=== PATIENT | male | born 1955 ===

== ENCOUNTER 2022-04-19 11:29 | Inpatient (IN) | payer MEDICARE, MEDICAID, SELFPAY ==
--- NOTE | ~2022-04-19 | XR_ITS ---
EXAMINATION: XR CHEST CLINICAL INFORMATION: Chest pain COMPARISON: None TECHNIQUE: 2 views of the chest were obtained. FINDINGS: Lungs are well expanded. No evidence of interstitial or airspace disease. Cardiac silhouette is moderately enlarged. Mild prominence of central pulmonary vessels but no overt edema. The right lateral costophrenic sulcus is slightly blunted. A vascular stent is seen in the region of the left axillary/subclavian vessels. XR/XR chest 2V IMPRESSION: * Cardiomegaly and mild pulmonary vascular congestion. * Trace right pleural effusion is noted.
--- NOTE | 2022-04-19 11:31 | ECG_ITS ---
Test Reason : chest pain Blood Pressure : / mmHG Vent. Rate : 075 BPM Atrial Rate : 075 BPM P-R Int : 162 ms QRS Dur : 092 ms QT Int : 416 ms P-R-T Axes : 050 011 068 degrees QTc Int : 464 ms Normal sinus rhythm Low voltage QRS Cannot rule out Anterior infarct , age undetermined Abnormal ECG When compared with ECG of 12-APR-2010 10:09, ST no longer elevated in Lateral leads T wave inversion no longer evident in Inferior leads QT has lengthened Referred By: Generic ED Physician Electronically Signed By:Tim Lan
[2022-04-19 11:50] VITALS: BP 184/85; PULSE 78; RESP 20; TEMP 36.1; O2SAT 95; BMI 33.5
[2022-04-19 11:50] LABS: MANUAL DIFF FLAG NO
--- NOTE | 2022-04-19 11:52 | ED.CHESTPAIN ---
HPI - Chest Pain General Chief Complaint: Chest Pain <Margoth Pineda CNP - Last Filed: 04/19/22 11:59> Stated Complaint: Chest pain/Leg pain/SOB <Margoth Pineda CNP - Last Filed: 04/19/22 11:59> Time Seen by Provider: 04/19/22 13:18 <Margoth Pineda CNP - Last Filed: 04/19/22 11:59> Source: patient and family <Richar Roldan DO - Last Filed: 04/19/22 14:56> Mode of arrival: ambulatory <Richar Roldan DO - Last Filed: 04/19/22 14:56> Limitations: language barrier <Richar Roldan DO - Last Filed: 04/19/22 14:56> History of Present Illness HPI narrative: 66-year-old male noncompliant with his dialysis. He can only tolerate about 2 hours worth of skin graft pain he has had to be admitted to the hospital to [facility] every day for weeks on end. He states that if he lays flat now he has fluid coming out of his eyes and he is feeling so short of breath that he has been falling. It is he has some pain to his right leg into his right arm and chest from fall yesterday. Patient was here for some time before being seen had x-ray and labs time patient had an EKG which is nonischemic appears to be fluid overloaded he is complaining of fluid leaking from his eyes when he lays flat and has had swelling. Concern the patient is noncompliant with his dialysis I tried explained to the patient that he does get thing that he can tolerate it. <Richar Roldan DO - Last Filed: 04/19/22 14:56> MD complaint: chest pain and other <Richar Roldan DO - Last Filed: 04/19/22 14:56> Related Data Allergies/Adverse Reactions: Allergies Allergy/AdvReac Type Severity Reaction Status Date / Time No Known Allergies Allergy Verified 04/19/22 11:55 <Margoth Pineda CNP - Last Filed: 04/19/22 11:59> Review of Systems Review of Systems: Review of systems: General: Patient denies any fever chills recent illness or falls Musculoskeletal: Denies back pain or body aches or other injuries HEENT: denies headache, runny nose, ear pain Respiratory: shortness of breath, cough Cardiovascular: no chest pain or palpitations : denies dysuria, frequency Abdomen: no nausea vomiting denies abdominal pain Extremities: swelling, no pain Skin: no diaphoresis <Richar Roldan DO - Last Filed: 04/19/22 14:56> Yes all other systems are reviewed and are negative <Richar Roldan DO - Last Filed: 04/19/22 14:56> [facility] Social History Social History: Social History Advance Directives: No Advance Directives Information Provided: Yes <Margothbladimir Pineda CNP - Last Filed: 04/19/22 11:59> Physical Exam Vital Signs: Vital Signs: Last Vital Signs Temp 97.8 F 04/19/22 13:12 Pulse 79 04/19/22 13:12 Resp 18 04/19/22 13:12 BP 174/89 H 04/19/22 13:12 Pulse Ox 93 04/19/22 13:12 O2 Del Method 04/19/22 13:12 BMI result Body Mass Index 33.5 <Margoth Donato RAAD Pineda - Last Filed: 04/19/22 11:59> Vital Signs: Last Vital Signs Temp 97.8 F 04/19/22 13:12 Pulse 79 04/19/22 13:12 Resp 18 04/19/22 13:12 BP 174/89 H 04/19/22 13:12 Pulse Ox 93 04/19/22 13:12 O2 Del Method 04/19/22 13:12 BMI result Body Mass Index 33.5 <Richar Roldan DO - Last Filed: 04/19/22 14:56> General: Well-appearing well-nourished in no signs of distress HEENT: Normocephalic atraumatic Neck: No signs of JVD, no masses no tenderness or lymphadenopathy Cardiovascular: Regular rate and rhythm Respiratory: Clear to auscultation bilaterally Abdomen: Soft nontender no masses Extremities: Normal pedal pulses 1 + edema up to knees in abdomen Skin: Dry warm no rashes Back: No tenderness full ROM <Richar Roldan DO - Last Filed: 04/19/22 14:56> Course Course Course Narrative: This is an RME: Additional HPI, ROS, PE not included below will be deferred to primary provider. Patient is a 66 year old male who presents to the ED for evaluation of R sided chest pain since yesterday that is constant, weakness, multiple falls, nasal congestion, shortness of breath. Fall x 2 yesterday, without headstrike or LOC. Swelling to the legs, and to the face if he is supine for prolonged time such as with sleep Dialysis Monday, yesterday he only received 2 hours of dialysis as opposed to 4 hours because of cramping . Plan: labs, EKG, CXR, viral testing. at this time placed back in waiting room pending bed availability <Margoth Pineda CNP - Last Filed: 04/19/22 11:59> Medical Decision Making Medical Decision Making [facility] Narrative: Patient has never been here before. I will call nephrology. Patient does not appear to understand this and has not spoken to his door closer mechanic as he has had the same problem over the last 6 months. He does not know the name of his door closer mechanic.I spoke with Dr. Escobedo from Nephrology who agreed the patient would benefit from admission <Richar Roldan DO - Last Filed: 04/19/22 14:56> Differential Diagnosis Differential Diagnoses: The differential diagnosis associated with the presentation includes <Richar Roldan DO - Last Filed: 04/19/22 14:56> Chest pain unlikely ACS as he fell and hit his chest. He having CHF and is fluid overloaded due to not being able to tolerate his dialysis. <Richar Roldan DO - Last Filed: 04/19/22 14:56> Admission/Observation Consideration of admission/observation: Escalation of care including admission/observation considered <Richar Roldan DO - Last Filed: 04/19/22 14:56> Consult Healthcare Provider Management of the patient was discussed with: Pouch Maker <Richar Roldan DO - Last Filed: 04/19/22 14:56> Dr. Escobedo <Richar Roldan DO - Last Filed: 04/19/22 14:56> Lab Data [facility] Lab Attestation statement: I reviewed the patient's lab results. <Richar Roldan DO - Last Filed: 04/19/22 14:56> Result Diagrams: 04/19/22 11:44 04/19/22 11:44 <Margoth Pineda CNP - Last Filed: 04/19/22 11:59> Labs: Lab Results 04/19/22 04/19/22 04/19/22 Range/Units 11:44 11:44 11:44 WBC 6.7 (4.8-10.8) X10*3/uL RBC 5.69 (4.60-5.80) X10*6/uL Hgb 12.8 L (14.0-18.0) g/dl Hct 41.2 L (42.0-52.0) % MCV 72.4 L (80.0-98.0) fL MCH 22.5 L (27.0-33.0) pg MCHC 31.1 (31.0-36.0) g/dl RDW 17.8 H (11.0-16.0) % Plt Count 106 L (160-400) X10*3/uL MPV Not Reportable Immature Gran % (Auto) 0.4 (0.0-0.4) % Neut % (Auto) 69.3 (45-73) % Lymph % (Auto) 17.9 L (20-40) % [place] % (Auto) 9.5 (2-11) % Eos % (Auto) 2.5 (0-4) % Baso % (Auto) 0.4 (0-2) % Lymph # (Auto) 1.2 (1.2-4.9) X10*3/uL [place] # (Auto) 0.6 (0.1-1.2) X10*3/uL Eos # (Auto) 0.2 (0.0-0.4) X10*3/uL Baso # (Auto) 0.0 (0.0-0.2) X10*3/uL Abs Immat Gran (auto) 0.03 (0.00-0.03) X10*3/uL Absolute Neuts (auto) 4.6 (2.0-8.3) x10*3/uL Absolute Nucleated RBC 0.000 (0.0-0.012) X10*3/uL Nucleated RBC % (auto) 0.0 (0.0-0.2) /100WBC PT 15.0 H (10.0-13.1) SEC INR 1.3 H (0.9-1.1) Sodium 146 H (135-145) mmol/L Potassium 5.9 H (3.3-5.1) mmol/L Chloride 108 (96-108) mmol/L Carbon Dioxide 21 L (22-29) mmol/L Anion Gap 23 H (12-20) BUN 67 H (9-16) mg/dL Creatinine 12.51 H* (0.5-1.4) mg/dL Estim Creat Clear Calc 5.9 Estimated GFR 4 Random Glucose 197 H (60-115) mg/dL Calcium 7.4 L (8.4-10.2) mg/dL Magnesium 1.9 (1.6-2.6) mg/dL Total Bilirubin 0.6 (0.0-1.0) mg/dL AST 24 (5-37) U/L ALT 69 H (0-40) U/L Alkaline Phosphatase 150 H (39-117) U/L Troponin I High Sens (<3.5-35.0) ng/L B-Natriuretic Peptide (<100) pg/mL Total Protein 6.0 L (6.5-8.0) g/dL Albumin 3.6 (3.5-5.0) g/dL Lipase 41 (8-78) U/L COVID-19 ([facility]) (Negative) COVID-19 Clin Com Influenza Type A ([facility]YLE) (Negative) Influenza Type B (GAYLE) (Negative) Influenza A & B Note 04/19/22 04/19/22 04/19/22 Range/Units 11:44 11:44 11:44 WBC (4.8-10.8) X10*3/uL RBC (4.60-5.80) X10*6/uL Hgb (14.0-18.0) g/dl Hct (42.0-52.0) % MCV (80.0-98.0) fL MCH (27.0-33.0) pg MCHC (31.0-36.0) g/dl RDW (11.0-16.0) % Plt Count (160-400) X10*3/uL MPV Immature Gran % (Auto) (0.0-0.4) % Neut % (Auto) (45-73) % Lymph % (Auto) (20-40) % [place] % (Auto) (2-11) % Eos % (Auto) (0-4) % Baso % (Auto) (0-2) % Lymph # (Auto) (1.2-4.9) X10*3/uL [place] # (Auto) (0.1-1.2) X10*3/uL Eos # (Auto) (0.0-0.4) X10*3/uL Baso # (Auto) (0.0-0.2) X10*3/uL Abs Immat Gran (auto) (0.00-0.03) X10*3/uL Absolute Neuts (auto) (2.0-8.3) x10*3/uL Absolute Nucleated RBC (0.0-0.012) X10*3/uL Nucleated RBC % (auto) (0.0-0.2) /100WBC PT (10.0-13.1) SEC INR (0.9-1.1) Sodium (135-145) mmol/L Potassium (3.3-5.1) mmol/L Chloride (96-108) mmol/L Carbon Dioxide (22-29) mmol/L Anion Gap (12-20) BUN (9-16) mg/dL Creatinine (0.5-1.4) mg/dL Estim Creat Clear Calc Estimated GFR Random Glucose (60-115) mg/dL Calcium (8.4-10.2) mg/dL Magnesium (1.6-2.6) mg/dL Total Bilirubin (0.0-1.0) mg/dL AST (5-37) U/L ALT (0-40) U/L Alkaline Phosphatase (39-117) U/L Troponin I High Sens 76.3 H (<3.5-35.0) ng/L B-Natriuretic Peptide 3238 H (<100) pg/mL Total Protein (6.5-8.0) g/dL Albumin (3.5-5.0) g/dL Lipase (8-78) U/L COVID-19 ([facility]) (Negative) COVID-19 Clin Com Influenza Type A ([facility]YLE) Negative (Negative) Influenza Type B (GAYLE) Negative (Negative) Influenza A & B Note See Note 04/19/22 Range/Units 11:44 WBC (4.8-10.8) X10*3/uL RBC (4.60-5.80) X10*6/uL Hgb (14.0-18.0) g/dl Hct (42.0-52.0) % MCV (80.0-98.0) fL MCH (27.0-33.0) pg MCHC (31.0-36.0) g/dl RDW (11.0-16.0) % Plt Count (160-400) X10*3/uL MPV Immature Gran % (Auto) (0.0-0.4) % Neut % (Auto) (45-73) % Lymph % (Auto) (20-40) % [place] % (Auto) (2-11) % Eos % (Auto) (0-4) % Baso % (Auto) (0-2) % Lymph # (Auto) (1.2-4.9) X10*3/uL [place] # (Auto) (0.1-1.2) X10*3/uL Eos # (Auto) (0.0-0.4) X10*3/uL Baso # (Auto) (0.0-0.2) X10*3/uL Abs Immat Gran (auto) (0.00-0.03) X10*3/uL Absolute Neuts (auto) (2.0-8.3) x10*3/uL Absolute Nucleated RBC (0.0-0.012) X10*3/uL Nucleated RBC % (auto) (0.0-0.2) /100WBC PT (10.0-13.1) SEC INR (0.9-1.1) Sodium (135-145) mmol/L Potassium (3.3-5.1) mmol/L Chloride (96-108) mmol/L Carbon Dioxide (22-29) mmol/L Anion Gap (12-20) BUN (9-16) mg/dL Creatinine (0.5-1.4) mg/dL Estim Creat Clear Calc Estimated GFR Random Glucose (60-115) mg/dL Calcium (8.4-10.2) mg/dL Magnesium (1.6-2.6) mg/dL Total Bilirubin (0.0-1.0) mg/dL AST (5-37) U/L ALT (0-40) U/L Alkaline Phosphatase (39-117) U/L Troponin I High Sens (<3.5-35.0) ng/L B-Natriuretic Peptide (<100) pg/mL Total Protein (6.5-8.0) g/dL Albumin (3.5-5.0) g/dL Lipase (8-78) U/L COVID-19 ([facility]) Negative (Negative) COVID-19 Clin Com See Note Influenza Type A ([facility]YLE) (Negative) Influenza Type B ([facility]YLE) (Negative) Influenza A & B Note <Margoth Pineda, MANAGEMENT RECRUITER - Last Filed: 04/19/22 11:59> Lab Results 04/19/22 04/19/22 04/19/22 Range/Units 11:44 11:44 11:44 WBC 6.7 (4.8-10.8) X10*3/uL RBC 5.69 (4.60-5.80) X10*6/uL Hgb 12.8 L (14.0-18.0) g/dl Hct 41.2 L (42.0-52.0) % MCV 72.4 L (80.0-98.0) fL MCH 22.5 L (27.0-33.0) pg MCHC 31.1 (31.0-36.0) g/dl RDW 17.8 H (11.0-16.0) % Plt Count 106 L (160-400) X10*3/uL MPV Not Reportable Immature Gran % (Auto) 0.4 (0.0-0.4) % Neut % (Auto) 69.3 (45-73) % Lymph % (Auto) 17.9 L (20-40) % [place] % (Auto) 9.5 (2-11) % Eos % (Auto) 2.5 (0-4) % Baso % (Auto) 0.4 (0-2) % Lymph # (Auto) 1.2 (1.2-4.9) X10*3/uL [place] # (Auto) 0.6 (0.1-1.2) X10*3/uL Eos # (Auto) 0.2 (0.0-0.4) X10*3/uL Baso # (Auto) 0.0 (0.0-0.2) X10*3/uL Abs Immat Gran (auto) 0.03 (0.00-0.03) X10*3/uL Absolute Neuts (auto) 4.6 (2.0-8.3) x10*3/uL Absolute Nucleated RBC 0.000 (0.0-0.012) X10*3/uL Nucleated RBC % (auto) 0.0 (0.0-0.2) /100WBC PT 15.0 H (10.0-13.1) SEC INR 1.3 H (0.9-1.1) Sodium 146 H (135-145) mmol/L Potassium 5.9 H (3.3-5.1) mmol/L Chloride 108 (96-108) mmol/L Carbon Dioxide 21 L (22-29) mmol/L Anion Gap 23 H (12-20) BUN 67 H (9-16) mg/dL Creatinine 12.51 H* (0.5-1.4) mg/dL Estim Creat Clear Calc 5.9 Estimated GFR 4 Random Glucose 197 H (60-115) mg/dL Calcium 7.4 L (8.4-10.2) mg/dL Magnesium 1.9 (1.6-2.6) mg/dL Total Bilirubin 0.6 (0.0-1.0) mg/dL AST 24 (5-37) U/L ALT 69 H (0-40) U/L Alkaline Phosphatase 150 H (39-117) U/L Troponin I High Sens (<3.5-35.0) ng/L B-Natriuretic Peptide (<100) pg/mL Total Protein 6.0 L (6.5-8.0) g/dL Albumin 3.6 (3.5-5.0) g/dL Lipase 41 (8-78) U/L COVID-19 ([facility]) (Negative) COVID-19 Clin Com Influenza Type A ([facility]) (Negative) Influenza Type B ([facility]YLE) (Negative) Influenza A & B Note 04/19/22 04/19/22 04/19/22 Range/Units 11:44 11:44 11:44 WBC (4.8-10.8) X10*3/uL RBC (4.60-5.80) X10*6/uL Hgb (14.0-18.0) g/dl Hct (42.0-52.0) % MCV (80.0-98.0) fL MCH (27.0-33.0) pg MCHC (31.0-36.0) g/dl RDW (11.0-16.0) % Plt Count (160-400) X10*3/uL MPV Immature Gran % (Auto) (0.0-0.4) % Neut % (Auto) (45-73) % Lymph % (Auto) (20-40) % [place] % (Auto) (2-11) % Eos % (Auto) (0-4) % Baso % (Auto) (0-2) % Lymph # (Auto) (1.2-4.9) X10*3/uL [place] # (Auto) (0.1-1.2) X10*3/uL Eos # (Auto) (0.0-0.4) X10*3/uL Baso # (Auto) (0.0-0.2) X10*3/uL Abs Immat Gran (auto) (0.00-0.03) X10*3/uL Absolute Neuts (auto) (2.0-8.3) x10*3/uL Absolute Nucleated RBC (0.0-0.012) X10*3/uL Nucleated RBC % (auto) (0.0-0.2) /100WBC PT (10.0-13.1) SEC INR (0.9-1.1) Sodium (135-145) mmol/L Potassium (3.3-5.1) mmol/L Chloride (96-108) mmol/L Carbon Dioxide (22-29) mmol/L Anion Gap (12-20) BUN (9-16) mg/dL Creatinine (0.5-1.4) mg/dL Estim Creat Clear Calc Estimated GFR Random Glucose (60-115) mg/dL Calcium (8.4-10.2) mg/dL Magnesium (1.6-2.6) mg/dL Total Bilirubin (0.0-1.0) mg/dL AST (5-37) U/L ALT (0-40) U/L Alkaline Phosphatase (39-117) U/L Troponin I High Sens 76.3 H (<3.5-35.0) ng/L B-Natriuretic Peptide 3238 H (<100) pg/mL Total Protein (6.5-8.0) g/dL Albumin (3.5-5.0) g/dL Lipase (8-78) U/L COVID-19 ([facility]) (Negative) COVID-19 Clin Com Influenza Type A ([facility]) Negative (Negative) Influenza Type B ([facility]YLE) Negative (Negative) Influenza A & B Note See Note 04/19/22 Range/Units 11:44 WBC (4.8-10.8) X10*3/uL RBC (4.60-5.80) X10*6/uL Hgb (14.0-18.0) g/dl Hct (42.0-52.0) % MCV (80.0-98.0) fL MCH (27.0-33.0) pg MCHC (31.0-36.0) g/dl RDW (11.0-16.0) % Plt Count (160-400) X10*3/uL MPV Immature Gran % (Auto) (0.0-0.4) % Neut % (Auto) (45-73) % Lymph % (Auto) (20-40) % [place] % (Auto) (2-11) % Eos % (Auto) (0-4) % Baso % (Auto) (0-2) % Lymph # (Auto) (1.2-4.9) X10*3/uL [place] # (Auto) (0.1-1.2) X10*3/uL Eos # (Auto) (0.0-0.4) X10*3/uL Baso # (Auto) (0.0-0.2) X10*3/uL Abs Immat Gran (auto) (0.00-0.03) X10*3/uL Absolute Neuts (auto) (2.0-8.3) x10*3/uL Absolute Nucleated RBC (0.0-0.012) X10*3/uL Nucleated RBC % (auto) (0.0-0.2) /100WBC PT (10.0-13.1) SEC INR (0.9-1.1) Sodium (135-145) mmol/L Potassium (3.3-5.1) mmol/L Chloride (96-108) mmol/L Carbon Dioxide (22-29) mmol/L Anion Gap (12-20) BUN (9-16) mg/dL Creatinine (0.5-1.4) mg/dL Estim Creat Clear Calc Estimated GFR Random Glucose (60-115) mg/dL Calcium (8.4-10.2) mg/dL Magnesium (1.6-2.6) mg/dL Total Bilirubin (0.0-1.0) mg/dL AST (5-37) U/L ALT (0-40) U/L Alkaline Phosphatase (39-117) U/L Troponin I High Sens (<3.5-35.0) ng/L B-Natriuretic Peptide (<100) pg/mL Total Protein (6.5-8.0) g/dL Albumin (3.5-5.0) g/dL Lipase (8-78) U/L COVID-19 ([facility]) Negative (Negative) COVID-19 Clin Com See Note Influenza Type A ([facility]) (Negative) Influenza Type B ([facility]YLE) (Negative) Influenza A & B Note <Richar Roldan DO - Last Filed: 04/19/22 14:56> Critical Care Time Critical Care Time Critical Care Time: Yes <DO Marilin Darnell Last Filed: 04/19/22 14:56> Total Critical Care Time: 32 <DO Marilin Darnell Last Filed: 04/19/22 14:56> Attestation: Fluid overload discussion with nephrology <DO Marilin Darnell Last Filed: 04/19/22 14:56> Discharge Plan Discharge Clinical Impression: Dialysis complication, Congestive heart disease, Falling <Margoth Pineda CNP - Last Filed: 04/19/22 11:59> Patient Disposition: Admitted As Inpatient <Margoth Pineda CNP - Last Filed: 04/19/22 11:59>
[2022-04-19 11:57] LABS: INTERNATIONAL NORM RATIO 1.3 (0.9-1.1)
[2022-04-19 12:07] LABS: COVID-19 Test Negative (Negative); IDNOW Serial# 16C4AD1C
[2022-04-19 12:08] LABS: IDNOW Serial# BCCEAD1C; Influenza A Negative (Negative); Influenza B2 Negative (Negative)
[2022-04-19 12:09] LABS: Basophils Percent Auto 0.4 % (0-2); Eosinophils Absolute Auto 0.2 X10*3/uL (0.0-0.4); Eosinophils Percent Auto 2.5 % (0-4); Hematocrit 41.2 % (42.0-52.0); Hemoglobin 12.8 g/dl (14.0-18.0); Imm Gran Abs Auto 0.03 X10*3/uL (0.00-0.03); Imm Gran Pct Auto 0.4 % (0.0-0.4); Lymphocytes Absolute Auto 1.2 X10*3/uL (1.2-4.9); Lymphocytes Percent Auto 17.9 % (20-40); Mean Corpuscular HGB Conc 31.1 g/dl (31.0-36.0); Mean Corpuscular Hemoglobin 22.5 pg (27.0-33.0); Mean Corpuscular Volume 72.4 fL (80.0-98.0); Monocytes Absolute Auto 0.6 X10*3/uL (0.1-1.2); Monocytes Percent Auto 9.5 % (2-11); Neutrophils Absolute Auto 4.6 x10*3/uL (2.0-8.3); Neutrophils Percent Auto 69.3 % (45-73); Red Blood Count 5.69 X10*6/uL (4.60-5.80); Red Cell Distribution Width 17.8 % (11.0-16.0); White Blood Count 6.7 X10*3/uL (4.8-10.8)
[2022-04-19 12:12] LABS: B Type Natriuretic Peptide 3238 pg/mL (<100); Troponin-I High Sensitivity 76.3 ng/L (<3.5-35.0)
[2022-04-19 12:15] LABS: Alanine Aminotransferase 69 U/L (0-40); Albumin Level 3.6 g/dL (3.5-5.0); Alkaline Phosphatase 150 U/L (39-117); Aspartate Amino Transferase 24 U/L (5-37); Bilirubin Total 0.6 mg/dL (0.0-1.0); Calcium 7.4 mg/dL (8.4-10.2); Glucose Random 197 mg/dL (60-115); Lipase 41 U/L (8-78); Magnesium 1.9 mg/dL (1.6-2.6)
[2022-04-19 12:24] LABS: Platelet Count 106 X10*3/uL (160-400)
[2022-04-19 12:27] LABS: Anion Gap 23 (12-20); Blood Urea Nitrogen 67 mg/dL (9-16); Carbon Dioxide 21 mmol/L (22-29); Chloride 108 mmol/L (96-108); Creatinine Clr Calc Pharmacy 5.9; Estimated Glomerular Filt Rate 4; Potassium 5.9 mmol/L (3.3-5.1); Sodium 146 mmol/L (135-145)
[2022-04-19 13:12] VITALS: BP 174/89; PULSE 79; RESP 18; TEMP 36.6; O2SAT 93
[2022-04-19 14:56] VITALS: BP 172/77; PULSE 75; RESP 15; TEMP 36.6; O2SAT 97
--- NOTE | 2022-04-19 16:20 | P.HPHOSP_ITS ---
History of Present Illness Date of Service: 04/19/22 Attending physician on admission: Lily Candelario Chief Complaint: anasarca 66 year old male with ROBERT noncompliant with CPAP, insulin dependent type 2 diabetes, dyslipidemia, ESRD on dialysis MWF with [facility] [place], htn, hx occlusive thrombus on eliquis presented to the ED earlier this morning for evaluation of anasarca, orthopnea, diffuse myalgias and weakness. The patient has an AV fistula in the left arm and has been unable to tolerate more than 1-2 hours of his dialysis due to diffuse cramping though is compliant with attending dialysis appointments with last visit yesterday. He states the symptoms have been going on for about 2 weeks. On arrival, patient hypertensive to 172/77, vitals otherwise stable. No leukocytosis. Microcytic anemia with H/H 12.8/41.2%, MCV 72.4. Platelets 106. Creatinine 12.51, BUN 67. Sodium 146, potassium 5.9, chloride 108, CO2 21, anion gap 23. AST 24, ALT 69, alkaline phosphatase 150, initial troponin 76.3, repeat pending. BNP 3238. Negative for COVID-19, influenza. CXR showing cardiomegaly and mild pulmonary vascular congestion with trace right pleural effusions. Patient states he only produces minimal urine. ED discussed case with Dr. Escobedo recommending admission for ESRD and anasarca. Review of Systems Review of Systems: General: No fevers, malaise, unintentional weight loss Cardiovascular: No chest pain, palpitations, or leg edema Respiratory: +ya, +orthopnea. No wheezing, cough GI: No abdominal pain, nausea, vomiting, diarrhea, constipation, melena, hematochezia : No dysuria, hematuria, increased urinary frequency, decreased urinary output MSK: +myalgia. No back pain Neuro: +generalized weakenss. No headaches, focal weakness, paresthesias Skin: No rashes or lesions [facility] Medical History (Updated 04/19/22 @ 16:51 by KYLAH Damon) A-V fistula ESRD on dialysis Hyperlipidemia Hypertension Noncompliance with CPAP treatment Occlusive thrombus ROBERT (obstructive sleep apnea) Pulmonary edema Type 2 diabetes mellitus Social History (Updated 04/19/22 @ 16:40 by KYLAH Damon) Alcohol intake: never Patient Tobacco Use Status: Former Tobacco user Use of substances other than those prescribed or required for medical reasons: No Advance Directives: No Advance Directives Information Provided: Yes Meds Allergies Allergy/AdvReac Type Severity Reaction Status Date / Time No Known Allergies Allergy Verified 04/19/22 11:55 Physical Exam Vital Signs and Narrative: Vital Signs: Last Vital Signs Temp 97.8 F 04/19/22 14:56 Pulse 75 04/19/22 14:56 Resp 15 04/19/22 14:56 BP 172/77 H 04/19/22 14:56 Pulse Ox 97 04/19/22 14:56 O2 Del Method 04/19/22 14:56 O2 Flow Rate 2 04/19/22 14:56 BMI result Body Mass Index 33.5 Constitutional - Awake and Alert, No apparent distress Eyes - PERRLA, EOMI Cardiovascular - S1S2, RRR, anasarca ble and bue, face, and abdomen Respiratory - Normal lung expansion, Normal respiratory effort, No respiratory distress, CTA bilaterally Gastrointestinal - NT / ND; +BS; No rebound or guarding Extremities - no calf tenderness bilaterally, no swelling Skin - Warm/Dry Neurological - Alert & oriented x3, CN II-XII in tact, 4/5 strength BUE and BLE Psychological - Appropriate affect Results Labs 04/19/22 11:44 04/19/22 11:44 Labs: Laboratory Results - last 24 hr 04/19/22 04/19/22 04/19/22 11:44 11:44 11:44 MCV 72.4 L MCH 22.5 L MCHC 31.1 RDW 17.8 H Plt Count 106 L MPV Not Reportable Immature Gran % (Auto) 0.4 Neut % (Auto) 69.3 Lymph % (Auto) 17.9 L [place] % (Auto) 9.5 Eos % (Auto) 2.5 Baso % (Auto) 0.4 Lymph # (Auto) 1.2 [place] # (Auto) 0.6 Eos # (Auto) 0.2 Baso # (Auto) 0.0 Abs Immat Gran (auto) 0.03 Absolute Neuts (auto) 4.6 Absolute Nucleated RBC 0.000 Nucleated RBC % (auto) 0.0 PT 15.0 H INR 1.3 H Anion Gap 23 H Estim Creat Clear Calc 5.9 Estimated GFR 4 Random Glucose 197 H Calcium 7.4 L Magnesium 1.9 Total Bilirubin 0.6 AST 24 ALT 69 H Alkaline Phosphatase 150 H Troponin I High Sens B-Natriuretic Peptide Total Protein 6.0 L Albumin 3.6 Lipase 41 COVID-19 ([facility]) COVID-19 Clin Com Influenza Type A ([facility]YLE) Influenza Type B ([facility]YLE) Influenza A & B Note 04/19/22 04/19/22 04/19/22 11:44 11:44 11:44 MCV MCH MCHC RDW Plt Count MPV Immature Gran % (Auto) Neut % (Auto) Lymph % (Auto) [place] % (Auto) Eos % (Auto) Baso % (Auto) Lymph # (Auto) [place] # (Auto) Eos # (Auto) Baso # (Auto) Abs Immat Gran (auto) Absolute Neuts (auto) Absolute Nucleated RBC Nucleated RBC % (auto) PT INR Anion Gap Estim Creat Clear Calc Estimated GFR Random Glucose Calcium Magnesium Total Bilirubin AST ALT Alkaline Phosphatase Troponin I High Sens 76.3 H B-Natriuretic Peptide 3238 H Total Protein Albumin Lipase COVID-19 ([facility]) COVID-19 [employer] Com Influenza Type A ([facility]YLE) Negative Influenza Type B ([facility]YLE) Negative Influenza A & B Note See Note 04/19/22 11:44 MCV MCH MCHC RDW Plt Count MPV Immature Gran % (Auto) Neut % (Auto) Lymph % (Auto) [place] % (Auto) Eos % (Auto) Baso % (Auto) Lymph # (Auto) [place] # (Auto) Eos # (Auto) Baso # (Auto) Abs Immat Gran (auto) Absolute Neuts (auto) Absolute Nucleated RBC Nucleated RBC % (auto) PT INR Anion Gap Estim Creat Clear Calc Estimated GFR Random Glucose Calcium Magnesium Total Bilirubin AST ALT Alkaline Phosphatase Troponin I High Sens B-Natriuretic Peptide Total Protein Albumin Lipase COVID-19 ([place]) Negative COVID-19 Clin Com See Note Influenza Type A (GAYLE) Influenza Type B (GAYLE) Influenza A & B Note Imaging Radiologist's Impressions: Impressions Chest X-Ray 04/19/22 12:13 IMPRESSION: * Cardiomegaly and mild pulmonary vascular congestion. * Trace right pleural effusion is noted. Assessment and Plan (1) ESRD on dialysis: Status: Acute Plan 66 year old male with ROBERT noncompliant with CPAP, insulin dependent type 2 diabetes, dyslipidemia, ESRD on dialysis MWF with [facility], htn, hx occlusive thrombus on eliquis admitted for ESRD with anasarca and pulmonary edema. #ESRD on dialysis -Creat 12.51, BUN 67 -AV fistula LUE. Compliant with dialysis appts but has only been able to tolerate 1-2 hours per sessions MWF -Discussed with Dr. escobedo, HD tomorrow -Appreciate nephrology input -Avoid nephrotoxins -Low sodium diet -Follow BMP -admit to telemetry #Anasarca and pulmonary edema- cardiorenal in etiology r/t ESRD -Only produces minimal urine, not likely to benefit from diuretics -HD tomorrow as above #Elevated trops- likely cardiorenal -initial troponin 76.3. Repeat pending -patient denies any chest pain. EKG nonischemic #Elevated BNP -Likely cardiorenal r/t ESRD -symptomatic with orthopnea, dyspnea on exertion -CXR with pulmonary edema. Pt does not produce much urine,not likely to benefit from diuretics -HD tomorrow as above -consider echo if no improvements #Hyperkalemia- r/t ESRD -K 5.9 -10mg lokelma once -HD tomorrow -No peaked t waves on ekg -follow bmp -Hx occlusive thombus right IJ -continue eliquis DVT prophylaxis-on Eliquis Full code Patient requires inpatient stay of at least 2 midnights for management ESRD with anasarca and pulmonary edema as well as electrolyte abnormalities requiring hemodialysis and very close monitoring of renal function electrolyte levels and expert consultation Time Spent With Patient Time: Total time managing care of this patient today ____ minutes. Quality Stroke Does the patient have a stroke diagnosis?: No VTE Prior VTE?: No VTE Risk Level:: Medical - moderate - high VTE Device Contraindication: Treatment Not Indicated VTE Drug Contraindication: N/A - Med Ordered
--- NOTE | 2022-04-19 16:53 | PHA.MEDREC ---
Pharmacy Consult ? Medication Reconciliation Pharmacy has completed the medication reconciliation.
[2022-04-19] MEDS: Sodium Zirconium Cyclosilicate 10 GM POWD.PACK PO (17:06)
[2022-04-19 17:12] LABS: Troponin-I High Sensitivity 69.3 ng/L (<3.5-35.0)
[2022-04-19] MEDS: Sevelamer Carbonate Tablet 800 MG TABLET 1600 MG PO (17:57)
--- NOTE | 2022-04-19 19:08 | PC.NURSE ---
Pt amublates to restroom however needs a stand by assist
[2022-04-19 19:47] VITALS: BP 157/71; PULSE 80; RESP 13; TEMP 36.7; O2SAT 95
[2022-04-19] MEDS: guaiFENesin 100 MG/5 ML LIQUID 15 ML PO (21:34)
[2022-04-19] MEDS: hydrALAZINE HCl 25 MG TABLET PO (21:35)
[2022-04-19] MEDS: carvediloL 3.125 MG TABLET PO (21:35)
[2022-04-19] MEDS: Doxazosin Mesylate 2 MG TABLET 4 MG PO (21:35)
[2022-04-19] MEDS: Sennosides/Docusate Sodium TABLET 1 TAB PO (21:35)
[2022-04-19] MEDS: Apixaban 5 MG TABLET PO (21:35)
[2022-04-19 22:33] LABS: Glucose, Whole Blood 209 mg/dL (60-115)
[2022-04-19] MEDS: Insulin Lispro 100 UNIT/ML 3 ML VIAL SUBCUT (22:45)
[2022-04-19] MEDS: Acetaminophen 325 MG TABLET 650 MG PO (23:22)
[2022-04-19] MEDS: Albuterol/Iprat 2.5/0.5MG 3 ML AMPUL.NEB INHALE (23:39)
[2022-04-19 23:42] VITALS: PULSE 75; RESP 18; O2SAT 95
[2022-04-20] VITALS (8 sets, daily range): BP systolic 134–188; BP diastolic 64–97; PULSE 68–94; RESP 16–20; TEMP 36.4–36.9; O2SAT 91–98; BMI 33.4
[2022-04-20] MEDS: Acetaminophen 325 MG TABLET 650 MG PO (05:29)
[2022-04-20] MEDS: Omeprazole 20 MG CAPSULE.DR PO (05:30)
[2022-04-20 06:36] LABS: MANUAL DIFF FLAG NO
[2022-04-20 06:48] LABS: Basophils Percent Auto 0.6 % (0-2); Eosinophils Absolute Auto 0.3 X10*3/uL (0.0-0.4); Eosinophils Percent Auto 4.3 % (0-4); Hematocrit 40.2 % (42.0-52.0); Hemoglobin 12.4 g/dl (14.0-18.0); Imm Gran Abs Auto 0.03 X10*3/uL (0.00-0.03); Imm Gran Pct Auto 0.4 % (0.0-0.4); Lymphocytes Absolute Auto 1.4 X10*3/uL (1.2-4.9); Lymphocytes Percent Auto 18.8 % (20-40); Mean Corpuscular HGB Conc 30.8 g/dl (31.0-36.0); Mean Corpuscular Hemoglobin 22.3 pg (27.0-33.0); Mean Corpuscular Volume 72.4 fL (80.0-98.0); Monocytes Absolute Auto 0.7 X10*3/uL (0.1-1.2); Monocytes Percent Auto 10.1 % (2-11); Neutrophils Absolute Auto 4.7 x10*3/uL (2.0-8.3); Neutrophils Percent Auto 65.8 % (45-73); Red Blood Count 5.55 X10*6/uL (4.60-5.80); Red Cell Distribution Width 17.2 % (11.0-16.0); White Blood Count 7.2 X10*3/uL (4.8-10.8)
[2022-04-20 06:51] LABS: Platelet Count 97 X10*3/uL (160-400)
[2022-04-20 07:04] LABS: Blood Urea Nitrogen 75 mg/dL (9-16); Calcium 7.4 mg/dL (8.4-10.2); Creatinine Clr Calc Pharmacy 5.4; Estimated Glomerular Filt Rate 4; Glucose Random 63 mg/dL (60-115)
[2022-04-20 07:09] LABS: Anion Gap 25 (12-20); Carbon Dioxide 18 mmol/L (22-29); Chloride 110 mmol/L (96-108); Potassium 5.9 mmol/L (3.3-5.1); Sodium 147 mmol/L (135-145)
[2022-04-20 07:25] LABS: Glucose, Whole Blood 67 mg/dL (60-115)
[2022-04-20] MEDS: Fluticasone/Vilanterol 100/25 BLST.W.DEV 1 PUFF INHALE (07:49)
[2022-04-20 08:22] LABS: Glucose, Whole Blood 84 mg/dL (60-115)
[2022-04-20 08:51] LABS: Glucose, Whole Blood 119 mg/dL (60-115)
--- NOTE | 2022-04-20 11:32 | P.CONNP_ITS ---
History of Present Illness Reason for Consult Consult date: 04/20/22 Chief Complaint Chief complaint: ESRD, anasarca History of Present Illness Narrative: 66-year-old gentleman with history of end-stage renal disease presented with generalized edema, orthopnea and myalga. He normally has hemodialysis Monday and produces minimal urine. Apparently the patient is unable to tolerate hemodialysis more than 1-2 hours due to diffuse cramping. At the time of the consultation he is having dialysis. Review of Systems Review of Systems 10 points ROS negative except for pertinent in HPI [facility] Past Medical History Medical History (Updated 04/20/22 @ 11:36 by Kole Escobedo MD) A-V fistula ESRD on dialysis Hyperlipidemia Hypertension Noncompliance with CPAP treatment Occlusive thrombus ROBERT (obstructive sleep apnea) Pulmonary edema Type 2 diabetes mellitus Social History Social History (Updated 04/19/22 @ 16:40 by KYLAH Damon) Household Members: Family Housing: House Alcohol intake: never Patient Tobacco Use Status: Former Tobacco user Use of substances other than those prescribed or required for medical reasons: No Currently Displaying Signs/Symptoms of Drug Intoxication Withdrawal: No Have you been hit, kicked, punched, or otherwise hurt by someone within the past year? If so, by whom?: No Do you feel safe in your current relationship?: Yes Is there a partner from a previous relationship who is making you feel unsafe now?: No Are you made to feel afraid or neglected: No Advance Directives: No Advance Directives Information Provided: Yes Do you have thoughts of harming others: None Do you have a plan to hurt others: No Plan Recently lost weight without trying: No Meds Allergies Allergy/AdvReac Type Severity Reaction Status Date / Time No Known Allergies Allergy Verified 04/19/22 11:55 Active Medications: Current Medications Acetaminophen (Acetaminophen 325 Mg Tablet) 650 mg PO Q6H PRN PRN Reason: Pain, Mild (Pain Scale 1-3) Last Admin: 04/20/22 05:29 Dose: 650 mg Albuterol Sulfate (Albuterol Sulfate 90 Mcg 8 Gm Inhaler) 2 puff INHALE Q4H PRN PRN Reason: Shortness Of Breath Albuterol/Ipratropium (Albuterol/Iprat 2.5/0.5mg 3 Ml Ampul.Neb) 3 ml INHALE Q4 H PRN PRN Reason: Wheezing Last Admin: 04/19/22 23:39 Dose: 3 ml Allopurinol (Allopurinol 100 Mg Tablet) 100 mg PO MOWEFR@1600 [facility] Apixaban (Apixaban 5 Mg Tablet) 5 mg PO BID [facility] Last Admin: 04/19/22 21:35 Dose: 5 mg Aspirin (Aspirin Enteric Coated 81 Mg Tablet.) 81 mg PO DAILY [facility] Atorvastatin Calcium (Atorvastatin Calcium 40 Mg Tablet) 40 mg PO DAILY [facility] Carvedilol (Carvedilol 3.125 Mg Tablet) 3.125 mg PO BID [facility]; Protocol Last Admin: 04/19/22 21:35 Dose: 3.125 mg Dextrose (Dextrose 50 % 25 Gm/50 Ml Syringe) 25 gm IVPUSH Q15M PRN; Protocol PRN Reason: per Hypoglycemia Standing Ord. Docusate Sodium (Docusate Sodium 100 Mg Capsule) 100 mg PO DAILY PRN PRN Reason: Constipation Doxazosin Mesylate (Doxazosin Mesylate 2 Mg Tablet) 4 mg PO BEDTIME [facility]; Protocol Last Admin: 04/19/22 21:35 Dose: 4 mg Fluticasone/Vilanterol (Fluticasone/Vilanterol 100/25 Blst.W.Dev) 1 puff INHALE RDAILY [facility] Last Admin: 04/20/22 07:49 Dose: 1 puff Furosemide (Furosemide 40 Mg Tablet) 80 mg PO DAILY [facility]; Protocol Glucose (Glucose Gel 15 Gm Gel..Gram.) 15 gm PO Q15M PRN; Protocol PRN Reason: per Hypoglycemia Standing Ord. Guaifenesin (Guaifenesin 100 Mg/5 Ml Liquid) 15 ml PO TID [facility] Last Admin: 04/19/22 21:34 Dose: 15 ml Hydralazine HCl (Hydralazine Hcl 25 Mg Tablet) 25 mg PO TID [facility]; Protocol Last Admin: 04/19/22 21:35 Dose: 25 mg Insulin Human Lispro (Insulin Lispro 100 Unit/Ml 3 Ml Vial) 0 unit SUBCUT QIDACHS [facility]; Protocol Last Admin: 04/20/22 07:57 Dose: Not Given Omeprazole (Omeprazole 20 Mg Capsule.) 20 mg PO DAILY@0630 [facility] Last Admin: 04/20/22 05:30 Dose: 20 mg Ondansetron HCl (Ondansetron Hcl 4 Mg/2 Ml Vial) 4 mg IVPUSH Q8H PRN PRN Reason: Nausea and Vomiting Pharmacy Consult (Consult Rx Perform Med Rec) 1 each MISCELLANE ONCE PRN PRN Reason: Consult order Polyethylene Glycol (Polyethylene Glycol 3350 17 Gm Powd.Pack) 17 gm PO DAILY PRN PRN Reason: Constipation Pregabalin (Pregabalin 75 Mg Capsule) 75 mg PO DAILY [facility] Senna/Docusate Sodium (Sennosides/Docusate Sodium Tablet) 1 tab PO BID [facility] Last Admin: 04/19/22 21:35 Dose: 1 tab Sevelamer Carbonate (Sevelamer Carbonate Tablet 800 Mg Tablet) 1,600 mg PO TIDWM [facility] Last Admin: 04/19/22 17:57 Dose: 1,600 mg Home Medications Medication Instructions Recorded Confirmed Last Taken Type albuterol sulfate 90 mcg/actuation 2 puff inhalation Q4H PRN 04/19/22 04/19/22 Unknown History aerosol inhaler Shortness Of Breath allopurinol 100 mg tablet 100 mg PO MOWEFR@1600 04/19/22 04/19/22 04/18/22 History apixaban 5 mg tablet (Eliquis) 5 mg PO BID 04/19/22 04/19/22 04/19/22 History aspirin 81 mg tablet,delayed 81 mg PO DAILY 04/19/22 04/19/22 04/19/22 History release atorvastatin 40 mg tablet 40 mg PO DAILY 04/19/22 04/19/22 04/19/22 History carvedilol 3.125 mg tablet 3.125 mg PO BID 04/19/22 04/19/22 04/19/22 History doxazosin 4 mg tablet 4 mg PO BEDTIME 04/19/22 04/19/22 04/18/22 History fluticasone 250 mcg-salmeterol 50 1 inh inhalation BID 04/19/22 04/19/22 04/19/22 History mcg/dose blistr powdr for inhalation furosemide 80 mg tablet 80 mg PO DAILY 04/19/22 04/19/22 04/19/22 History guaifenesin 100 mg/5 mL oral 300 mg PO TID COUGH 04/19/22 04/19/22 Unknown History liquid (Mel-Tussin) hydralazine 25 mg tablet 25 mg PO TID 04/19/22 04/19/22 04/19/22 History insulin lispro 100 unit/mL 4 unit subcut BIDAC 04/19/22 04/19/22 04/19/22 History subcutaneous pen (Humalog KwikPen (U-100) Insulin) ipratropium 0.5 mg-albuterol 3 mg 3 ml inhalation Q4H PRN Wheezing 04/19/22 04/19/22 Unknown History (2.5 mg base)/3 mL nebulization soln omeprazole 20 mg capsule,delayed 20 mg PO DAILY 04/19/22 04/19/22 04/19/22 History release polyethylene glycol 3350 17 17 g PO DAILY PRN Constipation 04/19/22 04/19/22 Unknown History gram/dose oral powder pregabalin 75 mg capsule 75 mg PO DAILY 04/19/22 04/19/22 04/19/22 History sennosides 8.6 mg-docusate sodium 1 tab PO BID 04/19/22 04/19/22 04/19/22 History 50 mg tablet (Senna-Time S) sevelamer carbonate 800 mg tablet 1,600 mg PO TIDWM 04/19/22 04/19/22 04/19/22 History Physical Exam Vital Signs: Last Vital Signs Temp 98.5 F 04/20/22 11:15 Pulse 73 04/20/22 11:15 Resp 20 04/20/22 11:15 BP 188/97 H 04/20/22 11:15 Pulse Ox 98 04/20/22 11:15 O2 Del Method 04/20/22 11:15 O2 Flow Rate 2 04/20/22 11:15 BMI result Body Mass Index 33.4 Const General: no acute distress, alert and awake HEENT Head: Yes normocephalic and Yes atraumatic Neck Neck: Yes supple Resp Auscultation: diminished lung sounds Cardio Heart sounds: S1 normal heart sound present and S2 normal heart sound present GI Palpation (GI): Soft to palpation and nontender Extrem General: Yes edema Results Lab Results 04/20/22 05:59 04/20/22 05:59 Lab results: Chemistry 04/19/22 04/20/22 11:44 05:59 Sodium 146 H 147 H Potassium 5.9 H 5.9 H Carbon Dioxide 21 L 18 L BUN 67 H 75 H Creatinine 12.51 H* 13.44 H* Calcium 7.4 L 7.4 L Hematology 04/19/22 04/20/22 11:44 05:59 WBC 6.7 7.2 Hgb 12.8 L 12.4 L Plt Count 106 L 97 L Assessment and Plan (1) ESRD (end stage renal disease): Status: Acute (2) Hyperkalemia: Status: Acute (3) Fluid overload: Status: Acute (4) Anemia: Status: Acute Plan usually has HD -- at [facility] dialysis non adherence volume status above dry weight REC HD today optimize volume status improve adherence no need for NAYE (Hb > 11) phosphate binders renal diet Time Spent With Patient Time: Total time managing care of this patient today ____ minutes. Procedures Date of Service Date of Service: 04/20/22
[2022-04-20 11:34] LABS: Glucose, Whole Blood 152 mg/dL (60-115)
--- NOTE | 2022-04-20 12:34 | MHC.CM.PN ---
with interpertator met with pt also spoke with son jovon arellano [phone] who confirms that pt has an rn latricia [phone] [facility] who manages his lock box he is covid x 5 pt [facility] [place] plan resume previous servceices
[2022-04-20] MEDS: Sennosides/Docusate Sodium TABLET 1 TAB PO ×2 (13:25→21:24)
[2022-04-20] MEDS: Atorvastatin Calcium 40 MG TABLET PO (13:27)
[2022-04-20] MEDS: Aspirin Enteric Coated 81 MG TABLET.DR PO (13:30)
[2022-04-20] MEDS: carvediloL 3.125 MG TABLET PO ×2 (13:31→21:23)
[2022-04-20] MEDS: Pregabalin 75 MG CAPSULE PO (13:32)
[2022-04-20] MEDS: hydrALAZINE HCl 25 MG TABLET PO ×2 (13:32→21:23)
[2022-04-20] MEDS: Sevelamer Carbonate Tablet 800 MG TABLET 1600 MG PO ×2 (13:33→17:55)
[2022-04-20] MEDS: Insulin Lispro 100 UNIT/ML 3 ML VIAL SUBCUT ×2 (13:34→21:27)
[2022-04-20] MEDS: traMADoL HCL 50 MG TABLET 25 MG PO (14:49)
--- NOTE | 2022-04-20 15:26 | P.PNIM_ITS ---
Subjective Subjective Date of Service: 04/20/22 Interval History: Returned from hemodialysis, post dialysis developed generalized discomfort, but feels better now, no nausea no vomiting, no headache no lightheadedness or dizziness tolerating diet, received only 2 hours of dialysis due to generalized discomfort. Review of Systems General no headache no dizziness no fever chills. CVS no chest pain, no palpitation. Respiratory no cough no sob Gastrointestinal no nausea, no vomiting, no abdominal pain Review of Systems: Yes all other systems are reviewed and are negative Physical Exam Vital Signs: Vital Signs: Last Vital Signs Temp 97.5 F 04/21/22 11:30 Pulse 75 04/21/22 11:30 Resp 14 04/21/22 11:30 BP 189/95 H 04/21/22 11:30 Pulse Ox 92 04/21/22 11:30 O2 Del Method 04/21/22 11:30 O2 Flow Rate 2 04/20/22 11:15 BMI result Body Mass Index 33.4 Const: Other: General resting comfortably in no acute distress. Periorbital edema improved Neck supple no JVD. CVS regular rate rhythm, Respiratory lungs clear to auscultation, no respiratory distress, no wheeze Gastrointestinal abdomen soft, nontender, bowel sounds audible, no guarding , no rigidity. Extremities no edema. Neuro nonfocal Skin no rash Psych appropriate affect Objective Data Active Medications Acetaminophen (Acetaminophen 325 Mg Tablet) 650 mg PO Q6H PRN PRN Reason: Pain, Mild (Pain Scale 1-3) Last Admin: 04/20/22 05:29 Dose: 650 mg Documented By: DAVINA Albuterol Sulfate (Albuterol Sulfate 90 Mcg 8 Gm Inhaler) 2 puff INHALE Q4H PRN PRN Reason: Shortness Of Breath Albuterol/Ipratropium (Albuterol/Iprat 2.5/0.5mg 3 Ml Ampul.Neb) 3 ml INHALE Q4H PRN PRN Reason: Wheezing Last Admin: 04/19/22 23:39 Dose: 3 ml Documented By: HEATHER Allopurinol (Allopurinol 100 Mg Tablet) 100 mg PO MOWEFR@1600 [facility] Last Admin: 04/20/22 17:56 Dose: 100 mg Documented By: LOBO Apixaban (Apixaban 5 Mg Tablet) 5 mg PO BID [facility] Last Admin: 04/21/22 07:56 Dose: 5 mg Documented By: JAYCEE Aspirin (Aspirin Enteric Coated 81 Mg Tablet.Dr) 81 mg PO DAILY [facility] Last Admin: 04/21/22 07:55 Dose: 81 mg Documented By: JAYCEE Atorvastatin Calcium (Atorvastatin Calcium 40 Mg Tablet) 40 mg PO DAILY [facility] Last Admin: 04/21/22 07:55 Dose: 40 mg Documented By: JAYCEE Benzocaine (Throat Lozenge, Medicated Lozenge) 1 lozenge MUCOUS MEM Q2H PRN PRN Reason: Sore Throat Last Admin: 04/20/22 21:26 Dose: 1 lozenge Documented By: LOBO Carvedilol (Carvedilol 3.125 Mg Tablet) 3.125 mg PO BID [facility]; Protocol Last Admin: 04/21/22 07:56 Dose: 3.125 mg Documented By: JAYCEE Dextrose (Dextrose 50 % 25 Gm/50 Ml Syringe) 25 gm IVPUSH Q15M PRN; Protocol PRN Reason: per Hypoglycemia Standing Ord. Docusate Sodium (Docusate Sodium 100 Mg Capsule) 100 mg PO DAILY PRN PRN Reason: Constipation Doxazosin Mesylate (Doxazosin Mesylate 2 Mg Tablet) 4 mg PO BEDTIME [facility]; Protocol Last Admin: 04/20/22 21:23 Dose: 4 mg Documented By: LOBO Fluticasone/Vilanterol (Fluticasone/Vilanterol 100/25 Blst.W.Dev) 1 puff INHALE RDAILY [facility] Last Admin: 04/21/22 08:10 Dose: 1 puff Documented By: DAVIN Furosemide (Furosemide 40 Mg Tablet) 80 mg PO DAILY [facility]; Protocol Last Admin: 04/21/22 07:55 Dose: 80 mg Documented By: JAYCEE Glucose (Glucose Gel 15 Gm Gel..Gram.) 15 gm PO Q15M PRN; Protocol PRN Reason: per Hypoglycemia Standing Ord. Guaifenesin (Guaifenesin 100 Mg/5 Ml Liquid) 15 ml PO TID [facility] Last Admin: 04/21/22 07:53 Dose: 15 ml Documented By: JAYCEE Hydralazine HCl (Hydralazine Hcl 25 Mg Tablet) 25 mg PO TID [facility]; Protocol Last Admin: 04/21/22 07:55 Dose: 25 mg Documented By: JAYCEE Insulin Human Lispro (Insulin Lispro 100 Unit/Ml 3 Ml Vial) 0 unit SUBCUT QIDACHS [facility]; Protocol Last Admin: 04/21/22 11:58 Dose: 2 unit Documented By: JAYCEE Omeprazole (Omeprazole 20 Mg Capsule.) 20 mg PO DAILY@0630 [facility] Last Admin: 04/21/22 06:09 Dose: 20 mg Documented By: DAVINA Ondansetron HCl (Ondansetron Hcl 4 Mg/2 Ml Vial) 4 mg IVPUSH Q8H PRN PRN Reason: Nausea and Vomiting Oxycodone HCl (Oxycodone Hcl Immed Release 5 Mg Tablet) 5 mg PO Q8H PRN PRN Reason: Pain, Moderate (Pain Scale 4-6 Last Admin: 04/21/22 07:54 Dose: 5 mg Documented By: JAYCEE Pharmacy Consult (Consult Rx Perform Med Rec) 1 each MISCELLANE ONCE PRN PRN Reason: Consult order Polyethylene Glycol (Polyethylene Glycol 3350 17 Gm Powd.Pack) 17 gm PO DAILY PRN PRN Reason: Constipation Pregabalin (Pregabalin 75 Mg Capsule) 75 mg PO DAILY [facility] Last Admin: 04/21/22 07:55 Dose: 75 mg Documented By: JAYCEE Senna/Docusate Sodium (Sennosides/Docusate Sodium Tablet) 1 tab PO BID [facility] Last Admin: 04/21/22 07:55 Dose: 1 tab Documented By: JAYCEE Sevelamer Carbonate (Sevelamer Carbonate Tablet 800 Mg Tablet) 1,600 mg PO TIDWM [facility] Last Admin: 04/21/22 11:59 Dose: 1,600 mg Documented By: JAYCEE Labs 04/20/22 05:59 04/21/22 08:22 Labs: Laboratory Results - last 24 hr 04/20/22 04/20/22 04/20/22 17:18 19:43 20:48 Anion Gap Estim Creat Clear Calc Estimated GFR POC Glucose 105 253 H Random Glucose Calcium Troponin I High Sens 58.5 H 04/21/22 04/21/22 04/21/22 07:07 08:22 11:28 Anion Gap 22 H Estim Creat Clear Calc 6.5 Estimated GFR 5 POC Glucose 179 H 185 H Random Glucose 159 H Calcium 7.9 L D Troponin I High Sens Assessment and Plan (1) Fluid overload: Status: Acute (2) Hyperkalemia: Status: Acute Plan 66 year old male with ROBERT noncompliant with CPAP, insulin dependent type 2 diabetes, dyslipidemia, ESRD on dialysis MWF with [facility], htn, hx occlusive thrombus on eliquis admitted for ESRD with anasarca and pulmonary edema. #ESRD on dialysis -patient presented with volume overload since receives only 2 hours of hemodialysis restricted due to generalize discomfort, Creat 12.51, BUN 67 -AV fistula LUE. Hemodialysis MWF -patient underwent 2 hours of hemodialysis today overall feeling better shortness of breath resolved significant improvement in periorbital edema -renal diet -Follow BMP, being followed by Nephrology -generalized body ache will give as needed oxycodone # fluid overload/ Anasarca and pulmonary edema- due to noncompliance with dialysis - continue Lasix makes urine - renal recommend 2 more hours of hemodialysis tomorrow # hypertension with elevated blood pressures continue all home medications and follow blood pressure. #Elevated trops- no chest pain troponin elevated but flat EKG nonischemic, no further workup #Elevated BNP likely due to poor renal function, chest x-ray with fluid overload , shortness of breath improved with hemodialysis #Hyperkalemia- r/t ESRD -K 5.9 treated with Brissa follow BMP, no acute EKG changes -Hx occlusive thombus right IJ -continue eliquis DVT prophylaxis-on Eliquis Full code Patient will require continued inpatient hospitalization for repeat hemodialysis due to generalized anasarca. Time Spent With Patient Time: Total time managing care of this patient today ____ minutes. Quality Stroke Does the patient have a stroke diagnosis?: No VTE Prior VTE?: No VTE Risk Level:: Medical - moderate - high VTE Device Contraindication: Treatment Not Indicated VTE Drug Contraindication: N/A - Med Ordered
[2022-04-20 17:22] LABS: Glucose, Whole Blood 105 mg/dL (60-115)
[2022-04-20] MEDS: allopurinoL 100 MG TABLET PO (17:56)
[2022-04-20] MEDS: oxyCODONE HCl Immed Release 5 MG TABLET PO (18:00)
[2022-04-20] MEDS: Throat Lozenge, Medicated LOZENGE 1 LOZENGE MUCOUS MEM ×2 (18:00→21:26)
--- NOTE | 2022-04-20 19:18 | ECG_ITS ---
Test Reason : chest pain Blood Pressure : / mmHG Vent. Rate : 070 BPM Atrial Rate : 070 BPM P-R Int : 164 ms QRS Dur : 098 ms QT Int : 446 ms P-R-T Axes : 060 095 074 degrees QTc Int : 481 ms Normal sinus rhythm Low voltage QRS Anterolateral infarct , age undetermined Abnormal ECG When compared to the previous EKG of No significant changes seen Referred By: Mesfin Junior Electronically Signed By:Tim Lan
[2022-04-20 20:20] LABS: Troponin-I High Sensitivity 58.5 ng/L (<3.5-35.0)
[2022-04-20 20:51] LABS: Glucose, Whole Blood 253 mg/dL (60-115)
[2022-04-20] MEDS: Doxazosin Mesylate 2 MG TABLET 4 MG PO (21:23)
[2022-04-20] MEDS: Apixaban 5 MG TABLET PO (21:23)
[2022-04-20] MEDS: guaiFENesin 100 MG/5 ML LIQUID 15 ML PO (21:26)
[2022-04-21 04:00] VITALS: BP 160/84; PULSE 70; RESP 18; TEMP 36.9; O2SAT 94
[2022-04-21] MEDS: Omeprazole 20 MG CAPSULE.DR PO (06:09)
[2022-04-21 07:11] LABS: Glucose, Whole Blood 179 mg/dL (60-115)
[2022-04-21 07:48] VITALS: BP 180/79; PULSE 77; RESP 16; TEMP 36.5; O2SAT 92
[2022-04-21] MEDS: guaiFENesin 100 MG/5 ML LIQUID 15 ML PO ×2 (07:53→16:53)
[2022-04-21] MEDS: oxyCODONE HCl Immed Release 5 MG TABLET PO (07:54)
[2022-04-21] MEDS: Insulin Lispro 100 UNIT/ML 3 ML VIAL SUBCUT ×3 (07:54→16:53)
[2022-04-21] MEDS: Furosemide 40 MG TABLET 80 MG PO (07:55)
[2022-04-21] MEDS: Atorvastatin Calcium 40 MG TABLET PO (07:55)
[2022-04-21] MEDS: Sevelamer Carbonate Tablet 800 MG TABLET 1600 MG PO ×3 (07:55→16:54)
[2022-04-21] MEDS: Pregabalin 75 MG CAPSULE PO (07:55)
[2022-04-21] MEDS: Sennosides/Docusate Sodium TABLET 1 TAB PO (07:55)
[2022-04-21] MEDS: Aspirin Enteric Coated 81 MG TABLET.DR PO (07:55)
[2022-04-21] MEDS: hydrALAZINE HCl 25 MG TABLET PO ×2 (07:55→16:54)
[2022-04-21] MEDS: carvediloL 3.125 MG TABLET PO (07:56)
[2022-04-21] MEDS: Apixaban 5 MG TABLET PO (07:56)
[2022-04-21] MEDS: Fluticasone/Vilanterol 100/25 BLST.W.DEV 1 PUFF INHALE ×2 (08:10→08:12)
[2022-04-21 08:12] VITALS: PULSE 75; RESP 18; O2SAT 94
[2022-04-21 09:15] LABS: Anion Gap 22 (12-20); Blood Urea Nitrogen 60 mg/dL (9-16); Calcium 7.9 mg/dL (8.4-10.2); Carbon Dioxide 20 mmol/L (22-29); Chloride 103 mmol/L (96-108); Creatinine Clr Calc Pharmacy 6.5; Estimated Glomerular Filt Rate 5; Glucose Random 159 mg/dL (60-115); Potassium 5.3 mmol/L (3.3-5.1); Sodium 140 mmol/L (135-145)
--- NOTE | 2022-04-21 11:08 | PM.PNNEP ---
Subjective Subjective Date of Service: 04/21/22 Interval history: seen and examined d/w medical attending had HD yesterday Physical Exam Vital Signs: Vital Signs: Last Vital Signs Temp 97.7 F 04/21/22 07:48 Pulse 75 04/21/22 08:12 Resp 18 04/21/22 08:12 BP 180/79 H 04/21/22 07:48 Pulse Ox 92 04/21/22 07:48 O2 Del Method 04/21/22 07:48 O2 Flow Rate 2 04/20/22 11:15 BMI result Body Mass Index 33.4 Const: General: no acute distress, alert and awake HEENT: Head: Yes normocephalic and Yes atraumatic Neck: Neck: Yes supple Resp: Auscultation: diminished lung sounds Cardio: Heart sounds: S1 normal heart sound present and S2 normal heart sound present GI: Palpation (GI): Soft to palpation and nontender Extrem: General: Yes edema Objective Data Labs 04/20/22 05:59 04/21/22 08:22 Labs: Laboratory Results - last 24 hr 04/20/22 04/20/22 04/20/22 11:20 17:18 19:43 Sodium Potassium Chloride Carbon Dioxide Anion Gap BUN Creatinine Estim Creat Clear Calc Estimated GFR POC Glucose 152 H 105 Random Glucose Calcium Troponin I High Sens 58.5 H 04/20/22 04/21/22 04/21/22 20:48 07:07 08:22 Sodium 140 Potassium 5.3 H Chloride 103 Carbon Dioxide 20 L Anion Gap 22 H BUN 60 H Creatinine 11.20 H* Estim Creat Clear Calc 6.5 Estimated GFR 5 POC Glucose 253 H 179 H Random Glucose 159 H Calcium 7.9 L D Troponin I High Sens Procedures Date of Service Date of Service: 04/21/22 Assessment & Plan Assessment and plan (1) ESRD (end stage renal disease): Status: Acute (2) Hyperkalemia: Status: Acute (3) Fluid overload: Status: Acute (4) Anemia: Status: Acute Plan s/p HD yesterday usually has HD -W- at [address] dialysis non adherence REC sodium zirconium 5 g HD today x 2 hours optimize volume status improve adherence no need for NAYE (Hb > 11) phosphate binders renal diet Time Spent With Patient Time: Total time managing care of this patient today ____ minutes. Progress Note: Quality Stroke Does the patient have a stroke diagnosis?: No
[2022-04-21] MEDS: Sodium Zirconium Cyclosilicate 5 GM POWD.PACK PO (11:27)
[2022-04-21 11:30] VITALS: BP 189/95; PULSE 75; RESP 14; TEMP 36.4; O2SAT 92
[2022-04-21 11:57] LABS: Glucose, Whole Blood 185 mg/dL (60-115)
--- NOTE | 2022-04-21 14:41 | MHC.CM.PN ---
Addendum entered by Elsy Jones 04/21/22 15:18: IMM DELIVERED. Original Note: PER MD ROUNDS, PT MAY DC TODAY AFTER HD. MESSAGE LEFT FOR SON TO UPDATE AND PER PT, SON WILL TRANSPORT HOME ON DC. CM CONFIRMED HC SERVICES BY DONTRELL DACOSTA ([facility]) AND UPDATED ON POSSIBLE DC. [facility]ODY CONFIRMS PT HAS 7 AM HD SERVICES -- AND WAS UPDATED THAT PT MAY DC TODAY. PER PT, SON BRINGS HIM TO HD. CM CONTINUES TO FOLLOW
--- NOTE | 2022-04-21 15:40 | P.PNIM_ITS ---
Subjective Subjective Date of Service: 04/21/22 Interval History: No acute complaints this morning, resting comfortably , noted to have elevated blood pressures, denies headache, dizziness no lightheadedness, no nausea no vomiting, no abdominal pain tolerating diet is scheduled for repeat hemodialysis this afternoon for 2 hours, events from last night noted patient complained of chest pain ,EKG showed no acute ischemia, repeat troponin elevated and flat. Review of Systems Review of Systems: Yes all other systems are reviewed and are negative Physical Exam Vital Signs: Vital Signs: Last Vital Signs Temp 97.5 F 04/21/22 11:30 Pulse 75 04/21/22 11:30 Resp 14 04/21/22 11:30 BP 189/95 H 04/21/22 11:30 Pulse Ox 92 04/21/22 11:30 O2 Del Method 04/21/22 11:30 O2 Flow Rate 2 04/20/22 11:15 BMI result Body Mass Index 33.4 Const: Other: General resting comfortably in no acute distress.? Periorbital edema improved Neck? supple no JVD. CVS? regular rate rhythm, Respiratory lungs clear to auscultation, no respiratory distress, no wheeze Gastrointestinal abdomen soft, nontender, bowel sounds audible, no guarding , no rigidity. Extremities no edema. Neuro nonfocal Skin no rash Psych appropriate affect Objective Data Active Medications Acetaminophen (Acetaminophen 325 Mg Tablet) 650 mg PO Q6H PRN PRN Reason: Pain, Mild (Pain Scale 1-3) Last Admin: 04/20/22 05:29 Dose: 650 mg Documented By: DAVINA Albuterol Sulfate (Albuterol Sulfate 90 Mcg 8 Gm Inhaler) 2 puff INHALE Q4H PRN PRN Reason: Shortness Of Breath Albuterol/Ipratropium (Albuterol/Iprat 2.5/0.5mg 3 Ml Ampul.Neb) 3 ml INHALE Q4H PRN PRN Reason: Wheezing Last Admin: 04/19/22 23:39 Dose: 3 ml Documented By: HEATHER Allopurinol (Allopurinol 100 Mg Tablet) 100 mg PO MOWEFR@1600 [facility] Last Admin: 04/20/22 17:56 Dose: 100 mg Documented By: LOBO Apixaban (Apixaban 5 Mg Tablet) 5 mg PO BID [facility] Last Admin: 04/21/22 07:56 Dose: 5 mg Documented By: JAYCEE Aspirin (Aspirin Enteric Coated 81 Mg Tablet.Dr) 81 mg PO DAILY [facility] Last Admin: 04/21/22 07:55 Dose: 81 mg Documented By: JAYCEE Atorvastatin Calcium (Atorvastatin Calcium 40 Mg Tablet) 40 mg PO DAILY [facility] Last Admin: 04/21/22 07:55 Dose: 40 mg Documented By: JAYCEE Benzocaine (Throat Lozenge, Medicated Lozenge) 1 lozenge MUCOUS MEM Q2H PRN PRN Reason: Sore Throat Last Admin: 04/20/22 21:26 Dose: 1 lozenge Documented By: LOBO Carvedilol (Carvedilol 3.125 Mg Tablet) 3.125 mg PO BID [facility]; Protocol Last Admin: 04/21/22 07:56 Dose: 3.125 mg Documented By: JAYCEE Dextrose (Dextrose 50 % 25 Gm/50 Ml Syringe) 25 gm IVPUSH Q15M PRN; Protocol PRN Reason: per Hypoglycemia Standing Ord. Docusate Sodium (Docusate Sodium 100 Mg Capsule) 100 mg PO DAILY PRN PRN Reason: Constipation Doxazosin Mesylate (Doxazosin Mesylate 2 Mg Tablet) 4 mg PO BEDTIME [facility]; Protocol Last Admin: 04/20/22 21:23 Dose: 4 mg Documented By: LOBO Fluticasone/Vilanterol (Fluticasone/Vilanterol 100/25 Blst.W.Dev) 1 puff INHALE RDAILY [facility] Last Admin: 04/21/22 08:10 Dose: 1 puff Documented By: DAVIN Furosemide (Furosemide 40 Mg Tablet) 80 mg PO DAILY [facility]; Protocol Last Admin: 04/21/22 07:55 Dose: 80 mg Documented By: JAYCEE Glucose (Glucose Gel 15 Gm Gel..Gram.) 15 gm PO Q15M PRN; Protocol PRN Reason: per Hypoglycemia Standing Ord. Guaifenesin (Guaifenesin 100 Mg/5 Ml Liquid) 15 ml PO TID [facility] Last Admin: 04/21/22 07:53 Dose: 15 ml Documented By: JAYCEE Hydralazine HCl (Hydralazine Hcl 25 Mg Tablet) 25 mg PO TID [facility]; Protocol Last Admin: 04/21/22 07:55 Dose: 25 mg Documented By: JAYCEE Insulin Human Lispro (Insulin Lispro 100 Unit/Ml 3 Ml Vial) 0 unit SUBCUT QIDAC [facility]; Protocol Last Admin: 04/21/22 11:58 Dose: 2 unit Documented By: JAYCEE Omeprazole (Omeprazole 20 Mg Capsule.) 20 mg PO DAILY@0630 [facility] Last Admin: 04/21/22 06:09 Dose: 20 mg Documented By: DAVINA Ondansetron HCl (Ondansetron Hcl 4 Mg/2 Ml Vial) 4 mg IVPUSH Q8H PRN PRN Reason: Nausea and Vomiting Oxycodone HCl (Oxycodone Hcl Immed Release 5 Mg Tablet) 5 mg PO Q8H PRN PRN Reason: Pain, Moderate (Pain Scale 4-6 Last Admin: 04/21/22 07:54 Dose: 5 mg Documented By: JAYCEE Pharmacy Consult (Consult Rx Perform Med Rec) 1 each MISCELLANE ONCE PRN PRN Reason: Consult order Polyethylene Glycol (Polyethylene Glycol 3350 17 Gm Powd.Pack) 17 gm PO DAILY PRN PRN Reason: Constipation Pregabalin (Pregabalin 75 Mg Capsule) 75 mg PO DAILY [facility] Last Admin: 04/21/22 07:55 Dose: 75 mg Documented By: JAYCEE Senna/Docusate Sodium (Sennosides/Docusate Sodium Tablet) 1 tab PO BID [facility] Last Admin: 04/21/22 07:55 Dose: 1 tab Documented By: JAYCEE Sevelamer Carbonate (Sevelamer Carbonate Tablet 800 Mg Tablet) 1,600 mg PO TIDWM [facility] Last Admin: 04/21/22 11:59 Dose: 1,600 mg Documented By: JAYCEE Labs 04/20/22 05:59 04/21/22 08:22 Labs: Laboratory Results - last 24 hr 04/20/22 04/20/22 04/20/22 17:18 19:43 20:48 Anion Gap Estim Creat Clear Calc Estimated GFR POC Glucose 105 253 H Random Glucose Calcium Troponin I High Sens 58.5 H 04/21/22 04/21/22 04/21/22 07:07 08:22 11:28 Anion Gap 22 H Estim Creat Clear Calc 6.5 Estimated GFR 5 POC Glucose 179 H 185 H Random Glucose 159 H Calcium 7.9 L D Troponin I High Sens Assessment and Plan (1) Fluid overload: Status: Acute (2) Hyperkalemia: Status: Acute Plan 66 year old male with ROBERT noncompliant with CPAP, insulin dependent type 2 diabetes, dyslipidemia, ESRD on dialysis MWF with [facility], htn, hx occlusive thrombus on eliquis admitted for ESRD with anasarca and pulmonary edema. #ESRD on dialysis -tolerated only 2 hours of hemodialysis yesterday due to generalized discomfort and cramping Will undergo repeat hemodialysis for 2 hours today -AV fistula LUE. Hemodialysis MWF -continue renal diet, seen by Nephrology # fluid overload/ Anasarca and pulmonary edema- due to noncompliance with dial ysis - continue Lasix, makes urine - renal recommend 2 more hours of hemodialysis today # hypertension with elevated blood pressures continue all home medications and if BP remains elevated post hemodialysis today will increase dose of hydralazine to 50 mg t.i.d. #Elevated trops- had chest discomfort last night EKG with no ischemia troponins trending down elevated tropes likely due to kidney disease #Elevated BNP likely due to poor renal function, chest x-ray with fluid overload , shortness of breath improved with hemodialysis #Hyperkalemia- r/t ESRD -K 5.3 treated with Lokelma will undergo repeat hemodialysis today, follow BMP, no acute EKG changes -Hx occlusive thombus right IJ -continue eliquis DVT prophylaxis-on Eliquis Full code Patient will require continued inpatient hospitalization for repeat hemodialysis due to generalized anasarca. Patient lives at home with son ambulates with no difficulty can be discharged home if remains stable in next 24 hours. Time Spent With Patient Time: Total time managing care of this patient today ____ minutes. Quality Stroke Does the patient have a stroke diagnosis?: No VTE Prior VTE?: No VTE Risk Level:: Medical - moderate - high VTE Device Contraindication: Treatment Not Indicated VTE Drug Contraindication: N/A - Med Ordered
[2022-04-21 16:00] VITALS: BP 161/75; PULSE 68; RESP 19; TEMP 37.1; O2SAT 95
--- NOTE | 2022-04-21 16:36 | PM.DS ---
DS: Providers Provider Date of Service: 04/21/22 Date of admission: 04/19/22 16:13 Primary care physician: Jade Lewis MD Consults: 04/19/22 16:40 Consult to Nephrology Routine Consulting Provider: Kole Escobedo Reason for consultation: ESRD on dialysis Has provider been notified: Yes DS: Diagnosis Discharge Diagnosis (1) Fluid overload: Status: Acute (2) Hyperkalemia: Status: Acute DS: Summary Hospital Course Hospital Course: Date of Service: 04/19/22 Attending physician on admission: Lily Candelario Chief Complaint: anasarca 66 year old male with ROBERT noncompliant with CPAP, insulin dependent type 2 diabetes, dyslipidemia, ESRD on dialysis MWF with [facility], htn, hx occlusive thrombus on eliquis presented to the ED earlier this morning for evaluation of anasarca, orthopnea, diffuse myalgias and weakness.? The patient has an AV fistula in the left arm and has been unable to tolerate more than 1-2 hours of his dialysis due to diffuse cramping though is compliant with attending dialysis appointments with last visit yesterday.? He states the symptoms have been going on for about 2 weeks.? On arrival, patient hypertensive to 172/77, vitals otherwise stable.? No leukocytosis.? Microcytic anemia with H/H 12.8/41.2%, MCV 72.4.? Platelets 106.? Creatinine 12.51, BUN 67.? Sodium 146, potassium 5.9, chloride 108, CO2 21, anion gap 23.? AST 24, ALT 69, alkaline phosphatase 150, initial troponin 76.3, repeat pending.? BNP 3238.? Negative for COVID-19, influenza.? CXR showing cardiomegaly and mild pulmonary vascular congestion with trace right pleural effusions.? Patient states he only produces minimal urine.? ED discussed case with Dr. Escobedo recommending admission for ESRD and anasarca. Hospital course 66 year old male with ROBERT noncompliant with CPAP, insulin dependent type 2 diabetes, dyslipidemia, ESRD on dialysis MWF with [facility], htn, hx occlusive thrombus on eliquis admitted for ESRD with anasarca and pulmonary edema. #ESRD on dialysis, patient received hemodialysis for 2 hours x2 days since unable to tolerate full hemodialysis, patient seen by Nephrology and was recommended full hemodialysis, recommend to follow renal and low-salt diet Recommend to continue hemodialysis Monday and Monday and to have close outpatient follow-up with Nephrology, fluid overload resolved, patient blood pressure is stable prior to discharge with no shortness of breath, in regard to hyperkalemia patient received Lokelma, EKG showed no acute changes, patient also noted to have elevated troponin that remains flat and were likely related to kidney disease # in regard to hypertension patient noted to have few elevated blood pressures and is on multiple blood pressure medications recommended compliance with blood pressure medication and close follow-up with primary care physician and Nephrology if noted to have persistent elevation in BP can increase dose of hydralazine to 50 t.i.d. -Hx occlusive thombus right IJ -continue eliquis Time Spent with Patient Time attestation: Total time managing care of this patient today ____ minutes. Discharge coordination time: Greater than 30 minutes Quality: Safe Use of Opioids Does Pt have an Active Cancer Diagnosis on the Problem List?: No Quality: Stroke Does the patient have a stroke diagnosis?: No Physical Exam Vital Signs: Vital Signs: Last Vital Signs Temp 97.5 F 04/21/22 11:30 Pulse 75 04/21/22 11:30 Resp 14 04/21/22 11:30 BP 189/95 H 04/21/22 11:30 Pulse Ox 92 04/21/22 11:30 O2 Del Method 04/21/22 11:30 O2 Flow Rate 2 04/20/22 11:15 BMI result Body Mass Index 33.4 Const: Other: General resting comfortably in no acute distress.? Periorbital edema improved Neck? supple no JVD. CVS? regular rate rhythm, Respiratory lungs clear to auscultation, no respiratory distress, no wheeze Gastrointestinal abdomen soft, nontender, bowel sounds audible, no guarding , no rigidity. Extremities no edema. Neuro nonfocal Skin no rash Psych appropriate affect DS: Data Data Completed and Pending Labs on day of discharge: Laboratory Results - last 24 hr 04/20/22 04/20/22 04/20/22 17:18 19:43 20:48 Sodium Potassium Chloride Carbon Dioxide Anion Gap BUN Creatinine Estim Creat Clear Calc Estimated GFR POC Glucose 105 253 H Random Glucose Calcium Troponin I High Sens 58.5 H 04/21/22 04/21/22 04/21/22 07:07 08:22 11:28 Sodium 140 Potassium 5.3 H Chloride 103 Carbon Dioxide 20 L Anion Gap 22 H BUN 60 H Creatinine 11.20 H* Estim Creat Clear Calc 6.5 Estimated GFR 5 POC Glucose 179 H 185 H Random Glucose 159 H Calcium 7.9 L D Troponin I High Sens Discharge Plan Discharge Anticipated Discharge Date/Time: 04/21/22 16:34 Patient Disposition: Home Health Service Discharge Diagnosis: Generalized anasarca Referrals: [facility] [Other] - 1 Week (HOME WITH [facility]) Jade Lewis MD [Primary Care Provider] - 1 Week Discharge Medications: Continued atorvastatin 40 mg tablet 40 mg PO DAILY fluticasone propion-salmeterol 250-50 mcg/dose blister with device 1 inh INHALATION BID ipratropium-albuterol 0.5 mg-3 mg(2.5 mg base)/3 mL solution for nebulization 3 ml INHALATION Q4H PRN (Reason: Wheezing) sennosides-docusate sodium [Senna-Time S] 8.6-50 mg tablet 1 tab PO BID allopurinol 100 mg tablet 100 mg PO MOWEFR@1600 Rx Instructions: GIVE AFTER DIALYSIS aspirin 81 mg tablet,delayed release (DR/EC) 81 mg PO DAILY guaifenesin [Mel-Tussin] 100 mg/5 mL liquid 300 mg PO TID carvedilol 3.125 mg tablet 3.125 mg PO BID furosemide 80 mg tablet 80 mg PO DAILY omeprazole 20 mg capsule,delayed release(DR/EC) 20 mg PO DAILY doxazosin 4 mg tablet 4 mg PO BEDTIME polyethylene glycol 3350 17 gram/dose powder 17 g PO DAILY PRN (Reason: Constipation) albuterol sulfate 90 mcg/actuation HFA aerosol inhaler 2 puff INHALATION Q4H PRN (Reason: Shortness Of Breath) insulin lispro [Humalog KwikPen Insulin] 100 unit/mL insulin pen 4 unit SUBCUT BIDAC pregabalin 75 mg capsule 75 mg PO DAILY sevelamer carbonate 800 mg tablet 1,600 mg PO TIDWM Eliquis 5 mg tablet 5 mg PO BID No Action hydralazine 25 mg tablet 25 mg PO TID Discharge Orders: Discharge Order (Routine); Ordered 04/21/22 Ordered By: Lily Candelario Diet: Advance to usual diet Activity on Discharge: As tolerated Stand Alone Forms: Patient Portal Discharge page Care Plan Goals: Continue outpatient hemodialysis Monday and Monday, follow low potassium, low salt diet Health Concerns: Continue all home medications as prescribed Plan of Treatment: Follow-up with Nephrology for continued hemodialysis Follow-up with primary care physician call for appointment. Assessment: As above
[2022-04-21 16:43] LABS: Glucose, Whole Blood 187 mg/dL (60-115)
== END 2022-04-21 18:25 | disposition home health service (06) | DRG 640 ==
LOC: HO.ED 14:52 → HO.EDOVER 16:30 → HO.IMC 04-20 01:36
PROVIDERS: Nurse Practitioner Family; Student in an Organized Health Care Education/Training Program; Admitting Provider Physician Assistant; Emergency Provider Student in an Organized Health Care Education/Training Program; PCP Internal Medicine; Visit Provider Hospitalist
DX: E87.70 Fluid overload, unspecified (principal); N18.6 End stage renal disease; I12.0 Hypertensive chronic kidney disease with stage 5 chronic kidney disease or end stage renal disease; E11.22 Type 2 diabetes mellitus with diabetic chronic kidney disease; E78.5 Hyperlipidemia, unspecified; G47.33 Obstructive sleep apnea (adult) (pediatric); Z20.822 Contact with and (suspected) exposure to COVID-19; E87.6 Hypokalemia; Z99.2 Dependence on renal dialysis; Z87.891 Personal history of nicotine dependence; Z86.718 Personal history of other venous thrombosis and embolism; Z91.15 Patient's noncompliance with renal dialysis; Z79.4 Long term (current) use of insulin; Z79.01 Long term (current) use of anticoagulants; Z79.82 Long term (current) use of aspirin; Z79.899 Other long term (current) drug therapy
CPT/HCPCS: 36415; 71046; 80048; 80053; 82947; 83690; 83735; 83880; 84484; 85025; 85610; 87502; 87635; 90935; 90999; 93005; 94640; 99222; 99285

== ENCOUNTER 2022-06-18 23:31 | Emergency (ER) | payer MEDICARE, MEDICAID, SELFPAY ==
--- NOTE | ~2022-06-18 | CT_ITS ---
EXAMINATION: CT ABDOMEN AND PELVIS WITHOUT CONTRAST CLINICAL INFORMATION: Hematuria. Pain. COMPARISON: No prior CT. Renal ultrasound 03/20/2014 TECHNIQUE: Multidetector volumetric imaging was performed from the superior aspect of the liver through the pubic symphysis. Sagittal and coronal reformatted images were obtained on the technologist's workstation. This CT examination was performed using dose optimization techniques as appropriate, variously including the following: *Automated exposure control *Adjustment of mA and/or kV according to patient size (this includes techniques or standardized protocols for targeted exams where dose is matched to indication/reason for exam; i.e. extremities or head) *Use of iterative reconstruction technique DLP: 571 mGy-cm FINDINGS: LUNG BASES: Small right pleural effusion. Enlarged heart. Small pericardial effusion. Coronary artery calcifications. LIVER, GALLBLADDER, AND BILIARY TREE: The liver is normal in size, shape, and attenuation. No focal hepatic lesion or biliary ductal dilatation is present. Contracted gallbladder with stone noted. Mild stranding in the fat along the gallbladder. PANCREAS: Unremarkable. SPLEEN: Unremarkable. ADRENAL GLANDS: Unremarkable. KIDNEYS AND URETERS: The kidneys are normal in size, shape, and attenuation. No hydronephrosis, hydroureter, or calculi seen. Symmetric bilateral perinephric stranding. Vascular calcifications throughout both kidneys. BLADDER: Partially distended with circumferential wall thickening. GASTROINTESTINAL TRACT: The stomach is unremarkable. Normal caliber small bowel. No obstruction. Normal appendix. Scattered colonic diverticulosis without diverticulitis. No free air or free fluid. ABDOMINAL WALL: No significant hernia is appreciated. LYMPH NODES: Normal. VASCULAR: Normal caliber aorta with mild atherosclerotic calcification. PELVIC VISCERA: The prostate and seminal vesicles are unremarkable. OSSEOUS STRUCTURES: No acute or suspicious osseous abnormality. Mild degenerative change throughout the spine and at both hips. CT/CT abdomen pelvis wo IV con IMPRESSION: 1. No hydronephrosis or nephrolithiasis. 2. Circumferential bladder wall thickening. Correlate for cystitis. 3. Contracted gallbladder with gallstones. Mild stranding in the fat along the gallbladder. If there is concern for cholecystitis, consider ultrasound evaluation. 4. Small right pleural effusion. Small pericardial effusion. Fleischner guidelines were followed.
[2022-06-19 00:07] VITALS: BP 178/71; PULSE 67; RESP 16; TEMP 36.7; O2SAT 98; BMI 31.7
[2022-06-19 00:50] LABS: PLT ABN DIST 1
[2022-06-19 00:52] LABS: Hematocrit 36.7 % (42.0-52.0); Hemoglobin 11.2 g/dl (14.0-18.0); Mean Corpuscular HGB Conc 30.5 g/dl (31.0-36.0); Mean Corpuscular Hemoglobin 22.6 pg (27.0-33.0); Platelet Count 122 X10*3/uL (160-400); Red Blood Count 4.96 X10*6/uL (4.60-5.80); Red Cell Distribution Width 19.5 % (11.0-16.0); White Blood Count 7.9 X10*3/uL (4.8-10.8)
[2022-06-19 01:03] LABS: Appearance Urine Turbid; Color Urine RED; Glucose Urine UA >=1000 mg/dL (Negative); Leukocyte Esterase Urine Negative (Negative); Nitrite Urine Positive (Negative); Specific Gravity - Urine 1.015 (1.005-1.025); UMIC TRIGGER UACC YES; Urine Blood Large (3+) (Negative); Urine Ketones Trace mg/dL (Negative); Urine Protein 300 (3+) mg/dL (Neg-Trace)
[2022-06-19 01:05] LABS: Bacteria Urine None Seen (None Seen); Hyaline Casts Urine 0-2 /LPF (0-2); RBC Urine >20 /HPF (0-2); Squamous Epithelial Cell Urine 0-2 /HPF (0-2); UACC Culture Trigger YES; WBC Urine 0-5 /HPF (0-5)
[2022-06-19 01:17] LABS: Alanine Aminotransferase 22 U/L (0-40); Albumin Level 3.7 g/dL (3.5-5.0); Alkaline Phosphatase 128 U/L (39-117); Anion Gap 13 (12-20); Aspartate Amino Transferase 15 U/L (5-37); Bilirubin Total 0.8 mg/dL (0.0-1.0); Blood Urea Nitrogen 49 mg/dL (9-16); Calcium 8.3 mg/dL (8.4-10.2); Carbon Dioxide 28 mmol/L (22-29); Chloride 106 mmol/L (96-108); Creatinine Clr Calc Pharmacy 7.6; Estimated Glomerular Filt Rate 6; Glucose Random 291 mg/dL (60-115); Potassium 5.3 mmol/L (3.3-5.1); Sodium 142 mmol/L (135-145)
--- NOTE | 2022-06-19 01:35 | ED_ITS ---
HPI - General Adult General Chief complaint: General Medical Stated complaint: Urine in blood, missed dialysis, high bp Time Seen by Provider: 06/19/22 01:17 Source: patient and family Mode of arrival: ambulatory Limitations: language barrier (Ghanaian speaking only, avionics manager used) History of Present Illness HPI narrative: 67-year-old male history of end-stage renal disease dialyzed on Monday, Monday and Monday who presents emergency department for evaluation of hematuria. The hematuria started last night. The patient states that he noticed blood in his urine with some small blood clots. He denied frequency, urgency or dysuria. The patient is on Eliquis for occlusive thrombus of the right IJ which the family states he was diagnosed approximately 6 months prior. He denied fever, chills, nausea, vomiting. He has not noticed any dark tarry stools or black stools. Related Data Home Medications Medication Instructions Recorded Confirmed albuterol sulfate 90 mcg/actuation 2 puff inhalation Q4H PRN 04/19/22 04/19/22 aerosol inhaler Shortness Of Breath allopurinol 100 mg tablet 100 mg PO MOWEFR@1600 04/19/22 04/19/22 apixaban 5 mg tablet (Eliquis) 5 mg PO BID 04/19/22 04/19/22 aspirin 81 mg tablet,delayed 81 mg PO DAILY 04/19/22 04/19/22 release atorvastatin 40 mg tablet 40 mg PO DAILY 04/19/22 04/19/22 carvedilol 3.125 mg tablet 3.125 mg PO BID 04/19/22 04/19/22 doxazosin 4 mg tablet 4 mg PO BEDTIME 04/19/22 04/19/22 fluticasone 250 mcg-salmeterol 50 1 inh inhalation BID 04/19/22 04/19/22 mcg/dose blistr powdr for inhalation furosemide 80 mg tablet 80 mg PO DAILY 04/19/22 04/19/22 guaifenesin 100 mg/5 mL oral 300 mg PO TID COUGH 04/19/22 04/19/22 liquid (Mel-Tussin) hydralazine 25 mg tablet 25 mg PO TID 04/19/22 04/19/22 insulin lispro 100 unit/mL 4 unit subcut BIDAC 04/19/22 04/19/22 subcutaneous pen (Humalog KwikPen (U-100) Insulin) ipratropium 0.5 mg-albuterol 3 mg 3 ml inhalation Q4H PRN Wheezing 04/19/22 04/19/22 (2.5 mg base)/3 mL nebulization soln omeprazole 20 mg capsule,delayed 20 mg PO DAILY 04/19/22 04/19/22 release polyethylene glycol 3350 17 17 g PO DAILY PRN Constipation 04/19/22 04/19/22 gram/dose oral powder pregabalin 75 mg capsule 75 mg PO DAILY 04/19/22 04/19/22 sennosides 8.6 mg-docusate sodium 1 tab PO BID 04/19/22 04/19/22 50 mg tablet (Senna-Time S) sevelamer carbonate 800 mg tablet 1,600 mg PO TIDWM 04/19/22 04/19/22 Allergies Allergy/AdvReac Type Severity Reaction Status Date / Time No Known Allergies Allergy Verified 04/19/22 11:55 Review of Systems Review of Systems: Yes all other systems are reviewed and are negative [facility] Past Medical History Medical History A-V fistula Anemia Congestive heart disease Dialysis complication ESRD (end stage renal disease) ESRD on dialysis Falling Hyperlipidemia Hypertension Noncompliance with CPAP treatment Occlusive thrombus ROBERT (obstructive sleep apnea) Pulmonary edema Type 2 diabetes mellitus Social History Social History Household Members: Family Housing: House Alcohol intake: never Patient Tobacco Use Status: Former Tobacco user Smoked in Last 30 Days: No Use of substances other than those prescribed or required for medical reasons: No Advance Directives: No Advance Directives Information Provided: Yes service: No Physical Exam ED Vital Signs: Vital Signs - 24 hr 06/19/22 00:07 Temperature 98.1 F Pulse Rate 67 Respiratory Rate 16 Blood Pressure 178/71 H Pulse Oximetry 98 Oxygen Delivery Method Room Air BMI result Body Mass Index 31.7 Const General: cooperative and no acute distress Orientation/consciousness: oriented to person and oriented to place Limitations: no limitations HENMT Head: Yes normal to inspection, Yes normocephalic and Yes atraumatic Ears: external ears normal General nose exam: Normal external nose present Face and sinus: Yes normal facial exam Mouth: Normal oral and palatal mucosa present Throat: Yes posterior oropharynx normal Eyes General: appearance normal, both eyes and all related structures Pupils: Equal, round and reactive pupils present Neck Neck: Yes normal visual inspection, Yes no lymphadenopathy, Yes trachea midline and Yes supple Chest Chest palpation & inspection: normal inspection of the chest and normal palpation of entire chest wall Resp Effort & Inspection: normal respiratory effort and able to speak in complete sen tences Auscultation: clear to auscultation bilaterally Cardio Rate: regular rate Rhythm: regular rhythm Heart sounds: S1 normal heart sound present, S2 normal heart sound present and no murmurs GI Inspection: Yes normal to inspection Palpation (GI): Soft to palpation, nontender and no guarding Auscultation: normal bowel sounds Other: The patient's prostate was smooth, nontender General: Yes no CVA tenderness Back/Spine/Pelvis Back: no CVA tenderness Skin General skin exam: no rashes or lesions noted Neuro General: oriented to person and oriented to place Cranial nerves: Yes CN's II-XII intact bilaterally and Yes Equal, round and reactive pupils present Cognition (Neuro): normal cognition Motor exam (neuro): 5/5 motor strength present throughout Extrem General: Yes normal to inspection Psych Appearance: grossly normal Speech and movement: Normal speech and movement present Affect: normal affect Attitude: cooperative Thought process: Normal thought process present Thought content: Normal thought content present Medical Decision Making Medical Decision Making MDM Narrative: 67-year-old male with history of end-stage renal disease dialyzed on Monday, right IJ occlusive thrombus on Eliquis who presents emergency department for evaluation of hematuria which started last night. Patient noted blood in his urine with small blood clots but had no difficulty urinating, dysuria urgency. Patient's physical examination was unremarkable, his prostate was nontender. Patient had a CBC, CMP, urinalysis. 0318: My interpretation of the labs are as follows: Anemia with an H&H of 11.2 and 36.7, low MCV of 74, patient's anemia is more prominent than previously (12.4 and 40.2 from 04/20/2022) however, I do not think this is secondary to his hematuria. Glucose elevated 291. CT scan of the abdomen pelvis did reveal symmetric thickening of the bladder which is nonspecific but no other significant causes for hematuria. I did discuss these findings with the patient the patient's family, at this time I do not think the patient needs to be hospitalized any can follow-up as an outpatient for further evaluation. He is on Eliquis for an occlusive thrombus of the right IJ therefore do not think that the Eliquis can be stopped at this time. The patient will be referred to our covering urologist, Dr. Diaz for further evaluation. Differential Diagnosis Differential Diagnoses: The differential diagnosis associated with the presentation includes Differential diagnosis includes was not limited to kidney stone, prostatitis, urinary tract infection, bladder cancer, bleeding secondary to chronic anticoagulation with Eliquis Lab Data MDM Lab Attestation statement: I reviewed the patient's lab results. 06/19/22 00:43 06/19/22 00:43 Labs: Lab Results 06/19/22 06/19/22 06/19/22 Range/Units 00:43 00:43 00:52 WBC 7.9 (4.8-10.8) X10*3/uL RBC 4.96 (4.60-5.80) X10*6/uL Hgb 11.2 L (14.0-18.0) g/dl Hct 36.7 L (42.0-52.0) % MCV 74.0 L (80.0-98.0) fL MCH 22.6 L (27.0-33.0) pg MCHC 30.5 L (31.0-36.0) g/dl RDW 19.5 H (11.0-16.0) % Plt Count 122 L D (160-400) X10*3/uL MPV Not Reportable Absolute Nucleated RBC 0.000 (0.0-0.012) X10*3/uL Nucleated RBC % (auto) 0.0 (0.0-0.2) /100WBC Sodium 142 (135-145) mmol/L Potassium 5.3 H (3.3-5.1) mmol/L Chloride 106 (96-108) mmol/L Carbon Dioxide 28 (22-29) mmol/L Anion Gap 13 (12-20) BUN 49 H (9-16) mg/dL Creatinine 9.33 H* (0.5-1.4) mg/dL Estim Creat Clear Calc 7.6 Estimated GFR 6 Random Glucose 291 H (60-115) mg/dL Calcium 8.3 L (8.4-10.2) mg/dL Total Bilirubin 0.8 (0.0-1.0) mg/dL AST 15 (5-37) U/L ALT 22 (0-40) U/L Alkaline Phosphatase 128 H (39-117) U/L Total Protein 6.0 L (6.5-8.0) g/dL Albumin 3.7 (3.5-5.0) g/dL Urine Color RED Urine Appearance Turbid Urine pH 8.0 (5.0-9.0) Ur Specific [place] 1.015 (1.005-1.025) Urine Protein 300 (3+) H (Neg-Trace) mg/dL Urine Glucose (UA) >=1000 H (Negative) mg/dL Urine Ketones Trace (Negative) mg/dL Urine Blood Large (3+) H (Negative) Urine Nitrite Positive H (Negative) Ur Leukocyte Esterase Negative (Negative) Urine RBC >20 H (0-2) /HPF Urine WBC 0-5 (0-5) /HPF Ur Squamous Epith Cells 0-2 (0-2) /HPF Urine Bacteria None Seen (None Seen) Hyaline Casts 0-2 (0-2) /LPF Radiology Impression Discussion of test interpretation with radiology: I have reviewed the radiologist's reading. Radiologist Impression: CT abdomen pelvis wo IV con IMPRESSION: 1. No hydronephrosis or nephrolithiasis. 2. Circumferential bladder wall thickening. Correlate for cystitis. 3. Contracted gallbladder with gallstones. Mild stranding in the fat along the gallbladder. If there is concern for cholecystitis, consider ultrasound evaluation. 4. Small right pleural effusion. Small pericardial effusion. Fleischner guidelines were followed. Dictated By:David Shepard MDSigned By:<Electronically signed by David Shepard MD in [place]>06/19/22 0155 Discharge Plan Discharge Clinical Impression: Hematuria Patient Disposition: Home, Self-Care Instructions: Hematuria (ED) Additional Instructions: Your blood work revealed mild anemia, but this is probably related to your kidney disease and not related to peeing blood. Your electrolytes or normal except for slight elevation in potassium of 5.3. Your urinalysis was consistent with red blood cells but did not have a significant amount of white blood cells in you had no bacteria. This suggests that you do not have a urine infection is the cause of your bleeding. Your rectal exam revealed a nontender prostate therefore I do not think you have inflammation of the prostate (prostatitis) as the cause of your pain It is possible that the bleeding could be related to Eliquis however since you were starting on this medication for blood clots you should not stop this medication at this time. You need to follow-up with our on-call urologist Dr. Diaz for re-evaluation to determine the cause of your bleeding. Please return to the emergency department if your symptoms get worse or if you develop any symptoms that are concerning to you. Prescriptions: No Action atorvastatin 40 mg tablet 40 mg PO DAILY fluticasone propion-salmeterol 250-50 mcg/dose blister with device 1 inh INHALATION BID ipratropium-albuterol 0.5 mg-3 mg(2.5 mg base)/3 mL solution for nebulization 3 ml INHALATION Q4H PRN (Reason: Wheezing) sennosides-docusate sodium [Senna-Time S] 8.6-50 mg tablet 1 tab PO BID hydralazine 25 mg tablet 25 mg PO TID allopurinol 100 mg tablet 100 mg PO MOWEFR@1600 Rx Instructions: GIVE AFTER DIALYSIS aspirin 81 mg tablet,delayed release (DR/EC) 81 mg PO DAILY guaifenesin [Mel-Tussin] 100 mg/5 mL liquid 300 mg PO TID carvedilol 3.125 mg tablet 3.125 mg PO BID furosemide 80 mg tablet 80 mg PO DAILY omeprazole 20 mg capsule,delayed release(DR/EC) 20 mg PO DAILY doxazosin 4 mg tablet 4 mg PO BEDTIME polyethylene glycol 3350 17 gram/dose powder 17 g PO DAILY PRN (Reason: Constipation) albuterol sulfate 90 mcg/actuation HFA aerosol inhaler 2 puff INHALATION Q4H PRN (Reason: Shortness Of Breath) insulin lispro [Humalog KwikPen Insulin] 100 unit/mL insulin pen 4 unit SUBCUT BIDAC pregabalin 75 mg capsule 75 mg PO DAILY sevelamer carbonate 800 mg tablet 1,600 mg PO TIDWM Eliquis 5 mg tablet 5 mg PO BID Referrals: Jesus Diaz MD [Physician] - 1 week (Hematuria, on Eliquis, CT scan abdomen pelvis without IV contrast unremarkable, urinalysis positive for blood only, nontender prostate.)
--- NOTE | 2022-06-19 02:52 | PC.NURSE ---
Pt asleep at this time. Family is at the bedside. No new orders at this time.
[2022-06-19 03:32] LABS: Glucose, Whole Blood 277 mg/dL (60-115)
== END 2022-06-19 03:28 | disposition home or self-care (01) ==
PROVIDERS: Emergency Provider Emergency Medicine Emergency Medical Services; PCP Internal Medicine
DX: R31.9 Hematuria, unspecified (principal); E11.22 Type 2 diabetes mellitus with diabetic chronic kidney disease; I13.2 Hypertensive heart and chronic kidney disease with heart failure and with stage 5 chronic kidney disease, or end stage renal disease; I50.9 Heart failure, unspecified; R10.13 Epigastric pain; N18.6 End stage renal disease; Z79.4 Long term (current) use of insulin; Z79.899 Other long term (current) drug therapy; Z79.01 Long term (current) use of anticoagulants
CPT/HCPCS: 36415; 74176; 80053; 81001; 82947; 85027; 99284

== ENCOUNTER 2022-09-28 11:35 | Emergency (ER) | payer MEDICARE, MEDICAID, SELFPAY ==
[2022-09-28 11:38] VITALS: BP 152/53; PULSE 55; RESP 19; TEMP 36.6; O2SAT 98; BMI 30.9
--- NOTE | 2022-09-28 11:38 | ED.GENADULT ---
HPI - General Adult General Chief complaint: General Medical Stated complaint: shingles?, pain in ear Time Seen by Provider: 09/28/22 13:14 Source: patient and family Mode of arrival: wheelchair Limitations: language barrier History of Present Illness HPI narrative: 67 yo male with history of ESRD on HD,?occlusive thombus right IJ no longer on Eliquis, presents to the ER for evaluation of 2 days of bilateral ear pain and dizziness along with a rash on the top of his head and his back for the last 1 month. Has been having routine labs at HD and were good per family. Family reports hx of ear infections in the past that have required further treatment at ENT offices. Pt reports itchy rash to his scalp as well as upper back. Denies any pain associated with the rash. Denies fevers, chills, nausea, vomiting, diarrhea, chest pain or shortness of breath. No other complaints or concerns at this time. MD complaint: Ear pain Pain Consistency: constant Relieving factors: none Exacerbating factors: none Associated symptoms: denies other symptoms Treatments prior to arrival: none Related Data Home Medications Medication Instructions Recorded Confirmed albuterol sulfate 90 mcg/actuation 2 puff inhalation Q4H PRN 04/19/22 04/19/22 aerosol inhaler Shortness Of Breath allopurinol 100 mg tablet 100 mg PO MOWEFR@1600 04/19/22 04/19/22 apixaban 5 mg tablet (Eliquis) 5 mg PO BID 04/19/22 04/19/22 aspirin 81 mg tablet,delayed 81 mg PO DAILY 04/19/22 04/19/22 release atorvastatin 40 mg tablet 40 mg PO DAILY 04/19/22 04/19/22 carvedilol 3.125 mg tablet 3.125 mg PO BID 04/19/22 04/19/22 doxazosin 4 mg tablet 4 mg PO BEDTIME 04/19/22 04/19/22 fluticasone 250 mcg-salmeterol 50 1 inh inhalation BID 04/19/22 04/19/22 mcg/dose blistr powdr for inhalation furosemide 80 mg tablet 80 mg PO DAILY 04/19/22 04/19/22 guaifenesin 100 mg/5 mL oral 300 mg PO TID COUGH 04/19/22 04/19/22 liquid (Mel-Tussin) hydralazine 25 mg tablet 25 mg PO TID 04/19/22 04/19/22 insulin lispro 100 unit/mL 4 unit subcut BIDAC 04/19/22 04/19/22 subcutaneous pen (Humalog KwikPen (U-100) Insulin) ipratropium 0.5 mg-albuterol 3 mg 3 ml inhalation Q4H PRN Wheezing 04/19/22 04/19/22 (2.5 mg base)/3 mL nebulization soln omeprazole 20 mg capsule,delayed 20 mg PO DAILY 04/19/22 04/19/22 release polyethylene glycol 3350 17 17 g PO DAILY PRN Constipation 04/19/22 04/19/22 gram/dose oral powder pregabalin 75 mg capsule 75 mg PO DAILY 04/19/22 04/19/22 sennosides 8.6 mg-docusate sodium 1 tab PO BID 04/19/22 04/19/22 50 mg tablet (Senna-Time S) sevelamer carbonate 800 mg tablet 1,600 mg PO TIDWM 04/19/22 04/19/22 Previous Rx's Medication Instructions Recorded ketoconazole 2 % shampoo 1 appl topical 3XW #120 mL 09/28/22 ofloxacin 0.3 % ear drops 10 drp otic (ears) DAILY 7 days 09/28/22 #10 mL prednisone 20 mg tablet 40 mg PO DAILY 5 days #10 tabs 09/28/22 Allergies Allergy/AdvReac Type Severity Reaction Status Date / Time No Known Allergies Allergy Verified 09/28/22 11:38 Review of Systems Review of Systems: Yes all other systems are reviewed and are negative Constitutional: Constitutional: Reports as per [facility] Past Medical History Medical History A-V fistula Anemia Congestive heart disease Dialysis complication ESRD (end stage renal disease) ESRD on dialysis Falling Hyperlipidemia Hypertension Noncompliance with CPAP treatment Occlusive thrombus ROBERT (obstructive sleep apnea) Pulmonary edema Type 2 diabetes mellitus Social History Social History Household Members: Family Housing: House Alcohol intake: never Patient Tobacco Use Status: Former Tobacco user Advance Directives: Yes Advance Directives Information Provided: No Advance Directives on File: No service: No Physical Exam ED Vital Signs: Vital Signs - 24 hr 09/28/22 11:38 Temperature 98 F Pulse Rate 55 Respiratory Rate 19 Blood Pressure 152/53 H Pulse Oximetry 98 Oxygen Delivery Method Room Air BMI result Body Mass Index 30.9 Const General: cooperative, comfortable and no acute distress Orientation/consciousness: patient oriented x3 Limitations: no limitations HENMT Other: Bilateral auditory canals are erythematous and edematous. Unable to fully visualize TMs due to edema. L auditory canal more edematous than right. TTP with ear examination. No mastoid tenderness to palpation. Head: Yes normal to inspection, Yes normocephalic and Yes atraumatic Ears: hearing grossly normal bilaterally General nose exam: Normal external nose present Face and sinus: Yes normal facial exam Mouth: Normal oral and palatal mucosa present, oropharynx normal and moist mucous membranes Throat: Yes posterior oropharynx normal Eyes General: appearance normal, both eyes and all related structures Eyelids: Yes eyelids normal Conjunctivae: conjunctivae normal Sclerae: sclerae normal Pupils: Equal, round and reactive pupils present EOM: EOMs intact bilaterally Neck Neck: Yes normal visual inspection, Yes full ROM and Yes no lymphadenopathy Lymphatic: no lymphadenopathy noted Chest Chest palpation & inspection: normal inspection of the chest Resp Effort & Inspection: normal respiratory effort and able to speak in complete sentences Auscultation: clear to auscultation bilaterally, no crackles, no rales, no rhonchi and no wheezes Cardio Rate: regular rate Rhythm: regular rhythm Heart sounds: S1 normal heart sound present and S2 normal heart sound present GI Inspection: Yes normal to inspection Skin Other: Posterior occiput with scaling, circular plaque with mild surrounding erythema noted. No rash noted to upper back. No vessicles noted. Neuro General: patient oriented x3 and moves all extremities Cranial nerves: Yes Equal, round and reactive pupils present Extrem General: Yes normal to inspection Right upper extremity: normal to inspection Left upper extremity: normal to inspection Right lower extremity: normal to inspection Left lower extremity: normal to inspection Course Course Course Narrative: RME - 67 yo male with history of ESRD on HD,?occlusive thombus right IJ no longer on Eliquis, presents to the ER for evaluation of 2 days of bilateral ear pain and dizziness along with a rash on the top of his head and his back for the last 1 month. Has been having routine labs at HD and were good per family. Exam in triage c/w bilateral otitis externa, needs wick placed in the left. Plan: skin evaluation in [facility], wick and tx otitis externa Medical Decision Making Medical Decision Making MDM Narrative: 67 y/o M presenting to the ER with complaints of itchy rash x 1 month and BL ear pain x 2 days. Pt is nontoxic appearing with normal vital signs. Auditory canals are erythematous and edematous, unable to visualize TMs bilaterally due to edema. No mastoid tenderness to suggest mastoiditis. Wick placed in left ear and sent for antibiotic ear drops. Posterior occiput rash appears to be tinea capitus - given chronic illnesses will treat with topical antifungal. Also given course of prednisone to help with rash and with OE. Discussed reeturn precautions. Advised to f/u with ENT. Pt and son agree with course of treatment. Stable for d/c. Differential Diagnosis Differential Diagnoses: The differential diagnosis associated with the presentation includes Shingles - unlikely given 1 month without vesicles or pain, contact dermatitis, tinea capitus, cellulitis, OE, OM, mastoiditis - unlikely Discharge Plan Discharge Clinical Impression: Tinea capitis, Contact dermatitis, Otitis externa Patient Disposition: Home, Self-Care Additional Instructions: You have an ear infection in both ears, use ear drops in both ears. Please use antifungal shampoo as directed. Take prednisone as directed. This will help with your ear infection and rash. If any new or worsening symptoms occur including but not limited to shortness chest fevers or chills. Please return for re-evaluation. Please follow-up with your corporate securities research analyst. Stop putting Q-tips in her ears as this can make your condition worse. Prescriptions: New ketoconazole 2 % shampoo 1 appl topical 3XW Qty: 120 0RF ofloxacin 0.3 % drops 10 drp otic (ears) DAILY 7 Days Qty: 10 0RF prednisone 20 mg tablet 40 mg PO DAILY 5 Days Qty: 10 0RF No Action atorvastatin 40 mg tablet 40 mg PO DAILY fluticasone propion-salmeterol 250-50 mcg/dose blister with device 1 inh INHALATION BID ipratropium-albuterol 0.5 mg-3 mg(2.5 mg base)/3 mL solution for nebulization 3 ml INHALATION Q4H PRN (Reason: Wheezing) sennosides-docusate sodium [Senna-Time S] 8.6-50 mg tablet 1 tab PO BID hydralazine 25 mg tablet 25 mg PO TID allopurinol 100 mg tablet 100 mg PO MOWEFR@1600 Rx Instructions: GIVE AFTER DIALYSIS aspirin 81 mg tablet,delayed release (DR/EC) 81 mg PO DAILY guaifenesin [Mel-Tussin] 100 mg/5 mL liquid 300 mg PO TID carvedilol 3.125 mg tablet 3.125 mg PO BID furosemide 80 mg tablet 80 mg PO DAILY omeprazole 20 mg capsule,delayed release(DR/EC) 20 mg PO DAILY doxazosin 4 mg tablet 4 mg PO BEDTIME polyethylene glycol 3350 17 gram/dose powder 17 g PO DAILY PRN (Reason: Constipation) albuterol sulfate 90 mcg/actuation HFA aerosol inhaler 2 puff INHALATION Q4H PRN (Reason: Shortness Of Breath) insulin lispro [Humalog KwikPen Insulin] 100 unit/mL insulin pen 4 unit SUBCUT BIDAC pregabalin 75 mg capsule 75 mg PO DAILY sevelamer carbonate 800 mg tablet 1,600 mg PO TIDWM Eliquis 5 mg tablet 5 mg PO BID Interventions: ED Discharge Assessment Last Done: 09/28/22 15:25 Discharge Date/Time: 09/28/22 15:26
== END 2022-09-28 15:26 | disposition home or self-care (01) ==
PROVIDERS: Emergency Provider Emergency Medicine; PCP Internal Medicine
DX: B35.0 Tinea barbae and tinea capitis (principal); H66.93 Otitis media, unspecified, bilateral; L25.9 Unspecified contact dermatitis, unspecified cause; E11.22 Type 2 diabetes mellitus with diabetic chronic kidney disease; I13.2 Hypertensive heart and chronic kidney disease with heart failure and with stage 5 chronic kidney disease, or end stage renal disease; I50.9 Heart failure, unspecified; N18.6 End stage renal disease; Z87.891 Personal history of nicotine dependence; Z79.01 Long term (current) use of anticoagulants; Z79.4 Long term (current) use of insulin; Z79.899 Other long term (current) drug therapy
CPT/HCPCS: 99282; 99283

== ENCOUNTER 2023-04-10 11:18 | Inpatient (IN) | payer MEDICARE, MEDICAID, SELFPAY ==
--- NOTE | ~2023-04-10 | CT_ITS ---
EXAMINATION: CT SOFT TISSUE NECK WITH CONTRAST CLINICAL INFORMATION: Right-sided neck mass. COMPARISON: None available. TECHNIQUE: Multidetector helical imaging was performed in the axial plane following the administration of 60 mL of Omnipaque 350 intravenous contrast. Multiple axial reformats and coronal/sagittal reconstructions were created the technologist workstation for review. This CT examination was performed using dose optimization techniques as appropriate, variously including the following: *Automated exposure control. *Adjustment of mA and/or kV according to patient size (this includes techniques or standardized protocols for targeted exams where dose is matched to indication/reason for exam; i.e. extremities or head). *Use of iterative reconstruction technique. DLP: 898 mGy-cm FINDINGS: No significant cutaneous thickening. Mild subcutaneous fat stranding throughout the posterior soft tissues of the neck. No discrete fluid collection within the deep tissues of the neck. The premaxillary, retromaxillary, pterygopalatine fossa, orbital apical, parapharyngeal, and prelaryngeal adipose tissue is maintained. Normal appearance of the parotid, submandibular, and thyroid glands. Bilateral cervical chain lymph nodes are mildly increased in number and size with maintained fatty lacie throughout, measuring up to 1.5 cm in bilateral levels V. No demonstrated focal lesion or abnormal enhancement within the intrinsic tissues of the tongue or floor of mouth. Normal mucosal contours of the pharynx and larynx without abnormal enhancement. Normal appearance of the hyoid bone, thyroid cartilage, or cartilaginous trachea. The airways remains widely patent. No radiopaque foreign bodies. Stent in place within the left subclavian/axillary vein. The atlantooccipital and atlantoaxial articulations remain well aligned. There straightening of the normal cervical lordosis. No evidence of acute fracture or subluxation of the cervical spine. The vertebral body heights are maintained. Moderate degenerative disc disease from C3-C6. Mild degenerative disc disease at all additional levels. Facet and uncovertebral joint arthropathy leads to osseous encroachment on the neural foramina from C3-C5. No evidence of epidural collection. There is no prevertebral soft tissue swelling. Normal opacification of the cervical arterial and venous structures. The visualized portion of the skull base is without significant abnormalities. Mild mucosal thickening of the paranasal sinuses. Small left-sided mastoid effusion. The right-sided mastoid air cells are clear. No demonstrated significant periapical odontogenic disease. Right-sided lens extraction. Limited evaluation of the intracranial structures without demonstrated abnormalities of the skull base. CT Upper Chest: Moderate right-sided pleural effusion. Associated compressive atelectasis of the dependent right lung. Global cardiac enlargement. Extensive coronary artery calcifications. CT/CT soft tissue neck w IV con IMPRESSION: 1. Bilateral cervical chain lymph nodes are mildly increased in number and size with maintained fatty lacie throughout, measuring up to 1.5 cm in bilateral levels V. 2. No additional focal lesion, collection, or abnormal enhancement within the soft tissues of the neck. 3. Moderate multilevel degenerative spondyloarthropathy of the cervical spine. 4. Moderate right-sided pleural effusion. Global cardiac enlargement.
--- NOTE | ~2023-04-10 | XR_ITS ---
EXAMINATION: XR CHEST CLINICAL INFORMATION: Post right thoracentesis COMPARISON: Previous chest x-ray from yesterday TECHNIQUE: Frontal view of the chest was obtained. FINDINGS: The cardiac silhouette is enlarged but stable. There may be pulmonary venous redistribution and increased attenuation suggestive of mild pulmonary edema. There is a small right pleural effusion decreased in size from yesterday's exam. No left pleural effusion. No pneumothorax. Left axillary and subclavian vascular stent. XR/XR chest 1V IMPRESSION: No pneumothorax post right thoracentesis. Small right pleural effusion decreased from yesterday's exam.
--- NOTE | ~2023-04-10 | CT_ITS ---
EXAMINATION: CT HEAD WITHOUT CONTRAST CLINICAL INFORMATION: Question of mild clonus versus seizure. COMPARISON: Report of brain MRI 04/13/2010. TECHNIQUE: Contiguous axial imaging was performed from the skull base to vertex without intravenous administration of contrast. This CT examination was performed using dose optimization techniques as appropriate, variously including the following: *Automated exposure control *Adjustment of mA and/or kV according to patient size (this includes techniques or standardized protocols for targeted exams where dose is matched to indication/reason for exam; i.e. extremities or head) *Use of iterative reconstruction technique DLP: 719 mGy-cm. FINDINGS: There is no intracranial hemorrhage, large infarction, or mass lesion. There is no extra-axial collection. The ventricles are normal in size and configuration without evidence of hydrocephalus. The visualized paranasal sinuses and mastoid air cells are clear. There is bilateral mastoid fluid. CT/CT head/brain wo IV con IMPRESSION: No acute intracranial abnormality.
--- NOTE | ~2023-04-10 | US_ITS ---
EXAMINATION: ULTRASOUND-GUIDED THORACENTESIS CLINICAL INFORMATION: Pleural effusion -right hemithorax COMPARISON: CT scan of the chest dated 04/10/2023. TECHNIQUE: The skin was prepped and draped in the usual fashion. 1% Xylocaine was used for local anesthetic. Under ultrasound guidance a 5 Sinhala Yueh catheter was placed in the right pleural space. 1600 mL of clear yellow fluid was drained and sent for analysis. FINDINGS: Large right pleural effusion. 1600 mL of fluid drained. US/US thoracentesis IMPRESSION: Thoracentesis with 1600 ML of fluid drained. The fluid was sent for analysis.
--- NOTE | ~2023-04-10 | CT_ITS ---
EXAMINATION: CT CHEST WITHOUT CONTRAST CLINICAL INFORMATION: Right pleural effusion. COMPARISON: None available. TECHNIQUE: Multidetector volumetric CT imaging of the chest was done. Axial MIP volume rendering provided. Sagittal and coronal reformatted images were obtained. This CT examination was performed using dose optimization techniques as appropriate, variously including the following: *Automated exposure control *Adjustment of mA and/or kV according to patient size (this includes techniques or standardized protocols for targeted exams where dose is matched to indication/reason for exam; i.e. extremities or head) *Use of iterative reconstruction technique DLP: 307 mGy-cm FINDINGS: NUCLEAR SPECTROSCOPIST: There is moderate right pleural effusion. LUNGS: The lungs are well-expanded with right lower lobe compressive atelectasis from underlying pleural effusion. MEDIASTINUM: Heart size is enlarged with no pericardial effusion seen. No abnormal size mediastinal or hilar lymph nodes seen. The central trachea and bronchi are widely patent. Thyroid lobes are symmetrical and normal. CORONARY ARTERY CALCIFICATION: There is moderate coronary artery calcifications present. PLEURA: There is moderate right pleural effusion without any pleural thickening or calcification. No left pleural effusion seen. AXILLA: No lymphadenopathy. UPPER ABDOMEN: Visualized liver, spleen, pancreas and bilateral adrenal glands are unremarkable. OSSEOUS STRUCTURES: There is mild ventral spondylosis CT/CT chest wo IV con IMPRESSION: 1. Moderate right pleural effusion with right lower lobe compressive atelectasis. 2. Mild cardiomegaly. Fleischner guidelines were followed.
--- NOTE | ~2023-04-10 | XR_ITS ---
EXAMINATION: XR CHEST CLINICAL INFORMATION: Question pneumonia COMPARISON: 04/16/2023 TECHNIQUE: Frontal view of the chest was obtained. FINDINGS: Lung volumes are symmetric. Small right pleural effusion is noted and may be slightly decreased from prior. Adjacent basilar parenchymal opacity is favored to reflect atelectasis though a component of consolidation would be difficult to exclude. Left lung appears well-expanded without focal consolidation. No evidence of pneumothorax. Central vasculature remains prominent, suspicious for congestion. Cardiac silhouette is enlarged. Calcification is present at the aortic arch. Left axillary/subclavian stents noted. No acute osseous findings are seen. XR/XR chest 1V IMPRESSION: Small right pleural effusion, possibly slightly decreased from prior. Adjacent basilar parenchymal opacity is favored to reflect atelectasis though component of consolidation would be difficult to exclude. Central vascular congestion.
--- NOTE | ~2023-04-10 | XR_ITS ---
EXAMINATION: XR CHEST CLINICAL INFORMATION: SOB and chest pain COMPARISON: Chest 04/19/2022. TECHNIQUE: 2 views of the chest were obtained. FINDINGS: There is moderate opacification right lung base from pleural effusion. The right upper lung and the left lung remains clear. Heart size and pulmonary vascularity is normal. No gross bony abnormality seen. XR/XR chest 2V IMPRESSION: Moderate right pleural effusion with underlying atelectasis.
--- NOTE | ~2023-04-10 | XR_ITS ---
EXAMINATION: XR CHEST CLINICAL INFORMATION: Follow-up for pleural effusion. COMPARISON: Chest 04/11/2023 TECHNIQUE: Frontal view of the chest was obtained. FINDINGS: There is small right pleural effusion with underlying atelectasis similar to previous study 04/11/2023. The right upper lung and left lung remains clear and expanded. There is mild cardiomegaly with increased pulmonary vascularity. There is moderate spondylosis dorsal spine. No aggressive lytic or sclerotic process seen. XR/XR chest 1V IMPRESSION: There is small right pleural effusion and underlying atelectasis similar to previous exam 04/11/2023. No pneumothorax seen. There is cardiomegaly with increased vascularity likely mild congestion.
[2023-04-10 12:34] VITALS: BP 158/137; PULSE 71; RESP 16; TEMP 36.7; O2SAT 86; BMI 32.4
--- NOTE | 2023-04-10 12:37 | ED.GENADULT ---
HPI - General Adult General Chief complaint: Dyspnea Stated complaint: Neck pain rad down R arm no inj Time Seen by Provider: 04/10/23 16:51 Source: patient, RN notes reviewed and old records reviewed Mode of arrival: ambulatory Limitations: language barrier History of Present Illness HPI narrative: 67-year-old primarily Nepali-speaking male presents for evaluation of shortness of breath and right-sided neck pain. Patient reports his symptoms worsened about 1 week ago He has a history of diabetes, COPD/asthma, dyslipidemia, end-stage renal disease on dialysis Monday, Monday, Monday, DVT on Eliquis He reports especially increasing shortness of breath with exertion and walking He also has neck pain on the right neck that goes down into his chest and back He was found to be hypoxic and was placed on nasal cannula 2 liters. The patient reports that he did go to dialysis this morning Related Data Home Medications Medication Instructions Recorded Confirmed albuterol sulfate 90 mcg/actuation 2 puff inhalation Q4H PRN 04/19/22 04/19/22 aerosol inhaler Shortness Of Breath allopurinol 100 mg tablet 100 mg PO MOWEFR@1600 04/19/22 04/19/22 apixaban 5 mg tablet (Eliquis) 5 mg PO BID 04/19/22 04/19/22 aspirin 81 mg tablet,delayed 81 mg PO DAILY 04/19/22 04/19/22 release atorvastatin 40 mg tablet 40 mg PO DAILY 04/19/22 04/19/22 carvedilol 3.125 mg tablet 3.125 mg PO BID 04/19/22 04/19/22 doxazosin 4 mg tablet 4 mg PO BEDTIME 04/19/22 04/19/22 furosemide 80 mg tablet 80 mg PO DAILY 04/19/22 04/19/22 guaifenesin 100 mg/5 mL oral 300 mg PO TID COUGH 04/19/22 04/19/22 liquid (Mel-Tussin) hydralazine 25 mg tablet 25 mg PO TID 04/19/22 04/19/22 ipratropium 0.5 mg-albuterol 3 mg 3 ml inhalation Q4H PRN Wheezing 04/19/22 04/19/22 (2.5 mg base)/3 mL nebulization soln omeprazole 20 mg capsule,delayed 20 mg PO DAILY 04/19/22 04/19/22 release polyethylene glycol 3350 17 17 g PO DAILY PRN Constipation 04/19/22 04/19/22 gram/dose oral powder pregabalin 75 mg capsule 75 mg PO DAILY 04/19/22 04/19/22 sennosides 8.6 mg-docusate sodium 1 tab PO DAILY PRN Constipation 04/19/22 04/19/22 50 mg tablet (Senna-Time S) sevelamer carbonate 800 mg tablet 1,600 mg PO TIDWM 04/19/22 04/19/22 fluticasone fur. 200 mcg-umeclid 1 ea inhalation DAILY 04/10/23 62.5 mcg-vilant 25 mcg inhalat.powder (Trelegy Ellipta) insulin glargine 100 unit/mL (3 34 unit subcut BEDTIME 04/10/23 mL) subcutaneous pen (Lantus Solostar U-100 Insulin) insulin lispro 100 unit/mL 6 unit subcut TID 04/10/23 subcutaneous pen labetalol 100 mg tablet 100 mg PO BID 04/10/23 lisinopril 10 mg tablet 10 mg PO DAILY 04/10/23 nifedipine 60 mg tablet,extended 60 mg PO BID 04/10/23 release 24 hr sucroferric oxyhydroxide 500 mg 500 mg PO TID 04/10/23 chewable tablet (Velphoro) Previous Rx's Medication Instructions Recorded ketoconazole 2 % shampoo 1 appl topical 3XW #120 mL 09/28/22 ofloxacin 0.3 % ear drops 10 drp otic (ears) DAILY 7 days 09/28/22 #10 mL Allergies Allergy/AdvReac Type Severity Reaction Status Date / Time No Known Allergies Allergy Verified 09/28/22 11:38 Review of Systems Constitutional: Constitutional: Denies body ache(s), Denies chills and Denies fever(s) Cardiovascular: Cardiovascular: Reports chest pain, Reports dyspnea and Reports dyspnea on exertion Respiratory: Respiratory: Denies cough, Reports dyspnea and Reports dyspnea on exertion Gastrointestinal: Gastrointestinal: Denies abdominal pain, Denies nausea and Denies vomiting Musculoskeletal: Musculoskeletal: Reports back pain Integumentary/Breasts: Skin/Breast: Denies rash PMFSH Past Medical History Medical History A-V fistula Anemia Congestive heart disease Dialysis complication ESRD (end stage renal disease) ESRD on dialysis Falling Hyperlipidemia Hypertension Noncompliance with CPAP treatment Occlusive thrombus ROBERT (obstructive sleep apnea) Pulmonary edema Type 2 diabetes mellitus Social History Social History Household Members: Family Housing: House Alcohol intake: never Comment: Patient is noncompliant with ringing for assistance Patient Tobacco Use Status: Former Tobacco user Smoked in Last 30 Days: No Use of substances other than those prescribed or required for medical reasons: No Advance Directives: No Advance Directives Information Provided: No service: No Physical Exam ED Vital Signs: Vital Signs - 24 hr 04/10/23 12:34 04/10/23 15:55 04/10/23 18:35 Temperature 98.1 F 97.7 F Pulse Rate 71 63 67 Respiratory Rate 16 20 15 Blood Pressure 158/137 H 175/66 H 187/78 H Pulse Oximetry 86 L 94 94 Oxygen Delivery Method Room Air Nasal Cannula Nasal Cannula Oxygen Flow Rate 2 2 04/10/23 20:29 04/10/23 20:33 Temperature 97.8 F Pulse Rate 67 Respiratory Rate 17 Blood Pressure 149/47 H Pulse Oximetry 95 Oxygen Delivery Method Nasal Cannula Oxygen Flow Rate 2 BMI result Body Mass Index 32.4 Const General: healthy appearing, comfortable, no acute distress, alert and awake Nutritional Appearance: well nourished Orientation/consciousness: patient oriented x3 HENMT Head: Yes normocephalic and Yes atraumatic Eyes Eyelids: Yes eyelids normal Conjunctivae: conjunctivae normal Sclerae: sclerae normal Corneas: corneas normal Pupils: Equal, round and reactive pupils present EOM: EOMs intact bilaterally Neck Neck: Yes full ROM Resp Other: Diminished breath sounds, but no wheezing. Crackles in the right lung base Effort & Inspection: normal respiratory effort, able to speak in complete sentences and not labored GI Inspection: No distended Palpation (GI): Soft to palpation, not firm, nontender, no guarding and not rigid Skin General skin exam: elasticity normal Neuro General: patient oriented x3 Cranial nerves: Yes Equal, round and reactive pupils present and Yes Bilaterally intact EOM present Cognition (Neuro): normal cognition Extrem Other: Moving all extremities well without any obvious deformities Course Course Course Narrative: This is an RME: Additional HPI, ROS, PE not included below will be deferred to primary provider. 66 year old male with ROBERT noncompliant with CPAP, insulin dependent type 2 diabetes, dyslipidemia, ESRD on dialysis MWF with [facility], htn, hx occlusive thrombus on eliquis presented to the ED with complaints of neck pain, recent injury. Upon further questioning, as patient oxygen saturation 86 % on RA. Placed on 2 L nasal cannula, he reports that he also has had chest pain and shortness breath. Plan: Labs, EKG, chest x-ray viral swabs Reevaluation(s) Reevaluation #1: Patient's x-ray showed a moderate effusion which was not present last year. A CT scan followed up with shows same with compressive atelectasis. I have no suspicion for pneumonia or reactive airway disease, so he was not given steroids or antibiotics. Discussed with the hospitalist for admission and likely IR in the morning. Time: 20:23 Reevaluation #2: Discussed with hospitalist team who were concerned the patient may have a right-sided neck mass and given the patient's pleural effusions right-sided recommends CT neck/soft tissue with IV contrast. I discussed with Nephrology, Dr. Lemus who gave the okay to inject IV contrast for this patient's CT scan. Time: 20:49 Medical Decision Making Medical Decision Making MDM Narrative: 67-year-old male presents for evaluation of neck pain radiating to his back and chest as well as shortness of breath and hypoxia. Use found to be 87 percent on room air and was placed on 2 liters via nasal cannula. Patient is a dialysis patient, he is noted to be somewhat hypertensive. Patient's EKG is normal sinus rhythm with a rate of 64 beats per minute. No significant change when compared to April of last year. No ST segment elevation OK. patient's potassium is 3.7, BUN and creatinine elevated which is consistent with his known history of renal disease. His troponin is elevated to 64 with a BNP of 2423. He has a history of chronically elevated troponin and BNP likely related to his renal disease. Plan for repeat troponin. Patient's chest x-ray shows a moderate right pleural effusion, unclear etiology as the patient did have dialysis this morning. Will follow up with a CT scan of the chest. Differential Diagnosis Differential Diagnoses: The differential diagnosis associated with the presentation includes CHF Volume overload Pneumonia Bronchitis Pleural effusion Hypoxia Admission/Observation Consideration of admission/observation: Escalation of care including admission/observation considered Lab Data MDM Lab Attestation statement: I reviewed the patient's lab results. See above 04/10/23 12:56 04/10/23 12:56 Labs: Lab Results 04/10/23 04/10/23 Range/Units 12:56 19:22 WBC 7.2 (4.8-10.8) X10*3/uL RBC 4.76 (4.60-5.80) X10*6/uL Hgb 11.1 L (14.0-18.0) g/dl Hct 35.8 L (42.0-52.0) % MCV 75.2 L (80.0-98.0) fL MCH 23.3 L (27.0-33.0) pg MCHC 31.0 (31.0-36.0) g/dl RDW 16.2 H (11.0-16.0) % Plt Count 116 L (160-400) X10*3/uL MPV Not Reportable Immature Gran % (Auto) 0.3 (0.0-0.4) % Neut % (Auto) 73.1 H (45-73) % Lymph % (Auto) 13.2 L (20-40) % [place] % (Auto) 9.0 (2-11) % Eos % (Auto) 4.0 (0-4) % Baso % (Auto) 0.4 (0-2) % Lymph # (Auto) 1.0 L (1.2-4.9) X10*3/uL [place] # (Auto) 0.7 (0.1-1.2) X10*3/uL Eos # (Auto) 0.3 (0.0-0.4) X10*3/uL Baso # (Auto) 0.0 (0.0-0.2) X10*3/uL Abs Immat Gran (auto) 0.02 (0.00-0.03) X10*3/uL Absolute Neuts (auto) 5.3 (2.0-8.3) x10*3/uL Absolute Nucleated RBC 0.000 (0.0-0.012) X10*3/uL Nucleated RBC % (auto) 0.0 (0.0-0.2) /100WBC Sodium 141 (135-145) mmol/L Potassium 3.7 (3.3-5.1) mmol/L Chloride 104 (96-108) mmol/L Carbon Dioxide 26 (22-29) mmol/L Anion Gap 15 (12-20) BUN 28 H (9-16) mg/dL Creatinine 6.67 H* (0.5-1.4) mg/dL Estim Creat Clear Calc 10.7 Estimated GFR 8 Random Glucose 270 H (60-115) mg/dL Calcium 8.5 (8.4-10.2) mg/dL Total Bilirubin 0.5 (0.0-1.0) mg/dL Direct Bilirubin 0.3 (0.0-0.5) mg/dL AST 19 (5-37) U/L ALT 39 (0-40) U/L Alkaline Phosphatase 200 H (39-117) U/L Troponin I High Sens 64.0 H 56.4 H (<3.5-35.0) ng/L B-Natriuretic Peptide 2423 H (<100) pg/mL Total Protein 7.3 (6.5-8.0) g/dL Albumin 4.0 (3.5-5.0) g/dL COVID-19 ([facility]) Negative (Negative) COVID-19 Clin Com See Note Influenza Type A ([facility]) Negative (Negative) Influenza Type B ([facility]) Negative (Negative) Influenza A & B Note See Note Independent Interpretation I performed an independent interpretation of an: EKG (See above) and Plain X-Ray (Right-sided pleural effusion) Discharge Plan Discharge Clinical Impression: Hypoxia, Pleural effusion Patient Disposition: Admitted As Inpatient
--- NOTE | 2023-04-10 12:42 | ECG_ITS ---
Test Reason : sob Blood Pressure : / mmHG Vent. Rate : 064 BPM Atrial Rate : 064 BPM P-R Int : 144 ms QRS Dur : 126 ms QT Int : 468 ms P-R-T Axes : 039 -03 079 degrees QTc Int : 482 ms Normal sinus rhythm Non-specific intra-ventricular conduction block Minimal voltage criteria for LVH, may be normal variant ( James product ) Abnormal ECG When compared with ECG of 20-APR-2022 19:27, Questionable change in QRS axis Referred By: Rahel Montes De Oca Electronically Signed By:SHEEBA GRIFFITHS
[2023-04-10 13:03] LABS: MANUAL DIFF FLAG NO
[2023-04-10 13:06] LABS: Basophils Percent Auto 0.4 % (0-2); Eosinophils Absolute Auto 0.3 X10*3/uL (0.0-0.4); Hematocrit 35.8 % (42.0-52.0); Hemoglobin 11.1 g/dl (14.0-18.0); Imm Gran Abs Auto 0.02 X10*3/uL (0.00-0.03); Imm Gran Pct Auto 0.3 % (0.0-0.4); Lymphocytes Percent Auto 13.2 % (20-40); Mean Corpuscular Hemoglobin 23.3 pg (27.0-33.0); Mean Corpuscular Volume 75.2 fL (80.0-98.0); Monocytes Absolute Auto 0.7 X10*3/uL (0.1-1.2); Neutrophils Absolute Auto 5.3 x10*3/uL (2.0-8.3); Neutrophils Percent Auto 73.1 % (45-73); Platelet Count 116 X10*3/uL (160-400); Red Blood Count 4.76 X10*6/uL (4.60-5.80); Red Cell Distribution Width 16.2 % (11.0-16.0); White Blood Count 7.2 X10*3/uL (4.8-10.8)
[2023-04-10 13:25] LABS: B Type Natriuretic Peptide 2423 pg/mL (<100); COVID-19 Test Negative (Negative); IDNOW Serial# 08D9AD1C
[2023-04-10 13:26] LABS: Alanine Aminotransferase 39 U/L (0-40); Alkaline Phosphatase 200 U/L (39-117); Anion Gap 15 (12-20); Aspartate Amino Transferase 19 U/L (5-37); Bilirubin Direct 0.3 mg/dL (0.0-0.5); Bilirubin Total 0.5 mg/dL (0.0-1.0); Blood Urea Nitrogen 28 mg/dL (9-16); Calcium 8.5 mg/dL (8.4-10.2); Carbon Dioxide 26 mmol/L (22-29); Chloride 104 mmol/L (96-108); Creatinine Clr Calc Pharmacy 10.7; Estimated Glomerular Filt Rate 8; Glucose Random 270 mg/dL (60-115); IDNOW Serial# 58CA691E; Influenza A Negative (Negative); Influenza B2 Negative (Negative); Potassium 3.7 mmol/L (3.3-5.1); Sodium 141 mmol/L (135-145); Total Protein 7.3 g/dL (6.5-8.0)
[2023-04-10 15:55] VITALS: BP 175/66; PULSE 63; RESP 20; O2SAT 94
[2023-04-10 18:35] VITALS: BP 187/78; PULSE 67; RESP 15; TEMP 36.5; O2SAT 94
[2023-04-10 19:53] LABS: Troponin-I High Sensitivity 56.4 ng/L (<3.5-35.0)
[2023-04-10 20:29] VITALS: PULSE 67; RESP 17; TEMP 36.6; O2SAT 95
[2023-04-10 20:33] VITALS: BP 149/47
[2023-04-10] MEDS: iohexoL 350 MG/ML 100 ML INFUS..BTL 85 ML IV (21:25)
--- NOTE | 2023-04-10 21:54 | PC.NURSE ---
assumed care of patient at 21:15. pt resting comfortably on stretcher in no apparent distress, family at bedside. CT done waiting for results. call montilla within reach plan of care ongoing
[2023-04-10 23:30] VITALS: BP 132/51; PULSE 66; RESP 18; TEMP 36.7; O2SAT 93
[2023-04-10] MEDS: Morphine Sulfate 4 MG/ML CARTRIDGE IVPUSH (23:38)
[2023-04-10] MEDS: Acetaminophen 325 MG TABLET 650 MG PO (23:38)
--- NOTE | 2023-04-11 01:04 | P.HPHOSP_ITS ---
History of Present Illness Date of Service: 04/10/23 Attending physician on admission: Conor Islas Chief Complaint: Shortness of breath Beau Marie is a 67 years old man with past medical history significant for end-stage renal disease on hemodialysis (MWF), type 2 diabetes on insulin, essential hypertension and hyperlipidemia presents to the emergency department complaining of worsening shortness on breath over the last couple of days status worse with minimal exertion. He also complained of a right-sided thoracic (w/ inspiration) and right-sided neck pain. He did not report any cough, fever or chills. He did not report any headache, dizziness or palpitations. He did not report any acute gastrointestinal genitourinary symptoms. There is no swelling to the lower extremities. His last hemodialysis session was completed and without complications. Patient did not recall the name of his home medications, however, was able to tell me that he has not on Eliquis anymore and the take only a baby aspirin. He might be taking furosemide (last time it was dispensed was March 27 of this year). He denied alcohol abuse, tobacco smoking or illicit drug use. Patient denies history of congestive heart failure. In the ED, he was found to have stable vital signs, however his oxygen saturation was 86% on room air and currently requiring 2 liters/minute supplemental oxygen via nasal cannula. His blood workup is remarkable for elevated BNP and troponin (which is trending down). There is no metabolic acidosis or hyperkalemia. There is hyperglycemia, 270. Viral testing for COVID-19 and influenza are negative. CXR showed moderate right pleural effusion with underlying atelectasis. Chest CT scan without contrast showed moderate right pleural effusion with right lower lobe compressive atelectasis and mild cardiomegaly. Neck CT scan soft tissue show bilateral cervical chain lymph node and no additional focal lesion within the soft tissue of the neck. ED tx: Acetaminophen 650 mg p.o., morphine 4 mg IV. Review of Systems 2 Review of Systems: All 12 systems were reviewed and normal except as noted in HPI. [facility] Medical History A-V fistula Anemia Congestive heart disease Dialysis complication ESRD (end stage renal disease) ESRD on dialysis Falling Hyperlipidemia Hypertension Noncompliance with CPAP treatment Occlusive thrombus ROBERT (obstructive sleep apnea) Pulmonary edema Type 2 diabetes mellitus Social History Household Members: Family Housing: House Alcohol intake: never Comment: Patient is noncompliant with ringing for assistance Patient Tobacco Use Status: Former Tobacco user Smoked in Last 30 Days: No Use of substances other than those prescribed or required for medical reasons: No Advance Directives: No Advance Directives Information Provided: No Nutrition Risks: No Nutritional Risk service: No Meds Allergies Allergy/AdvReac Type Severity Reaction Status Date / Time No Known Allergies Allergy Verified 09/28/22 11:38 Active Medications: Current Medications Acetaminophen (Acetaminophen 325 Mg Tablet) 650 mg PO Q6H PRN PRN Reason: Pain, Mild (Pain Scale 1-3) Albuterol Sulfate (Albuterol Sulfate 90 Mcg 8 Gm Inhaler) 2 puff INHALE Q4H PRN PRN Reason: Shortness Of Breath Allopurinol (Allopurinol 100 Mg Tablet) 100 mg PO MOWEFR@1600 [facility] Aspirin (Aspirin Enteric Coated 81 Mg Tablet.Dr) 81 mg PO DAILY [facility] Atorvastatin Calcium (Atorvastatin Calcium 40 Mg Tablet) 40 mg PO DAILY [facility] Dextrose (Dextrose 50 % 25 Gm/50 Ml Syringe) 25 gm IVPUSH Q15M PRN; Protocol PRN Reason: per Hypoglycemia Standing Ord. Doxazosin Mesylate (Doxazosin Mesylate 2 Mg Tablet) 4 mg PO BEDTIME [facility]; Protocol Fluticasone/Umeclidinium/Vilanterol (Fluticasone/Umeclidinium/Vilanterol 200/62.5/25 Blst.W.Dev) puff INHALE DAILY [facility] Furosemide (Furosemide 40 Mg Tablet) 80 mg PO DAILY [facility]; Protocol Glucose (Glucose Gel 15 Gm Gel..Gram.) 15 gm PO Q15M PRN; Protocol PRN Reason: per Hypoglycemia Standing Ord. Insulin Human Lispro (Insulin Lispro 100 Unit/Ml 3 Ml Vial) 0 unit SUBCUT QIDACHS [facility]; Protocol Labetalol HCl (Labetalol Hcl 100 Mg Tablet) 100 mg PO BID [facility]; Protocol Lisinopril (Lisinopril 10 Mg Tablet) 10 mg PO DAILY [facility]; Protocol Nifedipine (Nifedipine Er 60 Mg Tab.Er.24) 60 mg PO BID [facility]; Protocol Non-Formulary Medication (Sucroferric Oxyhydroxide [Velphoro]) 500 mg PO TID [facility] Oxycodone HCl (Oxycodone Hcl Immed Release 5 Mg Tablet) 5 mg PO Q6H PRN PRN Reason: Pain, Severe (Pain Scale 7-10) Pregabalin (Pregabalin 75 Mg Capsule) 75 mg PO DAILY [facility] Senna/Docusate Sodium (Sennosides/Docusate Sodium Tablet) 1 tab PO DAILY PRN PRN Reason: Constipation Sevelamer Carbonate (Sevelamer Carbonate Tablet 800 Mg Tablet) 800 mg PO TIDWM [facility] Sodium Chloride (0.9 % Sodium Chloride Flush 3 Ml Syringe) [facility] Last Admin: 04/11/23 00:36 Dose: Not Given Home Medications Medication Instructions Recorded Confirmed Last Taken Type albuterol sulfate 90 mcg/actuation 2 puff inhalation Q4H PRN 04/19/22 04/10/23 Unknown History aerosol inhaler Shortness Of Breath allopurinol 100 mg tablet 100 mg PO MOWEFR@1600 04/19/22 04/10/23 04/18/22 History apixaban 5 mg tablet (Eliquis) 5 mg PO BID 04/19/22 04/19/22 04/19/22 History aspirin 81 mg tablet,delayed 81 mg PO DAILY 04/19/22 04/10/23 04/19/22 History release atorvastatin 40 mg tablet 40 mg PO DAILY 04/19/22 04/10/23 04/19/22 History carvedilol 3.125 mg tablet 3.125 mg PO BID 04/19/22 04/19/22 04/19/22 History doxazosin 4 mg tablet 4 mg PO BEDTIME 04/19/22 04/10/23 04/18/22 History furosemide 80 mg tablet 80 mg PO DAILY 04/19/22 04/10/23 04/19/22 History guaifenesin 100 mg/5 mL oral 300 mg PO TID COUGH 04/19/22 04/19/22 Unknown History liquid (Mel-Tussin) hydralazine 25 mg tablet 25 mg PO TID 04/19/22 04/19/22 04/19/22 History ipratropium 0.5 mg-albuterol 3 mg 3 ml inhalation Q4H PRN Wheezing 04/19/22 04/10/23 Unknown History (2.5 mg base)/3 mL nebulization soln omeprazole 20 mg capsule,delayed 20 mg PO DAILY 04/19/22 04/10/23 04/19/22 History release polyethylene glycol 3350 17 17 g PO DAILY PRN Constipation 04/19/22 04/10/23 Unknown History gram/dose oral powder pregabalin 75 mg capsule 75 mg PO DAILY 04/19/22 04/10/23 04/19/22 History sennosides 8.6 mg-docusate sodium 1 tab PO DAILY PRN Constipation 04/19/22 04/10/23 04/19/22 History 50 mg tablet (Senna-Time S) sevelamer carbonate 800 mg tablet 1,600 mg PO TIDWM 04/19/22 04/19/22 04/19/22 History fluticasone fur. 200 mcg-umeclid 1 ea inhalation DAILY 04/10/23 04/10/23 Unknown History 62.5 mcg-vilant 25 mcg inhalat.powder (Trelegy Ellipta) insulin glargine 100 unit/mL (3 34 unit subcut BEDTIME 04/10/23 04/10/23 Unknown History mL) subcutaneous pen (Lantus Solostar U-100 Insulin) insulin lispro 100 unit/mL 6 unit subcut TID 04/10/23 04/10/23 Unknown History subcutaneous pen labetalol 100 mg tablet 100 mg PO BID 04/10/23 04/10/23 Unknown History lisinopril 10 mg tablet 10 mg PO DAILY 04/10/23 04/10/23 Unknown History nifedipine 60 mg tablet,extended 60 mg PO BID 04/10/23 04/10/23 Unknown History release 24 hr sucroferric oxyhydroxide 500 mg 500 mg PO TID 04/10/23 04/10/23 Unknown History chewable tablet (Velphoro) Physical Exam 2 Vital Signs and Narrative: Vital Signs: Last Vital Signs Temp 98.1 F 04/10/23 23:30 Pulse 66 04/10/23 23:30 Resp 18 04/10/23 23:30 BP 132/51 L 04/10/23 23:30 Pulse Ox 93 04/10/23 23:30 O2 Del Method Nasal Cannula 04/10/23 23:30 O2 Flow Rate 2 04/10/23 23:30 BMI result Body Mass Index 32.4 Constitutional - Awake and Alert, No apparent distress. HEENT - Normocephalic, atraumatic. Pupils equally round. No scleral icterus. Nasal cannula in place. Heart - S1S2, RRR, No edema Respiratory - Normal lung expansion, Normal respiratory effort, No respiratory distress, right lung: Decreased breath sound at base. Left lung: Clear. No tachypnea. No use of accessory muscles. Gastrointestinal - NT / ND; +BS; No rebound or guarding - No CVA tenderness Extremities - no calf tenderness bilaterally, no swelling Musculoskeletal - Normal inspection, normal ROM Skin - Warm/Dry Neurological - Alert & oriented x3. Normal speech. No focal weakness. Psychological - Appropriate affect Results Labs 04/10/23 12:56 04/10/23 12:56 Labs: Laboratory Results - last 24 hr 04/10/23 12:56 MCV 75.2 L MCH 23.3 L MCHC 31.0 RDW 16.2 H Plt Count 116 L MPV Not Reportable Immature Gran % (Auto) 0.3 Neut % (Auto) 73.1 H Lymph % (Auto) 13.2 L Keith % (Auto) 9.0 Eos % (Auto) 4.0 Baso % (Auto) 0.4 Lymph # (Auto) 1.0 L Keith # (Auto) 0.7 Eos # (Auto) 0.3 Baso # (Auto) 0.0 Abs Immat Gran (auto) 0.02 Absolute Neuts (auto) 5.3 Absolute Nucleated RBC 0.000 Nucleated RBC % (auto) 0.0 Anion Gap 15 Estim Creat Clear Calc 10.7 Estimated GFR 8 Random Glucose 270 H Calcium 8.5 Total Bilirubin 0.5 Direct Bilirubin 0.3 AST 19 ALT 39 Alkaline Phosphatase 200 H B-Natriuretic Peptide 2423 H Total Protein 7.3 Albumin 4.0 COVID-19 (BETNLEY) Negative COVID-19 Clin Com See Note Influenza Type A (GAYLE) Negative Influenza Type B (GAYLE) Negative Influenza A & B Note See Note Imaging Radiologist's Impressions: Impressions Chest X-Ray 04/10/23 15:59 IMPRESSION: Moderate right pleural effusion with underlying atelectasis. Chest CT 04/10/23 18:45 IMPRESSION: 1. Moderate right pleural effusion with right lower lobe compressive atelectasis. 2. Mild cardiomegaly. Fleischner guidelines were followed. Soft Tissue Neck CT 04/10/23 21:42 IMPRESSION: 1. Bilateral cervical chain lymph nodes are mildly increased in number and size with maintained fatty lacie throughout, measuring up to 1.5 cm in bilateral levels V. 2. No additional focal lesion, collection, or abnormal enhancement within the soft tissues of the neck. 3. Moderate multilevel degenerative spondyloarthropathy of the cervical spine. 4. Moderate right-sided pleural effusion. Global cardiac enlargement. Assessment and Plan (1) Pleural effusion: Status: Acute (2) Hypoxic respiratory failure: Qualifiers: Chronicity: acute Qualified Code(s): J96.01 - Acute respiratory failure with hypoxia Status: Acute Plan Beau Marie is a 67 years old man admitted with: * Hypoxic respiratory failure secondary to right-sided pleural effusion. Admit to hospitalist service. Continue supplemental oxygen to keep oxygen saturation above 90%. IR consult for thoracentesis. Aspirin on hold (not longer taking Eliquis). Check echocardiogram. Continue Lasix p.o. * End-stage renal disease on HD. No metabolic acidosis or hyperkalemia. Continue Velphoro. Renal diet. Nephrology consult for inpatient hemodialysis. * Elevated troponin. Likely secondary to end-stage renal disease. Doubt ACS. Recheck troponin in the morning. Check echocardiogram. * Essential hypertension. Continue lisinopril, nifedipine and labetalol. * Neuropathy. Continue pregabalin. * Gout. Continue allopurinol. * Type 2 diabetes mellitus. Patient stated that his BG has been very low lately. Will hold Lantus for now. Diabetic diet. Blood glucose monitoring before meals at bedtime. * Anemia. Chronic. Continue to monitor hemoglobin. * Hyperlipidemia. Continue statin. * Obstructive sleep apnea. Hx of noncompliance with CPAP treatment. DVT prophylaxis: SCDs only (possible procedure in am) Code status: Full Patient will need hospitalization for at least 2 midnight for hypoxic respiratory failure secondary to right pleural effusion treatment with supplemental oxygen and evaluation by IR for possible thoracentesis. Quality Stroke Does the patient have a stroke diagnosis?: No VTE Prior VTE?: No VTE Risk Level:: Medical - moderate - high VTE Device Contraindication: N/A - Device Ordered VTE Drug Contraindication: Treatment Not Indicated
[2023-04-11 05:23] LABS: Phosphorus 7.6 mg/dL (2.7-4.5)
[2023-04-11 05:24] LABS: Troponin-I High Sensitivity 57.2 ng/L (<3.5-35.0)
--- NOTE | 2023-04-11 07:00 | CA_ITS ---
Transthoracic Echocardiogram Patient (Last, First, Middle): Beau Marie A Gender: Male Date of : 1955 Age: 67 Procedure Date: 04/11/2023 Procedure Type: Transthoracic Echocardiogram Location: ER Height: 162.56 cm Weight: 85.28 kg BSA: 1.91 m2 Heart Rate: 66 bpm BP: 132 / 51 mmHg [employer]eneer [employer]r Machine: SB Referring MD: Conor Islas MD Symptoms: Right-sided pleural effusion, moderate Study Quality: Adequate ECG Rhythm: Sinus Conclusions: - The left ventricular systolic function is moderately decreased. The calculated ejection fraction is 35% by biplane method. - Evidence suggests grade II (moderate) diastolic dysfunction. - There is moderately decreased right ventricular systolic function. - No obvious valvular pathology seen on this study. - Mild pulmonary hypertension is present. Findings Left Ventricle Mildly increased left ventricular cavity size. There is mildly increased left ventricular wall thickness. The left ventricular systolic function is moderately decreased. The calculated ejection fraction is 35% by biplane method. There is moderate global hypokinesis. Evidence suggests grade II (moderate) diastolic dysfunction. LV peak GLS -9.6%. Right Ventricle Mildly increased right ventricular cavity size. There is moderately decreased right ventricular systolic function. Atria Both atria are normal in size. Aortic Valve There is a normal trileaflet aortic valve. There is no aortic valve stenosis. There is no aortic valve regurgitation. Mitral Valve The mitral valve appears normal. There is no mitral valve regurgitation. There is no mitral valve stenosis. Pulmonic Valve The pulmonic valve is likely normal. Tricuspid Valve Normal tricuspid valve structure. There is mild tricuspid valve regurgitation. Mild pulmonary hypertension is present. Great Vessels The asc aorta is normal in size. Pericardium/Pleural There is a small loculated pericardial effusion overlying the right atrium. Prior Study Comparison No prior study available for comparison. Recommendations, Care & Conclusions No obvious valvular pathology seen on this study. Measurements 2D Linear Measurements IVSd: 1.13 0.6-0.9/0.6-1.0 cm LVIDd: 5.94 3.9-5.3/4.2-5.9 cm LVIDd Index: 3.11 2.4-3.2/2.2-3.1 cm/m2 LVIDs: 4.58 2.0-3.6 cm LVPWd: 1.57 0.7-1.1 cm Ao Root: 3.00 2.1-3.5 cm LA Diam: 4.60 2.7-3.8/3.0-4.0 cm LAIDs Index: 2.41 1.5-2.3 cm/m2 LV Mass: 452.80 67-162/88-224 g LV Mass Index: 237.07 43-95/49-115 g/m2 LVOT Diam: 2.00 3.0+(-)1.3 cm 2D Systolic Function EF 4C: 34.50 >55% EF 2C: 35.50 >55% EF BiP: 35.40 >55% Mitral Valve MV Pk E: 1.15 MV PK A: 0.55 MV Decel Time: 192.00 E/A: 2.10 E'Lateral: 4.68 E'Medial: 3.81 E/E' Med: 30.20 E/E' Lat: 24.60 PHT: 56.00 MVA PHT: 3.93 Decel [place]: 5.99 Aortic Valve AoV Pk Shayan: 1.51 AoV Pk Grad: 9.00 MERI: 2.03 LVOT LVOT Pk Shayan: 0.99 LVOT Mn Shayan: 0.66 LVOT VTI: 0.22 LVOT Pk Grad: 4.00 LVOT Mn Grad: 2.00 LVOT Diam: 2.00 LVOT Area: 3.14 Diastolic Function MV Pk E: 1.15 MV Pk A: 0.55 E/A: 2.10 E'Medial: 3.81 E/E' Med: 30.20 E' Laterial: 4.68 E/E' Lat: 24.60 Right Ventricle TAPSE (mm): 11.30 TVS' Shayan: 5.55 Tricuspid Valve TR Pk Shayan: 2.94 TR Pk Grad: 35.00 RA Press: 15.00 RVSP: 50.00 Great Vessels Aorta Ao Root-2D: 3.00 2.0-3.7 cm Sinus of Valsalva: 3.00 2.0-3.5 cm Ao Asc: 3.30 2.1-3.4 cm Pulmonary Veins Pulm Vein S/D 0.80 Pulmonary Valve PV Pk Shayan: 0.80 Peak PV Grad: 3.00 Updated in Other Vendor System with Status of Final Jerad Severino MD electronically signed on 04/11/2023 1:07:44 PM with status of Final
[2023-04-11 07:27] LABS: Glucose, Whole Blood 128 mg/dL (60-115)
[2023-04-11] MEDS: Fluticasone/Umeclidinium/Vilanterol 200/62.5/25 BLST.W.DEV 1 PUFF INHALE (07:37)
[2023-04-11 07:38] VITALS: PULSE 60; RESP 14; O2SAT 97
--- NOTE | 2023-04-11 08:26 | PM.CNNEP ---
History of Present Illness Reason for Consult Consult date: 04/12/23 Chief Complaint Chief complaint: Hypoxic respiratory failure History of Present Illness Narrative: 67-year-old primarily Yi-speaking male presents for evaluation of shortness of breath He has a history of diabetes, COPD/asthma, dyslipidemia, end-stage renal disease on dialysis Monday, Monday, Monday, DVT on Eliquis He reports especially increasing shortness of breath with exertion and walking The patient reports that he did go to dialysis on monday In the ED, he was found to have stable vital signs, however his oxygen saturation was 86% on room air and requiring 2 liters/minute supplemental oxygen via nasal cannula.? CXR showed moderate right pleural effusion with underlying atelectasis.? Chest CT scan without contrast showed moderate right pleural effusion with right lower lobe compressive atelectasis and mild cardiomegaly per discussin with his dialysis unit, he has h/o cutting short treatments and wt ghain Review of Systems Review of Systems Yes all other systems are reviewed and are negative PMFSH Past Medical History Medical History Anemia ESRD (end stage renal disease) Occlusive thrombus Pulmonary edema Noncompliance with CPAP treatment ROBERT (obstructive sleep apnea) Type 2 diabetes mellitus Hyperlipidemia Hypertension A-V fistula ESRD on dialysis Falling Congestive heart disease Dialysis complication Family History Family History (Updated 04/12/23 @ 10:32 by Jerad Severino MD) Father No problems noted. Mother No problems noted. Social History Social History Household Members: Family Housing: House Do you presently have visiting nurse or other home services: No Alcohol intake: never Comment: Patient is noncompliant with ringing for assistance Patient Tobacco Use Status: Former Tobacco user service: No Meds Allergies Allergy/AdvReac Type Severity Reaction Status Date / Time No Known Allergies Allergy Verified 09/28/22 11:38 Active Medications: Current Medications Acetaminophen (Acetaminophen 325 Mg Tablet) 650 mg PO Q6H PRN PRN Reason: Pain, Mild (Pain Scale 1-3) Albuterol Sulfate (Albuterol Sulfate 90 Mcg 8 Gm Inhaler) 2 puff INHALE Q4H PRN PRN Reason: Shortness Of Breath Allopurinol (Allopurinol 100 Mg Tablet) 100 mg PO MOWEFR@1600 [facility] Aspirin (Aspirin Enteric Coated 81 Mg Tablet.) 81 mg PO DAILY [facility] Atorvastatin Calcium (Atorvastatin Calcium 40 Mg Tablet) 40 mg PO DAILY [facility] Dextrose (Dextrose 50 % 25 Gm/50 Ml Syringe) 25 gm IVPUSH Q15M PRN; Protocol PRN Reason: per Hypoglycemia Standing Ord. Doxazosin Mesylate (Doxazosin Mesylate 2 Mg Tablet) 4 mg PO BEDTIME [facility]; Protocol Fluticasone/Umeclidinium/Vilanterol (Fluticasone/Umeclidinium/Vilanterol 200/62.5/25 Blst.W.Dev) 1 puff INHALE RDAILY [facility] Last Admin: 04/11/23 07:37 Dose: 1 puff Furosemide (Furosemide 40 Mg Tablet) 80 mg PO DAILY [facility]; Protocol Glucose (Glucose Gel 15 Gm Gel..Gram.) 15 gm PO Q15M PRN; Protocol PRN Reason: per Hypoglycemia Standing Ord. Insulin Human Lispro (Insulin Lispro 100 Unit/Ml 3 Ml Vial) 0 unit SUBCUT QIDACHS [facility]; Protocol Last Admin: 04/11/23 08:15 Dose: Not Given Labetalol HCl (Labetalol Hcl 100 Mg Tablet) 100 mg PO BID [facility]; Protocol Lisinopril (Lisinopril 10 Mg Tablet) 10 mg PO DAILY [facility]; Protocol Nifedipine (Nifedipine Er 60 Mg Tab.Er.24) 60 mg PO BID [facility]; Protocol Non-Formulary Medication (Sucroferric Oxyhydroxide [Velphoro]) 500 mg PO TID [facility] Oxycodone HCl (Oxycodone Hcl Immed Release 5 Mg Tablet) 5 mg PO Q6H PRN PRN Reason: Pain, Severe (Pain Scale 7-10) Pregabalin (Pregabalin 75 Mg Capsule) 75 mg PO DAILY [facility] Senna/Docusate Sodium (Sennosides/Docusate Sodium Tablet) 1 tab PO DAILY PRN PRN Reason: Constipation Sodium Chloride (0.9 % Sodium Chloride Flush 3 Ml Syringe) 3 ml IVFLUSH QSHIFT [facility] Last Admin: 04/11/23 00:36 Dose: Not Given Home Medications Medication Instructions Recorded Confirmed Last Taken Type albuterol sulfate 90 mcg/actuation 2 puff inhalation Q4H PRN 04/19/22 04/10/23 Unknown History aerosol inhaler Shortness Of Breath allopurinol 100 mg tablet 100 mg PO MOWEFR@1600 04/19/22 04/10/23 04/18/22 History apixaban 5 mg tablet (Eliquis) 5 mg PO BID 04/19/22 04/19/22 04/19/22 History aspirin 81 mg tablet,delayed 81 mg PO DAILY 04/19/22 04/10/23 04/19/22 History release atorvastatin 40 mg tablet 40 mg PO DAILY 04/19/22 04/10/23 04/19/22 History carvedilol 3.125 mg tablet 3.125 mg PO BID 04/19/22 04/11/23 04/19/22 History doxazosin 4 mg tablet 4 mg PO BEDTIME 04/19/22 04/10/23 04/18/22 History furosemide 80 mg tablet 80 mg PO DAILY 04/19/22 04/10/23 04/19/22 History hydralazine 25 mg tablet 25 mg PO TID 04/19/22 04/19/22 04/19/22 History ipratropium 0.5 mg-albuterol 3 mg 3 ml inhalation Q4H PRN Wheezing 04/19/22 04/10/23 Unknown History (2.5 mg base)/3 mL nebulization soln omeprazole 20 mg capsule,delayed 20 mg PO DAILY 04/19/22 04/10/23 04/19/22 History release polyethylene glycol 3350 17 17 g PO DAILY PRN Constipation 04/19/22 04/10/23 Unknown History gram/dose oral powder pregabalin 75 mg capsule 75 mg PO DAILY 04/19/22 04/10/23 04/19/22 History sennosides 8.6 mg-docusate sodium 1 tab PO DAILY PRN Constipation 04/19/22 04/10/23 04/19/22 History 50 mg tablet (Senna-Time S) sevelamer carbonate 800 mg tablet 1,600 mg PO TIDWM 04/19/22 04/19/22 04/19/22 History fluticasone fur. 200 mcg-umeclid 1 ea inhalation DAILY 04/10/23 04/10/23 Unknown History 62.5 mcg-vilant 25 mcg inhalat.powder (Trelegy Ellipta) insulin glargine 100 unit/mL (3 34 unit subcut BEDTIME 04/10/23 04/10/23 Unknown History mL) subcutaneous pen (Lantus Solostar U-100 Insulin) insulin lispro 100 unit/mL 6 unit subcut TID 04/10/23 04/10/23 Unknown History subcutaneous pen labetalol 100 mg tablet 100 mg PO BID 04/10/23 04/10/23 Unknown History lisinopril 10 mg tablet 10 mg PO DAILY 04/10/23 04/10/23 Unknown History nifedipine 60 mg tablet,extended 60 mg PO BID 04/10/23 04/10/23 Unknown History release 24 hr sucroferric oxyhydroxide 500 mg 500 mg PO TID 04/10/23 04/10/23 Unknown History chewable tablet (Velphoro) acetaminophen 500 mg tablet (Pain 500 mg PO Q4H PRN Pain 04/11/23 04/11/23 Unknown History Relief Extra Strength (acetaminophen)) Physical Exam Vital Signs: Last Vital Signs Temp 98.1 F 04/10/23 23:30 Pulse 60 04/11/23 07:38 Resp 14 04/11/23 07:38 BP 132/51 L 04/10/23 23:30 Pulse Ox 93 04/10/23 23:30 O2 Del Method Nasal Cannula 04/10/23 23:30 O2 Flow Rate 2 04/10/23 23:30 BMI result Body Mass Index 32.4 cvs; s1s2 Rs; cta? ABd; soft? AVF Results Lab Results 04/10/23 12:56 04/12/23 08:39 Lab results: Chemistry 04/10/23 04/11/23 12:56 04:48 Sodium 141 Potassium 3.7 Carbon Dioxide 26 BUN 28 H Creatinine 6.67 H* Calcium 8.5 Phosphorus 7.6 H Hematology 04/10/23 12:56 WBC 7.2 Hgb 11.1 L Plt Count 116 L Assessment and Plan (1) Hypoxic respiratory failure: Qualifiers: Chronicity: acute Qualified Code(s): J96.01 - Acute respiratory failure with hypoxia Status: Acute (2) Pleural effusion: Status: Acute (3) ESRD (end stage renal disease): Status: Inactive Plan s/p HD usually has HD M-W- [facility] [address] dialysis- first shift non adherence with h/o terminating treatments early last dialysed at his unit on 04/10 REC HD MWF schedule optimize volume status improve adherence agree with IR thoracentesis cardiology eval for chf- agree with change of labetalol to coreg and lisinopril to entresto no need for NAYE (Hb > 11) phosphate binders renal diet Procedures Date of Service Date of Service: 04/12/23
--- NOTE | 2023-04-11 09:34 | MHC.CM.PN ---
Patient is unavailable; CM spoke with Son/HCP/Nestor @ [phone] and addressed IMM with him (original will be mailed certified letter to Nestor and a copy will be placed on the chart). Patient lives alone in an apartment and he uses both a cane and a walker to assist with mobility. Patient's Son/HCP/Nestor is Patient's [employer] (approved for 4 hours/day) but Son is with him most of the day. Patient goes to HD in [place] // and he has a RN daily to assist with meds (Nestor will get name of VNA & HD Clinic to CM) Home/resume said services is the goal and CM has initiated and will follow for dc planning. PCP is Dr. Jade Lewis.
[2023-04-11] MEDS: Aspirin Enteric Coated 81 MG TABLET.DR PO (09:37)
[2023-04-11] MEDS: lisinopriL 10 MG TABLET PO (09:37)
[2023-04-11] MEDS: Furosemide 40 MG TABLET 80 MG PO (09:37)
[2023-04-11] MEDS: Labetalol HCL 100 MG TABLET PO ×2 (09:37→21:28)
[2023-04-11] MEDS: Atorvastatin Calcium 40 MG TABLET PO (09:37)
[2023-04-11] MEDS: NIFEdipine ER 60 MG TAB.ER.24 PO ×2 (09:37→21:28)
[2023-04-11] MEDS: Pregabalin 75 MG CAPSULE PO (09:37)
[2023-04-11] MEDS: 0.9 % Sodium Chloride Flush 3 ML SYRINGE IVFLUSH ×3 (09:39→19:44)
[2023-04-11 10:35] VITALS: BP 113/61; PULSE 60; RESP 14; O2SAT 96
[2023-04-11 12:27] LABS: Glucose, Whole Blood 103 mg/dL (60-115)
[2023-04-11] MEDS: oxyCODONE HCl Immed Release 5 MG TABLET PO ×2 (12:29→21:33)
[2023-04-11] MEDS: Acetaminophen 325 MG TABLET 650 MG PO (12:29)
--- NOTE | 2023-04-11 13:50 | PHA.MEDREC ---
Pharmacy Consult ? Medication Reconciliation Pharmacy has completed the medication reconciliation with the pt, claims hx and doctors visit list. Patient was unable to name any medications and was not understanding questions. Called son to ask for a med list that he said he would fax over but never came. Called pharmacy and they sent over list of current meds. Called doctors office, the sent over medication list from last visit. Left meds unconfirmed that were filled over 5 and 6 months ago and only on the list from provider's office but unconfirmed from pharmacy and patient.
[2023-04-11] MEDS: Lidocaine HCl 1 % MPF 5 ML VIAL SUBCUT (14:19)
--- NOTE | 2023-04-11 14:25 | P.PNIM_ITS ---
Subjective Subjective Date of Service: 04/11/23 Interval History: Hypoxic respiratory failure secondary to right-sided pleural effusion Review of Systems hx taken with the help of tub chucker sob seems improving no chest pain or cough or fever Physical Exam 2 Vital Signs: Vital Signs: Last Vital Signs Temp 98.1 F 04/10/23 23:30 Pulse 60 04/11/23 10:35 Resp 14 04/11/23 10:35 BP 113/61 04/11/23 10:35 Pulse Ox 96 04/11/23 10:35 O2 Del Method Nasal Cannula 04/11/23 10:35 O2 Flow Rate 2 04/11/23 10:35 BMI result Body Mass Index 32.4 Appearance: Alert.? Oriented X3.?sob improving cvs: rrr, [id number]. res: air entry diminshed right>left. abd: no rebound or guarding ,nt, bs present. ext pulses present , no cyanosis. neuro: axo3 , nonfocal. Objective Data Active Medications Acetaminophen (Acetaminophen 325 Mg Tablet) 650 mg PO Q6H PRN PRN Reason: Pain, Mild (Pain Scale 1-3) Last Admin: 04/11/23 12:29 Dose: 650 mg Documented By: ALPHONSO Albuterol Sulfate (Albuterol Sulfate 90 Mcg 8 Gm Inhaler) 2 puff INHALE Q4H PRN PRN Reason: Shortness Of Breath Allopurinol (Allopurinol 100 Mg Tablet) 100 mg PO MOWEFR@1600 [facility] Aspirin (Aspirin Enteric Coated 81 Mg Tablet.) 81 mg PO DAILY [facility] Last Admin: 04/11/23 09:37 Dose: 81 mg Documented By: ALPHONSO Atorvastatin Calcium (Atorvastatin Calcium 40 Mg Tablet) 40 mg PO DAILY [facility] Last Admin: 04/11/23 09:37 Dose: 40 mg Documented By: ALPHONSO Dextrose (Dextrose 50 % 25 Gm/50 Ml Syringe) 25 gm IVPUSH Q15M PRN; Protocol PRN Reason: per Hypoglycemia Standing Ord. Doxazosin Mesylate (Doxazosin Mesylate 2 Mg Tablet) 4 mg PO BEDTIME [facility]; Protocol Fluticasone/Umeclidinium/Vilanterol (Fluticasone/Umeclidinium/Vilanterol 200/62.5/25 Blst.W.Dev) 1 puff INHALE RDAILY [facility] Last Admin: 04/11/23 07:37 Dose: 1 puff Documented By: SHRUTHI Furosemide (Furosemide 40 Mg Tablet) 80 mg PO DAILY [facility]; Protocol Last Admin: 04/11/23 09:37 Dose: 80 mg Documented By: ALPHONSO Glucose (Glucose Gel 15 Gm Gel..Gram.) 15 gm PO Q15M PRN; Protocol PRN Reason: per Hypoglycemia Standing Ord. Insulin Human Lispro (Insulin Lispro 100 Unit/Ml 3 Ml Vial) 0 unit SUBCUT QIDACHS [facility]; Protocol Last Admin: 04/11/23 12:30 Dose: Not Given Documented By: ALPHONSO Non-Admin Reason: No Insulin Coverage Labetalol HCl (Labetalol Hcl 100 Mg Tablet) 100 mg PO BID [facility]; Protocol Last Admin: 04/11/23 09:37 Dose: 100 mg Documented By: ALPHONSO Lidocaine HCl (Lidocaine Hcl 1 % Mpf 5 Ml Vial) 5 ml SUBCUT ONCE ONE Stop: 04/11/23 14:20 Last Admin: 04/11/23 14:19 Dose: 5 ml Documented By: LEON Lisinopril (Lisinopril 10 Mg Tablet) 10 mg PO DAILY [facility]; Protocol Last Admin: 04/11/23 09:37 Dose: 10 mg Documented By: ALPHONSO Nifedipine (Nifedipine Er 60 Mg Tab.Er.24) 60 mg PO BID [facility]; Protocol Last Admin: 04/11/23 09:37 Dose: 60 mg Documented By: ALPHONSO Non-Formulary Medication (Sucroferric Oxyhydroxide [Velphoro]) 500 mg PO TID [facility] Oxycodone HCl (Oxycodone Hcl Immed Release 5 Mg Tablet) 5 mg PO Q6H PRN PRN Reason: Pain, Severe (Pain Scale 7-10) Last Admin: 04/11/23 12:29 Dose: 5 mg Documented By: ALPHONSO Pregabalin (Pregabalin 75 Mg Capsule) 75 mg PO DAILY [facility] Last Admin: 04/11/23 09:37 Dose: 75 mg Documented By: ALPHONSO Senna/Docusate Sodium (Sennosides/Docusate Sodium Tablet) 1 tab PO DAILY PRN PRN Reason: Constipation Sodium Chloride (0.9 % Sodium Chloride Flush 3 Ml Syringe) 3 ml IVFLUSH QSHIFT [facility] Last Admin: 02/06/24 09:39 Dose: 3 ml Documented By: ALPHONSO Labs 04/10/23 12:56 04/10/23 12:56 Labs: Laboratory Results - last 24 hr 04/11/23 04/11/23 04/11/23 04:48 07:23 12:23 Hold Purple Top SEE NOTE POC Glucose 128 H 103 Phosphorus 7.6 H Assessment and Plan (1) Hypoxic respiratory failure: Status: Acute (2) Pleural effusion: Status: Acute Plan 67 years old man admitted with: Hypoxemic respiratory failure -etiology unclear-multifactorial( chf-etiology unclear ,esrd ) Continue supplemental oxygen to keep oxygen saturation above 90%. IR consult for thoracentesis-added pleural fluid labs. Aspirin on hold (not longer taking Eliquis). Check echocardiogram. Continue Lasix. Esrd on HD- Continue Velphoro. Renal diet. Nephrology consult for inpatient hemodialysis. Elevated troponin. Likely secondary to end-stage renal disease. Doubt ACS. Recheck troponin in the morning. Check echocardiogram. Essential hypertension. Continue lisinopril, nifedipine and labetalol. Neuropathy. Continue pregabalin. Gout. Continue allopurinol. Type 2 diabetes mellitus. Patient stated that his BG has been very low lately. Will hold Lantus for now. Diabetic diet. Blood glucose monitoring before meals at bedtime. Anemia. Chronic. Continue to monitor hemoglobin. Hyperlipidemia. Continue statin. Obstructive sleep apnea. Hx of noncompliance with CPAP treatment. DVT prophylaxis: SCDs only (possible thoracentesis) ongoing hospitalization need for hypoxic respiratory failure secondary to right pleural effusion treatment with supplemental oxygen and evaluation by IR for possible thoracentesis,pleural fluid workup. Quality Stroke Does the patient have a stroke diagnosis?: No VTE Prior VTE?: No VTE Risk Level:: Medical - moderate - high VTE Device Contraindication: N/A - Device Ordered VTE Drug Contraindication: Treatment Not Indicated
[2023-04-11 15:08] LABS: BF Shift QC OK YES; Man Diluent Bkgrd OK YES; RBC Pleural Fluid < 0.002 X10*6/uL; WBC Pleural Fluid 0.396 X10*3/uL
[2023-04-11 15:09] LABS: MN% 97.1 %; PMN% 2.9 %
[2023-04-11 15:36] LABS: Eosinophils Pleural Fluid 1 %; Lymphocytes Pleural Fluid 19 %; Monocytes Pleural Fluid 13 %; Neutrophils Pleural Fluid 1 %; Other Cells Plerual Fl 66 %
[2023-04-11 17:00] LABS: Glucose, Whole Blood 187 mg/dL (60-115)
--- NOTE | 2023-04-11 17:24 | PC.NURSE ---
declined insulin stating he does not need it if BS is less than 200
[2023-04-11 17:41] LABS: pH Pleural Fluid 7.35
[2023-04-11 18:45] LABS: Albumin Pleural Fluid 2.2 GM/DL; Glucose Pleural Fluid 156 MG/DL; Total Protein Pleural Fluid 2.9 GM/DL
--- NOTE | 2023-04-11 18:45 | PC.NURSE ---
Alert and oriented, ate well for dinner, vss, reports breathing better after fluid was removed from lungs earlier today
[2023-04-11 20:00] VITALS: BP 151/67; PULSE 73; RESP 20; TEMP 36.6; O2SAT 93
[2023-04-11 20:34] LABS: Glucose, Whole Blood 267 mg/dL (60-115)
[2023-04-11] MEDS: Doxazosin Mesylate 2 MG TABLET 4 MG PO (21:28)
[2023-04-11] MEDS: Insulin Lispro 100 UNIT/ML 3 ML VIAL SUBCUT (21:28)
[2023-04-11 23:12] VITALS: BMI 33.2
[2023-04-11 23:21] VITALS: BP 139/60; PULSE 65; RESP 18; TEMP 36.6; O2SAT 94
[2023-04-12] VITALS (8 sets, daily range): BP systolic 135–157; BP diastolic 58–70; PULSE 62–68; RESP 16–20; TEMP 36.2–36.8; O2SAT 85–98
[2023-04-12 07:00] LABS: Glucose, Whole Blood 134 mg/dL (60-115)
[2023-04-12] MEDS: Fluticasone/Umeclidinium/Vilanterol 200/62.5/25 BLST.W.DEV 1 PUFF INHALE (08:11)
[2023-04-12] MEDS: Pregabalin 75 MG CAPSULE PO (09:01)
[2023-04-12] MEDS: Omeprazole 20 MG CAPSULE.DR PO (09:01)
[2023-04-12] MEDS: Furosemide 40 MG TABLET 80 MG PO (09:02)
[2023-04-12] MEDS: NIFEdipine ER 60 MG TAB.ER.24 PO ×2 (09:02→20:21)
[2023-04-12] MEDS: Aspirin Enteric Coated 81 MG TABLET.DR PO (09:02)
[2023-04-12] MEDS: Labetalol HCL 100 MG TABLET PO (09:02)
[2023-04-12] MEDS: lisinopriL 10 MG TABLET PO (09:02)
[2023-04-12] MEDS: Atorvastatin Calcium 40 MG TABLET PO (09:02)
[2023-04-12] MEDS: 0.9 % Sodium Chloride Flush 3 ML SYRINGE IVFLUSH ×3 (09:02→20:21)
[2023-04-12] MEDS: Acetaminophen 325 MG TABLET 650 MG PO ×2 (09:03→16:15)
[2023-04-12] MEDS: oxyCODONE HCl Immed Release 5 MG TABLET PO ×2 (09:04→20:20)
[2023-04-12 10:26] LABS: Blood Urea Nitrogen 66 mg/dL (9-16); Calcium 8.4 mg/dL (8.4-10.2); Estimated Glomerular Filt Rate 5; Glucose Random 186 mg/dL (60-115)
--- NOTE | 2023-04-12 10:29 | PM.CNCAR ---
History of Present Illness History of Present Illness Date of Service: 04/12/23 Chief complaint: Hypoxic respiratory failure Narrative: This is a patient with ESRD on hemodialysis. Multiple medical comorbidities including diabetes, hypertension dyslipidemia. Is presenting complaint is mainly shortness of breath for the last few days. He states that generally okay but could not breathe recently and hence that led to the visit. He is also having some isolated chest pains. From the cardiac standpoint, he underwent an echocardiogram and that shows significant LV dysfunction and hence we are consulted. However, patient states that he never had cardiac issues before he denies specifically any chest pain of anginal types or myocardial infarction or cardiomyopathy or in fact anything cardiac sounding at all. He states he was actually doing okay till this admission. However, I am not entirely clear with this comorbidities if this was accurate or if he is missing some information. By his bed, there is a walker. When asked him feels that, he states not all the time. Review of Systems Review of Systems: Yes all other systems are reviewed and are negative Constitutional: Constitutional: Reports as per HPI and Reports no additional constitutional complaints Eyes: Eyes: Reports as per HPI and Denies no additional eye complaints ENT: Denies system reviewed and no additional complaints, except as documented and Reports as per HPI Cardiovascular: Cardiovascular: Reports as per HPI, Reports no additional cardiovascular complaints, Denies acrocyanosis, Denies cool extremities, Denies chest pain, Denies leg edema, Denies lightheadedness, Denies palpitations and Reports dyspnea Respiratory: Respiratory: Reports as per HPI, Denies no additional respiratory complaints and Reports dyspnea Gastrointestinal: Gastrointestinal: Reports as per HPI and Denies no additional gastrointestinal complaints Genitourinary: Genitourinary: Reports no additional male genitourinary complaints and Reports as per HPI Musculoskeletal: Musculoskeletal: Reports no additional musculoskeletal complaints and Reports as per HPI Integumentary/Breasts: Skin/Breast: Reports system reviewed and no additional complaints, except as docu Neurologic: Reports system reviewed and no additional complaints, except as documented and Reports as per HPI Psychiatric: Psychiatric: Reports no additional psychiatric complaints and Reports as per HPI Endocrine: Endocrine: Reports no additional endocrine complaints, Reports as per HPI and Denies palpitations Hematologic/Lymphatic: Hematologic/Lymphatic: Reports no additional hematologic/lymphatic complaints and Reports as per HPI Allergic/Immunologic: Allergic/Immunologic: Reports no additional allergic/immunologic complaints and Reports as per HPI PMFSH Past Medical History Medical History (Updated 04/12/23 @ 10:33 by Jerad Severino MD) Anemia ESRD (end stage renal disease) Occlusive thrombus Pulmonary edema Noncompliance with CPAP treatment ROBERT (obstructive sleep apnea) Type 2 diabetes mellitus Hyperlipidemia Hypertension 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 Mother No problems noted. Social History Social History Household Members: Family Housing: House Do you presently have visiting nurse or other home services: No Alcohol intake: never Comment: Patient is noncompliant with ringing for assistance Patient Tobacco Use Status: Former Tobacco user service: No Meds Allergies Allergy/AdvReac Type Severity Reaction Status Date / Time No Known Allergies Allergy Verified 09/28/22 11:38 Active Medications: Current Medications Acetaminophen (Acetaminophen 325 Mg Tablet) 650 mg PO Q6H PRN PRN Reason: Pain, Mild (Pain Scale 1-3) Last Admin: 04/12/23 09:03 Dose: 650 mg Albuterol Sulfate (Albuterol Sulfate 90 Mcg 8 Gm Inhaler) 2 puff INHALE Q4H PRN PRN Reason: Shortness Of Breath Allopurinol (Allopurinol 100 Mg Tablet) 100 mg PO MOWEFR@1600 [facility] Aspirin (Aspirin Enteric Coated 81 Mg Tablet.) 81 mg PO DAILY [facility] Last Admin: 04/12/23 09:02 Dose: 81 mg Atorvastatin Calcium (Atorvastatin Calcium 40 Mg Tablet) 40 mg PO DAILY [facility] Last Admin: 04/12/23 09:02 Dose: 40 mg Dextrose (Dextrose 50 % 25 Gm/50 Ml Syringe) 25 gm IVPUSH Q15M PRN; Protocol PRN Reason: per Hypoglycemia Standing Ord. Doxazosin Mesylate (Doxazosin Mesylate 2 Mg Tablet) 4 mg PO BEDTIME [facility]; Protocol Last Admin: 04/11/23 21:28 Dose: 4 mg Fluticasone/Umeclidinium/Vilanterol (Fluticasone/Umeclidinium/Vilanterol 200/62.5/25 Blst.W.Dev) 1 puff INHALE RDAILY [facility] Last Admin: 04/12/23 08:11 Dose: 1 puff Furosemide (Furosemide 40 Mg Tablet) 80 mg PO DAILY [facility]; Protocol Last Admin: 04/12/23 09:02 Dose: 80 mg Glucose (Glucose Gel 15 Gm Gel..Gram.) 15 gm PO Q15M PRN; Protocol PRN Reason: per Hypoglycemia Standing Ord. Insulin Human Lispro (Insulin Lispro 100 Unit/Ml 3 Ml Vial) 0 unit SUBCUT QIDACHS [facility]; Protocol Last Admin: 04/12/23 07:36 Dose: Not Given Labetalol HCl (Labetalol Hcl 100 Mg Tablet) 100 mg PO BID [facility]; Protocol Last Admin: 04/12/23 09:02 Dose: 100 mg Lisinopril (Lisinopril 10 Mg Tablet) 10 mg PO DAILY [facility]; Protocol Last Admin: 04/12/23 09:02 Dose: 10 mg Nifedipine (Nifedipine Er 60 Mg Tab.Er.24) 60 mg PO BID [facility]; Protocol Last Admin: 04/12/23 09:02 Dose: 60 mg Non-Formulary Medication (Sucroferric Oxyhydroxide [Velphoro]) 500 mg PO TID [facility] Omeprazole (Omeprazole 20 Mg Capsule.Dr) 20 mg PO DAILY@0630 [facility] Last Admin: 04/12/23 09:01 Dose: 20 mg Oxycodone HCl (Oxycodone Hcl Immed Release 5 Mg Tablet) 5 mg PO Q6H PRN PRN Reason: Pain, Severe (Pain Scale 7-10) Last Admin: 04/12/23 09:04 Dose: 5 mg Polyethylene Glycol (Polyethylene Glycol 3350 17 Gm Powd.Pack) 17 gm PO DAILY PRN PRN Reason: Constipation Pregabalin (Pregabalin 75 Mg Capsule) 75 mg PO DAILY [facility] Last Admin: 04/12/23 09:01 Dose: 75 mg Senna/Docusate Sodium (Sennosides/Docusate Sodium Tablet) 1 tab PO DAILY PRN PRN Reason: Constipation Sodium Chloride (0.9 % Sodium Chloride Flush 3 Ml Syringe) [facility] Last Admin: 04/12/23 09:02 Dose: 3 ml Home Medications Medication Instructions Recorded Confirmed Last Taken Type albuterol sulfate 90 mcg/actuation 2 puff inhalation Q4H PRN 04/19/22 04/10/23 Unknown History aerosol inhaler Shortness Of Breath allopurinol 100 mg tablet 100 mg PO MOWEFR@1600 04/19/22 04/10/23 04/18/22 History apixaban 5 mg tablet (Eliquis) 5 mg PO BID 04/19/22 04/19/22 04/19/22 History aspirin 81 mg tablet,delayed 81 mg PO DAILY 04/19/22 04/10/23 04/19/22 History release atorvastatin 40 mg tablet 40 mg PO DAILY 04/19/22 04/10/23 04/19/22 History carvedilol 3.125 mg tablet 3.125 mg PO BID 04/19/22 04/11/23 04/19/22 History doxazosin 4 mg tablet 4 mg PO BEDTIME 04/19/22 04/10/23 04/18/22 History furosemide 80 mg tablet 80 mg PO DAILY 04/19/22 04/10/23 04/19/22 History hydralazine 25 mg tablet 25 mg PO TID 04/19/22 04/19/22 04/19/22 History ipratropium 0.5 mg-albuterol 3 mg 3 ml inhalation Q4H PRN Wheezing 04/19/22 04/10/23 Unknown History (2.5 mg base)/3 mL nebulization soln omeprazole 20 mg capsule,delayed 20 mg PO DAILY 04/19/22 04/10/23 04/19/22 History release polyethylene glycol 3350 17 17 g PO DAILY PRN Constipation 04/19/22 04/10/23 Unknown History gram/dose oral powder pregabalin 75 mg capsule 75 mg PO DAILY 04/19/22 04/10/23 04/19/22 History sennosides 8.6 mg-docusate sodium 1 tab PO DAILY PRN Constipation 04/19/22 04/10/23 04/19/22 History 50 mg tablet (Senna-Time S) sevelamer carbonate 800 mg tablet 1,600 mg PO TIDWM 04/19/22 04/19/22 04/19/22 History fluticasone fur. 200 mcg-umeclid 1 ea inhalation DAILY 04/10/23 04/10/23 Unknown History 62.5 mcg-vilant 25 mcg inhalat.powder (Trelegy Ellipta) insulin glargine 100 unit/mL (3 34 unit subcut BEDTIME 04/10/23 04/10/23 Unknown History mL) subcutaneous pen (Lantus Solostar U-100 Insulin) insulin lispro 100 unit/mL 6 unit subcut TID 04/10/23 04/10/23 Unknown History subcutaneous pen labetalol 100 mg tablet 100 mg PO BID 04/10/23 04/10/23 Unknown History lisinopril 10 mg tablet 10 mg PO DAILY 04/10/23 04/10/23 Unknown History nifedipine 60 mg tablet,extended 60 mg PO BID 04/10/23 04/10/23 Unknown History release 24 hr sucroferric oxyhydroxide 500 mg 500 mg PO TID 04/10/23 04/10/23 Unknown History chewable tablet (Velphoro) acetaminophen 500 mg tablet (Pain 500 mg PO Q4H PRN Pain 04/11/23 04/11/23 Unknown History Relief Extra Strength (acetaminophen)) Physical Exam Vital Signs: Vital Signs: Last Vital Signs Temp 98.3 F 04/12/23 06:58 Pulse 65 04/12/23 08:12 Resp 18 04/12/23 08:12 BP 157/70 H 04/12/23 06:58 Pulse Ox 95 04/12/23 06:58 O2 Del Method Nasal Cannula 04/12/23 06:58 O2 Flow Rate 1 04/12/23 06:58 BMI result Body Mass Index 33.2 Const: General: comfortable and no acute distress Orientation/consciousness: patient oriented x3 HEENT: Other: Unremarkable Head: Yes normal to inspection Neck: Neck: Yes normal visual inspection Chest: Chest palpation & inspection: normal inspection of the chest Resp: Auscultation: crackles Cardio: Palpation: normal PMI Heart sounds: S1 normal heart sound present, S2 normal heart sound present, no gallops, Murmur heart sound present systolic II/ and no rubs GI: Palpation (GI): Soft to palpation Back/Spine/Pelvis: Other: unremarkable Skin: General skin exam: no rashes or lesions noted Neuro: General: patient oriented x3 Extrem: General: Yes normal to inspection Psych: Mental Status: mental status grossly normal Objective Labs and Meds 04/10/23 12:56 04/12/23 08:39 Lab results: Laboratory Results - last 24 hr 04/11/23 04/11/23 04/11/23 12:23 14:07 16:55 BUN Creatinine Estim Creat Clear Calc Estimated GFR POC Glucose 103 187 H Random Glucose Calcium Pleural pH 7.35 Pleural WBC 0.396 Pleural RBC < 0.002 Pleural Neutrophils 1 Pleural Lymphocytes 19 Pleural Monocytes 13 Pleural Eosinophils 1 Pleural Other Cells 66 Pleural Total Protein 2.9 Pleural Albumin 2.2 Pleural Glucose 156 04/11/23 04/12/23 04/12/23 20:20 06:54 08:39 BUN 66 H Creatinine 10.30 H* Estim Creat Clear Calc 7.0 Estimated GFR 5 POC Glucose 267 H 134 H Random Glucose 186 H Calcium 8.4 Pleural pH Pleural WBC Pleural RBC Pleural Neutrophils Pleural Lymphocytes Pleural Monocytes Pleural Eosinophils Pleural Other Cells Pleural Total Protein Pleural Albumin Pleural Glucose ECG Interpretation: EKG with sinus rhythm at 64/Min; voltage criteria for LVH;. Imaging Radiologist's impression: Impressions Thoracentesis Ultrasound 04/11/23 14:25 IMPRESSION: Thoracentesis with 1600 ML of fluid drained. The fluid was sent for analysis. Chest X-Ray 04/11/23 14:45 IMPRESSION: No pneumothorax post right thoracentesis. Small right pleural effusion decreased from yesterday's exam. Assessment and Plan (1) Acute on chronic systolic and diastolic heart failure, NYHA class 3: Status: Acute (2) ESRD on dialysis: Status: Acute Plan Echocardiogram with LVEF of 35%. Moderate diastolic dysfunction. Moderately depressed right ventricular systolic function. Mild pulmonary hypertension. Most recent creatinine is 10.3. High sensitive troponin levels are in the 50s. Cardiac BNP at around 3200 and 2400. Overall, significant cardiac dysfunction, both right ventricular and left ventricular and ESRD/dialysis; many comorbidities. We can optimize meds as much possible. We can use carvedilol instead of labetalol. Can check with Nephrology and if no concerns, then switch lisinopril to Entresto. They can also recommend if okay to start Jardiance. Discussed with Dr. Reid. Procedures Date of Service Date of Service: 04/12/23
[2023-04-12 10:48] LABS: Anion Gap 23 (12-20); Carbon Dioxide 22 mmol/L (22-29); Chloride 101 mmol/L (96-108); Potassium 5.6 mmol/L (3.3-5.1); Sodium 140 mmol/L (135-145)
[2023-04-12 11:13] LABS: Glucose, Whole Blood 219 mg/dL (60-115)
[2023-04-12 16:06] LABS: Glucose, Whole Blood 200 mg/dL (60-115)
[2023-04-12] MEDS: allopurinoL 100 MG TABLET PO (16:14)
[2023-04-12] MEDS: Insulin Lispro 100 UNIT/ML 3 ML VIAL SUBCUT ×2 (16:14→20:23)
--- NOTE | 2023-04-12 17:03 | P.PNIM_ITS ---
Subjective Subjective Date of Service: 04/12/23 Interval History: Acute hypoxemic respiratory failure Review of Systems Shortness of breaths is seems to be improving. No cough or fever or sputum Physical Exam 2 Vital Signs: Vital Signs: Last Vital Signs Temp 98.0 F 04/12/23 15:05 Pulse 62 04/12/23 15:05 Resp 20 04/12/23 15:05 BP 135/58 L 04/12/23 15:05 Pulse Ox 85 L 04/12/23 15:34 O2 Del Method Room Air 04/12/23 15:34 O2 Flow Rate 1 04/12/23 06:58 BMI result Body Mass Index 33.2 Appearance: Alert.? Oriented X3.? not in distress.? cvs: [id number], [id number] , no murmur res: air entry improving ,still somewhat diminshed t bases right>left. abd: no rebound or guarding ,nt, bs present. ext pulses present , no cyanosis . neuro: axo3 , nonfocal. Objective Data Active Medications Acetaminophen (Acetaminophen 325 Mg Tablet) 650 mg PO Q6H PRN PRN Reason: Pain, Mild (Pain Scale 1-3) Last Admin: 04/12/23 16:15 Dose: 650 mg Documented By: TRI Albuterol Sulfate (Albuterol Sulfate 90 Mcg 8 Gm Inhaler) 2 puff INHALE Q4H PRN PRN Reason: Shortness Of Breath Allopurinol (Allopurinol 100 Mg Tablet) 100 mg PO MOWEFR@1600 [facility] Last Admin: 04/12/23 16:14 Dose: 100 mg Documented By: TRI Aspirin (Aspirin Enteric Coated 81 Mg Tablet.) 81 mg PO DAILY [facility] Last Admin: 04/12/23 09:02 Dose: 81 mg Documented By: TRI Atorvastatin Calcium (Atorvastatin Calcium 40 Mg Tablet) 40 mg PO DAILY [facility] Last Admin: 04/12/23 09:02 Dose: 40 mg Documented By: TRI Dextrose (Dextrose 50 % 25 Gm/50 Ml Syringe) 25 gm IVPUSH Q15M PRN; Protocol PRN Reason: per Hypoglycemia Standing Ord. Doxazosin Mesylate (Doxazosin Mesylate 2 Mg Tablet) 4 mg PO BEDTIME [facility]; Protocol Last Admin: 04/11/23 21:28 Dose: 4 mg Documented By: ELISEO Fluticasone/Umeclidinium/Vilanterol (Fluticasone/Umeclidinium/Vilanterol 200/62.5/25 Blst.W.Dev) 1 puff INHALE RDAILY [facility] Last Admin: 04/12/23 08:11 Dose: 1 puff Documented By: SHRUTHI Furosemide (Furosemide 40 Mg Tablet) 80 mg PO DAILY [facility]; Protocol Last Admin: 04/12/23 09:02 Dose: 80 mg Documented By: TRI Glucose (Glucose Gel 15 Gm Gel..Gram.) 15 gm PO Q15M PRN; Protocol PRN Reason: per Hypoglycemia Standing Ord. Insulin Human Lispro (Insulin Lispro 100 Unit/Ml 3 Ml Vial) 0 unit SUBCUT QIDACHS [facility]; Protocol Last Admin: 04/12/23 16:14 Dose: 2 unit Documented By: TRI Labetalol HCl (Labetalol Hcl 100 Mg Tablet) 100 mg PO BID [facility]; Protocol Last Admin: 04/12/23 09:02 Dose: 100 mg Documented By: TRI Lisinopril (Lisinopril 10 Mg Tablet) 10 mg PO DAILY [facility]; Protocol Last Admin: 04/12/23 09:02 Dose: 10 mg Documented By: TRI Nifedipine (Nifedipine Er 60 Mg Tab.Er.24) 60 mg PO BID [facility]; Protocol Last Admin: 04/12/23 09:02 Dose: 60 mg Documented By: TRI Non-Formulary Medication (Sucroferric Oxyhydroxide [Velphoro]) 500 mg PO TID [facility] Omeprazole (Omeprazole 20 Mg Capsule.Dr) 20 mg PO DAILY@0630 [facility] Last Admin: 04/12/23 09:01 Dose: 20 mg Documented By: TRI Oxycodone HCl (Oxycodone Hcl Immed Release 5 Mg Tablet) 5 mg PO Q6H PRN PRN Reason: Pain, Severe (Pain Scale 7-10) Last Admin: 04/12/23 09:04 Dose: 5 mg Documented By: TRI Polyethylene Glycol (Polyethylene Glycol 3350 17 Gm Powd.Pack) 17 gm PO DAILY PRN PRN Reason: Constipation Pregabalin (Pregabalin 75 Mg Capsule) 75 mg PO DAILY [facility] Last Admin: 04/12/23 09:01 Dose: 75 mg Documented By: TRI Senna/Docusate Sodium (Sennosides/Docusate Sodium Tablet) 1 tab PO DAILY PRN PRN Reason: Constipation Sodium Chloride (0.9 % Sodium Chloride Flush 3 Ml Syringe) 3 ml IVFLUSH QSHIFT [facility] Last Admin: 04/12/23 16:14 Dose: 3 ml Documented By: TRI Labs 04/10/23 12:56 04/12/23 08:39 Labs: Laboratory Results - last 24 hr 04/11/23 04/11/23 04/12/23 14:07 20:20 06:54 Anion Gap Estim Creat Clear Calc Estimated GFR POC Glucose 267 H 134 H Random Glucose Calcium Fl Pathologist Review SEE NOTE Pleural pH 7.35 Pleural Total Protein 2.9 Pleural Albumin 2.2 Pleural Glucose 156 04/12/23 04/12/23 04/12/23 08:39 11:08 16:02 Anion Gap 23 H Estim Creat Clear Calc 7.0 Estimated GFR 5 POC Glucose 219 H 200 H Random Glucose 186 H Calcium 8.4 Fl Pathologist Review Pleural pH Pleural Total Protein Pleural Albumin Pleural Glucose Microbiology Microbiology Results: Microbiology 04/11/23 14:07 Gram Stain - Final Pleural Fluid Routine Culture - Preliminary No growth to date. Anaerobic Culture - Preliminary No growth to date. Assessment and Plan (1) ESRD on dialysis: Status: Acute (2) Acute on chronic systolic and diastolic heart failure, NYHA class 3: Status: Acute (3) Hypoxic respiratory failure: Status: Acute Plan 67 years old man admitted with: Hypoxemic respiratory failure -etiology unclear-multifactorial( chf-etiology unclear ,esrd ) Continue supplemental oxygen to keep oxygen saturation above 90%. IR consult for thoracentesis-added pleural fluid labs. Aspirin on hold (not longer taking Eliquis). Check echocardiogram: ef low in 30% Continue Lasix,Seen by Cardiology: Will switch labetalol to Coreg. May also need to consider switching lisinopril to Entresto if if okay with Nephrology,consider to start Jardiance. b/l lymph nodes on ct neck: Discussed with oncology and pulmonology recommended outpatient workup and management according Esrd on HD- Continue Velphoro. Renal diet. Nephrology consult for inpatient hemodialysis. Elevated troponin. Likely secondary to end-stage renal disease. Doubt ACS. Recheck troponin in the morning. Check echocardiogram. Essential hypertension. Continue lisinopril, nifedipine and labetalol. Neuropathy. Continue pregabalin. Gout. Continue allopurinol. Type 2 diabetes mellitus. Patient stated that his BG has been very low lately. Will hold Lantus for now. Diabetic diet. Blood glucose monitoring before meals at bedtime. Anemia. Chronic. Continue to monitor hemoglobin. Hyperlipidemia. Continue statin. Obstructive sleep apnea. Hx of noncompliance with CPAP treatment. DVT prophylaxis: SCDs only (possible thoracentesis) ongoing hospitalization need for hypoxic respiratory failure secondary to right pleural effusion treatment with supplemental oxygen and evaluation by IR for possible thoracentesis,pleural fluid workup. Quality Stroke Does the patient have a stroke diagnosis?: No VTE Prior VTE?: No VTE Risk Level:: Medical - moderate - high VTE Device Contraindication: N/A - Device Ordered VTE Drug Contraindication: Treatment Not Indicated
[2023-04-12 20:19] LABS: Glucose, Whole Blood 195 mg/dL (60-115)
[2023-04-12] MEDS: Doxazosin Mesylate 2 MG TABLET 4 MG PO (20:20)
[2023-04-12] MEDS: carvediloL 12.5 MG TABLET PO (20:21)
--- NOTE | 2023-04-12 21:47 | P.PNNP_ITS ---
Subjective Subjective Date of Service: 04/12/23 Interval history: Acute hypoxemic respiratory failure Physical Exam 2 Vital Signs: Vital Signs: Last Vital Signs Temp 97.2 F 04/12/23 19:24 Pulse 64 04/12/23 19:24 Resp 16 04/12/23 19:24 BP 135/60 04/12/23 19:24 Pulse Ox 93 04/12/23 19:24 O2 Del Method Nasal Cannula 04/12/23 19:24 O2 Flow Rate 1 04/12/23 19:24 BMI result Body Mass Index 33.2 cvs; s1s2 Rs; Rt side ae diminished? ABd; soft? Objective Data Labs 04/10/23 12:56 04/12/23 08:39 Labs: Laboratory Results - last 24 hr 04/11/23 04/12/23 04/12/23 14:07 06:54 08:39 Sodium 140 Potassium 5.6 H D Chloride 101 Carbon Dioxide 22 Anion Gap 23 H BUN 66 H Creatinine 10.30 H* Estim Creat Clear Calc 7.0 Estimated GFR 5 POC Glucose 134 H Random Glucose 186 H Calcium 8.4 Fl Pathologist Review SEE NOTE 04/12/23 04/12/23 04/12/23 11:08 16:02 20:16 Sodium Potassium Chloride Carbon Dioxide Anion Gap BUN Creatinine Estim Creat Clear Calc Estimated GFR POC Glucose 219 H 200 H 195 H Random Glucose Calcium Fl Pathologist Review Microbiology Microbiology Results: Microbiology 04/11/23 14:07 Pleural Fluid Gram Stain - Final 04/11/23 14:07 Pleural Fluid Routine Culture - Preliminary No growth to date. 04/11/23 14:07 Pleural Fluid Anaerobic Culture - Preliminary No growth to date. Procedures Date of Service Date of Service: 04/12/23 Assessment & Plan Assessment and plan (1) ESRD on dialysis: Status: Acute (2) Hypoxic respiratory failure: Status: Acute (3) Pleural effusion: Status: Acute Plan s/p HD usually has HD M-W- [address] dialysis- first shift non adherence with h/o terminating treatments early last dialysed at his unit on 04/10 REC HD MWF schedule optimize volume status improve adherence agree with IR thoracentesis cardiology eval for chf- agree with change of labetalol to coreg and lisinopril to entresto no need for NAYE (Hb > 11) phosphate binders renal diet Time Spent With Patient Time: Total time managing care of this patient today ____ minutes. Progress Note: Quality Stroke Does the patient have a stroke diagnosis?: No
[2023-04-13] VITALS (10 sets, daily range): BP systolic 129–177; BP diastolic 60–77; PULSE 66–71; RESP 18–20; TEMP 36.3–37.1; O2SAT 80–98; BMI 30.9
[2023-04-13] MEDS: oxyCODONE HCl Immed Release 5 MG TABLET 7.5 MG PO ×3 (01:57→17:54)
[2023-04-13] MEDS: Acetaminophen 325 MG TABLET 650 MG PO ×2 (04:26→21:43)
[2023-04-13] MEDS: Omeprazole 20 MG CAPSULE.DR PO (05:56)
[2023-04-13] MEDS: Fluticasone/Umeclidinium/Vilanterol 200/62.5/25 BLST.W.DEV 1 PUFF INHALE (07:40)
[2023-04-13 08:56] LABS: Glucose, Whole Blood 96 mg/dL (60-115)
[2023-04-13] MEDS: Atorvastatin Calcium 40 MG TABLET PO (08:58)
[2023-04-13] MEDS: Pregabalin 75 MG CAPSULE PO (08:58)
[2023-04-13] MEDS: carvediloL 12.5 MG TABLET PO ×2 (08:58→21:42)
[2023-04-13] MEDS: Aspirin Enteric Coated 81 MG TABLET.DR PO (08:58)
[2023-04-13] MEDS: NIFEdipine ER 60 MG TAB.ER.24 PO ×2 (08:58→21:41)
[2023-04-13] MEDS: 0.9 % Sodium Chloride Flush 3 ML SYRINGE IVFLUSH ×2 (08:59→16:54)
[2023-04-13] MEDS: Furosemide 40 MG TABLET 80 MG PO (08:59)
[2023-04-13 11:09] LABS: Glucose, Whole Blood 246 mg/dL (60-115)
[2023-04-13] MEDS: Insulin Lispro 100 UNIT/ML 3 ML VIAL SUBCUT ×2 (11:56→16:54)
--- NOTE | 2023-04-13 14:59 | HO.PM.IMPN ---
Subjective Subjective Date of Service: 04/13/23 Interval History: hypoxemic respiratory failure Review of Systems Shortness of breath and saturation somewhat improving No cough or phlegm Physical Exam Vital Signs: Vital Signs: Last Vital Signs Temp 98.1 F 04/13/23 11:03 Pulse 67 04/13/23 11:03 Resp 20 04/13/23 11:03 BP 161/71 H 04/13/23 11:03 Pulse Ox 90 L 04/13/23 12:03 O2 Del Method Nasal Cannula 04/13/23 12:03 O2 Flow Rate 2 04/13/23 11:03 Oxygen Flow Rate 1 04/13/23 12:03 BMI result Body Mass Index 30.9 Appearance: Alert.? Oriented X3.? not in distress.? cvs: [id number], [id number] , no murmur res: air entry improving ,still somewhat diminshed t bases right>left. abd: no rebound or guarding ,nt, bs present. ext pulses present , no cyanosis . neuro: axo3 , nonfocal. Objective Data Active Medications Acetaminophen (Acetaminophen 325 Mg Tablet) 650 mg PO Q6H PRN PRN Reason: Pain, Mild (Pain Scale 1-3) Last Admin: 04/13/23 04:26 Dose: 650 mg Documented By: JOSE JUAN Albuterol Sulfate (Albuterol Sulfate 90 Mcg 8 Gm Inhaler) 2 puff INHALE Q4H PRN PRN Reason: Shortness Of Breath Allopurinol (Allopurinol 100 Mg Tablet) 100 mg PO MOWEFR@1600 [facility] Last Admin: 04/12/23 16:14 Dose: 100 mg Documented By: TRI Aspirin (Aspirin Enteric Coated 81 Mg Tablet.) 81 mg PO DAILY [facility] Last Admin: 04/13/23 08:58 Dose: 81 mg Documented By: STEVEN Atorvastatin Calcium (Atorvastatin Calcium 40 Mg Tablet) 40 mg PO DAILY [facility] Last Admin: 04/13/23 08:58 Dose: 40 mg Documented By: STEVEN Carvedilol (Carvedilol 12.5 Mg Tablet) 12.5 mg PO BID [facility]; Protocol Last Admin: 04/13/23 08:58 Dose: 12.5 mg Documented By: STEVEN Dextrose (Dextrose 50 % 25 Gm/50 Ml Syringe) 25 gm IVPUSH Q15M PRN; Protocol PRN Reason: per Hypoglycemia Standing Ord. Doxazosin Mesylate (Doxazosin Mesylate 2 Mg Tablet) 4 mg PO BEDTIME [facility]; Protocol Last Admin: 04/12/23 20:20 Dose: 4 mg Documented By: JOSE JUAN Fluticasone/Umeclidinium/Vilanterol (Fluticasone/Umeclidinium/Vilanterol 200/62.5/25 Blst.W.Dev) 1 puff INHALE RDAILY [facility] Last Admin: 04/13/23 07:40 Dose: 1 puff Documented By: EVENS Furosemide (Furosemide 40 Mg Tablet) 80 mg PO DAILY [facility]; Protocol Last Admin: 04/13/23 08:59 Dose: 80 mg Documented By: STEVEN Glucose (Glucose Gel 15 Gm Gel..Gram.) 15 gm PO Q15M PRN; Protocol PRN Reason: per Hypoglycemia Standing Ord. Insulin Human Lispro (Insulin Lispro 100 Unit/Ml 3 Ml Vial) 0 unit SUBCUT QIDACHS [facility]; Protocol Last Admin: 04/13/23 11:56 Dose: 4 unit Documented By: KEITH Nifedipine (Nifedipine Er 60 Mg Tab.Er.24) 60 mg PO BID [facility]; Protocol Last Admin: 04/13/23 08:58 Dose: 60 mg Documented By: STEVEN Non-Formulary Medication (Sucroferric Oxyhydroxide [Velphoro]) 500 mg PO TID [facility] Omeprazole (Omeprazole 20 Mg Capsule.Dr) 20 mg PO DAILY@0630 [facility] Last Admin: 04/13/23 05:56 Dose: 20 mg Documented By: JOSE JUAN Oxycodone HCl (Oxycodone Hcl Immed Release 5 Mg Tablet) 7.5 mg PO Q6H PRN PRN Reason: Pain, Severe (Pain Scale 7-10) Last Admin: 04/13/23 08:59 Dose: 7.5 mg Documented By: STEVEN Polyethylene Glycol (Polyethylene Glycol 3350 17 Gm Powd.Pack) 17 gm PO DAILY PRN PRN Reason: Constipation Pregabalin (Pregabalin 75 Mg Capsule) 75 mg PO DAILY [facility] Last Admin: 04/13/23 08:58 Dose: 75 mg Documented By: STEVEN Senna/Docusate Sodium (Sennosides/Docusate Sodium Tablet) 1 tab PO DAILY PRN PRN Reason: Constipation Sodium Chloride (0.9 % Sodium Chloride Flush 3 Ml Syringe) 3 ml IVFLUSH QSHIFT [facility] Last Admin: 04/13/23 08:59 Dose: 3 ml Documented By: STEVEN Labs 04/10/23 12:56 04/12/23 08:39 Labs: Laboratory Results - last 24 hr 04/11/23 04/12/23 04/12/23 14:07 16:02 20:16 POC Glucose 200 H 195 H Fl Pathologist Review SEE NOTE 04/13/23 04/13/23 07:48 11:06 POC Glucose 96 246 H Fl Pathologist Review Microbiology Microbiology Results: Microbiology 04/11/23 14:07 Gram Stain - Final Pleural Fluid Routine Culture - Final No growth after 2 days Anaerobic Culture - Preliminary No growth to date. Assessment and Plan (1) ESRD on dialysis: Status: Acute (2) Acute on chronic systolic and diastolic heart failure, NYHA class 3: Status: Acute Plan 67 years old man admitted with: Hypoxemic respiratory failure -etiology unclear-multifactorial( chf-etiology unclear ,esrd ) Continue supplemental oxygen to keep oxygen saturation above 90%. IR consult for thoracentesis-added pleural fluid labs. Aspirin on hold (not longer taking Eliquis). Check echocardiogram: ef low in 30% Continue Lasix,Seen by Cardiology: Will switch labetalol to Coreg. May also need to consider switching lisinopril to Entresto if if okay with Nephrology,consider to start Jardiance. b/l lymph nodes on ct neck: Discussed with oncology and pulmonology recommended outpatient workup and management according Esrd on HD- Continue Velphoro. Renal diet. Nephrology consult for inpatient hemodialysis. Elevated troponin. Likely secondary to end-stage renal disease. Doubt ACS. Recheck troponin in the morning. Check echocardiogram. Essential hypertension. Continue lisinopril, nifedipine and labetalol. Neuropathy. Continue pregabalin. Gout. Continue allopurinol. Type 2 diabetes mellitus. Patient stated that his BG has been very low lately. Will hold Lantus for now. Diabetic diet. Blood glucose monitoring before meals at bedtime. Anemia. Chronic. Continue to monitor hemoglobin. Hyperlipidemia. Continue statin. Obstructive sleep apnea. Hx of noncompliance with CPAP treatment. DVT prophylaxis: SCDs only (possible thoracentesis) ongoing hospitalization need for hypoxic respiratory failure secondary to right pleural effusion treatment with supplemental oxygen ,Hd,also had cardic dysfunction low ef -need medication adjustment and exepert evaluation Quality Stroke Does the patient have a stroke diagnosis?: No VTE Prior VTE?: No VTE Risk Level:: Medical - moderate - high VTE Device Contraindication: N/A - Device Ordered VTE Drug Contraindication: Treatment Not Indicated
[2023-04-13 16:32] LABS: Glucose, Whole Blood 194 mg/dL (60-115)
[2023-04-13 20:43] LABS: Glucose, Whole Blood 138 mg/dL (60-115)
--- NOTE | 2023-04-13 21:12 | PM.PNNEP ---
Subjective Subjective Date of Service: 04/13/23 Interval history: hypoxemic respiratory failure Physical Exam Vital Signs: Vital Signs: Last Vital Signs Temp 98.6 F 04/13/23 19:31 Pulse 70 04/13/23 19:31 Resp 19 04/13/23 19:31 BP 135/60 04/13/23 19:31 Pulse Ox 93 04/13/23 19:31 O2 Del Method Nasal Cannula 04/13/23 19:31 O2 Flow Rate 1 04/13/23 19:31 Oxygen Flow Rate 1 04/13/23 12:03 BMI result Body Mass Index 30.9 cvs; s1s2 Rs; cta? ABd; soft? Objective Data Labs 04/10/23 12:56 04/12/23 08:39 Labs: Laboratory Results - last 24 hr 04/13/23 04/13/23 04/13/23 07:48 11:06 16:25 POC Glucose 96 246 H 194 H 04/13/23 20:38 POC Glucose 138 H Microbiology Microbiology Results: Microbiology 04/11/23 14:07 Pleural Fluid Gram Stain - Final 04/11/23 14:07 Pleural Fluid Routine Culture - Final No growth after 2 days 04/11/23 14:07 Pleural Fluid Anaerobic Culture - Preliminary No growth to date. Procedures Date of Service Date of Service: 04/13/23 Assessment & Plan Assessment and plan (1) ESRD on dialysis: Status: Acute (2) Hypoxic respiratory failure: Status: Acute (3) Pleural effusion: Status: Acute Plan usually has HD M-W-F at [facility] dialysis- first shift non adherence with h/o terminating treatments early last dialysed at his unit on 2/ REC HD MWF schedule optimize volume status improve adherence IR thoracentesis cardiology eval for chf- agree with change of labetalol to coreg and lisinopril to entresto as op no need for NAYE (Hb > 11) phosphate binders renal diet Time Spent With Patient Time: Total time managing care of this patient today ____ minutes. Progress Note: Quality Stroke Does the patient have a stroke diagnosis?: No
[2023-04-13] MEDS: Doxazosin Mesylate 2 MG TABLET 4 MG PO (21:42)
[2023-04-14] VITALS (8 sets, daily range): BP systolic 111–131; BP diastolic 53–68; PULSE 59–68; RESP 16–18; TEMP 36.4–37.1; O2SAT 94–96; BMI 30.9
[2023-04-14] MEDS: oxyCODONE HCl Immed Release 5 MG TABLET 7.5 MG PO ×3 (00:07→17:05)
[2023-04-14] MEDS: Omeprazole 20 MG CAPSULE.DR PO (06:03)
[2023-04-14] MEDS: Fluticasone/Umeclidinium/Vilanterol 200/62.5/25 BLST.W.DEV 1 PUFF INHALE (07:37)
[2023-04-14 07:39] LABS: Glucose, Whole Blood 105 mg/dL (60-115)
[2023-04-14] MEDS: 0.9 % Sodium Chloride Flush 3 ML SYRINGE IVFLUSH ×3 (08:15→21:19)
--- NOTE | 2023-04-14 08:48 | MHC.CM.PN ---
CM met with pt. with an interpreter translator to him if he agrees to go to [facility] upon DC, per PT rec. Pt does agree, CM also spoke with pt.'s son Chirag about this. Referral sent to [facility], as pt. is on HD. HCP completed and added to chart, naming son, Piedad.
[2023-04-14 09:23] LABS: Anion Gap 21 (12-20); Blood Urea Nitrogen 70 mg/dL (9-16); Calcium 8.9 mg/dL (8.4-10.2); Carbon Dioxide 22 mmol/L (22-29); Chloride 98 mmol/L (96-108); Estimated Glomerular Filt Rate 5; Glucose Random 153 mg/dL (60-115); Sodium 135 mmol/L (135-145)
[2023-04-14 13:46] LABS: Glucose, Whole Blood 127 mg/dL (60-115)
[2023-04-14] MEDS: NIFEdipine ER 60 MG TAB.ER.24 PO ×2 (13:49→21:19)
[2023-04-14] MEDS: Atorvastatin Calcium 40 MG TABLET PO (13:49)
[2023-04-14] MEDS: carvediloL 12.5 MG TABLET PO ×2 (13:49→21:19)
[2023-04-14] MEDS: Furosemide 40 MG TABLET 80 MG PO (13:49)
[2023-04-14] MEDS: Aspirin Enteric Coated 81 MG TABLET.DR PO (13:49)
[2023-04-14] MEDS: Pregabalin 75 MG CAPSULE PO (13:49)
--- NOTE | 2023-04-14 14:47 | HO.PM.IMPN ---
Subjective Subjective Date of Service: 04/14/23 Interval History: hypoxemic respiratory failure, hyperkalemia Review of Systems Sats are otherwise improved significantly, but patient desaturate when sleeping, has history of sleep apnea but noncompliant to CPAP No fever or chills. Physical Exam Vital Signs: Vital Signs: Last Vital Signs Temp 97.5 F 04/14/23 07:14 Pulse 59 04/14/23 07:38 Resp 18 04/14/23 07:38 BP 111/59 L 04/14/23 07:14 Pulse Ox 96 04/14/23 07:14 O2 Del Method Nasal Cannula 04/14/23 07:14 O2 Flow Rate 1 04/14/23 07:14 Oxygen Flow Rate 1 04/13/23 12:03 BMI result Body Mass Index 30.9 Appearance: Alert.? Oriented X3.? cvs: [id number], [id number]. res: clear to auscultation ,diminshed bases right>left abd: no rebound or guarding ,nt, bs present. ext pulses present , no cyanosis . neuro: axo3 , nonfocal. Objective Data Active Medications Acetaminophen (Acetaminophen 325 Mg Tablet) 650 mg PO Q6H PRN PRN Reason: Pain, Mild (Pain Scale 1-3) Last Admin: 04/13/23 21:43 Dose: 650 mg Documented By: JOSE JUAN Albuterol Sulfate (Albuterol Sulfate 90 Mcg 8 Gm Inhaler) 2 puff INHALE Q4H PRN PRN Reason: Shortness Of Breath Allopurinol (Allopurinol 100 Mg Tablet) 100 mg PO MOWEFR@1600 [facility] Last Admin: 04/12/23 16:14 Dose: 100 mg Documented By: TRI Aspirin (Aspirin Enteric Coated 81 Mg Tablet.) 81 mg PO DAILY [facility] Last Admin: 04/14/23 13:49 Dose: 81 mg Documented By: KEITH Atorvastatin Calcium (Atorvastatin Calcium 40 Mg Tablet) 40 mg PO DAILY [facility] Last Admin: 04/14/23 13:49 Dose: 40 mg Documented By: KEITH Carvedilol (Carvedilol 12.5 Mg Tablet) 12.5 mg PO BID [facility]; Protocol Last Admin: 04/14/23 13:49 Dose: 12.5 mg Documented By: KEITH Dextrose (Dextrose 50 % 25 Gm/50 Ml Syringe) 25 gm IVPUSH Q15M PRN; Protocol PRN Reason: per Hypoglycemia Standing Ord. Doxazosin Mesylate (Doxazosin Mesylate 2 Mg Tablet) 4 mg PO BEDTIME [facility]; Protocol Last Admin: 04/13/23 21:42 Dose: 4 mg Documented By: JOSE JUAN Fluticasone/Umeclidinium/Vilanterol (Fluticasone/Umeclidinium/Vilanterol 200/62.5/25 Blst.W.Dev) 1 puff INHALE RDAILY [facility] Last Admin: 04/14/23 07:37 Dose: 1 puff Documented By: SHRUTHI Furosemide (Furosemide 40 Mg Tablet) 80 mg PO DAILY [facility]; Protocol Last Admin: 04/14/23 13:49 Dose: 80 mg Documented By: KEITH Glucose (Glucose Gel 15 Gm Gel..Gram.) 15 gm PO Q15M PRN; Protocol PRN Reason: per Hypoglycemia Standing Ord. Insulin Human Lispro (Insulin Lispro 100 Unit/Ml 3 Ml Vial) 0 unit SUBCUT QIDACHS [facility]; Protocol Last Admin: 04/14/23 13:46 Dose: Not Given Documented By: KEITH Non-Admin Reason: poc= 127 Nifedipine (Nifedipine Er 60 Mg Tab.Er.24) 60 mg PO BID [facility]; Protocol Last Admin: 04/14/23 13:49 Dose: 60 mg Documented By: KEITH Non-Formulary Medication (Sucroferric Oxyhydroxide [Velphoro]) 500 mg PO TID [facility] Omeprazole (Omeprazole 20 Mg Capsule.Dr) 20 mg PO DAILY@0630 [facility] Last Admin: 04/14/23 06:03 Dose: 20 mg Documented By: JAYME Oxycodone HCl (Oxycodone Hcl Immed Release 5 Mg Tablet) 7.5 mg PO Q6H PRN PRN Reason: Pain, Severe (Pain Scale 7-10) Last Admin: 04/14/23 06:03 Dose: 7.5 mg Documented By: JAYME Polyethylene Glycol (Polyethylene Glycol 3350 17 Gm Powd.Pack) 17 gm PO DAILY PRN PRN Reason: Constipation Pregabalin (Pregabalin 75 Mg Capsule) 75 mg PO DAILY [facility] Last Admin: 04/14/23 13:49 Dose: 75 mg Documented By: HO.WILLIAK Senna/Docusate Sodium (Sennosides/Docusate Sodium Tablet) 1 tab PO DAILY PRN PRN Reason: Constipation Sodium Chloride (0.9 % Sodium Chloride Flush 3 Ml Syringe) 3 ml IVFLUSH QSHIFT [facility] Last Admin: 04/14/23 08:15 Dose: 3 ml Documented By: KEITH Labs 04/10/23 12:56 04/14/23 08:40 Labs: Laboratory Results - last 24 hr 04/13/23 04/13/23 04/14/23 16:25 20:38 07:13 Anion Gap Estim Creat Clear Calc Estimated GFR POC Glucose 194 H 138 H 105 Random Glucose Calcium 04/14/23 04/14/23 08:40 13:41 Anion Gap 21 H Estim Creat Clear Calc 7.0 Estimated GFR 5 POC Glucose 127 H Random Glucose 153 H Calcium 8.9 Microbiology Microbiology Results: Microbiology 04/11/23 14:07 Gram Stain - Final Pleural Fluid Routine Culture - Final No growth after 2 days Anaerobic Culture - Preliminary No growth to date. Assessment and Plan (1) ESRD on dialysis: Status: Acute (2) Acute on chronic systolic and diastolic heart failure, NYHA class 3: Status: Acute Plan 67 years old man admitted with: Hypoxemic respiratory failure -etiology unclear-multifactorial( chf-etiology unclear ,esrd ) Continue supplemental oxygen to keep oxygen saturation above 90%. IR consult for thoracentesis-added pleural fluid labs. Aspirin on hold (not longer taking Eliquis). Check echocardiogram: ef low in 30% Continue Lasix,Seen by Cardiology: Will switch labetalol to Coreg. May also need to consider switching lisinopril to Entresto if if okay with Nephrology,consider to start Jardiance. b/l lymph nodes on ct neck: Discussed with oncology and pulmonology recommended outpatient workup and management according Esrd on HD- Continue Velphoro. Renal diet. Nephrology consult for inpatient hemodialysis. Elevated troponin. Likely secondary to end-stage renal disease. Doubt ACS. Recheck troponin in the morning. Check echocardiogram. Essential hypertension. Continue lisinopril, nifedipine and labetalol. Neuropathy. Continue pregabalin. Gout. Continue allopurinol. Type 2 diabetes mellitus. Patient stated that his BG has been very low lately. Will hold Lantus for now. Diabetic diet. Blood glucose monitoring before meals at bedtime. Anemia. Chronic. Continue to monitor hemoglobin. Hyperlipidemia. Continue statin. Obstructive sleep apnea. Hx of noncompliance with CPAP treatment. d/w pulm:added noctural pulse oxymetry DVT prophylaxis: SCDs only (possible thoracentesis) ongoing hospitalization need for hypoxic respiratory failure secondary to right pleural effusion treatment with supplemental oxygen ,Hd,also had cardic dysfunction low ef -need medication adjustment and exepert evaluation Quality Stroke Does the patient have a stroke diagnosis?: No VTE Prior VTE?: No VTE Risk Level:: Medical - moderate - high VTE Device Contraindication: N/A - Device Ordered VTE Drug Contraindication: Treatment Not Indicated
[2023-04-14 16:06] LABS: Glucose, Whole Blood 119 mg/dL (60-115)
[2023-04-14] MEDS: allopurinoL 100 MG TABLET PO (16:58)
[2023-04-14 21:01] LABS: Glucose, Whole Blood 159 mg/dL (60-115)
[2023-04-14 21:10] LABS: Glucose, Whole Blood 160 mg/dL (60-115)
[2023-04-14] MEDS: Insulin Lispro 100 UNIT/ML 3 ML VIAL SUBCUT (21:18)
[2023-04-14] MEDS: Doxazosin Mesylate 2 MG TABLET 4 MG PO (21:19)
--- NOTE | 2023-04-14 23:23 | PC.RT ---
Pt placed on overnight pulse oximetry. Pt currently on room air 21% HR 67 O2 sat 95%. RN aware
[2023-04-15] VITALS (8 sets, daily range): BP systolic 108–145; BP diastolic 37–69; PULSE 57–65; RESP 16–20; TEMP 36.2–36.9; O2SAT 91–96; BMI 30.6
[2023-04-15] MEDS: Omeprazole 20 MG CAPSULE.DR PO (05:48)
[2023-04-15] MEDS: oxyCODONE HCl Immed Release 5 MG TABLET 7.5 MG PO (06:00)
[2023-04-15] MEDS: Sennosides/Docusate Sodium TABLET 1 TAB PO (06:20)
[2023-04-15] MEDS: Fluticasone/Umeclidinium/Vilanterol 200/62.5/25 BLST.W.DEV 1 PUFF INHALE (07:54)
[2023-04-15 08:50] LABS: Glucose, Whole Blood 172 mg/dL (60-115)
[2023-04-15 08:59] LABS: Anion Gap 20 (12-20); Blood Urea Nitrogen 54 mg/dL (9-16); Carbon Dioxide 22 mmol/L (22-29); Chloride 96 mmol/L (96-108); Creatinine Clr Calc Pharmacy 8.4; Estimated Glomerular Filt Rate 7; Glucose Random 173 mg/dL (60-115); Potassium 5.2 mmol/L (3.3-5.1); Sodium 133 mmol/L (135-145)
[2023-04-15] MEDS: Atorvastatin Calcium 40 MG TABLET PO (09:04)
[2023-04-15] MEDS: Aspirin Enteric Coated 81 MG TABLET.DR PO (09:04)
[2023-04-15] MEDS: NIFEdipine ER 60 MG TAB.ER.24 PO ×2 (09:04→22:56)
[2023-04-15] MEDS: polyethylene glycoL 3350 17 GM POWD.PACK PO (09:04)
[2023-04-15] MEDS: Insulin Lispro 100 UNIT/ML 3 ML VIAL SUBCUT ×3 (09:04→22:57)
[2023-04-15] MEDS: Furosemide 40 MG TABLET 80 MG PO (09:04)
[2023-04-15] MEDS: carvediloL 12.5 MG TABLET PO ×2 (09:04→22:59)
[2023-04-15] MEDS: 0.9 % Sodium Chloride Flush 3 ML SYRINGE IVFLUSH ×3 (09:04→23:03)
[2023-04-15] MEDS: Pregabalin 75 MG CAPSULE PO (09:04)
[2023-04-15] MEDS: Lidocaine 4 % Patch ADH..PATCH 1 PATCH TRANSDERMA (09:22)
[2023-04-15] MEDS: Acetaminophen 325 MG TABLET 650 MG PO (09:23)
[2023-04-15] MEDS: Cyclobenzaprine HCl 5 MG TABLET PO (09:30)
[2023-04-15 12:15] LABS: Glucose, Whole Blood 133 mg/dL (60-115)
--- NOTE | 2023-04-15 13:15 | P.PNNP_ITS ---
Subjective Subjective Date of Service: 04/14/23 Interval history: hypoxemic respiratory failure, hyperkalemia Physical Exam 2 Vital Signs: Vital Signs: Vital Signs Oxygen Flow Rate 1 04/14/23 07:00 BMI result Body Mass Index 30.6 cvs; s1s2 Rs; cta ABd; soft VSS Objective Data Labs 04/10/23 12:56 04/15/23 08:26 Labs: Laboratory Results - last 24 hr 04/14/23 04/14/23 04/14/23 13:41 15:53 19:48 Hold Purple Top Sodium Potassium Chloride Carbon Dioxide Anion Gap BUN Creatinine Estim Creat Clear Calc Estimated GFR POC Glucose 127 H 119 H 159 H Random Glucose Calcium 04/14/23 04/15/23 04/15/23 21:07 07:35 08:26 Hold Purple Top SEE NOTE Sodium 133 L Potassium 5.2 H Chloride 96 Carbon Dioxide 22 Anion Gap 20 BUN 54 H Creatinine 8.27 H* Estim Creat Clear Calc 8.4 Estimated GFR 7 POC Glucose 160 H 172 H Random Glucose 173 H Calcium 9.0 04/15/23 11:40 Hold Purple Top Sodium Potassium Chloride Carbon Dioxide Anion Gap BUN Creatinine Estim Creat Clear Calc Estimated GFR POC Glucose 133 H Random Glucose Calcium Microbiology Microbiology Results: Microbiology 04/11/23 14:07 Pleural Fluid Gram Stain - Final 04/11/23 14:07 Pleural Fluid Routine Culture - Final No growth after 2 days 04/11/23 14:07 Pleural Fluid Anaerobic Culture - Preliminary No growth to date. Procedures Date of Service Date of Service: 04/15/23 Assessment & Plan Assessment and plan (1) ESRD on dialysis: Status: Acute Plan usually has HD M-W- at [facility] dialysis- first shift non adherence with h/o terminating treatments early last dialysed at his unit on 04/10 REC HD MWF schedule optimize volume status improve adherence IR thoracentesis cardiology eval for chf- agree with change of labetalol to coreg and lisinopril to entresto as op no need for NAYE (Hb > 11) phosphate binders renal diet Time Spent With Patient Time: Total time managing care of this patient today ____ minutes. Progress Note: Quality Stroke Does the patient have a stroke diagnosis?: No
--- NOTE | 2023-04-15 13:22 | P.PNIM_ITS ---
Subjective Subjective Date of Service: 04/15/23 Interval History: hypoxemic respiratory failure, hyperkalemia Review of Systems has cramps sob improved some desats while sleeping Physical Exam 2 Vital Signs: Vital Signs: Last Vital Signs Temp 98.1 F 04/15/23 11:42 Pulse 62 04/15/23 11:42 Resp 20 04/15/23 11:42 BP 108/37 L 04/15/23 11:42 Pulse Ox 95 04/15/23 11:42 O2 Del Method Nasal Cannula 04/15/23 11:42 O2 Flow Rate 1 04/15/23 11:42 Oxygen Flow Rate 1 04/14/23 07:00 BMI result Body Mass Index 30.6 Appearance: Alert.? Oriented X3.? cvs: rrr, [id number]. res: clear to auscultation ,diminshed bases right>left abd: no rebound or guarding ,nt, bs present. ext pulses present , no cyanosis . neuro: axo3 , nonfocal. Objective Data Active Medications Acetaminophen (Acetaminophen 325 Mg Tablet) 650 mg PO Q6H PRN PRN Reason: Pain, Mild (Pain Scale 1-3) Last Admin: 04/15/23 09:23 Dose: 650 mg Documented By: KEITH Albuterol Sulfate (Albuterol Sulfate 90 Mcg 8 Gm Inhaler) 2 puff INHALE Q4H PRN PRN Reason: Shortness Of Breath Allopurinol (Allopurinol 100 Mg Tablet) 100 mg PO MOWEFR@1600 [facility] Last Admin: 04/14/23 16:58 Dose: 100 mg Documented By: KEITH Aspirin (Aspirin Enteric Coated 81 Mg Tablet.) 81 mg PO DAILY [facility] Last Admin: 04/15/23 09:04 Dose: 81 mg Documented By: KEITH Atorvastatin Calcium (Atorvastatin Calcium 40 Mg Tablet) 40 mg PO DAILY [facility] Last Admin: 04/15/23 09:04 Dose: 40 mg Documented By: KEITH Carvedilol (Carvedilol 12.5 Mg Tablet) 12.5 mg PO BID [facility]; Protocol Last Admin: 04/15/23 09:04 Dose: 12.5 mg Documented By: KEITH Dextrose (Dextrose 50 % 25 Gm/50 Ml Syringe) 25 gm IVPUSH Q15M PRN; Protocol PRN Reason: per Hypoglycemia Standing Ord. Doxazosin Mesylate (Doxazosin Mesylate 2 Mg Tablet) 4 mg PO BEDTIME [facility]; Protocol Last Admin: 04/14/23 21:19 Dose: 4 mg Documented By: DAVID Fluticasone/Umeclidinium/Vilanterol (Fluticasone/Umeclidinium/Vilanterol 200/62.5/25 Blst.W.Dev) 1 puff INHALE RDAILY [facility] Last Admin: 04/15/23 07:54 Dose: 1 puff Documented By: LAUREN Furosemide (Furosemide 40 Mg Tablet) 80 mg PO DAILY [facility]; Protocol Last Admin: 04/15/23 09:04 Dose: 80 mg Documented By: KEITH Glucose (Glucose Gel 15 Gm Gel..Gram.) 15 gm PO Q15M PRN; Protocol PRN Reason: per Hypoglycemia Standing Ord. Insulin Human Lispro (Insulin Lispro 100 Unit/Ml 3 Ml Vial) 0 unit SUBCUT QIDACHS [facility]; Protocol Last Admin: 04/15/23 12:27 Dose: Not Given Documented By: KEITH Non-Admin Reason: [id number] Lidocaine (Lidocaine 4 % Patch Adh..Patch) 1 patch TRANSDERMA DAILY [facility]; Protocol Last Admin: 04/15/23 09:22 Dose: 1 patch Documented By: KEITH Nifedipine (Nifedipine Er 60 Mg Tab.Er.24) 60 mg PO BID [facility]; Protocol Last Admin: 04/15/23 09:04 Dose: 60 mg Documented By: KEITH Non-Formulary Medication (Sucroferric Oxyhydroxide [Velphoro]) 500 mg PO TID [facility] Omeprazole (Omeprazole 20 Mg Capsule.Dr) 20 mg PO DAILY@0630 [facility] Last Admin: 04/15/23 05:48 Dose: 20 mg Documented By: DAVID Oxycodone HCl (Oxycodone Hcl Immed Release 5 Mg Tablet) 7.5 mg PO Q6H PRN PRN Reason: Pain, Severe (Pain Scale 7-10) Last Admin: 04/15/23 06:00 Dose: 7.5 mg Documented By: DAVID Polyethylene Glycol (Polyethylene Glycol 3350 17 Gm Powd.Pack) 17 gm PO DAILY PRN PRN Reason: Constipation Last Admin: 04/15/23 09:04 Dose: 17 gm Documented By: KEITH Pregabalin (Pregabalin 75 Mg Capsule) 75 mg PO DAILY [facility] Last Admin: 04/15/23 09:04 Dose: 75 mg Documented By: KEITH Senna/Docusate Sodium (Sennosides/Docusate Sodium Tablet) 1 tab PO DAILY PRN PRN Reason: Constipation Last Admin: 04/15/23 06:20 Dose: 1 tab Documented By: DAVID Sodium Chloride (0.9 % Sodium Chloride Flush 3 Ml Syringe) 3 ml IVFLUSH QSHIFT [facility] Last Admin: 04/15/23 09:04 Dose: 3 ml Documented By: KEITH Labs 04/10/23 12:56 04/15/23 08:26 Labs: Laboratory Results - last 24 hr 04/14/23 04/14/23 04/14/23 13:41 15:53 19:48 Hold Purple Top Anion Gap Estim Creat Clear Calc Estimated GFR POC Glucose 127 H 119 H 159 H Random Glucose Calcium 04/14/23 04/15/23 04/15/23 21:07 07:35 08:26 Hold Purple Top SEE NOTE Anion Gap 20 Estim Creat Clear Calc 8.4 Estimated GFR 7 POC Glucose 160 H 172 H Random Glucose 173 H Calcium 9.0 04/15/23 11:40 Hold Purple Top Anion Gap Estim Creat Clear Calc Estimated GFR POC Glucose 133 H Random Glucose Calcium Microbiology Microbiology Results: Microbiology 04/11/23 14:07 Gram Stain - Final Pleural Fluid Routine Culture - Final No growth after 2 days Anaerobic Culture - Preliminary No growth to date. Assessment and Plan (1) ESRD on dialysis: Status: Acute (2) Acute on chronic systolic and diastolic heart failure, NYHA class 3: Status: Acute Plan 67 years old man admitted with: Hypoxemic respiratory failure -etiology unclear-multifactorial( chf-etiology unclear ,esrd ) Continue supplemental oxygen to keep oxygen saturation above 90%. IR consult for thoracentesis-added pleural fluid labs. Aspirin on hold (not longer taking Eliquis). Check echocardiogram: ef low in 30% Continue Lasix,Seen by Cardiology: Will switch labetalol to Coreg. May also need to consider switching lisinopril to Entresto if if okay with Nephrology,consider to start Jardiance. b/l lymph nodes on ct neck: Discussed with oncology and pulmonology recommended outpatient workup and management according has neck pain ( ct scan shows DJd): continue tylenol,lidocaine patch,added flexril. Esrd on HD- Continue Velphoro. Renal diet. Nephrology consult for inpatient hemodialysis. Essential hypertension. Continue lisinopril, nifedipine and coreg. Neuropathy. Continue pregabalin. Gout. Continue allopurinol. Type 2 diabetes mellitus. Patient stated that his BG has been very low lately. Will hold Lantus for now. Diabetic diet. Blood glucose monitoring before meals at bedtime. Anemia. Chronic. Continue to monitor hemoglobin. Hyperlipidemia. Continue statin. Obstructive sleep apnea. Hx of noncompliance with CPAP treatment. d/w pulm:noctural pulse oxymetry pending DVT prophylaxis: SCDs only (possible thoracentesis) ongoing hospitalization need for possible rehab placement. Quality Stroke Does the patient have a stroke diagnosis?: No VTE Prior VTE?: No VTE Risk Level:: Medical - moderate - high VTE Device Contraindication: N/A - Device Ordered VTE Drug Contraindication: Treatment Not Indicated
[2023-04-15 16:25] LABS: Glucose, Whole Blood 179 mg/dL (60-115)
[2023-04-15 20:49] LABS: Glucose, Whole Blood 204 mg/dL (60-115)
[2023-04-15] MEDS: Doxazosin Mesylate 2 MG TABLET 4 MG PO (22:56)
[2023-04-16] VITALS (9 sets, daily range): BP systolic 112–166; BP diastolic 53–69; PULSE 61–73; RESP 14–20; TEMP 36.7–37.4; O2SAT 93–98; BMI 31.6
--- NOTE | 2023-04-16 | ECG_ITS ---
Test Reason : hyper kalemia Blood Pressure : / mmHG Vent. Rate : 065 BPM Atrial Rate : 065 BPM P-R Int : 202 ms QRS Dur : 118 ms QT Int : 392 ms P-R-T Axes : 043 047 035 degrees QTc Int : 407 ms Normal sinus rhythm Non-specific intra-ventricular conduction delay Minimal voltage criteria for LVH, may be normal variant ( James product ) Borderline ECG When compared with ECG of 10-APR-2023 12:50, Nonspecific T wave abnormality no longer evident in Lateral leads QT has shortened Referred By: Mya Reid Electronically Signed By:Tim Lan
[2023-04-16] MEDS: Omeprazole 20 MG CAPSULE.DR PO (06:22)
--- NOTE | 2023-04-16 07:38 | P.PNNP_ITS ---
Subjective Subjective Date of Service: 04/16/23 Interval history: Seen and examined, events noted Physical Exam 2 Vital Signs: Vital Signs: Last Vital Signs Temp 98.9 F 04/16/23 03:22 Pulse 67 04/16/23 03:22 Resp 20 04/15/23 23:36 BP 128/60 04/16/23 03:22 Pulse Ox 95 04/16/23 03:22 O2 Del Method Nasal Cannula 04/16/23 03:22 O2 Flow Rate 1 04/16/23 03:22 Oxygen Flow Rate 1 04/15/23 07:00 BMI result Body Mass Index 31.6 Const: General: healthy appearing, comfortable, no acute distress, alert and awake Nutritional Appearance: well nourished Orientation/consciousness: p atient oriented x3 HEENT: Other: Unremarkable Head: Yes normal to inspection, Yes normocephalic and Yes atraumatic Eyes: Eyelids: Yes eyelids normal Conjunctivae: conjunctivae normal S clerae: sclerae normal Corneas: corneas normal Pupils: Equal, round and reactive pupils present EOM: EOMs intact bilaterally Neck: Neck: Yes normal visual inspection and Yes full ROM Chest: Chest palpation & inspection: normal inspection of the chest Resp: Other: Diminished breath sounds, but no wheezing. Crackles in the right lung base Effort & Inspection: normal respiratory effort, able to speak in complete sentences and not labored Auscultation: crackles Cardio: Palpation: normal PMI Heart sounds: S1 normal heart sound present, S2 normal heart sound present, no gallops, Murmur heart sound present systolic II/ and no rubs GI: Inspection: No distended Palpation (GI): Soft to palpation, not firm, nontender, no guarding and not rigid Back/Spine/Pelvis: Other: unremarkable Skin: General skin exam: no rashes or lesions noted and elasticity normal Neuro: General: patient oriented x3 Cranial nerves: Yes Equal, round and reactive pupils present and Yes Bilaterally intact EOM present Cognition (Neuro): normal cognition Extrem: Other: Moving all extremities well without any obvious deformities General: Yes normal to inspection Psych: Mental Status: mental status grossly normal Objective Data Labs 04/10/23 12:56 04/15/23 08:26 Labs: Laboratory Results - last 24 hr 04/15/23 04/15/23 04/15/23 07:35 08:26 11:40 Hold Purple Top SEE NOTE Sodium 133 L Potassium 5.2 H Chloride 96 Carbon Dioxide 22 Anion Gap 20 BUN 54 H Creatinine 8.27 H* Estim Creat Clear Calc 8.4 Estimated GFR 7 POC Glucose 172 H 133 H Random Glucose 173 H Calcium 9.0 04/15/23 04/15/23 16:22 20:20 Hold Purple Top Sodium Potassium Chloride Carbon Dioxide Anion Gap BUN Creatinine Estim Creat Clear Calc Estimated GFR POC Glucose 179 H 204 H Random Glucose Calcium Microbiology Microbiology Results: Microbiology 04/11/23 14:07 Pleural Fluid Gram Stain - Final 04/11/23 14:07 Pleural Fluid Routine Culture - Final No growth after 2 days 04/11/23 14:07 Pleural Fluid Anaerobic Culture - Preliminary No growth to date. Procedures Date of Service Date of Service: 04/16/23 Assessment & Plan Assessment and plan (1) ESRD on dialysis: Status: Acute Plan ESRD [facility] st Non-adherence Pl effussion s/p tap CHF: card optimizing meds REC: cont HD mwf; extra UF as needed; meds as noted Time Spent With Patient Time: Total time managing care of this patient today ____ minutes. Progress Note: Quality Stroke Does the patient have a stroke diagnosis?: No
[2023-04-16] MEDS: Fluticasone/Umeclidinium/Vilanterol 200/62.5/25 BLST.W.DEV 1 PUFF INHALE (07:55)
[2023-04-16 08:06] LABS: Glucose, Whole Blood 139 mg/dL (60-115)
[2023-04-16] MEDS: Lidocaine 4 % Patch ADH..PATCH 1 PATCH TRANSDERMA (08:26)
[2023-04-16] MEDS: Aspirin Enteric Coated 81 MG TABLET.DR PO (08:26)
[2023-04-16] MEDS: polyethylene glycoL 3350 17 GM POWD.PACK PO (08:26)
[2023-04-16] MEDS: NIFEdipine ER 60 MG TAB.ER.24 PO ×2 (08:26→21:32)
[2023-04-16] MEDS: Furosemide 40 MG TABLET 80 MG PO (08:27)
[2023-04-16] MEDS: Pregabalin 75 MG CAPSULE PO (08:27)
[2023-04-16] MEDS: Atorvastatin Calcium 40 MG TABLET PO (08:27)
[2023-04-16] MEDS: carvediloL 12.5 MG TABLET PO ×2 (08:27→21:32)
[2023-04-16] MEDS: 0.9 % Sodium Chloride Flush 3 ML SYRINGE IVFLUSH ×3 (08:28→21:32)
[2023-04-16 09:47] LABS: Venous Blood Gas Refer to POC result
[2023-04-16 09:49] LABS: VBG Base Excess -3.8 mmol/L; VBG HCO3 22 mmol/L (22-26); VBG pCO2 46 mmHg; VBG pH 7.29 (7.32-7.43); VBG pO2 75 mmHg
[2023-04-16 10:02] LABS: Anion Gap 23 (12-20); Blood Urea Nitrogen 80 mg/dL (9-16); Carbon Dioxide 22 mmol/L (22-29); Chloride 99 mmol/L (96-108); Glucose Random 198 mg/dL (60-115); Phosphorus 10.3 mg/dL (2.7-4.5); Sodium 137 mmol/L (135-145)
--- NOTE | 2023-04-16 10:07 | P.PNCA_ITS ---
Subjective Subjective Date of Service: 04/16/23 Interval history: Somewhat sleepy. Even with medical interpreter, not able to answer questions. However, when I repeatedly asked, he states he has not having any chest pain or shortness of breath or other complaints. Review of Systems Review of Systems Yes all other systems are reviewed and are negative Constitutional: Reports as per HPI and Reports no additional constitutional complaints Eyes: Reports as per HPI and Denies no additional eye complaints Denies system reviewed and no additional complaints, except as documented and Reports as per HPI Cardiovascular: Reports as per HPI, Reports no additional cardiovascular complaints, Denies acrocyanosis, Denies cool extremities, Denies chest pain, Denies leg edema, Denies lightheadedness, Denies palpitations and Denies dyspnea Respiratory: Reports as per HPI, Denies no additional respiratory complaints and Denies dyspnea Gastrointestinal: Reports as per HPI and Denies no additional gastrointestinal complaints Genitourinary: Reports no additional male genitourinary complaints and Reports as per HPI Musculoskeletal: Reports no additional musculoskeletal complaints and Reports as per HPI Skin/Breast: Reports system reviewed and no additional complaints, except as docu Reports system reviewed and no additional complaints, except as documented and Reports as per HPI Psychiatric: Reports no additional psychiatric complaints and Reports as per HPI Endocrine: Reports no additional endocrine complaints, Reports as per HPI and Denies palpitations Hematologic/Lymphatic: Reports no additional hematologic/lymphatic complaints and Reports as per HPI Allergic/Immunologic: Reports no additional allergic/immunologic complaints and Reports as per HPI Physical Exam Vital Signs: Last Vital Signs Temp 99.2 F 04/16/23 08:00 Pulse 73 04/16/23 08:00 Resp 16 04/16/23 08:00 BP 156/69 H 04/16/23 08:00 Pulse Ox 93 04/16/23 08:00 O2 Del Method Nasal Cannula 04/16/23 08:00 O2 Flow Rate 1 04/16/23 08:00 Oxygen Flow Rate 1 04/15/23 07:00 BMI result Body Mass Index 31.6 Const General: comfortable and no acute distress Orientation/consciousness: patient oriented x3 HEENT Other: Unremarkable Head: Yes normal to inspection Neck Neck: Yes normal visual inspection Chest Chest palpation & inspection: normal inspection of the chest Resp Auscultation: clear to auscultation bilaterally Cardio Palpation: normal PMI Heart sounds: S1 normal heart sound present, S2 normal heart sound present, no gallops, no murmurs and no rubs GI Palpation (GI): Soft to palpation Back/Spine/Pelvis Other: unremarkable Skin General skin exam: no rashes or lesions noted Neuro General: patient oriented x3 Extrem General: Yes normal to inspection Psych Mental Status: mental status grossly normal Objective Labs and Meds 04/10/23 12:56 04/16/23 09:38 Lab results: Laboratory Results - last 24 hr 04/15/23 04/15/23 04/15/23 11:40 16:22 20:20 VBG pH VBG pCO2 VBG pO2 VBG HCO3 VBG O2 Saturation VBG Base Excess Sodium Chloride Carbon Dioxide Anion Gap BUN POC Glucose 133 H 179 H 204 H Random Glucose Calcium Phosphorus 04/16/23 04/16/23 04/16/23 08:01 09:38 09:42 VBG pH 7.29 L VBG pCO2 46 VBG pO2 75 VBG HCO3 22 VBG O2 Saturation 94.0 VBG Base Excess -3.8 Sodium 137 Chloride 99 Carbon Dioxide 22 Anion Gap 23 H BUN 80 H POC Glucose 139 H Random Glucose 198 H Calcium 9.0 Phosphorus 10.3 H Progress Note: A&P Assessment and plan (1) Acute on chronic systolic and diastolic heart failure, NYHA class 3: Status: Acute (2) ESRD on dialysis: Status: Acute Plan Echocardiogram with LVEF of 35%. Moderate diastolic dysfunction. Moderately depressed right ventricular systolic function. Mild pulmonary hypertension. Most recent creatinine is 8.2. High sensitive troponin levels are in the 50s. Cardiac BNP at around 3200 and 2400. Overall, significant cardiac dysfunction, both right ventricular and left ventricular and ESRD/dialysis; many comorbidities. With regard to meds, continue carvedilol instead of labetalol. Due to hyperkalemia will not be able tolerate Entresto. Also can not use spironolactone for the same reason. If approved by Nephrology, start Jardiance. Otherwise, can consider ischemia workup as outpatient but unlikely that he has a good candidate for the same. Overall prognosis guarded. Can call for an appointment. Discussed with Dr. Reid. Time Spent With Patient Time: Total time managing care of this patient today 42 minutes. This includes time spent in review of chart, laboratory data, imaging studies, review of telemetry, counseling patient, discussion with hospitalist, RN, documentation, coordination of care. Progress Note: Quality Stroke Does the patient have a stroke diagnosis?: No Procedures Date of Service Date of Service: 04/16/23
[2023-04-16 10:26] LABS: Creatinine Clr Calc Pharmacy 6.7; Estimated Glomerular Filt Rate 5; Potassium 7.1 mmol/L (3.3-5.1)
[2023-04-16 11:08] LABS: Glucose, Whole Blood 236 mg/dL (60-115)
--- NOTE | 2023-04-16 11:21 | W.PM.CCCN ---
History of Present Illness Data of Consult Service Date: 04/16/23 Primary Care Provider: Jade Lewis MD [facility] Reason for consult: Level of care 67-year-old gentleman with underlying ESRD on hemodialysis, diabetes mellitus, hypertension admitted on 04/11/2023 with dyspnea and hypoxia also noted to have large right-sided pleural effusion. Patient had thoracentesis with drainage of 1600 cc of clear transudative fluid. Today patient with worsening mentation, renal indices, metabolic acidosis, and respiratory compensation. Review of Systems Review of Systems: Yes Unobtainable due to mental status Neurologic: Reports confusion (Arousable) Psychiatric: Psychiatric: Reports confusion (Arousable) [facility] Past Medical History Medical History (Updated 04/16/23 @ 11:34 by Edward Jean MD) Anemia ESRD (end stage renal disease) Occlusive thrombus Pulmonary edema Noncompliance with CPAP treatment ROBERT (obstructive sleep apnea) Type 2 diabetes mellitus Hyperlipidemia Hypertension A-V fistula ESRD on dialysis Falling Congestive heart disease Dialysis complication Family History Family History (Updated 04/12/23 @ 10:32 by Jerad Severino MD) Father No problems noted. Mother No problems noted. Social History Social History Household Members: Family Housing: House Do you presently have visiting nurse or other home services: No Alcohol intake: never Comment: Pt refuses bed alarm Patient Tobacco Use Status: Former Tobacco user service: No Meds Allergies Allergy/AdvReac Type Severity Reaction Status Date / Time No Known Allergies Allergy Verified 09/28/22 11:38 Active Medications: Current Medications Acetaminophen (Acetaminophen 325 Mg Tablet) 650 mg PO Q6H PRN PRN Reason: Pain, Mild (Pain Scale 1-3) Last Admin: 04/15/23 09:23 Dose: 650 mg Albuterol Sulfate (Albuterol Sulfate 90 Mcg 8 Gm Inhaler) 2 puff INHALE Q4H PRN PRN Reason: Shortness Of Breath Allopurinol (Allopurinol 100 Mg Tablet) 100 mg PO MOWEFR@1600 [facility] Last Admin: 04/14/23 16:58 Dose: 100 mg Aspirin (Aspirin Enteric Coated 81 Mg Tablet.) 81 mg PO DAILY [facility] Last Admin: 04/16/23 08:26 Dose: 81 mg Atorvastatin Calcium (Atorvastatin Calcium 40 Mg Tablet) 40 mg PO DAILY [facility] Last Admin: 04/16/23 08:27 Dose: 40 mg Carvedilol (Carvedilol 12.5 Mg Tablet) 12.5 mg PO BID [facility]; Protocol Last Admin: 04/16/23 08:27 Dose: 12.5 mg Dextrose (Dextrose 50 % 25 Gm/50 Ml Syringe) 25 gm IVPUSH Q15M PRN; Protocol PRN Reason: per Hypoglycemia Standing Ord. Doxazosin Mesylate (Doxazosin Mesylate 2 Mg Tablet) 4 mg PO BEDTIME [facility]; Protocol Last Admin: 04/15/23 22:56 Dose: 4 mg Fluticasone/Umeclidinium/Vilanterol (Fluticasone/Umeclidinium/Vilanterol 200/62.5/25 Blst.W.Dev) 1 puff INHALE RDAILY [facility] Last Admin: 04/16/23 07:55 Dose: 1 puff Furosemide (Furosemide 40 Mg Tablet) 80 mg PO DAILY [facility]; Protocol Last Admin: 04/16/23 08:27 Dose: 80 mg Glucose (Glucose Gel 15 Gm Gel..Gram.) 15 gm PO Q15M PRN; Protocol PRN Reason: per Hypoglycemia Standing Ord. Calcium Gluconate (Calcium Gluconate) 2 gm in 100 mls @ 50 mls/hr IV ONCE ONE Stop: 04/16/23 12:33 Insulin Human Lispro (Insulin Lispro 100 Unit/Ml 3 Ml Vial) 0 unit SUBCUT QIDACHS [facility]; Protocol Last Admin: 04/16/23 08:09 Dose: Not Given Lidocaine (Lidocaine 4 % Patch Adh..Patch) 1 patch TRANSDERMA DAILY [facility]; Protocol Last Admin: 04/16/23 08:26 Dose: 1 patch Nifedipine (Nifedipine Er 60 Mg Tab.Er.24) 60 mg PO BID [facility]; Protocol Last Admin: 04/16/23 08:26 Dose: 60 mg Non-Formulary Medication (Sucroferric Oxyhydroxide [Velphoro]) 500 mg PO TID [facility] Omeprazole (Omeprazole 20 Mg Capsule.Dr) 20 mg PO DAILY@0630 [facility] Last Admin: 04/16/23 06:22 Dose: 20 mg Oxycodone HCl (Oxycodone Hcl Immed Release 5 Mg Tablet) 7.5 mg PO Q6H PRN PRN Reason: Pain, Severe (Pain Scale 7-10) Last Admin: 04/15/23 06:00 Dose: 7.5 mg Polyethylene Glycol (Polyethylene Glycol 3350 17 Gm Powd.Pack) 17 gm PO DAILY PRN PRN Reason: Constipation Last Admin: 04/16/23 08:26 Dose: 17 gm Pregabalin (Pregabalin 75 Mg Capsule) 75 mg PO DAILY [facility] Last Admin: 04/16/23 08:27 Dose: 75 mg Senna/Docusate Sodium (Sennosides/Docusate Sodium Tablet) 1 tab PO DAILY PRN PRN Reason: Constipation Last Admin: 04/15/23 06:20 Dose: 1 tab Sodium Chloride (0.9 % Sodium Chloride Flush 3 Ml Syringe) 3 ml IVFLUSH QSHIFT [facility] Last Admin: 04/16/23 08:28 Dose: 3 ml Home Medications Medication Instructions Recorded Confirmed Last Taken Type albuterol sulfate 90 mcg/actuation 2 puff inhalation Q4H PRN 04/19/22 04/10/23 Unknown History aerosol inhaler Shortness Of Breath allopurinol 100 mg tablet 100 mg PO MOWEFR@1600 04/19/22 04/10/23 04/18/22 History apixaban 5 mg tablet (Eliquis) 5 mg PO BID 04/19/22 04/19/22 04/19/22 History aspirin 81 mg tablet,delayed 81 mg PO DAILY 04/19/22 04/10/23 04/19/22 History release atorvastatin 40 mg tablet 40 mg PO DAILY 04/19/22 04/10/23 04/19/22 History carvedilol 3.125 mg tablet 3.125 mg PO BID 04/19/22 04/11/23 04/19/22 History doxazosin 4 mg tablet 4 mg PO BEDTIME 04/19/22 04/10/23 04/18/22 History furosemide 80 mg tablet 80 mg PO DAILY 04/19/22 04/10/23 04/19/22 History hydralazine 25 mg tablet 25 mg PO TID 04/19/22 04/19/22 04/19/22 History ipratropium 0.5 mg-albuterol 3 mg 3 ml inhalation Q4H PRN Wheezing 04/19/22 04/10/23 Unknown History (2.5 mg base)/3 mL nebulization soln omeprazole 20 mg capsule,delayed 20 mg PO DAILY 04/19/22 04/10/23 04/19/22 History release polyethylene glycol 3350 17 17 g PO DAILY PRN Constipation 04/19/22 04/10/23 Unknown History gram/dose oral powder pregabalin 75 mg capsule 75 mg PO DAILY 04/19/22 04/10/23 04/19/22 History sennosides 8.6 mg-docusate sodium 1 tab PO DAILY PRN Constipation 04/19/22 04/10/23 04/19/22 History 50 mg tablet (Senna-Time S) sevelamer carbonate 800 mg tablet 1,600 mg PO TIDWM 04/19/22 04/19/22 04/19/22 History fluticasone fur. 200 mcg-umeclid 1 ea inhalation DAILY 04/10/23 04/10/23 Unknown History 62.5 mcg-vilant 25 mcg inhalat.powder (Trelegy Ellipta) insulin glargine 100 unit/mL (3 34 unit subcut BEDTIME 04/10/23 04/10/23 Unknown History mL) subcutaneous pen (Lantus Solostar U-100 Insulin) insulin lispro 100 unit/mL 6 unit subcut TID 04/10/23 04/10/23 Unknown History subcutaneous pen labetalol 100 mg tablet 100 mg PO BID 04/10/23 04/10/23 Unknown History lisinopril 10 mg tablet 10 mg PO DAILY 04/10/23 04/10/23 Unknown History nifedipine 60 mg tablet,extended 60 mg PO BID 04/10/23 04/10/23 Unknown History release 24 hr sucroferric oxyhydroxide 500 mg 500 mg PO TID 04/10/23 04/10/23 Unknown History chewable tablet (Velphoro) acetaminophen 500 mg tablet (Pain 500 mg PO Q4H PRN Pain 04/11/23 04/11/23 Unknown History Relief Extra Strength (acetaminophen)) Physical Exam Vital Signs: Vital Signs: Last Vital Signs Temp 99.2 F 04/16/23 08:00 Pulse 73 04/16/23 08:00 Resp 16 04/16/23 08:00 BP 156/69 H 04/16/23 08:00 Pulse Ox 93 04/16/23 08:00 O2 Del Method Nasal Cannula 04/16/23 08:00 O2 Flow Rate 1 04/16/23 08:00 Oxygen Flow Rate 1 04/15/23 07:00 BMI result Body Mass Index 31.6 Const: General: no acute distress and confusion (Arousable) Orientation/consciousness: confusion (Arousable) Eyes: Sclerae: sclerae normal EOM: EOMs intact bilaterally Neck: Neck: Yes no lymphadenopathy, Yes trachea midline and Yes supple Resp: Effort & Inspection: normal respiratory effort and no respiratory distress Auscultation: other (Right-sided crackles) Cardio: Rate: regular rate Rhythm: regular rhythm Heart sounds: no gallops, no murmurs and no rubs GI: Palpation (GI): Soft to palpation and Other GI palpation findings present ( Nontender) Auscultation: normal bowel sounds Neuro: General: confusion (Arousable) Extrem: General: No clubbing, No cyanosis and Yes edema (Trace bilateral) Results Labs 04/10/23 12:56 04/16/23 09:38 Labs: BMP 04/16/23 09:38 Sodium 137 Potassium 7.1 H* D Chloride 99 Carbon Dioxide 22 BUN 80 H Creatinine 10.46 H* Calcium 9.0 Microbiology Microbiology Results: Microbiology 04/11/23 14:07 Pleural Fluid Gram Stain - Final 04/11/23 14:07 Pleural Fluid Routine Culture - Final No growth after 2 days 04/11/23 14:07 Pleural Fluid Anaerobic Culture - Final NO GROWTH AFTER 5 DAYS Assessment and Plan (1) Metabolic acidosis: Status: Acute (2) ESRD on dialysis: Status: Acute (3) Acute on chronic systolic and diastolic heart failure, NYHA class 3: Status: Acute (4) Pleural effusion: Status: Acute (5) ROBERT (obstructive sleep apnea): Status: Acute Plan Impression: 67-year-old gentleman with underlying ESRD on hemodialysis now with worsening renal function and resultant metabolic acidosis with respiratory compensation. Recommendations: Patient requires dialysis today. At this time he is hemodynamically and respiratory stable and does not require intensive care unit level of care. Please notify for re-evaluation, if patient's clinical status changes.
[2023-04-16] MEDS: Dextrose 50 % 25 GM/50 ML SYRINGE IVPUSH (11:25)
[2023-04-16] MEDS: Calcium Gluconate/NaCl,Iso-Osm 2 GM/100 ML PLAST..BAG IV (11:25)
[2023-04-16] MEDS: Sodium Zirconium Cyclosilicate 10 GM POWD.PACK PO (11:25)
[2023-04-16] MEDS: Insulin Regular, Human 100 UNIT/ML 3 ML VIAL 10 UNIT IVPUSH (11:25)
[2023-04-16] MEDS: Albuterol Sulfate 2.5 MG, Albuterol Sulfate (0.083%) 2.5 MG 5 MG INHALE (11:30)
[2023-04-16 13:05] LABS: Glucose, Whole Blood 167 mg/dL (60-115)
--- NOTE | 2023-04-16 13:17 | PM.NEUROCN ---
History of Present Illness Data of Consult Service Date: 04/16/23 Primary Care Provider: Jade Lewis MD [facility] Reason for consult: Myoclonus 67 years old man with end-stage renal disease on dialysis I was asked to see for myoclonus. When I saw him he was on dialysis machine. He was not in any distress and did not volunteer any symptoms. Myoclonic type of movements were noted by staff. Review of Systems Review of Systems: No recent cold or flu-like illness or complain of body pains PMFSH Past Medical History Medical History (Updated 04/16/23 @ 13:19 by Lavelle Mckeon MD) Anemia ESRD (end stage renal disease) Occlusive thrombus Pulmonary edema Noncompliance with CPAP treatment ROBERT (obstructive sleep apnea) Type 2 diabetes mellitus Hyperlipidemia Hypertension A-V fistula ESRD on dialysis Falling Congestive heart disease Dialysis complication Family History Family History (Updated 04/12/23 @ 10:32 by Jerad Severino MD) Father No problems noted. Mother No problems noted. Social History Social History Household Members: Family Housing: House Do you presently have visiting nurse or other home services: No Alcohol intake: never Comment: Pt refuses bed alarm Patient Tobacco Use Status: Former Tobacco user service: No Meds Allergies Allergy/AdvReac Type Severity Reaction Status Date / Time No Known Allergies Allergy Verified 09/28/22 11:38 Active Medications: Current Medications Acetaminophen (Acetaminophen 325 Mg Tablet) 650 mg PO Q6H PRN PRN Reason: Pain, Mild (Pain Scale 1-3) Last Admin: 04/15/23 09:23 Dose: 650 mg Albuterol Sulfate (Albuterol Sulfate 90 Mcg 8 Gm Inhaler) 2 puff INHALE Q4H PRN PRN Reason: Shortness Of Breath Allopurinol (Allopurinol 100 Mg Tablet) 100 mg PO MOWEFR@1600 [facility] Last Admin: 04/14/23 16:58 Dose: 100 mg Aspirin (Aspirin Enteric Coated 81 Mg Tablet.) 81 mg PO DAILY [facility] Last Admin: 04/16/23 08:26 Dose: 81 mg Atorvastatin Calcium (Atorvastatin Calcium 40 Mg Tablet) 40 mg PO DAILY [facility] Last Admin: 04/16/23 08:27 Dose: 40 mg Carvedilol (Carvedilol 12.5 Mg Tablet) 12.5 mg PO BID [facility]; Protocol Last Admin: 04/16/23 08:27 Dose: 12.5 mg Dextrose (Dextrose 50 % 25 Gm/50 Ml Syringe) 25 gm IVPUSH Q15M PRN; Protocol PRN Reason: per Hypoglycemia Standing Ord. Doxazosin Mesylate (Doxazosin Mesylate 2 Mg Tablet) 4 mg PO BEDTIME [facility]; Protocol Last Admin: 04/15/23 22:56 Dose: 4 mg Fluticasone/Umeclidinium/Vilanterol (Fluticasone/Umeclidinium/Vilanterol 200/62.5/25 Blst.W.Dev) 1 puff INHALE RDAILY [facility] Last Admin: 04/16/23 07:55 Dose: 1 puff Furosemide (Furosemide 40 Mg Tablet) 80 mg PO DAILY [facility]; Protocol Last Admin: 04/16/23 08:27 Dose: 80 mg Glucose (Glucose Gel 15 Gm Gel..Gram.) 15 gm PO Q15M PRN; Protocol PRN Reason: per Hypoglycemia Standing Ord. Insulin Human Lispro (Insulin Lispro 100 Unit/Ml 3 Ml Vial) 0 unit SUBCUT QIDACHS [facility]; Protocol Last Admin: 04/16/23 11:44 Dose: Not Given Lidocaine (Lidocaine 4 % Patch Adh..Patch) 1 patch TRANSDERMA DAILY [facility]; Protocol Last Admin: 04/16/23 08:26 Dose: 1 patch Nifedipine (Nifedipine Er 60 Mg Tab.Er.24) 60 mg PO BID [facility]; Protocol Last Admin: 04/16/23 08:26 Dose: 60 mg Non-Formulary Medication (Sucroferric Oxyhydroxide [Velphoro]) 500 mg PO TID [facility] Omeprazole (Omeprazole 20 Mg Capsule.Dr) 20 mg PO DAILY@0630 [facility] Last Admin: 04/16/23 06:22 Dose: 20 mg Oxycodone HCl (Oxycodone Hcl Immed Release 5 Mg Tablet) 7.5 mg PO Q6H PRN PRN Reason: Pain, Severe (Pain Scale 7-10) Last Admin: 04/15/23 06:00 Dose: 7.5 mg Polyethylene Glycol (Polyethylene Glycol 3350 17 Gm Powd.Pack) 17 gm PO DAILY PRN PRN Reason: Constipation Last Admin: 04/16/23 08:26 Dose: 17 gm Pregabalin (Pregabalin 75 Mg Capsule) 75 mg PO DAILY [facility] Last Admin: 04/16/23 08:27 Dose: 75 mg Senna/Docusate Sodium (Sennosides/Docusate Sodium Tablet) 1 tab PO DAILY PRN PRN Reason: Constipation Last Admin: 04/15/23 06:20 Dose: 1 tab Sodium Chloride (0.9 % Sodium Chloride Flush 3 Ml Syringe) 3 ml IVFLUSH QSHIFT [facility] Last Admin: 04/16/23 08:28 Dose: 3 ml Home Medications Medication Instructions Recorded Confirmed Last Taken Type albuterol sulfate 90 mcg/actuation 2 puff inhalation Q4H PRN 04/19/22 04/10/23 Unknown History aerosol inhaler Shortness Of Breath allopurinol 100 mg tablet 100 mg PO MOWEFR@1600 04/19/22 04/10/23 04/18/22 History apixaban 5 mg tablet (Eliquis) 5 mg PO BID 04/19/22 04/19/22 04/19/22 History aspirin 81 mg tablet,delayed 81 mg PO DAILY 04/19/22 04/10/23 04/19/22 History release atorvastatin 40 mg tablet 40 mg PO DAILY 04/19/22 04/10/23 04/19/22 History carvedilol 3.125 mg tablet 3.125 mg PO BID 04/19/22 04/11/23 04/19/22 History doxazosin 4 mg tablet 4 mg PO BEDTIME 04/19/22 04/10/23 04/18/22 History furosemide 80 mg tablet 80 mg PO DAILY 04/19/22 04/10/23 04/19/22 History hydralazine 25 mg tablet 25 mg PO TID 04/19/22 04/19/22 04/19/22 History ipratropium 0.5 mg-albuterol 3 mg 3 ml inhalation Q4H PRN Wheezing 04/19/22 04/10/23 Unknown History (2.5 mg base)/3 mL nebulization soln omeprazole 20 mg capsule,delayed 20 mg PO DAILY 04/19/22 04/10/23 04/19/22 History release polyethylene glycol 3350 17 17 g PO DAILY PRN Constipation 04/19/22 04/10/23 Unknown History gram/dose oral powder pregabalin 75 mg capsule 75 mg PO DAILY 04/19/22 04/10/23 04/19/22 History sennosides 8.6 mg-docusate sodium 1 tab PO DAILY PRN Constipation 04/19/22 04/10/23 04/19/22 History 50 mg tablet (Senna-Time S) sevelamer carbonate 800 mg tablet 1,600 mg PO TIDWM 04/19/22 04/19/22 04/19/22 History fluticasone fur. 200 mcg-umeclid 1 ea inhalation DAILY 04/10/23 04/10/23 Unknown History 62.5 mcg-vilant 25 mcg inhalat.powder (Trelegy Ellipta) insulin glargine 100 unit/mL (3 34 unit subcut BEDTIME 04/10/23 04/10/23 Unknown History mL) subcutaneous pen (Lantus Solostar U-100 Insulin) insulin lispro 100 unit/mL 6 unit subcut TID 04/10/23 04/10/23 Unknown History subcutaneous pen labetalol 100 mg tablet 100 mg PO BID 04/10/23 04/10/23 Unknown History lisinopril 10 mg tablet 10 mg PO DAILY 04/10/23 04/10/23 Unknown History nifedipine 60 mg tablet,extended 60 mg PO BID 04/10/23 04/10/23 Unknown History release 24 hr sucroferric oxyhydroxide 500 mg 500 mg PO TID 04/10/23 04/10/23 Unknown History chewable tablet (Velphoro) acetaminophen 500 mg tablet (Pain 500 mg PO Q4H PRN Pain 04/11/23 04/11/23 Unknown History Relief Extra Strength (acetaminophen)) Physical Exam Vital Signs: Vital Signs: Last Vital Signs Temp 99.2 F 04/16/23 08:00 Pulse 63 04/16/23 11:35 Resp 16 04/16/23 11:35 BP 156/69 H 04/16/23 08:00 Pulse Ox 93 04/16/23 08:00 O2 Del Method Nasal Cannula 04/16/23 08:00 O2 Flow Rate 1 04/16/23 08:00 Oxygen Flow Rate 1 04/15/23 07:00 BMI result Body Mass Index 31.6 Neuro: Other: He was sleeping when I arrived but I was able to wake him up. He answered questions appropriately. He was not in any distress. Speech or language were normal. Face was symmetrical. There was no abnormal eye movement. He was having restlessness of both legs. No definite fasciculations or myoclonus was noted. Deep tendon reflexes are absent with flexor plantars. Results Labs 04/10/23 12:56 04/16/23 09:38 Labs: BMP 04/16/23 09:38 Sodium 137 Potassium 7.1 H* D Chloride 99 Carbon Dioxide 22 BUN 80 H Creatinine 10.46 H* Calcium 9.[address] revealed mild diffuse cerebral atrophy and mild chronic microvascular ischemic changes. Microbiology Microbiology Results: Microbiology 04/11/23 14:07 Pleural Fluid Gram Stain - Final 04/11/23 14:07 Pleural Fluid Routine Culture - Final No growth after 2 days 04/11/23 14:07 Pleural Fluid Anaerobic Culture - Final NO GROWTH AFTER 5 DAYS Assessment and Plan (1) Restless leg syndrome: Status: Acute Restless leg syndrome, which is a common problem in renal patient especially when there was significant uremia. He would likely get better after dialysis as his numbers are quite off. If he continues to complain of restlessness afterwards, 100-300 mg of gabapentin at bedtime is recommended. I would avoid giving treatment for restless legs syndrome during daytime, which would make it worse. Purpose of treatment is better nighttime sleep. Procedures Date of Service Date of Service: 04/16/23
--- NOTE | 2023-04-16 13:41 | HO.PM.IMPN ---
Subjective Subjective Date of Service: 04/16/23 Interval History: hyper kalemia , drowiness,some twiching Review of Systems Easily arousable, denies any nausea vomiting or abdominal pain Feel drowsy Physical Exam Vital Signs: Vital Signs: Last Vital Signs Temp 99.2 F 04/16/23 08:00 Pulse 63 04/16/23 11:35 Resp 16 04/16/23 11:35 BP 156/69 H 04/16/23 08:00 Pulse Ox 93 04/16/23 08:00 O2 Del Method Nasal Cannula 04/16/23 08:00 O2 Flow Rate 1 04/16/23 08:00 Oxygen Flow Rate 1 04/15/23 07:00 BMI result Body Mass Index 31.6 Appearance: dwrosy but easily aurosable cvs: rrr, [id number]. res: clear to auscultation ,diminshed bases right>left abd: no rebound or guarding ,nt, bs present. ext pulses present , no cyanosis . neuro: moves allext Objective Data Active Medications Acetaminophen (Acetaminophen 325 Mg Tablet) 650 mg PO Q6H PRN PRN Reason: Pain, Mild (Pain Scale 1-3) Last Admin: 04/15/23 09:23 Dose: 650 mg Documented By: KEITH Albuterol Sulfate (Albuterol Sulfate 90 Mcg 8 Gm Inhaler) 2 puff INHALE Q4H PRN PRN Reason: Shortness Of Breath Allopurinol (Allopurinol 100 Mg Tablet) 100 mg PO MOWEFR@1600 [facility] Last Admin: 04/14/23 16:58 Dose: 100 mg Documented By: KEITH Aspirin (Aspirin Enteric Coated 81 Mg Tablet.) 81 mg PO DAILY [facility] Last Admin: 04/16/23 08:26 Dose: 81 mg Documented By: KEITH Atorvastatin Calcium (Atorvastatin Calcium 40 Mg Tablet) 40 mg PO DAILY [facility] Last Admin: 04/16/23 08:27 Dose: 40 mg Documented By: KEITH Carvedilol (Carvedilol 12.5 Mg Tablet) 12.5 mg PO BID [facility]; Protocol Last Admin: 04/16/23 08:27 Dose: 12.5 mg Documented By: KEITH Dextrose (Dextrose 50 % 25 Gm/50 Ml Syringe) 25 gm IVPUSH Q15M PRN; Protocol PRN Reason: per Hypoglycemia Standing Ord. Doxazosin Mesylate (Doxazosin Mesylate 2 Mg Tablet) 4 mg PO BEDTIME [facility]; Protocol Last Admin: 04/15/23 22:56 Dose: 4 mg Documented By: DAVID Fluticasone/Umeclidinium/Vilanterol (Fluticasone/Umeclidinium/Vilanterol 200/62.5/25 Blst.W.Dev) 1 puff INHALE RDAILY [facility] Last Admin: 04/16/23 07:55 Dose: 1 puff Documented By: EVENS Furosemide (Furosemide 40 Mg Tablet) 80 mg PO DAILY [facility]; Protocol Last Admin: 04/16/23 08:27 Dose: 80 mg Documented By: KEITH Glucose (Glucose Gel 15 Gm Gel..Gram.) 15 gm PO Q15M PRN; Protocol PRN Reason: per Hypoglycemia Standing Ord. Insulin Human Lispro (Insulin Lispro 100 Unit/Ml 3 Ml Vial) 0 unit SUBCUT QIDACHS [facility]; Protocol Last Admin: 04/16/23 11:44 Dose: Not Given Documented By: KEITH Non-Admin Reason: Physician Held Med Lidocaine (Lidocaine 4 % Patch Adh..Patch) 1 patch TRANSDERMA DAILY [facility]; Protocol Last Admin: 04/16/23 08:26 Dose: 1 patch Documented By: KEITH Nifedipine (Nifedipine Er 60 Mg Tab.Er.24) 60 mg PO BID [facility]; Protocol Last Admin: 04/16/23 08:26 Dose: 60 mg Documented By: KEITH Non-Formulary Medication (Sucroferric Oxyhydroxide [Velphoro]) 500 mg PO TID [facility] Omeprazole (Omeprazole 20 Mg Capsule.Dr) 20 mg PO DAILY@0630 [facility] Last Admin: 04/16/23 06:22 Dose: 20 mg Documented By: GILMAR Oxycodone HCl (Oxycodone Hcl Immed Release 5 Mg Tablet) 7.5 mg PO Q6H PRN PRN Reason: Pain, Severe (Pain Scale 7-10) Last Admin: 04/15/23 06:00 Dose: 7.5 mg Documented By: DAVID Polyethylene Glycol (Polyethylene Glycol 3350 17 Gm Powd.Pack) 17 gm PO DAILY PRN PRN Reason: Constipation Last Admin: 04/16/23 08:26 Dose: 17 gm Documented By: KEITH Pregabalin (Pregabalin 75 Mg Capsule) 75 mg PO DAILY [facility] Last Admin: 04/16/23 08:27 Dose: 75 mg Documented By: KEITH Senna/Docusate Sodium (Sennosides/Docusate Sodium Tablet) 1 tab PO DAILY PRN PRN Reason: Constipation Last Admin: 04/15/23 06:20 Dose: 1 tab Documented By: DAVID Sodium Chloride (0.9 % Sodium Chloride Flush 3 Ml Syringe) 3 ml IVFLUSH QSHIFT [facility] Last Admin: 04/16/23 08:28 Dose: 3 ml Documented By: KEITH Labs 04/10/23 12:56 04/16/23 09:38 Labs: Laboratory Results - last 24 hr 04/15/23 04/15/23 04/16/23 16:22 20:20 08:01 VBG pH VBG pCO2 VBG pO2 VBG HCO3 VBG O2 Saturation VBG Base Excess Anion Gap Estim Creat Clear Calc Estimated GFR POC Glucose 179 H 204 H 139 H Random Glucose Calcium Phosphorus 04/16/23 04/16/23 04/16/23 09:38 09:42 11:04 VBG pH 7.29 L VBG pCO2 46 VBG pO2 75 VBG HCO3 22 VBG O2 Saturation 94.0 VBG Base Excess -3.8 Anion Gap 23 H Estim Creat Clear Calc 6.7 Estimated GFR 5 POC Glucose 236 H Random Glucose 198 H Calcium 9.0 Phosphorus 10.3 H 04/16/23 13:01 VBG pH VBG pCO2 VBG pO2 VBG HCO3 VBG O2 Saturation VBG Base Excess Anion Gap Estim Creat Clear Calc Estimated GFR POC Glucose 167 H Random Glucose Calcium Phosphorus Microbiology Microbiology Results: Microbiology 04/11/23 14:07 Gram Stain - Final Pleural Fluid Routine Culture - Final No growth after 2 days Anaerobic Culture - Final NO GROWTH AFTER 5 DAYS Assessment and Plan (1) ESRD on dialysis: Status: Acute (2) Acute on chronic systolic and diastolic heart failure, NYHA class 3: Status: Acute Plan 67 years old man admitted with: Hypoxemic respiratory failure -etiology unclear-multifactorial( chf-etiology unclear ,esrd ) cxr seems similar to before . Continue supplemental oxygen to keep oxygen saturation above 90%. IR consult for thoracentesis-added pleural fluid labs. Aspirin on hold (not longer taking Eliquis). Check echocardiogram: ef low in 30% Continue Lasix,Seen by Cardiology: switched labetalol to Coreg. May also need to consider switching lisinopril to Entresto if if okay with Nephrology,consider to start Jardiance. incentive harpal,chest physio, head elevation b/l lymph nodes on ct neck: Discussed with oncology and pulmonology recommended outpatient workup and management according has neck pain ( ct scan shows DJd): continue tylenol,lidocaine patch,added flexril. Esrd on HD- has ph 7.29 ,hyperkalemia ,drowsy ,some twiching ct head neg ekg shows peak t waves Renal diet. d/w nephro : given insulin+destrose ,loklema,albuterol-patient will be going for HD.will need emergent HD. twiching gee -added neurochecks ,if does not improve -will consider neurology eval. also fs q1hr for next 6 hour -if stable then we can switch back to regular sliding scale . repeat bmp after hd. need to bring Velphoro from home . Essential hypertension. nifedipine and coreg.off lisnipril for 3 days due to hyperkalemia. Neuropathy. Continue pregabalin. Gout. Continue allopurinol. Type 2 diabetes mellitus. fs with coverage ,avoid coverage below 200 mg/dl. Anemia. Chronic. Continue to monitor hemoglobin. Hyperlipidemia. Continue statin. Obstructive sleep apnea. Hx of noncompliance with CPAP treatment. d/w pulm:noctural pulse oxymetry -patient qualify for oxygen according to nocturnal pulse oximetry . added cpap if patient allsows. DVT prophylaxis: SCDs only (possible thoracentesis) ongoing hospitalization need for possible rehab placement. Quality Stroke Does the patient have a stroke diagnosis?: No VTE Prior VTE?: No VTE Risk Level:: Medical - moderate - high VTE Device Contraindication: N/A - Device Ordered VTE Drug Contraindication: Treatment Not Indicated
[2023-04-16 14:26] LABS: Glucose, Whole Blood 164 mg/dL (60-115)
[2023-04-16 15:10] LABS: Glucose, Whole Blood 136 mg/dL (60-115)
[2023-04-16 15:45] LABS: Anion Gap 17 (12-20); Blood Urea Nitrogen 25 mg/dL (9-16); Calcium 9.2 mg/dL (8.4-10.2); Carbon Dioxide 21 mmol/L (22-29); Chloride 99 mmol/L (96-108); Creatinine Clr Calc Pharmacy 15.3; Estimated Glomerular Filt Rate 13; Glucose Random 135 mg/dL (60-115); Potassium 3.5 mmol/L (3.3-5.1); Sodium 133 mmol/L (135-145)
[2023-04-16 16:01] LABS: Glucose, Whole Blood 136 mg/dL (60-115)
[2023-04-16 18:46] LABS: Glucose, Whole Blood 150 mg/dL (60-115)
[2023-04-16] MEDS: Doxazosin Mesylate 2 MG TABLET 4 MG PO (21:32)
[2023-04-16 21:49] LABS: Glucose, Whole Blood 143 mg/dL (60-115)
--- NOTE | 2023-04-16 22:08 | PC.RT ---
Pt refusing NOC CPAP; states he does not use
[2023-04-17] VITALS (7 sets, daily range): BP systolic 126–170; BP diastolic 48–85; PULSE 57–76; RESP 14–18; TEMP 36.2–37.3; O2SAT 92–100
[2023-04-17] MEDS: Omeprazole 20 MG CAPSULE.DR PO (06:01)
[2023-04-17 07:17] LABS: Glucose, Whole Blood 116 mg/dL (60-115)
--- NOTE | 2023-04-17 08:27 | PC.NURSE ---
Patient to dialysis at this time
--- NOTE | 2023-04-17 10:53 | MHC.CM.PN ---
Expanded search for STR, received possible bed at [facility], awaiting ins. auth and DC. pt is now on O2, will need it set up at home if DC to home. CM to follow.
[2023-04-17 11:00] LABS: Glucose, Whole Blood 131 mg/dL (60-115)
[2023-04-17 12:33] LABS: VBG Base Excess -4.6 mmol/L; VBG HCO3 22 mmol/L (22-26); VBG pCO2 47 mmHg; VBG pH 7.27 (7.32-7.43); VBG pO2 160 mmHg
[2023-04-17 12:34] LABS: Venous Blood Gas Refer to POC result
[2023-04-17 12:37] LABS: Ammonia 28 umol/L (13-55)
[2023-04-17 13:05] LABS: Alanine Aminotransferase 44 U/L (0-40); Albumin Level 4.1 g/dL (3.5-5.0); Alkaline Phosphatase 280 U/L (39-117); Aspartate Amino Transferase 39 U/L (5-37); Bilirubin Direct 0.2 mg/dL (0.0-0.5); Bilirubin Total 0.4 mg/dL (0.0-1.0); Total Protein 8.1 g/dL (6.5-8.0)
[2023-04-17 13:11] LABS: Anion Gap 18 (12-20); Blood Urea Nitrogen 23 mg/dL (9-16); Calcium 9.1 mg/dL (8.4-10.2); Carbon Dioxide 21 mmol/L (22-29); Chloride 98 mmol/L (96-108); Creatinine Clr Calc Pharmacy 15.1; Estimated Glomerular Filt Rate 13; Glucose Random 129 mg/dL (60-115); Potassium 4.3 mmol/L (3.3-5.1); Sodium 133 mmol/L (135-145)
--- NOTE | 2023-04-17 13:40 | HO.PM.IMPN ---
Subjective Subjective Date of Service: 04/17/23 Interval History: uremia Review of Systems Patient is still somewhat drowsy this morning, but after late in the dialysis was little confused and subsequently re-evaluated seems more awake. Denies any cough or phlegm or chest pain, shortness for breath improving Physical Exam Vital Signs: Vital Signs: Last Vital Signs Temp 97.1 F 04/17/23 11:00 Pulse 71 04/17/23 11:00 Resp 16 04/17/23 11:00 BP 126/48 L 04/17/23 11:00 Pulse Ox 97 04/17/23 11:00 O2 Del Method Nasal Cannula 04/17/23 11:00 O2 Flow Rate 2 04/17/23 11:00 Oxygen Flow Rate 1 04/16/23 07:00 BMI result Body Mass Index 31.6 Appearance: dwrosy but easily aurosable cvs: rrr, [id number]. res: clear to auscultation ,diminshed bases right>left abd: no rebound or guarding ,nt, bs present. ext pulses present , no cyanosis . neuro: moves allext Objective Data Active Medications Acetaminophen (Acetaminophen 325 Mg Tablet) 650 mg PO Q6H PRN PRN Reason: Pain, Mild (Pain Scale 1-3) Last Admin: 04/15/23 09:23 Dose: 650 mg Documented By: KEITH Albuterol Sulfate (Albuterol Sulfate 90 Mcg 8 Gm Inhaler) 2 puff INHALE Q4H PRN PRN Reason: Shortness Of Breath Allopurinol (Allopurinol 100 Mg Tablet) 100 mg PO MOWEFR@1600 REPLACED BY [facility] Last Admin: 04/14/23 16:58 Dose: 100 mg Documented By: KEITH Aspirin (Aspirin Enteric Coated 81 Mg Tablet.) 81 mg PO DAILY [facility]PLACED BY [facility] Last Admin: 04/16/23 08:26 Dose: 81 mg Documented By: KEITH Atorvastatin Calcium (Atorvastatin Calcium 40 Mg Tablet) 40 mg PO DAILY [facility]PL[facility] BY [facility] Last Admin: 04/16/23 08:27 Dose: 40 mg Documented By: KEITH Carvedilol (Carvedilol 12.5 Mg Tablet) 12.5 mg PO BID [facility]PL[facility]ED BY [facility]; Protocol Last Admin: 04/17/23 12:11 Dose: Not Given Documented By: TRI Non-Admin Reason: Decreased Blood Pressure Dextrose (Dextrose 50 % 25 Gm/50 Ml Syringe) 25 gm IVPUSH Q15M PRN; Protocol PRN Reason: per Hypoglycemia Standing Ord. Doxazosin Mesylate (Doxazosin Mesylate 2 Mg Tablet) 4 mg PO BEDTIME [facility]PL[facility]ED BY [facility]; Protocol Last Admin: 04/16/23 21:32 Dose: 4 mg Documented By: ANAM Fluticasone/Umeclidinium/Vilanterol (Fluticasone/Umeclidinium/Vilanterol 200/62.5/25 Blst.W.Dev) 1 puff INHALE RDAILY [facility]PLACED BY [facility] Last Admin: 04/17/23 11:21 Dose: Not Given Documented By: EMELIA Non-Admin Reason: See Note Furosemide (Furosemide 40 Mg Tablet) 80 mg PO DAILY [facility]PL[facility] BY [facility]; Protocol Last Admin: 04/17/23 12:12 Dose: Not Given Documented By: TRI Non-Admin Reason: Decreased Blood Pressure Glucose (Glucose Gel 15 Gm Gel..Gram.) 15 gm PO Q15M PRN; Protocol PRN Reason: per Hypoglycemia Standing Ord. Insulin Human Lispro (Insulin Lispro 100 Unit/Ml 3 Ml Vial) 0 unit SUBCUT QIDACHS REPLACED BY [facility]; Protocol Last Admin: 04/17/23 11:04 Dose: Not Given Documented By: TRI Non-Admin Reason: No Insulin Coverage Lidocaine (Lidocaine 4 % Patch Adh..Patch) 1 patch TRANSDERMA DAILY [facility]PLACED BY [facility]; Protocol Last Admin: 04/16/23 08:26 Dose: 1 patch Documented By: KEITH Nifedipine (Nifedipine Er 60 Mg Tab.Er.24) 60 mg PO BID [facility]PLACED BY [facility]; Protocol Last Admin: 04/17/23 12:12 Dose: Not Given Documented By: TRI Non-Admin Reason: Decreased Blood Pressure Pt Own (Sucroferric Oxyhydroxide [ Velphoro] 500 Mg Tablet,Chewable) 500 mg PO TID REPLACED BY [facility] Last Admin: 04/16/23 21:34 Dose: 500 mg Documented By: ANAM Omeprazole (Omeprazole 20 Mg Capsule.) 20 mg PO DAILY@0630 REPLACED BY [facility] Last Admin: 04/17/23 06:01 Dose: 20 mg Documented By: SAMIRA Oxycodone HCl (Oxycodone Hcl Immed Release 5 Mg Tablet) 7.5 mg PO Q6H PRN PRN Reason: Pain, Severe (Pain Scale 7-10) Last Admin: 04/15/23 06:00 Dose: 7.5 mg Documented By: DAVID Polyethylene Glycol (Polyethylene Glycol 3350 17 Gm Powd.Pack) 17 gm PO DAILY PRN PRN Reason: Constipation Last Admin: 04/16/23 08:26 Dose: 17 gm Documented By: KEITH Pregabalin (Pregabalin 75 Mg Capsule) 75 mg PO DAILY [facility]PLACED BY [facility] Last Admin: 04/16/23 08:27 Dose: 75 mg Documented By: KEITH Senna/Docusate Sodium (Sennosides/Docusate Sodium Tablet) 1 tab PO DAILY PRN PRN Reason: Constipation Last Admin: 04/15/23 06:20 Dose: 1 tab Documented By: DAVID Sodium Chloride (0.9 % Sodium Chloride Flush 3 Ml Syringe) 3 ml IVFLUSH QSHIFT REPLACED BY [facility] Last Admin: 04/16/23 21:32 Dose: 3 ml Documented By: GIORGIORISM Labs 04/10/23 12:56 04/17/23 12:24 Labs: Laboratory Results - last 24 hr 04/16/23 04/16/23 04/16/23 14:14 15:06 15:24 VBG pH VBG pCO2 VBG pO2 VBG HCO3 VBG O2 Saturation VBG Base Excess Anion Gap 17 Estim Creat Clear Calc 15.3 Estimated GFR 13 POC Glucose 164 H 136 H Random Glucose 135 H Calcium 9.2 Total Bilirubin Direct Bilirubin AST ALT Alkaline Phosphatase Ammonia Total Protein Albumin 04/16/23 04/16/23 04/16/23 15:56 18:41 20:11 VBG pH VBG pCO2 VBG pO2 VBG HCO3 VBG O2 Saturation VBG Base Excess Anion Gap Estim Creat Clear Calc Estimated GFR POC Glucose 136 H 150 H 143 H Random Glucose Calcium Total Bilirubin Direct Bilirubin AST ALT Alkaline Phosphatase Ammonia Total Protein Albumin 04/17/23 04/17/23 04/17/23 07:13 10:55 12:24 VBG pH VBG pCO2 VBG pO2 VBG HCO3 VBG O2 Saturation VBG Base Excess Anion Gap 18 Estim Creat Clear Calc 15.1 Estimated GFR 13 POC Glucose 116 H 131 H Random Glucose 129 H Calcium 9.1 Total Bilirubin 0.4 Direct Bilirubin 0.2 AST 39 H ALT 44 H Alkaline Phosphatase 280 H Ammonia 28 Total Protein 8.1 H Albumin 4.1 04/17/23 12:28 VBG pH 7.27 L VBG pCO2 47 VBG pO2 160 VBG HCO3 22 VBG O2 Saturation 99.0 VBG Base Excess -4.6 Anion Gap Estim Creat Clear Calc Estimated GFR POC Glucose Random Glucose Calcium Total Bilirubin Direct Bilirubin AST ALT Alkaline Phosphatase Ammonia Total Protein Albumin Microbiology Microbiology Results: Microbiology 04/11/23 14:07 Gram Stain - Final Pleural Fluid Routine Culture - Final No growth after 2 days Anaerobic Culture - Final NO GROWTH AFTER 5 DAYS Assessment and Plan (1) ESRD on dialysis: Status: Acute (2) Acute on chronic systolic and diastolic heart failure, NYHA class 3: Status: Acute Plan 67 years old man admitted with: Hypoxemic respiratory failure -etiology unclear-multifactorial( chf-etiology unclear ,esrd ) cxr seems similar to before . Continue supplemental oxygen to keep oxygen saturation above 90%. IR consult for thoracentesis-added pleural fluid labs. pathology report- No malignancy identified Check echocardiogram: ef low in 30% Seen by Cardiology: switched labetalol to Coreg. May also need to consider switching lisinopril to Entresto if if okay with Nephrology,consider to start Jardiance. incentive harpal,chest physio, head elevation b/l lymph nodes on ct neck: Discussed with oncology and pulmonology recommended outpatient workup and management according has neck pain ( ct scan shows DJd): continue tylenol,lidocaine patch,added flexril. possible toxic metabolic encephalopathy: Esrd on HD-uremia on 04/16/23:has ph 7.29 ,hyperkalemia ,drowsy ,some twiching. ct head neg received insulin+destrose ,loklema,albuterol and got emergent HDon 04/16 seems somewhat improving but still drowsy,not much twiching noted today neurology on 04/16: thought might have restless leg synd , but patient still has flactuating drowsiness ,weak,intermittent confusion-these feels somewhat improving after hd. vbg: ph low 7.27 ,lft's- mild elevated ,ammonia normal. neurology is aware to follow up today . mild elevated lfts-? related to chf. will add abd lorenao moniter lfts ammonia normal Essential hypertension. hold nifedipine and coreg for today bp is boderline .off lisnipril due to hyperkalemia. Neuropathy. Continue pregabalin. Gout. Continue allopurinol. Type 2 diabetes mellitus. fs with coverage ,avoid coverage below 200 mg/dl. Anemia. Chronic. Continue to monitor hemoglobin. Hyperlipidemia. Continue statin. Obstructive sleep apnea. Hx of noncompliance with CPAP treatment. d/w pulm:noctural pulse oxymetry -patient qualify for oxygen according to nocturnal pulse oximetry . added cpap if patient allows. DVT prophylaxis: SCDs only (possible thoracentesis) ongoing hospitalization need for toxic metabolic encephalopathy-fluctuating, need dialysis, as well as neurology followup. Quality Stroke Does the patient have a stroke diagnosis?: No VTE Prior VTE?: No VTE Risk Level:: Medical - moderate - high VTE Device Contraindication: N/A - Device Ordered VTE Drug Contraindication: Treatment Not Indicated
[2023-04-17] MEDS: Acetaminophen 325 MG TABLET 650 MG PO (13:49)
[2023-04-17] MEDS: Aspirin Enteric Coated 81 MG TABLET.DR PO (13:49)
[2023-04-17] MEDS: 0.9 % Sodium Chloride Flush 3 ML SYRINGE IVFLUSH ×3 (13:51→20:14)
[2023-04-17] MEDS: ondansetron HCL 4 MG/2 ML VIAL IVPUSH (14:00)
[2023-04-17 16:33] LABS: Glucose, Whole Blood 208 mg/dL (60-115)
[2023-04-17] MEDS: Insulin Lispro 100 UNIT/ML 3 ML VIAL SUBCUT ×2 (16:59→21:42)
[2023-04-17] MEDS: allopurinoL 100 MG TABLET PO (17:00)
--- NOTE | 2023-04-17 17:54 | P.PNNP_ITS ---
Subjective Subjective Date of Service: 04/17/23 Interval history: Seen and examined,e vents noted RN notes occ jerky movements dinner has sweet potato--high in K Physical Exam 2 Vital Signs: Vital Signs: Last Vital Signs Temp 98.7 F 04/17/23 15:09 Pulse 57 04/17/23 15:09 Resp 16 04/17/23 15:09 BP 134/63 04/17/23 15:09 Pulse Ox 94 04/17/23 15:09 O2 Del Method Nasal Cannula 04/17/23 15:09 O2 Flow Rate 2 04/17/23 15:09 Oxygen Flow Rate 1 04/16/23 07:00 BMI result Body Mass Index 31.6 Const: General: healthy appearing, comfortable, no acute distress, alert and awake Nutritional Appearance: well nourished Orientation/consciousness: p atient oriented x3 HEENT: Other: Unremarkable Head: Yes normal to inspection, Yes normocephalic and Yes atraumatic Eyes: Eyelids: Yes eyelids normal Conjunctivae: conjunctivae normal S clerae: sclerae normal Corneas: corneas normal Pupils: Equal, round and reactive pupils present EOM: EOMs intact bilaterally Neck: Neck: Yes normal visual inspection and Yes full ROM Chest: Chest palpation & inspection: normal inspection of the chest Resp: Other: Diminished breath sounds, but no wheezing. Crackles in the right lung base Effort & Inspection: normal respiratory effort, able to speak in complete sentences and not labored Auscultation: crackles Cardio: Palpation: normal PMI Heart sounds: S1 normal heart sound present, S2 normal heart sound present, no gallops, Murmur heart sound present systolic II/ and no rubs GI: Inspection: No distended Palpation (GI): Soft to palpation, not firm, nontender, no guarding and not rigid Back/Spine/Pelvis: Other: unremarkable Skin: General skin exam: no rashes or lesions noted and elasticity normal Neuro: General: patient oriented x3 Cranial nerves: Yes Equal, round and reactive pupils present and Yes Bilaterally intact EOM present Cognition (Neuro): normal cognition Extrem: Other: Moving all extremities well without any obvious deformities General: Yes normal to inspection Psych: Mental Status: mental status grossly normal Objective Data Labs 04/10/23 12:56 04/17/23 12:24 Labs: Laboratory Results - last 24 hr 04/16/23 04/16/23 04/17/23 18:41 20:11 07:13 VBG pH VBG pCO2 VBG pO2 VBG HCO3 VBG O2 Saturation VBG Base Excess Sodium Potassium Chloride Carbon Dioxide Anion Gap BUN Creatinine Estim Creat Clear Calc Estimated GFR POC Glucose 150 H 143 H 116 H Random Glucose Calcium Total Bilirubin Direct Bilirubin AST ALT Alkaline Phosphatase Ammonia Total Protein Albumin 04/17/23 04/17/23 04/17/23 10:55 12:24 12:28 VBG pH 7.27 L VBG pCO2 47 VBG pO2 160 VBG HCO3 22 VBG O2 Saturation 99.0 VBG Base Excess -4.6 Sodium 133 L Potassium 4.3 D Chloride 98 Carbon Dioxide 21 L Anion Gap 18 BUN 23 H Creatinine 4.67 H* Estim Creat Clear Calc 15.1 Estimated GFR 13 POC Glucose 131 H Random Glucose 129 H Calcium 9.1 Total Bilirubin 0.4 Direct Bilirubin 0.2 AST 39 H ALT 44 H Alkaline Phosphatase 280 H Ammonia 28 Total Protein 8.1 H Albumin 4.1 04/17/23 16:26 VBG pH VBG pCO2 VBG pO2 VBG HCO3 VBG O2 Saturation VBG Base Excess Sodium Potassium Chloride Carbon Dioxide Anion Gap BUN Creatinine Estim Creat Clear Calc Estimated GFR POC Glucose 208 H Random Glucose Calcium Total Bilirubin Direct Bilirubin AST ALT Alkaline Phosphatase Ammonia Total Protein Albumin Microbiology Microbiology Results: Microbiology 04/11/23 14:07 Pleural Fluid Gram Stain - Final 04/11/23 14:07 Pleural Fluid Routine Culture - Final No growth after 2 days 04/11/23 14:07 Pleural Fluid Anaerobic Culture - Final NO GROWTH AFTER 5 DAYS Procedures Date of Service Date of Service: 04/17/23 Assessment & Plan Assessment and plan (1) ESRD on dialysis: Status: Acute Plan ESRD [facility] Non-adherence Pl effussion s/p tap CHF: card optimizing meds HyperK: dietary--sweet potato on dinner tray Jerky [employer]/asterixis: ques under dialyzed vs other REC: cont HD [facility]; check pre/post BUN at next HD; make sure diet is low K; may neuro eval for myolonic movement not related to uremia Time Spent With Patient Time: Total time managing care of this patient today ____ minutes. Progress Note: Quality Stroke Does the patient have a stroke diagnosis?: No
[2023-04-17] MEDS: Doxazosin Mesylate 2 MG TABLET 4 MG PO (20:14)
[2023-04-17 21:08] LABS: Glucose, Whole Blood 215 mg/dL (60-115)
[2023-04-18] VITALS (10 sets, daily range): BP systolic 110–169; BP diastolic 57–74; PULSE 59–70; RESP 18–20; TEMP 36.7–38.2; O2SAT 88–99; BMI 29.2
[2023-04-18] MEDS: Acetaminophen 325 MG TABLET 650 MG PO ×2 (00:01→19:52)
[2023-04-18] MEDS: Melatonin 3 MG TABLET 6 MG PO ×2 (02:10→19:53)
[2023-04-18 03:44] LABS: Glucose, Whole Blood 142 mg/dL (60-115)
[2023-04-18] MEDS: Omeprazole 20 MG CAPSULE.DR PO (06:13)
[2023-04-18 07:54] LABS: Glucose, Whole Blood 132 mg/dL (60-115)
[2023-04-18 09:16] LABS: Anion Gap 20 (12-20); Blood Urea Nitrogen 48 mg/dL (9-16); Calcium 8.6 mg/dL (8.4-10.2); Carbon Dioxide 19 mmol/L (22-29); Chloride 94 mmol/L (96-108); Creatinine Clr Calc Pharmacy 9.3; Estimated Glomerular Filt Rate 8; Glucose Random 106 mg/dL (60-115); Potassium 5.7 mmol/L (3.3-5.1); Sodium 127 mmol/L (135-145)
[2023-04-18] MEDS: Aspirin Enteric Coated 81 MG TABLET.DR PO (09:29)
[2023-04-18] MEDS: Pregabalin 75 MG CAPSULE PO (09:29)
[2023-04-18] MEDS: Atorvastatin Calcium 40 MG TABLET PO (09:30)
[2023-04-18] MEDS: 0.9 % Sodium Chloride Flush 3 ML SYRINGE IVFLUSH ×3 (09:31→19:55)
[2023-04-18] MEDS: Lidocaine 4 % Patch ADH..PATCH 1 PATCH TRANSDERMA (09:31)
[2023-04-18] MEDS: Furosemide 40 MG TABLET 80 MG PO (10:28)
[2023-04-18 11:17] LABS: Glucose, Whole Blood 203 mg/dL (60-115)
[2023-04-18] MEDS: Fluticasone/Umeclidinium/Vilanterol 200/62.5/25 BLST.W.DEV 1 PUFF INHALE (11:59)
[2023-04-18] MEDS: Insulin Lispro 100 UNIT/ML 3 ML VIAL SUBCUT (13:04)
--- NOTE | 2023-04-18 13:59 | HO.PM.IMPN ---
Subjective Subjective Date of Service: 04/19/23 Interval History: uremia, encephalopathy Patient was more alert this morning, compare to what was documented yesterday, however towards the afternoon become more somnolent but arousable with verbal command, no localized weakness Physical Exam Vital Signs: Vital Signs: Last Vital Signs Temp 98.8 F 04/18/23 11:37 Pulse 68 04/18/23 12:01 Resp 20 04/18/23 12:01 BP 156/70 H 04/18/23 11:37 Pulse Ox 88 L 04/18/23 13:37 O2 Del Method Nasal Cannula 04/18/23 11:37 O2 Flow Rate 2 04/18/23 11:37 Oxygen Flow Rate 1 04/16/23 07:00 BMI result Body Mass Index 29.2 Appearance: somonolent but easily aroused and was responding to verbal commands cvs: [id number], [id number]. res: clear to auscultation ,diminshed bases right>left abd: no rebound or guarding ,nt, bs present. ext pulses present , no cyanosis . neuro: moves allext Objective Data Active Medications Acetaminophen (Acetaminophen 325 Mg Tablet) 650 mg PO Q6H PRN PRN Reason: Pain, Mild (Pain Scale 1-3) Last Admin: 04/18/23 00:01 Dose: 650 mg Documented By: PATRICIA Albuterol Sulfate (Albuterol Sulfate 90 Mcg 8 Gm Inhaler) 2 puff INHALE Q4H PRN PRN Reason: Shortness Of Breath Allopurinol (Allopurinol 100 Mg Tablet) 100 mg PO MOWEFR@1600 [facility] Last Admin: 04/17/23 17:00 Dose: 100 mg Documented By: TRI Aspirin (Aspirin Enteric Coated 81 Mg Tablet.) 81 mg PO DAILY [facility] Last Admin: 04/18/23 09:29 Dose: 81 mg Documented By: RAMÓN Atorvastatin Calcium (Atorvastatin Calcium 40 Mg Tablet) 40 mg PO DAILY [facility] Last Admin: 04/18/23 09:30 Dose: 40 mg Documented By: RAMÓN Carvedilol (Carvedilol 12.5 Mg Tablet) 12.5 mg PO BID [facility]; Protocol Last Admin: 04/17/23 12:11 Dose: Not Given Documented By: TRI Non-Admin Reason: Decreased Blood Pressure Dextrose (Dextrose 50 % 25 Gm/50 Ml Syringe) 25 gm IVPUSH Q15M PRN; Protocol PRN Reason: per Hypoglycemia Standing Ord. Doxazosin Mesylate (Doxazosin Mesylate 2 Mg Tablet) 4 mg PO BEDTIME [facility]; Protocol Last Admin: 04/17/23 20:14 Dose: 4 mg Documented By: PATRICIA Fluticasone/Umeclidinium/Vilanterol (Fluticasone/Umeclidinium/Vilanterol 200/62.5/25 Blst.W.Dev) 1 puff INHALE RDAILY [facility] Last Admin: 04/18/23 11:59 Dose: 1 puff Documented By: BEAR Furosemide (Furosemide 40 Mg Tablet) 80 mg PO DAILY [facility]; Protocol Last Admin: 04/18/23 10:28 Dose: 80 mg Documented By: RAMÓN Glucose (Glucose Gel 15 Gm Gel..Gram.) 15 gm PO Q15M PRN; Protocol PRN Reason: per Hypoglycemia Standing Ord. Insulin Human Lispro (Insulin Lispro 100 Unit/Ml 3 Ml Vial) 0 unit SUBCUT QIDACHS [facility]; Protocol Last Admin: 04/18/23 13:04 Dose: 4 unit Documented By: RAMÓN Lidocaine (Lidocaine 4 % Patch Adh..Patch) 1 patch TRANSDERMA DAILY [facility]; Protocol Last Admin: 04/18/23 09:31 Dose: 1 patch Documented By: RAMÓN Melatonin (Melatonin 3 Mg Tablet) 6 mg PO BEDTIME PRN PRN Reason: Insomnia Last Admin: 04/18/23 02:10 Dose: 6 mg Documented By: PATRICIA Nifedipine (Nifedipine Er 60 Mg Tab.Er.24) 60 mg PO BID [facility]; Protocol Last Admin: 04/17/23 12:12 Dose: Not Given Documented By: YAKOV-WILEY Non-Admin Reason: Decreased Blood Pressure Pt Own (Sucroferric Oxyhydroxide [ Velphoro] 500 Mg Tablet,Chewable) 500 mg PO TID [facility] Last Admin: 04/18/23 09:29 Dose: 500 mg Documented By: RAMÓN Omeprazole (Omeprazole 20 Mg Capsule.) 20 mg PO DAILY@0630 [facility] Last Admin: 04/18/23 06:13 Dose: 20 mg Documented By: PATRICIA Polyethylene Glycol (Polyethylene Glycol 3350 17 Gm Powd.Pack) 17 gm PO DAILY PRN PRN Reason: Constipation Last Admin: 04/16/23 08:26 Dose: 17 gm Documented By: KEITH Pregabalin (Pregabalin 75 Mg Capsule) 75 mg PO DAILY [facility] Last Admin: 04/18/23 09:29 Dose: 75 mg Documented By: RAMÓN Senna/Docusate Sodium (Sennosides/Docusate Sodium Tablet) 1 tab PO DAILY PRN PRN Reason: Constipation Last Admin: 04/15/23 06:20 Dose: 1 tab Documented By: DAVID Sodium Chloride (0.9 % Sodium Chloride Flush 3 Ml Syringe) [facility] Admin: 04/18/23 09:31 Dose: 3 ml Documented By: RAMÓN Labs 04/19/23 07:14 04/19/23 07:14 Labs: Laboratory Results - last 24 hr 04/17/23 04/17/23 04/17/23 12:55 16:26 20:57 Hold Purple Top Anion Gap Estim Creat Clear Calc Estimated GFR POC Glucose 208 H 215 H Random Glucose Calcium Respiratory Panel Baumann Cancelled Adenovirus (Rapid PCR) Cancelled B.pert (TEM-PCR) Cancelled B.parapertussis DNA PCR Cancelled C. pneumoniae DNA (PCR) Cancelled Coronavirus OC43 (PCR) Cancelled Coronavirus HKU1 (PCR) Cancelled Coronavirus 229E (PCR) Cancelled Coronavirus NL63 (PCR) Cancelled Human Metapneumovir PCR Cancelled Influenza A (RT-PCR) Cancelled Influenza B (RT-PCR) Cancelled M. pneumoniae (PCR) Cancelled Parainfluenza 1 (PCR) Cancelled Parainfluenza 2 (PCR) Cancelled Parainfluenza 3 (PCR) Cancelled Parainfluenza 4 (PCR) Cancelled RSV (PCR) Cancelled Entero/Rhino (PCR) Cancelled SARS-CoV-2 RNA (RT-PCR) Cancelled 04/18/23 04/18/23 04/18/23 03:39 07:50 07:54 Hold Purple Top SEE NOTE Anion Gap 20 Estim Creat Clear Calc 9.3 Estimated GFR 8 POC Glucose 142 H 132 H Random Glucose 106 Calcium 8.6 Respiratory Panel Baumann Adenovirus (Rapid PCR) B.pert (TEM-PCR) B.parapertussis DNA PCR C. pneumoniae DNA (PCR) Coronavirus OC43 (PCR) Coronavirus HKU1 (PCR) Coronavirus 229E (PCR) Coronavirus NL63 (PCR) Human Metapneumovir PCR Influenza A (RT-PCR) Influenza B (RT-PCR) M. pneumoniae (PCR) Parainfluenza 1 (PCR) Parainfluenza 2 (PCR) Parainfluenza 3 (PCR) Parainfluenza 4 (PCR) RSV (PCR) Entero/Rhino (PCR) SARS-CoV-2 RNA (RT-PCR) 04/18/23 11:13 Hold Purple Top Anion Gap Estim Creat Clear Calc Estimated GFR POC Glucose 203 H Random Glucose Calcium Respiratory Panel Baumann Adenovirus (Rapid PCR) B.pert (TEM-PCR) B.parapertussis DNA PCR C. pneumoniae DNA (PCR) Coronavirus OC43 (PCR) Coronavirus HKU1 (PCR) Coronavirus 229E (PCR) Coronavirus NL63 (PCR) Human Metapneumovir PCR Influenza A (RT-PCR) Influenza B (RT-PCR) M. pneumoniae (PCR) Parainfluenza 1 (PCR) Parainfluenza 2 (PCR) Parainfluenza 3 (PCR) Parainfluenza 4 (PCR) RSV (PCR) Entero/Rhino (PCR) SARS-CoV-2 RNA (RT-PCR) Assessment and Plan (1) ESRD on dialysis: Status: Acute (2) Acute on chronic systolic and diastolic heart failure, NYHA class 3: Status: Acute Plan 67 years old man admitted with: Hypoxic respiratory failure secondary to right-sided pleural effusion vs fluid overload -had thoracentesis on 04/11, culture negative, negative maligancy, continues to need O 2 and will likely need it upon discharge End-stage renal disease on HD per nephro. Hyponatremia--d/t fluid overaload from ESRD, dialysis tomorrow Hyperkalemia--Lokelma and repeat tomorrow Elevated troponin, not d/t ACS, likely d/t ESRD Angel lymph nodes on CT--outpatient w/u Metabolic Encephalopathy, likely due to uremia, ammonia level was normal, hold pregabalin. ABG, prior ct no acute finding, patient reassessed with RN and was more awake andmore responsive, blood sugar was 138 HTN continue Nefedipine, Coreg DM2, coverage with sliding scale insulin Gout. Continue allopurinol. Anemia. Chronic. Continue to monitor hemoglobin. Hyperlipidemia. Continue statin. Obstructive sleep apnea. Hx of noncompliance with CPAP treatment. Neuropathy. Continue pregabalin. DVT prophylaxis: SCDs only (possible thoracentesis) ongoing hospitalization need for toxic metabolic encephalopathy-fluctuating mental status , Quality Stroke Does the patient have a stroke diagnosis?: No VTE Prior VTE?: No VTE Risk Level:: Medical - moderate - high VTE Device Contraindication: N/A - Device Ordered VTE Drug Contraindication: Treatment Not Indicated
[2023-04-18] MEDS: Sodium Zirconium Cyclosilicate 10 GM POWD.PACK PO (15:23)
[2023-04-18 15:47] LABS: Glucose, Whole Blood 138 mg/dL (60-115)
[2023-04-18 16:41] LABS: ABG HCO3 19 mmol/L (22-26); ABG pCO2 40 mmHg (32-45); ABG pH 7.27 (7.35-7.45); ABG pO2 110 mmHg (83-108)
[2023-04-18] MEDS: NIFEdipine ER 60 MG TAB.ER.24 PO (19:53)
[2023-04-18] MEDS: Doxazosin Mesylate 2 MG TABLET 4 MG PO (19:53)
[2023-04-18 20:07] LABS: Glucose, Whole Blood 127 mg/dL (60-115)
--- NOTE | 2023-04-18 20:08 | PM.EVENT ---
Event Note Date of Service: 04/18/23 Event Note: Nurse reported temp 100.8. Will obtain cxr, ua, blood cxr, cbc and lactic acid. Empiric abx Time Spent With Patient Time: Total time managing care of this patient today ____ minutes.
[2023-04-18 20:56] LABS: Lactic Acid 0.7 mmol/L (0.5-2.0)
[2023-04-18] MEDS: cefTRIAXone sodium 1 GM in 0.9 % Sodium Chloride 50 ML IV (21:31)
[2023-04-19] VITALS: BP 156/68; PULSE 66; RESP 20; TEMP 36.7; O2SAT 97
--- NOTE | 2023-04-19 00:01 | PC.RT ---
Does not want CPAP
[2023-04-19 03:27] VITALS: BP 143/68; PULSE 63; RESP 20; TEMP 36.4; O2SAT 91
--- NOTE | 2023-04-19 05:24 | PC.NURSE ---
At approx 1930 Tmax 100.8. MD Junior notified. Blood cultures, CXR, and labs ordered. 1x dose Ceftriaxone ordered and given. See MD note. See shift assessment for further details.
[2023-04-19 05:25] VITALS: BMI 30.4
[2023-04-19] MEDS: Omeprazole 20 MG CAPSULE.DR PO (05:46)
[2023-04-19 07:24] LABS: MANUAL DIFF FLAG NO
[2023-04-19 07:33] LABS: Basophils Percent Auto 0.4 % (0-2); Eosinophils Absolute Auto 0.1 X10*3/uL (0.0-0.4); Eosinophils Percent Auto 1.1 % (0-4); Hematocrit 38.5 % (42.0-52.0); Hemoglobin 12.2 g/dl (14.0-18.0); Imm Gran Abs Auto 0.03 X10*3/uL (0.00-0.03); Imm Gran Pct Auto 0.4 % (0.0-0.4); Lymphocytes Absolute Auto 0.9 X10*3/uL (1.2-4.9); Lymphocytes Percent Auto 11.5 % (20-40); Mean Corpuscular HGB Conc 31.7 g/dl (31.0-36.0); Mean Corpuscular Hemoglobin 23.4 pg (27.0-33.0); Mean Corpuscular Volume 73.9 fL (80.0-98.0); Monocytes Absolute Auto 0.9 X10*3/uL (0.1-1.2); Monocytes Percent Auto 12.1 % (2-11); Neutrophils Absolute Auto 5.6 x10*3/uL (2.0-8.3); Neutrophils Percent Auto 74.5 % (45-73); Platelet Count 158 X10*3/uL (160-400); Red Blood Count 5.21 X10*6/uL (4.60-5.80); Red Cell Distribution Width 14.8 % (11.0-16.0); White Blood Count 7.5 X10*3/uL (4.8-10.8)
[2023-04-19 07:46] LABS: Glucose, Whole Blood 104 mg/dL (60-115)
[2023-04-19 07:46] LABS: Anion Gap 17 (12-20); Blood Urea Nitrogen 43 mg/dL (9-16); Calcium 8.5 mg/dL (8.4-10.2); Carbon Dioxide 22 mmol/L (22-29); Chloride 95 mmol/L (96-108); Estimated Glomerular Filt Rate 9; Glucose Random 105 mg/dL (60-115); Potassium 3.9 mmol/L (3.3-5.1); Sodium 130 mmol/L (135-145)
[2023-04-19 11:03] VITALS: BP 116/64; PULSE 73; RESP 22; TEMP 36.4; O2SAT 94
[2023-04-19 11:17] LABS: Glucose, Whole Blood 97 mg/dL (60-115)
[2023-04-19] MEDS: Aspirin Enteric Coated 81 MG TABLET.DR PO (11:25)
[2023-04-19] MEDS: NIFEdipine ER 60 MG TAB.ER.24 PO ×2 (11:25→21:23)
[2023-04-19] MEDS: Furosemide 40 MG TABLET 80 MG PO (11:26)
[2023-04-19] MEDS: Atorvastatin Calcium 40 MG TABLET PO (11:26)
--- NOTE | 2023-04-19 11:35 | PM.PNNEP ---
Subjective Subjective Date of Service: 04/19/23 Interval history: seen and examined had HD earlier no complaints Physical Exam Vital Signs: Vital Signs: Last Vital Signs Temp 97.6 F 04/19/23 11:03 Pulse 73 04/19/23 11:03 Resp 22 H 04/19/23 11:03 BP 116/64 04/19/23 11:03 Pulse Ox 94 04/19/23 11:03 O2 Del Method Nasal Cannula 04/19/23 11:03 O2 Flow Rate 1 04/19/23 11:03 Oxygen Flow Rate 1 04/16/23 07:00 BMI result Body Mass Index 30.4 Const: General: alert and awake HEENT: Head: Yes normocephalic and Yes atraumatic Neck: Neck: Yes supple Resp: Auscultation: diminished lung sounds Cardio: Heart sounds: S1 normal heart sound present and S2 normal heart sound present GI: Palpation (GI): Soft to palpation and nontender Objective Data Labs 04/19/23 07:14 04/19/23 07:14 Labs: Laboratory Results - last 24 hr 04/18/23 04/18/23 04/18/23 15:43 16:34 19:57 WBC RBC Hgb Hct MCV MCH MCHC RDW Plt Count MPV Immature Gran % (Auto) Neut % (Auto) Lymph % (Auto) [place]cal[place] % (Auto) Eos % (Auto) Baso % (Auto) Lymph # (Auto) [place] # (Auto) Eos # (Auto) Baso # (Auto) Abs Immat Gran (auto) Absolute Neuts (auto) Absolute Nucleated RBC Nucleated RBC % (auto) O2 Saturation 99.0 ABG pH at Pt Temp 7.27 L ABG pCO2 at Pt Temp 40 ABG pO2 at Pt Temp 110 H ABG HCO3 19 L ABG Base Excess (Actual) -7.0 Sodium Potassium Chloride Carbon Dioxide Anion Gap BUN Creatinine Estim Creat Clear Calc Estimated GFR POC Glucose 138 H 127 H Random Glucose Lactic Acid Calcium 04/18/23 04/19/23 04/19/23 20:31 07:14 07:40 WBC 7.5 RBC 5.21 Hgb 12.2 L Hct 38.5 L MCV 73.9 L MCH 23.4 L MCHC 31.7 RDW 14.8 Plt Count 158 L D MPV Not Reportable Immature Gran % (Auto) 0.4 Neut % (Auto) 74.5 H Lymph % (Auto) 11.5 L [place] % (Auto) 12.1 H Eos % (Auto) 1.1 Baso % (Auto) 0.4 Lymph # (Auto) 0.9 L [place] # (Auto) 0.9 Eos # (Auto) 0.1 Baso # (Auto) 0.0 Abs Immat Gran (auto) 0.03 Absolute Neuts (auto) 5.6 Absolute Nucleated RBC 0.000 Nucleated RBC % (auto) 0.0 O2 Saturation ABG pH at Pt Temp ABG pCO2 at Pt Temp ABG pO2 at Pt Temp ABG HCO3 ABG Base Excess (Actual) Sodium 130 L Potassium 3.9 D Chloride 95 L Carbon Dioxide 22 Anion Gap 17 BUN 43 H Creatinine 6.28 H* Estim Creat Clear Calc 11.0 Estimated GFR 9 POC Glucose 104 Random Glucose 105 Lactic Acid 0.7 Calcium 8.5 04/19/23 11:02 WBC RBC Hgb Hct MCV MCH MCHC RDW Plt Count MPV Immature Gran % (Auto) Neut % (Auto) Lymph % (Auto) [place] % (Auto) Eos % (Auto) Baso % (Auto) Lymph # (Auto) [place] # (Auto) Eos # (Auto) Baso # (Auto) Abs Immat Gran (auto) Absolute Neuts (auto) Absolute Nucleated RBC Nucleated RBC % (auto) O2 Saturation ABG pH at Pt Temp ABG pCO2 at Pt Temp ABG pO2 at Pt Temp ABG HCO3 ABG Base Excess (Actual) Sodium Potassium Chloride Carbon Dioxide Anion Gap BUN Creatinine Estim Creat Clear Calc Estimated GFR POC Glucose 97 Random Glucose Lactic Acid Calcium Microbiology Microbiology Results: Microbiology 04/11/23 14:07 Pleural Fluid Gram Stain - Final 04/11/23 14:07 Pleural Fluid Routine Culture - Final No growth after 2 days 04/11/23 14:07 Pleural Fluid Anaerobic Culture - Final NO GROWTH AFTER 5 DAYS Procedures Date of Service Date of Service: 04/19/23 Assessment & Plan Assessment and plan (1) ESRD (end stage renal disease): Status: Acute (2) Anemia: Status: Acute Plan usually has HD -- at [facility] HDU via AVF nephrogenic anemia HFrEF LVEF 35% hypervolemic hyponatremia REC HD today volume optimization renal diet no need for NAYE phosphate binders Time Spent With Patient Time: Total time managing care of this patient today ____ minutes. Progress Note: Quality Stroke Does the patient have a stroke diagnosis?: No
--- NOTE | 2023-04-19 12:10 | MHC.CM.PN ---
Pt not yet ready for DC, STR following, CM to assist with DC plan.
[2023-04-19 15:35] VITALS: BP 122/58; PULSE 69; RESP 20; TEMP 36.7; O2SAT 98
[2023-04-19] MEDS: 0.9 % Sodium Chloride Flush 3 ML SYRINGE IVFLUSH (16:12)
[2023-04-19 16:22] LABS: Glucose, Whole Blood 319 mg/dL (60-115)
[2023-04-19] MEDS: allopurinoL 100 MG TABLET PO (17:10)
[2023-04-19] MEDS: Insulin Lispro 100 UNIT/ML 3 ML VIAL SUBCUT (17:10)
--- NOTE | 2023-04-19 18:01 | P.PNIM_ITS ---
Subjective Subjective Date of Service: 04/20/23 Interval History: f/u hypoxic resp failure, esrd Physical Exam 2 Vital Signs: Vital Signs: Last Vital Signs Temp 98.0 F 04/19/23 15:35 Pulse 69 04/19/23 15:35 Resp 20 04/19/23 15:35 BP 122/58 L 04/19/23 15:35 Pulse Ox 98 04/19/23 15:35 O2 Del Method Nasal Cannula 04/19/23 15:35 O2 Flow Rate 2 04/19/23 15:35 Oxygen Flow Rate 1 04/16/23 07:00 BMI result Body Mass Index 30.4 Objective Data Active Medications Acetaminophen (Acetaminophen 325 Mg Tablet) 650 mg PO Q6H PRN PRN Reason: Pain, Mild (Pain Scale 1-3) Last Admin: 04/18/23 19:52 Dose: 650 mg Documented By: BEATRICE Albuterol Sulfate (Albuterol Sulfate 90 Mcg 8 Gm Inhaler) 2 puff INHALE Q4H PRN PRN Reason: Shortness Of Breath Allopurinol (Allopurinol 100 Mg Tablet) 100 mg PO MOWEFR@1600 [facility] Last Admin: 04/19/23 17:10 Dose: 100 mg Documented By: JERALD Aspirin (Aspirin Enteric Coated 81 Mg Tablet.) 81 mg PO DAILY [facility] Last Admin: 04/19/23 11:25 Dose: 81 mg Documented By: FRANCISCO Atorvastatin Calcium (Atorvastatin Calcium 40 Mg Tablet) 40 mg PO DAILY [facility] Last Admin: 04/19/23 11:26 Dose: 40 mg Documented By: FRANCISCO Carvedilol (Carvedilol 12.5 Mg Tablet) 12.5 mg PO BID [facility]; Protocol Last Admin: 04/17/23 12:11 Dose: Not Given Documented By: TRI Non-Admin Reason: Decreased Blood Pressure Dextrose (Dextrose 50 % 25 Gm/50 Ml Syringe) 25 gm IVPUSH Q15M PRN; Protocol PRN Reason: per Hypoglycemia Standing Ord. Doxazosin Mesylate (Doxazosin Mesylate 2 Mg Tablet) 4 mg PO BEDTIME [facility]; Protocol Last Admin: 04/18/23 19:53 Dose: 4 mg Documented By: BEATRICE Fluticasone/Umeclidinium/Vilanterol (Fluticasone/Umeclidinium/Vilanterol 200/62.5/25 Blst.W.Dev) 1 puff INHALE RDAILY [facility] Last Admin: 04/19/23 08:04 Dose: Not Given Documented By: EVENS Non-Admin Reason: Patient Refused Furosemide (Furosemide 40 Mg Tablet) 80 mg PO DAILY [facility]; Protocol Last Admin: 04/19/23 11:26 Dose: 80 mg Documented By: FRANCISCO Glucose (Glucose Gel 15 Gm Gel..Gram.) 15 gm PO Q15M PRN; Protocol PRN Reason: per Hypoglycemia Standing Ord. Insulin Human Lispro (Insulin Lispro 100 Unit/Ml 3 Ml Vial) 0 unit SUBCUT QIDACHS [facility]; Protocol Last Admin: 04/19/23 17:10 Dose: 8 unit Documented By: JERALD Lidocaine (Lidocaine 4 % Patch Adh..Patch) 1 patch TRANSDERMA DAILY [facility]; Protocol Last Admin: 04/19/23 11:27 Dose: Not Given Documented By: FRANCISCO Non-Admin Reason: Patient Refused Melatonin (Melatonin 3 Mg Tablet) 6 mg PO BEDTIME PRN PRN Reason: Insomnia Last Admin: 04/18/23 19:53 Dose: 6 mg Documented By: BEATRICE Nifedipine (Nifedipine Er 60 Mg Tab.Er.24) 60 mg PO BID [facility]; Protocol Last Admin: 04/19/23 11:25 Dose: 60 mg Documented By: FRANCISCO Pt Own (Sucroferric Oxyhydroxide [ Velphoro] 500 Mg Tablet,Chewable) 500 mg PO TID [facility] Last Admin: 04/19/23 16:12 Dose: 500 mg Documented By: JERALD Omeprazole (Omeprazole 20 Mg Capsule.Dr) 20 mg PO DAILY@0630 [facility] Last Admin: 04/19/23 05:46 Dose: 20 mg Documented By: BEATRICE Polyethylene Glycol (Polyethylene Glycol 3350 17 Gm Powd.Pack) 17 gm PO DAILY PRN PRN Reason: Constipation Last Admin: 04/16/23 08:26 Dose: 17 gm Documented By: KEITH Senna/Docusate Sodium (Sennosides/Docusate Sodium Tablet) 1 tab PO DAILY PRN PRN Reason: Constipation Last Admin: 04/15/23 06:20 Dose: 1 tab Documented By: HO.KUDRYAD Sodium Chloride (0.9 % Sodium Chloride Flush 3 Ml Syringe) 3 ml IVFLUSH QSHIFT [facility] Last Admin: 04/19/23 16:12 Dose: 3 ml Documented By: JERALD Labs 04/19/23 07:14 04/19/23 07:14 Labs: Laboratory Results - last 24 hr 04/18/23 04/18/23 04/19/23 19:57 20:31 07:14 MCV 73.9 L MCH 23.4 L MCHC 31.7 RDW 14.8 Plt Count 158 L D MPV Not Reportable Immature Gran % (Auto) 0.4 Neut % (Auto) 74.5 H Lymph % (Auto) 11.5 L [place] % (Auto) 12.1 H Eos % (Auto) 1.1 Baso % (Auto) 0.4 Lymph # (Auto) 0.9 L [place] # (Auto) 0.9 Eos # (Auto) 0.1 Baso # (Auto) 0.0 Abs Immat Gran (auto) 0.03 Absolute Neuts (auto) 5.6 Absolute Nucleated RBC 0.000 Nucleated RBC % (auto) 0.0 Anion Gap 17 Estim Creat Clear Calc 11.0 Estimated GFR 9 POC Glucose 127 H Random Glucose 105 Lactic Acid 0.7 Calcium 8.5 04/19/23 04/19/23 04/19/23 07:40 11:02 16:12 MCV MCH MCHC RDW Plt Count MPV Immature Gran % (Auto) Neut % (Auto) Lymph % (Auto) [place] % (Auto) Eos % (Auto) Baso % (Auto) Lymph # (Auto) [place] # (Auto) Eos # (Auto) Baso # (Auto) Abs Immat Gran (auto) Absolute Neuts (auto) Absolute Nucleated RBC Nucleated RBC % (auto) Anion Gap Estim Creat Clear Calc Estimated GFR POC Glucose 104 97 319 H Random Glucose Lactic Acid Calcium Assessment and Plan (1) ESRD on dialysis: Status: Acute (2) Acute on chronic systolic and diastolic heart failure, NYHA class 3: Status: Acute Plan 67 years old man admitted with: Hypoxic respiratory failure secondary to right-sided pleural effusion vs fluid overload -had thoracentesis on 04/11, culture negative, negative maligancy, Overall O2 need going down, assess for home O2 if still on O2 End-stage renal disease on HD per nephro. Hyponatremia--d/t fluid overaload from ESRD, dialysis tomorrow Hyperkalemia--Lokelma and repeat tomorrow Elevated troponin, not d/t ACS, likely d/t ESRD Angel lymph nodes on CT--outpatient w/u Metabolic Encephalopathy, likely due to uremia, ammonia level was normal, hold pregabalin. ABG, prior ct no acute finding, patient reassessed with RN and was more awake andmore responsive, blood sugar was 138 HTN continue Nefedipine, Coreg DM2, coverage with sliding scale insulin Gout. Continue allopurinol. Anemia. Chronic. Continue to monitor hemoglobin. Hyperlipidemia. Continue statin. Obstructive sleep apnea. Hx of noncompliance with CPAP treatment. Neuropathy. Continue pregabalin. DVT prophylaxis: SCDs only (possible thoracentesis) ongoing hospitalization need for toxic metabolic encephalopathy-fluctuating mental status according to his son at bedside he's doing really good, back to baseline and looks forwared to taking him home , Quality Stroke Does the patient have a stroke diagnosis?: No VTE Prior VTE?: No VTE Risk Level:: Medical - moderate - high VTE Device Contraindication: N/A - Device Ordered VTE Drug Contraindication: Treatment Not Indicated
[2023-04-19 20:00] VITALS: BP 124/58; PULSE 68; RESP 18; TEMP 37; O2SAT 94
[2023-04-19] MEDS: Doxazosin Mesylate 2 MG TABLET 4 MG PO (21:22)
[2023-04-19 21:33] LABS: Glucose, Whole Blood 108 mg/dL (60-115)
[2023-04-19 22:43] LABS: Glucose, Whole Blood 109 mg/dL (60-115)
[2023-04-19 23:17] VITALS: BP 143/65; PULSE 62; RESP 18; TEMP 36.9; O2SAT 95
[2023-04-20] MEDS: 0.9 % Sodium Chloride Flush 3 ML SYRINGE IVFLUSH ×2 (02:35→08:07)
[2023-04-20 03:29] VITALS: BP 136/64; PULSE 69; RESP 18; TEMP 36.7; O2SAT 92
[2023-04-20] MEDS: Benzonatate 100 MG CAPSULE 200 MG PO (04:54)
[2023-04-20] MEDS: Omeprazole 20 MG CAPSULE.DR PO (05:50)
[2023-04-20 06:00] VITALS: BMI 28.4; BMI 28.7
[2023-04-20 07:07] VITALS: BP 135/61; PULSE 76; RESP 20; TEMP 37.2; O2SAT 95
[2023-04-20 07:22] LABS: Glucose, Whole Blood 163 mg/dL (60-115)
[2023-04-20] MEDS: Fluticasone/Umeclidinium/Vilanterol 200/62.5/25 BLST.W.DEV 1 PUFF INHALE (07:53)
[2023-04-20 07:57] VITALS: PULSE 70; RESP 16; O2SAT 96
[2023-04-20] MEDS: Aspirin Enteric Coated 81 MG TABLET.DR PO (08:07)
[2023-04-20] MEDS: Furosemide 40 MG TABLET 80 MG PO (08:07)
[2023-04-20] MEDS: Atorvastatin Calcium 40 MG TABLET PO (08:07)
[2023-04-20] MEDS: NIFEdipine ER 60 MG TAB.ER.24 PO (08:07)
[2023-04-20] MEDS: Insulin Lispro 100 UNIT/ML 3 ML VIAL SUBCUT ×2 (08:07→11:53)
[2023-04-20 10:57] VITALS: BP 139/64; PULSE 69; RESP 20; TEMP 37.2; O2SAT 95
[2023-04-20 11:10] LABS: Glucose, Whole Blood 190 mg/dL (60-115)
--- NOTE | 2023-04-20 11:14 | PM.PNNEP ---
Subjective Subjective Date of Service: 04/20/23 Interval history: seen and examined family at bedside updated no complaints Physical Exam Vital Signs: Vital Signs: Last Vital Signs Temp 98.9 F 04/20/23 10:57 Pulse 69 04/20/23 10:57 Resp 20 04/20/23 10:57 BP 139/64 04/20/23 10:57 Pulse Ox 95 04/20/23 10:57 O2 Del Method Nasal Cannula 04/20/23 10:57 O2 Flow Rate 2 04/20/23 10:57 Oxygen Flow Rate 1 04/16/23 07:00 BMI result Body Mass Index 28.4 Const: General: alert and awake HEENT: Head: Yes normocephalic and Yes atraumatic Neck: Neck: Yes supple Resp: Auscultation: diminished lung sounds Cardio: Heart sounds: S1 normal heart sound present and S2 normal heart sound present GI: Palpation (GI): Soft to palpation and nontender Objective Data Labs 04/19/23 07:14 04/19/23 07:14 Labs: Laboratory Results - last 24 hr 04/19/23 04/19/23 04/19/23 11:02 16:12 21:28 POC Glucose 97 319 H 108 04/19/23 04/20/23 04/20/23 22:37 07:08 10:59 POC Glucose 109 163 H 190 H Microbiology Microbiology Results: Microbiology 04/18/23 20:32 Blood - Venous Blood Culture - Preliminary No growth after 24 hours. 04/18/23 20:32 Blood - Venous Blood Culture - Preliminary No growth after 24 hours. 04/11/23 14:07 Pleural Fluid Gram Stain - Final 04/11/23 14:07 Pleural Fluid Routine Culture - Final No growth after 2 days 04/11/23 14:07 Pleural Fluid Anaerobic Culture - Final NO GROWTH AFTER 5 DAYS Procedures Date of Service Date of Service: 04/20/23 Assessment & Plan Assessment and plan (1) ESRD (end stage renal disease): Status: Acute (2) Anemia: Status: Acute Plan usually has HD -- at [facility] HDU via AVF nephrogenic anemia HFrEF LVEF 35% hypervolemic hyponatremia REC HD tomorrow renal diet no need for NAYE phosphate binders restrict free water intake Time Spent With Patient Time: Total time managing care of this patient today ____ minutes. Progress Note: Quality Stroke Does the patient have a stroke diagnosis?: No
--- NOTE | 2023-04-20 13:08 | PM.DS ---
DS: Providers Provider Date of Service: 04/20/23 Date of admission: 04/10/23 23:32 Primary care physician: Jade Lewis MD Consults: 04/11/23 06:53 Consult to Nephrology Routine Consulting Provider: Kole Escobedo Reason for consultation: Inpatient hemodialysis Has provider been notified: No 04/12/23 08:27 Consult to Cardiology Routine Consulting Provider: [facility] Reason for consultation: possible chf /pleural effusion Has provider been notified: No 04/16/23 09:09 Consult to Neurology Routine Consulting Provider: [facility] Reason for consultation: Myoclonus left sided Has provider been notified: No 04/16/23 11:01 Consult to Critical Care Routine Consulting Provider: Edward Jean Reason for consultation: goal of care Has provider been notified: Yes DS: Diagnosis Discharge Diagnosis (1) ESRD on dialysis: Status: Acute (2) Acute on chronic systolic and diastolic heart failure, NYHA class 3: Status: Acute DS: Summary Hospital Course Hospital Course: Chief Complaint: Shortness of breath Beau Marie is a 67 years old man with past medical history significant for end-stage renal disease on hemodialysis (MWF), type 2 diabetes on insulin, essential hypertension and hyperlipidemia presents to the emergency department complaining of worsening shortness on breath over the last couple of days status worse with minimal exertion. He also complained of a right-sided thoracic (w/ inspiration) and right-sided neck pain. He did not report any cough, fever or chills. He did not report any headache, dizziness or palpitations. He did not report any acute gastrointestinal genitourinary symptoms. There is no swelling to the lower extremities. His last hemodialysis session was completed and without complications. Patient did not recall the name of his home medications, however, was able to tell me that he has not on Eliquis anymore and the take only a baby aspirin. He might be taking furosemide (last time it was dispensed was March 27 of this year). He denied alcohol abuse, tobacco smoking or illicit drug use. Patient denies history of congestive heart failure. In the ED, he was found to have stable vital signs, however his oxygen saturation was 86% on room air and currently requiring 2 liters/minute supplemental oxygen via nasal cannula. His blood workup is remarkable for elevated BNP and troponin (which is trending down). There is no metabolic acidosis or hyperkalemia. There is hyperglycemia, 270. Viral testing for COVID-19 and influenza are negative. CXR showed moderate right pleural effusion with underlying atelectasis. Chest CT scan without contrast showed moderate right pleural effusion with right lower lobe compressive atelectasis and mild cardiomegaly. Neck CT scan soft tissue show bilateral cervical chain lymph node and no additional focal lesion within the soft tissue of the neck. ED tx: Acetaminophen 650 mg p.o., morphine 4 mg IV. Hospital course: The patient presented with shortness of breath, fluid overload and work uup revealed a right sided pleural effusion. He was also acidocic and confused likely from uremia. He required homodilayisos and ultimately had throacentesis on 04/11 with negative culture, negative malignancy, likely hydrothorax from fluid overload from ESRD. Overall oxygen requirement has gone down and is off O2, saturating 92% on room air End-stage renal disease on HD per nephro. Hyponatremia--chronic due to chronic fluid overload state from ESRD Hyperkalemia--resolved with dialysis, [facility] Elevated troponin, not d/t ACS, likely d/t ESRD Angel lymph nodes on CT--outpatient w/u Metabolic Encephalopathy, likely due to uremia, ammonia level was normal, stop pregabalin. HTN --His blood pressures have been good without lisinopril, nifedipine, or hydralazine. To continue Lasix and Coreg DM2, resume home meds Gout. Continue allopurinol. Anemia. Chronic. Continue to monitor hemoglobin. Hyperlipidemia. Continue statin. Obstructive sleep apnea. Hx of noncompliance with CPAP treatment. PT recommended short term rehab, he and son prefers going home with VNA Time Attestation Discharge coordination time: Greater than 30 minutes Quality: Safe Use of Opioids Does Pt have an Active Cancer Diagnosis on the Problem List?: No Quality: Stroke Does the patient have a stroke diagnosis?: No Physical Exam Vital Signs: Vital Signs: Last Vital Signs Temp 98.9 F 04/20/23 10:57 Pulse 69 04/20/23 10:57 Resp 20 04/20/23 10:57 BP 139/64 04/20/23 10:57 Pulse Ox 95 04/20/23 10:57 O2 Del Method Nasal Cannula 04/20/23 10:57 O2 Flow Rate 2 04/20/23 10:57 Oxygen Flow Rate 1 04/16/23 07:00 BMI result Body Mass Index 28.4 DS: Data Data Completed and Pending Completed studies during hospitalization [Text1]: Pending at discharge 04/11/23 14:07 Cytology [PTH] Routine Procedures Performance of Urinary Filtration, Intermittent, Less than 6 Hours Per Day (04/19/22) Labs on day of discharge: Laboratory Results - last 24 hr 04/19/23 04/19/23 04/19/23 16:12 21:28 22:37 POC Glucose 319 H 108 109 04/20/23 04/20/23 07:08 10:59 POC Glucose 163 H 190 H Preliminary micro results at discharge 04/18/23 20:32 Blood Culture - Preliminary Blood - Venous No growth after 24 hours. 04/18/23 20:32 Blood Culture - Preliminary Blood - Venous No growth after 24 hours. Discharge Plan Discharge Anticipated Discharge Date/Time: 04/20/23 12:58 Patient Disposition: Home Health Service Discharge Diagnosis: Acute hypoxic Referrals: Ed[facility] [Outside] - 1 Week Jade Lewis MD [Primary Care Provider] - 1 Week Discharge Medications: Continued atorvastatin 40 mg tablet 40 mg PO DAILY ipratropium-albuterol 0.5 mg-3 mg(2.5 mg base)/3 mL solution for nebulization 3 ml INHALATION Q4H PRN (Reason: Wheezing) sennosides-docusate sodium [Senna-Time S] 8.6-50 mg tablet 1 tab PO DAILY PRN (Reason: Constipation) allopurinol 100 mg tablet 100 mg PO MOWEFR@1600 Rx Instructions: GIVE AFTER DIALYSIS aspirin 81 mg tablet,delayed release (DR/EC) 81 mg PO DAILY carvedilol 3.125 mg tablet 3.125 mg PO BID Rx Instructions: administer with food furosemide 80 mg tablet 80 mg PO DAILY omeprazole 20 mg capsule,delayed release(DR/EC) 20 mg PO DAILY doxazosin 4 mg tablet 4 mg PO BEDTIME polyethylene glycol 3350 17 gram/dose powder 17 g PO DAILY PRN (Reason: Constipation) albuterol sulfate 90 mcg/actuation HFA aerosol inhaler 2 puff INHALATION Q4H PRN (Reason: Shortness Of Breath) sevelamer carbonate 800 mg tablet 1,600 mg PO TIDWM Eliquis 5 mg tablet 5 mg PO BID insulin lispro 100 unit/mL insulin pen 6 unit subcut TID insulin glargine [Lantus Solostar U-100 Insulin] 100 unit/mL (3 mL) insulin pen 34 unit subcut BEDTIME Velphoro 500 mg tablet,chewable 500 mg PO TID Trelegy Ellipta 200-62.5-25 mcg blister with device 1 ea INHALATION DAILY acetaminophen [Pain Relief ES (acetaminophen)] 500 mg tablet 500 mg PO Q4H PRN (Reason: Pain) Discontinued hydralazine 25 mg tablet 25 mg PO TID pregabalin 75 mg capsule 75 mg PO DAILY nifedipine 60 mg tablet extended release 24hr 60 mg PO BID lisinopril 10 mg tablet 10 mg PO DAILY labetalol 100 mg tablet 100 mg PO BID Discharge Orders: Discharge Order (Routine); Ordered 04/20/23 Ordered By: Hamlet Rai Diet: Diabetic diet Activity on Discharge: As tolerated Stand Alone Forms: Patient Portal Discharge page Care Plan Goals: recovery from acute hypoxic respiratory failure Health Concerns: respiratory failure pleural effusion hyponatremia encephalopathy that has resolved ESRD on dialysis Plan of Treatment: stop taking lisinopril, hydralazine, nifedipine, pregabalin follow up with dialysis as usual follow up with your Doctor in a week Assessment: see above
--- NOTE | 2023-04-20 13:28 | W.MHC.F2F ---
Service Date Service Date: 04/20/23 Encounter Date of encounter: 04/20/23 Reasons for Services Signs and symptoms assessed: shortness of breath, weakness, unsteady gait Reason for nursing home: medication management, medication treatment and teach disease management Reason for physical therapy: home safety and mobility, therapeutic exercises and energy conservation Homebound: Leaving the home is medically contraindicated at this time without the asist of a device and/or another person due th the listed conditions above and below. Reason homebound: unsteady gait / fall risk and fall risk related to blood pressure changes Homebound supporting statement: homebound due to weakness, unsteady gait, shortness of breath with minimal effort, unable to drive and therefore needs the assistance of another person Certification: Based on the above findings, I certify that this patient is confined to the home and needs intermittent nursing home care, physical therapy and/or speech therapy, or continues to need occupational therapy. The patient is under my care, and I have initiated the establishment of the plan of care. The patient will be followed by a physician who will periodically review the plan of care. Time Spent With Patient Time: Total time managing care of this patient today ____ minutes.
[2023-04-20 13:39] VITALS: O2SAT 92
--- NOTE | 2023-04-20 13:49 | MHC.CM.PN ---
Second IMM 04/20/23, Pt is going home via family transport today. He will have home care services from [facility].
== END 2023-04-20 14:33 | disposition home health service (06) | DRG 640 ==
LOC: HO.ED 20:25 → HO.EDOVER 23:38 → HO.IMC 04-11 17:55
PROVIDERS: Internal Medicine; Physician Assistant; Physician Assistant Medical; Student in an Organized Health Care Education/Training Program; Admitting Provider Internal Medicine; Emergency Provider Internal Medicine; PCP Internal Medicine; Visit Provider Internal Medicine
DX: E87.70 Fluid overload, unspecified (principal); G92.8 Other toxic encephalopathy; I50.43 Acute on chronic combined systolic (congestive) and diastolic (congestive) heart failure; N18.6 End stage renal disease; J96.01 Acute respiratory failure with hypoxia; I13.2 Hypertensive heart and chronic kidney disease with heart failure and with stage 5 chronic kidney disease, or end stage renal disease; J91.8 Pleural effusion in other conditions classified elsewhere; J98.11 Atelectasis; E87.20 Acidosis, unspecified; E87.0 Hyperosmolality and hypernatremia; E78.5 Hyperlipidemia, unspecified; G47.33 Obstructive sleep apnea (adult) (pediatric); D63.1 Anemia in chronic kidney disease; E11.40 Type 2 diabetes mellitus with diabetic neuropathy, unspecified; E87.5 Hyperkalemia; G25.81 Restless legs syndrome; M10.9 Gout, unspecified; I27.20 Pulmonary hypertension, unspecified; E11.22 Type 2 diabetes mellitus with diabetic chronic kidney disease; Z20.822 Contact with and (suspected) exposure to COVID-19; Z91.158 Patient's noncompliance with renal dialysis for other reason; Z91.199 Patient's noncompliance with other medical treatment and regimen due to unspecified reason; Z87.891 Personal history of nicotine dependence; Z86.718 Personal history of other venous thrombosis and embolism; Z79.4 Long term (current) use of insulin; Z79.82 Long term (current) use of aspirin; Z79.899 Other long term (current) drug therapy
CPT/HCPCS: 32555; 36415; 36600; 70450; 70491; 71045; 71046; 71250; 80048; 80076; 82042; 82140; 82803; 82945; 82947; 83605; 83880; 83986; 84100; 84157; 84484; 85025; 87040; 87070; 87073; 87205; 87502; 87635; 88112; 88305; 89051; 90999; 92950; 93005; 93306; 93356; 94640; 94664; 94762; 97112; 97162; 97530; 99285; J0613; J0696; J2270; J2405; Q9957; Q9967

== ENCOUNTER → 2023-04-10 12:42 | Outpatient (BNV) | payer MEDICARE, MEDICAID, SELFPAY | PROVIDERS: PCP Internal Medicine; Visit Provider Internal Medicine | DX: R94.31 Abnormal electrocardiogram [ECG] [EKG] (principal) | CPT/HCPCS: 93010 ==

== ENCOUNTER 2023-04-10 23:32 | Outpatient (BNV) | payer MEDICARE, MEDICAID, SELFPAY | END 2023-04-11 07:00 | PROVIDERS: Admitting Provider Internal Medicine; Emergency Provider Internal Medicine; PCP Internal Medicine; Visit Provider Internal Medicine | DX: I36.1 Nonrheumatic tricuspid (valve) insufficiency (principal); J90 Pleural effusion, not elsewhere classified | CPT/HCPCS: 93306 ==

== ENCOUNTER 2023-04-10 23:32 | Outpatient (BNV) | payer MEDICARE, MEDICAID, SELFPAY | END 2023-04-11 13:30 | PROVIDERS: Admitting Provider Internal Medicine; Emergency Provider Internal Medicine; PCP Internal Medicine; Visit Provider Radiology Vascular & Interventional Radiology | DX: J90 Pleural effusion, not elsewhere classified (principal) | CPT/HCPCS: 32555 ==

== ENCOUNTER 2023-04-10 23:32 | Outpatient (BNV) | payer MEDICARE, MEDICAID, SELFPAY | END 2023-04-16 10:52 | PROVIDERS: Admitting Provider Internal Medicine; Emergency Provider Internal Medicine; PCP Internal Medicine; Visit Provider Internal Medicine Cardiovascular Disease | DX: I50.43 Acute on chronic combined systolic (congestive) and diastolic (congestive) heart failure (principal) | CPT/HCPCS: 93010 ==

== ENCOUNTER → 2023-04-10 23:32 | Outpatient (BNV) | payer MEDICARE, MEDICAID, SELFPAY | PROVIDERS: Admitting Provider Internal Medicine; Emergency Provider Internal Medicine; PCP Internal Medicine; Visit Provider Internal Medicine Pulmonary Disease | DX: E87.20 Acidosis, unspecified (principal); N18.6 End stage renal disease; Z99.2 Dependence on renal dialysis; I50.43 Acute on chronic combined systolic (congestive) and diastolic (congestive) heart failure; J90 Pleural effusion, not elsewhere classified; G47.33 Obstructive sleep apnea (adult) (pediatric) | CPT/HCPCS: 99232 ==

== ENCOUNTER → 2023-04-10 23:32 | Outpatient (BNV) | payer MEDICARE, MEDICAID, SELFPAY | PROVIDERS: Admitting Provider Internal Medicine; Emergency Provider Internal Medicine; PCP Internal Medicine; Visit Provider Internal Medicine | DX: N18.6 End stage renal disease (principal); Z99.2 Dependence on renal dialysis; I50.43 Acute on chronic combined systolic (congestive) and diastolic (congestive) heart failure | CPT/HCPCS: 99223; 99231; 99232; 99233; 99238; 99499; G0180 ==

== ENCOUNTER → 2023-04-10 23:32 | Outpatient (BNV) | payer MEDICARE, MEDICAID, SELFPAY | PROVIDERS: Admitting Provider Internal Medicine; Emergency Provider Internal Medicine; PCP Internal Medicine; Visit Provider Internal Medicine | DX: I50.43 Acute on chronic combined systolic (congestive) and diastolic (congestive) heart failure (principal); N18.6 End stage renal disease; Z99.2 Dependence on renal dialysis | CPT/HCPCS: 99223; 99233 ==

== ENCOUNTER → 2023-04-10 23:32 | Outpatient (BNV) | payer MEDICARE, MEDICAID, SELFPAY | PROVIDERS: Admitting Provider Internal Medicine; Emergency Provider Internal Medicine; PCP Internal Medicine; Visit Provider Psychiatry & Neurology Neurology | DX: G25.81 Restless legs syndrome (principal); N18.6 End stage renal disease; Z99.2 Dependence on renal dialysis | CPT/HCPCS: 99222 ==

== ENCOUNTER 2023-04-27 14:17 | Emergency (ER) | payer MEDICARE, MEDICAID, SELFPAY ==
[2023-04-27 15:03] VITALS: BP 169/59; PULSE 70; RESP 16; TEMP 36.7; O2SAT 92; BMI 29.0
--- NOTE | 2023-04-27 15:13 | ED_ITS ---
HPI - General Adult General Chief complaint: General Medical Stated complaint: HBP Time Seen by Provider: 04/27/23 15:13 Source: patient Mode of arrival: ambulatory Limitations: no limitations History of Present Illness HPI narrative: 68 yo male with history of ESRD on HD,?chronic hypertension here with concern for elevated blood pressure at home the last few days. Patient has no complaints. No change in his medication recently. Related Data Home Medications Medication Instructions Recorded Confirmed albuterol sulfate 90 mcg/actuation 2 puff inhalation Q4H PRN 04/19/22 04/10/23 aerosol inhaler Shortness Of Breath allopurinol 100 mg tablet 100 mg PO MOWEFR@1600 04/19/22 04/10/23 apixaban 5 mg tablet (Eliquis) 5 mg PO BID 04/19/22 04/19/22 aspirin 81 mg tablet,delayed 81 mg PO DAILY 04/19/22 04/10/23 release atorvastatin 40 mg tablet 40 mg PO DAILY 04/19/22 04/10/23 carvedilol 3.125 mg tablet 3.125 mg PO BID 04/19/22 04/11/23 doxazosin 4 mg tablet 4 mg PO BEDTIME 04/19/22 04/10/23 furosemide 80 mg tablet 80 mg PO DAILY 04/19/22 04/10/23 ipratropium 0.5 mg-albuterol 3 mg 3 ml inhalation Q4H PRN Wheezing 04/19/22 04/10/23 (2.5 mg base)/3 mL nebulization soln omeprazole 20 mg capsule,delayed 20 mg PO DAILY 04/19/22 04/10/23 release polyethylene glycol 3350 17 17 g PO DAILY PRN Constipation 04/19/22 04/10/23 gram/dose oral powder sennosides 8.6 mg-docusate sodium 1 tab PO DAILY PRN Constipation 04/19/22 04/10/23 50 mg tablet (Senna-Time S) sevelamer carbonate 800 mg tablet 1,600 mg PO TIDWM 04/19/22 04/19/22 fluticasone fur. 200 mcg-umeclid 1 ea inhalation DAILY 04/10/23 04/10/23 62.5 mcg-vilant 25 mcg inhalat.powder (Trelegy Ellipta) insulin glargine 100 unit/mL (3 34 unit subcut BEDTIME 04/10/23 04/10/23 mL) subcutaneous pen (Lantus Solostar U-100 Insulin) insulin lispro 100 unit/mL 6 unit subcut TID 04/10/23 04/10/23 subcutaneous pen sucroferric oxyhydroxide 500 mg 500 mg PO TID 04/10/23 04/10/23 chewable tablet (Velphoro) acetaminophen 500 mg tablet (Pain 500 mg PO Q4H PRN Pain 04/11/23 04/11/23 Relief Extra Strength (acetaminophen)) Allergies Allergy/AdvReac Type Severity Reaction Status Date / Time No Known Allergies Allergy Verified 04/27/23 15:03 Review of Systems Review of Systems: Yes all other systems are reviewed and are negative Constitutional: Constitutional: Reports no additional constitutional complaints, Denies body ache(s), Denies chills, Denies fever(s), Denies headache(s) and Denies weakness Eyes: Eyes: Reports no additional eye complaints and Denies change in vision ENT: Reports system reviewed and no additional complaints, except as documented, Denies dizziness, Denies headache(s), Denies nasal congestion, Denies nasal discharge and Denies neck pain Cardiovascular: Cardiovascular: Reports no additional cardiovascular complaints, Denies chest pain, Denies leg edema and Denies dyspnea Respiratory: Respiratory: Reports no additional respiratory complaints, Denies cough and Denies dyspnea Gastrointestinal: Gastrointestinal: Reports no additional gastrointestinal complaints, Denies abdominal pain, Denies diarrhea, Denies nausea and Denies vomiting Genitourinary: Genitourinary: Denies urinary incontinence Musculoskeletal: Musculoskeletal: Reports no additional musculoskeletal complaints, Denies back pain, Denies arthralgias, Denies joint swelling, Denies neck pain, Denies numbness and Denies tingling Integumentary/Breasts: Skin/Breast: Reports system reviewed and no additional complaints, except as docu and Denies rash Neurologic: Reports system reviewed and no additional complaints, except as documented, Denies dizziness, Denies headache(s), Denies numbness, Denies tingling and Denies weakness PMFSH Past Medical History Attestation statement: The following information was validated with the patient. Source: old records reviewed Medical History Anemia ESRD (end stage renal disease) Occlusive thrombus Pulmonary edema Noncompliance with CPAP treatment ROBERT (obstructive sleep apnea) Type 2 diabetes mellitus Hyperlipidemia Hypertension 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 Mother No problems noted. Social History Social History Household Members: Family Housing: House Do you presently have visiting nurse or other home services: No Alcohol intake: never Comment: Pt refuses bed alarm Patient Tobacco Use Status: Former Tobacco user service: No Physical Exam ED Vital Signs: Vital Signs - 24 hr 04/27/23 15:03 Temperature 98.1 F Pulse Rate 70 Respiratory Rate 16 Blood Pressure 169/59 H Pulse Oximetry 92 Oxygen Delivery Method Room Air BMI result Body Mass Index 29.0 Const General: cooperative, healthy appearing, comfortable and no acute distress Orientation/consciousness: patient oriented x3 Limitations: no limitations HENMT Head: Yes normal to inspection Ears: hearing grossly normal bilaterally General nose exam: Normal external nose present Face and sinus: Yes normal facial exam Mouth: Normal oral and palatal mucosa present Throat: Yes posterior oropharynx normal Eyes General: appearance normal, both eyes and all related structures Neck Neck: Yes normal visual inspection Chest Chest palpation & inspection: normal inspection of the chest Resp Effort & Inspection: normal respiratory effort Cardio Rate: regular rate Rhythm: regular rhythm Peripheral pulses: Peripheral pulses 2+ throughout Back/Spine/Pelvis Thoracic/Lumbar Spine: thoracic and lumbar spine normal to inspection Skin General skin exam: no rashes or lesions noted Neuro General: patient oriented x3 and moves all extremities Cognition (Neuro): normal cognition Gait exam (Neuro): Normal gait present Extrem General: Yes normal to inspection Medical Decision Making Medical Decision Making MDM Narrative: 68 yo male with history of ESRD on HD,?chronic hypertension here with concern for elevated blood pressure at home the last few days. Patient has no complaints. No change in his medication recently. BP 160 systolic. Asymptomatic in the setting of chronic hypertension Recommend f/u with PCP outpatient. Family and patient agreable. Differential Diagnosis Differential Diagnoses: The differential diagnosis associated with the presentation includes HTN Admission/Observation Consideration of admission/observation: Escalation of care including admission/observation considered Independent Historian Clinical information obtained from an independent historian. History obtained from or confirmed by: Other (SON) Tests considered The following testing was considered but not selected: Asymptomatic htn with no need for labs, ekg or ct head Chronic Conditions Patient?s care impacted by: Hypertension Discharge Plan Discharge Clinical Impression: Hypertension Patient Disposition: Home, Self-Care Instructions: Chronic Hypertension (ED) Prescriptions: No Action atorvastatin 40 mg tablet 40 mg PO DAILY ipratropium-albuterol 0.5 mg-3 mg(2.5 mg base)/3 mL solution for nebulization 3 ml INHALATION Q4H PRN (Reason: Wheezing) sennosides-docusate sodium [Senna-Time S] 8.6-50 mg tablet 1 tab PO DAILY PRN (Reason: Constipation) allopurinol 100 mg tablet 100 mg PO MOWEFR@1600 Rx Instructions: GIVE AFTER DIALYSIS aspirin 81 mg tablet,delayed release (DR/EC) 81 mg PO DAILY carvedilol 3.125 mg tablet 3.125 mg PO BID Rx Instructions: administer with food furosemide 80 mg tablet 80 mg PO DAILY omeprazole 20 mg capsule,delayed release(DR/EC) 20 mg PO DAILY doxazosin 4 mg tablet 4 mg PO BEDTIME polyethylene glycol 3350 17 gram/dose powder 17 g PO DAILY PRN (Reason: Constipation) albuterol sulfate 90 mcg/actuation HFA aerosol inhaler 2 puff INHALATION Q4H PRN (Reason: Shortness Of Breath) sevelamer carbonate 800 mg tablet 1,600 mg PO TIDWM Eliquis 5 mg tablet 5 mg PO BID insulin lispro 100 unit/mL insulin pen 6 unit subcut TID insulin glargine [Lantus Solostar U-100 Insulin] 100 unit/mL (3 mL) insulin p en 34 unit subcut BEDTIME Velphoro 500 mg tablet,chewable 500 mg PO TID Trelegy Ellipta 200-62.5-25 mcg blister with device 1 ea INHALATION DAILY acetaminophen [Pain Relief ES (acetaminophen)] 500 mg tablet 500 mg PO Q4H PRN (Reason: Pain) Referrals: Jade Lewis MD [Primary Care Provider] - 1 week
== END 2023-04-27 16:03 | disposition home or self-care (01) ==
PROVIDERS: Emergency Provider Emergency Medicine
DX: I13.2 Hypertensive heart and chronic kidney disease with heart failure and with stage 5 chronic kidney disease, or end stage renal disease (principal); Z79.899 Other long term (current) drug therapy
CPT/HCPCS: 99282; 99283

== ENCOUNTER 2023-06-19 14:14 | Observation (INO) | payer MEDICARE, MEDICAID, SELFPAY ==
--- NOTE | ~2023-06-19 | XR_ITS ---
EXAMINATION: XR CHEST CLINICAL INFORMATION: Status post thoracentesis and pleural effusion drainage. COMPARISON: Chest radiograph dated 06/19/2023. TECHNIQUE: 2 views of the chest were obtained. FINDINGS: The trachea is in normal anatomic position. The cardiac silhouette remains stable in size. The right pleural effusion appears minimally smaller when compared with the prior chest radiograph. There is linear atelectasis at the left lung base, unchanged. No left-sided pleural effusion. No pneumothorax. There are left subclavian vascular stents. XR/XR chest 2V IMPRESSION: The right pleural effusion is minimally smaller when compared with the prior chest radiograph. No pneumothorax. The remainder of the examination is unchanged.
--- NOTE | ~2023-06-19 | XR_ITS ---
EXAMINATION: XR CHEST CLINICAL INFORMATION: Pain Patient states chest pain and trouble breathing COMPARISON: Chest 04/18/2023, 04/10/2023 TECHNIQUE: 2 views of the chest were obtained. FINDINGS: There is interval development of a large right pleural effusion with mild associated compression atelectasis. There is slight patchy opacity at the left lung base consistent with atelectasis and/or pneumonia. No left pleural effusion. No pneumothorax or interstitial pulmonary edema. The right-sided cardiac silhouette is obscured by overlying effusion. There is calcification of the thoracic aorta indicative of atherosclerotic disease. Left axillary/subclavian stents are noted. No acute osseous abnormality. XR/XR chest 2V IMPRESSION: 1. Interval development of large right pleural effusion with mild associated compression atelectasis since 04/18/2023. 2. Left lower lobe atelectasis and/or pneumonia.
--- NOTE | ~2023-06-19 | US_ITS ---
PROCEDURE: Ultrasound-guided right thoracentesis History: Right pleural effusion Specimen: None Access: 5 Sammarinese Yueh catheter Medications: 10 mL 1% lidocaine TECHNIQUE/FINDINGS Appropriate preprocedural clinical history and imaging studies were reviewed. The patient was brought to the department and placed in the seated position. Ultrasound images of the right thorax were obtained to localize a moderate pleural effusion. Permanent ultrasound images were saved. Risks and benefits and possible complications were discussed with the patient and consent form was signed. An area of the patient's right back was prepped and draped in usual sterile fashion. 10 mL of 1% lidocaine was used to obtain local anesthesia of the skin and deeper tissues. A standard small bore needle was introduced to sample pleural fluid and demonstrate a safe access route. A 5 Sammarinese Yueh catheter was then used to access the pleural cavity. 900 ml of non-clotting, blood tinged fluid was removed passively. The catheter was then removed. A dressing was applied. A postprocedure chest x-ray will be performed and will be dictated separately. There were no immediate complications. The procedure was performed by Jalen Becerra PA-C and supervised by Dr. Galindo US/US thoracentesis Impression: Ultrasound-guided right thoracentesis
--- NOTE | ~2023-06-19 | XR_ITS ---
EXAMINATION: XR CHEST CLINICAL INFORMATION: Status post right thoracentesis. COMPARISON: 06/19/2023 at 13:36p.m. TECHNIQUE: Frontal view of the chest was obtained. FINDINGS: There is no gross pneumothorax. Lung volumes are low. Stable cardiomediastinal silhouette. Right pleural effusion is slightly decreased in size with similar bibasilar opacities. No gross left-sided pleural effusion. Redemonstration of left-sided vascular stents. XR/XR chest 1V IMPRESSION: No gross pneumothorax. Right pleural effusion is slightly decreased.
--- NOTE | 2023-06-19 15:14 | ED_ITS ---
HPI - General Adult General Chief complaint: Dyspnea Stated complaint: Fluid in lungs-dialysis patient Time Seen by Provider: 06/19/23 15:52 Source: patient, family ( Son) and revenue field agent Mode of arrival: ambulatory Limitations: no limitations History of Present Illness HPI narrative: 68 year male with pertinent history of ESRD on dialysis MWF, dm 2 on insulin, HTN, HLD came in for evaluation of worsening of shortness of breath, with right- sided pleuritic chest pain mostly with inspiration, known to have right pleural effusion that is scheduled to be drained via thoracocentesis by his molded goods inspector trimmer at [facility]. Patient last dialysis was today as reported by son. Patient still makes some urine taking Lasix at home. Related Data Home Medications ?Medication ?Instructions ?Recorded ?Confirmed albuterol sulfate 90 mcg/actuation 2 puff inhalation Q4H PRN 04/19/22 04/10/23 aerosol inhaler Shortness Of Breath allopurinol 100 mg tablet 100 mg PO MOWEFR@1600 04/19/22 04/10/23 apixaban 5 mg tablet (Eliquis) 5 mg PO BID 04/19/22 04/19/22 aspirin 81 mg tablet,delayed 81 mg PO DAILY 04/19/22 04/10/23 release atorvastatin 40 mg tablet 40 mg PO DAILY 04/19/22 04/10/23 carvedilol 3.125 mg tablet 3.125 mg PO BID 04/19/22 04/11/23 doxazosin 4 mg tablet 4 mg PO BEDTIME 04/19/22 04/10/23 furosemide 80 mg tablet 80 mg PO DAILY 04/19/22 04/10/23 ipratropium 0.5 mg-albuterol 3 mg 3 ml inhalation Q4H PRN Wheezing 04/19/22 04/10/23 (2.5 mg base)/3 mL nebulization soln omeprazole 20 mg capsule,delayed 20 mg PO DAILY 04/19/22 04/10/23 release polyethylene glycol 3350 17 17 g PO DAILY PRN Constipation 04/19/22 04/10/23 gram/dose oral powder sennosides 8.6 mg-docusate sodium 1 tab PO DAILY PRN Constipation 04/19/22 04/10/23 50 mg tablet (Senna-Time S) sevelamer carbonate 800 mg tablet 1,600 mg PO TIDWM 04/19/22 04/19/22 fluticasone fur. 200 mcg-umeclid 1 ea inhalation DAILY 04/10/23 04/10/23 62.5 mcg-vilant 25 mcg inhalat.powder (Trelegy Ellipta) insulin glargine 100 unit/mL (3 34 unit subcut BEDTIME 04/10/23 04/10/23 mL) subcutaneous pen (Lantus Solostar U-100 Insulin) insulin lispro 100 unit/mL 6 unit subcut TID 04/10/23 04/10/23 subcutaneous pen sucroferric oxyhydroxide 500 mg 500 mg PO TID 04/10/23 04/10/23 chewable tablet (Velphoro) acetaminophen 500 mg tablet (Pain 500 mg PO Q4H PRN Pain 04/11/23 04/11/23 Relief Extra Strength (acetaminophen)) Allergies Allergy/AdvReac Type Severity Reaction Status Date / Time No Known Allergies Allergy Verified 06/19/23 15:18 Review of Systems 2 Review of Systems: All other systems are reviewed and are negative Constitutional: Reports as per HPI and Reports no additional constitutional complaints Eyes: Reports as per HPI and Reports no additional eye complaints Reports system reviewed and no additional complaints, except as documented Cardiovascular: Reports as per HPI and Reports no additional cardiovascular complaints Respiratory: Reports as per HPI and Reports no additional respiratory complaints Gastrointestinal: Reports as per HPI and Reports no additional gastrointestinal complaints Genitourinary: Reports no additional female genitourinary complaints Musculoskeletal: Reports no additional musculoskeletal complaints Skin/Breast: Reports system reviewed and no additional complaints, except as docu Psychiatric: Reports no additional psychiatric complaints Endocrine: Reports no additional endocrine complaints Hematologic/Lymphatic: Reports no additional hematologic/lymphatic complaints Allergic/Immunologic: Reports no additional allergic/immunologic complaints Reports system reviewed and no additional complaints, except as documented and Reports Abnormal speech present [facility] Past Medical History Medical History Restless leg syndrome Anemia ESRD (end stage renal disease) Occlusive thrombus Pulmonary edema Noncompliance with CPAP treatment ROBERT (obstructive sleep apnea) Type 2 diabetes mellitus Hyperlipidemia Hypertension 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 Mother No problems noted. Social History Social History Household Members: Family Housing: House Do you presently have visiting nurse or other home services: No Alcohol intake: never Comment: Pt refuses bed alarm Patient Tobacco Use Status: Former Tobacco user Smoked in Last 30 Days: No Use of substances other than those prescribed or required for medical reasons: No Advance Directives: No Advance Directives Information Provided: No service: No Physical Exam ED Vital Signs: Vital Signs - 24 hr 06/19/23 15:16 06/19/23 16:06 06/19/23 18:05 Temperature 98.3 F Pulse Rate 78 77 89 Respiratory Rate 18 21 H 20 Blood Pressure 230/99 H 219/96 H 231/104 H Pulse Oximetry 92 90 L 86 L Oxygen Delivery Method Room Air Room Air Room Air Oxygen Flow Rate 06/19/23 19:02 Temperature Pulse Rate 90 Respiratory Rate 26 H Blood Pressure 195/69 H Pulse Oximetry 96 Oxygen Delivery Method Nasal Cannula Oxygen Flow Rate 2 BMI result Body Mass Index 28.5 Vital signs have been reviewed and appear to be correct. Blood pressure elevated. Heart rate normal. Respiratory rate normal. Temperature normal. Oxygen saturation normal. Appearance: Alert. Oriented X3. mild respiratory acute distress. Head: Normal external exam. Normocephalic. Atraumatic. No Leonard signs noted. No raccoon eyes noted Eyes: PERRLA. EOMI. Conjunctiva and sclera normal. Eyelids normal. ENT: TM's Normal. Pharynx normal. Uvula midline. Moist mucous membranes. No trismus noted. No drooling noted. No muffled voice noted. Neck: Normal inspection. Neck supple. FROM. No adenopathy. Thyroid Normal. No meningeal signs. No neck mass noted. CVS: Normal heart rate and rhythm. Heart sound normal. No murmurs noted. Pulses normal throughout. Respiratory: mild respiratory distress. Painless inspiration. Breath sounds normal. No wheezes/rales/rhonchi noted. Chest nontender. No accessory muscle usage noted or decreased air movement noted, no JVD. Abdomen: Soft and nontender. Bowel sounds normal in all 4 quadrants. No distention noted. No organomegaly noted. No visible injury noted. Back: No CVA tenderness. Full range of motion noted. Skin: Skin warm and dry. Normal skin color. Normal skin turgor. No rashes/lesions/lacerations noted. Extremities: No lower extremity edema. Extremities exhibit normal range of motion. Extremities nontender. Neuro: Oriented X 3. Cranial nerve exam: II-XII are grossly intact No motor deficit. No sensory deficit. Reflexes normal. Course Course Course Narrative: RME- 68 year old male presents for evaluation of shortness of breath, dizziness. Patient is a dialysis patient, he is due to have a renal transplant. The patient has had increasing shortness of breath especially since yesterday. He was told that he has ?fluid in the lungs. ? The patient is due to have a procedure by pulmonology. The patient's son describes a chest tube that is being planned for continuous drainage of pleural effusions. The patient's dialysis is Monday, Monday, Monday and he did complete his dialysis treatment this morning. Plan for labs, EKG, chest x-ray Reevaluation(s) Reevaluation #1: Patient started to become hypoxic and more uncomfortable with breathing, O2 sat start to go down to 85% on room air. IR is not available in the hospital today I discussed risk and benefit of doing thoracocentesis please refer to my procedure note for thoracocentesis. Slight elevation of troponin likely due to CKD with no delta change. Great improvement in BP and O2 sat after thoracocentesis with minimal improvement on the chest x-ray. Time: 19:10 Medications Administered Discontinued Medications Generic Name Dose Route Start Last Admin Trade Name Freq PRN Reason Stop Dose Admin Furosemide 20 mg 06/19/23 16:21 06/19/23 16:32 Furosemide 20 Mg/2 Ml Vial IVPUSH 06/19/23 16:22 20 mg ONCE ONE Administration Protocol Hydralazine HCl 10 mg 06/19/23 18:06 06/19/23 18:17 Hydralazine Hcl 20 Mg/Ml Vial IVPUSH 06/19/23 18:07 10 mg ONCE ONE Administration Protocol Lidocaine HCl 5 ml 06/19/23 19:10 06/19/23 19:12 Lidocaine Hcl 2 % Mpf 5 Ml Vial INFILTRATI 06/19/23 19:11 5 ml ONCE ONE Administration Nitroglycerin 1 inch 06/19/23 16:21 06/19/23 16:32 Nitroglycerin 2 % Oint 1 Gm Packet TRANSDERMA 06/19/23 16:22 1 inch ONCE ONE Administration Procedures Procedure Narrative Procedure Narrative: Thoracocentesis. Large right pleural effusion in a symptomatic patient and hypoxic at 85% room air with mild respiratory distress and IR is not available in the hospital today, after checking patient labs no coagulopathy or thrombocytopenia was confirmed, skin over right side of the chest show no cellulitis, benefit and risk was described to the patient using the revenue field agent patient consented for the procedure. Time-out was performed, to identity of the patient was checked, patient was placed in sitting position leaning forward on the table, using ultrasound to appreciate the anatomy of the diaphrgm, liver, and lung. Sizable amount pleural effusion in right lung, local anesthesia 5 mL of 2% of lidocaine was infiltrated in intercostal space right under 7th right rib slightly medial to the mid scapular line, thoracentesis needle was introduced to the space, 1 L of serosanguineous fluid was drained and sent for further analysis, patient blood pressure has improved after the procedure, patient reported significant improvement of breathing, still requiring 2 L of nasal cannula to keep O2 sat above 90%. Repeat x-ray after procedure showed slight improvement in right lung expansion. Medical Decision Making Differential Diagnosis Differential Diagnoses: The differential diagnosis associated with the presentation includes ( Pneumonia, pneumothorax, CHF, ACS, pleural effusion, electrolyte derangement, severe anemia.) Admission/Observation Consideration of admission/observation: Escalation of care including admission/observation considered Consult Healthcare Provider Management of the patient was discussed with: Hospitalist ( Dr. Reddy) Lab Data MDM Lab Attestation statement: I reviewed the patient's lab results. 06/19/23 16:01 06/19/23 20:03 Labs: Lab Results 06/19/23 06/19/23 06/19/23 Range/Units 16:01 19:23 20:03 WBC 8.2 (4.8-10.8) X10*3/uL RBC 4.88 (4.60-5.80) X10*6/uL Hgb 11.1 L (14.0-18.0) g/dl Hct 36.1 L (42.0-52.0) % MCV 74.0 L (80.0-98.0) fL MCH 22.7 L (27.0-33.0) pg MCHC 30.7 L (31.0-36.0) g/dl RDW 15.9 (11.0-16.0) % Plt Count 234 D (160-400) X10*3/uL MPV 10.3 (9.4-12.4) fL Immature Gran % (Auto) 0.5 H (0.0-0.4) % Neut % (Auto) 71.8 (45-73) % Lymph % (Auto) 13.1 L (20-40) % [place] % (Auto) 10.0 (2-11) % Eos % (Auto) 4.2 H (0-4) % Baso % (Auto) 0.4 (0-2) % Lymph # (Auto) 1.1 L (1.2-4.9) X10*3/uL [place] # (Auto) 0.8 (0.1-1.2) X10*3/uL Eos # (Auto) 0.4 (0.0-0.4) X10*3/uL Baso # (Auto) 0.0 (0.0-0.2) X10*3/uL Abs Immat Gran (auto) 0.04 H (0.00-0.03) X10*3/uL Absolute Neuts (auto) 5.9 (2.0-8.3) x10*3/uL Absolute Nucleated RBC 0.030 H (0.0-0.012) X10*3/uL Nucleated RBC % (auto) 0.4 H (0.0-0.2) /100WBC PT 13.0 (11.1-13.3) SEC INR 1.1 (0.9-1.1) Sodium 144 (135-145) mmol/L Potassium 3.9 (3.3-5.1) mmol/L Chloride 103 (96-108) mmol/L Carbon Dioxide 29 (22-29) mmol/L Anion Gap 16 (12-20) BUN 29 H (9-16) mg/dL Creatinine 6.54 H* (0.5-1.4) mg/dL Estim Creat Clear Calc 10.1 Estimated GFR 9 Random Glucose 105 90 (60-115) mg/dL Calcium 9.6 D (8.4-10.2) mg/dL Total Bilirubin 0.5 (0.0-1.0) mg/dL AST 16 (5-37) U/L ALT 25 (0-40) U/L Alkaline Phosphatase 152 H (39-117) U/L Lactate Dehydrogenase 200 (118-273) U/L Troponin I High Sens 46.9 H 48.0 H (<3.5-35.0) ng/L B-Natriuretic Peptide 627 H (<100) pg/mL Total Protein 7.9 7.3 (6.5-8.0) g/dL Albumin 4.2 (3.5-5.0) g/dL Lipase 32 (8-78) U/L Peritoneal WBC 0.475 X10*3/uL Peritoneal RBC 0.069 X10*6/uL Periton Neutrophils 12 % Periton Lymphocytes 17 % Peritoneal Monocytes 36 % Peritoneal Eosinophils 4 % Peritoneal Other Cells 31 % Influenza Type A (PCR) NEGATIVE (Negative) Influenza Type B (PCR) NEGATIVE (Negative) RSV RNA Qual (PCR) NEGATIVE (Negative) SARS-CoV-2 RNA (RT-PCR) NEGATIVE (Negative) Independent Interpretation I performed an independent interpretation of an: Plain X-Ray ( chest: Large right pleural effusion) Radiology Impression Discussion of test interpretation with radiology: I have reviewed the radiologist's reading. (The right pleural effusion is minimally smaller when compared with the prior chest radiograph. No pneumothorax. The remainder of the examination is unchanged.) Critical Care Time Critical Care Time Critical Care Time: Yes Total Critical Care Time: 60 Attestation: The patient was critically ill with a high probability of imminent or life- threatening deterioration. I spent greater than 30 minutes of discontinuous time evaluating the patient, delivering critical care at the bedside, discussing evaluating data with consultants. Critical care time does not include time spent performing separately billable procedures or teaching. Time spent performing critical care was 60 minutes. Discharge Plan Discharge Clinical Impression: Pleural effusion on right, Hypoxia Patient Disposition: Admitted As Inpatient
[2023-06-19 15:16] VITALS: BP 230/99; PULSE 78; RESP 18; TEMP 36.8; O2SAT 92; BMI 28.5
--- NOTE | 2023-06-19 15:16 | ECG_ITS ---
Test Reason : CHEST PAIN/SOB Blood Pressure : / mmHG Vent. Rate : 075 BPM Atrial Rate : 075 BPM P-R Int : 164 ms QRS Dur : 108 ms QT Int : 406 ms P-R-T Axes : 036 -34 070 degrees QTc Int : 453 ms Normal sinus rhythm Left axis deviation Minimal voltage criteria for LVH, may be normal variant ( Oelrichs product ) Septal infarct , age undetermined Abnormal ECG When compared with ECG of 16-APR-2023 10:52, Nonspecific T wave abnormality now evident in Lateral leads Referred By: Jalen León Electronically Signed By:SHEEBA GRIFFITHS
[2023-06-19 16:06] VITALS: BP 219/96; PULSE 77; RESP 21; O2SAT 90
[2023-06-19 16:08] LABS: MANUAL DIFF FLAG NO
[2023-06-19 16:11] LABS: Basophils Percent Auto 0.4 % (0-2); Eosinophils Absolute Auto 0.4 X10*3/uL (0.0-0.4); Eosinophils Percent Auto 4.2 % (0-4); Hematocrit 36.1 % (42.0-52.0); Hemoglobin 11.1 g/dl (14.0-18.0); Imm Gran Abs Auto 0.04 X10*3/uL (0.00-0.03); Imm Gran Pct Auto 0.5 % (0.0-0.4); Lymphocytes Absolute Auto 1.1 X10*3/uL (1.2-4.9); Lymphocytes Percent Auto 13.1 % (20-40); Mean Corpuscular HGB Conc 30.7 g/dl (31.0-36.0); Mean Corpuscular Hemoglobin 22.7 pg (27.0-33.0); Mean Platelet Volume 10.3 fL (9.4-12.4); Monocytes Absolute Auto 0.8 X10*3/uL (0.1-1.2); NRBC Pct Auto 0.4 /100WBC (0.0-0.2); Neutrophils Absolute Auto 5.9 x10*3/uL (2.0-8.3); Neutrophils Percent Auto 71.8 % (45-73); Platelet Count 234 X10*3/uL (160-400); Red Blood Count 4.88 X10*6/uL (4.60-5.80); Red Cell Distribution Width 15.9 % (11.0-16.0); White Blood Count 8.2 X10*3/uL (4.8-10.8)
[2023-06-19 16:17] LABS: INTERNATIONAL NORM RATIO 1.1 (0.9-1.1)
[2023-06-19 16:29] LABS: B Type Natriuretic Peptide 627 pg/mL (<100)
[2023-06-19 16:31] LABS: Troponin-I High Sensitivity 46.9 ng/L (<3.5-35.0)
[2023-06-19] MEDS: Nitroglycerin 2 % Oint 1 GM Packet 1 INCH TRANSDERMA (16:32)
[2023-06-19] MEDS: Furosemide 20 MG/2 ML VIAL IVPUSH (16:32)
--- NOTE | 2023-06-19 16:38 | PC.NURSE ---
1inch nitro paste placed L upper chest per may.
[2023-06-19 16:46] LABS: Influenza A PCR NEGATIVE (Negative); Influenza B PCR NEGATIVE (Negative); Resp Syncy Virus RNA Qual PCR NEGATIVE (Negative); SARS COV2 PCR INHOUSE NEGATIVE (Negative)
[2023-06-19 16:47] LABS: Alanine Aminotransferase 25 U/L (0-40); Albumin Level 4.2 g/dL (3.5-5.0); Alkaline Phosphatase 152 U/L (39-117); Anion Gap 16 (12-20); Aspartate Amino Transferase 16 U/L (5-37); Bilirubin Total 0.5 mg/dL (0.0-1.0); Blood Urea Nitrogen 29 mg/dL (9-16); Calcium 9.6 mg/dL (8.4-10.2); Carbon Dioxide 29 mmol/L (22-29); Chloride 103 mmol/L (96-108); Creatinine Clr Calc Pharmacy 10.1; Estimated Glomerular Filt Rate 9; Glucose Random 105 mg/dL (60-115); Lipase 32 U/L (8-78); Potassium 3.9 mmol/L (3.3-5.1); Sodium 144 mmol/L (135-145); Total Protein 7.9 g/dL (6.5-8.0)
--- NOTE | 2023-06-19 18:02 | PC.NURSE ---
pt reassessed s/p lasix and nitro SPO2 found to be 85-86% on RA. pt also hypertensive 231/104 , this nurse repeated BP manually, 228/100- MD barron aware, pt placed on 2L via NC
[2023-06-19 18:05] VITALS: BP 231/104; PULSE 89; RESP 20; O2SAT 86
[2023-06-19] MEDS: hydrALAZINE HCl 20 MG/ML VIAL 10 MG IVPUSH (18:17)
--- NOTE | 2023-06-19 19:00 | PC.NURSE ---
this nurse observed MD Friend obtain consent from pt to perform paracentesis procedure on pt w/ air traffic control supervisor at bedside. The patient was then placed in a tripod position, with head resting on bedside table, with back exposed. MD friend prepped sterile field, and cleansed the site with CHG swabs. pt was draped and pt was anaesthetized with 6mls of lidocaine 2%. MD friend removed approx 1000ml of sanguineous pleural fluid. pt tolerated procedure well. samples to be sent to lab for analysis. pt verbalizes his pain is improving. call montilla within reach, pt to have f/u xr
[2023-06-19 19:02] VITALS: BP 195/69; PULSE 90; RESP 26; O2SAT 96
[2023-06-19] MEDS: Lidocaine HCl 2 % MPF 5 ML VIAL INFILTRATI (19:12)
[2023-06-19 19:52] LABS: MN% 79.8 %; PMN% 20.2 %; RBC Peritoneal Fluid 0.069 X10*6/uL; WBC Peritoneal Fluid 0.475 X10*3/uL
--- NOTE | 2023-06-19 20:13 | PM.IMHP ---
History of Present Illness Date of Service: 06/19/23 Attending physician on admission: Conor Islas Chief Complaint: sob 68-year-old male with history of ESRD on HD MWF on kidney transplant list (Dr. Shea), insulin-dependent type 2 diabetes, hypertension, hyperlipidemia, ROBERT on CPAP, heart failure with reduced ejection fraction EF 35% and grade 2 diastolic dysfunction presented to the ED earlier today for evaluation of dyspnea that has been ongoing for 1 month. He states that he was in line for renal transplant but was found to have fluid on his lungs. He underwent thoracentesis during admission on 04/12. Pleural fluid analysis at that time largely unremarkable. Negative cytology. However, at dialysis today he was advised that he likely again has fluid on his lungs with recurrent dyspnea and was advised to come to the ED for further evaluation. While in the ED, patient quite hypertensive to 230/99 186/85 on admission following 1 in nitropaste, 10 mg hydralazine, and 20 mg IV Lasix. He was also hypoxic to 86% on room air briefly placed on 2 L supplemental O2. Chest x-ray performed showed interval development large right pleural effusion with mild associated compression atelectasis as well as left lower lobe atelectasis and/or pneumonia. Thoracentesis was performed bedside with 1 L serosanguineous fluid collected. Patient reports he feels markedly improved following the thoracentesis and denies any ongoing dyspnea. He is also maintaining oximetry 95% on room air. He denies any fevers, chills, congestion, abdominal pain, nausea, vomiting, diarrhea, cough, persistent dyspnea, chest pain. Denies any known sick contacts. Hematology studies unremarkable. Creatinine 6.54, BUN 29, electrolyte levels normal. Initial troponin 46.9, repeat pending, BNP 627 (previously 2400). Repeat troponin, LDH, total protein pending. Last echo 04/11 showed moderately decreased LV systolic function with EF 35% and grade 2 diastolic dysfunction. There is moderately decreased right ventricular systolic function but no obvious valvular pathology. Mild pulmonary hypertension also present. Review of Systems Review of Systems: General: No fevers, malaise, unintentional weight loss HEENT: No blurred vision, diplopia. No sore throat, nasal congestion, rhinorrhea, sinus pain, ear pain Cardiovascular: No chest pain, palpitations, or leg edema Respiratory: +sob. No wheezing, cough GI: No abdominal pain, nausea, vomiting, diarrhea, constipation, melena, hematochezia : No dysuria, hematuria, increased urinary frequency, decreased urinary output MSK: No myalgia, back pain Neuro: No headaches, weakness, paresthesias Skin: No rashes or lesions [facility] Medical History Restless leg syndrome Anemia ESRD (end stage renal disease) Occlusive thrombus Pulmonary edema Noncompliance with CPAP treatment ROBERT (obstructive sleep apnea) Type 2 diabetes mellitus Hyperlipidemia Hypertension A-V fistula ESRD on dialysis Falling Congestive heart disease Dialysis complication Family History Father No problems noted. Mother No problems noted. Social History Household Members: Family Housing: House Do you presently have visiting nurse or other home services: No Alcohol intake: never Comment: Pt refuses bed alarm Patient Tobacco Use Status: Former Tobacco user Smoked in Last 30 Days: No Use of substances other than those prescribed or required for medical reasons: No Advance Directives: No Advance Directives Information Provided: No service: No Meds Allergies Allergy/AdvReac Type Severity Reaction Status Date / Time No Known Allergies Allergy Verified 06/19/23 15:18 Active Medications: Current Medications Acetaminophen (Acetaminophen 325 Mg Tablet) 650 mg PO Q6H PRN PRN Reason: Pain, Mild (Pain Scale 1-3) Ondansetron HCl (Ondansetron Hcl 4 Mg/2 Ml Vial) 4 mg IVPUSH Q8H PRN PRN Reason: Nausea and Vomiting Senna (Sennosides 8.6 Mg Tablet) 17.2 mg PO BEDTIME PRN PRN Reason: Constipation Sodium Chloride (0.9 % Sodium Chloride Flush 3 Ml Syringe) 3 ml IVFLUSH [facility] Home Medications ?Medication ?Instructions ?Recorded ?Confirmed ?Last Taken ?Type albuterol sulfate 90 mcg/actuation 2 puff inhalation Q4H PRN 04/19/22 04/10/23 Unknown History aerosol inhaler Shortness Of Breath allopurinol 100 mg tablet 100 mg PO MOWEFR@1600 04/19/22 04/10/23 04/18/22 History apixaban 5 mg tablet (Eliquis) 5 mg PO BID 04/19/22 04/19/22 04/19/22 History aspirin 81 mg tablet,delayed 81 mg PO DAILY 04/19/22 04/10/23 04/19/22 History release atorvastatin 40 mg tablet 40 mg PO DAILY 04/19/22 04/10/23 04/19/22 History carvedilol 3.125 mg tablet 3.125 mg PO BID 04/19/22 04/11/23 04/19/22 History doxazosin 4 mg tablet 4 mg PO BEDTIME 04/19/22 04/10/23 04/18/22 History furosemide 80 mg tablet 80 mg PO DAILY 04/19/22 04/10/23 04/19/22 History ipratropium 0.5 mg-albuterol 3 mg 3 ml inhalation Q4H PRN Wheezing 04/19/22 04/10/23 Unknown History (2.5 mg base)/3 mL nebulization soln omeprazole 20 mg capsule,delayed 20 mg PO DAILY 04/19/22 04/10/23 04/19/22 History release polyethylene glycol 3350 17 17 g PO DAILY PRN Constipation 04/19/22 04/10/23 Unknown History gram/dose oral powder sennosides 8.6 mg-docusate sodium 1 tab PO DAILY PRN Constipation 04/19/22 04/10/23 04/19/22 History 50 mg tablet (Senna-Time S) sevelamer carbonate 800 mg tablet 1,600 mg PO TIDWM 04/19/22 04/19/22 04/19/22 History fluticasone fur. 200 mcg-umeclid 1 ea inhalation DAILY 04/10/23 04/10/23 Unknown History 62.5 mcg-vilant 25 mcg inhalat.powder (Trelegy Ellipta) insulin glargine 100 unit/mL (3 34 unit subcut BEDTIME 04/10/23 04/10/23 Unknown History mL) subcutaneous pen (Lantus Solostar U-100 Insulin) insulin lispro 100 unit/mL 6 unit subcut TID 04/10/23 04/10/23 Unknown History subcutaneous pen sucroferric oxyhydroxide 500 mg 500 mg PO TID 04/10/23 04/10/23 Unknown History chewable tablet (Velphoro) acetaminophen 500 mg tablet (Pain 500 mg PO Q4H PRN Pain 04/11/23 04/11/23 Unknown History Relief Extra Strength (acetaminophen)) Physical Exam Vital Signs and Narrative: Vital Signs: Last Vital Signs Temp 98.3 F 06/19/23 15:16 Pulse 90 06/19/23 19:02 Resp 26 H 06/19/23 19:02 BP 195/69 H 06/19/23 19:02 Pulse Ox 96 06/19/23 19:02 O2 Del Method Nasal Cannula 06/19/23 19:02 O2 Flow Rate 2 06/19/23 19:02 BMI result Body Mass Index 28.5 Constitutional - Awake and Alert, No apparent distress Eyes - PERRLA, EOMI Cardiovascular - S1S2, RRR, No edema Respiratory - Normal lung expansion, Normal respiratory effort, No respiratory distress, diminished lung sounds RLL otherwise CTA Extremities - no calf tenderness bilaterally, no swelling Skin - Warm/Dry Neurological - Alert & oriented x3 Psychological - Appropriate affect Results Labs 06/19/23 16:01 06/19/23 16:01 Labs: Laboratory Results - last 24 hr 06/19/23 06/19/23 16:01 19:23 MCV 74.0 L MCH 22.7 L MCHC 30.7 L RDW 15.9 Plt Count 234 D MPV 10.3 Immature Gran % (Auto) 0.5 H Neut % (Auto) 71.8 Lymph % (Auto) 13.1 L [place] % (Auto) 10.0 Eos % (Auto) 4.2 H Baso % (Auto) 0.4 Lymph # (Auto) 1.1 L [place] # (Auto) 0.8 Eos # (Auto) 0.4 Baso # (Auto) 0.0 Abs Immat Gran (auto) 0.04 H Absolute Neuts (auto) 5.9 Absolute Nucleated RBC 0.030 H Nucleated RBC % (auto) 0.4 H PT 13.0 INR 1.1 Anion Gap 16 Estim Creat Clear Calc 10.1 Estimated GFR 9 Random Glucose 105 Calcium 9.6 D Total Bilirubin 0.5 AST 16 ALT 25 Alkaline Phosphatase 152 H Troponin I High Sens 46.9 H B-Natriuretic Peptide 627 H Total Protein 7.9 Albumin 4.2 Lipase 32 Peritoneal WBC 0.475 Peritoneal RBC 0.069 Influenza Type A (PCR) NEGATIVE Influenza Type B (PCR) NEGATIVE RSV RNA Qual (PCR) NEGATIVE SARS-CoV-2 RNA (RT-PCR) NEGATIVE Imaging Radiologist's Impressions: Impressions Chest X-Ray 06/19/23 15:46 IMPRESSION: 1. Interval development of large right pleural effusion with mild associated compression atelectasis since 04/18/2023. 2. Left lower lobe atelectasis and/or pneumonia. Assessment and Plan (1) Pleural effusion on right: Status: Acute Plan 68-year-old male with history of ESRD on HD MWF on kidney transplant list (Dr. Shea), insulin-dependent type 2 diabetes, hypertension, hyperlipidemia, ROBERT on CPAP, heart failure with reduced ejection fraction EF 35% and grade 2 diastolic dysfunction to be observed for recurrent pleural effusion. #Recurrent pleural effusion- etiology unclear -No acute CHF exacerbation, renal function appears baseline and patient compliant with dialysis and diuretics -Cyctology 04/12 thoracentesis negative for malignancy and overall unremarkable -bedside thoracentesis performed draining 1 L serosanguineous fluid. Pleural fluid analysis pending -repeat CXR with minimal improvement compared to CXR prior to thoracentesis -consult to IR for CT-guided thoracentesis. NPO after midnight -no persistent hypoxia -monitor vital signs # uncontrolled hypertension in setting of ESRD -186/85 on admission -received 10mg hydralazine, 1 in nitro paste, and 20 mg IV Lasix in the ED -resume carvedilol 3.125 b.i.d. Will likely need further adjustments -monitor blood pressure closely # elevated troponin -has chronically elevated troponin levels. Initial troponin this evening 46.9, repeat pending -no anginal chest pain -likely demand due to uncontrolled hypertension as well as end-stage renal disease # heart failure reduced ejection fraction -does not appear to be acutely exacerbated -continue po diuretics # insulin-dependent type 2 diabetes -dose adjusted basal insulin -Admelog on sliding scale -POC glucose, diabetic diet #ROBERT -cpap DVT prophylaxis-SCPs Full code Quality Stroke Does the patient have a stroke diagnosis?: No VTE Prior VTE?: Yes VTE Risk Level:: Medical - moderate - high VTE Device Contraindication: Treatment Not Indicated VTE Drug Contraindication: N/A - Med Ordered
[2023-06-19 20:26] LABS: Glucose Random 90 mg/dL (60-115); Lactate Dehydrogenase 200 U/L (118-273); Total Protein 7.3 g/dL (6.5-8.0)
[2023-06-19 20:28] LABS: BF Shift QC OK YES; Man Diluent Bkgrd OK YES
[2023-06-19 20:32] LABS: Eosinophils Peritoneal Fl 4 %; Lymphocyte Peritoneal Fl 17 %; Monocytes Peritoneal Fl 36 %; Neutrophils Peritoneal Fluid 12 %
[2023-06-19 20:33] LABS: Other Peritioneal Fl 31 %
[2023-06-19] MEDS: carvediloL 3.125 MG TABLET PO (21:37)
[2023-06-19] MEDS: Doxazosin Mesylate 2 MG TABLET 4 MG PO (21:37)
[2023-06-19 21:38] VITALS: BP 186/85; PULSE 96; RESP 20; O2SAT 95
[2023-06-19 21:47] LABS: Glucose, Whole Blood 80 mg/dL (60-115)
--- NOTE | 2023-06-19 21:47 | PC.NURSE ---
Evening POC 80, patient has not eaten today, to be NPO at midnight for IR in am, offered snack now, scheduled PM lantus held.
[2023-06-20] VITALS (7 sets, daily range): BP systolic 131–185; BP diastolic 64–86; PULSE 73–85; RESP 17–18; TEMP 36.6–36.9; O2SAT 93–100; BMI 29.6
[2023-06-20] MEDS: Omeprazole 20 MG CAPSULE.DR PO (05:40)
[2023-06-20 07:08] LABS: MANUAL DIFF FLAG NO
[2023-06-20 07:27] LABS: Glucose, Whole Blood 76 mg/dL (60-115)
[2023-06-20 08:08] LABS: Anion Gap 17 (12-20); Blood Urea Nitrogen 37 mg/dL (9-16); Calcium 8.9 mg/dL (8.4-10.2); Carbon Dioxide 26 mmol/L (22-29); Chloride 104 mmol/L (96-108); Glucose Random 80 mg/dL (60-115); Potassium 4.2 mmol/L (3.3-5.1); Sodium 143 mmol/L (135-145)
[2023-06-20 08:09] LABS: Creatinine Clr Calc Pharmacy 8.5; Estimated Glomerular Filt Rate 7
[2023-06-20] MEDS: Fluticasone/Umeclidinium/Vilanterol 200/62.5/25 BLST.W.DEV 1 PUFF INHALE (08:26)
[2023-06-20 08:36] LABS: Basophils Percent Auto 0.3 % (0-2); Eosinophils Absolute Auto 0.4 X10*3/uL (0.0-0.4); Eosinophils Percent Auto 4.4 % (0-4); Hematocrit 33.6 % (42.0-52.0); Hemoglobin 10.2 g/dl (14.0-18.0); Imm Gran Abs Auto 0.03 X10*3/uL (0.00-0.03); Imm Gran Pct Auto 0.4 % (0.0-0.4); Lymphocytes Absolute Auto 1.4 X10*3/uL (1.2-4.9); Lymphocytes Percent Auto 17.8 % (20-40); Mean Corpuscular HGB Conc 30.4 g/dl (31.0-36.0); Mean Corpuscular Hemoglobin 22.6 pg (27.0-33.0); Mean Corpuscular Volume 74.5 fL (80.0-98.0); Mean Platelet Volume 10.9 fL (9.4-12.4); Monocytes Absolute Auto 0.9 X10*3/uL (0.1-1.2); NRBC Pct Auto 0.3 /100WBC (0.0-0.2); Neutrophils Absolute Auto 5.3 x10*3/uL (2.0-8.3); Neutrophils Percent Auto 66.1 % (45-73); Platelet Count 208 X10*3/uL (160-400); Red Blood Count 4.51 X10*6/uL (4.60-5.80); Red Cell Distribution Width 15.7 % (11.0-16.0)
[2023-06-20] MEDS: Atorvastatin Calcium 40 MG TABLET PO (09:11)
[2023-06-20] MEDS: Furosemide 40 MG TABLET 80 MG PO (09:11)
[2023-06-20] MEDS: carvediloL 3.125 MG TABLET PO (09:11)
[2023-06-20] MEDS: 0.9 % Sodium Chloride Flush 3 ML SYRINGE IVFLUSH (09:12)
--- NOTE | 2023-06-20 11:43 | PM.EVENT ---
Event Note Date of Service: 06/20/23 Event Note: Procedure Note: US Right thoracentesis 1000 ml non clotting blood tinged fluid removed. No appreciable pneumothorax on post cxr Jalen MONTERO Interventional Radiology Time Spent With Patient Time: Total time managing care of this patient today ____ minutes.
[2023-06-20] MEDS: Lidocaine HCl 1 % MPF 5 ML VIAL SUBCUT (11:52)
[2023-06-20 12:05] LABS: Glucose, Whole Blood 75 mg/dL (60-115)
--- NOTE | 2023-06-20 13:18 | MHC.CM.PN ---
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
--- NOTE | 2023-06-20 13:39 | HO.THORCONS ---
Documented by User: Briana Valerio PA-C 06/20/23 14:57 History of Present Illness Consult details Consult date: 06/20/23 Narrative: 68-year-old male with history of ESRD on HD MWF on kidney transplant list, diabetes, hypertension, hyperlipidemia, ROBERT on CPAP, heart failure EF 35% who presented to the ED earlier today for evaluation of dyspnea that has been ongoing for 1 month. He was previously admitted in 04/29 for respiratory failure, right sided pleural effusion and underwent thoracentesis during the admission. Pleural fluid analysis at that time was largely unremarkable with negative cytology. At dialysis, he reported his dyspnea and was advised to come to the ED for further evaluation from dialysis. In the ED, he was hypoxic to 86% on room air and CXR performed showed interval development large right pleural effusion with mild associated compression atelectasis. Thoracentesis was performed at bedside with 1 L serosanguineous fluid collected without much improvement on f/u imaging. He then underwent thoracentesis earler today. He feels improved following and denies any ongoing dyspnea. He denies any fevers, chills, congestion, abdominal pain, nausea, vomiting, diarrhea, cough, persistent dyspnea, chest pain. Denies any known sick contacts. Review of Systems Constitutional: Constitutional: Denies chills and Denies fever(s) ENT: Denies dizziness Cardiovascular: Cardiovascular: Denies chest pain and Reports dyspnea Respiratory: Respiratory: Reports dyspnea Gastrointestinal: Gastrointestinal: Reports as per HPI Integumentary/Breasts: Skin/Breast: Denies rash Neurologic: Denies dizziness PMFSH Past Medical History Medical History Restless leg syndrome Anemia ESRD (end stage renal disease) Occlusive thrombus Pulmonary edema Noncompliance with CPAP treatment ROBERT (obstructive sleep apnea) Type 2 diabetes mellitus Hyperlipidemia Hypertension 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 Mother No problems noted. Social History Social History Household Members: Family Household Members Other:: son Housing: Apartment Do you presently have visiting nurse or other home services: Yes Alcohol intake: never Comment: Pt refuses bed alarm Patient Tobacco Use Status: Former Tobacco user service: No Meds Allergies Allergy/AdvReac Type Severity Reaction Status Date / Time No Known Allergies Allergy Verified 06/19/23 15:18 Active Medications: Current Medications Acetaminophen (Acetaminophen 325 Mg Tablet) 650 mg PO Q6H PRN PRN Reason: Pain, Mild (Pain Scale 1-3) Albuterol Sulfate (Albuterol Sulfate 90 Mcg 8 Gm Inhaler) 2 puff INHALE Q4H PRN PRN Reason: Shortness Of Breath Allopurinol (Allopurinol 100 Mg Tablet) 100 mg PO MOWEFR@1600 [place] Atorvastatin Calcium (Atorvastatin Calcium 40 Mg Tablet) 40 mg PO DAILY [facility] Last Admin: 06/20/23 09:11 Dose: 40 mg Carvedilol (Carvedilol 3.125 Mg Tablet) 3.125 mg PO BID [facility]; Protocol Last Admin: 06/20/23 09:11 Dose: 3.125 mg Doxazosin Mesylate (Doxazosin Mesylate 2 Mg Tablet) 4 mg PO BEDTIME [facility]; Protocol Last Admin: 06/19/23 21:37 Dose: 4 mg Fluticasone/Umeclidinium/Vilanterol (Fluticasone/Umeclidinium/Vilanterol 200/62.5/25 Blst.W.Dev) 1 puff INHALE RDAILY [facility] Last Admin: 06/20/23 08:26 Dose: 1 puff Furosemide (Furosemide 40 Mg Tablet) 80 mg PO DAILY [facility]; Protocol Last Admin: 06/20/23 09:11 Dose: 80 mg Glucose (Glucose Gel 15 Gm Gel..Gram.) 15 gm PO Q15M PRN; Protocol PRN Reason: per Hypoglycemia Standing Ord. Dextrose (D10) 250 mls @ 750 mls/hr IV Q15M PRN; Protocol PRN Reason: per Hypoglycemia Standing Ord. Insulin Glargine (Insulin Glargine,Hum.Rec.Anlog 100 Unit/Ml 10 Ml Vial) 24 unit SUBCUT BEDTIME [facility] Last Admin: 06/19/23 21:45 Dose: Not Given Insulin Human Lispro (Insulin Lispro 100 Unit/Ml 3 Ml Vial) 0 unit SUBCUT QIDACHS [facility]; Protocol Last Admin: 06/20/23 12:04 Dose: Not Given Non-Formulary Medication (Sucroferric Oxyhydroxide [Velphoro]) 500 mg PO TID [facility] Omeprazole (Omeprazole 20 Mg Capsule.Dr) 20 mg PO DAILY@0630 [facility] Last Admin: 06/20/23 05:40 Dose: 20 mg Ondansetron HCl (Ondansetron Hcl 4 Mg/2 Ml Vial) 4 mg IVPUSH Q8H PRN PRN Reason: Nausea and Vomiting Senna (Sennosides 8.6 Mg Tablet) 17.2 mg PO BEDTIME PRN PRN Reason: Constipation Sodium Chloride (0.9 % Sodium Chloride Flush 3 Ml Syringe) 3 ml IVFLUSH QSHIFT [facility] Last Admin: 06/20/23 09:12 Dose: 3 ml Home Medications ?Medication ?Instructions ?Recorded ?Confirmed ?Last Taken ?Type albuterol sulfate 90 mcg/actuation 2 puff inhalation Q4H PRN 04/19/22 06/19/23 Unknown History aerosol inhaler Shortness Of Breath allopurinol 100 mg tablet 100 mg PO MOWEFR@1600 04/19/22 06/19/23 04/18/22 History atorvastatin 40 mg tablet 40 mg PO DAILY 04/19/22 06/19/23 04/19/22 History carvedilol 3.125 mg tablet 3.125 mg PO BID 04/19/22 06/19/23 04/19/22 History doxazosin 4 mg tablet 4 mg PO BEDTIME 04/19/22 06/19/23 04/18/22 History furosemide 80 mg tablet 80 mg PO DAILY 04/19/22 06/19/23 04/19/22 History ipratropium 0.5 mg-albuterol 3 mg 3 ml inhalation Q4H PRN Wheezing 04/19/22 06/19/23 Unknown History (2.5 mg base)/3 mL nebulization soln omeprazole 20 mg capsule,delayed 20 mg PO DAILY 04/19/22 06/19/23 04/19/22 History release sennosides 8.6 mg-docusate sodium 1 tab PO DAILY PRN Constipation 04/19/22 06/19/23 04/19/22 History 50 mg tablet (Senna-Time S) fluticasone fur. 200 mcg-umeclid 1 ea inhalation DAILY 04/10/23 06/19/23 Unknown History 62.5 mcg-vilant 25 mcg inhalat.powder (Trelegy Ellipta) insulin glargine 100 unit/mL (3 34 unit subcut BEDTIME 04/10/23 06/19/23 Unknown History mL) subcutaneous pen (Lantus Solostar U-100 Insulin) insulin lispro 100 unit/mL 6 unit subcut TID 04/10/23 06/19/23 Unknown History subcutaneous pen sucroferric oxyhydroxide 500 mg 500 mg PO TID 04/10/23 06/19/23 Unknown History chewable tablet (Velphoro) aspirin 81 mg tablet,delayed 81 mg PO DAILY 06/20/23 06/20/23 Unknown History release lisinopril 10 mg tablet 10 mg PO DAILY 06/20/23 06/20/23 Unknown History nifedipine 90 mg tablet,extended 90 mg PO BID 06/20/23 06/20/23 Unknown History release polyethylene glycol 3350 17 17 g PO DAILY PRN constipation 06/20/23 06/20/23 Unknown History gram/dose oral powder pregabalin 75 mg capsule 75 mg PO DAILY 06/20/23 06/20/23 Unknown History Physical Exam Vital Signs: Vital Signs: Last Vital Signs Temp 98.4 F 06/20/23 07:17 Pulse 73 06/20/23 12:40 Resp 18 06/20/23 12:40 BP 150/86 H 06/20/23 12:40 Pulse Ox 96 06/20/23 12:40 O2 Del Method Room Air 06/20/23 12:40 O2 Flow Rate 2.0 06/20/23 07:17 BMI result Body Mass Index 29.6 Const: General: comfortable, no acute distress and alert Orientation/consciousness: patient oriented x3 Resp: Effort & Inspection: normal respiratory effort, able to speak in complete sentences and no respiratory distress Cardio: Rate: regular rate Skin: General skin exam: no rashes or lesions noted Neuro: General: patient oriented x3 Results Labs 06/20/23 05:31 06/20/23 05:31 Labs: Abnormal lab results 06/19/23 06/19/23 06/20/23 Range/Units 16:01 20:03 05:31 RBC 4.51 L (4.60-5.80) X10*6/uL Hgb 11.1 L 10.2 L (14.0-18.0) g/dl Hct 36.1 L 33.6 L (42.0-52.0) % MCV 74.0 L 74.5 L (80.0-98.0) fL MCH 22.7 L 22.6 L (27.0-33.0) pg MCHC 30.7 L 30.4 L (31.0-36.0) g/dl Immature Gran % (Auto) 0.5 H (0.0-0.4) % Lymph % (Auto) 13.1 L 17.8 L (20-40) % Eos % (Auto) 4.2 H 4.4 H (0-4) % Lymph # (Auto) 1.1 L (1.2-4.9) X10*3/uL Abs Immat Gran (auto) 0.04 H (0.00-0.03) X10*3/uL Absolute Nucleated RBC 0.030 H 0.020 H (0.0-0.012) X10*3/uL Nucleated RBC % (auto) 0.4 H 0.3 H (0.0-0.2) /100WBC BUN 29 H 37 H (9-16) mg/dL Creatinine 6.54 H* 7.89 H* (0.5-1.4) mg/dL Alkaline Phosphatase 152 H (39-117) U/L Troponin I High Sens 46.9 H 48.0 H (<3.5-35.0) ng/L B-Natriuretic Peptide 627 H (<100) pg/mL Short CBC 06/19/23 06/20/23 Range/Units 16:01 05:31 WBC 8.2 8.0 (4.8-10.8) X10*3/uL Hgb 11.1 L 10.2 L (14.0-18.0) g/dl Hct 36.1 L 33.6 L (42.0-52.0) % Plt Count 234 D 208 (160-400) X10*3/uL BMP 06/19/23 06/20/23 16:01 05:31 Sodium 144 143 Potassium 3.9 4.2 Chloride 103 104 Carbon Dioxide 29 26 BUN 29 H 37 H Creatinine 6.54 H* 7.89 H* Calcium 9.6 D 8.9 D Liver Function 06/19/23 Range/Units 16:01 Total Bilirubin 0.5 (0.0-1.0) mg/dL AST 16 (5-37) U/L ALT 25 (0-40) U/L Alkaline Phosphatase 152 H (39-117) U/L Albumin 4.2 (3.5-5.0) g/dL All other labs normal. Imaging Chest x-ray: report reviewed and image reviewed Assessment and Plan (1) ESRD on dialysis: Status: Acute (2) Acute on chronic systolic and diastolic heart failure, NYHA class 3: Status: Acute (3) Recurrent pleural effusion: Status: Acute Plan 68-year-old male with history of ESRD on HD MWF on kidney transplant list, diabetes, hypertension, hyperlipidemia, ROBERT on CPAP, heart failure EF 35% who presented to the ED earlier today for evaluation of dyspnea found to have recurrent pleural effusion. Cytology negative on previous studies. He is s/p thoracentesis and symptoms have resolved. If this recurs, would recommend chest tube placement to perform pleurodesis once effusion resolved. Procedures Date of Service Date of Service: 06/20/23 Documented by User: Rohith Valdes MD 06/20/23 17:41 PMFSH Past Medical History Medical History Restless leg syndrome Anemia ESRD (end stage renal disease) Occlusive thrombus Pulmonary edema Noncompliance with CPAP treatment ROBERT (obstructive sleep apnea) Type 2 diabetes mellitus Hyperlipidemia Hypertension 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 Mother No problems noted. Social History Social History Household Members: Family Household Members Other:: son Housing: Apartment Do you presently have visiting nurse or other home services: Yes Alcohol intake: never Comment: Pt refuses bed alarm Patient Tobacco Use Status: Former Tobacco user service: No Meds Allergies Allergy/AdvReac Type Severity Reaction Status Date / Time No Known Allergies Allergy Verified 06/19/23 15:18 Home Medications ?Medication ?Instructions ?Recorded ?Confirmed ?Last Taken ?Type albuterol sulfate 90 mcg/actuation 2 puff inhalation Q4H PRN 04/19/22 06/19/23 Unknown History aerosol inhaler Shortness Of Breath allopurinol 100 mg tablet 100 mg PO MOWEFR@1600 04/19/22 06/19/23 04/18/22 History atorvastatin 40 mg tablet 40 mg PO DAILY 04/19/22 06/19/23 04/19/22 History carvedilol 3.125 mg tablet 3.125 mg PO BID 04/19/22 06/19/23 04/19/22 History doxazosin 4 mg tablet 4 mg PO BEDTIME 04/19/22 06/19/23 04/18/22 History furosemide 80 mg tablet 80 mg PO DAILY 04/19/22 06/19/23 04/19/22 History ipratropium 0.5 mg-albuterol 3 mg 3 ml inhalation Q4H PRN Wheezing 04/19/22 06/19/23 Unknown History (2.5 mg base)/3 mL nebulization soln omeprazole 20 mg capsule,delayed 20 mg PO DAILY 04/19/22 06/19/23 04/19/22 History release sennosides 8.6 mg-docusate sodium 1 tab PO DAILY PRN Constipation 04/19/22 06/19/23 04/19/22 History 50 mg tablet (Senna-Time S) fluticasone fur. 200 mcg-umeclid 1 ea inhalation DAILY 04/10/23 06/19/23 Unknown History 62.5 mcg-vilant 25 mcg inhalat.powder (Trelegy Ellipta) insulin glargine 100 unit/mL (3 34 unit subcut BEDTIME 04/10/23 06/19/23 Unknown History mL) subcutaneous pen (Lantus Solostar U-100 Insulin) insulin lispro 100 unit/mL 6 unit subcut TID 04/10/23 06/19/23 Unknown History subcutaneous pen sucroferric oxyhydroxide 500 mg 500 mg PO TID 04/10/23 06/19/23 Unknown History chewable tablet (Velphoro) aspirin 81 mg tablet,delayed 81 mg PO DAILY 06/20/23 06/20/23 Unknown History release lisinopril 10 mg tablet 10 mg PO DAILY 06/20/23 06/20/23 Unknown History nifedipine 90 mg tablet,extended 90 mg PO BID 06/20/23 06/20/23 Unknown History release polyethylene glycol 3350 17 17 g PO DAILY PRN constipation 06/20/23 06/20/23 Unknown History gram/dose oral powder pregabalin 75 mg capsule 75 mg PO DAILY 06/20/23 06/20/23 Unknown History Results Labs 06/20/23 05:31 06/20/23 05:31 Assessment and Plan (1) ESRD on dialysis: Status: Acute (2) Acute on chronic systolic and diastolic heart failure, NYHA class 3: Status: Acute (3) Recurrent pleural effusion: Status: Acute Procedures Date of Service Date of Service: 06/20/23
--- NOTE | 2023-06-20 14:31 | PHA.MEDREC ---
Pharmacy Consult ? Medication Reconciliation Pharmacy has completed the medication reconciliation. I reviewed med rec done by nursing staff and went to talk to patient. Patient could only say that he takes whatever is filled at his pharmacy [facility]. I added meds that were missing and called pharmacy (talked to pharmacist Radha) to check. He is no longer taking carvedilol. Nurse called pharmacy to discontinue med per pharmacist. Pharmacist also confirmed that patient is taking nifedipine ER 90 mg, not 60 mg.
--- NOTE | 2023-06-20 14:41 | P.DS_ITS ---
DS: Providers Provider Date of Service: 06/20/23 Date of admission: 06/19/23 20:09 Primary care physician: Jade Lewis MD Consults: 06/20/23 12:32 Consult to Thoracic Surgery Stat Consulting Provider: Rohith Valdes Reason for consultation: Large pleural effusion Has provider been notified: Yes DS: Diagnosis Discharge Diagnosis (1) Recurrent pleural effusion: Status: Acute (2) ESRD on dialysis: Status: Acute (3) Acute on chronic systolic and diastolic heart failure, NYHA class 3: Status: Acute DS: Summary Hospital Course Hospital Course: HPI: 68-year-old male with history of ESRD on HD MWF on kidney transplant list (Dr. Shea), insulin-dependent type 2 diabetes, hypertension, hyperlipidemia, ROBERT on CPAP, heart failure with reduced ejection fraction EF 35% and grade 2 diastolic dysfunction presented to the ED earlier today for evaluation of dyspnea that has been ongoing for 1 month. He states that he was in line for renal transplant but was found to have fluid on his lungs. He underwent thoracentesis during admission on 04/12. Pleural fluid analysis at that time largely unremarkable. Negative cytology. However, at dialysis today he was advised that he likely again has fluid on his lungs with recurrent dyspnea and was advised to come to the ED for further evaluation. While in the ED, patient quite hypertensive to 230/99 186/85 on admission following 1 in nitropaste, 10 mg hydralazine, and 20 mg IV Lasix. He was also hypoxic to 86% on room air briefly placed on 2 L supplemental O2. Chest x-ray performed showed interval development large right pleural effusion with mild associated compression atelectasis as well as left lower lobe atelectasis and/or pneumonia. Thoracen tesis was performed bedside with 1 L serosanguineous fluid collected. Patient reports he feels markedly improved following the thoracentesis and denies any ongoing dyspnea. He is also maintaining oximetry 95% on room air. He denies any fevers, chills, congestion, abdominal pain, nausea, vomiting, diarrhea, cough, persistent dyspnea, chest pain. Denies any known sick contacts. Hematology studies unremarkable. Creatinine 6.54, BUN 29, electrolyte levels normal. Initial troponin 46.9, repeat pending, BNP 627 (previously 2400). Repeat troponin, LDH, total protein pending. Last echo 04/11 showed moderately decreased LV systolic function with EF 35% and grade 2 diastolic dysfunction. There is moderately decreased right ventricular systolic function but no obvious valvular pathology. Mild pulmonary hypertension also present. Hospital course: # recurrent pleural effusion, unclear etiology, ?likely in the setting of ESRD and CHF. About 1000cc drained in the ER and 1000 cc fluid removed by IR during hospitalization. Patient with markedly improved symptoms after thoracentesis. States he feels at baseline. No complications after thoracentesis. Pleural fluid studies pending at the time of discharge. Cytology 04/12 pleural fluid negative for malignancy. Thoracic surgery was consulted during hospital course. Chest tube and sclerose for pleurodesis if pleural effusion recurs as per thoracic surgery. Patient is hemodynamically stable to discharged and maintaining normal oxygen saturation on room air prior to discharge. Status at Discharge Functional status at discharge: independent ambulation Overall status at discharge: patient is back to baseline Time Attestation Discharge Coordination Time (in mins): 32 Quality: Safe Use of Opioids Does Pt have an Active Cancer Diagnosis on the Problem List?: No Quality: Stroke Does the patient have a stroke diagnosis?: No Physical Exam Vital Signs: Vital Signs: Last Vital Signs Temp 98.4 F 06/20/23 07:17 Pulse 73 06/20/23 12:40 Resp 18 06/20/23 12:40 BP 150/86 H 06/20/23 12:40 Pulse Ox 96 06/20/23 12:40 O2 Del Method Room Air 06/20/23 12:40 O2 Flow Rate 2.0 06/20/23 07:17 BMI result Body Mass Index 29.6 Middle-aged male lying in bed in no distress Neck supple, no JVD Regular rate and rhythm, S1-S2 heard Regular breath sounds bilaterally, no wheezing or crackles appreciated Abdomen soft nontender, no guarding, no rigidity Patient is awake, alert and oriented to self, place, time and person ; no focal motor deficit Psych: Normal mood No pedal edema DS: Data Data Completed and Pending Completed studies during hospitalization [Text1]: Procedures Drainage of Right Pleural Cavity, Percutaneous Approach (04/10/23) Performance of Urinary Filtration, Intermittent, Less than 6 Hours Per Day (04/10/23) Labs on day of discharge: Laboratory Results - last 24 hr 06/19/23 06/19/23 06/19/23 16:01 19:23 20:03 WBC 8.2 RBC 4.88 Hgb 11.1 L Hct 36.1 L MCV 74.0 L MCH 22.7 L MCHC 30.7 L RDW 15.9 Plt Count 234 D MPV 10.3 Immature Gran % (Auto) 0.5 H Neut % (Auto) 71.8 Lymph % (Auto) 13.1 L [place] % (Auto) 10.0 Eos % (Auto) 4.2 H Baso % (Auto) 0.4 Lymph # (Auto) 1.1 L [place] # (Auto) 0.8 Eos # (Auto) 0.4 Baso # (Auto) 0.0 Abs Immat Gran (auto) 0.04 H Absolute Neuts (auto) 5.9 Absolute Nucleated RBC 0.030 H Nucleated RBC % (auto) 0.4 H PT 13.0 INR 1.1 Sodium 144 Potassium 3.9 Chloride 103 Carbon Dioxide 29 Anion Gap 16 BUN 29 H Creatinine 6.54 H* Estim Creat Clear Calc 10.1 Estimated GFR 9 POC Glucose Random Glucose 105 90 Calcium 9.6 D Total Bilirubin 0.5 AST 16 ALT 25 Alkaline Phosphatase 152 H Lactate Dehydrogenase 200 Troponin I High Sens 46.9 H 48.0 H B-Natriuretic Peptide 627 H Total Protein 7.9 7.3 Albumin 4.2 Lipase 32 Peritoneal WBC 0.475 Peritoneal RBC 0.069 Periton Neutrophils 12 Periton Lymphocytes 17 Peritoneal Monocytes 36 Peritoneal Eosinophils 4 Peritoneal Other Cells 31 Influenza Type A (PCR) NEGATIVE Influenza Type B (PCR) NEGATIVE RSV RNA Qual (PCR) NEGATIVE SARS-CoV-2 RNA (RT-PCR) NEGATIVE 06/19/23 06/20/23 06/20/23 21:42 05:31 07:23 WBC 8.0 RBC 4.51 L Hgb 10.2 L Hct 33.6 L MCV 74.5 L MCH 22.6 L MCHC 30.4 L RDW 15.7 Plt Count 208 MPV 10.9 Immature Gran % (Auto) 0.4 Neut % (Auto) 66.1 Lymph % (Auto) 17.8 L [place] % (Auto) 11.0 Eos % (Auto) 4.4 H Baso % (Auto) 0.3 Lymph # (Auto) 1.4 [place] # (Auto) 0.9 Eos # (Auto) 0.4 Baso # (Auto) 0.0 Abs Immat Gran (auto) 0.03 Absolute Neuts (auto) 5.3 Absolute Nucleated RBC 0.020 H Nucleated RBC % (auto) 0.3 H PT INR Sodium 143 Potassium 4.2 Chloride 104 Carbon Dioxide 26 Anion Gap 17 BUN 37 H Creatinine 7.89 H* Estim Creat Clear Calc 8.5 Estimated GFR 7 POC Glucose 80 76 Random Glucose 80 Calcium 8.9 D Total Bilirubin AST ALT Alkaline Phosphatase Lactate Dehydrogenase Troponin I High Sens B-Natriuretic Peptide Total Protein Albumin Lipase Peritoneal WBC Peritoneal RBC Periton Neutrophils Periton Lymphocytes Peritoneal Monocytes Peritoneal Eosinophils Peritoneal Other Cells Influenza Type A (PCR) Influenza Type B (PCR) RSV RNA Qual (PCR) SARS-CoV-2 RNA (RT-PCR) 06/20/23 12:00 WBC RBC Hgb Hct MCV MCH MCHC RDW Plt Count MPV Immature Gran % (Auto) Neut % (Auto) Lymph % (Auto) [place] % (Auto) Eos % (Auto) Baso % (Auto) Lymph # (Auto) [place] # (Auto) Eos # (Auto) Baso # (Auto) Abs Immat Gran (auto) Absolute Neuts (auto) Absolute Nucleated RBC Nucleated RBC % (auto) PT INR Sodium Potassium Chloride Carbon Dioxide Anion Gap BUN Creatinine Estim Creat Clear Calc Estimated GFR POC Glucose 75 Random Glucose Calcium Total Bilirubin AST ALT Alkaline Phosphatase Lactate Dehydrogenase Troponin I High Sens B-Natriuretic Peptide Total Protein Albumin Lipase Peritoneal WBC Peritoneal RBC Periton Neutrophils Periton Lymphocytes Peritoneal Monocytes Peritoneal Eosinophils Peritoneal Other Cells Influenza Type A (PCR) Influenza Type B (PCR) RSV RNA Qual (PCR) SARS-CoV-2 RNA (RT-PCR) Preliminary micro results at discharge 06/19/23 19:23 Routine Culture - Preliminary Thoracentesis Fluid No growth to date. Anaerobic Culture - Preliminary No growth to date. Imaging Chest x-ray: Radiologist's impression: ITS Impressions Chest X-Ray 06/19/23 15:46 IMPRESSION: 1. Interval development of large right pleural effusion with mild associated compression atelectasis since 04/18/2023. 2. Left lower lobe atelectasis and/or pneumonia. Chest X-Ray 06/19/23 19:15 IMPRESSION: The right pleural effusion is minimally smaller when compared with the prior chest radiograph. No pneumothorax. The remainder of the examination is unchanged. Discharge Plan Discharge Anticipated Discharge Date/Time: 06/20/23 14:50 Patient Disposition: Home, Self-Care Discharge Diagnosis: Recurrent pleural effusion Referrals: Debbie,Fern, MD [Primary Care Provider] - 1 Week Discharge Medications: Continued atorvastatin 40 mg tablet 40 mg PO DAILY ipratropium-albuterol 0.5 mg-3 mg(2.5 mg base)/3 mL solution for nebulization 3 ml INHALATION Q4H PRN (Reason: Wheezing) sennosides-docusate sodium [Senna-Time S] 8.6-50 mg tablet 1 tab PO DAILY PRN (Reason: Constipation) allopurinol 100 mg tablet 100 mg PO MOWEFR@1600 Rx Instructions: GIVE AFTER DIALYSIS carvedilol 3.125 mg tablet 3.125 mg PO BID Rx Instructions: administer with food furosemide 80 mg tablet 80 mg PO DAILY omeprazole 20 mg capsule,delayed release(DR/EC) 20 mg PO DAILY doxazosin 4 mg tablet 4 mg PO BEDTIME albuterol sulfate 90 mcg/actuation HFA aerosol inhaler 2 puff INHALATION Q4H PRN (Reason: Shortness Of Breath) insulin lispro 100 unit/mL insulin pen 6 unit subcut TID insulin glargine [Lantus Solostar U-100 Insulin] 100 unit/mL (3 mL) insulin pen 34 unit subcut BEDTIME Velphoro 500 mg tablet,chewable 500 mg PO TID Trelegy Ellipta 200-62.5-25 mcg blister with device 1 ea INHALATION DAILY aspirin 81 mg tablet,delayed release (DR/EC) 81 mg PO DAILY lisinopril 10 mg tablet 10 mg PO DAILY polyethylene glycol 3350 17 gram/dose powder 17 g PO DAILY PRN (Reason: constipation) pregabalin 75 mg capsule 75 mg PO DAILY nifedipine 90 mg tablet extended release 90 mg PO BID Discharge Orders: Discharge Order (Routine); Ordered 06/20/23 Ordered By: Ashli Junior Diet: Low salt diet Activity on Discharge: As tolerated Stand Alone Forms: Patient Portal Discharge page Print Language: Comoran Care Plan Goals: Follow-up with PCP within 1 week. Follow-up on pleural fluid studies Health Concerns: Recurrent pleural effusion Systolic heart failure ESRD Plan of Treatment: Chest tube and pleurodesis if pleural effusion recurs Assessment: As above
--- NOTE | 2023-06-20 15:36 | MHC.CM.PN ---
pt dcd home with resumption of serviues
--- NOTE | 2023-06-20 16:20 | PC.NURSE ---
[employer] called this RN requesting MD Junior to Clarify lab ordered. Notified of call back number and lab reference number.
[2023-06-20 16:25] LABS: Glucose, Whole Blood 176 mg/dL (60-115)
[2023-06-26 08:41] LABS: pH Peritoneal Fluid 7.5
[2023-06-26 08:43] LABS: Albumin Peritoneal Fluid 2.8
[2023-06-26 08:44] LABS: Total Protein Peritoneal Fluid 4.2
[2023-06-26 08:45] LABS: Glucose Peritoneal Fluid 121
[2023-06-26 08:46] LABS: LDH Peritoneal Fluid 197
[2023-06-26 08:47] LABS: Amylase Peritoneal Fluid 58
== END 2023-06-20 16:54 | disposition home health service (06) ==
LOC: HO.ED 19:26 → HO.EDOVER 20:20 → HO.S3 06-20 01:04
PROVIDERS: Physician Assistant; Physician Assistant Surgical; Admitting Provider Physician Assistant; Emergency Provider Emergency Medicine; Visit Provider Student in an Organized Health Care Education/Training Program
DX: J90 Pleural effusion, not elsewhere classified (principal); R07.1 Chest pain on breathing; E11.22 Type 2 diabetes mellitus with diabetic chronic kidney disease; I13.2 Hypertensive heart and chronic kidney disease with heart failure and with stage 5 chronic kidney disease, or end stage renal disease; I50.40 Unspecified combined systolic (congestive) and diastolic (congestive) heart failure; N18.6 End stage renal disease; Z99.2 Dependence on renal dialysis; R79.89 Other specified abnormal findings of blood chemistry; G47.33 Obstructive sleep apnea (adult) (pediatric); R06.02 Shortness of breath; Z79.4 Long term (current) use of insulin; Z11.52 Encounter for screening for COVID-19; Z20.828 Contact with and (suspected) exposure to other viral communicable diseases
CPT/HCPCS: 0241U; 32555; 36415; 71045; 71046; 80048; 80053; 82042; 82150; 82945; 82947; 83615; 83690; 83880; 83986; 84155; 84157; 84484; 85025; 85610; 87070; 87073; 87205; 88112; 88305; 89051; 93005; 94640; 96374; 96375; 99221; 99285; J0360; J1940

== ENCOUNTER → 2023-06-19 15:16 | Outpatient (BNV) | payer MEDICARE, MEDICAID, SELFPAY | PROVIDERS: Admitting Provider Physician Assistant; Emergency Provider Emergency Medicine; PCP Internal Medicine; Visit Provider Internal Medicine | DX: R94.31 Abnormal electrocardiogram [ECG] [EKG] (principal) | CPT/HCPCS: 93010 ==

== ENCOUNTER 2023-06-19 20:09 | Outpatient (BNV) | payer MEDICARE, MEDICAID, SELFPAY | END 2023-06-20 11:17 | PROVIDERS: Admitting Provider Physician Assistant; Emergency Provider Emergency Medicine; Visit Provider Physician Assistant Surgical | DX: J90 Pleural effusion, not elsewhere classified (principal) | CPT/HCPCS: 32555 ==

== ENCOUNTER → 2023-06-19 20:09 | Outpatient (BNV) | payer MEDICARE, MEDICAID, SELFPAY | PROVIDERS: Admitting Provider Physician Assistant; Emergency Provider Emergency Medicine; PCP Internal Medicine; Visit Provider Physician Assistant Surgical | DX: N18.6 End stage renal disease (principal); Z99.2 Dependence on renal dialysis; I50.43 Acute on chronic combined systolic (congestive) and diastolic (congestive) heart failure; J90 Pleural effusion, not elsewhere classified | CPT/HCPCS: 99223 ==

== ENCOUNTER → 2023-06-19 20:09 | Outpatient (BNV) | payer MEDICARE, MEDICAID, SELFPAY | PROVIDERS: Admitting Provider Physician Assistant; Emergency Provider Emergency Medicine; PCP Internal Medicine; Visit Provider Student in an Organized Health Care Education/Training Program | DX: N18.6 End stage renal disease (principal); Z99.2 Dependence on renal dialysis; I50.43 Acute on chronic combined systolic (congestive) and diastolic (congestive) heart failure; J90 Pleural effusion, not elsewhere classified | CPT/HCPCS: 99223; 99239 ==

== ENCOUNTER 2023-06-27 09:13 | Outpatient (AMB) | payer MEDICARE, MEDICAID, SELFPAY ==
--- NOTE | 2023-06-27 09:24 | MHC.OFFVIS ---
Vital Signs 06/27/23 09:33 Weight 172 lb 13.478 oz BP 176/76 H Blood Pressure Location Rt brachial Position Sitting Pulse 75 Intake Visit Reasons: Pleurx catheter consult Intake Note: Patient referred after ER visit on 06-19-23. Here for pleurx catheter consultation. Patient c/o: lung fluid build up. Denies shortness of breath. Cnc Programmer Required: No Accompanied by: son Nestor Marie Allergies No Known Allergies Allergy (Verified 06/27/23 09:30) HPI Comments Details: Patient presents with his son. I am familiar with him from a recent hospitalization for a recurrent right pleural effusion. He has had multiple thoracentesis in the past. He presents here for a PleurX catheter placement. He is a candidate for kidney transplant but needs to have this catheter placed 1st according to his son. Chart was reviewed and patient evaluated. Extensive past medical history. [facility] Medical History Restless leg syndrome Anemia ESRD (end stage renal disease) Occlusive thrombus Pulmonary edema Noncompliance with CPAP treatment ROBERT (obstructive sleep apnea) Type 2 diabetes mellitus Hyperlipidemia Hypertension A-V fistula ESRD on dialysis Falling Congestive heart disease Dialysis complication Family History Father No problems noted. Mother No problems noted. Social History Household Members: Family Household Members Other:: son Housing: Apartment Do you presently have visiting nurse or other home services: Yes Alcohol intake: never Comment: Pt refuses bed alarm Patient Tobacco Use Status: Former Tobacco user service: No Physical Exam Vital Signs: Last Vital Signs Pulse 75 06/27/23 09:33 BP 176/76 H 06/27/23 09:33 Chest Other: Decreased breath sounds right. Clear left. HS 1 in 2 GI Other: Soft, corpulent, benign Extrem Other: Left upper arm AV fistula Assessment & Plan Assessment & Plan (1) Recurrent pleural effusion: Code(s): J90 - Pleural effusion, not elsewhere classified Category: Surgical (2) Pleural effusion on right: Code(s): J90 - Pleural effusion, not elsewhere classified Category: Surgical Plan Risks, benefits, and alternatives of PleurX catheter placement in the right chest reviewed the patient and his son and included but not limited to bleeding, infection, occlusion, catheter migration, numbness, pain, scarring and the patient wishes to proceed. All questions answered. Arrangements were made for this.
[2023-06-27 09:33] VITALS: BP 176/76; PULSE 75
== END 2023-06-27 09:52 | disposition home or self-care (01) ==
PROVIDERS: Visit Provider Surgery
DX: J90 Pleural effusion, not elsewhere classified (principal)
CPT/HCPCS: 99215

== ENCOUNTER → 2023-06-27 09:13 | Outpatient (BNVA) | payer MEDICARE, MEDICAID, SELFPAY | PROVIDERS: Visit Provider Surgery | DX: J90 Pleural effusion, not elsewhere classified (principal); Z76.82 Awaiting organ transplant status | CPT/HCPCS: 99212 ==

== ENCOUNTER 2023-07-13 05:59 | Day surgery (SDC) | payer MEDICARE, MEDICAID, SELFPAY ==
--- NOTE | 2023-07-12 15:15 | MHC.SHP ---
Pre-Procedural Eval Section A - 24 Hr Update-Section A only Date of Service: 07/12/23 The patient is an INPATIENT: No Changes since office visit: No Cold of Flu in the past 2 weeks, No New Medical Problems, No Changes in Medication and No Patient answered all questions Section B - Complete if H&P > 30 days Chief Complaint: Pleural effusion, not elsewhere classified Allergies: Allergies Allergy/AdvReac Type Severity Reaction Status Date / Time No Known Allergies Allergy Verified 06/27/23 09:30 Plan I have reviewed the history and physical and performed a pertinent physical examination on my patient. No changes have occurred unless specified. Time Spent With Patient Time: Total time managing care of this patient today ____ minutes.
--- NOTE | ~2023-07-13 | XR_ITS ---
EXAMINATION: XR CHEST CLINICAL INFORMATION: Status post right Pleurx catheter placement COMPARISON: Chest radiograph 06/20/2023, CT chest 04/10/2023 TECHNIQUE: Frontal view of the chest was obtained. FINDINGS: A Pleurx catheter is present curled at the right lung base. A pneumothorax, probably ex vacuo, is present at the right lung base. Heart size remains enlarged. Patchy densities are seen at both lung bases, right greater than left. XR/XR chest 1V IMPRESSION: Pleurx catheter placed with right-sided pneumothorax ex vacuo.
--- NOTE | ~2023-07-13 | FL_ITS ---
EXAMINATION: XR FLUOROSCOPY WITH IMAGES CLINICAL INFORMATION: Pleurx catheter placement. COMPARISON: None available. TECHNIQUE: Fluoroscopy Supervised By: Dr. Rohith Valdes. Fluoroscopy Time: 6.2 seconds. Cumulative Dose: 3.70 mGy. DAP: No DAP on this machine. Images: 3. FINDINGS: Intraoperative fluoroscopy and spot films were performed during a procedure in the OR. A Pleurx catheter is seen overlying the lower thorax. The side is not labeled. Please see Dr. Rohith Valdes's report for complete details. FL/FL guidance in OR IMPRESSION: Intraoperative fluoroscopy and spot films were obtained. Please see Dr. Rohith Valdes's report for complete details.
[2023-07-13 06:13] VITALS: BMI 29.3
[2023-07-13 06:18] VITALS: BP 156/68; PULSE 78; RESP 16; TEMP 36.6; O2SAT 89
[2023-07-13 06:35] LABS: Glucose, Whole Blood 138 mg/dL (60-115)
[2023-07-13] MEDS: 0.9 % Sodium Chloride 1,000 ML 50 ML IVCONT (06:39)
[2023-07-13 06:56] LABS: Anion Gap 22 (12-20); Carbon Dioxide 24 mmol/L (22-29); Chloride 103 mmol/L (96-108); Potassium 4.5 mmol/L (3.3-5.1); Sodium 144 mmol/L (135-145)
--- NOTE | 2023-07-13 07:30 | HO.ANESPROP2 ---
Documented by User: Karmen Hudson NP 07/12/23 09:24 HPI - Anesthesia Eval Consult details Narrative: 68yo M for Right Pleurex Cath Placement Recurrent pleural effusion. Thoracentesis 04/2023 and 2 x 06/2023 during admit. No malignancy seen in cytology ESRD with HD on MWF NO IV/BP ON LEFT D/T AV FISTULA. Candidate for [place] [facility] [place] [facility] [place] Hospital course: # recurrent pleural effusion, unclear etiology, ?likely in the setting of ESRD and CHF. About 1000cc drained in the ER and 1000 cc fluid removed by IR during hospitalization. Patient with markedly improved symptoms after thoracentesis. States he feels at baseline. No complications after thoracentesis. Pleural fluid studies pending at the time of discharge. Cytology 04/12 pleural fluid negative for malignancy. Thoracic surgery was consulted during hospital course. Chest tube and sclerose for pleurodesis if pleural effusion recurs as per thoracic surgery. Patient is hemodynamically stable to discharged and maintaining normal oxygen saturation on room air prior to discharge. [facility] Active Problems Active Problems: All Active Problems Recurrent pleural effusion (Acute) Pleural effusion on right (Acute) Hyponatremia (Acute) Hypoxic respiratory failure (Acute) Hyperkalemia (Acute) ESRD (end stage renal disease) (Acute) ESRD on dialysis (Acute) Past Medical History Medical History (Updated 07/13/23 @ 06:10 by Melody Bailey RN) Arthritis Asthma Restless leg syndrome Acute on chronic systolic and diastolic heart failure, NYHA class 3 Anemia Occlusive thrombus Pulmonary edema ROBERT (obstructive sleep apnea) Type 2 diabetes mellitus Hyperlipidemia Hypertension A-V fistula ESRD on dialysis Falling Family History Family History Father No problems noted. Mother No problems noted. Surgical History Surgical History History of surgery H/O colonoscopy Social History Social History (Updated 07/11/23 @ 10:46 by Rena Vasques RN) Household Members: Family Household Members Other:: son Housing: Apartment Do you presently have visiting nurse or other home services: Yes Alcohol intake: never Comment: Pt refuses bed alarm Patient Tobacco Use Status: Former Tobacco user Quit Date: 30 yrs ago Tobacco use type: Cigarette Use of substances other than those prescribed or required for medical reasons: No Are you DNR?: No Advance Directives: No Advance Directives Information Provided: Yes service: No Meds Allergies Allergy/AdvReac Type Severity Reaction Status Date / Time No Known Allergies Allergy Verified 07/13/23 06:13 Home Medications ?Medication ?Instructions ?Recorded ?Confirmed ?Last Taken ?Type albuterol sulfate 90 mcg/actuation 2 puff inhalation Q4H PRN 04/19/22 07/11/23 Unknown History aerosol inhaler Shortness Of Breath allopurinol 100 mg tablet 100 mg PO MOWEFR@1600 04/19/22 07/11/23 04/18/22 History atorvastatin 40 mg tablet 40 mg PO DAILY 04/19/22 06/19/23 04/19/22 History carvedilol 3.125 mg tablet 3.125 mg PO BID 04/19/22 07/11/23 07/13/23 04:00 History doxazosin 4 mg tablet 4 mg PO BEDTIME 04/19/22 07/11/23 04/18/22 History furosemide 80 mg tablet 80 mg PO DAILY 04/19/22 07/11/23 04/19/22 History ipratropium 0.5 mg-albuterol 3 mg 3 ml inhalation Q4H PRN Wheezing 04/19/22 07/11/23 Unknown History (2.5 mg base)/3 mL nebulization soln omeprazole 20 mg capsule,delayed 20 mg PO DAILY 04/19/22 07/11/23 07/13/23 04:00 History release sennosides 8.6 mg-docusate sodium 1 tab PO DAILY PRN Constipation 04/19/22 07/11/23 04/19/22 History 50 mg tablet (Senna-Time S) fluticasone fur. 200 mcg-umeclid 1 ea inhalation DAILY 04/10/23 07/11/23 07/13/23 04:00 History 62.5 mcg-vilant 25 mcg inhalat.powder (Trelegy Ellipta) insulin glargine 100 unit/mL (3 34 unit subcut BEDTIME 04/10/23 07/11/23 Unknown History mL) subcutaneous pen (Lantus Solostar U-100 Insulin) insulin lispro 100 unit/mL 6 unit subcut TID 04/10/23 07/11/23 Unknown History subcutaneous pen sucroferric oxyhydroxide 500 mg 500 mg PO TID 04/10/23 07/11/23 Unknown History chewable tablet (Velphoro) aspirin 81 mg tablet,delayed 81 mg PO DAILY 06/20/23 07/11/23 07/12/23 History release lisinopril 10 mg tablet 10 mg PO DAILY 06/20/23 07/11/23 Unknown History nifedipine 90 mg tablet,extended 90 mg PO BID 06/20/23 07/11/23 07/13/23 04:00 History release polyethylene glycol 3350 17 17 g PO DAILY PRN constipation 06/20/23 07/11/23 Unknown History gram/dose oral powder pregabalin 75 mg capsule 75 mg PO DAILY 06/20/23 07/11/23 Unknown History Exam Height,Weight and Vital Signs: Weight 78.471 kg Pertinent Lab Results Pertinent Lab Results: Laboratory Tests 06/20/23 05:31 WBC 8.0 Hgb 10.2 L Hct 33.6 L Plt Count 208 Narrative Narrative: EKG 06/2023 Vent. Rate : 075 BPM Atrial Rate : 075 BPM P-R Int : 164 ms QRS Dur : 108 ms QT Int : 406 ms P-R-T Axes : 036 -34 070 degrees QTc Int : 453 ms Normal sinus rhythm Left axis deviation Minimal voltage criteria for LVH, may be normal variant ( James product ) Septal infarct , age undetermined Abnormal ECG When compared with ECG of 16-APR-2023 10:52, Nonspecific T wave abnormality now evident in Lateral leads ECHO 04/2023 Conclusions: - The left ventricular systolic function is moderately decreased. The calculated ejection fraction is 35% by biplane method. - Evidence suggests grade II (moderate) diastolic dysfunction. - There is moderately decreased right ventricular systolic function. - No obvious valvular pathology seen on this study. - Mild pulmonary hypertension is present. Assessment and Plan Assessment Anesthesia Assessment: Chart Reviewed Documented by User: Melody Joshi DO 07/13/23 07:34 [facility] Past Medical History Medical History (Updated 07/13/23 @ 06:10 by Melody Bailey RN) Arthritis Asthma Restless leg syndrome Acute on chronic systolic and diastolic heart failure, NYHA class 3 Anemia Occlusive thrombus Pulmonary edema ROBERT (obstructive sleep apnea) Type 2 diabetes mellitus Hyperlipidemia Hypertension A-V fistula ESRD on dialysis Falling Family History Family History Father No problems noted. Mother No problems noted. Family history of problems with anesthesia: No Surgical History Surgical History History of surgery H/O colonoscopy History of Problems with Anesthesia: No Social History Social History (Updated 07/11/23 @ 10:46 by Rena Vasques RN) Household Members: Family Household Members Other:: son Housing: Apartment Do you presently have visiting nurse or other home services: Yes Alcohol intake: never Comment: Pt refuses bed alarm Patient Tobacco Use Status: Former Tobacco user Quit Date: 30 yrs ago Tobacco use type: Cigarette Use of substances other than those prescribed or required for medical reasons: No Are you DNR?: No Advance Directives: No Advance Directives Information Provided: Yes service: No Meds Allergies Allergy/AdvReac Type Severity Reaction Status Date / Time No Known Allergies Allergy Verified 07/13/23 06:13 Home Medications ?Medication ?Instructions ?Recorded ?Confirmed ?Last Taken ?Type albuterol sulfate 90 mcg/actuation 2 puff inhalation Q4H PRN 04/19/22 07/11/23 Unknown History aerosol inhaler Shortness Of Breath allopurinol 100 mg tablet 100 mg PO MOWEFR@1600 04/19/22 07/11/23 04/18/22 History atorvastatin 40 mg tablet 40 mg PO DAILY 04/19/22 06/19/23 04/19/22 History carvedilol 3.125 mg tablet 3.125 mg PO BID 04/19/22 07/11/23 07/13/23 04:00 History doxazosin 4 mg tablet 4 mg PO BEDTIME 04/19/22 07/11/23 04/18/22 History furosemide 80 mg tablet 80 mg PO DAILY 04/19/22 07/11/23 04/19/22 History ipratropium 0.5 mg-albuterol 3 mg 3 ml inhalation Q4H PRN Wheezing 04/19/22 07/11/23 Unknown History (2.5 mg base)/3 mL nebulization soln omeprazole 20 mg capsule,delayed 20 mg PO DAILY 04/19/22 07/11/23 07/13/23 04:00 History release sennosides 8.6 mg-docusate sodium 1 tab PO DAILY PRN Constipation 04/19/22 07/11/23 04/19/22 History 50 mg tablet (Senna-Time S) fluticasone fur. 200 mcg-umeclid 1 ea inhalation DAILY 04/10/23 07/11/23 07/13/23 04:00 History 62.5 mcg-vilant 25 mcg inhalat.powder (Trelegy Ellipta) insulin glargine 100 unit/mL (3 34 unit subcut BEDTIME 04/10/23 07/11/23 Unknown History mL) subcutaneous pen (Lantus Solostar U-100 Insulin) insulin lispro 100 unit/mL 6 unit subcut TID 04/10/23 07/11/23 Unknown History subcutaneous pen sucroferric oxyhydroxide 500 mg 500 mg PO TID 04/10/23 07/11/23 Unknown History chewable tablet (Velphoro) aspirin 81 mg tablet,delayed 81 mg PO DAILY 06/20/23 07/11/23 07/12/23 History release lisinopril 10 mg tablet 10 mg PO DAILY 06/20/23 07/11/23 Unknown History nifedipine 90 mg tablet,extended 90 mg PO BID 06/20/23 07/11/23 07/13/23 04:00 History release polyethylene glycol 3350 17 17 g PO DAILY PRN constipation 06/20/23 07/11/23 Unknown History gram/dose oral powder pregabalin 75 mg capsule 75 mg PO DAILY 06/20/23 07/11/23 Unknown History Exam Exam Date and Time: July 13, [id number] Height,Weight and Vital Signs: Weight 78.471 kg Height 5 ft 4 in Weight 77.564 kg Vital Signs Temperature 97.9 F 07/13/23 06:18 Pulse Rate 78 07/13/23 06:18 Respiratory Rate 16 07/13/23 06:18 Blood Pressure 156/68 H 07/13/23 06:18 Pulse Oximetry 89 L 07/13/23 06:18 Oxygen Delivery Method Room Air 07/13/23 06:18 Temperature 97.9 F 07/13/23 06:18 Pulse Rate 78 07/13/23 06:18 Respiratory Rate 16 07/13/23 06:18 Blood Pressure 156/68 H 07/13/23 06:18 Pulse Oximetry 89 L 07/13/23 06:18 Oxygen Delivery Method Room Air 07/13/23 06:18 Airway Mallampati Class: II TM Dist: >3cm Neck ROM: Full Loose/Missing/Broken Teeth: Yes (a few missing teeth) Heart: S1S2 Lungs: CTAB Assessment and Plan Assessment Anesthesia Assessment: Anesthesia Plan Discussed and Chart Reviewed Final Anesthetic Review Family History of Problems with Anesthesia: No History of Problems with Anesthesia: No NPO: Yes ASA Class: IV Final Preanesthetic Review: No Changes in Pt Med Stat, Meds/Allgs Chart Reviewed, Consent Obtained/Reviewed and Anes Risks/Benef Reviewed Patient Risk: High Procedure Risk: Intermediate Anesthetic Plan Anesthetic Plan: MAC: and Agree w/ Assess. and Plan Disposition: Standard PACU
[2023-07-13 08:15] VITALS: BP 130/47; PULSE 66; RESP 16; TEMP 36.6; O2SAT 95
--- NOTE | 2023-07-13 08:21 | P.OP_ITS ---
Operative Note Operative Note Date of Service: 07/13/23 Narrative: Preoperative diagnosis: [] Recurrent right pleural effusion Postop diagnosis: [] The same Procedure [] right PleurX catheter placement with fluoroscopy Surgeon: [] Lucio Bottom Turning Lathe Tender: [] Type of Anesthesia: [] MAC Indication for surgery: [] Recurrent right pleural effusion status post multiple thoracentesis Findings: [] Patient was brought to the operating room, placed on operative table supine position, after adequate level of MAC anesthesia was induced along with 0.5% Marcaine/1% lidocaine local infiltration, patient was placed in left lateral decubitus position with the Right chest having been prepped and draped in usual sterile fashion. Using Seldinger technique, and a proximally 6th intercostal space anterior axillary line the pleural cavity was accessed and a wire advanced into the hemithorax. Dilating sheath was then placed over the wire and the wire retrieved. Pre tunneled PleurX catheter was then advanced over the dilating sheath and then hemithorax and inferiorly. Peel-away sheath w as removed without incident. Cuff was just proximal to the exit site of the skin. Chest cavity was drained by connecting PleurX catheter to suction and approximate 1500 cc of serosanguineous fluid was retrieved. Catheter was secured to the skin at the skin exit site using 2-0 nylon suture. Skin wounds were closed using interrupted inverted dermal 3-0 Vicryl sutures. Cap was placed on the PleurX catheter and secured. Kit dressings were applied along with Tegaderm. Sponge, needle, and instrument counts reported correct. Patient tolerated procedure well and emerged from anesthesia stable condition. EBL minimal. Portable chest x-ray recovery is pending.
[2023-07-13 08:30] VITALS: BP 134/48; PULSE 67; RESP 14; O2SAT 98
[2023-07-13 08:45] VITALS: BP 135/54; PULSE 70; RESP 14; O2SAT 96
[2023-07-13 09:00] VITALS: BP 142/44; PULSE 68; RESP 16; TEMP 36.4; O2SAT 91
--- NOTE | 2023-07-13 09:58 | HO.INF ---
CORTEX TO DR. MAST, AND KALEE GASTELUM REGARDING HOME CARE OF PLEUREX CATH AND SUPPLIES. ALSO A CALL TO DR. MAST'S OFFICE. AWAITING SOME INFORMATION TO TELL PATIENT.
--- NOTE | 2023-07-13 10:24 | HO.INF ---
ALANNA FROM SURGICAL DISCHARGE IS TO CALL PATIENT'S SON WITH FURTHER INFORMATION REGARDING SETTING UP VNA AND SUPPLIES WELL TEACHING. PATIENT DISCHARGED HOME.
== END 2023-07-13 10:26 | disposition home or self-care (01) ==
PROVIDERS: Nurse Practitioner; Visit Provider Surgery
PROC: (CPT 32550; principal; 2023-07-13 07:30)
DX: J90 Pleural effusion, not elsewhere classified (principal); E11.22 Type 2 diabetes mellitus with diabetic chronic kidney disease; I12.0 Hypertensive chronic kidney disease with stage 5 chronic kidney disease or end stage renal disease; I13.2 Hypertensive heart and chronic kidney disease with heart failure and with stage 5 chronic kidney disease, or end stage renal disease; I50.9 Heart failure, unspecified; N18.6 End stage renal disease; J81.1 Chronic pulmonary edema; Z99.2 Dependence on renal dialysis; Z79.4 Long term (current) use of insulin; G47.33 Obstructive sleep apnea (adult) (pediatric); Z87.891 Personal history of nicotine dependence; Z98.890 Other specified postprocedural states
CPT/HCPCS: 32550; 36415; 71045; 80051; 82947; C1729; J0690; J2250; J2371; J2704; J2795; J3010

== ENCOUNTER → 2023-07-13 05:59 | Outpatient (BNV) | payer MEDICARE, MEDICAID, SELFPAY | PROVIDERS: Visit Provider Surgery | DX: J90 Pleural effusion, not elsewhere classified (principal) | CPT/HCPCS: 32550 ==

== ENCOUNTER 2023-07-24 11:28 | Outpatient (AMB) | payer MEDICARE, MEDICAID, SELFPAY ==
--- NOTE | 2023-07-24 11:47 | A.OFFVIS_ITS ---
Intake Visit Reasons: S/P Pleurx cath placement Intake Note: Patient here s/p pleurx catheter placement. Reports incision healing well. Draining correctly. VNA 4-5x wk. Patient c/o: irritation with adhesive. Still taking rx pain meds as needed. SX: 07-13-23. 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 He has no PleurX catheter issues or complaints. Is being used every other day with good retrieval of pleural effusion. [facility] Medical History (Updated 07/13/23 @ 06:10 by Melody Bailey RN) Arthritis Asthma Restless leg syndrome Acute on chronic systolic and diastolic heart failure, NYHA class 3 Anemia Occlusive thrombus Pulmonary edema ROBERT (obstructive sleep apnea) Type 2 diabetes mellitus Hyperlipidemia Hypertension A-V fistula ESRD on dialysis Falling Surgical History (Updated 07/24/23 @ 11:48 by Rohith Valdes MD) Pleural effusion on right (07/13/23) History of surgery H/O colonoscopy Family History Father No problems noted. Mother No problems noted. Social History (Updated 07/11/23 @ 10:46 by Rena Vasques RN) Household Members: Family Household Members Other:: son Housing: Apartment Do you presently have visiting nurse or other home services: Yes Alcohol intake: never Comment: counts correct Patient Tobacco Use Status: Former Tobacco user Quit Date: 30 yrs ago Tobacco use type: Cigarette service: No Physical Exam Chest Other: PleurX catheter site clean dry and intact well healed with no evidence of any infection or wound issues Assessment & Plan Assessment & Plan (1) Postop check: Code(s): Z09 - Encounter for follow-up examination after completed treatment for conditions other than malignant neoplasm Category: Surgical Plan Patient and son have been given local instructions, and will follow-up with me p.r.n.. All questions answered. Coding Level of Care Code Global (92921) Diagnoses Postop check Z09
== END 2023-07-24 11:44 | disposition home or self-care (01) ==
PROVIDERS: Visit Provider Surgery
DX: Z46.82 Encounter for fitting and adjustment of non-vascular catheter (principal)
CPT/HCPCS: 99212

== ENCOUNTER → 2023-07-24 11:28 | Outpatient (BNVA) | payer MEDICAID, SELFPAY | PROVIDERS: Visit Provider Surgery | DX: Z46.82 Encounter for fitting and adjustment of non-vascular catheter (principal) | CPT/HCPCS: 99212 ==

== ENCOUNTER 2023-08-03 10:57 | Emergency (ER) | payer MEDICARE, MEDICAID, SELFPAY ==
[2023-08-03 12:09] VITALS: BP 144/66; PULSE 75; RESP 18; TEMP 37.1; O2SAT 93; BMI 29.6
--- NOTE | 2023-08-03 12:18 | ED_ITS ---
HPI - Animal Bite General Chief Complaint: Animal Bite Stated Complaint: r hand inj Time Seen by Provider: 08/03/23 12:25 Source: patient Mode of arrival: ambulatory Limitations: no limitations History of Present Illness ED Provider: Allan BARRIOS HPI narrative: 68-year-old male hx obesity, esrd. pleural effusions, dm presents with dog bite to left ring finger, despite occurred 2 months ago, dog was not vaccinated however they have been watching the dog for the past 2 months in the dog is okay acting normal, no illnesses. Patient unclear of status of tetanus shot. Patient reports he decided to come in today because his finger is more red, swollen and painful. He is a diabetic and he is concerned it may be infected. Denies fevers, chills, numbness, tingling, chest pain, shortness of breath, nausa, vomiting Related Data Home Medications ?Medication ?Instructions ?Recorded ?Confirmed albuterol sulfate 90 mcg/actuation 2 puff inhalation Q4H PRN 04/19/22 07/11/23 aerosol inhaler Shortness Of Breath allopurinol 100 mg tablet 100 mg PO MOWEFR@1600 04/19/22 07/11/23 atorvastatin 40 mg tablet 40 mg PO DAILY 04/19/22 06/19/23 carvedilol 3.125 mg tablet 3.125 mg PO BID 04/19/22 07/11/23 doxazosin 4 mg tablet 4 mg PO BEDTIME 04/19/22 07/11/23 furosemide 80 mg tablet 80 mg PO DAILY 04/19/22 07/11/23 ipratropium 0.5 mg-albuterol 3 mg 3 ml inhalation Q4H PRN Wheezing 04/19/22 07/11/23 (2.5 mg base)/3 mL nebulization soln omeprazole 20 mg capsule,delayed 20 mg PO DAILY 04/19/22 07/11/23 release sennosides 8.6 mg-docusate sodium 1 tab PO DAILY PRN Constipation 04/19/22 07/11/23 50 mg tablet (Senna-Time S) fluticasone fur. 200 mcg-umeclid 1 ea inhalation DAILY 04/10/23 07/11/23 62.5 mcg-vilant 25 mcg inhalat.powder (Trelegy Ellipta) insulin glargine 100 unit/mL (3 34 unit subcut BEDTIME 04/10/23 07/11/23 mL) subcutaneous pen (Lantus Solostar U-100 Insulin) insulin lispro 100 unit/mL 6 unit subcut TID 04/10/23 07/11/23 subcutaneous pen sucroferric oxyhydroxide 500 mg 500 mg PO TID 04/10/23 07/11/23 chewable tablet (Velphoro) aspirin 81 mg tablet,delayed 81 mg PO DAILY 06/20/23 07/11/23 release lisinopril 10 mg tablet 10 mg PO DAILY 06/20/23 07/11/23 nifedipine 90 mg tablet,extended 90 mg PO BID 06/20/23 07/11/23 release polyethylene glycol 3350 17 17 g PO DAILY PRN constipation 06/20/23 07/11/23 gram/dose oral powder pregabalin 75 mg capsule 75 mg PO DAILY 06/20/23 07/11/23 Previous Rx's ?Medication ?Instructions ?Recorded hydrocodone 5 mg-acetaminophen 325 1 tab PO Q4-6H PRN pain #20 tabs 07/13/23 mg tablet amoxicillin 875 mg-potassium 1 tab PO BID 7 days #14 tabs 08/03/23 clavulanate 125 mg tablet Allergies Allergy/AdvReac Type Severity Reaction Status Date / Time No Known Allergies Allergy Verified 08/03/23 12:12 Review of Systems Review of Systems: Yes all other systems are reviewed and are negative [facility] Past Medical History Attestation statement: The following information was validated with the patient. Source: old records reviewed and nursing notes reviewed Medical History Arthritis Asthma Restless leg syndrome Acute on chronic systolic and diastolic heart failure, NYHA class 3 Anemia Occlusive thrombus Pulmonary edema ROBERT (obstructive sleep apnea) Type 2 diabetes mellitus Hyperlipidemia Hypertension A-V fistula ESRD on dialysis Falling Surgical History Pleural effusion on right (07/13/23) History of surgery H/O colonoscopy Family History Family History Father No problems noted. Mother No problems noted. Social History Social History Household Members: Family Household Members Other:: son Housing: Apartment Do you presently have visiting nurse or other home services: Yes Alcohol intake: never Comment: counts correct Patient Tobacco Use Status: Former Tobacco user Tobacco use type: Cigarette Advance Directives: No service: No Physical Exam ED Vital Signs: Vital Signs - 24 hr 08/03/23 12:09 Temperature 98.8 F Pulse Rate 75 Respiratory Rate 18 Blood Pressure 144/66 H Pulse Oximetry 93 Oxygen Delivery Method Room Air BMI result Body Mass Index 29.6 vss Appearance: Alert.? Oriented X3.? No acute distress.? Head: Normocephalic, atraumatic, no step-offs or deformities Eyes: Pupils equal, round and reactive to light.? Neck: Normal inspection.? Neck supple.? CVS: Normal heart rate and rhythm.? Pulses normal.? Respiratory: No respiratory distress.? Breath sounds normal.? Abdomen: Soft and nontender.? Skin: Skin warm and dry.? Normal skin color.? Normal skin turgor.? + l ring finger sital aspect w/ a wound that appears to be infected errythema, swollen, ttp, and some dark colored skin ( dark purple) cap refil to all fingers < 2 seconds b/l. Noraml sensation distally. Full painless rom b/l. Extremities: No lower extremity edema.? No calf ttp. 5/5 strength to bilateral upper and lower extremities Back: No midline tenderness, no C-spine tenderness, full range of motion, no CVA tenderness bilaterally Neuro: Oriented X 3.? No motor deficit.? No sensory deficit. CN 2-12 intact Medications Administered Discontinued Medications Generic Name Dose Route Start Last Admin Trade Name Freq PRN Reason Stop Dose Admin Diphtheria/Tetanus/Acell Pertussis 0.5 ml 08/03/23 12:19 08/03/23 12:25 Diphth,Pertus(Acell),Tet Adult 0.5 Ml Syringe IM 08/03/23 12:20 0.5 ml .ONCE ONE Administration Medical Decision Making Medical Decision Making [facility] Narrative: 1235 68 yo m prsent w/ dog bite to left hand two months ago PE- Skin warm and dry.? Normal skin color.? Normal skin turgor.? + l ring finger sital aspect w/ a wound that appears to be infected errythema, swollen, ttp, and some dark colored skin ( dark purple) cap refil to all fingers < 2 seconds b/l. Noraml sensation distally. Full painless rom b/l. History and physical exam concerning for dog bite with subsequent infection. No signs of abscess. No signs of septic joint, neurovascular compromise or threat to limb. No signs of tetanus or rabies. Patient encounter with dog was 2 months ago. No indication for immunoglobulin and rabies vaccine. Plan at this time will give Boostrix shot. And discharge patient on antibiotics. Differential Diagnosis Differential Diagnoses: The differential diagnosis associated with the presentation includes History and physical exam concerning for dog bite with subsequent infection. No signs of abscess. No signs of septic joint, neurovascular compromise or threat to limb. No signs of tetanus or rabies. Patient encounter with dog was 2 months ago. No indication for immunoglobulin and rabies vaccine. Admission/Observation Consideration of admission/observation: Escalation of care including admission/observation considered No indication Prescription Management I considered prescription management with: Antibiotic Chronic Conditions Patient?s care impacted by: Diabetes and Other (obesity, esrd ) Critical Care Time Critical Care Time Critical Care Time: Yes Total Critical Care Time: 35 Attestation: I attest to this time spent taking care of the patient, obtaining history, physical, reviewing labs, imaging, speaking to my attending, specialist or hospitalist. Discharge Plan Discharge Clinical Impression: Bite by animal, Dog bite Patient Disposition: Home, Self-Care Instructions: Animal Bite (ED), Bone Bruise (ED) Additional Instructions: Take your medications as prescribed. If you were prescribed antibiotics today, it is important that you take your medication to their entirety, do not skip any doses, do not finish them early. Follow-up with your primary care provider this week. Return to the emergency department with new or worsening symptoms. Such as fevers, chills, chest pain, shortness of breath, nausea, vomiting, dizziness, headache, vision changes, lethargy In case of emergency call 911 Prescriptions: New amoxicillin-pot clavulanate 875-125 mg tablet 1 tab PO BID 7 Days Qty: 14 0RF No Action atorvastatin 40 mg tablet 40 mg PO DAILY ipratropium-albuterol 0.5 mg-3 mg(2.5 mg base)/3 mL solution for nebulization 3 ml INHALATION Q4H PRN (Reason: Wheezing) sennosides-docusate sodium [Senna-Time S] 8.6-50 mg tablet 1 tab PO DAILY PRN (Reason: Constipation) allopurinol 100 mg tablet 100 mg PO MOWEFR@1600 Rx Instructions: GIVE AFTER DIALYSIS carvedilol 3.125 mg tablet 3.125 mg PO BID Rx Instructions: administer with food furosemide 80 mg tablet 80 mg PO DAILY omeprazole 20 mg capsule,delayed release(DR/EC) 20 mg PO DAILY doxazosin 4 mg tablet 4 mg PO BEDTIME albuterol sulfate 90 mcg/actuation HFA aerosol inhaler 2 puff INHALATION Q4H PRN (Reason: Shortness Of Breath) hydrocodone-acetaminophen 5-325 mg tablet 1 tab PO Q4-6H PRN (Reason: pain) Qty: 20 0RF Rx Instructions: Partial Fill upon patient request. insulin lispro 100 unit/mL insulin pen 6 unit subcut TID insulin glargine [Lantus Solostar U-100 Insulin] 100 unit/mL (3 mL) insulin pen 34 unit subcut BEDTIME Velphoro 500 mg tablet,chewable 500 mg PO TID Trelegy Ellipta 200-62.5-25 mcg blister with device 1 ea INHALATION DAILY aspirin 81 mg tablet,delayed release (DR/EC) 81 mg PO DAILY lisinopril 10 mg tablet 10 mg PO DAILY polyethylene glycol 3350 17 gram/dose powder 17 g PO DAILY PRN (Reason: constipation) pregabalin 75 mg capsule 75 mg PO DAILY nifedipine 90 mg tablet extended release 90 mg PO BID Referrals: Physician,None [Primary Care Provider] - 2 days Interventions: ED Discharge Assessment Last Done: 08/03/23 12:38 Print Language: Mosotho
[2023-08-03] MEDS: Diphth,Pertus(ACell),Tet Adult 0.5 ML SYRINGE IM (12:25)
[2023-08-03 12:38] VITALS: BP 144/66; PULSE 75; RESP 18; TEMP 37.1; O2SAT 93
== END 2023-08-03 12:38 | disposition home or self-care (01) ==
PROVIDERS: Emergency Provider Emergency Medicine
DX: S61.255A Open bite of left ring finger without damage to nail, initial encounter (principal); E11.22 Type 2 diabetes mellitus with diabetic chronic kidney disease; I13.2 Hypertensive heart and chronic kidney disease with heart failure and with stage 5 chronic kidney disease, or end stage renal disease; I50.40 Unspecified combined systolic (congestive) and diastolic (congestive) heart failure; N18.6 End stage renal disease; Z99.2 Dependence on renal dialysis; W54.0XXA Bitten by dog, initial encounter; Y93.9 Activity, unspecified; Y92.9 Unspecified place or not applicable; Y99.9 Unspecified external cause status
CPT/HCPCS: 90471; 90715; 99282; 99284

== ENCOUNTER 2023-09-30 10:51 | Inpatient (IN) | payer MEDICARE, SELFPAY ==
--- NOTE | ~2023-09-30 | XR_ITS ---
EXAMINATION: XR CHEST CLINICAL INFORMATION: Pleural effusion after TPA installation COMPARISON: 10/01/2023 TECHNIQUE: 2 views of the chest were obtained. FINDINGS: Moderate right pleural effusion stable. This obscures detail of the right base. Atelectasis left base noted. Upper lungs clear. Moderate enlargement of the cardiac silhouette with left ventricular prominence. Pulmonary vessels are not distended. The right-sided central line is in stable position with its tip in the SVC. Previously noted right-sided chest tube, at the right base is stable in appearance. A vascular stent overlies the left axilla. No change. XR/XR chest 2V IMPRESSION: Stable moderate right-sided pleural effusion.
--- NOTE | ~2023-09-30 | XR_ITS ---
EXAMINATION: XR CHEST CLINICAL INFORMATION: Pleural effusion follow-up COMPARISON: Chest x-ray September 30, 2023 TECHNIQUE: 2 views of the chest were obtained. FINDINGS: Cardiac silhouette is again noted to be enlarged. Tunneled right-sided dialysis catheter is stable with catheter tip terminating within the distal SVC. Moderate right-sided pleural effusion is stable to mildly increased in size. Suspected Pleurx catheter projects over the right lung base. No left-sided pleural effusion. Similar patchy opacity of the lateral left midlung suggesting atelectasis. Vascular stents project over the left axilla. Mild degenerative changes of the spine. XR/XR chest 2V IMPRESSION: Moderate right-sided pleural effusion is stable to mildly increased in size. Suspected Pleurx catheter projects over the right lung base.
--- NOTE | ~2023-09-30 | CT_ITS ---
EXAMINATION: CT ABDOMEN AND PELVIS WITHOUT CONTRAST CLINICAL INFORMATION: Right flank pain COMPARISON: CT abdomen and pelvis 06/19/2022, CT chest 04/10/2023 TECHNIQUE: Multidetector volumetric imaging was performed from the superior aspect of the liver through the pubic symphysis. Sagittal and coronal reformatted images were obtained on the technologist's workstation. This CT examination was performed using dose optimization techniques as appropriate, variously including the following: *Automated exposure control *Adjustment of mA and/or kV according to patient size (this includes techniques or standardized protocols for targeted exams where dose is matched to indication/reason for exam; i.e. extremities or head) *Use of iterative reconstruction technique DLP: 621 mGy-cm FINDINGS: LUNG BASES: Coronary artery calcification is present. Heart is mildly enlarged, unchanged. Moderate pericardial effusion increased from prior CT chest. Compared to prior CT chest there has been decreased size of a moderate right pleural fluid collection with chest tube in place however which demonstrates new pleural thickening and stippled foci of gas throughout the fluid collection, raising the concern for the possibility of empyema, though the gas could be related to the underlying line, recommend correlation with drain output. There is right lower and right middle lobe volume loss with rounded subpleural consolidation favoring rounded atelectasis however continued attention on follow-up imaging. Patchy lingular atelectasis. Partially imaged central venous catheter terminating at the cavoatrial junction. ABDOMINAL AND PELVIC WALL: Mild gynecomastia. Small fat-containing umbilical hernia. LIVER AND BILIARY TREE: Subtle nodularity of the hepatic contour, recommend correlation with risk factors for cirrhosis. Liver is enlarged measuring 19.7 cm in span, previously 19.4 cm. GALLBLADDER: Previously seen gallstones are not definitively discerned on today's exam. PANCREAS: Unremarkable. SPLEEN: Unremarkable. ADRENAL GLANDS: Unremarkable. KIDNEYS AND URETERS: The renal arteries demonstrate extensive atherosclerotic vascular calcification which somewhat limits assessment for stone however within limitations no definite nephrolithiasis is identified. There is mild asymmetric right lower pole perinephric fat stranding and periureteral fat stranding, which can be seen in the setting of recently passed stone, or ascending urinary tract infection/pyelonephritis, though pyelonephritis would be difficult to confirm given lack of intravenous contrast. GASTROINTESTINAL TRACT: Colonic diverticulosis without evidence of diverticulitis. Normal appendix. VASCULAR: Advanced atherosclerotic vascular calcification. LYMPH NODES/PERITONEUM: No lymphadenopathy. FREE FLUID: None. BLADDER: Urinary bladder is thick-walled, though underdistended with mild infiltration of the perivesicular fat, recommend correlation with urinalysis and symptoms of cystitis.. PELVIC VISCERA: Prostate is mildly enlarged measuring 5.2 cm in transverse diameter. OSSEOUS STRUCTURES: Unremarkable. CT/CT abdomen pelvis wo IV con IMPRESSION: 1. Compared to prior CT chest there has been decreased size of a moderate right pleural fluid collection with chest tube in place however which demonstrates new pleural thickening and stippled foci of gas throughout the fluid collection, raising the concern for the possibility of empyema, though the gas could be related to the underlying line, recommend correlation with drain output. There is right lower and right middle lobe volume loss with rounded subpleural consolidation favoring rounded atelectasis however continued attention on follow-up imaging. 2. There is mild asymmetric right lower pole perinephric fat stranding and periureteral fat stranding, which can be seen in the setting of recently passed stone, or ascending urinary tract infection/pyelonephritis, though pyelonephritis would be difficult to confirm given lack of intravenous contrast. No definite nephrolithiasis is identified though extensive atherosclerotic vascular calcification limits assessment. 3. Urinary bladder is thick-walled, though underdistended with mild infiltration of the perivesicular fat, recommend correlation with urinalysis and symptoms of cystitis. 4. Moderate pericardial effusion increased from prior CT chest. 5. Subtle nodularity of the hepatic contour, recommend correlation with risk factors for cirrhosis. Liver is enlarged measuring 19.7 cm in span, previously 19.4 cm.
--- NOTE | ~2023-09-30 | XR_ITS ---
EXAMINATION: XR CHEST CLINICAL INFORMATION: Reason for Exam R sided pain COMPARISON: Chest radiograph 07/23/2023 TECHNIQUE: One view of the chest FINDINGS: Lines and tubes: Right large or central venous catheter tip overlies the cavoatrial junction. EKG leads overlie the patient. Left axillary vascular stent. Moderate right pleural effusion increased from prior and with right basilar consolidation. Streaky left midlung opacities favoring atelectasis. No pneumothorax. Unchanged cardiomediastinal silhouette. XR/XR chest 1V IMPRESSION: 1. Moderate right pleural effusion increased from prior and with right basilar consolidation which may reflect atelectasis in the setting of effusion. 2. Streaky left midlung opacities favoring atelectasis.
[2023-09-30 10:56] VITALS: BP 157/59; PULSE 74; RESP 18; TEMP 36.8; O2SAT 94; BMI 28.7
--- NOTE | 2023-09-30 11:01 | ED.ABDPAIN ---
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 He is worried he has another effusion. He denies fevers has chronic white sputum. He states they took off usual amount at HD yesterday. Effusion last time was about 2L negative cytology. Per records it was noted if effusion recurred to consider pleurodesis. He has no other complaints pain does go to flank. Has PleurX catheter and VNA yesterday tried to get fluid out but he states just a little came out. MD elicited complaint: other (R sided lung pain) Pertinent past history: other (R sided pleural effusion) Onset (ago): day(s) (few) Pain Consistency: constant Location: chest Severity: moderate Quality: aching and fullness Radiation: none Migration to: no migration Exacerbating factors: other (breathing) Relieving factors: nothing Context: history of similar episodes Associated symptoms: other (shortness of breath) Related Data Home Medications ?Medication ?Instructions ?Recorded ?Confirmed albuterol sulfate 90 mcg/actuation 2 puff inhalation Q4H PRN 04/19/22 07/11/23 aerosol inhaler Shortness Of Breath allopurinol 100 mg tablet 100 mg PO MOWEFR@1600 04/19/22 07/11/23 atorvastatin 40 mg tablet 40 mg PO DAILY 04/19/22 06/19/23 carvedilol 3.125 mg tablet 3.125 mg PO BID 04/19/22 07/11/23 doxazosin 4 mg tablet 4 mg PO BEDTIME 04/19/22 07/11/23 furosemide 80 mg tablet 80 mg PO DAILY 04/19/22 07/11/23 ipratropium 0.5 mg-albuterol 3 mg 3 ml inhalation Q4H PRN Wheezing 04/19/22 07/11/23 (2.5 mg base)/3 mL nebulization soln omeprazole 20 mg capsule,delayed 20 mg PO DAILY 04/19/22 07/11/23 release sennosides 8.6 mg-docusate sodium 1 tab PO DAILY PRN Constipation 04/19/22 07/11/23 50 mg tablet (Senna-Time S) fluticasone fur. 200 mcg-umeclid 1 ea inhalation DAILY 04/10/23 07/11/23 62.5 mcg-vilant 25 mcg inhalat.powder (Trelegy Ellipta) insulin glargine 100 unit/mL (3 34 unit subcut BEDTIME 04/10/23 07/11/23 mL) subcutaneous pen (Lantus Solostar U-100 Insulin) insulin lispro 100 unit/mL 6 unit subcut TID 04/10/23 07/11/23 subcutaneous pen sucroferric oxyhydroxide 500 mg 500 mg PO TID 04/10/23 07/11/23 chewable tablet (Velphoro) aspirin 81 mg tablet,delayed 81 mg PO DAILY 06/20/23 07/11/23 release lisinopril 10 mg tablet 10 mg PO DAILY 06/20/23 07/11/23 nifedipine 90 mg tablet,extended 90 mg PO BID 06/20/23 07/11/23 release polyethylene glycol 3350 17 17 g PO DAILY PRN constipation 06/20/23 07/11/23 gram/dose oral powder pregabalin 75 mg capsule 75 mg PO DAILY 06/20/23 07/11/23 Previous Rx's ?Medication ?Instructions ?Recorded hydrocodone 5 mg-acetaminophen 325 1 tab PO Q4-6H PRN pain #20 tabs 07/13/23 mg tablet amoxicillin 875 mg-potassium 1 tab PO BID 7 days #14 tabs 08/03/23 clavulanate 125 mg tablet Allergies Allergy/AdvReac Type Severity Reaction Status Date / Time No Known Allergies Allergy Verified 09/30/23 11:01 Review of Systems Review of Systems Constitutional : No Fever, No Chills ENT/Mouth : No sore throat, No Rhinorrhea, No Swallowing Difficulty Eyes: No Eye Pain, No Swelling, No Redness Cardiovascular : pos Chest Pain, positive SOB, No Orthopnea, no Edema Respiratory : pos Cough, No Sputum, No Wheezing, positive dyspnea Gastrointestinal : No Nausea, No Vomiting, No Diarrhea, No abdominal Pain, No Hematochezia, No Melena Genitourinary : No Dysuria, No Urinary Frequency, No Hematuria Musculoskeletal : No joint pain, No Myalgias Skin : No Skin Lesions, No rash Neuro : No Weakness, No Numbness, No Dizziness, No Headache Psych : No Anxiety/Panic, No Depression All other systems reviewed and are negative PMFSH Past Medical History Attestation statement: The following information was validated with the patient. Source: old records reviewed Medical History Arthritis Asthma Restless leg syndrome Acute on chronic systolic and diastolic heart failure, NYHA class 3 Anemia Occlusive thrombus Pulmonary edema ROBERT (obstructive sleep apnea) Type 2 diabetes mellitus Hyperlipidemia Hypertension A-V fistula ESRD on dialysis Falling Surgical History Pleural effusion on right (07/13/23) History of surgery H/O colonoscopy Family History Family History Father No problems noted. Mother No problems noted. Social History Social History Household Members: Family Household Members Other:: son Housing: Apartment Do you presently have visiting nurse or other home services: Yes Alcohol intake: never Comment: counts correct Patient Tobacco Use Status: Former Tobacco user Tobacco use type: Cigarette Smoked in Last 30 Days: No Use of substances other than those prescribed or required for medical reasons: No Advance Directives: No Do you have a plan to hurt others: No Plan service: No Physical Exam ED Vital Signs: Vital Signs - 24 hr 09/30/23 10:56 09/30/23 12:31 Temperature 98.2 F 98 F Pulse Rate 74 69 Respiratory Rate 18 18 Blood Pressure 157/59 H 136/48 L Pulse Oximetry 94 93 Oxygen Delivery Method Room Air Room Air BMI result Body Mass Index 28.7 Appearance: Alert. Oriented X3. No acute distress. Eyes: Pupils equal, round and reactive to light. ENT: Pharynx normal. Neck: Normal inspection. Neck supple. CVS: Normal heart rate and rhythm. Pulses normal. Chest: R permacath site c/d/i, R permacath site c/d/i Respiratory: No respiratory distress. Breath sounds diminished R lower lung Abdomen: Soft and nontender. Skin: Skin warm and dry. Normal skin color. Normal skin turgor. Extremities: No lower extremity edema. Neuro: Oriented X 3. No motor deficit. No sensory deficit. Course Course Course Narrative: 100cc ss fluid removed Medical Decision Making Medical Decision Making [facility] Narrative: 68 yo male with PMH of ESRD on HD MWF on transplant list, DM2 on insulin, HTN, HLD, ROBERT on CPAP, CHF EF 35%, hx of R pleural effusion s/p thoracentesis in May not on blood thinners who presents with c/o dyspnea R sided lung pain and diminished lung sounds concerning for recurrent pleural effusion - will obtain labs, EKG, CT scan for flank pain, CXR for effusion concerns - seems more consistent with effusion with diminished lung sounds vs VTE. Denies infectious symptoms. He reports appropriate amount of volume taken off yesterday and has no leg edema. If effusion recurred given lack of respiratory distress will discuss with thoracics about plan given they mentioned pleurodesis. He has pleurX in place and reports RN could not get much fluid out yesterday. Differential Diagnosis Differential Diagnoses: The differential diagnosis associated with the presentation includes CHF, effusion, stone has diminished lung sounds seems more fluid vs VTE Admission/Observation Consideration of admission/observation: Escalation of care including admission/observation considered admit for ECHO, further thoracic input did not drain fully 100cc ss fluid Lucio aware and states it is still draining no further reccs no signs of clinical tamponade Consult Healthcare Provider Management of the patient was discussed with: Hospitalist (will admit) and Youth Manager Lucio 1227pm 10cc saline infusion into pleurx catheter - try to drain effusion can get ECHO given increase in size Lab Data [facility] Lab Attestation statement: I reviewed the patient's lab results. 09/30/23 11:29 09/30/23 11:29 Labs: Lab Results 09/30/23 09/30/23 Range/Units 11:29 13:22 WBC 9.7 (4.8-10.8) X10*3/uL RBC 4.08 L (4.60-5.80) X10*6/uL Hgb 9.6 L (14.0-18.0) g/dl Hct 31.1 L (42.0-52.0) % MCV 76.2 L (80.0-98.0) fL MCH 23.5 L (27.0-33.0) pg MCHC 30.9 L (31.0-36.0) g/dl RDW 15.3 (11.0-16.0) % Plt Count 283 D (160-400) X10*3/uL MPV 11.3 (9.4-12.4) fL Immature Gran % (Auto) 0.4 (0.0-0.4) % Neut % (Auto) 77.4 H (45-73) % Lymph % (Auto) 11.2 L (20-40) % [place] % (Auto) 10.1 (2-11) % Eos % (Auto) 0.6 (0-4) % Baso % (Auto) 0.3 (0-2) % Lymph # (Auto) 1.1 L (1.2-4.9) X10*3/uL [place] # (Auto) 1.0 (0.1-1.2) X10*3/uL Eos # (Auto) 0.1 (0.0-0.4) X10*3/uL Baso # (Auto) 0.0 (0.0-0.2) X10*3/uL Abs Immat Gran (auto) 0.04 H (0.00-0.03) X10*3/uL Absolute Neuts (auto) 7.5 (2.0-8.3) x10*3/uL Absolute Nucleated RBC 0.000 (0.0-0.012) X10*3/uL Nucleated RBC % (auto) 0.0 (0.0-0.2) /100WBC PT 14.4 H (11.1-13.3) SEC INR 1.2 H (0.9-1.1) Sodium 142 (135-145) mmol/L Potassium 3.5 D (3.3-5.1) mmol/L Chloride 102 (96-108) mmol/L Carbon Dioxide 26 (22-29) mmol/L Anion Gap 18 (12-20) BUN 36 H (9-16) mg/dL Creatinine 6.84 H* (0.5-1.4) mg/dL Estim Creat Clear Calc 9.7 Estimated GFR 8 Random Glucose 157 H (60-115) mg/dL Calcium 9.8 D (8.4-10.2) mg/dL Magnesium 1.9 (1.6-2.6) mg/dL Total Bilirubin 0.4 (0.0-1.0) mg/dL Direct Bilirubin 0.2 (0.0-0.5) mg/dL AST 19 (5-37) U/L ALT 27 (0-40) U/L Alkaline Phosphatase 205 H (39-117) U/L Troponin I High Sens 97.0 H D 108.1 H* (<3.5-35.0) ng/L B-Natriuretic Peptide 2013 H (<100) pg/mL Total Protein 7.5 (6.5-8.0) g/dL Albumin 3.7 (3.5-5.0) g/dL Lipase 19 (8-78) U/L Independent Interpretation I performed an independent interpretation of an: EKG, Plain X-Ray (recurrent R sided effusion) and CT Scan (effusions) Interpretation: Rate: 70 Rhythm: NSR [place]: left Normal P waves. Normal FRANCES. Normal QRS complex. ST T wave : inverted t waves aVL, no LISA qTC: 442 prior studies: no acute ischemia The study has been interpreted contemporaneously by me. . Radiology Impression Discussion of test interpretation with radiology: I have reviewed the radiologist's reading. External Record Review External record reviewed: Inpatient record Medications Administered Discontinued Medications Generic Name Dose Route Start Last Admin Trade Name Freq PRN Reason Stop Dose Admin Oxycodone HCl 10 mg 09/30/23 12:50 09/30/23 13:01 Oxycodone Hcl Immed Release 5 Mg Tablet PO 09/30/23 12:51 10 mg ONCE ONE Administration Discharge Plan Discharge Clinical Impression: Pleural effusion on right, Chronic pericardial effusion, Elevated troponin Patient Disposition: Admitted As Inpatient Prescriptions: No Action atorvastatin 40 mg tablet 40 mg PO DAILY ipratropium-albuterol 0.5 mg-3 mg(2.5 mg base)/3 mL solution for nebulization 3 ml INHALATION Q4H PRN (Reason: Wheezing) sennosides-docusate sodium [Senna-Time S] 8.6-50 mg tablet 1 tab PO DAILY PRN (Reason: Constipation) allopurinol 100 mg tablet 100 mg PO MOWEFR@1600 Rx Instructions: GIVE AFTER DIALYSIS carvedilol 3.125 mg tablet 3.125 mg PO BID Rx Instructions: administer with food furosemide 80 mg tablet 80 mg PO DAILY omeprazole 20 mg capsule,delayed release(DR/EC) 20 mg PO DAILY doxazosin 4 mg tablet 4 mg PO BEDTIME albuterol sulfate 90 mcg/actuation HFA aerosol inhaler 2 puff INHALATION Q4H PRN (Reason: Shortness Of Breath) hydrocodone-acetaminophen 5-325 mg tablet 1 tab PO Q4-6H PRN (Reason: pain) Qty: 20 0RF Rx Instructions: Partial Fill upon patient request. insulin lispro 100 unit/mL insulin pen 6 unit subcut TID insulin glargine [Lantus Solostar U-100 Insulin] 100 unit/mL (3 mL) insulin pen 34 unit subcut BEDTIME Velphoro 500 mg tablet,chewable 500 mg PO TID Trelegy Ellipta 200-62.5-25 mcg blister with device 1 ea INHALATION DAILY aspirin 81 mg tablet,delayed release (DR/EC) 81 mg PO DAILY lisinopril 10 mg tablet 10 mg PO DAILY polyethylene glycol 3350 17 gram/dose powder 17 g PO DAILY PRN (Reason: constipation) pregabalin 75 mg capsule 75 mg PO DAILY nifedipine 90 mg tablet extended release 90 mg PO BID amoxicillin-pot clavulanate 875-125 mg tablet 1 tab PO BID 7 Days Qty: 14 0RF Print Language: Hebrew
--- NOTE | 2023-09-30 11:03 | ECG_ITS ---
Test Reason : DYSPNEA Blood Pressure : / mmHG Vent. Rate : 070 BPM Atrial Rate : 070 BPM P-R Int : 164 ms QRS Dur : 098 ms QT Int : 408 ms P-R-T Axes : 148 182 097 degrees QTc Int : 440 ms Suspect limb lead reversal, interpretation assumes no reversal Normal sinus rhythm Minimal voltage criteria for LVH, may be normal variant ( [place] product ) Lateral infarct , age undetermined Abnormal ECG When compared with ECG of 19-JUN-2023 15:28, Lateral infarct is now Present Referred By: Olga Alvarez Electronically Signed By:SHEEBA GRIFFITHS
[2023-09-30 11:37] LABS: MANUAL DIFF FLAG NO
--- NOTE | 2023-09-30 11:42 | ECG_ITS ---
Test Reason : DYSPNEA Blood Pressure : / mmHG Vent. Rate : 070 BPM Atrial Rate : 070 BPM P-R Int : 162 ms QRS Dur : 102 ms QT Int : 410 ms P-R-T Axes : 027 -05 091 degrees QTc Int : 442 ms Normal sinus rhythm Minimal voltage criteria for LVH, may be normal variant ( [place] product ) Nonspecific ST and T wave abnormality Abnormal ECG When compared with ECG of 30-SEP-2023 11:22, QRS axis Shifted right Referred By: Olga Alvarez Electronically Signed By:SHEEBA GRIFFITHS
[2023-09-30 11:49] LABS: Basophils Percent Auto 0.3 % (0-2); Eosinophils Absolute Auto 0.1 X10*3/uL (0.0-0.4); Eosinophils Percent Auto 0.6 % (0-4); Hematocrit 31.1 % (42.0-52.0); Hemoglobin 9.6 g/dl (14.0-18.0); Imm Gran Abs Auto 0.04 X10*3/uL (0.00-0.03); Imm Gran Pct Auto 0.4 % (0.0-0.4); Lymphocytes Absolute Auto 1.1 X10*3/uL (1.2-4.9); Lymphocytes Percent Auto 11.2 % (20-40); Mean Corpuscular HGB Conc 30.9 g/dl (31.0-36.0); Mean Corpuscular Hemoglobin 23.5 pg (27.0-33.0); Mean Corpuscular Volume 76.2 fL (80.0-98.0); Mean Platelet Volume 11.3 fL (9.4-12.4); Monocytes Percent Auto 10.1 % (2-11); Neutrophils Absolute Auto 7.5 x10*3/uL (2.0-8.3); Neutrophils Percent Auto 77.4 % (45-73); Platelet Count 283 X10*3/uL (160-400); Red Blood Count 4.08 X10*6/uL (4.60-5.80); Red Cell Distribution Width 15.3 % (11.0-16.0); White Blood Count 9.7 X10*3/uL (4.8-10.8)
--- NOTE | 2023-09-30 11:59 | PC.NURSE ---
pt a&ox3, iv inserted/labs drawn, ekg performed, pt has a non functioning LT AV Fistula-no bruit/thrill heard, rt chest cath intact- pt states he has dialysis m/w/f and had 2.5 kilos taken off yesterday, rt upper lung diminished, RLL absent, KANNAN exp wheezing, LLL clear/diminished. pt c/o 12/13 rt flank/back pain for 3 days, RT flank dressing from prior procedure intact, pt awaiting results of CT scan, call montilla within reach, will continue to monitor
[2023-09-30 12:07] LABS: INTERNATIONAL NORM RATIO 1.2 (0.9-1.1); Prothrombin Time 14.4 SEC (11.1-13.3)
[2023-09-30 12:10] LABS: Anion Gap 18 (12-20); Blood Urea Nitrogen 36 mg/dL (9-16); Carbon Dioxide 26 mmol/L (22-29); Chloride 102 mmol/L (96-108); Magnesium 1.9 mg/dL (1.6-2.6); Potassium 3.5 mmol/L (3.3-5.1); Sodium 142 mmol/L (135-145)
[2023-09-30 12:11] LABS: Alanine Aminotransferase 27 U/L (0-40); Albumin Level 3.7 g/dL (3.5-5.0); Alkaline Phosphatase 205 U/L (39-117); Aspartate Amino Transferase 19 U/L (5-37); Bilirubin Direct 0.2 mg/dL (0.0-0.5); Bilirubin Total 0.4 mg/dL (0.0-1.0); Calcium 9.8 mg/dL (8.4-10.2); Glucose Random 157 mg/dL (60-115); Lipase 19 U/L (8-78); Total Protein 7.5 g/dL (6.5-8.0)
[2023-09-30 12:12] LABS: Creatinine Clr Calc Pharmacy 9.7; Estimated Glomerular Filt Rate 8
[2023-09-30 12:14] LABS: B Type Natriuretic Peptide 2013 pg/mL (<100)
[2023-09-30 12:31] VITALS: BP 136/48; PULSE 69; RESP 18; TEMP 36.6; O2SAT 93
--- NOTE | 2023-09-30 12:48 | PC.NURSE ---
pts rt plurex accessed, 100 ml fluid drained. pt currently c/o 12/13 rt flank pain
[2023-09-30] MEDS: oxyCODONE HCl Immed Release 5 MG TABLET 10 MG PO (13:01)
--- NOTE | 2023-09-30 13:03 | PC.NURSE ---
pt medicated for rt flank pain, rr 22, 96% on room air, upper lungs diminished, RLL absent.
[2023-09-30 14:10] LABS: Troponin-I High Sensitivity 108.1 ng/L (<3.5-35.0)
[2023-09-30 14:39] VITALS: BP 156/69; PULSE 72; RESP 16; TEMP 36.6; O2SAT 93
--- NOTE | 2023-09-30 15:08 | PM.IMHP ---
History of Present Illness Date of Service: 09/30/23 Chief Complaint: Dyspnea, SOB A 68 years old male with PMH of ESRD on HD,insulin-dependent type 2 diabetes, HTN, HLD, ROBERT on CPAP, dCHF w EF 35% presented to the ED for evaluation of dyspnea and SOB for the last 3-4 days. The patient denies palpitations, fever, chills, cough, nausea, vomiting, diarrhea or urinary symptoms but reports dyspnea and orthopnea with decreased exercise tolerance. CXR showing increased right sided effusion. Pleurix cath in place but was only able to draine 100 cc of clear fluids. noticed to drop his O2 level to 80s while talking. to do walking O2 check while in ED. He will be admitted for further work up and treatment. Review of Systems Review of Systems: No fever, chills or weakness right sided chest pain, no palpitation reporting shortness of breath but no coughing No abdominal pain, nausea or vomiting No urinary symptoms PMFSH Medical History Arthritis Asthma Restless leg syndrome Acute on chronic systolic and diastolic heart failure, NYHA class 3 Anemia Occlusive thrombus Pulmonary edema ROBERT (obstructive sleep apnea) Type 2 diabetes mellitus Hyperlipidemia Hypertension A-V fistula ESRD on dialysis Falling Family History Father No problems noted. Mother No problems noted. Surgical History Pleural effusion on right (07/13/23) History of surgery H/O colonoscopy Social History Household Members: Family Household Members Other:: son Housing: Apartment Do you presently have visiting nurse or other home services: Yes Alcohol intake: never Comment: counts correct Patient Tobacco Use Status: Former Tobacco user Tobacco use type: Cigarette Smoked in Last 30 Days: No Use of substances other than those prescribed or required for medical reasons: No Advance Directives: No Do you have a plan to hurt others: No Plan service: No Meds Allergies Allergy/AdvReac Type Severity Reaction Status Date / Time No Known Allergies Allergy Verified 09/30/23 11:01 Active Medications: Current Medications Acetaminophen (Acetaminophen 325 Mg Tablet) 650 mg PO Q6H PRN PRN Reason: Pain, Mild (Pain Scale 1-3), fever or headache Benzonatate (Benzonatate 100 Mg Capsule) 100 mg PO TID PRN PRN Reason: Cough Calcium Carbonate (Calcium Carbonate 750 Mg Tab.Chew) 750 mg PO Q4H PRN PRN Reason: Heartburn Carvedilol (Carvedilol 3.125 Mg Tablet) 3.125 mg PO BID [facility]; Protocol Furosemide (Furosemide 40 Mg/4 Ml Vial) 80 mg IVPUSH ONCE ONE; Protocol Stop: 09/30/23 14:59 Heparin Sodium (Porcine) (Heparin Sodium,Porcine 5,000 Unit/Ml Vial) 5,000 unit SUBCUT Q12H [facility] Insulin Glargine (Insulin Glargine,Hum.Rec.Anlog 100 Unit/Ml 10 Ml Vial) 20 unit SUBCUT BEDTIME [place] Insulin Human Lispro (Insulin Lispro 100 Unit/Ml 3 Ml Vial) 0 unit SUBCUT QIDACHS [facility]; Protocol Magnesium Hydroxide (Milk Of Magnesia 30 Ml Oral.Susp) 30 ml PO DAILY PRN PRN Reason: Constipation Melatonin (Melatonin 3 Mg Tablet) 6 mg PO BEDTIME PRN PRN Reason: Insomnia Nifedipine (Nifedipine Er 30 Mg Tab.Er.24) 90 mg PO BID [facility]; Protocol Ondansetron HCl (Ondansetron Hcl 4 Mg/2 Ml Vial) 4 mg IVPUSH Q8H PRN PRN Reason: Nausea and Vomiting Oxycodone HCl (Oxycodone Hcl Immed Release 5 Mg Tablet) 5 mg PO Q6H PRN PRN Reason: Pain, Severe (Pain Scale 7-10) Sodium Chloride (0.9 % Sodium Chloride Flush 3 Ml Syringe) 3 ml IVFLUSH QSHIFT [facility] Home Medications ?Medication ?Instructions ?Recorded ?Confirmed ?Last Taken ?Type albuterol sulfate 90 mcg/actuation 2 puff inhalation Q4H PRN 04/19/22 07/11/23 Unknown History aerosol inhaler Shortness Of Breath allopurinol 100 mg tablet 100 mg PO MOWEFR@1600 04/19/22 07/11/23 04/18/22 History atorvastatin 40 mg tablet 40 mg PO DAILY 04/19/22 06/19/23 04/19/22 History carvedilol 3.125 mg tablet 3.125 mg PO BID 04/19/22 07/11/23 07/13/23 04:00 History doxazosin 4 mg tablet 4 mg PO BEDTIME 04/19/22 07/11/23 04/18/22 History furosemide 80 mg tablet 80 mg PO DAILY 04/19/22 07/11/23 04/19/22 History ipratropium 0.5 mg-albuterol 3 mg 3 ml inhalation Q4H PRN Wheezing 04/19/22 07/11/23 Unknown History (2.5 mg base)/3 mL nebulization soln omeprazole 20 mg capsule,delayed 20 mg PO DAILY 04/19/22 07/11/23 07/13/23 04:00 History release sennosides 8.6 mg-docusate sodium 1 tab PO DAILY PRN Constipation 04/19/22 07/11/23 04/19/22 History 50 mg tablet (Senna-Time S) fluticasone fur. 200 mcg-umeclid 1 ea inhalation DAILY 04/10/23 07/11/23 07/13/23 04:00 History 62.5 mcg-vilant 25 mcg inhalat.powder (Trelegy Ellipta) insulin glargine 100 unit/mL (3 34 unit subcut BEDTIME 04/10/23 07/11/23 Unknown History mL) subcutaneous pen (Lantus Solostar U-100 Insulin) insulin lispro 100 unit/mL 6 unit subcut TID 04/10/23 07/11/23 Unknown History subcutaneous pen sucroferric oxyhydroxide 500 mg 500 mg PO TID 04/10/23 07/11/23 Unknown History chewable tablet (Velphoro) aspirin 81 mg tablet,delayed 81 mg PO DAILY 06/20/23 07/11/23 07/12/23 History release lisinopril 10 mg tablet 10 mg PO DAILY 06/20/23 07/11/23 Unknown History nifedipine 90 mg tablet,extended 90 mg PO BID 06/20/23 07/11/23 07/13/23 04:00 History release polyethylene glycol 3350 17 17 g PO DAILY PRN constipation 06/20/23 07/11/23 Unknown History gram/dose oral powder pregabalin 75 mg capsule 75 mg PO DAILY 06/20/23 07/11/23 Unknown History Physical Exam Vital Signs and Narrative: Vital Signs: Last Vital Signs Temp 97.8 F 09/30/23 14:39 Pulse 72 09/30/23 14:39 Resp 16 09/30/23 14:39 BP 156/69 H 09/30/23 14:39 Pulse Ox 93 09/30/23 14:39 O2 Del Method Room Air 09/30/23 14:39 BMI result Body Mass Index 28.7 Const: Other: Constitutional : Awake, interactive, not in distress Neck : Normal inspection, Supple Cardiovascular : RRR, no JVP, no lower extremity edema Respiratory : decrease RLL air movement with dullness on percussion, no wheezes , O2 sat 88-92% on RA , later right chest wall Pleurix cath covered with dressing Gastrointestinal: soft, lax, Normal bowel sounds, Non tender Skin : Warm, Dry, Permmacath in place Neurological : Alert & oriented x3, No focal deficit Results Labs 09/30/23 11:29 09/30/23 11:29 Labs: Laboratory Results - last 24 hr 09/30/23 09/30/23 11:29 13:22 MCV 76.2 L MCH 23.5 L MCHC 30.9 L RDW 15.3 Plt Count 283 D MPV 11.3 Immature Gran % (Auto) 0.4 Neut % (Auto) 77.4 H Lymph % (Auto) 11.2 L [place] % (Auto) 10.1 Eos % (Auto) 0.6 Baso % (Auto) 0.3 Lymph # (Auto) 1.1 L [place] # (Auto) 1.0 Eos # (Auto) 0.1 Baso # (Auto) 0.0 Abs Immat Gran (auto) 0.04 H Absolute Neuts (auto) 7.5 Absolute Nucleated RBC 0.000 Nucleated RBC % (auto) 0.0 PT 14.4 H INR 1.2 H Anion Gap 18 Estim Creat Clear Calc 9.7 Estimated GFR 8 Random Glucose 157 H Calcium 9.8 D Magnesium 1.9 Total Bilirubin 0.4 Direct Bilirubin 0.2 AST 19 ALT 27 Alkaline Phosphatase 205 H Troponin I High Sens 97.0 H D 108.1 H* B-Natriuretic Peptide 2013 H Total Protein 7.5 Albumin 3.7 Lipase 19 Imaging Radiologist's Impressions: Impressions Abdomen/Pelvis CT 09/30/23 11:28 IMPRESSION: 1. Compared to prior CT chest there has been decreased size of a moderate right pleural fluid collection with chest tube in place however which demonstrates new pleural thickening and stippled foci of gas throughout the fluid collection, raising the concern for the possibility of empyema, though the gas could be related to the underlying line, recommend correlation with drain output. There is right lower and right middle lobe volume loss with rounded subpleural consolidation favoring rounded atelectasis however continued attention on follow-up imaging. 2. There is mild asymmetric right lower pole perinephric fat stranding and periureteral fat stranding, which can be seen in the setting of recently passed stone, or ascending urinary tract infection/pyelonephritis, though pyelonephritis would be difficult to confirm given lack of intravenous contrast. No definite nephrolithiasis is identified though extensive atherosclerotic vascular calcification limits assessment. 3. Urinary bladder is thick-walled, though underdistended with mild infiltration of the perivesicular fat, recommend correlation with urinalysis and symptoms of cystitis. 4. Moderate pericardial effusion increased from prior CT chest. 5. Subtle nodularity of the hepatic contour, recommend correlation with risk factors for cirrhosis. Liver is enlarged measuring 19.7 cm in span, previously 19.4 cm. Chest X-Ray 09/30/23 11:38 IMPRESSION: 1. Moderate right pleural effusion increased from prior and with right basilar consolidation which may reflect atelectasis in the setting of effusion. 2. Streaky left midlung opacities favoring atelectasis. Assessment and Plan (1) Chronic pericardial effusion: Status: Acute (2) Recurrent pleural effusion: Status: Acute (3) Pleural effusion on right: Status: Acute (4) Elevated troponin: Status: Acute Plan A 68 years old male with PMH of ESRD on HD,insulin-dependent type 2 diabetes, HTN, HLD, ROBERT on CPAP, sCHF w EF 35% presented to the ED for evaluation of dyspnea and SOB for the last 3-4 days. Right sided pleural effusion w Hx systolic CHF complicated by hypoxia chronic, worse than last CXR with new pericardial effusion Pleurix only drained 100cc of clear liquid to give Lasix IV Cardiology consult repeat Echo Use O2 as needed w goal of 90-94% Consider Thoracentesis by IR Thoracic surgery has no plans for intervention during this hospitalization Elevated Trop and BNP related to ESRD not NSTEMI ESRD on HD Nephrology to follow for MWF sessions HTN Continue home meds Hx sCHF Not in exacerbation Continue Lasix and carvedilol with Lisinopril DMII SSI, Lantus and diabetic diet ROBERT CPAP DVT PPx Heparin The patient will need 2 overnight hospital stay for treatment of hypoxia from effusion pending Cardiology and nephrology evaluations Quality Stroke Does the patient have a stroke diagnosis?: No VTE Prior VTE?: No VTE Risk Level:: Medical - moderate - high VTE Device Contraindication: Treatment Not Indicated VTE Drug Contraindication: N/A - Med Ordered
[2023-09-30 15:37] VITALS: BP 152/62; PULSE 69; RESP 16; TEMP 36.5; O2SAT 92
--- NOTE | 2023-09-30 15:40 | MHC.EDTECH ---
This pct assumed care of Patient at 1500 ,vitals taken ,Patient son at bedside .
--- NOTE | 2023-09-30 15:41 | MHC.EDTECH ---
Per Provider request ,Patient went for a walk while checking pulse ox ,Patient 02 sat started at 92 % and remain between 91 and 92 % while walking on room air .
--- NOTE | 2023-09-30 16:40 | PHA.MEDREC ---
Pharmacy Consult ? Medication Reconciliation Pharmacy has completed the medication reconciliation. Utilized steel floor pan placing supervisor services.
[2023-09-30] MEDS: Furosemide 40 MG/4 ML VIAL 80 MG IVPUSH (16:52)
[2023-09-30] MEDS: 0.9 % Sodium Chloride Flush 3 ML SYRINGE IVFLUSH ×2 (16:53→20:51)
[2023-09-30 17:01] VITALS: BMI 28.7
[2023-09-30 17:18] LABS: Glucose, Whole Blood 159 mg/dL (60-115)
[2023-09-30] MEDS: Insulin Lispro 100 UNIT/ML 3 ML VIAL SUBCUT ×2 (17:22→20:51)
[2023-09-30 20:25] LABS: Glucose, Whole Blood 225 mg/dL (60-115)
[2023-09-30 20:48] VITALS: BP 195/86; PULSE 73
[2023-09-30] MEDS: NIFEdipine ER 90 MG TAB.ER.24 PO (20:50)
[2023-09-30] MEDS: carvediloL 3.125 MG TABLET PO (20:50)
[2023-09-30] MEDS: Heparin Sodium,Porcine 5,000 UNIT/ML VIAL 5000 UNIT SUBCUT (20:51)
[2023-09-30] MEDS: Insulin Glargine,Hum.rec.anlog 100 UNIT/ML 10 ML VIAL 20 UNIT SUBCUT (20:51)
[2023-09-30 20:58] VITALS: BP 192/83; PULSE 76; RESP 18; TEMP 36.3; O2SAT 92
[2023-10-01] VITALS (8 sets, daily range): BP systolic 140–172; BP diastolic 58–92; PULSE 76–95; RESP 16–20; TEMP 36.3–37.2; O2SAT 88–98
[2023-10-01 06:18] LABS: MANUAL DIFF FLAG NO
[2023-10-01 06:48] LABS: Basophils Percent Auto 0.2 % (0-2); Eosinophils Absolute Auto 0.2 X10*3/uL (0.0-0.4); Eosinophils Percent Auto 1.6 % (0-4); Hematocrit 31.2 % (42.0-52.0); Hemoglobin 9.4 g/dl (14.0-18.0); Imm Gran Abs Auto 0.06 X10*3/uL (0.00-0.03); Imm Gran Pct Auto 0.6 % (0.0-0.4); Lymphocytes Absolute Auto 0.9 X10*3/uL (1.2-4.9); Lymphocytes Percent Auto 9.3 % (20-40); Mean Corpuscular HGB Conc 30.1 g/dl (31.0-36.0); Mean Corpuscular Hemoglobin 22.9 pg (27.0-33.0); Mean Corpuscular Volume 76.1 fL (80.0-98.0); Mean Platelet Volume 11.3 fL (9.4-12.4); Monocytes Absolute Auto 0.9 X10*3/uL (0.1-1.2); Monocytes Percent Auto 8.9 % (2-11); NRBC Pct Auto 0.2 /100WBC (0.0-0.2); Neutrophils Absolute Auto 8.1 x10*3/uL (2.0-8.3); Neutrophils Percent Auto 79.4 % (45-73); Platelet Count 291 X10*3/uL (160-400); White Blood Count 10.1 X10*3/uL (4.8-10.8)
[2023-10-01 07:30] LABS: Glucose, Whole Blood 62 mg/dL (60-115)
[2023-10-01 07:31] LABS: Anion Gap 20 (12-20); Blood Urea Nitrogen 47 mg/dL (9-16); Calcium 9.6 mg/dL (8.4-10.2); Carbon Dioxide 23 mmol/L (22-29); Chloride 102 mmol/L (96-108); Creatinine Clr Calc Pharmacy 8.3; Estimated Glomerular Filt Rate 7; Glucose Random 67 mg/dL (60-115); Potassium 4.4 mmol/L (3.3-5.1); Sodium 141 mmol/L (135-145)
[2023-10-01] MEDS: Albuterol Sulfate 90 MCG 8 GM INHALER 2 PUFF INHALE (09:28)
[2023-10-01] MEDS: Furosemide 40 MG TABLET 80 MG PO (09:28)
[2023-10-01] MEDS: NIFEdipine ER 90 MG TAB.ER.24 PO ×2 (09:29→20:31)
[2023-10-01] MEDS: Aspirin Enteric Coated 81 MG TABLET.DR PO (09:29)
[2023-10-01] MEDS: Heparin Sodium,Porcine 5,000 UNIT/ML VIAL 5000 UNIT SUBCUT (09:29)
[2023-10-01] MEDS: Atorvastatin Calcium 40 MG TABLET PO (09:29)
[2023-10-01] MEDS: carvediloL 3.125 MG TABLET PO (09:29)
[2023-10-01] MEDS: hydrALAZINE HCl 50 MG TABLET PO ×3 (09:29→20:32)
[2023-10-01] MEDS: 0.9 % Sodium Chloride Flush 3 ML SYRINGE IVFLUSH ×2 (09:30→16:08)
[2023-10-01] MEDS: Fluticasone/Umeclidinium/Vilanterol 200/62.5/25 BLST.W.DEV 1 PUFF INHALE (09:47)
[2023-10-01] MEDS: cefTRIAXone sodium 1 GM in 0.9 % Sodium Chloride 50 ML IV (09:47)
--- NOTE | 2023-10-01 09:53 | P.CONCA_ITS ---
History of Present Illness History of Present Illness Date of Service: 10/01/23 Chief complaint: Hypoxia, chest pain Narrative: This is a cardiology consultation regarding shortness of breath and known history of cardiomyopathy. Patient has history of ESRD on hemodialysis. He also has cardiomyopathy with an ejection fraction in the 30s. It seems he has a history of right pleural effusion for which she has had thoracentesis and currently has a PleurX catheter. Current admissions because of chest pain on the site of PleurX catheter and additionally, shortness of breath. According to patient, he has had the shortness of breath off and on for a while. The chest pain is primarily around the site of the PleurX catheter. With regard to the dialysis, patient relates that they are not taking enough fluid out but not entirely clear about that part. Discussed with patient in detail using internet ecommerce specialist. Review of Systems 2 Review of Systems: Yes all other systems are reviewed and are negative Constitutional: Constitutional: Reports as per HPI and Reports no additional constitutional complaints Eyes: Eyes: Reports as per HPI and Denies no additional eye complaints ENT: Denies system reviewed and no additional complaints, except as documented and Reports as per HPI Cardiovascular: Cardiovascular: Reports as per HPI, Reports no additional cardiovascular complaints, Denies acrocyanosis, Denies cool extremities, Reports chest pain, Denies leg edema, Denies lightheadedness, Denies palpitations and Reports dyspnea Respiratory: Respiratory: Reports as per HPI, Denies no additional respiratory complaints and Reports dyspnea Gastrointestinal: Gastrointestinal: Reports as per HPI and Denies no additional gastrointestinal complaints Genitourinary: Genitourinary: Reports no additional male genitourinary complaints and Reports as per HPI Musculoskeletal: Musculoskeletal: Reports no additional musculoskeletal complaints and Reports as per HPI Integumentary/Breasts: Skin/Breast: Reports system reviewed and no additional complaints, except as docu Neurologic: Reports system reviewed and no additional complaints, except as documented and Reports as per HPI Psychiatric: Psychiatric: Reports no additional psychiatric complaints and Reports as per HPI Endocrine: Endocrine: Reports no additional endocrine complaints, Reports as per HPI and Denies palpitations Hematologic/Lymphatic: Hematologic/Lymphatic: Reports no additional hematologic/lymphatic complaints and Reports as per HPI Allergic/Immunologic: Allergic/Immunologic: Reports no additional allergic/immunologic complaints and Reports as per HPI [facility] Past Medical History Medical History Arthritis Asthma Restless leg syndrome Acute on chronic systolic and diastolic heart failure, NYHA class 3 Anemia Occlusive thrombus Pulmonary edema ROBERT (obstructive sleep apnea) Type 2 diabetes mellitus Hyperlipidemia Hypertension A-V fistula ESRD on dialysis Falling Family History Family History Father No problems noted. Mother No problems noted. Surgical History Surgical History Pleural effusion on right (07/13/23) History of surgery H/O colonoscopy Social History Social History Household Members: Children Household Members Other:: son Housing: Apartment Do you presently have visiting nurse or other home services: No Alcohol intake: never Comment: counts correct Patient Tobacco Use Status: Former Tobacco user Tobacco use type: Cigarette service: No Meds Allergies Allergy/AdvReac Type Severity Reaction Status Date / Time No Known Allergies Allergy Verified 09/30/23 11:01 Active Medications: Current Medications Acetaminophen (Acetaminophen 325 Mg Tablet) 650 mg PO Q6H PRN PRN Reason: Pain, Mild (Pain Scale 1-3), fever or headache Albuterol Sulfate (Albuterol Sulfate 90 Mcg 8 Gm Inhaler) 2 puff INHALE Q4H PRN PRN Reason: Shortness Of Breath Last Admin: 10/01/23 09:28 Dose: 2 puff Albuterol/Ipratropium (Albuterol/Iprat 2.5/0.5mg 3 Ml Ampul.Neb) 3 ml INHALE Q4H PRN PRN Reason: Wheezing Allopurinol (Allopurinol 100 Mg Tablet) 100 mg PO MOWEFR@1600 [facility] Aspirin (Aspirin Enteric Coated 81 Mg Tablet.) 81 mg PO DAILY [facility] Last Admin: 10/01/23 09:29 Dose: 81 mg Atorvastatin Calcium (Atorvastatin Calcium 40 Mg Tablet) 40 mg PO DAILY [facility] Last Admin: 10/01/23 09:29 Dose: 40 mg Benzonatate (Benzonatate 100 Mg Capsule) 100 mg PO TID PRN PRN Reason: Cough Calcium Carbonate (Calcium Carbonate 750 Mg Tab.Chew) 750 mg PO Q4H PRN PRN Reason: Heartburn Carvedilol (Carvedilol 3.125 Mg Tablet) 3.125 mg PO BID [facility]; Protocol Last Admin: 10/01/23 09:29 Dose: 3.125 mg Doxazosin Mesylate (Doxazosin Mesylate 2 Mg Tablet) 4 mg PO BEDTIME [facility]; Protocol Doxycycline Monohydrate (Doxycycline Monohydrate 100 Mg Capsule) 100 mg PO Q12H [facility] Fluticasone/Umeclidinium/Vilanterol (Fluticasone/Umeclidinium/Vilanterol 200/62.5/25 Blst.W.Dev) 1 puff INHALE RDAILY [facility] Last Admin: 10/01/23 09:47 Dose: 1 puff Furosemide (Furosemide 40 Mg Tablet) 80 mg PO DAILY [facility]; Protocol Last Admin: 10/01/23 09:28 Dose: 80 mg Heparin Sodium (Porcine) (Heparin Sodium,Porcine 5,000 Unit/Ml Vial) 5,000 unit SUBCUT Q12H [facility] Last Admin: 10/01/23 09:29 Dose: 5,000 unit Hydralazine HCl (Hydralazine Hcl 50 Mg Tablet) 50 mg PO TID [facility]; Protocol Last Admin: 10/01/23 09:29 Dose: 50 mg Ceftriaxone Sodium 1 gm/ (Sodium Chloride) 50 mls @ 100 mls/hr IV Q24H [facility] Last Admin: 10/01/23 09:47 Dose: 100 mls/hr Insulin Glargine (Insulin Glargine,Hum.Rec.Anlog 100 Unit/Ml 10 Ml Vial) 20 unit SUBCUT BEDTIME [facility] Last Admin: 09/30/23 20:51 Dose: 20 unit Insulin Human Lispro (Insulin Lispro 100 Unit/Ml 3 Ml Vial) 0 unit SUBCUT QIDACHS [facility]; Protocol Last Admin: 10/01/23 07:33 Dose: Not Given Magnesium Hydroxide (Milk Of Magnesia 30 Ml Oral.Susp) 30 ml PO DAILY PRN PRN Reason: Constipation Melatonin (Melatonin 3 Mg Tablet) 6 mg PO BEDTIME PRN PRN Reason: Insomnia Nifedipine (Nifedipine Er 90 Mg Tab.Er.24) 90 mg PO BID [facility]; Protocol Last Admin: 10/01/23 09:29 Dose: 90 mg Omeprazole (Omeprazole 20 Mg Capsule.Dr) 20 mg PO DAILY@0630 [facility] Ondansetron HCl (Ondansetron Hcl 4 Mg/2 Ml Vial) 4 mg IVPUSH Q8H PRN PRN Reason: Nausea and Vomiting Oxycodone HCl (Oxycodone Hcl Immed Release 5 Mg Tablet) 5 mg PO Q6H PRN PRN Reason: Pain, Severe (Pain Scale 7-10) Polyethylene Glycol (Polyethylene Glycol 3350 17 Gm Powd.Pack) 17 gm PO DAILY PRN PRN Reason: constipation Pregabalin (Pregabalin 75 Mg Capsule) 75 mg PO DAILY [facility] Senna/Docusate Sodium (Sennosides/Docusate Sodium Tablet) 1 tab PO DAILY PRN PRN Reason: Constipation Sodium Chloride (0.9 % Sodium Chloride Flush 3 Ml Syringe) 3 ml IVFLUSH QSHIFT [facility] Last Admin: 10/01/23 09:30 Dose: 3 ml Home Medications ?Medication ?Instructions ?Recorded ?Confirmed ?Last Taken ?Type albuterol sulfate 90 mcg/actuation 2 puff inhalation Q4H PRN 04/19/22 09/30/23 Unknown History aerosol inhaler Shortness Of Breath allopurinol 100 mg tablet 100 mg PO MOWEFR@1600 04/19/22 09/30/23 04/18/22 History atorvastatin 40 mg tablet 40 mg PO DAILY 04/19/22 09/30/23 09/30/23 09:00 History doxazosin 4 mg tablet 4 mg PO BEDTIME 04/19/22 09/30/23 04/18/22 History furosemide 80 mg tablet 80 mg PO DAILY 04/19/22 09/30/23 09/30/23 09:00 History ipratropium 0.5 mg-albuterol 3 mg 3 ml inhalation Q4H PRN Wheezing 04/19/22 09/30/23 Unknown History (2.5 mg base)/3 mL nebulization soln omeprazole 20 mg capsule,delayed 20 mg PO DAILY@0630 04/19/22 09/30/23 09/30/23 09:00 History release sennosides 8.6 mg-docusate sodium 1 tab PO DAILY PRN Constipation 04/19/22 09/30/23 04/19/22 History 50 mg tablet (Senna-Time S) insulin glargine 100 unit/mL (3 22 unit subcut BEDTIME 04/10/23 09/30/23 Unknown History mL) subcutaneous pen (Lantus Solostar U-100 Insulin) insulin lispro 100 unit/mL 1 sliding scale dose subcut TIDAC 04/10/23 09/30/23 09/30/23 09:00 History subcutaneous pen aspirin 81 mg tablet,delayed 81 mg PO DAILY 06/20/23 09/30/23 09/30/23 09:00 History release lisinopril 10 mg tablet 10 mg PO DAILY 06/20/23 09/30/23 09/30/23 09:00 History nifedipine 90 mg tablet,extended 90 mg PO BID 06/20/23 09/30/23 09/30/23 09:00 History release polyethylene glycol 3350 17 17 g PO DAILY PRN constipation 06/20/23 09/30/23 Unknown History gram/dose oral powder pregabalin 75 mg capsule 75 mg PO DAILY 06/20/23 09/30/23 09/30/23 09:00 History fluticasone fur. 200 mcg-umeclid 1 ea inhalation DAILY 09/30/23 09/30/23 09/30/23 09:00 History 62.5 mcg-vilant 25 mcg inhalat.powder (Trelegy Ellipta) hydralazine 50 mg tablet 50 mg PO TID 09/30/23 09/30/23 09/30/23 09:00 History Physical Exam 2 Vital Signs: Vital Signs: Last Vital Signs Temp 97.9 F 10/01/23 07:02 Pulse 80 10/01/23 07:02 Resp 18 10/01/23 07:02 BP 170/72 H 10/01/23 07:35 Pulse Ox 92 10/01/23 07:02 O2 Del Method Room Air 10/01/23 07:02 BMI result Body Mass Index 28.7 Const: General: comfortable and no acute distress O rientation/consciousness: patient oriented x3 HEENT: Other: Unremarkable Head: Yes normal to inspection Neck: Neck: Yes normal visual inspection Chest: Chest palpation & inspection: normal inspection of the chest Resp: Other: some rhonchi left side Cardio: Palpation: normal PMI Heart sounds: S1 normal heart sound present, S2 normal heart sound present, no gallops, no murmurs and no rubs GI: Palpation (GI): Soft to palpation Back/Spine/Pelvis: Other: unremarkable Skin: General skin exam: no rashes or lesions noted Neuro: General: patient oriented x3 Extrem: General: Yes normal to inspection Psych: Mental Status: mental status grossly normal Objective Labs and Meds 10/01/23 05:35 10/01/23 05:35 Lab results: Laboratory Results - last 24 hr 09/30/23 09/30/23 09/30/23 11:29 13:22 17:15 WBC 9.7 RBC 4.08 L Hgb 9.6 L Hct 31.1 L MCV 76.2 L MCH 23.5 L MCHC 30.9 L RDW 15.3 Plt Count 283 D MPV 11.3 Immature Gran % (Auto) 0.4 Neut % (Auto) 77.4 H Lymph % (Auto) 11.2 L [place] % (Auto) 10.1 Eos % (Auto) 0.6 Baso % (Auto) 0.3 Lymph # (Auto) 1.1 L [place] # (Auto) 1.0 Eos # (Auto) 0.1 Baso # (Auto) 0.0 Abs Immat Gran (auto) 0.04 H Absolute Neuts (auto) 7.5 Absolute Nucleated RBC 0.000 Nucleated RBC % (auto) 0.0 PT 14.4 H INR 1.2 H Sodium 142 Potassium 3.5 D Chloride 102 Carbon Dioxide 26 Anion Gap 18 BUN 36 H Creatinine 6.84 H* Estim Creat Clear Calc 9.7 Estimated GFR 8 POC Glucose 159 H Random Glucose 157 H Calcium 9.8 D Magnesium 1.9 Total Bilirubin 0.4 Direct Bilirubin 0.2 AST 19 ALT 27 Alkaline Phosphatase 205 H Troponin I High Sens 97.0 H D 108.1 H* B-Natriuretic Peptide 2013 H Total Protein 7.5 Albumin 3.7 Lipase 19 09/30/23 10/01/23 10/01/23 20:20 05:35 07:27 WBC 10.1 RBC 4.10 L Hgb 9.4 L Hct 31.2 L MCV 76.1 L MCH 22.9 L MCHC 30.1 L RDW 15.0 Plt Count 291 MPV 11.3 Immature Gran % (Auto) 0.6 H Neut % (Auto) 79.4 H Lymph % (Auto) 9.3 L [place] % (Auto) 8.9 Eos % (Auto) 1.6 Baso % (Auto) 0.2 Lymph # (Auto) 0.9 L [place] # (Auto) 0.9 Eos # (Auto) 0.2 Baso # (Auto) 0.0 Abs Immat Gran (auto) 0.06 H Absolute Neuts (auto) 8.1 Absolute Nucleated RBC 0.020 H Nucleated RBC % (auto) 0.2 PT INR Sodium 141 Potassium 4.4 D Chloride 102 Carbon Dioxide 23 Anion Gap 20 BUN 47 H Creatinine 8.02 H* Estim Creat Clear Calc 8.3 Estimated GFR 7 POC Glucose 225 H 62 Random Glucose 67 Calcium 9.6 Magnesium Total Bilirubin Direct Bilirubin AST ALT Alkaline Phosphatase Troponin I High Sens B-Natriuretic Peptide Total Protein Albumin Lipase ECG Interpretation: EKG with underlying sinus rhythm and possible lead reversal. Voltage criteria for LVH. In the other EKG, similar findings but the leads are normally placed. LVH. Imaging Radiologist's impression: Impressions Abdomen/Pelvis CT 09/30/23 11:28 IMPRESSION: 1. Compared to prior CT chest there has been decreased size of a moderate right pleural fluid collection with chest tube in place however which demonstrates new pleural thickening and stippled foci of gas throughout the fluid collection, raising the concern for the possibility of empyema, though the gas could be related to the underlying line, recommend correlation with drain output. There is right lower and right middle lobe volume loss with rounded subpleural consolidation favoring rounded atelectasis however continued attention on follow-up imaging. 2. There is mild asymmetric right lower pole perinephric fat stranding and periureteral fat stranding, which can be seen in the setting of recently passed stone, or ascending urinary tract infection/pyelonephritis, though pyelonephritis would be difficult to confirm given lack of intravenous contrast. No definite nephrolithiasis is identified though extensive atherosclerotic vascular calcification limits assessment. 3. Urinary bladder is thick-walled, though underdistended with mild infiltration of the perivesicular fat, recommend correlation with urinalysis and symptoms of cystitis. 4. Moderate pericardial effusion increased from prior CT chest. 5. Subtle nodularity of the hepatic contour, recommend correlation with risk factors for cirrhosis. Liver is enlarged measuring 19.7 cm in span, previously 19.4 cm. Chest X-Ray 09/30/23 11:38 IMPRESSION: 1. Moderate right pleural effusion increased from prior and with right basilar consolidation which may reflect atelectasis in the setting of effusion. 2. Streaky left midlung opacities favoring atelectasis. Chest X-Ray 10/01/23 08:30 IMPRESSION: Moderate right-sided pleural effusion is stable to mildly increased in size. Suspected Pleurx catheter projects over the right lung base. Assessment and Plan (1) Recurrent pleural effusion: Status: Acute (2) ESRD on dialysis: Status: Acute (3) Chronic pericardial effusion: Status: Acute (4) Chronic combined systolic and diastolic CHF (congestive heart failure): Status: Acute Plan Troponin levels are 97 and 108. Cardiac BNP level about 1999. In June, it was 627. Prior to that, as much as 3200. Hence has been up and down. Echocardiogram from April with LVEF of 35%. Moderate global hypokinesis. Moderate diastolic dysfunction. Depressed right ventricular function. Mild pulmonary hypertension. Small pericardial effusion. In the CT scan, there is concern for pericardial effusion as well as pleural effusion. Question of cirrhosis. From the heart failure standpoint, only thing that can be done is to optimize fluid removal during dialysis. For medications, he was on carvedilol last time but not clear why it was stopped. If able, resume. Otherwise, it seems he has hyperkalemia history and hence we did not put him on Entresto or spironolactone. If okay by Nephrology, consider Jardiance. As thoracic surgery to review the PleurX catheter. Nephrology to assess volume removal needs. Discussed with Dr. Winkler. Procedures Date of Service Date of Service: 10/01/23
[2023-10-01] MEDS: Pregabalin 75 MG CAPSULE PO (10:05)
[2023-10-01 10:15] LABS: Lactate Dehydrogenase 262 U/L (118-273)
--- NOTE | 2023-10-01 10:55 | P.PNIM_ITS ---
Subjective Subjective Date of Service: 10/01/23 Interval History: Seen and evaluated this morning Feels little better with less pain and dyspnea CXR showing increased effusion No other events Review of Systems Review of Systems: Yes all other systems are reviewed and are negative Physical Exam 2 Vital Signs: Vital Signs: Last Vital Signs Temp 97.9 F 10/01/23 07:02 Pulse 80 10/01/23 07:02 Resp 18 10/01/23 07:02 BP 170/72 H 10/01/23 07:35 Pulse Ox 92 10/01/23 07:02 O2 Del Method Room Air 10/01/23 07:02 BMI result Body Mass Index 28.7 Const: Other: Constitutional : Awake, interactive, not in distress Neck : Normal inspection, Supple Cardiovascular : RRR, no JVP, no lower extremity edema Respiratory : decrease RLL air movement with dullness on percussion, no wheezes , O2 sat 88-92% on RA , later right chest wall Pleurix cath covered with dressing Gastrointestinal: soft, lax, Normal bowel sounds, Non tender Skin : Warm, Dry, Permacath in place Neurological : Alert & oriented x3, No focal deficit Objective Data Active Medications Acetaminophen (Acetaminophen 325 Mg Tablet) 650 mg PO Q6H PRN PRN Reason: Pain, Mild (Pain Scale 1-3), fever or headache Albuterol Sulfate (Albuterol Sulfate 90 Mcg 8 Gm Inhaler) 2 puff INHALE Q4H PRN PRN Reason: Shortness Of Breath Last Admin: 10/01/23 09:28 Dose: 2 puff Documented By: VERÓNICA Albuterol/Ipratropium (Albuterol/Iprat 2.5/0.5mg 3 Ml Ampul.Neb) 3 ml INHALE Q4H PRN PRN Reason: Wheezing Allopurinol (Allopurinol 100 Mg Tablet) 100 mg PO MOWEFR@1600 [facility] Aspirin (Aspirin Enteric Coated 81 Mg Tablet.) 81 mg PO DAILY [facility] Last Admin: 10/01/23 09:29 Dose: 81 mg Documented By: VERÓNICA Atorvastatin Calcium (Atorvastatin Calcium 40 Mg Tablet) 40 mg PO DAILY [facility] Last Admin: 10/01/23 09:29 Dose: 40 mg Documented By: VERÓNICA Benzonatate (Benzonatate 100 Mg Capsule) 100 mg PO TID PRN PRN Reason: Cough Calcium Carbonate (Calcium Carbonate 750 Mg Tab.Chew) 750 mg PO Q4H PRN PRN Reason: Heartburn Carvedilol (Carvedilol 6.25 Mg Tablet) 6.25 mg PO BID [facility]; Protocol Doxazosin Mesylate (Doxazosin Mesylate 2 Mg Tablet) 4 mg PO BEDTIME [facility]; Protocol Doxycycline Monohydrate (Doxycycline Monohydrate 100 Mg Capsule) 100 mg PO Q12H [facility] Fluticasone/Umeclidinium/Vilanterol (Fluticasone/Umeclidinium/Vilanterol 200/62.5/25 Blst.W.Dev) 1 puff INHALE RDAILY [facility] Last Admin: 10/01/23 09:47 Dose: 1 puff Documented By: VERÓNICA Furosemide (Furosemide 40 Mg Tablet) 80 mg PO DAILY [facility]; Protocol Last Admin: 10/01/23 09:28 Dose: 80 mg Documented By: VERÓNICA Heparin Sodium (Porcine) (Heparin Sodium,Porcine 5,000 Unit/Ml Vial) 5,000 unit SUBCUT Q12H [facility] Last Admin: 10/01/23 09:29 Dose: 5,000 unit Documented By: VERÓNICA Hydralazine HCl (Hydralazine Hcl 50 Mg Tablet) 50 mg PO TID [facility]; Protocol Last Admin: 10/01/23 09:29 Dose: 50 mg Documented By: VERÓNICA Ceftriaxone Sodium 1 gm/ (Sodium Chloride) 50 mls @ 100 mls/hr IV Q24H [facility] Last Infusion: 10/01/23 10:38 Dose: Infused Documented By: VERÓNICA Insulin Glargine (Insulin Glargine,Hum.Rec.Anlog 100 Unit/Ml 10 Ml Vial) 20 unit SUBCUT BEDTIME [facility] Last Admin: 09/30/23 20:51 Dose: 20 unit Documented By: DAVID Insulin Human Lispro (Insulin Lispro 100 Unit/Ml 3 Ml Vial) 0 unit SUBCUT QIDACHS [facility]; Protocol Last Admin: 10/01/23 07:33 Dose: Not Given Documented By: VERÓNICA Non-Admin Reason: No Insulin Coverage Magnesium Hydroxide (Milk Of Magnesia 30 Ml Oral.Susp) 30 ml PO DAILY PRN PRN Reason: Constipation Melatonin (Melatonin 3 Mg Tablet) 6 mg PO BEDTIME PRN PRN Reason: Insomnia Nifedipine (Nifedipine Er 90 Mg Tab.Er.24) 90 mg PO BID [facility]; Protocol Last Admin: 10/01/23 09:29 Dose: 90 mg Documented By: VERÓNICA Omeprazole (Omeprazole 20 Mg Capsule.Dr) 20 mg PO DAILY@0630 [facility] Ondansetron HCl (Ondansetron Hcl 4 Mg/2 Ml Vial) 4 mg IVPUSH Q8H PRN PRN Reason: Nausea and Vomiting Oxycodone HCl (Oxycodone Hcl Immed Release 5 Mg Tablet) 5 mg PO Q6H PRN PRN Reason: Pain, Severe (Pain Scale 7-10) Polyethylene Glycol (Polyethylene Glycol 3350 17 Gm Powd.Pack) 17 gm PO DAILY PRN PRN Reason: constipation Pregabalin (Pregabalin 75 Mg Capsule) 75 mg PO DAILY [facility] Last Admin: 10/01/23 10:05 Dose: 75 mg Documented By: VERNÓICA Senna/Docusate Sodium (Sennosides/Docusate Sodium Tablet) 1 tab PO DAILY PRN PRN Reason: Constipation Sodium Chloride (0.9 % Sodium Chloride Flush 3 Ml Syringe) 3 ml IVFLUSH QSHIFT [facility] Last Admin: 10/01/23 09:30 Dose: 3 ml Documented By: VERÓNICA Labs 10/01/23 05:35 10/01/23 05:35 Labs: Laboratory Results - last 24 hr 09/30/23 09/30/23 09/30/23 11:29 13:22 17:15 MCV 76.2 L MCH 23.5 L MCHC 30.9 L RDW 15.3 Plt Count 283 D MPV 11.3 Immature Gran % (Auto) 0.4 Neut % (Auto) 77.4 H Lymph % (Auto) 11.2 L [place] % (Auto) 10.1 Eos % (Auto) 0.6 Baso % (Auto) 0.3 Lymph # (Auto) 1.1 L [place] # (Auto) 1.0 Eos # (Auto) 0.1 Baso # (Auto) 0.0 Abs Immat Gran (auto) 0.04 H Absolute Neuts (auto) 7.5 Absolute Nucleated RBC 0.000 Nucleated RBC % (auto) 0.0 PT 14.4 H INR 1.2 H Anion Gap 18 Estim Creat Clear Calc 9.7 Estimated GFR 8 POC Glucose 159 H Random Glucose 157 H Calcium 9.8 D Magnesium 1.9 Total Bilirubin 0.4 Direct Bilirubin 0.2 AST 19 ALT 27 Alkaline Phosphatase 205 H Lactate Dehydrogenase Troponin I High Sens 97.0 H D 108.1 H* B-Natriuretic Peptide 2013 H Total Protein 7.5 Albumin 3.7 Lipase 19 09/30/23 10/01/23 10/01/23 20:20 05:35 07:27 MCV 76.1 L MCH 22.9 L MCHC 30.1 L RDW 15.0 Plt Count 291 MPV 11.3 Immature Gran % (Auto) 0.6 H Neut % (Auto) 79.4 H Lymph % (Auto) 9.3 L [place] % (Auto) 8.9 Eos % (Auto) 1.6 Baso % (Auto) 0.2 Lymph # (Auto) 0.9 L [place] # (Auto) 0.9 Eos # (Auto) 0.2 Baso # (Auto) 0.0 Abs Immat Gran (auto) 0.06 H Absolute Neuts (auto) 8.1 Absolute Nucleated RBC 0.020 H Nucleated RBC % (auto) 0.2 PT INR Anion Gap 20 Estim Creat Clear Calc 8.3 Estimated GFR 7 POC Glucose 225 H 62 Random Glucose 67 Calcium 9.6 Magnesium Total Bilirubin Direct Bilirubin AST ALT Alkaline Phosphatase Lactate Dehydrogenase 262 Troponin I High Sens B-Natriuretic Peptide Total Protein Albumin Lipase Assessment and Plan (1) Chronic combined systolic and diastolic CHF (congestive heart failure): Status: Acute (2) Elevated troponin: Status: Acute (3) Chronic pericardial effusion: Status: Acute (4) Recurrent pleural effusion: Status: Acute (5) Pneumonia: Status: Acute (6) ESRD on dialysis: Status: Acute Plan A 68 years old male with PMH of ESRD on HD,insulin-dependent type 2 diabetes, HTN, HLD, ROBERT on CPAP, sCHF w EF 35% presented to the ED for evaluation of dyspnea and SOB for the last 3-4 days. Right sided pleural effusion w Hx systolic CHF complicated by hypoxia chronic, worse than last CXR with new moderate pericardial effusion Pleurix only drained 100cc of clear liquid, to collect and send for analysis No urine output after Lasix IV Cardiology consult, increase Carvedilol, consider Jardiance repeat Echo Use O2 as needed w goal of 90-94% Consider Thoracentesis by IR Thoracic surgery has no plans for intervention during this hospitalization Community aquired pneumonia Not septic CT showing RLL infiltrate\atelactasis Start Doxycycline and Ceftriaxone Mucinex Incentive spirometry Fat stranding Rt kidney and ureter could be 2/2 infection or passing stone (not visualised) seen on CT scan not making urine , consider UA covered with empirical Abx Hepatomegally with nodularity seen on CT scan , concerning for cirrhosis normal LFT, with mildly elevated INR 1.2 hepatitis profile Elevated Trop and BNP related to ESRD not NSTEMI ESRD on HD Nephrology to follow for MWF sessions HTN Continue home meds Hx sCHF Not in exacerbation Continue Lasix and carvedilol with Lisinopril DMII SSI, Lantus and diabetic diet ROBERT CPAP DVT PPx Heparin The patient will need overnight hospital stay for treatment of Pneumonia, Pleural effusion pending Cardiology and nephrology evaluations Quality Stroke Does the patient have a stroke diagnosis?: No VTE Prior VTE?: No VTE Risk Level:: Medical - moderate - high VTE Device Contraindication: Treatment Not Indicated VTE Drug Contraindication: N/A - Med Ordered
[2023-10-01] MEDS: Doxycycline Monohydrate 100 MG CAPSULE PO ×2 (11:18→21:59)
[2023-10-01 11:21] LABS: Glucose, Whole Blood 114 mg/dL (60-115)
[2023-10-01] MEDS: guaiFENesin LA 600 MG TAB.ER.12H PO ×2 (12:03→20:32)
--- NOTE | 2023-10-01 16:27 | MHC.CM.PN ---
CM ATTEMPTED TO MEET WITH PT WHO WAS SLEEPING AND DID NOT WAKE TO NAME CM ATTEMPTED TO CALL PTS SON/HCP, ALYSSA [phone], NO ANSWER AND NO VM PER EMR, PT LIVES WITH HIS SON AND IS ACTIVE WITH [facility] FOR DAILY MED ADMINISTRATION, AND HAS A LOCK BOX PT HAS A HCP ON FILE AND HIS PCP IS SAIDA JACOBS DCP: HOME, RESUME [facility] TRANSPORT UNKNOWN AT THIS TIME
[2023-10-01 16:34] LABS: Glucose, Whole Blood 114 mg/dL (60-115)
[2023-10-01 20:31] LABS: Glucose, Whole Blood 137 mg/dL (60-115)
[2023-10-01] MEDS: Doxazosin Mesylate 2 MG TABLET 4 MG PO (20:31)
[2023-10-01] MEDS: carvediloL 6.25 MG TABLET PO (20:32)
[2023-10-01] MEDS: oxyCODONE HCl Immed Release 5 MG TABLET PO (20:36)
[2023-10-01] MEDS: Albuterol/Iprat 2.5/0.5MG 3 ML AMPUL.NEB INHALE (21:08)
[2023-10-01] MEDS: Insulin Glargine,Hum.rec.anlog 100 UNIT/ML 10 ML VIAL 20 UNIT SUBCUT (21:58)
[2023-10-02] VITALS (7 sets, daily range): BP systolic 132–157; BP diastolic 66–76; PULSE 64–74; RESP 18–20; TEMP 36.8–37.6; O2SAT 91–96
[2023-10-02 04:01] LABS: Glucose, Whole Blood 47 mg/dL (60-115)
[2023-10-02] MEDS: Dextrose 10 % 250 ML 750 ML IV (04:21)
[2023-10-02] MEDS: Acetaminophen 325 MG TABLET 650 MG PO ×2 (04:27→14:44)
[2023-10-02 04:38] LABS: Glucose, Whole Blood 77 mg/dL (60-115)
[2023-10-02 05:14] LABS: Glucose, Whole Blood 156 mg/dL (60-115)
[2023-10-02 06:14] LABS: Hematocrit 30.5 % (42.0-52.0); Hemoglobin 9.4 g/dl (14.0-18.0); Mean Corpuscular HGB Conc 30.8 g/dl (31.0-36.0); Mean Corpuscular Hemoglobin 23.3 pg (27.0-33.0); Mean Corpuscular Volume 75.5 fL (80.0-98.0); Mean Platelet Volume 11.5 fL (9.4-12.4); NRBC Pct Auto 0.2 /100WBC (0.0-0.2); Platelet Count 299 X10*3/uL (160-400); Red Blood Count 4.04 X10*6/uL (4.60-5.80); Red Cell Distribution Width 14.8 % (11.0-16.0); White Blood Count 10.4 X10*3/uL (4.8-10.8)
[2023-10-02 06:42] LABS: Anion Gap 20 (12-20); Blood Urea Nitrogen 64 mg/dL (9-16); Calcium 9.4 mg/dL (8.4-10.2); Carbon Dioxide 25 mmol/L (22-29); Chloride 98 mmol/L (96-108); Creatinine Clr Calc Pharmacy 6.3; Estimated Glomerular Filt Rate 5; Glucose Random 141 mg/dL (60-115); Potassium 4.2 mmol/L (3.3-5.1); Sodium 139 mmol/L (135-145)
[2023-10-02] MEDS: Omeprazole 20 MG CAPSULE.DR PO (06:42)
[2023-10-02 06:48] LABS: HBc Num1 0.07 S/CO (0.00-0.79); HBsAGNum1 0.21 S/CO (0.00-0.99); Hepatitis A Antibody IgM 0.32 Index (0-0.79); Hepatitis B Core Antibody Nonreactive (Nonreactive); Hepatitis B Surface Antigen Negative (Negative); ~HepC Num1 0.12 S/CO (0.00-0.79); ~Hepatitis A Antibody IgM Nonreactive (Nonreactive); ~Hepatitis B Surface Antibody REACTIVE (Nonreactive); ~Hepatitis C Antibody Nonreactive (Nonreactive)
--- NOTE | 2023-10-02 07:00 | CA_ITS ---
Transthoracic Echocardiogram Patient (Last, First, Middle): Beau Marie A Gender: Male Date of : 1955 Age: 68 Procedure Date: 10/02/2023 Procedure Type: Transthoracic Echocardiogram Location: [facility] Height: 162.56 cm Weight: 75.75 kg BSA: 1.81 m2 Heart Rate: 66 bpm BP: 138 / 66 mmHg Meter Maker: SB Referring MD: Edgardo Winkler MD Symptoms: Evelyne-cardial effusion Study Quality: Adequate ECG Rhythm: Sinus Conclusions: - Normal left ventricular cavity size. There is mildly increased left ventricular wall thickness. The left ventricular systolic function is low normal. The visually estimated ejection fraction is between 50-55%. - Elevated filling pressures. - Mildly increased right ventricular cavity size. There is low normal right ventricular systolic function. - The left atrium is moderately dilated. The right atrium is moderately dilated. - Mildly elevated right atrial pressure. Severe pulmonary hypertension is present. - There are no definitive echocardiographic findings of tamponade physiology. Trace pericardial effusion around left ventricle. - Mild to moderate sized pericardial effusion around the right atrium. Findings Left Ventricle Normal left ventricular cavity size. There is mildly increased left ventricular wall thickness. The left ventricular systolic function is low normal. The visually estimated ejection fraction is between 50-55%. There is no evidence of regional wall motion abnormalities. Abnormal diastolic function is noted. Spectral Doppler is indicative of a pseudonormal filling pattern. Elevated filling pressures. Right Ventricle Mildly increased right ventricular cavity size. There is low normal right ventricular systolic function. Atria The left atrium is moderately dilated. The right atrium is moderately dilated. Aortic Valve There is a normal trileaflet aortic valve. There is no aortic valve stenosis. There is no aortic valve regurgitation. Mitral Valve The mitral valve appears normal. There is trace mitral valve regurgitation. There is no mitral valve stenosis. Pulmonic Valve The pulmonic valve is likely normal. Tricuspid Valve Normal tricuspid valve structure. There is mild tricuspid valve regurgitation. The right ventricular systolic pressure is 61 mmHg. Mildly elevated right atrial pressure. Severe pulmonary hypertension is present. Great Vessels There is mild dilatation of the ascending aorta measuring 3.50 cm. The visualized portions of the pulmonary artery and branches are normal. Venous The inferior vena cava is normal in size and collapses less than 50% with inspiration. Pericardium/Pleural There are no definitive echocardiographic findings of tamponade physiology. Trace pericardial effusion around left ventricle. Mild to moderate sized pericardial effusion around the right atrium. Prior Study Comparison Changes noted compared to prior study dated: 04/11/2023. EF 50-55%, Low normal RV function, severe pulm HTN, mild to moderate effusion along right atrium. Measurements 2D Linear Measurements IVSd: 1.25 0.6-0.9/0.6-1.0 cm LVIDd: 5.74 3.9-5.3/4.2-5.9 cm LVIDd Index: 3.17 2.4-3.2/2.2-3.1 cm/m2 LVIDs: 4.25 2.0-3.6 cm LVPWd: 1.30 0.7-1.1 cm LA Diam: 4.30 2.7-3.8/3.0-4.0 cm LAIDs Index: 2.38 1.5-2.3 cm/m2 LV Mass: 488.16 67-162/88-224 g LV Mass Index: 269.70 43-95/49-115 g/m2 LVOT Diam: 2.00 3.0+(-)1.3 cm 2D Systolic Function EF 4C: 52.10 >55% EF 2C: 53.60 >55% EF BiP: 54.30 >55% Mitral Valve MV Pk E: 1.25 MV PK A: 0.68 MV Decel Time: 184.00 E/A: 1.80 E'Lateral: 5.96 E'Medial: 4.39 E/E' Med: 28.50 E/E' Lat: 21.00 PHT: 54.00 MVA PHT: 4.07 Decel Alpine: 6.78 Aortic Valve AoV Pk Shayan: 1.70 AoV Pk Grad: 12.00 MERI: 1.99 LVOT LVOT Pk Shayan: 1.02 LVOT Mn Shayan: 0.71 LVOT VTI: 0.23 LVOT Pk Grad: 4.00 LVOT Mn Grad: 2.00 LVOT Diam: 2.00 LVOT Area: 3.14 Diastolic Function MV Pk E: 1.25 MV Pk A: 0.68 E/A: 1.80 E'Medial: 4.39 E/E' Med: 28.50 E' Laterial: 5.96 E/E' Lat: 21.00 Right Ventricle TAPSE (mm): 20.30 TVS' Shayan: 10.70 Tricuspid Valve TR Pk Shayan: 3.63 TR Pk Grad: 53.00 RA Press: 8.00 RVSP: 61.00 Great Vessels Aorta Sinus of Valsalva: 2.90 2.0-3.5 cm Ao Asc: 3.50 2.1-3.4 cm Pulmonary Valve PV Pk Shayan: 0.87 Peak PV Grad: 3.00 Updated in Other Vendor System with Status of Final Tim Lan MD electronically signed on 10/02/2023 10:53:49 AM with status of Final
[2023-10-02 07:38] LABS: Glucose, Whole Blood 112 mg/dL (60-115)
[2023-10-02] MEDS: Fluticasone/Umeclidinium/Vilanterol 200/62.5/25 BLST.W.DEV 1 PUFF INHALE (07:55)
--- NOTE | 2023-10-02 09:06 | HO.THORCONS ---
Documented by User: Briana Valerio PA-C 10/03/23 09:21 History of Present Illness Consult details Consult date: 10/02/23 Requesting physician: Edgardo Winkler Narrative: A 68 years old male with PMH of ESRD on HD,insulin-dependent type 2 diabetes, HTN, HLD, ROBERT on CPAP, dCHF w EF 35% presented to the ED for evaluation of dyspnea and SOB for the last 3-4 days. He had a right pleur-x catheter placed 07/12 uneventfully for recurrent right pleural effusions requiring frequent thoracentesis. He had been doing well and his pleur-x catheter was functioning well and close to a liter drained during his VNA visits. He presented to the ED with worsening shortness of breath with right sided effusion on CXR. Pleur-x drained only 100 cc of serous fluid. He had hypoxia and was admitted to the hospitalist service for further treatment. He is being treated for Community aquired pneumonia as CT showing RLL infiltrate\atelactasis. Review of Systems Constitutional: Constitutional: Denies chills and Denies fever(s) ENT: Denies dizziness Cardiovascular: Cardiovascular: Denies chest pain and Reports dyspnea Respiratory: Respiratory: Reports dyspnea Gastrointestinal: Gastrointestinal: Denies abdominal pain, Denies nausea and Denies vomiting Integumentary/Breasts: Skin/Breast: Denies rash Neurologic: Denies dizziness PMFSH Past Medical History Medical History Arthritis Asthma Restless leg syndrome Acute on chronic systolic and diastolic heart failure, NYHA class 3 Anemia Occlusive thrombus Pulmonary edema ROBERT (obstructive sleep apnea) Type 2 diabetes mellitus Hyperlipidemia Hypertension A-V fistula ESRD on dialysis Falling Family History Family History Father No problems noted. Mother No problems noted. Surgical History Surgical History Pleural effusion on right (07/13/23) History of surgery H/O colonoscopy Social History Social History Household Members: Children Household Members Other:: son Housing: Apartment Do you presently have visiting nurse or other home services: No Alcohol intake: never Comment: counts correct Patient Tobacco Use Status: Former Tobacco user Tobacco use type: Cigarette service: No Meds Allergies Allergy/AdvReac Type Severity Reaction Status Date / Time No Known Allergies Allergy Verified 09/30/23 11:01 Active Medications: Current Medications Acetaminophen (Acetaminophen 325 Mg Tablet) 650 mg PO Q6H PRN PRN Reason: Pain, Mild (Pain Scale 1-3), fever or headache Last Admin: 10/02/23 14:44 Dose: 650 mg Albuterol Sulfate (Albuterol Sulfate 90 Mcg 8 Gm Inhaler) 2 puff INHALE Q4H PRN PRN Reason: Shortness Of Breath Last Admin: 10/01/23 09:28 Dose: 2 puff Albuterol/Ipratropium (Albuterol/Iprat 2.5/0.5mg 3 Ml Ampul.Neb) 3 ml INHALE Q4H PRN PRN Reason: Wheezing Last Admin: 10/01/23 21:08 Dose: 3 ml Allopurinol (Allopurinol 100 Mg Tablet) 100 mg PO MOWEFR@1600 [facility] Last Admin: 10/02/23 15:32 Dose: 100 mg Aspirin (Aspirin Enteric Coated 81 Mg Tablet.Dr) 81 mg PO DAILY [facility] Last Admin: 10/01/23 09:29 Dose: 81 mg Atorvastatin Calcium (Atorvastatin Calcium 40 Mg Tablet) 40 mg PO DAILY [facility] Last Admin: 10/02/23 09:40 Dose: 40 mg Benzonatate (Benzonatate 100 Mg Capsule) 100 mg PO TID PRN PRN Reason: Cough Calcium Carbonate (Calcium Carbonate 750 Mg Tab.Chew) 750 mg PO Q4H PRN PRN Reason: Heartburn Carvedilol (Carvedilol 6.25 Mg Tablet) 6.25 mg PO BID [facility]; Protocol Last Admin: 10/02/23 20:40 Dose: 6.25 mg Doxazosin Mesylate (Doxazosin Mesylate 2 Mg Tablet) 4 mg PO BEDTIME [facility]; Protocol Last Admin: 10/02/23 20:39 Dose: 4 mg Doxycycline Monohydrate (Doxycycline Monohydrate 100 Mg Capsule) 100 mg PO Q12H [facility] Last Admin: 10/02/23 21:56 Dose: 100 mg Fluticasone/Umeclidinium/Vilanterol (Fluticasone/Umeclidinium/Vilanterol 200/62.5/25 Blst.W.Dev) 1 puff INHALE RDAILY [facility] Last Admin: 10/03/23 08:33 Dose: 1 puff Furosemide (Furosemide 40 Mg Tablet) 80 mg PO DAILY [facility]; Protocol Last Admin: 10/02/23 09:40 Dose: 80 mg Glucose (Glucose Gel 15 Gm Gel..Gram.) 15 gm PO Q15M PRN; Protocol PRN Reason: per Hypoglycemia Standing Ord. Guaifenesin (Guaifenesin La 600 Mg Tab.Er.12h) 600 mg PO BID [facility] Last Admin: 10/02/23 20:40 Dose: 600 mg Heparin Sodium (Porcine) (Heparin Sodium,Porcine 5,000 Unit/Ml Vial) 5,000 unit SUBCUT Q12H [facility] Last Admin: 10/01/23 09:29 Dose: 5,000 unit Hydralazine HCl (Hydralazine Hcl 50 Mg Tablet) 50 mg PO TID [facility]; Protocol Last Admin: 10/02/23 20:39 Dose: 50 mg Ceftriaxone Sodium 1 gm/ (Sodium Chloride) 50 mls @ 100 mls/hr IV Q24H [facility] Last Infusion: 10/02/23 10:15 Dose: Infused Dextrose (D10) 250 mls @ 750 mls/hr IV Q15M PRN; Protocol PRN Reason: per Hypoglycemia Standing Ord. Last Infusion: 10/02/23 04:45 Dose: Infused Insulin Glargine (Insulin Glargine,Hum.Rec.Anlog 100 Unit/Ml 10 Ml Vial) 15 unit SUBCUT BEDTIME [facility] Last Admin: 10/02/23 20:41 Dose: 15 unit Insulin Human Lispro (Insulin Lispro 100 Unit/Ml 3 Ml Vial) 0 unit SUBCUT QIDACHS [facility]; Protocol Last Admin: 10/03/23 07:56 Dose: Not Given Losartan Potassium (Losartan Potassium 25 Mg Tablet) 25 mg PO DAILY [facility]; Protocol Magnesium Hydroxide (Milk Of Magnesia 30 Ml Oral.Susp) 30 ml PO DAILY PRN PRN Reason: Constipation Melatonin (Melatonin 3 Mg Tablet) 6 mg PO BEDTIME PRN PRN Reason: Insomnia Morphine Sulfate (Morphine Sulfate 2 Mg/Ml Cartridge) 2 mg IVPUSH Q4H PRN; Protocol PRN Reason: Pain, Severe (Pain Scale 7-10) Last Admin: 10/02/23 21:56 Dose: 2 mg Nifedipine (Nifedipine Er 90 Mg Tab.Er.24) 90 mg PO BID [facility]; Protocol Last Admin: 10/02/23 20:40 Dose: 90 mg Omeprazole (Omeprazole 20 Mg Capsule.Dr) 20 mg PO DAILY@0630 [facility] Last Admin: 10/03/23 06:07 Dose: 20 mg Ondansetron HCl (Ondansetron Hcl 4 Mg/2 Ml Vial) 4 mg IVPUSH Q8H PRN PRN Reason: Nausea and Vomiting Oxycodone HCl (Oxycodone Hcl Immed Release 5 Mg Tablet) 5 mg PO Q6H PRN PRN Reason: Pain, Severe (Pain Scale 7-10) Last Admin: 10/01/23 20:36 Dose: 5 mg Polyethylene Glycol (Polyethylene Glycol 3350 17 Gm Powd.Pack) 17 gm PO DAILY PRN PRN Reason: constipation Pregabalin (Pregabalin 75 Mg Capsule) 75 mg PO DAILY [facility] Last Admin: 10/02/23 09:40 Dose: 75 mg Senna/Docusate Sodium (Sennosides/Docusate Sodium Tablet) 1 tab PO DAILY PRN PRN Reason: Constipation Sodium Chloride (0.9 % Sodium Chloride Flush 3 Ml Syringe) 3 ml IVFLUSH QSHIFT [facility] Last Admin: 10/03/23 00:00 Dose: 3 ml Home Medications ?Medication ?Instructions ?Recorded ?Confirmed ?Last Taken ?Type albuterol sulfate 90 mcg/actuation 2 puff inhalation Q4H PRN 04/19/22 09/30/23 Unknown History aerosol inhaler Shortness Of Breath allopurinol 100 mg tablet 100 mg PO MOWEFR@1600 04/19/22 09/30/23 04/18/22 History atorvastatin 40 mg tablet 40 mg PO DAILY 04/19/22 09/30/23 09/30/23 09:00 History doxazosin 4 mg tablet 4 mg PO BEDTIME 04/19/22 09/30/23 04/18/22 History furosemide 80 mg tablet 80 mg PO DAILY 04/19/22 09/30/23 09/30/23 09:00 History ipratropium 0.5 mg-albuterol 3 mg 3 ml inhalation Q4H PRN Wheezing 04/19/22 09/30/23 Unknown History (2.5 mg base)/3 mL nebulization soln omeprazole 20 mg capsule,delayed 20 mg PO DAILY@0630 04/19/22 09/30/23 09/30/23 09:00 History release sennosides 8.6 mg-docusate sodium 1 tab PO DAILY PRN Constipation 04/19/22 09/30/23 04/19/22 History 50 mg tablet (Senna-Time S) insulin glargine 100 unit/mL (3 22 unit subcut BEDTIME 04/10/23 09/30/23 Unknown History mL) subcutaneous pen (Lantus Solostar U-100 Insulin) insulin lispro 100 unit/mL 1 sliding scale dose subcut TIDAC 04/10/23 09/30/23 09/30/23 09:00 History subcutaneous pen aspirin 81 mg tablet,delayed 81 mg PO DAILY 06/20/23 09/30/23 09/30/23 09:00 History release lisinopril 10 mg tablet 10 mg PO DAILY 06/20/23 09/30/23 09/30/23 09:00 History nifedipine 90 mg tablet,extended 90 mg PO BID 06/20/23 09/30/23 09/30/23 09:00 History release polyethylene glycol 3350 17 17 g PO DAILY PRN constipation 06/20/23 09/30/23 Unknown History gram/dose oral powder pregabalin 75 mg capsule 75 mg PO DAILY 06/20/23 09/30/23 09/30/23 09:00 History fluticasone fur. 200 mcg-umeclid 1 ea inhalation DAILY 09/30/23 09/30/23 09/30/23 09:00 History 62.5 mcg-vilant 25 mcg inhalat.powder (Trelegy Ellipta) hydralazine 50 mg tablet 50 mg PO TID 09/30/23 09/30/23 09/30/23 09:00 History Physical Exam Vital Signs: Vital Signs: Last Vital Signs Temp 97.1 F 10/03/23 07:07 Pulse 84 10/03/23 08:34 Resp 20 10/03/23 08:34 BP 134/72 10/03/23 07:07 Pulse Ox 96 10/03/23 07:07 O2 Del Method Room Air 10/03/23 07:07 O2 Flow Rate 2 10/03/23 03:17 BMI result Body Mass Index 28.7 Const: General: comfortable, no acute distress and alert Orientation/consciousness: patient oriented x3 Chest: Other: right pleur-x catheter in place, surrounding site clean without erythema Resp: Effort & Inspection: normal respiratory effort, no cough and no respiratory distress Skin: General skin exam: no rashes or lesions noted Neuro: General: patient oriented x3 Results Labs 10/02/23 05:33 10/02/23 05:33 Labs: Abnormal lab results 10/02/23 10/03/23 Range/Units 20:29 06:51 POC Glucose 168 H 117 H (60-115) mg/dL All other labs normal. Imaging Chest x-ray: report reviewed and image reviewed Abdomen CT scan report/results: report reviewed Assessment and Plan (1) Recurrent pleural effusion: Status: Acute Plan A 68 years old male with PMH of ESRD on HD,insulin-dependent type 2 diabetes, HTN, HLD, ROBERT on CPAP, dCHF w EF 35% presenting with worsening shortness of breath found to have right pleural effusion with decreased pleurx catheter output. Concern was that the pleurx is blocked and nonfunctioning vs empyema/loculated effusion. His pleurx cath site was evaluated and is intact and flushes. 50cc of TPA was administered without difficulty. 400cc of output following. Repeat CXR shows persistent pleural effusion this morning. Will reassess pleur-x drainage this morning. He is clinically appearing well and stable from respiratory standpoint and off supplemental O2. Procedures Date of Service Date of Service: 10/03/23 Documented by User: Rohith Valdes MD 10/03/23 09:21 [facility] Past Medical History Medical History Arthritis Asthma Restless leg syndrome Acute on chronic systolic and diastolic heart failure, NYHA class 3 Anemia Occlusive thrombus Pulmonary edema ROBERT (obstructive sleep apnea) Type 2 diabetes mellitus Hyperlipidemia Hypertension A-V fistula ESRD on dialysis Falling Family History Family History Father No problems noted. Mother No problems noted. Surgical History Surgical History Pleural effusion on right (07/13/23) History of surgery H/O colonoscopy Social History Social History Household Members: Children Household Members Other:: son Housing: Apartment Do you presently have visiting nurse or other home services: No Alcohol intake: never Comment: counts correct Patient Tobacco Use Status: Former Tobacco user Tobacco use type: Cigarette service: No Meds Allergies Allergy/AdvReac Type Severity Reaction Status Date / Time No Known Allergies Allergy Verified 09/30/23 11:01 Home Medications ?Medication ?Instructions ?Recorded ?Confirmed ?Last Taken ?Type albuterol sulfate 90 mcg/actuation 2 puff inhalation Q4H PRN 04/19/22 09/30/23 Unknown History aerosol inhaler Shortness Of Breath allopurinol 100 mg tablet 100 mg PO MOWEFR@1600 04/19/22 09/30/23 04/18/22 History atorvastatin 40 mg tablet 40 mg PO DAILY 04/19/22 09/30/23 09/30/23 09:00 History doxazosin 4 mg tablet 4 mg PO BEDTIME 04/19/22 09/30/23 04/18/22 History furosemide 80 mg tablet 80 mg PO DAILY 04/19/22 09/30/23 09/30/23 09:00 History ipratropium 0.5 mg-albuterol 3 mg 3 ml inhalation Q4H PRN Wheezing 04/19/22 09/30/23 Unknown History (2.5 mg base)/3 mL nebulization soln omeprazole 20 mg capsule,delayed 20 mg PO DAILY@0630 04/19/22 09/30/23 09/30/23 09:00 History release sennosides 8.6 mg-docusate sodium 1 tab PO DAILY PRN Constipation 04/19/22 09/30/23 04/19/22 History 50 mg tablet (Senna-Time S) insulin glargine 100 unit/mL (3 22 unit subcut BEDTIME 04/10/23 09/30/23 Unknown History mL) subcutaneous pen (Lantus Solostar U-100 Insulin) insulin lispro 100 unit/mL 1 sliding scale dose subcut TIDAC 04/10/23 09/30/23 09/30/23 09:00 History subcutaneous pen aspirin 81 mg tablet,delayed 81 mg PO DAILY 06/20/23 09/30/23 09/30/23 09:00 History release lisinopril 10 mg tablet 10 mg PO DAILY 06/20/23 09/30/23 09/30/23 09:00 History nifedipine 90 mg tablet,extended 90 mg PO BID 06/20/23 09/30/23 09/30/23 09:00 History release polyethylene glycol 3350 17 17 g PO DAILY PRN constipation 06/20/23 09/30/23 Unknown History gram/dose oral powder pregabalin 75 mg capsule 75 mg PO DAILY 06/20/23 09/30/23 09/30/23 09:00 History fluticasone fur. 200 mcg-umeclid 1 ea inhalation DAILY 09/30/23 09/30/23 09/30/23 09:00 History 62.5 mcg-vilant 25 mcg inhalat.powder (Trelegy Ellipta) hydralazine 50 mg tablet 50 mg PO TID 09/30/23 09/30/23 09/30/23 09:00 History Results Labs 10/02/23 05:33 10/02/23 05:33 Assessment and Plan (1) Recurrent pleural effusion: Status: Acute Procedures Date of Service Date of Service: 10/03/23
[2023-10-02] MEDS: guaiFENesin LA 600 MG TAB.ER.12H PO ×2 (09:40→20:40)
[2023-10-02] MEDS: Pregabalin 75 MG CAPSULE PO (09:40)
[2023-10-02] MEDS: Atorvastatin Calcium 40 MG TABLET PO (09:40)
[2023-10-02] MEDS: hydrALAZINE HCl 50 MG TABLET PO ×3 (09:40→20:39)
[2023-10-02] MEDS: NIFEdipine ER 90 MG TAB.ER.24 PO ×2 (09:40→20:40)
[2023-10-02] MEDS: Furosemide 40 MG TABLET 80 MG PO (09:40)
[2023-10-02] MEDS: carvediloL 6.25 MG TABLET PO ×2 (09:40→20:40)
[2023-10-02] MEDS: 0.9 % Sodium Chloride Flush 3 ML SYRINGE IVFLUSH ×3 (09:41→15:32)
[2023-10-02] MEDS: cefTRIAXone sodium 1 GM in 0.9 % Sodium Chloride 50 ML IV (09:42)
--- NOTE | 2023-10-02 10:32 | PM.PNCARD ---
Subjective Subjective Date of Service: 10/02/23 Interval history: Seen and examined while on hemodialysis. Denying any active symptoms currently. Physical Exam Vital Signs: Last Vital Signs Temp 98.4 F 10/02/23 07:19 Pulse 74 10/02/23 08:48 Resp 18 10/02/23 07:56 BP 139/66 10/02/23 07:19 Pulse Ox 94 10/02/23 07:19 O2 Del Method Nasal Cannula 10/02/23 07:19 O2 Flow Rate 2 10/02/23 07:19 BMI result Body Mass Index 28.7 GENERAL APPEARANCE: in no acute distress, pleasant. SKIN: no suspicious lesions, warm and dry. Right chest wall PermCath. HEART: no murmurs, regular rate and rhythm. LUNGS: clear to auscultation anteriorly. ABDOMEN: soft, nontender. EXTREMITIES: no edema. PERIPHERAL PULSES: equal. NEUROLOGIC: No gross deficits, AAO X 3 Objective Labs and Meds 10/02/23 05:33 10/02/23 05:33 Lab results: Laboratory Results - last 24 hr 10/01/23 10/01/23 10/01/23 11:02 16:28 20:17 WBC RBC Hgb Hct MCV MCH MCHC RDW Plt Count MPV Absolute Nucleated RBC Nucleated RBC % (auto) Sodium Potassium Chloride Carbon Dioxide Anion Gap BUN Creatinine Estim Creat Clear Calc Estimated GFR POC Glucose 114 114 137 H Random Glucose Calcium Hepatitis A IgM Ab Hep Bs Antigen Hep Bs Antibody Hep B Core Total Ab Hepatitis C Ab (EIA) 10/02/23 10/02/23 10/02/23 03:57 04:18 05:03 WBC RBC Hgb Hct MCV MCH MCHC RDW Plt Count MPV Absolute Nucleated RBC Nucleated RBC % (auto) Sodium Potassium Chloride Carbon Dioxide Anion Gap BUN Creatinine Estim Creat Clear Calc Estimated GFR POC Glucose 47 L* 77 156 H Random Glucose Calcium Hepatitis A IgM Ab Hep Bs Antigen Hep Bs Antibody Hep B Core Total Ab Hepatitis C Ab (EIA) 10/02/23 10/02/23 05:33 07:20 WBC 10.4 RBC 4.04 L Hgb 9.4 L Hct 30.5 L MCV 75.5 L MCH 23.3 L MCHC 30.8 L RDW 14.8 Plt Count 299 MPV 11.5 Absolute Nucleated RBC 0.020 H Nucleated RBC % (auto) 0.2 Sodium 139 Potassium 4.2 Chloride 98 Carbon Dioxide 25 Anion Gap 20 BUN 64 H Creatinine 10.58 H* Estim Creat Clear Calc 6.3 Estimated GFR 5 POC Glucose 112 Random Glucose 141 H Calcium 9.4 Hepatitis A IgM Ab Nonreactive Hep Bs Antigen Negative Hep Bs Antibody REACTIVE Hep B Core Total Ab Nonreactive Hepatitis C Ab (EIA) Nonreactive Progress Note: A&P Assessment and plan (1) ESRD on dialysis: Status: Acute (2) Recurrent pleural effusion: Status: Acute (3) Chronic pericardial effusion: Status: Acute Plan 68-year-old gentleman with known moderate cardiomyopathy and end-stage renal disease on hemodialysis. He is presenting for recurrent right-sided pleural effusion. There is concern for loculation as he already has a drain in place but still developed worsening effusion. There is some atelectasis in the right lung on CT scan. He also had a moderate-sized pericardial effusion seen on CT scan. We will do echocardiogram to assess for any tamponade physiology although clinically he is not neck tamponade. Hemodialysis and management of fluid status. Blood pressure control improving although was quite hypertensive on admission. Reportedly had hyperkalemia with ARB spironolactone in the past. Discuss with Nephrology whether these can be started now as he is on hemodialysis. Thank you for allowing me to participate in the care of your patient. Please feel free to contact me if you have any questions. Time Spent With Patient Time: Total time managing care of this patient today ____ minutes. Progress Note: Quality Stroke Does the patient have a stroke diagnosis?: No Procedures Date of Service Date of Service: 10/02/23
--- NOTE | 2023-10-02 12:24 | P.PNIM_ITS ---
Subjective Subjective Date of Service: 10/02/23 Interval History: Seen and evaluated this morning Feels little better with less pain and dyspnea but wearing O2 supplement plan for HD and Echo No other events Review of Systems Review of Systems: Yes all other systems are reviewed and are negative Physical Exam 2 Vital Signs: Vital Signs: Last Vital Signs Temp 98.4 F 10/02/23 07:19 Pulse 74 10/02/23 08:48 Resp 18 10/02/23 07:56 BP 139/66 10/02/23 07:19 Pulse Ox 94 10/02/23 07:19 O2 Del Method Nasal Cannula 10/02/23 07:19 O2 Flow Rate 2 10/02/23 07:19 BMI result Body Mass Index 28.7 Const: Other: Constitutional : Awake, interactive, not in distress Neck : Normal inspection, Supple Cardiovascular : RRR, no JVP, no lower extremity edema Respiratory : decrease RLL air movement with dullness on percussion, no wheezes , O2 sat 88-94% on RA , later right chest wall Pleurix cath covered with dressing Gastrointestinal: soft, lax, Normal bowel sounds, Non tender Skin : Warm, Dry, Permacath in place Neurological : Alert & oriented x3, No focal deficit Objective Data Active Medications Acetaminophen (Acetaminophen 325 Mg Tablet) 650 mg PO Q6H PRN PRN Reason: Pain, Mild (Pain Scale 1-3), fever or headache Last Admin: 10/02/23 04:27 Dose: 650 mg Documented By: BONIFACIO Albuterol Sulfate (Albuterol Sulfate 90 Mcg 8 Gm Inhaler) 2 puff INHALE Q4H PRN PRN Reason: Shortness Of Breath Last Admin: 10/01/23 09:28 Dose: 2 puff Documented By: VERÓNICA Albuterol/Ipratropium (Albuterol/Iprat 2.5/0.5mg 3 Ml Ampul.Neb) 3 ml INHALE Q4H PRN PRN Reason: Wheezing Last Admin: 10/01/23 21:08 Dose: 3 ml Documented By: EVENS Allopurinol (Allopurinol 100 Mg Tablet) 100 mg PO MOWEFR@1600 [facility] Aspirin (Aspirin Enteric Coated 81 Mg Tablet.) 81 mg PO DAILY [facility] Last Admin: 10/01/23 09:29 Dose: 81 mg Documented By: VERÓNICA Atorvastatin Calcium (Atorvastatin Calcium 40 Mg Tablet) 40 mg PO DAILY [facility] Last Admin: 10/02/23 09:40 Dose: 40 mg Documented By: BONIFACIO Benzonatate (Benzonatate 100 Mg Capsule) 100 mg PO TID PRN PRN Reason: Cough Calcium Carbonate (Calcium Carbonate 750 Mg Tab.Chew) 750 mg PO Q4H PRN PRN Reason: Heartburn Carvedilol (Carvedilol 6.25 Mg Tablet) 6.25 mg PO BID [facility]; Protocol Last Admin: 10/02/23 09:40 Dose: 6.25 mg Documented By: BONIFACIO Doxazosin Mesylate (Doxazosin Mesylate 2 Mg Tablet) 4 mg PO BEDTIME [facility]; Protocol Last Admin: 10/01/23 20:31 Dose: 4 mg Documented By: DANE Doxycycline Monohydrate (Doxycycline Monohydrate 100 Mg Capsule) 100 mg PO Q12H [facility] Last Admin: 10/01/23 21:59 Dose: 100 mg Documented By: DANE Fluticasone/Umeclidinium/Vilanterol (Fluticasone/Umeclidinium/Vilanterol 200/62.5/25 Blst.W.Dev) 1 puff INHALE RDAILY [facility] Last Admin: 10/02/23 07:55 Dose: 1 puff Documented By: MINNA Furosemide (Furosemide 40 Mg Tablet) 80 mg PO DAILY [facility]; Protocol Last Admin: 10/02/23 09:40 Dose: 80 mg Documented By: BONIFACIO Glucose (Glucose Gel 15 Gm Gel..Gram.) 15 gm PO Q15M PRN; Protocol PRN Reason: per Hypoglycemia Standing Ord. Guaifenesin (Guaifenesin La 600 Mg Tab.Er.12h) 600 mg PO BID [facility] Last Admin: 10/02/23 09:40 Dose: 600 mg Documented By: BONIFACIO Heparin Sodium (Porcine) (Heparin Sodium,Porcine 5,000 Unit/Ml Vial) 5,000 unit SUBCUT Q12H [facility] Last Admin: 10/01/23 09:29 Dose: 5,000 unit Documented By: VERÓNICA Hydralazine HCl (Hydralazine Hcl 50 Mg Tablet) 50 mg PO TID [facility]; Protocol Last Admin: 10/02/23 09:40 Dose: 50 mg Documented By: BONIFACIO Ceftriaxone Sodium 1 gm/ (Sodium Chloride) 50 mls @ 100 mls/hr IV Q24H [facility] Last Infusion: 10/02/23 10:15 Dose: Infused Documented By: BONIFACIO Dextrose (D10) 250 mls @ 750 mls/hr IV Q15M PRN; Protocol PRN Reason: per Hypoglycemia Standing Ord. Last Infusion: 10/02/23 04:45 Dose: Infused Documented By: BONIFACIO Insulin Glargine (Insulin Glargine,Hum.Rec.Anlog 100 Unit/Ml 10 Ml Vial) 15 unit SUBCUT BEDTIME [facility] Insulin Human Lispro (Insulin Lispro 100 Unit/Ml 3 Ml Vial) 0 unit SUBCUT QIDACHS [facility]; Protocol Last Admin: 10/02/23 09:16 Dose: Not Given Documented By: BONIFACIO Non-Admin Reason: No Insulin Coverage Magnesium Hydroxide (Milk Of Magnesia 30 Ml Oral.Susp) 30 ml PO DAILY PRN PRN Reason: Constipation Melatonin (Melatonin 3 Mg Tablet) 6 mg PO BEDTIME PRN PRN Reason: Insomnia Nifedipine (Nifedipine Er 90 Mg Tab.Er.24) 90 mg PO BID [facility]; Protocol Last Admin: 10/02/23 09:40 Dose: 90 mg Documented By: BONIFACIO Omeprazole (Omeprazole 20 Mg Capsule.) 20 mg PO DAILY@0630 [facility] Last Admin: 10/02/23 06:42 Dose: 20 mg Documented By: BONIFACIO Ondansetron HCl (Ondansetron Hcl 4 Mg/2 Ml Vial) 4 mg IVPUSH Q8H PRN PRN Reason: Nausea and Vomiting Oxycodone HCl (Oxycodone Hcl Immed Release 5 Mg Tablet) 5 mg PO Q6H PRN PRN Reason: Pain, Severe (Pain Scale 7-10) Last Admin: 10/01/23 20:36 Dose: 5 mg Documented By: DANE Polyethylene Glycol (Polyethylene Glycol 3350 17 Gm Powd.Pack) 17 gm PO DAILY PRN PRN Reason: constipation Pregabalin (Pregabalin 75 Mg Capsule) 75 mg PO DAILY [facility] Last Admin: 10/02/23 09:40 Dose: 75 mg Documented By: BONIFACIO Senna/Docusate Sodium (Sennosides/Docusate Sodium Tablet) 1 tab PO DAILY PRN PRN Reason: Constipation Sodium Chloride (0.9 % Sodium Chloride Flush 3 Ml Syringe) 3 ml IVFLUSH QSHIFT [facility] Last Admin: 10/02/23 09:41 Dose: 3 ml Documented By: BONIFACIO Labs 10/02/23 05:33 10/02/23 05:33 Labs: Laboratory Results - last 24 hr 10/01/23 10/01/23 10/02/23 16:28 20:17 03:57 MCV MCH MCHC RDW Plt Count MPV Absolute Nucleated RBC Nucleated RBC % (auto) Anion Gap Estim Creat Clear Calc Estimated GFR POC Glucose 114 137 H 47 L* Random Glucose Calcium Hepatitis A IgM Ab Hep Bs Antigen Hep Bs Antibody Hep B Core Total Ab Hepatitis C Ab (EIA) 10/02/23 10/02/23 10/02/23 04:18 05:03 05:33 MCV 75.5 L MCH 23.3 L MCHC 30.8 L RDW 14.8 Plt Count 299 MPV 11.5 Absolute Nucleated RBC 0.020 H Nucleated RBC % (auto) 0.2 Anion Gap 20 Estim Creat Clear Calc 6.3 Estimated GFR 5 POC Glucose 77 156 H Random Glucose 141 H Calcium 9.4 Hepatitis A IgM Ab Nonreactive Hep Bs Antigen Negative Hep Bs Antibody REACTIVE Hep B Core Total Ab Nonreactive Hepatitis C Ab (EIA) Nonreactive 10/02/23 07:20 MCV MCH MCHC RDW Plt Count MPV Absolute Nucleated RBC Nucleated RBC % (auto) Anion Gap Estim Creat Clear Calc Estimated GFR POC Glucose 112 Random Glucose Calcium Hepatitis A IgM Ab Hep Bs Antigen Hep Bs Antibody Hep B Core Total Ab Hepatitis C Ab (EIA) Assessment and Plan (1) Pneumonia: Status: Acute (2) Chronic combined systolic and diastolic CHF (congestive heart failure): Status: Acute (3) Chronic pericardial effusion: Status: Acute (4) Recurrent pleural effusion: Status: Acute Plan A 68 years old male with PMH of ESRD on HD,insulin-dependent type 2 diabetes, HTN, HLD, ROBERT on CPAP, sCHF w EF 35% presented to the ED for evaluation of dyspnea and SOB for the last 3-4 days. Right sided pleural effusion w Hx systolic CHF chronic, worse than last CXR with new moderate pericardial effusion CT suggestive of loculated effusion Pleurix only drained 100cc of clear liquid, to collect and send for analysis Cardiology consult, increase Carvedilol, consider Jardiance , ARBs and Spironolactone repeat Echo pending Use O2 as needed w goal of 90-94% IR wont be able to adjust the Pleurix cath. Thoracic surgery to evaluate Community aquired pneumonia Not septic CT showing RLL infiltrate\atelactasis continue Doxycycline and Ceftriaxone Mucinex Incentive spirometry Fat stranding Rt kidney and ureter could be 2/2 infection or passing stone (not visualised) seen on CT scan not making urine , consider UA covered with empirical Abx Hepatomegally with nodularity seen on CT scan , concerning for cirrhosis normal LFT, with mildly elevated INR 1.2 hepatitis profile negative for infection Elevated Trop and BNP related to ESRD not NSTEMI ESRD on HD Nephrology to follow for MWF sessions HTN Continue home meds Hx sCHF Not in exacerbation Continue Lasix and carvedilol with Lisinopril DMII SSI, Lantus and diabetic diet ROBERT CPAP DVT PPx Heparin The patient will need overnight hospital stay for treatment of Pneumonia, Pleural effusion pending Echo and nephrology evaluations Quality Stroke Does the patient have a stroke diagnosis?: No VTE Prior VTE?: No VTE Risk Level:: Medical - moderate - high VTE Device Contraindication: Treatment Not Indicated VTE Drug Contraindication: N/A - Med Ordered
--- NOTE | 2023-10-02 12:55 | P.CONNP_ITS ---
History of Present Illness Reason for Consult Consult date: 10/02/23 Chief Complaint Chief complaint: Hypoxia, chest pain History of Present Illness Narrative: RTANE consulted for HD management in ESRD PT adm SOB severe HTN with dCHF, Pl effsussion H/O of ESRD on HD,insulin-dependent type 2 diabetes, HTN, HLD, ROBERT on CPAP, dCHF w EF 35% Hosp course included Chest tube but unable to drain much and CArd consultation Review of Systems Review of Systems: No fever, chills or weakness right sided chest pain, no palpitation reporting shortness of breath but no coughing No abdominal pain, nausea or vomiting No urinary symptoms PMFSH Medical History Arthritis Asthma Restless leg syndrome Acute on chronic systolic and diastolic heart failure, NYHA class 3 Anemia Occlusive thrombus Pulmonary edema ROBERT (obstructive sleep apnea) Type 2 diabetes mellitus Hyperlipidemia Hypertension A-V fistula ESRD on dialysis Falling Family History Father No problems noted. Mother No problems noted. Surgical History Pleural effusion on right (07/13/23) History of surgery H/O colonoscopy Social History Household Members: Family Household Members Other:: son Housing: Apartment Do you presently have visiting nurse or other home services: Yes Alcohol intake: never Comment: counts correct Patient Tobacco Use Status: Former Tobacco user Tobacco use type: Cigarette Smoked in Last 30 Days: No Use of substances other than those prescribed or required for medical reasons: No Advance Directives: No Do you have a plan to hurt others: No Plan service: No Review of Systems Review of Systems No fever, chills or weakness right sided chest pain, no palpitation reporting shortness of breath but no coughing No abdominal pain, nausea or vomiting No urinary symptoms Yes all other systems are reviewed and are negative Constitutional: Reports as per HPI and Reports no additional constitutional complaints Eyes: Reports as per HPI and Denies no additional eye complaints Denies system reviewed and no additional complaints, except as documented and Reports as per HPI Cardiovascular: Reports as per HPI, Reports no additional cardiovascular complaints, Denies acrocyanosis, Denies cool extremities, Reports chest pain, Denies leg edema, Denies lightheadedness, Denies palpitations and Reports dyspnea Respiratory: Reports as per HPI, Denies no additional respiratory complaints and Reports dyspnea Gastrointestinal: Reports as per HPI and Denies no additional gastrointestinal complaints Genitourinary: Reports no additional male genitourinary complaints and Reports as per HPI Musculoskeletal: Reports no additional musculoskeletal complaints and Reports as per HPI Skin/Breast: Reports system reviewed and no additional complaints, except as docu Reports system reviewed and no additional complaints, except as documented and Reports as per HPI Psychiatric: Reports no additional psychiatric complaints and Reports as per HPI Endocrine: Reports no additional endocrine complaints, Reports as per HPI and Denies palpitations Hematologic/Lymphatic: Reports no additional hematologic/lymphatic complaints and Reports as per HPI Allergic/Immunologic: Reports no additional allergic/immunologic complaints and Reports as per HPI ON LICENSE OF [facility] Past Medical History Medical History Arthritis Asthma Restless leg syndrome Acute on chronic systolic and diastolic heart failure, NYHA class 3 Anemia Occlusive thrombus Pulmonary edema ROBERT (obstructive sleep apnea) Type 2 diabetes mellitus Hyperlipidemia Hypertension A-V fistula ESRD on dialysis Falling Family History Family History Father No problems noted. Mother No problems noted. Surgical History Surgical History Pleural effusion on right (07/13/23) History of surgery H/O colonoscopy Social History Social History Household Members: Children Household Members Other:: son Housing: Apartment Do you presently have visiting nurse or other home services: No Alcohol intake: never Comment: counts correct Patient Tobacco Use Status: Former Tobacco user Tobacco use type: Cigarette service: No Meds Allergies Allergy/AdvReac Type Severity Reaction Status Date / Time No Known Allergies Allergy Verified 09/30/23 11:01 Active Medications: Current Medications Acetaminophen (Acetaminophen 325 Mg Tablet) 650 mg PO Q6H PRN PRN Reason: Pain, Mild (Pain Scale 1-3), fever or headache Last Admin: 10/02/23 04:27 Dose: 650 mg Albuterol Sulfate (Albuterol Sulfate 90 Mcg 8 Gm Inhaler) 2 puff INHALE Q4H PRN PRN Reason: Shortness Of Breath Last Admin: 10/01/23 09:28 Dose: 2 puff Albuterol/Ipratropium (Albuterol/Iprat 2.5/0.5mg 3 Ml Ampul.Neb) 3 ml INHALE Q4H PRN PRN Reason: Wheezing Last Admin: 10/01/23 21:08 Dose: 3 ml Allopurinol (Allopurinol 100 Mg Tablet) 100 mg PO MOWEFR@1600 [facility] Aspirin (Aspirin Enteric Coated 81 Mg Tablet.Dr) 81 mg PO DAILY [facility] Last Admin: 10/01/23 09:29 Dose: 81 mg Atorvastatin Calcium (Atorvastatin Calcium 40 Mg Tablet) 40 mg PO DAILY [facility] Last Admin: 10/02/23 09:40 Dose: 40 mg Benzonatate (Benzonatate 100 Mg Capsule) 100 mg PO TID PRN PRN Reason: Cough Calcium Carbonate (Calcium Carbonate 750 Mg Tab.Chew) 750 mg PO Q4H PRN PRN Reason: Heartburn Carvedilol (Carvedilol 6.25 Mg Tablet) 6.25 mg PO BID [facility]; Protocol Last Admin: 10/02/23 09:40 Dose: 6.25 mg Doxazosin Mesylate (Doxazosin Mesylate 2 Mg Tablet) 4 mg PO BEDTIME [facility]; Protocol Last Admin: 10/01/23 20:31 Dose: 4 mg Doxycycline Monohydrate (Doxycycline Monohydrate 100 Mg Capsule) 100 mg PO Q12H [facility] Last Admin: 10/01/23 21:59 Dose: 100 mg Fluticasone/Umeclidinium/Vilanterol (Fluticasone/Umeclidinium/Vilanterol 200/62.5/25 Blst.W.Dev) 1 puff INHALE RDAILY [facility] Last Admin: 10/02/23 07:55 Dose: 1 puff Furosemide (Furosemide 40 Mg Tablet) 80 mg PO DAILY [facility]; Protocol Last Admin: 10/02/23 09:40 Dose: 80 mg Glucose (Glucose Gel 15 Gm Gel..Gram.) 15 gm PO Q15M PRN; Protocol PRN Reason: per Hypoglycemia Standing Ord. Guaifenesin (Guaifenesin La 600 Mg Tab.Er.12h) 600 mg PO BID [facility] Last Admin: 10/02/23 09:40 Dose: 600 mg Heparin Sodium (Porcine) (Heparin Sodium,Porcine 5,000 Unit/Ml Vial) 5,000 unit SUBCUT Q12H [facility] Last Admin: 10/01/23 09:29 Dose: 5,000 unit Hydralazine HCl (Hydralazine Hcl 50 Mg Tablet) 50 mg PO TID [facility]; Protocol Last Admin: 10/02/23 09:40 Dose: 50 mg Ceftriaxone Sodium 1 gm/ (Sodium Chloride) 50 mls @ 100 mls/hr IV Q24H [facility] Last Infusion: 10/02/23 10:15 Dose: Infused Dextrose (D10) 250 mls @ 750 mls/hr IV Q15M PRN; Protocol PRN Reason: per Hypoglycemia Standing Ord. Last Infusion: 10/02/23 04:45 Dose: Infused Insulin Glargine (Insulin Glargine,Hum.Rec.Anlog 100 Unit/Ml 10 Ml Vial) 15 unit SUBCUT BEDTIME [facility] Insulin Human Lispro (Insulin Lispro 100 Unit/Ml 3 Ml Vial) 0 unit SUBCUT QIDACHS [facility]; Protocol Last Admin: 10/02/23 09:16 Dose: Not Given Magnesium Hydroxide (Milk Of Magnesia 30 Ml Oral.Susp) 30 ml PO DAILY PRN PRN Reason: Constipation Melatonin (Melatonin 3 Mg Tablet) 6 mg PO BEDTIME PRN PRN Reason: Insomnia Nifedipine (Nifedipine Er 90 Mg Tab.Er.24) 90 mg PO BID [facility]; Protocol Last Admin: 10/02/23 09:40 Dose: 90 mg Omeprazole (Omeprazole 20 Mg Capsule.) 20 mg PO DAILY@0630 [facility] Last Admin: 10/02/23 06:42 Dose: 20 mg Ondansetron HCl (Ondansetron Hcl 4 Mg/2 Ml Vial) 4 mg IVPUSH Q8H PRN PRN Reason: Nausea and Vomiting Oxycodone HCl (Oxycodone Hcl Immed Release 5 Mg Tablet) 5 mg PO Q6H PRN PRN Reason: Pain, Severe (Pain Scale 7-10) Last Admin: 10/01/23 20:36 Dose: 5 mg Polyethylene Glycol (Polyethylene Glycol 3350 17 Gm Powd.Pack) 17 gm PO DAILY PRN PRN Reason: constipation Pregabalin (Pregabalin 75 Mg Capsule) 75 mg PO DAILY [facility] Last Admin: 10/02/23 09:40 Dose: 75 mg Senna/Docusate Sodium (Sennosides/Docusate Sodium Tablet) 1 tab PO DAILY PRN PRN Reason: Constipation Sodium Chloride (0.9 % Sodium Chloride Flush 3 Ml Syringe) 3 ml IVFLUSH QSHIFT [facility] Last Admin: 10/02/23 09:41 Dose: 3 ml Home Medications ?Medication ?Instructions ?Recorded ?Confirmed ?Last Taken ?Type albuterol sulfate 90 mcg/actuation 2 puff inhalation Q4H PRN 04/19/22 09/30/23 Unknown History aerosol inhaler Shortness Of Breath allopurinol 100 mg tablet 100 mg PO MOWEFR@1600 04/19/22 09/30/23 04/18/22 History atorvastatin 40 mg tablet 40 mg PO DAILY 04/19/22 09/30/23 09/30/23 09:00 History doxazosin 4 mg tablet 4 mg PO BEDTIME 04/19/22 09/30/23 04/18/22 History furosemide 80 mg tablet 80 mg PO DAILY 04/19/22 09/30/23 09/30/23 09:00 History ipratropium 0.5 mg-albuterol 3 mg 3 ml inhalation Q4H PRN Wheezing 04/19/22 09/30/23 Unknown History (2.5 mg base)/3 mL nebulization soln omeprazole 20 mg capsule,delayed 20 mg PO DAILY@0630 04/19/22 09/30/23 09/30/23 09:00 History release sennosides 8.6 mg-docusate sodium 1 tab PO DAILY PRN Constipation 04/19/22 09/30/23 04/19/22 History 50 mg tablet (Senna-Time S) insulin glargine 100 unit/mL (3 22 unit subcut BEDTIME 04/10/23 09/30/23 Unknown History mL) subcutaneous pen (Lantus Solostar U-100 Insulin) insulin lispro 100 unit/mL 1 sliding scale dose subcut TIDAC 04/10/23 09/30/23 09/30/23 09:00 History subcutaneous pen aspirin 81 mg tablet,delayed 81 mg PO DAILY 06/20/23 09/30/23 09/30/23 09:00 History release lisinopril 10 mg tablet 10 mg PO DAILY 06/20/23 09/30/23 09/30/23 09:00 History nifedipine 90 mg tablet,extended 90 mg PO BID 06/20/23 09/30/23 09/30/23 09:00 History release polyethylene glycol 3350 17 17 g PO DAILY PRN constipation 06/20/23 09/30/23 Unknown History gram/dose oral powder pregabalin 75 mg capsule 75 mg PO DAILY 06/20/23 09/30/23 09/30/23 09:00 History fluticasone fur. 200 mcg-umeclid 1 ea inhalation DAILY 09/30/23 09/30/23 09/30/23 09:00 History 62.5 mcg-vilant 25 mcg inhalat.powder (Trelegy Ellipta) hydralazine 50 mg tablet 50 mg PO TID 09/30/23 09/30/23 09/30/23 09:00 History Physical Exam Vital Signs: Last Vital Signs Temp 98.4 F 10/02/23 07:19 Pulse 74 10/02/23 08:48 Resp 18 10/02/23 07:56 BP 139/66 10/02/23 07:19 Pulse Ox 94 10/02/23 07:19 O2 Del Method Nasal Cannula 10/02/23 07:19 O2 Flow Rate 2 10/02/23 07:19 BMI result Body Mass Index 28.7 Const Other: Constitutional : Awake, interactive, not in distress Neck : Normal inspection, Supple Cardiovascular : RRR, no JVP, no lower extremity edema Respiratory : decrease RLL air movement with dullness on percussion, no wheezes , O2 sat 88-94% on RA , later right chest wall Pleurix cath covered with dressing Gastrointestinal: soft, lax, Normal bowel sounds, Non tender Skin : Warm, Dry, Permacath in place Neurological : Alert & oriented x3, No focal deficit General: comfortable and no acute distress Orientation/consciousness: patient oriented x3 HEENT Other: Unremarkable Head: Yes normal to inspection Neck Neck: Yes normal visual inspection Chest Chest palpation & inspection: normal inspection of the chest Resp Other: some rhonchi left side Cardio Palpation: normal PMI Heart sounds: S1 normal heart sound present, S2 normal heart sound present, no gallops, no murmurs and no rubs GI Palpation (GI): Soft to palpation Back/Spine/Pelvis Other: unremarkable Skin General skin exam: no rashes or lesions noted Neuro General: patient oriented x3 Extrem General: Yes normal to inspection Psych Mental Status: mental status grossly normal Results Lab Results 10/02/23 05:33 10/02/23 05:33 Lab results: Chemistry 09/30/23 10/01/23 10/02/23 11:29 05:35 05:33 Sodium 142 141 139 Potassium 3.5 D 4.4 D 4.2 Carbon Dioxide 26 23 25 BUN 36 H 47 H 64 H Creatinine 6.84 H* 8.02 H* 10.58 H* Calcium 9.8 D 9.6 9.4 Hematology 09/30/23 10/01/23 10/02/23 11:29 05:35 05:33 WBC 9.7 10.1 10.4 Hgb 9.6 L 9.4 L 9.4 L Plt Count 283 D 291 299 Assessment and Plan (1) Pneumonia: Status: Acute (2) Chronic combined systolic and diastolic CHF (congestive heart failure): Status: Acute (3) Chronic pericardial effusion: Status: Acute (4) Recurrent pleural effusion: Status: Acute Plan ESRD mwf; HD today ( I saw him on HD today and he is feeling better) Pl effussion: being eval by IR and Thoracic Severe HTN: vol overloaded driven incr BP HFrEF: seen by cards REC: cont HD; start ARB; may need extra UF--will reassess daily; avoid aldactone at this time Will follow w team Procedures Date of Service Date of Service: 10/02/23
[2023-10-02 13:58] LABS: Glucose, Whole Blood 84 mg/dL (60-115)
[2023-10-02] MEDS: Doxycycline Monohydrate 100 MG CAPSULE PO ×2 (14:02→21:56)
--- NOTE | 2023-10-02 14:44 | MHC.CM.PN ---
IMM 10/01. Pt is Lao speaking only. Pt lives at home with his son/HCP Nestor, pt has VNA services with [facility], uses a cane, walker, and a shower chair. Pts son will transport her him home at discharge. PCP: Dr. Jade Lewis
[2023-10-02] MEDS: allopurinoL 100 MG TABLET PO (15:32)
[2023-10-02] MEDS: Alteplase Cath Clear 10 MG, Dornase Alfa 5 MG, Lidocaine HCl 2 % MPF 10 ML in 0.9 % Sod... 50 MG INTRAPLEUR (15:41)
[2023-10-02 15:50] LABS: Glucose, Whole Blood 106 mg/dL (60-115)
[2023-10-02] MEDS: Morphine Sulfate 2 MG/ML CARTRIDGE IVPUSH ×2 (17:26→21:56)
[2023-10-02 18:02] LABS: MN% 7.3 %; PMN% 92.7 %; RBC Pleural Fluid 0.168 X10*6/uL
--- NOTE | 2023-10-02 19:30 | PC.NURSE ---
Patient is alert and oriented X3. Patient remains on tele monitor resulting in SR. Patient remained on 2L oxygen via N/C. Patient is continent and last BM 10/02/23. Patient is stand by assist for transfers. Patient down to dialysis this afternoon. Thoracic team at bedside and administered alteplase into pleuravax. Pleuravax drainage used and 400cc of bloody drainage obtained and sent down to lab. Plan of care reviewed with patient and safety maintained.
[2023-10-02 19:50] LABS: BF Shift QC OK YES; Lymphocytes Pleural Fluid 4 %; Man Diluent Bkgrd OK YES; Neutrophils Pleural Fluid 96 %
[2023-10-02 20:33] LABS: Glucose, Whole Blood 168 mg/dL (60-115)
[2023-10-02] MEDS: Doxazosin Mesylate 2 MG TABLET 4 MG PO (20:39)
[2023-10-02] MEDS: Insulin Glargine,Hum.rec.anlog 100 UNIT/ML 10 ML VIAL 15 UNIT SUBCUT (20:41)
[2023-10-02] MEDS: Insulin Lispro 100 UNIT/ML 3 ML VIAL SUBCUT (20:42)
[2023-10-03] VITALS (9 sets, daily range): BP systolic 134–191; BP diastolic 72–88; PULSE 71–86; RESP 20; TEMP 36.2–37; O2SAT 90–96
[2023-10-03] MEDS: Omeprazole 20 MG CAPSULE.DR PO (06:07)
[2023-10-03 06:54] LABS: Glucose, Whole Blood 117 mg/dL (60-115)
--- NOTE | 2023-10-03 07:27 | P.CDIM_ITS ---
PROVIDER RESPONSE TEXT: To clarify, the appropriate diagnosis supported by the clinical indicators: Hypoglycemia QUERY TEXT: PHYSICIAN'S DOCUMENTATION REQUEST Date of Query: 10/02/2023 12:40 PM EDT Patient Name: Beau Marie Admit Date: 09/30/2023 Dear Edgardo Winkler MD, A review of the medical record indicates additional documentation may be needed. Please review below and update the documentation accordingly. Clinical Indicators: LAB FINDINGS: POC glucose 47 L DM Type 2 SSI, Lantus and Diabetic diet Based on the above, is there a diagnosis that correlates with these lab findings: Hypoglycemia Other (explain) Clinically unable to determine (explain) Thank you, Alberta Parikh, CCS, CDIS Use of terms such as suspected, likely, concern for, or probable (associated with a specific diagnosi s that is being evaluated, monitored, or treated as if it exists) are acceptable and can be coded in the inpatient se tting, when documented at the time of discharge. Please use your independent medical judgment in providing your response. THIS QUERY IS PART OF THE PERMANENT MEDICAL RECORD
[2023-10-03 07:46] LABS: LDH Pleural Fluid 1953
[2023-10-03 07:48] LABS: Total Protein Pleural Fluid 4.1
[2023-10-03] MEDS: Fluticasone/Umeclidinium/Vilanterol 200/62.5/25 BLST.W.DEV 1 PUFF INHALE (08:33)
--- NOTE | 2023-10-03 09:21 | PM.PNTS ---
Subjective Subjective Date of Service: 10/03/23 Interval history: Uneventful evening. Very good response from tPA yesterday. 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 If patient is stable and without symptoms, can DC home soon. Time Spent With Patient Time: Total time managing care of this patient today ____ minutes. Quality Stroke Does the patient have a stroke diagnosis?: No VTE Prior VTE?: No VTE Risk Level:: Medical - moderate - high VTE Device Contraindication: Treatment Not Indicated VTE Drug Contraindication: N/A - Med Ordered
--- NOTE | 2023-10-03 10:11 | PM.PNCARD ---
Subjective Subjective Date of Service: 10/03/23 Interval history: Seen examined at bedside. Echocardiography showed [id number] pericardial effusion along the right atrium. He previously had small effusion around the right atrium. No tamponade physiology. Physical Exam Vital Signs: Last Vital Signs Temp 97.1 F 10/03/23 07:07 Pulse 84 10/03/23 08:34 Resp 20 10/03/23 08:34 BP 134/72 10/03/23 07:07 Pulse Ox 96 10/03/23 07:07 O2 Del Method Room Air 10/03/23 07:07 O2 Flow Rate 2 10/03/23 03:17 BMI result Body Mass Index 28.7 GENERAL APPEARANCE: in no acute distress, pleasant. SKIN: no suspicious lesions, warm and dry. Right chest wall PermCath. HEART: no murmurs, regular rate and rhythm. LUNGS: clear to auscultation anteriorly. ABDOMEN: soft, nontender. EXTREMITIES: no edema. PERIPHERAL PULSES: equal. NEUROLOGIC: No gross deficits, AAO X 3 Objective Labs and Meds 10/02/23 05:33 10/02/23 05:33 Lab results: Laboratory Results - last 24 hr 10/02/23 10/02/23 10/02/23 13:49 15:40 17:14 POC Glucose 84 106 Pleural WBC 25.800 Pleural RBC 0.168 Pleural Neutrophils 96 Pleural Lymphocytes 4 Pleural Total Protein 4.1 Pleural LDH 195210/02/23 10/03/23 20:29 06:51 POC Glucose 168 H 117 H Pleural WBC Pleural RBC Pleural Neutrophils Pleural Lymphocytes Pleural Total Protein Pleural LDH Imaging Radiologist's impression: Impressions Chest X-Ray 10/03/23 08:25 IMPRESSION: Stable moderate right-sided pleural effusion. Progress Note: A&P Assessment and plan (1) ESRD on dialysis: Status: Acute (2) Recurrent pleural effusion: Status: Acute (3) Chronic pericardial effusion: Status: Acute Plan 68-year-old gentleman with known moderate cardiomyopathy and end-stage renal disease on hemodialysis. He is presenting for recurrent right-sided pleural effusion. There is concern for loculation as he already has a drain in place but still developed worsening effusion. There is some atelectasis in the right lung on CT scan. He also had a moderate-sized pericardial effusion seen on CT scan. Echocardiography has shown small pericardial effusion with txewa-gw-sasplyjo pocket around the right atrium. No tamponade physiology. He has pulmonary hypertension on the echocardiography too. His ejection fraction has improved on follow-up echocardiography. Optimize fluid level with hemodialysis. Thank you for allowing me to participate in the care of your patient. Please feel free to contact me if you have any questions. Time Spent With Patient Time: Total time managing care of this patient today ____ minutes. Progress Note: Quality Stroke Does the patient have a stroke diagnosis?: No Procedures Date of Service Date of Service: 10/03/23
[2023-10-03] MEDS: cefTRIAXone sodium 1 GM in 0.9 % Sodium Chloride 50 ML IV (10:51)
[2023-10-03] MEDS: 0.9 % Sodium Chloride Flush 3 ML SYRINGE IVFLUSH ×2 (10:51)
[2023-10-03] MEDS: Losartan Potassium 25 MG TABLET PO (10:52)
[2023-10-03] MEDS: NIFEdipine ER 90 MG TAB.ER.24 PO (10:52)
[2023-10-03] MEDS: guaiFENesin LA 600 MG TAB.ER.12H PO (10:53)
[2023-10-03] MEDS: Doxycycline Monohydrate 100 MG CAPSULE PO (10:54)
[2023-10-03] MEDS: Furosemide 40 MG TABLET 80 MG PO (10:54)
[2023-10-03] MEDS: Atorvastatin Calcium 40 MG TABLET PO (10:56)
[2023-10-03] MEDS: carvediloL 6.25 MG TABLET PO (10:56)
[2023-10-03] MEDS: hydrALAZINE HCl 50 MG TABLET PO ×2 (10:56→15:41)
[2023-10-03] MEDS: Pregabalin 75 MG CAPSULE PO (10:57)
[2023-10-03 11:05] LABS: Glucose, Whole Blood 137 mg/dL (60-115)
--- NOTE | 2023-10-03 11:10 | PM.DS ---
DS: Providers Provider Date of Service: 10/03/23 Date of admission: 09/30/23 14:59 Date of discharge: 10/03/23 Primary care physician: Unknown Physician Consults: 09/30/23 14:58 Consult to Cardiology Routine Consulting Provider: [facility] Reason for consultation: recurrent effusion, erin-cardial effusion Consult to Nephrology Routine Consulting Provider: [facility] Reason for consultation: ESRD on HD 10/02/23 08:01 Consult to Thoracic Surgery Routine Consulting Provider: Rohith Valdes Reason for consultation: loculated effusion for eval and rec. 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 The patient denies palpitations, fever, chills, cough, nausea, vomiting, diarrhea or urinary symptoms but reports dyspnea and orthopnea with decreased exercise tolerance. CXR showing increased right sided effusion. Pleurix cath in place but was only able to draine 100 cc of clear fluids. noticed to drop his O2 level to 80s while talking. to do walking O2 check while in ED. He will be admitted for further work up and treatment. Hospital course - Right sided pleural effusion w Hx systolic CHF, ESRD and chronic liver disease The problem is chronic, worse than last CXR with moderate pericardial effusion reported on CT scan. CT chest also suggestive of loculated effusion. Has Pleurix since July 2023 only drained 100cc of clear liquid in ED. evaluated by Cardiology who recommended to start Carvedilol, and ARBs . Echo showed improvement in EF to 50-55% with diastolic dysfunction. Evaluated by thoracic surgery who gave Alteplase\DNAse with fair response as >400 cc were drained. Fluid analysis showed exudative effusion likely as a result on pneumonia. Treated with IV antibiotics with a plan to follow as outpatient with PCP and Thoracic surgery. meanwhile will continue PO antibiotics to finish total of 10 days of antibiotics and continue VNA drainage of the Pleurix. - Community aquired pneumonia as reported by CT showing RLL infiltrate\atelactasis related to ongoing exudative effusion. Treated with Doxycycline and Ceftriaxone with fair response. fluid culture was sent. advised Incentive spirometry. - Fat stranding Rt kidney and ureter seen on CT scan could be 2/2 infection or passing stone which was not visualised. not making urine , covered with empirical Abx as no complaints of pain or burning urination. - Hepatomegally with nodularity seen on CT scan , concerning for chronic liver disease. normal LFT, with mildly elevated INR 1.2. hepatitis profile negative for infection. for further outpatient work up by PCP as needed. - Elevated Trop and BNP, related to ESRD not NSTEMI - ESRD on HD, Nephrology followed for MWF sessions Discharge plan Finish Doxycycline and Ceftin as prescribed Discontinue Lisinopril Start Losartan and Carvedilol for blood pressure control To follow with PCP and dr Valdes as outpatient for pleural effusion come back to the hospital for any worsening breathing or fever Time Attestation Discharge Coordination Time (in mins): 44 Quality: Safe Use of Opioids Does Pt have an Active Cancer Diagnosis on the Problem List?: No Quality: Stroke Does the patient have a stroke diagnosis?: No Physical Exam Vital Signs: Vital Signs: Last Vital Signs Temp 97.1 F 10/03/23 07:07 Pulse 84 10/03/23 08:34 Resp 20 10/03/23 08:34 BP 134/72 10/03/23 07:07 Pulse Ox 96 10/03/23 07:07 O2 Del Method Room Air 10/03/23 07:07 O2 Flow Rate 2 10/03/23 03:17 BMI result Body Mass Index 28.7 Const: Other: Constitutional : Awake, interactive, not in distress Neck : Normal inspection, Supple Cardiovascular : RRR, no JVP, no lower extremity edema Respiratory : improved RLL air movement with dullness on percussion, no wheezes , O2 sat 94% on RA , later right chest wall Pleurix cath covered with dressing Gastrointestinal: soft, lax, Normal bowel sounds, Non tender Skin : Warm, Dry, Permacath in place Neurological : Alert & oriented x3, No focal deficit DS: Data Data Completed and Pending Completed studies during hospitalization [Text1]: Procedures Drainage of Right Pleural Cavity, Percutaneous Approach (04/10/23) Performance of Urinary Filtration, Intermittent, Less than 6 Hours Per Day (04/10/23) Labs on day of discharge: Laboratory Results - last 24 hr 10/02/23 10/02/23 10/02/23 13:49 15:40 17:14 POC Glucose 84 106 Pleural WBC 25.800 Pleural RBC 0.168 Pleural Neutrophils 96 Pleural Lymphocytes 4 Pleural Total Protein 4.1 Pleural LDH 3 10/02/23 10/03/23 10/03/23 20:29 06:51 10:54 POC Glucose 168 H 117 H 137 H Pleural WBC Pleural RBC Pleural Neutrophils Pleural Lymphocytes Pleural Total Protein Pleural LDH Imaging Chest x-ray: Radiologist's impression: ITS Impressions Abdomen/Pelvis CT 09/30/23 11:28 IMPRESSION: 1. Compared to prior CT chest there has been decreased size of a moderate right pleural fluid collection with chest tube in place however which demonstrates new pleural thickening and stippled foci of gas throughout the fluid collection, raising the concern for the possibility of empyema, though the gas could be related to the underlying line, recommend correlation with drain output. There is right lower and right middle lobe volume loss with rounded subpleural consolidation favoring rounded atelectasis however continued attention on follow-up imaging. 2. There is mild asymmetric right lower pole perinephric fat stranding and periureteral fat stranding, which can be seen in the setting of recently passed stone, or ascending urinary tract infection/pyelonephritis, though pyelonephritis would be difficult to confirm given lack of intravenous contrast. No definite nephrolithiasis is identified though extensive atherosclerotic vascular calcification limits assessment. 3. Urinary bladder is thick-walled, though underdistended with mild infiltration of the perivesicular fat, recommend correlation with urinalysis and symptoms of cystitis. 4. Moderate pericardial effusion increased from prior CT chest. 5. Subtle nodularity of the hepatic contour, recommend correlation with risk factors for cirrhosis. Liver is enlarged measuring 19.7 cm in span, previously 19.4 cm. Chest X-Ray 09/30/23 11:38 IMPRESSION: 1. Moderate right pleural effusion increased from prior and with right basilar consolidation which may reflect atelectasis in the setting of effusion. 2. Streaky left midlung opacities favoring atelectasis. Chest X-Ray 10/01/23 08:30 IMPRESSION: Moderate right-sided pleural effusion is stable to mildly increased in size. Suspected Pleurx catheter projects over the right lung base. Chest X-Ray 10/03/23 08:25 IMPRESSION: Stable moderate right-sided pleural effusion. Discharge Plan Discharge Anticipated Discharge Date/Time: 10/03/23 10:55 Patient Disposition: Home Health Service Discharge Diagnosis: Pleural effusion Referrals: [facility] [Outside] - 1 Week Physician,Unknown J [Physician] - 1 Week Discharge Medications: New carvedilol 6.25 mg Tablet 6.25 mg PO BID Qty: 60 0RF Protocol: Hold for SBP/HR < HOLD for SBP < : 90 HOLD for HR < : 60 benzonatate 100 mg Capsule 100 mg PO TID PRN (Reason: Cough) Qty: 14 0RF doxycycline monohydrate 100 mg Capsule 100 mg PO Q12H Qty: 12 0RF losartan 25 mg Tablet 25 mg PO DAILY Qty: 90 0RF Protocol: Hold for SBP< HOLD for SBP < : 90 cefuroxime axetil 500 mg tablet 500 mg PO BID Qty: 12 0RF Continued atorvastatin 40 mg tablet 40 mg PO DAILY ipratropium-albuterol 0.5 mg-3 mg(2.5 mg base)/3 mL solution for nebulization 3 ml INHALATION Q4H PRN (Reason: Wheezing) sennosides-docusate sodium [Senna-Time S] 8.6-50 mg tablet 1 tab PO DAILY PRN (Reason: Constipation) allopurinol 100 mg tablet 100 mg PO MOWEFR@1600 Rx Instructions: GIVE AFTER DIALYSIS furosemide 80 mg tablet 80 mg PO DAILY omeprazole 20 mg capsule,delayed release(DR/EC) 20 mg PO DAILY@0630 doxazosin 4 mg tablet 4 mg PO BEDTIME albuterol sulfate 90 mcg/actuation HFA aerosol inhaler 2 puff INHALATION Q4H PRN (Reason: Shortness Of Breath) hydralazine 50 mg tablet 50 mg PO TID Trelegy Ellipta 200-62.5-25 mcg blister with device 1 ea INHALATION DAILY insulin lispro 100 unit/mL insulin pen 1 sliding scale dose subcut TIDAC insulin glargine [Lantus Solostar U-100 Insulin] 100 unit/mL (3 mL) insulin pen 22 unit subcut BEDTIME aspirin 81 mg tablet,delayed release (DR/EC) 81 mg PO DAILY polyethylene glycol 3350 17 gram/dose powder 17 g PO DAILY PRN (Reason: constipation) pregabalin 75 mg capsule 75 mg PO DAILY nifedipine 90 mg tablet extended release 90 mg PO BID Discontinued lisinopril 10 mg tablet 10 mg PO DAILY Discharge Orders: Discharge Order (Routine); Ordered 10/03/23 Ordered By: Edgardo Winkler Diet: Low salt diet Activity on Discharge: As tolerated Stand Alone Forms: Patient Portal Discharge page Print Language: [place] Care Plan Goals: Finish Doxycycline and Ceftin as prescribed Discontinue Lisinopril Start Losartan and Carvedilol for blood pressure control To follow with PCP and dr Valdes as outpatient for pleural effusion come back to the hospital for any worsening breathing or fever Health Concerns: Read below Plan of Treatment: Read below Assessment: Read below Discharge Date/Time: 10/03/23 18:10
--- NOTE | 2023-10-03 12:26 | P.PNNP_ITS ---
Subjective Subjective Date of Service: 10/03/23 Interval history: Seen and examined Physical Exam 2 Vital Signs: Vital Signs: Last Vital Signs Temp 97.1 F 10/03/23 07:07 Pulse 72 10/03/23 10:56 Resp 20 10/03/23 08:34 BP 156/76 H 10/03/23 10:56 Pulse Ox 96 10/03/23 07:07 O2 Del Method Room Air 10/03/23 07:07 O2 Flow Rate 2 10/03/23 03:17 BMI result Body Mass Index 28.7 Const: Other: Constitutional : Awake, interactive, not in distress Neck : Normal inspection, Supple Cardiovascular : RRR, no JVP, no lower extremity edema Respiratory : decrease RLL air movement with dullness on percussion, no wheezes , O2 sat 88-94% on RA , later right chest wall Pleurix cath covered with dressing Gastrointestinal: soft, lax, Normal bowel sounds, Non tender Skin : Warm, Dry, Permacath in place Neurological : Alert & oriented x3, No focal deficit General: comfortable and no acute distress Orientation/consciousness: p atient oriented x3 HEENT: Other: Unremarkable Head: Yes normal to inspection Neck: Neck: Yes normal visual inspection Chest: Chest palpation & inspection: normal inspection of the chest Resp: Other: some rhonchi left side Cardio: Palpation: normal PMI Heart sounds: S1 normal heart sound present, S2 normal heart sound present, no gallops, no murmurs and no rubs GI: Palpation (GI): Soft to palpation Back/Spine/Pelvis: Other: unremarkable Skin: General skin exam: no rashes or lesions noted Neuro: General: patient oriented x3 Extrem: General: Yes normal to inspection Psych: Mental Status: mental status grossly normal Objective Data Labs 10/02/23 05:33 10/02/23 05:33 Labs: Laboratory Results - last 24 hr 10/02/23 10/02/23 10/02/23 13:49 15:40 17:14 POC Glucose 84 106 Pleural WBC 25.800 Pleural RBC 0.168 Pleural Neutrophils 96 Pleural Lymphocytes 4 Pleural Total Protein 4.1 Pleural LDH 195210/02/23 10/03/23 10/03/23 20:29 06:51 10:54 POC Glucose 168 H 117 H 137 H Pleural WBC Pleural RBC Pleural Neutrophils Pleural Lymphocytes Pleural Total Protein Pleural LDH Procedures Date of Service Date of Service: 10/03/23 Assessment & Plan Assessment and plan (1) Pneumonia: Status: Acute (2) Chronic combined systolic and diastolic CHF (congestive heart failure): Status: Acute (3) Chronic pericardial effusion: Status: Acute (4) Recurrent pleural effusion: Status: Acute Plan ESRD mwf; HD today ( I saw him on HD today and he is feeling better) Pl effussion: being eval by IR and Thoracic Severe HTN: vol overloaded driven incr BP HFrEF: seen by cards REC: cont HD; start ARB; may need extra UF--will reassess daily; avoid aldactone at this time ok to d/c and I will arrange outpt HD Will follow w team Time Spent With Patient Time: Total time managing care of this patient today ____ minutes. Progress Note: Quality Stroke Does the patient have a stroke diagnosis?: No
--- NOTE | 2023-10-03 15:00 | MHC.CM.PN ---
Pt. has been medically cleared for DC, he will go home via family transport and resume services from [facility].
[2023-10-03 16:15] LABS: Glucose, Whole Blood 145 mg/dL (60-115)
== END 2023-10-03 18:10 | disposition home health service (06) | DRG 193 ==
LOC: HO.ED 14:18 → HO.EDOVER 15:18 → HO.IMC 15:25
PROVIDERS: Admitting Provider Student in an Organized Health Care Education/Training Program; Emergency Provider Emergency Medicine; PCP Internal Medicine; Visit Provider Student in an Organized Health Care Education/Training Program
DX: J18.9 Pneumonia, unspecified organism (principal); N18.6 End stage renal disease; I13.2 Hypertensive heart and chronic kidney disease with heart failure and with stage 5 chronic kidney disease, or end stage renal disease; J98.11 Atelectasis; I50.42 Chronic combined systolic (congestive) and diastolic (congestive) heart failure; I42.9 Cardiomyopathy, unspecified; J91.8 Pleural effusion in other conditions classified elsewhere; K74.60 Unspecified cirrhosis of liver; G47.33 Obstructive sleep apnea (adult) (pediatric); E11.22 Type 2 diabetes mellitus with diabetic chronic kidney disease; E11.649 Type 2 diabetes mellitus with hypoglycemia without coma; Z99.2 Dependence on renal dialysis; Z79.4 Long term (current) use of insulin; Z79.82 Long term (current) use of aspirin; Z79.899 Other long term (current) drug therapy
CPT/HCPCS: 36415; 71045; 71046; 74176; 80048; 80076; 82947; 83615; 83690; 83735; 83880; 84157; 84484; 85025; 85027; 85610; 86704; 86706; 86709; 86803; 87070; 87073; 87077; 87186; 87205; 87340; 89051; 90999; 93005; 93306; 97162; 97530; 99285; J0696; J1644; J1940; J2270; J2997

== ENCOUNTER 2023-09-30 14:59 | Outpatient (BNV) | payer MEDICARE, SELFPAY | END 2023-10-02 07:00 | PROVIDERS: Admitting Provider Student in an Organized Health Care Education/Training Program; Emergency Provider Emergency Medicine; Visit Provider Internal Medicine Cardiovascular Disease | DX: I36.1 Nonrheumatic tricuspid (valve) insufficiency (principal); I31.39 Other pericardial effusion (noninflammatory); R93.1 Abnormal findings on diagnostic imaging of heart and coronary circulation; I27.20 Pulmonary hypertension, unspecified | CPT/HCPCS: 93306 ==

== ENCOUNTER → 2023-09-30 14:59 | Outpatient (BNV) | payer MEDICARE, SELFPAY | PROVIDERS: Admitting Provider Student in an Organized Health Care Education/Training Program; Emergency Provider Emergency Medicine; Visit Provider Internal Medicine | DX: N18.6 End stage renal disease (principal); Z99.2 Dependence on renal dialysis; J90 Pleural effusion, not elsewhere classified; I31.39 Other pericardial effusion (noninflammatory) | CPT/HCPCS: 93010; 99223; 99232 ==

== ENCOUNTER → 2023-09-30 14:59 | Outpatient (BNV) | payer MEDICARE, SELFPAY | PROVIDERS: Admitting Provider Student in an Organized Health Care Education/Training Program; Emergency Provider Emergency Medicine; Visit Provider Student in an Organized Health Care Education/Training Program | DX: I31.39 Other pericardial effusion (noninflammatory) (principal); J90 Pleural effusion, not elsewhere classified; Z92.82 Status post administration of tPA (rtPA) in a different facility within the last 24 hours prior to admission to current facility; J18.9 Pneumonia, unspecified organism | CPT/HCPCS: 99222; 99232; 99239 ==

== ENCOUNTER → 2023-09-30 14:59 | Outpatient (BNV) | payer MEDICARE, SELFPAY | PROVIDERS: Admitting Provider Student in an Organized Health Care Education/Training Program; Emergency Provider Emergency Medicine; Visit Provider Physician Assistant Surgical | DX: J90 Pleural effusion, not elsewhere classified (principal); Z92.82 Status post administration of tPA (rtPA) in a different facility within the last 24 hours prior to admission to current facility | CPT/HCPCS: 99222; 99232 ==

== ENCOUNTER 2023-10-17 09:13 | Outpatient (REF) | payer MEDICARE, SELFPAY ==
--- NOTE | ~2023-10-17 | XR_ITS ---
EXAMINATION: XR chest 2V CLINICAL INFORMATION: J90 - Pleural effusion, not elsewhere classified COMPARISON: Chest radiograph 10/03/2023 TECHNIQUE: 2 views of the chest FINDINGS/ XR/XR chest 2V IMPRESSION: Right lung base consolidation, unchanged from prior study. No pneumothorax. Small to moderate right pleural effusion. Unchanged cardiomediastinal silhouette. Right CVC tip projects over the cavoatrial junction. Electronically signed by: Patsy Espinal MD 11/14/2023 06:18 PM EDT
== END 2023-10-17 09:14 | disposition home or self-care (01) ==
LOC: HO.XRAY 09:13
PROVIDERS: Visit Provider Surgery
DX: J90 Pleural effusion, not elsewhere classified (principal)
CPT/HCPCS: 71046; 99212

== ENCOUNTER 2023-10-17 09:13 | Outpatient (AMB) | payer MEDICARE, SELFPAY ==
[2023-10-17 09:36] VITALS: BP 194/90; PULSE 77
--- NOTE | 2023-10-17 09:36 | MHC.OFFVIS ---
Vital Signs 10/17/23 09:36 Weight 172 lb BP 194/90 H Blood Pressure Location Rt brachial Position Sitting Pulse 77 Intake Visit Reasons: Pleurx cath removal Intake Note: Patient here for pleurx cath removal. Patient c/o: will need to get supplies if catheter not remove today. 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 His visiting nurse the documents that he has minimal output after the last few visits. Patient had a recent hospitalization because of occlusion of the tube which was managed with tPA. Patient has no respiratory symptoms during the day but at night when he sleeps he is occasionally short of breath. [facility] Medical History Arthritis Asthma Restless leg syndrome Acute on chronic systolic and diastolic heart failure, NYHA class 3 Anemia Occlusive thrombus Pulmonary edema ROBERT (obstructive sleep apnea) Type 2 diabetes mellitus Hyperlipidemia Hypertension A-V fistula ESRD on dialysis Falling Surgical History Pleural effusion on right (07/13/23) History of surgery H/O colonoscopy Family History Father No problems noted. Mother No problems noted. Social History Household Members: Children Household Members Other:: son Housing: Apartment Do you presently have visiting nurse or other home services: No Alcohol intake: never Comment: counts correct Patient Tobacco Use Status: Former Tobacco user Tobacco use type: Cigarette service: No Physical Exam Vital Signs: Last Vital Signs Pulse 77 10/17/23 09:36 BP 194/90 H 10/17/23 09:36 Chest Other: External portion of the PleurX catheter was clean dry and intact. Breath sounds bilaterally diminished right base Assessment & Plan Assessment & Plan (1) Exudative pleural effusion: Code(s): J90 - Pleural effusion, not elsewhere classified Category: Surgical Plan: Were plans to obtain an x-ray which has not been done if in a few weeks time to assess whether there is any fluid that needs draining, is a loculated, is the tube occluded, or Can the PleurX tube actually be removed. X-ray will be done at present and patient was returned with his family member after and based on the chest x-ray results we will determine what the next course of action is. All questions answered.. I discussed with Dr. Vinod Mane The challenge that I am having regarding interventional radiology and tPA infusion for the patient for either PleurX catheter occlusion or loculated fluid collection. He is going to review this issue with and the see if he can facilitate outpatient management for this with Interventional Radiology. As things evolve, documentation and arrangements will be appropriately made. Orders: Orders XR chest 2V 10/17/23 J90 - Pleural effusion, not elsewhere classified Coding Level of Care Code Est Pt Level 4 (87876) Diagnoses Exudative pleural effusion J90
== END 2023-10-17 09:53 | disposition home or self-care (01) ==
PROVIDERS: Visit Provider Surgery
DX: J90 Pleural effusion, not elsewhere classified (principal)
CPT/HCPCS: 99213

== ENCOUNTER 2023-10-23 09:07 | Day surgery (SDC) | payer MEDICARE, SELFPAY ==
--- NOTE | ~2023-10-23 | XR_ITS ---
EXAMINATION: XR CHEST CLINICAL INFORMATION: s/p tpa of right Pleurx COMPARISON: Chest radiograph 10/17/2023 TECHNIQUE: One view of the chest FINDINGS: Lines and tubes: Right internal jugular central venous catheter tip terminates at the cavoatrial junction. Right basilar directed chest tube which appears slightly kinked approximately 3.5 cm medial to the chest wall. Left subclavian and axillary vascular stent. Similar moderate right pleural effusion with right basilar consolidation. Increasing streaky left basilar opacities which may reflect worsening atelectasis. No pneumothorax. Unchanged cardiomediastinal silhouette. XR/XR chest 1V IMPRESSION: 1. Similar moderate right pleural effusion with right basilar consolidation. Increasing streaky left basilar opacities which may reflect worsening atelectasis. 2. Right basilar directed chest tube tube which appears slightly kinked approximately 3.5 cm medial to the chest wall. Electronically signed by: Belkys Andrade MD 11/16/2023 04:35 PM EDT
--- NOTE | ~2023-10-23 | FL_ITS ---
FLUOROSCOPIC EVALUATION OF RIGHT PLEURX CATHETER. Indication: Poorly draining right Pleurx catheter. Moderate pleural effusion on chest x-ray. Risks and benefits and possible complications were discussed with the patient and the consent form was signed. Patient was placed supine on the fluoroscopy table. A fluoroscopic spot image of the chest demonstrated good position of the right Pleurx catheter. A total of 10 mg of alteplase was administered through the catheter. The patient was brought to the post anesthesia recovery area for observation. After 2 hours of the TPA instillation, the catheter was connected the drainage catheter system and a total of 300 mL of dark nonclotting blood tinge fluid was removed from the right chest. A subsequent chest x-ray demonstrated a small improvement in the right lung field opacity. The patient was then discharged home. These events were communicated to the patient's thoracic surgeon. Total fluoroscopy time: 0.1 min DAP: 139.1 uGy-m2 FL/FL fluoroscopy <1hr Impression: Fluoroscopic evaluation of right Pleurx catheter with instillation of TPA. A total of 300 mL of dark nonclotting blood tinged fluid was removed from the right chest cavity. These events were communicated to the thoracic surgeon. A follow-up CT scan of the chest is recommended to determine the stent of the remaining loculated pleural effusion. This procedure was performed by Jalen Becerra PA-C and supervised by Dr. Van. Electronically signed by: Morro Van MD 10/26/2023 01:25 PM EDT
[2023-10-23 09:57] VITALS: BMI 28.8
[2023-10-23 10:37] LABS: Glucose, Whole Blood 136 mg/dL (60-115)
[2023-10-23 13:00] VITALS: BP 142/63; PULSE 58; RESP 16; TEMP 36.4; O2SAT 95
[2023-10-23 13:15] VITALS: BP 147/59; PULSE 57; RESP 16; O2SAT 95
[2023-10-23 13:45] VITALS: BP 154/65; PULSE 58; RESP 16; O2SAT 95
[2023-10-23 14:15] VITALS: BP 158/71; PULSE 60; RESP 16; TEMP 36.2; O2SAT 95
== END 2023-10-23 14:20 | disposition home or self-care (01) ==
LOC: HO.SSS 09:08
PROVIDERS: Hospitalist; Visit Provider Surgery
DX: J90 Pleural effusion, not elsewhere classified (principal); I12.0 Hypertensive chronic kidney disease with stage 5 chronic kidney disease or end stage renal disease; E11.22 Type 2 diabetes mellitus with diabetic chronic kidney disease; N18.6 End stage renal disease; J45.909 Unspecified asthma, uncomplicated; Z99.2 Dependence on renal dialysis
CPT/HCPCS: 32561; 71045; 76000; 82947; J1642; J2997; Q9967

== ENCOUNTER → 2023-10-23 10:30 | Outpatient (BNV) | payer MEDICARE, SELFPAY | PROVIDERS: Visit Provider Radiology Diagnostic Radiology | DX: J90 Pleural effusion, not elsewhere classified (principal); Z97.8 Presence of other specified devices | CPT/HCPCS: 76000 ==

== ENCOUNTER 2023-10-29 10:23 | Emergency (ER) | payer MEDICARE, SELFPAY ==
--- NOTE | ~2023-10-29 | XR_ITS ---
EXAMINATION: XR CHEST CLINICAL INFORMATION: Dyspnea, suspect right-sided pleural effusion. COMPARISON: Chest radiograph 10/23/2023. TECHNIQUE: Frontal view of the chest was obtained. FINDINGS: Stable enlargement of the cardiomediastinal silhouette. Large bore dual-lumen right IJ CVC tip projects over the expected location of the superior cavoatrial junction. Slightly increased airspace opacities in the right mid to lower lung thomas with unchanged moderate sized right-sided pleural effusion. Unchanged positioning of a right-sided chest tube overlying the lower right lung. Stable streaky opacities in the left lower lung field, likely subsegmental atelectasis. No pneumothorax. Redemonstration of vascular stent overlying the left axillary/brachial region. No acute osseous findings. XR/XR chest 1V IMPRESSION: Slightly increased airspace opacities in the right mid to lower lung field with unchanged moderate sized right-sided pleural effusion. Electronically signed by: Codie Manley MD 10/29/2023 12:19 PM EDT
--- NOTE | ~2023-10-29 | CT_ITS ---
EXAMINATION: CT CHEST WITHOUT CONTRAST CLINICAL INFORMATION: Right catheter repeat Lana age failure. COMPARISON: April 10, 2023 TECHNIQUE: Multidetector volumetric CT imaging of the chest was done. Axial MIP volume rendering provided. Sagittal and coronal reformatted images were obtained. This CT examination was performed using dose optimization techniques as appropriate, variously including the following: *Automated exposure control *Adjustment of mA and/or kV according to patient size (this includes techniques or standardized protocols for targeted exams where dose is matched to indication/reason for exam; i.e. extremities or head) *Use of iterative reconstruction technique DLP: 354 mGy-cm FINDINGS: LUNGS/PLEURA: A presumed tunneled drainage catheter enters the pleural space between the lateral aspects of the right seventh and eighth ribs. The catheter appears to be kinked anteriorly in the pleural space (image 39, series 6). Small to moderate amount of right pleural fluid with diffuse pleural thickening. Associated air space disease involving much of the right lower and middle lobes. These findings appear similar compared with April 10, 2023. Mild left basilar dependent airspace disease, worse. Patent central bronchi. MEDIASTINUM: Mild cardiomegaly. Suspect decreased blood pool density, raising suspicion for anemia. Trace pericardial fluid. No evidence of adenopathy by size criteria. Tip of a right internal jugular tunneled dialysis catheter lies at the junction of the superior vena cava and right atrium. CORONARY ARTERY CALCIFICATION: Severe. AXILLA/CHEST WALL/LOWER NECK: No lymphadenopathy by size criteria. A metallic stent projecting over the left subclavian/lower neck region is partially imaged. Bilateral gynecomastia. UPPER ABDOMEN: Unremarkable. OSSEOUS STRUCTURES: Mild degenerative changes of the spine. Osteoarthritis of the glenohumeral joints. CT/CT chest wo IV con IMPRESSION: Presumed right tunneled drainage catheter appears to be kinked anteriorly in the pleural space. Small to moderate amount of right pleural fluid with diffuse pleural thickening. Associated air space disease involving much of the right lower and middle lobes. These findings appear similar compared with April 10, 2023. Mild left basilar dependent airspace disease, worse. Additional findings, as above. Electronically signed by: Richar Ponce MD 10/29/2023 02:47 PM EDT
[2023-10-29 10:29] VITALS: BP 149/72; PULSE 74; RESP 20; TEMP 36.8; O2SAT 92; BMI 28.9
[2023-10-29 10:52] VITALS: BP 149/72; PULSE 74; RESP 20; TEMP 36.8; O2SAT 92
[2023-10-29] MEDS: oxyCODONE HCl Immed Release 5 MG TABLET PO (11:04)
--- NOTE | 2023-10-29 11:11 | ED_ITS ---
HPI - SOB/Dyspnea General Chief Complaint: General Medical Stated Complaint: Water in lungs Time Seen by Provider: 10/29/23 10:40 Source: patient Mode of arrival: ambulatory Limitations: no limitations History of Present Illness ED Provider: SHAE HILL Narrative: 68 yo male with PMH of ESRD on HD MWF on transplant list, DM2 on insulin, HTN, HLD, ROBERT on CPAP, CHF EF 35%, hx of R pleural effusion s/p thoracentesis in May not on blood thinners dealing with recurrent issues of PleurX not draining - just seen 10/22 sp tPa with Anup Becerra PA IR for lack of drainage. Patient then had 300mL removed, at that time IR had recommended follow up CT scan to further assess catheter. He comes in today with c/o not having supplies at home so for 7 days VNA would not drain catheter has pain on that side and feels winded. He also is on home O2 and that ran out and family is not sure they think the new O2 is coming Monday elicited complaint: shortness of breath Pertinent past history: other (R pleural effusion) Onset (ago): day(s) (6) Context: other Timing: constant Severity: moderate Exacerbating factors: lying flat, exertion and movement Relieving factors: oxygen and upright position Known history of: other Associated symptoms: denies other symptoms Treatment prior to arrival: none Related Data Home Medications ?Medication ?Instructions ?Recorded ?Confirmed albuterol sulfate 90 mcg/actuation 2 puff inhalation Q4H PRN 04/19/22 10/18/23 aerosol inhaler Shortness Of Breath allopurinol 100 mg tablet 100 mg PO MOWEFR@1600 04/19/22 10/18/23 atorvastatin 40 mg tablet 40 mg PO DAILY 04/19/22 10/18/23 doxazosin 4 mg tablet 4 mg PO BEDTIME 04/19/22 10/18/23 furosemide 80 mg tablet 80 mg PO DAILY 04/19/22 10/18/23 ipratropium 0.5 mg-albuterol 3 mg 3 ml inhalation Q4H PRN Wheezing 04/19/22 10/18/23 (2.5 mg base)/3 mL nebulization soln omeprazole 20 mg capsule,delayed 20 mg PO DAILY@0630 04/19/22 10/18/23 release sennosides 8.6 mg-docusate sodium 1 tab PO DAILY PRN Constipation 04/19/22 10/18/23 50 mg tablet (Senna-Time S) insulin glargine 100 unit/mL (3 22 unit subcut BEDTIME 04/10/23 10/18/23 mL) subcutaneous pen (Lantus Solostar U-100 Insulin) insulin lispro 100 unit/mL 1 sliding scale dose subcut TIDAC 04/10/23 10/18/23 subcutaneous pen aspirin 81 mg tablet,delayed 81 mg PO DAILY 06/20/23 10/18/23 release nifedipine 90 mg tablet,extended 90 mg PO BID 06/20/23 10/18/23 release pregabalin 75 mg capsule 75 mg PO DAILY 06/20/23 10/18/23 fluticasone fur. 200 mcg-umeclid 1 ea inhalation DAILY 09/30/23 10/18/23 62.5 mcg-vilant 25 mcg inhalat.powder (Trelegy Ellipta) hydralazine 50 mg tablet 50 mg PO TID 09/30/23 10/18/23 Previous Rx's ?Medication ?Instructions ?Recorded carvedilol 6.25 mg tablet 6.25 mg PO BID #60 tabs 10/03/23 doxycycline monohydrate 100 mg 100 mg PO Q12H #12 caps 10/03/23 capsule losartan 25 mg tablet 25 mg PO DAILY #90 tabs 10/03/23 PleurX catheter drainage kits #10 ea 10/17/23 Allergies Allergy/AdvReac Type Severity Reaction Status Date / Time No Known Allergies Allergy Verified 10/29/23 10:34 Review of Systems 2 Review of Systems: Constitutional : No Fever, No Chills ENT/Mouth : No sore throat, No Rhinorrhea, No Swallowing Difficulty Eyes: No Eye Pain, No Swelling, No Redness Cardiovascular : No Chest Pain, positive SOB, No Orthopnea, no Edema Respiratory : No Cough, No Sputum, No Wheezing, positive dyspnea Gastrointestinal : No Nausea, No Vomiting, No Diarrhea, No abdominal Pain, No Hematochezia, No Melena Genitourinary : No Dysuria, No Urinary Frequency, No Hematuria Musculoskeletal : No joint pain, No Myalgias Skin : No Skin Lesions, No rash Neuro : No Weakness, No Numbness, No Dizziness, No Headache Psych : No Anxiety/Panic, No Depression All other systems reviewed and are negative PMFSH Past Medical History Attestation statement: The following information was validated with the patient. Source: old records reviewed Medical History Chronic combined systolic and diastolic CHF (congestive heart failure) Chronic pericardial effusion Arthritis Asthma Restless leg syndrome Acute on chronic systolic and diastolic heart failure, NYHA class 3 Anemia Occlusive thrombus Pulmonary edema ROBERT (obstructive sleep apnea) Type 2 diabetes mellitus Hyperlipidemia Hypertension A-V fistula ESRD on dialysis Falling Surgical History Recurrent pleural effusion Pleural effusion on right (07/13/23) History of surgery H/O colonoscopy Family History Family History Father No problems noted. Mother No problems noted. Social History Social History Household Members: Children Household Members Other:: son Housing: Apartment Do you presently have visiting nurse or other home services: No Alcohol intake: never Comment: counts correct Patient Tobacco Use Status: Former Tobacco user Tobacco use type: Cigarette Advance Directives: No Advance Directives Information Provided: No Do you have a plan to hurt others: No Plan service: No Physical Exam 2 Vital Signs: Vital Signs: Last Vital Signs Temp 97.5 F 10/29/23 14:00 Pulse 83 10/29/23 14:00 Resp 14 10/29/23 14:00 BP 126/63 10/29/23 14:00 Pulse Ox 93 10/29/23 14:00 O2 Del Method Nasal Cannula 10/29/23 14:00 O2 Flow Rate 2 10/29/23 14:00 BMI result Body Mass Index 28.9 Appearance: Alert. Oriented X3. No acute distress. Eyes: Pupils equal, round and reactive to light. ENT: Pharynx normal. Neck: Normal inspection. Neck supple. CVS: Normal heart rate and rhythm. Pulses normal. Respiratory: No respiratory distress. Breath sounds diminished R base Abdomen: Soft and nontender. Skin: Skin warm and dry. Normal skin color. Normal skin turgor. Extremities: No lower extremity edema. No calf ttp Neuro: Oriented X 3. No motor deficit. No sensory deficit. Course Course Course Narrative: 275mL blood from pleurx no pain talked to CM - [employer] drop off 10/29 Medications Administered Discontinued Medications Generic Name Dose Route Start Last Admin Trade Name Veena PRN Reason Stop Dose Admin Oxycodone HCl 5 mg 10/29/23 10:56 10/29/23 11:04 Oxycodone Hcl Immed Release 5 Mg Tablet PO 10/29/23 10:57 5 mg ONCE ONE Administration Medical Decision Making Medical Decision Making [facility] Narrative: 68 yo male with PMH of ESRD on HD MWF on transplant list, DM2 on insulin, HTN, HLD, ROBERT on CPAP, CHF EF 35%, hx of R pleural effusion s/p thoracentesis in May not on blood thinners here with recurrent R sided effusion and dyspnea in setting of lack of supplies for VNA so no drainage x 7 days. Just had issue and needed tPA on 10/[address] scan be done - I am ordering that now. He has no infectious symptoms. Will obtain CT scan, drain, and then discuss with RT and CM about O2 supplies at home. Differential Diagnosis Differential Diagnoses: The differential diagnosis associated with the presentation includes effusion, pleurX cath issue Admission/Observation Consideration of admission/observation: Escalation of care including admission/observation considered O2 stable, feels much better - given supplies x 1 for VNA [employer] tank to go home with [employer] to come 26th per [facility] Consult Healthcare Provider Management of the patient was discussed with: Taste Tester (Lucio aware follow up in clinic aware of all findings including 275 of blood in catheter after tPa hemoglobin stable has no complaints) Lab Data [facility] Lab Attestation statement: I reviewed the patient's lab results. 10/29/23 13:44 10/29/23 13:44 Labs: Lab Results 10/29/23 Range/Units 13:44 WBC 9.1 (4.8-10.8) X10*3/uL RBC 4.30 L (4.60-5.80) X10*6/uL Hgb 10.0 L (14.0-18.0) g/dl Hct 32.9 L (42.0-52.0) % MCV 76.5 L (80.0-98.0) fL MCH 23.3 L (27.0-33.0) pg MCHC 30.4 L (31.0-36.0) g/dl RDW 16.2 H (11.0-16.0) % Plt Count 230 (160-400) X10*3/uL MPV 10.6 (9.4-12.4) fL Immature Gran % (Auto) 0.5 H (0.0-0.4) % Neut % (Auto) 76.3 H (45-73) % Lymph % (Auto) 11.9 L (20-40) % Mower % (Auto) 9.6 (2-11) % Eos % (Auto) 1.3 (0-4) % Baso % (Auto) 0.4 (0-2) % Lymph # (Auto) 1.1 L (1.2-4.9) X10*3/uL Mower # (Auto) 0.9 (0.1-1.2) X10*3/uL Eos # (Auto) 0.1 (0.0-0.4) X10*3/uL Baso # (Auto) 0.0 (0.0-0.2) X10*3/uL Abs Immat Gran (auto) 0.05 H (0.00-0.03) X10*3/uL Absolute Neuts (auto) 7.0 (2.0-8.3) x10*3/uL Absolute Nucleated RBC 0.000 (0.0-0.012) X10*3/uL Nucleated RBC % (auto) 0.0 (0.0-0.2) /100WBC PT 13.5 H (11.1-13.3) SEC INR 1.1 (0.9-1.1) Sodium 143 (135-145) mmol/L Potassium 4.5 (3.3-5.1) mmol/L Chloride 104 (96-108) mmol/L Carbon Dioxide 23 (22-29) mmol/L Anion Gap 21 H (12-20) BUN 53 H (9-16) mg/dL Creatinine 9.46 H* (0.5-1.4) mg/dL Estim Creat Clear Calc 7.3 Estimated GFR 6 Random Glucose 285 H (60-115) mg/dL Calcium 9.2 (8.4-10.2) mg/dL Independent Interpretation I performed an independent interpretation of an: Plain X-Ray and CT Scan (stable, kinked line) Radiology Impression Discussion of test interpretation with radiology: I have reviewed the radiologist's reading. Independent Historian Clinical information obtained from an independent historian. History obtained from or confirmed by: Other (family) External Record Review External record reviewed: Inpatient record, Office record and Prior outpatient radiology Discharge Plan Discharge Clinical Impression: Recurrent pleural effusion on right Patient Disposition: Home, Self-Care Instructions: Pleural Effusion (ED) Additional Instructions: follow up with Dr. Valdes call office this week given supply to drain - 3 days from now drained 275mL on Monday to come on the given new tank today return for any worsening symptoms or concerns. Prescriptions: No Action (DME) PleurX catheter drainage kits 1000cc kits See Rx Instructions .Route .MEDSUPPLY Qty: 10 6RF Rx Instructions: As directed atorvastatin 40 mg tablet 40 mg PO DAILY ipratropium-albuterol 0.5 mg-3 mg(2.5 mg base)/3 mL solution for nebulization 3 ml INHALATION Q4H PRN (Reason: Wheezing) sennosides-docusate sodium [Senna-Time S] 8.6-50 mg tablet 1 tab PO DAILY PRN (Reason: Constipation) allopurinol 100 mg tablet 100 mg PO MOWEFR@1600 Rx Instructions: GIVE AFTER DIALYSIS furosemide 80 mg tablet 80 mg PO DAILY omeprazole 20 mg capsule,delayed release(DR/EC) 20 mg PO DAILY@0630 doxazosin 4 mg tablet 4 mg PO BEDTIME albuterol sulfate 90 mcg/actuation HFA aerosol inhaler 2 puff INHALATION Q4H PRN (Reason: Shortness Of Breath) hydralazine 50 mg tablet 50 mg PO TID Trelegy Ellipta 200-62.5-25 mcg blister with device 1 ea INHALATION DAILY carvedilol 6.25 mg Tablet 6.25 mg PO BID Qty: 60 0RF Protocol: Hold for SBP/HR < HOLD for SBP < : 90 HOLD for HR < : 60 doxycycline monohydrate 100 mg Capsule 100 mg PO Q12H Qty: 12 0RF losartan 25 mg Tablet 25 mg PO DAILY Qty: 90 0RF Protocol: Hold for SBP< HOLD for SBP < : 90 insulin lispro 100 unit/mL insulin pen 1 sliding scale dose subcut TIDAC insulin glargine [Lantus Solostar U-100 Insulin] 100 unit/mL (3 mL) insulin pen 22 unit subcut BEDTIME aspirin 81 mg tablet,delayed release (DR/EC) 81 mg PO DAILY pregabalin 75 mg capsule 75 mg PO DAILY nifedipine 90 mg tablet extended release 90 mg PO BID Referrals: Rohith Valdes MD [Physician] - Print Language: Hungarian
[2023-10-29 12:31] VITALS: BP 142/64; PULSE 84; RESP 20; TEMP 36.5; O2SAT 96
--- NOTE | 2023-10-29 12:53 | MHC.EDTECH ---
This tech checked pt vital signs, pt resting quietly, call montilla within reach.
--- NOTE | 2023-10-29 13:31 | PC.NURSE ---
This RN drained pleurx drain, 275cc of magalys red blood drained easily. Pt tolerated well. aware.
[2023-10-29 13:48] LABS: MANUAL DIFF FLAG NO
[2023-10-29 13:49] LABS: Basophils Percent Auto 0.4 % (0-2); Eosinophils Absolute Auto 0.1 X10*3/uL (0.0-0.4); Eosinophils Percent Auto 1.3 % (0-4); Hematocrit 32.9 % (42.0-52.0); Imm Gran Abs Auto 0.05 X10*3/uL (0.00-0.03); Imm Gran Pct Auto 0.5 % (0.0-0.4); Lymphocytes Absolute Auto 1.1 X10*3/uL (1.2-4.9); Lymphocytes Percent Auto 11.9 % (20-40); Mean Corpuscular HGB Conc 30.4 g/dl (31.0-36.0); Mean Corpuscular Hemoglobin 23.3 pg (27.0-33.0); Mean Corpuscular Volume 76.5 fL (80.0-98.0); Mean Platelet Volume 10.6 fL (9.4-12.4); Monocytes Absolute Auto 0.9 X10*3/uL (0.1-1.2); Monocytes Percent Auto 9.6 % (2-11); Neutrophils Percent Auto 76.3 % (45-73); Platelet Count 230 X10*3/uL (160-400); Red Cell Distribution Width 16.2 % (11.0-16.0); White Blood Count 9.1 X10*3/uL (4.8-10.8)
[2023-10-29 13:54] LABS: INTERNATIONAL NORM RATIO 1.1 (0.9-1.1); Prothrombin Time 13.5 SEC (11.1-13.3)
[2023-10-29 14:00] VITALS: BP 126/63; PULSE 83; RESP 14; TEMP 36.4; O2SAT 93
[2023-10-29 14:05] LABS: Anion Gap 21 (12-20); Blood Urea Nitrogen 53 mg/dL (9-16); Calcium 9.2 mg/dL (8.4-10.2); Carbon Dioxide 23 mmol/L (22-29); Chloride 104 mmol/L (96-108); Creatinine Clr Calc Pharmacy 7.3; Estimated Glomerular Filt Rate 6; Glucose Random 285 mg/dL (60-115); Potassium 4.5 mmol/L (3.3-5.1); Sodium 143 mmol/L (135-145)
[2023-10-29 15:24] VITALS: BP 126/63; PULSE 83; RESP 14; TEMP 36.4; O2SAT 93
== END 2023-10-29 16:22 | disposition home or self-care (01) ==
PROVIDERS: Emergency Provider Emergency Medicine
DX: J90 Pleural effusion, not elsewhere classified (principal); R06.02 Shortness of breath; E11.9 Type 2 diabetes mellitus without complications; I10 Essential (primary) hypertension; G47.33 Obstructive sleep apnea (adult) (pediatric); Z99.81 Dependence on supplemental oxygen; Z79.899 Other long term (current) drug therapy
CPT/HCPCS: 36415; 71045; 71250; 80048; 85025; 85610; 99284

== ENCOUNTER 2023-11-28 06:51 | Inpatient (IN) | payer MEDICARE, SELFPAY ==
[2023-11-28] VITALS (19 sets, daily range): BP systolic 168–253; BP diastolic 72–122; PULSE 58–89; RESP 12–20; TEMP 36.4–36.8; O2SAT 80–100; BMI 29.1
--- NOTE | 2023-11-28 | ECG_ITS ---
Test Reason : chest tightiness Blood Pressure : / mmHG Vent. Rate : 088 BPM Atrial Rate : 088 BPM P-R Int : 168 ms QRS Dur : 098 ms QT Int : 382 ms P-R-T Axes : 040 -08 068 degrees QTc Int : 462 ms Normal sinus rhythm Minimal voltage criteria for LVH, may be normal variant ( James product ) Anterior infarct , age undetermined Abnormal ECG When compared with ECG of 30-SEP-2023 11:39, No significant change was found Referred By: Generic ED Physician Electronically Signed By:NIESHA HEATH
--- NOTE | ~2023-11-28 | CT_ITS ---
EXAMINATION: CT HEAD WITHOUT CONTRAST CLINICAL INFORMATION: Difficulty speaking and with COMPARISON: MRI brain on 04/13/2010 TECHNIQUE: Contiguous axial imaging was performed from the skull base to vertex without intravenous administration of contrast. This CT examination was performed using dose optimization techniques as appropriate, variously including the following: *Automated exposure control *Adjustment of mA and/or kV according to patient size (this includes techniques or standardized protocols for targeted exams where dose is matched to indication/reason for exam; i.e. extremities or head) *Use of iterative reconstruction technique DLP: 709 mGy-cm FINDINGS: No acute intracranial hemorrhage or infarct. The ramirez-white matter differentiation is preserved. No midline shift or hydrocephalus. No acute extra-axial fluid collections. The osseous structures are unremarkable. No orbital pathology. The paranasal sinuses are clear. Trace left mastoid effusion. Atherosclerotic calcifications of the bilateral carotid siphons and visualized intracranial vertebral arteries. CT/CT head/brain wo IV con IMPRESSION: No acute intracranial pathology. Electronically signed by: Silvia Pérez MD 12/02/2023 12:00 PM EDT
--- NOTE | ~2023-11-28 | CT_ITS ---
CLINICAL HISTORY: Persistent right loculated pleural effusion status post Pleurx removal. PROCEDURES: 1. Limited preprocedure CT of the chest. Permanent images saved in PACS. 2. CT-guided right chest tube placement 3. Limited post procedure CT of the chest. Permanent images saved in PACS. CLINICIANS: Jalen Becerra PA-C MEDICATIONS: -Fentanyl 25 mcg, and lidocaine 1% 10 mL SQ -Antibiotics: None -For additional details, please see nursing flowsheet. COMPLICATIONS: None ESTIMATED BLOOD LOSS: < 5 ml CONTRAST: None SPECIMENS: A specimen was sent for culture. PROCEDURE NOTE: The procedure, risks, benefits, and alternatives were carefully explained to the patient and written informed consent was obtained. The patient was placed in the left lateral decubitus position on the CT table. A timeout was performed. A limited CT of the chest was performed to localize the loculated right pleural effusion and choose appropriate needle entry and trajectory. The patient was prepped and draped in usual sterile fashion. The skin and subcutaneous tissues were anesthetized with lidocaine. Under CT guidance, a 5 [employer] catheter was advanced to the fluid collection. Brown fluid was immediately aspirated. A 0.0035 J wire was inserted through the the catheter and coiled in the right pleural space. The catheter was then removed over the wire. The tract was then serially dilated. Over the wire, a 12 fr all-purpose drainage catheter was advanced and coiled into the fluid collection under CT guidance. The wire was then removed. A total of 10 ml of brown fluid was removed and sent for culture. The catheter was secured to the skin with a 2-0 nylon suture. The catheter was then connected to a closed drainage system. A limited postprocedure CT was then obtained. The patient was stable after the procedure and was transferred back to the patient's room. CT/CT chest tube placement Impression: CT guided drainage of right loculated pleural effusion. This procedure was performed by Jalen Becerra PA-C and supervised by Dr. De La Cruz. Electronically signed by: Jaime De La Cruz MD 11/30/2023 03:19 PM EDT
--- NOTE | ~2023-11-28 | XR_ITS ---
EXAMINATION: XR CHEST CLINICAL INFORMATION: Dyspnea COMPARISON: 10/29/2023 TECHNIQUE: Frontal view of the chest was obtained. FINDINGS: Right sided central venous catheter terminating at the cavoatrial junction stable. Moderate cardiomegaly with mild distention of the pulmonary vessels. Elevated right hemidiaphragm with right basilar infiltrate and effusion slightly worse. Minimal atelectasis at the left base stable. Redemonstrated is a vascular stent overlying the left axillary/brachial region. XR/XR chest 1V IMPRESSION: Increasing infiltrate/effusion right base. Congestive change noted. Electronically signed by: Yusuf Farooq MD 11/28/2023 10:14 AM EDT
--- NOTE | ~2023-11-28 | XR_ITS ---
EXAMINATION: XR CHEST CLINICAL INFORMATION: Status post right chest tube removal. COMPARISON: November 30, 2023. TECHNIQUE: Portable AP view of the chest was obtained. FINDINGS: The previously seen small bore right chest tube has been removed. Otherwise, there has been no significant radiographic change. No pneumothorax is identified. Moderate right basilar hazy and patchy density appears unchanged, suggesting pleural fluid, pleural thickening, atelectasis, infiltrate, and/or mass. A linear density projecting over the left midlung suggest atelectasis and/or fibrotic streak. No effusion is seen on the left. The cardiac silhouette appears enlarged. There is mildly atherosclerotic. Mild calcification of the carotid bulbs. Metallic vascular stents project over the left subclavian and left axillary region. The tip of a presumed right internal jugular tunneled dialysis catheter projects over the junction of superior vena cava and the right atrium. The bones appear unremarkable. XR/XR chest 1V IMPRESSION: Findings as above. Electronically signed by: Richar Ponce MD 12/04/2023 08:22 AM EDT RP
--- NOTE | ~2023-11-28 | MR_ITS ---
EXAMINATION: MR BRAIN WITHOUT CONTRAST CLINICAL INFORMATION: Weakness, slurred speech COMPARISON: CT head on 11/24/2023 TECHNIQUE: MRI of the brain was obtained using routine sequences without contrast. FINDINGS: Motion artifact is present. No acute intracranial hemorrhage or infarct. Scattered and confluent periventricular and deep white matter T2/FLAIR hyperintensities, nonspecific however commonly seen with small vessel ischemic disease. No midline shift or hydrocephalus. No acute extra-axial fluid collections. The osseous structures are unremarkable. The pituitary gland, pineal gland and remaining midline structures are unremarkable. Sequelae of right lens replacement. Otherwise, no acute orbital pathology. The paranasal sinuses are clear. Right greater than left mastoid effusions as well as left middle ear effusion. MR/MR head/brain wo con IMPRESSION: Within the limitations of the study, -No acute intracranial abnormalities. -Bilateral mastoid and left middle ear effusions. Electronically signed by: Silvia Pérez MD 12/05/2023 04:37 PM EDT
--- NOTE | ~2023-11-28 | XR_ITS ---
EXAMINATION: XR CHEST CLINICAL INFORMATION: Follow-up pleural effusion COMPARISON: Chest radiograph 11/28/2023 TECHNIQUE: Frontal view of the chest was obtained. FINDINGS: A pigtail catheter projects over the right lower hemithorax. Right-sided central venous catheter terminating at the cavoatrial junction, similar to prior exam. Similar small to moderate right pleural effusion with right basilar atelectasis/consolidation. Streaky atelectasis in the left midlung. No significant left-sided pleural effusion. No pneumothorax. Again noted cardiomegaly with mildly improved central vascular congestion. Vascular stent overlying the left axillary/subclavian region. XR/XR chest 1V IMPRESSION: Similar small to moderate right pleural effusion and right basilar atelectasis/consolidation. Streaky atelectasis in the left midlung. Moderate cardiomegaly with mildly improving central vascular congestion. Electronically signed by: Benny Heart MD 11/30/2023 08:18 AM EDT
--- NOTE | ~2023-11-28 | MR_ITS ---
EXAMINATION: MR LUMBAR SPINE WITHOUT CONTRAST CLINICAL INFORMATION: Lumbar radiculopathy, lower extremity weakness COMPARISON: None available. TECHNIQUE: MRI of the lumbar spine was obtained using routine sequences without contrast. FINDINGS: Evaluation is markedly limited by severe motion blurring. The visualized lumbar vertebrae are intact with normal alignment. Evaluation of the intervertebral discs show: T12/L1: Intervertebral disc height is normal, with normal T2 signal. No focal disc herniation is seen. Bilateral T12/L1 neuroforamina are patent. Bilateral apophyseal joints are intact with normal alignment. L-1/L-2: Intervertebral disc height is normal, with normal T2 signal. No focal disc herniation is seen. Bilateral L1-L2 neuroforamina are patent. Bilateral apophyseal joints are intact with normal alignment. Left L2 vertebral body T2 hyperintense lesion with punctate flow voids is seen, measuring 1.1 cm in AP diameter, 1.0 cm in width, 1.3 cm in vertical height. L2/L3: Intervertebral disc height is normal, with mild loss of T2 signal. No focal disc herniation is seen. Bilateral L2-L3 neuroforamina are patent. Bilateral apophyseal joints are intact with normal alignment. L3/L4: Intervertebral disc height is normal, with mild loss of T2 signal. No focal disc herniation is seen. Bilateral L3-L4 neuroforamina are patent. Bilateral apophyseal joints are intact with normal alignment. L4/L5: Intervertebral disc height is normal, with mild loss of T2 signal. Mild broad-based disc bulge is seen. Bilateral L4-L5 neuroforamina are patent. Bilateral apophyseal joints are intact with normal alignment. L5/S1: Intervertebral disc height is normal, with mild loss of T2 signal. Mild broad-based disc bulge is seen. Bilateral L5-S1 neuroforamina are patent. Bilateral apophyseal joints are intact with normal alignment. Conus medullaris is seen normally at L1 level. MR/MR lumbar spine wo con IMPRESSION: 1. Evaluation is markedly limited by severe motion blurring. 2. Mild broad-based disc bulges at L4-L5 and L5-S1. 3. No significant spinal canal or neural foraminal stenosis. 4. Left L2 vertebral body hemangioma is found. Electronically signed by: Bharath Georges MD 12/06/2023 04:26 PM EDT
--- NOTE | ~2023-11-28 | CT_ITS ---
EXAMINATION: CT CHEST WITHOUT CONTRAST CLINICAL INFORMATION: Pleural effusion follow-up. COMPARISON: Prior CT chest dated 10/29/2023. TECHNIQUE: Multidetector volumetric CT imaging of the chest was done. Axial MIP volume rendering provided. Sagittal and coronal reformatted images were obtained. This CT examination was performed using dose optimization techniques as appropriate, variously including the following: *Automated exposure control *Adjustment of mA and/or kV according to patient size (this includes techniques or standardized protocols for targeted exams where dose is matched to indication/reason for exam; i.e. extremities or head) *Use of iterative reconstruction technique DLP: 289 mGy-cm FINDINGS: MANAGED CARE SPECIALIST: Unremarkable LUNGS: The right-sided previously noted tunneled drainage catheter has been removed. There is consolidation and atelectasis at the right lung base compressive in nature unchanged. The amount of pleural fluid has decreased from the prior study. Air is now observed within the pleural space likely either iatrogenic or suggestive of an underlying infectious process. The left lung demonstrates vague areas of groundglass opacity and mosaic perfusion. Suspicious nodules or masses are not seen. MEDIASTINUM: Moderate cardiomegaly. Small pericardial effusion. Multiple confluent nodes in the mediastinum are seen particularly in the retrocaval and precarinal space, measuring up to 14 mm. CORONARY ARTERY CALCIFICATION: Advanced. PLEURA: Please see above discussion. The right pleural effusion now contains air possibly secondary to catheter manipulation. An empyema or infectious process could have a similar appearance. Overall, I believe the effusion is smaller today than on the prior 10/29/2023 study. AXILLA: No lymphadenopathy. UPPER ABDOMEN: Vascular calcifications present. OSSEOUS STRUCTURES: Spondylitic degenerative change observed within the spine. Sternum intact. CT/CT chest wo IV con IMPRESSION: Right-sided chest tube is been removed. The moderate right effusion persists but is slightly smaller, with air now observed within the pleural space. Fleischner guidelines were followed. Electronically signed by: Yusuf Farooq MD 11/28/2023 11:34 AM EDT
[2023-11-28 07:20] LABS: MANUAL DIFF FLAG NO
--- NOTE | 2023-11-28 07:23 | PC.NURSE ---
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 pt presents to the ED w/ increased sob x 1 week w/ associated nonradiating intermittent right sided chest tightness x 3 days. compliant dialysis pt - last dialyzed yesterday. pt also reports partial lung resection w/ right sided pleural effusions. pt uses 2L via NC PRN at home. hx asthma/copd. upon ED arrival - a&ox4. SPO2 80% on RA - pt placed on 3L via NC w/ good effect - resting @ 91%. 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 hypertensive - states he takes BP meds but unaware on which as he states that his brother knows all of this information. wob noted. pt positioned upright to promote patent airway. 18gIV placed in the right forearm - labs obtained/sent to lab. ekg performed by tech. chest xray ordered. plan of care ongoing. call montilla placed within reach.
[2023-11-28 07:25] LABS: Basophils Absolute Auto 0.1 X10*3/uL (0.0-0.2); Basophils Percent Auto 0.5 % (0-2); Eosinophils Absolute Auto 0.3 X10*3/uL (0.0-0.4); Eosinophils Percent Auto 2.7 % (0-4); Hematocrit 35.3 % (42.0-52.0); Hemoglobin 10.5 g/dl (14.0-18.0); Imm Gran Abs Auto 0.06 X10*3/uL (0.00-0.03); Imm Gran Pct Auto 0.5 % (0.0-0.4); Lymphocytes Absolute Auto 1.2 X10*3/uL (1.2-4.9); Lymphocytes Percent Auto 10.7 % (20-40); Mean Corpuscular HGB Conc 29.7 g/dl (31.0-36.0); Mean Corpuscular Hemoglobin 22.8 pg (27.0-33.0); Mean Corpuscular Volume 76.7 fL (80.0-98.0); Mean Platelet Volume 10.7 fL (9.4-12.4); Monocytes Absolute Auto 0.8 X10*3/uL (0.1-1.2); Monocytes Percent Auto 7.6 % (2-11); Neutrophils Absolute Auto 8.6 x10*3/uL (2.0-8.3); Platelet Count 248 X10*3/uL (160-400); White Blood Count 11.1 X10*3/uL (4.8-10.8)
--- NOTE | 2023-11-28 07:32 | ED.SOB ---
HPI - SOB/Dyspnea General Chief Complaint: Dyspnea Stated Complaint: SoB Time Seen by Provider: 11/28/23 07:32 Source: patient, family, RN notes reviewed and old records reviewed Mode of arrival: ambulatory Limitations: no limitations History of Present Illness ED Provider: Alhaji Christiansen PA-C HPI Narrative: 68 yo male with history of ESRD on HD M/W/F, DM2 on insulin, ROBERT on nocturnal O2, HFrEF (35%), history of exudative loculated pleural effusion s/p PleurEx catheter placement 07/13/23 and removal 2 weeks ago who presents to the ER for evaluation of worsening SOB for the last 3-4 days. States the shortness of breath is worse when he tries to sleep. He states he had his full dialysis session yesterday. He reports he was initially doing well at home without the catheter in place but his breathing started getting worse over the weekend. It is worse with exertion. Unsure if it is worse when he lays flat because he always sleeps sitting up. He reports a tight sensation in his right chest when he is short of breath. No shortness a breath or chest tightness at rest. He states he wears his 2 L of oxygen at night and p.r.n. during the day. He arrives to the ER without the oxygen in place and he was satting 80% on room air. MD elicited complaint: shortness of breath Pertinent past history: congestive heart failure and other (pleural effusion) Onset (ago): day(s) Context: other (Recent PleurX catheter removal) Timing: intermittent Exacerbating factors: exertion, movement and inspiration Relieving factors: bronchodilators and upright position Associated symptoms: denies other symptoms Treatment prior to arrival: bronchodilator Related Data Home oxygen amount: 2 liters Home Medications ?Medication ?Instructions ?Recorded ?Confirmed albuterol sulfate 90 mcg/actuation 2 puff inhalation Q4H PRN 04/19/22 11/28/23 aerosol inhaler Shortness Of Breath allopurinol 100 mg tablet 100 mg PO MOWEFR@1600 04/19/22 11/28/23 atorvastatin 40 mg tablet 40 mg PO DAILY 04/19/22 11/28/23 doxazosin 4 mg tablet 4 mg PO BEDTIME 04/19/22 11/28/23 furosemide 80 mg tablet 80 mg PO DAILY 04/19/22 11/28/23 ipratropium 0.5 mg-albuterol 3 mg 3 ml inhalation Q4H PRN Wheezing 04/19/22 11/28/23 (2.5 mg base)/3 mL nebulization soln omeprazole 20 mg capsule,delayed 20 mg PO DAILY@0630 04/19/22 11/28/23 release sennosides 8.6 mg-docusate sodium 1 tab PO DAILY PRN Constipation 04/19/22 11/28/23 50 mg tablet (Senna-Time S) insulin glargine 100 unit/mL (3 22 unit subcut BEDTIME 04/10/23 11/28/23 mL) subcutaneous pen (Lantus Solostar U-100 Insulin) insulin lispro 100 unit/mL 1 sliding scale dose subcut TIDAC 04/10/23 11/28/23 subcutaneous pen aspirin 81 mg tablet,delayed 81 mg PO DAILY 06/20/23 11/28/23 release pregabalin 75 mg capsule 75 mg PO DAILY 06/20/23 11/28/23 fluticasone fur. 200 mcg-umeclid 1 ea inhalation DAILY 09/30/23 11/28/23 62.5 mcg-vilant 25 mcg inhalat.powder (Trelegy Ellipta) hydralazine 50 mg tablet 50 mg PO TID 09/30/23 11/28/23 Previous Rx's ?Medication ?Instructions ?Recorded carvedilol 6.25 mg tablet 6.25 mg PO BID #60 tabs 10/03/23 losartan 25 mg tablet 25 mg PO DAILY #90 tabs 10/03/23 PleurX catheter drainage kits #10 ea 10/17/23 Allergies Allergy/AdvReac Type Severity Reaction Status Date / Time No Known Allergies Allergy Verified 11/28/23 07:13 Review of Systems Review of Systems: Yes all other systems are reviewed and are negative [facility] Past Medical History Medical History Chronic combined systolic and diastolic CHF (congestive heart failure) Chronic pericardial effusion Arthritis Asthma Restless leg syndrome Acute on chronic systolic and diastolic heart failure, NYHA class 3 Anemia Occlusive thrombus Pulmonary edema ROBERT (obstructive sleep apnea) Type 2 diabetes mellitus Hyperlipidemia Hypertension A-V fistula ESRD on dialysis Falling Surgical History Recurrent pleural effusion Pleural effusion on right (07/13/23) History of surgery H/O colonoscopy Family History Family History Father No problems noted. Mother No problems noted. Social History Social History Household Members: Children Household Members Other:: son Housing: Apartment Do you presently have visiting nurse or other home services: No Alcohol intake: never Comment: counts correct Patient Tobacco Use Status: Former Tobacco user Tobacco use type: Cigarette Smoked in Last 30 Days: No Use of substances other than those prescribed or required for medical reasons: No Advance Directives: Yes Advance Directives on File: Yes Advance Directives Date on File: 10/04/23 service: No Physical Exam Vital Signs: Vital Signs: Last Vital Signs Temp 97.6 F 11/28/23 14:20 Pulse 58 11/28/23 15:53 Resp 13 11/28/23 15:53 BP 172/72 H 11/28/23 15:53 Pulse Ox 95 11/28/23 15:53 O2 Del Method Nasal Cannula 11/28/23 15:53 O2 Flow Rate 2 11/28/23 15:53 BMI result Body Mass Index 29.1 Appearance: Alert. Oriented X3. Chronically ill-appearing, fatigued Head: normocephalic, atraumatic. Eyes: Pupils equal, round and reactive to light. ENT: Pharynx normal. No tonsillar swelling or exudate. Neck: Normal inspection. Neck supple. +JVD CVS: Normal heart rate and rhythm. Pulses normal. Respiratory: No respiratory distress. Breath sounds diminished in the right lower lobe and right middle lobe. Sutures in place from recent PleurX catheter removal on the right lateral chest wall, no surrounding erythema. Abdomen: Softly distended and nontender. +BS x4 Skin: Skin warm and dry. Normal skin color. Normal skin turgor. No rashes. Extremities: No lower extremity edema. No joint swelling. Neuro/psych: Oriented X 3. No motor deficit. No sensory deficit. CN II-XII intact. Normal speech and cognition. Course Reevaluation(s) Reevaluation #1: case d/w Dr. Valdes who is recommend IR consult for thoracentesis vs replacement of PleurEx Time: 08:04 Reevaluation #2: Patient continues to be significantly elevated. Multiple doses of IV and p.o. medications have been ordered. He remains asymptomatic, no headache, chest pain, mental status changes, vision changes. Family continues to report that this is his baseline blood pressure. Time: 15:34 Reevaluation #3: After multiple doses of IV and oral antihypertensive agents patient's blood pressure is improved 172/72. He is currently sleeping comfortably. Patient to be admitted to the medical floor Time: 16:04 Medications Administered Discontinued Medications Generic Name Dose Route Start Last Admin Trade Name Freq PRN Reason Stop Dose Admin Amlodipine Besylate 10 mg 11/28/23 12:01 11/28/23 12:20 Amlodipine Besylate 10 Mg Tablet PO 11/28/23 12:02 10 mg ONCE ONE Administration Protocol Carvedilol 6.25 mg 11/28/23 07:57 11/28/23 08:13 Carvedilol 6.25 Mg Tablet PO 11/28/23 07:58 6.25 mg ONCE ONE Administration Protocol Hydralazine HCl 10 mg 11/28/23 07:56 11/28/23 08:13 Hydralazine Hcl 20 Mg/Ml Vial IVPUSH 11/28/23 07:57 10 mg ONCE ONE Administration Protocol Hydralazine HCl 100 mg 11/28/23 14:59 11/28/23 15:06 Hydralazine Hcl 50 Mg Tablet PO 11/28/23 15:00 100 mg ONCE ONE Administration Protocol Hydromorphone HCl 0.5 mg 11/28/23 08:57 11/28/23 09:10 Hydromorphone Hcl 0.5 Mg/0.5 Ml Syringe IVPUSH 11/28/23 08:58 0.5 mg ONCE ONE Administration Protocol Vancomycin HCl 2,000 mg in 500 mls @ 250 mls/hr 11/28/23 10:16 11/28/23 11:09 Vancomycin/Ns IV 11/28/23 12:15 250 mls/hr ONCE ONE Administration Cefepime HCl 1 gm/ Sodium 50 mls @ 100 mls/hr 11/28/23 10:16 11/28/23 11:07 Chloride IV 11/28/23 10:45 Infused ONCE ONE Infusion Labetalol HCl 20 mg 11/28/23 10:23 11/28/23 10:38 Labetalol Hcl 100 Mg/20 Ml Vial IVPUSH 11/28/23 10:24 20 mg ONCE ONE Administration Labetalol HCl 20 mg 11/28/23 14:34 11/28/23 14:52 Labetalol Hcl 100 Mg/20 Ml Vial IVPUSH 11/28/23 14:35 20 mg ONCE ONE Administration Losartan Potassium 25 mg 11/28/23 07:57 11/28/23 08:13 Losartan Potassium 25 Mg Tablet PO 11/28/23 07:58 25 mg ONCE ONE Administration Protocol Nitroglycerin 0.5 inch 11/28/23 09:13 11/28/23 09:15 Nitroglycerin 2 % Oint 1 Gm Packet TRANSDERMA 11/28/23 09:14 0.5 inch ONCE ONE Administration Medical Decision Making Medical Decision Making MDM Narrative: 68 yo male with history of ESRD on HD M/W/F, DM2 on insulin, ROBERT on nocturnal O2, HFrEF (35%), history of exudative loculated pleural effusion s/p PleurEx catheter placement 07/13/23 and removal 2 weeks ago who presents to the ER for evaluation of worsening SOB for the last 3-4 days. Concern for reaccumulation of pleural effusion now that the PleurX catheter is out. Has diminished lung sounds on the right side. Was hypoxic to 80% on room air. Patient does not tolerate lying flat. He had full dialysis session yesterday, no peripheral edema. On arrival to the ER patient is hypertensive with blood pressure 226/122. He was reporting some right-sided chest tightness and shortness of breath. IV was established and he was given IV hydralazine as well as his oral antihypertensives. Repeat blood pressures remained elevated with systolic over 200, IV labetalol was then given which resulted improvement in blood pressure 160/93. Chest x-ray showing haziness in the right lower lobe concerning for worsening effusion so CT scan was done. CT scan is showing consolidation and atelectasis in the right lung base there is also air in the pleural space either iatrogenic or suggestive of underlying infectious process. There is also ground-glass opacities in the left lung. IV antibiotics, vancomycin and cefepime were ordered. Interventional Radiology was consulted per Dr. Valdes's recommendations. Will plan to admit the patient for further management. Differential Diagnosis Differential Diagnoses: The differential diagnosis associated with the presentation includes Transudative pleural effusion, exudative pleural effusion, pneumonia, parapneumonic effusion, hypertensive urgency, hypertensive emergency, malignant hypertension Admission/Observation Consideration of admission/observation: Escalation of care including admission/observation considered Consult Healthcare Provider Management of the patient was discussed with: Hospitalist and Clean Room Assembler Dr. Valdes - recommending IR evaluation for thora vs chest tube vs pleurex catheter Anup MONTERO from IR Lab Data MDM Lab Attestation statement: I reviewed the patient's lab results. Mild stable anemia of chronic disease, mild hypernatremia, chronically elevated BUN and creatinine, patient is on dialysis 11/28/23 07:10 11/28/23 07:10 Labs: Lab Results 11/28/23 11/28/23 Range/Units 07:10 10:34 WBC 11.1 H (4.8-10.8) X10*3/uL RBC 4.60 (4.60-5.80) X10*6/uL Hgb 10.5 L (14.0-18.0) g/dl Hct 35.3 L (42.0-52.0) % MCV 76.7 L (80.0-98.0) fL MCH 22.8 L (27.0-33.0) pg MCHC 29.7 L (31.0-36.0) g/dl RDW 17.0 H (11.0-16.0) % Plt Count 248 (160-400) X10*3/uL MPV 10.7 (9.4-12.4) fL Immature Gran % (Auto) 0.5 H (0.0-0.4) % Neut % (Auto) 78.0 H (45-73) % Lymph % (Auto) 10.7 L (20-40) % Alfalfa % (Auto) 7.6 (2-11) % Eos % (Auto) 2.7 (0-4) % Baso % (Auto) 0.5 (0-2) % Lymph # (Auto) 1.2 (1.2-4.9) X10*3/uL Alfalfa # (Auto) 0.8 (0.1-1.2) X10*3/uL Eos # (Auto) 0.3 (0.0-0.4) X10*3/uL Baso # (Auto) 0.1 (0.0-0.2) X10*3/uL Abs Immat Gran (auto) 0.06 H (0.00-0.03) X10*3/uL Absolute Neuts (auto) 8.6 H (2.0-8.3) x10*3/uL Absolute Nucleated RBC 0.000 (0.0-0.012) X10*3/uL Nucleated RBC % (auto) 0.0 (0.0-0.2) /100WBC Sodium 146 H (135-145) mmol/L Potassium 4.7 (3.3-5.1) mmol/L Chloride 106 (96-108) mmol/L Carbon Dioxide 23 (22-29) mmol/L Anion Gap 22 H (12-20) BUN 35 H (9-16) mg/dL Creatinine 7.35 H* (0.5-1.4) mg/dL Estim Creat Clear Calc 9.1 Estimated GFR 7 Random Glucose 127 H (60-115) mg/dL Lactic Acid 0.6 (0.5-2.0) mmol/L Calcium 9.7 (8.4-10.2) mg/dL Total Bilirubin 0.5 (0.0-1.0) mg/dL AST 26 (5-37) U/L ALT 31 (0-40) U/L Alkaline Phosphatase 188 H (39-117) U/L Lactate Dehydrogenase 416 H (118-273) U/L Troponin I High Sens 76.0 H (<3.5-35.0) ng/L B-Natriuretic Peptide 2704 H (<100) pg/mL Total Protein 8.3 H (6.5-8.0) g/dL Albumin 4.1 (3.5-5.0) g/dL Procalcitonin 0.55 ng/mL Influenza Type A (PCR) NEGATIVE (Negative) Influenza Type B (PCR) NEGATIVE (Negative) RSV RNA Qual (PCR) NEGATIVE (Negative) SARS-CoV-2 RNA (RT-PCR) NEGATIVE (Negative) Independent Interpretation I performed an independent interpretation of an: EKG, Plain X-Ray and CT Scan Radiology Impression Discussion of test interpretation with radiology: I have reviewed the radiologist's reading. Radiologist Impression: EXAMINATION: CT CHEST WITHOUT CONTRAST CLINICAL INFORMATION: Pleural effusion follow-up. COMPARISON: Prior CT chest dated 10/29/2023. TECHNIQUE: Multidetector volumetric CT imaging of the chest was done. Axial MIP volume rendering provided. Sagittal and coronal reformatted images were obtained. This CT examination was performed using dose optimization techniques as appropriate, variously including the following: *Automated exposure control *Adjustment of mA and/or kV according to patient size (this includes techniques or standardized protocols for targeted exams where dose is matched to indication/reason for exam; i.e. extremities or head) *Use of iterative reconstruction technique DLP: 289 mGy-cm FINDINGS: NAIL CUTTER: Unremarkable LUNGS: The right-sided previously noted tunneled drainage catheter has been removed. There is consolidation and atelectasis at the right lung base compressive in nature unchanged. The amount of pleural fluid has decreased from the prior study. Air is now observed within the pleural space likely either iatrogenic or suggestive of an underlying infectious process. The left lung demonstrates vague areas of groundglass opacity and mosaic perfusion. Suspicious nodules or masses are not seen. MEDIASTINUM: Moderate cardiomegaly. Small pericardial effusion. Multiple confluent nodes in the mediastinum are seen particularly in the retrocaval and precarinal space, measuring up to 14 mm. CORONARY ARTERY CALCIFICATION: Advanced. PLEURA: Please see above discussion. The right pleural effusion now contains air possibly secondary to catheter manipulation. An empyema or infectious process could have a similar appearance. Overall, I believe the effusion is smaller today than on the prior 10/29/2023 study. AXILLA: No lymphadenopathy. UPPER ABDOMEN: Vascular calcifications present. OSSEOUS STRUCTURES: Spondylitic degenerative change observed within the spine. Sternum intact. CT/CT chest wo IV con IMPRESSION: Right-sided chest tube is been removed. The moderate right effusion persists but is slightly smaller, with air now observed within the pleural space. Independent Historian Clinical information obtained from an independent historian. History obtained from or confirmed by: Other (Family at the bedside) External Record Review External record reviewed: Inpatient record, Office record, Outpatient record, Prior outpatient labs and Prior outpatient radiology Prescription Management I considered prescription management with: Pain Medication and Other (Antihypertensive) Chronic Conditions Patient?s care impacted by: Diabetes, Hypertension and Other (End-stage renal disease, recurrent pleural effusion) Critical Care Time Critical Care Time Critical Care Time: Yes Total Critical Care Time: 56 Attestation: I have personally provided critical care time exclusive of time spent on separately billable procedures. Time includes review of lab data, radiology results, discussion with consultants, and monitoring for potential decompensation. Intervention performed as documented. Discharge Plan Discharge Clinical Impression: Recurrent pleural effusion on right, Hypertensive urgency Hypoxic respiratory failure Qualifiers: Chronicity: acute Qualified Code(s): J96.01 - Acute respiratory failure with hypoxia Patient Disposition: Admitted As Inpatient Print Language: Sinhala
[2023-11-28 07:50] LABS: Alanine Aminotransferase 31 U/L (0-40); Albumin Level 4.1 g/dL (3.5-5.0); Alkaline Phosphatase 188 U/L (39-117); Anion Gap 22 (12-20); Aspartate Amino Transferase 26 U/L (5-37); Bilirubin Total 0.5 mg/dL (0.0-1.0); Blood Urea Nitrogen 35 mg/dL (9-16); Calcium 9.7 mg/dL (8.4-10.2); Carbon Dioxide 23 mmol/L (22-29); Chloride 106 mmol/L (96-108); Creatinine Clr Calc Pharmacy 9.1; Estimated Glomerular Filt Rate 7; Glucose Random 127 mg/dL (60-115); Potassium 4.7 mmol/L (3.3-5.1); Sodium 146 mmol/L (135-145); Total Protein 8.3 g/dL (6.5-8.0)
--- NOTE | 2023-11-28 07:50 | PC.NURSE ---
critical lab value received at this time - creatinine 7.35. provider notified/aware.
[2023-11-28 07:51] LABS: B Type Natriuretic Peptide 2704 pg/mL (<100)
--- NOTE | 2023-11-28 07:51 | PC.NURSE ---
dr. moreno bedside speaking w/ pt. plan of care ongoing.
[2023-11-28] MEDS: carvediloL 6.25 MG TABLET PO (08:13)
[2023-11-28] MEDS: Losartan Potassium 25 MG TABLET PO (08:13)
[2023-11-28] MEDS: hydrALAZINE HCl 20 MG/ML VIAL 10 MG IVPUSH (08:13)
--- NOTE | 2023-11-28 08:15 | PC.NURSE ---
medication administered per provider order for BP. effectiveness pending.
[2023-11-28 08:16] LABS: Influenza A PCR NEGATIVE (Negative); Influenza B PCR NEGATIVE (Negative); Resp Syncy Virus RNA Qual PCR NEGATIVE (Negative); SARS COV2 PCR INHOUSE NEGATIVE (Negative)
[2023-11-28] MEDS: HYDROmorphone HCl 0.5 MG/0.5 ML SYRINGE IVPUSH ×2 (09:10→22:16)
--- NOTE | 2023-11-28 09:12 | PC.NURSE ---
pt verbalizes increase in right sided chest pain/sob. pt positioned upright to promote patent airway. interventions unsuccessful. pt remaining 92% on 3L via NC but placed on 5L via nonrebreather by ED provider. medication administered per provider order. pt repositioned again. pt sitting upright. eyes closed. seemingly uncomfortable. respirations remain even/labored. plan of care ongoing.
[2023-11-28] MEDS: Nitroglycerin 2 % Oint 1 GM Packet 0.5 INCH TRANSDERMA (09:15)
[2023-11-28] MEDS: cefEPime HCl 1 GM in 0.9 % Sodium Chloride 50 ML IV ×2 (10:37→17:46)
[2023-11-28] MEDS: Labetalol HCL 100 MG/20 ML VIAL 20 MG IVPUSH ×2 (10:38→14:52)
[2023-11-28 10:54] LABS: Lactate Dehydrogenase 416 U/L (118-273)
[2023-11-28 11:02] LABS: Lactic Acid 0.6 mmol/L (0.5-2.0)
[2023-11-28 11:07] LABS: Procalcitonin 0.55 ng/mL
[2023-11-28] MEDS: vancomycin/NS 2,000 MG/500 ML PLAST..BAG 250 MG IV (11:09)
--- NOTE | 2023-11-28 11:17 | PC.NURSE ---
cultures/lactic obtained/sent to lab. abx administered per provider order. pt placed back on 3L via NC w/ good effect - resting at 94%. no sob/wob noted. respirations even/unlabored. pt verbalizes feeling much better. pt remains hypertensive despite previous interventions. otherwise vss and up to date. provider notified/aware.
[2023-11-28] MEDS: amLODIPine Besylate 10 MG TABLET PO (12:20)
--- NOTE | 2023-11-28 13:07 | PC.NURSE ---
report given to DONTRELL Leon at this time. pt being transported to main hospital CT. will resume care of pt when he returns.
--- NOTE | 2023-11-28 13:12 | P.HPHOSP_ITS ---
History of Present Illness Date of Service: 11/28/23 Attending physician on admission: [facility] Chief Complaint: sob 68-year-old male with history of ESRD on HD MWF on kidney transplant list (Dr. Shea), insulin-dependent type 2 diabetes, hypertension, hyperlipidemia, ROBERT on CPAP, heart failure with reduced ejection fraction EF 35% and grade 2 diastolic dysfunction presented to the ED earlier today for evaluation of dyspnea. patient has history of recurrent pleural effusion with pleur-x catheter placed 07/2023 and then removed about 2 weeks ago. Admitted again in August with fluid analysis showing probable exudative component with elevated WBCs and PMNs, treated with abx. However, effusion recurred. He has been following with thoracic surgery outpt and had pleur-x removed 2 weeks ago. had been doing well until about 3 days ago when he began developing ya and orthopnea. No weight gain or edema. He has ESRD and produces only scant urine, a few drops, last dialyzed yesterday. No fevers, chills, abd pain, n/v/d, lightheadedness, headaches, palpitations, or chest pain. Since arrival has been significantly hypertensive. Reports compliance with antihypertensive agents but still wtih BP up to 224/100 and was given 20 mg IV labetalol, 10 mg IV hydralazine, 10 mg amlodipine, 25 mg losartan, 6.125 mg Coreg, and 1/2 inch nitro paste. He was also hypoxic around 80 % on arrival, placed on 3 L supplemental O2 now maintaining oximetry 92%. He has a mild leukocytosis of 11.1. Has a stable microcytic anemia with H/H 10.5/35.3%. Renal function baseline, electrolyte levels normal except for sodium 146. Lactic acid 0.6. LDH 416. Troponin 76. BNP 2704. Procalcitonin 0.55. Negative for COVID, flu, RSV. Chest CT showed right-sided chest tube that has been removed with moderate right effusion persisting but slightly smaller with air no observed within the pleural space. In the ED received antihypertensives as above as well as IV cefepime and vancomycin as well hydromorphone for pain. Taken to IR for CT guided chest tube placement. Brown fluid drained. Cultures/fluid analysis sent. Seen with Alisson Luna PA-C, at bedside and welsh interpretor. Review of Systems 2 Review of Systems: Yes all other systems are reviewed and are negative [facility] Medical History Chronic combined systolic and diastolic CHF (congestive heart failure) Chronic pericardial effusion Arthritis Asthma Restless leg syndrome Acute on chronic systolic and diastolic heart failure, NYHA class 3 Anemia Occlusive thrombus Pulmonary edema ROBERT (obstructive sleep apnea) Type 2 diabetes mellitus Hyperlipidemia Hypertension A-V fistula ESRD on dialysis Falling Family History Father No problems noted. Mother No problems noted. Surgical History Recurrent pleural effusion Pleural effusion on right (07/13/23) History of surgery H/O colonoscopy Social History Household Members: Children Household Members Other:: son Housing: Apartment Do you presently have visiting nurse or other home services: No Alcohol intake: never Comment: counts correct Patient Tobacco Use Status: Former Tobacco user Tobacco use type: Cigarette Smoked in Last 30 Days: No Use of substances other than those prescribed or required for medical reasons: No Advance Directives: Yes Advance Directives on File: Yes Advance Directives Date on File: 10/04/23 service: No Meds Allergies Allergy/AdvReac Type Severity Reaction Status Date / Time No Known Allergies Allergy Verified 11/28/23 07:13 Home Medications ?Medication ?Instructions ?Recorded ?Confirmed ?Last Taken ?Type albuterol sulfate 90 mcg/actuation 2 puff inhalation Q4H PRN 04/19/22 11/28/23 Unknown History aerosol inhaler Shortness Of Breath allopurinol 100 mg tablet 100 mg PO MOWEFR@1600 04/19/22 11/28/23 11/27/23 History atorvastatin 40 mg tablet 40 mg PO DAILY 04/19/22 11/28/23 11/27/23 History doxazosin 4 mg tablet 4 mg PO BEDTIME 04/19/22 11/28/23 11/27/23 History furosemide 80 mg tablet 80 mg PO DAILY 04/19/22 11/28/23 11/27/23 History ipratropium 0.5 mg-albuterol 3 mg 3 ml inhalation Q4H PRN Wheezing 04/19/22 11/28/23 Unknown History (2.5 mg base)/3 mL nebulization soln omeprazole 20 mg capsule,delayed 20 mg PO DAILY@0630 04/19/22 11/28/23 11/27/23 History release sennosides 8.6 mg-docusate sodium 1 tab PO DAILY PRN Constipation 04/19/22 11/28/23 04/19/22 History 50 mg tablet (Senna-Time S) insulin glargine 100 unit/mL (3 22 unit subcut BEDTIME 04/10/23 11/28/23 11/27/23 History mL) subcutaneous pen (Lantus Solostar U-100 Insulin) insulin lispro 100 unit/mL 1 sliding scale dose subcut TIDAC 04/10/23 11/28/23 11/27/23 History subcutaneous pen aspirin 81 mg tablet,delayed 81 mg PO DAILY 06/20/23 11/28/23 11/27/23 History release pregabalin 75 mg capsule 75 mg PO DAILY 06/20/23 11/28/23 11/27/23 History fluticasone fur. 200 mcg-umeclid 1 ea inhalation DAILY 09/30/23 11/28/23 11/27/23 History 62.5 mcg-vilant 25 mcg inhalat.powder (Trelegy Ellipta) hydralazine 50 mg tablet 50 mg PO TID 09/30/23 11/28/23 11/27/23 History Physical Exam 2 Vital Signs and Narrative: Vital Signs: Last Vital Signs Temp 98.3 F 11/28/23 13:07 Pulse 66 11/28/23 13:07 Resp 16 11/28/23 13:07 BP 195/96 H 11/28/23 13:07 Pulse Ox 92 11/28/23 13:07 O2 Del Method Nasal Cannula 11/28/23 13:07 O2 Flow Rate 3 11/28/23 13:07 BMI result Body Mass Index 29.1 Constitutional - Awake and Alert, No apparent distress Eyes - PERRLA, EOMI Cardiovascular - S1S2, RRR, No edema Respiratory - Normal lung expansion, Normal respiratory effort, No respiratory distress, diminished RLL Chest- 2 healing incision right posterior/lateral chest with suture in place. No drainage, surrounding erythema or warmth Gastrointestinal - NT / ND; +BS; No rebound or guarding Extremities - no calf tenderness bilaterally, no swelling Skin - Warm/Dry Neurological - Alert & oriented x3 Psychological - Appropriate affect Results Labs 11/28/23 07:10 11/28/23 07:10 Labs: Laboratory Results - last 24 hr 11/28/23 11/28/23 07:10 10:34 MCV 76.7 L MCH 22.8 L MCHC 29.7 L RDW 17.0 H Plt Count 248 MPV 10.7 Immature Gran % (Auto) 0.5 H Neut % (Auto) 78.0 H Lymph % (Auto) 10.7 L [place] % (Auto) 7.6 Eos % (Auto) 2.7 Baso % (Auto) 0.5 Lymph # (Auto) 1.2 [place] # (Auto) 0.8 Eos # (Auto) 0.3 Baso # (Auto) 0.1 Abs Immat Gran (auto) 0.06 H Absolute Neuts (auto) 8.6 H Absolute Nucleated RBC 0.000 Nucleated RBC % (auto) 0.0 Anion Gap 22 H Estim Creat Clear Calc 9.1 Estimated GFR 7 Random Glucose 127 H Lactic Acid 0.6 Calcium 9.7 Total Bilirubin 0.5 AST 26 ALT 31 Alkaline Phosphatase 188 H Lactate Dehydrogenase 416 H Troponin I High Sens 76.0 H B-Natriuretic Peptide 2704 H Total Protein 8.3 H Albumin 4.1 Procalcitonin 0.55 Influenza Type A (PCR) NEGATIVE Influenza Type B (PCR) NEGATIVE RSV RNA Qual (PCR) NEGATIVE SARS-CoV-2 RNA (RT-PCR) NEGATIVE Imaging Radiologist's Impressions: Impressions Chest X-Ray 11/28/23 07:00 IMPRESSION: Increasing infiltrate/effusion right base. Congestive change noted. Electronically signed by: Yusuf Farooq MD 11/28/2023 10:14 AM EDT RP Chest CT 11/28/23 08:56 IMPRESSION: Right-sided chest tube is been removed. The moderate right effusion persists but is slightly smaller, with air now observed within the pleural space. Fleischner guidelines were followed. Electronically signed by: Yusuf Farooq MD 11/28/2023 11:34 AM EDT RP Assessment and Plan (1) Hypertensive urgency: Status: Acute (2) Recurrent pleural effusion on right: Status: Acute Plan 68-year-old male with history of ESRD on HD MWF on kidney transplant list (Dr. Shea), insulin-dependent type 2 diabetes, hypertension, hyperlipidemia, ROBERT on CPAP, heart failure with reduced ejection fraction EF 35% and grade 2 diastolic dysfunction to be observed for recurrent pleural effusion. #Recurrent pleural effusion due to decompensated HFrEF with acute hypoxemic respiratory failure, ?superimposed infectious etiology -had pleur-x catheter placed 07/12, removed [address] chest shows moderate R effusion that is slightly smaller, with air now observed in the pleural space, likely 2/2 tube removal -Pleural fluid analysis 09/2023 showed elevated WBC wtih 96% PMNs. treated with abx -Per thoracic surgery, chest tube placed by IR, fluid analysis pending -cover empirically with cefepime, vanco (initiated 11/27). Check MRSA nasal swab -continue supplemental O2 to maintain oximetry 90-92% -thoracic surgery consult # uncontrolled hypertension in setting of ESRD -received 20mg IV labetolol, 10mg IV hydralazine, 10mg amlodipine, 25mg losartan, 6.25mg coreg, and 0.5in nitropaste -continue coreg 6.125mg and losartan. Add hydralazine 50mg TID -nephrology consult -monitor blood pressure closely #ESRD on HD MWF -Follows with Dr. Shea, nephro consult # elevated troponin -has chronically elevated troponin levels. -no anginal chest pain -likely demand due to uncontrolled hypertension as well as end-stage renal disease # heart failure reduced ejection fraction -does not appear to be acutely exacerbated -continue po diuretics # insulin-dependent type 2 diabetes -dose adjusted basal insulin -Admelog on sliding scale -POC glucose, diabetic diet #ROBERT -cpap/nocturnal o2 #Moderate persistent asthma -no exacerbation, continue home inhalers, albuterol prn DVT prophylaxis-heparin Full code Pt requires inpt stay at least 2 midnigths for management of recurrent pleural effusion with acute hypoxemic respiratory failure requiring chest tube placement, expert consultation, and will need inpt HD on admission Quality Stroke Does the patient have a stroke diagnosis?: No VTE Prior VTE?: No VTE Risk Level:: Medical - moderate - high VTE Device Contraindication: Treatment Not Indicated VTE Drug Contraindication: N/A - Med Ordered
--- NOTE | 2023-11-28 13:44 | PHA.MEDREC ---
Addendum entered by Cele Atkinson [facility] 11/28/23 13:58: Reviewed by [facility] Original Note: Pharmacy Consult ? Medication Reconciliation Pharmacy has completed the medication reconciliation. Spoke to patients lorena Baez ([phone]) to confirm med list. Son states patient is no longer taking Nifedipine 90 mg , last filled 05/05/23 for 90 days. Son states patient in on both Lisinopril 10 mg and Losartan 25 mg, however per discharge packet from 10/03/23 Lisinopril was d/c. Son states Lantus is till 22 unita at bedtime and Insulin Lispro is per sliding scale , however he doesn't know min or max unit dosing.
--- NOTE | 2023-11-28 14:15 | PM.PROC ---
Brief Operative Note Date of procedure: 11/28/23 Pre-op diagnosis: Persistent loculated right pleural effusion s/p pleurx removal Post-op diagnosis: same Procedure: CT right chest tube 12 fr drain placed into loculated pleural effusion. Brown fluid aspirated and sent for culture. Jalen MONTERO Interventional Radiology
--- NOTE | 2023-11-28 14:21 | PC.NURSE ---
pt returned from procedure at this time. right sided chest tube place. sutures/dressing remain intact. no crepitus noted. connected to water seal. per receiving RN, pt tolerated procedure well. no complications noted. upon arriving back to ED, vss and up to date aside from remaining hypertensive. provider notified/aware. pt placed back on 3L via NC - resting comfortably in no apparent distress. no sob/wob noted. respirations even/unlabored. pt verbalizing that all pain has subsided post chest tube being placed. pt continues to pend admission at this time. plan of care ongoing. call montilla placed within reach.
[2023-11-28] MEDS: hydrALAZINE HCl 50 MG TABLET 100 MG PO (15:06)
[2023-11-28 17:20] LABS: MN% 5.9 %; PMN% 94.1 %; RBC Pleural Fluid 0.328 X10*6/uL
[2023-11-28] MEDS: Heparin Sodium,Porcine 5,000 UNIT/ML VIAL 5000 UNIT SUBCUT (17:46)
[2023-11-28 17:53] LABS: WBC Pleural Fluid 33.248 X10*3/uL
--- NOTE | 2023-11-28 19:03 | PC.NURSE ---
received report from Crista Sandy, assume care of pt at this time
--- NOTE | 2023-11-28 19:14 | PC.NURSE ---
pt continues to rest comfortably in no apparent distress at this time. has no complaints. denies pain. pt remains hypertensive but continues to trend downward at this time. remains on 3L via NC. no sob/wob noted. respirations remain even/unlabored. family bedside for support. plan of care ongoing. call montilla placed within reach.
[2023-11-28 20:03] LABS: BF Shift QC OK YES; Lymphocytes Pleural Fluid 2 %; Monocytes Pleural Fluid 8 %; Neutrophils Pleural Fluid 80 %; Other Cells Plerual Fl 10 %
[2023-11-28] MEDS: hydrALAZINE HCl 50 MG TABLET PO (21:34)
[2023-11-29] VITALS (9 sets, daily range): BP systolic 126–194; BP diastolic 56–89; PULSE 67–78; RESP 14–18; TEMP 36.4–36.9; O2SAT 92–97; BMI 28.6
[2023-11-29 05:18] LABS: MANUAL DIFF FLAG NO
[2023-11-29 05:30] LABS: Basophils Percent Auto 0.5 % (0-2); Eosinophils Absolute Auto 0.4 X10*3/uL (0.0-0.4); Eosinophils Percent Auto 4.6 % (0-4); Hematocrit 33.1 % (42.0-52.0); Hemoglobin 9.7 g/dl (14.0-18.0); Imm Gran Abs Auto 0.03 X10*3/uL (0.00-0.03); Imm Gran Pct Auto 0.4 % (0.0-0.4); Lymphocytes Absolute Auto 1.1 X10*3/uL (1.2-4.9); Lymphocytes Percent Auto 12.9 % (20-40); Mean Corpuscular HGB Conc 29.3 g/dl (31.0-36.0); Mean Corpuscular Hemoglobin 22.8 pg (27.0-33.0); Mean Corpuscular Volume 77.7 fL (80.0-98.0); Mean Platelet Volume 11.1 fL (9.4-12.4); Monocytes Absolute Auto 0.8 X10*3/uL (0.1-1.2); Monocytes Percent Auto 8.8 % (2-11); NRBC Pct Auto 0.4 /100WBC (0.0-0.2); Neutrophils Absolute Auto 6.2 x10*3/uL (2.0-8.3); Neutrophils Percent Auto 72.8 % (45-73); Platelet Count 226 X10*3/uL (160-400); Red Blood Count 4.26 X10*6/uL (4.60-5.80); Red Cell Distribution Width 16.9 % (11.0-16.0); White Blood Count 8.5 X10*3/uL (4.8-10.8)
[2023-11-29 05:41] LABS: Anion Gap 20 (12-20); Blood Urea Nitrogen 53 mg/dL (9-16); Calcium 9.1 mg/dL (8.4-10.2); Carbon Dioxide 23 mmol/L (22-29); Chloride 106 mmol/L (96-108); Creatinine Clr Calc Pharmacy 7.3; Estimated Glomerular Filt Rate 6; Glucose Random 101 mg/dL (60-115); Potassium 4.6 mmol/L (3.3-5.1); Sodium 144 mmol/L (135-145)
[2023-11-29] MEDS: Heparin Sodium,Porcine 5,000 UNIT/ML VIAL 5000 UNIT SUBCUT ×2 (06:10→17:18)
[2023-11-29] MEDS: HYDROmorphone HCl 0.5 MG/0.5 ML SYRINGE IVPUSH ×3 (06:17→19:58)
--- NOTE | 2023-11-29 07:15 | PC.NURSE ---
patient resting quietly in ED 4, patient has chest tube in place on right side, patient chest tube draining pinkish/red watery fluid, 70ml in chamber at this time and marked on chamber. Dressing for chest the chest tube is dry and intact. patient VSS, skin dry and intact. patient currently on 3lNC. patient sat up and ate breakfast, poc 83 no insulin needed at this time. patient scheduled for dialysis on days , patient set to go to dialysis today. patient plan of care on going
[2023-11-29 07:26] LABS: Glucose, Whole Blood 83 mg/dL (60-115)
--- NOTE | 2023-11-29 07:40 | HO.PM.IMPN ---
Subjective Subjective Date of Service: 11/29/23 Interval History: f/u on pleural effusion, acute hypoxic respiratory failure and accelerated HTN he's feeling better, no sob , chest tube in place and draining adequately Physical Exam Vital Signs: Vital Signs: Last Vital Signs Temp 98.5 F 11/29/23 07:20 Pulse 72 11/29/23 07:20 Resp 14 11/29/23 07:20 BP 191/77 H 11/29/23 07:20 Pulse Ox 94 11/29/23 07:20 O2 Del Method Nasal Cannula 11/29/23 07:20 O2 Flow Rate 3 11/29/23 07:20 BMI result Body Mass Index 29.1 Const: Other: General: AO X 3, no acute distress Resp: CTA bilateral, chest tube in place CVS: S1,S2,RRR GI: +BS, NT, no distention Skin: No rash Neuro: motor grossly intact Psych: appropriate affect Objective Data Active Medications Acetaminophen (Acetaminophen 325 Mg Tablet) 650 mg PO Q6H PRN PRN Reason: Pain, Mild (Pain Scale 1-3), fever or headache Albuterol Sulfate (Albuterol Sulfate 90 Mcg 8 Gm Inhaler) 2 puff INHALE Q4H PRN PRN Reason: Shortness Of Breath Albuterol/Ipratropium (Albuterol/Iprat 2.5/0.5mg 3 Ml Ampul.Neb) 3 ml INHALE Q4H PRN PRN Reason: Wheezing Allopurinol (Allopurinol 100 Mg Tablet) 100 mg PO MOWEFR@1600 [facility] Aspirin (Aspirin Enteric Coated 81 Mg Tablet.Dr) 81 mg PO DAILY [facility] Atorvastatin Calcium (Atorvastatin Calcium 40 Mg Tablet) 40 mg PO DAILY [facility] Calcium Carbonate (Calcium Carbonate 750 Mg Tab.Chew) 750 mg PO Q4H PRN PRN Reason: Heartburn Carvedilol (Carvedilol 6.25 Mg Tablet) 6.25 mg PO BID [facility]; Protocol Doxazosin Mesylate (Doxazosin Mesylate 2 Mg Tablet) 4 mg PO BEDTIME [facility]; Protocol Fluticasone/Umeclidinium/Vilanterol (Fluticasone/Umeclidinium/Vilanterol 200/62.5/25 Blst.W.Dev) 1 puff INHALE RDAILY [facility] Furosemide (Furosemide 40 Mg Tablet) 80 mg PO DAILY [facility]; Protocol Heparin Sodium (Porcine) (Heparin Sodium,Porcine 5,000 Unit/Ml Vial) 5,000 unit SUBCUT Q12H [facility] Last Admin: 11/29/23 06:10 Dose: 5,000 unit Documented By: YEFRI Hydralazine HCl (Hydralazine Hcl 50 Mg Tablet) 50 mg PO TID [facility]; Protocol Last Admin: 11/28/23 21:34 Dose: 50 mg Documented By: YEFRI Hydromorphone HCl (Hydromorphone Hcl 0.5 Mg/0.5 Ml Syringe) 0.5 mg IVPUSH Q4H PRN; Protocol PRN Reason: Pain, Severe (Pain Scale 7-10) Last Admin: 11/29/23 06:17 Dose: 0.5 mg Documented By: YEFRI Cefepime HCl 2 gm/ Sodium (Chloride) 50 mls @ 100 mls/hr IV Q48H [facility] Vancomycin HCl 500 mg/ Sodium (Chloride) 110 mls @ 110 mls/hr IV MoWeFr@1800 [facility] Insulin Glargine (Insulin Glargine,Hum.Rec.Anlog 100 Unit/Ml 10 Ml Vial) 22 unit SUBCUT BEDTIME [facility] Insulin Human Lispro (Insulin Lispro 100 Unit/Ml 3 Ml Vial) 1 unit SUBCUT TIDAC [facility] Losartan Potassium (Losartan Potassium 25 Mg Tablet) 25 mg PO DAILY [facility]; Protocol Magnesium Hydroxide (Milk Of Magnesia 30 Ml Oral.Susp) 30 ml PO DAILY PRN PRN Reason: Constipation Omeprazole (Omeprazole 20 Mg Capsule.Dr) 20 mg PO DAILY@0630 [facility] Pharmacy Consult (Consult Rx Vancomycin Dosing) 1 each MISCELLANE DAILY PRN PRN Reason: Consult order Pregabalin (Pregabalin 75 Mg Capsule) 75 mg PO DAILY [facility] Senna/Docusate Sodium (Sennosides/Docusate Sodium Tablet) 1 tab PO DAILY PRN PRN Reason: Constipation Labs 11/29/23 04:55 11/29/23 04:55 Labs: Laboratory Results - last 24 hr 11/28/23 11/28/23 11/28/23 07:10 10:34 14:00 MCV MCH MCHC RDW Plt Count MPV Immature Gran % (Auto) Neut % (Auto) Lymph % (Auto) Slope % (Auto) Eos % (Auto) Baso % (Auto) Lymph # (Auto) Slope # (Auto) Eos # (Auto) Baso # (Auto) Abs Immat Gran (auto) Absolute Neuts (auto) Absolute Nucleated RBC Nucleated RBC % (auto) Anion Gap 22 H Estim Creat Clear Calc 9.1 Estimated GFR 7 POC Glucose Random Glucose 127 H Lactic Acid 0.6 Calcium 9.7 Total Bilirubin 0.5 AST 26 ALT 31 Alkaline Phosphatase 188 H Lactate Dehydrogenase 416 H Troponin I High Sens 76.0 H B-Natriuretic Peptide 2704 H Total Protein 8.3 H Albumin 4.1 Procalcitonin 0.55 Pleural WBC 33.248 Pleural RBC 0.328 Pleural Neutrophils 80 Pleural Lymphocytes 2 Pleural Monocytes 8 Pleural Other Cells 10 Influenza Type A (PCR) NEGATIVE Influenza Type B (PCR) NEGATIVE RSV RNA Qual (PCR) NEGATIVE SARS-CoV-2 RNA (RT-PCR) NEGATIVE 11/29/23 11/29/23 04:55 07:22 MCV 77.7 L MCH 22.8 L MCHC 29.3 L RDW 16.9 H Plt Count 226 MPV 11.1 Immature Gran % (Auto) 0.4 Neut % (Auto) 72.8 Lymph % (Auto) 12.9 L Slope % (Auto) 8.8 Eos % (Auto) 4.6 H Baso % (Auto) 0.5 Lymph # (Auto) 1.1 L Slope # (Auto) 0.8 Eos # (Auto) 0.4 Baso # (Auto) 0.0 Abs Immat Gran (auto) 0.03 Absolute Neuts (auto) 6.2 Absolute Nucleated RBC 0.030 H Nucleated RBC % (auto) 0.4 H Anion Gap 20 Estim Creat Clear Calc 7.3 Estimated GFR 6 POC Glucose 83 Random Glucose 101 Lactic Acid Calcium 9.1 D Total Bilirubin AST ALT Alkaline Phosphatase Lactate Dehydrogenase Troponin I High Sens B-Natriuretic Peptide Total Protein Albumin Procalcitonin Pleural WBC Pleural RBC Pleural Neutrophils Pleural Lymphocytes Pleural Monocytes Pleural Other Cells Influenza Type A (PCR) Influenza Type B (PCR) RSV RNA Qual (PCR) SARS-CoV-2 RNA (RT-PCR) Microbiology Microbiology Results: Microbiology 11/28/23 14:00 Gram Stain - Final Pleural Fluid Assessment and Plan (1) Hypertensive urgency: Status: Acute (2) Recurrent pleural effusion on right: Status: Acute (3) Exudative pleural effusion: Status: Acute Plan 68-year-old male with history of ESRD on HD MWF on kidney transplant list (Dr. Shea), insulin-dependent type 2 diabetes, hypertension, hyperlipidemia, ROBERT on CPAP, heart failure with reduced ejection fraction EF 35% and grade 2 diastolic dysfunction to be observed for recurrent pleural effusion. #Recurrent pleural effusion due to decompensated HFrEF with acute hypoxemic respiratory failure, ?superimposed infectious etiology -had pleur-x catheter placed 07/12, removed [address] chest shows moderate R effusion that is slightly smaller, with air now observed in the pleural space, likely 2/2 tube removal -Pleural fluid analysis 09/2023 showed elevated WBC wtih 96% PMNs. treated with abx -Per thoracic surgery, chest tube placed by IR, fluid analysis pending -cover empirically with cefepime, vanco (initiated 11/27). Check MRSA nasal swab -continue supplemental O2 to maintain oximetry 90-92% -thoracic surgery following # uncontrolled hypertension in setting of ESRD -resume home meds, increase hydralazine to 75 tid -PRN hydralazine #ESRD on HD MWF -Follows with Dr. swanson, nephro consult # elevated troponin -has chronically elevated troponin levels. -no anginal chest pain -likely demand due to uncontrolled hypertension as well as end-stage renal disease # heart failure reduced ejection fraction -does not appear to be acutely exacerbated -continue po diuretics # insulin-dependent type 2 diabetes -dose adjusted basal insulin, lantus at bedtime -Admelog on sliding scale, -POC glucose, diabetic diet #ROBERT -cpap/nocturnal o2 #Moderate persistent asthma -no exacerbation, continue home inhalers, albuterol prn DVT prophylaxis-heparin Full code need for inpt: management of recurrent pleural effusion with acute hypoxemic respiratory failure requiring chest tube placement, expert consultation, and will need inpt HD on admission Quality Stroke Does the patient have a stroke diagnosis?: No VTE Prior VTE?: No VTE Risk Level:: Medical - moderate - high VTE Device Contraindication: Treatment Not Indicated VTE Drug Contraindication: N/A - Med Ordered
--- NOTE | 2023-11-29 07:52 | HO.THORCON_ITS ---
History of Present Illness Consult details Consult date: 11/28/23 Narrative: Patient is a 68-year-old male whom I know from the past who has a collection of comorbidities and intercurrent medical problems including a recurrent right pleural effusion. He had a PleurX catheter placed several months ago and had good function of this for his symptomatic right pleural effusion. There were some issues that developed including loculated fluid as well as kinking of the tube and a according to the patient this PleurX cath was removed at [facility] roughly 2 weeks ago. He presents here not unexpectedly with a recurrent symptomatic right pleural effusion. Chest x-ray followed by CT scan demonstrate the recurrent pleural effusion. Patient has moderate dyspnea related to a combination of this and his tenuous cardiac status. Chart was reviewed and patient evaluated PMFSH Past Medical History Medical History Chronic combined systolic and diastolic CHF (congestive heart failure) Chronic pericardial effusion Arthritis Asthma Restless leg syndrome Acute on chronic systolic and diastolic heart failure, NYHA class 3 Anemia Occlusive thrombus Pulmonary edema ROBERT (obstructive sleep apnea) Type 2 diabetes mellitus Hyperlipidemia Hypertension A-V fistula ESRD on dialysis Falling Family History Family History Father No problems noted. Mother No problems noted. Surgical History Surgical History Recurrent pleural effusion Pleural effusion on right (07/13/23) History of surgery H/O colonoscopy Social History Social History Household Members: Children Household Members Other:: son Housing: Apartment Do you presently have visiting nurse or other home services: No Alcohol intake: never Comment: counts correct Patient Tobacco Use Status: Former Tobacco user Tobacco use type: Cigarette Smoked in Last 30 Days: No Use of substances other than those prescribed or required for medical reasons: No Advance Directives: Yes Advance Directives on File: Yes Advance Directives Date on File: 10/04/23 Nutrition Risks: No Nutritional Risk service: No Meds Allergies Allergy/AdvReac Type Severity Reaction Status Date / Time No Known Allergies Allergy Verified 11/28/23 07:13 Active Medications: Current Medications Acetaminophen (Acetaminophen 325 Mg Tablet) 650 mg PO Q6H PRN PRN Reason: Pain, Mild (Pain Scale 1-3), fever or headache Albuterol Sulfate (Albuterol Sulfate 90 Mcg 8 Gm Inhaler) 2 puff INHALE Q4H PRN PRN Reason: Shortness Of Breath Albuterol/Ipratropium (Albuterol/Iprat 2.5/0.5mg 3 Ml Ampul.Neb) 3 ml INHALE Q4H PRN PRN Reason: Wheezing Allopurinol (Allopurinol 100 Mg Tablet) 100 mg PO MOWEFR@1600 [facility] Aspirin (Aspirin Enteric Coated 81 Mg Tablet.Dr) 81 mg PO DAILY [facility] Atorvastatin Calcium (Atorvastatin Calcium 40 Mg Tablet) 40 mg PO DAILY [facility] Calcium Carbonate (Calcium Carbonate 750 Mg Tab.Chew) 750 mg PO Q4H PRN PRN Reason: Heartburn Carvedilol (Carvedilol 6.25 Mg Tablet) 6.25 mg PO BID [facility]; Protocol Doxazosin Mesylate (Doxazosin Mesylate 2 Mg Tablet) 4 mg PO BEDTIME [facility]; Protocol Fluticasone/Umeclidinium/Vilanterol (Fluticasone/Umeclidinium/Vilanterol 200/62.5/25 Blst.W.Dev) 1 puff INHALE RDAILY [facility] Furosemide (Furosemide 40 Mg Tablet) 80 mg PO DAILY [facility]; Protocol Heparin Sodium (Porcine) (Heparin Sodium,Porcine 5,000 Unit/Ml Vial) 5,000 unit SUBCUT Q12H [facility] Last Admin: 11/29/23 06:10 Dose: 5,000 unit Hydralazine HCl (Hydralazine Hcl 50 Mg Tablet) 50 mg PO TID [facility]; Protocol Last Admin: 11/28/23 21:34 Dose: 50 mg Hydromorphone HCl (Hydromorphone Hcl 0.5 Mg/0.5 Ml Syringe) 0.5 mg IVPUSH Q4H PRN; Protocol PRN Reason: Pain, Severe (Pain Scale 7-10) Last Admin: 11/29/23 06:17 Dose: 0.5 mg Cefepime HCl 2 gm/ Sodium (Chloride) 50 mls @ 100 mls/hr IV Q48H [facility] Vancomycin HCl 500 mg/ Sodium (Chloride) 110 mls @ 110 mls/hr IV MoWeFr@1800 [facility] Insulin Glargine (Insulin Glargine,Hum.Rec.Anlog 100 Unit/Ml 10 Ml Vial) 22 unit SUBCUT BEDTIME [facility] Insulin Human Lispro (Insulin Lispro 100 Unit/Ml 3 Ml Vial) 1 unit SUBCUT TIDAC [facility] Losartan Potassium (Losartan Potassium 25 Mg Tablet) 25 mg PO DAILY [facility]; Protocol Magnesium Hydroxide (Milk Of Magnesia 30 Ml Oral.Susp) 30 ml PO DAILY PRN PRN Reason: Constipation Omeprazole (Omeprazole 20 Mg Capsule.Dr) 20 mg PO DAILY@06 [facility] Pharmacy Consult (Consult Rx Vancomycin Dosing) 1 each MISCELLANE DAILY PRN PRN Reason: Consult order Pregabalin (Pregabalin 75 Mg Capsule) 75 mg PO DAILY [facility] Senna/Docusate Sodium (Sennosides/Docusate Sodium Tablet) 1 tab PO DAILY PRN PRN Reason: Constipation Home Medications ?Medication ?Instructions ?Recorded ?Confirmed ?Last Taken ?Type albuterol sulfate 90 mcg/actuation 2 puff inhalation Q4H PRN 04/19/22 11/28/23 Unknown History aerosol inhaler Shortness Of Breath allopurinol 100 mg tablet 100 mg PO MOWEFR@1600 04/19/22 11/28/23 11/27/23 History atorvastatin 40 mg tablet 40 mg PO DAILY 04/19/22 11/28/23 11/27/23 History doxazosin 4 mg tablet 4 mg PO BEDTIME 04/19/22 11/28/23 11/27/23 History furosemide 80 mg tablet 80 mg PO DAILY 04/19/22 11/28/23 11/27/23 History ipratropium 0.5 mg-albuterol 3 mg 3 ml inhalation Q4H PRN Wheezing 04/19/22 11/28/23 Unknown History (2.5 mg base)/3 mL nebulization soln omeprazole 20 mg capsule,delayed 20 mg PO DAILY@0630 04/19/22 11/28/23 11/27/23 History release sennosides 8.6 mg-docusate sodium 1 tab PO DAILY PRN Constipation 04/19/22 11/28/23 04/19/22 History 50 mg tablet (Senna-Time S) insulin glargine 100 unit/mL (3 22 unit subcut BEDTIME 04/10/23 11/28/23 11/27/23 History mL) subcutaneous pen (Lantus Solostar U-100 Insulin) insulin lispro 100 unit/mL 1 sliding scale dose subcut TIDAC 04/10/23 11/28/23 11/27/23 History subcutaneous pen aspirin 81 mg tablet,delayed 81 mg PO DAILY 06/20/23 11/28/23 11/27/23 History release pregabalin 75 mg capsule 75 mg PO DAILY 06/20/23 11/28/23 11/27/23 History fluticasone fur. 200 mcg-umeclid 1 ea inhalation DAILY 09/30/23 11/28/23 11/27/23 History 62.5 mcg-vilant 25 mcg inhalat.powder (Trelegy Ellipta) hydralazine 50 mg tablet 50 mg PO TID 09/30/23 11/28/23 11/27/23 History Physical Exam 2 Vital Signs: Vital Signs: Last Vital Signs Temp 98.5 F 11/29/23 07:20 Pulse 72 11/29/23 07:20 Resp 14 11/29/23 07:20 BP 191/77 H 11/29/23 07:20 Pulse Ox 94 11/29/23 07:20 O2 Del Method Nasal Cannula 11/29/23 07:20 O2 Flow Rate 3 11/29/23 07:20 BMI result Body Mass Index 29.1 Chest: Other: Diminished breath sounds right most likely related to the patient's recurrent pleural effusion. PleurX catheter incision sites clean dry and intact Results Labs 11/29/23 04:55 11/29/23 04:55 Labs: Abnormal lab results 11/28/23 11/29/23 Range/Units 07:10 04:55 RBC 4.26 L (4.60-5.80) X10*6/uL Hgb 9.7 L (14.0-18.0) g/dl Hct 33.1 L (42.0-52.0) % MCV 77.7 L (80.0-98.0) fL MCH 22.8 L (27.0-33.0) pg MCHC 29.3 L (31.0-36.0) g/dl RDW 16.9 H (11.0-16.0) % Lymph % (Auto) 12.9 L (20-40) % Eos % (Auto) 4.6 H (0-4) % Lymph # (Auto) 1.1 L (1.2-4.9) X10*3/uL Absolute Nucleated RBC 0.030 H (0.0-0.012) X10*3/uL Nucleated RBC % (auto) 0.4 H (0.0-0.2) /100WBC BUN 53 H (9-16) mg/dL Creatinine 9.19 H* (0.5-1.4) mg/dL Lactate Dehydrogenase 416 H (118-273) U/L Troponin I High Sens 76.0 H (<3.5-35.0) ng/L B-Natriuretic Peptide 2704 H (<100) pg/mL Short CBC 11/29/23 Range/Units 04:55 WBC 8.5 (4.8-10.8) X10*3/uL Hgb 9.7 L (14.0-18.0) g/dl Hct 33.1 L (42.0-52.0) % Plt Count 226 (160-400) X10*3/uL BMP 11/29/23 04:55 Sodium 144 Potassium 4.6 Chloride 106 Carbon Dioxide 23 BUN 53 H Creatinine 9.19 H* Calcium 9.1 D All other labs normal. Assessment and Plan (1) Recurrent pleural effusion on right: Status: Acute Plan Current recommendation is for IR consultation for chest tube placement under CT guidance. Further interventions studies will be directed by the patient's clinical response and course following this. Procedures Date of Service Date of Service: 11/29/23
[2023-11-29] MEDS: Losartan Potassium 25 MG TABLET PO (07:55)
[2023-11-29] MEDS: carvediloL 6.25 MG TABLET PO ×2 (07:55→19:57)
[2023-11-29] MEDS: hydrALAZINE HCl 50 MG TABLET PO ×2 (07:55→15:15)
--- NOTE | 2023-11-29 07:55 | PM.PNTS ---
Subjective Subjective Date of Service: 11/29/23 Interval history: Patient is status post chest tube placement by IR. He states that his respiratory symptoms have markedly improved. Current Pleur-evac has several 100 cc of serosanguineous fluid. I am unable to find documentation regarding amount of pleural fluid retrieved from original chest tube placement. Physical Exam Vital Signs: Vital Signs: Last Vital Signs Temp 98.5 F 11/29/23 07:20 Pulse 72 11/29/23 07:20 Resp 14 11/29/23 07:20 BP 191/77 H 11/29/23 07:20 Pulse Ox 94 11/29/23 07:20 O2 Del Method Nasal Cannula 11/29/23 07:20 O2 Flow Rate 3 11/29/23 07:20 BMI result Body Mass Index 29.1 Chest: Other: Chest tube dressing clean dry and intact. Chest tube drainage /Pleur-evac as noted above. Procedures Date of Service Date of Service: 11/29/23 Progress Note: A&P Assessment and plan (1) Recurrent pleural effusion on right: Status: Acute Plan Continue current plan. Can consider pleurodesis/sclerosis if this has not been done in the past. Time Spent With Patient Time: Total time managing care of this patient today ____ minutes. Quality Stroke Does the patient have a stroke diagnosis?: No VTE Prior VTE?: No VTE Risk Level:: Medical - moderate - high VTE Device Contraindication: Treatment Not Indicated VTE Drug Contraindication: N/A - Med Ordered
--- NOTE | 2023-11-29 09:17 | PC.NURSE ---
patient to dialysis
[2023-11-29 11:02] LABS: MRSA Nasal PCR POSITIVE (Negative); SA Nasal PCR POSITIVE (Negative)
--- NOTE | 2023-11-29 12:17 | PC.NURSE ---
patient back from dialysis, patient is alert and oriented , states dialysis went well. VSS, respirations equal and unlabored, chest tube dressing dry and intact, chest tube draining pinkish/red drainage. patient dialysis port covered, dressing dry/intact and labeled.
--- NOTE | 2023-11-29 12:18 | P.CONNP_ITS ---
History of Present Illness Reason for Consult Consult date: 11/29/23 Chief Complaint Chief complaint: recurrent pleural effusion, hypoxia History of Present Illness Narrative: 68 year old patient with history of ESRD admitted with recurrent pleural effusion. At the time of the consultation he denies shortness of breath and just completed his dialysis treatment. Review of Systems Review of Systems 10 points ROS negative except for pertinent in HPI PMFSH Past Medical History Medical History (Updated 11/29/23 @ 12:21 by Kole Escobedo MD) Anemia ESRD (end stage renal disease) Chronic combined systolic and diastolic CHF (congestive heart failure) Chronic pericardial effusion Arthritis Asthma Restless leg syndrome Acute on chronic systolic and diastolic heart failure, NYHA class 3 Occlusive thrombus Pulmonary edema ROBERT (obstructive sleep apnea) Type 2 diabetes mellitus Hyperlipidemia Hypertension A-V fistula ESRD on dialysis Falling Family History Family History Father No problems noted. Mother No problems noted. Surgical History Surgical History Recurrent pleural effusion Pleural effusion on right (07/13/23) History of surgery H/O colonoscopy Social History Social History Household Members: Children Household Members Other:: son Housing: Apartment Do you presently have visiting nurse or other home services: No Alcohol intake: never Comment: counts correct Patient Tobacco Use Status: Former Tobacco user Tobacco use type: Cigarette Smoked in Last 30 Days: No Use of substances other than those prescribed or required for medical reasons: No Advance Directives: Yes Advance Directives on File: Yes Advance Directives Date on File: 10/04/23 Nutrition Risks: No Nutritional Risk service: No Meds Allergies Allergy/AdvReac Type Severity Reaction Status Date / Time No Known Allergies Allergy Verified 11/28/23 07:13 Active Medications: Current Medications Acetaminophen (Acetaminophen 325 Mg Tablet) 650 mg PO Q6H PRN PRN Reason: Pain, Mild (Pain Scale 1-3), fever or headache Albuterol Sulfate (Albuterol Sulfate 90 Mcg 8 Gm Inhaler) 2 puff INHALE Q4H PRN PRN Reason: Shortness Of Breath Albuterol/Ipratropium (Albuterol/Iprat 2.5/0.5mg 3 Ml Ampul.Neb) 3 ml INHALE Q4H PRN PRN Reason: Wheezing Allopurinol (Allopurinol 100 Mg Tablet) 100 mg PO MOWEFR@1600 [facility] Aspirin (Aspirin Enteric Coated 81 Mg Tablet.Dr) 81 mg PO DAILY [facility] Atorvastatin Calcium (Atorvastatin Calcium 40 Mg Tablet) 40 mg PO DAILY [facility] Calcium Carbonate (Calcium Carbonate 750 Mg Tab.Chew) 750 mg PO Q4H PRN PRN Reason: Heartburn Carvedilol (Carvedilol 6.25 Mg Tablet) 6.25 mg PO BID [facility]; Protocol Last Admin: 11/29/23 07:55 Dose: 6.25 mg Doxazosin Mesylate (Doxazosin Mesylate 2 Mg Tablet) 4 mg PO BEDTIME [facility]; Protocol Fluticasone/Umeclidinium/Vilanterol (Fluticasone/Umeclidinium/Vilanterol 200/62.5/25 Blst.W.Dev) 1 puff INHALE RDAILY [facility] Last Admin: 11/29/23 08:32 Dose: Not Given Furosemide (Furosemide 40 Mg Tablet) 80 mg PO DAILY [facility]; Protocol Heparin Sodium (Porcine) (Heparin Sodium,Porcine 5,000 Unit/Ml Vial) 5,000 unit SUBCUT Q12H [facility] Last Admin: 11/29/23 06:10 Dose: 5,000 unit Hydralazine HCl (Hydralazine Hcl 50 Mg Tablet) 50 mg PO TID [facility]; Protocol Last Admin: 11/29/23 07:55 Dose: 50 mg Hydromorphone HCl (Hydromorphone Hcl 0.5 Mg/0.5 Ml Syringe) 0.5 mg IVPUSH Q4H PRN; Protocol PRN Reason: Pain, Severe (Pain Scale 7-10) Last Admin: 11/29/23 06:17 Dose: 0.5 mg Cefepime HCl 2 gm/ Sodium (Chloride) 50 mls @ 100 mls/hr IV Q48H [facility] Vancomycin HCl 500 mg/ Sodium (Chloride) 110 mls @ 110 mls/hr IV MoWeFr@1800 [facility] Insulin Glargine (Insulin Glargine,Hum.Rec.Anlog 100 Unit/Ml 10 Ml Vial) 22 unit SUBCUT BEDTIME [facility] Insulin Human Lispro (Insulin Lispro 100 Unit/Ml 3 Ml Vial) 0 unit SUBCUT QIDACHS [facility]; Protocol Last Admin: 11/29/23 08:44 Dose: Not Given Losartan Potassium (Losartan Potassium 25 Mg Tablet) 25 mg PO DAILY [facility]; Protocol Last Admin: 11/29/23 07:55 Dose: 25 mg Magnesium Hydroxide (Milk Of Magnesia 30 Ml Oral.Susp) 30 ml PO DAILY PRN PRN Reason: Constipation Omeprazole (Omeprazole 20 Mg Capsule.Dr) 20 mg PO DAILY@0630 [facility] Pharmacy Consult (Consult Rx Vancomycin Dosing) 1 each MISCELLANE DAILY PRN PRN Reason: Consult order Pregabalin (Pregabalin 75 Mg Capsule) 75 mg PO DAILY [facility] Senna/Docusate Sodium (Sennosides/Docusate Sodium Tablet) 1 tab PO DAILY PRN PRN Reason: Constipation Home Medications ?Medication ?Instructions ?Recorded ?Confirmed ?Last Taken ?Type albuterol sulfate 90 mcg/actuation 2 puff inhalation Q4H PRN 04/19/22 11/28/23 Unknown History aerosol inhaler Shortness Of Breath allopurinol 100 mg tablet 100 mg PO MOWEFR@1600 04/19/22 11/28/23 11/27/23 History atorvastatin 40 mg tablet 40 mg PO DAILY 04/19/22 11/28/23 11/27/23 History doxazosin 4 mg tablet 4 mg PO BEDTIME 04/19/22 11/28/23 11/27/23 History furosemide 80 mg tablet 80 mg PO DAILY 04/19/22 11/28/23 11/27/23 History ipratropium 0.5 mg-albuterol 3 mg 3 ml inhalation Q4H PRN Wheezing 04/19/22 11/28/23 Unknown History (2.5 mg base)/3 mL nebulization soln omeprazole 20 mg capsule,delayed 20 mg PO DAILY@0630 04/19/22 11/28/23 11/27/23 History release sennosides 8.6 mg-docusate sodium 1 tab PO DAILY PRN Constipation 04/19/22 11/28/23 04/19/22 History 50 mg tablet (Senna-Time S) insulin glargine 100 unit/mL (3 22 unit subcut BEDTIME 04/10/23 11/28/23 11/27/23 History mL) subcutaneous pen (Lantus Solostar U-100 Insulin) insulin lispro 100 unit/mL 1 sliding scale dose subcut TIDAC 04/10/23 11/28/23 11/27/23 History subcutaneous pen aspirin 81 mg tablet,delayed 81 mg PO DAILY 06/20/23 11/28/23 11/27/23 History release pregabalin 75 mg capsule 75 mg PO DAILY 06/20/23 11/28/23 11/27/23 History fluticasone fur. 200 mcg-umeclid 1 ea inhalation DAILY 09/30/23 11/28/23 11/27/23 History 62.5 mcg-vilant 25 mcg inhalat.powder (Trelegy Ellipta) hydralazine 50 mg tablet 50 mg PO TID 09/30/23 11/28/23 11/27/23 History Physical Exam Vital Signs: Last Vital Signs Temp 97.5 F 11/29/23 12:15 Pulse 67 11/29/23 12:15 Resp 16 11/29/23 12:15 BP 189/75 H 11/29/23 12:15 Pulse Ox 93 11/29/23 12:15 O2 Del Method Nasal Cannula 11/29/23 12:15 O2 Flow Rate 3 11/29/23 12:15 BMI result Body Mass Index 29.1 Const General: alert and awake HEENT Head: Yes normocephalic and Yes atraumatic Neck Neck: Yes supple Resp Auscultation: diminished lung sounds Cardio Heart sounds: S1 normal heart sound present and S2 normal heart sound present GI Palpation (GI): Soft to palpation and nontender Extrem General: Yes no pedal edema Results Lab Results 11/29/23 04:55 11/29/23 04:55 Lab results: Chemistry 11/28/23 11/29/23 07:10 04:55 Sodium 146 H 144 Potassium 4.7 4.6 Carbon Dioxide 23 23 BUN 35 H 53 H Creatinine 7.35 H* 9.19 H* Calcium 9.7 9.1 D Hematology 11/28/23 11/29/23 07:10 04:55 WBC 11.1 H 8.5 Hgb 10.5 L 9.7 L Plt Count 248 226 Assessment and Plan (1) ESRD (end stage renal disease): Status: Acute (2) Recurrent pleural effusion on right: Status: Acute (3) HFrEF (heart failure with reduced ejection fraction): Status: Acute (4) Anemia: Status: Acute Plan known ESRD on HD -- on transplant list followed by kidney care admitted with recurrent pleural effusion LVEF 35% REC HD today optimize volume status renal diet P binders NAYE per protocol Procedures Date of Service Date of Service: 11/29/23
[2023-11-29] MEDS: Furosemide 40 MG TABLET 80 MG PO (12:51)
[2023-11-29] MEDS: Atorvastatin Calcium 40 MG TABLET PO (12:51)
[2023-11-29] MEDS: Aspirin Enteric Coated 81 MG TABLET.DR PO (12:51)
[2023-11-29] MEDS: Pregabalin 75 MG CAPSULE PO (12:52)
[2023-11-29 12:58] LABS: Glucose, Whole Blood 104 mg/dL (60-115)
--- NOTE | 2023-11-29 13:06 | MHC.CM.PN ---
PT LIVES WITH HIS SON WHO IS HIS COKEMAN AND HCP PT GOES TO DIALYSISIS IN [facility] Mon AND MON PT HAS A ;LOCK BOX MANAGED THRU [facility] SON TO TRANSPORT HOME
[2023-11-29] MEDS: allopurinoL 100 MG TABLET PO (15:15)
[2023-11-29] MEDS: cefEPime HCl 2 GM in 0.9 % Sodium Chloride 50 ML IV (15:15)
[2023-11-29 17:08] LABS: Glucose, Whole Blood 144 mg/dL (60-115)
[2023-11-29] MEDS: hydrALAZINE HCl 25 MG TABLET 75 MG PO (19:57)
[2023-11-29] MEDS: Doxazosin Mesylate 2 MG TABLET 4 MG PO (19:57)
[2023-11-29 20:19] LABS: Glucose, Whole Blood 161 mg/dL (60-115)
[2023-11-29] MEDS: Insulin Glargine,Hum.rec.anlog 100 UNIT/ML 10 ML VIAL 22 UNIT SUBCUT (20:56)
[2023-11-29] MEDS: Insulin Lispro 100 UNIT/ML 3 ML VIAL SUBCUT (20:57)
[2023-11-30] VITALS (8 sets, daily range): BP systolic 145–172; BP diastolic 58–85; PULSE 68–90; RESP 6–18; TEMP 36.5–36.9; O2SAT 93–97
[2023-11-30] MEDS: Heparin Sodium,Porcine 5,000 UNIT/ML VIAL 5000 UNIT SUBCUT ×2 (06:13→16:29)
[2023-11-30] MEDS: Omeprazole 20 MG CAPSULE.DR PO (06:14)
[2023-11-30 07:30] LABS: Glucose, Whole Blood 101 mg/dL (60-115)
[2023-11-30] MEDS: hydrALAZINE HCl 50 MG TABLET 100 MG PO ×3 (07:54→21:39)
[2023-11-30] MEDS: Pregabalin 75 MG CAPSULE PO (07:54)
[2023-11-30] MEDS: Aspirin Enteric Coated 81 MG TABLET.DR PO (07:54)
[2023-11-30] MEDS: carvediloL 6.25 MG TABLET PO ×2 (07:54→21:40)
[2023-11-30] MEDS: Atorvastatin Calcium 40 MG TABLET PO (07:54)
[2023-11-30] MEDS: Furosemide 40 MG TABLET 80 MG PO (07:54)
[2023-11-30] MEDS: Losartan Potassium 25 MG TABLET PO (07:54)
[2023-11-30] MEDS: HYDROmorphone HCl 0.5 MG/0.5 ML SYRINGE IVPUSH ×2 (07:55→21:51)
[2023-11-30] MEDS: Fluticasone/Umeclidinium/Vilanterol 200/62.5/25 BLST.W.DEV 1 PUFF INHALE (08:55)
--- NOTE | 2023-11-30 09:54 | P.PNIM_ITS ---
Subjective Subjective Date of Service: 11/30/23 Interval History: f/u on pleural effusion, acute hypoxic respiratory failure and accelerated HTN he's feeling better, no sob , chest tube in place and draining adequately. report mild blood from nose Physical Exam 2 Vital Signs: Vital Signs: Last Vital Signs Temp 98.4 F 11/30/23 07:29 Pulse 90 11/30/23 08:57 Resp 6 L 11/30/23 08:57 BP 147/60 H 11/30/23 07:29 Pulse Ox 96 11/30/23 07:29 O2 Del Method Nasal Cannula 11/30/23 07:29 O2 Flow Rate 2 11/30/23 07:29 BMI result Body Mass Index 28.6 Const: Other: General: AO X 3, no acute distress Resp: CTA bilateral, chest tube in place CVS: S1,S2,RRR GI: +BS, NT, no distention Skin: No rash Neuro: motor grossly intact Psych: appropriate affect Objective Data Active Medications Acetaminophen (Acetaminophen 325 Mg Tablet) 650 mg PO Q6H PRN PRN Reason: Pain, Mild (Pain Scale 1-3), fever or headache Albuterol Sulfate (Albuterol Sulfate 90 Mcg 8 Gm Inhaler) 2 puff INHALE Q4H PRN PRN Reason: Shortness Of Breath Albuterol/Ipratropium (Albuterol/Iprat 2.5/0.5mg 3 Ml Ampul.Neb) 3 ml INHALE Q4H PRN PRN Reason: Wheezing Allopurinol (Allopurinol 100 Mg Tablet) 100 mg PO MOWEFR@1600 [facility] Last Admin: 11/29/23 15:15 Dose: 100 mg Documented By: MARY Aspirin (Aspirin Enteric Coated 81 Mg Tablet.) 81 mg PO DAILY [facility] Last Admin: 11/30/23 07:54 Dose: 81 mg Documented By: DAINA Atorvastatin Calcium (Atorvastatin Calcium 40 Mg Tablet) 40 mg PO DAILY [facility] Last Admin: 11/30/23 07:54 Dose: 40 mg Documented By: DAINA Calcium Carbonate (Calcium Carbonate 750 Mg Tab.Chew) 750 mg PO Q4H PRN PRN Reason: Heartburn Carvedilol (Carvedilol 6.25 Mg Tablet) 6.25 mg PO BID [facility]; Protocol Last Admin: 11/30/23 07:54 Dose: 6.25 mg Documented By: DAINA Doxazosin Mesylate (Doxazosin Mesylate 2 Mg Tablet) 4 mg PO BEDTIME [facility]; Protocol Last Admin: 11/29/23 19:57 Dose: 4 mg Documented By: MYLENE Fluticasone/Umeclidinium/Vilanterol (Fluticasone/Umeclidinium/Vilanterol 200/62.5/25 Blst.W.Dev) 1 puff INHALE RDAILY [facility] Last Admin: 11/30/23 08:55 Dose: 1 puff Documented By: MINNA Furosemide (Furosemide 40 Mg Tablet) 80 mg PO DAILY [facility]; Protocol Last Admin: 11/30/23 07:54 Dose: 80 mg Documented By: DAINA Heparin Sodium (Porcine) (Heparin Sodium,Porcine 5,000 Unit/Ml Vial) 5,000 unit SUBCUT Q12H [facility] Last Admin: 11/30/23 06:13 Dose: 5,000 unit Documented By: MYLENE Hydralazine HCl (Hydralazine Hcl 50 Mg Tablet) 100 mg PO TID [facility]; Protocol Last Admin: 11/30/23 07:54 Dose: 100 mg Documented By: DAINA Hydromorphone HCl (Hydromorphone Hcl 0.5 Mg/0.5 Ml Syringe) 0.5 mg IVPUSH Q4H PRN; Protocol PRN Reason: Pain, Severe (Pain Scale 7-10) Last Admin: 11/30/23 07:55 Dose: 0.5 mg Documented By: DAINA Vancomycin HCl 500 mg/ Sodium (Chloride) 110 mls @ 110 mls/hr IV MoWeFr@1800 [facility] Cefepime HCl 1 gm/ Sodium (Chloride) 50 mls @ 100 mls/hr IV Q24H [facility] Insulin Glargine (Insulin Glargine,Hum.Rec.Anlog 100 Unit/Ml 10 Ml Vial) 22 unit SUBCUT BEDTIME [facility] Last Admin: 11/29/23 20:56 Dose: 22 unit Documented By: MYLENE Insulin Human Lispro (Insulin Lispro 100 Unit/Ml 3 Ml Vial) 0 unit SUBCUT QIDACHS [facility]; Protocol Last Admin: 11/30/23 07:31 Dose: Not Given Documented By: DAINA Non-Admin Reason: No Insulin Coverage Losartan Potassium (Losartan Potassium 25 Mg Tablet) 25 mg PO DAILY [facility]; Protocol Last Admin: 11/30/23 07:54 Dose: 25 mg Documented By: DAINA Magnesium Hydroxide (Milk Of Magnesia 30 Ml Oral.Susp) 30 ml PO DAILY PRN PRN Reason: Constipation Omeprazole (Omeprazole 20 Mg Capsule.) 20 mg PO DAILY@0630 [facility] Last Admin: 11/30/23 06:14 Dose: 20 mg Documented By: MYLENE Pharmacy Consult (Consult Rx Vancomycin Dosing) 1 each MISCELLANE DAILY PRN PRN Reason: Consult order Pregabalin (Pregabalin 75 Mg Capsule) 75 mg PO DAILY [facility] Last Admin: 11/30/23 07:54 Dose: 75 mg Documented By: DAINA Senna/Docusate Sodium (Sennosides/Docusate Sodium Tablet) 1 tab PO DAILY PRN PRN Reason: Constipation Labs 11/29/23 04:55 11/29/23 04:55 Labs: Laboratory Results - last 24 hr 11/29/23 11/29/23 11/29/23 00:07 12:55 16:22 POC Glucose 104 Nasal Screen MRSA (PCR) POSITIVE A Nasal S. aureus Screen POSITIVE A Nasal MRSA/S.aureus Interp SEE NOTE Random Vancomycin 18.0 11/29/23 11/29/23 11/30/23 16:54 20:15 07:27 POC Glucose 144 H 161 H 101 Nasal Screen MRSA (PCR) Nasal S. aureus Screen Nasal MRSA/S.aureus Interp Random Vancomycin Microbiology Microbiology Results: Microbiology 11/28/23 14:00 Gram Stain - Final Pleural Fluid Routine Culture - Final No growth after 2 days Anaerobic Culture - Preliminary No growth to date. 11/28/23 10:34 Blood Culture - Preliminary Blood - Venous No growth after 24 hours. 11/28/23 10:34 Blood Culture - Preliminary Blood - Venous No growth after 24 hours. Assessment and Plan (1) Hypertensive urgency: Status: Acute (2) Recurrent pleural effusion on right: Status: Acute (3) Exudative pleural effusion: Status: Acute Plan 68-year-old male with history of ESRD on HD MWF on kidney transplant list (Dr. Shea), insulin-dependent type 2 diabetes, hypertension, hyperlipidemia, ROBERT on CPAP, heart failure with reduced ejection fraction EF 35% and grade 2 diastolic dysfunction to be observed for recurrent pleural effusion. #Recurrent pleural effusion due to decompensated HFrEF with acute hypoxemic respiratory failure, ?superimposed infectious etiology -had pleur-x catheter placed 07/12, removed [address] chest shows moderate R effusion that is slightly smaller, with air now observed in the pleural space, likely 2/2 tube removal -Pleural fluid analysis 09/2023 showed elevated WBC wtih 96% PMNs. treated with abx -Per thoracic surgery, chest tube placed by IR, fluid analysis pending -cover empirically with cefepime, vanco (initiated 11/27). Check MRSA nasal swab -continue supplemental O2 to maintain oximetry 90-92% -thoracic surgery considering pleuredesis # uncontrolled hypertension in setting of ESRD -resume home meds, increase hydralazine to 100 tid -PRN hydralazine #ESRD on HD MWF -Follows with Dr. swanson, nephro consult # elevated troponin -has chronically elevated troponin levels. -no anginal chest pain -likely demand due to uncontrolled hypertension as well as end-stage renal disease # heart failure reduced ejection fraction -does not appear to be acutely exacerbated -continue po diuretics # insulin-dependent type 2 diabetes -dose adjusted basal insulin, lantus at bedtime -Admelog on sliding scale, -POC glucose, diabetic diet #ROBERT -cpap/nocturnal o2 #Moderate persistent asthma -no exacerbation, continue home inhalers, albuterol prn #espistaxis--mild probably from dry oxygen DVT prophylaxis-heparin Full code need for inpt: management of recurrent pleural effusion with acute hypoxemic respiratory failure requiring chest tube placement, expert consultation, and will need inpt HD on admission Quality Stroke Does the patient have a stroke diagnosis?: No VTE Prior VTE?: No VTE Risk Level:: Medical - moderate - high VTE Device Contraindication: Treatment Not Indicated VTE Drug Contraindication: N/A - Med Ordered
[2023-11-30 11:11] LABS: Glucose, Whole Blood 210 mg/dL (60-115)
[2023-11-30] MEDS: Insulin Lispro 100 UNIT/ML 3 ML VIAL SUBCUT ×2 (11:35→21:40)
--- NOTE | 2023-11-30 14:41 | PM.PNTS ---
Subjective Subjective Date of Service: 11/30/23 Interval history: Patient has no new respiratory symptoms. Pleur-evac a few 100 cc of serosanguineous fluid. No air leak. Physical Exam Vital Signs: Vital Signs: Last Vital Signs Temp 98.4 F 11/30/23 07:29 Pulse 90 11/30/23 08:57 Resp 16 11/30/23 10:21 BP 147/60 H 11/30/23 07:29 Pulse Ox 96 11/30/23 07:29 O2 Del Method Nasal Cannula 11/30/23 07:29 O2 Flow Rate 2 11/30/23 07:29 BMI result Body Mass Index 28.6 Chest: Other: Chest tube dressing clean dry and intact. 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 Unfortunately this was not amenable to tPA which has already been tried. Unfortunately, patient has also a prohibitive risk for a decortication because of his significant comorbidities including cardiac and renal issues. Pleurodesis would not be successful since the lung is trapped and can not fully expand. Patient was in a therapeutic conundrum because of his substantial intercurrent medical problems. At present continue current chest tube and wound drainage minimizes, we will remove the tube. All questions with the son and patient were answered. Plan as noted above. Time Spent With Patient Time: Total time managing care of this patient today ____ minutes. Quality Stroke Does the patient have a stroke diagnosis?: No VTE Prior VTE?: No VTE Risk Level:: Medical - moderate - high VTE Device Contraindication: Treatment Not Indicated VTE Drug Contraindication: N/A - Med Ordered
[2023-11-30 16:08] LABS: Glucose, Whole Blood 145 mg/dL (60-115)
[2023-11-30] MEDS: cefEPime HCl 1 GM in 0.9 % Sodium Chloride 50 ML IV (16:29)
[2023-11-30 20:16] LABS: Glucose, Whole Blood 210 mg/dL (60-115)
[2023-11-30] MEDS: Doxazosin Mesylate 2 MG TABLET 4 MG PO (21:39)
[2023-11-30] MEDS: Insulin Glargine,Hum.rec.anlog 100 UNIT/ML 10 ML VIAL 22 UNIT SUBCUT (21:40)
--- NOTE | 2023-12-01 01:27 | P.PNNP_ITS ---
Subjective Subjective Date of Service: 11/30/23 Interval history: Overall doing bwtter, CTube drainage decr Physical Exam 2 Vital Signs: Vital Signs: Last Vital Signs Temp 97.7 F 11/30/23 19:17 Pulse 71 11/30/23 19:17 Resp 18 11/30/23 19:17 BP 145/85 H 11/30/23 19:17 Pulse Ox 93 11/30/23 19:17 O2 Del Method Room Air 11/30/23 19:17 O2 Flow Rate 2 11/30/23 07:29 BMI result Body Mass Index 28.6 Const: General: alert and awake HEENT: Head: Yes normocephalic and Yes atraumatic Neck: Neck: Yes supple Resp: Auscultation: diminished lung sounds Cardio: Heart sounds: S1 normal heart sound present and S2 normal heart sound present GI: Palpation (GI): Soft to palpation and nontender Extrem: General: Yes no pedal edema Objective Data Labs 11/29/23 04:55 11/29/23 04:55 Labs: Laboratory Results - last 24 hr 11/30/23 11/30/23 11/30/23 07:27 11:02 16:03 POC Glucose 101 210 H 145 H 11/30/23 20:13 POC Glucose 210 H Microbiology Microbiology Results: Microbiology 11/28/23 14:00 Pleural Fluid Gram Stain - Final 11/28/23 14:00 Pleural Fluid Routine Culture - Final No growth after 2 days 11/28/23 14:00 Pleural Fluid Anaerobic Culture - Preliminary No growth to date. 11/28/23 10:34 Blood - Venous Blood Culture - Preliminary No growth after 48 hours. 11/28/23 10:34 Blood - Venous Blood Culture - Preliminary No growth after 48 hours. Procedures Date of Service Date of Service: 12/01/23 Assessment & Plan Assessment and plan (1) ESRD (end stage renal disease): Status: Acute (2) Recurrent pleural effusion on right: Status: Acute (3) HFrEF (heart failure with reduced ejection fraction): Status: Acute (4) Anemia: Status: Acute Plan 1, ESRD: on HD - on transplant list followed by kidney care 2. PL Effussion: s/p CTube; decr outptu and ques removal 3. HFrEFa LVEF 35% 4. Nephrogenic Anmeia: no need for EPO at this time RECL cont HD mwf, cont Phos bined and renal diet Will follow with team Time Spent With Patient Time: Total time managing care of this patient today ____ minutes. Progress Note: Quality Stroke Does the patient have a stroke diagnosis?: No
[2023-12-01] MEDS: HYDROmorphone HCl 0.5 MG/0.5 ML SYRINGE IVPUSH ×3 (03:42→17:05)
[2023-12-01 03:45] VITALS: BP 174/74; PULSE 68; RESP 18; TEMP 36.5; O2SAT 98
[2023-12-01 04:04] VITALS: BP 157/68
[2023-12-01] MEDS: Heparin Sodium,Porcine 5,000 UNIT/ML VIAL 5000 UNIT SUBCUT ×2 (05:58→17:04)
[2023-12-01] MEDS: Omeprazole 20 MG CAPSULE.DR PO (05:59)
[2023-12-01 07:42] LABS: Glucose, Whole Blood 146 mg/dL (60-115)
[2023-12-01] MEDS: Fluticasone/Umeclidinium/Vilanterol 200/62.5/25 BLST.W.DEV 1 PUFF INHALE ×2 (09:52→10:23)
--- NOTE | 2023-12-01 10:20 | MHC.CM.PN ---
Per MD rounds, patient not medically cleared for dc, likely tomorrow. [facility]. CM will continue to follow.
[2023-12-01] MEDS: Aspirin Enteric Coated 81 MG TABLET.DR PO (10:23)
[2023-12-01] MEDS: Atorvastatin Calcium 40 MG TABLET PO (10:23)
[2023-12-01] MEDS: Pregabalin 75 MG CAPSULE PO (10:23)
[2023-12-01] MEDS: hydrALAZINE HCl 50 MG TABLET 100 MG PO ×3 (10:23→21:19)
[2023-12-01] MEDS: carvediloL 6.25 MG TABLET PO ×2 (10:24→21:19)
[2023-12-01] MEDS: Furosemide 40 MG TABLET 80 MG PO (10:24)
[2023-12-01] MEDS: Losartan Potassium 25 MG TABLET PO (10:25)
--- NOTE | 2023-12-01 10:39 | P.PNIM_ITS ---
Subjective Subjective Date of Service: 12/01/23 Interval History: Overall doing bwtter, CTube drainage decr Physical Exam 2 Vital Signs: Vital Signs: Last Vital Signs Temp 97.7 F 12/01/23 03:45 Pulse 68 12/01/23 03:45 Resp 18 12/01/23 03:45 BP 157/68 H 12/01/23 04:04 Pulse Ox 98 12/01/23 03:45 O2 Del Method Nasal Cannula 12/01/23 03:45 O2 Flow Rate 2 12/01/23 03:45 BMI result Body Mass Index 28.6 Const: Other: General: AO X 3, no acute distress Resp: CTA bilateral, chest tube in place CVS: S1,S2,RRR GI: +BS, NT, no distention Skin: No rash Neuro: motor grossly intact Psych: appropriate affect Objective Data Active Medications Acetaminophen (Acetaminophen 325 Mg Tablet) 650 mg PO Q6H PRN PRN Reason: Pain, Mild (Pain Scale 1-3), fever or headache Albuterol Sulfate (Albuterol Sulfate 90 Mcg 8 Gm Inhaler) 2 puff INHALE Q4H PRN PRN Reason: Shortness Of Breath Albuterol/Ipratropium (Albuterol/Iprat 2.5/0.5mg 3 Ml Ampul.Neb) 3 ml INHALE Q4H PRN PRN Reason: Wheezing Allopurinol (Allopurinol 100 Mg Tablet) 100 mg PO MOWEFR@1600 COUNTS INCLUDE 234 BEDS AT THE [facility] Last Admin: 11/29/23 15:15 Dose: 100 mg Documented By: MARY Aspirin (Aspirin Enteric Coated 81 Mg Tablet.) 81 mg PO DAILY COUNTS INCLUDE 234 BEDS AT THE [facility] Last Admin: 12/01/23 10:23 Dose: 81 mg Documented By: MARY ANNE Atorvastatin Calcium (Atorvastatin Calcium 40 Mg Tablet) 40 mg PO DAILY COUNTS INCLUDE 234 BEDS AT THE [facility] Last Admin: 12/01/23 10:23 Dose: 40 mg Documented By: MARY ANNE Calcium Carbonate (Calcium Carbonate 750 Mg Tab.Chew) 750 mg PO Q4H PRN PRN Reason: Heartburn Carvedilol (Carvedilol 6.25 Mg Tablet) 6.25 mg PO BID COUNTS INCLUDE 234 BEDS AT THE [facility]; Protocol Last Admin: 12/01/23 10:24 Dose: 6.25 mg Documented By: MARY ANNE Doxazosin Mesylate (Doxazosin Mesylate 2 Mg Tablet) 4 mg PO BEDTIME [facility]; Protocol Last Admin: 11/30/23 21:39 Dose: 4 mg Documented By: MYLENE Fluticasone/Umeclidinium/Vilanterol (Fluticasone/Umeclidinium/Vilanterol 200/62.5/25 Blst.W.Dev) 1 puff INHALE RDAILY COUNTS INCLUDE 234 BEDS AT THE [facility] Last Admin: 12/01/23 10:23 Dose: 1 puff Documented By: MARY ANNE Furosemide (Furosemide 40 Mg Tablet) 80 mg PO DAILY COUNTS INCLUDE 234 BEDS AT THE [facility]; Protocol Last Admin: 12/01/23 10:24 Dose: 80 mg Documented By: MARY ANNE Heparin Sodium (Porcine) (Heparin Sodium,Porcine 5,000 Unit/Ml Vial) 5,000 unit SUBCUT Q12H COUNTS INCLUDE 234 BEDS AT THE [facility] Last Admin: 12/01/23 05:58 Dose: 5,000 unit Documented By: MYLENE Hydralazine HCl (Hydralazine Hcl 50 Mg Tablet) 100 mg PO TID [facility]; Protocol Last Admin: 12/01/23 10:23 Dose: 50 mg Documented By: MARY ANNE Hydromorphone HCl (Hydromorphone Hcl 0.5 Mg/0.5 Ml Syringe) 0.5 mg IVPUSH Q4H PRN; Protocol PRN Reason: Pain, Severe (Pain Scale 7-10) Last Admin: 12/01/23 03:42 Dose: 0.5 mg Documented By: MYLENE Vancomycin HCl 500 mg/ Sodium (Chloride) 110 mls @ 110 mls/hr IV MoWeFr@1800 [facility] Cefepime HCl 1 gm/ Sodium (Chloride) 50 mls @ 100 mls/hr IV Q24H COUNTS INCLUDE 234 BEDS AT THE [facility] Last Infusion: 11/30/23 17:03 Dose: Infused Documented By: DAINA Insulin Glargine (Insulin Glargine,Hum.Rec.Anlog 100 Unit/Ml 10 Ml Vial) 22 unit SUBCUT BEDTIME COUNTS INCLUDE 234 BEDS AT THE [facility] Last Admin: 11/30/23 21:40 Dose: 22 unit Documented By: MYLENE Insulin Human Lispro (Insulin Lispro 100 Unit/Ml 3 Ml Vial) 0 unit SUBCUT QIDACHS COUNTS INCLUDE 234 BEDS AT THE [facility]; Protocol Last Admin: 12/01/23 07:51 Dose: Not Given Documented By: MARY ANNE Non-Admin Reason: No Insulin Coverage Losartan Potassium (Losartan Potassium 25 Mg Tablet) 25 mg PO DAILY COUNTS INCLUDE 234 BEDS AT THE [facility]; Protocol Last Admin: 12/01/23 10:25 Dose: 25 mg Documented By: MARY ANNE Magnesium Hydroxide (Milk Of Magnesia 30 Ml Oral.Susp) 30 ml PO DAILY PRN PRN Reason: Constipation Omeprazole (Omeprazole 20 Mg Capsule.) 20 mg PO DAILY@0630 COUNTS INCLUDE 234 BEDS AT THE [facility] Last Admin: 12/01/23 05:59 Dose: 20 mg Documented By: MYLENE Pharmacy Consult (Consult Rx Vancomycin Dosing) 1 each MISCELLANE DAILY PRN PRN Reason: Consult order Pregabalin (Pregabalin 75 Mg Capsule) 75 mg PO DAILY COUNTS INCLUDE 234 BEDS AT THE [facility] Last Admin: 12/01/23 10:23 Dose: 75 mg Documented By: MARY ANNE Senna/Docusate Sodium (Sennosides/Docusate Sodium Tablet) 1 tab PO DAILY PRN PRN Reason: Constipation Labs 11/29/23 04:55 11/29/23 04:55 Labs: Laboratory Results - last 24 hr 11/30/23 11/30/23 11/30/23 11:02 16:03 20:13 POC Glucose 210 H 145 H 210 H 12/01/23 07:37 POC Glucose 146 H Microbiology Microbiology Results: Microbiology 11/28/23 14:00 Gram Stain - Final Pleural Fluid Routine Culture - Final No growth after 2 days Anaerobic Culture - Preliminary No growth to date. 11/28/23 10:34 Blood Culture - Preliminary Blood - Venous No growth after 48 hours. 11/28/23 10:34 Blood Culture - Preliminary Blood - Venous No growth after 48 hours. Assessment and Plan (1) Hypertensive urgency: Status: Acute (2) Recurrent pleural effusion on right: Status: Acute (3) Exudative pleural effusion: Status: Acute Plan 68-year-old male with history of ESRD on HD MWF on kidney transplant list (Dr. Shea), insulin-dependent type 2 diabetes, hypertension, hyperlipidemia, ROBERT on CPAP, heart failure with reduced ejection fraction EF 35% and grade 2 diastolic dysfunction to be observed for recurrent pleural effusion. #Recurrent pleural effusion due to decompensated HFrEF with acute hypoxemic respiratory failure, ?superimposed infectious etiology -had pleur-x catheter placed 07/12, removed [address] chest shows moderate R effusion that is slightly smaller, with air now observed in the pleural space, likely 2/2 tube removal -Pleural fluid analysis 09/2023 showed elevated WBC wtih 96% PMNs. treated with abx -Per thoracic surgery, chest tube placed by IR, fluid analysis pending -cover empirically with cefepime, vanco (initiated 11/27). Check MRSA nasal swab -continue supplemental O2 to maintain oximetry 90-92% -thoracic surgery doesn't think he's high risk for vats and pleurodesis won't work and will remove tube # uncontrolled hypertension in setting of ESRD -resume home meds, increase hydralazine to 100 tid -PRN hydralazine #ESRD on HD MWF -Follows with Dr. swanson, nephro consult # elevated troponin -has chronically elevated troponin levels. -no anginal chest pain -likely demand due to uncontrolled hypertension as well as end-stage renal disease # heart failure reduced ejection fraction -does not appear to be acutely exacerbated -continue po diuretics # insulin-dependent type 2 diabetes -dose adjusted basal insulin, lantus at bedtime -Admelog on sliding scale, -POC glucose, diabetic diet #ROBERT -cpap/nocturnal o2 #Moderate persistent asthma -no exacerbation, continue home inhalers, albuterol prn #espistaxis--mild probably from dry oxygen DVT prophylaxis-heparin Full code need for inpt: management of recurrent pleural effusion with acute hypoxemic respiratory failure requiring chest tube placement, expert consultation, and will need inpt HD on admission Quality Stroke Does the patient have a stroke diagnosis?: No VTE Prior VTE?: No VTE Risk Level:: Medical - moderate - high VTE Device Contraindication: Treatment Not Indicated VTE Drug Contraindication: N/A - Med Ordered
[2023-12-01 10:57] LABS: Total Protein Pleural Fluid 4.6
[2023-12-01 10:58] LABS: Glucose Pleural Fluid 59; LDH Pleural Fluid 4652
[2023-12-01 11:02] LABS: Glucose, Whole Blood 85 mg/dL (60-115)
[2023-12-01 15:19] VITALS: BP 154/76; PULSE 63; RESP 18; TEMP 36.4; O2SAT 97
[2023-12-01 16:13] LABS: Glucose, Whole Blood 185 mg/dL (60-115)
[2023-12-01] MEDS: allopurinoL 100 MG TABLET PO (16:20)
[2023-12-01] MEDS: cefEPime HCl 1 GM in 0.9 % Sodium Chloride 50 ML IV (16:21)
[2023-12-01 16:38] LABS: Vancomycin Random 13.4 mcg/mL (15-20)
[2023-12-01] MEDS: Insulin Lispro 100 UNIT/ML 3 ML VIAL SUBCUT (17:05)
[2023-12-01] MEDS: vancomycin HCL 500 MG in 0.9 % Sodium Chloride 100 ML 110 MG IV (17:40)
[2023-12-01 19:25] VITALS: BP 149/73; PULSE 64; RESP 20; TEMP 36.3; O2SAT 97
[2023-12-01 20:09] LABS: Glucose, Whole Blood 137 mg/dL (60-115)
[2023-12-01] MEDS: Doxazosin Mesylate 2 MG TABLET 4 MG PO (21:18)
[2023-12-01] MEDS: Insulin Glargine,Hum.rec.anlog 100 UNIT/ML 10 ML VIAL 22 UNIT SUBCUT (21:18)
[2023-12-02] VITALS (8 sets, daily range): BP systolic 122–147; BP diastolic 58–66; PULSE 65–74; RESP 17–18; TEMP 36.2–36.7; O2SAT 92–100
[2023-12-02] MEDS: HYDROmorphone HCl 0.5 MG/0.5 ML SYRINGE IVPUSH ×3 (02:09→22:29)
[2023-12-02] MEDS: Heparin Sodium,Porcine 5,000 UNIT/ML VIAL 5000 UNIT SUBCUT ×2 (05:34→17:15)
[2023-12-02] MEDS: Omeprazole 20 MG CAPSULE.DR PO (05:35)
[2023-12-02 07:46] LABS: Glucose, Whole Blood 143 mg/dL (60-115)
[2023-12-02] MEDS: Losartan Potassium 25 MG TABLET PO (08:50)
[2023-12-02] MEDS: Aspirin Enteric Coated 81 MG TABLET.DR PO (08:51)
[2023-12-02] MEDS: Pregabalin 75 MG CAPSULE PO (08:51)
[2023-12-02] MEDS: carvediloL 6.25 MG TABLET PO ×2 (08:51→21:10)
[2023-12-02] MEDS: Atorvastatin Calcium 40 MG TABLET PO (08:51)
[2023-12-02] MEDS: hydrALAZINE HCl 50 MG TABLET 100 MG PO (08:51)
[2023-12-02] MEDS: Furosemide 40 MG TABLET 80 MG PO (08:51)
--- NOTE | 2023-12-02 09:40 | PM.PNGS ---
Subjective Subjective Date of Service: 12/02/23 Interval history: Patient reports feeling weak with difficulty walking and talking. Was having chest pain from the chest tube but this is improved after receiving pain medication. Physical Exam Vital Signs: Vital Signs: Last Vital Signs Temp 97.8 F 12/02/23 07:56 Pulse 73 12/02/23 08:51 Resp 18 12/02/23 07:56 BP 147/66 H 12/02/23 08:51 Pulse Ox 100 12/02/23 07:56 O2 Del Method Nasal Cannula 12/02/23 07:56 O2 Flow Rate 2.0 12/02/23 07:56 BMI result Body Mass Index 28.6 Const: General: no acute distress Nutritional Appearance: well nourished Resp: Other: Chest tube in place, no air leak, serous fluid noted Effort & Inspection: no cough, decreased respiratory effort and uses accessory muscles Skin: Other: Warm and dry, Objective Data Active Medications Acetaminophen (Acetaminophen 325 Mg Tablet) 650 mg PO Q6H PRN PRN Reason: Pain, Mild (Pain Scale 1-3), fever or headache Albuterol Sulfate (Albuterol Sulfate 90 Mcg 8 Gm Inhaler) 2 puff INHALE Q4H PRN PRN Reason: Shortness Of Breath Albuterol/Ipratropium (Albuterol/Iprat 2.5/0.5mg 3 Ml Ampul.Neb) 3 ml INHALE Q4H PRN PRN Reason: Wheezing Allopurinol (Allopurinol 100 Mg Tablet) 100 mg PO MOWEFR@1600 [facility] Last Admin: 12/01/23 16:20 Dose: 100 mg Documented By: MARY ANNE Aspirin (Aspirin Enteric Coated 81 Mg Tablet.) 81 mg PO DAILY [facility] Last Admin: 12/02/23 08:51 Dose: 81 mg Documented By: MARIE Atorvastatin Calcium (Atorvastatin Calcium 40 Mg Tablet) 40 mg PO DAILY [facility] Last Admin: 12/02/23 08:51 Dose: 40 mg Documented By: MARIE Calcium Carbonate (Calcium Carbonate 750 Mg Tab.Chew) 750 mg PO Q4H PRN PRN Reason: Heartburn Carvedilol (Carvedilol 6.25 Mg Tablet) 6.25 mg PO BID [facility]; Protocol Last Admin: 12/02/23 08:51 Dose: 6.25 mg Documented By: MARIE Doxazosin Mesylate (Doxazosin Mesylate 2 Mg Tablet) 4 mg PO BEDTIME [facility]; Protocol Last Admin: 12/01/23 21:18 Dose: 4 mg Documented By: MYLENE Fluticasone/Umeclidinium/Vilanterol (Fluticasone/Umeclidinium/Vilanterol 200/62.5/25 Blst.W.Dev) 1 puff INHALE RDAILY [facility] Last Admin: 12/01/23 10:23 Dose: 1 puff Documented By: MARY ANNE Furosemide (Furosemide 40 Mg Tablet) 80 mg PO DAILY [facility]; Protocol Last Admin: 12/02/23 08:51 Dose: 80 mg Documented By: MARIE Heparin Sodium (Porcine) (Heparin Sodium,Porcine 5,000 Unit/Ml Vial) 5,000 unit SUBCUT Q12H [facility] Last Admin: 12/02/23 05:34 Dose: 5,000 unit Documented By: MYLENE Hydralazine HCl (Hydralazine Hcl 50 Mg Tablet) 100 mg PO TID [facility]; Protocol Last Admin: 12/02/23 08:51 Dose: 100 mg Documented By: MARIE Hydromorphone HCl (Hydromorphone Hcl 0.5 Mg/0.5 Ml Syringe) 0.5 mg IVPUSH Q4H PRN; Protocol PRN Reason: Pain, Severe (Pain Scale 7-10) Last Admin: 12/02/23 08:50 Dose: 0.5 mg Documented By: MARIE Vancomycin HCl 500 mg/ Sodium (Chloride) 110 mls @ 110 mls/hr IV MoWeFr@1800 [facility] Cefepime HCl 1 gm/ Sodium (Chloride) 50 mls @ 100 mls/hr IV Q24H [facility] Last Infusion: 12/01/23 16:52 Dose: Infused Documented By: MARY ANNE Insulin Glargine (Insulin Glargine,Hum.Rec.Anlog 100 Unit/Ml 10 Ml Vial) 22 unit SUBCUT BEDTIME [facility] Last Admin: 12/01/23 21:18 Dose: 22 unit Documented By: MYLENE Insulin Human Lispro (Insulin Lispro 100 Unit/Ml 3 Ml Vial) 0 unit SUBCUT QIDACHS [facility]; Protocol Last Admin: 12/02/23 07:46 Dose: Not Given Documented By: MARIE Non-Admin Reason: No Insulin Coverage Losartan Potassium (Losartan Potassium 25 Mg Tablet) 25 mg PO DAILY [facility]; Protocol Last Admin: 12/02/23 08:50 Dose: 25 mg Documented By: MARIE Magnesium Hydroxide (Milk Of Magnesia 30 Ml Oral.Susp) 30 ml PO DAILY PRN PRN Reason: Constipation Omeprazole (Omeprazole 20 Mg Capsule.) 20 mg PO DAILY@0630 [facility] Last Admin: 12/02/23 05:35 Dose: 20 mg Documented By: MYLENE Pharmacy Consult (Consult Rx Vancomycin Dosing) 1 each MISCELLANE DAILY PRN PRN Reason: Consult order Pregabalin (Pregabalin 75 Mg Capsule) 75 mg PO DAILY [facility] Last Admin: 12/02/23 08:51 Dose: 75 mg Documented By: MARIE Senna/Docusate Sodium (Sennosides/Docusate Sodium Tablet) 1 tab PO DAILY PRN PRN Reason: Constipation Labs 11/29/23 04:55 11/29/23 04:55 Labs: Laboratory Results - last 24 hr 11/28/23 12/01/23 12/01/23 14:00 10:55 16:10 POC Glucose 85 185 H Pleural Total Protein 4.6 Pleural LDH 4652 Pleural Glucose 59 Random Vancomycin 12/01/23 12/01/23 12/02/23 16:15 19:59 07:21 POC Glucose 137 H 143 H Pleural Total Protein Pleural LDH Pleural Glucose Random Vancomycin 13.4 L Microbiology Microbiology Results: Microbiology 11/28/23 14:00 Gram Stain - Final Pleural Fluid Routine Culture - Final No growth after 2 days Anaerobic Culture - Preliminary No growth to date. Procedures Date of Service Date of Service: 12/02/23 Progress Note: A&P Assessment and plan (1) Trapped lung: Status: Acute Plan 68-year-old male patient with trapped lung, status post chest tube placement. Patient reporting weakness with difficulty walking and talking. Chest tube site intact, draining serous fluid. Patient initially wanted a chest tube out however not sure this would improve his weakness. Discussed with Dr. Rai. We will hold off on chest tube removal. Time Spent With Patient Time: Total time managing care of this patient today ____ minutes. Quality Stroke Does the patient have a stroke diagnosis?: No VTE Prior VTE?: No VTE Risk Level:: Medical - moderate - high VTE Device Contraindication: Treatment Not Indicated VTE Drug Contraindication: N/A - Med Ordered
--- NOTE | 2023-12-02 10:47 | P.PNIM_ITS ---
Subjective Subjective Date of Service: 12/03/23 Interval History: Overall doing bwtter, CT drain mild, no sob. Patient says he's having difficult speaking and family says he's weaker than usual saw pt with translator/interpreter, and that they reporting that he's speech is nearly back, he has generalized weakness, Physical Exam 2 Vital Signs: Vital Signs: Last Vital Signs Temp 97.8 F 12/02/23 07:56 Pulse 73 12/02/23 08:51 Resp 18 12/02/23 07:56 BP 147/66 H 12/02/23 08:51 Pulse Ox 100 12/02/23 07:56 O2 Del Method Nasal Cannula 12/02/23 07:56 O2 Flow Rate 2.0 12/02/23 07:56 BMI result Body Mass Index 28.6 Const: Other: General: AO X 3, no acute distress Resp: CTA bilateral, chest tube in place CVS: S1,S2,RRR GI: +BS, NT, no distention Skin: No rash Neuro: motor grossly intact Psych: appropriate affect Objective Data Active Medications Acetaminophen (Acetaminophen 325 Mg Tablet) 650 mg PO Q6H PRN PRN Reason: Pain, Mild (Pain Scale 1-3), fever or headache Albuterol Sulfate (Albuterol Sulfate 90 Mcg 8 Gm Inhaler) 2 puff INHALE Q4H PRN PRN Reason: Shortness Of Breath Albuterol/Ipratropium (Albuterol/Iprat 2.5/0.5mg 3 Ml Ampul.Neb) 3 ml INHALE Q4H PRN PRN Reason: Wheezing Allopurinol (Allopurinol 100 Mg Tablet) 100 mg PO MOWEFR@1600 [facility] Last Admin: 12/01/23 16:20 Dose: 100 mg Documented By: MARY ANNE Aspirin (Aspirin Enteric Coated 81 Mg Tablet.) 81 mg PO DAILY [facility] Last Admin: 12/02/23 08:51 Dose: 81 mg Documented By: MARIE Atorvastatin Calcium (Atorvastatin Calcium 40 Mg Tablet) 40 mg PO DAILY [facility] Last Admin: 12/02/23 08:51 Dose: 40 mg Documented By: MARIE Calcium Carbonate (Calcium Carbonate 750 Mg Tab.Chew) 750 mg PO Q4H PRN PRN Reason: Heartburn Carvedilol (Carvedilol 6.25 Mg Tablet) 6.25 mg PO BID [facility]; Protocol Last Admin: 12/02/23 08:51 Dose: 6.25 mg Documented By: MARIE Doxazosin Mesylate (Doxazosin Mesylate 2 Mg Tablet) 4 mg PO BEDTIME [facility]; Protocol Last Admin: 12/01/23 21:18 Dose: 4 mg Documented By: MYLENE Fluticasone/Umeclidinium/Vilanterol (Fluticasone/Umeclidinium/Vilanterol 200/62.5/25 Blst.W.Dev) 1 puff INHALE RDAILY [facility] Last Admin: 12/01/23 10:23 Dose: 1 puff Documented By: MARY ANNE Furosemide (Furosemide 40 Mg Tablet) 80 mg PO DAILY [facility]; Protocol Last Admin: 12/02/23 08:51 Dose: 80 mg Documented By: MARIE Heparin Sodium (Porcine) (Heparin Sodium,Porcine 5,000 Unit/Ml Vial) 5,000 unit SUBCUT Q12H [facility] Last Admin: 12/02/23 05:34 Dose: 5,000 unit Documented By: MYLENE Hydralazine HCl (Hydralazine Hcl 50 Mg Tablet) 100 mg PO TID [facility]; Protocol Last Admin: 12/02/23 08:51 Dose: 100 mg Documented By: MARIE Hydromorphone HCl (Hydromorphone Hcl 0.5 Mg/0.5 Ml Syringe) 0.5 mg IVPUSH Q4H PRN; Protocol PRN Reason: Pain, Severe (Pain Scale 7-10) Last Admin: 12/02/23 08:50 Dose: 0.5 mg Documented By: MARIE Vancomycin HCl 500 mg/ Sodium (Chloride) 110 mls @ 110 mls/hr IV MoWeFr@1800 [facility] Cefepime HCl 1 gm/ Sodium (Chloride) 50 mls @ 100 mls/hr IV Q24H [facility] Last Infusion: 12/01/23 16:52 Dose: Infused Documented By: MARY ANNE Insulin Glargine (Insulin Glargine,Hum.Rec.Anlog 100 Unit/Ml 10 Ml Vial) 22 unit SUBCUT BEDTIME [facility] Last Admin: 12/01/23 21:18 Dose: 22 unit Documented By: MYLENE Insulin Human Lispro (Insulin Lispro 100 Unit/Ml 3 Ml Vial) 0 unit SUBCUT QIDACHS [facility]; Protocol Last Admin: 12/02/23 07:46 Dose: Not Given Documented By: MARIE Non-Admin Reason: No Insulin Coverage Losartan Potassium (Losartan Potassium 25 Mg Tablet) 25 mg PO DAILY [facility]; Protocol Last Admin: 12/02/23 08:50 Dose: 25 mg Documented By: MARIE Magnesium Hydroxide (Milk Of Magnesia 30 Ml Oral.Susp) 30 ml PO DAILY PRN PRN Reason: Constipation Omeprazole (Omeprazole 20 Mg Capsule.) 20 mg PO DAILY@0630 [facility] Last Admin: 12/02/23 05:35 Dose: 20 mg Documented By: MYLENE Pharmacy Consult (Consult Rx Vancomycin Dosing) 1 each MISCELLANE DAILY PRN PRN Reason: Consult order Pregabalin (Pregabalin 75 Mg Capsule) 75 mg PO DAILY [facility] Last Admin: 12/02/23 08:51 Dose: 75 mg Documented By: MARIE Senna/Docusate Sodium (Sennosides/Docusate Sodium Tablet) 1 tab PO DAILY PRN PRN Reason: Constipation Labs 12/02/23 13:13 12/02/23 13:13 Labs: Laboratory Results - last 24 hr 11/28/23 12/01/23 12/01/23 14:00 10:55 16:10 POC Glucose 85 185 H Pleural Total Protein 4.6 Pleural LDH 4652 Pleural Glucose 59 Random Vancomycin 12/01/23 12/01/23 12/02/23 16:15 19:59 07:21 POC Glucose 137 H 143 H Pleural Total Protein Pleural LDH Pleural Glucose Random Vancomycin 13.4 L Microbiology Microbiology Results: Microbiology 11/28/23 14:00 Gram Stain - Final Pleural Fluid Routine Culture - Final No growth after 2 days Anaerobic Culture - Preliminary No growth to date. Assessment and Plan (1) Hypertensive urgency: Status: Acute (2) Recurrent pleural effusion on right: Status: Acute (3) Exudative pleural effusion: Status: Acute Plan 68-year-old male with history of ESRD on HD MWF on kidney transplant list (Dr. Shea), insulin-dependent type 2 diabetes, hypertension, hyperlipidemia, ROBERT on CPAP, heart failure with reduced ejection fraction EF 35% and grade 2 diastolic dysfunction to be observed for recurrent pleural effusion. #Recurrent pleural effusion due to decompensated HFrEF with acute hypoxemic respiratory failure, ?superimposed infectious etiology -had pleur-x catheter placed 07/12, removed [address] chest shows moderate R effusion that is slightly smaller, with air now observed in the pleural space, likely 2/2 tube removal -Pleural fluid analysis 09/2023 showed elevated WBC wtih 96% PMNs. treated with abx -Per thoracic surgery, chest tube placed by IR, fluid analysis pending -cover empirically with cefepime, vanco (initiated 11/27). Check MRSA nasal swab -continue supplemental O2 to maintain oximetry 90-92% -thoracic surgery doesn't think he's high risk for vats and pleurodesis won't work and will remove tube Generalized weakness, doutb stroke.. his speech is back to his baseline, he is clumsy on his feet yet has no trouble raising both legs against gravity and strenght symetric -check routine labs, cbc, bmp, ammonia. -Pt eval and routine CT of head no acute finding, could also be related to BP which is lower than usual highs, reduce bp meds # uncontrolled hypertension in setting of ESRD -resume home meds, increase hydralazine to 100 tid -PRN hydralazine #ESRD on HD MWF -Follows with Dr. swanson, nephro consult # elevated troponin -has chronically elevated troponin levels. -no anginal chest pain -likely demand due to uncontrolled hypertension as well as end-stage renal disease # heart failure reduced ejection fraction -does not appear to be acutely exacerbated -continue po diuretics # insulin-dependent type 2 diabetes -dose adjusted basal insulin, lantus at bedtime -Admelog on sliding scale, -POC glucose, diabetic diet #ROBERT -cpap/nocturnal o2 #Moderate persistent asthma -no exacerbation, continue home inhalers, albuterol prn #espistaxis--mild probably from dry oxygen DVT prophylaxis-heparin Full code need for inpt: management of recurrent pleural effusion with acute hypoxemic respiratory failure requiring chest tube placement, expert consultation, and will need inpt HD on admission Quality Stroke Does the patient have a stroke diagnosis?: No VTE Prior VTE?: No VTE Risk Level:: Medical - moderate - high VTE Device Contraindication: Treatment Not Indicated VTE Drug Contraindication: N/A - Med Ordered
[2023-12-02 11:21] LABS: Glucose, Whole Blood 223 mg/dL (60-115)
[2023-12-02] MEDS: Insulin Lispro 100 UNIT/ML 3 ML VIAL SUBCUT ×2 (11:48→16:41)
[2023-12-02 13:27] LABS: Ammonia 32 umol/L (13-55)
[2023-12-02 13:30] LABS: Hematocrit 36.3 % (42.0-52.0); Hemoglobin 10.9 g/dl (14.0-18.0); Mean Corpuscular Hemoglobin 23.1 pg (27.0-33.0); Mean Corpuscular Volume 76.9 fL (80.0-98.0); NRBC Pct Auto 0.3 /100WBC (0.0-0.2); Platelet Count 182 X10*3/uL (160-400); Red Blood Count 4.72 X10*6/uL (4.60-5.80); Red Cell Distribution Width 17.8 % (11.0-16.0); White Blood Count 7.4 X10*3/uL (4.8-10.8)
[2023-12-02 13:35] LABS: Anion Gap 19 (12-20); Blood Urea Nitrogen 54 mg/dL (9-16); Calcium 9.2 mg/dL (8.4-10.2); Carbon Dioxide 21 mmol/L (22-29); Chloride 100 mmol/L (96-108); Glucose Random 236 mg/dL (60-115); Potassium 4.7 mmol/L (3.3-5.1); Sodium 135 mmol/L (135-145)
[2023-12-02 13:39] LABS: Creatinine Clr Calc Pharmacy 8.3; Estimated Glomerular Filt Rate 7
[2023-12-02] MEDS: hydrALAZINE HCl 50 MG TABLET PO ×2 (15:39→21:10)
[2023-12-02 16:07] LABS: Glucose, Whole Blood 204 mg/dL (60-115)
[2023-12-02] MEDS: cefEPime HCl 1 GM in 0.9 % Sodium Chloride 50 ML IV (16:44)
[2023-12-02 20:22] LABS: Glucose, Whole Blood 87 mg/dL (60-115)
[2023-12-02] MEDS: Doxazosin Mesylate 2 MG TABLET 4 MG PO (21:10)
[2023-12-03 03:53] VITALS: BP 145/54; PULSE 73; RESP 18; TEMP 36.4; O2SAT 96
[2023-12-03] MEDS: HYDROmorphone HCl 0.5 MG/0.5 ML SYRINGE IVPUSH (04:16)
[2023-12-03] MEDS: Omeprazole 20 MG CAPSULE.DR PO (05:55)
[2023-12-03] MEDS: Heparin Sodium,Porcine 5,000 UNIT/ML VIAL 5000 UNIT SUBCUT ×2 (05:59→18:01)
[2023-12-03 07:38] VITALS: BP 146/65; PULSE 77; RESP 18; TEMP 36.7; O2SAT 95
[2023-12-03 07:54] LABS: Glucose, Whole Blood 128 mg/dL (60-115)
[2023-12-03] MEDS: Fluticasone/Umeclidinium/Vilanterol 200/62.5/25 BLST.W.DEV 1 PUFF INHALE (08:19)
[2023-12-03 08:20] VITALS: PULSE 77; RESP 18; O2SAT 93
[2023-12-03] MEDS: hydrALAZINE HCl 50 MG TABLET PO ×2 (08:24→20:21)
[2023-12-03] MEDS: Furosemide 40 MG TABLET 80 MG PO (08:24)
[2023-12-03] MEDS: Atorvastatin Calcium 40 MG TABLET PO (08:24)
[2023-12-03] MEDS: Pregabalin 75 MG CAPSULE PO (08:24)
[2023-12-03] MEDS: carvediloL 6.25 MG TABLET PO ×2 (08:24→20:21)
[2023-12-03] MEDS: Losartan Potassium 25 MG TABLET PO (08:25)
[2023-12-03] MEDS: Aspirin Enteric Coated 81 MG TABLET.DR PO (08:25)
--- NOTE | 2023-12-03 09:25 | P.PNGS_ITS ---
Subjective Subjective Date of Service: 12/03/23 Interval history: Patient continues to report some difficulty talking and weakness. Chest discomfort is controlled with current pain medications. Physical Exam 2 Vital Signs: Vital Signs: Last Vital Signs Temp 98.0 F 12/03/23 07:38 Pulse 77 12/03/23 08:20 Resp 18 12/03/23 08:20 BP 146/65 H 12/03/23 07:38 Pulse Ox 95 12/03/23 07:38 O2 Del Method Nasal Cannula 12/03/23 07:38 O2 Flow Rate 2.0 12/03/23 07:38 BMI result Body Mass Index 28.6 Const: General: no acute distress Nutritional Appearance: well nourished Orientation/consciousness: patient oriented x3 Chest: Other: Chest tube intact, minimal serosanguineous output noted. No air leak appreciated. Skin: Other: Warm and dry. Neuro: General: patient oriented x3 Objective Data Active Medications Acetaminophen (Acetaminophen 325 Mg Tablet) 650 mg PO Q6H PRN PRN Reason: Pain, Mild (Pain Scale 1-3), fever or headache Albuterol Sulfate (Albuterol Sulfate 90 Mcg 8 Gm Inhaler) 2 puff INHALE Q4H PRN PRN Reason: Shortness Of Breath Albuterol/Ipratropium (Albuterol/Iprat 2.5/0.5mg 3 Ml Ampul.Neb) 3 ml INHALE Q4H PRN PRN Reason: Wheezing Allopurinol (Allopurinol 100 Mg Tablet) 100 mg PO MOWEFR@1600 [facility] Last Admin: 12/01/23 16:20 Dose: 100 mg Documented By: MARY ANNE Aspirin (Aspirin Enteric Coated 81 Mg Tablet.) 81 mg PO DAILY [facility] Last Admin: 12/03/23 08:25 Dose: 81 mg Documented By: HADLEY Atorvastatin Calcium (Atorvastatin Calcium 40 Mg Tablet) 40 mg PO DAILY [facility] Last Admin: 12/03/23 08:24 Dose: 40 mg Documented By: HADLEY Calcium Carbonate (Calcium Carbonate 750 Mg Tab.Chew) 750 mg PO Q4H PRN PRN Reason: Heartburn Carvedilol (Carvedilol 6.25 Mg Tablet) 6.25 mg PO BID [facility]; Protocol Last Admin: 12/03/23 08:24 Dose: 6.25 mg Documented By: HADLEY Doxazosin Mesylate (Doxazosin Mesylate 2 Mg Tablet) 4 mg PO BEDTIME [facility]; Protocol Last Admin: 12/02/23 21:10 Dose: 4 mg Documented By: JOSEFINA Fluticasone/Umeclidinium/Vilanterol (Fluticasone/Umeclidinium/Vilanterol 200/62.5/25 Blst.W.Dev) 1 puff INHALE RDAILY [facility] Last Admin: 12/03/23 08:19 Dose: 1 puff Documented By: BEAR Furosemide (Furosemide 40 Mg Tablet) 80 mg PO DAILY [facility]; Protocol Last Admin: 12/03/23 08:24 Dose: 80 mg Documented By: HADLEY Heparin Sodium (Porcine) (Heparin Sodium,Porcine 5,000 Unit/Ml Vial) 5,000 unit SUBCUT Q12H [facility] Last Admin: 12/03/23 05:59 Dose: 5,000 unit Documented By: JOSEFINA Hydralazine HCl (Hydralazine Hcl 50 Mg Tablet) 50 mg PO TID [facility]; Protocol Last Admin: 12/03/23 08:24 Dose: 50 mg Documented By: HADLEY Hydromorphone HCl (Hydromorphone Hcl 0.5 Mg/0.5 Ml Syringe) 0.5 mg IVPUSH Q4H PRN; Protocol PRN Reason: Pain, Severe (Pain Scale 7-10) Last Admin: 12/03/23 04:16 Dose: 0.5 mg Documented By: JOSEFINA Vancomycin HCl 500 mg/ Sodium (Chloride) 110 mls @ 110 mls/hr IV MoWeFr@1800 [facility] Cefepime HCl 1 gm/ Sodium (Chloride) 50 mls @ 100 mls/hr IV Q24H [facility] Last Infusion: 12/02/23 17:18 Dose: Infused Documented By: MARIE Insulin Glargine (Insulin Glargine,Hum.Rec.Anlog 100 Unit/Ml 10 Ml Vial) 25 unit SUBCUT BEDTIME [facility] Last Admin: 12/02/23 21:12 Dose: Not Given Documented By: JOSEFINA Non-Admin Reason: Physician Held Med Insulin Human Lispro (Insulin Lispro 100 Unit/Ml 3 Ml Vial) 0 unit SUBCUT QIDACHS [facility]; Protocol Last Admin: 12/03/23 08:20 Dose: Not Given Documented By: HADLEY Non-Admin Reason: No Insulin Coverage Losartan Potassium (Losartan Potassium 25 Mg Tablet) 25 mg PO DAILY [facility]; Protocol Last Admin: 12/03/23 08:25 Dose: 25 mg Documented By: HADLEY Magnesium Hydroxide (Milk Of Magnesia 30 Ml Oral.Susp) 30 ml PO DAILY PRN PRN Reason: Constipation Omeprazole (Omeprazole 20 Mg Capsule.) 20 mg PO DAILY@0630 [facility] Last Admin: 12/03/23 05:55 Dose: 20 mg Documented By: JOSEFINA Pharmacy Consult (Consult Rx Vancomycin Dosing) 1 each MISCELLANE DAILY PRN PRN Reason: Consult order Pregabalin (Pregabalin 75 Mg Capsule) 75 mg PO DAILY [facility] Last Admin: 12/03/23 08:24 Dose: 75 mg Documented By: HADLEY Senna/Docusate Sodium (Sennosides/Docusate Sodium Tablet) 1 tab PO DAILY PRN PRN Reason: Constipation Labs 12/02/23 13:13 12/02/23 13:13 Labs: Laboratory Results - last 24 hr 12/02/23 12/02/23 12/02/23 11:15 13:13 15:53 MCV 76.9 L MCH 23.1 L MCHC 30.0 L RDW 17.8 H Plt Count 182 MPV Not Reportable Absolute Nucleated RBC 0.020 H Nucleated RBC % (auto) 0.3 H Anion Gap 19 Estim Creat Clear Calc 8.3 Estimated GFR 7 POC Glucose 223 H 204 H Random Glucose 236 H Calcium 9.2 Ammonia 32 12/02/23 12/03/23 20:09 07:44 MCV MCH MCHC RDW Plt Count MPV Absolute Nucleated RBC Nucleated RBC % (auto) Anion Gap Estim Creat Clear Calc Estimated GFR POC Glucose 87 128 H Random Glucose Calcium Ammonia Microbiology Microbiology Results: Microbiology 11/28/23 14:00 Gram Stain - Final Pleural Fluid Routine Culture - Final No growth after 2 days Anaerobic Culture - Final NO GROWTH AFTER 5 DAYS Procedures Date of Service Date of Service: 12/03/23 Progress Note: A&P Assessment and plan (1) Trapped lung: Status: Acute Plan 68-year-old male patient with trapped lung, status post chest tube placement. Patient is status post chest tube placement by IR with minimal output at this time. Possible removal of chest tube tomorrow if continued low output. Time Spent With Patient Time: Total time managing care of this patient today ____ minutes. Quality Stroke Does the patient have a stroke diagnosis?: No VTE Prior VTE?: No VTE Risk Level:: Medical - moderate - high VTE Device Contraindication: Treatment Not Indicated VTE Drug Contraindication: N/A - Med Ordered
--- NOTE | 2023-12-03 10:46 | HO.PM.IMPN ---
Subjective Subjective Date of Service: 12/03/23 Interval History: No new new changes, no new changes in CT still c/o of feeling week, and that his speech is heavy but having normal converstion with family and conversation with me via deaf interpreter Physical Exam Vital Signs: Vital Signs: Last Vital Signs Temp 98.0 F 12/03/23 07:38 Pulse 77 12/03/23 08:20 Resp 18 12/03/23 08:20 BP 146/65 H 12/03/23 07:38 Pulse Ox 95 12/03/23 07:38 O2 Del Method Nasal Cannula 12/03/23 07:38 O2 Flow Rate 2.0 12/03/23 07:38 BMI result Body Mass Index 28.6 Const: Other: General: AO X 3, no acute distress Resp: CTA bilateral, chest tube in place CVS: S1,S2,RRR GI: +BS, NT, no distention Skin: No rash Neuro: motor grossly intact. strenght in legs 5/5, CN2 to 12 intact Psych: appropriate affect Objective Data Active Medications Acetaminophen (Acetaminophen 325 Mg Tablet) 650 mg PO Q6H PRN PRN Reason: Pain, Mild (Pain Scale 1-3), fever or headache Albuterol Sulfate (Albuterol Sulfate 90 Mcg 8 Gm Inhaler) 2 puff INHALE Q4H PRN PRN Reason: Shortness Of Breath Albuterol/Ipratropium (Albuterol/Iprat 2.5/0.5mg 3 Ml Ampul.Neb) 3 ml INHALE Q4H PRN PRN Reason: Wheezing Allopurinol (Allopurinol 100 Mg Tablet) 100 mg PO MOWEFR@1600 [facility] Last Admin: 12/01/23 16:20 Dose: 100 mg Documented By: MARY ANNE Aspirin (Aspirin Enteric Coated 81 Mg Tablet.) 81 mg PO DAILY [facility] Last Admin: 12/03/23 08:25 Dose: 81 mg Documented By: HADLEY Atorvastatin Calcium (Atorvastatin Calcium 40 Mg Tablet) 40 mg PO DAILY [facility] Last Admin: 12/03/23 08:24 Dose: 40 mg Documented By: HADLEY Calcium Carbonate (Calcium Carbonate 750 Mg Tab.Chew) 750 mg PO Q4H PRN PRN Reason: Heartburn Carvedilol (Carvedilol 6.25 Mg Tablet) 6.25 mg PO BID [facility]; Protocol Last Admin: 12/03/23 08:24 Dose: 6.25 mg Documented By: HADLEY Doxazosin Mesylate (Doxazosin Mesylate 2 Mg Tablet) 4 mg PO BEDTIME [facility]; Protocol Last Admin: 12/02/23 21:10 Dose: 4 mg Documented By: JOSEFINA Fluticasone/Umeclidinium/Vilanterol (Fluticasone/Umeclidinium/Vilanterol 200/62.5/25 Blst.W.Dev) 1 puff INHALE RDAILY [facility] Last Admin: 12/03/23 08:19 Dose: 1 puff Documented By: BEAR Furosemide (Furosemide 40 Mg Tablet) 80 mg PO DAILY [facility]; Protocol Last Admin: 12/03/23 08:24 Dose: 80 mg Documented By: HADLEY Heparin Sodium (Porcine) (Heparin Sodium,Porcine 5,000 Unit/Ml Vial) 5,000 unit SUBCUT Q12H [facility] Last Admin: 12/03/23 05:59 Dose: 5,000 unit Documented By: JOSEFINA Hydralazine HCl (Hydralazine Hcl 50 Mg Tablet) 50 mg PO TID [facility]; Protocol Last Admin: 12/03/23 08:24 Dose: 50 mg Documented By: HADLEY Hydromorphone HCl (Hydromorphone Hcl 0.5 Mg/0.5 Ml Syringe) 0.5 mg IVPUSH Q4H PRN; Protocol PRN Reason: Pain, Severe (Pain Scale 7-10) Last Admin: 12/03/23 04:16 Dose: 0.5 mg Documented By: JOSEFINA Vancomycin HCl 500 mg/ Sodium (Chloride) 110 mls @ 110 mls/hr IV MoWeFr@1800 [facility] Cefepime HCl 1 gm/ Sodium (Chloride) 50 mls @ 100 mls/hr IV Q24H [facility] Last Infusion: 12/02/23 17:18 Dose: Infused Documented By: MARIE Insulin Glargine (Insulin Glargine,Hum.Rec.Anlog 100 Unit/Ml 10 Ml Vial) 25 unit SUBCUT BEDTIME [facility] Last Admin: 12/02/23 21:12 Dose: Not Given Documented By: JOSEFINA Non-Admin Reason: Physician Held Med Insulin Human Lispro (Insulin Lispro 100 Unit/Ml 3 Ml Vial) 0 unit SUBCUT QIDACHS [facility]; Protocol Last Admin: 12/03/23 08:20 Dose: Not Given Documented By: HADLEY Non-Admin Reason: No Insulin Coverage Losartan Potassium (Losartan Potassium 25 Mg Tablet) 25 mg PO DAILY [facility]; Protocol Last Admin: 12/03/23 08:25 Dose: 25 mg Documented By: HADLEY Magnesium Hydroxide (Milk Of Magnesia 30 Ml Oral.Susp) 30 ml PO DAILY PRN PRN Reason: Constipation Omeprazole (Omeprazole 20 Mg Capsule.) 20 mg PO DAILY@0630 [facility] Last Admin: 12/03/23 05:55 Dose: 20 mg Documented By: JOSEFINA Pharmacy Consult (Consult Rx Vancomycin Dosing) 1 each MISCELLANE DAILY PRN PRN Reason: Consult order Pregabalin (Pregabalin 75 Mg Capsule) 75 mg PO DAILY [facility] Last Admin: 12/03/23 08:24 Dose: 75 mg Documented By: HADLEY Senna/Docusate Sodium (Sennosides/Docusate Sodium Tablet) 1 tab PO DAILY PRN PRN Reason: Constipation Labs 12/02/23 13:13 12/02/23 13:13 Labs: Laboratory Results - last 24 hr 12/02/23 12/02/23 12/02/23 11:15 13:13 15:53 MCV 76.9 L MCH 23.1 L MCHC 30.0 L RDW 17.8 H Plt Count 182 MPV Not Reportable Absolute Nucleated RBC 0.020 H Nucleated RBC % (auto) 0.3 H Anion Gap 19 Estim Creat Clear Calc 8.3 Estimated GFR 7 POC Glucose 223 H 204 H Random Glucose 236 H Calcium 9.2 Ammonia 32 12/02/23 12/03/23 20:09 07:44 MCV MCH MCHC RDW Plt Count MPV Absolute Nucleated RBC Nucleated RBC % (auto) Anion Gap Estim Creat Clear Calc Estimated GFR POC Glucose 87 128 H Random Glucose Calcium Ammonia Microbiology Microbiology Results: Microbiology 11/28/23 14:00 Gram Stain - Final Pleural Fluid Routine Culture - Final No growth after 2 days Anaerobic Culture - Final NO GROWTH AFTER 5 DAYS Assessment and Plan (1) Hypertensive urgency: Status: Acute (2) Recurrent pleural effusion on right: Status: Acute (3) Exudative pleural effusion: Status: Acute Plan 68-year-old male with history of ESRD on HD MWF on kidney transplant list (Dr. Shea), insulin-dependent type 2 diabetes, hypertension, hyperlipidemia, ROBERT on CPAP, heart failure with reduced ejection fraction EF 35% and grade 2 diastolic dysfunction to be observed for recurrent pleural effusion. #Recurrent pleural effusion due to decompensated HFrEF with acute hypoxemic respiratory failure, ?superimposed infectious etiology -had pleur-x catheter placed 07/12, removed [address] chest shows moderate R effusion that is slightly smaller, with air now observed in the pleural space, likely 2/2 tube removal -Pleural fluid analysis 09/2023 showed elevated WBC wtih 96% PMNs. treated with abx -Per thoracic surgery, chest tube placed by IR, fluid analysis pending -cover empirically with cefepime, vanco (initiated 11/27). M -continue supplemental O2 to maintain oximetry 90-92% -thoracic surgery doesn't think he's high risk for vats and pleurodesis won't work and will remove tube Generalized weakness, doutb stroke.. his speech is back to his baseline, he is clumsy on his feet yet has no trouble raising both legs against gravity and strenght symetric -check routine labs, cbc, bmp, ammonia. -Pt eval and routine CT of head no acute finding, could also be related to BP which is lower than before -Neuro consult, check mag, phos # uncontrolled hypertension in setting of ESRD -resume home meds, increase hydralazine to 100 tid -PRN hydralazine #ESRD on HD MWF -Follows with Dr. swanson, nephro consult # elevated troponin -has chronically elevated troponin levels. -no anginal chest pain -likely demand due to uncontrolled hypertension as well as end-stage renal disease # heart failure reduced ejection fraction -does not appear to be acutely exacerbated -continue po diuretics # insulin-dependent type 2 diabetes -dose adjusted basal insulin, lantus at bedtime -Admelog on sliding scale, -POC glucose, diabetic diet #ROBERT -cpap/nocturnal o2 #Moderate persistent asthma -no exacerbation, continue home inhalers, albuterol prn #espistaxis--mild probably from dry oxygen DVT prophylaxis-heparin Full code need for inpt: management of recurrent pleural effusion with acute hypoxemic respiratory failure requiring chest tube placement, expert consultation, and will need inpt HD on admission Quality Stroke Does the patient have a stroke diagnosis?: No VTE Prior VTE?: No VTE Risk Level:: Medical - moderate - high VTE Device Contraindication: Treatment Not Indicated VTE Drug Contraindication: N/A - Med Ordered
[2023-12-03 11:19] LABS: Glucose, Whole Blood 198 mg/dL (60-115)
[2023-12-03 11:19] LABS: Magnesium 1.8 mg/dL (1.6-2.6); Phosphorus 6.7 mg/dL (2.7-4.5)
[2023-12-03] MEDS: Insulin Lispro 100 UNIT/ML 3 ML VIAL SUBCUT ×2 (11:39→16:51)
--- NOTE | 2023-12-03 13:59 | PM.NEUROCN ---
History of Present Illness Data of Consult Service Date: 12/03/23 Primary Care Provider: Jade Lewis MD [facility] Reason for consult: Weakness 68 years old man with end-stage renal disease I was asked to see for weakness and difficulty speaking. He was noted to be sometime talking normally and sometime not. Review of Systems Review of Systems: No recent cold or flu-like illness PMFSH Past Medical History Medical History (Updated 12/03/23 @ 14:01 by Lavelle Mckeon MD) Anemia ESRD (end stage renal disease) Chronic combined systolic and diastolic CHF (congestive heart failure) Chronic pericardial effusion Arthritis Asthma Restless leg syndrome Acute on chronic systolic and diastolic heart failure, NYHA class 3 Occlusive thrombus Pulmonary edema ROBERT (obstructive sleep apnea) Type 2 diabetes mellitus Hyperlipidemia Hypertension A-V fistula ESRD on dialysis Falling Family History Family History Father No problems noted. Mother No problems noted. Surgical History Surgical History Recurrent pleural effusion Pleural effusion on right (07/13/23) History of surgery H/O colonoscopy Social History Social History Household Members: Family Household Members Other:: son Housing: Apartment Do you presently have visiting nurse or other home services: Yes Alcohol intake: never Comment: counts correct Patient Tobacco Use Status: Former Tobacco user Tobacco use type: Cigarette Second Hand Smoke Exposure: No Advance Directives Date on File: 10/04/23 service: No Meds Allergies Allergy/AdvReac Type Severity Reaction Status Date / Time No Known Allergies Allergy Verified 11/28/23 07:13 Active Medications: Current Medications Acetaminophen (Acetaminophen 325 Mg Tablet) 650 mg PO Q6H PRN PRN Reason: Pain, Mild (Pain Scale 1-3), fever or headache Albuterol Sulfate (Albuterol Sulfate 90 Mcg 8 Gm Inhaler) 2 puff INHALE Q4H PRN PRN Reason: Shortness Of Breath Albuterol/Ipratropium (Albuterol/Iprat 2.5/0.5mg 3 Ml Ampul.Neb) 3 ml INHALE Q4H PRN PRN Reason: Wheezing Allopurinol (Allopurinol 100 Mg Tablet) 100 mg PO MOWEFR@1600 [facility] Last Admin: 12/01/23 16:20 Dose: 100 mg Aspirin (Aspirin Enteric Coated 81 Mg Tablet.Dr) 81 mg PO DAILY [facility] Last Admin: 12/03/23 08:25 Dose: 81 mg Atorvastatin Calcium (Atorvastatin Calcium 40 Mg Tablet) 40 mg PO DAILY [facility] Last Admin: 12/03/23 08:24 Dose: 40 mg Calcium Carbonate (Calcium Carbonate 750 Mg Tab.Chew) 750 mg PO Q4H PRN PRN Reason: Heartburn Carvedilol (Carvedilol 6.25 Mg Tablet) 6.25 mg PO BID [facility]; Protocol Last Admin: 12/03/23 08:24 Dose: 6.25 mg Doxazosin Mesylate (Doxazosin Mesylate 2 Mg Tablet) 4 mg PO BEDTIME [facility]; Protocol Last Admin: 12/02/23 21:10 Dose: 4 mg Fluticasone/Umeclidinium/Vilanterol (Fluticasone/Umeclidinium/Vilanterol 200/62.5/25 Blst.W.Dev) 1 puff INHALE RDAILY [facility] Last Admin: 12/03/23 08:19 Dose: 1 puff Furosemide (Furosemide 40 Mg Tablet) 80 mg PO DAILY [facility]; Protocol Last Admin: 12/03/23 08:24 Dose: 80 mg Heparin Sodium (Porcine) (Heparin Sodium,Porcine 5,000 Unit/Ml Vial) 5,000 unit SUBCUT Q12H [facility] Last Admin: 12/03/23 05:59 Dose: 5,000 unit Hydralazine HCl (Hydralazine Hcl 50 Mg Tablet) 50 mg PO BID [facility]; Protocol Hydromorphone HCl (Hydromorphone Hcl 0.5 Mg/0.5 Ml Syringe) 0.5 mg IVPUSH Q4H PRN; Protocol PRN Reason: Pain, Severe (Pain Scale 7-10) Last Admin: 12/03/23 04:16 Dose: 0.5 mg Vancomycin HCl 500 mg/ Sodium (Chloride) 110 mls @ 110 mls/hr IV MoWeFr@1800 [facility] Cefepime HCl 1 gm/ Sodium (Chloride) 50 mls @ 100 mls/hr IV Q24H [facility] Last Infusion: 12/02/23 17:18 Dose: Infused Insulin Glargine (Insulin Glargine,Hum.Rec.Anlog 100 Unit/Ml 10 Ml Vial) 25 unit SUBCUT BEDTIME [facility] Last Admin: 12/02/23 21:12 Dose: Not Given Insulin Human Lispro (Insulin Lispro 100 Unit/Ml 3 Ml Vial) 0 unit SUBCUT QIDACHS [facility]; Protocol Last Admin: 12/03/23 11:39 Dose: 2 unit Losartan Potassium (Losartan Potassium 25 Mg Tablet) 25 mg PO DAILY [facility]; Protocol Last Admin: 12/03/23 08:25 Dose: 25 mg Magnesium Hydroxide (Milk Of Magnesia 30 Ml Oral.Susp) 30 ml PO DAILY PRN PRN Reason: Constipation Omeprazole (Omeprazole 20 Mg Capsule.Dr) 20 mg PO DAILY@06 [facility] Last Admin: 12/03/23 05:55 Dose: 20 mg Pharmacy Consult (Consult Rx Vancomycin Dosing) 1 each MISCELLANE DAILY PRN PRN Reason: Consult order Pregabalin (Pregabalin 75 Mg Capsule) 75 mg PO DAILY [facility] Last Admin: 12/03/23 08:24 Dose: 75 mg Senna/Docusate Sodium (Sennosides/Docusate Sodium Tablet) 1 tab PO DAILY PRN PRN Reason: Constipation Home Medications ?Medication ?Instructions ?Recorded ?Confirmed ?Last Taken ?Type albuterol sulfate 90 mcg/actuation 2 puff inhalation Q4H PRN 04/19/22 11/28/23 Unknown History aerosol inhaler Shortness Of Breath allopurinol 100 mg tablet 100 mg PO MOWEFR@1600 04/19/22 11/28/23 11/27/23 History atorvastatin 40 mg tablet 40 mg PO DAILY 04/19/22 11/28/23 11/27/23 History doxazosin 4 mg tablet 4 mg PO BEDTIME 04/19/22 11/28/23 11/27/23 History furosemide 80 mg tablet 80 mg PO DAILY 04/19/22 11/28/23 11/27/23 History ipratropium 0.5 mg-albuterol 3 mg 3 ml inhalation Q4H PRN Wheezing 04/19/22 11/28/23 Unknown History (2.5 mg base)/3 mL nebulization soln omeprazole 20 mg capsule,delayed 20 mg PO DAILY@0630 04/19/22 11/28/23 11/27/23 History release sennosides 8.6 mg-docusate sodium 1 tab PO DAILY PRN Constipation 04/19/22 11/28/23 04/19/22 History 50 mg tablet (Senna-Time S) insulin glargine 100 unit/mL (3 22 unit subcut BEDTIME 04/10/23 11/28/23 11/27/23 History mL) subcutaneous pen (Lantus Solostar U-100 Insulin) insulin lispro 100 unit/mL 1 sliding scale dose subcut TIDAC 04/10/23 11/28/23 11/27/23 History subcutaneous pen aspirin 81 mg tablet,delayed 81 mg PO DAILY 06/20/23 11/28/23 11/27/23 History release pregabalin 75 mg capsule 75 mg PO DAILY 06/20/23 11/28/23 11/27/23 History fluticasone fur. 200 mcg-umeclid 1 ea inhalation DAILY 09/30/23 11/28/23 11/27/23 History 62.5 mcg-vilant 25 mcg inhalat.powder (Trelegy Ellipta) hydralazine 50 mg tablet 50 mg PO TID 09/30/23 11/28/23 11/27/23 History Physical Exam Vital Signs: Vital Signs: Last Vital Signs Temp 98.0 F 12/03/23 07:38 Pulse 77 12/03/23 08:20 Resp 18 12/03/23 08:20 BP 146/65 H 12/03/23 07:38 Pulse Ox 95 12/03/23 07:38 O2 Del Method Nasal Cannula 12/03/23 07:38 O2 Flow Rate 2.0 12/03/23 07:38 BMI result Body Mass Index 28.6 Neuro: Other: Alert and awake with fluctuating speech pattern. Initially he was talking normally but when I asked him what was wrong with him, he started to slur his speech. He was able to lift each extremity up including legs without difficulty. There was no significant weakness of either extremity. Deep tendon reflexes are absent with flexor plantars. Face was symmetrical. Visual thomas are full. Extraocular muscles were intact. Results Labs 12/02/23 13:13 12/02/23 13:13 Labs: Head CT did not reveal any significant abnormality. Microbiology Microbiology Results: Microbiology 11/28/23 10:34 Blood - Venous Blood Culture - Final No growth after 5 days. 11/28/23 10:34 Blood - Venous Blood Culture - Final No growth after 5 days. 11/28/23 14:00 Pleural Fluid Gram Stain - Final 11/28/23 14:00 Pleural Fluid Routine Culture - Final No growth after 2 days 11/28/23 14:00 Pleural Fluid Anaerobic Culture - Final NO GROWTH AFTER 5 DAYS Assessment and Plan (1) Somatization disorder: Status: Acute The pattern of speech abnormality is difficult to explain other than psychological in origin or somatization disorder. He does have end-stage renal disease, which typically may cause peripheral or axonal neuropathy resulting in generalized weakness. It may also cause significant vascular disease but his head CT did not reveal any significant disease. Reassurance and education is recommended. Procedures Date of Service Date of Service: 12/03/23
[2023-12-03 15:11] VITALS: BP 152/69; PULSE 67; RESP 18; TEMP 36.4; O2SAT 96
[2023-12-03 16:32] LABS: Glucose, Whole Blood 234 mg/dL (60-115)
[2023-12-03] MEDS: cefEPime HCl 1 GM in 0.9 % Sodium Chloride 50 ML IV (17:07)
[2023-12-03 19:49] LABS: Glucose, Whole Blood 117 mg/dL (60-115)
[2023-12-03 20:00] VITALS: BP 151/65; PULSE 73; RESP 20; TEMP 36.7
[2023-12-03] MEDS: Doxazosin Mesylate 2 MG TABLET 4 MG PO (20:21)
[2023-12-03] MEDS: Insulin Glargine,Hum.rec.anlog 100 UNIT/ML 10 ML VIAL 25 UNIT SUBCUT (20:24)
[2023-12-04] VITALS (8 sets, daily range): BP systolic 104–154; BP diastolic 55–79; PULSE 55–71; RESP 16–20; TEMP 36.8–37.2; O2SAT 94–98
[2023-12-04] MEDS: Heparin Sodium,Porcine 5,000 UNIT/ML VIAL 5000 UNIT SUBCUT ×2 (05:24→17:57)
[2023-12-04] MEDS: Omeprazole 20 MG CAPSULE.DR PO (05:24)
[2023-12-04 06:20] LABS: Hemoglobin 9.8 g/dl (14.0-18.0); PLT ABN DIST 1; Red Blood Count 4.26 X10*6/uL (4.60-5.80)
[2023-12-04 06:22] LABS: Hematocrit 32.5 % (42.0-52.0); Mean Corpuscular HGB Conc 30.2 g/dl (31.0-36.0); Mean Corpuscular Volume 76.3 fL (80.0-98.0); NRBC Pct Auto 0.2 /100WBC (0.0-0.2); Platelet Count 173 X10*3/uL (160-400); Red Cell Distribution Width 17.3 % (11.0-16.0); White Blood Count 9.6 X10*3/uL (4.8-10.8)
[2023-12-04 07:15] LABS: Blood Urea Nitrogen 80 mg/dL (9-16); Creatinine Clr Calc Pharmacy 5.8; Estimated Glomerular Filt Rate 4; Glucose Random 81 mg/dL (60-115)
--- NOTE | 2023-12-04 07:24 | PM.PNTS ---
Subjective Subjective Date of Service: 12/04/23 Interval history: Patient would like to have chest tube removed. He had scant output over the last 2 days of chest tube of serosanguineous fluid. Physical Exam Vital Signs: Vital Signs: Last Vital Signs Temp 98.4 F 12/04/23 03:26 Pulse 71 12/04/23 03:26 Resp 20 12/04/23 03:26 BP 104/55 L 12/04/23 03:26 Pulse Ox 94 12/04/23 03:26 O2 Del Method Nasal Cannula 12/04/23 03:26 O2 Flow Rate 2 12/04/23 03:26 BMI result Body Mass Index 28.6 Chest: Other: Chest tube uneventfully removed with occlusive dressing placed. Well tolerated. Procedures Date of Service Date of Service: 12/04/23 Progress Note: A&P Assessment and plan (1) Recurrent pleural effusion on right: Status: Acute Plan Status post chest tube removal. Postprocedure x-ray pending. Time Spent With Patient Time: Total time managing care of this patient today ____ minutes. Quality Stroke Does the patient have a stroke diagnosis?: No VTE Prior VTE?: No VTE Risk Level:: Medical - moderate - high VTE Device Contraindication: Treatment Not Indicated VTE Drug Contraindication: N/A - Med Ordered
[2023-12-04 07:46] LABS: Glucose, Whole Blood 82 mg/dL (60-115)
[2023-12-04 08:03] LABS: Anion Gap 23 (12-20); Carbon Dioxide 16 mmol/L (22-29); Chloride 102 mmol/L (96-108); Potassium 5.7 mmol/L (3.3-5.1); Sodium 135 mmol/L (135-145)
[2023-12-04] MEDS: Furosemide 40 MG TABLET 80 MG PO (08:06)
[2023-12-04] MEDS: hydrALAZINE HCl 50 MG TABLET PO (08:07)
[2023-12-04] MEDS: Pregabalin 75 MG CAPSULE PO (08:08)
[2023-12-04] MEDS: Losartan Potassium 25 MG TABLET PO (08:08)
[2023-12-04] MEDS: carvediloL 6.25 MG TABLET PO ×2 (08:08→20:55)
[2023-12-04] MEDS: Atorvastatin Calcium 40 MG TABLET PO (08:08)
[2023-12-04] MEDS: Aspirin Enteric Coated 81 MG TABLET.DR PO (08:08)
[2023-12-04 08:35] LABS: Glucose, Whole Blood 120 mg/dL (60-115)
--- NOTE | 2023-12-04 10:23 | PC.NURSE ---
chest tube removed at bedside by Dr. Valdes @ ~0715. pt tolerated well, chest tube intact at time of removal, dsg to right posterior chest CD&I, lungs are diminished in bases bilat. Pt reports increasing difficultly with talking and walking, Dr. Rai made aware.
--- NOTE | 2023-12-04 11:33 | P.PNIM_ITS ---
Subjective Subjective Date of Service: 12/04/23 Interval History: No new new changes, no new changes in CT still c/o of feeling week, and difficulty with speech at time Physical Exam 2 Vital Signs: Vital Signs: Last Vital Signs Temp 99.0 F 12/04/23 07:32 Pulse 69 12/04/23 07:32 Resp 18 12/04/23 07:32 BP 141/62 H 12/04/23 08:07 Pulse Ox 94 12/04/23 07:32 O2 Del Method Nasal Cannula 12/04/23 07:32 O2 Flow Rate 2.0 12/04/23 07:32 BMI result Body Mass Index 28.6 Const: Other: General: AO X 3, no acute distress Resp: CTA bilateral, chest tube in place CVS: S1,S2,RRR GI: +BS, NT, no distention Skin: No rash Neuro: motor grossly intact. strenght in legs 5/5, CN2 to 12 intact Psych: appropriate affect Objective Data Active Medications Acetaminophen (Acetaminophen 325 Mg Tablet) 650 mg PO Q6H PRN PRN Reason: Pain, Mild (Pain Scale 1-3), fever or headache Albuterol Sulfate (Albuterol Sulfate 90 Mcg 8 Gm Inhaler) 2 puff INHALE Q4H PRN PRN Reason: Shortness Of Breath Albuterol/Ipratropium (Albuterol/Iprat 2.5/0.5mg 3 Ml Ampul.Neb) 3 ml INHALE Q4H PRN PRN Reason: Wheezing Allopurinol (Allopurinol 100 Mg Tablet) 100 mg PO MOWEFR@1600 [facility] Last Admin: 12/01/23 16:20 Dose: 100 mg Documented By: MARY ANNE Aspirin (Aspirin Enteric Coated 81 Mg Tablet.) 81 mg PO DAILY [facility] Last Admin: 12/04/23 08:08 Dose: 81 mg Documented By: MARIE Atorvastatin Calcium (Atorvastatin Calcium 40 Mg Tablet) 40 mg PO DAILY [facility] Last Admin: 12/04/23 08:08 Dose: 40 mg Documented By: MARIE Calcium Carbonate (Calcium Carbonate 750 Mg Tab.Chew) 750 mg PO Q4H PRN PRN Reason: Heartburn Carvedilol (Carvedilol 6.25 Mg Tablet) 6.25 mg PO BID [facility]; Protocol Last Admin: 12/04/23 08:08 Dose: 6.25 mg Documented By: MARIE Doxazosin Mesylate (Doxazosin Mesylate 2 Mg Tablet) 4 mg PO BEDTIME [facility]; Protocol Last Admin: 12/03/23 20:21 Dose: 4 mg Documented By: JOSEFINA Fluticasone/Umeclidinium/Vilanterol (Fluticasone/Umeclidinium/Vilanterol 200/62.5/25 Blst.W.Dev) 1 puff INHALE RDAILY [facility] Last Admin: 12/04/23 09:02 Dose: Not Given Documented By: JESSICA Non-Admin Reason: Not In Room Furosemide (Furosemide 40 Mg Tablet) 80 mg PO DAILY [facility]; Protocol Last Admin: 12/04/23 08:06 Dose: 80 mg Documented By: MARIE Heparin Sodium (Porcine) (Heparin Sodium,Porcine 5,000 Unit/Ml Vial) 5,000 unit SUBCUT Q12H [facility] Last Admin: 12/04/23 05:24 Dose: 5,000 unit Documented By: JOSEFINA Hydralazine HCl (Hydralazine Hcl 50 Mg Tablet) 50 mg PO BID [facility]; Protocol Last Admin: 12/04/23 08:07 Dose: 50 mg Documented By: MARIE Hydromorphone HCl (Hydromorphone Hcl 0.5 Mg/0.5 Ml Syringe) 0.5 mg IVPUSH Q4H PRN; Protocol PRN Reason: Pain, Severe (Pain Scale 7-10) Last Admin: 12/03/23 04:16 Dose: 0.5 mg Vancomycin HCl 500 mg/ Sodium (Chloride) 110 mls @ 110 mls/hr IV MoWeFr@1800 [facility] Cefepime HCl 1 gm/ Sodium (Chloride) 50 mls @ 100 mls/hr IV Q24H [facility] Last Infusion: 12/03/23 17:39 Dose: Infused Documented By: HADLEY Insulin Glargine (Insulin Glargine,Hum.Rec.Anlog 100 Unit/Ml 10 Ml Vial) 25 unit SUBCUT BEDTIME [facility] Last Admin: 12/03/23 20:24 Dose: 25 unit Documented By: JOSEFINA Insulin Human Lispro (Insulin Lispro 100 Unit/Ml 3 Ml Vial) 0 unit SUBCUT QIDACHS [facility]; Protocol Last Admin: 12/04/23 07:51 Dose: Not Given Documented By: MARIE Non-Admin Reason: No Insulin Coverage Losartan Potassium (Losartan Potassium 25 Mg Tablet) 25 mg PO DAILY [facility]; Protocol Last Admin: 12/04/23 08:08 Dose: 25 mg Documented By: MARIE Magnesium Hydroxide (Milk Of Magnesia 30 Ml Oral.Susp) 30 ml PO DAILY PRN PRN Reason: Constipation Omeprazole (Omeprazole 20 Mg Capsule.) 20 mg PO DAILY@0630 [facility] Last Admin: 12/04/23 05:24 Dose: 20 mg Documented By: JOSEFINA Pharmacy Consult (Consult Rx Vancomycin Dosing) 1 each MISCELLANE DAILY PRN PRN Reason: Consult order Pregabalin (Pregabalin 75 Mg Capsule) 75 mg PO DAILY [facility] Last Admin: 12/04/23 08:08 Dose: 75 mg Documented By: MARIE Senna/Docusate Sodium (Sennosides/Docusate Sodium Tablet) 1 tab PO DAILY PRN PRN Reason: Constipation Labs 12/04/23 05:56 12/04/23 05:56 Labs: Laboratory Results - last 24 hr 12/03/23 12/03/23 12/04/23 16:28 19:41 05:56 MCV 76.3 L MCH 23.0 L MCHC 30.2 L RDW 17.3 H Plt Count 173 MPV Not Reportable Absolute Nucleated RBC 0.020 H Nucleated RBC % (auto) 0.2 Anion Gap 23 H Estim Creat Clear Calc 5.8 Estimated GFR 4 POC Glucose 234 H 117 H Random Glucose 81 Calcium 9.0 12/04/23 12/04/23 07:39 08:32 MCV MCH MCHC RDW Plt Count MPV Absolute Nucleated RBC Nucleated RBC % (auto) Anion Gap Estim Creat Clear Calc Estimated GFR POC Glucose 82 120 H Random Glucose Calcium Microbiology Microbiology Results: Microbiology 11/28/23 10:34 Blood Culture - Final Blood - Venous No growth after 5 days. 11/28/23 10:34 Blood Culture - Final Blood - Venous No growth after 5 days. 11/28/23 14:00 Gram Stain - Final Pleural Fluid Routine Culture - Final No growth after 2 days Anaerobic Culture - Final NO GROWTH AFTER 5 DAYS Assessment and Plan (1) Hypertensive urgency: Status: Acute (2) Recurrent pleural effusion on right: Status: Acute (3) Exudative pleural effusion: Status: Acute Plan 68-year-old male with history of ESRD on HD MWF on kidney transplant list (Dr. Shea), insulin-dependent type 2 diabetes, hypertension, hyperlipidemia, ROBERT on CPAP, heart failure with reduced ejection fraction EF 35% and grade 2 diastolic dysfunction to be observed for recurrent pleural effusion. #Recurrent pleural effusion due to decompensated HFrEF with acute hypoxemic respiratory failure, ?superimposed infectious etiology -had pleur-x catheter placed 07/12, removed [address] chest shows moderate R effusion that is slightly smaller, with air now observed in the pleural space, likely 2/2 tube removal -Pleural fluid analysis 09/2023 showed elevated WBC wtih 96% PMNs. treated with abx -Per thoracic surgery, chest tube placed by IR, fluid analysis pending -cover empirically with cefepime, vanco (initiated 11/27). M -continue supplemental O2 to maintain oximetry 90-92% -thoracic surgery doesn't think he's high risk for vats and pleurodesis and has removed #Generalized weakness, doutb stroke.. his speech is variable, he is clumsy on his feet yet has no trouble raising both legs against gravity and strenght symetric. CT head is negative for stroke -routine labs, cbc, bmp, ammonia unremarkable -PT eval, Neurolog recommends conservative management # uncontrolled hypertension in setting of ESRD -BP has been trending on low side, hold hydralazine for now #ESRD on HD MWF -Follows with Dr. swanson, nephro consult # elevated troponin -has chronically elevated troponin levels. -no anginal chest pain -likely demand due to uncontrolled hypertension as well as end-stage renal disease # heart failure reduced ejection fraction -does not appear to be acutely exacerbated -continue po diuretics # insulin-dependent type 2 diabetes -dose adjusted basal insulin, lantus at bedtime -Admelog on sliding scale, -POC glucose, diabetic diet #ROBERT -cpap/nocturnal o2 #Moderate persistent asthma -no exacerbation, continue home inhalers, albuterol prn #espistaxis--mild probably from dry oxygen DVT prophylaxis-heparin Full code need for inpt: management of recurrent pleural effusion with acute hypoxemic respiratory failure requiring chest tube placement, expert consultation, and will need inpt HD on admission Quality Stroke Does the patient have a stroke diagnosis?: No VTE Prior VTE?: No VTE Risk Level:: Medical - moderate - high VTE Device Contraindication: Treatment Not Indicated VTE Drug Contraindication: N/A - Med Ordered
[2023-12-04 11:47] LABS: Glucose, Whole Blood 104 mg/dL (60-115)
--- NOTE | 2023-12-04 13:14 | MHC.CM.PN ---
PER MD ROUNDS NOT MEDICALLY CLEARED FOR DC. PT EVAL PENDING. CM WILL CONTINUE TO FOLLOW.
--- NOTE | 2023-12-04 15:44 | P.PNNP_ITS ---
Subjective Subjective Date of Service: 12/04/23 Interval history: Seen on HD and examied,e vents noted Sleepy s/p CTube removal today Physical Exam 2 Vital Signs: Vital Signs: Last Vital Signs Temp 98.3 F 12/04/23 15:18 Pulse 64 12/04/23 15:18 Resp 16 12/04/23 15:18 BP 150/67 H 12/04/23 15:18 Pulse Ox 95 12/04/23 15:18 O2 Del Method Nasal Cannula 12/04/23 15:18 O2 Flow Rate 2 12/04/23 15:18 BMI result Body Mass Index 28.6 Const: General: alert and awake HEENT: Head: Yes normocephalic and Yes atraumatic Neck: Neck: Yes supple Resp: Auscultation: diminished lung sounds Cardio: Heart sounds: S1 normal heart sound present and S2 normal heart sound present GI: Palpation (GI): Soft to palpation and nontender Extrem: General: Yes no pedal edema Objective Data Labs 12/04/23 05:56 12/04/23 05:56 Labs: Laboratory Results - last 24 hr 12/03/23 12/03/23 12/04/23 16:28 19:41 05:56 WBC 9.6 RBC 4.26 L Hgb 9.8 L Hct 32.5 L MCV 76.3 L MCH 23.0 L MCHC 30.2 L RDW 17.3 H Plt Count 173 MPV Not Reportable Absolute Nucleated RBC 0.020 H Nucleated RBC % (auto) 0.2 Sodium 135 Potassium 5.7 H D Chloride 102 Carbon Dioxide 16 L Anion Gap 23 H BUN 80 H Creatinine 11.40 H* Estim Creat Clear Calc 5.8 Estimated GFR 4 POC Glucose 234 H 117 H Random Glucose 81 Calcium 9.0 12/04/23 12/04/23 12/04/23 07:39 08:32 11:36 WBC RBC Hgb Hct MCV MCH MCHC RDW Plt Count MPV Absolute Nucleated RBC Nucleated RBC % (auto) Sodium Potassium Chloride Carbon Dioxide Anion Gap BUN Creatinine Estim Creat Clear Calc Estimated GFR POC Glucose 82 120 H 104 Random Glucose Calcium Microbiology Microbiology Results: Microbiology 11/28/23 10:34 Blood - Venous Blood Culture - Final No growth after 5 days. 11/28/23 10:34 Blood - Venous Blood Culture - Final No growth after 5 days. 11/28/23 14:00 Pleural Fluid Gram Stain - Final 11/28/23 14:00 Pleural Fluid Routine Culture - Final No growth after 2 days 11/28/23 14:00 Pleural Fluid Anaerobic Culture - Final NO GROWTH AFTER 5 DAYS Procedures Date of Service Date of Service: 12/04/23 Assessment & Plan Assessment and plan (1) ESRD (end stage renal disease): Status: Acute (2) Recurrent pleural effusion on right: Status: Acute (3) HFrEF (heart failure with reduced ejection fraction): Status: Acute (4) Anemia: Status: Acute Plan 1, ESRD: on HD 2. PL Effussion: s/p CTube; decr outptu and ques removal 3. HFrEFa LVEF 35% 4. Nephrogenic Anmeia: no need for EPO at this time REC: cont HD mwf, cont Phos binders, and renal diet Will follow with team Time Spent With Patient Time: Total time managing care of this patient today ____ minutes. Progress Note: Quality Stroke Does the patient have a stroke diagnosis?: No
[2023-12-04 16:10] LABS: Glucose, Whole Blood 102 mg/dL (60-115)
[2023-12-04] MEDS: allopurinoL 100 MG TABLET PO (16:23)
[2023-12-04] MEDS: cefEPime HCl 1 GM in 0.9 % Sodium Chloride 50 ML IV (16:23)
[2023-12-04] MEDS: vancomycin HCL 500 MG in 0.9 % Sodium Chloride 100 ML 110 MG IV (17:58)
[2023-12-04 19:46] LABS: Glucose, Whole Blood 196 mg/dL (60-115)
[2023-12-04] MEDS: Insulin Glargine,Hum.rec.anlog 100 UNIT/ML 10 ML VIAL 25 UNIT SUBCUT (20:47)
[2023-12-04] MEDS: Insulin Lispro 100 UNIT/ML 3 ML VIAL SUBCUT (20:47)
[2023-12-04] MEDS: Doxazosin Mesylate 2 MG TABLET 4 MG PO (20:55)
[2023-12-05] VITALS (7 sets, daily range): BP systolic 132–155; BP diastolic 57–78; PULSE 58–69; RESP 15–20; TEMP 36.1–36.7; O2SAT 95–99
[2023-12-05] MEDS: Omeprazole 20 MG CAPSULE.DR PO (05:29)
[2023-12-05] MEDS: Heparin Sodium,Porcine 5,000 UNIT/ML VIAL 5000 UNIT SUBCUT ×2 (05:32→17:08)
[2023-12-05 07:36] LABS: Glucose, Whole Blood 118 mg/dL (60-115)
[2023-12-05] MEDS: Aspirin Enteric Coated 81 MG TABLET.DR PO (08:14)
[2023-12-05] MEDS: Furosemide 40 MG TABLET 80 MG PO (08:14)
[2023-12-05] MEDS: Atorvastatin Calcium 40 MG TABLET PO (08:14)
[2023-12-05] MEDS: Losartan Potassium 25 MG TABLET PO (08:14)
[2023-12-05] MEDS: carvediloL 6.25 MG TABLET PO ×2 (08:14→20:21)
[2023-12-05] MEDS: Pregabalin 75 MG CAPSULE PO (08:15)
[2023-12-05] MEDS: Fluticasone/Umeclidinium/Vilanterol 200/62.5/25 BLST.W.DEV 1 PUFF INHALE (09:34)
--- NOTE | 2023-12-05 09:54 | HO.PM.IMPN ---
Subjective Subjective Date of Service: 12/05/23 Interval History: Chest tube out yeterday still feel generally weak and shakey on feet speech is better Physical Exam Vital Signs: Vital Signs: Last Vital Signs Temp 98.0 F 12/05/23 07:24 Pulse 67 12/05/23 09:34 Resp 15 12/05/23 09:34 BP 132/57 L 12/05/23 08:40 Pulse Ox 99 12/05/23 07:24 O2 Del Method Nasal Cannula 12/05/23 07:24 O2 Flow Rate 2.0 12/05/23 07:24 BMI result Body Mass Index 28.6 General: AO X 3, no acute distress Resp: CTA bilateral CVS: S1,S2,RRR GI: +BS, NT, no distention Skin: No rash Neuro: motor grossly intact Psych: appropriate affect Const: Other: General: AO X 3, no acute distress Resp: CTA bilateral, chest tube in place CVS: S1,S2,RRR GI: +BS, NT, no distention Skin: No rash Neuro: motor grossly intact. strenght in legs 5/5, CN2 to 12 intact Psych: appropriate affect Objective Data Active Medications Acetaminophen (Acetaminophen 325 Mg Tablet) 650 mg PO Q6H PRN PRN Reason: Pain, Mild (Pain Scale 1-3), fever or headache Albuterol Sulfate (Albuterol Sulfate 90 Mcg 8 Gm Inhaler) 2 puff INHALE Q4H PRN PRN Reason: Shortness Of Breath Albuterol/Ipratropium (Albuterol/Iprat 2.5/0.5mg 3 Ml Ampul.Neb) 3 ml INHALE Q4H PRN PRN Reason: Wheezing Allopurinol (Allopurinol 100 Mg Tablet) 100 mg PO MOWEFR@1600 [facility] Last Admin: 12/04/23 16:23 Dose: 100 mg Documented By: JAYME Aspirin (Aspirin Enteric Coated 81 Mg Tablet.) 81 mg PO DAILY [facility] Last Admin: 12/05/23 08:14 Dose: 81 mg Documented By: MARIE Atorvastatin Calcium (Atorvastatin Calcium 40 Mg Tablet) 40 mg PO DAILY [facility] Last Admin: 12/05/23 08:14 Dose: 40 mg Documented By: MARIE Calcium Carbonate (Calcium Carbonate 750 Mg Tab.Chew) 750 mg PO Q4H PRN PRN Reason: Heartburn Carvedilol (Carvedilol 6.25 Mg Tablet) 6.25 mg PO BID [facility]; Protocol Last Admin: 12/05/23 08:14 Dose: 6.25 mg Documented By: MARIE Doxazosin Mesylate (Doxazosin Mesylate 2 Mg Tablet) 4 mg PO BEDTIME [facility]; Protocol Last Admin: 12/04/23 20:55 Dose: 4 mg Documented By: SYED Fluticasone/Umeclidinium/Vilanterol (Fluticasone/Umeclidinium/Vilanterol 200/62.5/25 Blst.W.Dev) 1 puff INHALE RDAILY [facility] Last Admin: 12/05/23 09:34 Dose: 1 puff Documented By: JESSICA Furosemide (Furosemide 40 Mg Tablet) 80 mg PO DAILY [facility]; Protocol Last Admin: 12/05/23 08:14 Dose: 80 mg Documented By: MARIE Heparin Sodium (Porcine) (Heparin Sodium,Porcine 5,000 Unit/Ml Vial) 5,000 unit SUBCUT Q12H [facility] Last Admin: 12/05/23 05:32 Dose: 5,000 unit Documented By: SYED Hydromorphone HCl (Hydromorphone Hcl 0.5 Mg/0.5 Ml Syringe) 0.5 mg IVPUSH Q4H PRN; Protocol PRN Reason: Pain, Severe (Pain Scale 7-10) Last Admin: 12/03/23 04:16 Dose: 0.5 mg Vancomycin HCl 500 mg/ Sodium (Chloride) 110 mls @ 110 mls/hr IV MoWeFr@1800 [facility] Cefepime HCl 1 gm/ Sodium (Chloride) 50 mls @ 100 mls/hr IV Q24H [facility] Last Infusion: 12/04/23 17:53 Dose: Infused Documented By: MARIE Insulin Glargine (Insulin Glargine,Hum.Rec.Anlog 100 Unit/Ml 10 Ml Vial) 25 unit SUBCUT BEDTIME [facility] Last Admin: 12/04/23 20:47 Dose: 25 unit Documented By: SYED Insulin Human Lispro (Insulin Lispro 100 Unit/Ml 3 Ml Vial) 0 unit SUBCUT QIDACHS [facility]; Protocol Last Admin: 12/05/23 07:37 Dose: Not Given Documented By: MARIE Non-Admin Reason: No Insulin Coverage Losartan Potassium (Losartan Potassium 25 Mg Tablet) 25 mg PO DAILY [facility]; Protocol Last Admin: 12/05/23 08:14 Dose: 25 mg Documented By: MARIE Magnesium Hydroxide (Milk Of Magnesia 30 Ml Oral.Susp) 30 ml PO DAILY PRN PRN Reason: Constipation Omeprazole (Omeprazole 20 Mg Capsule.) 20 mg PO DAILY@0630 [facility] Last Admin: 12/05/23 05:29 Dose: 20 mg Documented By: SYED Pharmacy Consult (Consult Rx Vancomycin Dosing) 1 each MISCELLANE DAILY PRN PRN Reason: Consult order Pregabalin (Pregabalin 75 Mg Capsule) 75 mg PO DAILY [facility] Last Admin: 12/05/23 08:15 Dose: 75 mg Documented By: MARIE Senna/Docusate Sodium (Sennosides/Docusate Sodium Tablet) 1 tab PO DAILY PRN PRN Reason: Constipation Labs 12/04/23 05:56 12/04/23 05:56 Labs: Laboratory Results - last 24 hr 12/04/23 12/04/23 12/04/23 11:36 15:54 16:48 POC Glucose 104 102 Random Vancomycin 13.0 L 12/04/23 12/05/23 19:40 07:25 POC Glucose 196 H 118 H Random Vancomycin Assessment and Plan (1) Hypertensive urgency: Status: Acute (2) Recurrent pleural effusion on right: Status: Acute (3) Exudative pleural effusion: Status: Acute Plan 68-year-old male with history of ESRD on HD MWF on kidney transplant list (Dr. Shea), insulin-dependent type 2 diabetes, hypertension, hyperlipidemia, ROBERT on CPAP, heart failure with reduced ejection fraction EF 35% and grade 2 diastolic dysfunction to be observed for recurrent pleural effusion. #Recurrent pleural effusion due to decompensated HFrEF with acute hypoxemic respiratory failure, ?superimposed infectious etiology -had pleur-x catheter placed 07/12, removed [address] chest shows moderate R effusion that is slightly smaller, with air now observed in the pleural space, likely 2/2 tube removal -Pleural fluid analysis 09/2023 showed elevated WBC wtih 96% PMNs. treated with abx -Per thoracic surgery, chest tube placed by IR, fluid analysis pending -cover empirically with cefepime, vanco (initiated 11/27). M -continue supplemental O2 to maintain oximetry 90-92% -thoracic surgery doesn't think he's high risk for vats and pleurodesis and has removed #Generalized weakness, no stroke on CT.. his speech is better, he is clumsy on his feet yet has no trouble raising both legs against gravity and strenght symetric. CT head is negative for stroke -routine labs, cbc, bmp, ammonia unremarkable -PT eval recommending STR, Neurolog recommends conservative management # uncontrolled hypertension in setting of ESRD, probably not compliant at home. BP much lower now and Hydralazine stopped #ESRD on HD MWF -Follows with Dr. swanson, nephro consult # elevated troponin -has chronically elevated troponin levels. -no anginal chest pain -likely demand due to uncontrolled hypertension as well as end-stage renal disease # heart failure reduced ejection fraction -does not appear to be acutely exacerbated -continue po diuretics # insulin-dependent type 2 diabetes -dose adjusted basal insulin, lantus at bedtime -Admelog on sliding scale, -POC glucose, diabetic diet #ROBERT -cpap/nocturnal o2 #Moderate persistent asthma -no exacerbation, continue home inhalers, albuterol prn #espistaxis--mild probably from dry oxygen DVT prophylaxis-heparin Full code need for inpt: management of recurrent pleural effusion with acute hypoxemic respiratory failure requiring chest tube placement, expert consultation, and will need inpt HD on admission STR. when bed available Quality Stroke Does the patient have a stroke diagnosis?: No VTE Prior VTE?: No VTE Risk Level:: Medical - moderate - high VTE Device Contraindication: Treatment Not Indicated VTE Drug Contraindication: N/A - Med Ordered
[2023-12-05 11:25] LABS: Glucose, Whole Blood 180 mg/dL (60-115)
[2023-12-05] MEDS: Insulin Lispro 100 UNIT/ML 3 ML VIAL SUBCUT ×2 (11:41→20:21)
[2023-12-05 16:14] LABS: Glucose, Whole Blood 130 mg/dL (60-115)
[2023-12-05] MEDS: cefEPime HCl 1 GM in 0.9 % Sodium Chloride 50 ML IV (17:08)
[2023-12-05 20:10] LABS: Glucose, Whole Blood 169 mg/dL (60-115)
[2023-12-05] MEDS: Doxazosin Mesylate 2 MG TABLET 4 MG PO (20:19)
[2023-12-05] MEDS: Insulin Glargine,Hum.rec.anlog 100 UNIT/ML 10 ML VIAL 25 UNIT SUBCUT (20:20)
[2023-12-06 03:10] VITALS: BP 172/77; PULSE 61; RESP 18; TEMP 36.2; O2SAT 98
[2023-12-06 03:23] VITALS: BP 168/62
[2023-12-06 07:08] LABS: Glucose, Whole Blood 68 mg/dL (60-115)
[2023-12-06 10:04] VITALS: BP 170/84; PULSE 64; RESP 16; TEMP 36.6; O2SAT 98
[2023-12-06] MEDS: carvediloL 6.25 MG TABLET PO ×2 (10:32→20:50)
[2023-12-06] MEDS: Losartan Potassium 25 MG TABLET PO (10:32)
[2023-12-06] MEDS: Atorvastatin Calcium 40 MG TABLET PO (10:32)
[2023-12-06] MEDS: Pregabalin 75 MG CAPSULE PO (10:32)
[2023-12-06] MEDS: Aspirin Enteric Coated 81 MG TABLET.DR PO (10:32)
[2023-12-06] MEDS: Furosemide 40 MG TABLET 80 MG PO (10:32)
[2023-12-06 10:36] LABS: Glucose, Whole Blood 70 mg/dL (60-115)
--- NOTE | 2023-12-06 15:28 | MHC.CM.PN ---
Per not cleared for dc. Awaiting MRI report. Plan for dc to [facility] tomorrow. CM reviewed w/ patient via farm consultant. Second IMM delivered.
[2023-12-06 15:41] VITALS: BP 157/76; PULSE 62; RESP 20; TEMP 36.4; O2SAT 93
[2023-12-06 16:15] LABS: Glucose, Whole Blood 172 mg/dL (60-115)
[2023-12-06] MEDS: Amoxicillin/Potassium Clav 875 MG TABLET PO (16:22)
[2023-12-06] MEDS: allopurinoL 100 MG TABLET PO (16:22)
[2023-12-06] MEDS: Insulin Lispro 100 UNIT/ML 3 ML VIAL SUBCUT ×2 (16:22→20:51)
[2023-12-06] MEDS: Doxycycline Monohydrate 100 MG CAPSULE PO (16:22)
[2023-12-06 16:59] LABS: Vancomycin Random 14.1 mcg/mL (15-20)
[2023-12-06] MEDS: Heparin Sodium,Porcine 5,000 UNIT/ML VIAL 5000 UNIT SUBCUT (18:09)
[2023-12-06 19:24] VITALS: BP 142/72; PULSE 72; RESP 20; TEMP 37.1; O2SAT 93
[2023-12-06 20:09] LABS: Glucose, Whole Blood 163 mg/dL (60-115)
[2023-12-06] MEDS: Doxazosin Mesylate 2 MG TABLET 4 MG PO (20:50)
[2023-12-06] MEDS: Insulin Glargine,Hum.rec.anlog 100 UNIT/ML 10 ML VIAL 25 UNIT SUBCUT (20:50)
[2023-12-07] MEDS: Doxycycline Monohydrate 100 MG CAPSULE PO (03:39)
[2023-12-07 03:50] VITALS: BP 168/56; PULSE 61; RESP 18; TEMP 36.4; O2SAT 94
[2023-12-07] MEDS: Heparin Sodium,Porcine 5,000 UNIT/ML VIAL 5000 UNIT SUBCUT (05:49)
[2023-12-07] MEDS: Omeprazole 20 MG CAPSULE.DR PO (05:50)
[2023-12-07 07:41] LABS: Glucose, Whole Blood 172 mg/dL (60-115)
[2023-12-07 07:57] VITALS: PULSE 68; O2SAT 98
[2023-12-07] MEDS: Fluticasone/Umeclidinium/Vilanterol 200/62.5/25 BLST.W.DEV 1 PUFF INHALE (07:57)
--- NOTE | 2023-12-07 07:58 | P.DS_ITS ---
DS: Providers Provider Date of Service: 12/07/23 Date of admission: 11/28/23 16:11 Primary care physician: Jade Lewis MD Consults: 11/28/23 16:09 Consult to Nephrology Routine Consulting Provider: [facility] Reason for consultation: ESRD on HD MWF Consult to Thoracic Surgery Routine Consulting Provider: Rohith Valdes Reason for consultation: recurrent pleural effusion s/p chest tube 12/03/23 10:59 Consult to Neurology Routine Consulting Provider: [facility] Reason for consultation: c/o weakness, can't walk and says he can't talk DS: Diagnosis Discharge Diagnosis (1) Hypertensive urgency: Status: Acute (2) Recurrent pleural effusion on right: Status: Acute (3) Exudative pleural effusion: Status: Acute DS: Summary Hospital Course Hospital Course: admission hpi Chief Complaint: sob 68-year-old male with history of ESRD on HD MWF on kidney transplant list (Dr. Shea), insulin-dependent type 2 diabetes, hypertension, hyperlipidemia, ROBERT on CPAP, heart failure with reduced ejection fraction EF 35% and grade 2 diastolic dysfunction presented to the ED earlier today for evaluation of dyspnea. patient has history of recurrent pleural effusion with pleur-x catheter placed 07/2023 and then removed about 2 weeks ago. Admitted again in August with fluid analysis showing probable exudative component with elevated WBCs and PMNs, treated with abx. However, effusion recurred. He has been following with thoracic surgery outpt and had pleur-x removed 2 weeks ago. had been doing well until about 3 days ago when he began developing ya and orthopnea. No weight gain or edema. He has ESRD and produces only scant urine, a few drops, last dialyzed yesterday. No fevers, chills, abd pain, n/v/d, lightheadedness, headaches, palpitations, or chest pain. Since arrival has been significantly hypertensive. Reports compliance with antihypertensive agents but still wtih BP up to 224/100 and was given 20 mg IV labetalol, 10 mg IV hydralazine, 10 mg amlodipine, 25 mg losartan, 6.125 mg Coreg, and 1/2 inch nitro paste. He was also hypoxic around 80 % on arrival, placed on 3 L supplemental O2 now maintaining oximetry 92%. He has a mild leukocytosis of 11.1. Has a stable microcytic anemia with H/H 10.5/35.3%. Renal function baseline, electrolyte levels normal except for sodium 146. Lactic acid 0.6. LDH 416. Troponin 76. BNP 2704. Procalcitonin 0.55. Negative for COVID, flu, RSV. Chest CT showed right-sided chest tube that has been removed with moderate right effusion persisting but slightly smaller with air no observed within the pleural space. In the ED received antihypertensives as above as well as IV cefepime and vancomycin as well hyd romorphone for pain. Taken to IR for CT guided chest tube placement. Brown fluid drained. Cultures/fluid analysis sent. Seen with Alisson Luna PA-C, at bedside and trinidadian interpretor. Hospital course: A 68-year-old male with a history of end-stage renal disease (ESRD) on hemodialysis (MWF) and on the kidney transplant list (under Dr. Shea), insulin- dependent type 2 diabetes, hypertension, hyperlipidemia, obstructive sleep apnea (on CPAP), heart failure with reduced ejection fraction (EF 35%) and grade 2 diastolic dysfunction, was admitted for observation due to recurrent pleural effusion. He presented with shortness of breath, and workup revealed a moderate right-sided pleural effusion with possible underlying consolidation. Acute hypoxic respiratory failure. He previously had a PleurX catheter placed on July 12, which was removed two weeks prior to admission. On 11/27, he was started on Cefepime and Vancomycin. A new pleural catheter was inserted by interventional radiology and managed by thoracic surgery. Due to the recurrent nature of the effusion, thoracic surgery considered pleurodesis or decortication but deemed him a high-risk candidate. The recommendation was to manage with periodic thoracentesis. Pleural fluid cultures showed no growth, and Cefepime and Vancomycin were discontinued on 12/05. The patient was started on Augmentin and Doxycycline, with a plan to continue treatment for an additional 5 days. Generalized weakness:The patient has been experiencing generalized weakness and incoherent speech. Neurological exams have revealed no focal deficits. A head CT showed no acute findings, and an MRI ruled out stroke. Neurology evaluated the patient and suggested that the weakness may be related to neuropathy, recommending conservative management. Physical therapy has been working with the patient, and they have recommended short-term rehabilitation, which the patient has agreed to. A lumbar spine MRI was also performed due to leg weakness, revealing a disc bulge but no compression. The patient reports no back or leg pain, leg strength is normal, and there is no urinary or stool incontinence. Additionally, the patient's son mentioned that he has experienced similar symptoms in the past, which improved with rehabilitation. HTN--The patient also presented with accelerated hypertension, with systolic blood pressure ranging from 220 to 230 mmHg. He was initially treated with IV antihypertensives and restarted on his home medications. Hydralazine, starting at 50 mg three times daily, was titrated up to 75 mg and 100 mg three times daily, but resulted in lower blood pressure readings, leading to a reduction back to his home dose. Despite this, he continued to have blood pressure fluctuations, so Hydralazine was stopped and may be restarted at a lower dose. ESRD on HD MWF -Follows with Dr. swanson, nephro consult elevated troponin -has chronically elevated troponin levels. -no anginal chest pain -likely demand due to uncontrolled hypertension as well as end-stage renal disease heart failure reduced ejection fraction -does not appear to be acutely exacerbated -continue po diuretics Ear fullness--Bilateral mastoid and left middle ear effusions, should follow up with ENT on outpatient basis insulin-dependent type 2 diabetes -Continue Lantus and SSI ROBERT -cpap/nocturnal o2 Moderate persistent asthma -no exacerbation, continue home inhalers, albuterol prn espistaxis--mild probably from O2, was transient. To short term rehab Time Attestation Discharge Coordination Time (in mins): 45 Quality: Safe Use of Opioids Does Pt have an Active Cancer Diagnosis on the Problem List?: No Quality: Stroke Does the patient have a stroke diagnosis?: No Physical Exam Vital Signs: Vital Signs: Last Vital Signs Temp 97.6 F 12/07/23 03:50 Pulse 61 12/07/23 03:50 Resp 18 12/07/23 03:50 BP 168/56 H 12/07/23 03:50 Pulse Ox 94 12/07/23 03:50 O2 Del Method Nasal Cannula 12/07/23 03:50 O2 Flow Rate 2 12/07/23 03:50 BMI result Body Mass Index 28.6 DS: Data Data Completed and Pending Completed studies during hospitalization [Text1]: Procedures Drainage of Right Pleural Cavity, Percutaneous Approach (04/10/23) Introduction of Other Therapeutic Substance into Pleural Cavity, Percutaneous Approach (09/30/23) Introduction of Other Thrombolytic into Pleural Cavity, Percutaneous Approach (09/30/23) Performance of Urinary Filtration, Intermittent, Less than 6 Hours Per Day (09/30/23) Labs on day of discharge: Laboratory Results - last 24 hr 12/06/23 12/06/23 12/06/23 10:33 16:04 16:18 POC Glucose 70 172 H Random Vancomycin 14.1 L 12/06/23 12/07/23 19:55 07:33 POC Glucose 163 H 172 H Random Vancomycin Discharge Plan Discharge Anticipated Discharge Date/Time: 12/07/23 10:40 Patient Disposition: Home Health Service Discharge Diagnosis: Recurrent R pleural effusion, Pneumonia, accelerated HTN, leg weakness Referrals: [facility] [Outside] - 3-5 Days (resume services) Jade Lewis MD [Primary Care Provider] - 1 Week Boris Castellon [Physician] - 1 Week Discharge Medications: New doxycycline monohydrate 100 mg Capsule 100 mg PO Q12H Qty: 10 0RF fluticasone propionate 50 mcg/actuation [place],Suspension 1 spray intranasal BID Qty: 16 0RF amoxicillin-pot clavulanate 500-125 mg tablet 1 tab PO Q24H Qty: 5 0RF Continued (DME) PleurX catheter drainage kits 1000cc kits See Rx Instructions .Route .MEDSUPPLY Qty: 10 6RF Rx Instructions: As directed atorvastatin 40 mg tablet 40 mg PO DAILY ipratropium-albuterol 0.5 mg-3 mg(2.5 mg base)/3 mL solution for nebulization 3 ml INHALATION Q4H PRN (Reason: Wheezing) sennosides-docusate sodium [Senna-Time S] 8.6-50 mg tablet 1 tab PO DAILY PRN (Reason: Constipation) allopurinol 100 mg tablet 100 mg PO MOWEFR@1600 Rx Instructions: GIVE AFTER DIALYSIS furosemide 80 mg tablet 80 mg PO DAILY omeprazole 20 mg capsule,delayed release(DR/EC) 20 mg PO DAILY@0630 doxazosin 4 mg tablet 4 mg PO BEDTIME albuterol sulfate 90 mcg/actuation HFA aerosol inhaler 2 puff INHALATION Q4H PRN (Reason: Shortness Of Breath) Trelegy Ellipta 200-62.5-25 mcg blister with device 1 ea INHALATION DAILY carvedilol 6.25 mg Tablet 6.25 mg PO BID Qty: 60 0RF Protocol: Hold for SBP/HR < HOLD for SBP < : 90 HOLD for HR < : 60 losartan 25 mg Tablet 25 mg PO DAILY Qty: 90 0RF Protocol: Hold for SBP< HOLD for SBP < : 90 insulin lispro 100 unit/mL insulin pen 1 sliding scale dose subcut TIDAC insulin glargine [Lantus Solostar U-100 Insulin] 100 unit/mL (3 mL) insulin pen 22 unit subcut BEDTIME aspirin 81 mg tablet,delayed release (DR/EC) 81 mg PO DAILY pregabalin 75 mg capsule 75 mg PO DAILY Changed hydralazine 50 mg tablet 25 mg PO TID Qty: 90 0RF Discharge Orders: Discharge Order (Routine); Ordered 12/07/23 Ordered By: Edgardo Winkler Diet: Diabetic diet Activity on Discharge: As tolerated Stand Alone Forms: Patient Portal Discharge page Print Language: Somali Care Plan Goals: recovery from pneumonia, recurrent pleural effusion Health Concerns: recurrent pleural effusion pneumonia weakness acclerated HTN Plan of Treatment: take augmentin and Doxycycline as recommended Decrease Hydralazine to 25 mg three times a day follow up with your Doctor you will need periodid cxr to check for recurrent effusin and get fluid drain Assessment: see above Patient Instructions: Pleural Effusion (DC), Pneumonia (DC) Discharge Date/Time: 12/07/23 15:24
[2023-12-07] MEDS: Insulin Lispro 100 UNIT/ML 3 ML VIAL SUBCUT (08:10)
[2023-12-07 08:50] VITALS: BP 180/80; PULSE 68; RESP 14; TEMP 36.6; O2SAT 98
[2023-12-07] MEDS: carvediloL 6.25 MG TABLET PO (09:20)
[2023-12-07] MEDS: Atorvastatin Calcium 40 MG TABLET PO (09:20)
[2023-12-07] MEDS: Furosemide 40 MG TABLET 80 MG PO (09:20)
--- NOTE | 2023-12-07 09:20 | MHC.CM.PN ---
Addendum entered by Nette Gutierrez RN 12/07/23 11:37: LM for [facility] [place] to inform of dc. Addendum entered by Nette Gutierrez RN 12/07/23 11:11: Patient now declining STR. CM met with patient, son and MD at [facility]. fish net stringer assisting. Plan for patient to return home w/ son/HCP Nestor, with other son as PRODUCTION SUPV. [facility] will resume services. Son to transport at 3pm. RN aware. Original Note: Per MD patient medically cleared for dc to STR. BLS transport booked for 3pm to [facility]. Patient, MD, RN aware. Patient agreeable to plan. LM for son/HCP to update. Last IMM delivered 12/05.
[2023-12-07] MEDS: Losartan Potassium 50 MG TABLET PO (09:21)
[2023-12-07] MEDS: amLODIPine Besylate 5 MG TABLET PO (09:21)
[2023-12-07] MEDS: Pregabalin 75 MG CAPSULE PO (09:21)
[2023-12-07] MEDS: Aspirin Enteric Coated 81 MG TABLET.DR PO (09:21)
--- NOTE | 2023-12-07 11:08 | W.MHC.F2F ---
Service Date Service Date: 12/07/23 Encounter Date of encounter: 12/07/23 Reasons for Services Signs and symptoms assessed: physical deconditioning Reason for physical therapy: home safety and mobility and therapeutic exercises Homebound: Leaving the home is medically contraindicated at this time without the asist of a device and/or another person due th the listed conditions above and below. Reason homebound: unsteady gait / fall risk Certification: Based on the above findings, I certify that this patient is confined to the home and needs intermittent fpc care, physical therapy and/or speech therapy, or continues to need occupational therapy. The patient is under my care, and I have initiated the establishment of the plan of care. The patient will be followed by a physician who will periodically review the plan of care. Time Spent With Patient Time: Total time managing care of this patient today ____ minutes.
[2023-12-07 11:39] LABS: Glucose, Whole Blood 131 mg/dL (60-115)
[2023-12-07 15:17] VITALS: BP 180/80
[2023-12-07] MEDS: hydrALAZINE HCl 25 MG TABLET PO (15:17)
[2023-12-07 15:20] VITALS: BP 180/80; PULSE 62; RESP 16; TEMP 36.4; O2SAT 98
--- NOTE | 2023-12-07 15:21 | PC.NURSE ---
BP elevated prior to discharge. Patient asymptomatic. Dr. Winkler notified. One time dose of hydralazine administered. See MAR for details.
[2023-12-08 21:59] LABS: Hepatitis BE Antigen NON-REACTIVE (NON-REACTIVE)
--- NOTE | 2023-12-21 18:06 | P.CDIM_ITS ---
PROVIDER RESPONSE TEXT: To clarify, the appropriate diagnosis supported by the clinical indicators: Acute on chronic systolic Congestive heart failure with exacerbation QUERY TEXT: PHYSICIAN'S DOCUMENTATION REQUEST Date of Query: 12/21/2023 09:47 AM EDT Patient Name: Beau Marie Admit Date: 11/28/2023 Dear Hamlet Rai MD, RETROSPECTIVE QUERY A review of the medical record indicates additional documentation may be needed. Please review below and update the documentation accordingly. Clinical Indicators: Progress notes: Recurrent pleural effusion due to decompensated HFrEF with acute hypoxemic respirator y failure, ? superimposed infectious etiology Dx: Heart failure with reduced ejection fraction does not appear to be acutely exacerbated. continue po diuretics dyspnea, nocturnal O2, home medication Furosemide 80 mg PO daily BNP 2704 H Clarify which of the following accurately represents the acuity of the noted CHF within the medical r ecord for clarity of this diagnosis: Acute on chronic systolic Congestive heart failure with exacerbation Chronic systolic Congestive heart failure Other (explain) Clinically unable to determine (explain) Thank you, Alberta Parikh, CCS, CDIS Use of terms such as suspected, likely, concern for, or probable (associated with a specific diagnosi s that is being evaluated, monitored, or treated as if it exists) are acceptable and can be coded in the inpatient se tting, when documented at the time of discharge. Please use your independent medical judgment in providing your response. THIS QUERY IS PART OF THE PERMANENT MEDICAL RECORD
--- NOTE | 2023-12-21 18:08 | P.CDIM_ITS ---
PROVIDER RESPONSE TEXT: To clarify, the appropriate diagnosis supported by the clinical indicators: Pneumonia: and parapneumonic effusion QUERY TEXT: PHYSICIAN'S DOCUMENTATION REQUEST Date of Query: 12/21/2023 09:54 AM EDT Patient Name: Beau Marie Admit Date: 11/28/2023 Dear [place]let Rai MD, RETROSPECTIVE QUERY A review of the medical record indicates additional documentation may be needed. Please review below and update the documentation accordingly. Clinical Indicators: Progress notes: Recurrent pleural effusions on right. Management of recurrent pleural effusion with acute hypoxemic respiratory failure requiring chest tub e placement. Discharge summary - Care plan goals: Recovering from Pneumonia Health concern: Pneumonia/recurrent pleural effusion Based on the above, consistency of a diagnosis documented only within the Discharge Summary: Pneumonia Present on admission, resolved, possible, suspected etc. Recurrent pleural effusions Other (explain) Clinically unable to determine (explain) Thank you, Alberta Parikh, CCS, CDIS Use of terms such as suspected, likely, concern for, or probable (associated with a specific diagnosi s that is being evaluated, monitored, or treated as if it exists) are acceptable and can be coded in the inpatient se tting, when documented at the time of discharge. Please use your independent medical judgment in providing your response. THIS QUERY IS PART OF THE PERMANENT MEDICAL RECORD
== END 2023-12-07 15:24 | disposition home health service (06) | DRG 291 ==
LOC: HO.ED 13:07 → HO.EDOVER 19:14 → HO.S3 11-29 15:24
PROVIDERS: Internal Medicine; Physician Assistant; Physician Assistant Surgical; Admitting Provider Physician Assistant; Emergency Provider Emergency Medicine; PCP Internal Medicine; Visit Provider Student in an Organized Health Care Education/Training Program
PROC: (CPT 32551; principal; 2023-11-28 13:00)
DX: I13.2 Hypertensive heart and chronic kidney disease with heart failure and with stage 5 chronic kidney disease, or end stage renal disease (principal); I50.23 Acute on chronic systolic (congestive) heart failure; N18.6 End stage renal disease; J96.01 Acute respiratory failure with hypoxia; J18.9 Pneumonia, unspecified organism; J91.8 Pleural effusion in other conditions classified elsewhere; E11.22 Type 2 diabetes mellitus with diabetic chronic kidney disease; Z99.2 Dependence on renal dialysis; D63.1 Anemia in chronic kidney disease; E78.5 Hyperlipidemia, unspecified; G47.33 Obstructive sleep apnea (adult) (pediatric); R04.0 Epistaxis; I16.0 Hypertensive urgency; J45.20 Mild intermittent asthma, uncomplicated; Z20.822 Contact with and (suspected) exposure to COVID-19; Z87.891 Personal history of nicotine dependence; Z76.82 Awaiting organ transplant status; Z79.4 Long term (current) use of insulin; Z79.51 Long term (current) use of inhaled steroids; Z79.82 Long term (current) use of aspirin; Z79.899 Other long term (current) drug therapy
CPT/HCPCS: 0241U; 32551; 36415; 70450; 70551; 71045; 71250; 72148; 80048; 80053; 80202; 82140; 82945; 82947; 83605; 83615; 83735; 83880; 84100; 84145; 84157; 84484; 85025; 85027; 87040; 87070; 87073; 87205; 87350; 87640; 87641; 89051; 90999; 93005; 94640; 97163; 99285; A7041; C1729; C1769; J0360; J0692; J0885; J1170; J1644; J1920; J3370

== ENCOUNTER → 2023-11-28 07:34 | Outpatient (BNV) | payer MEDICARE, SELFPAY | PROVIDERS: Emergency Provider Emergency Medicine; Visit Provider Physician Assistant | DX: I16.0 Hypertensive urgency (principal); J90 Pleural effusion, not elsewhere classified; N18.6 End stage renal disease; Z99.2 Dependence on renal dialysis | CPT/HCPCS: 99223; 99232; 99233; 99239; G0180 ==

== ENCOUNTER → 2023-11-28 07:34 | Outpatient (BNV) | payer MEDICARE, SELFPAY | PROVIDERS: Emergency Provider Emergency Medicine; Visit Provider Physician Assistant Surgical | DX: J90 Pleural effusion, not elsewhere classified (principal) | CPT/HCPCS: 32557 ==

== ENCOUNTER → 2023-11-28 16:11 | Outpatient (BNV) | payer MEDICARE, SELFPAY | PROVIDERS: Admitting Provider Physician Assistant; Emergency Provider Emergency Medicine; Visit Provider Surgery | DX: J90 Pleural effusion, not elsewhere classified (principal) | CPT/HCPCS: 99223; 99232; 99233 ==

== ENCOUNTER → 2023-11-28 16:11 | Outpatient (BNV) | payer MEDICARE, SELFPAY | PROVIDERS: Admitting Provider Physician Assistant; Emergency Provider Emergency Medicine; PCP Internal Medicine; Visit Provider Psychiatry & Neurology Neurology | DX: F45.0 Somatization disorder (principal); N18.6 End stage renal disease | CPT/HCPCS: 99222 ==

== ENCOUNTER 2024-01-08 11:12 | Emergency (ER) | payer MEDICARE, SELFPAY ==
--- NOTE | ~2024-01-08 | XR_ITS ---
EXAMINATION: XR FOOT, RIGHT CLINICAL INFORMATION: First and third toe redness COMPARISON: None available. TECHNIQUE: AP, lateral, and oblique views of the right foot. FINDINGS: The bones and soft tissues are normal. No fracture. Alignment is anatomic. Joint spaces are maintained. Vascular calcifications seen in the soft tissues XR/XR foot RT 2V IMPRESSION: No acute abnormalities. Electronically signed by: Delvis Roldan MD 01/08/2024 02:24 PM IRINA
[2024-01-08 11:32] VITALS: BP 177/67; PULSE 67; RESP 16; TEMP 36.6; O2SAT 92; BMI 28.3
--- NOTE | 2024-01-08 11:34 | ED_ITS ---
HPI - General Adult General Chief complaint: General Medical Stated complaint: SUTURE REMOVAL Time Seen by Provider: 01/08/24 12:50 Source: RN notes reviewed and old records reviewed History of Present Illness ED Provider: Erika Whitaker PA-C HPI narrative: 68-year-old male with history of ESRD on HD MWF on kidney transplant list (Dr. Shea), insulin-dependent type 2 diabetes, hypertension, hyperlipidemia, ROBERT on CPAP, heart failure with reduced ejection fraction EF 35% and grade 2 diastolic dysfunction presenting to the ED today complaining of right foot pain, wound, swelling/ erythema s/p stubbing foot on sofa 5 days ago. Denies fever, chills, drainage from area. also requesting suture removal to right side of chest s/p tube placement. Patient had IR CT-guided chest tube placed during admission on 11/28/23. States was told sutures were supposed to dissolve on their own. Patient admits he had dialysis this morning at [facility] Related Data Home Medications ?Medication ?Instructions ?Recorded ?Confirmed albuterol sulfate 90 mcg/actuation 2 puff inhalation Q4H PRN 04/19/22 11/28/23 aerosol inhaler Shortness Of Breath allopurinol 100 mg tablet 100 mg PO MOWEFR@1600 04/19/22 11/28/23 atorvastatin 40 mg tablet 40 mg PO DAILY 04/19/22 11/28/23 doxazosin 4 mg tablet 4 mg PO BEDTIME 04/19/22 11/28/23 furosemide 80 mg tablet 80 mg PO DAILY 04/19/22 11/28/23 ipratropium 0.5 mg-albuterol 3 mg 3 ml inhalation Q4H PRN Wheezing 04/19/22 11/28/23 (2.5 mg base)/3 mL nebulization soln omeprazole 20 mg capsule,delayed 20 mg PO DAILY@0630 04/19/22 11/28/23 release sennosides 8.6 mg-docusate sodium 1 tab PO DAILY PRN Constipation 04/19/22 11/28/23 50 mg tablet (Senna-Time S) insulin glargine 100 unit/mL (3 22 unit subcut BEDTIME 04/10/23 11/28/23 mL) subcutaneous pen (Lantus Solostar U-100 Insulin) insulin lispro 100 unit/mL 1 sliding scale dose subcut TIDAC 04/10/23 11/28/23 subcutaneous pen aspirin 81 mg tablet,delayed 81 mg PO DAILY 06/20/23 11/28/23 release pregabalin 75 mg capsule 75 mg PO DAILY 06/20/23 11/28/23 fluticasone fur. 200 mcg-umeclid 1 ea inhalation DAILY 09/30/23 11/28/23 62.5 mcg-vilant 25 mcg inhalat.powder (Trelegy Ellipta) Previous Rx's ?Medication ?Instructions ?Recorded carvedilol 6.25 mg tablet 6.25 mg PO BID #60 tabs 10/03/23 losartan 25 mg tablet 25 mg PO DAILY #90 tabs 10/03/23 PleurX catheter drainage kits #10 ea 10/17/23 amoxicillin 500 mg-potassium 1 tab PO Q24H #5 tabs 12/07/23 clavulanate 125 mg tablet doxycycline monohydrate 100 mg 100 mg PO Q12H #10 caps 12/07/23 capsule fluticasone propionate 50 1 spray intranasal BID #16 grams 12/07/23 mcg/actuation nasal spray,suspension hydralazine 50 mg tablet 25 mg (1/2 x 50 mg) PO TID #90 tabs 12/07/23 cephalexin 500 mg capsule 500 mg PO Q12H 7 days #14 caps 01/08/24 doxycycline hyclate 100 mg tablet 100 mg PO BID 7 days #14 tabs 01/08/24 Allergies Allergy/AdvReac Type Severity Reaction Status Date / Time No Known Allergies Allergy Verified 01/08/24 11:33 Review of Systems 2 Review of Systems: Yes all other systems are reviewed and are negative Constitutional: Constitutional: Reports as per [facility] Past Medical History Attestation statement: The following information was validated with the patient. Source: old records reviewed Medical History HFrEF (heart failure with reduced ejection fraction) ESRD (end stage renal disease) Anemia ESRD (end stage renal disease) Chronic combined systolic and diastolic CHF (congestive heart failure) Chronic pericardial effusion Arthritis Asthma Restless leg syndrome Acute on chronic systolic and diastolic heart failure, NYHA class 3 Occlusive thrombus Pulmonary edema ROBERT (obstructive sleep apnea) Type 2 diabetes mellitus Hyperlipidemia Hypertension A-V fistula ESRD on dialysis Falling Surgical History Recurrent pleural effusion Pleural effusion on right (07/13/23) History of surgery H/O colonoscopy Family History Family History Father No problems noted. Mother No problems noted. Social History Social History Household Members: Family Household Members Other:: son Housing: Apartment Do you presently have visiting nurse or other home services: Yes Alcohol intake: never Comment: counts correct Patient Tobacco Use Status: Former Tobacco user Tobacco use type: Cigarette Second Hand Smoke Exposure: No Advance Directives: Yes Advance Directives on File: Yes Advance Directives Date on File: 10/04/23 service: No Physical Exam ED Vital Signs: Vital Signs - 24 hr 01/08/24 11:32 01/08/24 14:44 01/08/24 16:48 Temperature 97.9 F 97.7 F 97.7 F Pulse Rate 67 63 63 Respiratory Rate 16 16 16 Blood Pressure 177/67 H 172/61 H 172/61 H Pulse Oximetry 92 93 93 Oxygen Delivery Method Room Air Room Air Room Air BMI result Body Mass Index 28.3 Const General: cooperative, healthy appearing and no acute distress Orientation/consciousness: patient oriented x3 Limitations: no limitations HENMT Head: Yes normal to inspection and Yes atraumatic Ears: hearing grossly normal bilaterally General nose exam: Normal external nose present Face and sinus: Yes normal facial exam Eyes General: appearance normal, both eyes and all related structures EOM: EOMs intact bilaterally Neck Neck: Yes normal visual inspection and Yes no meningeal signs Chest Other: + 2 sutures noted to right chest wall at healing prior chest tube site/ keloids Resp Effort & Inspection: normal respiratory effort and no respiratory distress Cardio Rate: regular rate Neuro General: patient oriented x3, tone normal and no meningeal signs Cranial nerves: Yes CN's II-XII intact bilaterally Gait exam (Neuro): Normal gait present Extrem Other: Please refer to images above. Right 1st and 3rd toes with mild swelling, erythema/ ecchymosis. + small eschar/ blood blister noted to great toe. Mildly tender. No fluctuance / induration. + lymphangitis extending up proximal foot as depicted. Neurovascularly intact. Course Course Course Narrative: RME: 68 male history of diabetes presents to ED for right flank suture remove and also right 1st and 3rd toe redness and swelling mild black eschar for couple of days. Physical exam positive for right 3rd toe and frist toe redness and tendnress. X-ray labs ordered. -1357-- no leukocytosis. H/H around patient's baseline. ESR/ CRP mildly elevated. Potassium 3.2. - Chronic CKD, patient had dialysis this morning 1452--XR foot RT 2V IMPRESSION: No acute abnormalities. > Will discuss case with hospitalist for possible admission Patient will be admitted for further management. IV Rocephin/vancomycin ordered >>1606--hospitalist, ERIK Billingsley evaluated patient and do not feel he needs admission at this time. Will try outpatient p.o. antibiotics. This was discussed with patient with [place] Islander interpreting. Will discharge home with p.o. doxy/Keflex. Discussed at length needed follow-up in 2 days for re-evaluation whether here, PCP, or wound care. Patient verbalized understanding Results discussed with patient including worrisome signs and symptoms and strict return precautions, and when to return to the emergency department. They verbalized understanding and feel safe for discharge at this time. Procedures Procedure Narrative Procedure Narrative: Suture removal 2 sutures removed from right side/rib area No complication No dressing applied Medical Decision Making Medical Decision Making MDM Narrative: 68-year-old male with history of ESRD on HD MWF on kidney transplant list (Dr. Shea), insulin-dependent type 2 diabetes, hypertension, hyperlipidemia, ROBERT on CPAP, heart failure with reduced ejection fraction EF 35% and grade 2 diastolic dysfunction presenting to the ED today complaining of right foot pain, wound, swelling/ erythema s/p stubbing foot on sofa 5 days ago. Also requesting suture removal to right side of chest s/p tube placement. On exam vital signs stable, NAD, nontoxic appearing, physical exam as noted above. Sutures noted to right- sided chest from prior chest tube a few months ago. No appreciable surrounding cellulitis or abscess formation. Please refer to pictures of lower extremity, concern for fracture and cellulitis. Concern for early eschar vs blood blister. R/o osteomyelitis vs early necrosis Plan: Labs, x-ray, p.o. antibiotics, suture removal, wound care referral Please refer to course for remaining clinical decision making, interpretation of labs/imaging results, and discussions with consultants and/or family members. Differential Diagnosis Differential Diagnoses: The differential diagnosis associated with the presentation includes As above Admission/Observation Consideration of admission/observation: Escalation of care including admission/observation considered Lab Data MDM Lab Attestation statement: I reviewed the patient's lab results. 01/08/24 11:44 01/08/24 11:44 Labs: Lab Results 01/08/24 Range/Units 11:44 WBC 8.6 (4.8-10.8) X10*3/uL RBC 4.98 (4.60-5.80) X10*6/uL Hgb 11.4 L (14.0-18.0) g/dl Hct 37.2 L (42.0-52.0) % MCV 74.7 L (80.0-98.0) fL MCH 22.9 L (27.0-33.0) pg MCHC 30.6 L (31.0-36.0) g/dl RDW 15.8 (11.0-16.0) % Plt Count 167 (160-400) X10*3/uL MPV TNP Immature Gran % (Auto) 0.3 (0.0-0.4) % Neut % (Auto) 71.5 (45-73) % Lymph % (Auto) 13.1 L (20-40) % [place] % (Auto) 9.9 (2-11) % Eos % (Auto) 4.7 H (0-4) % Baso % (Auto) 0.5 (0-2) % Lymph # (Auto) 1.1 L (1.2-4.9) X10*3/uL [place] # (Auto) 0.9 (0.1-1.2) X10*3/uL Eos # (Auto) 0.4 (0.0-0.4) X10*3/uL Baso # (Auto) 0.0 (0.0-0.2) X10*3/uL Abs Immat Gran (auto) 0.03 (0.00-0.03) X10*3/uL Absolute Neuts (auto) 6.2 (2.0-8.3) x10*3/uL Absolute Nucleated RBC 0.020 H (0.0-0.012) X10*3/uL Nucleated RBC % (auto) 0.2 (0.0-0.2) /100WBC ESR 30 H (0-15) MM/HR Sodium 143 (135-145) mmol/L Potassium 3.2 L D (3.3-5.1) mmol/L Chloride 103 (96-108) mmol/L Carbon Dioxide 27 (22-29) mmol/L Anion Gap 16 (12-20) BUN 25 H (9-16) mg/dL Creatinine 6.65 H* (0.5-1.4) mg/dL Estim Creat Clear Calc 9.9 Estimated GFR 8 Random Glucose 254 H (60-115) mg/dL Calcium 8.7 (8.4-10.2) mg/dL Total Bilirubin 0.5 (0.0-1.0) mg/dL AST 19 (5-37) U/L ALT 18 (0-40) U/L Alkaline Phosphatase 146 H (39-117) U/L C-Reactive Protein 8.21 H (< or = 0.50) mg/dL Total Protein 7.4 (6.5-8.0) g/dL Albumin 3.9 (3.5-5.0) g/dL Independent Interpretation I performed an independent interpretation of an: Plain X-Ray Radiology Impression Discussion of test interpretation with radiology: I have reviewed the radiologist's reading. Independent Historian Clinical information obtained from an independent historian. History obtained from or confirmed by: Other External Record Review External record reviewed: Inpatient record, Office record, Outpatient record, Prior outpatient labs, Prior outpatient radiology, Primary care record and Outside ED record Tests considered The following testing was considered but not selected: As above Prescription Management I considered prescription management with: Pain Medication and Antibiotic Chronic Conditions Patient?s care impacted by: Other (ESRD on HD) Social Determinants Patient?s care significantly limited by Social Determinants of Health including: Other Social Determinant of Health Critical Care Time Critical Care Time Critical Care Time: Yes Total Critical Care Time: 40 Attestation: I have personally provided critical care time exclusive of time spent on separately billable procedures. Time includes review of lab data, radiology results, discussion with consultants, and monitoring for potential decompensation. Intervention performed as documented. Discharge Plan Discharge Clinical Impression: Diabetic foot infection, Eschar of foot Patient Disposition: Home, Self-Care Instructions: Acute Wounds (DC) Additional Instructions: Your blood work shows an elevation in inflammatory markers. You do not have a white blood cell count Your x-rays unremarkable Doxycycline and Keflex are antibiotics please take as prescribed until completion YOU NEED TO BE RE-EVALUATED IN 2 DAYS. WHETHER THAT IS BACK IN THE EMERGENCY DEPARTMENT, YOUR PRIMARY CARE DOCTOR, OR WOUND CARE If areas worsening, becomes increasingly red, increasingly black, has pus drainage or fever or malodor return to the ED immediately Prescriptions: New cephalexin 500 mg capsule 500 mg PO Q12H 7 Days Qty: 14 0RF doxycycline hyclate 100 mg tablet 100 mg PO BID 7 Days Qty: 14 0RF No Action (DME) PleurX catheter drainage kits 1000cc kits See Rx Instructions .Route .MEDSUPPLY Qty: 10 6RF Rx Instructions: As directed atorvastatin 40 mg tablet 40 mg PO DAILY ipratropium-albuterol 0.5 mg-3 mg(2.5 mg base)/3 mL solution for nebulization 3 ml INHALATION Q4H PRN (Reason: Wheezing) sennosides-docusate sodium [Senna-Time S] 8.6-50 mg tablet 1 tab PO DAILY PRN (Reason: Constipation) allopurinol 100 mg tablet 100 mg PO MOWEFR@1600 Rx Instructions: GIVE AFTER DIALYSIS furosemide 80 mg tablet 80 mg PO DAILY omeprazole 20 mg capsule,delayed release(DR/EC) 20 mg PO DAILY@0630 doxazosin 4 mg tablet 4 mg PO BEDTIME albuterol sulfate 90 mcg/actuation HFA aerosol inhaler 2 puff INHALATION Q4H PRN (Reason: Shortness Of Breath) Trelegy Ellipta 200-62.5-25 mcg blister with device 1 ea INHALATION DAILY carvedilol 6.25 mg Tablet 6.25 mg PO BID Qty: 60 0RF Protocol: Hold for SBP/HR < HOLD for SBP < : 90 HOLD for HR < : 60 losartan 25 mg Tablet 25 mg PO DAILY Qty: 90 0RF Protocol: Hold for SBP< HOLD for SBP < : 90 doxycycline monohydrate 100 mg Capsule 100 mg PO Q12H Qty: 10 0RF fluticasone propionate 50 mcg/actuation [place],Suspension 1 spray intranasal BID Qty: 16 0RF amoxicillin-pot clavulanate 500-125 mg tablet 1 tab PO Q24H Qty: 5 0RF hydralazine 50 mg tablet 25 mg PO TID Qty: 90 0RF insulin lispro 100 unit/mL insulin pen 1 sliding scale dose subcut TIDAC insulin glargine [Lantus Solostar U-100 Insulin] 100 unit/mL (3 mL) insulin pen 22 unit subcut BEDTIME aspirin 81 mg tablet,delayed release (DR/EC) 81 mg PO DAILY pregabalin 75 mg capsule 75 mg PO DAILY Referrals: [facility] [Outside] - 2 days Jade Lewis MD [Primary Care Provider] - 2 days Interventions: ED Discharge Assessment Last Done: 01/08/24 16:48 Discharge Date/Time: 01/08/24 16:48 Print Language: [place] Islander
[2024-01-08 11:49] LABS: MANUAL DIFF FLAG NO
[2024-01-08 11:53] LABS: Basophils Percent Auto 0.5 % (0-2); Eosinophils Absolute Auto 0.4 X10*3/uL (0.0-0.4); Eosinophils Percent Auto 4.7 % (0-4); Hematocrit 37.2 % (42.0-52.0); Hemoglobin 11.4 g/dl (14.0-18.0); Imm Gran Abs Auto 0.03 X10*3/uL (0.00-0.03); Imm Gran Pct Auto 0.3 % (0.0-0.4); Lymphocytes Absolute Auto 1.1 X10*3/uL (1.2-4.9); Lymphocytes Percent Auto 13.1 % (20-40); Mean Corpuscular HGB Conc 30.6 g/dl (31.0-36.0); Mean Corpuscular Hemoglobin 22.9 pg (27.0-33.0); Mean Corpuscular Volume 74.7 fL (80.0-98.0); Monocytes Absolute Auto 0.9 X10*3/uL (0.1-1.2); Monocytes Percent Auto 9.9 % (2-11); NRBC Pct Auto 0.2 /100WBC (0.0-0.2); Neutrophils Absolute Auto 6.2 x10*3/uL (2.0-8.3); Neutrophils Percent Auto 71.5 % (45-73); Platelet Count 167 X10*3/uL (160-400); Red Blood Count 4.98 X10*6/uL (4.60-5.80); Red Cell Distribution Width 15.8 % (11.0-16.0); White Blood Count 8.6 X10*3/uL (4.8-10.8)
[2024-01-08 12:25] LABS: Alanine Aminotransferase 18 U/L (0-40); Albumin Level 3.9 g/dL (3.5-5.0); Alkaline Phosphatase 146 U/L (39-117); Anion Gap 16 (12-20); Aspartate Amino Transferase 19 U/L (5-37); Bilirubin Total 0.5 mg/dL (0.0-1.0); Blood Urea Nitrogen 25 mg/dL (9-16); C Reactive Protein 8.21 mg/dL (< or = 0.50); Calcium 8.7 mg/dL (8.4-10.2); Carbon Dioxide 27 mmol/L (22-29); Chloride 103 mmol/L (96-108); Creatinine Clr Calc Pharmacy 9.9; Estimated Glomerular Filt Rate 8; Glucose Random 254 mg/dL (60-115); Potassium 3.2 mmol/L (3.3-5.1); Sodium 143 mmol/L (135-145); Total Protein 7.4 g/dL (6.5-8.0)
[2024-01-08 12:31] LABS: Erythrocyte Sedimentation Rate 30 MM/HR (0-15)
[2024-01-08 14:44] VITALS: BP 172/61; PULSE 63; RESP 16; TEMP 36.5; O2SAT 93
[2024-01-08 16:48] VITALS: BP 172/61; PULSE 63; RESP 16; TEMP 36.5; O2SAT 93
== END 2024-01-08 16:48 | disposition home or self-care (01) ==
PROVIDERS: Physician Assistant; Emergency Provider Student in an Organized Health Care Education/Training Program; PCP Internal Medicine
DX: E11.621 Type 2 diabetes mellitus with foot ulcer (principal); L08.9 Local infection of the skin and subcutaneous tissue, unspecified; M79.671 Pain in right foot; E11.22 Type 2 diabetes mellitus with diabetic chronic kidney disease; I13.2 Hypertensive heart and chronic kidney disease with heart failure and with stage 5 chronic kidney disease, or end stage renal disease; I50.20 Unspecified systolic (congestive) heart failure; N18.6 End stage renal disease; Z99.2 Dependence on renal dialysis; Z79.4 Long term (current) use of insulin; Z79.899 Other long term (current) drug therapy
CPT/HCPCS: 36415; 73620; 80053; 85025; 85652; 86140; 99283

== ENCOUNTER 2024-01-24 10:15 | Inpatient (IN) | payer MEDICARE, SELFPAY ==
[2024-01-24] VITALS (13 sets, daily range): BP systolic 122–217; BP diastolic 48–90; PULSE 65–86; RESP 14–20; TEMP 36.7–37.3; O2SAT 93–98; BMI 29.0; BMI 30.8
--- NOTE | ~2024-01-24 | CT_ITS ---
EXAMINATION: CT CHEST WITHOUT CONTRAST CLINICAL INFORMATION: Persistent loculated right-sided pleural effusion. COMPARISON: CT dated November 28, 2023 pre and post chest tube placement procedure. TECHNIQUE: Multidetector volumetric CT imaging of the chest was done. Axial MIP volume rendering provided. Sagittal and coronal reformatted images were obtained. This CT examination was performed using dose optimization techniques as appropriate, variously including the following: *Automated exposure control *Adjustment of mA and/or kV according to patient size (this includes techniques or standardized protocols for targeted exams where dose is matched to indication/reason for exam; i.e. extremities or head) *Use of iterative reconstruction technique DLP: 193 mGy-cm FINDINGS: PHOTOENGRAVING SKETCH MAKER: Multifocal patchy pulmonary groundglass, right upper lobe and to a lesser extent left upper lobe with a confluent attenuation abnormality and air bronchograms in the right lung base. A right-sided the mixed density abnormality in the pleura compartment measuring 6 1.8 cm in maximum thickness with heterogeneous likely isodensity. No pneumothorax. No bronchiectasis. No honeycombing. Lymphadenopathy, mediastinum. The heart is enlarged. Pericardial effusion, small volume. A central venous line catheter ends at the SVC/right atrium junction. Calcified plaques in the thoracic aorta wall its main branches and the coronary arteries. No aneurysm, thoracic aorta. Multilevel thoracic spondylosis. No acute fracture or listhesis. Focal blastic lesion in the inferior endplate of T11. Gynecomastia, bilaterally. CT/CT chest wo IV con IMPRESSION: Concerning multifocal pneumonia. Complex right-sided pleural effusion with the either blood products versus proteinaceous/purulent/empyema. Tumor infiltration cannot be excluded. Lymphadenopathy, mediastinum. Cardiomegaly. Coronary artery disease and atherosclerosis disease. Gynecomastia. Fleischner guidelines were followed. Electronically signed by: Douglas Lundberg MD 01/25/2024 09:36 AM EST
--- NOTE | ~2024-01-24 | US_ITS ---
EXAMINATION: US NONINVASIVE ASSESSMENT OF THE RIGHT LOWER EXTREMITY WITH ARTERIAL DUPLEX CLINICAL INFORMATION: Erythema and ecchymosis of right toes. COMPARISON: None available. TECHNIQUE: Duplex Doppler techniques with waveform analysis and measurement of velocities in the common femoral, profunda femoris, superficial femoral, popliteal and tibial arteries were performed. FINDINGS: NONINVASIVE ASSESSMENT OF THE ARTERIES OF BILATERAL LOWER EXTREMITIES: RIGHT LOWER EXTREMITY DUPLEX ULTRASOUND: Common femoral artery: 104.9 cm/s. Diastolic flow reversal: Yes Profunda femoris artery: 93.3 cm/s. Diastolic flow reversal: Yes Superficial femoral artery (proximal): 86.0 cm/s. Diastolic flow reversal: Yes Superficial femoral artery (mid): 92.7 cm/s. Diastolic flow reversal: Yes Superficial femoral artery (distal): 68.5 cm/s. Diastolic flow reversal: Minimal Popliteal artery: 82.4 cm/s Diastolic flow reversal: No Posterior tibial artery: 45.2 cm/s Diastolic flow reversal: No Posterior tibial artery: 45.2 cm/s Diastolic flow reversal: No Peroneal artery: 24.1 cm/s Diastolic flow reversal: No Anterior tibial artery: 30.0 cm/s Diastolic flow reversal: No Dorsalis pedis artery: 25.8 cm/s Diastolic flow reversal: No US/US arterial duplex LE RT IMPRESSION: There is hemodynamically significant right lower extremity infrapopliteal arterial disease. Electronically signed by: Héctor Zepeda MD 01/25/2024 12:23 AM [facility]
--- NOTE | ~2024-01-24 | XR_ITS ---
EXAMINATION: XR CHEST CLINICAL INFORMATION: sob COMPARISON: 12/04/2023 TECHNIQUE: 2 views of the chest were obtained. FINDINGS: Right internal jugular central line is unchanged in position, its tip at the cavoatrial junction. Stable moderate right pleural fluid or thickening and underlying volume loss with atelectasis in the right lower lung zone are stable. The left lung is clear. XR/XR chest 2V IMPRESSION: No significant change since 12/04/2023. Electronically signed by: Daren Palmer MD 01/24/2024 11:29 AM [facility]
--- NOTE | ~2024-01-24 | XR_ITS ---
EXAMINATION: XR FOOT, RIGHT CLINICAL INFORMATION: worsening pain, concern for osteo COMPARISON: January 08, 2024 TECHNIQUE: AP, lateral, and oblique views of the right foot. FINDINGS: No osteolysis. No acute cortical disruption or malalignment. Osteopenia versus osteoporosis. Vascular complications. No subcutaneous emphysema. XR/XR foot RT min 3V IMPRESSION: Atherosclerosis disease, peripheral. No acute fracture or dislocation or osteomyelitis based upon x-ray Electronically signed by: Douglas Lundberg MD 01/24/2024 12:24 PM [facility]
[2024-01-24 10:53] LABS: MANUAL DIFF FLAG NO
[2024-01-24 11:03] LABS: Basophils Percent Auto 0.3 % (0-2); Eosinophils Absolute Auto 0.2 X10*3/uL (0.0-0.4); Eosinophils Percent Auto 2.4 % (0-4); Hematocrit 33.2 % (42.0-52.0); Hemoglobin 10.4 g/dl (14.0-18.0); Imm Gran Abs Auto 0.03 X10*3/uL (0.00-0.03); Imm Gran Pct Auto 0.3 % (0.0-0.4); Lymphocytes Absolute Auto 0.8 X10*3/uL (1.2-4.9); Lymphocytes Percent Auto 8.4 % (20-40); Mean Corpuscular HGB Conc 31.3 g/dl (31.0-36.0); Mean Corpuscular Hemoglobin 23.2 pg (27.0-33.0); Mean Corpuscular Volume 74.1 fL (80.0-98.0); Monocytes Absolute Auto 0.8 X10*3/uL (0.1-1.2); Monocytes Percent Auto 8.2 % (2-11); Neutrophils Absolute Auto 7.4 x10*3/uL (2.0-8.3); Neutrophils Percent Auto 80.4 % (45-73); Platelet Count 145 X10*3/uL (160-400); Red Blood Count 4.48 X10*6/uL (4.60-5.80); Red Cell Distribution Width 15.4 % (11.0-16.0); White Blood Count 9.2 X10*3/uL (4.8-10.8)
--- NOTE | 2024-01-24 11:03 | PC.NURSE ---
Pt comes to ED today following dialysis appt (full treatment received.) Pt reports two complaints: 1. R foot pain. Dropped sofa on R foot 2 weeks ago. Seen here and abx prescribed. Reports pain is increasing worse today after is was starting to get better. R great and 3rd toe with ecchymosis and open wounds. Scant bleeding noted to sheet. 2. SOB Pt reports Hx of R pleural effusion w/ drainage. Pt reports increased feeling of SOB and is concerned for fluid accumulation. Pt reports using supplemental O2--Pt is not on O2 now with O2 Sat 93% RA
[2024-01-24 11:14] LABS: B Type Natriuretic Peptide 2685 pg/mL (<100)
[2024-01-24 11:19] LABS: Alanine Aminotransferase 23 U/L (0-40); Albumin Level 3.9 g/dL (3.5-5.0); Alkaline Phosphatase 139 U/L (39-117); Anion Gap 14 (12-20); Aspartate Amino Transferase 23 U/L (5-37); Bilirubin Total 0.8 mg/dL (0.0-1.0); Blood Urea Nitrogen 20 mg/dL (9-16); Calcium 7.9 mg/dL (8.4-10.2); Carbon Dioxide 29 mmol/L (22-29); Chloride 101 mmol/L (96-108); Creatinine Clr Calc Pharmacy 13.8; Estimated Glomerular Filt Rate 12; Glucose Random 153 mg/dL (60-115); Potassium 3.2 mmol/L (3.3-5.1); Sodium 141 mmol/L (135-145); Total Protein 7.2 g/dL (6.5-8.0)
--- NOTE | 2024-01-24 11:19 | ED_ITS ---
HPI - General Adult General Chief complaint: Dyspnea Stated complaint: cough-r foot pain Time Seen by Provider: 01/24/24 11:19 Source: patient, family (patient's son) and translator interpreter (all interactions with this patient were facilitated with an [facility] sign language interpreter) Mode of arrival: ambulatory Limitations: language barrier (all interactions with this patient were facilitated with an [facility] sign language interpreter) History of Present Illness ED Provider: Arleen Viera PA-C HPI narrative: Patient is a 68 year old assigned male at with a history of ESRD on HD MWF on kidney transplant list (Dr. Shea), insulin-dependent type 2 diabetes, hypertension, hyperlipidemia, ROBERT on CPAP, heart failure with reduced ejection fraction EF 35% on 2L NC at baseline, and grade 2 diastolic dysfunction, presenting to the emergency department today with increased SOB and worsening right foot pain. Patient states that he was seen a few months ago and had to have a chest tube placed to drain the fluid from around his right lung. Patient states that he has had that done a few times and it has helped but he hasn't had it done in a while. Patient states that he has been previously seen of his right foot pain and just finished antibiotics for it but the pain continues to get worse. Patient denies any dizziness, lightheadedness, abdominal pain, nausea, vomiting, fever, chills, blurry vision, double vision, loss of vision, chest pain, back pain, night sweats, pain with urination, increased urinary frequency, increased urinary urgency, blood in his urine or stool, syncope or a near syncopal episode, recent trauma or falls, bowel incontinence, bladder incontinence, or any other complaints at this time. Relieving factors: none Exacerbating factors: none Associated symptoms: shortness of breath Related Data Home Medications ?Medication ?Instructions ?Recorded ?Confirmed albuterol sulfate 90 mcg/actuation 2 puff inhalation Q4H PRN 04/19/22 01/24/24 aerosol inhaler Shortness Of Breath allopurinol 100 mg tablet 100 mg PO MOWEFR@1600 04/19/22 01/24/24 atorvastatin 40 mg tablet 40 mg PO DAILY 04/19/22 01/24/24 doxazosin 4 mg tablet 4 mg PO BEDTIME 04/19/22 01/24/24 furosemide 80 mg tablet 80 mg PO DAILY 04/19/22 01/24/24 ipratropium 0.5 mg-albuterol 3 mg 3 ml inhalation Q4H PRN Wheezing 04/19/22 11/28/23 (2.5 mg base)/3 mL nebulization soln omeprazole 20 mg capsule,delayed 20 mg PO DAILY@0630 04/19/22 01/24/24 release sennosides 8.6 mg-docusate sodium 1 tab PO DAILY PRN Constipation 04/19/22 11/28/23 50 mg tablet (Senna-Time S) insulin glargine 100 unit/mL (3 22 unit subcut BEDTIME 04/10/23 01/24/24 mL) subcutaneous pen (Lantus Solostar U-100 Insulin) insulin lispro 100 unit/mL 1 sliding scale dose subcut TIDAC 04/10/23 01/24/24 subcutaneous pen aspirin 81 mg tablet,delayed 81 mg PO DAILY 06/20/23 01/24/24 release pregabalin 75 mg capsule 75 mg PO DAILY 06/20/23 01/24/24 fluticasone fur. 200 mcg-umeclid 1 ea inhalation DAILY 01/24/24 01/24/24 62.5 mcg-vilant 25 mcg inhalat.powder (Trelegy Ellipta) sucroferric oxyhydroxide 500 mg 500 mg PO TID 01/24/24 01/24/24 chewable tablet (Velphoro) Previous Rx's ?Medication ?Instructions ?Recorded carvedilol 6.25 mg tablet 6.25 mg PO BID #60 tabs 10/03/23 losartan 25 mg tablet 25 mg PO DAILY #90 tabs 10/03/23 PleurX catheter drainage kits #10 ea 10/17/23 fluticasone propionate 50 1 spray intranasal BID #16 grams 12/07/23 mcg/actuation nasal spray,suspension hydralazine 50 mg tablet 25 mg (1/2 x 50 mg) PO TID #90 tabs 12/07/23 Allergies Allergy/AdvReac Type Severity Reaction Status Date / Time No Known Allergies Allergy Verified 01/24/24 10:34 Review of Systems 2 Constitutional: Constitutional: Reports no additional constitutional complaints, Denies chills, Denies fever(s) and Denies night sweats Eyes: Eyes: Reports no additional eye complaints, Denies blurry vision, Denies change in vision, Denies diplopia, Denies eye discharge, Denies loss of vision and Denies eye pain ENT: Denies dizziness Cardiovascular: Cardiovascular: Reports no additional cardiovascular complaints, Denies chest pain, Denies lightheadedness, Denies Loss of Consciousness, Reports dyspnea and Reports dyspnea on exertion Respiratory: Respiratory: Reports no additional respiratory complaints, Reports dyspnea and Reports dyspnea on exertion Gastrointestinal: Gastrointestinal: Reports no additional gastrointestinal complaints, Denies abdominal pain, Denies melena, Denies hematochezia, Denies change in bowel habits and Denies change in stool character Genitourinary: Genitourinary: Reports no additional male genitourinary complaints, Denies hematuria, Denies oliguria, Denies difficulty urinating, Denies dysuria, Denies urinary frequency, Denies urinary hesitancy, Denies urinary incontinence and Denies urinary urgency Musculoskeletal: Musculoskeletal: Reports no additional musculoskeletal complaints, Denies numbness and Denies tingling Comments: right foot pain Neurologic: Denies dizziness, Denies loss of vision, Denies numbness and Denies tingling Psychiatric: Psychiatric: Reports no additional psychiatric complaints Endocrine: Endocrine: Reports no additional endocrine complaints Hematologic/Lymphatic: Hematologic/Lymphatic: Reports no additional hematologic/lymphatic complaints Allergic/Immunologic: Allergic/Immunologic: Reports no additional allergic/immunologic complaints [facility] Past Medical History Attestation statement: The following information was validated with the patient. (all information validated with the patient's son) Source: old records reviewed, obtained from family (patient's son provided additional history and confirmed the history provided by the patient) and nursing notes reviewed Medical History HFrEF (heart failure with reduced ejection fraction) ESRD (end stage renal disease) Anemia ESRD (end stage renal disease) Chronic combined systolic and diastolic CHF (congestive heart failure) Chronic pericardial effusion Arthritis Asthma Restless leg syndrome Acute on chronic systolic and diastolic heart failure, NYHA class 3 Occlusive thrombus Pulmonary edema ROBERT (obstructive sleep apnea) Type 2 diabetes mellitus Hyperlipidemia Hypertension A-V fistula ESRD on dialysis Falling Surgical History Recurrent pleural effusion Pleural effusion on right (07/13/23) History of surgery H/O colonoscopy Family History Family History Father No problems noted. Mother No problems noted. Social History Social History Household Members: Family Household Members Other:: son Housing: Apartment Do you presently have visiting nurse or other home services: Yes Alcohol intake: never Comment: counts correct Patient Tobacco Use Status: Former Tobacco user Tobacco use type: Cigarette Smoked in Last 30 Days: No Second Hand Smoke Exposure: No Use of substances other than those prescribed or required for medical reasons: No Advance Directives: Yes Advance Directives on File: Yes Advance Directives Date on File: 10/04/23 service: No Physical Exam ED Vital Signs: Vital Signs - 24 hr 01/24/24 10:31 01/24/24 11:00 01/24/24 12:08 Temperature 98.1 F 98.2 F 98.1 F Pulse Rate 70 71 66 Respiratory Rate 18 16 17 Blood Pressure 122/48 L 150/56 H 206/72 H Pulse Oximetry 95 93 94 Oxygen Delivery Method Room Air Room Air Nasal Cannula Oxygen Flow Rate 2 01/24/24 12:30 01/24/24 12:53 Temperature Pulse Rate 65 Respiratory Rate 14 Blood Pressure 213/78 H 180/75 H Pulse Oximetry 97 Oxygen Delivery Method Nasal Cannula Oxygen Flow Rate 2 BMI result Body Mass Index 29.0 Const General: cooperative, no acute distress, alert and awake Nutritional Appearance: well nourished Orientation/consciousness: patient oriented x3 Limitations: no limitations HENMT Head: Yes normal to inspection and Yes atraumatic Ears: hearing grossly normal bilaterally and external ears normal General nose exam: Normal external nose present, no nasal discharge noted and no epistaxis Face and sinus: Yes normal facial exam, No abrasion and No laceration Mouth: Normal oral and palatal mucosa present, no drooling and no muffled voice Eyes General: appearance normal, both eyes and all related structures Periorbital: periorbital findings normal Eyelids: Yes eyelids normal Conjunctivae: conjunctivae normal Pupils: Equal, round and reactive pupils present EOM: EOMs intact bilaterally Neck Neck: Yes normal visual inspection, Yes full ROM and Yes no lymphadenopathy Chest Chest palpation & inspection: normal inspection of the chest Resp Effort & Inspection: normal respiratory effort and able to speak in complete sentences Auscultation: diminished lung sounds on the right in the lower lung thomas GI Inspection: Yes normal to inspection Neuro General: patient oriented x3 and moves all extremities Cranial nerves: Yes Equal, round and reactive pupils present Cognition (Neuro): normal cognition Extrem Other: General: Yes full ROM and Yes capillary refill normal Psych Appearance: grossly normal Mental Status: mental status grossly normal Affect: normal affect Attitude: cooperative Thought process: Normal thought process present Thought content: Normal thought content present Insight: Good insight present (Psych) Medications Administered Generic Name Dose Route Start Last Admin Trade Name Freq PRN Reason Stop Dose Admin Heparin Sodium (Porcine) 5,000 unit 01/24/24 14:00 01/24/24 14:31 Heparin Sodium,Porcine 5,000 Unit/Ml Vial SUBCUT 5,000 unit Q12H NASREEN Administration Vancomycin HCl 2,000 mg in 500 mls @ 250 mls/hr 01/24/24 13:00 01/24/24 14:33 Vancomycin/Ns IV 01/24/24 14:59 250 mls/hr ONCE ONE Administration Discontinued Medications Generic Name Dose Route Start Last Admin Trade Name Freq PRN Reason Stop Dose Admin Hydralazine HCl 10 mg 01/24/24 12:23 01/24/24 12:30 Hydralazine Hcl 20 Mg/Ml Vial IVPUSH 01/24/24 12:24 10 mg ONCE ONE Administration Protocol Piperacillin Sod/Tazobactam 50 mls @ 100 mls/hr 01/24/24 12:14 01/24/24 13:57 Sod 3.375 gm/ Sodium Chloride IV 01/24/24 12:43 100 mls/hr ONCE ONE Administration Oxycodone HCl 10 mg 01/24/24 11:42 01/24/24 11:48 Oxycodone Hcl Immed Release 5 Mg Tablet PO 01/24/24 11:43 10 mg ONCE ONE Administration Potassium Chloride 40 meq 01/24/24 13:48 01/24/24 14:33 Potassium Chloride Er 20 Meq Tab.Er.Prt PO 01/24/24 13:49 40 meq ONCE ONE Administration Medical Decision Making Medical Decision Making MDM Narrative: Patient is a 68 year old assigned male at with a history of ESRD on HD MWF on kidney transplant list (Dr. Shea), insulin-dependent type 2 diabetes, hypertension, hyperlipidemia, ROBERT on CPAP, heart failure with reduced ejection fraction EF 35% on 2L NC at baseline, and grade 2 diastolic dysfunction, presenting to the emergency department today with increased SOB and worsening right foot pain. Patient's physical exam was as noted in the physical exam portion of this note. Patient's blood work showed K+ 3.2, BUN 20, CR 4.84, BNP 2685, WNL WBC but does have left shift. Chest x-ray showed recurrence of right pleural effusion. Right foot x-ray got read as negative but when I compare them side by side - it looks like some blair erosion to the great and 3rd toes have started which is consistent with where his wounds are and concerning for osteomyelitis. Patient's clincal presentation is not consistent with sepsis (@1300). I spoke to the hospitalist team who agreed to admission. I explained my physical exam findings as well as all test results to the patient and the patient's son. I answered all questions asked by the patient and the patient's son. Patient received PO Oxycodone for his foot pain, IV vanc + zosyn for possible osteomyelitis, and hydralazine for brief hypertension which, upon re- evaluation, he stated it helped his symptoms some. Patient and the patient's son verbalized agreement and understanding with this treatment plan and admission. Differential Diagnosis Differential Diagnoses: The differential diagnosis associated with the presentation includes Right foot osteomyelitis Pleural effusion Shortness of breath CHF exacerbation Admission/Observation Consideration of admission/observation: Escalation of care including admission/observation considered Patient admitted. Consult Healthcare Provider Management of the patient was discussed with: Hospitalist (agreed to admission as noted in the MDM Rationale portion of this note.) Lab Data [facility] Lab Attestation statement: I reviewed the patient's lab results. My interpretation of these results are in the MDM Rationale portion of this note. 01/24/24 10:45 01/24/24 10:45 Labs: Lab Results 01/24/24 01/24/24 Range/Units 10:45 13:07 WBC 9.2 (4.8-10.8) X10*3/uL RBC 4.48 L (4.60-5.80) X10*6/uL Hgb 10.4 L (14.0-18.0) g/dl Hct 33.2 L (42.0-52.0) % MCV 74.1 L (80.0-98.0) fL MCH 23.2 L (27.0-33.0) pg MCHC 31.3 (31.0-36.0) g/dl RDW 15.4 (11.0-16.0) % Plt Count 145 L (160-400) X10*3/uL MPV Not Reportable Immature Gran % (Auto) 0.3 (0.0-0.4) % Neut % (Auto) 80.4 H (45-73) % Lymph % (Auto) 8.4 L (20-40) % Robertson % (Auto) 8.2 (2-11) % Eos % (Auto) 2.4 (0-4) % Baso % (Auto) 0.3 (0-2) % Lymph # (Auto) 0.8 L (1.2-4.9) X10*3/uL Robertson # (Auto) 0.8 (0.1-1.2) X10*3/uL Eos # (Auto) 0.2 (0.0-0.4) X10*3/uL Baso # (Auto) 0.0 (0.0-0.2) X10*3/uL Abs Immat Gran (auto) 0.03 (0.00-0.03) X10*3/uL Absolute Neuts (auto) 7.4 (2.0-8.3) x10*3/uL Absolute Nucleated RBC 0.000 (0.0-0.012) X10*3/uL Nucleated RBC % (auto) 0.0 (0.0-0.2) /100WBC Sodium 141 (135-145) mmol/L Potassium 3.2 L (3.3-5.1) mmol/L Chloride 101 (96-108) mmol/L Carbon Dioxide 29 (22-29) mmol/L Anion Gap 14 (12-20) BUN 20 H (9-16) mg/dL Creatinine 4.84 H* (0.5-1.4) mg/dL Estim Creat Clear Calc 13.8 Estimated GFR 12 Random Glucose 153 H (60-115) mg/dL Lactic Acid 1.2 (0.5-2.0) mmol/L Calcium 7.9 L D (8.4-10.2) mg/dL Total Bilirubin 0.8 (0.0-1.0) mg/dL AST 23 (5-37) U/L ALT 23 (0-40) U/L Alkaline Phosphatase 139 H (39-117) U/L B-Natriuretic Peptide 2685 H (<100) pg/mL Total Protein 7.2 (6.5-8.0) g/dL Albumin 3.9 (3.5-5.0) g/dL Influenza Type A (PCR) NEGATIVE (Negative) Influenza Type B (PCR) NEGATIVE (Negative) RSV RNA Qual (PCR) NEGATIVE (Negative) SARS-CoV-2 RNA (RT-PCR) NEGATIVE (Negative) Independent Interpretation I performed an independent interpretation of an: Plain X-Ray Interpretation: My interpretation is in agreement with the radiologist's impression of these imaging studies with the exception of the right foot x-ray which I further expanded on in the MDM Rationale portion of this note. L EXAMINATION: XR CHEST CLINICAL INFORMATION: sob COMPARISON: 12/04/2023 TECHNIQUE: 2 views of the chest were obtained. FINDINGS: Right internal jugular central line is unchanged in position, its tip at the cavoatrial junction. Stable moderate right pleural fluid or thickening and underlying volume loss with atelectasis in the right lower lung zone are stable. The left lung is clear. XR/XR chest 2V IMPRESSION: No significant change since 12/04/2023. Electronically signed by: Daren Palmer MD 01/24/2024 11:29 AM [facility] Dictated By: Daren Palmer MD Signed By: Electronically signed by Daren Palmer MD 01/24/24 1129 EXAMINATION: XR FOOT, RIGHT CLINICAL INFORMATION: worsening pain, concern for osteo COMPARISON: January 08, 2024 TECHNIQUE: AP, lateral, and oblique views of the right foot. FINDINGS: No osteolysis. No acute cortical disruption or malalignment. Osteopenia versus osteoporosis. Vascular complications. No subcutaneous emphysema. XR/XR foot RT min 3V IMPRESSION: Atherosclerosis disease, peripheral. No acute fracture or dislocation or osteomyelitis based upon x-ray Electronically signed by: Douglas Lundberg MD 01/24/2024 12:24 PM [facility] Dictated By: Douglas Mosley MD Signed By: Electronically signed by Douglas Bustos MD 01/24/24 1224 Radiology Impression Discussion of test interpretation with radiology: I have reviewed the radiologist's reading. Independent Historian Clinical information obtained from an independent historian. History obtained from or confirmed by: Other (patient's son provided additional history and confirmed the history provided by the patient.) Critical Care Time Critical Care Time Critical Care Time: Yes Total Critical Care Time: 54 Attestation: I spent 54 minutes of Critical Care Time with this patient. This does not include time spent on separately reported billable procedures. Discharge Plan Discharge Clinical Impression: Osteomyelitis, Acute hypokalemia, Pleural effusion Patient Disposition: Admitted As Inpatient
[2024-01-24 11:30] LABS: Influenza A PCR NEGATIVE (Negative); Influenza B PCR NEGATIVE (Negative); Resp Syncy Virus RNA Qual PCR NEGATIVE (Negative); SARS COV2 PCR INHOUSE NEGATIVE (Negative)
[2024-01-24] MEDS: oxyCODONE HCl Immed Release 5 MG TABLET 10 MG PO (11:48)
[2024-01-24] MEDS: hydrALAZINE HCl 20 MG/ML VIAL 10 MG IVPUSH (12:30)
[2024-01-24 13:28] LABS: Lactic Acid 1.2 mmol/L (0.5-2.0)
[2024-01-24] MEDS: Piperacillin Sodium/Tazobactam 3.375 GM in 0.9 % Sodium Chloride 50 ML IV (13:57)
--- NOTE | 2024-01-24 14:07 | PM.IMHP ---
History of Present Illness Date of Service: 01/24/24 Attending physician on admission: Jules Reddy Chief Complaint: SOB with exertion and right foot pain Patient is a 68-year-old [place]-speaking male with a past medical history significant for ESRD on HD MWF on transplant list (Dr. Shea) last went today, T2DM on insulin, HTN, HLD, ROBERT on CPAP, GERD, grade 3 diastolic heart failure (EF 35%), on O2 2 L via NC at home, who presented to the ED today with worsening shortness of breath with exertion and continued right foot pain, worsening. He was recently seen on 01/07 for right foot pain and possible cellulitis versus osteomyelitis, x-ray was negative and he was sent home with doxycycline and Keflex. He reports he completed the treatment however his pain has persisted and worsened. He now rates the pain a 10/10 constantly. His shortness of breath has been worsening over the past week. He denies any cough or production. He also denies lower extremity edema, abdominal pain or chest pain. No recent sick contacts. No fever, chills, nausea or vomiting. Has a history of chronic right lower lung pleural effusion for which she had a chest tube placed on 11/28/2023. Recently discharged from the hospital on 12/07/2023 for recurrent right pleural effusion, pneumonia, accelerated hypertension and leg weakness. Review of Systems Constitutional: Constitutional: Denies body ache(s), Denies chills, Denies fatigue, Denies fever(s) and Denies headache(s) Eyes: Eyes: Denies change in vision ENT: Denies headache(s), Denies nasal congestion, Denies nasal discharge, Denies nasal obstruction and Denies sore throat Cardiovascular: Cardiovascular: Denies chest pain, Denies syncope, Denies rapid heart rate, Denies leg edema and Reports dyspnea on exertion Respiratory: Respiratory: Denies chest congestion, Denies cough, Reports dyspnea on exertion and Denies wheezing Gastrointestinal: Gastrointestinal: Denies constipation, Denies diarrhea, Denies nausea and Denies vomiting Genitourinary: Genitourinary: Denies dysuria Musculoskeletal: Musculoskeletal: Reports as per HPI Integumentary/Breasts: Skin/Breast: Reports as per HPI Neurologic: Denies confusion, Denies syncope and Denies headache(s) Psychiatric: Psychiatric: Denies confusion Endocrine: Endocrine: Denies fatigue Allergic/Immunologic: Allergic/Immunologic: Denies wheezing [facility] Medical History (Updated 01/24/24 @ 15:52 by Alisson Luna PA-C) Chronic combined systolic and diastolic CHF (congestive heart failure) ESRD on dialysis Acute on chronic systolic and diastolic heart failure, NYHA class 3 HFrEF (heart failure with reduced ejection fraction) ESRD (end stage renal disease) Anemia ESRD (end stage renal disease) Chronic pericardial effusion Arthritis Asthma Restless leg syndrome Occlusive thrombus Pulmonary edema ROBERT (obstructive sleep apnea) Type 2 diabetes mellitus Hyperlipidemia Hypertension A-V fistula Falling Family History Father No problems noted. Mother No problems noted. Surgical History Recurrent pleural effusion Pleural effusion on right (07/13/23) History of surgery H/O colonoscopy Social History Household Members: Family Household Members Other:: son Housing: Apartment Do you presently have visiting nurse or other home services: Yes Alcohol intake: never Comment: counts correct Patient Tobacco Use Status: Former Tobacco user Tobacco use type: Cigarette Smoked in Last 30 Days: No Second Hand Smoke Exposure: No Use of substances other than those prescribed or required for medical reasons: No Advance Directives: Yes Advance Directives on File: Yes Advance Directives Date on File: 10/04/23 service: No Meds Allergies Allergy/AdvReac Type Severity Reaction Status Date / Time No Known Allergies Allergy Verified 01/24/24 10:34 Active Medications: Current Medications Acetaminophen (Acetaminophen 325 Mg Tablet) 650 mg PO Q6H PRN PRN Reason: Pain, Mild (Pain Scale 1-3), fever or headache Calcium Carbonate (Calcium Carbonate 750 Mg Tab.Chew) 750 mg PO Q4H PRN PRN Reason: Heartburn Glucose (Glucose Gel 15 Gm Gel..Gram.) 15 gm PO Q15M PRN; Protocol PRN Reason: per Hypoglycemia Standing Ord. Heparin Sodium (Porcine) (Heparin Sodium,Porcine 5,000 Unit/Ml Vial) 5,000 unit SUBCUT Q12H NASREEN Hydromorphone HCl (Hydromorphone Hcl 0.5 Mg/0.5 Ml Syringe) 0.5 mg IVPUSH Q4H PRN; Protocol PRN Reason: Pain, Severe (Pain Scale 7-10) Vancomycin HCl (Vancomycin/Ns) 2,000 mg in 500 mls @ 250 mls/hr IV ONCE ONE Stop: 01/24/24 14:59 Dextrose (D10) 250 mls @ 750 mls/hr IV Q15M PRN; Protocol PRN Reason: per Hypoglycemia Standing Ord. Insulin Glargine (Insulin Glargine,Hum.Rec.Anlog 100 Unit/Ml 10 Ml Vial) 22 unit SUBCUT BEDTIME NASREEN Insulin Human Lispro (Insulin Lispro 100 Unit/Ml 3 Ml Vial) 0 unit SUBCUT QIDACHS [facility]; Protocol Magnesium Hydroxide (Milk Of Magnesia 30 Ml Oral.Susp) 30 ml PO DAILY PRN PRN Reason: Constipation Melatonin (Melatonin 3 Mg Tablet) 6 mg PO BEDTIME PRN PRN Reason: Insomnia Ondansetron HCl (Ondansetron Hcl 4 Mg/2 Ml Vial) 4 mg IVPUSH Q8H PRN PRN Reason: Nausea and Vomiting Oxycodone HCl (Oxycodone Hcl Immed Release 5 Mg Tablet) 5 mg PO Q6H PRN PRN Reason: Pain, Moderate(Pain Scale 4-6) Sodium Chloride (0.9 % Sodium Chloride Flush 3 Ml Syringe) 3 ml IVFLUSH QSHIST. [facility] Home Medications ?Medication ?Instructions ?Recorded ?Confirmed ?Last Taken ?Type albuterol sulfate 90 mcg/actuation 2 puff inhalation Q4H PRN 04/19/22 01/24/24 Unknown History aerosol inhaler Shortness Of Breath allopurinol 100 mg tablet 100 mg PO MOWEFR@1600 04/19/22 01/24/24 11/27/23 History atorvastatin 40 mg tablet 40 mg PO DAILY 04/19/22 01/24/24 11/27/23 History doxazosin 4 mg tablet 4 mg PO BEDTIME 04/19/22 01/24/24 11/27/23 History furosemide 80 mg tablet 80 mg PO DAILY 04/19/22 01/24/24 11/27/23 History ipratropium 0.5 mg-albuterol 3 mg 3 ml inhalation QID PRN Wheezing 04/19/22 01/24/24 Unknown History (2.5 mg base)/3 mL nebulization soln omeprazole 20 mg capsule,delayed 20 mg PO DAILY@0630 04/19/22 01/24/24 11/27/23 History release sennosides 8.6 mg-docusate sodium 1 tab PO DAILY PRN Constipation 04/19/22 11/28/23 04/19/22 History 50 mg tablet (Senna-Time S) insulin glargine 100 unit/mL (3 22 unit subcut BEDTIME 04/10/23 01/24/24 11/27/23 History mL) subcutaneous pen (Lantus Solostar U-100 Insulin) insulin lispro 100 unit/mL 1 sliding scale dose subcut TIDAC 04/10/23 01/24/24 11/27/23 History subcutaneous pen aspirin 81 mg tablet,delayed 81 mg PO DAILY 06/20/23 11/28/23 11/27/23 History release pregabalin 75 mg capsule 75 mg PO DAILY 06/20/23 01/24/24 11/27/23 History fluticasone fur. 200 mcg-umeclid 1 ea inhalation DAILY 01/24/24 01/24/24 Unknown History 62.5 mcg-vilant 25 mcg inhalat.powder (Trelegy Ellipta) sucroferric oxyhydroxide 500 mg 500 mg PO TID 01/24/24 01/24/24 Unknown History chewable tablet (Velphoro) Physical Exam Vital Signs and Narrative: Vital Signs: Last Vital Signs Temp 98.1 F 01/24/24 12:08 Pulse 65 01/24/24 12:53 Resp 14 01/24/24 12:53 BP 180/75 H 01/24/24 12:53 Pulse Ox 97 01/24/24 12:53 O2 Del Method Nasal Cannula 01/24/24 12:53 O2 Flow Rate 2 01/24/24 12:53 BMI result Body Mass Index 29.0 General: AOx3, no acute distress Resp: diminshed RLL with fine crackles, no wheezing CVS: S1, S2, RRR GI: +BS, NT, no distention Skin: Warm, dry. mild erthema and ecchymosis on first 3 toes, pain with light touch. eschar on great toe and 3rd toe. sensation and motor intact. pedal pulses/ant tib pulses 1+ bilaterally. Extremities: No LE pitting edema. see skin exam. Psych: Appropriate affect Const: General: No confusion Orientation/consciousness: No confusion Neuro: General: No confusion Results Labs 01/24/24 10:45 01/24/24 10:45 Labs: Laboratory Results - last 24 hr 01/24/24 01/24/24 10:45 13:07 MCV 74.1 L MCH 23.2 L MCHC 31.3 RDW 15.4 Plt Count 145 L MPV Not Reportable Immature Gran % (Auto) 0.3 Neut % (Auto) 80.4 H Lymph % (Auto) 8.4 L [place] % (Auto) 8.2 Eos % (Auto) 2.4 Baso % (Auto) 0.3 Lymph # (Auto) 0.8 L [place] # (Auto) 0.8 Eos # (Auto) 0.2 Baso # (Auto) 0.0 Abs Immat Gran (auto) 0.03 Absolute Neuts (auto) 7.4 Absolute Nucleated RBC 0.000 Nucleated RBC % (auto) 0.0 Anion Gap 14 Estim Creat Clear Calc 13.8 Estimated GFR 12 Random Glucose 153 H Lactic Acid 1.2 Calcium 7.9 L D Total Bilirubin 0.8 AST 23 ALT 23 Alkaline Phosphatase 139 H B-Natriuretic Peptide 2685 H Total Protein 7.2 Albumin 3.9 Influenza Type A (PCR) NEGATIVE Influenza Type B (PCR) NEGATIVE RSV RNA Qual (PCR) NEGATIVE SARS-CoV-2 RNA (RT-PCR) NEGATIVE Imaging Radiologist's Impressions: Impressions Chest X-Ray 01/24/24 10:35 IMPRESSION: No significant change since 12/04/2023. Electronically signed by: Daren Palmer MD 01/24/2024 11:29 AM EST RP Foot X-Ray 01/24/24 12:00 IMPRESSION: Atherosclerosis disease, peripheral. No acute fracture or dislocation or osteomyelitis based upon x-ray Electronically signed by: Douglas Lundberg MD 01/24/2024 12:24 PM EST RP Assessment and Plan (1) Recurrent pleural effusion on right: Status: Chronic (2) Chronic combined systolic and diastolic CHF (congestive heart failure): Status: Chronic (3) ESRD on dialysis: Status: Chronic (4) Type 2 diabetes mellitus: Status: Chronic Plan Patient is a 68-year-old [place]-speaking male with a past medical history significant for ESRD on HD MWF on transplant list (Dr. Shea) last went today, T2DM on insulin, HTN, HLD, ROBERT on CPAP, GERD, grade 3 diastolic heart failure (EF 35%), on O2 2 L via NC at home, who presented to the ED today with worsening shortness of breath with exertion and continued right foot pain, worsening. He was recently seen on 01/07 for right foot pain and possible cellulitis versus osteomyelitis, x-ray was negative and he was sent home with doxycycline and Keflex. Also with chronic RLL pleural effusion s/p chest tube 11/28/23. CHF exacerbation vs chronic RLL pleural effusion - no LE edema - CXR with significant change since 12/04/2023, stable moderate right pleural fluid or thickening and underlying volume loss with atelectasis in the right lower lung - BNP elevated, however pt on HD, last went today - will hold off on diuretics at this time - monitor BMP vascular insufficiency vs cellulitis - no leukocytosis, fever or obvious infection in the foot - R foot xray negative for osteomyelitis - RLE arterial doppler ordered - given vanc and zosyn in ED, will hold off on further abx for now - tylenol, oxycodone and diludad PRN for pain - monitor CBC, ESR and CRP ESRD on HD - followed by Dr Friedman - nephro consult in for dialysis while here - K slightly low, given 40 meq PO - monitor BMP and mag insulin depended T2DM - SSI - diabetic diet - lantus 22U QHS HTN - BP elevated, continue to monitor, likely secondary to pain - continue home meds HLD - continue statin ROBERT on CPAP - CPAP at night full code VTE prohpy: heparin Pt with CHF exacerbation versus chronic right lower lobe pleural effusion with additional vascular insufficiency versus cellulitis with failed outpatient treatment, complicated by end-stage renal disease on hemodialysis requiring admission for possible repeat chest tube and monitoring for at least 2 midnights stay. Quality Stroke Does the patient have a stroke diagnosis?: No VTE Prior VTE?: No VTE Risk Level:: Medical - moderate - high VTE Device Contraindication: Treatment Not Indicated VTE Drug Contraindication: N/A - Med Ordered
--- NOTE | 2024-01-24 14:21 | PHA.MEDREC ---
Addendum entered by Virginia Dunne 01/24/24 20:43: Called patient lorena Baez at 2034 since he did not call us back and when I was asking about medications he was not aware of them all. I asked about the Atorvastatin 40mg tab which in claims was filled 10/23 for 90 days and the son stated he was unaware of that medication and stated about 6 months ago, medications were changed by his Dr and that could of been one of them and when I stated it was filled in October for 90 days he was not sure. I utilized a Discharge packet from 12/06 to confirm the rest of the med rec. Addendum entered by Nora Norman RPh 01/24/24 14:41: Med rec was reviewed by [facility]. Original Note: Pharmacy Consult ? Medication Reconciliation Pharmacy has completed the medication reconciliation. Spoke to patient thorough pickers material handlers service (Paul) to confirm med list. Patient state he doesn't know the names of his medications. Called and spoke to patients johanna Baez. Son states that he is an hour away from home and doesn't know everything by heart . Son states that patient fills is medication through [facility]. Son was able to confirm Lantus is 22 units at bedtime and Insulin Lispro is per sliding scale , however he doesn't know the min or max units. Son may call later to confirm med list. Utilized claims to confirm med list.
[2024-01-24] MEDS: Heparin Sodium,Porcine 5,000 UNIT/ML VIAL 5000 UNIT SUBCUT (14:31)
[2024-01-24] MEDS: vancomycin/NS 2,000 MG/500 ML PLAST..BAG 250 MG IV (14:33)
[2024-01-24] MEDS: Potassium Chloride ER 20 MEQ TAB.ER.PRT 40 MEQ PO (14:33)
[2024-01-24] MEDS: allopurinoL 100 MG TABLET PO (16:45)
[2024-01-24 17:04] LABS: Glucose, Whole Blood 139 mg/dL (60-115)
--- NOTE | 2024-01-24 18:21 | PC.NURSE ---
Pt has been resting quietly/sleeping on stretcher for most of the afternoon. BP noted to be elevated at 212/87. Pt is asymptomatic at this time and offers no complaints. Attending notified and awaiting orders.
[2024-01-24] MEDS: hydrALAZINE HCl 20 MG/ML VIAL 5 MG IVPUSH (18:32)
--- NOTE | 2024-01-24 18:54 | PC.NURSE ---
Pt assisted with getting situated for dinner. Pt c/o feeling SOB although o2 sat is 94-95%. BP has not decreased with IV hydralazine, will need re-check in 5 minutes.
--- NOTE | 2024-01-24 19:22 | MHC.EDTECH ---
This pct assumed care of Patient at 1900 ,vitals taken ,Patient resting quietly in bed .
--- NOTE | 2024-01-24 19:25 | PC.NURSE ---
notified hospitalist of pt HTN. Awaiting new orders
[2024-01-24] MEDS: Acetaminophen 325 MG TABLET 650 MG PO (19:41)
--- NOTE | 2024-01-24 20:10 | PC.NURSE ---
assumed care of pt at 1900. PT a/o, endorsing 3/10 WHITE. PT elevated initially, switched cuff to right arm and it reduced to 182/81. Notified provider of initial concerning bp and improved bp, provider still gave ok to administer prn labetolol. PT moved by transporter prior to t/w being able to administer
[2024-01-24] MEDS: Doxazosin Mesylate 2 MG TABLET 4 MG PO (20:41)
[2024-01-24] MEDS: hydrALAZINE HCl 25 MG TABLET PO (20:41)
[2024-01-24] MEDS: oxyCODONE HCl Immed Release 5 MG TABLET PO (20:41)
[2024-01-24 21:10] LABS: Glucose, Whole Blood 198 mg/dL (60-115)
[2024-01-24] MEDS: Insulin Glargine,Hum.rec.anlog 100 UNIT/ML 10 ML VIAL 22 UNIT SUBCUT (22:06)
[2024-01-24] MEDS: Insulin Lispro 100 UNIT/ML 3 ML VIAL SUBCUT (22:06)
[2024-01-24] MEDS: HYDROmorphone HCl 0.5 MG/0.5 ML SYRINGE IVPUSH (23:31)
[2024-01-24] MEDS: Melatonin 3 MG TABLET 6 MG PO (23:32)
[2024-01-24] MEDS: 0.9 % Sodium Chloride Flush 3 ML SYRINGE IVFLUSH (23:35)
[2024-01-25] VITALS (9 sets, daily range): BP systolic 140–196; BP diastolic 67–88; PULSE 85–99; RESP 16–24; TEMP 37.1–38.1; O2SAT 90–96
[2024-01-25] MEDS: oxyCODONE HCl Immed Release 5 MG TABLET PO ×4 (03:40→23:15)
[2024-01-25] MEDS: Heparin Sodium,Porcine 5,000 UNIT/ML VIAL 5000 UNIT SUBCUT ×2 (03:41→14:22)
[2024-01-25] MEDS: Omeprazole 20 MG CAPSULE.DR PO (05:44)
[2024-01-25 07:26] LABS: Glucose, Whole Blood 95 mg/dL (60-115)
[2024-01-25] MEDS: hydrALAZINE HCl 25 MG TABLET PO ×3 (08:01→20:36)
[2024-01-25] MEDS: Pregabalin 75 MG CAPSULE PO (08:01)
[2024-01-25] MEDS: Atorvastatin Calcium 40 MG TABLET PO (08:01)
[2024-01-25] MEDS: Losartan Potassium 25 MG TABLET PO (08:01)
[2024-01-25] MEDS: Aspirin Enteric Coated 81 MG TABLET.DR PO (08:04)
--- NOTE | 2024-01-25 09:51 | MHC.CM.PN ---
IMM 01/25/24, Pt lives with his son, who also provides [employer]NA[employer] services to him daily. HCP is on file and confirmed: his son Nestor. He has daily nurse visits from Renetta ZAFAR. PCP is confirmed: Shayla Augustine. For DME he has a w/c and a cane and home O2. Pt goes to dialysis MWF at [facility] in [place]. Transport home at DC is via son. DCP: home, resume services. CM to follow for DC needs.
--- NOTE | 2024-01-25 10:28 | HO.PM.IMPN ---
Subjective Subjective Date of Service: 01/25/24 Interval History: rle pain Physical Exam Vital Signs: Vital Signs: Last Vital Signs Temp 100.1 F 01/25/24 08:00 Pulse 85 01/25/24 08:00 Resp 20 01/25/24 08:00 BP 143/67 H 01/25/24 08:00 Pulse Ox 96 01/25/24 08:00 O2 Del Method Nasal Cannula 01/25/24 08:00 O2 Flow Rate 2 01/25/24 08:00 BMI result Body Mass Index 30.8 General: AO X 3, no acute distress Resp: diminished on right, no accessory muscles used CVS: S1,S2,RRR GI: soft, non tender, non distended Neuro: motor grossly intact, alert Psych: appropriate affect, appropriate insight rle 1st and 3rd toe dry gangrene Objective Data Active Medications Acetaminophen (Acetaminophen 325 Mg Tablet) 650 mg PO Q6H PRN PRN Reason: Pain, Mild (Pain Scale 1-3), fever or headache Last Admin: 01/24/24 19:41 Dose: 650 mg Documented By: AMERICA Albuterol Sulfate (Albuterol Sulfate 90 Mcg 8 Gm Inhaler) 2 puff INHALE Q4H PRN PRN Reason: Shortness Of Breath Allopurinol (Allopurinol 100 Mg Tablet) 100 mg PO MOWEFR@1600 [facility] Last Admin: 01/24/24 16:45 Dose: 100 mg Documented By: FRANK Aspirin (Aspirin Enteric Coated 81 Mg Tablet.Dr) 81 mg PO DAILY [facility] Last Admin: 01/25/24 08:04 Dose: 81 mg Documented By: MADI Atorvastatin Calcium (Atorvastatin Calcium 40 Mg Tablet) 40 mg PO DAILY [facility] Last Admin: 01/25/24 08:01 Dose: 40 mg Documented By: MADI Calcium Carbonate (Calcium Carbonate 750 Mg Tab.Chew) 750 mg PO Q4H PRN PRN Reason: Heartburn Doxazosin Mesylate (Doxazosin Mesylate 2 Mg Tablet) 4 mg PO BEDTIME [facility]; Protocol Last Admin: 01/24/24 20:41 Dose: 4 mg Documented By: SERA Fluticasone Propionate (Fluticasone Propionate Nasal 16 Gm [place]) 1 spray NOSTRIL-B BID [facility] Last Admin: 01/24/24 22:09 Dose: Not Given Documented By: SERA Non-Admin Reason: Med Not Available Fluticasone/Umeclidinium/Vilanterol (Fluticasone/Umeclidinium/Vilanterol 200/62.5/25 Blst.W.Dev) 1 puff INHALE RDAILY [facility] Glucose (Glucose Gel 15 Gm Gel..Gram.) 15 gm PO Q15M PRN; Protocol PRN Reason: per Hypoglycemia Standing Ord. Heparin Sodium (Porcine) (Heparin Sodium,Porcine 5,000 Unit/Ml Vial) 5,000 unit SUBCUT Q12H [facility] Last Admin: 01/25/24 03:41 Dose: 5,000 unit Documented By: SERA Hydralazine HCl (Hydralazine Hcl 25 Mg Tablet) 25 mg PO TID [facility]; Protocol Last Admin: 01/25/24 08:01 Dose: 25 mg Documented By: MADI Hydralazine HCl (Hydralazine Hcl 20 Mg/Ml Vial) 5 mg IVPUSH Q6H PRN; Protocol PRN Reason: sbp > 200 Last Admin: 01/24/24 18:32 Dose: 5 mg Documented By: FRANK Hydromorphone HCl (Hydromorphone Hcl 0.5 Mg/0.5 Ml Syringe) 0.5 mg IVPUSH Q4H PRN; Protocol PRN Reason: Pain, Severe (Pain Scale 7-10) Last Admin: 01/24/24 23:31 Dose: 0.5 mg Documented By: SERA Dextrose (D10) 250 mls @ 750 mls/hr IV Q15M PRN; Protocol PRN Reason: per Hypoglycemia Standing Ord. Insulin Glargine (Insulin Glargine,Hum.Rec.Anlog 100 Unit/Ml 10 Ml Vial) 22 unit SUBCUT BEDTIME [facility] Last Admin: 01/24/24 22:06 Dose: 22 unit Documented By: SERA Insulin Human Lispro (Insulin Lispro 100 Unit/Ml 3 Ml Vial) 0 unit SUBCUT QIDACHS [facility]; Protocol Last Admin: 01/25/24 07:57 Dose: Not Given Documented By: MADI Non-Admin Reason: No Insulin Coverage Losartan Potassium (Losartan Potassium 25 Mg Tablet) 25 mg PO DAILY [facility]; Protocol Last Admin: 01/25/24 08:01 Dose: 25 mg Documented By: MADI Magnesium Hydroxide (Milk Of Magnesia 30 Ml Oral.Susp) 30 ml PO DAILY PRN PRN Reason: Constipation Melatonin (Melatonin 3 Mg Tablet) 6 mg PO BEDTIME PRN PRN Reason: Insomnia Last Admin: 01/24/24 23:32 Dose: 6 mg Documented By: SERA Non-Formulary Medication (Sucroferric Oxyhydroxide [Velphoro]) 500 mg PO TID [facility] Omeprazole (Omeprazole 20 Mg Capsule.) 20 mg PO DAILY@0630 [facility] Last Admin: 01/25/24 05:44 Dose: 20 mg Documented By: SERA Ondansetron HCl (Ondansetron Hcl 4 Mg/2 Ml Vial) 4 mg IVPUSH Q8H PRN PRN Reason: Nausea and Vomiting Oxycodone HCl (Oxycodone Hcl Immed Release 5 Mg Tablet) 5 mg PO Q6H PRN PRN Reason: Pain, Moderate(Pain Scale 4-6) Last Admin: 01/25/24 08:10 Dose: 5 mg Documented By: MADI Pregabalin (Pregabalin 75 Mg Capsule) 75 mg PO DAILY [facility] Last Admin: 01/25/24 08:01 Dose: 75 mg Documented By: MADI Sodium Chloride (0.9 % Sodium Chloride Flush 3 Ml Syringe) 3 ml IVFLUSH QSHIFT [facility] Last Admin: 01/24/24 23:35 Dose: 3 ml Documented By: SERA Labs 01/24/24 10:45 01/24/24 10:45 Labs: Laboratory Results - last 24 hr 01/24/24 01/24/24 01/24/24 10:45 13:07 17:01 MCV 74.1 L MCH 23.2 L MCHC 31.3 RDW 15.4 Plt Count 145 L MPV Not Reportable Immature Gran % (Auto) 0.3 Neut % (Auto) 80.4 H Lymph % (Auto) 8.4 L [place] % (Auto) 8.2 Eos % (Auto) 2.4 Baso % (Auto) 0.3 Lymph # (Auto) 0.8 L [place] # (Auto) 0.8 Eos # (Auto) 0.2 Baso # (Auto) 0.0 Abs Immat Gran (auto) 0.03 Absolute Neuts (auto) 7.4 Absolute Nucleated RBC 0.000 Nucleated RBC % (auto) 0.0 Anion Gap 14 Estim Creat Clear Calc 13.8 Estimated GFR 12 POC Glucose 139 H Random Glucose 153 H Lactic Acid 1.2 Calcium 7.9 L D Total Bilirubin 0.8 AST 23 ALT 23 Alkaline Phosphatase 139 H B-Natriuretic Peptide 2685 H Total Protein 7.2 Albumin 3.9 Influenza Type A (PCR) NEGATIVE Influenza Type B (PCR) NEGATIVE RSV RNA Qual (PCR) NEGATIVE SARS-CoV-2 RNA (RT-PCR) NEGATIVE 01/24/24 01/25/24 20:58 07:15 MCV MCH MCHC RDW Plt Count MPV Immature Gran % (Auto) Neut % (Auto) Lymph % (Auto) [place] % (Auto) Eos % (Auto) Baso % (Auto) Lymph # (Auto) [place] # (Auto) Eos # (Auto) Baso # (Auto) Abs Immat Gran (auto) Absolute Neuts (auto) Absolute Nucleated RBC Nucleated RBC % (auto) Anion Gap Estim Creat Clear Calc Estimated GFR POC Glucose 198 H 95 Random Glucose Lactic Acid Calcium Total Bilirubin AST ALT Alkaline Phosphatase B-Natriuretic Peptide Total Protein Albumin Influenza Type A (PCR) Influenza Type B (PCR) RSV RNA Qual (PCR) SARS-CoV-2 RNA (RT-PCR) Assessment and Plan (1) Hypertension: Status: Chronic Plan 68M PMH end-stage renal disease on hemodialysis, diabetes, hypertension, hyperlipidemia, ROBERT on CPAP, GERD, chronic diastolic and systolic CHF, chronic hypoxic respiratory failure on 2 L home O2 presented with shortness of breath and right lower extremity pain Acute on chronic systolic and diastolic CHF Continue with hemodialysis Recurrent right moderate pleural effusion Thoracic following Right lower extremity dry gangrene with peripheral vascular disease Follow-up vascular ESRD HD, nephro dm basal bolus insulin htn uncontrolled Continue carvedilol, doxazosin, hydralazine, losartan ROBERT Continue CPAP at night DVT prophylaxis with heparin subQ Full code reason for continued hospitalization:working up effusion and pvd Quality Stroke Does the patient have a stroke diagnosis?: No VTE Prior VTE?: No VTE Risk Level:: Medical - moderate - high VTE Device Contraindication: Treatment Not Indicated VTE Drug Contraindication: N/A - Med Ordered
[2024-01-25] MEDS: HYDROmorphone HCl 0.5 MG/0.5 ML SYRINGE IVPUSH ×3 (10:56→20:38)
[2024-01-25] MEDS: 0.9 % Sodium Chloride Flush 3 ML SYRINGE IVFLUSH ×3 (10:58→20:39)
[2024-01-25 11:30] LABS: Glucose, Whole Blood 126 mg/dL (60-115)
[2024-01-25] MEDS: Fluticasone/Umeclidinium/Vilanterol 200/62.5/25 BLST.W.DEV 1 PUFF INHALE (11:47)
[2024-01-25] MEDS: amLODIPine Besylate 5 MG TABLET PO (12:42)
--- NOTE | 2024-01-25 13:19 | PM.CNNEP ---
History of Present Illness Reason for Consult Consult date: 01/28/24 Chief Complaint Chief complaint: CHF exacerbation History of Present Illness Narrative: 67-year-old primarily [place]an-speaking male presents for evaluation of shortness of breath He has a history of diabetes, HTN, HLD, ROBERT on CPAP, GERD, grade 3 diastolic heart failure, COPD/asthma, , end-stage renal disease on dialysis Monday, Monday, Monday, DVT on Eliquis, on O2 2 L via NC at home, who presented to the ED with worsening shortness of breath with exertion and continued right foot pain he has h/o cutting short treatments and wt gain [facility] Past Medical History Medical History (Updated 01/25/24 @ 14:21 by Amarilis Mcdaniels PA-C) Chronic combined systolic and diastolic CHF (congestive heart failure) ESRD on dialysis Acute on chronic systolic and diastolic heart failure, NYHA class 3 HFrEF (heart failure with reduced ejection fraction) ESRD (end stage renal disease) Anemia ESRD (end stage renal disease) Chronic pericardial effusion Arthritis Asthma Restless leg syndrome Occlusive thrombus Pulmonary edema ROBERT (obstructive sleep apnea) Type 2 diabetes mellitus Hyperlipidemia Hypertension A-V fistula Falling Family History Family History Father No problems noted. Mother No problems noted. Surgical History Surgical History Recurrent pleural effusion Pleural effusion on right (07/13/23) History of surgery H/O colonoscopy Social History Social History Household Members: Family Household Members Other:: son Housing: House Do you presently have visiting nurse or other home services: No Alcohol intake: never Comment: counts correct Patient Tobacco Use Status: Former Tobacco user Tobacco use type: Cigarette Second Hand Smoke Exposure: No Advance Directives Date on File: 10/04/23 service: No Meds Allergies Allergy/AdvReac Type Severity Reaction Status Date / Time No Known Allergies Allergy Verified 01/24/24 10:34 Active Medications: Current Medications Acetaminophen (Acetaminophen 325 Mg Tablet) 650 mg PO Q6H PRN PRN Reason: Pain, Mild (Pain Scale 1-3), fever or headache Last Admin: 01/24/24 19:41 Dose: 650 mg Albuterol Sulfate (Albuterol Sulfate 90 Mcg 8 Gm Inhaler) 2 puff INHALE Q4H PRN PRN Reason: Shortness Of Breath Allopurinol (Allopurinol 100 Mg Tablet) 100 mg PO MOWEFR@1600 [facility] Last Admin: 01/24/24 16:45 Dose: 100 mg Amlodipine Besylate (Amlodipine Besylate 5 Mg Tablet) 5 mg PO DAILY [facility]; Protocol Last Admin: 01/25/24 12:42 Dose: 5 mg Aspirin (Aspirin Enteric Coated 81 Mg Tablet.Dr) 81 mg PO DAILY [facility] Last Admin: 01/25/24 08:04 Dose: 81 mg Atorvastatin Calcium (Atorvastatin Calcium 40 Mg Tablet) 40 mg PO DAILY [facility] Last Admin: 01/25/24 08:01 Dose: 40 mg Calcium Carbonate (Calcium Carbonate 750 Mg Tab.Chew) 750 mg PO Q4H PRN PRN Reason: Heartburn Doxazosin Mesylate (Doxazosin Mesylate 2 Mg Tablet) 4 mg PO BEDTIME [facility]; Protocol Last Admin: 01/24/24 20:41 Dose: 4 mg Fluticasone Propionate (Fluticasone Propionate Nasal 16 Gm [place]) 1 spray NOSTRIL-B BID [facility] Last Admin: 01/24/24 22:09 Dose: Not Given Fluticasone/Umeclidinium/Vilanterol (Fluticasone/Umeclidinium/Vilanterol 200/62.5/25 Blst.W.Dev) 1 puff INHALE RDAILY [facility] Last Admin: 01/25/24 11:47 Dose: 1 puff Glucose (Glucose Gel 15 Gm Gel..Gram.) 15 gm PO Q15M PRN; Protocol PRN Reason: per Hypoglycemia Standing Ord. Heparin Sodium (Porcine) (Heparin Sodium,Porcine 5,000 Unit/Ml Vial) 5,000 unit SUBCUT Q12H [facility] Last Admin: 01/25/24 03:41 Dose: 5,000 unit Hydralazine HCl (Hydralazine Hcl 25 Mg Tablet) 25 mg PO TID [facility]; Protocol Last Admin: 01/25/24 08:01 Dose: 25 mg Hydralazine HCl (Hydralazine Hcl 20 Mg/Ml Vial) 5 mg IVPUSH Q6H PRN; Protocol PRN Reason: sbp > 200 Last Admin: 01/24/24 18:32 Dose: 5 mg Hydromorphone HCl (Hydromorphone Hcl 0.5 Mg/0.5 Ml Syringe) 0.5 mg IVPUSH Q4H PRN; Protocol PRN Reason: Pain, Severe (Pain Scale 7-10) Last Admin: 01/25/24 10:56 Dose: 0.5 mg Dextrose (D10) 250 mls @ 750 mls/hr IV Q15M PRN; Protocol PRN Reason: per Hypoglycemia Standing Ord. Insulin Glargine (Insulin Glargine,Hum.Rec.Anlog 100 Unit/Ml 10 Ml Vial) 22 unit SUBCUT BEDTIME [facility] Last Admin: 01/24/24 22:06 Dose: 22 unit Insulin Human Lispro (Insulin Lispro 100 Unit/Ml 3 Ml Vial) 0 unit SUBCUT QIDACHS [facility]; Protocol Last Admin: 01/25/24 12:44 Dose: Not Given Losartan Potassium (Losartan Potassium 25 Mg Tablet) 25 mg PO DAILY [facility]; Protocol Last Admin: 01/25/24 08:01 Dose: 25 mg Magnesium Hydroxide (Milk Of Magnesia 30 Ml Oral.Susp) 30 ml PO DAILY PRN PRN Reason: Constipation Melatonin (Melatonin 3 Mg Tablet) 6 mg PO BEDTIME PRN PRN Reason: Insomnia Last Admin: 01/24/24 23:32 Dose: 6 mg Non-Formulary Medication (Sucroferric Oxyhydroxide [Velphoro]) 500 mg PO TID [facility] Omeprazole (Omeprazole 20 Mg Capsule.Dr) 20 mg PO DAILY@0630 [facility] Last Admin: 01/25/24 05:44 Dose: 20 mg Ondansetron HCl (Ondansetron Hcl 4 Mg/2 Ml Vial) 4 mg IVPUSH Q8H PRN PRN Reason: Nausea and Vomiting Oxycodone HCl (Oxycodone Hcl Immed Release 5 Mg Tablet) 5 mg PO Q4H PRN PRN Reason: Pain, Moderate(Pain Scale 4-6) Last Admin: 01/25/24 12:43 Dose: 5 mg Pregabalin (Pregabalin 75 Mg Capsule) 75 mg PO DAILY [facility] Last Admin: 01/25/24 08:01 Dose: 75 mg Sodium Chloride (0.9 % Sodium Chloride Flush 3 Ml Syringe) [facility] Last Admin: 01/25/24 10:58 Dose: 3 ml Home Medications ?Medication ?Instructions ?Recorded ?Confirmed ?Last Taken ?Type albuterol sulfate 90 mcg/actuation 2 puff inhalation Q4H PRN 04/19/22 01/24/24 Unknown History aerosol inhaler Shortness Of Breath allopurinol 100 mg tablet 100 mg PO MOWEFR@1600 04/19/22 01/24/24 11/27/23 History atorvastatin 40 mg tablet 40 mg PO DAILY 04/19/22 01/24/24 11/27/23 History doxazosin 4 mg tablet 4 mg PO BEDTIME 04/19/22 01/24/24 11/27/23 History furosemide 80 mg tablet 80 mg PO DAILY 04/19/22 01/24/24 11/27/23 History ipratropium 0.5 mg-albuterol 3 mg 3 ml inhalation QID PRN Wheezing 04/19/22 01/24/24 Unknown History (2.5 mg base)/3 mL nebulization soln omeprazole 20 mg capsule,delayed 20 mg PO DAILY@0630 04/19/22 01/24/24 11/27/23 History release sennosides 8.6 mg-docusate sodium 1 tab PO DAILY PRN Constipation 04/19/22 01/24/24 04/19/22 History 50 mg tablet (Senna-Time S) insulin glargine 100 unit/mL (3 22 unit subcut BEDTIME 04/10/23 01/24/24 11/27/23 History mL) subcutaneous pen (Lantus Solostar U-100 Insulin) insulin lispro 100 unit/mL 1 sliding scale dose subcut TIDAC 04/10/23 01/24/24 11/27/23 History subcutaneous pen aspirin 81 mg tablet,delayed 81 mg PO DAILY 06/20/23 01/24/24 11/27/23 History release pregabalin 75 mg capsule 75 mg PO DAILY 06/20/23 01/24/24 11/27/23 History fluticasone fur. 200 mcg-umeclid 1 ea inhalation DAILY 01/24/24 01/24/24 Unknown History 62.5 mcg-vilant 25 mcg inhalat.powder (Trelegy Ellipta) hydralazine 25 mg tablet 25 mg PO TID 01/24/24 01/24/24 Unknown History sucroferric oxyhydroxide 500 mg 500 mg PO TID 01/24/24 01/24/24 Unknown History chewable tablet (Velphoro) Physical Exam Vital Signs: Last Vital Signs Temp 99.7 F 01/25/24 12:00 Pulse 90 01/25/24 12:00 Resp 20 01/25/24 12:00 BP 192/77 H 01/25/24 12:00 Pulse Ox 95 01/25/24 12:00 O2 Del Method Nasal Cannula 01/25/24 12:00 O2 Flow Rate 2 01/25/24 12:00 BMI result Body Mass Index 30.8 Results Lab Results 01/26/24 05:47 01/26/24 05:47 Lab results: Chemistry 01/24/24 10:45 Sodium 141 Potassium 3.2 L Carbon Dioxide 29 BUN 20 H Creatinine 4.84 H* Calcium 7.9 L D Hematology 01/24/24 10:45 WBC 9.2 Hgb 10.4 L Plt Count 145 L Assessment and Plan (1) ESRD on dialysis: Status: Chronic Plan usually has HD M-W- at [facility] dialysis- first shift non adherence with h/o terminating treatments early last dialysed at his unit on ongoing treatment for R le gangrene / pvd REC HD MWF schedule optimize volume status improve adherence IR/ thoracic fu for recurrent pleural effusion chf- coreg and entresto as op no need for NAYE (Hb > 11) phosphate binders renal diet Procedures Date of Service Date of Service: 01/28/24
--- NOTE | 2024-01-25 13:40 | HO.THORCON_ITS ---
History of Present Illness Consult details Consult date: 01/25/24 Narrative: Patient was a 68-year-old male with a plethora of comorbidities and intercurrent medical problems, very well known to the thoracic surgical service. He has had a chronic recurrent right pleural effusion which has been treated with serial thoracentesis as well as a PleurX catheter placement in the past. CT scan of chest on this admission demonstrates minimal pleural effusion and consolidated atelectatic lung. Consult with IR felt that there was minimal pleural fluid to be drained and the majority of findings are the lung. Patient has had history of among other issues dyspnea with exertion in the states this is unchanged. He does not have a productive cough, or any other new or acute respiratory issues. Chart was reviewed and patient evaluated PMFSH Past Medical History Medical History (Updated 01/24/24 @ 15:52 by Alisson Luna PA-C) Chronic combined systolic and diastolic CHF (congestive heart failure) ESRD on dialysis Acute on chronic systolic and diastolic heart failure, NYHA class 3 HFrEF (heart failure with reduced ejection fraction) ESRD (end stage renal disease) Anemia ESRD (end stage renal disease) Chronic pericardial effusion Arthritis Asthma Restless leg syndrome Occlusive thrombus Pulmonary edema ROBERT (obstructive sleep apnea) Type 2 diabetes mellitus Hyperlipidemia Hypertension A-V fistula Falling Family History Family History Father No problems noted. Mother No problems noted. Surgical History Surgical History Recurrent pleural effusion Pleural effusion on right (07/13/23) History of surgery H/O colonoscopy Social History Social History Household Members: Family Household Members Other:: son Housing: House Do you presently have visiting nurse or other home services: No Alcohol intake: never Comment: counts correct Patient Tobacco Use Status: Former Tobacco user Tobacco use type: Cigarette Second Hand Smoke Exposure: No Advance Directives Date on File: 10/04/23 service: No Meds Allergies Allergy/AdvReac Type Severity Reaction Status Date / Time No Known Allergies Allergy Verified 01/24/24 10:34 Active Medications: Current Medications Acetaminophen (Acetaminophen 325 Mg Tablet) 650 mg PO Q6H PRN PRN Reason: Pain, Mild (Pain Scale 1-3), fever or headache Last Admin: 01/24/24 19:41 Dose: 650 mg Albuterol Sulfate (Albuterol Sulfate 90 Mcg 8 Gm Inhaler) 2 puff INHALE Q4H PRN PRN Reason: Shortness Of Breath Allopurinol (Allopurinol 100 Mg Tablet) 100 mg PO MOWEFR@1600 [facility] Last Admin: 01/24/24 16:45 Dose: 100 mg Amlodipine Besylate (Amlodipine Besylate 5 Mg Tablet) 5 mg PO DAILY [facility]; Protocol Last Admin: 01/25/24 12:42 Dose: 5 mg Aspirin (Aspirin Enteric Coated 81 Mg Tablet.Dr) 81 mg PO DAILY [facility] Last Admin: 01/25/24 08:04 Dose: 81 mg Atorvastatin Calcium (Atorvastatin Calcium 40 Mg Tablet) 40 mg PO DAILY [facility] Last Admin: 01/25/24 08:01 Dose: 40 mg Calcium Carbonate (Calcium Carbonate 750 Mg Tab.Chew) 750 mg PO Q4H PRN PRN Reason: Heartburn Doxazosin Mesylate (Doxazosin Mesylate 2 Mg Tablet) 4 mg PO BEDTIME [facility]; Protocol Last Admin: 01/24/24 20:41 Dose: 4 mg Fluticasone Propionate (Fluticasone Propionate Nasal 16 Gm [place]) 1 spray NOSTRIL-B BID [facility] Last Admin: 01/24/24 22:09 Dose: Not Given Fluticasone/Umeclidinium/Vilanterol (Fluticasone/Umeclidinium/Vilanterol 200/62.5/25 Blst.W.Dev) 1 puff INHALE RDAILY [facility] Last Admin: 01/25/24 11:47 Dose: 1 puff Glucose (Glucose Gel 15 Gm Gel..Gram.) 15 gm PO Q15M PRN; Protocol PRN Reason: per Hypoglycemia Standing Ord. Heparin Sodium (Porcine) (Heparin Sodium,Porcine 5,000 Unit/Ml Vial) 5,000 unit SUBCUT Q12H [facility] Last Admin: 01/25/24 03:41 Dose: 5,000 unit Hydralazine HCl (Hydralazine Hcl 25 Mg Tablet) 25 mg PO TID [facility]; Protocol Last Admin: 01/25/24 08:01 Dose: 25 mg Hydralazine HCl (Hydralazine Hcl 20 Mg/Ml Vial) 5 mg IVPUSH Q6H PRN; Protocol PRN Reason: sbp > 200 Last Admin: 01/24/24 18:32 Dose: 5 mg Hydromorphone HCl (Hydromorphone Hcl 0.5 Mg/0.5 Ml Syringe) 0.5 mg IVPUSH Q4H PRN; Protocol PRN Reason: Pain, Severe (Pain Scale 7-10) Last Admin: 01/25/24 10:56 Dose: 0.5 mg Dextrose (D10) 250 mls @ 750 mls/hr IV Q15M PRN; Protocol PRN Reason: per Hypoglycemia Standing Ord. Vancomycin HCl 500 mg/ Sodium (Chloride) 110 mls @ 110 mls/hr IV Q48H [facility] Piperacillin Sod/Tazobactam (Sod 3.375 gm/ Sodium Chloride) 50 mls @ 100 mls/hr IV Q12H [facility] Insulin Glargine (Insulin Glargine,Hum.Rec.Anlog 100 Unit/Ml 10 Ml Vial) 22 unit SUBCUT BEDTIME [facility] Last Admin: 01/24/24 22:06 Dose: 22 unit Insulin Human Lispro (Insulin Lispro 100 Unit/Ml 3 Ml Vial) 0 unit SUBCUT QIDACHS [facility]; Protocol Last Admin: 01/25/24 12:44 Dose: Not Given Losartan Potassium (Losartan Potassium 25 Mg Tablet) 25 mg PO DAILY [facility]; Protocol Last Admin: 01/25/24 08:01 Dose: 25 mg Magnesium Hydroxide (Milk Of Magnesia 30 Ml Oral.Susp) 30 ml PO DAILY PRN PRN Reason: Constipation Melatonin (Melatonin 3 Mg Tablet) 6 mg PO BEDTIME PRN PRN Reason: Insomnia Last Admin: 01/24/24 23:32 Dose: 6 mg Non-Formulary Medication (Sucroferric Oxyhydroxide [Velphoro]) 500 mg PO TID [facility] Omeprazole (Omeprazole 20 Mg Capsule.Dr) 20 mg PO DAILY@0630 [facility] Last Admin: 01/25/24 05:44 Dose: 20 mg Ondansetron HCl (Ondansetron Hcl 4 Mg/2 Ml Vial) 4 mg IVPUSH Q8H PRN PRN Reason: Nausea and Vomiting Oxycodone HCl (Oxycodone Hcl Immed Release 5 Mg Tablet) 5 mg PO Q4H PRN PRN Reason: Pain, Moderate(Pain Scale 4-6) Last Admin: 01/25/24 12:43 Dose: 5 mg Pharmacy Consult (Consult Rx Vancomycin Dosing) 1 each MISCELLANE DAILY PRN PRN Reason: Consult order Pregabalin (Pregabalin 75 Mg Capsule) 75 mg PO DAILY [facility] Last Admin: 01/25/24 08:01 Dose: 75 mg Sodium Chloride (0.9 % Sodium Chloride Flush 3 Ml Syringe) 3 ml IVFLUSH QSHIFT [facility] Last Admin: 01/25/24 10:58 Dose: 3 ml Home Medications ?Medication ?Instructions ?Recorded ?Confirmed ?Last Taken ?Type albuterol sulfate 90 mcg/actuation 2 puff inhalation Q4H PRN 04/19/22 01/24/24 Unknown History aerosol inhaler Shortness Of Breath allopurinol 100 mg tablet 100 mg PO MOWEFR@1600 04/19/22 01/24/24 11/27/23 History atorvastatin 40 mg tablet 40 mg PO DAILY 04/19/22 01/24/24 11/27/23 History doxazosin 4 mg tablet 4 mg PO BEDTIME 04/19/22 01/24/24 11/27/23 History furosemide 80 mg tablet 80 mg PO DAILY 04/19/22 01/24/24 11/27/23 History ipratropium 0.5 mg-albuterol 3 mg 3 ml inhalation QID PRN Wheezing 04/19/22 01/24/24 Unknown History (2.5 mg base)/3 mL nebulization soln omeprazole 20 mg capsule,delayed 20 mg PO DAILY@0630 04/19/22 01/24/24 11/27/23 History release sennosides 8.6 mg-docusate sodium 1 tab PO DAILY PRN Constipation 04/19/22 01/24/24 04/19/22 History 50 mg tablet (Senna-Time S) insulin glargine 100 unit/mL (3 22 unit subcut BEDTIME 04/10/23 01/24/24 11/27/23 History mL) subcutaneous pen (Lantus Solostar U-100 Insulin) insulin lispro 100 unit/mL 1 sliding scale dose subcut TIDAC 04/10/23 01/24/24 11/27/23 History subcutaneous pen aspirin 81 mg tablet,delayed 81 mg PO DAILY 06/20/23 01/24/24 11/27/23 History release pregabalin 75 mg capsule 75 mg PO DAILY 06/20/23 01/24/2411/26/24 History fluticasone fur. 200 mcg-umeclid 1 ea inhalation DAILY 01/24/24 01/24/24 Unknown History 62.5 mcg-vilant 25 mcg inhalat.powder (Trelegy Ellipta) hydralazine 25 mg tablet 25 mg PO TID 01/24/24 01/24/24 Unknown History sucroferric oxyhydroxide 500 mg 500 mg PO TID 01/24/24 01/24/24 Unknown History chewable tablet (Velphoro) Physical Exam 2 Vital Signs: Vital Signs: Last Vital Signs Temp 99.7 F 01/25/24 12:00 Pulse 90 01/25/24 12:00 Resp 20 01/25/24 12:00 BP 192/77 H 01/25/24 12:00 Pulse Ox 95 01/25/24 12:00 O2 Del Method Nasal Cannula 01/25/24 12:00 O2 Flow Rate 2 01/25/24 12:00 BMI result Body Mass Index 30.8 Const: Other: Patient was resting comfortably in his bed. He is being treated among other things for left great toe and 3rd toe cellulitis. Chest: Other: Breath sounds bilaterally diminished right base GI: Other: Abdomen corpulent, benign Results Labs 01/24/24 10:45 01/24/24 10:45 Labs: Abnormal lab results 01/24/24 01/24/24 01/25/24 Range/Units 17:01 20:58 11:13 POC Glucose 139 H 198 H 126 H (60-115) mg/dL All other labs normal. Assessment and Plan (1) Trapped lung: Status: Acute Plan At present, no acute thoracic surgical intervention is required. The CT scan findings were consistent with chronic scarring and perhaps a trapped lung than an acute infectious process. Patient was also not clinically presenting as if this process were an empyema. Patient would be a very suboptimal candidate for decortication. Consider pulmonary consultation if patient's dyspnea progresses. Procedures Date of Service Date of Service: 01/25/24
--- NOTE | 2024-01-25 13:44 | PM.EVENT ---
Event Note Date of Service: 01/25/24 Event Note: Request for chest tube reviewed. CT performed today reviewed with Dr. Van. This demonstrates a very small loculated right effusion that is significantly smaller compared to CT performed 1 month ago. Right basilar consolidation also noted. This is not amenable to percutaneous drainage. Time Spent With Patient Time: Total time managing care of this patient today ____ minutes.
--- NOTE | 2024-01-25 14:14 | P.CONGS_ITS ---
<Statement entered by Baltazar Cannon MD - 01/25/24 16:41> I have seen and evaluated the patient and agree with history, findings, assessment and plan documented by Amarilis Mcdaniels PA-c. Briefly this is a 68-year-old Sami patient on end-stage renal disease who presented to the hospital with shortness of breath and nonhealing ulcers of the right 1st and 3rd toe. He has recurrent pleural effusions and is currently being evaluated by the thoracic team. He underwent noninvasive arterial testing yesterday. It does appear that he has tibial disease. At the current time the toe do not appear actively infected although they are quite discolored. Once he is stable from thoracic and medical standpoint he is stable for discharge. We can plan for intervention electively as an outpatient. Thank you for allowing us to assist in his care. If there are any questions or concerns please do not hesitate to contact us. Of note I will be away for the next few days and Dr. Valdes will be covering. History of Present Illness Consult details Consult date: 01/25/24 Narrative: We were consulted today for Beau, a pleasant 68 yo male patient, for osteo and R1&3 toes that are discolored. He presented to the ER yesterday for worsening right foot pain. He has a medical hx significant for ESRD on HD MWF on the transplant list, HF, HTN, DM, and pleural effusions. He was also found to have a recurent right pleural effusion. The pt continues to endorse right foot pain but is well controlled with pain medications. Review of Systems 2 Constitutional: Constitutional: Reports as per HPI and Denies weakness ENT: Reports Normal hearing present and Denies dizziness Cardiovascular: Cardiovascular: Reports as per HPI, Denies chest pain, Denies chest pain at rest, Denies chest pain with activity, Denies dyspnea and Denies dyspnea on exertion Respiratory: Respiratory: Reports as per HPI, Denies cough, Denies dyspnea and Denies dyspnea on exertion Gastrointestinal: Gastrointestinal: Reports as per HPI, Denies abdominal pain, Denies nausea and Denies vomiting Musculoskeletal: Musculoskeletal: Denies numbness Integumentary/Breasts: Skin/Breast: Reports as per HPI, Denies erythema and Denies wounds Neurologic: Reports Normal hearing present, Denies dizziness, Denies numbness, Denies Sensory deficit (Neuro) and Denies weakness Psychiatric: Psychiatric: Reports no additional psychiatric complaints Endocrine: Endocrine: Reports no additional endocrine complaints [facility] Past Medical History Medical History (Updated 01/25/24 @ 14:21 by Amarilis Mcdaniels PA-C) Chronic combined systolic and diastolic CHF (congestive heart failure) ESRD on dialysis Acute on chronic systolic and diastolic heart failure, NYHA class 3 HFrEF (heart failure with reduced ejection fraction) ESRD (end stage renal disease) Anemia ESRD (end stage renal disease) Chronic pericardial effusion Arthritis Asthma Restless leg syndrome Occlusive thrombus Pulmonary edema ROBERT (obstructive sleep apnea) Type 2 diabetes mellitus Hyperlipidemia Hypertension A-V fistula Falling Family History Family History Father No problems noted. Mother No problems noted. Surgical History Surgical History Recurrent pleural effusion Pleural effusion on right (07/13/23) History of surgery H/O colonoscopy Social History Social History Household Members: Family Household Members Other:: son Housing: House Do you presently have visiting nurse or other home services: No Alcohol intake: never Comment: counts correct Patient Tobacco Use Status: Former Tobacco user Tobacco use type: Cigarette Second Hand Smoke Exposure: No Advance Directives Date on File: 10/04/23 service: No Meds Allergies Allergy/AdvReac Type Severity Reaction Status Date / Time No Known Allergies Allergy Verified 01/24/24 10:34 Active Medications: Current Medications Acetaminophen (Acetaminophen 325 Mg Tablet) 650 mg PO Q6H PRN PRN Reason: Pain, Mild (Pain Scale 1-3), fever or headache Last Admin: 01/24/24 19:41 Dose: 650 mg Albuterol Sulfate (Albuterol Sulfate 90 Mcg 8 Gm Inhaler) 2 puff INHALE Q4H PRN PRN Reason: Shortness Of Breath Allopurinol (Allopurinol 100 Mg Tablet) 100 mg PO MOWEFR@1600 [facility] Last Admin: 01/24/24 16:45 Dose: 100 mg Amlodipine Besylate (Amlodipine Besylate 5 Mg Tablet) 5 mg PO DAILY [facility]; Protocol Last Admin: 01/25/24 12:42 Dose: 5 mg Aspirin (Aspirin Enteric Coated 81 Mg Tablet.) 81 mg PO DAILY [facility] Last Admin: 01/25/24 08:04 Dose: 81 mg Atorvastatin Calcium (Atorvastatin Calcium 40 Mg Tablet) 40 mg PO DAILY [facility] Last Admin: 01/25/24 08:01 Dose: 40 mg Calcium Carbonate (Calcium Carbonate 750 Mg Tab.Chew) 750 mg PO Q4H PRN PRN Reason: Heartburn Doxazosin Mesylate (Doxazosin Mesylate 2 Mg Tablet) 4 mg PO BEDTIME [facility]; Protocol Last Admin: 01/24/24 20:41 Dose: 4 mg Fluticasone Propionate (Fluticasone Propionate Nasal 16 Gm [place]) 1 spray NOSTRIL-B BID [facility] Last Admin: 01/24/24 22:09 Dose: Not Given Fluticasone/Umeclidinium/Vilanterol (Fluticasone/Umeclidinium/Vilanterol 200/62.5/25 Blst.W.Dev) 1 puff INHALE RDAILY [facility] Last Admin: 01/25/24 11:47 Dose: 1 puff Glucose (Glucose Gel 15 Gm Gel..Gram.) 15 gm PO Q15M PRN; Protocol PRN Reason: per Hypoglycemia Standing Ord. Heparin Sodium (Porcine) (Heparin Sodium,Porcine 5,000 Unit/Ml Vial) 5,000 unit SUBCUT Q12H [facility] Last Admin: 01/25/24 03:41 Dose: 5,000 unit Hydralazine HCl (Hydralazine Hcl 25 Mg Tablet) 25 mg PO TID [facility]; Protocol Last Admin: 01/25/24 08:01 Dose: 25 mg Hydralazine HCl (Hydralazine Hcl 20 Mg/Ml Vial) 5 mg IVPUSH Q6H PRN; Protocol PRN Reason: sbp > 200 Last Admin: 01/24/24 18:32 Dose: 5 mg Hydromorphone HCl (Hydromorphone Hcl 0.5 Mg/0.5 Ml Syringe) 0.5 mg IVPUSH Q4H PRN; Protocol PRN Reason: Pain, Severe (Pain Scale 7-10) Last Admin: 01/25/24 10:56 Dose: 0.5 mg Dextrose (D10) 250 mls @ 750 mls/hr IV Q15M PRN; Protocol PRN Reason: per Hypoglycemia Standing Ord. Vancomycin HCl 500 mg/ Sodium (Chloride) 110 mls @ 110 mls/hr IV Q48H [facility] Piperacillin Sod/Tazobactam (Sod 2.25 gm/ Sodium Chloride) 50 mls @ 100 mls/hr IV Q8H [facility] Insulin Glargine (Insulin Glargine,Hum.Rec.Anlog 100 Unit/Ml 10 Ml Vial) 22 unit SUBCUT BEDTIME [facility] Last Admin: 01/24/24 22:06 Dose: 22 unit Insulin Human Lispro (Insulin Lispro 100 Unit/Ml 3 Ml Vial) 0 unit SUBCUT QIDACHS [facility]; Protocol Last Admin: 01/25/24 12:44 Dose: Not Given Losartan Potassium (Losartan Potassium 25 Mg Tablet) 25 mg PO DAILY [facility]; Protocol Last Admin: 01/25/24 08:01 Dose: 25 mg Magnesium Hydroxide (Milk Of Magnesia 30 Ml Oral.Susp) 30 ml PO DAILY PRN PRN Reason: Constipation Melatonin (Melatonin 3 Mg Tablet) 6 mg PO BEDTIME PRN PRN Reason: Insomnia Last Admin: 01/24/24 23:32 Dose: 6 mg Non-Formulary Medication (Sucroferric Oxyhydroxide [Velphoro]) 500 mg PO TID [facility] Omeprazole (Omeprazole 20 Mg Capsule.Dr) 20 mg PO DAILY@0630 [facility] Last Admin: 01/25/24 05:44 Dose: 20 mg Ondansetron HCl (Ondansetron Hcl 4 Mg/2 Ml Vial) 4 mg IVPUSH Q8H PRN PRN Reason: Nausea and Vomiting Oxycodone HCl (Oxycodone Hcl Immed Release 5 Mg Tablet) 5 mg PO Q4H PRN PRN Reason: Pain, Moderate(Pain Scale 4-6) Last Admin: 01/25/24 12:43 Dose: 5 mg Pharmacy Consult (Consult Rx Vancomycin Dosing) 1 each MISCELLANE DAILY PRN PRN Reason: Consult order Pregabalin (Pregabalin 75 Mg Capsule) 75 mg PO DAILY [facility] Last Admin: 01/25/24 08:01 Dose: 75 mg Sodium Chloride (0.9 % Sodium Chloride Flush 3 Ml Syringe) 3 ml IVFLUSH QSHIFT [facility] Last Admin: 01/25/24 10:58 Dose: 3 ml Home Medications ?Medication ?Instructions ?Recorded ?Confirmed ?Last Taken ?Type albuterol sulfate 90 mcg/actuation 2 puff inhalation Q4H PRN 04/19/22 01/24/24 Unknown History aerosol inhaler Shortness Of Breath allopurinol 100 mg tablet 100 mg PO MOWEFR@1600 04/19/22 01/24/24 11/27/23 History atorvastatin 40 mg tablet 40 mg PO DAILY 04/19/22 01/24/24 11/27/23 History doxazosin 4 mg tablet 4 mg PO BEDTIME 04/19/22 01/24/24 11/27/23 History furosemide 80 mg tablet 80 mg PO DAILY 04/19/22 01/24/24 11/27/23 History ipratropium 0.5 mg-albuterol 3 mg 3 ml inhalation QID PRN Wheezing 04/19/22 01/24/24 Unknown History (2.5 mg base)/3 mL nebulization soln omeprazole 20 mg capsule,delayed 20 mg PO DAILY@0630 04/19/22 01/24/24 11/27/23 History release sennosides 8.6 mg-docusate sodium 1 tab PO DAILY PRN Constipation 04/19/22 01/24/24 04/19/22 History 50 mg tablet (Senna-Time S) insulin glargine 100 unit/mL (3 22 unit subcut BEDTIME 04/10/23 01/24/24 11/27/23 History mL) subcutaneous pen (Lantus Solostar U-100 Insulin) insulin lispro 100 unit/mL 1 sliding scale dose subcut TIDAC 04/10/23 01/24/24 11/27/23 History subcutaneous pen aspirin 81 mg tablet,delayed 81 mg PO DAILY 06/20/23 01/24/24 11/27/23 History release pregabalin 75 mg capsule 75 mg PO DAILY 06/20/23 01/24/24 11/27/23 History fluticasone fur. 200 mcg-umeclid 1 ea inhalation DAILY 01/24/24 01/24/24 Unknown History 62.5 mcg-vilant 25 mcg inhalat.powder (Trelegy Ellipta) hydralazine 25 mg tablet 25 mg PO TID 01/24/24 01/24/24 Unknown History sucroferric oxyhydroxide 500 mg 500 mg PO TID 01/24/24 01/24/24 Unknown History chewable tablet (Velphoro) Physical Exam 2 Vital Signs: Vital Signs: Last Vital Signs Temp 99.7 F 01/25/24 12:00 Pulse 90 11/21/24 12:00 Resp 20 01/25/24 12:00 BP 192/77 H 01/25/24 12:00 Pulse Ox 95 01/25/24 12:00 O2 Del Method Nasal Cannula 01/25/24 12:00 O2 Flow Rate 2 01/25/24 12:00 BMI result Body Mass Index 30.8 Const: General: comfortable and no acute distress O rientation/consciousness: patient oriented x3 HEENT: Ears: hearing grossly normal bilaterally Resp: Effort & Inspection: normal respiratory effort and able to speak in complete sentences Auscultation: clear to auscultation bilaterally Cardio: Rate: regular rate Rhythm: regular rhythm Heart sounds: S1 normal heart sound present and S2 normal heart sound present Bruits: no abdominal aortic bruits, no carotid bruits, no femoral bruits and no renal bruits GI: Palpation (GI): No Abdominal aortic bruit present Neuro: General: patient oriented x3 Cranial nerves: Yes Normal hearing present Sensory Exam: No Sensory deficit (Neuro) Extrem: Other: R1&3 toes: dry black eschar/dry gangrene noted on the tips of both toes and on the medial aspects of the toes. Results Labs 01/24/24 10:45 01/24/24 10:45 Labs: Abnormal lab results 01/24/24 01/24/24 01/25/24 Range/Units 17:01 20:58 11:13 POC Glucose 139 H 198 H 126 H (60-115) mg/dL All other labs normal. Assessment and Plan (1) Osteomyelitis: Qualifiers: Osteomyelitis type: other acute Osteomyelitis location: foot L aterality: right Qualified Code(s): M86.171 - Other acute osteomyelitis, right ankle and foot Status: Acute Plan We were consulted for Beau, for dry gangrene/eschar noted on R1&3. Arterial duplex notes hemodynamically significant right lower extremity infrapopliteal arterial dx. At this point, there is no acute surgical intervention. We will continue to follow. We recommend follow up outpatient, once the pt has stabilized. We suggest to keep the foot clean and dry, and there is no dressing that needs to be applied. Thank you for the consult. If there are any questions or concerns, please do not hesitate to reach out. Procedures Date of Service Date of Service: 01/25/24
[2024-01-25] MEDS: Piperacillin Sodium/Tazobactam 2.25 GM in 0.9 % Sodium Chloride 50 ML IV ×2 (14:23→23:22)
[2024-01-25 14:57] LABS: MANUAL DIFF FLAG NO
[2024-01-25 15:02] LABS: Basophils Absolute Auto 0.1 X10*3/uL (0.0-0.2); Basophils Percent Auto 0.8 % (0-2); Eosinophils Absolute Auto 0.2 X10*3/uL (0.0-0.4); Eosinophils Percent Auto 3.6 % (0-4); Hematocrit 33.4 % (42.0-52.0); Hemoglobin 10.3 g/dl (14.0-18.0); Imm Gran Abs Auto 0.02 X10*3/uL (0.00-0.03); Imm Gran Pct Auto 0.3 % (0.0-0.4); Lymphocytes Absolute Auto 0.5 X10*3/uL (1.2-4.9); Lymphocytes Percent Auto 7.9 % (20-40); Mean Corpuscular HGB Conc 30.8 g/dl (31.0-36.0); Mean Corpuscular Hemoglobin 23.2 pg (27.0-33.0); Mean Corpuscular Volume 75.2 fL (80.0-98.0); Monocytes Percent Auto 16.2 % (2-11); Neutrophils Absolute Auto 4.5 x10*3/uL (2.0-8.3); Neutrophils Percent Auto 71.2 % (45-73); Platelet Count 144 X10*3/uL (160-400); Red Blood Count 4.44 X10*6/uL (4.60-5.80); Red Cell Distribution Width 15.6 % (11.0-16.0); White Blood Count 6.3 X10*3/uL (4.8-10.8)
[2024-01-25 15:42] LABS: Anion Gap 21 (12-20); Blood Urea Nitrogen 48 mg/dL (9-16); Calcium 8.4 mg/dL (8.4-10.2); Carbon Dioxide 21 mmol/L (22-29); Chloride 103 mmol/L (96-108); Creatinine Clr Calc Pharmacy 8.2; Estimated Glomerular Filt Rate 6; Glucose Random 132 mg/dL (60-115); Magnesium 1.7 mg/dL (1.6-2.6); Potassium 4.9 mmol/L (3.3-5.1); Sodium 140 mmol/L (135-145)
[2024-01-25 15:51] LABS: Erythrocyte Sedimentation Rate 29 MM/HR (0-15)
[2024-01-25 16:29] LABS: Glucose, Whole Blood 111 mg/dL (60-115)
[2024-01-25] MEDS: Doxazosin Mesylate 2 MG TABLET 4 MG PO (20:35)
[2024-01-25] MEDS: Insulin Glargine,Hum.rec.anlog 100 UNIT/ML 10 ML VIAL 22 UNIT SUBCUT (20:37)
[2024-01-25] MEDS: Insulin Lispro 100 UNIT/ML 3 ML VIAL SUBCUT (20:44)
[2024-01-25] MEDS: Fluticasone Propionate Nasal 16 GM SPRAY 1 SPRAY NOSTRIL-B (20:45)
[2024-01-25 20:54] LABS: Glucose, Whole Blood 164 mg/dL (60-115)
[2024-01-25] MEDS: Albuterol/Iprat 2.5/0.5MG 3 ML AMPUL.NEB INHALE (23:24)
[2024-01-26 00:15] VITALS: BP 189/81; PULSE 92
[2024-01-26] MEDS: Labetalol HCL 100 MG/20 ML VIAL 10 MG IVPUSH (00:15)
[2024-01-26] MEDS: Heparin Sodium,Porcine 5,000 UNIT/ML VIAL 5000 UNIT SUBCUT (03:29)
[2024-01-26 03:50] VITALS: BP 175/80; RESP 20; TEMP 37.6; O2SAT 94
[2024-01-26] MEDS: Omeprazole 20 MG CAPSULE.DR PO (05:18)
[2024-01-26] MEDS: HYDROmorphone HCl 0.5 MG/0.5 ML SYRINGE IVPUSH ×2 (05:18→09:24)
[2024-01-26] MEDS: Piperacillin Sodium/Tazobactam 2.25 GM in 0.9 % Sodium Chloride 50 ML IV (05:49)
[2024-01-26 07:00] LABS: MANUAL DIFF FLAG NO
[2024-01-26 07:07] LABS: Anion Gap 21 (12-20); Blood Urea Nitrogen 62 mg/dL (9-16); C Reactive Protein 9.16 mg/dL (< or = 0.50); Calcium 8.2 mg/dL (8.4-10.2); Carbon Dioxide 22 mmol/L (22-29); Chloride 100 mmol/L (96-108); Creatinine Clr Calc Pharmacy 7.1; Estimated Glomerular Filt Rate 5; Glucose Fasting 70 mg/dL (60-99); Glucose Random 70 mg/dL (60-115); Magnesium 1.7 mg/dL (1.6-2.6); Potassium 5.2 mmol/L (3.3-5.1); Sodium 138 mmol/L (135-145)
[2024-01-26 07:13] LABS: Basophils Percent Auto 0.7 % (0-2); Eosinophils Absolute Auto 0.2 X10*3/uL (0.0-0.4); Eosinophils Percent Auto 2.8 % (0-4); Hemoglobin 9.9 g/dl (14.0-18.0); Imm Gran Abs Auto 0.03 X10*3/uL (0.00-0.03); Imm Gran Pct Auto 0.5 % (0.0-0.4); Lymphocytes Absolute Auto 0.9 X10*3/uL (1.2-4.9); Lymphocytes Percent Auto 15.2 % (20-40); Mean Corpuscular HGB Conc 30.9 g/dl (31.0-36.0); Mean Corpuscular Hemoglobin 23.4 pg (27.0-33.0); Mean Corpuscular Volume 75.7 fL (80.0-98.0); Monocytes Absolute Auto 1.1 X10*3/uL (0.1-1.2); Monocytes Percent Auto 18.6 % (2-11); Neutrophils Absolute Auto 3.5 x10*3/uL (2.0-8.3); Neutrophils Percent Auto 62.2 % (45-73); Platelet Count 135 X10*3/uL (160-400); Red Blood Count 4.23 X10*6/uL (4.60-5.80); Red Cell Distribution Width 15.5 % (11.0-16.0); White Blood Count 5.7 X10*3/uL (4.8-10.8)
[2024-01-26 07:31] LABS: Glucose, Whole Blood 76 mg/dL (60-115)
[2024-01-26 07:36] LABS: Glucose, Whole Blood 52 mg/dL (60-115)
[2024-01-26 07:44] VITALS: PULSE 84; RESP 20; TEMP 37.3; O2SAT 93
[2024-01-26] MEDS: Fluticasone/Umeclidinium/Vilanterol 200/62.5/25 BLST.W.DEV 1 PUFF INHALE (07:44)
[2024-01-26 07:46] VITALS: PULSE 84; RESP 18; O2SAT 93
[2024-01-26 07:46] LABS: Erythrocyte Sedimentation Rate 31 MM/HR (0-15)
[2024-01-26] MEDS: oxyCODONE HCl Immed Release 5 MG TABLET PO (07:50)
[2024-01-26] MEDS: Atorvastatin Calcium 40 MG TABLET PO (07:50)
[2024-01-26] MEDS: hydrALAZINE HCl 25 MG TABLET PO (07:50)
[2024-01-26] MEDS: Pregabalin 75 MG CAPSULE PO (07:50)
[2024-01-26] MEDS: Losartan Potassium 25 MG TABLET PO (07:50)
[2024-01-26] MEDS: amLODIPine Besylate 5 MG TABLET PO (07:51)
[2024-01-26] MEDS: Aspirin Enteric Coated 81 MG TABLET.DR PO (07:51)
[2024-01-26] MEDS: 0.9 % Sodium Chloride Flush 3 ML SYRINGE IVFLUSH (07:51)
--- NOTE | 2024-01-26 08:38 | P.PNVS_ITS ---
Subjective Subjective Date of Service: 01/26/24 Interval history: Beau is doing ok this morning. He is eating, drinking, and sleeping well. He denies any shortness of breath or diff breathing this morning. He continues to endorse pain in his foot and is rubbing the bottom of his foot this morning, he endorses that it is throbbing. Physical Exam Vital Signs: Vital Signs: Last Vital Signs Temp 99.2 F 01/26/24 07:44 Pulse 84 01/26/24 07:46 Resp 18 01/26/24 07:46 BP 175/80 H 01/26/24 03:50 Pulse Ox 93 01/26/24 07:44 O2 Del Method Nasal Cannula 01/26/24 07:44 O2 Flow Rate 2 01/26/24 07:44 BMI result Body Mass Index 30.8 Const: General: comfortable and no acute distress Orienta tion/consciousness: patient oriented x3 HEENT: Ears: hearing grossly normal bilaterally Resp: Effort & Inspection: normal respiratory effort and able to speak in complete sentences Auscultation: clear to auscultation bilaterally Cardio: Rate: regular rate Rhythm: regular rhythm Heart sounds: S1 normal heart sound present and S2 normal heart sound present Bruits: no abdominal aortic bruits, no carotid bruits, no femoral bruits and no renal bruits GI: Palpation (GI): No Abdominal aortic bruit present Neuro: General: patient oriented x3 Cranial nerves: Yes CN's II-XII intact bilaterally Extrem: Other: Foot wrapped this morning, did not take down. Progress Note: A&P Assessment and plan (1) Osteomyelitis: Status: Acute Assessment and Plan: Beau remains stable from a vascular standpoint. We will follow up with him outpatient for further evaluation and treatment. We will continue to monitor. If there are any questions or concerns, please do not hesitate to reach out to us. Time Spent With Patient Time: Total time managing care of this patient today __20__ minutes. Procedures Date of Service Date of Service: 01/26/24 Quality Stroke Does the patient have a stroke diagnosis?: No VTE Prior VTE?: No VTE Risk Level:: Medical - moderate - high VTE Device Contraindication: Treatment Not Indicated VTE Drug Contraindication: N/A - Med Ordered
[2024-01-26 08:54] VITALS: BP 182/78
[2024-01-26 09:26] VITALS: BP 154/68
--- NOTE | 2024-01-26 10:27 | P.DS_ITS ---
DS: Providers Provider Date of Service: 01/26/24 Date of admission: 01/24/24 13:49 Date of discharge: 01/26/24 Primary care physician: Shayla Augustine NP Consults: 01/24/24 13:10 Consult to Nephrology Routine Consulting Provider: [facility] Reason for consultation: pt on dialysis MWF Has provider been notified: No 01/24/24 13:46 Consult to Thoracic Surgery Routine Consulting Provider: Rohith Valdes Reason for consultation: recurrent vs chronic R pleural effusion Has provider been notified: No 01/25/24 07:46 Consult to Vascular Surgery Routine Consulting Provider: [facility] [place] [facility] Reason for consultation: pvd, rle DS: Diagnosis Discharge Diagnosis (1) Osteomyelitis: Status: Acute DS: Summary Hospital Course Hospital Course: from initial hpi: 68-year-old Divehi-speaking male with a past medical history significant for ESRD on HD MWF on transplant list (Dr. Shea) last went today, T2DM on insulin, HTN, HLD, ROBERT on CPAP, GERD, grade 3 diastolic heart failure (EF 35%), on O2 2 L via NC at home, who presented to the ED today with worsening shortness of breath with exertion and continued right foot pain, worsening. He was recently seen on 01/07 for right foot pain and possible cellulitis versus osteomyelitis, x-ray was negative and he was sent home with doxycycline and Keflex. He reports he completed the treatment however his pain has persisted and worsened. He now rates the pain a 10/10 constantly. His shortness of breath has been worsening over the past week. He denies any cough or production. He also denies lower extremity edema, abdominal pain or chest pain. No recent sick contacts. No fever, chills, nausea or vomiting. Has a history of chronic right lower lung pleural effusion for which she had a chest tube placed on 11/28/2023. Recently discharged from the hospital on 12/07/2023 for recurrent right pleural effusion, pneumonia, accelerated hypertension and leg weakness. hospital course: Patient was admitted for acute on chronic systolic and diastolic CHF which resolved with hemodialysis. He was also noted to have recurrent right moderate pleural effusion was seen by thoracic who recommended thoracentesis, on imaging prior to thoracentesis effusion appears much smaller and was therefore deferred at this time, patient should have repeat CT scan as outpatient to confirm resolution. Four right lower extremity dry gangrene with peripheral vascular disease was seen by vascular who recommended outpatient follow-up for vascular studies and continued aspirin statin, patient will also continue doxycycline for 1 week to treat associated cellulitis for end-stage renal disease was continued on hemodialysis. For diabetes was continued on basal bolus insulin. For uncontrolled hypertension was continued on carvedilol, doxazosin, hydralazine, losartan. For ROBERT was continued on CPAP at night. Patient is feeling better will be discharged home Time Attestation Discharge Coordination Time (in mins): 35 Quality: Safe Use of Opioids Does Pt have an Active Cancer Diagnosis on the Problem List?: No Quality: Stroke Does the patient have a stroke diagnosis?: No Physical Exam Vital Signs: Vital Signs: Last Vital Signs Temp 99.2 F 01/26/24 07:44 Pulse 84 01/26/24 07:46 Resp 18 01/26/24 07:46 BP 154/68 H 01/26/24 09:26 Pulse Ox 93 01/26/24 07:44 O2 Del Method Nasal Cannula 01/26/24 07:44 O2 Flow Rate 2 01/26/24 07:44 BMI result Body Mass Index 30.8 Const: General: comfortable and no acute distress Orientation/consciousness: patient oriented x3 HEENT: Ears: hearing grossly normal bilaterally Resp: Effort & Inspection: normal respiratory effort and able to speak in complete sentences Auscultation: clear to auscultation bilaterally Cardio: Rate: regular rate Rhythm: regular rhythm Heart sounds: S1 normal heart sound present and S2 normal heart sound present Bruits: no abdominal aortic bruits, no carotid bruits, no femoral bruits and no renal bruits GI: Palpation (GI): No Abdominal aortic bruit present Neuro: General: patient oriented x3 Cranial nerves: Yes CN's II-XII intact bilaterally Extrem: Other: Foot wrapped this morning, did not take down. DS: Data Data Completed and Pending Completed studies during hospitalization [Text1]: Procedures Drainage of Right Pleural Cavity with Drainage Device, Percutaneous Approach (11/28/23) Drainage of Right Pleural Cavity, Percutaneous Approach (04/10/23) Introduction of Other Therapeutic Substance into Pleural Cavity, Percutaneous Approach (09/30/23) Introduction of Other Thrombolytic into Pleural Cavity, Percutaneous Approach (09/30/23) Performance of Urinary Filtration, Intermittent, Less than 6 Hours Per Day (11/28/23) Labs on day of discharge: Laboratory Results - last 24 hr 01/25/24 01/25/24 01/25/24 11:13 14:52 16:26 WBC 6.3 RBC 4.44 L Hgb 10.3 L Hct 33.4 L MCV 75.2 L MCH 23.2 L MCHC 30.8 L RDW 15.6 Plt Count 144 L MPV Not Reportable Immature Gran % (Auto) 0.3 Neut % (Auto) 71.2 Lymph % (Auto) 7.9 L [place] % (Auto) 16.2 H Eos % (Auto) 3.6 Baso % (Auto) 0.8 Lymph # (Auto) 0.5 L [place] # (Auto) 1.0 Eos # (Auto) 0.2 Baso # (Auto) 0.1 Abs Immat Gran (auto) 0.02 Absolute Neuts (auto) 4.5 Absolute Nucleated RBC 0.000 Nucleated RBC % (auto) 0.0 ESR 29 H Sodium 140 Potassium 4.9 D Chloride 103 Carbon Dioxide 21 L Anion Gap 21 H BUN 48 H Creatinine 8.33 H* Estim Creat Clear Calc 8.2 Estimated GFR 6 POC Glucose 126 H 111 Random Glucose 132 H Fasting Glucose Calcium 8.4 D Magnesium 1.7 C-Reactive Protein 01/25/24 01/26/24 01/26/24 20:44 05:47 05:47 WBC 5.7 Cancelled RBC 4.23 L Hgb Hct MCV MCH MCHC RDW Plt Count MPV Immature Gran % (Auto) Neut % (Auto) Lymph % (Auto) [place] % (Auto) Eos % (Auto) Baso % (Auto) Lymph # (Auto) [place] # (Auto) Eos # (Auto) Baso # (Auto) Abs Immat Gran (auto) Absolute Neuts (auto) Absolute Nucleated RBC Nucleated RBC % (auto) ESR Sodium Potassium Chloride Carbon Dioxide Anion Gap BUN Creatinine Estim Creat Clear Calc Estimated GFR POC Glucose 164 H Random Glucose Fasting Glucose Calcium Magnesium C-Reactive Protein 01/26/24 01/26/24 01/26/24 05:47 05:47 05:47 WBC RBC Cancelled Hgb 9.9 L Cancelled Hct 32.0 L Cancelled MCV 75.7 L MCH MCHC RDW Plt Count MPV Immature Gran % (Auto) Neut % (Auto) Lymph % (Auto) [place] % (Auto) Eos % (Auto) Baso % (Auto) Lymph # (Auto) [place] # (Auto) Eos # (Auto) Baso # (Auto) Abs Immat Gran (auto) Absolute Neuts (auto) Absolute Nucleated RBC Nucleated RBC % (auto) ESR Sodium Potassium Chloride Carbon Dioxide Anion Gap BUN Creatinine Estim Creat Clear Calc Estimated GFR POC Glucose Random Glucose Fasting Glucose Calcium Magnesium C-Reactive Protein 01/26/24 01/26/24 01/26/24 05:47 05:47 05:47 WBC RBC Hgb Hct MCV Cancelled MCH 23.4 L Cancelled MCHC 30.9 L Cancelled RDW 15.5 Plt Count MPV Immature Gran % (Auto) Neut % (Auto) Lymph % (Auto) [place] % (Auto) Eos % (Auto) Baso % (Auto) Lymph # (Auto) [place] # (Auto) Eos # (Auto) Baso # (Auto) Abs Immat Gran (auto) Absolute Neuts (auto) Absolute Nucleated RBC Nucleated RBC % (auto) ESR Sodium Potassium Chloride Carbon Dioxide Anion Gap BUN Creatinine Estim Creat Clear Calc Estimated GFR POC Glucose Random Glucose Fasting Glucose Calcium Magnesium C-Reactive Protein 01/26/24 01/26/24 01/26/24 05:47 05:47 05:47 WBC RBC Hgb Hct MCV MCH MCHC RDW Cancelled Plt Count 135 L Cancelled MPV Not Reportable Cancelled Immature Gran % (Auto) 0.5 H Neut % (Auto) 62.2 Lymph % (Auto) 15.2 L [place] % (Auto) 18.6 H Eos % (Auto) 2.8 Baso % (Auto) 0.7 Lymph # (Auto) 0.9 L [place] # (Auto) 1.1 Eos # (Auto) 0.2 Baso # (Auto) 0.0 Abs Immat Gran (auto) 0.03 Absolute Neuts (auto) 3.5 Absolute Nucleated RBC 0.000 Nucleated RBC % (auto) ESR Sodium Potassium Chloride Carbon Dioxide Anion Gap BUN Creatinine Estim Creat Clear Calc Estimated GFR POC Glucose Random Glucose Fasting Glucose Calcium Magnesium C-Reactive Protein 01/26/24 01/26/24 01/26/24 05:47 05:47 07:11 WBC RBC Hgb Hct MCV MCH MCHC RDW Plt Count MPV Immature Gran % (Auto) Neut % (Auto) Lymph % (Auto) [place] % (Auto) Eos % (Auto) Baso % (Auto) Lymph # (Auto) [place] # (Auto) Eos # (Auto) Baso # (Auto) Abs Immat Gran (auto) Absolute Neuts (auto) Absolute Nucleated RBC Cancelled Nucleated RBC % (auto) 0.0 Cancelled ESR 31 H Sodium 138 Potassium 5.2 H Chloride 100 Carbon Dioxide 22 Anion Gap 21 H BUN 62 H Creatinine 9.70 H* Estim Creat Clear Calc 7.1 Estimated GFR 5 POC Glucose 52 L* Random Glucose 70 Fasting Glucose 70 Calcium 8.2 L Magnesium 1.7 C-Reactive Protein 9.16 H 01/26/24 07:27 WBC RBC Hgb Hct MCV MCH MCHC RDW Plt Count MPV Immature Gran % (Auto) Neut % (Auto) Lymph % (Auto) [place] % (Auto) Eos % (Auto) Baso % (Auto) Lymph # (Auto) [place] # (Auto) Eos # (Auto) Baso # (Auto) Abs Immat Gran (auto) Absolute Neuts (auto) Absolute Nucleated RBC Nucleated RBC % (auto) ESR Sodium Potassium Chloride Carbon Dioxide Anion Gap BUN Creatinine Estim Creat Clear Calc Estimated GFR POC Glucose 76 Random Glucose Fasting Glucose Calcium Magnesium C-Reactive Protein Preliminary micro results at discharge 01/24/24 13:13 Blood Culture - Preliminary Blood - Venous No growth after 24 hours. 01/24/24 13:08 Blood Culture - Preliminary Blood - Venous No growth after 24 hours. Discharge Plan Discharge Anticipated Discharge Date/Time: 01/26/24 10:21 Patient Disposition: Home, Self-Care Discharge Diagnosis: dry gangrene, effusion, chf Referrals: Shayla Augustine NP [Primary Care Provider] - 1 Week Baltazar Cannon MD [Physician] - 1 Week Discharge Medications: New doxycycline hyclate 100 mg tablet 100 mg PO BID Qty: 14 0RF Continued (DME) PleurX catheter drainage kits 1000cc kits See Rx Instructions .Route .MEDSUPPLY Qty: 10 6RF Rx Instructions: As directed atorvastatin 40 mg tablet 40 mg PO DAILY ipratropium-albuterol 0.5 mg-3 mg(2.5 mg base)/3 mL solution for nebulization 3 ml INHALATION QID PRN (Reason: Wheezing) sennosides-docusate sodium [Senna-Time S] 8.6-50 mg tablet 1 tab PO DAILY PRN (Reason: Constipation) allopurinol 100 mg tablet 100 mg PO MOWEFR@1600 Rx Instructions: GIVE AFTER DIALYSIS furosemide 80 mg tablet 80 mg PO DAILY omeprazole 20 mg capsule,delayed release(DR/EC) 20 mg PO DAILY@0630 doxazosin 4 mg tablet 4 mg PO BEDTIME albuterol sulfate 90 mcg/actuation HFA aerosol inhaler 2 puff INHALATION Q4H PRN (Reason: Shortness Of Breath) carvedilol 6.25 mg Tablet 6.25 mg PO BID Qty: 60 0RF Protocol: Hold for SBP/HR < HOLD for SBP < : 90 HOLD for HR < : 60 losartan 25 mg Tablet 25 mg PO DAILY Qty: 90 0RF Protocol: Hold for SBP< HOLD for SBP < : 90 fluticasone propionate 50 mcg/actuation [place],Suspension 1 spray intranasal BID Qty: 16 0RF Velphoro 500 mg tablet,chewable 500 mg PO TID Trelegy Ellipta 200-62.5-25 mcg blister with device 1 ea INHALATION DAILY hydralazine 25 mg tablet 25 mg PO TID insulin lispro 100 unit/mL insulin pen 1 sliding scale dose subcut TIDAC insulin glargine [Lantus Solostar U-100 Insulin] 100 unit/mL (3 mL) insulin pen 22 unit subcut BEDTIME aspirin 81 mg tablet,delayed release (DR/EC) 81 mg PO DAILY pregabalin 75 mg capsule 75 mg PO DAILY Discharge Orders: Discharge Order (Routine); Ordered 01/26/24 Ordered By: Jules Reddy Diet: Advance to usual diet Activity on Discharge: As tolerated Stand Alone Forms: Patient Portal Discharge page Print Language: Divehi Care Plan Goals: Recovery Health Concerns: Dry gangrene, peripheral vascular disease Plan of Treatment: Continue doxycycline, follow up with Dr. Cannon next week Assessment: See above
--- NOTE | 2024-01-26 10:28 | MHC.CM.PN ---
Per MD rounds patient is ready to discharge today. He will resume HD @ [facility] The facility has been notified that the patient will resume HD on Monday01/29/24. [facility] home care will resume services. They have been notified of the discharge today. Patient will discharge to home with his son providing transportation, after HD @ [facility] today.
--- NOTE | 2024-01-26 10:45 | MHC.CM.PN ---
Addendum entered by Xochitl Hoff 01/26/24 10:47: Patients sons have been notified that patient is discharged today. Sons will provide transportation home. They will pick the patient up after HD today, 2pm. Original Note: IMM 01/26/24 Male DX HF exacerbation Per MD rounds discharge today. Notified [facility] and [facility]
[2024-01-26 12:24] LABS: Glucose, Whole Blood 74 mg/dL (60-115)
[2024-01-29 08:23] LABS: CRP High Sensitivity >20.0 mg/L
[2024-01-29 08:29] LABS: CRP High Sensitivity >20.0 mg/L
== END 2024-01-26 14:30 | disposition home health service (06) | DRG 291 ==
LOC: HO.ED 11:19 → HO.EDOVER 14:07 → HO.IMC 19:11
PROVIDERS: Physician Assistant Medical; Admitting Provider Physician Assistant; Emergency Provider Emergency Medicine; PCP Nurse Practitioner; Visit Provider Internal Medicine
DX: I13.2 Hypertensive heart and chronic kidney disease with heart failure and with stage 5 chronic kidney disease, or end stage renal disease (principal); I50.43 Acute on chronic combined systolic (congestive) and diastolic (congestive) heart failure; N18.6 End stage renal disease; E11.52 Type 2 diabetes mellitus with diabetic peripheral angiopathy with gangrene; J98.11 Atelectasis; J90 Pleural effusion, not elsewhere classified; G47.33 Obstructive sleep apnea (adult) (pediatric); Z76.82 Awaiting organ transplant status; E11.22 Type 2 diabetes mellitus with diabetic chronic kidney disease; E78.5 Hyperlipidemia, unspecified; Z91.158 Patient's noncompliance with renal dialysis for other reason; Z20.822 Contact with and (suspected) exposure to COVID-19; Z99.81 Dependence on supplemental oxygen; Z99.2 Dependence on renal dialysis; Z79.4 Long term (current) use of insulin; Z79.82 Long term (current) use of aspirin; Z79.899 Other long term (current) drug therapy
CPT/HCPCS: 0241U; 36415; 71046; 71250; 73630; 80048; 80053; 82947; 83605; 83735; 83880; 85025; 85652; 86140; 86141; 87040; 90999; 93926; 94640; 99222; 99285; J0360; J1171; J1644; J1920; J2543; J3370

== ENCOUNTER → 2024-01-24 11:42 | Outpatient (BNV) | payer MEDICARE, SELFPAY | PROVIDERS: Emergency Provider Emergency Medicine; PCP Nurse Practitioner; Visit Provider Radiology Diagnostic Radiology | DX: I70.201 Unspecified atherosclerosis of native arteries of extremities, right leg (principal) | CPT/HCPCS: 73630 ==

== ENCOUNTER 2024-01-24 13:49 | Outpatient (BNV) | payer MEDICARE, SELFPAY | END 2024-01-25 08:39 | PROVIDERS: Admitting Provider Physician Assistant; Emergency Provider Emergency Medicine; PCP Nurse Practitioner; Visit Provider Radiology Diagnostic Radiology | DX: J90 Pleural effusion, not elsewhere classified (principal) | CPT/HCPCS: 71250 ==

== ENCOUNTER → 2024-01-24 13:49 | Outpatient (BNV) | payer MEDICARE, SELFPAY | PROVIDERS: Admitting Provider Physician Assistant; Emergency Provider Emergency Medicine; PCP Nurse Practitioner; Visit Provider Physician Assistant | DX: I50.42 Chronic combined systolic (congestive) and diastolic (congestive) heart failure (principal); E11.22 Type 2 diabetes mellitus with diabetic chronic kidney disease; N18.6 End stage renal disease; Z99.2 Dependence on renal dialysis; J90 Pleural effusion, not elsewhere classified | CPT/HCPCS: 99223; 99233; 99239 ==

== ENCOUNTER → 2024-01-24 13:49 | Outpatient (BNV) | payer MEDICARE, SELFPAY | PROVIDERS: Admitting Provider Physician Assistant; Emergency Provider Emergency Medicine; PCP Nurse Practitioner; Visit Provider Surgery | DX: J98.19 Other pulmonary collapse (principal) | CPT/HCPCS: 99222 ==

== ENCOUNTER → 2024-01-24 13:49 | Outpatient (BNV) | payer MEDICARE, SELFPAY | PROVIDERS: Admitting Provider Physician Assistant; Emergency Provider Emergency Medicine; PCP Nurse Practitioner; Visit Provider Physician Assistant Surgical | DX: M86.171 Other acute osteomyelitis, right ankle and foot (principal); I70.201 Unspecified atherosclerosis of native arteries of extremities, right leg | CPT/HCPCS: 99222; 99232 ==

== ENCOUNTER 2024-02-02 11:03 | Inpatient (IN) | payer MEDICARE, SELFPAY ==
[2024-02-02] VITALS (9 sets, daily range): BP systolic 176–216; BP diastolic 80–151; PULSE 65–85; RESP 18–20; TEMP 36.4; O2SAT 92–100; BMI 30.2
--- NOTE | ~2024-02-02 | XR_ITS ---
EXAMINATION: XR FOOT, RIGHT CLINICAL INFORMATION: dry gangrene, wound COMPARISON: 01/24/2024 TECHNIQUE: AP, lateral, and oblique views of the right foot. FINDINGS: Extensive vascular calcifications. No acute fracture or malalignment. Decreased mineralization a questionable erosion at the medial aspect of the tuft of the 3rd distal phalanx. Clinical correlate. No soft tissue gas. No fracture. XR/XR foot RT min 3V IMPRESSION: Questionable erosion at the medial aspect of the tuft of the 3rd distal phalanx. Correlate for evidence of osteomyelitis. No soft tissue gas. Extensive vascular calcifications. Electronically signed by: Richard Echevarria MD 02/02/2024 01:38 PM EST
--- NOTE | 2024-02-02 11:21 | ED.LOWEXIN ---
HPI - Extremity Injury (Lower) General Chief Complaint: Wound/Laceration Stated Complaint: r leg pain Time Seen by Provider: 02/02/24 16:02 History of Present Illness ED Provider: Evan HILL Narrative: The patient is a 68-year-old male who has been having problems with wounds on the toes of his right foot for a few weeks. Came to the emergency department earlier this month on January 07. He had signs of an infection at the tip of the right great toe and the tip of the right 3rd toe. He was prescribed cephalexin and doxycycline for 7 days. His foot worsened and he returned to the emergency room 9 days ago on January 23. At that visit he was hospitalized. He was seen by vascular surgery. He had a duplex scan of the lower extremity arteries. This showed hemodynamically significant right lower extremity infrapopliteal arterial disease. He was in the hospital for 2 days and ultimately discharged 1 week ago on January 25. He was discharged on another 7 days of doxycycline with a plan to follow up with Dr. Cannon as an outpatient. The patient returns today because he feels his toes are getting worse. He is having more pain at both toes. He feels that he has more drainage from the area of the distal right great toe. He has finished the doxycycline that was prescribed and feels he is getting worse. Related Data Home Medications ?Medication ?Instructions ?Recorded ?Confirmed albuterol sulfate 90 mcg/actuation 2 puff inhalation Q4H PRN 04/19/22 02/02/24 aerosol inhaler Shortness Of Breath allopurinol 100 mg tablet 100 mg PO MOWEFR@1600 04/19/22 02/02/24 atorvastatin 40 mg tablet 40 mg PO DAILY 04/19/22 02/02/24 doxazosin 4 mg tablet 4 mg PO BEDTIME 04/19/22 02/02/24 furosemide 80 mg tablet 80 mg PO DAILY 04/19/22 02/02/24 ipratropium 0.5 mg-albuterol 3 mg 3 ml inhalation QID PRN Wheezing 04/19/22 02/02/24 (2.5 mg base)/3 mL nebulization soln omeprazole 20 mg capsule,delayed 20 mg PO DAILY@0630 04/19/22 02/02/24 release sennosides 8.6 mg-docusate sodium 1 tab PO DAILY PRN Constipation 04/19/22 02/02/24 50 mg tablet (Senna-Time S) insulin glargine 100 unit/mL (3 22 unit subcut BEDTIME 04/10/23 02/02/24 mL) subcutaneous pen (Lantus Solostar U-100 Insulin) insulin lispro 100 unit/mL 1 sliding scale dose subcut TIDAC 04/10/23 02/02/24 subcutaneous pen aspirin 81 mg tablet,delayed 81 mg PO DAILY 06/20/23 02/02/24 release pregabalin 75 mg capsule 75 mg PO DAILY 06/20/23 02/02/24 fluticasone fur. 200 mcg-umeclid 1 ea inhalation DAILY 01/24/24 02/02/24 62.5 mcg-vilant 25 mcg inhalat.powder (Trelegy Ellipta) hydralazine 25 mg tablet 25 mg PO TID 01/24/24 02/02/24 sucroferric oxyhydroxide 500 mg 500 mg PO TID 01/24/24 02/02/24 chewable tablet (Velphoro) Previous Rx's ?Medication ?Instructions ?Recorded carvedilol 6.25 mg tablet 6.25 mg PO BID #60 tabs 10/03/23 losartan 25 mg tablet 25 mg PO DAILY #90 tabs 10/03/23 PleurX catheter drainage kits #10 ea 10/17/23 fluticasone propionate 50 1 spray intranasal BID #16 grams 12/07/23 mcg/actuation nasal spray,suspension doxycycline hyclate 100 mg tablet 100 mg PO BID #14 tabs 01/26/24 oxycodone 5 mg tablet 5 mg PO Q4H PRN Pain, 01/26/24 Moderate(Pain Scale 4-6) #20 tabs Allergies Allergy/AdvReac Type Severity Reaction Status Date / Time No Known Allergies Allergy Verified 02/02/24 11:29 [facility] Past Medical History Medical History Chronic combined systolic and diastolic CHF (congestive heart failure) ESRD on dialysis Acute on chronic systolic and diastolic heart failure, NYHA class 3 HFrEF (heart failure with reduced ejection fraction) ESRD (end stage renal disease) Anemia ESRD (end stage renal disease) Chronic pericardial effusion Arthritis Asthma Restless leg syndrome Occlusive thrombus Pulmonary edema ROBERT (obstructive sleep apnea) Type 2 diabetes mellitus Hyperlipidemia Hypertension A-V fistula Falling Surgical History Recurrent pleural effusion Pleural effusion on right (07/13/23) History of surgery H/O colonoscopy Family History Family History Father No problems noted. Mother No problems noted. Social History Social History Household Members: Family Household Members Other:: son Housing: House Do you presently have visiting nurse or other home services: No Alcohol intake: never Comment: counts correct Patient Tobacco Use Status: Former Tobacco user Tobacco use type: Cigarette Smoked in Last 30 Days: No Second Hand Smoke Exposure: No Use of substances other than those prescribed or required for medical reasons: No Advance Directives: Yes Advance Directives on File: Yes Advance Directives Date on File: 10/04/23 Do you have a plan to hurt others: No Plan service: No Physical Exam Vital Signs: Vital Signs: Last Vital Signs Temp 97.6 F 02/02/24 15:35 Pulse 69 02/02/24 20:00 Resp 18 02/02/24 20:00 BP 176/101 H 02/02/24 20:00 Pulse Ox 99 02/02/24 20:00 O2 Del Method Nasal Cannula 02/02/24 20:00 O2 Flow Rate 2 02/02/24 20:00 BMI result Body Mass Index 30.2 Const: Other: The patient is a somewhat chronically ill-appearing 68-year-old. He looks uncomfortable. HEENT: Other: Face is symmetrical. Mucous membranes moist. Eyes: Other: Pupils are round equal, conjunctivae clear Neck: Other: No definite JVD Resp: Effort & Inspection: normal respiratory effort Auscultation: clear to auscultation bilaterally Cardio: Rate: regular rate Rhythm: regular rhythm Heart sounds: S1 normal heart sound present and S2 normal heart sound present GI: Other: Abdomen is soft and nontender Skin: Other: The patient has blackening of the distal portions of the right great toe and middle toe. There is some skin breakdown near the distal toenail of the right great toe from which I can express some dark purulent material. Neuro: Other: The patient is awake and alert. Cranial nerves are grossly intact. He moves his extremities symmetrically. Extrem: Other: The patient has obvious illness at the tip of his right great toe and the right 3rd toe. There is blackening of the tissues distally. There is erythema of the proximal phalanges. At the distal portion of the right great toe there is tissue breakdown with some moist brown drainage. The patient is quite tender. Course Course Course Narrative: This is an RME: Additional HPI, ROS, PE not included below will be deferred to primary provider. RME assessment and note performed by: Rahel Montes De Oca PA-C This is a 89-wexp-lip-male, Guatemalan-speaking male with a past medical history significant for ESRD on HD MWF on transplant list (Dr. Shea) last went today, T2DM on insulin, HTN, HLD, ROBERT on CPAP, GERD, grade 3 diastolic heart failure (EF 35%), on O2 2 L via NC at home, who presented to the ED today with concerns for worsening right foot pain. Patient was recently admitted on 01/24/2024 for acute on chronic systolic and diastolic CHF which resolved with hemodialysis. He was also treated for dry gangrene with peripheral vascular disease, and was told to follow-up outpatient. He was taking prescribed doxycycline to treat associated cellulitis however states that he has been taking this and believes that the wounds and pain is only worsening. Right foot, with right great toe dry gangrene, with surrounding cellulitis, and 3rd toe with dry gangrene as well. Blood pressure 193/151 he has no chest pain or shortness of breath. Will tried to get patient in the main emergency department as soon as possible. Charge nurse notified. Plan: Labs, further ER eval needed Medications Administered Discontinued Medications Generic Name Dose Route Start Last Admin Trade Name Freq PRN Reason Stop Dose Admin Piperacillin Sod/Tazobactam 100 mls @ 200 mls/hr 02/02/24 17:44 02/02/24 18:18 Sod 4.5 gm/ Sodium Chloride IV 02/02/24 18:13 200 mls/hr ONCE ONE Administration Vancomycin HCl 1,500 mg/ 500 mls @ 333.333 mls/hr 02/02/24 18:00 02/02/24 19:48 Sodium Chloride IV 02/02/24 19:29 333.33 mls/hr ONCE ONE Administration Labetalol HCl 10 mg 02/02/24 19:07 02/02/24 19:25 Labetalol Hcl 100 Mg/20 Ml Vial IVPUSH 02/02/24 19:08 10 mg ONCE ONE Administration Oxycodone HCl 5 mg 02/02/24 16:22 02/02/24 16:38 Oxycodone Hcl Immed Release 5 Mg Tablet PO 02/02/24 16:23 5 mg ONCE ONE Administration Oxycodone HCl 5 mg 02/02/24 18:26 02/02/24 18:33 Oxycodone Hcl Immed Release 5 Mg Tablet PO 02/02/24 18:27 5 mg ONCE ONE Administration Medical Decision Making Medical Decision Making [facility] Narrative: The patient is a 68-year-old male who was a dialysis patient. He is also diabetic. He has been having problems with his right great toe and middle toe for about a month. He has been on 2 courses of antibiotics. I feel the toes are worsening. Additionally the patient is quite hypertensive. Had dialysis today. I was able to swab some drainage from the tip of the right great toe that seemed darkly purulent. This was sent for a culture. The patient was started on Zosyn and vancomycin. He was also quite hypertensive and was given IV labetalol. He will be admitted to the hospitalist service for further care. Lab Data 02/02/24 12:57 02/02/24 12:57 Labs: Lab Results 02/02/24 02/02/24 Range/Units 12:57 16:47 WBC 8.1 (4.8-10.8) X10*3/uL RBC 4.86 (4.60-5.80) X10*6/uL Hgb 11.2 L (14.0-18.0) g/dl Hct 36.1 L (42.0-52.0) % MCV 74.3 L (80.0-98.0) fL MCH 23.0 L (27.0-33.0) pg MCHC 31.0 (31.0-36.0) g/dl RDW 15.5 (11.0-16.0) % Plt Count 160 (160-400) X10*3/uL MPV Not Reportable Immature Gran % (Auto) 0.7 H (0.0-0.4) % Neut % (Auto) 77.6 H (45-73) % Lymph % (Auto) 10.5 L (20-40) % [place] % (Auto) 9.1 (2-11) % Eos % (Auto) 2.0 (0-4) % Baso % (Auto) 0.1 (0-2) % Lymph # (Auto) 0.9 L (1.2-4.9) X10*3/uL [place] # (Auto) 0.7 (0.1-1.2) X10*3/uL Eos # (Auto) 0.2 (0.0-0.4) X10*3/uL Baso # (Auto) 0.0 (0.0-0.2) X10*3/uL Abs Immat Gran (auto) 0.06 H (0.00-0.03) X10*3/uL Absolute Neuts (auto) 6.3 (2.0-8.3) x10*3/uL Absolute Nucleated RBC 0.000 (0.0-0.012) X10*3/uL Nucleated RBC % (auto) 0.0 (0.0-0.2) /100WBC ESR 34 H (0-15) MM/HR Sodium 139 (135-145) mmol/L Potassium 3.7 D (3.3-5.1) mmol/L Chloride 101 (96-108) mmol/L Carbon Dioxide 26 (22-29) mmol/L Anion Gap 16 (12-20) BUN 21 H (9-16) mg/dL Creatinine 5.36 H* (0.5-1.4) mg/dL Estim Creat Clear Calc 11.8 Estimated GFR 11 Random Glucose 161 H (60-115) mg/dL Lactic Acid 0.8 (0.5-2.0) mmol/L Calcium 8.1 L (8.4-10.2) mg/dL Magnesium 1.7 (1.6-2.6) mg/dL Total Bilirubin 0.5 (0.0-1.0) mg/dL AST 22 (5-37) U/L ALT 23 (0-40) U/L Alkaline Phosphatase 150 H (39-117) U/L C-Reactive Protein 7.61 H (< or = 0.50) mg/dL B-Natriuretic Peptide 2902 H (<100) pg/mL Total Protein 7.5 (6.5-8.0) g/dL Albumin 3.9 (3.5-5.0) g/dL Discharge Plan Discharge Clinical Impression: Hypertension, Infection of toe Patient Disposition: Admitted As Inpatient Interventions: Admission Worksheet (ED) Last Done: 02/02/24 20:30 Discharge Date/Time: 02/02/24 21:26
[2024-02-02 13:04] LABS: MANUAL DIFF FLAG NO
[2024-02-02 13:07] LABS: Basophils Percent Auto 0.1 % (0-2); Eosinophils Absolute Auto 0.2 X10*3/uL (0.0-0.4); Hematocrit 36.1 % (42.0-52.0); Hemoglobin 11.2 g/dl (14.0-18.0); Imm Gran Abs Auto 0.06 X10*3/uL (0.00-0.03); Imm Gran Pct Auto 0.7 % (0.0-0.4); Lymphocytes Absolute Auto 0.9 X10*3/uL (1.2-4.9); Lymphocytes Percent Auto 10.5 % (20-40); Mean Corpuscular Volume 74.3 fL (80.0-98.0); Monocytes Absolute Auto 0.7 X10*3/uL (0.1-1.2); Monocytes Percent Auto 9.1 % (2-11); Neutrophils Absolute Auto 6.3 x10*3/uL (2.0-8.3); Neutrophils Percent Auto 77.6 % (45-73); Platelet Count 160 X10*3/uL (160-400); Red Blood Count 4.86 X10*6/uL (4.60-5.80); Red Cell Distribution Width 15.5 % (11.0-16.0); White Blood Count 8.1 X10*3/uL (4.8-10.8)
[2024-02-02 13:22] LABS: Lactic Acid 0.8 mmol/L (0.5-2.0)
[2024-02-02 13:28] LABS: B Type Natriuretic Peptide 2902 pg/mL (<100)
[2024-02-02 13:41] LABS: Alanine Aminotransferase 23 U/L (0-40); Albumin Level 3.9 g/dL (3.5-5.0); Alkaline Phosphatase 150 U/L (39-117); Anion Gap 16 (12-20); Aspartate Amino Transferase 22 U/L (5-37); Bilirubin Total 0.5 mg/dL (0.0-1.0); Blood Urea Nitrogen 21 mg/dL (9-16); Calcium 8.1 mg/dL (8.4-10.2); Carbon Dioxide 26 mmol/L (22-29); Chloride 101 mmol/L (96-108); Creatinine Clr Calc Pharmacy 11.8; Estimated Glomerular Filt Rate 11; Glucose Random 161 mg/dL (60-115); Magnesium 1.7 mg/dL (1.6-2.6); Potassium 3.7 mmol/L (3.3-5.1); Sodium 139 mmol/L (135-145); Total Protein 7.5 g/dL (6.5-8.0)
[2024-02-02 16:34] LABS: C Reactive Protein 7.61 mg/dL (< or = 0.50)
[2024-02-02] MEDS: oxyCODONE HCl Immed Release 5 MG TABLET PO ×2 (16:38→18:33)
--- NOTE | 2024-02-02 16:49 | PC.NURSE ---
Addendum entered by Mya Bowles 02/02/24 18:20: the right arm fistula has actually been removed/ an old site for the fistula Original Note: pt is alert and oriented. skin appropriate for ethnicity, respirations even and unlabored, pt reports about a month ago fell and stubbed his right great toe and third toe, toe is necrotic in appearance, no foul order but pt reports that is has been draining fluids pt is a dialysis patient, port in the right chest and fistula on the right upper arm, pt reports hx of hypertension and taking his medications today but still having very high bp
[2024-02-02 17:29] LABS: Erythrocyte Sedimentation Rate 34 MM/HR (0-15)
[2024-02-02] MEDS: Piperacillin Sodium/Tazobactam 4.5 GM in 0.9 % Sodium Chloride 100 ML IV (18:18)
[2024-02-02] MEDS: Labetalol HCL 100 MG/20 ML VIAL 10 MG IVPUSH (19:25)
[2024-02-02] MEDS: vancomycin HCL 1,500 MG in 0.9 % Sodium Chloride 500 ML 333.33 MG IV (19:48)
--- NOTE | 2024-02-02 20:11 | PHA.MEDREC ---
Addendum entered by Nora Norman RPh 02/02/24 20:41: Med rec was reviewed by [facility]. Original Note: Pharmacy Consult ? Medication Reconciliation Pharmacy has completed the medication reconciliation. Patient and son are a poor historian. Patient was just discharged From [facility] 01/26/24. Utilized discharge packet and claims to confirm med list.
--- NOTE | 2024-02-02 21:05 | P.HPHOSP_ITS ---
History of Present Illness Date of Service: 02/02/24 Attending physician on admission: [facility] Chief Complaint: Worsening toe infection Pt is a 68-year-old Cook Islander-speaking male with a PMH significant for?ESRD on HD M/W/F last dialyzed earlier today, insulin-dependent type 2 diabetes, peripheral vascular disease, HFrEF (EF35%), HTN, HLD, chronically on 2L home O2, GERD, and ROBERT on CPAP who presents to the ED with?worsening right great and 3rd toe infection. Patient was recently discharged from the hospital 7 days prior on 01/25 after being admitted and treated for acute on chronic systolic and diastolic CHF which resolved with hemodialysis. Was also seen by vascular for dry gangrene secondary to peripheral vascular disease on right foot. Patient was discharged on doxycycline 1 week and recommended for outpatient follow-up for vascular studies. Patient reports that despite completing course of p.o. antibiotics earlier this morning the infection in his toe has gotten worse. Complains is foot is more painful, the redness has advanced, and he has had purulent discharge from great toe. Denies fever, chills, nausea, vomiting, abdominal pain. No difficulty breathing or shortness of breath. Denies chest pain/pressure, palpitations. No headache or acute vision changes. Patient reports he is compliant with all of his home medications. In the ED pt was persistently hypertensive as high as 216/99, vitals otherwise WNL. Labs were significant for elevated CRP of 7.61, ESR 34, and BNP 2902 (around baseline). No leukocytosis. Stable H&H. No significant electrolyte abnormalities. Creatinine 5.36, around baseline. Right foot x-ray found questionable erosion at the medial aspect of the 3rd distal phalanx, concerning for possible osteomyelitis. Pt was treated with oxycodone, labetalol 10 mg IV, Zosyn, and vancomycin. Pt will be admitted to the hospital for treatment and further evaluation of right foot cellulitis that failed outpatient therapy with question of osteomyelitis as well as hypotensive urgency. Review of Systems 2 Review of Systems: Negative except for that which is stated in the [facility] Medical History Chronic combined systolic and diastolic CHF (congestive heart failure) ESRD on dialysis Acute on chronic systolic and diastolic heart failure, NYHA class 3 HFrEF (heart failure with reduced ejection fraction) ESRD (end stage renal disease) Anemia ESRD (end stage renal disease) Chronic pericardial effusion Arthritis Asthma Restless leg syndrome Occlusive thrombus Pulmonary edema ROBERT (obstructive sleep apnea) Type 2 diabetes mellitus Hyperlipidemia Hypertension A-V fistula Falling Family History Father No problems noted. Mother No problems noted. Surgical History Recurrent pleural effusion Pleural effusion on right (07/13/23) History of surgery H/O colonoscopy Social History Household Members: Family Household Members Other:: son Housing: House Do you presently have visiting nurse or other home services: No Alcohol intake: never Comment: counts correct Patient Tobacco Use Status: Former Tobacco user Tobacco use type: Cigarette Smoked in Last 30 Days: No Second Hand Smoke Exposure: No Use of substances other than those prescribed or required for medical reasons: No Advance Directives: Yes Advance Directives on File: Yes Advance Directives Date on File: 10/04/23 Do you have a plan to hurt others: No Plan service: No Meds Allergies Allergy/AdvReac Type Severity Reaction Status Date / Time No Known Allergies Allergy Verified 02/02/24 11:29 Active Medications: Current Medications Acetaminophen (Acetaminophen 325 Mg Tablet) 650 mg PO Q6H PRN PRN Reason: Pain, Mild (Pain Scale 1-3), fever or headache Benzonatate (Benzonatate 100 Mg Capsule) 100 mg PO TID PRN PRN Reason: Cough Calcium Carbonate (Calcium Carbonate 750 Mg Tab.Chew) 750 mg PO Q4H PRN PRN Reason: Heartburn Heparin Sodium (Porcine) (Heparin Sodium,Porcine 5,000 Unit/Ml Vial) 5,000 unit SUBCUT Q8H NASREEN Cefepime HCl 0.5 gm/ Sodium (Chloride) 50 mls @ 100 mls/hr IV Q24H NASREEN Vancomycin HCl 500 mg/ Sodium (Chloride) 110 mls @ 110 mls/hr IV MoWeFr@1900 NASREEN Magnesium Hydroxide (Milk Of Magnesia 30 Ml Oral.Susp) 30 ml PO DAILY PRN PRN Reason: Constipation Melatonin (Melatonin 3 Mg Tablet) 6 mg PO BEDTIME PRN PRN Reason: Insomnia Ondansetron HCl (Ondansetron Hcl 4 Mg/2 Ml Vial) 4 mg IVPUSH Q8H PRN PRN Reason: Nausea and Vomiting Oxycodone HCl (Oxycodone Hcl Immed Release 5 Mg Tablet) 5 mg PO Q4H PRN PRN Reason: Pain, Severe (Pain Scale 7-10) Pharmacy Consult (Consult Rx Vancomycin Dosing) 1 each MISCELLANE DAILY PRN PRN Reason: Consult order Sodium Chloride (0.9 % Sodium Chloride Flush 3 Ml Syringe) 3 ml IVFLUSH [facility] Medications ?Medication ?Instructions ?Recorded ?Confirmed ?Last Taken ?Type albuterol sulfate 90 mcg/actuation 2 puff inhalation Q4H PRN 04/19/22 02/02/24 Unknown History aerosol inhaler Shortness Of Breath allopurinol 100 mg tablet 100 mg PO MOWEFR@1600 04/19/22 02/02/24 11/27/23 History atorvastatin 40 mg tablet 40 mg PO DAILY 04/19/22 02/02/24 11/27/23 History doxazosin 4 mg tablet 4 mg PO BEDTIME 04/19/22 02/02/24 11/27/23 History furosemide 80 mg tablet 80 mg PO DAILY 04/19/22 02/02/24 11/27/23 History ipratropium 0.5 mg-albuterol 3 mg 3 ml inhalation QID PRN Wheezing 04/19/22 02/02/24 Unknown History (2.5 mg base)/3 mL nebulization soln omeprazole 20 mg capsule,delayed 20 mg PO DAILY@0630 04/19/22 02/02/24 11/27/23 History release sennosides 8.6 mg-docusate sodium 1 tab PO DAILY PRN Constipation 04/19/22 02/02/24 04/19/22 History 50 mg tablet (Senna-Time S) insulin glargine 100 unit/mL (3 22 unit subcut BEDTIME 04/10/23 02/02/24 11/27/23 History mL) subcutaneous pen (Lantus Solostar U-100 Insulin) insulin lispro 100 unit/mL 1 sliding scale dose subcut TIDAC 04/10/23 02/02/24 11/27/23 History subcutaneous pen aspirin 81 mg tablet,delayed 81 mg PO DAILY 06/20/23 02/02/24 11/27/23 History release pregabalin 75 mg capsule 75 mg PO DAILY 06/20/23 02/02/24 11/27/23 History fluticasone fur. 200 mcg-umeclid 1 ea inhalation DAILY 01/24/24 02/02/24 Unknown History 62.5 mcg-vilant 25 mcg inhalat.powder (Trelegy Ellipta) hydralazine 25 mg tablet 25 mg PO TID 01/24/24 02/02/24 Unknown History sucroferric oxyhydroxide 500 mg 500 mg PO TID 01/24/24 02/02/24 Unknown History chewable tablet (Velphoro) Physical Exam 2 Vital Signs and Narrative: Vital Signs: Last Vital Signs Temp 97.6 F 02/02/24 15:35 Pulse 69 02/02/24 20:00 Resp 18 02/02/24 20:00 BP 176/101 H 02/02/24 20:00 Pulse Ox 99 02/02/24 20:00 O2 Del Method Nasal Cannula 02/02/24 20:00 O2 Flow Rate 2 02/02/24 20:00 BMI result Body Mass Index 30.2 General: AOx3, no acute distress Resp: CTA bilaterally CVS: S1, S2, RRR GI: +BS, NT, no distention Skin: Warm, dry Neuro: Cranial nerves II-XII grossly intact bilaterally. Motor grossly intact bilaterally Extremities: Right foot as pictured below: Psych: Appropriate affect Results Labs 02/02/24 12:57 02/02/24 12:57 Labs: Laboratory Results - last 24 hr 02/02/24 02/02/24 12:57 16:47 MCV 74.3 L MCH 23.0 L MCHC 31.0 RDW 15.5 Plt Count 160 MPV Not Reportable Immature Gran % (Auto) 0.7 H Neut % (Auto) 77.6 H Lymph % (Auto) 10.5 L [place] % (Auto) 9.1 Eos % (Auto) 2.0 Baso % (Auto) 0.1 Lymph # (Auto) 0.9 L [place] # (Auto) 0.7 Eos # (Auto) 0.2 Baso # (Auto) 0.0 Abs Immat Gran (auto) 0.06 H Absolute Neuts (auto) 6.3 Absolute Nucleated RBC 0.000 Nucleated RBC % (auto) 0.0 ESR 34 H Anion Gap 16 Estim Creat Clear Calc 11.8 Estimated GFR 11 Random Glucose 161 H Lactic Acid 0.8 Calcium 8.1 L Magnesium 1.7 Total Bilirubin 0.5 AST 22 ALT 23 Alkaline Phosphatase 150 H C-Reactive Protein 7.61 H B-Natriuretic Peptide 2902 H Total Protein 7.5 Albumin 3.9 Imaging Radiologist's Impressions: Impressions Foot X-Ray 02/02/24 11:28 IMPRESSION: Questionable erosion at the medial aspect of the tuft of the 3rd distal phalanx. Correlate for evidence of osteomyelitis. No soft tissue gas. Extensive vascular calcifications. Electronically signed by: Richard Echevarria MD 02/02/2024 01:38 PM EST RP Assessment and Plan (1) Cellulitis of right foot: Status: Acute (2) Hypertensive urgency: Status: Resolved Plan Pt is a 68-year-old [place] Islander-speaking male with a PMH significant for?ESRD on HD M/W/F last dialyzed earlier today, insulin-dependent type 2 diabetes, peripheral vascular disease, HFrEF (EF35%), HTN, HLD, chronically on 2L home O2, GERD, and ROBERT on CPAP who presents to the ED with?worsening right great and 3rd toe infection. Pt will be admitted to the hospital for treatment and further evaluation of right foot cellulitis that failed outpatient therapy with question of osteomyelitis as well as hypotensive urgency. Right foot cellulitis with ?osteomyelitis Secondary to great and 3rd toe dry gangrene in the setting of peripheral vascular disease Failed outpatient therapy on doxycycline x7 days Right foot x-ray showed questionable erosion at 3rd distal phalanx, CRP 7.61, ESR 34 No sepsis: No tachycardia, tachypnea, fever, or leukocytosis Will treat with vancomycin and cefepime, started 02/02/2024 Vascular surgery consult Hypertensive urgency BP has been as high as 216/99 Patient received labetalol 10 mg IV in the ED Will continue carvedilol, losartan, and doxazosin Labetalol 5 mg IV for SBP>180 Monitor BP ESRD on HD M/W/F Last dialyzed earlier today Follows with Dr. Friedman from [facility] Electrolytes WNL, creatinine at baseline Nephrology consult to establish HD while in the hospital Continue furosemide, doxazosin Follow BMP Insulin-dependent type 2 diabetes Sliding-scale insulin, Lantus Diabetic diet HLD/PAD Continue aspirin, statin Gout Continue allopurinol GERD PPI Full Code Attending:?Dr. Rai DVT Prophylaxis: Heparin Pt will require a hospitalization of at least two nights for treatment of?right foot cellulitis that failed outpatient therapy concerning for possible osteomyelitis as well as hypertensive urgency. Patient will require hospital level care for administration of IV antibiotics, close monitoring of BP, as well as specialist consultation with vascular surgery. Quality Stroke Does the patient have a stroke diagnosis?: No VTE Prior VTE?: No VTE Risk Level:: Medical - moderate - high VTE Device Contraindication: Treatment Not Indicated VTE Drug Contraindication: N/A - Med Ordered
[2024-02-02] MEDS: hydrALAZINE HCl 25 MG TABLET PO (22:18)
[2024-02-02] MEDS: carvediloL 6.25 MG TABLET PO (22:22)
[2024-02-02] MEDS: Doxazosin Mesylate 2 MG TABLET 4 MG PO (22:23)
[2024-02-02] MEDS: Heparin Sodium,Porcine 5,000 UNIT/ML VIAL 5000 UNIT SUBCUT (22:25)
[2024-02-02] MEDS: Insulin Glargine,Hum.rec.anlog 100 UNIT/ML 10 ML VIAL 16 UNIT SUBCUT (22:59)
[2024-02-02 23:42] LABS: Glucose, Whole Blood 171 mg/dL (60-115)
[2024-02-03] VITALS (7 sets, daily range): BP systolic 142–186; BP diastolic 74–86; PULSE 68–74; RESP 12–18; TEMP 36.4–37.1; O2SAT 92–97
[2024-02-03] MEDS: oxyCODONE HCl Immed Release 5 MG TABLET PO ×3 (01:17→20:48)
[2024-02-03] MEDS: Labetalol HCL 100 MG/20 ML VIAL IVPUSH (05:16)
[2024-02-03] MEDS: Heparin Sodium,Porcine 5,000 UNIT/ML VIAL 5000 UNIT SUBCUT ×3 (05:18→20:48)
[2024-02-03] MEDS: Omeprazole 20 MG CAPSULE.DR PO (05:19)
[2024-02-03 07:10] LABS: Glucose, Whole Blood 123 mg/dL (60-115)
--- NOTE | 2024-02-03 07:40 | P.CONNP_ITS ---
History of Present Illness Reason for Consult Consult date: 02/03/24 Chief Complaint Chief complaint: Right foot cellulitis, hypotensive urgency History of Present Illness Narrative: 67-year-old primarily Syriac-speaking male presents for evaluation of shortness of breath He has a history of diabetes, HTN, HLD, ROBERT on CPAP, GERD, grade 3 diastolic heart failure, COPD/asthma, , end-stage renal disease on dialysis Monday, Monday, Monday, DVT on Eliquis, on O2 2 L via NC at home, who presented to the ED with worsening shortness of breath with exertion and continued right foot pain he has h/o cutting short treatments and wt gain PMF Past Medical History Medical History Chronic combined systolic and diastolic CHF (congestive heart failure) ESRD on dialysis Acute on chronic systolic and diastolic heart failure, NYHA class 3 HFrEF (heart failure with reduced ejection fraction) ESRD (end stage renal disease) Anemia ESRD (end stage renal disease) Chronic pericardial effusion Arthritis Asthma Restless leg syndrome Occlusive thrombus Pulmonary edema ROBERT (obstructive sleep apnea) Type 2 diabetes mellitus Hyperlipidemia Hypertension A-V fistula Falling Family History Family History Father No problems noted. Mother No problems noted. Surgical History Surgical History Recurrent pleural effusion Pleural effusion on right (07/13/23) History of surgery H/O colonoscopy Social History Social History Household Members: Children Household Members Other:: son Housing: Apartment Do you presently have visiting nurse or other home services: Yes (daily for BP and POC check) Alcohol intake: never Comment: counts correct Patient Tobacco Use Status: Former Tobacco user Tobacco use type: Cigarette Smoked in Last 30 Days: No Second Hand Smoke Exposure: No Use of substances other than those prescribed or required for medical reasons: No Currently Displaying Signs/Symptoms of Drug Intoxication Withdrawal: No Have you been hit, kicked, punched, or otherwise hurt by someone within the past year? If so, by whom?: No Do you feel safe in your current relationship?: Yes Is there a partner from a previous relationship who is making you feel unsafe now?: No Are you made to feel afraid or neglected: No Advance Directives: Yes Advance Directives on File: Yes Advance Directives Date on File: 10/04/23 Do you have a plan to hurt others: No Plan Recently lost weight without trying: No Eating poorly because of decreased appetite: No Nutrition Risks: No Nutritional Risk Poor oral hygiene: No service: No Meds Allergies Allergy/AdvReac Type Severity Reaction Status Date / Time No Known Allergies Allergy Verified 02/02/24 11:29 Active Medications: Current Medications Acetaminophen (Acetaminophen 325 Mg Tablet) 650 mg PO Q6H PRN PRN Reason: Pain, Mild (Pain Scale 1-3), fever or headache Albuterol Sulfate (Albuterol Sulfate 90 Mcg 8 Gm Inhaler) 2 puff INHALE Q4H PRN PRN Reason: Shortness Of Breath Albuterol/Ipratropium (Albuterol/Iprat 2.5/0.5mg 3 Ml Ampul.Neb) 3 ml INHALE QID PRN PRN Reason: Wheezing Allopurinol (Allopurinol 100 Mg Tablet) 100 mg PO MOWEFR@1600 [facility] Aspirin (Aspirin Enteric Coated 81 Mg Tablet.Dr) 81 mg PO DAILY [facility] Atorvastatin Calcium (Atorvastatin Calcium 40 Mg Tablet) 40 mg PO DAILY [facility] Benzonatate (Benzonatate 100 Mg Capsule) 100 mg PO TID PRN PRN Reason: Cough Calcium Carbonate (Calcium Carbonate 750 Mg Tab.Chew) 750 mg PO Q4H PRN PRN Reason: Heartburn Carvedilol (Carvedilol 6.25 Mg Tablet) 6.25 mg PO BID [facility]; Protocol Last Admin: 02/02/24 22:22 Dose: 6.25 mg Doxazosin Mesylate (Doxazosin Mesylate 2 Mg Tablet) 4 mg PO BEDTIME [facility]; Protocol Last Admin: 02/02/24 22:23 Dose: 4 mg Fluticasone Propionate (Fluticasone Propionate Nasal 16 Gm [place]) 1 spray NOSTRIL-B BID [facility] Fluticasone/Umeclidinium/Vilanterol (Fluticasone/Umeclidinium/Vilanterol 200/62.5/25 Blst.W.Dev) 1 puff INHALE RDAILY [facility] Furosemide (Furosemide 40 Mg Tablet) 80 mg PO DAILY [facility]; Protocol Glucose (Glucose Gel 15 Gm Gel..Gram.) 15 gm PO Q15M PRN; Protocol PRN Reason: per Hypoglycemia Standing Ord. Heparin Sodium (Porcine) (Heparin Sodium,Porcine 5,000 Unit/Ml Vial) 5,000 unit SUBCUT Q8H [facility] Last Admin: 02/03/24 05:18 Dose: 5,000 unit Hydralazine HCl (Hydralazine Hcl 25 Mg Tablet) 25 mg PO TID [facility]; Protocol Last Admin: 02/02/24 22:18 Dose: 25 mg Cefepime HCl 0.5 gm/ Sodium (Chloride) 50 mls @ 100 mls/hr IV Q24H [facility] Vancomycin HCl 500 mg/ Sodium (Chloride) 110 mls @ 110 mls/hr IV MoWeFr@1900 [facility] Dextrose (D10) 250 mls @ 750 mls/hr IV Q15M PRN; Protocol PRN Reason: per Hypoglycemia Standing Ord. Insulin Glargine (Insulin Glargine,Hum.Rec.Anlog 100 Unit/Ml 10 Ml Vial) 16 unit SUBCUT BEDTIME [facility] Last Admin: 02/02/24 22:59 Dose: 16 unit Insulin Human Lispro (Insulin Lispro 100 Unit/Ml 3 Ml Vial) 0 unit SUBCUT QIDACHS [facility]; Protocol Last Admin: 02/03/24 07:33 Dose: Not Given Labetalol HCl (Labetalol Hcl 100 Mg/20 Ml Vial) 5 mg IVPUSH Q4H PRN PRN Reason: SBP >180 Last Admin: 02/03/24 05:16 Dose: 5 mg Losartan Potassium (Losartan Potassium 25 Mg Tablet) 25 mg PO DAILY [facility]; Protocol Magnesium Hydroxide (Milk Of Magnesia 30 Ml Oral.Susp) 30 ml PO DAILY PRN PRN Reason: Constipation Melatonin (Melatonin 3 Mg Tablet) 6 mg PO BEDTIME PRN PRN Reason: Insomnia Non-Formulary Medication (Sucroferric Oxyhydroxide [Velphoro]) 500 mg PO TID [facility] Omeprazole (Omeprazole 20 Mg Capsule.Dr) 20 mg PO DAILY@0630 [facility] Last Admin: 02/03/24 05:19 Dose: 20 mg Ondansetron HCl (Ondansetron Hcl 4 Mg/2 Ml Vial) 4 mg IVPUSH Q8H PRN PRN Reason: Nausea and Vomiting Oxycodone HCl (Oxycodone Hcl Immed Release 5 Mg Tablet) 5 mg PO Q4H PRN PRN Reason: Pain, Severe (Pain Scale 7-10) Last Admin: 02/03/24 01:17 Dose: 5 mg Pharmacy Consult (Consult Rx Vancomycin Dosing) 1 each MISCELLANE DAILY PRN PRN Reason: Consult order Pregabalin (Pregabalin 75 Mg Capsule) 75 mg PO DAILY [facility] Senna/Docusate Sodium (Sennosides/Docusate Sodium Tablet) 1 tab PO DAILY PRN PRN Reason: Constipation Sodium Chloride (0.9 % Sodium Chloride Flush 3 Ml Syringe) 3 ml IVFLUSH QSHIFT NASREEN Last Admin: 02/03/24 07:36 Dose: Not Given Home Medications ?Medication ?Instructions ?Recorded ?Confirmed ?Last Taken ?Type albuterol sulfate 90 mcg/actuation 2 puff inhalation Q4H PRN 04/19/22 02/02/24 Unknown History aerosol inhaler Shortness Of Breath allopurinol 100 mg tablet 100 mg PO MOWEFR@1600 04/19/22 02/02/24 11/27/23 History atorvastatin 40 mg tablet 40 mg PO DAILY 04/19/22 02/02/24 11/27/23 History doxazosin 4 mg tablet 4 mg PO BEDTIME 04/19/22 02/02/24 11/27/23 History furosemide 80 mg tablet 80 mg PO DAILY 04/19/22 02/02/24 11/27/23 History ipratropium 0.5 mg-albuterol 3 mg 3 ml inhalation QID PRN Wheezing 04/19/22 02/02/24 Unknown History (2.5 mg base)/3 mL nebulization soln omeprazole 20 mg capsule,delayed 20 mg PO DAILY@0630 04/19/22 02/02/24 11/27/23 History release sennosides 8.6 mg-docusate sodium 1 tab PO DAILY PRN Constipation 04/19/22 02/02/24 04/19/22 History 50 mg tablet (Senna-Time S) insulin glargine 100 unit/mL (3 22 unit subcut BEDTIME 04/10/23 02/02/24 11/27/23 History mL) subcutaneous pen (Lantus Solostar U-100 Insulin) insulin lispro 100 unit/mL 1 sliding scale dose subcut TIDAC 04/10/23 02/02/24 11/27/23 History subcutaneous pen aspirin 81 mg tablet,delayed 81 mg PO DAILY 06/20/23 02/02/24 11/27/23 History release pregabalin 75 mg capsule 75 mg PO DAILY 06/20/23 02/02/24 11/27/23 History fluticasone fur. 200 mcg-umeclid 1 ea inhalation DAILY 01/24/24 02/02/24 Unknown History 62.5 mcg-vilant 25 mcg inhalat.powder (Trelegy Ellipta) hydralazine 25 mg tablet 25 mg PO TID 01/24/24 02/02/24 Unknown History sucroferric oxyhydroxide 500 mg 500 mg PO TID 01/24/24 02/02/24 Unknown History chewable tablet (Velphoro) Physical Exam Vital Signs: Last Vital Signs Temp 97.6 F 02/03/24 04:00 Pulse 74 02/03/24 04:00 Resp 16 02/03/24 04:00 BP 186/77 H 02/03/24 04:00 Pulse Ox 97 02/03/24 04:00 O2 Del Method Nasal Cannula 02/03/24 04:00 O2 Flow Rate 2 02/03/24 04:00 BMI result Body Mass Index 30.2 cvs: s1s2 Rs; cta Abd; soft foot gangrene and ulcer Results Lab Results 02/02/24 12:57 02/03/24 06:59 Lab results: Chemistry 02/02/24 12:57 Sodium 139 Potassium 3.7 D Carbon Dioxide 26 BUN 21 H Creatinine 5.36 H* Calcium 8.1 L Hematology 02/02/24 12:57 WBC 8.1 Hgb 11.2 L Plt Count 160 Assessment and Plan (1) ESRD on dialysis: Status: Chronic Plan usually has HD -- at [facility]- first shift h/o IR/ thoracic fu for recurrent pleural effusion non adherence with h/o terminating treatments early last dialysed monday ongoing treatment for R le gangrene / pvd REC next dialysis is monday HD MWF schedule optimize volume status improve adherence vascular surgery eval for gangrene toe and abx for celluliis / osteo chf- coreg and entresto as op no need for NAYE (Hb > 11) phosphate binders renal diet Procedures Date of Service Date of Service: 02/03/24
[2024-02-03 07:42] LABS: Anion Gap 19 (12-20); Blood Urea Nitrogen 35 mg/dL (9-16); Calcium 8.5 mg/dL (8.4-10.2); Carbon Dioxide 25 mmol/L (22-29); Chloride 101 mmol/L (96-108); Creatinine Clr Calc Pharmacy 9.1; Estimated Glomerular Filt Rate 8; Glucose Random 107 mg/dL (60-115); Magnesium 1.8 mg/dL (1.6-2.6); Sodium 141 mmol/L (135-145)
[2024-02-03] MEDS: Fluticasone/Umeclidinium/Vilanterol 200/62.5/25 BLST.W.DEV 1 PUFF INHALE (08:08)
[2024-02-03] MEDS: Atorvastatin Calcium 40 MG TABLET PO (09:28)
[2024-02-03] MEDS: carvediloL 6.25 MG TABLET PO ×2 (09:28→20:50)
[2024-02-03] MEDS: Aspirin Enteric Coated 81 MG TABLET.DR PO (09:28)
[2024-02-03] MEDS: Sevelamer Carbonate Tablet 800 MG TABLET PO ×3 (09:28→16:18)
[2024-02-03] MEDS: Furosemide 40 MG TABLET 80 MG PO (09:29)
[2024-02-03] MEDS: cefEPime HCl 0.5 GM in 0.9 % Sodium Chloride 50 ML IV (09:29)
[2024-02-03] MEDS: hydrALAZINE HCl 25 MG TABLET PO ×3 (09:29→20:50)
[2024-02-03] MEDS: Losartan Potassium 25 MG TABLET PO (09:29)
[2024-02-03] MEDS: Fluticasone Propionate Nasal 16 GM SPRAY 1 SPRAY NOSTRIL-B ×2 (09:30→20:51)
[2024-02-03] MEDS: 0.9 % Sodium Chloride Flush 3 ML SYRINGE IVFLUSH ×3 (09:31→20:50)
[2024-02-03] MEDS: Pregabalin 75 MG CAPSULE PO (09:32)
[2024-02-03 11:11] LABS: Glucose, Whole Blood 175 mg/dL (60-115)
[2024-02-03] MEDS: Insulin Lispro 100 UNIT/ML 3 ML VIAL SUBCUT ×2 (11:40→20:49)
--- NOTE | 2024-02-03 13:52 | HO.PM.IMPN ---
Subjective Subjective Date of Service: 02/03/24 Interval History: Right foot cellulitis vs dry gangrene Review of Systems foot seems similar denies new c/o. Physical Exam Vital Signs: Vital Signs: Last Vital Signs Temp 98 F 02/03/24 11:55 Pulse 73 02/03/24 11:55 Resp 14 02/03/24 11:55 BP 152/74 H 02/03/24 11:55 Pulse Ox 97 02/03/24 11:55 O2 Del Method Nasal Cannula 02/03/24 11:55 O2 Flow Rate 2 02/03/24 11:55 BMI result Body Mass Index 30.2 General: AOx3. Resp: air entry fair , no rales or wheezing CVS: S1, S2, RRR GI: +BS, NT, no distention Skin: Warm, dry Neuro: Cranial nerves II-XII grossly intact bilaterally. Motor grossly intact bilaterally Extremities: Right foot as pictured below:see pic h&P note. Objective Data Active Medications Acetaminophen (Acetaminophen 325 Mg Tablet) 650 mg PO Q6H PRN PRN Reason: Pain, Mild (Pain Scale 1-3), fever or headache Albuterol Sulfate (Albuterol Sulfate 90 Mcg 8 Gm Inhaler) 2 puff INHALE Q4H PRN PRN Reason: Shortness Of Breath Albuterol/Ipratropium (Albuterol/Iprat 2.5/0.5mg 3 Ml Ampul.Neb) 3 ml INHALE QID PRN PRN Reason: Wheezing Allopurinol (Allopurinol 100 Mg Tablet) 100 mg PO MOWEFR@1600 [facility] Aspirin (Aspirin Enteric Coated 81 Mg Tablet.) 81 mg PO DAILY [facility] Last Admin: 02/03/24 09:28 Dose: 81 mg Documented By: TUCKER Atorvastatin Calcium (Atorvastatin Calcium 40 Mg Tablet) 40 mg PO DAILY [facility] Last Admin: 02/03/24 09:28 Dose: 40 mg Documented By: TUCKER Benzonatate (Benzonatate 100 Mg Capsule) 100 mg PO TID PRN PRN Reason: Cough Calcium Carbonate (Calcium Carbonate 750 Mg Tab.Chew) 750 mg PO Q4H PRN PRN Reason: Heartburn Carvedilol (Carvedilol 6.25 Mg Tablet) 6.25 mg PO BID [facility]; Protocol Last Admin: 02/03/24 09:28 Dose: 6.25 mg Documented By: TUCKER Doxazosin Mesylate (Doxazosin Mesylate 2 Mg Tablet) 4 mg PO BEDTIME [facility]; Protocol Last Admin: 02/02/24 22:23 Dose: 4 mg Documented By: HIRAL Fluticasone Propionate (Fluticasone Propionate Nasal 16 Gm [place]) 1 spray NOSTRIL-B BID [facility] Last Admin: 02/03/24 09:30 Dose: 1 spray Documented By: TUCKER Fluticasone/Umeclidinium/Vilanterol (Fluticasone/Umeclidinium/Vilanterol 200/62.5/25 Blst.W.Dev) 1 puff INHALE RDAILY [facility] Last Admin: 02/03/24 08:08 Dose: 1 puff Documented By: EVENS Furosemide (Furosemide 40 Mg Tablet) 80 mg PO DAILY [facility]; Protocol Last Admin: 02/03/24 09:29 Dose: 80 mg Documented By: TUCKER Glucose (Glucose Gel 15 Gm Gel..Gram.) 15 gm PO Q15M PRN; Protocol PRN Reason: per Hypoglycemia Standing Ord. Heparin Sodium (Porcine) (Heparin Sodium,Porcine 5,000 Unit/Ml Vial) 5,000 unit SUBCUT Q8H [facility] Last Admin: 02/03/24 11:41 Dose: 5,000 unit Documented By: TUCKER Hydralazine HCl (Hydralazine Hcl 25 Mg Tablet) 25 mg PO TID [facility]; Protocol Last Admin: 02/03/24 09:29 Dose: 25 mg Documented By: TUCKER Cefepime HCl 0.5 gm/ Sodium (Chloride) 50 mls @ 100 mls/hr IV Q24H [facility] Last Infusion: 02/03/24 10:39 Dose: Infused Documented By: TUCKER Vancomycin HCl 500 mg/ Sodium (Chloride) 110 mls @ 110 mls/hr IV MoWeFr@1900 [facility] Dextrose (D10) 250 mls @ 750 mls/hr IV Q15M PRN; Protocol PRN Reason: per Hypoglycemia Standing Ord. Insulin Glargine (Insulin Glargine,Hum.Rec.Anlog 100 Unit/Ml 10 Ml Vial) 16 unit SUBCUT BEDTIME [facility] Last Admin: 02/02/24 22:59 Dose: 16 unit Documented By: HIRAL Insulin Human Lispro (Insulin Lispro 100 Unit/Ml 3 Ml Vial) 0 unit SUBCUT QIDACHS [facility]; Protocol Last Admin: 02/03/24 11:40 Dose: 2 unit Documented By: TUCKER Labetalol HCl (Labetalol Hcl 100 Mg/20 Ml Vial) 5 mg IVPUSH Q4H PRN PRN Reason: SBP >180 Last Admin: 02/03/24 05:16 Dose: 5 mg Documented By: HIRAL Losartan Potassium (Losartan Potassium 25 Mg Tablet) 25 mg PO DAILY [facility]; Protocol Last Admin: 02/03/24 09:29 Dose: 25 mg Documented By: TUCKER Magnesium Hydroxide (Milk Of Magnesia 30 Ml Oral.Susp) 30 ml PO DAILY PRN PRN Reason: Constipation Melatonin (Melatonin 3 Mg Tablet) 6 mg PO BEDTIME PRN PRN Reason: Insomnia Omeprazole (Omeprazole 20 Mg Capsule.Dr) 20 mg PO DAILY@0630 [facility] Last Admin: 02/03/24 05:19 Dose: 20 mg Documented By: HIRAL Ondansetron HCl (Ondansetron Hcl 4 Mg/2 Ml Vial) 4 mg IVPUSH Q8H PRN PRN Reason: Nausea and Vomiting Oxycodone HCl (Oxycodone Hcl Immed Release 5 Mg Tablet) 5 mg PO Q4H PRN PRN Reason: Pain, Severe (Pain Scale 7-10) Last Admin: 02/03/24 11:46 Dose: 5 mg Documented By: TUCKER Pharmacy Consult (Consult Rx Vancomycin Dosing) 1 each MISCELLANE DAILY PRN PRN Reason: Consult order Pregabalin (Pregabalin 75 Mg Capsule) 75 mg PO DAILY [facility] Last Admin: 02/03/24 09:32 Dose: 75 mg Documented By: TUCKER Comments: verified with Gisela JON Senna/Docusate Sodium (Sennosides/Docusate Sodium Tablet) 1 tab PO DAILY PRN PRN Reason: Constipation Sevelamer Carbonate (Sevelamer Carbonate Tablet 800 Mg Tablet) 800 mg PO TIDWM [facility] Last Admin: 02/03/24 11:40 Dose: 800 mg Documented By: TUCKER Sodium Chloride (0.9 % Sodium Chloride Flush 3 Ml Syringe) 3 ml IVFLUSH QSHIFT [facility] Last Admin: 02/03/24 09:31 Dose: 3 ml Documented By: TUCKER Labs 02/02/24 12:57 02/03/24 06:59 Labs: Laboratory Results - last 24 hr 02/02/24 02/02/24 02/02/24 12:57 16:47 22:57 ESR 34 H Hold Purple Top Anion Gap Estim Creat Clear Calc Estimated GFR POC Glucose 171 H Random Glucose Calcium Magnesium C-Reactive Protein 7.61 H 02/03/24 02/03/24 02/03/24 06:59 07:03 11:08 ESR Hold Purple Top SEE NOTE Anion Gap 19 Estim Creat Clear Calc 9.1 Estimated GFR 8 POC Glucose 123 H 175 H Random Glucose 107 Calcium 8.5 Magnesium 1.8 C-Reactive Protein Microbiology Microbiology Results: Microbiology 02/02/24 16:45 Gram Stain - Final Toe Routine Culture - Preliminary Culture in progress. Assessment and Plan (1) Cellulitis of right foot: Status: Acute Assessment and Plan: 68-year-old Kazakh-speaking male with a PMH significant for?ESRD on HD M/W/F last dialyzed earlier today, insulin-dependent type 2 diabetes, peripheral vascular disease, HFrEF (EF35%), HTN, HLD, chronically on 2L home O2, GERD, and ROBERT on CPAP who presents to the ED with?worsening right great and 3rd toe infection. Pt will be admitted to the hospital for treatment and further evaluation of right foot cellulitis that failed outpatient therapy with question of osteomyelitis as well as hypotensive urgency. Right foot cellulitis vs dry gangrene vs ? oseto-Secondary to great and 3rd toe dry gangrene in the setting of peripheral vascular disease(01/26/24 went home outpatient therapy on doxycycline x7 days). Right foot x-ray showed questionable erosion at 3rd distal phalanx, CRP 7.61, ESR 34 No sepsis. continue vancomycin and cefepime, started 02/02/2024 Vascular surgery consult Htn uncontrolled moniter bp closely continue carvedilol, losartan, and doxazosin ESRD on HD M/W/F Continue furosemide, doxazosin Follow BMP Nephrology consult to establish HD while in the hospital Insulin-dependent type 2 diabetes: fs in 120-170's Sliding-scale insulin, Lantus Diabetic diet HLD/PAD Continue aspirin, statin Gout Continue allopurinol GERD PPI Full Code DVT Prophylaxis: Heparin ongoing hospitalization need for treatment of?right foot cellulitis that failed outpatient therapy concerning for possible clelulitis vs dry gangrene-on IV antibiotics, close monitoring of BP, as well as specialist consultation with vascular surgery. above management and medication as well hd complance d/w patient and his family with the help of automatic clipper and stripper. Quality Stroke Does the patient have a stroke diagnosis?: No VTE Prior VTE?: No VTE Risk Level:: Medical - moderate - high VTE Device Contraindication: Treatment Not Indicated VTE Drug Contraindication: N/A - Med Ordered
--- NOTE | 2024-02-03 16:02 | MHC.CM.PN ---
Addendum entered by Nette Gutierrez RN 02/04/24 15:27: Per Renetta patient is not active. Original Note: CM assessment completed w/ field representatives director assistance. IMM delivered. Patient lives in apartment w/ son/CONTROL AREA OPERATOR/HCP Nestor, who assists w/ all ADL's. Ambulates w/ cane. He has home O2, but is unsure of supplier. Reports he is active w/ [facility] for SN/PT. Return referral sent. PCP Shayla JEANO HCP on file and verified HD @ [facility] [address] in [place] M/W/F DP: Goal is home, resume services. STR was recommended during previous hospitalizations, but patient declined and would decline again if recommended. Son to transport. CM will continue to follow.
[2024-02-03 16:04] LABS: Glucose, Whole Blood 118 mg/dL (60-115)
[2024-02-03 18:43] LABS: Vancomycin Random 21.2 mcg/mL (15-20)
[2024-02-03 20:24] LABS: Glucose, Whole Blood 221 mg/dL (60-115)
[2024-02-03] MEDS: Insulin Glargine,Hum.rec.anlog 100 UNIT/ML 10 ML VIAL 16 UNIT SUBCUT (20:49)
[2024-02-03] MEDS: Melatonin 3 MG TABLET 6 MG PO (20:49)
[2024-02-03] MEDS: Doxazosin Mesylate 2 MG TABLET 4 MG PO (20:51)
[2024-02-04] VITALS (14 sets, daily range): BP systolic 146–192; BP diastolic 74–88; PULSE 61–71; RESP 16–20; TEMP 36.4–37; O2SAT 86–99
[2024-02-04] MEDS: HYDROmorphone HCl 0.5 MG/0.5 ML SYRINGE IVPUSH ×3 (00:18→19:49)
[2024-02-04] MEDS: Labetalol HCL 100 MG/20 ML VIAL IVPUSH ×3 (04:00→23:27)
[2024-02-04] MEDS: Heparin Sodium,Porcine 5,000 UNIT/ML VIAL 5000 UNIT SUBCUT ×3 (04:02→19:47)
[2024-02-04 04:15] LABS: Glucose, Whole Blood 50 mg/dL (60-115)
[2024-02-04 04:32] LABS: Glucose, Whole Blood 68 mg/dL (60-115)
[2024-02-04 04:56] LABS: Glucose, Whole Blood 93 mg/dL (60-115)
[2024-02-04] MEDS: Omeprazole 20 MG CAPSULE.DR PO (05:51)
--- NOTE | 2024-02-04 06:13 | PC.NURSE ---
Pt asking to have POC checked when this RN was in at 0400 to administer scheduled heparin because he felt his sugar was low. POC 50 - pt given OPierre and annie arevalo. Rechecked of POC 68. Pt asking for a sandwich. POC post sandwich 93. Dr Edmonds notified of low POC.
[2024-02-04 06:55] LABS: Anion Gap 19 (12-20); Blood Urea Nitrogen 51 mg/dL (9-16); Calcium 8.2 mg/dL (8.4-10.2); Carbon Dioxide 25 mmol/L (22-29); Chloride 102 mmol/L (96-108); Estimated Glomerular Filt Rate 6; Glucose Random 125 mg/dL (60-115); Potassium 4.7 mmol/L (3.3-5.1); Sodium 141 mmol/L (135-145)
[2024-02-04 06:59] LABS: Glucose, Whole Blood 151 mg/dL (60-115)
[2024-02-04] MEDS: Fluticasone/Umeclidinium/Vilanterol 200/62.5/25 BLST.W.DEV 1 PUFF INHALE (08:13)
[2024-02-04] MEDS: Atorvastatin Calcium 40 MG TABLET PO (08:31)
[2024-02-04] MEDS: Furosemide 40 MG TABLET 80 MG PO (08:31)
[2024-02-04] MEDS: Losartan Potassium 25 MG TABLET PO ×2 (08:31→17:31)
[2024-02-04] MEDS: Aspirin Enteric Coated 81 MG TABLET.DR PO (08:31)
[2024-02-04] MEDS: hydrALAZINE HCl 25 MG TABLET PO ×3 (08:32→19:48)
[2024-02-04] MEDS: carvediloL 6.25 MG TABLET PO ×2 (08:32→19:48)
[2024-02-04] MEDS: Sevelamer Carbonate Tablet 800 MG TABLET PO ×3 (08:32→17:31)
[2024-02-04] MEDS: Pregabalin 75 MG CAPSULE PO (08:32)
[2024-02-04] MEDS: cefEPime HCl 0.5 GM in 0.9 % Sodium Chloride 50 ML IV (08:33)
[2024-02-04] MEDS: 0.9 % Sodium Chloride Flush 3 ML SYRINGE IVFLUSH ×2 (09:19→17:31)
[2024-02-04 11:01] LABS: Glucose, Whole Blood 163 mg/dL (60-115)
[2024-02-04] MEDS: Fluticasone Propionate Nasal 16 GM SPRAY 1 SPRAY NOSTRIL-B (11:59)
[2024-02-04] MEDS: Insulin Lispro 100 UNIT/ML 3 ML VIAL SUBCUT (13:00)
[2024-02-04] MEDS: oxyCODONE HCl Immed Release 5 MG TABLET PO ×2 (13:04→23:44)
[2024-02-04] MEDS: Acetaminophen 325 MG TABLET 650 MG PO (13:05)
--- NOTE | 2024-02-04 13:33 | P.PNIM_ITS ---
Subjective Subjective Date of Service: 02/04/24 Interval History: Right foot cellulitis vs dry gangrene Review of Systems foot seems similar denies new c/o. Physical Exam 2 Vital Signs: Vital Signs: Last Vital Signs Temp 97.8 F 02/04/24 11:20 Pulse 61 02/04/24 11:20 Resp 20 02/04/24 11:20 BP 178/81 H 02/04/24 11:20 Pulse Ox 92 02/04/24 11:20 O2 Del Method Nasal Cannula 02/04/24 11:20 O2 Flow Rate 2 02/04/24 11:20 BMI result Body Mass Index 30.2 General: AOx3. Resp: air entry fair , no rales or wheezing CVS: S1, S2, RRR GI: +BS, NT, no distention Skin: Warm, dry Neuro: Cranial nerves II-XII grossly intact bilaterally. Motor grossly intact bilaterally Extremities: Right foot as pictured below:see pic h&P note. Objective Data Active Medications Acetaminophen (Acetaminophen 325 Mg Tablet) 650 mg PO Q6H PRN PRN Reason: Pain, Mild (Pain Scale 1-3), fever or headache Last Admin: 02/04/24 13:05 Dose: 650 mg Documented By: JOHN Albuterol Sulfate (Albuterol Sulfate 90 Mcg 8 Gm Inhaler) 2 puff INHALE Q4H PRN PRN Reason: Shortness Of Breath Albuterol/Ipratropium (Albuterol/Iprat 2.5/0.5mg 3 Ml Ampul.Neb) 3 ml INHALE QID PRN PRN Reason: Wheezing Allopurinol (Allopurinol 100 Mg Tablet) 100 mg PO MOWEFR@1600 [facility] Aspirin (Aspirin Enteric Coated 81 Mg Tablet.) 81 mg PO DAILY [facility] Last Admin: 02/04/24 08:31 Dose: 81 mg Documented By: JOHN Atorvastatin Calcium (Atorvastatin Calcium 40 Mg Tablet) 40 mg PO DAILY [facility] Last Admin: 02/04/24 08:31 Dose: 40 mg Documented By: JOHN Benzonatate (Benzonatate 100 Mg Capsule) 100 mg PO TID PRN PRN Reason: Cough Calcium Carbonate (Calcium Carbonate 750 Mg Tab.Chew) 750 mg PO Q4H PRN PRN Reason: Heartburn Carvedilol (Carvedilol 6.25 Mg Tablet) 6.25 mg PO BID [facility]; Protocol Last Admin: 02/04/24 08:32 Dose: 6.25 mg Documented By: JOHN Doxazosin Mesylate (Doxazosin Mesylate 2 Mg Tablet) 4 mg PO BEDTIME [facility]; Protocol Last Admin: 02/03/24 20:51 Dose: 4 mg Documented By: ACACIA Fluticasone Propionate (Fluticasone Propionate Nasal 16 Gm [place]) 1 spray NOSTRIL-B BID [facility] Last Admin: 02/04/24 11:59 Dose: 1 spray Documented By: JOHN Fluticasone/Umeclidinium/Vilanterol (Fluticasone/Umeclidinium/Vilanterol 200/62.5/25 Blst.W.Dev) 1 puff INHALE RDAILY [facility] Last Admin: 02/04/24 08:13 Dose: 1 puff Documented By: EVENS Furosemide (Furosemide 40 Mg Tablet) 80 mg PO DAILY [facility]; Protocol Last Admin: 02/04/24 08:31 Dose: 80 mg Documented By: JOHN Glucose (Glucose Gel 15 Gm Gel..Gram.) 15 gm PO Q15M PRN; Protocol PRN Reason: per Hypoglycemia Standing Ord. Heparin Sodium (Porcine) (Heparin Sodium,Porcine 5,000 Unit/Ml Vial) 5,000 unit SUBCUT Q8H [facility] Last Admin: 02/04/24 13:04 Dose: 5,000 unit Documented By: JOHN Hydralazine HCl (Hydralazine Hcl 25 Mg Tablet) 25 mg PO TID [facility]; Protocol Last Admin: 02/04/24 08:32 Dose: 25 mg Documented By: JOHN Hydromorphone HCl (Hydromorphone Hcl 0.5 Mg/0.5 Ml Syringe) 0.5 mg IVPUSH Q3H PRN; Protocol PRN Reason: Pain, Severe (Pain Scale 7-10) Last Admin: 02/04/24 08:46 Dose: 0.5 mg Documented By: JOHN Cefepime HCl 0.5 gm/ Sodium (Chloride) 50 mls @ 100 mls/hr IV Q24H [facility] Last Infusion: 02/04/24 12:02 Dose: Infused Documented By: JOHN Vancomycin HCl 500 mg/ Sodium (Chloride) 110 mls @ 110 mls/hr IV MoWeFr@1900 [facility] Dextrose (D10) 250 mls @ 750 mls/hr IV Q15M PRN; Protocol PRN Reason: per Hypoglycemia Standing Ord. Insulin Glargine (Insulin Glargine,Hum.Rec.Anlog 100 Unit/Ml 10 Ml Vial) 16 unit SUBCUT BEDTIME [facility] Last Admin: 02/03/24 20:49 Dose: 16 unit Documented By: ACACIA Insulin Human Lispro (Insulin Lispro 100 Unit/Ml 3 Ml Vial) 0 unit SUBCUT QIDACHS [facility]; Protocol Last Admin: 02/04/24 13:00 Dose: 2 unit Documented By: JOHN Labetalol HCl (Labetalol Hcl 100 Mg/20 Ml Vial) 5 mg IVPUSH Q4H PRN PRN Reason: SBP >180 Last Admin: 02/04/24 09:20 Dose: 5 mg Documented By: JOHN Losartan Potassium (Losartan Potassium 25 Mg Tablet) 25 mg PO DAILY [facility]; Protocol Last Admin: 02/04/24 08:31 Dose: 25 mg Documented By: JOHN Magnesium Hydroxide (Milk Of Magnesia 30 Ml Oral.Susp) 30 ml PO DAILY PRN PRN Reason: Constipation Melatonin (Melatonin 3 Mg Tablet) 6 mg PO BEDTIME PRN PRN Reason: Insomnia Last Admin: 02/03/24 20:49 Dose: 6 mg Documented By: ACACIA Omeprazole (Omeprazole 20 Mg Capsule.Dr) 20 mg PO DAILY@0630 [facility] Last Admin: 02/04/24 05:51 Dose: 20 mg Documented By: ACACIA Ondansetron HCl (Ondansetron Hcl 4 Mg/2 Ml Vial) 4 mg IVPUSH Q8H PRN PRN Reason: Nausea and Vomiting Oxycodone HCl (Oxycodone Hcl Immed Release 5 Mg Tablet) 5 mg PO Q4H PRN PRN Reason: Pain, Severe (Pain Scale 7-10) Last Admin: 02/04/24 13:04 Dose: 5 mg Documented By: JOHN Pharmacy Consult (Consult Rx Vancomycin Dosing) 1 each MISCELLANE DAILY PRN PRN Reason: Consult order Pregabalin (Pregabalin 75 Mg Capsule) 75 mg PO DAILY [facility] Last Admin: 02/04/24 08:32 Dose: 75 mg Documented By: JOHN Senna/Docusate Sodium (Sennosides/Docusate Sodium Tablet) 1 tab PO DAILY PRN PRN Reason: Constipation Sevelamer Carbonate (Sevelamer Carbonate Tablet 800 Mg Tablet) 800 mg PO TIDWM [facility] Last Admin: 02/04/24 13:05 Dose: 800 mg Documented By: JOHN Sodium Chloride (0.9 % Sodium Chloride Flush 3 Ml Syringe) 3 ml IVFLUSH QSHIFT [facility] Last Admin: 02/04/24 09:19 Dose: 3 ml Documented By: JOHN Labs 02/02/24 12:57 02/04/24 06:22 Labs: Laboratory Results - last 24 hr 02/03/24 02/03/24 02/03/24 15:58 17:59 20:21 Hold Purple Top Anion Gap Estim Creat Clear Calc Estimated GFR POC Glucose 118 H 221 H Random Glucose Calcium Random Vancomycin 21.2 H 02/04/24 02/04/24 02/04/24 04:11 04:27 04:51 Hold Purple Top Anion Gap Estim Creat Clear Calc Estimated GFR POC Glucose 50 L* 68 93 Random Glucose Calcium Random Vancomycin 02/04/24 02/04/24 02/04/24 06:22 06:52 10:54 Hold Purple Top SEE NOTE Anion Gap 19 Estim Creat Clear Calc 7.0 Estimated GFR 6 POC Glucose 151 H 163 H Random Glucose 125 H Calcium 8.2 L Random Vancomycin Microbiology Microbiology Results: Microbiology 02/02/24 16:45 Gram Stain - Final Toe Routine Culture - Preliminary Staphylococcus aureus Enterococcus/Streptococcus sp 02/02/24 16:33 Blood Culture - Preliminary Blood - Venous No growth after 24 hours. 02/02/24 12:57 Blood Culture - Preliminary Blood - Venous No growth after 24 hours. Assessment and Plan (1) Cellulitis of right foot: Status: Acute Assessment and Plan: 68-year-old Chinese-speaking male with a PMH significant for?ESRD on HD M/W/F last dialyzed earlier today, insulin-dependent type 2 diabetes, peripheral vascular disease, HFrEF (EF35%), HTN, HLD, chronically on 2L home O2, GERD, and ROBERT on CPAP who presents to the ED with?worsening right great and 3rd toe infection. Pt will be admitted to the hospital for treatment and further evaluation of right foot cellulitis that failed outpatient therapy with question of osteomyelitis as well as hypotensive urgency. Right foot cellulitis vs dry gangrene vs ? oseto-Secondary to great and 3rd toe dry gangrene in the setting of peripheral vascular disease(01/26/24 went home outpatient therapy on doxycycline x7 days). Right foot x-ray showed questionable erosion at 3rd distal phalanx, CRP 7.61, ESR 34 No sepsis. continue vancomycin and cefepime, started 02/02/2024 Vascular surgery consult Htn uncontrolled moniter bp closely continue carvedilol, losartan, and doxazosin ESRD on HD M/W/F Continue furosemide, doxazosin Follow BMP Nephrology consult to establish HD while in the hospital Insulin-dependent type 2 diabetes: fs in 120-170's Sliding-scale insulin, Lantus Diabetic diet HLD/PAD Continue aspirin, statin Gout Continue allopurinol GERD PPI Full Code DVT Prophylaxis: Heparin ongoing hospitalization need for treatment of?right foot cellulitis that failed outpatient therapy concerning for possible clelulitis vs dry gangrene-on IV antibiotics, close monitoring of BP, as well as specialist consultation with vascular surgery. d/w patient and his family at bedside. Quality Stroke Does the patient have a stroke diagnosis?: No VTE Prior VTE?: No VTE Risk Level:: Medical - moderate - high VTE Device Contraindication: Treatment Not Indicated VTE Drug Contraindication: N/A - Med Ordered
[2024-02-04 16:18] LABS: Glucose, Whole Blood 145 mg/dL (60-115)
--- NOTE | 2024-02-04 16:31 | P.PNNP_ITS ---
Subjective Subjective Date of Service: 02/05/24 Interval history: Right foot cellulitis vs dry gangrene Physical Exam 2 Vital Signs: Vital Signs: Last Vital Signs Temp 97.8 F 02/04/24 11:20 Pulse 61 02/04/24 11:20 Resp 20 02/04/24 11:20 BP 178/81 H 02/04/24 11:20 Pulse Ox 92 02/04/24 11:20 O2 Del Method Nasal Cannula 02/04/24 11:20 O2 Flow Rate 2 02/04/24 11:20 BMI result Body Mass Index 30.2 cvs: s1s2 Rs; cta Abd; soft foot gangrene and ulcer Objective Data Labs 02/02/24 12:57 02/04/24 06:22 Labs: Laboratory Results - last 24 hr 02/03/24 02/03/24 02/04/24 17:59 20:21 04:11 Hold Purple Top Sodium Potassium Chloride Carbon Dioxide Anion Gap BUN Creatinine Estim Creat Clear Calc Estimated GFR POC Glucose 221 H 50 L* Random Glucose Calcium Random Vancomycin 21.2 H 02/04/24 02/04/24 02/04/24 04:27 04:51 06:22 Hold Purple Top SEE NOTE Sodium 141 Potassium 4.7 Chloride 102 Carbon Dioxide 25 Anion Gap 19 BUN 51 H Creatinine 9.02 H* Estim Creat Clear Calc 7.0 Estimated GFR 6 POC Glucose 68 93 Random Glucose 125 H Calcium 8.2 L Random Vancomycin 02/04/24 02/04/24 02/04/24 06:52 10:54 16:15 Hold Purple Top Sodium Potassium Chloride Carbon Dioxide Anion Gap BUN Creatinine Estim Creat Clear Calc Estimated GFR POC Glucose 151 H 163 H 145 H Random Glucose Calcium Random Vancomycin Microbiology Microbiology Results: Microbiology 02/02/24 12:57 Blood - Venous Blood Culture - Preliminary No growth after 48 hours. 02/02/24 16:45 Toe Gram Stain - Final 02/02/24 16:45 Toe Routine Culture - Preliminary Staphylococcus aureus Enterococcus/Streptococcus sp 02/02/24 16:33 Blood - Venous Blood Culture - Preliminary No growth after 24 hours. Procedures Date of Service Date of Service: 02/05/24 Assessment & Plan Assessment and plan (1) ESRD on dialysis: Status: Chronic Plan usually has HD M-W-F [address] [facility]- first shift h/o IR/ thoracic fu for recurrent pleural effusion non adherence with h/o terminating treatments early last dialysed monday ongoing treatment for R le gangrene / pvd htn not controlled REC next dialysis is monday HD MWF schedule optimize volume status improve adherence vascular surgery eval for gangrene toe and abx for celluliis / osteo chf- coreg and entresto as op no need for NAYE (Hb > 11) phosphate binders will increase losartan to 50mg , next amlodipine if bp still not controlled renal diet Time Spent With Patient Time: Total time managing care of this patient today ____ minutes. Progress Note: Quality Stroke Does the patient have a stroke diagnosis?: No
[2024-02-04] MEDS: Melatonin 3 MG TABLET 6 MG PO (19:48)
[2024-02-04] MEDS: Doxazosin Mesylate 2 MG TABLET 4 MG PO (20:07)
[2024-02-04 20:33] LABS: Glucose, Whole Blood 120 mg/dL (60-115)
[2024-02-04] MEDS: Insulin Glargine,Hum.rec.anlog 100 UNIT/ML 10 ML VIAL 16 UNIT SUBCUT (21:15)
[2024-02-05] VITALS (13 sets, daily range): BP systolic 144–214; BP diastolic 63–95; PULSE 67–85; RESP 16–20; TEMP 36.3–36.6; O2SAT 92–99
[2024-02-05] MEDS: oxyCODONE HCl Immed Release 5 MG TABLET PO ×4 (04:56→22:26)
[2024-02-05] MEDS: Omeprazole 20 MG CAPSULE.DR PO (04:56)
[2024-02-05] MEDS: Heparin Sodium,Porcine 5,000 UNIT/ML VIAL 5000 UNIT SUBCUT ×3 (04:57→20:44)
[2024-02-05 06:38] LABS: Glucose, Whole Blood 61 mg/dL (60-115)
[2024-02-05 07:02] LABS: Glucose, Whole Blood 66 mg/dL (60-115)
[2024-02-05 07:19] LABS: Glucose, Whole Blood 70 mg/dL (60-115)
[2024-02-05 07:37] LABS: Anion Gap 25 (12-20); Blood Urea Nitrogen 73 mg/dL (9-16); Calcium 8.4 mg/dL (8.4-10.2); Carbon Dioxide 22 mmol/L (22-29); Chloride 100 mmol/L (96-108); Potassium 5.3 mmol/L (3.3-5.1); Sodium 142 mmol/L (135-145)
[2024-02-05 07:39] LABS: Creatinine Clr Calc Pharmacy 5.7; Estimated Glomerular Filt Rate 5; Glucose Random 51 mg/dL (60-115)
[2024-02-05] MEDS: Fluticasone/Umeclidinium/Vilanterol 200/62.5/25 BLST.W.DEV 1 PUFF INHALE (07:51)
[2024-02-05] MEDS: Labetalol HCL 100 MG/20 ML VIAL IVPUSH (07:51)
[2024-02-05] MEDS: 0.9 % Sodium Chloride Flush 3 ML SYRINGE IVFLUSH ×3 (07:58→20:45)
[2024-02-05] MEDS: cefEPime HCl 0.5 GM in 0.9 % Sodium Chloride 50 ML IV (09:46)
[2024-02-05] MEDS: Furosemide 40 MG TABLET 80 MG PO (09:47)
[2024-02-05] MEDS: Sevelamer Carbonate Tablet 800 MG TABLET PO ×2 (09:47→16:22)
[2024-02-05] MEDS: Pregabalin 75 MG CAPSULE PO (09:47)
[2024-02-05] MEDS: Losartan Potassium 50 MG TABLET PO (09:48)
[2024-02-05] MEDS: hydrALAZINE HCl 25 MG TABLET PO ×3 (09:48→20:44)
[2024-02-05] MEDS: Atorvastatin Calcium 40 MG TABLET PO (09:48)
[2024-02-05] MEDS: carvediloL 6.25 MG TABLET PO ×2 (09:48→20:44)
[2024-02-05] MEDS: Aspirin Enteric Coated 81 MG TABLET.DR PO (09:48)
--- NOTE | 2024-02-05 11:44 | MHC.CM.PN ---
Per rounds, pt is not ready for DC, he will be tested for osteomyelitis. CM to follow for DC needs.
[2024-02-05 11:54] LABS: Glucose, Whole Blood 108 mg/dL (60-115)
--- NOTE | 2024-02-05 12:22 | HO.PM.IMPN ---
Subjective Subjective Date of Service: 02/05/24 Interval History: Right foot cellulitis vs dry gangrene Review of Systems foot seems similar,denies new c/o. Physical Exam Vital Signs: Vital Signs: Last Vital Signs Temp 97.7 F 02/05/24 08:30 Pulse 67 02/05/24 08:03 Resp 18 02/05/24 08:30 BP 153/67 H 02/05/24 09:49 Pulse Ox 98 02/05/24 08:30 O2 Del Method Nasal Cannula 02/05/24 08:30 O2 Flow Rate 3 02/05/24 08:30 BMI result Body Mass Index 30.2 General: AOx3. Resp: air entry fair , no rales or wheezing CVS: S1, S2, RRR GI: +BS, NT, no distention Skin: Warm, dry Neuro: Cranial nerves II-XII grossly intact bilaterally. Motor grossly intact bilaterally Extremities: Right foot as pictured below:see pic h&P note. Objective Data Active Medications Acetaminophen (Acetaminophen 325 Mg Tablet) 650 mg PO Q6H PRN PRN Reason: Pain, Mild (Pain Scale 1-3), fever or headache Last Admin: 02/04/24 13:05 Dose: 650 mg Documented By: JOHN Albuterol Sulfate (Albuterol Sulfate 90 Mcg 8 Gm Inhaler) 2 puff INHALE Q4H PRN PRN Reason: Shortness Of Breath Albuterol/Ipratropium (Albuterol/Iprat 2.5/0.5mg 3 Ml Ampul.Neb) 3 ml INHALE QID PRN PRN Reason: Wheezing Allopurinol (Allopurinol 100 Mg Tablet) 100 mg PO MOWEFR@1600 [facility] Aspirin (Aspirin Enteric Coated 81 Mg Tablet.) 81 mg PO DAILY [facility] Last Admin: 02/05/24 09:48 Dose: 81 mg Documented By: GARCIA Atorvastatin Calcium (Atorvastatin Calcium 40 Mg Tablet) 40 mg PO DAILY [facility] Last Admin: 02/05/24 09:48 Dose: 40 mg Documented By: GARCIA Benzonatate (Benzonatate 100 Mg Capsule) 100 mg PO TID PRN PRN Reason: Cough Calcium Carbonate (Calcium Carbonate 750 Mg Tab.Chew) 750 mg PO Q4H PRN PRN Reason: Heartburn Carvedilol (Carvedilol 6.25 Mg Tablet) 6.25 mg PO BID [facility]; Protocol Last Admin: 02/05/24 09:48 Dose: 6.25 mg Documented By: GARCIA Doxazosin Mesylate (Doxazosin Mesylate 2 Mg Tablet) 4 mg PO BEDTIME [facility]; Protocol Last Admin: 02/04/24 20:07 Dose: 4 mg Documented By: HIRAL Fluticasone Propionate (Fluticasone Propionate Nasal 16 Gm [place]) 1 spray NOSTRIL-B BID [facility] Last Admin: 02/05/24 10:16 Dose: Not Given Documented By: GARCIA Non-Admin Reason: Patient Refused Fluticasone/Umeclidinium/Vilanterol (Fluticasone/Umeclidinium/Vilanterol 200/62.5/25 Blst.W.Dev) 1 puff INHALE RDAILY [facility] Last Admin: 02/05/24 07:51 Dose: 1 puff Documented By: EMELIA Furosemide (Furosemide 40 Mg Tablet) 80 mg PO DAILY [facility]; Protocol Last Admin: 02/05/24 09:47 Dose: 80 mg Documented By: GARCIA Glucose (Glucose Gel 15 Gm Gel..Gram.) 15 gm PO Q15M PRN; Protocol PRN Reason: per Hypoglycemia Standing Ord. Heparin Sodium (Porcine) (Heparin Sodium,Porcine 5,000 Unit/Ml Vial) 5,000 unit SUBCUT Q8H [facility] Last Admin: 02/05/24 04:57 Dose: 5,000 unit Documented By: HIRAL Hydralazine HCl (Hydralazine Hcl 25 Mg Tablet) 25 mg PO TID [facility]; Protocol Last Admin: 02/05/24 09:48 Dose: 25 mg Documented By: GARCIA Hydromorphone HCl (Hydromorphone Hcl 0.5 Mg/0.5 Ml Syringe) 0.5 mg IVPUSH Q3H PRN; Protocol PRN Reason: Pain, Severe (Pain Scale 7-10) Last Admin: 02/04/24 19:49 Dose: 0.5 mg Documented By: HIRAL Cefepime HCl 0.5 gm/ Sodium (Chloride) 50 mls @ 100 mls/hr IV Q24H [facility] Last Infusion: 02/05/24 10:45 Dose: Infused Documented By: GARCIA Vancomycin HCl 500 mg/ Sodium (Chloride) 110 mls @ 110 mls/hr IV MoWeFr@1900 [facility] Dextrose (D10) 250 mls @ 750 mls/hr IV Q15M PRN; Protocol PRN Reason: per Hypoglycemia Standing Ord. Insulin Glargine (Insulin Glargine,Hum.Rec.Anlog 100 Unit/Ml 10 Ml Vial) 16 unit SUBCUT BEDTIME [facility] Last Admin: 02/04/24 21:15 Dose: 16 unit Documented By: HIRAL Insulin Human Lispro (Insulin Lispro 100 Unit/Ml 3 Ml Vial) 0 unit SUBCUT QIDACHS [facility]; Protocol Last Admin: 02/05/24 07:30 Dose: Not Given Documented By: GARCIA Non-Admin Reason: No Insulin Coverage Labetalol HCl (Labetalol Hcl 100 Mg/20 Ml Vial) 5 mg IVPUSH Q4H PRN PRN Reason: SBP >180 Last Admin: 02/05/24 07:51 Dose: 5 mg Documented By: GARCIA Losartan Potassium (Losartan Potassium 50 Mg Tablet) 50 mg PO DAILY [facility]; Protocol Last Admin: 02/05/24 09:48 Dose: 50 mg Documented By: GARCIA Magnesium Hydroxide (Milk Of Magnesia 30 Ml Oral.Susp) 30 ml PO DAILY PRN PRN Reason: Constipation Melatonin (Melatonin 3 Mg Tablet) 6 mg PO BEDTIME PRN PRN Reason: Insomnia Last Admin: 02/04/24 19:48 Dose: 6 mg Documented By: HIRAL Omeprazole (Omeprazole 20 Mg Capsule.) 20 mg PO DAILY@0630 [facility] Last Admin: 02/05/24 04:56 Dose: 20 mg Documented By: HIRAL Ondansetron HCl (Ondansetron Hcl 4 Mg/2 Ml Vial) 4 mg IVPUSH Q8H PRN PRN Reason: Nausea and Vomiting Oxycodone HCl (Oxycodone Hcl Immed Release 5 Mg Tablet) 5 mg PO Q4H PRN PRN Reason: Pain, Severe (Pain Scale 7-10) Last Admin: 02/05/24 10:08 Dose: 5 mg Documented By: GARCIA Pharmacy Consult (Consult Rx Vancomycin Dosing) 1 each MISCELLANE DAILY PRN PRN Reason: Consult order Pregabalin (Pregabalin 75 Mg Capsule) 75 mg PO DAILY [facility] Last Admin: 02/05/24 09:47 Dose: 75 mg Documented By: GARCIA Senna/Docusate Sodium (Sennosides/Docusate Sodium Tablet) 1 tab PO DAILY PRN PRN Reason: Constipation Sevelamer Carbonate (Sevelamer Carbonate Tablet 800 Mg Tablet) 800 mg PO TIDWM [facility] Last Admin: 02/05/24 09:47 Dose: 800 mg Documented By: GARCIA Sodium Chloride (0.9 % Sodium Chloride Flush 3 Ml Syringe) 3 ml IVFLUSH QSHIFT [facility] Last Admin: 02/05/24 07:58 Dose: 3 ml Documented By: GARCIA Labs 02/02/24 12:57 02/05/24 06:38 Labs: Laboratory Results - last 24 hr 02/04/24 02/04/24 02/05/24 16:15 20:29 06:35 Anion Gap Estim Creat Clear Calc Estimated GFR POC Glucose 145 H 120 H 61 Random Glucose Calcium 02/05/24 02/05/24 02/05/24 06:38 06:57 07:14 Anion Gap 25 H Estim Creat Clear Calc 5.7 Estimated GFR 5 POC Glucose 66 70 Random Glucose 51 L* Calcium 8.4 02/05/24 11:43 Anion Gap Estim Creat Clear Calc Estimated GFR POC Glucose 108 Random Glucose Calcium Microbiology Microbiology Results: Microbiology 02/02/24 16:45 Gram Stain - Final Toe Routine Culture - Final Methicillin Res Staph Aureus Enterococcus faecalis 02/02/24 16:33 Blood Culture - Preliminary Blood - Venous No growth after 48 hours. 02/02/24 12:57 Blood Culture - Preliminary Blood - Venous No growth after 48 hours. Assessment and Plan (1) Cellulitis of right foot: Status: Acute Assessment and Plan: 68-year-old Swedish-speaking male with a PMH significant for?ESRD on HD M/W/F last dialyzed earlier today, insulin-dependent type 2 diabetes, peripheral vascular disease, HFrEF (EF35%), HTN, HLD, chronically on 2L home O2, GERD, and ROBETR on CPAP who presents to the ED with?worsening right great and 3rd toe infection. Pt will be admitted to the hospital for treatment and further evaluation of right foot cellulitis that failed outpatient therapy with question of osteomyelitis as well as hypotensive urgency. Right foot cellulitis vs dry gangrene vs ? oseto-Secondary to great and 3rd toe dry gangrene in the setting of peripheral vascular disease(01/26/24 went home outpatient therapy on doxycycline x7 days). Right foot x-ray showed questionable erosion at 3rd distal phalanx, CRP 7.61, ESR 34 No sepsis. continue vancomycin and cefepime, started 02/02/2024 Vascular surgery consult noted-no acute interevntion . Id eval added Htn uncontrolled moniter bp closely continue carvedilol, losartan, and doxazosin ESRD on HD M/W/F Continue furosemide, doxazosin Follow BMP Nephrology consult to establish HD while in the hospital Insulin-dependent type 2 diabetes: fs in 120-170's Sliding-scale insulin, Lantus Diabetic diet HLD/PAD Continue aspirin, statin Gout Continue allopurinol GERD PPI Full Code DVT Prophylaxis: Heparin ongoing hospitalization need for treatment of?right foot cellulitis that failed outpatient therapy concerning for possible clelulitis vs dry gangrene-on IV antibiotics, close monitoring of BP, as well as specialist consultation with vascular surgery. d/w patient and his family at bedside. Quality Stroke Does the patient have a stroke diagnosis?: No VTE Prior VTE?: No VTE Risk Level:: Medical - moderate - high VTE Device Contraindication: Treatment Not Indicated VTE Drug Contraindication: N/A - Med Ordered
--- NOTE | 2024-02-05 13:08 | HO.WOUND ---
Wound Consult: Initial 68yr old male? [place] [facility] [place] See progress notes and H&P for detailed history.? Wound consult placed for Right Great Toe and 3rd toe.? Patient agreeable to assessment and photo documentation.? Right Great Toe and 3rd Toe Etiology: ?Mixed Etiology - Arterial and venous Wound Bed: dry stable necrotic toe Drainage / Odor: None Edges: ? attached Mariela wound: ?mild erythema and great toe swelling Pain: mild tenderness reported to posterior area of great toe Goals of Treatment: ? Alta with Betadine to keep dry and stable and defer to Vascular surgery Recommendations: 1. When applicable maintain blood glucose levels per Providers order. 2. Right Great Toe and 3rd toe - Alta with betadine, allow to dry. Cover with dry gauze. Change Daily. Re-consult wound care Nurse for wound deterioration or wound changes.
[2024-02-05] MEDS: HYDROmorphone HCl 0.5 MG/0.5 ML SYRINGE IVPUSH ×3 (14:01→20:43)
--- NOTE | 2024-02-05 14:34 | PM.CNGS ---
History of Present Illness Consult details Consult date: 02/05/24 Narrative: Beau, a pleasant 68-year-old male patient, known to this office, is being seen today as a consult for ongoing right foot pain and cellulitis. He presented to the ER the other today for concerns of the pain and the dry gangrene noted on his right toes. Blood cultures have revealed MRSA in the toes. Review of Systems Constitutional: Constitutional: Reports as per HPI and Denies weakness ENT: Reports Normal hearing present and Denies dizziness Cardiovascular: Cardiovascular: Reports as per HPI, Denies chest pain, Denies chest pain at rest, Denies chest pain with activity, Denies dyspnea and Denies dyspnea on exertion Respiratory: Respiratory: Reports as per HPI, Denies cough, Denies dyspnea and Denies dyspnea on exertion Gastrointestinal: Gastrointestinal: Reports as per HPI, Denies abdominal pain, Denies nausea and Denies vomiting Musculoskeletal: Musculoskeletal: Denies numbness Integumentary/Breasts: Skin/Breast: Reports as per HPI, Denies erythema and Denies wounds Neurologic: Reports Normal hearing present, Denies dizziness, Denies numbness, Denies Sensory deficit (Neuro) and Denies weakness Psychiatric: Psychiatric: Reports no additional psychiatric complaints Endocrine: Endocrine: Reports no additional endocrine complaints [facility] Past Medical History Medical History Chronic combined systolic and diastolic CHF (congestive heart failure) ESRD on dialysis Acute on chronic systolic and diastolic heart failure, NYHA class 3 HFrEF (heart failure with reduced ejection fraction) ESRD (end stage renal disease) Anemia ESRD (end stage renal disease) Chronic pericardial effusion Arthritis Asthma Restless leg syndrome Occlusive thrombus Pulmonary edema ROBERT (obstructive sleep apnea) Type 2 diabetes mellitus Hyperlipidemia Hypertension A-V fistula Falling Family History Family History Father No problems noted. Mother No problems noted. Surgical History Surgical History Recurrent pleural effusion Pleural effusion on right (07/13/23) History of surgery H/O colonoscopy Social History Social History Household Members: Children Household Members Other:: son Housing: Apartment Do you presently have visiting nurse or other home services: Yes (daily for BP and POC check) Alcohol intake: never Comment: counts correct Patient Tobacco Use Status: Former Tobacco user Tobacco use type: Cigarette Smoked in Last 30 Days: No Second Hand Smoke Exposure: No Use of substances other than those prescribed or required for medical reasons: No Currently Displaying Signs/Symptoms of Drug Intoxication Withdrawal: No Have you been hit, kicked, punched, or otherwise hurt by someone within the past year? If so, by whom?: No Do you feel safe in your current relationship?: Yes Is there a partner from a previous relationship who is making you feel unsafe now?: No Are you made to feel afraid or neglected: No Advance Directives: Yes Advance Directives on File: Yes Advance Directives Date on File: 10/04/23 Do you have a plan to hurt others: No Plan Recently lost weight without trying: No Eating poorly because of decreased appetite: No Nutrition Risks: No Nutritional Risk Poor oral hygiene: No service: No Meds Allergies Allergy/AdvReac Type Severity Reaction Status Date / Time No Known Allergies Allergy Verified 02/02/24 11:29 Active Medications: Current Medications Acetaminophen (Acetaminophen 325 Mg Tablet) 650 mg PO Q6H PRN PRN Reason: Pain, Mild (Pain Scale 1-3), fever or headache Last Admin: 02/04/24 13:05 Dose: 650 mg Albuterol Sulfate (Albuterol Sulfate 90 Mcg 8 Gm Inhaler) 2 puff INHALE Q4H PRN PRN Reason: Shortness Of Breath Albuterol/Ipratropium (Albuterol/Iprat 2.5/0.5mg 3 Ml Ampul.Neb) 3 ml INHALE QID PRN PRN Reason: Wheezing Allopurinol (Allopurinol 100 Mg Tablet) 100 mg PO MOWEFR@1600 [facility] Aspirin (Aspirin Enteric Coated 81 Mg Tablet.) 81 mg PO DAILY [facility] Last Admin: 02/05/24 09:48 Dose: 81 mg Atorvastatin Calcium (Atorvastatin Calcium 40 Mg Tablet) 40 mg PO DAILY [facility] Last Admin: 02/05/24 09:48 Dose: 40 mg Benzonatate (Benzonatate 100 Mg Capsule) 100 mg PO TID PRN PRN Reason: Cough Calcium Carbonate (Calcium Carbonate 750 Mg Tab.Chew) 750 mg PO Q4H PRN PRN Reason: Heartburn Carvedilol (Carvedilol 6.25 Mg Tablet) 6.25 mg PO BID [facility]; Protocol Last Admin: 02/05/24 09:48 Dose: 6.25 mg Doxazosin Mesylate (Doxazosin Mesylate 2 Mg Tablet) 4 mg PO BEDTIME [facility]; Protocol Last Admin: 02/04/24 20:07 Dose: 4 mg Fluticasone Propionate (Fluticasone Propionate Nasal 16 Gm [place]) 1 spray NOSTRIL-B BID [facility] Last Admin: 02/05/24 10:16 Dose: Not Given Fluticasone/Umeclidinium/Vilanterol (Fluticasone/Umeclidinium/Vilanterol 200/62.5/25 Blst.W.Dev) 1 puff INHALE RDAILY [facility] Last Admin: 02/05/24 07:51 Dose: 1 puff Furosemide (Furosemide 40 Mg Tablet) 80 mg PO DAILY [facility]; Protocol Last Admin: 02/05/24 09:47 Dose: 80 mg Glucose (Glucose Gel 15 Gm Gel..Gram.) 15 gm PO Q15M PRN; Protocol PRN Reason: per Hypoglycemia Standing Ord. Heparin Sodium (Porcine) (Heparin Sodium,Porcine 5,000 Unit/Ml Vial) 5,000 unit SUBCUT Q8H [facility] Last Admin: 02/05/24 04:57 Dose: 5,000 unit Hydralazine HCl (Hydralazine Hcl 25 Mg Tablet) 25 mg PO TID [facility]; Protocol Last Admin: 02/05/24 09:48 Dose: 25 mg Hydromorphone HCl (Hydromorphone Hcl 0.5 Mg/0.5 Ml Syringe) 0.5 mg IVPUSH Q3H PRN; Protocol PRN Reason: Pain, Severe (Pain Scale 7-10) Last Admin: 02/05/24 14:01 Dose: 0.5 mg Cefepime HCl 0.5 gm/ Sodium (Chloride) 50 mls @ 100 mls/hr IV Q24H [facility] Last Infusion: 02/05/24 10:45 Dose: Infused Vancomycin HCl 500 mg/ Sodium (Chloride) 110 mls @ 110 mls/hr IV MoWeFr@1900 [facility] Dextrose (D10) 250 mls @ 750 mls/hr IV Q15M PRN; Protocol PRN Reason: per Hypoglycemia Standing Ord. Insulin Glargine (Insulin Glargine,Hum.Rec.Anlog 100 Unit/Ml 10 Ml Vial) 16 unit SUBCUT BEDTIME [facility] Last Admin: 02/04/24 21:15 Dose: 16 unit Insulin Human Lispro (Insulin Lispro 100 Unit/Ml 3 Ml Vial) 0 unit SUBCUT QIDACHS [facility]; Protocol Last Admin: 02/05/24 12:23 Dose: Not Given Labetalol HCl (Labetalol Hcl 100 Mg/20 Ml Vial) 5 mg IVPUSH Q4H PRN PRN Reason: SBP >180 Last Admin: 02/05/24 07:51 Dose: 5 mg Losartan Potassium (Losartan Potassium 50 Mg Tablet) 50 mg PO DAILY [facility]; Protocol Last Admin: 02/05/24 09:48 Dose: 50 mg Magnesium Hydroxide (Milk Of Magnesia 30 Ml Oral.Susp) 30 ml PO DAILY PRN PRN Reason: Constipation Melatonin (Melatonin 3 Mg Tablet) 6 mg PO BEDTIME PRN PRN Reason: Insomnia Last Admin: 02/04/24 19:48 Dose: 6 mg Omeprazole (Omeprazole 20 Mg Capsule.Dr) 20 mg PO DAILY@0630 [facility] Last Admin: 02/05/24 04:56 Dose: 20 mg Ondansetron HCl (Ondansetron Hcl 4 Mg/2 Ml Vial) 4 mg IVPUSH Q8H PRN PRN Reason: Nausea and Vomiting Oxycodone HCl (Oxycodone Hcl Immed Release 5 Mg Tablet) 5 mg PO Q4H PRN PRN Reason: Pain, Severe (Pain Scale 7-10) Last Admin: 02/05/24 10:08 Dose: 5 mg Pharmacy Consult (Consult Rx Vancomycin Dosing) 1 each MISCELLANE DAILY PRN PRN Reason: Consult order Pregabalin (Pregabalin 75 Mg Capsule) 75 mg PO DAILY [facility] Last Admin: 02/05/24 09:47 Dose: 75 mg Senna/Docusate Sodium (Sennosides/Docusate Sodium Tablet) 1 tab PO DAILY PRN PRN Reason: Constipation Sevelamer Carbonate (Sevelamer Carbonate Tablet 800 Mg Tablet) 800 mg PO TIDWM [facility] Last Admin: 02/05/24 09:47 Dose: 800 mg Sodium Chloride (0.9 % Sodium Chloride Flush 3 Ml Syringe) [facility] Last Admin: 02/05/24 07:58 Dose: 3 ml Home Medications ?Medication ?Instructions ?Recorded ?Confirmed ?Last Taken ?Type albuterol sulfate 90 mcg/actuation 2 puff inhalation Q4H PRN 04/19/22 02/02/24 Unknown History aerosol inhaler Shortness Of Breath allopurinol 100 mg tablet 100 mg PO MOWEFR@1600 04/19/22 02/02/24 11/27/23 History atorvastatin 40 mg tablet 40 mg PO DAILY 04/19/22 02/02/24 11/27/23 History doxazosin 4 mg tablet 4 mg PO BEDTIME 04/19/22 02/02/24 11/27/23 History furosemide 80 mg tablet 80 mg PO DAILY 04/19/22 02/02/24 11/27/23 History ipratropium 0.5 mg-albuterol 3 mg 3 ml inhalation QID PRN Wheezing 04/19/22 02/02/24 Unknown History (2.5 mg base)/3 mL nebulization soln omeprazole 20 mg capsule,delayed 20 mg PO DAILY@0630 04/19/22 02/02/24 11/27/23 History release sennosides 8.6 mg-docusate sodium 1 tab PO DAILY PRN Constipation 04/19/22 02/02/24 04/19/22 History 50 mg tablet (Senna-Time S) insulin glargine 100 unit/mL (3 22 unit subcut BEDTIME 04/10/23 02/02/24 11/27/23 History mL) subcutaneous pen (Lantus Solostar U-100 Insulin) insulin lispro 100 unit/mL 1 sliding scale dose subcut TIDAC 04/10/23 02/02/24 11/27/23 History subcutaneous pen aspirin 81 mg tablet,delayed 81 mg PO DAILY 06/20/23 02/02/24 11/27/23 History release pregabalin 75 mg capsule 75 mg PO DAILY 06/20/23 02/02/24 11/27/23 History fluticasone fur. 200 mcg-umeclid 1 ea inhalation DAILY 01/24/24 02/02/24 Unknown History 62.5 mcg-vilant 25 mcg inhalat.powder (Trelegy Ellipta) hydralazine 25 mg tablet 25 mg PO TID 01/24/24 02/02/24 Unknown History sucroferric oxyhydroxide 500 mg 500 mg PO TID 01/24/24 02/02/24 Unknown History chewable tablet (Velphoro) Physical Exam Vital Signs: Vital Signs: Last Vital Signs Temp 97.7 F 02/05/24 08:30 Pulse 67 02/05/24 08:03 Resp 18 02/05/24 14:01 BP 153/67 H 02/05/24 09:49 Pulse Ox 98 02/05/24 08:30 O2 Del Method Nasal Cannula 02/05/24 08:30 O2 Flow Rate 3 02/05/24 08:30 BMI result Body Mass Index 30.2 Const: General: comfortable and no acute distress Orientation/consciousness: patient oriented x3 HEENT: Ears: hearing grossly normal bilaterally Resp: Effort & Inspection: normal respiratory effort and able to speak in complete sentences Auscultation: clear to auscultation bilaterally Cardio: Rate: regular rate Rhythm: regular rhythm Heart sounds: S1 normal heart sound present and S2 normal heart sound present Bruits: no abdominal aortic bruits, no carotid bruits, no femoral bruits and no renal bruits GI: Palpation (GI): No Abdominal aortic bruit present Neuro: General: patient oriented x3 Cranial nerves: Yes Normal hearing present Sensory Exam: No Sensory deficit (Neuro) Extrem: Other: R1 and R3 toes: Dry gangrene noted throughout both toes. No drainage or bleeding noted. No new wounds noted. Palpable DP pulses. Results Labs 02/02/24 12:57 02/05/24 06:38 Labs: Abnormal lab results 02/04/24 02/04/24 02/05/24 Range/Units 16:15 20:29 06:38 Potassium 5.3 H (3.3-5.1) mmol/L Anion Gap 25 H (12-20) BUN 73 H (9-16) mg/dL Creatinine 11.07 H* (0.5-1.4) mg/dL POC Glucose 145 H 120 H (60-115) mg/dL Random Glucose 51 L* (60-115) mg/dL BMP 02/05/24 06:38 Sodium 142 Potassium 5.3 H Chloride 100 Carbon Dioxide 22 BUN 73 H Creatinine 11.07 H* Calcium 8.4 All other labs normal. Assessment and Plan (1) Infection of toe: Status: Acute Beau presented to the ER for concerns of ongoing pain to his right foot. He is supposed to see us outpatient for further evaluation and treatment for the toes. They are noted to have dry gangrene and there is no acute surgical intervention at this time. We will continue to monitor him. For wound care, we suggest just open to the air. Thank you for the consult. If there are any questions or concerns, please do not hesitate to reach out to us. Procedures Date of Service Date of Service: 02/05/24
[2024-02-05] MEDS: Acetaminophen 325 MG TABLET 650 MG PO (15:20)
[2024-02-05] MEDS: allopurinoL 100 MG TABLET PO (16:22)
--- NOTE | 2024-02-05 16:26 | P.CNID_ITS ---
History of Present Illness Data of Consult Service Date: 02/05/24 Requesting physician: Mya Reid Primary Care Provider: Shayla Augustine NP HPI Reason for consult: painful right foot He presents with painful right foot and has been in ER off and on since January 04. He was given po Doxycycline and then had not responded to cephalosporins earlier in month. He has dry gangrene and seen by Vascular. Review of Systems 2 Review of Systems: Yes all other systems are reviewed and are negative [facility] Past Medical History Medical History (Updated 02/05/24 @ 16:30 by Norma Beasley MD) Dry gangrene Chronic combined systolic and diastolic CHF (congestive heart failure) ESRD on dialysis Acute on chronic systolic and diastolic heart failure, NYHA class 3 HFrEF (heart failure with reduced ejection fraction) ESRD (end stage renal disease) Anemia ESRD (end stage renal disease) Chronic pericardial effusion Arthritis Asthma Restless leg syndrome Occlusive thrombus Pulmonary edema ROBERT (obstructive sleep apnea) Type 2 diabetes mellitus Hyperlipidemia Hypertension A-V fistula Falling Family History Family History Father No problems noted. Mother No problems noted. Family history: reviewed and not pertinent Surgical History Surgical History Recurrent pleural effusion Pleural effusion on right (07/13/23) History of surgery H/O colonoscopy Social History Social History Household Members: Children Household Members Other:: son Housing: Apartment Do you presently have visiting nurse or other home services: Yes (daily for BP and POC check) Alcohol intake: never Comment: counts correct Patient Tobacco Use Status: Former Tobacco user Tobacco use type: Cigarette Smoked in Last 30 Days: No Second Hand Smoke Exposure: No Use of substances other than those prescribed or required for medical reasons: No Currently Displaying Signs/Symptoms of Drug Intoxication Withdrawal: No Have you been hit, kicked, punched, or otherwise hurt by someone within the past year? If so, by whom?: No Do you feel safe in your current relationship?: Yes Is there a partner from a previous relationship who is making you feel unsafe now?: No Are you made to feel afraid or neglected: No Advance Directives: Yes Advance Directives on File: Yes Advance Directives Date on File: 10/04/23 Do you have a plan to hurt others: No Plan Recently lost weight without trying: No Eating poorly because of decreased appetite: No Nutrition Risks: No Nutritional Risk Poor oral hygiene: No service: No Meds Allergies Allergy/AdvReac Type Severity Reaction Status Date / Time No Known Allergies Allergy Verified 02/02/24 11:29 Active Medications: Current Medications Acetaminophen (Acetaminophen 325 Mg Tablet) 650 mg PO Q6H PRN PRN Reason: Pain, Mild (Pain Scale 1-3), fever or headache Last Admin: 02/05/24 15:20 Dose: 650 mg Albuterol Sulfate (Albuterol Sulfate 90 Mcg 8 Gm Inhaler) 2 puff INHALE Q4H PRN PRN Reason: Shortness Of Breath Albuterol/Ipratropium (Albuterol/Iprat 2.5/0.5mg 3 Ml Ampul.Neb) 3 ml INHALE QID PRN PRN Reason: Wheezing Allopurinol (Allopurinol 100 Mg Tablet) 100 mg PO MOWEFR@1600 [facility] Last Admin: 02/05/24 16:22 Dose: 100 mg Aspirin (Aspirin Enteric Coated 81 Mg Tablet.Dr) 81 mg PO DAILY [facility] Last Admin: 02/05/24 09:48 Dose: 81 mg Atorvastatin Calcium (Atorvastatin Calcium 40 Mg Tablet) 40 mg PO DAILY [facility] Last Admin: 02/05/24 09:48 Dose: 40 mg Benzonatate (Benzonatate 100 Mg Capsule) 100 mg PO TID PRN PRN Reason: Cough Calcium Carbonate (Calcium Carbonate 750 Mg Tab.Chew) 750 mg PO Q4H PRN PRN Reason: Heartburn Carvedilol (Carvedilol 6.25 Mg Tablet) 6.25 mg PO BID [facility]; Protocol Last Admin: 02/05/24 09:48 Dose: 6.25 mg Doxazosin Mesylate (Doxazosin Mesylate 2 Mg Tablet) 4 mg PO BEDTIME [facility]; Protocol Last Admin: 02/04/24 20:07 Dose: 4 mg Fluticasone Propionate (Fluticasone Propionate Nasal 16 Gm [place]) 1 spray NOSTRIL-B BID [facility] Last Admin: 02/05/24 10:16 Dose: Not Given Fluticasone/Umeclidinium/Vilanterol (Fluticasone/Umeclidinium/Vilanterol 200/62.5/25 Blst.W.Dev) 1 puff INHALE RDAILY [facility] Last Admin: 02/05/24 07:51 Dose: 1 puff Furosemide (Furosemide 40 Mg Tablet) 80 mg PO DAILY [facility]; Protocol Last Admin: 02/05/24 09:47 Dose: 80 mg Glucose (Glucose Gel 15 Gm Gel..Gram.) 15 gm PO Q15M PRN; Protocol PRN Reason: per Hypoglycemia Standing Ord. Heparin Sodium (Porcine) (Heparin Sodium,Porcine 5,000 Unit/Ml Vial) 5,000 unit SUBCUT Q8H [facility] Last Admin: 02/05/24 16:22 Dose: 5,000 unit Hydralazine HCl (Hydralazine Hcl 25 Mg Tablet) 25 mg PO TID [facility]; Protocol Last Admin: 02/05/24 16:22 Dose: 25 mg Hydromorphone HCl (Hydromorphone Hcl 0.5 Mg/0.5 Ml Syringe) 0.5 mg IVPUSH Q3H PRN; Protocol PRN Reason: Pain, Severe (Pain Scale 7-10) Last Admin: 02/05/24 14:01 Dose: 0.5 mg Cefepime HCl 0.5 gm/ Sodium (Chloride) 50 mls @ 100 mls/hr IV Q24H [facility] Last Infusion: 02/05/24 10:45 Dose: Infused Vancomycin HCl 500 mg/ Sodium (Chloride) 110 mls @ 110 mls/hr IV MoWeFr@1900 [place] Dextrose (D10) 250 mls @ 750 mls/hr IV Q15M PRN; Protocol PRN Reason: per Hypoglycemia Standing Ord. Insulin Glargine (Insulin Glargine,Hum.Rec.Anlog 100 Unit/Ml 10 Ml Vial) 16 unit SUBCUT BEDTIME [facility] Last Admin: 02/04/24 21:15 Dose: 16 unit Insulin Human Lispro (Insulin Lispro 100 Unit/Ml 3 Ml Vial) 0 unit SUBCUT QIDACHS [facility]; Protocol Last Admin: 02/05/24 12:23 Dose: Not Given Labetalol HCl (Labetalol Hcl 100 Mg/20 Ml Vial) 5 mg IVPUSH Q4H PRN PRN Reason: SBP >180 Last Admin: 02/05/24 07:51 Dose: 5 mg Losartan Potassium (Losartan Potassium 50 Mg Tablet) 50 mg PO DAILY [facility]; Protocol Last Admin: 02/05/24 09:48 Dose: 50 mg Magnesium Hydroxide (Milk Of Magnesia 30 Ml Oral.Susp) 30 ml PO DAILY PRN PRN Reason: Constipation Melatonin (Melatonin 3 Mg Tablet) 6 mg PO BEDTIME PRN PRN Reason: Insomnia Last Admin: 02/04/24 19:48 Dose: 6 mg Omeprazole (Omeprazole 20 Mg Capsule.Dr) 20 mg PO DAILY@0630 [facility] Last Admin: 02/05/24 04:56 Dose: 20 mg Ondansetron HCl (Ondansetron Hcl 4 Mg/2 Ml Vial) 4 mg IVPUSH Q8H PRN PRN Reason: Nausea and Vomiting Oxycodone HCl (Oxycodone Hcl Immed Release 5 Mg Tablet) 5 mg PO Q4H PRN PRN Reason: Pain, Severe (Pain Scale 7-10) Last Admin: 02/05/24 15:20 Dose: 5 mg Pharmacy Consult (Consult Rx Vancomycin Dosing) 1 each MISCELLANE DAILY PRN PRN Reason: Consult order Pregabalin (Pregabalin 75 Mg Capsule) 75 mg PO DAILY [facility] Last Admin: 02/05/24 09:47 Dose: 75 mg Senna/Docusate Sodium (Sennosides/Docusate Sodium Tablet) 1 tab PO DAILY PRN PRN Reason: Constipation Sevelamer Carbonate (Sevelamer Carbonate Tablet 800 Mg Tablet) 800 mg PO TIDWM [facility] Last Admin: 02/05/24 16:22 Dose: 800 mg Sodium Chloride (0.9 % Sodium Chloride Flush 3 Ml Syringe) 3 ml [facility] Last Admin: 02/05/24 16:22 Dose: 3 ml Home Medications ?Medication ?Instructions ?Recorded ?Confirmed ?Last Taken ?Type albuterol sulfate 90 mcg/actuation 2 puff inhalation Q4H PRN 04/19/22 02/02/24 Unknown History aerosol inhaler Shortness Of Breath allopurinol 100 mg tablet 100 mg PO MOWEFR@1600 04/19/22 02/02/24 11/27/23 History atorvastatin 40 mg tablet 40 mg PO DAILY 04/19/22 02/02/24 11/27/23 History doxazosin 4 mg tablet 4 mg PO BEDTIME 04/19/22 02/02/24 11/27/23 History furosemide 80 mg tablet 80 mg PO DAILY 04/19/22 02/02/24 11/27/23 History ipratropium 0.5 mg-albuterol 3 mg 3 ml inhalation QID PRN Wheezing 04/19/22 02/02/24 Unknown History (2.5 mg base)/3 mL nebulization soln omeprazole 20 mg capsule,delayed 20 mg PO DAILY@0630 04/19/22 02/02/24 11/27/23 History release sennosides 8.6 mg-docusate sodium 1 tab PO DAILY PRN Constipation 04/19/22 02/02/24 04/19/22 History 50 mg tablet (Senna-Time S) insulin glargine 100 unit/mL (3 22 unit subcut BEDTIME 04/10/23 02/02/24 11/27/23 History mL) subcutaneous pen (Lantus Solostar U-100 Insulin) insulin lispro 100 unit/mL 1 sliding scale dose subcut TIDAC 04/10/23 02/02/24 11/27/23 History subcutaneous pen aspirin 81 mg tablet,delayed 81 mg PO DAILY 06/20/23 02/02/24 11/27/23 History release pregabalin 75 mg capsule 75 mg PO DAILY 06/20/23 02/02/24 11/27/23 History fluticasone fur. 200 mcg-umeclid 1 ea inhalation DAILY 01/24/24 02/02/24 Unknown History 62.5 mcg-vilant 25 mcg inhalat.powder (Trelegy Ellipta) hydralazine 25 mg tablet 25 mg PO TID 01/24/24 02/02/24 Unknown History sucroferric oxyhydroxide 500 mg 500 mg PO TID 01/24/24 02/02/24 Unknown History chewable tablet (Velphoro) Physical Exam 2 Vital Signs: Vital Signs: Last Vital Signs Temp 97.5 F 02/05/24 16:00 Pulse 75 02/05/24 16:00 Resp 16 02/05/24 16:00 BP 146/63 H 02/05/24 16:00 Pulse Ox 95 02/05/24 16:00 O2 Del Method Nasal Cannula 02/05/24 16:00 O2 Flow Rate 4 02/05/24 16:00 BMI result Body Mass Index 30.2 Const: General: cooperative HEENT: Head: Yes normal to inspection Face and sinus: Yes normal facial exam Mouth: Normal oral and palatal mucosa present Teeth and gingiva: d entition normal Eyes: General: appearance normal, both eyes and all related structures P upils: Equal, round and reactive pupils present Resp: Effort & Inspection: normal respiratory effort Cardio: Rate: regular rate Rhythm: regular rhythm GI: Palpation (GI): Soft to palpation and nontender : General: Yes no CVA tenderness Back/Spine/Pelvis: Back: no CVA tenderness Skin: General skin exam: no rashes or lesions noted Neuro: General: moves all extremities Cranial nerves: Yes Equal, round and reactive pupils present Extrem: Other: dry gangrene right first and third toes Psych: Appearance: grossly normal Results Labs 02/02/24 12:57 02/05/24 06:38 Labs: BMP 02/05/24 06:38 Sodium 142 Potassium 5.3 H Chloride 100 Carbon Dioxide 22 BUN 73 H Creatinine 11.07 H* Calcium 8.4 Microbiology Microbiology Results: Microbiology 02/02/24 16:45 Toe Gram Stain - Final 02/02/24 16:45 Toe Routine Culture - Final Methicillin Res Staph Aureus Enterococcus faecalis 02/02/24 16:33 Blood - Venous Blood Culture - Preliminary No growth after 48 hours. 02/02/24 12:57 Blood - Venous Blood Culture - Preliminary No growth after 48 hours. Assessment and Plan (1) ESRD (end stage renal disease): Status: Acute (2) Dry gangrene: Status: Acute Plan He has DM and renal failure. The toes lesions will not likely respond to long term acute care registered nurse antibiotics Would stop antibiotics as not helping and follow Vascular outpatient if not candidate for amputation now.
[2024-02-05 16:47] LABS: Glucose, Whole Blood 141 mg/dL (60-115)
[2024-02-05 18:46] LABS: Vancomycin Random 15.4 mcg/mL (15-20)
[2024-02-05] MEDS: Doxazosin Mesylate 2 MG TABLET 4 MG PO (20:44)
--- NOTE | 2024-02-05 20:58 | P.PNNP_ITS ---
Subjective Subjective Date of Service: 02/05/24 Interval history: Seen and examined, events noted Physical Exam 2 Vital Signs: Vital Signs: Last Vital Signs Temp 98 F 02/05/24 19:57 Pulse 70 02/05/24 19:57 Resp 18 02/05/24 20:43 BP 153/75 H 02/05/24 19:57 Pulse Ox 96 02/05/24 19:57 O2 Del Method Nasal Cannula 02/05/24 19:57 O2 Flow Rate 3 02/05/24 19:57 BMI result Body Mass Index 30.2 Const: Other: The patient is a somewhat chronically ill-appearing 68-year-old. He looks uncomfortable. General: cooperative, comfortable and no acute distress O rientation/consciousness: patient oriented x3 HEENT: Other: Face is symmetrical. Mucous membranes moist. Head: Yes normal to inspection Ears: hearing grossly normal bilaterally Face and sinus: Yes normal facial exam Mouth: Normal oral and palatal mucosa present Teeth and gingiva: dentition normal Eyes: Other: Pupils are round equal, conjunctivae clear General: appearance normal, both eyes and all related structures Pupils: Equal, round and reactive pupils present Neck: Other: No definite JVD Resp: Effort & Inspection: normal respiratory effort and able to speak in complete sentences Auscultation: clear to auscultation bilaterally Cardio: Rate: regular rate Rhythm: regular rhythm Heart sounds: S1 normal heart sound present and S2 normal heart sound present Bruits: no abdominal aortic bruits, no carotid bruits, no femoral bruits and no renal bruits GI: Other: Abdomen is soft and nontender Palpation (GI): No Abdominal aortic bruit present, Soft to palpation and nontender : General: Yes no CVA tenderness Back/Spine/Pelvis: Back: no CVA tenderness Skin: Other: The patient has blackening of the distal portions of the right great toe and middle toe. There is some skin breakdown near the distal toenail of the right great toe from which I can express some dark purulent material. General skin exam: no rashes or lesions noted Neuro: Other: The patient is awake and alert. Cranial nerves are grossly intact. He moves his extremities symmetrically. General: patient oriented x3 and moves all extremities Cranial nerves: Y es Equal, round and reactive pupils present and Yes Normal hearing present S ensory Exam: No Sensory deficit (Neuro) Extrem: Other: dry gangrene right first and third toes Psych: Appearance: grossly normal Objective Data Labs 02/02/24 12:57 02/05/24 06:38 Labs: Laboratory Results - last 24 hr 02/05/24 02/05/24 02/05/24 06:35 06:38 06:57 Sodium 142 Potassium 5.3 H Chloride 100 Carbon Dioxide 22 Anion Gap 25 H BUN 73 H Creatinine 11.07 H* Estim Creat Clear Calc 5.7 Estimated GFR 5 POC Glucose 61 66 Random Glucose 51 L* Calcium 8.4 Random Vancomycin 02/05/24 02/05/24 02/05/24 07:14 11:43 16:39 Sodium Potassium Chloride Carbon Dioxide Anion Gap BUN Creatinine Estim Creat Clear Calc Estimated GFR POC Glucose 70 108 141 H Random Glucose Calcium Random Vancomycin 02/05/24 18:03 Sodium Potassium Chloride Carbon Dioxide Anion Gap BUN Creatinine Estim Creat Clear Calc Estimated GFR POC Glucose Random Glucose Calcium Random Vancomycin 15.4 Microbiology Microbiology Results: Microbiology 02/02/24 16:45 Toe Gram Stain - Final 02/02/24 16:45 Toe Routine Culture - Final Methicillin Res Staph Aureus Enterococcus faecalis 02/02/24 16:33 Blood - Venous Blood Culture - Preliminary No growth after 48 hours. 02/02/24 12:57 Blood - Venous Blood Culture - Preliminary No growth after 48 hours. Procedures Date of Service Date of Service: 02/05/24 Assessment & Plan Assessment and plan (1) ESRD on dialysis: Status: Chronic Plan usually has HD M-W- at [facility] dialysis- first shift h/o IR/ thoracic fu for recurrent pleural effusion non adherence with h/o terminating treatments early ongoing treatment for R le gangrene / pvd htn not controlled REC cont HD MWF schedule optimize volume status improve adherence vascular surgery eval for gangrene toe and abx for celluliis / osteo chf- coreg and entresto as op no need for NAYE (Hb > 11) phosphate binders will increase losartan to 50mg , next amlodipine if bp still not controlled renal diet Time Spent With Patient Time: Total time managing care of this patient today ____ minutes. Progress Note: Quality Stroke Does the patient have a stroke diagnosis?: No
[2024-02-05 21:02] LABS: Glucose, Whole Blood 175 mg/dL (60-115)
[2024-02-05] MEDS: Fluticasone Propionate Nasal 16 GM SPRAY 1 SPRAY NOSTRIL-B (22:24)
[2024-02-06] VITALS (11 sets, daily range): BP systolic 136–171; BP diastolic 63–87; PULSE 71–85; RESP 16–20; TEMP 36.4–37.1; O2SAT 90–98
[2024-02-06] MEDS: HYDROmorphone HCl 0.5 MG/0.5 ML SYRINGE IVPUSH ×2 (00:03→21:11)
[2024-02-06 03:30] LABS: Glucose, Whole Blood 63 mg/dL (60-115)
[2024-02-06] MEDS: Heparin Sodium,Porcine 5,000 UNIT/ML VIAL 5000 UNIT SUBCUT ×3 (03:39→21:12)
[2024-02-06 04:05] LABS: Glucose, Whole Blood 110 mg/dL (60-115)
[2024-02-06] MEDS: Albuterol Sulfate 90 MCG 8 GM INHALER 2 PUFF INHALE (06:36)
[2024-02-06] MEDS: Omeprazole 20 MG CAPSULE.DR PO (06:39)
[2024-02-06] MEDS: Fluticasone/Umeclidinium/Vilanterol 200/62.5/25 BLST.W.DEV 1 PUFF INHALE (07:58)
[2024-02-06 08:00] LABS: Glucose, Whole Blood 125 mg/dL (60-115)
[2024-02-06] MEDS: Furosemide 40 MG TABLET 80 MG PO (09:47)
[2024-02-06] MEDS: Losartan Potassium 50 MG TABLET PO (09:47)
[2024-02-06] MEDS: Atorvastatin Calcium 40 MG TABLET PO (09:47)
[2024-02-06] MEDS: carvediloL 6.25 MG TABLET PO ×2 (09:47→21:11)
[2024-02-06] MEDS: hydrALAZINE HCl 25 MG TABLET PO ×3 (09:47→21:11)
[2024-02-06] MEDS: Aspirin Enteric Coated 81 MG TABLET.DR PO (09:48)
[2024-02-06] MEDS: Pregabalin 75 MG CAPSULE PO (09:48)
[2024-02-06] MEDS: Sevelamer Carbonate Tablet 800 MG TABLET PO ×3 (09:48→16:38)
[2024-02-06] MEDS: 0.9 % Sodium Chloride Flush 3 ML SYRINGE IVFLUSH ×3 (09:49→21:11)
--- NOTE | 2024-02-06 10:21 | HO.VASCPN ---
Subjective Subjective Date of Service: 02/06/24 Interval history: Beau is doing well this morning. He is eating, sleeping, and drinking well. He states his foot does not hurt this morning. Physical Exam Vital Signs: Vital Signs: Last Vital Signs Temp 97.7 F 02/06/24 08:00 Pulse 76 02/06/24 08:02 Resp 18 02/06/24 08:02 BP 142/86 H 02/06/24 08:00 Pulse Ox 96 02/06/24 08:00 O2 Del Method Room Air 02/06/24 08:00 O2 Flow Rate 2 02/06/24 03:06 BMI result Body Mass Index 30.2 Const: General: comfortable and no acute distress Orientation/consciousness: patient oriented x3 HEENT: Ears: hearing grossly normal bilaterally Resp: Effort & Inspection: normal respiratory effort and able to speak in complete sentences Auscultation: clear to auscultation bilaterally Cardio: Rate: regular rate Rhythm: regular rhythm Heart sounds: S1 normal heart sound present and S2 normal heart sound present Bruits: no abdominal aortic bruits, no carotid bruits, no femoral bruits and no renal bruits GI: Palpation (GI): No Abdominal aortic bruit present Neuro: General: patient oriented x3 Cranial nerves: Yes CN's II-XII intact bilaterally Extrem: Other: R1 & 3 toes: dry gangrene noted. Progress Note: A&P Assessment and plan (1) Dry gangrene: Status: Acute Assessment and Plan: Beau remains stable. At this point, the dry gangrene is stable and there are no acute vascular surgery interventions. We will continue to monitor and have him follow up with us outpatient. If there are any questions or concerns, please do not hesitate to reach out to us. Time Spent With Patient Time: Total time managing care of this patient today __20__ minutes. Procedures Date of Service Date of Service: 02/06/24 Quality Stroke Does the patient have a stroke diagnosis?: No VTE Prior VTE?: No VTE Risk Level:: Medical - moderate - high VTE Device Contraindication: Treatment Not Indicated VTE Drug Contraindication: N/A - Med Ordered
[2024-02-06] MEDS: cefEPime HCl 0.5 GM in 0.9 % Sodium Chloride 50 ML IV (10:28)
[2024-02-06] MEDS: Fluticasone Propionate Nasal 16 GM SPRAY 1 SPRAY NOSTRIL-B ×2 (10:30→21:11)
[2024-02-06 11:22] LABS: Glucose, Whole Blood 126 mg/dL (60-115)
[2024-02-06] MEDS: ondansetron HCL 4 MG/2 ML VIAL IVPUSH (11:30)
--- NOTE | 2024-02-06 11:44 | PM.EVENT ---
Event Note Date of Service: 02/06/24 Event Note: I was called by Dr Reid about concerns from the patient and his nephew about his toes/infection. He has been yelling at the staff about why his toes are not being taken care of and why we can't do anything while he is in the hospital. The pt's nurse, Sonya, reached out to interpreting services. We utilized the pyrotechnic assembler. The pt states he does not understand why his black toes do not constitute an emergency and why we cannot do anything for him. We discussed with him that it is not an emergent case, he is stable with stable VS as well as no fever/chills/signs of infection. We discussed that the pt has an appt at our office on MondayFeb 12, at 0900 and we will then be able to discuss what further evaluation and treatment that he will require. We discussed that we understand he is frustrated about the situation but it does not require an emergent intervention. We encouraged him strongly to come on Monday so we can discuss options and the treatment plan. The pt and nephew are both very upset about this, despite discussion from the hospitalist, myself (in conjunction with Dr Cannon), and the nursing staff. We will follow up with him on Monday. Time Spent With Patient Time: Total time managing care of this patient today ___25_ minutes.
--- NOTE | 2024-02-06 14:36 | MHC.CM.PN ---
EMR reviewed and pt is being recommended to discharge home and follow up outpatient with vascular next week on February 12 at 9am, as emergent surgery is not advised at this time. This CM met with pt and his son/HCP Nestor present at bedside with the assistance of a foreign exchange dealer to discuss the discharge plan and give him his second IMM. Pt and his son do not agree with him being discharged and have decided to move forward with appealing his discharge. Hospitalist aware.
--- NOTE | 2024-02-06 15:02 | HO.PM.IMPN ---
Subjective Subjective Date of Service: 02/06/24 Interval History: Right foot cellulitis vs dry gangrene Review of Systems foot seems similar,denies new c/o. Physical Exam Vital Signs: Vital Signs: Last Vital Signs Temp 97.6 F 02/06/24 12:00 Pulse 79 02/06/24 12:00 Resp 20 02/06/24 12:00 BP 136/68 02/06/24 12:00 Pulse Ox 95 02/06/24 12:00 O2 Del Method Oxymask 02/06/24 12:00 O2 Flow Rate 2 02/06/24 03:06 BMI result Body Mass Index 30.2 General: AOx3. Resp: air entry fair , no rales or wheezing CVS: S1, S2, RRR GI: +BS, NT, no distention Skin: Warm, dry Neuro: Cranial nerves II-XII grossly intact bilaterally. Motor grossly intact bilaterally Extremities: Right foot as pictured below:see pic h&P note. Objective Data Active Medications Acetaminophen (Acetaminophen 325 Mg Tablet) 650 mg PO Q6H PRN PRN Reason: Pain, Mild (Pain Scale 1-3), fever or headache Last Admin: 02/05/24 15:20 Dose: 650 mg Documented By: GARCIA Albuterol Sulfate (Albuterol Sulfate 90 Mcg 8 Gm Inhaler) 2 puff INHALE Q4H PRN PRN Reason: Shortness Of Breath Last Admin: 02/06/24 06:36 Dose: 2 puff Documented By: JOSE JUAN Albuterol/Ipratropium (Albuterol/Iprat 2.5/0.5mg 3 Ml Ampul.Neb) 3 ml INHALE QID PRN PRN Reason: Wheezing Allopurinol (Allopurinol 100 Mg Tablet) 100 mg PO MOWEFR@1600 [facility] Last Admin: 02/05/24 16:22 Dose: 100 mg Documented By: GARCIA Aspirin (Aspirin Enteric Coated 81 Mg Tablet.) 81 mg PO DAILY [facility] Last Admin: 02/06/24 09:48 Dose: 81 mg Documented By: RODRI Atorvastatin Calcium (Atorvastatin Calcium 40 Mg Tablet) 40 mg PO DAILY [facility] Last Admin: 02/06/24 09:47 Dose: 40 mg Documented By: RODRI Benzonatate (Benzonatate 100 Mg Capsule) 100 mg PO TID PRN PRN Reason: Cough Calcium Carbonate (Calcium Carbonate 750 Mg Tab.Chew) 750 mg PO Q4H PRN PRN Reason: Heartburn Carvedilol (Carvedilol 6.25 Mg Tablet) 6.25 mg PO BID [facility]; Protocol Last Admin: 02/06/24 09:47 Dose: 6.25 mg Documented By: RODRI Doxazosin Mesylate (Doxazosin Mesylate 2 Mg Tablet) 4 mg PO BEDTIME [facility]; Protocol Last Admin: 02/05/24 20:44 Dose: 4 mg Documented By: JOSE JUAN Fluticasone Propionate (Fluticasone Propionate Nasal 16 Gm [place]) 1 spray NOSTRIL-B BID [facility] Last Admin: 02/06/24 10:30 Dose: 1 spray Documented By: RODRI Fluticasone/Umeclidinium/Vilanterol (Fluticasone/Umeclidinium/Vilanterol 200/62.5/25 Blst.W.Dev) 1 puff INHALE RDAILY [facility] Last Admin: 02/06/24 07:58 Dose: 1 puff Documented By: KARTIK Furosemide (Furosemide 40 Mg Tablet) 80 mg PO DAILY [facility]; Protocol Last Admin: 02/06/24 09:47 Dose: 80 mg Documented By: RODRI Glucose (Glucose Gel 15 Gm Gel..Gram.) 15 gm PO Q15M PRN; Protocol PRN Reason: per Hypoglycemia Standing Ord. Heparin Sodium (Porcine) (Heparin Sodium,Porcine 5,000 Unit/Ml Vial) 5,000 unit SUBCUT Q8H [facility] Last Admin: 02/06/24 11:37 Dose: 5,000 unit Documented By: RODRI Hydralazine HCl (Hydralazine Hcl 25 Mg Tablet) 25 mg PO TID [facility]; Protocol Last Admin: 02/06/24 09:47 Dose: 25 mg Documented By: RODRI Hydromorphone HCl (Hydromorphone Hcl 0.5 Mg/0.5 Ml Syringe) 0.5 mg IVPUSH Q3H PRN; Protocol PRN Reason: Pain, Severe (Pain Scale 7-10) Last Admin: 02/06/24 00:03 Dose: 0.5 mg Documented By: JOSE JUAN Cefepime HCl 0.5 gm/ Sodium (Chloride) 50 mls @ 100 mls/hr IV Q24H [facility] Last Infusion: 02/06/24 11:12 Dose: Infused Documented By: RODRI Vancomycin HCl 500 mg/ Sodium (Chloride) 110 mls @ 110 mls/hr IV MoWeFr@1900 [facility] Dextrose (D10) 250 mls @ 750 mls/hr IV Q15M PRN; Protocol PRN Reason: per Hypoglycemia Standing Ord. Insulin Glargine (Insulin Glargine,Hum.Rec.Anlog 100 Unit/Ml 10 Ml Vial) 16 unit SUBCUT BEDTIME [facility] Last Admin: 02/04/24 21:15 Dose: 16 unit Documented By: HIRAL Insulin Human Lispro (Insulin Lispro 100 Unit/Ml 3 Ml Vial) 0 unit SUBCUT QIDACHS [facility]; Protocol Last Admin: 02/06/24 11:23 Dose: Not Given Documented By: RODRI Non-Admin Reason: No Insulin Coverage Labetalol HCl (Labetalol Hcl 100 Mg/20 Ml Vial) 5 mg IVPUSH Q4H PRN PRN Reason: SBP >180 Last Admin: 02/05/24 07:51 Dose: 5 mg Documented By: GARCIA Losartan Potassium (Losartan Potassium 50 Mg Tablet) 50 mg PO DAILY [facility]; Protocol Last Admin: 02/06/24 09:47 Dose: 50 mg Documented By: RODRI Magnesium Hydroxide (Milk Of Magnesia 30 Ml Oral.Susp) 30 ml PO DAILY PRN PRN Reason: Constipation Melatonin (Melatonin 3 Mg Tablet) 6 mg PO BEDTIME PRN PRN Reason: Insomnia Last Admin: 02/04/24 19:48 Dose: 6 mg Documented By: HIRAL Omeprazole (Omeprazole 20 Mg Capsule.) 20 mg PO DAILY@0630 [facility] Last Admin: 02/06/24 06:39 Dose: 20 mg Documented By: JOSE JUAN Ondansetron HCl (Ondansetron Hcl 4 Mg/2 Ml Vial) 4 mg IVPUSH Q8H PRN PRN Reason: Nausea and Vomiting Last Admin: 02/06/24 11:30 Dose: 4 mg Documented By: RODRI Oxycodone HCl (Oxycodone Hcl Immed Release 5 Mg Tablet) 5 mg PO Q4H PRN PRN Reason: Pain, Severe (Pain Scale 7-10) Last Admin: 02/05/24 22:26 Dose: 5 mg Documented By: JOSE JUAN Pharmacy Consult (Consult Rx Vancomycin Dosing) 1 each MISCELLANE DAILY PRN PRN Reason: Consult order Pregabalin (Pregabalin 75 Mg Capsule) 75 mg PO DAILY [facility] Last Admin: 02/06/24 09:48 Dose: 75 mg Documented By: RODRI Senna/Docusate Sodium (Sennosides/Docusate Sodium Tablet) 1 tab PO DAILY PRN PRN Reason: Constipation Sevelamer Carbonate (Sevelamer Carbonate Tablet 800 Mg Tablet) 800 mg PO TIDWM [facility] Last Admin: 02/06/24 11:35 Dose: 800 mg Documented By: RODRI Sodium Chloride (0.9 % Sodium Chloride Flush 3 Ml Syringe) 3 ml IVFLUSH QSHIFT [facility] Last Admin: 02/06/24 09:49 Dose: 3 ml Documented By: RODRI Labs 02/02/24 12:57 02/05/24 06:38 Labs: Laboratory Results - last 24 hr 02/05/24 02/05/24 02/05/24 16:39 18:03 20:51 POC Glucose 141 H 175 H Random Vancomycin 15.4 02/06/24 02/06/24 02/06/24 03:21 03:59 07:34 POC Glucose 63 110 125 H Random Vancomycin 02/06/24 11:18 POC Glucose 126 H Random Vancomycin Assessment and Plan (1) Dry gangrene: Status: Acute Assessment and Plan: 68-year-old Armenian-speaking male with a PMH significant for?ESRD on HD M/W/F last dialyzed earlier today, insulin-dependent type 2 diabetes, peripheral vascular disease, HFrEF (EF35%), HTN, HLD, chronically on 2L home O2, GERD, and ROBERT on CPAP who presents to the ED with?worsening right great and 3rd toe infection. Pt will be admitted to the hospital for treatment and further evaluation of right foot cellulitis that failed outpatient therapy with question of osteomyelitis as well as hypotensive urgency. Right foot cellulitis vs dry gangrene -Secondary to great and 3rd toe dry gangrene in the setting of peripheral vascular disease(01/26/24 went home outpatient therapy on doxycycline x7 days). Right foot x-ray showed questionable erosion at 3rd distal phalanx, CRP 7.61, ESR 34 No sepsis. Discussed with ID and vascular-patient will need outpatient management for foot dry gangrene, defer antibiotics. Htn uncontrolled moniter bp closely continue carvedilol, losartan, and doxazosin ESRD on HD M/W/F Continue furosemide, doxazosin Follow BMP Nephrology consult to establish HD while in the hospital Insulin-dependent type 2 diabetes: fs in 120-170's Sliding-scale insulin, Lantus Diabetic diet HLD/PAD Continue aspirin, statin Gout Continue allopurinol GERD PPI Full Code DVT Prophylaxis: Heparin ongoing hospitalization need for treatment of?right foot cellulitis that failed outpatient therapy concerning for possible clelulitis vs dry gangrene-patient id outpatient management with vascular surgery for dry gangrene Patient was offered for discharge but patient declined and pill to discharge. Quality Stroke Does the patient have a stroke diagnosis?: No VTE Prior VTE?: No VTE Risk Level:: Medical - moderate - high VTE Device Contraindication: Treatment Not Indicated VTE Drug Contraindication: N/A - Med Ordered
[2024-02-06 15:51] LABS: Glucose, Whole Blood 154 mg/dL (60-115)
[2024-02-06] MEDS: oxyCODONE HCl Immed Release 5 MG TABLET PO (16:41)
[2024-02-06 20:42] LABS: Glucose, Whole Blood 100 mg/dL (60-115)
[2024-02-06] MEDS: Doxazosin Mesylate 2 MG TABLET 4 MG PO (21:10)
--- NOTE | 2024-02-06 21:56 | P.PNNP_ITS ---
Subjective Subjective Date of Service: 02/06/24 Interval history: Seen and examined, evnts noted Physical Exam 2 Vital Signs: Vital Signs: Last Vital Signs Temp 97.9 F 02/06/24 19:38 Pulse 85 02/06/24 19:38 Resp 18 02/06/24 21:11 BP 170/63 H 02/06/24 19:38 Pulse Ox 90 L 02/06/24 19:38 O2 Del Method Room Air 02/06/24 19:38 O2 Flow Rate 2 02/06/24 03:06 BMI result Body Mass Index 30.2 Const: Other: The patient is a somewhat chronically ill-appearing 68-year-old. He looks uncomfortable. General: cooperative, comfortable and no acute distress O rientation/consciousness: patient oriented x3 HEENT: Other: Face is symmetrical. Mucous membranes moist. Head: Yes normal to inspection Ears: hearing grossly normal bilaterally Face and sinus: Yes normal facial exam Mouth: Normal oral and palatal mucosa present Teeth and gingiva: dentition normal Eyes: Other: Pupils are round equal, conjunctivae clear General: appearance normal, both eyes and all related structures Pupils: Equal, round and reactive pupils present Neck: Other: No definite JVD Resp: Effort & Inspection: normal respiratory effort and able to speak in complete sentences Auscultation: clear to auscultation bilaterally Cardio: Rate: regular rate Rhythm: regular rhythm Heart sounds: S1 normal heart sound present and S2 normal heart sound present Bruits: no abdominal aortic bruits, no carotid bruits, no femoral bruits and no renal bruits GI: Other: Abdomen is soft and nontender Palpation (GI): No Abdominal aortic bruit present, Soft to palpation and nontender : General: Yes no CVA tenderness Back/Spine/Pelvis: Back: no CVA tenderness Skin: Other: The patient has blackening of the distal portions of the right great toe and middle toe. There is some skin breakdown near the distal toenail of the right great toe from which I can express some dark purulent material. General skin exam: no rashes or lesions noted Neuro: Other: The patient is awake and alert. Cranial nerves are grossly intact. He moves his extremities symmetrically. General: patient oriented x3 and moves all extremities Cranial nerves: Y es Equal, round and reactive pupils present and Yes Normal hearing present S ensory Exam: No Sensory deficit (Neuro) Extrem: Other: dry gangrene right first and third toes Psych: Appearance: grossly normal Objective Data Labs 02/02/24 12:57 02/05/24 06:38 Labs: Laboratory Results - last 24 hr 02/06/24 02/06/24 02/06/24 03:21 03:59 07:34 POC Glucose 63 110 125 H 02/06/24 02/06/24 02/06/24 11:18 15:32 20:35 POC Glucose 126 H 154 H 100 Microbiology Microbiology Results: Microbiology 02/02/24 16:45 Toe Gram Stain - Final 02/02/24 16:45 Toe Routine Culture - Final Methicillin Res Staph Aureus Enterococcus faecalis 02/02/24 16:33 Blood - Venous Blood Culture - Preliminary No growth after 48 hours. 02/02/24 12:57 Blood - Venous Blood Culture - Preliminary No growth after 48 hours. Procedures Date of Service Date of Service: 02/06/24 Assessment & Plan Assessment and plan (1) ESRD on dialysis: Status: Chronic Plan usually has HD M-W- at [facility] [place] dialysis- first shift h/o IR/ thoracic fu for recurrent pleural effusion non adherence with h/o terminating treatments early ongoing treatment for R le gangrene / pvd htn not controlled REC cont HD MWF schedule optimize volume status improve adherence vascular surgery eval for gangrene toe and abx for celluliis / osteo chf- coreg and entresto as op no need for NAYE at this time phosphate binders cont adj BP meds as needed renal diet D/C planning Time Spent With Patient Time: Total time managing care of this patient today ____ minutes. Progress Note: Quality Stroke Does the patient have a stroke diagnosis?: No
[2024-02-07] VITALS (9 sets, daily range): BP systolic 142–186; BP diastolic 68–82; PULSE 68–80; RESP 16–18; TEMP 36.6–37.1; O2SAT 92–98
[2024-02-07] MEDS: Heparin Sodium,Porcine 5,000 UNIT/ML VIAL 5000 UNIT SUBCUT ×2 (03:54→13:53)
[2024-02-07] MEDS: Omeprazole 20 MG CAPSULE.DR PO (06:15)
[2024-02-07] MEDS: Fluticasone/Umeclidinium/Vilanterol 200/62.5/25 BLST.W.DEV 1 PUFF INHALE (07:28)
[2024-02-07 08:09] LABS: Glucose, Whole Blood 120 mg/dL (60-115)
[2024-02-07] MEDS: Aspirin Enteric Coated 81 MG TABLET.DR PO (08:09)
[2024-02-07] MEDS: Furosemide 40 MG TABLET 80 MG PO (08:09)
[2024-02-07] MEDS: hydrALAZINE HCl 25 MG TABLET PO ×2 (08:09→13:53)
[2024-02-07] MEDS: Pregabalin 75 MG CAPSULE PO (08:09)
[2024-02-07] MEDS: carvediloL 6.25 MG TABLET PO (08:09)
[2024-02-07] MEDS: 0.9 % Sodium Chloride Flush 3 ML SYRINGE IVFLUSH (08:09)
[2024-02-07] MEDS: Sevelamer Carbonate Tablet 800 MG TABLET PO ×2 (08:10→13:53)
[2024-02-07] MEDS: Fluticasone Propionate Nasal 16 GM SPRAY 1 SPRAY NOSTRIL-B (08:10)
[2024-02-07] MEDS: Atorvastatin Calcium 40 MG TABLET PO (08:10)
[2024-02-07] MEDS: Losartan Potassium 50 MG TABLET PO (08:10)
[2024-02-07] MEDS: cefEPime HCl 0.5 GM in 0.9 % Sodium Chloride 50 ML IV (09:32)
[2024-02-07 11:42] LABS: Glucose, Whole Blood 129 mg/dL (60-115)
--- NOTE | 2024-02-07 12:46 | HO.PM.IMPN ---
Subjective Subjective Date of Service: 02/07/24 Interval History: foot gangrene Review of Systems seems similar has some pain Physical Exam Vital Signs: Vital Signs: Last Vital Signs Temp 98.1 F 02/07/24 07:42 Pulse 78 02/07/24 08:09 Resp 18 02/07/24 07:42 BP 148/78 H 02/07/24 08:10 Pulse Ox 98 02/07/24 07:42 O2 Del Method Oxymask 02/07/24 07:42 O2 Flow Rate 3 02/07/24 07:42 BMI result Body Mass Index 30.2 General: AOx3. Resp: air entry fair , no rales or wheezing CVS: S1, S2, RRR GI: +BS, NT, no distention Skin: Warm, dry Neuro: Cranial nerves II-XII grossly intact bilaterally. Motor grossly intact bilaterally Extremities: Right foot as pictured below:see pic h&P note. Objective Data Active Medications Acetaminophen (Acetaminophen 325 Mg Tablet) 650 mg PO Q6H PRN PRN Reason: Pain, Mild (Pain Scale 1-3), fever or headache Last Admin: 02/05/24 15:20 Dose: 650 mg Documented By: GARCIA Albuterol Sulfate (Albuterol Sulfate 90 Mcg 8 Gm Inhaler) 2 puff INHALE Q4H PRN PRN Reason: Shortness Of Breath Last Admin: 02/06/24 06:36 Dose: 2 puff Documented By: JOSE JUAN Albuterol/Ipratropium (Albuterol/Iprat 2.5/0.5mg 3 Ml Ampul.Neb) 3 ml INHALE QID PRN PRN Reason: Wheezing Allopurinol (Allopurinol 100 Mg Tablet) 100 mg PO MOWEFR@1600 [facility] Last Admin: 02/05/24 16:22 Dose: 100 mg Documented By: GARCIA Aspirin (Aspirin Enteric Coated 81 Mg Tablet.) 81 mg PO DAILY [facility] Last Admin: 02/07/24 08:09 Dose: 81 mg Documented By: NYLA Atorvastatin Calcium (Atorvastatin Calcium 40 Mg Tablet) 40 mg PO DAILY [facility] Last Admin: 02/07/24 08:10 Dose: 40 mg Documented By: NYLA Benzonatate (Benzonatate 100 Mg Capsule) 100 mg PO TID PRN PRN Reason: Cough Calcium Carbonate (Calcium Carbonate 750 Mg Tab.Chew) 750 mg PO Q4H PRN PRN Reason: Heartburn Carvedilol (Carvedilol 6.25 Mg Tablet) 6.25 mg PO BID [facility]; Protocol Last Admin: 02/07/24 08:09 Dose: 6.25 mg Documented By: NYLA Doxazosin Mesylate (Doxazosin Mesylate 2 Mg Tablet) 4 mg PO BEDTIME [facility]; Protocol Last Admin: 02/06/24 21:10 Dose: 4 mg Documented By: JOSE JUAN Fluticasone Propionate (Fluticasone Propionate Nasal 16 Gm [place]) 1 spray NOSTRIL-B BID [facility] Last Admin: 02/07/24 08:10 Dose: 1 spray Documented By: NYLA Fluticasone/Umeclidinium/Vilanterol (Fluticasone/Umeclidinium/Vilanterol 200/62.5/25 Blst.W.Dev) 1 puff INHALE RDAILY [facility] Last Admin: 02/07/24 07:28 Dose: 1 puff Documented By: SHRUTHI Furosemide (Furosemide 40 Mg Tablet) 80 mg PO DAILY [facility]; Protocol Last Admin: 02/07/24 08:09 Dose: 80 mg Documented By: NYLA Glucose (Glucose Gel 15 Gm Gel..Gram.) 15 gm PO Q15M PRN; Protocol PRN Reason: per Hypoglycemia Standing Ord. Heparin Sodium (Porcine) (Heparin Sodium,Porcine 5,000 Unit/Ml Vial) 5,000 unit SUBCUT Q8H [facility] Last Admin: 02/07/24 03:54 Dose: 5,000 unit Documented By: JOSE JUAN Hydralazine HCl (Hydralazine Hcl 25 Mg Tablet) 25 mg PO TID [facility]; Protocol Last Admin: 02/07/24 08:09 Dose: 25 mg Documented By: NYLA Hydromorphone HCl (Hydromorphone Hcl 0.5 Mg/0.5 Ml Syringe) 0.5 mg IVPUSH Q3H PRN; Protocol PRN Reason: Pain, Severe (Pain Scale 7-10) Last Admin: 02/06/24 21:11 Dose: 0.5 mg Documented By: JOSE JUAN Cefepime HCl 0.5 gm/ Sodium (Chloride) 50 mls @ 100 mls/hr IV Q24H [facility] Last Infusion: 02/07/24 10:25 Dose: Infused Documented By: NYLA Vancomycin HCl 500 mg/ Sodium (Chloride) 110 mls @ 110 mls/hr IV MoWeFr@1900 [facility] Dextrose (D10) 250 mls @ 750 mls/hr IV Q15M PRN; Protocol PRN Reason: per Hypoglycemia Standing Ord. Insulin Glargine (Insulin Glargine,Hum.Rec.Anlog 100 Unit/Ml 10 Ml Vial) 16 unit SUBCUT BEDTIME [facility] Last Admin: 02/04/24 21:15 Dose: 16 unit Documented By: HIRAL Insulin Human Lispro (Insulin Lispro 100 Unit/Ml 3 Ml Vial) 0 unit SUBCUT QIDACHS [facility]; Protocol Last Admin: 02/07/24 11:44 Dose: Not Given Documented By: NYLA Non-Admin Reason: No Insulin Coverage Labetalol HCl (Labetalol Hcl 100 Mg/20 Ml Vial) 5 mg IVPUSH Q4H PRN PRN Reason: SBP >180 Last Admin: 02/05/24 07:51 Dose: 5 mg Documented By: GARCIA Losartan Potassium (Losartan Potassium 50 Mg Tablet) 50 mg PO DAILY [facility]; Protocol Last Admin: 02/07/24 08:10 Dose: 50 mg Documented By: NYLA Magnesium Hydroxide (Milk Of Magnesia 30 Ml Oral.Susp) 30 ml PO DAILY PRN PRN Reason: Constipation Melatonin (Melatonin 3 Mg Tablet) 6 mg PO BEDTIME PRN PRN Reason: Insomnia Last Admin: 02/04/24 19:48 Dose: 6 mg Documented By: HIRAL Omeprazole (Omeprazole 20 Mg Capsule.Dr) 20 mg PO DAILY@0630 [facility] Last Admin: 02/07/24 06:15 Dose: 20 mg Documented By: LAFLAMRichie Ondansetron HCl (Ondansetron Hcl 4 Mg/2 Ml Vial) 4 mg IVPUSH Q8H PRN PRN Reason: Nausea and Vomiting Last Admin: 02/06/24 11:30 Dose: 4 mg Documented By: RIOSCEL Oxycodone HCl (Oxycodone Hcl Immed Release 5 Mg Tablet) 5 mg PO Q4H PRN PRN Reason: Pain, Severe (Pain Scale 7-10) Last Admin: 02/06/24 16:41 Dose: 5 mg Documented By: RODRI Pharmacy Consult (Consult Rx Vancomycin Dosing) 1 each MISCELLANE DAILY PRN PRN Reason: Consult order Pregabalin (Pregabalin 75 Mg Capsule) 75 mg PO DAILY [facility] Last Admin: 02/07/24 08:09 Dose: 75 mg Documented By: NYLA Senna/Docusate Sodium (Sennosides/Docusate Sodium Tablet) 1 tab PO DAILY PRN PRN Reason: Constipation Sevelamer Carbonate (Sevelamer Carbonate Tablet 800 Mg Tablet) 800 mg PO TIDWM [facility] Last Admin: 02/07/24 08:10 Dose: 800 mg Documented By: NYLA Sodium Chloride (0.9 % Sodium Chloride Flush 3 Ml Syringe) 3 ml IVFLUSH QSHIFT [facility] Last Admin: 02/07/24 08:09 Dose: 3 ml Documented By: NYLA Labs 02/02/24 12:57 02/05/24 06:38 Labs: Laboratory Results - last 24 hr 02/06/24 02/06/24 02/07/24 15:32 20:35 07:21 POC Glucose 154 H 100 120 H 02/07/24 10:51 POC Glucose 129 H Assessment and Plan (1) Dry gangrene: Status: Acute Assessment and Plan: 68-year-old Faroese-speaking male with a PMH significant for?ESRD on HD M/W/F last dialyzed earlier today, insulin-dependent type 2 diabetes, peripheral vascular disease, HFrEF (EF35%), HTN, HLD, chronically on 2L home O2, GERD, and ROBERT on CPAP who presents to the ED with?worsening right great and 3rd toe infection. Pt will be admitted to the hospital for treatment and further evaluation of right foot cellulitis that failed outpatient therapy with question of osteomyelitis as well as hypotensive urgency. Right foot cellulitis vs dry gangrene -Secondary to great and 3rd toe dry gangrene in the setting of peripheral vascular disease(01/26/24 went home outpatient therapy on doxycycline x7 days). Right foot x-ray showed questionable erosion at 3rd distal phalanx, CRP 7.61, ESR 34 No sepsis. Discussed with ID and vascular-patient will need outpatient management for foot dry gangrene, defer antibiotics. Htn uncontrolled moniter bp closely continue carvedilol, losartan adjusted to 50 mg, and doxazosin ESRD on HD M/W/ Continue furosemide, doxazosin Follow BMP Nephrology consult to establish HD while in the hospital Insulin-dependent type 2 diabetes: Sliding-scale insulin, Lantus Diabetic diet HLD/PAD Continue aspirin, statin Gout Continue allopurinol GERD PPI Full Code DVT Prophylaxis: Heparin ongoing hospitalization need for treatment of?right foot cellulitis that failed outpatient therapy concerning for possible clelulitis vs dry gangrene-patient id outpatient management with vascular surgery for dry gangrene. Patient was offered for discharge but patient declined and appeal to discharge. Quality Stroke Does the patient have a stroke diagnosis?: No VTE Prior VTE?: No VTE Risk Level:: Medical - moderate - high VTE Device Contraindication: Treatment Not Indicated VTE Drug Contraindication: N/A - Med Ordered
[2024-02-07] MEDS: oxyCODONE HCl Immed Release 5 MG TABLET PO (13:02)
[2024-02-07] MEDS: Albuterol/Iprat 2.5/0.5MG 3 ML AMPUL.NEB INHALE (15:08)
--- NOTE | 2024-02-07 16:27 | MHC.CM.PN ---
Pt has been medically cleared, appeal was denied, pt to go home with VNA, reaching out to [facility] to determine if they are previous provider
--- NOTE | 2024-02-07 16:39 | PC.NURSE ---
At 1630 pt walked out of room with family stating that he is going to go to [place]. He has refused to wait for the MD to give the AMA education. IV removed; MD notified; nurse beater room supervisor notified.
--- NOTE | 2024-02-07 16:41 | P.DS_ITS ---
DS: Providers Provider Date of Service: 02/07/24 Date of admission: 02/02/24 19:36 Date of discharge: 02/07/24 Primary care physician: Shayla Augustine NP Consults: 02/02/24 19:55 Consult to Nephrology Routine Consulting Provider: [facility] Reason for consultation: ESRD on HD M/W/F 02/02/24 21:44 Consult to Vascular Surgery Routine Consulting Provider: [facility] V[facility] Services Reason for consultation: Worsening dry gangrene w/cellulitis right 1st and 3rd toes 02/03/24 06:21 Consult to Wound Care Routine Reason for consultation: Cellulitis, wound x 1 month to right great toe and 3rd toe 02/05/24 12:24 Consult to Infectious Diseases Routine Consulting Provider: [facility] Infectious Disease [facility] Reason for consultation: osteo vs gangrene Has provider been notified: No Attending physician on discharge: Mya Reid Discharging clinician: yMa Reid DS: Diagnosis Discharge Diagnosis (1) Dry gangrene: Status: Acute DS: Summary Hospital Course Hospital Course: HPI; 68-year-old Citizen Of [place]-speaking male with a PMH significant for?ESRD on HD M/W/F last dialyzed earlier today, insulin-dependent type 2 diabetes, peripheral vascular disease, HFrEF (EF35%), HTN, HLD, chronically on 2L home O2, GERD, and ROBERT on CPAP who presents to the ED with?worsening right great and 3rd toe infection. Patient was recently discharged from the hospital 7 days prior on 01/25 after being admitted and treated for acute on chronic systolic and diastolic CHF which resolved with hemodialysis. Was also seen by vascular for dry gangrene secondary to peripheral vascular disease on right foot. Patient was discharged on doxycycline 1 week and recommended for outpatient follow-up for vascular studies. Patient reports that despite completing course of p.o. antibiotics earlier this morning the infection in his toe has gotten worse. Complains is foot is more painful, the redness has advanced, and he has had purulent discharge from great toe. Denies fever, chills, nausea, vomiting, abdominal pain. No difficulty breathing or shortness of breath. Denies chest pain/pressure, palpitations. No headache or acute vision changes. Patient reports he is compliant with all of his home medications. In the ED pt was persistently hypertensive as high as 216/99, vitals otherwise WNL. Labs were significant for elevated CRP of 7.61, ESR 34, and BNP 2902 (around baseline). No leukocytosis. Stable H&H. No significant electrolyte abnormalities. Creatinine 5.36, around baseline. Right foot x-ray found qu estionable erosion at the medial aspect of the 3rd distal phalanx, concerning for possible osteomyelitis. Pt was treated with oxycodone, labetalol 10 mg IV, Zosyn, and vancomycin. Pt will be admitted to the hospital for treatment and further evaluation of right foot cellulitis that failed outpatient therapy with question of osteomyelitis as well as hypotensive urgency. hospital course; 68-year-old Citizen Of [place]-speaking male with a PMH significant for?ESRD on HD M/W/F last dialyzed earlier today, insulin-dependent type 2 diabetes, peripheral vascular disease, HFrEF (EF35%), HTN, HLD, chronically on 2L home O2, GERD, and ROBERT on CPAP who presents to the ED with?worsening right great and 3rd toe infection. Pt will be admitted to the hospital for treatment and further evaluation of right foot cellulitis that failed outpatient therapy with question of osteomyelitis as well as hypertensive urgency. Right foot cellulitis vs dry gangrene -Secondary to great and 3rd toe dry gangrene in the setting of peripheral vascular disease(01/26/24 went home outpatient therapy on doxycycline x7 days). Right foot x-ray showed questionable erosion at 3rd distal phalanx, CRP 7.61, ESR 34 No sepsis.Discussed vascular-patient will need outpatient management for foot dry gangrene. also d/w iD-The toes lesions will not likely respond to intermediate antibioticsWould stop antibiotics as not helping and follow Vascular outpatient if not candidate for amputation now. vascular also d/w with patient multiple time and recomeded to follow up with them on 02/12 for further management and treatment options(please see event note from vascular 02/06/24) . Hospitalist service also talked to him multiple times about above. he appealed discharge yesterday and decided to leave with family today, did not wait for physician to talk to him. eloped with family. as per staff -his [place] might take [place] to [place]. Htn uncontrolled;continue carvedilol, losartan 50 mg, and doxazosin. assessment and plan coordiantion time spent 40 min. Time Attestation Discharge Coordination Time (in mins): 40 min Quality: Safe Use of Opioids Does Pt have an Active Cancer Diagnosis on the Problem List?: No Quality: Stroke Does the patient have a stroke diagnosis?: No Physical Exam Vital Signs: Vital Signs: Last Vital Signs Temp 98.2 F 02/07/24 16:00 Pulse 72 02/07/24 16:00 Resp 18 02/07/24 16:00 BP 186/82 H 02/07/24 16:00 Pulse Ox 95 02/07/24 16:00 O2 Del Method Oxymask 02/07/24 16:00 O2 Flow Rate 2 02/07/24 16:00 BMI result Body Mass Index 30.2 patient eloped. DS: Data Data Completed and Pending Completed studies during hospitalization [Text1]: Procedures Drainage of Right Pleural Cavity with Drainage Device, Percutaneous Approach (11/28/23) Drainage of Right Pleural Cavity, Percutaneous Approach (04/10/23) Introduction of Other Therapeutic Substance into Pleural Cavity, Percutaneous Approach (09/30/23) Introduction of Other Thrombolytic into Pleural Cavity, Percutaneous Approach (09/30/23) Performance of Urinary Filtration, Intermittent, Less than 6 Hours Per Day (11/28/23) Labs on day of discharge: Laboratory Results - last 24 hr 02/06/24 02/07/24 02/07/24 20:35 07:21 10:51 POC Glucose 100 120 H 129 H Preliminary micro results at discharge 02/02/24 16:33 Blood Culture - Preliminary Blood - Venous No growth after 48 hours. Discharge Plan Discharge Anticipated Discharge Date/Time: 02/06/24 12:51 Patient Disposition: Home, Self-Care Discharge Diagnosis: dry gangrene Referrals: Shayla Augustine NP [Primary Care Provider] - 1 Week Discharge Medications: Continued (DME) PleurX catheter drainage kits 1000cc kits See Rx Instructions .Route .MEDSUPPLY Qty: 10 6RF Rx Instructions: As directed atorvastatin 40 mg tablet 40 mg PO DAILY ipratropium-albuterol 0.5 mg-3 mg(2.5 mg base)/3 mL solution for nebulization 3 ml INHALATION QID PRN (Reason: Wheezing) sennosides-docusate sodium [Senna-Time S] 8.6-50 mg tablet 1 tab PO DAILY PRN (Reason: Constipation) allopurinol 100 mg tablet 100 mg PO MOWEFR@1600 Rx Instructions: GIVE AFTER DIALYSIS furosemide 80 mg tablet 80 mg PO DAILY omeprazole 20 mg capsule,delayed release(DR/EC) 20 mg PO DAILY@0630 doxazosin 4 mg tablet 4 mg PO BEDTIME albuterol sulfate 90 mcg/actuation HFA aerosol inhaler 2 puff INHALATION Q4H PRN (Reason: Shortness Of Breath) carvedilol 6.25 mg Tablet 6.25 mg PO BID Qty: 60 0RF Protocol: Hold for SBP/HR < HOLD for SBP < : 90 HOLD for HR < : 60 losartan 25 mg Tablet 25 mg PO DAILY Qty: 90 0RF Protocol: Hold for SBP< HOLD for SBP < : 90 fluticasone propionate 50 mcg/actuation [place],Suspension 1 spray intranasal BID Qty: 16 0RF Velphoro 500 mg tablet,chewable 500 mg PO TID Trelegy Ellipta 200-62.5-25 mcg blister with device 1 ea INHALATION DAILY hydralazine 25 mg tablet 25 mg PO TID doxycycline hyclate 100 mg tablet 100 mg PO BID Qty: 14 0RF Rx Instructions: End date 02/02/24 oxycodone 5 mg Tablet 5 mg PO Q4H PRN (Reason: Pain, Moderate(Pain Scale 4-6)) Qty: 20 0RF Rx Instructions: Partial Fill upon patient request. insulin lispro 100 unit/mL insulin pen 1 sliding scale dose subcut TIDAC insulin glargine [Lantus Solostar U-100 Insulin] 100 unit/mL (3 mL) insulin pen 22 unit subcut BEDTIME aspirin 81 mg tablet,delayed release (DR/EC) 81 mg PO DAILY pregabalin 75 mg capsule 75 mg PO DAILY Discharge Orders: Discharge Order (Routine); Ordered 02/06/24 Ordered By: Mya Reid Diet: Advance to usual diet Activity on Discharge: As tolerated Stand Alone Forms: Patient Portal Discharge page Print Language: Citizen Of [place] Care Plan Goals: patient eloped. Health Concerns: patient eloped. Plan of Treatment: patient eloped. Assessment: patient eloped. Discharge Date/Time: 02/07/24 16:30
== END 2024-02-07 16:30 | disposition home or self-care (01) | DRG 299 ==
LOC: HO.ED 19:33 → HO.EDOVER 19:57 → HO.IMC 20:03
PROVIDERS: Internal Medicine; Physician Assistant Medical; Admitting Provider Student in an Organized Health Care Education/Training Program; Emergency Provider Emergency Medicine; PCP Nurse Practitioner; Visit Provider Internal Medicine
DX: E11.52 Type 2 diabetes mellitus with diabetic peripheral angiopathy with gangrene (principal); N18.6 End stage renal disease; I13.2 Hypertensive heart and chronic kidney disease with heart failure and with stage 5 chronic kidney disease, or end stage renal disease; I70.261 Atherosclerosis of native arteries of extremities with gangrene, right leg; I50.42 Chronic combined systolic (congestive) and diastolic (congestive) heart failure; L03.115 Cellulitis of right lower limb; E11.22 Type 2 diabetes mellitus with diabetic chronic kidney disease; B95.62 Methicillin resistant Staphylococcus aureus infection as the cause of diseases classified elsewhere; G47.33 Obstructive sleep apnea (adult) (pediatric); I16.0 Hypertensive urgency; B95.2 Enterococcus as the cause of diseases classified elsewhere; E78.5 Hyperlipidemia, unspecified; L97.519 Non-pressure chronic ulcer of other part of right foot with unspecified severity; K21.9 Gastro-esophageal reflux disease without esophagitis; M10.9 Gout, unspecified; Z99.2 Dependence on renal dialysis; Z76.82 Awaiting organ transplant status; Z99.81 Dependence on supplemental oxygen; Z86.718 Personal history of other venous thrombosis and embolism; Z91.158 Patient's noncompliance with renal dialysis for other reason; Z87.891 Personal history of nicotine dependence; Z79.4 Long term (current) use of insulin; Z79.01 Long term (current) use of anticoagulants; Z79.82 Long term (current) use of aspirin; Z79.899 Other long term (current) drug therapy
CPT/HCPCS: 36415; 73630; 80048; 80053; 80202; 82947; 83605; 83735; 83880; 85025; 85652; 86140; 87040; 87070; 87077; 87186; 87205; 90999; 94640; 99285; J0692; J1171; J1644; J1920; J2405; J2543; J3371

== ENCOUNTER → 2024-02-02 19:36 | Outpatient (BNV) | payer MEDICARE, SELFPAY | PROVIDERS: Admitting Provider Student in an Organized Health Care Education/Training Program; Emergency Provider Emergency Medicine; PCP Nurse Practitioner; Visit Provider Internal Medicine | DX: N18.6 End stage renal disease (principal); I96 Gangrene, not elsewhere classified | CPT/HCPCS: 99222 ==

== ENCOUNTER → 2024-02-02 19:36 | Outpatient (BNV) | payer MEDICARE, SELFPAY | PROVIDERS: Admitting Provider Student in an Organized Health Care Education/Training Program; Emergency Provider Emergency Medicine; PCP Nurse Practitioner; Visit Provider Physician Assistant Surgical | DX: I96 Gangrene, not elsewhere classified (principal) | CPT/HCPCS: 99222; 99232; 99499 ==

== ENCOUNTER → 2024-02-02 19:36 | Outpatient (BNV) | payer MEDICARE, SELFPAY | PROVIDERS: Admitting Provider Student in an Organized Health Care Education/Training Program; Emergency Provider Emergency Medicine; PCP Nurse Practitioner; Visit Provider Internal Medicine | DX: I96 Gangrene, not elsewhere classified (principal) | CPT/HCPCS: 99231; 99232; 99239 ==

== ENCOUNTER 2024-02-13 08:40 | Outpatient (AMB) | payer MEDICARE, SELFPAY ==
--- NOTE | 2024-02-13 09:02 | A.OFFVIS_ITS ---
Intake Visit Reasons: Hospital f/u nonhealing ulcers-right 1st & 3rd toe Intake Note: Pt states that nurse come in am to clean toes. Pt cleans and dresses toes BID. Customer Care Team Coach Required: Yes Customer Care Team Coach Services: Customer Care Team Coach Present Customer Care Team Coach Name: [employer] Bradford [phone] Accompanied by: Son Allergies No Known Allergies Allergy (Verified 02/02/24 11:29) HPI HPI Hospital f/u nonhealing ulcers-right 1st & 3rd toe: Details: Beau, a pleasant 68 yo [place] speaking only male patient, is presenting today with his family member for a follow to most recent hospitalization for ? osteo/pain of right 1/3 toes. We utilized the plastics sheet finishing press operator service. He continues with pain in his toes, mostly on the bottom of the right 1 toe, on the plantar aspect. He is having nursing coming in and changing dressings daily, he is changing them as well. He is on HD on MWF. [facility] Medical History (Updated 02/13/24 @ 09:35 by Amarilis Mcdaniels PA-C) Dry gangrene Chronic combined systolic and diastolic CHF (congestive heart failure) ESRD on dialysis Acute on chronic systolic and diastolic heart failure, NYHA class 3 HFrEF (heart failure with reduced ejection fraction) ESRD (end stage renal disease) Anemia ESRD (end stage renal disease) Chronic pericardial effusion Arthritis Asthma Restless leg syndrome Occlusive thrombus Pulmonary edema ROBERT (obstructive sleep apnea) Type 2 diabetes mellitus Hyperlipidemia Hypertension A-V fistula Falling Surgical History Recurrent pleural effusion Pleural effusion on right (07/13/23) History of surgery H/O colonoscopy Family History Father No problems noted. Mother No problems noted. Social History Household Members: Children Household Members Other:: son Housing: Apartment Do you presently have visiting nurse or other home services: Yes (daily for BP and POC check) Alcohol intake: never Comment: counts correct Patient Tobacco Use Status: Former Tobacco user Tobacco use type: Cigarette Second Hand Smoke Exposure: No Advance Directives Date on File: 10/04/23 service: No Review of Systems Const Reports as per HPI and Denies weakness ENT Reports Normal hearing present and Denies dizziness Card Reports as per HPI, Denies chest pain, Denies chest pain at rest, Denies chest pain with activity, Denies dyspnea and Denies dyspnea on exertion Resp Reports as per HPI, Denies cough, Denies dyspnea and Denies dyspnea on exertion GI Reports as per HPI, Denies abdominal pain, Denies nausea and Denies vomiting Musc Denies numbness Skin/Breast Reports as per HPI, Denies erythema and Denies wounds Neuro Reports Normal hearing present, Denies dizziness, Denies numbness, Denies Sensory deficit (Neuro) and Denies weakness Psych Reports no additional complaints Endo Reports no additional complaints Physical Exam Const General: healthy appearing and no acute distress Orientation/consciousness: patient oriented x3 HEENT Head: Yes normal to inspection Ears: hearing grossly normal bilaterally Mouth: Normal oral and palatal mucosa present Resp Effort & Inspection: normal respiratory effort and able to speak in complete sentences Auscultation: clear to auscultation bilaterally Cardio Jugular venous distension: no JVD Rate: regular rate Rhythm: regular rhythm Heart sounds: S1 normal heart sound present and S2 normal heart sound present Bruits: no abdominal aortic bruits, no carotid bruits, no femoral bruits and no renal bruits Peripheral pulses: Peripheral pulses 2+ throughout GI Inspection: Yes normal to inspection Palpation (GI): No Abdominal aortic bruit present Skin General skin exam: no rashes or lesions noted Wounds: no wounds Hair: normal Neuro General: patient oriented x3 Cranial nerves: Yes Normal hearing present Cognition (Neuro): normal cognition Gait exam (Neuro): Normal gait present Motor exam (neuro): 5/5 motor strength present throughout Sensory Exam: No Sensory deficit (Neuro) Extrem Other: R1/3 toes: dry gangrene. Palpable DP pulse. General: Yes normal to inspection, Yes full ROM, Yes capillary refill normal and Yes normal gait Assessment & Plan Assessment & Plan (1) Peripheral arterial disease: Code(s): I73.9 - Peripheral vascular disease, unspecified Category: Medical Plan: Beau is presenting today due to dry gangrene of his R1/3 toes. This has been going on >1m now and has had several hospitalizations for IV abx and diagnoses of osteo. The pt will likely need a TMA; however, he will need an angio first. Due to his MWF HD schedule, we will need to reach out to him when we are available to schedule the angio. I discussed with him the angio procedure and the importance of why we need to perform that first, prior to an amputation. We discussed the possible complications from the angio and that there may be a stent or balloon placed, if needed, during the angio. The pt's family asked about pain medications; I discussed that we do not prescribe them but will refer him to pain mgte. The pt is in agreement to the angio and I discussed that we will reach out to him when we have a date that we can schedule it. I discussed they can reach out to our office at any time if there are any questions or concerns. Orders: Referrals Pain Management Referral I73.9 - Peripheral vascular disease, unspecified, I96 - Gangrene, not elsewhere classified Coding Level of Care Code Est Pt Level 4 (02891) Diagnoses Peripheral arterial disease I73.9
--- OUTSIDE RECORDS SUMMARY | 2024-02-14 19:01 | XMS_ITS | Encounter Summary ---
Author Organization [facility] Address [address] [place] [address] Encounter Details Date Type Department Care Team Description 2024-02-05 Telephone [facility] [address] [place] [address] Karmen Verdugo Medication Reconciliation was successfully completed by the [facility]. ASSESSMENT No Information TREATMENT PLAN No Information
== END 2024-02-13 09:31 | disposition home or self-care (01) ==
PROVIDERS: PCP Nurse Practitioner; Visit Provider Physician Assistant Surgical
DX: I73.9 Peripheral vascular disease, unspecified (principal)
CPT/HCPCS: 99214

== ENCOUNTER → 2024-02-13 08:40 | Outpatient (BNVA) | payer MEDICARE, SELFPAY | PROVIDERS: PCP Nurse Practitioner; Visit Provider Physician Assistant Surgical | DX: I73.9 Peripheral vascular disease, unspecified (principal) | CPT/HCPCS: 99212 ==

== ENCOUNTER 2024-03-05 05:49 | Day surgery (SDC) | payer MEDICARE, MEDICAID, SELFPAY ==
[2024-03-05] VITALS (16 sets, daily range): BP systolic 116–193; BP diastolic 58–88; PULSE 77–87; RESP 13–23; TEMP 36.4–36.9; O2SAT 92–98; BMI 28.6
--- OUTSIDE RECORDS SUMMARY | 2024-03-05 05:51 | XMS_ITS | Encounter Summary ---
Author Organization [facility] Address [facility] [place] [address] Encounter Details Date Type Department Care Team Description 2024-03-01 Telephone [facility] [place] [address] Rahel Verdugo Medication Reconciliation was successfully completed by the [facility]. ASSESSMENT No Information TREATMENT PLAN No Information
--- OUTSIDE RECORDS SUMMARY | 2024-03-05 05:51 | XMS_ITS | Encounter Summary ---
Author Organization [facility] Address [address] [place] [address] Encounter Details Date Type Department Care Team Description 2024-02-12 Telephone [facility] [address] [place] [address] Karmen Verdugo Medication Reconciliation was successfully completed by the [facility]. ASSESSMENT No Information TREATMENT PLAN No Information
[2024-03-05 06:23] LABS: Glucose, Whole Blood 166 mg/dL (60-115)
[2024-03-05 06:35] LABS: MANUAL DIFF FLAG NO
[2024-03-05 06:37] LABS: Basophils Percent Auto 0.3 % (0-2); Eosinophils Absolute Auto 0.2 X10*3/uL (0.0-0.4); Eosinophils Percent Auto 1.5 % (0-4); Hematocrit 31.8 % (42.0-52.0); Hemoglobin 9.9 g/dl (14.0-18.0); Imm Gran Abs Auto 0.07 X10*3/uL (0.00-0.03); Imm Gran Pct Auto 0.5 % (0.0-0.4); Lymphocytes Absolute Auto 0.9 X10*3/uL (1.2-4.9); Lymphocytes Percent Auto 6.6 % (20-40); Mean Corpuscular HGB Conc 31.1 g/dl (31.0-36.0); Mean Corpuscular Hemoglobin 23.4 pg (27.0-33.0); Mean Corpuscular Volume 75.2 fL (80.0-98.0); Mean Platelet Volume 10.3 fL (9.4-12.4); Monocytes Absolute Auto 1.2 X10*3/uL (0.1-1.2); Monocytes Percent Auto 9.1 % (2-11); Neutrophils Absolute Auto 10.9 x10*3/uL (2.0-8.3); Platelet Count 272 X10*3/uL (160-400); Red Blood Count 4.23 X10*6/uL (4.60-5.80); Red Cell Distribution Width 16.7 % (11.0-16.0); White Blood Count 13.3 X10*3/uL (4.8-10.8)
[2024-03-05 06:51] LABS: Blood Urea Nitrogen 51 mg/dL (9-16); Estimated Glomerular Filt Rate 7
[2024-03-05] MEDS: 0.9 % Sodium Chloride 1,000 ML 100 ML IVCONT (08:00)
--- NOTE | 2024-03-05 09:25 | PC.NURSE ---
Dr. Cannon aware of all preop lab results including critical creatinine of 7.79. No new orders at this time.
[2024-03-05] MEDS: Midazolam HCl/PF 2 MG/2 ML VIAL 0.5 MG IVPUSH (10:13)
[2024-03-05] MEDS: fentaNYL citrate/PF 100 MCG/2 ML VIAL 25 MCG IVPUSH (10:13)
[2024-03-05] MEDS: hydrALAZINE HCl 20 MG/ML VIAL 10 MG IVPUSH (10:26)
--- NOTE | 2024-03-05 10:40 | W.PM.OPN ---
Operative Note Operative Note Date of Service: 03/05/24 Narrative: Angiogram report from [facility] Preoperative diagnosis: Atherosclerosis of right lower extremity with nonhealing ulcer Postoperative diagnosis: Same Procedure: 1. Ultrasound-guided left common femoral access 2. Aortogram with right lower extremity runoff Surgeon:Baltazar Cannon M.D., FACS, RPVI Dsp Engineer:None Anesthesia: Local with moderate conscious sedation. Total intraservice moderate sedation time was 19 minutes. I monitored the patient's level of consciousness and physiologic status continuously throughout the procedure. Specimens:none Drains:none Estimated blood loss: Less than 10 ml Implant: None Indications: 68-year-old gentleman who is dialysis dependent has a nonhealing right lower extremity ulcer with infection. He upon noninvasive workup had concerns of tibial vessel disease. He now presents for endovascular intervention The patient has signed the informed consent after reviewing risks, complications, benefits, and alternatives previously discussed with the patient. The patient was given the opportunity to ask any additional questions or voice any concerns. All questions were answered to the patient's satisfaction. Procedure in detail: Patient was brought to the angiography suite prior to which a time-out was called for patient identification and site verification. Bilateral groins were prepped and draped in the standard surgical fashion. Under ultrasound guidance left common femoral was punctured with micro puncture needle and wire. Subsequently a precision 5 [place] sheath was then placed. Bentson wire was advanced to the level of the aorta. 5 [place] Flush catheter was brought up and parked at the level of the renal arteries. Aortogram was then undertaken. Catheter was brought down to the level of the iliac bifurcation. Iliacs were subsequently imaged. Catheter was then brought in up and over to the right side SFA. Runoff study was then undertaken. No intervention was indicated. At this time catheter and wire were removed. Through the sheath we instilled some contrast to assure appropriate puncture site. A CELT closure device was used. Patient tolerated the procedure well. Returned to recovery with stable vitals. Interpretation of films: 1. Ultrasound demonstrates appropriate femoral access site. Vessel was patent with minimal stenosis. Needle entry was visualized. Image of ultrasound was saved. 2. Aortogram demonstrates appropriate caliber aorta. Minimal disease. Appropriate take-off of the renals. 3. Iliac images demonstrate no significant disease acute angle with some tortuosity 4. Right Leg Common femoral artery: Profundus Femoris: No significant disease Superficial femoral artery: No significant disease Popliteal artery (p1,p2,p3): No significant disease Anterior tibial artery: No significant disease with runoff all the way to the foot Peroneal artery: Present but diminutive Posterior tibial artery: Mild disease at mid posterior tibial Dorsalis pedis/plantar arch: Present and nearly complete Conclusion: 1. Successful diagnostic angiogram. Enough runoff to supply foot and heel ulcer 2. Anticoagulation status: . No change This note is constructed using voice recognition software. While every effort has been made to ensure accuracy, residential mental health worker errors may have been included. Thank you for allowing me to participate in the care of your patient. Yours sincerely, Baltazar Cannon MD, FACS, R.P.V.I.
== END 2024-03-05 13:43 | disposition home or self-care (01) ==
LOC: HO.SSS 05:49
PROVIDERS: Physician Assistant Surgical; PCP Nurse Practitioner; Visit Provider Surgery Vascular Surgery
DX: E11.51 Type 2 diabetes mellitus with diabetic peripheral angiopathy without gangrene (principal); I70.248 Atherosclerosis of native arteries of left leg with ulceration of other part of lower leg; E11.22 Type 2 diabetes mellitus with diabetic chronic kidney disease; I13.2 Hypertensive heart and chronic kidney disease with heart failure and with stage 5 chronic kidney disease, or end stage renal disease; I50.42 Chronic combined systolic (congestive) and diastolic (congestive) heart failure; N18.6 End stage renal disease; Z87.891 Personal history of nicotine dependence; M79.674 Pain in right toe(s); Z99.2 Dependence on renal dialysis; Z79.4 Long term (current) use of insulin
CPT/HCPCS: 36247; 36415; 75630; 76937; 82565; 82947; 84520; 85025; 99152; C1769; C1887; C1894; J0360; J1644; J2250; J2310; J3010; Q9967

== ENCOUNTER → 2024-03-05 05:49 | Outpatient (BNV) | payer MEDICARE, MEDICAID, SELFPAY | PROVIDERS: PCP Nurse Practitioner; Visit Provider Surgery Vascular Surgery | DX: I70.239 Atherosclerosis of native arteries of right leg with ulceration of unspecified site (principal) | CPT/HCPCS: 36247; 75625; 75710; 76937; 99152 ==

== ENCOUNTER 2024-03-07 19:14 | Emergency (ER) | payer MEDICARE, MEDICAID, SELFPAY ==
--- NOTE | ~2024-03-07 | CT_ITS ---
CLINICAL HISTORY: AMS new seizure CT head without contrast Comparison: MR/SR - MR HEAD/BRAIN WO CON - 12/05/23 15:[address]/SR - CT HEAD/BRAIN WO IV CON - 12/02/23 11:24 EDT Findings: No intra-axial mass, midline shift, hydrocephalus, or acute hemorrhage. No significant atrophy-like change or white matter disease. Left mastoid effusion, new in comparison to prior. The orbits are within normal limits. There is no acute fracture. IMPRESSION: 1. No acute intracranial findings 2. New left mastoid effusion. This document has been electronically signed by: Chapincito Concepcion MD on 03/07/2024 22:50:13
[2024-03-07 19:23] VITALS: BP 163/88; PULSE 95; RESP 18; TEMP 37; O2SAT 98; BMI 26.6
--- NOTE | 2024-03-07 19:36 | ECG_ITS ---
Test Reason : ALTER MENTAL Blood Pressure : / mmHG Vent. Rate : 149 BPM Atrial Rate : 149 BPM P-R Int : 126 ms QRS Dur : 092 ms QT Int : 260 ms P-R-T Axes : 000 -05 121 degrees QTc Int : 409 ms Sinus tachycardia Left ventricular hypertrophy with repolarization abnormality ( [place] product , Romhilt-Chen ) Abnormal ECG When compared with ECG of 28-NOV-2023 07:05, Vent. rate has increased BY 61 BPM T wave inversion now evident in Lateral leads Referred By: Generic ED Physician Electronically Signed By:MARIE FRANCO MD
[2024-03-07 19:40] LABS: Glucose, Whole Blood 82 mg/dL (60-115)
[2024-03-07 20:32] LABS: Basophils Percent Auto 0.3 % (0-2); Hematocrit 32.7 % (42.0-52.0); Imm Gran Abs Auto 0.07 X10*3/uL (0.00-0.03); Imm Gran Pct Auto 0.6 % (0.0-0.4); MANUAL DIFF FLAG SCAN; SCAN SMEAR FLAG 1
[2024-03-07 20:34] LABS: Eosinophils Absolute Auto 0.4 X10*3/uL (0.0-0.4); Eosinophils Percent Auto 3.5 % (0-4); Hemoglobin 10.3 g/dl (14.0-18.0); Lymphocytes Absolute Auto 0.5 X10*3/uL (1.2-4.9); Lymphocytes Percent Auto 4.3 % (20-40); Mean Corpuscular HGB Conc 31.5 g/dl (31.0-36.0); Mean Corpuscular Hemoglobin 22.8 pg (27.0-33.0); Mean Corpuscular Volume 72.5 fL (80.0-98.0); Mean Platelet Volume 9.7 fL (9.4-12.4); Monocytes Percent Auto 8.2 % (2-11); Neutrophils Absolute Auto 9.7 x10*3/uL (2.0-8.3); Neutrophils Percent Auto 83.1 % (45-73); Platelet Count 227 X10*3/uL (160-400); Red Blood Count 4.51 X10*6/uL (4.60-5.80); Red Cell Distribution Width 16.9 % (11.0-16.0); White Blood Count 11.6 X10*3/uL (4.8-10.8)
[2024-03-07 20:35] LABS: PLT ABN DIST 1
[2024-03-07 20:37] LABS: INTERNATIONAL NORM RATIO 1.3 (0.9-1.1)
[2024-03-07 20:42] LABS: Ammonia 31 umol/L (13-55)
[2024-03-07 20:53] LABS: VBG Base Excess 3.9 mmol/L; VBG HCO3 28 mmol/L (22-26); VBG pCO2 44 mmHg; VBG pH 7.42 (7.32-7.43); VBG pO2 110 mmHg
[2024-03-07 20:54] LABS: Alanine Aminotransferase 21 U/L (0-40); Albumin Level 3.7 g/dL (3.5-5.0); Alkaline Phosphatase 145 U/L (39-117); Anion Gap 18 (12-20); Aspartate Amino Transferase 24 U/L (5-37); Bilirubin Total 0.5 mg/dL (0.0-1.0); Blood Urea Nitrogen 35 mg/dL (9-16); Calcium 9.2 mg/dL (8.4-10.2); Carbon Dioxide 25 mmol/L (22-29); Chloride 99 mmol/L (96-108); Creatinine Clr Calc Pharmacy 10.3; Estimated Glomerular Filt Rate 9; Glucose Random 122 mg/dL (60-115); Magnesium 1.7 mg/dL (1.6-2.6); Potassium 4.3 mmol/L (3.3-5.1); Sodium 138 mmol/L (135-145); Total Protein 8.1 g/dL (6.5-8.0)
[2024-03-07 20:55] LABS: B Type Natriuretic Peptide 2446 pg/mL (<100)
[2024-03-07 20:55] LABS: Venous Blood Gas Refer to POC result
[2024-03-07 20:56] LABS: SLIDE REVIEW VERIFIED
[2024-03-07 21:03] LABS: Troponin-I High Sensitivity 187.2 ng/L (<3.5-35.0)
--- NOTE | 2024-03-07 21:18 | ED.GENADULT ---
HPI - General Adult General Chief complaint: Altered Mental Status Stated complaint: missed dialysis , hypertension Time Seen by Provider: 03/07/24 21:15 Source: patient Mode of arrival: ambulatory Limitations: no limitations History of Present Illness ED Provider: HPI narrative: Patient's history of hypertension end-stage renal disease missed his dialysis 2 times and had full dialysis today brought by his son after dialysis as been hallucinating for last 2 days and even after dialysis he was hallucinating and staring, with jerking movement patient's blood pressure was elevated before dialysis 230/130 no focal deficits Related Data Home Medications ?Medication ?Instructions ?Recorded ?Confirmed albuterol sulfate 90 mcg/actuation 2 puff inhalation Q4H PRN 04/19/22 03/05/24 aerosol inhaler Shortness Of Breath allopurinol 100 mg tablet 100 mg PO MOWEFR@1600 04/19/22 02/02/24 atorvastatin 40 mg tablet 40 mg PO DAILY 04/19/22 02/02/24 doxazosin 4 mg tablet 4 mg PO BEDTIME 04/19/22 02/02/24 furosemide 80 mg tablet 80 mg PO DAILY 04/19/22 02/02/24 ipratropium 0.5 mg-albuterol 3 mg 3 ml inhalation QID PRN Wheezing 04/19/22 02/02/24 (2.5 mg base)/3 mL nebulization soln omeprazole 20 mg capsule,delayed 20 mg PO DAILY@0630 04/19/22 02/02/24 release sennosides 8.6 mg-docusate sodium 1 tab PO DAILY PRN Constipation 04/19/22 02/02/24 50 mg tablet (Senna-Time S) insulin glargine 100 unit/mL (3 22 unit subcut BEDTIME 04/10/23 03/05/24 mL) subcutaneous pen (Lantus Solostar U-100 Insulin) insulin lispro 100 unit/mL 1 sliding scale dose subcut TIDAC 04/10/23 03/05/24 subcutaneous pen aspirin 81 mg tablet,delayed 81 mg PO DAILY 06/20/23 02/02/24 release pregabalin 75 mg capsule 75 mg PO DAILY 06/20/23 02/02/24 fluticasone fur. 200 mcg-umeclid 1 ea inhalation DAILY 11/20/24 12/31/24 62.5 mcg-vilant 25 mcg inhalat.powder (Trelegy Ellipta) hydralazine 25 mg tablet 25 mg PO TID 01/24/24 02/02/24 sucroferric oxyhydroxide 500 mg 500 mg PO TID 01/24/24 02/02/24 chewable tablet (Velphoro) Previous Rx's ?Medication ?Instructions ?Recorded carvedilol 6.25 mg tablet 6.25 mg PO BID #60 tabs 10/03/23 losartan 25 mg tablet 25 mg PO DAILY #90 tabs 10/03/23 PleurX catheter drainage kits #10 ea 10/17/23 fluticasone propionate 50 1 spray intranasal BID #16 grams 12/07/23 mcg/actuation nasal spray,suspension doxycycline hyclate 100 mg tablet 100 mg PO BID #14 tabs 01/26/24 Allergies Allergy/AdvReac Type Severity Reaction Status Date / Time Iodinated Contrast Media Allergy Unknown Verified 03/07/24 19:30 [Contrast Dye] Review of Systems Review of Systems: Yes all other systems are reviewed and are negative [facility] Past Medical History Medical History Dry gangrene Chronic combined systolic and diastolic CHF (congestive heart failure) ESRD on dialysis Acute on chronic systolic and diastolic heart failure, NYHA class 3 HFrEF (heart failure with reduced ejection fraction) ESRD (end stage renal disease) Anemia ESRD (end stage renal disease) Chronic pericardial effusion Arthritis Asthma Restless leg syndrome Occlusive thrombus Pulmonary edema ROBERT (obstructive sleep apnea) Type 2 diabetes mellitus Hyperlipidemia Hypertension A-V fistula Falling Surgical History Recurrent pleural effusion Pleural effusion on right (07/13/23) History of surgery H/O colonoscopy Family History Family History Father No problems noted. Mother No problems noted. Social History Social History Household Members: Children Household Members Other:: son Housing: Apartment Do you presently have visiting nurse or other home services: Yes (daily for BP and POC check) Alcohol intake: never Comment: counts correct Patient Tobacco Use Status: Former Tobacco user Tobacco use type: Cigarette Second Hand Smoke Exposure: No Advance Directives Date on File: 10/04/23 service: No Physical Exam ED Vital Signs: Vital Signs - 24 hr 03/07/24 19:23 Temperature 98.6 F Pulse Rate 95 Respiratory Rate 18 Blood Pressure 163/88 H Pulse Oximetry 98 BMI result Body Mass Index 26.6 Appearance: Alert. Oriented X3. No acute distress. Eyes: PERRLA, No Nystagmus ENT: Pharynx normal. Oral Mucosa moist Neck: Normal inspection. Neck supple. CVS: Normal heart rate and rhythm. Pulses normal. Respiratory: No respiratory distress. Equal air entry bilateral, no wheezing/rales/rhonchi Abdomen: Soft and nontender. Bowel sounds are present, no mass palpable, no CVA tenderness Skin: Skin warm and dry. Normal skin color. Normal skin turgor. Extremities: No lower extremity edema. No calf tenderness Neuro: Oriented X 3. No motor deficit. No sensory deficit.No cerebellar signs , cranial nerves II-XII intact Medical Decision Making Medical Decision Making [facility] Narrative: Patient's history of end-stage renal disease missing his dialysis hallucinations likely the cause from metabolic encephalopathy patient received dialysis and will be seen on the dialysis tomorrow CT scan of the head negative for acute labs are stable at this time patient advised to follow with PCP/neurologist if symptoms continues patient's heart rate improved during stay in the ER to 90 beats per minute Differential Diagnosis Differential Diagnoses: The differential diagnosis associated with the presentation includes Lab Data [facility] Lab Attestation statement: I reviewed the patient's lab results. 03/07/24 20:24 03/07/24 20:24 Labs: Lab Results 03/07/24 03/07/24 03/07/24 Range/Units 19:32 20:24 20:30 WBC 11.6 H (4.8-10.8) X10*3/uL RBC 4.51 L (4.60-5.80) X10*6/uL Hgb 10.3 L (14.0-18.0) g/dl Hct 32.7 L (42.0-52.0) % MCV 72.5 L (80.0-98.0) fL MCH 22.8 L (27.0-33.0) pg MCHC 31.5 (31.0-36.0) g/dl RDW 16.9 H (11.0-16.0) % Plt Count 227 (160-400) X10*3/uL MPV 9.7 (9.4-12.4) fL Immature Gran % (Auto) 0.6 H (0.0-0.4) % Neut % (Auto) 83.1 H (45-73) % Lymph % (Auto) 4.3 L (20-40) % Sullivan % (Auto) 8.2 (2-11) % Eos % (Auto) 3.5 (0-4) % Baso % (Auto) 0.3 (0-2) % Lymph # (Auto) 0.5 L (1.2-4.9) X10*3/uL Sullivan # (Auto) 1.0 (0.1-1.2) X10*3/uL Eos # (Auto) 0.4 (0.0-0.4) X10*3/uL Baso # (Auto) 0.0 (0.0-0.2) X10*3/uL Abs Immat Gran (auto) 0.07 H (0.00-0.03) X10*3/uL Absolute Neuts (auto) 9.7 H (2.0-8.3) x10*3/uL Absolute Nucleated RBC 0.000 (0.0-0.012) X10*3/uL Nucleated RBC % (auto) 0.0 (0.0-0.2) /100WBC Smear Tech's Comments VERIFIED PT 15.0 H (10.9-12.4) SEC INR 1.3 H (0.9-1.1) VBG pH 7.42 (7.32-7.43) VBG pCO2 44 mmHg VBG pO2 110 mmHg VBG HCO3 28 H (22-26) mmol/L VBG O2 Saturation 99.0 % VBG Base Excess 3.9 mmol/L Sodium 138 (135-145) mmol/L Potassium 4.3 (3.3-5.1) mmol/L Chloride 99 (96-108) mmol/L Carbon Dioxide 25 (22-29) mmol/L Anion Gap 18 (12-20) BUN 35 H (9-16) mg/dL Creatinine 6.22 H* (0.5-1.4) mg/dL Estim Creat Clear Calc 10.3 Estimated GFR 9 POC Glucose 82 (60-115) mg/dL Random Glucose 122 H (60-115) mg/dL Calcium 9.2 D (8.4-10.2) mg/dL Magnesium 1.7 (1.6-2.6) mg/dL Total Bilirubin 0.5 (0.0-1.0) mg/dL AST 24 (5-37) U/L ALT 21 (0-40) U/L Alkaline Phosphatase 145 H (39-117) U/L Ammonia 31 (13-55) umol/L Troponin I High Sens 187.2 H* D (<3.5-35.0) ng/L B-Natriuretic Peptide 2446 H (<100) pg/mL Total Protein 8.1 H (6.5-8.0) g/dL Albumin 3.7 (3.5-5.0) g/dL Independent Interpretation I performed an independent interpretation of an: EKG and CT Scan Interpretation: NAD Sinus tachycardia 149 heartbeats per minute LVH no acute ST-T changes no acute ischemia Radiology Impression Discussion of test interpretation with radiology: I have reviewed the radiologist's reading. Discharge Plan Discharge Clinical Impression: Hallucinations Patient Disposition: Home, Self-Care Instructions: Nonpsychiatric Hallucinations (ED) Additional Instructions: Cause of your hallucinations not clear likely metabolic from renal failure and missing the dialysis However dialysis tomorrow as scheduled Follow up with PCP/neurologist if symptoms continues for further management CT scan of the head is negative for acute Prescriptions: No Action (DME) PleurX catheter drainage kits 1000cc kits See Rx Instructions .Route .MEDSUPPLY Qty: 10 6RF Rx Instructions: As directed atorvastatin 40 mg tablet 40 mg PO DAILY ipratropium-albuterol 0.5 mg-3 mg(2.5 mg base)/3 mL solution for nebulization 3 ml INHALATION QID PRN (Reason: Wheezing) sennosides-docusate sodium [Senna-Time S] 8.6-50 mg tablet 1 tab PO DAILY PRN (Reason: Constipation) allopurinol 100 mg tablet 100 mg PO MOWEFR@1600 Rx Instructions: GIVE AFTER DIALYSIS furosemide 80 mg tablet 80 mg PO DAILY omeprazole 20 mg capsule,delayed release(DR/EC) 20 mg PO DAILY@0630 doxazosin 4 mg tablet 4 mg PO BEDTIME albuterol sulfate 90 mcg/actuation HFA aerosol inhaler 2 puff INHALATION Q4H PRN (Reason: Shortness Of Breath) carvedilol 6.25 mg Tablet 6.25 mg PO BID Qty: 60 0RF Protocol: Hold for SBP/HR < HOLD for SBP < : 90 HOLD for HR < : 60 losartan 25 mg Tablet 25 mg PO DAILY Qty: 90 0RF Protocol: Hold for SBP< HOLD for SBP < : 90 fluticasone propionate 50 mcg/actuation [place],Suspension 1 spray intranasal BID Qty: 16 0RF Velphoro 500 mg tablet,chewable 500 mg PO TID Trelegy Ellipta 200-62.5-25 mcg blister with device 1 ea INHALATION DAILY hydralazine 25 mg tablet 25 mg PO TID doxycycline hyclate 100 mg tablet 100 mg PO BID Qty: 14 0RF Rx Instructions: End date 02/02/24 insulin lispro 100 unit/mL insulin pen 1 sliding scale dose subcut TIDAC insulin glargine [Lantus Solostar U-100 Insulin] 100 unit/mL (3 mL) insulin pen 22 unit subcut BEDTIME aspirin 81 mg tablet,delayed release (DR/EC) 81 mg PO DAILY pregabalin 75 mg capsule 75 mg PO DAILY Referrals: Lavelle Mckeon MD [Physician] - 1 week Interventions: ED Discharge Assessment Last Done: 03/08/24 00:04 Discharge Date/Time: 03/08/24 00:06 Print Language: Czech
[2024-03-07 22:33] VITALS: BP 169/77; PULSE 91; RESP 13; TEMP 36.6; O2SAT 96
[2024-03-08 00:04] VITALS: BP 169/77; PULSE 91; RESP 13; TEMP 36.6; O2SAT 96
== END 2024-03-08 00:06 | disposition home or self-care (01) ==
PROVIDERS: Emergency Provider Internal Medicine; PCP Nurse Practitioner
DX: R44.3 Hallucinations, unspecified (principal); R41.82 Altered mental status, unspecified; R00.0 Tachycardia, unspecified; I12.0 Hypertensive chronic kidney disease with stage 5 chronic kidney disease or end stage renal disease; E11.22 Type 2 diabetes mellitus with diabetic chronic kidney disease; R06.02 Shortness of breath; N18.6 End stage renal disease; Z79.4 Long term (current) use of insulin; Z79.899 Other long term (current) drug therapy; Z87.891 Personal history of nicotine dependence; Z91.158 Patient's noncompliance with renal dialysis for other reason
CPT/HCPCS: 36415; 70450; 80053; 82140; 82803; 82947; 83735; 83880; 84484; 85025; 85610; 93005; 99284

== ENCOUNTER → 2024-03-07 19:36 | Outpatient (BNV) | payer MEDICARE, MEDICAID, SELFPAY | PROVIDERS: Emergency Provider Internal Medicine; PCP Nurse Practitioner; Visit Provider Internal Medicine Cardiovascular Disease | DX: R94.31 Abnormal electrocardiogram [ECG] [EKG] (principal) | CPT/HCPCS: 93010 ==

== ENCOUNTER → 2024-03-07 21:32 | Outpatient (BNV) | payer MEDICARE, MEDICAID, SELFPAY | PROVIDERS: Emergency Provider Internal Medicine; PCP Nurse Practitioner; Visit Provider Radiology Diagnostic Radiology | DX: R41.82 Altered mental status, unspecified (principal) | CPT/HCPCS: 70450 ==

== ENCOUNTER 2024-03-14 12:41 | Outpatient (AMB) | payer MEDICARE, MEDICAID, SELFPAY ==
--- NOTE | 2024-03-14 12:50 | A.OFFVIS_ITS ---
Vital Signs 03/14/24 12:56 Height 5 ft 6 in Weight 165 lb BMI 26.6 Intake Visit Reasons: Angio follow up/ wounds worsening Intake Note: follow up Right LE Angio 03/05/24 and also pt was seen at [facility] 2 days ago and had Arterial US testing Accompanied by: Son Allergies Iodinated Contrast Media [Contrast Dye] Allergy (Verified 03/14/24 12:58) Unknown HPI HPI Angio follow up/ wounds worsening: Details: Beau, a pleasant Yoruba-speaking only 68-year-old male patient, presenting today with his son who is interpreting for concerns for worsening pain of his right foot. He does have dry gangrene on the 1st through 3rd toes. He did recently have an angio with Dr. Cannon on 03/05/2024, which revealed enough runoff to the foot and heel. The patient states over the last week or so the pain in his foot has gotten worse and now it is involving the 4th and 5th toes on the right foot. His son states that he has been to the ER at [facility] in [place] approximately 3 times over the last week due to the pain and question of infection in the foot. There was no infection or osteo found in the foot. The patient was also seen at [facility] wound care on 03/12/2024 for a follow up and a lower extremity PVR/ABIs was performed, which did reveals poor perfusion to the right digits. They have recommended a follow up vascular surgery within 1-2 weeks as well as Betadine paint daily and applying a dry dressing. The patient states he is having difficulty sleeping at night due to the pain. 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 CHF (congestive heart failure) ESRD on dialysis Acute on chronic systolic and diastolic heart failure, NYHA class 3 HFrEF (heart failure with reduced ejection fraction) ESRD (end stage renal disease) Anemia ESRD (end stage renal disease) Chronic pericardial effusion Arthritis Asthma Restless leg syndrome Occlusive thrombus Pulmonary edema ROBERT (obstructive sleep apnea) Type 2 diabetes mellitus Hyperlipidemia Hypertension A-V fistula Falling Surgical History Recurrent pleural effusion Pleural effusion on right (07/13/23) History of surgery H/O colonoscopy Family History Father No problems noted. Mother No problems noted. Social History Household Members: Children Household Members Other:: son Housing: Apartment Do you presently have visiting nurse or other home services: Yes (daily for BP and POC check) Alcohol intake: never Comment: counts correct Patient Tobacco Use Status: Former Tobacco user Tobacco use type: Cigarette Second Hand Smoke Exposure: No Advance Directives Date on File: 10/04/23 service: No Review of Systems ENT Reports Normal hearing present Neuro Reports Normal hearing present and Denies Sensory deficit (Neuro) Physical Exam Vital Signs: BMI result Body Mass Index 26.6 Const General: healthy appearing and no acute distress Orientation/consciousness: patient oriented x3 HEENT Head: Yes normal to inspection Ears: hearing grossly normal bilaterally Mouth: Normal oral and palatal mucosa present Resp Effort & Inspection: normal respiratory effort and able to speak in complete sentences Auscultation: clear to auscultation bilaterally Cardio Jugular venous distension: no JVD Rate: regular rate Rhythm: regular rhythm Heart sounds: S1 normal heart sound present and S2 normal heart sound present Bruits: no abdominal aortic bruits, no carotid bruits, no femoral bruits and no renal bruits Peripheral pulses: Peripheral pulses 2+ throughout GI Inspection: Yes normal to inspection Palpation (GI): No Abdominal aortic bruit present Skin General skin exam: no rashes or lesions noted Wounds: no wounds Hair: normal Neuro General: patient oriented x3 Cranial nerves: Yes CN's II-XII intact bilaterally and Yes Normal hearing present Cognition (Neuro): normal cognition Gait exam (Neuro): Normal gait present Motor exam (neuro): 5/5 motor strength present throughout Sensory Exam: No Sensory deficit (Neuro) Extrem Other: Right foot: Dry gangrene noted on 1st, 2nd, and 3rd toes. Fourth and 5th toes are edematous and very painful to palpation. Very strong and palpable DP and PT pulses. No ulcers or wounds noted throughout the foot. General: Yes normal to inspection, Yes full ROM, Yes capillary refill normal and Yes normal gait Assessment & Plan Assessment & Plan (1) Dry gangrene: Code(s): I96 - Gangrene, not elsewhere classified Category: Medical Plan: Beau is presenting today for concerns of worsening pain in his right foot, particularly at the 4th and 5th toes. He does have a known history of dry gangrene on the 1st, 2nd, and 3rd and recently had an angio with Dr. Cannon on 03/05/2024. Due to the the gangrene of the 3 1st toes as well as the increasing pain and edema of the 4th and 5th toes, after a lengthy discussion with Dr. Cannon we will be placing the patient on the schedule for next Monday for a right TMA. I did have a lengthy discussion with the patient and his son that if the pain becomes too much or he is unable to take it anymore, then he should present himself to the ER. We discussed the importance of him continuing on his dialysis treatments. He is currently already on a pain regimen of Oxycodone, we discussed continuing that. We will reach out to the son and in the patient once the surgery is scheduled, likely on Monday due to the patient's dialysis schedule of MWF. If there are any questions or concerns, please do not hesitate to reach out to us. Coding Level of Care Code Est Pt Level 4 (09258) Diagnoses Dry gangrene I96
[2024-03-14 12:56] VITALS: BMI 26.6
== END 2024-03-14 13:26 | disposition home or self-care (01) ==
PROVIDERS: PCP Nurse Practitioner; Visit Provider Physician Assistant Surgical
DX: I96 Gangrene, not elsewhere classified (principal)
CPT/HCPCS: 99214

== ENCOUNTER → 2024-03-14 12:41 | Outpatient (BNVA) | payer MEDICARE, MEDICAID, SELFPAY | PROVIDERS: PCP Nurse Practitioner; Visit Provider Physician Assistant Surgical | DX: I96 Gangrene, not elsewhere classified (principal) | CPT/HCPCS: 99212 ==

== ENCOUNTER 2024-03-19 11:53 | Inpatient (IN) | payer MEDICARE, MEDICAID, SELFPAY ==
--- OUTSIDE RECORDS SUMMARY | 2024-03-14 16:34 | XMS_ITS | Encounter Summary ---
Author Organization [facility] Address [address] [place] [address] Encounter Details Date Type Department Care Team Description 2024-02-12 Telephone [facility] [address] [place] [address] Karmen Verdugo Medication Reconciliation was successfully completed by the [facility]. ASSESSMENT No Information TREATMENT PLAN No Information
--- NOTE | 2024-03-18 12:58 | HO.ANESPROP2 ---
Documented by User: Karmen Hudson NP 03/18/24 13:04 HPI - Anesthesia Eval Consult details Narrative: 68yo M for Right?All Toes Amputation ESRD on HD - MWF [facility] [place] admit 01/2024 with pleural effusion requiring thoracentesis, pericardial effusion. Chest CT showing multifocal pna and complex right sided pleural effusion. Case reviewed with Dr Ronda PATEL Active Problems Active Problems: All Active Problems Peripheral arterial disease (Acute) Dry gangrene (Acute) Cellulitis of right foot (Acute) Infection of toe (Acute) Hypertension (Acute) Chronic combined systolic and diastolic CHF (congestive heart failure) (Chronic) ESRD on dialysis (Chronic) Acute on chronic systolic and diastolic heart failure, NYHA class 3 (Chronic) Hypertension (Chronic) Type 2 diabetes mellitus (Chronic) Pleural effusion (Acute) Acute hypokalemia (Acute) Osteomyelitis (Acute) Somatization disorder (Acute) Trapped lung (Acute) Recurrent pleural effusion on right (Chronic) Exudative pleural effusion (Acute) Postop check (Acute) Hyponatremia (Acute) Hyperkalemia (Acute) ESRD (end stage renal disease) (Acute) Past Medical History Medical History Dry gangrene Chronic combined systolic and diastolic CHF (congestive heart failure) ESRD on dialysis Acute on chronic systolic and diastolic heart failure, NYHA class 3 HFrEF (heart failure with reduced ejection fraction) ESRD (end stage renal disease) Anemia ESRD (end stage renal disease) Chronic pericardial effusion Arthritis Asthma Restless leg syndrome Occlusive thrombus Pulmonary edema ROBERT (obstructive sleep apnea) Type 2 diabetes mellitus Hyperlipidemia Hypertension A-V fistula Falling Family History Family History Father No problems noted. Mother No problems noted. Family history of problems with anesthesia: No Surgical History Surgical History Recurrent pleural effusion Pleural effusion on right (07/13/23) History of surgery H/O colonoscopy History of Problems with Anesthesia: No Social History Social History Household Members: Children Household Members Other:: son Housing: Apartment Do you presently have visiting nurse or other home services: Yes (daily for BP and POC check) Alcohol intake: never Comment: counts correct Patient Tobacco Use Status: Former Tobacco user Tobacco use type: Cigarette Second Hand Smoke Exposure: No Use of substances other than those prescribed or required for medical reasons: No Advance Directives: No Advance Directives Information Provided: Yes Advance Directives Date on File: 10/04/23 Nutrition Risks: No Nutritional Risk service: No Meds Allergies Allergy/AdvReac Type Severity Reaction Status Date / Time Iodinated Contrast Media Allergy Facial Verified 03/19/24 12:13 [Contrast Dye] Swelling Home Medications ?Medication ?Instructions ?Recorded ?Confirmed ?Last Taken ?Type albuterol sulfate 90 mcg/actuation 2 puff inhalation Q4H PRN 04/19/22 03/05/24 03/05/24 History aerosol inhaler Shortness Of Breath allopurinol 100 mg tablet 100 mg PO MOWEFR@1600 04/19/22 02/02/24 11/27/23 History atorvastatin 40 mg tablet 40 mg PO DAILY 04/19/22 02/02/24 11/27/23 History doxazosin 4 mg tablet 4 mg PO BEDTIME 04/19/22 02/02/24 11/27/23 History furosemide 80 mg tablet 80 mg PO DAILY 04/19/22 02/02/24 11/27/23 History ipratropium 0.5 mg-albuterol 3 mg 3 ml inhalation QID PRN Wheezing 04/19/22 02/02/24 Unknown History (2.5 mg base)/3 mL nebulization soln omeprazole 20 mg capsule,delayed 20 mg PO DAILY@0630 04/19/22 02/02/24 11/27/23 History release sennosides 8.6 mg-docusate sodium 1 tab PO DAILY PRN Constipation 04/19/22 02/02/24 04/19/22 History 50 mg tablet (Senna-Time S) insulin glargine 100 unit/mL (3 22 unit subcut BEDTIME 04/10/23 03/05/24 03/04/24 History mL) subcutaneous pen (Lantus 22 Solostar U-100 Insulin) insulin lispro 100 unit/mL 1 sliding scale dose subcut TIDAC 04/10/23 03/05/24 03/04/24 History subcutaneous pen 2 aspirin 81 mg tablet,delayed 81 mg PO DAILY 06/20/23 02/02/24 11/27/23 History release pregabalin 75 mg capsule 75 mg PO DAILY 06/20/23 02/02/24 11/27/23 History fluticasone fur. 200 mcg-umeclid 1 ea inhalation DAILY 01/24/24 03/05/24 03/05/24 History 62.5 mcg-vilant 25 mcg inhalat.powder (Trelegy Ellipta) hydralazine 25 mg tablet 25 mg PO TID 01/24/24 02/02/24 Unknown History sucroferric oxyhydroxide 500 mg 500 mg PO TID 01/24/24 02/02/24 Unknown History chewable tablet (Velphoro) Exam Pertinent Lab Results Pertinent Lab Results: Laboratory Tests 03/07/24 20:24 WBC 11.6 H Hgb 10.3 L Hct 32.7 L Plt Count 227 Sodium 138 Potassium 4.3 Chloride 99 Carbon Dioxide 25 Narrative Narrative: EKG 03/2024 Vent. Rate : 149 BPM Atrial Rate : 149 BPM P-R Int : 126 ms QRS Dur : 092 ms QT Int : 260 ms P-R-T Axes : 000 -05 121 degrees QTc Int : 409 ms Sinus tachycardia Left ventricular hypertrophy with repolarization abnormality ( James product , Romhilt-Chen ) Abnormal ECG When compared with ECG of 28-NOV-2023 07:05, Vent. rate has increased BY 61 BPM T wave inversion now evident in Lateral leads ECHO 2023 Conclusions: - Normal left ventricular cavity size. There is mildly increased left ventricular wall thickness. The left ventricular systolic function is low normal. The visually estimated ejection fraction is between 50-55%. - Elevated filling pressures. - Mildly increased right ventricular cavity size. There is low normal right ventricular systolic function. - The left atrium is moderately dilated. The right atrium is moderately dilated. - Mildly elevated right atrial pressure. Severe pulmonary hypertension is present. - There are no definitive echocardiographic findings of tamponade physiology. Trace pericardial effusion around left ventricle. - Mild to moderate sized pericardial effusion around the right atrium. Assessment and Plan Assessment Anesthesia Assessment: Chart Reviewed Final Anesthetic Review Family History of Problems with Anesthesia: No History of Problems with Anesthesia: No Documented by User: Marion Horner MD 03/19/24 15:13 HPI - Anesthesia Eval Consult details Narrative: 68yo M for Right?All Toes Amputation ESRD on HD - MWF [facility] [place] admit 01/2024 with pleural effusion requiring thoracentesis, pericardial effusion. Chest CT showing multifocal pna and complex right sided pleural effusion. Case reviewed with Dr Bond Addendum: For Right transmetatarsal amputation. Pleural effusion 07/2023. Thoracocentesis and pleurex catheter. [facility] Past Medical History Medical History Dry gangrene Chronic combined systolic and diastolic CHF (congestive heart failure) ESRD on dialysis Acute on chronic systolic and diastolic heart failure, NYHA class 3 HFrEF (heart failure with reduced ejection fraction) ESRD (end stage renal disease) Anemia ESRD (end stage renal disease) Chronic pericardial effusion Arthritis Asthma Restless leg syndrome Occlusive thrombus Pulmonary edema ROBERT (obstructive sleep apnea) Type 2 diabetes mellitus Hyperlipidemia Hypertension A-V fistula Falling Family History Family History Father No problems noted. Mother No problems noted. Family history of problems with anesthesia: No Surgical History Surgical History Recurrent pleural effusion Pleural effusion on right (07/13/23) History of surgery H/O colonoscopy History of Problems with Anesthesia: No Social History Social History Household Members: Children Household Members Other:: son Housing: Apartment Do you presently have visiting nurse or other home services: Yes (daily for BP and POC check) Alcohol intake: never Comment: counts correct Patient Tobacco Use Status: Former Tobacco user Tobacco use type: Cigarette Second Hand Smoke Exposure: No Use of substances other than those prescribed or required for medical reasons: No Advance Directives: No Advance Directives Information Provided: Yes Advance Directives Date on File: 10/04/23 Nutrition Risks: No Nutritional Risk service: No Meds Allergies Allergy/AdvReac Type Severity Reaction Status Date / Time Iodinated Contrast Media Allergy Facial Verified 03/19/24 12:13 [Contrast Dye] Swelling Home Medications ?Medication ?Instructions ?Recorded ?Confirmed ?Last Taken ?Type albuterol sulfate 90 mcg/actuation 2 puff inhalation Q4H PRN 04/19/22 03/05/24 03/05/24 History aerosol inhaler Shortness Of Breath allopurinol 100 mg tablet 100 mg PO MOWEFR@1600 04/19/22 02/02/24 11/27/23 History atorvastatin 40 mg tablet 40 mg PO DAILY 04/19/22 02/02/24 11/27/23 History doxazosin 4 mg tablet 4 mg PO BEDTIME 04/19/22 02/02/24 11/27/23 History furosemide 80 mg tablet 80 mg PO DAILY 04/19/22 02/02/24 11/27/23 History ipratropium 0.5 mg-albuterol 3 mg 3 ml inhalation QID PRN Wheezing 04/19/22 02/02/24 Unknown History (2.5 mg base)/3 mL nebulization soln omeprazole 20 mg capsule,delayed 20 mg PO DAILY@0630 04/19/22 02/02/24 11/27/23 History release sennosides 8.6 mg-docusate sodium 1 tab PO DAILY PRN Constipation 04/19/22 02/02/24 04/19/22 History 50 mg tablet (Senna-Time S) insulin glargine 100 unit/mL (3 22 unit subcut BEDTIME 04/10/23 03/05/24 03/04/24 History mL) subcutaneous pen (Lantus 22 Solostar U-100 Insulin) insulin lispro 100 unit/mL 1 sliding scale dose subcut TIDAC 04/10/23 03/05/24 03/04/24 History subcutaneous pen 2 aspirin 81 mg tablet,delayed 81 mg PO DAILY 06/20/23 02/02/24 11/27/23 History release pregabalin 75 mg capsule 75 mg PO DAILY 06/20/23 02/02/24 11/27/23 History fluticasone fur. 200 mcg-umeclid 1 ea inhalation DAILY 01/24/24 03/05/24 03/05/24 History 62.5 mcg-vilant 25 mcg inhalat.powder (Trelegy Ellipta) hydralazine 25 mg tablet 25 mg PO TID 01/24/24 02/02/24 Unknown History sucroferric oxyhydroxide 500 mg 500 mg PO TID 01/24/24 02/02/24 Unknown History chewable tablet (Velphoro) Exam Height,Weight and Vital Signs: Height 5 ft 4 in Weight 74.843 kg Vital Signs Temp Pulse Resp BP Pulse Ox O2 Del Method O2 Flow Rate 03/19/24 14:59 71 16 166/67 H 96 Nasal Cannula 3 03/19/24 14:55 73 16 122/48 L 97 Nasal Cannula 3 03/19/24 14:45 73 16 182/48 H 95 Nasal Cannula 3 03/19/24 14:40 70 16 161/58 H 93 Nasal Cannula 3 03/19/24 14:25 80 12 149/64 H 92 Nasal Cannula 3 03/19/24 14:20 79 13 128/47 L 92 Nasal Cannula 3 03/19/24 14:15 86 16 128/47 L 100 Nasal Cannula 3 03/19/24 14:10 98.6 F 83 12 114/58 L 92 Nasal Cannula 3 03/19/24 12:59 180/88 H 03/19/24 12:48 98.1 F 79 18 195/104 H 99 Nasal Cannula 2 Pertinent Lab Results Pertinent Lab Results: Laboratory Tests 03/07/24 20:24 WBC 11.6 H Hgb 10.3 L Hct 32.7 L Plt Count 227 Sodium 138 Potassium 4.3 Chloride 99 Carbon Dioxide 25 Lab Results 03/19/24 03/19/24 Range/Units 12:10 12:26 WBC 13.6 H (4.8-10.8) X10*3/uL RBC 4.91 (4.60-5.80) X10*6/uL Hgb 11.2 L (14.0-18.0) g/dl Hct 37.1 L (42.0-52.0) % MCV 75.6 L (80.0-98.0) fL MCH 22.8 L (27.0-33.0) pg MCHC 30.2 L (31.0-36.0) g/dl RDW 17.5 H (11.0-16.0) % Plt Count 351 D (160-400) X10*3/uL MPV 11.2 (9.4-12.4) fL Absolute Nucleated RBC 0.020 H (0.0-0.012) X10*3/uL Nucleated RBC % (auto) 0.1 (0.0-0.2) /100WBC PT 13.7 H (10.9-12.4) SEC INR 1.2 H (0.9-1.1) APTT 41.3 H (26.0-36.8) SEC Sodium 142 (135-145) mmol/L Potassium 5.2 H D (3.3-5.1) mmol/L Chloride 100 (96-108) mmol/L Carbon Dioxide 31 H (22-29) mmol/L Anion Gap 16 (12-20) BUN 48 H (9-16) mg/dL Creatinine 7.97 H* (0.5-1.4) mg/dL Estim Creat Clear Calc 8.3 Estimated GFR 7 POC Glucose 102 (60-115) mg/dL Random Glucose 108 (60-115) mg/dL Calcium 8.9 (8.4-10.2) mg/dL Airway Mallampati Class: III TM Dist: >3cm Neck ROM: Full Loose/Missing/Broken Teeth: Yes (Only a few teeth in bottom. Denies loose) Heart: RRR Lungs: CTAB Assessment and Plan Assessment Anesthesia Assessment: Anesthesia Plan Discussed and Chart Reviewed Final Anesthetic Review Family History of Problems with Anesthesia: No History of Problems with Anesthesia: No NPO: Yes ASA Class: IV Final Preanesthetic Review: No Changes in Pt Med Stat, Meds/Allgs Chart Reviewed, Consent Obtained/Reviewed and Anes Risks/Benef Reviewed Patient Risk: Intermediate Procedure Risk: Low Assessment/Block/Sedation in SS: Assess/Block/Sedation-SS Anesthetic Plan Anesthetic Plan: GA Disposition: Standard PACU
[2024-03-19] VITALS (14 sets, daily range): BP systolic 114–195; BP diastolic 47–104; PULSE 68–105; RESP 12–18; TEMP 36.1–37; O2SAT 92–100; BMI 28.3
--- NOTE | 2024-03-19 12:01 | PC.NURSE ---
brought patient in the preop area from the waiting room and patients own oxygen tank was empty. unknown when it ran out. borught patient in and applied 2l nc/. patiwnt was with family member. 99 percent 2.5 l n/c
[2024-03-19 12:23] LABS: INTERNATIONAL NORM RATIO 1.2 (0.9-1.1); Prothrombin Time 13.7 SEC (10.9-12.4)
[2024-03-19 12:24] LABS: Hematocrit 37.1 % (42.0-52.0); Hemoglobin 11.2 g/dl (14.0-18.0); Mean Corpuscular HGB Conc 30.2 g/dl (31.0-36.0); Mean Corpuscular Hemoglobin 22.8 pg (27.0-33.0); Mean Corpuscular Volume 75.6 fL (80.0-98.0); Mean Platelet Volume 11.2 fL (9.4-12.4); NRBC Pct Auto 0.1 /100WBC (0.0-0.2); Platelet Count 351 X10*3/uL (160-400); Red Blood Count 4.91 X10*6/uL (4.60-5.80); Red Cell Distribution Width 17.5 % (11.0-16.0); White Blood Count 13.6 X10*3/uL (4.8-10.8)
[2024-03-19 12:25] LABS: Partial Thromboplastin Time 41.3 SEC (26.0-36.8)
[2024-03-19 12:30] LABS: Glucose, Whole Blood 102 mg/dL (60-115)
--- NOTE | 2024-03-19 12:32 | PC.NURSE ---
patient states he took his inhalers this morning and 4 medication today. my blood pressure meds unknown of what medications were given. spoke to son and unknown med names and patient stated a nurse gave him his medications.
[2024-03-19 12:42] LABS: Anion Gap 16 (12-20); Blood Urea Nitrogen 48 mg/dL (9-16); Calcium 8.9 mg/dL (8.4-10.2); Carbon Dioxide 31 mmol/L (22-29); Chloride 100 mmol/L (96-108); Glucose Random 108 mg/dL (60-115); Potassium 5.2 mmol/L (3.3-5.1); Sodium 142 mmol/L (135-145)
--- NOTE | 2024-03-19 12:54 | MHC.SHP ---
Pre-Procedural Eval Section A - 24 Hr Update-Section A only Date of Service: 03/19/24 The patient is an INPATIENT: No Changes since office visit: Yes Patient answered all questions The patient has been examined within 24 hours of the surgical procedure. The History & Physical has been completed within 30 days and I have reviewed it.: Yes Section B - Complete if H&P > 30 days Chief Complaint: post op Allergies: Allergies Allergy/AdvReac Type Severity Reaction Status Date / Time Iodinated Contrast Media Allergy Facial Verified 03/19/24 12:13 [Contrast Dye] Swelling Plan I have reviewed the history and physical and performed a pertinent physical examination on my patient. No changes have occurred unless specified. Time Spent With Patient Time: Total time managing care of this patient today ____ minutes.
[2024-03-19 12:58] LABS: Creatinine Clr Calc Pharmacy 8.3; Estimated Glomerular Filt Rate 7
[2024-03-19] MEDS: 0.9 % Sodium Chloride 1,000 ML 50 ML IVCONT (13:04)
--- NOTE | 2024-03-19 14:15 | P.OP_ITS ---
Operative Note Operative Note Date of Service: 03/19/24 Narrative: Operative note by [facility] Preoperative diagnosis: Right foot gangrene Postoperative diagnosis: Same Procedure: Right transmetatarsal amputation Surgeon:Baltazar Cannon M.D. Equal Opportunity Officer: Amarilis MONTERO Anesthesia: General Specimens: 1 Drains: None Estimated blood loss: 50 mL Indications: 68-year-old gentleman with a history of diabetes and peripheral vascular disease has gangrene of the right 1st 2nd 3rd toes. He now presents for transmetatarsal amputation. The patient has signed the informed consent after reviewing risks, complications, benefits, and alternatives previously discussed with the patient. The patient was given the opportunity to ask any additional questions or voice any concerns. All questions were answered to the patient's satisfaction. Procedure in detail: Patient was brought to the operating room prior to which a time-out was called for patient identification and site verification. Right foot was prepped and draped in a standard surgical fashion. Curvilinear incision was carried out over the dorsum of the foot. And we created a posterior flap as well. We took the incision down through the skin and fascia. Using electrocautery we obtain hemostasis and got down to the level of the bone. Once we were able to do that in a similar fashion we went through the soft tissue with electrocautery. Once this was all accomplished we used a power saw to get through the bones. We made a clean cut across the transmetatarsal. Once this was done we created the posterior flap by dissecting just posterior to the bones using electrocautery and leaving a nice muscular flap. Once this was done the forefoot was removed in its entirety. Once this was accomplished we irrigated the wound out thoroughly. Hemostasis was achieved. The fascia on the dorsum of the foot was reapproximated to the flap. This was done using interrupted 2-0 Polysorb along the entire length of the incision. Once this was done a more superficial layer was then created with a 2-0 Polysorb in an interrupted fashion as well. Finally skin was closed using mattress 2-0 nylon sutures in 5 different locations. And then we closed using skin clips along the entire length. Xeroform and a sterile dressing were applied. At the end the case sponge instrument counts were correct. Patient tolerated the procedure well returned to recovery with stable vitals. This note is constructed using voice recognition software. While every effort has been made to ensure accuracy, desk reporter errors may have been included. Thank you for allowing me to participate in the care of your patient. Yours sincerely, Baltazar Cannon MD, FACS, R.P.V.I.
[2024-03-19] MEDS: HYDROmorphone HCl 0.5 MG/0.5 ML SYRINGE IVPUSH ×3 (14:35→14:54)
--- NOTE | 2024-03-19 15:18 | P.CONHOSP_ITS ---
History of Present Illness Data of Consult Service Date: 03/19/24 Primary Care Provider: Shayla Augustine NP HPI 68-year-old man with a history of hypertension, CKD admitted by vascular surgery and is status post right transmetatarsal amputation. Surgery was unremarkable. Patient denies any nausea or vomiting. Patient is hemodynamically stable, stable vital signs. Family in the room with patient that is resting in bed. Review of Systems 2 Review of Systems: Denies any recent fever chills or decrease in appetite respiratory denies any shortness of breath or cough cardiovascular denied chest pain gastrointestinal denies any dysphagia abdominal pain nausea vomiting or diarrhea genitourinary denies any dysuria frequency or hematuria musculoskeletal denies any joint pain or swelling neuropsych denies any weakness or seizures all other systems reviewed are negative [facility] Medical History Dry gangrene Chronic combined systolic and diastolic CHF (congestive heart failure) ESRD on dialysis Acute on chronic systolic and diastolic heart failure, NYHA class 3 HFrEF (heart failure with reduced ejection fraction) ESRD (end stage renal disease) Anemia ESRD (end stage renal disease) Chronic pericardial effusion Arthritis Asthma Restless leg syndrome Occlusive thrombus Pulmonary edema ROBERT (obstructive sleep apnea) Type 2 diabetes mellitus Hyperlipidemia Hypertension A-V fistula Falling Family History Father No problems noted. Mother No problems noted. 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 If so, by whom?: No Do you feel safe in your current relationship?: No Current Relationship Is there a partner from a previous relationship who is making you feel unsafe now?: No Are you made to feel afraid or neglected: No Advance Directives: No Advance Directives Information Provided: Yes Advance Directives Date on File: 10/04/23 Do you have a plan to hurt others: No Plan Recently lost weight without trying: Yes How much weight loss: 24-33 pounds Eating poorly because of decreased appetite: No Nutrition screen score: 5 Nutrition Risks: No Nutritional Risk service: No Meds Allergies Allergy/AdvReac Type Severity Reaction Status Date / Time Iodinated Contrast Media Allergy Facial Verified 03/19/24 12:13 [Contrast Dye] Swelling Active Medications: Current Medications Acetaminophen (Acetaminophen 325 Mg Tablet) 650 mg PO Q6H PRN PRN Reason: Pain, Mild 1-3,fever,headache Calcium Carbonate (Calcium Carbonate 750 Mg Tab.Chew) 750 mg PO Q4H PRN PRN Reason: Heartburn Fentanyl (Fentanyl Citrate/Pf 100 Mcg/2 Ml Vial) 25 mcg IVPUSH Q5M PRN PRN Reason: Pain, Moderate to Severe (Pain Scale 4-10) Stop: 03/19/24 20:22 Heparin Sodium (Porcine) (Heparin Sodium,Porcine 5,000 Unit/Ml Vial) 5,000 unit SUBCUT Q8H [facility] Hydromorphone HCl (Hydromorphone Hcl 0.5 Mg/0.5 Ml Syringe) 0.5 mg IVPUSH Q5M PRN PRN Reason: Pain, Moderate to Severe (Pain Scale 4-10) Stop: 03/19/24 20:32 Last Admin: 03/19/24 14:54 Dose: 0.5 mg Hydromorphone HCl (Hydromorphone Hcl 0.5 Mg/0.5 Ml Syringe) 0.5 mg IVPUSH Q5M PRN PRN Reason: Pain, Moderate to Severe (Pain Scale 4-10) Stop: 03/19/24 20:33 Sodium Chloride (Ns) 1,000 mls @ 50 mls/hr IVCONT .Q20H [facility] Last Admin: 03/19/24 13:04 Dose: 50 mls/hr Cefazolin Sodium/Dextrose (Ancef) 2 gm in 50 mls @ 100 mls/hr IV ONCE@1900 [place] Stop: 03/19/24 19:29 Magnesium Hydroxide (Milk Of Magnesia 30 Ml Oral.Susp) 30 ml PO DAILY PRN PRN Reason: Constipation Melatonin (Melatonin 3 Mg Tablet) 6 mg PO BEDTIME PRN PRN Reason: Insomnia Morphine Sulfate (Morphine Sulfate 2 Mg/Ml Cartridge) 2 mg IVPUSH Q4H PRN; Protocol PRN Reason: Pain, Severe (Pain Scale 7-10) Ondansetron HCl (Ondansetron Hcl 4 Mg/2 Ml Vial) 4 mg IVPUSH ONCE PRN PRN Reason: Nausea and Vomiting Stop: 03/19/24 20:22 Oxycodone HCl (Oxycodone Hcl Immed Release 5 Mg Tablet) 5 mg PO Q4H PRN PRN Reason: Pain, Moderate(Pain Scale 4-6) Sodium Chloride (0.9 % Sodium Chloride Flush 3 Ml Syringe) [facility]ations ?Medication ?Instructions ?Recorded ?Confirmed ?Last Taken ?Type albuterol sulfate 90 mcg/actuation 2 puff inhalation Q4H PRN 04/19/22 03/19/24 03/05/24 History aerosol inhaler Shortness Of Breath allopurinol 100 mg tablet 100 mg PO MOWEFR@1600 04/19/22 03/19/24 03/18/24 History atorvastatin 40 mg tablet 40 mg PO DAILY 04/19/22 03/19/24 03/19/24 History doxazosin 4 mg tablet 4 mg PO BEDTIME 04/19/22 03/19/24 03/18/24 History furosemide 80 mg tablet 80 mg PO DAILY 04/19/22 03/19/24 03/19/24 History ipratropium 0.5 mg-albuterol 3 mg 3 ml inhalation QID PRN Wheezing 04/19/22 03/19/24 Unknown History (2.5 mg base)/3 mL nebulization soln omeprazole 20 mg capsule,delayed 20 mg PO DAILY@0630 04/19/22 03/19/24 03/19/24 History release sennosides 8.6 mg-docusate sodium 1 tab PO DAILY PRN Constipation 04/19/22 03/19/24 04/19/22 History 50 mg tablet (Senna-Time S) insulin glargine 100 unit/mL (3 22 unit subcut BEDTIME 04/10/23 03/19/24 03/18/24 History mL) subcutaneous pen (Lantus Solostar U-100 Insulin) insulin lispro 100 unit/mL 1 sliding scale dose subcut TIDAC 04/10/23 03/19/24 03/18/24 History subcutaneous pen aspirin 81 mg tablet,delayed 81 mg PO DAILY 06/20/23 03/19/24 03/19/24 History release pregabalin 75 mg capsule 75 mg PO DAILY 06/20/23 03/19/24 03/19/24 History fluticasone fur. 200 mcg-umeclid 1 ea inhalation DAILY 01/24/24 03/19/24 03/19/24 History 62.5 mcg-vilant 25 mcg inhalat.powder (Trelegy Ellipta) hydralazine 25 mg tablet 25 mg PO TID 01/24/24 03/19/24 03/19/24 History sucroferric oxyhydroxide 500 mg 500 mg PO TID 01/24/24 03/19/24 03/19/24 History chewable tablet (Velphoro) oxycodone 5 mg tablet 2.5 - 5 mg PO Q6H PRN pain 03/19/24 03/19/24 Unknown History Physical Exam 2 Vital Signs and Narrative: Vital Signs: Last Vital Signs Temp 98.4 F 03/19/24 15:14 Pulse 94 03/19/24 15:14 Resp 18 03/19/24 15:14 BP 167/62 H 03/19/24 15:10 Pulse Ox 92 03/19/24 15:14 O2 Del Method Room Air 03/19/24 15:14 O2 Flow Rate 3 03/19/24 15:10 BMI result Body Mass Index 28.3 Appearing in no acute distress head is normocephalic atraumatic eyes pupils are PERRLA sclera is anicteric mouth throat mucous membranes are intact and moist neck is supple no lymphadenopathy, no JVD noted lung sounds are clear to auscultation heart regular rate rhythm, clear S1, S2 positive bowel sounds, abdomen is soft, nontender neuro patient is alert x3, no focal deficits Results Labs 03/19/24 12:10 03/19/24 12:10 Labs: Laboratory Results - last 24 hr 03/19/24 03/19/24 12:10 12:26 MCV 75.6 L MCH 22.8 L MCHC 30.2 L RDW 17.5 H Plt Count 351 D MPV 11.2 Absolute Nucleated RBC 0.020 H Nucleated RBC % (auto) 0.1 PT 13.7 H INR 1.2 H APTT 41.3 H Anion Gap 16 Estim Creat Clear Calc 8.3 Estimated GFR 7 POC Glucose 102 Random Glucose 108 Calcium 8.9 Assessment and Plan (1) Hypertension: Status: Chronic Plan 68-year-old man admitted by vascular surgery and is status post right transmetatarsal amputation secondary to right foot gangrene Right foot TMA Management as per surgical team Hypertension Stable blood pressure, continue home medications Diabetes mellitus type 2 Sliding scale, ADA diet GERD Continue PPI End-stage renal disease on hemodialysis Continue regular dialysis days Nephrology consultation (Dr. Friedman) DVT prophylaxis with heparin as per surgical team Full code Medical consultation complete. Will sign off
[2024-03-19] MEDS: Heparin Sodium,Porcine 5,000 UNIT/ML VIAL 5000 UNIT SUBCUT ×2 (15:50→22:53)
[2024-03-19] MEDS: 0.9 % Sodium Chloride Flush 3 ML SYRINGE IVFLUSH ×2 (15:51→19:43)
[2024-03-19] MEDS: Morphine Sulfate 2 MG/ML CARTRIDGE IVPUSH ×3 (16:06→23:50)
[2024-03-19 16:23] LABS: Glucose, Whole Blood 150 mg/dL (60-115)
--- NOTE | 2024-03-19 17:01 | PHA.MEDREC ---
Addendum entered by Nigel Charles 03/19/24 17:16: reviewed Original Note: Pharmacy Consult ? Medication Reconciliation Pharmacy has completed the medication reconciliation. Spoke with patients family at bedside and they confirmed his medications. They confirmed he is still taking the Carvedilol, they did not remember the dose but stated he is taking it twice a day, in claims that hasn't been filled since10/02 for 30 days. They also confirmed he is still taking the Hydralazine 25mg tab and confirmed he was taking it three times a day for HBP, in claims that hasn't been filled since December 31 for 30 days. They also confirmed he is still taking the Insulin Lispro and when asked how he takes it the family confirmed it is based on a sliding scale three times day before meals. They confirmed the patient is going to [facility] in [place] primarily for his medications, with [facility] [address] in [place] being a secondary one incase. I called [facility] to inquire on the Carvedilol, Hydralazine and Insulin Lispro and they were able to tell me that they last filled the Carvedilol 6.25mg tab October 02 for 30 days. They confirmed the Hydralazine 25mg tab they last filled 12/31 for 30 days and they confirmed the last filled the Insulin Lispro 12/26 and they stated they calculated it at their facility to have it last the patient 50 days. The family at bedside confirmed he took his morning mediations this morning, he did not do the insulin today, and everything else yesterday.
[2024-03-19] MEDS: oxyCODONE HCl Immed Release 5 MG TABLET PO (17:13)
--- NOTE | 2024-03-19 17:17 | PC.NURSE ---
Patient has HD port to right upper chest, also has AV fistula to left arm that has not been used in 4-5months per pt, no thrill or bruit present, blood pressures to be taken on left calf since he is s/p right TMA
[2024-03-19] MEDS: ceFAZolin Sodium/Dextrose,Iso 2 GM/50 ML PIGGYBACK IV (18:21)
--- NOTE | 2024-03-19 18:22 | PC.NURSE ---
Patient complaining of 10/10 pain after being medicated with prn morphine and oxycodone, patient not due for any other pain medication besides tylenol at this time. [place] text sent to KYLAH Mcdaniels, instructed to give tylenol at this time, patient refused tylenol and provider updated. No new orders at this time
[2024-03-19 20:42] LABS: Glucose, Whole Blood 247 mg/dL (60-115)
[2024-03-19] MEDS: Insulin Lispro 100 UNIT/ML 3 ML VIAL SUBCUT (21:40)
[2024-03-19] MEDS: HYDROmorphone HCl 2 MG/ML VIAL IVPUSH (21:41)
--- NOTE | 2024-03-20 01:50 | PC.NURSE ---
Addendum entered by Loree Craig RN 03/20/24 04:16: Pt seen fidgeting his right foot dressing, advised not to removed dressing, pt still took off marzena bandage, replaced and reiterated not to remove dressing, early am pt removed all his dressing, pt was reeducated, dressing was replaced. Original Note: Pt was seen on bed alert and oriented c/o post op right foot pain 10/10, restless because of pain, prn Morphine 2 mg IV given, pt verbalized no effect, Dr. Junior updated, DR. Cannon was made aware, Dilaudid 2 mg IVP given x1, pt verbalized relief after, kept right leg elevated.
[2024-03-20 03:22] VITALS: BP 169/80; PULSE 103; RESP 18; TEMP 36.1; O2SAT 97
[2024-03-20] MEDS: Morphine Sulfate 2 MG/ML CARTRIDGE IVPUSH ×2 (04:01→08:32)
[2024-03-20 06:08] LABS: MANUAL DIFF FLAG NO
[2024-03-20 06:11] LABS: Basophils Absolute Auto 0.1 X10*3/uL (0.0-0.2); Basophils Percent Auto 0.3 % (0-2); Eosinophils Absolute Auto 0.1 X10*3/uL (0.0-0.4); Eosinophils Percent Auto 0.3 % (0-4); Hematocrit 34.8 % (42.0-52.0); Hemoglobin 10.4 g/dl (14.0-18.0); Imm Gran Abs Auto 0.09 X10*3/uL (0.00-0.03); Imm Gran Pct Auto 0.5 % (0.0-0.4); Lymphocytes Absolute Auto 0.8 X10*3/uL (1.2-4.9); Lymphocytes Percent Auto 4.2 % (20-40); Mean Corpuscular HGB Conc 29.9 g/dl (31.0-36.0); Mean Corpuscular Hemoglobin 22.9 pg (27.0-33.0); Mean Corpuscular Volume 76.7 fL (80.0-98.0); Mean Platelet Volume 10.3 fL (9.4-12.4); Monocytes Absolute Auto 1.1 X10*3/uL (0.1-1.2); Monocytes Percent Auto 6.1 % (2-11); NRBC Pct Auto 0.1 /100WBC (0.0-0.2); Neutrophils Absolute Auto 15.6 x10*3/uL (2.0-8.3); Neutrophils Percent Auto 88.6 % (45-73); Platelet Count 272 X10*3/uL (160-400); Red Blood Count 4.54 X10*6/uL (4.60-5.80); Red Cell Distribution Width 16.8 % (11.0-16.0); White Blood Count 17.7 X10*3/uL (4.8-10.8)
[2024-03-20] MEDS: Heparin Sodium,Porcine 5,000 UNIT/ML VIAL 5000 UNIT SUBCUT ×3 (06:14→21:35)
[2024-03-20] MEDS: oxyCODONE HCl Immed Release 5 MG TABLET PO ×4 (06:17→19:52)
[2024-03-20 06:33] LABS: Anion Gap 23 (12-20); Blood Urea Nitrogen 61 mg/dL (9-16); Carbon Dioxide 22 mmol/L (22-29); Chloride 99 mmol/L (96-108); Creatinine Clr Calc Pharmacy 7.1; Estimated Glomerular Filt Rate 6; Glucose Random 255 mg/dL (60-115); Potassium 5.9 mmol/L (3.3-5.1); Sodium 138 mmol/L (135-145)
[2024-03-20 07:15] LABS: Glucose, Whole Blood 251 mg/dL (60-115)
[2024-03-20 08:00] VITALS: BP 159/63; PULSE 57; RESP 18; TEMP 36.5; O2SAT 92
[2024-03-20] MEDS: Insulin Lispro 100 UNIT/ML 3 ML VIAL SUBCUT ×2 (08:33→16:56)
[2024-03-20] MEDS: 0.9 % Sodium Chloride Flush 3 ML SYRINGE IVFLUSH ×3 (08:34→21:35)
--- NOTE | 2024-03-20 09:00 | MHC.CLN ---
NUTRITION REVIEW OF WEIGHT HX SHOWS WEIGHT ESSENTIALLY STABLE X MONTHS. PATIENT WITH ESRD, ON HEMODIALYSIS. WEIGHT FLUCTUATION ANTICIPATED WITH HD. DIET=DIABETIC 2000 KCAL, 2 G SODIUM.
--- NOTE | 2024-03-20 10:03 | P.PNVS_ITS ---
Subjective Subjective Date of Service: 03/20/24 Interval history: Beau is post op day 1 s/p right TMA. He is out of bed and in the chair this morning. He had some increased pain late last night and was given IV Dilaudid. He continues with the Morphine and Oxycodone for pain and has been refusing Tylenol for pain. He also has been taking the marzena wrap down and redirected several times. He has not had dialysis yet today. Physical Exam 2 Vital Signs: Vital Signs: Last Vital Signs Temp 97.7 F 03/20/24 08:00 Pulse 57 03/20/24 08:00 Resp 18 03/20/24 08:00 BP 159/63 H 03/20/24 08:00 Pulse Ox 92 03/20/24 08:00 O2 Del Method Nasal Cannula 03/20/24 08:00 O2 Flow Rate 3 03/20/24 08:00 BMI result Body Mass Index 28.3 Const: General: comfortable and no acute distress Orientation/consciousness: patient oriented x3 HEENT: Ears: hearing grossly normal bilaterally Resp: Effort & Inspection: normal respiratory effort and able to speak in complete sentences Auscultation: clear to auscultation bilaterally Cardio: Rate: regular rate Rhythm: regular rhythm Heart sounds: S1 normal heart sound present and S2 normal heart sound present Bruits: no abdominal aortic bruits, no carotid bruits, no femoral bruits and no renal bruits GI: Palpation (GI): No Abdominal aortic bruit present Neuro: General: patient oriented x3 Cranial nerves: Yes CN's II-XII intact bilaterally Extrem: Other: Right TMA site: marzena bandage not on today. No discharge/bleeding noted on the Kerlix wrap. Progress Note: A&P Assessment and plan (1) Status post transmetatarsal amputation of right foot: Status: Acute Assessment and Plan: Beau is doing ok today. He continues to require increased doses of pain medications but is refusing Tylenol. We have ordered PT/OT consults with heel touch only. We will have him ambulate with assistance. The pt will need dialysis today as well, Nephrology has been consulted. We will discontinue his IV pain medications and switched him to long acting Oxy and continue with prn Oxy. We discussed with the pt that we will change his dressings tomorrow and if everything looks good, then we will likely discharge him home tomorrow. If there are any questions or concerns, please do not hesitate to reach out to us. Time Spent With Patient Time: Total time managing care of this patient today ____ minutes. Procedures Date of Service Date of Service: 03/20/24 Quality Stroke Does the patient have a stroke diagnosis?: No VTE Prior VTE?: No VTE Risk Level:: Medical - moderate - high VTE Device Contraindication: Treatment Not Indicated VTE Drug Contraindication: N/A - Med Ordered
--- NOTE | 2024-03-20 10:14 | HO.POSTANES ---
Post Anesthesia Evaluation Post Anesthesia Evaluation Date of Service: 03/20/24 Vital Signs: Vital Signs Temp Pulse Resp BP Pulse Ox O2 Del Method O2 Flow Rate 03/20/24 08:00 97.7 F 57 18 159/63 H 92 Nasal Cannula 3 03/20/24 03:22 96.9 F 103 H 18 169/80 H 97 Nasal Cannula 3 03/19/24 23:34 96.9 F 105 H 18 146/65 H 95 Nasal Cannula 3 Anesthesia: General LMA Mental Status: Awake Pain Control: Satisfactory Nausea/Vomiting: None Hydration: Adequate Anesthesia-Related Issues: No Anes. Related Issues
[2024-03-20 11:19] LABS: Glucose, Whole Blood 134 mg/dL (60-115)
--- NOTE | 2024-03-20 11:30 | MHC.CM.PN ---
PT LIVES [place] HAS SERVIES THRU [facility] [place] Mon AND Mon [facility] PT HAS HOME 02 AND WILL TRANSPORYT PT HOME WHEN DCD
--- NOTE | 2024-03-20 12:14 | PM.CNNEP ---
History of Present Illness Reason for Consult Consult date: 03/20/24 Reason for consult: End stage renal disease Chief Complaint Chief complaint: post op History of Present Illness Narrative: 68-year-old man with a history of hypertension, CKD admitted by vascular surgery and is status post right transmetatarsal amputation. Surgery was unremarkable. Patient denies any nausea or vomiting. Patient is hemodynamically stable, stable vital signs. He usually undergoes hemodialysis at [facility]. He has usual director of student financial aid is Dr. Santana and we cover for him at [facility]. 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 Mother No problems noted. Surgical History Surgical History Recurrent pleural effusion Pleural effusion on right (07/13/23) History of surgery H/O colonoscopy Social History Social History Household Members: Children Household Members Other:: son Housing: House Do you presently have visiting nurse or other home services: Yes ([employer]IDENT [employer]PONSE MANAGER daily) Alcohol intake: never Comment: counts correct Patient Tobacco Use Status: Former Tobacco user Tobacco use type: Cigarette Second Hand Smoke Exposure: No Use of substances other than those prescribed or required for medical reasons: No Currently Displaying Signs/Symptoms of Drug Intoxication Withdrawal: No Have you been hit, kicked, punched, or otherwise hurt by someone within the past year? If so, by whom?: No Do you feel safe in your current relationship?: No Current Relationship Is there a partner from a previous relationship who is making you feel unsafe now?: No Are you made to feel afraid or neglected: No Advance Directives: No Advance Directives Information Provided: Yes Advance Directives Date on File: 10/04/23 Do you have a plan to hurt others: No Plan Recently lost weight without trying: Yes How much weight loss: 24-33 pounds Eating poorly because of decreased appetite: No Nutrition screen score: 5 Nutrition Risks: No Nutritional Risk service: No Meds Allergies Allergy/AdvReac Type Severity Reaction Status Date / Time Iodinated Contrast Media Allergy Facial Verified 03/19/24 12:13 [Contrast Dye] Swelling Active Medications: Current Medications Acetaminophen (Acetaminophen 325 Mg Tablet) 650 mg PO Q6H PRN PRN Reason: Pain, Mild 1-3,fever,headache Calcium Carbonate (Calcium Carbonate 750 Mg Tab.Chew) 750 mg PO Q4H PRN PRN Reason: Heartburn Glucose (Glucose Gel 15 Gm Gel..Gram.) 15 gm PO Q15M PRN; Protocol PRN Reason: per Hypoglycemia Standing Ord. Heparin Sodium (Porcine) (Heparin Sodium,Porcine 5,000 Unit/Ml Vial) 5,000 unit SUBCUT Q8H [facility] Last Admin: 03/20/24 06:14 Dose: 5,000 unit Dextrose (D10) 250 mls @ 750 mls/hr IV Q15M PRN; Protocol PRN Reason: per Hypoglycemia Standing Ord. Insulin Human Lispro (Insulin Lispro 100 Unit/Ml 3 Ml Vial) 0 unit SUBCUT QIDACHS [facility]; Protocol Last Admin: 03/20/24 11:23 Dose: Not Given Magnesium Hydroxide (Milk Of Magnesia 30 Ml Oral.Susp) 30 ml PO DAILY PRN PRN Reason: Constipation Melatonin (Melatonin 3 Mg Tablet) 6 mg PO BEDTIME PRN PRN Reason: Insomnia Oxycodone HCl (Oxycodone Hcl Immed Release 5 Mg Tablet) 5 mg PO Q4H PRN PRN Reason: Pain, Moderate(Pain Scale 4-6) Last Admin: 03/20/24 11:17 Dose: 5 mg Oxycodone HCl (Oxycodone Hcl Er 10 Mg Tab.Er.12h) 10 mg PO BID [facility] Sodium Chloride (0.9 % Sodium Chloride Flush 3 Ml Syringe) 3 ml IVFLUSH QSHIFT [facility] Last Admin: 03/20/24 08:34 Dose: 3 ml Home Medications ?Medication ?Instructions ?Recorded ?Confirmed ?Last Taken ?Type albuterol sulfate 90 mcg/actuation 2 puff inhalation Q4H PRN 04/19/22 03/19/24 03/05/24 History aerosol inhaler Shortness Of Breath allopurinol 100 mg tablet 100 mg PO MOWEFR@1600 04/19/22 03/19/24 03/18/24 History atorvastatin 40 mg tablet 40 mg PO DAILY 04/19/22 03/19/24 03/19/24 History doxazosin 4 mg tablet 4 mg PO BEDTIME 04/19/22 03/19/24 03/18/24 History furosemide 80 mg tablet 80 mg PO DAILY 04/19/22 03/19/24 03/19/24 History ipratropium 0.5 mg-albuterol 3 mg 3 ml inhalation QID PRN Wheezing 04/19/22 03/19/24 Unknown History (2.5 mg base)/3 mL nebulization soln omeprazole 20 mg capsule,delayed 20 mg PO DAILY@0630 04/19/22 03/19/24 03/19/24 History release sennosides 8.6 mg-docusate sodium 1 tab PO DAILY PRN Constipation 04/19/22 03/19/24 04/19/22 History 50 mg tablet (Senna-Time S) insulin glargine 100 unit/mL (3 22 unit subcut BEDTIME 04/10/23 03/19/24 03/18/24 History mL) subcutaneous pen (Lantus Solostar U-100 Insulin) insulin lispro 100 unit/mL 1 sliding scale dose subcut TIDAC 04/10/23 03/19/24 03/18/24 History subcutaneous pen aspirin 81 mg tablet,delayed 81 mg PO DAILY 06/20/23 03/19/24 03/19/24 History release pregabalin 75 mg capsule 75 mg PO DAILY 06/20/23 03/19/24 03/19/24 History fluticasone fur. 200 mcg-umeclid 1 ea inhalation DAILY 01/24/24 03/19/24 03/19/24 History 62.5 mcg-vilant 25 mcg inhalat.powder (Trelegy Ellipta) hydralazine 25 mg tablet 25 mg PO TID 01/24/24 03/19/24 03/19/24 History sucroferric oxyhydroxide 500 mg 500 mg PO TID 01/24/24 03/19/24 03/19/24 History chewable tablet (Velphoro) oxycodone 5 mg tablet 2.5 - 5 mg PO Q6H PRN pain 03/19/24 03/19/24 Unknown History Physical Exam Vital Signs: Last Vital Signs Temp 97.7 F 03/20/24 08:00 Pulse 57 03/20/24 08:00 Resp 18 03/20/24 08:00 BP 159/63 H 03/20/24 08:00 Pulse Ox 92 03/20/24 08:00 O2 Del Method Nasal Cannula 03/20/24 08:00 O2 Flow Rate 3 03/20/24 08:00 BMI result Body Mass Index 28.3 Awake. Comfortable. Neck is supple. Mucosa moist. Lungs bilateral scattered rhonchi. Heart S1-S2 heard no gallop. Abdomen soft. Extremities no edema. No involuntary movements. No myoclonus. Results Lab Results 03/20/24 05:49 03/20/24 05:49 Lab results: Chemistry 03/19/24 03/20/24 12:10 05:49 Sodium 142 138 Potassium 5.2 H D 5.9 H Carbon Dioxide 31 H 22 BUN 48 H 61 H Creatinine 7.97 H* 9.24 H* Calcium 8.9 9.0 Hematology 03/19/24 03/20/24 12:10 05:49 WBC 13.6 H 17.7 H Hgb 11.2 L 10.4 L Plt Count 351 D 272 Assessment and Plan (1) ESRD on dialysis: Status: Chronic Plan No signs or symptoms of uremia. Fluid status seems acceptable. I will arrange for hemodialysis today. Mild hyperkalemia Keep on low-potassium diet. We will use low-potassium bath during dialysis. Mild anemia we will watch and start him on Epogen as indicated. Upon discharge he will go back to [place] see dialysis clinic and follow up with Dr. Santana. Procedures Date of Service Date of Service: 03/20/24
[2024-03-20 14:22] VITALS: O2SAT 93
[2024-03-20 16:06] VITALS: BP 165/74; RESP 18; TEMP 36.7; O2SAT 92
[2024-03-20 16:15] LABS: Glucose, Whole Blood 161 mg/dL (60-115)
[2024-03-20 19:27] LABS: Glucose, Whole Blood 125 mg/dL (60-115)
[2024-03-20 19:47] VITALS: BP 147/75; PULSE 94; RESP 18; TEMP 36.5
[2024-03-20 20:32] LABS: Glucose, Whole Blood 135 mg/dL (60-115)
[2024-03-20] MEDS: oxyCODONE HCl ER 10 MG TAB.ER.12H PO (21:34)
[2024-03-20 23:50] VITALS: BP 140/63; PULSE 95; RESP 18; TEMP 36.9; O2SAT 98
[2024-03-21] MEDS: oxyCODONE HCl Immed Release 5 MG TABLET PO ×4 (00:04→14:15)
[2024-03-21] MEDS: Melatonin 3 MG TABLET 6 MG PO (00:05)
[2024-03-21 03:47] VITALS: BP 167/79; PULSE 85; RESP 18; TEMP 36.7; O2SAT 94
[2024-03-21] MEDS: Heparin Sodium,Porcine 5,000 UNIT/ML VIAL 5000 UNIT SUBCUT ×3 (06:32→23:13)
[2024-03-21 07:25] VITALS: BP 135/66; PULSE 90; RESP 16; TEMP 36.8; O2SAT 98
[2024-03-21 07:27] LABS: Glucose, Whole Blood 95 mg/dL (60-115)
[2024-03-21] MEDS: oxyCODONE HCl ER 10 MG TAB.ER.12H PO ×2 (08:22→21:04)
[2024-03-21] MEDS: 0.9 % Sodium Chloride Flush 3 ML SYRINGE IVFLUSH ×3 (08:23→23:14)
--- NOTE | 2024-03-21 09:37 | P.DS_ITS ---
DS: Providers Provider Date of Service: 03/21/24 Date of admission: 03/19/24 11:53 Date of discharge: 03/21/24 Primary care physician: Shayla Augustine NP Consults: 03/19/24 14:08 Consult to Hospitalist Routine Comment: Consulting Provider: [facility] [place] Hospitalists Reason For Exam: s/p tma 03/19/24 17:19 Consult to Nephrology Routine Consulting Provider: Osvaldo Friedman Reason for consultation: ESRD on dialysis DS: Diagnosis Discharge Diagnosis (1) ESRD on dialysis: Status: Chronic DS: Summary Hospital Course Hospital Course: Beau is post op day 2 s/p right TMA. He has been doing well. He has been seen by PT and OT, OT did recommend STR. The pt is only able to bear weight on his right heel at this time. He did have a dialysis treatment yesterday. He is eating and drinking well and has been sleeping well. His pain has been controlled. We took the dressings down this morning; the pt has not been keeping the Javy bandage on. The TMA site is C/D/I. There is no bleeding or discharge noted. We will have him continue to bear weight only on the right heel. We have sent in a prescription for Oxycodone 5mg tid prn. We will have him follow up in the office in 2 weeks. He currently has VNA services at home that will continue. We have ordered a Darco shoe to assist in ambulation at home. Time Attestation Discharge Coordination Time (in mins): 45 Quality: Safe Use of Opioids Does Pt have an Active Cancer Diagnosis on the Problem List?: No Quality: Stroke Does the patient have a stroke diagnosis?: No Physical Exam Vital Signs: Vital Signs: Last Vital Signs Temp 98.2 F 03/21/24 07:25 Pulse 90 03/21/24 07:25 Resp 16 03/21/24 07:25 BP 135/66 03/21/24 07:25 Pulse Ox 98 03/21/24 07:25 O2 Del Method Room Air 03/21/24 07:25 O2 Flow Rate 3 03/21/24 03:47 Oxygen Flow Rate 2 03/20/24 14:22 BMI result Body Mass Index 28.3 Const: General: comfortable and no acute distress Orientation/consciousness: patient oriented x3 HEENT: Ears: hearing grossly normal bilaterally Resp: Effort & Inspection: normal respiratory effort and able to speak in complete sentences Auscultation: clear to auscultation bilaterally Cardio: Rate: regular rate Rhythm: regular rhythm Heart sounds: S1 normal heart sound present and S2 normal heart sound present Bruits: no abdominal aortic bruits, no carotid bruits, no femoral bruits and no renal bruits GI: Palpation (GI): No Abdominal aortic bruit present Neuro: General: patient oriented x3 Cranial nerves: Yes CN's II-XII intact bilaterally Extrem: Other: Right TMA site: C/D/I after taking dressings down. No bleeding or discharge noted. DS: Data Data Completed and Pending Completed studies during hospitalization [Text1]: Procedures Drainage of Right Pleural Cavity with Drainage Device, Percutaneous Approach (11/28/23) Drainage of Right Pleural Cavity, Percutaneous Approach (04/10/23) Introduction of Other Therapeutic Substance into Pleural Cavity, Percutaneous Approach (09/30/23) Introduction of Other Thrombolytic into Pleural Cavity, Percutaneous Approach (09/30/23) Performance of Urinary Filtration, Intermittent, Less than 6 Hours Per Day (02/02/24) Pending studies at discharge: Pending at discharge 03/19/24 13:43 Surgical [PTH] Routine Labs on day of discharge: Laboratory Results - last 24 hr 03/20/24 03/20/24 03/20/24 11:15 16:08 19:20 POC Glucose 134 H 161 H 125 H 03/20/24 03/21/24 20:19 07:02 POC Glucose 135 H 95 Discharge Plan Discharge Anticipated Discharge Date/Time: 03/21/24 10:03 Patient Disposition: Home Health Service Discharge Diagnosis: s/p right TMA Referrals: Shayla Augustine NP [Primary Care Provider] - 1 Week Discharge Medications: New oxycodone 5 mg tablet 5 mg PO TID PRN (Reason: pain) Qty: 20 0RF Rx Instructions: Partial Fill upon patient request. Continued (DME) PleurX catheter drainage kits 1000cc kits See Rx Instructions .Route .MEDSUPPLY Qty: 10 6RF Rx Instructions: As directed atorvastatin 40 mg tablet 40 mg PO DAILY ipratropium-albuterol 0.5 mg-3 mg(2.5 mg base)/3 mL solution for nebulization 3 ml INHALATION QID PRN (Reason: Wheezing) sennosides-docusate sodium [Senna-Time S] 8.6-50 mg tablet 1 tab PO DAILY PRN (Reason: Constipation) allopurinol 100 mg tablet 100 mg PO MOWEFR@1600 Rx Instructions: GIVE AFTER DIALYSIS furosemide 80 mg tablet 80 mg PO DAILY omeprazole 20 mg capsule,delayed release(DR/EC) 20 mg PO DAILY@0630 doxazosin 4 mg tablet 4 mg PO BEDTIME albuterol sulfate 90 mcg/actuation HFA aerosol inhaler 2 puff INHALATION Q4H PRN (Reason: Shortness Of Breath) carvedilol 6.25 mg Tablet 6.25 mg PO BID Qty: 60 0RF Protocol: Hold for SBP/HR < HOLD for SBP < : 90 HOLD for HR < : 60 losartan 25 mg Tablet 25 mg PO DAILY Qty: 90 0RF Protocol: Hold for SBP< HOLD for SBP < : 90 fluticasone propionate 50 mcg/actuation Roland,Suspension 1 spray intranasal BID Qty: 16 0RF Velphoro 500 mg tablet,chewable 500 mg PO TID Trelegy Ellipta 200-62.5-25 mcg blister with device 1 ea INHALATION DAILY hydralazine 25 mg tablet 25 mg PO TID oxycodone 5 mg tablet 2.5 - 5 mg PO Q6H PRN (Reason: pain) insulin lispro 100 unit/mL insulin pen 1 sliding scale dose subcut TIDAC insulin glargine [Lantus Solostar U-100 Insulin] 100 unit/mL (3 mL) insulin pen 22 unit subcut BEDTIME aspirin 81 mg tablet,delayed release (DR/EC) 81 mg PO DAILY pregabalin 75 mg capsule 75 mg PO DAILY Discharge Orders: Discharge Order (Routine); Ordered 03/21/24 Ordered By: Amarilis Mcdaniels Activity on Discharge: As tolerated Stand Alone Forms: Patient Portal Discharge page Print Language: Bulgarian Care Plan Goals: Keep site clean and dry. Heel touch only. Health Concerns: ESRF, DM Plan of Treatment: Heel touch only. Keep DM under control. Continue with MWF dialysis. Follow up in office in 2 weeks. Assessment: s/p right TMA
[2024-03-21 11:11] LABS: Glucose, Whole Blood 269 mg/dL (60-115)
[2024-03-21] MEDS: Insulin Lispro 100 UNIT/ML 3 ML VIAL SUBCUT ×2 (11:11→21:04)
[2024-03-21 11:32] VITALS: BP 146/77; PULSE 69; RESP 16; TEMP 37; O2SAT 94
--- NOTE | 2024-03-21 11:33 | MHC.CM.PN ---
Addendum entered by Desire Ye 03/21/24 13:16: PT AND SON HAVE ACCEPTED A BED OFFER FROM [facility] PT WILL TRANSPORT VIA BLS PENDING INSURANCE AUTH Original Note: CM MET WITH PT AND SON TO DISCUSS DC PLANNING THEY WOULD LIKE PT TO GOT O STR WHICH WAS RECOMMENDED BY PHYSICAL THERAPY SON SAYS HE CAN TRANSPORT PT TO HD IF NEEDED, HE REQUESTS REFERRALS NEAR HIS HOME/PTS HD CENTER, IN [place] REFERRALS MADE
--- NOTE | 2024-03-21 12:41 | PM.PNNEP ---
Subjective Subjective Date of Service: 03/21/24 Interval history: At dialysis yesterday. Physical Exam Vital Signs: Vital Signs: Last Vital Signs Temp 98.6 F 03/21/24 11:32 Pulse 69 03/21/24 11:32 Resp 16 03/21/24 11:32 BP 146/77 H 03/21/24 11:32 Pulse Ox 94 03/21/24 11:32 O2 Del Method Nasal Cannula 03/21/24 11:32 O2 Flow Rate 3 03/21/24 11:32 Oxygen Flow Rate 2 03/20/24 14:22 BMI result Body Mass Index 28.3 Const: General: comfortable and no acute distress Orientation/consciousness: patient oriented x3 Limitations: No language barrier HEENT: Ears: hearing grossly normal bilaterally Resp: Effort & Inspection: normal respiratory effort and able to speak in complete sentences Auscultation: clear to auscultation bilaterally Cardio: Rate: regular rate Rhythm: regular rhythm Heart sounds: S1 normal heart sound present and S2 normal heart sound present Bruits: no abdominal aortic bruits, no carotid bruits, no femoral bruits and no renal bruits GI: Palpation (GI): No Abdominal aortic bruit present Neuro: General: patient oriented x3 Cranial nerves: Yes CN's II-XII intact bilaterally Extrem: Other: Right TMA site: C/D/I after taking dressings down. No bleeding or discharge noted. Objective Data Labs 03/20/24 05:49 03/20/24 05:49 Labs: Laboratory Results - last 24 hr 03/20/24 03/20/24 03/20/24 16:08 19:20 20:19 POC Glucose 161 H 125 H 135 H 03/21/24 03/21/24 07:02 11:00 POC Glucose 95 269 H Procedures Date of Service Date of Service: 03/21/24 Assessment & Plan Assessment and plan (1) ESRD on dialysis: Status: Chronic Plan No signs or symptoms of uremia. Fluid status seems acceptable. Dialysis again tomorrow per schedule Mild hyperkalemia Keep on low-potassium diet. 1 dose of Lokelma today Mild anemia we will watch and start him on Epogen as indicated. Upon discharge he will go back to [facility] dialysis clinic and follow up with Dr. Santana. Time Spent With Patient Time: Total time managing care of this patient today ____ minutes. Progress Note: Quality Stroke Does the patient have a stroke diagnosis?: No
[2024-03-21] MEDS: Sodium Zirconium Cyclosilicate 10 GM POWD.PACK PO (14:16)
[2024-03-21 14:56] VITALS: BP 148/76; PULSE 79; RESP 18; TEMP 37; O2SAT 99
[2024-03-21 16:40] LABS: Glucose, Whole Blood 111 mg/dL (60-115)
[2024-03-21 19:09] VITALS: BP 150/63; PULSE 96; RESP 18; TEMP 36.6; O2SAT 98
[2024-03-21 20:32] LABS: Glucose, Whole Blood 178 mg/dL (60-115)
[2024-03-21 23:51] VITALS: BP 152/73; PULSE 73; RESP 16; TEMP 36; O2SAT 99
[2024-03-22 03:21] VITALS: BP 124/77; PULSE 81; RESP 18; TEMP 36; O2SAT 99
[2024-03-22] MEDS: Heparin Sodium,Porcine 5,000 UNIT/ML VIAL 5000 UNIT SUBCUT (06:33)
[2024-03-22 07:11] VITALS: BP 140/65; PULSE 89; RESP 18; TEMP 36.6; O2SAT 96
[2024-03-22] MEDS: oxyCODONE HCl ER 10 MG TAB.ER.12H PO (07:13)
[2024-03-22] MEDS: oxyCODONE HCl Immed Release 5 MG TABLET PO ×2 (07:13→11:08)
[2024-03-22] MEDS: 0.9 % Sodium Chloride Flush 3 ML SYRINGE IVFLUSH (07:14)
[2024-03-22 07:41] LABS: Glucose, Whole Blood 79 mg/dL (60-115)
--- NOTE | 2024-03-22 10:53 | MHC.CM.PN ---
pt to be dcd today [facility]
[2024-03-22 11:33] LABS: Glucose, Whole Blood 116 mg/dL (60-115)
[2024-03-22 13:19] VITALS: BP 155/63; PULSE 88; RESP 16; TEMP 37; O2SAT 97
[2024-03-22 15:15] VITALS: BP 152/78; PULSE 87; RESP 18; TEMP 37.1; O2SAT 98
== END 2024-03-22 15:51 | disposition skilled nursing facility (03) | DRG 255 ==
LOC: HO.SSSA 11:55 → HO.S3 14:46
PROVIDERS: Nurse Practitioner; Surgery Vascular Surgery; Admitting Provider Physician Assistant Surgical; PCP Nurse Practitioner; Visit Provider Physician Assistant Surgical
PROC: 0Y6P0Z0 Detachment at Right 1st Toe, Complete, Open Approach (ICD-10-PCS; CPT 28805; principal; 2024-03-19 13:00)
DX: E11.52 Type 2 diabetes mellitus with diabetic peripheral angiopathy with gangrene (principal); I50.23 Acute on chronic systolic (congestive) heart failure; N18.6 End stage renal disease; I13.2 Hypertensive heart and chronic kidney disease with heart failure and with stage 5 chronic kidney disease, or end stage renal disease; D63.1 Anemia in chronic kidney disease; E11.22 Type 2 diabetes mellitus with diabetic chronic kidney disease; E87.5 Hyperkalemia; Z99.2 Dependence on renal dialysis; Z87.891 Personal history of nicotine dependence; Z79.4 Long term (current) use of insulin; Z79.51 Long term (current) use of inhaled steroids; Z79.82 Long term (current) use of aspirin; Z79.899 Other long term (current) drug therapy
CPT/HCPCS: 28805; 36415; 80048; 82947; 85025; 85027; 85610; 85730; 88305; 88311; 90999; 97162; 97166; 99221; J0131; J0690; J1171; J1644; J2003; J2270; J2371; J2704; J2795; J3010

== ENCOUNTER → 2024-03-19 11:53 | Outpatient (BNV) | payer MEDICARE, MEDICAID, SELFPAY | PROVIDERS: Admitting Provider Physician Assistant Surgical; PCP Nurse Practitioner; Visit Provider Surgery Vascular Surgery | DX: N18.6 End stage renal disease (principal); Z99.2 Dependence on renal dialysis | CPT/HCPCS: 28805; 99024 ==

== ENCOUNTER → 2024-03-19 11:53 | Outpatient (BNV) | payer MEDICARE, MEDICAID, SELFPAY | PROVIDERS: Admitting Provider Physician Assistant Surgical; PCP Nurse Practitioner; Visit Provider Nurse Practitioner Acute Care | DX: I12.0 Hypertensive chronic kidney disease with stage 5 chronic kidney disease or end stage renal disease (principal); E11.22 Type 2 diabetes mellitus with diabetic chronic kidney disease; N18.6 End stage renal disease; Z99.2 Dependence on renal dialysis | CPT/HCPCS: 99222 ==

== ENCOUNTER → 2024-03-19 11:53 | Outpatient (BNV) | payer MEDICARE, MEDICAID, SELFPAY | PROVIDERS: Admitting Provider Physician Assistant Surgical; PCP Nurse Practitioner; Visit Provider Internal Medicine Hypertension Specialist | DX: N18.6 End stage renal disease (principal); Z99.2 Dependence on renal dialysis | CPT/HCPCS: 90935 ==

== ENCOUNTER 2024-04-05 10:10 | Inpatient (IN) | payer MEDICARE, MEDICAID, SELFPAY ==
--- NOTE | ~2024-04-05 | CT_ITS ---
EXAMINATION: CT HEAD WITHOUT CONTRAST CLINICAL INFORMATION: Right upper extremity weakness. COMPARISON: 03/07/24. 11/24/2023. MRI brain 12/05/2023. TECHNIQUE: Contiguous axial imaging was performed from the skull base to vertex without intravenous administration of contrast. This CT examination was performed using dose optimization techniques as appropriate, variously including the following: *Automated exposure control *Adjustment of mA and/or kV according to patient size (this includes techniques or standardized protocols for targeted exams where dose is matched to indication/reason for exam; i.e. extremities or head) *Use of iterative reconstruction technique FINDINGS: There is mild motion degradation. There is no evidence of intracranial hemorrhage or extra-axial fluid collection. There is no mass effect, or edema. No CT evidence of acute territorial infarct. Ventricles, sulci, and cisterns are normal in size and configuration for patient age. No hydrocephalus. No midline shift. Negative hyperdense MCA sign. Negative insular ribbon sign. Hypodensity in the left cerebellar hemisphere is felt to be related to skull base/motion artifact. Mild to moderate white matter hypodensities in the tentorial region, with small vessel ischemic changes. 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 Atheromatous calcification of the bilateral carotid siphons and V4 segments vertebral arteries bilaterally. Globes and orbital contents image normally. Right lens replacement. Extracranial soft tissues demonstrate extensive atheromatous calcification of the external ICA branches. The paranasal sinuses are normally aerated. There is a left mastoid effusion with involvement of the left middle ear cavity (hypotympanum). No suspicious bony abnormalities. Severe degenerative changes right greater than left TM joints. CT/CT head/brain wo IV con IMPRESSION: 1. No acute intracranial abnormalities. Chronic changes as discussed. 2. Hypodensity in the left cerebellar hemisphere, felt to represent skull base and motion artifact. 3. Left mastoid effusion extending into the left middle ear cavity. Electronically signed by: Morro Van MD 04/10/2024 01:39 PM [facility]
--- NOTE | ~2024-04-05 | XR_ITS ---
EXAMINATION: XR CHEST 1 VIEW HISTORY: aspirational pneumonitis COMPARISON: Comparison is made with the prior examination dated 01/24/2024. FINDINGS: A single AP portable view of the chest performed at 11:16 AM is submitted. A right-sided dual-lumen catheter is unchanged in position. Again seen is partial opacification of the right lung base which may represent atelectasis, pneumonia, and/or pleural fluid. The left lung is clear. There is no pneumothorax or pulmonary vascular congestion. The heart is enlarged. A left axilla subclavian stent is again noted. The bones are intact. XR/XR chest 1V IMPRESSION: Cardiomegaly. Partial opacification of the right lung base which may represent atelectasis, pneumonia, and/or pleural fluid. Electronically signed by: Mj Hager MD 04/16/2024 11:37 AM [place]
--- NOTE | ~2024-04-05 | CT_ITS ---
EXAMINATION: CT HEAD WITHOUT CONTRAST CLINICAL INFORMATION: Encephalopathy. COMPARISON: 04/10/24. TECHNIQUE: Contiguous axial imaging was performed from the skull base to vertex without intravenous administration of contrast. This CT examination was performed using dose optimization techniques as appropriate, variously including the following: *Automated exposure control *Adjustment of mA and/or kV according to patient size (this includes techniques or standardized protocols for targeted exams where dose is matched to indication/reason for exam; i.e. extremities or head) *Use of iterative reconstruction technique FINDINGS: There is no evidence of intracranial hemorrhage or extra-axial fluid collection. There is no mass effect, or edema. No CT evidence of acute territorial infarct. Ventricles, sulci, and cisterns are normal in size and configuration for patient age. No hydrocephalus. No midline shift. Negative hyperdense MCA sign. Negative insular ribbon sign. Hypodensity in the left cerebellar hemisphere is no longer evident and was artifactual. Mild to moderate white matter hypodensities in the tentorial region, in keeping with small vessel ischemic changes. 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 Atheromatous calcification of the bilateral carotid siphons and V4 segments vertebral arteries bilaterally. Globes and orbital contents image normally. Right lens replacement. Extracranial soft tissues demonstrate extensive atheromatous calcification of the external ICA branches. The paranasal sinuses are normally aerated. There is a left mastoid effusion with involvement of the left middle ear cavity (hypotympanum). No suspicious bony abnormalities. Severe degenerative changes right greater than left TM joints. CT/CT head/brain wo IV con IMPRESSION: 1. No evidence of intracranial hemorrhage, mass effect, edema, or evolving infarction. Chronic changes as discussed. No significant interval changes from 04/10/2024. 2. Hypodensity in the left cerebellar hemisphere is no longer evident and was artifactual. 3. Left mastoid effusion extending into the left middle ear cavity, unchanged. Electronically signed by: Morro Van MD 04/15/2024 10:11 AM [facility]
--- NOTE | ~2024-04-05 | XR_ITS ---
EXAMINATION: XR FOOT 3 OR MORE VIEWS RIGHT HISTORY: Status post amputation, R/O osteomyelitis COMPARISON: Comparison is made with the prior examination dated 02/02/2024. FINDINGS: Three views of the right foot are submitted. Osseous mineralization is normal. In the interval since the prior study, the patient is status post transmetatarsal amputation at the level of the metatarsal bases. No lytic destruction is seen. The joint spaces of the hindfoot are preserved. There are vascular calcifications. XR/XR foot RT min 3V IMPRESSION: Status post transmetatarsal amputation. No plain film evidence of osteomyelitis. If this remains a clinical concern, three-phase bone scan or MRI could be performed. Electronically signed by: Mj Hager MD 04/05/2024 11:04 AM [facility]
[2024-04-05 10:37] VITALS: PULSE 91; RESP 18; TEMP 37.1; O2SAT 92; BMI 29.2
--- NOTE | 2024-04-05 10:44 | ED_ITS ---
HPI - General Adult General Chief complaint: Wound/Laceration Stated complaint: Wound pain recent surgery Time Seen by Provider: 04/05/24 12:17 Source: patient, family, RN notes reviewed and old records reviewed History of Present Illness ED Provider: Erika Whitaker PA-C HPI narrative: 68-year-old male with a past medical history ESRD on HD (M/W/F) last dialyzed MANAGER SPA, DM, PVD, CHF, HTN, HLD, chronically on 2L home O2, GERD, ROBERT on CPAP, s/p right TMA by Dr. Cannon on 03/19/24, presenting to the ED complaining of right foot wound dehiscence, color change, pus/bloody drainage x 4 days. Son, FLEET ADMINISTRATIVE ASSISTANT, very concerned about patient's care at facility. States patient is currently on antibiotics. Patient reports increasing pain with inability to sleep. Denies known injury or fall. Related Data Home Medications ?Medication ?Instructions ?Recorded ?Confirmed albuterol sulfate 90 mcg/actuation 2 puff inhalation Q4H PRN 04/19/22 03/19/24 aerosol inhaler Shortness Of Breath allopurinol 100 mg tablet 100 mg PO MOWEFR@1600 04/19/22 03/19/24 atorvastatin 40 mg tablet 40 mg PO DAILY 04/19/22 03/19/24 doxazosin 4 mg tablet 4 mg PO BEDTIME 04/19/22 03/19/24 furosemide 80 mg tablet 80 mg PO DAILY 04/19/22 03/19/24 ipratropium 0.5 mg-albuterol 3 mg 3 ml inhalation QID PRN Wheezing 04/19/22 03/19/24 (2.5 mg base)/3 mL nebulization soln omeprazole 20 mg capsule,delayed 20 mg PO DAILY@0630 04/19/22 03/19/24 release sennosides 8.6 mg-docusate sodium 1 tab PO DAILY PRN Constipation 04/19/22 03/19/24 50 mg tablet (Senna-Time S) insulin glargine 100 unit/mL (3 22 unit subcut BEDTIME 04/10/23 03/19/24 mL) subcutaneous pen (Lantus Solostar U-100 Insulin) insulin lispro 100 unit/mL 1 sliding scale dose subcut TIDAC 04/10/23 03/19/24 subcutaneous pen aspirin 81 mg tablet,delayed 81 mg PO DAILY 06/20/23 03/19/24 release pregabalin 75 mg capsule 75 mg PO DAILY 06/20/23 03/19/24 fluticasone fur. 200 mcg-umeclid 1 ea inhalation DAILY 01/24/24 03/19/24 62.5 mcg-vilant 25 mcg inhalat.powder (Trelegy Ellipta) hydralazine 25 mg tablet 25 mg PO TID 01/24/24 03/19/24 sucroferric oxyhydroxide 500 mg 500 mg PO TID 01/24/24 03/19/24 chewable tablet (Velphoro) oxycodone 5 mg tablet 2.5 - 5 mg PO Q6H PRN pain 03/19/24 03/19/24 Previous Rx's ?Medication ?Instructions ?Recorded carvedilol 6.25 mg tablet 6.25 mg PO BID #60 tabs 10/03/23 losartan 25 mg tablet 25 mg PO DAILY #90 tabs 10/03/23 PleurX catheter drainage kits #10 ea 10/17/23 fluticasone propionate 50 1 spray intranasal BID #16 grams 12/07/23 mcg/actuation nasal spray,suspension oxycodone 5 mg tablet 5 mg PO TID PRN pain #7 tabs 03/22/24 Allergies Allergy/AdvReac Type Severity Reaction Status Date / Time Iodinated Contrast Media Allergy Facial Verified 04/05/24 10:44 [Contrast Dye] Swelling Review of Systems 2 Review of Systems: Yes all other systems are reviewed and are negative Constitutional: Constitutional: Reports as per [facility] Past Medical History Attestation statement: The following information was validated with the patient. 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 CHF (congestive heart failure) ESRD on dialysis Acute on chronic systolic and diastolic heart failure, NYHA class 3 HFrEF (heart failure with reduced ejection fraction) ESRD (end stage renal disease) Anemia ESRD (end stage renal disease) Chronic pericardial effusion Arthritis Asthma Restless leg syndrome Occlusive thrombus Pulmonary edema ROBERT (obstructive sleep apnea) Type 2 diabetes mellitus Hyperlipidemia Hypertension A-V fistula Falling Surgical History Recurrent pleural effusion Pleural effusion on right (07/13/23) History of surgery H/O colonoscopy Family History Family History Father No problems noted. Mother No problems noted. Social History Social History Household Members: Children Household Members Other:: son Housing: House Do you presently have visiting nurse or other home services: Yes (FLEET ADMINISTRATIVE ASSISTANT daily) Alcohol intake: never Comment: counts correct Patient Tobacco Use Status: Former Tobacco user Tobacco use type: Cigarette Second Hand Smoke Exposure: No Advance Directives Date on File: 10/04/23 service: No Physical Exam ED Vital Signs: Vital Signs - 24 hr 04/05/24 10:37 04/05/24 12:00 Temperature 98.8 F Pulse Rate 91 72 Respiratory Rate 18 18 Blood Pressure 162/79 H Pulse Oximetry 92 98 Oxygen Delivery Method Nasal Cannula Room Air BMI result Body Mass Index 29.2 Const General: cooperative, healthy appearing and no acute distress Orientation/consciousness: patient oriented x3 Limitations: no limitations HENMT Head: Yes normal to inspection and Yes atraumatic Ears: hearing grossly normal bilaterally General nose exam: Normal external nose present Face and sinus: Yes normal facial exam Eyes General: appearance normal, both eyes and all related structures EOM: EOMs intact bilaterally Neck Neck: Yes normal visual inspection and Yes no meningeal signs Resp Effort & Inspection: normal respiratory effort and no respiratory distress Cardio Rate: regular rate Skin Rashes: no rashes Neuro General: patient oriented x3, tone normal and no meningeal signs Cranial nerves: Yes CN's II-XII intact bilaterally Extrem Other: Please refer to images above. Right foot TMA with wound dehiscence, necrosis, bloody drainage. Tender to palpation Course Course Course Narrative: Dialysis patient dialyzed this morning status post right toe amputation 3 weeks ago complains of increasing pain in right foot X-ray and labs ordered This is rapid medical exam done in triage pending full evaluation exam and disposition by ER provider -[id number]--leukocytosis of 26.9. Acute on chronic anemia. Chronic CKD, patient had dialysis MANAGER SPA XR foot RT min 3V IMPRESSION: Status post transmetatarsal amputation. No plain film evidence of osteomyelitis. If this remains a clinical concern, three-phase bone scan or MRI could be performed. > case discussed with Dr. Cannon recommended admission for IV antibiotics. 1257- Case discussed with hospitalist Dr. Rai Medications Administered Generic Name Dose Route Start Last Admin Trade Name Veena PRN Reason Stop Dose Admin Piperacillin Sod/Tazobactam 100 mls @ 200 mls/hr 04/05/24 12:31 04/05/24 12:48 Sod 4.5 gm/ Sodium Chloride IV 04/05/24 13:00 200 mls/hr ONCE ONE Administration Medical Decision Making Medical Decision Making MDM Narrative: 68-year-old male with a past medical history ESRD on HD (M/W/F) last dialyzed MANAGER SPA, DM, PVD, CHF, HTN, HLD, chronically on 2L home O2, GERD, ROBERT on CPAP, s/p right TMA by Dr. Cannon on 03/19/24, presenting to the ED complaining of right foot wound dehiscence, color change, pus/bloody drainage x 4 days. On exam vital signs stable, NAD, nontoxic appearing, physical exam as noted above. Please refer to images. Concern for wound dehiscence/necrosis and infection/cellulitis. Concern for osteomyelitis. No evidence of drainable abscess/collection at this time Plan: Labs, x-ray, blood cultures, empiric IV antibiotics, consult vascular Dr. Cannon, anticipated admission Please refer to course for remaining clinical decision making, interpretation of labs/imaging results, and discussions with consultants and/or family members. Differential Diagnosis Differential Diagnoses: The differential diagnosis associated with the presentation includes As above Admission/Observation Consideration of admission/observation: Escalation of care including admission/observation considered Consult Healthcare Provider Management of the patient was discussed with: Hospitalist and Tax Investigator Lab Data [facility] Lab Attestation statement: I reviewed the patient's lab results. 04/05/24 11:14 04/05/24 11:14 Labs: Lab Results 04/05/24 Range/Units 11:14 WBC 26.9 H (4.8-10.8) X10*3/uL RBC 4.16 L (4.60-5.80) X10*6/uL Hgb 9.6 L (14.0-18.0) g/dl Hct 31.0 L (42.0-52.0) % MCV 74.5 L (80.0-98.0) fL MCH 23.1 L (27.0-33.0) pg MCHC 31.0 (31.0-36.0) g/dl RDW 16.4 H (11.0-16.0) % Plt Count 291 (160-400) X10*3/uL MPV 10.6 (9.4-12.4) fL Immature Gran % (Auto) 0.7 H (0.0-0.4) % Neut % (Auto) 90.3 H (45-73) % Lymph % (Auto) 3.1 L (20-40) % [place]affee % (Auto) 5.3 (2-11) % Eos % (Auto) 0.4 (0-4) % Baso % (Auto) 0.2 (0-2) % Lymph # (Auto) 0.8 L (1.2-4.9) X10*3/uL [place] # (Auto) 1.4 H (0.1-1.2) X10*3/uL Eos # (Auto) 0.1 (0.0-0.4) X10*3/uL Baso # (Auto) 0.1 (0.0-0.2) X10*3/uL Abs Immat Gran (auto) 0.19 H (0.00-0.03) X10*3/uL Absolute Neuts (auto) 24.2 H (2.0-8.3) x10*3/uL Absolute Nucleated RBC 0.000 (0.0-0.012) X10*3/uL Nucleated RBC % (auto) 0.0 (0.0-0.2) /100WBC Smear Tech's Comments VERIFIED PT 14.8 H (10.9-12.4) SEC INR 1.3 H (0.9-1.1) Sodium 142 (135-145) mmol/L Potassium 4.1 D (3.3-5.1) mmol/L Chloride 98 (96-108) mmol/L Carbon Dioxide 31 H (22-29) mmol/L Anion Gap 17 (12-20) BUN 24 H (9-16) mg/dL Creatinine 3.79 H (0.5-1.4) mg/dL Estim Creat Clear Calc 17.7 Estimated GFR 16 Random Glucose 188 H (60-115) mg/dL Lactic Acid 0.8 (0.5-2.0) mmol/L Calcium 8.8 (8.4-10.2) mg/dL Independent Interpretation I performed an independent interpretation of an: Plain X-Ray Radiology Impression Discussion of test interpretation with radiology: I have reviewed the radiologist's reading. Independent Historian Clinical information obtained from an independent historian. History obtained from or confirmed by: Other (Son) External Record Review External record reviewed: Inpatient record, Office record, Outpatient record, Prior outpatient labs, Prior outpatient radiology, Primary care record and Outside ED record Tests considered The following testing was considered but not selected: As above Prescription Management I considered prescription management with: Pain Medication and Antibiotic Chronic Conditions Patient?s care impacted by: Diabetes, Hypertension and Other (ESRD on HD) Social Determinants Patient?s care significantly limited by Social Determinants of Health including: Other Social Determinant of Health Critical Care Time Critical Care Time Critical Care Time: Yes Total Critical Care Time: 40 Attestation: I have personally provided critical care time exclusive of time spent on separately billable procedures. Time includes review of lab data, radiology results, discussion with consultants, and monitoring for potential decompensation. Intervention performed as documented. Discharge Plan Discharge Clinical Impression: Cellulitis of right foot, Dehiscence of wound Patient Disposition: Admitted As Inpatient Print Language: Luxembourgish
[2024-04-05 11:22] LABS: Basophils Absolute Auto 0.1 X10*3/uL (0.0-0.2); Basophils Percent Auto 0.2 % (0-2); Eosinophils Absolute Auto 0.1 X10*3/uL (0.0-0.4); Eosinophils Percent Auto 0.4 % (0-4); Hemoglobin 9.6 g/dl (14.0-18.0); Imm Gran Abs Auto 0.19 X10*3/uL (0.00-0.03); Imm Gran Pct Auto 0.7 % (0.0-0.4); Lymphocytes Absolute Auto 0.8 X10*3/uL (1.2-4.9); Lymphocytes Percent Auto 3.1 % (20-40); MANUAL DIFF FLAG SCAN; Mean Corpuscular Hemoglobin 23.1 pg (27.0-33.0); Mean Corpuscular Volume 74.5 fL (80.0-98.0); Mean Platelet Volume 10.6 fL (9.4-12.4); Monocytes Absolute Auto 1.4 X10*3/uL (0.1-1.2); Monocytes Percent Auto 5.3 % (2-11); Neutrophils Absolute Auto 24.2 x10*3/uL (2.0-8.3); Neutrophils Percent Auto 90.3 % (45-73); Platelet Count 291 X10*3/uL (160-400); Red Blood Count 4.16 X10*6/uL (4.60-5.80); Red Cell Distribution Width 16.4 % (11.0-16.0); SCAN SMEAR FLAG 1; White Blood Count 26.9 X10*3/uL (4.8-10.8)
[2024-04-05 11:28] LABS: INTERNATIONAL NORM RATIO 1.3 (0.9-1.1); Prothrombin Time 14.8 SEC (10.9-12.4)
[2024-04-05 11:37] LABS: Anion Gap 17 (12-20); Blood Urea Nitrogen 24 mg/dL (9-16); Calcium 8.8 mg/dL (8.4-10.2); Carbon Dioxide 31 mmol/L (22-29); Chloride 98 mmol/L (96-108); Creatinine Clr Calc Pharmacy 17.7; Estimated Glomerular Filt Rate 16; Glucose Random 188 mg/dL (60-115); Potassium 4.1 mmol/L (3.3-5.1); Sodium 142 mmol/L (135-145)
[2024-04-05 11:39] LABS: Lactic Acid 0.8 mmol/L (0.5-2.0)
[2024-04-05 11:40] LABS: SLIDE REVIEW VERIFIED
[2024-04-05 12:00] VITALS: BP 162/79; PULSE 72; RESP 18; O2SAT 98
[2024-04-05] MEDS: Piperacillin Sodium/Tazobactam 4.5 GM in 0.9 % Sodium Chloride 100 ML IV (12:48)
--- OUTSIDE RECORDS SUMMARY | 2024-04-05 13:03 | XMS_ITS | Encounter Summary ---
Author Organization [facility] Address [address] [facility] [address] [place] [address] Phone Care Team Providers Care Trust Operations Assistant Name Role Phone Jade Lewis MD Primary Care Provider + [phone] Reason for Visit * Reason Onset Date Comments Med Refill 04/19/2022 Encounter Details Date Type Department Care Team (Late st Contact Info) Description 04/19/2022 Refill [facility] [address] [place] [id number] Loida Madsen Social History Tobacco Use Types Packs/Day Years Used Date Smoking Tobacco: Former Cigarettes Q uit: 10/27/1994 Smokeless Tobacco: Never Comments:Smoking History Inf o:Unknown Alcohol Use Standard Drinks/Week Comments Never 0 (1 standard drink = 0.6 oz pure alcohol) Alcoholic Drinks/day: Occasional social drink Sex and Gender Information Value Date Recorded Sex Assigned at Male 04/27/2023 1:12 PM EST Legal Sex Male 4:34 PM EST Gender Identity Male 04/27/2023 1:12 PM EST Sexual Orientation Not on file documented as of this encounter Plan of Treatment Not on file documented as of this encounter Visit Diagnoses Not on filedocumented in this encounter Care Teams Trust Operations Assistant Relationship Specialty Start Date End Date Jade Lewis MD [address] [place] [id number] PCP - General Internal Medicine 04/25/22 documented as of this encounter
--- OUTSIDE RECORDS SUMMARY | 2024-04-05 13:03 | XMS_ITS | Encounter Summary ---
Author Organization [facility], Address [address] [place] [address] Phone Care Team Providers Care Heat And Frost Insulator Name Role Phone Jade Lewis MD Primary Care Provider + [phone] Reason for Visit * Reason Comments Med Refill Encounter Details Date Type Department Care Team ([facility] st Contact Info) Description 06/25/2019 Refill [facility] [address] [place] [address] Mercedes Law MD Social History Tobacco Use Types Packs/Day Years Used Date Smoking Tobacco: Former Cigarettes Q uit: 10/27/1994 Comments:Smoking History Inf o:Unknown Alcohol Use Standard Drinks/Week Comments Yes 0 (1 standard drink = 0.6 oz pure alcohol) Alcoholic Drinks/day: Occasional social drink Sex and Gender Information Value Date Recorded Sex Assigned at Male 04/27/2023 1:12 PM EST Legal Sex Male 4:34 PM EST Gender Identity Male 04/27/2023 1:12 PM EST Sexual Orientation Not on file COVID-19 Exposure Response Date Recorded In the last month, have you been in contact with someone who was confirmed or suspected to have Coronavirus / COVID-19? No / Unsure 05/30/2019 10:56 AM EDT documented as of this encounter Plan of Treatment Not on file documented as of this encounter Visit Diagnoses Not on filedocumented in this encounter Care Teams Heat And Frost Insulator Relationship Specialty Start Date End Date Jade Lewis MD [address] [place], [place] [id number] PCP - General Internal Medicine 04/25/22 documented as of this encounter
--- OUTSIDE RECORDS SUMMARY | 2024-04-05 13:03 | XMS_ITS | Clinical Summary ---
Author Organization [facility] Address [address] [place] [address] Phone Care Team Providers Care American History Professor Name Role Phone Cass Turcios MD Primary Care Provider [phone] Allergies No known active allergies Medications Medication Sig Dispensed Refills Start Date End Date Status Ventolin HFA 90 mcg/actuation inhaler Inhale 2 puffs by mouth every 4 (four) hours if needed for shortness of breath. Active allopurinoL (ZYLOPRIM) 100 mg tablet Take 1 tablet (100 mg total) by mouth 3 (three) times a week. After dialysis 5 Active Marion Low Dose Aspirin 81 mg EC tablet Take 1 tablet (81 mg total) by mouth daily. 1 Active atorvastatin (LIPITOR) 40 mg tablet Take 1 tablet (40 mg total) by mouth daily. 1 Active doxazosin (CARDURA) 4 mg tablet Take 1 tablet (4 mg total) by mouth at bedtime. at bedtime 5 Active Trelegy Ellipta 200-62.5-25 mcg inhaler Inhale 1 puff (200 mcg total) by mouth 1 (one) time each day. Active furosemide (LASIX) 80 mg tablet Take 1 tablet (80 mg total) by mouth 1 (one) time each day. 4 Active hydrALAZINE (APRESOLINE) 25 mg tablet Take 1 tablet (25 mg total) by mouth 3 (three) times a day. 4 Active Lantus Solostar U-100 Insulin 100 unit/mL (3 mL) injection pen Inject 22 Units under the skin at bedtime. 4 Active insulin lispro 100 unit/mL injection Inject 2 Units under the skin 3 (three) times a day before meals. 2-10 units subcutaneously three times daily 4 Active ipratropium-al buteroL (DUONEB) 0.5-2.5 mg/3 mL nebulizer solution Take 3 mL by nebulization 4 (four) times a day if needed for wheezing or shortness of breath. 4 Active losartan (COZAAR) 25 mg tablet Take 1 tablet (25 mg total) by mouth 1 (one) time each day. Active omeprazole (PriLOSEC) [address] capsule Take 1 capsule (20 mg total) by mouth 1 (one) time each day before breakfast. 5 Active pregabalin (LYRICA) 75 mg capsule Take 1 capsule (75 mg total) by mouth 1 (one) time each day. Max Daily Amount: 75 mg 4 Active Stimulant Laxative Plus 8.6-50 mg per tablet Take 1 tablet by mouth 1 (one) time each day if needed for constipation. 4 Active acetaminophen (TYLENOL) 500 mg tablet Take 2 tablets (1,000 mg total) by mouth every 6 (six) hours if needed for mild pain for up to 10 days. 30 tablet 5 04/06/19 25 Active cefpodoxime (VANTIN) 200 mg tablet Take 1 tablet (200 mg total) by mouth 1 (one) time each day for 10 days. 10 each 5 04/06/19 25 Active predniSONE (DELTASONE) 10 mg tablet Take 2 tablets (20 mg total) by mouth 1 (one) time each day for 5 days, THEN 1 tablet (10 mg total) 1 (one) time each day for 5 days. 15 each 5 04/06/19 25 Active lidocaine 4 % patch Apply 1 patch topically 1 (one) time each day. 30 each 5 04/26/19 25 Active oxyCODONE (ROXICODONE) 5 mg immediate release tablet Take 1 tablet (5 mg total) by mouth 3 (three) times a day if needed for severe pain. Max Daily Amount: 15 mg 03/27/19 25 Discontinued(Sto p Taking at Discharge) Velphoro 500 mg chewable tablet Chew 1 tablet (500 mg total) 3 (three) times a day with meals. 03/25/19 25 Discontinued(Ent ered in Error) predniSONE (DELTASONE) 10 mg tablet Take 2 tablets (20 mg total) by mouth 1 (one) time each day for 5 days, THEN 1 tablet (10 mg total) 1 (one) time each day for 5 days. 5 03/27/19 25 Discontinued acetaminophen (TYLENOL) 500 mg tablet Take 2 tablets (1,000 mg total) by mouth every 6 (six) hours if needed for mild pain for up to 10 days. 5 03/27/19 25 Discontinued cefpodoxime (VANTIN) 200 mg tablet Take 1 tablet (200 mg total) by mouth 1 (one) time each day for 10 days. 5 03/27/19 25 Discontinued Active Problems Problem Noted Date Diagnosed Date Uremia 03/25/2024 Encounters Date Type Department Care Team Description 04/02/[address] [facility] Lab [address] [place] [id number] Cass Turcios MD End stage renal disease ([facility]) 03/25/2024 7:29 AM EST - 03/27/2024 6:55 PM EST Hospital Encounter [facility] [address] [place] [id number] Noman Conteh MD Bukalo, Nermina, MD Japaridze, Anna, MD Acute kidney injury superimposed on chronic kidney disease ([facility]) (Primary Dx); Hyperkalemia; Urinary tract infection without hematuria, site unspecified Discharge Disposition: Assisted Facility 03/25/2024 Lab Requisition [facility] Lab [address] [place] [address] Cass Turcios MD Anemia, unspecified; Chronic diastolic (congestive) heart failure ([facility]); Other pericardial effusion (noninflammatory); End stage renal disease ([facility]) from Last 3 Months Surgical History Surgery Date Site/Laterality Comments TOE AMPUTATION IR DIALYSIS CATH INSERT VASCULAR ACCESS Medical History Medical History Date Comments ESRD (end stage renal disease) on dialysis ([facility]) MWF Hypertension Hyperlipidemia Gouty arthritis Diabetes mellitus ([facility]) GERD (gastroesophageal reflux disease) COPD (chronic obstructive pulmonary disease) ([facility]) Social History Tobacco Use Types Packs/Day Years Used Date Smoking Tobacco: Former Cigarettes Smokeless Tobacco: Never Tobacco Cessation:Counseling Given: Not Answered Alcohol Use Standard Drinks/Week Comments Not Currently 0 (1 standard drink = 0.6 oz pur e alcohol) Housing Instability Answer Date Recorde d Are you worried that in the next 2 months you may not have stable housing? Unable to respond 03/25/2024 Food Access & Nutrition Answer Date Rec orded Do you have access to a vari ety of food including fruits and vegetables? Unable to respond 03/25/2024 Health Literacy Answer Date Recorded How often do you need to hav e someone help you when you read instructions, pamphlets, or other written material from your doctor or pharmacy? Unable to respond 03/25/2024 Caregiver: How often do you need to have someone help you when you read instructions, pamphlets, or other written material from your doctor or pharmacy? Not on file 025 Financial Risk Answer Date Recorded How hard is it for you to pa y for the very basics like food, housing, medical care, and air conditioning / heating? Unable to respond 03/25/2024 Transportation Answer Date Recorded Has the lack of transportati on kept you from meetings, work, or from getting things needed for daily living? Unable to respond 03/25/2024 Has the lack of transportati on kept you from medical appointments or from getting medications? Unable to respond 03/25/2024 Social Isolation Answer Date Recorded How often do you feel lonely or isolated from those around you? Unable to respond 03/25/2024 Food Risk Answer Date Recorded Within the past 12 months we worried whether our food would run out before we got money to buy more. Unable to respond 025 Within the past 12 months th e food we bought just didn't last and we didn't have money to get more. Unable to respond 03/07 Dependent Care Answer Date Recorded Do you need help finding or paying for care for your loved ones. For example, child care leader or elderly care for an older adult? Unable to respond 03/25/2024 Education Answer Date Recorded Do you think completing more education or training, like finishing a GED, going to college, or learning a trade, would be helpful for you? Unable to respond 03/25/2024 Employment and Income Answer Date Recor ded During the last four weeks, have you been actively looking for work? Unable to respond 03/25/2024 Living Situation Answer Date Recorded What is your living situation? 0 03/25/2024 Interpersonal Safety Answer Date Record ed Physical Abuse 03/25/2024 Verbal Abuse 03/25/2024 Sex and Gender Information Value Date Recorded Sex Assigned at Not on file Gender Identity Not on file Sexual Orientation Not on file Job Start Date Occupation Industry Not on file Not on file Not on file Obstetrics History Last Filed Vital Signs Vital Sign Reading Time Taken Comments Blood Pressure 169/90 03/27/2024 3:29 PM EST Pulse 71 03/27/2024 3:29 PM EST Temperature 36.8 ??C (98.3 ??F) 03/27/2024 3:29 PM ES T Respiratory Rate 16 03/27/2024 3:29 PM EST Oxygen Saturation 91% 03/27/2024 3:29 PM EST Inhaled Oxygen Concentration - - Weight 71.5 kg (157 lb 9.6 oz) 03/27/2024 5:00 A M EST Height 167.6 cm (5' 6 ) 03/25/2024 7:41 AM EST Body Mass Index 25.44 03/25/2024 7:41 AM EST Plan of Treatment Health Maintenance Due Date Last Done Comments Diabetes: Annual Foot Exam 1966 Diabetes: Annual Retina Eye Exam 1966 RSV Immunization Patients 60+ Years Old (1 - Risk 60-74 years 1-dose series) 2016 Abdominal Aortic Aneurysm (AAA) Screen 02/06/2022 Colorectal Cancer Screening: Colonoscopy 02/06/2022 Depression Screening 02/06/2022 Medicare Annual Wellness Visit 02/06/2022 COVID-19 Vaccine ( season) 2023 12/17/2021, 08/20/2021, 01/08/2021, Additional history exists Diabetes: Annual Urine Albumin-Creatinine Ratio (uACR) 03/25/2024 Diabetes: Blood Sugar Control Test (HGBA1C) 03/25/2024 Social Influencers of Health Screening 03/25/2025 03/25/2024 Falls Risk Assessment 03/27/2025 03/27/2024 Diabetes: Annual GFR (Glomerular Filtration Rate) 04/02/2025 04/02/2024, 03/27/2024, 03/26/2024, Additional history exists Hypertension/CHF/CAD Annual BMP Blood Test 04/02/2025 04/02/2024, 03/27/2024, 03/26/2024, Additional history exists Cholesterol Screening (Lipid Panel) 05/29/2026 05/29/2021 DTaP,Tdap,and Td Vaccines (6 - Td or Tdap) 08/02/2033 08/03/2023, 01/02/2023, 09/21/2020, Additional history exists Zoster Vaccines Completed 01/07/2020, 07/27/2017 Hepatitis C Screening Completed 05/17/2021 Hepatitis B Vaccines Completed 01/07/2022, 11/10/2021, 10/06/2021, Additional history exists Pneumococcal Vaccine: 65+ Years Completed 09/14/2023, 01/15/2021, 11/13/2020, Additional history exists Influenza Vaccine Completed 11/14/2023, , 02/15/2022, Additional history exists HIB Vaccines Aged Out No longer eligi ble based on patient's age to complete this topic HPV Vaccines Aged Out No longer eligi ble based on patient's age to complete this topic Hepatitis A Vaccines Aged Out No long er eligible based on patient's age to complete this topic IPV Vaccines Aged Out No longer eligi ble based on patient's age to complete this topic MMR Vaccines Aged Out No longer eligi ble based on patient's age to complete this topic Meningococcal ACWY Vaccine Aged Out N o longer eligible based on patient's age to complete this topic RSV Immunization Patients Under 20 months Aged Out No longer eligible based on patient's age to complete this topic Varicella Vaccines Aged Out No longer eligible based on patient's age to complete this topic Procedures Procedure Name Priority Date/Time Associated Diagnosis Comments BASIC METABOLIC PANEL Routine 04/02/2024 5:24 AM EST End stage renal disease (CMS/HCC) COMPLETE BLOOD COUNT Routine 04/02/2024 5:24 AM EST End stage renal disease (CMS/HCC) POCT GLUCOSE BLOOD Routine 03/27/2024 4: 55 PM EST POCT GLUCOSE BLOOD Routine 03/27/2024 12 :33 PM EST POCT GLUCOSE BLOOD Routine 03/27/2024 10 :27 AM EST CBC WITH AUTO DIFFERENTIAL Routine 03/27/2024 7:35 AM EST CBC AND DIFFERENTIAL Routine 03/27/2024 7:35 AM EST MAGNESIUM Routine 03/27/2024 7:35 AM EST BASIC METABOLIC PANEL Routine 03/27/2024 7:35 AM EST POCT GLUCOSE BLOOD Routine 03/27/2024 6: 52 AM EST POCT GLUCOSE BLOOD Routine 03/26/2024 9: 10 PM EST POCT GLUCOSE BLOOD Routine 03/26/2024 3: 51 PM EST CULTURE BLOOD Routine 03/26/2024 2:56 PM EST POCT GLUCOSE BLOOD Routine 03/26/2024 12 :40 PM EST HEMODIALYSIS INPATIENT Routine 10:59 AM EST POCT GLUCOSE BLOOD Routine 03/26/2024 8: 31 AM EST LAVENDER - EDTA Routine 03/26/2024 6:50 AM EST EXTRA TUBES Routine 03/26/2024 6:50 AM EST BASIC METABOLIC PANEL Routine 03/26/2024 6:50 AM EST POCT GLUCOSE BLOOD Routine 03/25/2024 8: 58 PM EST MAGNESIUM Routine 03/25/2024 6:56 PM EST BASIC METABOLIC PANEL Routine 03/25/2024 6:56 PM EST RESPIRATORY VIRUS PANEL MOLECULAR STUDY Routine 03/25/2024 6:49 PM EST POCT GLUCOSE BLOOD Routine 03/25/2024 5: 10 PM EST ETHANOL Add-On 03/25/2024 12:01 PM EST BASIC METABOLIC PANEL STAT 03/25/2024 12:01 PM EST HEMODIALYSIS INPATIENT Routine 10:36 AM EST LINDSEY URINE CULTURE TUBE STAT 03/25/2024 8:26 AM EST URINALYSIS WITH REFLEX MICROSCOPIC AND CULTURE STAT 03/25/2024 8:26 AM EST URINALYSIS WITH REFLEX MICROSCOPIC AND CULTURE STAT 03/25/2024 8:26 AM EST CULTURE URINE STAT 03/25/2024 8:26 AM EST HEPATITIS B SURFACE ANTIGEN WITH CONFIRMATION Add-On 03/25/2024 8:17 AM EST HEPATITIS B SURFACE ANTIBODY QUANTITATIVE Add-On 03/25/2024 8:17 AM EST VENOUS BLOOD GAS STAT 03/25/2024 8:17 AM EST CBC WITH AUTO DIFFERENTIAL STAT 03/25/2024 8:17 AM EST AMMONIA STAT 03/25/2024 8:17 AM EST COMPREHENSIVE METABOLIC PANEL STAT 03/25/2024 8:17 AM EST CBC AND DIFFERENTIAL STAT 03/25/2024 8:17 AM EST ECG 12-LEAD STAT 03/25/2024 7:58 AM EST XR CHEST 1 VIEW STAT 03/25/2024 7:46 AM EST COMPREHENSIVE METABOLIC PANEL Routine 03/25/2024 5:09 AM EST Anemia, unspecified Chronic diastolic (congestive) heart failure (CMS/HCC) Other pericardial effusion (noninflammatory) End stage renal disease (CMS/HCC) COMPLETE BLOOD COUNT Routine 03/25/2024 5:09 AM EST Anemia, unspecified Chronic diastolic (congestive) heart failure (CMS/HCC) Other pericardial effusion (noninflammatory) End stage renal disease (CMS/HCC) ECG ANNOTATED 03/25/2024 from Last 3 Months Results * (ABNORMAL) Complete blood count (04/02/2024 5:24 AM EST) Only the most recent of2 resultswithin the time period is included. WBC 26.2(H) 4.8 - 10.8 K/mcL LAB HEMETOLOGY METHOD 04/02/2024 9:47 AM [facility] RBC 4.10(L) 4.50 - 5.50 M/mcL LAB HEMETOLOGY METHOD 04/02/2024 9:47 AM [facility] Hemoglobin 9.4(L) 13.5 - 17.5 g/dL LAB HEMETOLOGY METHOD 04/02/2024 9:47 AM [facility] Hematocrit 31.2(L) 42.0 - 54.0 % LAB HEMETOLOGY METHOD 04/02/2024 9:47 AM [facility] MCV 76.1(L) 79.0 - 98.0 FL LAB HEMETOLOGY METHOD 04/02/2024 9:47 AM [facility] MCH 22.9(L) 27.0 - 32.0 pcg LAB HEMETOLOGY METHOD 04/02/2024 9:47 AM [facility] MCHC 30.1(L) 32.0 - 37.0 g/dL LAB HEMETOLOGY METHOD 04/02/2024 9:47 AM EST [facility] RDW 17.1(H) 11.0 - 15.0 % LAB HEMETOLOGY METHOD 04/02/2024 9:47 AM [facility] Platelets 349 130 - 400 K/mcL LAB HEMETOLOGY METHOD 04/02/2024 9:47 AM [facility] MPV 11.4(H) 7.0 - 11.0 FL LAB HEMETOLOGY METHOD 04/02/2024 9:47 AM [facility] NRBC 0.0 <1.0 % [facility] 04/02/2024 9:47 AM [facility] NRBC Absolute 0.00 <0.10 K/mcL LAB HEMETOLOGY METHOD 04/02/2024 9:47 AM [facility] Blood Venous blood specimen / Unknown Venipuncture / Unknown 04/02/2024 5:24 AM EST 04/02/2024 8:48 AM EST Cass Turcios MD LAB BLOOD ORDERABLES [facility] [address] [place] [address], * (ABNORMAL) Basic metabolic panel (04/02/2024 5:24 AM EST) Only the most recent of5 resultswithin the time period is included. Sodium 135 133 - 145 mmol/L LAB CHEMISTRY METHOD 04/02/2024 10:35 AM [facility] Potassium 5.6(H) 3.5 - 5.5 mmol/L LAB CHEMISTRY METHOD 04/02/2024 10:35 AM [facility] Chloride 95(L) 96 - 110 mmol/L LAB CHEMISTRY METHOD 04/02/2024 10:35 AM [facility] CO2 32 21 - 32 mmol/L LAB CHEMISTRY METHOD 04/02/2024 10:35 AM [facility] Anion Gap 8 3 - 11 LAB CHEMISTRY METHOD 04/02/2024 10:35 AM [facility] Glucose 32(LL) 70 - 100 mg/dL LAB CHEMISTRY METHOD 04/02/2024 10:35 AM [facility] BUN 50(H) 5 - 25 mg/dL LAB CHEMISTRY METHOD 04/02/2024 10:35 AM [facility] Creatinine 7.72(H) 0.70 - 1.30 mg/dL LAB CHEMISTRY METHOD 04/02/2024 10:35 AM [facility] eGFR 7(L) >=60 mL/min/1. 73m2 LAB CHEMISTRY METHOD 04/02/2024 10:35 AM [facility] Comment:Calculation based on the??Chronic Kidney Disease Epidemiology Collaboration (CKD-EPI) equation refit??without adjustment for race. BUN/Creatinine Ratio 6.5 LAB CHEMISTRY METHOD 04/02/2024 10:35 AM [facility] Calcium 8.3(L) 8.5 - 10.5 mg/dL LAB CHEMISTRY METHOD 04/02/2024 10:35 AM [facility] Blood Venous blood specimen / Unknown Venipuncture / Unknown 04/02/2024 5:24 AM EST 04/02/2024 8:48 AM EST Cass Turcios MD LAB BLOOD ORDERABLES [facility] [address] [place] [address], * (ABNORMAL) POCT Glucose, blood (03/27/2024 4:55 PM EST) Only the most recent of10 resultswithin the time period is included. [facility] Glucose POCT 276(H) 70 - 100 mg/dL 03/27/2024 4:56 PM [facility] Blood Capillary blood specimen / Unknown 03/27/2024 4:55 PM EST 03/27/2024 4:57 PM EST Marion Hernandez MD LAB POINT OF CARE TE ST DOCKED DEVICE UNSOLICITED RESULTS [facility] [address] [place] [address], [place] [phone] * (ABNORMAL) CBC auto differential (03/27/2024 7:35 AM EST) Only the most recent of2 resultswithin the time period is included. [facility] WBC 6.4 4.8 - 10.8 K/mcL LAB HEMETOLOGY METHOD 03/27/2024 9:44 AM [facility] RBC 4.20(L) 4.50 - 5.50 M/mcL LAB HEMETOLOGY METHOD 03/27/2024 9:44 AM [facility] Hemoglobin 9.7(L) 13.5 - 17.5 g/dL LAB HEMETOLOGY METHOD 03/27/2024 9:44 AM [facility] Hematocrit 32.2(L) 42.0 - 54.0 % LAB HEMETOLOGY METHOD 03/27/2024 9:44 AM [facility] MCV 76.3(L) 79.0 - 98.0 FL LAB HEMETOLOGY METHOD 03/27/2024 9:44 AM [facility] MCH 23.0(L) 27.0 - 32.0 pcg LAB HEMETOLOGY METHOD 03/27/2024 9:44 AM [facility] MCHC 30.1(L) 32.0 - 37.0 g/dL LAB HEMETOLOGY METHOD 03/27/2024 9:44 AM [facility] RDW 17.0(H) 11.0 - 15.0 % LAB HEMETOLOGY METHOD 03/27/2024 9:44 AM [facility] Platelets 160 130 - 400 K/mcL LAB HEMETOLOGY METHOD 03/27/2024 9:44 AM [facility] MPV LAB HEMETOLOGY METHOD 03/27/2024 9:44 AM [facility] Comment:Not Measured NRBC 0.0 <1.0 % LAB HEMETOLOGY METHOD 03/27/2024 9:44 AM [facility] NRBC Absolute 0.00 <0.10 K/mcL LAB HEMETOLOGY METHOD 03/27/2024 9:44 AM [facility] Neutrophils Relative 82.3 % LAB HEMETOLOGY METHOD 03/27/2024 9:44 AM [facility] Lymphocytes Relative 6.4 % LAB HEMETOLOGY METHOD 03/27/2024 9:44 AM [facility] Monocytes Relative 9.0 % LAB HEMETOLOGY METHOD 03/27/2024 9:44 AM [facility] Eosinophils Relative 0.2 % LAB HEMETOLOGY METHOD 03/27/2024 9:44 AM [facility] Basophils Relative 0.5 % LAB HEMETOLOGY METHOD 03/27/2024 9:44 AM [facility] Immature Granulocytes Relative 1.6 % LAB HEMETOLOGY METHOD 03/27/2024 9:44 AM [facility] Neutrophils Absolute 5.31 1.50 - 7.00 K/mcL LAB HEMETOLOGY METHOD 03/27/2024 9:44 AM [facility] Lymphocytes Absolute 0.41(L) 1.00 - 5.00 K/mcL LAB HEMETOLOGY METHOD 03/27/2024 9:44 AM [facility] Monocytes Absolute 0.58 0.20 - 1.00 K/mcL LAB HEMETOLOGY METHOD 03/27/2024 9:44 AM EST [facility] Eosinophils Absolute 0.01 0.00 - 0.50 K/[facility] LAB HEMETOLOGY METHOD 03/27/2024 9:44 AM EST [facility] Basophils Absolute 0.03 0.00 - 0.20 K/[facility] LAB HEMETOLOGY METHOD 03/27/2024 9:44 AM EST [facility] Immature Granulocytes Absolute 0.10(H) 0.00 - 0.03 K/[facility] LAB HEMETOLOGY METHOD 03/27/2024 9:44 AM EST [facility] Blood Venous blood specimen / Unknown Venipuncture / Unknown 03/27/2024 7:35 AM EST 03/27/2024 9:09 AM EST Luisa Shepherd NP LAB BLOOD ORDERABLES Performing Organization Address City/[facility]/ZIP Co de Phone Number [facility] [address] [place] [address], [place] [phone] * (ABNORMAL) Magnesium (03/27/2024 7:35 AM EST) Only the most recent of2 resultswithin the time period is included. Pathologist [facility] Magnesium 1.2(L) 1.9 - 2.6 mg/dL LAB CHEMISTRY METHOD 03/27/2024 9:42 AM EST [facility] Blood Venous blood specimen / Unknown Venipuncture / Unknown 03/27/2024 7:35 AM EST 03/27/2024 9:08 AM EST Luisa Shepherd NP LAB BLOOD ORDERABLES [facility] [address] [place] [address], [place] [phone] * Culture blood (03/26/2024 2:56 PM EST) Culture, Blood No growth at 5 days 03/31/2024 4:01 PM EST [facility] Blood Venous blood specimen / Unknown Venipuncture / Unknown 03/26/2024 2:56 PM EST 03/26/2024 3:05 PM EST Marion Hernandez MD LAB MICROBIOLOGY - G ENERAL ORDERABLES Performing Organization Address City/[facility]/ZIP Co de Phone Number [facility] [address] [place] [address], [place] [phone] * Lavender tube (03/26/2024 6:50 AM EST) Pathologist [facility] Extra Tube Hold for add-ons. 03/26/2024 9:01 AM [facility] Comment:Auto resulted. Blood Venous blood specimen / Unknown 03/26/2024 6:50 AM EST 03/26/2024 7:01 AM EST Marion Hernandez MD LAB BLOOD ORDERABLES Performing Organization Address City/[facility]/ZIP Co de Phone Number [facility] [address] [place] [address], [place] [phone] * Respiratory virus panel molecular study (03/25/2024 6:49 PM EST) [facility] Adenovirus Detection by PCR Not Detected Not Detected LAB MICROBIOLOGY METHOD 03/25/2024 8:14 PM [facility] Influenza A PCR Not Detected Not Detected LAB MICROBIOLOGY METHOD 03/25/2024 8:14 PM [facility] Influenza B PCR Not Detected Not Detected LAB MICROBIOLOGY METHOD 03/25/2024 8:14 PM [facility] Coronavirus 229E Not Detected Not Detected LAB MICROBIOLOGY METHOD 03/25/2024 8:14 PM [facility] Coronavirus HKU1 Not Detected Not Detected LAB MICROBIOLOGY METHOD 03/25/2024 8:14 PM [facility] Coronavirus OC43 Not Detected Not Detected LAB MICROBIOLOGY METHOD 03/25/2024 8:14 PM [facility] Coronavirus NL63 Not Detected Not Detected LAB MICROBIOLOGY METHOD 03/25/2024 8:14 PM [facility] Parainfluenza Virus 1 Not Detected Not Detected LAB MICROBIOLOGY METHOD 03/25/2024 8:14 PM [facility] Parainfluenza Virus 2 Not Detected Not Detected LAB MICROBIOLOGY METHOD 03/25/2024 8:14 PM [facility] Parainfluenza Virus 3 Not Detected Not Detected LAB MICROBIOLOGY METHOD 03/25/2024 8:14 PM [facility] Parainfluenza Virus 4 Not Detected Not Detected LAB MICROBIOLOGY METHOD 03/25/2024 8:14 PM [facility] RSV PCR Not Detected Not Detected LAB MICROBIOLOGY METHOD 03/25/2024 8:14 PM [facility] Human Metapneumovirus A and B Not Detected Not Detected LAB MICROBIOLOGY METHOD 03/25/2024 8:14 PM [facility] Rhinovirus/Entero virus Not Detected Not Detected LAB MICROBIOLOGY METHOD 03/25/2024 8:14 PM [facility] Bordetella pertussis Not Detected Not Detected LAB MICROBIOLOGY METHOD 03/25/2024 8:14 PM [facility] Bordetella parapertussis Not Detected Not Detected LAB MICROBIOLOGY METHOD 03/25/2024 8:14 PM [facility] Mycoplasma pneumo by PCR Not Detected Not Detected LAB MICROBIOLOGY METHOD 03/25/2024 8:14 PM [facility] Chlamydia pneumoniae Not Detected Not Detected LAB MICROBIOLOGY METHOD 03/25/2024 8:14 PM [facility] SARS COV-2 Not Detected Not Detected LAB MICROBIOLOGY METHOD 03/25/2024 8:14 PM [facility] Swab Both anterior nares / Unknown Non-blood Collection / Unknown 03/25/2024 6:49 PM EST 03/25/2024 6:59 PM EST Narrative [facility] - 03/25/2024 8:14 PM EST Testing was performed using the [employer] Respiratory Pathogen PCR Assay. All results must be correlated with the clinical findings. Results should not be used as the sole basis for diagnosis. False Negative results may occur from the presence of sequence variants in the region targeted by the assay or the presence of inhibitors. Results may be affected by concurrent antiviral/antimicrobial therapy or levels of organisms that are below the limit of detection. Radha MONTERO LAB MICROBIOLOGY - G ENERAL ORDERABLES Performing Organization Address City/[facility]/ZIP Co de Phone Number [facility] [address] [place] [address], [place] [phone] * Ethanol (03/25/2024 12:01 PM EST) Ethanol Level <3 0 - 10 mg/dL LAB CHEMISTRY METHOD 03/25/2024 1:57 PM [facility] Blood Venous blood specimen / Unknown Venipuncture / Unknown 03/25/2024 12:01 PM EST 03/25/2024 12:20 PM EST Radha MONTERO LAB BLOOD ORDERABLES [facility] [address] [place] [address], [place] [phone] * (ABNORMAL) Urinalysis with reflex microscopic and culture (03/25/2024 8:26 AM EST) Specific [place] Urine 1.015 1.003 - 1.030 LAB URINALYSIS - AUTOMATED METHOD 03/25/2024 9:54 AM [facility] pH, Urine 6.5 5.0 - 8.0 pH LAB URINALYSIS - AUTOMATED METHOD 03/25/2024 9:54 AM [facility] Leukocytes, Urine Trace(A) Negative LAB URINALYSIS - AUTOMATED METHOD 03/25/2024 9:54 AM [facility] Nitrite, Urine Positive(A) Negative LAB URINALYSIS - AUTOMATED METHOD 03/25/2024 9:54 AM [facility] Protein, Urine >=300(A) <=Trace mg/dL LAB URINALYSIS - AUTOMATED METHOD 03/25/2024 9:54 AM [facility] Glucose, Urine 250(A) Negative mg/dL LAB URINALYSIS - AUTOMATED METHOD 03/25/2024 9:54 AM [facility] Ketones, Urine Negative Negative mg/dL LAB URINALYSIS - AUTOMATED METHOD 03/25/2024 9:54 AM [facility] Urobilinogen , Urine 0.2 0.2 - 1.0 mg/dL LAB URINALYSIS - AUTOMATED METHOD 03/25/2024 9:54 AM [facility] Bilirubin, Urine Negative Negative LAB URINALYSIS - AUTOMATED METHOD 03/25/2024 9:54 AM [facility] Blood, Urine Moderate(A) Negative LAB URINALYSIS - AUTOMATED METHOD 03/25/2024 9:54 AM [facility] RBC, Urine 10(H) 0 - 4 /HPF 03/25/2024 9:54 AM [facility] WBC, Urine 80(H) 0 - 4 /HPF 03/25/2024 9:54 AM [facility] Squamous Epithelial, Urine 100(H) 0 - 60 /LPF 03/25/2024 9:54 AM [facility] Crystals, Urine Moderate Amorphous Urate crystals. /LPF 03/25/2024 9:54 AM [facility] Bacteria, Urine Moderate(A) Negative /HPF 03/25/2024 9:54 AM [facility] Urine Urine specimen obtained by clean catch procedure / Unknown Non-blood Collection / Unknown 03/25/2024 8:26 AM EST 03/25/2024 8:54 AM EST Noman Conteh MD LAB URINE ORDERAB LES Performing Organization Address City/[facility]/ZIP Co de Phone Number [facility] [address] [place] [address], [place] [phone] * Lindsey urine culture tube (03/25/2024 8:26 AM EST) Pathologist [facility] Extra Tube Hold for add-ons. 03/25/2024 10:01 AM EST [facility] Comment:Auto resulted. Urine Urine specimen obtained by clean catch procedure / Unknown Non-blood Collection / Unknown 03/25/2024 8:26 AM EST 03/25/2024 8:54 AM EST Noman Conteh MD LAB URINE ORDERAB LES Performing Organization Address City/[facility]/ZIP Co de Phone Number [facility] [address] [place] [address], [place] [phone] * Culture urine (03/25/2024 8:26 AM EST) [facility] Culture, Urine No growth 03/26/2024 10:25 AM EST [facility] Urine Urine specimen obtained by clean catch procedure / Unknown Non-blood Collection / Unknown 03/25/2024 8:26 AM EST 03/25/2024 9:54 AM EST Noman Conteh MD LAB MICROBIOLOGY - GENERAL ORDERABLES Performing Organization Address City/[facility]/ZIP Co de Phone Number [facility] [address] [place] [address], [place] [phone] * Hepatitis B surface antigen with reflex to confirmation (03/25/2024 8:17 AM EST) Pathologist [facility] Hepatitis B Surface Ag Negative Negative LAB CHEMISTRY METHOD 03/25/2024 12:29 PM EST [facility] Blood Venous blood specimen / Unknown Venipuncture / Unknown 03/25/2024 8:17 AM EST 03/25/2024 8:57 AM EST [facility] - 03/25/2024 12:29 PM EST Over the counter supplements containing high doses of biotin may interfere with this assay. ??If interference is suspected, patients shoud be retested after refraining from biotin supplements for 72 hours. Noman Conteh MD LAB BLOOD ORDERAB LES Performing Organization Address [facility]/ZIP Co de Phone Number [facility] [address] [place] [address], * Hepatitis B surface antibody quantitative (03/25/2024 8:17 AM EST) Hepatitis B Surface Ab Negative Negative LAB CHEMISTRY METHOD 03/25/2024 12:18 PM EST [facility] Hepatitis B Surface Ab Quantitative 7.1 mIU/mL LAB CHEMISTRY METHOD 03/25/2024 12:18 PM EST [facility] Blood Venous blood specimen / Unknown Venipuncture / Unknown 03/25/2024 8:17 AM EST 03/25/2024 8:57 AM EST [facility] - 03/25/2024 12:18 PM EST >=10 mIU/mL is considered to be consistent with immunity. Noman Conteh MD LAB BLOOD ORDERAB LES [facility] [address] [place] [address], * (ABNORMAL) Venous blood gas (03/25/2024 8:17 AM EST) pH, [place] 7.12(LL) 7.32 - 7.42 pH 03/25/2024 9:04 AM EST [facility] pCO2, [place] 48 41 - 51 mmHg 03/25/2024 9:04 AM [facility] pO2, [place] 54(H) 25 - 40 mmHg 03/25/2024 9:04 AM [facility] HCO3, Venous 14.2(L) 22.0 - 26.0 mmol/L 03/25/2024 9:04 AM [facility] O2 Sat, [place] 82.3 % 03/25/2024 9:04 AM [facility] Base Excess, [place] -13.3(L) -2.0 - 2.0 mmol/L 03/25/2024 9:04 AM [facility] Blood Venous blood specimen / Unknown Venipuncture / Unknown 03/25/2024 8:17 AM EST 03/25/2024 8:56 AM EST Noman Conteh MD LAB BLOOD ORDERAB LES Performing Organization Address City/[facility]/ZIP Co de Phone Number [facility] [address] [place] [address], [place] [phone] * Ammonia (03/25/2024 8:17 AM EST) Ammonia 20 11 - 35 mcmol/L LAB CHEMISTRY METHOD 03/25/2024 9:17 AM [facility] Blood Venous blood specimen / Unknown Venipuncture / Unknown 03/25/2024 8:17 AM EST 03/25/2024 8:57 AM EST Noman Conteh MD LAB BLOOD ORDERAB LES [facility] [address] [place] [address], [place] [phone] * (ABNORMAL) Comprehensive metabolic panel (03/25/2024 8:17 AM EST) Only the most recent of2 resultswithin the time period is included. Pathologist [facility] Sodium 134 133 - 145 mmol/L LAB CHEMISTRY METHOD 03/25/2024 9:50 AM [facility] Potassium 6.8(HH) 3.5 - 5.5 mmol/L LAB CHEMISTRY METHOD 03/25/2024 9:50 AM [facility] Chloride 99 96 - 110 mmol/L LAB CHEMISTRY METHOD 03/25/2024 9:50 AM [facility] CO2 17(L) 21 - 32 mmol/L LAB CHEMISTRY METHOD 03/25/2024 9:50 AM [facility] Anion Gap 18(H) 3 - 11 LAB CHEMISTRY METHOD 03/25/2024 9:50 AM [facility] Glucose 144(H) 70 - 100 mg/dL LAB CHEMISTRY METHOD 03/25/2024 9:50 AM [facility] BUN 115(H) 5 - 25 mg/dL LAB CHEMISTRY METHOD 03/25/2024 9:50 AM [facility] Comment:Results verified by repeat testing Creatinine 13.00() 0.70 - 1.30 mg/dL LAB CHEMISTRY METHOD 03/25/2024 9:50 AM [facility] eGFR 4(L) >=60 mL/min/1 .73m2 LAB CHEMISTRY METHOD 03/25/2024 9:50 AM [facility] Comment:Calculation based on the??Chronic Kidney Disease Epidemiology Collaboration (CKD-EPI) equation refit??without adjustment for race. BUN/Creatinine Ratio 8.8 LAB CHEMISTRY METHOD 03/25/2024 9:50 AM [facility] Calcium 8.8 8.5 - 10.5 mg/dL LAB CHEMISTRY METHOD 03/25/2024 9:50 AM [facility] AST (SGOT) 24 10 - 42 unit/L LAB CHEMISTRY METHOD 03/25/2024 9:50 AM [facility] ALT (SGPT) 7(L) 10 - 60 unit/L LAB CHEMISTRY METHOD 03/25/2024 9:50 AM EST [facility] Alkaline Phosphatase 163(H) 42 - 121 unit/L LAB CHEMISTRY METHOD 03/25/2024 9:50 AM EST [facility] Total Protein 7.1 6.0 - 8.0 g/dL LAB CHEMISTRY METHOD 03/25/2024 9:50 AM EST [facility] Albumin 2.7(L) 3.2 - 5.0 g/dL LAB CHEMISTRY METHOD 03/25/2024 9:50 AM EST [facility] Total Bilirubin 0.4 0.0 - 1.4 mg/dL LAB CHEMISTRY METHOD 03/25/2024 9:50 AM EST [facility] Blood Venous blood specimen / Unknown Venipuncture / Unknown 03/25/2024 8:17 AM EST 03/25/2024 8:57 AM EST Noman Conteh MD LAB BLOOD ORDERAB LES [facility] [address] [place] [address], * ECG 12 lead (03/25/2024 7:58 AM EST) Ventricular Rate ECG 70 BPM GEMUSE Atrial Rate 70 BPM GEMUSE P-R Interval 174 ms GEMUSE QRS Duration 98 ms GEMUSE Q-T Interval 410 ms GEMUSE QTc 442 ms GEMUSE P Wave [place] 3 degrees GEMUSE R [place] 6 degrees GEMUSE T [place] 87 degrees GEMUSE ECG Interpretation Normal sinus rhythm Poor R wave progression When compared with ECG of 10-AUG-2020 02:25, No significant change was found Confirmed by Meena MACDONALD YUFENG ([id number]) on 03/25/2024 9:18:31 AM GEMUSE 03/25/2024 7:58 AM EST 03/25/2024 9:18 AM EST Noman Conteh MD ECG ORDERABLES GEMUSE * XR Chest 1 View (03/25/2024 7:46 AM EST) Anatomical Region Laterality Modality Body Radiographic Fawn ging 03/25/2024 8:45 AM EST Impressions 03/25/2024 8:46 AM EST Small right pleural effusion with underlying atelectasis and/or infiltrate. The left lung remains clear. Cardiomegaly, new since 08/10/2020. Code 45838 -------- FINAL REPORT -------- Dictated By: Daren Sol Dictated Date: 03/25/2024 08:45 ET Assigned Physician: Daren Sol Reviewed and Electronically Signed By: Daren Sol Signed Date: 03/25/2024 08:46 ET Workstation ID: [id number] Transcribed By: Self Edit Transcribed Date: 03/25/2024 08:45 ET Narrative 03/25/2024 8:46 AM EST HISTORY: The patient is a 68-year-old male with altered mental status. FINDINGS: Sitting AP portable radiograph of the chest demonstrates that a right internal jugular tunneled dialysis catheter has been placed since the prior study of 08/20/2020 with the tip in good position in the lower superior vena cava. There is levoscoliosis of the thoracolumbar spine. The cardiac silhouette is enlarged, increased in size since the prior study. The aortic knob is calcified. A small right pleural effusion has developed, with underlying atelectasis and/or infiltrate. The left lung remains clear. Procedure Note Daren Sol MD - 03/25/2024 HISTORY: The patient is a 68-year-old male with altered mental status. FINDINGS: Sitting AP portable radiograph of the chest demonstrates that aright internal jugular tunneled dialysis catheter has been placed sincethe prior study of 08/20/2020 with the tip in good position in the lowersuperior vena cava. There is levoscoliosis of the thoracolumbar spine. Thecardiac silhouette is enlarged, increased in size since the prior study.The aortic knob is calcified. A small right pleural effusion hasdeveloped, with underlying atelectasis and/or infiltrate. The left lungremains clear. IMPRESSION: Small right pleural effusion with underlying atelectasis and/orinfiltrate. The left lung remains clear. Cardiomegaly, new since08/10/2020. Code 45994 -------- FINAL REPORT -------- Dictated By: Daren Sol Dictated Date: 03/25/2024 08:45 ET Assigned Physician: Daren Sol Reviewed and Electronically Signed By: Daren Sol Signed Date: 03/25/2024 08:46 ET Workstation ID: [id number] Transcribed By: Self Edit Transcribed Date: 03/25/2024 08:45 ET Noman Conteh MD IMG XR PROCEDURES * ECG-Annotated (03/25/2024) Provider Onbase ECG ORDERABLES from Last 3 Months Advance Directives Documents on File Type Date Recorded Patient Product Transfer Pumper Expl anation Advance Directives and Living Will 03/29/2024 1:25 PM PROXY Advance Directives and Living Will 03/29/2024 9:18 AM [facility] Proxy Advance Directives and Living Will 03/28/2024 8:23 AM * Full Code - Default (Latest Code Status on File) Date Activated Date Inactivated Comments 03/25/2024 11:46 AM 03/27/2024 9:02 PM This is ord er is used when code status has not been discussed with the patient, or code status is otherwise unknown/unconfirmed To update the patient's code status, place a code status order. Do not modify or discontinue any currently active code status orders. Healthcare Agents on File Name Relationship Healthcare Agent Relationshi p Communication [facility] Care Agent Beau Frank [facility] Agent Care Teams American History Professor Relationship Specialty Start Date End Date Cass Turcios MD [address] [place] [address] [address] [place] [address] PCP - General Geriatric Medicine 04/02/24
--- OUTSIDE RECORDS SUMMARY | 2024-04-05 13:03 | XMS_ITS | Encounter Summary ---
Author Organization [facility], Address [address] [place] [address] Phone Care Team Providers Care Guitar Teacher Name Role Phone Jade Lewis MD Primary Care Provider + [phone] Reason for Visit * Reason Comments Med Refill Encounter Details Date Type Department Care Team (Late st Contact Info) Description 04/27/2019 Refill [facility] [address] [place] [address] Mercedes Law MD Social History [...] on filedocumented in this encounter Care Teams Guitar Teacher Relationship Specialty Start Date End Date Jade Lewis MD [address] [place], [place] [phone] PCP - General Internal Medicine 04/25/22 documented as of this encounter
--- OUTSIDE RECORDS SUMMARY | 2024-04-05 13:03 | XMS_ITS | Clinical Summary ---
Author Organization [facility] Address [address] [place] [address] [place] [address] Care Team Providers Care Odd Piece Checker Name Role Phone Unavailable Primary Care Provider Unavailabl e Encounters Date Type Department Care Team Description 01/08/2024 Orders Only GENERIC EXTERNAL DATA DEPARTMENT Provider, Generic External Data from Last 3 Months Social History Tobacco Use Types Packs/Day Years Used Date Smoking Tobacco: Never Assessed Sex and Gender Information Value Date Recorded Sex Assigned at Male 01/03/2022 10:14 AM EDT Legal Sex Male 10:14 AM EDT Gender Identity Not on file Sexual Orientation Not on file Plan of Treatment Health Maintenance Due Date Last Done Comments CT Colonography 1955 Colonoscopy 1955 Colorectal Cancer Screening 1955 Depression Screening 1955 FIT DNA/Cologuard 1955 FIT 1955 FOBT 1955 Lipid Panel 1955 SDOH Screening 1955 Sigmoidoscopy 1955 Alcohol/Substance Use Screening 1968 Tobacco Screening 1968 Hepatitis C Screening 1974 Hepatitis A Vaccines (1 of 2 - Risk 2-dose series) 1975 RSV Patients and Patients Aged 60 years or older (1 - Risk 60-74 years 1-dose series) 2016 COVID-19 Vaccine ( season) 2023 08/20/2021, 01/08/2021, 07/29/2020, Additional history exists DTaP/Tdap/Td Vaccines (5 - Td or Tdap) 08/02/2033 08/03/2023, 09/21/2020, 09/21/2020, Additional history exists Hepatitis B Vaccines Completed 04/13/2016, 06/16/2011, 11/01/2010, Additional history exists Zoster Vaccines Completed 01/07/2020, 07/27/2017 Pneumococcal Vaccine: 50+ Years Completed 09/14/2023, 04/13/2016, 11/02/2015, Additional history exists Influenza Vaccine Completed 11/14/2023, , 12/21/2020, Additional history exists HIB Vaccines Aged Out No longer eligi ble based on patient's age to complete this topic HPV Vaccines Aged Out No longer eligi ble based on patient's age to complete this topic IPV Vaccines Aged Out No longer eligi ble based on patient's age to complete this topic Meningococcal Vaccine Aged Out No terrie yumiko eligible based on patient's age to complete this topic RSV under 20 months Aged Out No longe r eligible based on patient's age to complete this topic Rotavirus Vaccines Aged Out No longer eligible based on patient's age to complete this topic Procedures Procedure Name Priority Date/Time Associated Diagnosis Comments SED RATE BY MODIFIED WESTERGREN Routine 01/08/2024 11:44 AM EST C-REACTIVE PROTEIN Routine 01/08/2024 11 :44 AM EST COMPREHENSIVE METABOLIC PANEL Routine 01/08/2024 11:44 AM EST CBC WITH AUTO DIFFERENTIAL Routine 01/08/2024 11:44 AM EST XR FOOT 1-2 VIEWS RIGHT Routine 01/08/2024 11:35 AM EST from Last 3 Months Results * (ABNORMAL) CBC auto differential (01/08/2024 11:44 AM EST) White Blood Count 8.6 4.8 - 10.8 X10*3/uL [facility] Red Blood Count 4.98 4.60 - 5.80 X10*6/uL [facility] Hemoglobin 11.4(L) 14.0 - 18.0 g/dl [facility] Hematocrit 37.2(L) 42.0 - 52.0 % [facility] Mean Corpuscular Volume 74.7(L) 80.0 - 98.0 fL [facility] Mean Corpuscular Hemoglobin 22.9(L) 27.0 - 33.0 pg [facility] Mean Corpuscular HGB Conc 30.6(L) 31.0 - 36.0 g/dl [facility] Red Cell Distribution Width 15.8 11.0 - 16.0 % [facility] Platelet Count 167 160 - 400 X10*3/uL [facility] Mean Platelet Volume TNP 9.4 - 12.4 fL [facility] Neutrophils Percent Auto 71.5 45 - 73 % [facility] Imm Gran Pct Auto 0.3 0.0 - 0.4 % [facility] Lymphocytes Percent Auto 13.1(L) 20 - 40 % [facility] Monocytes Percent Auto 9.9 2 - 11 % [facility] Eosinophils Percent Auto 4.7(H) 0 - 4 % [facility] Basophils Percent Auto 0.5 0 - 2 % [facility] NRBC Pct Auto 0.2 0.0 - 0.2 /100WBC [facility] Neutrophils Absolute Auto 6.2 2.0 - 8.3 x10*3/uL [facility] Imm Gran Abs Auto 0.03 0.00 - 0.03 X10*3/uL [facility] Lymphocytes Absolute Auto 1.1(L) 1.2 - 4.9 X10*3/uL [facility] Monocytes Absolute Auto 0.9 0.1 - 1.2 X10*3/uL [facility] Eosinophils Absolute Auto 0.4 0.0 - 0.4 X10*3/uL [facility] Basophils Absolute Auto 0.0 0.0 - 0.2 X10*3/uL [facility] NRBC Abs Auto 0.020(H) 0.0 - 0.012 X10*3/uL [facility] 01/08/2024 11:4 4 AM EST 01/08/2024 11:47 AM EST us Generic External Data Provider LAB BLOOD ORDERAB LES Final Result [facility] [address] [place] [address] [phone] * (ABNORMAL) Sed Rate by Modified Westergren (01/08/2024 11:44 AM EST) Pathologist [facility] Erythrocyte Sedimentation Rate 30(H) 0 - 15 MM/HR [facility] Comment:Patients with polycy themia and many hemoglobin abnormalitiesmay have depressed sed rates whereas patients with anemiamay have elevated sed rates. 01/08/2024 11:4 4 AM EST 01/08/2024 11:47 AM EST Generic External Data Provider LAB BLOOD ORDERAB LES Final Result Performing Organization Address [facility]/ZIP Co de Phone Number [facility] [address] [place] [phone] * (ABNORMAL) C-reactive Protein (01/08/2024 11:44 AM EST) Pathologist [facility] C Reactive Protein 8.21(H) < or = 0.50 mg/dL [facility] 01/08/2024 11:4 4 AM EST 01/08/2024 11:47 AM EST Generic External Data Provider LAB BLOOD ORDERAB LES Final Result Performing Organization Address [facility] Co de Phone Number [facility] [address] [place] [phone] * (ABNORMAL) Comprehensive Metabolic Panel (01/08/2024 11:44 AM EST) Pathologist [facility] Sodium 143 135 - 145 mmol/L [facility] Potassium 3.2(L) 3.3 - 5.1 mmol/L [facility] Chloride 103 96 - 108 mmol/L [facility] Carbon Dioxide 27 22 - 29 mmol/L [facility] Anion Gap 16 12 - 20 [facility] Urea Nitrogen (BUN) 25(H) 9 - 16 mg/dL [facility] Creatinine, Serum 6.65(HH) 0.5 - 1.4 mg/dL [facility] Comment:Critical value for t est(s): MADIHA Results called to and readback by: DEVON Person calling: NAVDEEP Date:01/08/24Time:1222 Creatinine Clr Calc Pharmacy 9.9 [facility] Comment:eGFR (calculated fro m the MDRD study equation) and eCrCl(calculated from the Cockcroft-Gault equation) are based ondifferent parameters and may not yield comparable results.If eCrCl result is absurd, please check patient'sheight/weight. Estimated Glomerular Filt Rate 8 [facility] Comment:NOTE: For -Am erican individuals, multiply the result by 1.210.Chronic Kidney Disease: Estimated GFR < 60 mL/min/1.99d0Qlutyn Kidney Disease: Estimated GFR < 15 mL/min/1.73m2 Glucose 254(H) 60 - 115 mg/dL [facility] Calcium 8.7 8.4 - 10.2 mg/dL [facility] Bilirubin, Total 0.5 0.0 - 1.0 mg/dL [facility] Aspartate Amino Transferase 19 5 - 37 U/L [facility] Alanine Aminotransferase 18 0 - 40 U/L [facility] Total Protein 7.4 6.5 - 8.0 g/dL [facility] Albumin Level 3.9 3.5 - 5.0 g/dL [facility] Alkaline Phosphatase 146(H) 39 - 117 U/L [facility] 01/08/2024 11:4 4 AM EST 01/08/2024 11:47 AM EST us Generic External Data Provider LAB BLOOD ORDERAB LES Final Result [facility] [address] [place], [place] [phone] * XR Foot 1-2 Views Right (01/08/2024 11:35 AM EST) Anatomical Region Laterality Modality Lower Extremities, Foot Right Radiogra phic Imaging 01/08/2024 11:3 5 AM EST Narrative 01/08/2024 2:26 PM EST ? [facility] ?[address] ?[place] [address] ?XRay Report ? Signed ? Patient: Frank,Bong ?MR#: [id number] ?? [id number] ? : 1955 ?Acct:[id number] ? Age/Sex: 68 / M ?ADM Date: 01/08/24 ? Loc: HO.ED ? Attending Dr: ? Ordering Physician: Gavino Dave ?? Date of Service: 01/08/24 ?? Procedure(s): XR foot RT 2V ?? Accession Number(s): [id number] ? cc: Gavino Dave; Jade Lewis MD ? EXAMINATION: ?? XR FOOT, RIGHT ? CLINICAL INFORMATION: ?? First and third toe redness ? COMPARISON: ?? None available. ? TECHNIQUE: ?? AP, lateral, and oblique views of the right foot. ? FINDINGS: ?? The bones and soft tissues are normal. No fracture. Alignment is ?? anatomic. Joint spaces are maintained. Vascular calcifications seen in ?? the soft tissues ? XR/XR foot RT 2V ?? IMPRESSION: ?? No acute abnormalities. ? Electronically signed by: ??Delvis Roldan MD ??01/08/2024 02:24 PM EST RP ? Dictated By: ?Delvis Roldan MD ? Signed By: ?<Electronically signed by Delvis Roldan MD in OV> ? 01/08/24 1424 ? DD/ 1135 ? TD/TT: 01/08/24 1225 ? Purchasing Specialist: ? Procedure Note Silvia Blackwood - 01/08/[address] [address] XRay Report Signed Patient: Beau Marie AMR#: [id number] : 7Acct:[id number] Age/Sex: 68 / MADM Date: 01/08/24 Loc: HO.ED Attending Dr: Ordering Physician: Gavino Dave Date of Service: 01/08/24 Procedure(s): XR foot RT 2V Accession Number(s): [id number] cc: Gavino Dave; Jade Lewis MD EXAMINATION: XR FOOT, RIGHT CLINICAL INFORMATION: First and third toe redness COMPARISON: None available. TECHNIQUE: AP, lateral, and oblique views of the right foot. FINDINGS: The bones and soft tissues are normal. No fracture. Alignment is anatomic. Joint spaces are maintained. Vascular calcifications seen in the soft tissues XR/XR foot RT 2V IMPRESSION: No acute abnormalities. Electronically signed by: Delvis Roldan MD 01/08/2024 02:24 PM EST Dictated By: Delvis Roldan MD Signed By: <Electronically signed by Delvis Roldan MD in OV> 01/08/24 1424 DD/ 1135 TD/TT: 01/08/24 1225 Purchasing Specialist: [facility] External Provider IMG XR PROCEDURES Edited Result - Final from Last 3 Months Insurance [employer]
--- OUTSIDE RECORDS SUMMARY | 2024-04-05 13:03 | XMS_ITS | Encounter Summary ---
Author Organization [facility], Address [address] [place] [address] Phone Care Team Providers Care Instructor Nurse Name Role Phone Jade Lewis MD Primary Care Provider + [phone] Reason for Visit * Reason Comments Med Refill Encounter Details Date Type Department Care Team (Late st Contact Info) Description 06/13/2023 Refill [facility] [address] [place] [phone] Malcolm Taylor MD [address] [place] [id number] Social History Tobacco Use Types Packs/Day Years [...] on file documented as of this encounter Miscellaneous Notes * Telephone Encounter - Karina Putnam - 06/14/2023 4:13 PM EDT d documented in this encounter Plan of Treatment Not on file documented as of this encounter Visit Diagnoses Not on filedocumented in this encounter Care Teams Instructor Nurse Relationship Specialty Start Date End Date Jade Lewis MD [address] [place] [address] PCP - General Internal Medicine 04/25/22 documented as of this encounter
--- OUTSIDE RECORDS SUMMARY | 2024-04-05 13:03 | XMS_ITS | Encounter Summary ---
Author Organization [facility] Address [address] [place] [address] Care Team Providers Care Band Teacher Name Role Phone Cass Turcios MD Primary Care Provider [phone] Encounter Details Date Type Department Care Team (Late st Contact Info) Description 04/02/2024 Lab Requisition [facility] - Main Lab [address] [facility] [place] [address] Cass Turcios MD [address] [place] [address] End stage renal disease (CMS/HCC) Social History Tobacco Use Types Packs/Day Years Used Date Smoking Tobacco: Former Cigarettes Smokeless Tobacco: Never Alcohol Use Standard Drinks/Week Comments Not Currently [...] your loved ones. For example, child care center administrator or elderly care for an older adult? [...] file Not on file Not on file documented as of this encounter Plan of Treatment Not on file documented as of this encounter Procedures Procedure Name Priority Date/Time Associated Diagnosis Comments COMPLETE BLOOD COUNT Routine 04/02/2024 5:24 AM EST End stage renal disease (CMS/HCC) BASIC METABOLIC PANEL Routine 04/02/2024 5:24 AM EST End stage renal disease (CMS/HCC) documented in this encounter Results * (ABNORMAL) Basic metabolic panel (04/02/2024 5:24 AM EST) Sodium 135 133 - 145 mmol/L LAB CHEMISTRY METHOD 04/02/2024 10:35 AM [facility] Potassium 5.6(H) 3.5 - 5.5 mmol/L LAB CHEMISTRY METHOD 04/02/2024 10:35 AM [facility] Chloride 95(L) 96 - 110 mmol/L LAB CHEMISTRY METHOD 04/02/2024 10:35 AM [facility] CO2 32 21 - 32 mmol/L LAB CHEMISTRY METHOD 04/02/2024 10:35 AM [facility] Anion Gap 8 3 - 11 LAB CHEMISTRY METHOD 04/02/2024 10:35 AM [facility] Glucose 32(LL) 70 - 100 mg/dL LAB CHEMISTRY METHOD 04/02/2024 10:35 AM [facility] BUN 50(H) 5 - 25 mg/dL LAB CHEMISTRY METHOD 04/02/2024 10:35 AM [facility] Creatinine 7.72(H) 0.70 - 1.30 mg/dL LAB CHEMISTRY METHOD 04/02/2024 10:35 AM [facility] eGFR 7(L) >=60 mL/min/1. 73m2 LAB CHEMISTRY METHOD 04/02/2024 10:35 AM [facility] Comment:Calculation based on the??Chronic Kidney Disease Epidemiology Collaboration (CKD-EPI) equation refit??without adjustment for race. BUN/Creatinine Ratio 6.5 LAB CHEMISTRY METHOD 04/02/2024 10:35 AM [facility] Calcium 8.3(L) 8.5 - 10.5 mg/dL LAB CHEMISTRY METHOD 04/02/2024 10:35 AM [facility] Blood Venous blood specimen / Unknown Venipuncture / Unknown 04/02/2024 5:24 AM EST 04/02/2024 8:48 AM EST Cass Turcios MD LAB BLOOD ORDERABLES [facility] [address] [place] [address], * (ABNORMAL) Complete blood count (04/02/2024 5:24 AM EST) WBC 26.2(H) 4.8 - 10.8 K/mcL LAB HEMETOLOGY METHOD 04/02/2024 9:47 AM [facility] RBC 4.10(L) 4.50 - 5.50 M/mcL LAB HEMETOLOGY METHOD 04/02/2024 9:47 AM [facility] Hemoglobin 9.4(L) 13.5 - 17.5 g/dL LAB HEMETOLOGY METHOD 04/02/2024 9:47 AM [facility] Hematocrit 31.2(L) 42.0 - 54.0 % LAB HEMETOLOGY METHOD 04/02/2024 9:47 AM [facility] MCV 76.1(L) 79.0 - 98.0 FL LAB HEMETOLOGY METHOD 04/02/2024 9:47 AM [facility] MCH 22.9(L) 27.0 - 32.0 pcg LAB HEMETOLOGY METHOD 04/02/2024 9:47 AM [facility] MCHC 30.1(L) 32.0 - 37.0 g/dL LAB HEMETOLOGY METHOD 04/02/2024 9:47 AM [facility] RDW 17.1(H) 11.0 - 15.0 % LAB HEMETOLOGY METHOD 04/02/2024 9:47 AM [facility] Platelets 349 130 - 400 K/mcL LAB HEMETOLOGY METHOD 04/02/2024 9:47 AM [facility] MPV 11.4(H) 7.0 - 11.0 FL LAB HEMETOLOGY METHOD 04/02/2024 9:47 AM EST [facility] NRBC 0.0 <1.0 % LAB HEMETOLOGY METHOD 04/02/2024 9:47 AM EST [facility] NRBC Absolute 0.00 <0.10 K/mcL LAB HEMETOLOGY METHOD 04/02/2024 9:47 AM EST [facility] Blood Venous blood specimen / Unknown Venipuncture / Unknown 04/02/2024 5:24 AM EST 04/02/2024 8:48 AM EST Cass Turcios MD LAB BLOOD ORDERABLES [facility] [address] [place] [address], documented in this encounter Visit Diagnoses Diagnosis End stage renal disease ([facility]) End stage renal disease documented in this encounter Care Teams Band Teacher Relationship Specialty Start Date End Date Cass Turcios MD [address] [place] [address] [address] [place] [address] PCP - General Geriatric Medicine 04/02/24 documented as of this encounter
--- OUTSIDE RECORDS SUMMARY | 2024-04-05 13:03 | XMS_ITS | Encounter Summary ---
Author Organization [facility], Address [address] [place] [address] Phone Care Team Providers Care Archery Equipment Repairer Name Role Phone Jade Lewis MD Primary Care Provider + [phone] Encounter Details Date Type Department Care Team (Late st Contact Info) Description 03/13/2024 Orders Only [facility] [address] [place] [address] Car Mcdonald MD [address] [place] [address] [place] [phone] Social History Tobacco Use Types Packs/Day Years [...] Procedure Name Priority Date/Time Associated Diagnosis Comments HD KINETICS Routine 03/13/2024 POST CHEMISTRY Routine 03/13/2024 HEMATOLOGY Routine 03/13/2024 CHEMISTRY Routine 03/13/2024 documented in this encounter Results * HD KINETICS (03/13/2024) % Urea Reduction 65 65 - 80 % [facility] 03/13/2024 03/14/2024 10: 08 AM EST Narrative [facility] - 03/15/2024 Unless otherwise specified, test(s) performed at: [facility], [address] [place] [address] COMPUTER SYSTEMS ANALYST: Homero Garcia M.D. For any questions, please call customer service at FREQUENCY:OTHER Resulting Agency Comment Specimen source: Plasma Car Mcdonald MD LAB BLOOD ORDERABLES Final Re sult Performing Organization Address [facility] [place] de Phone Number Proviation See order comments or contact performing lab Unknown, [place] * (ABNORMAL) [facility] Chemistry (03/13/2024) BUN 79(H) 6 - 19 mg/dL [facility] 03/13/2024 03/14/2024 12: 15 PM EST Narrative [facility] - 03/15/2024 Unless otherwise specified, test(s) performed at: [facility], [address] [place], [place] [id number] COMPUTER SYSTEMS ANALYST: Homero Garcia M.D. For any questions, please call customer service at FREQUENCY:OTHER Resulting Agency Comment Specimen source: Serum Car Mcdonald MD LAB BLOOD ORDERABLES Final Re sult Performing Organization Address [facility] Co de Phone Number Proviation See order comments or contact performing lab Unknown, [place] * (ABNORMAL) POST CHEMISTRY (03/13/2024) BUN Post Dialysis 28(H) 6 - 19 mg/dL [facility] 03/13/2024 03/14/2024 10: 08 AM EST Narrative [facility] - 03/14/2024 Unless otherwise specified, test(s) performed at: [facility], [address] [place] [address] COMPUTER SYSTEMS ANALYST: Homero Garcia M.D. For any questions, please call customer service at FREQUENCY:OTHER Resulting Agency Comment Specimen source: Plasma Car Mcdonald MD LAB BLOOD ORDERABLES Final Re sult Performing Organization Address [facility] Co de Phone Number [facility] [employer] See order comments or contact performing lab Unknown, [place] * (ABNORMAL) HEMATOLOGY (03/13/2024) Hemoglobin 10.7(L) 14.0 - 18.0 g/dL [facility] Hemoglobin x 3 32.1(L) 42.0 - 54.0 % [facility] 03/13/2024 03/14/2024 10: 41 AM EST Narrative [facility] - 03/14/2024 Unless otherwise specified, test(s) performed at: [facility], [address] [place] [address] COMPUTER SYSTEMS ANALYST: Homero Garcia M.D. For any questions, please call customer service at FREQUENCY:OTHER Resulting Agency Comment Specimen source: Blood Car Mcdonald MD LAB BLOOD ORDERABLES Final Re sult Performing Organization Address [facility] Co de Phone Number [employer] See order comments or contact performing lab Unknown, [place] documented in this encounter Visit Diagnoses Not on filedocumented in this encounter Care Teams Archery Equipment Repairer Relationship Specialty Start Date End Date Jade Lewis MD [address] [place] [address] PCP - General Internal Medicine 04/25/22 documented as of this encounter
--- OUTSIDE RECORDS SUMMARY | 2024-04-05 13:03 | XMS_ITS | Encounter Summary ---
Author Organization [facility] Address [address] [place] [address] Care Team Providers Care Senior Quality Analyst Name Role Phone Physician, Pcp Unknown Primary Care Provider Krissy vailable Reason for Visit * Reason Comments Altered Mental Status * Auth/Cert Specialty Diagnoses / Procedures Referred By Melany rayo Referred To Contact Diagnoses Uremia Procedures [facility] IP/OBS CARE INITIAL MODERATE LEVEL PER DAY Brenda Cobian MD [address] [place] [address] [facility] [address] [place] [address] Referral ID Status Reason Start Date Expiration Date Visits Re quested Visits Authorized [id number] 1 1 Encounter Details Date Type Department Care Team (Latest Contact Info) Description 03/25/2024 7:29 AM EST - 03/27/2024 6:55 PM [facility] En[facility] [address] [place] [address] Noman Conteh MD [address] [place] [address] Brenda Cobian MD [address] [place] [address] Marion Hernandez MD [address] [place] [address] Acute kidney injury superimposed on chronic kidney disease (CMS/HCC) (Primary Dx); Hyperkalemia; Urinary tract infection without hematuria, site unspecified Discharge Disposition: Nursing Home Facility Social History Tobacco Use Types Packs/Day Years [...] care for your loved ones. For example, exceptional children teacher assistant or elderly care for an older adult? [...] on file documented as of this encounter Last Filed Vital Signs Vital Sign Reading [...] Mass Index 25.44 03/25/2024 7:41 AM EST documented in this encounter Discharge Summaries * Srinivasa Sherman NP - 03/27/2024 11:24 AM EST Images from the original note were not included. GARVIN DISCHARGE SUMMARY Patient Information Beau Frank : 1955 [68 y.o.] Admitting Provider Brenda Cobian MD Discharge Provider Srinivasa Sherman NP, Marion Hernandez MD Primary Care Physician Pcp Unknown Physician Admission Date 03/25/2024 Discharge Date 03/27/2024 Summary of Hospital Problems Presenting Chief Complaint: Altered Mental Status Primary Discharge Diagnosis: Acute Encephalopathy Suspected Opioid oversedation Hyperkalemia Metabolic Acidosis ESRD on HD MWF UTI Hypomagnesemia Gout Flare Secondary Discharge Diagnosis: Dry Gangrene toe of right foot S/P Recent Transmetatarsal amputation Diabetes Mellitus Type 2 insulin dependent Hypertension Hyperlipidemia COPD Gait instability Anemia of CKD BMI is 25 Discharge Destination: Home with VNA services Code Status at Discharge: FULL CODE Inpatient Consultants: Seen by Dr. Escobedo Please see note and recommendations below: LABS Results from last 7 days Lab Units 03/25/24 0817 03/25/24 0509 WBC AUTO K/mcL 14.1* 14.1* HEMOGLOBIN g/dL 10.6* 10.5* HEMATOCRIT % 35.8* 35.9* MCV FL 76.5* 77.7* PLATELETS K/mcL 247 254 Results from last 7 days Lab Units 03/26/24 0650 03/25/24 1856 03/25/24 1201 CREATININE mg/dL 9.29* 7.11* 13.30* BUN mg/dL 72* 54* 112* SODIUM mmol/L 134 134 135 POTASSIUM mmol/L 5.1 3.9 6.4* CHLORIDE mmol/L 97 98 102 CO2 mmol/L 23 25 17* No results found for: PHOS , [id number] , PTH , PUR No results found for: IRON , TIBC , FERRITIN No results found for: COLORUA , CLARITYUA , SPECGRAVUA , PHUA , PROTUA , GLUCOSEUA , KETONESUA , BILIRUBINUA , BLOODUA , UROBILINOGUA , NITRITEUA IMPRESSION and PLAN ESRD Anemia S/p HD yesterday Known ESRD on HD at [facility] HD[facility] MWF via PC Followed by Kidney care Nephrogenic anemia REC HD tomorrow Renal diet P binders No need for NAYE Dorian Escobedo MD Pertinent Imaging Findings: LABS HEMATOLOGY Lab Results Component Value Date WBC 14.1 (H) 03/25/2024 HGB 10.6 (L) 03/25/2024 HCT 35.8 (L) 03/25/2024 MCV 76.5 (L) 03/25/2024 PLT 247 03/25/2024 CHEMISTRY Lab Results Component Value Date GLUCOSE 160 (H) 03/26/2024 NA 134 03/26/2024 K 5.1 03/26/2024 CO2 23 03/26/2024 CL 97 03/26/2024 BUN 72 (H) 03/26/2024 CREATININE 9.29 (H) 03/26/2024 EGFR 6 (L) 03/26/2024 CALCIUM 8.1 (L) 03/26/2024 MG 1.9 03/25/2024 ANIONGAP 14 (H) 03/26/2024 Imaging: XR Chest 1 View Narrative: HISTORY: The patient is a 68-year-old male [...] and/or infiltrate. The left lung remains clear. Impression: Small right pleural effusion with underlying atelectasis and/or infiltrate. The left lung remains clear. Cardiomegaly, new since 08/10/2020. Code 30785 -------- FINAL REPORT -------- Dictated By: Daren Sol Dictated Date: 03/25/2024 08:45 ET Assigned Physician: Daren Sol Reviewed and Electronically Signed By: Daren Sol Signed Date: 03/25/2024 08:46 ET Workstation ID: [id number] Transcribed By: Self Edit Transcribed Date: 03/25/2024 08:45 ET Procedures Performed: None Please see chief complaint and HPI from history and physical by Radha MONTERO below: CHIEF COMPLAINT :Mental status change HISTORY OF PRESENT ILLNESS This is a 68 year old puerto rican speaking male with past medical history significant for ESRD on hemodialysis MWF, diabetes mellitus requiring insulin, hypertension, hyperlipidemia, asthma/COPD on chronic supplemental oxygen, gout, amongst others, who presents emergency room from dialysis center. Patient is Arabic-speaking only requiring use of electronic per diem interpreter Alicia #[id number], limiting H&P. Patient is altered and does not provide much history. He denies symptoms at this time including shortness of breath, pain, fevers, chills. Per ED documentation patient presented from dialysis center with mental status change and low blood pressure. Of note he recently underwent toe amputation in 2023. Upon H&P patient is Afebrile, heart rate 65, respiratory rate 18, blood pressure 152/94, oxygensaturation 97% on 2 L supplemental O2. Labs reveal WBC 14.1 with H&H 10.5/35.9, potassium 6.8, CO2 17 with anion gap 18, BUN 115 with creatinine 13. UA revealing moderate bacteria, 80 WBC, 10 RBC, moderate blood, 250 glucose, positive nitrite and trace leukocytes, though 100 epithelial cells. Chest x-ray imaging performed revealing small right pleural effusion with underlying atelectasis and/or infiltrate. The lung remains clear. Cardiomegaly. See full report for additional details. Nephrology was consulted and care subsequent transferred to medical service for further evaluation and treatment. Hospital Course Summary Acute encephalopathy Due to suspected overdose versus oversedation in the setting of opiate use Family reports increased somnolence after initiation of Percocet use Received Narcan in emergency room with increased alertness Urine drug screen pending Consultation placed to nephrology, appreciate input Plan to undergo hemodialysis tomorrow Urinary tract infection may also be contributing to acute encephalopathy Resolved Patient is awake and alert this am PT evaluation pending 2. Hyperkalemia Metabolic acidosis Potassium initially 6.8 with improvement to 5.1 this am S/P hemodialysis today Potassium this am is 3.8 Continue to monitor closely Repeat BMP in am Patient will undergo hemodialysis tomorrow 3. ESRD on hemodialysis Seen by Dr. Escobedo ESRD on HD MW. Plan to undergo hemodialysis tomorrow 03/27/2024 Continue home Velphoro Continue Renal diet 4. Urinary tract infection UA revealing: Moderate bacteria, 10 RBC, 80 WBC, trace leukocytes and positive nitrite, though 100 squamous cells S/P IV ceftriaxone Urine culture is pending Continue Cefpodoxime 200 mg Daily (renal dose) for 10 days 5. Diabetes mellitus Continue Yyjfq-fy-wjub every 4 hours with low-dose insulin sliding scale POC reviewed 95, 225, and 160 6. Dry Gangrene Toes to Right foot Transmetatarsal amputation Had hospitalization for dry gangreen of the toes of right foot at [facility] in February No surgical intervention was performed at that time Recently underwent amputation of toes on right foot (unclear when) D/C Oxycodone Cautiously continue Lyrica Continue PRN Tylenol Continue Lidoderm patch daily 7. Hypertension Continue furosemide, doxazosin, hydralazine, and losartan 8. Hyperlipidemia Continue statin 9. COPD History of COPD without acute exacerbation Continue home Trelegy Ellipta and as needed albuterol 10. Gait instability PT evaluation 11. Anemia of CKD H and H stable 10 and 35 12. BMI is 25 13. Hypomagnesemia Mag level low this am 1.2 Given 4 grams IV magnesium today 14. Acute Gout Flare Continue prednisone taper as described above 15. FULL CODE Follow-Up Instructions and Recommendations Follow up with PCP in one week Continue Hemodialysis on Mondays, Wednesdays, and Fridays as outpatient Discharge Medications Your medication list START taking these medications Instructions Last Dose Given Next Dose Due acetaminophen 500 mg tablet Commonly known as: TYLENOL Take 2 tablets (1,000 mg total) by mouth every 6 (six) hours if needed for mild pain for up to 10 days. cefpodoxime 200 mg tablet Commonly known as: VANTIN Take 1 tablet (200 mg total) by mouth 1 (one) time each day for 10 days. predniSONE 10 mg tablet Commonly known as: DELTASONE Start taking on: March 27, 2024 Take 2 tablets (20 mg total) by mouth 1 (one) time each day for 5 days, THEN 1 tablet (10 mg total)1 (one) time each day for 5 days. CONTINUE taking these medications Instructions Last Dose Given Next Dose Due allopurinoL 100 mg tablet Commonly known as: ZYLOPRIM Take 1 tablet (100 mg total) by mouth 3 (three) times a week. After dialysis atorvastatin 40 mg tablet Commonly known as: LIPITOR Take 1 tablet (40 mg total) by mouth daily. Marion Low Dose Aspirin 81 mg EC tablet Generic drug: aspirin Take 1 tablet (81 mg total) by mouth daily. doxazosin 4 mg tablet Commonly known as: CARDURA Take 1 tablet (4 mg total) by mouth at bedtime. at bedtime furosemide 80 mg tablet Commonly known as: LASIX Take 1 tablet (80 mg total) by mouth 1 (one) time each day. hydrALAZINE 25 mg tablet Commonly known as: APRESOLINE Take 1 tablet (25 mg total) by mouth 3 (three) times a day. insulin lispro 100 unit/mL injection Inject 2 Units under the skin 3 (three) times a day before meals. 2-10 units subcutaneously three times daily ipratropium-albuteroL 0.5-2.5 mg/3 mL nebulizer solution Commonly known as: DUONEB Take 3 mL by nebulization 4 (four) times a day if needed for wheezing or shortness of breath. Lantus Solostar U-100 Insulin 100 unit/mL (3 mL) injection pen Generic drug: insulin glargine Inject 22 Units under the skin at bedtime. losartan 25 mg tablet Commonly known as: COZAAR Take 1 tablet (25 mg total) by mouth 1 (one) time each day. omeprazole [address] capsule Commonly known as: PriLOSEC Take 1 capsule (20 mg total) by mouth 1 (one) time each day before breakfast. pregabalin 75 mg capsule Commonly known as: LYRICA Take 1 capsule (75 mg total) by mouth 1 (one) time each day. Max Daily Amount: 75 mg Stimulant Laxative Plus 8.6-50 mg per tablet Generic drug: senna-docusate Take 1 tablet by mouth 1 (one) time each day if needed for constipation. Trelegy Ellipta 200-62.5-25 mcg inhaler Generic drug: fhxpujfzgwr-jovnpvonljrb-yuanigcdcf Inhale 1 puff (200 mcg total) by mouth 1 (one) time each day. Ventolin HFA 90 mcg/actuation inhaler Generic drug: albuterol HFA Inhale 2 puffs by mouth every 4 (four) hours if needed for shortness of breath. STOP taking these medications oxyCODONE 5 mg immediate release tablet Commonly known as: ROXICODONE Where to Get Your Medications Information about where to get these medications is not yet available Ask your nurse or doctor about these medications acetaminophen 500 mg tablet cefpodoxime 200 mg tablet predniSONE 10 mg tablet Physical Exam at time of Discharge Physical Exam General Exam: Appearing older than stated age, easily falling asleep during interview and exam, requiring frequent wake ups. Calm, minimally cooperative due to increased fatigue, no apparent distress. Skin Exam: Warm, dry, intact, no diaphoresis. No rashes noted. Capillary refill < 3 seconds. Eye Exam: Pupils are small though PERRLA HEENT exam: Head is atraumatic, normocephalic. Oral mucosa dry. No oropharyngeal candidiasis. No trismus, drooling, or difficulty handling secretions. Neck Exam: Soft/supple, full range of motion, no nuchal rigidity Respiratory Exam: Decreased breath sounds to auscultation bilaterally, no wheezes, rales or rhonchi. No tripoding, retractions or increased work of breathing. Cardiovascular Exam: Regular rate and rhythm. Gastrointestinal Exam: No pulsations or visible masses, nondistended. Hypoactive bowel sounds. Abdomen is soft, nontender, without rebound/guarding. No peritoneal signs appreciated. Musculoskeletal Exam: No calf tenderness or asymmetry. Moving all extremities at the major joint spaces without difficulty. Neurological Exam: Alert and oriented X0. Frequently falling asleep, not able to follow commands. Vitals Visit Vitals BP (!) 148/85 Pulse 67 Temp 36.6 ??C (97.9 ??F) (Temporal) Resp 18 Temp (24hrs), Av.6 ??C (97.8 ??F), Min:36.2 ??C (97.2 ??F), Max:36.9 ??C (98.4 ??F) Body mass index is 25.44 kg/m??. No results found for: PTWT , PTHT Greater than 45 minutes spent on day of discharge. Discharge planning was discussed with Dr. David BENNETT who agrees with the above assessment and plan. Associated attestation - Marion Hernandez MD - 03/27/2024 4:46 PM EST This is a split/shared visit with Srinivasa Sherman NP. I personally performed the medical decision making (MDM) for the care of this patient on 03/27/24 as documented below Patient seen and examined at the bedside, I independently interviewed the patient, performed physical examination, reviewed pertinent studies and performed clinical decision making. Care reviewed with Srinivasa Sherman NP, plan as below. Here with mental status change, combination of uremia/opioid medications. Much improved after dialysis and holding opioids. Reportedly recent admission at [facility] for transmetatarsal amputation of the right foot, surgery approximately 1 week prior to this presentation. Right wrist gout flare suspected, improved today dramatically with small dose of steroids. Short course planned. Medically stable for DC. Rehab planned. Marion Hernandez MD 03/27/24 4:42 PM EST documented in this encounter Medications at Time of Discharge Medication Sig Dispensed Refills Start Date End Date acetaminophen (TYLENOL) 500 mg tablet Take 2 tablets (1,000 mg total) by mouth every 6 (six) hours if needed for mild pain for up to 10 days. 30 tablet 03/27/2024 04/06/2024 allopurinoL (ZYLOPRIM) 100 mg tablet Take 1 tablet (100 mg total) by mouth 3 (three) times a week. After dialysis 03/08/2024 atorvastatin (LIPITOR) 40 mg tablet Take 1 tablet (40 mg total) by mouth daily. 10/22/2020 Marion Low Dose Aspirin 81 mg EC tablet Take 1 tablet (81 mg total) by mouth daily. 10/22/2020 cefpodoxime (VANTIN) 200 mg tablet Take 1 tablet (200 mg total) by mouth 1 (one) time each day for 10 days. 10 each 03/27/2024 04/06/2024 doxazosin (CARDURA) 4 mg tablet Take 1 tablet (4 mg total) by mouth at bedtime. at bedtime 03/22/2024 furosemide (LASIX) 80 mg tablet Take 1 tablet (80 mg total) by mouth 1 (one) time each day. 02/24/2024 hydrALAZINE (APRESOLINE) 25 mg tablet Take 1 tablet (25 mg total) by mouth 3 (three) times a day. 01/01/2024 insulin lispro 100 unit/mL injection Inject 2 Units under the skin 3 (three) times a day before meals. 2-10 units subcutaneously three times daily 08/29/2023 ipratropium-albutero L (DUONEB) 0.5-2.5 mg/3 mL nebulizer solution Take 3 mL by nebulization 4 (four) times a day if needed for wheezing or shortness of breath. 01/29/2024 Lantus Solostar U-100 Insulin 100 unit/mL (3 mL) injection pen Inject 22 Units under the skin at bedtime. 03/04/2024 lidocaine 4 % patch Apply 1 patch topically 1 (one) time each day. 30 each 03/27/2024 2024 losartan (COZAAR) 25 mg tablet Take 1 tablet (25 mg total) by mouth 1 (one) time each day. omeprazole (PriLOSEC) [address] capsule Take 1 capsule (20 mg total) by mouth 1 (one) time each day before breakfast. 03/08/2024 predniSONE (DELTASONE) 10 mg tablet Take 2 tablets (20 mg total) by mouth 1 (one) time each day for 5 days, THEN 1 tablet (10 mg total) 1 (one) time each day for 5 days. 15 each 03/27/2024 04/06/2024 pregabalin (LYRICA) 75 mg capsule Take 1 capsule (75 mg total) by mouth 1 (one) time each day. Max Daily Amount: 75 mg 02/24/2024 Stimulant Laxative Plus 8.6-50 mg per tablet Take 1 tablet by mouth 1 (one) time each day if needed for constipation. 02/21/2024 Trelegy Ellipta 200-62.5-25 mcg inhaler Inhale 1 puff (200 mcg total) by mouth 1 (one) time each day. Ventolin HFA 90 mcg/actuation inhaler Inhale 2 puffs by mouth every 4 (four) hours if needed for shortness of breath. documented as of this encounter Ordered Prescriptions Prescription Sig Dispensed Refills Start Date End Da te lidocaine 4 % patch Apply 1 patch topically 1 (one) time each day. 30 each 03/27/2024 2024 predniSONE (DELTASONE) 10 mg tablet Take 2 tablets (20 mg total) by mouth 1 (one) time each day for 5 days, THEN 1 tablet (10 mg total) 1 (one) time each day for 5 days. 15 each 03/27/2024 04/06/2024 cefpodoxime (VANTIN) 200 mg tablet Take 1 tablet (200 mg total) by mouth 1 (one) time each day for 10 days. 10 each 03/27/2024 04/06/2024 acetaminophen (TYLENOL) 500 mg tablet Take 2 tablets (1,000 mg total) by mouth every 6 (six) hours if needed for mild pain for up to 10 days. 30 tablet 03/27/2024 04/06/2024 cefpodoxime (VANTIN) 200 mg tablet Take 1 tablet (200 mg total) by mouth 1 (one) time each day for 10 days. 03/27/2024 03/27/2024 acetaminophen (TYLENOL) 500 mg tablet Take 2 tablets (1,000 mg total) by mouth every 6 (six) hours if needed for mild pain for up to 10 days. 03/27/2024 03/27/2024 predniSONE (DELTASONE) 10 mg tablet Take 2 tablets (20 mg total) by mouth 1 (one) time each day for 5 days, THEN 1 tablet (10 mg total) 1 (one) time each day for 5 days. 03/27/2024 03/27/2024 documented in this encounter Discharge Disposition Disposition Code Departure Means Destination Comment s Nursing Home Facility documented in this encounter Progress Notes * Srinivasa Sherman NP - 03/27/2024 6:55 PM EST [facility] Provider Response Note PATIENT: BEAU MARIE : 1955 ADMIT DATE: 03/25/2024 11:46 AM DISCH DATE: 03/27/2024 6:55 PM RESPONDING PROVIDER #: [id number] PROVIDER RESPONSE TEXT: Unknown QUERY TEXT: Encephalopathy is documented in the medical record. Please specify the type. H&P 03/25/2024 Acute encephalopathy ?Opiate overdose versus oversedation in the setting of opiate use -Bring patient into the hospital, monitor vital signs, ins and outs peripheral protocol -Initially presented to hemodialysis with altered, increased fatigue/lethargy with hypotension -Family reports increased somnolence after initiation of Percocet use -Received Narcan in emergency room with increased alertness -Urine drug screen pending at this time -Consultation placed to nephrology, appreciate input. Plan to undergo hemodialysis today -Urinary tract infection may also be contributing to acute encephalopathy -Morning labs: CBC, BMP, mag Progress Notes 03/26/2024 Acute encephalopathy Due to suspected overdose versus oversedation in the setting of opiate use Family reports increased somnolence after initiation of Percocet use Received Narcan in emergency room with increased alertness Urine drug screen pending Consultation placed to nephrology, appreciate input Plan to undergo hemodialysis tomorrow Urinary tract infection may also be contributing to acute encephalopathy Contact: The patient's clinical indicators include: Options provided: -- Due to medication(s) or drugs, Please specify the medication or drug(s) in the box. -- Metabolic -- Toxic metabolic -- Other - I will add my own diagnosis -- Disagree - Not applicable / Not valid Query created by: Scarlet Wright on 03/28/2024 9:26 AM Electronically signed by: SRINIVASA SHERMAN NP 03/28/2024 1:14 PM * Dara Matos RN - 03/27/2024 4:07 PM EST 03/27/24 1607 Transportation Transportation at discharge [facility] providing transportation [email or web address] What day is the transport expected? 03/27/24 What time is the transport expected? 1700 Final Discharge Disposition Nursing Home Facility [facility] spoke with Liaison Carissa from [facility] rehab, who confirmed pt was admitted to facility on03/22 and remains a bed hold. [facility] confirmed pt's son Nestor Marie [phone] is HCP and has faxed a copy to upload. [facility] spoke with pt and son Nestor and confirmed pt is ready for d/c and will be returning to facility. Transportation booked for 1700 today. left for HCP with transfer time. [facility] updated pt at bedside, with family present, uncle Sp who reported he would also let Nestor (HCP) know time for transport to facility. * Gisela Muir, PT - 03/27/2024 2:[address] [facility] ACUTE CARE PT EVALUATION Beau Frank 1955 Ambulation: Walking Assistance: Minimum assistance Device: Rolling walker Distance Ambulated (ft): (3 steps and 3 steps back Pt placed his RLE on the floor. Pt did better during second walk when pt hopped 4 steps forward and hopped 4 back.) PLOF: Level of [place]: (per son, pt has not started therapy in rehab due to his medical condition.) Lives With: Family (family works daytime so he is alone) Home Living Comments: info not obtained today. Pt came from rehab facility. PT Discharge Recommendation: shelter facility placement Diagnosis: ICD-10-CM ICD-9-CM 1. Acute kidney injury superimposed on chronic kidney disease (CMS/HCC) N17.9 584.9 N18.9 585.9 2. Hyperkalemia E87.5 276.7 3. Urinary tract infection without hematuria, site unspecified N39.0 599.0 Past Medical History: Diagnosis Date COPD (chronic obstructive pulmonary disease) ([facility]) Diabetes mellitus ([facility]) ESRD (end stage renal disease) on dialysis ([facility]) MWF GERD (gastroesophageal reflux disease) Gouty arthritis Hyperlipidemia Hypertension Past Surgical History: Procedure Laterality Date IR DIALYSIS CATH INSERT VASCULAR ACCESS TOE AMPUTATION PT Received On: 03/27/2024 SUBJECTIVE No c/o dizziness PT Time Calculation: PT Time Calculation PT Start Time: 1450 PT Stop Time: 1530 PT Time Calculation (min): 40 min OBJECTIVE Precautions: Precautions Medical Precautions: Fall Risk Safety Interventions: Call montilla within reach, Bed alarm, Side rails up x2 RLE Weight Bearing Status: Non Weight Cognition: Cognition Overall Cognitive Status: Impaired Arousal/Alertness: Delayed responses to stimuli Orientation Level: Disoriented to time, Disoriented to situation Following Commands: Follows one step commands without difficulty Safety Judgment: Decreased awareness of need for assistance, Decreased awareness of need for safety Problem Solving: Assistance required to implement solutions, Assistance required to generate solutions Vital Signs: Oxygen Therapy Oxygen Therapy: None (Room air) Pain Assessment: Pain Assessment: 0-10 Pain Score: 8 Pain Location: Foot Pain Orientation: Right (pt had recent foot surgery in [facility] about a week ago, per son. Appears to be transmet amp R foot) Home Living: Home Living Lives With: Family (family works daytime so he is alone) Home Living Comments: info not obtained today. Pt came from rehab facility. Prior Function: Prior Function Level of [place]: (per son, pt has not started therapy in rehab due to his medical condition.) Functional Assessments: Static Sitting Balance Static Sitting-Level of Assistance: Close supervision Static Sitting-Comment/Number of Minutes: good sitting @ EOB Dynamic Standing Balance Dynamic Standing-Level of Assistance: Minimum assistance Dynamic Standing-Balance: Ambulation Dynamic Standing-Comments: fair with RW hopping on LLE Bed Mobility Sitting to Lying Assistance: Close supervision Lying to Sitting Assistance: Close supervision Transfers Sit to Stand Assistance: Minimum assistance Transfer Comments: PT demonstrated NWB standing with RW prior to pt standing up Ambulation Walking Assistance: Minimum assistance Device: Rolling walker Distance Ambulated (ft): (3 steps and 3 steps back Pt placed his RLE on the floor. Pt did better during second walk when pt hopped 4 steps forward and hopped 4 back.) Comments: PT told him to be NWB for now. PA was present and also agreed to have pt NWB on RLE. Pt had forefoot relief shoe from [facility] however it was too big for him. PA said they have asked for medical records from [facility]. Extremity Assessments: RLE Assessment RLE Assessment: Within Functional Limits LLE Assessment LLE Assessment: Within Functional Limits Education: Education Documentation Mobility Training, taught by Gisela Muir PT at 03/27/2024 2:50 PM. Learner: Patient Readiness: Acceptance Method: Explanation, Demonstration Response: Verbalizes Understanding, Demonstrated Understanding Education Comments No comments found. ASSESSMENT Pt was cooperative and followed commands. Pt came from rehab and would most likely return there to work on mobility. PT Assessment: PT Assessment PT Assessment Results: Decreased strength, Decreased endurance, Impaired balance, Impaired gait, Decreased mobility Prognosis: Good Evaluation/Treatment Tolerance: Patient tolerated treatment well Medical Staff Made Aware: Yes PLAN PT Plan: During acute care stay: PT Plan: Skilled PT PT Frequency: 3 days per week PT Discharge Recommendations: shelter facility placement Goals: Goals: Encounter Problems Encounter Problems (Active) Template: Physical Therapy Problem: PT Short Term Goals Dates: Start: 03/27/24 Goal: PT STG 1 Patient will ambulate NWB RLE with RW 10 ft x 2 CGA Dates: Start: 03/27/24 Expected End: 04/05/24 Goal: PT STG 2 Patient will transfer sit<>stand safely Supervision Dates: Start: 03/27/24 Expected End: 04/05/24 Encounter Problems (Resolved) There are no resolved problems. PT Evaluation Time Entry G RHB Taty PT Evaluation Time Entry PT Evaluation (Moderate) Time Entry: 40 * Dorian Escobedo MD - 03/27/2024 11:47 AM EST Images from the original note were not included. Progress Note CHIEF COMPLAINT F/u SUBJECTIVE Patient seen and examined on HD MEDICAL HISTORY Past Medical History: Diagnosis Date COPD (chronic obstructive pulmonary disease) ([facility]) Diabetes mellitus ([facility]) ESRD (end stage renal disease) on dialysis ([facility]) MWF GERD (gastroesophageal reflux disease) Gouty arthritis Hyperlipidemia Hypertension MEDICATIONS aspirin, 81 mg, oral, Daily atorvastatin, 40 mg, oral, Daily cefTRIAXone, 1 g, intravenous, q24h doxazosin, 4 mg, oral, Nightly furosemide, 80 mg, oral, Daily heparin (porcine), 5,000 Units, subcutaneous, q12h NASREEN insulin lispro, 2-12 Units, subcutaneous, Before meals & nightly ipratropium-albuteroL, 3 mL, nebulization, 4x daily lidocaine, 1 patch, Topical, Daily losartan, 25 mg, oral, Daily magnesium sulfate, 2 g, intravenous, q2h pantoprazole, 40 mg, oral, q AM AC predniSONE, 20 mg, oral, BID with meals pregabalin, 75 mg, oral, Daily PRN medications: albuterol, dextrose 50%, dextrose 50%, dextrose, dextrose, glucagon injection, senna-docusate OBJECTIVE Vital signs in last 24 hours: Visit Vitals BP (!) 152/98 (BP Location: Right arm;Upper, Patient Position: Lying) Pulse 69 Temp 36.4 ??C (97.5 ??F) (Temporal) Resp 18 Intake/Output last 24 hours: Intake/Output Summary (Last 24 hours) at 03/27/2024 1147 Last data filed at 03/27/2024 1139 Gross per 24 hour Intake -- Output 2000 ml Net -2000 ml Weights: Admission Weight: Weight: 74.8 kg (165 lb) Wt Readings from Last 3 Encounters: 03/27/24 71.5 kg (157 lb 9.6 oz) Physical Exam: General: No acute distress HEENT: Normocephalic, atraumatic, anicteric Cardiovascular: S1 S2 normal Respiratory: CTA Gl: soft non-distended Extremities: No cyanosis Neurological: Alert Integumentary: no rash Psych: Calm, cooperative LABS Results from last 7 days Lab Units 03/27/24 0735 03/25/24 0817 03/25/24 0509 WBC AUTO K/mcL 6.4 14.1* 14.1* HEMOGLOBIN g/dL 9.7* 10.6* 10.5* HEMATOCRIT % 32.2* 35.8* 35.9* MCV FL 76.3* 76.5* 77.7* PLATELETS K/mcL 160 247 254 Results from last 7 days Lab Units 03/27/24 0735 03/26/24 0650 03/25/24 1856 CREATININE mg/dL 7.26* 9.29* 7.11* BUN mg/dL 65* 72* 54* SODIUM mmol/L 143 134 134 POTASSIUM mmol/L 3.8 5.1 3.9 CHLORIDE mmol/L 116* 97 98 CO2 mmol/L 15* 23 25 No results found for: PHOS , [id number] , PTH , PUR No results found for: IRON , TIBC , FERRITIN No results found for: COLORUA , CLARITYUA , SPECGRAVUA , PHUA , PROTUA , GLUCOSEUA , KETONESUA , BILIRUBINUA , BLOODUA , UROBILINOGUA , NITRITEUA IMPRESSION and PLAN ESRD Anemia Known ESRD on HD at [facility] HD[facility] via PC Followed by [facility] Nephrogenic anemia REC HD today UF as tolerated Renal diet P binders NAYE per protocol Dorian Escobedo MD * Morro Moncada RN - 03/27/2024 11:45 AM EST 03/27/24 1139 Vital Signs Temp 36.4 ??C (97.5 ??F) Temp Source Temporal Heart Rate 69 Heart Rate Source Monitor Resp 18 BP (!) 152/98 MAP (Calculated) 116 mm Hg BP Method Automatic BP Location Right arm;Upper Patient Position Lying SpO2 100 % Post-Hemodialysis Assessment Rinseback Volume (mL) 150 mL Total Liters Processed (L/min) 85.9 L/min Dialyzer Clearance Clear Duration of Treatment (minutes) 240 minutes Hemodialysis Output (mL) 2000 mL Patient Response to Treatment/Comments pt offered no complaints to tx. Weight (unable to obtain accurate weight) Post HD. Pt completed full 4 hour tx. 2L removed. Pt offered no complaints to tx. Pt's lines reversed d/t machine alarming. BFR had to be reduced to 350 d/t machine alarming. * Vane Lewis, PT - 03/26/2024 3:25 PM EST Therapy session was attempted for Beau Marie by Vane Lewis PT on 03/26/2024. The patient was unable to be seen for the following reason(s): With other team members pt undergoing dressing change for TMA Plan for return visit: As soon as possible * Dara Matos RN - 03/26/2024 3:01 PM EST 03/26/24 1459 Initial Transition Plan Initial Transition Plan Home Health Care (Pt is active with [facility] in the community) Discharge Planning Assistive Devices None Support Systems Children Anticipated Discharge Needs Home Health RN Discipline following for SNF placement Aircraft Electronics Technical OfficerLogistics Engineering Manager Transportation at discharge Other (comment) (Pt's friend is able to transport home when ready) [facility] spoke with pt's listed EC Ashlie as pt is poor historian. 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 Per chart review pt was recently active with [facility], referral placed. * Srinivasa Sherman NP - 03/26/2024 11:50 AM EST Images from the original note were not included. TANYA PROGRESS NOTE Date: 03/26/2024 Author: Srinivasa Sherman NP Patient ID: Beau Marie is a 68 y.o. male : 1955 MR#: [id number] SUBJECTIVE Patient seen and examined in room 221 Awake and alert to person only Confused and disoriented Did not know whereabouts Telemetry monitoring reveals NSR with HR 80's Denies sob or chest pain S/P HD yesterday with 1200cc fluid removed Seen by Dr. Escobedo Case discussed with nursing staff, [facility] Nurse and attending MD Dr. Hernandez Allergies: Patient has no known allergies. Current Medications: aspirin, 81 mg, oral, Daily atorvastatin, 40 mg, oral, Daily [START ON 03/27/2024] cefTRIAXone, 1 g, intravenous, q24h doxazosin, 4 mg, oral, Nightly furosemide, 80 mg, oral, Daily insulin lispro, 2-12 Units, subcutaneous, Before meals & nightly losartan, 25 mg, oral, Daily pantoprazole, 40 mg, oral, q AM AC pregabalin, 75 mg, oral, Daily PRN medications: albuterol, dextrose 50%, dextrose 50%, dextrose, dextrose, glucagon injection, ipratropium-albuteroL, senna-docusate OBJECTIVE Vitals: 03/26/24 0007 03/26/24 0316 03/26/24 0500 03/26/24 0851 BP: 139/59 (!) 149/72 (!) 110/95 BP Location: Right arm Patient Position: Sitting Pulse: 76 70 86 Resp: 18 18 18 Temp: 36.7 ??C (98.1 ??F) 36.3 ??C (97.4 ??F) 36.5 ??C (97.7 ??F) TempSrc: Temporal SpO2: 97% 100% Weight: 71.9 kg (158 lb 9.6 oz) Height: Physical Exam General Exam: Appearing older than stated age, easily falling asleep during interview and exam, requiring frequent wake ups. Calm, minimally cooperative due to increased fatigue, no apparent distress. Skin Exam: Warm, dry, intact, no diaphoresis. No rashes noted. Capillary refill < 3 seconds. Eye Exam: Pupils are small though PERRLA HEENT exam: Head is atraumatic, normocephalic. Oral mucosa dry. No oropharyngeal candidiasis. No trismus, drooling, or difficulty handling secretions. Neck Exam: Soft/supple, full range of motion, no nuchal rigidity Respiratory Exam: Decreased breath sounds to auscultation bilaterally, no wheezes, rales or rhonchi. No tripoding, retractions or increased work of breathing. Cardiovascular Exam: Regular rate and rhythm. Gastrointestinal Exam: No pulsations or visible masses, nondistended. Hypoactive bowel sounds. Abdomen is soft, nontender, without rebound/guarding. No peritoneal signs appreciated. Musculoskeletal Exam: No calf tenderness or asymmetry. Moving all extremities at the major joint spaces without difficulty. Neurological Exam: Alert and oriented X0. Frequently falling asleep, not able to follow commands. LABS HEMATOLOGY Lab Results Component Value Date WBC 14.1 (H) 03/25/2024 HGB 10.6 (L) 03/25/2024 HCT 35.8 (L) 03/25/2024 MCV 76.5 (L) 03/25/2024 PLT 247 03/25/2024 CHEMISTRY Lab Results Component Value Date GLUCOSE 160 (H) 03/26/2024 NA 134 03/26/2024 K 5.1 03/26/2024 CO2 23 03/26/2024 CL 97 03/26/2024 BUN 72 (H) 03/26/2024 CREATININE 9.29 (H) 03/26/2024 EGFR 6 (L) 03/26/2024 CALCIUM 8.1 (L) 03/26/2024 MG 1.9 03/25/2024 ANIONGAP 14 (H) 03/26/2024 Imaging: XR Chest 1 View Narrative: HISTORY: The patient is a 68-year-old male [...] and/or infiltrate. The left lung remains clear. Impression: Small right pleural effusion with underlying atelectasis and/or infiltrate. The left lung remains clear. Cardiomegaly, new since 08/10/2020. Code 14667 -------- FINAL REPORT -------- Dictated By: Daren Sol Dictated Date: 03/25/2024 08:45 ET Assigned Physician: Daren Sol Reviewed and Electronically Signed By: Daren Sol Signed Date: 03/25/2024 08:46 ET Workstation ID: [id number] Transcribed By: Self Edit Transcribed Date: 03/25/2024 08:45 ET ASSESSMENT & PLAN Acute encephalopathy Due to suspected overdose versus oversedation in the setting of opiate use Family reports increased somnolence after initiation of Percocet use Received Narcan in emergency room with increased alertness Urine drug screen pending Consultation placed to nephrology, appreciate input Plan to undergo hemodialysis tomorrow Urinary tract infection may also be contributing to acute encephalopathy 2. Hyperkalemia Metabolic acidosis Potassium initially 6.8 with improvement to 5.1 this am S/P hemodialysis yesterday Continue to monitor closely Repeat BMP in am Patient will undergo hemodialysis tomorrow 3. ESRD on hemodialysis Seen by Dr. Escobedo ESRD on HD MWF. Plan to undergo hemodialysis tomorrow 03/27/2024 Continue home Velphoro Continue Renal diet 4. Urinary tract infection UA revealing: Moderate bacteria, 10 RBC, 80 WBC, trace leukocytes and positive nitrite, though 100 squamous cells Continue IV ceftriaxone Urine culture is pending 5. Diabetes mellitus Continue Mizmy-cb-mikf every 4 hours with low-dose insulin sliding scale POC reviewed 95, 225, and 160 6. Dry Gangrene Toes to Right foot Transmetatarsal amputation Had hospitalization for dry gangreen of the toes of right foot at [facility] in February No surgical intervention was performed at that time Recently underwent amputation of toes on right foot (unclear when) D/C Oxycodone Cautiously continue Lyrica 7. Hypertension Continue furosemide, doxazosin, hydralazine, and losartan 8. Hyperlipidemia Continue statin 9. COPD History of COPD without acute exacerbation Continue home Trelegy Ellipta and as needed albuterol 10. Gait instability PT evaluation 11. DVT prophylaxis Continue Heparin SQ Q 12 hours 12. Anemia of CKD H and H stable 10 and 35 13. BMI is 25 14. FULL CODE My total time spent is 60 minutes I have discussed the above assessment and plan with my attending physician Dr. David BENNETT Who agrees with the above assessment and plan. Associated attestation - Marion Hernandez MD - 03/26/2024 3:49 PM EST This is a split/shared visit with Srinivasa Sherman NP. I personally performed the medical decision making (MDM) for the care of this patient on 03/26/24 as documented below Patient seen and examined at the bedside, I independently interviewed the patient, performed physical examination, reviewed pertinent studies and performed clinical decision making. Care reviewed with Srinivasa Sherman NP, plan as below. Here with AMS, acidosis, hyperkalemia, improved after HD, ? Etiology opioids vs uremia, vs other. Better overall, he feels he is like himself again, R forefoot amputation with francisco, Amputation reportedly on 03/22/24(?) at [facility], also ? c/o R wrist pain, ??Gout flare - trial of small dose prednisone. Reassess in am. Add BC due to leukocytosis on presentation, treating for UTI with ceftriaxone, still makes some urine. Marion Hernandez MD 03/26/24 3:41 PM EST * Dorian Escobedo MD - 03/26/2024 10:57 AM EST Images from the original note were not included. Progress Note CHIEF COMPLAINT F/u SUBJECTIVE Patient seen and examined MEDICAL HISTORY Past Medical History: Diagnosis Date COPD (chronic obstructive pulmonary disease) ([facility]) Diabetes mellitus ([facility]) ESRD (end stage renal disease) on dialysis ([facility]) MWF GERD (gastroesophageal reflux disease) Gouty arthritis Hyperlipidemia Hypertension MEDICATIONS aspirin, 81 mg, oral, Daily atorvastatin, 40 mg, oral, Daily [START ON 03/27/2024] cefTRIAXone, 1 g, intravenous, q24h doxazosin, 4 mg, oral, Nightly furosemide, 80 mg, oral, Daily insulin lispro, 2-12 Units, subcutaneous, Before meals & nightly losartan, 25 mg, oral, Daily pantoprazole, 40 mg, oral, q AM AC pregabalin, 75 mg, oral, Daily PRN medications: albuterol, dextrose 50%, dextrose 50%, dextrose, dextrose, glucagon injection, ipratropium-albuteroL, senna-docusate OBJECTIVE Vital signs in last 24 hours: Visit Vitals BP (!) 110/95 (BP Location: Right arm, Patient Position: Sitting) Pulse 86 Temp 36.5 ??C (97.7 ??F) (Temporal) Resp 18 Intake/Output last 24 hours: Intake/Output Summary (Last 24 hours) at 03/26/2024 1057 Last data filed at 03/25/2024 1810 Gross per 24 hour Intake -- Output 1200 ml Net -1200 ml Weights: Admission Weight: Weight: 74.8 kg (165 lb) Wt Readings from Last 3 Encounters: 03/26/24 71.9 kg (158 lb 9.6 oz) Physical Exam: General: No acute distress HEENT: Normocephalic, atraumatic, anicteric Cardiovascular: S1 S2 normal Respiratory: CTA Gl: soft non-distended Extremities: No cyanosis Neurological: Alert Integumentary: no rash Psych: Calm, cooperative LABS Results from last 7 days Lab Units 03/25/24 0817 03/25/24 0509 WBC AUTO K/mcL 14.1* 14.1* HEMOGLOBIN g/dL 10.6* 10.5* HEMATOCRIT % 35.8* 35.9* MCV FL 76.5* 77.7* PLATELETS K/mcL 247 254 Results from last 7 days Lab Units 03/26/24 0650 03/25/24 1856 03/25/24 1201 CREATININE mg/dL 9.29* 7.11* 13.30* BUN mg/dL 72* 54* 112* SODIUM mmol/L 134 134 135 POTASSIUM mmol/L 5.1 3.9 6.4* CHLORIDE mmol/L 97 98 102 CO2 mmol/L 23 25 17* No results found for: PHOS , [id number] , PTH , PUR No results found for: IRON , TIBC , FERRITIN No results found for: COLORUA , CLARITYUA , SPECGRAVUA , PHUA , PROTUA , GLUCOSEUA , KETONESUA , BILIRUBINUA , BLOODUA , UROBILINOGUA , NITRITEUA IMPRESSION and PLAN ESRD Anemia S/p HD yesterday Known ESRD on HD at [facility] via PC Followed by [facility] Nephrogenic anemia REC HD tomorrow Renal diet P binders No need for NAYE Dorian Escobedo MD * Estefani Kumar RN - 03/25/2024 6:13 PM EST 03/25/24 1810 Vital Signs Temp 36.3 ??C (97.3 ??F) Heart Rate 80 BP (!) 153/84 MAP (Calculated) 107 mm Hg SpO2 100 % Post-Hemodialysis Assessment Rinseback Volume (mL) 150 mL Total Liters Processed (L/min) 57.2 L/min Dialyzer Clearance Lightly streaked Duration of Treatment (minutes) 180 minutes Hemodialysis Output (mL) 1200 mL Patient Response to Treatment/Comments fair Weight (bed scale unavialable) Post HD: >Access: R(CVC) fair catheter pulls, arterial lumen slightly resistive. > Intermittent extremely negative arterial pressures due to pt inconsistent breathing while asleep. Pt states he has sleep apnea and does not use his machine. >BFR lowered to 300 most of tx due to frequent pt coughing and HD machine alarms >MD Escobedo updated >1.2L net fluid removal * Katerin Muir RN - 03/25/2024 12:21 PM EST ED RN HANDOFF (All [place] Below Must Be Completed) Reason/Diagnosis for Admission: Type of Admission: [] Medsurg, [x] Telemetry Already in a Hospital Bed: [] Yes / [x] No Room Considerations/Precautions (ex: fever, diarrhea, or any infectious concerns): [] Yes / [x] No Retort Engineer: [x] Yes / [] No If YES, Cardiac Rhythm: [x] NSR, [] SB, [] ST, [] A-FIB, [] A-Flutter, [] Pacemaker, [] 1st Degree HB, [] 2nd Degree HB, [] 3rd Degree HB Reason for Retort Engineer: VS: Visit Vitals BP 135/75 (BP Location: Right arm;Upper, Patient Position: Sitting) Pulse 65 Temp 36.6 ??C (97.9 ??F) (Oral) Resp 18 Ht 1.676 m (66 ) Wt 74.8 kg (165 lb) SpO2 97% BMI 26.63 kg/m?? BSA 1.84 m?? Current Mental Status: A/O x []4, [x]3, []2, []1 Current Ambulation Status: IV Access: [x] Yes / [] No Field IV present: [x] Yes / [] No Hx of Violence: [] Yes / [x] No / [] Unknown Fall Risk:[] Yes / [x] No Yellow Bracelet Applied [] Yes / [x] No Yellow Socks Applied [] Yes / [x] No Patient Belongings inventoried and BL completed: [x] Yes / [] No Patient belongings stored in the security closet: [x] Yes (If Yes please supply Security bag #): [] No Patient Medications stored in Pharmacy: [] Yes (If Yes please supply Medication Security bag #): [x] No ED Summary of Care: [id number] Submitted by and Phone Extension: Patient presents to the ED via ambulance for AMS from dialysis. Hx of T2DM, COPD, ESRD with dialysis MWF, PVD, and HTN. At dialysis they report the patient was not making any sense and their BP dropped. Patient did not get dialysis today. They also report the patient had a recent toe amputation. Family states they were given prescription for Percocet and thinks they may have accidentally taken too much. On arrival patient was lethargic and had difficulty staying awake and engaging in conversation. 0.1mg of Narcan IV was administered and patient became more responsive. Critical labs of potassium 6.8, creatinine 13.0. and VBG pH 7.12. Nephrology was consulted and they recommend admission for d ialysis. Was able to get small amount of urine from straight cath which revealed WBC and bacteria, so 1g of Ceftriaxone was given. Chx XR reveals, Small right pleural effusion with underlying atelectasis and/or infiltrate. Will admit patient to tele floor but would need to go to ICU for dialysis. * Jamin Muir RN - 03/25/2024 7:34 AM EST Patient presents with altered mental status. Patient was coming from [facility] . He was found to be altered with low blood pressure. Recent toe amputation * KYLAH Quispe - 03/25/2024 7:27 AM EST Emergency Medicine Note Patient Name: Beau Marie Initial Evaluation: 03/25/2024 : 1955 Patient's PCP: No primary care provider on file. Emergency Physician: Noman Conteh MD History of Present Illness Chief Complaint: Chief Complaint Patient presents with ??? Altered Mental Status HPI: 68-year-old male ESRD on MWF dialysis, T2DM c/b nephropathy and retinopathy, COPD on home oxygen of 2L, uncontrolled HTN, PVD. today missed dialysis. Patient was at dialysis his blood pressure was low he seemed lethargic so they sent him over to the emergency department for further evaluation and treatment. Status post toe amputations on right foot from gangrene on February 07, 2024. Arabic-speaking only. Interviewed with an per diem interpreter. My supervising physician s spoke to his son. March 22 taking Percocet and had dialysis that day. Son states he has been sleepy since then unsure if it is due to the Percocet ROS: I have performed a ROS with the pertinent positives and negatives documented in the history ofpresent illness. Previous History History reviewed. No pertinent past medical history. History reviewed. No pertinent surgical history. No family history on file. has No Known Allergies. No current facility-administered medications on file prior to encounter. No current outpatient medications on file prior to encounter. Physical Exam ED Triage Vitals [03/25/24 0741] Temp Heart Rate Resp BP 36.8 ??C (98.2 ??F) 93 18 (!) 110/97 SpO2 Temp Source Heart Rate Source Patient Position 98 % Oral Monitor Sitting BP Location FiO2 (%) Left arm -- Physical Exam Vitals and nursing note reviewed. Constitutional: Comments: Patient is sleepy lethargic HENT: Head: Normocephalic. Nose: Nose normal. Eyes: Extraocular Movements: Extraocular movements intact. Cardiovascular: Rate and Rhythm: Normal rate and regular rhythm. Pulmonary: Effort: Pulmonary effort is normal. Breath sounds: Normal breath sounds. Abdominal: General: Bowel sounds are normal. Palpations: Abdomen is soft. Musculoskeletal: General: Normal range of motion. Cervical back: Normal range of motion and neck supple. Comments: Toe amputations noted on right foot no sign of infection noted Skin: General: Skin is warm. Results Labs Reviewed CBC AND DIFFERENTIAL Narrative: The following orders were created for panel order CBC and differential. Procedure Abnormality Status --------- ------ CBC auto differential[[id number]] Please view results for these tests on the individual orders. COMPREHENSIVE METABOLIC PANEL AMMONIA URINALYSIS WITH REFLEX MICROSCOPIC AND CULTURE Narrative: The following orders were created for panel order Urinalysis with reflex microscopic and culture. Procedure Abnormality Status --------- ------ Urinalysis with reflex ...[[id number]] Lindsey urine culture tube[[id number]] Please view results for these tests on the individual orders. CBC WITH AUTO DIFFERENTIAL URINALYSIS WITH REFLEX MICROSCOPIC AND CULTURE URINALYSIS WITH REFLEX MICROSCOPIC Narrative: The following orders were created for panel order Urinalysis with reflex microscopic. Procedure Abnormality Status --------- ------ Urinalysis with reflex ...[[id number]] Please view results for these tests on the individual orders. URINALYSIS WITH REFLEX MICROSCOPIC VENOUS BLOOD GAS POC GLUCOSE POCT GLUCOSE, BLOOD Abnormal Labs Reviewed - No abnormal labs to display XR Chest 1 View (Results Pending) I have discussed the incidental/abnormal imaging and/or lab abnormalities with the patient and haveinstructed them the need for further evaluation and workup with their primary care doctor. I have provided the patient with a paper copy of the abnormality. The laboratory results, imaging results and other diagnostic exam results were reviewed in the EMR. EKG Interpretation Critical Care Time None Differential Diagnosis UTI Lethargy secondary to opiates Arrhythmia Electrolyte imbalance Medical Decision Making Patient lethargic. Given Narcan. Patient now awake alert oriented answering questions. Probable altered mental status secondary to narcotics. Potassium 6.8 his creatinine is 13. I consulted with Dr. escobedo from nephrology. Patient to go to cyst at 12:00 today in the ICU. It is arranged by Dr. Escobedo.Transferred to hospitalist service for further evaluation and treatment. Has wBC cells in urine. I ordered a gram of ceftriaxone after consulting with my supervising physician in the pharmacy. Medications naloxone (NARCAN) injection 0.1 mg (has no administration in time range) ED Course as of 03/25/24 1137 MonMar 25, 2024 0809 Chest x-ray with small left-sided pleural effusion [KV] 0809 ECG 70 normal sinus rhythm no peaked T waves or U waves [KV] 0831 Patient given 0.1 mg of Narcan with positive effect, he started coming to very quickly and much more alert [KV] 1050 Platelet, potassium 6.8 but no EKG changes, Dr. Escobedo was at bedside [KV] ED Course User Index [KV] Noman Conteh MD Clinical Impressions as of 03/25/24 1137 Acute kidney injury superimposed on chronic kidney disease (CMS/HCC) Hyperkalemia Urinary tract infection without hematuria, site unspecified Amount and/or Complexity of Data Reviewed External Data Reviewed: Encounters reviewed in Chart Review. Details: Labs: ordered. Decision-making details documented in ED Course. Radiology: ordered. Decision-making details documented in ED Course. ECG/medicine tests: ordered. Decision-making details documented in ED Course. Procedures Procedures Diagnosis No diagnosis found. Disposition Data Unavailable ED Prescriptions None Physician Attestation This is a split/shared visit with KYLAH Quispe. I personally performed the medical decision making (MDM) for the care of this patient on 03/25/24 as documented below Patient is presenting from dialysis unit for reports of hypertension, according to the ED nurse whotook report EMS reported that 3 out of 10 blood pressures were low and patient was sent to the ER but also it was noted that he was lethargic, I spoke to patient's son Nicanor, reported thatpatient is usually much more awake, on March 22 [facility], since then he has been more lethargic but also has been started on opiates for pain Patient is presenting information obtained with the help of a bilingual interpreter, he is answering yes/no questions but he is either encephalopathic or overmedicated, he has no obvious cranial nerve deficits or asymmetry of movement in upper or lower extremities, his ECG was obtained as initially re ceived reported he missed dialysis for a week but his son stated that last dialysis was on 03/22/2024, ECG does not show any evidence for hyperkalemia, will check his [id number] glucose, provide small amount of naloxone, he still makes urine, will check for UTI, pneumonia, otherwise we will then contact nephrology either for admission or making sure he receives dialysis Noman Conteh MD 03/25/24 8:08 AM EST MD Eneida Major PA 03/25/24 0805 Noman Conteh MD 03/25/24 0808 KYLAH Quispe 03/25/24 1136 documented in this encounter H&P Notes * KYLAH Javier - 03/25/2024 1:35 PM EST Images from the original note were not included. TANYA HISTORY AND PHYSICAL Please contact author [KYLAH Javier] via [employer]. Patient: Beau Marie Admission Date/Time: 03/25/2024 7:29 AM : 1955 [68 y.o.] Patient's PCP: Pcp Unknown Physician Attending Provider: Brenda Cobian MD CHIEF COMPLAINT Mental status change HISTORY OF PRESENT ILLNESS This is a 68 year old puerto rican speaking male with past medical history significant for ESRD on hemodialysis MWF, diabetes mellitus requiring insulin, hypertension, hyperlipidemia, asthma/COPD on chronic supplemental oxygen, gout, amongst others, who presents emergency room from dialysis center. Patient is Arabic-speaking only requiring use of electronic per diem interpreter Alicia #[id number], limiting H&P. Patient is altered and does not provide much history. He denies symptoms at this time including shortness of breath, pain, fevers, chills. Per ED documentation patient presented from dialysis center with mental status change and low blood pressure. Of note he recently underwent toe amputation in 2023. Upon H&P patient is Afebrile, heart rate 65, respiratory rate 18, blood pressure 152/94, oxygensaturation 97% on 2 L supplemental O2. Labs reveal WBC 14.1 with H&H 10.5/35.9, potassium 6.8, CO2 17 with anion gap 18, BUN 115 with creatinine 13. UA revealing moderate bacteria, 80 WBC, 10 RBC, moderate blood, 250 glucose, positive nitrite and trace leukocytes, though 100 epithelial cells. Chest x-ray imaging performed revealing small right pleural effusion with underlying atelectasis and/or infiltrate. The lung remains clear. Cardiomegaly. See full report for additional details. Nephrology was consulted and care subsequent transferred to medical service for further evaluation and treatment. Review of Systems Review of Systems Unable to perform ROS: Mental status change MEDICAL HISTORY Past Medical History Past Medical History: Diagnosis Date COPD (chronic obstructive pulmonary disease) ([facility]/HCC) Diabetes mellitus ([facility]) ESRD (end stage renal disease) on dialysis ([facility]) MWF GERD (gastroesophageal reflux disease) Gouty arthritis Hyperlipidemia Hypertension Past Surgical History Past Surgical History: Procedure Laterality Date IR DIALYSIS CATH INSERT VASCULAR ACCESS TOE AMPUTATION Social History reports that he has quit smoking. His smoking use included cigarettes. He has never used smokeless tobacco. He reports that he does not currently use alcohol. He reports that he does not use drugs. . Requires assistance with ADLS. Has home [employer] Use assistive device with ambulation. Family History Family history is unknown by patient. Not able to obtain family history at this time. Though prior documentation indicates family historysignificant for diabetes mellitus. Allergies has No Known Allergies. Home Medications No current facility-administered medications on file prior to encounter. Current Outpatient Medications on File Prior to Encounter Medication Sig Dispense Refill atorvastatin (LIPITOR) 40 mg tablet Take 1 tablet (40 mg total) by mouth daily. Marion Low Dose Aspirin 81 mg EC tablet Take 1 tablet (81 mg total) by mouth daily. doxazosin (CARDURA) 4 mg tablet Take 1 tablet (4 mg total) by mouth at bedtime. at bedtime furosemide (LASIX) 80 mg tablet Take 1 tablet (80 mg total) by mouth 1 (one) time each day. hydrALAZINE (APRESOLINE) 25 mg tablet Take 1 tablet (25 mg total) by mouth 3 (three) times a day. insulin lispro 100 unit/mL injection Inject 2 Units under the skin 3 (three) times a day before meals. 2-10 units subcutaneously three times daily ipratropium-albuteroL (DUONEB) 0.5-2.5 mg/3 mL nebulizer solution Take 3 mL by nebulization 4 (four) times a day if needed for wheezing or shortness of breath. Lantus Solostar U-100 Insulin 100 unit/mL (3 mL) injection pen Inject 22 Units under the skin at bedtime. omeprazole (PriLOSEC) [address] capsule Take 1 capsule (20 mg total) by mouth 1 (one) time each day before breakfast. pregabalin (LYRICA) 75 mg capsule Take 1 capsule (75 mg total) by mouth 1 (one) time each day. Max Daily Amount: 75 mg Stimulant Laxative Plus 8.6-50 mg per tablet Take 1 tablet by mouth 1 (one) time each day if neededfor constipation. allopurinoL (ZYLOPRIM) 100 mg tablet Take 1 tablet (100 mg total) by mouth 3 (three) times a week. After dialysis losartan (COZAAR) 25 mg tablet Take 1 tablet (25 mg total) by mouth 1 (one) time each day. oxyCODONE (ROXICODONE) 5 mg immediate release tablet Take 1 tablet (5 mg total) by mouth 3 (three) times a day if needed for severe pain. Max Daily Amount: 15 mg Trelegy Ellipta 200-62.5-25 mcg inhaler Inhale 1 puff (200 mcg total) by mouth 1 (one) time each day. Ventolin HFA 90 mcg/actuation inhaler Inhale 2 puffs by mouth every 4 (four) hours if needed for shortness of breath. [DISCONTINUED] Velphoro 500 mg chewable tablet Chew 1 tablet (500 mg total) 3 (three) times a day with meals. OBJECTIVE Vitals Visit Vitals BP (!) 152/94 (BP Location: Right arm, Patient Position: Lying) Pulse 65 Temp 36.6 ??C (97.8 ??F) (Temporal) Resp 18 Temp (24hrs), Av.7 ??C (98 ??F), Min:36.6 ??C (97.8 ??F), Max:36.8 ??C (98.2 ??F) Body mass index is 26.63 kg/m??. No results found for: PTWT , PTHT Physical Examination General Exam: Appearing older than stated age, easily falling asleep during interview and exam, requiring frequent wake ups. Calm, minimally cooperative due to increased fatigue, no apparent distress. Skin Exam: Warm, dry, intact, no diaphoresis. No rashes noted. Capillary refill < 3 seconds. Eye Exam: Pupils are small though PERRLA HEENT exam: Head is atraumatic, normocephalic. Oral mucosa dry. No oropharyngeal candidiasis. No trismus, drooling, or difficulty handling secretions. Neck Exam: Soft/supple, full range of motion, no nuchal rigidity Respiratory Exam: Decreased breath sounds to auscultation bilaterally, no wheezes, rales or rhonchi. No tripoding, retractions or increased work of breathing. Cardiovascular Exam: Regular rate and rhythm. Gastrointestinal Exam: No pulsations or visible masses, nondistended. Hypoactive bowel sounds. Abdomen is soft, nontender, without rebound/guarding. No peritoneal signs appreciated. Musculoskeletal Exam: No calf tenderness or asymmetry. Moving all extremities at the major joint spaces without difficulty. Neurological Exam: Alert and oriented X0. Frequently falling asleep, not able to follow commands. LAB RESULTS (most recent) HEMATOLOGY Lab Results Component Value Date WBC 14.1 (H) 03/25/2024 HGB 10.6 (L) 03/25/2024 HCT 35.8 (L) 03/25/2024 MCV 76.5 (L) 03/25/2024 PLT 247 03/25/2024 CHEMISTRY Lab Results Component Value Date GLUCOSE 107 (H) 03/25/2024 NA 135 03/25/2024 K 6.4 (HH) 03/25/2024 CO2 17 (L) 03/25/2024 CL 102 03/25/2024 BUN 112 (H) 03/25/2024 CREATININE 13.30 (HH) 03/25/2024 EGFR 4 (L) 03/25/2024 CALCIUM 8.5 03/25/2024 ANIONGAP 16 (H) 03/25/2024 Radiology XR Chest 1 View Final Result Small right pleural effusion with underlying atelectasis and/or infiltrate. The left lung remains clear. Cardiomegaly, new since 08/10/2020. Code 48247 -------- FINAL REPORT -------- Dictated By: Daren Sol Dictated Date: 03/25/2024 08:45 ET Assigned Physician: Daren Sol Reviewed and Electronically Signed By: Daren Sol Signed Date: 03/25/2024 08:46 ET Workstation ID: [id number] Transcribed By: Self Edit Transcribed Date: 03/25/2024 08:45 ET ASSESSMENT & PLAN Acute encephalopathy ?Opiate overdose versus oversedation in the setting of opiate use -Bring patient into the hospital, monitor vital signs, ins and outs peripheral protocol -Initially presented to hemodialysis with altered, increased fatigue/lethargy with hypotension -Family reports increased somnolence after initiation of Percocet use -Received Narcan in emergency room with increased alertness -Urine drug screen pending at this time -Consultation placed to nephrology, appreciate input. Plan to undergo hemodialysis today -Urinary tract infection may also be contributing to acute encephalopathy -Morning labs: CBC, BMP, mag Hyperkalemia Metabolic acidosis -Potassium initially 6.8 with improvement to 6.4 -Patient will undergo hemodialysis today ESRD on hemodialysis -Attempted to undergo hemodialysis today, though was ultimately sent to the hospital for further evaluation and treatment -ESRD on HD MWF. Plan to undergo hemodialysis today 03/25/2024, as stated above -Consultation placed to renal, appreciate input -Continue home Velphoro Urinary tract infection -UA revealing: Moderate bacteria, 10 RBC, 80 WBC, trace leukocytes and positive nitrite, though 100squamous cells -Continue IV ceftriaxone and await urine culture/sensitivity -Recommendations to re-assess UA after UTI has been treated, patient may require urology referral if hematuria has not resolved. Diabetes mellitus -Rppjo-yc-zgus every 4 hours with low-dose insulin sliding scale -Hold chronic home meds Osteomyelitis -Recently underwent amputation of toes on right foot in February 2024 -Hold oxycodone as this is likely contributing to acute encephalopathy with oversedation -Cautiously continue Lyrica Hypertension -Continue home furosemide, doxazosin, hydralazine, losartan as prescribed with holding parameters Hyperlipidemia -Continue statin COPD -History of COPD, without acute exacerbation -Continue home Trelegy Ellipta and as needed albuterol Gait instability -Falls precautions Admission checklist [x] Code status: Full Code - Default [x] VTE Prophylaxis: Sequentials [x] Diet order on admission: Dietary Orders (From admission, onward) Start Ordered 03/25/24 1147 Adult diet [facility]; General; Potassium 2 gm Restriction (50 mEq) Diet effective now Question Answer Comment Location [facility] Diet Type (req) General General Diet Potassium 2 gm Restriction (50 mEq) 03/25/24 1146 [x] Medication reconciliation Health Care proxy with Phone number: Not able to provide name and phone number at this time Case discussed with Associated attestation - Brenda Cobian MD - 04/02/2024 9:39 AM EST This is a split/shared visit with KYLAH Butler. I personally performed the medical decision making (MDM) for the care of this patient on 03/25/24 asdocumented below The patient is 68-year-old male with end-stage renal disease on hemodialysis as well as COPD on chronic supplemental oxygen. Presents with confusion. His vital signs are within normal limits. Laboratory data are also reviewed by me and showed leukocytosis as well as anion gap of 18 elevated creatinine of 13. He is hyperkalemic with potassium of 6.4 he has anion gap metabolic acidosis His urinalysis is positive for UTI. Reviewed chest x-ray which shows small right pleural effusion but I do not think that this is an infiltrate. Conversation has been held with ED team and final decision has been made to admit the patient to medical service for dialysis and further medical management. I think that his acute encephalopathy is due to opiate overdose and oversedation. He responded somewhat to Narcan. We will hold opiates for now. Urine drug screen is obtained and is pending. Patient will require hemodialysis and this will be arranged. Hyperkalemia is chronic and slightly improving after treatment in emergency room this will further improve with dialysis. Patient will remain on cardiac monitoring. Chronic management as above Brenda Cobian MD 04/02/24 9:35 AM EST documented in this encounter Consult Notes * Dorian Escobedo MD - 03/25/2024 10:53 AM EST Images from the original note were not included. CONSULT Date of Service: 03/25/24 Chief Complaint Evaluation and management of ESRD History Of Present Illness 68-year-old male with history of ESRD presented to the hospital with altered mental status. In summary he was found at dialysis to have low blood pressure and seemed lethargic so they sent him over to the emergency department for further evaluation and treatment. He recently had a toe amputations on on March 22 due to dry gangrene at [facility] and since then he has been more lethargic but also has been started on opiates for pain Past Medical History History reviewed. No pertinent past medical history. Surgical History History reviewed. No pertinent surgical history. Family History No family history on file. Social History No family history of CKD Allergies Patient has no known allergies. Medications Current medications reviewed. Review of Systems 10 points review of system negative except for pertinent in HPI Last Recorded Vitals: Visit Vitals BP (!) 161/79 (BP Location: Right arm, Patient Position: Sitting) Pulse 70 Temp 36.8 ??C (98.2 ??F) Resp 16 Wt Readings from Last 3 Encounters: 03/25/24 74.8 kg (165 lb) Intake/Output last 3 shifts: No intake or output data in the 24 hours ending 03/25/24 1054 Physical Exam General: No acute distress HEENT: Normocephalic, atraumatic, anicteric Respiratory: diminished BS Cardiovascular: S1 S2 normal Gl: Soft no tenderness Extremities: No cyanosis Neurological: Alert Integumentary: no rashes Results Review Results from last 7 days Lab Units 03/25/24 0817 WBC AUTO K/mcL 14.1* HEMOGLOBIN g/dL 10.6* HEMATOCRIT % 35.8* MCV FL 76.5* PLATELETS K/mcL 247 Results from last 7 days Lab Units 03/25/24 0817 CREATININE mg/dL 13.00* BUN mg/dL 115* SODIUM mmol/L 134 POTASSIUM mmol/L 6.8* CHLORIDE mmol/L 99 CO2 mmol/L 17* No results found for: PHOS , PCGN287 , PTH , PUR No results found for: IRON , TIBC , FERRITIN No results found for: COLORUA , CLARITYUA , SPECGRAVUA , PHUA , PROTUA , GLUCOSEUA , KETONESUA , BILIRUBINUA , BLOODUA , UROBILINOGUA , NITRITEUA Impression & Plan ESRD Hyperkalemia Anemia Known ESRD on HD at [facility] HDU MWF via PC Followed by [facility]ney care Nephrogenic anemia REC HD today Low k bath Renal diet P binders No need for NAYE Dorian Escobedo MD documented in this encounter Miscellaneous Notes * ED Bed Hold Note - Lily Ibarra RN - 03/25/2024 7:29 AM EST Bed: RD-14 Expected date: 03/25/24 Expected time: Means of arrival: Comments: EMS, 60 M, AMS, FROM DIALYSIS documented in this encounter Plan of Treatment Not on file documented as of this encounter Procedures Procedure Name Priority Date/Time Associated Diagnosis Comments POCT GLUCOSE BLOOD Routine 03/27/2024 4: 55 [...] BLOOD Routine 03/26/2024 8: 31 AM EST EXTRA TUBES Routine 03/26/2024 6:50 AM EST LAVENDER - EDTA Routine 03/26/2024 6:50 AM EST BASIC METABOLIC [...] EST HEMODIALYSIS INPATIENT Routine 10:36 AM EST URINALYSIS WITH REFLEX MICROSCOPIC AND CULTURE STAT 03/25/2024 8:26 AM EST LINDSEY URINE CULTURE TUBE STAT 03/25/2024 8:26 AM EST URINALYSIS WITH REFLEX MICROSCOPIC AND CULTURE STAT 03/25/2024 8:26 AM EST CULTURE URINE STAT 03/25/2024 8:26 AM EST HEPATITIS B SURFACE ANTIGEN WITH CONFIRMATION Add-On 03/25/2024 8:17 AM EST CBC WITH AUTO DIFFERENTIAL STAT 03/25/2024 8:17 AM EST HEPATITIS B SURFACE ANTIBODY QUANTITATIVE Add-On 03/25/2024 8:17 AM EST CBC AND DIFFERENTIAL STAT 03/25/2024 8:17 AM EST VENOUS BLOOD GAS STAT 03/25/2024 8:17 AM EST AMMONIA STAT 03/25/2024 8:17 AM EST COMPREHENSIVE METABOLIC PANEL STAT 03/25/2024 8:17 AM EST ECG 12-LEAD STAT 03/25/2024 7:58 AM EST XR CHEST 1 VIEW STAT 03/25/2024 7:46 AM EST ECG ANNOTATED 03/25/2024 documented in this encounter Results * (ABNORMAL) POCT Glucose, blood (03/27/2024 4:55 PM EST) Glucose POCT 276(H) 70 - 100 mg/dL 03/27/2024 4:56 PM EST [facility] Blood Capillary blood specimen / Unknown 03/27/2024 4:55 PM EST 03/27/2024 4:57 PM EST Marion Hernandez MD LAB POINT OF CARE TE ST DOCKED DEVICE UNSOLICITED RESULTS Performing Organization Address City/[facility]/ZIP Co de Phone Number [facility] [address] [place] [address], [place] [phone] * (ABNORMAL) POCT Glucose, blood (03/27/2024 12:33 PM EST) Glucose POCT 192(H) 70 - 100 mg/dL 03/27/2024 12:33 PM EST [facility] Blood Capillary blood specimen / Unknown 03/27/2024 12:33 PM EST 03/27/2024 12:34 PM EST Marion Hernandez MD LAB POINT OF CARE TE ST DOCKED DEVICE UNSOLICITED RESULTS [facility] [address] [place] [address], [place] [phone] * (ABNORMAL) POCT Glucose, blood (03/27/2024 10:27 AM EST) Glucose POCT 123(H) 70 - 100 mg/dL 03/27/2024 10:28 AM EST [facility] Blood Capillary blood specimen / Unknown 03/27/2024 10:27 AM EST 03/27/2024 10:29 AM EST Marion Hernandez MD LAB POINT OF CARE TE ST DOCKED DEVICE UNSOLICITED RESULTS [facility] [address] [place] [address], * (ABNORMAL) CBC auto differential (03/27/2024 7:35 AM EST) Pathologist [facility] WBC 6.4 4.8 - 10.8 K/mcL LAB HEMETOLOGY METHOD 03/27/2024 9:44 AM [facility] RBC 4.20(L) 4.50 - 5.50 M/mcL LAB HEMETOLOGY METHOD 03/27/2024 9:44 AM [facility] Hemoglobin 9.7(L) 13.5 - 17.5 g/dL LAB HEMETOLOGY METHOD 03/27/2024 9:44 AM [facility] Hematocrit 32.2(L) 42.0 - 54.0 % LAB HEMETOLOGY METHOD 03/27/2024 9:44 AM [facility] MCV 76.3(L) 79.0 - 98.0 FL LAB HEMETOLOGY METHOD 03/27/2024 9:44 AM [facility] MCH 23.0(L) 27.0 - 32.0 pcg LAB HEMETOLOGY METHOD 03/27/2024 9:44 AM [facility] MCHC 30.1(L) 32.0 - 37.0 g/dL LAB HEMETOLOGY METHOD 03/27/2024 9:44 AM [facility] RDW 17.0(H) 11.0 - 15.0 % LAB HEMETOLOGY METHOD 03/27/2024 9:44 AM [facility] Platelets 160 130 - 400 K/mcL LAB HEMETOLOGY METHOD 03/27/2024 9:44 AM [facility] MPV LAB HEMETOLOGY METHOD 03/27/2024 9:44 AM [facility] Comment:Not Measured NRBC 0.0 <1.0 % LAB HEMETOLOGY METHOD 03/27/2024 9:44 AM [facility] NRBC Absolute 0.00 <0.10 K/mcL LAB HEMETOLOGY METHOD 03/27/2024 9:44 AM [facility] Neutrophils Relative 82.3 % LAB HEMETOLOGY METHOD 03/27/2024 9:44 AM [facility] Lymphocytes Relative 6.4 % LAB HEMETOLOGY METHOD 03/27/2024 9:44 AM [facility] Monocytes Relative 9.0 % LAB HEMETOLOGY METHOD 03/27/2024 9:44 AM [facility] Eosinophils Relative 0.2 % LAB HEMETOLOGY METHOD 03/27/2024 9:44 AM [facility] Basophils Relative 0.5 % LAB HEMETOLOGY METHOD 03/27/2024 9:44 AM [facility] Immature Granulocytes Relative 1.6 % LAB HEMETOLOGY METHOD 03/27/2024 9:44 AM [facility] Neutrophils Absolute 5.31 1.50 - 7.00 K/mcL LAB HEMETOLOGY METHOD 03/27/2024 9:44 AM [facility] Lymphocytes Absolute 0.41(L) 1.00 - 5.00 K/mcL LAB HEMETOLOGY METHOD 03/27/2024 9:44 AM [facility] Monocytes Absolute 0.58 0.20 - 1.00 K/mcL LAB HEMETOLOGY METHOD 03/27/2024 9:44 AM [facility] Eosinophils Absolute 0.01 0.00 - 0.50 K/mcL LAB HEMETOLOGY METHOD 03/27/2024 9:44 AM EST [facility] Basophils Absolute 0.03 0.00 - 0.20 K/mcL LAB HEMETOLOGY METHOD 03/27/2024 9:44 AM EST [facility] Immature Granulocytes Absolute 0.10(H) 0.00 - 0.03 K/mcL LAB HEMETOLOGY METHOD 03/27/2024 9:44 AM EST [facility] Blood Venous blood specimen / Unknown Venipuncture / Unknown 03/27/2024 7:35 AM EST 03/27/2024 9:09 AM EST Srinivasa Sherman NP LAB BLOOD ORDERABLES Performing Organization Address City/[facility]/ZIP Co de Phone Number [facility] [address] [place] [address], [place] [phone] * (ABNORMAL) Magnesium (03/27/2024 7:35 AM EST) Pathologist [facility] Magnesium 1.2(L) 1.9 - 2.6 mg/dL LAB CHEMISTRY METHOD 03/27/2024 9:42 AM EST [facility] Blood Venous blood specimen / Unknown Venipuncture / Unknown 03/27/2024 7:35 AM EST 03/27/2024 9:08 AM EST Srinivasa Sherman NP LAB BLOOD ORDERABLES [facility] [address] [place] [address], [place] [phone] * (ABNORMAL) Basic metabolic panel (03/27/2024 7:35 AM EST) Sodium 143 133 - 145 mmol/L LAB CHEMISTRY METHOD 03/27/2024 11:07 AM [facility] Potassium 3.8 3.5 - 5.5 mmol/L LAB CHEMISTRY METHOD 03/27/2024 11:07 AM EST [facility] Chloride 116(H) 96 - 110 mmol/L LAB CHEMISTRY METHOD 03/27/2024 11:07 AM [facility] Comment:Results verified by repeat testing CO2 15(L) 21 - 32 mmol/L LAB CHEMISTRY METHOD 03/27/2024 11:07 AM [facility] Comment:Results verified by repeat testing Anion Gap 12(H) 3 - 11 LAB CHEMISTRY METHOD 03/27/2024 11:07 AM [facility] Glucose 140(H) 70 - 100 mg/dL LAB CHEMISTRY METHOD 03/27/2024 11:07 AM [facility] BUN 65(H) 5 - 25 mg/dL LAB CHEMISTRY METHOD 03/27/2024 11:07 AM [facility] Creatinine 7.26(H) 0.70 - 1.30 mg/dL LAB CHEMISTRY METHOD 03/27/2024 11:07 AM [facility] eGFR 8(L) >=60 mL/min/1. 73m2 LAB CHEMISTRY METHOD 03/27/2024 11:07 AM [facility] Comment:Calculation based on the??Chronic Kidney Disease Epidemiology Collaboration (CKD-EPI) equation refit??without adjustment for race. BUN/Creatinine Ratio 9.0 LAB CHEMISTRY METHOD 03/27/2024 11:07 AM [facility] Calcium 5.2(LL) 8.5 - 10.5 mg/dL LAB CHEMISTRY METHOD 03/27/2024 11:07 AM [facility] Blood Venous blood specimen / Unknown Venipuncture / Unknown 03/27/2024 7:35 AM EST 03/27/2024 9:08 AM EST Srinivasa Sherman NP LAB BLOOD ORDERABLES [facility] [address] [place] [address], * (ABNORMAL) POCT Glucose, blood (03/27/2024 6:52 AM EST) Glucose POCT 222(H) 70 - 100 mg/dL 03/27/2024 6:53 AM EST [facility] Blood Capillary blood specimen / Unknown 03/27/2024 6:52 AM EST 03/27/2024 6:55 AM EST Marion Hernandez MD LAB POINT OF CARE TE ST DOCKED DEVICE UNSOLICITED RESULTS [facility] [address] [place] [address], [place] [phone] * (ABNORMAL) POCT Glucose, blood (03/26/2024 9:10 PM EST) Glucose POCT 307(H) 70 - 100 mg/dL 03/26/2024 9:10 PM EST [facility] Blood Capillary blood specimen / Unknown 03/26/2024 9:10 PM EST 03/26/2024 9:11 PM EST Marion Hernandez MD LAB POINT OF CARE TE ST DOCKED DEVICE UNSOLICITED RESULTS Performing Organization Address City/[facility]/ZIP Co de Phone Number [facility] [address] [place] [address], [place] [phone] * (ABNORMAL) POCT Glucose, blood (03/26/2024 3:51 PM EST) Glucose POCT 142(H) 70 - 100 mg/dL 03/26/2024 3:53 PM EST [facility] Blood Capillary blood specimen / Unknown 03/26/2024 3:51 PM EST 03/26/2024 3:54 PM EST Marion Hernandez MD LAB POINT OF CARE TE ST DOCKED DEVICE UNSOLICITED RESULTS [facility] [address] [place] [address], [place] [phone] * Culture blood (03/26/2024 2:56 PM EST) Culture, Blood No growth at 5 days 03/31/2024 4:01 PM EST [facility] Blood Venous blood specimen / Unknown Venipuncture / Unknown 03/26/2024 2:56 PM EST 03/26/2024 3:05 PM EST Marion Hernandez MD LAB MICROBIOLOGY - G ENERAL ORDERABLES [facility] [address] [place] [address], [place] [phone] * (ABNORMAL) POCT Glucose, blood (03/26/2024 12:40 PM EST) Glucose POCT 161(H) 70 - 100 mg/dL 03/26/2024 12:41 PM EST [facility] Blood Capillary blood specimen / Unknown 03/26/2024 12:40 PM EST 03/26/2024 12:42 PM EST Marion Hernandez MD LAB POINT OF CARE TE ST DOCKED DEVICE UNSOLICITED RESULTS [facility] [address] [place] [address], [place] [phone] * (ABNORMAL) POCT Glucose, blood (03/26/2024 8:31 AM EST) Glucose POCT 160(H) 70 - 100 mg/dL 03/26/2024 8:32 AM EST [facility] Blood Capillary blood specimen / Unknown 03/26/2024 8:31 AM EST 03/26/2024 8:32 AM EST Marion Hernandez MD LAB POINT OF CARE TE ST DOCKED DEVICE UNSOLICITED RESULTS Performing Organization Address City/[facility]/ZIP Co de Phone Number [facility] [address] [place] [address], [place] [phone] * Lavender tube (03/26/2024 6:50 AM EST) [facility] Extra Tube Hold for add-ons. 03/26/2024 9:01 AM EST [facility] Comment:Auto resulted. Blood Venous blood specimen / Unknown 03/26/2024 6:50 AM EST 03/26/2024 7:01 AM EST Marion Hernandez MD LAB BLOOD ORDERABLES Performing Organization Address [facility]/ZIP Co de Phone Number [facility] [address] [place] [address], [place] [phone] * (ABNORMAL) Basic metabolic panel (03/26/2024 6:50 AM EST) [facility] Sodium 134 133 - 145 mmol/L LAB CHEMISTRY METHOD 03/26/2024 8:03 AM [facility] Potassium 5.1 3.5 - 5.5 mmol/L LAB CHEMISTRY METHOD 03/26/2024 8:03 AM [facility] Chloride 97 96 - 110 mmol/L LAB CHEMISTRY METHOD 03/26/2024 8:03 AM [facility] CO2 23 21 - 32 mmol/L LAB CHEMISTRY METHOD 03/26/2024 8:03 AM [facility] Anion Gap 14(H) 3 - 11 LAB CHEMISTRY METHOD 03/26/2024 8:03 AM [facility] Glucose 91 70 - 100 mg/dL LAB CHEMISTRY METHOD 03/26/2024 8:03 AM [facility] BUN 72(H) 5 - 25 mg/dL LAB CHEMISTRY METHOD 03/26/2024 8:03 AM [facility] Creatinine 9.29(H) 0.70 - 1.30 mg/dL LAB CHEMISTRY METHOD 03/26/2024 8:03 AM [facility] Comment:Results verified by repeat testing eGFR 6(L) >=60 mL/min/1. 73m2 LAB CHEMISTRY METHOD 03/26/2024 8:03 AM [facility] Comment:Calculation based on the??Chronic Kidney Disease Epidemiology Collaboration (CKD-EPI) equation refit??without adjustment for race. BUN/Creatinine Ratio 7.8 LAB CHEMISTRY METHOD 03/26/2024 8:03 AM [facility] Calcium 8.1(L) 8.5 - 10.5 mg/dL LAB CHEMISTRY METHOD 03/26/2024 8:03 AM [facility] Blood Venous blood specimen / Unknown Venipuncture / Unknown 03/26/2024 6:50 AM EST 03/26/2024 7:00 AM EST Brenda Cobian MD LAB BLOOD ORDERABLES [facility] [address] [place] [address], [place] [phone] * (ABNORMAL) POCT Glucose, blood (03/25/2024 8:58 PM EST) Glucose POCT 225(H) 70 - 100 mg/dL 03/25/2024 8:58 PM EST [facility] Blood Capillary blood specimen / Unknown 03/25/2024 8:58 PM EST 03/25/2024 9:00 PM EST Brenda Cobian MD LAB POINT OF CARE TE ST DOCKED DEVICE UNSOLICITED RESULTS [facility] [address] [place] [address], [place] [phone] * Magnesium (03/25/2024 6:56 PM EST) Pathologist [facility] Magnesium 1.9 1.9 - 2.6 mg/dL LAB CHEMISTRY METHOD 03/25/2024 7:26 PM [facility] Blood Venous blood specimen / Unknown Venipuncture / Unknown 03/25/2024 6:56 PM EST 03/25/2024 7:00 PM EST Radha MONTERO LAB BLOOD ORDERABLES [facility] [address] [place] [address], * (ABNORMAL) Basic metabolic panel (03/25/2024 6:56 PM EST) [facility] Sodium 134 133 - 145 mmol/L LAB CHEMISTRY METHOD 03/25/2024 7:28 PM [facility] Potassium 3.9 3.5 - 5.5 mmol/L LAB CHEMISTRY METHOD 03/25/2024 7:28 PM [facility] Chloride 98 96 - 110 mmol/L LAB CHEMISTRY METHOD 03/25/2024 7:28 PM [facility] CO2 25 21 - 32 mmol/L LAB CHEMISTRY METHOD 03/25/2024 7:28 PM [facility] Anion Gap 11 3 - 11 LAB CHEMISTRY METHOD 03/25/2024 7:28 PM [facility] Glucose 80 70 - 100 mg/dL LAB CHEMISTRY METHOD 03/25/2024 7:28 PM [facility] BUN 54(H) 5 - 25 mg/dL LAB CHEMISTRY METHOD 03/25/2024 7:28 PM [facility] Creatinine 7.11(H) 0.70 - 1.30 mg/dL LAB CHEMISTRY METHOD 03/25/2024 7:28 PM [facility] eGFR 8(L) >=60 mL/min/1. 73m2 LAB CHEMISTRY METHOD 03/25/2024 7:28 PM [facility] Comment:Calculation based on the??Chronic Kidney Disease Epidemiology Collaboration (CKD-EPI) equation refit??without adjustment for race. BUN/Creatinine Ratio 7.6 LAB CHEMISTRY METHOD 03/25/2024 7:28 PM EST [facility] Calcium 8.4(L) 8.5 - 10.5 mg/dL LAB CHEMISTRY METHOD 03/25/2024 7:28 PM EST [facility] Blood Venous blood specimen / Unknown Venipuncture / Unknown 03/25/2024 6:56 PM EST 03/25/2024 7:00 PM EST Radha MONTERO LAB BLOOD ORDERABLES [facility] [address] [place] [address], * Respiratory virus panel molecular study (03/25/2024 6:49 PM EST) Adenovirus Detection by PCR Not Detected Not Detected LAB MICROBIOLOGY METHOD 03/25/2024 8:14 PM [facility] Influenza A PCR Not Detected Not Detected LAB MICROBIOLOGY METHOD 03/25/2024 8:14 PM [facility] Influenza B PCR Not Detected Not Detected LAB MICROBIOLOGY METHOD 03/25/2024 8:14 PM [facility] Coronavirus 229E Not Detected Not Detected LAB MICROBIOLOGY METHOD 03/25/2024 8:14 PM EST [facility] Coronavirus HKU1 Not Detected Not Detected LAB MICROBIOLOGY METHOD 03/25/2024 8:14 PM EST [facility] Coronavirus OC43 Not Detected Not Detected LAB MICROBIOLOGY METHOD 03/25/2024 8:14 PM [facility] Coronavirus NL63 Not Detected Not Detected LAB MICROBIOLOGY METHOD 03/25/2024 8:14 PM [facility] Parainfluenza Virus 1 Not Detected Not Detected LAB MICROBIOLOGY METHOD 03/25/2024 8:14 PM [facility] Parainfluenza Virus 2 Not Detected Not Detected LAB MICROBIOLOGY METHOD 03/25/2024 8:14 PM [facility] Parainfluenza Virus 3 Not Detected Not Detected LAB MICROBIOLOGY METHOD 03/25/2024 8:14 PM [facility] Parainfluenza Virus 4 Not Detected Not Detected LAB MICROBIOLOGY METHOD 03/25/2024 8:14 PM [facility] RSV PCR Not Detected Not Detected LAB MICROBIOLOGY METHOD 03/25/2024 8:14 PM [facility] Human Metapneumovirus A and B Not Detected Not Detected LAB MICROBIOLOGY METHOD 03/25/2024 8:14 PM [facility] Rhinovirus/Entero virus Not Detected Not Detected LAB MICROBIOLOGY METHOD 03/25/2024 8:14 PM [facility] Bordetella pertussis Not Detected Not Detected LAB MICROBIOLOGY METHOD 03/25/2024 8:14 PM [facility] Bordetella parapertussis Not Detected Not Detected LAB MICROBIOLOGY METHOD 03/25/2024 8:14 PM [facility] Mycoplasma pneumo by PCR Not Detected Not Detected LAB MICROBIOLOGY METHOD 03/25/2024 8:14 PM [facility] Chlamydia pneumoniae Not Detected Not Detected LAB MICROBIOLOGY METHOD 03/25/2024 8:14 PM [facility] SARS COV-2 Not Detected Not Detected LAB MICROBIOLOGY METHOD 03/25/2024 8:14 PM [facility] Swab Both anterior nares / Unknown Non-blood Collection / Unknown 03/25/2024 6:49 PM EST 03/25/2024 6:59 PM EST [facility] - 03/25/2024 8:14 PM EST Testing was performed using the [employer] Respiratory Pathogen PCR Assay. All results must [...] - G ENERAL ORDERABLES Performing Organization Address [facility]/ZIP Co de Phone Number [facility] [address] [place] [address], * POCT Glucose, blood (03/25/2024 5:10 PM EST) Glucose POCT 95 70 - 100 mg/dL 03/25/2024 5:10 PM EST [facility] Blood Capillary blood specimen / Unknown 03/25/2024 5:10 PM EST 03/25/2024 5:12 PM EST Brenda Cobian MD LAB POINT OF CARE TE ST DOCKED DEVICE UNSOLICITED RESULTS Performing Organization Address [facility] Co de Phone Number [facility] [address] [place] [address], [place] [phone] * Ethanol (03/25/2024 12:01 PM EST) [facility] Ethanol Level <3 0 - 10 mg/dL LAB CHEMISTRY METHOD 03/25/2024 1:57 PM EST [facility] Blood Venous blood specimen / Unknown Venipuncture / Unknown 03/25/2024 12:01 PM EST 03/25/2024 12:20 PM EST Radha MONTERO LAB BLOOD ORDERABLES Performing Organization Address [facility]/ZIP Co de Phone Number [facility] [address] [place] [address], [place] [phone] * (ABNORMAL) Basic metabolic panel (03/25/2024 12:01 PM EST) Sodium 135 133 - 145 mmol/L LAB CHEMISTRY METHOD 03/25/2024 1:04 PM [facility] Potassium 6.4(HH) 3.5 - 5.5 mmol/L LAB CHEMISTRY METHOD 03/25/2024 1:04 PM [facility] Chloride 102 96 - 110 mmol/L LAB CHEMISTRY METHOD 03/25/2024 1:04 PM [facility] CO2 17(L) 21 - 32 mmol/L LAB CHEMISTRY METHOD 03/25/2024 1:04 PM [facility] Anion Gap 16(H) 3 - 11 LAB CHEMISTRY METHOD 03/25/2024 1:04 PM [facility] Glucose 107(H) 70 - 100 mg/dL LAB CHEMISTRY METHOD 03/25/2024 1:04 PM [facility] BUN 112(H) 5 - 25 mg/dL LAB CHEMISTRY METHOD 03/25/2024 1:04 PM [facility] Creatinine 13.30(HH) 0.70 - 1.30 mg/dL LAB CHEMISTRY METHOD 03/25/2024 1:04 PM [facility] eGFR 4(L) >=60 mL/min/1 .73m2 LAB CHEMISTRY METHOD 03/25/2024 1:04 PM [facility] Comment:Calculation based on the??Chronic Kidney Disease Epidemiology Collaboration (CKD-EPI) equation refit??without adjustment for race. BUN/Creatinine Ratio 8.4 LAB CHEMISTRY METHOD 03/25/2024 1:04 PM [facility] Calcium 8.5 8.5 - 10.5 mg/dL LAB CHEMISTRY METHOD 03/25/2024 1:04 PM [facility] Blood Venous blood specimen / Unknown Venipuncture / Unknown 03/25/2024 12:01 PM EST 03/25/2024 12:20 PM EST Brenda Cobian MD LAB BLOOD ORDERABLES [facility] [address] [place] [address], [place] [phone] * Culture urine (03/25/2024 8:26 AM EST) Pathologist [facility] Culture, Urine No growth 03/26/2024 10:25 AM EST [facility] Urine Urine specimen obtained by clean catch procedure / Unknown Non-blood Collection / Unknown 03/25/2024 8:26 AM EST 03/25/2024 9:54 AM EST Noman Conteh MD LAB MICROBIOLOGY - GENERAL ORDERABLES [facility] [address] [place] [address], [place] [phone] * Lindsey urine culture tube (03/25/2024 8:26 AM EST) [facility] Extra Tube Hold for add-ons. 03/25/2024 10:01 AM EST [facility] Comment:Auto resulted. Urine Urine specimen obtained by clean catch procedure / Unknown Non-blood Collection / Unknown 03/25/2024 8:26 AM EST 03/25/2024 8:54 AM EST Noman Conteh MD LAB URINE ORDERAB LES [facility] [address] [place] [address], [place] [phone] * (ABNORMAL) Urinalysis with reflex microscopic and culture (03/25/2024 8:26 AM EST) [facility] Specific [place] Urine 1.015 1.003 - 1.030 LAB URINALYSIS - AUTOMATED METHOD 03/25/2024 9:54 AM [facility] pH, Urine 6.5 5.0 - 8.0 pH LAB URINALYSIS - AUTOMATED METHOD 03/25/2024 9:54 AM [facility] Leukocytes, Urine Trace(A) Negative LAB URINALYSIS - AUTOMATED METHOD 03/25/2024 9:54 AM [facility] Nitrite, Urine Positive(A) Negative LAB URINALYSIS - AUTOMATED METHOD 03/25/2024 9:54 AM [facility] Protein, Urine >=300(A) <=Trace mg/dL LAB URINALYSIS - AUTOMATED METHOD 03/25/2024 9:54 AM [facility] Glucose, Urine 250(A) Negative mg/dL LAB URINALYSIS - AUTOMATED METHOD 03/25/2024 9:54 AM [facility] Ketones, Urine Negative Negative mg/dL LAB URINALYSIS - AUTOMATED METHOD 03/25/2024 9:54 AM [facility] Urobilinogen , Urine 0.2 0.2 - 1.0 mg/dL LAB URINALYSIS - AUTOMATED METHOD 03/25/2024 9:54 AM [facility] Bilirubin, Urine Negative Negative LAB URINALYSIS - AUTOMATED METHOD 03/25/2024 9:54 AM [facility] Blood, Urine Moderate(A) Negative LAB URINALYSIS - AUTOMATED METHOD 03/25/2024 9:54 AM [facility] RBC, Urine 10(H) 0 - 4 /HPF 03/25/2024 9:54 AM [facility] WBC, Urine 80(H) 0 - 4 /HPF 03/25/2024 9:54 AM [facility] Squamous Epithelial, Urine 100(H) 0 - 60 /LPF 03/25/2024 9:54 AM [facility] Crystals, Urine Moderate Amorphous Urate crystals. /LPF 03/25/2024 9:54 AM [facility] Bacteria, Urine Moderate(A) Negative /HPF 03/25/2024 9:54 AM [facility] Urine Urine specimen obtained by clean catch procedure / Unknown Non-blood Collection / Unknown 03/25/2024 8:26 AM EST 03/25/2024 8:54 AM EST Noman Conteh MD LAB URINE ORDERAB LES Performing Organization Address [facility] Co de Phone Number [facility] [address] [place] [address], * Hepatitis B surface antigen with reflex to confirmation (03/25/2024 8:17 AM EST) Hepatitis B Surface Ag Negative Negative LAB CHEMISTRY METHOD 03/25/2024 12:29 PM EST [facility] Blood Venous blood specimen / Unknown Venipuncture / Unknown 03/25/2024 8:17 AM EST 03/25/2024 8:57 AM EST Narrative [facility] - 03/25/2024 12:29 PM EST Over the counter supplements containing high doses of biotin may interfere with this assay. ??If interference is suspected, patients shoud be retested after refraining from biotin supplements for 72 hours. Noman Conteh MD LAB BLOOD ORDERAB LES Performing Organization Address City/[facility] Co de Phone Number [facility] [address] [place] [address], * Hepatitis B surface antibody quantitative (03/25/2024 8:17 AM EST) Hepatitis B Surface Ab Negative Negative LAB CHEMISTRY METHOD 03/25/2024 12:18 PM EST [facility] Hepatitis B Surface Ab Quantitative 7.1 mIU/mL LAB CHEMISTRY METHOD 03/25/2024 12:18 PM EST [facility] Blood Venous blood specimen / Unknown Venipuncture / Unknown 03/25/2024 8:17 AM EST 03/25/2024 8:57 AM EST Narrative [facility] - 03/25/2024 12:18 PM EST >=10 mIU/mL is considered to be consistent with immunity. Noman Conteh MD LAB BLOOD ORDERAB LES Performing Organization Address [facility]/ZIP Co de Phone Number [facility] [address] [place] [address], [place] [phone] * (ABNORMAL) Venous blood gas (03/25/2024 8:17 AM EST) pH, [place] 7.12(LL) 7.32 - 7.42 pH 03/25/2024 9:04 AM EST [facility] pCO2, [place] 48 41 - 51 mmHg 03/25/2024 9:04 AM EST [facility] pO2, [place] 54(H) 25 - 40 mmHg 03/25/2024 9:04 AM [facility] HCO3, Venous 14.2(L) 22.0 - 26.0 mmol/L 03/25/2024 9:04 AM [facility] O2 Sat, [place] 82.3 % 03/25/2024 9:04 AM EST [facility] Base Excess, [place] -13.3(L) -2.0 - 2.0 mmol/L 03/25/2024 9:04 AM EST [facility] Blood Venous blood specimen / Unknown Venipuncture / Unknown 03/25/2024 8:17 AM EST 03/25/2024 8:56 AM EST Noman Conteh MD LAB BLOOD ORDERAB LES [facility] [address] [place] [address], [place] [phone] * (ABNORMAL) CBC auto differential (03/25/2024 8:17 AM EST) WBC 14.1(H) 4.8 - 10.8 K/[facility] LAB HEMETOLOGY METHOD 03/25/2024 9:28 AM [facility] RBC 4.70 4.50 - 5.50 M/[facility] LAB HEMETOLOGY METHOD 03/25/2024 9:28 AM [facility] Hemoglobin 10.6(L) 13.5 - 17.5 g/dL LAB HEMETOLOGY METHOD 03/25/2024 9:28 AM [facility] Hematocrit 35.8(L) 42.0 - 54.0 % LAB HEMETOLOGY METHOD 03/25/2024 9:28 AM [facility] MCV 76.5(L) 79.0 - 98.0 FL LAB HEMETOLOGY METHOD 03/25/2024 9:28 AM [facility] MCH 22.6(L) 27.0 - 32.0 pcg LAB HEMETOLOGY METHOD 03/25/2024 9:28 AM [facility] MCHC 29.6(L) 32.0 - 37.0 g/dL LAB HEMETOLOGY METHOD 03/25/2024 9:28 AM [facility] RDW 17.4(H) 11.0 - 15.0 % LAB HEMETOLOGY METHOD 03/25/2024 9:28 AM [facility] Platelets 247 130 - 400 K/mcL LAB HEMETOLOGY METHOD 03/25/2024 9:28 AM [facility] MPV LAB HEMETOLOGY METHOD 03/25/2024 9:28 AM [facility] Comment:Not Measured NRBC 0.0 <1.0 % LAB HEMETOLOGY METHOD 03/25/2024 9:28 AM [facility] NRBC Absolute 0.00 <0.10 K/mcL LAB HEMETOLOGY METHOD 03/25/2024 9:28 AM [facility] Neutrophils Relative 76.7 % LAB HEMETOLOGY METHOD 03/25/2024 9:28 AM [facility] Lymphocytes Relative 9.1 % LAB HEMETOLOGY METHOD 03/25/2024 9:28 AM [facility] Monocytes Relative 12.1 % LAB HEMETOLOGY METHOD 03/25/2024 9:28 AM [facility] Eosinophils Relative 1.4 % LAB HEMETOLOGY METHOD 03/25/2024 9:28 AM [facility] Basophils Relative 0.1 % LAB HEMETOLOGY METHOD 03/25/2024 9:28 AM [facility] Immature Granulocytes Relative 0.6 % LAB HEMETOLOGY METHOD 03/25/2024 9:28 AM [facility] Neutrophils Absolute 10.77(H) 1.50 - 7.00 K/mcL LAB HEMETOLOGY METHOD 03/25/2024 9:28 AM [facility] Lymphocytes Absolute 1.28 1.00 - 5.00 K/mcL LAB HEMETOLOGY METHOD 03/25/2024 9:28 AM [facility] Monocytes Absolute 1.70(H) 0.20 - 1.00 K/mcL LAB HEMETOLOGY METHOD 03/25/2024 9:28 AM [facility] Eosinophils Absolute 0.19 0.00 - 0.50 K/mcL LAB HEMETOLOGY METHOD 03/25/2024 9:28 AM [facility] Basophils Absolute 0.02 0.00 - 0.20 K/mcL LAB HEMETOLOGY METHOD 03/25/2024 9:28 AM [facility] Immature Granulocytes Absolute 0.09(H) 0.00 - 0.03 K/mcL LAB HEMETOLOGY METHOD 03/25/2024 9:28 AM [facility] Blood Venous blood specimen / Unknown Venipuncture / Unknown 03/25/2024 8:17 AM EST 03/25/2024 8:57 AM EST Noman Conteh MD LAB BLOOD ORDERAB LES Performing Organization Address City/[facility]/ZIP Co de Phone Number [facility] [address] [place] [address], * Ammonia (03/25/2024 8:17 AM EST) Ammonia 20 11 - 35 mcmol/L LAB CHEMISTRY METHOD 03/25/2024 9:17 AM EST [facility] Blood Venous blood specimen / Unknown Venipuncture / Unknown 03/25/2024 8:17 AM EST 03/25/2024 8:57 AM EST Noman Conteh MD LAB BLOOD ORDERAB LES Performing Organization Address [facility]/ZIP Co de Phone Number [facility] [address] [place] [address], * (ABNORMAL) Comprehensive metabolic panel (03/25/2024 8:17 AM EST) Sodium 134 133 - 145 mmol/L LAB CHEMISTRY METHOD 03/25/2024 9:50 AM [facility] Potassium 6.8(HH) 3.5 - 5.5 mmol/L LAB CHEMISTRY METHOD 03/25/2024 9:50 AM [facility] Chloride 99 96 - 110 mmol/L LAB CHEMISTRY METHOD 03/25/2024 9:50 AM [facility] CO2 17(L) 21 - 32 mmol/L LAB CHEMISTRY METHOD 03/25/2024 9:50 AM [facility] Anion Gap 18(H) 3 - 11 LAB CHEMISTRY METHOD 03/25/2024 9:50 AM [facility] Glucose 144(H) 70 - 100 mg/dL LAB CHEMISTRY METHOD 03/25/2024 9:50 AM [facility] BUN 115(H) 5 - 25 mg/dL LAB CHEMISTRY METHOD 03/25/2024 9:50 AM [facility] Comment:Results verified by repeat testing Creatinine 13.00(HH) 0.70 - 1.30 mg/dL LAB CHEMISTRY METHOD 03/25/2024 9:50 AM [facility] eGFR 4(L) >=60 mL/min/1 .73m2 LAB CHEMISTRY METHOD 03/25/2024 9:50 AM [facility] Comment:Calculation based on the??Chronic Kidney Disease Epidemiology Collaboration (CKD-EPI) equation refit??without adjustment for race. BUN/Creatinine Ratio 8.8 LAB CHEMISTRY METHOD 03/25/2024 9:50 AM [facility] Calcium 8.8 8.5 - 10.5 mg/dL LAB CHEMISTRY METHOD 03/25/2024 9:50 AM [facility] AST (SGOT) 24 10 - 42 unit/L LAB CHEMISTRY METHOD 03/25/2024 9:50 AM [facility] ALT (SGPT) 7(L) 10 - 60 unit/L LAB CHEMISTRY METHOD 03/25/2024 9:50 AM [facility] Alkaline Phosphatase 163(H) 42 - 121 unit/L LAB CHEMISTRY METHOD 03/25/2024 9:50 AM [facility] Total Protein 7.1 6.0 - 8.0 g/dL LAB CHEMISTRY METHOD 03/25/2024 9:50 AM [facility] Albumin 2.7(L) 3.2 - 5.0 g/dL LAB CHEMISTRY METHOD 03/25/2024 9:50 AM [facility] Total Bilirubin 0.4 0.0 - 1.4 mg/dL LAB CHEMISTRY METHOD 03/25/2024 9:50 AM [facility] Blood Venous blood specimen / Unknown Venipuncture / Unknown 03/25/2024 8:17 AM EST 03/25/2024 8:57 AM EST Noman Conteh MD LAB BLOOD ORDERAB LES Performing Organization Address City/[facility]/ZIP Co de Phone Number [facility] [address] [place] [address], * ECG 12 lead (03/25/2024 7:58 AM EST) Ventricular Rate ECG 70 BPM GEMUSE Atrial Rate 70 BPM GEMUSE P-R Interval 174 ms GEMUSE QRS Duration 98 ms GEMUSE Q-T Interval 410 ms GEMUSE QTc 442 ms GEMUSE P Wave [place] 3 degrees GEMUSE R [place] 6 degrees GEMUSE T [place] 87 degrees GEMUSE ECG Interpretation Normal sinus rhythm Poor R wave progression When compared with ECG of 10-AUG-2020 02:25, No significant change was found Confirmed by Meena MACDONALD YUFENG ([id number]) on 03/25/2024 9:18:31 AM GEMUSE 03/25/2024 7:58 AM EST 03/25/2024 9:18 AM EST Noman Conteh MD ECG ORDERABLES Performing Organization Address City/[facility]/ZIP Co de Phone Number [email or web address] * XR Chest 1 View (03/25/2024 7:46 AM EST) Anatomical Region Laterality Modality Body Radiographic Fawn ging 03/25/2024 8:45 AM EST Impressions 03/25/2024 8:46 AM EST Small right pleural effusion with underlying atelectasis and/or infiltrate. The left lung remains clear. Cardiomegaly, new since 08/10/2020. Code 03875 -------- FINAL REPORT -------- Dictated By: Daren Sol Dictated Date: 03/25/2024 08:45 ET Assigned Physician: Daren Sol Reviewed and Electronically Signed By: Daren Sol Signed Date: 03/25/2024 08:46 ET Workstation ID: [id number] Transcribed By: Self Edit Transcribed Date: 03/25/2024 [...] lung remains clear. Cardiomegaly, new since08/10/2020. Code 04100 -------- FINAL REPORT -------- Dictated By: Daren Sol Dictated Date: 03/25/2024 08:45 ET Assigned Physician: Daren Sol Reviewed and Electronically Signed By: Daren Sol Signed Date: 03/25/2024 08:46 ET Workstation ID: [id number] Transcribed By: Self Edit Transcribed Date: 03/25/2024 08:45 ET Noman Conteh MD IMG XR PROCEDURES * ECG-Annotated (03/25/2024) Provider Onbase ECG ORDERABLES documented in this encounter Visit Diagnoses Diagnosis Uremia- Primary Unspecified renal failure Acute kidney injury superimposed on chronic kidney disease ([facility]) Hyperkalemia Hyperpotassemia Urinary tract infection without hematuria, site unspecified documented in this encounter Admitting Diagnoses Diagnosis Uremia Unspecified renal failure documented in this encounter Administered Medications Inactive Administered Medications - up to 3 most recent administrations Medication Order MAR Action Action Date Dose Rate Site acetaminophen (TYLENOL) tablet 1,000 mg 1,000 mg, oral, Every 8 hours scheduled, First dose on Mon03/27/24 at 1430 albuterol 2.5 mg /3 mL (0.083 %) nebulizer solution 2.5 mg 2.5 mg, nebulization, Every 6 hours PRN, wheezing, Starting on Mon03/25/24 at 1450 aspirin EC tablet 81 mg 81 mg, oral, Daily, First dose on Mon03/26/24 at 0900, Do not crush, chew, or split. Given 03/27/2024 1:08 PM EST 81 mg Given 03/26/2024 8:58 AM EST 81 mg atorvastatin (LIPITOR) tablet 40 mg 40 mg, oral, Daily, First dose on Mon03/26/24 at 0900 Given 03/27/2024 1:08 PM EST 40 mg Given 03/26/2024 8:58 AM EST 40 mg cefTRIAXone (ROCEPHIN) 1 g in sterile water 10 mL IV syringe 1 g, intravenous, at 200 mL/hr, Administer over 3 Minutes, Once, On Mon03/25/24 at 1112, For 1 dose, Do not administer simultaneously with any calcium containing solutions via a Y-site in any patient., Indication: Urinary Tract/Genitourinary Given 03/25/2024 11:40 AM EST 1 g 20 0 mL/hr cefTRIAXone (ROCEPHIN) 1 g in sterile water 10 mL IV syringe 1 g, intravenous, at 200 mL/hr, Administer over 3 Minutes, Every 24 hours, First dose (after last modification) on Mon03/27/24 at 1130, For 7 doses, Do not administer simultaneously with any calcium containing solutions via a Y-site in any patient., Indication: Urinary Tract/Genitourinary Given 03/27/2024 1:08 PM EST 1 g 200 mL/hr dextrose (D50W) 50% injection 12.5 g 12.5 g, intravenous, Every 15 min PRN, low blood sugar, moderate hypoglycemia *Patient is Unconscious, NPO, unable to swallow: BG 54 - 69 mg/dl*, Starting on Mon03/25/24 at 1449 dextrose (D50W) 50% injection 25 g 25 g, intravenous, Every 15 min PRN, low blood sugar, severe hypoglycemia *Patient is Unconscious, NPO, unable to swallow: BG LESS than 54 mg/dL*, Starting on Mon03/25/24 at 1449 dextrose 15 gram/60 mL oral solution 15 g 15 g, oral, Every 15 min PRN, low blood sugar, hypoglycemia *Patient conscious AND able to drink and swallow safely*, Starting on Mon03/25/24 at 1449 dextrose 15 gram/60 mL oral solution 30 g 30 g, oral, Every 15 min PRN, low blood sugar, hypoglycemia *Patient conscious AND able to drink and swallow safely*, Starting on Mon03/25/24 at 1449 doxazosin (CARDURA) tablet 4 mg 4 mg, oral, Nightly, First dose on Mon03/25/24 at 2100, Hold if sbp < 110 Given 03/26/2024 8:56 PM EST 4 mg Given 03/25/2024 10:10 PM EST 4 mg furosemide (LASIX) tablet 80 mg 80 mg, oral, Daily, First dose on Mon03/26/24 at 0900, Hold If sbp < 110 Given 03/27/2024 1:08 PM EST 80 mg Given 03/26/2024 8:58 AM EST 80 mg Glucagon HCl (rDNA) injection 1 mg 1 mg, intramuscular, Once as needed, low blood sugar, severe hypoglycemia, Starting on Mon03/25/24 at 1449, For 1 dose heparin (UFH) injection 5,000 Units 5,000 Units, subcutaneous, Every 12 hours scheduled, First dose on Mon03/26/24 at 2100, Enter Indication for use of heparin (UFH) instead of enoxaparin (LOVENOX): (free text): ESRD, Indication: VTE Prophylaxis, Indications: Prophylaxis of Venous Thromboembolism Given 03/27/2024 1:08 PM EST 5,000 Units Left Upper Abdomen Given 03/26/2024 8:56 PM EST 5,000 Units L eft Lower Abdomen hydrALAZINE (APRESOLINE) injection 10 mg 10 mg, intravenous, Once, On Mon03/27/24 at 0445, For 1 dose Given 03/27/2024 4:36 AM EST 10 mg insulin lispro injection 2-12 Units 2-12 Units, subcutaneous, 4 times daily before meals and nightly, First dose on Mon03/25/24 at 1630, Indication: Total Daily Dose (TDD) 40 - 80 units. Correction Scale: Moderate Dose Administer with meal and/or mealtime dose of insulin to correct high blood glucose If mealtime insulin dose not given (e.g. patient NPO or not eating), still administer correction factor for high blood glucose Given 03/26/2024 9:58 PM EST 8 Units Left Lower Abdomen Given 03/26/2024 12:30 PM EST 2 Units L eft Lower Abdomen Given 03/26/2024 8:57 AM EST 2 Units Le ft Upper Arm (Back) ipratropium-albuteroL (DUONEB) 0.5-2.5 mg/3 mL nebulizer solution 3 mL 3 mL, nebulization, 4 times daily, First dose on Mon03/26/24 at 1600 Given 03/26/2024 8:08 PM EST 3 mL Given 03/26/2024 4:05 PM EST 3 mL lidocaine 4 % patch 1 patch 1 patch, Topical, Administer over 12 Hours, Daily, First dose on Mon03/27/24 at 1145, Apply to area of pain Patch Applied 03/27/2024 1:08 PM EST 1 patch Left Arm lidocaine 4 % patch 1 patch 1 patch, Topical, Administer over 12 Hours, Daily, First dose on Mon03/27/24 at 1515, Apply to right chest Patch Applied 03/27/2024 3:59 PM EST 1 patch Left Arm losartan (COZAAR) tablet 25 mg 25 mg, oral, Daily, First dose on Mon03/26/24 at 0900, Hold If sbp < 110 Given 03/27/2024 1:08 PM EST 25 mg Given 03/26/2024 8:58 AM EST 25 mg magnesium sulfate 2 gram/50 mL (4 %) IVPB 2 g 2 g, intravenous, at 25 mL/hr, Administer over 2 Hours, Every 2 hours, First dose on Mon03/27/24 at 1145, For 2 doses New Bag 03/27/2024 3:56 PM EST 2 g 25 mL/hr New Bag 03/27/2024 1:07 PM EST 2 g 25 mL/hr naloxone (NARCAN) injection 0.1 mg 0.1 mg, intravenous, Once, On Mon03/25/24 at 0801, For 1 dose Given 03/25/2024 8:28 AM EST 0.1 mg pantoprazole (PROTONIX) EC tablet 40 mg 40 mg, oral, Every morning before breakfast, First dose on Mon03/26/24 at 0700, Do not crush, chew, or split. Given 03/27/2024 6:50 AM EST 40 mg Pump Refill 03/26/2024 6:38 AM EST 40 mg pantoprazole (PROTONIX) EC tablet 40 mg 40 mg, oral, 2 times daily before meals, First dose (after last modification) on Mon03/27/24 at 1630, Give on an empty stomach Do not crush, chew, or split. predniSONE (DELTASONE) tablet 20 mg 20 mg, oral, 2 times daily with meals, First dose on Mon03/26/24 at 1700, For 3 doses Given 03/27/2024 1:08 PM EST 20 mg Given 03/26/2024 5:22 PM EST 20 mg pregabalin (LYRICA) capsule 75 mg 75 mg, oral, Daily, First dose on Mon03/26/24 at 0900 Given 03/27/2024 1:08 PM EST 75 mg Given 03/26/2024 8:58 AM EST 75 mg documented in this encounter Discontinued Medications Medication Sig Discontinue Reason Start Date End Da te Velphoro 500 mg chewable tablet Chew 1 tablet (500 mg total) 3 (three) times a day with meals. Entered in Error 03/25/2024 predniSONE (DELTASONE) 10 mg tablet Take 2 tablets (20 mg total) by mouth 1 (one) time each day for 5 days, THEN 1 tablet (10 mg total) 1 (one) time each day for 5 days. 03/27/2024 03/27/2024 acetaminophen (TYLENOL) 500 mg tablet Take 2 tablets (1,000 mg total) by mouth every 6 (six) hours if needed for mild pain for up to 10 days. 03/27/2024 03/27/2024 cefpodoxime (VANTIN) 200 mg tablet Take 1 tablet (200 mg total) by mouth 1 (one) time each day for 10 days. 03/27/2024 03/27/2024 oxyCODONE (ROXICODONE) 5 mg immediate release tablet Take 1 tablet (5 mg total) by mouth 3 (three) times a day if needed for severe pain. Max Daily Amount: 15 mg Stop Taking at Discharge 03/27/2024 documented as of this encounter Historical Medications * This list may reflect changes made after this encounter. Medication Sig Dispensed Refills Start Date End Date Stimulant Laxative Plus 8.6-50 mg per tablet Take 1 tablet by mouth 1 (one) time each day if needed for constipation. 02/21/2024 pregabalin (LYRICA) 75 mg capsule Take 1 capsule (75 mg total) by mouth 1 (one) time each day. Max Daily Amount: 75 mg 02/24/2024 omeprazole (PriLOSEC) [address] capsule Take 1 capsule (20 mg total) by mouth 1 (one) time each day before breakfast. 03/08/2024 losartan (COZAAR) 25 mg tablet Take 1 tablet (25 mg total) by mouth 1 (one) time each day. ipratropium-albuteroL (DUONEB) 0.5-2.5 mg/3 mL nebulizer solution Take 3 mL by nebulization 4 (four) times a day if needed for wheezing or shortness of breath. 01/29/2024 insulin lispro 100 unit/mL injection Inject 2 Units under the skin 3 (three) times a day before meals. 2-10 units subcutaneously three times daily 08/29/2023 Lantus Solostar U-100 Insulin 100 unit/mL (3 mL) injection pen Inject 22 Units under the skin at bedtime. 03/04/2024 hydrALAZINE (APRESOLINE) 25 mg tablet Take 1 tablet (25 mg total) by mouth 3 (three) times a day. 01/01/2024 furosemide (LASIX) 80 mg tablet Take 1 tablet (80 mg total) by mouth 1 (one) time each day. 02/24/2024 Trelegy Ellipta 200-62.5-25 mcg inhaler Inhale 1 puff (200 mcg total) by mouth 1 (one) time each day. doxazosin (CARDURA) 4 mg tablet Take 1 tablet (4 mg total) by mouth at bedtime. at bedtime 03/22/2024 atorvastatin (LIPITOR) 40 mg tablet Take 1 tablet (40 mg total) by mouth daily. 10/22/2020 [place] Low Dose Aspirin 81 mg EC tablet Take 1 tablet (81 mg total) by mouth daily. 10/22/2020 allopurinoL (ZYLOPRIM) 100 mg tablet Take 1 tablet (100 mg total) by mouth 3 (three) times a week. After dialysis 03/08/2024 Ventolin HFA 90 mcg/actuation inhaler Inhale 2 puffs by mouth every 4 (four) hours if needed for shortness of breath. Velphoro 500 mg chewable tablet Chew 1 tablet (500 mg total) 3 (three) times a day with meals. 03/25/2024 oxyCODONE (ROXICODONE) 5 mg immediate release tablet Take 1 tablet (5 mg total) by mouth 3 (three) times a day if needed for severe pain. Max Daily Amount: 15 mg 03/27/19 added in this encounter Active and Recently Administered Medications Times are shown in EST. Scheduled Medication Order 03/25/2024 03/26/2024 03/27/2024 acetaminophen (TYLENOL) tablet 1,000 mg 1,000 mg, oral, Every 8 hours scheduled, First dose on Mon03/27/24 at 1430 1438 (Not Given - Provider: Mariam Becker RN - Reason: Patient/Resident/Agent refused - education provided ) aspirin EC tablet 81 mg 81 mg, oral, Daily, First dose on Mon03/26/24 at 0900, Do not crush, chew, or split. 0858 (Given - Provider: Kaye Cox RN) 1308 (Given - Provider: Mariam Becker, RN - Comment: pt in dialysis,see order) atorvastatin (LIPITOR) tablet 40 mg 40 mg, oral, Daily, First dose on Mon03/26/24 at 0900 0858 (Given - Provider: Kaye Cox RN) 1308 (Given - Provider: Mariam Becker RN - Comment: pt in dialysis,see order) cefTRIAXone (ROCEPHIN) 1 g in sterile water 10 mL IV syringe (COMPLETED) 1 g, intravenous, at 200 mL/hr, Administer over 3 Minutes, Once, On Mon03/25/24 at 1112, For 1 dose, Do not administer simultaneously with any calcium containing solutions via a Y-site in any patient., Indication: Urinary Tract/Genitourinary 1140 (Given - Provider: Katerin Muir RN) cefTRIAXone (ROCEPHIN) 1 g in sterile water 10 mL IV syringe 1 g, intravenous, at 200 mL/hr, Administer over 3 Minutes, Every 24 hours, First dose (after last modification) on Mon03/27/24 at 1130, For 7 doses, Do not administer simultaneously with any calcium containing solutions via a Y-site in any patient., Indication: Urinary Tract/Genitourinary 1308 (Given - Provider: Mariam Becker RN - Comment: pt in dialysis,see order) doxazosin (CARDURA) tablet 4 mg 4 mg, oral, Nightly, First dose on Mon03/25/24 at 2100, Hold if sbp < 110 2210 (Given - Provider: Tova Ohara RN - Comment: med pass) 2055 (Given - Provider: Tiffanie Golden RN) furosemide (LASIX) tablet 80 mg 80 mg, oral, Daily, First dose on Mon03/26/24 at 0900, Hold If sbp < 110 0858 (Given - Provider: Kaye Cox RN) 1308 (Given - Provider: Mariam Becker RN - Comment: pt in dialysis,see order) heparin (UFH) injection 5,000 Units 5,000 Units, subcutaneous, Every 12 hours scheduled, First dose on Mon03/26/24 at 2100, Enter Indication for use of heparin (UFH) instead of enoxaparin (LOVENOX): (free text): ESRD, Indication: VTE Prophylaxis, Indications: Prophylaxis of Venous Thromboembolism 2055 (Given - Provider: Tiffanie Golden RN) 1308 (Given - Provider: Mariam Becker RN - Comment: pt in dialysis,see order) hydrALAZINE (APRESOLINE) injection 10 mg (COMPLETED) 10 mg, intravenous, Once, On Mon03/27/24 at 0445, For 1 dose 0436 (Given - Provider: Tiffanie Golden RN) hydrALAZINE (APRESOLINE) injection 10 mg 10 mg, intravenous, Once, On Mon03/27/24 at 1445, For 1 dose 1452 (Not Given - Provider: Mariam Becker RN - Reason: See Provider Order) insulin lispro injection 2-12 Units 2-12 Units, subcutaneous, 4 times daily before meals and nightly, First dose on Mon03/25/24 at 1630, Indication: Total Daily Dose (TDD) 40 - 80 units. Correction Scale: Moderate Dose Administer with meal and/or mealtime dose of insulin to correct high blood glucose If mealtime insulin dose not given (e.g. patient NPO or not eating), still administer correction factor for high blood glucose 1717 (Not Given - Provider: Kaye Cox RN - Reason: Order parameters not met)2211 (Given - Provider: Tova Ohara RN - Comment: med pass) 0857 (Given - Provider: Kaye Cox RN)1230 (Given - Provider: Kaye Cox RN)1712 (Not Given - Provider: Kaye Cox RN - Reason: Order parameters not met)2158 (Given - Provider: Tiffanie Golden RN) 0730 (Not Given - Provider: Mariam Becker RN - Reason: Other - Comment: pt going to dialysis)1339 (Not Given - Provider: Mariam Becker RN - Reason: Other - Comment: pt just back from dialysis, didn't want to eat)1630 (Canceled Entry - Provider: Automatic Discharge Provider - Comment: Automatically canceled at discontinue of medication order) ipratropium-albuteroL (DUONEB) 0.5-2.5 mg/3 mL nebulizer solution 3 mL 3 mL, nebulization, 4 times daily, First dose on Mon03/26/24 at 1600 1605 (Given - Provider: Snow Awan)2007 (Given - Provider: Sonw Awan) 0831 (Not Given - Provider: Ines Shepherd - Reason: Patient not available)1137 (Not Given - Provider: Ines Shepherd - Reason: Patient not available)1718 (Not Given - Provider: Snow Awan - Reason: Patient/Resident/Agent refused - education provided - Comment: pt refused)1999 (Canceled Entry - Provider: Automatic Discharge Provider - Comment: Automatically canceled at discontinue of medication order) lidocaine 4 % patch 1 patch 1 patch, Topical, Administer over 12 Hours, Daily, First dose on Mon03/27/24 at 1145, Apply to area of pain 1308 (Patch Applied - Provider: Mariam Becker RN - Comment: pt in dialysis,see order)1600 (Not Given - Provider: Mariam Becker RN - Reason: Other - Comment: med given) lidocaine 4 % patch 1 patch 1 patch, Topical, Administer over 12 Hours, Daily, First dose on Mon03/27/24 at 1515, Apply to right chest 1559 (Patch Applied - Provider: Mariam Becker RN)1855 (Due: Patch Removed - Provider: Automatic Discharge Provider - Comment: Time automatically adjusted from order being discontinued) losartan (COZAAR) tablet 25 mg 25 mg, oral, Daily, First dose on Mon03/26/24 at 0900, Hold If sbp < 110 0858 (Given - Provider: Kaye Cox RN) 1308 (Given - Provider: Mariam Becker RN - Comment: pt in dialysis,see order) magnesium sulfate 2 gram/50 mL (4 %) IVPB 2 g (COMPLETED) 2 g, intravenous, at 25 mL/hr, Administer over 2 Hours, Every 2 hours, First dose on Mon03/27/24 at 1145, For 2 doses 1307 (New Bag - Provider: Mariam Becker RN - Comment: pt in dialysis, just returned to unit)1555 (Stopped - Provider: Mariam Becker RN)1556 (New Bag - Provider: Mariam Becker RN)1756 (Due: Stopped - Provider: Mariam Becker RN) naloxone (NARCAN) injection 0.1 mg (COMPLETED) 0.1 mg, intravenous, Once, On Mon03/25/24 at 0801, For 1 dose 0828 (Given - Provider: Katerin Muir RN) pantoprazole (PROTONIX) EC tablet 40 mg (CANCELED) 40 mg, oral, Every morning before breakfast, First dose on Mon03/26/24 at 0700, Do not crush, chew, or split. 0638 (Pump Refill - Provider: Tova Ohara RN) 0650 (Given - Provider: Tova Ohara RN) pantoprazole (PROTONIX) EC tablet 40 mg 40 mg, oral, 2 times daily before meals, First dose (after last modification) on Mon03/27/24 at 1630, Give on an empty stomach Do not crush, chew, or split. 1630 (Canceled Entry - Provider: Automatic Discharge Provider - Comment: Automatically canceled at discontinue of medication order) predniSONE (DELTASONE) tablet 20 mg 20 mg, oral, 2 times daily with meals, First dose on Mon03/26/24 at 1700, For 3 doses 1722 (Given - Provider: Kaye Cox RN) 1308 (Given - Provider: Mariam Becker, DONTRELL - Comment: pt in dialysis,see order)1700 (Canceled Entry - Provider: Automatic Discharge Provider - Comment: Automatically canceled at discontinue of medication order) pregabalin (LYRICA) capsule 75 mg 75 mg, oral, Daily, First dose on Mon03/26/24 at 0900 0858 (Given - Provider: Kaye Cox RN) 1308 (Given - Provider: Mariam Becker, RN - Comment: pt in dialysis,see order) PRN Medication Order 03/25/2024 03/26/2024 03/27/2024 albuterol 2.5 mg /3 mL (0.083 %) nebulizer solution 2.5 mg 2.5 mg, nebulization, Every 6 hours PRN, wheezing, Starting on Mon03/25/24 at 1450 dextrose (D50W) 50% injection 12.5 g 12.5 g, intravenous, Every 15 min PRN, low blood sugar, moderate hypoglycemia *Patient is Unconscious, NPO, unable to swallow: BG 54 - 69 mg/dl*, Starting on Mon03/25/24 at 1449 dextrose (D50W) 50% injection 25 g 25 g, intravenous, Every 15 min PRN, low blood sugar, severe hypoglycemia *Patient is Unconscious, NPO, unable to swallow: BG LESS than 54 mg/dL*, Starting on Mon03/25/24 at 1449 dextrose 15 gram/60 mL oral solution 15 g 15 g, oral, Every 15 min PRN, low blood sugar, hypoglycemia *Patient conscious AND able to drink and swallow safely*, Starting on Mon03/25/24 at 1449 dextrose 15 gram/60 mL oral solution 30 g 30 g, oral, Every 15 min PRN, low blood sugar, hypoglycemia *Patient conscious AND able to drink and swallow safely*, Starting on Mon03/25/24 at 1449 Glucagon HCl (rDNA) injection 1 mg 1 mg, intramuscular, Once as needed, low blood sugar, severe hypoglycemia, Starting on Mon03/25/24 at 1449, For 1 dose senna-docusate (PERICOLACE) 8.6-50 mg per tablet 1 tablet 1 tablet, oral, Daily PRN, constipation, Starting on Mon03/25/24 at 1413 documented in this encounter Orders Medications Ordered That Gerson ht Not Have Been Administered Count Last Ordered Date First Ordered Date acetaminophen (TYLENOL) tablet 1,000 mg 1 0 03/27/2024 hydrALAZINE (APRESOLINE) injection 10 mg 1 03/27/2024 pantoprazole (PROTONIX) EC tablet 40 mg 1 0 03/27/2024 albuterol 2.5 mg /3 mL (0.08 3 %) nebulizer solution 2.5 mg 1 03/25/2024 cefTRIAXone (ROCEPHIN) 1 g i n sterile water 10 mL IV syringe 1 03/25/2024 dextrose (D50W) 50% injection 12.5 g 1 03/07 dextrose (D50W) 50% injection 25 g 1 2024 dextrose 15 gram/60 mL oral solution 15 g 1 03/25/2024 dextrose 15 gram/60 mL oral solution 30 g 1 03/25/2024 Glucagon HCl (rDNA) injection 1 mg 1 2024 ipratropium-albuteroL (DUONE B) 0.5-2.5 mg/3 mL nebulizer solution 3 mL 1 03/25/2024 senna-docusate (PERICOLACE) 8.6-50 mg per tablet 1 tablet 1 03/25/2024 Lab Orders Without Results Count Last Ordered D ate First Ordered Date POCT GLUCOSE, BLOOD 6 03/27/2024 03/25/19 Nursing Count Last Ordered Date First Orde red Date STRAIGHT CATH 1 03/25/2024 Consult Count Last Ordered Date First Orde red Date POST ACUTE HOME HEALTH CARE REQUEST 1 03/27 Dialysis Count Last Ordered Date First Orde red Date HEMODIALYSIS INPATIENT 2 03/26/202403/25 Admission Count Last Ordered Date First Orde red Date ADMIT TO INPATIENT 1 03/25/2024 Transfer Count Last Ordered Date First Orde red Date ED TO FLOOR BED REQUEST 1 03/25/2024 Discharge Count Last Ordered Date First Orde red Date DISCHARGE PATIENT 1 03/27/2024 documented in this encounter Additional Health Concerns Infection Onset Date Last Indicated Resolved Time Respiratory Rule-Out 03/25/2024 03/25/2024 025 8:14 PM EST documented as of this encounter Care Teams Senior Quality Analyst Relationship Specialty Start Date End Date Physician, Pcp Unknown PCP - General 03/25/24 04/01/24 documented as of this encounter
--- OUTSIDE RECORDS SUMMARY | 2024-04-05 13:03 | XMS_ITS | Encounter Summary ---
Author Organization [facility], Address [address] [place] [address] Phone Care Team Providers Care Office Clerk Assistant Name Role Phone Jade Lewis MD Primary Care Provider + [phone] Encounter Details Date Type Department Care Team (Late st Contact Info) Description 03/01/2024 Treatment [facility], [address] [place] [address] Dylan Grace MD [address] [place] [address] [place] [address] Social History Tobacco Use Types Packs/Day Years [...] as of this encounter Miscellaneous Notes * Dialysis Note - Dylan Grace MD - 03/01/2024 12:00 AM EST Patient: Beau Marie : 1955 Note Type: Dialysis Rounds-Comp Service Date: 03/01/2024 This patient was personally seen for a complete visit as part of routine monthly dialysis care for end stage renal disease. Attending Shuttle Driver: DYLAN GRACE Dialysis Location: [facility] Schedule: Shift: HOME MEDICATIONS [facility] Outpatient Medications allopurinol 100 mg tablet [Take 1 tablet (100 mg total) by mouth 1 (one) time each day] atorvastatin 40 mg tablet Take 1 tablet by mouth once a day. [Prescriber: Shayla Donato NP] Marion Low Dose Aspirin 81 mg tablet,delayed release (DR/EC) Take 1 tablet by mouth once a day. cetirizine 10 mg tablet Take 1 tablet by mouth once a day. Coreg 6.25 mg tablet Take 1 tablet by mouth twice a day. doxazosin 4 mg tablet [Take 1 tablet (4 mg total) by mouth every night] Eliquis 5 mg tablet [TAKE 1 TABLET BY MOUTH TWO TIMES A DAY] Humalog Bony KwikPen U-100 100 unit/mL insulin pen, half-unit [Inject 4 to 8 Units into the skin 3 times a day before meal (max 30 units daily) Presc: Dr. Osvaldo Hanson] hydralazine 50 mg tablet [TAKE 1 TABLET BY MOUTH EVERY 8 HOURS] ipratropium-albuterol 0.5 mg-3 mg(2.5 mg base)/3 mL solution for nebulization Lantus Solostar U-100 Insulin 100 unit/mL (3 mL) insulin pen [Inject 60 Units under the skin nightly at bedtime Presc: Osvaldo Hanson] Lasix 80 mg tablet Take 1 tablet by mouth once a day. lisinopril 10 mg tablet Take 1 tablet by mouth once a day. mupirocin 2% ointment [Apply on the Exit site as directed] nifedipine 60 mg tablet extended release Take 1 tablet by mouth twice a day. omeprazole 20 mg capsule,delayed release(DR/EC) Take 1 capsule by mouth once a day. [In the morning before breakfast Prescriber: Chelsie Donato NP] Pain Relief ES (acetaminophen) 500 mg tablet [TAKE 1 TABLET BY MOUTH EVERY 4 HOURS NEEDED] pregabalin 75 mg capsule Take 1 capsule by mouth once a day. [Prescriber: Shayla Holguin NP] Velphoro 500 mg tablet,chewable Take 1 tablet by mouth three times a day with meals. Victoza 3-Shaheen 0.6 mg/0.1 mL (18 mg/3 mL) pen injector [Inject 0.6 MG into the skin every morning (up to max of 1.8 MG Per day) Presc: Osvaldo Hanson] Vitamin D2 1,250 mcg (50,000 unit) capsule Take 1 unit by mouth once a week. Wixela Inhub 100-50 mcg/dose blister with device Current [facility] Allergies Allergen: No Known Allergies Allergen: No Known Drug Allergies Allergen: No Known Food Allergies DIALYSIS PRESCRIPTION Treatment Data Treatment Date: 03/01/2024 started at: 6:02 AM Dialysate / Machine Temp (prescribed): 36.0*C Dialysate / Machine Temp (actual): 36.2*C BFR (prescribed): 450 BFR (average delivered): 460 DFR (prescribed): Manual 800 DFR (average delivered): 800 Prescribed Time: 03:30 Actual Time: 03:27 EDW (kg): 76.0 Dialyzer: 180NRe Optiflux Dialysate: 2.0 K, 2.50 Ca, 1.0 Mg, 100 Dextrose (YH0243) Sodium: 138 Bicarb: 38 Pre Dialysis Vitals Pre BP Sit: 197/93 Pre Wt (kg): 79.2 EDW Deviation (kg): 3.2 Temp: 98.7*F Post Dialysis Vitals Post BP Sit: 118/83 Post Wt (kg): 76.2 TREATMENT MEDICATIONS ORDERS Cinacalcet (Sensipar) 60 mg ORAL 3X Week 01/19/2024 - 01/17/2025 Heparin Sodium (Porcine) 1,000 Units/mL Catheter Lock Arterial 1900 units Arterial Red Port Every Treatment 08/09/2023 - 08/07/2024 Heparin Sodium (Porcine) 1,000 Units/mL Catheter Lock Venous 1900 units Venous Blue Port Every Treatment 08/09/2023 - 08/07/2024 Heparin Sodium (Porcine) 1,000 Units/mL Systemic 1000 units IVP Every Treatment 04/07/2023 - 04/05/2024 Heparin Sodium (Porcine) 1,000 Units/mL Systemic 3000 units IVP Every Treatment 04/07/2023 - 04/05/2024 Mircera 60 mcg IVP Every 2 weeks During Dialysis 02/28/2024 - 02/26/2025 Vitamin D (Calcitriol) Oral 1.50 mcg ORAL Every Treatment 05/15/2023 - 05/13/2024 BP AND FLUID ASSESSMENT Post BP Sit 118/83 - 03/01/2024 160/68 - 02/27/2024 144/86 - 02/25/2024 Post Wt (kg) 76.2 - 03/01/2024 75.8 - 02/27/2024 76.7 - 02/25/2024 EDW (kg) 76.0 - 03/01/2024 76.0 - 02/27/2024 76.0 - 02/25/2024 Deviation (kg) 0.2 - 03/01/2024 -0.2 - 02/27/2024 0.7 - 02/25/2024 ADEQUACY ASSESSMENT Missed Treatments 6 - Last 30 days 7 - Last 60 days Most recently missed on 03/05/2024 spKt/V (Daugirdas II) 1.32 (02/12/24) 1.22 (01/15/24) 1.18 (01/10/24) eKdrt/V 1.02 (01/15/24) 1.00 (01/10/24) 1.16 (01/01/24) % Urea Reduction 67 (02/12/24) 63 (01/10/24) 69 (01/01/24) BUN 67 (02/12/24) 60 (01/10/24) 75 (01/01/24) BUN Post Dialysis 22 (02/12/24) 22 (01/10/24) 23 (01/01/24) Creatinine 10.81 (02/12/24) 10.16 (01/10/24) 9.33 (12/08/23) Bicarbonate (CO2) 21 (02/12/24) 23 (01/10/24) 14 (12/08/23) Sodium 143 (02/12/24) 145 (01/10/24) 129 (12/08/23) ACCESS ASSESSMENT CVCatheter Tunneled Neck Active (In Use) - 08/09/2023 Placed - 08/08/2023 ANEMIA ASSESSMENT Hemoglobin 9.8 (03/01/24) 9.9 (02/21/24) 9.7 (02/14/24) Iron Saturation (TSat) 30 (02/21/24) 28 (02/12/24) 29 (01/10/24) Ferritin 800 (02/21/24) 907 (02/12/24) 782 (01/10/24) Iron 44 (02/21/24) 49 (02/12/24) 46 (01/10/24) TIBC 149 (02/21/24) 174 (02/12/24) 156 (01/10/24) Reticulocyte Hemoglobin 26.2 (12/08/23) 25.9 (09/06/23) 25.5 (06/07/23) MCV 82 (12/08/23) 85 (09/06/23) 79 (06/07/23) BMM ASSESSMENT Calcium 8.1 02/12/24 8.5 01/10/24 8.3 12/08/23 Corrected Calcium 8.3 02/12/24 8.6 01/10/24 8.3 12/08/23 Phosphorus 8.4 02/12/24 8.5 01/10/24 10.0 12/08/23 Calcium Phosphorus Product 68 02/12/24 72 01/10/24 83 12/08/23 PTH 705 02/12/24 906 01/10/24 560 12/08/23 Vitamin D, 25-OH, Total 22.2 12/08/23 Magnesium 1.9 02/12/24 1.7 01/10/24 1.6 12/08/23 Alkaline Phosphatase 97 02/12/24 127 01/10/24 147 12/08/23 Aluminum <5 12/08/23 NUTRITION ASSESSMENT Albumin 3.8 02/12/24 3.9 01/10/24 4.0 12/08/23 Potassium 5.5 02/12/24 4.1 01/10/24 6.2 12/08/23 eNPCR 0.86 01/15/24 0.84 01/10/24 0.94 01/01/24 Hemoglobin A1C 7.6 12/08/23 8.4 09/06/23 10.2 06/07/23 ADDITIONAL LABS WBC 8.53 (12/08/23) 9.07 (09/06/23) 9.69 (06/07/23) Cholesterol 103 (12/08/23) 91 (06/07/23) Triglycerides 72 (12/08/23) 197 (06/07/23) Hepatitis B Surface Ab 14 (12/08/23) 13 (06/07/23) ADDITIONAL COMMENT COMMENTS: Patient is stable Medications reviewed Physical Exam Vital signs: reviewed Lungs: clear Edema: none Impression 1.Adequacy: KT/V was assessed and the dialysis prescription was adjusted as needed. 2.Access: Dialysis access function is acceptable. 3.Hypertension: Blood pressure control and volume status are at goal. 4.Anemia: Labs reviewed and adjustments to regimen made according to anemia management protocol. 5.Mineral Bone Disease: Labs reviewed. Diet and medication adjustment as per protocol. 6.Nutrition: Labs reviewed. Dietary adjustments made in conjunction with insurance manager. 7.Transplant: The patient is being evaluated for a kidney transplant. 8. Other: Scheduled for amputation at [facility] next week reportedly. Signed by: DYLAN GRACE MD on 03/05/2024 at 02:03:41 PM Transcribed by: DYLAN GRACE MD on 03/05/2024 at 02:03:41 PM documented in this encounter Plan of Treatment Not on file documented as of this encounter Visit Diagnoses Not on filedocumented in this encounter Care Teams Office Clerk Assistant Relationship Specialty Start Date End Date Jade Lewis MD [address] [place], [place] [id number] PCP - General Internal Medicine 04/25/22 documented as of this encounter
--- OUTSIDE RECORDS SUMMARY | 2024-04-05 13:03 | XMS_ITS | Encounter Summary ---
Author Organization [facility], Address [address] [place] [address] Phone Care Team Providers Care Heater Helper Name Role Phone Jade Lewis MD Primary Care Provider + [phone] Encounter Details Date Type Department Care Team (Late st Contact Info) Description 03/08/2024 Orders Only [facility] [address] [place] [address] Car Mcdonald MD [facility] [place] [address] Social History Tobacco Use Types Packs/Day Years [...] Date/Time Associated Diagnosis Comments HD KINETICS Routine 03/08/2024 SPECIAL CHEMISTRY Routine 03/08/2024 POST CHEMISTRY Routine 03/08/2024 IMMUNO CHEMISTRY Routine 03/08/2024 HEMATOLOGY Routine 03/08/2024 CHEMISTRY Routine 03/08/2024 CHEMISTRY Routine 03/08/2024 [facility] RESULTS Routine 03/08/2024 documented in this encounter Results * [facility] Lab Results (03/08/2024) Pathologist [facility] spKt/V (Daugirdas II) 0.96 [facility] eKt/V ([place]) 0.77 [facility] WSTDKT/V 0.6 [facility] 03/08/2024 03/08/2024 [facility] Ordering Provider LAB BLOOD ORDERABLES Final Result [facility] Contact Performing lab Unknown, [place] * (ABNORMAL) HD KINETICS (03/08/2024) Pathologist [facility] % Urea Reduction 57(L) 65 - 80 % [facility] 03/08/2024 03/09/2024 12: 40 PM EST Narrative Resulting Agency Comment Specimen source: Plasma Car Mcdonald MD LAB BLOOD ORDERABLES Final Re sult [facility] See order comments or contact performing lab Unknown, [place] * (ABNORMAL) POST CHEMISTRY (03/08/2024) Pathologist [facility] BUN Post Dialysis 21(H) 6 - 19 mg/dL [facility] 03/08/2024 03/09/2024 12: 40 PM EST Narrative [facility] - 03/09/2024 Unless otherwise specified, test(s) performed at: [facility], [address] [place] [id number] TRAVELING BUYER: Homero Garcia M.D. For any questions, please call customer service at FREQUENCY:MONTHLY Resulting Agency Comment Specimen source: Plasma Car Mcdonald MD LAB BLOOD ORDERABLES Final Re sult [facility] See order comments or contact performing lab Unknown, [place] * IMMUNO CHEMISTRY (03/08/2024) Pathologist [facility] Hep B Surface Ag Negative Negative [facility] 03/08/2024 03/09/2024 12: 45 PM EST Narrative Resulting Agency Comment Specimen source: Serum Car Mcdonald MD LAB BLOOD ORDERABLES Final Re sult Performing Organization Address City/[facility]/ZIP Co de Phone Number [facility] See order comments or contact performing lab Unknown, [place] * (ABNORMAL) [facility] Chemistry (03/08/2024) Pathologist [facility] BUN 49(H) 6 - 19 mg/dL [facility] Creatinine 7.44(H) 0.60 - 1.30 mg/dL [facility] BUN/Creatinine Ratio 6.6(L) 10.0 - 20.0 [facility] Sodium 137 136 - 145 mEq/L [facility] Potassium 5.1 3.5 - 5.1 mEq/L [facility] Chloride 96 96 - 108 mEq/L [facility] Bicarbonate (CO2) 25 22 - 29 mEq/L [facility] Calcium 9.0 8.4 - 10.2 mg/dL [facility] Corrected Calcium 9.2 8.4 - 10.2 mg/dL [facility] Comment: Corrected Calcium is not equivalent to measured Ionized Calcium. Phosphorus 5.9(H) 2.6 - 4.5 mg/dL [facility] Calcium Phosphorus Product 53 0 - 54 [facility] Calcium Phosporus Product, Cor 54 0 - 54 [facility] Alkaline Phosphatase 142(H) 40 - 129 U/L [facility] ALT (SGPT) 21 7 - 52 U/L [facility] Albumin 3.7 3.5 - 5.2 g/dL [facility] Magnesium 1.8 1.6 - 2.6 mg/dL [facility] Iron 38(L) 45 - 160 mcg/dL [facility] UIBC 94(L) 155 - 355 mcg/dL [facility] TIBC 132(L) 185 - 515 mcg/dL [facility] Iron Saturation (TSat) 29 20 - 55 % [facility] Ferritin 1,289(H) 22 - 322 ng/mL [facility] Comment: Verified by repeat analysis. 03/08/2024 03/09/2024 12: 45 PM EST Narrative [facility] - 03/09/2024 Unless otherwise specified, test(s) performed at: [facility], [address] [place] [address] TRAVELING BUYER: Homero Garcia M.D. For any questions, please call customer service at FREQUENCY:MONTHLY Resulting Agency Comment Specimen source: Serum Car Mcdonald MD LAB BLOOD ORDERABLES Edited R esult - Final Performing Organization Address City/[facility]/ZIP Co de Phone Number [facility] See order comments or contact performing lab Unknown, [place] * (ABNORMAL) SPECIAL CHEMISTRY (03/08/2024) Hemoglobin A1C 7.9(H) 4.8 - 5.9 % [facility] 03/08/2024 03/09/2024 10: 45 AM EST Narrative Resulting Agency Comment Specimen source: Blood Car Mcdonald MD LAB BLOOD BANK TEST ORDERABLE S Final Result Performing Organization Address [facility] de Phone Number [place] [facility] See order comments or contact performing lab Unknown, [place] * (ABNORMAL) HEMATOLOGY (03/08/2024) WBC 10.55 4.80 - 10.80 1000/mcL [facility] RBC 4.57(L) 4.70 - 6.10 mill/mcL [facility] Hematocrit 36.6(L) 42.0 - 52.0 % [facility] MCV 80 80 - 100 fl [facility] MCH 23.2(L) 27.0 - 31.0 pg [facility] MCHC 29.0(L) 30.0 - 36.0 g/dL [facility] RDW 17.7(H) 11.5 - 14.5 % [facility] Hemoglobin 10.6(L) 14.0 - 18.0 g/dL [facility] Hemoglobin x 3 31.8(L) 42.0 - 54.0 % [facility] Reticulocyte Hemoglobin 25.6 25.4 - 31.8 pg [facility] 03/08/2024 03/09/2024 10: 45 AM EST Narrative [facility] - 03/09/2024 Unless otherwise specified, test(s) performed at: [facility], [address] [place] [id number] TRAVELING BUYER: Homero Garcia M.D. For any questions, please call customer service at FREQUENCY:MONTHLY Resulting Agency Comment Specimen source: Blood Car Mcdonald MD LAB BLOOD ORDERABLES Final Re sult Performing Organization Address [facility] de Phone Number [facility] See order comments or contact performing lab Unknown, [place] * (ABNORMAL) [facility] Chemistry (03/08/2024) PTH 826(H) 16 - 80 pg/mL [facility] 03/08/2024 03/09/2024 10: 48 AM EST Narrative [facility] - 03/09/2024 Unless otherwise specified, test(s) performed at: [facility], [address] [place] [id number] TRAVELING BUYER: Homero Garcia M.D. For any questions, please call customer service at FREQUENCY:MONTHLY Resulting Agency Comment Specimen source: Plasma Car Mcdonald MD LAB BLOOD ORDERABLES Final Re sult Performing Organization Address [facility] Co de Phone Number [facility] See order comments or contact performing lab Unknown, [place] documented in this encounter Visit Diagnoses Not on filedocumented in this encounter Care Teams Heater Helper Relationship Specialty Start Date End Date Jade Lewis MD [address] [place] [address] PCP - General Internal Medicine 04/25/22 documented as of this encounter
--- OUTSIDE RECORDS SUMMARY | 2024-04-05 13:03 | XMS_ITS | Encounter Summary ---
Author Organization [facility], Address [address] [place] [address] Phone Care Team Providers Care Vice President Of Development Name Role Phone Jade Lewis MD Primary Care Provider [phone] Reason for Visit * Reason Comments Med Refill Encounter Details Date Type Department Care Team (Late st Contact Info) Description 05/22/2023 Refill [facility] [address] [place] [phone] Car Mcdonald MD [facility] [address] [place] [address] Social History Tobacco Use Types Packs/Day Years [...] on filedocumented in this encounter Care Teams Vice President Of Development Relationship Specialty Start Date End Date Jade Lewis MD [address] [place] [id number] PCP - General Internal Medicine 04/25/22 documented as of this encounter
--- OUTSIDE RECORDS SUMMARY | 2024-04-05 13:03 | XMS_ITS | Encounter Summary ---
Author Organization [facility] Address [address] [place] [address] Care Team Providers Care Retort Feeder Ground Bone Name Role Phone Cass Turcios MD Primary Care Provider [phone] Encounter Details Date Type Department Care Team (Late st Contact Info) Description 03/25/2024 Lab Requisition [facility] [address] [facility] [place] [address] Cass Turcios MD [address] [place] [address] Anemia, unspecified; Chronic diastolic (congestive) heart failure (CMS/HCC); Other pericardial effusion (noninflammatory); End stage renal disease (CMS/HCC) Social History [...] for your loved ones. For example, child protective services specialist or elderly care for an older adult? [...] Associated Diagnosis Comments COMPLETE BLOOD COUNT Routine 03/25/2024 5:09 AM EST Anemia, unspecified Chronic diastolic (congestive) heart failure (CMS/HCC) Other pericardial effusion (noninflammatory) End stage renal disease (CMS/HCC) COMPREHENSIVE METABOLIC PANEL Routine 03/25/2024 5:09 AM EST Anemia, unspecified Chronic diastolic (congestive) heart failure (CMS/HCC) Other pericardial effusion (noninflammatory) End stage renal disease (CMS/HCC) documented in this encounter Results * (ABNORMAL) Comprehensive metabolic panel (03/25/2024 5:09 AM EST) Sodium 133 133 - 145 mmol/L LAB CHEMISTRY METHOD 03/25/2024 2:44 PM [facility] Potassium 7.3(HH) 3.5 - 5.5 mmol/L LAB CHEMISTRY METHOD 03/25/2024 2:44 PM [facility] Chloride 101 96 - 110 mmol/L LAB CHEMISTRY METHOD 03/25/2024 2:44 PM [facility] CO2 15(L) 21 - 32 mmol/L LAB CHEMISTRY METHOD 03/25/2024 2:44 PM [facility] Anion Gap 17(H) 3 - 11 LAB CHEMISTRY METHOD 03/25/2024 2:44 PM [facility] Glucose 62(L) 70 - 100 mg/dL LAB CHEMISTRY METHOD 03/25/2024 2:44 PM [facility] BUN 112(H) 5 - 25 mg/dL LAB CHEMISTRY METHOD 03/25/2024 2:44 PM [facility] Creatinine 12.80(HH) 0.70 - 1.30 mg/dL LAB CHEMISTRY METHOD 03/25/2024 2:44 PM [facility] eGFR 4(L) >=60 mL/min/1 .73m2 LAB CHEMISTRY METHOD 03/25/2024 2:44 PM [facility] Comment:Calculation based on the??Chronic Kidney Disease Epidemiology Collaboration (CKD-EPI) equation refit??without adjustment for race. BUN/Creatinine Ratio 8.8 LAB CHEMISTRY METHOD 03/25/2024 2:44 PM [facility] Calcium 8.8 8.5 - 10.5 mg/dL LAB CHEMISTRY METHOD 03/25/2024 2:44 PM [facility] AST (SGOT) 21 10 - 42 unit/L LAB CHEMISTRY METHOD 03/25/2024 2:44 PM [facility] ALT (SGPT) 9(L) 10 - 60 unit/L LAB CHEMISTRY METHOD 03/25/2024 2:44 PM [facility] Alkaline Phosphatase 172(H) 42 - 121 unit/L LAB CHEMISTRY METHOD 03/25/2024 2:44 PM [facility] Total Protein 6.9 6.0 - 8.0 g/dL LAB CHEMISTRY METHOD 03/25/2024 2:44 PM [facility] Albumin 2.7(L) 3.2 - 5.0 g/dL LAB CHEMISTRY METHOD 03/25/2024 2:44 PM [facility] Total Bilirubin 0.4 0.0 - 1.4 mg/dL LAB CHEMISTRY METHOD 03/25/2024 2:44 PM [facility] Blood Venous blood specimen / Unknown Venipuncture / Unknown 03/25/2024 5:09 AM EST 03/25/2024 11:52 AM EST Cass Turcios MD LAB BLOOD ORDERABLES [facility] [address] [place] [address], * (ABNORMAL) Complete blood count (03/25/2024 5:09 AM EST) WBC 14.1(H) 4.8 - 10.8 K/mcL LAB HEMETOLOGY METHOD 03/25/2024 2:27 PM [facility] RBC 4.60 4.50 - 5.50 M/mcL LAB HEMETOLOGY METHOD 03/25/2024 2:27 PM [facility] Hemoglobin 10.5(L) 13.5 - 17.5 g/dL LAB HEMETOLOGY METHOD 03/25/2024 2:27 PM EST [facility] Hematocrit 35.9(L) 42.0 - 54.0 % LAB HEMETOLOGY METHOD 03/25/2024 2:27 PM [facility] MCV 77.7(L) 79.0 - 98.0 FL LAB HEMETOLOGY METHOD 03/25/2024 2:27 PM [facility] MCH 22.7(L) 27.0 - 32.0 pcg LAB HEMETOLOGY METHOD 03/25/2024 2:27 PM [facility] MCHC 29.2(L) 32.0 - 37.0 g/dL LAB HEMETOLOGY METHOD 03/25/2024 2:27 PM [facility] RDW 17.5(H) 11.0 - 15.0 % LAB HEMETOLOGY METHOD 03/25/2024 2:27 PM [facility] Platelets 254 130 - 400 K/mcL LAB HEMETOLOGY METHOD 03/25/2024 2:27 PM [facility] MPV LAB HEMETOLOGY METHOD 03/25/2024 2:27 PM [facility] Comment:Not Measured NRBC 0.0 <1.0 % LAB HEMETOLOGY METHOD 03/25/2024 2:27 PM [facility] NRBC Absolute 0.00 <0.10 K/mcL LAB HEMETOLOGY METHOD 03/25/2024 2:27 PM [facility] Blood Venous blood specimen / Unknown Venipuncture / Unknown 03/25/2024 5:09 AM EST 03/25/2024 11:52 AM EST Cass Turcios MD LAB BLOOD ORDERABLES [facility] [address] [place] [address], documented in this encounter Visit Diagnoses Diagnosis Anemia, unspecified Chronic diastolic (congestive) heart failure (CMS/HCC) Other pericardial effusion (noninflammatory) End stage renal disease (CMS/[facility]) End stage renal disease documented in this encounter Additional Health Concerns Infection Onset Date Last Indicated Resolved Time Respiratory Rule-Out 03/25/2024 03/25/2024 025 8:14 PM EST documented as of this encounter Care Teams Retort Feeder Ground Bone Relationship Specialty Start Date End Date Cass Turcios MD [address] [facility] [address] [place] [address] PCP - General Geriatric Medicine 04/02/24 documented as of this encounter
--- OUTSIDE RECORDS SUMMARY | 2024-04-05 13:03 | XMS_ITS | Encounter Summary ---
Author Organization [facility], Address [address] [place] [address] Phone Care Team Providers Care Grant Specialist Name Role Phone Jade Lewis MD Primary Care Provider [phone] Encounter Details Date Type Department Care Team (Late st Contact Info) Description 10/28/2019 Orders Only [facility] [address] [phone] [place] [address] [place] [phone] Social History Tobacco Use Types Packs/Day Years [...] on filedocumented in this encounter Care Teams Grant Specialist Relationship Specialty Start Date End Date Jade Lewis MD [address] [place] [address] PCP - General Internal Medicine 04/25/22 documented as of this encounter
--- OUTSIDE RECORDS SUMMARY | 2024-04-05 13:04 | XMS_ITS | Encounter Summary ---
Author Organization [facility], Address [address] [place] [address] Phone Care Team Providers Care Fiber Optic Splicer Name Role Phone Jade Lewis MD Primary Care Provider + [phone] Encounter Details Date Type Department Care Team (Late st Contact Info) Description 04/03/2024 Orders Only [facility] [address] [place] [address] Car Mcdonald MD [address] [place] [address] [place] [phone] Social History Tobacco Use Types Packs/Day Years [...] Procedure Name Priority Date/Time Associated Diagnosis Comments HEMATOLOGY Routine 04/03/2024 documented in this encounter Results * (ABNORMAL) HEMATOLOGY (04/03/2024) Hemoglobin 9.5(L) 14.0 - 18.0 g/dL [facility] Hemoglobin x 3 28.5(L) 42.0 - 54.0 % [facility] 04/03/2024 04/04/2024 8:1 6 AM EST Narrative NIKKY - 04/04/2024 Unless otherwise specified, test(s) performed at: [facility], [address] [place] [address] PULVERIZING AND SIFTING OPERATOR: Homero Garcia M.D. For any questions, please call customer service at FREQUENCY:OTHER Resulting Agency Comment Specimen source: Blood us Car Mcdonald MD LAB BLOOD ORDERABLES Final Re sult [facility] See order comments or contact performing lab Unknown, [place] documented in this encounter Visit Diagnoses Not on filedocumented in this encounter Care Teams Fiber Optic Splicer Relationship Specialty Start Date End Date Jade Lewis MD [address] [place] [address] PCP - General Internal Medicine 04/25/22 documented as of this encounter
--- OUTSIDE RECORDS SUMMARY | 2024-04-05 13:04 | XMS_ITS | Encounter Summary ---
Author Organization [facility], Address [address] [place] [address] Phone Care Team Providers Care Pipeline Gang Supervisor Name Role Phone Jade Lewis MD Primary Care Provider + [phone] Reason for Visit * Reason Comments Med Refill Encounter Details Date Type Department Care Team ([facility] st Contact Info) Description 10/18/2023 Refill [facility] [address] [place] [phone] Malcolm Taylor MD [address] [place] [address] [place] [id number] Social History Tobacco Use Types Packs/Day Years [...] Priority Date/Time Associated Diagnosis Comments HEMATOLOGY Routine 10/18/2023 documented in this encounter Results * (ABNORMAL) HEMATOLOGY (10/18/2023) Hemoglobin 10.0(L) 14.0 - 18.0 g/dL [facility] Hemoglobin x 3 30.0(L) 42.0 - 54.0 % [facility] 10/18/2023 10/19/2023 9:2 0 AM EDT Narrative [facility] - 10/19/2023 Unless otherwise specified, test(s) performed at: [facility], [address] [place] [address] WOOD GLUER: Homero Garcia M.D. For any questions, please call customer service at FREQUENCY:OTHER Resulting Agency Comment Specimen source: Blood us Car Mcdonald MD LAB BLOOD ORDERABLES Final Re sult [facility] See order comments or contact performing lab Unknown, [place] documented in this encounter Visit Diagnoses Not on filedocumented in this encounter Care Teams Pipeline Gang Supervisor Relationship Specialty Start Date End Date Jade Lewis MD [address] [place] [id number] PCP - General Internal Medicine 04/25/22 documented as of this encounter
--- OUTSIDE RECORDS SUMMARY | 2024-04-05 13:04 | XMS_ITS | Clinical Summary ---
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 Use Standard Drinks/Week Comments Yes 0 (1 standard drink = 0.6 oz pur e alcohol) Ocassional beer Social Connections Answer Date Recorded Connectedness 1 03/14/2024 Financial Resource Strain Answer Date R ecorded Financial Resource Strain 1 2024 Stress Answer Date Recorded Stress 1 03/14/2024 Physical Activity Answer Date Recorded Physical Activity 0 10/24/2018 Food Insecurity Answer Date Recorded Food 1 03/14/2024 Transportation Needs Answer Date Record ed Transportation 1 03/14/2024 Housing Stability Answer Date Recorded Housing 1 03/14/2024 Safety and Environment Answer Date Geovanni rded Safety 0 10/24/2018 Utilities Answer Date Recorded Utilities 1 03/14/2024 Employment Answer Date Recorded Stress 0 02/26/2019 Sex and Gender Information Value Date Recorded Sex Assigned at Male 07/20/2017 12:54 PM PDT Legal Sex Male 7:30 AM PDT Gender Identity Male 07/20/2017 12:54 PM PDT Sexual Orientation Straight 07/20/2017 12 :54 PM PDT COVID-19 Exposure Response Date Recorded In the last 10 days, have yo u been in contact with someone who was confirmed or suspected to have Coronavirus/COVID-19? No / Unsure 03/14/2024 9:29 AM EST Last Filed Vital Signs Vital Sign Reading Time Taken Comments Blood Pressure 140/98 03/14/2024 9:55 AM EST Pulse 77 03/14/2024 9:55 AM EST Temperature 36.8 ??C (98.2 ??F) 03/14/2024 9:55 AM ES T Respiratory Rate 18 03/14/2024 9:55 AM EST Oxygen Saturation 99% 11/14/2023 1:42 PM EDT Inhaled Oxygen Concentration - - Weight 75.3 kg (166 lb 1.6 oz) 03/14/2024 9:55 A M EST Height 162.6 cm (5' 4 ) 03/14/2024 9:55 AM EST Body Mass Index 28.51 03/14/2024 9:55 AM EST Plan of Treatment Health Maintenance Due Date Last Done Comments Urine Drug Screen 1956 CT Colonography 2001 FIT/gFOBT 2001 Fecal DNA 2001 Flexible Sigmoidoscopy 2001 Abdominal Aortic Aneurysm Screening 2021 Dental BW 09/01/2022 08/30/2021 Dental Examination 09/01/2022 08/30/2021 Dental Perio Charting 09/01/2022 08/30/2021 Dental Prophy 03/20/2023 09/15/2022, 08/30/2021 [id number] ( season) 2023 08/20/2021, 01/08/2021, 07/29/2020, Additional history exists Diabetes Foot Exam 12/09/2023 12/08/2022, 01/07/2020 Falls Prevention 12/09/2023 12/08/2022, 08/12/2021 Medicare Annual Wellness Visit 12/09/2023 1 , 12/08/2022, 07/27/2017 Diabetes HbA1c 08/09/2024 02/09/2024, 09/03, 12/08/2022, Additional history exists Retinopathy Screening 08/10/2024 08/11/2023, 023 Lipid Screening 09/13/2024 09/14/2023, 06/05, 05/29/2021, Additional history exists Tobacco Screening 11/13/2024 11/14/2023 Dental FMX/Pano 09/01/2026 08/30/2021 Imm-DTaP/Tdap/Td (3 - Td or Tdap) 09/21/2030 09/21/2020, 08/27/2010, 04/25/1997 Colonoscopy 2032 2022 Colorectal Cancer Screening 2032 Imm-Hepatitis B Completed 04/13/2016, 06/04, 06/16/2011, Additional history exists Imm-Zoster, Recombinant Completed 01/07/2020, 07/27 Hepatitis C Screening Completed 05/17/2021 , 10/07/2020, 06/12/2015 Imm-Pneumococcal 65+ Completed 09/14/2023, 04/13/2016, 11/02/2015, Additional history exists Imm-Influenza Completed 11/14/2023, 02/03, 12/21/2020, Additional history exists Alcohol and Drug Screen Completed 03/14/19, 05/18/2023, 03/31/2022, Additional history exists Depression Annual Screen Completed 025, 07/19/2016, 06/12/2015 Procedures Procedure Name Priority Date/Time Associated Diagnosis Comments REFERRAL SCANNED DOCUMENT 02/16/2024 3:00 AM EST OTHER ORDERS SCANNED DOCUMENT 01/17/2024 3:00 AM EST OTHER ORDERS SCANNED DOCUMENT 01/12/2024 3:00 AM EST OTHER ORDERS SCANNED DOCUMENT 01/12/2024 3:00 AM EST LIPID PANEL Routine 09/14/2023 12:01 PM EDT Type 2 diabetes mellitus with stage 4 chronic kidney disease, with long-term current use of insulin ([facility]) ESRD (end stage renal disease) on dialysis ([facility]) Essential hypertension HEMOGLOBIN GLYCOSYLATED A1C Routine 09/14/2023 12:01 PM EDT Type 2 diabetes mellitus with stage 4 chronic kidney disease, with long-term current use of insulin ([facility]) ESRD (end stage renal disease) on dialysis ([facility]) Essential hypertension EYE EXAM 08/11/2023 3:00 AM EDT HISTORIC COLONOSCOPY 2022 3:00 AM EST COMP PERIODONTAL EVALUATION - NEW/EST PATIENT Routine 08/30/2021 3:00 PM EDT Dental examination PANORAMIC RADIOGRAPHIC IMAGE Routine 08/30/2021 3:00 PM EDT Dental examination BITEWINGS - TWO RADIOGRAPHIC IMAGES Routine 08/30/2021 3:00 PM EDT Dental examination Full PROPHYLAXIS - ADULT Routine 08/30/2021 3:00 PM EDT Dental examination PERIODIC ORAL EVALUATION ESTABLISHED PATIENT Routine 08/30/2021 3:00 PM EDT Dental examination HEPATITIS A,B,C PANEL Routine 06/12/2015 3:55 PM EDT Preventative health care from Last 3 Months or Most Recently Relevant to Health Maintenance Results * REFERRAL SCANNED DOCUMENT (02/16/2024 3:00 AM EST) 02/16/2024 3:00 AM EST Lainey Cody [employer] SCAN REFERRAL Final Result * OTHER ORDERS SCANNED DOCUMENT (01/17/2024 3:00 AM EST) Only the most recent of3 resultswithin the time period is included. 01/17/2024 3:00 AM EST Lainey Cody [employer] SCAN OTHER ORDERS Final Result * LIPID PANEL (09/14/2023 12:01 PM EDT) CHOLESTEROL, TOTAL 107 <200 mg/dL [facility] HDL CHOLESTEROL 54 > OR = 40 mg/dL [facility] TRIGLYCERIDES 83 <150 mg/dL [facility] LDL-CHOLESTEROL 36 99 mg/dL (calc) [facility] Comment: Reference range: <100 Desirable range <100 mg/dL for primary prevention; ?? <70 mg/dL for patients with CHD or diabetic patients with > or = 2 CHD risk factors. LDL-C is now calculated using the Thais calculation, which is a validated novel method providing better accuracy than the Friedewald equation in the estimation of LDL-C. Ricky PALAFOX et al. SUZY. 2013;310(19): 3690-7621 (http://education.Atosho/faq/UQW861) CHOL/HDLC RATIO 2.0 <5.0 (calc) [facility] NON-HDL CHOLESTEROL 53 <130 mg/dL (calc) [facility] Comment: For patients with diabetes plus 1 major ASCVD risk factor, treating to a non-HDL-C goal of <100 mg/dL (LDL-C of <70 mg/dL) is considered a therapeutic option. Blood Blood / Unknown 09/14/2023 1 2:01 PM EDT 09/14/2023 12:02 PM EDT [address]ative [facility] - 09/15/2023 2:52 AM EDT FASTING:NO Shayla Augustine [employer] [facility] - BLOOD DRAW Final Re sult [facility] [address] [address], [facility] [address] [phone] * EYE EXAM (08/11/2023 3:00 AM EDT) 08/11/2023 3:00 AM EDT Shayla Augustine [employer] OTHER Final Res ult * HISTORIC COLONOSCOPY (2022 3:00 AM EST) 2022 3:00 AM EST Shayla Augustine [employer] PROCEDURES Final Res ult * (ABNORMAL) HEPATITIS A,B,C PANEL (06/12/2015 3:55 PM EDT) HEPATITIS B SURFACE ANTIBODY NEGATIVE NEGATIVE [facility] HEPATITIS B SURFACE ANTIGEN NEGATIVE NEGATIVE [facility] HEPATITIS C VIRUS DIAGNOSTIC NEGATIVE NEGATIVE [facility] HEPATITIS A ANTIBODY TOTAL POSITIVE(A) NEGATIVE [facility] HEPATITIS B CORE ANTIBODY NEGATIVE NEGATIVE [facility] Blood specimen (specimen) Blood / Unknown 06/12/2015 3:55 PM EDT 06/12/2015 4:00 PM EDT Narrative [facility] - 06/12/2015 8:00 PM EDT [address] [place] [address] PT ID [id number] ORD# [id number] Shayla Augustine [employer] - BLOOD DRAW Edited R esult - Final [facility] [address] [place] [address], from Last 3 Months or Most Recently Relevant to Health Maintenance Insurance [place] [facility] SAFETY NET DENTAL [employer] MEDICARE COMPLETE CHO Care Teams Community Engagement Specialist Relationship Specialty Start Date End Date Lainey Cody FNP [address] [place] [address] PCP - General Internal Medicine 12/11/23
--- OUTSIDE RECORDS SUMMARY | 2024-04-05 13:04 | XMS_ITS | Encounter Summary ---
Author Organization [facility] Address [address] [place] [address] Phone Care Team Providers Care Print Binding And Finishing Worker Name Role Phone Jade Lewis MD Primary Care Provider + [phone] Reason for Visit * Reason Comments Med Refill Encounter Details Date Type Department Care Team (Late st Contact Info) Description 04/30/2021 Refill [facility] [address] [place] [phone] Alejandro Santana MD [address] [place] [phone] Social History Tobacco Use Types Packs/Day Years [...] have Coronavirus / COVID-19? No / Unsure 04/13/2021 9:46 AM EST documented as of this encounter Plan of Treatment Not on file documented as of this encounter Visit Diagnoses Not on filedocumented in this encounter Care Teams Print Binding And Finishing Worker Relationship Specialty Start Date End Date Jade Lewis MD [address] [place] [address] PCP - General Internal Medicine 04/25/22 documented as of this encounter
--- OUTSIDE RECORDS SUMMARY | 2024-04-05 13:04 | XMS_ITS | Encounter Summary ---
Author Organization [facility], Address [address] [place] [address] Phone Care Team Providers Care Blower Mechanic Name Role Phone Jade Lewis MD Primary Care Provider [phone] Reason for Visit * Reason Comments Med Refill Encounter Details Date Type Department Care Team (Late st Contact Info) Description 10/27/2023 Refill [facility] [address] [place] [phone] Malcolm Taylor MD [address] [place] [address] [place] [address] Social History Tobacco Use Types Packs/Day Years [...] on filedocumented in this encounter Care Teams Blower Mechanic Relationship Specialty Start Date End Date Jade Lewis MD [address] [place] [id number] PCP - General Internal Medicine 04/25/22 documented as of this encounter
[2024-04-05 13:05] LABS: Alanine Aminotransferase 37 U/L (0-40); Albumin Level 3.2 g/dL (3.5-5.0); Alkaline Phosphatase 274 U/L (39-117); Aspartate Amino Transferase 52 U/L (5-37); Bilirubin Direct 0.2 mg/dL (0.0-0.5); Bilirubin Total 0.5 mg/dL (0.0-1.0); Magnesium 1.8 mg/dL (1.6-2.6)
--- OUTSIDE RECORDS SUMMARY | 2024-04-05 13:05 | XMS_ITS | Clinical Summary ---
Author Organization [facility]. Address [address] [facility] [address] [place] [address] Phone Care Team Providers Care Sas Developer Analyst Name Role Phone Jade Lewis MD Primary Care Provider + [phone] Allergies Active Allergy Reactions Criticality Noted Date Comments Iodinated Contrast Media Swelling High 01/26/2021 Contrast dye per cis Face swelling Other reaction(s): swelling of face Medications Lantus SoloStar 100 UNIT/ML injection Inject 60 Units under the skin every night 0 Active omeprazole (PriLOSEC) [address] capsule TAKE ONE CAPSULE BY MOUTH EVERY MORNING BEFORE BREAKFAST. APPOINTMENT REQUIRED FOR FURTHER REFILLS 0 Active ProAir HFA 108 (90 Base) MCG/ACT inhaler INHALE 2 PUFF BY MOUTH EVERY 4 HOURS NEEDED FOR SHORTNESS OF BREATH OR FOR WHEEZING 1 Active ergocalciferol 1.25 MG (76026 UT) capsule Take 1 capsule (50,000 Units total) by mouth 1 (one) time per week 4 capsule 5 1 Active cetirizine (ZyrTEC) 10 MG tablet Take 10 mg by mouth 1 (one) time each day Active Fluticasone-Salm eterol 100-50 MCG/ACT aerosol powder [facility] - [place], [place] - [id number] [place] [phone] 60.00 Each 5 30 INHALE 1 PUFF BY MOUTH two (2) times a day. rinse mouth and throat after use Authorized by: MARCEL FUNEZ 2 Active pregabalin (LYRICA) 75 MG capsule Take 1 capsule by mouth 1 (one) time each day 2 Active cinacalcet (SENSIPAR) 30 MG tablet Take 1 tablet by mouth daily. Prescribed and administered by nephrology during dialysis MWF. 2 Active allopurinol (ZYLOPRIM) 100 MG tablet Take 1 tablet by mouth daily. Prescribed by Dr. Car Mcdonald (electric serviceman). 2 Active aspirin (ST ANITRA) 81 MG EC tablet Take 1 tablet by mouth 1 (one) time each day 2 Active insulin lispro (HumaLOG) 100 UNIT/ML injection Inject under the skin 3 (three) times a day before meals Inject 4-8 units into the skin TID before meal Active ipratropium-albu terol (DUO-NEB) 0.5-2.5 mg/3 mL nebulizer solution Take 3 mL by nebulization every 6 (six) hours Active Liraglutide (VICTOZA SC) Inject under the skin Active hydrALAZINE 25 MG tablet Take 50 mg by mouth in the morning and 50 mg at noon and 50 mg in the evening. 2 Active doxazosin (CARDURA) 4 MG tablet Take 4 mg by mouth every night Active NIFEdipine CC (ADALAT CC) 60 MG 24 hr tablet Take 60 mg by mouth in the morning and 60 mg in the evening. Do not crush, chew, or split. . Active carvedilol (COREG) 6.25 MG tablet Take 6.25 mg by mouth in the morning and 6.25 mg in the evening. Take with meals. Active Sucroferric Oxyhydroxide (Velphoro) 500 MG chewable tablet Chew Active furosemide (LASIX) 80 MG tablet Take 80 mg by mouth in the morning and 80 mg in the evening. Active Trelegy Ellipta 200-62.5-25 MCG/ACT aerosol powder INHALE 1 PUFF BY MOUTH ONCE DAILY. use at the same time every day 3 Active sevelamer carbonate (RENVELA) 800 MG tablet TAKE 2 TABLETS BY MOUTH 3 (THREE) TIMES A DAY WITH A MEAL 180 tablet 3 3 Active atorvastatin (LIPITOR) 40 MG tablet Take 40 mg by mouth 1 (one) time each day Active lisinopril 10 MG tablet Take 10 mg by mouth 1 (one) time each day 4 Active labetalol (NORMODYNE) 100 MG tablet Take 100 mg by mouth in the morning and 100 mg in the evening. 4 Active Polyethylene Glycol 3350 (PEG 3350) 17 GM/SCOOP powder DISSOLVE 17gramos IN WATER AND DRINK ONCE DAILY NEEDED FOR CONSTIPATION 4 Active Senna-Plus 8.6-50 MG per tablet TAKE 1 TABLET BY MOUTH ONCE DAILY NEEDED FOR CONSTIPATION 4 Active Active Problems Problem Noted Date Diagnosed Date Hypertensive emergency 06/24/2022 Mild intermittent asthma 03/31/2022 Overview (09/15/2022): 08/19/21 Eval at [facility]. Increase Advair to 100/50 F/u 6 months. 05/24/22 Eval at [facility], Dr Funez. Recommends Trelegy once daily. Plan for sleep study to assess need for CPAP. 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 He has fistula but it is not yet mature enough to use. Advised to continue Eliquis 5 mg BID> Acute respiratory distress 05/14/2021 Acute respiratory failure with hypoxia 2 Angioneurotic edema, initial encounter 2 COVID-19 04/12/2021 Overview (06/28/2021): Admitted to [facility] 03/10/21-03/18/21 for Covid-19 and MSSA Bacteremia of his Permacath. Permacath for dialysis removed and a new one replaced. Will get cefazolin x 4 weeks after dialysis. Lantus decreased to 30 units. Pt to continue on Eliquis for the next few weeks until his AV fistula is ready for utilization. Abdominal pain 03/19/2021 Bacteremia 03/19/2021 Venous thrombosis 01/04/2021 Overview (01/26/2021): 12/13/20-12/19/20 Admitted to [facility] for non-occulsive thrombosis in R internal jugular vein. Acute embolism and thrombosis of left internal j ugular vein 12/21/2020 End stage renal failure on dialysis 11/19/2020 Overview (10/05/2021): [facility] Hypocalcemia 11/13/2020 Angina pectoris 11/09/2020 Coagulation defect 11/09/2020 Headache 11/09/2020 Type 2 diabetes mellitus with diabetic nephropat hy 11/09/2020 Edema 09/28/2020 Iron deficiency anemia 12/24/2019 Chronic kidney disease stage 4 02/19/2019 Anemia in chronic kidney disease 02/19/2019 History of colonoscopy 03/30/2016 Overview (01/26/2021): Approximately 2010 in [place] per Pt 11/24/20 Eval at [facility], recommend colonoscopy. Resolved Problems Problem Noted Date Diagnosed Date Resolved Date Stage 5 chronic kidney disease 09/28/2020 06/28/2021 Stage 5 chronic kidney disease 03/09/2020 07/30/2020 Acute nontraumatic kidney injury 02/19/2019 06/17/2020 Chronic diastolic heart failure 02/19/2019 08/19/2019 Hyperkalemia 02/19/2019 08/19/2019 Hypertriglyceridemia 02/19/2019 06/15/2 020 Hyperparathyroidism due to r enal insufficiency 02/19/2019 07/30/2020 Proteinuria 02/19/2019 08/28/2020 Renal stone 02/19/2019 07/30/2020 Sleep apnea 02/19/2019 08/19/2019 Type 2 diabetes mellitus 06/12/2015 Overview (01/26/2021): Followed by [facility]. Last visit 06/23/15, HbA1c = 11.1%. Has diabetic nephropathy, retinopathy, and peripheral neuropathy. Switched to Novolin 70/30. Taking 23 units TID with meals, may titrate up/down depending on BG readings over the next few days. They are trying to submit PA for Lyrica. 04/27/16 F/u with Estefani Kaur, DO at [facility]. Titrate Novolog 70/30 to 22 units with breakfast, 30 units with dinner. If no improvement or if ongoing hypoglycemia will consider switchign to Levemir and Humalog; F/u 3 months 11/03/20 F/u [facility]. A1c > 12% Continue Lanuts 52 and Humalog 4-8 untsi with meals. Consider using NPH during peritoneal dialysis Encounters Date Type Department Care Team Description 04/03/2024 Orders Only [facility] [address] [address] Car Mcdonald MD 03/29/2024 Orders Only [facility] [address] [address] Car Mcdonald MD 03/13/2024 Orders Only [facility] [address] [address] Car Mcdonald MD 03/08/2024 Orders Only [facility] [address] [address] Car Mcdonald MD 03/01/2024 Treatment [facility] [place], [address] [place] [address] Mlacolm Taylor MD 03/01/2024 Orders Only [facility] [address] [address] Car Mcdonald MD 02/23/2024 Treatment [facility] [place] [place] [address] Arely Hernández, GLOBAL MANAGER 02/21/2024 Orders Only [facility] [address] [address] Car Mcdonald MD 02/19/2024 Treatment [facility] [place] [place] [address] Arely Hernández, GLOBAL MANAGER 02/14/2024 Orders Only [facility] [address] [address] Car Mcdonald MD 02/12/2024 Orders Only [facility] [address] [place] [address] Kevin Izaiah Ordering 02/09/2024 Treatment [facility] [place] [place] [address] Arely Hernández, GLOBAL MANAGER 02/02/2024 Treatment [facility] [place] [place] [address] Malcolm Taylor MD 01/31/2024 Orders Only [facility] [address] [address] Car Mcdonald MD 01/26/2024 Treatment [facility] [place] [place] [address] Arely Hernández, GLOBAL MANAGER 01/24/2024 Orders Only [facility] [address] [address] Car Mcdonald MD 01/19/2024 Treatment [facility] [place], [address] [place] [address] Arely Hernández, GLOBAL MANAGER 01/17/2024 Orders Only [facility] [address] [address] Car Mcdonald MD 01/15/2024 Orders Only [facility] [address] [place] [address] Provider, Izaiah Ordering 01/12/2024 Treatment [facility], [address] [place] [address] Arely Hernández, GLOBAL MANAGER 01/10/2024 Orders Only [facility] [address] [address] Car Mcdonald MD from Last 3 Months Immunizations Name Administration Dates Next Due Hepatitis B 04/13/2016, 2,11/01/2010,08/27 Influenza Split 02/10/2012 Influenza Split High Dose Pr eservative Free IM 12/13/2016 Influenza TIV (IM) 11/10/2015,02/18/2014 Influenza, MDCK, Quadrivalen t, with preservative 12/03/2019 Moderna SARS-COV-2 07/29/2020,07/01/2020 Pneumococcal Polysaccharide 04/13/2016, 3,04/25/1997 Shingrix 01/07/2020,07/27/2017 Td 04/25/1997 Tdap 08/27/2010 Family History Medical History Relation Comments Heart disease Father Myocardial infar ction, at 65 Diabetes Mother Heart disease Mother MS Stroke Mother grandfather Hypertension Sibling 1 Kidney disease Sibling 1 Kidney disease Sibling 2 sister CKD Diabetes Sibling 3 sister Hypertension Sibling 4 sister Relation Status Comments Father Mother Unknown Sibling 1 Sibling 2 Sibling 3 Sibling 4 Social History Tobacco Use Types Packs/Day Years [...] PM EST Sexual Orientation Not on file Last Filed Vital Signs Vital Sign Reading Time Taken Comments Blood Pressure 164/76 09/21/2023 10:27 AM EDT Pulse 68 09/21/2023 10:27 AM EDT Temperature 36.5 ??C (97.7 ??F) 09/21/2023 10:27 AM E DT Respiratory Rate 18 09/15/2022 8:41 AM EDT Oxygen Saturation 95% 09/21/2023 10:27 AM EDT Inhaled Oxygen Concentration - - Weight 72.6 kg (160 lb) 08/22/2023 9:39 AM EDT Height 162.6 cm (5' 4 ) 08/22/2023 9:39 AM EDT Body Mass Index 27.46 08/22/2023 9:39 AM EDT Plan of Treatment Health Maintenance Due Date Last Done Comments Hepatitis B Vaccine (1 of 5 - Risk Dialysis 4-dose series) 1976 01/11/2018, 04/13/2016, 06/16/2011, Additional history exists Colorectal Cancer Screening: Annual FOBT 2005 Colorectal Cancer Screening: Sigmoidoscopy 2005 Diabetes: Ophthalmology Exam 02/18/2019 Diabetes: Pedal Pulse Checked 02/18/2019 Diabetes: Sensory Foot Exam 02/18/2019 Diabetes: Visual Foot Exam 02/18/2019 Diabetes: Hemoglobin A1C 06/06/2024 025, 12/08/2023, 09/14/2023, Additional history exists Pneumococcal Vaccine: 65+ Ye ars (4 of 4 - PPSV23 or PCV20) 01/15/2026 01/15/2021, 11/13/2020, 01/04/2018, Additional history exists Colorectal Cancer Screening: Colonoscopy 03/30/2026 03/30/2016 Influenza Vaccine Completed 11/14/2023, , 12/24/2021, Additional history exists Procedures Procedure Name Priority Date/Time Associated Diagnosis Comments HEMATOLOGY Routine 04/03/2024 HEMATOLOGY Routine 03/29/2024 HD KINETICS Routine 03/13/2024 CHEMISTRY Routine 03/13/2024 POST CHEMISTRY Routine 03/13/2024 HEMATOLOGY Routine 03/13/2024 [facility] LAB RESULTS Routine 03/08/2024 HD KINETICS Routine 03/08/2024 POST CHEMISTRY Routine 03/08/2024 IMMUNO CHEMISTRY Routine 03/08/2024 CHEMISTRY Routine 03/08/2024 SPECIAL CHEMISTRY Routine 03/08/2024 HEMATOLOGY Routine 03/08/2024 CHEMISTRY Routine 03/08/2024 HEMATOLOGY Routine 03/01/2024 CHEMISTRY Routine 02/21/2024 HEMATOLOGY Routine 02/21/2024 HEMATOLOGY Routine 02/14/2024 HD KINETICS Routine 02/12/2024 POST CHEMISTRY Routine 02/12/2024 IMMUNO CHEMISTRY Routine 02/12/2024 CHEMISTRY Routine 02/12/2024 CHEMISTRY Routine 02/12/2024 SPECTRA [facility] LAB RESULTS Routine 02/12/2024 HEMATOLOGY Routine 01/31/2024 HEMATOLOGY Routine 01/24/2024 HEMATOLOGY Routine 01/17/2024 HD KINETICS Routine 01/15/2024 POST CHEMISTRY Routine 01/15/2024 CHEMISTRY Routine 01/15/2024 SPECTRA [facility] LAB RESULTS Routine 01/15/2024 [facility]RA [facility] LAB RESULTS Routine 01/10/2024 HD KINETICS Routine 01/10/2024 POST CHEMISTRY Routine 01/10/2024 IMMUNO CHEMISTRY Routine 01/10/2024 CHEMISTRY Routine 01/10/2024 HEMATOLOGY Routine 01/10/2024 CHEMISTRY Routine 01/10/2024 from Last 3 Months Results * (ABNORMAL) HEMATOLOGY (04/03/2024) Only the most recent of11 resultswithin the time period is included. Hemoglobin 9.5(L) 14.0 - 18.0 g/dL [facility] Hemoglobin x 3 28.5(L) 42.0 - 54.0 % [facility] 04/03/2024 04/04/2024 8:1 6 AM EST Narrative [facility] - 04/04/2024 Unless otherwise specified, test(s) performed at: [facility], [address] [place] [id number] LUMBER KILN OPERATOR: Homero Garcia M.D. For any questions, please call customer service at FREQUENCY:OTHER Resulting Agency Comment Specimen source: Blood us Car Mcdonald MD LAB BLOOD ORDERABLES Final Re sult [facility] See order comments or contact performing lab Unknown, [place] * HD KINETICS (03/13/2024) Only the most recent of5 resultswithin the time period is included. % Urea Reduction 65 65 - 80 % [facility] 03/13/2024 03/14/2024 10: 08 AM EST Narrative [facility] - 03/15/2024 Unless otherwise specified, test(s) performed at: [facility], [address] [place] [id number] LUMBER KILN OPERATOR: Homero Garcia M.D. For any questions, please call customer service at FREQUENCY:OTHER Resulting Agency Comment Specimen source: Plasma Car Mcdonald MD LAB BLOOD ORDERABLES Final Re sult Performing Organization Address [facility] de Phone Number [facility] See order comments or contact performing lab Unknown, [place] * (ABNORMAL) POST CHEMISTRY (03/13/2024) Only the most recent of5 resultswithin the time period is included. BUN Post Dialysis 28(H) 6 - 19 mg/dL [facility] 03/13/2024 03/14/2024 10: 08 AM EST Narrative [facility] - 03/14/2024 Unless otherwise specified, test(s) performed at: [facility], [address] [place] [id number] LUMBER KILN OPERATOR: Homero Garcia M.D. For any questions, please call customer service at FREQUENCY:OTHER Resulting Agency Comment Specimen source: Plasma Car Mcdonald MD LAB BLOOD ORDERABLES Final Re sult Performing Organization Address [facility]/ZIP Co de Phone Number [facility] See order comments or contact performing lab Unknown, [place] * (ABNORMAL) [facility] Chemistry (03/13/2024) Only the most recent of9 resultswithin the time period is included. BUN 79(H) 6 - 19 mg/dL [facility] 03/13/2024 03/14/2024 12: 15 PM EST Narrative [facility]RAE - 03/15/2024 Unless otherwise specified, test(s) performed at: [facility], [address] [place], [place] [id number] LUMBER KILN OPERATOR: Homero Garcia M.D. For any questions, please call customer service at FREQUENCY:OTHER Resulting Agency Comment Specimen source: Serum Car Mcdonald MD LAB BLOOD ORDERABLES Final Re sult Performing Organization Address [facility] de Phone Number [facility] See order comments or contact performing lab Unknown, [place] * (ABNORMAL) SPECIAL CHEMISTRY (03/08/2024) Pathologist [facility] Hemoglobin A1C 7.9(H) 4.8 - 5.9 % [facility] 03/08/2024 03/09/2024 10: 45 AM EST Narrative Resulting Agency Comment Specimen source: Blood Car Mcdonald MD LAB BLOOD BANK TEST ORDERABLE S Final Result Performing Organization Address [facility] de Phone Number [facility] See order comments or contact performing lab Unknown, [place] * IMMUNO CHEMISTRY (03/08/2024) Only the most recent of3 resultswithin the time period is included. Pathologist [facility] Hep B Surface Ag Negative Negative [facility] 03/08/2024 03/09/2024 12: 45 PM EST Narrative Resulting Agency Comment Specimen source: Serum Car Mcdonald MD LAB BLOOD ORDERABLES Final Re sult Performing Organization Address [facility] de Phone Number [facility] See order comments or contact performing lab Unknown, [place] * [facility] Lab Results (03/08/2024) Only the most recent of4 resultswithin the time period is included. Pathologist [facility] spKt/V (Daugirdas II) 0.96 [facility] eKt/V (Tattersall) 0.77 [facility] WSTDKT/V 0.6 [facility] 03/08/2024 03/08/2024 Izaiah Ordering Provider LAB BLOOD ORDERABLES Final Result [facility] Contact Performing lab Unknown, [place] from Last 3 Months Insurance [place]ICAID [place] Member Subscriber Plan / Payer (Ef fective 2020-Present) Name:Beau Marie Relation to Subscriber:Self Name:Beau Marie Payer ID:Not on file Group ID:Not on file Type:Not on file Address: [address] [address] [employer]ID [place] [facility] MEDICARE Member Subscriber Plan / Payer (Ef fective 2022-Present) Name:Beau Marie Relation to Subscriber:Self Name:Beau Marie Payer ID:[id number] (NAIC) Type:Not on file Address: [place] [id number] [place] [id number] Member Subscriber Plan / Payer (Ef fective 2022-Present) Name:Beau Marie Relation to Subscriber:Self Name:Beau Marie Payer ID:[id number] (NAIC) Type:Not on file Address: [address] [id number] MEDICAID [place] Care Teams Sas Developer Analyst Relationship Specialty Start Date End Date Jade Lewis MD [address] [place] [address] PCP - General Internal Medicine 04/25/22
--- OUTSIDE RECORDS SUMMARY | 2024-04-05 13:05 | XMS_ITS | Encounter Summary ---
Author Organization [facility], Address [address] [place] [address] Phone Care Team Providers Care Telegraph Equipment Maintainer Name Role Phone Jade Lewis MD Primary Care Provider + [phone] Encounter Details Date Type Department Care Team (Late st Contact Info) Description 03/29/2024 Orders Only [facility] [address] [place] [address] Car Mcdonald MD [address] [place] [address] [place] [address] Social History Tobacco Use Types Packs/Day Years [...] Priority Date/Time Associated Diagnosis Comments HEMATOLOGY Routine 03/29/2024 documented in this encounter Results * (ABNORMAL) HEMATOLOGY (03/29/2024) Hemoglobin 10.4(L) 14.0 - 18.0 g/dL [facility] Hemoglobin x 3 31.2(L) 42.0 - 54.0 % [facility] 03/29/2024 03/30/2024 11: 06 AM EST Narrative NIKKY - 03/30/2024 Unless otherwise specified, test(s) performed at: [facility], [address] [place] [address] ELECTRONIC TECH: Homero Garcia M.D. For any questions, please call customer service at FREQUENCY:OTHER Resulting Agency Comment Specimen source: Blood us Car Mcdonald MD LAB BLOOD ORDERABLES Final Re sult [facility] See order comments or contact performing lab Unknown, [place] documented in this encounter Visit Diagnoses Not on filedocumented in this encounter Care Teams Telegraph Equipment Maintainer Relationship Specialty Start Date End Date Jade Lewis MD [address] [place] [address] PCP - General Internal Medicine 04/25/22 documented as of this encounter
--- OUTSIDE RECORDS SUMMARY | 2024-04-05 13:05 | XMS_ITS | Encounter Summary ---
Author Organization [facility] Address [address] [place] [address] Phone Care Team Providers Care Materials Intern Name Role Phone Jade Lewis MD Primary Care Provider + [phone] Reason for Visit * Reason Comments Med Refill Encounter Details Date Type Department Care Team (Late st Contact Info) Description 07/23/2021 Refill [facility] [address] [place] [phone] Alejandro Santana MD [address] [place] [phone] Social History Tobacco Use Types Packs/Day Years [...] have Coronavirus / COVID-19? No / Unsure 07/13/2021 8:17 AM EDT documented as of this encounter Plan of Treatment Not on file documented as of this encounter Visit Diagnoses Not on filedocumented in this encounter Care Teams Materials Intern Relationship Specialty Start Date End Date Jade Lewis MD [address] [place] [address] PCP - General Internal Medicine 04/25/22 documented as of this encounter
--- OUTSIDE RECORDS SUMMARY | 2024-04-05 13:06 | XMS_ITS | Encounter Summary ---
Author Organization [facility], Address [address] [place] [address] Phone Care Team Providers Care Inorganic Chemistry Teacher Name Role Phone Jade Lewis MD Primary Care Provider [phone] Reason for Visit * Reason Comments Med Refill Encounter Details Date Type Department Care Team (Late st Contact Info) Description 12/24/2022 Refill [facility] [address] [place] [phone] Car Mcdonald MD [facility] [place] [address] Social History Tobacco Use Types Packs/Day Years [...] on filedocumented in this encounter Care Teams Inorganic Chemistry Teacher Relationship Specialty Start Date End Date Jade Lewis MD [address] [place] [address] PCP - General Internal Medicine 04/25/22 documented as of this encounter
--- OUTSIDE RECORDS SUMMARY | 2024-04-05 13:06 | XMS_ITS | Encounter Summary ---
Author Organization [facility] Address [address] [place] [address] Encounter Details Date Type Department Care Team Description 2024-03-26 Telephone [facility] [address] [place] [address] Karmen Verdugo Medication Reconciliation was successfully completed by the [facility]. ASSESSMENT No Information TREATMENT PLAN No Information
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
--- OUTSIDE RECORDS SUMMARY | 2024-04-05 13:06 | XMS_ITS | Encounter Summary ---
Author Organization [facility], Address [address] [place] [address] Phone Care Team Providers Care Business Job Titles Name Role Phone Jade Lewis MD Primary Care Provider [phone] Reason for Visit * Reason Comments Med Refill Encounter Details Date Type Department Care Team ([facility] st Contact Info) Description 11/27/2020 Refill [facility] [address] [place] [phone] Alejandro Santana MD [address] [place] [phone] Social History Tobacco Use Types Packs/Day Years [...] have Coronavirus / COVID-19? No / Unsure 11/19/2020 8:45 AM EDT documented as of this encounter Plan of Treatment Not on file documented as of this encounter Visit Diagnoses Not on filedocumented in this encounter Care Teams Business Job Titles Relationship Specialty Start Date End Date Jade Lewis MD [address] [place] [id number] PCP - General Internal Medicine 04/25/22 documented as of this encounter
--- OUTSIDE RECORDS SUMMARY | 2024-04-05 13:06 | XMS_ITS | Encounter Summary ---
Author Organization [facility], Address [address] [place] [address] Phone Care Team Providers Care Repairer Sash And Door Name Role Phone Jade Lewis MD Primary Care Provider [phone] Reason for Visit * Reason Comments Med Refill Encounter Details Date Type Department Care Team ([facility] st Contact Info) Description 10/28/2020 Refill [facility] [address] [place] [phone] Alejandro Santana MD [address] [place] [place] [phone] Social History Tobacco Use Types Packs/Day Years [...] have Coronavirus / COVID-19? No / Unsure 10/05/2020 11:31 AM EDT documented as of this encounter Plan of Treatment Not on file documented as of this encounter Visit Diagnoses Not on filedocumented in this encounter Care Teams Repairer Sash And Door Relationship Specialty Start Date End Date Jade Lewis MD [address] [place] [id number] PCP - General Internal Medicine 04/25/22 documented as of this encounter
--- OUTSIDE RECORDS SUMMARY | 2024-04-05 13:06 | XMS_ITS | Encounter Summary ---
Author Organization [facility], Address [address] [place] [address] Phone Care Team Providers Care Cook Chef Name Role Phone Jade Lewis MD Primary Care Provider [phone] Reason for Visit * Reason Comments Med Refill Encounter Details Date Type Department Care Team (Late st Contact Info) Description 09/17/2022 Refill [facility] [address] [place] [phone] Malcolm Taylor MD [address] [place] [address] [place] [address] Social History Tobacco Use Types Packs/Day Years [...] on filedocumented in this encounter Care Teams Cook Chef Relationship Specialty Start Date End Date Jade Lewis MD [address] [place] [id number] PCP - General Internal Medicine 04/25/22 documented as of this encounter
--- OUTSIDE RECORDS SUMMARY | 2024-04-05 13:06 | XMS_ITS | Encounter Summary ---
Author Organization [facility] Address [address] [place] [address] Care Team Providers Care Butcherette Name Role Phone Lainey Cody ESTUARDO Primary Care Provider [phone] Encounter Details Date Type Department Care Team (Latest Contact Info) Description 03/14/2024 Travel Social History Tobacco Use Types Packs/Day Years Used Date Smoking Tobacco: Former Passive Smoke Exposure: Never Smokeless Tobacco: Never Comments:quit yrs ago Alcohol Use Standard Drinks/Week [...] Diagnoses Not on filedocumented in this encounter Additional Health Concerns Assessment Noted Time PHQ-9 Depression Total Score: 0 03/14/19 9:51 AM PST documented as of this encounter Care Teams Butcherette Relationship Specialty Start Date End Date Lainey Cody FNP [address] [place] [address] PCP - General Internal Medicine 12/11/23 documented as of this encounter
[2024-04-05] MEDS: vancomycin/NS 2,000 MG/500 ML PLAST..BAG 250 MG IV (13:19)
[2024-04-05 13:21] LABS: C Reactive Protein 32.53 mg/dL (< or = 0.50)
--- NOTE | 2024-04-05 13:44 | P.CONGS_ITS ---
<Statement entered by Baltazar Cannon MD - 04/07/24 10:06> I have seen and evaluated the patient and agree with history, findings, assessment and plan documented by Amarilis Mcdaniels PA-c. History of Present Illness Consult details Consult date: 04/05/24 Narrative: We were consulted today for Beau, who is presenting to the ER after dialysis, for concerns of his TMA site. He recently was seen in the office on Monday and the sutures and francisco were removed. There was mild erythema and the central portion of the incision line was slightly open, not completely healed over. Dr Cannon prescribed Keflex for 10d. There is a question that at the facility he is at for rehab, they are allowing him to bear weight on the TMA site. There is also a question of whether his dressings are being changed daily, or at least 3/week. He presents today for increased pain and redness of the TMA site with darkened areas. There is also significant drainage in the incision site. He did complete his dialysis prior to presenting to the ER. He has leukocytosis and foot XR was negative for osteo. He does not endorse pain at the incision site but does endorse significant pain above and below the site as well as extending towards the ankle. Review of Systems 2 Constitutional: Constitutional: Reports as per HPI and Denies weakness ENT: Reports Normal hearing present and Denies dizziness Cardiovascular: Cardiovascular: Reports as per HPI, Denies chest pain, Denies chest pain at rest, Denies chest pain with activity, Denies dyspnea and Denies dyspnea on exertion Respiratory: Respiratory: Reports as per HPI, Denies cough, Denies dyspnea and Denies dyspnea on exertion Gastrointestinal: Gastrointestinal: Reports as per HPI, Denies abdominal pain, Denies nausea and Denies vomiting Musculoskeletal: Musculoskeletal: Denies numbness Integumentary/Breasts: Skin/Breast: Reports as per HPI, Denies erythema and Denies wounds Neurologic: Reports Normal hearing present, Denies dizziness, Denies numbness, Denies Sensory deficit (Neuro) and Denies weakness Psychiatric: Psychiatric: Reports no additional psychiatric complaints Endocrine: Endocrine: Reports no additional endocrine complaints PMFSH Past Medical History Medical History Dry gangrene Chronic combined systolic and diastolic CHF (congestive heart failure) ESRD on dialysis Acute on chronic systolic and diastolic heart failure, NYHA class 3 HFrEF (heart failure with reduced ejection fraction) ESRD (end stage renal disease) Anemia ESRD (end stage renal disease) Chronic pericardial effusion Arthritis Asthma Restless leg syndrome Occlusive thrombus Pulmonary edema ROBERT (obstructive sleep apnea) Type 2 diabetes mellitus Hyperlipidemia Hypertension A-V fistula Falling Family History Family History Father No problems noted. Mother No problems noted. 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 daily) Alcohol intake: never Comment: counts correct Patient Tobacco Use Status: Former Tobacco user Tobacco use type: Cigarette Second Hand Smoke Exposure: No Advance Directives: Yes Advance Directives on File: Yes Advance Directives Date on File: 10/04/23 service: No Meds Allergies Allergy/AdvReac Type Severity Reaction Status Date / Time Iodinated Contrast Media Allergy Facial Verified 04/05/24 10:44 [Contrast Dye] Swelling Active Medications: Current Medications Vancomycin HCl (Vancomycin/Ns) 2,000 mg in 500 mls @ 250 mls/hr IV ONCE ONE Stop: 04/05/24 14:29 Last Admin: 04/05/24 13:19 Dose: 250 mls/hr Home Medications ?Medication ?Instructions ?Recorded ?Confirmed ?Last Taken ?Type albuterol sulfate 90 mcg/actuation 2 puff inhalation Q4H PRN 04/19/22 03/19/24 03/05/24 History aerosol inhaler Shortness Of Breath allopurinol 100 mg tablet 100 mg PO MOWEFR@1600 04/19/22 03/19/24 03/18/24 History atorvastatin 40 mg tablet 40 mg PO DAILY 04/19/22 03/19/24 03/19/24 History doxazosin 4 mg tablet 4 mg PO BEDTIME 04/19/22 03/19/24 03/18/24 History furosemide 80 mg tablet 80 mg PO DAILY 04/19/22 03/19/24 03/19/24 History ipratropium 0.5 mg-albuterol 3 mg 3 ml inhalation QID PRN Wheezing 04/19/22 03/19/24 Unknown History (2.5 mg base)/3 mL nebulization soln omeprazole 20 mg capsule,delayed 20 mg PO DAILY@0630 04/19/22 03/19/24 03/19/24 History release sennosides 8.6 mg-docusate sodium 1 tab PO DAILY PRN Constipation 04/19/22 03/19/24 04/19/22 History 50 mg tablet (Senna-Time S) insulin glargine 100 unit/mL (3 22 unit subcut BEDTIME 04/10/23 03/19/24 03/18/24 History mL) subcutaneous pen (Lantus Solostar U-100 Insulin) insulin lispro 100 unit/mL 1 sliding scale dose subcut TIDAC 04/10/23 03/19/24 03/18/24 History subcutaneous pen aspirin 81 mg tablet,delayed 81 mg PO DAILY 06/20/23 03/19/24 03/19/24 History release pregabalin 75 mg capsule 75 mg PO DAILY 06/20/23 03/19/24 03/19/24 History fluticasone fur. 200 mcg-umeclid 1 ea inhalation DAILY 01/24/24 03/19/24 03/19/24 History 62.5 mcg-vilant 25 mcg inhalat.powder (Trelegy Ellipta) hydralazine 25 mg tablet 25 mg PO TID 01/24/24 03/19/24 03/19/24 History sucroferric oxyhydroxide 500 mg 500 mg PO TID 01/24/24 03/19/24 03/19/24 History chewable tablet (Velphoro) cefpodoxime 200 mg tablet 200 mg PO DAILY 04/05/24 Unknown History oxycodone 5 mg tablet 5 mg PO TID PRN pain 04/05/24 Unknown History pantoprazole 40 mg tablet,delayed mg PO DAILY 04/05/24 Unknown History release prednisone 10 mg tablet mg 04/05/24 Unknown History Physical Exam 2 Vital Signs: Vital Signs: Last Vital Signs Temp 98.8 F 04/05/24 10:37 Pulse 72 04/05/24 12:00 Resp 18 04/05/24 12:00 BP 162/79 H 04/05/24 12:00 Pulse Ox 98 04/05/24 12:00 O2 Del Method Room Air 04/05/24 12:00 Oxygen Flow Rate 2 04/05/24 10:37 BMI result Body Mass Index 29.2 Const: General: comfortable and no acute distress O rientation/consciousness: patient oriented x3 HEENT: Ears: hearing grossly normal bilaterally Resp: Effort & Inspection: normal respiratory effort and able to speak in complete sentences Auscultation: clear to auscultation bilaterally Cardio: Rate: regular rate Rhythm: regular rhythm Heart sounds: S1 normal heart sound present and S2 normal heart sound present Bruits: no abdominal aortic bruits, no carotid bruits, no femoral bruits and no renal bruits GI: Palpation (GI): No Abdominal aortic bruit present Neuro: General: patient oriented x3 Cranial nerves: Yes Normal hearing present Sensory Exam: No Sensory deficit (Neuro) Extrem: Other: Right TMA site: pictures in ER chart. Incision site oozing blood and serous fluid. Dry gangrene noted all around the TMA site. Dark erythema spreading out from the dry gangrene towards the ankle and plantar section of the foot. Unable to palpate the DP pulse due to pain but the pt has a strong and palpable PT pulse. Results Labs 04/05/24 11:14 04/05/24 11:14 Labs: Abnormal lab results 04/05/24 Range/Units 11:14 WBC 26.9 H (4.8-10.8) X10*3/uL RBC 4.16 L (4.60-5.80) X10*6/uL Hgb 9.6 L (14.0-18.0) g/dl Hct 31.0 L (42.0-52.0) % MCV 74.5 L (80.0-98.0) fL MCH 23.1 L (27.0-33.0) pg RDW 16.4 H (11.0-16.0) % Immature Gran % (Auto) 0.7 H (0.0-0.4) % Neut % (Auto) 90.3 H (45-73) % Lymph % (Auto) 3.1 L (20-40) % Lymph # (Auto) 0.8 L (1.2-4.9) X10*3/uL [place] # (Auto) 1.4 H (0.1-1.2) X10*3/uL Abs Immat Gran (auto) 0.19 H (0.00-0.03) X10*3/uL Absolute Neuts (auto) 24.2 H (2.0-8.3) x10*3/uL PT 14.8 H (10.9-12.4) SEC INR 1.3 H (0.9-1.1) Carbon Dioxide 31 H (22-29) mmol/L BUN 24 H (9-16) mg/dL Creatinine 3.79 H (0.5-1.4) mg/dL Random Glucose 188 H (60-115) mg/dL AST 52 H (5-37) U/L Alkaline Phosphatase 274 H (39-117) U/L C-Reactive Protein 32.53 H (< or = 0.50) mg/dL Albumin 3.2 L (3.5-5.0) g/dL Short CBC 04/05/24 Range/Units 11:14 WBC 26.9 H (4.8-10.8) X10*3/uL Hgb 9.6 L (14.0-18.0) g/dl Hct 31.0 L (42.0-52.0) % Plt Count 291 (160-400) X10*3/uL BMP 04/05/24 11:14 Sodium 142 Potassium 4.1 D Chloride 98 Carbon Dioxide 31 H BUN 24 H Creatinine 3.79 H Calcium 8.8 Liver Function 04/05/24 Range/Units 11:14 Total Bilirubin 0.5 (0.0-1.0) mg/dL Direct Bilirubin 0.2 (0.0-0.5) mg/dL AST 52 H (5-37) U/L ALT 37 (0-40) U/L Alkaline Phosphatase 274 H (39-117) U/L Albumin 3.2 L (3.5-5.0) g/dL All other labs normal. Assessment and Plan (1) Dehiscence of wound: Status: Acute Mundo Yanez is presenting to the ER today for an infection of the right TMA site. He s/p right TMA from 03/19/24. He was sent to Rehab at [address] [place] [address]. There are questions about the pt bearing weight on the site as well as dressing changes not happening as frequently as they should be. The pt did present to our office on Monday, and the site has mild erythema but was healing well. He was placed on oral abx with a 2w follow up. The pt presented today s/p dialysis for concerns of infection of the TMA site. We recommend IV Abx with dressing changes at least daily (may need more than once a day due to drainage) with Ca alginate, 4x4, and Kerlix wrap. There is no acute vascular surgical intervention at this point. We will reassess on Monday. We will continue to monitor. Thank you for the consult. If there are any questions or concerns, please do not hesitate to reach out to us. Procedures Date of Service Date of Service: 04/05/24
--- NOTE | 2024-04-05 13:51 | P.HPHOSP_ITS ---
History of Present Illness Date of Service: 04/05/24 Chief Complaint: Ampuated wound ? infection Pt is a 68-year-old [place] Islander-speaking male with a PMH significant for?ESRD on HD M/W/F last dialyzed earlier today, insulin-dependent type 2 diabetes, peripheral vascular disease, HFrEF (EF35%), HTN, HLD, chronically on 2L home O2, GERD, and ROBERT on CPAP, PVD recent Right TMA on 03/19 osteomylitis of toes and non healing wound and was discharged to rehab for wound care. He was sent from dialysis due tth open wound that is draining,and family increasingly concerned about his care at the facility. He had a vascular follow up appointment 04/02 during which no major concerns were raised about the wound which appear to be much worse today (see pic below), although hard to tell if infected or not, at any event the vascular surgeon is recommending IV Abx and is not excluding the posibility of further ampuation at this time. He has no fever, yet WBC is 26K. ESR is 98. Planin dickson shows s/p ampuation and no evidence of osteomyelitis (OM), he is initiated on vancomycin and Zosyn. 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 Mother No problems noted. Surgical History Recurrent pleural effusion Pleural effusion on right (07/13/23) History of surgery H/O colonoscopy Social History Household Members: Children Household Members Other:: son Housing: Apartment Do you presently have visiting nurse or other home services: Yes (MEDIA PROFESSIONAL daily) Alcohol intake: never Comment: counts correct Patient Tobacco Use Status: Former Tobacco user Tobacco use type: Cigarette Smoked in Last 30 Days: No Second Hand Smoke Exposure: No Use of substances other than those prescribed or required for medical reasons: No Currently Displaying Signs/Symptoms of Drug Intoxication Withdrawal: No Do you feel safe in your current relationship?: No Current Relationship Advance Directives: Yes Advance Directives on File: Yes Advance Directives Date on File: 10/04/23 Do you have a plan to hurt others: No Plan Recently lost weight without trying: Unsure Nutrition Risks: No Nutritional Risk Poor oral hygiene: No service: No Meds Allergies Allergy/AdvReac Type Severity Reaction Status Date / Time Iodinated Contrast Media Allergy Facial Verified 04/05/24 10:44 [Contrast Dye] Swelling Active Medications: Current Medications Vancomycin HCl (Vancomycin/Ns) 2,000 mg in 500 mls @ 250 mls/hr IV ONCE ONE Stop: 04/05/24 14:29 Last Admin: 04/05/24 13:19 Dose: 250 mls/hr Home Medications ?Medication ?Instructions ?Recorded ?Confirmed ?Last Taken ?Type albuterol sulfate 90 mcg/actuation 2 puff inhalation Q4H PRN 04/19/22 04/05/24 03/05/24 History aerosol inhaler Shortness Of Breath allopurinol 100 mg tablet 100 mg PO MOWEFR@1600 04/19/22 04/05/24 03/18/24 History atorvastatin 40 mg tablet 40 mg PO SUTUTHSA@89904/19/22 04/05/24 03/19/24 History doxazosin 4 mg tablet 4 mg PO BEDTIME 04/19/22 04/05/24 03/18/24 History furosemide 80 mg tablet 80 mg PO SUTUTHSA@89904/19/22 04/05/24 03/19/24 History ipratropium 0.5 mg-albuterol 3 mg 3 ml inhalation QID PRN Wheezing 04/19/22 04/05/24 Unknown History (2.5 mg base)/3 mL nebulization soln omeprazole 20 mg capsule,delayed 20 mg PO DAILY@0630 04/19/22 04/05/24 03/19/24 History release insulin glargine 100 unit/mL (3 22 unit subcut BEDTIME 04/10/23 04/05/24 03/18/24 History mL) subcutaneous pen (Lantus Solostar U-100 Insulin) insulin lispro 100 unit/mL 1 sliding scale dose subcut TIDAC 04/10/23 04/05/24 03/18/24 History subcutaneous pen aspirin 81 mg tablet,delayed 81 mg PO SUTUTHSA@06/20/23 04/05/24 03/19/24 History release pregabalin 75 mg capsule 75 mg PO SUTUTHSA@,,06/20/23 04/05/24 03/19/24 History hydralazine 25 mg tablet 25 mg PO SUTUTHSA@,15,01/24/24 04/05/24 03/19/24 History sucroferric oxyhydroxide 500 mg 500 mg PO TID 01/24/24 04/05/24 03/19/24 History chewable tablet (Velphoro) acetaminophen 325 mg tablet 650 mg PO Q4H PRN PAIN/FEVER 04/05/24 04/05/24 Unknown History aspirin 81 mg tablet,delayed 81 mg PO MOWEFR@159904/05/24 04/05/24 Unknown History release atorvastatin 40 mg tablet 40 mg PO MOWEFR@159904/05/24 04/05/24 Unknown History bisacodyl 10 mg rectal suppository 10 mg RI DAILY PRN Constipation 04/05/24 04/05/24 Unknown History (Dulcolax (bisacodyl)) carvedilol 6.25 mg tablet 6.25 mg PO BID 04/05/24 04/05/24 Unknown History cephalexin 500 mg capsule 500 mg PO BID 04/05/24 04/05/24 Unknown History fluticasone fur. 100 mcg-umeclid 1 inh inhalation DAILY 04/05/24 04/05/24 Unknown History 62.5 mcg-vilant 25 mcg inhalat.powder (Trelegy Ellipta) furosemide 80 mg tablet 80 mg PO MOWEFR@159904/05/24 04/05/24 Unknown History hydralazine 25 mg tablet 25 mg PO MOWEFR@159904/05/2404/05/25 Unknown History losartan 25 mg tablet 25 mg PO MOWEFR@1600 04/05/24 04/05/24 Unknown History losartan 25 mg tablet 25 mg PO SUTUTHSA@0900 04/05/24 04/05/24 Unknown History oxycodone 5 mg tablet 5 mg PO Q6H PRN pain 04/05/24 04/05/24 Unknown History pantoprazole 40 mg tablet,delayed 40 mg PO DAILY 04/05/24 04/05/24 Unknown History release pregabalin 75 mg capsule 75 mg PO MOWEFR@159904/05/24 04/05/24 Unknown History sennosides 8.6 mg tablet (senna) 8.6 mg PO DAILY PRN Constipation 04/05/24 04/05/24 Unknown History Physical Exam 2 Vital Signs and Narrative: Vital Signs: Last Vital Signs Temp 98.8 F 04/05/24 10:37 Pulse 72 04/05/24 12:00 Resp 18 04/05/24 12:00 BP 162/79 H 04/05/24 12:00 Pulse Ox 98 04/05/24 12:00 O2 Del Method Room Air 04/05/24 12:00 Oxygen Flow Rate 2 04/05/24 10:37 BMI result Body Mass Index 29.2 Const: Other: General: AO X 3, no acute distress Resp: CTA bilateral CVS: S1,S2,RRR GI: +BS, NT, no distention Skin: Neuro: motor grossly intact Psych: appropriate affect Results Labs 04/06/24 06:38 04/05/24 11:14 Labs: Laboratory Results - last 24 hr 04/05/24 11:14 MCV 74.5 L MCH 23.1 L MCHC 31.0 RDW 16.4 H Plt Count 291 MPV 10.6 Immature Gran % (Auto) 0.7 H Neut % (Auto) 90.3 H Lymph % (Auto) 3.1 L [place] % (Auto) 5.3 Eos % (Auto) 0.4 Baso % (Auto) 0.2 Lymph # (Auto) 0.8 L [place] # (Auto) 1.4 H Eos # (Auto) 0.1 Baso # (Auto) 0.1 Abs Immat Gran (auto) 0.19 H Absolute Neuts (auto) 24.2 H Absolute Nucleated RBC 0.000 Nucleated RBC % (auto) 0.0 Smear Tech's Comments VERIFIED PT 14.8 H INR 1.3 H Anion Gap 17 Estim Creat Clear Calc 17.7 Estimated GFR 16 Random Glucose 188 H Lactic Acid 0.8 Calcium 8.8 Magnesium 1.8 Total Bilirubin 0.5 Direct Bilirubin 0.2 AST 52 H ALT 37 Alkaline Phosphatase 274 H C-Reactive Protein 32.53 H Total Protein 8.0 Albumin 3.2 L Imaging Radiologist's Impressions: Impressions Foot X-Ray 04/05/24 10:50 IMPRESSION: Status post transmetatarsal amputation. No plain film evidence of osteomyelitis. If this remains a clinical concern, three-phase bone scan or MRI could be performed. Electronically signed by: Mj Hager MD 04/05/2024 11:04 AM EST Assessment and Plan (1) Dry gangrene: Status: Acute (2) Dehiscence of wound: Status: Acute Plan 68-year-old [place] Islander-speaking male with a PMH significant for?ESRD on HD M/W/F last dialyzed earlier today, insulin-dependent type 2 diabetes, peripheral vascular disease, HFrEF (EF35%), HTN, HLD, chronically on 2L home O2, GERD, and ROBERT on CPAP with recent ampuation and here with post amputation complications of open,draning and likely infected woud given high WBC, and elevated ESR, he doesn't meet sepsis critieria Right TMA site wound, concern for infection and likely failed ampuation continue Vanco and zosyn 04/05/24 Vascular f/u for likely debridment or amputation -ocal wound care Hypertensive urgency resume home meds once med rec done ESRD on HD M/W/F Last dialyzed earlier today Nephro consult Insulin-dependent type 2 diabetes Sliding-scale insulin, Lantus Diabetic diet HLD/PAD Continue aspirin, statin Gout Continue allopurinol GERD PPI Full Code DVT Prophylaxis: Heparin Pt will require a hospitalization of at least two nights for treatment of?right TMA site failed amputation, infection and need for IV Abx and likely surgical intervention Quality Stroke Does the patient have a stroke diagnosis?: No VTE Prior VTE?: No VTE Risk Level:: Medical - moderate - high VTE Device Contraindication: N/A - Device Ordered VTE Drug Contraindication: N/A - Med Ordered
[2024-04-05 13:59] LABS: Erythrocyte Sedimentation Rate 96 MM/HR (0-15)
--- NOTE | 2024-04-05 14:25 | PM.EVENT ---
Event Note Date of Service: 04/05/24 Event Note: Chart reviewed Usually followed by Shall arrange for HD Time Spent With Patient Time: Total time managing care of this patient today ____ minutes.
[2024-04-05 14:35] VITALS: BP 162/76; PULSE 67; RESP 16; TEMP 37; O2SAT 98
--- NOTE | 2024-04-05 15:15 | PHA.MEDREC ---
Pharmacy Consult ? Medication Reconciliation Pharmacy has completed the medication reconciliation.Utilized list from [facility]
[2024-04-05 16:52] LABS: Glucose, Whole Blood 155 mg/dL (60-115)
[2024-04-05 17:42] VITALS: BMI 28.0
[2024-04-05] MEDS: oxyCODONE HCl Immed Release 5 MG TABLET PO (18:05)
[2024-04-05 19:52] VITALS: BP 132/78; PULSE 82; RESP 20; TEMP 36.8; O2SAT 94
[2024-04-05 20:57] LABS: Glucose, Whole Blood 320 mg/dL (60-115)
[2024-04-05] MEDS: Doxazosin Mesylate 2 MG TABLET 4 MG PO (20:57)
[2024-04-05] MEDS: carvediloL 6.25 MG TABLET PO (20:57)
[2024-04-05] MEDS: Heparin Sodium,Porcine 5,000 UNIT/ML VIAL 5000 UNIT SUBCUT (20:57)
[2024-04-05] MEDS: Fluticasone Propionate Nasal 16 GM SPRAY 1 SPRAY NOSTRIL-B (21:07)
[2024-04-05] MEDS: Insulin Lispro 100 UNIT/ML 3 ML VIAL SUBCUT (21:07)
[2024-04-05] MEDS: Insulin Glargine,Hum.rec.anlog 100 UNIT/ML 10 ML VIAL 10 UNIT SUBCUT (21:09)
[2024-04-05] MEDS: Piperacillin Sodium/Tazobactam 2.25 GM in 0.9 % Sodium Chloride 50 ML IV (21:22)
[2024-04-05] MEDS: Acetaminophen 325 MG TABLET 650 MG PO (21:27)
[2024-04-06] MEDS: 0.9 % Sodium Chloride Flush 3 ML SYRINGE IVFLUSH ×4 (00:50→23:16)
[2024-04-06] MEDS: oxyCODONE HCl Immed Release 5 MG TABLET PO ×5 (02:16→20:07)
[2024-04-06 04:00] VITALS: BP 178/82; PULSE 71; RESP 20; TEMP 37.1; O2SAT 93
[2024-04-06] MEDS: Piperacillin Sodium/Tazobactam 2.25 GM in 0.9 % Sodium Chloride 50 ML IV ×3 (05:27→20:18)
[2024-04-06] MEDS: Omeprazole 20 MG CAPSULE.DR PO (05:29)
[2024-04-06] MEDS: Acetaminophen 325 MG TABLET 650 MG PO ×2 (05:31→20:07)
[2024-04-06 07:12] LABS: Basophils Absolute Auto 0.1 X10*3/uL (0.0-0.2); Basophils Percent Auto 0.3 % (0-2); Eosinophils Absolute Auto 0.2 X10*3/uL (0.0-0.4); Eosinophils Percent Auto 0.6 % (0-4); Hematocrit 30.4 % (42.0-52.0); Hemoglobin 9.5 g/dl (14.0-18.0); Imm Gran Abs Auto 0.53 X10*3/uL (0.00-0.03); Imm Gran Pct Auto 1.9 % (0.0-0.4); Lymphocytes Absolute Auto 1.6 X10*3/uL (1.2-4.9); Lymphocytes Percent Auto 5.6 % (20-40); MANUAL DIFF FLAG SCAN; Mean Corpuscular HGB Conc 31.3 g/dl (31.0-36.0); Mean Corpuscular Hemoglobin 22.9 pg (27.0-33.0); Mean Corpuscular Volume 73.3 fL (80.0-98.0); Mean Platelet Volume 10.6 fL (9.4-12.4); Monocytes Absolute Auto 1.7 X10*3/uL (0.1-1.2); Monocytes Percent Auto 6.1 % (2-11); NRBC Pct Auto 0.3 /100WBC (0.0-0.2); Neutrophils Absolute Auto 23.6 x10*3/uL (2.0-8.3); Neutrophils Percent Auto 85.5 % (45-73); PLT CLUMP 1; Red Blood Count 4.15 X10*6/uL (4.60-5.80); Red Cell Distribution Width 16.4 % (11.0-16.0); SCAN SMEAR FLAG 1
[2024-04-06 07:13] LABS: Platelet Count 246 X10*3/uL (160-400); White Blood Count 27.6 X10*3/uL (4.8-10.8)
[2024-04-06 07:22] VITALS: BP 137/85; PULSE 70; RESP 18; TEMP 36.4; O2SAT 92
[2024-04-06 07:41] LABS: Glucose, Whole Blood 114 mg/dL (60-115)
[2024-04-06 07:42] LABS: SLIDE REVIEW VERIFIED
[2024-04-06] MEDS: carvediloL 6.25 MG TABLET PO ×2 (08:20→20:08)
[2024-04-06] MEDS: Atorvastatin Calcium 40 MG TABLET PO (08:20)
[2024-04-06] MEDS: Losartan Potassium 25 MG TABLET PO (08:20)
[2024-04-06] MEDS: Furosemide 40 MG TABLET 80 MG PO (08:21)
[2024-04-06] MEDS: Fluticasone Propionate Nasal 16 GM SPRAY 1 SPRAY NOSTRIL-B ×2 (08:24→20:10)
[2024-04-06] MEDS: Aspirin Enteric Coated 81 MG TABLET.DR PO (08:27)
[2024-04-06] MEDS: Heparin Sodium,Porcine 5,000 UNIT/ML VIAL 5000 UNIT SUBCUT ×2 (08:27→20:09)
[2024-04-06] MEDS: hydrALAZINE HCl 25 MG TABLET PO ×3 (08:27→20:18)
[2024-04-06] MEDS: Pregabalin 75 MG CAPSULE PO ×3 (08:27→20:08)
--- NOTE | 2024-04-06 10:23 | HO.PM.IMPN ---
Subjective Subjective Date of Service: 04/06/24 Interval History: Pain in the foot Physical Exam Vital Signs: Vital Signs: Last Vital Signs Temp 97.6 F 04/06/24 07:22 Pulse 70 04/06/24 07:22 Resp 18 04/06/24 07:22 BP 137/85 04/06/24 07:22 Pulse Ox 92 04/06/24 07:22 O2 Del Method Room Air 04/06/24 07:22 O2 Flow Rate 2 04/05/24 14:35 Oxygen Flow Rate 2 04/05/24 10:37 BMI result Body Mass Index 28.0 General: AO X 3, no acute distress Resp: CTA bilateral CVS: S1,S2,RRR GI: +BS, NT, no distention Skin: 04/06 Neuro: motor grossly intact Psych: appropriate affect Objective Data Active Medications Acetaminophen (Acetaminophen 325 Mg Tablet) 650 mg PO Q6H PRN PRN Reason: Pain, Mild 1-3,fever,headache Last Admin: 04/06/24 05:31 Dose: 650 mg Documented By: JEAN Al Hydroxide/Mg Hydroxide (Magnesium Hydrox/Alum Hydrox 30 Ml Oral.Susp) 30 ml PO Q4H PRN PRN Reason: Heartburn Albuterol Sulfate (Albuterol Sulfate 90 Mcg 8 Gm Inhaler) 2 puff INHALE Q4H PRN PRN Reason: Shortness Of Breath Albuterol/Ipratropium (Albuterol/Iprat 2.5/0.5mg 3 Ml Ampul.Neb) 3 ml INHALE QID PRN PRN Reason: Wheezing Allopurinol (Allopurinol 100 Mg Tablet) 100 mg PO MOWEFR@1600 [facility] Aspirin (Aspirin Enteric Coated 81 Mg Tablet.) 81 mg PO MOWEFR@1600 [facility] Aspirin (Aspirin Enteric Coated 81 Mg Tablet.) 81 mg PO SUTUTHSA@09 [facility] Last Admin: 04/06/24 08:27 Dose: 81 mg Documented By: THUAN Atorvastatin Calcium (Atorvastatin Calcium 40 Mg Tablet) 40 mg PO MOWEFR@1600 [facility] Atorvastatin Calcium (Atorvastatin Calcium 40 Mg Tablet) 40 mg PO SUTUTHSA@0900 [facility] Last Admin: 04/06/24 08:20 Dose: 40 mg Documented By: THUAN Bisacodyl (Bisacodyl 10 Mg Supp.Rect) 10 mg ID DAILY PRN PRN Reason: Constipation Calcium Carbonate (Calcium Carbonate 750 Mg Tab.Chew) 750 mg PO Q4H PRN PRN Reason: Heartburn Carvedilol (Carvedilol 6.25 Mg Tablet) 6.25 mg PO BID [facility]; Protocol Last Admin: 04/06/24 08:20 Dose: 6.25 mg Documented By: THUAN Dextrose (Dextrose 50 % 25 Gm/50 Ml Syringe) 25 gm IVPUSH Q15M PRN; Protocol PRN Reason: per Hypoglycemia Standing Ord. Doxazosin Mesylate (Doxazosin Mesylate 2 Mg Tablet) 4 mg PO BEDTIME [facility]; Protocol Last Admin: 04/05/24 20:57 Dose: 4 mg Documented By: YAKOV-ZADRLeni Fluticasone Propionate (Fluticasone Propionate Nasal 16 Gm [place]) 1 spray NOSTRIL-B BID [facility] Last Admin: 04/06/24 08:24 Dose: 1 spray Documented By: THUAN Fluticasone/Umeclidinium/Vilanterol (Fluticasone/Umeclidinium/Vilanterol 100/62.5/25 Blst.W.Dev) 1 puff INHALE RDAILY [facility] Last Admin: 04/06/24 07:35 Dose: Not Given Documented By: SHRUTHI Non-Admin Reason: Patient Asleep Furosemide (Furosemide 40 Mg Tablet) 80 mg PO MOWEFR@1600 [facility]; Protocol Furosemide (Furosemide 40 Mg Tablet) 80 mg PO SUTUTHSA@0900 [facility]; Protocol Last Admin: 04/06/24 08:21 Dose: 80 mg Documented By: THUAN Glucose (Glucose Gel 15 Gm Gel..Gram.) 15 gm PO Q15M PRN; Protocol PRN Reason: per Hypoglycemia Standing Ord. Heparin Sodium (Porcine) (Heparin Sodium,Porcine 5,000 Unit/Ml Vial) 5,000 unit SUBCUT BID [facility] Last Admin: 04/06/24 08:27 Dose: 5,000 unit Documented By: THUAN Hydralazine HCl (Hydralazine Hcl 25 Mg Tablet) 25 mg PO MOWEFR@1600 [facility]; Protocol Hydralazine HCl (Hydralazine Hcl 25 Mg Tablet) 25 mg PO SUTUTHSA@09,15,21 [facility]; Protocol Last Admin: 04/06/24 08:27 Dose: 25 mg Documented By: THUAN Piperacillin Sod/Tazobactam (Sod 2.25 gm/ Sodium Chloride) 50 mls @ 100 mls/hr IV Q8H [facility] Last Infusion: 04/06/24 05:57 Dose: Infused Documented By: JEAN Vancomycin HCl 500 mg/ Sodium (Chloride) 110 mls @ 110 mls/hr IV ONCE ONE Stop: 04/05/24 15:29 Insulin Glargine (Insulin Glargine,Hum.Rec.Anlog 100 Unit/Ml 10 Ml Vial) 10 unit SUBCUT BEDTIME [facility] Last Admin: 04/05/24 21:09 Dose: 10 unit Documented By: JEAN Insulin Human Lispro (Insulin Lispro 100 Unit/Ml 3 Ml Vial) 0 unit SUBCUT QIDACHS [facility]; Protocol Last Admin: 04/06/24 08:30 Dose: Not Given Documented By: THUAN Non-Admin Reason: No Insulin Coverage Losartan Potassium (Losartan Potassium 25 Mg Tablet) 25 mg PO MOWEFR@1600 [facility]; Protocol Losartan Potassium (Losartan Potassium 25 Mg Tablet) 25 mg PO SUTUTHSA@0900 [facility]; Protocol Last Admin: 04/06/24 08:20 Dose: 25 mg Documented By: THUAN Magnesium Hydroxide (Milk Of Magnesia 30 Ml Oral.Susp) 30 ml PO DAILY PRN PRN Reason: Constipation Melatonin (Melatonin 3 Mg Tablet) 6 mg PO BEDTIME PRN PRN Reason: Insomnia Non-Formulary Medication (Sucroferric Oxyhydroxide [Velphoro]) 500 mg PO TID [facility] Omeprazole (Omeprazole 20 Mg Capsule.Dr) 20 mg PO DAILY@0630 [facility] Last Admin: 04/06/24 05:29 Dose: 20 mg Documented By: JEAN Ondansetron HCl (Ondansetron Hcl 4 Mg/2 Ml Vial) 4 mg IVPUSH Q8H PRN PRN Reason: Nausea and Vomiting Oxycodone HCl (Oxycodone Hcl Immed Release 5 Mg Tablet) 5 mg PO Q6H PRN PRN Reason: Pain, Severe (Pain Scale 7-10) Last Admin: 04/06/24 08:23 Dose: 5 mg Documented By: THUAN Pharmacy Consult (Consult Rx Vancomycin Dosing) 1 each MISCELLANE DAILY PRN PRN Reason: Consult order Polyethylene Glycol (Polyethylene Glycol 3350 17 Gm Powd.Pack) 17 gm PO DAILY PRN PRN Reason: Constipation Pregabalin (Pregabalin 75 Mg Capsule) 75 mg PO MOWEFR@1600 [facility] Pregabalin (Pregabalin 75 Mg Capsule) 75 mg PO SUTUTHSA@09,15,21 [facility] Last Admin: 04/06/24 08:27 Dose: 75 mg Documented By: THUAN Senna (Sennosides 8.6 Mg Tablet) 8.6 mg PO DAILY PRN PRN Reason: Constipation Sodium Chloride (0.9 % Sodium Chloride Flush 3 Ml Syringe) 3 ml IVFLUSH QSHIFT [facility] Last Admin: 04/06/24 08:32 Dose: 3 ml Documented By: THUAN Labs 04/06/24 06:38 04/05/24 11:14 Labs: Laboratory Results - last 24 hr 04/05/24 04/05/24 04/05/24 11:14 16:44 20:52 MCV 74.5 L MCH 23.1 L MCHC 31.0 RDW 16.4 H Plt Count 291 MPV 10.6 Immature Gran % (Auto) 0.7 H Neut % (Auto) 90.3 H Lymph % (Auto) 3.1 L Cross % (Auto) 5.3 Eos % (Auto) 0.4 Baso % (Auto) 0.2 Lymph # (Auto) 0.8 L [place] # (Auto) 1.4 H Eos # (Auto) 0.1 Baso # (Auto) 0.1 Abs Immat Gran (auto) 0.19 H Absolute Neuts (auto) 24.2 H Absolute Nucleated RBC 0.000 Nucleated RBC % (auto) 0.0 Smear Tech's Comments VERIFIED ESR 96 H PT 14.8 H INR 1.3 H Anion Gap 17 Estim Creat Clear Calc 17.7 Estimated GFR 16 POC Glucose 155 H 320 H Random Glucose 188 H Lactic Acid 0.8 Calcium 8.8 Magnesium 1.8 Total Bilirubin 0.5 Direct Bilirubin 0.2 AST 52 H ALT 37 Alkaline Phosphatase 274 H C-Reactive Protein 32.53 H Total Protein 8.0 Albumin 3.2 L 04/06/24 04/06/24 06:38 07:37 MCV 73.3 L MCH 22.9 L MCHC 31.3 RDW 16.4 H Plt Count 246 MPV 10.6 Immature Gran % (Auto) 1.9 H Neut % (Auto) 85.5 H Lymph % (Auto) 5.6 L [place] % (Auto) 6.1 Eos % (Auto) 0.6 Baso % (Auto) 0.3 Lymph # (Auto) 1.6 Cross # (Auto) 1.7 H Eos # (Auto) 0.2 Baso # (Auto) 0.1 Abs Immat Gran (auto) 0.53 H Absolute Neuts (auto) 23.6 H Absolute Nucleated RBC 0.070 H Nucleated RBC % (auto) 0.3 H Smear Tech's Comments VERIFIED ESR PT INR Anion Gap Estim Creat Clear Calc Estimated GFR POC Glucose 114 Random Glucose Lactic Acid Calcium Magnesium Total Bilirubin Direct Bilirubin AST ALT Alkaline Phosphatase C-Reactive Protein Total Protein Albumin Assessment and Plan (1) Cellulitis of right foot: Status: Acute (2) ESRD on dialysis: Status: Chronic (3) ESRD (end stage renal disease): Status: Acute (4) Type 2 diabetes mellitus: Status: Chronic Plan 68-year-old Estonian-speaking male with a PMH significant for?ESRD on HD M/W/F last dialyzed earlier today, insulin-dependent type 2 diabetes, peripheral vascular disease, HFrEF (EF35%), HTN, HLD, chronically on 2L home O2, GERD, and ROBERT on CPAP with recent ampuation and here with post amputation complications of open,draning and likely infected woud given high WBC, and elevated ESR, he doesn't meet sepsis critieria Right TMA site wound, concern for infection and likely failed ampuation, WBC slightly higher today continue Vanco and zosyn 04/05/24 Vascular f/u for likely debridment or amputation local wound care consider iD consult oxycodone for pain Hypertension, BP normal continue home meds (hydralazine, losartan, coreg, lasix) ESRD on HD M/W/F Last dialyzed earlier 04/05/24 Nephro consult Insulin-dependent type 2 diabetes Sliding-scale insulin, Lantus at reduce dose of 10 at hs, FBS 114 Diabetic diet HLD/PAD Continue aspirin, statin Gout Continue allopurinol GERD PPI Full Code DVT Prophylaxis: Heparin Pt will require a hospitalization of at least two nights for treatment of?right TMA site failed amputation, infection and need for IV Abx and likely surgical intervention Quality Stroke Does the patient have a stroke diagnosis?: No VTE Prior VTE?: No VTE Risk Level:: Medical - moderate - high VTE Device Contraindication: Treatment Not Indicated VTE Drug Contraindication: N/A - Med Ordered
[2024-04-06 11:09] LABS: Glucose, Whole Blood 198 mg/dL (60-115)
[2024-04-06] MEDS: Insulin Lispro 100 UNIT/ML 3 ML VIAL SUBCUT ×3 (11:29→20:09)
--- NOTE | 2024-04-06 14:58 | MHC.CM.PN ---
IMM 04/06/24, Pt. is SSO, he came to hosp from [address] [place], [place] [address], he was there for STR. He lives at home with son who takes care of him, goes to [facility]. When at home he has services from [facility]. HCP is on file and confirmed: Nestor PCP isn confirmed: Shayla Augustine. Pt would prefer to go home after hosp stay. DCP: either STR or home with services. CM to follow for DC needs.
[2024-04-06 15:17] VITALS: BP 171/73; PULSE 66; RESP 18; TEMP 36.6; O2SAT 96
[2024-04-06 16:07] LABS: Glucose, Whole Blood 276 mg/dL (60-115)
[2024-04-06 20:00] VITALS: BP 158/75; PULSE 73; RESP 20; TEMP 36.3; O2SAT 92
[2024-04-06 20:04] LABS: Glucose, Whole Blood 196 mg/dL (60-115)
[2024-04-06] MEDS: Doxazosin Mesylate 2 MG TABLET 4 MG PO (20:08)
[2024-04-06] MEDS: Insulin Glargine,Hum.rec.anlog 100 UNIT/ML 10 ML VIAL 10 UNIT SUBCUT (20:09)
[2024-04-07] VITALS (7 sets, daily range): BP systolic 140–190; BP diastolic 75–85; PULSE 68–75; RESP 14–20; TEMP 36.7–37.4; O2SAT 92–97
[2024-04-07] MEDS: oxyCODONE HCl Immed Release 5 MG TABLET PO ×5 (00:54→17:23)
[2024-04-07] MEDS: Piperacillin Sodium/Tazobactam 2.25 GM in 0.9 % Sodium Chloride 50 ML IV ×3 (05:10→20:13)
[2024-04-07] MEDS: Acetaminophen 325 MG TABLET 650 MG PO ×3 (05:12→19:56)
[2024-04-07] MEDS: Omeprazole 20 MG CAPSULE.DR PO (06:03)
[2024-04-07 06:36] LABS: MANUAL DIFF FLAG NO
[2024-04-07 06:39] LABS: Basophils Absolute Auto 0.1 X10*3/uL (0.0-0.2); Basophils Percent Auto 0.2 % (0-2); Eosinophils Absolute Auto 0.3 X10*3/uL (0.0-0.4); Eosinophils Percent Auto 1.3 % (0-4); Hematocrit 27.8 % (42.0-52.0); Hemoglobin 8.8 g/dl (14.0-18.0); Imm Gran Abs Auto 0.17 X10*3/uL (0.00-0.03); Imm Gran Pct Auto 0.7 % (0.0-0.4); Lymphocytes Absolute Auto 1.2 X10*3/uL (1.2-4.9); Lymphocytes Percent Auto 5.2 % (20-40); Mean Corpuscular HGB Conc 31.7 g/dl (31.0-36.0); Mean Corpuscular Hemoglobin 23.3 pg (27.0-33.0); Mean Corpuscular Volume 73.5 fL (80.0-98.0); Mean Platelet Volume 10.8 fL (9.4-12.4); Monocytes Absolute Auto 1.4 X10*3/uL (0.1-1.2); Monocytes Percent Auto 6.1 % (2-11); Neutrophils Absolute Auto 19.8 x10*3/uL (2.0-8.3); Neutrophils Percent Auto 86.5 % (45-73); Platelet Count 296 X10*3/uL (160-400); Red Blood Count 3.78 X10*6/uL (4.60-5.80); Red Cell Distribution Width 15.9 % (11.0-16.0); White Blood Count 22.8 X10*3/uL (4.8-10.8)
[2024-04-07 07:58] LABS: Glucose, Whole Blood 271 mg/dL (60-115)
[2024-04-07] MEDS: Fluticasone/Umeclidinium/Vilanterol 100/62.5/25 BLST.W.DEV 1 PUFF INHALE (08:08)
[2024-04-07] MEDS: Pregabalin 75 MG CAPSULE PO ×3 (08:25→20:13)
[2024-04-07] MEDS: Aspirin Enteric Coated 81 MG TABLET.DR PO (08:26)
[2024-04-07] MEDS: hydrALAZINE HCl 25 MG TABLET PO ×3 (08:26→20:02)
[2024-04-07] MEDS: carvediloL 6.25 MG TABLET PO ×2 (08:26→19:55)
[2024-04-07] MEDS: Insulin Lispro 100 UNIT/ML 3 ML VIAL SUBCUT ×2 (08:26→19:57)
[2024-04-07] MEDS: Atorvastatin Calcium 40 MG TABLET PO (08:26)
[2024-04-07] MEDS: Furosemide 40 MG TABLET 80 MG PO (08:26)
[2024-04-07] MEDS: Losartan Potassium 25 MG TABLET PO (08:26)
[2024-04-07] MEDS: Heparin Sodium,Porcine 5,000 UNIT/ML VIAL 5000 UNIT SUBCUT ×2 (08:27→19:57)
[2024-04-07] MEDS: 0.9 % Sodium Chloride Flush 3 ML SYRINGE IVFLUSH ×2 (08:27→14:30)
[2024-04-07] MEDS: Fluticasone Propionate Nasal 16 GM SPRAY 1 SPRAY NOSTRIL-B ×2 (08:33→19:59)
--- NOTE | 2024-04-07 09:57 | P.PNIM_ITS ---
Subjective Subjective Date of Service: 04/07/24 Interval History: less pain, otherwise no new issues Physical Exam 2 Vital Signs: Vital Signs: Last Vital Signs Temp 99.4 F 04/07/24 07:08 Pulse 68 04/07/24 07:08 Resp 18 04/07/24 08:09 BP 170/80 H 04/07/24 08:15 Pulse Ox 94 04/07/24 07:08 O2 Del Method Room Air 04/07/24 07:08 O2 Flow Rate 2 04/05/24 14:35 Oxygen Flow Rate 2 04/05/24 10:37 BMI result Body Mass Index 28.0 General: AO X 3, no acute distress Resp: CTA bilateral CVS: S1,S2,RRR GI: +BS, NT, no distention Skin: 04/06 04/08 Neuro: motor grossly intact Psych: appropriate affect Objective Data Active Medications Acetaminophen (Acetaminophen 325 Mg Tablet) 650 mg PO Q6H PRN PRN Reason: Pain, Mild 1-3,fever,headache Last Admin: 04/07/24 05:12 Dose: 650 mg Documented By: JEAN Al Hydroxide/Mg Hydroxide (Magnesium Hydrox/Alum Hydrox 30 Ml Oral.Susp) 30 ml PO Q4H PRN PRN Reason: Heartburn Albuterol Sulfate (Albuterol Sulfate 90 Mcg 8 Gm Inhaler) 2 puff INHALE Q4H PRN PRN Reason: Shortness Of Breath Albuterol/Ipratropium (Albuterol/Iprat 2.5/0.5mg 3 Ml Ampul.Neb) 3 ml INHALE QID PRN PRN Reason: Wheezing Allopurinol (Allopurinol 100 Mg Tablet) 100 mg PO MOWEFR@1600 [facility] Aspirin (Aspirin Enteric Coated 81 Mg Tablet.) 81 mg PO MOWEFR@1600 [facility] Aspirin (Aspirin Enteric Coated 81 Mg Tablet.) 81 mg PO SUTUTHSA@09 [facility] Last Admin: 04/07/24 08:26 Dose: 81 mg Documented By: THUAN Atorvastatin Calcium (Atorvastatin Calcium 40 Mg Tablet) 40 mg PO MOWEFR@1600 [facility] Atorvastatin Calcium (Atorvastatin Calcium 40 Mg Tablet) 40 mg PO SUTUTHSA@0900 [facility] Last Admin: 04/07/24 08:26 Dose: 40 mg Documented By: THUAN Bisacodyl (Bisacodyl 10 Mg Supp.Rect) 10 mg ND DAILY PRN PRN Reason: Constipation Calcium Carbonate (Calcium Carbonate 750 Mg Tab.Chew) 750 mg PO Q4H PRN PRN Reason: Heartburn Carvedilol (Carvedilol 6.25 Mg Tablet) 6.25 mg PO BID [facility]; Protocol Last Admin: 04/07/24 08:26 Dose: 6.25 mg Documented By: THUAN Dextrose (Dextrose 50 % 25 Gm/50 Ml Syringe) 25 gm IVPUSH Q15M PRN; Protocol PRN Reason: per Hypoglycemia Standing Ord. Doxazosin Mesylate (Doxazosin Mesylate 2 Mg Tablet) 4 mg PO BEDTIME [facility]; Protocol Last Admin: 04/06/24 20:08 Dose: 4 mg Documented By: JEAN Fluticasone Propionate (Fluticasone Propionate Nasal 16 Gm [place]) 1 spray NOSTRIL-B BID [facility] Last Admin: 04/07/24 08:33 Dose: 1 spray Documented By: THUAN Fluticasone/Umeclidinium/Vilanterol (Fluticasone/Umeclidinium/Vilanterol 100/62.5/25 Blst.W.Dev) 1 puff INHALE RDAILY [facility] Last Admin: 04/07/24 08:08 Dose: 1 puff Documented By: LAUREN Furosemide (Furosemide 40 Mg Tablet) 80 mg PO MOWEFR@1600 [facility]; Protocol Furosemide (Furosemide 40 Mg Tablet) 80 mg PO SUTUTHSA@0900 [facility]; Protocol Last Admin: 04/07/24 08:26 Dose: 80 mg Documented By: THUAN Glucose (Glucose Gel 15 Gm Gel..Gram.) 15 gm PO Q15M PRN; Protocol PRN Reason: per Hypoglycemia Standing Ord. Heparin Sodium (Porcine) (Heparin Sodium,Porcine 5,000 Unit/Ml Vial) 5,000 unit SUBCUT BID [facility] Last Admin: 04/07/24 08:27 Dose: 5,000 unit Documented By: THUAN Hydralazine HCl (Hydralazine Hcl 25 Mg Tablet) 25 mg PO MOWEFR@1600 [facility]; Protocol Hydralazine HCl (Hydralazine Hcl 25 Mg Tablet) 25 mg PO SUTUTHSA@09,15,21 [facility]; Protocol Last Admin: 04/07/24 08:26 Dose: 25 mg Documented By: THUAN Piperacillin Sod/Tazobactam (Sod 2.25 gm/ Sodium Chloride) 50 mls @ 100 mls/hr IV Q8H [facility] Last Infusion: 04/07/24 05:40 Dose: Infused Documented By: JEAN Vancomycin HCl 500 mg/ Sodium (Chloride) 110 mls @ 110 mls/hr IV ONCE ONE Stop: 04/05/24 15:29 Insulin Glargine (Insulin Glargine,Hum.Rec.Anlog 100 Unit/Ml 10 Ml Vial) 10 unit SUBCUT BEDTIME [facility] Last Admin: 04/06/24 20:09 Dose: 10 unit Documented By: JEAN Insulin Human Lispro (Insulin Lispro 100 Unit/Ml 3 Ml Vial) 0 unit SUBCUT QIDACHS [facility]; Protocol Last Admin: 04/07/24 08:26 Dose: 6 unit Documented By: THUAN Losartan Potassium (Losartan Potassium 25 Mg Tablet) 25 mg PO MOWEFR@1600 [facility]; Protocol Losartan Potassium (Losartan Potassium 25 Mg Tablet) 25 mg PO SUTUTHSA@0900 [facility]; Protocol Last Admin: 04/07/24 08:26 Dose: 25 mg Documented By: THUAN Magnesium Hydroxide (Milk Of Magnesia 30 Ml Oral.Susp) 30 ml PO DAILY PRN PRN Reason: Constipation Melatonin (Melatonin 3 Mg Tablet) 6 mg PO BEDTIME PRN PRN Reason: Insomnia Non-Formulary Medication (Sucroferric Oxyhydroxide [Velphoro]) 500 mg PO TID [facility] Omeprazole (Omeprazole 20 Mg Capsule.) 20 mg PO DAILY@0630 [facility] Last Admin: 04/07/24 06:03 Dose: 20 mg Documented By: JEAN Ondansetron HCl (Ondansetron Hcl 4 Mg/2 Ml Vial) 4 mg IVPUSH Q8H PRN PRN Reason: Nausea and Vomiting Oxycodone HCl (Oxycodone Hcl Immed Release 5 Mg Tablet) 5 mg PO Q4H PRN PRN Reason: Pain, Severe (Pain Scale 7-10) Last Admin: 04/07/24 09:18 Dose: 5 mg Documented By: THUAN Pharmacy Consult (Consult Rx Vancomycin Dosing) 1 each MISCELLANE DAILY PRN PRN Reason: Consult order Polyethylene Glycol (Polyethylene Glycol 3350 17 Gm Powd.Pack) 17 gm PO DAILY PRN PRN Reason: Constipation Pregabalin (Pregabalin 75 Mg Capsule) 75 mg PO MOWEFR@1600 [facility] Pregabalin (Pregabalin 75 Mg Capsule) 75 mg PO SUTUTHSA@09,15,21 [facility] Last Admin: 04/07/24 08:25 Dose: 75 mg Documented By: THUAN Senna (Sennosides 8.6 Mg Tablet) 8.6 mg PO DAILY PRN PRN Reason: Constipation Sodium Chloride (0.9 % Sodium Chloride Flush 3 Ml Syringe) 3 ml IVFLUSH QSHIFT [facility] Last Admin: 04/07/24 08:27 Dose: 3 ml Documented By: THUAN Labs 04/07/24 06:18 04/05/24 11:14 Labs: Laboratory Results - last 24 hr 04/06/24 04/06/24 04/06/24 11:04 16:02 20:00 MCV MCH MCHC RDW Plt Count MPV Immature Gran % (Auto) Neut % (Auto) Lymph % (Auto) [place] % (Auto) Eos % (Auto) Baso % (Auto) Lymph # (Auto) [place] # (Auto) Eos # (Auto) Baso # (Auto) Abs Immat Gran (auto) Absolute Neuts (auto) Absolute Nucleated RBC Nucleated RBC % (auto) POC Glucose 198 H 276 H 196 H 04/07/24 04/07/24 06:18 07:44 MCV 73.5 L MCH 23.3 L MCHC 31.7 RDW 15.9 Plt Count 296 MPV 10.8 Immature Gran % (Auto) 0.7 H Neut % (Auto) 86.5 H Lymph % (Auto) 5.2 L [place] % (Auto) 6.1 Eos % (Auto) 1.3 Baso % (Auto) 0.2 Lymph # (Auto) 1.2 [place] # (Auto) 1.4 H Eos # (Auto) 0.3 Baso # (Auto) 0.1 Abs Immat Gran (auto) 0.17 H Absolute Neuts (auto) 19.8 H Absolute Nucleated RBC 0.000 Nucleated RBC % (auto) 0.0 POC Glucose 271 H Microbiology Microbiology Results: Microbiology 04/05/24 12:38 Blood Culture - Preliminary Blood - Venous No growth after 24 hours. 04/05/24 12:50 Blood Culture - Preliminary Blood - Venous No growth after 24 hours. Assessment and Plan (1) Cellulitis of right foot: Status: Acute (2) ESRD on dialysis: Status: Chronic (3) ESRD (end stage renal disease): Status: Acute (4) Type 2 diabetes mellitus: Status: Chronic Plan 68-year-old Latvian-speaking male with a PMH significant for?ESRD on HD M/W/F last dialyzed earlier today, insulin-dependent type 2 diabetes, peripheral vascular disease, HFrEF (EF35%), HTN, HLD, chronically on 2L home O2, GERD, and ROBERT on CPAP with recent ampuation and here with post amputation complications of open,draning and likely infected woud given high WBC, and elevated ESR, he doesn't meet sepsis critieria Right TMA site wound, concern for infection and likely failed ampuation, WBC down to 22 from 27 continue Vanco and zosyn 04/05/24 Vascular f/u for likely debridment or amputation local wound care consider iD consult oxycodone for pain Hypertension, BP normal continue home meds (hydralazine, losartan, coreg, lasix) ESRD on HD M/W/ Last dialyzed earlier 04/05/24 Nephro consult Insulin-dependent type 2 diabetes Sliding-scale insulin, Lantus at reduce dose of 10 at hs, FBS 114 Diabetic diet HLD/PAD Continue aspirin, statin Gout Continue allopurinol GERD PPI Full Code DVT Prophylaxis: Heparin Pt will require a hospitalization of at least two nights for treatment of?right TMA site failed amputation, infection and need for IV Abx and likely surgical intervention Quality Stroke Does the patient have a stroke diagnosis?: No VTE Prior VTE?: No VTE Risk Level:: Medical - moderate - high VTE Device Contraindication: Treatment Not Indicated VTE Drug Contraindication: N/A - Med Ordered
--- NOTE | 2024-04-07 10:01 | HO.VASCPN ---
Subjective Subjective Date of Service: 04/07/24 Patient reports: no new complaints and feels better Interval history: Patient seen and examined. Status post transmetatarsal amputation with nonhealing amp site. Appears to be doing relatively well. No interval issues. Has undergone dialysis. Reports no pain. An according to nursing decreased drainage. Physical Exam Vital Signs: Vital Signs: Last Vital Signs Temp 99.4 F 04/07/24 07:08 Pulse 68 04/07/24 07:08 Resp 18 04/07/24 08:09 BP 170/80 H 04/07/24 08:15 Pulse Ox 94 04/07/24 07:08 O2 Del Method Room Air 04/07/24 07:08 O2 Flow Rate 2 04/05/24 14:35 Oxygen Flow Rate 2 04/05/24 10:37 BMI result Body Mass Index 28.0 Const: General: cooperative, healthy appearing and comfortable Orientation/consciousness: oriented to person, oriented to place and oriented to time HEENT: Head: Yes normal to inspection Neck: Neck: Yes normal visual inspection Carotids: no bruits Chest: Chest palpation & inspection: normal inspection of the chest Resp: Effort & Inspection: normal respiratory effort and able to speak in complete sentences Auscultation: clear to auscultation bilaterally, no crackles, no rales, no rhonchi and no wheezes Cardio: Rate: regular rate Rhythm: regular rhythm Heart sounds: S1 normal heart sound present and S2 normal heart sound present Bruits: no carotid bruits Peripheral pulses: Peripheral pulses 2+ throughout GI: Inspection: Yes normal to inspection Skin: Other: Right foot trans met amp incision line poorly healing with necrotic tissue. Wounds: no wounds Hair: normal Neuro: General: oriented to person, oriented to place and oriented to time Cranial nerves: Yes CN's II-XII intact bilaterally and Yes Normal hearing present Cognition (Neuro): normal cognition Motor exam (neuro): 5/5 motor strength present throughout Extrem: Other: venous exam: No significant superficial varicosities or spider telangiectasias, minimal edema General: No clubbing, No cyanosis and No edema Psych: Appearance: grossly normal Mental Status: mental status grossly normal Speech and movement: Normal speech and movement present Progress Note: A&P Assessment and plan (1) Status post transmetatarsal amputation of right foot: Status: Acute Assessment and Plan: In short patient has poorly healing transmetatarsal amputation. We will reassess tomorrow for possible surgical intervention on Monday. We will see if we can debride it further back or BKA. We will continue to follow this patient closely with you. Thank you for allowing us to assist in his care. If there are any questions or concerns please do not hesitate to contact us. Time Spent With Patient Time: Total time managing care of this patient today ____ minutes. Procedures Date of Service Date of Service: 04/07/24 Quality Stroke Does the patient have a stroke diagnosis?: No VTE Prior VTE?: No VTE Risk Level:: Medical - moderate - high VTE Device Contraindication: Treatment Not Indicated VTE Drug Contraindication: N/A - Med Ordered
[2024-04-07 11:44] LABS: Glucose, Whole Blood 132 mg/dL (60-115)
[2024-04-07 17:10] LABS: Glucose, Whole Blood 142 mg/dL (60-115)
[2024-04-07] MEDS: Doxazosin Mesylate 2 MG TABLET 4 MG PO (19:55)
[2024-04-07] MEDS: Insulin Glargine,Hum.rec.anlog 100 UNIT/ML 10 ML VIAL 10 UNIT SUBCUT (19:58)
[2024-04-07 20:47] LABS: Glucose, Whole Blood 224 mg/dL (60-115)
[2024-04-08] VITALS (8 sets, daily range): BP systolic 109–170; BP diastolic 53–90; PULSE 72–88; RESP 16–18; TEMP 36.9–37.3; O2SAT 91–98
[2024-04-08 06:13] LABS: MANUAL DIFF FLAG NO
[2024-04-08 06:21] LABS: Basophils Absolute Auto 0.1 X10*3/uL (0.0-0.2); Basophils Percent Auto 0.2 % (0-2); Eosinophils Absolute Auto 0.4 X10*3/uL (0.0-0.4); Eosinophils Percent Auto 2.2 % (0-4); Hematocrit 29.1 % (42.0-52.0); Hemoglobin 9.2 g/dl (14.0-18.0); Imm Gran Abs Auto 0.27 X10*3/uL (0.00-0.03); Imm Gran Pct Auto 1.3 % (0.0-0.4); Lymphocytes Absolute Auto 1.1 X10*3/uL (1.2-4.9); Lymphocytes Percent Auto 5.5 % (20-40); Mean Corpuscular HGB Conc 31.6 g/dl (31.0-36.0); Mean Corpuscular Hemoglobin 22.8 pg (27.0-33.0); Mean Platelet Volume 11.8 fL (9.4-12.4); Monocytes Percent Auto 5.2 % (2-11); Neutrophils Absolute Auto 17.1 x10*3/uL (2.0-8.3); Neutrophils Percent Auto 85.6 % (45-73); Platelet Count 362 X10*3/uL (160-400); Red Blood Count 4.04 X10*6/uL (4.60-5.80); Red Cell Distribution Width 15.9 % (11.0-16.0)
[2024-04-08] MEDS: Piperacillin Sodium/Tazobactam 2.25 GM in 0.9 % Sodium Chloride 50 ML IV ×3 (06:30→22:32)
[2024-04-08] MEDS: Omeprazole 20 MG CAPSULE.DR PO (06:30)
[2024-04-08] MEDS: 0.9 % Sodium Chloride Flush 3 ML SYRINGE IVFLUSH ×4 (06:30→22:34)
[2024-04-08] MEDS: oxyCODONE HCl Immed Release 5 MG TABLET PO (06:39)
[2024-04-08] MEDS: Heparin Sodium,Porcine 5,000 UNIT/ML VIAL 5000 UNIT SUBCUT ×2 (08:04→22:32)
[2024-04-08] MEDS: carvediloL 6.25 MG TABLET PO ×2 (08:05→22:28)
[2024-04-08] MEDS: Fluticasone Propionate Nasal 16 GM SPRAY 1 SPRAY NOSTRIL-B ×2 (08:09→22:34)
[2024-04-08 08:18] LABS: Glucose, Whole Blood 122 mg/dL (60-115)
[2024-04-08] MEDS: Fluticasone/Umeclidinium/Vilanterol 100/62.5/25 BLST.W.DEV 1 PUFF INHALE (08:18)
--- NOTE | 2024-04-08 08:53 | P.CONNP_ITS ---
History of Present Illness Reason for Consult Consult date: 04/08/24 Reason for consult: esrd Chief Complaint Chief complaint: Surgical wound infection History of Present Illness Narrative: 68-year-old man with a history of hypertension, CKD admitted by vascular surgery and is status post right transmetatarsal amputation. Surgery was unremarkable. Patient denies any nausea or vomiting. Patient is hemodynamically stable, stable vital signs. He usually undergoes hemodialysis at [facility]. He has usual sheet manager is Dr. Santana and we cover [facility] him [facility]. [facility] Past Medical History Medical History Dry gangrene Chronic combined systolic and diastolic CHF (congestive heart failure) ESRD on dialysis Acute on chronic systolic and diastolic heart failure, NYHA class 3 HFrEF (heart failure with reduced ejection fraction) ESRD (end stage renal disease) Anemia ESRD (end stage renal disease) Chronic pericardial effusion Arthritis Asthma Restless leg syndrome Occlusive thrombus Pulmonary edema ROBERT (obstructive sleep apnea) Type 2 diabetes mellitus Hyperlipidemia Hypertension A-V fistula Falling Family History Family History Father No problems noted. Mother No problems noted. Surgical History Surgical History Recurrent pleural effusion Pleural effusion on right (07/13/23) History of surgery H/O colonoscopy Social History Social History Household Members: Children Household Members Other:: son Housing: Apartment Do you presently have visiting nurse or other home services: Yes ([employer] daily) Alcohol intake: never Comment: counts correct Patient Tobacco Use Status: Former Tobacco user Tobacco use type: Cigarette Smoked in Last 30 Days: No Second Hand Smoke Exposure: No Use of substances other than those prescribed or required for medical reasons: No Currently Displaying Signs/Symptoms of Drug Intoxication Withdrawal: No Do you feel safe in your current relationship?: No Current Relationship Advance Directives: Yes Advance Directives on File: Yes Advance Directives Date on File: 10/04/23 Do you have a plan to hurt others: No Plan Recently lost weight without trying: Unsure Nutrition Risks: No Nutritional Risk Poor oral hygiene: No service: No Meds Allergies Allergy/AdvReac Type Severity Reaction Status Date / Time Iodinated Contrast Media Allergy Facial Verified 04/05/24 10:44 [Contrast Dye] Swelling Active Medications: Current Medications Acetaminophen (Acetaminophen 325 Mg Tablet) 650 mg PO Q6H PRN PRN Reason: Pain, Mild 1-3,fever,headache Last Admin: 04/07/24 19:56 Dose: 650 mg Al Hydroxide/Mg Hydroxide (Magnesium Hydrox/Alum Hydrox 30 Ml Oral.Susp) 30 ml PO Q4H PRN PRN Reason: Heartburn Albuterol Sulfate (Albuterol Sulfate 90 Mcg 8 Gm Inhaler) 2 puff INHALE Q4H PRN PRN Reason: Shortness Of Breath Albuterol/Ipratropium (Albuterol/Iprat 2.5/0.5mg 3 Ml Ampul.Neb) 3 ml INHALE QID PRN PRN Reason: Wheezing Allopurinol (Allopurinol 100 Mg Tablet) 100 mg PO MOWEFR@1600 [facility] Aspirin (Aspirin Enteric Coated 81 Mg Tablet.) 81 mg PO MOWEFR@1600 [facility] Aspirin (Aspirin Enteric Coated 81 Mg Tablet.) 81 mg PO SUTUTHSA@09 [facility] Last Admin: 04/07/24 08:26 Dose: 81 mg Atorvastatin Calcium (Atorvastatin Calcium 40 Mg Tablet) 40 mg PO MOWEFR@1600 [facility] Atorvastatin Calcium (Atorvastatin Calcium 40 Mg Tablet) 40 mg PO SUTUTHSA@0900 [facility] Last Admin: 04/07/24 08:26 Dose: 40 mg Bisacodyl (Bisacodyl 10 Mg Supp.Rect) 10 mg HI DAILY PRN PRN Reason: Constipation Calcium Carbonate (Calcium Carbonate 750 Mg Tab.Chew) 750 mg PO Q4H PRN PRN Reason: Heartburn Carvedilol (Carvedilol 6.25 Mg Tablet) 6.25 mg PO BID [facility]; Protocol Last Admin: 04/08/24 08:05 Dose: 6.25 mg Dextrose (Dextrose 50 % 25 Gm/50 Ml Syringe) 25 gm IVPUSH Q15M PRN; Protocol PRN Reason: per Hypoglycemia Standing Ord. Doxazosin Mesylate (Doxazosin Mesylate 2 Mg Tablet) 4 mg PO BEDTIME [facility]; Protocol Last Admin: 04/07/24 19:55 Dose: 4 mg Fluticasone Propionate (Fluticasone Propionate Nasal 16 Gm [place]) 1 spray NOSTRIL-B BID [facility] Last Admin: 04/08/24 08:09 Dose: 1 spray Fluticasone/Umeclidinium/Vilanterol (Fluticasone/Umeclidinium/Vilanterol 100/62.5/ Blst.W.Dev) 1 puff INHALE RDAILY [facility] Last Admin: 04/08/24 08:18 Dose: 1 puff Furosemide (Furosemide 40 Mg Tablet) 80 mg PO MOWEFR@1600 [facility]; Protocol Furosemide (Furosemide 40 Mg Tablet) 80 mg PO SUTUTHSA@0900 [facility]; Protocol Last Admin: 04/07/24 08:26 Dose: 80 mg Glucose (Glucose Gel 15 Gm Gel..Gram.) 15 gm PO Q15M PRN; Protocol PRN Reason: per Hypoglycemia Standing Ord. Heparin Sodium (Porcine) (Heparin Sodium,Porcine 5,000 Unit/Ml Vial) 5,000 unit SUBCUT BID [facility] Last Admin: 04/08/24 08:04 Dose: 5,000 unit Hydralazine HCl (Hydralazine Hcl 25 Mg Tablet) 25 mg PO MOWEFR@1600 [facility]; Protocol Hydralazine HCl (Hydralazine Hcl 25 Mg Tablet) 25 mg PO SUTUTHSA@09,15,21 [facility]; Protocol Last Admin: 04/07/24 20:02 Dose: 25 mg Piperacillin Sod/Tazobactam (Sod 2.25 gm/ Sodium Chloride) 50 mls @ 100 mls/hr IV Q8H [facility] Last Infusion: 04/08/24 07:54 Dose: Infused Vancomycin HCl 500 mg/ Sodium (Chloride) 110 mls @ 110 mls/hr IV ONCE ONE Stop: 04/05/24 15:29 Insulin Glargine (Insulin Glargine,Hum.Rec.Anlog 100 Unit/Ml 10 Ml Vial) 10 unit SUBCUT BEDTIME [facility] Last Admin: 04/07/24 19:58 Dose: 10 unit Insulin Human Lispro (Insulin Lispro 100 Unit/Ml 3 Ml Vial) 0 unit SUBCUT QIDACHS [facility]; Protocol Last Admin: 04/08/24 07:54 Dose: Not Given Losartan Potassium (Losartan Potassium 25 Mg Tablet) 25 mg PO MOWEFR@1600 [facility]; Protocol Losartan Potassium (Losartan Potassium 25 Mg Tablet) 25 mg PO SUTUTHSA@0900 [facility]; Protocol Last Admin: 04/07/24 08:26 Dose: 25 mg Magnesium Hydroxide (Milk Of Magnesia 30 Ml Oral.Susp) 30 ml PO DAILY PRN PRN Reason: Constipation Melatonin (Melatonin 3 Mg Tablet) 6 mg PO BEDTIME PRN PRN Reason: Insomnia Non-Formulary Medication (Sucroferric Oxyhydroxide [Velphoro]) 500 mg PO TID [facility] Omeprazole (Omeprazole 20 Mg Capsule.Dr) 20 mg PO DAILY@0630 [facility] Last Admin: 04/08/24 06:30 Dose: 20 mg Ondansetron HCl (Ondansetron Hcl 4 Mg/2 Ml Vial) 4 mg IVPUSH Q8H PRN PRN Reason: Nausea and Vomiting Oxycodone HCl (Oxycodone Hcl Immed Release 5 Mg Tablet) 5 mg PO Q4H PRN PRN Reason: Pain, Severe (Pain Scale 7-10) Last Admin: 04/08/24 06:39 Dose: 5 mg Pharmacy Consult (Consult Rx Vancomycin Dosing) 1 each MISCELLANE DAILY PRN PRN Reason: Consult order Polyethylene Glycol (Polyethylene Glycol 3350 17 Gm Powd.Pack) 17 gm PO DAILY PRN PRN Reason: Constipation Pregabalin (Pregabalin 75 Mg Capsule) 75 mg PO MOWEFR@1600 [facility] Pregabalin (Pregabalin 75 Mg Capsule) 75 mg PO SUTUTHSA@,, [facility] Last Admin: 04/07/24 20:13 Dose: 75 mg Senna (Sennosides 8.6 Mg Tablet) 8.6 mg PO DAILY PRN PRN Reason: Constipation Sodium Chloride (0.9 % Sodium Chloride Flush 3 Ml Syringe) [facility] Last Admin: 04/08/24 08:10 Dose: 3 ml Home Medications ?Medication ?Instructions ?Recorded ?Confirmed ?Last Taken ?Type albuterol sulfate 90 mcg/actuation 2 puff inhalation Q4H PRN 04/19/22 04/05/24 03/05/24 History aerosol inhaler Shortness Of Breath allopurinol 100 mg tablet 100 mg PO MOWEFR@1600 04/19/22 04/05/24 03/18/24 History atorvastatin 40 mg tablet 40 mg PO SUTUTHSA@0900 04/19/22 04/05/24 03/19/24 History doxazosin 4 mg tablet 4 mg PO BEDTIME 04/19/22 04/05/2403/18/25 History furosemide 80 mg tablet 80 mg PO SUTUTHSA@0900 04/19/22 04/05/24 03/19/24 History ipratropium 0.5 mg-albuterol 3 mg 3 ml inhalation QID PRN Wheezing 04/19/22 04/05/24 Unknown History (2.5 mg base)/3 mL nebulization soln omeprazole 20 mg capsule,delayed 20 mg PO DAILY@0630 04/19/22 04/05/24 03/19/24 History release insulin glargine 100 unit/mL (3 22 unit subcut BEDTIME 04/10/23 04/05/24 03/18/24 History mL) subcutaneous pen (Lantus Solostar U-100 Insulin) insulin lispro 100 unit/mL 1 sliding scale dose subcut TIDAC 04/10/23 04/05/24 03/18/24 History subcutaneous pen aspirin 81 mg tablet,delayed 81 mg PO SUTUTHSA@09 06/20/23 04/05/24 03/19/24 History release pregabalin 75 mg capsule 75 mg PO SUTUTHSA@,,06/20/23 04/05/24 03/19/24 History hydralazine 25 mg tablet 25 mg PO SUTUTHSA@,15,01/24/24 04/05/24 03/19/24 History sucroferric oxyhydroxide 500 mg 500 mg PO TID 01/24/24 04/05/24 03/19/24 History chewable tablet (Velphoro) acetaminophen 325 mg tablet 650 mg PO Q4H PRN PAIN/FEVER 04/05/24 04/05/24 Unknown History aspirin 81 mg tablet,delayed 81 mg PO MOWEFR@1600 04/05/24 04/05/24 Unknown History release atorvastatin 40 mg tablet 40 mg PO MOWEFR@1600 04/05/24 04/05/24 Unknown History bisacodyl 10 mg rectal suppository 10 mg HI DAILY PRN Constipation 04/05/24 04/05/24 Unknown History (Dulcolax (bisacodyl)) carvedilol 6.25 mg tablet 6.25 mg PO BID 04/05/24 04/05/24 Unknown History cephalexin 500 mg capsule 500 mg PO BID 04/05/24 04/05/24 Unknown History fluticasone fur. 100 mcg-umeclid 1 inh inhalation DAILY 04/05/24 04/05/24 Unknown History 62.5 mcg-vilant 25 mcg inhalat.powder (Trelegy Ellipta) furosemide 80 mg tablet 80 mg PO MOWEFR@1600 04/05/24 04/05/24 Unknown History hydralazine 25 mg tablet 25 mg PO MOWEFR@159904/05/24 04/05/24 Unknown History losartan 25 mg tablet 25 mg PO MOWEFR@159904/05/24 04/05/24 Unknown History losartan 25 mg tablet 25 mg PO SUTUTHSA@0900 04/05/24 04/05/24 Unknown History oxycodone 5 mg tablet 5 mg PO Q6H PRN pain 04/05/24 04/05/24 Unknown History pantoprazole 40 mg tablet,delayed 40 mg PO DAILY 04/05/24 04/05/24 Unknown History release pregabalin 75 mg capsule 75 mg PO MOWEFR@159904/05/24 04/05/24 Unknown History sennosides 8.6 mg tablet (senna) 8.6 mg PO DAILY PRN Constipation 04/05/24 04/05/24 Unknown History Physical Exam Vital Signs: Last Vital Signs Temp 99.2 F 04/08/24 07:37 Pulse 80 04/08/24 08:19 Resp 18 04/08/24 08:19 BP 170/90 H 04/08/24 07:37 Pulse Ox 91 L 04/08/24 07:37 O2 Del Method Room Air 04/08/24 07:37 O2 Flow Rate 2 04/05/24 14:35 Oxygen Flow Rate 2 04/05/24 10:37 BMI result Body Mass Index 28.0 Comfortable Neck supple no JVD. Lungs entry equal no rales. Heart S1-S2 heard no gallop or rub. Abdomen soft nontender. Neuro alert awake oriented. No asterixis. Extremities no edema. Results Lab Results 04/09/24 06:34 04/08/24 18:59 Lab results: Chemistry 04/05/24 11:14 Sodium 142 Potassium 4.1 D Carbon Dioxide 31 H BUN 24 H Creatinine 3.79 H Calcium 8.8 Hematology 04/05/24 04/06/24 04/07/24 11:14 06:38 06:18 WBC 26.9 H 27.6 H 22.8 H Hgb 9.6 L 9.5 L 8.8 L Plt Count 291 246 296 04/08/24 05:51 WBC 20.0 H Hgb 9.2 L Plt Count 362 Assessment and Plan (1) Hypertension: Status: Acute (2) ESRD on dialysis: Status: Chronic Plan HD 3x week Increase time to 4 hr due to asterexis Optimize HCT Avoid hypotension Added Epogen for Anemia concur with other medical management Procedures Date of Service Date of Service: 04/09/24
--- NOTE | 2024-04-08 10:19 | HO.WOUND ---
Wound Consult: Initial 68yr old?male admitted to [facility] on 04/05/24 14:22- See progress notes and H&P for detailed history.? Wound consult placed for Right TMA site for wound vac evaluation.? Patient agreeable to assessment and photo documentation.? Seen at bedside with Dr. Cannon and KYLAH Ramos from Vascular Surgery team. Currently not ready for wound vac placement - per Dr. Cannon plan to bring patient to OR for debridement given fluctance and purulent drainage to the right lateral side of TMA incision. Will follow along - at this time will defer to Vascular Surgery. Dry gauze dressing applied at bedside.
[2024-04-08 11:00] LABS: Glucose, Whole Blood 145 mg/dL (60-115)
--- NOTE | 2024-04-08 11:36 | HO.PM.IMPN ---
Subjective Subjective Date of Service: 04/08/24 Interval History: Reporting 8/10 pain in the affected limb Physical Exam Vital Signs: Vital Signs: Last Vital Signs Temp 99.2 F 04/08/24 07:37 Pulse 80 04/08/24 08:19 Resp 18 04/08/24 08:19 BP 170/90 H 04/08/24 07:37 Pulse Ox 91 L 04/08/24 07:37 O2 Del Method Room Air 04/08/24 07:37 O2 Flow Rate 2 04/05/24 14:35 Oxygen Flow Rate 2 04/05/24 10:37 BMI result Body Mass Index 28.0 Comfortable Neck supple no JVD. Lungs entry equal no rales. Heart S1-S2 heard no gallop or rub. Abdomen soft nontender. skin:see earlier pic Neuro alert awake oriented. No asterixis. Extremities no edema. Objective Data Active Medications Acetaminophen (Acetaminophen 325 Mg Tablet) 650 mg PO Q6H PRN PRN Reason: Pain, Mild 1-3,fever,headache Last Admin: 04/07/24 19:56 Dose: 650 mg Documented By: SERA Al Hydroxide/Mg Hydroxide (Magnesium Hydrox/Alum Hydrox 30 Ml Oral.Susp) 30 ml PO Q4H PRN PRN Reason: Heartburn Albuterol Sulfate (Albuterol Sulfate 90 Mcg 8 Gm Inhaler) 2 puff INHALE Q4H PRN PRN Reason: Shortness Of Breath Albuterol/Ipratropium (Albuterol/Iprat 2.5/0.5mg 3 Ml Ampul.Neb) 3 ml INHALE QID PRN PRN Reason: Wheezing Allopurinol (Allopurinol 100 Mg Tablet) 100 mg PO MOWEFR@1600 [facility] Aspirin (Aspirin Enteric Coated 81 Mg Tablet.) 81 mg PO MOWEFR@1600 [facility] Aspirin (Aspirin Enteric Coated 81 Mg Tablet.) 81 mg PO SUTUTHSA@09 [facility] Last Admin: 04/07/24 08:26 Dose: 81 mg Documented By: THUAN Atorvastatin Calcium (Atorvastatin Calcium 40 Mg Tablet) 40 mg PO MOWEFR@1600 [facility] Atorvastatin Calcium (Atorvastatin Calcium 40 Mg Tablet) 40 mg PO SUTUTHSA@0900 [facility] Last Admin: 04/07/24 08:26 Dose: 40 mg Documented By: THUAN Bisacodyl (Bisacodyl 10 Mg Supp.Rect) 10 mg KS DAILY PRN PRN Reason: Constipation Calcium Carbonate (Calcium Carbonate 750 Mg Tab.Chew) 750 mg PO Q4H PRN PRN Reason: Heartburn Carvedilol (Carvedilol 6.25 Mg Tablet) 6.25 mg PO BID [facility]; Protocol Last Admin: 04/08/24 08:05 Dose: 6.25 mg Documented By: TUCKER Dextrose (Dextrose 50 % 25 Gm/50 Ml Syringe) 25 gm IVPUSH Q15M PRN; Protocol PRN Reason: per Hypoglycemia Standing Ord. Doxazosin Mesylate (Doxazosin Mesylate 2 Mg Tablet) 4 mg PO BEDTIME [facility]; Protocol Last Admin: 04/07/24 19:55 Dose: 4 mg Documented By: SERA Epoetin Keegan-epbx (Epoetin Keegan-Epbx 10,000 Unit/Ml Vial) 10,000 unit SUBCUT MoWeFr@1645 [facility] Fluticasone Propionate (Fluticasone Propionate Nasal 16 Gm [place]) 1 spray NOSTRIL-B BID [facility] Last Admin: 04/08/24 08:09 Dose: 1 spray Documented By: UTCKER Fluticasone/Umeclidinium/Vilanterol (Fluticasone/Umeclidinium/Vilanterol 100/62.5/25 Blst.W.Dev) 1 puff INHALE RDAILY [facility] Last Admin: 04/08/24 08:18 Dose: 1 puff Documented By: SHRUTHI Furosemide (Furosemide 40 Mg Tablet) 80 mg PO MOWEFR@1600 [facility]; Protocol Furosemide (Furosemide 40 Mg Tablet) 80 mg PO SUTUTHSA@0900 [facility]; Protocol Last Admin: 04/07/24 08:26 Dose: 80 mg Documented By: THUAN Glucose (Glucose Gel 15 Gm Gel..Gram.) 15 gm PO Q15M PRN; Protocol PRN Reason: per Hypoglycemia Standing Ord. Heparin Sodium (Porcine) (Heparin Sodium,Porcine 5,000 Unit/Ml Vial) 5,000 unit SUBCUT BID [facility] Last Admin: 04/08/24 08:04 Dose: 5,000 unit Documented By: TUCKER Hydralazine HCl (Hydralazine Hcl 25 Mg Tablet) 25 mg PO MOWEFR@1600 [facility]; Protocol Hydralazine HCl (Hydralazine Hcl 25 Mg Tablet) 25 mg PO SUTUTHSA@09,15,21 [facility]; Protocol Last Admin: 04/07/24 20:02 Dose: 25 mg Documented By: SERA Piperacillin Sod/Tazobactam (Sod 2.25 gm/ Sodium Chloride) 50 mls @ 100 mls/hr IV Q8H [facility] Last Infusion: 04/08/24 07:54 Dose: Infused Documented By: TUCKER Vancomycin HCl 500 mg/ Sodium (Chloride) 110 mls @ 110 mls/hr IV ONCE ONE Stop: 04/05/24 15:29 Insulin Glargine (Insulin Glargine,Hum.Rec.Anlog 100 Unit/Ml 10 Ml Vial) 10 unit SUBCUT BEDTIME [facility] Last Admin: 04/07/24 19:58 Dose: 10 unit Documented By: SERA Insulin Human Lispro (Insulin Lispro 100 Unit/Ml 3 Ml Vial) 0 unit SUBCUT QIDACHS [facility]; Protocol Last Admin: 04/08/24 11:08 Dose: Not Given Documented By: TUCKER Non-Admin Reason: No Insulin Coverage Losartan Potassium (Losartan Potassium 25 Mg Tablet) 25 mg PO MOWEFR@1600 [facility]; Protocol Losartan Potassium (Losartan Potassium 25 Mg Tablet) 25 mg PO SUTUTHSA@0900 [facility]; Protocol Last Admin: 04/07/24 08:26 Dose: 25 mg Documented By: THUAN Magnesium Hydroxide (Milk Of Magnesia 30 Ml Oral.Susp) 30 ml PO DAILY PRN PRN Reason: Constipation Melatonin (Melatonin 3 Mg Tablet) 6 mg PO BEDTIME PRN PRN Reason: Insomnia Non-Formulary Medication (Sucroferric Oxyhydroxide [Velphoro]) 500 mg PO TID [facility] Omeprazole (Omeprazole 20 Mg Capsule.Dr) 20 mg PO DAILY@0630 [facility] Last Admin: 04/08/24 06:30 Dose: 20 mg Documented By: CARLOS Ondansetron HCl (Ondansetron Hcl 4 Mg/2 Ml Vial) 4 mg IVPUSH Q8H PRN PRN Reason: Nausea and Vomiting Oxycodone HCl (Oxycodone Hcl Immed Release 5 Mg Tablet) 5 mg PO Q4H PRN PRN Reason: Pain, Severe (Pain Scale 7-10) Last Admin: 04/08/24 06:39 Dose: 5 mg Documented By: CARLOS Pharmacy Consult (Consult Rx Vancomycin Dosing) 1 each MISCELLANE DAILY PRN PRN Reason: Consult order Polyethylene Glycol (Polyethylene Glycol 3350 17 Gm Powd.Pack) 17 gm PO DAILY PRN PRN Reason: Constipation Pregabalin (Pregabalin 75 Mg Capsule) 75 mg PO MOWEFR@1600 [facility] Pregabalin (Pregabalin 75 Mg Capsule) 75 mg PO SUTUTHSA@09,15,21 [facility] Last Admin: 04/07/24 20:13 Dose: 75 mg Documented By: SERA Senna (Sennosides 8.6 Mg Tablet) 8.6 mg PO DAILY PRN PRN Reason: Constipation Sodium Chloride (0.9 % Sodium Chloride Flush 3 Ml Syringe) 3 ml IVFLUSH QSHIFT [facility] Last Admin: 04/08/24 08:10 Dose: 3 ml Documented By: RICCIAV Labs 04/08/24 05:51 04/05/24 11:14 Labs: Laboratory Results - last 24 hr 04/07/24 04/07/24 04/07/24 11:37 16:50 19:46 MCV MCH MCHC RDW Plt Count MPV Immature Gran % (Auto) Neut % (Auto) Lymph % (Auto) [place] % (Auto) Eos % (Auto) Baso % (Auto) Lymph # (Auto) [place] # (Auto) Eos # (Auto) Baso # (Auto) Abs Immat Gran (auto) Absolute Neuts (auto) Absolute Nucleated RBC Nucleated RBC % (auto) POC Glucose 132 H 142 H 224 H Hold Green Top 04/08/24 04/08/24 04/08/24 05:51 07:17 10:57 MCV 72.0 L MCH 22.8 L MCHC 31.6 RDW 15.9 Plt Count 362 MPV 11.8 Immature Gran % (Auto) 1.3 H Neut % (Auto) 85.6 H Lymph % (Auto) 5.5 L [place] % (Auto) 5.2 Eos % (Auto) 2.2 Baso % (Auto) 0.2 Lymph # (Auto) 1.1 L [place] # (Auto) 1.0 Eos # (Auto) 0.4 Baso # (Auto) 0.1 Abs Immat Gran (auto) 0.27 H Absolute Neuts (auto) 17.1 H Absolute Nucleated RBC 0.000 Nucleated RBC % (auto) 0.0 POC Glucose 122 H 145 H Hold Green Top See Note Microbiology Microbiology Results: Microbiology 04/05/24 12:38 Blood Culture - Preliminary Blood - Venous No growth after 48 hours. 04/05/24 12:50 Blood Culture - Preliminary Blood - Venous No growth after 48 hours. Assessment and Plan (1) Cellulitis of right foot: Status: Acute (2) ESRD on dialysis: Status: Chronic (3) ESRD (end stage renal disease): Status: Acute (4) Type 2 diabetes mellitus: Status: Chronic Plan 68-year-old Hebrew-speaking male with a PMH significant for?ESRD on HD M/W/F last dialyzed earlier today, insulin-dependent type 2 diabetes, peripheral vascular disease, HFrEF (EF35%), HTN, HLD, chronically on 2L home O2, GERD, and ROBERT on CPAP with recent ampuation and here with post amputation complications of open,draning and likely infected woud given high WBC, and elevated ESR, he doesn't meet sepsis critieria Right TMA site wound, concern for infection and likely failed ampuation, WBC 27-->22-->20 continue Vanco and zosyn 04/05/24 Vascular surgery: OR for debridment 04/09/24, possible he will need amputation local wound care consider iD consult oxycodone for pain 4-6, and morphine 7-10 Hypertension, BPs variable, possible pain related continue home meds (hydralazine, losartan, coreg, lasix) ESRD on HD M/W/F Last dialyzed earlier 04/05/24 Nephro consult Insulin-dependent type 2 diabetes Sliding-scale insulin, Lantus at reduce dose of 10 at hs, FBS 114 Diabetic diet HLD/PAD Continue aspirin, statin Gout Continue allopurinol GERD PPI Full Code DVT Prophylaxis: Heparin Pt will require a hospitalization of at least two nights for treatment of?right TMA site failed amputation, infection and need for IV Abx and likely surgical intervention Quality Stroke Does the patient have a stroke diagnosis?: No VTE Prior VTE?: No VTE Risk Level:: Medical - moderate - high VTE Device Contraindication: Treatment Not Indicated VTE Drug Contraindication: N/A - Med Ordered
[2024-04-08 12:09] LABS: Anion Gap 24 (12-20); Carbon Dioxide 23 mmol/L (22-29); Chloride 96 mmol/L (96-108); Potassium 5.7 mmol/L (3.3-5.1); Sodium 137 mmol/L (135-145)
--- NOTE | 2024-04-08 12:21 | HO.VASCPN ---
Subjective Subjective Date of Service: 04/08/24 Interval history: Beau is doing a little better. He endorses pain on the top of the TMA site and towards the medial ankle. He denies any pain in the open incision area. He is eating and drinking well and getting dialyzed M/W/F. He has no new concerns today other than what will happen with his foot. Physical Exam Vital Signs: Vital Signs: Last Vital Signs Temp 99.2 F 04/08/24 07:37 Pulse 80 04/08/24 08:19 Resp 18 04/08/24 08:19 BP 170/90 H 04/08/24 07:37 Pulse Ox 91 L 04/08/24 07:37 O2 Del Method Room Air 04/08/24 07:37 O2 Flow Rate 2 04/05/24 14:35 Oxygen Flow Rate 2 04/05/24 10:37 BMI result Body Mass Index 28.0 Const: General: comfortable and no acute distress Orientation/consciousness: patient oriented x3 HEENT: Ears: hearing grossly normal bilaterally Resp: Effort & Inspection: normal respiratory effort and able to speak in complete sentences Auscultation: clear to auscultation bilaterally Cardio: Rate: regular rate Rhythm: regular rhythm Heart sounds: S1 normal heart sound present and S2 normal heart sound present Bruits: no abdominal aortic bruits, no carotid bruits, no femoral bruits and no renal bruits GI: Palpation (GI): No Abdominal aortic bruit present Neuro: General: patient oriented x3 Cranial nerves: Yes CN's II-XII intact bilaterally Extrem: Other: Right TMA site: serosangenous drainage noted out of the right lateral aspect of the site. Dry eschar noted throughout the incision site. Painful to the top part of the TMA as well as the plantar aspect. Progress Note: A&P Assessment and plan (1) Status post transmetatarsal amputation of right foot: Status: Acute Assessment and Plan: Beau continues on IV abx for an infected TMA site. He has been getting dressing changes daily. There is a serosangenous discharge noted from the lateral aspect of the TMA site. We utilized a official court interpreter to discuss with Beau that we will like to take him to the OR tomorrow for a debridement of the TMA site in hopes of getting it to heal. We discussed that he will be NPO tonight in hopes of getting him into the OR tomorrow. He is due for dialysis later this afternoon as well. We discussed briefly that if we are not able to get this site to heal up then the next course of action would be a BKA, but we are going to work to get this site healed. We will continue to monitor. If there are any questions or concerns, please do not hesitate to reach out to us. Time Spent With Patient Time: Total time managing care of this patient today ____ minutes. Procedures Date of Service Date of Service: 04/08/24 Quality Stroke Does the patient have a stroke diagnosis?: No VTE Prior VTE?: No VTE Risk Level:: Medical - moderate - high VTE Device Contraindication: Treatment Not Indicated VTE Drug Contraindication: N/A - Med Ordered
[2024-04-08] MEDS: Morphine Sulfate 2 MG/ML CARTRIDGE IVPUSH ×2 (12:30→18:30)
--- NOTE | 2024-04-08 15:56 | MHC.CM.PN ---
EMR reviewed and per MD rounds, pt is not medically cleared for discharge due to management of infected right TMA site/failed amputation with debridement in OR pending for tomorrow.
[2024-04-08 16:25] LABS: Glucose, Whole Blood 158 mg/dL (60-115)
[2024-04-08] MEDS: Atorvastatin Calcium 40 MG TABLET PO (17:47)
[2024-04-08] MEDS: Epoetin Alfa-epbx 10,000 UNIT/ML VIAL 10000 UNIT SUBCUT (17:47)
[2024-04-08] MEDS: Aspirin Enteric Coated 81 MG TABLET.DR PO (17:50)
[2024-04-08] MEDS: allopurinoL 100 MG TABLET PO (17:50)
[2024-04-08] MEDS: Pregabalin 75 MG CAPSULE PO (17:51)
[2024-04-08 17:54] LABS: Glucose, Whole Blood 145 mg/dL (60-115)
[2024-04-08] MEDS: Furosemide 40 MG TABLET 80 MG PO (17:58)
[2024-04-08] MEDS: Losartan Potassium 25 MG TABLET PO (17:59)
[2024-04-08] MEDS: hydrALAZINE HCl 25 MG TABLET PO (17:59)
[2024-04-08 19:33] LABS: Vancomycin Random 15.8 mcg/mL (15-20)
[2024-04-08 19:34] LABS: Creatinine Clr Calc Pharmacy 13.9; Estimated Glomerular Filt Rate 12
--- NOTE | 2024-04-08 19:37 | HE.PHANOTE ---
RE: Lisa CARSON pt, trough returned at 1830. Dose held on 04/08, next trough 04/10 @ 1830.
[2024-04-08 20:53] LABS: Glucose, Whole Blood 189 mg/dL (60-115)
[2024-04-08] MEDS: Insulin Glargine,Hum.rec.anlog 100 UNIT/ML 10 ML VIAL 10 UNIT SUBCUT (22:33)
[2024-04-08] MEDS: Doxazosin Mesylate 2 MG TABLET 4 MG PO (22:33)
[2024-04-08] MEDS: Insulin Lispro 100 UNIT/ML 3 ML VIAL SUBCUT (22:33)
[2024-04-08] MEDS: HYDROmorphone HCl 1 MG/ML SYRINGE 0.5 MG IVPUSH (23:57)
[2024-04-09] VITALS (9 sets, daily range): BP systolic 137–189; BP diastolic 55–88; PULSE 67–99; RESP 14–20; TEMP 36.4–37.6; O2SAT 89–100
[2024-04-09] MEDS: Piperacillin Sodium/Tazobactam 2.25 GM in 0.9 % Sodium Chloride 50 ML IV ×3 (05:10→21:33)
[2024-04-09] MEDS: Omeprazole 20 MG CAPSULE.DR PO (05:10)
[2024-04-09 07:02] LABS: Hematocrit 27.6 % (42.0-52.0); Hemoglobin 8.6 g/dl (14.0-18.0); Mean Corpuscular HGB Conc 31.2 g/dl (31.0-36.0); Mean Corpuscular Hemoglobin 22.8 pg (27.0-33.0); Mean Corpuscular Volume 73.2 fL (80.0-98.0); Mean Platelet Volume 12.4 fL (9.4-12.4); Platelet Count 362 X10*3/uL (160-400); Red Blood Count 3.77 X10*6/uL (4.60-5.80); White Blood Count 18.3 X10*3/uL (4.8-10.8)
[2024-04-09 07:08] LABS: Glucose, Whole Blood 173 mg/dL (60-115)
[2024-04-09] MEDS: Fluticasone/Umeclidinium/Vilanterol 100/62.5/25 BLST.W.DEV 1 PUFF INHALE (07:31)
[2024-04-09] MEDS: Furosemide 40 MG TABLET 80 MG PO (08:30)
[2024-04-09] MEDS: hydrALAZINE HCl 25 MG TABLET PO ×3 (08:30→21:34)
[2024-04-09] MEDS: Pregabalin 75 MG CAPSULE PO ×3 (08:31→21:34)
[2024-04-09] MEDS: Aspirin Enteric Coated 81 MG TABLET.DR PO (08:31)
[2024-04-09] MEDS: Atorvastatin Calcium 40 MG TABLET PO (08:31)
[2024-04-09] MEDS: carvediloL 6.25 MG TABLET PO ×2 (08:31→21:01)
[2024-04-09] MEDS: 0.9 % Sodium Chloride Flush 3 ML SYRINGE IVFLUSH ×3 (08:31→21:35)
[2024-04-09] MEDS: Losartan Potassium 25 MG TABLET PO (08:31)
[2024-04-09] MEDS: Morphine Sulfate 2 MG/ML CARTRIDGE IVPUSH (08:32)
--- NOTE | 2024-04-09 09:39 | HO.VASCPN ---
Subjective Subjective Date of Service: 04/09/24 Interval history: Beau is doing ok this morning. He is endorsing more pain this morning, on the top of the TMA site as well as the plantar aspect. He is now endorsing pain towards his heel and up the back of his calf, midway. He is eating and drinking well and had dialysis yesterday. Physical Exam Vital Signs: Vital Signs: Last Vital Signs Temp 97.9 F 04/09/24 07:03 Pulse 77 04/09/24 07:34 Resp 18 04/09/24 07:34 BP 140/82 H 04/09/24 07:03 Pulse Ox 100 04/09/24 07:03 O2 Del Method Nasal Cannula 04/09/24 07:03 O2 Flow Rate 2 04/09/24 07:03 Oxygen Flow Rate 2 04/05/24 10:37 BMI result Body Mass Index 28.0 Const: General: comfortable and no acute distress Orientation/consciousness: patient oriented x3 HEENT: Ears: hearing grossly normal bilaterally Resp: Effort & Inspection: normal respiratory effort and able to speak in complete sentences Auscultation: clear to auscultation bilaterally Cardio: Rate: regular rate Rhythm: regular rhythm Heart sounds: S1 normal heart sound present and S2 normal heart sound present Bruits: no abdominal aortic bruits, no carotid bruits, no femoral bruits and no renal bruits GI: Palpation (GI): No Abdominal aortic bruit present Neuro: General: patient oriented x3 Cranial nerves: Yes CN's II-XII intact bilaterally Extrem: Other: Right TMA site: wrapped, dressing not taken down. Tender to palpation on the plantar aspect as well as the back of the calf midway. No erythema or bruising noted. Progress Note: A&P Assessment and plan (1) Peripheral arterial disease: Status: Acute Assessment and Plan: Beau remains stable. We will be taking him into the OR later today for debridement of the right TMA site. He endorses increased pain this morning in the TMA site as well as the back of his right calf. I discussed with him that we will likely be taking him this afternoon to the OR. We will continue to monitor. If there are any questions or concerns, please do not hesitate to reach out. Time Spent With Patient Time: Total time managing care of this patient today ____ minutes. Procedures Date of Service Date of Service: 04/09/24 Quality Stroke Does the patient have a stroke diagnosis?: No VTE Prior VTE?: No VTE Risk Level:: Medical - moderate - high VTE Device Contraindication: Treatment Not Indicated VTE Drug Contraindication: N/A - Med Ordered
--- NOTE | 2024-04-09 09:43 | P.PNNP_ITS ---
Subjective Subjective Date of Service: 04/09/24 Interval history: Events noted Physical Exam 2 Vital Signs: Vital Signs: Last Vital Signs Temp 97.9 F 04/09/24 07:03 Pulse 77 04/09/24 07:34 Resp 18 04/09/24 07:34 BP 140/82 H 04/09/24 07:03 Pulse Ox 100 04/09/24 07:03 O2 Del Method Nasal Cannula 04/09/24 07:03 O2 Flow Rate 2 04/09/24 07:03 Oxygen Flow Rate 2 04/05/24 10:37 BMI result Body Mass Index 28.0 Const: Other: General: AO X 3, no acute distress Resp: CTA bilateral CVS: S1,S2,RRR GI: +BS, NT, no distention Skin: Neuro: motor grossly intact Psych: appropriate affect Objective Data Labs 04/09/24 06:34 04/08/24 18:59 Labs: Laboratory Results - last 24 hr 04/08/24 04/08/24 04/08/24 05:51 10:57 16:21 WBC RBC Hgb Hct MCV MCH MCHC RDW Plt Count MPV Absolute Nucleated RBC Nucleated RBC % (auto) Sodium 137 Potassium 5.7 H D Chloride 96 Carbon Dioxide 23 Anion Gap 24 H Creatinine Estim Creat Clear Calc Estimated GFR POC Glucose 145 H 158 H Random Vancomycin 04/08/24 04/08/24 04/08/24 17:51 18:59 20:04 WBC RBC Hgb Hct MCV MCH MCHC RDW Plt Count MPV Absolute Nucleated RBC Nucleated RBC % (auto) Sodium Potassium Chloride Carbon Dioxide Anion Gap Creatinine 4.72 H* Estim Creat Clear Calc 13.9 Estimated GFR 12 POC Glucose 145 H 189 H Random Vancomycin 15.8 04/09/24 04/09/24 06:34 07:01 WBC 18.3 H RBC 3.77 L Hgb 8.6 L Hct 27.6 L MCV 73.2 L MCH 22.8 L MCHC 31.2 RDW 16.0 Plt Count 362 MPV 12.4 Absolute Nucleated RBC 0.000 Nucleated RBC % (auto) 0.0 Sodium Potassium Chloride Carbon Dioxide Anion Gap Creatinine Estim Creat Clear Calc Estimated GFR POC Glucose 173 H Random Vancomycin Microbiology Microbiology Results: Microbiology 04/05/24 12:38 Blood - Venous Blood Culture - Preliminary No growth after 48 hours. 04/05/24 12:50 Blood - Venous Blood Culture - Preliminary No growth after 48 hours. Procedures Date of Service Date of Service: 04/09/24 Assessment & Plan Assessment and plan (1) Hypertension: Status: Acute (2) ESRD on dialysis: Status: Chronic Plan HD 3x week Increase time to 4 hr due to asterexis Optimize HCT Avoid hypotension Added Epogen for Anemia concur with other medical management Time Spent With Patient Time: Total time managing care of this patient today ____ minutes. Progress Note: Quality Stroke Does the patient have a stroke diagnosis?: No
[2024-04-09 13:09] LABS: Glucose, Whole Blood 142 mg/dL (60-115)
[2024-04-09 13:34] LABS: Base Excess Bedside Calculated 4 mmol/L (-3-3); Glucose, i-STAT 134 mg/dL (60-115); HCO3 Bedside Calculated 29 mmol/L (22-26); Hematocrit Bedside 29 %PCV (42-52); Hemoglobin Bedside 9.9 g/dL (14.0-18.0); Potassium Bedside 4.7 mmol/L (3.3-5.1); SO2 Bedside Calculated 91 %; Sodium Bedside 136 mmol/L (135-145); TCO2 Bedside 30 mmol/L (24-29); pCO2 Bedside 47 mmhg (35-48); pO2 Bedside 61 mmhg (83-108)
--- NOTE | 2024-04-09 14:15 | MHC.SHP ---
Pre-Procedural Eval Section A - 24 Hr Update-Section A only Date of Service: 04/09/24 The patient is an INPATIENT: Yes Changes since office visit: Yes Patient answered all questions The patient has been examined within 24 hours of the surgical procedure. The History & Physical has been completed within 30 days and I have reviewed it.: Yes Section B - Complete if H&P > 30 days Chief Complaint: Surgical wound infection Allergies: Allergies Allergy/AdvReac Type Severity Reaction Status Date / Time Iodinated Contrast Media Allergy Severe Facial Verified 04/09/24 13:05 [Contrast Dye] Swelling Plan I have reviewed the history and physical and performed a pertinent physical examination on my patient. No changes have occurred unless specified. Time Spent With Patient Time: Total time managing care of this patient today ____ minutes.
--- NOTE | 2024-04-09 15:19 | P.OP_ITS ---
Operative Note Operative Note Date of Service: 04/09/24 Narrative: Operative note by [facility] Preoperative diagnosis: 1.Nonhealing right transmetatarsal amputation 2. Diabetic foot ulcer Postoperative diagnosis: Same Procedure: Right foot excisional debridement to bone Surgeon:Baltazar Cannon M.D. Manager Creative Services: Amarilis Mcdaniels. [place]LA[facility] Anesthesia: Local with sedation Specimens: 1 culture Drains: None Estimated blood loss: Minimal Indications: Complex 68 diabetic gentleman who had previously undergone right transmetatarsal amputation. It was poorly healing and there was necrotic tissue he now presents for excisional debridement. The patient has signed the informed consent after reviewing risks, complications, benefits, and alternatives previously discussed with the patient. The patient was given the opportunity to ask any additional questions or voice any concerns. All questions were answered to the patient's satisfaction. Procedure in detail: Patient was brought to the operating room prior to which a time-out was called for patient identification site verification. Right foot was prepped and draped in the standard surgical fashion. We performed excisional debridement using a 15 blade pickups and Metzenbaum scissors. We removed this entire ellipse of dry necrotic eschar. We did an excisional debridement down into bone. We removed the poor granulation tissue bed. This was excised in its entirety. We made an ellipse 12 cm x 6 cm x 0.3 cm. Once this was done we excised that tissue and cleared it out. We had to excise down into bone. After this it was thoroughly irrigated out deep cultures were taken prior to irrigation once this was done we tried to reapproximate the skin edges with a 2-0 nylon in a mattress fashion. Xeroform and a sterile dressing were applied. At the end the case sponge, needle, instrument counts were correct. Patient brought to recovery with stable vitals. This note is constructed using voice recognition software. While every effort has been made to ensure accuracy, cattle knocker errors may have been included. Thank you for allowing me to participate in the care of your patient. Yours sincerely, Baltazar Cannon MD, FACS, R.P.V.I.
[2024-04-09] MEDS: HYDROmorphone HCl 0.5 MG/0.5 ML SYRINGE IVPUSH (15:38)
--- NOTE | 2024-04-09 15:48 | HO.PM.IMPN ---
Subjective Subjective Date of Service: 04/09/24 Interval History: right tma pain Review of Systems pain seems similar no fevers Physical Exam Vital Signs: Vital Signs: Last Vital Signs Temp 97.8 F 04/09/24 15:40 Pulse 73 04/09/24 15:40 Resp 18 04/09/24 15:40 BP 164/61 H 04/09/24 15:40 Pulse Ox 95 04/09/24 15:40 O2 Del Method Nasal Cannula 04/09/24 15:40 O2 Flow Rate 2 04/09/24 15:40 Oxygen Flow Rate 2 04/05/24 10:37 BMI result Body Mass Index 28.0 Comfortable Neck supple no JVD. Lungs entry equal no rales. Heart S1-S2 heard no gallop or rub. Abdomen soft nontender. skin:see earlier pic Neuro alert awake oriented. No asterixis. Extremities no edema. Objective Data Active Medications Acetaminophen (Acetaminophen 325 Mg Tablet) 650 mg PO Q6H PRN PRN Reason: Pain, Mild 1-3,fever,headache Last Admin: 04/07/24 19:56 Dose: 650 mg Documented By: SERA Al Hydroxide/Mg Hydroxide (Magnesium Hydrox/Alum Hydrox 30 Ml Oral.Susp) 30 ml PO Q4H PRN PRN Reason: Heartburn Albuterol Sulfate (Albuterol Sulfate 90 Mcg 8 Gm Inhaler) 2 puff INHALE Q4H PRN PRN Reason: Shortness Of Breath Albuterol/Ipratropium (Albuterol/Iprat 2.5/0.5mg 3 Ml Ampul.Neb) 3 ml INHALE QID PRN PRN Reason: Wheezing Allopurinol (Allopurinol 100 Mg Tablet) 100 mg PO MOWEFR@1600 [facility] Last Admin: 04/08/24 17:50 Dose: 100 mg Documented By: TUCKER Aspirin (Aspirin Enteric Coated 81 Mg Tablet.) 81 mg PO MOWEFR@1600 [facility] Last Admin: 04/08/24 17:50 Dose: 81 mg Documented By: TUCKER Aspirin (Aspirin Enteric Coated 81 Mg Tablet.) 81 mg PO SUTUTHSA@09 [facility] Last Admin: 04/09/24 08:31 Dose: 81 mg Documented By: DAVINA Atorvastatin Calcium (Atorvastatin Calcium 40 Mg Tablet) 40 mg PO MOWEFR@1600 [facility] Last Admin: 04/08/24 17:47 Dose: 40 mg Documented By: TUCKER Atorvastatin Calcium (Atorvastatin Calcium 40 Mg Tablet) 40 mg PO SUTUTHSA@0900 [facility] Last Admin: 04/09/24 08:31 Dose: 40 mg Documented By: DAVINA Bisacodyl (Bisacodyl 10 Mg Supp.Rect) 10 mg [place] DAILY PRN PRN Reason: Constipation Calcium Carbonate (Calcium Carbonate 750 Mg Tab.Chew) 750 mg PO Q4H PRN PRN Reason: Heartburn Carvedilol (Carvedilol 6.25 Mg Tablet) 6.25 mg PO BID [facility]; Protocol Last Admin: 04/09/24 08:31 Dose: 6.25 mg Documented By: DAVINA Dextrose (Dextrose 50 % 25 Gm/50 Ml Syringe) 25 gm IVPUSH Q15M PRN; Protocol PRN Reason: per Hypoglycemia Standing Ord. Doxazosin Mesylate (Doxazosin Mesylate 2 Mg Tablet) 4 mg PO BEDTIME [facility]; Protocol Last Admin: 04/08/24 22:33 Dose: 4 mg Documented By: EVY Epoetin Keegan-epbx (Epoetin Keegan-Epbx 10,000 Unit/Ml Vial) 10,000 unit SUBCUT MoWeFr@1645 [facility] Last Admin: 04/08/24 17:47 Dose: 10,000 unit Documented By: TUCKER Fluticasone Propionate (Fluticasone Propionate Nasal 16 Gm [place]) 1 spray NOSTRIL-B BID [facility] Last Admin: 04/09/24 08:36 Dose: Not Given Documented By: DAVINA Non-Admin Reason: Patient Refused Fluticasone/Umeclidinium/Vilanterol (Fluticasone/Umeclidinium/Vilanterol 100/62.5/25 Blst.W.Dev) 1 puff INHALE RDAILY [facility] Last Admin: 04/09/24 07:31 Dose: 1 puff Documented By: EVENS Furosemide (Furosemide 40 Mg Tablet) 80 mg PO MOWEFR@1600 [facility]; Protocol Last Admin: 04/08/24 17:58 Dose: 80 mg Documented By: TUCKER Comments: Furosemide (Furosemide 40 Mg Tablet) 80 mg PO SUTUTHSA@0900 [facility]; Protocol Last Admin: 04/09/24 08:30 Dose: 80 mg Documented By: DAVINA Glucose (Glucose Gel 15 Gm Gel..Gram.) 15 gm PO Q15M PRN; Protocol PRN Reason: per Hypoglycemia Standing Ord. Heparin Sodium (Porcine) (Heparin Sodium,Porcine 5,000 Unit/Ml Vial) 5,000 unit SUBCUT BID [facility] Last Admin: 04/09/24 07:43 Dose: Not Given Documented By: DAVINA Non-Admin Reason: procedure scheduled Hydralazine HCl (Hydralazine Hcl 25 Mg Tablet) 25 mg PO MOWEFR@1600 [facility]; Protocol Last Admin: 04/08/24 17:59 Dose: 25 mg Documented By: TUCKER Hydralazine HCl (Hydralazine Hcl 25 Mg Tablet) 25 mg PO SUTUTHSA@09,15,21 [facility]; Protocol Last Admin: 04/09/24 15:43 Dose: 25 mg Documented By: DAVINA Hydromorphone HCl (Hydromorphone Hcl 0.5 Mg/0.5 Ml Syringe) 0.5 mg IVPUSH Q4H PRN; Protocol PRN Reason: Pain, Severe (Pain Scale 7-10) Last Admin: 04/09/24 15:38 Dose: 0.5 mg Documented By: DAVINA Piperacillin Sod/Tazobactam (Sod 2.25 gm/ Sodium Chloride) 50 mls @ 100 mls/hr IV Q8H [facility] Last Infusion: 04/09/24 15:45 Dose: Infused Documented By: DAVINA Vancomycin HCl 500 mg/ Sodium (Chloride) 110 mls @ 110 mls/hr IV ONCE ONE Stop: 04/05/24 15:29 Insulin Glargine (Insulin Glargine,Hum.Rec.Anlog 100 Unit/Ml 10 Ml Vial) 10 unit SUBCUT BEDTIME [facility] Last Admin: 04/08/24 22:33 Dose: 10 unit Documented By: EVY Insulin Human Lispro (Insulin Lispro 100 Unit/Ml 3 Ml Vial) 0 unit SUBCUT QIDACHS [facility]; Protocol Last Admin: 04/09/24 11:19 Dose: Not Given Documented By: DAVINA Non-Admin Reason: No Insulin Coverage Losartan Potassium (Losartan Potassium 25 Mg Tablet) 25 mg PO MOWEFR@1600 [facility]; Protocol Last Admin: 04/08/24 17:59 Dose: 25 mg Documented By: TUCKER Losartan Potassium (Losartan Potassium 25 Mg Tablet) 25 mg PO SUTUTHSA@0900 [facility]; Protocol Last Admin: 04/09/24 08:31 Dose: 25 mg Documented By: DAVINA Magnesium Hydroxide (Milk Of Magnesia 30 Ml Oral.Susp) 30 ml PO DAILY PRN PRN Reason: Constipation Melatonin (Melatonin 3 Mg Tablet) 6 mg PO BEDTIME PRN PRN Reason: Insomnia Non-Formulary Medication (Sucroferric Oxyhydroxide [Velphoro]) 500 mg PO TID [facility] Omeprazole (Omeprazole 20 Mg Capsule.Dr) 20 mg PO DAILY@0630 [facility] Last Admin: 04/09/24 05:10 Dose: 20 mg Documented By: EVY Ondansetron HCl (Ondansetron Hcl 4 Mg/2 Ml Vial) 4 mg IVPUSH Q8H PRN PRN Reason: Nausea and Vomiting Oxycodone HCl (Oxycodone Hcl Immed Release 5 Mg Tablet) 5 mg PO Q4H PRN PRN Reason: Pain, Moderate(Pain Scale 4-6) Pharmacy Consult (Consult Rx Vancomycin Dosing) 1 each MISCELLANE DAILY PRN PRN Reason: Consult order Polyethylene Glycol (Polyethylene Glycol 3350 17 Gm Powd.Pack) 17 gm PO DAILY PRN PRN Reason: Constipation Pregabalin (Pregabalin 75 Mg Capsule) 75 mg PO MOWEFR@1600 [facility] Last Admin: 04/08/24 17:51 Dose: 75 mg Documented By: TUCKER Pregabalin (Pregabalin 75 Mg Capsule) 75 mg PO SUTUTHSA@,, [facility] Last Admin: 04/09/24 15:43 Dose: 75 mg Documented By: DAVINA Senna (Sennosides 8.6 Mg Tablet) 8.6 mg PO DAILY PRN PRN Reason: Constipation Sodium Chloride (0.9 % Sodium Chloride Flush 3 Ml Syringe) 3 ml IVFLUSH QSHIFT [facility] Last Admin: 04/09/24 15:45 Dose: 3 ml Documented By: DAVINA Labs 04/09/24 06:34 04/08/24 18:59 Labs: Laboratory Results - last 24 hr 02/03/25 02/03/25 02/03/25 16:21 17:51 18:59 POC Hgb (Calc) POC Hct MCV MCH MCHC RDW Plt Count MPV Absolute Nucleated RBC Nucleated RBC % (auto) POC Std Base Excess POC O2 Sat (Calc) POC ABG pO2 POC ABG Total CO2 POC Capillary pH POC Capillary pCO2 POC Cap HCO3 (Calc) POC Sodium POC Potassium Estim Creat Clear Calc 13.9 Estimated GFR 12 POC Glucose 158 H 145 H Random Vancomycin 15.8 04/08/24 04/09/24 04/09/24 20:04 06:34 07:01 POC Hgb (Calc) POC Hct MCV 73.2 L MCH 22.8 L MCHC 31.2 RDW 16.0 Plt Count 362 MPV 12.4 Absolute Nucleated RBC 0.000 Nucleated RBC % (auto) 0.0 POC Std Base Excess POC O2 Sat (Calc) POC ABG pO2 POC ABG Total CO2 POC Capillary pH POC Capillary pCO2 POC Cap HCO3 (Calc) POC Sodium POC Potassium Estim Creat Clear Calc Estimated GFR POC Glucose 189 H 173 H Random Vancomycin 04/09/24 04/09/24 11:16 13:29 POC Hgb (Calc) 9.9 L POC Hct 29 L MCV MCH MCHC RDW Plt Count MPV Absolute Nucleated RBC Nucleated RBC % (auto) POC Std Base Excess 4 H POC O2 Sat (Calc) 91 POC ABG pO2 61 L POC ABG Total CO2 30 H POC Capillary pH 7.40 POC Capillary pCO2 47 POC Cap HCO3 (Calc) 29 H POC Sodium 136 POC Potassium 4.7 Estim Creat Clear Calc Estimated GFR POC Glucose 142 H 134 H Random Vancomycin Assessment and Plan (1) Cellulitis of right foot: Status: Acute (2) ESRD on dialysis: Status: Chronic (3) ESRD (end stage renal disease): Status: Acute (4) Type 2 diabetes mellitus: Status: Chronic Plan 68-year-old [place]ronesian-speaking male with a PMH significant for?ESRD on HD M/W/F last dialyzed earlier today, insulin-dependent type 2 diabetes, peripheral vascular disease, HFrEF (EF35%), HTN, HLD, chronically on 2L home O2, GERD, and ROBERT on CPAP with recent ampuation and here with post amputation complications of open,draning and likely infected woud given high WBC, and elevated ESR, he doesn't meet sepsis critieria Right TMA site wound, concern for infection and likely failed ampuation, WBC 27-->22-->20 continue Vanco and zosyn 04/05/24 Vascular surgery: OR for debridment 04/09/24, possible he will need amputation local wound care consider iD consult oxycodone for pain 4-6, and morphine 7-10 Hypertension, BPs variable, possible pain related continue home meds (hydralazine, losartan, coreg, lasix) ESRD on HD M/W/F Last dialyzed earlier 04/05/24 Nephro consult Insulin-dependent type 2 diabetes Sliding-scale insulin, Lantus at reduce dose of 10 at hs, FBS 114 Diabetic diet HLD/PAD Continue aspirin, statin Gout Continue allopurinol GERD PPI Full Code DVT Prophylaxis: Heparin Pt will require a hospitalization of at least two nights for treatment of?right TMA site failed amputation, infection and need for IV Abx and likely surgical intervention today Quality Stroke Does the patient have a stroke diagnosis?: No VTE Prior VTE?: No VTE Risk Level:: Medical - moderate - high VTE Device Contraindication: Treatment Not Indicated VTE Drug Contraindication: N/A - Med Ordered
--- NOTE | 2024-04-09 15:59 | HO.ANESPROP2 ---
HPI - Anesthesia Eval Consult details Narrative: 68 M w/ nonhealing foot ulcer PMFSH Active Problems Active Problems: All Active Problems Dehiscence of wound (Acute) Status post transmetatarsal amputation of right foot (Acute) Peripheral arterial disease (Acute) Cellulitis of right foot (Acute) Infection of toe (Acute) Hypertension (Acute) Pleural effusion (Acute) Acute hypokalemia (Acute) Osteomyelitis (Acute) Somatization disorder (Acute) Trapped lung (Acute) Recurrent pleural effusion on right (Chronic) Exudative pleural effusion (Acute) Postop check (Acute) Hyponatremia (Acute) Hyperkalemia (Acute) Dry gangrene (Acute) Chronic combined systolic and diastolic CHF (congestive heart failure) (Chronic) ESRD on dialysis (Chronic) Acute on chronic systolic and diastolic heart failure, NYHA class 3 (Chronic) Hypertension (Chronic) Type 2 diabetes mellitus (Chronic) ESRD (end stage renal disease) (Acute) Past Medical History Medical History Dry gangrene HFrEF (heart failure with reduced ejection fraction) ESRD (end stage renal disease) Chronic combined systolic and diastolic CHF (congestive heart failure) Chronic pericardial effusion Arthritis Asthma Restless leg syndrome Acute on chronic systolic and diastolic heart failure, NYHA class 3 Anemia ESRD (end stage renal disease) Occlusive thrombus Pulmonary edema ROBERT (obstructive sleep apnea) Type 2 diabetes mellitus Hyperlipidemia Hypertension A-V fistula ESRD on dialysis Falling Family History Family History Father No problems noted. Mother No problems noted. Family history of problems with anesthesia: No Surgical History Surgical History (Updated 04/09/24 @ 13:03 by Leigh Ann Lamb RN) History of transmetatarsal amputation of foot History of surgery H/O colonoscopy Recurrent pleural effusion Pleural effusion on right (07/13/23) History of Problems with Anesthesia: No Social History Social History Household Members: Children Household Members Other:: son Housing: Apartment Are you a primary urgent care nurse practitioner to a significant other at home: No Do you presently have visiting nurse or other home services: No Alcohol intake: never Comment: counts correct Patient Tobacco Use Status: Former Tobacco user Tobacco use type: Cigarette Smoked in Last 30 Days: No Second Hand Smoke Exposure: No Use of substances other than those prescribed or required for medical reasons: No Currently Displaying Signs/Symptoms of Drug Intoxication Withdrawal: No Have you been hit, kicked, punched, or otherwise hurt by someone within the past year? If so, by whom?: No Do you feel safe in your current relationship?: No Current Relationship Are you DNR?: No Advance Directives: Yes Advance Directives Information Provided: Yes Advance Directives on File: Yes Advance Directives Date on File: 04/13/23 Do you have a plan to hurt others: No Plan Recently lost weight without trying: No How much weight loss: Not applicable Eating poorly because of decreased appetite: No Nutrition screen score: 0 Nutrition Risks: No Nutritional Risk Poor oral hygiene: Yes (missing teeth throughout) service: No Meds Allergies Allergy/AdvReac Type Severity Reaction Status Date / Time Iodinated Contrast Media Allergy Severe Facial Verified 04/09/24 13:05 [Contrast Dye] Swelling Active Medications: Current Medications Acetaminophen (Acetaminophen 325 Mg Tablet) 650 mg PO Q6H PRN PRN Reason: Pain, Mild 1-3,fever,headache Last Admin: 04/07/24 19:56 Dose: 650 mg Al Hydroxide/Mg Hydroxide (Magnesium Hydrox/Alum Hydrox 30 Ml Oral.Susp) 30 ml PO Q4H PRN PRN Reason: Heartburn Albuterol Sulfate (Albuterol Sulfate 90 Mcg 8 Gm Inhaler) 2 puff INHALE Q4H PRN PRN Reason: Shortness Of Breath Albuterol/Ipratropium (Albuterol/Iprat 2.5/0.5mg 3 Ml Ampul.Neb) 3 ml INHALE QID PRN PRN Reason: Wheezing Allopurinol (Allopurinol 100 Mg Tablet) 100 mg PO MOWEFR@1600 [facility] Last Admin: 04/08/24 17:50 Dose: 100 mg Aspirin (Aspirin Enteric Coated 81 Mg Tablet.) 81 mg PO MOWEFR@1600 [facility] Last Admin: 04/08/24 17:50 Dose: 81 mg Aspirin (Aspirin Enteric Coated 81 Mg Tablet.) 81 mg PO SUTUTHSA@ [facility] Last Admin: 04/09/24 08:31 Dose: 81 mg Atorvastatin Calcium (Atorvastatin Calcium 40 Mg Tablet) 40 mg PO MOWEFR@1599 [facility] Last Admin: 04/08/24 17:47 Dose: 40 mg Atorvastatin Calcium (Atorvastatin Calcium 40 Mg Tablet) 40 mg PO SUTUTHSA@0900 [facility] Last Admin: 04/09/24 08:31 Dose: 40 mg Bisacodyl (Bisacodyl 10 Mg Supp.Rect) 10 mg SC DAILY PRN PRN Reason: Constipation Calcium Carbonate (Calcium Carbonate 750 Mg Tab.Chew) 750 mg PO Q4H PRN PRN Reason: Heartburn Carvedilol (Carvedilol 6.25 Mg Tablet) 6.25 mg PO BID [facility]; Protocol Last Admin: 04/09/24 08:31 Dose: 6.25 mg Dextrose (Dextrose 50 % 25 Gm/50 Ml Syringe) 25 gm IVPUSH Q15M PRN; Protocol PRN Reason: per Hypoglycemia Standing Ord. Doxazosin Mesylate (Doxazosin Mesylate 2 Mg Tablet) 4 mg PO BEDTIME [facility]; Protocol Last Admin: 04/08/24 22:33 Dose: 4 mg Epoetin Keegan-epbx (Epoetin Keegan-Epbx 10,000 Unit/Ml Vial) 10,000 unit SUBCUT MoWeFr@1645 [facility] Last Admin: 04/08/24 17:47 Dose: 10,000 unit Fluticasone Propionate (Fluticasone Propionate Nasal 16 Gm [place]) 1 spray NOSTRIL-B BID [facility] Last Admin: 04/09/24 08:36 Dose: Not Given Fluticasone/Umeclidinium/Vilanterol (Fluticasone/Umeclidinium/Vilanterol 100/62.5/25 Blst.W.Dev) 1 puff INHALE RDAILY [facility] Last Admin: 04/09/24 07:31 Dose: 1 puff Furosemide (Furosemide 40 Mg Tablet) 80 mg PO MOWEFR@1600 [facility]; Protocol Last Admin: 04/08/24 17:58 Dose: 80 mg Furosemide (Furosemide 40 Mg Tablet) 80 mg PO SUTUTHSA@0900 [facility]; Protocol Last Admin: 04/09/24 08:30 Dose: 80 mg Glucose (Glucose Gel 15 Gm Gel..Gram.) 15 gm PO Q15M PRN; Protocol PRN Reason: per Hypoglycemia Standing Ord. Heparin Sodium (Porcine) (Heparin Sodium,Porcine 5,000 Unit/Ml Vial) 5,000 unit SUBCUT BID [facility] Last Admin: 04/09/24 07:43 Dose: Not Given Hydralazine HCl (Hydralazine Hcl 25 Mg Tablet) 25 mg PO MOWEFR@1600 [facility]; Protocol Last Admin: 04/08/24 17:59 Dose: 25 mg Hydralazine HCl (Hydralazine Hcl 25 Mg Tablet) 25 mg PO SUTUTHSA@09,15,21 [facility]; Protocol Last Admin: 04/09/24 15:43 Dose: 25 mg Hydromorphone HCl (Hydromorphone Hcl 0.5 Mg/0.5 Ml Syringe) 0.5 mg IVPUSH Q4H PRN; Protocol PRN Reason: Pain, Severe (Pain Scale 7-10) Last Admin: 04/09/24 15:38 Dose: 0.5 mg Piperacillin Sod/Tazobactam (Sod 2.25 gm/ Sodium Chloride) 50 mls @ 100 mls/hr IV Q8H [facility] Last Infusion: 04/09/24 15:45 Dose: Infused Vancomycin HCl 500 mg/ Sodium (Chloride) 110 mls @ 110 mls/hr IV ONCE ONE Stop: 04/05/24 15:29 Insulin Glargine (Insulin Glargine,Hum.Rec.Anlog 100 Unit/Ml 10 Ml Vial) 10 unit SUBCUT BEDTIME [facility] Last Admin: 04/08/24 22:33 Dose: 10 unit Insulin Human Lispro (Insulin Lispro 100 Unit/Ml 3 Ml Vial) 0 unit SUBCUT QIDACHS [facility]; Protocol Last Admin: 04/09/24 11:19 Dose: Not Given Losartan Potassium (Losartan Potassium 25 Mg Tablet) 25 mg PO MOWEFR@1600 [facility]; Protocol Last Admin: 04/08/24 17:59 Dose: 25 mg Losartan Potassium (Losartan Potassium 25 Mg Tablet) 25 mg PO SUTUTHSA@0900 [facility]; Protocol Last Admin: 04/09/24 08:31 Dose: 25 mg Magnesium Hydroxide (Milk Of Magnesia 30 Ml Oral.Susp) 30 ml PO DAILY PRN PRN Reason: Constipation Melatonin (Melatonin 3 Mg Tablet) 6 mg PO BEDTIME PRN PRN Reason: Insomnia Non-Formulary Medication (Sucroferric Oxyhydroxide [Velphoro]) 500 mg PO TID [facility] Omeprazole (Omeprazole 20 Mg Capsule.Dr) 20 mg PO DAILY@0630 [facility] Last Admin: 04/09/24 05:10 Dose: 20 mg Ondansetron HCl (Ondansetron Hcl 4 Mg/2 Ml Vial) 4 mg IVPUSH Q8H PRN PRN Reason: Nausea and Vomiting Oxycodone HCl (Oxycodone Hcl Immed Release 5 Mg Tablet) 5 mg PO Q4H PRN PRN Reason: Pain, Moderate(Pain Scale 4-6) Pharmacy Consult (Consult Rx Vancomycin Dosing) 1 each MISCELLANE DAILY PRN PRN Reason: Consult order Polyethylene Glycol (Polyethylene Glycol 3350 17 Gm Powd.Pack) 17 gm PO DAILY PRN PRN Reason: Constipation Pregabalin (Pregabalin 75 Mg Capsule) 75 mg PO MOWEFR@1600 [facility] Last Admin: 04/08/24 17:51 Dose: 75 mg Pregabalin (Pregabalin 75 Mg Capsule) 75 mg PO SUTUTHSA@ [facility] Last Admin: 04/09/24 15:43 Dose: 75 mg Senna (Sennosides 8.6 Mg Tablet) 8.6 mg PO DAILY PRN PRN Reason: Constipation Sodium Chloride (0.9 % Sodium Chloride Flush 3 Ml Syringe) 3 ml IVFLUSH QSHIFT [facility] Last Admin: 04/09/24 15:45 Dose: 3 ml Home Medications ?Medication ?Instructions ?Recorded ?Confirmed ?Last Taken ?Type albuterol sulfate 90 mcg/actuation 2 puff inhalation Q4H PRN 04/19/22 04/05/24 03/05/24 History aerosol inhaler Shortness Of Breath allopurinol 100 mg tablet 100 mg PO MOWEFR@1600 04/19/22 04/05/24 03/18/24 History atorvastatin 40 mg tablet 40 mg PO SUTUTHSA@89904/19/22 04/05/24 03/19/24 History doxazosin 4 mg tablet 4 mg PO BEDTIME 04/19/22 04/05/24 03/18/24 History furosemide 80 mg tablet 80 mg PO SUTUTHSA@89904/19/22 04/05/24 03/19/24 History ipratropium 0.5 mg-albuterol 3 mg 3 ml inhalation QID PRN Wheezing 04/19/22 04/05/24 Unknown History (2.5 mg base)/3 mL nebulization soln omeprazole 20 mg capsule,delayed 20 mg PO DAILY@0630 02/04/05/24 03/19/24 History release insulin glargine 100 unit/mL (3 22 unit subcut BEDTIME 04/10/23 04/05/24 03/18/24 History mL) subcutaneous pen (Lantus Solostar U-100 Insulin) insulin lispro 100 unit/mL 1 sliding scale dose subcut TIDAC 04/10/23 04/05/24 03/18/24 History subcutaneous pen aspirin 81 mg tablet,delayed 81 mg PO SUTUTHSA@09 06/20/23 04/05/24 03/19/24 History release pregabalin 75 mg capsule 75 mg PO SUTUTHSA@,,06/20/23 04/05/24 03/19/24 History hydralazine 25 mg tablet 25 mg PO SUTUTHSA@,,01/24/24 04/05/24 03/19/24 History sucroferric oxyhydroxide 500 mg 500 mg PO TID 01/24/24 04/05/24 03/19/24 History chewable tablet (Velphoro) acetaminophen 325 mg tablet 650 mg PO Q4H PRN PAIN/FEVER 04/05/24 04/05/24 Unknown History aspirin 81 mg tablet,delayed 81 mg PO MOWEFR@159904/05/24 04/05/24 Unknown History release atorvastatin 40 mg tablet 40 mg PO MOWEFR@159904/05/24 04/05/24 Unknown History bisacodyl 10 mg rectal suppository 10 mg SC DAILY PRN Constipation 04/05/24 04/05/24 Unknown History (Dulcolax (bisacodyl)) carvedilol 6.25 mg tablet 6.25 mg PO BID 04/05/24 04/05/24 Unknown History cephalexin 500 mg capsule 500 mg PO BID 04/05/24 04/05/24 Unknown History fluticasone fur. 100 mcg-umeclid 1 inh inhalation DAILY 04/05/24 04/05/24 Unknown History 62.5 mcg-vilant 25 mcg inhalat.powder (Trelegy Ellipta) furosemide 80 mg tablet 80 mg PO MOWEFR@159904/05/24 04/05/24 Unknown History hydralazine 25 mg tablet 25 mg PO MOWEFR@159904/05/24 04/05/24 Unknown History losartan 25 mg tablet 25 mg PO MOWEFR@1600 04/05/24 04/05/24 Unknown History losartan 25 mg tablet 25 mg PO SUTUTHSA@0900 04/05/24 04/05/24 Unknown History oxycodone 5 mg tablet 5 mg PO Q6H PRN pain 04/05/24 04/05/24 Unknown History pantoprazole 40 mg tablet,delayed 40 mg PO DAILY 04/05/24 04/05/24 Unknown History release pregabalin 75 mg capsule 75 mg PO MOWEFR@1600 04/05/24 04/05/24 Unknown History sennosides 8.6 mg tablet (senna) 8.6 mg PO DAILY PRN Constipation 04/05/24 04/05/24 Unknown History Exam Height,Weight and Vital Signs: Height 5 ft 4 in Weight 163 lb 5.8 oz Last Vital Signs Temp 97.8 F 04/09/24 15:40 Pulse 73 04/09/24 15:40 Resp 18 04/09/24 15:40 BP 164/61 H 04/09/24 15:40 Pulse Ox 95 04/09/24 15:40 O2 Del Method Nasal Cannula 04/09/24 15:40 O2 Flow Rate 2 04/09/24 15:40 Oxygen Flow Rate 2 04/05/24 10:37 Pertinent Lab Results Pertinent Lab Results: Laboratory Tests 04/05/24 04/05/24 04/05/24 11:14 16:44 20:52 WBC 26.9 H RBC 4.16 L Hgb 9.6 L POC Hgb (Calc) Hct 31.0 L POC Hct MCV 74.5 L MCH 23.1 L MCHC 31.0 RDW 16.4 H Plt Count 291 MPV 10.6 Immature Gran % (Auto) 0.7 H Neut % (Auto) 90.3 H Lymph % (Auto) 3.1 L Garfield % (Auto) 5.3 Eos % (Auto) 0.4 Baso % (Auto) 0.2 Lymph # (Auto) 0.8 L Garfield # (Auto) 1.4 H Eos # (Auto) 0.1 Baso # (Auto) 0.1 Abs Immat Gran (auto) 0.19 H Absolute Neuts (auto) 24.2 H Absolute Nucleated RBC 0.000 Nucleated RBC % (auto) 0.0 Smear Tech's Comments VERIFIED ESR 96 H PT 14.8 H INR 1.3 H POC Std Base Excess POC O2 Sat (Calc) POC ABG pO2 POC ABG Total CO2 POC Capillary pH POC Capillary pCO2 POC Cap HCO3 (Calc) POC Sodium Sodium 142 POC Potassium Potassium 4.1 D Chloride 98 Carbon Dioxide 31 H Anion Gap 17 BUN 24 H Creatinine 3.79 H Estim Creat Clear Calc 17.7 Estimated GFR 16 POC Glucose 155 H 320 H Random Glucose 188 H Lactic Acid 0.8 Calcium 8.8 Magnesium 1.8 Total Bilirubin 0.5 Direct Bilirubin 0.2 AST 52 H ALT 37 Alkaline Phosphatase 274 H C-Reactive Protein 32.53 H Total Protein 8.0 Albumin 3.2 L Hold Green Top Random Vancomycin 04/06/24 04/06/24 04/06/24 06:38 07:37 11:04 WBC 27.6 H RBC 4.15 L Hgb 9.5 L POC Hgb (Calc) Hct 30.4 L POC Hct MCV 73.3 L MCH 22.9 L MCHC 31.3 RDW 16.4 H Plt Count 246 MPV 10.6 Immature Gran % (Auto) 1.9 H Neut % (Auto) 85.5 H Lymph % (Auto) 5.6 L Garfield % (Auto) 6.1 Eos % (Auto) 0.6 Baso % (Auto) 0.3 Lymph # (Auto) 1.6 Garfield # (Auto) 1.7 H Eos # (Auto) 0.2 Baso # (Auto) 0.1 Abs Immat Gran (auto) 0.53 H Absolute Neuts (auto) 23.6 H Absolute Nucleated RBC 0.070 H Nucleated RBC % (auto) 0.3 H Smear Tech's Comments VERIFIED ESR PT INR POC Std Base Excess POC O2 Sat (Calc) POC ABG pO2 POC ABG Total CO2 POC Capillary pH POC Capillary pCO2 POC Cap HCO3 (Calc) POC Sodium Sodium POC Potassium Potassium Chloride Carbon Dioxide Anion Gap BUN Creatinine Estim Creat Clear Calc Estimated GFR POC Glucose 114 198 H Random Glucose Lactic Acid Calcium Magnesium Total Bilirubin Direct Bilirubin AST ALT Alkaline Phosphatase C-Reactive Protein Total Protein Albumin Hold Green Top Random Vancomycin 04/06/24 04/06/24 04/07/24 16:02 20:00 06:18 WBC 22.8 H RBC 3.78 L Hgb 8.8 L POC Hgb (Calc) Hct 27.8 L POC Hct MCV 73.5 L MCH 23.3 L MCHC 31.7 RDW 15.9 Plt Count 296 MPV 10.8 Immature Gran % (Auto) 0.7 H Neut % (Auto) 86.5 H Lymph % (Auto) 5.2 L Garfield % (Auto) 6.1 Eos % (Auto) 1.3 Baso % (Auto) 0.2 Lymph # (Auto) 1.2 Garfield # (Auto) 1.4 H Eos # (Auto) 0.3 Baso # (Auto) 0.1 Abs Immat Gran (auto) 0.17 H Absolute Neuts (auto) 19.8 H Absolute Nucleated RBC 0.000 Nucleated RBC % (auto) 0.0 Smear Tech's Comments ESR PT INR POC Std Base Excess POC O2 Sat (Calc) POC ABG pO2 POC ABG Total CO2 POC Capillary pH POC Capillary pCO2 POC Cap HCO3 (Calc) POC Sodium Sodium POC Potassium Potassium Chloride Carbon Dioxide Anion Gap BUN Creatinine Estim Creat Clear Calc Estimated GFR POC Glucose 276 H 196 H Random Glucose Lactic Acid Calcium Magnesium Total Bilirubin Direct Bilirubin AST ALT Alkaline Phosphatase C-Reactive Protein Total Protein Albumin Hold Green Top Random Vancomycin 04/07/24 04/07/24 04/07/24 07:44 11:37 16:50 WBC RBC Hgb POC Hgb (Calc) Hct POC Hct MCV MCH MCHC RDW Plt Count MPV Immature Gran % (Auto) Neut % (Auto) Lymph % (Auto) Garfield % (Auto) Eos % (Auto) Baso % (Auto) Lymph # (Auto) Garfield # (Auto) Eos # (Auto) Baso # (Auto) Abs Immat Gran (auto) Absolute Neuts (auto) Absolute Nucleated RBC Nucleated RBC % (auto) Smear Tech's Comments ESR PT INR POC Std Base Excess POC O2 Sat (Calc) POC ABG pO2 POC ABG Total CO2 POC Capillary pH POC Capillary pCO2 POC Cap HCO3 (Calc) POC Sodium Sodium POC Potassium Potassium Chloride Carbon Dioxide Anion Gap BUN Creatinine Estim Creat Clear Calc Estimated GFR POC Glucose 271 H 132 H 142 H Random Glucose Lactic Acid Calcium Magnesium Total Bilirubin Direct Bilirubin AST ALT Alkaline Phosphatase C-Reactive Protein Total Protein Albumin Hold Green Top Random Vancomycin 04/07/24 04/08/24 04/08/24 19:46 05:51 07:17 WBC 20.0 H RBC 4.04 L Hgb 9.2 L POC Hgb (Calc) Hct 29.1 L POC Hct MCV 72.0 L MCH 22.8 L MCHC 31.6 RDW 15.9 Plt Count 362 MPV 11.8 Immature Gran % (Auto) 1.3 H Neut % (Auto) 85.6 H Lymph % (Auto) 5.5 L Garfield % (Auto) 5.2 Eos % (Auto) 2.2 Baso % (Auto) 0.2 Lymph # (Auto) 1.1 L Garfield # (Auto) 1.0 Eos # (Auto) 0.4 Baso # (Auto) 0.1 Abs Immat Gran (auto) 0.27 H Absolute Neuts (auto) 17.1 H Absolute Nucleated RBC 0.000 Nucleated RBC % (auto) 0.0 Smear Tech's Comments ESR PT INR POC Std Base Excess POC O2 Sat (Calc) POC ABG pO2 POC ABG Total CO2 POC Capillary pH POC Capillary pCO2 POC Cap HCO3 (Calc) POC Sodium Sodium 137 POC Potassium Potassium 5.7 H D Chloride 96 Carbon Dioxide 23 Anion Gap 24 H BUN Creatinine Estim Creat Clear Calc Estimated GFR POC Glucose 224 H 122 H Random Glucose Lactic Acid Calcium Magnesium Total Bilirubin Direct Bilirubin AST ALT Alkaline Phosphatase C-Reactive Protein Total Protein Albumin Hold Green Top See Note Random Vancomycin 04/08/24 04/08/24 04/08/24 10:57 16:21 17:51 WBC RBC Hgb POC Hgb (Calc) Hct POC Hct MCV MCH MCHC RDW Plt Count MPV Immature Gran % (Auto) Neut % (Auto) Lymph % (Auto) Garfield % (Auto) Eos % (Auto) Baso % (Auto) Lymph # (Auto) Garfield # (Auto) Eos # (Auto) Baso # (Auto) Abs Immat Gran (auto) Absolute Neuts (auto) Absolute Nucleated RBC Nucleated RBC % (auto) Smear Tech's Comments ESR PT INR POC Std Base Excess POC O2 Sat (Calc) POC ABG pO2 POC ABG Total CO2 POC Capillary pH POC Capillary pCO2 POC Cap HCO3 (Calc) POC Sodium Sodium POC Potassium Potassium Chloride Carbon Dioxide Anion Gap BUN Creatinine Estim Creat Clear Calc Estimated GFR POC Glucose 145 H 158 H 145 H Random Glucose Lactic Acid Calcium Magnesium Total Bilirubin Direct Bilirubin AST ALT Alkaline Phosphatase C-Reactive Protein Total Protein Albumin Hold Green Top Random Vancomycin 04/08/24 04/08/24 04/09/24 18:59 20:04 06:34 WBC 18.3 H RBC 3.77 L Hgb 8.6 L POC Hgb (Calc) Hct 27.6 L POC Hct MCV 73.2 L MCH 22.8 L MCHC 31.2 RDW 16.0 Plt Count 362 MPV 12.4 Immature Gran % (Auto) Neut % (Auto) Lymph % (Auto) Garfield % (Auto) Eos % (Auto) Baso % (Auto) Lymph # (Auto) Garfield # (Auto) Eos # (Auto) Baso # (Auto) Abs Immat Gran (auto) Absolute Neuts (auto) Absolute Nucleated RBC 0.000 Nucleated RBC % (auto) 0.0 Smear Tech's Comments ESR PT INR POC Std Base Excess POC O2 Sat (Calc) POC ABG pO2 POC ABG Total CO2 POC Capillary pH POC Capillary pCO2 POC Cap HCO3 (Calc) POC Sodium Sodium POC Potassium Potassium Chloride Carbon Dioxide Anion Gap BUN Creatinine 4.72 H* Estim Creat Clear Calc 13.9 Estimated GFR 12 POC Glucose 189 H Random Glucose Lactic Acid Calcium Magnesium Total Bilirubin Direct Bilirubin AST ALT Alkaline Phosphatase C-Reactive Protein Total Protein Albumin Hold Green Top Random Vancomycin 15.8 04/09/24 04/09/24 04/09/24 07:01 11:16 13:29 WBC RBC Hgb POC Hgb (Calc) 9.9 L Hct POC Hct 29 L MCV MCH MCHC RDW Plt Count MPV Immature Gran % (Auto) Neut % (Auto) Lymph % (Auto) Garfield % (Auto) Eos % (Auto) Baso % (Auto) Lymph # (Auto) Garfield # (Auto) Eos # (Auto) Baso # (Auto) Abs Immat Gran (auto) Absolute Neuts (auto) Absolute Nucleated RBC Nucleated RBC % (auto) Smear Tech's Comments ESR PT INR POC Std Base Excess 4 H POC O2 Sat (Calc) 91 POC ABG pO2 61 L POC ABG Total CO2 30 H POC Capillary pH 7.40 POC Capillary pCO2 47 POC Cap HCO3 (Calc) 29 H POC Sodium 136 Sodium POC Potassium 4.7 Potassium Chloride Carbon Dioxide Anion Gap BUN Creatinine Estim Creat Clear Calc Estimated GFR POC Glucose 173 H 142 H 134 H Random Glucose Lactic Acid Calcium Magnesium Total Bilirubin Direct Bilirubin AST ALT Alkaline Phosphatase C-Reactive Protein Total Protein Albumin Hold Green Top Random Vancomycin Assessment and Plan Assessment Anesthesia Assessment: Anesthesia Plan Discussed and Chart Reviewed Final Anesthetic Review Family History of Problems with Anesthesia: No History of Problems with Anesthesia: No NPO: Yes ASA Class: III Final Preanesthetic Review: No Changes in Pt Med Stat, Meds/Allgs Chart Reviewed, Consent Obtained/Reviewed and Anes Risks/Benef Reviewed Patient Risk: Intermediate Procedure Risk: Low Anesthetic Plan Anesthetic Plan: MAC: Disposition: Inp. Admit - Standard Bed
[2024-04-09 16:24] LABS: Glucose, Whole Blood 158 mg/dL (60-115)
[2024-04-09] MEDS: Insulin Lispro 100 UNIT/ML 3 ML VIAL SUBCUT ×2 (16:41→21:02)
[2024-04-09 20:47] LABS: Glucose, Whole Blood 255 mg/dL (60-115)
[2024-04-09] MEDS: Heparin Sodium,Porcine 5,000 UNIT/ML VIAL 5000 UNIT SUBCUT (21:01)
[2024-04-09] MEDS: Fluticasone Propionate Nasal 16 GM SPRAY 1 SPRAY NOSTRIL-B (21:02)
[2024-04-09] MEDS: Insulin Glargine,Hum.rec.anlog 100 UNIT/ML 10 ML VIAL 10 UNIT SUBCUT (21:02)
[2024-04-09] MEDS: Doxazosin Mesylate 2 MG TABLET 4 MG PO (21:02)
[2024-04-09] MEDS: Milk of Magnesia 30 ML ORAL.SUSP PO (21:34)
[2024-04-10 04:00] VITALS: BP 168/71; PULSE 71; RESP 20; TEMP 37.5; O2SAT 98
[2024-04-10] MEDS: Omeprazole 20 MG CAPSULE.DR PO (05:01)
[2024-04-10] MEDS: Piperacillin Sodium/Tazobactam 2.25 GM in 0.9 % Sodium Chloride 50 ML IV ×3 (05:01→21:38)
[2024-04-10 07:09] VITALS: BP 158/78; PULSE 69; RESP 16; TEMP 37.3; O2SAT 96
[2024-04-10 07:26] LABS: Glucose, Whole Blood 161 mg/dL (60-115)
--- NOTE | 2024-04-10 08:08 | HO.POSTANES ---
Post Anesthesia Evaluation Post Anesthesia Evaluation Date of Service: 04/10/24 Vital Signs: Vital Signs Temp Pulse Resp BP Pulse Ox O2 Del Method O2 Flow Rate 04/10/24 07:09 99.2 F 69 16 158/78 H 96 Nasal Cannula 2 04/10/24 04:00 99.5 F 71 20 168/71 H 98 Nasal Cannula 2 04/09/24 23:30 99.6 F 74 20 155/74 H 97 Nasal Cannula 2 Anesthesia: Monitored Mental Status: Awake Pain Control: Satisfactory Nausea/Vomiting: None Hydration: Adequate Anesthesia-Related Issues: No Anes. Related Issues
[2024-04-10] MEDS: Fluticasone/Umeclidinium/Vilanterol 100/62.5/25 BLST.W.DEV 1 PUFF INHALE (08:19)
[2024-04-10 08:22] VITALS: PULSE 71; RESP 18; O2SAT 96
--- NOTE | 2024-04-10 09:58 | P.PNVS_ITS ---
Subjective Subjective Date of Service: 04/10/24 Interval history: Beau remained stable this morning. He does continue to endorse increased pain in the TMA site, despite debridement in the OR yesterday. His family is experiencing frustrations due to the nonhealing status of the TMA site as well as the pain the patient was continuing to experience. Physical Exam Vital Signs: Vital Signs: Last Vital Signs Temp 99.2 F 04/10/24 07:09 Pulse 71 04/10/24 08:22 Resp 18 04/10/24 08:22 BP 158/78 H 04/10/24 07:09 Pulse Ox 96 04/10/24 07:09 O2 Del Method Nasal Cannula 04/10/24 07:09 O2 Flow Rate 2 04/10/24 07:09 Oxygen Flow Rate 2 04/05/24 10:37 BMI result Body Mass Index 28.0 Const: General: comfortable and no acute distress Orientation/consciousness: patient oriented x3 HEENT: Ears: hearing grossly normal bilaterally Resp: Effort & Inspection: normal respiratory effort and able to speak in complete sentences Auscultation: clear to auscultation bilaterally Cardio: Rate: regular rate Rhythm: regular rhythm Heart sounds: S1 normal heart sound present and S2 normal heart sound present Bruits: no abdominal aortic bruits, no carotid bruits, no femoral bruits and no renal bruits GI: Palpation (GI): No Abdominal aortic bruit present Neuro: General: patient oriented x3 Cranial nerves: Yes CN's II-XII intact bilaterally Extrem: Other: Right TMA site: Flap is dry gangrene/eschar. There was significant drainage on the dressing with moderate bleeding on the lateral aspect of the incision site. Sutures are intact but are not keeping the incision site closed. Dry eschar noted all around the incision site. Progress Note: A&P Assessment and plan (1) Status post transmetatarsal amputation of right foot: Status: Acute Assessment and Plan: Beau is s/p debridement of the right TMA site yesterday. He continues to endorse significant pain at the site. The family is very concerned about the nonhealing nature of the procedures that have been done. We were able to take down the dressing this morning and the flap was gangrenous with the sutures not holding the flap in place. There is increased dry eschar/gangrene around the flap and incision site. There was a significant amount of drainage noted on the dressing and in the incision site. Minimal bleeding on the lateral aspect of the site. We will be taking Beau back to the OR tomorrow for a right BKA. We discus sed this with him and his sons, whom were in agreement to the plan. We dressed the TMA site with Xeroform, 4x4, and Kerlix wrap. We discussed the plan with the hospitalist. We will continue to monitor. If there are any questions or concerns, please do not hesitate to reach out. Time Spent With Patient Time: Total time managing care of this patient today ____ minutes. Procedures Date of Service Date of Service: 04/10/24 Quality Stroke Does the patient have a stroke diagnosis?: No VTE Prior VTE?: No VTE Risk Level:: Medical - moderate - high VTE Device Contraindication: Treatment Not Indicated VTE Drug Contraindication: N/A - Med Ordered
--- NOTE | 2024-04-10 10:21 | MHC.CM.PN ---
Per ROUNDS discussion, Patient is not yet medically cleared for dc (BKA tomorrow); returning to [facility] is the goal and CM will continue to follow.
[2024-04-10] MEDS: carvediloL 6.25 MG TABLET PO ×2 (10:28→21:25)
[2024-04-10] MEDS: HYDROmorphone HCl 1 MG/ML SYRINGE IVPUSH (10:28)
[2024-04-10] MEDS: Heparin Sodium,Porcine 5,000 UNIT/ML VIAL 5000 UNIT SUBCUT ×2 (10:29→21:25)
[2024-04-10] MEDS: 0.9 % Sodium Chloride Flush 3 ML SYRINGE IVFLUSH ×2 (10:29→18:27)
[2024-04-10] MEDS: Fluticasone Propionate Nasal 16 GM SPRAY 1 SPRAY NOSTRIL-B ×2 (10:31→21:39)
[2024-04-10 10:52] LABS: Glucose, Whole Blood 242 mg/dL (60-115)
[2024-04-10] MEDS: Insulin Lispro 100 UNIT/ML 3 ML VIAL SUBCUT ×2 (11:07→21:24)
--- NOTE | 2024-04-10 11:53 | HO.WOUND ---
Wound Consult: Initial 68yr old?male admitted to [facility] on 04/05/24 14:22- See progress notes and H&P for detailed history.? Wound consult follow up for Right TMA site for wound vac evaluation.? Spoke with Dr. Cannon from Vascular Surgery team they are managing incisional wound s/p debridement no topical recommendations needed from inpatient wound care nurse at this time. Appears plan is for further debridemetn in future. Will defer to Vascular Surgery.
--- NOTE | 2024-04-10 13:28 | P.PNNP_ITS ---
Subjective Subjective Date of Service: 04/10/24 Interval history: Events noted; All recent data reviewed Physical Exam 2 Vital Signs: Vital Signs: Last Vital Signs Temp 99.2 F 04/10/24 07:09 Pulse 71 04/10/24 08:22 Resp 18 04/10/24 08:22 BP 158/78 H 04/10/24 07:09 Pulse Ox 96 04/10/24 07:09 O2 Del Method Nasal Cannula 04/10/24 07:09 O2 Flow Rate 2 04/10/24 07:09 Oxygen Flow Rate 2 04/05/24 10:37 BMI result Body Mass Index 28.0 Const: General: no acute distress HEENT: Head: Yes normocephalic Neck: Neck: Yes supple Resp: Auscultation: diminished lung sounds Cardio: Rate: regular rate GI: Palpation (GI): Soft to palpation Neuro: General: moves all extremities Objective Data Labs 04/09/24 06:34 04/08/24 18:59 Labs: Laboratory Results - last 24 hr 04/09/24 04/09/24 04/09/24 13:29 16:19 20:43 POC Hgb (Calc) 9.9 L POC Hct 29 L POC Std Base Excess 4 H POC O2 Sat (Calc) 91 POC ABG pO2 61 L POC ABG Total CO2 30 H POC Capillary pH 7.40 POC Capillary pCO2 47 POC Cap HCO3 (Calc) 29 H POC Sodium 136 POC Potassium 4.7 POC Glucose 134 H 158 H 255 H 04/10/24 04/10/24 07:22 10:49 POC Hgb (Calc) POC Hct POC Std Base Excess POC O2 Sat (Calc) POC ABG pO2 POC ABG Total CO2 POC Capillary pH POC Capillary pCO2 POC Cap HCO3 (Calc) POC Sodium POC Potassium POC Glucose 161 H 242 H Microbiology Microbiology Results: Microbiology 04/09/24 14:48 Foot Right Gram Stain - Final 04/09/24 14:48 Foot Right Routine Culture - Preliminary Culture in progress. 04/05/24 12:38 Blood - Venous Blood Culture - Preliminary No growth after 48 hours. 04/05/24 12:50 Blood - Venous Blood Culture - Preliminary No growth after 48 hours. Procedures Date of Service Date of Service: 04/10/24 Assessment & Plan Assessment and plan (1) ESRD needing dialysis: Status: Acute Plan HD 3x week; Due HD today Renal diet; Epogen for Anemia Concur with rest of medical management Progress Note: Quality Stroke Does the patient have a stroke diagnosis?: No
--- NOTE | 2024-04-10 17:00 | HO.PM.IMPN ---
Subjective Subjective Date of Service: 04/10/24 Interval History: right tma pain Review of Systems pain seems similar no fevers Physical Exam Vital Signs: Vital Signs: Last Vital Signs Temp 99.2 F 04/10/24 07:09 Pulse 71 04/10/24 08:22 Resp 18 04/10/24 08:22 BP 158/78 H 04/10/24 07:09 Pulse Ox 96 04/10/24 07:09 O2 Del Method Nasal Cannula 04/10/24 07:09 O2 Flow Rate 2 04/10/24 07:09 Oxygen Flow Rate 2 04/05/24 10:37 BMI result Body Mass Index 28.0 Comfortable Neck supple no JVD. Lungs entry equal no rales. Heart S1-S2 heard no gallop or rub. Abdomen soft nontender. skin:Right TMA site: Flap is dry gangrene/eschar. There was significant drainage on the dressing with moderate bleeding on the lateral aspect of the incision site. Sutures are intact but are not keeping the incision site closed. Dry eschar noted all around the incision site. Neuro alert awake oriented. No asterixis. Extremities no edema. Objective Data Active Medications Acetaminophen (Acetaminophen 325 Mg Tablet) 650 mg PO Q6H PRN PRN Reason: Pain, Mild 1-3,fever,headache Last Admin: 04/07/24 19:56 Dose: 650 mg Documented By: SERA Al Hydroxide/Mg Hydroxide (Magnesium Hydrox/Alum Hydrox 30 Ml Oral.Susp) 30 ml PO Q4H PRN PRN Reason: Heartburn Albuterol Sulfate (Albuterol Sulfate 90 Mcg 8 Gm Inhaler) 2 puff INHALE Q4H PRN PRN Reason: Shortness Of Breath Albuterol/Ipratropium (Albuterol/Iprat 2.5/0.5mg 3 Ml Ampul.Neb) 3 ml INHALE QID PRN PRN Reason: Wheezing Allopurinol (Allopurinol 100 Mg Tablet) 100 mg PO MOWEFR@1600 [facility] Last Admin: 04/08/24 17:50 Dose: 100 mg Documented By: TUCKER Aspirin (Aspirin Enteric Coated 81 Mg Tablet.) 81 mg PO MOWEFR@1600 [facility] Last Admin: 04/08/24 17:50 Dose: 81 mg Documented By: TUCKER Aspirin (Aspirin Enteric Coated 81 Mg Tablet.) 81 mg PO SUTUTHSA@09 [facility] Last Admin: 04/09/24 08:31 Dose: 81 mg Documented By: DAVINA Atorvastatin Calcium (Atorvastatin Calcium 40 Mg Tablet) 40 mg PO MOWEFR@1600 [facility] Last Admin: 04/08/24 17:47 Dose: 40 mg Documented By: TUCKER Atorvastatin Calcium (Atorvastatin Calcium 40 Mg Tablet) 40 mg PO SUTUTHSA@0900 [facility] Last Admin: 04/09/24 08:31 Dose: 40 mg Documented By: DAVINA Bisacodyl (Bisacodyl 10 Mg Supp.Rect) 10 mg [place] DAILY PRN PRN Reason: Constipation Calcium Carbonate (Calcium Carbonate 750 Mg Tab.Chew) 750 mg PO Q4H PRN PRN Reason: Heartburn Carvedilol (Carvedilol 6.25 Mg Tablet) 6.25 mg PO BID [facility]; Protocol Last Admin: 04/10/24 10:28 Dose: 6.25 mg Documented By: RAY Dextrose (Dextrose 50 % 25 Gm/50 Ml Syringe) 25 gm IVPUSH Q15M PRN; Protocol PRN Reason: per Hypoglycemia Standing Ord. Doxazosin Mesylate (Doxazosin Mesylate 2 Mg Tablet) 4 mg PO BEDTIME [facility]; Protocol Last Admin: 04/09/24 21:02 Dose: 4 mg Documented By: EVY Epoetin Keegan-epbx (Epoetin Keegan-Epbx 10,000 Unit/Ml Vial) 10,000 unit SUBCUT MoWeFr@1645 [facility] Last Admin: 04/08/24 17:47 Dose: 10,000 unit Documented By: TUCKER Fluticasone Propionate (Fluticasone Propionate Nasal 16 Gm [place]) 1 spray NOSTRIL-B BID [facility] Last Admin: 04/10/24 10:31 Dose: 1 spray Documented By: RAY Fluticasone/Umeclidinium/Vilanterol (Fluticasone/Umeclidinium/Vilanterol 100/62.5/25 Blst.W.Dev) 1 puff INHALE RDAILY [facility] Last Admin: 04/10/24 08:19 Dose: 1 puff Documented By: EMELIA Furosemide (Furosemide 40 Mg Tablet) 80 mg PO MOWEFR@1600 [facility]; Protocol Last Admin: 04/08/24 17:58 Dose: 80 mg Documented By: TUCKER Comments: Furosemide (Furosemide 40 Mg Tablet) 80 mg PO SUTUTHSA@0900 [facility]; Protocol Last Admin: 04/09/24 08:30 Dose: 80 mg Documented By: DAVINA Glucose (Glucose Gel 15 Gm Gel..Gram.) 15 gm PO Q15M PRN; Protocol PRN Reason: per Hypoglycemia Standing Ord. Heparin Sodium (Porcine) (Heparin Sodium,Porcine 5,000 Unit/Ml Vial) 5,000 unit SUBCUT BID [facility] Last Admin: 04/10/24 10:29 Dose: 5,000 unit Documented By: RAY Hydralazine HCl (Hydralazine Hcl 25 Mg Tablet) 25 mg PO MOWEFR@1600 [facility]; Protocol Last Admin: 04/08/24 17:59 Dose: 25 mg Documented By: TUCKER Hydralazine HCl (Hydralazine Hcl 25 Mg Tablet) 25 mg PO SUTUTHSA@09,15,21 [facility]; Protocol Last Admin: 04/09/24 21:34 Dose: 25 mg Documented By: EVY Hydromorphone HCl (Hydromorphone Hcl 0.5 Mg/0.5 Ml Syringe) 0.5 mg IVPUSH Q4H PRN; Protocol PRN Reason: Pain, Severe (Pain Scale 7-10) Last Admin: 04/09/24 15:38 Dose: 0.5 mg Piperacillin Sod/Tazobactam (Sod 2.25 gm/ Sodium Chloride) 50 mls @ 100 mls/hr IV Q8H [facility] Last Infusion: 04/10/24 05:43 Dose: Infused Documented By: VEY Vancomycin HCl 500 mg/ Sodium (Chloride) 110 mls @ 110 mls/hr IV ONCE ONE Stop: 04/05/24 15:29 Insulin Glargine (Insulin Glargine,Hum.Rec.Anlog 100 Unit/Ml 10 Ml Vial) 10 unit SUBCUT BEDTIME [facility] Last Admin: 04/09/24 21:02 Dose: 10 unit Documented By: EVY Insulin Human Lispro (Insulin Lispro 100 Unit/Ml 3 Ml Vial) 0 unit SUBCUT QIDACHS [facility]; Protocol Last Admin: 04/10/24 11:07 Dose: 4 unit Documented By: RAY Losartan Potassium (Losartan Potassium 25 Mg Tablet) 25 mg PO MOWEFR@1600 [facility]; Protocol Last Admin: 04/08/24 17:59 Dose: 25 mg Documented By: TUCKER Losartan Potassium (Losartan Potassium 25 Mg Tablet) 25 mg PO SUTUTHSA@0900 [facility]; Protocol Last Admin: 04/09/24 08:31 Dose: 25 mg Documented By: DAVINA Magnesium Hydroxide (Milk Of Magnesia 30 Ml Oral.Susp) 30 ml PO DAILY PRN PRN Reason: Constipation Last Admin: 04/09/24 21:34 Dose: 30 ml Documented By: EVY Melatonin (Melatonin 3 Mg Tablet) 6 mg PO BEDTIME PRN PRN Reason: Insomnia Non-Formulary Medication (Sucroferric Oxyhydroxide [Velphoro]) 500 mg PO TID [facility] Omeprazole (Omeprazole 20 Mg Capsule.Dr) 20 mg PO DAILY@0630 [facility] Last Admin: 04/10/24 05:01 Dose: 20 mg Documented By: EVY Ondansetron HCl (Ondansetron Hcl 4 Mg/2 Ml Vial) 4 mg IVPUSH Q8H PRN PRN Reason: Nausea and Vomiting Oxycodone HCl (Oxycodone Hcl Immed Release 5 Mg Tablet) 5 mg PO Q4H PRN PRN Reason: Pain, Moderate(Pain Scale 4-6) Pharmacy Consult (Consult Rx Vancomycin Dosing) 1 each MISCELLANE DAILY PRN PRN Reason: Consult order Polyethylene Glycol (Polyethylene Glycol 3350 17 Gm Powd.Pack) 17 gm PO DAILY PRN PRN Reason: Constipation Pregabalin (Pregabalin 75 Mg Capsule) 75 mg PO MOWEFR@1600 [facility] Last Admin: 04/08/24 17:51 Dose: 75 mg Documented By: TUCKER Pregabalin (Pregabalin 75 Mg Capsule) 75 mg PO SUTUTHSA@,, [facility] Last Admin: 04/09/24 21:34 Dose: 75 mg Documented By: EVY Senna (Sennosides 8.6 Mg Tablet) 8.6 mg PO DAILY PRN PRN Reason: Constipation Sodium Chloride (0.9 % Sodium Chloride Flush 3 Ml Syringe) 3 ml IVFLUSH QSHIFT [facility] Last Admin: 04/10/24 10:29 Dose: 3 ml Documented By: RAY Labs 04/09/24 06:34 04/08/24 18:59 Labs: Laboratory Results - last 24 hr 04/09/24 04/10/24 04/10/24 20:43 07:22 10:49 POC Glucose 255 H 161 H 242 H Microbiology Microbiology Results: Microbiology 04/05/24 12:38 Blood Culture - Final Blood - Venous No growth after 5 days. 04/05/24 12:50 Blood Culture - Final Blood - Venous No growth after 5 days. 04/09/24 14:48 Gram Stain - Final Foot Right Routine Culture - Preliminary Culture in progress. Assessment and Plan (1) Cellulitis of right foot: Status: Acute (2) ESRD on dialysis: Status: Chronic (3) ESRD (end stage renal disease): Status: Acute (4) Type 2 diabetes mellitus: Status: Chronic Plan 68-year-old Hungarian-speaking male with a PMH significant for?ESRD on HD M/W/F last dialyzed earlier today, insulin-dependent type 2 diabetes, peripheral vascular disease, HFrEF (EF35%), HTN, HLD, chronically on 2L home O2, GERD, and ROBERT on CPAP with recent ampuation and here with post amputation complications of open,draning and likely infected woud given high WBC, and elevated ESR, he doesn't meet sepsis critieria Right TMA site wound, concern for infection and likely failed ampuation, WBC 27-->22-->20 Vascular surgery: OR for debridment 04/09/24, possible he will need amputation increased dry eschar/gangrene around the flap and incision site. plan: will need bka tomorrow oxycodone for pain 4-6, and dilaudid for 7-10,continue Vanco and zosyn 04/05/24. weakness right upper ext: as per family seems from at least 1-2 week duration,somewhat increasing slowly ct head negative plan: neurochecks neurology eval. Hypertension, BPs variable, possible pain related continue home meds (hydralazine, losartan, coreg, lasix) ESRD on HD M/W/F Last dialyzed earlier 04/05/24 Nephro consult Insulin-dependent type 2 diabetes Sliding-scale insulin, Lantus at reduce dose of 10 at hs, FBS 114 Diabetic diet HLD/PAD Continue aspirin, statin Gout Continue allopurinol GERD PPI Full Code DVT Prophylaxis: Heparin ongoing need for hospitalization of at least two nights for treatment of?right TMA site failed amputation, infection and need for IV Abx and likely surgical intervention tomorrow surgery d/w family in detail Quality Stroke Does the patient have a stroke diagnosis?: No VTE Prior VTE?: No VTE Risk Level:: Medical - moderate - high VTE Device Contraindication: Treatment Not Indicated VTE Drug Contraindication: N/A - Med Ordered
[2024-04-10] MEDS: Furosemide 40 MG TABLET 80 MG PO (18:17)
[2024-04-10] MEDS: Atorvastatin Calcium 40 MG TABLET PO (18:17)
[2024-04-10] MEDS: Aspirin Enteric Coated 81 MG TABLET.DR PO (18:17)
[2024-04-10] MEDS: Pregabalin 75 MG CAPSULE PO (18:17)
[2024-04-10] MEDS: Losartan Potassium 25 MG TABLET PO (18:17)
[2024-04-10] MEDS: hydrALAZINE HCl 25 MG TABLET PO (18:18)
[2024-04-10] MEDS: allopurinoL 100 MG TABLET PO (18:18)
[2024-04-10 19:01] LABS: Vancomycin Random 11.3 mcg/mL (15-20)
[2024-04-10] MEDS: vancomycin HCL 500 MG in 0.9 % Sodium Chloride 100 ML 110 MG IV (19:33)
[2024-04-10 20:00] VITALS: BP 154/70; PULSE 61; RESP 16; TEMP 37.4; O2SAT 95
[2024-04-10 21:20] LABS: Glucose, Whole Blood 323 mg/dL (60-115)
[2024-04-10] MEDS: Insulin Glargine,Hum.rec.anlog 100 UNIT/ML 10 ML VIAL 10 UNIT SUBCUT (21:24)
[2024-04-10] MEDS: Doxazosin Mesylate 2 MG TABLET 4 MG PO (21:25)
[2024-04-11] VITALS (15 sets, daily range): BP systolic 118–178; BP diastolic 57–86; PULSE 59–75; RESP 16–20; TEMP 36.2–37.1; O2SAT 90–100
[2024-04-11] MEDS: 0.9 % Sodium Chloride Flush 3 ML SYRINGE IVFLUSH ×2 (00:38→07:39)
[2024-04-11] MEDS: Piperacillin Sodium/Tazobactam 2.25 GM in 0.9 % Sodium Chloride 50 ML IV ×3 (05:20→16:13)
[2024-04-11] MEDS: Omeprazole 20 MG CAPSULE.DR PO (05:21)
[2024-04-11 07:07] LABS: Hematocrit 28.3 % (42.0-52.0); Hemoglobin 8.8 g/dl (14.0-18.0); Mean Corpuscular HGB Conc 31.1 g/dl (31.0-36.0); Mean Corpuscular Hemoglobin 22.9 pg (27.0-33.0); Mean Corpuscular Volume 73.7 fL (80.0-98.0); Mean Platelet Volume 11.3 fL (9.4-12.4); Platelet Count 388 X10*3/uL (160-400); Red Blood Count 3.84 X10*6/uL (4.60-5.80); Red Cell Distribution Width 16.4 % (11.0-16.0); White Blood Count 16.6 X10*3/uL (4.8-10.8)
[2024-04-11 07:25] LABS: Estimated Average Glucose 166 mg/dL; Hemoglobin A1C 138.1973 umol/L; Hemoglobin A1c % 7.4 % (<6.0); Total Hemoglobin (HGBA1C) 2408.0005 umol/L
[2024-04-11 07:34] LABS: Glucose, Whole Blood 317 mg/dL (60-115)
[2024-04-11] MEDS: Losartan Potassium 25 MG TABLET PO ×2 (07:38→08:03)
[2024-04-11] MEDS: carvediloL 6.25 MG TABLET PO ×2 (07:38→21:05)
[2024-04-11] MEDS: Furosemide 40 MG TABLET 80 MG PO ×2 (07:38→07:58)
[2024-04-11] MEDS: Insulin Lispro 100 UNIT/ML 3 ML VIAL SUBCUT ×2 (07:39→21:05)
[2024-04-11] MEDS: HYDROmorphone HCl 0.5 MG/0.5 ML SYRINGE IVPUSH ×2 (07:44→12:14)
[2024-04-11] MEDS: Atorvastatin Calcium 40 MG TABLET PO (07:59)
[2024-04-11] MEDS: Fluticasone Propionate Nasal 16 GM SPRAY 1 SPRAY NOSTRIL-B ×2 (08:02→21:18)
[2024-04-11] MEDS: Fluticasone/Umeclidinium/Vilanterol 100/62.5/25 BLST.W.DEV 1 PUFF INHALE (08:37)
--- NOTE | 2024-04-11 08:52 | PM.NEUROCN ---
History of Present Illness Data of Consult Service Date: 04/11/24 Primary Care Provider: Shayla Augustine NP [facility] Reason for consult: Weakness 68 years old man I was asked to see for right-sided weakness. He was admitted for multiple medical issues including end-stage renal disease and multiple metabolic abnormalities. Apparently he has been complaining of right-sided weakness for couple of weeks. Brain imaging was done and this consultation was requested. There was no evidence of any seizure-like episode or any complain of headache or neck pain. There was no recent trauma. Review of Systems Review of Systems: As per HPI [facility] Past Medical History Medical History (Updated 04/11/24 @ 08:54 by Lavelle Mckeon MD) Dry gangrene HFrEF (heart failure with reduced ejection fraction) ESRD (end stage renal disease) Chronic combined systolic and diastolic CHF (congestive heart failure) Chronic pericardial effusion Arthritis Asthma Restless leg syndrome Acute on chronic systolic and diastolic heart failure, NYHA class 3 Anemia ESRD (end stage renal disease) Occlusive thrombus Pulmonary edema ROBERT (obstructive sleep apnea) Type 2 diabetes mellitus Hyperlipidemia Hypertension A-V fistula ESRD on dialysis Falling Family History Family History Father No problems noted. Mother No problems noted. Surgical History Surgical History (Updated 04/09/24 @ 13:03 by Leigh Ann Lamb RN) History of transmetatarsal amputation of foot History of surgery H/O colonoscopy Recurrent pleural effusion Pleural effusion on right (07/13/23) Social History Social History Household Members: Children Household Members Other:: son Housing: Apartment Are you a primary customer care voice consultant to a significant other at home: No Do you presently have visiting nurse or other home services: No Alcohol intake: never Comment: counts correct Patient Tobacco Use Status: Former Tobacco user Tobacco use type: Cigarette Smoked in Last 30 Days: No Second Hand Smoke Exposure: No Use of substances other than those prescribed or required for medical reasons: No Currently Displaying Signs/Symptoms of Drug Intoxication Withdrawal: No Have you been hit, kicked, punched, or otherwise hurt by someone within the past year? If so, by whom?: No Do you feel safe in your current relationship?: No Current Relationship Are you DNR?: No Advance Directives: Yes Advance Directives Information Provided: Yes Advance Directives on File: Yes Advance Directives Date on File: 04/13/23 Do you have a plan to hurt others: No Plan Recently lost weight without trying: No How much weight loss: Not applicable Eating poorly because of decreased appetite: No Nutrition screen score: 0 Nutrition Risks: No Nutritional Risk Poor oral hygiene: Yes (missing teeth throughout) service: No Meds Allergies Allergy/AdvReac Type Severity Reaction Status Date / Time Iodinated Contrast Media Allergy Severe Facial Verified 04/09/24 13:05 [Contrast Dye] Swelling Active Medications: Current Medications Acetaminophen (Acetaminophen 325 Mg Tablet) 650 mg PO Q6H PRN PRN Reason: Pain, Mild 1-3,fever,headache Last Admin: 04/07/24 19:56 Dose: 650 mg Al Hydroxide/Mg Hydroxide (Magnesium Hydrox/Alum Hydrox 30 Ml Oral.Susp) 30 ml PO Q4H PRN PRN Reason: Heartburn Albuterol Sulfate (Albuterol Sulfate 90 Mcg 8 Gm Inhaler) 2 puff INHALE Q4H PRN PRN Reason: Shortness Of Breath Albuterol/Ipratropium (Albuterol/Iprat 2.5/0.5mg 3 Ml Ampul.Neb) 3 ml INHALE QID PRN PRN Reason: Wheezing Allopurinol (Allopurinol 100 Mg Tablet) 100 mg PO MOWEFR@1600 COUNT INCLUDES THE [facility] Last Admin: 04/10/24 18:18 Dose: 100 mg Aspirin (Aspirin Enteric Coated 81 Mg Tablet.) 81 mg PO MOWEFR@1600 COUNT INCLUDES THE [facility] Last Admin: 04/10/24 18:17 Dose: 81 mg Aspirin (Aspirin Enteric Coated 81 Mg Tablet.) 81 mg PO SUTUTHSA@09 COUNT INCLUDES THE [facility] Last Admin: 04/09/24 08:31 Dose: 81 mg Atorvastatin Calcium (Atorvastatin Calcium 40 Mg Tablet) 40 mg PO MOWEFR@1600 COUNT INCLUDES THE [facility] Last Admin: 04/10/24 18:17 Dose: 40 mg Atorvastatin Calcium (Atorvastatin Calcium 40 Mg Tablet) 40 mg PO SUTUTHSA@0900 COUNT INCLUDES THE [facility] Last Admin: 04/11/24 07:59 Dose: 40 mg Bisacodyl (Bisacodyl 10 Mg Supp.Rect) 10 mg AL DAILY PRN PRN Reason: Constipation Calcium Carbonate (Calcium Carbonate 750 Mg Tab.Chew) 750 mg PO Q4H PRN PRN Reason: Heartburn Carvedilol (Carvedilol 6.25 Mg Tablet) 6.25 mg PO BID COUNT INCLUDES THE [facility]; Protocol Last Admin: 04/11/24 07:38 Dose: 6.25 mg Dextrose (Dextrose 50 % 25 Gm/50 Ml Syringe) 25 gm IVPUSH Q15M PRN; Protocol PRN Reason: per Hypoglycemia Standing Ord. Doxazosin Mesylate (Doxazosin Mesylate 2 Mg Tablet) 4 mg PO BEDTIME COUNT INCLUDES THE [facility]; Protocol Last Admin: 04/10/24 21:25 Dose: 4 mg Epoetin Keegan-epbx (Epoetin Keegan-Epbx 10,000 Unit/Ml Vial) 10,000 unit SUBCUT MoWeFr@1645 COUNT INCLUDES THE [facility] Last Admin: 04/10/24 18:30 Dose: Not Given Fluticasone Propionate (Fluticasone Propionate Nasal 16 Gm Mildred) 1 spray NOSTRIL-B BID COUNT INCLUDES THE [facility] Last Admin: 04/11/24 08:02 Dose: 1 spray Fluticasone/Umeclidinium/Vilanterol (Fluticasone/Umeclidinium/Vilanterol 100/62.5/25 Blst.W.Dev) 1 puff INHALE RDAILY COUNT INCLUDES THE [facility] Last Admin: 04/11/24 08:37 Dose: 1 puff Furosemide (Furosemide 40 Mg Tablet) 80 mg PO MOWEFR@1600 NASREEN; Protocol Last Admin: 04/10/24 18:17 Dose: 80 mg Furosemide (Furosemide 40 Mg Tablet) 80 mg PO SUTUTHSA@0900 COUNT INCLUDES THE [facility]; Protocol Last Admin: 04/11/24 07:58 Dose: 80 mg Glucose (Glucose Gel 15 Gm Gel..Gram.) 15 gm PO Q15M PRN; Protocol PRN Reason: per Hypoglycemia Standing Ord. Heparin Sodium (Porcine) (Heparin Sodium,Porcine 5,000 Unit/Ml Vial) 5,000 unit SUBCUT BID COUNT INCLUDES THE [facility] Last Admin: 04/11/24 07:57 Dose: Not Given Hydralazine HCl (Hydralazine Hcl 25 Mg Tablet) 25 mg PO MOWEFR@1600 [place]RE[place]; Protocol Last Admin: 04/10/24 18:18 Dose: 25 mg Hydralazine HCl (Hydralazine Hcl 25 Mg Tablet) 25 mg PO SUTUTHSA@,,21 COUNT INCLUDES THE [facility]; Protocol Last Admin: 04/09/24 21:34 Dose: 25 mg Hydromorphone HCl (Hydromorphone Hcl 0.5 Mg/0.5 Ml Syringe) 0.5 mg IVPUSH Q4H PRN; Protocol PRN Reason: Pain, Severe (Pain Scale 7-10) Last Admin: 04/11/24 07:44 Dose: 0.5 mg Piperacillin Sod/Tazobactam (Sod 2.25 gm/ Sodium Chloride) 50 mls @ 100 mls/hr IV Q8H COUNT INCLUDES THE [facility] Last Infusion: 04/11/24 05:53 Dose: Infused Vancomycin HCl 500 mg/ Sodium (Chloride) 110 mls @ 110 mls/hr IV ONCE ONE Stop: 04/05/24 15:29 Insulin Glargine (Insulin Glargine,Hum.Rec.Anlog 100 Unit/Ml 10 Ml Vial) 10 unit SUBCUT BEDTIME COUNT INCLUDES THE [facility] Last Admin: 04/10/24 21:24 Dose: 10 unit Insulin Human Lispro (Insulin Lispro 100 Unit/Ml 3 Ml Vial) 0 unit SUBCUT QIDACHS COUNT INCLUDES THE [facility]; Protocol Last Admin: 04/11/24 07:39 Dose: 8 unit Losartan Potassium (Losartan Potassium 25 Mg Tablet) 25 mg PO MOWEFR@1600 COUNT INCLUDES THE [facility]; Protocol Last Admin: 04/10/24 18:17 Dose: 25 mg Losartan Potassium (Losartan Potassium 25 Mg Tablet) 25 mg PO SUTUTHSA@0900 COUNT INCLUDES THE [facility]; Protocol Last Admin: 04/11/24 08:03 Dose: 25 mg Magnesium Hydroxide (Milk Of Magnesia 30 Ml Oral.Susp) 30 ml PO DAILY PRN PRN Reason: Constipation Last Admin: 04/09/24 21:34 Dose: 30 ml Melatonin (Melatonin 3 Mg Tablet) 6 mg PO BEDTIME PRN PRN Reason: Insomnia Non-Formulary Medication (Sucroferric Oxyhydroxide [Velphoro]) 500 mg PO TID COUNT INCLUDES THE [facility] Omeprazole (Omeprazole 20 Mg Capsule.Dr) 20 mg PO DAILY@0630 COUNT INCLUDES THE [facility] Last Admin: 04/11/24 05:21 Dose: 20 mg Ondansetron HCl (Ondansetron Hcl 4 Mg/2 Ml Vial) 4 mg IVPUSH Q8H PRN PRN Reason: Nausea and Vomiting Oxycodone HCl (Oxycodone Hcl Immed Release 5 Mg Tablet) 5 mg PO Q4H PRN PRN Reason: Pain, Moderate(Pain Scale 4-6) Pharmacy Consult (Consult Rx Vancomycin Dosing) 1 each MISCELLANE DAILY PRN PRN Reason: Consult order Polyethylene Glycol (Polyethylene Glycol 3350 17 Gm Powd.Pack) 17 gm PO DAILY PRN PRN Reason: Constipation Pregabalin (Pregabalin 75 Mg Capsule) 75 mg PO MOWEFR@1600 COUNT INCLUDES THE [facility] Last Admin: 04/10/24 18:17 Dose: 75 mg Pregabalin (Pregabalin 75 Mg Capsule) 75 mg PO SUTUTHSA@,, COUNT INCLUDES THE [facility] Last Admin: 04/09/24 21:34 Dose: 75 mg Senna (Sennosides 8.6 Mg Tablet) 8.6 mg PO DAILY PRN PRN Reason: Constipation Sodium Chloride (0.9 % Sodium Chloride Flush 3 Ml Syringe) 3 ml IVFLUSH QSHIFT COUNT INCLUDES THE [facility] Last Admin: 04/11/24 07:39 Dose: 3 ml Home Medications ?Medication ?Instructions ?Recorded ?Confirmed ?Last Taken ?Type albuterol sulfate 90 mcg/actuation 2 puff inhalation Q4H PRN 04/19/22 04/05/24 03/05/24 History aerosol inhaler Shortness Of Breath allopurinol 100 mg tablet 100 mg PO MOWEFR@1600 04/19/22 04/05/24 03/18/24 History atorvastatin 40 mg tablet 40 mg PO SUTUTHSA@0900 04/19/22 04/05/24 03/19/24 History doxazosin 4 mg tablet 4 mg PO BEDTIME 04/19/22 04/05/24 03/18/24 History furosemide 80 mg tablet 80 mg PO SUTUTHSA@0900 04/19/22 04/05/24 03/19/24 History ipratropium 0.5 mg-albuterol 3 mg 3 ml inhalation QID PRN Wheezing 04/19/22 04/05/24 Unknown History (2.5 mg base)/3 mL nebulization soln omeprazole 20 mg capsule,delayed 20 mg PO DAILY@0630 04/19/22 04/05/24 03/19/24 History release insulin glargine 100 unit/mL (3 22 unit subcut BEDTIME 04/10/23 04/05/24 03/18/24 History mL) subcutaneous pen (Lantus Solostar U-100 Insulin) insulin lispro 100 unit/mL 1 sliding scale dose subcut TIDAC 04/10/23 04/05/24 03/18/24 History subcutaneous pen aspirin 81 mg tablet,delayed 81 mg PO SUTUTHSA@06/20/23 04/05/24 03/19/24 History release pregabalin 75 mg capsule 75 mg PO SUTUTHSA@,15,21 06/20/23 04/05/24 03/19/24 History hydralazine 25 mg tablet 25 mg PO SUTUTHSA@,15,21 01/24/24 04/05/24 03/19/24 History sucroferric oxyhydroxide 500 mg 500 mg PO TID 01/24/24 04/05/24 03/19/24 History chewable tablet (Velphoro) acetaminophen 325 mg tablet 650 mg PO Q4H PRN PAIN/FEVER 04/05/24 04/05/24 Unknown History aspirin 81 mg tablet,delayed 81 mg PO MOWEFR@159904/05/24 04/05/24 Unknown History release atorvastatin 40 mg tablet 40 mg PO MOWEFR@159904/05/24 04/05/24 Unknown History bisacodyl 10 mg rectal suppository 10 mg AL DAILY PRN Constipation 04/05/24 04/05/24 Unknown History (Dulcolax (bisacodyl)) carvedilol 6.25 mg tablet 6.25 mg PO BID 04/05/24 04/05/24 Unknown History cephalexin 500 mg capsule 500 mg PO BID 04/05/24 04/05/24 Unknown History fluticasone fur. 100 mcg-umeclid 1 inh inhalation DAILY 04/05/24 04/05/24 Unknown History 62.5 mcg-vilant 25 mcg inhalat.powder (Trelegy Ellipta) furosemide 80 mg tablet 80 mg PO MOWEFR@159904/05/24 04/05/24 Unknown History hydralazine 25 mg tablet 25 mg PO MOWEFR@159904/05/24 04/05/24 Unknown History losartan 25 mg tablet 25 mg PO MOWEFR@159904/05/24 04/05/24 Unknown History losartan 25 mg tablet 25 mg PO SUTUTHSA@0900 04/05/24 04/05/24 Unknown History oxycodone 5 mg tablet 5 mg PO Q6H PRN pain 04/05/24 04/05/24 Unknown History pantoprazole 40 mg tablet,delayed 40 mg PO DAILY 04/05/24 04/05/24 Unknown History release pregabalin 75 mg capsule 75 mg PO MOWEFR@1600 04/05/24 04/05/24 Unknown History sennosides 8.6 mg tablet (senna) 8.6 mg PO DAILY PRN Constipation 04/05/24 04/05/24 Unknown History Physical Exam Vital Signs: Vital Signs: Last Vital Signs Temp 98.8 F 04/11/24 07:19 Pulse 64 04/11/24 08:40 Resp 18 04/11/24 08:40 BP 158/86 H 04/11/24 07:19 Pulse Ox 99 04/11/24 07:19 O2 Del Method Nasal Cannula 04/11/24 07:19 O2 Flow Rate 2 04/11/24 07:19 Oxygen Flow Rate 2 04/05/24 10:37 BMI result Body Mass Index 28.0 Neuro: Other: He is mildly drowsy but easily arousable and able to follow simple commands. There was no sign of distress. Face was symmetrical. Visual thomas are full. Extraocular muscles were intact. There was no pronator drift. Right foot was amputated but he was able to lift legs up against gravity without difficulty. Deep tendon reflexes were absent. Speech was normal. Results Labs 04/11/24 06:34 04/08/24 18:59 Labs: Short CBC 04/11/24 Range/Units 06:34 WBC 16.6 H (4.8-10.8) X10*3/uL Hgb 8.8 L (14.0-18.0) g/dl Hct 28.3 L (42.0-52.0) % Plt Count 388 (160-400) X10*3/uL Head CT did not reveal any acute abnormality. Mild chronic microvascular ischemic changes and mild atrophy was noted. Microbiology Microbiology Results: Microbiology 04/05/24 12:38 Blood - Venous Blood Culture - Final No growth after 5 days. 04/05/24 12:50 Blood - Venous Blood Culture - Final No growth after 5 days. 04/09/24 14:48 Foot Right Gram Stain - Final 04/09/24 14:48 Foot Right Routine Culture - Preliminary Culture in progress. Assessment and Plan (1) Right sided weakness: Status: Acute His exam at this time does not reveal any hemiparesis or significant right-sided weakness. He has signs of chronic peripheral neuropathy. His mental status is partly explainable based upon metabolic abnormalities. No significant lesion is noted on brain imaging. If symptoms recur, consider an EEG. Procedures Date of Service Date of Service: 04/11/24
--- NOTE | 2024-04-11 09:41 | HO.VASCPN ---
Subjective Subjective Date of Service: 04/11/24 Interval history: Beau is doing ok this morning. He is NPO for surgery later today. He has been sleeping ok. He continues to endorse significant pain to the right TMA site. He has no concerns this morning. Physical Exam Vital Signs: Vital Signs: Last Vital Signs Temp 98.8 F 04/11/24 07:19 Pulse 64 04/11/24 08:40 Resp 18 04/11/24 08:40 BP 158/86 H 04/11/24 07:19 Pulse Ox 99 04/11/24 07:19 O2 Del Method Nasal Cannula 04/11/24 07:19 O2 Flow Rate 2 04/11/24 07:19 Oxygen Flow Rate 2 04/05/24 10:37 BMI result Body Mass Index 28.0 Const: General: comfortable and no acute distress Orientation/consciousness: patient oriented x3 HEENT: Ears: hearing grossly normal bilaterally Resp: Effort & Inspection: normal respiratory effort and able to speak in complete sentences Auscultation: clear to auscultation bilaterally Cardio: Rate: regular rate Rhythm: regular rhythm Heart sounds: S1 normal heart sound present and S2 normal heart sound present Bruits: no abdominal aortic bruits, no carotid bruits, no femoral bruits and no renal bruits GI: Palpation (GI): No Abdominal aortic bruit present Neuro: General: patient oriented x3 Cranial nerves: Yes CN's II-XII intact bilaterally Extrem: Other: Right TMA site: dressing in place, not taken down Progress Note: A&P Assessment and plan (1) Status post transmetatarsal amputation of right foot: Status: Acute Assessment and Plan: Beau remains stable this morning. 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 He continues to endorse significant pain at the TMA site. His white count has decreased and his H/H has slighty decreased and he had dialysis yesterday. We will be taking him to the OR today for a right BKA. The pt and family have been informed of the procedure and are in agreement to it. We will continue to monitor. If there are any questions or concerns, please do not hesitate to reach out. Time Spent With Patient Time: Total time managing care of this patient today ____ minutes. Procedures Date of Service Date of Service: 04/11/24 Quality Stroke Does the patient have a stroke diagnosis?: No VTE Prior VTE?: No VTE Risk Level:: Medical - moderate - high VTE Device Contraindication: Treatment Not Indicated VTE Drug Contraindication: N/A - Med Ordered
[2024-04-11] MEDS: Aspirin Enteric Coated 81 MG TABLET.DR PO (10:36)
[2024-04-11] MEDS: Pregabalin 75 MG CAPSULE PO ×3 (10:36→21:18)
[2024-04-11] MEDS: hydrALAZINE HCl 25 MG TABLET PO ×3 (10:36→21:18)
[2024-04-11 10:59] LABS: Glucose, Whole Blood 108 mg/dL (60-115)
[2024-04-11 13:06] LABS: Glucose, Whole Blood 80 mg/dL (60-115)
--- NOTE | 2024-04-11 13:15 | HO.ANESPROP2 ---
HPI - Anesthesia Eval Consult details Narrative: 68 yo M presenting for right BKA. ESRD on HD - received dialysis yesterday. K was 5.4 via [facility] today. PMFSH Active Problems Active Problems: All Active Problems Right sided weakness (Acute) ESRD needing dialysis (Acute) Dehiscence of wound (Acute) Status post transmetatarsal amputation of right foot (Acute) Peripheral arterial disease (Acute) Cellulitis of right foot (Acute) Infection of toe (Acute) Hypertension (Acute) Pleural effusion (Acute) Acute hypokalemia (Acute) Osteomyelitis (Acute) Somatization disorder (Acute) Trapped lung (Acute) Recurrent pleural effusion on right (Chronic) Exudative pleural effusion (Acute) Postop check (Acute) Hyponatremia (Acute) Hyperkalemia (Acute) Dry gangrene (Acute) Chronic combined systolic and diastolic CHF (congestive heart failure) (Chronic) ESRD on dialysis (Chronic) Acute on chronic systolic and diastolic heart failure, NYHA class 3 (Chronic) Hypertension (Chronic) Type 2 diabetes mellitus (Chronic) ESRD (end stage renal disease) (Acute) Past Medical History Medical History (Updated 04/11/24 @ 08:54 by Lavelle Mckeon MD) Dry gangrene HFrEF (heart failure with reduced ejection fraction) ESRD (end stage renal disease) Chronic combined systolic and diastolic CHF (congestive heart failure) Chronic pericardial effusion Arthritis Asthma Restless leg syndrome Acute on chronic systolic and diastolic heart failure, NYHA class 3 Anemia ESRD (end stage renal disease) Occlusive thrombus Pulmonary edema ROBERT (obstructive sleep apnea) Type 2 diabetes mellitus Hyperlipidemia Hypertension A-V fistula ESRD on dialysis Falling Family History Family History Father No problems noted. Mother No problems noted. Family history of problems with anesthesia: No Surgical History Surgical History (Updated 04/09/24 @ 13:03 by Leigh Ann Lamb RN) History of transmetatarsal amputation of foot History of surgery H/O colonoscopy Recurrent pleural effusion Pleural effusion on right (07/13/23) History of Problems with Anesthesia: No Social History Social History Household Members: Children Household Members Other:: son Housing: Apartment Are you a primary morning caregiver to a significant other at home: No Do you presently have visiting nurse or other home services: No Alcohol intake: never Comment: counts correct Patient Tobacco Use Status: Former Tobacco user Tobacco use type: Cigarette Smoked in Last 30 Days: No Second Hand Smoke Exposure: No Use of substances other than those prescribed or required for medical reasons: No Currently Displaying Signs/Symptoms of Drug Intoxication Withdrawal: No Have you been hit, kicked, punched, or otherwise hurt by someone within the past year? If so, by whom?: No Do you feel safe in your current relationship?: No Current Relationship Are you DNR?: No Advance Directives: Yes Advance Directives Information Provided: Yes Advance Directives on File: Yes Advance Directives Date on File: 04/13/23 Do you have a plan to hurt others: No Plan Recently lost weight without trying: No How much weight loss: Not applicable Eating poorly because of decreased appetite: No Nutrition screen score: 0 Nutrition Risks: No Nutritional Risk Poor oral hygiene: Yes (missing teeth throughout) service: No Meds Allergies Allergy/AdvReac Type Severity Reaction Status Date / Time Iodinated Contrast Media Allergy Severe Facial Verified 04/09/24 13:05 [Contrast Dye] Swelling Active Medications: Current Medications Acetaminophen (Acetaminophen 325 Mg Tablet) 650 mg PO Q6H PRN PRN Reason: Pain, Mild 1-3,fever,headache Last Admin: 04/07/24 19:56 Dose: 650 mg Al Hydroxide/Mg Hydroxide (Magnesium Hydrox/Alum Hydrox 30 Ml Oral.Susp) 30 ml PO Q4H PRN PRN Reason: Heartburn Albuterol Sulfate (Albuterol Sulfate 90 Mcg 8 Gm Inhaler) 2 puff INHALE Q4H PRN PRN Reason: Shortness Of Breath Albuterol/Ipratropium (Albuterol/Iprat 2.5/0.5mg 3 Ml Ampul.Neb) 3 ml INHALE QID PRN PRN Reason: Wheezing Allopurinol (Allopurinol 100 Mg Tablet) 100 mg PO MOWEFR@1600 [facility] Last Admin: 04/10/24 18:18 Dose: 100 mg Aspirin (Aspirin Enteric Coated 81 Mg Tablet.) 81 mg PO MOWEFR@1600 [facility] Last Admin: 04/10/24 18:17 Dose: 81 mg Aspirin (Aspirin Enteric Coated 81 Mg Tablet.) 81 mg PO SUTUTHSA@09 [facility] Last Admin: 04/11/24 10:36 Dose: 81 mg Atorvastatin Calcium (Atorvastatin Calcium 40 Mg Tablet) 40 mg PO MOWEFR@1600 [facility] Last Admin: 04/10/24 18:17 Dose: 40 mg Atorvastatin Calcium (Atorvastatin Calcium 40 Mg Tablet) 40 mg PO SUTUTHSA@0900 [facility] Last Admin: 04/11/24 07:59 Dose: 40 mg Bisacodyl (Bisacodyl 10 Mg Supp.Rect) 10 mg [place] DAILY PRN PRN Reason: Constipation Calcium Carbonate (Calcium Carbonate 750 Mg Tab.Chew) 750 mg PO Q4H PRN PRN Reason: Heartburn Carvedilol (Carvedilol 6.25 Mg Tablet) 6.25 mg PO BID [facility]; Protocol Last Admin: 04/11/24 07:38 Dose: 6.25 mg Dextrose (Dextrose 50 % 25 Gm/50 Ml Syringe) 25 gm IVPUSH Q15M PRN; Protocol PRN Reason: per Hypoglycemia Standing Ord. Doxazosin Mesylate (Doxazosin Mesylate 2 Mg Tablet) 4 mg PO BEDTIME [facility]; Protocol Last Admin: 04/10/24 21:25 Dose: 4 mg Epoetin Keegan-epbx (Epoetin Keegan-Epbx 10,000 Unit/Ml Vial) 10,000 unit SUBCUT MoWeFr@1645 [facility] Last Admin: 04/10/24 18:30 Dose: Not Given Fluticasone Propionate (Fluticasone Propionate Nasal 16 Gm [place]) 1 spray NOSTRIL-B BID [facility] Last Admin: 04/11/24 08:02 Dose: 1 spray Fluticasone/Umeclidinium/Vilanterol (Fluticasone/Umeclidinium/Vilanterol 100/62.5/25 Blst.W.Dev) 1 puff INHALE RDAILY [facility] Last Admin: 04/11/24 08:37 Dose: 1 puff Furosemide (Furosemide 40 Mg Tablet) 80 mg PO MOWEFR@1600 [facility]; Protocol Last Admin: 04/10/24 18:17 Dose: 80 mg Furosemide (Furosemide 40 Mg Tablet) 80 mg PO SUTUTHSA@0900 [facility]; Protocol Last Admin: 04/11/24 07:58 Dose: 80 mg Glucose (Glucose Gel 15 Gm Gel..Gram.) 15 gm PO Q15M PRN; Protocol PRN Reason: per Hypoglycemia Standing Ord. Haloperidol Lactate (Haloperidol Lactate 5 Mg/Ml Vial) 0.5 mg IVPUSH ONCE PRN PRN Reason: intractable nausea Stop: 04/11/24 20:13 Heparin Sodium (Porcine) (Heparin Sodium,Porcine 5,000 Unit/Ml Vial) 5,000 unit SUBCUT BID [facility] Last Admin: 04/11/24 07:57 Dose: Not Given Hydralazine HCl (Hydralazine Hcl 25 Mg Tablet) 25 mg PO MOWEFR@1600 [facility]; Protocol Last Admin: 04/10/24 18:18 Dose: 25 mg Hydralazine HCl (Hydralazine Hcl 25 Mg Tablet) 25 mg PO SUTUTHSA@09,15,21 [facility]; Protocol Last Admin: 04/11/24 10:36 Dose: 25 mg Hydromorphone HCl (Hydromorphone Hcl 0.5 Mg/0.5 Ml Syringe) 0.5 mg IVPUSH Q4H PRN; Protocol PRN Reason: Pain, Severe (Pain Scale 7-10) Last Admin: 04/11/24 12:14 Dose: 0.5 mg Hydromorphone HCl (Hydromorphone Hcl 0.5 Mg/0.5 Ml Syringe) 0.25 mg IVPUSH Q5M PRN PRN Reason: Pain, Moderate to Severe (Pain Scale 4-10) Stop: 04/11/24 20:13 Piperacillin Sod/Tazobactam (Sod 2.25 gm/ Sodium Chloride) 50 mls @ 100 mls/hr IV Q8H [facility] Last Infusion: 04/11/24 05:53 Dose: Infused Vancomycin HCl 500 mg/ Sodium (Chloride) 110 mls @ 110 mls/hr IV ONCE ONE Stop: 04/05/24 15:29 Insulin Glargine (Insulin Glargine,Hum.Rec.Anlog 100 Unit/Ml 10 Ml Vial) 10 unit SUBCUT BEDTIME [facility] Last Admin: 04/10/24 21:24 Dose: 10 unit Insulin Human Lispro (Insulin Lispro 100 Unit/Ml 3 Ml Vial) 0 unit SUBCUT QIDACHS [facility]; Protocol Last Admin: 04/11/24 12:07 Dose: Not Given Losartan Potassium (Losartan Potassium 25 Mg Tablet) 25 mg PO MOWEFR@1600 [facility]; Protocol Last Admin: 04/10/24 18:17 Dose: 25 mg Losartan Potassium (Losartan Potassium 25 Mg Tablet) 25 mg PO SUTUTHSA@0900 [facility]; Protocol Last Admin: 04/11/24 08:03 Dose: 25 mg Magnesium Hydroxide (Milk Of Magnesia 30 Ml Oral.Susp) 30 ml PO DAILY PRN PRN Reason: Constipation Last Admin: 04/09/24 21:34 Dose: 30 ml Melatonin (Melatonin 3 Mg Tablet) 6 mg PO BEDTIME PRN PRN Reason: Insomnia Naloxone HCl (Naloxone Hcl 0.4 Mg/Ml Vial) 0.04 mg IVPUSH Q5M PRN PRN Reason: Excessive sedation or RR < 8 Non-Formulary Medication (Sucroferric Oxyhydroxide [Velphoro]) 500 mg PO TID [facility] Omeprazole (Omeprazole 20 Mg Capsule.Dr) 20 mg PO DAILY@0630 [facility] Last Admin: 04/11/24 05:21 Dose: 20 mg Ondansetron HCl (Ondansetron Hcl 4 Mg/2 Ml Vial) 4 mg IVPUSH Q8H PRN PRN Reason: Nausea and Vomiting Oxycodone HCl (Oxycodone Hcl Immed Release 5 Mg Tablet) 5 mg PO Q4H PRN PRN Reason: Pain, Moderate(Pain Scale 4-6) Pharmacy Consult (Consult Rx Vancomycin Dosing) 1 each MISCELLANE DAILY PRN PRN Reason: Consult order Polyethylene Glycol (Polyethylene Glycol 3350 17 Gm Powd.Pack) 17 gm PO DAILY PRN PRN Reason: Constipation Pregabalin (Pregabalin 75 Mg Capsule) 75 mg PO MOWEFR@1600 [facility] Last Admin: 04/10/24 18:17 Dose: 75 mg Pregabalin (Pregabalin 75 Mg Capsule) 75 mg PO SUTUTHSA@,, [facility] Last Admin: 04/11/24 10:36 Dose: 75 mg Senna (Sennosides 8.6 Mg Tablet) 8.6 mg PO DAILY PRN PRN Reason: Constipation Sodium Chloride (0.9 % Sodium Chloride Flush 3 Ml Syringe) 3 ml IVFLUSH QSHIFT [facility] Last Admin: 04/11/24 07:39 Dose: 3 ml Home Medications ?Medication ?Instructions ?Recorded ?Confirmed ?Last Taken ?Type albuterol sulfate 90 mcg/actuation 2 puff inhalation Q4H PRN 04/19/22 04/05/24 03/05/24 History aerosol inhaler Shortness Of Breath allopurinol 100 mg tablet 100 mg PO MOWEFR@1600 04/19/22 04/05/24 03/18/24 History atorvastatin 40 mg tablet 40 mg PO SUTUTHSA@0900 04/19/22 04/05/24 03/19/24 History doxazosin 4 mg tablet 4 mg PO BEDTIME 04/19/22 04/05/24 03/18/24 History furosemide 80 mg tablet 80 mg PO SUTUTHSA@0900 04/19/22 04/05/24 03/19/24 History ipratropium 0.5 mg-albuterol 3 mg 3 ml inhalation QID PRN Wheezing 04/19/22 04/05/24 Unknown History (2.5 mg base)/3 mL nebulization soln omeprazole 20 mg capsule,delayed 20 mg PO DAILY@0630 04/19/22 04/05/24 03/19/24 History release insulin glargine 100 unit/mL (3 22 unit subcut BEDTIME 04/10/23 04/05/24 03/18/24 History mL) subcutaneous pen (Lantus Solostar U-100 Insulin) insulin lispro 100 unit/mL 1 sliding scale dose subcut TIDAC 04/10/23 04/05/24 03/18/24 History subcutaneous pen aspirin 81 mg tablet,delayed 81 mg PO SUTUTHSA@06/20/23 04/05/24 03/19/24 History release pregabalin 75 mg capsule 75 mg PO SUTUTHSA@,,06/20/23 04/05/24 03/19/24 History hydralazine 25 mg tablet 25 mg PO SUTUTHSA@,,01/24/24 04/05/24 03/19/24 History sucroferric oxyhydroxide 500 mg 500 mg PO TID 01/24/24 04/05/24 03/19/24 History chewable tablet (Velphoro) acetaminophen 325 mg tablet 650 mg PO Q4H PRN PAIN/FEVER 04/05/24 04/05/24 Unknown History aspirin 81 mg tablet,delayed 81 mg PO MOWEFR@159904/05/24 04/05/24 Unknown History release atorvastatin 40 mg tablet 40 mg PO MOWEFR@159904/05/24 04/05/24 Unknown History bisacodyl 10 mg rectal suppository 10 mg [place] DAILY PRN Constipation 04/05/24 04/05/24 Unknown History (Dulcolax (bisacodyl)) carvedilol 6.25 mg tablet 6.25 mg PO BID 04/05/24 04/05/24 Unknown History cephalexin 500 mg capsule 500 mg PO BID 04/05/24 04/05/24 Unknown History fluticasone fur. 100 mcg-umeclid 1 inh inhalation DAILY 04/05/24 04/05/24 Unknown History 62.5 mcg-vilant 25 mcg inhalat.powder (Trelegy Ellipta) furosemide 80 mg tablet 80 mg PO MOWEFR@1600 04/05/24 04/05/24 Unknown History hydralazine 25 mg tablet 25 mg PO MOWEFR@1600 04/05/24 04/05/24 Unknown History losartan 25 mg tablet 25 mg PO MOWEFR@1600 04/05/24 04/05/24 Unknown History losartan 25 mg tablet 25 mg PO SUTUTHSA@0900 04/05/24 04/05/24 Unknown History oxycodone 5 mg tablet 5 mg PO Q6H PRN pain 04/05/24 04/05/24 Unknown History pantoprazole 40 mg tablet,delayed 40 mg PO DAILY 04/05/24 04/05/24 Unknown History release pregabalin 75 mg capsule 75 mg PO MOWEFR@1600 04/05/24 04/05/24 Unknown History sennosides 8.6 mg tablet (senna) 8.6 mg PO DAILY PRN Constipation 04/05/24 04/05/24 Unknown History Exam Exam Date and Time: 04/11/24 1315 Height,Weight and Vital Signs: Height 5 ft 4 in Weight 74.1 kg Last Vital Signs Temp 98.4 F 04/11/24 12:51 Pulse 68 04/11/24 12:51 Resp 18 04/11/24 12:51 BP 162/65 H 04/11/24 12:51 Pulse Ox 99 04/11/24 12:51 O2 Del Method Nasal Cannula 04/11/24 12:51 O2 Flow Rate 3 04/11/24 12:51 Oxygen Flow Rate 2 04/05/24 10:37 Pertinent Lab Results Pertinent Lab Results: Laboratory Tests 04/05/24 04/05/24 04/05/24 11:14 16:44 20:52 WBC 26.9 H RBC 4.16 L Hgb 9.6 L POC Hgb (Calc) Hct 31.0 L POC Hct MCV 74.5 L MCH 23.1 L MCHC 31.0 RDW 16.4 H Plt Count 291 MPV 10.6 Immature Gran % (Auto) 0.7 H Neut % (Auto) 90.3 H Lymph % (Auto) 3.1 L [place] % (Auto) 5.3 Eos % (Auto) 0.4 Baso % (Auto) 0.2 Lymph # (Auto) 0.8 L [place] # (Auto) 1.4 H Eos # (Auto) 0.1 Baso # (Auto) 0.1 Abs Immat Gran (auto) 0.19 H Absolute Neuts (auto) 24.2 H Absolute Nucleated RBC 0.000 Nucleated RBC % (auto) 0.0 Smear Tech's Comments VERIFIED ESR 96 H PT 14.8 H INR 1.3 H POC Std Base Excess POC O2 Sat (Calc) POC ABG pO2 POC ABG Total CO2 POC Capillary pH POC Capillary pCO2 POC Cap HCO3 (Calc) POC Sodium Sodium 142 POC Potassium Potassium 4.1 D Chloride 98 Carbon Dioxide 31 H Anion Gap 17 BUN 24 H Creatinine 3.79 H Estim Creat Clear Calc 17.7 Estimated GFR 16 POC Glucose 155 H 320 H Random Glucose 188 H Estimat Average Glucose Hemoglobin A1c % Lactic Acid 0.8 Calcium 8.8 Magnesium 1.8 Total Bilirubin 0.5 Direct Bilirubin 0.2 AST 52 H ALT 37 Alkaline Phosphatase 274 H C-Reactive Protein 32.53 H Total Protein 8.0 Albumin 3.2 L Hold Green Top Random Vancomycin Blood Type Antibody Screen 04/06/24 04/06/24 04/06/24 06:38 07:37 11:04 WBC 27.6 H RBC 4.15 L Hgb 9.5 L POC Hgb (Calc) Hct 30.4 L POC Hct MCV 73.3 L MCH 22.9 L MCHC 31.3 RDW 16.4 H Plt Count 246 MPV 10.6 Immature Gran % (Auto) 1.9 H Neut % (Auto) 85.5 H Lymph % (Auto) 5.6 L [place] % (Auto) 6.1 Eos % (Auto) 0.6 Baso % (Auto) 0.3 Lymph # (Auto) 1.6 [place] # (Auto) 1.7 H Eos # (Auto) 0.2 Baso # (Auto) 0.1 Abs Immat Gran (auto) 0.53 H Absolute Neuts (auto) 23.6 H Absolute Nucleated RBC 0.070 H Nucleated RBC % (auto) 0.3 H Smear Tech's Comments VERIFIED ESR PT INR POC Std Base Excess POC O2 Sat (Calc) POC ABG pO2 POC ABG Total CO2 POC Capillary pH POC Capillary pCO2 POC Cap HCO3 (Calc) POC Sodium Sodium POC Potassium Potassium Chloride Carbon Dioxide Anion Gap BUN Creatinine Estim Creat Clear Calc Estimated GFR POC Glucose 114 198 H Random Glucose Estimat Average Glucose Hemoglobin A1c % Lactic Acid Calcium Magnesium Total Bilirubin Direct Bilirubin AST ALT Alkaline Phosphatase C-Reactive Protein Total Protein Albumin Hold Green Top Random Vancomycin Blood Type Antibody Screen 04/06/24 04/06/24 04/07/24 16:02 20:00 06:18 WBC 22.8 H RBC 3.78 L Hgb 8.8 L POC Hgb (Calc) Hct 27.8 L POC Hct MCV 73.5 L MCH 23.3 L MCHC 31.7 RDW 15.9 Plt Count 296 MPV 10.8 Immature Gran % (Auto) 0.7 H Neut % (Auto) 86.5 H Lymph % (Auto) 5.2 L [place] % (Auto) 6.1 Eos % (Auto) 1.3 Baso % (Auto) 0.2 Lymph # (Auto) 1.2 [place] # (Auto) 1.4 H Eos # (Auto) 0.3 Baso # (Auto) 0.1 Abs Immat Gran (auto) 0.17 H Absolute Neuts (auto) 19.8 H Absolute Nucleated RBC 0.000 Nucleated RBC % (auto) 0.0 Smear Tech's Comments ESR PT INR POC Std Base Excess POC O2 Sat (Calc) POC ABG pO2 POC ABG Total CO2 POC Capillary pH POC Capillary pCO2 POC Cap HCO3 (Calc) POC Sodium Sodium POC Potassium Potassium Chloride Carbon Dioxide Anion Gap BUN Creatinine Estim Creat Clear Calc Estimated GFR POC Glucose 276 H 196 H Random Glucose Estimat Average Glucose Hemoglobin A1c % Lactic Acid Calcium Magnesium Total Bilirubin Direct Bilirubin AST ALT Alkaline Phosphatase C-Reactive Protein Total Protein Albumin Hold Green Top Random Vancomycin Blood Type Antibody Screen 04/07/24 04/07/24 04/07/24 07:44 11:37 16:50 WBC RBC Hgb POC Hgb (Calc) Hct POC Hct MCV MCH MCHC RDW Plt Count MPV Immature Gran % (Auto) Neut % (Auto) Lymph % (Auto) [place] % (Auto) Eos % (Auto) Baso % (Auto) Lymph # (Auto) [place] # (Auto) Eos # (Auto) Baso # (Auto) Abs Immat Gran (auto) Absolute Neuts (auto) Absolute Nucleated RBC Nucleated RBC % (auto) Smear Tech's Comments ESR PT INR POC Std Base Excess POC O2 Sat (Calc) POC ABG pO2 POC ABG Total CO2 POC Capillary pH POC Capillary pCO2 POC Cap HCO3 (Calc) POC Sodium Sodium POC Potassium Potassium Chloride Carbon Dioxide Anion Gap BUN Creatinine Estim Creat Clear Calc Estimated GFR POC Glucose 271 H 132 H 142 H Random Glucose Estimat Average Glucose Hemoglobin A1c % Lactic Acid Calcium Magnesium Total Bilirubin Direct Bilirubin AST ALT Alkaline Phosphatase C-Reactive Protein Total Protein Albumin Hold Green Top Random Vancomycin Blood Type Antibody Screen 04/07/24 04/08/24 04/08/24 19:46 05:51 07:17 WBC 20.0 H RBC 4.04 L Hgb 9.2 L POC Hgb (Calc) Hct 29.1 L POC Hct MCV 72.0 L MCH 22.8 L MCHC 31.6 RDW 15.9 Plt Count 362 MPV 11.8 Immature Gran % (Auto) 1.3 H Neut % (Auto) 85.6 H Lymph % (Auto) 5.5 L [place] % (Auto) 5.2 Eos % (Auto) 2.2 Baso % (Auto) 0.2 Lymph # (Auto) 1.1 L [place] # (Auto) 1.0 Eos # (Auto) 0.4 Baso # (Auto) 0.1 Abs Immat Gran (auto) 0.27 H Absolute Neuts (auto) 17.1 H Absolute Nucleated RBC 0.000 Nucleated RBC % (auto) 0.0 Smear Tech's Comments ESR PT INR POC Std Base Excess POC O2 Sat (Calc) POC ABG pO2 POC ABG Total CO2 POC Capillary pH POC Capillary pCO2 POC Cap HCO3 (Calc) POC Sodium Sodium 137 POC Potassium Potassium 5.7 H D Chloride 96 Carbon Dioxide 23 Anion Gap 24 H BUN Creatinine Estim Creat Clear Calc Estimated GFR POC Glucose 224 H 122 H Random Glucose Estimat Average Glucose Hemoglobin A1c % Lactic Acid Calcium Magnesium Total Bilirubin Direct Bilirubin AST ALT Alkaline Phosphatase C-Reactive Protein Total Protein Albumin Hold Green Top See Note Random Vancomycin Blood Type Antibody Screen 04/08/24 04/08/24 04/08/24 10:57 16:21 17:51 WBC RBC Hgb POC Hgb (Calc) Hct POC Hct MCV MCH MCHC RDW Plt Count MPV Immature Gran % (Auto) Neut % (Auto) Lymph % (Auto) [place] % (Auto) Eos % (Auto) Baso % (Auto) Lymph # (Auto) [place] # (Auto) Eos # (Auto) Baso # (Auto) Abs Immat Gran (auto) Absolute Neuts (auto) Absolute Nucleated RBC Nucleated RBC % (auto) Smear Tech's Comments ESR PT INR POC Std Base Excess POC O2 Sat (Calc) POC ABG pO2 POC ABG Total CO2 POC Capillary pH POC Capillary pCO2 POC Cap HCO3 (Calc) POC Sodium Sodium POC Potassium Potassium Chloride Carbon Dioxide Anion Gap BUN Creatinine Estim Creat Clear Calc Estimated GFR POC Glucose 145 H 158 H 145 H Random Glucose Estimat Average Glucose Hemoglobin A1c % Lactic Acid Calcium Magnesium Total Bilirubin Direct Bilirubin AST ALT Alkaline Phosphatase C-Reactive Protein Total Protein Albumin Hold Green Top Random Vancomycin Blood Type Antibody Screen 04/08/24 04/08/24 04/09/24 18:59 20:04 06:34 WBC 18.3 H RBC 3.77 L Hgb 8.6 L POC Hgb (Calc) Hct 27.6 L POC Hct MCV 73.2 L MCH 22.8 L MCHC 31.2 RDW 16.0 Plt Count 362 MPV 12.4 Immature Gran % (Auto) Neut % (Auto) Lymph % (Auto) [place] % (Auto) Eos % (Auto) Baso % (Auto) Lymph # (Auto) [place] # (Auto) Eos # (Auto) Baso # (Auto) Abs Immat Gran (auto) Absolute Neuts (auto) Absolute Nucleated RBC 0.000 Nucleated RBC % (auto) 0.0 Smear Tech's Comments ESR PT INR POC Std Base Excess POC O2 Sat (Calc) POC ABG pO2 POC ABG Total CO2 POC Capillary pH POC Capillary pCO2 POC Cap HCO3 (Calc) POC Sodium Sodium POC Potassium Potassium Chloride Carbon Dioxide Anion Gap BUN Creatinine 4.72 H* Estim Creat Clear Calc 13.9 Estimated GFR 12 POC Glucose 189 H Random Glucose Estimat Average Glucose Hemoglobin A1c % Lactic Acid Calcium Magnesium Total Bilirubin Direct Bilirubin AST ALT Alkaline Phosphatase C-Reactive Protein Total Protein Albumin Hold Green Top Random Vancomycin 15.8 Blood Type Antibody Screen 04/09/24 04/09/24 04/09/24 07:01 11:16 13:29 WBC RBC Hgb POC Hgb (Calc) 9.9 L Hct POC Hct 29 L MCV MCH MCHC RDW Plt Count MPV Immature Gran % (Auto) Neut % (Auto) Lymph % (Auto) [place] % (Auto) Eos % (Auto) Baso % (Auto) Lymph # (Auto) [place] # (Auto) Eos # (Auto) Baso # (Auto) Abs Immat Gran (auto) Absolute Neuts (auto) Absolute Nucleated RBC Nucleated RBC % (auto) Smear Tech's Comments ESR PT INR POC Std Base Excess 4 H POC O2 Sat (Calc) 91 POC ABG pO2 61 L POC ABG Total CO2 30 H POC Capillary pH 7.40 POC Capillary pCO2 47 POC Cap HCO3 (Calc) 29 H POC Sodium 136 Sodium POC Potassium 4.7 Potassium Chloride Carbon Dioxide Anion Gap BUN Creatinine Estim Creat Clear Calc Estimated GFR POC Glucose 173 H 142 H 134 H Random Glucose Estimat Average Glucose Hemoglobin A1c % Lactic Acid Calcium Magnesium Total Bilirubin Direct Bilirubin AST ALT Alkaline Phosphatase C-Reactive Protein Total Protein Albumin Hold Green Top Random Vancomycin Blood Type Antibody Screen 04/09/24 04/09/24 04/10/24 16:19 20:43 07:22 WBC RBC Hgb POC Hgb (Calc) Hct POC Hct MCV MCH MCHC RDW Plt Count MPV Immature Gran % (Auto) Neut % (Auto) Lymph % (Auto) [place] % (Auto) Eos % (Auto) Baso % (Auto) Lymph # (Auto) [place] # (Auto) Eos # (Auto) Baso # (Auto) Abs Immat Gran (auto) Absolute Neuts (auto) Absolute Nucleated RBC Nucleated RBC % (auto) Smear Tech's Comments ESR PT INR POC Std Base Excess POC O2 Sat (Calc) POC ABG pO2 POC ABG Total CO2 POC Capillary pH POC Capillary pCO2 POC Cap HCO3 (Calc) POC Sodium Sodium POC Potassium Potassium Chloride Carbon Dioxide Anion Gap BUN Creatinine Estim Creat Clear Calc Estimated GFR POC Glucose 158 H 255 H 161 H Random Glucose Estimat Average Glucose Hemoglobin A1c % Lactic Acid Calcium Magnesium Total Bilirubin Direct Bilirubin AST ALT Alkaline Phosphatase C-Reactive Protein Total Protein Albumin Hold Green Top Random Vancomycin Blood Type Antibody Screen 04/10/24 04/10/24 04/10/24 10:49 18:29 21:16 WBC RBC Hgb POC Hgb (Calc) Hct POC Hct MCV MCH MCHC RDW Plt Count MPV Immature Gran % (Auto) Neut % (Auto) Lymph % (Auto) [place] % (Auto) Eos % (Auto) Baso % (Auto) Lymph # (Auto) [place] # (Auto) Eos # (Auto) Baso # (Auto) Abs Immat Gran (auto) Absolute Neuts (auto) Absolute Nucleated RBC Nucleated RBC % (auto) Smear Tech's Comments ESR PT INR POC Std Base Excess POC O2 Sat (Calc) POC ABG pO2 POC ABG Total CO2 POC Capillary pH POC Capillary pCO2 POC Cap HCO3 (Calc) POC Sodium Sodium POC Potassium Potassium Chloride Carbon Dioxide Anion Gap BUN Creatinine Estim Creat Clear Calc Estimated GFR POC Glucose 242 H 323 H Random Glucose Estimat Average Glucose Hemoglobin A1c % Lactic Acid Calcium Magnesium Total Bilirubin Direct Bilirubin AST ALT Alkaline Phosphatase C-Reactive Protein Total Protein Albumin Hold Green Top Random Vancomycin 11.3 L Blood Type Antibody Screen 04/11/24 04/11/24 04/11/24 06:34 07:29 10:49 WBC 16.6 H RBC 3.84 L Hgb 8.8 L POC Hgb (Calc) Hct 28.3 L POC Hct MCV 73.7 L MCH 22.9 L MCHC 31.1 RDW 16.4 H Plt Count 388 MPV 11.3 Immature Gran % (Auto) Neut % (Auto) Lymph % (Auto) [place] % (Auto) Eos % (Auto) Baso % (Auto) Lymph # (Auto) [place] # (Auto) Eos # (Auto) Baso # (Auto) Abs Immat Gran (auto) Absolute Neuts (auto) Absolute Nucleated RBC 0.000 Nucleated RBC % (auto) 0.0 Smear Tech's Comments ESR PT INR POC Std Base Excess POC O2 Sat (Calc) POC ABG pO2 POC ABG Total CO2 POC Capillary pH POC Capillary pCO2 POC Cap HCO3 (Calc) POC Sodium Sodium POC Potassium Potassium Chloride Carbon Dioxide Anion Gap BUN Creatinine Estim Creat Clear Calc Estimated GFR POC Glucose 317 H Random Glucose Estimat Average Glucose 166 Hemoglobin A1c % 7.4 H Lactic Acid Calcium Magnesium Total Bilirubin Direct Bilirubin AST ALT Alkaline Phosphatase C-Reactive Protein Total Protein Albumin Hold Green Top Random Vancomycin Blood Type A Positive Antibody Screen NEGATIVE 04/11/24 04/11/24 04/11/24 10:55 13:02 13:47 WBC RBC Hgb POC Hgb (Calc) 10.5 L Hct POC Hct 31 L MCV MCH MCHC RDW Plt Count MPV Immature Gran % (Auto) Neut % (Auto) Lymph % (Auto) [place] % (Auto) Eos % (Auto) Baso % (Auto) Lymph # (Auto) [place] # (Auto) Eos # (Auto) Baso # (Auto) Abs Immat Gran (auto) Absolute Neuts (auto) Absolute Nucleated RBC Nucleated RBC % (auto) Smear Tech's Comments ESR PT INR POC Std Base Excess 0 POC O2 Sat (Calc) 91 POC ABG pO2 63 L POC ABG Total CO2 27 POC Capillary pH 7.35 POC Capillary pCO2 46 POC Cap HCO3 (Calc) 26 POC Sodium 134 L Sodium POC Potassium 5.4 H Potassium Chloride Carbon Dioxide Anion Gap BUN Creatinine Estim Creat Clear Calc Estimated GFR POC Glucose 108 80 83 Random Glucose Estimat Average Glucose Hemoglobin A1c % Lactic Acid Calcium Magnesium Total Bilirubin Direct Bilirubin AST ALT Alkaline Phosphatase C-Reactive Protein Total Protein Albumin Hold Green Top Random Vancomycin Blood Type Antibody Screen Airway Mallampati Class: III TM Dist: >3cm Neck ROM: Full Loose/Missing/Broken Teeth: Yes (poor dentition - multiple missing teeth) Heart: S1S2 Lungs: Diminished bilaterally Assessment and Plan Assessment Anesthesia Assessment: Anesthesia Plan Discussed and Chart Reviewed Final Anesthetic Review Family History of Problems with Anesthesia: No History of Problems with Anesthesia: No NPO: Yes ASA Class: III Final Preanesthetic Review: No Changes in Pt Med Stat, Meds/Allgs Chart Reviewed, Consent Obtained/Reviewed (firestopper technician at bedside for translation) and Anes Risks/Benef Reviewed Patient Risk: Intermediate Procedure Risk: Intermediate Anesthetic Plan Anesthetic Plan: GA, Regional Block (right femoral and right sciatic nerve block) and Agree w/ Assess. and Plan Disposition: Standard PACU
--- NOTE | 2024-04-11 13:20 | P.PNNP_ITS ---
Subjective Subjective Date of Service: 04/11/24 Interval history: Events noted. All recent data reviewed. For BKA today Physical Exam 2 Vital Signs: Vital Signs: Last Vital Signs Temp 98.4 F 04/11/24 12:51 Pulse 68 04/11/24 12:51 Resp 18 04/11/24 12:51 BP 162/65 H 04/11/24 12:51 Pulse Ox 99 04/11/24 12:51 O2 Del Method Nasal Cannula 04/11/24 12:51 O2 Flow Rate 3 04/11/24 12:51 Oxygen Flow Rate 2 04/05/24 10:37 BMI result Body Mass Index 28.0 Const: General: no acute distress Eyes: EOM: EOMs intact bilaterally Neck: Neck: Yes supple Resp: Auscultation: diminished lung sounds Cardio: Rate: regular rate GI: Palpation (GI): Soft to palpation Objective Data Labs 04/11/24 06:34 04/08/24 18:59 Labs: Laboratory Results - last 24 hr 04/10/24 04/10/24 04/11/24 18:29 21:16 06:34 WBC 16.6 H RBC 3.84 L Hgb 8.8 L Hct 28.3 L MCV 73.7 L MCH 22.9 L MCHC 31.1 RDW 16.4 H Plt Count 388 MPV 11.3 Absolute Nucleated RBC 0.000 Nucleated RBC % (auto) 0.0 POC Glucose 323 H Estimat Average Glucose 166 Hemoglobin A1c % 7.4 H Random Vancomycin 11.3 L Blood Type Antibody Screen 04/11/24 04/11/24 04/11/24 07:29 10:49 10:55 WBC RBC Hgb Hct MCV MCH MCHC RDW Plt Count MPV Absolute Nucleated RBC Nucleated RBC % (auto) POC Glucose 317 H 108 Estimat Average Glucose Hemoglobin A1c % Random Vancomycin Blood Type A Positive Antibody Screen NEGATIVE 04/11/24 13:02 WBC RBC Hgb Hct MCV MCH MCHC RDW Plt Count MPV Absolute Nucleated RBC Nucleated RBC % (auto) POC Glucose 80 Estimat Average Glucose Hemoglobin A1c % Random Vancomycin Blood Type Antibody Screen Microbiology Microbiology Results: Microbiology 04/09/24 14:48 Foot Right Gram Stain - Final 04/09/24 14:48 Foot Right Routine Culture - Preliminary Staphylococcus species Enterococcus/Streptococcus sp 04/05/24 12:38 Blood - Venous Blood Culture - Final No growth after 5 days. 04/05/24 12:50 Blood - Venous Blood Culture - Final No growth after 5 days. Procedures Date of Service Date of Service: 04/11/24 Assessment & Plan Assessment and plan (1) ESRD needing dialysis: Status: Acute Plan HD 3x week; Due HD tomorrow Renal diet; Epogen for Anemia Concur with rest of medical management Progress Note: Quality Stroke Does the patient have a stroke diagnosis?: No
--- NOTE | 2024-04-11 13:36 | MHC.SHP ---
Pre-Procedural Eval Section A - 24 Hr Update-Section A only Date of Service: 04/11/24 The patient is an INPATIENT: Yes Changes since office visit: Yes Patient answered all questions The patient has been examined within 24 hours of the surgical procedure. The History & Physical has been completed within 30 days and I have reviewed it.: Yes Section B - Complete if H&P > 30 days Chief Complaint: Surgical wound infection Allergies: Allergies Allergy/AdvReac Type Severity Reaction Status Date / Time Iodinated Contrast Media Allergy Severe Facial Verified 04/09/24 13:05 [Contrast Dye] Swelling Plan I have reviewed the history and physical and performed a pertinent physical examination on my patient. No changes have occurred unless specified. Time Spent With Patient Time: Total time managing care of this patient today ____ minutes.
[2024-04-11 13:51] LABS: Base Excess Bedside Calculated 0 mmol/L (-3-3); Glucose, i-STAT 83 mg/dL (60-115); HCO3 Bedside Calculated 26 mmol/L (22-26); Hematocrit Bedside 31 %PCV (42-52); Hemoglobin Bedside 10.5 g/dL (14.0-18.0); Potassium Bedside 5.4 mmol/L (3.3-5.1); SO2 Bedside Calculated 91 %; Sodium Bedside 134 mmol/L (135-145); TCO2 Bedside 27 mmol/L (24-29); pCO2 Bedside 46 mmhg (35-48); pH Bedside 7.35 (7.35-7.45); pO2 Bedside 63 mmhg (83-108)
[2024-04-11 14:43] LABS: Glucose, Whole Blood 191 mg/dL (60-115)
--- NOTE | 2024-04-11 15:01 | W.PM.OPN ---
Operative Note Operative Note Date of Service: 04/11/24 Narrative: Operative note by [facility] Preoperative diagnosis: 1. Ischemic right lower extremity 2. Diabetic foot ulcer Postoperative diagnosis: Same Procedure: 1. Right Leg below-knee amputation 2. Myodesis Surgeon:Baltazar Cannon M.D. Radiator Core Tester: Delfino Anesthesia: General Specimens: One Drains: None Estimated blood loss:100 ml Indications: 68-year-old diabetic gentleman with end-stage renal disease had a prior transmetatarsal amputation was nonhealing on subsequent debridement it went down to bone and then the flap was nonhealing. He now presents for below-knee amputation. All of this was discussed with the patient and the patient's family including his 2 sons prior to the operation. The patient has signed the informed consent after reviewing risks, complications, benefits, and alternatives previously discussed with the patient. The patient was given the opportunity to ask any additional questions or voice any concerns. All questions were answered to the patient's satisfaction. Procedure in detail: The patient was brought to the operating room prior to which a time-out was called for patient identification and site verification. The patient was placed in a supine position. The right lower extremity was prepped and draped in the standard surgical fashion. The intended incision site was marked. The anterior aspect of the incision was made approximately 10 cm below the right tibial tuberosity. The incision was carried through the fascia. The anterior compartment muscles were divided using electrocautery dissection. The tibia and fibula were cleared. Periosteal elevator was used to clear the periosteum from the tibia. The tibia was transected with a power reciprocating saw. This was done in a reverse hockey stick shaped cut. The fibula was transected approximately 2 in above the tibial transection site once again with a reciprocating saw. The amputation was then completed using electrocautery to create the posterior flap. The flap was debulked using electrocautery and Metzenbaum scissors. The nerve was placed on traction and ligated and divided sharply. The anterior tibial posterior tibial and peroneal vessels were or identified and tied off with 2-0 silk ties. We then performed a myodesis. In the tibia on the medial and lateral aspect using a drill holes were then created. Using 2-0 Polysorb, the muscle was then buttressed to the tibia. The wound was then closed using 2-0 poly Sorb. This was used to bring together the fascia from the posterior flap to the anterior cut. We then reapproximated the superficial layer with 3-0 poly Sorb suture. Finally skin was closed using 2-0 nylon in a mattress fashion. In addition we used skin clips. The stump was then dressed with Xeroform, Kerlix and an Javy wrap. The patient tolerated the procedure well. They were brought to recovery with stable vitals. At the end the case sponge needle instrument counts were correct x2. This note is constructed using voice recognition software. While every effort has been made to ensure accuracy, emergency room orderly errors may have been included. Thank you for allowing me to participate in the care of your patient. Yours sincerely, Baltazar Cannon MD, FACS, R.P.V.I.
[2024-04-11 16:29] LABS: Glucose, Whole Blood 122 mg/dL (60-115)
--- NOTE | 2024-04-11 17:35 | HO.PM.IMPN ---
Subjective Subjective Date of Service: 04/11/24 Interval History: right tma pain Review of Systems going for bka today has some pain moves ext better Physical Exam Vital Signs: Vital Signs: Last Vital Signs Temp 97.5 F 04/11/24 16:00 Pulse 65 04/11/24 16:00 Resp 20 04/11/24 16:00 BP 148/68 H 04/11/24 16:00 Pulse Ox 90 L 04/11/24 16:00 O2 Del Method Room Air 04/11/24 16:00 O2 Flow Rate 3 04/11/24 15:38 Oxygen Flow Rate 2 04/05/24 10:37 BMI result Body Mass Index 28.0 Neck supple no JVD. Lungs entry equal no rales. Heart S1-S2 heard no gallop or rub. Abdomen soft nontender. skin:Right TMA site: similar to yesterday Neuro alert awake oriented. No asterixis. Extremities no edema. Objective Data Active Medications Acetaminophen (Acetaminophen 325 Mg Tablet) 650 mg PO Q6H PRN PRN Reason: Pain, Mild 1-3,fever,headache Last Admin: 04/07/24 19:56 Dose: 650 mg Documented By: SERA Al Hydroxide/Mg Hydroxide (Magnesium Hydrox/Alum Hydrox 30 Ml Oral.Susp) 30 ml PO Q4H PRN PRN Reason: Heartburn Albuterol Sulfate (Albuterol Sulfate 90 Mcg 8 Gm Inhaler) 2 puff INHALE Q4H PRN PRN Reason: Shortness Of Breath Albuterol/Ipratropium (Albuterol/Iprat 2.5/0.5mg 3 Ml Ampul.Neb) 3 ml INHALE QID PRN PRN Reason: Wheezing Allopurinol (Allopurinol 100 Mg Tablet) 100 mg PO MOWEFR@1600 [facility] Last Admin: 04/10/24 18:18 Dose: 100 mg Documented By: RAY Aspirin (Aspirin Enteric Coated 81 Mg Tablet.) 81 mg PO MOWEFR@1600 [facility] Last Admin: 04/10/24 18:17 Dose: 81 mg Documented By: RAY Aspirin (Aspirin Enteric Coated 81 Mg Tablet.) 81 mg PO SUTUTHSA@09 [facility] Last Admin: 04/11/24 10:36 Dose: 81 mg Documented By: RAY Atorvastatin Calcium (Atorvastatin Calcium 40 Mg Tablet) 40 mg PO MOWEFR@1600 [facility] Last Admin: 04/10/24 18:17 Dose: 40 mg Documented By: RAY Atorvastatin Calcium (Atorvastatin Calcium 40 Mg Tablet) 40 mg PO SUTUTHSA@0900 [facility] Last Admin: 04/11/24 07:59 Dose: 40 mg Documented By: RAY Bisacodyl (Bisacodyl 10 Mg Supp.Rect) 10 mg RI DAILY PRN PRN Reason: Constipation Calcium Carbonate (Calcium Carbonate 750 Mg Tab.Chew) 750 mg PO Q4H PRN PRN Reason: Heartburn Carvedilol (Carvedilol 6.25 Mg Tablet) 6.25 mg PO BID [facility]; Protocol Last Admin: 04/11/24 07:38 Dose: 6.25 mg Documented By: RAY Dextrose (Dextrose 50 % 25 Gm/50 Ml Syringe) 25 gm IVPUSH Q15M PRN; Protocol PRN Reason: per Hypoglycemia Standing Ord. Doxazosin Mesylate (Doxazosin Mesylate 2 Mg Tablet) 4 mg PO BEDTIME [facility]; Protocol Last Admin: 04/10/24 21:25 Dose: 4 mg Documented By: PHONG Epoetin Keegan-epbx (Epoetin Keegan-Epbx 10,000 Unit/Ml Vial) 10,000 unit SUBCUT MoWeFr@1645 [facility] Last Admin: 04/10/24 18:30 Dose: Not Given Documented By: RAY Non-Admin Reason: Med Not Available Fluticasone Propionate (Fluticasone Propionate Nasal 16 Gm Granton) 1 spray NOSTRIL-B BID [facility] Last Admin: 04/11/24 08:02 Dose: 1 spray Documented By: RAY Fluticasone/Umeclidinium/Vilanterol (Fluticasone/Umeclidinium/Vilanterol 100/62.5/25 Blst.W.Dev) 1 puff INHALE RDAILY [facility] Last Admin: 04/11/24 08:37 Dose: 1 puff Documented By: EMELIA Furosemide (Furosemide 40 Mg Tablet) 80 mg PO MOWEFR@1600 [facility]; Protocol Last Admin: 04/10/24 18:17 Dose: 80 mg Documented By: RAY Furosemide (Furosemide 40 Mg Tablet) 80 mg PO SUTUTHSA@0900 [facility]; Protocol Last Admin: 04/11/24 07:58 Dose: 80 mg Documented By: RAY Glucose (Glucose Gel 15 Gm Gel..Gram.) 15 gm PO Q15M PRN; Protocol PRN Reason: per Hypoglycemia Standing Ord. Haloperidol Lactate (Haloperidol Lactate 5 Mg/Ml Vial) 0.5 mg IVPUSH ONCE PRN PRN Reason: intractable nausea Stop: 04/11/24 20:13 Heparin Sodium (Porcine) (Heparin Sodium,Porcine 5,000 Unit/Ml Vial) 5,000 unit SUBCUT BID [facility] Last Admin: 04/11/24 16:37 Dose: Not Given Documented By: RAY Non-Admin Reason: Physician Approved Hydralazine HCl (Hydralazine Hcl 25 Mg Tablet) 25 mg PO MOWEFR@1600 [facility]; Protocol Last Admin: 04/10/24 18:18 Dose: 25 mg Documented By: RAY Hydralazine HCl (Hydralazine Hcl 25 Mg Tablet) 25 mg PO SUTUTHSA@09,15,21 [facility]; Protocol Last Admin: 04/11/24 16:13 Dose: 25 mg Documented By: RAY Hydromorphone HCl (Hydromorphone Hcl 0.5 Mg/0.5 Ml Syringe) 0.5 mg IVPUSH Q4H PRN; Protocol PRN Reason: Pain, Severe (Pain Scale 7-10) Last Admin: 04/11/24 12:14 Dose: 0.5 mg Documented By: RAY Hydromorphone HCl (Hydromorphone Hcl 0.5 Mg/0.5 Ml Syringe) 0.25 mg IVPUSH Q5M PRN PRN Reason: Pain, Moderate to Severe (Pain Scale 4-10) Stop: 04/11/24 20:13 Piperacillin Sod/Tazobactam (Sod 2.25 gm/ Sodium Chloride) 50 mls @ 100 mls/hr IV Q8H [facility] Last Infusion: 04/11/24 17:03 Dose: Infused Documented By: RAY Vancomycin HCl 500 mg/ Sodium (Chloride) 110 mls @ 110 mls/hr IV ONCE ONE Stop: 04/05/24 15:29 Insulin Glargine (Insulin Glargine,Hum.Rec.Anlog 100 Unit/Ml 10 Ml Vial) 10 unit SUBCUT BEDTIME [facility] Last Admin: 04/10/24 21:24 Dose: 10 unit Documented By: PHONG Insulin Human Lispro (Insulin Lispro 100 Unit/Ml 3 Ml Vial) 0 unit SUBCUT QIDACHS [facility]; Protocol Last Admin: 04/11/24 16:33 Dose: Not Given Documented By: RAY Non-Admin Reason: No Insulin Coverage Losartan Potassium (Losartan Potassium 25 Mg Tablet) 25 mg PO MOWEFR@1600 [facility]; Protocol Last Admin: 04/10/24 18:17 Dose: 25 mg Documented By: RAY Losartan Potassium (Losartan Potassium 25 Mg Tablet) 25 mg PO SUTUTHSA@0900 [facility]; Protocol Last Admin: 04/11/24 08:03 Dose: 25 mg Documented By: RAY Magnesium Hydroxide (Milk Of Magnesia 30 Ml Oral.Susp) 30 ml PO DAILY PRN PRN Reason: Constipation Last Admin: 04/09/24 21:34 Dose: 30 ml Documented By: EVY Melatonin (Melatonin 3 Mg Tablet) 6 mg PO BEDTIME PRN PRN Reason: Insomnia Naloxone HCl (Naloxone Hcl 0.4 Mg/Ml Vial) 0.04 mg IVPUSH Q5M PRN PRN Reason: Excessive sedation or RR < 8 Non-Formulary Medication (Sucroferric Oxyhydroxide [Velphoro]) 500 mg PO TID [facility] Omeprazole (Omeprazole 20 Mg Capsule.) 20 mg PO DAILY@0630 [facility] Last Admin: 04/11/24 05:21 Dose: 20 mg Documented By: VERÓNICA Ondansetron HCl (Ondansetron Hcl 4 Mg/2 Ml Vial) 4 mg IVPUSH Q8H PRN PRN Reason: Nausea and Vomiting Oxycodone HCl (Oxycodone Hcl Immed Release 5 Mg Tablet) 5 mg PO Q4H PRN PRN Reason: Pain, Moderate(Pain Scale 4-6) Pharmacy Consult (Consult Rx Vancomycin Dosing) 1 each MISCELLANE DAILY PRN PRN Reason: Consult order Polyethylene Glycol (Polyethylene Glycol 3350 17 Gm Powd.Pack) 17 gm PO DAILY PRN PRN Reason: Constipation Pregabalin (Pregabalin 75 Mg Capsule) 75 mg PO MOWEFR@1600 [facility] Last Admin: 04/10/24 18:17 Dose: 75 mg Documented By: RAY Pregabalin (Pregabalin 75 Mg Capsule) 75 mg PO SUTUTHSA@,, [facility] Last Admin: 04/11/24 16:13 Dose: 75 mg Documented By: RAY Senna (Sennosides 8.6 Mg Tablet) 8.6 mg PO DAILY PRN PRN Reason: Constipation Sodium Chloride (0.9 % Sodium Chloride Flush 3 Ml Syringe) 3 ml IVFLUSH QSHIFT [facility] Last Admin: 04/11/24 16:32 Dose: Not Given Documented By: ARY Non-Admin Reason: IV Running Labs 04/11/24 06:34 04/08/24 18:59 Labs: Laboratory Results - last 24 hr 04/10/24 04/10/24 04/10/24 17:06 18:29 21:16 POC Hgb (Calc) POC Hct MCV MCH MCHC RDW Plt Count MPV Absolute Nucleated RBC Nucleated RBC % (auto) POC Std Base Excess POC O2 Sat (Calc) POC ABG pO2 POC ABG Total CO2 POC Capillary pH POC Capillary pCO2 POC Cap HCO3 (Calc) POC Sodium POC Potassium POC Glucose 191 H 323 H Estimat Average Glucose Hemoglobin A1c % Random Vancomycin 11.3 L Blood Type Antibody Screen 04/11/24 04/11/24 04/11/24 06:34 07:29 10:49 POC Hgb (Calc) POC Hct MCV 73.7 L MCH 22.9 L MCHC 31.1 RDW 16.4 H Plt Count 388 MPV 11.3 Absolute Nucleated RBC 0.000 Nucleated RBC % (auto) 0.0 POC Std Base Excess POC O2 Sat (Calc) POC ABG pO2 POC ABG Total CO2 POC Capillary pH POC Capillary pCO2 POC Cap HCO3 (Calc) POC Sodium POC Potassium POC Glucose 317 H Estimat Average Glucose 166 Hemoglobin A1c % 7.4 H Random Vancomycin Blood Type A Positive Antibody Screen NEGATIVE 04/11/24 04/11/24 04/11/24 10:55 13:02 13:47 POC Hgb (Calc) 10.5 L POC Hct 31 L MCV MCH MCHC RDW Plt Count MPV Absolute Nucleated RBC Nucleated RBC % (auto) POC Std Base Excess 0 POC O2 Sat (Calc) 91 POC ABG pO2 63 L POC ABG Total CO2 27 POC Capillary pH 7.35 POC Capillary pCO2 46 POC Cap HCO3 (Calc) 26 POC Sodium 134 L POC Potassium 5.4 H POC Glucose 108 80 83 Estimat Average Glucose Hemoglobin A1c % Random Vancomycin Blood Type Antibody Screen 04/11/24 16:25 POC Hgb (Calc) POC Hct MCV MCH MCHC RDW Plt Count MPV Absolute Nucleated RBC Nucleated RBC % (auto) POC Std Base Excess POC O2 Sat (Calc) POC ABG pO2 POC ABG Total CO2 POC Capillary pH POC Capillary pCO2 POC Cap HCO3 (Calc) POC Sodium POC Potassium POC Glucose 122 H Estimat Average Glucose Hemoglobin A1c % Random Vancomycin Blood Type Antibody Screen Microbiology Microbiology Results: Microbiology 04/09/24 14:48 Gram Stain - Final Foot Right Routine Culture - Preliminary Staphylococcus species Enterococcus/Streptococcus sp 04/05/24 12:38 Blood Culture - Final Blood - Venous No growth after 5 days. 04/05/24 12:50 Blood Culture - Final Blood - Venous No growth after 5 days. Assessment and Plan (1) Cellulitis of right foot: Status: Acute (2) ESRD on dialysis: Status: Chronic (3) ESRD (end stage renal disease): Status: Acute (4) Type 2 diabetes mellitus: Status: Chronic Plan 68-year-old [place]yan-speaking male with a PMH significant for?ESRD on HD M/W/F last dialyzed earlier today, insulin-dependent type 2 diabetes, peripheral vascular disease, HFrEF (EF35%), HTN, HLD, chronically on 2L home O2, GERD, and ROBERT on CPAP with recent ampuation and here with post amputation complications of open,draning and likely infected woud given high WBC, and elevated ESR, he doesn't meet sepsis critieria Right TMA site wound, concern for infection and likely failed ampuation, WBC 27-->22-->20 Vascular surgery: OR for debridment 04/09/24, possible he will need amputation increased dry eschar/gangrene around the flap and incision site. plan: will need bka tomorrow oxycodone for pain 4-6, and dilaudid for 7-10,continue Vanco and zosyn 04/05/24. weakness right upper ext: as per family seems from at least 1-2 week duration,somewhat increasing slowly ct head negative plan: neurochecks neurology eval. Hypertension, BPs variable, possible pain related continue home meds (hydralazine, losartan, coreg, lasix) ESRD on HD M/W/F Last dialyzed earlier 04/05/24 Nephro consult Insulin-dependent type 2 diabetes Sliding-scale insulin, Lantus at reduce dose of 10 at hs, FBS 114 Diabetic diet HLD/PAD Continue aspirin, statin Gout Continue allopurinol GERD PPI Full Code DVT Prophylaxis: Heparin ongoing need for hospitalization of at least two nights for treatment of?right TMA site failed amputation, infection and need for IV Abx and likely surgical intervention for bka -tma Flap is dry gangrene/eschar. surgery d/w family in detail Quality Stroke Does the patient have a stroke diagnosis?: No VTE Prior VTE?: No VTE Risk Level:: Medical - moderate - high VTE Device Contraindication: Treatment Not Indicated VTE Drug Contraindication: N/A - Med Ordered
[2024-04-11 20:55] LABS: Glucose, Whole Blood 397 mg/dL (60-115)
[2024-04-11] MEDS: Doxazosin Mesylate 2 MG TABLET 4 MG PO (21:05)
[2024-04-11] MEDS: Insulin Glargine,Hum.rec.anlog 100 UNIT/ML 10 ML VIAL 10 UNIT SUBCUT (21:06)
[2024-04-12] MEDS: 0.9 % Sodium Chloride Flush 3 ML SYRINGE IVFLUSH ×4 (01:27→20:11)
[2024-04-12 02:56] VITALS: BP 140/63; PULSE 59; RESP 20; TEMP 36.3; O2SAT 92
--- NOTE | 2024-04-12 03:25 | PC.NURSE ---
Assumed care of patient at 23:30. Please see shift assessments, tasks, and MAR for full details. Bed alarm on and safety measures in place. Call montilla within reach and educated on use. Handoff report given to oncoming RN assuming care at ~02:00.
[2024-04-12] MEDS: Piperacillin Sodium/Tazobactam 2.25 GM in 0.9 % Sodium Chloride 50 ML IV ×3 (04:30→22:00)
[2024-04-12] MEDS: Omeprazole 20 MG CAPSULE.DR PO (05:49)
--- NOTE | 2024-04-12 06:39 | PC.NURSE ---
Assumed care at 0300, alert and oriented, denies any pain, post right BKA noted with DONNELL wrap dressing , dime size blood stain drainage noted, dressing reinforced, repositioned on bed, right chest permacath dressing intact, slept at intervals
[2024-04-12 07:37] LABS: Glucose, Whole Blood 529 mg/dL (60-115)
[2024-04-12] MEDS: carvediloL 6.25 MG TABLET PO ×2 (07:59→20:41)
[2024-04-12] MEDS: Insulin Lispro 100 UNIT/ML 3 ML VIAL SUBCUT ×5 (07:59→21:27)
[2024-04-12] MEDS: Heparin Sodium,Porcine 5,000 UNIT/ML VIAL 5000 UNIT SUBCUT ×2 (07:59→20:11)
[2024-04-12 08:00] VITALS: BP 120/58; PULSE 56; RESP 20; TEMP 36.2; O2SAT 100
[2024-04-12] MEDS: Insulin Glargine,Hum.rec.anlog 100 UNIT/ML 10 ML VIAL 10 UNIT SUBCUT ×2 (08:37→21:28)
[2024-04-12 09:33] LABS: Anion Gap 22 (12-20); Blood Urea Nitrogen 88 mg/dL (9-16); Calcium 9.2 mg/dL (8.4-10.2); Carbon Dioxide 20 mmol/L (22-29); Chloride 96 mmol/L (96-108); Sodium 131 mmol/L (135-145)
[2024-04-12 09:38] LABS: Creatinine Clr Calc Pharmacy 8.3; Estimated Glomerular Filt Rate 7; Glucose Random 607 mg/dL (60-115); Potassium 6.5 mmol/L (3.3-5.1)
--- NOTE | 2024-04-12 10:42 | MHC.CM.PN ---
Per ROUNDS discussion, Patient is not yet medically cleared for dc (BKA yesterday & BS in the 600's); STR appears likely and CM will continue to follow.
[2024-04-12 11:11] VITALS: BP 107/51; PULSE 58; RESP 20; TEMP 36.1; O2SAT 100
[2024-04-12 11:20] LABS: Glucose, Whole Blood 499 mg/dL (60-115)
[2024-04-12] MEDS: Insulin Lispro 100 UNIT/ML 3 ML VIAL 6 UNIT SUBCUT (12:15)
[2024-04-12 12:17] LABS: Glucose, Whole Blood 509 mg/dL (60-115)
--- NOTE | 2024-04-12 13:18 | HO.VASCPN ---
Subjective Subjective Date of Service: 04/12/24 Interval history: Beau is doing ok this morning. He appears very sleepy. He denies any pain at the BKA site today. He is going to be heading to dialysis this afternoon. His family brought some takeout food for him last night and he has been having hyperglycemia today. Physical Exam Vital Signs: Vital Signs: Last Vital Signs Temp 97.0 F 04/12/24 11:11 Pulse 58 04/12/24 11:11 Resp 20 04/12/24 11:11 BP 107/51 L 04/12/24 11:11 Pulse Ox 100 04/12/24 11:11 O2 Del Method Nasal Cannula 04/12/24 11:11 O2 Flow Rate 2 04/12/24 11:11 Oxygen Flow Rate 2 04/05/24 10:37 BMI result Body Mass Index 28.0 Const: General: comfortable and no acute distress Orientation/consciousness: patient oriented x3 HEENT: Ears: hearing grossly normal bilaterally Resp: Effort & Inspection: normal respiratory effort and able to speak in complete sentences Auscultation: clear to auscultation bilaterally Cardio: Rate: regular rate Rhythm: regular rhythm Heart sounds: S1 normal heart sound present and S2 normal heart sound present Bruits: no abdominal aortic bruits, no carotid bruits, no femoral bruits and no renal bruits GI: Palpation (GI): No Abdominal aortic bruit present Neuro: General: patient oriented x3 Cranial nerves: Yes CN's II-XII intact bilaterally Extrem: Other: Right BKA site: incision is intact. There is a small amount of oozing blood noted in the middle of the incision site. Dried and fresh blood noted on the dressing. No erythema noted around the incision site. Progress Note: A&P Assessment and plan (1) Hx of right BKA: Status: Acute Assessment and Plan: Beau is postop day 1 from a right BKA. He states he is feeling better today and endorses no pain. However, he is very sleepy and has been found to have hyperglycemia all day. His numbers have been staying in the foreign 500 range, the hospitalist is working on lowering his blood glucose levels. He is also due for dialysis this afternoon as well. We did do the dressing change today, and there was some new an older blood noted on the dressing. We did find some oozing from the middle of the incision site, that was easily stopped with light pressure. We did apply Xeroform, 4x4s (gauze sponges and fluffy 4x4s) and then wrapped the site with Kerlix wrap. I discussed with the nurse that if there is excessive bleeding, to please let us know about it. We can have the dressing change daily. We will continue to monitor. If there are any questions or concerns, please do not hesitate to reach out to us. Time Spent With Patient Time: Total time managing care of this patient today ____ minutes. Procedures Date of Service Date of Service: 04/12/24 Quality Stroke Does the patient have a stroke diagnosis?: No VTE Prior VTE?: No VTE Risk Level:: Medical - moderate - high VTE Device Contraindication: Treatment Not Indicated VTE Drug Contraindication: N/A - Med Ordered
[2024-04-12] MEDS: HYDROmorphone HCl 0.5 MG/0.5 ML SYRINGE IVPUSH ×4 (13:31→23:25)
--- NOTE | 2024-04-12 14:14 | HO.POSTANES ---
Post Anesthesia Evaluation Post Anesthesia Evaluation Date of Service: 04/12/24 Vital Signs: Vital Signs Temp Pulse Resp BP Pulse Ox O2 Del Method O2 Flow Rate 04/12/24 11:11 97.0 F 58 20 107/51 L 100 Nasal Cannula 2 04/12/24 08:00 97.2 F 56 20 120/58 L 100 Nasal Cannula 2 04/12/24 02:56 97.3 F 59 20 140/63 H 92 Nasal Cannula 2 Anesthesia: Nerve Block (right femoral and sciatic nerve blocks) and General LMA Mental Status: Awake Pain Control: Satisfactory Nausea/Vomiting: None Hydration: Adequate Anesthesia-Related Issues: No Anes. Related Issues
[2024-04-12 14:40] LABS: Glucose, Whole Blood 285 mg/dL (60-115)
--- NOTE | 2024-04-12 16:05 | HO.PM.IMPN ---
Subjective Subjective Date of Service: 04/12/24 Interval History: dm with hyperglycemia esrd Review of Systems s/p bka denies any chest pain or sob or nausea or vomiting or abd pain . diet noncomplance ( eating outside food ) Physical Exam Vital Signs: Vital Signs: Last Vital Signs Temp 97.0 F 04/12/24 11:11 Pulse 58 04/12/24 11:11 Resp 20 04/12/24 11:11 BP 107/51 L 04/12/24 11:11 Pulse Ox 100 04/12/24 11:11 O2 Del Method Nasal Cannula 04/12/24 11:11 O2 Flow Rate 2 04/12/24 11:11 Oxygen Flow Rate 2 04/05/24 10:37 BMI result Body Mass Index 28.0 Neck supple no JVD. Lungs entry equal no rales. Heart S1-S2 heard no gallop or rub. Abdomen soft nontender. skin:has bka Neuro alert awake oriented. No asterixis. Extremities no edema. Objective Data Active Medications Acetaminophen (Acetaminophen 325 Mg Tablet) 650 mg PO Q6H PRN PRN Reason: Pain, Mild 1-3,fever,headache Last Admin: 04/07/24 19:56 Dose: 650 mg Documented By: SERA Al Hydroxide/Mg Hydroxide (Magnesium Hydrox/Alum Hydrox 30 Ml Oral.Susp) 30 ml PO Q4H PRN PRN Reason: Heartburn Albuterol Sulfate (Albuterol Sulfate 90 Mcg 8 Gm Inhaler) 2 puff INHALE Q4H PRN PRN Reason: Shortness Of Breath Albuterol/Ipratropium (Albuterol/Iprat 2.5/0.5mg 3 Ml Ampul.Neb) 3 ml INHALE QID PRN PRN Reason: Wheezing Allopurinol (Allopurinol 100 Mg Tablet) 100 mg PO MOWEFR@1600 [facility] Last Admin: 04/10/24 18:18 Dose: 100 mg Documented By: RAY Aspirin (Aspirin Enteric Coated 81 Mg Tablet.) 81 mg PO MOWEFR@1600 [facility] Last Admin: 04/10/24 18:17 Dose: 81 mg Documented By: RAY Aspirin (Aspirin Enteric Coated 81 Mg Tablet.) 81 mg PO SUTUTHSA@09 [facility] Last Admin: 04/11/24 10:36 Dose: 81 mg Documented By: RAY Atorvastatin Calcium (Atorvastatin Calcium 40 Mg Tablet) 40 mg PO MOWEFR@1600 [facility] Last Admin: 04/10/24 18:17 Dose: 40 mg Documented By: RAY Atorvastatin Calcium (Atorvastatin Calcium 40 Mg Tablet) 40 mg PO SUTUTHSA@0900 [facility] Last Admin: 04/11/24 07:59 Dose: 40 mg Documented By: RAY Bisacodyl (Bisacodyl 10 Mg Supp.Rect) 10 mg [place] DAILY PRN PRN Reason: Constipation Calcium Carbonate (Calcium Carbonate 750 Mg Tab.Chew) 750 mg PO Q4H PRN PRN Reason: Heartburn Carvedilol (Carvedilol 6.25 Mg Tablet) 6.25 mg PO BID [facility]; Protocol Last Admin: 04/12/24 07:59 Dose: 6.25 mg Documented By: ROXANNE Dextrose (Dextrose 50 % 25 Gm/50 Ml Syringe) 25 gm IVPUSH Q15M PRN; Protocol PRN Reason: per Hypoglycemia Standing Ord. Doxazosin Mesylate (Doxazosin Mesylate 2 Mg Tablet) 4 mg PO BEDTIME [facility]; Protocol Last Admin: 04/11/24 21:05 Dose: 4 mg Documented By: MIHAI Epoetin Keegan-epbx (Epoetin Keegan-Epbx 10,000 Unit/Ml Vial) 10,000 unit SUBCUT MoWeFr@1645 [facility] Last Admin: 04/10/24 18:30 Dose: Not Given Documented By: RAY Non-Admin Reason: Med Not Available Fluticasone Propionate (Fluticasone Propionate Nasal 16 Gm [place]) 1 spray NOSTRIL-B BID [facility] Last Admin: 04/12/24 08:03 Dose: Not Given Documented By: ROXANNE Non-Admin Reason: Patient Refused Fluticasone/Umeclidinium/Vilanterol (Fluticasone/Umeclidinium/Vilanterol 100/62.5/25 Blst.W.Dev) 1 puff INHALE RDAILY [facility] Last Admin: 04/12/24 07:34 Dose: Not Given Documented By: SHANTEL Non-Admin Reason: Patient Refused Furosemide (Furosemide 40 Mg Tablet) 80 mg PO MOWEFR@1600 [facility]; Protocol Last Admin: 04/10/24 18:17 Dose: 80 mg Documented By: RAY Furosemide (Furosemide 40 Mg Tablet) 80 mg PO SUTUTHSA@0900 [facility]; Protocol Last Admin: 04/11/24 07:58 Dose: 80 mg Documented By: RAY Glucose (Glucose Gel 15 Gm Gel..Gram.) 15 gm PO Q15M PRN; Protocol PRN Reason: per Hypoglycemia Standing Ord. Heparin Sodium (Porcine) (Heparin Sodium,Porcine 5,000 Unit/Ml Vial) 5,000 unit SUBCUT BID [facility] Last Admin: 04/12/24 07:59 Dose: 5,000 unit Documented By: ROXANNE Hydralazine HCl (Hydralazine Hcl 25 Mg Tablet) 25 mg PO MOWEFR@1600 [facility]; Protocol Last Admin: 04/10/24 18:18 Dose: 25 mg Documented By: RAY Hydralazine HCl (Hydralazine Hcl 25 Mg Tablet) 25 mg PO SUTUTHSA@09,15,21 [facility]; Protocol Last Admin: 04/11/24 21:18 Dose: 25 mg Documented By: MIHAI Hydromorphone HCl (Hydromorphone Hcl 0.5 Mg/0.5 Ml Syringe) 0.5 mg IVPUSH Q4H PRN; Protocol PRN Reason: Pain, Severe (Pain Scale 7-10) Last Admin: 04/12/24 13:31 Dose: 0.5 mg Documented By: ROXANNE Piperacillin Sod/Tazobactam (Sod 2.25 gm/ Sodium Chloride) 50 mls @ 100 mls/hr IV Q8H [facility] Last Infusion: 04/12/24 05:17 Dose: Infused Documented By: TEAGAN Vancomycin HCl 500 mg/ Sodium (Chloride) 110 mls @ 110 mls/hr IV ONCE ONE Stop: 04/05/24 15:29 Insulin Glargine (Insulin Glargine,Hum.Rec.Anlog 100 Unit/Ml 10 Ml Vial) 10 unit SUBCUT BEDTIME [facility] Last Admin: 04/11/24 21:06 Dose: 10 unit Documented By: MIHAI Insulin Human Lispro (Insulin Lispro 100 Unit/Ml 3 Ml Vial) 0 unit SUBCUT QIDACHS [facility]; Protocol Last Admin: 04/12/24 12:17 Dose: 10 unit Documented By: ROXANNE Losartan Potassium (Losartan Potassium 25 Mg Tablet) 25 mg PO MOWEFR@1600 [facility]; Protocol Last Admin: 04/10/24 18:17 Dose: 25 mg Documented By: RAY Losartan Potassium (Losartan Potassium 25 Mg Tablet) 25 mg PO SUTUTHSA@0900 [facility]; Protocol Last Admin: 04/11/24 08:03 Dose: 25 mg Documented By: RAY Magnesium Hydroxide (Milk Of Magnesia 30 Ml Oral.Susp) 30 ml PO DAILY PRN PRN Reason: Constipation Last Admin: 04/09/24 21:34 Dose: 30 ml Documented By: YAKOV-JENNIFER Melatonin (Melatonin 3 Mg Tablet) 6 mg PO BEDTIME PRN PRN Reason: Insomnia Naloxone HCl (Naloxone Hcl 0.4 Mg/Ml Vial) 0.04 mg IVPUSH Q5M PRN PRN Reason: Excessive sedation or RR < 8 Non-Formulary Medication (Sucroferric Oxyhydroxide [Velphoro]) 500 mg PO TID [facility] Omeprazole (Omeprazole 20 Mg Capsule.) 20 mg PO DAILY@0630 [facility] Last Admin: 04/12/24 05:49 Dose: 20 mg Documented By: TEAGAN Ondansetron HCl (Ondansetron Hcl 4 Mg/2 Ml Vial) 4 mg IVPUSH Q8H PRN PRN Reason: Nausea and Vomiting Oxycodone HCl (Oxycodone Hcl Immed Release 5 Mg Tablet) 5 mg PO Q4H PRN PRN Reason: Pain, Moderate(Pain Scale 4-6) Pharmacy Consult (Consult Rx Vancomycin Dosing) 1 each MISCELLANE DAILY PRN PRN Reason: Consult order Polyethylene Glycol (Polyethylene Glycol 3350 17 Gm Powd.Pack) 17 gm PO DAILY PRN PRN Reason: Constipation Pregabalin (Pregabalin 75 Mg Capsule) 75 mg PO MOWEFR@1600 [facility] Last Admin: 04/10/24 18:17 Dose: 75 mg Documented By: RAY Pregabalin (Pregabalin 75 Mg Capsule) 75 mg PO SUTUTHSA@09,15,21 [facility] Last Admin: 04/11/24 21:18 Dose: 75 mg Documented By: MIHAI Senna (Sennosides 8.6 Mg Tablet) 8.6 mg PO DAILY PRN PRN Reason: Constipation Sodium Chloride (0.9 % Sodium Chloride Flush 3 Ml Syringe) 3 ml IVFLUSH QSHIFT [facility] Last Admin: 04/12/24 08:02 Dose: 3 ml Documented By: ROXANNE Labs 04/11/24 06:34 04/12/24 08:17 Labs: Laboratory Results - last 24 hr 04/11/24 04/11/24 04/11/24 16:25 18:57 20:42 Anion Gap Estim Creat Clear Calc Estimated GFR POC Glucose 122 H 285 H 397 H* Random Glucose Calcium 04/12/24 04/12/24 04/12/24 07:32 08:17 11:11 Anion Gap 22 H Estim Creat Clear Calc 8.3 Estimated GFR 7 POC Glucose 529 H* 499 H* Random Glucose 607 H* Calcium 9.2 04/12/24 12:13 Anion Gap Estim Creat Clear Calc Estimated GFR POC Glucose 509 H* Random Glucose Calcium Microbiology Microbiology Results: Microbiology 04/09/24 14:48 Gram Stain - Final Foot Right Routine Culture - Final Methicillin Res Staph Aureus Enterococcus faecalis Assessment and Plan (1) Hx of right BKA: Status: Acute (2) Cellulitis of right foot: Status: Acute (3) ESRD on dialysis: Status: Chronic (4) ESRD (end stage renal disease): Status: Acute (5) Type 2 diabetes mellitus: Status: Chronic Plan 68-year-old Faroese-speaking male with a PMH significant for?ESRD on HD M/W/F last dialyzed earlier today, insulin-dependent type 2 diabetes, peripheral vascular disease, HFrEF (EF35%), HTN, HLD, chronically on 2L home O2, GERD, and ROBERT on CPAP with recent ampuation and here with post amputation complications of open,draning and likely infected woud given high WBC, and elevated ESR, he doesn't meet sepsis critieria Right TMA site wound, concern for infection and likely failed ampuation, WBC 27-->22-->20 Vascular surgery: OR for debridment 04/09/24, possible he will need amputation increased dry eschar/gangrene around the flap and incision site. plan: s/p bka oxycodone for pain 4-6, and dilaudid for 7-10,continue Vanco and zosyn 04/05/24. vascular following weakness right upper ext: as per family seems from at least 1-2 week duration,somewhat increasing slowly ct head negative seen by neurology eval noted-If symptoms recur, consider an EEG Hypertension, BPs variable, possible pain related continue home meds (hydralazine, losartan, coreg, lasix) ESRD on HD M/W/F has hyperkalemia going for Hd . Insulin-dependent type 2 diabetes: persistent hyperglycemia sec to diet noncomplance fs since morning from 300-500 range Patient was strongly advised not to eat outside food since it is causing more hyperglycemia. adjustted lantus fs with adjusted sliding scale ,fs moniter frequently , will check another bmp after Hd. HLD/PAD Continue aspirin, statin Gout Continue allopurinol GERD PPI Full Code DVT Prophylaxis: Heparin ongoing need for hospitalization of at least two nights for treatment of?right TMA site failed amputation, infection and need for IV Abx and likely surgical intervention for bka -tma Flap is dry gangrene/eschar. surgery d/w family in detail Quality Stroke Does the patient have a stroke diagnosis?: No VTE Prior VTE?: No VTE Risk Level:: Medical - moderate - high VTE Device Contraindication: Treatment Not Indicated VTE Drug Contraindication: N/A - Med Ordered
[2024-04-12] MEDS: Atorvastatin Calcium 40 MG TABLET PO (17:02)
[2024-04-12] MEDS: hydrALAZINE HCl 25 MG TABLET PO (17:03)
[2024-04-12] MEDS: Pregabalin 75 MG CAPSULE PO (17:03)
[2024-04-12] MEDS: allopurinoL 100 MG TABLET PO (17:03)
[2024-04-12] MEDS: Furosemide 40 MG TABLET 80 MG PO (17:03)
[2024-04-12] MEDS: Losartan Potassium 25 MG TABLET PO (17:03)
[2024-04-12] MEDS: Aspirin Enteric Coated 81 MG TABLET.DR PO (17:03)
[2024-04-12 17:19] LABS: VBG Base Excess 7.7 mmol/L; VBG HCO3 32 mmol/L (22-26); VBG pCO2 44 mmHg; VBG pH 7.46 (7.32-7.43); VBG pO2 57 mmHg
[2024-04-12 17:20] LABS: Venous Blood Gas Refer to POC result
[2024-04-12] MEDS: Epoetin Alfa-epbx 10,000 UNIT/ML VIAL 10000 UNIT SUBCUT (18:02)
[2024-04-12 18:41] LABS: Anion Gap 17 (12-20); Blood Urea Nitrogen 33 mg/dL (9-16); Calcium 8.8 mg/dL (8.4-10.2); Carbon Dioxide 25 mmol/L (22-29); Chloride 101 mmol/L (96-108); Creatinine Clr Calc Pharmacy 20.2; Estimated Glomerular Filt Rate 19; Glucose Random 281 mg/dL (60-115); Sodium 139 mmol/L (135-145)
--- NOTE | 2024-04-12 18:59 | P.PNNP_ITS ---
Subjective Subjective Date of Service: 04/12/24 Interval history: Seen on HD; S/P BKA. All recent data reviewed; D/W HD RN Physical Exam 2 Vital Signs: Vital Signs: Last Vital Signs Temp 97.0 F 04/12/24 11:11 Pulse 58 04/12/24 11:11 Resp 20 04/12/24 11:11 BP 107/51 L 04/12/24 11:11 Pulse Ox 100 04/12/24 11:11 O2 Del Method Nasal Cannula 04/12/24 11:11 O2 Flow Rate 2 04/12/24 11:11 Oxygen Flow Rate 2 04/05/24 10:37 BMI result Body Mass Index 28.0 Const: General: no acute distress Eyes: EOM: EOMs intact bilaterally Neck: Neck: Yes supple Resp: Auscultation: diminished lung sounds Cardio: Rate: regular rate GI: Palpation (GI): Soft to palpation Neuro: General: moves all extremities Objective Data Labs 04/11/24 06:34 04/12/24 18:20 Labs: Laboratory Results - last 24 hr 04/11/24 04/11/24 04/12/24 18:57 20:42 07:32 VBG pH VBG pCO2 VBG pO2 VBG HCO3 VBG O2 Saturation VBG Base Excess Sodium Potassium Chloride Carbon Dioxide Anion Gap BUN Creatinine Estim Creat Clear Calc Estimated GFR POC Glucose 285 H 397 H* 529 H* Random Glucose Calcium 04/12/24 04/12/24 04/12/24 08:17 11:11 12:13 VBG pH VBG pCO2 VBG pO2 VBG HCO3 VBG O2 Saturation VBG Base Excess Sodium 131 L Potassium 6.5 H* Chloride 96 Carbon Dioxide 20 L Anion Gap 22 H BUN 88 H Creatinine 7.90 H* Estim Creat Clear Calc 8.3 Estimated GFR 7 POC Glucose 499 H* 509 H* Random Glucose 607 H* Calcium 9.2 04/12/24 04/12/24 17:12 18:20 VBG pH 7.46 H VBG pCO2 44 VBG pO2 57 VBG HCO3 32 H VBG O2 Saturation 86.0 VBG Base Excess 7.7 Sodium 139 Potassium 4.0 D Chloride 101 Carbon Dioxide 25 Anion Gap 17 BUN 33 H Creatinine 3.27 H Estim Creat Clear Calc 20.2 Estimated GFR 19 POC Glucose Random Glucose 281 H Calcium 8.8 Microbiology Microbiology Results: Microbiology 04/09/24 14:48 Foot Right Gram Stain - Final 04/09/24 14:48 Foot Right Routine Culture - Final Methicillin Res Staph Aureus Enterococcus faecalis 04/05/24 12:38 Blood - Venous Blood Culture - Final No growth after 5 days. 04/05/24 12:50 Blood - Venous Blood Culture - Final No growth after 5 days. Procedures Date of Service Date of Service: 04/12/24 Assessment & Plan Assessment and plan (1) ESRD on dialysis: Status: Chronic Assessment and Plan: HD 3x week; Seen on HD today Renal diet; Epogen for Anemia; Next HD Monday Concur with rest of medical management Progress Note: Quality Stroke Does the patient have a stroke diagnosis?: No
[2024-04-12 19:24] LABS: Vancomycin Random 10.7 mcg/mL (15-20)
[2024-04-12 20:00] VITALS: BP 178/98; PULSE 75; RESP 16; TEMP 36.3; O2SAT 92
[2024-04-12] MEDS: oxyCODONE HCl Immed Release 5 MG TABLET PO (20:02)
[2024-04-12] MEDS: vancomycin HCL 500 MG in 0.9 % Sodium Chloride 100 ML 110 MG IV (20:07)
[2024-04-12] MEDS: Doxazosin Mesylate 2 MG TABLET 4 MG PO (20:43)
[2024-04-12 21:10] LABS: Glucose, Whole Blood 237 mg/dL (60-115)
[2024-04-12 21:10] LABS: Glucose, Whole Blood 400 mg/dL (60-115)
[2024-04-12 21:10] LABS: Glucose, Whole Blood 307 mg/dL (60-115)
[2024-04-12 23:13] VITALS: BP 190/88; PULSE 80; RESP 18; TEMP 36.3; O2SAT 96
[2024-04-13] VITALS (10 sets, daily range): BP systolic 116–197; BP diastolic 57–98; PULSE 72–80; RESP 16–20; TEMP 36.1–36.8; O2SAT 95–100
[2024-04-13 00:47] LABS: Glucose, Whole Blood 247 mg/dL (60-115)
[2024-04-13 02:16] LABS: Glucose, Whole Blood 163 mg/dL (60-115)
[2024-04-13] MEDS: HYDROmorphone HCl 0.5 MG/0.5 ML SYRINGE IVPUSH ×2 (03:45→10:31)
[2024-04-13] MEDS: Omeprazole 20 MG CAPSULE.DR PO (06:23)
[2024-04-13] MEDS: Piperacillin Sodium/Tazobactam 2.25 GM in 0.9 % Sodium Chloride 50 ML IV ×3 (06:23→20:54)
[2024-04-13] MEDS: oxyCODONE HCl Immed Release 5 MG TABLET PO ×2 (06:28→16:35)
--- NOTE | 2024-04-13 06:46 | PC.NURSE ---
Pt. c/o severe pain most of the night. See Physician notification for communication to Dr. Pineda. Pt. received a stat dose of Dilaudid 0.5mg at 5-per pt. no effect not enough, need more . Dr. Pineda was notified. Pt. received Oxycodone x2 overnight as well. Pt was touching his right stump/amp site dsg and dressing came off. Dressing changed. Incision/[place] intact. scant amt of staining through old dressing of quarter-sized. No bleeding noted on new dsg. Pt. was stating the dressing was too tight on old dsg.
[2024-04-13 07:20] LABS: Glucose, Whole Blood 170 mg/dL (60-115)
[2024-04-13] MEDS: Fluticasone/Umeclidinium/Vilanterol 100/62.5/25 BLST.W.DEV 1 PUFF INHALE (07:48)
[2024-04-13] MEDS: Atorvastatin Calcium 40 MG TABLET PO (08:30)
[2024-04-13] MEDS: 0.9 % Sodium Chloride Flush 3 ML SYRINGE IVFLUSH ×2 (08:31→16:35)
[2024-04-13] MEDS: Insulin Lispro 100 UNIT/ML 3 ML VIAL SUBCUT ×4 (08:31→20:53)
[2024-04-13] MEDS: carvediloL 6.25 MG TABLET PO ×2 (08:31→20:18)
[2024-04-13] MEDS: Heparin Sodium,Porcine 5,000 UNIT/ML VIAL 5000 UNIT SUBCUT ×2 (08:32→20:18)
[2024-04-13] MEDS: Aspirin Enteric Coated 81 MG TABLET.DR PO (08:32)
[2024-04-13] MEDS: HYDROmorphone HCl 0.5 MG/0.5 ML SYRINGE 1 MG IVPUSH ×3 (08:33→19:18)
[2024-04-13] MEDS: hydrALAZINE HCl 25 MG TABLET PO ×3 (08:35→20:20)
[2024-04-13 08:41] LABS: Anion Gap 20 (12-20); Blood Urea Nitrogen 52 mg/dL (9-16); Calcium 8.7 mg/dL (8.4-10.2); Carbon Dioxide 23 mmol/L (22-29); Chloride 98 mmol/L (96-108); Creatinine Clr Calc Pharmacy 14.4; Estimated Glomerular Filt Rate 13; Glucose Random 177 mg/dL (60-115); Potassium 4.8 mmol/L (3.3-5.1); Sodium 136 mmol/L (135-145)
[2024-04-13] MEDS: Pregabalin 75 MG CAPSULE PO ×3 (09:10→21:44)
[2024-04-13 11:00] LABS: Glucose, Whole Blood 217 mg/dL (60-115)
[2024-04-13 14:52] LABS: Glucose, Whole Blood 254 mg/dL (60-115)
[2024-04-13] MEDS: Doxazosin Mesylate 2 MG TABLET 4 MG PO (20:19)
[2024-04-13 20:30] LABS: Glucose, Whole Blood 282 mg/dL (60-115)
[2024-04-13] MEDS: Insulin Glargine,Hum.rec.anlog 100 UNIT/ML 10 ML VIAL 15 UNIT SUBCUT (20:53)
[2024-04-13] MEDS: Fluticasone Propionate Nasal 16 GM SPRAY 1 SPRAY NOSTRIL-B (21:44)
[2024-04-14] VITALS (8 sets, daily range): BP systolic 134–177; BP diastolic 58–91; PULSE 76–88; RESP 14–19; TEMP 36.3–37.7; O2SAT 95–99
[2024-04-14] MEDS: Piperacillin Sodium/Tazobactam 2.25 GM in 0.9 % Sodium Chloride 50 ML IV ×2 (05:27→12:22)
[2024-04-14] MEDS: HYDROmorphone HCl 0.5 MG/0.5 ML SYRINGE 1 MG IVPUSH ×4 (05:54→22:53)
[2024-04-14] MEDS: Omeprazole 20 MG CAPSULE.DR PO (07:04)
[2024-04-14 07:56] LABS: Glucose, Whole Blood 120 mg/dL (60-115)
[2024-04-14] MEDS: carvediloL 6.25 MG TABLET PO ×2 (09:03→19:47)
[2024-04-14] MEDS: 0.9 % Sodium Chloride Flush 3 ML SYRINGE IVFLUSH ×3 (09:03→22:30)
[2024-04-14] MEDS: Furosemide 40 MG TABLET 80 MG PO (09:04)
[2024-04-14] MEDS: Atorvastatin Calcium 40 MG TABLET PO (09:04)
[2024-04-14] MEDS: Losartan Potassium 25 MG TABLET PO (09:04)
[2024-04-14] MEDS: hydrALAZINE HCl 25 MG TABLET PO ×3 (09:04→19:51)
[2024-04-14] MEDS: Aspirin Enteric Coated 81 MG TABLET.DR PO (09:04)
[2024-04-14] MEDS: Pregabalin 75 MG CAPSULE PO ×2 (09:05→16:33)
[2024-04-14] MEDS: Heparin Sodium,Porcine 5,000 UNIT/ML VIAL 5000 UNIT SUBCUT ×2 (09:05→19:48)
[2024-04-14 11:02] LABS: Glucose, Whole Blood 174 mg/dL (60-115)
[2024-04-14] MEDS: Fluticasone/Umeclidinium/Vilanterol 100/62.5/25 BLST.W.DEV 1 PUFF INHALE (12:14)
[2024-04-14] MEDS: Insulin Lispro 100 UNIT/ML 3 ML VIAL SUBCUT ×3 (12:22→22:26)
[2024-04-14] MEDS: oxyCODONE HCl Immed Release 5 MG TABLET PO (12:25)
--- NOTE | 2024-04-14 15:46 | P.PNIM_ITS ---
Subjective Subjective Date of Service: 04/14/24 Interval History: dm with hyperglycemia esrd Review of Systems s/p bka-has pain intermittent denies any chest pain or sob or nausea or vomiting or abd pain . Physical Exam 2 Vital Signs: Vital Signs: Last Vital Signs Temp 99.1 F 04/14/24 15:38 Pulse 77 04/14/24 15:38 Resp 19 04/14/24 15:38 BP 134/58 L 04/14/24 15:38 Pulse Ox 95 04/14/24 15:38 O2 Del Method Room Air 04/14/24 15:38 O2 Flow Rate 2 04/13/24 15:39 Oxygen Flow Rate 2 04/14/24 14:00 BMI result Body Mass Index 28.0 Neck supple no JVD. Lungs entry equal no rales. Heart S1-S2 heard no gallop or rub. Abdomen soft nontender. skin:has bka Neuro alert awake oriented. No asterixis. Extremities no edema. Objective Data Active Medications Acetaminophen (Acetaminophen 325 Mg Tablet) 650 mg PO Q6H PRN PRN Reason: Pain, Mild 1-3,fever,headache Last Admin: 04/07/24 19:56 Dose: 650 mg Documented By: SERA Al Hydroxide/Mg Hydroxide (Magnesium Hydrox/Alum Hydrox 30 Ml Oral.Susp) 30 ml PO Q4H PRN PRN Reason: Heartburn Albuterol Sulfate (Albuterol Sulfate 90 Mcg 8 Gm Inhaler) 2 puff INHALE Q4H PRN PRN Reason: Shortness Of Breath Allopurinol (Allopurinol 100 Mg Tablet) 100 mg PO MOWEFR@1600 [facility] Last Admin: 04/12/24 17:03 Dose: 100 mg Documented By: ROXANNE Aspirin (Aspirin Enteric Coated 81 Mg Tablet.) 81 mg PO MOWEFR@1600 [facility] Last Admin: 04/12/24 17:03 Dose: 81 mg Documented By: ROXANNE Aspirin (Aspirin Enteric Coated 81 Mg Tablet.) 81 mg PO SUTUTHSA@ [facility] Last Admin: 04/14/24 09:04 Dose: 81 mg Documented By: TEODORO Atorvastatin Calcium (Atorvastatin Calcium 40 Mg Tablet) 40 mg PO MOWEFR@1600 [facility] Last Admin: 04/12/24 17:02 Dose: 40 mg Documented By: ROXANNE Atorvastatin Calcium (Atorvastatin Calcium 40 Mg Tablet) 40 mg PO SUTUTHSA@0900 [facility] Last Admin: 04/14/24 09:04 Dose: 40 mg Documented By: TEODORO Bisacodyl (Bisacodyl 10 Mg Supp.Rect) 10 mg [place] DAILY PRN PRN Reason: Constipation Calcium Carbonate (Calcium Carbonate 750 Mg Tab.Chew) 750 mg PO Q4H PRN PRN Reason: Heartburn Carvedilol (Carvedilol 6.25 Mg Tablet) 6.25 mg PO BID [facility]; Protocol Last Admin: 04/14/24 09:03 Dose: 6.25 mg Documented By: TEODORO Dextrose (Dextrose 50 % 25 Gm/50 Ml Syringe) 25 gm IVPUSH Q15M PRN; Protocol PRN Reason: per Hypoglycemia Standing Ord. Doxazosin Mesylate (Doxazosin Mesylate 2 Mg Tablet) 4 mg PO BEDTIME [facility]; Protocol Last Admin: 04/13/24 20:19 Dose: 4 mg Documented By: HIRAL Epoetin Keegan-epbx (Epoetin Keegan-Epbx 10,000 Unit/Ml Vial) 10,000 unit SUBCUT MoWeFr@1645 [facility] Last Admin: 04/12/24 18:02 Dose: 10,000 unit Documented By: ROXANNE Fluticasone Propionate (Fluticasone Propionate Nasal 16 Gm [place]) 1 spray NOSTRIL-B BID [facility] Last Admin: 04/14/24 09:05 Dose: Not Given Documented By: TEODORO Non-Admin Reason: Patient Refused Fluticasone/Umeclidinium/Vilanterol (Fluticasone/Umeclidinium/Vilanterol 100/62.5/25 Blst.W.Dev) 1 puff INHALE RDAILY [facility] Last Admin: 04/14/24 12:14 Dose: 1 puff Documented By: JESSICA Furosemide (Furosemide 40 Mg Tablet) 80 mg PO MOWEFR@1600 [facility]; Protocol Last Admin: 04/12/24 17:03 Dose: 80 mg Documented By: ROXANNE Furosemide (Furosemide 40 Mg Tablet) 80 mg PO SUTUTHSA@0900 [facility]; Protocol Last Admin: 04/14/24 09:04 Dose: 80 mg Documented By: TEODORO Glucose (Glucose Gel 15 Gm Gel..Gram.) 15 gm PO Q15M PRN; Protocol PRN Reason: per Hypoglycemia Standing Ord. Heparin Sodium (Porcine) (Heparin Sodium,Porcine 5,000 Unit/Ml Vial) 5,000 unit SUBCUT BID [facility] Last Admin: 04/14/24 09:05 Dose: 5,000 unit Documented By: TEODORO Hydralazine HCl (Hydralazine Hcl 25 Mg Tablet) 25 mg PO MOWEFR@1600 [facility]; Protocol Last Admin: 04/12/24 17:03 Dose: 25 mg Documented By: ROXANNE Hydralazine HCl (Hydralazine Hcl 25 Mg Tablet) 25 mg PO SUTUTHSA@09,15,21 [facility]; Protocol Last Admin: 04/14/24 09:04 Dose: 25 mg Documented By: TEODORO Hydromorphone HCl (Hydromorphone Hcl 0.5 Mg/0.5 Ml Syringe) 1 mg IVPUSH Q4H PRN; Protocol PRN Reason: Pain, Severe (Pain Scale 7-10) Last Admin: 04/14/24 05:54 Dose: 1 mg Documented By: HIRAL Piperacillin Sod/Tazobactam (Sod 2.25 gm/ Sodium Chloride) 50 mls @ 100 mls/hr IV Q8H [facility] Last Infusion: 04/14/24 12:53 Dose: Infused Documented By: TEODORO Vancomycin HCl 500 mg/ Sodium (Chloride) 110 mls @ 110 mls/hr IV ONCE ONE Stop: 04/05/24 15:29 Insulin Glargine (Insulin Glargine,Hum.Rec.Anlog 100 Unit/Ml 10 Ml Vial) 15 unit SUBCUT BEDTIME [facility] Last Admin: 04/13/24 20:53 Dose: 15 unit Documented By: HIRAL Insulin Human Lispro (Insulin Lispro 100 Unit/Ml 3 Ml Vial) 0 unit SUBCUT QIDACHS [facility]; Protocol Last Admin: 04/14/24 12:22 Dose: 2 unit Documented By: TEODORO Losartan Potassium (Losartan Potassium 25 Mg Tablet) 25 mg PO MOWEFR@1600 [facility]; Protocol Last Admin: 04/12/24 17:03 Dose: 25 mg Documented By: ROXANNE Losartan Potassium (Losartan Potassium 25 Mg Tablet) 25 mg PO SUTUTHSA@0900 [facility]; Protocol Last Admin: 04/14/24 09:04 Dose: 25 mg Documented By: TEODORO Magnesium Hydroxide (Milk Of Magnesia 30 Ml Oral.Susp) 30 ml PO DAILY PRN PRN Reason: Constipation Last Admin: 04/09/24 21:34 Dose: 30 ml Documented By: YAKOV-JENNIFER Melatonin (Melatonin 3 Mg Tablet) 6 mg PO BEDTIME PRN PRN Reason: Insomnia Naloxone HCl (Naloxone Hcl 0.4 Mg/Ml Vial) 0.04 mg IVPUSH Q5M PRN PRN Reason: Excessive sedation or RR < 8 Non-Formulary Medication (Sucroferric Oxyhydroxide [Velphoro]) 500 mg PO TID [facility] Omeprazole (Omeprazole 20 Mg Capsule.Dr) 20 mg PO DAILY@0630 [facility] Last Admin: 04/14/24 07:04 Dose: 20 mg Documented By: HIRAL Ondansetron HCl (Ondansetron Hcl 4 Mg/2 Ml Vial) 4 mg IVPUSH Q8H PRN PRN Reason: Nausea and Vomiting Oxycodone HCl (Oxycodone Hcl Immed Release 5 Mg Tablet) 5 mg PO Q4H PRN PRN Reason: Pain, Moderate(Pain Scale 4-6) Last Admin: 04/14/24 12:25 Dose: 5 mg Documented By: TEODORO Pharmacy Consult (Consult Rx Vancomycin Dosing) 1 each MISCELLANE DAILY PRN PRN Reason: Consult order Polyethylene Glycol (Polyethylene Glycol 3350 17 Gm Powd.Pack) 17 gm PO DAILY PRN PRN Reason: Constipation Pregabalin (Pregabalin 75 Mg Capsule) 75 mg PO MOWEFR@1600 [facility] Last Admin: 04/12/24 17:03 Dose: 75 mg Documented By: ROXANNE Pregabalin (Pregabalin 75 Mg Capsule) 75 mg PO SUTUTHSA@ [facility] Last Admin: 04/14/24 09:05 Dose: 75 mg Documented By: TEODORO Senna (Sennosides 8.6 Mg Tablet) 8.6 mg PO DAILY PRN PRN Reason: Constipation Sodium Chloride (0.9 % Sodium Chloride Flush 3 Ml Syringe) 3 ml IVFLUSH QSHIFT [facility] Last Admin: 04/14/24 09:03 Dose: 3 ml Documented By: TEODORO Labs 04/11/24 06:34 04/13/24 06:53 Labs: Laboratory Results - last 24 hr 04/13/24 04/14/24 04/14/24 20:19 07:50 10:53 POC Glucose 282 H 120 H 174 H Assessment and Plan (1) Hx of right BKA: Status: Acute (2) Cellulitis of right foot: Status: Acute (3) ESRD on dialysis: Status: Chronic (4) Type 2 diabetes mellitus: Status: Chronic Plan 68-year-old Serbian-speaking male with a PMH significant for?ESRD on HD M/W/F last dialyzed earlier today, insulin-dependent type 2 diabetes, peripheral vascular disease, HFrEF (EF35%), HTN, HLD, chronically on 2L home O2, GERD, and ROBERT on CPAP with recent ampuation and here with post amputation complications of open,draning and likely infected woud given high WBC, and elevated ESR, he doesn't meet sepsis critieria Right TMA site wound, concern for infection and likely failed ampuation, WBC 27-->22-->20 Vascular surgery: OR for debridment 04/09/24, possible he will need amputation increased dry eschar/gangrene around the flap and incision site. plan: s/p bka will adjust oxycodonedosing and adjust dilaudid frequency dc Vanco and zosyn 04/05/24 s/p bka. vascular following weakness right upper ext: as per family seems from at least 1-2 week duration,somewhat increasing slowly ct head negative seen by neurology eval noted-If symptoms recur, consider an EEG. Hypertension, BPs variable, possible pain related continue home meds (hydralazine, losartan, coreg, lasix) ESRD on HD M/W/ mild hyperkalemia on Hd . Insulin-dependent type 2 diabetes: persistent hyperglycemia sec to diet noncomplance adjusted lantus 15 units qhs fs with coverage. HLD/PAD Continue aspirin, statin Gout Continue allopurinol GERD PPI Full Code DVT Prophylaxis: Heparin ongoing need for hospitalization of at least two nights for treatment of?right TMA site failed amputation, infection and need for IV Abx and likely surgical intervention for bka -tma Flap is dry gangrene/eschar. surgery d/w family in detail Quality Stroke Does the patient have a stroke diagnosis?: No VTE Prior VTE?: No VTE Risk Level:: Medical - moderate - high VTE Device Contraindication: Treatment Not Indicated VTE Drug Contraindication: N/A - Med Ordered
[2024-04-14] MEDS: Doxazosin Mesylate 2 MG TABLET 4 MG PO (19:47)
[2024-04-14] MEDS: Docusate Sodium 100 MG CAPSULE PO (19:47)
[2024-04-14] MEDS: oxyCODONE HCl Immed Release 5 MG TABLET 10 MG PO (19:53)
[2024-04-14 20:05] LABS: Glucose, Whole Blood 172 mg/dL (60-115)
[2024-04-14 20:13] LABS: Glucose, Whole Blood 165 mg/dL (60-115)
[2024-04-14] MEDS: Insulin Glargine,Hum.rec.anlog 100 UNIT/ML 10 ML VIAL 15 UNIT SUBCUT (22:26)
[2024-04-14] MEDS: Fluticasone Propionate Nasal 16 GM SPRAY 1 SPRAY NOSTRIL-B (22:31)
[2024-04-15] VITALS (15 sets, daily range): BP systolic 150–210; BP diastolic 74–175; PULSE 70–98; RESP 16–22; TEMP 36.3–37.3; O2SAT 93–100
--- NOTE | 2024-04-15 | EEG_ITS ---
This is a 16-channel EEG with an EKG lead. The patient is reported awake and drowsy during the tracing. Background EEG rhythm is low amplitude fast with intermittent left temporal sharp waves. Photic stimulation does not produce any significant driving. Hyperventilation is not performed. Cardiac lead does not reveal any significant abnormality. IMPRESSION: Mildly abnormal EEG suggestive of left temporal irritability. MD ROWAN Menjivar/TRINA / [phone]
[2024-04-15] MEDS: Omeprazole 20 MG CAPSULE.DR PO (06:15)
[2024-04-15] MEDS: HYDROmorphone HCl 0.5 MG/0.5 ML SYRINGE 1 MG IVPUSH (06:15)
[2024-04-15 07:20] LABS: Glucose, Whole Blood 78 mg/dL (60-115)
[2024-04-15] MEDS: Docusate Sodium 100 MG CAPSULE PO (08:20)
[2024-04-15] MEDS: carvediloL 6.25 MG TABLET PO (08:20)
[2024-04-15] MEDS: Heparin Sodium,Porcine 5,000 UNIT/ML VIAL 5000 UNIT SUBCUT (08:20)
[2024-04-15] MEDS: Dextrose 50 % 25 GM/50 ML SYRINGE IVPUSH (08:20)
[2024-04-15] MEDS: 0.9 % Sodium Chloride Flush 3 ML SYRINGE IVFLUSH ×2 (08:21→16:13)
[2024-04-15 09:56] LABS: Hematocrit 23.7 % (42.0-52.0); Hemoglobin 7.6 g/dl (14.0-18.0); Mean Corpuscular HGB Conc 32.1 g/dl (31.0-36.0); Mean Corpuscular Hemoglobin 23.3 pg (27.0-33.0); Mean Corpuscular Volume 72.7 fL (80.0-98.0); Mean Platelet Volume 10.5 fL (9.4-12.4); Platelet Count 446 X10*3/uL (160-400); Red Blood Count 3.26 X10*6/uL (4.60-5.80); Red Cell Distribution Width 16.2 % (11.0-16.0); White Blood Count 19.9 X10*3/uL (4.8-10.8)
[2024-04-15 09:57] LABS: Venous Blood Gas Refer to POC result
[2024-04-15 09:58] LABS: VBG Base Excess -2.8 mmol/L; VBG HCO3 21 mmol/L (22-26); VBG pCO2 35 mmHg; VBG pH 7.39 (7.32-7.43); VBG pO2 118 mmHg
[2024-04-15 10:34] LABS: Anion Gap 25 (12-20); Blood Urea Nitrogen 97 mg/dL (9-16); Calcium 8.4 mg/dL (8.4-10.2); Carbon Dioxide 19 mmol/L (22-29); Chloride 94 mmol/L (96-108); Creatinine Clr Calc Pharmacy 7.1; Estimated Glomerular Filt Rate 6; Glucose Random 193 mg/dL (60-115); Potassium 6.8 mmol/L (3.3-5.1); Sodium 131 mmol/L (135-145)
[2024-04-15] MEDS: Fluticasone/Umeclidinium/Vilanterol 100/62.5/25 BLST.W.DEV 1 PUFF INHALE (11:43)
--- NOTE | 2024-04-15 11:44 | MHC.CM.PN ---
Per ROUNDS discussion, Patient is not yet medically cleared for dc. OT is recommending STR and CM will continue to follow.
[2024-04-15 11:56] LABS: Glucose, Whole Blood 148 mg/dL (60-115)
[2024-04-15] MEDS: levETIRAcetam 500 MG TABLET PO (14:13)
--- NOTE | 2024-04-15 14:36 | MHC.CM.PN ---
Patient is active with [facility](not [facility]); CM will follow.
[2024-04-15] MEDS: Furosemide 40 MG TABLET 80 MG PO (16:10)
[2024-04-15] MEDS: Aspirin Enteric Coated 81 MG TABLET.DR PO (16:12)
[2024-04-15] MEDS: allopurinoL 100 MG TABLET PO (16:13)
[2024-04-15] MEDS: hydrALAZINE HCl 25 MG TABLET PO (16:13)
[2024-04-15] MEDS: Atorvastatin Calcium 40 MG TABLET PO (16:14)
[2024-04-15 16:39] LABS: Glucose, Whole Blood 107 mg/dL (60-115)
--- NOTE | 2024-04-15 18:18 | P.PNIM_ITS ---
Subjective Subjective Date of Service: 04/15/24 Interval History: toxic metabolic encephalopathy postop anemia Review of Systems Patient was feeling somewhat generalized weak, confused this morning, also has some muscle twitching Later in the afternoon seems to be improving Denies any chest pain or shortness of breath or abdominal pain. Physical Exam 2 Vital Signs: Vital Signs: Last Vital Signs Temp 98.0 F 04/15/24 16:26 Pulse 70 04/15/24 16:26 Resp 18 04/15/24 16:26 BP 178/80 H 04/15/24 16: Pulse Ox 100 04/15/24 16:00 O2 Del Method Nasal Cannula 04/15/24 16:00 O2 Flow Rate 2 04/15/24 16:00 Oxygen Flow Rate 2 04/14/24 14:00 BMI result Body Mass Index 28.0 Neck supple no JVD. Lungs entry equal no rales. Heart S1-S2 heard no gallop or rub. Abdomen soft nontender. skin:has bka Neuro aox2 No asterixis. Extremities no edema. Objective Data Active Medications Acetaminophen (Acetaminophen 325 Mg Tablet) 650 mg PO Q6H PRN PRN Reason: Pain, Mild 1-3,fever,headache Last Admin: 04/07/24 19:56 Dose: 650 mg Documented By: SERA Al Hydroxide/Mg Hydroxide (Magnesium Hydrox/Alum Hydrox 30 Ml Oral.Susp) 30 ml PO Q4H PRN PRN Reason: Heartburn Albuterol Sulfate (Albuterol Sulfate 90 Mcg 8 Gm Inhaler) 2 puff INHALE Q4H PRN PRN Reason: Shortness Of Breath Allopurinol (Allopurinol 100 Mg Tablet) 100 mg PO MOWEFR@1600 [facility] Last Admin: 04/15/24 16:13 Dose: 100 mg Documented By: RAY Aspirin (Aspirin Enteric Coated 81 Mg Tablet.) 81 mg PO MOWEFR@1600 [facility] Last Admin: 04/15/24 16:12 Dose: 81 mg Documented By: RAY Aspirin (Aspirin Enteric Coated 81 Mg Tablet.) 81 mg PO SUTUTHSA@ [facility] Last Admin: 04/14/24 09:04 Dose: 81 mg Documented By: TEODORO Atorvastatin Calcium (Atorvastatin Calcium 40 Mg Tablet) 40 mg PO MOWEFR@1600 [facility] Last Admin: 04/15/24 16:14 Dose: 40 mg Documented By: RAY Atorvastatin Calcium (Atorvastatin Calcium 40 Mg Tablet) 40 mg PO SUTUTHSA@0900 [facility] Last Admin: 04/14/24 09:04 Dose: 40 mg Documented By: TEODORO Bisacodyl (Bisacodyl 10 Mg Supp.Rect) 10 mg IN DAILY PRN PRN Reason: Constipation Calcium Carbonate (Calcium Carbonate 750 Mg Tab.Chew) 750 mg PO Q4H PRN PRN Reason: Heartburn Carvedilol (Carvedilol 6.25 Mg Tablet) 6.25 mg PO BID [facility]; Protocol Last Admin: 04/15/24 08:20 Dose: 6.25 mg Documented By: RAY Dextrose (Dextrose 50 % 25 Gm/50 Ml Syringe) 25 gm IVPUSH Q15M PRN; Protocol PRN Reason: per Hypoglycemia Standing Ord. Docusate Sodium (Docusate Sodium 100 Mg Capsule) 100 mg PO BID [facility] Last Admin: 04/15/24 08:20 Dose: 100 mg Documented By: RAY Doxazosin Mesylate (Doxazosin Mesylate 2 Mg Tablet) 4 mg PO BEDTIME [facility]; Protocol Last Admin: 04/14/24 19:47 Dose: 4 mg Documented By: HIRAL Epoetin Keegan-epbx (Epoetin Keegan-Epbx 10,000 Unit/Ml Vial) 10,000 unit SUBCUT MoWeFr@1645 [facility] Last Admin: 04/12/24 18:02 Dose: 10,000 unit Documented By: ROXANNE Fluticasone Propionate (Fluticasone Propionate Nasal 16 Gm [place]) 1 spray NOSTRIL-B BID [facility] Last Admin: 04/15/24 12:46 Dose: Not Given Documented By: RAY Non-Admin Reason: Patient Refused Fluticasone/Umeclidinium/Vilanterol (Fluticasone/Umeclidinium/Vilanterol 100/62.5/25 Blst.W.Dev) 1 puff INHALE RDAILY [facility] Last Admin: 04/15/24 11:43 Dose: 1 puff Documented By: MINNA Furosemide (Furosemide 40 Mg Tablet) 80 mg PO MOWEFR@1600 [facility]; Protocol Last Admin: 04/15/24 16:10 Dose: 80 mg Documented By: RAY Furosemide (Furosemide 40 Mg Tablet) 80 mg PO SUTUTHSA@0900 [facility]; Protocol Last Admin: 04/14/24 09:04 Dose: 80 mg Documented By: TEODORO Glucose (Glucose Gel 15 Gm Gel..Gram.) 15 gm PO Q15M PRN; Protocol PRN Reason: per Hypoglycemia Standing Ord. Heparin Sodium (Porcine) (Heparin Sodium,Porcine 5,000 Unit/Ml Vial) 5,000 unit SUBCUT BID [facility] Last Admin: 04/15/24 08:20 Dose: 5,000 unit Documented By: RAY Hydralazine HCl (Hydralazine Hcl 25 Mg Tablet) 25 mg PO MOWEFR@1600 [facility]; Protocol Last Admin: 04/15/24 16:13 Dose: 25 mg Documented By: RAY Hydralazine HCl (Hydralazine Hcl 25 Mg Tablet) 25 mg PO SUTUTHSA@09,15,21 [facility]; Protocol Last Admin: 04/14/24 19:51 Dose: 25 mg Documented By: HIRAL Insulin Glargine (Insulin Glargine,Hum.Rec.Anlog 100 Unit/Ml 10 Ml Vial) 10 unit SUBCUT BEDTIME [facility] Insulin Human Lispro (Insulin Lispro 100 Unit/Ml 3 Ml Vial) 0 unit SUBCUT QIDAS [facility]; Protocol Last Admin: 04/15/24 16:41 Dose: Not Given Documented By: RAY Non-Admin Reason: No Insulin Coverage Levetiracetam (Levetiracetam 500 Mg Tablet) 500 mg PO BID [facility] Last Admin: 04/15/24 14:13 Dose: 500 mg Documented By: RAY Losartan Potassium (Losartan Potassium 50 Mg Tablet) 50 mg PO BID [facility]; Protocol Magnesium Hydroxide (Milk Of Magnesia 30 Ml Oral.Susp) 30 ml PO DAILY PRN PRN Reason: Constipation Last Admin: 04/09/24 21:34 Dose: 30 ml Documented By: EVY Melatonin (Melatonin 3 Mg Tablet) 6 mg PO BEDTIME PRN PRN Reason: Insomnia Naloxone HCl (Naloxone Hcl 0.4 Mg/Ml Vial) 0.04 mg IVPUSH Q5M PRN PRN Reason: Excessive sedation or RR < 8 Non-Formulary Medication (Sucroferric Oxyhydroxide [Velphoro]) 500 mg PO TID [facility] Omeprazole (Omeprazole 20 Mg Capsule.Dr) 20 mg PO DAILY@0630 [facility] Last Admin: 04/15/24 06:15 Dose: 20 mg Documented By: HIRAL Ondansetron HCl (Ondansetron Hcl 4 Mg/2 Ml Vial) 4 mg IVPUSH Q8H PRN PRN Reason: Nausea and Vomiting Polyethylene Glycol (Polyethylene Glycol 3350 17 Gm Powd.Pack) 17 gm PO DAILY PRN PRN Reason: Constipation Senna (Sennosides 8.6 Mg Tablet) 8.6 mg PO DAILY PRN PRN Reason: Constipation Sodium Chloride (0.9 % Sodium Chloride Flush 3 Ml Syringe) 3 ml IVFLUSH QSHIFT [facility] Last Admin: 04/15/24 16:13 Dose: 3 ml Documented By: RAY Labs 04/15/24 09:48 04/15/24 09:48 Labs: Laboratory Results - last 24 hr 04/11/24 04/11/24 04/11/24 06:34 07:29 10:55 POC Hgb (Calc) POC Hct MCV 73.7 L MCH 22.9 L MCHC 31.1 RDW 16.4 H Plt Count 388 MPV 11.3 Absolute Nucleated RBC 0.000 Nucleated RBC % (auto) 0.0 POC Std Base Excess POC O2 Sat (Calc) POC ABG pO2 POC ABG Total CO2 VBG pH VBG pCO2 VBG pO2 VBG HCO3 VBG O2 Saturation VBG Base Excess POC Capillary pH POC Capillary pCO2 POC Cap HCO3 (Calc) POC Sodium POC Potassium Anion Gap Estim Creat Clear Calc Estimated GFR POC Glucose 317 H 108 Random Glucose Estimat Average Glucose 166 Hemoglobin A1c % 7.4 H Calcium Random Vancomycin Blood Type Antibody Screen Crossmatch 04/11/24 04/11/24 04/11/24 13:02 13:47 16:25 POC Hgb (Calc) 10.5 L POC Hct 31 L MCV MCH MCHC RDW Plt Count MPV Absolute Nucleated RBC Nucleated RBC % (auto) POC Std Base Excess 0 POC O2 Sat (Calc) 91 POC ABG pO2 63 L POC ABG Total CO2 27 VBG pH VBG pCO2 VBG pO2 VBG HCO3 VBG O2 Saturation VBG Base Excess POC Capillary pH 7.35 POC Capillary pCO2 46 POC Cap HCO3 (Calc) 26 POC Sodium 134 L POC Potassium 5.4 H Anion Gap Estim Creat Clear Calc Estimated GFR POC Glucose 80 83 122 H Random Glucose Estimat Average Glucose Hemoglobin A1c % Calcium Random Vancomycin Blood Type Antibody Screen Crossmatch 04/11/24 04/11/24 04/12/24 18:57 20:42 07:32 POC Hgb (Calc) POC Hct MCV MCH MCHC RDW Plt Count MPV Absolute Nucleated RBC Nucleated RBC % (auto) POC Std Base Excess POC O2 Sat (Calc) POC ABG pO2 POC ABG Total CO2 VBG pH VBG pCO2 VBG pO2 VBG HCO3 VBG O2 Saturation VBG Base Excess POC Capillary pH POC Capillary pCO2 POC Cap HCO3 (Calc) POC Sodium POC Potassium Anion Gap Estim Creat Clear Calc Estimated GFR POC Glucose 285 H 397 H* 529 H* Random Glucose Estimat Average Glucose Hemoglobin A1c % Calcium Random Vancomycin Blood Type Antibody Screen Crossmatch 04/12/24 04/12/24 04/12/24 08:17 11:11 12:13 POC Hgb (Calc) POC Hct MCV MCH MCHC RDW Plt Count MPV Absolute Nucleated RBC Nucleated RBC % (auto) POC Std Base Excess POC O2 Sat (Calc) POC ABG pO2 POC ABG Total CO2 VBG pH VBG pCO2 VBG pO2 VBG HCO3 VBG O2 Saturation VBG Base Excess POC Capillary pH POC Capillary pCO2 POC Cap HCO3 (Calc) POC Sodium POC Potassium Anion Gap 22 H Estim Creat Clear Calc 8.3 Estimated GFR 7 POC Glucose 499 H* 509 H* Random Glucose 607 H* Estimat Average Glucose Hemoglobin A1c % Calcium 9.2 Random Vancomycin Blood Type Antibody Screen Crossmatch 04/12/24 04/12/24 04/12/24 16:23 17:12 17:58 POC Hgb (Calc) POC Hct MCV MCH MCHC RDW Plt Count MPV Absolute Nucleated RBC Nucleated RBC % (auto) POC Std Base Excess POC O2 Sat (Calc) POC ABG pO2 POC ABG Total CO2 VBG pH 7.46 H VBG pCO2 44 VBG pO2 57 VBG HCO3 32 H VBG O2 Saturation 86.0 VBG Base Excess 7.7 POC Capillary pH POC Capillary pCO2 POC Cap HCO3 (Calc) POC Sodium POC Potassium Anion Gap Estim Creat Clear Calc Estimated GFR POC Glucose 237 H 307 H Random Glucose Estimat Average Glucose Hemoglobin A1c % Calcium Random Vancomycin Blood Type Antibody Screen Crossmatch 04/12/24 04/12/24 04/12/24 18:20 18:38 21:03 POC Hgb (Calc) POC Hct MCV MCH MCHC RDW Plt Count MPV Absolute Nucleated RBC Nucleated RBC % (auto) POC Std Base Excess POC O2 Sat (Calc) POC ABG pO2 POC ABG Total CO2 VBG pH VBG pCO2 VBG pO2 VBG HCO3 VBG O2 Saturation VBG Base Excess POC Capillary pH POC Capillary pCO2 POC Cap HCO3 (Calc) POC Sodium POC Potassium Anion Gap 17 Estim Creat Clear Calc 20.2 Estimated GFR 19 POC Glucose 400 H* Random Glucose 281 H Estimat Average Glucose Hemoglobin A1c % Calcium 8.8 Random Vancomycin 10.7 L Blood Type Antibody Screen Crossmatch 04/12/24 04/14/24 04/14/24 23:12 15:04 20:08 POC Hgb (Calc) POC Hct MCV MCH MCHC RDW Plt Count MPV Absolute Nucleated RBC Nucleated RBC % (auto) POC Std Base Excess POC O2 Sat (Calc) POC ABG pO2 POC ABG Total CO2 VBG pH VBG pCO2 VBG pO2 VBG HCO3 VBG O2 Saturation VBG Base Excess POC Capillary pH POC Capillary pCO2 POC Cap HCO3 (Calc) POC Sodium POC Potassium Anion Gap Estim Creat Clear Calc Estimated GFR POC Glucose 247 H 172 H 165 H Random Glucose Estimat Average Glucose Hemoglobin A1c % Calcium Random Vancomycin Blood Type Antibody Screen Crossmatch 04/15/24 04/15/24 04/15/24 07:13 09:48 09:52 POC Hgb (Calc) POC Hct MCV 72.7 L MCH 23.3 L MCHC 32.1 RDW 16.2 H Plt Count 446 H MPV 10.5 Absolute Nucleated RBC 0.000 Nucleated RBC % (auto) 0.0 POC Std Base Excess POC O2 Sat (Calc) POC ABG pO2 POC ABG Total CO2 VBG pH 7.39 VBG pCO2 35 VBG pO2 118 VBG HCO3 21 L VBG O2 Saturation 100.0 VBG Base Excess -2.8 POC Capillary pH POC Capillary pCO2 POC Cap HCO3 (Calc) POC Sodium POC Potassium Anion Gap 25 H Estim Creat Clear Calc 7.1 Estimated GFR 6 POC Glucose 78 Random Glucose 193 H Estimat Average Glucose Hemoglobin A1c % Calcium 8.4 Random Vancomycin Blood Type Antibody Screen Crossmatch 04/15/24 04/15/24 04/15/24 11:53 12:28 16:34 POC Hgb (Calc) POC Hct MCV MCH MCHC RDW Plt Count MPV Absolute Nucleated RBC Nucleated RBC % (auto) POC Std Base Excess POC O2 Sat (Calc) POC ABG pO2 POC ABG Total CO2 VBG pH VBG pCO2 VBG pO2 VBG HCO3 VBG O2 Saturation VBG Base Excess POC Capillary pH POC Capillary pCO2 POC Cap HCO3 (Calc) POC Sodium POC Potassium Anion Gap Estim Creat Clear Calc Estimated GFR POC Glucose 148 H 107 Random Glucose Estimat Average Glucose Hemoglobin A1c % Calcium Random Vancomycin Blood Type A Positive Antibody Screen NEGATIVE Crossmatch See Detail Assessment and Plan (1) Hx of right BKA: Status: Acute (2) ESRD needing dialysis: Status: Acute Plan 68-year-old Hungarian-speaking male with a PMH significant for?ESRD on HD M// last dialyzed earlier today, insulin-dependent type 2 diabetes, peripheral vascular disease, HFrEF (EF35%), HTN, HLD, chronically on 2L home O2, GERD, and ROBERT on CPAP with recent ampuation and here with post amputation complications of open,draning and likely infected woud given high WBC, and elevated ESR, he doesn't meet sepsis critieria Right TMA site wound, concern for infection and likely failed ampuation, WBC 27-->22-->20-19 Vascular surgery: OR for debridment 04/09/24, possible he will need amputation-i ncreased dry eschar/gangrene around the flap and incision site-s/p bka off Vanco and zosyn 04/05/24 s/p bka. hold sedative meds. vascular following possible twiching /? seizure : EEG revealed mild abnormality suggestive of left temporal irritability. With history of another episode, my recommendation is to start him on levetiracetam 500 mg twice a day. Toxic metabolic encephalopathy: Multifactorial Pain medications, electrolytic abnormalities, fingersticks also on the lower side Hold pain and sedative medications Patient will get dialysis. PH is normal on VBG CT head and negative Will hold Lantus to avoid hypoglycemia. Hypertension: Blood pressure fluctuating Discussed with Nephrology continue hydralazine,coreg, lasix, adjusted losartan 50 b.i.d.,also going for hd today Continue to monitor blood pressure needed may need use IV hydralazine. ESRD on HD /W/F mild hyperkalemia on Hd . acute blood loss anemia on ch anemia: due to postop adde 2 prbc with hd. Insulin-dependent type 2 diabetes: persistent hyperglycemia sec to diet noncomplance adjusted lantus 15 units qhs fs with coverage. HLD/PAD Continue aspirin, statin Gout Continue allopurinol GERD PPI Full Code DVT Prophylaxis: Heparin Above management discussed with the patient family in detail length at the bedside, staff present. Quality Stroke Does the patient have a stroke diagnosis?: No VTE Prior VTE?: No VTE Risk Level:: Medical - moderate - high VTE Device Contraindication: Treatment Not Indicated VTE Drug Contraindication: N/A - Med Ordered
--- NOTE | 2024-04-15 20:28 | P.PNNP_ITS ---
Subjective Subjective Date of Service: 04/15/24 Interval history: Events noted. All recent data reviewed. D/W Hospitalist Physical Exam 2 Vital Signs: Vital Signs: Last Vital Signs Temp 98.7 F 04/15/24 20:00 Pulse 97 04/15/24 20:00 Resp 18 04/15/24 20:00 BP 150/80 H 04/15/24 20:00 Pulse Ox 96 04/15/24 20:00 O2 Del Method Nasal Cannula 04/15/24 20:00 O2 Flow Rate 2 04/15/24 20:00 Oxygen Flow Rate 2 04/15/24 14:00 BMI result Body Mass Index 28.0 Const: General: no acute distress Eyes: EOM: EOMs intact bilaterally Neck: Neck: Yes supple Resp: Auscultation: diminished lung sounds Cardio: Rate: regular rate GI: Palpation (GI): Soft to palpation Skin: General skin exam: no rashes or lesions noted Extrem: Other: BKA Objective Data Labs 04/15/24 09:48 04/15/24 09:48 Labs: Laboratory Results - last 24 hr 04/11/24 04/11/24 04/11/24 06:34 07:29 10:55 WBC 16.6 H RBC 3.84 L Hgb 8.8 L POC Hgb (Calc) Hct 28.3 L POC Hct MCV 73.7 L MCH 22.9 L MCHC 31.1 RDW 16.4 H Plt Count 388 MPV 11.3 Absolute Nucleated RBC 0.000 Nucleated RBC % (auto) 0.0 POC Std Base Excess POC O2 Sat (Calc) POC ABG pO2 POC ABG Total CO2 VBG pH VBG pCO2 VBG pO2 VBG HCO3 VBG O2 Saturation VBG Base Excess POC Capillary pH POC Capillary pCO2 POC Cap HCO3 (Calc) POC Sodium Sodium POC Potassium Potassium Chloride Carbon Dioxide Anion Gap BUN Creatinine Estim Creat Clear Calc Estimated GFR POC Glucose 317 H 108 Random Glucose Estimat Average Glucose 166 Hemoglobin A1c % 7.4 H Calcium Random Vancomycin Blood Type Antibody Screen Crossmatch 04/11/24 04/11/24 04/11/24 13:02 13:47 16:25 WBC RBC Hgb POC Hgb (Calc) 10.5 L Hct POC Hct 31 L MCV MCH MCHC RDW Plt Count MPV Absolute Nucleated RBC Nucleated RBC % (auto) POC Std Base Excess 0 POC O2 Sat (Calc) 91 POC ABG pO2 63 L POC ABG Total CO2 27 VBG pH VBG pCO2 VBG pO2 VBG HCO3 VBG O2 Saturation VBG Base Excess POC Capillary pH 7.35 POC Capillary pCO2 46 POC Cap HCO3 (Calc) 26 POC Sodium 134 L Sodium POC Potassium 5.4 H Potassium Chloride Carbon Dioxide Anion Gap BUN Creatinine Estim Creat Clear Calc Estimated GFR POC Glucose 80 83 122 H Random Glucose Estimat Average Glucose Hemoglobin A1c % Calcium Random Vancomycin Blood Type Antibody Screen Crossmatch 04/11/24 04/11/24 04/12/24 18:57 20:42 07:32 WBC RBC Hgb POC Hgb (Calc) Hct POC Hct MCV MCH MCHC RDW Plt Count MPV Absolute Nucleated RBC Nucleated RBC % (auto) POC Std Base Excess POC O2 Sat (Calc) POC ABG pO2 POC ABG Total CO2 VBG pH VBG pCO2 VBG pO2 VBG HCO3 VBG O2 Saturation VBG Base Excess POC Capillary pH POC Capillary pCO2 POC Cap HCO3 (Calc) POC Sodium Sodium POC Potassium Potassium Chloride Carbon Dioxide Anion Gap BUN Creatinine Estim Creat Clear Calc Estimated GFR POC Glucose 285 H 397 H* 529 H* Random Glucose Estimat Average Glucose Hemoglobin A1c % Calcium Random Vancomycin Blood Type Antibody Screen Crossmatch 04/12/24 04/12/24 04/12/24 08:17 11:11 12:13 WBC RBC Hgb POC Hgb (Calc) Hct POC Hct MCV MCH MCHC RDW Plt Count MPV Absolute Nucleated RBC Nucleated RBC % (auto) POC Std Base Excess POC O2 Sat (Calc) POC ABG pO2 POC ABG Total CO2 VBG pH VBG pCO2 VBG pO2 VBG HCO3 VBG O2 Saturation VBG Base Excess POC Capillary pH POC Capillary pCO2 POC Cap HCO3 (Calc) POC Sodium Sodium 131 L POC Potassium Potassium 6.5 H* Chloride 96 Carbon Dioxide 20 L Anion Gap 22 H BUN 88 H Creatinine 7.90 H* Estim Creat Clear Calc 8.3 Estimated GFR 7 POC Glucose 499 H* 509 H* Random Glucose 607 H* Estimat Average Glucose Hemoglobin A1c % Calcium 9.2 Random Vancomycin Blood Type Antibody Screen Crossmatch 04/12/24 04/12/24 04/12/24 16:23 17:12 17:58 WBC RBC Hgb POC Hgb (Calc) Hct POC Hct MCV MCH MCHC RDW Plt Count MPV Absolute Nucleated RBC Nucleated RBC % (auto) POC Std Base Excess POC O2 Sat (Calc) POC ABG pO2 POC ABG Total CO2 VBG pH 7.46 H VBG pCO2 44 VBG pO2 57 VBG HCO3 32 H VBG O2 Saturation 86.0 VBG Base Excess 7.7 POC Capillary pH POC Capillary pCO2 POC Cap HCO3 (Calc) POC Sodium Sodium POC Potassium Potassium Chloride Carbon Dioxide Anion Gap BUN Creatinine Estim Creat Clear Calc Estimated GFR POC Glucose 237 H 307 H Random Glucose Estimat Average Glucose Hemoglobin A1c % Calcium Random Vancomycin Blood Type Antibody Screen Crossmatch 04/12/24 04/12/24 04/12/24 18:20 18:38 21:03 WBC RBC Hgb POC Hgb (Calc) Hct POC Hct MCV MCH MCHC RDW Plt Count MPV Absolute Nucleated RBC Nucleated RBC % (auto) POC Std Base Excess POC O2 Sat (Calc) POC ABG pO2 POC ABG Total CO2 VBG pH VBG pCO2 VBG pO2 VBG HCO3 VBG O2 Saturation VBG Base Excess POC Capillary pH POC Capillary pCO2 POC Cap HCO3 (Calc) POC Sodium Sodium 139 POC Potassium Potassium 4.0 D Chloride 101 Carbon Dioxide 25 Anion Gap 17 BUN 33 H Creatinine 3.27 H Estim Creat Clear Calc 20.2 Estimated GFR 19 POC Glucose 400 H* Random Glucose 281 H Estimat Average Glucose Hemoglobin A1c % Calcium 8.8 Random Vancomycin 10.7 L Blood Type Antibody Screen Crossmatch 04/12/24 04/15/24 04/15/24 23:12 07:13 09:48 WBC 19.9 H RBC 3.26 L Hgb 7.6 L POC Hgb (Calc) Hct 23.7 L POC Hct MCV 72.7 L MCH 23.3 L MCHC 32.1 RDW 16.2 H Plt Count 446 H MPV 10.5 Absolute Nucleated RBC 0.000 Nucleated RBC % (auto) 0.0 POC Std Base Excess POC O2 Sat (Calc) POC ABG pO2 POC ABG Total CO2 VBG pH VBG pCO2 VBG pO2 VBG HCO3 VBG O2 Saturation VBG Base Excess POC Capillary pH POC Capillary pCO2 POC Cap HCO3 (Calc) POC Sodium Sodium 131 L POC Potassium Potassium 6.8 H* D Chloride 94 L Carbon Dioxide 19 L Anion Gap 25 H BUN 97 H Creatinine 9.25 H* Estim Creat Clear Calc 7.1 Estimated GFR 6 POC Glucose 247 H 78 Random Glucose 193 H Estimat Average Glucose Hemoglobin A1c % Calcium 8.4 Random Vancomycin Blood Type Antibody Screen Crossmatch 04/15/24 04/15/24 04/15/24 09:52 11:53 12:28 WBC RBC Hgb POC Hgb (Calc) Hct POC Hct MCV MCH MCHC RDW Plt Count MPV Absolute Nucleated RBC Nucleated RBC % (auto) POC Std Base Excess POC O2 Sat (Calc) POC ABG pO2 POC ABG Total CO2 VBG pH 7.39 VBG pCO2 35 VBG pO2 118 VBG HCO3 21 L VBG O2 Saturation 100.0 VBG Base Excess -2.8 POC Capillary pH POC Capillary pCO2 POC Cap HCO3 (Calc) POC Sodium Sodium POC Potassium Potassium Chloride Carbon Dioxide Anion Gap BUN Creatinine Estim Creat Clear Calc Estimated GFR POC Glucose 148 H Random Glucose Estimat Average Glucose Hemoglobin A1c % Calcium Random Vancomycin Blood Type A Positive Antibody Screen NEGATIVE Crossmatch See Detail 04/15/24 04/15/24 16:34 18:23 WBC RBC Hgb POC Hgb (Calc) Hct POC Hct MCV MCH MCHC RDW Plt Count MPV Absolute Nucleated RBC Nucleated RBC % (auto) POC Std Base Excess POC O2 Sat (Calc) POC ABG pO2 POC ABG Total CO2 VBG pH VBG pCO2 VBG pO2 VBG HCO3 VBG O2 Saturation VBG Base Excess POC Capillary pH POC Capillary pCO2 POC Cap HCO3 (Calc) POC Sodium Sodium POC Potassium Potassium Chloride Carbon Dioxide Anion Gap BUN Creatinine Estim Creat Clear Calc Estimated GFR POC Glucose 107 Random Glucose Estimat Average Glucose Hemoglobin A1c % Calcium Random Vancomycin 13.0 L Blood Type Antibody Screen Crossmatch Microbiology Microbiology Results: Microbiology 04/09/24 14:48 Foot Right Gram Stain - Final 04/09/24 14:48 Foot Right Routine Culture - Final Methicillin Res Staph Aureus Enterococcus faecalis 04/05/24 12:38 Blood - Venous Blood Culture - Final No growth after 5 days. 04/05/24 12:50 Blood - Venous Blood Culture - Final No growth after 5 days. Procedures Date of Service Date of Service: 04/15/24 Assessment & Plan Assessment and plan (1) ESRD needing dialysis: Status: Acute Plan HD 3x week; Due HD today- K 1 dialysate(HD RN aware) Renal diet; Epogen for Anemia; Hold Lyrica; Next HD Monday Increase losartan to 50 mg bid;Concur with rest of medical management Time Spent With Patient Time: Total time managing care of this patient today ____ minutes. Progress Note: Quality Stroke Does the patient have a stroke diagnosis?: No
[2024-04-16] VITALS (13 sets, daily range): BP systolic 136–185; BP diastolic 74–88; PULSE 68–90; RESP 16–22; TEMP 36.6–37.4; O2SAT 90–100
[2024-04-16] MEDS: Piperacillin Sodium/Tazobactam 4.5 GM in 0.9 % Sodium Chloride 100 ML IV ×3 (00:35→19:48)
[2024-04-16] MEDS: 0.9 % Sodium Chloride Flush 3 ML SYRINGE IVFLUSH ×3 (00:38→15:50)
[2024-04-16] MEDS: Acetaminophen 325 MG TABLET 650 MG PO (01:18)
[2024-04-16] MEDS: Doxazosin Mesylate 2 MG TABLET 4 MG PO ×2 (01:36→21:04)
[2024-04-16] MEDS: levETIRAcetam 500 MG TABLET PO ×3 (01:42→20:49)
[2024-04-16] MEDS: carvediloL 6.25 MG TABLET PO ×3 (01:42→17:12)
[2024-04-16] MEDS: Losartan Potassium 50 MG TABLET PO ×2 (01:43→17:12)
[2024-04-16] MEDS: Heparin Sodium,Porcine 5,000 UNIT/ML VIAL 5000 UNIT SUBCUT ×3 (01:51→21:01)
--- NOTE | 2024-04-16 02:27 | PC.NURSE ---
Addendum entered by Zeynep Hummel RN 04/16/24 06:35: Patient declined POCT glucose check when patient came back from HD Original Note: Patient in HD from , MD Junior notified of meds not given d/t pt being in HD, Ok'd to give late
[2024-04-16 07:27] LABS: Glucose, Whole Blood 58 mg/dL (60-115)
[2024-04-16 07:38] LABS: Hematocrit 30.3 % (42.0-52.0); Hemoglobin 10.1 g/dl (14.0-18.0); Mean Corpuscular HGB Conc 33.3 g/dl (31.0-36.0); Mean Platelet Volume 10.8 fL (9.4-12.4); NRBC Pct Auto 0.1 /100WBC (0.0-0.2); Platelet Count 425 X10*3/uL (160-400); Red Blood Count 4.04 X10*6/uL (4.60-5.80); Red Cell Distribution Width 17.4 % (11.0-16.0); White Blood Count 18.5 X10*3/uL (4.8-10.8)
[2024-04-16] MEDS: Fluticasone/Umeclidinium/Vilanterol 100/62.5/25 BLST.W.DEV 1 PUFF INHALE (07:51)
[2024-04-16] MEDS: Furosemide 40 MG TABLET 80 MG PO (08:10)
[2024-04-16] MEDS: Atorvastatin Calcium 40 MG TABLET PO ×2 (08:10→08:20)
[2024-04-16] MEDS: Docusate Sodium 100 MG CAPSULE PO ×2 (08:10→20:49)
[2024-04-16 08:13] LABS: Anion Gap 20 (12-20); Blood Urea Nitrogen 49 mg/dL (9-16); Calcium 8.7 mg/dL (8.4-10.2); Carbon Dioxide 24 mmol/L (22-29); Chloride 98 mmol/L (96-108); Creatinine Clr Calc Pharmacy 11.8; Estimated Glomerular Filt Rate 10; Glucose Random 55 mg/dL (60-115); Potassium 4.8 mmol/L (3.3-5.1); Sodium 137 mmol/L (135-145)
[2024-04-16] MEDS: Aspirin Enteric Coated 81 MG TABLET.DR PO (08:20)
[2024-04-16] MEDS: hydrALAZINE HCl 25 MG TABLET PO ×4 (08:20→17:13)
[2024-04-16] MEDS: Dextrose 50 % 25 GM/50 ML SYRINGE IVPUSH (08:21)
[2024-04-16] MEDS: Acetaminophen 325 MG TABLET 975 MG PO ×3 (09:15→20:48)
--- NOTE | 2024-04-16 10:08 | HO.VASCPN ---
Subjective Subjective Date of Service: 04/16/24 Interval history: Beau is doing ok this morning. He continues to endorse pain at the site of the BKA. Nursing notes that he did have some hypoglycemia this morning which required dextrose. His son states that he has been not eating as much and seems to be more out of it, related to the pain medication he is getting. Physical Exam Vital Signs: Vital Signs: Last Vital Signs Temp 97.9 F 04/16/24 07:49 Pulse 76 04/16/24 07:55 Resp 22 H 04/16/24 07:55 BP 140/76 H 04/16/24 07:49 Pulse Ox 97 04/16/24 07:49 O2 Del Method Nasal Cannula 04/16/24 07:49 O2 Flow Rate 2 04/16/24 07:49 Oxygen Flow Rate 2 04/15/24 14:00 BMI result Body Mass Index 28.0 Const: General: comfortable and no acute distress Orientation/consciousness: patient oriented x3 HEENT: Ears: hearing grossly normal bilaterally Resp: Effort & Inspection: normal respiratory effort and able to speak in complete sentences Auscultation: clear to auscultation bilaterally Cardio: Rate: regular rate Rhythm: regular rhythm Heart sounds: S1 normal heart sound present and S2 normal heart sound present Bruits: no abdominal aortic bruits, no carotid bruits, no femoral bruits and no renal bruits GI: Palpation (GI): No Abdominal aortic bruit present Neuro: General: patient oriented x3 Cranial nerves: Yes CN's II-XII intact bilaterally Extrem: Other: Right BKA site: Dressing intact, no drainage noted. Dressing not taken down this morning. Progress Note: A&P Assessment and plan (1) Hx of right BKA: Status: Acute Assessment and Plan: Beau is doing okay this morning. His family has concerns with sedation pain medication. Dr. Reid and I did discuss with them that we will decrease the pain medication dosages as well as scheduled Tylenol for the pain. We discussed the importance of a well-balanced diet for blood sugar control. He has been seen by PT and OT, who recommended short-term rehab. I believe that will be best for him at this point as well. We will continue to monitor. If there are any questions or concerns, please do not hesitate to reach out to us. Time Spent With Patient Time: Total time managing care of this patient today ____ minutes. Procedures Date of Service Date of Service: 04/16/24 Quality Stroke Does the patient have a stroke diagnosis?: No VTE Prior VTE?: No VTE Risk Level:: Medical - moderate - high VTE Device Contraindication: Treatment Not Indicated VTE Drug Contraindication: N/A - Med Ordered
[2024-04-16 11:02] LABS: Glucose, Whole Blood 57 mg/dL (60-115)
[2024-04-16 11:02] LABS: Glucose, Whole Blood 213 mg/dL (60-115)
--- NOTE | 2024-04-16 11:09 | P.PNIM_ITS ---
Subjective Subjective Date of Service: 04/16/24 Interval History: toxic metabolic encephalopathy postop anemia Review of Systems Mental status improving-seems more awke and more conversive has dry cough denies any chest pain or abd pain Physical Exam 2 Vital Signs: Vital Signs: Last Vital Signs Temp 97.9 F 04/16/24 07:49 Pulse 76 04/16/24 07:55 Resp 22 H 04/16/24 07:55 BP 140/76 H 04/16/24 07:49 Pulse Ox 97 04/16/24 07:49 O2 Del Method Nasal Cannula 04/16/24 07:49 O2 Flow Rate 2 04/16/24 07:49 Oxygen Flow Rate 2 04/15/24 14:00 BMI result Body Mass Index 28.0 Neck supple no JVD. Lungs-air entry fair ,slightly diminshed at bases. Heart S1-S2 heard no gallop or rub. Abdomen soft nontender. skin:has bka Neuro aox2 No asterixis. Extremities no edema. Objective Data Active Medications Acetaminophen (Acetaminophen 325 Mg Tablet) 975 mg PO Q6H ON LICENSE OF [facility] Last Admin: 04/16/24 09:15 Dose: 975 mg Documented By: FRANCISCO Al Hydroxide/Mg Hydroxide (Magnesium Hydrox/Alum Hydrox 30 Ml Oral.Susp) 30 ml PO Q4H PRN PRN Reason: Heartburn Albuterol Sulfate (Albuterol Sulfate 90 Mcg 8 Gm Inhaler) 2 puff INHALE Q4H PRN PRN Reason: Shortness Of Breath Allopurinol (Allopurinol 100 Mg Tablet) 100 mg PO MOWEFR@1600 ON LICENSE OF [facility] Last Admin: 04/15/24 16:13 Dose: 100 mg Documented By: RAY Aspirin (Aspirin Enteric Coated 81 Mg Tablet.) 81 mg PO MOWEFR@1600 ON LICENSE OF [facility] Last Admin: 04/15/24 16:12 Dose: 81 mg Documented By: RAY Aspirin (Aspirin Enteric Coated 81 Mg Tablet.) 81 mg PO SUTUTHSA@ ON LICENSE OF [facility] Last Admin: 04/16/24 08:20 Dose: 81 mg Documented By: FRANCISCO Atorvastatin Calcium (Atorvastatin Calcium 40 Mg Tablet) 40 mg PO MOWEFR@1600 ON LICENSE OF [facility] Last Admin: 04/16/24 08:10 Dose: 40 mg Documented By: FRANCISCO Atorvastatin Calcium (Atorvastatin Calcium 40 Mg Tablet) 40 mg PO SUTUTHSA@0900 ON LICENSE OF [facility] Last Admin: 04/16/24 08:20 Dose: 40 mg Documented By: FRANCISCO Bisacodyl (Bisacodyl 10 Mg Supp.Rect) 10 mg GA DAILY PRN PRN Reason: Constipation Calcium Carbonate (Calcium Carbonate 750 Mg Tab.Chew) 750 mg PO Q4H PRN PRN Reason: Heartburn Carvedilol (Carvedilol 6.25 Mg Tablet) 6.25 mg PO BID ON LICENSE OF [facility]; Protocol Last Admin: 04/16/24 08:10 Dose: 6.25 mg Documented By: FRANCISCO Dextrose (Dextrose 50 % 25 Gm/50 Ml Syringe) 25 gm IVPUSH Q15M PRN; Protocol PRN Reason: per Hypoglycemia Standing Ord. Last Admin: 04/16/24 08:21 Dose: 25 gm Documented By: FRANCISCO Docusate Sodium (Docusate Sodium 100 Mg Capsule) 100 mg PO BID ON LICENSE OF [facility] Last Admin: 04/16/24 08:10 Dose: 100 mg Documented By: FRANCISCO Doxazosin Mesylate (Doxazosin Mesylate 2 Mg Tablet) 4 mg PO BEDTIME ON LICENSE OF [facility]; Protocol Last Admin: 04/16/24 01:36 Dose: 4 mg Documented By: JEAN Comments: pt in HD, waiting on MD approval to give Epoetin Keegan-epbx (Epoetin Keegan-Epbx 10,000 Unit/Ml Vial) 10,000 unit SUBCUT MoWeFr@7617 ON LICENSE OF [facility] Last Admin: 04/15/24 19:25 Dose: Not Given Documented By: RAY Non-Admin Reason: Med Not Available Fluticasone Propionate (Fluticasone Propionate Nasal 16 Gm [place]) 1 spray NOSTRIL-B BID ON LICENSE OF [facility] Last Admin: 04/16/24 08:20 Dose: Not Given Documented By: FRANCISCO Non-Admin Reason: Med Not Available Fluticasone/Umeclidinium/Vilanterol (Fluticasone/Umeclidinium/Vilanterol 100/62.5/25 Blst.W.Dev) 1 puff INHALE RDAILY ON LICENSE OF [facility] Last Admin: 04/16/24 07:51 Dose: 1 puff Documented By: EMELIA Furosemide (Furosemide 40 Mg Tablet) 80 mg PO MOWEFR@1600 ON LICENSE OF [facility]; Protocol Last Admin: 04/15/24 16:10 Dose: 80 mg Documented By: RAY Furosemide (Furosemide 40 Mg Tablet) 80 mg PO SUTUTHSA@0900 ON LICENSE OF [facility]; Protocol Last Admin: 04/16/24 08:10 Dose: 80 mg Documented By: FRANCISCO Glucose (Glucose Gel 15 Gm Gel..Gram.) 15 gm PO Q15M PRN; Protocol PRN Reason: per Hypoglycemia Standing Ord. Heparin Sodium (Porcine) (Heparin Sodium,Porcine 5,000 Unit/Ml Vial) 5,000 unit SUBCUT BID ON LICENSE OF [facility] Last Admin: 04/16/24 08:11 Dose: 5,000 unit Documented By: FRANCISCO Hydralazine HCl (Hydralazine Hcl 25 Mg Tablet) 25 mg PO MOWEFR@1600 ON LICENSE OF [facility]; Protocol Last Admin: 04/15/24 16:13 Dose: 25 mg Documented By: RAY Hydralazine HCl (Hydralazine Hcl 25 Mg Tablet) 25 mg PO SUTUTHSA@09,15,21 ON LICENSE OF [facility]; Protocol Last Admin: 04/16/24 08:20 Dose: 25 mg Documented By: FRANCISCO Piperacillin Sod/Tazobactam (Sod 4.5 gm/ Sodium Chloride) 100 mls @ 200 mls/hr IV Q12H ON LICENSE OF [facility] Last Infusion: 04/16/24 09:00 Dose: Infused Documented By: FRANCISCO Insulin Human Lispro (Insulin Lispro 100 Unit/Ml 3 Ml Vial) 0 unit SUBCUT QIDACHS ON LICENSE OF [facility]; Protocol Last Admin: 04/16/24 07:32 Dose: Not Given Documented By: FRANCISCO Non-Admin Reason: No Insulin Coverage Levetiracetam (Levetiracetam 500 Mg Tablet) 500 mg PO BID ON LICENSE OF [facility] Last Admin: 04/16/24 08:10 Dose: 500 mg Documented By: FRANCISCO Magnesium Hydroxide (Milk Of Magnesia 30 Ml Oral.Susp) 30 ml PO DAILY PRN PRN Reason: Constipation Last Admin: 04/09/24 21:34 Dose: 30 ml Documented By: YAKOV-JENNIFER Melatonin (Melatonin 3 Mg Tablet) 6 mg PO BEDTIME PRN PRN Reason: Insomnia Naloxone HCl (Naloxone Hcl 0.4 Mg/Ml Vial) 0.04 mg IVPUSH Q5M PRN PRN Reason: Excessive sedation or RR < 8 Non-Formulary Medication (Sucroferric Oxyhydroxide [Velphoro]) 500 mg PO TID ON LICENSE OF [facility] Omeprazole (Omeprazole 20 Mg Capsule.Dr) 20 mg PO DAILY@0630 ON LICENSE OF [facility] Last Admin: 04/16/24 05:51 Dose: Not Given Documented By: JEAN Non-Admin Reason: Patient Refused Ondansetron HCl (Ondansetron Hcl 4 Mg/2 Ml Vial) 4 mg IVPUSH Q8H PRN PRN Reason: Nausea and Vomiting Polyethylene Glycol (Polyethylene Glycol 3350 17 Gm Powd.Pack) 17 gm PO DAILY PRN PRN Reason: Constipation Senna (Sennosides 8.6 Mg Tablet) 8.6 mg PO DAILY PRN PRN Reason: Constipation Sodium Chloride (0.9 % Sodium Chloride Flush 3 Ml Syringe) 3 ml IVFLUSH QSHIFT ON LICENSE OF [facility] Last Admin: 04/16/24 08:12 Dose: 3 ml Documented By: ROSAAC Labs 04/16/24 07:17 04/16/24 07:17 Labs: Laboratory Results - last 24 hr 04/11/24 04/11/24 04/11/24 06:34 07:29 10:55 POC Hgb (Calc) POC Hct MCV 73.7 L MCH 22.9 L MCHC 31.1 RDW 16.4 H Plt Count 388 MPV 11.3 Absolute Nucleated RBC 0.000 Nucleated RBC % (auto) 0.0 POC Std Base Excess POC O2 Sat (Calc) POC ABG pO2 POC ABG Total CO2 VBG pH VBG pCO2 VBG pO2 VBG HCO3 VBG O2 Saturation VBG Base Excess POC Capillary pH POC Capillary pCO2 POC Cap HCO3 (Calc) POC Sodium POC Potassium Anion Gap Estim Creat Clear Calc Estimated GFR POC Glucose 317 H 108 Random Glucose Estimat Average Glucose 166 Hemoglobin A1c % 7.4 H Calcium Random Vancomycin Blood Type Antibody Screen Crossmatch 04/11/24 04/11/24 04/11/24 13:02 13:47 16:25 POC Hgb (Calc) 10.5 L POC Hct 31 L MCV MCH MCHC RDW Plt Count MPV Absolute Nucleated RBC Nucleated RBC % (auto) POC Std Base Excess 0 POC O2 Sat (Calc) 91 POC ABG pO2 63 L POC ABG Total CO2 27 VBG pH VBG pCO2 VBG pO2 VBG HCO3 VBG O2 Saturation VBG Base Excess POC Capillary pH 7.35 POC Capillary pCO2 46 POC Cap HCO3 (Calc) 26 POC Sodium 134 L POC Potassium 5.4 H Anion Gap Estim Creat Clear Calc Estimated GFR POC Glucose 80 83 122 H Random Glucose Estimat Average Glucose Hemoglobin A1c % Calcium Random Vancomycin Blood Type Antibody Screen Crossmatch 04/11/24 04/11/24 04/12/24 18:57 20:42 07:32 POC Hgb (Calc) POC Hct MCV MCH MCHC RDW Plt Count MPV Absolute Nucleated RBC Nucleated RBC % (auto) POC Std Base Excess POC O2 Sat (Calc) POC ABG pO2 POC ABG Total CO2 VBG pH VBG pCO2 VBG pO2 VBG HCO3 VBG O2 Saturation VBG Base Excess POC Capillary pH POC Capillary pCO2 POC Cap HCO3 (Calc) POC Sodium POC Potassium Anion Gap Estim Creat Clear Calc Estimated GFR POC Glucose 285 H 397 H* 529 H* Random Glucose Estimat Average Glucose Hemoglobin A1c % Calcium Random Vancomycin Blood Type Antibody Screen Crossmatch 04/12/24 04/12/24 04/12/24 08:17 11:11 12:13 POC Hgb (Calc) POC Hct MCV MCH MCHC RDW Plt Count MPV Absolute Nucleated RBC Nucleated RBC % (auto) POC Std Base Excess POC O2 Sat (Calc) POC ABG pO2 POC ABG Total CO2 VBG pH VBG pCO2 VBG pO2 VBG HCO3 VBG O2 Saturation VBG Base Excess POC Capillary pH POC Capillary pCO2 POC Cap HCO3 (Calc) POC Sodium POC Potassium Anion Gap 22 H Estim Creat Clear Calc 8.3 Estimated GFR 7 POC Glucose 499 H* 509 H* Random Glucose 607 H* Estimat Average Glucose Hemoglobin A1c % Calcium 9.2 Random Vancomycin Blood Type Antibody Screen Crossmatch 04/12/24 04/12/24 04/12/24 16:23 17:12 17:58 POC Hgb (Calc) POC Hct MCV MCH MCHC RDW Plt Count MPV Absolute Nucleated RBC Nucleated RBC % (auto) POC Std Base Excess POC O2 Sat (Calc) POC ABG pO2 POC ABG Total CO2 VBG pH 7.46 H VBG pCO2 44 VBG pO2 57 VBG HCO3 32 H VBG O2 Saturation 86.0 VBG Base Excess 7.7 POC Capillary pH POC Capillary pCO2 POC Cap HCO3 (Calc) POC Sodium POC Potassium Anion Gap Estim Creat Clear Calc Estimated GFR POC Glucose 237 H 307 H Random Glucose Estimat Average Glucose Hemoglobin A1c % Calcium Random Vancomycin Blood Type Antibody Screen Crossmatch 04/12/24 04/12/24 04/12/24 18:20 18:38 21:03 POC Hgb (Calc) POC Hct MCV MCH MCHC RDW Plt Count MPV Absolute Nucleated RBC Nucleated RBC % (auto) POC Std Base Excess POC O2 Sat (Calc) POC ABG pO2 POC ABG Total CO2 VBG pH VBG pCO2 VBG pO2 VBG HCO3 VBG O2 Saturation VBG Base Excess POC Capillary pH POC Capillary pCO2 POC Cap HCO3 (Calc) POC Sodium POC Potassium Anion Gap 17 Estim Creat Clear Calc 20.2 Estimated GFR 19 POC Glucose 400 H* Random Glucose 281 H Estimat Average Glucose Hemoglobin A1c % Calcium 8.8 Random Vancomycin 10.7 L Blood Type Antibody Screen Crossmatch 04/12/24 04/15/24 04/15/24 23:12 11:53 12:28 POC Hgb (Calc) POC Hct MCV MCH MCHC RDW Plt Count MPV Absolute Nucleated RBC Nucleated RBC % (auto) POC Std Base Excess POC O2 Sat (Calc) POC ABG pO2 POC ABG Total CO2 VBG pH VBG pCO2 VBG pO2 VBG HCO3 VBG O2 Saturation VBG Base Excess POC Capillary pH POC Capillary pCO2 POC Cap HCO3 (Calc) POC Sodium POC Potassium Anion Gap Estim Creat Clear Calc Estimated GFR POC Glucose 247 H 148 H Random Glucose Estimat Average Glucose Hemoglobin A1c % Calcium Random Vancomycin Blood Type A Positive Antibody Screen NEGATIVE Crossmatch See Detail 04/15/24 04/15/24 04/16/24 16:34 18:23 07:17 POC Hgb (Calc) POC Hct MCV 75.0 L MCH 25.0 L MCHC 33.3 RDW 17.4 H Plt Count 425 H MPV 10.8 Absolute Nucleated RBC 0.020 H Nucleated RBC % (auto) 0.1 POC Std Base Excess POC O2 Sat (Calc) POC ABG pO2 POC ABG Total CO2 VBG pH VBG pCO2 VBG pO2 VBG HCO3 VBG O2 Saturation VBG Base Excess POC Capillary pH POC Capillary pCO2 POC Cap HCO3 (Calc) POC Sodium POC Potassium Anion Gap 20 Estim Creat Clear Calc 11.8 Estimated GFR 10 POC Glucose 107 Random Glucose 55 L* Estimat Average Glucose Hemoglobin A1c % Calcium 8.7 Random Vancomycin 13.0 L Blood Type Antibody Screen Crossmatch 04/16/24 04/16/24 04/16/24 07:24 07:44 08:49 POC Hgb (Calc) POC Hct MCV MCH MCHC RDW Plt Count MPV Absolute Nucleated RBC Nucleated RBC % (auto) POC Std Base Excess POC O2 Sat (Calc) POC ABG pO2 POC ABG Total CO2 VBG pH VBG pCO2 VBG pO2 VBG HCO3 VBG O2 Saturation VBG Base Excess POC Capillary pH POC Capillary pCO2 POC Cap HCO3 (Calc) POC Sodium POC Potassium Anion Gap Estim Creat Clear Calc Estimated GFR POC Glucose 58 L* 57 L* 213 H Random Glucose Estimat Average Glucose Hemoglobin A1c % Calcium Random Vancomycin Blood Type Antibody Screen Crossmatch Assessment and Plan (1) Hx of right BKA: Status: Acute (2) ESRD needing dialysis: Status: Acute Plan 68-year-old [place]an-speaking male with a PMH significant for?ESRD on HD M/W/F last dialyzed earlier today, insulin-dependent type 2 diabetes, peripheral vascular disease, HFrEF (EF35%), HTN, HLD, chronically on 2L home O2, GERD, and ROBERT on CPAP with recent ampuation and here with post amputation complications of open,draning and likely infected woud given high WBC, and elevated ESR, he doesn't meet sepsis critieria Right TMA site wound, concern for infection and likely failed ampuation, WBC 27-->22-->20-19-18.5 Vascular surgery: OR for debridment 04/09/24, possible he will need amputation-i ncreased dry eschar/gangrene around the flap and incision site-s/p bka off antibiotics since s/p bka. hold sedative meds. vascular following possible twiching : seen by neurology: EEG revealed mild abnormality suggestive of left temporal irritability. With history of another episode, my recommendation is to start him on levetiracetam 500 mg twice a day. Toxic metabolic encephalopathy: Multifactorial likely due to Pain medications, electrolytic abnormalities, fingersticks also on the lower side. Hold pain and sedative medications. PH is normal on VBG CT head and negative hold Lantus to avoid hypoglycemia. given hd yesterday -bmp reviewed electrolytes seems impoved. Possible aspirtional pneumonia : cxr-? right lower pneumonia added speechand swallow on zosyn Hypertension: Blood pressure fluctuating Discussed with Nephrology continue hydralazine,coreg, lasix, losartan ,also going for hd today Continue to monitor blood pressure needed may need use IV hydralazine. ESRD on HD M/W/F acute blood loss anemia on ch anemia: due to postop s/p 2 prbc -h/h improved to 10. moniter cbc Insulin-dependent type 2 diabetes: persistent hyperglycemia sec to diet noncomplance adjusted lantus 15 units qhs fs with coverage. HLD/PAD Continue aspirin, statin Gout Continue allopurinol GERD PPI Full Code DVT Prophylaxis: Heparin Above management discussed with the patient family in detail length at the bedside, staff present. Quality Stroke Does the patient have a stroke diagnosis?: No VTE Prior VTE?: No VTE Risk Level:: Medical - moderate - high VTE Device Contraindication: Treatment Not Indicated VTE Drug Contraindication: N/A - Med Ordered
[2024-04-16 11:10] LABS: Glucose, Whole Blood 198 mg/dL (60-115)
[2024-04-16] MEDS: Insulin Lispro 100 UNIT/ML 3 ML VIAL SUBCUT ×2 (11:40→21:01)
--- NOTE | 2024-04-16 14:24 | P.PNNP_ITS ---
Subjective Subjective Date of Service: 04/16/24 Interval history: Events noted. All recent data reviewed; D/W Hospitalist Physical Exam 2 Vital Signs: Vital Signs: Last Vital Signs Temp 98.7 F 04/16/24 11:54 Pulse 77 04/16/24 11:54 Resp 20 04/16/24 11:54 BP 136/80 04/16/24 11:54 Pulse Ox 100 04/16/24 11:54 O2 Del Method Nasal Cannula 04/16/24 11:54 O2 Flow Rate 2 04/16/24 11:54 Oxygen Flow Rate 2 04/15/24 14:00 BMI result Body Mass Index 28.0 Const: General: no acute distress Eyes: EOM: EOMs intact bilaterally Resp: Auscultation: diminished lung sounds Cardio: Rate: regular rate GI: Palpation (GI): Soft to palpation Skin: General skin exam: no rashes or lesions noted Objective Data Labs 04/16/24 07:17 04/16/24 07:17 Labs: Laboratory Results - last 24 hr 04/12/24 04/12/24 04/12/24 07:32 11:11 12:13 WBC RBC Hgb Hct MCV MCH MCHC RDW Plt Count MPV Absolute Nucleated RBC Nucleated RBC % (auto) VBG pH VBG pCO2 VBG pO2 VBG HCO3 VBG O2 Saturation VBG Base Excess Sodium Potassium Chloride Carbon Dioxide Anion Gap BUN Creatinine Estim Creat Clear Calc Estimated GFR POC Glucose 529 H* 499 H* 509 H* Random Glucose Calcium Random Vancomycin Blood Type Antibody Screen Crossmatch 04/12/24 04/12/24 04/12/24 16:23 17:12 17:58 WBC RBC Hgb Hct MCV MCH MCHC RDW Plt Count MPV Absolute Nucleated RBC Nucleated RBC % (auto) VBG pH 7.46 H VBG pCO2 44 VBG pO2 57 VBG HCO3 32 H VBG O2 Saturation 86.0 VBG Base Excess 7.7 Sodium Potassium Chloride Carbon Dioxide Anion Gap BUN Creatinine Estim Creat Clear Calc Estimated GFR POC Glucose 237 H 307 H Random Glucose Calcium Random Vancomycin Blood Type Antibody Screen Crossmatch 04/12/24 04/12/24 04/15/24 21:03 23:12 12:28 WBC RBC Hgb Hct MCV MCH MCHC RDW Plt Count MPV Absolute Nucleated RBC Nucleated RBC % (auto) VBG pH VBG pCO2 VBG pO2 VBG HCO3 VBG O2 Saturation VBG Base Excess Sodium Potassium Chloride Carbon Dioxide Anion Gap BUN Creatinine Estim Creat Clear Calc Estimated GFR POC Glucose 400 H* 247 H Random Glucose Calcium Random Vancomycin Blood Type A Positive Antibody Screen NEGATIVE Crossmatch See Detail 04/15/24 04/15/24 04/16/24 16:34 18:23 07:17 WBC 18.5 H RBC 4.04 L D Hgb 10.1 L D Hct 30.3 L D MCV 75.0 L MCH 25.0 L MCHC 33.3 RDW 17.4 H Plt Count 425 H MPV 10.8 Absolute Nucleated RBC 0.020 H Nucleated RBC % (auto) 0.1 VBG pH VBG pCO2 VBG pO2 VBG HCO3 VBG O2 Saturation VBG Base Excess Sodium 137 Potassium 4.8 D Chloride 98 Carbon Dioxide 24 Anion Gap 20 BUN 49 H Creatinine 5.56 H* Estim Creat Clear Calc 11.8 Estimated GFR 10 POC Glucose 107 Random Glucose 55 L* Calcium 8.7 Random Vancomycin 13.0 L Blood Type Antibody Screen Crossmatch 04/16/24 04/16/24 04/16/24 07:24 07:44 08:49 WBC RBC Hgb Hct MCV MCH MCHC RDW Plt Count MPV Absolute Nucleated RBC Nucleated RBC % (auto) VBG pH VBG pCO2 VBG pO2 VBG HCO3 VBG O2 Saturation VBG Base Excess Sodium Potassium Chloride Carbon Dioxide Anion Gap BUN Creatinine Estim Creat Clear Calc Estimated GFR POC Glucose 58 L* 57 L* 213 H Random Glucose Calcium Random Vancomycin Blood Type Antibody Screen Crossmatch 04/16/24 11:04 WBC RBC Hgb Hct MCV MCH MCHC RDW Plt Count MPV Absolute Nucleated RBC Nucleated RBC % (auto) VBG pH VBG pCO2 VBG pO2 VBG HCO3 VBG O2 Saturation VBG Base Excess Sodium Potassium Chloride Carbon Dioxide Anion Gap BUN Creatinine Estim Creat Clear Calc Estimated GFR POC Glucose 198 H Random Glucose Calcium Random Vancomycin Blood Type Antibody Screen Crossmatch Microbiology Microbiology Results: Microbiology 04/09/24 14:48 Foot Right Gram Stain - Final 04/09/24 14:48 Foot Right Routine Culture - Final Methicillin Res Staph Aureus Enterococcus faecalis 04/05/24 12:38 Blood - Venous Blood Culture - Final No growth after 5 days. 04/05/24 12:50 Blood - Venous Blood Culture - Final No growth after 5 days. Procedures Date of Service Date of Service: 04/16/24 Assessment & Plan Assessment and plan (1) ESRD needing dialysis: Status: Acute Plan HD 3x week; Due HD tomorrow- K normailized Renal diet; Epogen for Anemia; Hold Lyrica; Next HD Monday C/W losartan 50 mg bid;Concur with rest of medical management Progress Note: Quality Stroke Does the patient have a stroke diagnosis?: No
[2024-04-16 17:06] LABS: Glucose, Whole Blood 129 mg/dL (60-115)
--- NOTE | 2024-04-16 18:44 | MHC.SL.SWA ---
Speech Pathologist Impression: Mild Oral Phase Dysphagia Dysphasia Diet Status: No Change Liquid Consistency and Strategies for Safe Swallow: Liquid Intake Recommendation: Thin Liquid Intake Strategies: Small Sips Solid Food Consistency: Dietary Recommendations: Regular Additional Modifications to Solid Foods: Patient presents with mild oral phase dysphagia characterized by mildly prolonged, piece meal chewing and presence of mild oral residuals. Patient is able to clear residue with dry swallows. No s/s of aspiration with liquid intake. Recommend CONTINUE on REGULAR solids and THIN liquids, pills WHOLE with LIQUID. Patient will need 1:1 assistance at meal time. Oral Medication Intake: Whole with Liquid Please contact the pharmacy regarding appropriate crushable or liquid drug formulations that are available whenever modified delivery is recommended. Compensatory Strategies and Precautions to be Taken for Safe Swallow: Sitting Upright (90 deg) Small Bites and Sips Alternate Liquids/Solids Rate of Ingestion Change Supervision While Eating and Drinking for Safe Swallow: Total Assistance (1:1) Swallowing Recommended Treatments: Compens. Strategy Educat. Recommendation for Speech: Inpatient Speech Therapy Comment: 1 f/u Frequency/Duration: Date Range for Service Req: Timeline to reassess: Mortgage Loan Funder Clinican/Clinical Fellow: No Supervisory Statement: I have reviewed and agree with the student/clinical fellow's documentation: N/A Speech Language Pathologist: Cinthya Montalvo M.A., CCC-PROGRAM MANAGER TRANSPORTATION
[2024-04-16] MEDS: Fluticasone Propionate Nasal 16 GM SPRAY 1 SPRAY NOSTRIL-B (20:51)
[2024-04-16 20:57] LABS: Glucose, Whole Blood 218 mg/dL (60-115)
[2024-04-17] VITALS (11 sets, daily range): BP systolic 136–164; BP diastolic 68–114; PULSE 63–76; RESP 18–22; TEMP 36.6–37.2; O2SAT 92–97
[2024-04-17] MEDS: 0.9 % Sodium Chloride Flush 3 ML SYRINGE IVFLUSH ×3 (00:57→15:43)
[2024-04-17] MEDS: Acetaminophen 325 MG TABLET 975 MG PO ×3 (03:37→15:40)
[2024-04-17] MEDS: Omeprazole 20 MG CAPSULE.DR PO (06:00)
[2024-04-17 07:38] LABS: Glucose, Whole Blood 80 mg/dL (60-115)
[2024-04-17] MEDS: Fluticasone/Umeclidinium/Vilanterol 100/62.5/25 BLST.W.DEV 1 PUFF INHALE (08:34)
[2024-04-17 08:35] LABS: Hematocrit 29.5 % (42.0-52.0); Hemoglobin 9.6 g/dl (14.0-18.0); Mean Corpuscular HGB Conc 32.5 g/dl (31.0-36.0); Mean Corpuscular Hemoglobin 24.8 pg (27.0-33.0); Mean Corpuscular Volume 76.2 fL (80.0-98.0); Mean Platelet Volume 10.4 fL (9.4-12.4); NRBC Pct Auto 0.1 /100WBC (0.0-0.2); Platelet Count 400 X10*3/uL (160-400); Red Blood Count 3.87 X10*6/uL (4.60-5.80); Red Cell Distribution Width 18.4 % (11.0-16.0); White Blood Count 17.1 X10*3/uL (4.8-10.8)
[2024-04-17] MEDS: Heparin Sodium,Porcine 5,000 UNIT/ML VIAL 5000 UNIT SUBCUT (09:10)
[2024-04-17] MEDS: Piperacillin Sodium/Tazobactam 4.5 GM in 0.9 % Sodium Chloride 100 ML IV (09:10)
[2024-04-17] MEDS: carvediloL 6.25 MG TABLET PO (09:10)
[2024-04-17] MEDS: levETIRAcetam 500 MG TABLET PO (09:11)
[2024-04-17] MEDS: Docusate Sodium 100 MG CAPSULE PO (09:11)
[2024-04-17] MEDS: Losartan Potassium 50 MG TABLET PO (09:11)
[2024-04-17] MEDS: Fluticasone Propionate Nasal 16 GM SPRAY 1 SPRAY NOSTRIL-B (09:13)
--- NOTE | 2024-04-17 09:34 | PM.DS ---
DS: Providers Provider Date of Service: 04/17/24 Date of admission: 04/05/24 14:22 Date of discharge: 04/17/24 Primary care physician: Shayla Augustine NP Consults: 04/05/24 14:08 Consult to Nephrology Routine Consulting Provider: [facility] [place] [facility] Reason for consultation: esrd HD MWF Has provider been notified: Yes 04/07/24 10:06 Consult to Vascular Surgery Routine Consulting Provider: [facility] [place] [facility] Reason for consultation: Nonhealing amputation Has provider been notified: Yes 04/08/24 10:19 Consult to Wound Care Routine Reason for consultation: Right TMA site 04/10/24 11:56 Consult to Neurology Routine Consulting Provider: [facility] Reason for consultation: ? right side weakness/2 weeks -worening Has provider been notified: No DS: Diagnosis Discharge Diagnosis (1) Hx of right BKA: Status: Acute (2) ESRD needing dialysis: Status: Acute DS: Summary Hospital Course Hospital Course: From the admission H&P: Chief Complaint: Ampuated wound ? infection Pt is a 68-year-old Chadian-speaking male with a PMH significant for?ESRD on HD M/W/F last dialyzed earlier today, insulin-dependent type 2 diabetes, peripheral vascular disease, HFrEF (EF35%), HTN, HLD, chronically on 2L home O2, GERD, and ROBERT on CPAP, PVD recent Right TMA on 03/19 osteomylitis of toes and non healing wound and was discharged to rehab for wound care. He was sent from dialysis due tth open wound that is draining,and family increasingly concerned about his care at the facility. He had a vascular follow up appointment 04/02 during which no major concerns were raised about the wound which appear to be much worse today (see pic below), although hard to tell if infected or not, at any event the vascular surgeon is recommending IV Abx and is not excluding the posibility of further ampuation at this time. He has no fever, yet WBC is 26K. ESR is 98. Planin dickson shows s/p ampuation and no evidence of osteomyelitis (OM), he is initiated on vancomycin and Zosyn. Hospital Course by discharge diagnosis: 1. Infected TMA amputation site, Right BKA 1a. Acute Blood loss anemia. Patient was admitted for infection of the amputation site of his prior TMA due to diabetic foot ulcer. The patient was treated with IV antibiotics. He was seen in consultation by vascular surgery. He underwent debridement of the wound, however the foot continued to deteriorate and ultimately the patient underwent a R BKA. Postoperatively, the patient was noted to have anemia and was transfused 2 units of packed red cells. His H&H has been stable. Patient was seen by vascular surgery on the day prior to discharge with recommendations for dressing changes as follows: Xeroform followed by 4 x 4 then wrapped in Kerlix. He is to follow up with vascular surgery 2 weeks from his surgery date for wound care and staple removal. 2. Toxic/metabolic encephalopathy 2a. Diabetes mellitus with labile blood sugars Patient noted to have significantly elevated sugars as well as significantly low sugars. Patient is symptomatic with this low sugars. At home patient is on sliding scale as well as 22 units of Lantus. Given his significant and symptomatic hypoglycemia, the patient's Lantus has been discontinue for the time being. Should his sugars become elevated, lantus can be restarted -- possibly at lower dose of 10 units. His A1c is around 7. He can continue sliding scale at home. He has been educated on the importance of eating regular meals. 3. Aspiration pneumonia Hospital course complicated by what appears to be aspiration pneumonia. He was treated with 2 days of IV Zosyn and will be transitioned to 5 more days of p.o. Augmentin 4. Seizures Patient was noted to have twitching and underwent workup including EEG and neurology evaluation. EEG revealed mild abnormality suggestive of left temporal irritability. Neurology suggested initiation of Keppra 500 mg twice daily which has been done and he will be discharged on the same. 5. ESRD on HD MWF -- can continue the same as outpatient 6. HTN labile but stable last 24 hours -- can continue his home regime and have adjustments as outpatient as needed 7. GERD PPI 8. Gout allopurinol 9. Generalized weakness seen and evaluated by PT with recs for STR. Pt and son opted for home with services which will be arranged. Pt is seen and examined on the day of discharge. He is due to dialysis today and will be d/c afterwards. Discharge plan reviewed with son and pt and they are in agreement with discharge. All questions have been answered. Time Attestation Discharge Coordination Time (in mins): 50 Quality: Safe Use of Opioids Does Pt have an Active Cancer Diagnosis on the Problem List?: No Quality: Stroke Does the patient have a stroke diagnosis?: No Physical Exam Vital Signs: Vital Signs: Last Vital Signs Temp 98.9 F 04/17/24 08:00 Pulse 76 04/17/24 09:10 Resp 18 04/17/24 08:36 BP 136/72 04/17/24 09:11 Pulse Ox 93 04/17/24 08:00 O2 Del Method Room Air 04/17/24 08:00 O2 Flow Rate 2 04/17/24 00:00 Oxygen Flow Rate 2 04/15/24 14:00 BMI result Body Mass Index 28.0 Const: Other: General - no acute distress, appears comfortable Cardiovascular - regular rate and rhythm, S1-S2 Lungs - normal respiratory effort, clear to auscultation bilaterally, no wheezing Abdomen - soft, nontender, no rebound or guarding Extremities - BKA with dressing Neuro - awake and alert, no focal deficits DS: Data Data Completed and Pending Completed studies during hospitalization [Text1]: Pending at discharge 04/11/24 14:25 Surgical [PTH] Routine Procedures Detachment at Right 1st Toe, Complete, Open Approach (03/19/24) Detachment at Right 2nd Toe, Complete, Open Approach (03/19/24) Detachment at Right 3rd Toe, Complete, Open Approach (03/19/24) Detachment at Right 4th Toe, Complete, Open Approach (03/19/24) Detachment at Right 5th Toe, Complete, Open Approach (03/19/24) Drainage of Right Pleural Cavity with Drainage Device, Percutaneous Approach (11/28/23) Drainage of Right Pleural Cavity, Percutaneous Approach (04/10/23) Introduction of Other Therapeutic Substance into Pleural Cavity, Percutaneous Approach (09/30/23) Introduction of Other Thrombolytic into Pleural Cavity, Percutaneous Approach (09/30/23) Performance of Urinary Filtration, Intermittent, Less than 6 Hours Per Day (03/19/24) Labs on day of discharge: Laboratory Results - last 24 hr 04/16/24 04/16/24 04/16/24 07:44 08:49 11:04 WBC RBC Hgb Hct MCV MCH MCHC RDW Plt Count MPV Absolute Nucleated RBC Nucleated RBC % (auto) POC Glucose 57 L* 213 H 198 H 04/16/24 04/16/24 04/17/24 17:03 20:48 07:11 WBC RBC Hgb Hct MCV MCH MCHC RDW Plt Count MPV Absolute Nucleated RBC Nucleated RBC % (auto) POC Glucose 129 H 218 H 80 04/17/24 08:13 WBC 17.1 H RBC 3.87 L Hgb 9.6 L Hct 29.5 L MCV 76.2 L MCH 24.8 L MCHC 32.5 RDW 18.4 H Plt Count 400 MPV 10.4 Absolute Nucleated RBC 0.020 H Nucleated RBC % (auto) 0.1 POC Glucose Discharge Plan Discharge Anticipated Discharge Date/Time: 04/17/24 10:42 Patient Disposition: Home Health Service Discharge Diagnosis: BKA Referrals: Shayla Augustine NP [Primary Care Provider] - 1 Week Baltazar Cannon MD [Physician] - 1 Week (call office to make appt) Discharge Medications: New amoxicillin-pot clavulanate 500-125 mg tablet 1 tab PO BID Qty: 10 0RF levetiracetam 500 mg Tablet 500 mg PO BID Qty: 180 0RF Continued (DME) PleurX catheter drainage kits 1000cc kits See Rx Instructions .Route .MEDSUPPLY Qty: 10 6RF Rx Instructions: As directed atorvastatin 40 mg tablet 40 mg PO SUTUTHSA@0900 ipratropium-albuterol 0.5 mg-3 mg(2.5 mg base)/3 mL solution for nebulization 3 ml INHALATION QID PRN (Reason: Wheezing) allopurinol 100 mg tablet 100 mg PO MOWEFR@1600 Rx Instructions: GIVE AFTER DIALYSIS furosemide 80 mg tablet 80 mg PO SUTUTHSA@0900 omeprazole 20 mg capsule,delayed release(DR/EC) 20 mg PO DAILY@0630 doxazosin 4 mg tablet 4 mg PO BEDTIME albuterol sulfate 90 mcg/actuation HFA aerosol inhaler 2 puff INHALATION Q4H PRN (Reason: Shortness Of Breath) fluticasone propionate 50 mcg/actuation Oden,Suspension 1 spray intranasal BID Qty: 16 0RF Velphoro 500 mg tablet,chewable 500 mg PO TID hydralazine 25 mg tablet 25 mg PO SUTUTHSA@09,15,21 insulin lispro 100 unit/mL insulin pen 1 sliding scale dose subcut TIDAC Rx Instructions: 200-249 - 2 UNITS 250-299 4 UNITS, 300-349 6 UNITS 350-439 8 UNITS 400+ CALL aspirin 81 mg tablet,delayed release (DR/EC) 81 mg PO SUTUTHSA@09 pregabalin 75 mg capsule 75 mg PO SUTUTHSA@09,15,21 pantoprazole 40 mg tablet,delayed release (DR/EC) 40 mg PO DAILY oxycodone 5 mg tablet 5 mg PO Q6H PRN (Reason: pain) atorvastatin 40 mg tablet 40 mg PO MOWEFR@1600 sennosides [senna] 8.6 mg Tablet 8.6 mg PO DAILY PRN (Reason: Constipation) acetaminophen 325 mg Tablet 650 mg PO Q4H PRN (Reason: PAIN/FEVER) hydralazine 25 mg Tablet 25 mg PO MOWEFR@1600 aspirin 81 mg Tablet,Delayed Release (Dr/Ec) 81 mg PO MOWEFR@1600 furosemide 80 mg tablet 80 mg PO MOWEFR@1600 bisacodyl [Dulcolax (bisacodyl)] 10 mg Suppository 10 mg AK DAILY PRN (Reason: Constipation) losartan 25 mg tablet 25 mg PO MOWEFR@1600 pregabalin 75 mg capsule 75 mg PO MOWEFR@1600 Trelegy Ellipta 100-62.5-25 mcg Blister With Device 1 inh INHALATION DAILY carvedilol 6.25 mg tablet 6.25 mg PO BID Protocol: Hold for SBP/HR < HOLD for SBP < : 90 HOLD for HR < : 60 losartan 25 mg tablet 25 mg PO SUTUTHSA@0900 Protocol: Hold for SBP< HOLD for SBP < : 90 Discontinued insulin glargine [Lantus Solostar U-100 Insulin] 100 unit/mL (3 mL) insulin pen 22 unit subcut BEDTIME cephalexin [Keflex] 500 mg Capsule 500 mg PO BID Discharge Orders: Discharge Order (Routine); Ordered 04/17/24 Ordered By: Emmanuel Sharp Diet: Advance to usual diet Activity on Discharge: As tolerated Stand Alone Forms: Patient Portal Discharge page Print Language: Chadian Activity Restrictions/Additional Instructions: Wound care upon discharge: xeroform, 4x4 and Kerlix wrap to be changed daily. Please call Dr. Cannon at [phone] for 2 week follow up for suture and staple removal Care Plan Goals: Continue wound care Follow up with Vascular surgeon - call office to schedule appt for 2 weeks from his surgery Health Concerns: see d/c summary Plan of Treatment: see d/c summary Assessment: see d/c summary
--- NOTE | 2024-04-17 10:09 | HO.VASCPN ---
Subjective Subjective Date of Service: 04/17/24 Interval history: Beau is doing well this morning. He does continue to take his dressings off and we will not keep them on, despite nursing and family redirection. He is eating well and blood sugars have stabilized. Physical Exam Vital Signs: Vital Signs: Last Vital Signs Temp 98.9 F 04/17/24 08:00 Pulse 76 04/17/24 09:10 Resp 18 04/17/24 08:36 BP 136/72 04/17/24 09:11 Pulse Ox 93 04/17/24 08:00 O2 Del Method Room Air 04/17/24 08:00 O2 Flow Rate 2 04/17/24 00:00 Oxygen Flow Rate 2 04/15/24 14:00 BMI result Body Mass Index 28.0 Const: General: comfortable and no acute distress Orientation/consciousness: patient oriented x3 HEENT: Ears: hearing grossly normal bilaterally Resp: Effort & Inspection: normal respiratory effort and able to speak in complete sentences Auscultation: clear to auscultation bilaterally Cardio: Rate: regular rate Rhythm: regular rhythm Heart sounds: S1 normal heart sound present and S2 normal heart sound present Bruits: no abdominal aortic bruits, no carotid bruits, no femoral bruits and no renal bruits GI: Palpation (GI): No Abdominal aortic bruit present Neuro: General: patient oriented x3 Cranial nerves: Yes CN's II-XII intact bilaterally Extrem: Other: Right BKA site: Dressing off this morning. Site is clean, dry, and intact. No erythema noted. No bleeding or oozing/weeping noted. Progress Note: A&P Assessment and plan (1) Hx of right BKA: Status: Acute Assessment and Plan: Beau remained stable. He did have a lengthy discussion with him and his son this morning about the importance of keeping his dressing on the site. From a vascular standpoint, he is ready for discharge, whether at home with VNA services or at short-term rehab. We will follow up with him outpatient within 2 weeks. Dressing changes should be: Xeroform, 4x4s, and Kerlix wrap. This should be changed daily if possible; but if not, can be done 3 times a week. Thank you for allowing us to participate in the patient's care. There are any questions or concerns, please do not hesitate to reach out to us. Time Spent With Patient Time: Total time managing care of this patient today ____ minutes. Procedures Date of Service Date of Service: 04/17/24 Quality Stroke Does the patient have a stroke diagnosis?: No VTE Prior VTE?: No VTE Risk Level:: Medical - moderate - high VTE Device Contraindication: Treatment Not Indicated VTE Drug Contraindication: N/A - Med Ordered
--- NOTE | 2024-04-17 10:43 | W.MHC.F2F ---
Service Date Service Date: 04/17/24 Encounter Date of encounter: 04/17/24 Reasons for Services Signs and symptoms assessed: Wound Care Physical Therapy Reason for prison: postoperative assessment and/or care (Dressing changes should be: Xeroform, 4x4s, and Kerlix wrap. This should be changed daily), diabetic teaching and monitoring of unstable blood sugar Reason for occupational therapy: home safety and mobility and therapeutic exercises Overseeing Care: Shayla Augustine Homebound: Leaving the home is medically contraindicated at this time without the asist of a device and/or another person due th the listed conditions above and below. Reason homebound: other (BKA - unable to ambulate ) Homebound supporting statement: Pt with BKA this hospitalization, unable to ambulate. Needs home VNA services. Certification: Based on the above findings, I certify that this patient is confined to the home and needs intermittent prison care, physical therapy and/or speech therapy, or continues to need occupational therapy. The patient is under my care, and I have initiated the establishment of the plan of care. The patient will be followed by a physician who will periodically review the plan of care. Time Spent With Patient Time: Total time managing care of this patient today ____ minutes.
[2024-04-17 11:15] LABS: Glucose, Whole Blood 145 mg/dL (60-115)
--- NOTE | 2024-04-17 13:48 | MHC.SLORD ---
Speech Language Pathology Order Status: Pt d/c planned today, pt on regular diet with mariah, RN consulted, no concerns with PO tolerance. 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
--- NOTE | 2024-04-17 14:05 | MHC.CM.PN ---
Addendum entered by Nette Vickers 04/17/24 15:24: This CM spoke with pts son Nestor to confirm that he is in agreement with discharge plan and that he will be able to transport his dad home today after HD. Original Note: Second IMM given 04/17. Pt is medically cleared for discharge home with [facility], and resumption of outpt HD. Pts son/HCP Nestor will transport him home.
[2024-04-17] MEDS: allopurinoL 100 MG TABLET PO (15:41)
[2024-04-17] MEDS: Furosemide 40 MG TABLET 80 MG PO (15:41)
[2024-04-17] MEDS: Atorvastatin Calcium 40 MG TABLET PO (15:41)
[2024-04-17] MEDS: Aspirin Enteric Coated 81 MG TABLET.DR PO (15:41)
[2024-04-17] MEDS: hydrALAZINE HCl 25 MG TABLET PO (15:52)
--- NOTE | 2024-04-17 17:38 | P.PNNP_ITS ---
Subjective Subjective Date of Service: 04/17/24 Interval history: Events noted. All recent data reviewed; D/W Hospitalist Physical Exam 2 Vital Signs: Vital Signs: Last Vital Signs Temp 98.1 F 04/17/24 11:41 Pulse 68 04/17/24 11:41 Resp 20 04/17/24 11:41 BP 144/72 H 04/17/24 15:52 Pulse Ox 93 04/17/24 14:00 O2 Del Method Room Air 04/17/24 14:00 O2 Flow Rate 2 04/17/24 00:00 Oxygen Flow Rate 2 04/15/24 14:00 BMI result Body Mass Index 28.0 Const: General: comfortable Orientation/consciousness: patient oriented x3 Eyes: EOM: EOMs intact bilaterally Neck: Neck: Yes supple Resp: Auscultation: diminished lung sounds Cardio: Rate: regular rate GI: Palpation (GI): Soft to palpation Neuro: General: patient oriented x3 Objective Data Labs 04/17/24 08:13 04/16/24 07:17 Labs: Laboratory Results - last 24 hr 04/16/24 04/17/24 04/17/24 20:48 07:11 08:13 WBC 17.1 H RBC 3.87 L Hgb 9.6 L Hct 29.5 L MCV 76.2 L MCH 24.8 L MCHC 32.5 RDW 18.4 H Plt Count 400 MPV 10.4 Absolute Nucleated RBC 0.020 H Nucleated RBC % (auto) 0.1 POC Glucose 218 H 80 04/17/24 10:49 WBC RBC Hgb Hct MCV MCH MCHC RDW Plt Count MPV Absolute Nucleated RBC Nucleated RBC % (auto) POC Glucose 145 H Microbiology Microbiology Results: Microbiology 04/09/24 14:48 Foot Right Gram Stain - Final 04/09/24 14:48 Foot Right Routine Culture - Final Methicillin Res Staph Aureus Enterococcus faecalis 04/05/24 12:38 Blood - Venous Blood Culture - Final No growth after 5 days. 04/05/24 12:50 Blood - Venous Blood Culture - Final No growth after 5 days. Procedures Date of Service Date of Service: 04/17/24 Assessment & Plan Assessment and plan (1) ESRD needing dialysis: Status: Acute Plan HD 3x week; Due HD today- K normailized Renal diet; Epogen for Anemia C/W losartan 50 mg bid Concur with rest of medical management Progress Note: Quality Stroke Does the patient have a stroke diagnosis?: No
[2024-04-18] VITALS (8 sets, daily range): BP systolic 128–198; BP diastolic 60–90; PULSE 70–83; RESP 16–18; TEMP 37–37.2; O2SAT 92–96
[2024-04-18 00:18] LABS: Glucose, Whole Blood 145 mg/dL (60-115)
[2024-04-18] MEDS: Docusate Sodium 100 MG CAPSULE PO ×2 (00:36→07:45)
[2024-04-18] MEDS: Doxazosin Mesylate 2 MG TABLET 4 MG PO (00:36)
[2024-04-18] MEDS: Losartan Potassium 50 MG TABLET PO ×2 (00:36→07:44)
[2024-04-18] MEDS: Heparin Sodium,Porcine 5,000 UNIT/ML VIAL 5000 UNIT SUBCUT ×2 (00:37→07:43)
[2024-04-18] MEDS: levETIRAcetam 500 MG TABLET PO ×2 (00:37→07:45)
[2024-04-18] MEDS: carvediloL 6.25 MG TABLET PO ×2 (00:37→07:43)
[2024-04-18] MEDS: 0.9 % Sodium Chloride Flush 3 ML SYRINGE IVFLUSH ×2 (00:38→07:43)
[2024-04-18] MEDS: Piperacillin Sodium/Tazobactam 4.5 GM in 0.9 % Sodium Chloride 100 ML IV ×2 (01:01→07:45)
[2024-04-18] MEDS: Melatonin 3 MG TABLET 6 MG PO (02:01)
[2024-04-18] MEDS: Omeprazole 20 MG CAPSULE.DR PO (06:14)
[2024-04-18] MEDS: Fluticasone/Umeclidinium/Vilanterol 100/62.5/25 BLST.W.DEV 1 PUFF INHALE (07:38)
[2024-04-18] MEDS: Fluticasone Propionate Nasal 16 GM SPRAY 1 SPRAY NOSTRIL-B (07:43)
[2024-04-18] MEDS: Atorvastatin Calcium 40 MG TABLET PO (07:44)
[2024-04-18] MEDS: Acetaminophen 325 MG TABLET 975 MG PO (07:44)
[2024-04-18] MEDS: Furosemide 40 MG TABLET 80 MG PO (07:45)
[2024-04-18] MEDS: hydrALAZINE HCl 25 MG TABLET PO (07:47)
[2024-04-18] MEDS: Aspirin Enteric Coated 81 MG TABLET.DR PO (07:48)
[2024-04-18 08:11] LABS: Glucose, Whole Blood 152 mg/dL (60-115)
[2024-04-18] MEDS: oxyCODONE HCl Immed Release 5 MG TABLET PO (08:50)
--- NOTE | 2024-04-18 09:11 | HO.VASCPN ---
Subjective Subjective Date of Service: 04/18/24 Interval history: Beau is doing well this morning. He continues to endorse pain at the site of the BKA. He is eating and drinking well and BG readings have stabilized. Physical Exam Vital Signs: Vital Signs: Last Vital Signs Temp 98.8 F 04/18/24 07:48 Pulse 72 04/18/24 07:48 Resp 18 04/18/24 07:48 BP 128/60 04/18/24 07:48 Pulse Ox 96 04/18/24 07:48 O2 Del Method Room Air 04/18/24 07:48 O2 Flow Rate 2 04/17/24 00:00 Oxygen Flow Rate 2 04/15/24 14:00 BMI result Body Mass Index 28.0 Const: General: comfortable and no acute distress Orientation/consciousness: patient oriented x3 HEENT: Ears: hearing grossly normal bilaterally Resp: Effort & Inspection: normal respiratory effort and able to speak in complete sentences Auscultation: clear to auscultation bilaterally Cardio: Rate: regular rate Rhythm: regular rhythm Heart sounds: S1 normal heart sound present and S2 normal heart sound present Bruits: no abdominal aortic bruits, no carotid bruits, no femoral bruits and no renal bruits GI: Palpation (GI): No Abdominal aortic bruit present Neuro: General: patient oriented x3 Cranial nerves: Yes CN's II-XII intact bilaterally Extrem: Other: Right BKA site: C/D/I. No bleeding/drainage noted on dressing. Site is healing well. Progress Note: A&P Assessment and plan (1) Hx of right BKA: Status: Acute Assessment and Plan: Beau is s/p right BKA site. It is healing well and the incision site is C/D/I. He is going to be discharged home today with VNA services. I changed the dressing this morning, with xeroform, 4x4, and Kerlix wrap. I discussed with his son and him the importance of keeping the area clean, dry, and covered. We will have him follow up with us outpatient. If there are any questions or concerns, please do not hesitate to reach out to us. Time Spent With Patient Time: Total time managing care of this patient today ____ minutes. Procedures Date of Service Date of Service: 04/18/24 Quality Stroke Does the patient have a stroke diagnosis?: No VTE Prior VTE?: No VTE Risk Level:: Medical - moderate - high VTE Device Contraindication: Treatment Not Indicated VTE Drug Contraindication: N/A - Med Ordered
--- NOTE | 2024-04-18 09:35 | MHC.CM.PN ---
Per RN, Patient has dc'd to home. CM will fax dc summary and face to face to [facility].
--- NOTE | 2024-04-18 09:51 | MHC.CM.PN ---
DC summary and face to face have been faxed to [facility] @ [phone].
== END 2024-04-18 09:21 | disposition home health service (06) | DRG 474 ==
LOC: HO.ED 13:21 → HO.EDOVER 14:23 → HO.IMC 16:37
PROVIDERS: Internal Medicine; Physician Assistant; Physician Assistant Medical; Physician Assistant Surgical; Surgery Vascular Surgery; Admitting Provider Internal Medicine; Emergency Provider Emergency Medicine; PCP Nurse Practitioner; Visit Provider Family Medicine
PROC: 0QBN0ZZ Excision of Right Metatarsal, Open Approach (ICD-10-PCS; principal; 2024-04-09 13:50)
PROC: 0Y6H0Z2 Detachment at Right Lower Leg, Mid, Open Approach (ICD-10-PCS; CPT 27880; principal; 2024-04-11 13:30)
DX: T87.43 Infection of amputation stump, right lower extremity (principal); G92.8 Other toxic encephalopathy; N18.6 End stage renal disease; J69.0 Pneumonitis due to inhalation of food and vomit; I13.2 Hypertensive heart and chronic kidney disease with heart failure and with stage 5 chronic kidney disease, or end stage renal disease; I50.22 Chronic systolic (congestive) heart failure; E11.52 Type 2 diabetes mellitus with diabetic peripheral angiopathy with gangrene; D62 Acute posthemorrhagic anemia; L03.115 Cellulitis of right lower limb; E11.22 Type 2 diabetes mellitus with diabetic chronic kidney disease; D63.1 Anemia in chronic kidney disease; E78.5 Hyperlipidemia, unspecified; Z99.2 Dependence on renal dialysis; M10.9 Gout, unspecified; K21.9 Gastro-esophageal reflux disease without esophagitis; T87.81 Dehiscence of amputation stump; G89.18 Other acute postprocedural pain; E11.65 Type 2 diabetes mellitus with hyperglycemia; Y83.5 Amputation of limb(s) as the cause of abnormal reaction of the patient, or of later complication, without mention of misadventure at the time of the procedure; E11.649 Type 2 diabetes mellitus with hypoglycemia without coma; E87.5 Hyperkalemia; R56.9 Unspecified convulsions; I16.0 Hypertensive urgency; E11.42 Type 2 diabetes mellitus with diabetic polyneuropathy; G47.33 Obstructive sleep apnea (adult) (pediatric); Z87.891 Personal history of nicotine dependence; Z91.119 Patient's noncompliance with dietary regimen due to unspecified reason; Z99.81 Dependence on supplemental oxygen; Z79.4 Long term (current) use of insulin; Z79.82 Long term (current) use of aspirin; Z79.899 Other long term (current) drug therapy
CPT/HCPCS: 36415; 70450; 71045; 73630; 80048; 80051; 80076; 80202; 82565; 82803; 82947; 83036; 83605; 83735; 85025; 85027; 85610; 85652; 86140; 86850; 86900; 86901; 86923; 87040; 87070; 87077; 87186; 87205; 88307; 88311; 90999; 92610; 94664; 95816; 97110; 97162; 97167; 99212; 99285; J1100; J1171; J1644; J2003; J2270; J2371; J2543; J2704; J2795; J3010; J3370; P9016; Q5106

== ENCOUNTER → 2024-04-05 10:45 | Outpatient (BNV) | payer MEDICARE, MEDICAID, SELFPAY | PROVIDERS: PCP Nurse Practitioner; Visit Provider Radiology Diagnostic Radiology | DX: T87.89 Other complications of amputation stump (principal); Z89.431 Acquired absence of right foot | CPT/HCPCS: 73630 ==

== ENCOUNTER 2024-04-05 14:22 | Outpatient (BNV) | payer MEDICARE, MEDICAID, SELFPAY | END 2024-04-16 11:30 | PROVIDERS: Admitting Provider Internal Medicine; Emergency Provider Emergency Medicine; PCP Nurse Practitioner; Visit Provider Radiology Diagnostic Radiology | DX: I51.7 Cardiomegaly (principal); R91.8 Other nonspecific abnormal finding of lung field | CPT/HCPCS: 71045 ==

== ENCOUNTER 2024-04-05 14:22 | Outpatient (BNV) | payer MEDICARE, MEDICAID, SELFPAY | END 2024-04-10 13:06 | PROVIDERS: Admitting Provider Internal Medicine; Emergency Provider Emergency Medicine; PCP Nurse Practitioner; Visit Provider Radiology Diagnostic Radiology | DX: R90.82 White matter disease, unspecified (principal); R93.0 Abnormal findings on diagnostic imaging of skull and head, not elsewhere classified; H74.8X2 Other specified disorders of left middle ear and mastoid | CPT/HCPCS: 70450 ==

== ENCOUNTER 2024-04-05 14:22 | Outpatient (BNV) | payer MEDICARE, MEDICAID, SELFPAY | END 2024-04-15 09:25 | PROVIDERS: Admitting Provider Internal Medicine; Emergency Provider Emergency Medicine; PCP Nurse Practitioner; Visit Provider Radiology Diagnostic Radiology | DX: H74.8X2 Other specified disorders of left middle ear and mastoid (principal); R93.0 Abnormal findings on diagnostic imaging of skull and head, not elsewhere classified | CPT/HCPCS: 70450 ==

== ENCOUNTER → 2024-04-05 14:22 | Outpatient (BNV) | payer MEDICARE, MEDICAID, SELFPAY | PROVIDERS: Admitting Provider Internal Medicine; Emergency Provider Emergency Medicine; PCP Nurse Practitioner; Visit Provider Psychiatry & Neurology Neurology | DX: G93.81 Temporal sclerosis (principal); R53.1 Weakness | CPT/HCPCS: 99222 ==

== ENCOUNTER → 2024-04-05 14:22 | Outpatient (BNV) | payer MEDICARE, MEDICAID, SELFPAY | PROVIDERS: Admitting Provider Internal Medicine; Emergency Provider Emergency Medicine; PCP Nurse Practitioner; Visit Provider Internal Medicine Hypertension Specialist | DX: N18.6 End stage renal disease (principal); Z99.2 Dependence on renal dialysis | CPT/HCPCS: 90935; 99232; 99499 ==

== ENCOUNTER → 2024-04-05 14:22 | Outpatient (BNV) | payer MEDICARE, MEDICAID, SELFPAY | PROVIDERS: Admitting Provider Internal Medicine; Emergency Provider Emergency Medicine; PCP Nurse Practitioner; Visit Provider Internal Medicine | DX: L03.115 Cellulitis of right lower limb (principal); N18.6 End stage renal disease; Z99.2 Dependence on renal dialysis; E11.9 Type 2 diabetes mellitus without complications | CPT/HCPCS: 99223; 99233 ==

== ENCOUNTER 2024-04-30 14:15 | Outpatient (AMB) | payer MEDICARE, MEDICAID, SELFPAY ==
--- NOTE | 2024-04-30 14:26 | MHC.OFFVIS ---
Intake Visit Reasons: 2 week follow up R BKA/staple removal Intake Note: 2 week follow up Right BKA 04/11/24, Pt is home w/ VNA services, d/c last , VNA comes daily but does dressing changes twice since home. Pt does have some other concerns, has some bruising over body and his great toe on left foot. Pt states his blood sugar is not doing well since discharge. Also, pt states his Right middle finger has wound on the tip w/ bruising. Hospitalist Nocturnist Physician Required: No Accompanied by: Family/Other Allergies Iodinated Contrast Media [Contrast Dye] Allergy (Severe, Verified 04/30/24 14:33) Facial Swelling HPI HPI 2 week follow up R BKA/staple removal: Details: Beau is presenting today with his brother and 1 of his sons for a 2 week follow up status post right BKA, that was performed on 04/11/2024. He has been home for approximately 12 days now. They state that he is getting VNA services almost every day. He is getting the bandage changed every couple of days. He continues with dialysis on Monday, Wednesdays, and Fridays. His brother states that there sister has been cooking 3 meals a day for him and he has not been having any take out food. They do endorse that his blood sugars have continued to arrange on the higher side, with the lowest number around 185. He has been ranging in the 200-300 range myrtle. They also have concerns because he is getting some black spots on his left great toe on either side of the toenail, starting approximately 1 week ago. Also, the last couple of days, he started with a purplish discoloration all over his back in splotches as well as on his left lateral knee. It is not itchy nor painful. There has been no new changes to a laundry detergent and there are no spots noted anywhere else, on the chest or other leg. The patient also states that on his right middle finger he has pain and discoloration; the brother states that they continually pricked his finger in the hospital for blood sugars. The patient states he has been having increased tiredness but has been having difficulty sleeping due to itching in the area of the BKA site. [facility] Medical History Right sided weakness ESRD needing dialysis Dehiscence of wound Peripheral arterial disease Cellulitis of right foot Hypertension Dry gangrene HFrEF (heart failure with reduced ejection fraction) ESRD (end stage renal disease) Chronic combined systolic and diastolic CHF (congestive heart failure) Chronic pericardial effusion Arthritis Asthma Restless leg syndrome Acute on chronic systolic and diastolic heart failure, NYHA class 3 Anemia ESRD (end stage renal disease) Occlusive thrombus Pulmonary edema ROBERT (obstructive sleep apnea) Type 2 diabetes mellitus Hyperlipidemia Hypertension A-V fistula ESRD on dialysis Falling Surgical History (Updated 04/30/24 @ 15:34 by Amarilis Mcdaniels PA-C) Hx of right BKA Status post transmetatarsal amputation of right foot History of transmetatarsal amputation of foot History of surgery H/O colonoscopy Recurrent pleural effusion Pleural effusion on right (07/13/23) Family History Father No problems noted. Mother No problems noted. Social History Household Members: Children Household Members Other:: son Housing: Apartment Are you a primary patient care representative to a significant other at home: No Do you presently have visiting nurse or other home services: No Alcohol intake: never Comment: counts correct Patient Tobacco Use Status: Former Tobacco user Tobacco use type: Cigarette Second Hand Smoke Exposure: No Advance Directives Date on File: 04/13/23 service: No Review of Systems Const Reports as per HPI and Denies weakness ENT Reports Normal hearing present and Denies dizziness Card Reports as per HPI, Denies chest pain, Denies chest pain at rest, Denies chest pain with activity, Denies dyspnea and Denies dyspnea on exertion Resp Reports as per HPI, Denies cough, Denies dyspnea and Denies dyspnea on exertion GI Reports as per HPI, Denies abdominal pain, Denies nausea and Denies vomiting Musc Denies numbness Skin/Breast Reports as per HPI, Denies erythema and Denies wounds Neuro Reports Normal hearing present, Denies dizziness, Denies numbness, Denies Sensory deficit (Neuro) and Denies weakness Psych Reports no additional complaints Endo Reports no additional complaints Physical Exam Const General: healthy appearing and no acute distress Orientation/consciousness: patient oriented x3 HEENT Head: Yes normal to inspection Ears: hearing grossly normal bilaterally Mouth: Normal oral and palatal mucosa present Resp Effort & Inspection: normal respiratory effort and able to speak in complete sentences Auscultation: clear to auscultation bilaterally Cardio Jugular venous distension: no JVD Rate: regular rate Rhythm: regular rhythm Heart sounds: S1 normal heart sound present and S2 normal heart sound present Bruits: no abdominal aortic bruits, no carotid bruits, no femoral bruits and no renal bruits Peripheral pulses: Peripheral pulses 2+ throughout GI Inspection: Yes normal to inspection Palpation (GI): No Abdominal aortic bruit present Skin General skin exam: no rashes or lesions noted Wounds: no wounds Hair: normal Neuro General: patient oriented x3 Cranial nerves: Yes Normal hearing present Cognition (Neuro): normal cognition Gait exam (Neuro): Normal gait present Motor exam (neuro): 5/5 motor strength present throughout Sensory Exam: No Sensory deficit (Neuro) Extrem Other: Right BKA site: [place] and sutures in place. Violaceous discoloration noted on the lateral aspect of the flap to about mid incision site. Multiple areas of bruising noted above the incision site. Some areas on the flap feel boggy to the touch. There is a small ulceration noted on the left medial aspect, just below the knee, with minimal bleeding noted. The francisco were removed and there was some serosanguineous discharge in several areas, increased in the areas where the bogginess is felt. Right third finger: violaceous coloring with scabbed over prick sites noted to the left of the nail bed. Painful to palpation. Left lateral knee: deep purple/red papular rash noted Back: deep purple/red papular rash noted General: Yes normal to inspection, Yes full ROM, Yes capillary refill normal and Yes normal gait Assessment & Plan Assessment & Plan (1) Hx of right BKA: Code(s): Z89.511 - Acquired absence of right leg below knee Category: Surgical Plan: Beau is presenting today with his brother and one of his sons for a 2w follow up s/p right BKA, on 04/11/24. He was discharged home on 04/18. He has VNA services daily. He has been going to dialysis on //. His family has been cooking him 3 meals a day, with no takeout. His BG readings have been higher, in the 200-300 range, the lowest number being 185. The patient continues to endorse that he is extremely tired. They deny any fevers, chills, but is having intermittent body aches. We remove the francisco today but kept the sutures in. There was a minimal to moderate amount of serosanguinous drainage from multiple areas of the incision site. We dressed the site with foam pads, Kerlix, and an Javy bandage. We sent the patient home with some ABD pads for extra supplies for drainage. I wrote a note to VNA to obtain these supplies into try to change the dressing daily, or at least 3 times a week. I discussed with the family that the dressings would likely need to be changed daily, due to the drainage. I discussed with him that if the site looks worse or he has any fever, chills, difficulty breathing, or any other concerning signs, to go to the ER. I discussed that they can call our office if they have any concerns about the BKA site. They do have an appointment on with his PCP due to the rash/discoloration that is suddenly popped up. They do state that he gets regular lab work prior to dialysis treatments, the patient states that they have not noted any discrepancies or they have not told him. I told him to discuss with the PCP office for about obtaining lab work, discussing about the finger, as well as the rash/discoloration. We will have the the patient follow up with us in 1 week. If there are any questions or concerns, please do not hesitate to reach out to us. Coding Level of Care Code Global (33748) Diagnoses Hx of right BKA Z89.511
--- OUTSIDE RECORDS SUMMARY | 2024-04-30 17:52 | XMS_ITS | Encounter Summary ---
Author Organization [facility] Address [address] [place] [address] Encounter Details Date Type Department Care Team Description 2024-04-24 Telephone [facility] [address] [place] [address] Karmen Carroll The [facility] care team was unable to complete a Medication Reconciliation with the patient following discharge. ASSESSMENT No Information TREATMENT PLAN No Information
--- OUTSIDE RECORDS SUMMARY | 2024-04-30 17:52 | XMS_ITS | Encounter Summary ---
Author Organization [facility], Address [address] [place] [address] Phone Care Team Providers Care Mill Machinist Name Role Phone Jade Lewis MD Primary Care Provider + [phone] Reason for Visit * Reason Comments Med Refill Encounter Details Date Type Department Care Team ([facility] st Contact Info) Description 10/18/2023 Refill [facility] [address] [place] [phone] Malcolm Taylor MD [address] [place] [address] [place] [phone] Social History Tobacco Use Types Packs/Day Years [...] 10/19/2023 Unless otherwise specified, test(s) performed at: [facility], [address] [place] [address] PUBLIC HEALTH INFORMATICIAN: Homero Garcia M.D. For any questions, please call customer service at FREQUENCY:OTHER Resulting Agency Comment Specimen source: Blood us Car Mcdonald MD LAB BLOOD ORDERABLES Final Re sult [facility] See order comments or contact performing lab Unknown, [place] documented in this encounter Visit Diagnoses Not on filedocumented in this encounter Care Teams Mill Machinist Relationship Specialty Start Date End Date Jade Lewis MD [address] [place] [id number] PCP - General Internal Medicine 04/25/22 documented as of this encounter
--- OUTSIDE RECORDS SUMMARY | 2024-04-30 17:52 | XMS_ITS | Encounter Summary ---
Author Organization [facility], Address [address] [place] [address] Phone Care Team Providers Care Mattress Stuffer Name Role Phone Jade Lewis MD Primary Care Provider + [phone] Reason for Visit * Reason Comments Med Refill Encounter Details Date Type Department Care Team (Late st Contact Info) Description 04/27/2019 Refill [facility] [address] [place] [phone] Mercedes Law MD Social History [...] on filedocumented in this encounter Care Teams Mattress Stuffer Relationship Specialty Start Date End Date Jade Lewis MD [address] [place], [place] [id number] PCP - General Internal Medicine 04/25/22 documented as of this encounter
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
--- OUTSIDE RECORDS SUMMARY | 2024-04-30 17:52 | XMS_ITS | Encounter Summary ---
Author Organization [facility], Address [address] [place] [address] Phone Care Team Providers Care Shipping Lead Person Name Role Phone Jade Lewis MD Primary Care Provider + [phone] Encounter Details Date Type Department Care Team (Late st Contact Info) Description 03/15/2024 Treatment [facility], [address] [place] [address] Dylan Grace MD [address] [place] [address] [place] [address] Social History Tobacco Use Types Packs/Day Years [...] Dialysis Note - Dylan Grace MD - 03/15/2024 12:00 AM EST Patient: Beau Marie : 1955 Note Type: Dialysis Rounds-Comp Service Date: 03/15/2024 This patient was personally seen for a complete visit as part of routine monthly dialysis care for end stage renal disease. Attending Motion Picture Actor: DYLAN GRACE Dialysis Location: [facility] Schedule: Shift: HOME MEDICATIONS [facility] Outpatient Medications allopurinol 100 mg tablet [Take [...] Inhub 100-50 mcg/dose blister with device Current grabHalo Allergies Allergen: No Known Allergies Allergen: No Known Drug Allergies Allergen: No Known Food Allergies DIALYSIS PRESCRIPTION Treatment Data Treatment Date: 04/05/2024 started at: 6:03 AM Dialysate / Machine Temp (prescribed): 36.0*C Dialysate / Machine Temp (actual): 36.0*C BFR (prescribed): 450 BFR (average delivered): 460 DFR (prescribed): Manual 800 DFR (average delivered): 800 Prescribed Time: 03:30 Actual Time: 03:32 EDW (kg): 72.5 Dialyzer: 180NRe Optiflux Dialysate: 2.0 K, 2.50 Ca, 1.0 Mg, 100 Dextrose ([id number]) Sodium: 138 Bicarb: 38 Pre Dialysis Vitals Pre BP Sit: 154/89 Pre Wt (kg): 72.5 EDW Deviation (kg): 0.0 Temp: 98.2*F Post Dialysis Vitals Post BP Sit: Post Wt (kg): 69.9 TREATMENT MEDICATIONS ORDERS Cinacalcet (Sensipar) 60 mg ORAL 3X Week 01/19/2024 - 01/17/2025 Heparin Sodium (Porcine) 1,000 Units/mL Catheter Lock Arterial 1900 units Arterial Red Port Every Treatment 08/09/2023 - 08/07/2024 Heparin Sodium (Porcine) 1,000 Units/mL Catheter Lock Venous 1900 units Venous Blue Port Every Treatment 08/09/2023 - 08/07/2024 Vitamin D (Calcitriol) Oral 1.50 mcg ORAL Every Treatment 05/15/2023 - 05/13/2024 BP AND FLUID ASSESSMENT Post BP Sit 183/99 - 04/05/2024 184/100 - 04/03/2024 169/85 - 04/01/2024 Post Wt (kg) 69.9 - 04/05/2024 71.6 - 04/03/2024 71.4 - 04/01/2024 EDW (kg) 72.5 - 04/05/2024 72.5 - 04/03/2024 72.5 - 04/01/2024 Deviation (kg) -2.6 - 04/05/2024 -0.9 - 04/03/2024 -1.1 - 04/01/2024 ADEQUACY ASSESSMENT Missed Treatments 5 - Last 30 days 9 - Last 60 days Most recently missed on 04/08/2024 spKt/V (Daugirdas II) 0.96 (03/08/24) 1.32 (02/12/24) 1.22 (01/15/24) eKdrt/V 1.02 (01/15/24) 1.00 (01/10/24) 1.16 (01/01/24) % Urea Reduction 65 (03/13/24) 57 (03/08/24) 67 (02/12/24) BUN 79 (03/13/24) 49 (03/08/24) 67 (02/12/24) BUN Post Dialysis 28 (03/13/24) 21 (03/08/24) 22 (02/12/24) Creatinine 7.44 (03/08/24) 10.81 (02/12/24) 10.16 (01/10/24) Bicarbonate (CO2) 25 (03/08/24) 21 (02/12/24) 23 (01/10/24) Sodium 137 (03/08/24) 143 (02/12/24) 145 (01/10/24) ACCESS ASSESSMENT CVCatheter Tunneled Neck Active (In Use) - 08/09/2023 Placed - 08/08/2023 ANEMIA ASSESSMENT Hemoglobin 9.5 (04/03/24) 10.4 (03/29/24) 10.7 (03/13/24) Iron Saturation (TSat) 29 (03/08/24) 30 (02/21/24) 28 (02/12/24) Ferritin 1,289 (03/08/24) 800 (02/21/24) 907 (02/12/24) Iron 38 (03/08/24) 44 (02/21/24) 49 (02/12/24) TIBC 132 (03/08/24) 149 (02/21/24) 174 (02/12/24) Reticulocyte Hemoglobin 25.6 (03/08/24) 26.2 (12/08/23) 25.9 (09/06/23) MCV 80 (03/08/24) 82 (12/08/23) 85 (09/06/23) BMM ASSESSMENT Calcium 9.0 03/08/24 8.1 02/12/24 8.5 01/10/24 Corrected Calcium 9.2 03/08/24 8.3 02/12/24 8.6 01/10/24 Phosphorus 5.9 03/08/24 8.4 02/12/24 8.5 01/10/24 Calcium Phosphorus Product 53 03/08/24 68 02/12/24 72 01/10/24 PTH 826 03/08/24 705 02/12/24 906 01/10/24 Vitamin D, 25-OH, Total 22.2 12/08/23 Magnesium 1.8 03/08/24 1.9 02/12/24 1.7 01/10/24 Alkaline Phosphatase 142 03/08/24 97 02/12/24 127 01/10/24 Aluminum <5 12/08/23 NUTRITION ASSESSMENT Albumin 3.7 03/08/24 3.8 02/12/24 3.9 01/10/24 Potassium 5.1 03/08/24 5.5 02/12/24 4.1 01/10/24 eNPCR 0.86 01/15/24 0.84 01/10/24 0.94 01/01/24 Hemoglobin A1C 7.9 03/08/24 7.6 12/08/23 8.4 09/06/23 ADDITIONAL LABS WBC 10.55 (03/08/24) 8.53 (12/08/23) 9.07 (09/06/23) Cholesterol 103 (12/08/23) 91 (06/07/23) Triglycerides 72 [...] reviewed. Dietary adjustments made in conjunction with bus mechanic. 7.Transplant: The patient is being evaluated for a kidney transplant. Signed by: DYLAN GRACE MD on 04/08/2024 at 08:01:34 AM Transcribed by: DYLAN GRACE MD on 04/08/2024 at 08:01:34 AM documented in this encounter Plan of Treatment Not on file documented as of this encounter Visit Diagnoses Not on filedocumented in this encounter Care Teams Shipping Lead Person Relationship Specialty Start Date End Date Jade Lewis MD [address] [place], [place] [id number] PCP - General Internal Medicine 04/25/22 documented as of this encounter
--- OUTSIDE RECORDS SUMMARY | 2024-04-30 17:52 | XMS_ITS | Clinical Summary ---
Author Organization [employer] Address [address] [place] [address] [address] [place] [address] Care Team Providers Care Export Clerk Name Role Phone Unavailable Primary Care Provider Unavailabl e Social History Tobacco Use Types Packs/Day Years [...] on patient's age to complete this topic Insurance STANDARD
--- OUTSIDE RECORDS SUMMARY | 2024-04-30 17:52 | XMS_ITS | Encounter Summary ---
Author Organization [facility], Address [address] [place] [address] Phone Care Team Providers Care Personal Health Coach Name Role Phone Jade Lewis MD Primary Care Provider + [phone] Encounter Details Date Type Department Care Team (Late st Contact Info) Description 04/01/2024 Treatment [facility], [address] [place] [address] Dylan Grace MD [address] [place] [address] [place] [address] Social History Tobacco Use Types Packs/Day Years [...] Dialysis Note - Dylan Grace MD - 04/01/2024 12:00 AM EST Patient: Beau Marie : 1955 Note Type: Dialysis Rounds-Basic Service Date: 04/01/2024 This patient was personally seen for a basic visit as part of routine monthly dialysis care for end stage renal disease. Attending Cash Management Specialist: DYLAN GRACE Dialysis Location: [facility] Schedule: Shift: HOME MEDICATIONS [facility] Outpatient Medications allopurinol 100 mg tablet [...] Inhub 100-50 mcg/dose blister with device Current [place] Allergies Allergen: No Known Allergies Allergen: No [...] K, 2.50 Ca, 1.0 Mg, 100 Dextrose ([id number]) Sodium: 138 Bicarb: 38 Pre Dialysis Vitals [...] reviewed. Dietary adjustments made in conjunction with public speaker. 7.Transplant: The patient is being evaluated for a kidney transplant. Signed by: DYLAN GRACE MD on 04/08/2024 at 08:01:48 AM Transcribed by: DYLAN GRACE MD on 04/08/2024 at 08:01:48 AM documented in this encounter Plan of Treatment Not on file documented as of this encounter Visit Diagnoses Not on filedocumented in this encounter Care Teams Personal Health Coach Relationship Specialty Start Date End Date Jade Lewis MD [address] [place], [place] [phone] PCP - General Internal Medicine 04/25/22 documented as of this encounter
--- OUTSIDE RECORDS SUMMARY | 2024-04-30 17:52 | XMS_ITS | Encounter Summary ---
Author Organization [facility], Address [address] [place] [address] Phone Care Team Providers Care Water Filterer Name Role Phone Jade Lewis MD Primary Care Provider + [phone] Reason for Visit * Reason Comments Med Refill Encounter Details Date Type Department Care Team ([facility] st Contact Info) Description 06/25/2019 Refill [facility] [address] [place] [address] Mercedes Law MD Social History [...] on filedocumented in this encounter Care Teams Water Filterer Relationship Specialty Start Date End Date Jade Lewis MD [address] [place], [place] [id number] PCP - General Internal Medicine 04/25/22 documented as of this encounter
--- OUTSIDE RECORDS SUMMARY | 2024-04-30 17:52 | XMS_ITS | Clinical Summary ---
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 Active allopurinoL (ZYLOPRIM) 100 mg tablet Take 1 tablet (100 mg total) by mouth 3 (three) times a week. After dialysis 03/08/19 25 Active Marion Low Dose Aspirin 81 mg EC tablet Take 1 tablet (81 mg total) by mouth daily. 10/23/19 21 Active atorvastatin (LIPITOR) 40 mg tablet Take 1 tablet (40 mg total) by mouth daily. 10/23/19 21 Active doxazosin (CARDURA) 4 mg tablet Take 1 tablet (4 mg total) by mouth at bedtime. at bedtime 03/22/19 25 Active Trelegy Ellipta 200-62.5-25 mcg inhaler Inhale 1 puff (200 mcg total) by mouth 1 (one) time each day. Active furosemide (LASIX) 80 mg tablet Take 1 tablet (80 mg total) by mouth 1 (one) time each day. 02/24/20 24 Active hydrALAZINE (APRESOLINE) 25 mg tablet Take 1 tablet (25 mg total) by mouth 3 (three) times a day. 01/01/20 24 Active Lantus Solostar U-100 Insulin 100 unit/mL (3 mL) injection pen Inject 22 Units under the skin at bedtime. 03/04/20 24 Active insulin lispro 100 unit/mL injection Inject 2 Units under the skin 3 (three) times a day before meals. 2-10 units subcutaneously three times daily 08/29/19 24 Active ipratropium-al buteroL (DUONEB) 0.5-2.5 mg/3 mL nebulizer solution Take 3 mL by nebulization 4 (four) times a day if needed for wheezing or shortness of breath. 01/29/20 24 Active losartan (COZAAR) 25 mg tablet Take 1 tablet (25 mg total) by mouth 1 (one) time each day. Active omeprazole (PriLOSEC) [address] capsule Take 1 capsule (20 mg total) by mouth 1 (one) time each day before breakfast. 03/08/19 Active pregabalin (LYRICA) 75 mg capsule Take 1 capsule (75 mg total) by mouth 1 (one) time each day. Max Daily Amount: 75 mg 02/24/20 Active Stimulant Laxative Plus 8.6-50 mg per tablet Take 1 tablet by mouth 1 (one) time each day if needed for constipation. 02/21/20 24 Active acetaminophen (TYLENOL) 500 mg tablet Take 2 tablets (1,000 mg total) by mouth every 6 (six) hours if needed for mild pain for up to 10 days. 30 tablet 03/27/19 25 025 cefpodoxime (VANTIN) 200 mg tablet Take 1 tablet (200 mg total) by mouth 1 (one) time each day for 10 days. 10 each 03/27/19 25 025 predniSONE (DELTASONE) 10 mg tablet Take 2 tablets (20 mg total) by mouth 1 (one) time each day for 5 days, THEN 1 tablet (10 mg total) 1 (one) time each day for 5 days. 15 each 03/27/19 25 025 lidocaine 4 % patch Apply 1 patch topically 1 (one) time each day. 30 each 03/27/19 25 025 Active Problems Problem Noted Date Diagnosed Date Uremia 03/25/2024 Encounters Date Type Department Care Team Description 04/02/2024 Lab Requisition [facility] - Main Lab [address] [facility] [place] [address] Cass Turcios MD End stage renal disease ([facility]) 03/25/2024 7:29 AM EST - 03/27/2024 6:55 PM EST Hospital Encounter [facility] Intermediate Care Unit [address] [place] [id number] Noman Conteh MD Bukalo, Nermina, MD Japaridze, Anna, MD Acute kidney injury superimposed on chronic kidney disease ([facility]) (Primary Dx); Hyperkalemia; Urinary tract infection without hematuria, site unspecified Discharge Disposition: Halfway Facility 03/25/2024 Lab Requisition [facility] - Main Lab [address] [place] [address] Cass Turcios MD Anemia, unspecified; Chronic diastolic (congestive) heart failure ([facility]); Other pericardial effusion (noninflammatory); End stage renal disease ([facility]) from Last 3 Months Surgical History Surgery Date Site/Laterality Comments TOE AMPUTATION IR DIALYSIS CATH INSERT VASCULAR ACCESS Medical History Medical History Date Comments ESRD (end stage renal disease) on dialysis ([facility]) MWF Hypertension Hyperlipidemia Gouty arthritis Diabetes mellitus ([facility]) GERD (gastroesophageal reflux disease) COPD (chronic obstructive pulmonary disease) ([facility]) Social History Tobacco Use Types Packs/Day [...] care for your loved ones. For example, childcare provider or elderly care for an older adult? [...] Recorded Sex Assigned at Not on file Legal Sex Male 4:56 AM EST Gender Identity Not on file Sexual Orientation Not on file Obstetrics History Last Filed [...] 12/17/2021, 08/20/2021, 01/08/2021, Additional history exists Diabetes: Blood Sugar Control Test (HGBA1C) 03/25/2024 Social Influencers of Health Screening 03/25/2025 03/25/2024 Falls Risk Assessment 03/27/2025 03/27/2024 Hypertension/CHF/CAD Annual BMP Blood Test 04/02/2025 04/02/2024, 03/27/2024, 03/26/2024, Additional history exists Cholesterol Screening (Lipid Panel) 05/29/2026 05/29/2021 DTaP,Tdap,and Td Vaccines (6 - Td or Tdap) 08/02/2033 08/03/2023, 01/02/2023, 09/21/2020, Additional history exists Zoster Vaccines Completed 01/07/2020, 07/27/2017 Hepatitis C Screening Completed 05/17/2021 Hepatitis B Vaccines Completed 01/07/2022, 11/10/2021, 10/06/2021, Additional history exists Pneumococcal Vaccine: 50+ Years Completed 09/14/2023, 01/15/2021, 11/13/2020, Additional history [...] patient's age to complete this topic Meningococcal B Vacine Aged Out No lo nger eligible based on patient's age to complete [...] is included. WBC 26.2(H) 4.8 - 10.8 K/[facility] LAB HEMETOLOGY METHOD 04/02/2024 9:47 AM EST [facility] RBC 4.10(L) 4.50 - 5.50 M/mcL LAB HEMETOLOGY METHOD 04/02/2024 9:47 AM [facility] Hemoglobin 9.4(L) 13.5 - 17.5 g/dL LAB HEMETOLOGY METHOD 04/02/2024 9:47 AM [facility] Hematocrit 31.2(L) 42.0 - 54.0 % LAB HEMETOLOGY METHOD 04/02/2024 9:47 AM [facility] MCV 76.1(L) 79.0 - 98.0 FL LAB HEMETOLOGY METHOD 04/02/2024 9:47 AM [facility] MCH 22.9(L) 27.0 - 32.0 pcg LAB HEMETOLOGY METHOD 04/02/2024 9:47 AM [facility] MCHC 30.1(L) 32.0 - 37.0 g/dL LAB HEMETOLOGY METHOD 04/02/2024 9:47 AM [facility] RDW 17.1(H) 11.0 - 15.0 % LAB HEMETOLOGY METHOD 04/02/2024 9:47 AM [facility] Platelets 349 130 - 400 K/mcL LAB HEMETOLOGY METHOD 04/02/2024 9:47 AM [facility] MPV 11.4(H) 7.0 - 11.0 FL LAB HEMETOLOGY METHOD 04/02/2024 9:47 AM [facility] NRBC 0.0 <1.0 % LAB HEMETOLOGY METHOD 04/02/2024 9:47 AM [facility] NRBC Absolute 0.00 <0.10 K/mcL LAB HEMETOLOGY METHOD 04/02/2024 9:47 AM [facility] Blood Venous blood specimen / Unknown Venipuncture / Unknown 04/02/2024 5:24 AM EST 04/02/2024 8:48 AM EST us Cass Turcios MD LAB BLOOD ORDERABLES Final Resul t [facility] [address] [place] [address], [place] [phone] * (ABNORMAL) Basic metabolic panel (04/02/2024 5:24 AM EST) Only the most recent of5 resultswithin the time period is included. Sodium 135 133 - 145 mmol/L LAB CHEMISTRY METHOD 04/02/2024 10:35 AM [facility] Potassium 5.6(H) 3.5 - 5.5 mmol/L LAB CHEMISTRY METHOD 04/02/2024 10:35 AM [facility] Chloride 95(L) 96 - 110 mmol/L LAB CHEMISTRY METHOD 04/02/2024 10:35 AM [facility] CO2 32 21 - 32 mmol/L LAB CHEMISTRY METHOD 04/02/2024 10:35 AM [facility] Anion Gap 8 3 - 11 LAB CHEMISTRY METHOD 04/02/2024 10:35 AM [facility] Glucose 32(LL) 70 - 100 mg/dL LAB CHEMISTRY METHOD 04/02/2024 10:35 AM [facility] BUN 50(H) 5 - 25 mg/dL LAB CHEMISTRY METHOD 04/02/2024 10:35 AM [facility] Creatinine 7.72(H) 0.70 - 1.30 mg/dL LAB CHEMISTRY METHOD 04/02/2024 10:35 AM [facility] eGFR 7(L) >=60 mL/min/1. 73m2 LAB CHEMISTRY METHOD 04/02/2024 10:35 AM [facility] Comment:Calculation based on the??Chronic Kidney Disease Epidemiology Collaboration (CKD-EPI) equation refit??without adjustment for race. BUN/Creatinine Ratio 6.5 LAB CHEMISTRY METHOD 04/02/2024 10:35 AM EST [facility] Calcium 8.3(L) 8.5 - 10.5 mg/dL LAB CHEMISTRY METHOD 04/02/2024 10:35 AM EST [facility] Blood Venous blood specimen / Unknown Venipuncture / Unknown 04/02/2024 5:24 AM EST 04/02/2024 8:48 AM EST Cass Turcios MD LAB BLOOD ORDERABLES Final Resul t Performing Organization Address City/[facility]/ZIP Co de Phone Number [facility] [address] [place] [address], [place] [phone] * (ABNORMAL) POCT Glucose, blood (03/27/2024 4:55 PM EST) Only the most recent of10 resultswithin the time period is included. Glucose POCT 276(H) 70 - 100 mg/dL 03/27/2024 4:56 PM EST [facility] Blood Capillary blood specimen / Unknown 03/27/2024 4:55 PM EST 03/27/2024 4:57 PM EST Marion Hernandez MD LAB POINT OF CARE TE ST DOCKED DEVICE UNSOLICITED RESULTS Final Result Performing Organization Address City/[facility]/ZIP Co de Phone Number [facility] [address] [place] [address], [place] [phone] * (ABNORMAL) CBC auto differential (03/27/2024 7:35 AM EST) Only the most recent of2 resultswithin the time period is included. WBC 6.4 4.8 - 10.8 K/[facility] LAB HEMETOLOGY METHOD 03/27/2024 9:44 AM EST [facility] RBC 4.20(L) 4.50 - 5.50 M/[facility] LAB HEMETOLOGY METHOD 03/27/2024 9:44 AM [facility] Hemoglobin 9.7(L) 13.5 - 17.5 g/dL LAB HEMETOLOGY METHOD 03/27/2024 9:44 AM [facility] Hematocrit 32.2(L) 42.0 - 54.0 % LAB HEMETOLOGY METHOD 03/27/2024 9:44 AM [facility] MCV 76.3(L) 79.0 - 98.0 FL LAB HEMETOLOGY METHOD 03/27/2024 9:44 AM [facility] MCH 23.0(L) 27.0 - 32.0 pcg LAB HEMETOLOGY METHOD 03/27/2024 9:44 AM [facility] MCHC 30.1(L) 32.0 - 37.0 g/dL LAB HEMETOLOGY METHOD 03/27/2024 9:44 AM [facility] RDW 17.0(H) 11.0 - 15.0 % LAB HEMETOLOGY METHOD 03/27/2024 9:44 AM [facility] Platelets 160 130 - 400 K/mcL LAB HEMETOLOGY METHOD 03/27/2024 9:44 AM [facility] MPV LAB HEMETOLOGY METHOD 03/27/2024 9:44 AM [facility] Comment:Not Measured NRBC 0.0 <1.0 % LAB HEMETOLOGY METHOD 03/27/2024 9:44 AM [facility] NRBC Absolute 0.00 <0.10 K/mcL LAB HEMETOLOGY METHOD 03/27/2024 9:44 AM [facility] Neutrophils Relative 82.3 % LAB HEMETOLOGY METHOD 03/27/2024 9:44 AM [facility] Lymphocytes Relative 6.4 % LAB HEMETOLOGY METHOD 03/27/2024 9:44 AM [facility] Monocytes Relative 9.0 % LAB HEMETOLOGY METHOD 03/27/2024 9:44 AM [facility] Eosinophils Relative 0.2 % LAB HEMETOLOGY METHOD 03/27/2024 9:44 AM [facility] Basophils Relative 0.5 % LAB HEMETOLOGY METHOD 03/27/2024 9:44 AM [facility] Immature Granulocytes Relative 1.6 % LAB HEMETOLOGY METHOD 03/27/2024 9:44 AM [facility] Neutrophils Absolute 5.31 1.50 - 7.00 K/mcL LAB HEMETOLOGY METHOD 03/27/2024 9:44 AM [facility] Lymphocytes Absolute 0.41(L) 1.00 - 5.00 K/mcL LAB HEMETOLOGY METHOD 03/27/2024 9:44 AM [facility] Monocytes Absolute 0.58 0.20 - 1.00 K/mcL LAB HEMETOLOGY METHOD 03/27/2024 9:44 AM EST [facility] Eosinophils Absolute 0.01 0.00 - 0.50 K/mcL LAB HEMETOLOGY METHOD 03/27/2024 9:44 AM [facility] Basophils Absolute 0.03 0.00 - 0.20 K/mcL LAB HEMETOLOGY METHOD 03/27/2024 9:44 AM [facility] Immature Granulocytes Absolute 0.10(H) 0.00 - 0.03 K/mcL LAB HEMETOLOGY METHOD 03/27/2024 9:44 AM [facility] Blood Venous blood specimen / Unknown Venipuncture / Unknown 03/27/2024 7:35 AM EST 03/27/2024 9:09 AM EST us Luisa Shepherd NP LAB BLOOD ORDERABLES Final Resul t [facility] [address] [place] [address], * (ABNORMAL) Magnesium (03/27/2024 7:35 AM EST) Only the most recent of2 resultswithin the time period is included. Pathologist [facility] Magnesium 1.2(L) 1.9 - 2.6 mg/dL LAB CHEMISTRY METHOD 03/27/2024 9:42 AM EST [facility] Blood Venous blood specimen / Unknown Venipuncture / Unknown 03/27/2024 7:35 AM EST 03/27/2024 9:08 AM EST Luisa Shepherd NP LAB BLOOD ORDERABLES Final Resul t [facility] [address] [place] [address], * Culture blood (03/26/2024 2:56 PM EST) [facility] Culture, Blood No growth at 5 days 03/31/2024 4:01 PM EST [facility] Blood Venous blood specimen / Unknown Venipuncture / Unknown 03/26/2024 2:56 PM EST 03/26/2024 3:05 PM EST Marion Hernandez MD LAB MICROBIOLOGY - GENERAL ORD ERABLES Final Result [facility] [address] [place] [address], [place] [phone] * Lavender tube (03/26/2024 6:50 AM EST) [facility] Extra Tube Hold for add-ons. 03/26/2024 9:01 AM EST [facility] Comment:Auto resulted. Blood Venous blood specimen / Unknown 03/26/2024 6:50 AM EST 03/26/2024 7:01 AM EST us Marion Hernandez MD LAB BLOOD ORDERABLES Final Res ult [facility] [address] [place] [address], * Respiratory virus panel molecular study (03/25/2024 6:49 PM EST) Adenovirus Detection by PCR Not Detected Not Detected LAB MICROBIOLOGY METHOD 03/25/2024 8:14 PM EST [facility] Influenza A PCR Not Detected Not Detected LAB MICROBIOLOGY METHOD 03/25/2024 8:14 PM EST [facility] Influenza B PCR Not Detected Not Detected LAB MICROBIOLOGY METHOD 03/25/2024 8:14 PM EST [facility] Coronavirus 229E Not Detected Not Detected LAB MICROBIOLOGY METHOD 03/25/2024 8:14 PM EST [facility] Coronavirus HKU1 Not Detected Not Detected LAB MICROBIOLOGY METHOD 03/25/2024 8:14 PM EST [facility] Coronavirus OC43 Not Detected Not Detected LAB MICROBIOLOGY METHOD 03/25/2024 8:14 PM EST [facility] Coronavirus NL63 Not Detected Not Detected LAB MICROBIOLOGY METHOD 03/25/2024 8:14 PM EST [facility] Parainfluenza Virus 1 Not Detected Not Detected LAB MICROBIOLOGY METHOD 03/25/2024 8:14 PM EST [facility] Parainfluenza Virus 2 Not Detected Not Detected LAB MICROBIOLOGY METHOD 03/25/2024 8:14 PM EST [facility] Parainfluenza Virus 3 Not Detected Not Detected LAB MICROBIOLOGY METHOD 03/25/2024 8:14 PM EST [facility] Parainfluenza Virus 4 Not Detected Not Detected LAB MICROBIOLOGY METHOD 03/25/2024 8:14 PM EST [facility] RSV PCR Not Detected Not Detected LAB MICROBIOLOGY METHOD 03/25/2024 8:14 PM EST [facility] Human Metapneumovirus A and B Not Detected Not Detected LAB MICROBIOLOGY METHOD 03/25/2024 8:14 PM EST [facility] Rhinovirus/Entero virus Not Detected Not Detected LAB MICROBIOLOGY METHOD 03/25/2024 8:14 PM EST [facility] Bordetella pertussis Not Detected Not Detected LAB MICROBIOLOGY METHOD 03/25/2024 8:14 PM EST [facility] Bordetella parapertussis Not Detected Not Detected LAB MICROBIOLOGY METHOD 03/25/2024 8:14 PM EST [facility] Mycoplasma pneumo by PCR Not Detected Not Detected LAB MICROBIOLOGY METHOD 03/25/2024 8:14 PM EST [facility] Chlamydia pneumoniae Not Detected Not Detected LAB MICROBIOLOGY METHOD 03/25/2024 8:14 PM [facility] SARS COV-2 Not Detected Not Detected LAB MICROBIOLOGY METHOD 03/25/2024 8:14 PM [facility] Swab Both anterior nares / Unknown Non-blood Collection / Unknown 03/25/2024 6:49 PM EST 03/25/2024 6:59 PM EST [facility] - 03/25/2024 8:14 PM EST Testing was performed using the [employer] Respiratory Pathogen PCR Assay. All results must [...] that are below the limit of detection. us Radha MONTERO LAB MICROBIOLOGY - GENERAL MALAIKA HURD Final Result [facility] [address] [place] [address], * Ethanol (03/25/2024 12:01 PM EST) Ethanol Level <3 0 - 10 mg/dL LAB CHEMISTRY METHOD 03/25/2024 1:57 PM [facility] Blood Venous blood specimen / Unknown Venipuncture / Unknown 03/25/2024 12:01 PM EST 03/25/2024 12:20 PM EST us Radha MONTERO LAB BLOOD ORDERABLES Final Resu lt [facility] [address] [place] [address], [place] [phone] * (ABNORMAL) Urinalysis with reflex microscopic and culture (03/25/2024 8:26 AM EST) Specific [place] Urine 1.015 1.003 - 1.030 LAB URINALYSIS - AUTOMATED METHOD 03/25/2024 9:54 AM [facility] pH, Urine 6.5 5.0 - 8.0 pH LAB URINALYSIS - AUTOMATED METHOD 03/25/2024 9:54 AM [facility] Leukocytes, Urine Trace(A) Negative LAB URINALYSIS - AUTOMATED METHOD 03/25/2024 9:54 AM [facility] Nitrite, Urine Positive(A) Negative LAB URINALYSIS - AUTOMATED METHOD 03/25/2024 9:54 AM [facility] Protein, Urine >=300(A) <=Trace mg/dL LAB URINALYSIS - AUTOMATED METHOD 03/25/2024 9:54 AM [facility] Glucose, Urine 250(A) Negative mg/dL LAB URINALYSIS - AUTOMATED METHOD 03/25/2024 9:54 AM [facility] Ketones, Urine Negative Negative mg/dL LAB URINALYSIS - AUTOMATED METHOD 03/25/2024 9:54 AM [facility] Urobilinogen , Urine 0.2 0.2 - 1.0 mg/dL LAB URINALYSIS - AUTOMATED METHOD 03/25/2024 9:54 AM [facility] Bilirubin, Urine Negative Negative LAB URINALYSIS - AUTOMATED METHOD 03/25/2024 9:54 AM [facility] Blood, Urine Moderate(A) Negative LAB URINALYSIS - AUTOMATED METHOD 03/25/2024 9:54 AM [facility] RBC, Urine 10(H) 0 - 4 /HPF 03/25/2024 9:54 AM [facility] WBC, Urine 80(H) 0 - 4 /HPF 03/25/2024 9:54 AM [facility] Squamous Epithelial, Urine 100(H) 0 - 60 /LPF 03/25/2024 9:54 AM [facility] Crystals, Urine Moderate Amorphous Urate crystals. /LPF 03/25/2024 9:54 AM [facility] Bacteria, Urine Moderate(A) Negative /HPF 03/25/2024 9:54 AM [facility] Urine Urine specimen obtained by clean catch procedure / Unknown Non-blood Collection / Unknown 03/25/2024 8:26 AM EST 03/25/2024 8:54 AM EST Noman Conteh MD LAB URINE ORDERABLES Monse l Result [facility] [address] [place] [address], * Lindsey urine culture tube (03/25/2024 8:26 AM EST) Extra Tube Hold for add-ons. 03/25/2024 10:01 AM [facility] Comment:Auto resulted. Urine Urine specimen obtained by clean catch procedure / Unknown Non-blood Collection / Unknown 03/25/2024 8:26 AM EST 03/25/2024 8:54 AM EST us Noman Conteh MD LAB URINE ORDERABLES Monse l Result Performing Organization Address [facility]/ZIP Co de Phone Number [facility] [address] [place] [address], [place] [phone] * Culture urine (03/25/2024 8:26 AM EST) Culture, Urine No growth 03/26/2024 10:25 AM EST [facility] Urine Urine specimen obtained by clean catch procedure / Unknown Non-blood Collection / Unknown 03/25/2024 8:26 AM EST 03/25/2024 9:54 AM EST us Noman Conteh MD LAB MICROBIOLOGY - GENERA L ORDERABLES Final Result Performing Organization Address [facility] de Phone Number [facility] [address] [place] [address], [place] [phone] * Hepatitis B surface antigen with reflex to confirmation (03/25/2024 8:17 AM EST) Pathologist [facility] Hepatitis B Surface Ag Negative Negative LAB CHEMISTRY METHOD 03/25/2024 12:29 PM EST [facility] Blood Venous blood specimen / Unknown Venipuncture / Unknown 03/25/2024 8:17 AM EST 03/25/2024 8:57 AM EST Narrative [facility] - 03/25/2024 12:29 PM EST Over the counter supplements containing high doses of biotin may interfere with this assay. ??If interference is suspected, patients shoud be retested after refraining from biotin supplements for 72 hours. us Noman Conteh MD LAB BLOOD ORDERABLES Monse l Result Performing Organization Address [facility]/ZIP Co de Phone Number [facility] [address] [place] [address], [place] [phone] * Hepatitis B surface antibody quantitative (03/25/2024 8:17 AM EST) [facility] Hepatitis B Surface Ab Negative Negative LAB CHEMISTRY METHOD 03/25/2024 12:18 PM [facility] Hepatitis B Surface Ab Quantitative 7.1 mIU/mL LAB CHEMISTRY METHOD 03/25/2024 12:18 PM [facility] Blood Venous blood specimen / Unknown Venipuncture / Unknown 03/25/2024 8:17 AM EST 03/25/2024 8:57 AM EST [facility] - 03/25/2024 12:18 PM EST >=10 mIU/mL is considered to be consistent with immunity. Noman Conteh MD LAB BLOOD ORDERABLES Monse martinez Result [facility] [address] [place] [address], * (ABNORMAL) Venous blood gas (03/25/2024 8:17 AM EST) [facility] pH, Parish 7.12(LL) 7.32 - 7.42 pH 03/25/2024 9:04 AM [facility] pCO2, [place] 48 41 - 51 mmHg 03/25/2024 9:04 AM [facility] pO2, [place] 54(H) 25 - 40 mmHg 03/25/2024 9:04 AM [facility] HCO3, Venous 14.2(L) 22.0 - 26.0 mmol/L 03/25/2024 9:04 AM [facility] O2 Sat, Parish 82.3 % 03/25/2024 9:04 AM [facility] Base Excess, Parish -13.3(L) -2.0 - 2.0 mmol/L 03/25/2024 9:04 AM [facility] Blood Venous blood specimen / Unknown Venipuncture / Unknown 03/25/2024 8:17 AM EST 03/25/2024 8:56 AM EST us Noman Conteh MD LAB BLOOD ORDERABLES Monse l Result [facility] [address] [place] [address], [place] [phone] * Ammonia (03/25/2024 8:17 AM EST) [facility] Ammonia 20 11 - 35 mcmol/L LAB CHEMISTRY METHOD 03/25/2024 9:17 AM EST [facility] Blood Venous blood specimen / Unknown Venipuncture / Unknown 03/25/2024 8:17 AM EST 03/25/2024 8:57 AM EST us Noman Conteh MD LAB BLOOD ORDERABLES Monse l Result Performing Organization Address City/[facility]/ZIP Co de Phone Number [facility] [address] [place] [address], [place] [phone] * (ABNORMAL) Comprehensive metabolic panel (03/25/2024 8:17 AM EST) Only the most recent of2 resultswithin the time period is included. [facility] Sodium 134 133 - 145 mmol/L LAB CHEMISTRY METHOD 03/25/2024 9:50 AM [facility] Potassium 6.8(HH) 3.5 - 5.5 mmol/L LAB CHEMISTRY METHOD 03/25/2024 9:50 AM [facility] Chloride 99 96 - 110 mmol/L LAB CHEMISTRY METHOD 03/25/2024 9:50 AM [facility] CO2 17(L) 21 - 32 mmol/L LAB CHEMISTRY METHOD 03/25/2024 9:50 AM [facility] Anion Gap 18(H) 3 - 11 LAB CHEMISTRY METHOD 03/25/2024 9:50 AM [facility] Glucose 144(H) 70 - 100 mg/dL LAB CHEMISTRY METHOD 03/25/2024 9:50 AM [facility] BUN 115(H) 5 - 25 mg/dL LAB CHEMISTRY METHOD 03/25/2024 9:50 AM [facility] Comment:Results verified by repeat testing Creatinine 13.00(HH) 0.70 - 1.30 mg/dL LAB CHEMISTRY METHOD 03/25/2024 9:50 AM [facility] eGFR 4(L) >=60 mL/min/1 .73m2 LAB CHEMISTRY METHOD 03/25/2024 9:50 AM [facility] Comment:Calculation based on the??Chronic Kidney Disease Epidemiology Collaboration (CKD-EPI) equation refit??without adjustment for race. BUN/Creatinine Ratio 8.8 LAB CHEMISTRY METHOD 03/25/2024 9:50 AM [facility] Calcium 8.8 8.5 - 10.5 mg/dL LAB CHEMISTRY METHOD 03/25/2024 9:50 AM [facility] AST (SGOT) 24 10 - 42 unit/L LAB CHEMISTRY METHOD 03/25/2024 9:50 AM [facility] ALT (SGPT) 7(L) 10 - 60 unit/L LAB CHEMISTRY METHOD 03/25/2024 9:50 AM [facility] Alkaline Phosphatase 163(H) 42 - 121 unit/L LAB CHEMISTRY METHOD 03/25/2024 9:50 AM [facility] Total Protein 7.1 6.0 - 8.0 g/dL LAB CHEMISTRY METHOD 03/25/2024 9:50 AM [facility] Albumin 2.7(L) 3.2 - 5.0 g/dL LAB CHEMISTRY METHOD 03/25/2024 9:50 AM [facility] Total Bilirubin 0.4 0.0 - 1.4 mg/dL LAB CHEMISTRY METHOD 03/25/2024 9:50 AM [facility] Blood Venous blood specimen / Unknown Venipuncture / Unknown 03/25/2024 8:17 AM EST 03/25/2024 8:57 AM EST Noman Conteh MD LAB BLOOD ORDERABLES Monse l Result Performing Organization Address City/[facility]/ZIP Co de Phone Number [facility] [address] [place] [address], [place] [phone] * ECG 12 lead (03/25/2024 7:58 AM EST) Ventricular Rate ECG 70 BPM GEMUSE Atrial Rate 70 BPM GEMUSE P-R Interval 174 ms GEMUSE QRS Duration 98 ms GEMUSE Q-T Interval 410 ms GEMUSE QTc 442 ms GEMUSE P Wave Orient 3 degrees GEMUSE R Orient 6 degrees GEMUSE T Orient 87 degrees GEMUSE ECG Interpretation Normal sinus rhythm Poor R wave progression When compared with ECG of 10-AUG-2020 02:25, No significant change was found Confirmed by Meena MACDONALD, ISABELLA ([id number]) on 03/25/2024 9:18:31 AM [facility] 03/25/2024 7:58 AM EST 03/25/2024 9:18 AM EST Noman Conteh MD ECG ORDERABLES Final Res ult Performing Organization Address City/[facility]/ZIP Co de Phone Number [facility] * XR Chest 1 View (03/25/2024 7:46 AM EST) Anatomical Region Laterality Modality Body Radiographic Fawn ging 03/25/2024 8:45 AM EST Impressions 03/25/2024 8:46 AM EST Small right pleural effusion with underlying atelectasis and/or infiltrate. The left lung remains clear. Cardiomegaly, new since 08/10/2020. Code 83717 -------- FINAL REPORT -------- Dictated By: Daren Sol Dictated Date: 03/25/2024 08:45 ET Assigned Physician: Daren Sol Reviewed and Electronically Signed By: Daren Sol Signed Date: 03/25/2024 08:46 ET Workstation ID: [id number] Transcribed By: Self Edit Transcribed Date: 03/25/2024 [...] lung remains clear. Cardiomegaly, new since08/10/2020. Code 04831 -------- FINAL REPORT -------- Dictated By: Daren Sol Dictated Date: 03/25/2024 08:45 ET Assigned Physician: Daren Sol Reviewed and Electronically Signed By: Daren Sol Signed Date: 03/25/2024 08:46 ET Workstation ID: [id number] Transcribed By: Self Edit Transcribed Date: 03/25/2024 08:45 ET Noman Conteh MD IMG XR PROCEDURES Final R esult * ECG-Annotated (03/25/2024) us Provider Onbase ECG ORDERABLES Final Result from Last 3 Months Insurance MEDICARE ADVANTAGE GENERIC on file [employer] MEDICARE [place]ICAID - [place] Advance Directives Documents on File Type Date Recorded Patient Hand Bander Expl anation Advance Directives and Living Will [...] Relationship Healthcare Agent Relationshi p Communication [facility] Care Agent Beau Frank [facility] Agent Care Teams Automotive Assembler Relationship Specialty Start Date End Date Cass Turcios MD [address] [place] [address] [address] [place] [address] PCP - General Geriatric Medicine 04/02/24
--- OUTSIDE RECORDS SUMMARY | 2024-04-30 17:52 | XMS_ITS | Encounter Summary ---
Author Organization [facility], Address [address] [place] [address] Phone Care Team Providers Care Principal Statistical Scientist Name Role Phone Jade Lewis MD Primary Care Provider + [phone] Encounter Details Date Type Department Care Team (Late st Contact Info) Description 04/05/2024 Treatment [facility], [address] [place] [phone] David Holbrook, PANEL RAISER OPERATOR [address] [place] [address] Social History Tobacco Use Types Packs/Day Years [...] encounter Miscellaneous Notes * Dialysis Note - David Holbrook APRN - 04/05/2024 12:00 AM EST Patient: Beau Marie : 1955 Note Type: Dialysis Rounds-Basic Service Date: 04/05/2024 This patient was personally seen for a basic visit as part of routine monthly dialysis care for end stage renal disease. Attending Fnps: DYLAN GRACE Dialysis Location: [facility] Schedule: Shift: HOME MEDICATIONS [facility] Outpatient Medications allopurinol 100 mg tablet [...] Inhub 100-50 mcg/dose blister with device Current UseTogether Allergies Allergen: No Known Allergies Allergen: No Known Drug Allergies Allergen: No Known Food Allergies DIALYSIS PRESCRIPTION Treatment Data Treatment Date: 04/05/2024 started at: 6:03 AM Dialysate / Machine Temp (prescribed): 36.0*C Dialysate / Machine Temp (actual): 36.0*C BFR (prescribed): 450 BFR (actual): 450 DFR (prescribed): Manual 800 DFR (actual): 800 Prescribed Time: 03:30 EDW (kg): 72.5 Dialyzer: 180NRe Optiflux Dialysate: 2.0 K, 2.50 Ca, 1.0 Mg, 100 Dextrose ([id number]) Sodium: 138 Bicarb: 38 Pre Dialysis Vitals Pre BP Sit: 154/89 Pre Wt (kg): 72.5 EDW Deviation (kg): 0.0 Temp: 98.2*F Current Dialysis Vitals BP Sit: 172/104 AP/CORE LOADER: 256/185 Pulse: 91 TREATMENT MEDICATIONS ORDERS Cinacalcet (Sensipar) 60 mg [...] BP AND FLUID ASSESSMENT Post BP Sit 184/100 - 04/03/2024 169/85 - 04/01/2024 174/88 - 03/29/2024 Post Wt (kg) 71.6 - 04/03/2024 71.4 - 04/01/2024 72.5 - 03/29/2024 EDW (kg) 72.5 - 04/03/2024 72.5 - 04/01/2024 74.0 - 03/29/2024 Deviation (kg) -0.9 - 04/03/2024 -1.1 - 04/01/2024 -1.5 - 03/29/2024 ADEQUACY ASSESSMENT Missed Treatments 4 - Last 30 days 9 - Last 60 days Most recently missed on 03/27/2024 spKt/V (Daugirdas II) 0.96 (03/08/24) 1.32 (02/12/24) [...] reviewed. Dietary adjustments made in conjunction with cane pusher. 7.Transplant: The patient is being evaluated for a kidney transplant. Signed by: DAVID HOLBROOK APRN on 04/05/2024 at 02:04:52 PM Transcribed by: DAVID HOLBROOK APRN on 04/05/2024 at 02:04:52 PM documented in this encounter Plan of Treatment Not on file documented as of this encounter Visit Diagnoses Not on filedocumented in this encounter Care Teams Principal Statistical Scientist Relationship Specialty Start Date End Date Jade Lewis MD [address] [place] [address] PCP - General Internal Medicine 04/25/22 documented as of this encounter
--- OUTSIDE RECORDS SUMMARY | 2024-04-30 17:52 | XMS_ITS | Encounter Summary ---
Author Organization [facility], Address [address] [place] [address] Phone Care Team Providers Care Bleach Plant Operator Name Role Phone Jade Lewis MD Primary Care Provider + [phone] Reason for Visit * Reason Comments Med Refill Encounter Details Date Type Department Care Team (Late st Contact Info) Description 10/27/2023 Refill [facility] [address] [place] [phone] Malcolm Taylor MD [address] [place] [address] [place] [address] Social History Tobacco Use Types Packs/Day Years [...] on filedocumented in this encounter Care Teams Bleach Plant Operator Relationship Specialty Start Date End Date Jade Lewis MD [address] [place] [address] PCP - General Internal Medicine 04/25/22 documented as of this encounter
--- OUTSIDE RECORDS SUMMARY | 2024-04-30 17:52 | XMS_ITS | Encounter Summary ---
Author Organization [facility], Address [address] [place] [address] Phone Care Team Providers Care Vender Name Role Phone Jade Lewis MD Primary Care Provider + [phone] Reason for Visit * Reason Comments Med Refill Encounter Details Date Type Department Care Team (Late st Contact Info) Description 06/13/2023 Refill [facility] [address] [place] [phone] Malcolm Taylor MD [address] [place] [phone] Social History Tobacco Use Types Packs/Day Years [...] on filedocumented in this encounter Care Teams Vender Relationship Specialty Start Date End Date Jade Lewis MD [address] [place] [address] PCP - General Internal Medicine 04/25/22 documented as of this encounter
--- OUTSIDE RECORDS SUMMARY | 2024-04-30 17:52 | XMS_ITS | Encounter Summary ---
Author Organization [facility] Address [address] [place] [address] Care Team Providers Care Screen Printing Machine Operator Helper Name Role Phone Cass Turcios MD Primary Care Provider [phone] Encounter Details Date Type Department Care Team (Late st Contact Info) Description 04/02/2024 Lab Requisition [facility] [address] [facility] [place] [address] Cass Turcios MD [address] [place] [address] End stage renal disease (CMS/HCC) Social History [...] care for your loved ones. For example, early childhood specialist or elderly care for an older [...] on file Sexual Orientation Not on file documented as [...] mmol/L LAB CHEMISTRY METHOD 04/02/2024 10:35 AM [facility] Potassium 5.6(H) 3.5 - 5.5 mmol/L LAB CHEMISTRY METHOD 04/02/2024 10:35 AM [facility] Chloride 95(L) 96 - 110 mmol/L LAB CHEMISTRY METHOD 04/02/2024 10:35 AM [facility] CO2 32 21 - 32 mmol/L LAB CHEMISTRY METHOD 04/02/2024 10:35 AM [facility] Anion Gap 8 3 - 11 LAB CHEMISTRY METHOD 04/02/2024 10:35 AM [facility] Glucose 32(LL) 70 - 100 mg/dL LAB CHEMISTRY METHOD 04/02/2024 10:35 AM [facility] BUN 50(H) 5 - 25 mg/dL LAB CHEMISTRY METHOD 04/02/2024 10:35 AM [facility] Creatinine 7.72(H) 0.70 - 1.30 mg/dL LAB CHEMISTRY METHOD 04/02/2024 10:35 AM [facility] eGFR 7(L) >=60 mL/min/1. 73m2 LAB CHEMISTRY METHOD 04/02/2024 10:35 AM [facility] Comment:Calculation based on the??Chronic Kidney Disease Epidemiology Collaboration (CKD-EPI) equation refit??without adjustment for race. BUN/Creatinine Ratio 6.5 LAB CHEMISTRY METHOD 04/02/2024 10:35 AM [facility] Calcium 8.3(L) 8.5 - 10.5 mg/dL LAB CHEMISTRY METHOD 04/02/2024 10:35 AM [facility] Blood Venous blood specimen / Unknown Venipuncture / Unknown 04/02/2024 5:24 AM EST 04/02/2024 8:48 AM EST us Cass Turcios MD LAB BLOOD ORDERABLES Final Resul t [facility] [address] [place] [address], * (ABNORMAL) Complete blood count (04/02/2024 5:24 AM EST) WBC 26.2(H) 4.8 - 10.8 K/mcL LAB HEMETOLOGY METHOD 04/02/2024 9:47 AM [facility] RBC 4.10(L) 4.50 - 5.50 M/mcL LAB HEMETOLOGY METHOD 04/02/2024 9:47 AM [facility] Hemoglobin 9.4(L) 13.5 - 17.5 g/dL LAB HEMETOLOGY METHOD 04/02/2024 9:47 AM [facility] Hematocrit 31.2(L) 42.0 - 54.0 % LAB HEMETOLOGY METHOD 04/02/2024 9:47 AM [facility] MCV 76.1(L) 79.0 - 98.0 FL LAB HEMETOLOGY METHOD 04/02/2024 9:47 AM [facility] MCH 22.9(L) 27.0 - 32.0 pcg LAB HEMETOLOGY METHOD 04/02/2024 9:47 AM [facility] MCHC 30.1(L) 32.0 - 37.0 g/dL LAB HEMETOLOGY METHOD 04/02/2024 9:47 AM [facility] RDW 17.1(H) 11.0 - 15.0 % LAB HEMETOLOGY METHOD 04/02/2024 9:47 AM [facility] Platelets 349 130 - 400 K/mcL LAB HEMETOLOGY METHOD 04/02/2024 9:47 AM [facility] MPV 11.4(H) 7.0 - 11.0 FL LAB HEMETOLOGY METHOD 04/02/2024 9:47 AM EST [facility] NRBC 0.0 <1.0 % LAB HEMETOLOGY METHOD 04/02/2024 9:47 AM EST [facility] NRBC Absolute 0.00 <0.10 K/mcL LAB HEMETOLOGY METHOD 04/02/2024 9:47 AM EST [facility] Blood Venous blood specimen / Unknown Venipuncture / Unknown 04/02/2024 5:24 AM EST 04/02/2024 8:48 AM EST us Cass Turcios MD LAB BLOOD ORDERABLES Final Resul t [facility] [address] [place] [address], documented in this encounter Visit Diagnoses Diagnosis End stage renal disease (CMS/[facility]) End stage renal disease documented in this encounter Care Teams Screen Printing Machine Operator Helper Relationship Specialty Start Date End Date Cass Turcios MD [address] [place] [address] [address] [place] [address] PCP - General Geriatric Medicine 04/02/24 documented as of this encounter
--- OUTSIDE RECORDS SUMMARY | 2024-04-30 17:52 | XMS_ITS | Encounter Summary ---
Author Organization [facility], Address [address] [place] [address] Phone Care Team Providers Care Business Analyst Ecommerce Name Role Phone Jade Lewis MD Primary Care Provider [phone] Reason for Visit * Reason Comments Med Refill Encounter Details Date Type Department Care Team (Late st Contact Info) Description 05/22/2023 Refill [facility] [address] [place] [phone] Car Mcdonald MD [facility] [place] [address] Social History Tobacco Use Types Packs/Day Years [...] filedocumented in this encounter Care Teams Business Analyst Ecommerce Relationship Specialty Start Date End Date Jade Lewis MD [address] [place] [address] PCP - General Internal Medicine 04/25/22 documented as of this encounter
--- OUTSIDE RECORDS SUMMARY | 2024-04-30 17:52 | XMS_ITS | Encounter Summary ---
Author Organization [facility], Address [address] [place] [address] Phone Care Team Providers Care Ciso Name Role Phone Jade Lewis MD Primary Care Provider [phone] Encounter Details Date Type Department Care Team (Late st Contact Info) Description 10/28/2019 Orders Only [facility] [address] [phone] [place] [address] [place] [phone] Social History Tobacco Use Types Packs/Day Years [...] on filedocumented in this encounter Care Teams Ciso Relationship Specialty Start Date End Date Jade Lewis MD [address] [place] [address] PCP - General Internal Medicine 04/25/22 documented as of this encounter
--- OUTSIDE RECORDS SUMMARY | 2024-04-30 17:52 | XMS_ITS | Encounter Summary ---
Author Organization [facility], Address [address] [place] [address] Phone Care Team Providers Care Application Systems Engineer Name Role Phone Jade Lewis MD Primary Care Provider + [phone] Encounter Details Date Type Department Care Team (Late st Contact Info) Description 04/03/2024 Orders Only [facility] [address] [place] [address] Car Mcdonald MD [address] [place] [address] [place] [address] Social History Tobacco Use Types Packs/Day Years [...] x 3 28.5(L) 42.0 - 54.0 % [facility] 04/03/2024 04/04/2024 8:1 6 AM EST Narrative NIKKY - 04/04/2024 Unless otherwise specified, test(s) performed at: [facility], [address] [place] [address] RESEARCH ASSISTANT PROFESSOR: Homero Garcia M.D. For any questions, please call customer service at FREQUENCY:OTHER Resulting Agency Comment Specimen source: Blood us Car Mcdonald MD LAB BLOOD ORDERABLES Final Re sult [facility] See order comments or contact performing lab Unknown, [place] documented in this encounter Visit Diagnoses Not on filedocumented in this encounter Care Teams Application Systems Engineer Relationship Specialty Start Date End Date Jade Lewis MD [address] [place] [address] PCP - General Internal Medicine 04/25/22 documented as of this encounter
--- OUTSIDE RECORDS SUMMARY | 2024-04-30 17:52 | XMS_ITS | Encounter Summary ---
Author Organization [facility] Address [address] [place] [address] Phone Care Team Providers Care Space Systems Operations Manager Name Role Phone Jade Lewis MD Primary Care Provider + [phone] Reason for Visit * Reason Comments Med Refill Encounter Details Date Type Department Care Team (Late st Contact Info) Description 04/30/2021 Refill [facility] [address] [place] [phone] Alejandro Santana MD [address] [place] [phone] Social History Tobacco Use Types Packs/Day Years [...] on filedocumented in this encounter Care Teams Space Systems Operations Manager Relationship Specialty Start Date End Date Jade Lewis MD [address] [place] [address] PCP - General Internal Medicine 04/25/22 documented as of this encounter
--- OUTSIDE RECORDS SUMMARY | 2024-04-30 17:52 | XMS_ITS | Encounter Summary ---
Author Organization [facility], Address [address] [place] [address] Phone Care Team Providers Care Mill Work Name Role Phone Jade Lewis MD Primary Care Provider + [phone] Encounter Details Date Type Department Care Team (Late st Contact Info) Description 04/19/2024 Orders Only [facility] [address] [place] [address] Car Mcdonald MD [address] [place] [address] [place] [address] Social History Tobacco Use Types Packs/Day Years [...] Procedure Name Priority Date/Time Associated Diagnosis Comments IMMUNO CHEMISTRY Routine 04/19/2024 HEMATOLOGY Routine 04/19/2024 CHEMISTRY Routine 04/19/2024 CHEMISTRY Routine 04/19/2024 documented in this encounter Results * (ABNORMAL) [facility] Chemistry (04/19/2024) Creatinine 7.75(H) 0.60 - 1.30 mg/dL [facility] Sodium 138 136 - 145 mEq/L [facility] Potassium 4.9 3.5 - 5.1 mEq/L [facility] Chloride 95(L) 96 - 108 mEq/L [facility] Bicarbonate (CO2) 22 22 - 29 mEq/L [facility] Calcium 7.7(L) 8.4 - 10.2 mg/dL [facility] Corrected Calcium 8.4 8.4 - 10.2 mg/dL [facility] Comment: Corrected Calcium is not equivalent to measured Ionized Calcium. Phosphorus 7.9(H) 2.6 - 4.5 mg/dL [facility] Calcium Phosphorus Product 61(H) 0 - 54 [facility] Calcium Phosporus Product, Cor 66(H) 0 - 54 [facility] Alkaline Phosphatase 124 40 - 129 U/L [facility] ALT (SGPT) 11 7 - 52 U/L [facility] Albumin 3.1(L) 3.5 - 5.2 g/dL [facility] Magnesium 2.1 1.6 - 2.6 mg/dL [facility] Iron 35(L) 45 - 160 mcg/dL [facility] UIBC 87(L) 155 - 355 mcg/dL [facility] TIBC 122(L) 185 - 515 mcg/dL [facility] Iron Saturation (TSat) 29 20 - 55 % [facility] Ferritin 1,172(H) 22 - 322 ng/mL [facility] Comment: Verified by repeat analysis. 04/19/2024 04/20/2024 12: 30 PM EST Narrative [facility] - 04/22/2024 Unless otherwise specified, test(s) performed at: [facility], [address] [place] [address] HYDROGEN PLANT OPERATIONS MANAGER: Homero Garcia M.D. For any questions, please call customer service at FREQUENCY:MONTHLY Resulting Agency Comment Specimen source: Serum us Car Mcdonald MD LAB BLOOD ORDERABLES Edited R esult - Final [facility] See order comments or contact performing lab Unknown, [place] * IMMUNO CHEMISTRY (04/19/2024) Pathologist [facility] Hep B Surface Ag Negative Negative [facility] 04/19/2024 04/20/2024 12: 30 PM EST Narrative [facility] - 04/20/2024 Unless otherwise specified, test(s) performed at: [facility], [address] [place] [id number] HYDROGEN PLANT OPERATIONS MANAGER: Homero Garcia M.D. For any questions, please call customer service at FREQUENCY:MONTHLY Resulting Agency Comment Specimen source: Serum Car Mcdonald MD LAB BLOOD ORDERABLES Final Re sult Performing Organization Address [facility] de Phone Number [facility] See order comments or contact performing lab Unknown, [place] * (ABNORMAL) [facility] Chemistry (04/19/2024) Pathologist [facility] PTH 773(H) 16 - 80 pg/mL [facility] 04/19/2024 04/20/2024 12: 01 PM EST Narrative [facility] - 04/20/2024 Unless otherwise specified, test(s) performed at: [facility], [address] [place] [address] HYDROGEN PLANT OPERATIONS MANAGER: Hoemro Garcia M.D. For any questions, please call customer service at FREQUENCY:MONTHLY Resulting Agency Comment Specimen source: Plasma Car Mcdonald MD LAB BLOOD ORDERABLES Final Re sult Performing Organization Address [facility] Co de Phone Number [facility] See order comments or contact performing lab Unknown, [place] * (ABNORMAL) HEMATOLOGY (04/19/2024) Pathologist [facility] Hemoglobin 9.2(L) 14.0 - 18.0 g/dL [facility] Hemoglobin x 3 27.6(L) 42.0 - 54.0 % [facility] 04/19/2024 04/20/2024 12: 01 PM EST Narrative [facility] - 04/20/2024 Unless otherwise specified, test(s) performed at: [facility], [address] [place] [address] HYDROGEN PLANT OPERATIONS MANAGER: Homero Garcia M.D. For any questions, please call customer service at FREQUENCY:MONTHLY Resulting Agency Comment Specimen source: Blood us Car Mcdonald MD LAB BLOOD ORDERABLES Final Re sult [facility] See order comments or contact performing lab Unknown, [place] documented in this encounter Visit Diagnoses Not on filedocumented in this encounter Care Teams Mill Work Relationship Specialty Start Date End Date Jade Lewis MD [address] [place] [address] PCP - General Internal Medicine 04/25/22 documented as of this encounter
--- OUTSIDE RECORDS SUMMARY | 2024-04-30 17:52 | XMS_ITS | Encounter Summary ---
Author Organization [facility], Address [address] [place] [address] Phone Care Team Providers Care Optical Scientist Name Role Phone Jade Lewis MD Primary Care Provider + [phone] Encounter Details Date Type Department Care Team (Late st Contact Info) Description 04/24/2024 Orders Only [facility] [address] [place] [address] Car Mcdonald MD [address] [place] [address] [place] [address] Social History Tobacco Use Types Packs/Day Years [...] Priority Date/Time Associated Diagnosis Comments HEMATOLOGY Routine 04/24/2024 documented in this encounter Results * (ABNORMAL) HEMATOLOGY (04/24/2024) Hemoglobin 9.9(L) 14.0 - 18.0 g/dL [facility] Hemoglobin x 3 29.7(L) 42.0 - 54.0 % [facility] 04/24/2024 04/25/2024 9:3 0 AM EST Narrative MARISELAE - 04/25/2024 Unless otherwise specified, test(s) performed at: [facility], [address] [place] [address] CLOTH EDGE SINGER: Homero Garcia M.D. For any questions, please call customer service at FREQUENCY:OTHER Resulting Agency Comment Specimen source: Blood us Car Mcdonald MD LAB BLOOD ORDERABLES Final Re sult [facility] See order comments or contact performing lab Unknown, [place] documented in this encounter Visit Diagnoses Not on filedocumented in this encounter Care Teams Optical Scientist Relationship Specialty Start Date End Date Jade Lewis MD [address] [place] [address] PCP - General Internal Medicine 04/25/22 documented as of this encounter
--- OUTSIDE RECORDS SUMMARY | 2024-04-30 17:52 | XMS_ITS | Encounter Summary ---
Author Organization [facility] Address [address] [facility] [address] [place] [address] Phone Care Team Providers Care Cycle Specialist Name Role Phone Jade Lewis MD Primary Care Provider + [phone] Reason for Visit * Reason Onset Date Comments Med Refill 04/19/2022 Encounter Details Date Type Department Care Team (Late st Contact Info) Description 04/19/2022 Refill [facility] [address] [place] [phone] Loida Madsen Social History Tobacco Use Types [...] on filedocumented in this encounter Care Teams Cycle Specialist Relationship Specialty Start Date End Date Jade Lewis MD [address] [place] [address] PCP - General Internal Medicine 04/25/22 documented as of this encounter
--- OUTSIDE RECORDS SUMMARY | 2024-04-30 17:52 | XMS_ITS | Encounter Summary ---
Author Organization [facility], Address [address] [place] [address] Phone Care Team Providers Care Log Marker Name Role Phone Jade Lewis MD Primary Care Provider + [phone] Encounter Details Date Type Department Care Team (Late st Contact Info) Description 2024 Treatment [facility], [address] [place] [phone] Arely Hernández, BONE WORKER [address] [place] [address] Social History Tobacco Use Types Packs/Day Years [...] encounter Miscellaneous Notes * Dialysis Note - Arely Hernández APRN - 2024 12:00 AM EST Patient: BEAU MARIE, 1955, 69y, M Dialysis Location: [facility] [place] Attending Cold Press Operator: Car Mcdonald Service Date: 2024 Service Provider: Arely Hernández NP I met face to face with the patient today. 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 LAST HOSPITALIZATION Discharge Diagnosis: Z89.511 Acquired absence of right leg below knee Admission Date 04/05/24 Discharge Date 04/18/24 DIALYSIS PRESCRIPTION IHD 3x Week Start date: 04/24/24 Dialyzer: 180NRe Optiflux BFR: 450 DFR: Manual 800 Potassium: 2.0 Sodium: 138 EDW: 66.5 Duration: 3:30 Calcium: 2.50 Bicarb: 38 Rx updated on: 04/24/2024 TREATMENT ASSESSMENT BP Sit Pre 04/24/2024: 161/89 04/22/2024: 143/116 04/19/2024: 216/110 BP Sit Post 04/24/2024: 130/86 04/22/2024: 151/90 04/19/2024: 183/110 Tx Duration 04/24/2024: 2:26 04/22/2024: 2:49 04/19/2024: 2:16 Missed Treatments 0 - last 30 days 2 - last 60 days 03/05 - recent FLUID ASSESSMENT EDW (kg) 04/24/2024: 68.0 04/22/2024: 68.0 04/19/2024: 69.5 Weight Pre (kg) 04/24/2024: 69.6 04/22/2024: 70.5 04/19/2024: 69.8 Weight Post (kg) 04/24/2024: 66.8 04/22/2024: 68.2 04/19/2024: 68.0 PWV (kg) 04/24/2024: -1.2 04/22/2024: 0.2 04/19/2024: -1.5 UF Rate (mL/kg/hr) 04/24/2024: 17.2 04/22/2024: 12 04/19/2024: 11.7 ADEQUACY ASSESSMENT spKt/V, URR 04/22/2024: 1.46, 71.0 03/13/2024: 1.18, 65.0 03/08/2024: 0.96, 57.0 ACCESS ASSESSMENT Access Type: CVCatheter Access SubType: Tunneled Access Status: Active (In Use) - 08/09/2023 Access Location: Neck Placed: 08/08/2023 ANEMIA ASSESSMENT HGB, TSAT 04/24/2024: 9.9, - 04/19/2024: 9.2, 29.0 04/03/2024: 9.5, - Ferritin 04/19/2024: 1172.0 03/08/2024: 1289.0 02/21/2024: 800.0 Mircera, IVP (mcg) 04/19/2024: 75 03/13/2024: 60 Iron Sucrose (Venofer) (mg) 03/18/2024: 100 03/15/2024: 100 03/13/2024: 100 BMM ASSESSMENT PTH, Intact 04/19/2024: 773.0 03/08/2024: 826.0 02/12/2024: 705.0 Calcium, Phosphorus 04/19/2024: 7.7, 7.9 03/08/2024: 9.0, 5.9 02/12/2024: 8.1, 8.4 Vitamin D (Calcitriol) Oral (mcg) 04/24/2024: 1.50 04/22/2024: 1.50 04/19/2024: 1.50 Cinacalcet (Sensipar) (mg) 04/24/2024: 60 04/22/2024: 60 04/19/2024: 60 NUTRITION ASSESSMENT Potassium, Albumin 04/19/2024: 4.9, 3.1 03/08/2024: 5.1, 3.7 02/12/2024: 5.5, 3.8 eNPCR 04/22/2024: 1.12 03/13/2024: 1.02 01/15/2024: 0.86 DIAGNOSIS Chief Complaint: N18.6 End stage renal disease Comments: Patient seen and examined. VSS with no complaints to offer. S1, S2, RRR. LS CTA bilaterally. Access patent. Patient is stable. Patient data updated 2024 at 8:33 AM Signed By: Arely Hernández NP on 2024 8:33:33 AM documented in this encounter Plan of Treatment Not on file documented as of this encounter Visit Diagnoses Not on filedocumented in this encounter Care Teams Log Marker Relationship Specialty Start Date End Date Jade Lewis MD [address] [place] [address] PCP - General Internal Medicine 04/25/22 documented as of this encounter
--- OUTSIDE RECORDS SUMMARY | 2024-04-30 17:52 | XMS_ITS | Encounter Summary ---
Author Organization [facility], Address [address] [place] [address] Phone Care Team Providers Care Vacuum Pan Tender Name Role Phone Jade Lewis MD Primary Care Provider + [phone] Encounter Details Date Type Department Care Team (Late st Contact Info) Description 2024 Orders Only [facility] [address] [place] [address] Car Mcdonald MD [address] [place] [address] [place] [address] Social History Tobacco Use Types Packs/Day Years [...] Date/Time Associated Diagnosis Comments HD KINETICS Routine 2024 POST CHEMISTRY Routine 2024 CHEMISTRY Routine 2024 [facility] LAB RESULTS Routine 2024 documented in this encounter Results * [facility] Lab Results (2024) Pathologist [facility] spKt/V (Daugirdas II) 1.12 [facility] eKdrt/V 0.85 [facility] WSTDKT/V 2.1 [facility] nPCR_HD 1.21 [facility] spKt/V Gotch 1.14 [facility] [place] eKt/V Gotch 0.85 [facility] Center PCR 77.04 [facility] eKt/V (Tattersall) 0.88 [facility] eNPCR 1.05 [facility] 2024 2024 [facility] [place] LAB BLOOD ORDERABLES Final Result [facility] Contact Performing lab Unknown, [place] * (ABNORMAL) HD KINETICS (2024) [facility] % Urea Reduction 64(L) 65 - 80 % [facility] 2024 04/27/2024 12: 06 PM EST Narrative [facility] - 04/27/2024 Unless otherwise specified, test(s) performed at: [facility], [address] [place] [address] CAFETERIA COUNTER ATTENDANT: Homero Garcia M.D. For any questions, please call customer service at FREQUENCY:OTHER Resulting Agency Comment Specimen source: Plasma Car Mcdonald MD LAB BLOOD ORDERABLES Final Re sult [facility] See order comments or contact performing lab Unknown, [place] * (ABNORMAL) Spectra Chemistry (2024) [facility] BUN 83(H) 6 - 19 mg/dL [facility] 2024 04/27/2024 11: 43 AM EST Narrative [facility] - 04/27/2024 Unless otherwise specified, test(s) performed at: [facility], [address] [place] [id number] CAFETERIA COUNTER ATTENDANT: Homero Garcia M.D. For any questions, please call customer service at FREQUENCY:OTHER Resulting Agency Comment Specimen source: Serum Car Mcdonald MD LAB BLOOD ORDERABLES Final Re sult Performing Organization Address City/[facility] Hospital/ZIP Co de Phone Number [facility] See order comments or contact performing lab Unknown, [place] * (ABNORMAL) POST CHEMISTRY (2024) BUN Post Dialysis 30(H) 6 - 19 mg/dL [facility] 2024 04/27/2024 12: 06 PM EST Narrative [facility] - 04/27/2024 Unless otherwise specified, test(s) performed at: [facility], [address] [place] [address] [place] COUNTER ATTENDANT: Homero Garcia M.D. For any questions, please call customer service at FREQUENCY:OTHER Resulting Agency Comment Specimen source: Plasma Car Mcdonald MD LAB BLOOD ORDERABLES Final Re sult Performing Organization Address [facility] Hospital/ZIP Co de Phone Number [facility] See order comments or contact performing lab Unknown, [place] documented in this encounter Visit Diagnoses Not on filedocumented in this encounter Care Teams Vacuum Pan Tender Relationship Specialty Start Date End Date Jade Lewis MD [address] [place] [address] PCP - General Internal Medicine 04/25/22 documented as of this encounter
--- OUTSIDE RECORDS SUMMARY | 2024-04-30 17:52 | XMS_ITS | Encounter Summary ---
Author Organization [facility], Address [address] [place] [address] Phone Care Team Providers Care Credit Product Analyst Name Role Phone Jade Lewis MD Primary Care Provider + [phone] Encounter Details Date Type Department Care Team (Late st Contact Info) Description 04/22/2024 Orders Only [facility] [address] [place] [address] Car Mcdonald MD [address] [place] [address] [place] [address] Social History Tobacco Use Types Packs/Day Years [...] Date/Time Associated Diagnosis Comments HD KINETICS Routine 04/22/2024 POST CHEMISTRY Routine 04/22/2024 CHEMISTRY Routine 04/22/2024 [facility] RESULTS Routine 04/22/2024 documented in this encounter Results * [facility] Lab Results (04/22/2024) Pathologist [facility] eNPCR 1.12 [facility] spKt/V Gotch 1.46 [facility] PCR 82.11 [facility] eKt/V Gotch 1.18 [facility] spKt/V (Daugirdas II) 1.46 [facility] eKdrt/V 1.18 [facility] eKt/V (Tattersall) 1.21 [facility] nPCR_HD 1.21 [facility] WSTDKT/V 1.6 [facility] 04/22/2024 04/22/2024 [facility] Ordering Provider LAB BLOOD ORDERABLES Final Result Performing Organization Address City/[facility]/ZIP Co de Phone Number [facility] Contact Performing lab Unknown, [place] * HD KINETICS (04/22/2024) [facility] % Urea Reduction 71 65 - 80 % [facility] 04/22/2024 04/25/2024 1:0 9 PM EST Narrative [facility] - 04/25/2024 Unless otherwise specified, test(s) performed at: [facility], [address] [place], [place] [id number] CONE PICKER: Homero Garcia M.D. For any questions, please call customer service at FREQUENCY:OTHER Resulting Agency Comment Specimen source: Plasma Car Mcdonald MD LAB BLOOD ORDERABLES Final Re sult [facility] See order comments or contact performing lab Unknown, [place] * (ABNORMAL) [facility] Chemistry (04/22/2024) [facility] BUN 91(H) 6 - 19 mg/dL [facility] 04/22/2024 04/25/2024 11: 48 AM EST Narrative [facility] - 04/25/2024 Unless otherwise specified, test(s) performed at: [facility], [address] [place] [id number] CONE PICKER: Homero Garcia M.D. For any questions, please call customer service at FREQUENCY:OTHER Resulting Agency Comment Specimen source: Serum Car Mcdonald MD LAB BLOOD ORDERABLES Final Re sult Performing Organization Address City/[facility] Co de Phone Number [facility] See order comments or contact performing lab Unknown, [place] * (ABNORMAL) POST CHEMISTRY (04/22/2024) BUN Post Dialysis 26(H) 6 - 19 mg/dL [facility] 04/22/2024 04/25/2024 1:0 9 PM EST Narrative [facility] - 04/25/2024 Unless otherwise specified, test(s) performed at: [facility], [address] [place] [id number] CONE PICKER: Homero Garcia M.D. For any questions, please call customer service at FREQUENCY:OTHER Resulting Agency Comment Specimen source: Plasma Car Mcdonald MD LAB BLOOD ORDERABLES Final Re sult Performing Organization Address [facility] Co de Phone Number [facility] See order comments or contact performing lab Unknown, [place] documented in this encounter Visit Diagnoses Not on filedocumented in this encounter Care Teams Credit Product Analyst Relationship Specialty Start Date End Date Jade Lewis MD [address] [place] [address] PCP - General Internal Medicine 04/25/22 documented as of this encounter
--- OUTSIDE RECORDS SUMMARY | 2024-04-30 17:52 | XMS_ITS | Encounter Summary ---
Author Organization [facility] Address [address] [place] [address] Phone Care Team Providers Care Evaluation Engineer Name Role Phone Jade Lewis MD Primary Care Provider + [phone] Reason for Visit * Reason Comments Med Refill Encounter Details Date Type Department Care Team (Late st Contact Info) Description 07/23/2021 Refill [facility] [address] [place] [phone] Alejandro Santana MD [address] [place] [phone] Social History Tobacco Use Types Packs/Day Years [...] on filedocumented in this encounter Care Teams Evaluation Engineer Relationship Specialty Start Date End Date Jade Lewis MD [address] [place] [address] PCP - General Internal Medicine 04/25/22 documented as of this encounter
--- OUTSIDE RECORDS SUMMARY | 2024-04-30 17:52 | XMS_ITS | Encounter Summary ---
Author Organization [facility] Address [address] [place] [address] Care Team Providers Care Meeting/Event Planner Name Role Phone Lainey Cody ESTUARDO Primary Care Provider [phone] Reason for Visit * Reason Comments Correspondence Encounter Details Date Type Department Care Team ([facility] Contact Info) Description 04/18/2024 Interim Notes [facility] [address] [place] [phone] [place]aki [place], [place] [address] [place] [address] Social History Tobacco Use Types Packs/Day Years [...] Orientation Straight 07/20/2017 12 :54 PM PDT documented as of this encounter Progress Notes * Jaki Veliz [place] - 04/18/2024 4:57 PM EST Faxed over script for oxycodone [facility] [phone]. Confirmation and script sent down for scanning documented in this encounter Plan of Treatment Upcoming Encounters Date Type Department Care Team (Late st Contact Info) Description 05/02/2024 2:40 PM EST Office Visit [facility] [address] [place] [address] Ninfa Edmonds FNP [address] [place] [address] Gilda Bustos [address] [place] [address] documented as of this encounter Visit Diagnoses Not on filedocumented in this encounter Additional Health Concerns Assessment Noted Time PHQ-9 Depression Total Score: 0 03/14/19 25 9:51 AM PST documented as of this encounter Care Teams Meeting/Event Planner Relationship Specialty Start Date End Date Lainey Cody FNP [address] [place] [address] PCP - General Internal Medicine 12/11/23 documented as of this encounter
--- OUTSIDE RECORDS SUMMARY | 2024-04-30 17:52 | XMS_ITS | Encounter Summary ---
Author Organization [facility] Address [address] [place] [address] Care Team Providers Care Front Line Supervisor Name Role Phone Cass Turcios MD Primary Care Provider [phone] Encounter Details Date Type Department Care Team (Late st Contact Info) Description 03/25/2024 Lab Requisition [facility] - Main Lab [address] [facility] [place] [address] Cass Turcios MD [address] [place] [address] Anemia, unspecified; Chronic diastolic (congestive) heart failure [...] your loved ones. For example, early childhood associate teacher or elderly care for an older adult? [...] mmol/L LAB CHEMISTRY METHOD 03/25/2024 2:44 PM [facility] Potassium 7.3(HH) 3.5 - 5.5 mmol/L LAB CHEMISTRY METHOD 03/25/2024 2:44 PM [facility] Chloride 101 96 - 110 mmol/L LAB CHEMISTRY METHOD 03/25/2024 2:44 PM [facility] CO2 15(L) 21 - 32 mmol/L LAB CHEMISTRY METHOD 03/25/2024 2:44 PM [facility] Anion Gap 17(H) 3 - 11 LAB CHEMISTRY METHOD 03/25/2024 2:44 PM [facility] Glucose 62(L) 70 - 100 mg/dL LAB CHEMISTRY METHOD 03/25/2024 2:44 PM [facility] BUN 112(H) 5 - 25 mg/dL LAB CHEMISTRY METHOD 03/25/2024 2:44 PM [facility] Creatinine 12.80(HH) 0.70 - 1.30 mg/dL LAB CHEMISTRY METHOD 03/25/2024 2:44 PM [facility] eGFR 4(L) >=60 mL/min/1 .73m2 LAB CHEMISTRY METHOD 03/25/2024 2:44 PM [facility] Comment:Calculation based on the??Chronic Kidney Disease Epidemiology Collaboration (CKD-EPI) equation refit??without adjustment for race. BUN/Creatinine Ratio 8.8 LAB CHEMISTRY METHOD 03/25/2024 2:44 PM [facility] Calcium 8.8 8.5 - 10.5 mg/dL LAB CHEMISTRY METHOD 03/25/2024 2:44 PM [facility] AST (SGOT) 21 10 - 42 unit/L LAB CHEMISTRY METHOD 03/25/2024 2:44 PM [facility] ALT (SGPT) 9(L) 10 - 60 unit/L LAB CHEMISTRY METHOD 03/25/2024 2:44 PM [facility] Alkaline Phosphatase 172(H) 42 - 121 unit/L LAB CHEMISTRY METHOD 03/25/2024 2:44 PM [facility] Total Protein 6.9 6.0 - 8.0 g/dL LAB CHEMISTRY METHOD 03/25/2024 2:44 PM [facility] Albumin 2.7(L) 3.2 - 5.0 g/dL LAB CHEMISTRY METHOD 03/25/2024 2:44 PM [facility] Total Bilirubin 0.4 0.0 - 1.4 mg/dL LAB CHEMISTRY METHOD 03/25/2024 2:44 PM [facility] Blood Venous blood specimen / Unknown Venipuncture / Unknown 03/25/2024 5:09 AM EST 03/25/2024 11:52 AM EST us Cass Turcios MD LAB BLOOD ORDERABLES Final Resul t [facility] [address] [place] [address], * (ABNORMAL) Complete blood count (03/25/2024 5:09 AM EST) WBC 14.1(H) 4.8 - 10.8 K/mcL LAB HEMETOLOGY METHOD 03/25/2024 2:27 PM [facility] RBC 4.60 4.50 - 5.50 M/mcL LAB HEMETOLOGY METHOD 03/25/2024 2:27 PM [facility] Hemoglobin 10.5(L) 13.5 - 17.5 g/dL LAB HEMETOLOGY METHOD 03/25/2024 2:27 PM [facility] Hematocrit 35.9(L) 42.0 - 54.0 % LAB HEMETOLOGY METHOD 03/25/2024 2:27 PM [facility] MCV 77.7(L) 79.0 - 98.0 FL LAB HEMETOLOGY METHOD 03/25/2024 2:27 PM [facility] MCH 22.7(L) 27.0 - 32.0 pcg LAB HEMETOLOGY METHOD 03/25/2024 2:27 PM [facility] MCHC 29.2(L) 32.0 - 37.0 g/dL LAB HEMETOLOGY METHOD 03/25/2024 2:27 PM [facility] RDW 17.5(H) 11.0 - 15.0 % LAB HEMETOLOGY METHOD 03/25/2024 2:27 PM [facility] Platelets 254 130 - 400 K/mcL LAB HEMETOLOGY METHOD 03/25/2024 2:27 PM [facility] MPV LAB HEMETOLOGY METHOD 03/25/2024 2:27 PM [facility] Comment:Not Measured NRBC 0.0 <1.0 % LAB HEMETOLOGY METHOD 03/25/2024 2:27 PM [facility] NRBC Absolute 0.00 <0.10 K/mcL LAB HEMETOLOGY METHOD 03/25/2024 2:27 PM [facility] Blood Venous blood specimen / Unknown Venipuncture / Unknown 03/25/2024 5:09 AM EST 03/25/2024 11:52 AM EST us Cass Turcios MD LAB BLOOD ORDERABLES Final Resul t [facility] [address] [place] [address], documented in this encounter Visit Diagnoses Diagnosis Anemia, unspecified Chronic diastolic (congestive) heart failure (CMS/HCC) Other pericardial effusion (noninflammatory) End stage renal disease (CMS/HCC) End stage renal disease documented in this encounter Additional Health Concerns Infection Onset Date Last Indicated Resolved Time Respiratory Rule-Out 03/25/2024 03/25/2024 025 8:14 PM EST documented as of this encounter Care Teams Front Line Supervisor Relationship Specialty Start Date End Date Cass Turcios MD [address] [facility] [address] [place] [address] PCP - General Geriatric Medicine 04/02/24 documented as of this encounter
--- OUTSIDE RECORDS SUMMARY | 2024-04-30 17:52 | XMS_ITS | Encounter Summary ---
Author Organization [facility], Address [address] [place] [address] Phone Care Team Providers Care Manager Drug Name Role Phone Jade Lewis MD Primary Care Provider + [phone] Encounter Details Date Type Department Care Team (Late st Contact Info) Description 04/19/2024 Treatment [facility], [address] [place] [phone] Arely Hernández, FASHION JOURNALIST [address] [place] [address] Social History Tobacco Use Types Packs/Day Years [...] Dialysis Note - Arely Hernández APRN - 04/19/2024 12:00 AM EST Patient: BEAU MARIE, 1955, 68y, M Dialysis Location: [facility] [place] Attending Hospital Food Service Worker: Car Mcdonald Service Date: 04/19/2024 Service Provider: Arely Hernández NP I met face to face with the patient today. 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 LAST HOSPITALIZATION Admission Date 03/25/24 DIALYSIS PRESCRIPTION IHD 3x Week Start date: 04/05/24 Dialyzer: 180NRe Optiflux BFR: 450 DFR: Manual 800 Potassium: 2.0 Sodium: 138 EDW: 69.5 Duration: 3:30 Calcium: 2.50 Bicarb: 38 Rx updated on: 04/05/2024 TREATMENT ASSESSMENT BP Sit Pre 04/05/2024: 154/89 04/03/2024: 176/90 04/01/2024: 207/96 BP Sit Post 04/05/2024: 183/99 04/03/2024: 184/100 04/01/2024: 169/85 Tx Duration 04/05/2024: 3:32 04/03/2024: 3:17 04/01/2024: 3:31 Missed Treatments 0 - last 30 days 2 - last 60 days 03/05 - recent FLUID ASSESSMENT EDW (kg) 04/05/2024: 72.5 04/03/2024: 72.5 04/01/2024: 72.5 Weight Pre (kg) 04/05/2024: 72.5 04/03/2024: 71.8 04/01/2024: 74.3 Weight Post (kg) 04/05/2024: 69.9 04/03/2024: 71.6 04/01/2024: 71.4 PWV (kg) 04/05/2024: -2.6 04/03/2024: -0.9 04/01/2024: -1.1 UF Rate (mL/kg/hr) 04/05/2024: 10.5 04/03/2024: 0.9 04/01/2024: 11.5 ADEQUACY ASSESSMENT spKt/V, URR 03/13/2024: 1.18, 65.0 03/08/2024: 0.96, 57.0 02/12/2024: 1.32, 67.0 ACCESS ASSESSMENT Access Type: CVCatheter Access SubType: Tunneled Access Status: Active (In Use) - 08/09/2023 Access Location: Neck Placed: 08/08/2023 ANEMIA ASSESSMENT HGB 04/03/2024: 9.5 03/29/2024: 10.4 03/13/2024: 10.7 Ferritin 03/08/2024: 1289.0 02/21/2024: 800.0 02/12/2024: 907.0 Mircera, IVP 03/13/2024: 60 02/27/2024: 60 Iron Sucrose (Venofer) (mg) 03/18/2024: 100 03/15/2024: 100 03/13/2024: 100 BMM ASSESSMENT PTH, Intact 03/08/2024: 826.0 02/12/2024: 705.0 01/10/2024: 906.0 Calcium, Phosphorus 03/08/2024: 9.0, 5.9 02/12/2024: 8.1, 8.4 01/10/2024: 8.5, 8.5 Vitamin D (Calcitriol) Oral (mcg) 04/05/2024: 1.50 04/03/2024: 1.50 04/01/2024: 1.50 Cinacalcet (Sensipar) (mg) 04/05/2024: 60 04/03/2024: 60 04/01/2024: 60 NUTRITION ASSESSMENT Potassium, Albumin 03/08/2024: 5.1, 3.7 02/12/2024: 5.5, 3.8 01/10/2024: 4.1, 3.9 eNPCR 03/13/2024: 1.02 01/15/2024: 0.86 01/10/2024: 0.84 DIAGNOSIS Chief Complaint: N18.6 End stage renal disease Comments: Patient seen and examined. VSS with no complaints to offer. S1, S2, RRR. LS CTA bilaterally. Access patent. Patient is stable. Patient data updated 04/19/2024 at 8:33 AM Signed By: Arely Hernández, SLEEPING CAR CONDUCTOR on 04/19/2024 8:34:13 AM documented in this encounter Plan of Treatment Not on file documented as of this encounter Visit Diagnoses Not on filedocumented in this encounter Care Teams Manager Drug Relationship Specialty Start Date End Date Jade Lewis MD [address] [place] [address] PCP - General Internal Medicine 04/25/22 documented as of this encounter
--- OUTSIDE RECORDS SUMMARY | 2024-04-30 17:53 | XMS_ITS | Encounter Summary ---
Author Organization [facility], Address [address] [place] [address] Phone Care Team Providers Care Salvage Mend Worker Name Role Phone Jade Lewis MD Primary Care Provider + [phone] Reason for Visit * Reason Comments Med Refill Encounter Details Date Type Department Care Team ([facility] st Contact Info) Description 11/27/2020 Refill [facility] [address] [place] [phone] Alejandro Santana MD [address] [place] [phone] Social History Tobacco Use Types Packs/Day Years [...] on filedocumented in this encounter Care Teams Salvage Mend Worker Relationship Specialty Start Date End Date Jade Lewis MD [address] [place] [address] PCP - General Internal Medicine 04/25/22 documented as of this encounter
--- OUTSIDE RECORDS SUMMARY | 2024-04-30 17:53 | XMS_ITS | Encounter Summary ---
Author Organization [facility] Address [address] [place] [address] Encounter Details Date Type Department Care Team Description 2024-04-08 Telephone [facility] [address] [place] [address] Karmen Verdugo Medication Reconciliation was successfully completed by the [facility]. ASSESSMENT No Information TREATMENT PLAN No Information
--- OUTSIDE RECORDS SUMMARY | 2024-04-30 17:53 | XMS_ITS | Encounter Summary ---
Author Organization [facility], Address [address] [place] [address] Phone Care Team Providers Care Furniture Polisher Name Role Phone Jade Lewis MD Primary Care Provider + [phone] Reason for Visit * Reason Comments Med Refill Encounter Details Date Type Department Care Team (Late st Contact Info) Description 12/24/2022 Refill [facility] [address] [place] [phone] Car Mcdonald MD [facility] [place] [address] Social History Tobacco Use Types Packs/Day Years [...] on filedocumented in this encounter Care Teams Furniture Polisher Relationship Specialty Start Date End Date Jade Lewis MD [address] [place] [address] PCP - General Internal Medicine 04/25/22 documented as of this encounter
--- OUTSIDE RECORDS SUMMARY | 2024-04-30 17:53 | XMS_ITS | Clinical Summary ---
Author Organization [facility] Address [address] [facility] [address] [place] [address] Phone Care Team Providers Care Pipeline Inspector Name Role Phone Jade Lewis MD Primary Care Provider + [phone] Allergies Active Allergy Reactions Criticality Noted Date [...] FOR WHEEZING 1 Active ergocalciferol 1.25 MG (38645 UT) capsule Take 1 capsule (50,000 Units total) by mouth 1 (one) time per week 4 capsule 5 1 Active cetirizine (ZyrTEC) 10 MG tablet Take 10 mg by mouth 1 (one) time each day Active Fluticasone-Salm eterol 100-50 MCG/ACT aerosol powder [facility] [place] [place] - [id number] [place] [phone] 60.00 Each 5 30 INHALE 1 PUFF [...] mouth daily. Prescribed by Dr. Car Mcdonald (supervisor particleboard). 2 Active aspirin (ST ANITRA) 81 MG [...] asthma 03/31/2022 Overview (09/15/2022): 08/19/21 Eval at [facility]. Increase Advair to 100/50 F/u 6 months. 05/24/22 Eval at [facility], Dr uFnez. Recommends Trelegy once daily. Plan for sleep study to assess need for CPAP. 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 Permacath for dialysis removed and a new one replaced. Will get cefazolin x 4 weeks after dialysis. Lantus decreased to 30 units. Pt to continue on Eliquis for the next few weeks until his AV fistula is ready for utilization. Abdominal pain 03/19/2021 Bacteremia 03/19/2021 Venous thrombosis 01/04/2021 Overview (01/26/2021): 12/13/20-12/19/20 Admitted to [facility] for non-occulsive thrombosis in R internal jugular vein. Acute embolism and thrombosis of left internal j ugular vein 12/21/2020 End stage renal failure on dialysis 11/19/2020 Overview (10/05/2021): [facility] Hypocalcemia 11/13/2020 Angina pectoris 11/09/2020 Coagulation defect 11/09/2020 Headache 11/09/2020 Type 2 diabetes mellitus with diabetic nephropat hy 11/09/2020 Edema 09/28/2020 Iron deficiency anemia 12/24/2019 Chronic kidney disease stage 4 02/19/2019 Anemia in chronic kidney disease 02/19/2019 History of colonoscopy 03/30/2016 Overview (01/26/2021): Approximately 2010 in [place] per Pt 11/24/20 Eval at [facility], recommend colonoscopy. Resolved Problems Problem [...] diabetes mellitus 06/12/2015 Overview (01/26/2021): Followed by [facility]. Last visit 06/23/15, HbA1c = 11.1%. Has diabetic nephropathy, retinopathy, and peripheral neuropathy. Switched to Novolin 70/30. Taking 23 units TID with meals, may titrate up/down depending on BG readings over the next few days. They are trying to submit PA for Lyrica. 04/27/16 F/u with Estefani Kaur DO at [facility]. Titrate Novolog 70/30 to 22 units with breakfast, 30 units with dinner. If no improvement or if ongoing hypoglycemia will consider switchign to Levemir and Humalog; F/u 3 months 11/03/20 F/u [facility]. A1c > 12% Continue Lanuts 52 and Humalog 4-8 untsi with meals. Consider using NPH during peritoneal dialysis Encounters Date Type Department Care Team Description 2024 Orders Only [facility] [address] [address] Car Mcdonald MD 2024 Treatment [facility], [address] [place] [address] Arely Hernández APRN 04/24/2024 Orders Only [facility] [address] [address] Car Mcdonald MD 04/22/2024 Orders Only [facility] [address] [address] Car Mcdonald MD 04/19/2024 Orders Only [facility] [address] [address] Car Mcdonald MD 04/19/2024 Treatment [facility] [place] [address] Arely Hernández, TELESALES REPRESENTATIVE 04/05/2024 Treatment [facility] [place] [address] Arely Hernández, TELESALES REPRESENTATIVE 04/03/2024 Orders Only [facility] [address] [address] Car Mcdonald MD 04/01/2024 Treatment [facility] [place] [address] Malcolm Taylor MD 03/29/2024 Orders Only [facility] [address] [address] Car Mcdonald MD 03/15/2024 Treatment [facility] [address] [place] [address] Malcolm Taylor MD 03/13/2024 Orders Only [facility] [address] [address] Car Mcdonald MD 03/08/2024 Orders Only [facility] [address] [address] Car Mcdonald MD 03/01/2024 Treatment [facility] [address] [place] [address] Malcolm Taylor MD 03/01/2024 Orders Only [facility] [address] [address] Car Mcdonald MD 02/23/2024 Treatment [facility] [address] [place] [address] Arely Hernández, TELESALES REPRESENTATIVE 02/21/2024 Orders Only [facility] [address] [address] Car Mcdonald MD 02/19/2024 Treatment [facility] [address] [place] [address] Arely Hernández, TELESALES REPRESENTATIVE 02/14/2024 Orders Only [facility] [address] [address] Car Mcdonald MD 02/12/2024 Orders Only [facility] [address] [place] [address] Kevin, Izaiah Ordering 02/09/2024 Treatment [facility], [address] [place] [address] Arely Hernández, TELESALES REPRESENTATIVE 02/02/2024 Treatment [facility], [address] [place] [address] Malcolm Taylor MD 01/31/2024 Orders Only [facility] [address] [address] Car Mcdonald MD from Last 3 Months [...] at 65 Diabetes Mother Heart disease Mother NE Stroke Mother grandfather Hypertension Sibling 1 Kidney [...] Procedure Name Priority Date/Time Associated Diagnosis Comments [facility] LAB RESULTS Routine 2024 HD KINETICS Routine 2024 CHEMISTRY Routine 2024 POST CHEMISTRY Routine 2024 HEMATOLOGY Routine 04/24/2024 [facility] LAB RESULTS Routine 04/22/2024 HD KINETICS Routine 04/22/2024 CHEMISTRY Routine 04/22/2024 POST CHEMISTRY Routine 04/22/2024 CHEMISTRY Routine 04/19/2024 IMMUNO CHEMISTRY Routine 04/19/2024 CHEMISTRY Routine 04/19/2024 HEMATOLOGY Routine 04/19/2024 HEMATOLOGY Routine 04/03/2024 HEMATOLOGY Routine 03/29/2024 HD [...] LAB RESULTS Routine 02/12/2024 HEMATOLOGY Routine 01/31/2024 from Last 3 Months Results * (ABNORMAL) HD KINETICS (2024) Only the most recent of5 resultswithin the time period is included. % Urea Reduction 64(L) 65 - 80 % [facility] 2024 04/27/2024 12: 06 PM EST Narrative [facility] - 04/27/2024 Unless otherwise specified, test(s) performed at: [facility], [address] [place], [place] [id number] FOOT ROENTGENOLOGIST: Homero Garcia M.D. For any questions, please call customer service at FREQUENCY:OTHER Resulting Agency Comment Specimen source: Plasma Car Mcdonald MD LAB BLOOD ORDERABLES Final Re sult Performing Organization Address [facility] de Phone Number [facility] See order comments or contact performing lab Unknown, [place] * (ABNORMAL) POST CHEMISTRY (2024) Only the most recent of5 resultswithin the time period is included. BUN Post Dialysis 30(H) 6 - 19 mg/dL [facility] 2024 04/27/2024 12: 06 PM EST Narrative [facility] - 04/27/2024 Unless otherwise specified, test(s) performed at: [facility], [address] [place] [address] FOOT ROENTGENOLOGIST: Homero Garcia M.D. For any questions, please call customer service at FREQUENCY:OTHER Resulting Agency Comment Specimen source: Plasma Car Mcdonald MD LAB BLOOD ORDERABLES Final Re sult Performing Organization Address [facility] de Phone Number [facility] See order comments or contact performing lab Unknown, [place] * (ABNORMAL) [facility] Chemistry (2024) Only the most recent of10 resultswithin the time period is included. BUN 83(H) 6 - 19 mg/dL [facility] 2024 04/27/2024 11: 43 AM EST Narrative [facility] - 04/27/2024 Unless otherwise specified, test(s) performed at: [facility], [address] [place] [address] FOOT ROENTGENOLOGIST: Homero Garcia M.D. For any questions, please call customer service at FREQUENCY:OTHER Resulting Agency Comment Specimen source: Serum Car Mcdonald MD LAB BLOOD ORDERABLES Final Re sult Performing Organization Address [facility] de Phone Number [facility] See order comments or contact performing lab Unknown, [place] * [facility] Lab Results (2024) Only the most recent of4 resultswithin the time period is included. Pathologist [facility] spKt/V (Daugirdas II) 1.12 [facility] eKdrt/V 0.85 [facility] WSTDKT/V 2.1 [facility] nPCR_HD 1.21 [facility] spKt/V Gotch 1.14 [facility] eKt/V Gotch 0.85 [facility] e Center PCR 77.04 [facility] eKt/V ([place]) 0.88 [facility] eNPCR 1.05 [facility] 2024 2024 [facility] Ordering Provider LAB BLOOD ORDERABLES Final Result [facility] Contact Performing lab Unknown, [place] * (ABNORMAL) HEMATOLOGY (04/24/2024) Only the most recent of10 resultswithin the time period is included. [facility] Hemoglobin 9.9(L) 14.0 - 18.0 g/dL [facility] Hemoglobin x 3 29.7(L) 42.0 - 54.0 % [facility] 04/24/2024 04/25/2024 9:3 0 AM EST Narrative [facility] - 04/25/2024 Unless otherwise specified, test(s) performed at: [facility], [address] [place] [address] FOOT ROENTGENOLOGIST: Homero Garcia M.D. For any questions, please call customer service at FREQUENCY:OTHER Resulting Agency Comment Specimen source: Blood Car Mcdonald MD LAB BLOOD ORDERABLES Final Re sult [facility] See order comments or contact performing lab Unknown, [place] * IMMUNO CHEMISTRY (04/19/2024) Only the most recent of3 resultswithin the time period is included. Pathologist [facility] Hep B Surface Ag Negative Negative [facility] 04/19/2024 04/20/2024 12: 30 PM EST Narrative [facility] - 04/20/2024 Unless otherwise specified, test(s) performed at: [facility], [address] [place], [place] [id number] FOOT ROENTGENOLOGIST: Homero Garcia M.D. For any questions, please call customer service at FREQUENCY:MONTHLY Resulting Agency Comment Specimen source: Serum Car Mcdonald MD LAB BLOOD ORDERABLES Final Re sult Performing Organization Address [facility]/ZIP Co de Phone Number Table8 See order comments or contact performing lab Unknown, [place] * (ABNORMAL) SPECIAL CHEMISTRY (03/08/2024) Hemoglobin A1C 7.9(H) 4.8 - 5.9 % [employer] 03/08/2024 03/09/2024 10: 45 AM EST Narrative Resulting Agency Comment Specimen source: Blood Car Mcdonald MD LAB BLOOD BANK TEST ORDERABLE S Final Result Performing Organization Address [facility] de Phone Number Table8 See order comments or contact performing lab Unknown, [place] from Last 3 Months Insurance [place]ICAID [place] [employer] [place] [facility] MEDICARE [place]ICAID [place] Care Teams Pipeline Inspector Relationship Specialty Start Date End Date Jade Lewis MD [address] [place] [address] PCP - General Internal Medicine 04/25/22
--- OUTSIDE RECORDS SUMMARY | 2024-04-30 17:53 | XMS_ITS | Encounter Summary ---
Author Organization [facility], Address [address] [place] [address] Phone Care Team Providers Care Hand Molder Name Role Phone Jade Lewis MD Primary Care Provider + [phone] Reason for Visit * Reason Comments Med Refill Encounter Details Date Type Department Care Team ([facility] st Contact Info) Description 10/28/2020 Refill [facility] [address] [place] [phone] Alejandro Santana MD [address] [place] [phone] Social History Tobacco Use Types Packs/Day Years [...] on filedocumented in this encounter Care Teams Hand Molder Relationship Specialty Start Date End Date Jade Lewis MD [address] [place] [address] PCP - General Internal Medicine 04/25/22 documented as of this encounter
--- OUTSIDE RECORDS SUMMARY | 2024-04-30 17:53 | XMS_ITS | Encounter Summary ---
Author Organization [facility], Address [address] [place] [address] Phone Care Team Providers Care Rn Sane Name Role Phone Jade Lewis MD Primary Care Provider [phone] Reason for Visit * Reason Comments Med Refill Encounter Details Date Type Department Care Team (Late st Contact Info) Description 09/17/2022 Refill [facility] [address] [place] [phone] Malcolm Taylor MD [address] [place] [address] [place] [address] Social History Tobacco Use Types Packs/Day Years [...] on filedocumented in this encounter Care Teams Rn Sane Relationship Specialty Start Date End Date Jade Lewis MD [address] [place] [address] PCP - General Internal Medicine 04/25/22 documented as of this encounter
== END 2024-04-30 15:41 | disposition home or self-care (01) ==
PROVIDERS: PCP Nurse Practitioner; Visit Provider Surgery Vascular Surgery
DX: Z89.511 Acquired absence of right leg below knee (principal)
CPT/HCPCS: 99024

== ENCOUNTER → 2024-04-30 14:15 | Outpatient (BNVA) | payer MEDICARE, MEDICAID, SELFPAY | PROVIDERS: PCP Nurse Practitioner; Visit Provider Surgery Vascular Surgery | DX: Z47.81 Encounter for orthopedic aftercare following surgical amputation (principal); Z89.511 Acquired absence of right leg below knee | CPT/HCPCS: 99212 ==

== ENCOUNTER 2024-05-01 16:10 | Inpatient (IN) | payer MEDICARE, MEDICAID, SELFPAY ==
--- NOTE | 2024-05-01 | ECG_ITS ---
Test Reason : LARGE EFUSSION Blood Pressure : */* mmHG Vent. Rate : 79 BPM Atrial Rate : 79 BPM P-R Int : 146 ms QRS Dur : 88 ms QT Int : 404 ms P-R-T Axes : 38 11 68 degrees QTcB Int : 463 ms Normal sinus rhythm Minimal voltage criteria for LVH, may be normal variant ( [place] product ) ST & T wave abnormality, consider lateral ischemia Prolonged QT Abnormal ECG When compared with ECG of 07-Mar-2024 19:57, Vent. rate has decreased by [address] elevation now present in Lateral leads Referred By: Pastor De La Rosa Electronically Signed By: Tim Lan
--- NOTE | ~2024-05-01 | CT_ITS ---
CLINICAL HISTORY: infection CT chest without contrast Comparison: CR/SR - XR CHEST 1V - 04/16/24 11:[address]/[place]/SR - CT CHEST WO IV CON - 01/25/24 08:39 EST Findings: Cardiomegaly. Pericardial effusion measuring to 3.6 cm in thickness, new from prior CT. Aortic and coronary atherosclerosis. Visualized thyroid gland is unremarkable. Few small mediastinal lymph nodes. Right IJ dialysis catheter tip is in the distal SVC. Bilateral gynecomastia. Small right pleural effusion with thickened pleural rind and right lower and middle lobe consolidations, similar to 01/25/2024. Trace left pleural effusion. Please refer to the separate CT abdomen and pelvis report for abdominal findings. Similar well-defined lytic lesion in the right glenoid and sclerotic lesion in the inferior T11 vertebral body. IMPRESSION: 1. Large pericardial effusion measuring 3.6 cm in thickness, new from prior CT. 2. Right pleural effusion with pleural thickening and right lower and middle lobe consolidations, similar to prior. This document has been electronically signed by: Tavon Pena MD on 05/01/2024 20:02:08
--- NOTE | ~2024-05-01 | XR_ITS ---
CLINICAL HISTORY: RLL Blunting, 1 view chest x-ray. Comparison: CT/SR - CT CHEST WO IV CON - 05/01/24 19:12 EST CR/SR - XR CHEST 1V - 04/16/24 11:16 EST Findings: Stable mild pleural-parenchymal disease right lower lobe. No pneumothorax. No mediastinal shift or tracheal deviation. Cardiomegaly No passive venous congestion. Osseous structures intact. Tubes and catheters: Right Dennis catheter tip atriocaval junction. Impression: 1. Stable mild pleural-parenchymal disease right lower lobe. 2. Cardiomegaly without evidence of heart failure. 3. Well-positioned supportive device. This document has been electronically signed by: Mor Cantrell MD on 05/11/2024 11:07:16
--- NOTE | ~2024-05-01 | CT_ITS ---
CLINICAL HISTORY: infection, he is ESRD, is anuric CT abdomen and pelvis without contrast Comparison: There is a report for a CT ABDOMEN PELVIS WO IV CON - 09/30/23 11:04 EDT , images are not available for comparison Findings: Small right pleural effusion with pleural rind. Right middle and lower lobe consolidation. Trace left pleural effusion. Cardiomegaly. Large pericardial effusion. Nodular contour of the liver. Gallbladder, pancreas, spleen, and adrenal glands are within normal limits. No hydronephrosis. No bowel obstruction, pneumatosis or pneumoperitoneum. Normal appendix. Stool throughout the colon. Diffuse vascular atherosclerosis. Aortic atherosclerosis. No aneurysm. 1.3 cm right iliac lymph node. Additional subcentimeter periaortic and aortocaval lymph nodes. Prostatomegaly. Diffuse urinary bladder wall thickening. The bones are intact. IMPRESSION: Urinary bladder wall thickening, correlate for cystitis. 1.3 cm right iliac lymph node. Nodular contour of the liver concerning for cirrhosis. Small right pleural effusion with pleural rind. Right middle and lower lobe consolidation. Trace left pleural effusion. Cardiomegaly. Large pericardial effusion. This document has been electronically signed by: Tavon Pena MD on 05/01/2024 20:27:02
[2024-05-01 16:16] VITALS: BP 162/121; PULSE 85; RESP 18; TEMP 36.8; O2SAT 99; BMI 29.1
--- NOTE | 2024-05-01 16:18 | ED.GENADULT ---
HPI - General Adult General Chief complaint: Skin/Abscess/Foreign Body Stated complaint: Rash Time Seen by Provider: 05/01/24 16:58 Source: patient and family Limitations: language barrier History of Present Illness ED Provider: Rena Martinez PA-C HPI narrative: 69-year-old male with a history of end-stage renal disease, diabetes, hypertension, hyperlipidemia, mixed heart failure, status post right BKA 04/11 Dr. Cannon, presents with a rash x4 days. Patient saw his vascular surgeon yesterday at his postop visit, he had the rash over a portion of his left lower extremity, foot, right hand and left elbow. Overnight the rash progressed, he now has lesions over his torso and back. The rash is purple/red in color, subtly raised in some areas. The rash is not pruritic nor painful, no fevers. Related Data Home Medications ?Medication ?Instructions ?Recorded ?Confirmed albuterol sulfate 90 mcg/actuation 2 puff inhalation Q4H PRN 04/19/22 05/01/24 aerosol inhaler Shortness Of Breath allopurinol 100 mg tablet 100 mg PO MOWEFR@1600 04/19/22 05/01/24 atorvastatin 40 mg tablet 40 mg PO SUTUTHSA@0900 04/19/22 05/01/24 doxazosin 4 mg tablet 4 mg PO BEDTIME 04/19/22 05/01/24 furosemide 80 mg tablet 80 mg PO SUTUTHSA@0900 04/19/22 05/01/24 ipratropium 0.5 mg-albuterol 3 mg 3 ml inhalation QID PRN Wheezing 04/19/22 05/01/24 (2.5 mg base)/3 mL nebulization soln omeprazole 20 mg capsule,delayed 20 mg PO DAILY@0630 04/19/22 05/01/24 release insulin lispro 100 unit/mL 1 sliding scale dose subcut TIDAC 04/10/23 05/01/24 subcutaneous pen aspirin 81 mg tablet,delayed 81 mg PO SUTUTHSA@06/20/23 05/01/24 release pregabalin 75 mg capsule 75 mg PO SUTUTHSA@,,06/20/23 05/01/24 hydralazine 25 mg tablet 25 mg PO SUTUTHSA@,,01/24/24 05/01/24 sucroferric oxyhydroxide 500 mg 500 mg PO TID 01/24/24 05/01/24 chewable tablet (Velphoro) acetaminophen 325 mg tablet 650 mg PO Q4H PRN PAIN/FEVER 04/05/24 05/01/24 aspirin 81 mg tablet,delayed 81 mg PO MOWEFR@1600 04/05/24 05/01/24 release atorvastatin 40 mg tablet 40 mg PO MOWEFR@1600 04/05/24 05/01/24 bisacodyl 10 mg rectal suppository 10 mg MS DAILY PRN Constipation 04/05/24 05/01/24 (Dulcolax (bisacodyl)) carvedilol 6.25 mg tablet 6.25 mg PO BID 04/05/24 05/01/24 fluticasone fur. 100 mcg-umeclid 1 inh inhalation DAILY 04/05/24 05/01/24 62.5 mcg-vilant 25 mcg inhalat.powder (Trelegy Ellipta) furosemide 80 mg tablet 80 mg PO MOWEFR@1600 04/05/24 05/01/24 hydralazine 25 mg tablet 25 mg PO MOWEFR@1600 04/05/24 05/01/24 losartan 25 mg tablet 25 mg PO MOWEFR@1600 04/05/24 05/01/24 losartan 25 mg tablet 25 mg PO SUTUTHSA@0900 04/05/24 05/01/24 oxycodone 5 mg tablet 5 mg PO Q6H PRN pain 04/05/24 05/01/24 pregabalin 75 mg capsule 75 mg PO MOWEFR@159904/05/24 05/01/24 sennosides 8.6 mg tablet (senna) 8.6 mg PO DAILY PRN Constipation 04/05/24 05/01/24 Previous Rx's ?Medication ?Instructions ?Recorded PleurX catheter drainage kits #10 ea 10/17/23 fluticasone propionate 50 1 spray intranasal BID #16 grams 12/07/23 mcg/actuation nasal spray,suspension levetiracetam 500 mg tablet 500 mg PO BID #180 tabs 04/17/24 Allergies Allergy/AdvReac Type Severity Reaction Status Date / Time Iodinated Contrast Media Allergy Severe Facial Verified 05/01/24 16:21 [Contrast Dye] Swelling Review of Systems Review of Systems: Yes all other systems are reviewed and are negative Constitutional: Constitutional: Denies fatigue, Denies fever(s) and Denies malaise Cardiovascular: Cardiovascular: Denies chest pain and Denies dyspnea Respiratory: Respiratory: Denies cough, Denies dyspnea and Denies wheezing Gastrointestinal: Gastrointestinal: Denies abdominal pain, Denies nausea and Denies vomiting Musculoskeletal: Musculoskeletal: Denies arthralgias and Denies joint swelling Integumentary/Breasts: Skin/Breast: Denies pruritus, Reports new lesions and Reports rash Endocrine: Endocrine: Denies fatigue Allergic/Immunologic: Allergic/Immunologic: Denies wheezing [facility] Past Medical History Attestation statement: The following information was validated with the patient. Medical History (Updated 05/01/24 @ 20:30 by KYLAH Palacios) Right sided weakness ESRD needing dialysis Dehiscence of wound Peripheral arterial disease Cellulitis of right foot Hypertension Dry gangrene HFrEF (heart failure with reduced ejection fraction) ESRD (end stage renal disease) Chronic combined systolic and diastolic CHF (congestive heart failure) Chronic pericardial effusion Arthritis Asthma Restless leg syndrome Acute on chronic systolic and diastolic heart failure, NYHA class 3 Anemia ESRD (end stage renal disease) Occlusive thrombus Pulmonary edema ROBERT (obstructive sleep apnea) Type 2 diabetes mellitus Hyperlipidemia Hypertension A-V fistula ESRD on dialysis Falling Surgical History (Updated 04/30/24 @ 15:34 by Amarilis Mcdaniels PA-C) Hx of right BKA Status post transmetatarsal amputation of right foot History of transmetatarsal amputation of foot History of surgery H/O colonoscopy Recurrent pleural effusion Pleural effusion on right (07/13/23) Family History Family History Father No problems noted. Mother No problems noted. Social History Social History Household Members: Children Household Members Other:: son Housing: Apartment Are you a primary rehab care assistant to a significant other at home: No Do you presently have visiting nurse or other home services: No Alcohol intake: never Comment: counts correct Patient Tobacco Use Status: Former Tobacco user Tobacco use type: Cigarette Second Hand Smoke Exposure: No Advance Directives: Yes Advance Directives on File: Yes Advance Directives Date on File: 04/13/23 service: No Physical Exam ED Vital Signs: Vital Signs - 24 hr 05/01/24 16:16 05/01/24 19:48 Temperature 98.3 F 98.7 F Pulse Rate 85 77 Respiratory Rate 18 16 Blood Pressure 162/121 H 142/64 H Pulse Oximetry 99 99 Oxygen Delivery Method Nasal Cannula Room Air BMI result Body Mass Index 29.1 Const Other: Alert well-appearing Orientation/consciousness: patient oriented x3 Resp Effort & Inspection: normal respiratory effort Cardio Other: Normal peripheral perfusion Skin Other: The rash is red/purple in color, some of the lesions are circular, there are regions where the lesions coalesce, there are areas where the rash is raised, the rash does not olga, it spares the palms, soles and the mouth Neuro General: patient oriented x3, no focal motor deficits and CN's II-XI intact bilaterally Psych Other: Cooperative Course Course Course Narrative: RME, this is a rapid medical exam performed by Anup León please refer to primary provider for complete H&P- 69 year old male with history of diabetes, ESRD on dialysis presents for evaluation of a rash throughout his body. He recently has a right BKA due to infection. He saw Dr Cannon yesterday in follow up. He has purpura throughout his body, worse on his left arm and back with a spot on his right 3rd finger. Plan for labs including blood cultures Consultations Consultation #1: paging Dr. Cannon...... It does not feel it is a vasculitic Time: 18:07 Consultation #2: paged Dr. Pham from [place]...... She is concerned that the patient may be passing septic emboli from the aorta, she recommends CT abdomen and pelvis: To obtain blood cultures and start vancomycin and cefazolin... Admitting the patient Time: 18:41 Consultation #3: Patient Cardiology, Dr. Lan in regard to new pericardial effusion..... The patient should be made NPO, he will have an echo tomorrow, he recommends adding on inflammatory markers which we have already obtained, and a TSH Time: 20:23 Medications Administered Generic Name Dose Route Start Last Admin Trade Name Freq PRN Reason Stop Dose Admin Vancomycin HCl 2,000 mg in 500 mls @ 250 mls/hr 05/01/24 19:05 05/01/24 19:24 Vancomycin/Ns IV 05/01/24 21:04 250 mls/hr ONCE ONE Administration Discontinued Medications Generic Name Dose Route Start Last Admin Trade Name Freq PRN Reason Stop Dose Admin Cefazolin Sodium 2 gm 05/01/24 18:55 05/01/24 19:23 Cefazolin Sodium 1 Gm Vial IVPUSH 05/01/24 18:56 2 gm ONCE ONE Administration Vancomycin HCl 1,500 mg/ 500 mls @ 333.333 mls/hr 05/01/24 18:55 05/01/24 19:22 Sodium Chloride IV 05/01/24 20:24 Not Given ONCE ONE Medical Decision Making Medical Decision Making MDM Narrative: 69-year-old male with a history of end-stage renal disease, diabetes, hypertension, hyperlipidemia, mixed heart failure, status post right BKA 04/11 Dr. Cannon, presents with a rash x4 days. Patient saw his vascular surgeon yesterday at his postop visit, he had the rash over a portion of his left lower extremity, foot, right hand and left elbow. Overnight the rash progressed, he now has lesions over his torso and back. The rash is purple/red in color, subtly raised in some areas. The rash is not pruritic nor painful, no fevers. Problem: Recent surgery, end-stage renal, diabetes History: Per patient and his family I have considered the following differential diagnoses: Vasculitis, [place], urticaria, contact dermatitis , ITP, DIC Plan: I have reached out to vascular, they do not feel the rash is consistent with vasculitis. I have reached out to Infectious Disease, they feel this could be septic emboli. They suggested obtaining blood cultures which we have already done, obtaining imaging of the abdomen, starting the patient on vancomycin and cefazolin, with the admission. Screening labs were already obtained from triage. Overall his labs were normal. He is afebrile. I have independently reviewed the following tests: Labs: No leukocytosis, stable anemia, normal platelet count, no liver dysfunction, no electrolyte abnormality CT chest: MPRESSION: 1. Large pericardial effusion measuring 3.6 cm in thickness, new from prior CT. 2. Right pleural effusion with pleural thickening and right lower and middle lobe consolidations, similar to prior. This document has been electronically signed by: Tavon Pena MD on 05/01/2024 20:02:08 we will be patient Cardiology in regard to the new effusion, this is likely related to emboli CT abdomen and pelvis: IMPRESSION: Urinary bladder wall thickening, correlate for cystitis. 1.3 cm right iliac lymph node. Nodular contour of the liver concerning for cirrhosis. Small right pleural effusion with pleural rind. Right middle and lower lobe consolidation. Trace left pleural effusion. Cardiomegaly. Large pericardial effusion. This document has been electronically signed by: Tavon Pena MD on 05/01/2024 20:27:02 Lab Data 05/01/24 16:51 05/01/24 16:51 Labs: Lab Results 05/01/24 Range/Units 16:51 WBC 8.7 (4.8-10.8) X10*3/uL RBC 3.73 L (4.60-5.80) X10*6/uL Hgb 9.2 L (14.0-18.0) g/dl Hct 28.5 L (42.0-52.0) % MCV 76.4 L (80.0-98.0) fL MCH 24.7 L (27.0-33.0) pg MCHC 32.3 (31.0-36.0) g/dl RDW 18.1 H (11.0-16.0) % Plt Count 355 (160-400) X10*3/uL MPV 11.8 (9.4-12.4) fL Immature Gran % (Auto) 1.0 H (0.0-0.4) % Neut % (Auto) 84.5 H (45-73) % Lymph % (Auto) 8.1 L (20-40) % [place] % (Auto) 5.3 (2-11) % Eos % (Auto) 0.9 (0-4) % Baso % (Auto) 0.2 (0-2) % Lymph # (Auto) 0.7 L (1.2-4.9) X10*3/uL [place] # (Auto) 0.5 (0.1-1.2) X10*3/uL Eos # (Auto) 0.1 (0.0-0.4) X10*3/uL Baso # (Auto) 0.0 (0.0-0.2) X10*3/uL Abs Immat Gran (auto) 0.09 H (0.00-0.03) X10*3/uL Absolute Neuts (auto) 7.4 (2.0-8.3) x10*3/uL Absolute Nucleated RBC 0.000 (0.0-0.012) X10*3/uL Nucleated RBC % (auto) 0.0 (0.0-0.2) /100WBC ESR 92 H (0-15) MM/HR PT 15.2 H (10.9-12.4) SEC INR 1.3 H (0.9-1.1) Sodium 136 (135-145) mmol/L Potassium 4.3 (3.3-5.1) mmol/L Chloride 96 (96-108) mmol/L Carbon Dioxide 26 (22-29) mmol/L Anion Gap 18 (12-20) BUN 59 H (9-16) mg/dL Creatinine 5.66 H* (0.5-1.4) mg/dL Estim Creat Clear Calc 12.1 Estimated GFR 10 Random Glucose 424 H* (60-115) mg/dL Lactic Acid 1.2 (0.5-2.0) mmol/L Calcium 8.5 (8.4-10.2) mg/dL Total Bilirubin 0.4 (0.0-1.0) mg/dL AST 29 (5-37) U/L ALT 19 (0-40) U/L Alkaline Phosphatase 232 H (39-117) U/L C-Reactive Protein 19.06 H (< or = 0.50) mg/dL Total Protein 7.7 (6.5-8.0) g/dL Albumin 3.1 L (3.5-5.0) g/dL Lipase 55 (8-78) U/L Critical Care Time Critical Care Time Critical Care Time: Yes Total Critical Care Time: 30 Attestation: Santiago Martinez have personally performed 30 minutes of critical care time not including procedure Discharge Plan Discharge Clinical Impression: Rash, Acute pericardial effusion Patient Disposition: Admitted As Inpatient Prescriptions: No Action (DME) PleurX catheter drainage kits 1000cc kits See Rx Instructions .Route .MEDSUPPLY Qty: 10 6RF Rx Instructions: As directed atorvastatin 40 mg tablet 40 mg PO SUTUTHSA@0900 ipratropium-albuterol 0.5 mg-3 mg(2.5 mg base)/3 mL solution for nebulization 3 ml INHALATION QID PRN (Reason: Wheezing) allopurinol 100 mg tablet 100 mg PO MOWEFR@1600 Rx Instructions: GIVE AFTER DIALYSIS furosemide 80 mg tablet 80 mg PO SUTUTHSA@0900 omeprazole 20 mg capsule,delayed release(DR/EC) 20 mg PO DAILY@0630 doxazosin 4 mg tablet 4 mg PO BEDTIME albuterol sulfate 90 mcg/actuation HFA aerosol inhaler 2 puff INHALATION Q4H PRN (Reason: Shortness Of Breath) fluticasone propionate 50 mcg/actuation [place],Suspension 1 spray intranasal BID Qty: 16 0RF Velphoro 500 mg tablet,chewable 500 mg PO TID hydralazine 25 mg tablet 25 mg PO SUTUTHSA@,, insulin lispro 100 unit/mL insulin pen 1 sliding scale dose subcut TIDAC Rx Instructions: 200-249 - 2 UNITS 250-299 4 UNITS, 300-349 6 UNITS 350-439 8 UNITS 400+ CALL aspirin 81 mg tablet,delayed release (DR/EC) 81 mg PO SUTUTHSA@09 pregabalin 75 mg capsule 75 mg PO SUTUTHSA@,, pantoprazole 40 mg tablet,delayed release (DR/EC) 40 mg PO DAILY@0630 oxycodone 5 mg tablet 5 mg PO Q6H PRN (Reason: pain) atorvastatin 40 mg tablet 40 mg PO MOWEFR@1600 sennosides [senna] 8.6 mg Tablet 8.6 mg PO DAILY PRN (Reason: Constipation) acetaminophen 325 mg Tablet 650 mg PO Q4H PRN (Reason: PAIN/FEVER) hydralazine 25 mg Tablet 25 mg PO MOWEFR@1600 aspirin 81 mg Tablet,Delayed Release (Dr/Ec) 81 mg PO MOWEFR@1600 furosemide 80 mg tablet 80 mg PO MOWEFR@1600 bisacodyl [Dulcolax (bisacodyl)] 10 mg Suppository 10 mg MS DAILY PRN (Reason: Constipation) losartan 25 mg tablet 25 mg PO MOWEFR@1600 pregabalin 75 mg capsule 75 mg PO MOWEFR@1600 Trelegy Ellipta 100-62.5-25 mcg Blister With Device 1 inh INHALATION DAILY carvedilol 6.25 mg tablet 6.25 mg PO BID Protocol: Hold for SBP/HR < HOLD for SBP < : 90 HOLD for HR < : 60 losartan 25 mg tablet 25 mg PO SUTUTHSA@0900 Protocol: Hold for SBP< HOLD for SBP < : 90 levetiracetam 500 mg Tablet 500 mg PO BID Qty: 180 0RF Print Language: Panamanian
[2024-05-01 16:59] LABS: MANUAL DIFF FLAG NO
[2024-05-01 17:05] LABS: Basophils Percent Auto 0.2 % (0-2); Eosinophils Absolute Auto 0.1 X10*3/uL (0.0-0.4); Eosinophils Percent Auto 0.9 % (0-4); Hematocrit 28.5 % (42.0-52.0); Hemoglobin 9.2 g/dl (14.0-18.0); Imm Gran Abs Auto 0.09 X10*3/uL (0.00-0.03); Lymphocytes Absolute Auto 0.7 X10*3/uL (1.2-4.9); Lymphocytes Percent Auto 8.1 % (20-40); Mean Corpuscular HGB Conc 32.3 g/dl (31.0-36.0); Mean Corpuscular Hemoglobin 24.7 pg (27.0-33.0); Mean Corpuscular Volume 76.4 fL (80.0-98.0); Mean Platelet Volume 11.8 fL (9.4-12.4); Monocytes Absolute Auto 0.5 X10*3/uL (0.1-1.2); Monocytes Percent Auto 5.3 % (2-11); Neutrophils Absolute Auto 7.4 x10*3/uL (2.0-8.3); Neutrophils Percent Auto 84.5 % (45-73); Platelet Count 355 X10*3/uL (160-400); Red Blood Count 3.73 X10*6/uL (4.60-5.80); Red Cell Distribution Width 18.1 % (11.0-16.0); White Blood Count 8.7 X10*3/uL (4.8-10.8)
[2024-05-01 17:07] LABS: INTERNATIONAL NORM RATIO 1.3 (0.9-1.1); Prothrombin Time 15.2 SEC (10.9-12.4)
[2024-05-01 17:18] LABS: Lactic Acid 1.2 mmol/L (0.5-2.0)
[2024-05-01 17:21] LABS: Alanine Aminotransferase 19 U/L (0-40); Albumin Level 3.1 g/dL (3.5-5.0); Alkaline Phosphatase 232 U/L (39-117); Anion Gap 18 (12-20); Aspartate Amino Transferase 29 U/L (5-37); Bilirubin Total 0.4 mg/dL (0.0-1.0); Blood Urea Nitrogen 59 mg/dL (9-16); C Reactive Protein 19.06 mg/dL (< or = 0.50); Calcium 8.5 mg/dL (8.4-10.2); Carbon Dioxide 26 mmol/L (22-29); Chloride 96 mmol/L (96-108); Creatinine Clr Calc Pharmacy 12.1; Estimated Glomerular Filt Rate 10; Glucose Random 424 mg/dL (60-115); Lipase 55 U/L (8-78); Potassium 4.3 mmol/L (3.3-5.1); Sodium 136 mmol/L (135-145); Total Protein 7.7 g/dL (6.5-8.0)
[2024-05-01 17:48] LABS: Erythrocyte Sedimentation Rate 92 MM/HR (0-15)
[2024-05-01] MEDS: ceFAZolin Sodium 1 GM VIAL 2 GM IVPUSH (19:23)
[2024-05-01] MEDS: vancomycin/NS 2,000 MG/500 ML PLAST..BAG 250 MG IV (19:24)
[2024-05-01 19:48] VITALS: BP 142/64; PULSE 77; RESP 16; TEMP 37.1; O2SAT 99
--- OUTSIDE RECORDS SUMMARY | 2024-05-01 19:49 | XMS_ITS | Encounter Summary ---
Author Organization [facility] Address [address] [place] [address] Care Team Providers Care Hydraulic Press Tender Name Role Phone Lainey Cody ESTUARDO Primary Care Provider [phone] Reason for Visit * Reason Comments Correspondence Encounter Details Date Type Department Care Team ([facility] Contact Info) Description 04/18/2024 Interim Notes [facility] [address] [place] [phone] Jaki VelizLUBEC, [place] [address] [place] [address] Social History Tobacco Use Types Packs/Day Years [...] for oxycodone [facility] [phone]. Confirmation and script sent down for scanning documented in this encounter Plan of Treatment Upcoming Encounters Date Type Department Care Team (Late st Contact Info) Description 05/02/2024 2:40 PM EST Office Visit [facility] [address] [place] [address] Ninfa Edmonds FNP [address] [place] [phone] Gilda Bustos [address] [place] [address] documented as of this encounter Visit Diagnoses Not on filedocumented in this encounter Additional Health Concerns Assessment Noted Time PHQ-9 Depression Total Score: 0 03/14/19 25 9:51 AM PST documented as of this encounter Care Teams Hydraulic Press Tender Relationship Specialty Start Date End Date Lainey Cody FNP [address] [place] [phone] PCP - General Internal Medicine 12/11/23 documented as of this encounter
--- OUTSIDE RECORDS SUMMARY | 2024-05-01 19:50 | XMS_ITS | Encounter Summary ---
Author Organization [facility], Address [address] [place] [address] Phone Care Team Providers Care Software Development Specialist Name Role Phone Jade Lewis MD Primary Care Provider [phone] Encounter Details Date Type Department Care Team (Late st Contact Info) Description 2024 Treatment [facility], [address] [place] [phone] Arely Hernández, [employer] [address] [place] [phone] Social History Tobacco Use Types Packs/Day Years [...] BEAU [place]IE, 1955, 69y, M Dialysis Location: [facility] Attending Water Technician: Car Mcdonald Service Date: 2024 Service Provider: [...] on filedocumented in this encounter Care Teams Software Development Specialist Relationship Specialty Start Date End Date Jade Lewis MD [address] [place] [address] PCP - General Internal Medicine 04/25/22 documented as of this encounter
--- OUTSIDE RECORDS SUMMARY | 2024-05-01 19:50 | XMS_ITS | Clinical Summary ---
Author Organization [facility] Address [address] [place] [address] Phone Care Team Providers Care Fur Finisher Tailor Name Role Phone Cass Turcios MD Primary Care Provider [phone] Allergies No known active allergies Medications Ventolin [...] Care Team Description 04/02/2024 Lab Requisition [facility] - Main Lab [address] [facility] [place] [address] Cass Turcios MD End stage renal disease ([facility]) 03/25/2024 7:29 AM EST - 03/27/2024 6:55 PM EST Hospital Encounter [facility] Intermediate Care Unit [address] [place] [id number] Noman Conteh MD Bukalo, Nermina, MD Japaridze, Anna, MD Acute kidney injury superimposed on chronic kidney disease ([facility]) (Primary Dx); Hyperkalemia; Urinary tract infection without hematuria, site unspecified Discharge Disposition: Snf Facility 03/25/2024 Lab Requisition [facility] - Main Lab [address] [place] [address] Cass Turcios MD Anemia, unspecified; Chronic diastolic (congestive) heart failure ([facility]); Other pericardial effusion (noninflammatory); End stage renal disease ([facility]) from Last 3 Months Surgical History Surgery Date Site/Laterality Comments TOE AMPUTATION IR DIALYSIS CATH INSERT VASCULAR ACCESS Medical History Medical History Date Comments ESRD (end stage renal disease) on dialysis ([facility]/ [facility]) MWF Hypertension Hyperlipidemia Gouty arthritis Diabetes mellitus ([facility]) GERD (gastroesophageal reflux disease) COPD (chronic obstructive pulmonary disease) ([facility]) Social History Tobacco Use Types Packs/Day [...] for your loved ones. For example, child and family services worker or elderly care for an older adult? [...] included. WBC 26.2(H) 4.8 - 10.8 K/[facility] LAB HEMETOLOGY METHOD 04/02/2024 9:47 AM EST [facility] LAB RBC 4.10(L) 4.50 - 5.50 M/mcL LAB HEMETOLOGY METHOD 04/02/2024 9:[address] [facility] Hemoglobin 9.4(L) 13.5 - 17.5 g/dL LAB HEMETOLOGY METHOD 04/02/2024 9:[address] [facility] Hematocrit 31.2(L) 42.0 - 54.0 % LAB HEMETOLOGY METHOD 04/02/2024 9:[address] [facility] MCV 76.1(L) 79.0 - 98.0 FL LAB HEMETOLOGY METHOD 04/02/2024 9:[address] [facility] MCH 22.9(L) 27.0 - 32.0 pcg LAB HEMETOLOGY METHOD 04/02/2024 9:[address] [facility] MCHC 30.1(L) 32.0 - 37.0 g/dL LAB HEMETOLOGY METHOD 04/02/2024 9:[address] [facility] RDW 17.1(H) 11.0 - 15.0 % LAB HEMETOLOGY METHOD 04/02/2024 9:[address] [facility] Platelets 349 130 - 400 K/mcL LAB HEMETOLOGY METHOD 04/02/2024 9:[address] [facility] MPV 11.4(H) 7.0 - 11.0 FL LAB HEMETOLOGY METHOD 04/02/2024 9:[address] [facility] NRBC 0.0 <1.0 % LAB HEMETOLOGY METHOD 04/02/2024 9:[address] [facility] NRBC Absolute 0.00 <0.10 K/mcL LAB HEMETOLOGY METHOD 04/02/2024 9:[address] [facility] Blood Venous blood specimen / Unknown Venipuncture / Unknown 04/02/2024 5:24 AM EST 04/02/2024 8:48 AM EST us Cass Turcios MD LAB BLOOD ORDERABLES Final Resul t [facility] [address] [place] [address], [place] [phone] * (ABNORMAL) Basic metabolic panel (04/02/2024 5:24 AM EST) Only the most recent of5 resultswithin the time period is included. Sodium 135 133 - 145 mmol/L LAB CHEMISTRY METHOD 04/02/2024 10:[address] [facility] Potassium 5.6(H) 3.5 - 5.5 mmol/L LAB CHEMISTRY METHOD 04/02/2024 10:[address] [facility] Chloride 95(L) 96 - 110 mmol/L LAB CHEMISTRY METHOD 04/02/2024 10:[address] [facility] CO2 32 21 - 32 mmol/L LAB CHEMISTRY METHOD 04/02/2024 10:[address] [facility] Anion Gap 8 3 - 11 LAB CHEMISTRY METHOD 04/02/2024 10:[address] [facility] Glucose 32(LL) 70 - 100 mg/dL LAB CHEMISTRY METHOD 04/02/2024 10:[address] [facility] BUN 50(H) 5 - 25 mg/dL LAB CHEMISTRY METHOD 04/02/2024 10:[address] [facility] Creatinine 7.72(H) 0.70 - 1.30 mg/dL LAB CHEMISTRY METHOD 04/02/2024 10:[address] [facility] eGFR 7(L) >=60 mL/min/1. 73m2 LAB CHEMISTRY METHOD 04/02/2024 10:[address] [facility] Comment:Calculation based on the??Chronic Kidney Disease Epidemiology Collaboration (CKD-EPI) equation refit??without adjustment for race. BUN/Creatinine Ratio 6.5 LAB CHEMISTRY METHOD 04/02/2024 10:35 AM EST [facility] Calcium 8.3(L) 8.5 - 10.5 mg/dL LAB CHEMISTRY METHOD 04/02/2024 10:35 AM EST [facility] Blood Venous blood specimen / Unknown Venipuncture / Unknown 04/02/2024 5:24 AM EST 04/02/2024 8:48 AM EST Cass Turcios MD LAB BLOOD ORDERABLES Final Resul t Performing Organization Address City/[facility]/ZIP Co de Phone Number [facility] [address] [place] [address], [place] [phone] * (ABNORMAL) POCT Glucose, blood (03/27/2024 4:55 PM EST) Only the most recent of10 resultswithin the time period is included. Glucose POCT 276(H) 70 - 100 mg/dL 03/27/2024 4:56 PM EST [facility] Blood Capillary blood specimen / Unknown 03/27/2024 4:55 PM EST 03/27/2024 4:57 PM EST Marion Hernandez MD LAB POINT OF CARE TE ST DOCKED DEVICE UNSOLICITED RESULTS Final Result Performing Organization Address City/[facility]/ZIP Co de Phone Number [facility] [address] [place] [address], [place] [phone] * (ABNORMAL) CBC auto differential (03/27/2024 7:35 AM EST) Only the most recent of2 resultswithin the time period is included. WBC 6.4 4.8 - 10.8 K/[facility] LAB HEMETOLOGY METHOD 03/27/2024 9:44 AM EST [facility] RBC 4.20(L) 4.50 - 5.50 M/[facility] LAB HEMETOLOGY METHOD 03/27/2024 9:[address] [facility] Hemoglobin 9.7(L) 13.5 - 17.5 g/dL LAB HEMETOLOGY METHOD 03/27/2024 9:[address] [facility] Hematocrit 32.2(L) 42.0 - 54.0 % LAB HEMETOLOGY METHOD 03/27/2024 9:[address] [facility] MCV 76.3(L) 79.0 - 98.0 FL LAB HEMETOLOGY METHOD 03/27/2024 9:[address] [facility] MCH 23.0(L) 27.0 - 32.0 pcg LAB HEMETOLOGY METHOD 03/27/2024 9:[address] [facility] MCHC 30.1(L) 32.0 - 37.0 g/dL LAB HEMETOLOGY METHOD 03/27/2024 9:[address] [facility] RDW 17.0(H) 11.0 - 15.0 % LAB HEMETOLOGY METHOD 03/27/2024 9:[address] [facility] Platelets 160 130 - 400 K/mcL LAB HEMETOLOGY METHOD 03/27/2024 9:[address] [facility] MPV LAB HEMETOLOGY METHOD 03/27/2024 9:[address] [facility] Comment:Not Measured NRBC 0.0 <1.0 % LAB HEMETOLOGY METHOD 03/27/2024 9:[address] [facility] NRBC Absolute 0.00 <0.10 K/mcL LAB HEMETOLOGY METHOD 03/27/2024 9:[address] [facility] Neutrophils Relative 82.3 % LAB HEMETOLOGY METHOD 03/27/2024 9:[address] [facility] Lymphocytes Relative 6.4 % LAB HEMETOLOGY METHOD 03/27/2024 9:[address] [facility] Monocytes Relative 9.0 % LAB HEMETOLOGY METHOD 03/27/2024 9:[address] [facility] Eosinophils Relative 0.2 % LAB HEMETOLOGY METHOD 03/27/2024 9:[address] [facility] Basophils Relative 0.5 % LAB HEMETOLOGY METHOD 03/27/2024 9:[address] [facility] Immature Granulocytes Relative 1.6 % LAB HEMETOLOGY METHOD 03/27/2024 9:[address] [facility] Neutrophils Absolute 5.31 1.50 - 7.00 K/mcL LAB HEMETOLOGY METHOD 03/27/2024 9:[address] [facility] Lymphocytes Absolute 0.41(L) 1.00 - 5.00 K/mcL LAB HEMETOLOGY METHOD 03/27/2024 9:[address] [facility] Monocytes Absolute 0.58 0.20 - 1.00 K/mcL LAB HEMETOLOGY METHOD 03/27/2024 9:44 AM EST [facility] Eosinophils Absolute 0.01 0.00 - 0.50 K/mcL LAB HEMETOLOGY METHOD 03/27/2024 9:[address] [facility] Basophils Absolute 0.03 0.00 - 0.20 K/mcL LAB HEMETOLOGY METHOD 03/27/2024 9:[address] [facility] Immature Granulocytes Absolute 0.10(H) 0.00 - 0.03 K/mcL LAB HEMETOLOGY METHOD 03/27/2024 9:[address] [facility] Blood Venous blood specimen / Unknown Venipuncture / Unknown 03/27/2024 7:35 AM EST 03/27/2024 9:09 AM EST us Luisa Shepherd NP LAB BLOOD ORDERABLES Final Resul t [facility] [address] [place] [address], * (ABNORMAL) Magnesium (03/27/2024 7:35 AM EST) Only the most recent of2 resultswithin the time period is included. Pathologist [facility] Magnesium 1.2(L) 1.9 - 2.6 mg/dL LAB CHEMISTRY METHOD 03/27/2024 9:42 AM EST [facility] Blood Venous blood specimen / Unknown Venipuncture / Unknown 03/27/2024 7:35 AM EST 03/27/2024 9:08 AM EST Luisa Shepherd NP LAB BLOOD ORDERABLES Final Resul t [facility] [address] [place] [address], * Culture blood (03/26/2024 2:56 PM EST) [facility] Culture, Blood No growth at 5 days 03/31/2024 4:01 PM EST [facility] Blood Venous blood specimen / Unknown Venipuncture / Unknown 03/26/2024 2:56 PM EST 03/26/2024 3:05 PM EST Marion Hernandez MD LAB MICROBIOLOGY - GENERAL ORD ERABLES Final Result [facility] [address] [place] [address], [place] [phone] * Lavender tube (03/26/2024 6:50 AM EST) [facility] Extra Tube Hold for add-ons. 03/26/2024 9:01 AM EST [facility] Comment:Auto resulted. Blood Venous blood specimen / Unknown 03/26/2024 6:50 AM EST 03/26/2024 7:01 AM EST us Marion Hernandez MD LAB BLOOD ORDERABLES Final Res ult [facility] [address] [place] [address], * Respiratory virus panel molecular study (03/25/2024 6:49 PM EST) Adenovirus Detection by PCR Not Detected Not Detected LAB MICROBIOLOGY METHOD 03/25/2024 8:14 PM EST [facility] Influenza A PCR Not Detected Not Detected LAB MICROBIOLOGY METHOD 03/25/2024 8:14 PM EST [facility] Influenza B PCR Not Detected Not Detected LAB MICROBIOLOGY METHOD 03/25/2024 8:14 PM EST [facility] Coronavirus 229E Not Detected Not Detected LAB MICROBIOLOGY METHOD 03/25/2024 8:14 PM EST [facility] Coronavirus HKU1 Not Detected Not Detected LAB MICROBIOLOGY METHOD 03/25/2024 8:14 PM EST [facility] Coronavirus OC43 Not Detected Not Detected LAB MICROBIOLOGY METHOD 03/25/2024 8:14 PM EST [facility] Coronavirus NL63 Not Detected Not Detected LAB MICROBIOLOGY METHOD 03/25/2024 8:14 PM EST [facility] Parainfluenza Virus 1 Not Detected Not Detected LAB MICROBIOLOGY METHOD 03/25/2024 8:14 PM EST [facility] Parainfluenza Virus 2 Not Detected Not Detected LAB MICROBIOLOGY METHOD 03/25/2024 8:14 PM EST [facility] Parainfluenza Virus 3 Not Detected Not Detected LAB MICROBIOLOGY METHOD 03/25/2024 8:14 PM EST [facility] Parainfluenza Virus 4 Not Detected Not Detected LAB MICROBIOLOGY METHOD 03/25/2024 8:14 PM EST [facility] RSV PCR Not Detected Not Detected LAB MICROBIOLOGY METHOD 03/25/2024 8:14 PM EST [facility] Human Metapneumovirus A and B Not Detected Not Detected LAB MICROBIOLOGY METHOD 03/25/2024 8:14 PM EST [facility] Rhinovirus/Entero virus Not Detected Not Detected LAB MICROBIOLOGY METHOD 03/25/2024 8:14 PM EST [facility] Bordetella pertussis Not Detected Not Detected LAB MICROBIOLOGY METHOD 03/25/2024 8:14 PM EST [facility] Bordetella parapertussis Not Detected Not Detected LAB MICROBIOLOGY METHOD 03/25/2024 8:14 PM EST [facility] Mycoplasma pneumo by PCR Not Detected Not Detected LAB MICROBIOLOGY METHOD 03/25/2024 8:14 PM EST [facility] Chlamydia pneumoniae Not Detected Not Detected LAB MICROBIOLOGY METHOD 03/25/2024 8:[address] [facility] SARS COV-2 Not Detected Not Detected LAB MICROBIOLOGY METHOD 03/25/2024 8:[address] [facility] Swab Both anterior nares / Unknown Non-blood Collection / Unknown 03/25/2024 6:49 PM EST 03/25/2024 6:59 PM EST [facility] LAB - 03/25/2024 8:14 PM EST Testing [...] MICROBIOLOGY - GENERAL MALAIKA HURD Final Result [facility] [address] [place] [address], * Ethanol (03/25/2024 12:01 PM EST) Ethanol Level <3 0 - 10 mg/dL LAB CHEMISTRY METHOD 03/25/2024 1:[address] [facility] Blood Venous blood specimen / Unknown Venipuncture / Unknown 03/25/2024 12:01 PM EST 03/25/2024 12:20 PM EST us Radha MONTERO LAB BLOOD ORDERABLES Final Resu lt [facility] [address] [place] [address], [place] [phone] * (ABNORMAL) Urinalysis with reflex microscopic and culture (03/25/2024 8:26 AM EST) Specific Gore Urine 1.015 1.003 - 1.030 LAB URINALYSIS - AUTOMATED METHOD 03/25/2024 9:[address] [facility] pH, Urine 6.5 5.0 - 8.0 pH LAB URINALYSIS - AUTOMATED METHOD 03/25/2024 9:[address] [facility] Leukocytes, Urine Trace(A) Negative LAB URINALYSIS - AUTOMATED METHOD 03/25/2024 9:[address] [facility] Nitrite, Urine Positive(A) Negative LAB URINALYSIS - AUTOMATED METHOD 03/25/2024 9:[address] [facility] Protein, Urine >=300(A) <=Trace mg/dL LAB URINALYSIS - AUTOMATED METHOD 03/25/2024 9:[address] [facility] Glucose, Urine 250(A) Negative mg/dL LAB URINALYSIS - AUTOMATED METHOD 03/25/2024 9:[address] [facility] Ketones, Urine Negative Negative mg/dL LAB URINALYSIS - AUTOMATED METHOD 03/25/2024 9:[address] [facility] Urobilinogen , Urine 0.2 0.2 - 1.0 mg/dL LAB URINALYSIS - AUTOMATED METHOD 03/25/2024 9:[address] [facility] Bilirubin, Urine Negative Negative LAB URINALYSIS - AUTOMATED METHOD 03/25/2024 9:[address] [facility] Blood, Urine Moderate(A) Negative LAB URINALYSIS - AUTOMATED METHOD 03/25/2024 9:[address] [facility] RBC, Urine 10(H) 0 - 4 /HPF 03/25/2024 9:[address] [facility] WBC, Urine 80(H) 0 - 4 /HPF 03/25/2024 9:[address] [facility] Squamous Epithelial, Urine 100(H) 0 - 60 /LPF 03/25/2024 9:[address] [facility] Crystals, Urine Moderate Amorphous Urate crystals. /LPF 03/25/2024 9:[address] [facility] Bacteria, Urine Moderate(A) Negative /HPF 03/25/2024 9:[address] [facility] Urine Urine specimen obtained by clean catch procedure / Unknown Non-blood Collection / Unknown 03/25/2024 8:26 AM EST 03/25/2024 8:54 AM EST Noman Conteh MD LAB URINE ORDERABLES Monse l Result [facility] [address] [place] [address], * Lindsey urine culture tube (03/25/2024 8:26 AM EST) Extra Tube Hold for add-ons. 03/25/2024 10:[address] [facility] Comment:Auto resulted. Urine Urine specimen obtained by clean catch procedure / Unknown Non-blood Collection / Unknown 03/25/2024 8:26 AM EST 03/25/2024 8:54 AM EST us Noman Conteh MD LAB URINE ORDERABLES Monse l Result Performing Organization Address [facility]/ZIP Co de Phone Number [facility] [address] [place] [address], [place] [phone] * Culture urine (03/25/2024 8:26 AM EST) Culture, Urine No growth 03/26/2024 10:25 AM EST [facility] Urine Urine specimen obtained by clean catch procedure / Unknown Non-blood Collection / Unknown 03/25/2024 8:26 AM EST 03/25/2024 9:54 AM EST us Noman Conteh MD LAB MICROBIOLOGY - GENERA L ORDERABLES Final Result Performing Organization Address [facility] de Phone Number [facility] [address] [place] [address], [place] [phone] * Hepatitis B surface antigen with reflex to confirmation (03/25/2024 8:17 AM EST) Pathologist [facility] Hepatitis B Surface Ag Negative Negative LAB CHEMISTRY METHOD 03/25/2024 12:29 PM EST [facility] Blood Venous blood specimen / Unknown Venipuncture / Unknown 03/25/2024 8:17 AM EST 03/25/2024 8:57 AM EST Narrative [facility] - 03/25/2024 12:29 PM EST Over the counter supplements containing high doses of biotin may interfere with this assay. ??If interference is suspected, patients shoud be retested after refraining from biotin supplements for 72 hours. us Noman Conteh MD LAB BLOOD ORDERABLES Monse l Result Performing Organization Address [facility]/ZIP Co de Phone Number [facility] [address] [place] [address], [place] [phone] * Hepatitis B surface antibody quantitative (03/25/2024 8:17 AM EST) [facility] Hepatitis B Surface Ab Negative Negative LAB CHEMISTRY METHOD 03/25/2024 12:[address] [facility] Hepatitis B Surface Ab Quantitative 7.1 mIU/mL LAB CHEMISTRY METHOD 03/25/2024 12:[address] [facility] Blood Venous blood specimen / Unknown Venipuncture / Unknown 03/25/2024 8:17 AM EST 03/25/2024 8:57 AM EST [facility] LAB - 03/25/2024 12:18 PM EST >=10 mIU/mL is considered to be consistent with immunity. Noman Conteh MD LAB BLOOD ORDERABLES Monse martinez Result [facility] [address] [place] [address], * (ABNORMAL) Venous blood gas (03/25/2024 8:17 AM EST) [facility] pH, Parish 7.12(LL) 7.32 - 7.42 pH 03/25/2024 9:[address] [facility] pCO2, Parish 48 41 - 51 mmHg 03/25/2024 9:[address] [facility] pO2, Parish 54(H) 25 - 40 mmHg 03/25/2024 9:[address] [facility] HCO3, Venous 14.2(L) 22.0 - 26.0 mmol/L 03/25/2024 9:[address] [facility] O2 Sat, Parish 82.3 % 03/25/2024 9:[address] [facility] Base Excess, Parish -13.3(L) -2.0 - 2.0 mmol/L 03/25/2024 9:[address] [facility] Blood Venous blood specimen / Unknown Venipuncture / Unknown 03/25/2024 8:17 AM EST 03/25/2024 8:56 AM EST us Noman Conteh MD LAB BLOOD ORDERABLES Monse l Result [facility] [address] [place] [address], [place] [phone] * Ammonia (03/25/2024 8:17 AM EST) [facility] Ammonia 20 11 - 35 mcmol/L LAB CHEMISTRY METHOD 03/25/2024 9:17 AM EST [facility] Blood Venous blood specimen / Unknown Venipuncture / Unknown 03/25/2024 8:17 AM EST 03/25/2024 8:57 AM EST us Noman Conteh MD LAB BLOOD ORDERABLES Monse l Result Performing Organization Address City/[facility]/ZIP Co de Phone Number [facility] [address] [place] [address], [place] [phone] * (ABNORMAL) Comprehensive metabolic panel (03/25/2024 8:17 AM EST) Only the most recent of2 resultswithin the time period is included. [facility] Sodium 134 133 - 145 mmol/L LAB CHEMISTRY METHOD 03/25/2024 9:[address] [facility] Potassium 6.8(HH) 3.5 - 5.5 mmol/L LAB CHEMISTRY METHOD 03/25/2024 9:[address] [facility] Chloride 99 96 - 110 mmol/L LAB CHEMISTRY METHOD 03/25/2024 9:[address] [facility] CO2 17(L) 21 - 32 mmol/L LAB CHEMISTRY METHOD 03/25/2024 9:[address] [facility] Anion Gap 18(H) 3 - 11 LAB CHEMISTRY METHOD 03/25/2024 9:[address] [facility] Glucose 144(H) 70 - 100 mg/dL LAB CHEMISTRY METHOD 03/25/2024 9:[address] [facility] BUN 115(H) 5 - 25 mg/dL LAB CHEMISTRY METHOD 03/25/2024 9:[address] [facility] Comment:Results verified by repeat testing Creatinine 13.00(HH) 0.70 - 1.30 mg/dL LAB CHEMISTRY METHOD 03/25/2024 9:[address] [facility] eGFR 4(L) >=60 mL/min/1 .73m2 LAB CHEMISTRY METHOD 03/25/2024 9:[address] [facility] Comment:Calculation based on the??Chronic Kidney Disease Epidemiology Collaboration (CKD-EPI) equation refit??without adjustment for race. BUN/Creatinine Ratio 8.8 LAB CHEMISTRY METHOD 03/25/2024 9:[address] [facility] Calcium 8.8 8.5 - 10.5 mg/dL LAB CHEMISTRY METHOD 03/25/2024 9:[address] [facility] AST (SGOT) 24 10 - 42 unit/L LAB CHEMISTRY METHOD 03/25/2024 9:[address] [facility] ALT (SGPT) 7(L) 10 - 60 unit/L LAB CHEMISTRY METHOD 03/25/2024 9:[address] [facility] Alkaline Phosphatase 163(H) 42 - 121 unit/L LAB CHEMISTRY METHOD 03/25/2024 9:[address] [facility] Total Protein 7.1 6.0 - 8.0 g/dL LAB CHEMISTRY METHOD 03/25/2024 9:[address] [facility] Albumin 2.7(L) 3.2 - 5.0 g/dL LAB CHEMISTRY METHOD 03/25/2024 9:[address] [facility] Total Bilirubin 0.4 0.0 - 1.4 mg/dL LAB CHEMISTRY METHOD 03/25/2024 9:[address] [facility] Blood Venous blood specimen / Unknown Venipuncture / Unknown 03/25/2024 8:17 AM EST 03/25/2024 8:57 AM EST Noman Conteh MD LAB BLOOD ORDERABLES Monse l Result Performing Organization Address City/[facility]/ZIP Co de Phone Number [facility] [address] [place] [address], [place] [phone] * ECG 12 lead (03/25/2024 7:58 AM EST) Ventricular Rate ECG 70 BPM GEMUSE Atrial Rate 70 BPM GEMUSE P-R Interval 174 ms GEMUSE QRS Duration 98 ms GEMUSE Q-T Interval 410 ms GEMUSE QTc 442 ms GEMUSE P Wave [place] 3 degrees GEMUSE R [place] 6 degrees GEMUSE T [place] 87 degrees GEMUSE ECG Interpretation Normal sinus rhythm Poor R wave progression When compared with ECG of 10-AUG-2020 02:25, No significant change was found Confirmed by Meena MACDONALD, ISABELLA ([id number]) on 03/25/2024 9:18:31 AM G[facility] 03/25/2024 7:58 AM EST 03/25/2024 9:18 AM EST Noman Conteh MD ECG ORDERABLES Final Res ult Performing Organization Address City/[facility]/ZIP Co de Phone Number [facility] * XR Chest 1 View (03/25/2024 7:46 AM EST) Anatomical Region Laterality Modality Body Radiographic Fawn ging 03/25/2024 8:45 AM EST Impressions 03/25/2024 8:46 AM EST Small right pleural effusion with underlying atelectasis and/or infiltrate. The left lung remains clear. Cardiomegaly, new since 08/10/2020. Code 70171 -------- FINAL REPORT -------- Dictated By: Daren Sol Dictated Date: 03/25/2024 08:45 ET Assigned Physician: Daren Sol Reviewed and Electronically Signed By: Daren Sol Signed Date: 03/25/2024 08:46 ET Workstation ID: [id number] Transcribed By: Self Edit Transcribed Date: 03/25/2024 [...] lung remains clear. Cardiomegaly, new since08/10/2020. Code 67525 -------- FINAL REPORT -------- Dictated By: Daren Sol Dictated Date: 03/25/2024 08:45 ET Assigned Physician: Daren Sol Reviewed and Electronically Signed By: Daren Sol Signed Date: 03/25/2024 08:46 ET Workstation ID: [id number] Transcribed By: Self Edit Transcribed Date: 03/25/2024 08:45 ET Noman Conteh MD IMG XR PROCEDURES Final R esult * ECG-Annotated (03/25/2024) us Provider Onbase ECG ORDERABLES Final Result from Last 3 Months Insurance MEDICARE ADVANTAGE GENERIC on file [employer] MEDICARE [place]ICAID - [place] Advance Directives Documents on File Type Date Recorded Patient Razor Grinder Expl anation Advance Directives and Living Will [...] Relationship Healthcare Agent Relationshi p Communication [facility] Agent Beau [facility] Agent Care Teams Fur Finisher Tailor Relationship Specialty Start Date End Date Cass Turcios MD [address] [place] [address] [address] [place] [address] PCP - General Geriatric Medicine 04/02/24
--- OUTSIDE RECORDS SUMMARY | 2024-05-01 19:50 | XMS_ITS | Encounter Summary ---
Author Organization [facility] [place], Address [address] [place] [address] Phone Care Team Providers Care Prism Inspector Name Role Phone Jade Lewis MD Primary Care Provider + [phone] Reason for Visit * Reason Comments Med Refill Encounter Details Date Type Department Care Team (Late st Contact Info) Description 04/27/2019 Refill [facility] [address] [place] [address] Mercedes Law MD Social History [...] on filedocumented in this encounter Care Teams Prism Inspector Relationship Specialty Start Date End Date Jade Lewis MD [address] [place], [place] [phone] PCP - General Internal Medicine 04/25/22 documented as of this encounter
--- OUTSIDE RECORDS SUMMARY | 2024-05-01 19:50 | XMS_ITS | Encounter Summary ---
Author Organization [facility] [place], Address [address] [place] [address] Phone Care Team Providers Care Land Acquisition Manager Name Role Phone Jade Lewis MD Primary Care Provider + [phone] Encounter Details Date Type Department Care Team (Late st Contact Info) Description 04/24/2024 Orders Only [facility] [address] [place] [address] Car Mcdonald MD [address] [place] [address] [place] [address] Social History Tobacco Use Types Packs/Day Years [...] x 3 29.7(L) 42.0 - 54.0 % [facility] 04/24/2024 04/25/2024 9:3 0 AM EST Narrative MARISELAE - 04/25/2024 Unless otherwise specified, test(s) performed at: [facility], [address] [place] [address] CLAY PREPARATION SUPERVISOR: Homero Garcia M.D. For any questions, please call customer service at FREQUENCY:OTHER Resulting Agency Comment Specimen source: Blood us Car Mcdonald MD LAB BLOOD ORDERABLES Final Re sult [facility] See order comments or contact performing lab Unknown, [place] documented in this encounter Visit Diagnoses Not on filedocumented in this encounter Care Teams Land Acquisition Manager Relationship Specialty Start Date End Date Jade Lewis MD [address] [place] [address] PCP - General Internal Medicine 04/25/22 documented as of this encounter
--- OUTSIDE RECORDS SUMMARY | 2024-05-01 19:50 | XMS_ITS | Encounter Summary ---
Author Organization [facility] [place], Address [address] [place] [address] Phone Care Team Providers Care Campus Monitor Name Role Phone Jade Lewis MD Primary Care Provider [phone] Reason for Visit * Reason Comments Med Refill Encounter Details Date Type Department Care Team (Late st Contact Info) Description 05/22/2023 Refill [facility] [address] [place] [phone] Car Mcdonald MD [facility] [place] [address] Social History Tobacco Use Types Packs/Day Years [...] on filedocumented in this encounter Care Teams Campus Monitor Relationship Specialty Start Date End Date Jade Lewis MD [address] [place] [address] PCP - General Internal Medicine 04/25/22 documented as of this encounter
--- OUTSIDE RECORDS SUMMARY | 2024-05-01 19:50 | XMS_ITS | Encounter Summary ---
Author Organization [facility] [place], Address [address] [place] [address] Phone Care Team Providers Care Academic Support Specialist Name Role Phone Jade Lewis MD Primary Care Provider + [phone] Reason for Visit * Reason Comments Med Refill Encounter Details Date Type Department Care Team ([facility] st Contact Info) Description 06/25/2019 Refill [facility] [address] [place] [address] Mercedes Law MD Social History [...] on filedocumented in this encounter Care Teams Academic Support Specialist Relationship Specialty Start Date End Date Jade Lewis MD [address] [place], [place] [id number] PCP - General Internal Medicine 04/25/22 documented as of this encounter
--- OUTSIDE RECORDS SUMMARY | 2024-05-01 19:50 | XMS_ITS | Encounter Summary ---
Author Organization [facility] [place], Address [address] [place] [address] Phone Care Team Providers Care Track Maintainer Name Role Phone Jade Lewis MD Primary Care Provider + [phone] Reason for Visit * Reason Comments Med Refill Encounter Details Date Type Department Care Team (Late st Contact Info) Description 06/13/2023 Refill [facility] [address] [place] [phone] Malcolm Taylor MD [address] [place] [phone] Social History Tobacco Use Types Packs/Day Years [...] on filedocumented in this encounter Care Teams Track Maintainer Relationship Specialty Start Date End Date Jade Lewis MD [address] [place] [address] PCP - General Internal Medicine 04/25/22 documented as of this encounter
--- OUTSIDE RECORDS SUMMARY | 2024-05-01 19:50 | XMS_ITS | Encounter Summary ---
Author Organization [facility] [place], Address [address] [place] [address] Phone Care Team Providers Care Public Health Nutritionist Name Role Phone Jade Lewis MD Primary Care Provider + [phone] Encounter Details Date Type Department Care Team (Late st Contact Info) Description 04/22/2024 Orders Only [facility] [address] [place] [address] Car Mcdonald MD [address] [place] [address] [place] [address] Social History Tobacco Use Types Packs/Day Years [...] 04/22/2024 documented in this encounter Results * [facility] Lab Results (04/22/2024) Pathologist [facility] eNPCR 1.12 [facility] spKt/V Gotch 1.46 [facility] PCR 82.11 [facility] eKt/V Gotch 1.18 [facility] [place] spKt/V (Daugirdas II) 1.46 [facility] eKdrt/V 1.18 [facility] eKt/V ([place]) 1.21 [facility] nPCR_HD 1.21 [facility] WSTDKT/V 1.6 [facility] 04/22/2024 04/22/2024 [facility] Ordering Provider LAB BLOOD ORDERABLES Final Result Performing Organization Address City/[facility]/ZIP Co de Phone Number [facility] Contact Performing lab Unknown, [place] * HD KINETICS (04/22/2024) [facility] % Urea Reduction 71 65 - 80 % [facility] 04/22/2024 04/25/2024 1:0 9 PM EST Narrative [facility] - 04/25/2024 Unless otherwise specified, test(s) performed at: [facility], [address] [place], [place] [id number] PRACTICE REPRESENTATIVE: Homero Garcia M.D. For any questions, please call customer service at FREQUENCY:OTHER Resulting Agency Comment Specimen source: Plasma Car Mcdonald MD LAB BLOOD ORDERABLES Final Re sult [facility] See order comments or contact performing lab Unknown, [place] * (ABNORMAL) [facility] Chemistry (04/22/2024) [facility] BUN 91(H) 6 - 19 mg/dL [facility] 04/22/2024 04/25/2024 11: 48 AM EST Narrative [facility] - 04/25/2024 Unless otherwise specified, test(s) performed at: [facility], [address] [place] [address] PRACTICE REPRESENTATIVE: Homero Garcia M.D. For any questions, please call customer service at FREQUENCY:OTHER Resulting Agency Comment Specimen source: Serum Car Mcdonald MD LAB BLOOD ORDERABLES Final Re sult Performing Organization Address City/[facility] Co de Phone Number [facility] See order comments or contact performing lab Unknown, [place] * (ABNORMAL) POST CHEMISTRY (04/22/2024) BUN Post Dialysis 26(H) 6 - 19 mg/dL [facility] 04/22/2024 04/25/2024 1:0 9 PM EST Narrative [facility] - 04/25/2024 Unless otherwise specified, test(s) performed at: [facility], [address] [place] [address] PRACTICE REPRESENTATIVE: Homero Garcia M.D. For any questions, please call customer service at FREQUENCY:OTHER Resulting Agency Comment Specimen source: Plasma Car Mcdonald MD LAB BLOOD ORDERABLES Final Re sult Performing Organization Address [facility] Co de Phone Number [facility] See order comments or contact performing lab Unknown, [place] documented in this encounter Visit Diagnoses Not on filedocumented in this encounter Care Teams Public Health Nutritionist Relationship Specialty Start Date End Date Jade Lewis MD [address] [place] [address] PCP - General Internal Medicine 04/25/22 documented as of this encounter
--- OUTSIDE RECORDS SUMMARY | 2024-05-01 19:50 | XMS_ITS | Encounter Summary ---
Author Organization [facility] [place], Address [address] [place] [address] Phone Care Team Providers Care Social Media Executive Name Role Phone Jade Lewis MD Primary Care Provider + [phone] Encounter Details Date Type Department Care Team (Late st Contact Info) Description 04/05/2024 Treatment [facility] [place], [address] [place] [phone] David Holbrook, [employer] [address] [place] [address] Social History Tobacco Use Types Packs/Day Years [...] care for end stage renal disease. 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 Dietary adjustments made in conjunction with fishing tool supervisor. 7.Transplant: The patient is being evaluated for a kidney transplant. Signed by: DAVID HOLBROOK APRN on 04/05/2024 at 02:04:52 PM Transcribed by: DAVID HOLBROOK APRN on 04/05/2024 at 02:04:52 PM documented in this encounter Plan of Treatment Not on file documented as of this encounter Visit Diagnoses Not on filedocumented in this encounter Care Teams Social Media Executive Relationship Specialty Start Date End Date Jade Lewis MD [address] [place] [address] PCP - General Internal Medicine 04/25/22 documented as of this encounter
--- OUTSIDE RECORDS SUMMARY | 2024-05-01 19:50 | XMS_ITS | Encounter Summary ---
Author Organization [facility] [employer], Address [address] [place] [address] Phone Care Team Providers Care Foreign Exchange Dealer Name Role Phone Jade Lewis MD Primary Care Provider + [phone] Encounter Details Date Type Department Care Team (Late st Contact Info) Description 2024 Orders Only [facility] [address] [place] [address] Car Mcdonald MD [address] [place] [address] [place] [address] Social History Tobacco Use Types Packs/Day Years [...] 2024 documented in this encounter Results * [facility] Lab Results (2024) Pathologist [facility] spKt/V (Daugirdas II) 1.12 [facility] eKdrt/V 0.85 [facility] WSTDKT/V 2.1 [facility] nPCR_HD 1.21 [facility] spKt/V Gotch 1.14 [facility] ge [place] eKt/V Gotch 0.85 [facility] e Center PCR 77.04 [facility] eKt/V ([place]) 0.88 [facility] eNPCR 1.05 [facility] 2024 2024 [facility] Ordering Provider LAB BLOOD ORDERABLES Final Result [facility] Contact Performing lab Unknown, [place] * (ABNORMAL) HD KINETICS (2024) [facility] % Urea Reduction 64(L) 65 - 80 % [facility] 2024 04/27/2024 12: 06 PM EST Narrative [facility] - 04/27/2024 Unless otherwise specified, test(s) performed at: [facility], [address] [place] [address] PURCHASING ENGINEER: Homero Garcia M.D. For any questions, please call customer service at FREQUENCY:OTHER Resulting Agency Comment Specimen source: Plasma Car Mcdonald MD LAB BLOOD ORDERABLES Final Re sult [facility] See order comments or contact performing lab Unknown, [place] * (ABNORMAL) [facility] Chemistry (2024) [facility] BUN 83(H) 6 - 19 mg/dL [facility] 2024 04/27/2024 11: 43 AM EST Narrative [facility] - 04/27/2024 Unless otherwise specified, test(s) performed at: [facility], [address] [place] [address] PURCHASING ENGINEER: Homero Garcia M.D. For any questions, please call customer service at FREQUENCY:OTHER Resulting Agency Comment Specimen source: Serum Car Mcdonald MD LAB BLOOD ORDERABLES Final Re sult Performing Organization Address City/[facility]/ZIP Co de Phone Number [facility] See order comments or contact performing lab Unknown, [place] * (ABNORMAL) POST CHEMISTRY (2024) BUN Post Dialysis 30(H) 6 - 19 mg/dL [facility] 2024 04/27/2024 12: 06 PM EST Narrative [facility] - 04/27/2024 Unless otherwise specified, test(s) performed at: [facility], [address] [place] [address] PURCHASING ENGINEER: Homero Garcia M.D. For any questions, please call customer service at FREQUENCY:OTHER Resulting Agency Comment Specimen source: Plasma Car Mcdonald MD LAB BLOOD ORDERABLES Final Re sult Performing Organization Address [facility]/ZIP Co de Phone Number [facility] See order comments or contact performing lab Unknown, [place] documented in this encounter Visit Diagnoses Not on filedocumented in this encounter Care Teams Foreign Exchange Dealer Relationship Specialty Start Date End Date Jade Lewis MD [address] [place] [address] PCP - General Internal Medicine 04/25/22 documented as of this encounter
--- OUTSIDE RECORDS SUMMARY | 2024-05-01 19:50 | XMS_ITS | Encounter Summary ---
Author Organization [facility] Address [address] [place] [address] Care Team Providers Care Service Trainer Name Role Phone Cass Turcios MD Primary Care Provider [phone] Encounter Details Date Type Department Care Team (Late st Contact Info) Description 03/25/2024 Lab Requisition [facility] Lab [address] [facility] [place] [address] Cass Turcios MD [address] [place] [address] Anemia, unspecified; Chronic diastolic (congestive) heart failure [...] care for your loved ones. For example, director child development center or elderly care for an older adult? [...] mmol/L LAB CHEMISTRY METHOD 03/25/2024 2:44 PM [facility] Potassium 7.3(HH) 3.5 - 5.5 mmol/L LAB CHEMISTRY METHOD 03/25/2024 2:44 PM [facility] Chloride 101 96 - 110 mmol/L LAB CHEMISTRY METHOD 03/25/2024 2:44 PM [facility] CO2 15(L) 21 - 32 mmol/L LAB CHEMISTRY METHOD 03/25/2024 2:44 PM [facility] Anion Gap 17(H) 3 - 11 LAB CHEMISTRY METHOD 03/25/2024 2:44 PM [facility] Glucose 62(L) 70 - 100 mg/dL LAB CHEMISTRY METHOD 03/25/2024 2:44 PM [facility] BUN 112(H) 5 - 25 mg/dL LAB CHEMISTRY METHOD 03/25/2024 2:44 PM [facility] Creatinine 12.80(HH) 0.70 - 1.30 mg/dL LAB CHEMISTRY METHOD 03/25/2024 2:44 PM [facility] eGFR 4(L) >=60 mL/min/1 .73m2 LAB CHEMISTRY METHOD 03/25/2024 2:44 PM [facility] Comment:Calculation based on the??Chronic Kidney Disease Epidemiology Collaboration (CKD-EPI) equation refit??without adjustment for race. BUN/Creatinine Ratio 8.8 LAB CHEMISTRY METHOD 03/25/2024 2:44 PM [facility] Calcium 8.8 8.5 - 10.5 mg/dL LAB CHEMISTRY METHOD 03/25/2024 2:44 PM [facility] AST (SGOT) 21 10 - 42 unit/L LAB CHEMISTRY METHOD 03/25/2024 2:44 PM [facility] ALT (SGPT) 9(L) 10 - 60 unit/L LAB CHEMISTRY METHOD 03/25/2024 2:44 PM [facility] Alkaline Phosphatase 172(H) 42 - 121 unit/L LAB CHEMISTRY METHOD 03/25/2024 2:44 PM [facility] Total Protein 6.9 6.0 - 8.0 g/dL LAB CHEMISTRY METHOD 03/25/2024 2:44 PM [facility] Albumin 2.7(L) 3.2 - 5.0 g/dL LAB CHEMISTRY METHOD 03/25/2024 2:44 PM [facility] Total Bilirubin 0.4 0.0 - 1.4 mg/dL LAB CHEMISTRY METHOD 03/25/2024 2:44 PM [facility] Blood Venous blood specimen / Unknown Venipuncture / Unknown 03/25/2024 5:09 AM EST 03/25/2024 11:52 AM EST us Cass Turcios MD LAB BLOOD ORDERABLES Final Resul t [facility] [address] [place] [address], * (ABNORMAL) Complete blood count (03/25/2024 5:09 AM EST) WBC 14.1(H) 4.8 - 10.8 K/mcL LAB HEMETOLOGY METHOD 03/25/2024 2:27 PM [facility] RBC 4.60 4.50 - 5.50 M/mcL LAB HEMETOLOGY METHOD 03/25/2024 2:27 PM [facility] Hemoglobin 10.5(L) 13.5 - 17.5 g/dL LAB HEMETOLOGY METHOD 03/25/2024 2:27 PM [facility] Hematocrit 35.9(L) 42.0 - 54.0 % LAB HEMETOLOGY METHOD 03/25/2024 2:27 PM [facility] MCV 77.7(L) 79.0 - 98.0 FL LAB HEMETOLOGY METHOD 03/25/2024 2:27 PM [facility] MCH 22.7(L) 27.0 - 32.0 pcg LAB HEMETOLOGY METHOD 03/25/2024 2:27 PM [facility] MCHC 29.2(L) 32.0 - 37.0 g/dL LAB HEMETOLOGY METHOD 03/25/2024 2:27 PM [facility] RDW 17.5(H) 11.0 - 15.0 % LAB HEMETOLOGY METHOD 03/25/2024 2:27 PM [facility] Platelets 254 130 - 400 K/mcL LAB HEMETOLOGY METHOD 03/25/2024 2:27 PM [facility] MPV LAB HEMETOLOGY METHOD 03/25/2024 2:27 PM [facility] Comment:Not Measured NRBC 0.0 <1.0 % LAB HEMETOLOGY METHOD 03/25/2024 2:27 PM [facility] NRBC Absolute 0.00 <0.10 K/mcL LAB HEMETOLOGY METHOD 03/25/2024 2:27 PM [facility] Blood Venous blood specimen / Unknown Venipuncture / Unknown 03/25/2024 5:09 AM EST 03/25/2024 11:52 AM EST us Cass Turcios MD LAB BLOOD ORDERABLES Final Resul t [facility] [address] [place] [address], documented in this encounter Visit Diagnoses Diagnosis Anemia, unspecified Chronic diastolic (congestive) heart failure (CMS/HCC) Other pericardial effusion (noninflammatory) End stage renal disease (CMS/HCC) End stage renal disease documented in this encounter Additional Health Concerns Infection Onset Date Last Indicated Resolved Time Respiratory Rule-Out 03/25/2024 03/25/2024 025 8:14 PM EST documented as of this encounter Care Teams Service Trainer Relationship Specialty Start Date End Date Cass Turcios MD [address] [facility] [address] [place] [address] PCP - General Geriatric Medicine 04/02/24 documented as of this encounter
--- OUTSIDE RECORDS SUMMARY | 2024-05-01 19:50 | XMS_ITS | Encounter Summary ---
Author Organization [facility] [place], Address [address] [place] [address] Phone Care Team Providers Care Senior Ssis Developer Name Role Phone Jade Lewis MD Primary Care Provider + [phone] Encounter Details Date Type Department Care Team (Late st Contact Info) Description 04/01/2024 Treatment [facility] [place] [place], [address] [place] [address] Dylan Grace MD [address] [place] [address] [place] [address] Social History Tobacco Use Types Packs/Day Years [...] care for end stage renal disease. Attending Pressure Washer: DYLAN GRACE Dialysis Location: [facility] Schedule: Shift: HOME MEDICATIONS [facility] Outpatient Medications allopurinol 100 mg [...] Inhub 100-50 mcg/dose blister with device Current [facility] Allergies Allergen: No Known Allergies Allergen: No [...] K, 2.50 Ca, 1.0 Mg, 100 Dextrose ([id number]) Sodium: 138 Bicarb: 38 Pre Dialysis Vitals [...] reviewed. Dietary adjustments made in conjunction with concrete tester. 7.Transplant: The patient is being evaluated for a kidney transplant. Signed by: DYLAN GRACE MD on 04/08/2024 at 08:01:48 AM Transcribed by: DYLAN GRACE MD on 04/08/2024 at 08:01:48 AM documented in this encounter Plan of Treatment Not on file documented as of this encounter Visit Diagnoses Not on filedocumented in this encounter Care Teams Senior Ssis Developer Relationship Specialty Start Date End Date Jade Lewis MD [address] [place], [place] [id number] PCP - General Internal Medicine 04/25/22 documented as of this encounter
--- OUTSIDE RECORDS SUMMARY | 2024-05-01 19:50 | XMS_ITS | Encounter Summary ---
Author Organization [facility] [place], Address [address] [place] [address] Phone Care Team Providers Care Financial Foundations Representative Name Role Phone Jade Lewis MD Primary Care Provider + [phone] Encounter Details Date Type Department Care Team (Late st Contact Info) Description 04/19/2024 Treatment [facility] [place], [address] [place] [phone] Arely Hernández, SUPERVISOR [employer] [address] [place] [address] Social History Tobacco Use Types Packs/Day Years [...] BEAU [place], 1955, 68y, M Dialysis Location: [facility] Attending Health Clinician: Car Mcdonald Service Date: 04/19/2024 Service Provider: [...] at 8:33 AM Signed By: Arely Hernández, MAINFRAME SYSTEMS ENGINEER on 04/19/2024 8:34:13 AM documented in this encounter Plan of Treatment Not on file documented as of this encounter Visit Diagnoses Not on filedocumented in this encounter Care Teams Financial Foundations Representative Relationship Specialty Start Date End Date Jade Lewis MD [address] [place] [address] PCP - General Internal Medicine 04/25/22 documented as of this encounter
--- OUTSIDE RECORDS SUMMARY | 2024-05-01 19:50 | XMS_ITS | Clinical Summary ---
Author Organization [facility] Address [address] [place] [address] [address] [place] [address] Care Team Providers Care Manufacturing Automation Engineer Name Role Phone Unavailable Primary Care Provider [...]
--- OUTSIDE RECORDS SUMMARY | 2024-05-01 19:50 | XMS_ITS | Encounter Summary ---
Author Organization [facility] Address [address] [facility] [address] [place] [address] Phone Care Team Providers Care Licensed Midwife Name Role Phone Jade Lewis MD Primary Care Provider + [phone] Reason for Visit * Reason Onset Date Comments Med Refill 04/19/2022 Encounter Details Date Type Department Care Team (Late st Contact Info) Description 04/19/2022 Refill [facility] [address] [place] [phone] Loida Madsen Social History Tobacco Use Types [...] on filedocumented in this encounter Care Teams Licensed Midwife Relationship Specialty Start Date End Date Jade Lewis MD [address] [place] [address] PCP - General Internal Medicine 04/25/22 documented as of this encounter
--- OUTSIDE RECORDS SUMMARY | 2024-05-01 19:50 | XMS_ITS | Encounter Summary ---
Author Organization [facility] Address [address] [place] [address] Care Team Providers Care Medical Instrument Technician Name Role Phone Cass Turcios MD Primary Care Provider Encounter Details Date Type Department Care Team (Late st Contact Info) Description 04/02/2024 Lab Requisition [facility] - Main Lab [address] [facility] [place] [address] Cass Turcios MD [address] [place] [address] End stage renal disease (CMS/HCC) Social History [...] for your loved ones. For example, child caregiver or elderly care for an older adult? [...] mmol/L LAB CHEMISTRY METHOD 04/02/2024 10:35 AM [facility] Potassium 5.6(H) 3.5 - 5.5 mmol/L LAB CHEMISTRY METHOD 04/02/2024 10:35 AM [facility] Chloride 95(L) 96 - 110 mmol/L LAB CHEMISTRY METHOD 04/02/2024 10:35 AM [facility] CO2 32 21 - 32 mmol/L LAB CHEMISTRY METHOD 04/02/2024 10:35 AM [facility] Anion Gap 8 3 - 11 LAB CHEMISTRY METHOD 04/02/2024 10:35 AM [facility] Glucose 32(LL) 70 - 100 mg/dL LAB CHEMISTRY METHOD 04/02/2024 10:35 AM [facility] BUN 50(H) 5 - 25 mg/dL LAB CHEMISTRY METHOD 04/02/2024 10:35 AM [facility] Creatinine 7.72(H) 0.70 - 1.30 mg/dL LAB CHEMISTRY METHOD 04/02/2024 10:35 AM [facility] eGFR 7(L) >=60 mL/min/1. 73m2 LAB CHEMISTRY METHOD 04/02/2024 10:35 AM [facility] Comment:Calculation based on the??Chronic Kidney Disease Epidemiology Collaboration (CKD-EPI) equation refit??without adjustment for race. BUN/Creatinine Ratio 6.5 LAB CHEMISTRY METHOD 04/02/2024 10:35 AM [facility] Calcium 8.3(L) 8.5 - 10.5 mg/dL LAB CHEMISTRY METHOD 04/02/2024 10:35 AM [facility] Blood Venous blood specimen / Unknown Venipuncture / Unknown 04/02/2024 5:24 AM EST 04/02/2024 8:48 AM EST us Cass Turcios MD LAB BLOOD ORDERABLES Final Resul t [facility] [address] [place] [address], * (ABNORMAL) Complete blood count (04/02/2024 5:24 AM EST) WBC 26.2(H) 4.8 - 10.8 K/mcL LAB HEMETOLOGY METHOD 04/02/2024 9:47 AM [facility] RBC 4.10(L) 4.50 - 5.50 M/mcL LAB HEMETOLOGY METHOD 04/02/2024 9:47 AM [facility] Hemoglobin 9.4(L) 13.5 - 17.5 g/dL LAB HEMETOLOGY METHOD 04/02/2024 9:47 AM [facility] Hematocrit 31.2(L) 42.0 - 54.0 % LAB HEMETOLOGY METHOD 04/02/2024 9:47 AM [facility] MCV 76.1(L) 79.0 - 98.0 FL LAB HEMETOLOGY METHOD 04/02/2024 9:47 AM [facility] MCH 22.9(L) 27.0 - 32.0 pcg LAB HEMETOLOGY METHOD 04/02/2024 9:47 AM [facility] MCHC 30.1(L) 32.0 - 37.0 g/dL LAB HEMETOLOGY METHOD 04/02/2024 9:47 AM [facility] RDW 17.1(H) 11.0 - 15.0 % LAB HEMETOLOGY METHOD 04/02/2024 9:47 AM [facility] Platelets 349 130 - 400 K/mcL LAB HEMETOLOGY METHOD 04/02/2024 9:47 AM [facility] MPV 11.4(H) 7.0 - 11.0 FL LAB HEMETOLOGY METHOD 04/02/2024 9:47 AM EST [facility] NRBC 0.0 <1.0 % LAB HEMETOLOGY METHOD 04/02/2024 9:47 AM EST [facility] NRBC Absolute 0.00 <0.10 K/mcL LAB HEMETOLOGY METHOD 04/02/2024 9:47 AM EST [facility] Blood Venous blood specimen / Unknown Venipuncture / Unknown 04/02/2024 5:24 AM EST 04/02/2024 8:48 AM EST us Cass Turcios MD LAB BLOOD ORDERABLES Final Resul t [facility] [address] [place] [address], documented in this encounter Visit Diagnoses Diagnosis End stage renal disease (CMS/[facility]) End stage renal disease documented in this encounter Care Teams Medical Instrument Technician Relationship Specialty Start Date End Date Cass Turcios MD [address] [place] [address] [address] [place] [address] PCP - General Geriatric Medicine 04/02/24 documented as of this encounter
--- OUTSIDE RECORDS SUMMARY | 2024-05-01 19:50 | XMS_ITS | Encounter Summary ---
Author Organization [facility], Address [address] [place] [address] Phone Care Team Providers Care Oracle Distribution Consultant Name Role Phone Jade Lewis MD Primary Care Provider [phone] Encounter Details Date Type Department Care Team (Late st Contact Info) Description 10/28/2019 Orders Only [facility] [address] [phone] [place] [address] [place] [phone] Social History Tobacco Use Types Packs/Day Years [...] on filedocumented in this encounter Care Teams Oracle Distribution Consultant Relationship Specialty Start Date End Date Jade Lewis MD [address] [place] [address] PCP - General Internal Medicine 04/25/22 documented as of this encounter
--- OUTSIDE RECORDS SUMMARY | 2024-05-01 19:50 | XMS_ITS | Encounter Summary ---
Author Organization [facility], Address [address] [place] [address] Phone Care Team Providers Care Business Sales Consultant Name Role Phone Jade Lewis MD Primary Care Provider + [phone] Encounter Details Date Type Department Care Team (Late st Contact Info) Description 04/19/2024 Orders Only [facility] [address] [place] [address] Car Mcdonald MD [address] [place] [address] [place] [address] Social History Tobacco Use Types Packs/Day Years [...] in this encounter Results * (ABNORMAL) [facility] Chemistry (04/19/2024) Creatinine 7.75(H) 0.60 [...] 04/22/2024 Unless otherwise specified, test(s) performed at: [facility], [address] [place] [address] PATIENT ACCESS REPRESENTATIVE: Homero Garcia M.D. For any questions, please call customer service at FREQUENCY:MONTHLY Resulting Agency Comment Specimen source: Serum us Car Mcdonald MD LAB BLOOD ORDERABLES Edited R esult - Final [facility] See order comments or contact performing lab Unknown, [place] * IMMUNO CHEMISTRY (04/19/2024) Pathologist [facility] [place] Hep B Surface Ag Negative Negative [facility] 04/19/2024 04/20/2024 12: 30 PM EST Narrative [facility] - 04/20/2024 Unless otherwise specified, test(s) performed at: [facility], [address] [place] [id number] PATIENT ACCESS REPRESENTATIVE: Homero Garcia M.D. For any questions, please call customer service at FREQUENCY:MONTHLY Resulting Agency Comment Specimen source: Serum Car Mcdonald MD LAB BLOOD ORDERABLES Final Re sult Performing Organization Address [facility] de Phone Number [facility] See order comments or contact performing lab Unknown, [place] * (ABNORMAL) [facility] Chemistry (04/19/2024) Pathologist [facility] PTH 773(H) 16 - 80 pg/mL [facility] 04/19/2024 04/20/2024 12: 01 PM EST Narrative [facility] - 04/20/2024 Unless otherwise specified, test(s) performed at: [facility], [address] [place] [address] PATIENT ACCESS REPRESENTATIVE: Homero Garcia M.D. For any questions, please call customer service at FREQUENCY:MONTHLY Resulting Agency Comment Specimen source: Plasma Car Mcdonald MD LAB BLOOD ORDERABLES Final Re sult Performing Organization Address [facility] Co de Phone Number [facility] See order comments or contact performing lab Unknown, [place] * (ABNORMAL) HEMATOLOGY (04/19/2024) Pathologist [facility] Hemoglobin 9.2(L) 14.0 - 18.0 g/dL [facility] Hemoglobin x 3 27.6(L) 42.0 - 54.0 % [facility] 04/19/2024 04/20/2024 12: 01 PM EST Narrative [facility] - 04/20/2024 Unless otherwise specified, test(s) performed at: [facility], [address] [place] [address] PATIENT ACCESS REPRESENTATIVE: Homero Garcia M.D. For any questions, please call customer service at FREQUENCY:MONTHLY Resulting Agency Comment Specimen source: Blood us Car Mcdonald MD LAB BLOOD ORDERABLES Final Re sult [facility] See order comments or contact performing lab Unknown, [place] documented in this encounter Visit Diagnoses Not on filedocumented in this encounter Care Teams Business Sales Consultant Relationship Specialty Start Date End Date Jade Lewis MD [address] [place] [address] PCP - General Internal Medicine 04/25/22 documented as of this encounter
--- OUTSIDE RECORDS SUMMARY | 2024-05-01 19:50 | XMS_ITS | Encounter Summary ---
Author Organization [facility], Address [address] [place] [address] Phone Care Team Providers Care Layboy Tender Name Role Phone Jade Lewis MD Primary Care Provider + [phone] Encounter Details Date Type Department Care Team (Late st Contact Info) Description 03/15/2024 Treatment [facility], [address] [place] [address] Dylan Grace MD [address] [place] [address] [place] [address] Social History Tobacco Use Types Packs/Day Years [...] care for end stage renal disease. Attending Metal Fabricator: DYLAN GRACE Dialysis Location: [facility] Schedule: Shift: HOME MEDICATIONS [facility] Outpatient Medications allopurinol 100 mg [...] Inhub 100-50 mcg/dose blister with device Current [place] Allergies Allergen: No Known Allergies Allergen: No [...] K, 2.50 Ca, 1.0 Mg, 100 Dextrose ([id number]) Sodium: 138 Bicarb: 38 Pre Dialysis Vitals [...] reviewed. Dietary adjustments made in conjunction with dry house operator. 7.Transplant: The patient is being evaluated for a kidney transplant. Signed by: DYLAN GRACE MD on 04/08/2024 at 08:01:34 AM Transcribed by: DYLAN GRACE MD on 04/08/2024 at 08:01:34 AM documented in this encounter Plan of Treatment Not on file documented as of this encounter Visit Diagnoses Not on filedocumented in this encounter Care Teams Layboy Tender Relationship Specialty Start Date End Date Jade Lewis MD [address] [place], [place] [id number] PCP - General Internal Medicine 04/25/22 documented as of this encounter
--- OUTSIDE RECORDS SUMMARY | 2024-05-01 19:51 | XMS_ITS | Encounter Summary ---
Author Organization [facility], Address [address] [place] [address] Phone Care Team Providers Care Arborer Name Role Phone Jade Lewis MD Primary Care Provider + [phone] Reason for Visit * Reason Comments Med Refill Encounter Details Date Type Department Care Team (Late st Contact Info) Description 12/24/2022 Refill [facility] [address] [place] [phone] Car Mcdonald MD [facility] [place] [address] Social History Tobacco Use Types Packs/Day Years [...] on filedocumented in this encounter Care Teams Arborer Relationship Specialty Start Date End Date Jade Lewis MD [address] [place] [address] PCP - General Internal Medicine 04/25/22 documented as of this encounter
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
--- OUTSIDE RECORDS SUMMARY | 2024-05-01 19:51 | XMS_ITS | Encounter Summary ---
Author Organization [facility] Address [address] [place] [address] Phone Care Team Providers Care Senior Business Architect Name Role Phone Jade Lewis MD Primary Care Provider + [phone] Reason for Visit * Reason Comments Med Refill Encounter Details Date Type Department Care Team (Late st Contact Info) Description 04/30/2021 Refill [facility] [address] [place] [phone] Alejandro Santana MD [address] [place] [phone] Social History Tobacco Use Types Packs/Day Years [...] filedocumented in this encounter Care Teams Senior Business Architect Relationship Specialty Start Date End Date Jade Lewis MD [address] [place] [address] PCP - General Internal Medicine 04/25/22 documented as of this encounter
--- OUTSIDE RECORDS SUMMARY | 2024-05-01 19:51 | XMS_ITS | Encounter Summary ---
Author Organization [facility], Address [address] [place] [address] Phone Care Team Providers Care Water Registrar Name Role Phone Jade Lewis MD Primary Care Provider + [phone] Reason for Visit * Reason Comments Med Refill Encounter Details Date Type Department Care Team ([facility] st Contact Info) Description 10/28/2020 Refill [facility] [address] [place] [phone] Alejandro Santana MD [address] [place] [phone] Social History Tobacco Use Types Packs/Day Years [...] filedocumented in this encounter Care Teams Water Registrar Relationship Specialty Start Date End Date Jade Lewis MD [address] [place] [address] PCP - General Internal Medicine 04/25/22 documented as of this encounter
--- OUTSIDE RECORDS SUMMARY | 2024-05-01 19:51 | XMS_ITS | Encounter Summary ---
Author Organization [facility], Address [address] [place] [address] Phone Care Team Providers Care Nerve Specialist Name Role Phone Jade Lewis MD Primary Care Provider [phone] Reason for Visit * Reason Comments Med Refill Encounter Details Date Type Department Care Team (Late st Contact Info) Description 09/17/2022 Refill [facility] [address] [place] [phone] Malcolm Taylor MD [address] [place] [address] [place] [address] Social History Tobacco Use Types Packs/Day Years [...] on filedocumented in this encounter Care Teams Nerve Specialist Relationship Specialty Start Date End Date Jade Lewis MD [address] [place] [address] PCP - General Internal Medicine 04/25/22 documented as of this encounter
--- OUTSIDE RECORDS SUMMARY | 2024-05-01 19:51 | XMS_ITS | Encounter Summary ---
Author Organization [facility], Address [address] [place] [address] Phone Care Team Providers Care Head Orthopedic Team Physician Name Role Phone Jade Lewis MD Primary Care Provider + [phone] Encounter Details Date Type Department Care Team (Late st Contact Info) Description 04/03/2024 Orders Only [facility] [address] [place] [address] Car Mcdonald MD [address] [place] [address] [place] [address] Social History Tobacco Use Types Packs/Day Years [...] x 3 28.5(L) 42.0 - 54.0 % [facility] 04/03/2024 04/04/2024 8:1 6 AM EST Narrative [facility] - 04/04/2024 Unless otherwise specified, test(s) performed at: [facility], [address] [place] [address] TELEPHONE REPAIRER: Homero Garcia M.D. For any questions, please call customer service at FREQUENCY:OTHER Resulting Agency Comment Specimen source: Blood us Car Mcdonald MD LAB BLOOD ORDERABLES Final Re sult [facility] See order comments or contact performing lab Unknown, [place] documented in this encounter Visit Diagnoses Not on filedocumented in this encounter Care Teams Head Orthopedic Team Physician Relationship Specialty Start Date End Date Jade Lewis MD [address] [place] [address] PCP - General Internal Medicine 04/25/22 documented as of this encounter
--- OUTSIDE RECORDS SUMMARY | 2024-05-01 19:51 | XMS_ITS | Encounter Summary ---
Author Organization [facility], Address [address] [place] [address] Phone Care Team Providers Care Dot Net Developer Name Role Phone Jade Lewis MD Primary Care Provider + [phone] Reason for Visit * Reason Comments Med Refill Encounter Details Date Type Department Care Team ([facility] st Contact Info) Description 11/27/2020 Refill [facility] [address] [place] [phone] Alejandro Santana MD [address] [place] [phone] Social History Tobacco Use Types Packs/Day Years [...] on filedocumented in this encounter Care Teams Dot Net Developer Relationship Specialty Start Date End Date Jade Lewis MD [address] [place] [address] PCP - General Internal Medicine 04/25/22 documented as of this encounter
--- OUTSIDE RECORDS SUMMARY | 2024-05-01 19:51 | XMS_ITS | Encounter Summary ---
Author Organization [facility] Address [address] [place] [address] Phone Care Team Providers Care Application Designer Name Role Phone Jade Lewis MD Primary Care Provider + [phone] Reason for Visit * Reason Comments Med Refill Encounter Details Date Type Department Care Team (Late st Contact Info) Description 07/23/2021 Refill [facility] [address] [place] [phone] Alejandro Santana MD [address] [place] [phone] Social History Tobacco Use Types Packs/Day Years [...] filedocumented in this encounter Care Teams Application Designer Relationship Specialty Start Date End Date Jade Lewis MD [address] [place] [address] PCP - General Internal Medicine 04/25/22 documented as of this encounter
--- OUTSIDE RECORDS SUMMARY | 2024-05-01 19:51 | XMS_ITS | Clinical Summary ---
Author Organization [facility] Address [address] [place] [address] Phone Care Team Providers Care Wrist Liner Name Role Phone Jade Lewis MD Primary Care Provider + [phone] Allergies Active Allergy Reactions Criticality Noted Date [...] FOR WHEEZING 1 Active ergocalciferol 1.25 MG (07946 UT) capsule Take 1 capsule (50,000 Units total) by mouth 1 (one) time per week 4 capsule 5 1 Active cetirizine (ZyrTEC) 10 MG tablet Take 10 mg by mouth 1 (one) time each day Active Fluticasone-Salm eterol 100-50 MCG/ACT aerosol powder [facility] - [place], [place] - [id number] [place] [phone] 60.00 Each 5 30 INHALE 1 PUFF [...] mouth daily. Prescribed by Dr. Car Mcdonald (metal rolling mill operator). 2 Active aspirin (ST ANITRA) 81 MG [...] asthma 03/31/2022 Overview (09/15/2022): 08/19/21 Eval at [facility]. Increase Advair to 100/50 F/u 6 months. 05/24/22 Eval at [facility], Dr Funez. Recommends Trelegy once daily. Plan for sleep study to assess need for CPAP. 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 Permacath for dialysis removed and a new one replaced. Will get cefazolin x 4 weeks after dialysis. Lantus decreased to 30 units. Pt to continue on Eliquis for the next few weeks until his AV fistula is ready for utilization. Abdominal pain 03/19/2021 Bacteremia 03/19/2021 Venous thrombosis 01/04/2021 Overview (01/26/2021): 12/13/20-12/19/20 Admitted to [facility] for non-occulsive thrombosis in R internal jugular vein. Acute embolism and thrombosis of left internal j ugular vein 12/21/2020 End stage renal failure on dialysis 11/19/2020 Overview (10/05/2021): [facility] Hypocalcemia 11/13/2020 Angina pectoris 11/09/2020 Coagulation defect 11/09/2020 Headache 11/09/2020 Type 2 diabetes mellitus with diabetic nephropat hy 11/09/2020 Edema 09/28/2020 Iron deficiency anemia 12/24/2019 Chronic kidney disease stage 4 02/19/2019 Anemia in chronic kidney disease 02/19/2019 History of colonoscopy 03/30/2016 Overview (01/26/2021): Approximately 2010 in [place] per Pt 11/24/20 Eval at [facility], recommend colonoscopy. Resolved Problems Problem [...] diabetes mellitus 06/12/2015 Overview (01/26/2021): Followed by [facility]. Last visit 06/23/15, HbA1c = 11.1%. Has diabetic nephropathy, retinopathy, and peripheral neuropathy. Switched to Novolin 70/30. Taking 23 units TID with meals, may titrate up/down depending on BG readings over the next few days. They are trying to submit PA for Lyrica. 04/27/16 F/u with Estefani Kaur DO at [facility]. Titrate Novolog 70/30 to 22 units with breakfast, 30 units with dinner. If no improvement or if ongoing hypoglycemia will consider switchign to Levemir and Humalog; F/u 3 months 11/03/20 F/u [facility]. A1c > 12% Continue Lanuts 52 and Humalog 4-8 untsi with meals. Consider using NPH during peritoneal dialysis Encounters Date Type Department Care Team Description 2024 Orders Only [facility] [address] [address] Car Mcdonald MD 2024 Treatment [facility], [address] [place] [address] Arely Hernández APRN 04/24/2024 Orders Only [facility] [address] [address] Car Mcdonald MD 04/22/2024 Orders Only [facility] [address] [address] Car Mcdonald MD 04/19/2024 Orders Only [facility] [address] [address] Car Mcdonald MD 04/19/2024 Treatment [facility] [place] [address] Arely Hernández, DIRECTOR MEDICAL AFFAIRS 04/05/2024 Treatment [facility] [place] [address] Arely Hernández, DIRECTOR MEDICAL AFFAIRS 04/03/2024 Orders Only [facility] [address] [address] Car Mcdonald MD 04/01/2024 Treatment [facility] [place] [address] Malcolm Taylor MD 03/29/2024 Orders Only [facility] [address] [address] Car Mcdonald MD 03/15/2024 Treatment [facility] [address] [place] [address] Malcolm Taylor MD 03/13/2024 Orders Only [facility] [address] [address] Car Mcdonald MD 03/08/2024 Orders Only [facility] [address] [address] Car Mcdonald MD 03/01/2024 Treatment [facility] [address] [place] [address] Malcolm Taylor MD 03/01/2024 Orders Only [facility] [address] [address] aCr Mcdonald MD 02/23/2024 Treatment [facility] [address] [place] [address] Arely Hernández, DIRECTOR MEDICAL AFFAIRS 02/21/2024 Orders Only [facility] [address] [address] Car Mcdonald MD 02/19/2024 Treatment [facility] [address] [place] [address] Arely Hernández, DIRECTOR MEDICAL AFFAIRS 02/14/2024 Orders Only [facility] [address] [address] Car Mcdonald MD 02/12/2024 Orders Only [facility] [address] [place] [address] Kevin, Izaiah Ordering 02/09/2024 Treatment [facility], [address] [place] [address] Arely Hernández, DIRECTOR MEDICAL AFFAIRS 02/02/2024 Treatment [facility], [address] [place] [address] Malcolm Taylor MD 01/31/2024 Orders Only [facility] [address] [address] Car Mcdonald MD from Last 3 Months [...] at 66 Diabetes Mother Heart disease Mother CT Stroke Mother grandfather Hypertension Sibling 1 Kidney [...] Urea Reduction 64(L) 65 - 80 % [facility] 2024 04/27/2024 12: 06 PM EST Narrative [facility] - 04/27/2024 Unless otherwise specified, test(s) performed at: [facility], [address] [place], [place] [id number] TELEPHONE PLANT POWER OPERATOR: Homero Garcia M.D. For any questions, please call customer service at FREQUENCY:OTHER Resulting Agency Comment Specimen source: Plasma Car Mcdonald MD LAB BLOOD ORDERABLES Final Re sult Performing Organization Address [facility] de Phone Number [facility] See order comments or contact performing lab Unknown, [place] * (ABNORMAL) POST CHEMISTRY (2024) Only the most recent of5 resultswithin the time period is included. BUN Post Dialysis 30(H) 6 - 19 mg/dL [facility] 2024 04/27/2024 12: 06 PM EST Narrative [facility] - 04/27/2024 Unless otherwise specified, test(s) performed at: [facility], [address] [place] [address] TELEPHONE PLANT POWER OPERATOR: Homero Garcia M.D. For any questions, please call customer service at FREQUENCY:OTHER Resulting Agency Comment Specimen source: Plasma Car Mcdonald MD LAB BLOOD ORDERABLES Final Re sult Performing Organization Address [facility] de Phone Number [facility] See order comments or contact performing lab Unknown, [place] * (ABNORMAL) [facility] Chemistry (2024) Only the most recent of10 resultswithin the time period is included. BUN 83(H) 6 - 19 mg/dL [facility] 2024 04/27/2024 11: 43 AM EST Narrative [facility] - 04/27/2024 Unless otherwise specified, test(s) performed at: [facility], [address] [place] [id number] TELEPHONE PLANT POWER OPERATOR: Homero Garcia M.D. For any questions, please call customer service at FREQUENCY:OTHER Resulting Agency Comment Specimen source: Serum Car Mcdonald MD LAB BLOOD ORDERABLES Final Re sult Performing Organization Address [facility] de Phone Number [facility] See order comments or contact performing lab Unknown, [place] * [facility] Results (2024) Only the most recent of4 resultswithin the time period is included. Pathologist [facility] spKt/V (Daugirdas II) 1.12 [facility] eKdrt/V 0.85 [facility] WSTDKT/V 2.1 [facility] nPCR_HD 1.21 [facility] spKt/V Gotch 1.14 [facility] [place] eKt/V Gotch 0.85 [facility] e Center PCR 77.04 [facility] eKt/V ([place]) 0.88 [facility] eNPCR 1.05 [facility] 2024 2024 [facility] Ordering Provider LAB BLOOD ORDERABLES Final Result [facility] Contact Performing lab Unknown, [place] * (ABNORMAL) HEMATOLOGY (04/24/2024) Only the most recent of10 resultswithin the time period is included. [facility] Hemoglobin 9.9(L) 14.0 - 18.0 g/dL [facility] Hemoglobin x 3 29.7(L) 42.0 - 54.0 % [facility] 04/24/2024 04/25/2024 9:3 0 AM EST Narrative [facility] - 04/25/2024 Unless otherwise specified, test(s) performed at: [facility], [address] [place] [address] TELEPHONE PLANT POWER OPERATOR: Homero Garcia M.D. For any questions, please call customer service at FREQUENCY:OTHER Resulting Agency Comment Specimen source: Blood Car Mcdonald MD LAB BLOOD ORDERABLES Final Re sult Pure [employer] [facility] See order comments or contact performing lab Unknown, [place] * IMMUNO CHEMISTRY (04/19/2024) Only the most recent of3 resultswithin the time period is included. Pathologist [facility] Hep B Surface Ag Negative Negative [facility] 04/19/2024 04/20/2024 12: 30 PM EST Narrative [facility] - 04/20/2024 Unless otherwise specified, test(s) performed at: [facility], [address] [place], [place] [id number] TELEPHONE PLANT POWER OPERATOR: Homero Garcia M.D. For any questions, please call customer service at FREQUENCY:MONTHLY Resulting Agency Comment Specimen source: Serum Car Mcdonald MD LAB BLOOD ORDERABLES Final Re sult Performing Organization Address [facility]/ZIP Co de Phone Number [facility] See order comments or contact performing lab Unknown, [place] * (ABNORMAL) SPECIAL CHEMISTRY (03/08/2024) Hemoglobin A1C 7.9(H) 4.8 - 5.9 % [facility] 03/08/2024 03/09/2024 10: 45 AM EST Narrative Resulting Agency Comment Specimen source: Blood Car Mcdonald MD LAB BLOOD BANK TEST ORDERABLE S Final Result Performing Organization Address [facility] de Phone Number [facility] See order comments or contact performing lab Unknown, [place] from Last 3 Months Insurance [place]ICAID [place] [employer] [place] [facility] [place]ARE [place] Care Teams Wrist Liner Relationship Specialty Start Date End Date Jade Lewis MD [address] [place] [address] PCP - General Internal Medicine 04/25/22
--- OUTSIDE RECORDS SUMMARY | 2024-05-01 19:51 | XMS_ITS | Encounter Summary ---
Author Organization [facility], Address [address] [place] [address] Phone Care Team Providers Care Test Engine Operator Name Role Phone Jade Lewis MD Primary Care Provider + [phone] Reason for Visit * Reason Comments Med Refill Encounter Details Date Type Department Care Team (Late st Contact Info) Description 10/27/2023 Refill [facility] [address] [place] [phone] Malcolm Taylor MD [address] [place] [address] [place] [address] Social History Tobacco Use Types Packs/Day Years [...] on filedocumented in this encounter Care Teams Test Engine Operator Relationship Specialty Start Date End Date Jade Lewis MD [address] [place] [address] PCP - General Internal Medicine 04/25/22 documented as of this encounter
--- OUTSIDE RECORDS SUMMARY | 2024-05-01 19:51 | XMS_ITS | Encounter Summary ---
Author Organization [facility], Address [address] [place] [address] Phone Care Team Providers Care Lead Refiner Name Role Phone Jade Lewis MD Primary Care Provider + [phone] Reason for Visit * Reason Comments Med Refill Encounter Details Date Type Department Care Team ([facility] st Contact Info) Description 10/18/2023 Refill [facility] [address] [place] [phone] Malcolm Taylor MD [address] [place] [address] [place] [phone] Social History Tobacco Use Types Packs/Day Years [...] 10/19/2023 Unless otherwise specified, test(s) performed at: [facility], [address] [place] [address] PRODUCTION CONTROL COORDINATING CLERK: Homero Garcia M.D. For any questions, please call customer service at FREQUENCY:OTHER Resulting Agency Comment Specimen source: Blood us Car Mcdonald MD LAB BLOOD ORDERABLES Final Re sult [facility] See order comments or contact performing lab Unknown, [place] documented in this encounter Visit Diagnoses Not on filedocumented in this encounter Care Teams Lead Refiner Relationship Specialty Start Date End Date Jade Lewis MD [address] [place] [address] PCP - General Internal Medicine 04/25/22 documented as of this encounter
--- NOTE | 2024-05-01 20:23 | PHA.MEDREC ---
Addendum entered by Jaime Rehman [facility] 05/01/24 20:43: Med rec reviewed Original Note: Pharmacy Consult ? Medication Reconciliation Pharmacy has completed the medication reconciliation. Patient and son are poor historians. Utilized claims and Discharge packet from 04/18/24 to confirm med list.
[2024-05-01 21:03] LABS: Thyroid Stimulating Hormone 0.61 uIU/mL (0.32-4.0)
--- NOTE | 2024-05-01 21:43 | PM.IMHP ---
History of Present Illness Date of Service: 05/01/24 Attending physician on admission: Ashli Junior Chief Complaint: Rash and discolored finger and toes Pt is a 69-year-old male with a PMH significant for?ESRD on HD M/W/F last dialyzed earlier today, insulin-dependent type 2 diabetes, peripheral vascular disease, s/p right BKA 04/[address] Cannon, HFrEF, HTN, HLD, chronically on 2L home O2, GERD, and ROBERT on CPAP who presents to the ED with?rash x2 days. Pt reports rash began on his left knee and the back of his upper left arm. Saw vascular surgery yesterday for follow up appointment for BKA and had francisco removed the sutures remained intact. Last night rash began to spread to back, belly, groin, and down leg legs and arms, worsening this morning. Rash is neither itching or painful. Pt himself did not initially notice it until family member point in and out and encouraged him to come to the ED for further evaluation. Pt complains of pain in right stump and reports he has not been taking much pain medication for it at home. Denies any other systemic symptoms. No fever, chills, nausea, vomiting, abdominal pain. Denies chest pain/pressure, palpitations. Chronic SOB at baseline. No increased difficulty breathing or cough.. In the ED pt was hypertensive up to 162/121, vitals otherwise stable and WNL. Labs were significant for ESR 92, glucose 424, and CRP 19.06. Stable microcytic anemia of 9.2/28.5. No significant electrolyte abnormalities. Renal function baseline with creatinine 5.66. Lactic acid WNL at 1.2. Alk-phos chronically elevated at 232. TSH WNL at 0.61. CT of chest showed new large pericardial effusion and right pleural effusion with pleural thickening and right lower and middle lobe consolidations, similar to prior. CT of abdomen and pelvis found 1.3 cm right iliac lymph node and nodular contour of liver concerning for cirrhosis, otherwise negative for acute abdomen. ED clinician contacted Dr. Cannon who did not think that rash was secondary to vasculitis. The ED then contacted ID who had concerns for possible septic emboli from aorta and recommended getting imaging and starting pt on empiric antibiotics. ED then contacted Cardiology due to pericardial effusion suggested making pt NPO, getting echo, and checking inflammatory markers. Pt was treated with Vanc and c.efazolin. Pt will be admitted to the hospital for treatment and further evaluation of new pericardial effusion and diffuse rash concerning for septic emboli vs vasculitis. Review of Systems Review of Systems: Negative except for that which is stated in the [facility] Medical History Right sided weakness ESRD needing dialysis Dehiscence of wound Peripheral arterial disease Cellulitis of right foot Hypertension Dry gangrene HFrEF (heart failure with reduced ejection fraction) ESRD (end stage renal disease) Chronic combined systolic and diastolic CHF (congestive heart failure) Chronic pericardial effusion Arthritis Asthma Restless leg syndrome Acute on chronic systolic and diastolic heart failure, NYHA class 3 Anemia ESRD (end stage renal disease) Occlusive thrombus Pulmonary edema ROBERT (obstructive sleep apnea) Type 2 diabetes mellitus Hyperlipidemia Hypertension A-V fistula ESRD on dialysis Falling Family History Father No problems noted. Mother No problems noted. Surgical History Hx of right BKA Status post transmetatarsal amputation of right foot History of transmetatarsal amputation of foot History of surgery H/O colonoscopy Recurrent pleural effusion Pleural effusion on right (07/13/23) Social History Household Members: Children Household Members Other:: son Housing: Apartment Are you a primary home health care worker to a significant other at home: No Do you presently have visiting nurse or other home services: No Alcohol intake: never Comment: counts correct Patient Tobacco Use Status: Former Tobacco user Tobacco use type: Cigarette Second Hand Smoke Exposure: No Advance Directives: Yes Advance Directives on File: Yes Advance Directives Date on File: 04/13/23 service: No Meds Allergies Allergy/AdvReac Type Severity Reaction Status Date / Time Iodinated Contrast Media Allergy Severe Facial Verified 05/01/24 16:21 [Contrast Dye] Swelling Active Medications: Current Medications Acetaminophen (Acetaminophen 325 Mg Tablet) 650 mg PO Q6H PRN PRN Reason: Pain, Mild 1-3,fever,headache Calcium Carbonate (Calcium Carbonate 750 Mg Tab.Chew) 750 mg PO Q4H PRN PRN Reason: Heartburn Ceftriaxone Sodium (Ceftriaxone Sodium 1 Gm Vial) 1 gm IVPUSH Q24H NASREEN Dextrose (Dextrose 50 % 25 Gm/50 Ml Syringe) 25 gm IVPUSH Q15M PRN; Protocol PRN Reason: per Hypoglycemia Standing Ord. Glucose (Glucose Gel 15 Gm Gel..Gram.) 15 gm PO Q15M PRN; Protocol PRN Reason: per Hypoglycemia Standing Ord. Insulin Human Lispro (Insulin Lispro 100 Unit/Ml 3 Ml Vial) 0 unit SUBCUT Q6H NASREEN; Protocol Magnesium Hydroxide (Milk Of Magnesia 30 Ml Oral.Susp) 30 ml PO DAILY PRN PRN Reason: Constipation Melatonin (Melatonin 3 Mg Tablet) 6 mg PO BEDTIME PRN PRN Reason: Insomnia Ondansetron HCl (Ondansetron Hcl 4 Mg/2 Ml Vial) 4 mg IVPUSH Q8H PRN PRN Reason: Nausea and Vomiting Pharmacy Consult (Consult Rx Vancomycin Dosing) 1 each MISCELLANE DAILY PRN PRN Reason: Consult order Sodium Chloride (0.9 % Sodium Chloride Flush 3 Ml Syringe) [facility] Medications ?Medication ?Instructions ?Recorded ?Confirmed ?Last Taken ?Type albuterol sulfate 90 mcg/actuation 2 puff inhalation Q4H PRN 04/19/22 05/01/24 03/05/24 History aerosol inhaler Shortness Of Breath allopurinol 100 mg tablet 100 mg PO MOWEFR@1600 04/19/22 05/01/24 03/18/24 History atorvastatin 40 mg tablet 40 mg PO SUTUTHSA@0900 04/19/22 05/01/24 03/19/24 History doxazosin 4 mg tablet 4 mg PO BEDTIME 04/19/22 05/01/24 03/18/24 History furosemide 80 mg tablet 80 mg PO SUTUTHSA@0900 04/19/22 05/01/24 03/19/24 History ipratropium 0.5 mg-albuterol 3 mg 3 ml inhalation QID PRN Wheezing 04/19/22 05/01/24 Unknown History (2.5 mg base)/3 mL nebulization soln omeprazole 20 mg capsule,delayed 20 mg PO DAILY@0630 04/19/22 05/01/24 03/19/24 History release insulin lispro 100 unit/mL 1 sliding scale dose subcut TIDAC 0205/01/24 03/18/24 History subcutaneous pen aspirin 81 mg tablet,delayed 81 mg PO SUTUTHSA@09 06/20/23 05/01/24 03/19/24 History release pregabalin 75 mg capsule 75 mg PO SUTUTHSA@09,15,21 06/20/23 05/01/24 03/19/24 History hydralazine 25 mg tablet 25 mg PO SUTUTHSA@,15,21 01/24/24 05/01/24 03/19/24 History sucroferric oxyhydroxide 500 mg 500 mg PO TID 01/24/24 05/01/24 03/19/24 History chewable tablet (Velphoro) acetaminophen 325 mg tablet 650 mg PO Q4H PRN PAIN/FEVER 04/05/24 05/01/24 Unknown History aspirin 81 mg tablet,delayed 81 mg PO MOWEFR@159904/05/24 05/01/24 Unknown History release atorvastatin 40 mg tablet 40 mg PO MOWEFR@159904/05/24 05/01/24 Unknown History bisacodyl 10 mg rectal suppository 10 mg IN DAILY PRN Constipation 04/05/24 05/01/24 Unknown History (Dulcolax (bisacodyl)) carvedilol 6.25 mg tablet 6.25 mg PO BID 04/05/24 05/01/24 Unknown History fluticasone fur. 100 mcg-umeclid 1 inh inhalation DAILY 04/05/24 05/01/24 Unknown History 62.5 mcg-vilant 25 mcg inhalat.powder (Trelegy Ellipta) furosemide 80 mg tablet 80 mg PO MOWEFR@1600 04/05/24 05/01/24 Unknown History hydralazine 25 mg tablet 25 mg PO MOWEFR@1600 04/05/24 05/01/24 Unknown History losartan 25 mg tablet 25 mg PO MOWEFR@1600 04/05/24 05/01/24 Unknown History losartan 25 mg tablet 25 mg PO SUTUTHSA@0900 04/05/24 05/01/24 Unknown History oxycodone 5 mg tablet 5 mg PO Q6H PRN pain 04/05/24 05/01/24 Unknown History pregabalin 75 mg capsule 75 mg PO MOWEFR@159904/05/24 05/01/24 Unknown History sennosides 8.6 mg tablet (senna) 8.6 mg PO DAILY PRN Constipation 04/05/24 05/01/24 Unknown History insulin glargine 100 unit/mL (3 22 unit subcut BEDTIME 05/01/24 05/01/24 Unknown History mL) subcutaneous pen (Lantus Solostar U-100 Insulin) Physical Exam Vital Signs and Narrative: Vital Signs: Last Vital Signs Temp 98.7 F 05/01/24 19:48 Pulse 77 05/01/24 19:48 Resp 16 05/01/24 19:48 BP 142/64 H 05/01/24 19:48 Pulse Ox 99 05/01/24 19:48 O2 Del Method Room Air 05/01/24 19:48 Oxygen Flow Rate 2 05/01/24 16:16 BMI result Body Mass Index 29.1 General: AOx3, no acute distress Resp: CTA bilaterally CVS: S1, S2, RRR GI: +BS, NT, no distention Skin: Diffuse non-blanchable, mostly flat erythematous rash with largest areas of confluence on left flank, upper arm, and knee. Right third digit with distal discoloration. As pictured below. Neuro: Cranial nerves II-XII grossly intact bilaterally. Motor grossly intact bilaterally Extremities: No edema. S/P right BKA with clean dressing on. Psych: Appropriate affect Results Labs 05/01/24 16:51 05/01/24 16:51 Labs: Laboratory Results - last 24 hr 05/01/24 16:51 MCV 76.4 L MCH 24.7 L MCHC 32.3 RDW 18.1 H Plt Count 355 MPV 11.8 Immature Gran % (Auto) 1.0 H Neut % (Auto) 84.5 H Lymph % (Auto) 8.1 L Beauregard % (Auto) 5.3 Eos % (Auto) 0.9 Baso % (Auto) 0.2 Lymph # (Auto) 0.7 L Beauregard # (Auto) 0.5 Eos # (Auto) 0.1 Baso # (Auto) 0.0 Abs Immat Gran (auto) 0.09 H Absolute Neuts (auto) 7.4 Absolute Nucleated RBC 0.000 Nucleated RBC % (auto) 0.0 ESR 92 H PT 15.2 H INR 1.3 H Anion Gap 18 Estim Creat Clear Calc 12.1 Estimated GFR 10 Random Glucose 424 H* Lactic Acid 1.2 Calcium 8.5 Total Bilirubin 0.4 AST 29 ALT 19 Alkaline Phosphatase 232 H C-Reactive Protein 19.06 H Total Protein 7.7 Albumin 3.1 L Lipase 55 TSH 0.61 Assessment and Plan (1) Acute pericardial effusion: Status: Acute (2) Rash: Status: Acute Plan Pt is a 69-year-old male with a PMH significant for?ESRD on HD M/W/F last dialyzed earlier today, insulin-dependent type 2 diabetes, peripheral vascular disease, s/p right BKA 04/[address] Cannon, seizure disorder, HFrEF, HTN, HLD, chronically on 2L home O2, GERD, and ROBERT on CPAP who presents to the ED with?rash x2 days. Pt will be admitted to the hospital for treatment and further evaluation of new pericardial effusion and diffuse rash concerning for septic emboli vs vasculitis. Rash Pt with diffuse erythematous, mostly flat rash on extremities, abdomen, torso, groin, and fingers and toes Inflammatory markers elevated, TSH WNL Unclear etiology: Concerning for septic emboli vs vasculitis, among others on the differential No sepsis: No SIRS criteria Will empirically cover with vancomycin and cefazolin, started 05/01/2024 Will check ANCA vasculitides Follow blood cultures Pericardial effusion CTA of chest found new large pericardial effusion Echocardiogram NPO past midnight Cardiology consult Monitor on telemetry Follow pericardial fluid labs ESRD on HD M/W/F Last dialyzed earlier today Electrolytes without significant abnormalities Nephrology consult Continue Velphoro, Lasix Insulin-dependent type 2 diabetes Sliding-scale insulin, Lantus Diabetic diet Seizure disorder Continue Keppra HLD/PAD Hold aspirin due to possible procedure Continue statin HTN Continue carvedilol, hydralazine, losartan Peripheral neuropathy Continue pregabalin Full Code Attending:?Dr. Junior DVT Prophylaxis: Pneumatic compression due to possible surgical intervention Pt will require a hospitalization of at least two nights for treatment of?acute pericardial effusion and diffuse rash concerning for vasculitis vs septic emboli. Pt will require hospital level care for administration of empiric IV antibiotics, close monitoring of labs and cardiac function, and specialist consultation with Cardiology. Quality Stroke Does the patient have a stroke diagnosis?: No VTE Prior VTE?: No VTE Risk Level:: Medical - moderate - high VTE Device Contraindication: N/A - Device Ordered VTE Drug Contraindication: Treatment Not Indicated
[2024-05-01] MEDS: Melatonin 3 MG TABLET 9 MG PO (22:10)
[2024-05-01] MEDS: cefTRIAXone sodium 1 GM VIAL IVPUSH (22:20)
[2024-05-01] MEDS: Insulin Glargine,Hum.rec.anlog 100 UNIT/ML 10 ML VIAL 10 UNIT SUBCUT (22:20)
[2024-05-01] MEDS: Insulin Regular, Human 100 UNIT/ML 10 ML VIAL 10 UNIT IVPUSH (22:33)
[2024-05-01 23:09] VITALS: PULSE 77
[2024-05-01] MEDS: carvediloL 6.25 MG TABLET PO (23:09)
[2024-05-01] MEDS: Doxazosin Mesylate 2 MG TABLET 4 MG PO (23:09)
[2024-05-01 23:11] VITALS: BP 130/81; PULSE 78; RESP 16; TEMP 36.7; O2SAT 99
[2024-05-01 23:17] VITALS: RESP 16
[2024-05-01] MEDS: Morphine Sulfate 2 MG/ML CARTRIDGE IVPUSH (23:17)
[2024-05-01] MEDS: Insulin Lispro 100 UNIT/ML 3 ML VIAL SUBCUT (23:17)
[2024-05-01] MEDS: levETIRAcetam 500 MG TABLET PO (23:26)
[2024-05-01 23:31] LABS: Glucose, Whole Blood 335 mg/dL (60-115)
[2024-05-02] VITALS (13 sets, daily range): BP systolic 131–160; BP diastolic 58–83; PULSE 62–101; RESP 12–18; TEMP 36.5–37; O2SAT 95–100
[2024-05-02] MEDS: Zolpidem Tartrate 5 MG TABLET PO (01:23)
[2024-05-02] MEDS: oxyCODONE HCl Immed Release 5 MG TABLET PO (01:23)
[2024-05-02] MEDS: Dextrose 50 % 25 GM/50 ML SYRINGE IVPUSH (03:57)
[2024-05-02 04:22] LABS: Glucose, Whole Blood 53 mg/dL (60-115)
[2024-05-02 04:22] LABS: Glucose, Whole Blood 148 mg/dL (60-115)
--- NOTE | 2024-05-02 04:27 | PC.NURSE ---
pt awoke to voice. appears uremic/lethargic, unable to clearly answer questions or follow commands. POC glucose found to be 53. gave dextrose IVP with BG improving to 148. pt mentation improved evidenced by improvement in vocal clarity per lead android developer and ability to follow simple instructions during routine care and BKA dressing change. MD Junior made aware. no further orders or intervention. call montilla in reach.
[2024-05-02 04:57] LABS: Hematocrit 26.6 % (42.0-52.0); Hemoglobin 8.2 g/dl (14.0-18.0); Mean Corpuscular HGB Conc 30.8 g/dl (31.0-36.0); Mean Corpuscular Hemoglobin 23.7 pg (27.0-33.0); Mean Corpuscular Volume 76.9 fL (80.0-98.0); Platelet Count 304 X10*3/uL (160-400); Red Blood Count 3.46 X10*6/uL (4.60-5.80); White Blood Count 9.8 X10*3/uL (4.8-10.8)
[2024-05-02 05:15] LABS: Alanine Aminotransferase 11 U/L (0-40); Albumin Level 2.9 g/dL (3.5-5.0); Alkaline Phosphatase 197 U/L (39-117); Anion Gap 21 (12-20); Aspartate Amino Transferase 23 U/L (5-37); Bilirubin Total 0.5 mg/dL (0.0-1.0); Blood Urea Nitrogen 64 mg/dL (9-16); Calcium 8.2 mg/dL (8.4-10.2); Carbon Dioxide 23 mmol/L (22-29); Chloride 99 mmol/L (96-108); Estimated Glomerular Filt Rate 9; Glucose Random 149 mg/dL (60-115); Potassium 4.3 mmol/L (3.3-5.1); Sodium 139 mmol/L (135-145); Total Protein 7.1 g/dL (6.5-8.0)
--- NOTE | 2024-05-02 07:00 | CA_ITS ---
Transthoracic Echocardiogram Patient (Last, First, Middle): Beau Marie A Gender: Male Date of : 1955 Age: 69 Procedure Date: 05/02/2024 Procedure Type: Transthoracic Echocardiogram Location: ER Height: 165.1 cm Weight: 79.38 kg BSA: 1.87 m2 Heart Rate: bpm BP: 156 / 82 mmHg Bench Assembler Operator: TO Referring MD: Ashli Junior MD Symptoms: pericardial effusion Study Quality: Fair, contrast Conclusions: - Normal left ventricular cavity size. There is moderately increased left ventricular wall thickness. The left ventricular systolic function is moderate to severely decreased. The visually estimated ejection fraction is between 25-30%. - Elevated filling pressures. - Normal right ventricular cavity size. There is severely decreased right ventricular systolic function. - [id number] size circumferential pericardial effusion noted. There is increased respiratory variation across the mitral and tricuspid valve with plethoric IVC. The patient also has severe biventricular dysfunction. Can not rule out early tamponade physiology. Findings Procedure Information Contrast agent, definity, is being given per protocol without apparent complications. Left Ventricle Normal left ventricular cavity size. There is moderately increased left ventricular wall thickness. The left ventricular systolic function is moderate to severely decreased. The visually estimated ejection fraction is between 25-30%. Abnormal diastolic function is noted. Elevated filling pressures. Right Ventricle Normal right ventricular cavity size. There is severely decreased right ventricular systolic function. Atria The left atrium is mildly dilated. Aortic Valve There is a normal trileaflet aortic valve. There is no aortic valve stenosis. There is no aortic valve regurgitation. Mitral Valve The mitral valve appears normal. There is no mitral valve regurgitation. There is no mitral valve stenosis. Pulmonic Valve The pulmonic valve is likely normal. Tricuspid Valve Normal tricuspid valve structure. There is trace tricuspid valve regurgitation. Significantly elevated right atrial pressure. There is no evidence of pulmonary hypertension. Great Vessels All visible segments of the aorta are normal in size. Venous The inferior vena cava is dilated and does not collapse with inspiration. Pericardium/Pleural [id number] size circumferential pericardial effusion noted. There is increased respiratory variation across the mitral and tricuspid valve with plethoric IVC. The patient also has severe biventricular dysfunction. Can not rule out early tamponade physiology. Prior Study Comparison Changes noted compared to prior study dated: 10/02/2023. Moderate to large pericardial effusion with early tamponade physiology. Severe biventricular function. Measurements 2D Linear Measurements IVSd: 1.39 0.6-0.9/0.6-1.0 cm LVIDd: 5.09 3.9-5.3/4.2-5.9 cm LVIDd Index: 2.72 2.4-3.2/2.2-3.1 cm/m2 LVIDs: 3.68 2.0-3.6 cm LVPWd: 1.32 0.7-1.1 cm LA Diam: 2.90 2.7-3.8/3.0-4.0 cm LAIDs Index: 1.55 1.5-2.3 cm/m2 LV Mass: 356.39 67-162/88-224 g LV Mass Index: 190.58 43-95/49-115 g/m2 LVOT Diam: 2.10 3.0+(-)1.3 cm 2D Systolic Function EF 4C: 36.90 >55% EF 2C: 31.00 >55% EF BiP: 33.30 >55% Mitral Valve MV Pk E: 0.62 MV PK A: 0.57 MV Decel Time: 204.00 E/A: 1.10 E'Lateral: 3.92 E'Medial: 3.48 E/E' Med: 17.80 E/E' Lat: 15.80 PHT: 60.00 MVA PHT: 3.67 Decel Hooker: 3.04 Aortic Valve AoV Pk Shayan: 1.42 AoV Mn Shayan: 0.91 AoV VTI: 0.23 AoV Pk Grad: 8.00 Aov Mn Grad: 4.00 MERI Cont.VTI: 1.91 LVOT LVOT Pk Shayan: 0.84 LVOT Mn Shayan: 0.47 LVOT VTI: 0.13 LVOT Pk Grad: 3.00 LVOT Mn Grad: 1.00 LVOT Diam: 2.10 LVOT Area: 3.46 Diastolic Function MV Pk E: 0.62 MV Pk A: 0.57 E/A: 1.10 E'Medial: 3.48 E/E' Med: 17.80 E' Laterial: 3.92 E/E' Lat: 15.80 Right Ventricle TAPSE (mm): 11.80 TVS' Shayan: 11.70 Tricuspid Valve TR Pk Shayan: 1.87 TR Pk Grad: 14.00 RA Press: 15.00 RVSP: 29.00 Great Vessels Aorta Sinus of Valsalva: 3.38 2.0-3.5 cm Ao Asc: 3.50 2.1-3.4 cm Updated in Other Vendor System with Status of Final Tim Lan MD electronically signed on 05/02/2024 1:59:38 PM with status of Final
[2024-05-02] MEDS: Fluticasone/Umeclidinium/Vilanterol 100/62.5/25 BLST.W.DEV 1 PUFF INHALE (08:06)
[2024-05-02] MEDS: 0.9 % Sodium Chloride Flush 3 ML SYRINGE IVFLUSH ×2 (08:28→14:54)
[2024-05-02] MEDS: levETIRAcetam 500 MG TABLET PO ×2 (08:29→20:52)
[2024-05-02] MEDS: carvediloL 6.25 MG TABLET PO ×2 (08:29→20:52)
[2024-05-02] MEDS: Atorvastatin Calcium 40 MG TABLET PO (08:29)
[2024-05-02] MEDS: Losartan Potassium 25 MG TABLET PO (08:30)
[2024-05-02] MEDS: Omeprazole 20 MG CAPSULE.DR PO (08:30)
[2024-05-02] MEDS: Furosemide 40 MG TABLET 80 MG PO (08:30)
[2024-05-02 09:49] LABS: Glucose, Whole Blood 95 mg/dL (60-115)
--- NOTE | 2024-05-02 10:38 | PC.NURSE ---
Pt sleeping this morning, wakes easily to verbal stimuli. Took most of his morning meds but refused the last two, went back to sleep. NSR on bedside monitor. Reporting he did not sleep much last night.
--- NOTE | 2024-05-02 10:41 | PC.NURSE ---
This RN reached out to dialysis, dialysis reported pt had dialysis yesterday (scheduled Mon/Mon/Mon), pt not due until tomorrow.
--- NOTE | 2024-05-02 10:56 | P.PNIM_ITS ---
Subjective Subjective Date of Service: 05/02/24 Interval History: Being followed for generalized rash/[id number]-[id number] pericardial effusion noted on echo. He denies chest pain, no palpitations, no shortness of breath, vitals stable. Patient denies itching, no fevers, no chills , no nausea, no vomiting, no abdominal pain, no confusion, complaining of pain left 3rd middle finger and 1st toe left foot Review of Systems All other system reviewed and are negative. Physical Exam 2 Vital Signs: Vital Signs: Last Vital Signs Temp 97.7 F 05/02/24 04:13 Pulse 68 05/02/24 08:29 Resp 17 05/02/24 08:10 BP 140/83 H 05/02/24 08:30 Pulse Ox 100 05/02/24 04:13 O2 Del Method Room Air 05/02/24 04:13 O2 Flow Rate 2 05/02/24 04:13 Oxygen Flow Rate 2 05/01/24 16:16 BMI result Body Mass Index 29.1 Const: Other: General lethargic ,in no acute distress. Neck supple no JVD. CVS regular rate rhythm, Respiratory lungs clear to auscultation, no respiratory distress, no wheeze, no rhonchi. Gastrointestinal abdomen soft, non tender, bowel sounds audible Extremities right BKA dressing in place Neuro non focal , speech clear. Skin non blanchable rash back, upper extremities, lower extremity/thigh, left 3rd distal phalanx middle finger and, left 1st toe purplish discoloration, tender to palpation, see picture admission note. Psych appropriate affect. Objective Data Active Medications Acetaminophen (Acetaminophen 325 Mg Tablet) 650 mg PO Q6H PRN PRN Reason: Pain, Mild 1-3,fever,headache Albuterol Sulfate (Albuterol Sulfate 90 Mcg 8 Gm Inhaler) 2 puff INHALE RQ4H PRN PRN Reason: Shortness Of Breath Albuterol/Ipratropium (Albuterol/Iprat 2.5/0.5mg 3 Ml Ampul.Neb) 3 ml INHALE RQID PRN PRN Reason: Wheezing Allopurinol (Allopurinol 100 Mg Tablet) 100 mg PO MOWEFR@1600 [facility] Atorvastatin Calcium (Atorvastatin Calcium 40 Mg Tablet) 40 mg PO MOWEFR@1600 [facility] Atorvastatin Calcium (Atorvastatin Calcium 40 Mg Tablet) 40 mg PO SUTUTHSA@0900 [facility] Last Admin: 05/02/24 08:29 Dose: 40 mg Documented By: SUSAN Bisacodyl (Bisacodyl 10 Mg Supp.Rect) 10 mg NE DAILY PRN PRN Reason: Constipation Calcium Carbonate (Calcium Carbonate 750 Mg Tab.Chew) 750 mg PO Q4H PRN PRN Reason: Heartburn Carvedilol (Carvedilol 6.25 Mg Tablet) 6.25 mg PO BID [facility]; Protocol Last Admin: 05/02/24 08:29 Dose: 6.25 mg Documented By: SUSAN Ceftriaxone Sodium (Ceftriaxone Sodium 1 Gm Vial) 1 gm IVPUSH Q24H [facility] Last Admin: 05/01/24 22:20 Dose: 1 gm Documented By: JOSE JUAN Dextrose (Dextrose 50 % 25 Gm/50 Ml Syringe) 25 gm IVPUSH Q15M PRN; Protocol PRN Reason: per Hypoglycemia Standing Ord. Last Admin: 05/02/24 03:57 Dose: 25 gm Documented By: JOSE JUAN Doxazosin Mesylate (Doxazosin Mesylate 2 Mg Tablet) 4 mg PO BEDTIME [facility]; Protocol Last Admin: 05/01/24 23:09 Dose: 4 mg Documented By: JOSE JUAN Fluticasone Propionate (Fluticasone Propionate Nasal 16 Gm [place]) 1 spray NOSTRIL-B BID [facility] Last Admin: 05/02/24 10:05 Dose: Not Given Documented By: SUSAN Non-Admin Reason: Patient Refused Fluticasone/Umeclidinium/Vilanterol (Fluticasone/Umeclidinium/Vilanterol 100/62.5/25 Blst.W.Dev) 1 puff INHALE RDAILY [facility] Last Admin: 05/02/24 08:06 Dose: 1 puff Documented By: ANNE Furosemide (Furosemide 40 Mg Tablet) 80 mg PO MOWEFR@1600 [facility]; Protocol Furosemide (Furosemide 40 Mg Tablet) 80 mg PO SUTUTHSA@0900 [facility]; Protocol Last Admin: 05/02/24 08:30 Dose: 80 mg Documented By: SUSAN Glucose (Glucose Gel 15 Gm Gel..Gram.) 15 gm PO Q15M PRN; Protocol PRN Reason: per Hypoglycemia Standing Ord. Hydralazine HCl (Hydralazine Hcl 25 Mg Tablet) 25 mg PO MOWEFR@1600 [facility]; Protocol Hydralazine HCl (Hydralazine Hcl 25 Mg Tablet) 25 mg PO SUTUTHSA@09,15,21 [facility]; Protocol Last Admin: 05/02/24 10:07 Dose: Not Given Documented By: SUSAN Non-Admin Reason: PT REFUSED ANY MORE PILLS Vancomycin HCl 500 mg/ Sodium (Chloride) 110 mls @ 110 mls/hr IV Q24H [facility] Insulin Glargine (Insulin Glargine,Hum.Rec.Anlog 100 Unit/Ml 10 Ml Vial) 17 unit SUBCUT BEDTIME [facility] Insulin Human Lispro (Insulin Lispro 100 Unit/Ml 3 Ml Vial) 0 unit SUBCUT Q6H [facility]; Protocol Last Admin: 05/02/24 10:06 Dose: Not Given Documented By: SUSAN Non-Admin Reason: No Insulin Coverage Levetiracetam (Levetiracetam 500 Mg Tablet) 500 mg PO BID [facility] Last Admin: 05/02/24 08:29 Dose: 500 mg Documented By: SUSAN Losartan Potassium (Losartan Potassium 25 Mg Tablet) 25 mg PO MOWEFR@1600 [facility]; Protocol Losartan Potassium (Losartan Potassium 25 Mg Tablet) 25 mg PO SUTUTHSA@0900 [facility]; Protocol Last Admin: 05/02/24 08:30 Dose: 25 mg Documented By: SUSAN Magnesium Hydroxide (Milk Of Magnesia 30 Ml Oral.Susp) 30 ml PO DAILY PRN PRN Reason: Constipation Melatonin (Melatonin 3 Mg Tablet) 6 mg PO BEDTIME PRN PRN Reason: Insomnia Morphine Sulfate (Morphine Sulfate 2 Mg/Ml Cartridge) 2 mg IVPUSH Q4H PRN; Protocol PRN Reason: Pain, Severe (Pain Scale 7-10) Last Admin: 05/01/24 23:17 Dose: 2 mg Documented By: JOSE JUAN Non-Formulary Medication (Sucroferric Oxyhydroxide [Velphoro]) 500 mg PO TID [facility] Omeprazole (Omeprazole 20 Mg Capsule.) 20 mg PO DAILY@0630 [facility] Last Admin: 05/02/24 08:30 Dose: 20 mg Documented By: SUSAN Ondansetron HCl (Ondansetron Hcl 4 Mg/2 Ml Vial) 4 mg IVPUSH Q8H PRN PRN Reason: Nausea and Vomiting Oxycodone HCl (Oxycodone Hcl Immed Release 5 Mg Tablet) 5 mg PO Q6H PRN PRN Reason: Pain, Moderate(Pain Scale 4-6) Last Admin: 05/02/24 01:23 Dose: 5 mg Documented By: JOSE JUAN Pharmacy Consult (Consult Rx Vancomycin Dosing) 1 each MISCELLANE DAILY PRN PRN Reason: Consult order Pregabalin (Pregabalin 75 Mg Capsule) 75 mg PO MOWEFR@1600 [facility] Pregabalin (Pregabalin 75 Mg Capsule) 75 mg PO SUTUTHSA@,, [facility] Last Admin: 05/02/24 10:08 Dose: Not Given Documented By: SUSAN Non-Admin Reason: PT REFUSED MORE PILLS, WENT TO SLEEP Senna (Sennosides 8.6 Mg Tablet) 8.6 mg PO DAILY PRN PRN Reason: Constipation Sodium Chloride (0.9 % Sodium Chloride Flush 3 Ml Syringe) 3 ml IVFLUSH QSHIFT [facility] Last Admin: 05/02/24 08:28 Dose: 3 ml Documented By: SUSAN Labs 05/02/24 04:21 05/02/24 04:21 Labs: Laboratory Results - last 24 hr 05/01/24 05/01/24 05/02/24 16:51 22:16 03:53 MCV 76.4 L MCH 24.7 L MCHC 32.3 RDW 18.1 H Plt Count 355 MPV 11.8 Immature Gran % (Auto) 1.0 H Neut % (Auto) 84.5 H Lymph % (Auto) 8.1 L Nelson % (Auto) 5.3 Eos % (Auto) 0.9 Baso % (Auto) 0.2 Lymph # (Auto) 0.7 L Nelson # (Auto) 0.5 Eos # (Auto) 0.1 Baso # (Auto) 0.0 Abs Immat Gran (auto) 0.09 H Absolute Neuts (auto) 7.4 Absolute Nucleated RBC 0.000 Nucleated RBC % (auto) 0.0 ESR 92 H PT 15.2 H INR 1.3 H Anion Gap 18 Estim Creat Clear Calc 12.1 Estimated GFR 10 POC Glucose 335 H 53 L* Random Glucose 424 H* Lactic Acid 1.2 Calcium 8.5 Total Bilirubin 0.4 AST 29 ALT 19 Alkaline Phosphatase 232 H C-Reactive Protein 19.06 H Total Protein 7.7 Albumin 3.1 L Lipase 55 TSH 0.61 05/02/24 05/02/24 05/02/24 04:16 04:21 09:46 MCV 76.9 L MCH 23.7 L MCHC 30.8 L RDW 18.0 H Plt Count 304 MPV 12.0 Immature Gran % (Auto) Neut % (Auto) Lymph % (Auto) Nelson % (Auto) Eos % (Auto) Baso % (Auto) Lymph # (Auto) Nelson # (Auto) Eos # (Auto) Baso # (Auto) Abs Immat Gran (auto) Absolute Neuts (auto) Absolute Nucleated RBC 0.000 Nucleated RBC % (auto) 0.0 ESR PT INR Anion Gap 21 H Estim Creat Clear Calc 11.0 Estimated GFR 9 POC Glucose 148 H 95 Random Glucose 149 H Lactic Acid Calcium 8.2 L Total Bilirubin 0.5 AST 23 ALT 11 Alkaline Phosphatase 197 H C-Reactive Protein Total Protein 7.1 Albumin 2.9 L Lipase TSH Assessment and Plan (1) Rash: Status: Acute Plan 69-year-old male with a PMH significant for?ESRD on HD M/W/F last dialyzed earlier today, insulin-dependent type 2 diabetes, peripheral vascular disease, s/p right BKA 04/[address] Cannon, seizure disorder, HFrEF, HTN, HLD, chronically on 2L home O2, GERD, and ROBERT on CPAP who presents to the ED with?rash x2 days. Pt will be admitted to the hospital for treatment and further evaluation of new pericardial effusion and diffuse rash concerning for septic emboli vs vasculitis. Generalized Rash noted 7-10 days ago ESR 92, CRP 19.06, trending down from 32.5 on April 05, 0.1 eosinophils ddx: Hydralazine induced vasculitis , systemic vasculitis , bacteremia /rule out septic emboli, cholesterol embolization syndrome had angiogram 2 months ago, small-vessel vasculitis, Anca associated, cryoglobulinemia Will check ANCA vasculitides, SAIDA, cold agglutinin, total complement, cryoglobulin, hepatitis serology, antihistone antibody, HIV, ds DNA, rheumatoid factor, PROCEDURES NURSE antibody Discontinue hydralazine, continue IV vancomycin and cefazolin, started 05/01/2024 One dose of empiric IV steroids given, since low suspicion for active infection, no fevers, no leukocytosis Follow blood cultures Echo showed no vegetations Moderate to severe Pericardial effusion CTA of chest showed new large pericardial effusion/right pleural effusion with pleural thickening and right lower and middle lobe consolidation similar to prior . Echocardiogram showed severe biventricular dysfunction and [id number] pericardial effusion Clinically no sinus symptoms of tamponade Thoracic surgery consultation for pericardial window Being followed by Cardiology NPO after midnight. Chronic hypoxic respiratory failure on 2 L of home oxygen/obstructive sleep apnea on CPAP No acute hypoxia. ESRD on HD M/W/F Electrolytes without significant abnormalities Nephrology consult Continue Velphoro, Lasix Chronic anemia hematocrit stable Insulin-dependent type 2 diabetes Low blood sugars, continue Sliding-scale insulin, hold Lantus since NPO after midnight Diabetic diet Seizure disorder Continue Keppra HLD/PAD Hold aspirin due to possible procedure, Continue statin HTN Continue carvedilol, losartan and DC hydralazine Peripheral neuropathy Continue pregabalin ROBERT cpap Full Code DVT Prophylaxis: Pneumatic compression due to possible surgical intervention Pt will require continued inpatient hospitalization for treatment of?acute pericardial effusion and diffuse rash concerning for vasculitis vs septic emboli, require expert consultation possible pericardial window, and monitoring of laboratory data, and hemodialysis, treatment can not be provided in less acute setting. Quality Stroke Does the patient have a stroke diagnosis?: No VTE Prior VTE?: No VTE Risk Level:: Medical - moderate - high VTE Device Contraindication: N/A - Device Ordered VTE Drug Contraindication: Treatment Not Indicated
--- NOTE | 2024-05-02 11:34 | PM.CNCAR ---
History of Present Illness History of Present Illness Date of Service: 05/02/24 Requesting physician: Lily Candelario Chief complaint: Rash, pericardial effusion Narrative: 69 male with PVD s/p right BKA, ESRD on HD (right chest wall permacath), HTN and h/o bacteremia presenting with rash on his leg and arm with concern for vasculitis. He had a CT chest done which has shown a large pericardial effusion. Clinically he is not in tamponade. He is denying any symptoms currently. [facility] Past Medical History Medical History Right sided weakness ESRD needing dialysis Dehiscence of wound Peripheral arterial disease Cellulitis of right foot Hypertension Dry gangrene HFrEF (heart failure with reduced ejection fraction) ESRD (end stage renal disease) Chronic combined systolic and diastolic CHF (congestive heart failure) Chronic pericardial effusion Arthritis Asthma Restless leg syndrome Acute on chronic systolic and diastolic heart failure, NYHA class 3 Anemia ESRD (end stage renal disease) Occlusive thrombus Pulmonary edema ROBERT (obstructive sleep apnea) Type 2 diabetes mellitus Hyperlipidemia Hypertension A-V fistula ESRD on dialysis Falling Family History Family History Father No problems noted. Mother No problems noted. Surgical History Surgical History Hx of right BKA Status post transmetatarsal amputation of right foot History of transmetatarsal amputation of foot History of surgery H/O colonoscopy Recurrent pleural effusion Pleural effusion on right (07/13/23) Social History Social History Household Members: Children Household Members Other:: son Housing: Apartment Are you a primary animal care supervisor to a significant other at home: No Do you presently have visiting nurse or other home services: No Alcohol intake: never Comment: counts correct Patient Tobacco Use Status: Former Tobacco user Tobacco use type: Cigarette Smoked in Last 30 Days: No Second Hand Smoke Exposure: No Use of substances other than those prescribed or required for medical reasons: No Advance Directives: Yes Advance Directives on File: Yes Advance Directives Date on File: 04/13/23 service: No Meds Allergies Allergy/AdvReac Type Severity Reaction Status Date / Time Iodinated Contrast Media Allergy Severe Facial Verified 05/01/24 16:21 [Contrast Dye] Swelling Active Medications: Current Medications Acetaminophen (Acetaminophen 325 Mg Tablet) 650 mg PO Q6H PRN PRN Reason: Pain, Mild 1-3,fever,headache Albuterol Sulfate (Albuterol Sulfate 90 Mcg 8 Gm Inhaler) 2 puff INHALE RQ4H PRN PRN Reason: Shortness Of Breath Albuterol/Ipratropium (Albuterol/Iprat 2.5/0.5mg 3 Ml Ampul.Neb) 3 ml INHALE RQID PRN PRN Reason: Wheezing Allopurinol (Allopurinol 100 Mg Tablet) 100 mg PO MOWEFR@1600 [place] Atorvastatin Calcium (Atorvastatin Calcium 40 Mg Tablet) 40 mg PO MOWEFR@1600 [facility] Atorvastatin Calcium (Atorvastatin Calcium 40 Mg Tablet) 40 mg PO SUTUTHSA@0900 [facility] Last Admin: 05/02/24 08:29 Dose: 40 mg Bisacodyl (Bisacodyl 10 Mg Supp.Rect) 10 mg MS DAILY PRN PRN Reason: Constipation Calcium Carbonate (Calcium Carbonate 750 Mg Tab.Chew) 750 mg PO Q4H PRN PRN Reason: Heartburn Carvedilol (Carvedilol 6.25 Mg Tablet) 6.25 mg PO BID [facility]; Protocol Last Admin: 05/02/24 08:29 Dose: 6.25 mg Ceftriaxone Sodium (Ceftriaxone Sodium 1 Gm Vial) 1 gm IVPUSH Q24H [facility] Last Admin: 05/01/24 22:20 Dose: 1 gm Dextrose (Dextrose 50 % 25 Gm/50 Ml Syringe) 25 gm IVPUSH Q15M PRN; Protocol PRN Reason: per Hypoglycemia Standing Ord. Last Admin: 05/02/24 03:57 Dose: 25 gm Doxazosin Mesylate (Doxazosin Mesylate 2 Mg Tablet) 4 mg PO BEDTIME [facility]; Protocol Last Admin: 05/01/24 23:09 Dose: 4 mg Fluticasone Propionate (Fluticasone Propionate Nasal 16 Gm [place]) 1 spray NOSTRIL-B BID [facility] Last Admin: 05/02/24 10:05 Dose: Not Given Fluticasone/Umeclidinium/Vilanterol (Fluticasone/Umeclidinium/Vilanterol 100/62.5/25 Blst.W.Dev) 1 puff INHALE RDAILY [facility] Last Admin: 05/02/24 08:06 Dose: 1 puff Furosemide (Furosemide 40 Mg Tablet) 80 mg PO MOWEFR@1600 [facility]; Protocol Furosemide (Furosemide 40 Mg Tablet) 80 mg PO SUTUTHSA@0900 [facility]; Protocol Last Admin: 05/02/24 08:30 Dose: 80 mg Glucose (Glucose Gel 15 Gm Gel..Gram.) 15 gm PO Q15M PRN; Protocol PRN Reason: per Hypoglycemia Standing Ord. Hydralazine HCl (Hydralazine Hcl 25 Mg Tablet) 25 mg PO MOWEFR@1600 [facility]; Protocol Hydralazine HCl (Hydralazine Hcl 25 Mg Tablet) 25 mg PO SUTUTHSA@09,15, [facility]; Protocol Last Admin: 05/02/24 10:07 Dose: Not Given Vancomycin HCl 500 mg/ Sodium (Chloride) 110 mls @ 110 mls/hr IV Q24H [facility] Insulin Glargine (Insulin Glargine,Hum.Rec.Anlog 100 Unit/Ml 10 Ml Vial) 17 unit SUBCUT BEDTIME [facility] Insulin Human Lispro (Insulin Lispro 100 Unit/Ml 3 Ml Vial) 0 unit SUBCUT Q6H [facility]; Protocol Last Admin: 05/02/24 10:06 Dose: Not Given Levetiracetam (Levetiracetam 500 Mg Tablet) 500 mg PO BID [facility] Last Admin: 05/02/24 08:29 Dose: 500 mg Losartan Potassium (Losartan Potassium 25 Mg Tablet) 25 mg PO MOWEFR@1600 [facility]; Protocol Losartan Potassium (Losartan Potassium 25 Mg Tablet) 25 mg PO SUTUTHSA@0900 [facility]; Protocol Last Admin: 05/02/24 08:30 Dose: 25 mg Magnesium Hydroxide (Milk Of Magnesia 30 Ml Oral.Susp) 30 ml PO DAILY PRN PRN Reason: Constipation Melatonin (Melatonin 3 Mg Tablet) 6 mg PO BEDTIME PRN PRN Reason: Insomnia Morphine Sulfate (Morphine Sulfate 2 Mg/Ml Cartridge) 2 mg IVPUSH Q4H PRN; Protocol PRN Reason: Pain, Severe (Pain Scale 7-10) Last Admin: 05/01/24 23:17 Dose: 2 mg Non-Formulary Medication (Sucroferric Oxyhydroxide [Velphoro]) 500 mg PO TID [facility] Omeprazole (Omeprazole 20 Mg Capsule.Dr) 20 mg PO DAILY@0630 [facility] Last Admin: 05/02/24 08:30 Dose: 20 mg Ondansetron HCl (Ondansetron Hcl 4 Mg/2 Ml Vial) 4 mg IVPUSH Q8H PRN PRN Reason: Nausea and Vomiting Oxycodone HCl (Oxycodone Hcl Immed Release 5 Mg Tablet) 5 mg PO Q6H PRN PRN Reason: Pain, Moderate(Pain Scale 4-6) Last Admin: 05/02/24 01:23 Dose: 5 mg Pharmacy Consult (Consult Rx Vancomycin Dosing) 1 each MISCELLANE DAILY PRN PRN Reason: Consult order Pregabalin (Pregabalin 75 Mg Capsule) 75 mg PO MOWEFR@1600 [facility] Pregabalin (Pregabalin 75 Mg Capsule) 75 mg PO SUTUTHSA@ [facility] Last Admin: 05/02/24 10:08 Dose: Not Given Senna (Sennosides 8.6 Mg Tablet) 8.6 mg PO DAILY PRN PRN Reason: Constipation Sodium Chloride (0.9 % Sodium Chloride Flush 3 Ml Syringe) 3 ml IVFLUSH QSHIFT [facility] Last Admin: 05/02/24 08:28 Dose: 3 ml Home Medications ?Medication ?Instructions ?Recorded ?Confirmed ?Last Taken ?Type albuterol sulfate 90 mcg/actuation 2 puff inhalation Q4H PRN 04/19/22 05/01/24 03/05/24 History aerosol inhaler Shortness Of Breath allopurinol 100 mg tablet 100 mg PO MOWEFR@1600 04/19/22 05/01/24 03/18/24 History atorvastatin 40 mg tablet 40 mg PO SUTUTHSA@89904/19/22 05/01/24 03/19/24 History doxazosin 4 mg tablet 4 mg PO BEDTIME 04/19/22 05/01/24 03/18/24 History furosemide 80 mg tablet 80 mg PO SUTUTHSA@89904/19/22 05/01/24 03/19/24 History ipratropium 0.5 mg-albuterol 3 mg 3 ml inhalation QID PRN Wheezing 04/19/22 05/01/24 Unknown History (2.5 mg base)/3 mL nebulization soln omeprazole 20 mg capsule,delayed 20 mg PO DAILY@0630 04/19/22 05/01/24 03/19/24 History release insulin lispro 100 unit/mL 1 sliding scale dose subcut TIDAC 04/10/23 05/01/24 03/18/24 History subcutaneous pen aspirin 81 mg tablet,delayed 81 mg PO SUTUTHSA@06/20/23 05/01/24 03/19/24 History release pregabalin 75 mg capsule 75 mg PO SUTUTHSA@,15,21 06/20/23 05/01/24 03/19/24 History hydralazine 25 mg tablet 25 mg PO SUTUTHSA@,15,21 01/24/24 05/01/24 03/19/24 History sucroferric oxyhydroxide 500 mg 500 mg PO TID 01/24/24 05/01/24 03/19/24 History chewable tablet (Velphoro) acetaminophen 325 mg tablet 650 mg PO Q4H PRN PAIN/FEVER 04/05/24 05/01/24 Unknown History aspirin 81 mg tablet,delayed 81 mg PO MOWEFR@159904/05/24 05/01/24 Unknown History release atorvastatin 40 mg tablet 40 mg PO MOWEFR@159904/05/24 05/01/24 Unknown History bisacodyl 10 mg rectal suppository 10 mg MS DAILY PRN Constipation 04/05/24 05/01/24 Unknown History (Dulcolax (bisacodyl)) carvedilol 6.25 mg tablet 6.25 mg PO BID 04/05/24 05/01/24 Unknown History fluticasone fur. 100 mcg-umeclid 1 inh inhalation DAILY 04/05/24 05/01/24 Unknown History 62.5 mcg-vilant 25 mcg inhalat.powder (Trelegy Ellipta) furosemide 80 mg tablet 80 mg PO MOWEFR@159904/05/24 05/01/24 Unknown History hydralazine 25 mg tablet 25 mg PO MOWEFR@159904/05/24 05/01/24 Unknown History losartan 25 mg tablet 25 mg PO MOWEFR@159904/05/24 05/01/24 Unknown History losartan 25 mg tablet 25 mg PO SUTUTHSA@0900 04/05/24 05/01/24 Unknown History oxycodone 5 mg tablet 5 mg PO Q6H PRN pain 04/05/24 05/01/24 Unknown History pregabalin 75 mg capsule 75 mg PO MOWEFR@1600 04/05/24 05/01/24 Unknown History sennosides 8.6 mg tablet (senna) 8.6 mg PO DAILY PRN Constipation 04/05/24 05/01/24 Unknown History insulin glargine 100 unit/mL (3 22 unit subcut BEDTIME 05/01/24 05/01/24 Unknown History mL) subcutaneous pen (Lantus Solostar U-100 Insulin) Physical Exam Vital Signs: Vital Signs: Last Vital Signs Temp 97.7 F 05/02/24 04:13 Pulse 68 05/02/24 08:29 Resp 17 05/02/24 08:10 BP 140/83 H 05/02/24 08:30 Pulse Ox 100 05/02/24 04:13 O2 Del Method Room Air 05/02/24 04:13 O2 Flow Rate 2 05/02/24 04:13 Oxygen Flow Rate 2 05/01/24 16:16 BMI result Body Mass Index 29.1 GENERAL APPEARANCE: in no acute distress. SKIN: rash leg HEART: no murmurs, regular rate and rhythm. LUNGS: clear to auscultation bilaterally. ABDOMEN: soft, nontender. EXTREMITIES: Right BKA. PERIPHERAL PULSES: equal. NEUROLOGIC: No gross deficits, AAO X 3 Objective Labs and Meds 05/02/24 04:21 05/02/24 04:21 Lab results: Laboratory Results - last 24 hr 05/01/24 05/01/24 05/02/24 16:51 22:16 03:53 WBC 8.7 RBC 3.73 L Hgb 9.2 L Hct 28.5 L MCV 76.4 L MCH 24.7 L MCHC 32.3 RDW 18.1 H Plt Count 355 MPV 11.8 Immature Gran % (Auto) 1.0 H Neut % (Auto) 84.5 H Lymph % (Auto) 8.1 L [place] % (Auto) 5.3 Eos % (Auto) 0.9 Baso % (Auto) 0.2 Lymph # (Auto) 0.7 L [place] # (Auto) 0.5 Eos # (Auto) 0.1 Baso # (Auto) 0.0 Abs Immat Gran (auto) 0.09 H Absolute Neuts (auto) 7.4 Absolute Nucleated RBC 0.000 Nucleated RBC % (auto) 0.0 ESR 92 H PT 15.2 H INR 1.3 H Sodium 136 Potassium 4.3 Chloride 96 Carbon Dioxide 26 Anion Gap 18 BUN 59 H Creatinine 5.66 H* Estim Creat Clear Calc 12.1 Estimated GFR 10 POC Glucose 335 H 53 L* Random Glucose 424 H* Lactic Acid 1.2 Calcium 8.5 Total Bilirubin 0.4 AST 29 ALT 19 Alkaline Phosphatase 232 H C-Reactive Protein 19.06 H Total Protein 7.7 Albumin 3.1 L Lipase 55 TSH 0.61 05/02/24 05/02/24 05/02/24 04:16 04:21 09:46 WBC 9.8 RBC 3.46 L Hgb 8.2 L Hct 26.6 L MCV 76.9 L MCH 23.7 L MCHC 30.8 L RDW 18.0 H Plt Count 304 MPV 12.0 Immature Gran % (Auto) Neut % (Auto) Lymph % (Auto) [place] % (Auto) Eos % (Auto) Baso % (Auto) Lymph # (Auto) [place] # (Auto) Eos # (Auto) Baso # (Auto) Abs Immat Gran (auto) Absolute Neuts (auto) Absolute Nucleated RBC 0.000 Nucleated RBC % (auto) 0.0 ESR PT INR Sodium 139 Potassium 4.3 Chloride 99 Carbon Dioxide 23 Anion Gap 21 H BUN 64 H Creatinine 6.20 H* Estim Creat Clear Calc 11.0 Estimated GFR 9 POC Glucose 148 H 95 Random Glucose 149 H Lactic Acid Calcium 8.2 L Total Bilirubin 0.5 AST 23 ALT 11 Alkaline Phosphatase 197 H C-Reactive Protein Total Protein 7.1 Albumin 2.9 L Lipase TSH Assessment and Plan (1) Acute pericardial effusion: Status: Acute Plan Pleasant 69 male with ESRD presenting with rash and concern for vasculitis. He has known pericardial effusion based on previous echo which was small to mod in sized and he had severe pulm HTN present. Recent echo is showing severe biventricular dysfunction and mod to large sized pericardial effusion. He has some resp variation across the mitral and tricuspid valves and also has plethoric IVC but clinically he no symptoms/signs of tamponade. I think he should be dialyzed with extra sessions and effusion be reassessed. i think thoracic surgery should be involved because a pericardial window will be a better way of treating this issue in case he needs drainage. He has Biv failure which is new and etiology is unclear and will need further work up as he stabilizes further. Complex issues and we will follow with you. Procedures Date of Service Date of Service: 05/02/24
[2024-05-02] MEDS: Morphine Sulfate 2 MG/ML CARTRIDGE IVPUSH ×2 (12:01→22:27)
--- NOTE | 2024-05-02 12:06 | PC.NURSE ---
Pt removing dress to right BKA, reporting severe pain. pt medicated per MAR, dressing replaced. Echo at bedside.
--- NOTE | 2024-05-02 14:15 | MHC.CM.PN ---
CM attempted to meet with pt. twice, he was either asleep or very lethargic. EMR review: pt. lives with family, has VNA services from [facility] and goes to [facility]. HCP is his son Nestor, and it is on file, PCP is Shayla Augustine NP. Family to transport pt. home at DC. DCP: home, resume VNA services. CM to follow for DC needs.
[2024-05-02] MEDS: Pregabalin 75 MG CAPSULE PO ×2 (14:50→21:24)
[2024-05-02] MEDS: hydrALAZINE HCl 25 MG TABLET PO (14:50)
[2024-05-02] MEDS: methylPREDNISolone Sod Succ 125 MG/2 ML VIAL IVPUSH (14:50)
--- NOTE | 2024-05-02 15:15 | PC.NURSE ---
Pt remains lethargic but quickly arouses to verbal. Able to take his afternoon meds, BGL 72. Provider updated and reported she is placing diabetic diet in. Pt noted to have 2 runs of arrhythmia on monitor today, brief and resolved on its own. Pictures of monitor strips sent to provider.
[2024-05-02 15:17] LABS: Glucose, Whole Blood 72 mg/dL (60-115)
--- NOTE | 2024-05-02 15:18 | PM.CNGS ---
History of Present Illness Consult details Consult date: 05/02/24 <Rohith Valdes MD - Last Filed: 05/03/24 09:55> Requesting physician: Lily Candelario <Briana Valerio PA-C - Last Filed: 05/02/24 18:35> Narrative: 69-year-old male with a multiple medical comorbidities including ESRD on HD M/W/F, diabetes mellitus, peripheral vascular disease s/p right BKA 2, HFrEF, HTN, HLD, chronically on 2L home O2 who presented to the ED with a rash. Patient is somnolent today and history was obtained from EMR as well as patient. His rash apparently began on his left knee and the back of his upper left arm and began around a week prior to presentation however began to spread to back, abdomen, and down his leg and arms. Rash is neither itchy or painful. Work up in the ED included CT of chest which showed increased large pericardial effusion as well as right pleural effusion with pleural thickening and right lower and middle lobe consolidations, similar to prior. CT of abdomen and pelvis showed no significant pathology. He was admitted to the hospitalist service for treatment and evaluation of pericardial effusion and diffuse rash concerning for septic emboli vs vasculitis. General/thoracic surgery was consulted for the pericardial effusion and biopsy of the rash. <Briana Valerio PA-C - Last Filed: 05/02/24 18:35> Review of Systems Review of Systems: Yes all other systems are reviewed and are negative <Briana Valerio PA-C - Last Filed: 05/02/24 18:35> FOR[facility]LY [facility] Past Medical History Medical History: Medical History (Updated 05/02/24 @ 15:22 by Torsten Cowart MD) ESRD needing dialysis Right sided weakness Dehiscence of wound Peripheral arterial disease Cellulitis of right foot Hypertension Dry gangrene HFrEF (heart failure with reduced ejection fraction) ESRD (end stage renal disease) Chronic combined systolic and diastolic CHF (congestive heart failure) Chronic pericardial effusion Arthritis Asthma Restless leg syndrome Acute on chronic systolic and diastolic heart failure, NYHA class 3 Anemia ESRD (end stage renal disease) Occlusive thrombus Pulmonary edema ROBERT (obstructive sleep apnea) Type 2 diabetes mellitus Hyperlipidemia Hypertension A-V fistula ESRD on dialysis Falling <Briana Valerio PA-C - Last Filed: 05/02/24 18:35> Family History Family History: Family History Father No problems noted. Mother No problems noted. <Briana Valerio PA-C - Last Filed: 05/02/24 18:35> Surgical History Surgical History: Surgical History Hx of right BKA Status post transmetatarsal amputation of right foot History of transmetatarsal amputation of foot History of surgery H/O colonoscopy Recurrent pleural effusion Pleural effusion on right (07/13/23) <SOPHIE Vines Last Filed: 05/02/24 18:35> Social History Social History: Social History Household Members: Children Household Members Other:: son Housing: Apartment Are you a primary customer care professional to a significant other at home: No Do you presently have visiting nurse or other home services: No Alcohol intake: never Comment: counts correct Patient Tobacco Use Status: Former Tobacco user Tobacco use type: Cigarette Second Hand Smoke Exposure: No Advance Directives Date on File: 04/13/23 service: No <Briana Valerio PA-C - Last Filed: 05/02/24 18:35> Meds Allergies/Adverse reactions: Allergies Allergy/AdvReac Type Severity Reaction Status Date / Time Iodinated Contrast Media Allergy Severe Facial Verified 05/01/24 16:21 [Contrast Dye] Swelling <Briana Valerio PA-C - Last Filed: 05/02/24 18:35> Active Medications: Current Medications Acetaminophen (Acetaminophen 325 Mg Tablet) 650 mg PO Q6H PRN PRN Reason: Pain, Mild 1-3,fever,headache Albuterol Sulfate (Albuterol Sulfate 90 Mcg 8 Gm Inhaler) 2 puff INHALE RQ4H PRN PRN Reason: Shortness Of Breath Albuterol/Ipratropium (Albuterol/Iprat 2.5/0.5mg 3 Ml Ampul.Neb) 3 ml INHALE RQID PRN PRN Reason: Wheezing Allopurinol (Allopurinol 100 Mg Tablet) 100 mg PO MOWEFR@1600 [place] Atorvastatin Calcium (Atorvastatin Calcium 40 Mg Tablet) 40 mg PO MOWEFR@1600 [facility] Atorvastatin Calcium (Atorvastatin Calcium 40 Mg Tablet) 40 mg PO SUTUTHSA@0900 [facility] Last Admin: 05/02/24 08:29 Dose: 40 mg Bisacodyl (Bisacodyl 10 Mg Supp.Rect) 10 mg MS DAILY PRN PRN Reason: Constipation Calcium Carbonate (Calcium Carbonate 750 Mg Tab.Chew) 750 mg PO Q4H PRN PRN Reason: Heartburn Carvedilol (Carvedilol 6.25 Mg Tablet) 6.25 mg PO BID [facility]; Protocol Last Admin: 05/02/24 08:29 Dose: 6.25 mg Ceftriaxone Sodium (Ceftriaxone Sodium 1 Gm Vial) 1 gm IVPUSH Q24H [facility] Last Admin: 05/01/24 22:20 Dose: 1 gm Dextrose (Dextrose 50 % 25 Gm/50 Ml Syringe) 25 gm IVPUSH Q15M PRN; Protocol PRN Reason: per Hypoglycemia Standing Ord. Last Admin: 05/02/24 03:57 Dose: 25 gm Doxazosin Mesylate (Doxazosin Mesylate 2 Mg Tablet) 4 mg PO BEDTIME [facility]; Protocol Last Admin: 05/01/24 23:09 Dose: 4 mg Fluticasone Propionate (Fluticasone Propionate Nasal 16 Gm [place]) 1 spray NOSTRIL-B BID [facility] Last Admin: 05/02/24 10:05 Dose: Not Given Fluticasone/Umeclidinium/Vilanterol (Fluticasone/Umeclidinium/Vilanterol 100/62.5/25 Blst.W.Dev) 1 puff INHALE RDAILY [facility] Last Admin: 05/02/24 08:06 Dose: 1 puff Furosemide (Furosemide 40 Mg Tablet) 80 mg PO MOWEFR@1600 [facility]; Protocol Furosemide (Furosemide 40 Mg Tablet) 80 mg PO SUTUTHSA@0900 [facility]; Protocol Last Admin: 05/02/24 08:30 Dose: 80 mg Glucose (Glucose Gel 15 Gm Gel..Gram.) 15 gm PO Q15M PRN; Protocol PRN Reason: per Hypoglycemia Standing Ord. Hydralazine HCl (Hydralazine Hcl 25 Mg Tablet) 25 mg PO MOWEFR@1600 [facility]; Protocol Hydralazine HCl (Hydralazine Hcl 25 Mg Tablet) 25 mg PO SUTUTHSA@09,15,21 [facility]; Protocol Last Admin: 05/02/24 14:50 Dose: 25 mg Vancomycin HCl 500 mg/ Sodium (Chloride) 110 mls @ 110 mls/hr IV Q24H [facility] Insulin Glargine (Insulin Glargine,Hum.Rec.Anlog 100 Unit/Ml 10 Ml Vial) 17 unit SUBCUT BEDTIME [facility] Insulin Human Lispro (Insulin Lispro 100 Unit/Ml 3 Ml Vial) 0 unit SUBCUT Q6H [facility]; Protocol Last Admin: 05/02/24 15:18 Dose: Not Given Levetiracetam (Levetiracetam 500 Mg Tablet) 500 mg PO BID [facility] Last Admin: 05/02/24 08:29 Dose: 500 mg Losartan Potassium (Losartan Potassium 25 Mg Tablet) 25 mg PO MOWEFR@1600 [facility]; Protocol Losartan Potassium (Losartan Potassium 25 Mg Tablet) 25 mg PO SUTUTHSA@0900 [facility]; Protocol Last Admin: 05/02/24 08:30 Dose: 25 mg Magnesium Hydroxide (Milk Of Magnesia 30 Ml Oral.Susp) 30 ml PO DAILY PRN PRN Reason: Constipation Melatonin (Melatonin 3 Mg Tablet) 6 mg PO BEDTIME PRN PRN Reason: Insomnia Morphine Sulfate (Morphine Sulfate 2 Mg/Ml Cartridge) 2 mg IVPUSH Q4H PRN; Protocol PRN Reason: Pain, Severe (Pain Scale 7-10) Last Admin: 05/02/24 12:01 Dose: 2 mg Non-Formulary Medication (Sucroferric Oxyhydroxide [Velphoro]) 500 mg PO TID [facility] Omeprazole (Omeprazole 20 Mg Capsule.) 20 mg PO DAILY@0630 [facility] Last Admin: 05/02/24 08:30 Dose: 20 mg Ondansetron HCl (Ondansetron Hcl 4 Mg/2 Ml Vial) 4 mg IVPUSH Q8H PRN PRN Reason: Nausea and Vomiting Oxycodone HCl (Oxycodone Hcl Immed Release 5 Mg Tablet) 5 mg PO Q6H PRN PRN Reason: Pain, Moderate(Pain Scale 4-6) Last Admin: 05/02/24 01:23 Dose: 5 mg Pharmacy Consult (Consult Rx Vancomycin Dosing) 1 each MISCELLANE DAILY PRN PRN Reason: Consult order Pregabalin (Pregabalin 75 Mg Capsule) 75 mg PO MOWEFR@1600 [facility] Pregabalin (Pregabalin 75 Mg Capsule) 75 mg PO SUTUTHSA@ [facility] Last Admin: 05/02/24 14:50 Dose: 75 mg Senna (Sennosides 8.6 Mg Tablet) 8.6 mg PO DAILY PRN PRN Reason: Constipation Sodium Chloride (0.9 % Sodium Chloride Flush 3 Ml Syringe) 3 ml IVFLUSH QSHIFT [facility] Last Admin: 05/02/24 14:54 Dose: 3 ml <Briana Valerio PA-C - Last Filed: 05/02/24 18:35> Home medications: Home Medications ?Medication ?Instructions ?Recorded ?Confirmed ?Last Taken ?Type albuterol sulfate 90 mcg/actuation 2 puff inhalation Q4H PRN 04/19/22 05/01/24 03/05/24 History aerosol inhaler Shortness Of Breath allopurinol 100 mg tablet 100 mg PO MOWEFR@1600 04/19/22 05/01/24 03/18/24 History atorvastatin 40 mg tablet 40 mg PO SUTUTHSA@0904/19/22 05/01/24 03/19/24 History doxazosin 4 mg tablet 4 mg PO BEDTIME 04/19/22 05/01/24 03/18/24 History furosemide 80 mg tablet 80 mg PO SUTUTHSA@0904/19/22 05/01/24 03/19/24 History ipratropium 0.5 mg-albuterol 3 mg 3 ml inhalation QID PRN Wheezing 04/19/22 05/01/24 Unknown History (2.5 mg base)/3 mL nebulization soln omeprazole 20 mg capsule,delayed 20 mg PO DAILY@0630 04/19/22 05/01/24 03/19/24 History release insulin lispro 100 unit/mL 1 sliding scale dose subcut TIDAC 04/10/23 05/01/24 03/18/24 History subcutaneous pen aspirin 81 mg tablet,delayed 81 mg PO SUTUTHSA@06/20/23 05/01/24 03/19/24 History release pregabalin 75 mg capsule 75 mg PO SUTUTHSA@,06/20/23 05/01/24 03/19/24 History hydralazine 25 mg tablet 25 mg PO SUTUTHSA@, 01/24/24 05/01/24 03/19/24 History sucroferric oxyhydroxide 500 mg 500 mg PO TID 01/24/24 05/01/24 03/19/24 History chewable tablet (Velphoro) acetaminophen 325 mg tablet 650 mg PO Q4H PRN PAIN/FEVER 04/05/24 05/01/24 Unknown History aspirin 81 mg tablet,delayed 81 mg PO MOWEFR@159904/05/24 05/01/24 Unknown History release atorvastatin 40 mg tablet 40 mg PO MOWEFR@159904/05/24 05/01/24 Unknown History bisacodyl 10 mg rectal suppository 10 mg MS DAILY PRN Constipation 04/05/24 05/01/24 Unknown History (Dulcolax (bisacodyl)) carvedilol 6.25 mg tablet 6.25 mg PO BID 04/05/24 05/01/24 Unknown History fluticasone fur. 100 mcg-umeclid 1 inh inhalation DAILY 04/05/24 05/01/24 Unknown History 62.5 mcg-vilant 25 mcg inhalat.powder (Trelegy Ellipta) furosemide 80 mg tablet 80 mg PO MOWEFR@159904/05/24 05/01/24 Unknown History hydralazine 25 mg tablet 25 mg PO MOWEFR@159904/05/24 05/01/24 Unknown History losartan 25 mg tablet 25 mg PO MOWEFR@159904/05/24 05/01/24 Unknown History losartan 25 mg tablet 25 mg PO SUTUTHSA@0900 04/05/24 05/01/24 Unknown History oxycodone 5 mg tablet 5 mg PO Q6H PRN pain 04/05/24 05/01/24 Unknown History pregabalin 75 mg capsule 75 mg PO MOWEFR@159904/05/24 05/01/24 Unknown History sennosides 8.6 mg tablet (senna) 8.6 mg PO DAILY PRN Constipation 04/05/24 05/01/24 Unknown History insulin glargine 100 unit/mL (3 22 unit subcut BEDTIME 05/01/24 05/01/24 Unknown History mL) subcutaneous pen (Lantus Solostar U-100 Insulin) <Briana Valerio PA-C - Last Filed: 05/02/24 18:35> Physical Exam Vital Signs: Vital Signs: Last Vital Signs Temp 98.6 F 05/02/24 14:59 Pulse 62 05/02/24 14:59 Resp 15 05/02/24 14:59 BP 143/68 H 05/02/24 14:59 Pulse Ox 99 05/02/24 14:59 O2 Del Method Nasal Cannula 05/02/24 14:59 O2 Flow Rate 2 05/02/24 14:59 Oxygen Flow Rate 2 05/01/24 16:16 BMI result Body Mass Index 29.1 <SOPHIE Vines Last Filed: 05/02/24 18:35> Const: Other: somnolent but arousable, responds appropriately <SOPHIE Vines Last Filed: 05/02/24 18:35> General: no acute distress <Briana Valerio PA-C whistleBox Last Filed: 05/02/24 18:35> Chest: Chest palpation & inspection: normal inspection of the chest <Briana Valerio PA-C [place] Last Filed: 05/02/24 18:35> Resp: Effort & Inspection: normal respiratory effort, not labored, not tachypneic, no tracheal deviation and no use of accessory muscles <Briana Valerio PA-C [place] Last Filed: 05/02/24 18:35> GI: Inspection: No distended <Briana Valerio PA-C [place] Last Filed: 05/02/24 18:35> Palpation (GI): Soft to palpation and nontender <SOPHIE Vines Last Filed: 05/02/24 18:35> Skin: Other: violaceous to erythematous appearing nonblanching, non raised rash throughout extremities and trunk of varying sizes <SOPHIE Vines Last Filed: 05/02/24 18:35> Extrem: Other: right BKA dressing intact small discolored/darkened area of tip of big toe; similar appearance of right third finger but more extensive and painful to palpation <SOPHIE Vines Last Filed: 05/02/24 18:35> Results Labs Result diagrams: 05/03/24 06:13 05/03/24 06:13 <Briana Valerio PA-C - Last Filed: 05/02/24 18:35> Labs: Abnormal lab results 05/01/24 05/01/24 05/02/24 Range/Units 16:51 22:16 03:53 RBC 3.73 L (4.60-5.80) X10*6/uL Hgb 9.2 L (14.0-18.0) g/dl Hct 28.5 L (42.0-52.0) % MCV 76.4 L (80.0-98.0) fL MCH 24.7 L (27.0-33.0) pg MCHC (31.0-36.0) g/dl RDW 18.1 H (11.0-16.0) % Immature Gran % (Auto) 1.0 H (0.0-0.4) % Neut % (Auto) 84.5 H (45-73) % Lymph % (Auto) 8.1 L (20-40) % Lymph # (Auto) 0.7 L (1.2-4.9) X10*3/uL Abs Immat Gran (auto) 0.09 H (0.00-0.03) X10*3/uL ESR 92 H (0-15) MM/HR PT 15.2 H (10.9-12.4) SEC INR 1.3 H (0.9-1.1) Anion Gap (12-20) BUN 59 H (9-16) mg/dL Creatinine 5.66 H* (0.5-1.4) mg/dL POC Glucose 335 H 53 L* (60-115) mg/dL Random Glucose 424 H* (60-115) mg/dL Calcium (8.4-10.2) mg/dL Alkaline Phosphatase 232 H (39-117) U/L C-Reactive Protein 19.06 H (< or = 0.50) mg/dL Albumin 3.1 L (3.5-5.0) g/dL 05/02/24 05/02/24 Range/Units 04:16 04:21 RBC 3.46 L (4.60-5.80) X10*6/uL Hgb 8.2 L (14.0-18.0) g/dl Hct 26.6 L (42.0-52.0) % MCV 76.9 L (80.0-98.0) fL MCH 23.7 L (27.0-33.0) pg MCHC 30.8 L (31.0-36.0) g/dl RDW 18.0 H (11.0-16.0) % Immature Gran % (Auto) (0.0-0.4) % Neut % (Auto) (45-73) % Lymph % (Auto) (20-40) % Lymph # (Auto) (1.2-4.9) X10*3/uL Abs Immat Gran (auto) (0.00-0.03) X10*3/uL ESR (0-15) MM/HR PT (10.9-12.4) SEC INR (0.9-1.1) Anion Gap 21 H (12-20) BUN 64 H (9-16) mg/dL Creatinine 6.20 H* (0.5-1.4) mg/dL POC Glucose 148 H (60-115) mg/dL Random Glucose 149 H (60-115) mg/dL Calcium 8.2 L (8.4-10.2) mg/dL Alkaline Phosphatase 197 H (39-117) U/L C-Reactive Protein (< or = 0.50) mg/dL Albumin 2.9 L (3.5-5.0) g/dL Short CBC 05/01/24 05/02/24 Range/Units 16:51 04:21 WBC 8.7 9.8 (4.8-10.8) X10*3/uL Hgb 9.2 L 8.2 L (14.0-18.0) g/dl Hct 28.5 L 26.6 L (42.0-52.0) % Plt Count 355 304 (160-400) X10*3/uL BMP 05/01/24 05/02/24 16:51 04:21 Sodium 136 139 Potassium 4.3 4.3 Chloride 96 99 Carbon Dioxide 26 23 BUN 59 H 64 H Creatinine 5.66 H* 6.20 H* Calcium 8.5 8.2 L Liver Function 05/01/24 05/02/24 Range/Units 16:51 04:21 Total Bilirubin 0.4 0.5 (0.0-1.0) mg/dL AST 29 23 (5-37) U/L ALT 19 11 (0-40) U/L Alkaline Phosphatase 232 H 197 H (39-117) U/L Albumin 3.1 L 2.9 L (3.5-5.0) g/dL All other labs normal. <Briana Valerio PA-C - Last Filed: 05/02/24 18:35> Assessment and Plan (1) Rash: Status: Acute <Briana Valerio PA-C - Last Filed: 05/02/24 18:35> (2) Acute pericardial effusion: Status: Acute <Briana Valerio PA-C - Last Filed: 05/02/24 18:35> 69-year-old male with multiple medical comorbidities presenting with complaints of new diffuse rash and subsequently admitted to the hospitalist service for treatment and evaluation of enlarged pericardial effusion and diffuse rash concerning for septic emboli vs vasculitis. Thoracic surgery was consulted for the pericardial effusion. This was present on imaging from 01/27 admission however is now increased in size. Clinically no signs or symptoms of tamponade however as said, the effusion has increased in size compared to his past imaging and he has had significant decrease in his ejection fraction compared to has last echo in 09/26. Will add onto the OR schedule for pericardial window tomorrow or sooner if develops clinical signs of deterioration. General surgery was consulted for biopsy of the rash. See procedure note below. Patient was placed in supine position to expose rash. After assuring informed consent, the skin was prepped with betadine. 5 cc of 1% lidocaine was then infiltrated over an area of the rash on the left lateral lower extremity. A punch biopsy was obtained extending into the subcutaneous tissue. Pressure was held with sterile gauze until hemostasis ensured. The site was dressed with dry sterile gauze and paz wrap. The biopsy specimen was placed in a formalin container and sent to pathology. The patient tolerated the procedure very well. <Briana Valerio PA-C - Last Filed: 05/02/24 18:35> 69-year-old male with multiple medical comorbidities presenting with complaints of new diffuse rash and subsequently admitted to the hospitalist service for treatment and evaluation of enlarged pericardial effusion and diffuse rash concerning for septic emboli vs vasculitis. Thoracic surgery was consulted for the pericardial effusion. This was present on imaging from 01/27 admission however is now increased in size. Clinically no signs or symptoms of tamponade however as said, the effusion has increased in size compared to his past imaging and he has had significant decrease in his ejection fraction compared to has last echo in 09/26. Will add onto the OR schedule for pericardial window tomorrow or sooner if develops clinical signs of deterioration. General surgery was consulted for biopsy of the rash. See procedure note below. Patient was placed in supine position to expose rash. After assuring informed consent, the skin was prepped with betadine. 5 cc of 1% lidocaine was then infiltrated over an area of the rash on the left lateral lower extremity. A punch biopsy was obtained extending into the subcutaneous tissue. Pressure was held with sterile gauze until hemostasis ensured. The site was dressed with dry sterile gauze and paz wrap. The biopsy specimen was placed in a formalin container and sent to pathology. The patient tolerated the procedure very well. As noted above <Rohith Valdes MD - Last Filed: 05/03/24 09:55> Procedures Date of Service Date of Service: 05/02/24 <Briana Valerio PA-C - Last Filed: 05/02/24 18:35> 05/03/24 <Rohith Valdes MD - Last Filed: 05/03/24 09:55>
--- NOTE | 2024-05-02 15:21 | P.CONNP_ITS ---
History of Present Illness Reason for Consult Consult date: 05/02/24 Chief Complaint Chief complaint: Rash, pericardial effusion History of Present Illness Narrative: 69-year-old male with a PMH significant for?ESRD on HD M/W/F last dialyzed earlier today, insulin-dependent type 2 diabetes, peripheral vascular disease, s/p right BKA 04/[address] Cannon, HFrEF, HTN, HLD, chronically on 2L home O2, GERD, and ROBERT on CPAP who presents to the ED with?rash x2 days. Pt reports rash began on his left knee and the back of his upper left arm. Saw vascular surgery yesterday for follow up appointment for BKA and had francisco removed the sutures remained intact. Last night rash began to spread to back, belly, groin, and down leg legs and arms, worsening this morning. Rash is neither itching or painful. Pt himself did not initially notice it until family member point in and out and encouraged him to come to the ED for further evaluation. Pt complains of pain in right stump and reports he has not been taking much pain medication for it at home. Denies any other systemic symptoms. No fever, chills, nausea, vomiting, abdominal pain. Denies chest pain/pressure, palpitations. Chronic SOB at baseline. No increased difficulty breathing or cough.. PMFSH Past Medical History Medical History (Updated 05/07/24 @ 10:33 by Ko England MD) Acute pericardial effusion ESRD needing dialysis Right sided weakness Dehiscence of wound Peripheral arterial disease Cellulitis of right foot Hypertension Dry gangrene HFrEF (heart failure with reduced ejection fraction) ESRD (end stage renal disease) Chronic combined systolic and diastolic CHF (congestive heart failure) Chronic pericardial effusion Arthritis Asthma Restless leg syndrome Acute on chronic systolic and diastolic heart failure, NYHA class 3 Anemia ESRD (end stage renal disease) Occlusive thrombus Pulmonary edema ROBERT (obstructive sleep apnea) Type 2 diabetes mellitus Hyperlipidemia Hypertension A-V fistula ESRD on dialysis Falling Family History Family History Father No problems noted. Mother No problems noted. Surgical History Surgical History (Updated 05/04/24 @ 07:10 by Rohith Valdes MD) Postop check Hx of right BKA Status post transmetatarsal amputation of right foot History of transmetatarsal amputation of foot History of surgery H/O colonoscopy Recurrent pleural effusion Pleural effusion on right (07/13/23) Social History Social History Household Members: Children Household Members Other:: son Housing: Apartment Are you a primary child day care provider to a significant other at home: No Do you presently have visiting nurse or other home services: No Alcohol intake: never Comment: counts correct Patient Tobacco Use Status: Former Tobacco user Tobacco use type: Cigarette Second Hand Smoke Exposure: No Advance Directives Date on File: 04/13/23 service: No Meds Allergies Allergy/AdvReac Type Severity Reaction Status Date / Time Iodinated Contrast Media Allergy Severe Facial Verified 05/01/24 16:21 [Contrast Dye] Swelling Active Medications: Current Medications Acetaminophen (Acetaminophen 325 Mg Tablet) 650 mg PO Q6H PRN PRN Reason: Pain, Mild 1-3,fever,headache Albuterol Sulfate (Albuterol Sulfate 90 Mcg 8 Gm Inhaler) 2 puff INHALE RQ4H PRN PRN Reason: Shortness Of Breath Albuterol/Ipratropium (Albuterol/Iprat 2.5/0.5mg 3 Ml Ampul.Neb) 3 ml INHALE RQID PRN PRN Reason: Wheezing Allopurinol (Allopurinol 100 Mg Tablet) 100 mg PO MOWEFR@1600 [facility] Atorvastatin Calcium (Atorvastatin Calcium 40 Mg Tablet) 40 mg PO MOWEFR@1600 [facility] Atorvastatin Calcium (Atorvastatin Calcium 40 Mg Tablet) 40 mg PO SUTUTHSA@0900 [facility] Last Admin: 05/02/24 08:29 Dose: 40 mg Bisacodyl (Bisacodyl 10 Mg Supp.Rect) 10 mg [place] DAILY PRN PRN Reason: Constipation Calcium Carbonate (Calcium Carbonate 750 Mg Tab.Chew) 750 mg PO Q4H PRN PRN Reason: Heartburn Carvedilol (Carvedilol 6.25 Mg Tablet) 6.25 mg PO BID [facility]; Protocol Last Admin: 05/02/24 08:29 Dose: 6.25 mg Ceftriaxone Sodium (Ceftriaxone Sodium 1 Gm Vial) 1 gm IVPUSH Q24H [facility] Last Admin: 05/01/24 22:20 Dose: 1 gm Dextrose (Dextrose 50 % 25 Gm/50 Ml Syringe) 25 gm IVPUSH Q15M PRN; Protocol PRN Reason: per Hypoglycemia Standing Ord. Last Admin: 05/02/24 03:57 Dose: 25 gm Doxazosin Mesylate (Doxazosin Mesylate 2 Mg Tablet) 4 mg PO BEDTIME [facility]; Protocol Last Admin: 05/01/24 23:09 Dose: 4 mg Fluticasone Propionate (Fluticasone Propionate Nasal 16 Gm [place]) 1 spray NOSTRIL-B BID [facility] Last Admin: 05/02/24 10:05 Dose: Not Given Fluticasone/Umeclidinium/Vilanterol (Fluticasone/Umeclidinium/Vilanterol 100/62.5 Blst.W.Dev) 1 puff INHALE RDAILY [facility] Last Admin: 05/02/24 08:06 Dose: 1 puff Furosemide (Furosemide 40 Mg Tablet) 80 mg PO MOWEFR@1600 [facility]; Protocol Furosemide (Furosemide 40 Mg Tablet) 80 mg PO SUTUTHSA@0900 [facility]; Protocol Last Admin: 05/02/24 08:30 Dose: 80 mg Glucose (Glucose Gel 15 Gm Gel..Gram.) 15 gm PO Q15M PRN; Protocol PRN Reason: per Hypoglycemia Standing Ord. Hydralazine HCl (Hydralazine Hcl 25 Mg Tablet) 25 mg PO MOWEFR@1600 [facility]; Protocol Hydralazine HCl (Hydralazine Hcl 25 Mg Tablet) 25 mg PO SUTUTHSA@09,15,21 [facility]; Protocol Last Admin: 05/02/24 14:50 Dose: 25 mg Vancomycin HCl 500 mg/ Sodium (Chloride) 110 mls @ 110 mls/hr IV Q24H [facility] Insulin Glargine (Insulin Glargine,Hum.Rec.Anlog 100 Unit/Ml 10 Ml Vial) 17 unit SUBCUT BEDTIME [facility] Insulin Human Lispro (Insulin Lispro 100 Unit/Ml 3 Ml Vial) 0 unit SUBCUT Q6H [facility]; Protocol Last Admin: 05/02/24 15:18 Dose: Not Given Levetiracetam (Levetiracetam 500 Mg Tablet) 500 mg PO BID [facility] Last Admin: 05/02/24 08:29 Dose: 500 mg Losartan Potassium (Losartan Potassium 25 Mg Tablet) 25 mg PO MOWEFR@1600 [facility]; Protocol Losartan Potassium (Losartan Potassium 25 Mg Tablet) 25 mg PO SUTUTHSA@0900 [facility]; Protocol Last Admin: 05/02/24 08:30 Dose: 25 mg Magnesium Hydroxide (Milk Of Magnesia 30 Ml Oral.Susp) 30 ml PO DAILY PRN PRN Reason: Constipation Melatonin (Melatonin 3 Mg Tablet) 6 mg PO BEDTIME PRN PRN Reason: Insomnia Morphine Sulfate (Morphine Sulfate 2 Mg/Ml Cartridge) 2 mg IVPUSH Q4H PRN; Protocol PRN Reason: Pain, Severe (Pain Scale 7-10) Last Admin: 05/02/24 12:01 Dose: 2 mg Non-Formulary Medication (Sucroferric Oxyhydroxide [Velphoro]) 500 mg PO TID [facility] Omeprazole (Omeprazole 20 Mg Capsule.Dr) 20 mg PO DAILY@0630 [facility] Last Admin: 05/02/24 08:30 Dose: 20 mg Ondansetron HCl (Ondansetron Hcl 4 Mg/2 Ml Vial) 4 mg IVPUSH Q8H PRN PRN Reason: Nausea and Vomiting Oxycodone HCl (Oxycodone Hcl Immed Release 5 Mg Tablet) 5 mg PO Q6H PRN PRN Reason: Pain, Moderate(Pain Scale 4-6) Last Admin: 05/02/24 01:23 Dose: 5 mg Pharmacy Consult (Consult Rx Vancomycin Dosing) 1 each MISCELLANE DAILY PRN PRN Reason: Consult order Pregabalin (Pregabalin 75 Mg Capsule) 75 mg PO MOWEFR@1600 [facility] Pregabalin (Pregabalin 75 Mg Capsule) 75 mg PO SUTUTHSA@,, [facility] Last Admin: 05/02/24 14:50 Dose: 75 mg Senna (Sennosides 8.6 Mg Tablet) 8.6 mg PO DAILY PRN PRN Reason: Constipation Sodium Chloride (0.9 % Sodium Chloride Flush 3 Ml Syringe) 3 ml IVFLUSH QSHIFT [facility] Last Admin: 05/02/24 14:54 Dose: 3 ml Home Medications ?Medication ?Instructions ?Recorded ?Confirmed ?Last Taken ?Type albuterol sulfate 90 mcg/actuation 2 puff inhalation Q4H PRN 04/19/22 05/01/24 03/05/24 History aerosol inhaler Shortness Of Breath allopurinol 100 mg tablet 100 mg PO MOWEFR@1600 04/19/22 05/01/24 03/18/24 History atorvastatin 40 mg tablet 40 mg PO SUTUTHSA@0900 04/19/22 05/01/24 03/19/24 History doxazosin 4 mg tablet 4 mg PO BEDTIME 04/19/22 05/01/24 03/18/24 History furosemide 80 mg tablet 80 mg PO SUTUTHSA@0900 04/19/22 05/01/24 03/19/24 History ipratropium 0.5 mg-albuterol 3 mg 3 ml inhalation QID PRN Wheezing 04/19/22 05/01/24 Unknown History (2.5 mg base)/3 mL nebulization soln omeprazole 20 mg capsule,delayed 20 mg PO DAILY@0630 04/19/22 05/01/24 03/19/24 History release insulin lispro 100 unit/mL 1 sliding scale dose subcut TIDAC 04/10/23 05/01/24 03/18/24 History subcutaneous pen aspirin 81 mg tablet,delayed 81 mg PO SUTUTHSA@09 06/20/23 05/01/24 03/19/24 History release pregabalin 75 mg capsule 75 mg PO SUTUTHSA@,,06/20/23 05/01/24 03/19/24 History hydralazine 25 mg tablet 25 mg PO SUTUTHSA@,,01/24/24 05/01/24 03/19/24 History sucroferric oxyhydroxide 500 mg 500 mg PO TID 01/24/24 05/01/24 03/19/24 History chewable tablet (Velphoro) acetaminophen 325 mg tablet 650 mg PO Q4H PRN PAIN/FEVER 04/05/24 05/01/24 Unknown History aspirin 81 mg tablet,delayed 81 mg PO MOWEFR@1600 04/05/24 05/01/24 Unknown History release atorvastatin 40 mg tablet 40 mg PO MOWEFR@1600 04/05/24 05/01/24 Unknown History bisacodyl 10 mg rectal suppository 10 mg [place] DAILY PRN Constipation 04/05/24 05/01/24 Unknown History (Dulcolax (bisacodyl)) carvedilol 6.25 mg tablet 6.25 mg PO BID 04/05/24 05/01/24 Unknown History fluticasone fur. 100 mcg-umeclid 1 inh inhalation DAILY 04/05/24 05/01/24 Unknown History 62.5 mcg-vilant 25 mcg inhalat.powder (Trelegy Ellipta) furosemide 80 mg tablet 80 mg PO MOWEFR@1600 04/05/24 05/01/24 Unknown History hydralazine 25 mg tablet 25 mg PO MOWEFR@1600 04/05/24 05/01/24 Unknown History losartan 25 mg tablet 25 mg PO MOWEFR@1600 04/05/24 05/01/24 Unknown History losartan 25 mg tablet 25 mg PO SUTUTHSA@0900 04/05/24 05/01/24 Unknown History oxycodone 5 mg tablet 5 mg PO Q6H PRN pain 04/05/24 05/01/24 Unknown History pregabalin 75 mg capsule 75 mg PO MOWEFR@1600 04/05/24 05/01/24 Unknown History sennosides 8.6 mg tablet (senna) 8.6 mg PO DAILY PRN Constipation 04/05/24 05/01/24 Unknown History insulin glargine 100 unit/mL (3 22 unit subcut BEDTIME 05/01/24 05/01/24 Unknown History mL) subcutaneous pen (Lantus Solostar U-100 Insulin) Physical Exam Vital Signs: Last Vital Signs Temp 98.6 F 05/02/24 14:59 Pulse 62 05/02/24 14:59 Resp 15 05/02/24 14:59 BP 143/68 H 05/02/24 14:59 Pulse Ox 99 05/02/24 14:59 O2 Del Method Nasal Cannula 05/02/24 14:59 O2 Flow Rate 2 05/02/24 14:59 Oxygen Flow Rate 2 05/01/24 16:16 BMI result Body Mass Index 29.1 GENERAL APPEARANCE: in no acute distress. SKIN: rash leg HEART: no murmurs, regular rate and rhythm. LUNGS: clear to auscultation bilaterally. ABDOMEN: soft, nontender. EXTREMITIES: Right BKA. PERIPHERAL PULSES: equal. NEUROLOGIC: No gross deficits, AAO X 3 Results Lab Results 05/06/24 06:55 05/06/24 06:55 Lab results: Chemistry 05/01/24 05/02/24 16:51 04:21 Sodium 136 139 Potassium 4.3 4.3 Carbon Dioxide 26 23 BUN 59 H 64 H Creatinine 5.66 H* 6.20 H* Calcium 8.5 8.2 L Hematology 05/01/24 05/02/24 16:51 04:21 WBC 8.7 9.8 Hgb 9.2 L 8.2 L Plt Count 355 304 Assessment and Plan (1) ESRD needing dialysis: Status: Acute Plan 69 man with the end stage renal disease and pericardial effusion. Usually he is dialysis Monday at [facility] [place]. I will arrange for dialysis today. HD via [facility] fluid removal. Concur with other medical management Procedures Date of Service Date of Service: 05/07/24
--- NOTE | 2024-05-02 15:55 | PC.NURSE ---
Pt was given cup of juice after sugar was 72 (provider reported she was putting in diabetic order), BGL improved. Provider updated to then keep pt NPO until surgery consulted.
[2024-05-02 15:56] LABS: Glucose, Whole Blood 112 mg/dL (60-115)
--- NOTE | 2024-05-02 18:27 | PC.NURSE ---
Patient eating food provided by family, OK'd by provider. Plan is NPO after midnight for possible procedure tomorrow
[2024-05-02 19:43] LABS: Rheumatoid Factor < 13.0 IU/mL (<15.0)
[2024-05-02] MEDS: Doxazosin Mesylate 2 MG TABLET 4 MG PO (20:53)
[2024-05-02 21:17] LABS: Glucose, Whole Blood 237 mg/dL (60-115)
[2024-05-02] MEDS: Insulin Lispro 100 UNIT/ML 3 ML VIAL SUBCUT (21:24)
[2024-05-02] MEDS: Fluticasone Propionate Nasal 16 GM SPRAY 1 SPRAY NOSTRIL-B (22:10)
[2024-05-02] MEDS: cefTRIAXone sodium 1 GM VIAL IVPUSH (22:23)
[2024-05-03] VITALS (27 sets, daily range): BP systolic 42–137; BP diastolic 25–90; PULSE 71–139; RESP 10–21; TEMP 36–37.1; O2SAT 90–100
[2024-05-03 01:28] LABS: Glucose, Whole Blood 223 mg/dL (60-115)
[2024-05-03 05:13] LABS: Glucose, Whole Blood 206 mg/dL (60-115)
[2024-05-03 06:30] LABS: MANUAL DIFF FLAG NO
[2024-05-03 06:49] LABS: Basophils Percent Auto 0.1 % (0-2); Hematocrit 26.3 % (42.0-52.0); Hemoglobin 8.2 g/dl (14.0-18.0); Imm Gran Abs Auto 0.09 X10*3/uL (0.00-0.03); Imm Gran Pct Auto 0.9 % (0.0-0.4); Lymphocytes Absolute Auto 0.8 X10*3/uL (1.2-4.9); Lymphocytes Percent Auto 7.8 % (20-40); Mean Corpuscular HGB Conc 31.2 g/dl (31.0-36.0); Mean Corpuscular Hemoglobin 23.9 pg (27.0-33.0); Mean Corpuscular Volume 76.7 fL (80.0-98.0); Mean Platelet Volume 12.4 fL (9.4-12.4); Monocytes Absolute Auto 0.5 X10*3/uL (0.1-1.2); Monocytes Percent Auto 4.5 % (2-11); Neutrophils Absolute Auto 8.8 x10*3/uL (2.0-8.3); Neutrophils Percent Auto 86.7 % (45-73); Platelet Count 357 X10*3/uL (160-400); Red Blood Count 3.43 X10*6/uL (4.60-5.80); Red Cell Distribution Width 18.2 % (11.0-16.0); White Blood Count 10.2 X10*3/uL (4.8-10.8)
[2024-05-03 07:16] LABS: Glucose, Whole Blood 225 mg/dL (60-115)
[2024-05-03 07:19] LABS: Anion Gap 25 (12-20); Blood Urea Nitrogen 85 mg/dL (9-16); Calcium 8.2 mg/dL (8.4-10.2); Carbon Dioxide 20 mmol/L (22-29); Chloride 97 mmol/L (96-108); Creatinine Clr Calc Pharmacy 8.9; Estimated Glomerular Filt Rate 7; Glucose Random 238 mg/dL (60-115); Potassium 5.2 mmol/L (3.3-5.1); Sodium 137 mmol/L (135-145)
[2024-05-03 08:13] LABS: HBS Num1 11.85 mIU/mL (0-7.99); HBc Num1 0.22 S/CO (0.00-0.79); HBsAGNum1 0.42 S/CO (0.00-0.99); HIV AB/AG Nonreactive (Nonreactive); HIV Num 1 0.07 S/CO (0.00-0.99); Hepatitis A Antibody IgM 0.25 Index (0-0.79); Hepatitis B Core Antibody Nonreactive (Nonreactive); Hepatitis B Surface Antigen Negative (Negative); ~HepC Num1 0.14 S/CO (0.00-0.79); ~Hepatitis A Antibody IgM Nonreactive (Nonreactive); ~Hepatitis C Antibody Nonreactive (Nonreactive)
[2024-05-03] MEDS: levETIRAcetam 500 MG TABLET PO ×2 (08:56→21:03)
[2024-05-03] MEDS: carvediloL 6.25 MG TABLET PO (08:56)
[2024-05-03] MEDS: 0.9 % Sodium Chloride Flush 3 ML SYRINGE IVFLUSH ×2 (08:56→21:19)
[2024-05-03 08:58] LABS: HBS Num2 12.08 mIU/mL (0-7.99); HBS Num3 12.25 mIU/mL (0-7.99); ~Hepatitis B Surface Antibody REACTIVE (Nonreactive)
[2024-05-03] MEDS: Morphine Sulfate 2 MG/ML CARTRIDGE IVPUSH (09:52)
--- NOTE | 2024-05-03 09:56 | P.PNTS_ITS ---
Subjective Subjective Date of Service: 05/03/24 Interval history: Patient seen this morning. Getting ready to go to hemodialysis. Briefly discussed large pericardial effusion and concern of this potentially causing hemodynamic instability especially with the weekend coming. Physical Exam Vital Signs: Vital Signs: Last Vital Signs Temp 97.2 F 05/03/24 08:00 Pulse 113 H 05/03/24 08:00 Resp 19 05/03/24 08:00 BP 100/72 05/03/24 08:00 Pulse Ox 90 L 05/03/24 08:00 O2 Del Method Nasal Cannula 05/03/24 08:00 O2 Flow Rate 4 05/03/24 08:00 Oxygen Flow Rate 2 05/01/24 16:16 BMI result Body Mass Index 29.1 Chest: Other: Chest breath sounds the bilateral, diminished bases GI: Other: Abdomen corpulent, soft, benign Extrem: Other: Right BKA stump dressing intact Procedures Date of Service Date of Service: 05/03/24 Progress Note: A&P Assessment and plan (1) Pericardial effusion: Status: Acute (2) Pericardial tamponade: Status: Acute Plan Patient was currently going to hemodialysis. As noted above because of the potential for hemodynamic compromise especially with the weekend and limited staff available, and Cardiology recommendation for drainage, patient will undergo pericardial window once dialysis is completed this morning.. 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 All questions answered. Consent signed. Time Spent With Patient Time: Total time managing care of this patient today ____ minutes. Quality Stroke Does the patient have a stroke diagnosis?: No VTE Prior VTE?: No VTE Risk Level:: Medical - moderate - high VTE Device Contraindication: N/A - Device Ordered VTE Drug Contraindication: Treatment Not Indicated
--- NOTE | 2024-05-03 10:44 | HO.PM.IMPN ---
Subjective Subjective Date of Service: 05/03/24 Interval History: Being followed for multiple medical issues including [id number]-[id number] pericardial effusion/purpuric rash/end-stage renal disease on hemodialysis Awake alert this morning, NPO for pericardial window, denies chest pain, no shortness of breath, no palpitations , 3rd middle finger discoloration unchanged pain is improving. No acute events overnight. Review of Systems All other system reviewed and are negative. Physical Exam Vital Signs: Vital Signs: Last Vital Signs Temp 97.2 F 05/03/24 08:00 Pulse 113 H 05/03/24 08:00 Resp 19 05/03/24 08:00 BP 100/72 05/03/24 08:00 Pulse Ox 90 L 05/03/24 08:00 O2 Del Method Nasal Cannula 05/03/24 08:00 O2 Flow Rate 4 05/03/24 08:00 Oxygen Flow Rate 2 05/01/24 16:16 BMI result Body Mass Index 29.1 Const: Other: General resting in bed,in no acute distress. Neck supple no JVD, no distended neck veins. CVS regular rate rhythm, Respiratory lungs clear to auscultation, diminished, no respiratory distress, no wheeze, no rhonchi. Gastrointestinal abdomen soft, non tender, bowel sounds audible Extremities right BKA dressing in place Neuro non focal , speech clear. Skin non blanchable rash back, upper extremities, lower extremity/thigh, left 3rd distal phalanx middle finger and, left 1st toe purplish discoloration, tender to palpation, see picture admission note. Psych appropriate affect. Objective Data Active Medications Acetaminophen (Acetaminophen 325 Mg Tablet) 650 mg PO Q6H PRN PRN Reason: Pain, Mild 1-3,fever,headache Albuterol Sulfate (Albuterol Sulfate 90 Mcg 8 Gm Inhaler) 2 puff INHALE RQ4H PRN PRN Reason: Shortness Of Breath Albuterol/Ipratropium (Albuterol/Iprat 2.5/0.5mg 3 Ml Ampul.Neb) 3 ml INHALE RQID PRN PRN Reason: Wheezing Allopurinol (Allopurinol 100 Mg Tablet) 100 mg PO MOWEFR@1600 NASREEN Atorvastatin Calcium (Atorvastatin Calcium 40 Mg Tablet) 40 mg PO MOWEFR@1600 NASRE[place] Atorvastatin Calcium (Atorvastatin Calcium 40 Mg Tablet) 40 mg PO SUTUTHSA@0900 [facility] Last Admin: 05/02/24 08:29 Dose: 40 mg Documented By: SUSAN Bisacodyl (Bisacodyl 10 Mg Supp.Rect) 10 mg OH DAILY PRN PRN Reason: Constipation Calcium Carbonate (Calcium Carbonate 750 Mg Tab.Chew) 750 mg PO Q4H PRN PRN Reason: Heartburn Carvedilol (Carvedilol 6.25 Mg Tablet) 6.25 mg PO BID [facility]; Protocol Last Admin: 05/03/24 08:56 Dose: 6.25 mg Documented By: ROXANNE Ceftriaxone Sodium (Ceftriaxone Sodium 1 Gm Vial) 1 gm IVPUSH Q24H [facility] Last Admin: 05/02/24 22:23 Dose: 1 gm Documented By: JP Dextrose (Dextrose 50 % 25 Gm/50 Ml Syringe) 25 gm IVPUSH Q15M PRN; Protocol PRN Reason: per Hypoglycemia Standing Ord. Last Admin: 05/02/24 03:57 Dose: 25 gm Documented By: JOSE JUAN Doxazosin Mesylate (Doxazosin Mesylate 2 Mg Tablet) 4 mg PO BEDTIME [facility]; Protocol Last Admin: 05/02/24 20:53 Dose: 4 mg Documented By: JP Fluticasone Propionate (Fluticasone Propionate Nasal 16 Gm Check) 1 spray NOSTRIL-B BID [facility] Last Admin: 05/03/24 08:57 Dose: Not Given Documented By: ROXANNE Non-Admin Reason: Patient Refused Fluticasone/Umeclidinium/Vilanterol (Fluticasone/Umeclidinium/Vilanterol 100/62.5/25 Blst.W.Dev) 1 puff INHALE RDAILY [facility] Last Admin: 05/02/24 08:06 Dose: 1 puff Documented By: ANNE Furosemide (Furosemide 40 Mg Tablet) 80 mg PO SUTUTHSA@0900 [facility]; Protocol Last Admin: 05/02/24 08:30 Dose: 80 mg Documented By: SUSAN Glucose (Glucose Gel 15 Gm Gel..Gram.) 15 gm PO Q15M PRN; Protocol PRN Reason: per Hypoglycemia Standing Ord. Vancomycin HCl 500 mg/ Sodium (Chloride) 110 mls @ 110 mls/hr IV Q24H [facility] Insulin Human Lispro (Insulin Lispro 100 Unit/Ml 3 Ml Vial) 0 unit SUBCUT Q6H [facility]; Protocol Last Admin: 05/03/24 05:16 Dose: Not Given Documented By: DAVID Non-Admin Reason: NPO Levetiracetam (Levetiracetam 500 Mg Tablet) 500 mg PO BID [facility] Last Admin: 05/03/24 08:56 Dose: 500 mg Documented By: ROXANNE Losartan Potassium (Losartan Potassium 25 Mg Tablet) 25 mg PO MOWEFR@1600 [facility]; Protocol Losartan Potassium (Losartan Potassium 25 Mg Tablet) 25 mg PO SUTUTHSA@0900 [facility]; Protocol Last Admin: 05/02/24 08:30 Dose: 25 mg Documented By: SUSAN Magnesium Hydroxide (Milk Of Magnesia 30 Ml Oral.Susp) 30 ml PO DAILY PRN PRN Reason: Constipation Melatonin (Melatonin 3 Mg Tablet) 6 mg PO BEDTIME PRN PRN Reason: Insomnia Morphine Sulfate (Morphine Sulfate 2 Mg/Ml Cartridge) 2 mg IVPUSH Q4H PRN; Protocol PRN Reason: Pain, Severe (Pain Scale 7-10) Last Admin: 05/03/24 09:52 Dose: 2 mg Documented By: ROXANNE Non-Formulary Medication (Sucroferric Oxyhydroxide [Velphoro]) 500 mg PO TID [facility] Omeprazole (Omeprazole 20 Mg Capsule.Dr) 20 mg PO DAILY@0630 [facility] Last Admin: 05/03/24 06:09 Dose: Not Given Documented By: DAVID Non-Admin Reason: NPO Ondansetron HCl (Ondansetron Hcl 4 Mg/2 Ml Vial) 4 mg IVPUSH Q8H PRN PRN Reason: Nausea and Vomiting Oxycodone HCl (Oxycodone Hcl Immed Release 5 Mg Tablet) 5 mg PO Q6H PRN PRN Reason: Pain, Moderate(Pain Scale 4-6) Last Admin: 05/02/24 01:23 Dose: 5 mg Documented By: JOSE JUAN Pharmacy Consult (Consult Rx Vancomycin Dosing) 1 each MISCELLANE DAILY PRN PRN Reason: Consult order Pregabalin (Pregabalin 75 Mg Capsule) 75 mg PO MOWEFR@1600 [facility] Pregabalin (Pregabalin 75 Mg Capsule) 75 mg PO SUTUTHSA@,15, [facility] Last Admin: 05/02/24 21:24 Dose: 75 mg Documented By: JP Lizama (Sennosides 8.6 Mg Tablet) 8.6 mg PO DAILY PRN PRN Reason: Constipation Sodium Chloride (0.9 % Sodium Chloride Flush 3 Ml Syringe) 3 ml IVFLUSH QSHIFT [facility] Last Admin: 05/03/24 08:56 Dose: 3 ml Documented By: ROXANNE Labs 05/03/24 06:13 05/03/24 06:13 Labs: Laboratory Results - last 24 hr 05/02/24 05/02/24 05/02/24 15:14 15:51 18:48 MCV MCH MCHC RDW Plt Count MPV Immature Gran % (Auto) Neut % (Auto) Lymph % (Auto) [place] % (Auto) Eos % (Auto) Baso % (Auto) Lymph # (Auto) [place] # (Auto) Eos # (Auto) Baso # (Auto) Abs Immat Gran (auto) Absolute Neuts (auto) Absolute Nucleated RBC Nucleated RBC % (auto) Anion Gap Estim Creat Clear Calc Estimated GFR POC Glucose 72 112 Random Glucose Calcium Rheumatoid Factor < 13.0 Hepatitis A IgM Ab Nonreactive Hep Bs Antigen Negative Hep Bs Antibody REACTIVE Hep B Core Total Ab Nonreactive Hepatitis C Ab (EIA) Nonreactive HIV 1&2 Ab/P24 Ag 4thGn Nonreactive 05/02/24 05/03/24 05/03/24 21:13 01:18 04:50 MCV MCH MCHC RDW Plt Count MPV Immature Gran % (Auto) Neut % (Auto) Lymph % (Auto) [place] % (Auto) Eos % (Auto) Baso % (Auto) Lymph # (Auto) [place] # (Auto) Eos # (Auto) Baso # (Auto) Abs Immat Gran (auto) Absolute Neuts (auto) Absolute Nucleated RBC Nucleated RBC % (auto) Anion Gap Estim Creat Clear Calc Estimated GFR POC Glucose 237 H 223 H 206 H Random Glucose Calcium Rheumatoid Factor Hepatitis A IgM Ab Hep Bs Antigen Hep Bs Antibody Hep B Core Total Ab Hepatitis C Ab (EIA) HIV 1&2 Ab/P24 Ag 4thGn 05/03/24 05/03/24 06:13 07:09 MCV 76.7 L MCH 23.9 L MCHC 31.2 RDW 18.2 H Plt Count 357 MPV 12.4 Immature Gran % (Auto) 0.9 H Neut % (Auto) 86.7 H Lymph % (Auto) 7.8 L [place] % (Auto) 4.5 Eos % (Auto) 0.0 Baso % (Auto) 0.1 Lymph # (Auto) 0.8 L [place] # (Auto) 0.5 Eos # (Auto) 0.0 Baso # (Auto) 0.0 Abs Immat Gran (auto) 0.09 H Absolute Neuts (auto) 8.8 H Absolute Nucleated RBC 0.000 Nucleated RBC % (auto) 0.0 Anion Gap 25 H Estim Creat Clear Calc 8.9 Estimated GFR 7 POC Glucose 225 H Random Glucose 238 H Calcium 8.2 L Rheumatoid Factor Hepatitis A IgM Ab Hep Bs Antigen Hep Bs Antibody Hep B Core Total Ab Hepatitis C Ab (EIA) HIV 1&2 Ab/P24 Ag 4thGn Microbiology Microbiology Results: Microbiology 05/01/24 17:33 Blood Culture - Preliminary Blood - Venous No growth after 24 hours. 05/01/24 16:51 Blood Culture - Preliminary Blood - Venous No growth after 24 hours. Assessment and Plan (1) Pericardial effusion: Status: Acute (2) ESRD needing dialysis: Status: Acute (3) Acute pericardial effusion: Status: Acute (4) Rash: Status: Acute (5) Hx of right BKA: Status: Acute Plan 69-year-old male with a PMH significant for?ESRD on HD M/W/F last dialyzed earlier today, insulin-dependent type 2 diabetes, peripheral vascular disease, s/p right BKA 2/ by Dr. Cannon, seizure disorder, HFrEF, HTN, HLD, chronically on 2L home O2, GERD, and ROBERT on CPAP who presents to the ED with?rash x2 days. Pt will be admitted to the hospital for treatment and further evaluation of new pericardial effusion and diffuse rash concerning for septic emboli vs vasculitis. Generalized Rash noted 7-10 days prior to admission No clinical change in last 24 hours ESR 92, CRP 19.06, trending down from 32.5 on April 05, 0.1 eosinophils ddx: Hydralazine induced vasculitis , systemic vasculitis , bacteremia /rule out septic emboli, cholesterol embolization syndrome had angiogram 2 months ago, small-vessel vasculitis, Anca associated, cryoglobulinemia ANCA vasculitides, SAIDA, cold agglutinin, total complement, cryoglobulin, hepatitis serology, antihistone antibody, HIV, ds DNA, rheumatoid factor, [employer] antibody sent Discontinue hydralazine, continue IV vancomycin and cefazolin, started 05/01/2024 One dose of empiric IV steroids given, since low suspicion for active infection, no fevers, no leukocytosis Follow blood cultures Echo showed no vegetations Case discussed with ID she recommend to continue current antibiotics/added respiratory viral pathogen Moderate to severe Pericardial effusion CTA of chest showed new large pericardial effusion/right pleural effusion with pleural thickening and right lower and middle lobe consolidation similar to prior . Echocardiogram showed severe biventricular dysfunction and [id number] pericardial effusion Clinically no sign/symptoms of tamponade Thoracic surgery planned to place pericardial window today Being followed by Cardiology Chronic hypoxic respiratory failure on 2 L of home oxygen/obstructive sleep apnea on CPAP No acute hypoxia. ESRD on HD // Continue Velphoro, Lasix, nephro consulted, Dr. Jalen eason Held Lasix 80 mg Monday and Monday due to soft blood pressure this morning Status post right BKA on 04/11 obtain vascular surgery consultation for dressing change, patient complain of pain, added Dilaudid for severe pain and oxycodone for moderate pain Chronic anemia hematocrit stable Insulin-dependent type 2 diabetes continue Sliding-scale insulin, resume Lantus 18 units at bedtime (home dose 22 units), Diabetic diet Seizure disorder Continue Keppra HLD/PAD aspirin held due to possible procedure, Continue statin HTN Continue carvedilol, losartan and hydralazine discontinued for possible hydralazine induced vasculitis Peripheral neuropathy Continue pregabalin full Code DVT Prophylaxis: Pneumatic compression due to possible surgical intervention Pt will require continued inpatient hospitalization for treatment of?acute pericardial effusion and diffuse rash concerning for vasculitis vs septic emboli, require expert consultation possible pericardial window, and monitoring of laboratory data, and hemodialysis, treatment can not be provided in less acute setting. Quality Stroke Does the patient have a stroke diagnosis?: No VTE Prior VTE?: No VTE Risk Level:: Medical - moderate - high VTE Device Contraindication: N/A - Device Ordered VTE Drug Contraindication: Treatment Not Indicated
[2024-05-03] MEDS: oxyCODONE HCl Immed Release 5 MG TABLET PO (11:18)
[2024-05-03] MEDS: HYDROmorphone HCl 0.5 MG/0.5 ML SYRINGE IVPUSH ×2 (12:17→21:09)
--- NOTE | 2024-05-03 12:56 | PM.PNCARD ---
Subjective Subjective Date of Service: 05/03/24 Interval history: Seen examined at bedside while on hemodialysis. Quite agitated and in pain due to right bjbau-kin-[id number] stump. He is saying that the dressing needs to be changed. He was given Dilaudid. He is tachycardic and hypotensive Physical Exam Vital Signs: Last Vital Signs Temp 97.2 F 05/03/24 08:00 Pulse 113 H 05/03/24 08:00 Resp 19 05/03/24 08:00 BP 100/72 05/03/24 08:00 Pulse Ox 90 L 05/03/24 08:00 O2 Del Method Nasal Cannula 05/03/24 08:00 O2 Flow Rate 4 05/03/24 08:00 Oxygen Flow Rate 2 05/01/24 16:16 BMI result Body Mass Index 29.1 GENERAL APPEARANCE: in severe pain due to right BKA. SKIN: rash leg HEART: no murmurs, regular rate and rhythm. LUNGS: clear to auscultation bilaterally. ABDOMEN: soft, nontender. EXTREMITIES: Right BKA. PERIPHERAL PULSES: equal. NEUROLOGIC: No gross deficits, AAO X 3 Objective Labs and Meds 05/03/24 19:11 05/03/24 19:11 Lab results: Laboratory Results - last 24 hr 05/02/24 05/02/24 05/02/24 15:14 15:51 18:48 WBC RBC Hgb Hct MCV MCH MCHC RDW Plt Count MPV Immature Gran % (Auto) Neut % (Auto) Lymph % (Auto) [place] % (Auto) Eos % (Auto) Baso % (Auto) Lymph # (Auto) [place] # (Auto) Eos # (Auto) Baso # (Auto) Abs Immat Gran (auto) Absolute Neuts (auto) Absolute Nucleated RBC Nucleated RBC % (auto) Sodium Potassium Chloride Carbon Dioxide Anion Gap BUN Creatinine Estim Creat Clear Calc Estimated GFR POC Glucose 72 112 Random Glucose Calcium Rheumatoid Factor < 13.0 Hepatitis A IgM Ab Nonreactive Hep Bs Antigen Negative Hep Bs Antibody REACTIVE Hep B Core Total Ab Nonreactive Hepatitis C Ab (EIA) Nonreactive HIV 1&2 Ab/P24 Ag 4thGn Nonreactive Blood Type Antibody Screen 05/02/24 05/03/24 05/03/24 21:13 01:18 04:50 WBC RBC Hgb Hct MCV MCH MCHC RDW Plt Count MPV Immature Gran % (Auto) Neut % (Auto) Lymph % (Auto) [place] % (Auto) Eos % (Auto) Baso % (Auto) Lymph # (Auto) [place] # (Auto) Eos # (Auto) Baso # (Auto) Abs Immat Gran (auto) Absolute Neuts (auto) Absolute Nucleated RBC Nucleated RBC % (auto) Sodium Potassium Chloride Carbon Dioxide Anion Gap BUN Creatinine Estim Creat Clear Calc Estimated GFR POC Glucose 237 H 223 H 206 H Random Glucose Calcium Rheumatoid Factor Hepatitis A IgM Ab Hep Bs Antigen Hep Bs Antibody Hep B Core Total Ab Hepatitis C Ab (EIA) HIV 1&2 Ab/P24 Ag 4thGn Blood Type Antibody Screen 05/03/24 05/03/24 05/03/24 06:13 07:09 10:23 WBC 10.2 RBC 3.43 L Hgb 8.2 L Hct 26.3 L MCV 76.7 L MCH 23.9 L MCHC 31.2 RDW 18.2 H Plt Count 357 MPV 12.4 Immature Gran % (Auto) 0.9 H Neut % (Auto) 86.7 H Lymph % (Auto) 7.8 L [place] % (Auto) 4.5 Eos % (Auto) 0.0 Baso % (Auto) 0.1 Lymph # (Auto) 0.8 L [place] # (Auto) 0.5 Eos # (Auto) 0.0 Baso # (Auto) 0.0 Abs Immat Gran (auto) 0.09 H Absolute Neuts (auto) 8.8 H Absolute Nucleated RBC 0.000 Nucleated RBC % (auto) 0.0 Sodium 137 Potassium 5.2 H D Chloride 97 Carbon Dioxide 20 L Anion Gap 25 H BUN 85 H Creatinine 7.65 H* Estim Creat Clear Calc 8.9 Estimated GFR 7 POC Glucose 225 H Random Glucose 238 H Calcium 8.2 L Rheumatoid Factor Hepatitis A IgM Ab Hep Bs Antigen Hep Bs Antibody Hep B Core Total Ab Hepatitis C Ab (EIA) HIV 1&2 Ab/P24 Ag 4thGn Blood Type A Positive Antibody Screen NEGATIVE Progress Note: A&P Assessment and plan (1) Pericardial effusion: Status: Acute (2) ESRD needing dialysis: Status: Acute Plan [age] year gentleman with complex medical issues who is on hemodialysis previously had MRSA and Enterococcus bacteremia. Echocardiography has shown hbboirxm-[id number] right-sided with some features consistent with tamponade. He is due to get bradycardia window today. Due to ESRD morphine should not be used. Dilaudid can be used for pain. He has biventricular dysfunction with severe LV and RV failure. Hypotension and tachycardia could be related to pericardial effusion and tamponade. I have advised the dialysis nurse that we should not remove too much fluid. He should get the pericardial window 1st and then can have repeat dialysis In a day or 2 Thank you for allowing me to participate in the care of your patient. Please feel free to contact me if you have any questions. Time Spent With Patient Time: Total time managing care of this patient today ____ minutes. Progress Note: Quality Stroke Does the patient have a stroke diagnosis?: No Procedures Date of Service Date of Service: 05/03/24
--- NOTE | 2024-05-03 13:05 | P.PNNP_ITS ---
Subjective Subjective Date of Service: 05/03/24 Interval history: Has [id number] pericardial effusion/purpuric rash/end-stage renal disease on hemodialysis. All recent data reviewed Physical Exam 2 Vital Signs: Vital Signs: Last Vital Signs Temp 97.2 F 05/03/24 08:00 Pulse 113 H 05/03/24 08:00 Resp 19 05/03/24 08:00 BP 100/72 05/03/24 08:00 Pulse Ox 90 L 05/03/24 08:00 O2 Del Method Nasal Cannula 05/03/24 08:00 O2 Flow Rate 4 05/03/24 08:00 Oxygen Flow Rate 2 05/01/24 16:16 BMI result Body Mass Index 29.1 Const: General: no acute distress Eyes: EOM: EOMs intact bilaterally Neck: Neck: Yes supple Resp: Auscultation: diminished lung sounds Cardio: Rate: regular rate GI: Palpation (GI): Soft to palpation Neuro: General: moves all extremities Objective Data Labs 05/03/24 06:13 05/03/24 06:13 Labs: Laboratory Results - last 24 hr 05/02/24 05/02/24 05/02/24 15:14 15:51 18:48 WBC RBC Hgb Hct MCV MCH MCHC RDW Plt Count MPV Immature Gran % (Auto) Neut % (Auto) Lymph % (Auto) [place] % (Auto) Eos % (Auto) Baso % (Auto) Lymph # (Auto) [place] # (Auto) Eos # (Auto) Baso # (Auto) Abs Immat Gran (auto) Absolute Neuts (auto) Absolute Nucleated RBC Nucleated RBC % (auto) Sodium Potassium Chloride Carbon Dioxide Anion Gap BUN Creatinine Estim Creat Clear Calc Estimated GFR POC Glucose 72 112 Random Glucose Calcium Rheumatoid Factor < 13.0 Hepatitis A IgM Ab Nonreactive Hep Bs Antigen Negative Hep Bs Antibody REACTIVE Hep B Core Total Ab Nonreactive Hepatitis C Ab (EIA) Nonreactive HIV 1&2 Ab/P24 Ag 4thGn Nonreactive Blood Type Antibody Screen 05/02/24 05/03/24 05/03/24 21:13 01:18 04:50 WBC RBC Hgb Hct MCV MCH MCHC RDW Plt Count MPV Immature Gran % (Auto) Neut % (Auto) Lymph % (Auto) [place] % (Auto) Eos % (Auto) Baso % (Auto) Lymph # (Auto) [place] # (Auto) Eos # (Auto) Baso # (Auto) Abs Immat Gran (auto) Absolute Neuts (auto) Absolute Nucleated RBC Nucleated RBC % (auto) Sodium Potassium Chloride Carbon Dioxide Anion Gap BUN Creatinine Estim Creat Clear Calc Estimated GFR POC Glucose 237 H 223 H 206 H Random Glucose Calcium Rheumatoid Factor Hepatitis A IgM Ab Hep Bs Antigen Hep Bs Antibody Hep B Core Total Ab Hepatitis C Ab (EIA) HIV 1&2 Ab/P24 Ag 4thGn Blood Type Antibody Screen 05/03/24 05/03/24 05/03/24 06:13 07:09 10:23 WBC 10.2 RBC 3.43 L Hgb 8.2 L Hct 26.3 L MCV 76.7 L MCH 23.9 L MCHC 31.2 RDW 18.2 H Plt Count 357 MPV 12.4 Immature Gran % (Auto) 0.9 H Neut % (Auto) 86.7 H Lymph % (Auto) 7.8 L [place] % (Auto) 4.5 Eos % (Auto) 0.0 Baso % (Auto) 0.1 Lymph # (Auto) 0.8 L [place] # (Auto) 0.5 Eos # (Auto) 0.0 Baso # (Auto) 0.0 Abs Immat Gran (auto) 0.09 H Absolute Neuts (auto) 8.8 H Absolute Nucleated RBC 0.000 Nucleated RBC % (auto) 0.0 Sodium 137 Potassium 5.2 H D Chloride 97 Carbon Dioxide 20 L Anion Gap 25 H BUN 85 H Creatinine 7.65 H* Estim Creat Clear Calc 8.9 Estimated GFR 7 POC Glucose 225 H Random Glucose 238 H Calcium 8.2 L Rheumatoid Factor Hepatitis A IgM Ab Hep Bs Antigen Hep Bs Antibody Hep B Core Total Ab Hepatitis C Ab (EIA) HIV 1&2 Ab/P24 Ag 4thGn Blood Type A Positive Antibody Screen NEGATIVE Microbiology Microbiology Results: Microbiology 05/01/24 17:33 Blood - Venous Blood Culture - Preliminary No growth after 24 hours. 05/01/24 16:51 Blood - Venous Blood Culture - Preliminary No growth after 24 hours. Procedures Date of Service Date of Service: 05/03/24 Assessment & Plan Assessment and plan (1) ESRD needing dialysis: Status: Acute Plan Usually gets HD on MWF; Due HD today Needs more UF; Shall UF for 2 hrs again tomorrow Renal Diet( 2 Gm Na/K/ Phos restricted/fluid restriction) Phos binders with meals. C/W rest of current management Progress Note: Quality Stroke Does the patient have a stroke diagnosis?: No
[2024-05-03 13:31] LABS: Glucose, Whole Blood 145 mg/dL (60-115)
--- NOTE | 2024-05-03 14:44 | P.OP_ITS ---
Operative Note Operative Note Date of Service: 05/03/24 Narrative: Preoperative diagnosis: [] Large pericardial effusion, pericardial tamponade Postop diagnosis: [] The same Procedure [] subxiphoid pericardial window, left femoral artery a line placement Surgeon: [] Lucio Chief Librarian Branch: [] Teodoro Type of Anesthesia: [MAC Indication for surgery: [] Approximately 500 cc of bloody fluid were retrieved. Specimen sent for variety of cultures as well as cytology. While in the preop area, patient became acutely hypotensive with a systolic pressure in the 40s as well as tachycardic with emergent transport to the OR for pericardial window. Prior to induction of anesthesia, left groin was prepped and draped and using Seldinger technique with Ero kit left femoral a line placed and secured to the skin using 2-0 Prolene suture and sterile dressing applied. Good waveform and p attern demonstrated. Findings: [] Patient brought to the operating room, placed on operative table in supine position, after an adequate level of MA C anesthesia was induced, the chest and upper abdomen were prepped and draped in usual sterile fashion. Wound was infiltrated at the beginning at the end with 0.5% Marcaine/1% lidocaine. An upper midline incision was made and extended just to the left of the xiphoid and carried down through skin, subcutaneous tissue, and linea alba. Extraperitoneal dissection was performed and the pericardium was identified. Initially a needle was placed in this and aspirated bloody fluid which was sent for cultures. Next using Bovie, pericardiotomy was made a pericardial window was then fascia with Bovie. Specimen sent to pathology of pericardium as well. Copious amounts of bloody fluid retrieved. Specimens also obtained for cytology. Roughly 500 cc retrieved. Through a separate left upper quadrant stab wound incision, Martinez catheter was e ntered into the abdominal cavity and advanced into the pericardium. This was secured to the skin using 2-0 nylon. Wound was irrigated, secured hemostasis, and closed in the following manner; parasternal fascia was reapproximated using 1. Maxon suture. Midline incision was closed using running looped 1. PDS. Skin was closed using interrupted inverted dermal 3-0 Vicryl sutures followed by Steri-Strips and sterile dressings. Sponge, needle, and instrument counts reported correct. Patient tolerated the procedure well and emerged directly to ICU in stable condition. EBL minimal
[2024-05-03 17:23] LABS: Myeloperoxidase Antibody <1.0 AI; Proteinase 3 PR3 Antibodies <1.0 AI
[2024-05-03 18:05] LABS: Glucose, Whole Blood 136 mg/dL (60-115)
--- NOTE | 2024-05-03 19:12 | PC.NURSE ---
Patient arrived to unit from PACU at approx 1825, alert and oriented x3 confused to situation, vague at times, jenny zeroed multiple times and pleth inconsistent, automated BP assessed and stable in the 120-130's systolic, scant bloody drainage noted from Pericardial window drainage system placed in OR, O2 low 86-87 on arrival, patient on 2l at home, placed on 2l via NC and O2 sat increased to 90-91%, LS clear dim at bases, abdomen soft nontender, patient anuric on dialysis at baseline.
[2024-05-03 19:13] LABS: Glucose, Whole Blood 129 mg/dL (60-115)
[2024-05-03 19:17] LABS: MANUAL DIFF FLAG NO
[2024-05-03 19:20] LABS: Basophils Percent Auto 0.1 % (0-2); Eosinophils Percent Auto 0.2 % (0-4); Hematocrit 26.3 % (42.0-52.0); Hemoglobin 8.2 g/dl (14.0-18.0); Imm Gran Abs Auto 0.12 X10*3/uL (0.00-0.03); Lymphocytes Absolute Auto 1.4 X10*3/uL (1.2-4.9); Lymphocytes Percent Auto 11.7 % (20-40); Mean Corpuscular HGB Conc 31.2 g/dl (31.0-36.0); Mean Corpuscular Hemoglobin 23.8 pg (27.0-33.0); Mean Corpuscular Volume 76.5 fL (80.0-98.0); Mean Platelet Volume 12.6 fL (9.4-12.4); Monocytes Absolute Auto 0.7 X10*3/uL (0.1-1.2); Monocytes Percent Auto 5.8 % (2-11); NRBC Pct Auto 0.2 /100WBC (0.0-0.2); Neutrophils Absolute Auto 9.4 x10*3/uL (2.0-8.3); Neutrophils Percent Auto 81.2 % (45-73); Platelet Count 375 X10*3/uL (160-400); Red Blood Count 3.44 X10*6/uL (4.60-5.80); Red Cell Distribution Width 18.4 % (11.0-16.0); White Blood Count 11.5 X10*3/uL (4.8-10.8)
[2024-05-03 19:21] LABS: VBG Base Excess 1.1 mmol/L; VBG HCO3 24 mmol/L (22-26); VBG pCO2 33 mmHg; VBG pH 7.46 (7.32-7.43); VBG pO2 111 mmHg
[2024-05-03 19:22] LABS: Venous Blood Gas Refer to POC result
[2024-05-03 19:31] LABS: Vancomycin Random 19.9 mcg/mL (15-20)
[2024-05-03 19:34] LABS: Lactic Acid 1.6 mmol/L (0.5-2.0)
[2024-05-03 19:36] LABS: Anion Gap 22 (12-20); Blood Urea Nitrogen 53 mg/dL (9-16); Calcium 7.9 mg/dL (8.4-10.2); Carbon Dioxide 22 mmol/L (22-29); Chloride 99 mmol/L (96-108); Creatinine Clr Calc Pharmacy 12.5; Estimated Glomerular Filt Rate 10; Glucose Random 133 mg/dL (60-115); Sodium 138 mmol/L (135-145)
--- NOTE | 2024-05-03 19:46 | P.PNCC_ITS ---
Critical Care Event Note Summary Date of Service: 05/03/24 Code activated: No Narrative: This case had a high probability of a clinically significant, sudden, or life threatening deterioration of this patient's condition which required my full and direct attention, intervention and personal management. Critical Care Time (minutes): 30 Comment: ?The patient is a 69 year old male with a past medical history of end-stage renal disease ( HD M/W/F),? insulin-dependent type 2 diabetes, peripheral vascular disease s/p? right BKA on 04/11/2024 by , seizure disorder,? congestive heart failure, hypertension, hyperlipidemia, hypoventilation syndrome on 2L? at home, GERD and ROBERT? who presented to the emergency department on 2024 with purpura rash and shortness of breath? and admitted to Hospital Medicine for management of new moderate to severe pericardial effusion? and diffuse rash concerning for septic emboli versus vasculitis.? ?Today patient was scheduled for a pericardiocentesis with removal of 500 cc of bloody fluid,? while in PACU,? patient developed hypotension with systolic of 40s,? with tachycardia,? requiring emergent pericardial window by thoracic maria fernanda bailey, Dr Valdes.? ?Post pericardial window patient is being? hemodynamic monitor in the intensive care unit.?Patient alert and oriented x 3, Blood pressure stable , with no vasopressor requirement? Plan:? ?Will obtain? VBG, CBC and chemistries Family was updated at bedside
[2024-05-03 19:56] LABS: Albumin Level 2.7 g/dL (3.5-5.0)
[2024-05-03] MEDS: cefTRIAXone sodium 1 GM VIAL IVPUSH (21:03)
[2024-05-03] MEDS: Albumin Human 25 % 100 ML IV (21:06)
[2024-05-03 21:31] LABS: Glucose, Whole Blood 159 mg/dL (60-115)
--- NOTE | 2024-05-03 21:38 | P.CNID_ITS ---
History of Present Illness Data of Consult Service Date: 05/03/24 Requesting physician: Lily Candelario Primary Care Provider: Shayla Augustine NP HPI Reason for consult: rash,pericarditis He presented to ER with rash. I discussed case with Rena Martinez in ER. He presented on 05/01 with rash over arms,legs and torso. He has left great toe purplish area as well as raised maculopapular rash arms ,legs and buttock area. He has had right BKA on 04/11. He has had rash since 04/27 and progression overnight. It was not pruritic or painful. His blood cultures are negative. He has had some local wound cultures MRSA and enterococcus faecalis. He develped pericardial effusion and now is getting pericardial window with Dr Valdes. Review of Systems 2 Review of Systems: Yes all other systems are reviewed and are negative [facility] Past Medical History Medical History ESRD needing dialysis Right sided weakness Dehiscence of wound Peripheral arterial disease Cellulitis of right foot Hypertension Dry gangrene HFrEF (heart failure with reduced ejection fraction) ESRD (end stage renal disease) Chronic combined systolic and diastolic CHF (congestive heart failure) Chronic pericardial effusion Arthritis Asthma Restless leg syndrome Acute on chronic systolic and diastolic heart failure, NYHA class 3 Anemia ESRD (end stage renal disease) Occlusive thrombus Pulmonary edema ROBERT (obstructive sleep apnea) Type 2 diabetes mellitus Hyperlipidemia Hypertension A-V fistula ESRD on dialysis Falling Family History Family History Father No problems noted. Mother No problems noted. Family history: reviewed and not pertinent Surgical History Surgical History Hx of right BKA Status post transmetatarsal amputation of right foot History of transmetatarsal amputation of foot History of surgery H/O colonoscopy Recurrent pleural effusion Pleural effusion on right (07/13/23) Social History Social History Household Members: Children Household Members Other:: son Housing: Apartment Are you a primary pediatric critical care nurse to a significant other at home: No Do you presently have visiting nurse or other home services: No Alcohol intake: never Comment: counts correct Patient Tobacco Use Status: Former Tobacco user Tobacco use type: Cigarette Second Hand Smoke Exposure: No Advance Directives Date on File: 04/13/23 service: No Meds Allergies Allergy/AdvReac Type Severity Reaction Status Date / Time Iodinated Contrast Media Allergy Severe Facial Verified 05/01/24 16:21 [Contrast Dye] Swelling Active Medications: Current Medications Acetaminophen (Acetaminophen 325 Mg Tablet) 650 mg PO Q6H PRN PRN Reason: Pain, Mild 1-3,fever,headache Albuterol Sulfate (Albuterol Sulfate 90 Mcg 8 Gm Inhaler) 2 puff INHALE RQ4H PRN PRN Reason: Shortness Of Breath Albuterol/Ipratropium (Albuterol/Iprat 2.5/0.5mg 3 Ml Ampul.Neb) 3 ml INHALE RQID PRN PRN Reason: Wheezing Allopurinol (Allopurinol 100 Mg Tablet) 100 mg PO MOWEFR@1600 [facility] Last Admin: 05/03/24 18:42 Dose: Not Given Atorvastatin Calcium (Atorvastatin Calcium 40 Mg Tablet) 40 mg PO MOWEFR@1600 [facility] Last Admin: 05/03/24 18:42 Dose: Not Given Atorvastatin Calcium (Atorvastatin Calcium 40 Mg Tablet) 40 mg PO SUTUTHSA@0900 [facility] Last Admin: 05/02/24 08:29 Dose: 40 mg Bisacodyl (Bisacodyl 10 Mg Supp.Rect) 10 mg MI DAILY PRN PRN Reason: Constipation Calcium Carbonate (Calcium Carbonate 750 Mg Tab.Chew) 750 mg PO Q4H PRN PRN Reason: Heartburn Ceftriaxone Sodium (Ceftriaxone Sodium 1 Gm Vial) 1 gm IVPUSH Q24H [facility] Last Admin: 05/03/24 21:03 Dose: 1 gm Dextrose (Dextrose 50 % 25 Gm/50 Ml Syringe) 25 gm IVPUSH Q15M PRN; Protocol PRN Reason: per Hypoglycemia Standing Ord. Last Admin: 05/02/24 03:57 Dose: 25 gm Fluticasone/Umeclidinium/Vilanterol (Fluticasone/Umeclidinium/Vilanterol 100/62.5/25 Blst.W.Dev) 1 puff INHALE RDAILY [facility] Last Admin: 05/03/24 11:51 Dose: Not Given Glucose (Glucose Gel 15 Gm Gel..Gram.) 15 gm PO Q15M PRN; Protocol PRN Reason: per Hypoglycemia Standing Ord. Hydromorphone HCl (Hydromorphone Hcl 0.5 Mg/0.5 Ml Syringe) 0.5 mg IVPUSH Q4H PRN; Protocol PRN Reason: Pain, Severe (Pain Scale 7-10) Last Admin: 05/03/24 21:09 Dose: 0.5 mg Vancomycin HCl 500 mg/ Sodium (Chloride) 110 mls @ 110 mls/hr IV Q24H [facility] Albumin Human (Kedbumin 25 %) 100 mls @ 100 mls/hr IV Q6H [facility] Stop: 05/04/24 15:59 Last Admin: 05/03/24 21:06 Dose: 100 mls/hr Insulin Glargine (Insulin Glargine,Hum.Rec.Anlog 100 Unit/Ml 10 Ml Vial) 18 unit SUBCUT BEDTIME [facility] Last Admin: 05/03/24 20:33 Dose: Not Given Insulin Human Lispro (Insulin Lispro 100 Unit/Ml 3 Ml Vial) 0 unit SUBCUT Q6H [facility]; Protocol Last Admin: 05/03/24 18:41 Dose: Not Given Levetiracetam (Levetiracetam 500 Mg Tablet) 500 mg PO BID [facility] Last Admin: 05/03/24 21:03 Dose: 500 mg Lidocaine HCl (Lidocaine Hcl 1 % Mpf 2 Ml Vial) 0.5 ml SUBCUT ONCE ONE Stop: 05/04/24 06:01 Magnesium Hydroxide (Milk Of Magnesia 30 Ml Oral.Susp) 30 ml PO DAILY PRN PRN Reason: Constipation Melatonin (Melatonin 3 Mg Tablet) 6 mg PO BEDTIME PRN PRN Reason: Insomnia Non-Formulary Medication (Sucroferric Oxyhydroxide [Velphoro]) 500 mg PO TID [facility] Omeprazole (Omeprazole 20 Mg Capsule.Dr) 20 mg PO DAILY@0630 [facility] Last Admin: 05/03/24 06:09 Dose: Not Given Ondansetron HCl (Ondansetron Hcl 4 Mg/2 Ml Vial) 4 mg IVPUSH Q8H PRN PRN Reason: Nausea and Vomiting Pharmacy Consult (Consult Rx Vancomycin Dosing) 1 each MISCELLANE DAILY PRN PRN Reason: Consult order Senna (Sennosides 8.6 Mg Tablet) 8.6 mg PO DAILY PRN PRN Reason: Constipation Sodium Chloride (0.9 % Sodium Chloride Flush 3 Ml Syringe) 3 ml [facility]FLUSH [facility] Last Admin: 05/03/24 21:19 Dose: 3 ml Home Medications ?Medication ?Instructions ?Recorded ?Confirmed ?Last Taken ?Type albuterol sulfate 90 mcg/actuation 2 puff inhalation Q4H PRN 04/19/22 05/01/24 03/05/24 History aerosol inhaler Shortness Of Breath allopurinol 100 mg tablet 100 mg PO MOWEFR@1600 04/19/22 05/01/24 03/18/24 History atorvastatin 40 mg tablet 40 mg PO SUTUTHSA@0900 04/19/22 05/01/24 03/19/24 History doxazosin 4 mg tablet 4 mg PO BEDTIME 04/19/22 05/01/24 03/18/24 History furosemide 80 mg tablet 80 mg PO SUTUTHSA@0900 04/19/22 05/01/24 03/19/24 History ipratropium 0.5 mg-albuterol 3 mg 3 ml inhalation QID PRN Wheezing 04/19/22 05/01/24 Unknown History (2.5 mg base)/3 mL nebulization soln omeprazole 20 mg capsule,delayed 20 mg PO DAILY@0630 04/19/22 05/01/24 03/19/24 History release insulin lispro 100 unit/mL 1 sliding scale dose subcut TIDAC 04/10/23 05/01/24 03/18/24 History subcutaneous pen aspirin 81 mg tablet,delayed 81 mg PO SUTUTHSA@09 06/20/23 05/01/24 03/19/24 History release pregabalin 75 mg capsule 75 mg PO SUTUTHSA@,,06/20/23 05/01/24 03/19/24 History hydralazine 25 mg tablet 25 mg PO SUTUTHSA@,,01/24/24 05/01/24 03/19/24 History sucroferric oxyhydroxide 500 mg 500 mg PO TID 01/24/24 05/01/24 03/19/24 History chewable tablet (Velphoro) acetaminophen 325 mg tablet 650 mg PO Q4H PRN PAIN/FEVER 04/05/24 05/01/24 Unknown History aspirin 81 mg tablet,delayed 81 mg PO MOWEFR@159904/05/24 05/01/24 Unknown History release atorvastatin 40 mg tablet 40 mg PO MOWEFR@159904/05/24 05/01/24 Unknown History bisacodyl 10 mg rectal suppository 10 mg MI DAILY PRN Constipation 04/05/24 05/01/24 Unknown History (Dulcolax (bisacodyl)) carvedilol 6.25 mg tablet 6.25 mg PO BID 04/05/24 05/01/24 Unknown History fluticasone fur. 100 mcg-umeclid 1 inh inhalation DAILY 04/05/24 05/01/24 Unknown History 62.5 mcg-vilant 25 mcg inhalat.powder (Trelegy Ellipta) furosemide 80 mg tablet 80 mg PO MOWEFR@159904/05/24 05/01/24 Unknown History hydralazine 25 mg tablet 25 mg PO MOWEFR@159904/05/24 05/01/24 Unknown History losartan 25 mg tablet 25 mg PO MOWEFR@159904/05/24 05/01/24 Unknown History losartan 25 mg tablet 25 mg PO SUTUTHSA@0900 04/05/24 05/01/24 Unknown History oxycodone 5 mg tablet 5 mg PO Q6H PRN pain 04/05/24 05/01/24 Unknown History pregabalin 75 mg capsule 75 mg PO MOWEFR@159904/05/24 05/01/24 Unknown History sennosides 8.6 mg tablet (senna) 8.6 mg PO DAILY PRN Constipation 04/05/24 05/01/24 Unknown History insulin glargine 100 unit/mL (3 22 unit subcut BEDTIME 05/01/24 05/01/24 Unknown History mL) subcutaneous pen (Lantus Solostar U-100 Insulin) Physical Exam 2 Vital Signs: Vital Signs: Last Vital Signs Temp 98.0 F 05/03/24 20:00 Pulse 87 05/03/24 21:22 Resp 21 H 05/03/24 21:22 BP 137/90 H 05/03/24 21:22 Pulse Ox 98 05/03/24 21:22 O2 Del Method Room Air 05/03/24 21:22 O2 Flow Rate 2 05/03/24 20:00 Oxygen Flow Rate 2 05/01/24 16:16 BMI result Body Mass Index 29.1 Const: General: cooperative HEENT: Head: Yes normal to inspection Face and sinus: Yes normal facial exam Mouth: Normal oral and palatal mucosa present Teeth and gingiva: d entition normal Eyes: General: appearance normal, both eyes and all related structures P upils: Equal, round and reactive pupils present Resp: Effort & Inspection: normal respiratory effort Cardio: Rate: regular rate Rhythm: regular rhythm GI: Palpation (GI): Soft to palpation and nontender : General: Yes no CVA tenderness Back/Spine/Pelvis: Back: no CVA tenderness Skin: Other: maculopapular rash arms,legs,feet,dark left great toe,right BKA General skin exam: no rashes or lesions noted Neuro: General: moves all extremities Cranial nerves: Yes Equal, round and reactive pupils present Extrem: General: Yes normal to inspection Psych: Appearance: grossly normal Results Labs 05/03/24 19:11 05/03/24 19:11 Labs: Short CBC 05/03/24 05/03/24 Range/Units 06:13 19:11 WBC 10.2 11.5 H (4.8-10.8) X10*3/uL Hgb 8.2 L 8.2 L (14.0-18.0) g/dl Hct 26.3 L 26.3 L (42.0-52.0) % Plt Count 357 375 (160-400) X10*3/uL BMP 05/03/24 05/03/24 06:13 19:11 Sodium 137 138 Potassium 5.2 H D 5.0 Chloride 97 99 Carbon Dioxide 20 L 22 BUN 85 H 53 H Creatinine 7.65 H* 5.49 H* Calcium 8.2 L 7.9 L Liver Function 05/03/24 Range/Units 19:11 Albumin 2.7 L (3.5-5.0) g/dL Microbiology Microbiology Results: Microbiology 05/01/24 17:33 Blood - Venous Blood Culture - Preliminary No growth after 48 hours. 05/01/24 16:51 Blood - Venous Blood Culture - Preliminary No growth after 48 hours. 05/03/24 Unknown Pericardial Fluid Gram Stain - Final Assessment and Plan (1) Pericardial tamponade: Status: Acute (2) Pericardial effusion: Status: Acute (3) ESRD needing dialysis: Status: Acute (4) Rash: Status: Acute Plan Possible embolic staph or strep or vasculitis more likely or possible some cholesterol emboli also. Would continue Ceftriaxone and Vancomycin. Await blood cultures. Culture pericardial fluid. Check respiratory viral panel Biopsy rash.
[2024-05-03] MEDS: Insulin Lispro 100 UNIT/ML 3 ML VIAL SUBCUT (22:09)
[2024-05-04] VITALS (17 sets, daily range): BP systolic 107–149; BP diastolic 47–77; PULSE 71–80; RESP 10–20; TEMP 36.3–36.8; O2SAT 91–97
[2024-05-04] MEDS: HYDROmorphone HCl 0.5 MG/0.5 ML SYRINGE IVPUSH ×5 (01:19→22:06)
[2024-05-04] MEDS: Albumin Human 25 % 100 ML IV ×3 (02:45→16:29)
[2024-05-04] MEDS: Omeprazole 20 MG CAPSULE.DR PO (05:22)
[2024-05-04 05:53] LABS: VBG Base Excess 1.2 mmol/L; VBG HCO3 26 mmol/L (22-26); VBG pCO2 45 mmHg; VBG pH 7.37 (7.32-7.43); VBG pO2 73 mmHg
[2024-05-04 05:55] LABS: MANUAL DIFF FLAG NO
[2024-05-04 05:57] LABS: Eosinophils Percent Auto 0.2 % (0-4); Hematocrit 24.9 % (42.0-52.0); Hemoglobin 7.9 g/dl (14.0-18.0); Imm Gran Abs Auto 0.15 X10*3/uL (0.00-0.03); Imm Gran Pct Auto 1.3 % (0.0-0.4); Lymphocytes Percent Auto 8.7 % (20-40); Mean Corpuscular HGB Conc 31.7 g/dl (31.0-36.0); Mean Corpuscular Hemoglobin 24.4 pg (27.0-33.0); Mean Corpuscular Volume 76.9 fL (80.0-98.0); Mean Platelet Volume 11.7 fL (9.4-12.4); Monocytes Absolute Auto 0.8 X10*3/uL (0.1-1.2); Monocytes Percent Auto 6.9 % (2-11); NRBC Pct Auto 0.4 /100WBC (0.0-0.2); Neutrophils Absolute Auto 9.4 x10*3/uL (2.0-8.3); Neutrophils Percent Auto 82.9 % (45-73); Platelet Count 353 X10*3/uL (160-400); Red Blood Count 3.24 X10*6/uL (4.60-5.80); Red Cell Distribution Width 18.4 % (11.0-16.0); White Blood Count 11.3 X10*3/uL (4.8-10.8)
[2024-05-04 06:22] LABS: Alanine Aminotransferase < 6 U/L (0-40); Albumin Level 3.4 g/dL (3.5-5.0); Alkaline Phosphatase 145 U/L (39-117); Anion Gap 21 (12-20); Aspartate Amino Transferase 29 U/L (5-37); Bilirubin Total 0.4 mg/dL (0.0-1.0); Blood Urea Nitrogen 60 mg/dL (9-16); Calcium 8.1 mg/dL (8.4-10.2); Carbon Dioxide 23 mmol/L (22-29); Chloride 99 mmol/L (96-108); Creatinine Clr Calc Pharmacy 10.8; Estimated Glomerular Filt Rate 9; Glucose Random 189 mg/dL (60-115); Magnesium 1.9 mg/dL (1.6-2.6); Phosphorus 7.9 mg/dL (2.7-4.5); Potassium 4.6 mmol/L (3.3-5.1); Sodium 138 mmol/L (135-145); Total Protein 6.9 g/dL (6.5-8.0)
--- NOTE | 2024-05-04 06:41 | PC.NURSE ---
2000: Upon initial?assessment, patient mostly uzbek speaking, medical massage therapist?services called to?assist this RN. Patient alert and oriented x4, albeit?vague to situation; I had water drained from my heart , per patient. Patient reports 10/10 pain to right BKA, DRUM DRIER OPERATOR notified. Moderately restless, RENE spontaneously. Afib on tele, HR 100s-120s. Pericardial window to subxiphoid, surgical dressing clean dry and intact, minimal bloody drainage?into mcknight catheter bag. A-line to left fem, waveform not appropriate despite multiple attempts at calibration. Per DRUM DRIER OPERATOR, cuff pressure will be used. Lung sounds clear, diminished?in the bases, on 2L NC. Patient anuric, last dialysis?05/03. Skin warm and dry, patient lightly ashen in color. Right BKA dressing clean, dry, and intact. Bruise to right middle finger. Patient able to reposition self in bed. Bed locked in lowest position, bed alarm on, call montilla within reach. Family updated by ERIK Jacobson at bedside. 0000: Patient?placed on CPAP by RT for sleeping. Converted to SR on tele, HR 70s-80s. 0200: Patient repeatedly pulling off CPAP overnight, patient education provided. Patient refused CPAP, patient placed back on 2L NC. 0500: This RN attempted to draw labs from A-line, no blood return and unable to flush. Per DRUM DRIER OPERATOR, A-line removed without complication.? 0645: Surgical team arrived to round on patient. Updated team on any overnight events. Now: Report given to oncoming RN. Bed locked in lowest position, bed alarm on, call montilla within reach.?
--- NOTE | 2024-05-04 07:09 | PM.PNTS ---
Subjective Subjective Date of Service: 05/04/24 Interval history: Patient in ICU. Uneventful evening. Incisional discomfort but no other acute issues. Pericardial drain scan output Physical Exam Vital Signs: Vital Signs: Last Vital Signs Temp 97.4 F 05/04/24 04:00 Pulse 79 05/04/24 06:00 Resp 15 05/04/24 06:00 BP 141/70 H 05/04/24 06:00 Pulse Ox 97 05/04/24 06:00 O2 Del Method Nasal Cannula 05/04/24 06:00 O2 Flow Rate 2 05/04/24 06:00 Oxygen Flow Rate 2 05/01/24 16:16 BMI result Body Mass Index 29.1 Chest: Other: Dressing clean dry and intact. Procedures Date of Service Date of Service: 05/04/24 Progress Note: A&P Assessment and plan (1) Postop check: Status: Acute (2) Status post creation of pericardial window: Status: Acute Plan We will keep pericardial drain in through weekend. Diet as tolerated from surgical perspective. Would encourage out of bed/incentive spirometry Time Spent With Patient Time: Total time managing care of this patient today ____ minutes. Quality Stroke Does the patient have a stroke diagnosis?: No VTE Prior VTE?: No VTE Risk Level:: Medical - moderate - high VTE Device Contraindication: N/A - Device Ordered VTE Drug Contraindication: Treatment Not Indicated
[2024-05-04 07:23] LABS: Glucose, Whole Blood 179 mg/dL (60-115)
[2024-05-04] MEDS: Atorvastatin Calcium 40 MG TABLET PO (07:51)
[2024-05-04] MEDS: levETIRAcetam 500 MG TABLET PO ×2 (07:51→22:07)
[2024-05-04] MEDS: 0.9 % Sodium Chloride Flush 3 ML SYRINGE IVFLUSH ×3 (07:51→22:10)
[2024-05-04] MEDS: Insulin Lispro 100 UNIT/ML 3 ML VIAL SUBCUT ×2 (08:09→22:09)
--- NOTE | 2024-05-04 09:49 | P.PNCC_ITS ---
Subjective Subjective Date of Service: 05/04/24 Interval History: 69-year-old gentleman with underlying end-stage renal disease on hemodialysis Monday, thus, PVD status post right BKA, seizure disorder, congestive heart failure, hypertension, ROBERT/ohs, on supplemental oxygen at 2 L admitted on 05/01/2024 with dyspnea and purpuric rash, also noted to have new moderate to severe pericardial effusion with concern for tamponade. Patient had pericardiocentesis with removal approximately 500 cc of bloody fluid resultant hypotension requiring emergent pericardial window on 05/03/2024, monitored in the intensive care unit in the immediate postop period. No events overnight. Critical Care Time (minutes): 0 Physical Exam 2 Vital Signs: Vital Signs: Last Vital Signs Temp 97.4 F 05/04/24 04:00 Pulse 75 05/04/24 09:00 Resp 15 05/04/24 09:00 BP 143/77 H 05/04/24 09:00 Pulse Ox 97 05/04/24 09:00 O2 Del Method Nasal Cannula 05/04/24 09:00 O2 Flow Rate 2 05/04/24 09:00 Oxygen Flow Rate 2 05/01/24 16:16 BMI result Body Mass Index 29.1 Const: General: no acute distress, alert and awake Eyes: Sclerae: sclerae normal EOM: EOMs intact bilaterally Neck: Neck: Yes no lymphadenopathy, Yes trachea midline and Yes supple Chest: Other: Pericardial drain with little output Resp: Effort & Inspection: normal respiratory effort and no respiratory distress Auscultation: clear to auscultation bilaterally Cardio: Rate: regular rate Rhythm: regular rhythm Heart sounds: no gallops, no murmurs and no rubs GI: Palpation (GI): Soft to palpation and Other GI palpation findings present ( Nontender) Auscultation: normal bowel sounds Extrem: Other: Right BKA General: No clubbing and No cyanosis Objective Data Labs 05/04/24 05:50 05/04/24 05:50 Labs: Laboratory Results - last 24 hr 05/02/24 05/03/24 05/03/24 04:21 10:23 13:25 WBC RBC Hgb Hct MCV MCH MCHC RDW Plt Count MPV Immature Gran % (Auto) Neut % (Auto) Lymph % (Auto) [place] % (Auto) Eos % (Auto) Baso % (Auto) Lymph # (Auto) [place] # (Auto) Eos # (Auto) Baso # (Auto) Abs Immat Gran (auto) Absolute Neuts (auto) Absolute Nucleated RBC Nucleated RBC % (auto) VBG pH VBG pCO2 VBG pO2 VBG HCO3 VBG O2 Saturation VBG Base Excess Sodium Potassium Chloride Carbon Dioxide Anion Gap BUN Creatinine Estim Creat Clear Calc Estimated GFR POC Glucose 145 H Random Glucose Lactic Acid Calcium Phosphorus Magnesium Total Bilirubin AST ALT Alkaline Phosphatase Total Protein Albumin Random Vancomycin Proteinase 3 (PR3) Ab <1.0 Myeloperoxidase Ab <1.0 Blood Type A Positive Antibody Screen NEGATIVE 05/03/24 05/03/24 05/03/24 18:01 19:10 19:11 WBC 11.5 H RBC 3.44 L Hgb 8.2 L Hct 26.3 L MCV 76.5 L MCH 23.8 L MCHC 31.2 RDW 18.4 H Plt Count 375 MPV 12.6 H Immature Gran % (Auto) 1.0 H Neut % (Auto) 81.2 H Lymph % (Auto) 11.7 L [place] % (Auto) 5.8 Eos % (Auto) 0.2 Baso % (Auto) 0.1 Lymph # (Auto) 1.4 [place] # (Auto) 0.7 Eos # (Auto) 0.0 Baso # (Auto) 0.0 Abs Immat Gran (auto) 0.12 H Absolute Neuts (auto) 9.4 H Absolute Nucleated RBC 0.020 H Nucleated RBC % (auto) 0.2 VBG pH VBG pCO2 VBG pO2 VBG HCO3 VBG O2 Saturation VBG Base Excess Sodium 138 Potassium 5.0 Chloride 99 Carbon Dioxide 22 Anion Gap 22 H BUN 53 H Creatinine 5.49 H* Estim Creat Clear Calc 12.5 Estimated GFR 10 POC Glucose 136 H 129 H Random Glucose 133 H Lactic Acid 1.6 Calcium 7.9 L Phosphorus Magnesium Total Bilirubin AST ALT Alkaline Phosphatase Total Protein Albumin 2.7 L Random Vancomycin 19.9 Proteinase 3 (PR3) Ab Myeloperoxidase Ab Blood Type Antibody Screen 05/03/24 05/03/24 05/04/24 19:17 21:28 05:50 WBC 11.3 H RBC 3.24 L Hgb 7.9 L Hct 24.9 L MCV 76.9 L MCH 24.4 L MCHC 31.7 RDW 18.4 H Plt Count 353 MPV 11.7 Immature Gran % (Auto) 1.3 H Neut % (Auto) 82.9 H Lymph % (Auto) 8.7 L [place] % (Auto) 6.9 Eos % (Auto) 0.2 Baso % (Auto) 0.0 Lymph # (Auto) 1.0 L [place] # (Auto) 0.8 Eos # (Auto) 0.0 Baso # (Auto) 0.0 Abs Immat Gran (auto) 0.15 H Absolute Neuts (auto) 9.4 H Absolute Nucleated RBC 0.050 H Nucleated RBC % (auto) 0.4 H VBG pH 7.46 H 7.37 VBG pCO2 33 45 VBG pO2 111 73 VBG HCO3 24 26 VBG O2 Saturation 99.0 92.0 VBG Base Excess 1.1 1.2 Sodium 138 Potassium 4.6 Chloride 99 Carbon Dioxide 23 Anion Gap 21 H BUN 60 H Creatinine 6.30 H* Estim Creat Clear Calc 10.8 Estimated GFR 9 POC Glucose 159 H Random Glucose 189 H Lactic Acid Calcium 8.1 L Phosphorus 7.9 H Magnesium 1.9 Total Bilirubin 0.4 AST 29 ALT < 6 Alkaline Phosphatase 145 H Total Protein 6.9 Albumin 3.4 L Random Vancomycin Proteinase 3 (PR3) Ab Myeloperoxidase Ab Blood Type Antibody Screen 05/04/24 07:18 WBC RBC Hgb Hct MCV MCH MCHC RDW Plt Count MPV Immature Gran % (Auto) Neut % (Auto) Lymph % (Auto) [place] % (Auto) Eos % (Auto) Baso % (Auto) Lymph # (Auto) [place] # (Auto) Eos # (Auto) Baso # (Auto) Abs Immat Gran (auto) Absolute Neuts (auto) Absolute Nucleated RBC Nucleated RBC % (auto) VBG pH VBG pCO2 VBG pO2 VBG HCO3 VBG O2 Saturation VBG Base Excess Sodium Potassium Chloride Carbon Dioxide Anion Gap BUN Creatinine Estim Creat Clear Calc Estimated GFR POC Glucose 179 H Random Glucose Lactic Acid Calcium Phosphorus Magnesium Total Bilirubin AST ALT Alkaline Phosphatase Total Protein Albumin Random Vancomycin Proteinase 3 (PR3) Ab Myeloperoxidase Ab Blood Type Antibody Screen Microbiology Microbiology Results: Microbiology 05/01/24 17:33 Blood - Venous Blood Culture - Preliminary No growth after 48 hours. 05/01/24 16:51 Blood - Venous Blood Culture - Preliminary No growth after 48 hours. 05/03/24 Unknown Pericardial Fluid Gram Stain - Final Progress Note: A&P Assessment and plan (1) Pericardial tamponade: Status: Acute (2) Chronic combined systolic and diastolic CHF (congestive heart failure): Status: Chronic (3) ESRD needing dialysis: Status: Acute (4) PVD (peripheral vascular disease): Status: Acute Plan Assessment: 69-year-old gentleman with underlying ESRD on hemodialysis, diabetes mellitus, PVD status post BKA, supplemental oxygen dependent 2 L, ROBERT/ohs admitted on 05/01/2024 with dyspnea and rash concern for vasculitis. Course further complicated by pericardial effusion with tamponade physiology now status post pericardial window Plan: Neuro: No acute issues. Underlying seizure disorder, continue on Keppra. Cardiac: Pericardial effusion with tamponade physiology status post pericardial window. Thoracic surgery service care appreciated. Underlying history of PVD and chronic combined systolic and diastolic congestive heart failure. Pulmonary: No acute issues. Renal: Underlying ESRD on hemodialysis. Nephrology service care appreciated. Continue hemodialysis. Endo: No acute issues. GI: No acute issues. ID: Empiric coverage for possible septic emboli. Heme/Onc: No acute issues. Psych: No acute issues. Miscellaneous: ? Vasculitis rheumatologic workup is pending. Prophylaxis: Heparin Diet: Diabetic Quality Stroke Does the patient have a stroke diagnosis?: No VTE Prior VTE?: No VTE Risk Level:: Medical - moderate - high VTE Device Contraindication: N/A - Device Ordered VTE Drug Contraindication: Treatment Not Indicated
[2024-05-04 11:41] LABS: Glucose, Whole Blood 115 mg/dL (60-115)
[2024-05-04] MEDS: Heparin Sodium,Porcine 5,000 UNIT/ML VIAL 5000 UNIT SUBCUT ×2 (12:04→22:09)
--- NOTE | 2024-05-04 12:12 | HO.POSTANES ---
Post Anesthesia Evaluation Post Anesthesia Evaluation Date of Service: 05/04/24 Vital Signs: Vital Signs Temp Pulse Resp BP Pulse Ox O2 Del Method O2 Flow Rate 05/04/24 12:00 98.0 F 73 16 139/73 97 Nasal Cannula 2 05/04/24 11:00 71 20 128/71 91 L Nasal Cannula 2 05/04/24 10:00 75 20 149/74 H 92 Nasal Cannula 2 05/04/24 09:00 75 15 143/77 H 97 Nasal Cannula 2 05/04/24 08:00 74 18 142/64 H 97 Nasal Cannula 2 05/04/24 07:00 73 18 133/73 97 Nasal Cannula 2 05/04/24 06:00 79 15 141/70 H 97 Nasal Cannula 2 05/04/24 05:22 16 05/04/24 04:55 72 12 128/75 92 Nasal Cannula 2 05/04/24 04:00 97.4 F 73 12 133/70 92 Nasal Cannula 2 05/04/24 03:23 77 12 128/65 92 Nasal Cannula 2 05/04/24 01:19 18 05/04/24 01:00 78 16 142/74 H 91 L Nasal Cannula 2 Anesthesia: Monitored Pain Control: Satisfactory Nausea/Vomiting: None Hydration: Adequate Anesthesia-Related Issues: No Anes. Related Issues
[2024-05-04 12:13] LABS: Venous Blood Gas Refer to POC result
--- NOTE | 2024-05-04 12:25 | PC.NURSE ---
Assumed care of patient 0700 Pt able to take pills crushed in apple sauce. Pt provided bed bath with CHG wipes Pt moved from room 261 to 255 for dialysis session. Dialysis started 11:00 Plan for transfer to [facility] after dialysis. Right BKA site dressing changed. Moderate amount of serosangineous drainage to suture line site. Area of dehiscence with yellow/pink wound bed. Skin appears dark brown surrounding site. see skin photos for right BKA site
--- NOTE | 2024-05-04 12:28 | HO.SKINPHOTO ---
Location: right BKA, distal/anterior view Category: surgical site Location: right BKA, posterior view Category: surgical site
--- NOTE | 2024-05-04 12:30 | PM.PNCARD ---
Subjective Subjective Date of Service: 05/04/24 Interval history: Seen and examined at bedside. Status post pericardial window emergently for tamponade yesterday. Hemodynamically stabilize but quite confused and complaining of leg pain on the right side. Physical Exam Vital Signs: Last Vital Signs Temp 98.0 F 05/04/24 12:00 Pulse 73 05/04/24 12:00 Resp 16 05/04/24 12:00 BP 139/73 05/04/24 12:00 Pulse Ox 97 05/04/24 12:00 O2 Del Method Nasal Cannula 05/04/24 12:00 O2 Flow Rate 2 05/04/24 12:00 Oxygen Flow Rate 2 05/01/24 16:16 BMI result Body Mass Index 29.1 GENERAL APPEARANCE: Confused. SKIN: rash leg HEART: no murmurs, regular rate and rhythm. LUNGS: clear to auscultation bilaterally. ABDOMEN: soft, nontender. EXTREMITIES: Right BKA. PERIPHERAL PULSES: equal. NEUROLOGIC: No gross deficits, AAO X 3 Objective Labs and Meds 05/04/24 05:50 05/04/24 05:50 Lab results: Laboratory Results - last 24 hr 05/02/24 05/03/24 05/03/24 04:21 13:25 18:01 WBC RBC Hgb Hct MCV MCH MCHC RDW Plt Count MPV Immature Gran % (Auto) Neut % (Auto) Lymph % (Auto) [place] % (Auto) Eos % (Auto) Baso % (Auto) Lymph # (Auto) [place] # (Auto) Eos # (Auto) Baso # (Auto) Abs Immat Gran (auto) Absolute Neuts (auto) Absolute Nucleated RBC Nucleated RBC % (auto) VBG pH VBG pCO2 VBG pO2 VBG HCO3 VBG O2 Saturation VBG Base Excess Sodium Potassium Chloride Carbon Dioxide Anion Gap BUN Creatinine Estim Creat Clear Calc Estimated GFR POC Glucose 145 H 136 H Random Glucose Lactic Acid Calcium Phosphorus Magnesium Total Bilirubin AST ALT Alkaline Phosphatase Total Protein Albumin Random Vancomycin Proteinase 3 (PR3) Ab <1.0 Myeloperoxidase Ab <1.0 05/03/24 05/03/24 05/03/24 19:10 19:11 19:17 WBC 11.5 H RBC 3.44 L Hgb 8.2 L Hct 26.3 L MCV 76.5 L MCH 23.8 L MCHC 31.2 RDW 18.4 H Plt Count 375 MPV 12.6 H Immature Gran % (Auto) 1.0 H Neut % (Auto) 81.2 H Lymph % (Auto) 11.7 L [place] % (Auto) 5.8 Eos % (Auto) 0.2 Baso % (Auto) 0.1 Lymph # (Auto) 1.4 [place] # (Auto) 0.7 Eos # (Auto) 0.0 Baso # (Auto) 0.0 Abs Immat Gran (auto) 0.12 H Absolute Neuts (auto) 9.4 H Absolute Nucleated RBC 0.020 H Nucleated RBC % (auto) 0.2 VBG pH 7.46 H VBG pCO2 33 VBG pO2 111 VBG HCO3 24 VBG O2 Saturation 99.0 VBG Base Excess 1.1 Sodium 138 Potassium 5.0 Chloride 99 Carbon Dioxide 22 Anion Gap 22 H BUN 53 H Creatinine 5.49 H* Estim Creat Clear Calc 12.5 Estimated GFR 10 POC Glucose 129 H Random Glucose 133 H Lactic Acid 1.6 Calcium 7.9 L Phosphorus Magnesium Total Bilirubin AST ALT Alkaline Phosphatase Total Protein Albumin 2.7 L Random Vancomycin 19.9 Proteinase 3 (PR3) Ab Myeloperoxidase Ab 05/03/24 05/04/24 05/04/24 21:28 05:50 07:18 WBC 11.3 H RBC 3.24 L Hgb 7.9 L Hct 24.9 L MCV 76.9 L MCH 24.4 L MCHC 31.7 RDW 18.4 H Plt Count 353 MPV 11.7 Immature Gran % (Auto) 1.3 H Neut % (Auto) 82.9 H Lymph % (Auto) 8.7 L [place] % (Auto) 6.9 Eos % (Auto) 0.2 Baso % (Auto) 0.0 Lymph # (Auto) 1.0 L [place] # (Auto) 0.8 Eos # (Auto) 0.0 Baso # (Auto) 0.0 Abs Immat Gran (auto) 0.15 H Absolute Neuts (auto) 9.4 H Absolute Nucleated RBC 0.050 H Nucleated RBC % (auto) 0.4 H VBG pH 7.37 VBG pCO2 45 VBG pO2 73 VBG HCO3 26 VBG O2 Saturation 92.0 VBG Base Excess 1.2 Sodium 138 Potassium 4.6 Chloride 99 Carbon Dioxide 23 Anion Gap 21 H BUN 60 H Creatinine 6.30 H* Estim Creat Clear Calc 10.8 Estimated GFR 9 POC Glucose 159 H 179 H Random Glucose 189 H Lactic Acid Calcium 8.1 L Phosphorus 7.9 H Magnesium 1.9 Total Bilirubin 0.4 AST 29 ALT < 6 Alkaline Phosphatase 145 H Total Protein 6.9 Albumin 3.4 L Random Vancomycin Proteinase 3 (PR3) Ab Myeloperoxidase Ab 05/04/24 11:33 WBC RBC Hgb Hct MCV MCH MCHC RDW Plt Count MPV Immature Gran % (Auto) Neut % (Auto) Lymph % (Auto) [place] % (Auto) Eos % (Auto) Baso % (Auto) Lymph # (Auto) [place] # (Auto) Eos # (Auto) Baso # (Auto) Abs Immat Gran (auto) Absolute Neuts (auto) Absolute Nucleated RBC Nucleated RBC % (auto) VBG pH VBG pCO2 VBG pO2 VBG HCO3 VBG O2 Saturation VBG Base Excess Sodium Potassium Chloride Carbon Dioxide Anion Gap BUN Creatinine Estim Creat Clear Calc Estimated GFR POC Glucose 115 Random Glucose Lactic Acid Calcium Phosphorus Magnesium Total Bilirubin AST ALT Alkaline Phosphatase Total Protein Albumin Random Vancomycin Proteinase 3 (PR3) Ab Myeloperoxidase Ab Progress Note: A&P Assessment and plan (1) Pericardial effusion: Status: Acute (2) ESRD needing dialysis: Status: Acute Plan [age] year gentleman with complex medical issues who is on hemodialysis previously had MRSA and Enterococcus bacteremia. Echocardiography has shown [id number] right-sided with some features consistent with tamponade. He is status post pericardial window at this point. He was hemodynamically unstable before that but improved after window was placed. Hemodynamics have improved but he continues to be confused. He was given some morphine yesterday which could have played a role in confusion too. On broad-spectrum antibiotics. He also has biventricular dysfunction on echocardiography. As he stabilizes further we can start some guideline directed medical therapy. Currently we can not do further workup on him but as he improves we can consider ischemic evaluation. Thank you for allowing me to participate in the care of your patient. Please feel free to contact me if you have any questions. Time Spent With Patient Time: Total time managing care of this patient today ____ minutes. Progress Note: Quality Stroke Does the patient have a stroke diagnosis?: No Procedures Date of Service Date of Service: 05/04/24
[2024-05-04] MEDS: ondansetron HCL 4 MG/2 ML VIAL IVPUSH (14:05)
[2024-05-04 15:38] LABS: Glucose, Whole Blood 144 mg/dL (60-115)
[2024-05-04 21:15] LABS: Glucose, Whole Blood 202 mg/dL (60-115)
[2024-05-04] MEDS: cefTRIAXone sodium 1 GM VIAL IVPUSH (22:07)
[2024-05-04] MEDS: Melatonin 3 MG TABLET 6 MG PO (22:08)
[2024-05-04] MEDS: Insulin Glargine,Hum.rec.anlog 100 UNIT/ML 10 ML VIAL 18 UNIT SUBCUT (22:09)
[2024-05-05 03:30] VITALS: BP 102/52; PULSE 72; RESP 18; TEMP 36; O2SAT 97
[2024-05-05] MEDS: HYDROmorphone HCl 0.5 MG/0.5 ML SYRINGE IVPUSH ×5 (05:27→21:55)
[2024-05-05] MEDS: Heparin Sodium,Porcine 5,000 UNIT/ML VIAL 5000 UNIT SUBCUT ×3 (05:27→20:55)
[2024-05-05 07:15] LABS: MANUAL DIFF FLAG NO
[2024-05-05 07:25] LABS: Basophils Percent Auto 0.1 % (0-2); Eosinophils Absolute Auto 0.1 X10*3/uL (0.0-0.4); Eosinophils Percent Auto 0.6 % (0-4); Hematocrit 26.4 % (42.0-52.0); Hemoglobin 8.1 g/dl (14.0-18.0); Imm Gran Abs Auto 0.19 X10*3/uL (0.00-0.03); Imm Gran Pct Auto 1.3 % (0.0-0.4); Lymphocytes Absolute Auto 1.5 X10*3/uL (1.2-4.9); Lymphocytes Percent Auto 10.1 % (20-40); Mean Corpuscular HGB Conc 30.7 g/dl (31.0-36.0); Mean Corpuscular Hemoglobin 24.1 pg (27.0-33.0); Mean Corpuscular Volume 78.6 fL (80.0-98.0); Mean Platelet Volume 12.5 fL (9.4-12.4); Monocytes Percent Auto 6.6 % (2-11); NRBC Pct Auto 0.5 /100WBC (0.0-0.2); Neutrophils Absolute Auto 11.9 x10*3/uL (2.0-8.3); Neutrophils Percent Auto 81.3 % (45-73); Platelet Count 367 X10*3/uL (160-400); Red Blood Count 3.36 X10*6/uL (4.60-5.80); Red Cell Distribution Width 18.6 % (11.0-16.0); White Blood Count 14.6 X10*3/uL (4.8-10.8)
[2024-05-05 07:28] LABS: Glucose, Whole Blood 86 mg/dL (60-115)
[2024-05-05 07:45] VITALS: BP 137/74; PULSE 72; RESP 20; TEMP 36.1; O2SAT 99
[2024-05-05] MEDS: Fluticasone/Umeclidinium/Vilanterol 100/62.5/25 BLST.W.DEV 1 PUFF INHALE (07:54)
[2024-05-05 07:55] VITALS: PULSE 62; RESP 18; O2SAT 94
[2024-05-05 07:57] LABS: Albumin Level 3.5 g/dL (3.5-5.0); Anion Gap 23 (12-20); Blood Urea Nitrogen 77 mg/dL (9-16); Calcium 8.4 mg/dL (8.4-10.2); Carbon Dioxide 22 mmol/L (22-29); Chloride 101 mmol/L (96-108); Creatinine Clr Calc Pharmacy 8.1; Estimated Glomerular Filt Rate 6; Glucose Random 91 mg/dL (60-115); Magnesium 1.9 mg/dL (1.6-2.6); Phosphorus 8.6 mg/dL (2.7-4.5); Potassium 4.5 mmol/L (3.3-5.1); Sodium 141 mmol/L (135-145)
[2024-05-05 08:53] LABS: VBG Base Excess 5.8 mmol/L; VBG HCO3 30 mmol/L (22-26); VBG pCO2 41 mmHg; VBG pH 7.46 (7.32-7.43); VBG pO2 130 mmHg
[2024-05-05 08:53] LABS: Venous Blood Gas Refer to POC result
--- NOTE | 2024-05-05 09:22 | P.PNGS_ITS ---
Subjective Subjective Date of Service: 05/05/24 Interval history: Patient resting comfortably with no acute distress, pericardial tube draining serosanguineous thin fluid, approximately 100 mL last shift Physical Exam 2 Vital Signs: Vital Signs: Last Vital Signs Temp 97.0 F 05/05/24 07:45 Pulse 62 05/05/24 07:55 Resp 18 05/05/24 07:55 BP 137/74 05/05/24 07:45 Pulse Ox 99 05/05/24 07:45 O2 Del Method Nasal Cannula 05/05/24 07:45 O2 Flow Rate 2 05/05/24 07:45 Oxygen Flow Rate 2 05/01/24 16:16 BMI result Body Mass Index 29.1 Const: General: no acute distress Chest: Other: Drain site clean and intact, binder in place Resp: Effort & Inspection: normal respiratory effort Objective Data Active Medications Acetaminophen (Acetaminophen 325 Mg Tablet) 650 mg PO Q6H PRN PRN Reason: Pain, Mild 1-3,fever,headache Albuterol Sulfate (Albuterol Sulfate 90 Mcg 8 Gm Inhaler) 2 puff INHALE RQ4H PRN PRN Reason: Shortness Of Breath Albuterol/Ipratropium (Albuterol/Iprat 2.5/0.5mg 3 Ml Ampul.Neb) 3 ml INHALE RQID PRN PRN Reason: Wheezing Allopurinol (Allopurinol 100 Mg Tablet) 100 mg PO MOWEFR@1600 [facility] Last Admin: 05/03/24 18:42 Dose: Not Given Documented By: BRIT Non-Admin Reason: Off Unit: Surgery Atorvastatin Calcium (Atorvastatin Calcium 40 Mg Tablet) 40 mg PO MOWEFR@1600 [facility] Last Admin: 05/03/24 18:42 Dose: Not Given Documented By: BRIT Non-Admin Reason: Off Unit: Surgery Atorvastatin Calcium (Atorvastatin Calcium 40 Mg Tablet) 40 mg PO SUTUTHSA@0900 [facility] Last Admin: 05/04/24 07:51 Dose: 40 mg Documented By: GARCIA Bisacodyl (Bisacodyl 10 Mg Supp.Rect) 10 mg [place] DAILY PRN PRN Reason: Constipation Calcium Carbonate (Calcium Carbonate 750 Mg Tab.Chew) 750 mg PO Q4H PRN PRN Reason: Heartburn Ceftriaxone Sodium (Ceftriaxone Sodium 1 Gm Vial) 1 gm IVPUSH Q24H [facility] Last Admin: 05/04/24 22:07 Dose: 1 gm Documented By: SOURAV Dextrose (Dextrose 50 % 25 Gm/50 Ml Syringe) 25 gm IVPUSH Q15M PRN; Protocol PRN Reason: per Hypoglycemia Standing Ord. Last Admin: 05/02/24 03:57 Dose: 25 gm Documented By: LAFLAMC Fluticasone/Umeclidinium/Vilanterol (Fluticasone/Umeclidinium/Vilanterol 100/62.5/25 Blst.W.Dev) 1 puff INHALE RDAILY [facility] Last Admin: 05/05/24 07:54 Dose: 1 puff Documented By: BLASCLakeisha Glucose (Glucose Gel 15 Gm Gel..Gram.) 15 gm PO Q15M PRN; Protocol PRN Reason: per Hypoglycemia Standing Ord. Heparin Sodium (Porcine) (Heparin Sodium,Porcine 5,000 Unit/Ml Vial) 5,000 unit SUBCUT Q8H [facility] Last Admin: 05/05/24 05:27 Dose: 5,000 unit Documented By: SAMIRA Hydromorphone HCl (Hydromorphone Hcl 0.5 Mg/0.5 Ml Syringe) 0.5 mg IVPUSH Q4H PRN; Protocol PRN Reason: Pain, Severe (Pain Scale 7-10) Last Admin: 05/05/24 05:27 Dose: 0.5 mg Documented By: SAMIRA Vancomycin HCl 500 mg/ Sodium (Chloride) 110 mls @ 110 mls/hr IV Q24H [facility] Insulin Glargine (Insulin Glargine,Hum.Rec.Anlog 100 Unit/Ml 10 Ml Vial) 18 unit SUBCUT BEDTIME [facility] Last Admin: 05/04/24 22:09 Dose: 18 unit Documented By: SOURAV Insulin Human Lispro (Insulin Lispro 100 Unit/Ml 3 Ml Vial) 0 unit SUBCUT QIDACHS [facility]; Protocol Last Admin: 05/05/24 08:46 Dose: Not Given Documented By: TRISTAN Non-Admin Reason: No Insulin Coverage Levetiracetam (Levetiracetam 500 Mg Tablet) 500 mg PO BID [facility] Last Admin: 05/04/24 22:07 Dose: 500 mg Documented By: SOURAV Magnesium Hydroxide (Milk Of Magnesia 30 Ml Oral.Susp) 30 ml PO DAILY PRN PRN Reason: Constipation Melatonin (Melatonin 3 Mg Tablet) 6 mg PO BEDTIME PRN PRN Reason: Insomnia Last Admin: 05/04/24 22:08 Dose: 6 mg Documented By: SOURAV Non-Formulary Medication (Sucroferric Oxyhydroxide [Velphoro]) 500 mg PO TID [facility] Omeprazole (Omeprazole 20 Mg Capsule.Dr) 20 mg PO DAILY@0630 [facility] Last Admin: 05/05/24 05:36 Dose: Not Given Documented By: SAMIRA Non-Admin Reason: Patient Refused Ondansetron HCl (Ondansetron Hcl 4 Mg/2 Ml Vial) 4 mg IVPUSH Q8H PRN PRN Reason: Nausea and Vomiting Last Admin: 05/04/24 14:05 Dose: 4 mg Documented By: GARCIA Pharmacy Consult (Consult Rx Vancomycin Dosing) 1 each MISCELLANE DAILY PRN PRN Reason: Consult order Senna (Sennosides 8.6 Mg Tablet) 8.6 mg PO DAILY PRN PRN Reason: Constipation Sodium Chloride (0.9 % Sodium Chloride Flush 3 Ml Syringe) 3 ml IVFLUSH QSHIFT [facility] Last Admin: 05/04/24 22:10 Dose: 3 ml Documented By: SOURAV Labs 05/05/24 06:54 05/05/24 06:54 Labs: Laboratory Results - last 24 hr 05/04/24 05/04/24 05/04/24 11:33 15:33 20:52 MCV MCH MCHC RDW Plt Count MPV Immature Gran % (Auto) Neut % (Auto) Lymph % (Auto) [place] % (Auto) Eos % (Auto) Baso % (Auto) Lymph # (Auto) [place] # (Auto) Eos # (Auto) Baso # (Auto) Abs Immat Gran (auto) Absolute Neuts (auto) Absolute Nucleated RBC Nucleated RBC % (auto) VBG pH VBG pCO2 VBG pO2 VBG HCO3 VBG O2 Saturation VBG Base Excess Anion Gap Estim Creat Clear Calc Estimated GFR POC Glucose 115 144 H 202 H Random Glucose Calcium Phosphorus Magnesium Albumin 05/05/24 05/05/24 05/05/24 06:54 07:21 08:49 MCV 78.6 L MCH 24.1 L MCHC 30.7 L RDW 18.6 H Plt Count 367 MPV 12.5 H Immature Gran % (Auto) 1.3 H Neut % (Auto) 81.3 H Lymph % (Auto) 10.1 L [place] % (Auto) 6.6 Eos % (Auto) 0.6 Baso % (Auto) 0.1 Lymph # (Auto) 1.5 [place] # (Auto) 1.0 Eos # (Auto) 0.1 Baso # (Auto) 0.0 Abs Immat Gran (auto) 0.19 H Absolute Neuts (auto) 11.9 H Absolute Nucleated RBC 0.080 H Nucleated RBC % (auto) 0.5 H VBG pH 7.46 H VBG pCO2 41 VBG pO2 130 VBG HCO3 30 H VBG O2 Saturation 100.0 VBG Base Excess 5.8 Anion Gap 23 H Estim Creat Clear Calc 8.1 Estimated GFR 6 POC Glucose 86 Random Glucose 91 Calcium 8.4 Phosphorus 8.6 H Magnesium 1.9 Albumin 3.5 Microbiology Microbiology Results: Microbiology 05/03/24 Unknown Gram Stain - Final Pericardial Fluid Routine Culture - Final No growth after 2 days Anaerobic Culture - Preliminary No growth to date. Procedures Date of Service Date of Service: 05/05/24 Progress Note: A&P Assessment and plan (1) Status post creation of pericardial window: Status: Acute Plan Continue pericardial drain to gravity bag drainage. Continue incentive spirometry. Time Spent With Patient Time: Total time managing care of this patient today ____ minutes. Quality Stroke Does the patient have a stroke diagnosis?: No VTE Prior VTE?: No VTE Risk Level:: Medical - moderate - high VTE Device Contraindication: N/A - Device Ordered VTE Drug Contraindication: Treatment Not Indicated
[2024-05-05] MEDS: levETIRAcetam 500 MG TABLET PO ×2 (09:53→20:55)
[2024-05-05] MEDS: Atorvastatin Calcium 40 MG TABLET PO (09:53)
[2024-05-05] MEDS: 0.9 % Sodium Chloride Flush 3 ML SYRINGE IVFLUSH ×2 (09:54→17:06)
--- NOTE | 2024-05-05 10:09 | HO.PM.IMPN ---
Subjective Subjective Date of Service: 05/05/24 Interval History: right bka pain Physical Exam Vital Signs: Vital Signs: Last Vital Signs Temp 97.0 F 05/05/24 07:45 Pulse 62 05/05/24 07:55 Resp 18 05/05/24 07:55 BP 137/74 05/05/24 07:45 Pulse Ox 99 05/05/24 07:45 O2 Del Method Nasal Cannula 05/05/24 07:45 O2 Flow Rate 2 05/05/24 07:45 Oxygen Flow Rate 2 05/01/24 16:16 BMI result Body Mass Index 29.1 GENERAL APPEARANCE: Confused. SKIN: rash leg HEART: no murmurs, regular rate and rhythm. LUNGS: clear to auscultation bilaterally. ABDOMEN: soft, nontender. EXTREMITIES: Right BKA. PERIPHERAL PULSES: equal. NEUROLOGIC: No gross deficits, AAO X 3 Objective Data Active Medications Acetaminophen (Acetaminophen 325 Mg Tablet) 650 mg PO Q6H PRN PRN Reason: Pain, Mild 1-3,fever,headache Albuterol Sulfate (Albuterol Sulfate 90 Mcg 8 Gm Inhaler) 2 puff INHALE RQ4H PRN PRN Reason: Shortness Of Breath Albuterol/Ipratropium (Albuterol/Iprat 2.5/0.5mg 3 Ml Ampul.Neb) 3 ml INHALE RQID PRN PRN Reason: Wheezing Allopurinol (Allopurinol 100 Mg Tablet) 100 mg PO MOWEFR@1600 [facility] Last Admin: 05/03/24 18:42 Dose: Not Given Documented By: BRIT Non-Admin Reason: Off Unit: Surgery Atorvastatin Calcium (Atorvastatin Calcium 40 Mg Tablet) 40 mg PO MOWEFR@1600 [facility] Last Admin: 05/03/24 18:42 Dose: Not Given Documented By: BRIT Non-Admin Reason: Off Unit: Surgery Atorvastatin Calcium (Atorvastatin Calcium 40 Mg Tablet) 40 mg PO SUTUTHSA@0900 [facility] Last Admin: 05/05/24 09:53 Dose: 40 mg Documented By: TRISTAN Bisacodyl (Bisacodyl 10 Mg Supp.Rect) 10 mg [place] DAILY PRN PRN Reason: Constipation Calcium Carbonate (Calcium Carbonate 750 Mg Tab.Chew) 750 mg PO Q4H PRN PRN Reason: Heartburn Ceftriaxone Sodium (Ceftriaxone Sodium 1 Gm Vial) 1 gm IVPUSH Q24H [facility] Last Admin: 05/04/24 22:07 Dose: 1 gm Documented By: SOURAV Dextrose (Dextrose 50 % 25 Gm/50 Ml Syringe) 25 gm IVPUSH Q15M PRN; Protocol PRN Reason: per Hypoglycemia Standing Ord. Last Admin: 05/02/24 03:57 Dose: 25 gm Documented By: LAFLAMC Fluticasone/Umeclidinium/Vilanterol (Fluticasone/Umeclidinium/Vilanterol 100/62.5/25 Blst.W.Dev) 1 puff INHALE RDAILY [facility] Last Admin: 05/05/24 07:54 Dose: 1 puff Documented By: BLALONG Glucose (Glucose Gel 15 Gm Gel..Gram.) 15 gm PO Q15M PRN; Protocol PRN Reason: per Hypoglycemia Standing Ord. Heparin Sodium (Porcine) (Heparin Sodium,Porcine 5,000 Unit/Ml Vial) 5,000 unit SUBCUT Q8H [facility] Last Admin: 05/05/24 05:27 Dose: 5,000 unit Documented By: SAMIRA Hydromorphone HCl (Hydromorphone Hcl 0.5 Mg/0.5 Ml Syringe) 0.5 mg IVPUSH Q4H PRN; Protocol PRN Reason: Pain, Severe (Pain Scale 7-10) Last Admin: 05/05/24 09:53 Dose: 0.5 mg Documented By: TRISTAN Vancomycin HCl 500 mg/ Sodium (Chloride) 110 mls @ 110 mls/hr IV Q24H [facility] Insulin Glargine (Insulin Glargine,Hum.Rec.Anlog 100 Unit/Ml 10 Ml Vial) 18 unit SUBCUT BEDTIME [facility] Last Admin: 05/04/24 22:09 Dose: 18 unit Documented By: SUORAV Insulin Human Lispro (Insulin Lispro 100 Unit/Ml 3 Ml Vial) 0 unit SUBCUT QIDACHS [facility]; Protocol Last Admin: 05/05/24 08:46 Dose: Not Given Documented By: TRISTAN Non-Admin Reason: No Insulin Coverage Levetiracetam (Levetiracetam 500 Mg Tablet) 500 mg PO BID [facility] Last Admin: 05/05/24 09:53 Dose: 500 mg Documented By: TRISTAN Magnesium Hydroxide (Milk Of Magnesia 30 Ml Oral.Susp) 30 ml PO DAILY PRN PRN Reason: Constipation Melatonin (Melatonin 3 Mg Tablet) 6 mg PO BEDTIME PRN PRN Reason: Insomnia Last Admin: 05/04/24 22:08 Dose: 6 mg Documented By: SOURAV Non-Formulary Medication (Sucroferric Oxyhydroxide [Velphoro]) 500 mg PO TID [facility] Omeprazole (Omeprazole 20 Mg Capsule.Dr) 20 mg PO DAILY@0630 [facility] Last Admin: 05/05/24 05:36 Dose: Not Given Documented By: SAMIRA Non-Admin Reason: Patient Refused Ondansetron HCl (Ondansetron Hcl 4 Mg/2 Ml Vial) 4 mg IVPUSH Q8H PRN PRN Reason: Nausea and Vomiting Last Admin: 05/04/24 14:05 Dose: 4 mg Documented By: GARCIA Pharmacy Consult (Consult Rx Vancomycin Dosing) 1 each MISCELLANE DAILY PRN PRN Reason: Consult order Senna (Sennosides 8.6 Mg Tablet) 8.6 mg PO DAILY PRN PRN Reason: Constipation Sodium Chloride (0.9 % Sodium Chloride Flush 3 Ml Syringe) 3 ml IVFLUSH QSHIFT [facility] Last Admin: 05/05/24 09:54 Dose: 3 ml Documented By: TRISTAN Labs 05/05/24 06:54 05/05/24 06:54 Labs: Laboratory Results - last 24 hr 05/04/24 05/04/24 05/04/24 11:33 15:33 20:52 MCV MCH MCHC RDW Plt Count MPV Immature Gran % (Auto) Neut % (Auto) Lymph % (Auto) [place] % (Auto) Eos % (Auto) Baso % (Auto) Lymph # (Auto) [place] # (Auto) Eos # (Auto) Baso # (Auto) Abs Immat Gran (auto) Absolute Neuts (auto) Absolute Nucleated RBC Nucleated RBC % (auto) VBG pH VBG pCO2 VBG pO2 VBG HCO3 VBG O2 Saturation VBG Base Excess Anion Gap Estim Creat Clear Calc Estimated GFR POC Glucose 115 144 H 202 H Random Glucose Calcium Phosphorus Magnesium Albumin 05/05/24 05/05/24 05/05/24 06:54 07:21 08:49 MCV 78.6 L MCH 24.1 L MCHC 30.7 L RDW 18.6 H Plt Count 367 MPV 12.5 H Immature Gran % (Auto) 1.3 H Neut % (Auto) 81.3 H Lymph % (Auto) 10.1 L [place] % (Auto) 6.6 Eos % (Auto) 0.6 Baso % (Auto) 0.1 Lymph # (Auto) 1.5 [place] # (Auto) 1.0 Eos # (Auto) 0.1 Baso # (Auto) 0.0 Abs Immat Gran (auto) 0.19 H Absolute Neuts (auto) 11.9 H Absolute Nucleated RBC 0.080 H Nucleated RBC % (auto) 0.5 H VBG pH 7.46 H VBG pCO2 41 VBG pO2 130 VBG HCO3 30 H VBG O2 Saturation 100.0 VBG Base Excess 5.8 Anion Gap 23 H Estim Creat Clear Calc 8.1 Estimated GFR 6 POC Glucose 86 Random Glucose 91 Calcium 8.4 Phosphorus 8.6 H Magnesium 1.9 Albumin 3.5 Microbiology Microbiology Results: Microbiology 05/03/24 Unknown Gram Stain - Final Pericardial Fluid Routine Culture - Final No growth after 2 days Anaerobic Culture - Preliminary No growth to date. Assessment and Plan (1) Pericardial effusion: Status: Acute (2) ESRD needing dialysis: Status: Acute (3) Acute pericardial effusion: Status: Inactive (4) Rash: Status: Acute (5) Hx of right BKA: Status: Acute Plan 69M PMH significant for?ESRD on HD M/W/F, insulin-dependent type 2 diabetes, peripheral vascular disease, s/p right BKA 04/[address] Cannon, seizure disorder, HFrEF, HTN, HLD, chronically on 2L home O2, GERD, and ROBERT on CPAP who presented to the ED with?rash x2 days. found to have mod severe pericardial effusion, course complicated by hemodynamic instability from tamponade, transferred to ICU, improved after pericardiocentesis, now downgraded to medical floor. Generalized Rash noted 7-10 days prior to admission No clinical change in last 24 hours ESR 92, CRP 19.06, trending down from 32.5 on April 05, 0.1 eosinophils ddx: Hydralazine induced vasculitis , systemic vasculitis , bacteremia /rule out septic emboli (less likely cultures negative), cholesterol embolization syndrome had angiogram 2 months ago (negative eos), small-vessel vasculitis, Anca associated, cryoglobulinemia ANCA vasculitides, SAIDA, cold agglutinin, total complement, cryoglobulin, hepatitis serology, antihistone antibody, HIV, ds DNA, [employer] antibody sent Discontinued hydralazine, continue IV vancomycin and cefazolin, started 05/01/2024 One dose of empiric IV steroids given, since low suspicion for active infection, no fevers, no leukocytosis Follow blood cultures Echo showed no vegetations Case discussed with ID she recommend to continue current antibiotics/added respiratory viral pathogen Moderate to severe Pericardial effusion complicated by tamponade Echocardiogram showed severe biventricular dysfunction and [id number] pericardial effusion s/p pericardial window - send fluid, follow up repeat echo Chronic hypoxic respiratory failure on 2 L of home oxygen/obstructive sleep apnea on CPAP No acute hypoxia. ESRD on HD M/W/ Continue ShayanphJessica flores, nephro consulted, Dr. Rao following Status post right BKA on 04/11 obtain vascular surgery consultation for dressing change, patient complain of pain, added Dilaudid for severe pain and oxycodone for moderate pain Chronic anemia hematocrit stable Insulin-dependent type 2 diabetes continue Sliding-scale insulin, resume Lantus 18 units at bedtime (home dose 22 units), Diabetic diet Seizure disorder Continue Keppra HLD/PAD aspirin HTN Continue carvedilol, losartan hydralazine discontinued for possible hydralazine induced vasculitis Peripheral neuropathy Continue pregabalin full Code DVT Prophylaxis: hep sq reason for continued hospitalization:working up effuison, vasculitis Quality Stroke Does the patient have a stroke diagnosis?: No VTE Prior VTE?: No VTE Risk Level:: Medical - moderate - high VTE Device Contraindication: N/A - Device Ordered VTE Drug Contraindication: Treatment Not Indicated
[2024-05-05 11:30] LABS: Glucose, Whole Blood 135 mg/dL (60-115)
[2024-05-05 12:00] VITALS: BP 158/72; PULSE 75; RESP 13; TEMP 35.8; O2SAT 97
[2024-05-05 12:28] LABS: Adenovirus PCR Not Detected (Not Detect.); Bordetella parapertussis PCR Not Detected (Not Detect.); Bordetella pertussis PCR Not Detected (Not Detect.); Chlamydia pneumoniae PCR Not Detected (Not Detect.); Coronavirus 229E PCR Not Detected (Not Detect.); Coronavirus HKU1 PCR Not Detected (Not Detect.); Coronavirus NL63 PCR Not Detected (Not Detect.); Coronavirus OC43 PCR Not Detected (Not Detect.); Human metapneumovirus PCR Not Detected (Not Detect.); Influenza A PCR Not Detected (Not Detect.); Influenza B PCR Not Detected (Not Detect.); Mycoplasma pneumoniae PCR Not Detected (Not Detect.); Parainfluenza 1 PCR Not Detected (Not Detect.); Parainfluenza 2 PCR Not Detected (Not Detect.); Parainfluenza 3 PCR Not Detected (Not Detect.); Parainfluenza 4 PCR Not Detected (Not Detect.); RSV PCR Not Detected (Not Detect.); Rhino/Enterovirus PCR Not Detected (Not Detect.)
--- NOTE | 2024-05-05 12:43 | PM.PNCARD ---
Subjective Subjective Date of Service: 05/05/24 Interval history: Seen examined at bedside. Confused. Physical Exam Vital Signs: Last Vital Signs Temp 96.4 F L 05/05/24 12:00 Pulse 75 05/05/24 12:00 Resp 13 05/05/24 12:00 BP 158/72 H 05/05/24 12:00 Pulse Ox 97 05/05/24 12:00 O2 Del Method Nasal Cannula 05/05/24 12:00 O2 Flow Rate 2 05/05/24 12:00 Oxygen Flow Rate 2 05/01/24 16:16 BMI result Body Mass Index 29.1 GENERAL APPEARANCE: Confused. SKIN: rash on legs. HEART: no murmurs, regular rate and rhythm. LUNGS: clear to auscultation bilaterally. ABDOMEN: soft, nontender. EXTREMITIES: Right BKA. PERIPHERAL PULSES: equal. NEUROLOGIC: No gross deficits, AAO X 3 Objective Labs and Meds 05/05/24 06:54 05/05/24 06:54 Lab results: Laboratory Results - last 24 hr 05/04/24 05/04/24 05/05/24 15:33 20:52 06:54 WBC 14.6 H RBC 3.36 L Hgb 8.1 L Hct 26.4 L MCV 78.6 L MCH 24.1 L MCHC 30.7 L RDW 18.6 H Plt Count 367 MPV 12.5 H Immature Gran % (Auto) 1.3 H Neut % (Auto) 81.3 H Lymph % (Auto) 10.1 L Sharkey % (Auto) 6.6 Eos % (Auto) 0.6 Baso % (Auto) 0.1 Lymph # (Auto) 1.5 Sharkey # (Auto) 1.0 Eos # (Auto) 0.1 Baso # (Auto) 0.0 Abs Immat Gran (auto) 0.19 H Absolute Neuts (auto) 11.9 H Absolute Nucleated RBC 0.080 H Nucleated RBC % (auto) 0.5 H VBG pH VBG pCO2 VBG pO2 VBG HCO3 VBG O2 Saturation VBG Base Excess Sodium 141 Potassium 4.5 Chloride 101 Carbon Dioxide 22 Anion Gap 23 H BUN 77 H Creatinine 8.42 H* Estim Creat Clear Calc 8.1 Estimated GFR 6 POC Glucose 144 H 202 H Random Glucose 91 Calcium 8.4 Phosphorus 8.6 H Magnesium 1.9 Albumin 3.5 05/05/24 05/05/24 05/05/24 07:21 08:49 11:23 WBC RBC Hgb Hct MCV MCH MCHC RDW Plt Count MPV Immature Gran % (Auto) Neut % (Auto) Lymph % (Auto) Sharkey % (Auto) Eos % (Auto) Baso % (Auto) Lymph # (Auto) Sharkey # (Auto) Eos # (Auto) Baso # (Auto) Abs Immat Gran (auto) Absolute Neuts (auto) Absolute Nucleated RBC Nucleated RBC % (auto) VBG pH 7.46 H VBG pCO2 41 VBG pO2 130 VBG HCO3 30 H VBG O2 Saturation 100.0 VBG Base Excess 5.8 Sodium Potassium Chloride Carbon Dioxide Anion Gap BUN Creatinine Estim Creat Clear Calc Estimated GFR POC Glucose 86 135 H Random Glucose Calcium Phosphorus Magnesium Albumin Progress Note: A&P Assessment and plan (1) Pericardial effusion: Status: Acute (2) ESRD needing dialysis: Status: Acute Plan 69-year-old gentleman with complex medical issues who is on hemodialysis previously had MRSA and Enterococcus bacteremia. Echocardiography has shown [id number] pericardial effusion with some features consistent with tamponade. He is status post pericardial window/drain at this point. He was hemodynamically unstable before that but improved after window was placed. He had recent BKA for peripheral vascular disease. He has rash on his legs with concern for vasculitis and further workup is being done. He is on antibiotics. Continues to be confused and ill-appearing. ECHO has also shown severe biventricular dysfunction which is new for him. Not in any shape to do further workup. Blood pressure is improving and is home dose of losartan should be restarted. Also restart carvedilol. Thank you for allowing me to participate in the care of your patient. Please feel free to contact me if you have any questions. Time Spent With Patient Time: Total time managing care of this patient today ____ minutes. Progress Note: Quality Stroke Does the patient have a stroke diagnosis?: No Procedures Date of Service Date of Service: 05/05/24
[2024-05-05 12:45] LABS: BF Shift QC OK YES; Lymphs Pericardial Fl 1 %; Man Diluent Bkgrd OK YES; Monocytes Pericard Fl 4 %; Neutrophils Pericardial Fluid 95 %; RBC Pericardial Fluid 412500 MM*3; WBC Pericardial Fluid 9750 MM*3
[2024-05-05 13:17] LABS: SARS-CoV-2 PCR Not Detected (Not Detect.)
[2024-05-05 15:42] VITALS: BP 146/68; PULSE 74; RESP 16; TEMP 36.4; O2SAT 95
[2024-05-05 16:23] LABS: Glucose, Whole Blood 230 mg/dL (60-115)
[2024-05-05] MEDS: Insulin Lispro 100 UNIT/ML 3 ML VIAL SUBCUT ×2 (17:04→21:54)
[2024-05-05 19:33] VITALS: BP 160/67; PULSE 74; RESP 17; TEMP 37.2; O2SAT 97
[2024-05-05] MEDS: Insulin Glargine,Hum.rec.anlog 100 UNIT/ML 10 ML VIAL 18 UNIT SUBCUT (20:55)
[2024-05-05] MEDS: cefTRIAXone sodium 1 GM VIAL IVPUSH (21:54)
[2024-05-05 22:00] LABS: Glucose, Whole Blood 179 mg/dL (60-115)
[2024-05-06] VITALS (7 sets, daily range): BP systolic 110–192; BP diastolic 60–96; PULSE 71–88; RESP 17–19; TEMP 36.1–37.1; O2SAT 94–99
[2024-05-06] MEDS: HYDROmorphone HCl 0.5 MG/0.5 ML SYRINGE IVPUSH ×3 (04:10→13:00)
[2024-05-06] MEDS: Heparin Sodium,Porcine 5,000 UNIT/ML VIAL 5000 UNIT SUBCUT ×3 (04:11→19:46)
[2024-05-06] MEDS: 0.9 % Sodium Chloride Flush 3 ML SYRINGE IVFLUSH ×4 (04:19→19:38)
[2024-05-06] MEDS: Omeprazole 20 MG CAPSULE.DR PO (06:57)
--- NOTE | 2024-05-06 07:00 | CA_ITS ---
Transthoracic Echocardiogram Patient (Last, First, Middle): Beau Marie A Gender: Male Date of : 1955 Age: 69 Procedure Date: 05/06/2024 Procedure Type: Transthoracic Echocardiogram Location: [facility] – [place], [place] Height: 165.1 cm Weight: 79.38 kg BSA: 1.87 m2 Heart Rate: 79 bpm BP: 192 / 88 mmHg Student Services Counselor: ALVARO Referring MD: Jules Reddy MD Medical Driver: Ko England MD Symptoms: follow up post tamponade/limited ordered Study Quality: Technically Difficult ECG Rhythm: Sinus Conclusions: - 1. Technically extremely limited study 2. Small pericardial effusion present mostly circumferential, without clear evidence of tamponade Findings Left Ventricle The left ventricle was not well visualized. Pericardium/Pleural There is a small pericardial effusion. There are no definitive echocardiographic findings of tamponade physiology. Measurements Mitral Valve MV Pk E: 1.19 MV PK A: 0.75 MV Decel Time: 205.00 E/A: 1.60 E'Lateral: 6.31 E'Medial: 5.55 E/E' Med: 21.40 E/E' Lat: 18.90 PHT: 60.00 MVA PHT: 3.67 Decel Shannon: 5.80 Diastolic Function MV Pk E: 1.19 MV Pk A: 0.75 E/A: 1.60 E'Medial: 5.55 E/E' Med: 21.40 E' Laterial: 6.31 E/E' Lat: 18.90 Tricuspid Valve RA Press: 8.00 Updated in Other Vendor System with Status of Final Ko England MD electronically signed on 05/06/2024 11:45:44 AM with status of Final
[2024-05-06 07:23] LABS: Hematocrit 27.6 % (42.0-52.0); Hemoglobin 8.7 g/dl (14.0-18.0); Mean Corpuscular HGB Conc 31.5 g/dl (31.0-36.0); Mean Corpuscular Hemoglobin 24.3 pg (27.0-33.0); Mean Corpuscular Volume 77.1 fL (80.0-98.0); Mean Platelet Volume 11.9 fL (9.4-12.4); NRBC Pct Auto 0.2 /100WBC (0.0-0.2); Platelet Count 380 X10*3/uL (160-400); Red Blood Count 3.58 X10*6/uL (4.60-5.80); Red Cell Distribution Width 18.8 % (11.0-16.0); White Blood Count 16.9 X10*3/uL (4.8-10.8)
[2024-05-06] MEDS: Fluticasone/Umeclidinium/Vilanterol 100/62.5/25 BLST.W.DEV 1 PUFF INHALE (07:26)
[2024-05-06 07:42] LABS: Glucose, Whole Blood 105 mg/dL (60-115)
[2024-05-06 07:44] LABS: Anion Gap 27 (12-20); Blood Urea Nitrogen 100 mg/dL (9-16); Calcium 8.1 mg/dL (8.4-10.2); Carbon Dioxide 20 mmol/L (22-29); Chloride 100 mmol/L (96-108); Creatinine Clr Calc Pharmacy 6.9; Estimated Glomerular Filt Rate 5; Glucose Random 94 mg/dL (60-115); Potassium 4.9 mmol/L (3.3-5.1); Sodium 142 mmol/L (135-145)
[2024-05-06] MEDS: Sevelamer Carbonate Tablet 800 MG TABLET 1600 MG PO ×3 (08:35→18:00)
[2024-05-06] MEDS: levETIRAcetam 500 MG TABLET PO ×2 (08:35→19:36)
--- NOTE | 2024-05-06 08:35 | PM.CNGS ---
History of Present Illness Consult details Consult date: 05/06/24 Narrative: We were consulted on Beau, a pleasant 69yo male patient, who presented to the ER on 05/01 for concerns of worsening rash, now all over his body, with shortness of breath. He was found to have a new pleural effusion. He was admitted and underwent a pericardial window on Monday, which resulted in 500mL of bloody fluid. We were unable to see him Monday due to being in the OR. He was recently seen in our office on 04/30 for a 2w f/u to right BKA. We noted that the flap was boggy with violaceous discoloration and to have him follow up this week. He continues to endorse some shortness of breath this morning and increased pain and feelings of freezing/coldness in the BKA site. He states the pain is a 10 this morning. He is eating, but not as much. Review of Systems Constitutional: Constitutional: Reports as per HPI and Denies weakness ENT: Reports Normal hearing present and Denies dizziness Cardiovascular: Cardiovascular: Reports as per HPI, Denies chest pain, Denies chest pain at rest, Denies chest pain with activity, Denies dyspnea and Denies dyspnea on exertion Respiratory: Respiratory: Reports as per HPI, Denies cough, Denies dyspnea and Denies dyspnea on exertion Gastrointestinal: Gastrointestinal: Reports as per HPI, Denies abdominal pain, Denies nausea and Denies vomiting Musculoskeletal: Musculoskeletal: Denies numbness Integumentary/Breasts: Skin/Breast: Reports as per HPI, Denies erythema and Denies wounds Neurologic: Reports Normal hearing present, Denies dizziness, Denies numbness, Denies Sensory deficit (Neuro) and Denies weakness Psychiatric: Psychiatric: Reports no additional psychiatric complaints Endocrine: Endocrine: Reports no additional endocrine complaints [facility] Past Medical History Medical History (Updated 05/06/24 @ 12:23 by Ko England MD) Acute pericardial effusion ESRD needing dialysis Right sided weakness Dehiscence of wound Peripheral arterial disease Cellulitis of right foot Hypertension Dry gangrene HFrEF (heart failure with reduced ejection fraction) ESRD (end stage renal disease) Chronic combined systolic and diastolic CHF (congestive heart failure) Chronic pericardial effusion Arthritis Asthma Restless leg syndrome Acute on chronic systolic and diastolic heart failure, NYHA class 3 Anemia ESRD (end stage renal disease) Occlusive thrombus Pulmonary edema ROBERT (obstructive sleep apnea) Type 2 diabetes mellitus Hyperlipidemia Hypertension A-V fistula ESRD on dialysis Falling Family History Family History Father No problems noted. Mother No problems noted. Family history: reviewed and not pertinent Surgical History Surgical History (Updated 05/04/24 @ 07:10 by Rohith Valdes MD) Postop check Hx of right BKA Status post transmetatarsal amputation of right foot History of transmetatarsal amputation of foot History of surgery H/O colonoscopy Recurrent pleural effusion Pleural effusion on right (07/13/23) Social History Social History Household Members: Children Household Members Other:: son Housing: Apartment Are you a primary day care teacher to a significant other at home: No Do you presently have visiting nurse or other home services: No Alcohol intake: never Comment: counts correct Patient Tobacco Use Status: Former Tobacco user Tobacco use type: Cigarette Second Hand Smoke Exposure: No Advance Directives Date on File: 04/13/23 service: No Meds Allergies Allergy/AdvReac Type Severity Reaction Status Date / Time Iodinated Contrast Media Allergy Severe Facial Verified 05/01/24 16:21 [Contrast Dye] Swelling Active Medications: Current Medications Acetaminophen (Acetaminophen 325 Mg Tablet) 650 mg PO Q6H PRN PRN Reason: Pain, Mild 1-3,fever,headache Albuterol Sulfate (Albuterol Sulfate 90 Mcg 8 Gm Inhaler) 2 puff INHALE RQ4H PRN PRN Reason: Shortness Of Breath Albuterol/Ipratropium (Albuterol/Iprat 2.5/0.5mg 3 Ml Ampul.Neb) 3 ml INHALE RQID PRN PRN Reason: Wheezing Allopurinol (Allopurinol 100 Mg Tablet) 100 mg PO MOWEFR@1600 [facility] Last Admin: 05/03/24 18:42 Dose: Not Given Atorvastatin Calcium (Atorvastatin Calcium 40 Mg Tablet) 40 mg PO MOWEFR@1600 [facility] Last Admin: 05/03/24 18:42 Dose: Not Given Atorvastatin Calcium (Atorvastatin Calcium 40 Mg Tablet) 40 mg PO SUTUTHSA@0900 [facility] Last Admin: 05/05/24 09:53 Dose: 40 mg Bisacodyl (Bisacodyl 10 Mg Supp.Rect) 10 mg WI DAILY PRN PRN Reason: Constipation Calcium Carbonate (Calcium Carbonate 750 Mg Tab.Chew) 750 mg PO Q4H PRN PRN Reason: Heartburn Ceftriaxone Sodium (Ceftriaxone Sodium 1 Gm Vial) 1 gm IVPUSH Q24H [facility] Last Admin: 05/05/24 21:54 Dose: 1 gm Dextrose (Dextrose 50 % 25 Gm/50 Ml Syringe) 25 gm IVPUSH Q15M PRN; Protocol PRN Reason: per Hypoglycemia Standing Ord. Last Admin: 05/02/24 03:57 Dose: 25 gm Fluticasone/Umeclidinium/Vilanterol (Fluticasone/Umeclidinium/Vilanterol 100/62.5/25 Blst.W.Dev) 1 puff INHALE RDAILY [facility] Last Admin: 05/06/24 07:26 Dose: 1 puff Glucose (Glucose Gel 15 Gm Gel..Gram.) 15 gm PO Q15M PRN; Protocol PRN Reason: per Hypoglycemia Standing Ord. Heparin Sodium (Porcine) (Heparin Sodium,Porcine 5,000 Unit/Ml Vial) 5,000 unit SUBCUT Q8H [facility] Last Admin: 05/06/24 04:11 Dose: 5,000 unit Hydromorphone HCl (Hydromorphone Hcl 0.5 Mg/0.5 Ml Syringe) 0.5 mg IVPUSH Q4H PRN; Protocol PRN Reason: Pain, Severe (Pain Scale 7-10) Last Admin: 05/06/24 04:10 Dose: 0.5 mg Vancomycin HCl 500 mg/ Sodium (Chloride) 110 mls @ 110 mls/hr IV Q24H [facility] Insulin Glargine (Insulin Glargine,Hum.Rec.Anlog 100 Unit/Ml 10 Ml Vial) 18 unit SUBCUT BEDTIME [facility] Last Admin: 05/05/24 20:55 Dose: 18 unit Insulin Human Lispro (Insulin Lispro 100 Unit/Ml 3 Ml Vial) 0 unit SUBCUT QIDACHS [facility]; Protocol Last Admin: 05/06/24 08:29 Dose: Not Given Levetiracetam (Levetiracetam 500 Mg Tablet) 500 mg PO BID [facility] Last Admin: 05/05/24 20:55 Dose: 500 mg Magnesium Hydroxide (Milk Of Magnesia 30 Ml Oral.Susp) 30 ml PO DAILY PRN PRN Reason: Constipation Melatonin (Melatonin 3 Mg Tablet) 6 mg PO BEDTIME PRN PRN Reason: Insomnia Last Admin: 05/04/24 22:08 Dose: 6 mg Omeprazole (Omeprazole 20 Mg Capsule.Dr) 20 mg PO DAILY@0630 [facility] Last Admin: 05/06/24 06:57 Dose: 20 mg Ondansetron HCl (Ondansetron Hcl 4 Mg/2 Ml Vial) 4 mg IVPUSH Q8H PRN PRN Reason: Nausea and Vomiting Last Admin: 05/04/24 14:05 Dose: 4 mg Pharmacy Consult (Consult Rx Vancomycin Dosing) 1 each MISCELLANE DAILY PRN PRN Reason: Consult order Senna (Sennosides 8.6 Mg Tablet) 8.6 mg PO DAILY PRN PRN Reason: Constipation Sevelamer Carbonate (Sevelamer Carbonate Tablet 800 Mg Tablet) 1,600 mg PO TIDWM [facility] Sodium Chloride (0.9 % Sodium Chloride Flush 3 Ml Syringe) 3 ml IVFLUSH QSHIFT [facility] Last Admin: 05/06/24 04:19 Dose: 3 ml Home Medications ?Medication ?Instructions ?Recorded ?Confirmed ?Last Taken ?Type albuterol sulfate 90 mcg/actuation 2 puff inhalation Q4H PRN 04/19/22 05/01/24 03/05/24 History aerosol inhaler Shortness Of Breath allopurinol 100 mg tablet 100 mg PO MOWEFR@1600 04/19/22 05/01/24 03/18/24 History atorvastatin 40 mg tablet 40 mg PO SUTUTHSA@0900 04/19/22 05/01/24 03/19/24 History doxazosin 4 mg tablet 4 mg PO BEDTIME 04/19/22 05/01/24 03/18/24 History furosemide 80 mg tablet 80 mg PO SUTUTHSA@0900 04/19/22 05/01/24 03/19/24 History ipratropium 0.5 mg-albuterol 3 mg 3 ml inhalation QID PRN Wheezing 04/19/22 05/01/24 Unknown History (2.5 mg base)/3 mL nebulization soln omeprazole 20 mg capsule,delayed 20 mg PO DAILY@0630 04/19/22 05/01/24 03/19/24 History release insulin lispro 100 unit/mL 1 sliding scale dose subcut TIDAC 04/10/23 05/01/24 03/18/24 History subcutaneous pen aspirin 81 mg tablet,delayed 81 mg PO SUTUTHSA@06/20/23 05/01/24 03/19/24 History release pregabalin 75 mg capsule 75 mg PO SUTUTHSA@,15,21 06/20/23 05/01/24 03/19/24 History hydralazine 25 mg tablet 25 mg PO SUTUTHSA@,15,01/24/24 05/01/24 03/19/24 History sucroferric oxyhydroxide 500 mg 500 mg PO TID 01/24/24 05/01/24 03/19/24 History chewable tablet (Velphoro) acetaminophen 325 mg tablet 650 mg PO Q4H PRN PAIN/FEVER 04/05/24 05/01/24 Unknown History aspirin 81 mg tablet,delayed 81 mg PO MOWEFR@159904/05/24 05/01/24 Unknown History release atorvastatin 40 mg tablet 40 mg PO MOWEFR@159904/05/24 05/01/24 Unknown History bisacodyl 10 mg rectal suppository 10 mg WI DAILY PRN Constipation 04/05/24 05/01/24 Unknown History (Dulcolax (bisacodyl)) carvedilol 6.25 mg tablet 6.25 mg PO BID 04/05/24 05/01/24 Unknown History fluticasone fur. 100 mcg-umeclid 1 inh inhalation DAILY 04/05/24 05/01/24 Unknown History 62.5 mcg-vilant 25 mcg inhalat.powder (Trelegy Ellipta) furosemide 80 mg tablet 80 mg PO MOWEFR@1600 04/05/24 05/01/24 Unknown History hydralazine 25 mg tablet 25 mg PO MOWEFR@1600 04/05/24 05/01/24 Unknown History losartan 25 mg tablet 25 mg PO MOWEFR@1600 04/05/24 05/01/24 Unknown History losartan 25 mg tablet 25 mg PO SUTUTHSA@0900 04/05/24 05/01/24 Unknown History oxycodone 5 mg tablet 5 mg PO Q6H PRN pain 04/05/24 05/01/24 Unknown History pregabalin 75 mg capsule 75 mg PO MOWEFR@159904/05/24 05/01/24 Unknown History sennosides 8.6 mg tablet (senna) 8.6 mg PO DAILY PRN Constipation 04/05/24 05/01/24 Unknown History insulin glargine 100 unit/mL (3 22 unit subcut BEDTIME 05/01/24 05/01/24 Unknown History mL) subcutaneous pen (Lantus Solostar U-100 Insulin) Physical Exam Vital Signs: Vital Signs: Last Vital Signs Temp 97.0 F 05/06/24 08:00 Pulse 71 05/06/24 08:00 Resp 19 05/06/24 08:00 BP 128/96 H 05/06/24 08:00 Pulse Ox 99 05/06/24 08:00 O2 Del Method Room Air 05/06/24 08:00 O2 Flow Rate 2 05/06/24 04:00 Oxygen Flow Rate 2 05/01/24 16:16 BMI result Body Mass Index 29.1 Const: General: comfortable and no acute distress Orientation/consciousness: patient oriented x3 HEENT: Ears: hearing grossly normal bilaterally Resp: Effort & Inspection: normal respiratory effort and able to speak in complete sentences Auscultation: clear to auscultation bilaterally Cardio: Rate: regular rate Rhythm: regular rhythm Heart sounds: S1 normal heart sound present and S2 normal heart sound present Bruits: no abdominal aortic bruits, no carotid bruits, no femoral bruits and no renal bruits GI: Palpation (GI): No Abdominal aortic bruit present Neuro: General: patient oriented x3 Cranial nerves: Yes Normal hearing present Sensory Exam: No Sensory deficit (Neuro) Extrem: Other: Right BKA site: Dark violaceous discoloration noted all throughout the flap and above the incision site. Bogginess felt all throughout the flap, just below the incision site. There is serosanginous drainage noted on the lateral aspect of the incision site. Pain to palpation of the entire site. Right third finger: violaceous coloring with scabbed over prick sites noted to the left of the nail bed. Painful to palpation. Left great toe: discoloration noted to both sides of the nailbed. Not painful to palpation. Results Labs 05/06/24 06:55 05/06/24 06:55 Labs: Abnormal lab results 05/05/24 05/05/24 05/05/24 Range/Units 08:49 11:23 16:20 WBC (4.8-10.8) X10*3/uL RBC (4.60-5.80) X10*6/uL Hgb (14.0-18.0) g/dl Hct (42.0-52.0) % MCV (80.0-98.0) fL MCH (27.0-33.0) pg RDW (11.0-16.0) % Absolute Nucleated RBC (0.0-0.012) X10*3/uL VBG pH 7.46 H (7.32-7.43) VBG HCO3 30 H (22-26) mmol/L Carbon Dioxide (22-29) mmol/L Anion Gap (12-20) BUN (9-16) mg/dL Creatinine (0.5-1.4) mg/dL POC Glucose 135 H 230 H (60-115) mg/dL Calcium (8.4-10.2) mg/dL 05/05/24 05/06/24 Range/Units 20:39 06:55 WBC 16.9 H (4.8-10.8) X10*3/uL RBC 3.58 L (4.60-5.80) X10*6/uL Hgb 8.7 L (14.0-18.0) g/dl Hct 27.6 L (42.0-52.0) % MCV 77.1 L (80.0-98.0) fL MCH 24.3 L (27.0-33.0) pg RDW 18.8 H (11.0-16.0) % Absolute Nucleated RBC 0.040 H (0.0-0.012) X10*3/uL VBG pH (7.32-7.43) VBG HCO3 (22-26) mmol/L Carbon Dioxide 20 L (22-29) mmol/L Anion Gap 27 H (12-20) BUN 100 H (9-16) mg/dL Creatinine 9.94 H* (0.5-1.4) mg/dL POC Glucose 179 H (60-115) mg/dL Calcium 8.1 L (8.4-10.2) mg/dL Short CBC 05/06/24 Range/Units 06:55 WBC 16.9 H (4.8-10.8) X10*3/uL Hgb 8.7 L (14.0-18.0) g/dl Hct 27.6 L (42.0-52.0) % Plt Count 380 (160-400) X10*3/uL [facility] 05/06/24 06:55 Sodium 142 Potassium 4.9 Chloride 100 Carbon Dioxide 20 L BUN 100 H Creatinine 9.94 H* Calcium 8.1 L All other labs normal. Assessment and Plan (1) Hx of right BKA: Status: Acute Plan We were consulted on Beau for concerns of worsening BKA site infection/healing. He presented to the ER on 05/01 with concerns of a rash all over his body as well as shortness of breath. He was taken to the OR on 05/03 for a pericardial window due to new pleural effusion that was found. He continues with slight shortness of breath/tachypnea. He has increased pain all over the BKA site, a 10/10 most of the time. There is a moderate amt of serosanginous drainage noted from the incision site on the lateral aspect of the site. There is bogginess felt all throughout the flap and above the site. We dressed the wound with Xeroform, abd pain, and Kerlix wrap. The pt continues to endorse that he wants the dressing off, it is causing him more pain; I discussed with him that he needs to keep it on. He continues on IV Abx. The labwork for vasculitis has not returned yet. There is no acute vascular surgical intervention at this point. We will continue to monitor. If there are any questions or concerns, please do not hesitate to reach out to us. Procedures Date of Service Date of Service: 05/06/24
--- NOTE | 2024-05-06 09:42 | HO.PM.IMPN ---
Subjective Subjective Date of Service: 05/06/24 Interval History: right bka pain ENT Ears, Nose, Mouth, and Throat: Reports Normal hearing present Neurologic Neurologic: Reports Normal hearing present and Denies Sensory deficit (Neuro) Physical Exam Vital Signs: Vital Signs: Last Vital Signs Temp 97.0 F 05/06/24 08:00 Pulse 71 05/06/24 08:00 Resp 19 05/06/24 08:00 BP 128/96 H 05/06/24 08:00 Pulse Ox 99 05/06/24 08:00 O2 Del Method Room Air 05/06/24 08:00 O2 Flow Rate 2 05/06/24 04:00 Oxygen Flow Rate 2 05/01/24 16:16 BMI result Body Mass Index 29.1 Const: General: comfortable and no acute distress Orientation/consciousness: patient oriented x3 HEENT: Ears: hearing grossly normal bilaterally Resp: Effort & Inspection: normal respiratory effort and able to speak in complete sentences Auscultation: clear to auscultation bilaterally Cardio: Rate: regular rate Rhythm: regular rhythm Heart sounds: S1 normal heart sound present and S2 normal heart sound present Bruits: no abdominal aortic bruits, no carotid bruits, no femoral bruits and no renal bruits GI: Palpation (GI): No Abdominal aortic bruit present Neuro: General: patient oriented x3 Cranial nerves: Yes Normal hearing present Sensory Exam: No Sensory deficit (Neuro) Extrem: Other: Right BKA site: Dark violaceous discoloration noted all throughout the flap and above the incision site. Bogginess felt all throughout the flap, just below the incision site. There is serosanginous drainage noted on the lateral aspect of the incision site. Pain to palpation of the entire site. Right third finger: violaceous coloring with scabbed over prick sites noted to the left of the nail bed. Painful to palpation. Left great toe: discoloration noted to both sides of the nailbed. Not painful to palpation. Objective Data Active Medications Acetaminophen (Acetaminophen 325 Mg Tablet) 650 mg PO Q6H PRN PRN Reason: Pain, Mild 1-3,fever,headache Albuterol Sulfate (Albuterol Sulfate 90 Mcg 8 Gm Inhaler) 2 puff INHALE RQ4H PRN PRN Reason: Shortness Of Breath Albuterol/Ipratropium (Albuterol/Iprat 2.5/0.5mg 3 Ml Ampul.Neb) 3 ml INHALE RQID PRN PRN Reason: Wheezing Allopurinol (Allopurinol 100 Mg Tablet) 100 mg PO MOWEFR@1600 [facility] Last Admin: 05/03/24 18:42 Dose: Not Given Documented By: BRIT Non-Admin Reason: Off Unit: Surgery Atorvastatin Calcium (Atorvastatin Calcium 40 Mg Tablet) 40 mg PO MOWEFR@1600 [facility] Last Admin: 05/03/24 18:42 Dose: Not Given Documented By: BRIT Non-Admin Reason: Off Unit: Surgery Atorvastatin Calcium (Atorvastatin Calcium 40 Mg Tablet) 40 mg PO SUTUTHSA@0900 [facility] Last Admin: 05/05/24 09:53 Dose: 40 mg Documented By: TRISTAN Bisacodyl (Bisacodyl 10 Mg Supp.Rect) 10 mg PA DAILY PRN PRN Reason: Constipation Calcium Carbonate (Calcium Carbonate 750 Mg Tab.Chew) 750 mg PO Q4H PRN PRN Reason: Heartburn Ceftriaxone Sodium (Ceftriaxone Sodium 1 Gm Vial) 1 gm IVPUSH Q24H [facility] Last Admin: 05/05/24 21:54 Dose: 1 gm Documented By: TRISTAN Dextrose (Dextrose 50 % 25 Gm/50 Ml Syringe) 25 gm IVPUSH Q15M PRN; Protocol PRN Reason: per Hypoglycemia Standing Ord. Last Admin: 05/02/24 03:57 Dose: 25 gm Documented By: JOSE JUAN Fluticasone/Umeclidinium/Vilanterol (Fluticasone/Umeclidinium/Vilanterol 100/62.5/25 Blst.W.Dev) 1 puff INHALE RDAILY [facility] Last Admin: 05/06/24 07:26 Dose: 1 puff Documented By: SHRUTHI Glucose (Glucose Gel 15 Gm Gel..Gram.) 15 gm PO Q15M PRN; Protocol PRN Reason: per Hypoglycemia Standing Ord. Heparin Sodium (Porcine) (Heparin Sodium,Porcine 5,000 Unit/Ml Vial) 5,000 unit SUBCUT Q8H [facility] Last Admin: 05/06/24 04:11 Dose: 5,000 unit Documented By: SALBELEN Hydromorphone HCl (Hydromorphone Hcl 0.5 Mg/0.5 Ml Syringe) 0.5 mg IVPUSH Q4H PRN; Protocol PRN Reason: Pain, Severe (Pain Scale 7-10) Last Admin: 05/06/24 08:35 Dose: 0.5 mg Documented By: MADI Vancomycin HCl 500 mg/ Sodium (Chloride) 110 mls @ 110 mls/hr IV Q24H [facility] Insulin Glargine (Insulin Glargine,Hum.Rec.Anlog 100 Unit/Ml 10 Ml Vial) 18 unit SUBCUT BEDTIME [facility] Last Admin: 05/05/24 20:55 Dose: 18 unit Documented By: TRISTAN Insulin Human Lispro (Insulin Lispro 100 Unit/Ml 3 Ml Vial) 0 unit SUBCUT QIDACHS [facility]; Protocol Last Admin: 05/06/24 08:29 Dose: Not Given Documented By: MADI Non-Admin Reason: No Insulin Coverage Levetiracetam (Levetiracetam 500 Mg Tablet) 500 mg PO BID [facility] Last Admin: 05/06/24 08:35 Dose: 500 mg Documented By: MADI Magnesium Hydroxide (Milk Of Magnesia 30 Ml Oral.Susp) 30 ml PO DAILY PRN PRN Reason: Constipation Melatonin (Melatonin 3 Mg Tablet) 6 mg PO BEDTIME PRN PRN Reason: Insomnia Last Admin: 05/04/24 22:08 Dose: 6 mg Documented By: SOURAV Omeprazole (Omeprazole 20 Mg Capsule.Dr) 20 mg PO DAILY@0630 [facility] Last Admin: 05/06/24 06:57 Dose: 20 mg Documented By: CARLOS Ondansetron HCl (Ondansetron Hcl 4 Mg/2 Ml Vial) 4 mg IVPUSH Q8H PRN PRN Reason: Nausea and Vomiting Last Admin: 05/04/24 14:05 Dose: 4 mg Documented By: GARCIA Pharmacy Consult (Consult Rx Vancomycin Dosing) 1 each MISCELLANE DAILY PRN PRN Reason: Consult order Senna (Sennosides 8.6 Mg Tablet) 8.6 mg PO DAILY PRN PRN Reason: Constipation Sevelamer Carbonate (Sevelamer Carbonate Tablet 800 Mg Tablet) 1,600 mg PO TIDWM [facility] Last Admin: 05/06/24 08:35 Dose: 1,600 mg Documented By: MADI Sodium Chloride (0.9 % Sodium Chloride Flush 3 Ml Syringe) 3 ml IVFLUSH QSHIFT [facility] Last Admin: 05/06/24 04:19 Dose: 3 ml Documented By: CARLOS Labs 05/06/24 06:55 05/06/24 06:55 Labs: Laboratory Results - last 24 hr 05/05/24 05/05/24 05/05/24 10:45 11:23 16:20 MCV MCH MCHC RDW Plt Count MPV Absolute Nucleated RBC Nucleated RBC % (auto) Anion Gap Estim Creat Clear Calc Estimated GFR POC Glucose 135 H 230 H Random Glucose Calcium Pericard WBC 9750 Pericard RBC 083698 Pericard Neutrophils 95 Pericard Lymphocytes 1 Pericard Monocytes 4 Respiratory Panel Baumann See Note Adenovirus (Rapid PCR) Not Detected B.pert (TEM-PCR) Not Detected B.parapertussis DNA PCR Not Detected C. pneumoniae DNA (PCR) Not Detected Coronavirus OC43 (PCR) Not Detected Coronavirus HKU1 (PCR) Not Detected Coronavirus 229E (PCR) Not Detected Coronavirus NL63 (PCR) Not Detected Human Metapneumovir PCR Not Detected Influenza A (RT-PCR) Not Detected Influenza B (RT-PCR) Not Detected M. pneumoniae (PCR) Not Detected Parainfluenza 1 (PCR) Not Detected Parainfluenza 2 (PCR) Not Detected Parainfluenza 3 (PCR) Not Detected Parainfluenza 4 (PCR) Not Detected RSV (PCR) Not Detected Entero/Rhino (PCR) Not Detected SARS-CoV-2 RNA (RT-PCR) Not Detected 05/05/24 05/06/24 05/06/24 20:39 06:55 07:21 MCV 77.1 L MCH 24.3 L MCHC 31.5 RDW 18.8 H Plt Count 380 MPV 11.9 Absolute Nucleated RBC 0.040 H Nucleated RBC % (auto) 0.2 Anion Gap 27 H Estim Creat Clear Calc 6.9 Estimated GFR 5 POC Glucose 179 H 105 Random Glucose 94 Calcium 8.1 L Pericard WBC Pericard RBC Pericard Neutrophils Pericard Lymphocytes Pericard Monocytes Respiratory Panel Baumann Adenovirus (Rapid PCR) B.pert (TEM-PCR) B.parapertussis DNA PCR C. pneumoniae DNA (PCR) Coronavirus OC43 (PCR) Coronavirus HKU1 (PCR) Coronavirus 229E (PCR) Coronavirus NL63 (PCR) Human Metapneumovir PCR Influenza A (RT-PCR) Influenza B (RT-PCR) M. pneumoniae (PCR) Parainfluenza 1 (PCR) Parainfluenza 2 (PCR) Parainfluenza 3 (PCR) Parainfluenza 4 (PCR) RSV (PCR) Entero/Rhino (PCR) SARS-CoV-2 RNA (RT-PCR) Microbiology Microbiology Results: Microbiology 05/05/24 10:45 Gram Stain - Final Pericardial Fluid Anaerobic Culture - Preliminary No growth to date. Body Fluid Culture - Preliminary No growth to date. 05/03/24 Unknown Gram Stain - Final Pericardial Fluid Routine Culture - Final No growth after 2 days Anaerobic Culture - Preliminary No growth to date. Assessment and Plan (1) Pericardial effusion: Status: Acute (2) ESRD needing dialysis: Status: Acute (3) Acute pericardial effusion: Status: Inactive (4) Rash: Status: Acute (5) Hx of right BKA: Status: Acute Plan 69M PMH significant for?ESRD on HD M/W/F, insulin-dependent type 2 diabetes, peripheral vascular disease, s/p right BKA 04/[address] Cannon, seizure disorder, HFrEF, HTN, HLD, chronically on 2L home O2, GERD, and ROBERT on CPAP who presented to the ED with?rash x2 days. found to have mod severe pericardial effusion, course complicated by hemodynamic instability from tamponade, transferred to ICU, improved after pericardiocentesis, now downgraded to medical floor. Generalized Rash noted 7-10 days prior to admission No clinical change in last 24 hours ESR 92, CRP 19.06, trending down from 32.5 on April 05, 0.1 eosinophils ddx: Hydralazine induced vasculitis , systemic vasculitis , bacteremia /rule out septic emboli (less likely cultures negative), cholesterol embolization syndrome had angiogram 2 months ago (negative eos), small-vessel vasculitis, Anca associated, cryoglobulinemia ANCA vasculitides, SAIDA, cold agglutinin, total complement, cryoglobulin, hepatitis serology, antihistone antibody, HIV, ds DNA, SAMPLE WASHER antibody sent Discontinued hydralazine, continue IV vancomycin and cefazolin, started 05/01/2024 One dose of empiric IV steroids given, since low suspicion for active infection, no fevers, no leukocytosis Follow blood cultures Echo showed no vegetations Case discussed with ID she recommend to continue current antibiotics/added respiratory viral pathogen Moderate to severe Pericardial effusion complicated by tamponade Echocardiogram showed severe biventricular dysfunction and [id number] pericardial effusion s/p pericardial window - sent fluid, follow up repeat echo Chronic hypoxic respiratory failure on 2 L of home oxygen/obstructive sleep apnea on CPAP No acute hypoxia. ESRD on HD M/W/F Continue ShayanphJessica flores, nephro consulted, Dr. Rao following Status post right BKA on 04/11 obtain vascular surgery consultation for dressing change, patient complain of pain, added Dilaudid for severe pain and oxycodone for moderate pain Chronic anemia hematocrit stable Insulin-dependent type 2 diabetes continue Sliding-scale insulin, resume Lantus 18 units at bedtime (home dose 22 units), Diabetic diet Seizure disorder Continue Keppra HLD/PAD aspirin HTN Continue carvedilol, losartan hydralazine discontinued for possible hydralazine induced vasculitis Peripheral neuropathy Continue pregabalin full Code DVT Prophylaxis: hep sq reason for continued hospitalization:working up effuison, vasculitis, pain control Quality Stroke Does the patient have a stroke diagnosis?: No VTE Prior VTE?: No VTE Risk Level:: Medical - moderate - high VTE Device Contraindication: N/A - Device Ordered VTE Drug Contraindication: Treatment Not Indicated
[2024-05-06] MEDS: Morphine Sulfate ER 15 MG TABLET.ER PO ×2 (10:29→21:11)
--- NOTE | 2024-05-06 10:52 | PM.PNTS ---
Subjective Subjective Date of Service: 05/06/24 Interval history: Family at bedside. No events over the weekend. Drain output has significant tapered down. Physical Exam Vital Signs: Vital Signs: Last Vital Signs Temp 97.0 F 05/06/24 08:00 Pulse 71 05/06/24 08:00 Resp 19 05/06/24 08:00 BP 128/96 H 05/06/24 08:00 Pulse Ox 99 05/06/24 08:00 O2 Del Method Room Air 05/06/24 08:00 O2 Flow Rate 2 05/06/24 04:00 Oxygen Flow Rate 2 05/01/24 16:16 BMI result Body Mass Index 29.1 Const: General: comfortable and no acute distress Chest: Other: subxyphoid/abdominal incision clean, drain removed by Dr. Valdes and dressing applied Resp: Effort & Inspection: normal respiratory effort, not labored and not tachypneic Extrem: Other: punch biopsy site left leg clean Procedures Date of Service Date of Service: 05/06/24 Progress Note: A&P Assessment and plan (1) Pericardial tamponade: Status: Acute (2) Postop check: Status: Acute (3) Status post creation of pericardial window: Status: Acute (4) Rash: Status: Acute Plan POD #3 s/p pericardial window creation. Drain output significantly tapered down over the weekend and only 20cc for 24h. Hemodynamically stable. Drain removed uneventfully at bedside by Dr. Valdes. Repeat echo pending. Pericardial fluid cytology pending. Punch biopsy pathology pending. Time Spent With Patient Time: Total time managing care of this patient today ____ minutes. Quality Stroke Does the patient have a stroke diagnosis?: No VTE Prior VTE?: No VTE Risk Level:: Medical - moderate - high VTE Device Contraindication: N/A - Device Ordered VTE Drug Contraindication: Treatment Not Indicated
--- NOTE | 2024-05-06 12:20 | PM.PNCARD ---
Subjective Subjective Date of Service: 05/06/24 Principal diagnosis: Pericardial effusion status post window. Interval history: Patient was getting dialysis. Was having lot of pain at the amputation site and just received morphine and appears somewhat disoriented. He continues to have a rash throughout his body. Blood pressure is more or less stable. No overt heart failure symptoms. No overnight arrhythmias. Limited echocardiogram was very difficult and showed small circumferential pericardial effusion without any obvious evidence of tamponade. The pericardial surgical wound appears bloody. Discussed with the nurse and said that this was bloody when she came into the shift in his not increased Review of Systems Review of Systems Yes Unobtainable due to mental status Physical Exam Vital Signs: Last Vital Signs Temp 97.0 F 05/06/24 08:00 Pulse 71 05/06/24 08:00 Resp 19 05/06/24 08:00 BP 128/96 H 05/06/24 08:00 Pulse Ox 99 05/06/24 08:00 O2 Del Method Room Air 05/06/24 08:00 O2 Flow Rate 2 05/06/24 04:00 Oxygen Flow Rate 2 05/01/24 16:16 BMI result Body Mass Index 29.1 GENERAL APPEARANCE: Confused. SKIN: rash on legs. HEART: no murmurs, regular rate and rhythm. LUNGS: clear to auscultation bilaterally. ABDOMEN: soft, nontender. EXTREMITIES: Right BKA. PERIPHERAL PULSES: equal. NEUROLOGIC: No gross deficits, AAO X 3 Objective Labs and Meds 05/06/24 06:55 05/06/24 06:55 Lab results: Laboratory Results - last 24 hr 05/05/24 05/05/24 05/05/24 10:45 16:20 20:39 WBC RBC Hgb Hct MCV MCH MCHC RDW Plt Count MPV Absolute Nucleated RBC Nucleated RBC % (auto) Sodium Potassium Chloride Carbon Dioxide Anion Gap BUN Creatinine Estim Creat Clear Calc Estimated GFR POC Glucose 230 H 179 H Random Glucose Calcium Pericard WBC 9750 Pericard RBC [id number] Pericard Neutrophils 95 Pericard Lymphocytes 1 Pericard Monocytes 4 Respiratory Panel Baumann See Note Adenovirus (Rapid PCR) Not Detected B.pert (TEM-PCR) Not Detected B.parapertussis DNA PCR Not Detected C. pneumoniae DNA (PCR) Not Detected Coronavirus OC43 (PCR) Not Detected Coronavirus HKU1 (PCR) Not Detected Coronavirus 229E (PCR) Not Detected Coronavirus NL63 (PCR) Not Detected Human Metapneumovir PCR Not Detected Influenza A (RT-PCR) Not Detected Influenza B (RT-PCR) Not Detected M. pneumoniae (PCR) Not Detected Parainfluenza 1 (PCR) Not Detected Parainfluenza 2 (PCR) Not Detected Parainfluenza 3 (PCR) Not Detected Parainfluenza 4 (PCR) Not Detected RSV (PCR) Not Detected Entero/Rhino (PCR) Not Detected SARS-CoV-2 RNA (RT-PCR) Not Detected 05/06/24 05/06/24 06:55 07:21 WBC 16.9 H RBC 3.58 L Hgb 8.7 L Hct 27.6 L MCV 77.1 L MCH 24.3 L MCHC 31.5 RDW 18.8 H Plt Count 380 MPV 11.9 Absolute Nucleated RBC 0.040 H Nucleated RBC % (auto) 0.2 Sodium 142 Potassium 4.9 Chloride 100 Carbon Dioxide 20 L Anion Gap 27 H BUN 100 H Creatinine 9.94 H* Estim Creat Clear Calc 6.9 Estimated GFR 5 POC Glucose 105 Random Glucose 94 Calcium 8.1 L Pericard WBC Pericard RBC Pericard Neutrophils Pericard Lymphocytes Pericard Monocytes Respiratory Panel Baumann Adenovirus (Rapid PCR) B.pert (TEM-PCR) B.parapertussis DNA PCR C. pneumoniae DNA (PCR) Coronavirus OC43 (PCR) Coronavirus HKU1 (PCR) Coronavirus 229E (PCR) Coronavirus NL63 (PCR) Human Metapneumovir PCR Influenza A (RT-PCR) Influenza B (RT-PCR) M. pneumoniae (PCR) Parainfluenza 1 (PCR) Parainfluenza 2 (PCR) Parainfluenza 3 (PCR) Parainfluenza 4 (PCR) RSV (PCR) Entero/Rhino (PCR) SARS-CoV-2 RNA (RT-PCR) Progress Note: A&P Assessment and plan (1) Pericardial effusion: Status: Acute Assessment and Plan: Pericardial effusion with initial tamponade physiology status post pericardial window with a bloody dressing at this point time. Repeat echocardiogram shows small pericardial effusion. Etiology of pericardial effusion is unclear and studies are pending. Follow-up with them. Could be related to end-stage renal disease although he is on chronic dialysis. Follow-up cytology. May need a repeat echo, limited in a month's time. (2) Left ventricular systolic dysfunction (LVSD): Status: Acute Assessment and Plan: LV systolic dysfunction noted on initial echo prior to the window. Current limited echo is of poor quality to assess LV function. Repeat limited echo in a month's time. Question stress-induced cardiomyopathy. There was no evidence of acute coronary syndrome. Can resume carvedilol therapy at this point time. Overall workup would be conservative and prognosis is guarded. Will sign of the case. Thank you for allowing me to partake in his care Time Spent With Patient Time: Total time managing care of this patient today ____ minutes. Progress Note: Quality Stroke Does the patient have a stroke diagnosis?: No Procedures Date of Service Date of Service: 05/06/24
[2024-05-06 14:09] LABS: Glucose, Whole Blood 115 mg/dL (60-115)
--- NOTE | 2024-05-06 14:32 | MHC.SLORD ---
Speech Language Pathology Order Status: Pt was at dialysis this morning, MANUFACTURING ANALYST returned in the afternoon for swallow eval but pt heavily medicated for pain. RN consulted, reports no issues with PO tolerance. MANUFACTURING ANALYST to followup tomorrow.
[2024-05-06 15:01] LABS: Albumin Pericardial Fluid 3.2; Glucose Pericardial Fluid < 2; Total Protein Pericardial Flui 5.4
[2024-05-06 15:02] LABS: Amylase Pericardial Fluid 25
[2024-05-06 15:28] LABS: Glucose, Whole Blood 118 mg/dL (60-115)
[2024-05-06] MEDS: HYDROmorphone HCl 0.5 MG/0.5 ML SYRINGE 1 MG IVPUSH (15:41)
[2024-05-06] MEDS: Atorvastatin Calcium 40 MG TABLET PO (15:45)
[2024-05-06] MEDS: allopurinoL 100 MG TABLET PO (15:45)
--- NOTE | 2024-05-06 15:45 | MHC.CM.PN ---
EMR reviewed and per MD rounds, pt is not medically cleared for discharge due to management of uncontrolled pain.
[2024-05-06 18:34] LABS: Vancomycin Random 14.2 mcg/mL (15-20)
[2024-05-06 20:34] LABS: Glucose, Whole Blood 97 mg/dL (60-115)
[2024-05-06] MEDS: cefTRIAXone sodium 1 GM VIAL IVPUSH (21:12)
[2024-05-06 22:23] LABS: ANAchoice Screen NEGATIVE (NEGATIVE); RNP Antibodies <1.0 NEG AI (<1.0 NEG)
[2024-05-07] VITALS (8 sets, daily range): BP systolic 147–190; BP diastolic 57–90; PULSE 67–93; RESP 16–18; TEMP 36.5–37.1; O2SAT 93–100
[2024-05-07] MEDS: HYDROmorphone HCl 0.5 MG/0.5 ML SYRINGE 1 MG IVPUSH (02:02)
[2024-05-07] MEDS: Omeprazole 20 MG CAPSULE.DR PO (05:08)
[2024-05-07] MEDS: Heparin Sodium,Porcine 5,000 UNIT/ML VIAL 5000 UNIT SUBCUT ×3 (05:08→20:00)
[2024-05-07 07:00] LABS: Glucose, Whole Blood 55 mg/dL (60-115)
[2024-05-07] MEDS: 0.9 % Sodium Chloride Flush 3 ML SYRINGE IVFLUSH ×3 (07:05→22:27)
[2024-05-07] MEDS: Dextrose 50 % 25 GM/50 ML SYRINGE IVPUSH (07:05)
[2024-05-07 07:19] LABS: Glucose, Whole Blood 209 mg/dL (60-115)
[2024-05-07] MEDS: Naloxone HCl 0.4 MG/ML VIAL IVPUSH (07:37)
[2024-05-07 08:27] LABS: pH Pericardial Fluid 7.62
[2024-05-07] MEDS: polyethylene glycoL 3350 17 GM POWD.PACK PO (09:06)
[2024-05-07] MEDS: Sevelamer Carbonate Tablet 800 MG TABLET 1600 MG PO (09:06)
[2024-05-07] MEDS: Atorvastatin Calcium 40 MG TABLET PO (09:07)
[2024-05-07] MEDS: levETIRAcetam 500 MG TABLET PO ×2 (09:07→20:00)
[2024-05-07] MEDS: Acetaminophen 325 MG TABLET 650 MG PO (09:07)
--- NOTE | 2024-05-07 10:20 | HO.VASCPN ---
Subjective Subjective Date of Service: 05/07/24 Interval history: Beau continues to endorse a lot of pain. He does appear a little confused this morning. Nursing states that he was unarousable and Narcan was given, which woke him up. He has been eating well and sleeping well. He did have a 3-1/2 hour dialysis treatment yesterday. He continues to endorse the pain only in the site of his BKA. Nursing states he has been trying to take the dressing down often. Physical Exam Vital Signs: Vital Signs: Last Vital Signs Temp 98.5 F 05/07/24 07:21 Pulse 78 05/07/24 07:21 Resp 16 05/07/24 07:41 BP 147/70 H 05/07/24 07:21 Pulse Ox 95 05/07/24 07:21 O2 Del Method Nasal Cannula 05/07/24 07:21 O2 Flow Rate 2 05/07/24 07:21 Oxygen Flow Rate 2 05/01/24 16:16 BMI result Body Mass Index 29.1 Const: General: comfortable and no acute distress Orientation/consciousness: patient oriented x3 HEENT: Ears: hearing grossly normal bilaterally Resp: Effort & Inspection: normal respiratory effort and able to speak in complete sentences Auscultation: clear to auscultation bilaterally Cardio: Rate: regular rate Rhythm: regular rhythm Heart sounds: S1 normal heart sound present and S2 normal heart sound present Bruits: no abdominal aortic bruits, no carotid bruits, no femoral bruits and no renal bruits GI: Palpation (GI): No Abdominal aortic bruit present Neuro: General: patient oriented x3 Cranial nerves: Yes CN's II-XII intact bilaterally Extrem: Other: Right BKA site: Dressing not taken down this morning. Progress Note: A&P Assessment and plan (1) Hx of right BKA: Status: Acute Assessment and Plan: Beau is doing okay this morning. He did have a period where he was unresponsive this morning around 0700 and had to be given Narcan. He is awake and alert upon her arrival this morning. He continues to endorse significant pain at the site of the BKA. We will likely be taking the patient for an AKA on . The BKA site is not healing and is necrotic. We will need to have Cardiology clearance prior to that. We will continue to monitor. If there are any questions or concerns, please do not hesitate to reach out to us. Time Spent With Patient Time: Total time managing care of this patient today ____ minutes. Procedures Date of Service Date of Service: 05/07/24 Quality Stroke Does the patient have a stroke diagnosis?: No VTE Prior VTE?: No VTE Risk Level:: Medical - moderate - high VTE Device Contraindication: N/A - Device Ordered VTE Drug Contraindication: Treatment Not Indicated
--- NOTE | 2024-05-07 10:28 | P.PNCA_ITS ---
Subjective Subjective Date of Service: 05/07/24 Principal diagnosis: Preoperative assessment Interval history: Patient was no new cardiac symptoms to report. Echocardiogram shows small pericardial effusion without tamponade. Hemodynamically stable. No chest pain or heart failure syndrome. Has to undergo urgent surgery for above knee amputation as discussed by hospitalist team with vascular surgery. Review of Systems Review of Systems Yes Unobtainable due to mental status Physical Exam Vital Signs: Last Vital Signs Temp 98.5 F 05/07/24 07:21 Pulse 78 05/07/24 07:21 Resp 16 05/07/24 07:41 BP 147/70 H 05/07/24 07:21 Pulse Ox 95 05/07/24 07:21 O2 Del Method Nasal Cannula 05/07/24 07:21 O2 Flow Rate 2 05/07/24 07:21 Oxygen Flow Rate 2 05/01/24 16:16 BMI result Body Mass Index 29.1 GENERAL APPEARANCE: Confused. SKIN: rash on legs. HEART: no murmurs, regular rate and rhythm. LUNGS: clear to auscultation bilaterally. ABDOMEN: soft, nontender. EXTREMITIES: Right BKA. PERIPHERAL PULSES: equal. NEUROLOGIC: No gross deficits, AAO X 3 Objective Labs and Meds 05/06/24 06:55 05/06/24 06:55 Lab results: Laboratory Results - last 24 hr 05/02/24 05/05/24 05/06/24 18:48 10:45 14:05 POC Glucose 115 Pericard pH 7.62 Pericard Total Protein 5.4 Pericardial Albumin 3.2 Pericardial Glucose < 2 Pericardial Amylase 25 Random Vancomycin Autoimmune Screen NEGATIVE [employer] Antibody <1.0 NEG 05/06/24 05/06/24 05/06/24 15:16 18:02 20:30 POC Glucose 118 H 97 Pericard pH Pericard Total Protein Pericardial Albumin Pericardial Glucose Pericardial Amylase Random Vancomycin 14.2 L Autoimmune Screen [employer] Antibody 05/07/24 05/07/24 06:57 07:06 POC Glucose 55 L* 209 H Pericard pH Pericard Total Protein Pericardial Albumin Pericardial Glucose Pericardial Amylase Random Vancomycin Autoimmune Screen [employer] Antibody Progress Note: A&P Assessment and plan (1) Preoperative cardiovascular examination: Status: Acute Assessment and Plan: Preoperative cardiovascular risk stratification this elderly gentleman with multiple risk factors for vascular disease with new LV systolic dysfunction which does not appear significantly worse on echocardiogram yesterday with improved pericardial effusion with high likelihood of underlying coronary disease to undergo low to intermediate risk procedure under general anesthesia. He was intermediate to high risk for perioperative cardiovascular morbidity mortality. Please follow hemodynamics closely during the surgery and avoid significant hypotension. Will treat drop in blood pressure quickly. Full cardiac monitoring through the surgery. Postop monitoring on telemetry. Continue high-intensity statin therapy. Consult us in the perioperative. If need be. Will sign of the case. Thank you for allowing me to partake in his care Time Spent With Patient Time: Total time managing care of this patient today ____ minutes. Progress Note: Quality Stroke Does the patient have a stroke diagnosis?: No Procedures Date of Service Date of Service: 05/07/24
--- NOTE | 2024-05-07 10:35 | HO.PM.IMPN ---
Subjective Subjective Date of Service: 05/07/24 Interval History: right bka pain, ams ENT Ears, Nose, Mouth, and Throat: Reports Normal hearing present Neurologic Neurologic: Reports Normal hearing present and Denies Sensory deficit (Neuro) Physical Exam Vital Signs: Vital Signs: Last Vital Signs Temp 98.5 F 05/07/24 07:21 Pulse 78 05/07/24 07:21 Resp 16 05/07/24 07:41 BP 147/70 H 05/07/24 07:21 Pulse Ox 95 05/07/24 07:21 O2 Del Method Nasal Cannula 05/07/24 07:21 O2 Flow Rate 2 05/07/24 07:21 Oxygen Flow Rate 2 05/01/24 16:16 BMI result Body Mass Index 29.1 GENERAL APPEARANCE: Confused. SKIN: rash on legs. HEART: no murmurs, regular rate and rhythm. LUNGS: clear to auscultation bilaterally. ABDOMEN: soft, nontender. EXTREMITIES: Right BKA. PERIPHERAL PULSES: equal. NEUROLOGIC: No gross deficits, AAO X 3 Neuro: Cranial nerves: Yes Normal hearing present Sensory Exam: No Sensory deficit (Neuro) Objective Data Active Medications Acetaminophen (Acetaminophen 325 Mg Tablet) 650 mg PO Q6H PRN PRN Reason: Pain, Mild 1-3,fever,headache Last Admin: 05/07/24 09:07 Dose: 650 mg Documented By: TRI Albuterol Sulfate (Albuterol Sulfate 90 Mcg 8 Gm Inhaler) 2 puff INHALE RQ4H PRN PRN Reason: Shortness Of Breath Albuterol/Ipratropium (Albuterol/Iprat 2.5/0.5mg 3 Ml Ampul.Neb) 3 ml INHALE RQID PRN PRN Reason: Wheezing Allopurinol (Allopurinol 100 Mg Tablet) 100 mg PO MOWEFR@1600 NASREEN Last Admin: 05/06/24 15:45 Dose: 100 mg Documented By: MADI Atorvastatin Calcium (Atorvastatin Calcium 40 Mg Tablet) 40 mg PO MOWEFR@1600 NASREEN Last Admin: 05/06/24 15:45 Dose: 40 mg Documented By: MADI Atorvastatin Calcium (Atorvastatin Calcium 40 Mg Tablet) 40 mg PO SUTUTHSA@0900 [facility] Last Admin: 05/07/24 09:07 Dose: 40 mg Documented By: TRI Bisacodyl (Bisacodyl 10 Mg Supp.Rect) 10 mg CA DAILY PRN PRN Reason: Constipation Calcium Carbonate (Calcium Carbonate 750 Mg Tab.Chew) 750 mg PO Q4H PRN PRN Reason: Heartburn Ceftriaxone Sodium (Ceftriaxone Sodium 1 Gm Vial) 1 gm IVPUSH Q24H [facility] Last Admin: 05/06/24 21:12 Dose: 1 gm Documented By: DAVID Dextrose (Dextrose 50 % 25 Gm/50 Ml Syringe) 25 gm IVPUSH Q15M PRN; Protocol PRN Reason: per Hypoglycemia Standing Ord. Last Admin: 05/07/24 07:05 Dose: 25 gm Documented By: TRI Fluticasone/Umeclidinium/Vilanterol (Fluticasone/Umeclidinium/Vilanterol 100/62.5/25 Blst.W.Dev) 1 puff INHALE RDAILY [facility] Last Admin: 05/07/24 08:06 Dose: Not Given Documented By: EVENS Non-Admin Reason: Patient Condition Contraindication Glucose (Glucose Gel 15 Gm Gel..Gram.) 15 gm PO Q15M PRN; Protocol PRN Reason: per Hypoglycemia Standing Ord. Heparin Sodium (Porcine) (Heparin Sodium,Porcine 5,000 Unit/Ml Vial) 5,000 unit SUBCUT Q8H [facility] Last Admin: 05/07/24 05:08 Dose: 5,000 unit Documented By: DAVID Hydromorphone HCl (Hydromorphone Hcl 2 Mg Tablet) 2 mg PO Q6H PRN PRN Reason: Pain, Severe (Pain Scale 7-10) Vancomycin HCl 500 mg/ Sodium (Chloride) 110 mls @ 110 mls/hr IV Q24H [facility] Insulin Glargine (Insulin Glargine,Hum.Rec.Anlog 100 Unit/Ml 10 Ml Vial) 18 unit SUBCUT BEDTIME [facility] Last Admin: 05/06/24 21:25 Dose: Not Given Documented By: DAVID Non-Admin Reason: Physician Held Med Insulin Human Lispro (Insulin Lispro 100 Unit/Ml 3 Ml Vial) 0 unit SUBCUT QIDACHS [facility]; Protocol Last Admin: 05/07/24 07:05 Dose: Not Given Documented By: TRI Non-Admin Reason: No Insulin Coverage Levetiracetam (Levetiracetam 500 Mg Tablet) 500 mg PO BID [facility] Last Admin: 05/07/24 09:07 Dose: 500 mg Documented By: TRI Magnesium Hydroxide (Milk Of Magnesia 30 Ml Oral.Susp) 30 ml PO DAILY PRN PRN Reason: Constipation Melatonin (Melatonin 3 Mg Tablet) 6 mg PO BEDTIME PRN PRN Reason: Insomnia Last Admin: 05/04/24 22:08 Dose: 6 mg Documented By: SOURAV Naloxone HCl (Naloxone Hcl 0.4 Mg/Ml Vial) 0.04 mg IVPUSH Q5M PRN PRN Reason: Respiratory Rate < 10 Last Admin: 05/07/24 07:37 Dose: 0.04 mg Documented By: TRI Omeprazole (Omeprazole 20 Mg Capsule.Dr) 20 mg PO DAILY@0630 [facility] Last Admin: 05/07/24 05:08 Dose: 20 mg Documented By: DAVID Ondansetron HCl (Ondansetron Hcl 4 Mg/2 Ml Vial) 4 mg IVPUSH Q8H PRN PRN Reason: Nausea and Vomiting Last Admin: 05/04/24 14:05 Dose: 4 mg Documented By: GARCIA Pharmacy Consult (Consult Rx Vancomycin Dosing) 1 each MISCELLANE DAILY PRN PRN Reason: Consult order Polyethylene Glycol (Polyethylene Glycol 3350 17 Gm Powd.Pack) 17 gm PO DAILY [facility] Last Admin: 05/07/24 09:06 Dose: 17 gm Documented By: TRI Senna (Sennosides 8.6 Mg Tablet) 8.6 mg PO DAILY PRN PRN Reason: Constipation Sevelamer Carbonate (Sevelamer Carbonate Tablet 800 Mg Tablet) 1,600 mg PO TIDWM [facility] Last Admin: 05/07/24 09:06 Dose: 1,600 mg Documented By: TRI Sodium Chloride (0.9 % Sodium Chloride Flush 3 Ml Syringe) 3 ml IVFLUSH QSHIFT [facility] Last Admin: 05/07/24 07:05 Dose: 3 ml Documented By: TRI Labs 05/06/24 06:55 05/06/24 06:55 Labs: Laboratory Results - last 24 hr 05/02/24 05/05/24 05/06/24 18:48 10:45 14:05 POC Glucose 115 Pericard pH 7.62 Pericard Total Protein 5.4 Pericardial Albumin 3.2 Pericardial Glucose < 2 Pericardial Amylase 25 Random Vancomycin Autoimmune Screen NEGATIVE ASSEMBLY RIVETER Antibody <1.0 NEG 05/06/24 05/06/24 05/06/24 15:16 18:02 20:30 POC Glucose 118 H 97 Pericard pH Pericard Total Protein Pericardial Albumin Pericardial Glucose Pericardial Amylase Random Vancomycin 14.2 L Autoimmune Screen ASSEMBLY RIVETER Antibody 05/07/24 05/07/24 06:57 07:06 POC Glucose 55 L* 209 H Pericard pH Pericard Total Protein Pericardial Albumin Pericardial Glucose Pericardial Amylase Random Vancomycin Autoimmune Screen ASSEMBLY RIVETER Antibody Microbiology Microbiology Results: Microbiology 05/03/24 Unknown Gram Stain - Final Pericardial Fluid Routine Culture - Final No growth after 2 days Anaerobic Culture - Preliminary No growth to date. 05/05/24 10:45 Gram Stain - Final Pericardial Fluid Anaerobic Culture - Preliminary No growth to date. Body Fluid Culture - Final No growth after 2 days 05/01/24 17:33 Blood Culture - Final Blood - Venous No growth after 5 days. 05/01/24 16:51 Blood Culture - Final Blood - Venous No growth after 5 days. 05/03/24 Unknown Fungal Identification - Preliminary Pericardial Fluid No growth to date. Assessment and Plan (1) Pericardial effusion: Status: Acute (2) ESRD needing dialysis: Status: Acute (3) Acute pericardial effusion: Status: Inactive (4) Rash: Status: Acute (5) Hx of right BKA: Status: Acute Plan 69M PMH significant for?ESRD on HD M/W/F, insulin-dependent type 2 diabetes, peripheral vascular disease, s/p right BKA 04/[address] Cannon, seizure disorder, HFrEF, HTN, HLD, chronically on 2L home O2, GERD, and ROBERT on CPAP who presented to the ED with?rash x2 days. found to have mod severe pericardial effusion, course complicated by hemodynamic instability from tamponade, transferred to ICU, improved after pericardiocentesis, now downgraded to medical floor. Generalized Rash noted 7-10 days prior to admission No clinical change in last 24 hours ddx: Hydralazine induced vasculitis , systemic vasculitis , bacteremia /rule out septic emboli (less likely cultures negative), cholesterol embolization syndrome had angiogram 2 months ago (negative eos), small-vessel vasculitis, Anca associated, cryoglobulinemia ANCA vasculitides, SAIDA, cold agglutinin, total complement, cryoglobulin, hepatitis serology, antihistone antibody, HIV, ds DNA, ASSEMBLY RIVETER antibody sent Discontinued hydralazine, continue IV vancomycin and cefazolin, started 05/01/2024 One dose of empiric IV steroids given, since low suspicion for active infection, no fevers, no leukocytosis Echo showed no vegetations Case discussed with ID she recommend to continue current antibiotics/added respiratory viral pathogen acute toxic metabolic encephalopathy due to opiates, responded to low dose narcan will stop ms contin, change to po dilaudid 2mg q6h prn Moderate to severe Pericardial effusion complicated by tamponade Echocardiogram showed severe biventricular dysfunction and [id number] pericardial effusion s/p pericardial window - sent fluid, follow up repeat echo Chronic hypoxic respiratory failure on 2 L of home oxygen/obstructive sleep apnea on CPAP No acute hypoxia. ESRD on HD M/W/F Continue VelphJessica flores, nephro consulted, Dr. Rao following Status post right BKA now with necrosis at site, plan for AKA, cardio eval for risk strat Chronic anemia hematocrit stable Insulin-dependent type 2 diabetes continue Sliding-scale insulin, resume Lantus 18 units at bedtime (home dose 22 units), Diabetic diet Seizure disorder Continue Keppra HLD/PAD aspirin HTN Continue carvedilol, losartan hydralazine discontinued for possible hydralazine induced vasculitis Peripheral neuropathy Continue pregabalin full Code DVT Prophylaxis: hep sq reason for continued hospitalization:plan for aka Quality Stroke Does the patient have a stroke diagnosis?: No VTE Prior VTE?: No VTE Risk Level:: Medical - moderate - high VTE Device Contraindication: N/A - Device Ordered VTE Drug Contraindication: Treatment Not Indicated
--- NOTE | 2024-05-07 11:16 | MHC.SL.SWA ---
Speech Pathologist Impression: Mild Oral Phase Dysphagia Dysphasia Diet Status: No Change Liquid Consistency and Strategies for Safe Swallow: Liquid Intake Recommendation: Thin Liquid Intake Strategies: Small Sips Solid Food Consistency: Dietary Recommendations: Regular Additional Modifications to Solid Foods: Mastication is mildly prolonged in setting of missing teeth, with mild oral residue post-swallow, which cleared with liquid wash. Otherwise oral and pharyngeal phase of the swallow is functional. No overt s/s of aspiration seen. Patient's son was present and denies overt symptoms of dysphagia, reporting that patient does require assistance feeding. No changes made to present diet order. Recommend continue on REGULAR solids and THIN liquids, pills CRUSHED in PUREE. Patient will need 1:1 assistance feeding, alternate bites with sips of liquid to promote oral clearance. Oral Medication Intake: Crushed with Puree Please contact the pharmacy regarding appropriate crushable or liquid drug formulations that are available whenever modified delivery is recommended. Compensatory Strategies and Precautions to be Taken for Safe Swallow: Sitting Upright (90 deg) Small Bites and Sips Alternate Liquids/Solids Rate of Ingestion Change Oral Check Supervision While Eating and Drinking for Safe Swallow: Total Assistance (1:1) Recommendation for Speech: NA:Typical Evaluation Chopper Feeder Clinican/Clinical Fellow: No Supervisory Statement: I have reviewed and agree with the student/clinical fellow's documentation: N/A Speech Language Pathologist: Cinthya Montalvo M.A., CCC-TRANSPORTATION LEAD
[2024-05-07 11:18] LABS: Glucose, Whole Blood 164 mg/dL (60-115)
--- NOTE | 2024-05-07 11:59 | MHC.CM.PN ---
CM MET W/PT'S SON CAITLYN (AND ANOTHER FAMILY MEMBER) AT BEDSIDE REQUESTING A CONSENT FORM FOR HIM (CAITLYN) TO SIGN REGARDING SPEAKING W/PT'S BROTHER LILIYA DE SANTIAGO [phone], ALYSSA AWARE CM WILL GET TIEING MACHINE OPERATOR TO GET CONSENT FROM PT. ALYSSA REPORTS HE WILL BE HERE AT HOSPITAL UNTIL 1PM. WHEN CM RETURNED W/TIEING MACHINE OPERATOR PT IS ONLY ONE IN ROOM, CM ATTEMPTED TO GET AT LEAST VERBAL CONSENT FROM PT HOWEVER DECLINES AT THIS TIME AND REPORTS HE DOES NOT WANT TO TO GIVE CM ANY INFORMATION, PER DONOR RELATIONS ASSOCIATE UNSURE IF PT IS UNDERSTANDING. PT'S SON DID NOT RETURN TO PRIOR TO CM/TIEING MACHINE OPERATOR LEAVING.
--- NOTE | 2024-05-07 13:12 | P.PNNP_ITS ---
Subjective Subjective Date of Service: 05/07/24 Principal diagnosis: Preoperative assessment Interval history: right bka pain, ams Events noted discussed with vascular surgeon Physical Exam 2 Vital Signs: Vital Signs: Last Vital Signs Temp 98.8 F 05/07/24 11:35 Pulse 82 05/07/24 11:35 Resp 18 05/07/24 11:35 BP 165/77 H 05/07/24 11:35 Pulse Ox 93 05/07/24 11:35 O2 Del Method Nasal Cannula 05/07/24 11:35 O2 Flow Rate 2 05/07/24 11:35 Oxygen Flow Rate 2 05/01/24 16:16 BMI result Body Mass Index 29.1 Const: General: no acute distress Eyes: EOM: EOMs intact bilaterally Neck: Neck: Yes supple Resp: Auscultation: diminished lung sounds Cardio: Rate: regular rate GI: Palpation (GI): Soft to palpation Neuro: General: moves all extremities Objective Data Labs 05/06/24 06:55 05/06/24 06:55 Labs: Laboratory Results - last 24 hr 05/02/24 05/05/24 05/06/24 18:48 10:45 14:05 POC Glucose 115 Pericard pH 7.62 Pericard Total Protein 5.4 Pericardial Albumin 3.2 Pericardial Glucose < 2 Pericardial Amylase 25 Random Vancomycin Autoimmune Screen NEGATIVE DUMB WAITER OPERATOR Antibody <1.0 NEG 05/06/24 05/06/24 05/06/24 15:16 18:02 20:30 POC Glucose 118 H 97 Pericard pH Pericard Total Protein Pericardial Albumin Pericardial Glucose Pericardial Amylase Random Vancomycin 14.2 L Autoimmune Screen DUMB WAITER OPERATOR Antibody 05/07/24 05/07/24 05/07/24 06:57 07:06 11:12 POC Glucose 55 L* 209 H 164 H Pericard pH Pericard Total Protein Pericardial Albumin Pericardial Glucose Pericardial Amylase Random Vancomycin Autoimmune Screen DUMB WAITER OPERATOR Antibody Microbiology Microbiology Results: Microbiology 05/03/24 Unknown Pericardial Fluid Gram Stain - Final 05/03/24 Unknown Pericardial Fluid Routine Culture - Final No growth after 2 days 05/03/24 Unknown Pericardial Fluid Anaerobic Culture - Preliminary No growth to date. 05/05/24 10:45 Pericardial Fluid Gram Stain - Final 05/05/24 10:45 Pericardial Fluid Anaerobic Culture - Preliminary No growth to date. 05/05/24 10:45 Pericardial Fluid Body Fluid Culture - Final No growth after 2 days 05/01/24 17:33 Blood - Venous Blood Culture - Final No growth after 5 days. 05/01/24 16:51 Blood - Venous Blood Culture - Final No growth after 5 days. 05/03/24 Unknown Pericardial Fluid Fungal Identification - Preliminary No growth to date. Procedures Date of Service Date of Service: 05/07/24 Assessment & Plan Assessment and plan (1) ESRD needing dialysis: Status: Acute Plan 69 man with the end stage renal disease and pericardial effusion. Usually he is dialysis Monday at [facility] [place]. Hemodialysis per protocol HD via PermCath Optimize fluid removal. Pericardial effusion status post pericardial window. Peripheral has disease management per vascular surgery; probably would require AKA Concur with other medical management Time Spent With Patient Time: Total time managing care of this patient today ____ minutes. Progress Note: Quality Stroke Does the patient have a stroke diagnosis?: No
[2024-05-07 16:17] LABS: Glucose, Whole Blood 127 mg/dL (60-115)
[2024-05-07 21:12] LABS: Glucose, Whole Blood 117 mg/dL (60-115)
[2024-05-07 22:13] LABS: Complement Total CH50 >60 U/mL (31-60)
[2024-05-07] MEDS: cefTRIAXone sodium 1 GM VIAL IVPUSH (22:27)
[2024-05-08 04:00] VITALS: BP 141/76; PULSE 75; RESP 16; TEMP 36.9; O2SAT 97
[2024-05-08] MEDS: Heparin Sodium,Porcine 5,000 UNIT/ML VIAL 5000 UNIT SUBCUT ×2 (05:07→20:02)
[2024-05-08] MEDS: Omeprazole 20 MG CAPSULE.DR PO (05:07)
[2024-05-08 06:54] LABS: Hematocrit 29.5 % (42.0-52.0); Mean Corpuscular HGB Conc 30.5 g/dl (31.0-36.0); Mean Corpuscular Hemoglobin 24.1 pg (27.0-33.0); Mean Corpuscular Volume 78.9 fL (80.0-98.0); Mean Platelet Volume 11.6 fL (9.4-12.4); NRBC Pct Auto 0.1 /100WBC (0.0-0.2); Platelet Count 339 X10*3/uL (160-400); Red Blood Count 3.74 X10*6/uL (4.60-5.80); Red Cell Distribution Width 18.6 % (11.0-16.0); White Blood Count 15.3 X10*3/uL (4.8-10.8)
[2024-05-08 07:18] LABS: Anion Gap 21 (12-20); Blood Urea Nitrogen 66 mg/dL (9-16); Calcium 9.2 mg/dL (8.4-10.2); Carbon Dioxide 25 mmol/L (22-29); Chloride 98 mmol/L (96-108); Creatinine Clr Calc Pharmacy 8.4; Estimated Glomerular Filt Rate 7; Glucose Random 131 mg/dL (60-115); Sodium 139 mmol/L (135-145)
[2024-05-08 07:29] LABS: Histone Antibody <1.0 U (<1.0)
[2024-05-08 07:30] VITALS: BP 172/60; PULSE 82; RESP 18; TEMP 36.7; O2SAT 92
[2024-05-08 07:41] LABS: Glucose, Whole Blood 117 mg/dL (60-115)
[2024-05-08] MEDS: polyethylene glycoL 3350 17 GM POWD.PACK PO (08:24)
[2024-05-08] MEDS: levETIRAcetam 500 MG TABLET PO (08:24)
[2024-05-08] MEDS: 0.9 % Sodium Chloride Flush 3 ML SYRINGE IVFLUSH (08:24)
[2024-05-08] MEDS: Sevelamer Carbonate Tablet 800 MG TABLET 1600 MG PO ×2 (08:24→17:12)
--- NOTE | 2024-05-08 09:08 | MHC.CM.PN ---
EMR REVIEWED, PER SURGICAL NOTES PLAN FOR PT TO HAVE AKA TOMORROW 05/09, ANTIC PT WILL NEED STR AND PT'S FAMILY WILL WANT LOCAL FACILITY, CM WILL CONT TO FOLLOW DC NEEDS.
--- NOTE | 2024-05-08 12:04 | HO.VASCPN ---
Subjective Subjective Date of Service: 05/08/24 Interval history: Beau is doing ok this morning. He appears comfortable and is sleeping. He is easily arousable. He continues to endorse significant pain at the BKA site. He is eating and drinking well. He is due for HD later today. He has no new concerns this morning. Physical Exam Vital Signs: Vital Signs: Last Vital Signs Temp 98.0 F 05/08/24 07:30 Pulse 82 05/08/24 07:30 Resp 18 05/08/24 07:30 BP 172/60 H 05/08/24 07:30 Pulse Ox 92 05/08/24 07:30 O2 Del Method Nasal Cannula 05/08/24 07:30 O2 Flow Rate 2 05/08/24 07:30 Oxygen Flow Rate 2 05/01/24 16:16 BMI result Body Mass Index 29.1 Const: General: comfortable and no acute distress Orientation/consciousness: patient oriented x3 HEENT: Ears: hearing grossly normal bilaterally Resp: Effort & Inspection: normal respiratory effort and able to speak in complete sentences Auscultation: clear to auscultation bilaterally Cardio: Rate: regular rate Rhythm: regular rhythm Heart sounds: S1 normal heart sound present and S2 normal heart sound present Bruits: no abdominal aortic bruits, no carotid bruits, no femoral bruits and no renal bruits GI: Palpation (GI): No Abdominal aortic bruit present Neuro: General: patient oriented x3 Cranial nerves: Yes CN's II-XII intact bilaterally Extrem: Other: Right BKA site: dressing not taken down this morning. Progress Note: A&P Assessment and plan (1) Hx of right BKA: Status: Acute Assessment and Plan: Beau remains stable. He continues to endorse significant pain at the site of the BKA. We will be scheduling him for surgery tomorrow for an AKA. He has gotten clearance from Cardiology, whom recommends following his hemodynamics closely in surgery and remaining on the tele floor postop. His Echo reveals only a small pleural effusion without evidence of tamponade, improved since Monday. Nephrology recommends continuing with his HD on // and to optimize fluid removal. We will place the pt NPO at midnight. We will continue to monitor. If there are any questions or concerns, please do not hesitate to reach out to us. Time Spent With Patient Time: Total time managing care of this patient today ____ minutes. Procedures Date of Service Date of Service: 05/08/24 Quality Stroke Does the patient have a stroke diagnosis?: No VTE Prior VTE?: No VTE Risk Level:: Medical - moderate - high VTE Device Contraindication: N/A - Device Ordered VTE Drug Contraindication: Treatment Not Indicated
[2024-05-08 13:04] LABS: Cold Agglutinin Screen None Detected Titer (None Detected)
--- NOTE | 2024-05-08 13:55 | HO.PM.IMPN ---
Subjective Subjective Date of Service: 05/08/24 Interval History: Seen and evaluated this morning sleepy, alert with stimulation reporting pain in BKA site elevated BP Review of Systems Review of Systems: Yes all other systems are reviewed and are negative Physical Exam Vital Signs: Vital Signs: Last Vital Signs Temp 98.0 F 05/08/24 07:30 Pulse 82 05/08/24 07:30 Resp 18 05/08/24 07:30 BP 172/60 H 05/08/24 07:30 Pulse Ox 92 05/08/24 07:30 O2 Del Method Nasal Cannula 05/08/24 07:30 O2 Flow Rate 2 05/08/24 07:30 Oxygen Flow Rate 2 05/01/24 16:16 BMI result Body Mass Index 29.1 Const: Other: General resting in bed,in no acute distress. Neck supple no JVD, no distended neck veins. CVS regular rate rhythm, Respiratory lungs clear to auscultation, diminished, no respiratory distress, no wheeze, no rhonchi. Gastrointestinal abdomen soft, non tender, bowel sounds audible Extremities right BKA dressing in place Neuro non focal , speech clear. Skin non blanchable rash back, Right BKA site: Dark violaceous discoloration noted all throughout the flap and above the incision site. Bogginess felt all throughout the flap, just below the incision site. There is serosanginous drainage noted on the lateral aspect of the incision site. Pain to palpation of the entire site. Right third finger: violaceous coloring with scabbed over prick sites noted to the left of the nail bed. Painful to palpation. Left great toe: discoloration noted to both sides of the nailbed. Not painful to palpation. Objective Data Active Medications Acetaminophen (Acetaminophen 325 Mg Tablet) 650 mg PO Q6H PRN PRN Reason: Pain, Mild 1-3,fever,headache Last Admin: 05/07/24 09:07 Dose: 650 mg Documented By: TRI Albuterol Sulfate (Albuterol Sulfate 90 Mcg 8 Gm Inhaler) 2 puff INHALE RQ4H PRN PRN Reason: Shortness Of Breath Albuterol/Ipratropium (Albuterol/Iprat 2.5/0.5mg 3 Ml Ampul.Neb) 3 ml INHALE RQID PRN PRN Reason: Wheezing Allopurinol (Allopurinol 100 Mg Tablet) 100 mg PO MOWEFR@1600 [facility] Last Admin: 05/06/24 15:45 Dose: 100 mg Documented By: MADI Atorvastatin Calcium (Atorvastatin Calcium 40 Mg Tablet) 40 mg PO MOWEFR@1600 [facility] Last Admin: 05/06/24 15:45 Dose: 40 mg Documented By: MADI Atorvastatin Calcium (Atorvastatin Calcium 40 Mg Tablet) 40 mg PO SUTUTHSA@0900 [facility] Last Admin: 05/07/24 09:07 Dose: 40 mg Documented By: TRI Bisacodyl (Bisacodyl 10 Mg Supp.Rect) 10 mg [place] DAILY PRN PRN Reason: Constipation Calcium Carbonate (Calcium Carbonate 750 Mg Tab.Chew) 750 mg PO Q4H PRN PRN Reason: Heartburn Ceftriaxone Sodium (Ceftriaxone Sodium 1 Gm Vial) 1 gm IVPUSH Q24H [facility] Last Admin: 05/07/24 22:27 Dose: 1 gm Documented By: KEREN Dextrose (Dextrose 50 % 25 Gm/50 Ml Syringe) 25 gm IVPUSH Q15M PRN; Protocol PRN Reason: per Hypoglycemia Standing Ord. Last Admin: 05/07/24 07:05 Dose: 25 gm Documented By: TRI Fluticasone/Umeclidinium/Vilanterol (Fluticasone/Umeclidinium/Vilanterol 100/62.5/25 Blst.W.Dev) 1 puff INHALE RDAILY [facility] Last Admin: 05/08/24 08:17 Dose: Not Given Documented By: EMELIA Non-Admin Reason: See Note Glucose (Glucose Gel 15 Gm Gel..Gram.) 15 gm PO Q15M PRN; Protocol PRN Reason: per Hypoglycemia Standing Ord. Heparin Sodium (Porcine) (Heparin Sodium,Porcine 5,000 Unit/Ml Vial) 5,000 unit SUBCUT Q8H [facility] Last Admin: 05/08/24 12:06 Dose: Not Given Documented By: SHAHZAD Non-Admin Reason: Off unit: Dialysis Hydromorphone HCl (Hydromorphone Hcl 2 Mg Tablet) 2 mg PO Q6H PRN PRN Reason: Pain, Severe (Pain Scale 7-10) Vancomycin HCl 500 mg/ Sodium (Chloride) 110 mls @ 110 mls/hr IV Q24H [facility] Insulin Glargine (Insulin Glargine,Hum.Rec.Anlog 100 Unit/Ml 10 Ml Vial) 18 unit SUBCUT BEDTIME [facility] Last Admin: 05/07/24 21:24 Dose: Not Given Documented By: KEREN Non-Admin Reason: Patient Refused Insulin Human Lispro (Insulin Lispro 100 Unit/Ml 3 Ml Vial) 0 unit SUBCUT QIDACHS [facility]; Protocol Last Admin: 05/08/24 13:50 Dose: Not Given Documented By: SHAHZAD Non-Admin Reason: Off unit: Dialysis Levetiracetam (Levetiracetam 500 Mg Tablet) 500 mg PO BID [facility] Last Admin: 05/08/24 08:24 Dose: 500 mg Documented By: SHAHZAD Magnesium Hydroxide (Milk Of Magnesia 30 Ml Oral.Susp) 30 ml PO DAILY PRN PRN Reason: Constipation Melatonin (Melatonin 3 Mg Tablet) 6 mg PO BEDTIME PRN PRN Reason: Insomnia Last Admin: 05/04/24 22:08 Dose: 6 mg Documented By: SOURAV Naloxone HCl (Naloxone Hcl 0.4 Mg/Ml Vial) 0.04 mg IVPUSH Q5M PRN PRN Reason: Respiratory Rate < 10 Last Admin: 05/07/24 07:37 Dose: 0.04 mg Documented By: TRI Omeprazole (Omeprazole 20 Mg Capsule.Dr) 20 mg PO DAILY@0630 [facility] Last Admin: 05/08/24 05:07 Dose: 20 mg Documented By: KEREN Ondansetron HCl (Ondansetron Hcl 4 Mg/2 Ml Vial) 4 mg IVPUSH Q8H PRN PRN Reason: Nausea and Vomiting Last Admin: 05/04/24 14:05 Dose: 4 mg Documented By: GARCIA Pharmacy Consult (Consult Rx Vancomycin Dosing) 1 each MISCELLANE DAILY PRN PRN Reason: Consult order Polyethylene Glycol (Polyethylene Glycol 3350 17 Gm Powd.Pack) 17 gm PO DAILY [facility] Last Admin: 05/08/24 08:24 Dose: 17 gm Documented By: SHAHZAD Senna (Sennosides 8.6 Mg Tablet) 8.6 mg PO DAILY PRN PRN Reason: Constipation Sevelamer Carbonate (Sevelamer Carbonate Tablet 800 Mg Tablet) 1,600 mg PO TIDWM [facility] Last Admin: 05/08/24 12:06 Dose: Not Given Documented By: SHAHZAD Non-Admin Reason: Off unit: Dialysis Sodium Chloride (0.9 % Sodium Chloride Flush 3 Ml Syringe) 3 ml IVFLUSH QSHIFT [facility] Last Admin: 05/08/24 08:24 Dose: 3 ml Documented By: SHAHZAD Labs 05/08/24 06:36 05/08/24 06:36 Labs: Laboratory Results - last 24 hr 05/02/24 05/07/24 05/07/24 18:48 15:59 21:10 MCV MCH MCHC RDW Plt Count MPV Absolute Nucleated RBC Nucleated RBC % (auto) Anion Gap Estim Creat Clear Calc Estimated GFR POC Glucose 127 H 117 H Random Glucose Calcium Tot Complement (CH50) >60 H Blood Type Antibody Screen 05/08/24 05/08/24 05/08/24 06:36 07:29 12:51 MCV 78.9 L MCH 24.1 L MCHC 30.5 L RDW 18.6 H Plt Count 339 MPV 11.6 Absolute Nucleated RBC 0.020 H Nucleated RBC % (auto) 0.1 Anion Gap 21 H Estim Creat Clear Calc 8.4 Estimated GFR 7 POC Glucose 117 H Random Glucose 131 H Calcium 9.2 D Tot Complement (CH50) Blood Type A Positive Antibody Screen NEGATIVE Microbiology Microbiology Results: Microbiology 05/03/24 Unknown Gram Stain - Final Pericardial Fluid Routine Culture - Final No growth after 2 days Anaerobic Culture - Final NO GROWTH AFTER 5 DAYS 05/05/24 10:45 Gram Stain - Final Pericardial Fluid Anaerobic Culture - Preliminary No growth to date. Body Fluid Culture - Final No growth after 2 days Assessment and Plan (1) Left ventricular systolic dysfunction (LVSD): Status: Acute (2) Status post creation of pericardial window: Status: Acute (3) Pericardial tamponade: Status: Acute (4) Pericardial effusion: Status: Acute (5) PVD (peripheral vascular disease): Status: Acute (6) ESRD needing dialysis: Status: Acute Plan 69M PMH significant for?ESRD on HD M/W/F, insulin-dependent type 2 diabetes, peripheral vascular disease, s/p right BKA 04/[address] Cannon, seizure disorder, HFrEF, HTN, HLD, chronically on 2L home O2, GERD, and ROBERT on CPAP who presented to the ED with?rash x2 days. found to have mod severe pericardial effusion, course complicated by hemodynamic instability from tamponade, transferred to ICU, improved after pericardiocentesis, now downgraded to medical floor. Generalized Rash noted 7-10 days prior to admission, seems to be improving ddx: Hydralazine induced vasculitis , systemic vasculitis , bacteremia /rule out septic emboli (less likely as cultures negative), cholesterol embolization syndrome had angiogram 2 months ago (negative eos), small-vessel vasculitis, Anca associated, cryoglobulinemia ANCA vasculitides, SAIDA, cold agglutinin, total complement, cryoglobulin, hepatitis serology, antihistone antibody, HIV, ds DNA, [employer] antibody pending Discontinued hydralazine continue IV vancomycin and cefazolin, started 05/01/2024 One dose of empiric IV steroids given Echo showed no vegetations Case discussed with ID she recommend to continue current antibiotics/added respiratory viral pathogen (-ve ) acute toxic metabolic encephalopathy due to opiates, responded to low dose narcan could be also from Keppra stop ms contin, change to po dilaudid 2mg q6h prn Moderate to severe Pericardial effusion complicated by tamponade Echocardiogram showed severe biventricular dysfunction and [id number] pericardial effusion s/p pericardial window - follow up repeat echo Fluid analysis showing exudative effusion suggesting infection\inflammatory cause Chronic hypoxic respiratory failure on 2 L of home oxygen/obstructive sleep apnea on CPAP No acute hypoxia. ESRD on HD M/W/F Continue Velphoro, Lasix, nephro consulted, Dr. Rao following Status post right BKA now with necrosis at site, plan for AKA, cardio clearance for surgery as low-mod risk plan surgery tomorrow Chronic anemia hematocrit stable Insulin-dependent type 2 diabetes continue Sliding-scale insulin, resume Lantus 18 units at bedtime (home dose 22 units), Diabetic diet Seizure disorder Continue Keppra HLD/PAD aspirin HTN Continue carvedilol, losartan hydralazine discontinued for possible hydralazine induced vasculitis Peripheral neuropathy Continue pregabalin full Code DVT Prophylaxis: hep sq reason for continued hospitalization:plan for aka tomorrow. Quality Stroke Does the patient have a stroke diagnosis?: No VTE Prior VTE?: No VTE Risk Level:: Medical - moderate - high VTE Device Contraindication: N/A - Device Ordered VTE Drug Contraindication: Treatment Not Indicated
[2024-05-08 16:08] VITALS: BP 188/81; PULSE 94; RESP 16; TEMP 37.3; O2SAT 96
[2024-05-08] MEDS: allopurinoL 100 MG TABLET PO (17:13)
[2024-05-08] MEDS: amLODIPine Besylate 5 MG TABLET PO (17:13)
[2024-05-08] MEDS: Atorvastatin Calcium 40 MG TABLET PO (17:13)
[2024-05-08] MEDS: hydrALAZINE HCl 25 MG TABLET PO (17:13)
[2024-05-08 18:58] VITALS: BP 97/58
[2024-05-08 19:00] LABS: Vancomycin Random 10.9 mcg/mL (15-20)
[2024-05-08 19:45] VITALS: BP 126/65; PULSE 86; RESP 16; TEMP 37; O2SAT 99
[2024-05-08] MEDS: Midodrine HCl 10 MG TABLET PO (20:01)
[2024-05-08] MEDS: vancomycin HCL 750 MG in 0.9 % Sodium Chloride 250 ML 265 MG IV (20:02)
--- NOTE | 2024-05-08 20:38 | P.PNNP_ITS ---
Subjective Subjective Date of Service: 05/08/24 Principal diagnosis: Preoperative assessment Interval history: Seen and evaluated this morning ;Reporting pain in BKA site Physical Exam 2 Vital Signs: Vital Signs: Last Vital Signs Temp 98.6 F 05/08/24 19:45 Pulse 86 05/08/24 19:45 Resp 16 05/08/24 19:45 BP 126/65 05/08/24 19:45 Pulse Ox 99 05/08/24 19:45 O2 Del Method Nasal Cannula 05/08/24 19:45 O2 Flow Rate 2 05/08/24 19:45 Oxygen Flow Rate 2 05/01/24 16:16 BMI result Body Mass Index 29.1 Const: General: no acute distress Eyes: EOM: EOMs intact bilaterally Resp: Auscultation: diminished lung sounds Cardio: Rate: regular rate GI: Palpation (GI): Soft to palpation Neuro: Other: Sleepy Objective Data Labs 05/08/24 06:36 05/08/24 06:36 Labs: Laboratory Results - last 24 hr 05/02/24 05/07/24 05/08/24 18:48 21:10 06:36 WBC 15.3 H RBC 3.74 L Hgb 9.0 L Hct 29.5 L MCV 78.9 L MCH 24.1 L MCHC 30.5 L RDW 18.6 H Plt Count 339 MPV 11.6 Absolute Nucleated RBC 0.020 H Nucleated RBC % (auto) 0.1 Sodium 139 Potassium 5.0 Chloride 98 Carbon Dioxide 25 Anion Gap 21 H BUN 66 H Creatinine 8.15 H* Estim Creat Clear Calc 8.4 Estimated GFR 7 POC Glucose 117 H Random Glucose 131 H Calcium 9.2 D Random Vancomycin Tot Complement (CH50) >60 H Blood Type Antibody Screen 05/08/24 05/08/24 05/08/24 07:29 12:51 18:17 WBC RBC Hgb Hct MCV MCH MCHC RDW Plt Count MPV Absolute Nucleated RBC Nucleated RBC % (auto) Sodium Potassium Chloride Carbon Dioxide Anion Gap BUN Creatinine Estim Creat Clear Calc Estimated GFR POC Glucose 117 H Random Glucose Calcium Random Vancomycin 10.9 L Tot Complement (CH50) Blood Type A Positive Antibody Screen NEGATIVE Microbiology Microbiology Results: Microbiology 05/03/24 Unknown Pericardial Fluid Gram Stain - Final 05/03/24 Unknown Pericardial Fluid Routine Culture - Final No growth after 2 days 05/03/24 Unknown Pericardial Fluid Anaerobic Culture - Final NO GROWTH AFTER 5 DAYS 05/05/24 10:45 Pericardial Fluid Gram Stain - Final 05/05/24 10:45 Pericardial Fluid Anaerobic Culture - Preliminary No growth to date. 05/05/24 10:45 Pericardial Fluid Body Fluid Culture - Final No growth after 2 days 05/01/24 17:33 Blood - Venous Blood Culture - Final No growth after 5 days. 05/01/24 16:51 Blood - Venous Blood Culture - Final No growth after 5 days. 05/03/24 Unknown Pericardial Fluid Fungal Identification - Preliminary No growth to date. Procedures Date of Service Date of Service: 05/08/24 Assessment & Plan Assessment and plan (1) ESRD needing dialysis: Status: Acute Plan Usually gets HD on MWF; Needs more UF Renal Diet( 2 Gm Na/K/ Phos restricted/fluid restriction) Phos binders with meals. C/W rest of current management Progress Note: Quality Stroke Does the patient have a stroke diagnosis?: No
[2024-05-08 21:10] LABS: Glucose, Whole Blood 110 mg/dL (60-115)
[2024-05-08 23:35] VITALS: BP 155/79; PULSE 92; RESP 20; TEMP 37.1; O2SAT 92
[2024-05-08] MEDS: cefTRIAXone sodium 1 GM VIAL IVPUSH (23:39)
[2024-05-08] MEDS: diphenhydrAMINE HCl 2 % Cream 28 GM TUBE 1 APPL TOPICAL (23:42)
[2024-05-08 23:52] LABS: Glucose, Whole Blood 185 mg/dL (60-115)
[2024-05-09] VITALS (12 sets, daily range): BP systolic 120–190; BP diastolic 58–90; PULSE 74–85; RESP 14–22; TEMP 36.6–37.5; O2SAT 91–100
[2024-05-09] MEDS: 0.9 % Sodium Chloride Flush 3 ML SYRINGE IVFLUSH ×2 (00:10→17:00)
[2024-05-09 06:58] LABS: MANUAL DIFF FLAG NO
[2024-05-09 07:06] LABS: Basophils Percent Auto 0.2 % (0-2); Eosinophils Absolute Auto 0.2 X10*3/uL (0.0-0.4); Eosinophils Percent Auto 1.2 % (0-4); Hematocrit 30.6 % (42.0-52.0); Hemoglobin 9.4 g/dl (14.0-18.0); Imm Gran Abs Auto 0.15 X10*3/uL (0.00-0.03); Lymphocytes Absolute Auto 1.6 X10*3/uL (1.2-4.9); Lymphocytes Percent Auto 10.4 % (20-40); Mean Corpuscular HGB Conc 30.7 g/dl (31.0-36.0); Mean Corpuscular Volume 78.1 fL (80.0-98.0); Mean Platelet Volume 11.5 fL (9.4-12.4); Monocytes Absolute Auto 0.9 X10*3/uL (0.1-1.2); NRBC Pct Auto 0.2 /100WBC (0.0-0.2); Neutrophils Absolute Auto 12.6 x10*3/uL (2.0-8.3); Neutrophils Percent Auto 81.2 % (45-73); Platelet Count 328 X10*3/uL (160-400); Red Blood Count 3.92 X10*6/uL (4.60-5.80); Red Cell Distribution Width 18.7 % (11.0-16.0); White Blood Count 15.5 X10*3/uL (4.8-10.8)
[2024-05-09 07:26] LABS: Anion Gap 20 (12-20); Blood Urea Nitrogen 38 mg/dL (9-16); Calcium 9.3 mg/dL (8.4-10.2); Carbon Dioxide 24 mmol/L (22-29); Chloride 100 mmol/L (96-108); Creatinine Clr Calc Pharmacy 12.2; Estimated Glomerular Filt Rate 10; Glucose Random 189 mg/dL (60-115); Potassium 4.9 mmol/L (3.3-5.1); Sodium 139 mmol/L (135-145)
[2024-05-09 07:33] LABS: Glucose, Whole Blood 183 mg/dL (60-115)
[2024-05-09] MEDS: Fluticasone/Umeclidinium/Vilanterol 100/62.5/25 BLST.W.DEV 1 PUFF INHALE (07:57)
--- NOTE | 2024-05-09 08:54 | MHC.CM.PN ---
Addendum entered by Julia Muñoz RN 05/09/24 09:24: CM CONTACTED LILIYA TO PROVIDE UPDATE AND LILIYA PROVIDED SOME HISTORY INCLUDING PT GETS VERY CONFUSED ON PERCOCET AND NARCOTIC PAIN MEDICATION AND WHEN HE WAS HOME AFTER PT'S BKA LILIYA AND PT'S SISTER WERE GIVING PT TYLENOL D/T THE COFUSION, PT WAS ALSO PREVIOUSLY ON KIDNEY TRANSPLANT LIST HOWEVER HAS BEEN TOO SICK WHEN A KIDNEY WAS AVAILABLE AND ALYSSA RECEIVED A LETTER THAT STATED PT WAS REMOVED FROM LIST, PT IS UNAWARE. LILIYA REPORTS HE HAS SPOKEN TO KEI STAPLETON/ALT HCP AND AYLSSA/HCP ABOUT PT GOING TO STR AFTER AMP AND REPORTS PT WAS NOT DOING WELL W/THERAPY AT HOME AFTER BKS, LILIYA AWARE THAT CM SPOKE W/ALYSSA AND THAT HE WAS AGREEABLE TO STR FOR PT ONCE PT IS MEDICALLY CLEARED. Original Note: CM MET W/PT, PT'S SON/HCP AT BEDSIDE, PT AGREES TO GIVE VERBAL CONSENT FOR CM/HOSPITAL STAFF TO SPEAK W/HIS BROTHER LILIYA DE SANTIAGO [phone] PT LIVES IN [facility] AND CAN HELP EXPLAIN WHAT IS GOING ON TO PT'S SON/CAREGIVER. TASK SENT TO REGISTRATION TO ADD NUMBER TO CONTACT LIST.
--- NOTE | 2024-05-09 08:58 | HO.VASCPN ---
Subjective Subjective Date of Service: 05/09/24 Interval history: Beau is doing ok this morning. He continues to endorse a significant amount of pain in the BKA site. He has been sleeping well. He has been NPO since midnight. His son states that the pt does seem more confused but has also have been on a lot of medications and has been sleeping more. The son also has concerns for the finger wound/necrosis. Physical Exam Vital Signs: Vital Signs: Last Vital Signs Temp 98.2 F 05/09/24 08:00 Pulse 78 05/09/24 08:00 Resp 16 05/09/24 08:00 BP 188/80 H 05/09/24 08:00 Pulse Ox 95 05/09/24 08:00 O2 Del Method Room Air 05/09/24 08:00 O2 Flow Rate 2 05/08/24 19:45 Oxygen Flow Rate 2 05/01/24 16:16 BMI result Body Mass Index 29.1 Const: General: comfortable and no acute distress HEENT: Ears: hearing grossly normal bilaterally Resp: Effort & Inspection: normal respiratory effort and able to speak in complete sentences Auscultation: clear to auscultation bilaterally Cardio: Rate: regular rate Rhythm: regular rhythm Heart sounds: S1 normal heart sound present and S2 normal heart sound present Bruits: no abdominal aortic bruits, no carotid bruits, no femoral bruits and no renal bruits GI: Palpation (GI): No Abdominal aortic bruit present Neuro: Cranial nerves: Yes CN's II-XII intact bilaterally Extrem: Other: Right BKA site: not taken down this morning, will be taken down in surgery; some tape removed from the pt's skin. Progress Note: A&P Assessment and plan (1) Hx of right BKA: Status: Acute Assessment and Plan: Beau is doing ok this morning, he continues to endorse significant pain in the BKA site. He completed dialysis yesterday. His labwork was reviewed this morning. I discussed with him and his son this morning that we will be taking him at some point today, we do not have an exact time, to surgery for an AKA. I discussed complications that could occur. I answered any questions that they did have. I did not take the dressing down this morning, we will do it in the OR. I discussed with them that we will let them know when he is going for surgery as soon as we know. We will continue to monitor. If there are any questions or concerns, please do not hesitate to reach out to us. Time Spent With Patient Time: Total time managing care of this patient today ____ minutes. Procedures Date of Service Date of Service: 05/09/24 Quality Stroke Does the patient have a stroke diagnosis?: No VTE Prior VTE?: No VTE Risk Level:: Medical - moderate - high VTE Device Contraindication: N/A - Device Ordered VTE Drug Contraindication: Treatment Not Indicated
[2024-05-09] MEDS: levETIRAcetam in NaCl (iso-os) 500 MG/100 ML PIGGYBACK 400 MG IV (09:34)
[2024-05-09 10:57] LABS: Glucose, Whole Blood 213 mg/dL (60-115)
--- NOTE | 2024-05-09 12:18 | PC.NURSE ---
Son concerned with right hand middle finger. Finger appears to be black and painful per patient. Message sent to Dr. Cannon with this concern.
[2024-05-09 12:22] LABS: Glucose, Whole Blood 192 mg/dL (60-115)
--- NOTE | 2024-05-09 13:08 | P.CONAN_ITS ---
HPI - Anesthesia Eval Consult details Narrative: for right AKA. PMFSH Active Problems Active Problems: All Active Problems Preoperative cardiovascular examination (Acute) Left ventricular systolic dysfunction (LVSD) (Acute) PVD (peripheral vascular disease) (Acute) Status post creation of pericardial window (Acute) Postop check (Acute) Pericardial tamponade (Acute) Pericardial effusion (Acute) ESRD needing dialysis (Acute) Rash (Acute) Hx of right BKA (Acute) Infection of toe (Acute) Pleural effusion (Acute) Acute hypokalemia (Acute) Osteomyelitis (Acute) Somatization disorder (Acute) Trapped lung (Acute) Recurrent pleural effusion on right (Chronic) Exudative pleural effusion (Acute) Postop check (Acute) Hyponatremia (Acute) Hyperkalemia (Acute) Chronic combined systolic and diastolic CHF (congestive heart failure) (Chronic) Acute on chronic systolic and diastolic heart failure, NYHA class 3 (Chronic) Hypertension (Chronic) Past Medical History Medical History (Updated 05/07/24 @ 10:33 by Ko England MD) Acute pericardial effusion ESRD needing dialysis Right sided weakness Dehiscence of wound Peripheral arterial disease Cellulitis of right foot Hypertension Dry gangrene HFrEF (heart failure with reduced ejection fraction) ESRD (end stage renal disease) Chronic combined systolic and diastolic CHF (congestive heart failure) Chronic pericardial effusion Arthritis Asthma Restless leg syndrome Acute on chronic systolic and diastolic heart failure, NYHA class 3 Anemia ESRD (end stage renal disease) Occlusive thrombus Pulmonary edema ROBERT (obstructive sleep apnea) Type 2 diabetes mellitus Hyperlipidemia Hypertension A-V fistula ESRD on dialysis Falling Narrative: Echo from 04/2024 reviewed. Chart rev in depth. Family History Family History Father No problems noted. Mother No problems noted. 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 History of transmetatarsal amputation of foot History of surgery H/O colonoscopy Recurrent pleural effusion Pleural effusion on right (07/13/23) History of Problems with Anesthesia: No Social History Social History Household Members: Children Household Members Other:: son Housing: Apartment Are you a primary student career development specialist to a significant other at home: No Do you presently have visiting nurse or other home services: No Alcohol intake: never Comment: counts correct Patient Tobacco Use Status: Former Tobacco user Tobacco use type: Cigarette Second Hand Smoke Exposure: No Advance Directives Date on File: 04/13/23 service: No Meds Allergies Allergy/AdvReac Type Severity Reaction Status Date / Time Iodinated Contrast Media Allergy Severe Facial Verified 05/01/24 16:21 [Contrast Dye] Swelling Active Medications: Current Medications Acetaminophen (Acetaminophen 325 Mg Tablet) 650 mg PO Q6H PRN PRN Reason: Pain, Mild 1-3,fever,headache Last Admin: 05/07/24 09:07 Dose: 650 mg Albuterol Sulfate (Albuterol Sulfate 90 Mcg 8 Gm Inhaler) 2 puff INHALE RQ4H PRN PRN Reason: Shortness Of Breath Albuterol/Ipratropium (Albuterol/Iprat 2.5/0.5mg 3 Ml Ampul.Neb) 3 ml INHALE RQID PRN PRN Reason: Wheezing Allopurinol (Allopurinol 100 Mg Tablet) 100 mg PO MOWEFR@1600 [facility] Last Admin: 05/08/24 17:13 Dose: 100 mg Atorvastatin Calcium (Atorvastatin Calcium 40 Mg Tablet) 40 mg PO MOWEFR@1600 [facility] Last Admin: 05/08/24 17:13 Dose: 40 mg Atorvastatin Calcium (Atorvastatin Calcium 40 Mg Tablet) 40 mg PO SUTUTHSA@0900 [facility] Last Admin: 05/09/24 09:26 Dose: Not Given Bisacodyl (Bisacodyl 10 Mg Supp.Rect) 10 mg NV DAILY PRN PRN Reason: Constipation Calcium Carbonate (Calcium Carbonate 750 Mg Tab.Chew) 750 mg PO Q4H PRN PRN Reason: Heartburn Ceftriaxone Sodium (Ceftriaxone Sodium 1 Gm Vial) 1 gm IVPUSH Q24H [facility] Last Admin: 05/08/24 23:39 Dose: 1 gm Dextrose (Dextrose 50 % 25 Gm/50 Ml Syringe) 25 gm IVPUSH Q15M PRN; Protocol PRN Reason: per Hypoglycemia Standing Ord. Last Admin: 05/07/24 07:05 Dose: 25 gm Fluticasone/Umeclidinium/Vilanterol (Fluticasone/Umeclidinium/Vilanterol 100/62.5/25 Blst.W.Dev) 1 puff INHALE RDAILY [facility] Last Admin: 05/09/24 07:57 Dose: 1 puff Glucose (Glucose Gel 15 Gm Gel..Gram.) 15 gm PO Q15M PRN; Protocol PRN Reason: per Hypoglycemia Standing Ord. Heparin Sodium (Porcine) (Heparin Sodium,Porcine 5,000 Unit/Ml Vial) 5,000 unit SUBCUT Q8H [facility] Last Admin: 05/09/24 12:22 Dose: Not Given Hydralazine HCl (Hydralazine Hcl 25 Mg Tablet) 25 mg PO QID [facility]; Protocol Last Admin: 05/09/24 12:22 Dose: Not Given Hydromorphone HCl (Hydromorphone Hcl 2 Mg Tablet) 2 mg PO Q6H PRN PRN Reason: Pain, Severe (Pain Scale 7-10) Vancomycin HCl 500 mg/ Sodium (Chloride) 110 mls @ 110 mls/hr IV Q24H [facility] Insulin Glargine (Insulin Glargine,Hum.Rec.Anlog 100 Unit/Ml 10 Ml Vial) 18 unit SUBCUT BEDTIME [facility] Last Admin: 05/08/24 23:38 Dose: Not Given Insulin Human Lispro (Insulin Lispro 100 Unit/Ml 3 Ml Vial) 0 unit SUBCUT QIDACHS [facility]; Protocol Last Admin: 05/09/24 11:35 Dose: Not Given Levetiracetam (Levetiracetam 500 Mg Tablet) 500 mg PO BID [facility] Last Admin: 05/09/24 09:27 Dose: Not Given Magnesium Hydroxide (Milk Of Magnesia 30 Ml Oral.Susp) 30 ml PO DAILY PRN PRN Reason: Constipation Melatonin (Melatonin 3 Mg Tablet) 6 mg PO BEDTIME PRN PRN Reason: Insomnia Last Admin: 05/04/24 22:08 Dose: 6 mg Naloxone HCl (Naloxone Hcl 0.4 Mg/Ml Vial) 0.04 mg IVPUSH Q5M PRN PRN Reason: Respiratory Rate < 10 Last Admin: 05/07/24 07:37 Dose: 0.04 mg Omeprazole (Omeprazole 20 Mg Capsule.Dr) 20 mg PO DAILY@0630 [facility] Last Admin: 05/09/24 05:00 Dose: Not Given Ondansetron HCl (Ondansetron Hcl 4 Mg/2 Ml Vial) 4 mg IVPUSH Q8H PRN PRN Reason: Nausea and Vomiting Last Admin: 05/04/24 14:05 Dose: 4 mg Pharmacy Consult (Consult Rx Vancomycin Dosing) 1 each MISCELLANE DAILY PRN PRN Reason: Consult order Polyethylene Glycol (Polyethylene Glycol 3350 17 Gm Powd.Pack) 17 gm PO DAILY [facility] Last Admin: 05/09/24 09:27 Dose: Not Given Senna (Sennosides 8.6 Mg Tablet) 8.6 mg PO DAILY PRN PRN Reason: Constipation Sevelamer Carbonate (Sevelamer Carbonate Tablet 800 Mg Tablet) 1,600 mg PO TIDWM [facility] Last Admin: 05/09/24 12:22 Dose: Not Given Sodium Chloride (0.9 % Sodium Chloride Flush 3 Ml Syringe) 3 ml IVFLUSH QSHIFT [facility] Last Admin: 05/09/24 09:28 Dose: Not Given Zinc Acetate/Diphenhydramine (Diphenhydramine Hcl 2 % Cream 28 Gm Tube) 1 appl TOPICAL TID PRN; Protocol PRN Reason: rash Last Admin: 05/08/24 23:42 Dose: 1 appl Home Medications ?Medication ?Instructions ?Recorded ?Confirmed ?Last Taken ?Type albuterol sulfate 90 mcg/actuation 2 puff inhalation Q4H PRN 04/19/22 05/01/24 03/05/24 History aerosol inhaler Shortness Of Breath allopurinol 100 mg tablet 100 mg PO MOWEFR@1600 04/19/22 05/01/24 03/18/24 History atorvastatin 40 mg tablet 40 mg PO SUTUTHSA@0904/19/22 05/01/24 03/19/24 History doxazosin 4 mg tablet 4 mg PO BEDTIME 04/19/22 05/01/24 03/18/24 History furosemide 80 mg tablet 80 mg PO SUTUTHSA@0900 04/19/22 05/01/24 03/19/24 History ipratropium 0.5 mg-albuterol 3 mg 3 ml inhalation QID PRN Wheezing 04/19/22 05/01/24 Unknown History (2.5 mg base)/3 mL nebulization soln omeprazole 20 mg capsule,delayed 20 mg PO DAILY@0630 04/19/22 05/01/24 03/19/24 History release insulin lispro 100 unit/mL 1 sliding scale dose subcut TIDAC 04/10/23 05/01/24 03/18/24 History subcutaneous pen aspirin 81 mg tablet,delayed 81 mg PO SUTUTHSA@06/20/23 05/01/24 03/19/24 History release pregabalin 75 mg capsule 75 mg PO SUTUTHSA@,15,21 06/20/23 05/01/24 03/19/24 History hydralazine 25 mg tablet 25 mg PO SUTUTHSA@,15,01/24/24 05/01/24 03/19/24 History sucroferric oxyhydroxide 500 mg 500 mg PO TID 01/24/24 05/01/24 03/19/24 History chewable tablet (Velphoro) acetaminophen 325 mg tablet 650 mg PO Q4H PRN PAIN/FEVER 04/05/24 05/01/24 Unknown History aspirin 81 mg tablet,delayed 81 mg PO MOWEFR@159904/05/24 05/01/24 Unknown History release atorvastatin 40 mg tablet 40 mg PO MOWEFR@159904/05/24 05/01/24 Unknown History bisacodyl 10 mg rectal suppository 10 mg NV DAILY PRN Constipation 04/05/24 05/01/24 Unknown History (Dulcolax (bisacodyl)) carvedilol 6.25 mg tablet 6.25 mg PO BID 04/05/24 05/01/24 Unknown History fluticasone fur. 100 mcg-umeclid 1 inh inhalation DAILY 04/05/24 05/01/24 Unknown History 62.5 mcg-vilant 25 mcg inhalat.powder (Trelegy Ellipta) furosemide 80 mg tablet 80 mg PO MOWEFR@159904/05/24 05/01/24 Unknown History hydralazine 25 mg tablet 25 mg PO MOWEFR@159904/05/24 05/01/24 Unknown History losartan 25 mg tablet 25 mg PO MOWEFR@159904/05/24 05/01/24 Unknown History losartan 25 mg tablet 25 mg PO SUTUTHSA@0900 04/05/24 05/01/24 Unknown History oxycodone 5 mg tablet 5 mg PO Q6H PRN pain 04/05/24 05/01/24 Unknown History pregabalin 75 mg capsule 75 mg PO MOWEFR@1600 04/05/24 05/01/24 Unknown History sennosides 8.6 mg tablet (senna) 8.6 mg PO DAILY PRN Constipation 04/05/24 05/01/24 Unknown History insulin glargine 100 unit/mL (3 22 unit subcut BEDTIME 05/01/24 05/01/24 Unknown History mL) subcutaneous pen (Lantus Solostar U-100 Insulin) Exam Height,Weight and Vital Signs: Height 5 ft 5 in Weight 79.379 kg Last Vital Signs Temp 98.2 F 05/09/24 12:13 Pulse 74 05/09/24 12:13 Resp 22 H 05/09/24 12:13 BP 190/84 H 05/09/24 12:13 Pulse Ox 99 05/09/24 12:13 O2 Del Method Nasal Cannula 05/09/24 12:13 O2 Flow Rate 2 05/09/24 12:13 Oxygen Flow Rate 2 05/01/24 16:16 Pertinent Lab Results Pertinent Lab Results: Laboratory Tests 05/01/24 05/01/24 05/02/24 16:51 22:16 03:53 WBC 8.7 RBC 3.73 L Hgb 9.2 L Hct 28.5 L MCV 76.4 L MCH 24.7 L MCHC 32.3 RDW 18.1 H Plt Count 355 MPV 11.8 Immature Gran % (Auto) 1.0 H Neut % (Auto) 84.5 H Lymph % (Auto) 8.1 L [place] % (Auto) 5.3 Eos % (Auto) 0.9 Baso % (Auto) 0.2 Lymph # (Auto) 0.7 L [place] # (Auto) 0.5 Eos # (Auto) 0.1 Baso # (Auto) 0.0 Abs Immat Gran (auto) 0.09 H Absolute Neuts (auto) 7.4 Absolute Nucleated RBC 0.000 Nucleated RBC % (auto) 0.0 ESR 92 H PT 15.2 H INR 1.3 H VBG pH VBG pCO2 VBG pO2 VBG HCO3 VBG O2 Saturation VBG Base Excess Sodium 136 Potassium 4.3 Chloride 96 Carbon Dioxide 26 Anion Gap 18 BUN 59 H Creatinine 5.66 H* Estim Creat Clear Calc 12.1 Estimated GFR 10 POC Glucose 335 H 53 L* Random Glucose 424 H* Lactic Acid 1.2 Calcium 8.5 Phosphorus Magnesium Total Bilirubin 0.4 AST 29 ALT 19 Alkaline Phosphatase 232 H C-Reactive Protein 19.06 H Total Protein 7.7 Albumin 3.1 L Lipase 55 TSH 0.61 Pericard pH Pericard WBC Pericard RBC Pericard Neutrophils Pericard Lymphocytes Pericard Monocytes Pericard Total Protein Pericardial Albumin Pericardial Glucose Pericardial Amylase Random Vancomycin Autoimmune Screen Rheumatoid Factor Proteinase 3 (PR3) Ab Myeloperoxidase Ab CUSTOMER SUPPORT AGENT Antibody Tot Complement (CH50) Respiratory Panel Baumann Adenovirus (Rapid PCR) B.pert (TEM-PCR) B.parapertussis DNA PCR C. pneumoniae DNA (PCR) Coronavirus OC43 (PCR) Coronavirus HKU1 (PCR) Coronavirus 229E (PCR) Coronavirus NL63 (PCR) Hepatitis A IgM Ab Hep Bs Antigen Hep Bs Antibody Hep B Core Total Ab Hepatitis C Ab (EIA) HIV 1&2 Ab/P24 Ag 4thGn Human Metapneumovir PCR Influenza A (RT-PCR) Influenza B (RT-PCR) M. pneumoniae (PCR) Parainfluenza 1 (PCR) Parainfluenza 2 (PCR) Parainfluenza 3 (PCR) Parainfluenza 4 (PCR) RSV (PCR) Entero/Rhino (PCR) SARS-CoV-2 RNA (RT-PCR) Blood Type Antibody Screen 05/02/24 05/02/24 05/02/24 04:16 04:21 09:46 WBC 9.8 RBC 3.46 L Hgb 8.2 L Hct 26.6 L MCV 76.9 L MCH 23.7 L MCHC 30.8 L RDW 18.0 H Plt Count 304 MPV 12.0 Immature Gran % (Auto) Neut % (Auto) Lymph % (Auto) [place] % (Auto) Eos % (Auto) Baso % (Auto) Lymph # (Auto) [place] # (Auto) Eos # (Auto) Baso # (Auto) Abs Immat Gran (auto) Absolute Neuts (auto) Absolute Nucleated RBC 0.000 Nucleated RBC % (auto) 0.0 ESR PT INR VBG pH VBG pCO2 VBG pO2 VBG HCO3 VBG O2 Saturation VBG Base Excess Sodium 139 Potassium 4.3 Chloride 99 Carbon Dioxide 23 Anion Gap 21 H BUN 64 H Creatinine 6.20 H* Estim Creat Clear Calc 11.0 Estimated GFR 9 POC Glucose 148 H 95 Random Glucose 149 H Lactic Acid Calcium 8.2 L Phosphorus Magnesium Total Bilirubin 0.5 AST 23 ALT 11 Alkaline Phosphatase 197 H C-Reactive Protein Total Protein 7.1 Albumin 2.9 L Lipase TSH Pericard pH Pericard WBC Pericard RBC Pericard Neutrophils Pericard Lymphocytes Pericard Monocytes Pericard Total Protein Pericardial Albumin Pericardial Glucose Pericardial Amylase Random Vancomycin Autoimmune Screen Rheumatoid Factor Proteinase 3 (PR3) Ab <1.0 Myeloperoxidase Ab <1.0 CUSTOMER SUPPORT AGENT Antibody Tot Complement (CH50) Respiratory Panel Baumann Adenovirus (Rapid PCR) B.pert (TEM-PCR) B.parapertussis DNA PCR C. pneumoniae DNA (PCR) Coronavirus OC43 (PCR) Coronavirus HKU1 (PCR) Coronavirus 229E (PCR) Coronavirus NL63 (PCR) Hepatitis A IgM Ab Hep Bs Antigen Hep Bs Antibody Hep B Core Total Ab Hepatitis C Ab (EIA) HIV 1&2 Ab/P24 Ag 4thGn Human Metapneumovir PCR Influenza A (RT-PCR) Influenza B (RT-PCR) M. pneumoniae (PCR) Parainfluenza 1 (PCR) Parainfluenza 2 (PCR) Parainfluenza 3 (PCR) Parainfluenza 4 (PCR) RSV (PCR) Entero/Rhino (PCR) SARS-CoV-2 RNA (RT-PCR) Blood Type Antibody Screen 05/02/24 05/02/24 05/02/24 15:14 15:51 18:48 WBC RBC Hgb Hct MCV MCH MCHC RDW Plt Count MPV Immature Gran % (Auto) Neut % (Auto) Lymph % (Auto) [place] % (Auto) Eos % (Auto) Baso % (Auto) Lymph # (Auto) [place] # (Auto) Eos # (Auto) Baso # (Auto) Abs Immat Gran (auto) Absolute Neuts (auto) Absolute Nucleated RBC Nucleated RBC % (auto) ESR PT INR VBG pH VBG pCO2 VBG pO2 VBG HCO3 VBG O2 Saturation VBG Base Excess Sodium Potassium Chloride Carbon Dioxide Anion Gap BUN Creatinine Estim Creat Clear Calc Estimated GFR POC Glucose 72 112 Random Glucose Lactic Acid Calcium Phosphorus Magnesium Total Bilirubin AST ALT Alkaline Phosphatase C-Reactive Protein Total Protein Albumin Lipase TSH Pericard pH Pericard WBC Per[place]ard RBC Pericard Neutrophils Pericard Lymphocytes Pericard Monocytes Pericard Total Protein Pericardial Albumin Pericardial Glucose Pericardial Amylase Random Vancomycin Autoimmune Screen NEGATIVE Rheumatoid Factor < 13.0 Proteinase 3 (PR3) Ab Myeloperoxidase Ab CUSTOMER SUPPORT AGENT Antibody <1.0 NEG Tot Complement (CH50) >60 H Respiratory Panel Baumann Adenovirus (Rapid PCR) B.pert (TEM-PCR) B.parapertussis DNA PCR C. pneumoniae DNA (PCR) Coronavirus OC43 (PCR) Coronavirus HKU1 (PCR) Coronavirus 229E (PCR) Coronavirus NL63 (PCR) Hepatitis A IgM Ab Nonreactive Hep Bs Antigen Negative Hep Bs Antibody REACTIVE Hep B Core Total Ab Nonreactive Hepatitis C Ab (EIA) Nonreactive HIV 1&2 Ab/P24 Ag 4thGn Nonreactive Human Metapneumovir PCR Influenza A (RT-PCR) Influenza B (RT-PCR) M. pneumoniae (PCR) Parainfluenza 1 (PCR) Parainfluenza 2 (PCR) Parainfluenza 3 (PCR) Parainfluenza 4 (PCR) RSV (PCR) Entero/Rhino (PCR) SARS-CoV-2 RNA (RT-PCR) Blood Type Antibody Screen 05/02/24 05/03/24 05/03/24 21:13 01:18 04:50 WBC RBC Hgb Hct MCV MCH MCHC RDW Plt Count MPV Immature Gran % (Auto) Neut % (Auto) Lymph % (Auto) [place] % (Auto) Eos % (Auto) Baso % (Auto) Lymph # (Auto) [place] # (Auto) Eos # (Auto) Baso # (Auto) Abs Immat Gran (auto) Absolute Neuts (auto) Absolute Nucleated RBC Nucleated RBC % (auto) ESR PT INR VBG pH VBG pCO2 VBG pO2 VBG HCO3 VBG O2 Saturation VBG Base Excess Sodium Potassium Chloride Carbon Dioxide Anion Gap BUN Creatinine Estim Creat Clear Calc Estimated GFR POC Glucose 237 H 223 H 206 H Random Glucose Lactic Acid Calcium Phosphorus Magnesium Total Bilirubin AST ALT Alkaline Phosphatase C-Reactive Protein Total Protein Albumin Lipase TSH [place]ard pH Pericard WBC Pericard RBC Pericard Neutrophils Pericard Lymphocytes Pericard Monocytes Pericard Total Protein Pericardial Albumin Pericardial Glucose Pericardial Amylase Random Vancomycin Autoimmune Screen Rheumatoid Factor Proteinase 3 (PR3) Ab Myeloperoxidase Ab C[employer]OMER SUPPORT AGENT Antibody Tot Complement (CH50) Respiratory Panel Baumann Adenovirus (Rapid PCR) B.pert (TEM-PCR) B.parapertussis DNA PCR C. pneumoniae DNA (PCR) Coronavirus OC43 (PCR) Coronavirus HKU1 (PCR) Coronavirus 229E (PCR) Coronavirus NL63 (PCR) Hepatitis A IgM Ab Hep Bs Antigen Hep Bs Antibody Hep B Core Total Ab Hepatitis C Ab (EIA) HIV 1&2 Ab/P24 Ag 4thGn Human Metapneumovir PCR Influenza A (RT-PCR) Influenza B (RT-PCR) M. pneumoniae (PCR) Parainfluenza 1 (PCR) Parainfluenza 2 (PCR) Parainfluenza 3 (PCR) Parainfluenza 4 (PCR) RSV (PCR) Entero/Rhino (PCR) SARS-CoV-2 RNA (RT-PCR) Blood Type Antibody Screen 05/03/24 05/03/24 05/03/24 06:13 07:09 10:23 WBC 10.2 RBC 3.43 L Hgb 8.2 L Hct 26.3 L MCV 76.7 L MCH 23.9 L MCHC 31.2 RDW 18.2 H Plt Count 357 MPV 12.4 Immature Gran % (Auto) 0.9 H Neut % (Auto) 86.7 H Lymph % (Auto) 7.8 L [place] % (Auto) 4.5 Eos % (Auto) 0.0 Baso % (Auto) 0.1 Lymph # (Auto) 0.8 L [place] # (Auto) 0.5 Eos # (Auto) 0.0 Baso # (Auto) 0.0 Abs Immat Gran (auto) 0.09 H Absolute Neuts (auto) 8.8 H Absolute Nucleated RBC 0.000 Nucleated RBC % (auto) 0.0 ESR PT INR VBG pH VBG pCO2 VBG pO2 VBG HCO3 VBG O2 Saturation VBG Base Excess Sodium 137 Potassium 5.2 H D Chloride 97 Carbon Dioxide 20 L Anion Gap 25 H BUN 85 H Creatinine 7.65 H* Estim Creat Clear Calc 8.9 Estimated GFR 7 POC Glucose 225 H Random Glucose 238 H Lactic Acid Calcium 8.2 L Phosphorus Magnesium Total Bilirubin AST ALT Alkaline Phosphatase C-Reactive Protein Total Protein Albumin Lipase TSH Pericard pH Pericard WBC Pericard RBC Pericard Neutrophils Pericard Lymphocytes Pericard Monocytes Pericard Total Protein Pericardial Albumin Pericardial Glucose Pericardial Amylase Random Vancomycin Autoimmune Screen Rheumatoid Factor Proteinase 3 (PR3) Ab Myeloperoxidase Ab CUSTOMER SUPPORT AGENT Antibody Tot Complement (CH50) Respiratory Panel Baumann Adenovirus (Rapid PCR) B.pert (TEM-PCR) B.parapertussis DNA PCR C. pneumoniae DNA (PCR) Coronavirus OC43 (PCR) Coronavirus HKU1 (PCR) Coronavirus 229E (PCR) Coronavirus NL63 (PCR) Hepatitis A IgM Ab Hep Bs Antigen Hep Bs Antibody Hep B Core Total Ab Hepatitis C Ab (EIA) HIV 1&2 Ab/P24 Ag 4thGn Human Metapneumovir PCR Influenza A (RT-PCR) Influenza B (RT-PCR) M. pneumoniae (PCR) Parainfluenza 1 (PCR) Parainfluenza 2 (PCR) Parainfluenza 3 (PCR) Parainfluenza 4 (PCR) RSV (PCR) Entero/Rhino (PCR) SARS-CoV-2 RNA (RT-PCR) Blood Type A Positive Antibody Screen NEGATIVE 05/03/24 05/03/24 05/03/24 13:25 18:01 19:10 WBC RBC Hgb Hct MCV MCH MCHC RDW Plt Count MPV Immature Gran % (Auto) Neut % (Auto) Lymph % (Auto) [place] % (Auto) Eos % (Auto) Baso % (Auto) Lymph # (Auto) [place] # (Auto) Eos # (Auto) Baso # (Auto) Abs Immat Gran (auto) Absolute Neuts (auto) Absolute Nucleated RBC Nucleated RBC % (auto) ESR PT INR VBG pH VBG pCO2 VBG pO2 VBG HCO3 VBG O2 Saturation VBG Base Excess Sodium Potassium Chloride Carbon Dioxide Anion Gap BUN Creatinine Estim Creat Clear Calc Estimated GFR POC Glucose 145 H 136 H 129 H Random Glucose Lactic Acid Calcium Phosphorus Magnesium Total Bilirubin AST ALT Alkaline Phosphatase C-Reactive Protein Total Protein Albumin Lipase TSH [place] pH Pericard WBC Pericard RBC Pericard Neutrophils Pericard Lymphocytes Pericard Monocytes Pericard Total Protein Pericardial Albumin Pericardial Glucose Pericardial Amylase Random Vancomycin Autoimmune Screen Rheumatoid Factor Proteinase 3 (PR3) Ab Myeloperoxidase Ab C[employer]OMER SUPPORT AGENT Antibody Tot Complement (CH50) Respiratory Panel Baumann Adenovirus (Rapid PCR) B.pert (TEM-PCR) B.parapertussis DNA PCR C. pneumoniae DNA (PCR) Coronavirus OC43 (PCR) Coronavirus HKU1 (PCR) Coronavirus 229E (PCR) Coronavirus NL63 (PCR) Hepatitis A IgM Ab Hep Bs Antigen Hep Bs Antibody Hep B Core Total Ab Hepatitis C Ab (EIA) HIV 1&2 Ab/P24 Ag 4thGn Human Metapneumovir PCR Influenza A (RT-PCR) Influenza B (RT-PCR) M. pneumoniae (PCR) Parainfluenza 1 (PCR) Parainfluenza 2 (PCR) Parainfluenza 3 (PCR) Parainfluenza 4 (PCR) RSV (PCR) Entero/Rhino (PCR) SARS-CoV-2 RNA (RT-PCR) Blood Type Antibody Screen 05/03/24 05/03/24 05/03/24 19:11 19:17 21:28 WBC 11.5 H RBC 3.44 L Hgb 8.2 L Hct 26.3 L MCV 76.5 L MCH 23.8 L MCHC 31.2 RDW 18.4 H Plt Count 375 MPV 12.6 H Immature Gran % (Auto) 1.0 H Neut % (Auto) 81.2 H Lymph % (Auto) 11.7 L [place] % (Auto) 5.8 Eos % (Auto) 0.2 Baso % (Auto) 0.1 Lymph # (Auto) 1.4 [place] # (Auto) 0.7 Eos # (Auto) 0.0 Baso # (Auto) 0.0 Abs Immat Gran (auto) 0.12 H Absolute Neuts (auto) 9.4 H Absolute Nucleated RBC 0.020 H Nucleated RBC % (auto) 0.2 ESR PT INR VBG pH 7.46 H VBG pCO2 33 VBG pO2 111 VBG HCO3 24 VBG O2 Saturation 99.0 VBG Base Excess 1.1 Sodium 138 Potassium 5.0 Chloride 99 Carbon Dioxide 22 Anion Gap 22 H BUN 53 H Creatinine 5.49 H* Estim Creat Clear Calc 12.5 Estimated GFR 10 POC Glucose 159 H Random Glucose 133 H Lactic Acid 1.6 Calcium 7.9 L Phosphorus Magnesium Total Bilirubin AST ALT Alkaline Phosphatase C-Reactive Protein Total Protein Albumin 2.7 L Lipase TSH Pericard pH Pericard WBC Per[place]ard RBC Pericard Neutrophils Pericard Lymphocytes Pericard Monocytes Pericard Total Protein Pericardial Albumin Pericardial Glucose Pericardial Amylase Random Vancomycin 19.9 Autoimmune Screen Rheumatoid Factor Proteinase 3 (PR3) Ab Myeloperoxidase Ab C[employer]OMER SUPPORT AGENT Antibody Tot Complement (CH50) Respiratory Panel Baumann Adenovirus (Rapid PCR) B.pert (TEM-PCR) B.parapertussis DNA PCR C. pneumoniae DNA (PCR) Coronavirus OC43 (PCR) Coronavirus HKU1 (PCR) Coronavirus 229E (PCR) Coronavirus NL63 (PCR) Hepatitis A IgM Ab Hep Bs Antigen Hep Bs Antibody Hep B Core Total Ab Hepatitis C Ab (EIA) HIV 1&2 Ab/P24 Ag 4thGn Human Metapneumovir PCR Influenza A (RT-PCR) Influenza B (RT-PCR) M. pneumoniae (PCR) Parainfluenza 1 (PCR) Parainfluenza 2 (PCR) Parainfluenza 3 (PCR) Parainfluenza 4 (PCR) RSV (PCR) Entero/Rhino (PCR) SARS-CoV-2 RNA (RT-PCR) Blood Type Antibody Screen 05/04/24 05/04/24 05/04/24 05:50 07:18 11:33 WBC 11.3 H RBC 3.24 L Hgb 7.9 L Hct 24.9 L MCV 76.9 L MCH 24.4 L MCHC 31.7 RDW 18.4 H Plt Count 353 MPV 11.7 Immature Gran % (Auto) 1.3 H Neut % (Auto) 82.9 H Lymph % (Auto) 8.7 L [place] % (Auto) 6.9 Eos % (Auto) 0.2 Baso % (Auto) 0.0 Lymph # (Auto) 1.0 L [place] # (Auto) 0.8 Eos # (Auto) 0.0 Baso # (Auto) 0.0 Abs Immat Gran (auto) 0.15 H Absolute Neuts (auto) 9.4 H Absolute Nucleated RBC 0.050 H Nucleated RBC % (auto) 0.4 H ESR PT INR VBG pH 7.37 VBG pCO2 45 VBG pO2 73 VBG HCO3 26 VBG O2 Saturation 92.0 VBG Base Excess 1.2 Sodium 138 Potassium 4.6 Chloride 99 Carbon Dioxide 23 Anion Gap 21 H BUN 60 H Creatinine 6.30 H* Estim Creat Clear Calc 10.8 Estimated GFR 9 POC Glucose 179 H 115 Random Glucose 189 H Lactic Acid Calcium 8.1 L Phosphorus 7.9 H Magnesium 1.9 Total Bilirubin 0.4 AST 29 ALT < 6 Alkaline Phosphatase 145 H C-Reactive Protein Total Protein 6.9 Albumin 3.4 L Lipase TSH Pericard pH Pericard WBC Pericard RBC Pericard Neutrophils Pericard Lymphocytes Pericard Monocytes Pericard Total Protein Pericardial Albumin Pericardial Glucose Pericardial Amylase Random Vancomycin Autoimmune Screen Rheumatoid Factor Proteinase 3 (PR3) Ab Myeloperoxidase Ab C[employer]OMER SUPPORT AGENT Antibody Tot Complement (CH50) Respiratory Panel Baumann Adenovirus (Rapid PCR) B.pert (TEM-PCR) B.parapertussis DNA PCR C. pneumoniae DNA (PCR) Coronavirus OC43 (PCR) Coronavirus HKU1 (PCR) Coronavirus 229E (PCR) Coronavirus NL63 (PCR) Hepatitis A IgM Ab Hep Bs Antigen Hep Bs Antibody Hep B Core Total Ab Hepatitis C Ab (EIA) HIV 1&2 Ab/P24 Ag 4thGn Human Metapneumovir PCR Influenza A (RT-PCR) Influenza B (RT-PCR) M. pneumoniae (PCR) Parainfluenza 1 (PCR) Parainfluenza 2 (PCR) Parainfluenza 3 (PCR) Parainfluenza 4 (PCR) RSV (PCR) Entero/Rhino (PCR) SARS-CoV-2 RNA (RT-PCR) Blood Type Antibody Screen 05/04/24 05/04/24 05/05/24 15:33 20:52 06:54 WBC 14.6 H RBC 3.36 L Hgb 8.1 L Hct 26.4 L MCV 78.6 L MCH 24.1 L MCHC 30.7 L RDW 18.6 H Plt Count 367 MPV 12.5 H Immature Gran % (Auto) 1.3 H Neut % (Auto) 81.3 H Lymph % (Auto) 10.1 L [place] % (Auto) 6.6 Eos % (Auto) 0.6 Baso % (Auto) 0.1 Lymph # (Auto) 1.5 [place] # (Auto) 1.0 Eos # (Auto) 0.1 Baso # (Auto) 0.0 Abs Immat Gran (auto) 0.19 H Absolute Neuts (auto) 11.9 H Absolute Nucleated RBC 0.080 H Nucleated RBC % (auto) 0.5 H ESR PT INR VBG pH VBG pCO2 VBG pO2 VBG HCO3 VBG O2 Saturation VBG Base Excess Sodium 141 Potassium 4.5 Chloride 101 Carbon Dioxide 22 Anion Gap 23 H BUN 77 H Creatinine 8.42 H* Estim Creat Clear Calc 8.1 Estimated GFR 6 POC Glucose 144 H 202 H Random Glucose 91 Lactic Acid Calcium 8.4 Phosphorus 8.6 H Magnesium 1.9 Total Bilirubin AST ALT Alkaline Phosphatase C-Reactive Protein Total Protein Albumin 3.5 Lipase TSH [place] pH [place] WBC [place] RBC [place] Neutrophils [place] Lymphocytes [place]ard Monocytes [place] Total Protein Pericardial Albumin Pericardial Glucose Pericardial Amylase Random Vancomycin Autoimmune Screen Rheumatoid Factor Proteinase 3 (PR3) Ab Myeloperoxidase Ab [employer] Antibody Tot Complement (CH50) Respiratory Panel Baumann Adenovirus (Rapid PCR) B.pert (TEM-PCR) B.parapertussis DNA PCR C. pneumoniae DNA (PCR) Coronavirus OC43 (PCR) Coronavirus HKU1 (PCR) Coronavirus 229E (PCR) Coronavirus NL63 (PCR) Hepatitis A IgM Ab Hep Bs Antigen Hep Bs Antibody Hep B Core Total Ab Hepatitis C Ab (EIA) HIV 1&2 Ab/P24 Ag 4thGn Human Metapneumovir PCR Influenza A (RT-PCR) Influenza B (RT-PCR) M. pneumoniae (PCR) Parainfluenza 1 (PCR) Parainfluenza 2 (PCR) Parainfluenza 3 (PCR) Parainfluenza 4 (PCR) RSV (PCR) Entero/Rhino (PCR) SARS-CoV-2 RNA (RT-PCR) Blood Type Antibody Screen 05/05/24 05/05/24 05/05/24 07:21 08:49 10:45 WBC RBC Hgb Hct MCV MCH MCHC RDW Plt Count MPV Immature Gran % (Auto) Neut % (Auto) Lymph % (Auto) [place] % (Auto) Eos % (Auto) Baso % (Auto) Lymph # (Auto) [place] # (Auto) Eos # (Auto) Baso # (Auto) Abs Immat Gran (auto) Absolute Neuts (auto) Absolute Nucleated RBC Nucleated RBC % (auto) ESR PT INR VBG pH 7.46 H VBG pCO2 41 VBG pO2 130 VBG HCO3 30 H VBG O2 Saturation 100.0 VBG Base Excess 5.8 Sodium Potassium Chloride Carbon Dioxide Anion Gap BUN Creatinine Estim Creat Clear Calc Estimated GFR POC Glucose 86 Random Glucose Lactic Acid Calcium Phosphorus Magnesium Total Bilirubin AST ALT Alkaline Phosphatase C-Reactive Protein Total Protein Albumin Lipase TSH [place] pH 7.62 [place] WBC 9750 [place] RBC 702423 [place] Neutrophils 95 [place] Lymphocytes 1 [place] Monocytes 4 [place] Total Protein 5.4 Pericardial Albumin 3.2 Pericardial Glucose < 2 Pericardial Amylase 25 Random Vancomycin Autoimmune Screen Rheumatoid Factor Proteinase 3 (PR3) Ab Myeloperoxidase Ab [employer] Antibody Tot Complement (CH50) Respiratory Panel Baumann See Note Adenovirus (Rapid PCR) Not Detected B.pert (TEM-PCR) Not Detected B.parapertussis DNA PCR Not Detected C. pneumoniae DNA (PCR) Not Detected Coronavirus OC43 (PCR) Not Detected Coronavirus HKU1 (PCR) Not Detected Coronavirus 229E (PCR) Not Detected Coronavirus NL63 (PCR) Not Detected Hepatitis A IgM Ab Hep Bs Antigen Hep Bs Antibody Hep B Core Total Ab Hepatitis C Ab (EIA) HIV 1&2 Ab/P24 Ag 4thGn Human Metapneumovir PCR Not Detected Influenza A (RT-PCR) Not Detected Influenza B (RT-PCR) Not Detected M. pneumoniae (PCR) Not Detected Parainfluenza 1 (PCR) Not Detected Parainfluenza 2 (PCR) Not Detected Parainfluenza 3 (PCR) Not Detected Parainfluenza 4 (PCR) Not Detected RSV (PCR) Not Detected Entero/Rhino (PCR) Not Detected SARS-CoV-2 RNA (RT-PCR) Not Detected Blood Type Antibody Screen 05/05/24 05/05/24 05/05/24 11:23 16:20 20:39 WBC RBC Hgb Hct MCV MCH MCHC RDW Plt Count MPV Immature Gran % (Auto) Neut % (Auto) Lymph % (Auto) [place] % (Auto) Eos % (Auto) Baso % (Auto) Lymph # (Auto) [place] # (Auto) Eos # (Auto) Baso # (Auto) Abs Immat Gran (auto) Absolute Neuts (auto) Absolute Nucleated RBC Nucleated RBC % (auto) ESR PT INR VBG pH VBG pCO2 VBG pO2 VBG HCO3 VBG O2 Saturation VBG Base Excess Sodium Potassium Chloride Carbon Dioxide Anion Gap BUN Creatinine Estim Creat Clear Calc Estimated GFR POC Glucose 135 H 230 H 179 H Random Glucose Lactic Acid Calcium Phosphorus Magnesium Total Bilirubin AST ALT Alkaline Phosphatase C-Reactive Protein Total Protein Albumin Lipase TSH [place] pH [place]ard WBC [place] RBC [place] Neutrophils Per[place]ard Lymphocytes Pericard Monocytes [place] Total Protein Pericardial Albumin Pericardial Glucose Pericardial Amylase Random Vancomycin Autoimmune Screen Rheumatoid Factor Proteinase 3 (PR3) Ab Myeloperoxidase Ab [employer] Antibody Tot Complement (CH50) Respiratory Panel Baumann Adenovirus (Rapid PCR) B.pert (TEM-PCR) B.parapertussis DNA PCR C. pneumoniae DNA (PCR) Coronavirus OC43 (PCR) Coronavirus HKU1 (PCR) Coronavirus 229E (PCR) Coronavirus NL63 (PCR) Hepatitis A IgM Ab Hep Bs Antigen Hep Bs Antibody Hep B Core Total Ab Hepatitis C Ab (EIA) HIV 1&2 Ab/P24 Ag 4thGn Human Metapneumovir PCR Influenza A (RT-PCR) Influenza B (RT-PCR) M. pneumoniae (PCR) Parainfluenza 1 (PCR) Parainfluenza 2 (PCR) Parainfluenza 3 (PCR) Parainfluenza 4 (PCR) RSV (PCR) Entero/Rhino (PCR) SARS-CoV-2 RNA (RT-PCR) Blood Type Antibody Screen 05/06/24 05/06/24 05/06/24 06:55 07:21 14:05 WBC 16.9 H RBC 3.58 L Hgb 8.7 L Hct 27.6 L MCV 77.1 L MCH 24.3 L MCHC 31.5 RDW 18.8 H Plt Count 380 MPV 11.9 Immature Gran % (Auto) Neut % (Auto) Lymph % (Auto) [place] % (Auto) Eos % (Auto) Baso % (Auto) Lymph # (Auto) [place] # (Auto) Eos # (Auto) Baso # (Auto) Abs Immat Gran (auto) Absolute Neuts (auto) Absolute Nucleated RBC 0.040 H Nucleated RBC % (auto) 0.2 ESR PT INR VBG pH VBG pCO2 VBG pO2 VBG HCO3 VBG O2 Saturation VBG Base Excess Sodium 142 Potassium 4.9 Chloride 100 Carbon Dioxide 20 L Anion Gap 27 H BUN 100 H Creatinine 9.94 H* Estim Creat Clear Calc 6.9 Estimated GFR 5 POC Glucose 105 115 Random Glucose 94 Lactic Acid Calcium 8.1 L Phosphorus Magnesium Total Bilirubin AST ALT Alkaline Phosphatase C-Reactive Protein Total Protein Albumin Lipase TSH [place] pH Pericard WBC [place] RBC Per[place]ard Neutrophils Pericard Lymphocytes Pericard Monocytes [place] Total Protein Pericardial Albumin Pericardial Glucose Pericardial Amylase Random Vancomycin Autoimmune Screen Rheumatoid Factor Proteinase 3 (PR3) Ab Myeloperoxidase Ab [employer] Antibody Tot Complement (CH50) Respiratory Panel Baumann Adenovirus (Rapid PCR) B.pert (TEM-PCR) B.parapertussis DNA PCR C. pneumoniae DNA (PCR) Coronavirus OC43 (PCR) Coronavirus HKU1 (PCR) Coronavirus 229E (PCR) Coronavirus NL63 (PCR) Hepatitis A IgM Ab Hep Bs Antigen Hep Bs Antibody Hep B Core Total Ab Hepatitis C Ab (EIA) HIV 1&2 Ab/P24 Ag 4thGn Human Metapneumovir PCR Influenza A (RT-PCR) Influenza B (RT-PCR) M. pneumoniae (PCR) Parainfluenza 1 (PCR) Parainfluenza 2 (PCR) Parainfluenza 3 (PCR) Parainfluenza 4 (PCR) RSV (PCR) Entero/Rhino (PCR) SARS-CoV-2 RNA (RT-PCR) Blood Type Antibody Screen 05/06/24 05/06/24 05/06/24 15:16 18:02 20:30 WBC RBC Hgb Hct MCV MCH MCHC RDW Plt Count MPV Immature Gran % (Auto) Neut % (Auto) Lymph % (Auto) [place] % (Auto) Eos % (Auto) Baso % (Auto) Lymph # (Auto) [place] # (Auto) Eos # (Auto) Baso # (Auto) Abs Immat Gran (auto) Absolute Neuts (auto) Absolute Nucleated RBC Nucleated RBC % (auto) ESR PT INR VBG pH VBG pCO2 VBG pO2 VBG HCO3 VBG O2 Saturation VBG Base Excess Sodium Potassium Chloride Carbon Dioxide Anion Gap BUN Creatinine Estim Creat Clear Calc Estimated GFR POC Glucose 118 H 97 Random Glucose Lactic Acid Calcium Phosphorus Magnesium Total Bilirubin AST ALT Alkaline Phosphatase C-Reactive Protein Total Protein Albumin Lipase TSH [place] pH [place]ard WBC [place] RBC [place] Neutrophils Per[place]ard Lymphocytes Pericard Monocytes [place] Total Protein Pericardial Albumin Pericardial Glucose Pericardial Amylase Random Vancomycin 14.2 L Autoimmune Screen Rheumatoid Factor Proteinase 3 (PR3) Ab Myeloperoxidase Ab [employer] Antibody Tot Complement (CH50) Respiratory Panel Baumann Adenovirus (Rapid PCR) B.pert (TEM-PCR) B.parapertussis DNA PCR C. pneumoniae DNA (PCR) Coronavirus OC43 (PCR) Coronavirus HKU1 (PCR) Coronavirus 229E (PCR) Coronavirus NL63 (PCR) Hepatitis A IgM Ab Hep Bs Antigen Hep Bs Antibody Hep B Core Total Ab Hepatitis C Ab (EIA) HIV 1&2 Ab/P24 Ag 4thGn Human Metapneumovir PCR Influenza A (RT-PCR) Influenza B (RT-PCR) M. pneumoniae (PCR) Parainfluenza 1 (PCR) Parainfluenza 2 (PCR) Parainfluenza 3 (PCR) Parainfluenza 4 (PCR) RSV (PCR) Entero/Rhino (PCR) SARS-CoV-2 RNA (RT-PCR) Blood Type Antibody Screen 05/07/24 05/07/24 05/07/24 06:57 07:06 11:12 WBC RBC Hgb Hct MCV MCH MCHC RDW Plt Count MPV Immature Gran % (Auto) Neut % (Auto) Lymph % (Auto) [place] % (Auto) Eos % (Auto) Baso % (Auto) Lymph # (Auto) [place] # (Auto) Eos # (Auto) Baso # (Auto) Abs Immat Gran (auto) Absolute Neuts (auto) Absolute Nucleated RBC Nucleated RBC % (auto) ESR PT INR VBG pH VBG pCO2 VBG pO2 VBG HCO3 VBG O2 Saturation VBG Base Excess Sodium Potassium Chloride Carbon Dioxide Anion Gap BUN Creatinine Estim Creat Clear Calc Estimated GFR POC Glucose 55 L* 209 H 164 H Random Glucose Lactic Acid Calcium Phosphorus Magnesium Total Bilirubin AST ALT Alkaline Phosphatase C-Reactive Protein Total Protein Albumin Lipase TSH [place] pH [place] WBC [place] RBC [place] Neutrophils Per[place]ard Lymphocytes Pericard Monocytes [place] Total Protein Pericardial Albumin Pericardial Glucose Pericardial Amylase Random Vancomycin Autoimmune Screen Rheumatoid Factor Proteinase 3 (PR3) Ab Myeloperoxidase Ab [employer] Antibody Tot Complement (CH50) Respiratory Panel Baumann Adenovirus (Rapid PCR) B.pert (TEM-PCR) B.parapertussis DNA PCR C. pneumoniae DNA (PCR) Coronavirus OC43 (PCR) Coronavirus HKU1 (PCR) Coronavirus 229E (PCR) Coronavirus NL63 (PCR) Hepatitis A IgM Ab Hep Bs Antigen Hep Bs Antibody Hep B Core Total Ab Hepatitis C Ab (EIA) HIV 1&2 Ab/P24 Ag 4thGn Human Metapneumovir PCR Influenza A (RT-PCR) Influenza B (RT-PCR) M. pneumoniae (PCR) Parainfluenza 1 (PCR) Parainfluenza 2 (PCR) Parainfluenza 3 (PCR) Parainfluenza 4 (PCR) RSV (PCR) Entero/Rhino (PCR) SARS-CoV-2 RNA (RT-PCR) Blood Type Antibody Screen 05/07/24 05/07/24 05/08/24 15:59 21:10 06:36 WBC 15.3 H RBC 3.74 L Hgb 9.0 L Hct 29.5 L MCV 78.9 L MCH 24.1 L MCHC 30.5 L RDW 18.6 H Plt Count 339 MPV 11.6 Immature Gran % (Auto) Neut % (Auto) Lymph % (Auto) [place] % (Auto) Eos % (Auto) Baso % (Auto) Lymph # (Auto) [place] # (Auto) Eos # (Auto) Baso # (Auto) Abs Immat Gran (auto) Absolute Neuts (auto) Absolute Nucleated RBC 0.020 H Nucleated RBC % (auto) 0.1 ESR PT INR VBG pH VBG pCO2 VBG pO2 VBG HCO3 VBG O2 Saturation VBG Base Excess Sodium 139 Potassium 5.0 Chloride 98 Carbon Dioxide 25 Anion Gap 21 H BUN 66 H Creatinine 8.15 H* Estim Creat Clear Calc 8.4 Estimated GFR 7 POC Glucose 127 H 117 H Random Glucose 131 H Lactic Acid Calcium 9.2 D Phosphorus Magnesium Total Bilirubin AST ALT Alkaline Phosphatase C-Reactive Protein Total Protein Albumin Lipase TSH [place] pH Pericard WBC [place] RBC [place]ard Neutrophils Per[place]ard Lymphocytes Pericard Monocytes [place] Total Protein Pericardial Albumin Pericardial Glucose Pericardial Amylase Random Vancomycin Autoimmune Screen Rheumatoid Factor Proteinase 3 (PR3) Ab Myeloperoxidase Ab [employer] Antibody Tot Complement (CH50) Respiratory Panel Baumann Adenovirus (Rapid PCR) B.pert (TEM-PCR) B.parapertussis DNA PCR C. pneumoniae DNA (PCR) Coronavirus OC43 (PCR) Coronavirus HKU1 (PCR) Coronavirus 229E (PCR) Coronavirus NL63 (PCR) Hepatitis A IgM Ab Hep Bs Antigen Hep Bs Antibody Hep B Core Total Ab Hepatitis C Ab (EIA) HIV 1&2 Ab/P24 Ag 4thGn Human Metapneumovir PCR Influenza A (RT-PCR) Influenza B (RT-PCR) M. pneumoniae (PCR) Parainfluenza 1 (PCR) Parainfluenza 2 (PCR) Parainfluenza 3 (PCR) Parainfluenza 4 (PCR) RSV (PCR) Entero/Rhino (PCR) SARS-CoV-2 RNA (RT-PCR) Blood Type Antibody Screen 05/08/24 05/08/24 05/08/24 07:29 12:51 16:35 WBC RBC Hgb Hct MCV MCH MCHC RDW Plt Count MPV Immature Gran % (Auto) Neut % (Auto) Lymph % (Auto) [place] % (Auto) Eos % (Auto) Baso % (Auto) Lymph # (Auto) [place] # (Auto) Eos # (Auto) Baso # (Auto) Abs Immat Gran (auto) Absolute Neuts (auto) Absolute Nucleated RBC Nucleated RBC % (auto) ESR PT INR VBG pH VBG pCO2 VBG pO2 VBG HCO3 VBG O2 Saturation VBG Base Excess Sodium Potassium Chloride Carbon Dioxide Anion Gap BUN Creatinine Estim Creat Clear Calc Estimated GFR POC Glucose 117 H 110 Random Glucose Lactic Acid Calcium Phosphorus Magnesium Total Bilirubin AST ALT Alkaline Phosphatase C-Reactive Protein Total Protein Albumin Lipase TSH [place] pH [place] WBC [place] RBC [place] Neutrophils [place] Lymphocytes Pericard Monocytes [place] Total Protein Pericardial Albumin Pericardial Glucose Pericardial Amylase Random Vancomycin Autoimmune Screen Rheumatoid Factor Proteinase 3 (PR3) Ab Myeloperoxidase Ab [employer] Antibody Tot Complement (CH50) Respiratory Panel Baumann Adenovirus (Rapid PCR) B.pert (TEM-PCR) B.parapertussis DNA PCR C. pneumoniae DNA (PCR) Coronavirus OC43 (PCR) Coronavirus HKU1 (PCR) Coronavirus 229E (PCR) Coronavirus NL63 (PCR) Hepatitis A IgM Ab Hep Bs Antigen Hep Bs Antibody Hep B Core Total Ab Hepatitis C Ab (EIA) HIV 1&2 Ab/P24 Ag 4thGn Human Metapneumovir PCR Influenza A (RT-PCR) Influenza B (RT-PCR) M. pneumoniae (PCR) Parainfluenza 1 (PCR) Parainfluenza 2 (PCR) Parainfluenza 3 (PCR) Parainfluenza 4 (PCR) RSV (PCR) Entero/Rhino (PCR) SARS-CoV-2 RNA (RT-PCR) Blood Type A Positive Antibody Screen NEGATIVE 05/08/24 05/08/24 05/09/24 18:17 23:34 06:48 WBC 15.5 H RBC 3.92 L Hgb 9.4 L Hct 30.6 L MCV 78.1 L MCH 24.0 L MCHC 30.7 L RDW 18.7 H Plt Count 328 MPV 11.5 Immature Gran % (Auto) 1.0 H Neut % (Auto) 81.2 H Lymph % (Auto) 10.4 L [place] % (Auto) 6.0 Eos % (Auto) 1.2 Baso % (Auto) 0.2 Lymph # (Auto) 1.6 [place] # (Auto) 0.9 Eos # (Auto) 0.2 Baso # (Auto) 0.0 Abs Immat Gran (auto) 0.15 H Absolute Neuts (auto) 12.6 H Absolute Nucleated RBC 0.030 H Nucleated RBC % (auto) 0.2 ESR PT INR VBG pH VBG pCO2 VBG pO2 VBG HCO3 VBG O2 Saturation VBG Base Excess Sodium 139 Potassium 4.9 Chloride 100 Carbon Dioxide 24 Anion Gap 20 BUN 38 H Creatinine 5.61 H* Estim Creat Clear Calc 12.2 Estimated GFR 10 POC Glucose 185 H Random Glucose 189 H Lactic Acid Calcium 9.3 Phosphorus Magnesium Total Bilirubin AST ALT Alkaline Phosphatase C-Reactive Protein Total Protein Albumin Lipase TSH [place] pH Pericard WBC [place] RBC [place] Neutrophils Per[place]ard Lymphocytes Pericard Monocytes [place] Total Protein Pericardial Albumin Pericardial Glucose Pericardial Amylase Random Vancomycin 10.9 L Autoimmune Screen Rheumatoid Factor Proteinase 3 (PR3) Ab Myeloperoxidase Ab [employer] Antibody Tot Complement (CH50) Respiratory Panel Baumann Adenovirus (Rapid PCR) B.pert (TEM-PCR) B.parapertussis DNA PCR C. pneumoniae DNA (PCR) Coronavirus OC43 (PCR) Coronavirus HKU1 (PCR) Coronavirus 229E (PCR) Coronavirus NL63 (PCR) Hepatitis A IgM Ab Hep Bs Antigen Hep Bs Antibody Hep B Core Total Ab Hepatitis C Ab (EIA) HIV 1&2 Ab/P24 Ag 4thGn Human Metapneumovir PCR Influenza A (RT-PCR) Influenza B (RT-PCR) M. pneumoniae (PCR) Parainfluenza 1 (PCR) Parainfluenza 2 (PCR) Parainfluenza 3 (PCR) Parainfluenza 4 (PCR) RSV (PCR) Entero/Rhino (PCR) SARS-CoV-2 RNA (RT-PCR) Blood Type Antibody Screen 05/09/24 05/09/24 05/09/24 07:28 10:47 12:16 WBC RBC Hgb Hct MCV MCH MCHC RDW Plt Count MPV Immature Gran % (Auto) Neut % (Auto) Lymph % (Auto) [place] % (Auto) Eos % (Auto) Baso % (Auto) Lymph # (Auto) [place] # (Auto) Eos # (Auto) Baso # (Auto) Abs Immat Gran (auto) Absolute Neuts (auto) Absolute Nucleated RBC Nucleated RBC % (auto) ESR PT INR VBG pH VBG pCO2 VBG pO2 VBG HCO3 VBG O2 Saturation VBG Base Excess Sodium Potassium Chloride Carbon Dioxide Anion Gap BUN Creatinine Estim Creat Clear Calc Estimated GFR POC Glucose 183 H 213 H 192 H Random Glucose Lactic Acid Calcium Phosphorus Magnesium Total Bilirubin AST ALT Alkaline Phosphatase C-Reactive Protein Total Protein Albumin Lipase TSH [place] pH [place] WBC [place] RBC [place]ard Neutrophils Per[place]ard Lymphocytes Pericard Monocytes [place] Total Protein Pericardial Albumin Pericardial Glucose Pericardial Amylase Random Vancomycin Autoimmune Screen Rheumatoid Factor Proteinase 3 (PR3) Ab Myeloperoxidase Ab [employer] Antibody Tot Complement (CH50) Respiratory Panel Baumann Adenovirus (Rapid PCR) B.pert (TEM-PCR) B.parapertussis DNA PCR C. pneumoniae DNA (PCR) Coronavirus OC43 (PCR) Coronavirus HKU1 (PCR) Coronavirus 229E (PCR) Coronavirus NL63 (PCR) Hepatitis A IgM Ab Hep Bs Antigen Hep Bs Antibody Hep B Core Total Ab Hepatitis C Ab (EIA) HIV 1&2 Ab/P24 Ag 4thGn Human Metapneumovir PCR Influenza A (RT-PCR) Influenza B (RT-PCR) M. pneumoniae (PCR) Parainfluenza 1 (PCR) Parainfluenza 2 (PCR) Parainfluenza 3 (PCR) Parainfluenza 4 (PCR) RSV (PCR) Entero/Rhino (PCR) SARS-CoV-2 RNA (RT-PCR) Blood Type Antibody Screen Airway Mallampati Class: Patient Non-Cooperative TM Dist: <=3cm Neck ROM: Full Heart: ok Lungs: ok Assessment and Plan Assessment Anesthesia Assessment: Anesthesia Plan Discussed Final Anesthetic Review Family History of Problems with Anesthesia: No History of Problems with Anesthesia: No NPO: Yes ASA Class: IV Final Preanesthetic Review: No Changes in Pt Med Stat, Meds/Allgs Chart Reviewed, Consent Obtained/Reviewed and Anes Risks/Benef Reviewed Patient Risk: High Procedure Risk: Low Anesthetic Plan Anesthetic Plan: GA and Agree w/ Assess. and Plan Disposition: Standard PACU
--- NOTE | 2024-05-09 13:18 | MHC.SHP ---
Pre-Procedural Eval Section A - 24 Hr Update-Section A only Date of Service: 05/09/24 The patient is an INPATIENT: Yes Changes since office visit: Yes Patient answered all questions The patient has been examined within 24 hours of the surgical procedure. The History & Physical has been completed within 30 days and I have reviewed it.: Yes Section B - Complete if H&P > 30 days Chief Complaint: Rash, pericardial effusion Allergies: Allergies Allergy/AdvReac Type Severity Reaction Status Date / Time Iodinated Contrast Media Allergy Severe Facial Verified 05/01/24 16:21 [Contrast Dye] Swelling Plan I have reviewed the history and physical and performed a pertinent physical examination on my patient. No changes have occurred unless specified. Time Spent With Patient Time: Total time managing care of this patient today ____ minutes.
--- NOTE | 2024-05-09 13:36 | P.PNNP_ITS ---
Subjective Subjective Date of Service: 05/09/24 Principal diagnosis: Preoperative assessment Interval history: Events noted. Physical Exam 2 Vital Signs: Vital Signs: Last Vital Signs Temp 98.2 F 05/09/24 12:13 Pulse 74 05/09/24 12:13 Resp 22 H 05/09/24 12:13 BP 190/84 H 05/09/24 12:13 Pulse Ox 99 05/09/24 12:13 O2 Del Method Nasal Cannula 05/09/24 12:13 O2 Flow Rate 2 05/09/24 12:13 Oxygen Flow Rate 2 05/01/24 16:16 BMI result Body Mass Index 29.1 Const: General: no acute distress Eyes: EOM: EOMs intact bilaterally Neck: Neck: Yes supple Resp: Auscultation: diminished lung sounds Cardio: Rate: regular rate GI: Palpation (GI): Soft to palpation Neuro: Other: Sleepy General: moves all extremities Objective Data Labs 05/09/24 06:48 05/09/24 06:48 Labs: Laboratory Results - last 24 hr 05/08/24 05/08/24 05/08/24 12:51 16:35 18:17 WBC RBC Hgb Hct MCV MCH MCHC RDW Plt Count MPV Immature Gran % (Auto) Neut % (Auto) Lymph % (Auto) [place] % (Auto) Eos % (Auto) Baso % (Auto) Lymph # (Auto) [place] # (Auto) Eos # (Auto) Baso # (Auto) Abs Immat Gran (auto) Absolute Neuts (auto) Absolute Nucleated RBC Nucleated RBC % (auto) Sodium Potassium Chloride Carbon Dioxide Anion Gap BUN Creatinine Estim Creat Clear Calc Estimated GFR POC Glucose 110 Random Glucose Calcium Random Vancomycin 10.9 L Blood Type A Positive Antibody Screen NEGATIVE 05/08/24 05/09/24 05/09/24 23:34 06:48 07:28 WBC 15.5 H RBC 3.92 L Hgb 9.4 L Hct 30.6 L MCV 78.1 L MCH 24.0 L MCHC 30.7 L RDW 18.7 H Plt Count 328 MPV 11.5 Immature Gran % (Auto) 1.0 H Neut % (Auto) 81.2 H Lymph % (Auto) 10.4 L [place] % (Auto) 6.0 Eos % (Auto) 1.2 Baso % (Auto) 0.2 Lymph # (Auto) 1.6 [place] # (Auto) 0.9 Eos # (Auto) 0.2 Baso # (Auto) 0.0 Abs Immat Gran (auto) 0.15 H Absolute Neuts (auto) 12.6 H Absolute Nucleated RBC 0.030 H Nucleated RBC % (auto) 0.2 Sodium 139 Potassium 4.9 Chloride 100 Carbon Dioxide 24 Anion Gap 20 BUN 38 H Creatinine 5.61 H* Estim Creat Clear Calc 12.2 Estimated GFR 10 POC Glucose 185 H 183 H Random Glucose 189 H Calcium 9.3 Random Vancomycin Blood Type Antibody Screen 05/09/24 05/09/24 10:47 12:16 WBC RBC Hgb Hct MCV MCH MCHC RDW Plt Count MPV Immature Gran % (Auto) Neut % (Auto) Lymph % (Auto) [place] % (Auto) Eos % (Auto) Baso % (Auto) Lymph # (Auto) [place] # (Auto) Eos # (Auto) Baso # (Auto) Abs Immat Gran (auto) Absolute Neuts (auto) Absolute Nucleated RBC Nucleated RBC % (auto) Sodium Potassium Chloride Carbon Dioxide Anion Gap BUN Creatinine Estim Creat Clear Calc Estimated GFR POC Glucose 213 H 192 H Random Glucose Calcium Random Vancomycin Blood Type Antibody Screen Microbiology Microbiology Results: Microbiology 05/05/24 10:45 Pericardial Fluid Gram Stain - Final 05/05/24 10:45 Pericardial Fluid Anaerobic Culture - Preliminary No growth to date. 05/05/24 10:45 Pericardial Fluid Body Fluid Culture - Final No growth after 2 days 05/03/24 Unknown Pericardial Fluid Gram Stain - Final 05/03/24 Unknown Pericardial Fluid Routine Culture - Final No growth after 2 days 05/03/24 Unknown Pericardial Fluid Anaerobic Culture - Final NO GROWTH AFTER 5 DAYS 05/01/24 17:33 Blood - Venous Blood Culture - Final No growth after 5 days. 05/01/24 16:51 Blood - Venous Blood Culture - Final No growth after 5 days. 05/03/24 Unknown Pericardial Fluid Fungal Identification - Preliminary No growth to date. Procedures Date of Service Date of Service: 05/09/24 Assessment & Plan Assessment and plan (1) ESRD needing dialysis: Status: Acute Plan 69 man with the end stage renal disease and pericardial effusion. Usually he is dialysis Monday at [facility]. Hemodialysis per protocol HD via PermCath Optimize fluid removal. Pericardial effusion status post pericardial window. Peripheral vascular disease management per vascular surgery; Concur with other medical management Time Spent With Patient Time: Total time managing care of this patient today ____ minutes. Progress Note: Quality Stroke Does the patient have a stroke diagnosis?: No
--- NOTE | 2024-05-09 15:02 | P.PNIM_ITS ---
Subjective Subjective Date of Service: 05/09/24 Interval History: Seen and evaluated this morning sleepy, alert with stimulation pain in BKA site plan for surgery today elevated BP Review of Systems Review of Systems: Yes all other systems are reviewed and are negative Physical Exam 2 Vital Signs: Vital Signs: Last Vital Signs Temp 98.0 F 05/09/24 14:46 Pulse 74 05/09/24 14:56 Resp 16 05/09/24 14:56 BP 174/79 H 05/09/24 14:56 Pulse Ox 97 05/09/24 14:56 O2 Del Method Room Air 05/09/24 14:56 O2 Flow Rate 2 05/09/24 12:13 Oxygen Flow Rate 2 05/01/24 16:16 BMI result Body Mass Index 29.1 Const: Other: General resting in bed,in no acute distress. Neck supple no JVD, no distended neck veins. CVS regular rate rhythm, Respiratory lungs clear to auscultation, diminished, no respiratory distress, no wheeze, no rhonchi. Gastrointestinal abdomen soft, non tender, bowel sounds audible Extremities right BKA dressing in place Neuro non focal , speech clear. Skin non blanchable rash back, Right BKA site: Dark violaceous discoloration noted all throughout the flap and above the incision site. Pain to palpation of the entire site. Right third finger: violaceous coloring with scabbed over prick sites noted to the left of the nail bed. Painful to palpation. Left great toe: discoloration noted to both sides of the nailbed. Not painful to palpation. Objective Data Active Medications Acetaminophen (Acetaminophen 325 Mg Tablet) 650 mg PO Q6H PRN PRN Reason: Pain, Mild 1-3,fever,headache Last Admin: 05/07/24 09:07 Dose: 650 mg Documented By: TRI Albuterol Sulfate (Albuterol Sulfate 90 Mcg 8 Gm Inhaler) 2 puff INHALE RQ4H PRN PRN Reason: Shortness Of Breath Albuterol/Ipratropium (Albuterol/Iprat 2.5/0.5mg 3 Ml Ampul.Neb) 3 ml INHALE RQID PRN PRN Reason: Wheezing Allopurinol (Allopurinol 100 Mg Tablet) 100 mg PO MOWEFR@1600 [facility] Last Admin: 05/08/24 17:13 Dose: 100 mg Documented By: SHAHZAD Atorvastatin Calcium (Atorvastatin Calcium 40 Mg Tablet) 40 mg PO MOWEFR@1600 [facility] Last Admin: 05/08/24 17:13 Dose: 40 mg Documented By: SHAHZAD Atorvastatin Calcium (Atorvastatin Calcium 40 Mg Tablet) 40 mg PO SUTUTHSA@0900 [facility] Last Admin: 05/09/24 09:26 Dose: Not Given Documented By: SHAHZAD Non-Admin Reason: NPO Bisacodyl (Bisacodyl 10 Mg Supp.Rect) 10 mg ID DAILY PRN PRN Reason: Constipation Calcium Carbonate (Calcium Carbonate 750 Mg Tab.Chew) 750 mg PO Q4H PRN PRN Reason: Heartburn Ceftriaxone Sodium (Ceftriaxone Sodium 1 Gm Vial) 1 gm IVPUSH Q24H [facility] Last Admin: 05/08/24 23:39 Dose: 1 gm Documented By: ELISEO Dextrose (Dextrose 50 % 25 Gm/50 Ml Syringe) 25 gm IVPUSH Q15M PRN; Protocol PRN Reason: per Hypoglycemia Standing Ord. Last Admin: 05/07/24 07:05 Dose: 25 gm Documented By: TRI Fentanyl (Fentanyl Citrate/Pf 100 Mcg/2 Ml Vial) 25 mcg IVPUSH Q5M PRN PRN Reason: Pain, Moderate to Severe (Pain Scale 4-10) Stop: 05/09/24 19:14 Fluticasone/Umeclidinium/Vilanterol (Fluticasone/Umeclidinium/Vilanterol 100/62.5/25 Blst.W.Dev) 1 puff INHALE RDAILY [facility] Last Admin: 05/09/24 07:57 Dose: 1 puff Documented By: ANNE Glucose (Glucose Gel 15 Gm Gel..Gram.) 15 gm PO Q15M PRN; Protocol PRN Reason: per Hypoglycemia Standing Ord. Heparin Sodium (Porcine) (Heparin Sodium,Porcine 5,000 Unit/Ml Vial) 5,000 unit SUBCUT Q8H [facility] Last Admin: 05/09/24 12:22 Dose: Not Given Documented By: SHAHZAD Non-Admin Reason: Off Unit: Surgery Hydralazine HCl (Hydralazine Hcl 25 Mg Tablet) 25 mg PO QID [facility]; Protocol Last Admin: 05/09/24 12:22 Dose: Not Given Documented By: SHAHZAD Non-Admin Reason: Off Unit: Surgery Hydromorphone HCl (Hydromorphone Hcl 2 Mg Tablet) 2 mg PO Q6H PRN PRN Reason: Pain, Severe (Pain Scale 7-10) Hydromorphone HCl (Hydromorphone Hcl 0.5 Mg/0.5 Ml Syringe) 0.25 mg IVPUSH Q5M PRN PRN Reason: Pain, Moderate to Severe (Pain Scale 4-10) Stop: 05/09/24 19:14 Vancomycin HCl 500 mg/ Sodium (Chloride) 110 mls @ 110 mls/hr IV Q24H [facility] Acetaminophen (Ofirmev) 1,000 mg in 100 mls @ 400 mls/hr IV ONCE PRN PRN Reason: Pain, Mild (Pain Scale 1-3) Stop: 05/09/24 19:14 Insulin Glargine (Insulin Glargine,Hum.Rec.Anlog 100 Unit/Ml 10 Ml Vial) 18 unit SUBCUT BEDTIME [facility] Last Admin: 05/08/24 23:38 Dose: Not Given Documented By: ELISEO Non-Admin Reason: Patient Refused Insulin Human Lispro (Insulin Lispro 100 Unit/Ml 3 Ml Vial) 0 unit SUBCUT QIDACHS [facility]; Protocol Last Admin: 05/09/24 11:35 Dose: Not Given Documented By: SHAHZAD Non-Admin Reason: NPO Levetiracetam (Levetiracetam 500 Mg Tablet) 500 mg PO BID [facility] Last Admin: 05/09/24 09:27 Dose: Not Given Documented By: SHAHZAD Non-Admin Reason: NPO Magnesium Hydroxide (Milk Of Magnesia 30 Ml Oral.Susp) 30 ml PO DAILY PRN PRN Reason: Constipation Melatonin (Melatonin 3 Mg Tablet) 6 mg PO BEDTIME PRN PRN Reason: Insomnia Last Admin: 05/04/24 22:08 Dose: 6 mg Documented By: SOURAV Naloxone HCl (Naloxone Hcl 0.4 Mg/Ml Vial) 0.04 mg IVPUSH Q5M PRN PRN Reason: Respiratory Rate < 10 Last Admin: 05/07/24 07:37 Dose: 0.04 mg Documented By: TRI Naloxone HCl (Naloxone Hcl 0.4 Mg/Ml Vial) 0.04 mg IVPUSH Q5M PRN PRN Reason: Excessive sedation or RR < 8 Omeprazole (Omeprazole 20 Mg Capsule.Dr) 20 mg PO DAILY@0630 [facility] Last Admin: 05/09/24 05:00 Dose: Not Given Documented By: ELISEO Non-Admin Reason: Plan for OR today Ondansetron HCl (Ondansetron Hcl 4 Mg/2 Ml Vial) 4 mg IVPUSH Q8H PRN PRN Reason: Nausea and Vomiting Last Admin: 05/04/24 14:05 Dose: 4 mg Documented By: GARCIA Ondansetron HCl (Ondansetron Hcl 4 Mg/2 Ml Vial) 4 mg IVPUSH ONCE PRN PRN Reason: Nausea and Vomiting Stop: 05/09/24 19:14 Pharmacy Consult (Consult Rx Vancomycin Dosing) 1 each MISCELLANE DAILY PRN PRN Reason: Consult order Polyethylene Glycol (Polyethylene Glycol 3350 17 Gm Powd.Pack) 17 gm PO DAILY [facility] Last Admin: 05/09/24 09:27 Dose: Not Given Documented By: SHAHZAD Non-Admin Reason: NPO Senna (Sennosides 8.6 Mg Tablet) 8.6 mg PO DAILY PRN PRN Reason: Constipation Sevelamer Carbonate (Sevelamer Carbonate Tablet 800 Mg Tablet) 1,600 mg PO TIDWM [facility] Last Admin: 05/09/24 12:22 Dose: Not Given Documented By: SHAHZAD Non-Admin Reason: Off Unit: Surgery Sodium Chloride (0.9 % Sodium Chloride Flush 3 Ml Syringe) 3 ml IVFLUSH QSHIFT [facility] Last Admin: 05/09/24 09:28 Dose: Not Given Documented By: SHAHZAD Non-Admin Reason: IV Running Zinc Acetate/Diphenhydramine (Diphenhydramine Hcl 2 % Cream 28 Gm Tube) 1 appl TOPICAL TID PRN; Protocol PRN Reason: rash Last Admin: 05/08/24 23:42 Dose: 1 appl Documented By: ELISEO Labs 05/09/24 06:48 05/09/24 06:48 Labs: Laboratory Results - last 24 hr 05/08/24 05/08/24 05/08/24 16:35 18:17 23:34 MCV MCH MCHC RDW Plt Count MPV Immature Gran % (Auto) Neut % (Auto) Lymph % (Auto) [place] % (Auto) Eos % (Auto) Baso % (Auto) Lymph # (Auto) [place] # (Auto) Eos # (Auto) Baso # (Auto) Abs Immat Gran (auto) Absolute Neuts (auto) Absolute Nucleated RBC Nucleated RBC % (auto) Anion Gap Estim Creat Clear Calc Estimated GFR POC Glucose 110 185 H Random Glucose Calcium Random Vancomycin 10.9 L 05/09/24 05/09/24 05/09/24 06:48 07:28 10:47 MCV 78.1 L MCH 24.0 L MCHC 30.7 L RDW 18.7 H Plt Count 328 MPV 11.5 Immature Gran % (Auto) 1.0 H Neut % (Auto) 81.2 H Lymph % (Auto) 10.4 L [place] % (Auto) 6.0 Eos % (Auto) 1.2 Baso % (Auto) 0.2 Lymph # (Auto) 1.6 [place] # (Auto) 0.9 Eos # (Auto) 0.2 Baso # (Auto) 0.0 Abs Immat Gran (auto) 0.15 H Absolute Neuts (auto) 12.6 H Absolute Nucleated RBC 0.030 H Nucleated RBC % (auto) 0.2 Anion Gap 20 Estim Creat Clear Calc 12.2 Estimated GFR 10 POC Glucose 183 H 213 H Random Glucose 189 H Calcium 9.3 Random Vancomycin 05/09/24 12:16 MCV MCH MCHC RDW Plt Count MPV Immature Gran % (Auto) Neut % (Auto) Lymph % (Auto) [place] % (Auto) Eos % (Auto) Baso % (Auto) Lymph # (Auto) [place] # (Auto) Eos # (Auto) Baso # (Auto) Abs Immat Gran (auto) Absolute Neuts (auto) Absolute Nucleated RBC Nucleated RBC % (auto) Anion Gap Estim Creat Clear Calc Estimated GFR POC Glucose 192 H Random Glucose Calcium Random Vancomycin Microbiology Microbiology Results: Microbiology 05/05/24 10:45 Gram Stain - Final Pericardial Fluid Anaerobic Culture - Preliminary No growth to date. Body Fluid Culture - Final No growth after 2 days 05/03/24 Unknown Gram Stain - Final Pericardial Fluid Routine Culture - Final No growth after 2 days Anaerobic Culture - Final NO GROWTH AFTER 5 DAYS Assessment and Plan (1) Left ventricular systolic dysfunction (LVSD): Status: Acute (2) Pericardial effusion: Status: Acute (3) Pericardial tamponade: Status: Acute (4) ESRD needing dialysis: Status: Acute (5) Hx of right BKA: Status: Acute Plan 69M PMH significant for?ESRD on HD M/W/F, insulin-dependent type 2 diabetes, peripheral vascular disease, s/p right BKA 04/[address] Cannon, seizure disorder, HFrEF, HTN, HLD, chronically on 2L home O2, GERD, and ROBERT on CPAP who presented to the ED with?rash x2 days. found to have mod severe pericardial effusion, course complicated by hemodynamic instability from tamponade, transferred to ICU, improved after pericardiocentesis, now downgraded to medical floor. Status post right BKA with necrosis at site, plan for AKA today cardio clearance for surgery as low-mod risk plan surgery tomorrow Right hand ischemic changes, 3rd finger get Orthopedic evaluation HTN Continue carvedilol, losartan add Amlodipine hydralazine discontinued for possible hydralazine induced vasculitis Generalized Rash noted 7-10 days prior to admission, seems to be improving ddx: Hydralazine induced vasculitis , systemic vasculitis , bacteremia /rule out septic emboli (less likely as cultures negative), cholesterol embolization syndrome had angiogram 2 months ago (negative eos), small-vessel vasculitis, Anca associated, cryoglobulinemia ANCA vasculitides, SAIDA, cold agglutinin, total complement, cryoglobulin, hepatitis serology, antihistone antibody, HIV, ds DNA, [employer]TER antibody pending Discontinued hydralazine continue IV vancomycin and cefazolin, started 05/01/2024 One dose of empiric IV steroids given Echo showed no vegetations Case discussed with ID she recommend to continue current antibiotics/added respiratory viral pathogen (-ve ) acute toxic metabolic encephalopathy due to opiates, responded to low dose narcan could be also from [place]ebri[place]ara haseeb ms contin, change to po dilaudid 2mg q6h prn Moderate to severe Pericardial effusion complicated by tamponade Echocardiogram showed severe biventricular dysfunction and [id number] pericardial effusion s/p pericardial window - follow up repeat echo Fluid analysis showing exudative effusion suggesting infection\inflammatory cause Chronic hypoxic respiratory failure on 2 L of home oxygen/obstructive sleep apnea on CPAP No acute hypoxia. ESRD on HD M/W/F Continue Velphoro, Lasix, nephro consulted, Dr. Rao following Chronic anemia hematocrit stable Insulin-dependent type 2 diabetes continue Sliding-scale insulin, resume Lantus 18 units at bedtime (home dose 22 units), Diabetic diet Seizure disorder Continue Keppra HLD/PAD aspirin Peripheral neuropathy Continue pregabalin full Code DVT Prophylaxis: hep sq reason for continued hospitalization:plan for aka today Quality Stroke Does the patient have a stroke diagnosis?: No VTE Prior VTE?: No VTE Risk Level:: Medical - moderate - high VTE Device Contraindication: N/A - Device Ordered VTE Drug Contraindication: Treatment Not Indicated
--- NOTE | 2024-05-09 15:16 | P.OP_ITS ---
Operative Note Operative Note Date of Service: 05/09/24 Narrative: Operative note by [facility] Preoperative diagnosis: 1. Ischemic right lower extremity 2. Nonhealing right BKA Postoperative diagnosis: Same Procedure: 1. Right Leg above-knee amputation 2. Myodesis Surgeon:Baltazar Cannon M.D. Recycling Program Manager: Amarilis MONTERO Anesthesia: General Specimens: One Drains: None Estimated blood loss:100 ml Indications: Complex 69-year-old gentleman who had undergone BKA on April 11 has a nonhealing stump site with purulent drainage in addition to intractable pain. The patient has signed the informed consent after reviewing risks, complications, benefits, and alternatives previously discussed with the patient. The patient was given the opportunity to ask any additional questions or voice any concerns. All questions were answered to the patient's satis faction. Procedure in detail: The patient was brought to the operating room prior to which a time-out was called for patient identification and site verification. The patient was placed in a supine position. The right lower extremity was prepped and draped in the standard surgical fashion. The intended incision site was marked. A fishmouth incision was carried out a proximally 10 cm above the knee joint. The incision was carried through the fascia. The anterior compartment muscles were divided using electrocautery dissection. The femur was cleared. Periosteal elevator was used to clear the periosteum from the femur. The femur was subsequently transected approximately 5 cm above the incision line. Once through we identified the SFA and profundus vessels and this was tied off with 2-0 silk ties. The amputation was then completed using electrocautery to create the posterior flap. The flap was debulked using electrocautery and Metzenbaum scissors. We then performed a myodesis. In the fibula on the medial and lateral aspect using a drill holes were then created. Using 2-0 Polysorb, the muscle was then buttressed to the tibia. The wound was then closed using 2-0 poly Sorb. The anterior and posterior flaps were then brought together and reapproximated on the fascial layer using 2-0 Polysorb. We then reapproximated the superficial layer with 2-0 poly Sorb suture. Finally skin was closed using 2-0 nylon in a mattress fashion. In addition we used skin clips. The stump was then dressed with Xeroform, Kerlix and an Javy wrap. The patient tolerated the procedure well. They were brought to recovery with stable vitals. At the end the case sponge needle instrument counts were correct x2. This note is constructed using voice recognition software. While every effort has been made to ensure accuracy, computerized mill mill recorder errors may have been included. Thank you for allowing me to participate in the care of your patient. Yours sincerely, Baltazar Cannon MD, FACS, R.P.V.I. Operative note by [facility]
[2024-05-09 16:39] LABS: Glucose, Whole Blood 193 mg/dL (60-115)
[2024-05-09] MEDS: Insulin Lispro 100 UNIT/ML 3 ML VIAL SUBCUT ×2 (16:51→22:34)
[2024-05-09] MEDS: HYDROmorphone HCl 2 MG TABLET PO (18:07)
[2024-05-09] MEDS: Mineral OiL enema 133 ML ENEMA PR (18:11)
[2024-05-09 20:34] LABS: Glucose, Whole Blood 204 mg/dL (60-115)
[2024-05-09] MEDS: HYDROmorphone HCl 2 MG/ML VIAL IVPUSH (21:39)
[2024-05-09] MEDS: Heparin Sodium,Porcine 5,000 UNIT/ML VIAL 5000 UNIT SUBCUT (21:41)
[2024-05-09] MEDS: Insulin Glargine,Hum.rec.anlog 100 UNIT/ML 10 ML VIAL 18 UNIT SUBCUT (22:34)
[2024-05-09] MEDS: cefTRIAXone sodium 1 GM VIAL IVPUSH (22:35)
[2024-05-10] VITALS (14 sets, daily range): BP systolic 79–149; BP diastolic 38–81; PULSE 67–151; RESP 17–20; TEMP 36.4–37.2; O2SAT 91–99
--- NOTE | 2024-05-10 | ECG_ITS ---
Test Reason : tachycardia Blood Pressure : */* mmHG Vent. Rate : 143 BPM Atrial Rate : * BPM P-R Int : * ms QRS Dur : 88 ms QT Int : 290 ms P-R-T Axes : * 18 161 degrees QTcB Int : 447 ms Poor data quality, interpretation may be adversely affected Atrial fibrillation with rapid ventricular response Minimal voltage criteria for LVH, may be normal variant ( [place] product ) Septal infarct , age undetermined ST & T wave abnormality, consider inferolateral ischemia Abnormal ECG When compared with ECG of 10-May-2024 18:56, Atrial fibrillation with rapid ventricular response has replaced Normal sinus rhythm ST now depressed in Lateral leads Referred By: Mya Reid Electronically Signed By: MARIE FRANCO MD
[2024-05-10] MEDS: Heparin Sodium,Porcine 5,000 UNIT/ML VIAL 5000 UNIT SUBCUT ×3 (05:52→22:11)
[2024-05-10 07:24] LABS: Glucose, Whole Blood 123 mg/dL (60-115)
[2024-05-10 07:57] LABS: Basophils Percent Auto 0.1 % (0-2); Hematocrit 25.6 % (42.0-52.0); Hemoglobin 7.9 g/dl (14.0-18.0); Imm Gran Abs Auto 0.37 X10*3/uL (0.00-0.03); Imm Gran Pct Auto 1.6 % (0.0-0.4); Lymphocytes Absolute Auto 1.1 X10*3/uL (1.2-4.9); Lymphocytes Percent Auto 4.6 % (20-40); MANUAL DIFF FLAG SCAN; Mean Corpuscular HGB Conc 30.9 g/dl (31.0-36.0); Mean Corpuscular Hemoglobin 23.9 pg (27.0-33.0); Mean Corpuscular Volume 77.3 fL (80.0-98.0); Mean Platelet Volume 11.2 fL (9.4-12.4); Monocytes Absolute Auto 1.1 X10*3/uL (0.1-1.2); Monocytes Percent Auto 4.9 % (2-11); NRBC Pct Auto 0.1 /100WBC (0.0-0.2); Neutrophils Absolute Auto 20.5 x10*3/uL (2.0-8.3); Neutrophils Percent Auto 88.8 % (45-73); Platelet Count 321 X10*3/uL (160-400); Red Blood Count 3.31 X10*6/uL (4.60-5.80); Red Cell Distribution Width 18.4 % (11.0-16.0); SCAN SMEAR FLAG 1; White Blood Count 23.1 X10*3/uL (4.8-10.8)
[2024-05-10 08:30] LABS: SLIDE REVIEW VERIFIED
[2024-05-10] MEDS: polyethylene glycoL 3350 17 GM POWD.PACK PO (08:59)
[2024-05-10] MEDS: levETIRAcetam 500 MG TABLET PO ×2 (09:00→22:10)
[2024-05-10] MEDS: Sevelamer Carbonate Tablet 800 MG TABLET 1600 MG PO ×2 (09:00→13:47)
[2024-05-10] MEDS: amLODIPine Besylate 5 MG TABLET PO (09:00)
[2024-05-10] MEDS: Docusate Sodium 100 MG CAPSULE PO ×2 (09:00→22:10)
[2024-05-10] MEDS: carvediloL 6.25 MG TABLET PO (09:00)
[2024-05-10] MEDS: bisacodyL 10 MG SUPP.RECT PR (09:00)
--- NOTE | 2024-05-10 09:00 | PM.CNOR ---
History of Present Illness HPI Consult date: 05/10/24 Chief complaint: Rash, pericardial effusion Narrative: 69-year-old male admitted to the hospital for pericardial effusion, peripheral vascular disease, above the knee amputation Patient and his son report that there are necrotic changes occurring in the distal aspect of several fingers, worst in the right middle finger Has been gradually worsening over time Of note, patient did have an above the knee amputation with Dr. Cannon yesterday No other acute complaints or concerns at this time Review of Systems Review of Systems: Yes all other systems are reviewed and are negative [facility] Past Medical History Medical History (Updated 05/10/24 @ 09:06 by KYLAH Gonzalez) Acute pericardial effusion ESRD needing dialysis Right sided weakness Dehiscence of wound Peripheral arterial disease Cellulitis of right foot Hypertension Dry gangrene HFrEF (heart failure with reduced ejection fraction) ESRD (end stage renal disease) Chronic combined systolic and diastolic CHF (congestive heart failure) Chronic pericardial effusion Arthritis Asthma Restless leg syndrome Acute on chronic systolic and diastolic heart failure, NYHA class 3 Anemia ESRD (end stage renal disease) Occlusive thrombus Pulmonary edema ROBERT (obstructive sleep apnea) Type 2 diabetes mellitus Hyperlipidemia Hypertension A-V fistula ESRD on dialysis Falling Family History Family History Father No problems noted. Mother No problems noted. Family history: reviewed and not pertinent Surgical History Surgical History (Updated 05/04/24 @ 07:10 by Rohith Valdes MD) Postop check Hx of right BKA Status post transmetatarsal amputation of right foot History of transmetatarsal amputation of foot History of surgery H/O colonoscopy Recurrent pleural effusion Pleural effusion on right (07/13/23) Social History Social History Household Members: Children Household Members Other:: son Housing: Apartment Are you a primary home care consultant to a significant other at home: No Do you presently have visiting nurse or other home services: No Alcohol intake: never Comment: n Patient Tobacco Use Status: Former Tobacco user Tobacco use type: Cigarette Second Hand Smoke Exposure: No Advance Directives Date on File: 04/13/23 service: No Meds Allergies Allergy/AdvReac Type Severity Reaction Status Date / Time Iodinated Contrast Media Allergy Severe Facial Verified 05/01/24 16:21 [Contrast Dye] Swelling Active Medications: Current Medications Acetaminophen (Acetaminophen 325 Mg Tablet) 650 mg PO Q6H PRN PRN Reason: Pain, Mild 1-3,fever,headache Albuterol Sulfate (Albuterol Sulfate 90 Mcg 8 Gm Inhaler) 2 puff INHALE RQ4H PRN PRN Reason: Shortness Of Breath Albuterol/Ipratropium (Albuterol/Iprat 2.5/0.5mg 3 Ml Ampul.Neb) 3 ml INHALE RQID PRN PRN Reason: Wheezing Allopurinol (Allopurinol 100 Mg Tablet) 100 mg PO MOWEFR@1600 [facility] Last Admin: 05/08/24 17:13 Dose: 100 mg Amlodipine Besylate (Amlodipine Besylate 5 Mg Tablet) 5 mg PO DAILY [facility]; Protocol Atorvastatin Calcium (Atorvastatin Calcium 40 Mg Tablet) 40 mg PO MOWEFR@1600 [facility] Last Admin: 05/08/24 17:13 Dose: 40 mg Atorvastatin Calcium (Atorvastatin Calcium 40 Mg Tablet) 40 mg PO SUTUTHSA@0900 [facility] Last Admin: 05/09/24 09:26 Dose: Not Given Bisacodyl (Bisacodyl 10 Mg Supp.Rect) 10 mg VT DAILY [facility] Calcium Carbonate (Calcium Carbonate 750 Mg Tab.Chew) 750 mg PO Q4H PRN PRN Reason: Heartburn Carvedilol (Carvedilol 6.25 Mg Tablet) 6.25 mg PO BID [facility]; Protocol Last Admin: 05/09/24 22:36 Dose: Not Given Ceftriaxone Sodium (Ceftriaxone Sodium 1 Gm Vial) 1 gm IVPUSH Q24H [facility] Last Admin: 05/09/24 22:35 Dose: 1 gm Dextrose (Dextrose 50 % 25 Gm/50 Ml Syringe) 25 gm IVPUSH Q15M PRN; Protocol PRN Reason: per Hypoglycemia Standing Ord. Last Admin: 05/07/24 07:05 Dose: 25 gm Docusate Sodium (Docusate Sodium 100 Mg Capsule) 100 mg PO BID [facility] Fluticasone/Umeclidinium/Vilanterol (Fluticasone/Umeclidinium/Vilanterol 100/62.5/25 Blst.W.Dev) 1 puff INHALE RDAILY [facility] Last Admin: 05/09/24 07:57 Dose: 1 puff Glucose (Glucose Gel 15 Gm Gel..Gram.) 15 gm PO Q15M PRN; Protocol PRN Reason: per Hypoglycemia Standing Ord. Heparin Sodium (Porcine) (Heparin Sodium,Porcine 5,000 Unit/Ml Vial) 5,000 unit SUBCUT Q8H [facility] Last Admin: 05/10/24 05:52 Dose: 5,000 unit Hydromorphone HCl (Hydromorphone Hcl 2 Mg Tablet) 2 mg PO Q6H PRN PRN Reason: Pain, Severe (Pain Scale 7-10) Last Admin: 05/09/24 18:07 Dose: 2 mg Vancomycin HCl 500 mg/ Sodium (Chloride) 110 mls @ 110 mls/hr IV Q24H [facility] Insulin Glargine (Insulin Glargine,Hum.Rec.Anlog 100 Unit/Ml 10 Ml Vial) 18 unit SUBCUT BEDTIME [facility] Last Admin: 05/09/24 22:34 Dose: 18 unit Insulin Human Lispro (Insulin Lispro 100 Unit/Ml 3 Ml Vial) 0 unit SUBCUT QIDACHS [facility]; Protocol Last Admin: 05/10/24 08:43 Dose: Not Given Levetiracetam (Levetiracetam 500 Mg Tablet) 500 mg PO BID [facility] Last Admin: 05/09/24 22:36 Dose: Not Given Losartan Potassium (Losartan Potassium 25 Mg Tablet) 25 mg PO BEDTIME [facility]; Protocol Last Admin: 05/09/24 22:36 Dose: Not Given Magnesium Hydroxide (Milk Of Magnesia 30 Ml Oral.Susp) 30 ml PO DAILY PRN PRN Reason: Constipation Melatonin (Melatonin 3 Mg Tablet) 6 mg PO BEDTIME PRN PRN Reason: Insomnia Naloxone HCl (Naloxone Hcl 0.4 Mg/Ml Vial) 0.04 mg IVPUSH Q5M PRN PRN Reason: Respiratory Rate < 10 Last Admin: 05/07/24 07:37 Dose: 0.04 mg Naloxone HCl (Naloxone Hcl 0.4 Mg/Ml Vial) 0.04 mg IVPUSH Q5M PRN PRN Reason: Excessive sedation or RR < 8 Omeprazole (Omeprazole 20 Mg Capsule.Dr) 20 mg PO DAILY@0630 [facility] Last Admin: 05/10/24 05:52 Dose: Not Given Ondansetron HCl (Ondansetron Hcl 4 Mg/2 Ml Vial) 4 mg IVPUSH Q8H PRN PRN Reason: Nausea and Vomiting Last Admin: 05/04/24 14:05 Dose: 4 mg Pharmacy Consult (Consult Rx Vancomycin Dosing) 1 each MISCELLANE DAILY PRN PRN Reason: Consult order Polyethylene Glycol (Polyethylene Glycol 3350 17 Gm Powd.Pack) 17 gm PO DAILY [facility] Last Admin: 05/09/24 09:27 Dose: Not Given Senna (Sennosides 8.6 Mg Tablet) 8.6 mg PO BEDTIME NASRE[facility] Sevelamer Carbonate (Sevelamer Carbonate Tablet 800 Mg Tablet) 1,600 mg PO TIDWM [facility] Last Admin: 05/09/24 16:59 Dose: Not Given Sodium Chloride (0.9 % Sodium Chloride Flush 3 Ml Syringe) 3 ml IVFLUSH QSHIFT [facility] Last Admin: 05/10/24 01:37 Dose: Not Given Zinc Acetate/Diphenhydramine (Diphenhydramine Hcl 2 % Cream 28 Gm Tube) 1 appl TOPICAL TID PRN; Protocol PRN Reason: rash Last Admin: 05/08/24 23:42 Dose: 1 appl Home Medications ?Medication ?Instructions ?Recorded ?Confirmed ?Last Taken ?Type albuterol sulfate 90 mcg/actuation 2 puff inhalation Q4H PRN 04/19/22 05/01/24 03/05/24 History aerosol inhaler Shortness Of Breath allopurinol 100 mg tablet 100 mg PO MOWEFR@1600 04/19/22 05/01/24 03/18/24 History atorvastatin 40 mg tablet 40 mg PO SUTUTHSA@0900 04/19/22 05/01/24 03/19/24 History doxazosin 4 mg tablet 4 mg PO BEDTIME 04/19/22 05/01/24 03/18/24 History furosemide 80 mg tablet 80 mg PO SUTUTHSA@0900 04/19/22 05/01/24 03/19/24 History ipratropium 0.5 mg-albuterol 3 mg 3 ml inhalation QID PRN Wheezing 04/19/22 05/01/24 Unknown History (2.5 mg base)/3 mL nebulization soln omeprazole 20 mg capsule,delayed 20 mg PO DAILY@0630 04/19/22 05/01/24 03/19/24 History release insulin lispro 100 unit/mL 1 sliding scale dose subcut TIDAC 04/10/23 05/01/24 03/18/24 History subcutaneous pen aspirin 81 mg tablet,delayed 81 mg PO SUTUTHSA@09 06/20/23 05/01/24 03/19/24 History release pregabalin 75 mg capsule 75 mg PO SUTUTHSA@,15,21 06/20/23 05/01/24 03/19/24 History hydralazine 25 mg tablet 25 mg PO SUTUTHSA@,15,21 01/24/24 05/01/24 03/19/24 History sucroferric oxyhydroxide 500 mg 500 mg PO TID 01/24/24 05/01/24 03/19/24 History chewable tablet (Velphoro) acetaminophen 325 mg tablet 650 mg PO Q4H PRN PAIN/FEVER 04/05/24 05/01/24 Unknown History aspirin 81 mg tablet,delayed 81 mg PO MOWEFR@159904/05/24 05/01/24 Unknown History release atorvastatin 40 mg tablet 40 mg PO MOWEFR@159904/05/24 05/01/24 Unknown History bisacodyl 10 mg rectal suppository 10 mg VT DAILY PRN Constipation 04/05/24 05/01/24 Unknown History (Dulcolax (bisacodyl)) carvedilol 6.25 mg tablet 6.25 mg PO BID 04/05/24 05/01/24 Unknown History fluticasone fur. 100 mcg-umeclid 1 inh inhalation DAILY 04/05/24 05/01/24 Unknown History 62.5 mcg-vilant 25 mcg inhalat.powder (Trelegy Ellipta) furosemide 80 mg tablet 80 mg PO MOWEFR@159904/05/24 05/01/24 Unknown History hydralazine 25 mg tablet 25 mg PO MOWEFR@1600 04/05/24 05/01/24 Unknown History losartan 25 mg tablet 25 mg PO MOWEFR@1600 04/05/24 05/01/24 Unknown History losartan 25 mg tablet 25 mg PO SUTUTHSA@0900 04/05/24 05/01/24 Unknown History oxycodone 5 mg tablet 5 mg PO Q6H PRN pain 04/05/24 05/01/24 Unknown History pregabalin 75 mg capsule 75 mg PO MOWEFR@159904/05/24 05/01/24 Unknown History sennosides 8.6 mg tablet (senna) 8.6 mg PO DAILY PRN Constipation 04/05/24 05/01/24 Unknown History insulin glargine 100 unit/mL (3 22 unit subcut BEDTIME 05/01/24 05/01/24 Unknown History mL) subcutaneous pen (Lantus Solostar U-100 Insulin) Physical Exam Vital Signs: Vital Signs: Last Vital Signs Temp 97.6 F 05/10/24 07:40 Pulse 90 05/10/24 07:40 Resp 20 05/10/24 07:40 BP 149/65 H 05/10/24 07:40 Pulse Ox 99 05/10/24 07:40 O2 Del Method Nasal Cannula 05/10/24 07:40 O2 Flow Rate 1 05/10/24 07:40 Oxygen Flow Rate 2 05/01/24 16:16 BMI result Body Mass Index 29.1 Extrem: Other: Patient is alert, oriented, and in no acute distress. Neuro: No sensation of the tip of the right middle finger Diminished sensation of the tips of all digits of the left hand Vascular: There is no capillary refill to the tip of the right middle finger, as there are significant necrotic changes that have occurred Pain: No tenderness to palpation of the right hand Skin: Significant necrotic changes noted of the right middle finger, No evidence of infection surrounding this area General: No ecchymosis, erythema, or evidence of infection. Psych: Appears grossly normal Affect normal Attitude cooperative Results Labs 05/10/24 06:47 05/09/24 06:48 Labs: Abnormal lab results 05/09/24 05/09/24 05/09/24 Range/Units 10:47 12:16 16:19 WBC (4.8-10.8) X10*3/uL RBC (4.60-5.80) X10*6/uL Hgb (14.0-18.0) g/dl Hct (42.0-52.0) % MCV (80.0-98.0) fL MCH (27.0-33.0) pg MCHC (31.0-36.0) g/dl RDW (11.0-16.0) % Immature Gran % (Auto) (0.0-0.4) % Neut % (Auto) (45-73) % Lymph % (Auto) (20-40) % Lymph # (Auto) (1.2-4.9) X10*3/uL Abs Immat Gran (auto) (0.00-0.03) X10*3/uL Absolute Neuts (auto) (2.0-8.3) x10*3/uL Absolute Nucleated RBC (0.0-0.012) X10*3/uL POC Glucose 213 H 192 H 193 H (60-115) mg/dL 05/09/24 05/10/24 05/10/24 Range/Units 20:31 06:47 07:17 WBC 23.1 H (4.8-10.8) X10*3/uL RBC 3.31 L (4.60-5.80) X10*6/uL Hgb 7.9 L (14.0-18.0) g/dl Hct 25.6 L (42.0-52.0) % MCV 77.3 L (80.0-98.0) fL MCH 23.9 L (27.0-33.0) pg MCHC 30.9 L (31.0-36.0) g/dl RDW 18.4 H (11.0-16.0) % Immature Gran % (Auto) 1.6 H (0.0-0.4) % Neut % (Auto) 88.8 H (45-73) % Lymph % (Auto) 4.6 L (20-40) % Lymph # (Auto) 1.1 L (1.2-4.9) X10*3/uL Abs Immat Gran (auto) 0.37 H (0.00-0.03) X10*3/uL Absolute Neuts (auto) 20.5 H (2.0-8.3) x10*3/uL Absolute Nucleated RBC 0.030 H (0.0-0.012) X10*3/uL POC Glucose 204 H 123 H (60-115) mg/dL H & H 05/01/24 05/02/24 05/03/24 Range/Units 16:51 04:21 06:13 Hgb 9.2 L 8.2 L 8.2 L (14.0-18.0) g/dl Hct 28.5 L 26.6 L 26.3 L (42.0-52.0) % 05/03/24 05/04/24 05/05/24 Range/Units 19:11 05:50 06:54 Hgb 8.2 L 7.9 L 8.1 L (14.0-18.0) g/dl Hct 26.3 L 24.9 L 26.4 L (42.0-52.0) % 05/06/24 05/08/24 05/09/24 Range/Units 06:55 06:36 06:48 Hgb 8.7 L 9.0 L 9.4 L (14.0-18.0) g/dl Hct 27.6 L 29.5 L 30.6 L (42.0-52.0) % 05/10/24 Range/Units 06:47 Hgb 7.9 L (14.0-18.0) g/dl Hct 25.6 L (42.0-52.0) % Coagulation 05/01/24 Range/Units 16:51 INR 1.3 H (0.9-1.1) All other labs normal. Assessment and Plan (1) Necrotic wound of left hand: Status: Acute Plan 1. necrosis of the tip of the left middle finger Patient is educated about this condition Patient is educated about some of the treatment options available No acute orthopedic intervention indicated while the patient is hospitalized If patient begins to develop signs and symptoms of infection around sites of necrosis, please re-consult Orthopedics Once the patient was discharged and his other medical conditions have stabilized, he can follow-up with our office Continue with all other recommendations per Medicine and other consultants Orthopedics will sign off at this time Procedures Date of Service Date of Service: 05/10/24
[2024-05-10] MEDS: 0.9 % Sodium Chloride Flush 3 ML SYRINGE IVFLUSH ×2 (09:01→22:09)
[2024-05-10 10:46] LABS: Anion Gap 22 (12-20); Blood Urea Nitrogen 59 mg/dL (9-16); Calcium 9.3 mg/dL (8.4-10.2); Carbon Dioxide 22 mmol/L (22-29); Chloride 101 mmol/L (96-108); Creatinine Clr Calc Pharmacy 9.5; Estimated Glomerular Filt Rate 8; Glucose Random 120 mg/dL (60-115); Potassium 4.9 mmol/L (3.3-5.1); Sodium 140 mmol/L (135-145)
[2024-05-10 11:15] LABS: Glucose, Whole Blood 218 mg/dL (60-115)
[2024-05-10] MEDS: Insulin Lispro 100 UNIT/ML 3 ML VIAL SUBCUT (11:38)
--- NOTE | 2024-05-10 11:46 | HO.VASCPN ---
Subjective Subjective Date of Service: 05/10/24 Interval history: Beau is doing okay this morning. He denies any pain but does appear slightly confused. He has taken the dressings off multiple times since last night. His last pain meds were at 18:00 last night. He is due for dialysis at 13:30 today. Physical Exam Vital Signs: Vital Signs: Last Vital Signs Temp 97.9 F 05/10/24 11:31 Pulse 85 05/10/24 11:31 Resp 20 05/10/24 11:31 BP 96/53 L 05/10/24 11:31 Pulse Ox 95 05/10/24 11:31 O2 Del Method Nasal Cannula 05/10/24 11:31 O2 Flow Rate 1 05/10/24 11:31 Oxygen Flow Rate 2 05/01/24 16:16 BMI result Body Mass Index 29.1 Const: General: comfortable and no acute distress Orientation/consciousness: patient oriented x3 HEENT: Ears: hearing grossly normal bilaterally Resp: Effort & Inspection: normal respiratory effort and able to speak in complete sentences Auscultation: clear to auscultation bilaterally Cardio: Rate: regular rate Rhythm: regular rhythm Heart sounds: S1 normal heart sound present and S2 normal heart sound present Bruits: no abdominal aortic bruits, no carotid bruits, no femoral bruits and no renal bruits GI: Palpation (GI): No Abdominal aortic bruit present Neuro: General: patient oriented x3 Cranial nerves: Yes CN's II-XII intact bilaterally Extrem: Other: Right AKA site: Dressing just completed by nursing, not taken down again. Nursing states the site looks clean, dry, and intact. Progress Note: A&P Assessment and plan (1) Above knee amputation of right lower extremity: Status: Acute Assessment and Plan: Beau is postop day 1 status post right above-knee amputation. Nursing states he has been doing well, his last pain medication was 1800 last night. His son states that he still appears confused, but that often occurs with narcotics. The patient denies any pain today. He appears comfortable. The patient has removed the dressings multiple times since postop yesterday. The nurse this morning was able to place Xeroform, 4x4s, and Kerlix wrap; she did have to reinforce it with some tape. I did discuss with her if we could avoid tape onto his skin that would be the best but understand that it may be necessary to keep the dressing on. Ortho was consulted for the wound on his middle finger, they recommended following up outpatient. We will also continue to monitor the left great toe, which has small amounts of necrosis on either side of the nail bed. We will continue to monitor. If there are any questions or concerns, please do not hesitate to reach out to us. Time Spent With Patient Time: Total time managing care of this patient today ____ minutes. Procedures Date of Service Date of Service: 05/10/24 Quality Stroke Does the patient have a stroke diagnosis?: No VTE Prior VTE?: No VTE Risk Level:: Medical - moderate - high VTE Device Contraindication: N/A - Device Ordered VTE Drug Contraindication: Treatment Not Indicated
--- NOTE | 2024-05-10 12:07 | MHC.CM.PN ---
EMR REVIEWED, PT POD1 AKA, PT WILL NEED P.T. AND ANTIC STR, FAMILY AGREEABLE TO STR, LOCAL SNF REF [facility] WILL CONT TO FOLLOW DC NEEDS.
--- NOTE | 2024-05-10 13:41 | P.PNIM_ITS ---
Subjective Subjective Date of Service: 05/10/24 Interval History: Seen and evaluated this morning more alert and interactive pain better in right leg POD 1 post AKA better controlled BP Review of Systems Review of Systems: Yes all other systems are reviewed and are negative Physical Exam 2 Vital Signs: Vital Signs: Last Vital Signs Temp 97.9 F 05/10/24 11:31 Pulse 85 05/10/24 11:31 Resp 20 05/10/24 11:31 BP 96/53 L 05/10/24 11:31 Pulse Ox 95 05/10/24 11:31 O2 Del Method Nasal Cannula 05/10/24 11:31 O2 Flow Rate 1 05/10/24 11:31 Oxygen Flow Rate 2 05/01/24 16:16 BMI result Body Mass Index 29.1 Const: Other: General resting in bed,in no acute distress. Neck supple no JVD, no distended neck veins. CVS regular rate rhythm, Respiratory lungs clear to auscultation, diminished, no respiratory distress, no wheeze, no rhonchi. Gastrointestinal abdomen soft, non tender, bowel sounds audible Extremities right BKA dressing in place Neuro non focal , speech clear. Skin non blanchable rash back, Right AKA site clean, covered with dressing, Right third finger: violaceous coloring with scabbed over prick sites noted to the left of the nail bed. Painful to palpation. Left great toe: discoloration noted to both sides of the nailbed. Not painful to palpation. Objective Data Active Medications Acetaminophen (Acetaminophen 325 Mg Tablet) 650 mg PO Q6H PRN PRN Reason: Pain, Mild 1-3,fever,headache Albuterol Sulfate (Albuterol Sulfate 90 Mcg 8 Gm Inhaler) 2 puff INHALE RQ4H PRN PRN Reason: Shortness Of Breath Albuterol/Ipratropium (Albuterol/Iprat 2.5/0.5mg 3 Ml Ampul.Neb) 3 ml INHALE RQID PRN PRN Reason: Wheezing Allopurinol (Allopurinol 100 Mg Tablet) 100 mg PO MOWEFR@1600 [facility] Last Admin: 05/08/24 17:13 Dose: 100 mg Documented By: SHAHZAD Amlodipine Besylate (Amlodipine Besylate 5 Mg Tablet) 5 mg PO DAILY [facility]; Protocol Last Admin: 05/10/24 09:00 Dose: 5 mg Documented By: FRANCSICO Atorvastatin Calcium (Atorvastatin Calcium 40 Mg Tablet) 40 mg PO MOWEFR@1600 [facility] Last Admin: 05/08/24 17:13 Dose: 40 mg Documented By: SHAHZAD Atorvastatin Calcium (Atorvastatin Calcium 40 Mg Tablet) 40 mg PO SUTUTHSA@0900 [facility] Last Admin: 05/09/24 09:26 Dose: Not Given Documented By: SHAHZAD Non-Admin Reason: NPO Bisacodyl (Bisacodyl 10 Mg Supp.Rect) 10 mg MO DAILY [facility] Last Admin: 05/10/24 09:00 Dose: 10 mg Documented By: FRANCISCO Calcium Carbonate (Calcium Carbonate 750 Mg Tab.Chew) 750 mg PO Q4H PRN PRN Reason: Heartburn Carvedilol (Carvedilol 6.25 Mg Tablet) 6.25 mg PO BID [facility]; Protocol Last Admin: 05/10/24 09:00 Dose: 6.25 mg Documented By: FRANCISCO Ceftriaxone Sodium (Ceftriaxone Sodium 1 Gm Vial) 1 gm IVPUSH Q24H [facility] Last Admin: 05/09/24 22:35 Dose: 1 gm Documented By: MARLEN Dextrose (Dextrose 50 % 25 Gm/50 Ml Syringe) 25 gm IVPUSH Q15M PRN; Protocol PRN Reason: per Hypoglycemia Standing Ord. Last Admin: 05/07/24 07:05 Dose: 25 gm Documented By: TRI Docusate Sodium (Docusate Sodium 100 Mg Capsule) 100 mg PO BID [facility] Last Admin: 05/10/24 09:00 Dose: 100 mg Documented By: FRANCISCO Fluticasone/Umeclidinium/Vilanterol (Fluticasone/Umeclidinium/Vilanterol 100/62.5/25 Blst.W.Dev) 1 puff INHALE RDAILY [facility] Last Admin: 05/10/24 11:29 Dose: Not Given Documented By: EMELIA Non-Admin Reason: Patient Asleep Glucose (Glucose Gel 15 Gm Gel..Gram.) 15 gm PO Q15M PRN; Protocol PRN Reason: per Hypoglycemia Standing Ord. Heparin Sodium (Porcine) (Heparin Sodium,Porcine 5,000 Unit/Ml Vial) 5,000 unit SUBCUT Q8H [facility] Last Admin: 05/10/24 05:52 Dose: 5,000 unit Documented By: MARLEN Hydromorphone HCl (Hydromorphone Hcl 2 Mg Tablet) 2 mg PO Q6H PRN PRN Reason: Pain, Severe (Pain Scale 7-10) Last Admin: 05/09/24 18:07 Dose: 2 mg Documented By: SHAHZAD Vancomycin HCl 500 mg/ Sodium (Chloride) 110 mls @ 110 mls/hr IV Q24H [facility] Insulin Glargine (Insulin Glargine,Hum.Rec.Anlog 100 Unit/Ml 10 Ml Vial) 18 unit SUBCUT BEDTIME [facility] Last Admin: 05/09/24 22:34 Dose: 18 unit Documented By: MARLEN Insulin Human Lispro (Insulin Lispro 100 Unit/Ml 3 Ml Vial) 0 unit SUBCUT QIDACHS [facility]; Protocol Last Admin: 05/10/24 11:38 Dose: 4 unit Documented By: FRANCISCO Levetiracetam (Levetiracetam 500 Mg Tablet) 500 mg PO BID [facility] Last Admin: 05/10/24 09:00 Dose: 500 mg Documented By: FRANCISCO Losartan Potassium (Losartan Potassium 25 Mg Tablet) 25 mg PO BEDTIME [facility]; Protocol Last Admin: 05/09/24 22:36 Dose: Not Given Documented By: MARLEN Non-Admin Reason: Patient Refused Magnesium Hydroxide (Milk Of Magnesia 30 Ml Oral.Susp) 30 ml PO DAILY PRN PRN Reason: Constipation Melatonin (Melatonin 3 Mg Tablet) 6 mg PO BEDTIME PRN PRN Reason: Insomnia Naloxone HCl (Naloxone Hcl 0.4 Mg/Ml Vial) 0.04 mg IVPUSH Q5M PRN PRN Reason: Respiratory Rate < 10 Last Admin: 05/07/24 07:37 Dose: 0.04 mg Documented By: TRI Naloxone HCl (Naloxone Hcl 0.4 Mg/Ml Vial) 0.04 mg IVPUSH Q5M PRN PRN Reason: Excessive sedation or RR < 8 Omeprazole (Omeprazole 20 Mg Capsule.Dr) 20 mg PO DAILY@0630 [facility] Last Admin: 05/10/24 05:52 Dose: Not Given Documented By: MARLEN Non-Admin Reason: Patient Refused Ondansetron HCl (Ondansetron Hcl 4 Mg/2 Ml Vial) 4 mg IVPUSH Q8H PRN PRN Reason: Nausea and Vomiting Last Admin: 05/04/24 14:05 Dose: 4 mg Documented By: GARCIA Pharmacy Consult (Consult Rx Vancomycin Dosing) 1 each MISCELLANE DAILY PRN PRN Reason: Consult order Polyethylene Glycol (Polyethylene Glycol 3350 17 Gm Powd.Pack) 17 gm PO DAILY [facility] Last Admin: 05/10/24 08:59 Dose: 17 gm Documented By: FRANCISCO Senna (Sennosides 8.6 Mg Tablet) 8.6 mg PO BEDTIME NASREEN Sevelamer Carbonate (Sevelamer Carbonate Tablet 800 Mg Tablet) 1,600 mg PO TIDWM [facility] Last Admin: 05/10/24 09:00 Dose: 1,600 mg Documented By: FRANCISCO Sodium Chloride (0.9 % Sodium Chloride Flush 3 Ml Syringe) 3 ml IVFLUSH QSHIFT [facility] Last Admin: 05/10/24 09:01 Dose: 3 ml Documented By: FRANCISCO Zinc Acetate/Diphenhydramine (Diphenhydramine Hcl 2 % Cream 28 Gm Tube) 1 appl TOPICAL TID PRN; Protocol PRN Reason: rash Last Admin: 05/08/24 23:42 Dose: 1 appl Documented By: ELISEO Labs 05/10/24 06:47 05/10/24 06:47 Labs: Laboratory Results - last 24 hr 05/02/24 05/02/24 05/09/24 18:47 18:48 16:19 MCV MCH MCHC RDW Plt Count MPV Immature Gran % (Auto) Neut % (Auto) Lymph % (Auto) [place] % (Auto) Eos % (Auto) Baso % (Auto) Lymph # (Auto) [place] # (Auto) Eos # (Auto) Baso # (Auto) Abs Immat Gran (auto) Absolute Neuts (auto) Absolute Nucleated RBC Nucleated RBC % (auto) Smear Tech's Comments Anion Gap Estim Creat Clear Calc Estimated GFR POC Glucose 193 H Random Glucose Calcium Cryoglobulin Cancelled Cryoglobulin Cryocrit Cancelled Anti-ds DNA Ab Confirm TNP Cancelled Test Cancelled 05/09/24 05/10/24 05/10/24 20:31 06:47 07:17 MCV 77.3 L MCH 23.9 L MCHC 30.9 L RDW 18.4 H Plt Count 321 MPV 11.2 Immature Gran % (Auto) 1.6 H Neut % (Auto) 88.8 H Lymph % (Auto) 4.6 L [place] % (Auto) 4.9 Eos % (Auto) 0.0 Baso % (Auto) 0.1 Lymph # (Auto) 1.1 L [place] # (Auto) 1.1 Eos # (Auto) 0.0 Baso # (Auto) 0.0 Abs Immat Gran (auto) 0.37 H Absolute Neuts (auto) 20.5 H Absolute Nucleated RBC 0.030 H Nucleated RBC % (auto) 0.1 Smear Tech's Comments VERIFIED Anion Gap 22 H Estim Creat Clear Calc 9.5 Estimated GFR 8 POC Glucose 204 H 123 H Random Glucose 120 H Calcium 9.3 Cryoglobulin Cryoglobulin Cryocrit Anti-ds DNA Ab Confirm Cancelled Test 05/10/24 11:04 MCV MCH MCHC RDW Plt Count MPV Immature Gran % (Auto) Neut % (Auto) Lymph % (Auto) [place] % (Auto) Eos % (Auto) Baso % (Auto) Lymph # (Auto) [place] # (Auto) Eos # (Auto) Baso # (Auto) Abs Immat Gran (auto) Absolute Neuts (auto) Absolute Nucleated RBC Nucleated RBC % (auto) Smear Tech's Comments Anion Gap Estim Creat Clear Calc Estimated GFR POC Glucose 218 H Random Glucose Calcium Cryoglobulin Cryoglobulin Cryocrit Anti-ds DNA Ab Confirm Cancelled Test Microbiology Microbiology Results: Microbiology 05/05/24 10:45 Gram Stain - Final Pericardial Fluid Anaerobic Culture - Final NO GROWTH AFTER 5 DAYS Body Fluid Culture - Final No growth after 2 days Assessment and Plan (1) Above knee amputation of right lower extremity: Status: Acute (2) Necrotic wound of left hand: Status: Acute (3) Left ventricular systolic dysfunction (LVSD): Status: Acute (4) PVD (peripheral vascular disease): Status: Acute (5) Status post creation of pericardial window: Status: Acute (6) Pericardial tamponade: Status: Acute Plan 69M PMH significant for?ESRD on HD M/W/F, insulin-dependent type 2 diabetes, peripheral vascular disease, s/p right BKA 04/[address] Cannon, seizure disorder, HFrEF, HTN, HLD, chronically on 2L home O2, GERD, and ROBERT on CPAP who presented to the ED with?rash x2 days. found to have mod severe pericardial effusion, course complicated by hemodynamic instability from tamponade, transferred to ICU, improved after pericardiocentesis, now downgraded to medical floor. 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 Generalized Rash resolving noted 7-10 days prior to admission, improving ddx: Hydralazine induced vasculitis , systemic vasculitis , small-vessel vasculitis, Anca associated ANCA vasculitides, SAIDA, cold agglutinin, total complement, cryoglobulin, hepatitis serology, antihistone antibody, HIV, ds DNA, [employer] antibody pending Discontinued hydralazine continue IV vancomycin and cefazolin, started 05/01/2024 One dose of empiric IV steroids given Echo showed no vegetations Case discussed with ID she recommend to continue current antibiotics acute toxic metabolic encephalopathy imprving due to opiates, responded to low dose narcan could be also from Keppra stop ms contin, change to po dilaudid 2mg q6h prn Moderate to severe Pericardial effusion complicated by tamponade Echocardiogram showed severe biventricular dysfunction and [id number] pericardial effusion s/p pericardial window - follow up repeat echo Fluid analysis showing exudative effusion suggesting infection\inflammatory cause Chronic hypoxic respiratory failure on 2 L of home oxygen/obstructive sleep apnea on CPAP No acute hypoxia. ESRD on HD M/W/F Continue VelphJessica flores, nephro consulted, Dr. Rao following Chronic anemia hematocrit stable Insulin-dependent type 2 diabetes continue Sliding-scale insulin, resume Lantus 18 units at bedtime (home dose 22 units), Diabetic diet Seizure disorder Continue Keppra HLD/PAD aspirin Peripheral neuropathy Continue pregabalin full Code DVT Prophylaxis: hep sq reason for continued hospitalization: Post AKA care, IV Abx, PT evaluation Quality Stroke Does the patient have a stroke diagnosis?: No VTE Prior VTE?: No VTE Risk Level:: Medical - moderate - high VTE Device Contraindication: N/A - Device Ordered VTE Drug Contraindication: Treatment Not Indicated
--- NOTE | 2024-05-10 13:43 | P.CDIM_ITS ---
PROVIDER RESPONSE TEXT: To clarify, the appropriate diagnosis supported by the clinical indicators: Acute QUERY TEXT: PHYSICIAN'S DOCUMENTATION REQUEST Date of Query: 05/09/2024 11:34 AM EST Patient Name: Beau Marie Admit Date: 05/02/2024 Dear Edgardo Winkler MD, A review of the medical record indicates additional documentation may be needed. Please review below and update the documentation accordingly. Clinical Indicators: moderate to severe pericardial effusion complicated by tamponade s/p pericardial window Fluid analysis showing exudative effusion suggesting infection\inflammatory cause Clarify which of the following accurately represents the acuity of the Pericardial effusion. Possible options might include: Acute Acute on chronic Compensated Chronic stable condition Remission Other (explain) Clinically unable to determine (explain) Thank you, Carmen Carvajal RN Use of terms such as suspected, likely, concern for, or probable (associated with a specific diagnosi s that is being evaluated, monitored, or treated as if it exists) are acceptable and can be coded in the inpatient se tting, when documented at the time of discharge. Please use your independent medical judgment in providing your response. THIS QUERY IS PART OF THE PERMANENT MEDICAL RECORD
[2024-05-10 15:57] LABS: Glucose, Whole Blood 218 mg/dL (60-115)
--- NOTE | 2024-05-10 18:48 | PM.PNNEP ---
Subjective Subjective Date of Service: 05/10/24 Principal diagnosis: Preoperative assessment Interval history: Seen and evaluated this morning ;more alert and interactive; POD 1 post AKA Physical Exam Vital Signs: Vital Signs: Last Vital Signs Temp 97.9 F 05/10/24 15:15 Pulse 78 05/10/24 15:15 Resp 20 05/10/24 15:15 BP 149/76 H 05/10/24 15:15 Pulse Ox 96 05/10/24 15:15 O2 Del Method Nasal Cannula 05/10/24 15:15 O2 Flow Rate 1 05/10/24 15:15 Oxygen Flow Rate 2 05/10/24 13:14 BMI result Body Mass Index 29.1 Const: General: no acute distress Eyes: EOM: EOMs intact bilaterally Neck: Neck: Yes supple Resp: Auscultation: diminished lung sounds Cardio: Rate: regular rate GI: Palpation (GI): Soft to palpation Neuro: Other: Alert Extrem: Other: R AKA Objective Data Labs 05/10/24 06:47 05/10/24 06:47 Labs: Laboratory Results - last 24 hr 05/02/24 05/02/24 05/09/24 18:47 18:48 20:31 WBC RBC Hgb Hct MCV MCH MCHC RDW Plt Count MPV Immature Gran % (Auto) Neut % (Auto) Lymph % (Auto) [place] % (Auto) Eos % (Auto) Baso % (Auto) Lymph # (Auto) [place] # (Auto) Eos # (Auto) Baso # (Auto) Abs Immat Gran (auto) Absolute Neuts (auto) Absolute Nucleated RBC Nucleated RBC % (auto) Smear Tech's Comments Sodium Potassium Chloride Carbon Dioxide Anion Gap BUN Creatinine Estim Creat Clear Calc Estimated GFR POC Glucose 204 H Random Glucose Calcium Cryoglobulin Cancelled Cryoglobulin Cryocrit Cancelled Cancelled Test Cancelled 05/10/24 05/10/24 05/10/24 06:47 07:17 11:04 WBC 23.1 H RBC 3.31 L Hgb 7.9 L Hct 25.6 L MCV 77.3 L MCH 23.9 L MCHC 30.9 L RDW 18.4 H Plt Count 321 MPV 11.2 Immature Gran % (Auto) 1.6 H Neut % (Auto) 88.8 H Lymph % (Auto) 4.6 L [place] % (Auto) 4.9 Eos % (Auto) 0.0 Baso % (Auto) 0.1 Lymph # (Auto) 1.1 L [place] # (Auto) 1.1 Eos # (Auto) 0.0 Baso # (Auto) 0.0 Abs Immat Gran (auto) 0.37 H Absolute Neuts (auto) 20.5 H Absolute Nucleated RBC 0.030 H Nucleated RBC % (auto) 0.1 Smear Tech's Comments VERIFIED Sodium 140 Potassium 4.9 Chloride 101 Carbon Dioxide 22 Anion Gap 22 H BUN 59 H Creatinine 7.19 H* Estim Creat Clear Calc 9.5 Estimated GFR 8 POC Glucose 123 H 218 H Random Glucose 120 H Calcium 9.3 Cryoglobulin Cryoglobulin Cryocrit Cancelled Test 05/10/24 15:54 WBC RBC Hgb Hct MCV MCH MCHC RDW Plt Count MPV Immature Gran % (Auto) Neut % (Auto) Lymph % (Auto) [place] % (Auto) Eos % (Auto) Baso % (Auto) Lymph # (Auto) [place] # (Auto) Eos # (Auto) Baso # (Auto) Abs Immat Gran (auto) Absolute Neuts (auto) Absolute Nucleated RBC Nucleated RBC % (auto) Smear Tech's Comments Sodium Potassium Chloride Carbon Dioxide Anion Gap BUN Creatinine Estim Creat Clear Calc Estimated GFR POC Glucose 218 H Random Glucose Calcium Cryoglobulin Cryoglobulin Cryocrit Cancelled Test Microbiology Microbiology Results: Microbiology 05/05/24 10:45 Pericardial Fluid Gram Stain - Final 05/05/24 10:45 Pericardial Fluid Anaerobic Culture - Final NO GROWTH AFTER 5 DAYS 05/05/24 10:45 Pericardial Fluid Body Fluid Culture - Final No growth after 2 days 05/03/24 Unknown Pericardial Fluid Gram Stain - Final 05/03/24 Unknown Pericardial Fluid Routine Culture - Final No growth after 2 days 05/03/24 Unknown Pericardial Fluid Anaerobic Culture - Final NO GROWTH AFTER 5 DAYS 05/01/24 17:33 Blood - Venous Blood Culture - Final No growth after 5 days. 05/01/24 16:51 Blood - Venous Blood Culture - Final No growth after 5 days. 05/03/24 Unknown Pericardial Fluid Fungal Identification - Preliminary No growth to date. Procedures Date of Service Date of Service: 05/10/24 Assessment & Plan Assessment and plan (1) ESRD needing dialysis: Status: Acute Plan Usually gets HD on MWF; Needs more UF Renal Diet( 2 Gm Na/K/ Phos restricted/fluid restriction) Phos binders with meals. C/W rest of current management Progress Note: Quality Stroke Does the patient have a stroke diagnosis?: No
[2024-05-10] MEDS: HYDROmorphone HCl 2 MG TABLET PO (18:53)
[2024-05-10] MEDS: HYDROmorphone HCl 1 MG/ML SYRINGE IVPUSH (20:12)
[2024-05-10 20:47] LABS: Glucose, Whole Blood 154 mg/dL (60-115)
[2024-05-10] MEDS: Sennosides 8.6 MG TABLET PO (22:10)
[2024-05-10] MEDS: cefTRIAXone sodium 1 GM VIAL IVPUSH (22:11)
[2024-05-10] MEDS: Midodrine HCl 10 MG TABLET PO (22:15)
[2024-05-10] MEDS: Insulin Glargine,Hum.rec.anlog 100 UNIT/ML 10 ML VIAL 18 UNIT SUBCUT (22:17)
[2024-05-10] MEDS: dilTIAZem HCL 50 MG/10 ML VIAL 10 MG IVPUSH (22:28)
--- NOTE | 2024-05-10 22:32 | P.PNID_ITS ---
Subjective Subjective Date of Service: 05/10/24 Critical Care Time (minutes): 15 Comment: He is sleeping Objective Data Labs 05/10/24 06:47 05/10/24 06:47 Labs: Laboratory Results - last 24 hr 05/02/24 05/02/24 05/10/24 18:47 18:48 06:47 WBC 23.1 H RBC 3.31 L Hgb 7.9 L Hct 25.6 L MCV 77.3 L MCH 23.9 L MCHC 30.9 L RDW 18.4 H Plt Count 321 MPV 11.2 Immature Gran % (Auto) 1.6 H Neut % (Auto) 88.8 H Lymph % (Auto) 4.6 L [place] % (Auto) 4.9 Eos % (Auto) 0.0 Baso % (Auto) 0.1 Lymph # (Auto) 1.1 L [place] # (Auto) 1.1 Eos # (Auto) 0.0 Baso # (Auto) 0.0 Abs Immat Gran (auto) 0.37 H Absolute Neuts (auto) 20.5 H Absolute Nucleated RBC 0.030 H Nucleated RBC % (auto) 0.1 Smear Tech's Comments VERIFIED Sodium 140 Potassium 4.9 Chloride 101 Carbon Dioxide 22 Anion Gap 22 H BUN 59 H Creatinine 7.19 H* Estim Creat Clear Calc 9.5 Estimated GFR 8 POC Glucose Random Glucose 120 H Calcium 9.3 Cryoglobulin Cancelled Cryoglobulin Cryocrit Cancelled Cancelled Test Cancelled 05/10/24 05/10/24 05/10/24 07:17 11:04 15:54 WBC RBC Hgb Hct MCV MCH MCHC RDW Plt Count MPV Immature Gran % (Auto) Neut % (Auto) Lymph % (Auto) [place] % (Auto) Eos % (Auto) Baso % (Auto) Lymph # (Auto) [place] # (Auto) Eos # (Auto) Baso # (Auto) Abs Immat Gran (auto) Absolute Neuts (auto) Absolute Nucleated RBC Nucleated RBC % (auto) Smear Tech's Comments Sodium Potassium Chloride Carbon Dioxide Anion Gap BUN Creatinine Estim Creat Clear Calc Estimated GFR POC Glucose 123 H 218 H 218 H Random Glucose Calcium Cryoglobulin Cryoglobulin Cryocrit Cancelled Test 05/10/24 20:36 WBC RBC Hgb Hct MCV MCH MCHC RDW Plt Count MPV Immature Gran % (Auto) Neut % (Auto) Lymph % (Auto) [place] % (Auto) Eos % (Auto) Baso % (Auto) Lymph # (Auto) [place] # (Auto) Eos # (Auto) Baso # (Auto) Abs Immat Gran (auto) Absolute Neuts (auto) Absolute Nucleated RBC Nucleated RBC % (auto) Smear Tech's Comments Sodium Potassium Chloride Carbon Dioxide Anion Gap BUN Creatinine Estim Creat Clear Calc Estimated GFR POC Glucose 154 H Random Glucose Calcium Cryoglobulin Cryoglobulin Cryocrit Cancelled Test Microbiology Microbiology Results: Microbiology 05/05/24 10:45 Pericardial Fluid Gram Stain - Final 05/05/24 10:45 Pericardial Fluid Anaerobic Culture - Final NO GROWTH AFTER 5 DAYS 05/05/24 10:45 Pericardial Fluid Body Fluid Culture - Final No growth after 2 days 05/03/24 Unknown Pericardial Fluid Gram Stain - Final 05/03/24 Unknown Pericardial Fluid Routine Culture - Final No growth after 2 days 05/03/24 Unknown Pericardial Fluid Anaerobic Culture - Final NO GROWTH AFTER 5 DAYS 05/01/24 17:33 Blood - Venous Blood Culture - Final No growth after 5 days. 05/01/24 16:51 Blood - Venous Blood Culture - Final No growth after 5 days. 05/03/24 Unknown Pericardial Fluid Fungal Identification - Preliminary No growth to date. Physical Exam 2 Vital Signs: Vital Signs: Last Vital Signs Temp 98.1 F 05/10/24 21:13 Pulse 141 H 05/10/24 21:13 Resp 18 05/10/24 21:13 BP 96/60 05/10/24 22:15 Pulse Ox 99 05/10/24 19:31 O2 Del Method Room Air 05/10/24 19:31 O2 Flow Rate 1 05/10/24 15:15 Oxygen Flow Rate 2 05/10/24 13:14 BMI result Body Mass Index 29.1 Const: General: cooperative Resp: Effort & Inspection: normal respiratory effort Cardio: Rate: regular rate Rhythm: regular rhythm Extrem: General: Yes normal to inspection Assessment and Plan Assessment and plan (1) Above knee amputation of right lower extremity: Status: Acute Plan He had AKA yesterday. He is sleeping. He still has no clincal signs of UTI. Rash may be related to hydralazine Hold all antibiotics. Time Spent With Patient Time: Total time managing care of this patient today ____ minutes.
[2024-05-11] VITALS (7 sets, daily range): BP systolic 107–159; BP diastolic 52–71; PULSE 60–77; RESP 14–20; TEMP 36–37.1; O2SAT 95–100
[2024-05-11 01:31] LABS: Anion Gap 18 (12-20); Blood Urea Nitrogen 26 mg/dL (9-16); Carbon Dioxide 28 mmol/L (22-29); Chloride 99 mmol/L (96-108); Creatinine Clr Calc Pharmacy 17.6; Estimated Glomerular Filt Rate 15; Glucose Random 219 mg/dL (60-115); Magnesium 1.9 mg/dL (1.6-2.6); Sodium 141 mmol/L (135-145)
[2024-05-11 01:46] LABS: Delay - Chemistry DELAY
[2024-05-11 01:54] LABS: Vancomycin Random 14.2 mcg/mL (15-20)
[2024-05-11] MEDS: Heparin Sodium,Porcine 5,000 UNIT/ML VIAL 5000 UNIT SUBCUT ×3 (04:14→21:02)
[2024-05-11] MEDS: Omeprazole 20 MG CAPSULE.DR PO (05:39)
[2024-05-11 07:40] LABS: MANUAL DIFF FLAG NO
[2024-05-11 07:43] LABS: Basophils Percent Auto 0.2 % (0-2); Eosinophils Percent Auto 0.1 % (0-4); Hematocrit 23.9 % (42.0-52.0); Hemoglobin 7.4 g/dl (14.0-18.0); Imm Gran Abs Auto 0.31 X10*3/uL (0.00-0.03); Imm Gran Pct Auto 1.7 % (0.0-0.4); Lymphocytes Absolute Auto 1.9 X10*3/uL (1.2-4.9); Lymphocytes Percent Auto 10.3 % (20-40); Mean Corpuscular Hemoglobin 23.7 pg (27.0-33.0); Mean Corpuscular Volume 76.6 fL (80.0-98.0); Mean Platelet Volume 11.8 fL (9.4-12.4); Monocytes Absolute Auto 1.5 X10*3/uL (0.1-1.2); Monocytes Percent Auto 8.1 % (2-11); NRBC Pct Auto 0.2 /100WBC (0.0-0.2); Neutrophils Absolute Auto 14.6 x10*3/uL (2.0-8.3); Neutrophils Percent Auto 79.6 % (45-73); Platelet Count 300 X10*3/uL (160-400); Red Blood Count 3.12 X10*6/uL (4.60-5.80); Red Cell Distribution Width 18.2 % (11.0-16.0); White Blood Count 18.3 X10*3/uL (4.8-10.8)
[2024-05-11 08:07] LABS: Anion Gap 17 (12-20); Blood Urea Nitrogen 31 mg/dL (9-16); Carbon Dioxide 29 mmol/L (22-29); Chloride 99 mmol/L (96-108); Creatinine Clr Calc Pharmacy 15.6; Estimated Glomerular Filt Rate 13; Glucose Random 108 mg/dL (60-115); Potassium 4.1 mmol/L (3.3-5.1); Sodium 141 mmol/L (135-145)
[2024-05-11 08:19] LABS: Glucose, Whole Blood 105 mg/dL (60-115)
[2024-05-11] MEDS: HYDROmorphone HCl 2 MG TABLET 1 MG PO (08:24)
[2024-05-11] MEDS: Docusate Sodium 100 MG CAPSULE PO ×2 (08:25→21:03)
[2024-05-11] MEDS: levETIRAcetam 500 MG TABLET PO ×2 (08:25→21:03)
[2024-05-11] MEDS: carvediloL 6.25 MG TABLET PO ×2 (08:25→21:03)
[2024-05-11] MEDS: Sevelamer Carbonate Tablet 800 MG TABLET 1600 MG PO ×3 (08:25→18:17)
[2024-05-11] MEDS: 0.9 % Sodium Chloride Flush 3 ML SYRINGE IVFLUSH ×3 (08:26→21:09)
[2024-05-11] MEDS: Atorvastatin Calcium 40 MG TABLET PO ×2 (08:26→10:02)
[2024-05-11] MEDS: polyethylene glycoL 3350 17 GM POWD.PACK PO (08:26)
[2024-05-11] MEDS: bisacodyL 10 MG SUPP.RECT PR (08:26)
[2024-05-11] MEDS: Fluticasone/Umeclidinium/Vilanterol 100/62.5/25 BLST.W.DEV 1 PUFF INHALE (08:29)
[2024-05-11] MEDS: amLODIPine Besylate 5 MG TABLET PO (08:30)
--- NOTE | 2024-05-11 11:23 | HO.PM.IMPN ---
Subjective Subjective Date of Service: 05/11/24 Interval History: Seen and evaluated this morning more alert and interactive having small bowel movement pain better in right leg better controlled BP Review of Systems Review of Systems: Yes all other systems are reviewed and are negative Physical Exam Vital Signs: Vital Signs: Last Vital Signs Temp 98.5 F 05/11/24 07:46 Pulse 77 05/11/24 08:33 Resp 18 05/11/24 08:33 BP 115/56 L 05/11/24 07:46 Pulse Ox 100 05/11/24 07:46 O2 Del Method Nasal Cannula 05/11/24 07:46 O2 Flow Rate 1 05/11/24 07:46 Oxygen Flow Rate 2 05/10/24 13:14 BMI result Body Mass Index 29.1 Const: Other: General resting in bed,in no acute distress. Neck supple no JVD, no distended neck veins. CVS regular rate rhythm, Respiratory lungs clear to auscultation, diminished, no respiratory distress, no wheeze, no rhonchi. Gastrointestinal abdomen soft, non tender, bowel sounds audible Extremities right BKA dressing in place Neuro non focal , speech clear. Skin non blanchable rash back, Right AKA site clean, covered with dressing, Right third finger: violaceous coloring with scabbed over prick sites noted to the left of the nail bed. Painful to palpation. Left great toe: discoloration noted to both sides of the nailbed. Not painful to palpation. Objective Data Active Medications Acetaminophen (Acetaminophen 325 Mg Tablet) 650 mg PO Q6H PRN PRN Reason: Pain, Mild 1-3,fever,headache Albuterol Sulfate (Albuterol Sulfate 90 Mcg 8 Gm Inhaler) 2 puff INHALE RQ4H PRN PRN Reason: Shortness Of Breath Albuterol/Ipratropium (Albuterol/Iprat 2.5/0.5mg 3 Ml Ampul.Neb) 3 ml INHALE RQID PRN PRN Reason: Wheezing Allopurinol (Allopurinol 100 Mg Tablet) 100 mg PO MOWEFR@1600 [facility] Last Admin: 05/10/24 22:08 Dose: Not Given Documented By: KAUSHIK Non-Admin Reason: PT IN DIALYSIS Amlodipine Besylate (Amlodipine Besylate 5 Mg Tablet) 5 mg PO DAILY [facility]; Protocol Last Admin: 05/11/24 08:30 Dose: 5 mg Documented By: MADI Atorvastatin Calcium (Atorvastatin Calcium 40 Mg Tablet) 40 mg PO MOWEFR@1600 [facility] Last Admin: 05/11/24 08:26 Dose: 40 mg Atorvastatin Calcium (Atorvastatin Calcium 40 Mg Tablet) 40 mg PO SUTUTHSA@0900 [facility] Last Admin: 05/11/24 10:02 Dose: 40 mg Documented By: MADI Bisacodyl (Bisacodyl 10 Mg Supp.Rect) 10 mg CA DAILY [facility] Last Admin: 05/11/24 08:26 Dose: 10 mg Documented By: MADI Calcium Carbonate (Calcium Carbonate 750 Mg Tab.Chew) 750 mg PO Q4H PRN PRN Reason: Heartburn Carvedilol (Carvedilol 6.25 Mg Tablet) 6.25 mg PO BID [facility]; Protocol Last Admin: 05/11/24 08:25 Dose: 6.25 mg Documented By: MADI Dextrose (Dextrose 50 % 25 Gm/50 Ml Syringe) 25 gm IVPUSH Q15M PRN; Protocol PRN Reason: per Hypoglycemia Standing Ord. Last Admin: 05/07/24 07:05 Dose: 25 gm Documented By: YAKOV-RIVLA Docusate Sodium (Docusate Sodium 100 Mg Capsule) 100 mg PO BID [facility] Last Admin: 05/11/24 08:25 Dose: 100 mg Documented By: MADI Fluticasone/Umeclidinium/Vilanterol (Fluticasone/Umeclidinium/Vilanterol 100/62.5/25 Blst.W.Dev) 1 puff INHALE RDAILY [facility] Last Admin: 05/11/24 08:29 Dose: 1 puff Documented By: JESSICA Glucose (Glucose Gel 15 Gm Gel..Gram.) 15 gm PO Q15M PRN; Protocol PRN Reason: per Hypoglycemia Standing Ord. Heparin Sodium (Porcine) (Heparin Sodium,Porcine 5,000 Unit/Ml Vial) 5,000 unit SUBCUT Q8H [facility] Last Admin: 05/11/24 04:14 Dose: 5,000 unit Documented By: TEE Hydromorphone HCl (Hydromorphone Hcl 2 Mg Tablet) 1 mg PO Q6H PRN PRN Reason: Pain, Severe (Pain Scale 7-10) Last Admin: 05/11/24 08:24 Dose: 1 mg Documented By: MADI Insulin Glargine (Insulin Glargine,Hum.Rec.Anlog 100 Unit/Ml 10 Ml Vial) 18 unit SUBCUT BEDTIME [facility] Last Admin: 05/10/24 22:17 Dose: 18 unit Documented By: KAUSHIK Insulin Human Lispro (Insulin Lispro 100 Unit/Ml 3 Ml Vial) 0 unit SUBCUT QIDACHS [facility]; Protocol Last Admin: 05/11/24 08:51 Dose: Not Given Documented By: MADI Non-Admin Reason: No Insulin Coverage Levetiracetam (Levetiracetam 500 Mg Tablet) 500 mg PO BID [facility] Last Admin: 05/11/24 08:25 Dose: 500 mg Documented By: MADI Losartan Potassium (Losartan Potassium 25 Mg Tablet) 25 mg PO BEDTIME [facility]; Protocol Last Admin: 05/10/24 22:05 Dose: Not Given Documented By: KAUSHIK Non-Admin Reason: med held per Magnesium Hydroxide (Milk Of Magnesia 30 Ml Oral.Susp) 30 ml PO DAILY PRN PRN Reason: Constipation Melatonin (Melatonin 3 Mg Tablet) 6 mg PO BEDTIME PRN PRN Reason: Insomnia Naloxone HCl (Naloxone Hcl 0.4 Mg/Ml Vial) 0.04 mg IVPUSH Q5M PRN PRN Reason: Respiratory Rate < 10 Last Admin: 05/07/24 07:37 Dose: 0.04 mg Documented By: TRI Omeprazole (Omeprazole 20 Mg Capsule.) 20 mg PO DAILY@0630 [facility] Last Admin: 05/11/24 05:39 Dose: 20 mg Documented By: TEE Ondansetron HCl (Ondansetron Hcl 4 Mg/2 Ml Vial) 4 mg IVPUSH Q8H PRN PRN Reason: Nausea and Vomiting Last Admin: 05/04/24 14:05 Dose: 4 mg Documented By: GARCIA Polyethylene Glycol (Polyethylene Glycol 3350 17 Gm Powd.Pack) 17 gm PO DAILY [facility] Last Admin: 05/11/24 08:26 Dose: 17 gm Documented By: MADI Senna (Sennosides 8.6 Mg Tablet) 8.6 mg PO BEDTIME [facility] Last Admin: 05/10/24 22:10 Dose: 8.6 mg Documented By: KAUSHIK Sevelamer Carbonate (Sevelamer Carbonate Tablet 800 Mg Tablet) 1,600 mg PO TIDWM [facility] Last Admin: 05/11/24 08:25 Dose: 1,600 mg Documented By: MADI Sodium Chloride (0.9 % Sodium Chloride Flush 3 Ml Syringe) 3 ml IVFLUSH QSHIFT [facility] Last Admin: 05/11/24 08:26 Dose: 3 ml Documented By: MADI Zinc Acetate/Diphenhydramine (Diphenhydramine Hcl 2 % Cream 28 Gm Tube) 1 appl TOPICAL TID PRN; Protocol PRN Reason: rash Last Admin: 05/08/24 23:42 Dose: 1 appl Documented By: ELISEO Labs 05/11/24 07:10 05/11/24 07:10 Labs: Laboratory Results - last 24 hr 05/02/24 05/02/24 05/10/24 18:47 18:48 15:54 MCV MCH MCHC RDW Plt Count MPV Immature Gran % (Auto) Neut % (Auto) Lymph % (Auto) [place] % (Auto) Eos % (Auto) Baso % (Auto) Lymph # (Auto) [place] # (Auto) Eos # (Auto) Baso # (Auto) Abs Immat Gran (auto) Absolute Neuts (auto) Absolute Nucleated RBC Nucleated RBC % (auto) Hold Purple Top Anion Gap Estim Creat Clear Calc Estimated GFR POC Glucose 218 H Random Glucose Calcium Magnesium Specimen Comment Random Vancomycin Cryoglobulin Cancelled Cryoglobulin Cryocrit Cancelled Cancelled Test Cancelled 05/10/24 05/11/24 05/11/24 20:36 00:44 07:10 MCV 76.6 L MCH 23.7 L MCHC 31.0 RDW 18.2 H Plt Count 300 MPV 11.8 Immature Gran % (Auto) 1.7 H Neut % (Auto) 79.6 H Lymph % (Auto) 10.3 L [place] % (Auto) 8.1 Eos % (Auto) 0.1 Baso % (Auto) 0.2 Lymph # (Auto) 1.9 [place] # (Auto) 1.5 H Eos # (Auto) 0.0 Baso # (Auto) 0.0 Abs Immat Gran (auto) 0.31 H Absolute Neuts (auto) 14.6 H Absolute Nucleated RBC 0.030 H Nucleated RBC % (auto) 0.2 Hold Purple Top SEE NOTE Anion Gap 18 17 Estim Creat Clear Calc 17.6 15.6 Estimated GFR 15 13 POC Glucose 154 H Random Glucose 219 H 108 Calcium 9.0 9.0 Magnesium 1.9 Specimen Comment DELAY Random Vancomycin 14.2 L Cryoglobulin Cryoglobulin Cryocrit Cancelled Test 05/11/24 07:43 MCV MCH MCHC RDW Plt Count MPV Immature Gran % (Auto) Neut % (Auto) Lymph % (Auto) [place] % (Auto) Eos % (Auto) Baso % (Auto) Lymph # (Auto) [place] # (Auto) Eos # (Auto) Baso # (Auto) Abs Immat Gran (auto) Absolute Neuts (auto) Absolute Nucleated RBC Nucleated RBC % (auto) Hold Purple Top Anion Gap Estim Creat Clear Calc Estimated GFR POC Glucose 105 Random Glucose Calcium Magnesium Specimen Comment Random Vancomycin Cryoglobulin Cryoglobulin Cryocrit Cancelled Test Microbiology Microbiology Results: Microbiology 05/05/24 10:45 Gram Stain - Final Pericardial Fluid Anaerobic Culture - Final NO GROWTH AFTER 5 DAYS Body Fluid Culture - Final No growth after 2 days Assessment and Plan (1) Above knee amputation of right lower extremity: Status: Acute (2) Necrotic wound of left hand: Status: Acute (3) PVD (peripheral vascular disease): Status: Acute Plan 69M PMH significant for?ESRD on HD M/W/F, insulin-dependent type 2 diabetes, peripheral vascular disease, s/p right BKA 04/[address] Cannon, seizure disorder, HFrEF, HTN, HLD, chronically on 2L home O2, GERD, and ROBERT on CPAP who presented to the ED with?rash x2 days. found to have mod severe pericardial effusion, course complicated by hemodynamic instability from tamponade, transferred to ICU, improved after pericardiocentesis, now downgraded to medical floor. 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 Generalized Rash resolving ddx: Hydralazine induced vasculitis , systemic vasculitis , small-vessel vasculitis, Anca associated ANCA vasculitides, SAIDA, cold agglutinin, total complement, cryoglobulin, hepatitis serology, antihistone antibody, HIV, ds DNA, RN OTOLARYNGOLOGY antibody pending Discontinued hydralazine One dose of empiric IV steroids given Echo showed no vegetations acute toxic metabolic encephalopathy improving due to opiates, responded to low dose narcan could be also from Keppra stop ms contin, change to po dilaudid 2mg q6h prn Moderate to severe Pericardial effusion complicated by tamponade Echocardiogram showed severe biventricular dysfunction and [id number] pericardial effusion s/p pericardial window - follow up repeat echo Fluid analysis showing exudative effusion suggesting infection\inflammatory cause Chronic hypoxic respiratory failure on 2 L of home oxygen/obstructive sleep apnea on CPAP No acute hypoxia. ESRD on HD M/W/F Continue Velphoro, Lasix, nephro consulted, Dr. Rao following Chronic anemia hematocrit stable Insulin-dependent type 2 diabetes continue Sliding-scale insulin, resume Lantus 18 units at bedtime (home dose 22 units), Diabetic diet Seizure disorder Continue Keppra HLD/PAD aspirin Peripheral neuropathy Continue pregabalin full Code DVT Prophylaxis: hep sq reason for continued hospitalization: Post AKA care, PT evaluation Quality Stroke Does the patient have a stroke diagnosis?: No VTE Prior VTE?: No VTE Risk Level:: Medical - moderate - high VTE Device Contraindication: N/A - Device Ordered VTE Drug Contraindication: Treatment Not Indicated
[2024-05-11] MEDS: Acetaminophen 325 MG TABLET 975 MG PO (13:48)
[2024-05-11] MEDS: Insulin Lispro 100 UNIT/ML 3 ML VIAL SUBCUT ×2 (18:36→21:04)
--- NOTE | 2024-05-11 20:55 | PC.NURSE ---
pt POC via freestle jose antonio that is on his left arm and approved by is [facility] at hs
[2024-05-11] MEDS: Insulin Glargine,Hum.rec.anlog 100 UNIT/ML 10 ML VIAL 18 UNIT SUBCUT (21:03)
[2024-05-11] MEDS: Losartan Potassium 25 MG TABLET PO (21:03)
[2024-05-11] MEDS: Sennosides 8.6 MG TABLET PO (21:03)
[2024-05-12 03:59] VITALS: BP 127/53; PULSE 54; RESP 16; TEMP 35.9; O2SAT 96
[2024-05-12] MEDS: Heparin Sodium,Porcine 5,000 UNIT/ML VIAL 5000 UNIT SUBCUT ×3 (06:20→21:52)
[2024-05-12] MEDS: Omeprazole 20 MG CAPSULE.DR PO (06:21)
[2024-05-12 07:09] LABS: MANUAL DIFF FLAG NO
[2024-05-12 07:20] LABS: Basophils Percent Auto 0.1 % (0-2); Eosinophils Percent Auto 0.1 % (0-4); Hematocrit 26.7 % (42.0-52.0); Hemoglobin 8.1 g/dl (14.0-18.0); Imm Gran Abs Auto 0.23 X10*3/uL (0.00-0.03); Imm Gran Pct Auto 1.3 % (0.0-0.4); Lymphocytes Absolute Auto 1.9 X10*3/uL (1.2-4.9); Lymphocytes Percent Auto 10.5 % (20-40); Mean Corpuscular HGB Conc 30.3 g/dl (31.0-36.0); Mean Corpuscular Hemoglobin 23.6 pg (27.0-33.0); Mean Corpuscular Volume 77.8 fL (80.0-98.0); Mean Platelet Volume 11.1 fL (9.4-12.4); Monocytes Absolute Auto 1.1 X10*3/uL (0.1-1.2); Monocytes Percent Auto 6.4 % (2-11); Neutrophils Absolute Auto 14.5 x10*3/uL (2.0-8.3); Neutrophils Percent Auto 81.6 % (45-73); Platelet Count 315 X10*3/uL (160-400); Red Blood Count 3.43 X10*6/uL (4.60-5.80); Red Cell Distribution Width 18.1 % (11.0-16.0); White Blood Count 17.7 X10*3/uL (4.8-10.8)
[2024-05-12 07:40] LABS: Iron 25 mcg/dL (45-160); Percent Iron Saturation 24 % (15-50); Total Iron Binding Capacity 106 mcg/dL (228-428); Unsaturated Iron Binding 81 ug/dL
--- NOTE | 2024-05-12 08:03 | PC.NURSE ---
glucose via freestyle jose antonio 2 88, no insulin indicated
[2024-05-12 08:54] LABS: Anti Nuclear Antibody Screen POSITIVE (NEGATIVE)
[2024-05-12] MEDS: amLODIPine Besylate 5 MG TABLET PO (11:23)
[2024-05-12] MEDS: Acetaminophen 325 MG TABLET 975 MG PO ×2 (11:24→15:10)
[2024-05-12] MEDS: levETIRAcetam 500 MG TABLET PO ×2 (11:24→21:50)
[2024-05-12] MEDS: Sevelamer Carbonate Tablet 800 MG TABLET 1600 MG PO ×2 (11:24→15:10)
[2024-05-12] MEDS: carvediloL 6.25 MG TABLET PO ×2 (11:25→21:50)
[2024-05-12] MEDS: Docusate Sodium 100 MG CAPSULE PO ×2 (11:25→21:52)
[2024-05-12] MEDS: Ferrous Sulfate 324 MG TABLET.DR PO (11:25)
[2024-05-12 13:00] VITALS: O2SAT 96
--- NOTE | 2024-05-12 13:27 | P.PNIM_ITS ---
Subjective Subjective Date of Service: 05/12/24 Interval History: Seen and evaluated this morning less alert and interactive, Dilaudid make him sleepy and lethargic having bowel movement not eating much pain better in right leg better controlled BP Review of Systems Review of Systems: Yes all other systems are reviewed and are negative Physical Exam 2 Vital Signs: Vital Signs: Last Vital Signs Temp 96.7 F L 05/12/24 03:59 Pulse 54 05/12/24 03:59 Resp 16 05/12/24 03:59 BP 127/53 L 05/12/24 03:59 Pulse Ox 96 05/12/24 03:59 O2 Del Method Room Air 05/12/24 03:59 O2 Flow Rate 1 05/11/24 16:00 Oxygen Flow Rate 2 05/11/24 13:00 BMI result Body Mass Index 29.1 Const: Other: General resting in bed,in no acute distress. Neck supple no JVD, no distended neck veins. CVS regular rate rhythm, Respiratory lungs clear to auscultation, diminished, no respiratory distress, no wheeze, no rhonchi. Gastrointestinal abdomen soft, non tender, bowel sounds audible Extremities right BKA dressing in place Neuro non focal , speech clear. Skin non blanchable rash back, Right AKA site clean, covered with dressing, Right third finger: violaceous coloring with scabbed over prick sites noted to the left of the nail bed. Painful to palpation. Left great toe: discoloration noted to both sides of the nailbed. Not painful to palpation. Objective Data Active Medications Acetaminophen (Acetaminophen 325 Mg Tablet) 975 mg PO QSHIFT [facility] Last Admin: 05/12/24 11:24 Dose: 975 mg Documented By: MADI Albuterol Sulfate (Albuterol Sulfate 90 Mcg 8 Gm Inhaler) 2 puff INHALE RQ4H PRN PRN Reason: Shortness Of Breath Albuterol/Ipratropium (Albuterol/Iprat 2.5/0.5mg 3 Ml Ampul.Neb) 3 ml INHALE RQID PRN PRN Reason: Wheezing Allopurinol (Allopurinol 100 Mg Tablet) 100 mg PO MOWEFR@1600 [facility] Last Admin: 05/10/24 22:08 Dose: Not Given Documented By: KAUSHIK Non-Admin Reason: PT IN DIALYSIS Amlodipine Besylate (Amlodipine Besylate 5 Mg Tablet) 5 mg PO DAILY [facility]; Protocol Last Admin: 05/12/24 11:23 Dose: 5 mg Documented By: MADI Atorvastatin Calcium (Atorvastatin Calcium 40 Mg Tablet) 40 mg PO MOWEFR@1600 [facility] Last Admin: 05/11/24 08:26 Dose: 40 mg Atorvastatin Calcium (Atorvastatin Calcium 40 Mg Tablet) 40 mg PO SUTUTHSA@0900 [facility] Last Admin: 05/11/24 10:02 Dose: 40 mg Documented By: MADI Bisacodyl (Bisacodyl 10 Mg Supp.Rect) 10 mg SC DAILY [facility] Last Admin: 05/11/24 08:26 Dose: 10 mg Documented By: MADI Calcium Carbonate (Calcium Carbonate 750 Mg Tab.Chew) 750 mg PO Q4H PRN PRN Reason: Heartburn Carvedilol (Carvedilol 6.25 Mg Tablet) 6.25 mg PO BID [facility]; Protocol Last Admin: 05/12/24 11:25 Dose: 6.25 mg Documented By: MADI Dextrose (Dextrose 50 % 25 Gm/50 Ml Syringe) 25 gm IVPUSH Q15M PRN; Protocol PRN Reason: per Hypoglycemia Standing Ord. Last Admin: 05/07/24 07:05 Dose: 25 gm Documented By: N-RIVLA Docusate Sodium (Docusate Sodium 100 Mg Capsule) 100 mg PO BID [facility] Last Admin: 05/12/24 11:25 Dose: 100 mg Documented By: MADI Ferrous Sulfate (Ferrous Sulfate 324 Mg Tablet.Dr) 324 mg PO DAILY [facility] Last Admin: 05/12/24 11:25 Dose: 324 mg Documented By: MADI Fluticasone/Umeclidinium/Vilanterol (Fluticasone/Umeclidinium/Vilanterol 100/62.5/25 Blst.W.Dev) 1 puff INHALE RDAILY [facility] Last Admin: 05/12/24 07:55 Dose: Not Given Documented By: LAUREN Non-Admin Reason: Patient Asleep Glucose (Glucose Gel 15 Gm Gel..Gram.) 15 gm PO Q15M PRN; Protocol PRN Reason: per Hypoglycemia Standing Ord. Heparin Sodium (Porcine) (Heparin Sodium,Porcine 5,000 Unit/Ml Vial) 5,000 unit SUBCUT Q8H [facility] Last Admin: 05/12/24 06:20 Dose: 5,000 unit Documented By: TEE Hydromorphone HCl (Hydromorphone Hcl 2 Mg Tablet) 0.5 mg PO Q6H PRN PRN Reason: Pain, Severe (Pain Scale 7-10) Insulin Glargine (Insulin Glargine,Hum.Rec.Anlog 100 Unit/Ml 10 Ml Vial) 18 unit SUBCUT BEDTIME [facility] Last Admin: 05/11/24 21:03 Dose: 18 unit Documented By: TEE Insulin Human Lispro (Insulin Lispro 100 Unit/Ml 3 Ml Vial) 0 unit SUBCUT QIDACHS [facility]; Protocol Last Admin: 05/12/24 10:23 Dose: Not Given Documented By: MADI Non-Admin Reason: No Insulin Coverage Levetiracetam (Levetiracetam 500 Mg Tablet) 500 mg PO BID [facility] Last Admin: 05/12/24 11:24 Dose: 500 mg Documented By: MADI Losartan Potassium (Losartan Potassium 25 Mg Tablet) 25 mg PO BEDTIME [facility]; Protocol Last Admin: 05/11/24 21:03 Dose: 25 mg Documented By: TEE Magnesium Hydroxide (Milk Of Magnesia 30 Ml Oral.Susp) 30 ml PO DAILY PRN PRN Reason: Constipation Melatonin (Melatonin 3 Mg Tablet) 6 mg PO BEDTIME PRN PRN Reason: Insomnia Naloxone HCl (Naloxone Hcl 0.4 Mg/Ml Vial) 0.04 mg IVPUSH Q5M PRN PRN Reason: Respiratory Rate < 10 Last Admin: 05/07/24 07:37 Dose: 0.04 mg Documented By: TRI Omeprazole (Omeprazole 20 Mg Capsule.Dr) 20 mg PO DAILY@0630 [facility] Last Admin: 05/12/24 06:21 Dose: 20 mg Documented By: TEE Ondansetron HCl (Ondansetron Hcl 4 Mg/2 Ml Vial) 4 mg IVPUSH Q8H PRN PRN Reason: Nausea and Vomiting Last Admin: 05/04/24 14:05 Dose: 4 mg Documented By: GARCIA Polyethylene Glycol (Polyethylene Glycol 3350 17 Gm Powd.Pack) 17 gm PO DAILY [facility] Last Admin: 05/12/24 10:24 Dose: Not Given Documented By: MADI Non-Admin Reason: loose stools Senna (Sennosides 8.6 Mg Tablet) 8.6 mg PO BEDTIME [facility] Last Admin: 05/11/24 21:03 Dose: 8.6 mg Documented By: TEE Sevelamer Carbonate (Sevelamer Carbonate Tablet 800 Mg Tablet) 1,600 mg PO TIDWM [facility] Last Admin: 05/12/24 11:24 Dose: 1,600 mg Documented By: MADI Sodium Chloride (0.9 % Sodium Chloride Flush 3 Ml Syringe) 3 ml IVFLUSH QSHIFT [facility] Last Admin: 05/11/24 21:09 Dose: 3 ml Documented By: TEE Zinc Acetate/Diphenhydramine (Diphenhydramine Hcl 2 % Cream 28 Gm Tube) 1 appl TOPICAL TID PRN; Protocol PRN Reason: rash Last Admin: 05/08/24 23:42 Dose: 1 appl Documented By: ELISEO Labs 05/12/24 06:47 05/11/24 07:10 Labs: Laboratory Results - last 24 hr 05/02/24 05/12/24 18:48 06:47 MCV 77.8 L MCH 23.6 L MCHC 30.3 L RDW 18.1 H Plt Count 315 MPV 11.1 Immature Gran % (Auto) 1.3 H Neut % (Auto) 81.6 H Lymph % (Auto) 10.5 L Sebastian % (Auto) 6.4 Eos % (Auto) 0.1 Baso % (Auto) 0.1 Lymph # (Auto) 1.9 Sebastian # (Auto) 1.1 Eos # (Auto) 0.0 Baso # (Auto) 0.0 Abs Immat Gran (auto) 0.23 H Absolute Neuts (auto) 14.5 H Absolute Nucleated RBC 0.000 Nucleated RBC % (auto) 0.0 Iron 25 L TIBC 106 L % Saturation 24 Unsat Iron Binding 81 SAIDA Screen POSITIVE A SAIDA Titer 1:80 H SAIDA Titer 2 TNP SAIDA Titer 3 TNP SAIDA Pattern A SAIDA Pattern 2 TNP SAIDA Pattern 3 TNP Assessment and Plan (1) Above knee amputation of right lower extremity: Status: Acute (2) Necrotic wound of left hand: Status: Acute (3) PVD (peripheral vascular disease): Status: Acute Plan 69M PMH significant for?ESRD on HD M/W/F, insulin-dependent type 2 diabetes, peripheral vascular disease, s/p right BKA 04/[address] Cannon, seizure disorder, HFrEF, HTN, HLD, chronically on 2L home O2, GERD, and ROBERT on CPAP who presented to the ED with?rash x2 days. found to have mod severe pericardial effusion, course complicated by hemodynamic instability from tamponade, transferred to ICU, improved after pericardiocentesis, now downgraded to medical floor. 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 Generalized Rash resolving ddx: Hydralazine induced vasculitis , systemic vasculitis , small-vessel vasculitis, Anca associated ANCA vasculitides, SAIDA, cold agglutinin, total complement, cryoglobulin, hepatitis serology, antihistone antibody, HIV, ds DNA, MANAGER [employer] antibody pending Discontinued hydralazine One dose of empiric IV steroids given Echo showed no vegetations acute toxic metabolic encephalopathy improving due to opiates, responded to low dose narcan could be also from Keppra stop ms contin, change to po dilaudid 2mg q6h prn Moderate to severe Pericardial effusion complicated by tamponade Echocardiogram showed severe biventricular dysfunction and [id number] pericardial effusion s/p pericardial window - follow up repeat echo Fluid analysis showing exudative effusion suggesting infection\inflammatory cause Chronic hypoxic respiratory failure on 2 L of home oxygen/obstructive sleep apnea on CPAP No acute hypoxia. ESRD on HD M/W/F Continue Velphoro, Lasix, nephro consulted, Dr. Rao following Chronic anemia hematocrit stable Insulin-dependent type 2 diabetes continue Sliding-scale insulin, resume Lantus 18 units at bedtime (home dose 22 units), Diabetic diet Seizure disorder Continue Keppra HLD/PAD aspirin Peripheral neuropathy Continue pregabalin full Code DVT Prophylaxis: hep sq reason for continued hospitalization: Post AKA care, PT evaluation Quality Stroke Does the patient have a stroke diagnosis?: No VTE Prior VTE?: No VTE Risk Level:: Medical - moderate - high VTE Device Contraindication: N/A - Device Ordered VTE Drug Contraindication: Treatment Not Indicated
--- NOTE | 2024-05-12 15:04 | PC.NURSE ---
glucose via freestyle jose antonio 2 188, will cover per orders
[2024-05-12] MEDS: Insulin Lispro 100 UNIT/ML 3 ML VIAL SUBCUT ×2 (15:11→18:49)
[2024-05-12] MEDS: 0.9 % Sodium Chloride Flush 3 ML SYRINGE IVFLUSH ×2 (15:17→18:50)
[2024-05-12] MEDS: Atorvastatin Calcium 40 MG TABLET PO (15:18)
[2024-05-12 15:34] VITALS: BP 115/57; PULSE 68; RESP 18; TEMP 37.3; O2SAT 98
[2024-05-12 19:37] VITALS: BP 111/55; PULSE 83; RESP 20; TEMP 37.2; O2SAT 96
[2024-05-12] MEDS: Glucose Gel 15 GM GEL..GRAM. PO (21:47)
[2024-05-12 21:50] VITALS: BP 118/67; PULSE 72
[2024-05-12] MEDS: Sennosides 8.6 MG TABLET PO (21:50)
[2024-05-12 21:51] VITALS: BP 118/67
[2024-05-12] MEDS: Losartan Potassium 25 MG TABLET PO (21:51)
[2024-05-12 22:08] LABS: Glucose, Whole Blood 43 mg/dL (60-115)
[2024-05-12 22:09] LABS: Glucose, Whole Blood 78 mg/dL (60-115)
[2024-05-13] VITALS (12 sets, daily range): BP systolic 120–178; BP diastolic 65–98; PULSE 52–81; RESP 13–20; TEMP 36–37.6; O2SAT 92–96
[2024-05-13] MEDS: 0.9 % Sodium Chloride Flush 3 ML SYRINGE IVFLUSH ×3 (01:17→22:37)
[2024-05-13] MEDS: Acetaminophen 325 MG TABLET 975 MG PO ×3 (01:19→16:56)
[2024-05-13 01:53] LABS: Glucose, Whole Blood 206 mg/dL (60-115)
[2024-05-13] MEDS: Heparin Sodium,Porcine 5,000 UNIT/ML VIAL 5000 UNIT SUBCUT ×2 (03:31→13:26)
[2024-05-13 06:07] LABS: MANUAL DIFF FLAG NO
[2024-05-13 06:16] LABS: Basophils Percent Auto 0.1 % (0-2); Eosinophils Absolute Auto 0.1 X10*3/uL (0.0-0.4); Eosinophils Percent Auto 0.4 % (0-4); Hematocrit 21.4 % (42.0-52.0); Imm Gran Abs Auto 0.12 X10*3/uL (0.00-0.03); Imm Gran Pct Auto 0.8 % (0.0-0.4); Lymphocytes Absolute Auto 2.1 X10*3/uL (1.2-4.9); Lymphocytes Percent Auto 14.1 % (20-40); Mean Corpuscular HGB Conc 31.3 g/dl (31.0-36.0); Mean Corpuscular Hemoglobin 23.9 pg (27.0-33.0); Mean Corpuscular Volume 76.4 fL (80.0-98.0); Mean Platelet Volume 11.2 fL (9.4-12.4); Monocytes Percent Auto 6.7 % (2-11); NRBC Pct Auto 0.1 /100WBC (0.0-0.2); Neutrophils Absolute Auto 11.8 x10*3/uL (2.0-8.3); Neutrophils Percent Auto 77.9 % (45-73); Platelet Count 311 X10*3/uL (160-400); Red Cell Distribution Width 17.5 % (11.0-16.0); White Blood Count 15.1 X10*3/uL (4.8-10.8)
[2024-05-13 06:20] LABS: Hemoglobin 6.7 g/dl (14.0-18.0)
--- NOTE | 2024-05-13 06:43 | PM.EVENT ---
Event Note Date of Service: 05/13/24 Event Note: hgb 6.8, ordered 1 unit Time Spent With Patient Time: Total time managing care of this patient today ____ minutes.
[2024-05-13 07:29] LABS: Glucose, Whole Blood 109 mg/dL (60-115)
[2024-05-13] MEDS: Omeprazole 20 MG CAPSULE.DR PO (07:50)
--- NOTE | 2024-05-13 08:07 | HO.POSTANES ---
Post Anesthesia Evaluation Post Anesthesia Evaluation Date of Service: 05/13/24 Vital Signs: Vital Signs Temp Pulse Resp BP Pulse Ox O2 Del Method 05/13/24 07:42 98.2 F 75 13 158/84 H 94 Room Air 05/13/24 03:11 99.6 F 77 20 155/70 H 94 Room Air 05/13/24 00:00 98.7 F 65 20 143/65 H 94 Room Air 05/12/24 21:51 118/67 05/12/24 21:50 72 118/67 Anesthesia: General LMA Mental Status: Awake Pain Control: Satisfactory Nausea/Vomiting: None Hydration: Adequate Anesthesia-Related Issues: No Anes. Related Issues
[2024-05-13] MEDS: Fluticasone/Umeclidinium/Vilanterol 100/62.5/25 BLST.W.DEV 1 PUFF INHALE (08:10)
--- NOTE | 2024-05-13 09:00 | MHC.CM.PN ---
Addendum entered by Julia Muñoz RN 05/13/24 09:03: PT WILL NEED TO BE ABLE TO WORK WITH PT, UNABLE TO BE SEEN SO FAR TODAY D/T LOW H&H. Original Note: EMR REVIEWED, PT S/P RIGHT AKA, DROP IN H&H THIS AM AND PLAN FOR TRANSFUSION TODAY, PT HAS [facility] AND [facility] FOLLOWING FOR BED AVAILABILITY, REF UPDATED AND EXPANDED TO [facility]/ANUSHKA, [facility] WILL CONT TO FOLLOW DC NEEDS.
--- NOTE | 2024-05-13 11:36 | W.PM.DNNEP ---
Subjective Subjective Date of Service: 05/13/24 Principal diagnosis: End stage renal disease This patient was seen during dialysis. Interval history: Events noted. Physical Exam Vital Signs: Vital Signs: Last Vital Signs Temp 97.7 F 05/13/24 11:03 Pulse 69 05/13/24 11:03 Resp 18 05/13/24 11:03 BP 142/66 H 05/13/24 11:03 Pulse Ox 94 05/13/24 07:42 O2 Del Method Room Air 05/13/24 07:42 O2 Flow Rate 1 05/11/24 16:00 Oxygen Flow Rate 2 05/11/24 13:00 BMI result Body Mass Index 29.1 Const: General: ill appearing Eyes: EOM: EOMs intact bilaterally Neck: Neck: Yes supple Resp: Auscultation: clear to auscultation bilaterally Cardio: Palpation: no palpable S3 Rate: regular rate Heart sounds: no rubs GI: Palpation (GI): Soft to palpation Auscultation: normal bowel sounds Neuro: Other: Alert General: moves all extremities Motor exam (neuro): no asterixis Extrem: Other: R AKA Assessment & Plan Assessment and plan (1) ESRD needing dialysis: Status: Acute Plan Usually gets HD on MWF; Needs more UF No signs or symptoms of uremia Renal Diet( 2 Gm Na/K/ Phos restricted/fluid restriction) Peripheral as disease Status post right AKA Phos binders with meals. 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 Procedures Date of Service Date of Service: 05/14/24
--- NOTE | 2024-05-13 11:44 | P.PNIM_ITS ---
Subjective Subjective Date of Service: 05/13/24 Interval History: Seen and evaluated this morning alert and interactive having bowel movement not eating much pain better in right leg better controlled BP Review of Systems Review of Systems: Yes all other systems are reviewed and are negative Physical Exam 2 Vital Signs: Vital Signs: Last Vital Signs Temp 97.7 F 05/13/24 11:03 Pulse 69 05/13/24 11:03 Resp 18 05/13/24 11:03 BP 142/66 H 05/13/24 11:03 Pulse Ox 94 05/13/24 07:42 O2 Del Method Room Air 05/13/24 07:42 O2 Flow Rate 1 05/11/24 16:00 Oxygen Flow Rate 2 05/11/24 13:00 BMI result Body Mass Index 29.1 Const: Other: General resting in bed,in no acute distress. Neck supple no JVD, no distended neck veins. CVS regular rate rhythm, Respiratory lungs clear to auscultation, diminished, no respiratory distress, no wheeze, no rhonchi. Gastrointestinal abdomen soft, non tender, bowel sounds audible Extremities right BKA dressing in place Neuro non focal , speech clear. Skin non blanchable rash back, Right AKA site clean, covered with dressing, Right third finger: violaceous coloring with scabbed over prick sites noted to the left of the nail bed. Painful to palpation. Left great toe: discoloration noted to both sides of the nailbed. Not painful to palpation. Objective Data Active Medications Acetaminophen (Acetaminophen 325 Mg Tablet) 975 mg PO QSHIFT [facility] Last Admin: 05/13/24 01:19 Dose: 975 mg Documented By: CARLOS Albuterol Sulfate (Albuterol Sulfate 90 Mcg 8 Gm Inhaler) 2 puff INHALE RQ4H PRN PRN Reason: Shortness Of Breath Albuterol/Ipratropium (Albuterol/Iprat 2.5/0.5mg 3 Ml Ampul.Neb) 3 ml INHALE RQID PRN PRN Reason: Wheezing Allopurinol (Allopurinol 100 Mg Tablet) 100 mg PO MOWEFR@1600 [facility] Last Admin: 05/10/24 22:08 Dose: Not Given Documented By: KAUSHIK Non-Admin Reason: PT IN DIALYSIS Amlodipine Besylate (Amlodipine Besylate 5 Mg Tablet) 5 mg PO DAILY [facility]; Protocol Last Admin: 05/12/24 11:23 Dose: 5 mg Documented By: MADI Atorvastatin Calcium (Atorvastatin Calcium 40 Mg Tablet) 40 mg PO MOWEFR@1600 [facility] Last Admin: 05/11/24 08:26 Dose: 40 mg Atorvastatin Calcium (Atorvastatin Calcium 40 Mg Tablet) 40 mg PO SUTUTHSA@0900 [facility] Last Admin: 05/12/24 15:18 Dose: 40 mg Documented By: MADI Bisacodyl (Bisacodyl 10 Mg Supp.Rect) [address] DAILY [facility] Last Admin: 05/12/24 15:17 Dose: Not Given Documented By: MADI Non-Admin Reason: not appropriat Calcium Carbonate (Calcium Carbonate 750 Mg Tab.Chew) 750 mg PO Q4H PRN PRN Reason: Heartburn Carvedilol (Carvedilol 6.25 Mg Tablet) 6.25 mg PO BID [facility]; Protocol Last Admin: 05/12/24 21:50 Dose: 6.25 mg Documented By: KAUSHIK Dextrose (Dextrose 50 % 25 Gm/50 Ml Syringe) 25 gm IVPUSH Q15M PRN; Protocol PRN Reason: per Hypoglycemia Standing Ord. Last Admin: 05/07/24 07:05 Dose: 25 gm Documented By: YAKOV-RIVRIGOBERTO Docusate Sodium (Docusate Sodium 100 Mg Capsule) 100 mg PO BID [facility] Last Admin: 05/12/24 21:52 Dose: 100 mg Documented By: KAUSHIK Epoetin Keegan-epbx (Epoetin Keegan-Epbx 10,000 Unit/Ml Vial) 10,000 unit SUBCUT MoWeFr@1645 [facility] Ferrous Sulfate (Ferrous Sulfate 324 Mg Tablet.Dr) 324 mg PO DAILY [facility] Last Admin: 05/12/24 11:25 Dose: 324 mg Documented By: MADI Fluticasone/Umeclidinium/Vilanterol (Fluticasone/Umeclidinium/Vilanterol 100/62.5/25 Blst.W.Dev) 1 puff INHALE RDAILY [facility] Last Admin: 05/13/24 08:10 Dose: 1 puff Documented By: EVENS Glucose (Glucose Gel 15 Gm Gel..Gram.) 15 gm PO Q15M PRN; Protocol PRN Reason: per Hypoglycemia Standing Ord. Last Admin: 05/12/24 21:47 Dose: 15 gm Documented By: KAUSHIK Heparin Sodium (Porcine) (Heparin Sodium,Porcine 5,000 Unit/Ml Vial) 5,000 unit SUBCUT Q8H [facility] Last Admin: 05/13/24 03:31 Dose: 5,000 unit Documented By: CARLOS Hydromorphone HCl (Hydromorphone Hcl 2 Mg Tablet) 0.5 mg PO Q6H PRN PRN Reason: Pain, Severe (Pain Scale 7-10) Insulin Glargine (Insulin Glargine,Hum.Rec.Anlog 100 Unit/Ml 10 Ml Vial) 18 unit SUBCUT BEDTIME [facility] Last Admin: 05/12/24 23:20 Dose: Not Given Documented By: KAUSHIK Non-Admin Reason: HOLD per BS 73 Insulin Human Lispro (Insulin Lispro 100 Unit/Ml 3 Ml Vial) 0 unit SUBCUT QIDACHS [facility]; Protocol Last Admin: 05/13/24 07:41 Dose: Not Given Documented By: THUAN Non-Admin Reason: No Insulin Coverage Levetiracetam (Levetiracetam 500 Mg Tablet) 500 mg PO BID [facility] Last Admin: 05/12/24 21:50 Dose: 500 mg Documented By: KAUSHIK Losartan Potassium (Losartan Potassium 25 Mg Tablet) 25 mg PO BEDTIME [facility]; Protocol Last Admin: 05/12/24 21:51 Dose: 25 mg Documented By: KAUSHIK Magnesium Hydroxide (Milk Of Magnesia 30 Ml Oral.Susp) 30 ml PO DAILY PRN PRN Reason: Constipation Melatonin (Melatonin 3 Mg Tablet) 6 mg PO BEDTIME PRN PRN Reason: Insomnia Naloxone HCl (Naloxone Hcl 0.4 Mg/Ml Vial) 0.04 mg IVPUSH Q5M PRN PRN Reason: Respiratory Rate < 10 Last Admin: 05/07/24 07:37 Dose: 0.04 mg Documented By: TRI Omeprazole (Omeprazole 20 Mg Capsule.) 20 mg PO DAILY@0630 [facility] Last Admin: 05/13/24 07:50 Dose: 20 mg Documented By: CARLOS Ondansetron HCl (Ondansetron Hcl 4 Mg/2 Ml Vial) 4 mg IVPUSH Q8H PRN PRN Reason: Nausea and Vomiting Last Admin: 05/04/24 14:05 Dose: 4 mg Documented By: GARCIA Polyethylene Glycol (Polyethylene Glycol 3350 17 Gm Powd.Pack) 17 gm PO DAILY [facility] Last Admin: 05/12/24 10:24 Dose: Not Given Documented By: MADI Non-Admin Reason: loose stools Senna (Sennosides 8.6 Mg Tablet) 8.6 mg PO BEDTIME [facility] Last Admin: 05/12/24 21:50 Dose: 8.6 mg Documented By: KAUSHIK Sevelamer Carbonate (Sevelamer Carbonate Tablet 800 Mg Tablet) 1,600 mg PO TIDWM [facility] Last Admin: 05/12/24 15:40 Dose: Not Given Documented By: MADI Non-Admin Reason: patient refused am dose ad timing now off Sodium Chloride (0.9 % Sodium Chloride Flush 3 Ml Syringe) 3 ml IVFLUSH QSHIFT [facility] Last Admin: 05/13/24 01:17 Dose: 3 ml Documented By: CARLOS Zinc Acetate/Diphenhydramine (Diphenhydramine Hcl 2 % Cream 28 Gm Tube) 1 appl TOPICAL TID PRN; Protocol PRN Reason: rash Last Admin: 05/08/24 23:42 Dose: 1 appl Documented By: ELISEO Labs 05/13/24 05:57 05/11/24 07:10 Labs: Laboratory Results - last 24 hr 05/02/24 05/12/24 05/12/24 18:48 21:43 22:05 MCV MCH MCHC RDW Plt Count MPV Immature Gran % (Auto) Neut % (Auto) Lymph % (Auto) [place] % (Auto) Eos % (Auto) Baso % (Auto) Lymph # (Auto) [place] # (Auto) Eos # (Auto) Baso # (Auto) Abs Immat Gran (auto) Absolute Neuts (auto) Absolute Nucleated RBC Nucleated RBC % (auto) POC Glucose 43 L* 78 SAIDA Titer 2 TNP SAIDA Titer 3 TNP SAIDA Pattern 2 TNP SAIDA Pattern 3 TNP Blood Type Antibody Screen Crossmatch 05/13/24 05/13/24 05/13/24 01:48 05:57 07:23 MCV 76.4 L MCH 23.9 L MCHC 31.3 RDW 17.5 H Plt Count 311 MPV 11.2 Immature Gran % (Auto) 0.8 H Neut % (Auto) 77.9 H Lymph % (Auto) 14.1 L [place] % (Auto) 6.7 Eos % (Auto) 0.4 Baso % (Auto) 0.1 Lymph # (Auto) 2.1 [place] # (Auto) 1.0 Eos # (Auto) 0.1 Baso # (Auto) 0.0 Abs Immat Gran (auto) 0.12 H Absolute Neuts (auto) 11.8 H Absolute Nucleated RBC 0.020 H Nucleated RBC % (auto) 0.1 POC Glucose 206 H 109 SAIDA Titer 2 SAIDA Titer 3 SAIDA Pattern 2 SAIDA Pattern 3 Blood Type Antibody Screen Crossmatch 05/13/24 08:36 MCV MCH MCHC RDW Plt Count MPV Immature Gran % (Auto) Neut % (Auto) Lymph % (Auto) [place] % (Auto) Eos % (Auto) Baso % (Auto) Lymph # (Auto) [place] # (Auto) Eos # (Auto) Baso # (Auto) Abs Immat Gran (auto) Absolute Neuts (auto) Absolute Nucleated RBC Nucleated RBC % (auto) POC Glucose SAIDA Titer 2 SAIDA Titer 3 SAIDA Pattern 2 SAIDA Pattern 3 Blood Type A Positive Antibody Screen NEGATIVE Crossmatch See Detail Microbiology Microbiology Results: Microbiology 05/03/24 Unknown Fungal Identification - Preliminary Pericardial Fluid No growth after 1 week. 05/03/24 Unknown Direct Acid Fast Bacilli Smear - Final Pericardial Fluid Assessment and Plan (1) Above knee amputation of right lower extremity: Status: Acute (2) Necrotic wound of left hand: Status: Acute (3) Acute on chronic anemia: Status: Acute Plan 69M PMH significant for?ESRD on HD M/W/F, insulin-dependent type 2 diabetes, peripheral vascular disease, s/p right BKA 04/[address] Cannon, seizure disorder, HFrEF, HTN, HLD, chronically on 2L home O2, GERD, and ROBERT on CPAP who presented to the ED with?rash x2 days. found to have mod severe pericardial effusion, course complicated by hemodynamic instability from tamponade, transferred to ICU, improved after pericardiocentesis, now downgraded to medical floor. 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 Generalized Rash resolving ddx: Hydralazine induced vasculitis , systemic vasculitis , small-vessel vasculitis, Anca associated ANCA vasculitides, SAIDA, cold agglutinin, total complement, cryoglobulin, hepatitis serology, antihistone antibody, HIV, ds DNA, T[employer]ING [employer] HELPER antibody pending Discontinued hydralazine One dose of empiric IV steroids given Echo showed no vegetations acute toxic metabolic encephalopathy improving due to opiates, responded to low dose narcan could be also from Keppra stop ms contin, change to po dilaudid 2mg q6h prn Moderate to severe Pericardial effusion complicated by tamponade Echocardiogram showed severe biventricular dysfunction and [id number] pericardial effusion s/p pericardial window - follow up repeat echo Fluid analysis showing exudative effusion suggesting infection\inflammatory cause Chronic hypoxic respiratory failure on 2 L of home oxygen/obstructive sleep apnea on CPAP No acute hypoxia. ESRD on HD M/W/F Continue VelphJessica flores, nephro consulted, Dr. Rao following Chronic anemia hematocrit stable Insulin-dependent type 2 diabetes continue Sliding-scale insulin, resume Lantus 18 units at bedtime (home dose 22 units), Diabetic diet Seizure disorder Continue Keppra HLD/PAD aspirin Peripheral neuropathy Continue pregabalin full Code DVT Prophylaxis: hep sq reason for continued hospitalization: Post AKA care, PT evaluation , anemia monitoring and blood transfusion Quality Stroke Does the patient have a stroke diagnosis?: No VTE Prior VTE?: No VTE Risk Level:: Medical - moderate - high VTE Device Contraindication: N/A - Device Ordered VTE Drug Contraindication: Treatment Not Indicated
[2024-05-13] MEDS: Ferrous Sulfate 324 MG TABLET.DR PO (13:18)
[2024-05-13] MEDS: amLODIPine Besylate 5 MG TABLET PO (13:18)
[2024-05-13] MEDS: levETIRAcetam 500 MG TABLET PO ×2 (13:18→22:35)
[2024-05-13] MEDS: carvediloL 6.25 MG TABLET PO ×2 (13:18→22:36)
[2024-05-13 13:20] LABS: Glucose, Whole Blood 119 mg/dL (60-115)
[2024-05-13] MEDS: Sevelamer Carbonate Tablet 800 MG TABLET 1600 MG PO ×2 (13:26→16:40)
--- NOTE | 2024-05-13 13:29 | P.PNVS_ITS ---
Subjective Subjective Date of Service: 05/13/24 Interval history: Beau is doing ok this morning. We saw him while he was having his dialysis done. He states he does not want any pain medications. He denies any pain at the AKA site. Physical Exam Vital Signs: Vital Signs: Last Vital Signs Temp 98.4 F 05/13/24 13:05 Pulse 72 05/13/24 13:05 Resp 15 05/13/24 13:05 BP 120/65 05/13/24 13:05 Pulse Ox 94 05/13/24 13:05 O2 Del Method Room Air 05/13/24 13:05 O2 Flow Rate 1 05/11/24 16:00 Oxygen Flow Rate 2 05/11/24 13:00 BMI result Body Mass Index 29.1 Const: General: comfortable and no acute distress Orientation/cons ciousness: patient oriented x3 HEENT: Ears: hearing grossly normal bilaterally Resp: Effort & Inspection: normal respiratory effort and able to speak in complete sentences Auscultation: clear to auscultation bilaterally Cardio: Rate: regular rate Rhythm: regular rhythm Heart sounds: S1 normal heart sound present and S2 normal heart sound present Bruits: no abdominal aortic bruits, no carotid bruits, no femoral bruits and no renal bruits GI: Palpation (GI): No Abdominal aortic bruit present Neuro: General: patient oriented x3 Cranial nerves: Yes CN's II-XII intact bilaterally Extrem: Other: Right AKA site: C/D/I. No erythema noted. Not painful to palpation Right third finger: violaceous coloring with scabbed over prick sites noted to the left of the nail bed. Painful to palpation. Left great toe: dry gangrene noted on both sides of the toenail, not worsening Progress Note: A&P Assessment and plan (1) Above knee amputation of right lower extremity: Status: Acute Assessment and Plan: Beau is post op day 4 s/p right AKA. He has been doing better. He denies any pain at the site and states he does not want any more pain medications. The dressings continue to fall off. The site is C/D/I and looks great. He was noted to have a drop in H/H this morning and was given 1u pRBCs. He continues with HD on //. We will continue to monitor. If there are any questions or concerns, please do not hesitate to reach out to us. Time Spent With Patient Time: Total time managing care of this patient today ____ minutes. Procedures Date of Service Date of Service: 05/13/24 Quality Stroke Does the patient have a stroke diagnosis?: No VTE Prior VTE?: No VTE Risk Level:: Medical - moderate - high VTE Device Contraindication: N/A - Device Ordered VTE Drug Contraindication: Treatment Not Indicated
[2024-05-13 14:24] LABS: Hematocrit 27.1 % (42.0-52.0); Hemoglobin 8.5 g/dl (14.0-18.0); Mean Corpuscular HGB Conc 31.4 g/dl (31.0-36.0); Mean Corpuscular Hemoglobin 24.6 pg (27.0-33.0); Mean Corpuscular Volume 78.3 fL (80.0-98.0); Platelet Count 315 X10*3/uL (160-400); Red Blood Count 3.46 X10*6/uL (4.60-5.80); Red Cell Distribution Width 18.2 % (11.0-16.0); White Blood Count 13.2 X10*3/uL (4.8-10.8)
[2024-05-13 15:57] LABS: Glucose, Whole Blood 157 mg/dL (60-115)
[2024-05-13] MEDS: Atorvastatin Calcium 40 MG TABLET PO (16:40)
[2024-05-13] MEDS: Insulin Lispro 100 UNIT/ML 3 ML VIAL SUBCUT (16:40)
[2024-05-13] MEDS: allopurinoL 100 MG TABLET PO (16:40)
[2024-05-13] MEDS: Epoetin Alfa-epbx 10,000 UNIT/ML VIAL 10000 UNIT SUBCUT (17:35)
[2024-05-13 21:22] LABS: Glucose, Whole Blood 183 mg/dL (60-115)
[2024-05-13] MEDS: Melatonin 3 MG TABLET 6 MG PO (22:35)
[2024-05-13] MEDS: Losartan Potassium 25 MG TABLET PO (22:36)
[2024-05-13] MEDS: Sennosides 8.6 MG TABLET PO (22:36)
[2024-05-13] MEDS: Docusate Sodium 100 MG CAPSULE PO (22:36)
[2024-05-14] VITALS (8 sets, daily range): BP systolic 131–177; BP diastolic 58–81; PULSE 65–82; RESP 15–20; TEMP 36.4–37.2; O2SAT 94–100
--- NOTE | 2024-05-14 01:47 | PC.NURSE ---
RN spoke with pt via in person public works director and pt stated he did not want to have any insulin this evening even though his glucose was 183. RN educated the patient on the importance of taking his insulin and listened to the pts concerns regarding why he does not want to take it. Pt also states he does not want to take any pain medication even though he is in pain. RN educated pt on importance of taking pain medication as well however pt still did not want any. RN will continue to periodically offer PRN and scheduled pain medication throughout shift. made aware
[2024-05-14 06:39] LABS: MANUAL DIFF FLAG NO
[2024-05-14 06:44] LABS: Basophils Percent Auto 0.2 % (0-2); Eosinophils Absolute Auto 0.1 X10*3/uL (0.0-0.4); Eosinophils Percent Auto 0.6 % (0-4); Hematocrit 27.4 % (42.0-52.0); Hemoglobin 8.5 g/dl (14.0-18.0); Imm Gran Abs Auto 0.12 X10*3/uL (0.00-0.03); Lymphocytes Absolute Auto 1.8 X10*3/uL (1.2-4.9); Lymphocytes Percent Auto 14.6 % (20-40); Mean Corpuscular Hemoglobin 24.6 pg (27.0-33.0); Mean Corpuscular Volume 79.2 fL (80.0-98.0); Mean Platelet Volume 10.7 fL (9.4-12.4); Monocytes Absolute Auto 0.9 X10*3/uL (0.1-1.2); Monocytes Percent Auto 6.9 % (2-11); Neutrophils Absolute Auto 9.6 x10*3/uL (2.0-8.3); Neutrophils Percent Auto 76.7 % (45-73); Platelet Count 331 X10*3/uL (160-400); Red Blood Count 3.46 X10*6/uL (4.60-5.80); Red Cell Distribution Width 17.7 % (11.0-16.0); White Blood Count 12.5 X10*3/uL (4.8-10.8)
[2024-05-14 07:05] LABS: Glucose, Whole Blood 106 mg/dL (60-115)
[2024-05-14] MEDS: carvediloL 6.25 MG TABLET PO ×2 (08:34→20:04)
[2024-05-14] MEDS: Sevelamer Carbonate Tablet 800 MG TABLET 1600 MG PO ×3 (08:34→16:31)
[2024-05-14] MEDS: Acetaminophen 325 MG TABLET 975 MG PO ×2 (08:34→16:30)
[2024-05-14] MEDS: amLODIPine Besylate 5 MG TABLET PO (08:35)
[2024-05-14] MEDS: Ferrous Sulfate 324 MG TABLET.DR PO (08:37)
[2024-05-14] MEDS: Atorvastatin Calcium 40 MG TABLET PO (08:37)
[2024-05-14] MEDS: levETIRAcetam 500 MG TABLET PO ×2 (08:37→20:04)
--- NOTE | 2024-05-14 08:50 | P.PNVS_ITS ---
Subjective Subjective Date of Service: 05/14/24 Interval history: Beau is doing well this morning. He is working with PT. He has refused any narcotic pain medications and states he is feeling much better. He denies any pain at the AKA site. He is eating, drinking, and sleeping well. He has no new concerns this morning. He does continue to take off the AKA dressing. Physical Exam Vital Signs: Vital Signs: Last Vital Signs Temp 98.5 F 05/14/24 07:05 Pulse 79 05/14/24 07:05 Resp 15 05/14/24 07:05 BP 136/59 L 05/14/24 07:05 Pulse Ox 96 05/14/24 07:05 O2 Del Method Room Air 05/14/24 07:05 O2 Flow Rate 2 05/14/24 03:00 Oxygen Flow Rate 2 05/11/24 13:00 BMI result Body Mass Index 29.1 Const: General: comfortable and no acute distress Orientation/consciousness: patient oriented x3 HEENT: Ears: hearing grossly normal bilaterally Resp: Effort & Inspection: normal respiratory effort and able to speak in complete sentences Auscultation: clear to auscultation bilaterally Cardio: Rate: regular rate Rhythm: regular rhythm Heart sounds: S1 normal heart sound present and S2 normal heart sound present Bruits: no abdominal aortic bruits, no carotid bruits, no femoral bruits and no renal bruits GI: Palpation (GI): No Abdominal aortic bruit present Neuro: General: patient oriented x3 Cranial nerves: Yes CN's II-XII intact bilaterally Extrem: Other: Right AKA site: C/D/I. No erythema noted. Sutures and [place] intact. Progress Note: A&P Assessment and plan (1) Above knee amputation of right lower extremity: Status: Acute Assessment and Plan: Beau is doing well this morning. He does not appear confused and is smiling and laughing with staff. He is working with PT this morning. He does continue to take the dressing off; the site looks great. We discussed, with the information management specialist, to keep the dressing on. The pt states he will not take the narcotic pain medication anymore. We are encouraging him to take the Tylenol as needed. We will continue to monitor. If there are any questions or concerns, please do not hesitate to reach out to us. Time Spent With Patient Time: Total time managing care of this patient today ____ minutes. Procedures Date of Service Date of Service: 05/14/24 Quality Stroke Does the patient have a stroke diagnosis?: No VTE Prior VTE?: No VTE Risk Level:: Medical - moderate - high VTE Device Contraindication: N/A - Device Ordered VTE Drug Contraindication: Treatment Not Indicated
[2024-05-14] MEDS: 0.9 % Sodium Chloride Flush 3 ML SYRINGE IVFLUSH ×3 (08:53→20:10)
[2024-05-14] MEDS: Pregabalin 50 MG CAPSULE PO (09:55)
--- NOTE | 2024-05-14 11:25 | P.PNNP_ITS ---
Subjective Subjective Date of Service: 05/14/24 Principal diagnosis: End stage renal disease Interval history: Seen and evaluated this morning alert and interactive having bowel movement not eating much pain better in right leg better controlled BP Physical Exam 2 Vital Signs: Vital Signs: Last Vital Signs Temp 98.4 F 05/14/24 11:11 Pulse 65 05/14/24 11:11 Resp 15 05/14/24 11:11 BP 131/58 L 05/14/24 11:11 Pulse Ox 97 05/14/24 11:11 O2 Del Method Room Air 05/14/24 11:11 O2 Flow Rate 2 05/14/24 03:00 Oxygen Flow Rate 2 05/11/24 13:00 BMI result Body Mass Index 29.1 Const: General: no acute distress and ill appearing Eyes: EOM: EOMs intact bilaterally Neck: Neck: Yes supple Resp: Auscultation: clear to auscultation bilaterally and diminished lung sounds Cardio: Palpation: no palpable S3 Rate: regular rate Heart sounds: no rubs GI: Palpation (GI): Soft to palpation Auscultation: normal bowel sounds Neuro: Other: Alert General: moves all extremities Motor exam (neuro): no asterixis Extrem: Other: R AKA Objective Data Labs 05/14/24 06:05 05/11/24 07:10 Labs: Laboratory Results - last 24 hr 05/13/24 05/13/24 05/13/24 08:36 13:15 14:15 WBC 13.2 H RBC 3.46 L D Hgb 8.5 L D Hct 27.1 L D MCV 78.3 L MCH 24.6 L MCHC 31.4 RDW 18.2 H Plt Count 315 MPV 11.0 Immature Gran % (Auto) Neut % (Auto) Lymph % (Auto) [place] % (Auto) Eos % (Auto) Baso % (Auto) Lymph # (Auto) [place] # (Auto) Eos # (Auto) Baso # (Auto) Abs Immat Gran (auto) Absolute Neuts (auto) Absolute Nucleated RBC 0.000 Nucleated RBC % (auto) 0.0 POC Glucose 119 H Crossmatch See Detail 05/13/24 05/13/24 05/14/24 15:41 21:13 06:05 WBC 12.5 H RBC 3.46 L Hgb 8.5 L Hct 27.4 L MCV 79.2 L MCH 24.6 L MCHC 31.0 RDW 17.7 H Plt Count 331 MPV 10.7 Immature Gran % (Auto) 1.0 H Neut % (Auto) 76.7 H Lymph % (Auto) 14.6 L [place] % (Auto) 6.9 Eos % (Auto) 0.6 Baso % (Auto) 0.2 Lymph # (Auto) 1.8 [place] # (Auto) 0.9 Eos # (Auto) 0.1 Baso # (Auto) 0.0 Abs Immat Gran (auto) 0.12 H Absolute Neuts (auto) 9.6 H Absolute Nucleated RBC 0.000 Nucleated RBC % (auto) 0.0 POC Glucose 157 H 183 H Crossmatch 05/14/24 07:01 WBC RBC Hgb Hct MCV MCH MCHC RDW Plt Count MPV Immature Gran % (Auto) Neut % (Auto) Lymph % (Auto) [place] % (Auto) Eos % (Auto) Baso % (Auto) Lymph # (Auto) [place] # (Auto) Eos # (Auto) Baso # (Auto) Abs Immat Gran (auto) Absolute Neuts (auto) Absolute Nucleated RBC Nucleated RBC % (auto) POC Glucose 106 Crossmatch Microbiology Microbiology Results: Microbiology 05/03/24 Unknown Pericardial Fluid Fungal Identification - Preliminary No growth after 1 week. 05/03/24 Unknown Pericardial Fluid Direct Acid Fast Bacilli Smear - Final 05/05/24 10:45 Pericardial Fluid Gram Stain - Final 05/05/24 10:45 Pericardial Fluid Anaerobic Culture - Final NO GROWTH AFTER 5 DAYS 05/05/24 10:45 Pericardial Fluid Body Fluid Culture - Final No growth after 2 days 05/03/24 Unknown Pericardial Fluid Gram Stain - Final 05/03/24 Unknown Pericardial Fluid Routine Culture - Final No growth after 2 days 05/03/24 Unknown Pericardial Fluid Anaerobic Culture - Final NO GROWTH AFTER 5 DAYS 05/01/24 17:33 Blood - Venous Blood Culture - Final No growth after 5 days. 05/01/24 16:51 Blood - Venous Blood Culture - Final No growth after 5 days. Procedures Date of Service Date of Service: 05/20/24 Assessment & Plan Assessment and plan (1) ESRD needing dialysis: Status: Acute Plan Usually gets HD on MWF; Needs more UF No signs or symptoms of uremia Renal Diet( 2 Gm Na/K/ Phos restricted/fluid restriction) Peripheral as disease Status post right AKA Phos binders with meals. 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 Progress Note: Quality Stroke Does the patient have a stroke diagnosis?: No
--- NOTE | 2024-05-14 11:27 | P.PNIM_ITS ---
Subjective Subjective Date of Service: 05/14/24 Interval History: Seen and evaluated this morning alert and interactive having bowel movement pain better in right leg better controlled BP Review of Systems Review of Systems: Yes all other systems are reviewed and are negative Physical Exam 2 Vital Signs: Vital Signs: Last Vital Signs Temp 98.4 F 05/14/24 11:11 Pulse 65 05/14/24 11:11 Resp 15 05/14/24 11:11 BP 131/58 L 05/14/24 11:11 Pulse Ox 97 05/14/24 11:11 O2 Del Method Room Air 05/14/24 11:11 O2 Flow Rate 2 05/14/24 03:00 Oxygen Flow Rate 2 05/11/24 13:00 BMI result Body Mass Index 29.1 Const: Other: General resting in bed,in no acute distress. Neck supple no JVD, no distended neck veins. CVS regular rate rhythm, Respiratory lungs clear to auscultation, diminished, no respiratory distress, no wheeze, no rhonchi. Gastrointestinal abdomen soft, non tender, bowel sounds audible Extremities right BKA dressing in place Neuro non focal , speech clear. Skin non blanchable rash back, Right AKA site clean, covered with dressing, Right third finger: violaceous coloring with scabbed over prick sites noted to the left of the nail bed. Painful to palpation. Left great toe: discoloration noted to both sides of the nailbed. Not painful to palpation. Objective Data Active Medications Acetaminophen (Acetaminophen 325 Mg Tablet) 975 mg PO QSHIFT [facility] Last Admin: 05/14/24 08:34 Dose: 975 mg Documented By: THUAN Albuterol Sulfate (Albuterol Sulfate 90 Mcg 8 Gm Inhaler) 2 puff INHALE RQ4H PRN PRN Reason: Shortness Of Breath Albuterol/Ipratropium (Albuterol/Iprat 2.5/0.5mg 3 Ml Ampul.Neb) 3 ml INHALE RQID PRN PRN Reason: Wheezing Allopurinol (Allopurinol 100 Mg Tablet) 100 mg PO MOWEFR@1600 [facility] Last Admin: 05/13/24 16:40 Dose: 100 mg Documented By: THUAN Amlodipine Besylate (Amlodipine Besylate 5 Mg Tablet) 5 mg PO DAILY [facility]; Protocol Last Admin: 05/14/24 08:35 Dose: 5 mg Documented By: THUAN Atorvastatin Calcium (Atorvastatin Calcium 40 Mg Tablet) 40 mg PO MOWEFR@1600 [facility] Last Admin: 05/13/24 16:40 Dose: 40 mg Documented By: THUAN Atorvastatin Calcium (Atorvastatin Calcium 40 Mg Tablet) 40 mg PO SUTUTHSA@0900 [facility] Last Admin: 05/14/24 08:37 Dose: 40 mg Documented By: THUAN Bisacodyl (Bisacodyl 10 Mg Supp.Rect) 10 mg [place] DAILY [facility] Last Admin: 05/14/24 08:38 Dose: Not Given Documented By: THUAN Non-Admin Reason: BM LAST NIGHT Calcium Carbonate (Calcium Carbonate 750 Mg Tab.Chew) 750 mg PO Q4H PRN PRN Reason: Heartburn Carvedilol (Carvedilol 6.25 Mg Tablet) 6.25 mg PO BID [facility]; Protocol Last Admin: 05/14/24 08:34 Dose: 6.25 mg Documented By: THUAN Dextrose (Dextrose 50 % 25 Gm/50 Ml Syringe) 25 gm IVPUSH Q15M PRN; Protocol PRN Reason: per Hypoglycemia Standing Ord. Last Admin: 05/07/24 07:05 Dose: 25 gm Documented By: YAKOV-RIVLA Docusate Sodium (Docusate Sodium 100 Mg Capsule) 100 mg PO BID [facility] Last Admin: 05/14/24 08:38 Dose: Not Given Documented By: THUAN Non-Admin Reason: BM LAST NIGHT Epoetin Keegan-epbx (Epoetin Keegan-Epbx 10,000 Unit/Ml Vial) 10,000 unit SUBCUT MoWeFr@1645 [facility] Last Admin: 05/13/24 17:35 Dose: 10,000 unit Documented By: THUAN Ferrous Sulfate (Ferrous Sulfate 324 Mg Tablet.Dr) 324 mg PO DAILY [facility] Last Admin: 05/14/24 08:37 Dose: 324 mg Documented By: THUAN Fluticasone/Umeclidinium/Vilanterol (Fluticasone/Umeclidinium/Vilanterol 100/62.5/25 Blst.W.Dev) 1 puff INHALE RDAILY [facility] Last Admin: 05/13/24 08:10 Dose: 1 puff Documented By: HO.GOLAR Glucose (Glucose Gel 15 Gm Gel..Gram.) 15 gm PO Q15M PRN; Protocol PRN Reason: per Hypoglycemia Standing Ord. Last Admin: 05/12/24 21:47 Dose: 15 gm Documented By: KAUSHIK Heparin Sodium (Porcine) (Heparin Sodium,Porcine 5,000 Unit/Ml Vial) 5,000 unit SUBCUT Q8H [facility] Last Admin: 05/14/24 05:26 Dose: Not Given Documented By: SOURAV Non-Admin Reason: Patient Refused Hydromorphone HCl (Hydromorphone Hcl 2 Mg Tablet) 0.5 mg PO Q6H PRN PRN Reason: Pain, Severe (Pain Scale 7-10) Insulin Glargine (Insulin Glargine,Hum.Rec.Anlog 100 Unit/Ml 10 Ml Vial) 18 unit SUBCUT BEDTIME [facility] Last Admin: 05/13/24 22:34 Dose: Not Given Documented By: SOURAV Non-Admin Reason: Patient Refused Insulin Human Lispro (Insulin Lispro 100 Unit/Ml 3 Ml Vial) 0 unit SUBCUT QIDACHS [facility]; Protocol Last Admin: 05/14/24 07:10 Dose: Not Given Documented By: THUAN Non-Admin Reason: No Insulin Coverage Levetiracetam (Levetiracetam 500 Mg Tablet) 500 mg PO BID [facility] Last Admin: 05/14/24 08:37 Dose: 500 mg Documented By: THUAN Losartan Potassium (Losartan Potassium 25 Mg Tablet) 25 mg PO BEDTIME [facility]; Protocol Last Admin: 05/13/24 22:36 Dose: 25 mg Documented By: SOURAV Magnesium Hydroxide (Milk Of Magnesia 30 Ml Oral.Susp) 30 ml PO DAILY PRN PRN Reason: Constipation Melatonin (Melatonin 3 Mg Tablet) 6 mg PO BEDTIME PRN PRN Reason: Insomnia Last Admin: 05/13/24 22:35 Dose: 6 mg Documented By: SOURAV Naloxone HCl (Naloxone Hcl 0.4 Mg/Ml Vial) 0.04 mg IVPUSH Q5M PRN PRN Reason: Respiratory Rate < 10 Last Admin: 05/07/24 07:37 Dose: 0.04 mg Documented By: TRI Omeprazole (Omeprazole 20 Mg Capsule.Dr) 20 mg PO DAILY@0630 [facility] Last Admin: 05/14/24 05:26 Dose: Not Given Documented By: SOURAV Non-Admin Reason: Patient Refused Ondansetron HCl (Ondansetron Hcl 4 Mg/2 Ml Vial) 4 mg IVPUSH Q8H PRN PRN Reason: Nausea and Vomiting Last Admin: 05/04/24 14:05 Dose: 4 mg Documented By: GARCIA Polyethylene Glycol (Polyethylene Glycol 3350 17 Gm Powd.Pack) 17 gm PO DAILY [facility] Last Admin: 05/14/24 08:38 Dose: Not Given Documented By: THUAN Non-Admin Reason: BM LAST NIGHT Pregabalin (Pregabalin 50 Mg Capsule) 50 mg PO DAILY [facility] Last Admin: 05/14/24 09:55 Dose: 50 mg Documented By: THUAN Senna (Sennosides 8.6 Mg Tablet) 8.6 mg PO BEDTIME [facility] Last Admin: 05/13/24 22:36 Dose: 8.6 mg Documented By: SOURAV Sevelamer Carbonate (Sevelamer Carbonate Tablet 800 Mg Tablet) 1,600 mg PO TIDWM [facility] Last Admin: 05/14/24 08:34 Dose: 1,600 mg Documented By: THUAN Sodium Chloride (0.9 % Sodium Chloride Flush 3 Ml Syringe) 3 ml IVFLUSH QSHIFT [facility] Last Admin: 05/14/24 08:53 Dose: 3 ml Documented By: THUAN Zinc Acetate/Diphenhydramine (Diphenhydramine Hcl 2 % Cream 28 Gm Tube) 1 appl TOPICAL TID PRN; Protocol PRN Reason: rash Last Admin: 05/08/24 23:42 Dose: 1 appl Documented By: ELISEO Labs 05/14/24 06:05 05/11/24 07:10 Labs: Laboratory Results - last 24 hr 05/13/24 05/13/24 05/13/24 08:36 13:15 14:15 MCV 78.3 L MCH 24.6 L MCHC 31.4 RDW 18.2 H Plt Count 315 MPV 11.0 Immature Gran % (Auto) Neut % (Auto) Lymph % (Auto) [place] % (Auto) Eos % (Auto) Baso % (Auto) Lymph # (Auto) [place] # (Auto) Eos # (Auto) Baso # (Auto) Abs Immat Gran (auto) Absolute Neuts (auto) Absolute Nucleated RBC 0.000 Nucleated RBC % (auto) 0.0 POC Glucose 119 H Crossmatch See Detail 05/13/24 05/13/24 05/14/24 15:41 21:13 06:05 MCV 79.2 L MCH 24.6 L MCHC 31.0 RDW 17.7 H Plt Count 331 MPV 10.7 Immature Gran % (Auto) 1.0 H Neut % (Auto) 76.7 H Lymph % (Auto) 14.6 L [place] % (Auto) 6.9 Eos % (Auto) 0.6 Baso % (Auto) 0.2 Lymph # (Auto) 1.8 [place] # (Auto) 0.9 Eos # (Auto) 0.1 Baso # (Auto) 0.0 Abs Immat Gran (auto) 0.12 H Absolute Neuts (auto) 9.6 H Absolute Nucleated RBC 0.000 Nucleated RBC % (auto) 0.0 POC Glucose 157 H 183 H Crossmatch 05/14/24 07:01 MCV MCH MCHC RDW Plt Count MPV Immature Gran % (Auto) Neut % (Auto) Lymph % (Auto) [place] % (Auto) Eos % (Auto) Baso % (Auto) Lymph # (Auto) [place] # (Auto) Eos # (Auto) Baso # (Auto) Abs Immat Gran (auto) Absolute Neuts (auto) Absolute Nucleated RBC Nucleated RBC % (auto) POC Glucose 106 Crossmatch Microbiology Microbiology Results: Microbiology 05/03/24 Unknown Fungal Identification - Preliminary Pericardial Fluid No growth after 1 week. Assessment and Plan (1) Acute on chronic anemia: Status: Acute (2) Above knee amputation of right lower extremity: Status: Acute (3) ESRD needing dialysis: Status: Acute Plan 69M PMH significant for?ESRD on HD M/W/F, insulin-dependent type 2 diabetes, peripheral vascular disease, s/p right BKA / by Dr. Cannon, seizure disorder, HFrEF, HTN, HLD, chronically on 2L home O2, GERD, and ROBERT on CPAP who presented to the ED with?rash x2 days. found to have mod severe pericardial effusion, course complicated by hemodynamic instability from tamponade, transferred to ICU, improved after pericardiocentesis, now downgraded to medical floor. 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 Generalized Rash resolving ddx: Hydralazine induced vasculitis , systemic vasculitis , small-vessel vasculitis, Anca associated ANCA vasculitides, SAIDA, cold agglutinin, total complement, cryoglobulin, hepatitis serology, antihistone antibody, HIV, ds DNA, [employer] STORAGE SUPERINTENDENT antibody pending Discontinued hydralazine One dose of empiric IV steroids given Echo showed no vegetations acute toxic metabolic encephalopathy improving due to opiates, responded to low dose narcan could be also from Keppra stop ms contin, change to po dilaudid 2mg q6h prn Moderate to severe Pericardial effusion complicated by tamponade Echocardiogram showed severe biventricular dysfunction and [id number] pericardial effusion s/p pericardial window - follow up repeat echo Fluid analysis showing exudative effusion suggesting infection\inflammatory cause Chronic hypoxic respiratory failure on 2 L of home oxygen/obstructive sleep apnea on CPAP No acute hypoxia. ESRD on HD M/W/F Continue ShayanphJessica flores, nephro consulted, Dr. Rao following Chronic anemia hematocrit stable Insulin-dependent type 2 diabetes continue Sliding-scale insulin, resume Lantus 18 units at bedtime (home dose 22 units), Diabetic diet Seizure disorder Continue Keppra HLD/PAD aspirin Peripheral neuropathy Continue pregabalin full Code DVT Prophylaxis: hep sq reason for continued hospitalization: Post AKA care, PT evaluation , anemia monitoring and blood transfusion Quality Stroke Does the patient have a stroke diagnosis?: No VTE Prior VTE?: No VTE Risk Level:: Medical - moderate - high VTE Device Contraindication: N/A - Device Ordered VTE Drug Contraindication: Treatment Not Indicated
[2024-05-14 11:28] LABS: Glucose, Whole Blood 210 mg/dL (60-115)
[2024-05-14] MEDS: Fluticasone/Umeclidinium/Vilanterol 100/62.5/25 BLST.W.DEV 1 PUFF INHALE (11:55)
--- NOTE | 2024-05-14 12:04 | MHC.CM.PN ---
EMR REVIEWED, P.T. RECOMMENDING STR, CM CONTACTED PT'S BROTHER LILIYA AT [employer] ON FILE TO DISCUSS DISPO AND LILIYA WILL CONTACT PT'S SONS TO DISCUSS, CM AWAITING FOR SONS TO ARRIVE AT BEDSIDE.
[2024-05-14] MEDS: Heparin Sodium,Porcine 5,000 UNIT/ML VIAL 5000 UNIT SUBCUT ×2 (12:06→20:06)
[2024-05-14 16:41] LABS: Glucose, Whole Blood 150 mg/dL (60-115)
[2024-05-14] MEDS: Melatonin 3 MG TABLET 6 MG PO (20:04)
[2024-05-14] MEDS: Losartan Potassium 25 MG TABLET PO (20:04)
[2024-05-14] MEDS: Docusate Sodium 100 MG CAPSULE PO (20:04)
[2024-05-14] MEDS: Sennosides 8.6 MG TABLET PO (20:04)
[2024-05-14 20:11] LABS: Glucose, Whole Blood 201 mg/dL (60-115)
[2024-05-15] VITALS (8 sets, daily range): BP systolic 141–173; BP diastolic 72–79; PULSE 61–66; RESP 16–20; TEMP 36.3–37.1; O2SAT 94–100
[2024-05-15] MEDS: Acetaminophen 325 MG TABLET 975 MG PO ×4 (00:17→23:21)
[2024-05-15] MEDS: Heparin Sodium,Porcine 5,000 UNIT/ML VIAL 5000 UNIT SUBCUT ×3 (05:24→19:43)
[2024-05-15 07:15] LABS: Glucose, Whole Blood 101 mg/dL (60-115)
[2024-05-15] MEDS: Ferrous Sulfate 324 MG TABLET.DR PO (07:40)
[2024-05-15] MEDS: amLODIPine Besylate 5 MG TABLET PO (07:40)
[2024-05-15] MEDS: Sevelamer Carbonate Tablet 800 MG TABLET 1600 MG PO ×3 (07:40→16:59)
[2024-05-15] MEDS: Docusate Sodium 100 MG CAPSULE PO (07:40)
[2024-05-15] MEDS: 0.9 % Sodium Chloride Flush 3 ML SYRINGE IVFLUSH ×2 (07:41→17:02)
[2024-05-15] MEDS: carvediloL 6.25 MG TABLET PO ×2 (07:41→19:43)
[2024-05-15] MEDS: levETIRAcetam 500 MG TABLET PO ×2 (07:41→19:42)
[2024-05-15] MEDS: Pregabalin 50 MG CAPSULE PO (07:41)
[2024-05-15] MEDS: Fluticasone/Umeclidinium/Vilanterol 100/62.5/25 BLST.W.DEV 1 PUFF INHALE (07:58)
--- NOTE | 2024-05-15 09:26 | MHC.CM.PN ---
IMM 05/15/24 DELIVERED TO BEDSIDE, [facility] CONFIRMED HD SLOT AND HAVE BED FOR PT TODAY, [facility] SUBMITTING FOR AUTH AND PT AND HCP/SON LEVARURO AGREEABLE TO PLAN, CM WILL CONTACT ALYSS[facility] W/DC TIME ONCE AUTH RECEIVED.
--- NOTE | 2024-05-15 10:46 | HO.VASCPN ---
Subjective Subjective Date of Service: 05/15/24 Interval history: Beau is doing well this morning, he is receiving HD. He denies any pain in the AKA site. He has been working with PT and is feeling better overall. He has no new concerns this morning. Physical Exam Vital Signs: Vital Signs: Last Vital Signs Temp 98.6 F 05/15/24 07:14 Pulse 64 05/15/24 07:58 Resp 17 05/15/24 07:58 BP 150/79 H 05/15/24 07:14 Pulse Ox 95 05/15/24 07:14 O2 Del Method Nasal Cannula 05/15/24 07:14 O2 Flow Rate 2 05/15/24 07:14 Oxygen Flow Rate 2 05/11/24 13:00 BMI result Body Mass Index 29.1 Const: General: comfortable and no acute distress Orientation/consciousness: patient oriented x3 HEENT: Ears: hearing grossly normal bilaterally Resp: Effort & Inspection: normal respiratory effort and able to speak in complete sentences Auscultation: clear to auscultation bilaterally Cardio: Rate: regular rate Rhythm: regular rhythm Heart sounds: S1 normal heart sound present and S2 normal heart sound present Bruits: no abdominal aortic bruits, no carotid bruits, no femoral bruits and no renal bruits GI: Palpation (GI): No Abdominal aortic bruit present Neuro: General: patient oriented x3 Cranial nerves: Yes CN's II-XII intact bilaterally Extrem: Other: Right AKA site: dressing intact, not taken down this morning. Progress Note: A&P Assessment and plan (1) Above knee amputation of right lower extremity: Status: Acute Assessment and Plan: Beau is doing well. CM is working on placement at rehab. He continues with HD on //. He continues to work with PT. He is overall feeling better. We recommend dressing changes at least 3 times a week with xeroform, 4x4, and kerlix wrap. We will have him follow up with us outpatient in 2w for suture and staple removal. We will continue to monitor. If there are any questions or concerns, please do not hesitate to reach out to us. Time Spent With Patient Time: Total time managing care of this patient today ____ minutes. Procedures Date of Service Date of Service: 05/15/24 Quality Stroke Does the patient have a stroke diagnosis?: No VTE Prior VTE?: No VTE Risk Level:: Medical - moderate - high VTE Device Contraindication: N/A - Device Ordered VTE Drug Contraindication: Treatment Not Indicated
[2024-05-15 11:48] LABS: Glucose, Whole Blood 161 mg/dL (60-115)
--- NOTE | 2024-05-15 11:51 | P.PNIM_ITS ---
Subjective Subjective Date of Service: 05/15/24 Interval History: Seen and evaluated this morning alert and interactive having bowel movements pain well controlled in AKA right leg better controlled BP Review of Systems Review of Systems: Yes all other systems are reviewed and are negative Physical Exam 2 Vital Signs: Vital Signs: Last Vital Signs Temp 97.3 F 05/15/24 11:48 Pulse 62 05/15/24 11:48 Resp 17 05/15/24 07:58 BP 141/72 H 05/15/24 11:48 Pulse Ox 95 05/15/24 11:48 O2 Del Method Nasal Cannula 05/15/24 11:48 O2 Flow Rate 2 05/15/24 11:48 Oxygen Flow Rate 2 05/11/24 13:00 BMI result Body Mass Index 29.1 Const: Other: General resting in bed,in no acute distress. Neck supple no JVD, no distended neck veins. CVS regular rate rhythm, Respiratory lungs clear to auscultation, diminished, no respiratory distress, no wheeze, no rhonchi. Gastrointestinal abdomen soft, non tender, bowel sounds audible Extremities right BKA dressing in place Neuro non focal , speech clear. Skin non blanchable rash back, Right AKA site clean, covered with dressing, Right third finger: violaceous coloring with scabbed over prick sites noted to the left of the nail bed. Painful to palpation. Left great toe: discoloration noted to both sides of the nailbed. Not painful to palpation. Objective Data Active Medications Acetaminophen (Acetaminophen 325 Mg Tablet) 975 mg PO QSHIFT [facility] Last Admin: 05/15/24 07:40 Dose: 975 mg Documented By: RODRI Albuterol Sulfate (Albuterol Sulfate 90 Mcg 8 Gm Inhaler) 2 puff INHALE RQ4H PRN PRN Reason: Shortness Of Breath Albuterol/Ipratropium (Albuterol/Iprat 2.5/0.5mg 3 Ml Ampul.Neb) 3 ml INHALE RQID PRN PRN Reason: Wheezing Allopurinol (Allopurinol 100 Mg Tablet) 100 mg PO MOWEFR@1600 [facility] Last Admin: 05/13/24 16:40 Dose: 100 mg Documented By: THUAN Amlodipine Besylate (Amlodipine Besylate 5 Mg Tablet) 5 mg PO DAILY [facility]; Protocol Last Admin: 05/15/24 07:40 Dose: 5 mg Documented By: RODRI Atorvastatin Calcium (Atorvastatin Calcium 40 Mg Tablet) 40 mg PO MOWEFR@1600 [facility] Last Admin: 05/13/24 16:40 Dose: 40 mg Documented By: THUAN Atorvastatin Calcium (Atorvastatin Calcium 40 Mg Tablet) 40 mg PO SUTUTHSA@0900 [facility] Last Admin: 05/14/24 08:37 Dose: 40 mg Documented By: THUAN Bisacodyl (Bisacodyl 10 Mg Supp.Rect) 10 mg [place] DAILY [facility] Last Admin: 05/15/24 07:41 Dose: Not Given Documented By: RODRI Non-Admin Reason: Refused, pt moving bowels Calcium Carbonate (Calcium Carbonate 750 Mg Tab.Chew) 750 mg PO Q4H PRN PRN Reason: Heartburn Carvedilol (Carvedilol 6.25 Mg Tablet) 6.25 mg PO BID [facility]; Protocol Last Admin: 05/15/24 07:41 Dose: 6.25 mg Documented By: RODRI Dextrose (Dextrose 50 % 25 Gm/50 Ml Syringe) 25 gm IVPUSH Q15M PRN; Protocol PRN Reason: per Hypoglycemia Standing Ord. Last Admin: 05/07/24 07:05 Dose: 25 gm Documented By: YAKOV-WILEY Docusate Sodium (Docusate Sodium 100 Mg Capsule) 100 mg PO BID [facility] Last Admin: 05/15/24 07:40 Dose: 100 mg Documented By: RODRI Epoetin Keegan-epbx (Epoetin Keegan-Epbx 10,000 Unit/Ml Vial) 10,000 unit SUBCUT MoWeFr@1645 [facility] Last Admin: 05/13/24 17:35 Dose: 10,000 unit Documented By: THUAN Ferrous Sulfate (Ferrous Sulfate 324 Mg Tablet.Dr) 324 mg PO DAILY [facility] Last Admin: 05/15/24 07:40 Dose: 324 mg Documented By: RODRI Fluticasone/Umeclidinium/Vilanterol (Fluticasone/Umeclidinium/Vilanterol 100/62.5/25 Blst.W.Dev) 1 puff INHALE RDAILY [facility] Last Admin: 05/15/24 07:58 Dose: 1 puff Documented By: SHRUTHI Glucose (Glucose Gel 15 Gm Gel..Gram.) 15 gm PO Q15M PRN; Protocol PRN Reason: per Hypoglycemia Standing Ord. Last Admin: 05/12/24 21:47 Dose: 15 gm Documented By: KAUSHIK Heparin Sodium (Porcine) (Heparin Sodium,Porcine 5,000 Unit/Ml Vial) 5,000 unit SUBCUT Q8H [facility] Last Admin: 05/15/24 05:24 Dose: 5,000 unit Documented By: KEREN Hydromorphone HCl (Hydromorphone Hcl 2 Mg Tablet) 0.5 mg PO Q6H PRN PRN Reason: Pain, Severe (Pain Scale 7-10) Insulin Glargine (Insulin Glargine,Hum.Rec.Anlog 100 Unit/Ml 10 Ml Vial) 18 unit SUBCUT BEDTIME [facility] Last Admin: 05/14/24 21:57 Dose: Not Given Documented By: KEREN Non-Admin Reason: Patient Refused Insulin Human Lispro (Insulin Lispro 100 Unit/Ml 3 Ml Vial) 0 unit SUBCUT QIDACHS [facility]; Protocol Last Admin: 05/15/24 07:36 Dose: Not Given Documented By: RODRI Non-Admin Reason: No Insulin Coverage Levetiracetam (Levetiracetam 500 Mg Tablet) 500 mg PO BID [facility] Last Admin: 05/15/24 07:41 Dose: 500 mg Documented By: RODRI Losartan Potassium (Losartan Potassium 25 Mg Tablet) 25 mg PO BEDTIME [facility]; Protocol Last Admin: 05/14/24 20:04 Dose: 25 mg Documented By: KEREN Magnesium Hydroxide (Milk Of Magnesia 30 Ml Oral.Susp) 30 ml PO DAILY PRN PRN Reason: Constipation Melatonin (Melatonin 3 Mg Tablet) 6 mg PO BEDTIME PRN PRN Reason: Insomnia Last Admin: 05/14/24 20:04 Dose: 6 mg Documented By: KEREN Naloxone HCl (Naloxone Hcl 0.4 Mg/Ml Vial) 0.04 mg IVPUSH Q5M PRN PRN Reason: Respiratory Rate < 10 Last Admin: 05/07/24 07:37 Dose: 0.04 mg Documented By: TRI Omeprazole (Omeprazole 20 Mg Capsule.Dr) 20 mg PO DAILY@0630 [facility] Last Admin: 05/15/24 05:26 Dose: Not Given Documented By: KEREN Non-Admin Reason: Patient Refused Ondansetron HCl (Ondansetron Hcl 4 Mg/2 Ml Vial) 4 mg IVPUSH Q8H PRN PRN Reason: Nausea and Vomiting Last Admin: 05/04/24 14:05 Dose: 4 mg Documented By: GARCIA Polyethylene Glycol (Polyethylene Glycol 3350 17 Gm Powd.Pack) 17 gm PO DAILY [facility] Last Admin: 05/15/24 07:41 Dose: Not Given Documented By: RODRI Non-Admin Reason: Refused, moving bowels Pregabalin (Pregabalin 50 Mg Capsule) 50 mg PO DAILY [facility] Last Admin: 05/15/24 07:41 Dose: 50 mg Documented By: RODRI Senna (Sennosides 8.6 Mg Tablet) 8.6 mg PO BEDTIME [facility] Last Admin: 05/14/24 20:04 Dose: 8.6 mg Documented By: KEREN Sevelamer Carbonate (Sevelamer Carbonate Tablet 800 Mg Tablet) 1,600 mg PO TIDWM [facility] Last Admin: 05/15/24 07:40 Dose: 1,600 mg Documented By: RODRI Sodium Chloride (0.9 % Sodium Chloride Flush 3 Ml Syringe) 3 ml IVFLUSH QSHIFT [facility] Last Admin: 05/15/24 07:41 Dose: 3 ml Documented By: RODRI Zinc Acetate/Diphenhydramine (Diphenhydramine Hcl 2 % Cream 28 Gm Tube) 1 appl TOPICAL TID PRN; Protocol PRN Reason: rash Last Admin: 05/08/24 23:42 Dose: 1 appl Documented By: ELISEO Labs 05/14/24 06:05 05/11/24 07:10 Labs: Laboratory Results - last 24 hr 05/14/24 05/14/24 05/15/24 16:27 20:06 07:12 POC Glucose 150 H 201 H 101 05/15/24 11:44 POC Glucose 161 H Assessment and Plan (1) Acute on chronic anemia: Status: Acute (2) Above knee amputation of right lower extremity: Status: Acute (3) ESRD needing dialysis: Status: Acute Plan 69M PMH significant for?ESRD on HD M/W/F, insulin-dependent type 2 diabetes, peripheral vascular disease, s/p right BKA 04/[address] Cannon, seizure disorder, HFrEF, HTN, HLD, chronically on 2L home O2, GERD, and ROBERT on CPAP who presented to the ED with?rash x2 days. found to have mod severe pericardial effusion, course complicated by hemodynamic instability from tamponade, transferred to ICU, improved after pericardiocentesis, now downgraded to medical floor. 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 Generalized Rash resolving ddx: Hydralazine induced vasculitis , systemic vasculitis , small-vessel vasculitis, Anca associated ANCA vasculitides, SAIDA, cold agglutinin, total complement, cryoglobulin, hepatitis serology, antihistone antibody, HIV, ds DNA, DIRECTOR OF [employer]ICE EDUCATION antibody pending Discontinued hydralazine One dose of empiric IV steroids given Echo showed no vegetations acute toxic metabolic encephalopathy improving due to opiates, responded to low dose narcan could be also from Keppra stop ms contin, change to po dilaudid 2mg q6h prn Moderate to severe Pericardial effusion complicated by tamponade Echocardiogram showed severe biventricular dysfunction and [id number] pericardial effusion s/p pericardial window - follow up repeat echo Fluid analysis showing exudative effusion suggesting infection\inflammatory cause Chronic hypoxic respiratory failure on 2 L of home oxygen/obstructive sleep apnea on CPAP No acute hypoxia. ESRD on HD M/W/F Continue ShayanphJessica flores, nephro consulted, Dr. Rao following Chronic anemia hematocrit stable Insulin-dependent type 2 diabetes continue Sliding-scale insulin, resume Lantus 18 units at bedtime (home dose 22 units), Diabetic diet Seizure disorder Continue Keppra HLD/PAD aspirin Peripheral neuropathy Continue pregabalin full Code DVT Prophylaxis: hep sq reason for continued hospitalization: Post AKA care, PT evaluation , anemia monitoring and blood transfusion Quality Stroke Does the patient have a stroke diagnosis?: No VTE Prior VTE?: No VTE Risk Level:: Medical - moderate - high VTE Device Contraindication: N/A - Device Ordered VTE Drug Contraindication: Treatment Not Indicated
[2024-05-15 16:08] LABS: Glucose, Whole Blood 220 mg/dL (60-115)
[2024-05-15] MEDS: Insulin Lispro 100 UNIT/ML 3 ML VIAL SUBCUT (16:59)
[2024-05-15] MEDS: Epoetin Alfa-epbx 10,000 UNIT/ML VIAL 10000 UNIT SUBCUT (16:59)
[2024-05-15] MEDS: Atorvastatin Calcium 40 MG TABLET PO (16:59)
[2024-05-15] MEDS: allopurinoL 100 MG TABLET PO (16:59)
--- NOTE | 2024-05-15 19:16 | P.PNNP_ITS ---
Subjective Subjective Date of Service: 05/15/24 Principal diagnosis: End stage renal disease Interval history: Seen and evaluated this morning ;alert and interactive; better controlled BP Physical Exam 2 Vital Signs: Vital Signs: Last Vital Signs Temp 97.4 F 05/15/24 15:28 Pulse 65 05/15/24 15:28 Resp 17 05/15/24 15:28 BP 154/77 H 05/15/24 15:28 Pulse Ox 95 05/15/24 15:28 O2 Del Method Nasal Cannula 05/15/24 15:28 O2 Flow Rate 2 05/15/24 15:28 Oxygen Flow Rate 2 05/15/24 13:00 BMI result Body Mass Index 29.1 Const: General: no acute distress Orientation/consciousness: patient oriented x3 Eyes: EOM: EOMs intact bilaterally Resp: Auscultation: diminished lung sounds Cardio: Rate: regular rate GI: Palpation (GI): Soft to palpation Neuro: General: patient oriented x3 Objective Data Labs 05/14/24 06:05 05/11/24 07:10 Labs: Laboratory Results - last 24 hr 05/14/24 05/15/24 05/15/24 20:06 07:12 11:44 POC Glucose 201 H 101 161 H 05/15/24 16:05 POC Glucose 220 H Microbiology Microbiology Results: Microbiology 05/03/24 Unknown Pericardial Fluid Fungal Identification - Preliminary No growth after 1 week. 05/03/24 Unknown Pericardial Fluid Direct Acid Fast Bacilli Smear - Final 05/05/24 10:45 Pericardial Fluid Gram Stain - Final 05/05/24 10:45 Pericardial Fluid Anaerobic Culture - Final NO GROWTH AFTER 5 DAYS 05/05/24 10:45 Pericardial Fluid Body Fluid Culture - Final No growth after 2 days 05/03/24 Unknown Pericardial Fluid Gram Stain - Final 05/03/24 Unknown Pericardial Fluid Routine Culture - Final No growth after 2 days 05/03/24 Unknown Pericardial Fluid Anaerobic Culture - Final NO GROWTH AFTER 5 DAYS 05/01/24 17:33 Blood - Venous Blood Culture - Final No growth after 5 days. 05/01/24 16:51 Blood - Venous Blood Culture - Final No growth after 5 days. Procedures Date of Service Date of Service: 05/15/24 Assessment & Plan Assessment and plan (1) ESRD needing dialysis: Status: Acute Plan Usually gets HD on MWF; Needs Procrit 61832 U MWF Renal Diet( 2 Gm Na/K/ Phos restricted/fluid restriction) Phos binders with meals. C/W rest of current management Progress Note: Quality Stroke Does the patient have a stroke diagnosis?: No
[2024-05-15] MEDS: Melatonin 3 MG TABLET 6 MG PO (19:42)
[2024-05-15] MEDS: Losartan Potassium 25 MG TABLET PO (19:43)
[2024-05-15 19:45] LABS: Glucose, Whole Blood 116 mg/dL (60-115)
[2024-05-16] VITALS: BP 178/86; PULSE 64; RESP 20; O2SAT 96
[2024-05-16] MEDS: HYDROmorphone HCl 2 MG TABLET 0.5 MG PO (01:09)
[2024-05-16 04:44] VITALS: BP 169/78; PULSE 68; TEMP 36.9; O2SAT 98
[2024-05-16] MEDS: Heparin Sodium,Porcine 5,000 UNIT/ML VIAL 5000 UNIT SUBCUT ×2 (04:46→12:26)
[2024-05-16] MEDS: Omeprazole 20 MG CAPSULE.DR PO (04:46)
[2024-05-16 07:47] VITALS: PULSE 68; RESP 20; O2SAT 95
[2024-05-16] MEDS: Fluticasone/Umeclidinium/Vilanterol 100/62.5/25 BLST.W.DEV 1 PUFF INHALE (07:47)
[2024-05-16 07:49] VITALS: BP 168/67; PULSE 68; RESP 18; TEMP 36.9; O2SAT 98
[2024-05-16 08:01] LABS: Glucose, Whole Blood 112 mg/dL (60-115)
--- NOTE | 2024-05-16 09:08 | HO.VASCPN ---
Subjective Subjective Date of Service: 05/16/24 Interval history: Beau is doing well this morning. He is eating, drinking, and sleeping well. He does endorse some pain at the AKA site this morning. Physical Exam Vital Signs: Vital Signs: Last Vital Signs Temp 98.4 F 05/16/24 07:49 Pulse 68 05/16/24 07:49 Resp 18 05/16/24 07:49 BP 168/67 H 05/16/24 07:49 Pulse Ox 98 05/16/24 07:49 O2 Del Method Room Air 05/16/24 07:49 O2 Flow Rate 2 05/16/24 04:44 Oxygen Flow Rate 2 05/15/24 13:00 BMI result Body Mass Index 29.1 Const: General: comfortable and no acute distress Orientation/consciousness: patient oriented x3 HEENT: Ears: hearing grossly normal bilaterally Resp: Effort & Inspection: normal respiratory effort and able to speak in complete sentences Auscultation: clear to auscultation bilaterally Cardio: Rate: regular rate Rhythm: regular rhythm Heart sounds: S1 normal heart sound present and S2 normal heart sound present Bruits: no abdominal aortic bruits, no carotid bruits, no femoral bruits and no renal bruits GI: Palpation (GI): No Abdominal aortic bruit present Neuro: General: patient oriented x3 Cranial nerves: Yes CN's II-XII intact bilaterally Extrem: Other: Right AKA site: C/D/I. No dressing on it this morning. Small bruising noted on the medial aspect on the flap, appx 3cm long. Not painful to palpation. [place] and sutures intact. Progress Note: A&P Assessment and plan (1) Above knee amputation of right lower extremity: Status: Acute Assessment and Plan: Beau remains stable from a vascular standpoint. He is s/p right AKA, performed on 05/09/24. He continues to take the dressings off, but nursing is attempting to reapply. CM is working on discharge to a rehab facility. We will continue to monitor. We would continue with dressing changes 3/week if the pt will keep them on. I did discuss with Beau today the importance of keeping the dressings on. If there are any questions or concerns, please do not hesitate to reach out to us. Time Spent With Patient Time: Total time managing care of this patient today ____ minutes. Procedures Date of Service Date of Service: 05/16/24 Quality Stroke Does the patient have a stroke diagnosis?: No VTE Prior VTE?: No VTE Risk Level:: Medical - moderate - high VTE Device Contraindication: N/A - Device Ordered VTE Drug Contraindication: Treatment Not Indicated
[2024-05-16] MEDS: Sevelamer Carbonate Tablet 800 MG TABLET 1600 MG PO ×2 (09:22→12:26)
[2024-05-16] MEDS: Atorvastatin Calcium 40 MG TABLET PO (09:23)
[2024-05-16] MEDS: Pregabalin 50 MG CAPSULE PO (09:23)
[2024-05-16] MEDS: Ferrous Sulfate 324 MG TABLET.DR PO (09:23)
[2024-05-16] MEDS: Acetaminophen 325 MG TABLET 975 MG PO (09:23)
[2024-05-16] MEDS: Docusate Sodium 100 MG CAPSULE PO (09:23)
[2024-05-16] MEDS: carvediloL 6.25 MG TABLET PO (09:23)
[2024-05-16] MEDS: levETIRAcetam 500 MG TABLET PO (09:23)
[2024-05-16] MEDS: amLODIPine Besylate 5 MG TABLET PO (09:23)
[2024-05-16] MEDS: 0.9 % Sodium Chloride Flush 3 ML SYRINGE IVFLUSH (09:26)
--- NOTE | 2024-05-16 11:00 | PM.DS ---
DS: Providers Provider Date of Service: 05/15/24 <Edgardo Winkler MD - Last Filed: 05/15/24 11:51> 05/16/24 <Lily Candelario MD - Last Filed: 05/16/24 11:18> Date of admission: 05/01/24 21:34 <Edgardo Winkler MD - Last Filed: 05/15/24 11:51> Date of discharge: 05/15/24 <Edgardo Winkler MD - Last Filed: 05/15/24 11:51> 05/16/24 <Lily Candelario MD - Last Filed: 05/16/24 11:18> Primary care physician: Shayla Augustine NP <Edgardo Winkler MD - Last Filed: 05/15/24 11:51> Consults: 05/01/24 21:34 Consult to Cardiology Routine Consulting Provider: [facility] Reason for consultation: pericardial effusion Has provider been notified: Yes 05/01/24 21:36 Consult to Nephrology Routine Consulting Provider: [facility] Reason for consultation: ESRD 05/02/24 14:06 Consult to Infectious Diseases Routine Consulting Provider: [facility] Reason for consultation: generaized rash Has provider been notified: No Consult to Thoracic Surgery Routine Consulting Provider: Rohith Valdes Reason for consultation: mod to severe pericardial effusion Has provider been notified: No 05/02/24 14:24 Consult to General Surgery Routine Consulting Provider: [facility] Reason for consultation: biopsy of skin lesions Has provider been notified: No 05/03/24 13:00 Consult to Vascular Surgery Routine Consulting Provider: [facility] Reason for consultation: rt bka dressing change /acute pain Has provider been notified: No 05/06/24 14:03 Consult to Case Management Routine Comment: QD day occlusive dSG to pericardial window SITE 05/09/24 15:03 Consult to Orthopedics Routine Consulting Provider: [facility] Reason for consultation: Hand evaluation for nectoric changes in right fingers . <Edgardo Winkler MD - Last Filed: 05/15/24 11:51> DS: Diagnosis Discharge Diagnosis (1) Above knee amputation of right lower extremity: Status: Acute <Edgardo Winkler MD - Last Filed: 05/15/24 11:51> (2) Acute on chronic anemia: Status: Acute <Edgardo Winkler MD - Last Filed: 05/15/24 11:51> (3) Necrotic wound of left hand: Status: Acute <Edgardo Winkler MD - Last Filed: 05/15/24 11:51> (4) Left ventricular systolic dysfunction (LVSD): Status: Acute <Edgrado Winkler MD - Last Filed: 05/15/24 11:51> (5) PVD (peripheral vascular disease): Status: Acute <Edgardo Winkler MD - Last Filed: 05/15/24 11:51> (6) Status post creation of pericardial window: Status: Acute <Edgardo Winkler MD - Last Filed: 05/15/24 11:51> (7) Pericardial tamponade: Status: Acute <Edgardo Winkler MD - Last Filed: 05/15/24 11:51> (8) Pericardial effusion: Status: Acute <Edgardo Winkler MD - Last Filed: 05/15/24 11:51> (9) ESRD needing dialysis: Status: Acute <Edgardo Winkler MD - Last Filed: 05/15/24 11:51> (10) Rash: Status: Acute <Edgardo Winkler MD - Last Filed: 05/15/24 11:51> DS: Summary Hospital Course Hospital Course: The patient had prolonged hospital stay. for full details please return to EMR. Admission note HPI Pt is a 69-year-old male with a PMH significant for?ESRD on HD M/W/F last dialyzed earlier today, insulin-dependent type 2 diabetes, peripheral vascular disease, s/p right BKA 04/[address] Cannon, HFrEF, HTN, HLD, chronically on 2L home O2, GERD, and ROBERT on CPAP who presents to the ED with?rash x2 days. Pt reports rash began on his left knee and the back of his upper left arm. Saw vascular surgery yesterday for follow up appointment for BKA and had francisco removed the sutures remained intact. Last night rash began to spread to back, belly, groin, and down leg legs and arms, worsening this morning. Rash is neither itching or painful. Pt himself did not initially notice it until family member point in and out and encouraged him to come to the ED for further evaluation. Pt complains of pain in right stump and reports he has not been taking much pain medication for it at home. Denies any other systemic symptoms. No fever, chills, nausea, vomiting, abdominal pain. Denies chest pain/pressure, palpitations. Chronic SOB at baseline. No increased difficulty breathing or cough.. In the ED pt was hypertensive up to 162/121, vitals otherwise stable and WNL. Labs were significant for ESR 92, glucose 424, and CRP 19.06. Stable microcytic anemia of 9.2/28.5. No significant electrolyte abnormalities. Renal function baseline with creatinine 5.66. Lactic acid WNL at 1.2. Alk-phos chronically elevated at 232. TSH WNL at 0.61. CT of chest showed new large pericardial effusion and right pleural effusion with pleural thickening and right lower and middle lobe consolidations, similar to prior. CT of abdomen and pelvis found 1.3 cm right iliac lymph node and nodular contour of liver concerning for cirrhosis, otherwise negative for acute abdomen. ED clinician contacted Dr. Cannon who did not think that rash was secondary to vasculitis. The ED then contacted ID who had concerns for possible septic emboli from aorta and recommended getting imaging and starting pt on empiric antibiotics. ED then contacted Cardiology due to pericardial effusion suggested making pt NPO, getting echo, and checking inflammatory markers. Pt was treated with Vanc and c.efazolin. Pt will be admitted to the hospital for treatment and further evaluation of new pericardial effusion and diffuse rash concerning for septic emboli vs vasculitis. Hospital course The patient was treated for the following: # Status post right AKA on 05/09. The patient had BKA on 04/11 but continued to have severe pain and wound healing problem. evaluated by Vascular surgery who did AKA on 05/09 with significant improvement in pain and good looking wound. Placed on broad spectrum antibiotics which was later discontinued per ID recommendations. Leukocytosis improved. Dressing per Vascular surgery instructions. To follow with Dr Cannon in office in 2 weeks. # Right hand ischemic changes, 3rd finger , Orthopedic evaluation recommends outpatient follow up with local care now only. # Physical deconditionig, PT evaluation recommended STR # Acute on chronic anemia, no blood loss, likely from ESRD and acute illness . received 1 unit of blood with good response 8.5. EPO MWF and Iron supplement with dialysis. 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 Had positive SAIDA, SAIDA titer 1:80, SAIDA Pattern A, Elevated Total complement. Resolved after Discontinuation of hydralazine. Echo showed no vegetations. # Acute toxic metabolic encephalopathy, resolved. likely due to vasculitis/esrd/ opiates, responded to low dose narcan, stop MS Contin, weaned down Dilaudid, continue tylenol and oxycodone low dose for svere pain. # Moderate to severe Pericardial effusion complicated by tamponade. Echocardiogram showed severe biventricular dysfunction and [id number] pericardial effusion. Had surgical intervention and s/p pericardial window on 05/03 - follow up repeat echo showed resolution of pericardial effusion and no evidence of tamponade. Fluid analysis showing exudative effusion suggesting infection\inflammatory cause, could be related to dialysis as well,no symptomatic recurrence. # Chronic hypoxic respiratory failure on 2 L of home oxygen Discharge plan Physical therapy Discontinue Hydralazine Start amlodipine Follow with Dr Cannon in 2 weeks for wound check and staple removal To follow with [facility] in 2 weeks for finger ischemia for further management; for now local care <Edgardo Winkler MD - Last Filed: 05/15/24 11:51> Time Attestation Discharge Coordination Time (in mins): 48 <Edgardo Winkler MD - Last Filed: 05/15/24 11:51> Quality: Safe Use of Opioids Does Pt have an Active Cancer Diagnosis on the Problem List?: No <Edgardo Winkler MD - Last Filed: 05/15/24 11:51> Quality: Stroke Does the patient have a stroke diagnosis?: No <Edgardo Winkler MD - Last Filed: 05/15/24 11:51> Physical Exam Vital Signs: Vital Signs: Last Vital Signs Temp 98.6 F 05/15/24 07:14 Pulse 64 05/15/24 07:58 Resp 17 05/15/24 07:58 BP 150/79 H 05/15/24 07:14 Pulse Ox 95 05/15/24 07:14 O2 Del Method Nasal Cannula 05/15/24 07:14 O2 Flow Rate 2 05/15/24 07:14 Oxygen Flow Rate 2 05/11/24 13:00 BMI result Body Mass Index 29.1 <Edgardo Winkler MD - Last Filed: 05/15/24 11:51> Const: Other: General resting in bed,in no acute distress. Neck supple no JVD, no distended neck veins. CVS regular rate rhythm, Respiratory lungs clear to auscultation, diminished, no respiratory distress, no wheeze, no rhonchi. Gastrointestinal abdomen soft, non tender, bowel sounds audible Extremities right BKA dressing in place Neuro non focal , speech clear. Skin non blanchable rash back, Right AKA site clean, covered with dressing, Right third finger: violaceous coloring with scabbed over prick sites noted to the left of the nail bed. Painful to palpation. Left great toe: discoloration noted to both sides of the nailbed. Not painful to palpation. <Edgardo Winkler MD - Last Filed: 05/15/24 11:51> Other: General resting in bed,in no acute distress. Neck supple no JVD, no distended neck veins. CVS regular rate rhythm, Respiratory lungs clear to auscultation, diminished, no respiratory distress, no wheeze, no rhonchi. Gastrointestinal abdomen soft, non tender, bowel sounds audible Extremities right AKA dressing in place Neuro non focal , speech clear. Skin non blanchable rash back, Right AKA site clean, covered with dressing, Right third finger: violaceous coloring with scabbed over prick sites noted to the left of the nail bed. Painful to palpation. Left great toe: discoloration noted to both sides of the nail bed. Not painful to palpation. <Lily Candelario MD - Last Filed: 05/16/24 11:18> DS: Data Data Completed and Pending Completed studies during hospitalization [Text1]: Pending at discharge 05/02/24 14:30 Surgical Path [Surgical] [PTH] Routine 05/03/24 14:15 Cytology [PTH] Stat 05/03/24 14:20 Surgical [PTH] Routine 05/09/24 13:56 Surgical [PTH] Routine Procedures Detachment at Right 1st Toe, Complete, Open Approach (03/19/24) Detachment at Right 2nd Toe, Complete, Open Approach (03/19/24) Detachment at Right 3rd Toe, Complete, Open Approach (03/19/24) Detachment at Right 4th Toe, Complete, Open Approach (03/19/24) Detachment at Right 5th Toe, Complete, Open Approach (03/19/24) Detachment at Right Lower Leg, Mid, Open Approach (04/05/24) Drainage of Right Pleural Cavity with Drainage Device, Percutaneous Approach (11/28/23) Drainage of Right Pleural Cavity, Percutaneous Approach (04/10/23) Excision of Right Metatarsal, Open Approach (04/05/24) Introduction of Anesthetic Agent into Peripheral Nerves and Plexi, Percutaneous Approach (04/05/24) Introduction of Other Therapeutic Substance into Pleural Cavity, Percutaneous Approach (09/30/23) Introduction of Other Thrombolytic into Pleural Cavity, Percutaneous Approach (09/30/23) Performance of Urinary Filtration, Intermittent, Less than 6 Hours Per Day (04/05/24) Transfusion of Nonautologous Red Blood Cells into Peripheral Vein, Percutaneous Approach (04/05/24) <Edgardo Winkler MD - Last Filed: 05/15/24 11:51> Labs on day of discharge: Laboratory Results - last 24 hr 05/14/24 05/14/24 05/15/24 16:27 20:06 07:12 POC Glucose 150 H 201 H 101 Preliminary micro results at discharge 05/03/24 Unknown Fungal Identification - Preliminary Pericardial Fluid No growth after 1 week. <Edgardo Winkler MD - Last Filed: 05/15/24 11:51> Imaging Chest x-ray: Radiologist's impression: CXR Impression: 1. Stable mild pleural-parenchymal disease right lower lobe. 2. Cardiomegaly without evidence of heart failure. 3. Well-positioned supportive device. This document has been electronically signed by: Mor Cantrell MD on 05/11/2024 11:07:16 <Edgardo Winkler MD - Last Filed: 05/15/24 11:51> Discharge Plan Discharge Anticipated Discharge Date/Time: 05/16/24 11:08 <Edgardo Winkler MD - Last Filed: 05/15/24 11:51> Patient Disposition: Xfer SNF <Edgardo Winkler MD - Last Filed: 05/15/24 11:51> Discharge Diagnosis: Post AKA right lower extremity ESRD needs Dialysis <Edgardo Winkler MD - Last Filed: 05/15/24 11:51> Post AKA right lower extremity ESRD needs Dialysis <Lily Candelario MD - Last Filed: 05/16/24 11:18> Referrals: [facility] [Other] - 1 Day (SHORT TERM REHAB) Shayla Augustine NP [Primary Care Provider] - 1 Week Baltazar Cannon MD [Physician] - 1 Week Rohith Valdes MD [Physician] - 1 Week <Edgardo Winkler MD - Last Filed: 05/15/24 11:51> Discharge Medications: New amlodipine 5 mg Tablet 5 mg PO DAILY Qty: 90 0RF Protocol: Hold for SBP< HOLD for SBP < : 90 sevelamer carbonate 800 mg Tablet 1,600 mg PO TIDWM Qty: 90 0RF polyethylene glycol 3350 17 gram Powder In Packet 17 g PO DAILY Qty: 100 0RF oxycodone 5 mg tablet 5 mg PO Q6H PRN (Reason: pain (scale score 7-10)) Qty: 14 0RF Rx Instructions: Partial Fill upon patient request. Continued (DME) PleurX catheter drainage kits 1000cc kits See Rx Instructions .Route .MEDSUPPLY Qty: 10 6RF Rx Instructions: As directed atorvastatin 40 mg tablet 40 mg PO SUTUTHSA@0900 ipratropium-albuterol 0.5 mg-3 mg(2.5 mg base)/3 mL solution for nebulization 3 ml INHALATION QID PRN (Reason: Wheezing) allopurinol 100 mg tablet 100 mg PO MOWEFR@1600 Rx Instructions: GIVE AFTER DIALYSIS furosemide 80 mg tablet 80 mg PO SUTUTHSA@0900 omeprazole 20 mg capsule,delayed release(DR/EC) 20 mg PO DAILY@0630 doxazosin 4 mg tablet 4 mg PO BEDTIME albuterol sulfate 90 mcg/actuation HFA aerosol inhaler 2 puff INHALATION Q4H PRN (Reason: Shortness Of Breath) fluticasone propionate 50 mcg/actuation [place],Suspension 1 spray intranasal BID Qty: 16 0RF Velphoro 500 mg tablet,chewable 500 mg PO TID insulin lispro 100 unit/mL insulin pen 1 sliding scale dose subcut TIDAC Rx Instructions: 200-249 - 2 UNITS 250-299 4 UNITS, 300-349 6 UNITS 350-439 8 UNITS 400+ CALL DR aspirin 81 mg tablet,delayed release (DR/EC) 81 mg PO SUTUTHSA@09 pregabalin 75 mg capsule 75 mg PO SUTUTHSA@, atorvastatin 40 mg tablet 40 mg PO MOWEFR@1600 sennosides [senna] 8.6 mg Tablet 8.6 mg PO DAILY PRN (Reason: Constipation) acetaminophen 325 mg Tablet 650 mg PO Q4H PRN (Reason: PAIN/FEVER) aspirin 81 mg Tablet,Delayed Release (Dr/Ec) 81 mg PO MOWEFR@1600 furosemide 80 mg tablet 80 mg PO MOWEFR@1600 bisacodyl [Dulcolax (bisacodyl)] 10 mg Suppository 10 mg OR DAILY PRN (Reason: Constipation) losartan 25 mg tablet 25 mg PO MOWEFR@1600 pregabalin 75 mg capsule 75 mg PO MOWEFR@1600 Trelegy Ellipta 100-62.5-25 mcg Blister With Device 1 inh INHALATION DAILY carvedilol 6.25 mg tablet 6.25 mg PO BID Protocol: Hold for SBP/HR < HOLD for SBP < : 90 HOLD for HR < : 60 losartan 25 mg tablet 25 mg PO SUTUTHSA@0900 Protocol: Hold for SBP< HOLD for SBP < : 90 levetiracetam 500 mg Tablet 500 mg PO BID Qty: 180 0RF insulin glargine [Lantus Solostar U-100 Insulin] 100 unit/mL (3 mL) insulin pen 22 unit subcut BEDTIME Discontinued hydralazine 25 mg tablet 25 mg PO SUTUTHSA@,, oxycodone 5 mg tablet 5 mg PO Q6H PRN (Reason: pain) hydralazine 25 mg Tablet 25 mg PO MOWEFR@1600 <Edgardo Winkler MD - Last Filed: 05/15/24 11:51> Discharge Orders: Discharge Order (Routine); Ordered 05/16/24 Ordered By: Lily Candelario <Edgardo Winkler MD - Last Filed: 05/15/24 11:51> Diet: Advance to usual diet <Edgardo Winkler MD - Last Filed: 05/15/24 11:51> Advance to usual diet <Lily Candelario MD - Last Filed: 05/16/24 11:18> Activity on Discharge: No heavy lifting <Edgardo Winkler MD - Last Filed: 05/15/24 11:51> No heavy lifting <Lily Candelario MD - Last Filed: 05/16/24 11:18> Stand Alone Forms: Patient Portal Discharge page <Edgardo Winkler MD - Last Filed: 05/15/24 11:51> Print Language: Palauan <Edgardo Winkler MD - Last Filed: 05/15/24 11:51> Activity Restrictions/Additional Instructions: May shower . Remove outside dressing only. Leave Steri-Strips intact. No strenuous activities Wound care upon discharge: xeroform, 4x4 and Kerlix wrap to be changed 3/week. Please call Dr. Cannon at [phone] for 2 week follow up for suture and staple removal <Edgardo Winkler MD - Last Filed: 05/15/24 11:51> Care Plan Goals: Physical therapy Discontinue Hydralazine Start amlodipine Follow with Dr Cannon in 2 weeks for wound check and staple removal To follow with [facility] in 2 weeks for finger ischemia for further management; for now local care <Edgardo Winkler MD - Last Filed: 05/15/24 11:51> Health Concerns: Post above knee amputation 3rd finger ischemia ESRD on dialysis <Edgardo Winkler MD - Last Filed: 05/15/24 11:51> Plan of Treatment: Amlodipine Discontinue Hydralazine <Edgardo Winkler MD - Last Filed: 05/15/24 11:51> Assessment: as above <Edgardo Winkler MD - Last Filed: 05/15/24 11:51>
--- NOTE | 2024-05-16 11:02 | MHC.CM.PN ---
PT DISCHARGING TO [facility] AT ON LICENSE OF [facility] AT 1PM VIA [facility] FOR BLS TRANSPORT, PT'S BROTHER LILIYA NOTIFIED AT APPROX 8:45AM AND WILL LET PT'S SONS/HCP'S LILIYA AND CAITLYN KNOW.
[2024-05-16 11:16] VITALS: BP 121/55; PULSE 67; RESP 18; TEMP 36.6; O2SAT 93
[2024-05-16 11:24] LABS: Glucose, Whole Blood 246 mg/dL (60-115)
[2024-05-16] MEDS: Insulin Lispro 100 UNIT/ML 3 ML VIAL SUBCUT (12:26)
[2024-05-16 13:00] VITALS: O2SAT 95
== END 2024-05-16 14:34 | disposition skilled nursing facility (03) | DRG 270 ==
LOC: HO.ED 20:30 → HO.EDOVER 21:40 → HO.IMC 05-02 19:25 → HO.ICU 05-03 17:53 → HO.IMC 05-04 12:47
PROVIDERS: Internal Medicine; Internal Medicine Pulmonary Disease; Physician Assistant; Physician Assistant Medical; Physician Assistant Surgical; Registered Nurse Community Health; Student in an Organized Health Care Education/Training Program; Surgery; Surgery Vascular Surgery; Admitting Provider Student in an Organized Health Care Education/Training Program; Emergency Provider Internal Medicine; PCP Nurse Practitioner; Visit Provider Hospitalist
PROC: 0W9D00Z Drainage of Pericardial Cavity with Drainage Device, Open Approach (ICD-10-PCS; CPT 33025; principal; 2024-05-03 13:40)
PROC: 0Y6C0Z2 Detachment at Right Upper Leg, Mid, Open Approach (ICD-10-PCS; CPT 27590; principal; 2024-05-09 13:00)
DX: I30.9 Acute pericarditis, unspecified (principal); G92.8 Other toxic encephalopathy; N18.6 End stage renal disease; I13.2 Hypertensive heart and chronic kidney disease with heart failure and with stage 5 chronic kidney disease, or end stage renal disease; J96.11 Chronic respiratory failure with hypoxia; E66.2 Morbid (severe) obesity with alveolar hypoventilation; I50.42 Chronic combined systolic (congestive) and diastolic (congestive) heart failure; I31.4 Cardiac tamponade; E11.22 Type 2 diabetes mellitus with diabetic chronic kidney disease; G40.909 Epilepsy, unspecified, not intractable, without status epilepticus; E78.5 Hyperlipidemia, unspecified; I95.9 Hypotension, unspecified; T87.53 Necrosis of amputation stump, right lower extremity; E11.51 Type 2 diabetes mellitus with diabetic peripheral angiopathy without gangrene; D50.9 Iron deficiency anemia, unspecified; D63.1 Anemia in chronic kidney disease; T40.2X5A Adverse effect of other opioids, initial encounter; E11.42 Type 2 diabetes mellitus with diabetic polyneuropathy; I77.6 Arteritis, unspecified; T46.5X5A Adverse effect of other antihypertensive drugs, initial encounter; Z20.822 Contact with and (suspected) exposure to COVID-19; Z68.29 Body mass index [BMI] 29.0-29.9, adult; I50.82 Biventricular heart failure; Z99.2 Dependence on renal dialysis; Z99.81 Dependence on supplemental oxygen; Z86.14 Personal history of Methicillin resistant Staphylococcus aureus infection; Z79.4 Long term (current) use of insulin; Z79.82 Long term (current) use of aspirin; Z79.899 Other long term (current) drug therapy
CPT/HCPCS: 36415; 71045; 71250; 74176; 80048; 80053; 80202; 82040; 82042; 82150; 82595; 82803; 82945; 82947; 83516; 83540; 83605; 83690; 83735; 83986; 84100; 84157; 84443; 85025; 85027; 85610; 85652; 86021; 86038; 86039; 86140; 86157; 86162; 86225; 86235; 86431; 86704; 86706; 86709; 86803; 86850; 86900; 86901; 86923; 87040; 87070; 87073; 87102; 87116; 87205; 87206; 87340; 87389; 87633; 88112; 88304; 88305; 88307; 88311; 89051; 90999; 92610; 93005; 93306; 93308; 94640; 97162; 99285; J0690; J0696; J1171; J1644; J1953; J2003; J2250; J2270; J2310; J2371; J2405; J2598; J2704; J2795; J2919; J3010; J3370; P9016; P9047; Q5106; Q9957

== ENCOUNTER → 2024-05-01 18:53 | Outpatient (BNV) | payer MEDICARE, MEDICAID, SELFPAY | PROVIDERS: Emergency Provider Internal Medicine; PCP Nurse Practitioner; Visit Provider Radiology Diagnostic Radiology | DX: N18.6 End stage renal disease (principal); R59.0 Localized enlarged lymph nodes; J90 Pleural effusion, not elsewhere classified; I31.39 Other pericardial effusion (noninflammatory); R91.8 Other nonspecific abnormal finding of lung field | CPT/HCPCS: 71250; 74176 ==

== ENCOUNTER 2024-05-01 21:34 | Outpatient (BNV) | payer MEDICARE, MEDICAID, SELFPAY | END 2024-05-11 10:20 | PROVIDERS: Admitting Provider Student in an Organized Health Care Education/Training Program; Emergency Provider Internal Medicine; PCP Nurse Practitioner; Visit Provider Radiology Diagnostic Radiology | DX: J84.89 Other specified interstitial pulmonary diseases (principal); I51.7 Cardiomegaly | CPT/HCPCS: 71045 ==

== ENCOUNTER 2024-05-01 21:34 | Outpatient (BNV) | payer MEDICARE, MEDICAID, SELFPAY | END 2024-05-02 07:00 | PROVIDERS: Admitting Provider Student in an Organized Health Care Education/Training Program; Emergency Provider Internal Medicine; PCP Nurse Practitioner; Visit Provider Internal Medicine Cardiovascular Disease | DX: I50.82 Biventricular heart failure (principal); I31.4 Cardiac tamponade | CPT/HCPCS: 93306 ==

== ENCOUNTER 2024-05-01 21:34 | Outpatient (BNV) | payer MEDICARE, MEDICAID, SELFPAY | END 2024-05-06 07:00 | PROVIDERS: Admitting Provider Student in an Organized Health Care Education/Training Program; Emergency Provider Internal Medicine; PCP Nurse Practitioner; Visit Provider Internal Medicine Cardiovascular Disease | DX: I31.39 Other pericardial effusion (noninflammatory) (principal) | CPT/HCPCS: 93308 ==

== ENCOUNTER 2024-05-01 21:34 | Outpatient (BNV) | payer MEDICARE, MEDICAID, SELFPAY | END 2024-05-10 18:57 | PROVIDERS: Admitting Provider Student in an Organized Health Care Education/Training Program; Emergency Provider Internal Medicine; PCP Nurse Practitioner; Visit Provider Internal Medicine Cardiovascular Disease | DX: I48.91 Unspecified atrial fibrillation (principal) | CPT/HCPCS: 93010 ==

== ENCOUNTER → 2024-05-01 21:34 | Outpatient (BNV) | payer MEDICARE, MEDICAID, SELFPAY | PROVIDERS: Admitting Provider Student in an Organized Health Care Education/Training Program; Emergency Provider Internal Medicine; PCP Nurse Practitioner; Visit Provider Physician Assistant Surgical | DX: Z89.511 Acquired absence of right leg below knee (principal) | CPT/HCPCS: 99222; 99232 ==

== ENCOUNTER → 2024-05-01 21:34 | Outpatient (BNV) | payer MEDICARE, MEDICAID, SELFPAY | PROVIDERS: Admitting Provider Student in an Organized Health Care Education/Training Program; Emergency Provider Internal Medicine; PCP Nurse Practitioner; Visit Provider Internal Medicine | DX: I31.4 Cardiac tamponade (principal); I31.39 Other pericardial effusion (noninflammatory); N18.6 End stage renal disease; Z99.2 Dependence on renal dialysis; R21 Rash and other nonspecific skin eruption | CPT/HCPCS: 99222 ==

== ENCOUNTER → 2024-05-01 21:34 | Outpatient (BNV) | payer MEDICARE, MEDICAID, SELFPAY | PROVIDERS: Admitting Provider Student in an Organized Health Care Education/Training Program; Emergency Provider Internal Medicine; PCP Nurse Practitioner; Visit Provider Registered Nurse Community Health | DX: N18.6 End stage renal disease (principal); Z99.2 Dependence on renal dialysis; I30.9 Acute pericarditis, unspecified; R21 Rash and other nonspecific skin eruption | CPT/HCPCS: 99232 ==

== ENCOUNTER → 2024-05-01 21:34 | Outpatient (BNV) | payer MEDICARE, MEDICAID, SELFPAY | PROVIDERS: Admitting Provider Student in an Organized Health Care Education/Training Program; Emergency Provider Internal Medicine; PCP Nurse Practitioner; Visit Provider Student in an Organized Health Care Education/Training Program | DX: I30.9 Acute pericarditis, unspecified (principal); R21 Rash and other nonspecific skin eruption | CPT/HCPCS: 99223; 99233 ==

== ENCOUNTER → 2024-05-01 21:34 | Outpatient (BNV) | payer MEDICARE, MEDICAID, SELFPAY | PROVIDERS: Admitting Provider Student in an Organized Health Care Education/Training Program; Emergency Provider Internal Medicine; PCP Nurse Practitioner; Visit Provider Internal Medicine Cardiovascular Disease | DX: I30.9 Acute pericarditis, unspecified (principal) | CPT/HCPCS: 93010; 99223 ==

== ENCOUNTER → 2024-05-01 21:34 | Outpatient (BNV) | payer MEDICARE, MEDICAID, SELFPAY | PROVIDERS: Admitting Provider Student in an Organized Health Care Education/Training Program; Emergency Provider Internal Medicine; PCP Nurse Practitioner; Visit Provider Physician Assistant Surgical | DX: I31.4 Cardiac tamponade (principal); Z09 Encounter for follow-up examination after completed treatment for conditions other than malignant neoplasm; Z98.890 Other specified postprocedural states; R21 Rash and other nonspecific skin eruption | CPT/HCPCS: 11104; 33025; 99024; 99223 ==

== ENCOUNTER → 2024-05-01 21:34 | Outpatient (BNV) | payer MEDICARE, MEDICAID, SELFPAY | PROVIDERS: Admitting Provider Student in an Organized Health Care Education/Training Program; Emergency Provider Internal Medicine; PCP Nurse Practitioner; Visit Provider Internal Medicine Nephrology | DX: N18.6 End stage renal disease (principal); Z99.2 Dependence on renal dialysis | CPT/HCPCS: 90935; 99232 ==

== ENCOUNTER → 2024-05-01 21:34 | Outpatient (BNV) | payer MEDICARE, MEDICAID, SELFPAY | PROVIDERS: Admitting Provider Student in an Organized Health Care Education/Training Program; Emergency Provider Internal Medicine; PCP Nurse Practitioner | DX: S61.402A Unspecified open wound of left hand, initial encounter (principal); I96 Gangrene, not elsewhere classified | CPT/HCPCS: 99221 ==

== ENCOUNTER → 2024-05-01 21:34 | Outpatient (BNV) | payer MEDICARE, MEDICAID, SELFPAY | PROVIDERS: Admitting Provider Student in an Organized Health Care Education/Training Program; Emergency Provider Internal Medicine; PCP Nurse Practitioner; Visit Provider Internal Medicine Pulmonary Disease | DX: I31.4 Cardiac tamponade (principal); I50.42 Chronic combined systolic (congestive) and diastolic (congestive) heart failure; N18.6 End stage renal disease; Z99.2 Dependence on renal dialysis; I73.9 Peripheral vascular disease, unspecified | CPT/HCPCS: 99233 ==

== ENCOUNTER 2024-05-25 18:39 | Inpatient (IN) | payer MEDICARE, MEDICAID, SELFPAY ==
--- NOTE | ~2024-05-25 | CT_ITS ---
CLINICAL HISTORY: 3 6 amputation, now infected, r o osteo CT of the right femur without contrast Comparison: None Findings: Ytofb-ec-meqqgolo effusion of the right hip is nonspecific. No bony destructive changes to defined septic arthropathy by CT in isolation. Mild-moderate osteoarthritis of the right hip. Degenerative changes include the partially imaged right SI joint. Mild pubic rami remodeling is old/chronic. Linear osteotomy through the femur diaphysis appears uniform without erosions of the recurrent osteomyelitis. Distal femur lucency favored to represent nutrient vessel channel. Low bone mineralization suggested. No erosion to bone to defined osteomyelitis by CT. Dorsal fluid extends to imaged hamstrings. Differential considerations include myositis. No walled-off or well-defined drainable abscess by CT. Mild fluid and stranding is nonspecific including extending to distal staple line. IMPRESSION: 1. No bony destructive changes or soft tissue ulceration to defined osteomyelitis by CT. 2. Distal superficial fluid. Mild distal myositis considered. No drainable abscess by CT. 3. Oogqg-yt-omyqbiaz effusion of the right hip, with osteoarthritis. This document has been electronically signed by: Rolando Senior MD on 05/25/2024 20:23:13
[2024-05-25 18:54] VITALS: BP 196/83; BP 209/55; PULSE 70; PULSE 71; RESP 16; TEMP 36.6; O2SAT 93; O2SAT 95; BMI 24.3
--- NOTE | 2024-05-25 19:11 | ED.GENADULT ---
HPI - General Adult General Chief complaint: General Medical Stated complaint: SURGICAL SITE SWELLING, SNF. R ABOVE KNEE AMPUTEE Time Seen by Provider: 05/25/24 18:48 Source: patient, family and EMS Mode of arrival: EMS Limitations: no limitations History of Present Illness ED Provider: Dr. Snow Garcia HPI narrative: patient comes to the emergency room accompanied by his son. Patient comes in complaining of an infection in his right leg. Patient had BKA on April 11, 2024, followed by an AKA on 05/09/2024 patient was discharged from the hospital approximately 10 days ago. Patient was sent home with a prescription of doxycycline p.o.. Patient is a halfway, compliant with his medications. Despite being on antibiotics, patient's sutures starting getting infected, developed blood blister, now the skin is erythematous and has pain to palpation. Patient denies fever chills. Related Data Home Medications ?Medication ?Instructions ?Recorded ?Confirmed albuterol sulfate 90 mcg/actuation 2 puff inhalation Q4H PRN 04/19/22 05/01/24 aerosol inhaler Shortness Of Breath allopurinol 100 mg tablet 100 mg PO MOWEFR@1600 04/19/22 05/01/24 atorvastatin 40 mg tablet 40 mg PO SUTUTHSA@0900 04/19/22 05/01/24 doxazosin 4 mg tablet 4 mg PO BEDTIME 04/19/22 05/01/24 furosemide 80 mg tablet 80 mg PO SUTUTHSA@0900 04/19/22 05/01/24 ipratropium 0.5 mg-albuterol 3 mg 3 ml inhalation QID PRN Wheezing 04/19/22 05/01/24 (2.5 mg base)/3 mL nebulization soln omeprazole 20 mg capsule,delayed 20 mg PO DAILY@0630 04/19/22 05/01/24 release insulin lispro 100 unit/mL 1 sliding scale dose subcut TIDAC 04/10/23 05/01/24 subcutaneous pen aspirin 81 mg tablet,delayed 81 mg PO SUTUTHSA@09 06/20/23 05/01/24 release pregabalin 75 mg capsule 75 mg PO SUTUTHSA@09,15,21 06/20/23 05/01/24 sucroferric oxyhydroxide 500 mg 500 mg PO TID 01/24/24 05/01/24 chewable tablet (Velphoro) acetaminophen 325 mg tablet 650 mg PO Q4H PRN PAIN/FEVER 04/05/24 05/01/24 aspirin 81 mg tablet,delayed 81 mg PO MOWEFR@1600 04/05/24 05/01/24 release atorvastatin 40 mg tablet 40 mg PO MOWEFR@1600 04/05/24 05/01/24 bisacodyl 10 mg rectal suppository 10 mg MO DAILY PRN Constipation 04/05/24 05/01/24 (Dulcolax (bisacodyl)) carvedilol 6.25 mg tablet 6.25 mg PO BID 04/05/24 05/01/24 fluticasone fur. 100 mcg-umeclid 1 inh inhalation DAILY 04/05/24 05/01/24 62.5 mcg-vilant 25 mcg inhalat.powder (Trelegy Ellipta) furosemide 80 mg tablet 80 mg PO MOWEFR@1600 04/05/24 05/01/24 losartan 25 mg tablet 25 mg PO MOWEFR@1600 04/05/24 05/01/24 losartan 25 mg tablet 25 mg PO SUTUTHSA@0900 04/05/24 05/01/24 pregabalin 75 mg capsule 75 mg PO MOWEFR@1600 04/05/24 05/01/24 sennosides 8.6 mg tablet (senna) 8.6 mg PO DAILY PRN Constipation 04/05/24 05/01/24 insulin glargine 100 unit/mL (3 22 unit subcut BEDTIME 05/01/24 05/01/24 mL) subcutaneous pen (Lantus Solostar U-100 Insulin) Previous Rx's ?Medication ?Instructions ?Recorded PleurX catheter drainage kits #10 ea 10/17/23 fluticasone propionate 50 1 spray intranasal BID #16 grams 12/07/23 mcg/actuation nasal spray,suspension levetiracetam 500 mg tablet 500 mg PO BID #180 tabs 04/17/24 amlodipine 5 mg tablet 5 mg PO DAILY #90 tabs 05/15/24 polyethylene glycol 3350 17 gram 17 g PO DAILY #100 ea 05/15/24 oral powder packet sevelamer carbonate 800 mg tablet 1,600 mg (2 x 800 mg) PO TIDWM #90 05/15/24 tabs oxycodone 5 mg tablet 5 mg PO Q6H PRN pain (scale score 05/16/24 7-10) #14 tabs Allergies Allergy/AdvReac Type Severity Reaction Status Date / Time Iodinated Contrast Media Allergy Severe Facial Verified 05/25/24 19:02 [Contrast Dye] Swelling hydralazine AdvReac Severe vasculitis Verified 05/25/24 21:24 Review of Systems Review of Systems: Constitutional : No Weight loss, No Fever, No Chills, No Night Sweats, No Fatigue, No Malaise ENT/Mouth : No Hearing loss, No Ear Pain, No Nasal Congestion, No Sinus Pain, No Hoarseness, No sore throat, No Rhinorrhea, No Swallowing Difficulty Eyes: No Eye Pain, No Swelling, No Redness, No Foreign Body, No Discharge, No Vision Changes Cardiovascular : No Chest Pain, No SOB, No Dyspnea on Exertion, No Orthopnea, No Edema, No Palpitations Respiratory : No Cough, No Sputum, No Wheezing, No Smoke Exposure, No Dyspnea Gastrointestinal : No Nausea, No Vomiting, No Diarrhea, No Constipation, No abdominal Pain, No Hematochezia, No Melena Genitourinary : no irregular bleeding, No Dysuria, No Urinary Frequency, No Hematuria, No Urinary Incontinence, No Urgency, No Flank Pain, No Urinary Flow Changes, No Hesitancy Musculoskeletal : Infection around the AKA on the right leg Skin : No Skin Lesions, No rash Neuro : No Weakness, No Numbness, No Paresthesias, No Loss of Consciousness, No Dizziness, No Headache Psych : No Anxiety/Panic, No Depression, No SI/HI/AH/VH, No Social Issues, Heme/Lymph: No Bruising, No Bleeding,No Lymphadenopathy Endocrine : No Polyuria, No Polydipsia, No Temperature Intolerance [facility] Past Medical History Medical History Above knee amputation of right lower extremity Left ventricular systolic dysfunction (LVSD) PVD (peripheral vascular disease) Postop check Acute pericardial effusion ESRD needing dialysis Right sided weakness Dehiscence of wound Peripheral arterial disease Cellulitis of right foot Hypertension Dry gangrene HFrEF (heart failure with reduced ejection fraction) ESRD (end stage renal disease) Chronic combined systolic and diastolic CHF (congestive heart failure) Chronic pericardial effusion Arthritis Asthma Restless leg syndrome Acute on chronic systolic and diastolic heart failure, NYHA class 3 Anemia ESRD (end stage renal disease) Occlusive thrombus Pulmonary edema ROBERT (obstructive sleep apnea) Type 2 diabetes mellitus Hyperlipidemia Hypertension A-V fistula ESRD on dialysis Falling Surgical History Status post creation of pericardial window Postop check Hx of right BKA Status post transmetatarsal amputation of right foot History of transmetatarsal amputation of foot History of surgery H/O colonoscopy Recurrent pleural effusion Pleural effusion on right (07/13/23) Family History Family History Father No problems noted. Mother No problems noted. Social History Social History Household Members: Children Household Members Other:: son Housing: Apartment Are you a primary patient care technician to a significant other at home: No Do you presently have visiting nurse or other home services: No Alcohol intake: former Comment: n Patient Tobacco Use Status: Former Tobacco user Tobacco use type: Cigarette Smoked in Last 30 Days: No Second Hand Smoke Exposure: No Use of substances other than those prescribed or required for medical reasons: No Advance Directives: Yes Advance Directives on File: Yes Advance Directives Date on File: 10/04/23 service: No Physical Exam ED Vital Signs: Vital Signs - 24 hr 05/25/24 18:54 05/25/24 20:15 05/25/24 20:30 Temperature 97.9 F 98.4 F Pulse Rate 70 71 71 Respiratory Rate 16 16 Blood Pressure 209/55 H 219/96 H 219/96 H Pulse Oximetry 93 95 Oxygen Delivery Method Room Air Room Air 05/25/24 21:27 05/25/24 22:11 Temperature 98.2 F Pulse Rate 71 72 Respiratory Rate 18 16 Blood Pressure 157/81 H Pulse Oximetry 94 Oxygen Delivery Method Room Air BMI result Body Mass Index 24.3 Const Other: Appearance: Alert. Oriented X3. No acute distress. Eyes: Pupils equal, round and reactive to light. ENT: Pharynx normal. Neck: Normal inspection. Neck supple. No lymph nodes noted. No crepitus CVS: Normal heart rate and rhythm. Pulses normal. Normal S1 and S2 Respiratory: No respiratory distress. Breath sounds normal. No Wheezing. No rales Abdomen: Soft and nontender. No rigidity. No distention. Skin: Skin warm and dry. Normal skin color. Normal skin turgor. Extremities: No lower extremity edema on the left, there is a right AKA, erythematous, see pictures below. Patient has a chronic necrotic fingertip on the right hand Neuro: Oriented X 3. No motor deficit. No sensory deficit. Moving all extremities. No slurred speech. CN 2 through 12 grossly intact Psych: calm, cooperative, normal affect Course Course Course Narrative: all of patient's labs and imaging pending. I discussed with the patient and his son that we will admit the patient once the workup is zone. Patient's leg got infected even while he was taking antibiotics. Medications Administered Discontinued Medications Generic Name Dose Route Start Last Admin Trade Name Freq PRN Reason Stop Dose Admin Carvedilol 12.5 mg 05/25/24 20:29 05/25/24 20:30 Carvedilol 12.5 Mg Tablet PO 05/25/24 20:30 12.5 mg ONCE ONE Administration Protocol Sodium Chloride 1,000 mls @ 999 mls/hr 05/25/24 19:02 05/25/24 20:35 Ns IVCONT 05/25/24 20:02 Infused .Q1H1M ONE Infusion Piperacillin Sod/Tazobactam 50 mls @ 100 mls/hr 05/25/24 19:06 05/25/24 20:03 Sod 3.375 gm/ Sodium Chloride IV 05/25/24 19:35 Infused ONCE ONE Infusion Vancomycin HCl 1,500 mg/ 500 mls @ 333.333 mls/hr 05/25/24 19:06 05/25/24 20:25 Sodium Chloride IV 05/25/24 20:35 333.33 mls/hr ONCE ONE Administration Medical Decision Making Medical Decision Making [facility] Narrative: Patient receiving IV fluids, vancomycin and Zosyn. All of patient's labs pending. No episodes of hypotension, normal heart rate, normal temperature, sepsis is not suspected my interpretation of labs: Patient's white blood cell count 9.7, hemoglobin 8.9 which is at patient's baseline, hematocrit 20.6, platelets 328. Chemistry shows a creatinine of 6.45. Patient known to be a dialysis patient. Normal lactic acid, normal LFTs. CT scan does not show any signs of osteomyelitis or abscess. Since patient failed outpatient treatment, patient was treated already on IV antibiotics and fluids. Sepsis not suspected. Last time that the patient was here, patient had a complicated hospital stay. I discussed the patient with Dr. Trinh from the Medicine team, patient being admitted Differential Diagnosis Differential Diagnoses: The differential diagnosis associated with the presentation includes ( cellulitis, abscess, osteomyelitis) Admission/Observation Consideration of admission/observation: Escalation of care including admission/observation considered Consult Healthcare Provider Management of the patient was discussed with: Hospitalist Lab Data MDM Lab Attestation statement: I reviewed the patient's lab results. 05/25/24 19:23 05/25/24 19:23 Labs: Lab Results 05/25/24 05/25/24 Range/Units 19: 19:25 WBC 9.7 (4.8-10.8) X10*3/uL RBC 3.64 L (4.60-5.80) X10*6/uL Hgb 8.9 L (14.0-18.0) g/dl Hct 28.6 L (42.0-52.0) % MCV 78.6 L (80.0-98.0) fL MCH 24.5 L (27.0-33.0) pg MCHC 31.1 (31.0-36.0) g/dl RDW 17.9 H (11.0-16.0) % Plt Count 328 (160-400) X10*3/uL MPV 10.4 (9.4-12.4) fL Immature Gran % (Auto) 0.4 (0.0-0.4) % Neut % (Auto) 65.8 (45-73) % Lymph % (Auto) 19.5 L (20-40) % [place] % (Auto) 10.8 (2-11) % Eos % (Auto) 3.0 (0-4) % Baso % (Auto) 0.5 (0-2) % Lymph # (Auto) 1.9 (1.2-4.9) X10*3/uL [place] # (Auto) 1.0 (0.1-1.2) X10*3/uL Eos # (Auto) 0.3 (0.0-0.4) X10*3/uL Baso # (Auto) 0.1 (0.0-0.2) X10*3/uL Abs Immat Gran (auto) 0.04 H (0.00-0.03) X10*3/uL Absolute Neuts (auto) 6.4 (2.0-8.3) x10*3/uL Absolute Nucleated RBC 0.000 (0.0-0.012) X10*3/uL Nucleated RBC % (auto) 0.0 (0.0-0.2) /100WBC ESR 73 H (0-15) MM/HR Sodium 139 (135-145) mmol/L Potassium 4.4 (3.3-5.1) mmol/L Chloride 103 (96-108) mmol/L Carbon Dioxide 24 (22-29) mmol/L Anion Gap 16 (12-20) BUN 57 H (9-16) mg/dL Creatinine 6.45 H* (0.5-1.4) mg/dL Estim Creat Clear Calc 9.1 Estimated GFR 9 Random Glucose 146 H (60-115) mg/dL Lactic Acid 0.9 (0.5-2.0) mmol/L Calcium 8.9 (8.4-10.2) mg/dL Total Bilirubin 0.4 (0.0-1.0) mg/dL Direct Bilirubin 0.2 (0.0-0.5) mg/dL AST 32 (5-37) U/L ALT 28 (0-40) U/L Alkaline Phosphatase 172 H (39-117) U/L C-Reactive Protein 7.85 H (< or = 0.50) mg/dL Total Protein 7.0 (6.5-8.0) g/dL Albumin 3.1 L (3.5-5.0) g/dL Independent Interpretation I performed an independent interpretation of an: CT Scan Radiology Impression Discussion of test interpretation with radiology: I have reviewed the radiologist's reading. Radiologist Impression: [id number] effusion of the right hip is nonspecific. No bony destructive changes to defined septic arthropathy by CT in isolation. Mild-moderate osteoarthritis of the right hip. Degenerative changes include the partially imaged right SI joint. Mild pubic rami remodeling is old/chronic. Linear osteotomy through the femur diaphysis appears uniform without erosions of the recurrent osteomyelitis. Distal femur lucency favored to represent nutrient vessel channel. Low bone mineralization suggested. No erosion to bone to defined osteomyelitis by CT. Dorsal fluid extends to imaged hamstrings. Differential considerations include myositis. No walled-off or well-defined drainable abscess by CT. Mild fluid and stranding is nonspecific including extending to distal staple line. IMPRESSION: 1. No bony destructive changes or soft tissue ulceration to defined osteomyelitis by CT. 2. Distal superficial fluid. Mild distal myositis considered. No drainable abscess by CT. 3. [id number] effusion of the right hip, with osteoarthritis. Independent Historian Clinical information obtained from an independent historian. History obtained from or confirmed by: Other ( patient's son) Critical Care Time Critical Care Time Critical Care Time: Yes Total Critical Care Time: 60 Attestation: I have personally provided critical care time. Time includes review of lab data, radiology results, discussion with consultants, and monitoring for potential decompensation. Intervention performed as documented. Discharge Plan Discharge Clinical Impression: Cellulitis Patient Disposition: Admitted As Inpatient
[2024-05-25 19:33] LABS: MANUAL DIFF FLAG NO
[2024-05-25] MEDS: Piperacillin Sodium/Tazobactam 3.375 GM in 0.9 % Sodium Chloride 50 ML IV (19:33)
[2024-05-25] MEDS: 0.9 % Sodium Chloride 1,000 ML 999 ML IVCONT (19:33)
[2024-05-25 19:35] LABS: Basophils Absolute Auto 0.1 X10*3/uL (0.0-0.2); Basophils Percent Auto 0.5 % (0-2); Eosinophils Absolute Auto 0.3 X10*3/uL (0.0-0.4); Hematocrit 28.6 % (42.0-52.0); Hemoglobin 8.9 g/dl (14.0-18.0); Imm Gran Abs Auto 0.04 X10*3/uL (0.00-0.03); Imm Gran Pct Auto 0.4 % (0.0-0.4); Lymphocytes Absolute Auto 1.9 X10*3/uL (1.2-4.9); Lymphocytes Percent Auto 19.5 % (20-40); Mean Corpuscular HGB Conc 31.1 g/dl (31.0-36.0); Mean Corpuscular Hemoglobin 24.5 pg (27.0-33.0); Mean Corpuscular Volume 78.6 fL (80.0-98.0); Mean Platelet Volume 10.4 fL (9.4-12.4); Monocytes Percent Auto 10.8 % (2-11); Neutrophils Absolute Auto 6.4 x10*3/uL (2.0-8.3); Neutrophils Percent Auto 65.8 % (45-73); Platelet Count 328 X10*3/uL (160-400); Red Blood Count 3.64 X10*6/uL (4.60-5.80); Red Cell Distribution Width 17.9 % (11.0-16.0); White Blood Count 9.7 X10*3/uL (4.8-10.8)
--- NOTE | 2024-05-25 19:36 | PC.NURSE ---
Patient GILDARDO from from [facility], son wanted him sent he was sent son said he is edematous and has hematoma over right BKA (just had amputation 2 weeks ago) tip of right middle finger necrotic patient is a dialysis patient right chest permacath diabetic and HTN. Patient changed into a hospital [facility], labs drawn and sent to lab for processing, 20 G IV line established in R AC. Patient medicated per MAY. Patient currently resting in stretcher bed, patients son at bedside, plan of care ongoing.
[2024-05-25 19:49] LABS: Lactic Acid 0.9 mmol/L (0.5-2.0)
[2024-05-25 19:57] LABS: Alanine Aminotransferase 28 U/L (0-40); Albumin Level 3.1 g/dL (3.5-5.0); Alkaline Phosphatase 172 U/L (39-117); Anion Gap 16 (12-20); Aspartate Amino Transferase 32 U/L (5-37); Bilirubin Direct 0.2 mg/dL (0.0-0.5); Bilirubin Total 0.4 mg/dL (0.0-1.0); Blood Urea Nitrogen 57 mg/dL (9-16); C Reactive Protein 7.85 mg/dL (< or = 0.50); Calcium 8.9 mg/dL (8.4-10.2); Carbon Dioxide 24 mmol/L (22-29); Chloride 103 mmol/L (96-108); Creatinine Clr Calc Pharmacy 9.1; Estimated Glomerular Filt Rate 9; Glucose Random 146 mg/dL (60-115); Potassium 4.4 mmol/L (3.3-5.1); Sodium 139 mmol/L (135-145)
[2024-05-25 20:15] VITALS: BP 219/96; PULSE 71; RESP 16; TEMP 36.9; O2SAT 95
[2024-05-25 20:15] LABS: Erythrocyte Sedimentation Rate 73 MM/HR (0-15)
[2024-05-25] MEDS: vancomycin HCL 1,500 MG in 0.9 % Sodium Chloride 500 ML 333.33 MG IV (20:25)
[2024-05-25 20:30] VITALS: BP 219/96; PULSE 71
[2024-05-25] MEDS: carvediloL 12.5 MG TABLET PO (20:30)
[2024-05-25 21:27] VITALS: BP 157/81; PULSE 71; RESP 18
[2024-05-25 22:11] VITALS: PULSE 72; RESP 16; TEMP 36.8; O2SAT 94
--- NOTE | 2024-05-25 22:20 | PM.IMHP ---
History of Present Illness Date of Service: 05/25/24 Chief Complaint: right aka stump erythema 69M PMH recent prolonged admission to [facility] 05/01/24-05/16/24 (for hemopericardium, hydralazine vasculitis, right bka infection requiring aka, new diagnosis of seizure disorder), ESRD, dm, pnd, hfref, htn, hld, chronic hypoxic respiratory failure on 2L home o2 ROBERT on cpap presented with erythem of stump site. patient was at SNF, doing well, son came to visit and noticed new erythema around right AKA stump site. denies drainage, fever, chills, sob, increased pain. in ED CT with diffuse fluid, no drainable collection, concern for possible mysositis. no SIRS criteria, inflammatory markers decreasing. Review of Systems Review of Systems: Yes all other systems are reviewed and are negative [facility] Medical History Above knee amputation of right lower extremity Left ventricular systolic dysfunction (LVSD) PVD (peripheral vascular disease) Postop check Acute pericardial effusion ESRD needing dialysis Right sided weakness Dehiscence of wound Peripheral arterial disease Cellulitis of right foot Hypertension Dry gangrene HFrEF (heart failure with reduced ejection fraction) ESRD (end stage renal disease) Chronic combined systolic and diastolic CHF (congestive heart failure) Chronic pericardial effusion Arthritis Asthma Restless leg syndrome Acute on chronic systolic and diastolic heart failure, NYHA class 3 Anemia ESRD (end stage renal disease) Occlusive thrombus Pulmonary edema ROBERT (obstructive sleep apnea) Type 2 diabetes mellitus Hyperlipidemia Hypertension A-V fistula ESRD on dialysis Falling Family History Father No problems noted. Mother No problems noted. Surgical History Status post creation of pericardial window Postop check Hx of right BKA Status post transmetatarsal amputation of right foot History of transmetatarsal amputation of foot History of surgery H/O colonoscopy Recurrent pleural effusion Pleural effusion on right (07/13/23) Social History Household Members: Children Household Members Other:: son Housing: Apartment Are you a primary director of healthcare systems to a significant other at home: No Do you presently have visiting nurse or other home services: No Alcohol intake: former Comment: n Patient Tobacco Use Status: Former Tobacco user Tobacco use type: Cigarette Smoked in Last 30 Days: No Second Hand Smoke Exposure: No Use of substances other than those prescribed or required for medical reasons: No Advance Directives: Yes Advance Directives on File: Yes Advance Directives Date on File: 10/04/23 service: No Meds Allergies Allergy/AdvReac Type Severity Reaction Status Date / Time Iodinated Contrast Media Allergy Severe Facial Verified 05/25/24 19:02 [Contrast Dye] Swelling hydralazine AdvReac Severe vasculitis Verified 05/25/24 21:24 Active Medications: Current Medications Albuterol/Ipratropium (Albuterol/Iprat 2.5/0.5mg 3 Ml Ampul.Neb) 3 ml INHALE RQ4H WHILE AWAKE PRN PRN Reason: sob Amlodipine Besylate (Amlodipine Besylate 5 Mg Tablet) 5 mg PO DAILY NASREEN; Protocol Aspirin (Aspirin Enteric Coated 81 Mg Tablet.Dr) 81 mg PO DAILY NASREEN Atorvastatin Calcium (Atorvastatin Calcium 40 Mg Tablet) 40 mg PO BEDTIME NASREEN Carvedilol (Carvedilol 6.25 Mg Tablet) 6.25 mg PO BID NASREEN; Protocol Dextrose (Dextrose 50 % 25 Gm/50 Ml Syringe) 25 gm IVPUSH Q15M PRN; Protocol PRN Reason: per Hypoglycemia Standing Ord. Furosemide (Furosemide 40 Mg Tablet) 80 mg PO DAILY NASREEN; Protocol Glucose (Glucose Gel 15 Gm Gel..Gram.) 15 gm PO Q15M PRN; Protocol PRN Reason: per Hypoglycemia Standing Ord. Heparin Sodium (Porcine) (Heparin Sodium,Porcine 5,000 Unit/Ml Vial) 5,000 unit SUBCUT Q8H [facility] Vancomycin HCl 1,000 mg/ (Sodium Chloride) 270 mls @ 270 mls/hr IV DAILY [facility] Insulin Human Lispro (Insulin Lispro 100 Unit/Ml 3 Ml Vial) 0 unit SUBCUT QIDACHS [facility]; Protocol Levetiracetam (Levetiracetam 500 Mg Tablet) 500 mg PO BID [facility] Losartan Potassium (Losartan Potassium 25 Mg Tablet) 25 mg PO DAILY NASREEN; Protocol Oxycodone HCl (Oxycodone Hcl Immed Release 5 Mg Tablet) 5 mg PO Q6H PRN PRN Reason: Pain, Severe (Pain Scale 7-10) Pharmacy Consult (Consult Rx Vancomycin Dosing) 1 each MISCELLANE DAILY PRN PRN Reason: Consult order Pregabalin (Pregabalin 75 Mg Capsule) 75 mg PO DAILY [facility] Sevelamer Carbonate (Sevelamer Carbonate Tablet 800 Mg Tablet) 1,600 mg PO TIDWM [facility] Sodium Chloride (0.9 % Sodium Chloride Flush 3 Ml Syringe) 3 ml IVFLUSH QSHIFT [facility] Home Medications ?Medication ?Instructions ?Recorded ?Confirmed ?Last Taken ?Type albuterol sulfate 90 mcg/actuation 2 puff inhalation Q4H PRN 04/19/22 05/01/24 03/05/24 History aerosol inhaler Shortness Of Breath allopurinol 100 mg tablet 100 mg PO MOWEFR@1600 04/19/22 05/01/24 03/18/24 History atorvastatin 40 mg tablet 40 mg PO SUTUTHSA@0900 04/19/22 05/01/24 03/19/24 History doxazosin 4 mg tablet 4 mg PO BEDTIME 04/19/22 05/01/24 03/18/24 History furosemide 80 mg tablet 80 mg PO SUTUTHSA@0900 04/19/22 05/01/24 03/19/24 History ipratropium 0.5 mg-albuterol 3 mg 3 ml inhalation QID PRN Wheezing 04/19/22 05/01/24 Unknown History (2.5 mg base)/3 mL nebulization soln omeprazole 20 mg capsule,delayed 20 mg PO DAILY@0630 04/19/22 05/01/24 03/19/24 History release insulin lispro 100 unit/mL 1 sliding scale dose subcut TIDAC 04/10/23 05/01/24 03/18/24 History subcutaneous pen aspirin 81 mg tablet,delayed 81 mg PO SUTUTHSA@09 06/20/23 05/01/24 03/19/24 History release pregabalin 75 mg capsule 75 mg PO SUTUTHSA@,15,06/20/23 05/01/24 03/19/24 History sucroferric oxyhydroxide 500 mg 500 mg PO TID 01/24/24 05/01/24 03/19/24 History chewable tablet (Velphoro) acetaminophen 325 mg tablet 650 mg PO Q4H PRN PAIN/FEVER 04/05/24 05/01/24 Unknown History aspirin 81 mg tablet,delayed 81 mg PO MOWEFR@1600 04/05/24 05/01/24 Unknown History release atorvastatin 40 mg tablet 40 mg PO MOWEFR@1600 04/05/24 05/01/24 Unknown History bisacodyl 10 mg rectal suppository 10 mg SD DAILY PRN Constipation 04/05/24 05/01/24 Unknown History (Dulcolax (bisacodyl)) carvedilol 6.25 mg tablet 6.25 mg PO BID 04/05/24 05/01/24 Unknown History fluticasone fur. 100 mcg-umeclid 1 inh inhalation DAILY 04/05/24 05/01/24 Unknown History 62.5 mcg-vilant 25 mcg inhalat.powder (Trelegy Ellipta) furosemide 80 mg tablet 80 mg PO MOWEFR@1600 04/05/24 05/01/24 Unknown History losartan 25 mg tablet 25 mg PO MOWEFR@1600 04/05/24 05/01/24 Unknown History losartan 25 mg tablet 25 mg PO SUTUTHSA@0900 04/05/24 05/01/24 Unknown History pregabalin 75 mg capsule 75 mg PO MOWEFR@1600 04/05/24 05/01/24 Unknown History sennosides 8.6 mg tablet (senna) 8.6 mg PO DAILY PRN Constipation 04/05/24 05/01/24 Unknown History insulin glargine 100 unit/mL (3 22 unit subcut BEDTIME 05/01/24 05/01/24 Unknown History mL) subcutaneous pen (Lantus Solostar U-100 Insulin) Physical Exam Vital Signs and Narrative: Vital Signs: Last Vital Signs Temp 98.2 F 05/25/24 22:11 Pulse 72 05/25/24 22:11 Resp 16 05/25/24 22:11 BP 157/81 H 05/25/24 21:27 Pulse Ox 94 05/25/24 22:11 O2 Del Method Room Air 05/25/24 22:11 BMI result Body Mass Index 24.3 General: AO X 3, no acute distress Resp: CTA bilateral, no accessory muscles used CVS: S1,S2,RRR GI: soft, non tender, non distended Neuro: motor grossly intact, alert Psych: appropriate affect, appropriate insight Results Labs 05/25/24 19:23 05/25/24 19:23 Labs: Laboratory Results - last 24 hr 05/25/24 05/25/24 19:23 19:25 MCV 78.6 L MCH 24.5 L MCHC 31.1 RDW 17.9 H Plt Count 328 MPV 10.4 Immature Gran % (Auto) 0.4 Neut % (Auto) 65.8 Lymph % (Auto) 19.5 L [place] % (Auto) 10.8 Eos % (Auto) 3.0 Baso % (Auto) 0.5 Lymph # (Auto) 1.9 [place] # (Auto) 1.0 Eos # (Auto) 0.3 Baso # (Auto) 0.1 Abs Immat Gran (auto) 0.04 H Absolute Neuts (auto) 6.4 Absolute Nucleated RBC 0.000 Nucleated RBC % (auto) 0.0 ESR 73 H Anion Gap 16 Estim Creat Clear Calc 9.1 Estimated GFR 9 Random Glucose 146 H Lactic Acid 0.9 Calcium 8.9 Total Bilirubin 0.4 Direct Bilirubin 0.2 AST 32 ALT 28 Alkaline Phosphatase 172 H C-Reactive Protein 7.85 H Total Protein 7.0 Albumin 3.1 L Assessment and Plan (1) Cellulitis: Status: Acute Plan 69M PMH recent prolonged admission to [facility] 05/01/24-05/16/24 (for hemopericardium, hydralazine vasculitis, right bka infection requiring aka, new diagnosis of seizure disorder), ESRD, dm, pvd, hfref, htn, hld, chronic hypoxic respiratory failure on 2L home o2 ROBERT on cpap presented with erythem of stump site Cellulitis of right above-knee amputation site History of MRSA and Enterococcus faecalis Continue vancomycin Seizure disorder [facility] End-stage renal disease Continue phosphate binders, nephro eval, hemodialysis Diabetes Insulin sliding scale Peripheral vascular disease Aspirin, statin CHF with reduced ejection fraction Carvedilol, losartan Hypertension Losartan, carvedilol, amlodipine Chronic hypoxic respiratory failure Stable ROBERT CPAP at night DVT prophylaxis with heparin subQ Full code Given patient's cellulitis at site of previous amputation failure and history of multidrug resistant organisms expected require at least 2 midnights inpatient Quality Stroke Does the patient have a stroke diagnosis?: No VTE Prior VTE?: No VTE Risk Level:: Medical - moderate - high VTE Device Contraindication: Treatment Not Indicated VTE Drug Contraindication: N/A - Med Ordered
[2024-05-25 22:25] LABS: Glucose, Whole Blood 169 mg/dL (60-115)
[2024-05-25] MEDS: levETIRAcetam 500 MG TABLET PO (22:45)
[2024-05-25] MEDS: Heparin Sodium,Porcine 5,000 UNIT/ML VIAL 5000 UNIT SUBCUT (22:45)
[2024-05-25] MEDS: oxyCODONE HCl Immed Release 5 MG TABLET PO (22:45)
[2024-05-25] MEDS: 0.9 % Sodium Chloride Flush 3 ML SYRINGE IVFLUSH (23:45)
[2024-05-26] VITALS (11 sets, daily range): BP systolic 104–188; BP diastolic 50–118; PULSE 69–78; RESP 14–18; TEMP 36.7–37.1; O2SAT 92–100
[2024-05-26 07:01] LABS: Glucose, Whole Blood 177 mg/dL (60-115)
[2024-05-26 07:02] LABS: Anion Gap 16 (12-20); Blood Urea Nitrogen 66 mg/dL (9-16); Calcium 8.9 mg/dL (8.4-10.2); Carbon Dioxide 23 mmol/L (22-29); Chloride 106 mmol/L (96-108); Creatinine Clr Calc Pharmacy 8.2; Estimated Glomerular Filt Rate 8; Glucose Random 183 mg/dL (60-115); Potassium 4.3 mmol/L (3.3-5.1); Sodium 141 mmol/L (135-145)
[2024-05-26 07:09] LABS: Hematocrit 28.2 % (42.0-52.0); Hemoglobin 8.4 g/dl (14.0-18.0); Mean Corpuscular HGB Conc 29.8 g/dl (31.0-36.0); Mean Corpuscular Hemoglobin 23.8 pg (27.0-33.0); Mean Corpuscular Volume 79.9 fL (80.0-98.0); Platelet Count 344 X10*3/uL (160-400); Red Blood Count 3.53 X10*6/uL (4.60-5.80); Red Cell Distribution Width 18.1 % (11.0-16.0); White Blood Count 9.4 X10*3/uL (4.8-10.8)
--- NOTE | 2024-05-26 07:12 | HO.PM.IMPN ---
Subjective Subjective Date of Service: 05/26/24 Interval History: f/u on probable cellulitis of AKA stump no fever, no pain Physical Exam Vital Signs: Vital Signs: Last Vital Signs Temp 98.1 F 05/26/24 05:40 Pulse 78 05/26/24 05:40 Resp 18 05/26/24 05:40 BP 153/55 H 05/26/24 05:40 Pulse Ox 99 05/26/24 05:40 O2 Del Method Nasal Cannula 05/26/24 05:40 O2 Flow Rate 2 05/26/24 05:40 BMI result Body Mass Index 24.3 Const: Other: Appearance: Alert. Oriented X3. No acute distress. CVS: Normal heart rate and rhythm. Pulses normal. Normal S1 and S2 Respiratory: No respiratory distress. Breath sounds normal. No Wheezing. No rales Abdomen: Soft and nontender. No rigidity. No distention. Skin: No rash Extremities: No lower extremity edema on the left, there is a right AKA, erythematous, see pictures below. Patient has a chronic necrotic fingertip on the right hand 05/25 05/26 Neuro: Oriented X 3. No motor deficit. No sensory deficit. Moving all extremities. No slurred speech. CN 2 through 12 grossly intact Psych: calm, cooperative, normal affect Objective Data Active Medications Acetaminophen (Acetaminophen 325 Mg Tablet) 650 mg PO Q6H PRN PRN Reason: Pain, Mild 1-3,fever,headache Albuterol/Ipratropium (Albuterol/Iprat 2.5/0.5mg 3 Ml Ampul.Neb) 3 ml INHALE RQ4H WHILE AWAKE PRN PRN Reason: sob Amlodipine Besylate (Amlodipine Besylate 5 Mg Tablet) 5 mg PO DAILY [facility]; Protocol Aspirin (Aspirin Enteric Coated 81 Mg Tablet.Dr) 81 mg PO DAILY [facility] Atorvastatin Calcium (Atorvastatin Calcium 40 Mg Tablet) 40 mg PO BEDTIME [facility] Calcium Carbonate (Calcium Carbonate 750 Mg Tab.Chew) 750 mg PO Q4H PRN PRN Reason: Heartburn Carvedilol (Carvedilol 6.25 Mg Tablet) 6.25 mg PO BID [facility]; Protocol Dextrose (Dextrose 50 % 25 Gm/50 Ml Syringe) 25 gm IVPUSH Q15M PRN; Protocol PRN Reason: per Hypoglycemia Standing Ord. Furosemide (Furosemide 40 Mg Tablet) 80 mg PO DAILY [facility]; Protocol Glucose (Glucose Gel 15 Gm Gel..Gram.) 15 gm PO Q15M PRN; Protocol PRN Reason: per Hypoglycemia Standing Ord. Heparin Sodium (Porcine) (Heparin Sodium,Porcine 5,000 Unit/Ml Vial) 5,000 unit SUBCUT Q8H [facility] Last Admin: 05/25/24 22:45 Dose: 5,000 unit Documented By: ANITRA Vancomycin HCl 1,000 mg/ (Sodium Chloride) 270 mls @ 270 mls/hr IV DAILY [facility] Insulin Human Lispro (Insulin Lispro 100 Unit/Ml 3 Ml Vial) 0 unit SUBCUT QIDACHS [facility]; Protocol Levetiracetam (Levetiracetam 500 Mg Tablet) 500 mg PO BID [facility] Last Admin: 05/25/24 22:45 Dose: 500 mg Documented By: ANITRA Losartan Potassium (Losartan Potassium 25 Mg Tablet) 25 mg PO DAILY [facility]; Protocol Magnesium Hydroxide (Milk Of Magnesia 30 Ml Oral.Susp) 30 ml PO DAILY PRN PRN Reason: Constipation Melatonin (Melatonin 3 Mg Tablet) 6 mg PO BEDTIME PRN PRN Reason: Insomnia Oxycodone HCl (Oxycodone Hcl Immed Release 5 Mg Tablet) 5 mg PO Q6H PRN PRN Reason: Pain, Severe (Pain Scale 7-10) Last Admin: 05/25/24 22:45 Dose: 5 mg Documented By: ANITRA Pharmacy Consult (Consult Rx Vancomycin Dosing) 1 each MISCELLANE DAILY PRN PRN Reason: Consult order Pregabalin (Pregabalin 75 Mg Capsule) 75 mg PO DAILY [facility] Sevelamer Carbonate (Sevelamer Carbonate Tablet 800 Mg Tablet) 1,600 mg PO TIDWM [facility] Sodium Chloride (0.9 % Sodium Chloride Flush 3 Ml Syringe) 3 ml IVFLUSH QSHIFT [facility] Last Admin: 05/25/24 23:45 Dose: 3 ml Documented By: ANITRA Labs 05/26/24 05:37 05/26/24 05:37 Labs: Laboratory Results - last 24 hr 05/25/24 05/25/24 05/25/24 19:23 19:25 22:21 MCV 78.6 L MCH 24.5 L MCHC 31.1 RDW 17.9 H Plt Count 328 MPV 10.4 Immature Gran % (Auto) 0.4 Neut % (Auto) 65.8 Lymph % (Auto) 19.5 L Price % (Auto) 10.8 Eos % (Auto) 3.0 Baso % (Auto) 0.5 Lymph # (Auto) 1.9 Price # (Auto) 1.0 Eos # (Auto) 0.3 Baso # (Auto) 0.1 Abs Immat Gran (auto) 0.04 H Absolute Neuts (auto) 6.4 Absolute Nucleated RBC 0.000 Nucleated RBC % (auto) 0.0 ESR 73 H Anion Gap 16 Estim Creat Clear Calc 9.1 Estimated GFR 9 POC Glucose 169 H Random Glucose 146 H Lactic Acid 0.9 Calcium 8.9 Total Bilirubin 0.4 Direct Bilirubin 0.2 AST 32 ALT 28 Alkaline Phosphatase 172 H C-Reactive Protein 7.85 H Total Protein 7.0 Albumin 3.1 L 05/26/24 05/26/24 05:37 06:57 MCV 79.9 L MCH 23.8 L MCHC 29.8 L RDW 18.1 H Plt Count 344 MPV 11.0 Immature Gran % (Auto) Neut % (Auto) Lymph % (Auto) Price % (Auto) Eos % (Auto) Baso % (Auto) Lymph # (Auto) Price # (Auto) Eos # (Auto) Baso # (Auto) Abs Immat Gran (auto) Absolute Neuts (auto) Absolute Nucleated RBC 0.000 Nucleated RBC % (auto) 0.0 ESR Anion Gap 16 Estim Creat Clear Calc 8.2 Estimated GFR 8 POC Glucose 177 H Random Glucose 183 H Lactic Acid Calcium 8.9 Total Bilirubin Direct Bilirubin AST ALT Alkaline Phosphatase C-Reactive Protein Total Protein Albumin Assessment and Plan (1) Cellulitis: Status: Acute (2) Hypertension: Status: Chronic Plan 69M PMH recent [place] [facility]16[place] (for hemopericardium, hydralazine vasculitis, right bka infection requiring aka, new diagnosis of seizure disorder), ESRD, dm, pvd, hfref, htn, hld, chronic hypoxic respiratory failure on 2L home o2 ROBERT on cpap presented with erythem of stump site Cellulitis of right above-knee amputation site History of MRSA and Enterococcus faecalis Continue vancomycin for gram positive, zosyn for gram negative coverage vascular consult Seizure disorder Keppra End-stage renal disease Continue phosphate binders, nephro eval, hemodialysis Diabetes Insulin sliding scale resume lantus at bedtime Peripheral vascular disease Aspirin, statin CHF with reduced ejection fraction Carvedilol, losartan, lasix Hypertension Losartan, carvedilol, amlodipine Chronic hypoxic respiratory failure Stable ROBERT CPAP at night DVT prophylaxis with heparin subQ Full code Given patient's cellulitis at site of previous amputation failure and history of multidrug resistant organisms expected require at least 2 midnights inpatient Quality Stroke Does the patient have a stroke diagnosis?: No VTE Prior VTE?: No VTE Risk Level:: Medical - moderate - high VTE Device Contraindication: Treatment Not Indicated VTE Drug Contraindication: N/A - Med Ordered
[2024-05-26] MEDS: Heparin Sodium,Porcine 5,000 UNIT/ML VIAL 5000 UNIT SUBCUT ×3 (07:19→22:40)
[2024-05-26] MEDS: Sevelamer Carbonate Tablet 800 MG TABLET 1600 MG PO ×3 (07:20→18:01)
[2024-05-26] MEDS: 0.9 % Sodium Chloride Flush 3 ML SYRINGE IVFLUSH ×2 (07:22→15:35)
--- NOTE | 2024-05-26 07:26 | PC.NURSE ---
Care of Pt assumed at change of shift. Pt is awake, alert and oriented x3. chief recordist assists Pt with breakfast. Pt refuses AM insulin of 2 units for a POC of 177. He states he fears his BS will drop too much from the insulin and will not take it. Pt educated on the importance of insulin--chief recordist Solie present and assists with interpretation. 2 unit of insulin discarded in sharps container in pyxis room.
--- NOTE | 2024-05-26 07:50 | PC.NURSE ---
Hospitalist at bedside.
--- NOTE | 2024-05-26 07:56 | PHA.MEDREC ---
Addendum entered by Arely White RPh 05/26/24 08:37: REVIEWED BY [facility] Original Note: Pharmacy Consult ? Medication Reconciliation Pharmacy has completed the medication reconciliation. Utilized list from [facility].
[2024-05-26] MEDS: oxyCODONE HCl Immed Release 5 MG TABLET PO ×2 (09:00→18:51)
--- NOTE | 2024-05-26 09:28 | P.CONGS_ITS ---
History of Present Illness Consult details Consult date: 05/26/24 Requesting physician: Hamlet Rai Narrative: 69-year-old Vietnamese-speaking male presenting to the emergency department for evaluation of a possible right AKA infection. He was multiple medical problems including end-stage renal disease, diabetes mellitus, PND, heart failure with reduced ejection fraction, hyperlipidemia, hypertension, obstructive sleep apnea on CPAP and was recently admitted for hemopericardium and hydralazine vasculitis. He underwent a previous right BKA which became infected and subsequently returned to the OR for a right AKA on 05/09/2024 (Dr. Cannon). Patient is currently in a SNF and was noted to have new erythema involving the lateral surface of the AKA stump with no bleeding or purulence discharge. CT reveals what appeared to be postoperative changes. WBC is normal. Review of Systems 2 Review of Systems: Yes Unobtainable due to mental condition PMFSH Past Medical History Medical History Above knee amputation of right lower extremity Left ventricular systolic dysfunction (LVSD) PVD (peripheral vascular disease) Postop check Acute pericardial effusion ESRD needing dialysis Right sided weakness Dehiscence of wound Peripheral arterial disease Cellulitis of right foot Hypertension Dry gangrene HFrEF (heart failure with reduced ejection fraction) ESRD (end stage renal disease) Chronic combined systolic and diastolic CHF (congestive heart failure) Chronic pericardial effusion Arthritis Asthma Restless leg syndrome Acute on chronic systolic and diastolic heart failure, NYHA class 3 Anemia ESRD (end stage renal disease) Occlusive thrombus Pulmonary edema ROBERT (obstructive sleep apnea) Type 2 diabetes mellitus Hyperlipidemia Hypertension A-V fistula ESRD on dialysis Falling Family History Family History Father No problems noted. Mother No problems noted. Surgical History Surgical History Status post creation of pericardial window Postop check Hx of right BKA Status post transmetatarsal amputation of right foot History of transmetatarsal amputation of foot History of surgery H/O colonoscopy Recurrent pleural effusion Pleural effusion on right (07/13/23) Social History Social History Household Members: Children Household Members Other:: son Housing: Apartment Are you a primary neurocritical care physician to a significant other at home: No Do you presently have visiting nurse or other home services: No Alcohol intake: former Comment: n Patient Tobacco Use Status: Former Tobacco user Tobacco use type: Cigarette Smoked in Last 30 Days: No Second Hand Smoke Exposure: No Use of substances other than those prescribed or required for medical reasons: No Advance Directives: Yes Advance Directives on File: Yes Advance Directives Date on File: 10/04/23 Nutrition Risks: No Nutritional Risk service: No Meds Allergies Allergy/AdvReac Type Severity Reaction Status Date / Time Iodinated Contrast Media Allergy Severe Facial Verified 05/25/24 19:02 [Contrast Dye] Swelling hydralazine AdvReac Severe vasculitis Verified 05/25/24 21:24 Active Medications: Current Medications Acetaminophen (Acetaminophen 325 Mg Tablet) 650 mg PO Q6H PRN PRN Reason: Pain, Mild 1-3,fever,headache Albuterol/Ipratropium (Albuterol/Iprat 2.5/0.5mg 3 Ml Ampul.Neb) 3 ml INHALE RQ4H WHILE AWAKE PRN PRN Reason: sob Allopurinol (Allopurinol 100 Mg Tablet) 100 mg PO MOWEFR@1600 [facility] Amlodipine Besylate (Amlodipine Besylate 10 Mg Tablet) 10 mg PO DAILY [facility]; Protocol Aspirin (Aspirin Enteric Coated 81 Mg Tablet.) 81 mg PO MOWEFR@1600 [facility] Aspirin (Aspirin Enteric Coated 81 Mg Tablet.) 81 mg PO SUTUTHSA@09 [facility] Atorvastatin Calcium (Atorvastatin Calcium 40 Mg Tablet) 40 mg PO MOWEFR@1600 [facility] Atorvastatin Calcium (Atorvastatin Calcium 40 Mg Tablet) 40 mg PO SUTUTHSA@0900 [facility] Calcium Carbonate (Calcium Carbonate 750 Mg Tab.Chew) 750 mg PO Q4H PRN PRN Reason: Heartburn Calcium Carbonate (Calcium Oyster Shell Elemental 500 Mg Tablet) 500 mg PO TID [facility] Carvedilol (Carvedilol 12.5 Mg Tablet) 12.5 mg PO BID [facility]; Protocol Dextrose (Dextrose 50 % 25 Gm/50 Ml Syringe) 25 gm IVPUSH Q15M PRN; Protocol PRN Reason: per Hypoglycemia Standing Ord. Docusate Sodium (Docusate Sodium 100 Mg Capsule) 100 mg PO DAILY [facility] Doxazosin Mesylate (Doxazosin Mesylate 2 Mg Tablet) 4 mg PO BEDTIME [facility]; Protocol Fluticasone/Umeclidinium/Vilanterol (Fluticasone/Umeclidinium/Vilanterol 100/62.5/25 Blst.W.Dev) 1 puff INHALE DAILY [facility] Furosemide (Furosemide 40 Mg Tablet) 80 mg PO MOWEFR@1600 [facility]; Protocol Furosemide (Furosemide 40 Mg Tablet) 80 mg PO SUTUTHSA@0900 [facility]; Protocol Glucose (Glucose Gel 15 Gm Gel..Gram.) 15 gm PO Q15M PRN; Protocol PRN Reason: per Hypoglycemia Standing Ord. Heparin Sodium (Porcine) (Heparin Sodium,Porcine 5,000 Unit/Ml Vial) 5,000 unit SUBCUT Q8H [facility] Last Admin: 05/26/24 07:19 Dose: 5,000 unit Vancomycin HCl 1,000 mg/ (Sodium Chloride) 270 mls @ 270 mls/hr IV DAILY [facility] Piperacillin Sod/Tazobactam (Sod 2.25 gm/ Sodium Chloride) 50 mls @ 100 mls/hr IV Q8H [facility] Insulin Glargine (Insulin Glargine,Hum.Rec.Anlog 100 Unit/Ml 10 Ml Vial) 22 unit SUBCUT BEDTIME [facility] Insulin Human Lispro (Insulin Lispro 100 Unit/Ml 3 Ml Vial) 0 unit SUBCUT QIDACHS [facility]; Protocol Last Admin: 05/26/24 07:21 Dose: Not Given Levetiracetam (Levetiracetam 1,000 Mg Tablet) 1,000 mg PO BID [facility] Losartan Potassium (Losartan Potassium 25 Mg Tablet) 25 mg PO MOWEFR@1600 [facility]; Protocol Losartan Potassium (Losartan Potassium 25 Mg Tablet) 25 mg PO SUTUTHSA@0900 [facility]; Protocol Magnesium Hydroxide (Milk Of Magnesia 30 Ml Oral.Susp) 30 ml PO DAILY PRN PRN Reason: Constipation Melatonin (Melatonin 3 Mg Tablet) 6 mg PO BEDTIME PRN PRN Reason: Insomnia Omeprazole (Omeprazole 20 Mg Capsule.Dr) 20 mg PO DAILY@0630 [facility] Oxycodone HCl (Oxycodone Hcl Immed Release 5 Mg Tablet) 5 mg PO Q6H PRN PRN Reason: Pain, Severe (Pain Scale 7-10) Last Admin: 05/26/24 09:00 Dose: 5 mg Pharmacy Consult (Consult Rx Vancomycin Dosing) 1 each MISCELLANE DAILY PRN PRN Reason: Consult order Pregabalin (Pregabalin 75 Mg Capsule) 75 mg PO TID [facility] Sevelamer Carbonate (Sevelamer Carbonate Tablet 800 Mg Tablet) 1,600 mg PO TIDWM [facility] Last Admin: 05/26/24 07:20 Dose: 1,600 mg Sodium Chloride (0.9 % Sodium Chloride Flush 3 Ml Syringe) 3 ml IVFLUSH QSHIFT [facility] Last Admin: 05/26/24 07:22 Dose: 3 ml Tramadol HCl (Tramadol Hcl 50 Mg Tablet) 25 mg PO Q6H PRN PRN Reason: Severe Pain (Scale Score 7-10) Home Medications ?Medication ?Instructions ?Recorded ?Confirmed ?Last Taken ?Type allopurinol 100 mg tablet 100 mg PO MOWEFR@1600 04/19/22 05/26/24 03/18/24 History atorvastatin 40 mg tablet 40 mg PO SUTUTHSA@0900 04/19/22 05/26/24 03/19/24 History doxazosin 4 mg tablet 4 mg PO BEDTIME 04/19/22 05/26/24 03/18/24 History furosemide 80 mg tablet 80 mg PO SUTUTHSA@0900 04/19/22 05/26/24 03/19/24 History omeprazole 20 mg capsule,delayed 20 mg PO DAILY@0630 04/19/22 05/26/24 03/19/24 History release insulin lispro 100 unit/mL See Rx Instructions .Route .COMPLEX 04/10/23 05/26/24 03/18/24 History subcutaneous pen aspirin 81 mg tablet,delayed 81 mg PO SUTUTHSA@0900 06/20/23 05/26/24 03/19/24 History release pregabalin 75 mg capsule 75 mg PO TID 06/20/23 05/26/24 03/19/24 History sucroferric oxyhydroxide 500 mg 500 mg PO TIDWM 01/24/24 05/26/24 03/19/24 History chewable tablet (Velphoro) aspirin 81 mg tablet,delayed 81 mg PO MOWEFR@1600 04/05/24 05/26/24 Unknown History release atorvastatin 40 mg tablet 40 mg PO MOWEFR@1600 04/05/24 05/26/24 Unknown History fluticasone fur. 100 mcg-umeclid 1 inh inhalation DAILY 04/05/24 05/26/24 Unknown History 62.5 mcg-vilant 25 mcg inhalat.powder (Trelegy Ellipta) furosemide 80 mg tablet 80 mg PO MOWEFR@1600 04/05/24 05/26/24 Unknown History losartan 25 mg tablet 25 mg PO MOWEFR@1600 04/05/24 05/26/24 Unknown History losartan 25 mg tablet 25 mg PO SUTUTHSA@0900 04/05/24 05/26/24 Unknown History insulin glargine 100 unit/mL (3 22 unit subcut BEDTIME 05/01/24 05/26/24 Unknown History mL) subcutaneous pen (Lantus Solostar U-100 Insulin) acetaminophen 500 mg tablet 1,000 mg PO Q8H PRN Pain 05/26/24 05/26/24 Unknown History amlodipine 10 mg tablet 10 mg PO DAILY 05/26/24 05/26/24 Unknown History calcium carbonate (Calcium 500) 500 mg PO TID 05/26/24 05/26/24 Unknown History carvedilol 12.5 mg tablet 12.5 mg PO BID 05/26/24 05/26/24 Unknown History docusate sodium 100 mg capsule 100 mg PO DAILY 05/26/24 05/26/24 Unknown History doxycycline monohydrate 100 mg 100 mg PO BID 05/26/24 05/26/24 Unknown History capsule insulin lispro 100 unit/mL See Rx Instructions .Route .COMPLEX 05/26/24 05/26/24 Unknown History subcutaneous solution (Humalog U-100 Insulin) levetiracetam 1,000 mg tablet 1,000 mg PO BID 05/26/24 05/26/24 Unknown History (Kevicki) tramadol 25 mg tablet 25 mg PO Q6H PRN Severe Pain 05/26/24 05/26/24 Unknown History (Scale Score 7-10) Physical Exam 2 Vital Signs: Vital Signs: Last Vital Signs Temp 98.1 F 05/26/24 05:40 Pulse 76 05/26/24 07:19 Resp 18 05/26/24 07:19 BP 188/53 H 05/26/24 07:19 Pulse Ox 95 05/26/24 07:19 O2 Del Method Room Air 05/26/24 07:19 O2 Flow Rate 2 05/26/24 05:40 BMI result Body Mass Index 24.3 Const: General: comfortable and no acute distress Nutritional Appearance: w ell nourished Resp: Effort & Inspection: normal respiratory effort, no audible wheezes, no cough and no respiratory distress GI: Inspection: Yes normal to inspection Extrem: Other: Right AKA stump with intact sutures and some ecchymosis involving the anterior skin. There is some mild erythema in the lateral surface with no fluctuance to palpation. No purulence discharge could be identified. Results Labs 05/26/24 05:37 05/26/24 05:37 Labs: Abnormal lab results 05/25/24 05/25/24 05/25/24 Range/Units 19:23 19: 22:21 RBC 3.64 L (4.60-5.80) X10*6/uL Hgb 8.9 L (14.0-18.0) g/dl Hct 28.6 L (42.0-52.0) % MCV 78.6 L (80.0-98.0) fL MCH 24.5 L (27.0-33.0) pg MCHC (31.0-36.0) g/dl RDW 17.9 H (11.0-16.0) % Lymph % (Auto) 19.5 L (20-40) % Abs Immat Gran (auto) 0.04 H (0.00-0.03) X10*3/uL ESR 73 H (0-15) MM/HR BUN 57 H (9-16) mg/dL Creatinine 6.45 H* (0.5-1.4) mg/dL POC Glucose 169 H (60-115) mg/dL Random Glucose 146 H (60-115) mg/dL Alkaline Phosphatase 172 H (39-117) U/L C-Reactive Protein 7.85 H (< or = 0.50) mg/dL Albumin 3.1 L (3.5-5.0) g/dL 05/26/24 05/26/24 Range/Units 05:37 06:57 RBC 3.53 L (4.60-5.80) X10*6/uL Hgb 8.4 L (14.0-18.0) g/dl Hct 28.2 L (42.0-52.0) % MCV 79.9 L (80.0-98.0) fL MCH 23.8 L (27.0-33.0) pg MCHC 29.8 L (31.0-36.0) g/dl RDW 18.1 H (11.0-16.0) % Lymph % (Auto) (20-40) % Abs Immat Gran (auto) (0.00-0.03) X10*3/uL ESR (0-15) MM/HR BUN 66 H (9-16) mg/dL Creatinine 7.14 H* (0.5-1.4) mg/dL POC Glucose 177 H (60-115) mg/dL Random Glucose 183 H (60-115) mg/dL Alkaline Phosphatase (39-117) U/L C-Reactive Protein (< or = 0.50) mg/dL Albumin (3.5-5.0) g/dL Short CBC 05/25/24 05/26/24 Range/Units 19:23 05:37 WBC 9.7 9.4 (4.8-10.8) X10*3/uL Hgb 8.9 L 8.4 L (14.0-18.0) g/dl Hct 28.6 L 28.2 L (42.0-52.0) % Plt Count 328 344 (160-400) X10*3/uL BMP 05/25/24 05/26/24 19:23 05:37 Sodium 139 141 Potassium 4.4 4.3 Chloride 103 106 Carbon Dioxide 24 23 BUN 57 H 66 H Creatinine 6.45 H* 7.14 H* Calcium 8.9 8.9 Liver Function 05/25/24 Range/Units 19:23 Total Bilirubin 0.4 (0.0-1.0) mg/dL Direct Bilirubin 0.2 (0.0-0.5) mg/dL AST 32 (5-37) U/L ALT 28 (0-40) U/L Alkaline Phosphatase 172 H (39-117) U/L Albumin 3.1 L (3.5-5.0) g/dL All other labs normal. Assessment and Plan (1) AKA stump complication: Status: Acute Plan 69-year-old male patient returning for re-evaluation of his right AKA stump. Examination today reveals some mild postoperative changes with a light erythema in the lateral surface with no definite abscess. A slight ecchymosis is also identified in the anterior surface mid incision. The wounds are clean and intact without evidence of underlying abscess. Recommend short course of IV antibiotics. No debridement or incision and drainage is required at this time. I will continue to monitor the wound. Procedures Date of Service Date of Service: 05/26/24
[2024-05-26] MEDS: carvediloL 12.5 MG TABLET PO ×2 (09:36→21:24)
[2024-05-26] MEDS: Aspirin Enteric Coated 81 MG TABLET.DR PO ×2 (09:36→09:47)
[2024-05-26] MEDS: Pregabalin 75 MG CAPSULE PO ×3 (09:36→21:24)
[2024-05-26] MEDS: Losartan Potassium 25 MG TABLET PO ×2 (09:36→09:45)
[2024-05-26] MEDS: Piperacillin Sodium/Tazobactam 2.25 GM in 0.9 % Sodium Chloride 50 ML IV ×2 (09:37→18:00)
[2024-05-26] MEDS: Docusate Sodium 100 MG CAPSULE PO (09:37)
[2024-05-26] MEDS: Furosemide 40 MG TABLET 80 MG PO (09:37)
[2024-05-26] MEDS: amLODIPine Besylate 10 MG TABLET PO (09:37)
[2024-05-26] MEDS: Atorvastatin Calcium 40 MG TABLET PO (09:37)
[2024-05-26] MEDS: levETIRAcetam 1,000 MG TABLET 1000 MG PO ×2 (09:37→21:25)
--- NOTE | 2024-05-26 09:46 | PC.NURSE ---
messaged pharmacy for missing medication
--- NOTE | 2024-05-26 10:36 | MHC.CM.PN ---
PT FROM [facility] WHERE HE WILL RETURN WHEN DCD
[2024-05-26 13:26] LABS: Glucose, Whole Blood 211 mg/dL (60-115)
[2024-05-26] MEDS: Insulin Lispro 100 UNIT/ML 3 ML VIAL SUBCUT ×2 (13:26→18:06)
--- NOTE | 2024-05-26 14:42 | PC.NURSE ---
called pharmacy zohaib Mathis at 1345- has yet to arrive to dept
--- NOTE | 2024-05-26 15:25 | PC.NURSE ---
re:Sevelamir- med not delivered by pharmacy until 151
[2024-05-26] MEDS: Calcium Oyster Shell Elemental 500 MG TABLET PO ×2 (15:33→21:24)
[2024-05-26 17:44] LABS: Glucose, Whole Blood 155 mg/dL (60-115)
--- NOTE | 2024-05-26 18:23 | PC.NURSE ---
pt medicated per MAR- pt pm POC 155- 2units lispro given- pt resting in bed at this time
[2024-05-26 20:11] LABS: Glucose, Whole Blood 96 mg/dL (60-115)
[2024-05-26] MEDS: Insulin Glargine,Hum.rec.anlog 100 UNIT/ML 10 ML VIAL 22 UNIT SUBCUT (21:21)
[2024-05-26] MEDS: Doxazosin Mesylate 2 MG TABLET 4 MG PO (21:23)
--- NOTE | 2024-05-26 22:11 | PC.NURSE ---
pt medicated with PM meds, no HS ss insulin given as POC 98. 22U lantus given. pt resting quietly on exam room stretcher, offers no complaints at this time. Pt awaiting med surg bed assignment. call montilla within reach
[2024-05-27] VITALS (11 sets, daily range): BP systolic 115–209; BP diastolic 60–85; PULSE 69–114; RESP 16–20; TEMP 36.6–36.8; O2SAT 87–97
[2024-05-27] MEDS: Melatonin 3 MG TABLET 6 MG PO (01:29)
[2024-05-27] MEDS: oxyCODONE HCl Immed Release 5 MG TABLET PO (01:29)
[2024-05-27] MEDS: Piperacillin Sodium/Tazobactam 2.25 GM in 0.9 % Sodium Chloride 50 ML IV ×3 (01:39→18:09)
[2024-05-27] MEDS: 0.9 % Sodium Chloride Flush 3 ML SYRINGE IVFLUSH ×2 (01:39→10:22)
[2024-05-27] MEDS: Morphine Sulfate 4 MG/ML CARTRIDGE IVPUSH (03:15)
[2024-05-27] MEDS: Nitroglycerin 2 % Oint 1 GM Packet 1 INCH TRANSDERMA (03:15)
[2024-05-27] MEDS: Heparin Sodium,Porcine 5,000 UNIT/ML VIAL 5000 UNIT SUBCUT (07:06)
[2024-05-27] MEDS: Omeprazole 20 MG CAPSULE.DR PO (07:06)
[2024-05-27 07:21] LABS: Glucose, Whole Blood 89 mg/dL (60-115)
[2024-05-27] MEDS: Fluticasone/Umeclidinium/Vilanterol 100/62.5/25 BLST.W.DEV 1 PUFF INHALE (08:02)
[2024-05-27 09:24] LABS: Creatinine Clr Calc Pharmacy 6.5; Estimated Glomerular Filt Rate 6
[2024-05-27 10:20] LABS: Glucose, Whole Blood 122 mg/dL (60-115)
[2024-05-27] MEDS: Calcium Oyster Shell Elemental 500 MG TABLET PO ×2 (10:20→18:06)
[2024-05-27] MEDS: levETIRAcetam 1,000 MG TABLET 1000 MG PO (10:20)
--- NOTE | 2024-05-27 10:20 | PC.NURSE ---
pt was found slightly drowsy but easily arousable, skin appears to be ashen looking, pt was found to be hypoxic at 87% on room air but according to the pt he wears oxygen at baseline on 2L and the oxygen improved quickly to 95%, this rn removed the nitro paste from the left sided of the chest because bp slightly on the lower sided and pt was getting bp meds this morning on top of it, pt is a dialysis pt he has a dialysis port on the right sided of the chest, his dialysis days are M, W, , pt has an amputation to the right lower extremities, pt also has his right third finger tip narcotic, pt reports 10/10 pain to the stump leg
[2024-05-27] MEDS: Sevelamer Carbonate Tablet 800 MG TABLET 1600 MG PO ×2 (10:21→18:06)
[2024-05-27] MEDS: Pregabalin 75 MG CAPSULE PO (10:21)
[2024-05-27] MEDS: amLODIPine Besylate 10 MG TABLET PO (10:21)
[2024-05-27] MEDS: Docusate Sodium 100 MG CAPSULE PO (10:21)
[2024-05-27] MEDS: carvediloL 12.5 MG TABLET PO (10:21)
--- NOTE | 2024-05-27 10:29 | P.CONNP_ITS ---
History of Present Illness Reason for Consult Consult date: 05/27/24 Reason for consult: End stage renal disease Chief Complaint Chief complaint: Cellulitis History of Present Illness Narrative: 69M PMH recent prolonged admission to [facility] [place] [facility] 05/01/24-05/16/24 (for hemopericardium, hydralazine vasculitis, right bka infection requiring aka, new diagnosis of seizure disorder), ESRD, dm, pnd, hfref, htn, hld, chronic hypoxic respiratory failure on 2L home o2 ROBERT on cpap presented with erythem of stump site. patient was at SNF, doing well, son came to visit and noticed new erythema around right AKA stump site. denies drainage, fever, chills, sob, increased pain. in ED CT with diffuse fluid, no drainable collection, concern for possible mysositis. no SIRS criteria, inflammatory markers decreasing. ON LICENSE OF [facility] Past Medical History Medical History Above knee amputation of right lower extremity Left ventricular systolic dysfunction (LVSD) PVD (peripheral vascular disease) Postop check Acute pericardial effusion ESRD needing dialysis Right sided weakness Dehiscence of wound Peripheral arterial disease Cellulitis of right foot Hypertension Dry gangrene HFrEF (heart failure with reduced ejection fraction) ESRD (end stage renal disease) Chronic combined systolic and diastolic CHF (congestive heart failure) Chronic pericardial effusion Arthritis Asthma Restless leg syndrome Acute on chronic systolic and diastolic heart failure, NYHA class 3 Anemia ESRD (end stage renal disease) Occlusive thrombus Pulmonary edema ROBERT (obstructive sleep apnea) Type 2 diabetes mellitus Hyperlipidemia Hypertension A-V fistula ESRD on dialysis Falling Family History Family History Father No problems noted. Mother No problems noted. Surgical History Surgical History Status post creation of pericardial window Postop check Hx of right BKA Status post transmetatarsal amputation of right foot History of transmetatarsal amputation of foot History of surgery H/O colonoscopy Recurrent pleural effusion Pleural effusion on right (07/13/23) Social History Social History Household Members: Children Household Members Other:: son Housing: Apartment Are you a primary child care education coordinator to a significant other at home: No Do you presently have visiting nurse or other home services: No Alcohol intake: former Comment: n Patient Tobacco Use Status: Former Tobacco user Tobacco use type: Cigarette Smoked in Last 30 Days: No Second Hand Smoke Exposure: No Use of substances other than those prescribed or required for medical reasons: No Advance Directives: Yes Advance Directives on File: Yes Advance Directives Date on File: 10/04/23 Nutrition Risks: No Nutritional Risk service: No Meds Allergies Allergy/AdvReac Type Severity Reaction Status Date / Time Iodinated Contrast Media Allergy Severe Facial Verified 05/25/24 19:02 [Contrast Dye] Swelling hydralazine AdvReac Severe vasculitis Verified 05/25/24 21:24 Active Medications: Current Medications Acetaminophen (Acetaminophen 325 Mg Tablet) 650 mg PO Q6H PRN PRN Reason: Pain, Mild 1-3,fever,headache Albuterol/Ipratropium (Albuterol/Iprat 2.5/0.5mg 3 Ml Ampul.Neb) 3 ml INHALE RQ4H WHILE AWAKE PRN PRN Reason: sob Allopurinol (Allopurinol 100 Mg Tablet) 100 mg PO MOWEFR@1600 [facility] Amlodipine Besylate (Amlodipine Besylate 10 Mg Tablet) 10 mg PO DAILY [facility]; Protocol Last Admin: 05/27/24 10:21 Dose: 10 mg Aspirin (Aspirin Enteric Coated 81 Mg Tablet.) 81 mg PO MOWEFR@1600 [facility] Last Admin: 05/26/24 09:36 Dose: 81 mg Aspirin (Aspirin Enteric Coated 81 Mg Tablet.) 81 mg PO SUTUTHSA@09 [facility] Last Admin: 05/26/24 09:47 Dose: 81 mg Atorvastatin Calcium (Atorvastatin Calcium 40 Mg Tablet) 40 mg PO MOWEFR@1600 [facility] Atorvastatin Calcium (Atorvastatin Calcium 40 Mg Tablet) 40 mg PO SUTUTHSA@0900 [facility] Last Admin: 05/26/24 09:37 Dose: 40 mg Calcium Carbonate (Calcium Carbonate 750 Mg Tab.Chew) 750 mg PO Q4H PRN PRN Reason: Heartburn Calcium Carbonate (Calcium Oyster Shell Elemental 500 Mg Tablet) 500 mg PO TID [facility] Last Admin: 05/27/24 10:20 Dose: 500 mg Carvedilol (Carvedilol 12.5 Mg Tablet) 12.5 mg PO BID [facility]; Protocol Last Admin: 05/27/24 10:21 Dose: 12.5 mg Dextrose (Dextrose 50 % 25 Gm/50 Ml Syringe) 25 gm IVPUSH Q15M PRN; Protocol PRN Reason: per Hypoglycemia Standing Ord. Docusate Sodium (Docusate Sodium 100 Mg Capsule) 100 mg PO DAILY [facility] Last Admin: 05/27/24 10:21 Dose: 100 mg Doxazosin Mesylate (Doxazosin Mesylate 2 Mg Tablet) 4 mg PO BEDTIME [facility]; Protocol Last Admin: 05/26/24 21:23 Dose: 4 mg Fluticasone/Umeclidinium/Vilanterol (Fluticasone/Umeclidinium/Vilanterol 100/62.5/25 Blst.W.Dev) 1 puff INHALE DAILY [facility] Last Admin: 05/27/24 08:02 Dose: 1 puff Furosemide (Furosemide 40 Mg Tablet) 80 mg PO MOWEFR@1600 [facility]; Protocol Furosemide (Furosemide 40 Mg Tablet) 80 mg PO SUTUTHSA@0900 [facility]; Protocol Last Admin: 05/26/24 09:37 Dose: 80 mg Glucose (Glucose Gel 15 Gm Gel..Gram.) 15 gm PO Q15M PRN; Protocol PRN Reason: per Hypoglycemia Standing Ord. Heparin Sodium (Porcine) (Heparin Sodium,Porcine 5,000 Unit/Ml Vial) 5,000 unit SUBCUT Q8H [facility] Last Admin: 05/27/24 07:06 Dose: 5,000 unit Vancomycin HCl 1,000 mg/ (Sodium Chloride) 270 mls @ 270 mls/hr IV DAILY [facility] Piperacillin Sod/Tazobactam (Sod 2.25 gm/ Sodium Chloride) 50 mls @ 100 mls/hr IV Q8H [facility] Last Infusion: 05/27/24 03:00 Dose: Infused Insulin Glargine (Insulin Glargine,Hum.Rec.Anlog 100 Unit/Ml 10 Ml Vial) 22 unit SUBCUT BEDTIME [facility] Last Admin: 05/26/24 21:21 Dose: 22 unit Insulin Human Lispro (Insulin Lispro 100 Unit/Ml 3 Ml Vial) 0 unit SUBCUT QIDACHS [facility]; Protocol Last Admin: 05/27/24 07:40 Dose: Not Given Levetiracetam (Levetiracetam 1,000 Mg Tablet) 1,000 mg PO BID [facility] Last Admin: 05/27/24 10:20 Dose: 1,000 mg Losartan Potassium (Losartan Potassium 25 Mg Tablet) 25 mg PO MOWEFR@1600 [facility]; Protocol Last Admin: 05/26/24 09:36 Dose: 25 mg Losartan Potassium (Losartan Potassium 25 Mg Tablet) 25 mg PO SUTUTHSA@0900 [facility]; Protocol Last Admin: 05/26/24 09:45 Dose: 25 mg Magnesium Hydroxide (Milk Of Magnesia 30 Ml Oral.Susp) 30 ml PO DAILY PRN PRN Reason: Constipation Melatonin (Melatonin 3 Mg Tablet) 6 mg PO BEDTIME PRN PRN Reason: Insomnia Last Admin: 05/27/24 01:29 Dose: 6 mg Omeprazole (Omeprazole 20 Mg Capsule.Dr) 20 mg PO DAILY@0630 [facility] Last Admin: 05/27/24 07:06 Dose: 20 mg Oxycodone HCl (Oxycodone Hcl Immed Release 5 Mg Tablet) 5 mg PO Q6H PRN PRN Reason: Pain, Severe (Pain Scale 7-10) Last Admin: 05/27/24 01:29 Dose: 5 mg Pharmacy Consult (Consult Rx Vancomycin Dosing) 1 each MISCELLANE DAILY PRN PRN Reason: Consult order Pregabalin (Pregabalin 75 Mg Capsule) 75 mg PO TID [facility] Last Admin: 05/27/24 10:21 Dose: 75 mg Sevelamer Carbonate (Sevelamer Carbonate Tablet 800 Mg Tablet) 1,600 mg PO TIDM [facility] Last Admin: 05/27/24 10:21 Dose: 1,600 mg Sodium Chloride (0.9 % Sodium Chloride Flush 3 Ml Syringe) [facility] Last Admin: 05/27/24 10:22 Dose: 3 ml Tramadol HCl (Tramadol Hcl 50 Mg Tablet) 25 mg PO Q6H PRN PRN Reason: Severe Pain (Scale Score 7-10) Home Medications ?Medication ?Instructions ?Recorded ?Confirmed ?Last Taken ?Type allopurinol 100 mg tablet 100 mg PO MOWEFR@1600 04/19/22 05/26/24 03/18/24 History atorvastatin 40 mg tablet 40 mg PO SUTUTHSA@0900 04/19/22 05/26/24 03/19/24 History doxazosin 4 mg tablet 4 mg PO BEDTIME 04/19/22 05/26/24 03/18/24 History furosemide 80 mg tablet 80 mg PO SUTUTHSA@0900 04/19/22 05/26/24 03/19/24 History omeprazole 20 mg capsule,delayed 20 mg PO DAILY@0630 04/19/22 05/26/24 03/19/24 History release insulin lispro 100 unit/mL See Rx Instructions .Route .COMPLEX 04/10/23 05/26/24 03/18/24 History subcutaneous pen aspirin 81 mg tablet,delayed 81 mg PO SUTUTHSA@0900 06/20/23 05/26/24 03/19/24 History release pregabalin 75 mg capsule 75 mg PO TID 06/20/23 05/26/24 03/19/24 History sucroferric oxyhydroxide 500 mg 500 mg PO TIDWM 01/24/24 05/26/24 03/19/24 History chewable tablet (Velphoro) aspirin 81 mg tablet,delayed 81 mg PO MOWEFR@1600 04/05/24 05/26/24 Unknown History release atorvastatin 40 mg tablet 40 mg PO MOWEFR@1600 04/05/24 05/26/24 Unknown History fluticasone fur. 100 mcg-umeclid 1 inh inhalation DAILY 04/05/24 05/26/24 Unknown History 62.5 mcg-vilant 25 mcg inhalat.powder (Trelegy Ellipta) furosemide 80 mg tablet 80 mg PO MOWEFR@1600 04/05/24 05/26/24 Unknown History losartan 25 mg tablet 25 mg PO MOWEFR@1600 04/05/24 05/26/24 Unknown History losartan 25 mg tablet 25 mg PO SUTUTHSA@0900 04/05/24 05/26/24 Unknown History insulin glargine 100 unit/mL (3 22 unit subcut BEDTIME 05/01/24 05/26/24 Unknown History mL) subcutaneous pen (Lantus Solostar U-100 Insulin) acetaminophen 500 mg tablet 1,000 mg PO Q8H PRN Pain 05/26/24 05/26/24 Unknown History amlodipine 10 mg tablet 10 mg PO DAILY 05/26/24 05/26/24 Unknown History calcium carbonate (Calcium 500) 500 mg PO TID 05/26/24 05/26/24 Unknown History carvedilol 12.5 mg tablet 12.5 mg PO BID 05/26/24 05/26/24 Unknown History docusate sodium 100 mg capsule 100 mg PO DAILY 05/26/24 05/26/24 Unknown History doxycycline monohydrate 100 mg 100 mg PO BID 05/26/24 05/26/24 Unknown History capsule insulin lispro 100 unit/mL See Rx Instructions .Route .COMPLEX 05/26/24 05/26/24 Unknown History subcutaneous solution (Humalog U-100 Insulin) levetiracetam 1,000 mg tablet 1,000 mg PO BID 05/26/24 05/26/24 Unknown History (Keppra) tramadol 25 mg tablet 25 mg PO Q6H PRN Severe Pain 05/26/24 05/26/24 Unknown History (Scale Score 7-10) Physical Exam Vital Signs: Last Vital Signs Temp 97.8 F 05/27/24 10:16 Pulse 69 05/27/24 10:16 Resp 18 05/27/24 10:16 BP 115/69 05/27/24 10:16 Pulse Ox 87 L 05/27/24 10:16 O2 Del Method Room Air 05/27/24 10:16 O2 Flow Rate 2 05/26/24 05:40 BMI result Body Mass Index 24.3 Awake. Comfortable. Neck is supple. Mucosa moist. Lungs bilateral scattered rhonchi. Heart S1-S2 heard no gallop. Abdomen soft. Extremities no edema. No involuntary movements. No myoclonus. Results Lab Results 05/26/24 05:37 05/27/24 08:50 Lab results: Chemistry 05/25/24 05/26/24 05/27/24 19:23 05:37 08:50 Sodium 139 141 Potassium 4.4 4.3 Carbon Dioxide 24 23 BUN 57 H 66 H Creatinine 6.45 H* 7.14 H* 8.97 H* Calcium 8.9 8.9 Hematology 05/25/24 05/26/24 19:23 05:37 WBC 9.7 9.4 Hgb 8.9 L 8.4 L Plt Count 328 [id number] Assessment and Plan (1) ESRD needing dialysis: Status: Inactive Plan 69 man with the end stage renal disease and pericardial effusion. Usually he is dialysis Monday at [facility] [place]. I will arrange for dialysis HD via [facility] fluid removal. Concur with other medical management Procedures Date of Service Date of Service: 05/27/24
--- NOTE | 2024-05-27 11:39 | PC.NURSE ---
Report recieved from DONTRELL Morales. Taken over care at this time.
--- NOTE | 2024-05-27 11:42 | P.PNIM_ITS ---
Subjective Subjective Date of Service: 05/27/24 Interval History: f/u on probable cellulitis of AKA stump no fever, no pain Physical Exam 2 Vital Signs: Vital Signs: Last Vital Signs Temp 97.8 F 05/27/24 10:16 Pulse 69 05/27/24 10:16 Resp 18 05/27/24 10:16 BP 115/69 05/27/24 10:16 Pulse Ox 87 L 05/27/24 10:16 O2 Del Method Room Air 05/27/24 10:16 O2 Flow Rate 2 05/26/24 05:40 BMI result Body Mass Index 24.3 Objective Data Active Medications Acetaminophen (Acetaminophen 325 Mg Tablet) 650 mg PO Q6H PRN PRN Reason: Pain, Mild 1-3,fever,headache Albuterol/Ipratropium (Albuterol/Iprat 2.5/0.5mg 3 Ml Ampul.Neb) 3 ml INHALE RQ4H WHILE AWAKE PRN PRN Reason: sob Allopurinol (Allopurinol 100 Mg Tablet) 100 mg PO MOWEFR@1600 [facility] Amlodipine Besylate (Amlodipine Besylate 10 Mg Tablet) 10 mg PO DAILY [facility]; Protocol Last Admin: 05/27/24 10:21 Dose: 10 mg Documented By: SURAJ Aspirin (Aspirin Enteric Coated 81 Mg Tablet.) 81 mg PO MOWEFR@1600 [facility] Last Admin: 05/26/24 09:36 Dose: 81 mg Documented By: RYAN Aspirin (Aspirin Enteric Coated 81 Mg Tablet.) 81 mg PO SUTUTHSA@09 [facility] Last Admin: 05/26/24 09:47 Dose: 81 mg Documented By: RYAN Atorvastatin Calcium (Atorvastatin Calcium 40 Mg Tablet) 40 mg PO MOWEFR@1600 [facility] Atorvastatin Calcium (Atorvastatin Calcium 40 Mg Tablet) 40 mg PO SUTUTHSA@0900 [facility] Last Admin: 05/26/24 09:37 Dose: 40 mg Documented By: RYAN Calcium Carbonate (Calcium Carbonate 750 Mg Tab.Chew) 750 mg PO Q4H PRN PRN Reason: Heartburn Calcium Carbonate (Calcium Oyster Shell Elemental 500 Mg Tablet) 500 mg PO TID [facility] Last Admin: 05/27/24 10:20 Dose: 500 mg Documented By: SURAJ Carvedilol (Carvedilol 12.5 Mg Tablet) 12.5 mg PO BID [facility]; Protocol Last Admin: 05/27/24 10:21 Dose: 12.5 mg Documented By: SURAJ Dextrose (Dextrose 50 % 25 Gm/50 Ml Syringe) 25 gm IVPUSH Q15M PRN; Protocol PRN Reason: per Hypoglycemia Standing Ord. Docusate Sodium (Docusate Sodium 100 Mg Capsule) 100 mg PO DAILY [facility] Last Admin: 05/27/24 10:21 Dose: 100 mg Documented By: SURAJ Doxazosin Mesylate (Doxazosin Mesylate 2 Mg Tablet) 4 mg PO BEDTIME [facility]; Protocol Last Admin: 05/26/24 21:23 Dose: 4 mg Documented By: MAURICE Fluticasone/Umeclidinium/Vilanterol (Fluticasone/Umeclidinium/Vilanterol 100/62.5/ Blst.W.Dev) 1 puff INHALE DAILY [facility] Last Admin: 05/27/24 08:02 Dose: 1 puff Documented By: EMELIA Furosemide (Furosemide 40 Mg Tablet) 80 mg PO MOWEFR@1600 [facility]; Protocol Furosemide (Furosemide 40 Mg Tablet) 80 mg PO SUTUTHSA@0900 [facility]; Protocol Last Admin: 05/26/24 09:37 Dose: 80 mg Documented By: RYAN Glucose (Glucose Gel 15 Gm Gel..Gram.) 15 gm PO Q15M PRN; Protocol PRN Reason: per Hypoglycemia Standing Ord. Heparin Sodium (Porcine) (Heparin Sodium,Porcine 5,000 Unit/Ml Vial) 5,000 unit SUBCUT Q8H [facility] Last Admin: 05/27/24 07:06 Dose: 5,000 unit Documented By: JOSE JUAN Vancomycin HCl 1,000 mg/ (Sodium Chloride) 270 mls @ 270 mls/hr IV DAILY [facility] Piperacillin Sod/Tazobactam (Sod 2.25 gm/ Sodium Chloride) 50 mls @ 100 mls/hr IV Q8H [facility] Last Admin: 05/27/24 10:26 Dose: 100 mls/hr Documented By: SURAJ Insulin Glargine (Insulin Glargine,Hum.Rec.Anlog 100 Unit/Ml 10 Ml Vial) 22 unit SUBCUT BEDTIME [facility] Last Admin: 05/26/24 21:21 Dose: 22 unit Documented By: MAURICE Insulin Human Lispro (Insulin Lispro 100 Unit/Ml 3 Ml Vial) 0 unit SUBCUT QIDACHS [facility]; Protocol Last Admin: 05/27/24 07:40 Dose: Not Given Documented By: ALPHONSO Non-Admin Reason: No Insulin Coverage Levetiracetam (Levetiracetam 1,000 Mg Tablet) 1,000 mg PO BID [facility] Last Admin: 05/27/24 10:20 Dose: 1,000 mg Documented By: SURAJ Losartan Potassium (Losartan Potassium 25 Mg Tablet) 25 mg PO MOWEFR@1600 [facility]; Protocol Last Admin: 05/26/24 09:36 Dose: 25 mg Documented By: RYAN Losartan Potassium (Losartan Potassium 25 Mg Tablet) 25 mg PO SUTUTHSA@0900 [facility]; Protocol Last Admin: 05/26/24 09:45 Dose: 25 mg Documented By: RYAN Magnesium Hydroxide (Milk Of Magnesia 30 Ml Oral.Susp) 30 ml PO DAILY PRN PRN Reason: Constipation Melatonin (Melatonin 3 Mg Tablet) 6 mg PO BEDTIME PRN PRN Reason: Insomnia Last Admin: 05/27/24 01:29 Dose: 6 mg Documented By: JOSE JUAN Omeprazole (Omeprazole 20 Mg Capsule.) 20 mg PO DAILY@0630 [facility] Last Admin: 05/27/24 07:06 Dose: 20 mg Documented By: JOSE JUAN Oxycodone HCl (Oxycodone Hcl Immed Release 5 Mg Tablet) 5 mg PO Q6H PRN PRN Reason: Pain, Severe (Pain Scale 7-10) Last Admin: 05/27/24 01:29 Dose: 5 mg Documented By: JOSE JUAN Pharmacy Consult (Consult Rx Vancomycin Dosing) 1 each MISCELLANE DAILY PRN PRN Reason: Consult order Pregabalin (Pregabalin 75 Mg Capsule) 75 mg PO TID [facility] Last Admin: 05/27/24 10:21 Dose: 75 mg Documented By: SURAJ Sevelamer Carbonate (Sevelamer Carbonate Tablet 800 Mg Tablet) [facility] Last Admin: 05/27/24 10:21 Dose: 1,600 mg Documented By: SURAJ Sodium Chloride (0.9 % Sodium Chloride Flush 3 Ml Syringe) 3 ml IVFLUSH [facility] Last Admin: 05/27/24 10:22 Dose: 3 ml Documented By: SURAJ Tramadol HCl (Tramadol Hcl 50 Mg Tablet) 25 mg PO Q6H PRN PRN Reason: Severe Pain (Scale Score 7-10) Labs 05/26/24 05:37 05/27/24 08:50 Labs: Laboratory Results - last 24 hr 05/26/24 05/26/24 05/26/24 13:22 17:41 20:06 Estim Creat Clear Calc Estimated GFR POC Glucose 211 H 155 H 96 05/27/24 05/27/24 05/27/24 07:17 08:50 10:17 Estim Creat Clear Calc 6.5 Estimated GFR 6 POC Glucose 89 122 H Microbiology Microbiology Results: Microbiology 05/25/24 19:23 Blood Culture - Preliminary Blood - Venous No growth after 24 hours. 05/25/24 19:23 Blood Culture - Preliminary Blood - Venous No growth after 24 hours. Assessment and Plan (1) Cellulitis: Status: Acute (2) Hypertension: Status: Chronic Plan 69M PMH recent prolonged admission to [facility] [place]/01[place]24-05/16/24 (for hemopericardium, hydralazine vasculitis, right bka infection requiring aka, new diagnosis of seizure disorder), ESRD, dm, pvd, hfref, htn, hld, chronic hypoxic respiratory failure on 2L home o2 ROBERT on cpap presented with erythem of stump site Cellulitis of right above-knee amputation site History of MRSA and Enterococcus faecalis Continue vancomycin for gram positive, zosyn for gram negative coverage vascular consult Seizure disorder [facility] End-stage renal disease Continue phosphate binders, nephro eval, hemodialysis Diabetes Insulin sliding scale resume lantus at bedtime Peripheral vascular disease Aspirin, statin CHF with reduced ejection fraction Carvedilol, losartan, lasix Hypertension Losartan, carvedilol, amlodipine Chronic hypoxic respiratory failure Stable ROBERT CPAP at night DVT prophylaxis with heparin subQ Full code Given patient's cellulitis at site of previous amputation failure and history of multidrug resistant organisms expected require at least 2 midnights inpatient Quality Stroke Does the patient have a stroke diagnosis?: No VTE Prior VTE?: No VTE Risk Level:: Medical - moderate - high VTE Device Contraindication: Treatment Not Indicated VTE Drug Contraindication: N/A - Med Ordered
[2024-05-27 12:39] LABS: Glucose, Whole Blood 139 mg/dL (60-115)
--- NOTE | 2024-05-27 13:30 | P.DS_ITS ---
DS: Providers Provider Date of Service: 05/28/24 Date of admission: 05/25/24 22:19 Date of discharge: 05/28/24 Primary care physician: Shayla Augustine NP Consults: 05/25/24 22:18 Consult to General Surgery Routine Consulting Provider: [facility] [place] [facility] Reason for consultation: ?infected aka stump, dr grajeda did aka 05/09/24 Consult to Nephrology Routine Consulting Provider: [facility] [place] [facility] Reason for consultation: esrd 05/27/24 11:44 Consult to Vascular Surgery Routine Consulting Provider: [facility] [place] [facility] Reason for consultation: Cellultis of stump DS: Diagnosis Discharge Diagnosis (1) Cellulitis: Status: Acute (2) Hypertension: Status: Chronic DS: Summary Hospital Course Hospital Course: Chief Complaint: right aka stump erythema 69M PMH recent prolonged admission to [facility] [place] 05/01/24-05/16/24 (for hemopericardium, hydralazine vasculitis, right bka infection requiring aka, new diagnosis of seizure disorder), ESRD, dm, pnd, hfref, htn, hld, chronic hypoxic respiratory failure on 2L home o2 ROBERT on cpap presented with erythem of stump site. patient was at SNF, doing well, son came to visit and noticed new erythema around right AKA stump site. denies drainage, fever, chills, sob, increased pain. in ED CT with diffuse fluid, no drainable collection, concern for possible mysositis. no SIRS criteria, inflammatory markers decreasing. Hospital course: Patient was admitted for mild cellulitis around the recent righ AKA stump His says he has been apply toothpaste to the area, thinking it was a cream. He was given Vancomcyin and Zosyn in the hospital, there is minimal erthema and what looks a like a bruse in the area, francisco are still in place, vascular surgery recommends, outpatient antibiotics for 10 days and so will transitioned to oral dodycyline Time Attestation Discharge Coordination Time (in mins): 40 Quality: Safe Use of Opioids Does Pt have an Active Cancer Diagnosis on the Problem List?: No Quality: Stroke Does the patient have a stroke diagnosis?: No Physical Exam Vital Signs: Vital Signs: Last Vital Signs Temp 97.8 F 05/27/24 10:16 Pulse 70 05/27/24 12:48 Resp 16 05/27/24 12:48 BP 151/83 H 05/27/24 12:48 Pulse Ox 97 05/27/24 12:48 O2 Del Method Nasal Cannula 05/27/24 12:48 O2 Flow Rate 2 05/27/24 12:48 BMI result Body Mass Index 24.3 DS: Data Data Completed and Pending Labs on day of discharge: Laboratory Results - last 24 hr 05/26/24 05/26/24 05/27/24 17:41 20:06 07:17 Creatinine Estim Creat Clear Calc Estimated GFR POC Glucose 155 H 96 89 05/27/24 05/27/24 05/27/24 08:50 10:17 12:32 Creatinine 8.97 H* Estim Creat Clear Calc 6.5 Estimated GFR 6 POC Glucose 122 H 139 H Preliminary micro results at discharge 05/25/24 19:23 Blood Culture - Preliminary Blood - Venous No growth after 24 hours. 05/25/24 19:23 Blood Culture - Preliminary Blood - Venous No growth after 24 hours. Discharge Plan Discharge Anticipated Discharge Date/Time: 05/27/24 13:12 Patient Disposition: Home Health Service Discharge Diagnosis: Cellulitis of the right AKA stump Referrals: Shayla Augustine, ERIK [Primary Care Provider] - 1 Week Discharge Medications: New doxycycline monohydrate 100 mg capsule 100 mg PO DAILY 10 Days Qty: 10 0RF Continued (DME) PleurX catheter drainage kits 1000cc kits See Rx Instructions .Route .MEDSUPPLY Qty: 10 6RF Rx Instructions: As directed atorvastatin 40 mg tablet 40 mg PO SUTUTHSA@0900 allopurinol 100 mg tablet 100 mg PO MOWEFR@1600 Rx Instructions: GIVE AFTER DIALYSIS furosemide 80 mg tablet 80 mg PO SUTUTHSA@0900 omeprazole 20 mg capsule,delayed release(DR/EC) 20 mg PO DAILY@0630 doxazosin 4 mg tablet 4 mg PO BEDTIME Velphoro 500 mg tablet,chewable 500 mg PO TIDWM insulin lispro 100 unit/mL insulin pen See Rx Instructions .ROUTE .COMPLEX Rx Instructions: 1 sliding scale dose subcutaneously TIDAC on SUTUTHSA;200-249 - 2 UNITS 250- 299 4 UNITS, 300-349 6 UNITS 350-439 8 UNITS 400+ CALL aspirin 81 mg tablet,delayed release (DR/EC) 81 mg PO SUTUTHSA@0900 pregabalin 75 mg capsule 75 mg PO TID atorvastatin 40 mg tablet 40 mg PO MOWEFR@1600 aspirin 81 mg Tablet,Delayed Release (Dr/Ec) 81 mg PO MOWEFR@1600 furosemide 80 mg tablet 80 mg PO MOWEFR@1600 losartan 25 mg tablet 25 mg PO MOWEFR@1600 Trelegy Ellipta 100-62.5-25 mcg Blister With Device 1 inh INHALATION DAILY losartan 25 mg tablet 25 mg PO SUTUTHSA@0900 Protocol: Hold for SBP< HOLD for SBP < : 90 insulin glargine [Lantus Solostar U-100 Insulin] 100 unit/mL (3 mL) insulin pen 22 unit subcut BEDTIME carvedilol 12.5 mg Tablet 12.5 mg PO BID Rx Instructions: must administer with a meal/food acetaminophen 500 mg Tablet 1,000 mg PO Q8H PRN (Reason: Pain) amlodipine 10 mg Tablet 10 mg PO DAILY doxycycline monohydrate 100 mg Capsule 100 mg PO BID Rx Instructions: END DATE: 05/27/24 docusate sodium 100 mg Capsule 100 mg PO DAILY calcium carbonate [Calcium 500] 500 mg calcium (1,250 mg) Tablet,Chewable 500 mg PO TID insulin lispro [Humalog U-100 Insulin] 100 unit/mL Solution See Rx Instructions .ROUTE .COMPLEX Rx Instructions: 1 sliding scale dose subcutaneously twice daily with meals on ; 200-249 - 2 UNITS 250-299 4 UNITS, 300-349 6 UNITS 350-439 8 UNITS 400+ CALL levetiracetam [Keppra] 1,000 mg Tablet 1,000 mg PO BID tramadol 25 mg Tablet 25 mg PO Q6H PRN (Reason: Severe Pain (Scale Score 7-10)) Rx Instructions: END DATE: 06/03/24 Discharge Orders: Discharge Order (Routine); Ordered 05/27/24 Ordered By: Hamlet Rai Diet: Diabetic diet Activity on Discharge: As tolerated Stand Alone Forms: Patient Portal Discharge page Print Language: Korean Care Plan Goals: recovery from cellulitis Health Concerns: cellulitis or the right AKA stump Plan of Treatment: take Doxycyline as recommended and follow up with vascular surgery Assessment: see above Discharge Date/Time: 05/28/24 07:34
--- NOTE | 2024-05-27 13:33 | P.CONGS_ITS ---
<Statement entered by Baltazar Cannon MD - 05/28/24 08:51> I have seen and evaluated the patient and agree with history, findings, assessment and plan documented by Amarilis Mcdaniels PA-c. In short patient was for stump follow-up. Have francisco were removed. There does appear to be some drainage in the midportion of it and there appears to be more ecchymosis then significant cellulitis. Patient can be started on p.o. antibiotics and can be followed up as an outpatient. Thank you for allowing us to assist in his care History of Present Illness Consult details Consult date: 05/27/24 Narrative: We were consulted today for Beau, a 69 yo mostly Macedonian speaking male patient, known to us and s/p right AKA on 05/09/24. He presented from the SNF for concerns of infection in the area of the right AKA site. He was discharged from here 10d prior and completed oral Doxy. He denies any fever and chills. There was no leukocytosis and sepsis was not suspected. He was admitted and a gen sx consult was ordered and there was no surgical intervention needed. We were consulted for the ongoing ecchymosis/? AKA infection. The pt denies any pain at the site. Review of Systems 2 Constitutional: Constitutional: Reports as per HPI and Denies weakness ENT: Reports Normal hearing present and Denies dizziness Cardiovascular: Cardiovascular: Reports as per HPI, Denies chest pain, Denies chest pain at rest, Denies chest pain with activity, Denies dyspnea and Denies dyspnea on exertion Respiratory: Respiratory: Reports as per HPI, Denies cough, Denies dyspnea and Denies dyspnea on exertion Gastrointestinal: Gastrointestinal: Reports as per HPI, Denies abdominal pain, Denies nausea and Denies vomiting Musculoskeletal: Musculoskeletal: Denies numbness Integumentary/Breasts: Skin/Breast: Reports as per HPI, Denies erythema and Denies wounds Neurologic: Reports Normal hearing present, Denies dizziness, Denies numbness, Denies Sensory deficit (Neuro) and Denies weakness Psychiatric: Psychiatric: Reports no additional psychiatric complaints Endocrine: Endocrine: Reports no additional endocrine complaints [facility] Past Medical History Medical History Above knee amputation of right lower extremity Left ventricular systolic dysfunction (LVSD) PVD (peripheral vascular disease) Postop check Acute pericardial effusion ESRD needing dialysis Right sided weakness Dehiscence of wound Peripheral arterial disease Cellulitis of right foot Hypertension Dry gangrene HFrEF (heart failure with reduced ejection fraction) ESRD (end stage renal disease) Chronic combined systolic and diastolic CHF (congestive heart failure) Chronic pericardial effusion Arthritis Asthma Restless leg syndrome Acute on chronic systolic and diastolic heart failure, NYHA class 3 Anemia ESRD (end stage renal disease) Occlusive thrombus Pulmonary edema ROBERT (obstructive sleep apnea) Type 2 diabetes mellitus Hyperlipidemia Hypertension A-V fistula ESRD on dialysis Falling Family History Family History Father No problems noted. Mother No problems noted. Surgical History Surgical History Status post creation of pericardial window Postop check Hx of right BKA Status post transmetatarsal amputation of right foot History of transmetatarsal amputation of foot History of surgery H/O colonoscopy Recurrent pleural effusion Pleural effusion on right (07/13/23) Social History Social History Household Members: Children Household Members Other:: son Housing: Apartment Are you a primary care center manager to a significant other at home: No Do you presently have visiting nurse or other home services: No Alcohol intake: former Comment: n Patient Tobacco Use Status: Former Tobacco user Tobacco use type: Cigarette Smoked in Last 30 Days: No Second Hand Smoke Exposure: No Use of substances other than those prescribed or required for medical reasons: No Advance Directives: Yes Advance Directives on File: Yes Advance Directives Date on File: 10/04/23 Nutrition Risks: No Nutritional Risk service: No Meds Allergies Allergy/AdvReac Type Severity Reaction Status Date / Time Iodinated Contrast Media Allergy Severe Facial Verified 05/25/24 19:02 [Contrast Dye] Swelling hydralazine AdvReac Severe vasculitis Verified 05/25/24 21:24 Active Medications: Current Medications Acetaminophen (Acetaminophen 325 Mg Tablet) 650 mg PO Q6H PRN PRN Reason: Pain, Mild 1-3,fever,headache Albuterol/Ipratropium (Albuterol/Iprat 2.5/0.5mg 3 Ml Ampul.Neb) 3 ml INHALE RQ4H WHILE AWAKE PRN PRN Reason: sob Allopurinol (Allopurinol 100 Mg Tablet) 100 mg PO MOWEFR@1600 NASREEN Amlodipine Besylate (Amlodipine Besylate 10 Mg Tablet) 10 mg PO DAILY [facility]; Protocol Last Admin: 05/27/24 10:21 Dose: 10 mg Aspirin (Aspirin Enteric Coated 81 Mg Tablet.) 81 mg PO MOWEFR@1600 [facility] Last Admin: 05/26/24 09:36 Dose: 81 mg Aspirin (Aspirin Enteric Coated 81 Mg Tablet.) 81 mg PO SUTUTHSA@09 [facility] Last Admin: 05/26/24 09:47 Dose: 81 mg Atorvastatin Calcium (Atorvastatin Calcium 40 Mg Tablet) 40 mg PO MOWEFR@1600 [facility] Atorvastatin Calcium (Atorvastatin Calcium 40 Mg Tablet) 40 mg PO SUTUTHSA@0900 [facility] Last Admin: 05/26/24 09:37 Dose: 40 mg Calcium Carbonate (Calcium Carbonate 750 Mg Tab.Chew) 750 mg PO Q4H PRN PRN Reason: Heartburn Calcium Carbonate (Calcium Oyster Shell Elemental 500 Mg Tablet) 500 mg PO TID [facility] Last Admin: 05/27/24 10:20 Dose: 500 mg Carvedilol (Carvedilol 12.5 Mg Tablet) 12.5 mg PO BID [facility]; Protocol Last Admin: 05/27/24 10:21 Dose: 12.5 mg Dextrose (Dextrose 50 % 25 Gm/50 Ml Syringe) 25 gm IVPUSH Q15M PRN; Protocol PRN Reason: per Hypoglycemia Standing Ord. Docusate Sodium (Docusate Sodium 100 Mg Capsule) 100 mg PO DAILY [facility] Last Admin: 05/27/24 10:21 Dose: 100 mg Doxazosin Mesylate (Doxazosin Mesylate 2 Mg Tablet) 4 mg PO BEDTIME [facility]; Protocol Last Admin: 05/26/24 21:23 Dose: 4 mg Fluticasone/Umeclidinium/Vilanterol (Fluticasone/Umeclidinium/Vilanterol 100/62.5/25 Blst.W.Dev) 1 puff INHALE DAILY [facility] Last Admin: 05/27/24 08:02 Dose: 1 puff Furosemide (Furosemide 40 Mg Tablet) 80 mg PO MOWEFR@1600 [facility]; Protocol Furosemide (Furosemide 40 Mg Tablet) 80 mg PO SUTUTHSA@0900 [facility]; Protocol Last Admin: 05/26/24 09:37 Dose: 80 mg Glucose (Glucose Gel 15 Gm Gel..Gram.) 15 gm PO Q15M PRN; Protocol PRN Reason: per Hypoglycemia Standing Ord. Heparin Sodium (Porcine) (Heparin Sodium,Porcine 5,000 Unit/Ml Vial) 5,000 unit SUBCUT Q8H [facility] Last Admin: 05/27/24 07:06 Dose: 5,000 unit Vancomycin HCl 1,000 mg/ (Sodium Chloride) 270 mls @ 270 mls/hr IV DAILY [facility] Piperacillin Sod/Tazobactam (Sod 2.25 gm/ Sodium Chloride) 50 mls @ 100 mls/hr IV Q8H [facility] Last Admin: 05/27/24 10:26 Dose: 100 mls/hr Insulin Glargine (Insulin Glargine,Hum.Rec.Anlog 100 Unit/Ml 10 Ml Vial) 22 unit SUBCUT BEDTIME [facility] Last Admin: 05/26/24 21:21 Dose: 22 unit Insulin Human Lispro (Insulin Lispro 100 Unit/Ml 3 Ml Vial) 0 unit SUBCUT QIDACHS [facility]; Protocol Last Admin: 05/27/24 07:40 Dose: Not Given Levetiracetam (Levetiracetam 1,000 Mg Tablet) 1,000 mg PO BID [facility] Last Admin: 05/27/24 10:20 Dose: 1,000 mg Losartan Potassium (Losartan Potassium 25 Mg Tablet) 25 mg PO MOWEFR@1600 [facility]; Protocol Last Admin: 05/26/24 09:36 Dose: 25 mg Losartan Potassium (Losartan Potassium 25 Mg Tablet) 25 mg PO SUTUTHSA@0900 [facility]; Protocol Last Admin: 05/26/24 09:45 Dose: 25 mg Magnesium Hydroxide (Milk Of Magnesia 30 Ml Oral.Susp) 30 ml PO DAILY PRN PRN Reason: Constipation Melatonin (Melatonin 3 Mg Tablet) 6 mg PO BEDTIME PRN PRN Reason: Insomnia Last Admin: 05/27/24 01:29 Dose: 6 mg Omeprazole (Omeprazole 20 Mg Capsule.Dr) 20 mg PO DAILY@0630 [facility] Last Admin: 05/27/24 07:06 Dose: 20 mg Oxycodone HCl (Oxycodone Hcl Immed Release 5 Mg Tablet) 5 mg PO Q6H PRN PRN Reason: Pain, Severe (Pain Scale 7-10) Last Admin: 05/27/24 01:29 Dose: 5 mg Pharmacy Consult (Consult Rx Vancomycin Dosing) 1 each MISCELLANE DAILY PRN PRN Reason: Consult order Pregabalin (Pregabalin 75 Mg Capsule) 75 mg PO TID [facility] Last Admin: 05/27/24 10:21 Dose: 75 mg Sevelamer Carbonate (Sevelamer Carbonate Tablet 800 Mg Tablet) 1,600 mg PO TIDWM [facility] Last Admin: 05/27/24 10:21 Dose: 1,600 mg Sodium Chloride (0.9 % Sodium Chloride Flush 3 Ml Syringe) 3 ml IVFLUSH QSHIFT [facility] Last Admin: 05/27/24 10:22 Dose: 3 ml Tramadol HCl (Tramadol Hcl 50 Mg Tablet) 25 mg PO Q6H PRN PRN Reason: Severe Pain (Scale Score 7-10) Home Medications ?Medication ?Instructions ?Recorded ?Confirmed ?Last Taken ?Type allopurinol 100 mg tablet 100 mg PO MOWEFR@1600 04/19/22 05/26/24 03/18/24 History atorvastatin 40 mg tablet 40 mg PO SUTUTHSA@0900 04/19/22 05/26/24 03/19/24 History doxazosin 4 mg tablet 4 mg PO BEDTIME 04/19/22 05/26/24 03/18/24 History furosemide 80 mg tablet 80 mg PO SUTUTHSA@0900 04/19/22 05/26/24 03/19/24 History omeprazole 20 mg capsule,delayed 20 mg PO DAILY@0630 04/19/22 05/26/24 03/19/24 History release insulin lispro 100 unit/mL See Rx Instructions .Route .COMPLEX 04/10/23 05/26/24 03/18/24 History subcutaneous pen aspirin 81 mg tablet,delayed 81 mg PO SUTUTHSA@0900 06/20/23 05/26/24 03/19/24 History release pregabalin 75 mg capsule 75 mg PO TID 06/20/23 05/26/24 03/19/24 History sucroferric oxyhydroxide 500 mg 500 mg PO TIDWM 01/24/24 05/26/24 03/19/24 History chewable tablet (Velphoro) aspirin 81 mg tablet,delayed 81 mg PO MOWEFR@1600 04/05/24 05/26/24 Unknown History release atorvastatin 40 mg tablet 40 mg PO MOWEFR@1600 04/05/24 05/26/24 Unknown History fluticasone fur. 100 mcg-umeclid 1 inh inhalation DAILY 04/05/24 05/26/24 Unknown History 62.5 mcg-vilant 25 mcg inhalat.powder (Trelegy Ellipta) furosemide 80 mg tablet 80 mg PO MOWEFR@1600 04/05/24 05/26/24 Unknown History losartan 25 mg tablet 25 mg PO MOWEFR@1600 04/05/24 05/26/24 Unknown History losartan 25 mg tablet 25 mg PO SUTUTHSA@0900 04/05/24 05/26/24 Unknown History insulin glargine 100 unit/mL (3 22 unit subcut BEDTIME 05/01/24 05/26/24 Unknown History mL) subcutaneous pen (Lantus Solostar U-100 Insulin) acetaminophen 500 mg tablet 1,000 mg PO Q8H PRN Pain 05/26/24 05/26/24 Unknown History amlodipine 10 mg tablet 10 mg PO DAILY 05/26/24 05/26/24 Unknown History calcium carbonate (Calcium 500) 500 mg PO TID 05/26/24 05/26/24 Unknown History carvedilol 12.5 mg tablet 12.5 mg PO BID 05/26/24 05/26/24 Unknown History docusate sodium 100 mg capsule 100 mg PO DAILY 05/26/24 05/26/24 Unknown History doxycycline monohydrate 100 mg 100 mg PO BID 05/26/24 05/26/24 Unknown History capsule insulin lispro 100 unit/mL See Rx Instructions .Route .COMPLEX 05/26/24 05/26/24 Unknown History subcutaneous solution (Humalog U-100 Insulin) levetiracetam 1,000 mg tablet 1,000 mg PO BID 05/26/24 05/26/24 Unknown History (Keppra) tramadol 25 mg tablet 25 mg PO Q6H PRN Severe Pain 05/26/24 05/26/24 Unknown History (Scale Score 7-10) Physical Exam 2 Vital Signs: Vital Signs: Last Vital Signs Temp 97.8 F 05/27/24 10:16 Pulse 70 05/27/24 12:48 Resp 16 05/27/24 12:48 BP 151/83 H 05/27/24 12:48 Pulse Ox 97 05/27/24 12:48 O2 Del Method Nasal Cannula 05/27/24 12:48 O2 Flow Rate 2 05/27/24 12:48 BMI result Body Mass Index 24.3 Const: General: comfortable and no acute distress O rientation/consciousness: patient oriented x3 HEENT: Ears: hearing grossly normal bilaterally Resp: Effort & Inspection: normal respiratory effort and able to speak in complete sentences Auscultation: clear to auscultation bilaterally Cardio: Rate: regular rate Rhythm: regular rhythm Heart sounds: S1 normal heart sound present and S2 normal heart sound present Bruits: no abdominal aortic bruits, no carotid bruits, no femoral bruits and no renal bruits GI: Palpation (GI): No Abdominal aortic bruit present Neuro: General: patient oriented x3 Cranial nerves: Yes Normal hearing present Sensory Exam: No Sensory deficit (Neuro) Extrem: Other: Right AKA site: small ecchymosis noted on the anterior aspect mid incision. No bogginess felt. No erythema or warmth felt throughout the incision site. We removed 1/2 the francisco without difficulty and kept the sutures in. There was a small amount of blood on the medial aspect after suture removal, stopped with slight pressure. There was also some slight serosanginous drainage noted between the medial aspect of the site and the mid-point. No odor noted. Results Labs 05/26/24 05:37 05/27/24 08:50 Labs: Abnormal lab results 05/26/24 05/27/24 05/27/24 Range/Units 17:41 08:50 10:17 Creatinine 8.97 H* (0.5-1.4) mg/dL POC Glucose 155 H 122 H (60-115) mg/dL 05/27/24 Range/Units 12:32 Creatinine (0.5-1.4) mg/dL POC Glucose 139 H (60-115) mg/dL BMP 05/27/24 08:50 Creatinine 8.97 H* All other labs normal. Assessment and Plan (1) AKA stump complication: Status: Acute Plan We were consulted for Beau for concerns of ? infection in the right AKA site. He presented to the ER on 05/25 with concerns of infection in the stump. He has been at rehab and has completed a course of oral Abx. He has not had a fever/chills/body aches and did not have any leukocytosis. We were able to remove 1/2 of the francicso and kept the sutures in place. There is no acute surgical intervention. There does not appear to be any signs of infection in the site/surrounding area. We recommend 10d of oral abx and follow up in our office in 1w after discharge. We will continue to monitor. If there are any questions or concerns, please do not hesitate to reach out to us. Procedures Date of Service Date of Service: 05/27/24
--- NOTE | 2024-05-27 17:12 | PC.NURSE ---
Pt. returned from dialysis, pt. refusing medication and states he just wants to sleep.
[2024-05-27 17:40] LABS: Glucose, Whole Blood 170 mg/dL (60-115)
--- NOTE | 2024-05-27 17:52 | PC.NURSE ---
Pt. spoke to Fidel via interreptor, pt. okay with receiving PO meds and not insulin at this time.
[2024-05-27] MEDS: Atorvastatin Calcium 40 MG TABLET PO (18:06)
[2024-05-27] MEDS: Losartan Potassium 25 MG TABLET PO (18:07)
[2024-05-27] MEDS: allopurinoL 100 MG TABLET PO (18:08)
[2024-05-27] MEDS: Furosemide 40 MG TABLET 80 MG PO (18:08)
== END 2024-05-28 07:34 | disposition home health service (06) | DRG 564 ==
LOC: HO.ED 21:05 → HO.EDOVER 22:28
PROVIDERS: Admitting Provider Internal Medicine; Emergency Provider Emergency Medicine; PCP Nurse Practitioner; Visit Provider Internal Medicine
DX: T87.43 Infection of amputation stump, right lower extremity (principal); N18.6 End stage renal disease; I13.2 Hypertensive heart and chronic kidney disease with heart failure and with stage 5 chronic kidney disease, or end stage renal disease; I50.22 Chronic systolic (congestive) heart failure; J96.11 Chronic respiratory failure with hypoxia; L03.115 Cellulitis of right lower limb; E11.51 Type 2 diabetes mellitus with diabetic peripheral angiopathy without gangrene; G47.33 Obstructive sleep apnea (adult) (pediatric); G40.909 Epilepsy, unspecified, not intractable, without status epilepticus; E11.22 Type 2 diabetes mellitus with diabetic chronic kidney disease; Z99.2 Dependence on renal dialysis; Z87.891 Personal history of nicotine dependence; Z86.14 Personal history of Methicillin resistant Staphylococcus aureus infection; Z79.4 Long term (current) use of insulin; Z79.82 Long term (current) use of aspirin; Z79.899 Other long term (current) drug therapy
CPT/HCPCS: 36415; 73700; 80048; 80076; 82565; 82947; 83605; 85025; 85027; 85652; 86140; 87040; 90999; 94640; 99285; J1644; J2270; J2543; J3371

== ENCOUNTER → 2024-05-25 19:02 | Outpatient (BNV) | payer MEDICARE, MEDICAID, SELFPAY | PROVIDERS: Emergency Provider Emergency Medicine; PCP Nurse Practitioner; Visit Provider Radiology Neuroradiology | DX: M25.451 Effusion, right hip (principal); M16.11 Unilateral primary osteoarthritis, right hip | CPT/HCPCS: 73700 ==

== ENCOUNTER → 2024-05-25 22:19 | Outpatient (BNV) | payer MEDICARE, MEDICAID, SELFPAY | PROVIDERS: Admitting Provider Internal Medicine; Emergency Provider Emergency Medicine; PCP Nurse Practitioner; Visit Provider Physician Assistant Surgical | DX: T87.9 Unspecified complications of amputation stump (principal) | CPT/HCPCS: 99024 ==

== ENCOUNTER → 2024-05-25 22:19 | Outpatient (BNV) | payer MEDICARE, MEDICAID, SELFPAY | PROVIDERS: Admitting Provider Internal Medicine; Emergency Provider Emergency Medicine; PCP Nurse Practitioner; Visit Provider Internal Medicine Hypertension Specialist | DX: N18.6 End stage renal disease (principal); Z99.2 Dependence on renal dialysis | CPT/HCPCS: 99223 ==

== ENCOUNTER → 2024-05-25 22:19 | Outpatient (BNV) | payer MEDICARE, MEDICAID, SELFPAY | PROVIDERS: Admitting Provider Internal Medicine; Emergency Provider Emergency Medicine; PCP Nurse Practitioner; Visit Provider Internal Medicine | DX: L03.90 Cellulitis, unspecified (principal); I10 Essential (primary) hypertension | CPT/HCPCS: 99232; 99239 ==

== ENCOUNTER → 2024-05-25 22:19 | Outpatient (BNV) | payer MEDICARE, MEDICAID, SELFPAY | PROVIDERS: Admitting Provider Internal Medicine; Emergency Provider Emergency Medicine; PCP Nurse Practitioner; Visit Provider Surgery | DX: T87.9 Unspecified complications of amputation stump (principal) | CPT/HCPCS: 99024 ==

== ENCOUNTER 2024-05-30 13:39 | Outpatient (AMB) | payer MEDICARE, MEDICAID, SELFPAY ==
--- NOTE | 2024-05-30 13:41 | MHC.OFFVIS ---
Intake Visit Reasons: 2 week follow up AKA Intake Note: Patient presents for follow up AKA. Patient states he is feeling ok . Patient is experiencing itching but believes it is due to his amp healing. Patient's dressing is changed daily. Accompanied by: Daughter Allergies Iodinated Contrast Media [Contrast Dye] Allergy (Severe, Verified 05/30/24 13:44) Facial Swelling hydralazine Adverse Reaction (Severe, Verified 05/30/24 13:44) vasculitis HPI HPI 2 week follow up AKA: Details: The patient is a 69-year-old male presenting with wound follow-up and suture/staple removal status above knee amputation. Initially post-surgery, the wound site exhibited regions that have healed adequately, though some areas show signs of skin. Over the course of recovery, he experiences mild to moderate itchiness, which is presumed to be part of the natural healing process. The sutures and francisco were in place for this visit for removal as part of the standard post-operative care. Postoperatively he did end up with a visit to the emergency room. There was concern about the overall erythema and drainage. He was started on p.o. antibiotics. In general he appears to be doing significantly better pain is well controlled in the wound seems to be healing. Of concern was that he was putting tooth paste on the incision line. [facility] Medical History Above knee amputation of right lower extremity Left ventricular systolic dysfunction (LVSD) PVD (peripheral vascular disease) Postop check Acute pericardial effusion ESRD needing dialysis Right sided weakness Dehiscence of wound Peripheral arterial disease Cellulitis of right foot Hypertension Dry gangrene HFrEF (heart failure with reduced ejection fraction) ESRD (end stage renal disease) Chronic combined systolic and diastolic CHF (congestive heart failure) Chronic pericardial effusion Arthritis Asthma Restless leg syndrome Acute on chronic systolic and diastolic heart failure, NYHA class 3 Anemia ESRD (end stage renal disease) Occlusive thrombus Pulmonary edema ROBERT (obstructive sleep apnea) Type 2 diabetes mellitus Hyperlipidemia Hypertension A-V fistula ESRD on dialysis Falling Surgical History Status post creation of pericardial window Postop check Hx of right BKA Status post transmetatarsal amputation of right foot History of transmetatarsal amputation of foot History of surgery H/O colonoscopy Recurrent pleural effusion Pleural effusion on right (07/13/23) Family History Father No problems noted. Mother No problems noted. Social History Household Members: Children Household Members Other:: son Housing: Apartment Are you a primary director career services to a significant other at home: No Do you presently have visiting nurse or other home services: No Alcohol intake: former Comment: n Patient Tobacco Use Status: Former Tobacco user Tobacco use type: Cigarette Second Hand Smoke Exposure: No Advance Directives Date on File: 10/04/23 service: No Review of Systems Const All systems reviewed & are unremarkable except as noted in HPI and below Reports no additional complaints ENT Reports Normal hearing present Card Denies chest pain, Denies chest pain at rest, Denies chest pain with activity and Denies pedal edema Resp Denies cough GI Denies abdominal pain Musc Denies abnormal gait, Denies muscle cramps and Denies radiating pain into limb Skin/Breast Denies skin ulcer and Denies wounds Neuro Reports Normal hearing present and Denies abnormal gait Psych Reports no additional complaints Physical Exam Const General: cooperative, healthy appearing and comfortable Orientation/consciousness: oriented to person, oriented to place and oriented to time HEENT Head: Yes normal to inspection Neck Neck: Yes normal visual inspection Carotids: no bruits Chest Chest palpation & inspection: normal inspection of the chest Resp Effort & Inspection: normal respiratory effort and able to speak in complete sentences Auscultation: clear to auscultation bilaterally, no crackles, no rales, no rhonchi and no wheezes Cardio Rate: regular rate Rhythm: regular rhythm Heart sounds: S1 normal heart sound present and S2 normal heart sound present Bruits: no carotid bruits Peripheral pulses: Peripheral pulses 2+ throughout GI Inspection: Yes normal to inspection Skin Wounds: no wounds Hair: normal Neuro General: oriented to person, oriented to place and oriented to time Cranial nerves: Yes CN's II-XII intact bilaterally and Yes Normal hearing present Cognition (Neuro): normal cognition Motor exam (neuro): 5/5 motor strength present throughout Extrem Other: venous exam: No significant superficial varicosities or spider telangiectasias, minimal edema General: No clubbing, No cyanosis and No edema Psych Appearance: grossly normal Mental Status: mental status grossly normal Speech and movement: Normal speech and movement present Assessment & Plan Assessment & Plan (1) AKA stump complication: Code(s): T87.9 - Unspecified complications of amputation stump Category: Medical Plan: I discussed with the patient the suture and staple removal, noting that removal of these is a routine part of the postoperative care plan following above knee amputation. The patient was informed about the normalcy of the itchiness around the incision site and reassured it is likely part of the natural healing process. I emphasized the importance of maintaining clean wound hygiene to prevent any risk of infection. We also reviewed the necessity of routine monitoring and follow-up to ensure continued progress in healing. The patient was informed about potential warning signs of complications and agreed to return in two weeks for further wound assessment. Patient Instructions: - Follow wound care instructions carefully; maintain clean hygiene around the incision site. - Monitor for signs of infection, such as excessive redness or unusual discharge. - Schedule and attend a follow-up appointment in two weeks for further evaluation. - Report any worsening pain or unexpected changes in the healing site. - Avoid strenuous activities that might compromise surgical recovery. Coding Level of Care Code Est Pt Level 4 (93699) Diagnoses AKA stump complication T87.9
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
--- OUTSIDE RECORDS SUMMARY | 2024-05-30 17:02 | XMS_ITS | Encounter Summary ---
Author Organization [facility], Address [address] [place] [address] Phone Care Team Providers Care Senior Mechanical Design Engineer Name Role Phone Jade Lewis MD Primary Care Provider + [phone] Reason for Visit * Reason Comments Med Refill Encounter Details Date Type Department Care Team (Late st Contact Info) Description 04/27/2019 Refill [facility] [address] [place] [address] Mercedes Law MD Social History [...] filedocumented in this encounter Care Teams Senior Mechanical Design Engineer Relationship Specialty Start Date End Date Jade Lewis MD [address] [place], [place] [id number] PCP - General Internal Medicine 04/25/22 documented as of this encounter
--- OUTSIDE RECORDS SUMMARY | 2024-05-30 17:02 | XMS_ITS | Encounter Summary ---
Author Organization [facility] Address [address] [place] [address] Encounter Details Date Type Department Care Team Description 2024-04-25 Telephone [facility] [address] [place] [address] Melania Cota The [facility] care team was unable to complete a Medication Reconciliation with the patient following discharge. ASSESSMENT No Information TREATMENT PLAN No Information
--- OUTSIDE RECORDS SUMMARY | 2024-05-30 17:02 | XMS_ITS | Encounter Summary ---
Author Organization [facility] Address [address] [place] [address] Care Team Providers Care Manager Investment Banking Name Role Phone Cass Turcios MD Primary Care Provider [phone] Encounter Details Date Type Department Care Team (Late st Contact Info) Description 04/02/2024 Lab Requisition [facility] - Main Lab [address] [facility] [place] [address] Cass Turcios MD [address] [place] [address] End stage renal disease (CMS/HCC) Social History [...] for your loved ones. For example, child support officer or elderly care for an older adult? [...] mmol/L LAB CHEMISTRY METHOD 04/02/2024 10:35 AM [facility] Potassium 5.6(H) 3.5 - 5.5 mmol/L LAB CHEMISTRY METHOD 04/02/2024 10:35 AM [facility] Chloride 95(L) 96 - 110 mmol/L LAB CHEMISTRY METHOD 04/02/2024 10:35 AM [facility] CO2 32 21 - 32 mmol/L LAB CHEMISTRY METHOD 04/02/2024 10:35 AM [facility] Anion Gap 8 3 - 11 LAB CHEMISTRY METHOD 04/02/2024 10:35 AM [facility] Glucose 32(LL) 70 - 100 mg/dL LAB CHEMISTRY METHOD 04/02/2024 10:35 AM [facility] BUN 50(H) 5 - 25 mg/dL LAB CHEMISTRY METHOD 04/02/2024 10:35 AM [facility] Creatinine 7.72(H) 0.70 - 1.30 mg/dL LAB CHEMISTRY METHOD 04/02/2024 10:35 AM [facility] eGFR 7(L) >=60 mL/min/1. 73m2 LAB CHEMISTRY METHOD 04/02/2024 10:35 AM [facility] Comment:Calculation based on the??Chronic Kidney Disease Epidemiology Collaboration (CKD-EPI) equation refit??without adjustment for race. BUN/Creatinine Ratio 6.5 LAB CHEMISTRY METHOD 04/02/2024 10:35 AM [facility] Calcium 8.3(L) 8.5 - 10.5 mg/dL LAB CHEMISTRY METHOD 04/02/2024 10:35 AM [facility] Blood Venous blood specimen / Unknown Venipuncture / Unknown 04/02/2024 5:24 AM EST 04/02/2024 8:48 AM EST us Cass Turcios MD LAB BLOOD ORDERABLES Final Resul t [facility] [address] [place] [address], * (ABNORMAL) Complete blood count (04/02/2024 5:24 AM EST) WBC 26.2(H) 4.8 - 10.8 K/mcL LAB HEMETOLOGY METHOD 04/02/2024 9:47 AM [facility] RBC 4.10(L) 4.50 - 5.50 M/mcL LAB HEMETOLOGY METHOD 04/02/2024 9:47 AM [facility] Hemoglobin 9.4(L) 13.5 - 17.5 g/dL LAB HEMETOLOGY METHOD 04/02/2024 9:47 AM [facility] Hematocrit 31.2(L) 42.0 - 54.0 % LAB HEMETOLOGY METHOD 04/02/2024 9:47 AM [facility] MCV 76.1(L) 79.0 - 98.0 FL LAB HEMETOLOGY METHOD 04/02/2024 9:47 AM [facility] MCH 22.9(L) 27.0 - 32.0 pcg LAB HEMETOLOGY METHOD 04/02/2024 9:47 AM [facility] MCHC 30.1(L) 32.0 - 37.0 g/dL LAB HEMETOLOGY METHOD 04/02/2024 9:47 AM [facility] RDW 17.1(H) 11.0 - 15.0 % LAB HEMETOLOGY METHOD 04/02/2024 9:47 AM [facility] Platelets 349 130 - 400 K/mcL LAB HEMETOLOGY METHOD 04/02/2024 9:47 AM [facility] MPV 11.4(H) 7.0 - 11.0 FL LAB HEMETOLOGY METHOD 04/02/2024 9:47 AM EST [facility] NRBC 0.0 <1.0 % LAB HEMETOLOGY METHOD 04/02/2024 9:47 AM EST [facility] NRBC Absolute 0.00 <0.10 K/mcL LAB HEMETOLOGY METHOD 04/02/2024 9:47 AM EST [facility] Blood Venous blood specimen / Unknown Venipuncture / Unknown 04/02/2024 5:24 AM EST 04/02/2024 8:48 AM EST us Cass Turcios MD LAB BLOOD ORDERABLES Final Resul t [facility] [address] [place] [address], documented in this encounter Visit Diagnoses Diagnosis End stage renal disease (CMS/[facility]) End stage renal disease documented in this encounter Care Teams Manager Investment Banking Relationship Specialty Start Date End Date Cass Turcios MD [address] [place] [address] [address] [place] [address] PCP - General Geriatric Medicine 04/02/24 documented as of this encounter
--- OUTSIDE RECORDS SUMMARY | 2024-05-30 17:02 | XMS_ITS | Clinical Summary ---
Author Organization [facility] Address [address] [place] [address] 7 [place] [address] Care Team Providers Care Lift Builder Whole Name Role Phone Unavailable Primary Care Provider [...]
--- OUTSIDE RECORDS SUMMARY | 2024-05-30 17:02 | XMS_ITS | Encounter Summary ---
Author Organization [facility], Address [address] [place] [address] Phone Care Team Providers Care Youtuber Name Role Phone Jade Lewis MD Primary Care Provider + [phone] Reason for Visit * Reason Comments Med Refill Encounter Details Date Type Department Care Team (Late st Contact Info) Description 06/13/2023 Refill [facility] [address] [place] [phone] Malcolm Taylor MD [address] [place] [phone] Social History Tobacco Use Types Packs/Day Years [...] on filedocumented in this encounter Care Teams Youtuber Relationship Specialty Start Date End Date Jade Lewis MD [address] [place] [address] PCP - General Internal Medicine 04/25/22 documented as of this encounter
--- OUTSIDE RECORDS SUMMARY | 2024-05-30 17:02 | XMS_ITS | Encounter Summary ---
Author Organization [facility], Address [address] [place] [address] Phone Care Team Providers Care Concession Stand Attendant Name Role Phone Jade Lewis MD Primary Care Provider [phone] Reason for Visit * Reason Comments Med Refill Encounter Details Date Type Department Care Team (Late st Contact Info) Description 05/22/2023 Refill [facility] [address] [place] [phone] Car Mcdonald MD [facility] [address] [place] [address] Social History Tobacco Use Types Packs/Day Years [...] on filedocumented in this encounter Care Teams Concession Stand Attendant Relationship Specialty Start Date End Date Jade Lewis MD [address] [place] [address] PCP - General Internal Medicine 04/25/22 documented as of this encounter
--- OUTSIDE RECORDS SUMMARY | 2024-05-30 17:02 | XMS_ITS | Encounter Summary ---
Author Organization [facility], Address [address] [place] [address] Phone Care Team Providers Care Interior Specialist Name Role Phone Jade Lewis MD Primary Care Provider + [phone] Reason for Visit * Reason Comments Med Refill Encounter Details Date Type Department Care Team ([facility] st Contact Info) Description 06/25/2019 Refill [facility] [address] [place] [address] Mercedes Law MD Social History [...] on filedocumented in this encounter Care Teams Interior Specialist Relationship Specialty Start Date End Date Jade Lewis MD [address] [place], [place] [phone] PCP - General Internal Medicine 04/25/22 documented as of this encounter
--- OUTSIDE RECORDS SUMMARY | 2024-05-30 17:02 | XMS_ITS | Encounter Summary ---
Author Organization [facility], Address [address] [place] [address] Phone Care Team Providers Care Tool Grinder Operator External Name Role Phone Jade Lewis MD Primary Care Provider [phone] Reason for Visit * Reason Comments Med Refill Encounter Details Date Type Department Care Team (Late st Contact Info) Description 10/27/2023 Refill [facility] [address] [place] [phone] Malcolm Taylor MD [address] [place] [address] [place] [address] Social History Tobacco Use Types Packs/Day Years [...] on filedocumented in this encounter Care Teams Tool Grinder Operator External Relationship Specialty Start Date End Date Jade Lewis MD [address] [place] [address] PCP - General Internal Medicine 04/25/22 documented as of this encounter
--- OUTSIDE RECORDS SUMMARY | 2024-05-30 17:02 | XMS_ITS | Encounter Summary ---
Author Organization [facility] Address [address] [place] [address] Phone Care Team Providers Care Line Service Person Name Role Phone Jade Lewis MD Primary Care Provider + [phone] Reason for Visit * Reason Comments Med Refill Encounter Details Date Type Department Care Team (Late st Contact Info) Description 07/23/2021 Refill [facility] [address] [place] [phone] Alejandro Santana MD [address] [place] [phone] Social History Tobacco Use Types Packs/Day Years [...] on filedocumented in this encounter Care Teams Line Service Person Relationship Specialty Start Date End Date Jade Lewis MD [address] [place] [address] PCP - General Internal Medicine 04/25/22 documented as of this encounter
--- OUTSIDE RECORDS SUMMARY | 2024-05-30 17:02 | XMS_ITS | Encounter Summary ---
Author Organization [facility] Address [address] [place] [address] Phone Care Team Providers Care Cardiovascular Technician Name Role Phone Jade Lewis MD Primary Care Provider + [phone] Reason for Visit * Reason Comments Med Refill Encounter Details Date Type Department Care Team (Late st Contact Info) Description 04/30/2021 Refill [facility] [address] [place] [phone] Alejandro Santana MD [address] [place] [phone] Social History Tobacco Use Types Packs/Day Years [...] on filedocumented in this encounter Care Teams Cardiovascular Technician Relationship Specialty Start Date End Date Jade Lewis MD [address] [place] [address] PCP - General Internal Medicine 04/25/22 documented as of this encounter
--- OUTSIDE RECORDS SUMMARY | 2024-05-30 17:02 | XMS_ITS | Encounter Summary ---
Author Organization [facility] Address [address] [facility] [address] [place] [address] Phone Care Team Providers Care Nursery Technician Name Role Phone Jade Lewis MD Primary Care Provider + [phone] Reason for Visit * Reason Onset Date Comments Med Refill 04/19/2022 Encounter Details Date Type Department Care Team (Late st Contact Info) Description 04/19/2022 Refill [facility] [address] [place] [phone] Loida Madsen Social History Tobacco Use Types [...] on filedocumented in this encounter Care Teams Nursery Technician Relationship Specialty Start Date End Date Jade Lewis MD [address] [place] [address] PCP - General Internal Medicine 04/25/22 documented as of this encounter
--- OUTSIDE RECORDS SUMMARY | 2024-05-30 17:02 | XMS_ITS | Encounter Summary ---
Author Organization [facility], Address [address] [place] [address] Phone Care Team Providers Care Color Drum Worker Name Role Phone Jade Lewis MD Primary Care Provider [phone] Encounter Details Date Type Department Care Team (Late st Contact Info) Description 10/28/2019 Orders Only [facility] [address] [phone] [place] [address] [place] [phone] Social History Tobacco Use Types Packs/Day Years [...] on filedocumented in this encounter Care Teams Color Drum Worker Relationship Specialty Start Date End Date Jade Lewis MD [address] [place] [address] PCP - General Internal Medicine 04/25/22 documented as of this encounter
--- OUTSIDE RECORDS SUMMARY | 2024-05-30 17:02 | XMS_ITS | Encounter Summary ---
Author Organization [facility] Address [address] [place] [address] Care Team Providers Care Swinging Cut Off Saw Operator Name Role Phone Cass Turcios MD Primary Care Provider [phone] Encounter Details Date Type Department Care Team (Late st Contact Info) Description 03/25/2024 Lab Requisition [facility] - Main Lab [address] [facility] [place] [address] Cass Turcios MD [address] [place] [address] Anemia, unspecified; Chronic diastolic (congestive) heart failure [...] your loved ones. For example, child and youth program assistant or elderly care for an older [...] mmol/L LAB CHEMISTRY METHOD 03/25/2024 2:44 PM [facility] Potassium 7.3(HH) 3.5 - 5.5 mmol/L LAB CHEMISTRY METHOD 03/25/2024 2:44 PM [facility] Chloride 101 96 - 110 mmol/L LAB CHEMISTRY METHOD 03/25/2024 2:44 PM [facility] CO2 15(L) 21 - 32 mmol/L LAB CHEMISTRY METHOD 03/25/2024 2:44 PM [facility] Anion Gap 17(H) 3 - 11 LAB CHEMISTRY METHOD 03/25/2024 2:44 PM [facility] Glucose 62(L) 70 - 100 mg/dL LAB CHEMISTRY METHOD 03/25/2024 2:44 PM [facility] BUN 112(H) 5 - 25 mg/dL LAB CHEMISTRY METHOD 03/25/2024 2:44 PM [facility] Creatinine 12.80(HH) 0.70 - 1.30 mg/dL LAB CHEMISTRY METHOD 03/25/2024 2:44 PM [facility] eGFR 4(L) >=60 mL/min/1 .73m2 LAB CHEMISTRY METHOD 03/25/2024 2:44 PM [facility] Comment:Calculation based on the??Chronic Kidney Disease Epidemiology Collaboration (CKD-EPI) equation refit??without adjustment for race. BUN/Creatinine Ratio 8.8 LAB CHEMISTRY METHOD 03/25/2024 2:44 PM [facility] Calcium 8.8 8.5 - 10.5 mg/dL LAB CHEMISTRY METHOD 03/25/2024 2:44 PM [facility] AST (SGOT) 21 10 - 42 unit/L LAB CHEMISTRY METHOD 03/25/2024 2:44 PM [facility] ALT (SGPT) 9(L) 10 - 60 unit/L LAB CHEMISTRY METHOD 03/25/2024 2:44 PM [facility] Alkaline Phosphatase 172(H) 42 - 121 unit/L LAB CHEMISTRY METHOD 03/25/2024 2:44 PM [facility] Total Protein 6.9 6.0 - 8.0 g/dL LAB CHEMISTRY METHOD 03/25/2024 2:44 PM [facility] Albumin 2.7(L) 3.2 - 5.0 g/dL LAB CHEMISTRY METHOD 03/25/2024 2:44 PM [facility] Total Bilirubin 0.4 0.0 - 1.4 mg/dL LAB CHEMISTRY METHOD 03/25/2024 2:44 PM [facility] Blood Venous blood specimen / Unknown Venipuncture / Unknown 03/25/2024 5:09 AM EST 03/25/2024 11:52 AM EST us Cass Turcios MD LAB BLOOD ORDERABLES Final Resul t [facility] [address] [place] [address], * (ABNORMAL) Complete blood count (03/25/2024 5:09 AM EST) WBC 14.1(H) 4.8 - 10.8 K/mcL LAB HEMETOLOGY METHOD 03/25/2024 2:27 PM [facility] RBC 4.60 4.50 - 5.50 M/mcL LAB HEMETOLOGY METHOD 03/25/2024 2:27 PM [facility] Hemoglobin 10.5(L) 13.5 - 17.5 g/dL LAB HEMETOLOGY METHOD 03/25/2024 2:27 PM [facility] Hematocrit 35.9(L) 42.0 - 54.0 % LAB HEMETOLOGY METHOD 03/25/2024 2:27 PM [facility] MCV 77.7(L) 79.0 - 98.0 FL LAB HEMETOLOGY METHOD 03/25/2024 2:27 PM [facility] MCH 22.7(L) 27.0 - 32.0 pcg LAB HEMETOLOGY METHOD 03/25/2024 2:27 PM [facility] MCHC 29.2(L) 32.0 - 37.0 g/dL LAB HEMETOLOGY METHOD 03/25/2024 2:27 PM [facility] RDW 17.5(H) 11.0 - 15.0 % LAB HEMETOLOGY METHOD 03/25/2024 2:27 PM [facility] Platelets 254 130 - 400 K/mcL LAB HEMETOLOGY METHOD 03/25/2024 2:27 PM [facility] MPV LAB HEMETOLOGY METHOD 03/25/2024 2:27 PM [facility] Comment:Not Measured NRBC 0.0 <1.0 % LAB HEMETOLOGY METHOD 03/25/2024 2:27 PM [facility] NRBC Absolute 0.00 <0.10 K/mcL LAB HEMETOLOGY METHOD 03/25/2024 2:27 PM [facility] Blood Venous blood specimen / Unknown Venipuncture / Unknown 03/25/2024 5:09 AM EST 03/25/2024 11:52 AM EST us Cass Turcios MD LAB BLOOD ORDERABLES Final Resul t [facility] [address] [place] [address], documented in this encounter Visit Diagnoses Diagnosis Anemia, unspecified Chronic diastolic (congestive) heart failure Other pericardial effusion (noninflammatory) End stage renal disease (CMS/HCC) End stage renal disease documented in this encounter Additional Health Concerns Infection Onset Date Last Indicated Resolved Time Respiratory Rule-Out 03/25/2024 03/25/2024 025 8:14 PM EST documented as of this encounter Care Teams Swinging Cut Off Saw Operator Relationship Specialty Start Date End Date Cass Turcios MD [address] [facility] [address] [place] [address] PCP - General Geriatric Medicine 04/02/24 documented as of this encounter
--- OUTSIDE RECORDS SUMMARY | 2024-05-30 17:02 | XMS_ITS | Encounter Summary ---
Author Organization [facility], Address [address] [place] [address] Phone Care Team Providers Care Industrial Gas Servicer Helper Name Role Phone Jade Lewis MD Primary Care Provider + [phone] Reason for Visit * Reason Comments Med Refill Encounter Details Date Type Department Care Team ([facility] st Contact Info) Description 10/18/2023 Refill [facility] [address] [place] [phone] Malcolm Taylor MD [address] [place] [address] [place] [phone] Social History Tobacco Use Types Packs/Day Years [...] 10/19/2023 Unless otherwise specified, test(s) performed at: [facility], [address] [place] [address] UNDERCOLLAR BASTER: Homero Garcia M.D. For any questions, please call customer service at FREQUENCY:OTHER Resulting Agency Comment Specimen source: Blood us Car Mcdonald MD LAB BLOOD ORDERABLES Final Re sult [facility] See order comments or contact performing lab Unknown, [place] documented in this encounter Visit Diagnoses Not on filedocumented in this encounter Care Teams Industrial Gas Servicer Helper Relationship Specialty Start Date End Date Jade Lewis MD [address] [place] [address] PCP - General Internal Medicine 04/25/22 documented as of this encounter
--- OUTSIDE RECORDS SUMMARY | 2024-05-30 17:02 | XMS_ITS | Clinical Summary ---
Author Organization [facility] Address [address] [place] [address] Phone Care Team Providers Care Inspector Barrel Name Role Phone Cass Turcios MD Primary Care Provider [phone] Allergies No known active allergies Medications Ventolin [...] day if needed for constipation. 4 Active Active Problems Problem Noted Date Diagnosed Date Uremia 03/25/2024 Encounters Date Type Department Care Team Description 05/30/2024 Lab Requisition [facility] [address] [place] [phone] Laurence Florence MD Chronic respiratory failure with hypoxia (CMS/HCC); Encounter for orthopedic aftercare following surgical amputation; Encounter for surgical aftercare following surgery on the circulatory system; Peripheral vascular disease, unspecified (CMS/HCC) 05/30/2024 Lab Requisition [facility] [address] [place] [phone] Laurence Florence MD Chronic respiratory failure with hypoxia (CMS/HCC); Encounter for orthopedic aftercare following surgical amputation; Encounter for surgical aftercare following surgery on the circulatory system; Peripheral vascular disease, unspecified (CMS/HCC) 05/28/2024 Lab Requisition [facility] [address] [place] [phone] Laurence Florence MD Anemia, unspecified; End stage renal disease ([facility]/HCC); Unspecified asthma, uncomplicated 05/24/2024 Lab Requisition [facility] [address] [place] [phone] Laurence Florence MD Chronic combined systolic (congestive) and diastolic (congestive) heart failure ([facility]); Type 2 diabetes mellitus without complications ([facility]); End stage renal disease ([facility]) 05/21/2024 Lab Requisition [facility] [address] [place] [phone] Laurence Florence MD Chronic combined systolic (congestive) and diastolic (congestive) heart failure ([facility]); End stage renal disease ([facility]) 05/20/2024 Lab Requisition [facility] [address] [place] [phone] Laurence Florence MD Elevated white blood cell count, unspecified 05/18/2024 Lab Requisition [facility] [address] [place] [phone] Elsy Christina PA Unspecified systolic (congestive) heart failure ([facility]); Type 2 diabetes mellitus without complications ([facility]); End stage renal disease ([facility]) 05/17/2024 Lab Requisition [facility] [address] [place] [phone] Laurence Florence MD Type 2 diabetes mellitus without complications ([facility]); End stage renal disease ([facility]) 04/02/2024 Lab Requisition [facility] [address] [place] [phone] Cass Turcios MD End stage renal disease ([facility]) 03/25/2024 7:29 AM EST - 03/27/2024 6:55 PM EST Hospital [facility] [address] [place] [phone] Noman Conteh MD Bukalo, Nermina, MD Japaridze, Anna, MD Acute kidney injury superimposed on chronic kidney disease ([facility]/HCC) (Primary Dx); Hyperkalemia; Urinary tract infection without hematuria, site unspecified Discharge Disposition: [facility] Facility 03/25/2024 Lab Requisition [facility] Lab [address] [facility] [place] [phone] Cass Turcios MD Anemia, unspecified; Chronic diastolic (congestive) heart failure ([facility]); Other pericardial effusion (noninflammatory); End stage renal disease ([facility]) from Last 3 Months Surgical History Surgery Date Site/Laterality Comments TOE AMPUTATION IR DIALYSIS CATH INSERT VASCULAR ACCESS Medical History Medical History Date Comments ESRD (end stage renal disease) on dialysis ([facility]/ [facility]) MWF Hypertension Hyperlipidemia Gouty arthritis Diabetes mellitus ([facility]) GERD (gastroesophageal reflux disease) COPD (chronic obstructive pulmonary disease) ([facility]) Social History Tobacco Use Types Packs/Day Years [...] your loved ones. For example, early childhood aide classroom or elderly care for an older adult? [...] 1966 Diabetes: Annual Retina Eye Exam 1966 Hepatitis A Vaccines (1 of 2 - Risk 2-dose series) 1975 RSV Immunization Patients 60+ Years Old (1 - Risk 60-74 years 1-dose series) 2016 Abdominal Aortic Aneurysm (AAA) Screen 02/06/2022 Colorectal Cancer Screening: Colonoscopy 02/06/2022 Medicare Annual Wellness Visit 02/06/2022 COVID-19 Vaccine ( season) 2023 12/17/2021, 08/20/2021, 01/08/2021, Additional history exists Diabetes: Blood Sugar Control Test (HGBA1C) 11/18/2024 05/18/2024, 05/17/2024, 09/14/2023 Depression Screening 03/14/2025 03/14/2024 Social Influencers of Health Screening 03/25/2025 03/25/2024 Falls Risk Assessment 03/27/2025 03/27/2024 Hypertension/CHF/CAD Annual BMP Blood Test 05/30/2025 05/30/2024, 05/29/2024, 05/24/2024, Additional history exists Cholesterol Screening (Lipid Panel) 09/13/2028 09/14/2023, 09/14/2023, 06/23/2022, Additional history exists DTaP,Tdap,and Td Vaccines (6 - Td or [...] Procedure Name Priority Date/Time Associated Diagnosis Comments CULTURE BLOOD Routine 05/30/2024 7:41 AM EDT Chronic respiratory failure with hypoxia Encounter for orthopedic aftercare following surgical amputation Encounter for surgical aftercare following surgery on the circulatory system Peripheral vascular disease, unspecified (CMS/HCC) LACTATE Routine 05/30/2024 7:36 AM EDT Chronic respiratory failure with hypoxia Encounter for orthopedic aftercare following surgical amputation Encounter for surgical aftercare following surgery on the circulatory system Peripheral vascular disease, unspecified (CMS/HCC) C-REACTIVE PROTEIN Routine 05/30/2024 7: 36 AM EDT Chronic respiratory failure with hypoxia Encounter for orthopedic aftercare following surgical amputation Encounter for surgical aftercare following surgery on the circulatory system Peripheral vascular disease, unspecified (CMS/HCC) SEDIMENTATION RATE Routine 05/30/2024 7: 36 AM EDT Chronic respiratory failure with hypoxia Encounter for orthopedic aftercare following surgical amputation Encounter for surgical aftercare following surgery on the circulatory system Peripheral vascular disease, unspecified (CMS/HCC) COMPREHENSIVE METABOLIC PANEL Routine 05/30/2024 7:36 AM EDT Chronic respiratory failure with hypoxia Encounter for orthopedic aftercare following surgical amputation Encounter for surgical aftercare following surgery on the circulatory system Peripheral vascular disease, unspecified (CMS/HCC) COMPLETE BLOOD COUNT Routine 05/30/2024 7:36 AM EDT Chronic respiratory failure with hypoxia Encounter for orthopedic aftercare following surgical amputation Encounter for surgical aftercare following surgery on the circulatory system Peripheral vascular disease, unspecified (CMS/HCC) CULTURE BLOOD Routine 05/30/2024 7:36 AM EDT Chronic respiratory failure with hypoxia Encounter for orthopedic aftercare following surgical amputation Encounter for surgical aftercare following surgery on the circulatory system Peripheral vascular disease, unspecified (CMS/HCC) MAGNESIUM Routine 05/29/2024 5:09 AM EDT Anemia, unspecified End stage renal disease (CMS/HCC) Unspecified asthma, uncomplicated COMPLETE BLOOD COUNT Routine 05/29/2024 5:09 AM EDT Anemia, unspecified End stage renal disease (CMS/HCC) Unspecified asthma, uncomplicated RENAL FUNCTION PANEL Routine 05/29/2024 5:09 AM EDT Anemia, unspecified End stage renal disease (CMS/HCC) Unspecified asthma, uncomplicated CBC WITH AUTO DIFFERENTIAL Routine 05/24/2024 5:56 AM EDT Chronic combined systolic (congestive) and diastolic (congestive) heart failure Type 2 diabetes mellitus without complications End stage renal disease (CMS/HCC) BASIC METABOLIC PANEL Routine 05/24/2024 5:56 AM EDT Chronic combined systolic (congestive) and diastolic (congestive) heart failure Type 2 diabetes mellitus without complications End stage renal disease (CMS/HCC) CBC AND DIFFERENTIAL Routine 05/24/2024 5:56 AM EDT Chronic combined systolic (congestive) and diastolic (congestive) heart failure Type 2 diabetes mellitus without complications End stage renal disease (CMS/HCC) CBC WITH AUTO DIFFERENTIAL Routine 05/21/2024 5:40 AM EDT Chronic combined systolic (congestive) and diastolic (congestive) heart failure (CMS/HCC) End stage renal disease (CMS/HCC) BASIC METABOLIC PANEL Routine 05/21/2024 5:40 AM EDT Chronic combined systolic (congestive) and diastolic (congestive) heart failure (CMS/HCC) End stage renal disease (CMS/HCC) CBC AND DIFFERENTIAL Routine 05/21/2024 5:40 AM EDT Chronic combined systolic (congestive) and diastolic (congestive) heart failure (CMS/HCC) End stage renal disease (CMS/HCC) COMPREHENSIVE METABOLIC PANEL Routine 05/20/2024 6:04 AM EDT Elevated white blood cell count, unspecified COMPLETE BLOOD COUNT Routine 05/20/2024 6:04 AM EDT Elevated white blood cell count, unspecified CBC WITH AUTO DIFFERENTIAL Routine 05/18/2024 7:20 AM EDT Unspecified systolic (congestive) heart failure (CMS/HCC) Type 2 diabetes mellitus without complications (CMS/HCC) End stage renal disease (CMS/HCC) HEMOGLOBIN A1C Routine 05/18/2024 7:20 AM EDT Unspecified systolic (congestive) heart failure (CMS/HCC) Type 2 diabetes mellitus without complications (CMS/HCC) End stage renal disease (CMS/HCC) BASIC METABOLIC PANEL Routine 05/18/2024 7:20 AM EDT Unspecified systolic (congestive) heart failure (CMS/HCC) Type 2 diabetes mellitus without complications (CMS/HCC) End stage renal disease (CMS/HCC) CBC AND DIFFERENTIAL Routine 05/18/2024 7:20 AM EDT Unspecified systolic (congestive) heart failure (CMS/HCC) Type 2 diabetes mellitus without complications (CMS/HCC) End stage renal disease (CMS/HCC) BASIC METABOLIC PANEL Routine 05/17/2024 5:37 AM EDT Type 2 diabetes mellitus without complications (CMS/HCC) End stage renal disease (CMS/HCC) HEMOGLOBIN A1C Routine 05/17/2024 5:37 AM EDT Type 2 diabetes mellitus without complications (CMS/HCC) End stage renal disease (CMS/HCC) COMPLETE BLOOD COUNT Routine 05/17/2024 5:37 AM EDT Type 2 diabetes mellitus without complications (CMS/HCC) End stage renal disease (CMS/HCC) BASIC METABOLIC [...] 12 :40 PM EST HEMODIALYSIS INPATIENT Routine 03/26/2024 10:59 AM EST POCT GLUCOSE BLOOD Routine [...] 03/25/2024 12:01 PM EST HEMODIALYSIS INPATIENT Routine 03/25/2024 10:36 AM EST [place] URINE CULTURE TUBE [...] from Last 3 Months Results * (ABNORMAL) Sedimentation rate (05/30/2024 7:36 AM EDT) Pathologist [facility] Sed Rate >130(H) 0 - 20 mm/hr LAB HEMETOLOGY METHOD 05/30/2024 8:57 AM EDT [facility] Blood Venous blood specimen / Unknown Venipuncture / Unknown 05/30/2024 7:36 AM EDT 05/30/2024 8:11 AM EDT Narrative [facility] - 05/30/2024 8:57 AM EDT Rechecked. us Laurence Florence MD LAB BLOOD ORDERABLES Final Resu lt [facility] [address] [place] [address], * (ABNORMAL) Complete blood count (05/30/2024 7:36 AM EDT) Only the most recent of6 resultswithin the time period is included. WBC 9.7 4.8 - 10.8 K/mcL LAB HEMETOLOGY METHOD 05/30/2024 8:29 AM [facility] RBC 3.20(L) 4.50 - 5.50 M/mcL LAB HEMETOLOGY METHOD 05/30/2024 8:29 AM [facility] Hemoglobin 7.7(L) 13.5 - 17.5 g/dL LAB HEMETOLOGY METHOD 05/30/2024 8:29 AM [facility] Hematocrit 26.0(L) 42.0 - 54.0 % LAB HEMETOLOGY METHOD 05/30/2024 8:29 AM [facility] MCV 81.5 79.0 - 98.0 FL LAB HEMETOLOGY METHOD 05/30/2024 8:29 AM [facility] MCH 24.1(L) 27.0 - 32.0 pcg LAB HEMETOLOGY METHOD 05/30/2024 8:29 AM [facility] MCHC 29.6(L) 32.0 - 37.0 g/dL LAB HEMETOLOGY METHOD 05/30/2024 8:29 AM [facility] RDW 17.8(H) 11.0 - 15.0 % LAB HEMETOLOGY METHOD 05/30/2024 8:29 AM [facility] Platelets 244 130 - 400 K/mcL LAB HEMETOLOGY METHOD 05/30/2024 8:29 AM [facility] MPV 11.1(H) 7.0 - 11.0 FL LAB HEMETOLOGY METHOD 05/30/2024 8:29 AM [facility] NRBC 0.0 <1.0 % LAB HEMETOLOGY METHOD 05/30/2024 8:29 AM [facility] NRBC Absolute 0.00 <0.10 K/mcL LAB HEMETOLOGY METHOD 05/30/2024 8:29 AM [facility] Blood Venous blood specimen / Unknown Venipuncture / Unknown 05/30/2024 7:36 AM EDT 05/30/2024 8:11 AM EDT us Laurence Florence MD LAB BLOOD ORDERABLES Final Resu lt Performing Organization Address [facility]/ZIP Co de Phone Number [facility] [address] [place] [address], [place] [phone] * (ABNORMAL) C-reactive protein (05/30/2024 7:36 AM EDT) C-Reactive Protein 11.60(H) <=0.50 mg/dL LAB CHEMISTRY METHOD 05/30/2024 8:51 AM EDT [facility] Blood Venous blood specimen / Unknown Venipuncture / Unknown 05/30/2024 7:36 AM EDT 05/30/2024 8:11 AM EDT us Laurence Florence MD LAB BLOOD ORDERABLES Final Resu lt Performing Organization Address [facility] Co de Phone Number [facility] [address] [place] [address], [place] [phone] * Lactate (05/30/2024 7:36 AM EDT) [facility] Lactate 0.6 0.4 - 2.0 mmol/L LAB CHEMISTRY METHOD 05/30/2024 8:47 AM EDT [facility] Blood Venous blood specimen / Unknown Venipuncture / Unknown 05/30/2024 7:36 AM EDT 05/30/2024 8:11 AM EDT us Laurence Florence MD LAB BLOOD ORDERABLES Final Resu lt Performing Organization Address [facility]/ZIP Co de Phone Number [facility] [address] [place] [address], [place] [phone] * (ABNORMAL) Comprehensive metabolic panel (05/30/2024 7:36 AM EDT) Only the most recent of4 resultswithin the time period is included. Sodium 140 133 - 145 mmol/L LAB CHEMISTRY METHOD 05/30/2024 9:08 AM [facility] Potassium 4.2 3.5 - 5.5 mmol/L LAB CHEMISTRY METHOD 05/30/2024 9:08 AM [facility] Chloride 104 96 - 110 mmol/L LAB CHEMISTRY METHOD 05/30/2024 9:08 AM [facility] CO2 28 21 - 32 mmol/L LAB CHEMISTRY METHOD 05/30/2024 9:08 AM [facility] Anion Gap 8 3 - 11 LAB CHEMISTRY METHOD 05/30/2024 9:08 AM [facility] Glucose 77 70 - 100 mg/dL LAB CHEMISTRY METHOD 05/30/2024 9:08 AM [facility] BUN 35(H) 5 - 25 mg/dL LAB CHEMISTRY METHOD 05/30/2024 9:08 AM [facility] Creatinine 5.30(H) 0.70 - 1.30 mg/dL LAB CHEMISTRY METHOD 05/30/2024 9:08 AM [facility] eGFR 11(L) >=60 mL/min/1. 73m2 LAB CHEMISTRY METHOD 05/30/2024 9:08 AM [facility] Comment:Calculation based on the??Chronic Kidney Disease Epidemiology Collaboration (CKD-EPI) equation refit??without adjustment for race. BUN/Creatinine Ratio 6.6 LAB CHEMISTRY METHOD 05/30/2024 9:08 AM [facility] Calcium 9.0 8.5 - 10.5 mg/dL LAB CHEMISTRY METHOD 05/30/2024 9:08 AM [facility] AST (SGOT) 10 10 - 42 unit/L LAB CHEMISTRY METHOD 05/30/2024 9:08 AM [facility] ALT (SGPT) 13 10 - 60 unit/L LAB CHEMISTRY METHOD 05/30/2024 9:08 AM EDT [facility] Alkaline Phosphatase 141(H) 42 - 121 unit/L LAB CHEMISTRY METHOD 05/30/2024 9:08 AM EDT [facility] Total Protein 6.3 6.0 - 8.0 g/dL LAB CHEMISTRY METHOD 05/30/2024 9:08 AM EDT [facility] Albumin 2.5(L) 3.2 - 5.0 g/dL LAB CHEMISTRY METHOD 05/30/2024 9:08 AM EDT [facility] Total Bilirubin 0.5 0.0 - 1.4 mg/dL LAB CHEMISTRY METHOD 05/30/2024 9:08 AM EDT [facility] Blood Venous blood specimen / Unknown Venipuncture / Unknown 05/30/2024 7:36 AM EDT 05/30/2024 8:11 AM EDT us Laurence Florence MD LAB BLOOD ORDERABLES Final Resu lt Performing Organization Address [facility]/ZIP Co de Phone Number [facility] [address] [place] [address], [place] [phone] * (ABNORMAL) Magnesium (05/29/2024 5:09 AM EDT) Only the most recent of3 resultswithin the time period is included. Magnesium 1.8(L) 1.9 - 2.6 mg/dL LAB CHEMISTRY METHOD 05/29/2024 9:20 AM EDT [facility] Blood Venous blood specimen / Unknown Venipuncture / Unknown 05/29/2024 5:09 AM EDT 05/29/2024 8:42 AM EDT us Laurence Florence MD LAB BLOOD ORDERABLES Final Resu lt Performing Organization Address City/[facility]/ZIP Co de Phone Number [facility] [address] [place] [address], * (ABNORMAL) Renal function panel (05/29/2024 5:09 AM EDT) Sodium 135 133 - 145 mmol/L LAB CHEMISTRY METHOD 05/29/2024 10:03 AM [facility] Potassium 4.7 3.5 - 5.5 mmol/L LAB CHEMISTRY METHOD 05/29/2024 10:03 AM [facility] Chloride 99 96 - 110 mmol/L LAB CHEMISTRY METHOD 05/29/2024 10:03 AM [facility] CO2 27 21 - 32 mmol/L LAB CHEMISTRY METHOD 05/29/2024 10:03 AM [facility] Anion Gap 9 3 - 11 LAB CHEMISTRY METHOD 05/29/2024 10:03 AM [facility] Glucose 22(LL) 70 - 100 mg/dL LAB CHEMISTRY METHOD 05/29/2024 10:03 AM [facility] BUN 60(H) 5 - 25 mg/dL LAB CHEMISTRY METHOD 05/29/2024 10:03 AM [facility] Creatinine 7.71(H) 0.70 - 1.30 mg/dL LAB CHEMISTRY METHOD 05/29/2024 10:03 AM [facility] eGFR 7(L) >=60 mL/min/1. 73m2 LAB CHEMISTRY METHOD 05/29/2024 10:03 AM [facility] Comment:Calculation based on the??Chronic Kidney Disease Epidemiology Collaboration (CKD-EPI) equation refit??without adjustment for race. BUN/Creatinine Ratio 7.8 LAB CHEMISTRY METHOD 05/29/2024 10:03 AM [facility] Albumin 2.4(L) 3.2 - 5.0 g/dL LAB CHEMISTRY METHOD 05/29/2024 10:03 AM [facility] Calcium 8.7 8.5 - 10.5 mg/dL LAB CHEMISTRY METHOD 05/29/2024 10:03 AM [facility] Phosphorus 4.7(H) 2.5 - 4.5 mg/dL LAB CHEMISTRY METHOD 05/29/2024 10:03 AM [facility] Blood Venous blood specimen / Unknown Venipuncture / Unknown 05/29/2024 5:09 AM EDT 05/29/2024 8:42 AM EDT us Laurence Florence MD LAB BLOOD ORDERABLES Final Resu lt [facility] [address] [place] [address], [place] [phone] * (ABNORMAL) CBC auto differential (05/24/2024 5:56 AM EDT) Only the most recent of5 resultswithin the time period is included. WBC 9.3 4.8 - 10.8 K/mcL LAB HEMETOLOGY METHOD 05/24/2024 9:31 AM [facility] RBC 3.40(L) 4.50 - 5.50 M/mcL LAB HEMETOLOGY METHOD 05/24/2024 9:31 AM [facility] Hemoglobin 8.5(L) 13.5 - 17.5 g/dL LAB HEMETOLOGY METHOD 05/24/2024 9:31 AM [facility] Hematocrit 28.2(L) 42.0 - 54.0 % LAB HEMETOLOGY METHOD 05/24/2024 9:31 AM [facility] MCV 82.0 79.0 - 98.0 FL LAB HEMETOLOGY METHOD 05/24/2024 9:31 AM [facility] MCH 24.7(L) 27.0 - 32.0 pcg LAB HEMETOLOGY METHOD 05/24/2024 9:31 AM [facility] MCHC 30.1(L) 32.0 - 37.0 g/dL LAB HEMETOLOGY METHOD 05/24/2024 9:31 AM [facility] RDW 17.8(H) 11.0 - 15.0 % LAB HEMETOLOGY METHOD 05/24/2024 9:31 AM [facility] Platelets 335 130 - 400 K/mcL LAB HEMETOLOGY METHOD 05/24/2024 9:31 AM [facility] MPV 10.5 7.0 - 11.0 FL LAB HEMETOLOGY METHOD 05/24/2024 9:31 AM [facility] NRBC 0.0 <1.0 % LAB HEMETOLOGY METHOD 05/24/2024 9:31 AM [facility] NRBC Absolute 0.00 <0.10 K/mcL LAB HEMETOLOGY METHOD 05/24/2024 9:31 AM [facility] Neutrophils Relative 67.5 % LAB HEMETOLOGY METHOD 05/24/2024 9:31 AM [facility] Lymphocytes Relative 16.4 % LAB HEMETOLOGY METHOD 05/24/2024 9:31 AM [facility] Monocytes Relative 10.6 % LAB HEMETOLOGY METHOD 05/24/2024 9:31 AM [facility] Eosinophils Relative 4.5 % LAB HEMETOLOGY METHOD 05/24/2024 9:31 AM [facility] Basophils Relative 0.4 % LAB HEMETOLOGY METHOD 05/24/2024 9:31 AM [facility] Immature Granulocytes Relative 0.6 % LAB HEMETOLOGY METHOD 05/24/2024 9:31 AM [facility] Neutrophils Absolute 6.24 1.50 - 7.00 K/mcL LAB HEMETOLOGY METHOD 05/24/2024 9:31 AM EDT [facility] Lymphocytes Absolute 1.52 1.00 - 5.00 K/mcL LAB HEMETOLOGY METHOD 05/24/2024 9:31 AM EDT [facility] Monocytes Absolute 0.98 0.20 - 1.00 K/mcL LAB HEMETOLOGY METHOD 05/24/2024 9:31 AM EDT [facility] Eosinophils Absolute 0.42 0.00 - 0.50 K/[facility] LAB HEMETOLOGY METHOD 05/24/2024 9:31 AM EDT [facility] Basophils Absolute 0.04 0.00 - 0.20 K/[facility] LAB HEMETOLOGY METHOD 05/24/2024 9:31 AM EDT [facility] Immature Granulocytes Absolute 0.06(H) 0.00 - 0.03 K/mcL LAB HEMETOLOGY METHOD 05/24/2024 9:31 AM EDT [facility] Blood Venous blood specimen / Unknown Venipuncture / Unknown 05/24/2024 5:56 AM EDT 05/24/2024 8:41 AM EDT us Laurence Florence MD LAB BLOOD ORDERABLES Final Resu lt [facility] [address] [place] [address], * (ABNORMAL) Basic metabolic panel (05/24/2024 5:56 AM EDT) Only the most recent of9 resultswithin the time period is included. Sodium 134 133 - 145 mmol/L LAB CHEMISTRY METHOD 05/24/2024 9:53 AM EDT [facility] Potassium 4.8 3.5 - 5.5 mmol/L LAB [facility]STR[facility]24 [facility] Chloride 100 96 - 110 mmol/L LAB CHEMISTRY METHOD 05/24/2024 9:53 AM EDT [facility] CO2 26 21 - 32 mmol/L LAB CHEMISTRY METHOD 05/24/2024 9:53 AM [facility] Anion Gap 8 3 - 11 LAB CHEMISTRY METHOD 05/24/2024 9:53 AM [facility] Glucose 131(H) 70 - 100 mg/dL LAB CHEMISTRY METHOD 05/24/2024 9:53 AM [facility] BUN 67(H) 5 - 25 mg/dL LAB CHEMISTRY METHOD 05/24/2024 9:53 AM [facility] Creatinine 7.92(H) 0.70 - 1.30 mg/dL LAB CHEMISTRY METHOD 05/24/2024 9:53 AM [facility] eGFR 7(L) >=60 mL/min/1. 73m2 LAB CHEMISTRY METHOD 05/24/2024 9:53 AM [facility] Comment:Calculation based on the??Chronic Kidney Disease Epidemiology Collaboration (CKD-EPI) equation refit??without adjustment for race. BUN/Creatinine Ratio 8.5 LAB CHEMISTRY METHOD 05/24/2024 9:53 AM [facility] Calcium 8.6 8.5 - 10.5 mg/dL LAB CHEMISTRY METHOD 05/24/2024 9:53 AM [facility] Blood Venous blood specimen / Unknown Venipuncture / Unknown 05/24/2024 5:56 AM EDT 05/24/2024 8:41 AM EDT us Laurence Florence MD LAB BLOOD ORDERABLES Final Resu lt [facility] [address] [place] [address], * (ABNORMAL) Hemoglobin A1c (05/18/2024 7:20 AM EDT) Only the most recent of2 resultswithin the time period is included. Pathologist [facility] Hemoglobin A1C 7.2(H) <6.5 % LAB CHEMISTRY METHOD 05/19/2024 12:06 PM EDT [facility] Mean Bld Glu Estim. 160 mg/dL LAB CHEMISTRY METHOD 05/19/2024 12:06 PM EDT [facility] Blood Venous blood specimen / Unknown Venipuncture / Unknown 05/18/2024 7:20 AM EDT 05/18/2024 9:58 AM EDT us Elsy MONTERO LAB BLOOD ORDERABLES Final Re sult [facility] [address] [place] [address], [place] [phone] * (ABNORMAL) POCT Glucose, blood (03/27/2024 4:55 PM EST) Only the most recent of10 resultswithin the time period is included. [facility] Glucose POCT 276(H) 70 - 100 mg/dL 03/27/2024 4:56 PM EST [facility] Blood Capillary blood specimen / Unknown 03/27/2024 4:55 PM EST 03/27/2024 4:57 PM EST us Marion Hernandez MD LAB POINT OF CARE TE ST DOCKED DEVICE UNSOLICITED RESULTS Final Result [facility] [address] [place] [address], [place] [phone] * Culture blood (03/26/2024 2:56 PM EST) [facility] Culture, Blood No growth at 5 days 03/31/2024 4:01 PM EST [facility] Blood Venous blood specimen / Unknown Venipuncture / Unknown 03/26/2024 2:56 PM EST 03/26/2024 3:05 PM EST us Marion Hernandez MD LAB MICROBIOLOGY - GENERAL ORD ERABLES Final Result Performing Organization Address [facility]/ZIP Co de Phone Number [facility] [address] [place] [address], [place] [phone] * Lavender tube (03/26/2024 6:50 AM EST) [facility] Extra Tube Hold for add-ons. 03/26/2024 9:01 AM EST [facility] Comment:Auto resulted. Blood Venous blood specimen / Unknown 03/26/2024 6:50 AM EST 03/26/2024 7:01 AM EST Marion Hernandez MD LAB BLOOD ORDERABLES Final Res ult Performing Organization Address [facility]/ZIP Co de Phone Number [facility] [address] [place] [address], [place] [phone] * Respiratory virus panel molecular study (03/25/2024 6:49 PM EST) [facility] Adenovirus Detection by PCR Not Detected Not Detected LAB MICROBIOLOGY METHOD 03/25/2024 8:14 PM [facility] Influenza A PCR Not Detected Not Detected LAB MICROBIOLOGY METHOD 03/25/2024 8:14 PM [facility] Influenza B PCR Not Detected Not Detected LAB MICROBIOLOGY METHOD 03/25/2024 8:14 PM [facility] Coronavirus 229E Not Detected Not Detected LAB MICROBIOLOGY METHOD 03/25/2024 8:14 PM [facility] Coronavirus HKU1 Not Detected Not Detected LAB MICROBIOLOGY METHOD 03/25/2024 8:14 PM [facility] Coronavirus OC43 Not Detected Not Detected LAB MICROBIOLOGY METHOD 03/25/2024 8:14 PM [facility] Coronavirus NL63 Not Detected Not Detected LAB MICROBIOLOGY METHOD 03/25/2024 8:14 PM EST [facility] Parainfluenza Virus 1 Not Detected Not Detected LAB MICROBIOLOGY METHOD 03/25/2024 8:14 PM [facility] Parainfluenza Virus 2 Not Detected Not Detected LAB MICROBIOLOGY METHOD 03/25/2024 8:14 PM [facility] Parainfluenza Virus 3 Not Detected Not Detected LAB MICROBIOLOGY METHOD 03/25/2024 8:14 PM [facility] Parainfluenza Virus 4 Not Detected Not Detected LAB MICROBIOLOGY METHOD 03/25/2024 8:14 PM [facility] RSV PCR Not Detected Not Detected LAB MICROBIOLOGY METHOD 03/25/2024 8:14 PM [facility] Human Metapneumovirus A and B Not Detected Not Detected LAB MICROBIOLOGY METHOD 03/25/2024 8:14 PM [facility] Rhinovirus/Entero virus Not Detected Not Detected LAB MICROBIOLOGY METHOD 03/25/2024 8:14 PM [facility] Bordetella pertussis Not Detected Not Detected LAB MICROBIOLOGY METHOD 03/25/2024 8:14 PM [facility] Bordetella parapertussis Not Detected Not Detected LAB MICROBIOLOGY METHOD 03/25/2024 8:14 PM [facility] Mycoplasma pneumo by PCR Not Detected Not Detected LAB MICROBIOLOGY METHOD 03/25/2024 8:14 PM [facility] Chlamydia pneumoniae Not Detected Not Detected LAB MICROBIOLOGY METHOD 03/25/2024 8:14 PM [facility] SARS COV-2 Not Detected Not Detected LAB MICROBIOLOGY METHOD 03/25/2024 8:14 PM [facility] Swab Both anterior nares / Unknown Non-blood Collection / Unknown 03/25/2024 6:49 PM EST 03/25/2024 6:59 PM EST [facility] - 03/25/2024 8:14 PM EST Testing was performed using the Equiom Respiratory Pathogen PCR Assay. All results must [...] of detection. Radha MONTERO LAB MICROBIOLOGY - GENERAL ORDE RABLES Final Result Performing Organization Address [facility] Co de Phone Number [facility] [address] [place] [address], [place] [phone] * Ethanol (03/25/2024 12:01 PM EST) [facility] Ethanol Level <3 0 - 10 mg/dL LAB CHEMISTRY METHOD 03/25/2024 1:57 PM EST [facility] Blood Venous blood specimen / Unknown Venipuncture / Unknown 03/25/2024 12:01 PM EST 03/25/2024 12:20 PM EST Radha MONTERO LAB BLOOD ORDERABLES Final Resu lt Performing Organization Address [facility] de Phone Number [facility] [address] [place] [address], [place] [phone] * (ABNORMAL) Urinalysis with reflex microscopic and culture (03/25/2024 8:26 AM EST) [facility] Specific [place] Urine 1.015 1.003 - 1.030 LAB URINALYSIS - AUTOMATED METHOD 03/25/2024 9:54 AM [facility] pH, Urine 6.5 5.0 - 8.0 pH LAB URINALYSIS - AUTOMATED METHOD 03/25/2024 9:54 AM [facility] Leukocytes, Urine Trace(A) Negative LAB URINALYSIS - AUTOMATED METHOD 03/25/2024 9:54 AM [facility] Nitrite, Urine Positive(A) Negative LAB URINALYSIS - AUTOMATED METHOD 03/25/2024 9:54 AM [facility] Protein, Urine >=300(A) <=Trace mg/dL LAB URINALYSIS - AUTOMATED METHOD 03/25/2024 9:54 AM [facility] Glucose, Urine 250(A) Negative mg/dL LAB URINALYSIS - AUTOMATED METHOD 03/25/2024 9:54 AM [facility] Ketones, Urine Negative Negative mg/dL LAB URINALYSIS - AUTOMATED METHOD 03/25/2024 9:54 AM [facility] Urobilinogen , Urine 0.2 0.2 - 1.0 mg/dL LAB URINALYSIS - AUTOMATED METHOD 03/25/2024 9:54 AM [facility] Bilirubin, Urine Negative Negative LAB URINALYSIS - AUTOMATED METHOD 03/25/2024 9:54 AM [facility] Blood, Urine Moderate(A) Negative LAB URINALYSIS - AUTOMATED METHOD 03/25/2024 9:54 AM [facility] RBC, Urine 10(H) 0 - 4 /HPF 03/25/2024 9:54 AM [facility] WBC, Urine 80(H) 0 - 4 /HPF 03/25/2024 9:54 AM [facility] Squamous Epithelial, Urine 100(H) 0 - 60 /LPF 03/25/2024 9:54 AM [facility] Crystals, Urine Moderate Amorphous Urate crystals. /LPF 03/25/2024 9:54 AM [facility] Bacteria, Urine Moderate(A) Negative /HPF 03/25/2024 9:54 AM [facility] Urine Urine specimen obtained by clean catch procedure / Unknown Non-blood Collection / Unknown 03/25/2024 8:26 AM EST 03/25/2024 8:54 AM EST us Noman Conteh MD LAB URINE ORDERABLES Monse l Result Performing Organization Address [facility]/ZIP Co de Phone Number [facility] [address] [place] [address], * Lindsey urine culture tube (03/25/2024 8:26 AM EST) [facility] Extra Tube Hold for add-ons. 03/25/2024 10:01 AM EST [facility] Comment:Auto resulted. Urine Urine specimen obtained by clean catch procedure / Unknown Non-blood Collection / Unknown 03/25/2024 8:26 AM EST 03/25/2024 8:54 AM EST Noman Conteh MD LAB URINE ORDERABLES Monse l Result Performing Organization Address [facility] Co de Phone Number [facility] [address] [place] [address], [place] [phone] * Culture urine (03/25/2024 8:26 AM EST) [facility] Culture, Urine No growth 03/26/2024 10:25 AM EST [facility] Urine Urine specimen obtained by clean catch procedure / Unknown Non-blood Collection / Unknown 03/25/2024 8:26 AM EST 03/25/2024 9:54 AM EST Noman Conteh MD LAB MICROBIOLOGY - GENERA L ORDERABLES Final Result Performing Organization Address City/[facility]/ZIP Co de Phone Number [facility] [address] [place] [address], [place] [phone] * Hepatitis B surface antigen with reflex to confirmation (03/25/2024 8:17 AM EST) [facility] Hepatitis B Surface Ag Negative Negative LAB CHEMISTRY METHOD 03/25/2024 12:29 PM EST [facility] Blood Venous blood specimen / Unknown Venipuncture / Unknown 03/25/2024 8:17 AM EST 03/25/2024 8:57 AM EST [facility] - 03/25/2024 12:29 PM EST Over the counter supplements containing high doses of biotin may interfere with this assay. ??If interference is suspected, patients shoud be retested after refraining from biotin supplements for 72 hours. Noman Conteh MD LAB BLOOD ORDERABLES Monse l Result Performing Organization Address [facility] Co de Phone Number [facility] [address] [place] [address], [place] [phone] * Hepatitis B surface antibody quantitative (03/25/2024 8:17 AM EST) Pathologist [facility] Hepatitis B Surface Ab Negative Negative LAB CHEMISTRY METHOD 03/25/2024 12:18 PM EST [facility] Hepatitis B Surface Ab Quantitative 7.1 mIU/mL LAB CHEMISTRY METHOD 03/25/2024 12:18 PM EST [facility] Blood Venous blood specimen / Unknown Venipuncture / Unknown 03/25/2024 8:17 AM EST 03/25/2024 8:57 AM EST [facility] - 03/25/2024 12:18 PM EST >=10 mIU/mL is considered to be consistent with immunity. Noman Conteh MD LAB BLOOD ORDERABLES Monse l Result Performing Organization Address [facility]/ZIP Co de Phone Number [facility] [address] [place] [address], [place] [phone] * (ABNORMAL) Venous blood gas (03/25/2024 8:17 AM EST) pH, [place] 7.12(LL) 7.32 - 7.42 pH 03/25/2024 9:04 AM EST [facility] pCO2, [place] 48 41 - 51 mmHg 03/25/2024 9:04 AM [facility] pO2, [place] 54(H) 25 - 40 mmHg 03/25/2024 9:04 AM [facility] HCO3, Venous 14.2(L) 22.0 - 26.0 mmol/L 03/25/2024 9:04 AM [facility] O2 Sat, [place] 82.3 % 03/25/2024 9:04 AM [facility] Base Excess, [place] -13.3(L) -2.0 - 2.0 mmol/L 03/25/2024 9:04 AM [facility] Blood Venous blood specimen / Unknown Venipuncture / Unknown 03/25/2024 8:17 AM EST 03/25/2024 8:56 AM EST Noman Conteh MD LAB BLOOD ORDERABLES Monse l Result Performing Organization Address City/[facility]/ZIP Co de Phone Number [facility] [address] [place] [address], [place] [phone] * Ammonia (03/25/2024 8:17 AM EST) [facility] Ammonia 20 11 - 35 mcmol/L LAB CHEMISTRY METHOD 03/25/2024 9:17 AM EST [facility] Blood Venous blood specimen / Unknown Venipuncture / Unknown 03/25/2024 8:17 AM EST 03/25/2024 8:57 AM EST Noman Conteh MD LAB BLOOD ORDERABLES Monse l Result [facility] [address] [place] [address], [place] [phone] * ECG 12 lead (03/25/2024 7:58 AM EST) [facility] Ventricular Rate ECG 70 BPM GEMUSE Atrial Rate 70 BPM GEMUSE P-R Interval 174 ms GEMUSE QRS Duration 98 ms GEMUSE Q-T Interval 410 ms GEMUSE QTc 442 ms GEMUSE P Wave [place] 3 degrees GEMUSE R [place] 6 degrees GEMUSE T [place] 87 degrees GEMUSE ECG Interpretation Normal sinus rhythm Poor R wave progression When compared with ECG of 10-AUG-2020 02:25, No significant change was found Confirmed by Meena MACDONALD YUFENG ([id number]) on 03/25/2024 9:18:31 AM GEMUSE 03/25/2024 7:58 AM EST 03/25/2024 9:18 AM EST us Noman Conteh MD ECG ORDERABLES Final Res ult GEMUSE * XR Chest 1 View (03/25/2024 7:46 AM EST) Anatomical Region Laterality Modality Body Radiographic Fawn ging 03/25/2024 8:45 AM EST Impressions 03/25/2024 8:46 AM EST Small right pleural effusion with underlying atelectasis and/or infiltrate. The left lung remains clear. Cardiomegaly, new since 08/10/2020. Code 45345 -------- FINAL REPORT -------- Dictated By: Daren Sol Dictated Date: 03/25/2024 08:45 ET Assigned Physician: Daren Sol Reviewed and Electronically Signed By: Daren Sol Signed Date: 03/25/2024 08:46 ET Workstation ID: [id number] Transcribed By: Self Edit Transcribed Date: 03/25/2024 [...] lung remains clear. Cardiomegaly, new since08/10/2020. Code 26616 -------- FINAL REPORT -------- Dictated By: Daren Sol Dictated Date: 03/25/2024 08:45 ET Assigned Physician: Daren Sol Reviewed and Electronically Signed By: Daren Sol Signed Date: 03/25/2024 08:46 ET Workstation ID: [id number] Transcribed By: Self Edit Transcribed Date: 03/25/2024 08:45 ET Noman Conteh MD IMG XR PROCEDURES Final R esult * ECG-Annotated (03/25/2024) us Provider Onbase ECG ORDERABLES Final Result from Last 3 Months Insurance MEDICARE ADVANTAGE GENERIC [employer] MEDICARE MEDICAID - [place] Advance Directives Documents on File Type Date Recorded Patient Pictures Editor Expl anation Advance Directives and Living Will 03/29/2024 1:25 PM PROXY Advance Directives and Living Will 03/29/2024 9:18 AM Nestor Jamialloyd Frank Health Care Proxy Advance Directives and Living [...] Relationship Healthcare Agent Relationshi p Communication Nestor Marie Health Care Agent Beau Frank [facility] re Agent Care Teams Inspector Barrel Relationship Specialty Start Date End Date Cass Turcios MD [address] [place] [address] [address] [place] [address] PCP - General Geriatric Medicine 04/02/24
--- OUTSIDE RECORDS SUMMARY | 2024-05-30 17:03 | XMS_ITS | Encounter Summary ---
Author Organization [facility], Address [address] [place] [address] Phone Care Team Providers Care Import Specialist Name Role Phone Jade Lewis MD Primary Care Provider [phone] Reason for Visit * Reason Comments Med Refill Encounter Details Date Type Department Care Team (Late st Contact Info) Description 09/17/2022 Refill [facility] [address] [place] [phone] Malcolm Taylor MD [address] [place] [address] [place] [phone] Social History Tobacco Use Types Packs/Day Years [...] on filedocumented in this encounter Care Teams Import Specialist Relationship Specialty Start Date End Date Jade Lewis MD [address] [place] [address] PCP - General Internal Medicine 04/25/22 documented as of this encounter
--- OUTSIDE RECORDS SUMMARY | 2024-05-30 17:03 | XMS_ITS | Encounter Summary ---
Author Organization [facility], Address [address] [place] [address] Phone Care Team Providers Care Deposition Operator Name Role Phone Jade Lewis MD Primary Care Provider [phone] Encounter Details Date Type Department Care Team (Late st Contact Info) Description 05/01/2024 Orders Only [facility] [address] [place] [address] Car Mcdonald MD [address] [place] [address] [place] [address] Social History Tobacco Use Types Packs/Day Years [...] Date/Time Associated Diagnosis Comments HD KINETICS Routine 05/01/2024 POST CHEMISTRY Routine 05/01/2024 HEMATOLOGY Routine 05/01/2024 CHEMISTRY Routine 05/01/2024 [facility] RESULTS Routine 05/01/2024 documented in this encounter Results * [facility] Lab Results (05/01/2024) eKt/V (Tattersall) 0.87 [facility] eKdrt/V 0.85 [facility] eNPCR 1.07 [facility] spKt/V Gotch 1.12 [facility] Center PCR 74.63 [facility] nPCR_HD 1.23 [facility] eKt/V Gotch 0.85 [facility] spKt/V (Daugirdas II) 1.10 [facility] WSTDKT/V 2.0 [facility] 05/01/2024 05/01/2024 [facility] Ordering Provider LAB BLOOD ORDERABLES Final Result [facility] Contact Performing lab Unknown, [place] * (ABNORMAL) HD KINETICS (05/01/2024) Pathologist [facility] % Urea Reduction 59(L) 65 - 80 % [facility] 05/01/2024 05/02/2024 8:3 0 AM EST Narrative Resulting Agency Comment Specimen source: Plasma Car Mcdonald MD LAB BLOOD ORDERABLES Final Re sult [facility] See order comments or contact performing lab Unknown, [place] * (ABNORMAL) POST CHEMISTRY (05/01/2024) Pathologist [facility] BUN Post Dialysis 36(H) 6 - 19 mg/dL [facility] 05/01/2024 05/02/2024 8:3 0 AM EST Narrative [facility] - 05/02/2024 Unless otherwise specified, test(s) performed at: [email or web address], [address] [place], [place] [id number] SENIOUR INSIGHT MANAGER: Homero Garcia M.D. For any questions, please call customer service at FREQUENCY:OTHER Resulting Agency Comment Specimen source: Plasma Car Mcdonald MD LAB BLOOD ORDERABLES Final Re sult Performing Organization Address [facility] de Phone Number [facility] See order comments or contact performing lab Unknown, [place] * (ABNORMAL) [facility] (05/01/2024) BUN 88(H) 6 - 19 mg/dL [facility] 05/01/2024 05/02/2024 8:5 4 AM EST Narrative [facility] - 05/02/2024 Unless otherwise specified, test(s) performed at: [email or web address], [address] [place], [place] [id number] SENIOUR INSIGHT MANAGER: Homero Garcia M.D. For any questions, please call customer service at FREQUENCY:OTHER Resulting Agency Comment Specimen source: Serum Car Mcdonald MD LAB BLOOD ORDERABLES Final Re sult Performing Organization Address [facility] de Phone Number [facility] See order comments or contact performing lab Unknown, [place] * (ABNORMAL) HEMATOLOGY (05/01/2024) Hemoglobin 9.1(L) 14.0 - 18.0 g/dL [facility] Hemoglobin x 3 27.3(L) 42.0 - 54.0 % [facility] 05/01/2024 05/02/2024 8:3 7 AM EST Narrative [facility] - 05/02/2024 Unless otherwise specified, test(s) performed at: [email or web address], [address] [place] [id number] SENIOUR INSIGHT MANAGER: Homero Garcia M.D. For any questions, please call customer service at FREQUENCY:OTHER Resulting Agency Comment Specimen source: Blood Car Mcdonald MD LAB BLOOD ORDERABLES Final Re sult Performing Organization Address [facility] de Phone Number [facility] See order comments or contact performing lab Unknown, [place] documented in this encounter Visit Diagnoses Not on filedocumented in this encounter Care Teams Deposition Operator Relationship Specialty Start Date End Date Jade Lewis MD [address] [place] [address] PCP - General Internal Medicine 04/25/22 documented as of this encounter
--- OUTSIDE RECORDS SUMMARY | 2024-05-30 17:03 | XMS_ITS | Encounter Summary ---
Author Organization [facility] Address [address] [place] [address] Care Team Providers Care Medical Specialist Name Role Phone Cass Turcios MD Primary Care Provider [phone] Encounter Details Date Type Department Care Team (Late st Contact Info) Description 05/30/2024 Lab Requisition [facility] [address] [facility] [place] [address] Laurence Florence MD [address] [place] [address] Chronic respiratory failure with hypoxia (CMS/HCC); Encounter for orthopedic aftercare following surgical amputation; Encounter for surgical aftercare following surgery on the circulatory system; Peripheral vascular disease, unspecified (CMS/HCC) Social History Tobacco Use Types Packs/Day [...] your loved ones. For example, director child abuse therapy or elderly care for an older adult? [...] as of this encounter Plan of Treatment Pending Results Name Type Priority Associated Diagnoses Date /Time Culture blood Microbiology Routine Chronic respiratory failure with hypoxia Encounter for orthopedic aftercare following surgical amputation Encounter for surgical aftercare following surgery on the circulatory system Peripheral vascular disease, unspecified (CMS/HCC) 05/30/2024 7:41 AM EDT documented as of this encounter Procedures Procedure Name Priority Date/Time Associated Diagnosis Comments CULTURE BLOOD Routine 05/30/2024 7:41 AM EDT Chronic respiratory failure with hypoxia Encounter for orthopedic aftercare following surgical amputation Encounter for surgical aftercare following surgery on the circulatory system Peripheral vascular disease, unspecified (CMS/HCC) documented in this encounter Visit Diagnoses Diagnosis Chronic respiratory failure with hypoxia Encounter for orthopedic aftercare following surgical amputation Encounter for surgical aftercare following surgery on the circulatory system Peripheral vascular disease, unspecified (CMS/HCC) Peripheral vascular disease, unspecified documented in this encounter Care Teams Medical Specialist Relationship Specialty Start Date End Date Cass Turcios MD [address] [place] [address] [address] [place] [address] PCP - General Geriatric Medicine 04/02/24 documented as of this encounter
--- OUTSIDE RECORDS SUMMARY | 2024-05-30 17:03 | XMS_ITS | Encounter Summary ---
Author Organization [facility] Address [address] [place] [address] Care Team Providers Care Arc Trimmer Name Role Phone Lainey Cody [facility] Primary Care Provider [phone] Encounter Details Date Type Department Care Team (Late st Contact Info) Description 05/03/2024 Interim Notes Caring [facility] [address] [place] [address] Ninfa Stiles FNP [address] [place] [address] Type 2 diabetes mellitus with diabetic nephropathy, unspecified whether ocean transportation intermediary insulin use ([facility]-CMS) (Primary Dx); Bilateral leg weakness; Chronic bilateral low back pain with bilateral sciatica; Chronic bronchitis, unspecified chronic bronchitis type (HCC-CMS); History of left below knee amputation ([facility]-CMS) Social History Tobacco Use Types Packs/Day Years [...] as of this encounter Progress Notes * ESTUARDO Leary - 05/03/2024 3:00 PM ESTAddended by: NINFA STILES on: 05/03/2024 03:00 PM Modules accepted: Orders * ESTUARDO Leary - 05/03/2024 2:48 PM EST Requested medical supplies Rx issued. Will send to [facility]. -Orthopedic hospital bed w/half rails -[place] -Standard height wheel chair with seat cushion. documented in this encounter Plan of Treatment Not on file documented as of this encounter Visit Diagnoses Diagnosis Type 2 diabetes mellitus with diabetic nephropathy, unspecified whether ocean transportation intermediary insulin use (HCC-CMS)- Primary Bilateral leg weakness Other musculoskeletal symptoms referable to limbs Chronic bilateral low back pain with bilateral sciatica Chronic bronchitis, unspecified chronic bronchitis type (HCC-CMS) History of left below knee amputation (HCC-CMS) Lower limb amputation, below knee documented in this encounter Additional Health Concerns Assessment Noted Time PHQ-9 Depression Total Score: 0 03/14/19 25 9:51 AM PST documented as of this encounter Care Teams Arc Trimmer Relationship Specialty Start Date End Date Lainey Cody FNP [address] [place] [address] PCP - General Internal Medicine 12/11/23 documented as of this encounter
--- OUTSIDE RECORDS SUMMARY | 2024-05-30 17:03 | XMS_ITS | Encounter Summary ---
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 For example, child neurologist or elderly care for an older adult? [...] Procedure Name Priority Date/Time Associated Diagnosis Comments CBC WITH AUTO DIFFERENTIAL Routine 05/24/2024 5:56 AM EDT Chronic combined systolic (congestive) and diastolic (congestive) heart failure Type 2 diabetes mellitus without complications End stage renal disease ([facility]) CBC AND DIFFERENTIAL Routine 05/24/2024 5:56 AM EDT Chronic combined systolic (congestive) and diastolic (congestive) heart failure Type 2 diabetes mellitus without complications End stage renal disease (CMS/HCC) BASIC METABOLIC PANEL Routine 05/24/2024 5:56 AM EDT Chronic combined systolic (congestive) and diastolic (congestive) heart failure Type 2 diabetes mellitus without complications End stage renal disease (CMS/HCC) documented in this encounter Results * (ABNORMAL) CBC auto differential (05/24/2024 5:56 AM EDT) [facility] WBC 9.3 4.8 - 10.8 K/mcL LAB HEMETOLOGY METHOD 05/24/2024 9:31 AM [facility] RBC 3.40(L) 4.50 - 5.50 M/mcL LAB HEMETOLOGY METHOD 05/24/2024 9:31 AM [facility] Hemoglobin 8.5(L) 13.5 - 17.5 g/dL LAB HEMETOLOGY METHOD 05/24/2024 9:31 AM [facility] Hematocrit 28.2(L) 42.0 - 54.0 % LAB HEMETOLOGY METHOD 05/24/2024 9:31 AM [facility] MCV 82.0 79.0 - 98.0 FL LAB HEMETOLOGY METHOD 05/24/2024 9:31 AM [facility] MCH 24.7(L) 27.0 - 32.0 pcg LAB HEMETOLOGY METHOD 05/24/2024 9:31 AM [facility] MCHC 30.1(L) 32.0 - 37.0 g/dL LAB HEMETOLOGY METHOD 05/24/2024 9:31 AM [facility] RDW 17.8(H) 11.0 - 15.0 % LAB HEMETOLOGY METHOD 05/24/2024 9:31 AM [facility] Platelets 335 130 - 400 K/mcL LAB HEMETOLOGY METHOD 05/24/2024 9:31 AM [facility] MPV 10.5 7.0 - 11.0 FL LAB HEMETOLOGY METHOD 05/24/2024 9:31 AM [facility] NRBC 0.0 <1.0 % LAB HEMETOLOGY METHOD 05/24/2024 9:31 AM [facility] NRBC Absolute 0.00 <0.10 K/mcL LAB HEMETOLOGY METHOD 05/24/2024 9:31 AM [facility] Neutrophils Relative 67.5 % LAB HEMETOLOGY METHOD 05/24/2024 9:31 AM [facility] Lymphocytes Relative 16.4 % LAB HEMETOLOGY METHOD 05/24/2024 9:31 AM [facility] Monocytes Relative 10.6 % LAB HEMETOLOGY METHOD 05/24/2024 9:31 AM [facility] Eosinophils Relative 4.5 % LAB HEMETOLOGY METHOD 05/24/2024 9:31 AM [facility] Basophils Relative 0.4 % LAB HEMETOLOGY METHOD 05/24/2024 9:31 AM [facility] Immature Granulocytes Relative 0.6 % LAB HEMETOLOGY METHOD 05/24/2024 9:31 AM [facility] Neutrophils Absolute 6.24 1.50 - 7.00 K/mcL LAB HEMETOLOGY METHOD 05/24/2024 9:31 AM [facility] Lymphocytes Absolute 1.52 1.00 - 5.00 K/mcL LAB HEMETOLOGY METHOD 05/24/2024 9:31 AM [facility] Monocytes Absolute 0.98 0.20 - 1.00 K/mcL LAB HEMETOLOGY METHOD 05/24/2024 9:31 AM [facility] Eosinophils Absolute 0.42 0.00 - 0.50 K/[facility] LAB HEMETOLOGY METHOD 05/24/2024 9:31 AM EDT [facility] Basophils Absolute 0.04 0.00 - 0.20 K/[facility] LAB HEMETOLOGY METHOD 05/24/2024 9:31 AM EDT [facility] Immature Granulocytes Absolute 0.06(H) 0.00 - 0.03 K/[facility] LAB HEMETOLOGY METHOD 05/24/2024 9:31 AM EDT [facility] Blood Venous blood specimen / Unknown Venipuncture / Unknown 05/24/2024 5:56 AM EDT 05/24/2024 8:41 AM EDT us Laurence Florence MD LAB BLOOD ORDERABLES Final Resu lt [facility] [address] [place] [address], * (ABNORMAL) Basic metabolic panel (05/24/2024 5:56 AM EDT) Sodium 134 133 - 145 mmol/L LAB CHEMISTRY METHOD 05/24/2024 9:53 AM [facility] Potassium 4.8 3.5 - 5.5 mmol/L LAB CHEMISTRY METHOD 05/24/2024 9:53 AM [facility] Chloride 100 96 - 110 mmol/L LAB CHEMISTRY METHOD 05/24/2024 9:53 AM [facility] CO2 26 21 - 32 mmol/L LAB CHEMISTRY METHOD 05/24/2024 9:53 AM [facility] Anion Gap 8 3 - 11 LAB CHEMISTRY METHOD 05/24/2024 9:53 AM [facility] Glucose 131(H) 70 - 100 mg/dL LAB CHEMISTRY METHOD 05/24/2024 9:53 AM EDT [facility] BUN 67(H) 5 - 25 mg/dL LAB CHEMISTRY METHOD 05/24/2024 9:53 AM EDT [facility] Creatinine 7.92(H) 0.70 - 1.30 mg/dL LAB CHEMISTRY METHOD 05/24/2024 9:53 AM EDT [facility] eGFR 7(L) >=60 mL/min/1. 73m2 LAB CHEMISTRY METHOD 05/24/2024 9:53 AM EDT [facility] Comment:Calculation based on the??Chronic Kidney Disease Epidemiology Collaboration (CKD-EPI) equation refit??without adjustment for race. BUN/Creatinine Ratio 8.5 LAB CHEMISTRY METHOD 05/24/2024 9:53 AM EDT [facility] Calcium 8.6 8.5 - 10.5 mg/dL LAB CHEMISTRY METHOD 05/24/2024 9:53 AM EDT [facility] Blood Venous blood specimen / Unknown Venipuncture / Unknown 05/24/2024 5:56 AM EDT 05/24/2024 8:41 AM EDT us Laurence Florence MD LAB BLOOD ORDERABLES Final Resu lt [facility] [address] [place] [address], documented in this encounter Visit Diagnoses Diagnosis Chronic combined systolic (congestive) and diastolic (congestive) heart failure Type 2 diabetes mellitus without complications End stage renal disease (CMS/HCC) End stage renal disease documented in this encounter Care Teams Fur Sewer Relationship Specialty Start Date End Date Cass Turcios MD [address] [place] [address] [address] [place] [address] PCP - General Geriatric Medicine 04/02/24 documented as of this encounter
--- OUTSIDE RECORDS SUMMARY | 2024-05-30 17:03 | XMS_ITS | Clinical Summary ---
Author Organization [facility] Address [address] [facility] [address] [place] [address] Phone Care Team Providers Care Foam Cutting Supervisor Name Role Phone Jade Lewis MD Primary Care Provider [phone] Allergies Active Allergy Reactions Criticality Noted Date [...] FOR WHEEZING 1 Active ergocalciferol 1.25 MG (35930 UT) capsule Take 1 capsule (50,000 Units total) by mouth 1 (one) time per week 4 capsule 5 1 Active cetirizine (ZyrTEC) 10 MG tablet Take 10 mg by mouth 1 (one) time each day Active Fluticasone-Salm eterol 100-50 MCG/ACT aerosol powder [facility] - [place], [place] - [id number] [place] [phone] 60.00 Each 5 30 INHALE 1 PUFF [...] mouth daily. Prescribed by Dr. Car Mcdonald (emt intermediate). 2 Active aspirin (ST ANITRA) 81 MG [...] asthma 03/31/2022 Overview (09/15/2022): 08/19/21 Eval at [facility]. Increase Advair to 100/50 F/u 6 months. 05/24/22 Eval at [facility], Dr Funez. Recommends Trelegy once daily. Plan for sleep study to assess need for CPAP. 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 Acute embolism and thrombosis of left internal j ugular vein 12/21/2020 End stage renal failure on dialysis 11/19/2020 Overview (10/05/2021): [facility] Hypocalcemia 11/13/2020 Angina pectoris 11/09/2020 Coagulation defect 11/09/2020 Headache 11/09/2020 Type 2 diabetes mellitus with diabetic nephropat hy 11/09/2020 Edema 09/28/2020 Iron deficiency anemia 12/24/2019 Chronic kidney disease stage 4 02/19/2019 Anemia in chronic kidney disease 02/19/2019 History of colonoscopy 03/30/2016 Overview (01/26/2021): Approximately 2010 in [place] per Pt 11/24/20 Eval at [facility] GI, recommend colonoscopy. Resolved Problems Problem [...] diabetes mellitus 06/12/2015 Overview (01/26/2021): Followed by [facility] Endocrinology. Last visit 06/23/15, HbA1c = 11.1%. Has diabetic nephropathy, retinopathy, and peripheral neuropathy. Switched to Novolin 70/30. Taking 23 units TID with meals, may titrate up/down depending on BG readings over the next few days. They are trying to submit PA for Lyrica. 04/27/16 F/u with Estefani Kaur, at [facility] Endocrine. Titrate Novolog 70/30 to 22 units with breakfast, 30 units with dinner. If no improvement or if ongoing hypoglycemia will consider switchign to Levemir and Humalog; F/u 3 months 11/03/20 F/u [facility] Endocrine. A1c > 12% Continue Lanuts 52 and Humalog 4-8 untsi with meals. Consider using NPH during peritoneal dialysis Encounters Date Type Department Care Team Description 05/01/2024 Orders Only [facility] [address] [address] Car Mcdonald MD 2024 Orders Only [facility] [address] [address] Car Mcdonald MD 2024 Treatment [facility] [address] [place] [address] Arely Hernández APRN 04/24/2024 Treatment [facility] [address] [place] [address] Malcolm Taylor MD End stage renal disease; Dependence on renal dialysis 04/24/2024 Orders Only [facility] [address] [address] Car Mcdonald MD 04/22/2024 Orders Only [facility] [address] [address] Car Mcdonald MD 04/19/2024 Orders Only [facility] [address] [address] Car Mcdonald MD 04/19/2024 Treatment [facility] [address] [place] [address] Arely Hernández, PHYSICAL CHEMISTRY PROFESSOR 04/05/2024 Treatment [facility] [address] [place] [address] Arely Hernández, PHYSICAL CHEMISTRY PROFESSOR 04/03/2024 Orders Only [facility] [address] [address] Car Mcdonald MD 04/01/2024 Treatment [facility] [address] [place] [address] Malcolm Taylor MD 03/29/2024 Orders Only [facility] [address] [address] Car Mcdonald MD 03/15/2024 Treatment [facility] [address] [place] [address] Malcolm Taylor MD 03/13/2024 Orders Only [facility] [address] [address] Car Mcdonald MD 03/08/2024 Orders Only [facility] [address] [address] Car Mcdonald MD 03/01/2024 Treatment [facility] [address] [place] [address] Malcolm Taylor MD 03/01/2024 Orders Only [facility] [address] [place] [address] Car Mcdonald MD from Last 3 Months [...] at 66 Diabetes Mother Heart disease Mother [place] Stroke Mother grandfather Hypertension Sibling 1 Kidney [...] Name Priority Date/Time Associated Diagnosis Comments [facility] RESULTS Routine 05/01/2024 HD KINETICS Routine 05/01/2024 POST CHEMISTRY Routine 05/01/2024 CHEMISTRY Routine 05/01/2024 HEMATOLOGY Routine 05/01/2024 [facility] RESULTS Routine 2024 HD KINETICS Routine 2024 CHEMISTRY Routine 2024 POST CHEMISTRY Routine 2024 HEMATOLOGY Routine 04/24/2024 [facility] RESULTS Routine 04/22/2024 HD KINETICS Routine 04/22/2024 CHEMISTRY Routine 04/22/2024 POST CHEMISTRY Routine 04/22/2024 CHEMISTRY Routine 04/19/2024 IMMUNO CHEMISTRY Routine 04/19/2024 CHEMISTRY Routine 04/19/2024 HEMATOLOGY Routine 04/19/2024 HEMATOLOGY Routine 04/03/2024 HEMATOLOGY Routine 03/29/2024 HD KINETICS Routine 03/13/2024 CHEMISTRY Routine 03/13/2024 POST CHEMISTRY Routine 03/13/2024 HEMATOLOGY Routine 03/13/2024 [facility] RESULTS Routine 03/08/2024 HD KINETICS Routine 03/08/2024 POST CHEMISTRY Routine 03/08/2024 IMMUNO CHEMISTRY Routine 03/08/2024 CHEMISTRY Routine 03/08/2024 SPECIAL CHEMISTRY Routine 03/08/2024 HEMATOLOGY Routine 03/08/2024 CHEMISTRY Routine 03/08/2024 HEMATOLOGY Routine 03/01/2024 from Last 3 Months Results * (ABNORMAL) HD KINETICS (05/01/2024) Only the most recent of5 resultswithin the time period is included. % Urea Reduction 59(L) 65 - 80 % [facility] 05/01/2024 05/02/2024 8:3 0 AM EST Narrative Resulting Agency Comment Specimen source: Plasma Car Mcdonald MD LAB BLOOD ORDERABLES Final Re sult Performing Organization Address [facility] de Phone Number [facility] See order comments or contact performing lab Unknown, [place] * (ABNORMAL) POST CHEMISTRY (05/01/2024) Only the most recent of5 resultswithin the time period is included. BUN Post Dialysis 36(H) 6 - 19 mg/dL [facility] 05/01/2024 05/02/2024 8:3 0 AM EST Narrative [facility] - 05/02/2024 Unless otherwise specified, test(s) performed at: [facility], [address] [place], [place] [id number] TYPING SECRETARY: Homero Garcia M.D. For any questions, please call customer service at FREQUENCY:OTHER Resulting Agency Comment Specimen source: Plasma Car Mcdonald MD LAB BLOOD ORDERABLES Final [facility] Performing Organization Address [facility] de Phone Number [facility] See order comments or contact performing lab Unknown, [place] * (ABNORMAL) HEMATOLOGY (05/01/2024) Only the most recent of8 resultswithin the time period is included. Hemoglobin 9.1(L) 14.0 - 18.0 g/dL [facility] Hemoglobin x 3 27.3(L) 42.0 - 54.0 % [facility] 05/01/2024 05/02/2024 8:3 7 AM EST Narrative [facility] - 05/02/2024 Unless otherwise specified, test(s) performed at: [facility], [address] [place] [id number] TYPING SECRETARY: Homero Garcia M.D. For any questions, please call customer service at FREQUENCY:OTHER Resulting Agency Comment Specimen source: Blood Car Mcdonald MD LAB BLOOD ORDERABLES Final Re sult Performing Organization Address City/[facility]/ZIP Co de Phone Number [facility] See order comments or contact performing lab Unknown, [place] * (ABNORMAL) [facility] (05/01/2024) Only the most recent of8 resultswithin the time period is included. BUN 88(H) 6 - 19 mg/dL [facility] 05/01/2024 05/02/2024 8:5 4 AM EST Narrative [facility] - 05/02/2024 Unless otherwise specified, test(s) performed at: [facility], [address] [place] [address] TYPING SECRETARY: Homero Garcia M.D. For any questions, please call customer service at FREQUENCY:OTHER Resulting Agency Comment Specimen source: Serum Car Mcdonald MD LAB BLOOD ORDERABLES Final Re sult Performing Organization Address [facility] de Phone Number [facility] See order comments or contact performing lab Unknown, [place] * [facility] Results (05/01/2024) Only the most recent of4 resultswithin the time period is included. eKt/V (Tattersall) 0.87 [facility] eKdrt/V 0.85 [facility] eNPCR 1.07 [facility] spKt/V Gotch 1.12 [facility] ge Center PCR 74.63 [facility] nPCR_HD 1.23 [facility] eKt/V Gotch 0.85 [facility] e Center spKt/V (Daugirdas II) 1.10 [facility] WSTDKT/V 2.0 [facility] 05/01/2024 05/01/2024 [facility] Ordering Provider LAB BLOOD ORDERABLES Final Result Performing Organization Address City/[facility] Co de Phone Number [facility] Contact Performing lab Unknown, [place] * IMMUNO CHEMISTRY (04/19/2024) Only the most recent of2 resultswithin the time period is included. Hep B Surface Ag Negative Negative [facility] 04/19/2024 04/20/2024 12: 30 PM EST Narrative [facility] - 04/20/2024 Unless otherwise specified, test(s) performed at: [place] [address] TYPING SECRETARY: Homero Garcia M.D. For any questions, please call customer service at FREQUENCY:MONTHLY Resulting Agency Comment Specimen source: Serum Car Mcdonald MD LAB BLOOD ORDERABLES Final Re sult Performing Organization Address [facility] de Phone Number [facility] See order comments or contact performing lab Unknown, [place] * (ABNORMAL) SPECIAL CHEMISTRY (03/08/2024) Hemoglobin A1C 7.9(H) 4.8 - 5.9 % [facility] 03/08/2024 03/09/2024 10: 45 AM EST Narrative Resulting Agency Comment Specimen source: Blood Car Mcdonald MD LAB BLOOD BANK TEST ORDERABLE S Final Result Performing Organization Address [facility] de Phone Number [facility] See order comments or contact performing lab Unknown, [place] from Last 3 Months Insurance [place]ICAID [place] [employer] Care Teams Foam Cutting Supervisor Relationship Specialty Start Date End Date Jade Lewis MD [address] [place] [phone] PCP - General Internal Medicine 04/25/22
--- OUTSIDE RECORDS SUMMARY | 2024-05-30 17:03 | XMS_ITS | Encounter Summary ---
Author Organization [facility], Address [address] [place] [address] Phone Care Team Providers Care Trial Consultant Name Role Phone Jade Lewis MD Primary Care Provider + [phone] Reason for Visit * Reason Comments Med Refill Encounter Details Date Type Department Care Team (Late st Contact Info) Description 12/24/2022 Refill [facility] [address] [place] [phone] Car Mcdonald MD [facility] [place] [place] [address] Social History Tobacco Use Types Packs/Day Years [...] on filedocumented in this encounter Care Teams Trial Consultant Relationship Specialty Start Date End Date Jade Lewis MD [address] [place] [address] PCP - General Internal Medicine 04/25/22 documented as of this encounter
--- OUTSIDE RECORDS SUMMARY | 2024-05-30 17:03 | XMS_ITS | Encounter Summary ---
Author Organization [facility] Address [address] [place] [address] Care Team Providers Care Laborer Pullet Farm Name Role Phone Cass Turcios MD Primary Care Provider [phone] Encounter Details Date Type Department Care Team (Late st Contact Info) Description 05/18/2024 Lab Requisition [facility] - Main Lab [address] [facility] [place] [address] Elsy Christina PA [address] [address] Unspecified systolic (congestive) heart failure (CMS/HCC); Type 2 diabetes [...] for your loved ones. For example, child nutrition director or elderly care for an older adult? [...] Diagnosis Comments CBC WITH AUTO DIFFERENTIAL Routine 05/18/2024 7:20 [...] AM EDT Unspecified systolic (congestive) heart failure ([facility]/HCC) Type 2 diabetes mellitus without complications (CMS/HCC) End stage renal disease (CMS/HCC) BASIC METABOLIC PANEL Routine 05/18/2024 7:20 AM EDT Unspecified systolic (congestive) heart failure ([facility]/HCC) Type 2 diabetes mellitus without complications (CMS/HCC) End stage renal disease (CMS/HCC) documented in this encounter Results * (ABNORMAL) CBC auto differential (05/18/2024 7:20 AM EDT) WBC 14.7(H) 4.8 - 10.8 K/mcL LAB HEMETOLOGY METHOD 05/18/2024 10:27 AM [facility] RBC 3.60(L) 4.50 - 5.50 M/mcL LAB HEMETOLOGY METHOD 05/18/2024 10:27 AM [facility] Hemoglobin 8.8(L) 13.5 - 17.5 g/dL LAB HEMETOLOGY METHOD 05/18/2024 10:27 AM [facility] Hematocrit 29.6(L) 42.0 - 54.0 % LAB HEMETOLOGY METHOD 05/18/2024 10:27 AM [facility] MCV 83.1 79.0 - 98.0 FL LAB HEMETOLOGY METHOD 05/18/2024 10:27 AM [facility] MCH 24.7(L) 27.0 - 32.0 pcg LAB HEMETOLOGY METHOD 05/18/2024 10:27 AM [facility] MCHC 29.7(L) 32.0 - 37.0 g/dL LAB HEMETOLOGY METHOD 05/18/2024 10:27 AM [facility] RDW 18.3(H) 11.0 - 15.0 % LAB HEMETOLOGY METHOD 05/18/2024 10:27 AM [facility] Platelets 433(H) 130 - 400 K/mcL LAB HEMETOLOGY METHOD 05/18/2024 10:27 AM [facility] MPV 10.5 7.0 - 11.0 FL LAB HEMETOLOGY METHOD 05/18/2024 10:27 AM [facility] NRBC 0.0 <1.0 % LAB HEMETOLOGY METHOD 05/18/2024 10:27 AM [facility] NRBC Absolute 0.00 <0.10 K/mcL LAB HEMETOLOGY METHOD 05/18/2024 10:27 AM [facility] Neutrophils Relative 75.0 % LAB HEMETOLOGY METHOD 05/18/2024 10:27 AM [facility] Lymphocytes Relative 15.7 % LAB HEMETOLOGY METHOD 05/18/2024 10:27 AM [facility] Monocytes Relative 5.9 % LAB HEMETOLOGY METHOD 05/18/2024 10:27 AM [facility] Eosinophils Relative 2.5 % LAB HEMETOLOGY METHOD 05/18/2024 10:27 AM [facility] Basophils Relative 0.3 % LAB HEMETOLOGY METHOD 05/18/2024 10:27 AM [facility] Immature Granulocytes Relative 0.6 % LAB HEMETOLOGY METHOD 05/18/2024 10:27 AM [facility] Neutrophils Absolute 11.02(H) 1.50 - 7.00 K/mcL LAB HEMETOLOGY METHOD 05/18/2024 10:27 AM [facility] Lymphocytes Absolute 2.30 1.00 - 5.00 K/[facility] LAB HEMETOLOGY METHOD 05/18/2024 10:27 AM EDT [facility] Monocytes Absolute 0.87 0.20 - 1.00 K/[facility] LAB HEMETOLOGY METHOD 05/18/2024 10:27 AM EDT [facility] Eosinophils Absolute 0.37 0.00 - 0.50 K/[facility] LAB HEMETOLOGY METHOD 05/18/2024 10:27 AM EDT [facility] Basophils Absolute 0.04 0.00 - 0.20 K/[facility] LAB HEMETOLOGY METHOD 05/18/2024 10:27 AM EDT [facility] Immature Granulocytes Absolute 0.09(H) 0.00 - 0.03 K/[facility] LAB HEMETOLOGY METHOD 05/18/2024 10:27 AM EDT [facility] Blood Venous blood specimen / Unknown Venipuncture / Unknown 05/18/2024 7:20 AM EDT 05/18/2024 9:58 AM EDT us Elsy MOTNERO LAB BLOOD ORDERABLES Final Re sult [facility] LAB [address] [place] [address], * (ABNORMAL) Hemoglobin A1c (05/18/2024 7:20 AM EDT) Hemoglobin A1C 7.2(H) <6.5 % LAB CHEMISTRY METHOD 05/19/2024 12:06 PM EDT [facility] Mean Bld Glu Estim. 160 mg/dL LAB CHEMISTRY METHOD 05/19/2024 12:06 PM EDT [facility] Blood Venous blood specimen / Unknown Venipuncture / Unknown 05/18/2024 7:20 AM EDT 05/18/2024 9:58 AM EDT us Elsy MONTERO LAB BLOOD ORDERABLES Final Re sult [facility] [address] [place] [address], * (ABNORMAL) Basic metabolic panel (05/18/2024 7:20 AM EDT) Sodium 136 133 - 145 mmol/L LAB CHEMISTRY METHOD 05/18/2024 10:41 AM [facility] Potassium 4.8 3.5 - 5.5 mmol/L LAB CHEMISTRY METHOD 05/18/2024 10:41 AM [facility] Chloride 100 96 - 110 mmol/L LAB CHEMISTRY METHOD 05/18/2024 10:41 AM [facility] CO2 28 21 - 32 mmol/L LAB CHEMISTRY METHOD 05/18/2024 10:41 AM [facility] Anion Gap 8 3 - 11 LAB CHEMISTRY METHOD 05/18/2024 10:41 AM [facility] Glucose 77 70 - 100 mg/dL LAB CHEMISTRY METHOD 05/18/2024 10:41 AM [facility] BUN 43(H) 5 - 25 mg/dL LAB CHEMISTRY METHOD 05/18/2024 10:41 AM [facility] Creatinine 6.49(H) 0.70 - 1.30 mg/dL LAB CHEMISTRY METHOD 05/18/2024 10:41 AM [facility] eGFR 9(L) >=60 mL/min/1. 73m2 LAB CHEMISTRY METHOD 05/18/2024 10:41 AM [facility] LAB Comment:Calculation based on the??Chronic Kidney Disease Epidemiology Collaboration (CKD-EPI) equation refit??without adjustment for race. BUN/Creatinine Ratio 6.6 LAB CHEMISTRY METHOD 05/18/2024 10:41 AM [facility] Calcium 9.0 8.5 - 10.5 mg/dL LAB CHEMISTRY METHOD 05/18/2024 10:41 AM EDT [facility] Blood Venous blood specimen / Unknown Venipuncture / Unknown 05/18/2024 7:20 AM EDT 05/18/2024 9:58 AM EDT us Elsy MONTERO LAB BLOOD ORDERABLES Final Re sult [facility] [address] [place] [address], documented in this encounter Visit Diagnoses Diagnosis Unspecified systolic (congestive) heart failure (CMS/HCC) Type 2 diabetes mellitus without complications End stage renal disease (CMS/HCC) End stage renal disease documented in this encounter Care Teams Laborer [employer] Relationship Specialty Start Date End Date Cass Turcios MD [address] [place] [address] [address] [place] [address] PCP - General Geriatric Medicine 04/02/24 documented as of this encounter
--- OUTSIDE RECORDS SUMMARY | 2024-05-30 17:03 | XMS_ITS | Encounter Summary ---
Author Organization [facility] Address [address] [place] [address] Care Team Providers Care Wood Boatbuilder Name Role Phone Cass Turcios MD Primary Care Provider [phone] Encounter Details Date Type Department Care Team (Late st Contact Info) Description 05/30/2024 Lab Requisition [facility] - Main Lab [address] [facility] [place] [address] Laurence Florence MD [address] [place] [id number] Chronic respiratory failure with hypoxia (CMS/HCC); Encounter [...] care for your loved ones. For example, children's tutor nursery or elderly care for an older adult? [...] system Peripheral vascular disease, unspecified (CMS/HCC) 05/30/2024 7:36 AM EDT documented as of this encounter Procedures Procedure Name Priority Date/Time Associated Diagnosis Comments CULTURE BLOOD Routine 05/30/2024 7:36 AM EDT [...] disease, unspecified (CMS/HCC) documented in this encounter Results * Lactate (05/30/2024 7:36 AM EDT) Lactate 0.6 0.4 - 2.0 mmol/L LAB CHEMISTRY METHOD 05/30/2024 8:47 AM EDT [facility] Blood Venous blood specimen / Unknown Venipuncture / Unknown 05/30/2024 7:36 AM EDT 05/30/2024 8:11 AM EDT Laurence Florence MD LAB BLOOD ORDERABLES Final Resu lt Performing Organization Address City/[facility]/ZIP Co de Phone Number [facility] [address] [place] [address], [place] [phone] * (ABNORMAL) C-reactive protein (05/30/2024 7:36 AM EDT) C-Reactive Protein 11.60(H) <=0.50 mg/dL LAB CHEMISTRY METHOD 05/30/2024 8:51 AM EDT [facility] Blood Venous blood specimen / Unknown Venipuncture / Unknown 05/30/2024 7:36 AM EDT 05/30/2024 8:11 AM EDT us Laurence Florence MD LAB BLOOD ORDERABLES Final Resu lt Performing Organization Address [facility] Co de Phone Number [facility] [address] [place] [address], [place] [phone] * (ABNORMAL) Sedimentation rate (05/30/2024 7:36 AM EDT) [facility] Sed Rate >130(H) 0 - 20 mm/hr LAB HEMETOLOGY METHOD 05/30/2024 8:57 AM EDT [facility] Blood Venous blood specimen / Unknown Venipuncture / Unknown 05/30/2024 7:36 AM EDT 05/30/2024 8:11 AM EDT Narrative [facility] - 05/30/2024 8:57 AM EDT Rechecked. us Laurence Florence MD LAB BLOOD ORDERABLES Final Resu lt Performing Organization Address [facility]/ZIP Co de Phone Number [facility] [address] [place] [address], [place] [phone] * (ABNORMAL) Comprehensive metabolic panel (05/30/2024 7:36 AM EDT) Pathologist [facility] Sodium 140 133 - 145 mmol/L LAB CHEMISTRY METHOD 05/30/2024 9:08 AM [facility] Potassium 4.2 3.5 - 5.5 mmol/L LAB CHEMISTRY METHOD 05/30/2024 9:08 AM [facility] Chloride 104 96 - 110 mmol/L LAB CHEMISTRY METHOD 05/30/2024 9:08 AM [facility] CO2 28 21 - 32 mmol/L LAB CHEMISTRY METHOD 05/30/2024 9:08 AM [facility] Anion Gap 8 3 - 11 LAB CHEMISTRY METHOD 05/30/2024 9:08 AM [facility] Glucose 77 70 - 100 mg/dL LAB CHEMISTRY METHOD 05/30/2024 9:08 AM [facility] BUN 35(H) 5 - 25 mg/dL LAB CHEMISTRY METHOD 05/30/2024 9:08 AM [facility] Creatinine 5.30(H) 0.70 - 1.30 mg/dL LAB CHEMISTRY METHOD 05/30/2024 9:08 AM [facility] eGFR 11(L) >=60 mL/min/1. 73m2 LAB CHEMISTRY METHOD 05/30/2024 9:08 AM [facility] Comment:Calculation based on the??Chronic Kidney Disease Epidemiology Collaboration (CKD-EPI) equation refit??without adjustment for race. BUN/Creatinine Ratio 6.6 LAB CHEMISTRY METHOD 05/30/2024 9:08 AM [facility] Calcium 9.0 8.5 - 10.5 mg/dL LAB CHEMISTRY METHOD 05/30/2024 9:08 AM [facility] AST (SGOT) 10 10 - 42 unit/L LAB CHEMISTRY METHOD 05/30/2024 9:08 AM [facility] ALT (SGPT) 13 10 - 60 unit/L LAB CHEMISTRY METHOD 05/30/2024 9:08 AM [facility] Alkaline Phosphatase 141(H) 42 - 121 unit/L LAB CHEMISTRY METHOD 05/30/2024 9:08 AM EDT [facility] Total Protein 6.3 6.0 - 8.0 g/dL LAB CHEMISTRY METHOD 05/30/2024 9:08 AM [facility] Albumin 2.5(L) 3.2 - 5.0 g/dL LAB CHEMISTRY METHOD 05/30/2024 9:08 AM [facility] Total Bilirubin 0.5 0.0 - 1.4 mg/dL LAB CHEMISTRY METHOD 05/30/2024 9:08 AM T [facility] Blood Venous blood specimen / Unknown Venipuncture / Unknown 05/30/2024 7:36 AM EDT 05/30/2024 8:11 AM EDT us Laurence Florence MD LAB BLOOD ORDERABLES Final Resu lt [facility] [address] [place] [address], [place] [phone] * (ABNORMAL) Complete blood count (05/30/2024 7:36 AM EDT) WBC 9.7 4.8 - 10.8 K/mcL LAB HEMETOLOGY METHOD 05/30/2024 8:29 AM EDT [facility] RBC 3.20(L) 4.50 - 5.50 M/mcL LAB HEMETOLOGY METHOD 05/30/2024 8:29 AM EDT [facility] Hemoglobin 7.7(L) 13.5 - 17.5 g/dL LAB HEMETOLOGY METHOD 05/30/2024 8:29 AM T [facility] Hematocrit 26.0(L) 42.0 - 54.0 % LAB HEMETOLOGY METHOD 05/30/2024 8:29 AM EDT [facility] MCV 81.5 79.0 - 98.0 FL LAB HEMETOLOGY METHOD 05/30/2024 8:29 AM EDT [facility] MCH 24.1(L) 27.0 - 32.0 pcg LAB HEMETOLOGY METHOD 05/30/2024 8:29 AM EDT [facility] MCHC 29.6(L) 32.0 - 37.0 g/dL LAB HEMETOLOGY METHOD 05/30/2024 8:29 AM EDT [facility] RDW 17.8(H) 11.0 - 15.0 % LAB HEMETOLOGY METHOD 05/30/2024 8:29 AM EDT [facility] Platelets 244 130 - 400 K/mcL LAB HEMETOLOGY METHOD 05/30/2024 8:29 AM EDT [facility] MPV 11.1(H) 7.0 - 11.0 FL LAB HEMETOLOGY METHOD 05/30/2024 8:29 AM EDT [facility] NRBC 0.0 <1.0 % LAB HEMETOLOGY METHOD 05/30/2024 8:29 AM EDT [facility] NRBC Absolute 0.00 <0.10 K/mcL LAB HEMETOLOGY METHOD 05/30/2024 8:29 AM T [facility] Blood Venous blood specimen / Unknown Venipuncture / Unknown 05/30/2024 7:36 AM EDT 05/30/2024 8:11 AM EDT us Laurence Florence MD LAB BLOOD ORDERABLES Final Resu lt [facility] [address] [place] [address], documented in this encounter Visit Diagnoses Diagnosis Chronic respiratory failure with hypoxia Encounter for orthopedic aftercare following surgical amputation Encounter for surgical aftercare following surgery on the circulatory system Peripheral vascular disease, unspecified (CMS/HCC) Peripheral vascular disease, unspecified documented in this encounter Care Teams Wood Boatbuilder Relationship Specialty Start Date End Date Cass Turcios MD [address] [place] [address] [address] [place] [address] PCP - General Geriatric Medicine 04/02/24 documented as of this encounter
--- OUTSIDE RECORDS SUMMARY | 2024-05-30 17:03 | XMS_ITS | Encounter Summary ---
Author Organization [facility], Address [address] [place] [address] Phone Care Team Providers Care Business Office Assistant Name Role Phone Jade Lewis MD Primary Care Provider [phone] Encounter Details Date Type Department Care Team (Late st Contact Info) Description 04/24/2024 Treatment [facility], [address] [place] [address] Dylan Grace MD [facility] [place] [address] End stage renal disease; Dependence on renal dialysis Social History Tobacco Use Types Packs/Day Years [...] Dialysis Note - Dylan Grace MD - 04/24/2024 12:00 AM EST Patient: Beau Marie : 1955 Note Type: Dialysis Rounds-Comp Service Date: 04/24/2024 This patient was personally seen for a complete visit as part of routine monthly dialysis care for end stage renal disease. Attending Associate Director Of Sales: DYLAN GRACE Dialysis Location: [facility] Schedule: Shift: HOME MEDICATIONS [facility] Outpatient Medications allopurinol 100 mg tablet [Take 1 tablet (100 mg total) by mouth 1 (one) time each day] atorvastatin 40 mg tablet Take 1 tablet by mouth once a day. [Prescriber: Shayla Donato NP] [place] Low Dose Aspirin 81 mg tablet,delayed release (/EC) Take 1 tablet by mouth once a [...] Inhub 100-50 mcg/dose blister with device Current [employer] Allergies Allergen: No Known Allergies Allergen: No Known Drug Allergies Allergen: No Known Food Allergies DIALYSIS PRESCRIPTION Treatment Data Treatment Date: 05/01/2024 started at: 6:11 AM Dialysate / Machine Temp (prescribed): 36.0*C Dialysate / Machine Temp (actual): 36.2*C BFR (prescribed): 450 BFR (average delivered): 440 DFR (prescribed): Manual 800 DFR (average delivered): 800 Prescribed Time: 03:30 Actual Time: 02:15 EDW (kg): 66.5 Dialyzer: 180NRe Optiflux Dialysate: 2.0 K, 2.50 Ca, 1.0 Mg, 100 Dextrose ([id number]) Sodium: 138 Bicarb: 38 Pre Dialysis Vitals Pre BP Sit: 158/85 Pre Wt (kg): 69.8 EDW Deviation (kg): 3.3 Temp: 98.2*F Post Dialysis Vitals Post BP Sit: 143/95 Post Wt (kg): 68.1 TREATMENT MEDICATIONS ORDERS Cinacalcet (Sensipar) 60 mg ORAL 3X Week 01/19/2024 - 01/17/2025 Heparin Sodium (Porcine) 1,000 Units/mL Catheter Lock Arterial 1900 units Arterial Red Port Every Treatment 08/09/2023 - 08/07/2024 Heparin Sodium (Porcine) 1,000 Units/mL Catheter Lock Venous 1900 units Venous Blue Port Every Treatment 08/09/2023 - 08/07/2024 Heparin Sodium (Porcine) 1,000 Units/mL Systemic 3000 units IVP Every Treatment 04/08/2024 - 04/07/2025 Heparin Sodium (Porcine) 1,000 Units/mL Systemic 1000 units IVP Every Treatment 04/08/2024 - 04/07/2025 Mircera 150 mcg IVP Every 2 weeks During Dialysis 05/08/2024 - 05/07/2025 Vitamin D (Calcitriol) Oral 1.50 mcg ORAL Every Treatment 05/15/2023 - 05/13/2024 BP AND FLUID ASSESSMENT Post BP Sit 143/95 - 05/01/2024 167/94 - 04/29/2024 167/86 - 2024 Post Wt (kg) 68.1 - 05/01/2024 67.4 - 04/29/2024 67.5 - 2024 EDW (kg) 66.5 - 05/01/2024 66.5 - 04/29/2024 66.5 - 2024 Deviation (kg) 1.6 - 05/01/2024 0.9 - 04/29/2024 1.0 - 2024 ADEQUACY ASSESSMENT Missed Treatments 7 - Last 30 days 14 - Last 60 days Most recently missed on 05/13/2024 spKt/V (Daugirdas II) 1.10 (05/01/24) 1.12 (04/26/24) 1.46 (04/22/24) eKdrt/V 0.85 (05/01/24) 0.85 (04/26/24) 1.18 (04/22/24) % Urea Reduction 59 (05/01/24) 64 (04/26/24) 71 (04/22/24) BUN 88 (05/01/24) 83 (04/26/24) 91 (04/22/24) BUN Post Dialysis 36 (05/01/24) 30 (04/26/24) 26 (04/22/24) Creatinine 7.75 (04/19/24) 7.44 (03/08/24) 10.81 (02/12/24) Bicarbonate (CO2) 22 (04/19/24) 25 (03/08/24) 21 (02/12/24) Sodium 138 (04/19/24) 137 (03/08/24) 143 (02/12/24) ACCESS ASSESSMENT CVCatheter Tunneled Neck Active (In Use) - 08/09/2023 Placed - 08/08/2023 ANEMIA ASSESSMENT Hemoglobin 9.1 (05/01/24) 9.9 (04/24/24) 9.2 (04/19/24) Iron Saturation (TSat) 29 (04/19/24) 29 (03/08/24) 30 (02/21/24) Ferritin 1,172 (04/19/24) 1,289 (03/08/24) 800 (02/21/24) Iron 35 (04/19/24) 38 (03/08/24) 44 (02/21/24) TIBC 122 (04/19/24) 132 (03/08/24) 149 (02/21/24) Reticulocyte Hemoglobin 25.6 (03/08/24) 26.2 (12/08/23) 25.9 (09/06/23) MCV 80 (03/08/24) 82 (12/08/23) 85 (09/06/23) BMM ASSESSMENT Calcium 7.7 04/19/24 9.0 03/08/24 8.1 02/12/24 Corrected Calcium 8.4 04/19/24 9.2 03/08/24 8.3 02/12/24 Phosphorus 7.9 04/19/24 5.9 03/08/24 8.4 02/12/24 Calcium Phosphorus Product 61 04/19/24 53 03/08/24 68 02/12/24 PTH 773 04/19/24 826 03/08/24 705 02/12/24 Vitamin D, 25-OH, Total 22.2 12/08/23 Magnesium 2.1 04/19/24 1.8 03/08/24 1.9 02/12/24 Alkaline Phosphatase 124 04/19/24 142 03/08/24 97 02/12/24 Aluminum <5 12/08/23 NUTRITION ASSESSMENT Albumin 3.1 04/19/24 3.7 03/08/24 3.8 02/12/24 Potassium 4.9 04/19/24 5.1 03/08/24 5.5 02/12/24 eNPCR 1.07 05/01/24 1.05 04/26/24 1.12 04/22/24 Hemoglobin A1C 7.9 03/08/24 7.6 12/08/23 8.4 [...] reviewed. Dietary adjustments made in conjunction with fur feeder. 7.Transplant: The patient is being evaluated for a kidney transplant. 8. Vascular issues: Has wound and is planned to go to [place] next week again for intervention. Signed by: DYLAN GRACE MD on 05/13/2024 at 05:35:02 PM Transcribed by: DYLAN GRACE MD on 05/13/2024 at 05:35:02 PM documented in this encounter Plan of Treatment Not on file documented as of this encounter Visit Diagnoses Diagnosis End stage renal disease Dependence on renal dialysis documented in this encounter Care Teams Business Office Assistant Relationship Specialty Start Date End Date Jade Lewis MD [address] [place] [id number] PCP - General Internal Medicine 04/25/22 documented as of this encounter
--- OUTSIDE RECORDS SUMMARY | 2024-05-30 17:03 | XMS_ITS | Encounter Summary ---
Author Organization [facility], Address [address] [place] [address] Phone Care Team Providers Care Director Of Alumni Relations Name Role Phone Jade Lewis MD Primary Care Provider + [phone] Reason for Visit * Reason Comments Med Refill Encounter Details Date Type Department Care Team ([facility] st Contact Info) Description 10/28/2020 Refill [facility] [address] [place] [phone] Alejandro Santana MD [address] [place] [phone] Social History Tobacco Use Types Packs/Day Years [...] on filedocumented in this encounter Care Teams Director Of Alumni Relations Relationship Specialty Start Date End Date Jade Lewis MD [address] [place] [id number] PCP - General Internal Medicine 04/25/22 documented as of this encounter
--- OUTSIDE RECORDS SUMMARY | 2024-05-30 17:03 | XMS_ITS | Encounter Summary ---
Author Organization [facility] Address [address] [place] [address] Care Team Providers Care Web Application Dev Specialist Name Role Phone Lainey Cody ESTUARDO Primary Care Provider [phone] Reason for Visit * Reason Comments Durable Medical Equipment Encounter Details Date Type Department Care Team (Late st Contact Info) Description 05/03/2024 Interim Notes [facility] [address] [place] [address] [place], [place] [address] [place] [address] Social History Tobacco Use Types Packs/Day Years [...] as of this encounter Progress Notes * Frances Lind MA - 05/03/2024 4:04 PM EST Faxed over a script [facility]beside commode and standard high wheel chair with seat cushion to [facility] at [phone]//confirmation received.-[phone]. Called [facility] to see if they take [employer] care,they don't work with [employer] care insurance anymore.And I called [employer] as well,they stated they do work with [employer] care. I refaxed the items to [employer] at [phone]//confirmation received. documented in this encounter Plan of Treatment Not on file documented as of this encounter Visit Diagnoses Not on filedocumented in this encounter Additional Health Concerns Assessment Noted Time PHQ-9 Depression Total Score: 0 03/14/19 25 9:51 AM PST documented as of this encounter Care Teams Web Application Dev Specialist Relationship Specialty Start Date End Date Lianey Cody FNP [facility] [place] [address] PCP - General Internal Medicine 12/11/23 documented as of this encounter
--- OUTSIDE RECORDS SUMMARY | 2024-05-30 17:03 | XMS_ITS | Encounter Summary ---
Author Organization [facility] Address [address] [place] [address] Care Team Providers Care Starcher And Tenter Range Feeder Name Role Phone Cass Turcios MD Primary Care Provider [phone] Encounter Details Date Type Department Care Team (Latest Contact Info) Description 05/17/2024 Lab Requisition [facility] - Main Lab [address] [facility] [place] [address] Laurence Florence MD [address] [place] [phone] Type 2 diabetes mellitus without complications (CMS/HCC); [...] your loved ones. For example, child support specialist or elderly care for an older [...] Associated Diagnosis Comments COMPLETE BLOOD COUNT Routine 05/17/2024 5:37 AM EDT Type 2 diabetes mellitus without complications (CMS/HCC) End stage renal disease (CMS/HCC) HEMOGLOBIN A1C Routine 05/17/2024 5:37 AM EDT Type 2 diabetes mellitus without complications (CMS/HCC) End stage renal disease (CMS/HCC) BASIC METABOLIC PANEL Routine 05/17/2024 5:37 AM EDT Type 2 diabetes mellitus without complications ([facility]/HCC) End stage renal disease ([facility]/HCC) documented in this encounter Results * (ABNORMAL) Basic metabolic panel (05/17/2024 5:37 AM EDT) Sodium 135 133 - 145 mmol/L LAB CHEMISTRY METHOD 05/17/2024 11:[address] [facility] Potassium 5.5 3.5 - 5.5 mmol/L LAB CHEMISTRY METHOD 05/17/2024 11:[address] [facility] Chloride 95(L) 96 - 110 mmol/L LAB CHEMISTRY METHOD 05/17/2024 11:[address] [facility] CO2 29 21 - 32 mmol/L LAB CHEMISTRY METHOD 05/17/2024 11:[address] [facility] Anion Gap 11 3 - 11 LAB CHEMISTRY METHOD 05/17/2024 11:[address] [facility] Glucose 173(H) 70 - 100 mg/dL LAB CHEMISTRY METHOD 05/17/2024 11:[address] [facility] BUN 52(H) 5 - 25 mg/dL LAB CHEMISTRY METHOD 05/17/2024 11:[address] [facility] Creatinine 7.48(H) 0.70 - 1.30 mg/dL LAB CHEMISTRY METHOD 05/17/2024 11:[address] [facility] eGFR 7(L) >=60 mL/min/1. 73m2 LAB CHEMISTRY METHOD 05/17/2024 11:[address] [facility] Comment:Calculation based on the??Chronic Kidney Disease Epidemiology Collaboration (CKD-EPI) equation refit??without adjustment for race. BUN/Creatinine Ratio 7.0 LAB CHEMISTRY METHOD 05/17/2024 11:[address] [facility] Calcium 9.0 8.5 - 10.5 mg/dL LAB CHEMISTRY METHOD 05/17/2024 11:32 AM EDT [facility] Blood Venous blood specimen / Unknown Venipuncture / Unknown 05/17/2024 5:37 AM EDT 05/17/2024 9:43 AM EDT Laurence Florence MD LAB BLOOD ORDERABLES Final Resu lt Performing Organization Address [facility] [place] [facility] Co de Phone Number [facility] [address] [place] [address], [place] [phone] * (ABNORMAL) Hemoglobin A1c (05/17/2024 5:37 AM EDT) Hemoglobin A1C 7.1(H) <6.5 % LAB CHEMISTRY METHOD 05/17/2024 1:30 PM EDT [facility] Mean Bld Glu Estim. 157 mg/dL LAB CHEMISTRY METHOD 05/17/2024 1:30 PM EDT [facility] Blood Venous blood specimen / Unknown Venipuncture / Unknown 05/17/2024 5:37 AM EDT 05/17/2024 9:43 AM EDT Laurence Florence MD LAB BLOOD ORDERABLES Final Resu lt Performing Organization Address [facility] [place] [facility] de Phone Number [facility] [address] [place] [address], [place] [phone] * (ABNORMAL) Complete blood count (05/17/2024 5:37 AM EDT) WBC 16.6(H) 4.8 - 10.8 K/[facility] LAB HEMETOLOGY METHOD 05/17/2024 10:40 AM EDT [facility] RBC 3.70(L) 4.50 - 5.50 M/[facility] LAB HEMETOLOGY METHOD 05/17/2024 10:40 AM EDT [facility] Hemoglobin 8.9(L) 13.5 - 17.5 g/dL LAB HEMETOLOGY METHOD 05/17/2024 10:[address] [facility] Hematocrit 30.1(L) 42.0 - 54.0 % LAB HEMETOLOGY METHOD 05/17/2024 10:[address] [facility] MCV 82.5 79.0 - 98.0 FL LAB HEMETOLOGY METHOD 05/17/2024 10:[address] [facility] MCH 24.4(L) 27.0 - 32.0 pcg LAB HEMETOLOGY METHOD 05/17/2024 10:[address] [facility] MCHC 29.6(L) 32.0 - 37.0 g/dL LAB HEMETOLOGY METHOD 05/17/2024 10:[address] [facility] RDW 18.3(H) 11.0 - 15.0 % LAB HEMETOLOGY METHOD 05/17/2024 10:[address] [facility] Platelets 431(H) 130 - 400 K/mcL LAB HEMETOLOGY METHOD 05/17/2024 10:[address] [facility] MPV 10.6 7.0 - 11.0 FL LAB HEMETOLOGY METHOD 05/17/2024 10:[address] [facility] NRBC 0.0 <1.0 % LAB HEMETOLOGY METHOD 05/17/2024 10:[address] [facility] NRBC Absolute 0.00 <0.10 K/mcL LAB HEMETOLOGY METHOD 05/17/2024 10:[address] [facility] Blood Venous blood specimen / Unknown Venipuncture / Unknown 05/17/2024 5:37 AM EDT 05/17/2024 9:43 AM EDT us Laurence Florence MD LAB BLOOD ORDERABLES Final Resu lt [facility] ([facility]) [facility] [address] [place] [address], documented in this encounter Visit Diagnoses Diagnosis Type 2 diabetes mellitus without complications End stage renal disease (CMS/HCC) End stage renal disease documented in this encounter Care Teams Starcher And Tenter Range Feeder Relationship Specialty Start Date End Date Cass Turcios MD [address] [place] [address] [address] [place] [address] PCP - General Geriatric Medicine 04/02/24 documented as of this encounter
--- OUTSIDE RECORDS SUMMARY | 2024-05-30 17:03 | XMS_ITS | Encounter Summary ---
Author Organization [facility] Address [address] [place] [address] Care Team Providers Care Belt Operator Name Role Phone Cass Turcios MD Primary Care Provider [phone] Encounter Details Date Type Department Care Team (Late st Contact Info) Description 05/20/2024 Lab Requisition [facility] - Main Lab [address] [facility] [place] [address] Laurence Florence MD [address] [place] [address] Elevated white blood cell count, unspecified Social History Tobacco Use Types Packs/Day Years [...] care for your loved ones. For example, vocational childcare teacher or elderly care for an older [...] Associated Diagnosis Comments COMPLETE BLOOD COUNT Routine 05/20/2024 6:04 AM EDT Elevated white blood cell count, unspecified COMPREHENSIVE METABOLIC PANEL Routine 05/20/2024 6:04 AM EDT Elevated white blood cell count, unspecified documented in this encounter Results * (ABNORMAL) Comprehensive metabolic panel (05/20/2024 6:04 AM EDT) Sodium 138 133 - 145 mmol/L LAB CHEMISTRY METHOD 05/20/2024 1:59 PM [facility] Potassium 5.8(H) 3.5 - 5.5 mmol/L LAB CHEMISTRY METHOD 05/20/2024 1:59 PM [facility] Chloride 100 96 - 110 mmol/L LAB CHEMISTRY METHOD 05/20/2024 1:59 PM [facility] CO2 26 21 - 32 mmol/L LAB CHEMISTRY METHOD 05/20/2024 1:59 PM [facility] Anion Gap 12(H) 3 - 11 LAB CHEMISTRY METHOD 05/20/2024 1:59 PM [facility] Glucose 130(H) 70 - 100 mg/dL LAB CHEMISTRY METHOD 05/20/2024 1:59 PM [facility] BUN 76(H) 5 - 25 mg/dL LAB CHEMISTRY METHOD 05/20/2024 1:59 PM [facility] Creatinine 9.66(H) 0.70 - 1.30 mg/dL LAB CHEMISTRY METHOD 05/20/2024 1:59 PM [facility] eGFR 5(L) >=60 mL/min/1. 73m2 LAB CHEMISTRY METHOD 05/20/2024 1:59 PM [facility] Comment:Calculation based on the??Chronic Kidney Disease Epidemiology Collaboration (CKD-EPI) equation refit??without adjustment for race. BUN/Creatinine Ratio 7.9 LAB CHEMISTRY METHOD 05/20/2024 1:59 PM [facility] Calcium 9.2 8.5 - 10.5 mg/dL LAB CHEMISTRY METHOD 05/20/2024 1:59 PM [facility] AST (SGOT) 9(L) 10 - 42 unit/L LAB CHEMISTRY METHOD 05/20/2024 1:59 PM [facility] ALT (SGPT) 14 10 - 60 unit/L LAB CHEMISTRY METHOD 05/20/2024 1:59 PM EDT [facility] Alkaline Phosphatase 142(H) 42 - 121 unit/L LAB CHEMISTRY METHOD 05/20/2024 1:59 PM EDT [facility] Total Protein 6.1 6.0 - 8.0 g/dL LAB CHEMISTRY METHOD 05/20/2024 1:59 PM EDT [facility] Albumin 2.5(L) 3.2 - 5.0 g/dL LAB CHEMISTRY METHOD 05/20/2024 1:59 PM EDT [facility] Total Bilirubin 0.4 0.0 - 1.4 mg/dL LAB CHEMISTRY METHOD 05/20/2024 1:59 PM EDT [facility] Blood Venous blood specimen / Unknown Venipuncture / Unknown 05/20/2024 6:04 AM EDT 05/20/2024 11:40 AM EDT us Laurence Florence MD LAB BLOOD ORDERABLES Final Resu lt [facility] [address] [place] [address], * (ABNORMAL) Complete blood count (05/20/2024 6:04 AM EDT) WBC 15.6(H) 4.8 - 10.8 K/mcL LAB HEMETOLOGY METHOD 05/20/2024 1:18 PM EDT [facility] RBC 3.50(L) 4.50 - 5.50 M/mcL LAB HEMETOLOGY METHOD 05/20/2024 1:18 PM EDT [facility] Hemoglobin 8.6(L) 13.5 - 17.5 g/dL LAB HEMETOLOGY METHOD 05/20/2024 1:18 PM EDT [facility] Hematocrit 29.0(L) 42.0 - 54.0 % LAB HEMETOLOGY METHOD 05/20/2024 1:18 PM EDT [facility] MCV 82.9 79.0 - 98.0 FL LAB HEMETOLOGY METHOD 05/20/2024 1:18 PM EDT [facility] MCH 24.6(L) 27.0 - 32.0 pcg LAB HEMETOLOGY METHOD 05/20/2024 1:18 PM EDT [facility] MCHC 29.7(L) 32.0 - 37.0 g/dL LAB HEMETOLOGY METHOD 05/20/2024 1:18 PM EDT [facility] RDW 19.1(H) 11.0 - 15.0 % LAB HEMETOLOGY METHOD 05/20/2024 1:18 PM EDT [facility] Platelets 479(H) 130 - 400 K/mcL LAB HEMETOLOGY METHOD 05/20/2024 1:18 PM EDT [facility] MPV 11.3(H) 7.0 - 11.0 FL LAB HEMETOLOGY METHOD 05/20/2024 1:18 PM EDT [facility] NRBC 0.0 <1.0 % LAB HEMETOLOGY METHOD 05/20/2024 1:18 PM EDT [facility] NRBC Absolute 0.00 <0.10 K/mcL LAB HEMETOLOGY METHOD 05/20/2024 1:18 PM EDT [facility] Blood Venous blood specimen / Unknown Venipuncture / Unknown 05/20/2024 6:04 AM EDT 05/20/2024 11:40 AM EDT us Laurence Florence MD LAB BLOOD ORDERABLES Final Resu lt [facility] [address] [place] [address], documented in this encounter Visit Diagnoses Diagnosis Elevated white blood cell count, unspecified documented in this encounter Care Teams Belt Operator Relationship Specialty Start Date End Date Cass Turcios MD [address] [place] [address] [address] [place] [address] PCP - General Geriatric Medicine 04/02/24 documented as of this encounter
--- OUTSIDE RECORDS SUMMARY | 2024-05-30 17:03 | XMS_ITS | Encounter Summary ---
[facility] Organization [facility] Address [address] [place] [address] Care Team Providers Care Equity Research Analyst Name Role Phone Cass Turcios MD Primary Care Provider [phone] Encounter Details Date Type Department Care Team (Latest Contact Info) Description 05/28/[address] [facility] - Main Lab 299 [facility] [place] [address] Laurence Florence MD [address] [place] [phone] Anemia, unspecified; End stage renal disease (CMS/HCC); Unspecified asthma, uncomplicated Social History Tobacco Use Types Packs/Day Years [...] for your loved ones. For example, children's counselor or elderly care for an older adult? [...] Associated Diagnosis Comments COMPLETE BLOOD COUNT Routine 05/29/2024 5:09 AM EDT Anemia, unspecified End stage renal disease (CMS/HCC) Unspecified asthma, uncomplicated MAGNESIUM Routine 05/29/2024 5:09 AM EDT Anemia, unspecified End stage renal disease (CMS/HCC) Unspecified asthma, uncomplicated RENAL FUNCTION PANEL Routine 05/29/2024 5:09 AM EDT Anemia, unspecified End stage renal disease (CMS/HCC) Unspecified asthma, uncomplicated documented in this encounter Results * (ABNORMAL) Magnesium (05/29/2024 5:09 AM EDT) Pathologist [facility] Magnesium 1.8(L) 1.9 - 2.6 mg/dL LAB CHEMISTRY METHOD 05/29/2024 9:20 AM EDT [facility] Blood Venous blood specimen / Unknown Venipuncture / Unknown 05/29/2024 5:09 AM EDT 05/29/2024 8:42 AM EDT us Laurence Florence MD LAB BLOOD ORDERABLES Final Resu lt [facility] [address] [place] [address], [place] [phone] * (ABNORMAL) Complete blood count (05/29/2024 5:09 AM EDT) [facility] WBC 10.8 4.8 - 10.8 K/mcL LAB HEMETOLOGY METHOD 05/29/2024 9:01 AM EDT [facility] RBC 3.50(L) 4.50 - 5.50 M/mcL LAB HEMETOLOGY METHOD 05/29/2024 9:01 AM EDT [facility] Hemoglobin 8.2(L) 13.5 - 17.5 g/dL LAB HEMETOLOGY METHOD 05/29/2024 9:01 AM EDT [facility] Hematocrit 28.4(L) 42.0 - 54.0 % LAB HEMETOLOGY METHOD 05/29/2024 9:01 AM T [facility] MCV 81.8 79.0 - 98.0 FL LAB HEMETOLOGY METHOD 05/29/2024 9:01 AM EDT [facility] MCH 23.6(L) 27.0 - 32.0 pcg LAB HEMETOLOGY METHOD 05/29/2024 9:01 AM EDT [facility] MCHC 28.9(L) 32.0 - 37.0 g/dL LAB HEMETOLOGY METHOD 05/29/2024 9:01 AM [facility] RDW 18.2(H) 11.0 - 15.0 % LAB HEMETOLOGY METHOD 05/29/2024 9:01 AM EDT [facility] Platelets 263 130 - 400 K/mcL LAB HEMETOLOGY METHOD 05/29/2024 9:01 AM [facility] MPV 11.2(H) 7.0 - 11.0 FL LAB HEMETOLOGY METHOD 05/29/2024 9:01 AM [facility] NRBC 0.0 <1.0 % LAB HEMETOLOGY METHOD 05/29/2024 9:01 AM [facility] NRBC Absolute 0.00 <0.10 K/mcL LAB HEMETOLOGY METHOD 05/29/2024 9:01 AM [facility] Blood Venous blood specimen / Unknown Venipuncture / Unknown 05/29/2024 5:09 AM EDT 05/29/2024 8:42 AM EDT us Laurence Florence MD LAB BLOOD ORDERABLES Final Resu lt [facility] [address] [place] [address], * (ABNORMAL) Renal function panel (05/29/2024 5:09 AM EDT) Sodium 135 133 - 145 mmol/L LAB CHEMISTRY METHOD 05/29/2024 10:03 AM [facility] Potassium 4.7 3.5 - 5.5 mmol/L LAB CHEMISTRY METHOD 05/29/2024 10:03 AM [facility] Chloride 99 96 - 110 mmol/L LAB CHEMISTRY METHOD 05/29/2024 10:03 AM [facility] CO2 27 21 - 32 mmol/L LAB CHEMISTRY METHOD 05/29/2024 10:03 AM [facility] Anion Gap 9 3 - 11 LAB CHEMISTRY METHOD 05/29/2024 10:03 AM [facility] Glucose 22(LL) 70 - 100 mg/dL LAB CHEMISTRY METHOD 05/29/2024 10:03 AM [facility] BUN 60(H) 5 - 25 mg/dL LAB CHEMISTRY METHOD 05/29/2024 10:03 AM [facility] Creatinine 7.71(H) 0.70 - 1.30 mg/dL LAB CHEMISTRY METHOD 05/29/2024 10:03 AM [facility] eGFR 7(L) >=60 mL/min/1. 73m2 LAB CHEMISTRY METHOD 05/29/2024 10:03 AM [facility] Comment:Calculation based on the??Chronic Kidney Disease Epidemiology Collaboration (CKD-EPI) equation refit??without adjustment for race. BUN/Creatinine Ratio 7.8 LAB CHEMISTRY METHOD 05/29/2024 10:03 AM [facility] Albumin 2.4(L) 3.2 - 5.0 g/dL LAB CHEMISTRY METHOD 05/29/2024 10:03 AM [facility] Calcium 8.7 8.5 - 10.5 mg/dL LAB CHEMISTRY METHOD 05/29/2024 10:03 AM [facility] Phosphorus 4.7(H) 2.5 - 4.5 mg/dL LAB CHEMISTRY METHOD 05/29/2024 10:03 AM [facility] Blood Venous blood specimen / Unknown Venipuncture / Unknown 05/29/2024 5:09 AM EDT 05/29/2024 8:42 AM EDT us Laurence Florence MD LAB BLOOD ORDERABLES Final Resu lt [facility] [address] [place] [address], documented in this encounter Visit Diagnoses Diagnosis Anemia, unspecified End stage renal disease (CMS/[facility]) End stage renal disease Unspecified asthma, uncomplicated documented in this encounter Care Teams Equity Research Analyst Relationship Specialty Start Date End Date Cass Turcios MD [address] [place] [address] [address] [place] [address] PCP - General Geriatric Medicine 04/02/24 documented as of this encounter
--- OUTSIDE RECORDS SUMMARY | 2024-05-30 17:03 | XMS_ITS | Encounter Summary ---
Author Organization [facility], Address [address] [place] [address] Phone Care Team Providers Care Executive Business Coach Name Role Phone Jade Lewis MD Primary Care Provider [phone] Reason for Visit * Reason Comments Med Refill Encounter Details Date Type Department Care Team ([facility] st Contact Info) Description 11/27/2020 Refill [facility] [address] [place] [phone] Alejandro Santana MD [address] [place] [id number] Social History Tobacco Use Types Packs/Day Years [...] on filedocumented in this encounter Care Teams Executive Business Coach Relationship Specialty Start Date End Date Jade Lewis MD [address] [place] [id number] PCP - General Internal Medicine 04/25/22 documented as of this encounter
--- OUTSIDE RECORDS SUMMARY | 2024-05-30 17:03 | XMS_ITS | Encounter Summary ---
Author Organization [facility] [address] Address [address] [place] [address] Care Team Providers Care Brine Tank Operator Name Role Phone Cass Turcios MD Primary Care Provider [phone] Encounter Details Date Type Department Care Team ([facility] st Contact Info) Description 05/21/2024 Lab Requisition [facility] - Main Lab 299 [facility] [place] [address] Laurence Florence MD [address] [place] [phone] Chronic combined systolic (congestive) and diastolic (congestive) heart failure (CMS/HCC); End stage renal disease (CMS/HCC) Social [...] your doctor or pharmacy? Not on file 01/20/2 025 Financial Risk Answer Date Recorded How [...] Diagnosis Comments CBC WITH AUTO DIFFERENTIAL Routine 05/21/2024 5:40 [...] failure (CMS/HCC) End stage renal disease (CMS/HCC) documented in this encounter Results * (ABNORMAL) CBC auto differential (05/21/2024 5:40 AM EDT) Pathologist [facility] WBC 14.4(H) 4.8 - 10.8 K/mcL LAB [facility]EMETOLOGY [facility] RBC 3.80(L) 4.50 - 5.50 M/mcL LAB HEMETOLOGY METHOD 05/21/2024 12:49 PM [facility] Hemoglobin 9.5(L) 13.5 - 17.5 g/dL LAB HEMETOLOGY METHOD 05/21/2024 12:49 PM [facility] Hematocrit 33.1(L) 42.0 - 54.0 % LAB HEMETOLOGY METHOD 05/21/2024 12:49 PM [facility] MCV 87.1 79.0 - 98.0 FL LAB HEMETOLOGY METHOD 05/21/2024 12:49 PM [facility] MCH 25.0(L) 27.0 - 32.0 pcg LAB HEMETOLOGY METHOD 05/21/2024 12:49 PM [facility] MCHC 28.7(L) 32.0 - 37.0 g/dL LAB HEMETOLOGY METHOD 05/21/2024 12:49 PM [facility] RDW 19.6(H) 11.0 - 15.0 % LAB HEMETOLOGY METHOD 05/21/2024 12:49 PM [facility] Platelets 447(H) 130 - 400 K/mcL LAB HEMETOLOGY METHOD [facility]2024 12[facility] MPV 11.3(H) 7.0 - 11.0 FL LAB HEMETOLOGY METHOD 05/21/2024 12:49 PM [facility] NRBC 0.0 <1.0 % LAB HEMETOLOGY METHOD 05/21/2024 12:49 PM [facility] NRBC Absolute 0.00 <0.10 K/mcL LAB HEMETOLOGY METHOD 05/21/2024 12:49 PM [facility] Neutrophils Relative 76.8 % LAB HEMETOLOGY METHOD 05/21/2024 12:49 PM [facility] Lymphocytes Relative 13.0 % LAB HEMETOLOGY METHOD 05/21/2024 12:49 PM [facility] Monocytes Relative 7.0 % LAB HEMETOLOGY METHOD 05/21/2024 12:49 PM [facility] Eosinophils Relative 2.0 % LAB HEMETOLOGY METHOD 05/21/2024 12:49 PM [facility] Basophils Relative 0.4 % LAB HEMETOLOGY METHOD 05/21/2024 12:49 PM [facility] Immature Granulocytes Relative 0.8 % LAB HEMETOLOGY METHOD 05/21/2024 12:49 PM [facility] Neutrophils Absolute 11.05(H) 1.50 - 7.00 K/mcL LAB HEMETOLOGY METHOD 05/21/2024 12:49 PM [facility] Lymphocytes Absolute 1.87 1.00 - 5.00 K/mcL LAB HEMETOLOGY METHOD 05/21/2024 12:49 PM [facility] Monocytes Absolute 1.00 0.20 - 1.00 K/mcL LAB HEMETOLOGY METHOD 05/21/2024 12:49 PM [facility] Eosinophils Absolute 0.29 0.00 - 0.50 K/[facility] LAB HEMETOLOGY METHOD 05/21/2024 12:49 PM EDT [facility] Basophils Absolute 0.06 0.00 - 0.20 K/[facility] LAB HEMETOLOGY METHOD 05/21/2024 12:49 PM EDT [facility] Immature Granulocytes Absolute 0.11(H) 0.00 - 0.03 K/[facility] LAB HEMETOLOGY METHOD 05/21/2024 12:49 PM EDT [facility] Blood Venous blood specimen / Unknown Venipuncture / Unknown 05/21/2024 5:40 AM EDT 05/21/2024 11:19 AM EDT us Laurence Florence MD LAB BLOOD ORDERABLES Final Resu lt [facility] [address] [place] [address], * (ABNORMAL) Basic metabolic panel (05/21/2024 5:40 AM EDT) Sodium 137 133 - 145 mmol/L LAB CHEMISTRY METHOD 05/21/2024 2:38 PM [facility] Potassium 5.3 3.5 - 5.5 mmol/L LAB CHEMISTRY METHOD 05/21/2024 2:38 PM [facility] Comment:Hemolysis present Chloride 99 96 - 110 mmol/L LAB CHEMISTRY METHOD 05/21/2024 2:38 PM [facility] CO2 27 21 - 32 mmol/L LAB CHEMISTRY METHOD 05/21/2024 2:38 PM [facility] Anion Gap 11 3 - 11 LAB CHEMISTRY METHOD 05/21/2024 2:38 PM [facility] Glucose 76 70 - 100 mg/dL LAB CHEMISTRY METHOD 05/21/2024 2:38 PM [facility] BUN 58(H) 5 - 25 mg/dL LAB CHEMISTRY METHOD 05/21/2024 2:38 PM EDT [facility] Creatinine 7.10(H) 0.70 - 1.30 mg/dL LAB CHEMISTRY METHOD 05/21/2024 2:38 PM EDT [facility] eGFR 8(L) >=60 mL/min/1. 73m2 LAB CHEMISTRY METHOD 05/21/2024 2:38 PM EDT [facility] Comment:Calculation based on the??Chronic Kidney Disease Epidemiology Collaboration (CKD-EPI) equation refit??without adjustment for race. BUN/Creatinine Ratio 8.2 LAB CHEMISTRY METHOD 05/21/2024 2:38 PM EDT [facility] Calcium 8.6 8.5 - 10.5 mg/dL LAB CHEMISTRY METHOD 05/21/2024 2:38 PM EDT [facility] Blood Venous blood specimen / Unknown Venipuncture / Unknown 05/21/2024 5:40 AM EDT 05/21/2024 11:19 AM EDT us Laurence Florence MD LAB BLOOD ORDERABLES Final Resu lt [facility] [address] [place] [address], documented in this encounter Visit Diagnoses Diagnosis Chronic combined systolic (congestive) and diastolic (congestive) heart failure End stage renal disease (CMS/HCC) End stage renal disease documented in this encounter Care Teams Brine Tank Operator Relationship Specialty Start Date End Date Cass Turcios MD [address] [place] [address] [address] [place] [address] PCP - General Geriatric Medicine 04/02/24 documented as of this encounter
== END 2024-05-30 14:23 | disposition home or self-care (01) ==
LOC: HO.HVS 13:39
PROVIDERS: PCP Nurse Practitioner; Visit Provider Surgery Vascular Surgery
DX: T87.9 Unspecified complications of amputation stump (principal)
CPT/HCPCS: 99024

== ENCOUNTER → 2024-05-30 13:39 | Outpatient (BNVA) | payer MEDICARE, MEDICAID, SELFPAY | PROVIDERS: PCP Nurse Practitioner; Visit Provider Surgery Vascular Surgery | DX: T87.89 Other complications of amputation stump (principal) | CPT/HCPCS: 99212 ==

== ENCOUNTER 2024-05-31 16:01 | Emergency (ER) | payer MEDICARE, MEDICAID, SELFPAY ==
--- NOTE | ~2024-05-31 | CT_ITS ---
CLINICAL HISTORY: infection Exam: CT right thigh without IV contrast. Comparison: 05/25/2024 Findings: No organized fluid collection seen in the right lower extremity soft tissues. Soft tissue irregularity and probable wound at the lateral aspect of the amputation stump. No erosive bone lesion. Severe atherosclerotic calcifications. No acute fracture. Impression: Skin thickening and subcutaneous edema at the distal and lateral aspect of the amputation stump with an associated wound and a small amount of subcutaneous gas. No organized fluid collection to suggest abscess. This document has been electronically signed by: Zeus Monge MD on 05/31/2024 21:35:15
[2024-05-31 16:06] VITALS: BP 190/85; PULSE 63; O2SAT 87
[2024-05-31 16:12] VITALS: BP 205/78; PULSE 114; RESP 18; TEMP 36.4; O2SAT 94; BMI 26.2
[2024-05-31 17:16] LABS: MANUAL DIFF FLAG NO
[2024-05-31 17:29] LABS: Basophils Percent Auto 0.4 % (0-2); Eosinophils Absolute Auto 0.3 X10*3/uL (0.0-0.4); Eosinophils Percent Auto 2.8 % (0-4); Hemoglobin 8.6 g/dl (14.0-18.0); Imm Gran Abs Auto 0.05 X10*3/uL (0.00-0.03); Imm Gran Pct Auto 0.5 % (0.0-0.4); Lymphocytes Absolute Auto 1.4 X10*3/uL (1.2-4.9); Mean Corpuscular HGB Conc 30.7 g/dl (31.0-36.0); Mean Corpuscular Volume 78.2 fL (80.0-98.0); Mean Platelet Volume 9.8 fL (9.4-12.4); Monocytes Absolute Auto 0.7 X10*3/uL (0.1-1.2); Monocytes Percent Auto 6.9 % (2-11); Neutrophils Absolute Auto 7.7 x10*3/uL (2.0-8.3); Neutrophils Percent Auto 75.4 % (45-73); Platelet Count 233 X10*3/uL (160-400); Red Blood Count 3.58 X10*6/uL (4.60-5.80); Red Cell Distribution Width 17.8 % (11.0-16.0); White Blood Count 10.2 X10*3/uL (4.8-10.8)
[2024-05-31 17:32] LABS: Lactic Acid 0.9 mmol/L (0.5-2.0)
[2024-05-31 17:39] LABS: Alanine Aminotransferase 6 U/L (0-40); Albumin Level 3.2 g/dL (3.5-5.0); Anion Gap 13 (12-20); Aspartate Amino Transferase 29 U/L (5-37); Bilirubin Total 0.4 mg/dL (0.0-1.0); Blood Urea Nitrogen 21 mg/dL (9-16); Calcium 8.9 mg/dL (8.4-10.2); Carbon Dioxide 29 mmol/L (22-29); Chloride 104 mmol/L (96-108); Creatinine Clr Calc Pharmacy 18.1; Estimated Glomerular Filt Rate 20; Glucose Random 83 mg/dL (60-115); Magnesium 1.8 mg/dL (1.6-2.6); Potassium 3.8 mmol/L (3.3-5.1); Sodium 142 mmol/L (135-145); Total Protein 7.1 g/dL (6.5-8.0)
--- NOTE | 2024-05-31 17:54 | ED.GENADULT ---
HPI - General Adult General Chief complaint: Wound/Laceration Stated complaint: BLEEDING FROM WOUND RECENT BKA/DIALYSIS Time Seen by Provider: 05/31/24 16:26 Source: patient and family Limitations: language barrier History of Present Illness ED Provider: Rena Martinez PA-C HPI narrative: 69-year-old male with a history of end-stage renal disease on dialysis, acute on chronic systolic and diastolic heart failure, hypertension, hyperlipidemia, diabetes, seizure disorder, status post right AKA on 05/09/24 Dr. Cannon, who presents with incision dehiscence. Patient was at dialysis when part of the incision line opened. No overlying redness, warmth or purulence, no new pain. No fevers. Patient was just seen by Dr. Cannon yesterday, some of the sutures were removed at that time. Related Data Home Medications ?Medication ?Instructions ?Recorded ?Confirmed allopurinol 100 mg tablet 100 mg PO MOWEFR@1600 04/19/22 05/26/24 atorvastatin 40 mg tablet 40 mg PO SUTUTHSA@0900 04/19/22 05/26/24 doxazosin 4 mg tablet 4 mg PO BEDTIME 04/19/22 05/26/24 furosemide 80 mg tablet 80 mg PO SUTUTHSA@0900 04/19/22 05/26/24 omeprazole 20 mg capsule,delayed 20 mg PO DAILY@0630 04/19/22 05/26/24 release insulin lispro 100 unit/mL See Rx Instructions .Route .COMPLEX 04/10/23 05/26/24 subcutaneous pen aspirin 81 mg tablet,delayed 81 mg PO SUTUTHSA@0900 06/20/23 05/26/24 release pregabalin 75 mg capsule 75 mg PO TID 06/20/23 05/26/24 sucroferric oxyhydroxide 500 mg 500 mg PO TIDWM 01/24/24 05/26/24 chewable tablet (Velphoro) aspirin 81 mg tablet,delayed 81 mg PO MOWEFR@1600 04/05/24 05/26/24 release atorvastatin 40 mg tablet 40 mg PO MOWEFR@1600 04/05/24 05/26/24 fluticasone fur. 100 mcg-umeclid 1 inh inhalation DAILY 04/05/24 05/26/24 62.5 mcg-vilant 25 mcg inhalat.powder (Trelegy Ellipta) furosemide 80 mg tablet 80 mg PO MOWEFR@1600 04/05/24 05/26/24 losartan 25 mg tablet 25 mg PO MOWEFR@1600 04/05/24 05/26/24 losartan 25 mg tablet 25 mg PO SUTUTHSA@0900 04/05/24 05/26/24 insulin glargine 100 unit/mL (3 22 unit subcut BEDTIME 05/01/24 05/26/24 mL) subcutaneous pen (Lantus Solostar U-100 Insulin) acetaminophen 500 mg tablet 1,000 mg PO Q8H PRN Pain 05/26/24 05/26/24 amlodipine 10 mg tablet 10 mg PO DAILY 05/26/24 05/26/24 calcium carbonate (Calcium 500) 500 mg PO TID 05/26/24 05/26/24 carvedilol 12.5 mg tablet 12.5 mg PO BID 05/26/24 05/26/24 docusate sodium 100 mg capsule 100 mg PO DAILY 05/26/24 05/26/24 doxycycline monohydrate 100 mg 100 mg PO BID 05/26/24 05/26/24 capsule insulin lispro 100 unit/mL See Rx Instructions .Route .COMPLEX 05/26/24 05/26/24 subcutaneous solution (Humalog U-100 Insulin) levetiracetam 1,000 mg tablet 1,000 mg PO BID 05/26/24 05/26/24 (Keppra) tramadol 25 mg tablet 25 mg PO Q6H PRN Severe Pain 05/26/24 05/26/24 (Scale Score 7-10) Previous Rx's ?Medication ?Instructions ?Recorded PleurX catheter drainage kits #10 ea 10/17/23 doxycycline monohydrate 100 mg 100 mg PO DAILY 10 days #10 caps 05/27/24 capsule Allergies Allergy/AdvReac Type Severity Reaction Status Date / Time Iodinated Contrast Media Allergy Severe Facial Verified 05/31/24 16:14 [Contrast Dye] Swelling hydralazine AdvReac Severe vasculitis Verified 05/31/24 16:14 Review of Systems Review of Systems: Yes all other systems are reviewed and are negative Constitutional: Constitutional: Denies fatigue and Denies fever(s) Musculoskeletal: Musculoskeletal: Denies arthralgias and Denies joint swelling Integumentary/Breasts: Skin/Breast: Denies erythema, Denies skin ulcer, Denies sores and Reports wounds Endocrine: Endocrine: Denies fatigue PMFSH Past Medical History Attestation statement: The following information was validated with the patient. Medical History Above knee amputation of right lower extremity Left ventricular systolic dysfunction (LVSD) PVD (peripheral vascular disease) Postop check Acute pericardial effusion ESRD needing dialysis Right sided weakness Dehiscence of wound Peripheral arterial disease Cellulitis of right foot Hypertension Dry gangrene HFrEF (heart failure with reduced ejection fraction) ESRD (end stage renal disease) Chronic combined systolic and diastolic CHF (congestive heart failure) Chronic pericardial effusion Arthritis Asthma Restless leg syndrome Acute on chronic systolic and diastolic heart failure, NYHA class 3 Anemia ESRD (end stage renal disease) Occlusive thrombus Pulmonary edema ROBERT (obstructive sleep apnea) Type 2 diabetes mellitus Hyperlipidemia Hypertension A-V fistula ESRD on dialysis Falling Surgical History Status post creation of pericardial window Postop check Hx of right BKA Status post transmetatarsal amputation of right foot History of transmetatarsal amputation of foot History of surgery H/O colonoscopy Recurrent pleural effusion Pleural effusion on right (07/13/23) Family History Family History Father No problems noted. Mother No problems noted. Social History Social History Household Members: Children Household Members Other:: son Housing: Apartment Are you a primary laboratory animal caretaker to a significant other at home: No Do you presently have visiting nurse or other home services: No Alcohol intake: former Comment: n Patient Tobacco Use Status: Former Tobacco user Tobacco use type: Cigarette Smoked in Last 30 Days: No Second Hand Smoke Exposure: No Use of substances other than those prescribed or required for medical reasons: No Advance Directives: Yes Advance Directives on File: Yes Advance Directives Date on File: 10/04/23 service: No Physical Exam ED Vital Signs: Vital Signs - 24 hr 05/31/24 16:12 05/31/24 18:13 05/31/24 19:17 Temperature 97.6 F 98.1 F Pulse Rate 114 H 63 68 Respiratory Rate 18 13 Blood Pressure 205/78 H 195/77 H 207/84 H Pulse Oximetry 94 96 Oxygen Delivery Method Room Air Room Air 05/31/24 20:17 05/31/24 20:51 Temperature 98.0 F Pulse Rate 63 60 Respiratory Rate 13 Blood Pressure 209/78 H 190/80 H Pulse Oximetry 95 Oxygen Delivery Method Room Air BMI result Body Mass Index 26.2 Const Other: Awake, drowsy Orientation/consciousness: patient oriented x3 Resp Effort & Inspection: normal respiratory effort Cardio Other: Normal peripheral perfusion Skin Other: Warm dry no rash Neuro General: patient oriented x3, gait normal, no focal motor deficits and CN's II-XI intact bilaterally Extrem Other: Psych Other: Cooperative Course Consultations Consultation #1: Dr. Cannon ....... He reviewed images that I sent him, we reviewed results, there was no infection, he advises to pack the site, dress it, the patient can follow up with him in 2 weeks. The patient was also currently on doxycycline. I relayed the plan to the family. The family is not happy. Time: 22:03 Medications Administered Discontinued Medications Generic Name Dose Route Start Last Admin Trade Name Martinq PRN Reason Stop Dose Admin Amlodipine Besylate 10 mg 05/31/24 21:35 05/31/24 21:51 Amlodipine Besylate 10 Mg Tablet PO 05/31/24 21:36 10 mg ONCE ONE Administration Protocol Carvedilol 12.5 mg 05/31/24 21:35 05/31/24 21:51 Carvedilol 12.5 Mg Tablet PO 05/31/24 21:36 12.5 mg ONCE ONE Administration Protocol Dextrose 25 gm 05/31/24 19:20 05/31/24 19:27 Dextrose 50 % 25 Gm/50 Ml Syringe IVPUSH 05/31/24 19:21 25 gm ONCE ONE Administration Labetalol HCl 20 mg 05/31/24 18:34 05/31/24 19:17 Labetalol Hcl 100 Mg/20 Ml Vial IVPUSH 05/31/24 18:35 20 mg ONCE ONE Administration Labetalol HCl 30 mg 05/31/24 20:13 05/31/24 20:17 Labetalol Hcl 100 Mg/20 Ml Vial IVPUSH 05/31/24 20:14 30 mg ONCE ONE Administration Losartan Potassium 25 mg 05/31/24 21:35 05/31/24 21:51 Losartan Potassium 25 Mg Tablet PO 05/31/24 21:36 25 mg ONCE ONE Administration Protocol Medical Decision Making Medical Decision Making MDM Narrative: 69-year-old male with a history of end-stage renal disease on dialysis, acute on chronic systolic and diastolic heart failure, hypertension, hyperlipidemia, diabetes, seizure disorder, status post right AKA on 05/09/24 Dr. Cannon, who presents with incision dehiscence. Patient was at dialysis when part of the incision line opened. No overlying redness, warmth or purulence, no new pain. No fevers. Patient was just seen by Dr. Cannon yesterday, some of the sutures were removed at that time. Problem: Recent surgery, end-stage renal, diabetes History: Per patient and his family I have considered the following differential diagnoses: Wound dehiscence, cellulitis, purulent cellulitis, osteomyelitis, abscess Plan: We will be obtaining screening labs, blood cultures and lactic in the event that he has an infection, to note this is not sepsis he is not febrile. Obtaining imaging. Once I have imaging I will reach out to his surgeon. I have independently reviewed the following tests: Labs: No overall leukocytosis but left shift noted, stable anemia, no electrolyte abnormalities, creatinine at patient's baseline having just had dialysis CT right stump:mpression: Skin thickening and subcutaneous edema at the distal and lateral aspect of the amputation stump with an associated wound and a small amount of subcutaneous gas. No organized fluid collection to suggest abscess. Lab Data 05/31/24 17:12 05/31/24 17:12 Labs: Lab Results 05/31/24 Range/Units 17:12 WBC 10.2 (4.8-10.8) X10*3/uL RBC 3.58 L (4.60-5.80) X10*6/uL Hgb 8.6 L (14.0-18.0) g/dl Hct 28.0 L (42.0-52.0) % MCV 78.2 L (80.0-98.0) fL MCH 24.0 L (27.0-33.0) pg MCHC 30.7 L (31.0-36.0) g/dl RDW 17.8 H (11.0-16.0) % Plt Count 233 D (160-400) X10*3/uL MPV 9.8 (9.4-12.4) fL Immature Gran % (Auto) 0.5 H (0.0-0.4) % Neut % (Auto) 75.4 H (45-73) % Lymph % (Auto) 14.0 L (20-40) % [place] % (Auto) 6.9 (2-11) % Eos % (Auto) 2.8 (0-4) % Baso % (Auto) 0.4 (0-2) % Lymph # (Auto) 1.4 (1.2-4.9) X10*3/uL [place] # (Auto) 0.7 (0.1-1.2) X10*3/uL Eos # (Auto) 0.3 (0.0-0.4) X10*3/uL Baso # (Auto) 0.0 (0.0-0.2) X10*3/uL Abs Immat Gran (auto) 0.05 H (0.00-0.03) X10*3/uL Absolute Neuts (auto) 7.7 (2.0-8.3) x10*3/uL Absolute Nucleated RBC 0.000 (0.0-0.012) X10*3/uL Nucleated RBC % (auto) 0.0 (0.0-0.2) /100WBC Sodium 142 (135-145) mmol/L Potassium 3.8 (3.3-5.1) mmol/L Chloride 104 (96-108) mmol/L Carbon Dioxide 29 (22-29) mmol/L Anion Gap 13 (12-20) BUN 21 H (9-16) mg/dL Creatinine 3.14 H (0.5-1.4) mg/dL Estim Creat Clear Calc 18.1 Estimated GFR 20 Random Glucose 83 (60-115) mg/dL Lactic Acid 0.9 (0.5-2.0) mmol/L Calcium 8.9 (8.4-10.2) mg/dL Magnesium 1.8 (1.6-2.6) mg/dL Total Bilirubin 0.4 (0.0-1.0) mg/dL AST 29 (5-37) U/L ALT 6 (0-40) U/L Alkaline Phosphatase 136 H (39-117) U/L Total Protein 7.1 (6.5-8.0) g/dL Albumin 3.2 L (3.5-5.0) g/dL Discharge Plan Discharge Clinical Impression: Dehiscence of wound Patient Disposition: Home, Self-Care Additional Instructions: All of your screening labs were at your baseline, the CT scan of the right stump revealed no infection. You have a poorly healing wound that was packed and dressed. Continue to take your doxycycline that was already prescribed, make sure to complete the course of antibiotic. Watch for signs of infection which would include new redness, swelling, pus draining from the site or fever. If you develop any of these symptoms, seek medical attention. Follow up with Dr. Cannon in 2 weeks. Prescriptions: No Action (DME) PleurX catheter drainage kits 1000cc kits See Rx Instructions .Route .MEDSUPPLY Qty: 10 6RF Rx Instructions: As directed atorvastatin 40 mg tablet 40 mg PO SUTUTHSA@0900 allopurinol 100 mg tablet 100 mg PO MOWEFR@1600 Rx Instructions: GIVE AFTER DIALYSIS furosemide 80 mg tablet 80 mg PO SUTUTHSA@0900 omeprazole 20 mg capsule,delayed release(DR/EC) 20 mg PO DAILY@0630 doxazosin 4 mg tablet 4 mg PO BEDTIME Velphoro 500 mg tablet,chewable 500 mg PO TIDWM insulin lispro 100 unit/mL insulin pen See Rx Instructions .ROUTE .COMPLEX Rx Instructions: 1 sliding scale dose subcutaneously TIDAC on SUTUTHSA;200-249 - 2 UNITS 250-299 4 UNITS, 300-349 6 UNITS 350-439 8 UNITS 400+ CALL aspirin 81 mg tablet,delayed release (DR/EC) 81 mg PO SUTUTHSA@0900 pregabalin 75 mg capsule 75 mg PO TID atorvastatin 40 mg tablet 40 mg PO MOWEFR@1600 aspirin 81 mg Tablet,Delayed Release (Dr/Ec) 81 mg PO MOWEFR@1600 furosemide 80 mg tablet 80 mg PO MOWEFR@1600 losartan 25 mg tablet 25 mg PO MOWEFR@1600 Trelegy Ellipta 100-62.5-25 mcg Blister With Device 1 inh INHALATION DAILY losartan 25 mg tablet 25 mg PO SUTUTHSA@0900 Protocol: Hold for SBP< HOLD for SBP < : 90 insulin glargine [Lantus Solostar U-100 Insulin] 100 unit/mL (3 mL) insulin pen 22 unit subcut BEDTIME carvedilol 12.5 mg Tablet 12.5 mg PO BID Rx Instructions: must administer with a meal/food acetaminophen 500 mg Tablet 1,000 mg PO Q8H PRN (Reason: Pain) amlodipine 10 mg Tablet 10 mg PO DAILY doxycycline monohydrate 100 mg Capsule 100 mg PO BID Rx Instructions: END DATE: 05/27/24 docusate sodium 100 mg Capsule 100 mg PO DAILY calcium carbonate [Calcium 500] 500 mg calcium (1,250 mg) Tablet,Chewable 500 mg PO TID insulin lispro [Humalog U-100 Insulin] 100 unit/mL Solution See Rx Instructions .ROUTE .COMPLEX Rx Instructions: 1 sliding scale dose subcutaneously twice daily with meals on MOWEFR; 200-249 - 2 UNITS 250-299 4 UNITS, 300-349 6 UNITS 350-439 8 UNITS 400+ CALL levetiracetam [Keppra] 1,000 mg Tablet 1,000 mg PO BID tramadol 25 mg Tablet 25 mg PO Q6H PRN (Reason: Severe Pain (Scale Score 7-10)) Rx Instructions: END DATE: 06/03/24 doxycycline monohydrate 100 mg capsule 100 mg PO DAILY 10 Days Qty: 10 0RF Referrals: Baltazar Cannon MD [Physician] - (f/u in 2 weeks) Print Language: Japanese
[2024-05-31 18:13] VITALS: BP 195/77; PULSE 63; RESP 13; TEMP 36.7; O2SAT 96
[2024-05-31 18:15] LABS: Alkaline Phosphatase 136 U/L (39-117)
[2024-05-31 19:17] VITALS: BP 207/84; PULSE 68
[2024-05-31] MEDS: Labetalol HCL 100 MG/20 ML VIAL 20 MG IVPUSH (19:17)
[2024-05-31] MEDS: Dextrose 50 % 25 GM/50 ML SYRINGE IVPUSH (19:27)
[2024-05-31 20:17] VITALS: BP 209/78; PULSE 63
[2024-05-31] MEDS: Labetalol HCL 100 MG/20 ML VIAL 30 MG IVPUSH (20:17)
[2024-05-31 20:51] VITALS: BP 190/80; PULSE 60; RESP 13; TEMP 36.7; O2SAT 95
[2024-05-31] MEDS: carvediloL 12.5 MG TABLET PO (21:51)
[2024-05-31] MEDS: Losartan Potassium 25 MG TABLET PO (21:51)
[2024-05-31] MEDS: amLODIPine Besylate 10 MG TABLET PO (21:51)
--- NOTE | 2024-05-31 23:14 | PC.NURSE ---
pt ate turkey sandwich and cup of water. KYLAH Billingsley packed/dressed right AKA wound.
[2024-06-01 01:42] VITALS: BP 166/66; PULSE 70; RESP 16; TEMP 37.2; O2SAT 93
[2024-06-01 01:45] VITALS: BP 166/66; PULSE 70; RESP 16; TEMP 37.2; O2SAT 93
[2024-06-01 02:01] LABS: Glucose, Whole Blood 133 mg/dL (60-115)
[2024-06-01 02:01] LABS: Glucose, Whole Blood 61 mg/dL (60-115)
--- NOTE | 2024-06-01 03:14 | PC.NURSE ---
report given to Antonio at [facility]
[2024-06-02 15:09] LABS: Glucose, Whole Blood 76 mg/dL (60-115)
== END 2024-06-01 03:16 | disposition home or self-care (01) ==
PROVIDERS: Physician Assistant Medical; Emergency Provider Emergency Medicine; PCP Nurse Practitioner
DX: T87.81 Dehiscence of amputation stump (principal); Y83.5 Amputation of limb(s) as the cause of abnormal reaction of the patient, or of later complication, without mention of misadventure at the time of the procedure; Y92.9 Unspecified place or not applicable; E11.22 Type 2 diabetes mellitus with diabetic chronic kidney disease; I13.2 Hypertensive heart and chronic kidney disease with heart failure and with stage 5 chronic kidney disease, or end stage renal disease; I50.20 Unspecified systolic (congestive) heart failure; N18.6 End stage renal disease; Z99.2 Dependence on renal dialysis; Z79.85 Long-term (current) use of injectable non-insulin antidiabetic drugs; Z79.02 Long term (current) use of antithrombotics/antiplatelets; Z79.82 Long term (current) use of aspirin; Z79.899 Other long term (current) drug therapy
CPT/HCPCS: 36415; 73700; 80053; 82947; 83605; 83735; 85025; 87040; 96374; 96375; 96376; 99284; J1920

== ENCOUNTER → 2024-05-31 19:22 | Outpatient (BNV) | payer MEDICARE, MEDICAID, SELFPAY | PROVIDERS: Emergency Provider Emergency Medicine; PCP Nurse Practitioner; Visit Provider Radiology Diagnostic Radiology | DX: L08.9 Local infection of the skin and subcutaneous tissue, unspecified (principal) | CPT/HCPCS: 73700 ==

== ENCOUNTER 2024-06-06 13:51 | Outpatient (AMB) | payer MEDICARE, MEDICAID, SELFPAY ==
--- NOTE | 2024-06-06 13:52 | A.OFFVIS_ITS ---
Intake Visit Reasons: Urgent , moved from 06/13 follow up amp Intake Note: follow up Right BKA non-healing incision that keeps bleeding. Pt is at [facility] who called wanting pt to be seen sooner. Dialysis M, W and Monday Tool Pusher Required: No Accompanied by: Son Allergies Iodinated Contrast Media [Contrast Dye] Allergy (Severe, Verified 06/06/24 13:59) Facial Swelling hydralazine Adverse Reaction (Severe, Verified 06/06/24 13:59) vasculitis HPI HPI Urgent , moved from 06/13 follow up amp: Details: 61-year-old gentleman who had undergone AKA and subsequently ended up in a facility and presents for follow-up. This was an urgent follow-up requested by the facility as the stump has started to break down. The lateral aspect has a dry eschar and there was significant drainage. He was actually in the interim seen in an emergency room we scheduled him for outpatient follow-up. He appears to be doing relatively well otherwise. He now presents for routine follow-up. Of note he is being maintained on doxycycline. It appears that he is no longer putting tooth paste on the incision line. [facility] Medical History Above knee amputation of right lower extremity Left ventricular systolic dysfunction (LVSD) PVD (peripheral vascular disease) Postop check Acute pericardial effusion ESRD needing dialysis Right sided weakness Dehiscence of wound Peripheral arterial disease Cellulitis of right foot Hypertension Dry gangrene HFrEF (heart failure with reduced ejection fraction) ESRD (end stage renal disease) Chronic combined systolic and diastolic CHF (congestive heart failure) Chronic pericardial effusion Arthritis Asthma Restless leg syndrome Acute on chronic systolic and diastolic heart failure, NYHA class 3 Anemia ESRD (end stage renal disease) Occlusive thrombus Pulmonary edema ROBERT (obstructive sleep apnea) Type 2 diabetes mellitus Hyperlipidemia Hypertension A-V fistula ESRD on dialysis Falling Surgical History Status post creation of pericardial window Postop check Hx of right BKA Status post transmetatarsal amputation of right foot History of transmetatarsal amputation of foot History of surgery H/O colonoscopy Recurrent pleural effusion Pleural effusion on right (07/13/23) Family History Father No problems noted. Mother No problems noted. Social History Household Members: Children Household Members Other:: son Housing: Apartment Are you a primary manager long term care to a significant other at home: No Do you presently have visiting nurse or other home services: No Alcohol intake: former Comment: n Patient Tobacco Use Status: Former Tobacco user Tobacco use type: Cigarette Second Hand Smoke Exposure: No Advance Directives Date on File: 10/04/23 service: No Review of Systems Const All systems reviewed & are unremarkable except as noted in HPI and below Reports no additional complaints ENT Reports Normal hearing present Card Denies chest pain, Denies chest pain at rest, Denies chest pain with activity and Denies pedal edema Resp Denies cough GI Denies abdominal pain Musc Denies abnormal gait, Denies muscle cramps and Denies radiating pain into limb Skin/Breast Denies skin ulcer and Denies wounds Neuro Reports Normal hearing present and Denies abnormal gait Psych Reports no additional complaints Physical Exam Const General: cooperative, healthy appearing and comfortable Orientation/consciousness: oriented to person, oriented to place and oriented to time HEENT Head: Yes normal to inspection Neck Neck: Yes normal visual inspection Carotids: no bruits Chest Chest palpation & inspection: normal inspection of the chest Resp Effort & Inspection: normal respiratory effort and able to speak in complete sentences Auscultation: clear to auscultation bilaterally, no crackles, no rales, no rhonchi and no wheezes Cardio Rate: regular rate Rhythm: regular rhythm Heart sounds: S1 normal heart sound present and S2 normal heart sound present Bruits: no carotid bruits Peripheral pulses: Peripheral pulses 2+ throughout GI Inspection: Yes normal to inspection Skin Other: Medial aspect appears to be healing lateral aspect a proximally a 5 x 5 cm dry eschar with open areas in boggy tissue underlying. Wounds: no wounds Hair: normal Neuro General: oriented to person, oriented to place and oriented to time Cranial nerves: Yes CN's II-XII intact bilaterally and Yes Normal hearing present Cognition (Neuro): normal cognition Motor exam (neuro): 5/5 motor strength present throughout Extrem Other: venous exam: No significant superficial varicosities or spider telangiectasias, minimal edema General: No clubbing, No cyanosis and No edema Psych Appearance: grossly normal Mental Status: mental status grossly normal Speech and movement: Normal speech and movement present Office Procedures Vascular Office Procedure Details Details: Wound debridement note: Preoperative diagnosis: Nonhealing right AKA stump Postoperative diagnosis: Nonhealing right AKA stump Procedure: Excisional debridement into muscle Anesthesia: Local 5 cc of lidocaine Estimated blood loss: Minimal Pre-procedure measurement and appearance: 5.5 x 5.5 x 0.1 cm dry eschar with underlying boggy tissue Postprocedure measurement and appearance: 5.6 x 5.6 by 0.3 cm clean underlying muscle Procedure in detail: Excisional debridement of the AKA stump was carried out.. Necrotic devitalized and nonviable tissue was removed. We debrided into muscle using Metzenbaum scissors pickups and a 15 blade.. Wound was thoroughly irrigated. At the conclusion wound appeared viable with a reasonable granulation base.. Clean and sterile dressing was applied. Patient tolerated the procedure well. Instructions were given to the patient. Follow-up was suggested. This note is constructed using voice recognition software. While every effort has been made to ensure accuracy, estimator jewelry errors may have been included. Thank you for allowing me to participate in the care of your patient. Yours sincerely, Baltazar Cannon MD, FACS, R.P.V.I. [id number] Debridement, muscle and or fascia (lst 20 sq cm or less) All charges added?: Procedure code (CPT) selection complete Assessment & Plan Assessment & Plan (1) AKA stump complication: Code(s): T87.9 - Unspecified complications of amputation stump Category: Medical Plan: In short patient has a nonhealing right AKA stump. We will continue to do local debridements and will have patient follow-up with us in approximately 1 week's time. Continue with antibiotics p.o.. Thank you for allowing us to assist in his care. If there are any questions or concerns please do not hesitate to contact us. Coding Level of Care Code Est Pt Level 4 (39920) Diagnoses AKA stump complication T87.9
--- OUTSIDE RECORDS SUMMARY | 2024-06-06 15:17 | XMS_ITS ---
[facility] Care Plan Created on: June 01, 2024 Beau Marie : 1955 Sex: Male Author Organization [facility]. Address [address] [place] [address] [address] [place] [address] Phone Health Concerns Health Status [facility] Health Concerns None
--- OUTSIDE RECORDS SUMMARY | 2024-06-06 15:17 | XMS_ITS | Encounter Summary ---
Author Organization [facility] Address [address] [facility] [address] [facility] [address] [address] [place] [address] Phone Care Team Providers Care Wildlife Conservationist Name Role Phone Jade Lewis MD Primary Care Provider [phone] Reason for Visit * Reason Onset Date Comments Med Refill 04/19/2022 Encounter Details Date Type Department Care Team (Late st Contact Info) Description 04/19/2022 Refill [facility] [address] [place] [id number] Loida Madsen Social History Tobacco Use Types [...] on filedocumented in this encounter Care Teams Wildlife Conservationist Relationship Specialty Start Date End Date Jade Lewis MD [address] [place] [id number] PCP - General Internal Medicine 04/25/22 documented as of this encounter
--- OUTSIDE RECORDS SUMMARY | 2024-06-06 15:17 | XMS_ITS ---
[facility] Care Plan Created on: June 01, 2024 Beau Marie : 1955 Sex: Male Author Organization [facility]. Address [address] [place] [address] [address] [place] [address] Phone Health Concerns Health Status [facility] Health Concerns None
--- OUTSIDE RECORDS SUMMARY | 2024-06-06 15:17 | XMS_ITS | Encounter Summary ---
Author Organization [facility] Address [address] [place] [address] Care Team Providers Care Shot Examiner Name Role Phone Cass Turcios MD Primary Care Provider [phone] Encounter Details Date Type Department Care Team (Late st Contact Info) Description 06/06/2024 Lab Requisition [facility] - Main Lab [address] [facility] [place] [address] Laurence Florence MD [address] [place] [id number] Cellulitis of right lower limb; End stage renal disease (CMS/HCC) Social History [...] for your loved ones. For example, child development instructor or elderly care for an older adult? [...] Associated Diagnosis Comments COMPLETE BLOOD COUNT Routine 06/06/2024 5:35 AM EDT Cellulitis of right lower limb End stage renal disease (CMS/HCC) BASIC METABOLIC PANEL Routine 06/06/2024 5:35 AM EDT Cellulitis of right lower limb End stage renal disease (CMS/HCC) documented in this encounter Results * (ABNORMAL) Basic metabolic panel (06/06/2024 5:35 AM EDT) Sodium 139 133 - 145 mmol/L LAB CHEMISTRY METHOD 06/06/2024 8:59 AM [facility] Potassium 4.3 3.5 - 5.5 mmol/L LAB CHEMISTRY METHOD 06/06/2024 8:59 AM [facility] Chloride 106 96 - 110 mmol/L LAB CHEMISTRY METHOD 06/06/2024 8:59 AM [facility] CO2 27 21 - 32 mmol/L LAB CHEMISTRY METHOD 06/06/2024 8:59 AM [facility] Anion Gap 6 3 - 11 LAB CHEMISTRY METHOD 06/06/2024 8:59 AM [facility] Glucose 162(H) 70 - 100 mg/dL LAB CHEMISTRY METHOD 06/06/2024 8:59 AM [facility] BUN 28(H) 5 - 25 mg/dL LAB CHEMISTRY METHOD 06/06/2024 8:59 AM [facility] Creatinine 3.78(H) 0.70 - 1.30 mg/dL LAB CHEMISTRY METHOD 06/06/2024 8:59 AM [facility] eGFR 17(L) >=60 mL/min/1. 73m2 LAB CHEMISTRY METHOD 06/06/2024 8:59 AM [facility] Comment:Calculation based on the??Chronic Kidney Disease Epidemiology Collaboration (CKD-EPI) equation refit??without adjustment for race. BUN/Creatinine Ratio 7.4 LAB CHEMISTRY METHOD 06/06/2024 8:59 AM [facility] Calcium 9.1 8.5 - 10.5 mg/dL LAB CHEMISTRY METHOD 06/06/2024 8:59 AM [facility] Blood Venous blood specimen / Unknown Venipuncture / Unknown 06/06/2024 5:35 AM EDT 06/06/2024 8:10 AM EDT us Laurence Florence MD LAB BLOOD ORDERABLES Final Resu lt [facility] [address] [place] [address], [place] [phone] * (ABNORMAL) Complete blood count (06/06/2024 5:35 AM EDT) [facility] Signature WBC 9.3 4.8 - 10.8 K/mcL LAB HEMETOLOGY METHOD 06/06/2024 8:35 AM EDT [facility] RBC 3.20(L) 4.50 - 5.50 M/mcL LAB HEMETOLOGY METHOD 06/06/2024 8:35 AM EDT [facility] Hemoglobin 7.6(L) 13.5 - 17.5 g/dL LAB HEMETOLOGY METHOD 06/06/2024 8:35 AM EDT [facility] Hematocrit 26.2(L) 42.0 - 54.0 % LAB HEMETOLOGY METHOD 06/06/2024 8:35 AM EDT [facility] MCV 80.9 79.0 - 98.0 FL LAB HEMETOLOGY METHOD 06/06/2024 8:35 AM T [facility] MCH 23.5(L) 27.0 - 32.0 pcg LAB HEMETOLOGY METHOD 06/06/2024 8:35 AM EDT [facility] MCHC 29.0(L) 32.0 - 37.0 g/dL LAB HEMETOLOGY METHOD 06/06/2024 8:35 AM EDT [facility] RDW 16.8(H) 11.0 - 15.0 % LAB HEMETOLOGY METHOD 06/06/2024 8:35 AM EDT [facility] Platelets 264 130 - 400 K/mcL LAB HEMETOLOGY METHOD 06/06/2024 8:35 AM EDT [facility] MPV 12.3(H) 7.0 - 11.0 FL LAB HEMETOLOGY METHOD 06/06/2024 8:35 AM EDT [facility] NRBC 0.0 <1.0 % [facility] METHOD 06/06/2024 8:35 AM EDT [facility] NRBC Absolute 0.00 <0.10 K/mcL LAB HEMETOLOGY METHOD 06/06/2024 8:35 AM EDT [facility] Blood Venous blood specimen / Unknown Venipuncture / Unknown 06/06/2024 5:35 AM EDT 06/06/2024 8:10 AM EDT us Laurence Florence MD LAB BLOOD ORDERABLES Final Resu lt [facility] [address] [place] [address], documented in this encounter Visit Diagnoses Diagnosis Cellulitis of right lower limb End stage renal disease (CMS/HCC) End stage renal disease documented in this encounter Care Teams Shot Examiner Relationship Specialty Start Date End Date Cass Turcios MD [address] [place] [id number] [id number] [place] [address] PCP - General Geriatric Medicine 04/02/24 documented as of this encounter
--- OUTSIDE RECORDS SUMMARY | 2024-06-06 15:17 | XMS_ITS | Clinical Summary ---
Author Organization [facility] Address [address] [place] [address] Phone Care Team Providers Care Reo Asset Manager Name Role Phone Cass Turcios MD Primary Care Provider [phone] Allergies No known active allergies Medications Ventolin [...] Encounters Date Type Department Care Team Description 06/06/2024 Lab Requisition [facility] [address] [place] [address] Laurence Florence MD Cellulitis of right lower limb; End stage renal disease ([facility]/HCC) 05/31/2024 Lab Requisition [facility] [address] [place] [address] Laurence Florence MD End stage renal disease ([facility]); Anemia, unspecified 05/30/2024 Lab Requisition [facility] [address] [place] [address] Laurence Florence MD Chronic respiratory failure with hypoxia ([facility]); Encounter for orthopedic aftercare following surgical amputation; Encounter for surgical aftercare following surgery on the circulatory system; Peripheral vascular disease, unspecified ([facility]) 05/30/2024 Lab Requisition [facility] [address] [place] [phone] Laurence Florence MD Chronic respiratory failure with hypoxia ([facility]/HCC); Encounter for orthopedic aftercare following surgical amputation; Encounter for surgical aftercare following surgery on the circulatory system; Peripheral vascular disease, unspecified ([facility]/HCC) 05/28/2024 Lab Requisition [facility] [address] [place] [phone] Laurence Florence MD Anemia, unspecified; End stage renal disease ([facility]); Unspecified asthma, uncomplicated 05/24/2024 Lab Requisition [facility] [address] [place] [phone] Laurence Florence MD Chronic combined systolic (congestive) and diastolic (congestive) heart failure ([facility]/HCC); Type 2 diabetes mellitus without complications ([facility]); End stage renal disease ([facility]/HCC) 05/21/2024 Lab Requisition [facility] [address] [place] [phone] Laurence Florence MD Chronic combined systolic (congestive) and diastolic (congestive) heart failure ([facility]/HCC); End stage renal disease ([facility]/HCC) 05/20/2024 Lab Requisition [facility] [address] [place] [phone] Laurence Florence MD Elevated white blood cell count, unspecified 05/18/2024 Lab Requisition [facility] [address] [place] [phone] Elsy Christina PA Unspecified systolic (congestive) heart failure ([facility]/HCC); Type 2 diabetes mellitus without complications ([facility]/HCC); End stage renal disease ([facility]/HCC) 05/17/2024 Lab Requisition [facility] [address] [place] [phone] Laurence Florence MD Type 2 diabetes mellitus without complications ([facility]/HCC); End stage renal disease ([facility]) 04/02/2024 Lab Requisition [facility] [address] [place] [phone] Cass Turcios MD End stage renal disease ([facility]) 03/25/2024 7:29 AM EST - 03/27/2024 6:55 PM EST Hospital Encounter [facility] [address] [place] [phone] Noman Conteh MD Bukalo, Nermina, MD Japaridze, Anna, MD Acute kidney injury superimposed on chronic kidney disease ([facility]) (Primary Dx); Hyperkalemia; Urinary tract infection without hematuria, site unspecified Discharge Disposition: [facility] Facility 03/25/2024 Lab Requisition [facility] [address] [place] [phone] Cass Turcios MD Anemia, unspecified; Chronic diastolic (congestive) heart failure ([facility]); Other pericardial effusion (noninflammatory); End stage renal disease ([facility]) from Last 3 Months Surgical History Surgery Date Site/Laterality Comments TOE AMPUTATION IR DIALYSIS CATH INSERT VASCULAR ACCESS Medical History Medical History Date Comments ESRD (end stage renal disease) on dialysis ([facility]/ [facility]) MWF Hypertension Hyperlipidemia Gouty arthritis Diabetes mellitus ([facility]) GERD (gastroesophageal reflux disease) COPD (chronic obstructive pulmonary disease) ([facility]) Social History Tobacco Use Types Packs/Day Years [...] your loved ones. For example, child care associate or elderly care for an older adult? [...] - Risk 2-dose series) 1975 RSV Immunization Adult Patients (1 - Risk 60-74 years 1-dose series) [...] 03/27/2025 03/27/2024 Hypertension/CHF/CAD Annual BMP Blood Test 06/06/2025 06/06/2024, 05/31/2024, 05/30/2024, Additional history exists Cholesterol Screening (Lipid Panel) [...] Associated Diagnosis Comments BASIC METABOLIC PANEL Routine 06/06/2024 5:35 AM EDT Cellulitis of right lower limb End stage renal disease ([facility]/HCC) COMPLETE BLOOD COUNT Routine 06/06/2024 5:35 AM EDT Cellulitis of right lower limb End stage renal disease ([facility]/HCC) CBC WITH AUTO DIFFERENTIAL Routine 05/31/2024 6:09 AM EDT End stage renal disease ([facility]) Anemia, unspecified BASIC METABOLIC PANEL Routine 05/31/2024 6:09 AM EDT End stage renal disease ([facility]) Anemia, unspecified CBC AND DIFFERENTIAL Routine 05/31/2024 6:09 AM EDT End stage renal disease ([facility]) Anemia, unspecified CULTURE BLOOD Routine 05/30/2024 7:41 AM EDT Chronic respiratory failure with hypoxia Encounter for orthopedic aftercare following surgical amputation Encounter for surgical aftercare following surgery on the circulatory system Peripheral vascular disease, unspecified ([facility]) LACTATE Routine 05/30/2024 7:36 AM EDT Chronic [...] Months Results * (ABNORMAL) Complete blood count (06/06/2024 5:35 AM EDT) Only the most recent of7 resultswithin the time period is included. WBC 9.3 4.8 - 10.8 K/mcL LAB HEMETOLOGY METHOD 06/06/2024 8:[address] [facility] RBC 3.20(L) 4.50 - 5.50 M/mcL LAB HEMETOLOGY METHOD 06/06/2024 8:[address] [facility] Hemoglobin 7.6(L) 13.5 - 17.5 g/dL LAB HEMETOLOGY METHOD 06/06/2024 8:[address] [facility] Hematocrit 26.2(L) 42.0 - 54.0 % LAB HEMETOLOGY METHOD 06/06/2024 8:[address] [facility] MCV 80.9 79.0 - 98.0 FL LAB HEMETOLOGY METHOD 06/06/2024 8:[address] [facility] MCH 23.5(L) 27.0 - 32.0 pcg LAB HEMETOLOGY METHOD 06/06/2024 8:[address] [facility] MCHC 29.0(L) 32.0 - 37.0 g/dL LAB HEMETOLOGY METHOD 06/06/2024 8:[address] [facility] RDW 16.8(H) 11.0 - 15.0 % LAB HEMETOLOGY METHOD 06/06/2024 8:[address] [facility] Platelets 264 130 - 400 K/mcL LAB HEMETOLOGY METHOD 06/06/2024 8:[address] [facility] MPV 12.3(H) 7.0 - 11.0 FL LAB HEMETOLOGY METHOD 06/06/2024 8:35 AM EDT [facility] NRBC 0.0 <1.0 % LAB [facility] 06/06/2024 8:35 AM EDT [facility] NRBC Absolute 0.00 <0.10 K/mcL [facility] 06/06/2024 8:35 AM EDT [facility] Blood Venous blood specimen / Unknown Venipuncture / Unknown 06/06/2024 5:35 AM EDT 06/06/2024 8:10 AM EDT us Laurence Florence MD LAB BLOOD ORDERABLES Final Resu lt [facility] [address] [place] [address], * (ABNORMAL) Basic metabolic panel (06/06/2024 5:35 AM EDT) Only the most recent of11 resultswithin the time period is included. Sodium 139 133 - 145 mmol/L LAB CHEMISTRY METHOD 06/06/2024 8:[address] [facility] Potassium 4.3 3.5 - 5.5 mmol/L LAB CHEMISTRY METHOD 06/06/2024 8:[address] [facility] Chloride 106 96 - 110 mmol/L LAB CHEMISTRY METHOD 06/06/2024 8:[address] [facility] CO2 27 21 - 32 mmol/L LAB CHEMISTRY METHOD 06/06/2024 8:[address] [facility] Anion Gap 6 3 - 11 LAB CHEMISTRY METHOD 06/06/2024 8:[address] [facility] Glucose 162(H) 70 - 100 mg/dL LAB CHEMISTRY METHOD 06/06/2024 8:59 AM T [facility] BUN 28(H) 5 - 25 mg/dL LAB CHEMISTRY METHOD 06/06/2024 8:59 AM EDT [facility] Creatinine 3.78(H) 0.70 - 1.30 mg/dL LAB CHEMISTRY METHOD 06/06/2024 8:59 AM EDT [facility] eGFR 17(L) >=60 mL/min/1. 73m2 LAB CHEMISTRY METHOD 06/06/2024 8:59 AM EDT [facility] Comment:Calculation based on the??Chronic Kidney Disease Epidemiology Collaboration (CKD-EPI) equation refit??without adjustment for race. BUN/Creatinine Ratio 7.4 LAB CHEMISTRY METHOD 06/06/2024 8:59 AM EDT [facility] Calcium 9.1 8.5 - 10.5 mg/dL LAB CHEMISTRY METHOD 06/06/2024 8:59 AM EDT [facility] Blood Venous blood specimen / Unknown Venipuncture / Unknown 06/06/2024 5:35 AM EDT 06/06/2024 8:10 AM EDT us Laurence lForence MD LAB BLOOD ORDERABLES Final Resu lt [facility] [address] [place] [address], * (ABNORMAL) CBC auto differential (05/31/2024 6:09 AM EDT) Only the most recent of6 resultswithin the time period is included. WBC 10.9(H) 4.8 - 10.8 K/mcL LAB HEMETOLOGY METHOD 05/31/2024 10:13 AM EDT [facility] RBC 3.20(L) 4.50 - 5.50 M/mcL LAB HEMETOLOGY METHOD 05/31/2024 10:13 AM EDT [facility] Hemoglobin 7.7(L) 13.5 - 17.5 g/dL LAB HEMETOLOGY METHOD 05/31/2024 10:[address] [facility] Hematocrit 26.1(L) 42.0 - 54.0 % LAB HEMETOLOGY METHOD 05/31/2024 10:[address] [facility] MCV 81.8 79.0 - 98.0 FL LAB HEMETOLOGY METHOD 05/31/2024 10:[address] [facility] MCH 24.1(L) 27.0 - 32.0 pcg LAB HEMETOLOGY METHOD 05/31/2024 10:[address] [facility] MCHC 29.5(L) 32.0 - 37.0 g/dL LAB HEMETOLOGY METHOD 05/31/2024 10:[address] [facility] RDW 17.8(H) 11.0 - 15.0 % LAB HEMETOLOGY METHOD 05/31/2024 10:[address] [facility] Platelets 227 130 - 400 K/mcL LAB HEMETOLOGY METHOD 05/31/2024 10:[address] [facility] MPV 10.6 7.0 - 11.0 FL LAB HEMETOLOGY METHOD 05/31/2024 10:[address] [facility] NRBC 0.0 <1.0 % LAB HEMETOLOGY METHOD 05/31/2024 10:[address] [facility] NRBC Absolute 0.00 <0.10 K/mcL LAB HEMETOLOGY METHOD 05/31/2024 10:[address] [facility] Neutrophils Relative 69.5 % LAB HEMETOLOGY METHOD 05/31/2024 10:[address] [facility] Lymphocytes Relative 19.2 % LAB HEMETOLOGY METHOD 05/31/2024 10:[address] [facility] Monocytes Relative 8.4 % LAB HEMETOLOGY METHOD 05/31/2024 10:13 AM EDT [facility] Eosinophils Relative 1.8 % LAB HEMETOLOGY METHOD 05/31/2024 10:13 AM EDT [facility] Basophils Relative 0.5 % LAB HEMETOLOGY METHOD 05/31/2024 10:13 AM EDT [facility] Immature Granulocytes Relative 0.6 % LAB HEMETOLOGY METHOD 05/31/2024 10:13 AM EDT [facility] Neutrophils Absolute 7.60(H) 1.50 - 7.00 K/mcL LAB HEMETOLOGY METHOD 05/31/2024 10:13 AM EDT [facility] Lymphocytes Absolute 2.10 1.00 - 5.00 K/mcL LAB HEMETOLOGY METHOD 05/31/2024 10:13 AM EDT [facility] Monocytes Absolute 0.92 0.20 - 1.00 K/mcL LAB HEMETOLOGY METHOD 05/31/2024 10:13 AM EDT [facility] Eosinophils Absolute 0.20 0.00 - 0.50 K/mcL LAB HEMETOLOGY METHOD 05/31/2024 10:13 AM EDT [facility] Basophils Absolute 0.05 0.00 - 0.20 K/mcL LAB HEMETOLOGY METHOD 05/31/2024 10:13 AM T [facility] Immature Granulocytes Absolute 0.07(H) 0.00 - 0.03 K/mcL LAB HEMETOLOGY METHOD 05/31/2024 10:13 AM EDT [facility] Blood Venous blood specimen / Unknown Venipuncture / Unknown 05/31/2024 6:09 AM EDT 05/31/2024 9:24 AM EDT us Laurence Florence MD LAB BLOOD ORDERABLES Final Resu lt [facility] [address] [place] [address], [place] [phone] * Culture blood (05/30/2024 7:41 AM EDT) Only the most recent of3 resultswithin the time period is included. Culture, Blood No growth at 5 days LAB MICROBIOLOGY METHOD 06/04/2024 9:01 AM EDT [facility] Blood Venipuncture / Unknown 05/30/2024 7:41 AM EDT 05/30/2024 8:14 AM EDT us Laurence Florence MD LAB MICROBIOLOGY - GENERAL ORDE RABLES Final Result Performing Organization Address [facility]/ZIP Co de Phone Number [facility] [address] [place] [address], [place] [phone] * (ABNORMAL) Sedimentation rate (05/30/2024 7:36 AM EDT) [facility] Sed Rate >130(H) 0 - 20 mm/hr LAB HEMETOLOGY METHOD 05/30/2024 8:57 AM EDT [facility] Blood Venous blood specimen / Unknown Venipuncture / Unknown 05/30/2024 7:36 AM EDT 05/30/2024 8:11 AM EDT Narrative [facility] - 05/30/2024 8:57 AM EDT Rechecked. us Laurence Florence MD LAB BLOOD ORDERABLES Final Resu lt Performing Organization Address City/[facility]/ZIP Co de Phone Number [facility] [address] [place] [address], [place] [phone] * (ABNORMAL) C-reactive protein (05/30/2024 7:36 AM EDT) [facility] C-Reactive Protein 11.60(H) <=0.50 mg/dL LAB CHEMISTRY METHOD 05/30/2024 8:51 AM EDT [facility] Blood Venous blood specimen / Unknown Venipuncture / Unknown 05/30/2024 7:36 AM EDT 05/30/2024 8:11 AM EDT us Laurence Florence MD LAB BLOOD ORDERABLES Final Resu lt Performing Organization Address [facility]/ZIP Co de Phone Number [facility] [address] [place] [address], [place] [phone] * Lactate (05/30/2024 7:36 AM EDT) Lactate 0.6 0.4 - 2.0 mmol/L LAB CHEMISTRY METHOD 05/30/2024 8:47 AM EDT [facility] Blood Venous blood specimen / Unknown Venipuncture / Unknown 05/30/2024 7:36 AM EDT 05/30/2024 8:11 AM EDT us Laurence Florence MD LAB BLOOD ORDERABLES Final Resu lt Performing Organization Address [facility] Co de Phone Number [facility] [address] [place] [address], [place] [phone] * (ABNORMAL) Comprehensive metabolic panel (05/30/2024 7:36 AM EDT) Only the most recent of4 resultswithin the time period is included. Sodium 140 133 - 145 mmol/L LAB CHEMISTRY METHOD 05/30/2024 9:08 AM EDT [facility] Potassium 4.2 3.5 - 5.5 mmol/L LAB CHEMISTRY METHOD 05/30/2024 9:08 AM EDT [facility] Chloride 104 96 - 110 mmol/L LAB CHEMISTRY METHOD 05/30/2024 9:08 AM EDT [facility] CO2 28 21 - 32 mmol/L LAB CHEMISTRY METHOD 05/30/2024 9:08 AM EDT [facility] Anion Gap 8 3 - 11 LAB CHEMISTRY METHOD 05/30/2024 9:[address] [facility] Glucose 77 70 - 100 mg/dL LAB CHEMISTRY METHOD 05/30/2024 9:[address] [facility] BUN 35(H) 5 - 25 mg/dL LAB CHEMISTRY METHOD 05/30/2024 9:[address] [facility] Creatinine 5.30(H) 0.70 - 1.30 mg/dL LAB CHEMISTRY METHOD 05/30/2024 9:[address] [facility] eGFR 11(L) >=60 mL/min/1. 73m2 LAB CHEMISTRY METHOD 05/30/2024 9:[address] [facility] Comment:Calculation based on the??Chronic Kidney Disease Epidemiology Collaboration (CKD-EPI) equation refit??without adjustment for race. BUN/Creatinine Ratio 6.6 LAB CHEMISTRY METHOD 05/30/2024 9:[address] [facility] Calcium 9.0 8.5 - 10.5 mg/dL LAB CHEMISTRY METHOD 05/30/2024 9:[address] [facility] AST (SGOT) 10 10 - 42 unit/L LAB CHEMISTRY METHOD 05/30/2024 9:[address] [facility] ALT (SGPT) 13 10 - 60 unit/L LAB CHEMISTRY METHOD 05/30/2024 9:[address] [facility] Alkaline Phosphatase 141(H) 42 - 121 unit/L LAB CHEMISTRY METHOD 05/30/2024 9:[address] [facility] Total Protein 6.3 6.0 - 8.0 g/dL LAB CHEMISTRY METHOD 05/30/2024 9:[address] [facility] Albumin 2.5(L) 3.2 - 5.0 g/dL LAB CHEMISTRY METHOD 05/30/2024 9:[address] [facility] Total Bilirubin 0.5 0.0 - 1.4 mg/dL LAB CHEMISTRY METHOD 05/30/2024 9:08 AM EDT [facility] Blood Venous blood specimen / Unknown Venipuncture / Unknown 05/30/2024 7:36 AM EDT 05/30/2024 8:11 AM EDT us Laurence Florence MD LAB BLOOD ORDERABLES Final Resu lt Performing Organization Address [facility]/ZIP Co de Phone Number [facility] [address] [place] [address], [place] [phone] * (ABNORMAL) Magnesium (05/29/2024 5:09 AM EDT) Only the most recent of3 resultswithin the time period is included. Pathologist [facility] Magnesium 1.8(L) 1.9 - 2.6 mg/dL LAB CHEMISTRY METHOD 05/29/2024 9:20 AM EDT [facility] Blood Venous blood specimen / Unknown Venipuncture / Unknown 05/29/2024 5:09 AM EDT 05/29/2024 8:42 AM EDT us Laurence Florence MD LAB BLOOD ORDERABLES Final Resu lt Performing Organization Address [facility] de Phone Number [facility] [address] [place] [address], [place] [phone] * (ABNORMAL) Renal function panel (05/29/2024 5:09 AM EDT) Pathologist [facility] Sodium 135 133 - 145 mmol/L LAB CHEMISTRY METHOD 05/29/2024 10:03 AM EDT [facility] Potassium 4.7 3.5 - 5.5 mmol/L LAB CHEMISTRY METHOD 05/29/2024 10:03 AM EDT [facility] Chloride 99 96 - 110 mmol/L LAB CHEMISTRY METHOD 05/29/2024 10:03 AM EDT [facility] CO2 27 21 - 32 mmol/L LAB CHEMISTRY METHOD 05/29/2024 10:[address] [facility] Anion Gap 9 3 - 11 LAB CHEMISTRY METHOD 05/29/2024 10:[address] [facility] Glucose 22(LL) 70 - 100 mg/dL LAB CHEMISTRY METHOD 05/29/2024 10:[address] [facility] BUN 60(H) 5 - 25 mg/dL LAB CHEMISTRY METHOD 05/29/2024 10:[address] [facility] Creatinine 7.71(H) 0.70 - 1.30 mg/dL LAB CHEMISTRY METHOD 05/29/2024 10:[address] [facility] eGFR 7(L) >=60 mL/min/1. 73m2 LAB CHEMISTRY METHOD 05/29/2024 10:[address] [facility] Comment:Calculation based on the??Chronic Kidney Disease Epidemiology Collaboration (CKD-EPI) equation refit??without adjustment for race. BUN/Creatinine Ratio 7.8 LAB CHEMISTRY METHOD 05/29/2024 10:[address] [facility] Albumin 2.4(L) 3.2 - 5.0 g/dL LAB CHEMISTRY METHOD 05/29/2024 10:[address] [facility] Calcium 8.7 8.5 - 10.5 mg/dL LAB CHEMISTRY METHOD 05/29/2024 10:[address] [facility] Phosphorus 4.7(H) 2.5 - 4.5 mg/dL LAB CHEMISTRY METHOD 05/29/2024 10:[address] [facility] Blood Venous blood specimen / Unknown Venipuncture / Unknown 05/29/2024 5:09 AM EDT 05/29/2024 8:42 AM EDT us Laurence Florence MD LAB BLOOD ORDERABLES Final Resu lt [facility] [address] [place] [address], [place] [phone] * (ABNORMAL) Hemoglobin A1c (05/18/2024 7:20 AM EDT) Only the most recent of2 resultswithin the time period is included. Pathologist [facility] Hemoglobin A1C 7.2(H) <6.5 % LAB CHEMISTRY METHOD 05/19/2024 12:06 PM EDT [facility] Mean Bld Glu Estim. 160 mg/dL LAB CHEMISTRY METHOD 05/19/2024 12:06 PM EDT [facility] Blood Venous blood specimen / Unknown Venipuncture / Unknown 05/18/2024 7:20 AM EDT 05/18/2024 9:58 AM EDT us Elsy MONTERO LAB BLOOD ORDERABLES Final Re sult Performing Organization Address City/[facility]/ZIP Co de Phone Number [facility] [address] [place] [address], * (ABNORMAL) POCT Glucose, blood (03/27/2024 4:55 PM EST) Only the most recent of10 resultswithin the time period is included. [facility] Glucose POCT 276(H) 70 - 100 mg/dL 03/27/2024 4:56 PM EST [facility] Blood Capillary blood specimen / Unknown 03/27/2024 4:55 PM EST 03/27/2024 4:57 PM EST us Marion Hernandez MD LAB POINT OF CARE TE ST DOCKED DEVICE UNSOLICITED RESULTS Final Result [facility] [address] [place] [address], * Lavender tube (03/26/2024 6:50 AM EST) [facility] Extra Tube Hold for add-ons. 03/26/2024 9:01 AM EST [facility] Comment:Auto resulted. Blood Venous blood specimen / Unknown 03/26/2024 6:50 AM EST 03/26/2024 7:01 AM EST us Marion Hernandez MD LAB BLOOD ORDERABLES Final Res ult [facility] [address] [place] [address], * Respiratory virus panel molecular study (03/25/2024 6:49 PM EST) Adenovirus Detection by PCR Not Detected Not Detected LAB MICROBIOLOGY METHOD 03/25/2024 8:14 PM [facility] Influenza A PCR Not Detected Not Detected LAB MICROBIOLOGY METHOD 03/25/2024 8:14 PM [facility] Influenza B PCR Not Detected Not Detected LAB MICROBIOLOGY METHOD 03/25/2024 8:14 PM [facility] Coronavirus 229E Not Detected Not Detected LAB MICROBIOLOGY METHOD 03/25/2024 8:14 PM [facility] Coronavirus HKU1 Not Detected Not Detected LAB MICROBIOLOGY METHOD 03/25/2024 8:14 PM [facility] Coronavirus OC43 Not Detected Not Detected LAB MICROBIOLOGY METHOD 03/25/2024 8:14 PM [facility] Coronavirus NL63 Not Detected Not Detected LAB MICROBIOLOGY METHOD 03/25/2024 8:14 PM EST [facility] Parainfluenza Virus 1 Not Detected Not Detected LAB MICROBIOLOGY METHOD 03/25/2024 8:14 PM [facility] Parainfluenza Virus 2 Not Detected Not Detected LAB MICROBIOLOGY METHOD 03/25/2024 8:14 PM [facility] Parainfluenza Virus 3 Not Detected Not Detected LAB MICROBIOLOGY METHOD 03/25/2024 8:14 PM [facility] Parainfluenza Virus 4 Not Detected Not Detected LAB MICROBIOLOGY METHOD 03/25/2024 8:14 PM EST [facility] RSV PCR Not Detected Not Detected LAB MICROBIOLOGY METHOD 03/25/2024 8:14 PM EST [facility] Human Metapneumovirus A and B Not Detected Not Detected LAB MICROBIOLOGY METHOD 03/25/2024 8:14 PM EST [facility] Rhinovirus/Entero virus Not Detected Not Detected LAB MICROBIOLOGY METHOD 03/25/2024 8:14 PM EST [facility] Bordetella pertussis Not Detected Not Detected LAB MICROBIOLOGY METHOD 03/25/2024 8:14 PM EST [facility] Bordetella parapertussis Not Detected Not Detected LAB MICROBIOLOGY METHOD 03/25/2024 8:14 PM [facility] Mycoplasma pneumo by PCR Not Detected Not Detected LAB MICROBIOLOGY METHOD 03/25/2024 8:14 PM [facility] Chlamydia pneumoniae Not Detected Not Detected LAB MICROBIOLOGY METHOD 03/25/2024 8:14 PM [facility] SARS COV-2 Not Detected Not Detected LAB MICROBIOLOGY METHOD 03/25/2024 8:14 PM [facility] Swab Both anterior nares / Unknown Non-blood Collection / Unknown 03/25/2024 6:49 PM EST 03/25/2024 6:59 PM EST [facility] - 03/25/2024 8:14 PM EST Testing was performed using the i[employer] Respiratory Pathogen PCR Assay. All results must [...] detection. Radha MONTERO LAB MICROBIOLOGY - GENERAL MALAIKA HURD Final Result [facility] [address] [place] [address], [place] [phone] * Ethanol (03/25/2024 12:01 PM EST) [facility] Ethanol Level <3 0 - 10 mg/dL LAB CHEMISTRY METHOD 03/25/2024 1:57 PM [facility] Blood Venous blood specimen / Unknown Venipuncture / Unknown 03/25/2024 12:01 PM EST 03/25/2024 12:20 PM EST us Radha MONTERO LAB BLOOD ORDERABLES Final Resu lt [facility] [address] [place] [address], [place] [phone] * (ABNORMAL) Urinalysis with reflex microscopic and culture (03/25/2024 8:26 AM EST) [facility] Specific [place] Urine 1.015 1.003 - 1.030 LAB URINALYSIS - AUTOMATED METHOD 03/25/2024 9:54 AM [facility] pH, Urine 6.5 5.0 - 8.0 pH LAB URINALYSIS - AUTOMATED METHOD 03/25/2024 9:54 AM [facility] Leukocytes, Urine Trace(A) Negative LAB URINALYSIS - AUTOMATED METHOD 03/25/2024 9:54 AM [facility] Nitrite, Urine Positive(A) Negative LAB URINALYSIS - AUTOMATED METHOD 03/25/2024 9:54 AM [facility] Protein, Urine >=300(A) <=Trace mg/dL LAB URINALYSIS - AUTOMATED METHOD 03/25/2024 9:54 AM [facility] Glucose, Urine 250(A) Negative mg/dL LAB URINALYSIS - AUTOMATED METHOD 03/25/2024 9:54 AM [facility] Ketones, Urine Negative Negative mg/dL LAB URINALYSIS - AUTOMATED METHOD 03/25/2024 9:54 AM [facility] Urobilinogen , Urine 0.2 0.2 - 1.0 mg/dL LAB URINALYSIS - AUTOMATED METHOD 03/25/2024 9:54 AM [facility] Bilirubin, Urine Negative Negative LAB URINALYSIS - AUTOMATED METHOD 03/25/2024 9:54 AM [facility] Blood, Urine Moderate(A) Negative LAB URINALYSIS - AUTOMATED METHOD 03/25/2024 9:54 AM [facility] RBC, Urine 10(H) 0 - 4 /HPF 03/25/2024 9:54 AM [facility] WBC, Urine 80(H) 0 - 4 /HPF 03/25/2024 9:54 AM [facility] Squamous Epithelial, Urine 100(H) 0 - 60 /LPF 03/25/2024 9:54 AM [facility] Crystals, Urine Moderate Amorphous Urate crystals. /LPF 03/25/2024 9:54 AM [facility] Bacteria, Urine Moderate(A) Negative /HPF 03/25/2024 9:54 AM [facility] Urine Urine specimen obtained by clean catch procedure / Unknown Non-blood Collection / Unknown 03/25/2024 8:26 AM EST 03/25/2024 8:54 AM EST us Noman Conteh MD LAB URINE ORDERABLES Monse l Result [facility] [address] [place] [address], * Lindsey urine culture tube (03/25/2024 8:26 AM EST) Extra Tube Hold for add-ons. 03/25/2024 10:01 AM [facility] Comment:Auto resulted. Urine Urine specimen obtained by clean catch procedure / Unknown Non-blood Collection / Unknown 03/25/2024 8:26 AM EST 03/25/2024 8:54 AM EST Noman Conteh MD LAB URINE ORDERABLES Monse l Result Performing Organization Address [facility]/ZIP Co de Phone Number [facility] [address] [place] [address], [place] [phone] * Culture urine (03/25/2024 8:26 AM EST) Pathologist [facility] Culture, Urine No growth 03/26/2024 10:25 AM EST [facility] Urine Urine specimen obtained by clean catch procedure / Unknown Non-blood Collection / Unknown 03/25/2024 8:26 AM EST 03/25/2024 9:54 AM EST Noman Conteh MD LAB MICROBIOLOGY - GENERA L ORDERABLES Final Result Performing Organization Address [facility] de Phone Number [facility] [address] [place] [address], [place] [phone] * Hepatitis B surface antigen with reflex to confirmation (03/25/2024 8:17 AM EST) [facility] Hepatitis B Surface Ag Negative Negative LAB CHEMISTRY METHOD 03/25/2024 12:29 PM EST [facility] Blood Venous blood specimen / Unknown Venipuncture / Unknown 03/25/2024 8:17 AM EST 03/25/2024 8:57 AM EST Narrative [facility] - 03/25/2024 12:29 PM EST Over the counter supplements containing high doses of biotin may interfere with this assay. ??If interference is suspected, patients shoud be retested after refraining from biotin supplements for 72 hours. us Noman Conteh MD LAB BLOOD ORDERABLES Monse l Result Performing Organization Address City/[facility]/ZIP Co de Phone Number [facility] [address] [place] [address], * Hepatitis B surface antibody quantitative (03/25/2024 8:17 AM EST) Hepatitis B Surface Ab Negative Negative LAB CHEMISTRY METHOD 03/25/2024 12:18 PM EST [facility] Hepatitis B Surface Ab Quantitative 7.1 mIU/mL LAB CHEMISTRY METHOD 03/25/2024 12:18 PM [facility] Blood Venous blood specimen / Unknown Venipuncture / Unknown 03/25/2024 8:17 AM EST 03/25/2024 8:57 AM EST [facility] - 03/25/2024 12:18 PM EST >=10 mIU/mL is considered to be consistent with immunity. Noman Conteh MD LAB BLOOD ORDERABLES Monse l Result Performing Organization Address [facility] de Phone Number [facility] [address] [place] [address], * (ABNORMAL) Venous blood gas (03/25/2024 8:17 AM EST) pH, [place] 7.12(LL) 7.32 - 7.42 pH 03/25/2024 9:04 AM [facility] pCO2, [place] 48 41 - 51 mmHg 03/25/2024 9:04 AM [facility] pO2, [place] 54(H) 25 - 40 mmHg 03/25/2024 9:04 AM [facility] HCO3, Venous 14.2(L) 22.0 - 26.0 mmol/L 03/25/2024 9:04 AM [facility] O2 Sat, [place] 82.3 % 03/25/2024 9:04 AM [facility] Base Excess, [place] -13.3(L) -2.0 - 2.0 mmol/L 03/25/2024 9:04 AM EST [facility] Blood Venous blood specimen / Unknown Venipuncture / Unknown 03/25/2024 8:17 AM EST 03/25/2024 8:56 AM EST Noman Conteh MD LAB BLOOD ORDERABLES Monse l Result Performing Organization Address City/[facility] Co de Phone Number [facility] [address] [place] [address], [place] [phone] * Ammonia (03/25/2024 8:17 AM EST) [facility] Ammonia 20 11 - 35 mcmol/L LAB CHEMISTRY METHOD 03/25/2024 9:17 AM EST [facility] Blood Venous blood specimen / Unknown Venipuncture / Unknown 03/25/2024 8:17 AM EST 03/25/2024 8:57 AM EST Noman Conteh MD LAB BLOOD ORDERABLES Monse l Result Performing Organization Address [facility] de Phone Number [facility] [address] [place] [address], [place] [phone] * ECG 12 lead (03/25/2024 7:58 AM EST) Ventricular Rate ECG 70 BPM GEMUSE Atrial Rate 70 BPM GEMUSE P-R Interval 174 ms GEMUSE QRS Duration 98 ms GEMUSE Q-T Interval 410 ms GEMUSE QTc 442 ms GEMUSE P Wave [place] 3 degrees GEMUSE R [place] 6 degrees GEMUSE T [place] 87 degrees GEMUSE ECG Interpretation Normal sinus [...] EST) Anatomical Region Laterality Modality Body Radiographic Afwn ging 03/25/2024 8:45 AM EST Impressions 03/25/2024 8:46 AM EST Small right pleural effusion with underlying atelectasis and/or infiltrate. The left lung remains clear. Cardiomegaly, new since 08/10/2020. Code 65636 -------- FINAL REPORT -------- Dictated By: Daren Sol Dictated Date: 03/25/2024 08:45 ET Assigned Physician: Daren Sol Reviewed and Electronically Signed By: Daren Sol Signed Date: 03/25/2024 08:46 ET Workstation ID: [id number] Transcribed By: Self Edit Transcribed Date: 03/25/2024 [...] lung remains clear. Cardiomegaly, new since08/10/2020. 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
--- OUTSIDE RECORDS SUMMARY | 2024-06-06 15:18 | XMS_ITS | Encounter Summary ---
Author Organization [facility] Address [address] [place] [address] Care Team Providers Care Commercial Intern Name Role Phone Cass Turcios MD Primary Care Provider [phone] Encounter Details Date Type Department Care Team (Late st Contact Info) Description 05/20/2024 Lab Requisition [facility] - Main Lab [address] [facility] [place] [address] Laurence Florence MD [address] [place] [id number] Elevated white blood cell count, unspecified Social [...] for your loved ones. For example, child life specialist or elderly care for an older [...] mmol/L LAB CHEMISTRY METHOD 05/20/2024 1:59 PM [facility] Potassium 5.8(H) 3.5 - 5.5 mmol/L LAB CHEMISTRY METHOD 05/20/2024 1:59 PM [facility] Chloride 100 96 - 110 mmol/L LAB CHEMISTRY METHOD 05/20/2024 1:59 PM [facility] CO2 26 21 - 32 mmol/L LAB CHEMISTRY METHOD 05/20/2024 1:59 PM [facility] Anion Gap 12(H) 3 - 11 LAB CHEMISTRY METHOD 05/20/2024 1:59 PM [facility] Glucose 130(H) 70 - 100 mg/dL LAB CHEMISTRY METHOD 05/20/2024 1:59 PM [facility] BUN 76(H) 5 - 25 mg/dL LAB CHEMISTRY METHOD 05/20/2024 1:59 PM [facility] Creatinine 9.66(H) 0.70 - 1.30 mg/dL LAB CHEMISTRY METHOD 05/20/2024 1:59 PM [facility] eGFR 5(L) >=60 mL/min/1. 73m2 LAB CHEMISTRY METHOD 05/20/2024 1:59 PM [facility] Comment:Calculation based on the??Chronic Kidney Disease Epidemiology Collaboration (CKD-EPI) equation refit??without adjustment for race. BUN/Creatinine Ratio 7.9 LAB CHEMISTRY METHOD 05/20/2024 1:59 PM [facility] Calcium 9.2 8.5 - 10.5 mg/dL LAB CHEMISTRY METHOD 05/20/2024 1:59 PM [facility] AST (SGOT) 9(L) 10 - 42 unit/L LAB CHEMISTRY METHOD 05/20/2024 1:59 PM [facility] ALT (SGPT) 14 10 - 60 unit/L LAB CHEMISTRY METHOD 05/20/2024 1:59 PM EDT [facility] Alkaline Phosphatase 142(H) 42 - 121 unit/L LAB CHEMISTRY METHOD 05/20/2024 1:59 PM EDT [facility] Total Protein 6.1 6.0 - 8.0 g/dL LAB CHEMISTRY METHOD 05/20/2024 1:59 PM EDT [facility] Albumin 2.5(L) 3.2 - 5.0 g/dL LAB CHEMISTRY METHOD 05/20/2024 1:59 PM EDT [facility] Total Bilirubin 0.4 0.0 - 1.4 mg/dL LAB CHEMISTRY METHOD 05/20/2024 1:59 PM EDT [facility] Blood Venous blood specimen / Unknown Venipuncture / Unknown 05/20/2024 6:04 AM EDT 05/20/2024 11:40 AM EDT us Laurence Florence MD LAB BLOOD ORDERABLES Final Resu lt [facility] [address] [place] [address], * (ABNORMAL) Complete blood count (05/20/2024 6:04 AM EDT) WBC 15.6(H) 4.8 - 10.8 K/mcL LAB HEMETOLOGY METHOD 05/20/2024 1:18 PM EDT [facility] RBC 3.50(L) 4.50 - 5.50 M/mcL LAB HEMETOLOGY METHOD 05/20/2024 1:18 PM EDT [facility] Hemoglobin 8.6(L) 13.5 - 17.5 g/dL LAB HEMETOLOGY METHOD 05/20/2024 1:18 PM EDT [facility] Hematocrit 29.0(L) 42.0 - 54.0 % LAB HEMETOLOGY METHOD 05/20/2024 1:18 PM EDT [facility] MCV 82.9 79.0 - 98.0 FL LAB HEMETOLOGY METHOD 05/20/2024 1:18 PM EDT [facility] MCH 24.6(L) 27.0 - 32.0 pcg LAB HEMETOLOGY METHOD 05/20/2024 1:18 PM EDT [facility] MCHC 29.7(L) 32.0 - 37.0 g/dL LAB HEMETOLOGY METHOD 05/20/2024 1:18 PM EDT [facility] RDW 19.1(H) 11.0 - 15.0 % LAB HEMETOLOGY METHOD 05/20/2024 1:18 PM EDT [facility] Platelets 479(H) 130 - 400 K/mcL LAB HEMETOLOGY METHOD 05/20/2024 1:18 PM EDT [facility] MPV 11.3(H) 7.0 - 11.0 FL LAB HEMETOLOGY METHOD 05/20/2024 1:18 PM EDT [facility] NRBC 0.0 <1.0 % LAB HEMETOLOGY METHOD 05/20/2024 1:18 PM EDT [facility] NRBC Absolute 0.00 <0.10 K/mcL LAB HEMETOLOGY METHOD 05/20/2024 1:18 PM EDT [facility] Blood Venous blood specimen / Unknown Venipuncture / Unknown 05/20/2024 6:04 AM EDT 05/20/2024 11:40 AM EDT us Laurence Florence MD LAB BLOOD ORDERABLES Final Resu lt [facility] [address] [place] [address], documented in this encounter Visit Diagnoses Diagnosis Elevated white blood cell count, unspecified documented in this encounter Care Teams Commercial Intern Relationship Specialty Start Date End Date Cass Turcios MD [address] [place] [address] [address] [place] [address] PCP - General Geriatric Medicine 04/02/24 documented as of this encounter
--- OUTSIDE RECORDS SUMMARY | 2024-06-06 15:18 | XMS_ITS | Encounter Summary ---
Author Organization [facility] Address [address] [place] [address] Care Team Providers Care Shipping Lead Name Role Phone Cass Turcios MD Primary Care Provider [phone] Encounter Details Date Type Department Care Team (Late st Contact Info) Description 05/30/2024 Lab Requisition [facility] Main Lab [address] [facility] [place] [address] Laurence Florence MD [address] [place] [id number] Chronic respiratory failure with hypoxia (CMS/HCC); Encounter [...] for your loved ones. For example, director maternal child or elderly care for an older adult? [...] (CMS/HCC) documented in this encounter Results * Culture blood (05/30/2024 7:41 AM EDT) Culture, Blood No growth at 5 days LAB MICROBIOLOGY METHOD 06/04/2024 9:01 AM EDT [facility] Blood Venipuncture / Unknown 05/30/2024 7:41 AM EDT 05/30/2024 8:14 AM EDT us Laurence Florence MD LAB MICROBIOLOGY - [facility] MALAIKA HURD Final Result [facility] [address] [place] [address], documented in this encounter Visit Diagnoses Diagnosis Chronic respiratory failure with hypoxia Encounter for orthopedic aftercare following surgical amputation Encounter for surgical aftercare following surgery on the circulatory system Peripheral vascular disease, unspecified (CMS/[facility]) Peripheral vascular disease, unspecified documented in this encounter Care Teams Shipping Lead Relationship Specialty Start Date End Date Cass Turcios MD [address] [place] [address] [address] [place] [address] PCP - General Geriatric Medicine 04/02/24 documented as of this encounter
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
--- OUTSIDE RECORDS SUMMARY | 2024-06-06 15:18 | XMS_ITS | Encounter Summary ---
Author Organization [facility], Address [address] [place] [address] Phone Care Team Providers Care Loan Coordinator Name Role Phone Jade Lewis MD Primary Care Provider [phone] Reason for Visit * Reason Comments Med Refill Encounter Details Date Type Department Care Team (Late st Contact Info) Description 05/22/2023 Refill [facility] [address] [place] [phone] Car Mcdonald MD [facility] [place] [phone] Social History Tobacco Use Types Packs/Day Years [...] on filedocumented in this encounter Care Teams Loan Coordinator Relationship Specialty Start Date End Date Jade Lewis MD [address] [place] [id number] PCP - General Internal Medicine 04/25/22 documented as of this encounter
--- OUTSIDE RECORDS SUMMARY | 2024-06-06 15:18 | XMS_ITS | Encounter Summary ---
Author Organization [facility], Address [address] [place] [address] Phone Care Team Providers Care Spiral Tube Winder Helper Name Role Phone Jade Lewis MD Primary Care Provider [phone] Reason for Visit * Reason Comments Med Refill Encounter Details Date Type Department Care Team (Late st Contact Info) Description 09/17/2022 Refill [facility] [address] [place] [phone] Malcolm Taylor MD [address] [place] [address] [place] [phone] Social History Tobacco Use Types Packs/Day Years [...] on filedocumented in this encounter Care Teams Spiral Tube Winder Helper Relationship Specialty Start Date End Date Jade Lewis MD [address] [place] [id number] PCP - General Internal Medicine 04/25/22 documented as of this encounter
--- OUTSIDE RECORDS SUMMARY | 2024-06-06 15:18 | XMS_ITS | Encounter Summary ---
Author Organization [facility] Address [address] [place] [address] Care Team Providers Care Cycle Repairer Name Role Phone Cass Turcios MD Primary Care Provider Encounter Details Date Type Department Care Team (Late st Contact Info) Description 05/31/2024 Lab Requisition [facility] - Main Lab 299 [facility] [place] [address] Laurence Florence MD [address] [place] [address] End stage renal disease (CMS/HCC); Anemia, unspecified Social History Tobacco Use Types Packs/Day [...] for your loved ones. For example, children's institution attendant or elderly care for an older adult? [...] Diagnosis Comments CBC WITH AUTO DIFFERENTIAL Routine 05/31/2024 6:09 AM EDT End stage renal disease (CMS/HCC) Anemia, unspecified CBC AND DIFFERENTIAL Routine 05/31/2024 6:09 AM EDT End stage renal disease (CMS/HCC) Anemia, unspecified BASIC METABOLIC PANEL Routine 05/31/2024 6:09 AM EDT End stage renal disease (CMS/HCC) Anemia, unspecified documented in this encounter Results * (ABNORMAL) CBC auto differential (05/31/2024 6:09 AM EDT) WBC 10.9(H) 4.8 - 10.8 K/mcL LAB HEMETOLOGY METHOD 05/31/2024 10:13 AM [facility] LAB RBC 3.20(L) 4.50 - 5.50 M/mcL LAB HEMETOLOGY METHOD 05/31/2024 10:13 AM [facility] LAB Hemoglobin 7.7(L) 13.5 - 17.5 g/dL LAB HEMETOLOGY METHOD 05/31/2024 10:13 AM [facility] LAB Hematocrit 26.1(L) 42.0 - 54.0 % LAB HEMETOLOGY METHOD 05/31/2024 10:13 AM [facility] LAB MCV 81.8 79.0 - 98.0 FL LAB HEMETOLOGY METHOD 05/31/2024 10:13 AM [facility] LAB MCH 24.1(L) 27.0 - 32.0 pcg LAB HEMETOLOGY METHOD 05/31/2024 10:13 AM [facility] LAB MCHC 29.5(L) 32.0 - 37.0 g/dL LAB HEMETOLOGY METHOD 05/31/2024 10:13 AM [facility] LAB RDW 17.8(H) 11.0 - 15.0 % LAB HEMETOLOGY METHOD 05/31/2024 10:13 AM [facility] Platelets 227 130 - 400 K/mcL LAB HEMETOLOGY METHOD 05/31/2024 10:13 AM [facility] MPV 10.6 7.0 - 11.0 FL LAB HEMETOLOGY METHOD 05/31/2024 10:13 AM [facility] NRBC 0.0 <1.0 % LAB HEMETOLOGY METHOD 05/31/2024 10:13 AM [facility] LAB NRBC Absolute 0.00 <0.10 K/mcL LAB HEMETOLOGY METHOD 05/31/2024 10:13 AM [facility] Neutrophils Relative 69.5 % LAB HEMETOLOGY METHOD 05/31/2024 10:13 AM [facility] Lymphocytes Relative 19.2 % LAB HEMETOLOGY METHOD 05/31/2024 10:13 AM [facility] Monocytes Relative 8.4 % LAB HEMETOLOGY METHOD 05/31/2024 10:13 AM [facility] Eosinophils Relative 1.8 % LAB HEMETOLOGY METHOD 05/31/2024 10:13 AM [facility] Basophils Relative 0.5 % LAB HEMETOLOGY METHOD 05/31/2024 10:13 AM [facility] Immature Granulocytes Relative 0.6 % LAB HEMETOLOGY METHOD 05/31/2024 10:13 AM [facility] Neutrophils Absolute 7.60(H) 1.50 - 7.00 K/mcL LAB HEMETOLOGY METHOD 05/31/2024 10:13 AM [facility] Lymphocytes Absolute 2.10 1.00 - 5.00 K/mcL LAB HEMETOLOGY METHOD 05/31/2024 10:13 AM [facility] Monocytes Absolute 0.92 0.20 - 1.00 K/mcL LAB HEMETOLOGY METHOD 05/31/2024 10:13 AM [facility] Eosinophils Absolute 0.20 0.00 - 0.50 K/mcL LAB HEMETOLOGY METHOD 05/31/2024 10:13 AM [facility] Basophils Absolute 0.05 0.00 - 0.20 K/mcL LAB HEMETOLOGY METHOD 05/31/2024 10:13 AM [facility] Immature Granulocytes Absolute 0.07(H) 0.00 - 0.03 K/mcL LAB HEMETOLOGY METHOD 05/31/2024 10:13 AM [facility] Blood Venous blood specimen / Unknown Venipuncture / Unknown 05/31/2024 6:09 AM EDT 05/31/2024 9:24 AM EDT us Laurence Florence MD LAB BLOOD ORDERABLES Final Resu lt [facility] [address] [place] [address], [place] [phone] * (ABNORMAL) Basic metabolic panel (05/31/2024 6:09 AM EDT) Sodium 139 133 - 145 mmol/L LAB CHEMISTRY METHOD 05/31/2024 11:03 AM [facility] Potassium 4.6 3.5 - 5.5 mmol/L LAB CHEMISTRY METHOD 05/31/2024 11:03 AM [facility] Chloride 106 96 - 110 mmol/L LAB CHEMISTRY METHOD 05/31/2024 11:03 AM [facility] CO2 27 21 - 32 mmol/L LAB CHEMISTRY METHOD 05/31/2024 11:03 AM [facility] Anion Gap 6 3 - 11 LAB CHEMISTRY METHOD 05/31/2024 11:03 AM [facility] Glucose 24(LL) 70 - 100 mg/dL LAB CHEMISTRY METHOD 05/31/2024 11:03 AM [facility] BUN 52(H) 5 - 25 mg/dL LAB CHEMISTRY METHOD 05/31/2024 11:03 AM [facility] Creatinine 7.22(H) 0.70 - 1.30 mg/dL LAB CHEMISTRY METHOD 05/31/2024 11:03 AM EDT [facility] eGFR 8(L) >=60 mL/min/1. 73m2 LAB CHEMISTRY METHOD 05/31/2024 11:03 AM EDT [facility] Comment:Calculation based on the??Chronic Kidney Disease Epidemiology Collaboration (CKD-EPI) equation refit??without adjustment for race. BUN/Creatinine Ratio 7.2 LAB CHEMISTRY METHOD 05/31/2024 11:03 AM EDT [facility] Calcium 8.2(L) 8.5 - 10.5 mg/dL LAB CHEMISTRY METHOD 05/31/2024 11:03 AM EDT [facility] Blood Venous blood specimen / Unknown Venipuncture / Unknown 05/31/2024 6:09 AM EDT 05/31/2024 9:24 AM EDT us Laurence Florence MD LAB BLOOD ORDERABLES Final Resu lt [facility] [address] [place] [address], documented in this encounter Visit Diagnoses Diagnosis End stage renal disease (CMS/[facility]) End stage renal disease Anemia, unspecified documented in this encounter Care Teams Cycle Repairer Relationship Specialty Start Date End Date Cass Turcios MD [address] [place] [address] [address] [place] [address] PCP - General Geriatric Medicine 04/02/24 documented as of this encounter
--- OUTSIDE RECORDS SUMMARY | 2024-06-06 15:18 | XMS_ITS | Encounter Summary ---
Author Organization [facility] Address [address] [place] [address] Care Team Providers Care Environmental Control Administrator Name Role Phone Cass Turcios MD Primary Care Provider [phone] Encounter Details Date Type Department Care Team (Late st Contact Info) Description 05/18/2024 Lab Requisition [facility] - Main Lab 299 [facility] [place] [address] Elsy Christina PA [address] [address] Unspecified systolic (congestive) heart failure [...] care for your loved ones. For example, attendant children's institution or elderly care for an older adult? [...] AM EDT Unspecified systolic (congestive) heart failure ([facility]/HCC) Type 2 diabetes mellitus without complications (CMS/HCC) End stage renal disease (CMS/HCC) BASIC METABOLIC PANEL Routine 05/18/2024 7:20 AM EDT Unspecified systolic (congestive) heart failure ([facility]/HCC) Type 2 diabetes mellitus without complications (CMS/HCC) End stage renal disease (CMS/HCC) documented in this encounter Results * (ABNORMAL) CBC auto differential (05/18/2024 7:20 AM EDT) WBC 14.7(H) 4.8 - 10.8 K/mcL LAB HEMETOLOGY METHOD 05/18/2024 10:27 AM [facility] RBC 3.60(L) 4.50 - 5.50 M/mcL LAB HEMETOLOGY METHOD 05/18/2024 10:27 AM [facility] Hemoglobin 8.8(L) 13.5 - 17.5 g/dL LAB HEMETOLOGY METHOD 05/18/2024 10:27 AM [facility] Hematocrit 29.6(L) 42.0 - 54.0 % LAB HEMETOLOGY METHOD 05/18/2024 10:27 AM [facility] LAB MCV 83.1 79.0 - 98.0 FL LAB HEMETOLOGY METHOD 05/18/2024 10:27 AM [facility] MCH 24.7(L) 27.0 - 32.0 pcg LAB HEMETOLOGY METHOD 05/18/2024 10:27 AM [facility] MCHC 29.7(L) 32.0 - 37.0 g/dL LAB HEMETOLOGY METHOD 05/18/2024 10:27 AM [facility] RDW 18.3(H) 11.0 - 15.0 % LAB HEMETOLOGY METHOD 05/18/2024 10:27 AM [facility] LAB Platelets 433(H) 130 - 400 K/mcL LAB HEMETOLOGY METHOD 05/18/2024 10:27 AM [facility] MPV 10.5 7.0 - 11.0 FL LAB HEMETOLOGY METHOD 05/18/2024 10:27 AM [facility] NRBC 0.0 <1.0 % LAB HEMETOLOGY METHOD 05/18/2024 10:27 AM [facility] NRBC Absolute 0.00 <0.10 K/mcL LAB HEMETOLOGY METHOD 05/18/2024 10:27 AM [facility] Neutrophils Relative 75.0 % LAB HEMETOLOGY METHOD 05/18/2024 10:27 AM [facility] Lymphocytes Relative 15.7 % LAB HEMETOLOGY METHOD 05/18/2024 10:27 AM [facility] Monocytes Relative 5.9 % LAB HEMETOLOGY METHOD 05/18/2024 10:27 AM [facility] Eosinophils Relative 2.5 % LAB HEMETOLOGY METHOD 05/18/2024 10:27 AM [facility] Basophils Relative 0.3 % LAB HEMETOLOGY METHOD 05/18/2024 10:27 AM [facility] Immature Granulocytes Relative 0.6 % LAB HEMETOLOGY METHOD 05/18/2024 10:27 AM [facility] Neutrophils Absolute 11.02(H) 1.50 - 7.00 K/mcL LAB HEMETOLOGY METHOD 05/18/2024 10:27 AM [facility] Lymphocytes Absolute 2.30 1.00 - 5.00 K/[facility] LAB HEMETOLOGY METHOD 05/18/2024 10:27 AM EDT [facility] Monocytes Absolute 0.87 0.20 - 1.00 K/[facility] LAB HEMETOLOGY METHOD 05/18/2024 10:27 AM EDT [facility] LAB Eosinophils Absolute 0.37 0.00 - 0.50 K/[facility] LAB HEMETOLOGY METHOD 05/18/2024 10:27 AM EDT [facility] Basophils Absolute 0.04 0.00 - 0.20 K/[facility] LAB HEMETOLOGY METHOD 05/18/2024 10:27 AM EDT [facility] Immature Granulocytes Absolute 0.09(H) 0.00 - 0.03 K/[facility] LAB HEMETOLOGY METHOD 05/18/2024 10:27 AM EDT [facility] Blood Venous blood specimen / Unknown Venipuncture / Unknown 05/18/2024 7:20 AM EDT 05/18/2024 9:58 AM EDT us Elsy MONTERO LAB BLOOD ORDERABLES Final Re sult [facility] LAB [address] [place] [address], * (ABNORMAL) Hemoglobin A1c (05/18/2024 7:20 AM EDT) Hemoglobin A1C 7.2(H) <6.5 % LAB CHEMISTRY METHOD 05/19/2024 12:06 PM EDT [facility] Mean Bld Glu Estim. 160 mg/dL LAB CHEMISTRY METHOD 05/19/2024 12:06 PM EDT [facility] Blood Venous blood specimen / Unknown Venipuncture / Unknown 05/18/2024 7:20 AM EDT 05/18/2024 9:58 AM EDT us Elsy MONTERO LAB BLOOD ORDERABLES Final Re sult [facility] [address] [place] [address], * (ABNORMAL) Basic metabolic panel (05/18/2024 7:20 AM EDT) Sodium 136 133 - 145 mmol/L LAB CHEMISTRY METHOD 05/18/2024 10:41 AM [facility] Potassium 4.8 3.5 - 5.5 mmol/L LAB CHEMISTRY METHOD 05/18/2024 10:41 AM [facility] Chloride 100 96 - 110 mmol/L LAB CHEMISTRY METHOD 05/18/2024 10:41 AM [facility] CO2 28 21 - 32 mmol/L LAB CHEMISTRY METHOD 05/18/2024 10:41 AM [facility] Anion Gap 8 3 - 11 LAB CHEMISTRY METHOD 05/18/2024 10:41 AM [facility] Glucose 77 70 - 100 mg/dL LAB CHEMISTRY METHOD 05/18/2024 10:41 AM [facility] BUN 43(H) 5 - 25 mg/dL LAB CHEMISTRY METHOD 05/18/2024 10:41 AM [facility] Creatinine 6.49(H) 0.70 - 1.30 mg/dL LAB CHEMISTRY METHOD 05/18/2024 10:41 AM [facility] eGFR 9(L) >=60 mL/min/1. 73m2 LAB CHEMISTRY METHOD 05/18/2024 10:41 AM [facility] LAB Comment:Calculation based on the??Chronic Kidney Disease Epidemiology Collaboration (CKD-EPI) equation refit??without adjustment for race. BUN/Creatinine Ratio 6.6 LAB CHEMISTRY METHOD 05/18/2024 10:41 AM [facility] Calcium 9.0 8.5 - 10.5 mg/dL LAB CHEMISTRY METHOD 05/18/2024 10:41 AM EDT [facility] Blood Venous blood specimen / Unknown Venipuncture / Unknown 05/18/2024 7:20 AM EDT 05/18/2024 9:58 AM EDT us Elsy MONTERO LAB BLOOD ORDERABLES Final Re sult [facility] [address] [place] [address], documented in this encounter Visit Diagnoses Diagnosis Unspecified systolic (congestive) heart failure (CMS/HCC) Type 2 diabetes mellitus without complications End stage renal disease (CMS/HCC) End stage renal disease documented in this encounter Care Teams Environmental Control Administrator Relationship Specialty Start Date End Date Cass Turcios MD [address] [place] [address] [address] [place] [address] PCP - General Geriatric Medicine 04/02/24 documented as of this encounter
--- OUTSIDE RECORDS SUMMARY | 2024-06-06 15:18 | XMS_ITS | Encounter Summary ---
Author Organization [facility], Address [address] [place] [address] Phone Care Team Providers Care Child And Adolescent Therapist Name Role Phone Jade Lewis MD Primary Care Provider [phone] Encounter Details Date Type Department Care Team (Late st Contact Info) Description 10/28/2019 Orders Only [facility] [address] [phone] [place] [address] [place] [phone] Social History Tobacco Use Types Packs/Day Years [...] on filedocumented in this encounter Care Teams Child And Adolescent Therapist Relationship Specialty Start Date End Date Jade Lewis MD [address] [place] [address] PCP - General Internal Medicine 04/25/22 documented as of this encounter
--- OUTSIDE RECORDS SUMMARY | 2024-06-06 15:18 | XMS_ITS | Encounter Summary ---
Author Organization [facility] Address [address] [place] [address] Care Team Providers Care Blurb Writer Name Role Phone Cass Turcios MD Primary Care Provider [phone] Encounter Details Date Type Department Care Team (Latest Contact Info) Description 05/24/2024 Lab Requisition [facility] - Main Lab 299 [facility] [place] [address] Laurence Florence MD [address] [place] [phone] Chronic combined systolic (congestive) and diastolic (congestive) [...] mellitus without complications End stage renal disease ([facility]) CBC AND DIFFERENTIAL Routine 05/24/2024 5:56 AM [...] CBC auto differential (05/24/2024 5:56 AM EDT) [facility] WBC 9.3 4.8 - 10.8 K/mcL LAB HEMETOLOGY METHOD 05/24/2024 9:31 AM [facility] LAB RBC 3.40(L) 4.50 - 5.50 M/mcL LAB HEMETOLOGY METHOD 05/24/2024 9:31 AM [facility] LAB Hemoglobin 8.5(L) 13.5 - 17.5 g/dL LAB HEMETOLOGY METHOD 05/24/2024 9:31 AM [facility] LAB Hematocrit 28.2(L) 42.0 - 54.0 % LAB HEMETOLOGY METHOD 05/24/2024 9:31 AM [facility] LAB MCV 82.0 79.0 - 98.0 FL LAB HEMETOLOGY METHOD 05/24/2024 9:31 AM [facility] LAB MCH 24.7(L) 27.0 - 32.0 pcg LAB HEMETOLOGY METHOD 05/24/2024 9:31 AM [facility] LAB MCHC 30.1(L) 32.0 - 37.0 g/dL LAB HEMETOLOGY METHOD 05/24/2024 9:31 AM [facility] LAB RDW 17.8(H) 11.0 - 15.0 % LAB HEMETOLOGY METHOD 05/24/2024 9:31 AM [facility] LAB Platelets 335 130 - 400 K/mcL LAB HEMETOLOGY METHOD 05/24/2024 9:31 AM [facility] LAB MPV 10.5 7.0 - 11.0 FL LAB HEMETOLOGY METHOD 05/24/2024 9:31 AM [facility] NRBC 0.0 <1.0 % LAB HEMETOLOGY METHOD 05/24/2024 9:31 AM [facility] NRBC Absolute 0.00 <0.10 K/mcL LAB HEMETOLOGY METHOD 05/24/2024 9:31 AM [facility] Neutrophils Relative 67.5 % LAB HEMETOLOGY METHOD 05/24/2024 9:31 AM [facility] Lymphocytes Relative 16.4 % LAB HEMETOLOGY METHOD 05/24/2024 9:31 AM [facility] Monocytes Relative 10.6 % LAB HEMETOLOGY METHOD 05/24/2024 9:31 AM [facility] Eosinophils Relative 4.5 % LAB HEMETOLOGY METHOD 05/24/2024 9:31 AM [facility] Basophils Relative 0.4 % LAB HEMETOLOGY METHOD 05/24/2024 9:31 AM [facility] Immature Granulocytes Relative 0.6 % LAB HEMETOLOGY METHOD 05/24/2024 9:31 AM [facility] Neutrophils Absolute 6.24 1.50 - 7.00 K/mcL LAB HEMETOLOGY METHOD 05/24/2024 9:31 AM [facility] Lymphocytes Absolute 1.52 1.00 - 5.00 K/mcL LAB HEMETOLOGY METHOD 05/24/2024 9:31 AM [facility] Monocytes Absolute 0.98 0.20 - 1.00 K/mcL LAB HEMETOLOGY METHOD 05/24/2024 9:31 AM [facility] Eosinophils Absolute 0.42 0.00 - 0.50 K/[facility] LAB HEMETOLOGY METHOD 05/24/2024 9:[address] [facility] Basophils Absolute 0.04 0.00 - 0.20 K/[facility] LAB HEMETOLOGY METHOD 05/24/2024 9:[address] [facility] Immature Granulocytes Absolute 0.06(H) 0.00 - 0.03 K/[facility] LAB HEMETOLOGY METHOD 05/24/2024 9:[address] [facility] Blood Venous blood specimen / Unknown Venipuncture / Unknown 05/24/2024 5:56 AM EDT 05/24/2024 8:41 AM EDT us Laurence Florence MD LAB BLOOD ORDERABLES Final Resu lt [facility] [address] [place] [address], * (ABNORMAL) Basic metabolic panel (05/24/2024 5:56 AM EDT) Sodium 134 133 - 145 mmol/L LAB CHEMISTRY METHOD 05/24/2024 9:53 AM [facility] Potassium 4.8 3.5 - 5.5 mmol/L LAB CHEMISTRY METHOD 05/24/2024 9:53 AM [facility] Chloride 100 96 - 110 mmol/L LAB CHEMISTRY METHOD 05/24/2024 9:53 AM [facility] CO2 26 21 - 32 mmol/L LAB CHEMISTRY METHOD 05/24/2024 9:53 AM [facility] Anion Gap 8 3 - 11 LAB CHEMISTRY METHOD 05/24/2024 9:53 AM [facility] Glucose 131(H) 70 - 100 mg/dL LAB CHEMISTRY METHOD 05/24/2024 9:53 AM EDT [facility] BUN 67(H) 5 - 25 mg/dL LAB CHEMISTRY METHOD 05/24/2024 9:[address] [facility] Creatinine 7.92(H) 0.70 - 1.30 mg/dL LAB CHEMISTRY METHOD 05/24/2024 9:[address] [facility] eGFR 7(L) >=60 mL/min/1. 73m2 LAB CHEMISTRY METHOD 05/24/2024 9:[address] [facility] Comment:Calculation based on the??Chronic Kidney Disease Epidemiology Collaboration (CKD-EPI) equation refit??without adjustment for race. BUN/Creatinine Ratio 8.5 LAB CHEMISTRY METHOD 05/24/2024 9:[address] [facility] Calcium 8.6 8.5 - 10.5 mg/dL LAB CHEMISTRY METHOD 05/24/2024 9:[address] [facility] Blood Venous blood specimen / Unknown Venipuncture / Unknown 05/24/2024 5:56 AM EDT 05/24/2024 8:41 AM EDT us Laurence Florence MD LAB BLOOD ORDERABLES Final Resu lt [facility] [address] [place] [address], documented in this encounter Visit Diagnoses Diagnosis Chronic combined systolic (congestive) and diastolic (congestive) heart failure Type 2 diabetes mellitus without complications End stage renal disease (CMS/HCC) End stage renal disease documented in this encounter Care Teams Blurb Writer Relationship Specialty Start Date End Date aCss Turcios MD [address] [place] [address] [address] [place] [address] PCP - General Geriatric Medicine 04/02/24 documented as of this encounter
--- OUTSIDE RECORDS SUMMARY | 2024-06-06 15:18 | XMS_ITS | Encounter Summary ---
Author Organization [facility] Address [address] [place] [address] Phone Care Team Providers Care Silk Screen Painter Name Role Phone Jade Lewis MD Primary Care Provider [phone] Reason for Visit * Reason Comments Med Refill Encounter Details Date Type Department Care Team (Late st Contact Info) Description 07/23/2021 Refill [facility] [address] [place] [phone] Alejandro Santana MD [address] [place] [phone] Social History Tobacco Use Types Packs/Day Years [...] on filedocumented in this encounter Care Teams Silk Screen Painter Relationship Specialty Start Date End Date Jade Lewis MD [address] [place] [address] PCP - General Internal Medicine 04/25/22 documented as of this encounter
--- OUTSIDE RECORDS SUMMARY | 2024-06-06 15:18 | XMS_ITS | Encounter Summary ---
Author Organization [facility] Address [address] [place] [address] Care Team Providers Care Cheesemaker Name Role Phone Cass Turcios MD Primary Care Provider [phone] Encounter Details Date Type Department Care Team (Latest Contact Info) Description 05/28/2024 Lab Requisition [facility] - Main Lab [address] [facility] [place] [address] Laurence Florence MD [address] [place] [address] Anemia, unspecified; End stage renal disease (CMS/HCC); [...] care for your loved ones. For example, manager child or elderly care for an older [...] (ABNORMAL) Magnesium (05/29/2024 5:09 AM EDT) Pathologist [facility] Magnesium 1.8(L) 1.9 - 2.6 mg/dL LAB CHEMISTRY METHOD 05/29/2024 9:[address] [facility] Blood Venous blood specimen / Unknown Venipuncture / Unknown 05/29/2024 5:09 AM EDT 05/29/2024 8:42 AM EDT us Laurence Florence MD LAB BLOOD ORDERABLES Final Resu lt [facility] [address] [place] [address], [place] [phone] * (ABNORMAL) Complete blood count (05/29/2024 5:09 AM EDT) [facility] WBC 10.8 4.8 - 10.8 K/mcL LAB HEMETOLOGY METHOD 05/29/2024 9:[address] [facility] RBC 3.50(L) 4.50 - 5.50 M/mcL LAB HEMETOLOGY METHOD 05/29/2024 9:[address] [facility] Hemoglobin 8.2(L) 13.5 - 17.5 g/dL LAB HEMETOLOGY METHOD 05/29/2024 9:[address] [facility] Hematocrit 28.4(L) 42.0 - 54.0 % LAB HEMETOLOGY METHOD 05/29/2024 9:[address] [facility] MCV 81.8 79.0 - 98.0 FL LAB HEMETOLOGY METHOD 05/29/2024 9:[address] [facility] MCH 23.6(L) 27.0 - 32.0 pcg LAB HEMETOLOGY METHOD 05/29/2024 9:[address] [facility] MCHC 28.9(L) 32.0 - 37.0 g/dL LAB HEMETOLOGY METHOD 05/29/2024 9:01 AM [facility] RDW 18.2(H) 11.0 - 15.0 % LAB HEMETOLOGY METHOD 05/29/2024 9:[address] [facility] Platelets 263 130 - 400 K/mcL LAB HEMETOLOGY METHOD 05/29/2024 9:01 AM [facility] MPV 11.2(H) 7.0 - 11.0 FL LAB HEMETOLOGY METHOD 05/29/2024 9:01 AM [facility] NRBC 0.0 <1.0 % LAB HEMETOLOGY METHOD 05/29/2024 9:01 AM [facility] NRBC Absolute 0.00 <0.10 K/mcL LAB HEMETOLOGY METHOD 05/29/2024 9:01 AM [facility] Blood Venous blood specimen / Unknown Venipuncture / Unknown 05/29/2024 5:09 AM EDT 05/29/2024 8:42 AM EDT us Laurence Florence MD LAB BLOOD ORDERABLES Final Resu lt [facility] [address] [place] [address], * (ABNORMAL) Renal function panel (05/29/2024 5:09 AM EDT) Sodium 135 133 - 145 mmol/L LAB CHEMISTRY METHOD 05/29/2024 10:03 AM [facility] Potassium 4.7 3.5 - 5.5 mmol/L LAB CHEMISTRY METHOD 05/29/2024 10:03 AM [facility] Chloride 99 96 - 110 mmol/L LAB CHEMISTRY METHOD 05/29/2024 10:03 AM [facility] CO2 27 21 - 32 mmol/L LAB CHEMISTRY METHOD 05/29/2024 10:03 AM [facility] Anion Gap 9 3 - 11 LAB CHEMISTRY METHOD 05/29/2024 10:03 AM [facility] Glucose 22(LL) 70 - 100 mg/dL LAB CHEMISTRY METHOD 05/29/2024 10:03 AM [facility] BUN 60(H) 5 - 25 mg/dL LAB CHEMISTRY METHOD 05/29/2024 10:03 AM [facility] Creatinine 7.71(H) 0.70 - 1.30 mg/dL LAB CHEMISTRY METHOD 05/29/2024 10:03 AM [facility] eGFR 7(L) >=60 mL/min/1. 73m2 LAB CHEMISTRY METHOD 05/29/2024 10:03 AM [facility] Comment:Calculation based on the??Chronic Kidney Disease Epidemiology Collaboration (CKD-EPI) equation refit??without adjustment for race. BUN/Creatinine Ratio 7.8 LAB CHEMISTRY METHOD 05/29/2024 10:03 AM [facility] Albumin 2.4(L) 3.2 - 5.0 g/dL LAB CHEMISTRY METHOD 05/29/2024 10:03 AM [facility] Calcium 8.7 8.5 - 10.5 mg/dL LAB CHEMISTRY METHOD 05/29/2024 10:03 AM [facility] Phosphorus 4.7(H) 2.5 - 4.5 mg/dL LAB CHEMISTRY METHOD 05/29/2024 10:03 AM [facility] Blood Venous blood specimen / Unknown Venipuncture / Unknown 05/29/2024 5:09 AM EDT 05/29/2024 8:42 AM EDT us Laurence Florence MD LAB BLOOD ORDERABLES Final Resu lt [facility] ([facility] [address] [place] [address], documented in this encounter Visit Diagnoses Diagnosis Anemia, unspecified End stage renal disease (CMS/[facility]) End stage renal disease Unspecified asthma, uncomplicated documented in this encounter Care Teams Cheesemaker Relationship Specialty Start Date End Date Cass Turcios MD [address] [place] [address] [address] [place] [address] PCP - General Geriatric Medicine 04/02/24 documented as of this encounter
--- OUTSIDE RECORDS SUMMARY | 2024-06-06 15:18 | XMS_ITS | Encounter Summary ---
Author Organization [facility], Address [address] [place] [address] Phone Care Team Providers Care Director Of Community Life Name Role Phone Jade Lewis MD Primary Care Provider [phone] Reason for Visit * Reason Comments Med Refill Encounter Details Date Type Department Care Team (Late st Contact Info) Description 04/27/2019 Refill [facility] [address] [place] [address] Mercedes Law MD Social History [...] in this encounter Care Teams Director Of Community Life Relationship Specialty Start Date End Date Jade Lewis MD [address] [place], [place] [id number] PCP - General Internal Medicine 04/25/22 documented as of this encounter
--- OUTSIDE RECORDS SUMMARY | 2024-06-06 15:18 | XMS_ITS | Encounter Summary ---
Author Organization [facility] Address [address] [place] [address] Care Team Providers Care Training Executive Name Role Phone Cass Turcios MD Primary Care Provider [phone] Encounter Details Date Type Department Care Team (Latest Contact Info) Description 05/17/2024 Lab Requisition [facility] - Main Lab [address] [facility] [place] [address] Laurence Florence MD [address] [place] [id number] Type 2 diabetes mellitus without complications (CMS/HCC); [...] for your loved ones. For example, child psychometrist or elderly care for an older adult? [...] EDT Type 2 diabetes mellitus without complications ([facility]/HCC) End stage renal disease ([facility]/HCC) documented in this encounter Results * (ABNORMAL) Basic metabolic panel (05/17/2024 5:37 AM EDT) Sodium 135 133 - 145 mmol/L LAB CHEMISTRY METHOD 05/17/2024 11:32 AM [facility] Potassium 5.5 3.5 - 5.5 mmol/L LAB CHEMISTRY METHOD 05/17/2024 11:32 AM [facility] Chloride 95(L) 96 - 110 mmol/L LAB CHEMISTRY METHOD 05/17/2024 11:32 AM [facility] CO2 29 21 - 32 mmol/L LAB CHEMISTRY METHOD 05/17/2024 11:32 AM [facility] Anion Gap 11 3 - 11 LAB CHEMISTRY METHOD 05/17/2024 11:32 AM [facility] Glucose 173(H) 70 - 100 mg/dL LAB CHEMISTRY METHOD 05/17/2024 11:32 AM [facility] BUN 52(H) 5 - 25 mg/dL LAB CHEMISTRY METHOD 05/17/2024 11:32 AM [facility] Creatinine 7.48(H) 0.70 - 1.30 mg/dL LAB CHEMISTRY METHOD 05/17/2024 11:32 AM [facility] eGFR 7(L) >=60 mL/min/1. 73m2 LAB CHEMISTRY METHOD 05/17/2024 11:32 AM [facility] Comment:Calculation based on the??Chronic Kidney Disease Epidemiology Collaboration (CKD-EPI) equation refit??without adjustment for race. BUN/Creatinine Ratio 7.0 LAB CHEMISTRY METHOD 05/17/2024 11:32 AM [facility] Calcium 9.0 8.5 - 10.5 mg/dL LAB CHEMISTRY METHOD 05/17/2024 11:32 AM EDT [facility] Blood Venous blood specimen / Unknown Venipuncture / Unknown 05/17/2024 5:37 AM EDT 05/17/2024 9:43 AM EDT Laurence Florence MD LAB BLOOD ORDERABLES Final Resu lt Performing Organization Address [facility] Co de Phone Number [facility] [address] [place] [address], [place] [phone] * (ABNORMAL) Hemoglobin A1c (05/17/2024 5:37 AM EDT) Hemoglobin A1C 7.1(H) <6.5 % LAB CHEMISTRY METHOD 05/17/2024 1:30 PM EDT [facility] Mean Bld Glu Estim. 157 mg/dL LAB CHEMISTRY METHOD 05/17/2024 1:30 PM EDT [facility] Blood Venous blood specimen / Unknown Venipuncture / Unknown 05/17/2024 5:37 AM EDT 05/17/2024 9:43 AM EDT Laurence Florence MD LAB BLOOD ORDERABLES Final Resu lt Performing Organization Address [facility] de Phone Number [facility] [address] [place] [address], [place] [phone] * (ABNORMAL) Complete blood count (05/17/2024 5:37 AM EDT) WBC 16.6(H) 4.8 - 10.8 K/[facility] LAB HEMETOLOGY METHOD 05/17/2024 10:40 AM EDT [facility] RBC 3.70(L) 4.50 - 5.50 M/[facility] LAB HEMETOLOGY METHOD 05/17/2024 10:40 AM EDT [facility] Hemoglobin 8.9(L) 13.5 - 17.5 g/dL LAB HEMETOLOGY METHOD 05/17/2024 10:40 AM [facility] Hematocrit 30.1(L) 42.0 - 54.0 % LAB HEMETOLOGY METHOD 05/17/2024 10:40 AM [facility] MCV 82.5 79.0 - 98.0 FL LAB HEMETOLOGY METHOD 05/17/2024 10:40 AM [facility] MCH 24.4(L) 27.0 - 32.0 pcg LAB HEMETOLOGY METHOD 05/17/2024 10:40 AM [facility] MCHC 29.6(L) 32.0 - 37.0 g/dL LAB HEMETOLOGY METHOD 05/17/2024 10:40 AM [facility] RDW 18.3(H) 11.0 - 15.0 % LAB HEMETOLOGY METHOD 05/17/2024 10:40 AM [facility] Platelets 431(H) 130 - 400 K/mcL LAB HEMETOLOGY METHOD 05/17/2024 10:40 AM [facility] MPV 10.6 7.0 - 11.0 FL LAB HEMETOLOGY METHOD 05/17/2024 10:40 AM [facility] NRBC 0.0 <1.0 % LAB HEMETOLOGY METHOD 05/17/2024 10:40 AM [facility] NRBC Absolute 0.00 <0.10 K/mcL LAB HEMETOLOGY METHOD 05/17/2024 10:40 AM [facility] Blood Venous blood specimen / Unknown Venipuncture / Unknown 05/17/2024 5:37 AM EDT 05/17/2024 9:43 AM EDT us Laurence Florence MD LAB BLOOD ORDERABLES Final Resu lt [facility] ([email or web address] [address] [place] [address], documented in this encounter Visit Diagnoses Diagnosis Type 2 diabetes mellitus without complications End stage renal disease (CMS/HCC) End stage renal disease documented in this encounter Care Teams Training Executive Relationship Specialty Start Date End Date Cass Turcios MD [address] [place] [address] [address] [place] [address] PCP - General Geriatric Medicine 04/02/24 documented as of this encounter
--- OUTSIDE RECORDS SUMMARY | 2024-06-06 15:18 | XMS_ITS | Encounter Summary ---
Author Organization [facility] Address [address] [place] [address] Care Team Providers Care Stack Attendant Name Role Phone Cass Turcios MD Primary Care Provider [phone] Encounter Details Date Type Department Care Team ([facility] st Contact Info) Description 05/21/2024 Lab Requisition [facility] - Main Lab [address] [facility] [place] [address] Laurence Florence MD [address] [place] [id number] Chronic combined systolic (congestive) and diastolic (congestive) [...] your loved ones. For example, child care director or elderly care for an older [...] K/mcL LAB HEMETOLOGY [facility] RBC 3.80(L) 4.50 - 5.50 M/mcL LAB HEMETOLOGY METHOD 05/21/2024 12:[address] [facility] Hemoglobin 9.5(L) 13.5 - 17.5 g/dL LAB HEMETOLOGY METHOD 05/21/2024 12:[address] [facility] Hematocrit 33.1(L) 42.0 - 54.0 % LAB HEMETOLOGY METHOD 05/21/2024 12:[address] [facility] MCV 87.1 79.0 - 98.0 FL LAB HEMETOLOGY METHOD 05/21/2024 12:[address] [facility] MCH 25.0(L) 27.0 - 32.0 pcg LAB HEMETOLOGY METHOD 05/21/2024 12:[address] [facility] MCHC 28.7(L) 32.0 - 37.0 g/dL LAB HEMETOLOGY METHOD 05/21/2024 12:[address] [facility] RDW 19.6(H) 11.0 - 15.0 % LAB HEMETOLOGY METHOD 05/21/2024 12:[address] [facility] Platelets 447(H) 130 - 400 K/mcL LAB HEMETOLOGY METHOD 05/21/2024 12[facility] MPV 11.3(H) 7.0 - 11.0 FL LAB HEMETOLOGY METHOD 05/21/2024 12:[address] [facility] NRBC 0.0 <1.0 % LAB HEMETOLOGY METHOD 05/21/2024 12:[address] [facility] NRBC Absolute 0.00 <0.10 K/mcL LAB HEMETOLOGY METHOD 05/21/2024 12:[address] [facility] Neutrophils Relative 76.8 % LAB HEMETOLOGY METHOD 05/21/2024 12:[address] [facility] Lymphocytes Relative 13.0 % LAB HEMETOLOGY METHOD 05/21/2024 12:[address] [facility] Monocytes Relative 7.0 % LAB HEMETOLOGY METHOD 05/21/2024 12:[address] [facility] Eosinophils Relative 2.0 % LAB HEMETOLOGY METHOD 05/21/2024 12:[address] [facility] Basophils Relative 0.4 % LAB HEMETOLOGY METHOD 05/21/2024 12:[address] [facility] Immature Granulocytes Relative 0.8 % LAB HEMETOLOGY METHOD 05/21/2024 12:[address] [facility] Neutrophils Absolute 11.05(H) 1.50 - 7.00 K/mcL LAB HEMETOLOGY METHOD 05/21/2024 12:[address] [facility] Lymphocytes Absolute 1.87 1.00 - 5.00 K/mcL LAB HEMETOLOGY METHOD 05/21/2024 12:[address] [facility] Monocytes Absolute 1.00 0.20 - 1.00 K/mcL LAB HEMETOLOGY METHOD 05/21/2024 12:[address] [facility] Eosinophils Absolute 0.29 0.00 - 0.50 K/[facility] LAB HEMETOLOGY METHOD 05/21/2024 12:49 PM EDT [facility] Basophils Absolute 0.06 0.00 - 0.20 K/[facility] LAB HEMETOLOGY METHOD 05/21/2024 12:49 PM EDT [facility] Immature Granulocytes Absolute 0.11(H) 0.00 - 0.03 K/[facility] LAB HEMETOLOGY METHOD 05/21/2024 12:49 PM EDT [facility] Blood Venous blood specimen / Unknown Venipuncture / Unknown 05/21/2024 5:40 AM EDT 05/21/2024 11:19 AM EDT us Laurence Florence MD LAB BLOOD ORDERABLES Final Resu lt [facility] [address] [place] [address], * (ABNORMAL) Basic metabolic panel (05/21/2024 5:40 AM EDT) Sodium 137 133 - 145 mmol/L LAB CHEMISTRY METHOD 05/21/2024 2:[address] [facility] Potassium 5.3 3.5 - 5.5 mmol/L LAB CHEMISTRY METHOD 05/21/2024 2:[address] [facility] Comment:Hemolysis present Chloride 99 96 - 110 mmol/L LAB CHEMISTRY METHOD 05/21/2024 2:[address] [facility] CO2 27 21 - 32 mmol/L LAB CHEMISTRY METHOD 05/21/2024 2:[address] [facility] Anion Gap 11 3 - 11 LAB CHEMISTRY METHOD 05/21/2024 2:[address] [facility] Glucose 76 70 - 100 mg/dL LAB CHEMISTRY METHOD 05/21/2024 2:[address] [facility] BUN 58(H) 5 - 25 mg/dL LAB CHEMISTRY METHOD 05/21/2024 2:38 PM EDT [facility] Creatinine 7.10(H) 0.70 - 1.30 mg/dL LAB CHEMISTRY METHOD 05/21/2024 2:38 PM EDT [facility] eGFR 8(L) >=60 mL/min/1. 73m2 LAB CHEMISTRY METHOD 05/21/2024 2:38 PM EDT [facility] Comment:Calculation based on the??Chronic Kidney Disease Epidemiology Collaboration (CKD-EPI) equation refit??without adjustment for race. BUN/Creatinine Ratio 8.2 LAB CHEMISTRY METHOD 05/21/2024 2:38 PM EDT [facility] Calcium 8.6 8.5 - 10.5 mg/dL LAB CHEMISTRY METHOD 05/21/2024 2:38 PM EDT [facility] Blood Venous blood specimen / Unknown Venipuncture / Unknown 05/21/2024 5:40 AM EDT 05/21/2024 11:19 AM EDT us Laurence Florence MD LAB BLOOD ORDERABLES Final Resu lt [facility] [address] [place] [address], documented in this encounter Visit Diagnoses Diagnosis Chronic combined systolic (congestive) and diastolic (congestive) heart failure End stage renal disease (CMS/HCC) End stage renal disease documented in this encounter Care Teams Stack Attendant Relationship Specialty Start Date End Date Cass Turcios MD [address] [place] [address] [address] [place] [address] PCP - General Geriatric Medicine 04/02/24 documented as of this encounter
--- OUTSIDE RECORDS SUMMARY | 2024-06-06 15:18 | XMS_ITS | Encounter Summary ---
Author Organization [facility], Address [address] [place] [address] Phone Care Team Providers Care Mediator Name Role Phone Jade Lewis MD Primary Care Provider [phone] Reason for Visit * Reason Comments Med Refill Encounter Details Date Type Department Care Team ([facility] st Contact Info) Description 06/25/2019 Refill [facility] [address] [place] [address] Mercedes Law MD Social History [...] on filedocumented in this encounter Care Teams Mediator Relationship Specialty Start Date End Date Jade Lewis MD [address] [place], [place] [phone] PCP - General Internal Medicine 04/25/22 documented as of this encounter
--- OUTSIDE RECORDS SUMMARY | 2024-06-06 15:18 | XMS_ITS | Clinical Summary ---
Author Organization [facility] Address [address] [facility] [address] [place] [address] Phone Care Team Providers Care Steel Placer Name Role Phone Jade Lewis MD Primary Care Provider + [phone] Allergies Active Allergy Reactions Criticality Noted Date [...] FOR WHEEZING 1 Active ergocalciferol 1.25 MG (94967 UT) capsule Take 1 capsule (50,000 Units total) by mouth 1 (one) time per week 4 capsule 5 1 Active cetirizine (ZyrTEC) 10 MG tablet Take 10 mg by mouth 1 (one) time each day Active Fluticasone-Salm eterol 100-50 MCG/ACT aerosol powder [facility] - [place], [place] - [id number] [place] [phone] 60.00 Each 5 30 INHALE 1 PUFF [...] mouth daily. Prescribed by Dr. Car Mcdonald (manager managed care). 2 Active aspirin (ST ANITRA) 81 MG [...] asthma 03/31/2022 Overview (09/15/2022): 08/19/21 Eval at [facility]. Increase Advair to 100/50 F/u 6 months. 05/24/22 Eval at [facility], Dr Funez. Recommends Trelegy once daily. Plan for sleep study to assess need for CPAP. 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 Permacath for dialysis removed and a new one replaced. Will get cefazolin x 4 weeks after dialysis. Lantus decreased to 30 units. Pt to continue on Eliquis for the next few weeks until his AV fistula is ready for utilization. Abdominal pain 03/19/2021 Bacteremia 03/19/2021 Venous thrombosis 01/04/2021 Overview (01/26/2021): 12/13/20-12/19/20 Admitted to [facility] for non-occulsive thrombosis in R internal jugular vein. Acute embolism and thrombosis of left internal j ugular vein 12/21/2020 End stage renal failure on dialysis 11/19/2020 Overview (10/05/2021): [facility] Hypocalcemia 11/13/2020 Angina pectoris 11/09/2020 Coagulation defect 11/09/2020 Headache 11/09/2020 Type 2 diabetes mellitus with diabetic nephropat hy 11/09/2020 Edema 09/28/2020 Iron deficiency anemia 12/24/2019 Chronic kidney disease stage 4 02/19/2019 Anemia in chronic kidney disease 02/19/2019 History of colonoscopy 03/30/2016 Overview (01/26/2021): Approximately 2010 in [place] per Pt 11/24/20 Eval at [facility], recommend colonoscopy. Resolved Problems Problem [...] diabetes mellitus 06/12/2015 Overview (01/26/2021): Followed by [facility]. Last visit 06/23/15, HbA1c = 11.1%. Has diabetic nephropathy, retinopathy, and peripheral neuropathy. Switched to Novolin 70/30. Taking 23 units TID with meals, may titrate up/down depending on BG readings over the next few days. They are trying to submit PA for Lyrica. 04/27/16 F/u with Estefani Kaur, at [facility]. Titrate Novolog 70/30 to 22 units with breakfast, 30 units with dinner. If no improvement or if ongoing hypoglycemia will consider switchign to Levemir and Humalog; F/u 3 months 11/03/20 F/u [facility]. A1c > 12% Continue Lanuts 52 and Humalog 4-8 untsi with meals. Consider using NPH during peritoneal dialysis Encounters Date Type Department Care Team Description 05/01/2024 Orders Only [facility] [address] [address] Car Mcdonald MD 2024 Orders Only [facility] [address] [address] Car Mcdonald MD 2024 Treatment [facility] [address] [place] [address] Arely Hernández APRN 04/24/2024 Treatment [facility] [address] [place] [address] Maloclm Taylor MD End stage renal disease; Dependence on renal dialysis 04/24/2024 Orders Only [facility] [address] [address] Car Mcdonald MD 04/22/2024 Orders Only [facility] [address] [address] Car Mcdonald MD 04/19/2024 Orders Only [facility] [address] [address] Car Mcdonald MD 04/19/2024 Treatment [facility] [address] [place] [address] Arely Hernández, COTTON WASHER 04/05/2024 Treatment [facility] [address] [place] [address] Arely Hernández, COTTON WASHER 04/03/2024 Orders Only [facility] [address] [address] Car Mcdonald MD 04/01/2024 Treatment [facility] [address] [place] [address] Malcolm Taylor MD 03/29/2024 Orders Only [facility] [address] [address] Car Mcdonald MD 03/15/2024 Treatment [facility] [address] [place] [address] Malcolm Taylor MD 03/13/2024 Orders Only [facility] [address] [address] Car Mcdonald MD 03/08/2024 Orders Only [facility] [address] [address] Car Mcdonald MD from Last 3 Months [...] at 65 Diabetes Mother Heart disease Mother [place] Stroke Mother grandfather Hypertension Sibling 1 Kidney [...] CHEMISTRY Routine 05/01/2024 HEMATOLOGY Routine 05/01/2024 [facility] RESULTS Routine 2024 HD KINETICS Routine [...] 03/08/2024 HEMATOLOGY Routine 03/08/2024 CHEMISTRY Routine 03/08/2024 from Last 3 Months Results * (ABNORMAL) HD KINETICS (05/01/2024) Only the most recent of5 resultswithin the time period is included. % Urea Reduction 59(L) 65 - 80 % [facility] 05/01/2024 05/02/2024 8:3 0 AM EST Narrative Resulting Agency Comment Specimen source: Plasma us Car Mcdonald MD LAB BLOOD ORDERABLES Final Re sult Performing Organization Address [facility] de Phone Number [facility] See order comments or contact performing lab Unknown, [place] * (ABNORMAL) POST CHEMISTRY (05/01/2024) Only the most recent of5 resultswithin the time period is included. BUN Post Dialysis 36(H) 6 - 19 mg/dL [facility] 05/01/2024 05/02/2024 8: 30 AM EST Narrative [facility] - 05/02/2024 Unless otherwise specified, test(s) performed at: [facility], [address] [place], [place] [id number] DINKEY ENGINE OPERATOR: Homero Garcia M.D. For any questions, please call customer service at FREQUENCY:OTHER Resulting Agency Comment Specimen source: Plasma Car Mcdonald MD LAB BLOOD ORDERABLES Final Re sult Performing Organization Address [facility] de Phone Number [facility] See order comments or contact performing lab Unknown, [place] * (ABNORMAL) HEMATOLOGY (05/01/2024) Only the most recent of7 resultswithin the time period is included. Hemoglobin 9.1(L) 14.0 - 18.0 g/dL [facility] Hemoglobin x 3 27.3(L) 42.0 - 54.0 % [facility] 05/01/2024 05/02/2024 8:3 7 AM EST Narrative [facility] - 05/02/2024 Unless otherwise specified, test(s) performed at: [facility], [address] [place] [id number] DINKEY ENGINE OPERATOR: Homero Garcia M.D. For any questions, please call customer service at FREQUENCY:OTHER Resulting Agency Comment Specimen source: Blood Car Mcdonald MD LAB BLOOD ORDERABLES Final Re sult Performing Organization Address [facility] de Phone Number [facility] See order comments or contact performing lab Unknown, [place] * (ABNORMAL) [facility] Chemistry (05/01/2024) Only the most recent of8 resultswithin the time period is included. BUN 88(H) 6 - 19 mg/dL [facility] 05/01/2024 05/02/2024 8:5 4 AM EST Narrative [facility] - 05/02/2024 Unless otherwise specified, test(s) performed at: [facility], [address] [place] [address] DINKEY ENGINE OPERATOR: Homero Garcia M.D. For any questions, please call customer service at FREQUENCY:OTHER Resulting Agency Comment Specimen source: Serum Car Mcdonald MD LAB BLOOD ORDERABLES Final Re sult [facility] See order comments or contact performing lab Unknown, [place] * [facility] Results (05/01/2024) Only the most recent of4 resultswithin the time period is included. eKt/V ([place]all) 0.87 [facility] eKdrt/V 0.85 [facility] eNPCR 1.07 [facility] spKt/V Gotch 1.12 [facility] ge Center PCR 74.63 [facility] nPCR_HD 1.23 [facility] eKt/V Gotch 0.85 [facility] e Center spKt/V (Daugirdas II) 1.10 [facility] WSTDKT/V 2.0 [facility] 05/01/2024 05/01/2024 [facility] Ordering Provider LAB BLOOD ORDERABLES Final Result [facility] Contact Performing lab Unknown, [place] * IMMUNO CHEMISTRY (04/19/2024) Only the most recent of2 resultswithin the time period is included. Hep B Surface Ag Negative Negative [facility] 04/19/2024 04/20/2024 12: 30 PM EST Narrative [facility] - 04/20/2024 Unless otherwise specified, test(s) performed at: [facility], [address] [place] [address] DINKEY ENGINE OPERATOR: Homero Garcia M.D. For any questions, please call customer service at FREQUENCY:MONTHLY Resulting Agency Comment Specimen source: Serum Car Mcdonald MD LAB BLOOD ORDERABLES Final Re sult [facility] See order comments or contact performing lab Unknown, [place] * (ABNORMAL) SPECIAL CHEMISTRY (03/08/2024) Hemoglobin A1C 7.9(H) 4.8 - 5.9 % [facility] 03/08/2024 03/09/2024 10: 45 AM EST Narrative Resulting Agency Comment Specimen source: Blood Car Mcdonald MD LAB BLOOD BANK TEST ORDERABLE S Final Result Performing Organization Address [facility] de Phone Number [facility] See order comments or contact performing lab Unknown, [place] from Last 3 Months Insurance [place]ICAID [place] [id number] [facility] [place]IC[place] [address] Care Teams Steel Placer Relationship Specialty Start Date End Date Jade Lewis MD [address] [place] [address] [id number] PCP - General Internal Medicine 04/25/22
--- OUTSIDE RECORDS SUMMARY | 2024-06-06 15:18 | XMS_ITS | Encounter Summary ---
Author Organization [facility] Address [address] [place] [address] Phone Care Team Providers Care Astrophysics Teacher Name Role Phone Jade Lewis MD Primary Care Provider + [phone] Reason for Visit * Reason Comments Med Refill Encounter Details Date Type Department Care Team (Late st Contact Info) Description 04/30/2021 Refill [facility] [address] [place] [phone] Alejandro Santana MD [address] [place] [phone] Social History Tobacco Use Types Packs/Day Years [...] on filedocumented in this encounter Care Teams Astrophysics Teacher Relationship Specialty Start Date End Date Jade Lewis MD [address] [place] [address] PCP - General Internal Medicine 04/25/22 documented as of this encounter
--- OUTSIDE RECORDS SUMMARY | 2024-06-06 15:18 | XMS_ITS | Encounter Summary ---
Author Organization [facility] Address [address] [place] [address] Care Team Providers Care Sportspersons Name Role Phone Cass Turcios MD Primary Care Provider [phone] Encounter Details Date Type Department Care Team (Late st Contact Info) Description 04/02/2024 Lab Requisition [facility] - Main Lab [address] [facility] [place] [address] Cass Turcios MD [address] [place] [address] End stage renal disease (CMS/HCC) Social History [...] mmol/L LAB CHEMISTRY METHOD 04/02/2024 10:35 AM [facility] Potassium 5.6(H) 3.5 - 5.5 mmol/L LAB CHEMISTRY METHOD 04/02/2024 10:35 AM [facility] Chloride 95(L) 96 - 110 mmol/L LAB CHEMISTRY METHOD 04/02/2024 10:35 AM [facility] CO2 32 21 - 32 mmol/L LAB CHEMISTRY METHOD 04/02/2024 10:35 AM [facility] Anion Gap 8 3 - 11 LAB CHEMISTRY METHOD 04/02/2024 10:35 AM [facility] Glucose 32(LL) 70 - 100 mg/dL LAB CHEMISTRY METHOD 04/02/2024 10:35 AM [facility] BUN 50(H) 5 - 25 mg/dL LAB CHEMISTRY METHOD 04/02/2024 10:35 AM [facility] Creatinine 7.72(H) 0.70 - 1.30 mg/dL LAB CHEMISTRY METHOD 04/02/2024 10:35 AM [facility] eGFR 7(L) >=60 mL/min/1. 73m2 LAB CHEMISTRY METHOD 04/02/2024 10:35 AM [facility] Comment:Calculation based on the??Chronic Kidney Disease Epidemiology Collaboration (CKD-EPI) equation refit??without adjustment for race. BUN/Creatinine Ratio 6.5 LAB CHEMISTRY METHOD 04/02/2024 10:35 AM [facility] Calcium 8.3(L) 8.5 - 10.5 mg/dL LAB CHEMISTRY METHOD 04/02/2024 10:35 AM [facility] Blood Venous blood specimen / Unknown Venipuncture / Unknown 04/02/2024 5:24 AM EST 04/02/2024 8:48 AM EST us Cass Turcios MD LAB BLOOD ORDERABLES Final Resul t [facility] [address] [place] [address], * (ABNORMAL) Complete blood count (04/02/2024 5:24 AM EST) WBC 26.2(H) 4.8 - 10.8 K/mcL LAB HEMETOLOGY METHOD 04/02/2024 9:47 AM [facility] RBC 4.10(L) 4.50 - 5.50 M/mcL LAB HEMETOLOGY METHOD 04/02/2024 9:47 AM [facility] Hemoglobin 9.4(L) 13.5 - 17.5 g/dL LAB HEMETOLOGY METHOD 04/02/2024 9:47 AM [facility] Hematocrit 31.2(L) 42.0 - 54.0 % LAB HEMETOLOGY METHOD 04/02/2024 9:47 AM [facility] MCV 76.1(L) 79.0 - 98.0 FL LAB HEMETOLOGY METHOD 04/02/2024 9:47 AM [facility] MCH 22.9(L) 27.0 - 32.0 pcg LAB HEMETOLOGY METHOD 04/02/2024 9:47 AM [facility] MCHC 30.1(L) 32.0 - 37.0 g/dL LAB HEMETOLOGY METHOD 04/02/2024 9:47 AM [facility] RDW 17.1(H) 11.0 - 15.0 % LAB HEMETOLOGY METHOD 04/02/2024 9:47 AM [facility] Platelets 349 130 - 400 K/mcL LAB HEMETOLOGY METHOD 04/02/2024 9:47 AM [facility] MPV 11.4(H) 7.0 - 11.0 FL LAB HEMETOLOGY METHOD 04/02/2024 9:47 AM EST [facility] NRBC 0.0 <1.0 % LAB HEMETOLOGY METHOD 04/02/2024 9:47 AM EST [facility] NRBC Absolute 0.00 <0.10 K/mcL LAB HEMETOLOGY METHOD 04/02/2024 9:47 AM EST [facility] Blood Venous blood specimen / Unknown Venipuncture / Unknown 04/02/2024 5:24 AM EST 04/02/2024 8:48 AM EST us Cass Turcios MD LAB BLOOD ORDERABLES Final Resul t [facility] [address] [place] [address], documented in this encounter Visit Diagnoses Diagnosis End stage renal disease (CMS/[facility]) End stage renal disease documented in this encounter Care Teams Sportspersons Relationship Specialty Start Date End Date Cass Turcios MD [address] [place] [address] [address] [place] [address] PCP - General Geriatric Medicine 04/02/24 documented as of this encounter
--- OUTSIDE RECORDS SUMMARY | 2024-06-06 15:18 | XMS_ITS | Encounter Summary ---
Author Organization [facility] Address [address] [place] [address] Phone Care Team Providers Care Certified Dental Assistant Name Role Phone Jade Lewis MD Primary Care Provider [phone] Reason for Visit * Reason Comments Med Refill Encounter Details Date Type Department Care Team (Late st Contact Info) Description 10/27/2023 Refill [facility] [address] [place] [phone] Malcolm Taylor MD [address] [place] [address] [place] [address] Social History Tobacco Use Types Packs/Day Years [...] on filedocumented in this encounter Care Teams Certified Dental Assistant Relationship Specialty Start Date End Date Jade Lewis MD [address] [place] [id number] PCP - General Internal Medicine 04/25/22 documented as of this encounter
--- OUTSIDE RECORDS SUMMARY | 2024-06-06 15:18 | XMS_ITS | Encounter Summary ---
Author Organization [facility], Address [address] [place] [address] Phone Care Team Providers Care Polisher Numeral Name Role Phone Jade Lewis MD Primary Care Provider + [phone] Reason for Visit * Reason Comments Med Refill Encounter Details Date Type Department Care Team ([facility] st Contact Info) Description 10/18/2023 Refill [facility] [address] [place] [phone] Malcolm Taylor MD [address] [place] [address] [place] [phone] Social History Tobacco Use Types Packs/Day Years [...] 10/19/2023 Unless otherwise specified, test(s) performed at: [facility], [address] [place] [address] CLINICAL RESEARCH ASSOCIATE: Homero Garcia M.D. For any questions, please call customer service at FREQUENCY:OTHER Resulting Agency Comment Specimen source: Blood us Car Mcdonald MD LAB BLOOD ORDERABLES Final Re sult [facility] See order comments or contact performing lab Unknown, [place] documented in this encounter Visit Diagnoses Not on filedocumented in this encounter Care Teams Polisher Numeral Relationship Specialty Start Date End Date Jade Lewis MD [address] [place] [address] PCP - General Internal Medicine 04/25/22 documented as of this encounter
--- OUTSIDE RECORDS SUMMARY | 2024-06-06 15:18 | XMS_ITS | Encounter Summary ---
Author Organization [facility] Address [address] [place] [address] Care Team Providers Care Occupational Therapy Teacher Name Role Phone Cass Turcios MD Primary Care Provider [phone] Encounter Details Date Type Department Care Team (Late st Contact Info) Description 05/30/2024 Lab Requisition [facility] - Main Lab [address] [facility] [place] [address] Laurence Florence MD [address] [place] [id number] Chronic respiratory failure with hypoxia (CMS/HCC); Encounter [...] for your loved ones. For example, childcare attendant or elderly care for an older [...] the circulatory system Peripheral vascular disease, unspecified ([facility]/HCC) SEDIMENTATION RATE Routine 05/30/2024 7: 36 AM [...] this encounter Results * Culture blood (05/30/2024 7:36 AM EDT) Culture, Blood No growth at 5 days LAB MICROBIOLOGY METHOD 06/04/2024 9:01 AM EDT [facility] Blood Venipuncture / Unknown 05/30/2024 7:36 AM EDT 05/30/2024 8:11 AM EDT us Laurence Florence MD LAB MICROBIOLOGY - GENERAL ORDE VANNESSA Final Result [facility] LAB [address] [place] [address], * Lactate (05/30/2024 7:36 AM EDT) Lactate 0.6 0.4 - 2.0 mmol/L LAB CHEMISTRY METHOD 05/30/2024 8:47 AM EDT [facility] LAB Blood Venous blood specimen / Unknown Venipuncture / Unknown 05/30/2024 7:36 AM EDT 05/30/2024 8:11 AM EDT us Laurence Florence MD LAB BLOOD ORDERABLES Final Resu lt Performing Organization Address [facility]/ZIP Co de Phone Number [facility] LAB [address] [place] [address], [place] [phone] * (ABNORMAL) C-reactive protein (05/30/2024 7:36 AM EDT) [facility] [address] C-Reactive Protein 11.60(H) <=0.50 mg/dL LAB CHEMISTRY METHOD 05/30/2024 8:51 AM EDT [facility] Blood Venous blood specimen / Unknown Venipuncture / Unknown 05/30/2024 7:36 AM EDT 05/30/2024 8:11 AM EDT us Laurence Florence MD LAB BLOOD ORDERABLES Final Resu lt Performing Organization Address City/[facility]/ZIP Co de Phone Number [facility] [address] [place] [address], [place] [phone] * (ABNORMAL) Sedimentation rate (05/30/2024 7:36 AM EDT) [facility] [address] Sed Rate >130(H) 0 - 20 mm/hr LAB HEMETOLOGY METHOD 05/30/2024 8:57 AM EDT [facility] Blood Venous blood specimen / Unknown Venipuncture / Unknown 05/30/2024 7:36 AM EDT 05/30/2024 8:11 AM EDT Narrative [facility] - 05/30/2024 8:57 AM EDT Rechecked. us Laurence Florence MD LAB BLOOD ORDERABLES Final Resu lt [facility] [address] [place] [address], [place] [phone] * (ABNORMAL) Comprehensive metabolic panel (05/30/2024 7:36 AM EDT) Sodium 140 133 - 145 mmol/L LAB CHEMISTRY METHOD 05/30/2024 9:08 AM [facility] Potassium 4.2 3.5 - 5.5 mmol/L LAB CHEMISTRY METHOD 05/30/2024 9:08 AM [facility] Chloride 104 96 - 110 mmol/L LAB CHEMISTRY METHOD 05/30/2024 9:08 AM [facility] CO2 28 21 - 32 mmol/L LAB CHEMISTRY METHOD 05/30/2024 9:08 AM [facility] Anion Gap 8 3 - 11 LAB CHEMISTRY METHOD 05/30/2024 9:08 AM [facility] Glucose 77 70 - 100 mg/dL LAB CHEMISTRY METHOD 05/30/2024 9:08 AM [facility] BUN 35(H) 5 - 25 mg/dL LAB CHEMISTRY METHOD 05/30/2024 9:08 AM [facility] Creatinine 5.30(H) 0.70 - 1.30 mg/dL LAB CHEMISTRY METHOD 05/30/2024 9:08 AM [facility] eGFR 11(L) >=60 mL/min/1. 73m2 LAB CHEMISTRY METHOD 05/30/2024 9:08 AM [facility] LAB Comment:Calculation based on the??Chronic Kidney Disease Epidemiology Collaboration (CKD-EPI) equation refit??without adjustment for race. BUN/Creatinine Ratio 6.6 LAB CHEMISTRY METHOD 05/30/2024 9:08 AM [facility] Calcium 9.0 8.5 - 10.5 mg/dL LAB CHEMISTRY METHOD 05/30/2024 9:08 AM [facility] AST (SGOT) 10 10 - 42 unit/L LAB CHEMISTRY METHOD 05/30/2024 9:08 AM [facility] ALT (SGPT) 13 10 - 60 unit/L LAB CHEMISTRY METHOD 05/30/2024 9:08 AM [facility] Alkaline Phosphatase 141(H) 42 - 121 unit/L LAB CHEMISTRY METHOD 05/30/2024 9:08 AM [facility] Total Protein 6.3 6.0 - 8.0 g/dL LAB CHEMISTRY METHOD 05/30/2024 9:08 AM [facility] Albumin 2.5(L) 3.2 - 5.0 g/dL LAB CHEMISTRY METHOD 05/30/2024 9:08 AM [facility] Total Bilirubin 0.5 0.0 - 1.4 mg/dL LAB CHEMISTRY METHOD 05/30/2024 9:08 AM [facility] Blood Venous blood specimen / Unknown Venipuncture / Unknown 05/30/2024 7:36 AM EDT 05/30/2024 8:11 AM EDT us Laurence Florence MD LAB BLOOD ORDERABLES Final Resu lt [facility] [address] [place] [address], * (ABNORMAL) Complete blood count (05/30/2024 7:36 AM EDT) WBC 9.7 4.8 - 10.8 K/mcL LAB HEMETOLOGY METHOD 05/30/2024 8:29 AM T [facility] RBC 3.20(L) 4.50 - 5.50 M/mcL LAB HEMETOLOGY METHOD 05/30/2024 8:29 AM [facility] Hemoglobin 7.7(L) 13.5 - 17.5 g/dL LAB HEMETOLOGY METHOD 05/30/2024 8:29 AM [facility] Hematocrit 26.0(L) 42.0 - 54.0 % LAB HEMETOLOGY METHOD 05/30/2024 8:29 AM [facility] MCV 81.5 79.0 - 98.0 FL LAB HEMETOLOGY METHOD 05/30/2024 8:29 AM [facility] MCH 24.1(L) 27.0 - 32.0 pcg LAB HEMETOLOGY METHOD 05/30/2024 8:29 AM [facility] MCHC 29.6(L) 32.0 - 37.0 g/dL LAB HEMETOLOGY METHOD 05/30/2024 8:29 AM [facility] RDW 17.8(H) 11.0 - 15.0 % LAB HEMETOLOGY METHOD 05/30/2024 8:29 AM [facility] Platelets 244 130 - 400 K/mcL LAB HEMETOLOGY METHOD 05/30/2024 8:29 AM [facility] MPV 11.1(H) 7.0 - 11.0 FL LAB HEMETOLOGY METHOD 05/30/2024 8:29 AM [facility] NRBC 0.0 <1.0 % LAB HEMETOLOGY METHOD 05/30/2024 8:29 AM [facility] NRBC Absolute 0.00 <0.10 K/mcL LAB HEMETOLOGY METHOD 05/30/2024 8:29 AM [facility] Blood Venous blood specimen / Unknown Venipuncture / Unknown 05/30/2024 7:36 AM EDT 05/30/2024 8:11 AM EDT us Laurence Florence MD LAB BLOOD ORDERABLES Final Resu lt [facility] [address] [place] [address], documented in this encounter Visit Diagnoses Diagnosis Chronic respiratory failure with hypoxia Encounter for orthopedic aftercare following surgical amputation Encounter for surgical aftercare following surgery on the circulatory system Peripheral vascular disease, unspecified (CMS/HCC) Peripheral vascular disease, unspecified documented in this encounter Care Teams Occupational Therapy Teacher Relationship Specialty Start Date End Date Cass Turcios MD [address] [facility] [address] [place] [address] PCP - General Geriatric Medicine 04/02/24 documented as of this encounter
--- OUTSIDE RECORDS SUMMARY | 2024-06-06 15:18 | XMS_ITS | Encounter Summary ---
Author Organization [facility], Address [address] [place] [address] Phone Care Team Providers Care Parlor Chaperone Name Role Phone Jade Lewis MD Primary Care Provider + [phone] Reason for Visit * Reason Comments Med Refill Encounter Details Date Type Department Care Team ([facility] st Contact Info) Description 10/28/2020 Refill [facility] [address] [place] [phone] Alejandro Santana MD [address] [place] [phone] Social History Tobacco Use Types Packs/Day Years [...] on filedocumented in this encounter Care Teams Parlor Chaperone Relationship Specialty Start Date End Date Jade Lewis MD [address] [place] [phone] PCP - General Internal Medicine 04/25/22 documented as of this encounter
--- OUTSIDE RECORDS SUMMARY | 2024-06-06 15:18 | XMS_ITS | Encounter Summary ---
Author Organization [facility] Address [address] [place] [address] Care Team Providers Care Faculty Neuropsychologist Name Role Phone Cass Turcios MD Primary Care Provider [phone] Encounter Details Date Type Department Care Team (Late st Contact Info) Description 03/25/2024 Lab Requisition [facility] - Main Lab [address] [facility] [place] [address] Cass Turcios MD [address] [place] [address] Anemia, unspecified; Chronic diastolic (congestive) heart failure [...] care for your loved ones. For example, childrens club attendant or elderly care for an older [...] mmol/L LAB CHEMISTRY METHOD 03/25/2024 2:44 PM [facility] Potassium 7.3(HH) 3.5 - 5.5 mmol/L LAB CHEMISTRY METHOD 03/25/2024 2:44 PM [facility] Chloride 101 96 - 110 mmol/L LAB CHEMISTRY METHOD 03/25/2024 2:44 PM [facility] CO2 15(L) 21 - 32 mmol/L LAB CHEMISTRY METHOD 03/25/2024 2:44 PM [facility] Anion Gap 17(H) 3 - 11 LAB CHEMISTRY METHOD 03/25/2024 2:44 PM [facility] Glucose 62(L) 70 - 100 mg/dL LAB CHEMISTRY METHOD 03/25/2024 2:44 PM [facility] BUN 112(H) 5 - 25 mg/dL LAB CHEMISTRY METHOD 03/25/2024 2:44 PM [facility] Creatinine 12.80(HH) 0.70 - 1.30 mg/dL LAB CHEMISTRY METHOD 03/25/2024 2:44 PM [facility] LAB eGFR 4(L) >=60 mL/min/1 .73m2 LAB CHEMISTRY METHOD 03/25/2024 2:44 PM [facility] LAB Comment:Calculation based on the??Chronic Kidney Disease Epidemiology Collaboration (CKD-EPI) equation refit??without adjustment for race. BUN/Creatinine Ratio 8.8 LAB CHEMISTRY METHOD 03/25/2024 2:44 PM [facility] Calcium 8.8 8.5 - 10.5 mg/dL LAB CHEMISTRY METHOD 03/25/2024 2:44 PM [facility] AST (SGOT) 21 10 - 42 unit/L LAB CHEMISTRY METHOD 03/25/2024 2:44 PM [facility] ALT (SGPT) 9(L) 10 - 60 unit/L LAB CHEMISTRY METHOD 03/25/2024 2:44 PM [facility] Alkaline Phosphatase 172(H) 42 - 121 unit/L LAB CHEMISTRY METHOD 03/25/2024 2:44 PM [facility] Total Protein 6.9 6.0 - 8.0 g/dL LAB CHEMISTRY METHOD 03/25/2024 2:44 PM [facility] Albumin 2.7(L) 3.2 - 5.0 g/dL LAB CHEMISTRY METHOD 03/25/2024 2:44 PM [facility] Total Bilirubin 0.4 0.0 - 1.4 mg/dL LAB CHEMISTRY METHOD 03/25/2024 2:44 PM [facility] Blood Venous blood specimen / Unknown Venipuncture / Unknown 03/25/2024 5:09 AM EST 03/25/2024 11:52 AM EST us Cass Turcios MD LAB BLOOD ORDERABLES Final Resul t [facility] [address] [place] [address], * (ABNORMAL) Complete blood count (03/25/2024 5:09 AM EST) WBC 14.1(H) 4.8 - 10.8 K/mcL LAB HEMETOLOGY METHOD 03/25/2024 2:27 PM [facility] RBC 4.60 4.50 - 5.50 M/mcL LAB HEMETOLOGY METHOD 03/25/2024 2:27 PM [facility] Hemoglobin 10.5(L) 13.5 - 17.5 g/dL LAB HEMETOLOGY METHOD 03/25/2024 2:27 PM [facility] Hematocrit 35.9(L) 42.0 - 54.0 % LAB HEMETOLOGY METHOD 03/25/2024 2:27 PM [facility] MCV 77.7(L) 79.0 - 98.0 FL LAB HEMETOLOGY METHOD 03/25/2024 2:27 PM [facility] MCH 22.7(L) 27.0 - 32.0 pcg LAB HEMETOLOGY METHOD 03/25/2024 2:27 PM [facility] MCHC 29.2(L) 32.0 - 37.0 g/dL LAB HEMETOLOGY METHOD 03/25/2024 2:27 PM [facility] RDW 17.5(H) 11.0 - 15.0 % LAB HEMETOLOGY METHOD 03/25/2024 2:27 PM [facility] Platelets 254 130 - 400 K/mcL LAB HEMETOLOGY METHOD 03/25/2024 2:27 PM [facility] MPV LAB HEMETOLOGY METHOD 03/25/2024 2:27 PM [facility] Comment:Not Measured NRBC 0.0 <1.0 % LAB HEMETOLOGY METHOD 03/25/2024 2:27 PM [facility] LAB NRBC Absolute 0.00 <0.10 K/mcL LAB HEMETOLOGY METHOD 03/25/2024 2:27 PM [facility] Blood Venous blood specimen / Unknown Venipuncture / Unknown 03/25/2024 5:09 AM EST 03/25/2024 11:52 AM EST us Cass Turcios MD LAB BLOOD ORDERABLES Final Resul t [facility] [address] [place] [address], documented in this encounter Visit Diagnoses Diagnosis Anemia, unspecified Chronic diastolic (congestive) heart failure Other pericardial effusion (noninflammatory) End stage renal disease (CMS/HCC) End stage renal disease documented in this encounter Additional Health Concerns Infection Onset Date Last Indicated Resolved Time Respiratory Rule-Out 03/25/2024 03/25/2024 025 8:14 PM EST documented as of this encounter Care Teams Faculty Neuropsychologist Relationship Specialty Start Date End Date Cass Turcios MD [address] [facility] [address] [place] [address] PCP - General Geriatric Medicine 04/02/24 documented as of this encounter
--- OUTSIDE RECORDS SUMMARY | 2024-06-06 15:18 | XMS_ITS | Encounter Summary ---
Author Organization [facility], Address [address] [place] [address] Phone Care Team Providers Care Business Education Professor Name Role Phone Jade Lewis MD Primary Care Provider [phone] Reason for Visit * Reason Comments Med Refill Encounter Details Date Type Department Care Team (Late st Contact Info) Description 12/24/2022 Refill [facility] [address] [place] [phone] Car Mcdonald MD [facility] [address] [place] [phone] Social History Tobacco Use Types Packs/Day Years [...] filedocumented in this encounter Care Teams Business Education Professor Relationship Specialty Start Date End Date Jade Lewis MD [address] [place] [id number] PCP - General Internal Medicine 04/25/22 documented as of this encounter
--- OUTSIDE RECORDS SUMMARY | 2024-06-06 15:18 | XMS_ITS | Encounter Summary ---
Author Organization [facility], Address [address] [place] [address] Phone Care Team Providers Care Continuous Vulcanizing Machine Operator Name Role Phone Jade Lewis MD Primary Care Provider + [phone] Reason for Visit * Reason Comments Med Refill Encounter Details Date Type Department Care Team ([facility] st Contact Info) Description 11/27/2020 Refill [facility] [address] [place] [phone] Alejandro Santana MD [address] [place] [phone] Social History Tobacco Use Types Packs/Day Years [...] on filedocumented in this encounter Care Teams Continuous Vulcanizing Machine Operator Relationship Specialty Start Date End Date Jade Lewis MD [address] [place] [id number] PCP - General Internal Medicine 04/25/22 documented as of this encounter
--- OUTSIDE RECORDS SUMMARY | 2024-06-06 15:18 | XMS_ITS | Encounter Summary ---
Author Organization [facility], Address [address] [place] [address] Phone Care Team Providers Care Insulation Foreman Name Role Phone Jade Lewis MD Primary Care Provider + [phone] Reason for Visit * Reason Comments Med Refill Encounter Details Date Type Department Care Team (Late st Contact Info) Description 06/13/2023 Refill [facility] [address] [place] [phone] Malcolm Taylor MD [address] [place] [phone] Social History Tobacco Use Types Packs/Day Years [...] on filedocumented in this encounter Care Teams Insulation Foreman Relationship Specialty Start Date End Date Jade Lewis MD [address] [place] [address] PCP - General Internal Medicine 04/25/22 documented as of this encounter
== END 2024-06-06 14:42 | disposition home or self-care (01) ==
LOC: HO.HVS 13:52
PROVIDERS: PCP Nurse Practitioner; Visit Provider Surgery Vascular Surgery
DX: T87.9 Unspecified complications of amputation stump (principal)
CPT/HCPCS: 99024

== ENCOUNTER 2024-06-11 08:39 | Outpatient (AMB) | payer MEDICARE, MEDICAID, SELFPAY ==
--- NOTE | 2024-06-11 08:48 | MHC.OFFVIS ---
Vital Signs 06/11/24 08:52 Height 5 ft 4 in Weight 165 lb BMI 28.3 Intake Visit Reasons: N/P right MF &IF necrosis Intake Note: Beau 69 yr old right hand dominant male presents today for a new patient visit with his PCP/ son Nestor for his right middle and index finger. His son states that he had gangrene in his right leg and had to have an amputation and feels like it had spread to his fingers about 6 months ago. Patient states this causes him pain and is not able to use his right hand at all, he is not able to make a close fist, no sensation or feeling in his finger. [employer] Name: Brianna CCMA/LM Allergies Iodinated Contrast Media [Contrast Dye] Allergy (Severe, Verified 06/11/24 08:58) Facial Swelling hydralazine Adverse Reaction (Severe, Verified 06/11/24 08:58) vasculitis HPI HPI N/P right MF &IF necrosis : Details: Beau is a 69 year old right hand dominant Diabetic Citizen [place] speaking men, here with his son, with complaints of possible right hand gangrene. He resides in a rehab center at this time. He complains of pain & limited use of his right index & middle fingers for ~6 months now. 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 Cannon. He also says he has no sensation in these fingers. He is worried this gangrene may have spread to his fingers somehow. He has ESRD, CHF, PVD, and Diabetes. He is on Dialysis 3x weekly. He says he has a brother that is an army medic, but he was not able to be reached on the phone today. [facility] Medical History (Updated 06/11/24 @ 09:59 by Rolando Mosqueda) Type 2 diabetes mellitus Dry gangrene PVD (peripheral vascular disease) ESRD needing dialysis Above knee amputation of right lower extremity Left ventricular systolic dysfunction (LVSD) Postop check Acute pericardial effusion Right sided weakness Dehiscence of wound Peripheral arterial disease Cellulitis of right foot Hypertension HFrEF (heart failure with reduced ejection fraction) ESRD (end stage renal disease) Chronic combined systolic and diastolic CHF (congestive heart failure) Chronic pericardial effusion Arthritis Asthma Restless leg syndrome Acute on chronic systolic and diastolic heart failure, NYHA class 3 Anemia ESRD (end stage renal disease) Occlusive thrombus Pulmonary edema ROBERT (obstructive sleep apnea) Hyperlipidemia Hypertension A-V fistula ESRD on dialysis Falling Surgical History Status post creation of pericardial window Postop check Hx of right BKA Status post transmetatarsal amputation of right foot History of transmetatarsal amputation of foot History of surgery H/O colonoscopy Recurrent pleural effusion Pleural effusion on right (07/13/23) Family History Father No problems noted. Mother No problems noted. 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 Review of Systems Const All systems reviewed & are unremarkable except as noted in HPI and below Physical Exam Vital Signs: BMI result Body Mass Index 28.3 Const General: cooperative, healthy appearing and no acute distress Orientation/consciousness: patient oriented x3 HEENT Head: Yes normocephalic and Yes atraumatic Eyes EOM: EOMs intact bilaterally Resp Effort & Inspection: normal respiratory effort and able to speak in complete sentences Cardio Jugular venous distension: no JVD Skin General skin exam: turgor normal Rashes: no rashes Neuro General: patient oriented x3 Extrem Other: Evaluation of Right Upper Extremity: The patient is alert, oriented, and in no acute distress He is in a wheelchair, and has a high above-knee amputation with a dressing in place. He is seen today with his adult son who speaks Citizen [place] and [place] in axis and hearing instrument specialist. ROM: He is not able to make a fist today in clinic He is able to make a fist with his left hand He has necrosis of both his right index & middle fingers, with hard black necrotic tissue Index finger: necrosis to the dorsal ulnar aspect at the distal phalanx level, between the DIP joint & nail Middle finger: Necrosis involving the entire pad of the finger, extending radially and volarly to proximal to the DIP joint Radiographs: 3 views of the right hand were taken and viewed by me today in clinic. They show calcified outlines of all blood vessels of his hand, extending into his forearm. There is also evidence of soft tissue loss from the tip of the middle finger. Psych Appearance: grossly normal Affect: normal affect Attitude: cooperative Assessment & Plan Assessment & Plan (1) Necrosis of finger: Comment: R IF & MF Code(s): I96 - Gangrene, not elsewhere classified Category: Medical (2) Dry gangrene: Comment: R IF & MF Code(s): I96 - Gangrene, not elsewhere classified Category: Medical (3) Acute on chronic systolic and diastolic heart failure, NYHA class 3: Code(s): I50.43 - Acute on chronic combined systolic (congestive) and diastolic (congestive) heart failure Category: Medical (4) PVD (peripheral vascular disease): Code(s): I73.9 - Peripheral vascular disease, unspecified Category: Medical (5) ESRD needing dialysis: Code(s): N18.6 - End stage renal disease; Z99.2 - Dependence on renal dialysis Category: Medical (6) Numbness and tingling in right hand: Code(s): R20.0 - Anesthesia of skin; R20.2 - Paresthesia of skin Category: Medical (7) Type 2 diabetes mellitus: Comment: taking insulin-no oral Rx Code(s): E11.9 - Type 2 diabetes mellitus without complications Category: Medical Plan Assessment & Plan: 1. Right Index finger tip necrosis Dorsal aspect at distal phalanx level 2. Right middle finger necrosis involving the pad from the tip to proximal to the D IP joint Secondary to PVD I educated him and his son about this condition I discussed operative and non-operative treatment options I recommend amputation surgery, and he is in agreement. He is currently recovering from a right AKA by Dr. Cannon, DOS: 05/09/24, and he is working on better managing his Diabetes. He would benefit from a Middle finger middle phalanx level amputation, and an index finger middle phalanx/DIP joint level amputation He has PVD, CHF, and ESRD. He is on Dialysis 3X weekly, and follows with Dr. Cannon. He is a Diabetic, and does not know his most recent HgA1c. They will need an updated HgA1c that is hopefully <8.1%, or at least close, to proceed with surgery, and they expressed understanding At present there is no evidence of infection, the fingertips are not particularly painful and this condition appears relatively stable for the time being. He will follow up in 4 weeks to see how he is doing. They know they can follow up sooner if they have any concerns. Scribed for Beatriz Rosales MD by Rolando Mosqueda, medical front desk specialist, on 06/11/24 at 9:45 AM, EST. Coding Level of Care Code New Pt Level 4 (18876) Diagnoses Necrosis of finger I96 Dry gangrene I96 Acute on chronic systolic and diastolic heart failure, NYHA class 3 I50.43 PVD (peripheral vascular disease) I73.9 ESRD needing dialysis N18.6; Z99.2 Numbness and tingling in right hand R20.0; R20.2 Type 2 diabetes mellitus E11.9
[2024-06-11 08:52] VITALS: BMI 28.3
--- OUTSIDE RECORDS SUMMARY | 2024-06-11 09:09 | XMS_ITS | Encounter Summary ---
Author Organization [facility], Address [address] [place] [address] Phone Care Team Providers Care Morning Babysitter Name Role Phone Jade Lewis MD Primary Care Provider [phone] Encounter Details Date Type Department Care Team (Late st Contact Info) Description 10/28/2019 Orders Only [facility] [address] [phone] [place] [address] [place] [phone] Social History Tobacco Use Types Packs/Day Years [...] on filedocumented in this encounter Care Teams Morning Babysitter Relationship Specialty Start Date End Date Jade Lewis MD [address] [place] [address] PCP - General Internal Medicine 04/25/22 documented as of this encounter
--- OUTSIDE RECORDS SUMMARY | 2024-06-11 09:09 | XMS_ITS | Encounter Summary ---
Author Organization [facility], Address [address] [place] [address] Phone Care Team Providers Care Supervisor Bottle Machines Name Role Phone Jade Lewis MD Primary Care Provider + [phone] Reason for Visit * Reason Comments Med Refill Encounter Details Date Type Department Care Team ([facility] st Contact Info) Description 10/18/2023 Refill [facility] [address] [place] [phone] Malcolm Taylor MD [address] [place] [address] [place] [phone] Social History Tobacco Use Types Packs/Day Years [...] 10/19/2023 Unless otherwise specified, test(s) performed at: [facility], [address] [place] [address] [employer] SUPERVISOR: Homero Garcia M.D. For any questions, please call customer service at FREQUENCY:OTHER Resulting Agency Comment Specimen source: Blood us Car Mcdonald MD LAB BLOOD ORDERABLES Final Re sult [facility] See order comments or contact performing lab Unknown, [place] documented in this encounter Visit Diagnoses Not on filedocumented in this encounter Care Teams Supervisor Bottle Machines Relationship Specialty Start Date End Date Jade Lewis MD [address] [place] [address] PCP - General Internal Medicine 04/25/22 documented as of this encounter
--- OUTSIDE RECORDS SUMMARY | 2024-06-11 09:09 | XMS_ITS | Encounter Summary ---
Author Organization [facility], Address [address] [place] [address] Phone Care Team Providers Care Auditor In Charge Name Role Phone Jade Lewis MD Primary Care Provider + [phone] Reason for Visit * Reason Comments Med Refill Encounter Details Date Type Department Care Team (Late st Contact Info) Description 04/27/2019 Refill [facility] [address] [place] [address] Mercedes Law MD Social History [...] on filedocumented in this encounter Care Teams Auditor In Charge Relationship Specialty Start Date End Date Jade Lewis MD [address] [place], [place] [phone] PCP - General Internal Medicine 04/25/22 documented as of this encounter
--- OUTSIDE RECORDS SUMMARY | 2024-06-11 09:09 | XMS_ITS | Encounter Summary ---
Author Organization [facility] Address [address] [place] [address] Phone Care Team Providers Care Banker Mason Name Role Phone Jade Lewis MD Primary Care Provider + [phone] Reason for Visit * Reason Comments Med Refill Encounter Details Date Type Department Care Team (Late st Contact Info) Description 04/30/2021 Refill [facility] [address] [place] [phone] Alejandro Santana MD [address] [place] [phone] Social History Tobacco Use Types Packs/Day Years [...] on filedocumented in this encounter Care Teams Banker Mason Relationship Specialty Start Date End Date Jade Lewis MD [address] [place] [address] PCP - General Internal Medicine 04/25/22 documented as of this encounter
--- OUTSIDE RECORDS SUMMARY | 2024-06-11 09:09 | XMS_ITS | Encounter Summary ---
Author Organization [facility] [place], Address [address] [place] [address] Phone Care Team Providers Care Eyeglass Lens Cutter Name Role Phone Jade Lewis MD Primary Care Provider + [phone] Reason for Visit * Reason Comments Med Refill Encounter Details Date Type Department Care Team (Late st Contact Info) Description 06/13/2023 Refill [facility] [address] [place] [phone] Malcolm Taylor MD [address] [place] [phone] Social History Tobacco Use Types Packs/Day Years [...] on filedocumented in this encounter Care Teams Eyeglass Lens Cutter Relationship Specialty Start Date End Date Jade Lewis MD [address] [place] [address] PCP - General Internal Medicine 04/25/22 documented as of this encounter
--- OUTSIDE RECORDS SUMMARY | 2024-06-11 09:09 | XMS_ITS | Encounter Summary ---
Author Organization [facility] Address [address] [facility] [address] [place] [address] Phone Care Team Providers Care Clip On Sunglasses Assembler Name Role Phone Jade Lewis MD Primary Care Provider + [phone] Reason for Visit * Reason Onset Date Comments Med Refill 04/19/2022 Encounter Details Date Type Department Care Team (Late st Contact Info) Description 04/19/2022 Refill [facility] [address] [place] [phone] Loida Madsen Social History Tobacco Use Types [...] on filedocumented in this encounter Care Teams Clip On Sunglasses Assembler Relationship Specialty Start Date End Date Jade Lewis MD [address] [place] [address] PCP - General Internal Medicine 04/25/22 documented as of this encounter
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
--- OUTSIDE RECORDS SUMMARY | 2024-06-11 09:09 | XMS_ITS | Encounter Summary ---
Author Organization [facility], Address [address] [place] [address] Phone Care Team Providers Care School Bus Attendant Name Role Phone Jade Lewis MD Primary Care Provider [phone] Reason for Visit * Reason Comments Med Refill Encounter Details Date Type Department Care Team (Late st Contact Info) Description 05/22/2023 Refill [facility] [address] [place] [phone] Car Mcdonald MD [facility] [place] [phone] Social History Tobacco Use Types Packs/Day Years [...] on filedocumented in this encounter Care Teams School Bus Attendant Relationship Specialty Start Date End Date Jade Lewis MD [address] [place] [id number] PCP - General Internal Medicine 04/25/22 documented as of this encounter
--- OUTSIDE RECORDS SUMMARY | 2024-06-11 09:09 | XMS_ITS | Encounter Summary ---
Author Organization [facility] Address [address] [place] [address] Care Team Providers Care Fine Wire Drawer Name Role Phone Cass Turcios MD Primary Care Provider [phone] Encounter Details Date Type Department Care Team (Late st Contact Info) Description 05/31/2024 Lab Requisition [facility] - Main Lab [address] [facility] [place] [address] Laurence Florence MD [address] [place] [id number] End stage renal disease (CMS/HCC); Anemia, unspecified [...] your loved ones. For example, early childhood worker or elderly care for an older [...] K/mcL LAB HEMETOLOGY METHOD 05/31/2024 10:13 AM [facility] RBC 3.20(L) 4.50 - 5.50 M/mcL LAB HEMETOLOGY METHOD 05/31/2024 10:13 AM [facility] Hemoglobin 7.7(L) 13.5 - 17.5 g/dL LAB HEMETOLOGY METHOD 05/31/2024 10:13 AM [facility] Hematocrit 26.1(L) 42.0 - 54.0 % LAB HEMETOLOGY METHOD 05/31/2024 10:13 AM [facility] MCV 81.8 79.0 - 98.0 FL LAB HEMETOLOGY METHOD 05/31/2024 10:13 AM [facility] MCH 24.1(L) 27.0 - 32.0 pcg LAB HEMETOLOGY METHOD 05/31/2024 10:13 AM [facility] MCHC 29.5(L) 32.0 - 37.0 g/dL LAB HEMETOLOGY METHOD 05/31/2024 10:13 AM [facility] RDW 17.8(H) 11.0 - 15.0 % LAB HEMETOLOGY METHOD 05/31/2024 10:13 AM [facility] Platelets 227 130 - 400 K/mcL LAB HEMETOLOGY METHOD 05/31/2024 10:13 AM [facility] MPV 10.6 7.0 - 11.0 FL LAB HEMETOLOGY METHOD 05/31/2024 10:13 AM [facility] NRBC 0.0 <1.0 % LAB HEMETOLOGY METHOD 05/31/2024 10:13 AM [facility] NRBC Absolute 0.00 <0.10 K/mcL LAB HEMETOLOGY METHOD 05/31/2024 10:13 AM [facility] Neutrophils Relative 69.5 % LAB HEMETOLOGY METHOD 05/31/2024 10:13 AM [facility] Lymphocytes Relative 19.2 % LAB HEMETOLOGY METHOD 05/31/2024 10:13 AM [facility] Monocytes Relative 8.4 % LAB HEMETOLOGY METHOD 05/31/2024 10:13 AM [facility] Eosinophils Relative 1.8 % LAB HEMETOLOGY METHOD 05/31/2024 10:13 AM [facility] Basophils Relative 0.5 % LAB HEMETOLOGY METHOD 05/31/2024 10:13 AM [facility] Immature Granulocytes Relative 0.6 % LAB HEMETOLOGY METHOD 05/31/2024 10:13 AM [facility] Neutrophils Absolute 7.60(H) 1.50 - 7.00 K/mcL LAB HEMETOLOGY METHOD 05/31/2024 10:13 AM [facility] Lymphocytes Absolute 2.10 1.00 - 5.00 K/mcL LAB HEMETOLOGY METHOD 05/31/2024 10:13 AM [facility] Monocytes Absolute 0.92 0.20 - 1.00 K/mcL LAB HEMETOLOGY METHOD 05/31/2024 10:13 AM [facility] Eosinophils Absolute 0.20 0.00 - 0.50 K/mcL LAB HEMETOLOGY METHOD 05/31/2024 10:13 AM [facility] Basophils Absolute 0.05 0.00 - 0.20 K/mcL LAB HEMETOLOGY METHOD 05/31/2024 10:13 AM [facility] Immature Granulocytes Absolute 0.07(H) 0.00 - 0.03 K/mcL LAB HEMETOLOGY METHOD 05/31/2024 10:13 AM [facility] Blood Venous blood specimen / Unknown Venipuncture / Unknown 05/31/2024 6:09 AM EDT 05/31/2024 9:24 AM EDT us Laurence Florence MD LAB BLOOD ORDERABLES Final Resu lt [facility] [address] [place] [address], [place] [phone] * (ABNORMAL) Basic metabolic panel (05/31/2024 6:09 AM EDT) Sodium 139 133 - 145 mmol/L LAB CHEMISTRY METHOD 05/31/2024 11:03 AM [facility] Potassium 4.6 3.5 - 5.5 mmol/L LAB CHEMISTRY METHOD 05/31/2024 11:03 AM [facility] Chloride 106 96 - 110 mmol/L LAB CHEMISTRY METHOD 05/31/2024 11:03 AM [facility] CO2 27 21 - 32 mmol/L LAB CHEMISTRY METHOD 05/31/2024 11:03 AM [facility] Anion Gap 6 3 - 11 LAB CHEMISTRY METHOD 05/31/2024 11:03 AM [facility] Glucose 24(LL) 70 - 100 mg/dL LAB CHEMISTRY METHOD 05/31/2024 11:03 AM [facility] BUN 52(H) 5 - 25 mg/dL LAB CHEMISTRY METHOD 05/31/2024 11:03 AM [facility] Creatinine 7.22(H) 0.70 - 1.30 mg/dL LAB CHEMISTRY METHOD 05/31/2024 11:03 AM EDT [facility] eGFR 8(L) >=60 mL/min/1. 73m2 LAB CHEMISTRY METHOD 05/31/2024 11:03 AM EDT [facility] Comment:Calculation based on the??Chronic Kidney Disease Epidemiology Collaboration (CKD-EPI) equation refit??without adjustment for race. BUN/Creatinine Ratio 7.2 LAB CHEMISTRY METHOD 05/31/2024 11:03 AM EDT [facility] Calcium 8.2(L) 8.5 - 10.5 mg/dL LAB CHEMISTRY METHOD 05/31/2024 11:03 AM EDT [facility] Blood Venous blood specimen / Unknown Venipuncture / Unknown 05/31/2024 6:09 AM EDT 05/31/2024 9:24 AM EDT us Laurence Florence MD LAB BLOOD ORDERABLES Final Resu lt [facility] [address] [place] [address], documented in this encounter Visit Diagnoses Diagnosis End stage renal disease (CMS/LTAC, [facility]) End stage renal disease Anemia, unspecified documented in this encounter Care Teams Fine Wire Drawer Relationship Specialty Start Date End Date Cass Turcios MD [address] [place] [address] [address] [place] [address] PCP - General Geriatric Medicine 04/02/24 documented as of this encounter
--- OUTSIDE RECORDS SUMMARY | 2024-06-11 09:09 | XMS_ITS | Encounter Summary ---
Author Organization [facility] Address [address] [place] [address] Care Team Providers Care Information Services Assistant Name Role Phone Cass Turcios MD Primary Care Provider [phone] Encounter Details Date Type Department Care Team (Late st Contact Info) Description 04/02/2024 Lab Requisition [facility] - Main Lab [address] [facility] [place] [address] Cass Turcios MD [address] [place] [address] End stage renal disease (CMS/HCC) Social History [...] for your loved ones. For example, childcare teacher or elderly care for an [...] MD LAB BLOOD ORDERABLES Final Resul t [facility] [address] [place] [address], * (ABNORMAL) Complete blood count (04/02/2024 5:24 [...] LAB HEMETOLOGY METHOD 04/02/2024 9:47 AM EST [facility] NRBC 0.0 <1.0 % LAB HEMETOLOGY METHOD 04/02/2024 9:47 AM EST [facility] NRBC Absolute 0.00 <0.10 K/mcL LAB HEMETOLOGY METHOD 04/02/2024 9:47 AM EST [facility] Blood Venous blood specimen / Unknown Venipuncture / Unknown 04/02/2024 5:24 AM EST 04/02/2024 8:48 AM EST us Cass Turcios MD LAB BLOOD ORDERABLES Final Resul t [facility] [address] [place] [address], documented in this encounter Visit Diagnoses Diagnosis End stage renal disease (CMS/LTAC, [facility]) End stage renal disease documented in this encounter Care Teams Information Services Assistant Relationship Specialty Start Date End Date Cass Turcios MD [address] [place] [address] [address] [place] [address] PCP - General Geriatric Medicine 04/02/24 documented as of this encounter
--- OUTSIDE RECORDS SUMMARY | 2024-06-11 09:09 | XMS_ITS | Encounter Summary ---
Author Organization [facility] Address [address] [place] [address] Care Team Providers Care Office Machines Teacher Name Role Phone Cass Turcios MD Primary Care Provider Encounter Details Date Type Department Care Team (Late st Contact Info) Description 06/06/2024 Lab Requisition [facility] - Main Lab [address] [facility] [place] [address] Laurence Florence MD [address] [place] [phone] Cellulitis of right lower limb; End stage [...] your loved ones. For example, early childhood education instructor or elderly care for an older [...] mmol/L LAB CHEMISTRY METHOD 06/06/2024 8:59 AM [facility] Potassium 4.3 3.5 - 5.5 mmol/L LAB CHEMISTRY METHOD 06/06/2024 8:59 AM [facility] Chloride 106 96 - 110 mmol/L LAB CHEMISTRY METHOD 06/06/2024 8:59 AM [facility] CO2 27 21 - 32 mmol/L LAB CHEMISTRY METHOD 06/06/2024 8:59 AM [facility] Anion Gap 6 3 - 11 LAB CHEMISTRY METHOD 06/06/2024 8:59 AM [facility] Glucose 162(H) 70 - 100 mg/dL LAB CHEMISTRY METHOD 06/06/2024 8:59 AM [facility] BUN 28(H) 5 - 25 mg/dL LAB CHEMISTRY METHOD 06/06/2024 8:59 AM [facility] Creatinine 3.78(H) 0.70 - 1.30 mg/dL LAB CHEMISTRY METHOD 06/06/2024 8:59 AM [facility] eGFR 17(L) >=60 mL/min/1. 73m2 LAB CHEMISTRY METHOD 06/06/2024 8:59 AM [facility] Comment:Calculation based on the??Chronic Kidney Disease Epidemiology Collaboration (CKD-EPI) equation refit??without adjustment for race. BUN/Creatinine Ratio 7.4 LAB CHEMISTRY METHOD 06/06/2024 8:59 AM [facility] Calcium 9.1 8.5 - 10.5 mg/dL LAB CHEMISTRY METHOD 06/06/2024 8:59 AM [facility] Blood Venous blood specimen / Unknown Venipuncture / Unknown 06/06/2024 5:35 AM EDT 06/06/2024 8:10 AM EDT us Laurence Florence MD LAB BLOOD ORDERABLES Final Resu lt [facility] [address] [place] [address], [place] [phone] * (ABNORMAL) Complete blood count (06/06/2024 5:35 AM EDT) [facility] Signature WBC 9.3 4.8 - 10.8 K/mcL LAB HEMETOLOGY METHOD 06/06/2024 8:35 AM EDT [facility] RBC 3.20(L) 4.50 - 5.50 M/mcL LAB HEMETOLOGY METHOD 06/06/2024 8:35 AM EDT [facility] Hemoglobin 7.6(L) 13.5 - 17.5 g/dL LAB HEMETOLOGY METHOD 06/06/2024 8:35 AM EDT [facility] Hematocrit 26.2(L) 42.0 - 54.0 % LAB HEMETOLOGY METHOD 06/06/2024 8:35 AM EDT [facility] MCV 80.9 79.0 - 98.0 FL LAB HEMETOLOGY METHOD 06/06/2024 8:35 AM T [facility] MCH 23.5(L) 27.0 - 32.0 pcg LAB HEMETOLOGY METHOD 06/06/2024 8:35 AM EDT [facility] MCHC 29.0(L) 32.0 - 37.0 g/dL LAB HEMETOLOGY METHOD 06/06/2024 8:35 AM EDT [facility] RDW 16.8(H) 11.0 - 15.0 % LAB HEMETOLOGY METHOD 06/06/2024 8:35 AM EDT [facility] Platelets 264 130 - 400 K/mcL LAB HEMETOLOGY METHOD 06/06/2024 8:35 AM EDT [facility] MPV 12.3(H) 7.0 - 11.0 FL LAB HEMETOLOGY METHOD 06/06/2024 8:35 AM EDT [facility] NRBC 0.0 <1.0 % [facility] 06/06/2024 8:35 AM EDT [facility] NRBC Absolute 0.00 <0.10 K/mcL LAB HEMETOLOGY METHOD 06/06/2024 8:35 AM EDT [facility] Blood Venous blood specimen / Unknown Venipuncture / Unknown 06/06/2024 5:35 AM EDT 06/06/2024 8:10 AM EDT us Laurence Florence MD LAB BLOOD ORDERABLES Final Resu lt [facility] [address] [place] [address], documented in this encounter Visit Diagnoses Diagnosis Cellulitis of right lower limb End stage renal disease (CMS/HCC) End stage renal disease documented in this encounter Care Teams Office Machines Teacher Relationship Specialty Start Date End Date Cass Turcios MD [address] [place] [address] [address] [place] [address] PCP - General Geriatric Medicine 04/02/24 documented as of this encounter
--- OUTSIDE RECORDS SUMMARY | 2024-06-11 09:09 | XMS_ITS | Clinical Summary ---
Author Organization [facility] Address [address] [place] [address] [address] [place] [address] Care Team Providers Care Director Of Estate Name Role Phone Unavailable Primary Care Provider [...]
--- OUTSIDE RECORDS SUMMARY | 2024-06-11 09:09 | XMS_ITS | Encounter Summary ---
Author Organization [facility], Address [address] [place] [address] Phone Care Team Providers Care Environmental Health Safety Engineer Name Role Phone Jade Lewis MD Primary Care Provider [phone] Reason for Visit * Reason Comments Med Refill Encounter Details Date Type Department Care Team ([facility] st Contact Info) Description 06/25/2019 Refill [facility] [address] [place] [address] Mercedes Law MD Social History [...] on filedocumented in this encounter Care Teams Environmental Health Safety Engineer Relationship Specialty Start Date End Date Jade Lewis MD [address] [place], [place] [id number] PCP - General Internal Medicine 04/25/22 documented as of this encounter
--- OUTSIDE RECORDS SUMMARY | 2024-06-11 09:09 | XMS_ITS | Clinical Summary ---
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 Name Role Phone Cass Turcios MD Primary Care Provider [phone] Allergies No known active allergies Medications Ventolin [...] Care Team Description 06/06/2024 Lab Requisition [facility] [address] [place] [address] Laurence Florence MD Cellulitis of right lower limb; End stage renal disease ([facility]/HCC) 05/31/2024 Lab Requisition [facility] [address] [place] [address] Laurence Florence MD End stage renal disease ([facility]); Anemia, unspecified 05/30/2024 Lab Requisition [facility] [address] [place] [address] Laurence Florence MD Chronic respiratory failure with hypoxia ([facility]); Encounter for orthopedic aftercare following surgical amputation; Encounter for surgical aftercare following surgery on the circulatory system; Peripheral vascular disease, unspecified ([facility]) 05/30/2024 Lab Requisition [facility] [address] [place] [phone] Laurence Florence MD Chronic respiratory failure with hypoxia ([facility]/HCC); Encounter for orthopedic aftercare following surgical amputation; Encounter for surgical aftercare following surgery on the circulatory system; Peripheral vascular disease, unspecified ([facility]/HCC) 05/28/2024 Lab Requisition [facility] [address] [place] [phone] Laurence Florence MD Anemia, unspecified; End stage renal disease ([facility]); Unspecified asthma, uncomplicated 05/24/2024 Lab Requisition [facility] [address] [place] [phone] Laurence Florence MD Chronic combined systolic (congestive) and diastolic (congestive) heart failure ([facility]/HCC); Type 2 diabetes mellitus without complications ([facility]); End stage renal disease ([facility]/HCC) 05/21/2024 Lab Requisition [facility] [address] [place] [phone] Laurence Florence MD Chronic combined systolic (congestive) and diastolic (congestive) heart failure ([facility]/HCC); End stage renal disease ([facility]/HCC) 05/20/2024 Lab Requisition [facility] [address] [place] [phone] Laurence Florence MD Elevated white blood cell count, unspecified 05/18/2024 Lab Requisition [facility] [address] [place] [address] Elsy Christina PA Unspecified systolic (congestive) heart failure ([facility]/HCC); Type 2 diabetes mellitus without complications ([facility]/HCC); End stage renal disease ([facility]/HCC) 05/17/2024 Lab Requisition [facility] [address] [place] [phone] Laurence Florence MD Type 2 diabetes mellitus without complications ([facility]/HCC); End stage renal disease ([facility]) 04/02/2024 Lab Requisition [facility] [address] [place] [address] Cass Turcios MD End stage renal disease ([facility]) 03/25/2024 7:29 AM EST - 03/27/2024 6:55 PM EST Hospital Encounter [facility] [address] [place] [phone] Noman Conteh MD Bukalo, Nermina, MD Japaridze, Anna, MD Acute kidney injury superimposed on chronic kidney disease ([facility]) (Primary Dx); Hyperkalemia; Urinary tract infection without hematuria, site unspecified Discharge Disposition: [facility] Facility 03/25/2024 Lab Requisition [facility] [address] [place] [phone] Cass Turcios MD Anemia, unspecified; Chronic diastolic (congestive) heart failure ([facility]); Other pericardial effusion (noninflammatory); End stage renal disease ([facility]) from Last 3 Months Surgical History Surgery Date Site/Laterality Comments TOE AMPUTATION IR DIALYSIS CATH INSERT VASCULAR ACCESS Medical History Medical History Date Comments ESRD (end stage renal disease) on dialysis ([facility]/ [facility]) MWF Hypertension Hyperlipidemia Gouty arthritis Diabetes mellitus ([facility]) GERD (gastroesophageal reflux disease) COPD (chronic obstructive pulmonary disease) ([facility]) Social History Tobacco Use Types [...] care for your loved ones. For example, childbirth and infant care teacher or elderly care for an older [...] age to complete this topic Meningococcal B Vaccine Aged Out No l onger eligible based on patient's age to complete [...] right lower limb End stage renal disease ([facility]/HCC) COMPLETE BLOOD COUNT Routine 06/06/2024 5:35 AM EDT Cellulitis of right lower limb End stage renal disease ([facility]/HCC) CBC WITH AUTO DIFFERENTIAL Routine 05/31/2024 6:09 AM EDT End stage renal disease ([facility]) Anemia, unspecified BASIC METABOLIC PANEL Routine 05/31/2024 6:09 AM EDT End stage renal disease ([facility]) Anemia, unspecified CBC AND DIFFERENTIAL Routine 05/31/2024 6:09 AM EDT End stage renal disease ([facility]) Anemia, unspecified CULTURE BLOOD Routine 05/30/2024 7:41 AM EDT Chronic respiratory failure with hypoxia Encounter for orthopedic aftercare following surgical amputation Encounter for surgical aftercare following surgery on the circulatory system Peripheral vascular disease, unspecified ([facility]) LACTATE Routine 05/30/2024 7:36 AM EDT Chronic [...] K/mcL LAB HEMETOLOGY METHOD 06/06/2024 8:35 AM [facility] RBC 3.20(L) 4.50 - 5.50 M/mcL LAB HEMETOLOGY METHOD 06/06/2024 8:35 AM [facility] Hemoglobin 7.6(L) 13.5 - 17.5 g/dL LAB HEMETOLOGY METHOD 06/06/2024 8:35 AM [facility] Hematocrit 26.2(L) 42.0 - 54.0 % LAB HEMETOLOGY METHOD 06/06/2024 8:35 AM [facility] MCV 80.9 79.0 - 98.0 FL LAB HEMETOLOGY METHOD 06/06/2024 8:35 AM [facility] MCH 23.5(L) 27.0 - 32.0 pcg LAB HEMETOLOGY METHOD 06/06/2024 8:35 AM [facility] MCHC 29.0(L) 32.0 - 37.0 g/dL LAB HEMETOLOGY METHOD 06/06/2024 8:35 AM [facility] RDW 16.8(H) 11.0 - 15.0 % LAB HEMETOLOGY METHOD 06/06/2024 8:35 AM [facility] Platelets 264 130 - 400 K/mcL LAB HEMETOLOGY METHOD 06/06/2024 8:35 AM [facility] MPV 12.3(H) 7.0 - 11.0 FL LAB HEMETOLOGY METHOD 06/06/2024 8:35 AM EDT [facility] NRBC 0.0 <1.0 % [facility] 06/06/2024 8:35 AM EDT [facility] NRBC Absolute 0.00 <0.10 K/mcL [facility] 06/06/2024 8:35 AM EDT [facility] Blood Venous blood specimen / Unknown Venipuncture / Unknown 06/06/2024 5:35 AM EDT 06/06/2024 8:10 AM EDT us Laurence Florence MD LAB BLOOD ORDERABLES Final Resu lt [facility] [address] [place] [address], [place] [phone] * (ABNORMAL) Basic metabolic panel (06/06/2024 5:35 AM EDT) Only the most recent of11 resultswithin the time period is included. Sodium 139 133 - 145 mmol/L LAB CHEMISTRY METHOD 06/06/2024 8:59 AM [facility] Potassium 4.3 3.5 - 5.5 mmol/L LAB CHEMISTRY METHOD 06/06/2024 8:59 AM [facility] Chloride 106 96 - 110 mmol/L LAB CHEMISTRY METHOD 06/06/2024 8:59 AM [facility] CO2 27 21 - 32 mmol/L LAB CHEMISTRY METHOD 06/06/2024 8:59 AM [facility] Anion Gap 6 3 - 11 LAB CHEMISTRY METHOD 06/06/2024 8:59 AM [facility] Glucose 162(H) 70 - 100 mg/dL LAB CHEMISTRY METHOD 06/06/2024 8:59 AM T [facility] BUN 28(H) 5 - 25 mg/dL LAB CHEMISTRY METHOD 06/06/2024 8:59 AM EDT [facility] Creatinine 3.78(H) 0.70 - 1.30 mg/dL LAB CHEMISTRY METHOD 06/06/2024 8:59 AM EDT [facility] eGFR 17(L) >=60 mL/min/1. 73m2 LAB CHEMISTRY METHOD 06/06/2024 8:59 AM EDT [facility] Comment:Calculation based on the??Chronic Kidney Disease Epidemiology Collaboration (CKD-EPI) equation refit??without adjustment for race. BUN/Creatinine Ratio 7.4 LAB CHEMISTRY METHOD 06/06/2024 8:59 AM EDT [facility] Calcium 9.1 8.5 - 10.5 mg/dL LAB CHEMISTRY METHOD 06/06/2024 8:59 AM EDT [facility] Blood Venous blood specimen / Unknown Venipuncture / Unknown 06/06/2024 5:35 AM EDT 06/06/2024 8:10 AM EDT us Laurence Florence MD LAB BLOOD ORDERABLES Final Resu lt [facility] [address] [place] [address], * (ABNORMAL) CBC auto differential (05/31/2024 6:09 AM EDT) Only the most recent of6 resultswithin the time period is included. WBC 10.9(H) 4.8 - 10.8 K/mcL LAB HEMETOLOGY METHOD 05/31/2024 10:13 AM EDT [facility] RBC 3.20(L) 4.50 - 5.50 M/mcL LAB HEMETOLOGY METHOD 05/31/2024 10:13 AM EDT [facility] Hemoglobin 7.7(L) 13.5 - 17.5 g/dL LAB HEMETOLOGY METHOD 05/31/2024 10:13 AM [facility] Hematocrit 26.1(L) 42.0 - 54.0 % LAB HEMETOLOGY METHOD 05/31/2024 10:13 AM [facility] MCV 81.8 79.0 - 98.0 FL LAB HEMETOLOGY METHOD 05/31/2024 10:13 AM [facility] MCH 24.1(L) 27.0 - 32.0 pcg LAB HEMETOLOGY METHOD 05/31/2024 10:13 AM [facility] MCHC 29.5(L) 32.0 - 37.0 g/dL LAB HEMETOLOGY METHOD 05/31/2024 10:13 AM [facility] RDW 17.8(H) 11.0 - 15.0 % LAB HEMETOLOGY METHOD 05/31/2024 10:13 AM [facility] Platelets 227 130 - 400 K/mcL LAB HEMETOLOGY METHOD 05/31/2024 10:13 AM [facility] MPV 10.6 7.0 - 11.0 FL LAB HEMETOLOGY METHOD 05/31/2024 10:13 AM [facility] NRBC 0.0 <1.0 % LAB HEMETOLOGY METHOD 05/31/2024 10:13 AM [facility] NRBC Absolute 0.00 <0.10 K/mcL LAB HEMETOLOGY METHOD 05/31/2024 10:13 AM [facility] Neutrophils Relative 69.5 % LAB HEMETOLOGY METHOD 05/31/2024 10:13 AM [facility] Lymphocytes Relative 19.2 % LAB HEMETOLOGY METHOD 05/31/2024 10:13 AM [facility] Monocytes Relative 8.4 % LAB HEMETOLOGY METHOD 05/31/2024 10:13 AM EDT [facility] Eosinophils Relative 1.8 % LAB HEMETOLOGY METHOD 05/31/2024 10:13 AM EDT [facility] Basophils Relative 0.5 % LAB HEMETOLOGY METHOD 05/31/2024 10:13 AM [facility] Immature Granulocytes Relative 0.6 % LAB HEMETOLOGY METHOD 05/31/2024 10:13 AM EDT [facility] Neutrophils Absolute 7.60(H) 1.50 - 7.00 K/mcL LAB HEMETOLOGY METHOD 05/31/2024 10:13 AM EDT [facility] Lymphocytes Absolute 2.10 1.00 - 5.00 K/mcL LAB HEMETOLOGY METHOD 05/31/2024 10:13 AM [facility] Monocytes Absolute 0.92 0.20 - 1.00 K/mcL LAB HEMETOLOGY METHOD 05/31/2024 10:13 AM T [facility] Eosinophils Absolute 0.20 0.00 - 0.50 K/mcL LAB HEMETOLOGY METHOD 05/31/2024 10:13 AM T [facility] Basophils Absolute 0.05 0.00 - 0.20 K/mcL LAB HEMETOLOGY METHOD 05/31/2024 10:13 AM T [facility] Immature Granulocytes Absolute 0.07(H) 0.00 - 0.03 K/mcL LAB HEMETOLOGY METHOD 05/31/2024 10:13 AM T [facility] Blood Venous blood specimen / Unknown Venipuncture / Unknown 05/31/2024 6:09 AM EDT 05/31/2024 9:24 AM EDT us Laurence Florence MD LAB BLOOD ORDERABLES Final Resu lt [facility] [address] [place] [address], [place] [phone] * Culture blood (05/30/2024 7:41 AM EDT) Only the most recent of3 resultswithin the time period is included. Culture, Blood No growth at 5 days LAB MICROBIOLOGY METHOD 06/04/2024 9:01 AM EDT [facility] Blood Venipuncture / Unknown 05/30/2024 7:41 AM EDT 05/30/2024 8:14 AM EDT us Laurence Florence MD LAB MICROBIOLOGY - GENERAL ORDE RABLES Final Result Performing Organization Address [facility]/ZIP Co de Phone Number [facility] [address] [place] [address], [place] [phone] * (ABNORMAL) Sedimentation rate (05/30/2024 7:36 AM EDT) [facility] Sed Rate >130(H) 0 - 20 mm/hr LAB HEMETOLOGY METHOD 05/30/2024 8:57 AM EDT [facility] Blood Venous blood specimen / Unknown Venipuncture / Unknown 05/30/2024 7:36 AM EDT 05/30/2024 8:11 AM EDT Narrative [facility] - 05/30/2024 8:57 AM EDT Rechecked. us Laurence Florence MD LAB BLOOD ORDERABLES Final Resu lt [facility] [address] [place] [address], [place] [phone] * (ABNORMAL) C-reactive protein (05/30/2024 7:36 AM EDT) [facility] C-Reactive Protein 11.60(H) <=0.50 mg/dL LAB CHEMISTRY METHOD 05/30/2024 8:51 AM EDT [facility] Blood Venous blood specimen / Unknown Venipuncture / Unknown 05/30/2024 7:36 AM EDT 05/30/2024 8:11 AM EDT us Laurence Florence MD LAB BLOOD ORDERABLES Final Resu lt Performing Organization Address [facility]/ZIP Co de Phone Number [facility] [address] [place] [address], [place] [phone] * Lactate (05/30/2024 7:36 AM EDT) Lactate 0.6 0.4 - 2.0 mmol/L LAB CHEMISTRY METHOD 05/30/2024 8:47 AM EDT [facility] Blood Venous blood specimen / Unknown Venipuncture / Unknown 05/30/2024 7:36 AM EDT 05/30/2024 8:11 AM EDT us Laurence Florence MD LAB BLOOD ORDERABLES Final Resu lt Performing Organization Address [facility] Co de Phone Number [facility] [address] [place] [address], [place] [phone] * (ABNORMAL) Comprehensive metabolic panel (05/30/2024 7:36 AM EDT) Only the most recent of4 resultswithin the time period is included. Sodium 140 133 - 145 mmol/L LAB CHEMISTRY METHOD 05/30/2024 9:08 AM EDT [facility] Potassium 4.2 3.5 - 5.5 mmol/L LAB CHEMISTRY METHOD 05/30/2024 9:08 AM EDT [facility] Chloride 104 96 - 110 mmol/L LAB CHEMISTRY METHOD 05/30/2024 9:08 AM EDT [facility] CO2 28 21 - 32 mmol/L LAB CHEMISTRY METHOD 05/30/2024 9:08 AM EDT [facility] Anion Gap 8 3 - 11 LAB CHEMISTRY METHOD 05/30/2024 9:08 AM [facility] Glucose 77 70 - 100 mg/dL LAB CHEMISTRY METHOD 05/30/2024 9:08 AM [facility] BUN 35(H) 5 - 25 mg/dL LAB CHEMISTRY METHOD 05/30/2024 9:08 AM [facility] Creatinine 5.30(H) 0.70 - 1.30 mg/dL LAB CHEMISTRY METHOD 05/30/2024 9:08 AM [facility] eGFR 11(L) >=60 mL/min/1. 73m2 LAB CHEMISTRY METHOD 05/30/2024 9:08 AM [facility] Comment:Calculation based on the??Chronic Kidney Disease Epidemiology Collaboration (CKD-EPI) equation refit??without adjustment for race. BUN/Creatinine Ratio 6.6 LAB CHEMISTRY METHOD 05/30/2024 9:08 AM [facility] Calcium 9.0 8.5 - 10.5 mg/dL LAB CHEMISTRY METHOD 05/30/2024 9:08 AM [facility] AST (SGOT) 10 10 - 42 unit/L LAB CHEMISTRY METHOD 05/30/2024 9:08 AM [facility] ALT (SGPT) 13 10 - 60 unit/L LAB CHEMISTRY METHOD 05/30/2024 9:08 AM [facility] Alkaline Phosphatase 141(H) 42 - 121 unit/L LAB CHEMISTRY METHOD 05/30/2024 9:08 AM [facility] Total Protein 6.3 6.0 - 8.0 g/dL LAB CHEMISTRY METHOD 05/30/2024 9:08 AM [facility] Albumin 2.5(L) 3.2 - 5.0 g/dL LAB CHEMISTRY METHOD 05/30/2024 9:08 AM [facility] Total Bilirubin 0.5 0.0 - 1.4 mg/dL LAB CHEMISTRY METHOD 05/30/2024 9:08 AM EDT [facility] Blood Venous blood specimen / Unknown Venipuncture / Unknown 05/30/2024 7:36 AM EDT 05/30/2024 8:11 AM EDT us Laurence Florence MD LAB BLOOD ORDERABLES Final Resu lt Performing Organization Address [facility]/ZIP Co de Phone Number [facility] [address] [place] [address], [place] [phone] * (ABNORMAL) Magnesium (05/29/2024 5:09 AM EDT) Only the most recent of3 resultswithin the time period is included. Pathologist [facility] Magnesium 1.8(L) 1.9 - 2.6 mg/dL LAB CHEMISTRY METHOD 05/29/2024 9:20 AM EDT [facility] Blood Venous blood specimen / Unknown Venipuncture / Unknown 05/29/2024 5:09 AM EDT 05/29/2024 8:42 AM EDT us Laurence Florence MD LAB BLOOD ORDERABLES Final Resu lt Performing Organization Address [facility] de Phone Number [facility] [address] [place] [address], [place] [phone] * (ABNORMAL) Renal function panel (05/29/2024 5:09 AM EDT) Pathologist [facility] Sodium 135 133 - 145 mmol/L LAB CHEMISTRY METHOD 05/29/2024 10:03 AM EDT [facility] Potassium 4.7 3.5 - 5.5 mmol/L LAB CHEMISTRY METHOD 05/29/2024 10:03 AM EDT [facility] Chloride 99 96 - 110 mmol/L LAB CHEMISTRY METHOD 05/29/2024 10:03 AM EDT [facility] CO2 27 21 - 32 mmol/L LAB CHEMISTRY METHOD 05/29/2024 10:03 AM [facility] Anion Gap 9 3 - 11 LAB CHEMISTRY METHOD 05/29/2024 10:03 AM [facility] Glucose 22(LL) 70 - 100 mg/dL LAB CHEMISTRY METHOD 05/29/2024 10:03 AM [facility] BUN 60(H) 5 - 25 mg/dL LAB CHEMISTRY METHOD 05/29/2024 10:03 AM [facility] Creatinine 7.71(H) 0.70 - 1.30 mg/dL LAB CHEMISTRY METHOD 05/29/2024 10:03 AM [facility] eGFR 7(L) >=60 mL/min/1. 73m2 LAB CHEMISTRY METHOD 05/29/2024 10:03 AM [facility] Comment:Calculation based on the??Chronic Kidney Disease Epidemiology Collaboration (CKD-EPI) equation refit??without adjustment for race. BUN/Creatinine Ratio 7.8 LAB CHEMISTRY METHOD 05/29/2024 10:03 AM [facility] Albumin 2.4(L) 3.2 - 5.0 g/dL LAB CHEMISTRY METHOD 05/29/2024 10:03 AM [facility] Calcium 8.7 8.5 - 10.5 mg/dL LAB CHEMISTRY METHOD 05/29/2024 10:03 AM [facility] Phosphorus 4.7(H) 2.5 - 4.5 mg/dL LAB CHEMISTRY METHOD 05/29/2024 10:03 AM [facility] Blood Venous blood specimen / Unknown Venipuncture / Unknown 05/29/2024 5:09 AM EDT 05/29/2024 8:42 AM EDT us Laurence Florence MD LAB BLOOD ORDERABLES Final Resu lt [facility] [address] [place] [address], [place] [phone] * (ABNORMAL) Hemoglobin A1c (05/18/2024 7:20 AM EDT) Only the most recent of2 resultswithin the time period is included. [facility] Hemoglobin A1C 7.2(H) <6.5 % LAB CHEMISTRY METHOD 05/19/2024 12:06 PM EDT [facility] Mean Bld Glu Estim. 160 mg/dL LAB CHEMISTRY METHOD 05/19/2024 12:06 PM EDT [facility] Blood Venous blood specimen / Unknown Venipuncture / Unknown 05/18/2024 7:20 AM EDT 05/18/2024 9:58 AM EDT us Elsy MONTERO LAB BLOOD ORDERABLES Final Re sult Performing Organization Address City/[facility]/ZIP Co de Phone Number [facility] [address] [place] [address], * (ABNORMAL) POCT Glucose, blood (03/27/2024 4:55 PM EST) Only the most recent of10 resultswithin the time period is included. [facility] Glucose POCT 276(H) 70 - 100 mg/dL 03/27/2024 4:56 PM EST [facility] Blood Capillary blood specimen / Unknown 03/27/2024 4:55 PM EST 03/27/2024 4:57 PM EST us Marion Hernandez MD LAB POINT OF CARE TE ST DOCKED DEVICE UNSOLICITED RESULTS Final Result Performing Organization Address City/[facility]/ZIP Co de Phone Number [facility] [address] [place] [address], * Lavender tube (03/26/2024 6:50 AM EST) [facility] Extra Tube Hold for add-ons. 03/26/2024 9:01 AM EST [facility] Comment:Auto resulted. Blood Venous blood specimen / Unknown 03/26/2024 6:50 AM EST 03/26/2024 7:01 AM EST us Marion Hernandez MD LAB BLOOD ORDERABLES Final Res ult [facility] [address] [place] [address], * Respiratory virus panel molecular study (03/25/2024 6:49 PM EST) Adenovirus Detection by PCR Not Detected Not Detected LAB MICROBIOLOGY METHOD 03/25/2024 8:14 PM [facility] Influenza A PCR Not Detected Not Detected LAB MICROBIOLOGY METHOD 03/25/2024 8:14 PM [facility] Influenza B PCR Not Detected Not Detected LAB MICROBIOLOGY METHOD 03/25/2024 8:14 PM [facility] Coronavirus 229E Not Detected Not Detected LAB MICROBIOLOGY METHOD 03/25/2024 8:14 PM [facility] Coronavirus HKU1 Not Detected Not Detected LAB MICROBIOLOGY METHOD 03/25/2024 8:14 PM [facility] Coronavirus OC43 Not Detected Not Detected LAB MICROBIOLOGY METHOD 03/25/2024 8:14 PM [facility] Coronavirus NL63 Not Detected Not Detected LAB MICROBIOLOGY METHOD 03/25/2024 8:14 PM [facility] Parainfluenza Virus 1 Not Detected Not Detected LAB MICROBIOLOGY METHOD 03/25/2024 8:14 PM [facility] Parainfluenza Virus 2 Not Detected Not Detected LAB MICROBIOLOGY METHOD 03/25/2024 8:14 PM [facility] Parainfluenza Virus 3 Not Detected Not Detected LAB MICROBIOLOGY METHOD 03/25/2024 8:14 PM [facility] Parainfluenza Virus 4 Not Detected Not Detected LAB MICROBIOLOGY METHOD 03/25/2024 8:14 PM EST [facility] RSV PCR Not Detected Not Detected LAB MICROBIOLOGY METHOD 03/25/2024 8:14 PM EST [facility] Human Metapneumovirus A and B Not Detected Not Detected LAB MICROBIOLOGY METHOD 03/25/2024 8:14 PM EST [facility] Rhinovirus/Entero virus Not Detected Not Detected LAB MICROBIOLOGY METHOD 03/25/2024 8:14 PM EST [facility] Bordetella pertussis Not Detected Not Detected LAB MICROBIOLOGY METHOD 03/25/2024 8:14 PM EST [facility] Bordetella parapertussis Not Detected Not Detected LAB MICROBIOLOGY METHOD 03/25/2024 8:14 PM EST [facility] Mycoplasma pneumo by PCR Not Detected Not Detected LAB MICROBIOLOGY METHOD 03/25/2024 8:14 PM EST [facility] Chlamydia pneumoniae Not Detected Not Detected LAB MICROBIOLOGY METHOD 03/25/2024 8:14 PM EST [facility] SARS COV-2 Not Detected Not Detected LAB MICROBIOLOGY METHOD 03/25/2024 8:14 PM [facility] Swab Both anterior nares / Unknown Non-blood Collection / Unknown 03/25/2024 6:49 PM EST 03/25/2024 6:59 PM EST [facility] - 03/25/2024 8:14 PM EST Testing was performed using the [employer] Respiratory Pathogen PCR Assay. All results must [...] MICROBIOLOGY - GENERAL MALAIKA HURD Final Result [facility] [address] [place] [address], [place] [phone] * Ethanol (03/25/2024 12:01 PM EST) [facility] Ethanol Level <3 0 - 10 mg/dL LAB CHEMISTRY METHOD 03/25/2024 1:57 PM [facility] Blood Venous blood specimen / Unknown Venipuncture / Unknown 03/25/2024 12:01 PM EST 03/25/2024 12:20 PM EST Radha MONTERO LAB BLOOD ORDERABLES Final Resu lt [facility] [address] [place] [address], [place] [phone] * (ABNORMAL) Urinalysis with reflex microscopic and culture (03/25/2024 8:26 AM EST) [facility] Specific [place] Urine 1.015 1.003 - 1.030 LAB URINALYSIS - AUTOMATED METHOD 03/25/2024 9:54 AM [facility] pH, Urine 6.5 5.0 - 8.0 pH LAB URINALYSIS - AUTOMATED METHOD 03/25/2024 9:54 AM [facility] Leukocytes, Urine Trace(A) Negative LAB URINALYSIS - AUTOMATED METHOD 03/25/2024 9:54 AM [facility] Nitrite, Urine Positive(A) Negative LAB URINALYSIS - AUTOMATED METHOD 03/25/2024 9:54 AM [facility] Protein, Urine >=300(A) <=Trace mg/dL LAB URINALYSIS - AUTOMATED METHOD 03/25/2024 9:54 AM [facility] Glucose, Urine 250(A) Negative mg/dL LAB URINALYSIS - AUTOMATED METHOD 03/25/2024 9:54 AM [facility] Ketones, Urine Negative Negative mg/dL LAB URINALYSIS - AUTOMATED METHOD 03/25/2024 9:54 AM [facility] Urobilinogen , Urine 0.2 0.2 - 1.0 mg/dL LAB URINALYSIS - AUTOMATED METHOD 03/25/2024 9:54 AM [facility] Bilirubin, Urine Negative Negative LAB URINALYSIS - AUTOMATED METHOD 03/25/2024 9:54 AM [facility] Blood, Urine Moderate(A) Negative LAB URINALYSIS - AUTOMATED METHOD 03/25/2024 9:54 AM [facility] RBC, Urine 10(H) 0 - 4 /HPF 03/25/2024 9:54 AM [facility] WBC, Urine 80(H) 0 - 4 /HPF 03/25/2024 9:54 AM [facility] Squamous Epithelial, Urine 100(H) 0 - 60 /LPF 03/25/2024 9:54 AM [facility] Crystals, Urine Moderate Amorphous Urate crystals. /LPF 03/25/2024 9:54 AM [facility] Bacteria, Urine Moderate(A) Negative /HPF 03/25/2024 9:54 AM [facility] Urine Urine specimen obtained by clean catch procedure / Unknown Non-blood Collection / Unknown 03/25/2024 8:26 AM EST 03/25/2024 8:54 AM EST us Noman Conteh MD LAB URINE ORDERABLES Monse l Result [facility] [address] [place] [address], * Lindsey urine culture tube (03/25/2024 8:26 AM EST) Extra Tube Hold for add-ons. 03/25/2024 10:01 AM [facility] Comment:Auto resulted. Urine Urine specimen obtained by clean catch procedure / Unknown Non-blood Collection / Unknown 03/25/2024 8:26 AM EST 03/25/2024 8:54 AM EST Noman Conteh MD LAB URINE ORDERABLES Monse l Result Performing Organization Address [facility]/ZIP Co de Phone Number [facility] [address] [place] [address], [place] [phone] * Culture urine (03/25/2024 8:26 AM EST) Pathologist [facility] Culture, Urine No growth 03/26/2024 10:25 AM EST [facility] Urine Urine specimen obtained by clean catch procedure / Unknown Non-blood Collection / Unknown 03/25/2024 8:26 AM EST 03/25/2024 9:54 AM EST Noman Conteh MD LAB MICROBIOLOGY - GENERA L ORDERABLES Final Result Performing Organization Address [facility] de Phone Number [facility] [address] [place] [address], [place] [phone] * Hepatitis B surface antigen with reflex to confirmation (03/25/2024 8:17 AM EST) Pathologist [facility] Hepatitis B Surface Ag Negative Negative LAB CHEMISTRY METHOD 03/25/2024 12:29 PM EST [facility] Blood Venous blood specimen / Unknown Venipuncture / Unknown 03/25/2024 8:17 AM EST 03/25/2024 8:57 AM EST Narrative [facility] - 03/25/2024 12:29 PM EST Over the counter supplements containing high doses of biotin may interfere with this assay. ??If interference is suspected, patients shoud be retested after refraining from biotin supplements for 72 hours. us Noman Conteh MD LAB BLOOD ORDERABLES Monse l Result Performing Organization Address City/[facility]/ZIP Co de Phone Number [facility] [address] [place] [address], * Hepatitis B surface antibody quantitative (03/25/2024 8:17 AM EST) Pathologist [facility] Hepatitis B Surface Ab Negative Negative LAB CHEMISTRY METHOD 03/25/2024 12:18 PM EST [facility] Hepatitis B Surface Ab Quantitative 7.1 mIU/mL LAB CHEMISTRY METHOD 03/25/2024 12:18 PM [facility] Blood Venous blood specimen / Unknown Venipuncture / Unknown 03/25/2024 8:17 AM EST 03/25/2024 8:57 AM EST [facility] - 03/25/2024 12:18 PM EST >=10 mIU/mL is considered to be consistent with immunity. Noman Conteh MD LAB BLOOD ORDERABLES Monse l Result Performing Organization Address [facility] Co de Phone Number [facility] [address] [place] [address], * (ABNORMAL) Venous blood gas (03/25/2024 8:17 AM EST) Pathologist [facility] pH, Parish 7.12(LL) 7.32 - 7.42 pH 03/25/2024 9:04 AM [facility] pCO2, Parish 48 41 - 51 mmHg 03/25/2024 9:04 AM [facility] pO2, [place] 54(H) 25 - 40 mmHg 03/25/2024 9:04 AM [facility] HCO3, Venous 14.2(L) 22.0 - 26.0 mmol/L 03/25/2024 9:04 AM [facility] O2 Sat, Parish 82.3 % 03/25/2024 9:04 AM [facility] Base Excess, Parish -13.3(L) -2.0 - 2.0 mmol/L 03/25/2024 9:04 AM EST [facility] Blood Venous blood specimen / Unknown Venipuncture / Unknown 03/25/2024 8:17 AM EST 03/25/2024 8:56 AM EST Noman Conteh MD LAB BLOOD ORDERABLES Monse l Result Performing Organization Address [facility] Co de Phone Number [facility] [address] [place] [address], [place] [phone] * Ammonia (03/25/2024 8:17 AM EST) [facility] Ammonia 20 11 - 35 mcmol/L LAB CHEMISTRY METHOD 03/25/2024 9:17 AM EST [facility] Blood Venous blood specimen / Unknown Venipuncture / Unknown 03/25/2024 8:17 AM EST 03/25/2024 8:57 AM EST Noman Conteh MD LAB BLOOD ORDERABLES Monse l Result Performing Organization Address [facility] de Phone Number [facility] [address] [place] [address], [place] [phone] * ECG 12 lead (03/25/2024 7:58 AM EST) Ventricular Rate ECG 70 BPM GEMUSE Atrial Rate 70 BPM GEMUSE P-R Interval 174 ms GEMUSE QRS Duration 98 ms GEMUSE Q-T Interval 410 ms GEMUSE QTc 442 ms GEMUSE P Wave [place] 3 degrees GEMUSE R [place] 6 degrees GEMUSE T [place] 87 degrees GEMUSE ECG Interpretation Normal sinus [...] remains clear. Cardiomegaly, new since 08/10/2020. Code 18481 -------- FINAL REPORT -------- Dictated By: Daren Sol Dictated Date: 03/25/2024 08:45 ET Assigned Physician: Daren Sol Reviewed and Electronically Signed By: Daren Sol Signed Date: 03/25/2024 08:46 ET Workstation ID: [id number] Transcribed By: Self Edit Transcribed Date: 03/25/2024 [...] lung remains clear. Cardiomegaly, new since08/10/2020. 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 re Agent Care Teams Toy Parts Former Supervisor Relationship Specialty Start Date End Date Cass Turcios MD [address] [place] [address] [address] [place] [address] PCP - General Geriatric Medicine 04/02/24
--- OUTSIDE RECORDS SUMMARY | 2024-06-11 09:09 | XMS_ITS | Encounter Summary ---
Author Organization [facility], Address [address] [place] [address] Phone Care Team Providers Care Insurance Loss Assessor Name Role Phone Jade Lewis MD Primary Care Provider [phone] Reason for Visit * Reason Comments Med Refill Encounter Details Date Type Department Care Team (Late st Contact Info) Description 10/27/2023 Refill [facility] [address] [place] [phone] Malcolm Taylor MD [address] [place] [address] [place] [address] Social History Tobacco Use Types Packs/Day Years [...] on filedocumented in this encounter Care Teams Insurance Loss Assessor Relationship Specialty Start Date End Date Jade Lewis MD [address] [place] [address] PCP - General Internal Medicine 04/25/22 documented as of this encounter
--- OUTSIDE RECORDS SUMMARY | 2024-06-11 09:09 | XMS_ITS | Encounter Summary ---
Author Organization [facility] Address [address] [place] [address] Care Team Providers Care Wreath Maker Name Role Phone Cass Turcios MD Primary Care Provider [phone] Encounter Details Date Type Department Care Team (Late st Contact Info) Description 03/25/2024 Lab Requisition [facility] - Main Lab [address] [facility] [place] [address] Cass Turcios MD [address] [place] [address] Anemia, unspecified; Chronic diastolic (congestive) heart failure [...] your loved ones. For example, child care centre director or elderly care for an older [...] mmol/L LAB CHEMISTRY METHOD 03/25/2024 2:44 PM [facility] Potassium 7.3(HH) 3.5 - 5.5 mmol/L LAB CHEMISTRY METHOD 03/25/2024 2:44 PM [facility] Chloride 101 96 - 110 mmol/L LAB CHEMISTRY METHOD 03/25/2024 2:44 PM [facility] CO2 15(L) 21 - 32 mmol/L LAB CHEMISTRY METHOD 03/25/2024 2:44 PM [facility] Anion Gap 17(H) 3 - 11 LAB CHEMISTRY METHOD 03/25/2024 2:44 PM [facility] Glucose 62(L) 70 - 100 mg/dL LAB CHEMISTRY METHOD 03/25/2024 2:44 PM [facility] BUN 112(H) 5 - 25 mg/dL LAB CHEMISTRY METHOD 03/25/2024 2:44 PM [facility] Creatinine 12.80(HH) 0.70 - 1.30 mg/dL LAB CHEMISTRY METHOD 03/25/2024 2:44 PM [facility] eGFR 4(L) >=60 mL/min/1 .73m2 LAB CHEMISTRY METHOD 03/25/2024 2:44 PM [facility] Comment:Calculation based on the??Chronic Kidney Disease Epidemiology Collaboration (CKD-EPI) equation refit??without adjustment for race. BUN/Creatinine Ratio 8.8 LAB CHEMISTRY METHOD 03/25/2024 2:44 PM [facility] Calcium 8.8 8.5 - 10.5 mg/dL LAB CHEMISTRY METHOD 03/25/2024 2:44 PM [facility] AST (SGOT) 21 10 - 42 unit/L LAB CHEMISTRY METHOD 03/25/2024 2:44 PM [facility] ALT (SGPT) 9(L) 10 - 60 unit/L LAB CHEMISTRY METHOD 03/25/2024 2:44 PM [facility] Alkaline Phosphatase 172(H) 42 - 121 unit/L LAB CHEMISTRY METHOD 03/25/2024 2:44 PM [facility] Total Protein 6.9 6.0 - 8.0 g/dL LAB CHEMISTRY METHOD 03/25/2024 2:44 PM [facility] Albumin 2.7(L) 3.2 - 5.0 g/dL LAB CHEMISTRY METHOD 03/25/2024 2:44 PM [facility] Total Bilirubin 0.4 0.0 - 1.4 mg/dL LAB CHEMISTRY METHOD 03/25/2024 2:44 PM [facility] Blood Venous blood specimen / Unknown Venipuncture / Unknown 03/25/2024 5:09 AM EST 03/25/2024 11:52 AM EST us Cass Turcios MD LAB BLOOD ORDERABLES Final Resul t [facility] [address] [place] [address], * (ABNORMAL) Complete blood count (03/25/2024 5:09 AM EST) WBC 14.1(H) 4.8 - 10.8 K/mcL LAB HEMETOLOGY METHOD 03/25/2024 2:27 PM [facility] RBC 4.60 4.50 - 5.50 M/mcL LAB HEMETOLOGY METHOD 03/25/2024 2:27 PM [facility] Hemoglobin 10.5(L) 13.5 - 17.5 g/dL LAB HEMETOLOGY METHOD 03/25/2024 2:27 PM [facility] Hematocrit 35.9(L) 42.0 - 54.0 % LAB HEMETOLOGY METHOD 03/25/2024 2:27 PM [facility] MCV 77.7(L) 79.0 - 98.0 FL LAB HEMETOLOGY METHOD 03/25/2024 2:27 PM [facility] MCH 22.7(L) 27.0 - 32.0 pcg LAB HEMETOLOGY METHOD 03/25/2024 2:27 PM [facility] MCHC 29.2(L) 32.0 - 37.0 g/dL LAB HEMETOLOGY METHOD 03/25/2024 2:27 PM [facility] RDW 17.5(H) 11.0 - 15.0 % LAB HEMETOLOGY METHOD 03/25/2024 2:27 PM [facility] Platelets 254 130 - 400 K/mcL LAB HEMETOLOGY METHOD 03/25/2024 2:27 PM [facility] MPV LAB HEMETOLOGY METHOD 03/25/2024 2:27 PM [facility] Comment:Not Measured NRBC 0.0 <1.0 % LAB HEMETOLOGY METHOD 03/25/2024 2:27 PM [facility] NRBC Absolute 0.00 <0.10 K/mcL LAB HEMETOLOGY METHOD 03/25/2024 2:27 PM [facility] Blood Venous blood specimen / Unknown Venipuncture / Unknown 03/25/2024 5:09 AM EST 03/25/2024 11:52 AM EST us Cass Turcios MD LAB BLOOD ORDERABLES Final Resul t [facility] [address] [place] [address], documented in this encounter Visit Diagnoses Diagnosis Anemia, unspecified Chronic diastolic (congestive) heart failure Other pericardial effusion (noninflammatory) End stage renal disease (CMS/HCC) End stage renal disease documented in this encounter Additional Health Concerns Infection Onset Date Last Indicated Resolved Time Respiratory Rule-Out 03/25/2024 03/25/2024 025 8:14 PM EST documented as of this encounter Care Teams Wreath Maker Relationship Specialty Start Date End Date Cass Turcios MD [address] [facility] [address] [place] [address] PCP - General Geriatric Medicine 04/02/24 documented as of this encounter
--- OUTSIDE RECORDS SUMMARY | 2024-06-11 09:10 | XMS_ITS | Encounter Summary ---
Author Organization [facility] Address [address] [place] [address] Care Team Providers Care Academic Registrar Name Role Phone Cass Turcios MD Primary Care Provider [phone] Encounter Details Date Type Department Care Team (Late st Contact Info) Description 05/30/[address] [facility] - Main Lab [address] [facility] [place] [address] Laurence Florence MD [address] [place] [id number] Chronic respiratory failure with hypoxia (CMS/HCC); Encounter [...] loved ones. For example, early childhood education worker or elderly care for an older [...] us Laurence Florence MD LAB MICROBIOLOGY - [facility] MALAIKA HURD Final Result [facility] [address] [place] [address], documented in this encounter Visit Diagnoses Diagnosis Chronic respiratory failure with hypoxia Encounter for orthopedic aftercare following surgical amputation Encounter for surgical aftercare following surgery on the circulatory system Peripheral vascular disease, unspecified (CMS/[facility]) Peripheral vascular disease, unspecified documented in this encounter Care Teams Academic Registrar Relationship Specialty Start Date End Date Cass Turcios MD [address] [place] [address] [address] [place] [address] PCP - General Geriatric Medicine 04/02/24 documented as of this encounter
--- OUTSIDE RECORDS SUMMARY | 2024-06-11 09:10 | XMS_ITS | Encounter Summary ---
Author Organization [facility] Address [address] [place] [address] Care Team Providers Care Fisher Sponge Hooking Name Role Phone Cass Turcios MD Primary Care Provider [phone] Encounter Details Date Type Department Care Team (Late st Contact Info) Description 05/18/2024 Lab Requisition [facility] - Main Lab [address] [facility] [place] [address] Elsy Christina PA [address] [address] Unspecified systolic (congestive) heart failure [...] AM EDT Unspecified systolic (congestive) heart failure ([facility]/HCC) Type 2 diabetes mellitus without complications (CMS/HCC) End stage renal disease (CMS/HCC) BASIC METABOLIC PANEL Routine 05/18/2024 7:20 AM EDT Unspecified systolic (congestive) heart failure ([facility]/HCC) Type 2 diabetes mellitus without complications (CMS/HCC) End stage renal disease (CMS/HCC) documented in this encounter Results * (ABNORMAL) CBC auto differential (05/18/2024 7:20 AM EDT) WBC 14.7(H) 4.8 - 10.8 K/mcL LAB HEMETOLOGY METHOD 05/18/2024 10:27 AM [facility] RBC 3.60(L) 4.50 - 5.50 M/mcL LAB HEMETOLOGY METHOD 05/18/2024 10:27 AM [facility] Hemoglobin 8.8(L) 13.5 - 17.5 g/dL LAB HEMETOLOGY METHOD 05/18/2024 10:27 AM [facility] Hematocrit 29.6(L) 42.0 - 54.0 % LAB HEMETOLOGY METHOD 05/18/2024 10:27 AM [facility] MCV 83.1 79.0 - 98.0 FL LAB HEMETOLOGY METHOD 05/18/2024 10:27 AM [facility] MCH 24.7(L) 27.0 - 32.0 pcg LAB HEMETOLOGY METHOD 05/18/2024 10:27 AM [facility] MCHC 29.7(L) 32.0 - 37.0 g/dL LAB HEMETOLOGY METHOD 05/18/2024 10:27 AM [facility] RDW 18.3(H) 11.0 - 15.0 % LAB HEMETOLOGY METHOD 05/18/2024 10:27 AM [facility] Platelets 433(H) 130 - 400 K/mcL LAB HEMETOLOGY METHOD 05/18/2024 10:27 AM [facility] MPV 10.5 7.0 - 11.0 FL LAB HEMETOLOGY METHOD 05/18/2024 10:27 AM [facility] NRBC 0.0 <1.0 % LAB HEMETOLOGY METHOD 05/18/2024 10:27 AM [facility] NRBC Absolute 0.00 <0.10 K/mcL LAB HEMETOLOGY METHOD 05/18/2024 10:27 AM [facility] Neutrophils Relative 75.0 % LAB HEMETOLOGY METHOD 05/18/2024 10:27 AM [facility] Lymphocytes Relative 15.7 % LAB HEMETOLOGY METHOD 05/18/2024 10:27 AM [facility] Monocytes Relative 5.9 % LAB HEMETOLOGY METHOD 05/18/2024 10:27 AM [facility] Eosinophils Relative 2.5 % LAB HEMETOLOGY METHOD 05/18/2024 10:27 AM [facility] Basophils Relative 0.3 % LAB HEMETOLOGY METHOD 05/18/2024 10:27 AM [facility] Immature Granulocytes Relative 0.6 % LAB HEMETOLOGY METHOD 05/18/2024 10:27 AM [facility] Neutrophils Absolute 11.02(H) 1.50 - 7.00 K/mcL LAB HEMETOLOGY METHOD 05/18/2024 10:27 AM [facility] Lymphocytes Absolute 2.30 1.00 - 5.00 K/[facility] LAB HEMETOLOGY METHOD 05/18/2024 10:27 AM EDT [facility] Monocytes Absolute 0.87 0.20 - 1.00 K/[facility] LAB HEMETOLOGY METHOD 05/18/2024 10:27 AM EDT [facility] Eosinophils Absolute 0.37 0.00 - 0.50 K/[facility] LAB HEMETOLOGY METHOD 05/18/2024 10:27 AM EDT [facility] Basophils Absolute 0.04 0.00 - 0.20 K/[facility] LAB HEMETOLOGY METHOD 05/18/2024 10:27 AM EDT [facility] Immature Granulocytes Absolute 0.09(H) 0.00 - 0.03 K/[facility] LAB HEMETOLOGY METHOD 05/18/2024 10:27 AM EDT [facility] Blood Venous blood specimen / Unknown Venipuncture / Unknown 05/18/2024 7:20 AM EDT 05/18/2024 9:58 AM EDT us Elsy MONTERO LAB BLOOD ORDERABLES Final Re sult [facility] [address] [place] [address], * (ABNORMAL) Hemoglobin A1c (05/18/2024 7:20 AM EDT) Hemoglobin A1C 7.2(H) <6.5 % LAB CHEMISTRY METHOD 05/19/2024 12:06 PM EDT [facility] Mean Bld Glu Estim. 160 mg/dL LAB CHEMISTRY METHOD 05/19/2024 12:06 PM EDT [facility] Blood Venous blood specimen / Unknown Venipuncture / Unknown 05/18/2024 7:20 AM EDT 05/18/2024 9:58 AM EDT us Elsy MONTERO LAB BLOOD ORDERABLES Final Re sult [facility] [address] [place] [address], * (ABNORMAL) Basic metabolic panel (05/18/2024 7:20 AM EDT) Sodium 136 133 - 145 mmol/L LAB CHEMISTRY METHOD 05/18/2024 10:41 AM [facility] Potassium 4.8 3.5 - 5.5 mmol/L LAB CHEMISTRY METHOD 05/18/2024 10:41 AM [facility] Chloride 100 96 - 110 mmol/L LAB CHEMISTRY METHOD 05/18/2024 10:41 AM [facility] CO2 28 21 - 32 mmol/L LAB CHEMISTRY METHOD 05/18/2024 10:41 AM [facility] Anion Gap 8 3 - 11 LAB CHEMISTRY METHOD 05/18/2024 10:41 AM [facility] Glucose 77 70 - 100 mg/dL LAB CHEMISTRY METHOD 05/18/2024 10:41 AM [facility] BUN 43(H) 5 - 25 mg/dL LAB CHEMISTRY METHOD 05/18/2024 10:41 AM [facility] Creatinine 6.49(H) 0.70 - 1.30 mg/dL LAB CHEMISTRY METHOD 05/18/2024 10:41 AM [facility] eGFR 9(L) >=60 mL/min/1. 73m2 LAB CHEMISTRY METHOD 05/18/2024 10:41 AM [facility] Comment:Calculation based on the??Chronic Kidney Disease Epidemiology Collaboration (CKD-EPI) equation refit??without adjustment for race. BUN/Creatinine Ratio 6.6 LAB CHEMISTRY METHOD 05/18/2024 10:41 AM [facility] Calcium 9.0 8.5 - 10.5 mg/dL LAB CHEMISTRY METHOD 05/18/2024 10:41 AM EDT [facility] Blood Venous blood specimen / Unknown Venipuncture / Unknown 05/18/2024 7:20 AM EDT 05/18/2024 9:58 AM EDT us Elsy MONTERO LAB BLOOD ORDERABLES Final Re sult [facility] [address] [place] [address], documented in this encounter Visit Diagnoses Diagnosis Unspecified systolic (congestive) heart failure (CMS/HCC) Type 2 diabetes mellitus without complications End stage renal disease (CMS/HCC) End stage renal disease documented in this encounter Care Teams Fisher Sponge Hooking Relationship Specialty Start Date End Date Cass Turcios MD [address] [place] [address] [address] [place] [address] PCP - General Geriatric Medicine 04/02/24 documented as of this encounter
--- OUTSIDE RECORDS SUMMARY | 2024-06-11 09:10 | XMS_ITS | Encounter Summary ---
Author Organization [facility], Address [address] [place] [address] Phone Care Team Providers Care Upholsterer Helper Name Role Phone Jade Lewis MD Primary Care Provider [phone] Reason for Visit * Reason Comments Med Refill Encounter Details Date Type Department Care Team (Late st Contact Info) Description 12/24/2022 Refill [facility] [address] [place] [phone] Car Mcdonald MD [facility] [place] [address] Social History Tobacco Use Types Packs/Day Years [...] on filedocumented in this encounter Care Teams Upholsterer Helper Relationship Specialty Start Date End Date Jade Lewis MD [address] [place] [address] PCP - General Internal Medicine 04/25/22 documented as of this encounter
--- OUTSIDE RECORDS SUMMARY | 2024-06-11 09:10 | XMS_ITS | Clinical Summary ---
Author Organization [facility]. Address [address] [facility] [address] [place] [address] Phone Care Team Providers Care Respiratory Assistant Name Role Phone Jade Lewis MD Primary Care Provider + [phone] Allergies Active Allergy Reactions Criticality Noted Date [...] FOR WHEEZING 1 Active ergocalciferol 1.25 MG (86414 UT) capsule Take 1 capsule (50,000 Units total) by mouth 1 (one) time per week 4 capsule 5 1 Active cetirizine (ZyrTEC) 10 MG tablet Take 10 mg by mouth 1 (one) time each day Active Fluticasone-Salm eterol 100-50 MCG/ACT aerosol powder [facility] - [place], [place] - [id number] [place] [phone] 60.00 Each 5 30 INHALE 1 PUFF [...] mouth daily. Prescribed by Dr. Car Mcdonald (open source developer). 2 Active aspirin (ST ANITRA) 81 MG [...] asthma 03/31/2022 Overview (09/15/2022): 08/19/21 Eval at [facility]. Increase Advair to 100/50 F/u 6 months. 05/24/22 Eval at [facility], Dr Funez. Recommends Trelegy once daily. Plan for sleep study to assess need for CPAP. 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 Permacath for dialysis removed and a new one replaced. Will get cefazolin x 4 weeks after dialysis. Lantus decreased to 30 units. Pt to continue on Eliquis for the next few weeks until his AV fistula is ready for utilization. Abdominal pain 03/19/2021 Bacteremia 03/19/2021 Venous thrombosis 01/04/2021 Overview (01/26/2021): 12/13/20-12/19/20 Admitted to [facility] for non-occulsive thrombosis in R internal jugular vein. Acute embolism and thrombosis of left internal j ugular vein 12/21/2020 End stage renal failure on dialysis 11/19/2020 Overview (10/05/2021): [facility] Hypocalcemia 11/13/2020 Angina pectoris 11/09/2020 Coagulation defect 11/09/2020 Headache 11/09/2020 Type 2 diabetes mellitus with diabetic nephropat hy 11/09/2020 Edema 09/28/2020 Iron deficiency anemia 12/24/2019 Chronic kidney disease stage 4 02/19/2019 Anemia in chronic kidney disease 02/19/2019 History of colonoscopy 03/30/2016 Overview (01/26/2021): Approximately 2010 in [place] per Pt 11/24/20 Eval at [facility], recommend colonoscopy. Resolved Problems Problem [...] diabetes mellitus 06/12/2015 Overview (01/26/2021): Followed by [facility]. Last visit 06/23/15, HbA1c = 11.1%. Has diabetic nephropathy, retinopathy, and peripheral neuropathy. Switched to Novolin 70/30. Taking 23 units TID with meals, may titrate up/down depending on BG readings over the next few days. They are trying to submit PA for Lyrica. 04/27/16 F/u with Estefani Kaur, at [facility]. Titrate Novolog 70/30 to 22 units with breakfast, 30 units with dinner. If no improvement or if ongoing hypoglycemia will consider switchign to Levemir and Humalog; F/u 3 months 11/03/20 F/u [facility]. A1c > 12% Continue Lanuts 52 and Humalog 4-8 untsi with meals. Consider using NPH during peritoneal dialysis Encounters Date Type Department Care Team Description 05/01/2024 Orders Only [facility] [address] [address] Car Mcdonald MD 2024 Orders Only [facility] [address] [address] Car Mcdonald MD 2024 Treatment [facility] [address] [place] [address] Arely Hernández APRN 04/24/2024 Treatment [facility] [address] [place] [address] Malcolm Taylor MD End stage renal disease; Dependence on renal dialysis 04/24/2024 Orders Only [facility] [address] [address] Car Mcdonald MD 04/22/2024 Orders Only [facility] [address] [address] Car Mcdonald MD 04/19/2024 Orders Only [facility] [address] [address] Car Mcdonald MD 04/19/2024 Treatment [facility] [address] [place] [address] Arely Hernández, BANQUET MANAGER 04/05/2024 Treatment [facility] [address] [place] [address] Arely Hernández, BANQUET MANAGER 04/03/2024 Orders Only [facility] [address] [address] Car Mcdonald MD 04/01/2024 Treatment [facility] [address] [place] [address] Malcolm Taylor MD 03/29/2024 Orders Only [facility] [address] [address] Car Mcdonald MD 03/15/2024 Treatment [facility] [address] [place] [address] Malcolm Taylor MD 03/13/2024 Orders Only [facility] [address] [address] Car Mcdonald MD from Last 3 Months [...] at 65 Diabetes Mother Heart disease Mother AR Stroke Mother grandfather Hypertension Sibling 1 Kidney [...] POST CHEMISTRY Routine 03/13/2024 HEMATOLOGY Routine 03/13/2024 SPECIAL CHEMISTRY Routine 03/08/2024 from Last 3 Months or Most Recently Relevant to Health Maintenance Results * (ABNORMAL) HD KINETICS (05/01/2024) Only the most recent of4 resultswithin the time period is included. % Urea Reduction 59(L) 65 - 80 % [facility] 05/01/2024 05/02/2024 8:3 0 AM EST Narrative Resulting Agency Comment Specimen source: Plasma us Car Mcdonald MD LAB BLOOD ORDERABLES Final Re sult [facility] See order comments or contact performing lab Unknown, [place] * (ABNORMAL) POST CHEMISTRY (05/01/2024) Only the most recent of4 resultswithin the time period is included. BUN Post Dialysis 36(H) 6 - 19 mg/dL [facility] 05/01/2024 05/02/2024 8:3 0 AM EST Narrative [facility] - 05/02/2024 Unless otherwise specified, test(s) performed at: [facility], [address] [place] [address] DRYWALL BOARDHANGER: Homero Garcia M.D. For any questions, please call customer service at FREQUENCY:OTHER Resulting Agency Comment Specimen source: Plasma Cra Mcdonald MD LAB BLOOD ORDERABLES Final Re sult Performing Organization Address [place] de Phone Number [facility] See order comments or contact performing lab Unknown, [place] * (ABNORMAL) HEMATOLOGY (05/01/2024) Only the most recent of6 resultswithin the time period is included. Hemoglobin 9.1(L) 14.0 - 18.0 g/dL [facility] Hemoglobin x 3 27.3(L) 42.0 - 54.0 % [facility] 05/01/2024 05/02/2024 8:3 7 AM EST Narrative [facility] - 05/02/2024 Unless otherwise specified, test(s) performed at: [facility], [address] [place] [address] DRYWALL BOARDHANGER: Homero Garcia M.D. For any questions, please call customer service at FREQUENCY:OTHER Resulting Agency Comment Specimen source: Blood Car Mcdonald MD LAB BLOOD ORDERABLES Final Re sult Performing Organization Address [facility] de Phone Number [facility] See order comments or contact performing lab Unknown, [place] * (ABNORMAL) [facility] (05/01/2024) Only the most recent of6 resultswithin the time period is included. BUN 88(H) 6 - 19 mg/dL [facility] 05/01/2024 05/02/2024 8:5 4 AM EST Narrative [facility] - 05/02/2024 Unless otherwise specified, test(s) performed at: [facility], [address] [place], [place] [id number] DRYWALL BOARDHANGER: Homero Garcia M.D. For any questions, please call customer service at FREQUENCY:OTHER Resulting Agency Comment Specimen source: Serum Car Mcdonald MD LAB BLOOD ORDERABLES Final Re sult Performing Organization Address [place]/State/ZIP Co de Phone Number [facility] See order comments or contact performing lab Unknown, [place] * [facility] Results (05/01/2024) Only the most recent of3 resultswithin the time period is included. eKt/V (Tattersall) 0.87 [facility] eKdrt/V 0.85 [facility] eNPCR 1.07 [facility] spKt/V Gotch 1.12 [facility] ge Center PCR 74.63 [facility] nPCR_HD 1.23 [facility] eKt/V Gotch 0.85 [facility] spKt/V (Daugirdas II) 1.10 [facility] WSTDKT/V 2.0 [facility] 05/01/2024 05/01/2024 [facility] Ordering Provider LAB BLOOD ORDERABLES Final Result Performing Organization Address City/[facility]/ZIP Co de Phone Number [facility] Contact Performing lab Unknown, [place] * IMMUNO CHEMISTRY (04/19/2024) Pathologist [facility] Hep B Surface Ag Negative Negative [facility] 04/19/2024 04/20/2024 12: 30 PM EST Narrative [facility] - 04/20/2024 Unless otherwise specified, test(s) performed at: [facility], [address] [place] [address] DRYWALL BOARDHANGER: Homero Garcia M.D. For any questions, please call customer service at FREQUENCY:MONTHLY Resulting Agency Comment Specimen source: Serum Car Mcdonald MD LAB BLOOD ORDERABLES Final Re sult [facility] See order comments or contact performing lab Unknown, [place] * (ABNORMAL) SPECIAL CHEMISTRY (03/08/2024) Pathologist [facility] Hemoglobin A1C 7.9(H) 4.8 - 5.9 % [facility] 03/08/2024 03/09/2024 10: 45 AM EST Narrative Resulting Agency Comment Specimen source: Blood Car Mcdonald MD LAB BLOOD BANK TEST ORDERABLE S Final Result [facility] See order comments or contact performing lab Unknown, [place] from Last 3 Months or Most Recently Relevant to Health Maintenance Insurance [place] [id number] Member Subscriber Plan / Payer (Ef fective 2022-Present) Name:Beau Marie Relation to Subscriber:Self Name:Beau Marie Payer ID:[id number] (NAIC) Type:Not on file Address: [place] [id number] [place] Care Teams Respiratory Assistant Relationship Specialty Start Date End Date Jade Lewis MD [address] [place] [id number] PCP - General Internal Medicine 04/25/22
--- OUTSIDE RECORDS SUMMARY | 2024-06-11 09:10 | XMS_ITS | Encounter Summary ---
Author Organization [facility], Address [address] [place] [address] Phone Care Team Providers Care Results Engineer Name Role Phone Jade Lewis MD Primary Care Provider + [phone] Reason for Visit * Reason Comments Med Refill Encounter Details Date Type Department Care Team ([facility] st Contact Info) Description 11/27/2020 Refill [facility] [address] [place] [phone] Alejandro Santana MD [address] [place] [phone] Social History Tobacco Use Types Packs/Day Years [...] on filedocumented in this encounter Care Teams Results Engineer Relationship Specialty Start Date End Date Jade Lewis MD [address] [place] [address] PCP - General Internal Medicine 04/25/22 documented as of this encounter
--- OUTSIDE RECORDS SUMMARY | 2024-06-11 09:10 | XMS_ITS | Encounter Summary ---
Author Organization [facility] [place], Address [address] [place] [address] Phone Care Team Providers Care Drill Press Operator For Metal Name Role Phone Jade Lewis MD Primary Care Provider + [phone] Reason for Visit * Reason Comments Med Refill Encounter Details Date Type Department Care Team ([facility] st Contact Info) Description 10/28/2020 Refill [facility] [address] [place] [phone] Alejandro Santana MD [address] [place] [phone] Social History Tobacco Use Types Packs/Day Years [...] on filedocumented in this encounter Care Teams Drill Press Operator For Metal Relationship Specialty Start Date End Date Jade Lewis MD [address] [place] [id number] PCP - General Internal Medicine 04/25/22 documented as of this encounter
--- OUTSIDE RECORDS SUMMARY | 2024-06-11 09:10 | XMS_ITS | Encounter Summary ---
Author Organization [facility] [place], Address [address] [place] [address] Phone Care Team Providers Care Soft Sugar Supervisor Name Role Phone Jade Lewis MD Primary Care Provider [phone] Reason for Visit * Reason Comments Med Refill Encounter Details Date Type Department Care Team (Late st Contact Info) Description 09/17/2022 Refill [facility] [address] [place] [phone] Malcolm Taylor MD [address] [place] [address] [place] [address] Social History Tobacco Use Types Packs/Day Years [...] on filedocumented in this encounter Care Teams Soft Sugar Supervisor Relationship Specialty Start Date End Date Jade Lewis MD [address] [place] [address] PCP - General Internal Medicine 04/25/22 documented as of this encounter
--- OUTSIDE RECORDS SUMMARY | 2024-06-11 09:10 | XMS_ITS | Encounter Summary ---
Author Organization [facility] Address [address] [place] [address] Care Team Providers Care Greenskeeper Head Name Role Phone Cass Turcios MD Primary Care Provider [phone] Encounter Details Date Type Department Care Team (Late st Contact Info) Description 05/20/2024 Lab Requisition [facility] - Main Lab [address] [facility] [place] [address] Laurence Florence MD [address] [place] [address] Elevated white blood cell count, unspecified Social [...] for your loved ones. For example, child welfare caseworker or elderly care for an older adult? [...] mmol/L LAB CHEMISTRY METHOD 05/20/2024 1:59 PM [facility] Potassium 5.8(H) 3.5 - 5.5 mmol/L LAB CHEMISTRY METHOD 05/20/2024 1:59 PM [facility] Chloride 100 96 - 110 mmol/L LAB CHEMISTRY METHOD 05/20/2024 1:59 PM [facility] CO2 26 21 - 32 mmol/L LAB CHEMISTRY METHOD 05/20/2024 1:59 PM [facility] Anion Gap 12(H) 3 - 11 LAB CHEMISTRY METHOD 05/20/2024 1:59 PM [facility] Glucose 130(H) 70 - 100 mg/dL LAB CHEMISTRY METHOD 05/20/2024 1:59 PM [facility] BUN 76(H) 5 - 25 mg/dL LAB CHEMISTRY METHOD 05/20/2024 1:59 PM [facility] Creatinine 9.66(H) 0.70 - 1.30 mg/dL LAB CHEMISTRY METHOD 05/20/2024 1:59 PM [facility] eGFR 5(L) >=60 mL/min/1. 73m2 LAB CHEMISTRY METHOD 05/20/2024 1:59 PM [facility] Comment:Calculation based on the??Chronic Kidney Disease Epidemiology Collaboration (CKD-EPI) equation refit??without adjustment for race. BUN/Creatinine Ratio 7.9 LAB CHEMISTRY METHOD 05/20/2024 1:59 PM [facility] Calcium 9.2 8.5 - 10.5 mg/dL LAB CHEMISTRY METHOD 05/20/2024 1:59 PM [facility] AST (SGOT) 9(L) 10 - 42 unit/L LAB CHEMISTRY METHOD 05/20/2024 1:59 PM [facility] ALT (SGPT) 14 10 - 60 unit/L LAB CHEMISTRY METHOD 05/20/2024 1:59 PM EDT [facility] Alkaline Phosphatase 142(H) 42 - 121 unit/L LAB CHEMISTRY METHOD 05/20/2024 1:59 PM EDT [facility] Total Protein 6.1 6.0 - 8.0 g/dL LAB CHEMISTRY METHOD 05/20/2024 1:59 PM EDT [facility] Albumin 2.5(L) 3.2 - 5.0 g/dL LAB CHEMISTRY METHOD 05/20/2024 1:59 PM EDT [facility] Total Bilirubin 0.4 0.0 - 1.4 mg/dL LAB CHEMISTRY METHOD 05/20/2024 1:59 PM EDT [facility] Blood Venous blood specimen / Unknown Venipuncture / Unknown 05/20/2024 6:04 AM EDT 05/20/2024 11:40 AM EDT us Laurence Florence MD LAB BLOOD ORDERABLES Final Resu lt [facility] [address] [place] [address], * (ABNORMAL) Complete blood count (05/20/2024 6:04 AM EDT) WBC 15.6(H) 4.8 - 10.8 K/mcL LAB HEMETOLOGY METHOD 05/20/2024 1:18 PM EDT [facility] RBC 3.50(L) 4.50 - 5.50 M/mcL LAB HEMETOLOGY METHOD 05/20/2024 1:18 PM EDT [facility] Hemoglobin 8.6(L) 13.5 - 17.5 g/dL LAB HEMETOLOGY METHOD 05/20/2024 1:18 PM EDT [facility] Hematocrit 29.0(L) 42.0 - 54.0 % LAB HEMETOLOGY METHOD 05/20/2024 1:18 PM EDT [facility] MCV 82.9 79.0 - 98.0 FL LAB HEMETOLOGY METHOD 05/20/2024 1:18 PM EDT [facility] MCH 24.6(L) 27.0 - 32.0 pcg LAB HEMETOLOGY METHOD 05/20/2024 1:18 PM EDT [facility] MCHC 29.7(L) 32.0 - 37.0 g/dL LAB HEMETOLOGY METHOD 05/20/2024 1:18 PM EDT [facility] RDW 19.1(H) 11.0 - 15.0 % LAB HEMETOLOGY METHOD 05/20/2024 1:18 PM EDT [facility] Platelets 479(H) 130 - 400 K/mcL LAB HEMETOLOGY METHOD 05/20/2024 1:18 PM EDT [facility] MPV 11.3(H) 7.0 - 11.0 FL LAB HEMETOLOGY METHOD 05/20/2024 1:18 PM EDT [facility] NRBC 0.0 <1.0 % LAB HEMETOLOGY METHOD 05/20/2024 1:18 PM EDT [facility] NRBC Absolute 0.00 <0.10 K/mcL LAB HEMETOLOGY METHOD 05/20/2024 1:18 PM EDT [facility] Blood Venous blood specimen / Unknown Venipuncture / Unknown 05/20/2024 6:04 AM EDT 05/20/2024 11:40 AM EDT us Laurence Florence MD LAB BLOOD ORDERABLES Final Resu lt [facility] [address] [place] [address], documented in this encounter Visit Diagnoses Diagnosis Elevated white blood cell count, unspecified documented in this encounter Care Teams Greenskeeper Head Relationship Specialty Start Date End Date Cass Turcios MD [address] [place] [address] [address] [place] [address] PCP - General Geriatric Medicine 04/02/24 documented as of this encounter
--- OUTSIDE RECORDS SUMMARY | 2024-06-11 09:10 | XMS_ITS | Encounter Summary ---
Author Organization [facility] Address [address] [place] [address] Care Team Providers Care Double End Sewer Name Role Phone Cass Turcios MD Primary Care Provider [phone] Encounter Details Date Type Department Care Team (Late st Contact Info) Description 05/30/2024 Lab Requisition [facility] - Main Lab 299 [facility] [place] [place] [address] Laurence Florence MD [address] [place] [phone] Chronic respiratory failure with hypoxia (CMS/HCC); Encounter [...] the circulatory system Peripheral vascular disease, unspecified ([facility]/HCC) SEDIMENTATION RATE Routine 05/30/2024 7: 36 [...] LAB MICROBIOLOGY METHOD 06/04/2024 9:[address] [facility] Blood Venipuncture / Unknown 05/30/2024 7:36 AM EDT 05/30/2024 8:11 AM EDT us Laurence Florence MD LAB MICROBIOLOGY - GENERAL ORDE VANNESSA Final Result [facility] [address] [place] [address], * Lactate (05/30/2024 7:36 AM EDT) Lactate 0.6 0.4 - 2.0 mmol/L LAB CHEMISTRY METHOD 05/30/2024 8:[address] [facility] Blood Venous blood specimen / Unknown Venipuncture / Unknown 05/30/2024 7:36 AM EDT 05/30/2024 8:11 AM EDT us Laurence Florence MD LAB BLOOD ORDERABLES Final Resu lt Performing Organization Address [facility]/ZIP Co de Phone Number [facility] [address] [place] [address], [place] [phone] * (ABNORMAL) C-reactive protein (05/30/2024 7:36 AM EDT) [facility] C-Reactive Protein 11.60(H) <=0.50 mg/dL LAB CHEMISTRY METHOD 05/30/2024 8:[address] [facility] Blood Venous blood specimen / Unknown Venipuncture / Unknown 05/30/2024 7:36 AM EDT 05/30/2024 8:11 AM EDT us Laurence Florence MD LAB BLOOD ORDERABLES Final Resu lt Performing Organization Address City/[facility]/ZIP Co de Phone Number [facility] [address] [place] [address], [place] [phone] * (ABNORMAL) Sedimentation rate (05/30/2024 7:36 AM EDT) [facility] Sed Rate >130(H) 0 - 20 mm/hr LAB HEMETOLOGY METHOD 05/30/2024 8:[address] [facility] Blood Venous blood specimen / Unknown Venipuncture / Unknown 05/30/2024 7:36 AM EDT 05/30/2024 8:[address] [facility] - 05/30/2024 8:57 AM EDT Rechecked. us Laurence Florence MD LAB BLOOD ORDERABLES Final Resu lt [facility] [address] [place] [address], [place] [phone] * (ABNORMAL) Comprehensive metabolic panel (05/30/2024 7:36 AM EDT) Sodium 140 133 - 145 mmol/L LAB CHEMISTRY METHOD 05/30/2024 9:08 AM [facility] Potassium 4.2 3.5 - 5.5 mmol/L LAB CHEMISTRY METHOD 05/30/2024 9:08 AM [facility] Chloride 104 96 - 110 mmol/L LAB CHEMISTRY METHOD 05/30/2024 9:08 AM [facility] CO2 28 21 - 32 mmol/L LAB CHEMISTRY METHOD 05/30/2024 9:08 AM [facility] Anion Gap 8 3 - 11 LAB CHEMISTRY METHOD 05/30/2024 9:08 AM [facility] Glucose 77 70 - 100 mg/dL LAB CHEMISTRY METHOD 05/30/2024 9:08 AM [facility] BUN 35(H) 5 - 25 mg/dL LAB CHEMISTRY METHOD 05/30/2024 9:08 AM [facility] Creatinine 5.30(H) 0.70 - 1.30 mg/dL LAB CHEMISTRY METHOD 05/30/2024 9:08 AM [facility] eGFR 11(L) >=60 mL/min/1. 73m2 LAB CHEMISTRY METHOD 05/30/2024 9:08 AM [facility] Comment:Calculation based on the??Chronic Kidney Disease Epidemiology Collaboration (CKD-EPI) equation refit??without adjustment for race. BUN/Creatinine Ratio 6.6 LAB CHEMISTRY METHOD 05/30/2024 9:08 AM [facility] Calcium 9.0 8.5 - 10.5 mg/dL LAB CHEMISTRY METHOD 05/30/2024 9:08 AM [facility] AST (SGOT) 10 10 - 42 unit/L LAB CHEMISTRY METHOD 05/30/2024 9:08 AM [facility] ALT (SGPT) 13 10 - 60 unit/L LAB CHEMISTRY METHOD 05/30/2024 9:08 AM [facility] Alkaline Phosphatase 141(H) 42 - 121 unit/L LAB CHEMISTRY METHOD 05/30/2024 9:08 AM [facility] Total Protein 6.3 6.0 - 8.0 g/dL LAB CHEMISTRY METHOD 05/30/2024 9:08 AM [facility] Albumin 2.5(L) 3.2 - 5.0 g/dL LAB CHEMISTRY METHOD 05/30/2024 9:08 AM [facility] Total Bilirubin 0.5 0.0 - 1.4 mg/dL LAB CHEMISTRY METHOD 05/30/2024 9:08 AM [facility] Blood Venous blood specimen / Unknown Venipuncture / Unknown 05/30/2024 7:36 AM EDT 05/30/2024 8:11 AM EDT us Laurence Florence MD LAB BLOOD ORDERABLES Final Resu lt [facility] [address] [place] [address], * (ABNORMAL) Complete blood count (05/30/2024 7:36 AM EDT) WBC 9.7 4.8 - 10.8 K/mcL LAB HEMETOLOGY METHOD 05/30/2024 8:[address] [facility] RBC 3.20(L) 4.50 - 5.50 M/mcL LAB HEMETOLOGY METHOD 05/30/2024 8:29 AM [facility] Hemoglobin 7.7(L) 13.5 - 17.5 g/dL LAB HEMETOLOGY METHOD 05/30/2024 8:29 AM [facility] Hematocrit 26.0(L) 42.0 - 54.0 % LAB HEMETOLOGY METHOD 05/30/2024 8:29 AM [facility] MCV 81.5 79.0 - 98.0 FL LAB HEMETOLOGY METHOD 05/30/2024 8:29 AM [facility] MCH 24.1(L) 27.0 - 32.0 pcg LAB HEMETOLOGY METHOD 05/30/2024 8:29 AM [facility] MCHC 29.6(L) 32.0 - 37.0 g/dL LAB HEMETOLOGY METHOD 05/30/2024 8:29 AM [facility] RDW 17.8(H) 11.0 - 15.0 % LAB HEMETOLOGY METHOD 05/30/2024 8:29 AM [facility] Platelets 244 130 - 400 K/mcL LAB HEMETOLOGY METHOD 05/30/2024 8:29 AM [facility] MPV 11.1(H) 7.0 - 11.0 FL LAB HEMETOLOGY METHOD 05/30/2024 8:29 AM [facility] NRBC 0.0 <1.0 % LAB HEMETOLOGY METHOD 05/30/2024 8:29 AM [facility] NRBC Absolute 0.00 <0.10 K/mcL LAB HEMETOLOGY METHOD 05/30/2024 8:29 AM [facility] Blood Venous blood specimen / Unknown Venipuncture / Unknown 05/30/2024 7:36 AM EDT 05/30/2024 8:11 AM EDT us Laurence Florence MD LAB BLOOD ORDERABLES Final Resu lt [facility] ([facility]) [facility] [address] [place] [address], documented in this encounter Visit Diagnoses Diagnosis Chronic respiratory failure with hypoxia Encounter for orthopedic aftercare following surgical amputation Encounter for surgical aftercare following surgery on the circulatory system Peripheral vascular disease, unspecified (CMS/HCC) Peripheral vascular disease, unspecified documented in this encounter Care Teams Double End Sewer Relationship Specialty Start Date End Date Cass Turcios MD [address] [facility] [address] [place] [address] PCP - General Geriatric Medicine 04/02/24 documented as of this encounter
--- OUTSIDE RECORDS SUMMARY | 2024-06-11 09:10 | XMS_ITS | Encounter Summary ---
Author Organization [facility] Address [address] [place] [address] Care Team Providers Care Ultrasonic Solderer Name Role Phone Cass Turcios MD Primary Care Provider [phone] Encounter Details Date Type Department Care Team ([facility] st Contact Info) Description 05/21/2024 Lab Requisition [facility] - Main Lab 299 [facility] [place] [address] Laurence Florence MD [address] [place] [phone] Chronic combined systolic (congestive) and diastolic (congestive) [...] for your loved ones. For example, child specialist or elderly care for an older [...] auto differential (05/21/2024 5:40 AM EDT) Pathologist [facility] WBC 14.4(H) 4.8 - 10.8 K/mcL LAB HEMETOLOGY [facility] RBC 3.80(L) 4.50 - 5.50 M/mcL LAB HEMETOLOGY METHOD 05/21/2024 12:49 PM [facility] Hemoglobin 9.5(L) 13.5 - 17.5 g/dL LAB HEMETOLOGY METHOD 05/21/2024 12:49 PM [facility] Hematocrit 33.1(L) 42.0 - 54.0 % LAB HEMETOLOGY METHOD 05/21/2024 12:49 PM [facility] MCV 87.1 79.0 - 98.0 FL LAB HEMETOLOGY METHOD 05/21/2024 12:49 PM [facility] MCH 25.0(L) 27.0 - 32.0 pcg LAB HEMETOLOGY METHOD 05/21/2024 12:49 PM [facility] MCHC 28.7(L) 32.0 - 37.0 g/dL LAB HEMETOLOGY METHOD 05/21/2024 12:49 PM [facility] RDW 19.6(H) 11.0 - 15.0 % LAB HEMETOLOGY METHOD 05/21/2024 12:49 PM [facility] Platelets 447(H) 130 - 400 K/mcL LAB HEMETOLOGY METHOD 05/21/2024 12:[facility] MPV 11.3(H) 7.0 - 11.0 FL LAB HEMETOLOGY METHOD 05/21/2024 12:49 PM [facility] NRBC 0.0 <1.0 % LAB HEMETOLOGY METHOD 05/21/2024 12:49 PM [facility] NRBC Absolute 0.00 <0.10 K/mcL LAB HEMETOLOGY METHOD 05/21/2024 12:49 PM [facility] Neutrophils Relative 76.8 % LAB HEMETOLOGY METHOD 05/21/2024 12:49 PM [facility] Lymphocytes Relative 13.0 % LAB HEMETOLOGY METHOD 05/21/2024 12:49 PM [facility] Monocytes Relative 7.0 % LAB HEMETOLOGY METHOD 05/21/2024 12:49 PM [facility] Eosinophils Relative 2.0 % LAB HEMETOLOGY METHOD 05/21/2024 12:49 PM [facility] Basophils Relative 0.4 % LAB HEMETOLOGY METHOD 05/21/2024 12:49 PM [facility] Immature Granulocytes Relative 0.8 % LAB HEMETOLOGY METHOD 05/21/2024 12:49 PM [facility] Neutrophils Absolute 11.05(H) 1.50 - 7.00 K/mcL LAB HEMETOLOGY METHOD 05/21/2024 12:49 PM [facility] Lymphocytes Absolute 1.87 1.00 - 5.00 K/mcL LAB HEMETOLOGY METHOD 05/21/2024 12:49 PM [facility] Monocytes Absolute 1.00 0.20 - 1.00 K/mcL LAB HEMETOLOGY METHOD 05/21/2024 12:49 PM [facility] Eosinophils Absolute 0.29 0.00 - 0.50 K/[facility] LAB HEMETOLOGY METHOD 05/21/2024 12:49 PM EDT [facility] Basophils Absolute 0.06 0.00 - 0.20 K/[facility] LAB HEMETOLOGY METHOD 05/21/2024 12:49 PM EDT [facility] Immature Granulocytes Absolute 0.11(H) 0.00 - 0.03 K/[facility] LAB HEMETOLOGY METHOD 05/21/2024 12:49 PM EDT [facility] Blood Venous blood specimen / Unknown Venipuncture / Unknown 05/21/2024 5:40 AM EDT 05/21/2024 11:19 AM EDT us Laurence Florence MD LAB BLOOD ORDERABLES Final Resu lt [facility] [address] [place] [address], * (ABNORMAL) Basic metabolic panel (05/21/2024 5:40 AM EDT) Sodium 137 133 - 145 mmol/L LAB CHEMISTRY METHOD 05/21/2024 2:38 PM [facility] Potassium 5.3 3.5 - 5.5 mmol/L LAB CHEMISTRY METHOD 05/21/2024 2:38 PM [facility] Comment:Hemolysis present Chloride 99 96 - 110 mmol/L LAB CHEMISTRY METHOD 05/21/2024 2:38 PM [facility] CO2 27 21 - 32 mmol/L LAB CHEMISTRY METHOD 05/21/2024 2:38 PM [facility] Anion Gap 11 3 - 11 LAB CHEMISTRY METHOD 05/21/2024 2:38 PM [facility] Glucose 76 70 - 100 mg/dL LAB CHEMISTRY METHOD 05/21/2024 2:38 PM [facility] BUN 58(H) 5 - 25 mg/dL LAB CHEMISTRY METHOD 05/21/2024 2:38 PM EDT [facility] Creatinine 7.10(H) 0.70 - 1.30 mg/dL LAB CHEMISTRY METHOD 05/21/2024 2:38 PM EDT [facility] eGFR 8(L) >=60 mL/min/1. 73m2 LAB CHEMISTRY METHOD 05/21/2024 2:38 PM EDT [facility] Comment:Calculation based on the??Chronic Kidney Disease Epidemiology Collaboration (CKD-EPI) equation refit??without adjustment for race. BUN/Creatinine Ratio 8.2 LAB CHEMISTRY METHOD 05/21/2024 2:38 PM EDT [facility] Calcium 8.6 8.5 - 10.5 mg/dL LAB CHEMISTRY METHOD 05/21/2024 2:38 PM EDT [facility] Blood Venous blood specimen / Unknown Venipuncture / Unknown 05/21/2024 5:40 AM EDT 05/21/2024 11:19 AM EDT us Laurence Florence MD LAB BLOOD ORDERABLES Final Resu lt [facility] [address] [place] [address], documented in this encounter Visit Diagnoses Diagnosis Chronic combined systolic (congestive) and diastolic (congestive) heart failure End stage renal disease (CMS/HCC) End stage renal disease documented in this encounter Care Teams Ultrasonic Solderer Relationship Specialty Start Date End Date Cass Turcios MD [address] [place] [address] [address] [place] [address] PCP - General Geriatric Medicine 04/02/24 documented as of this encounter
--- OUTSIDE RECORDS SUMMARY | 2024-06-11 09:10 | XMS_ITS | Encounter Summary ---
Author Organization [facility] Address [address] [place] [address] Care Team Providers Care Orthopedic Nurse Practitioner Name Role Phone Cass Turcios MD Primary Care Provider [phone] Encounter Details Date Type Department Care Team (Latest Contact Info) Description 05/28/2024 Lab Requisition [facility] - Main Lab 299 [facility] [place] [address] Laurence Florence MD [address] [place] [address] Anemia, unspecified; End stage renal disease (CMS/HCC); [...] for your loved ones. For example, children's attendant or elderly care for an older [...] (ABNORMAL) Magnesium (05/29/2024 5:09 AM EDT) Pathologist [facility] Magnesium 1.8(L) 1.9 - 2.6 mg/dL LAB CHEMISTRY METHOD 05/29/2024 9:20 AM EDT [facility] Blood Venous blood specimen / Unknown Venipuncture / Unknown 05/29/2024 5:09 AM EDT 05/29/2024 8:42 AM EDT us Laurence Florence MD LAB BLOOD ORDERABLES Final Resu lt [facility] [address] [place] [address], [place] [phone] * (ABNORMAL) Complete blood count (05/29/2024 5:09 AM EDT) [facility] WBC 10.8 4.8 - 10.8 K/mcL LAB HEMETOLOGY METHOD 05/29/2024 9:01 AM EDT [facility] RBC 3.50(L) 4.50 - 5.50 M/mcL LAB HEMETOLOGY METHOD 05/29/2024 9:01 AM EDT [facility] Hemoglobin 8.2(L) 13.5 - 17.5 g/dL LAB HEMETOLOGY METHOD 05/29/2024 9:01 AM EDT [facility] Hematocrit 28.4(L) 42.0 - 54.0 % LAB HEMETOLOGY METHOD 05/29/2024 9:01 AM T [facility] MCV 81.8 79.0 - 98.0 FL LAB HEMETOLOGY METHOD 05/29/2024 9:01 AM EDT [facility] MCH 23.6(L) 27.0 - 32.0 pcg LAB HEMETOLOGY METHOD 05/29/2024 9:01 AM EDT [facility] MCHC 28.9(L) 32.0 - 37.0 g/dL LAB HEMETOLOGY METHOD 05/29/2024 9:01 AM [facility] RDW 18.2(H) 11.0 - 15.0 % LAB HEMETOLOGY METHOD 05/29/2024 9:01 AM EDT [facility] Platelets 263 130 - 400 K/mcL LAB HEMETOLOGY METHOD 05/29/2024 9:01 AM [facility] MPV 11.2(H) 7.0 - 11.0 FL LAB HEMETOLOGY METHOD 05/29/2024 9:01 AM [facility] NRBC 0.0 <1.0 % LAB HEMETOLOGY METHOD 05/29/2024 9:01 AM [facility] NRBC Absolute 0.00 <0.10 K/mcL LAB HEMETOLOGY METHOD 05/29/2024 9:01 AM [facility] Blood Venous blood specimen / Unknown Venipuncture / Unknown 05/29/2024 5:09 AM EDT 05/29/2024 8:42 AM EDT us Laurence Florence MD LAB BLOOD ORDERABLES Final Resu lt [facility] [address] [place] [address], * (ABNORMAL) Renal function panel (05/29/2024 5:09 AM EDT) Sodium 135 133 - 145 mmol/L LAB CHEMISTRY METHOD 05/29/2024 10:03 AM [facility] Potassium 4.7 3.5 - 5.5 mmol/L LAB CHEMISTRY METHOD 05/29/2024 10:03 AM [facility] Chloride 99 96 - 110 mmol/L LAB CHEMISTRY METHOD 05/29/2024 10:03 AM [facility] CO2 27 21 - 32 mmol/L LAB CHEMISTRY METHOD 05/29/2024 10:03 AM [facility] Anion Gap 9 3 - 11 LAB CHEMISTRY METHOD 05/29/2024 10:03 AM [facility] Glucose 22(LL) 70 - 100 mg/dL LAB CHEMISTRY METHOD 05/29/2024 10:03 AM [facility] BUN 60(H) 5 - 25 mg/dL LAB CHEMISTRY METHOD 05/29/2024 10:03 AM [facility] Creatinine 7.71(H) 0.70 - 1.30 mg/dL LAB CHEMISTRY METHOD 05/29/2024 10:03 AM [facility] eGFR 7(L) >=60 mL/min/1. 73m2 LAB CHEMISTRY METHOD 05/29/2024 10:03 AM [facility] Comment:Calculation based on the??Chronic Kidney Disease Epidemiology Collaboration (CKD-EPI) equation refit??without adjustment for race. BUN/Creatinine Ratio 7.8 LAB CHEMISTRY METHOD 05/29/2024 10:03 AM [facility] Albumin 2.4(L) 3.2 - 5.0 g/dL LAB CHEMISTRY METHOD 05/29/2024 10:03 AM [facility] Calcium 8.7 8.5 - 10.5 mg/dL LAB CHEMISTRY METHOD 05/29/2024 10:03 AM [facility] Phosphorus 4.7(H) 2.5 - 4.5 mg/dL LAB CHEMISTRY METHOD 05/29/2024 10:03 AM [facility] Blood Venous blood specimen / Unknown Venipuncture / Unknown 05/29/2024 5:09 AM EDT 05/29/2024 8:42 AM EDT us Laurence Florence MD LAB BLOOD ORDERABLES Final Resu lt [facility] ([facility]) [facility] [address] [place] [address], documented in this encounter Visit Diagnoses Diagnosis Anemia, unspecified End stage renal disease (CMS/[facility]) End stage renal disease Unspecified asthma, uncomplicated documented in this encounter Care Teams Orthopedic Nurse Practitioner Relationship Specialty Start Date End Date Cass Turcios MD [address] [place] [address] [address] [place] [address] PCP - General Geriatric Medicine 04/02/24 documented as of this encounter
--- OUTSIDE RECORDS SUMMARY | 2024-06-11 09:10 | XMS_ITS | Encounter Summary ---
Author Organization [facility] Address [address] [place] [address] Care Team Providers Care Deportation Officer Name Role Phone Cass Turcios MD Primary Care Provider [phone] Encounter Details Date Type Department Care Team (Latest Contact Info) Description 05/17/2024 Lab Requisition [facility] - Main Lab [address] [facility] [place] [address] Laurence Florence MD [address] [place] [phone] Type 2 diabetes mellitus without complications (CMS/HCC); [...] for your loved ones. For example, child health associate or elderly care for an older [...] EDT Type 2 diabetes mellitus without complications ([facility]/HCC) End stage renal disease ([facility]/HCC) documented in this encounter Results * (ABNORMAL) Basic metabolic panel (05/17/2024 5:37 AM EDT) Sodium 135 133 - 145 mmol/L LAB CHEMISTRY METHOD 05/17/2024 11:32 AM [facility] Potassium 5.5 3.5 - 5.5 mmol/L LAB CHEMISTRY METHOD 05/17/2024 11:32 AM [facility] Chloride 95(L) 96 - 110 mmol/L LAB CHEMISTRY METHOD 05/17/2024 11:32 AM [facility] CO2 29 21 - 32 mmol/L LAB CHEMISTRY METHOD 05/17/2024 11:32 AM [facility] Anion Gap 11 3 - 11 LAB CHEMISTRY METHOD 05/17/2024 11:32 AM [facility] Glucose 173(H) 70 - 100 mg/dL LAB CHEMISTRY METHOD 05/17/2024 11:32 AM [facility] BUN 52(H) 5 - 25 mg/dL LAB CHEMISTRY METHOD 05/17/2024 11:32 AM [facility] Creatinine 7.48(H) 0.70 - 1.30 mg/dL LAB CHEMISTRY METHOD 05/17/2024 11:32 AM [facility] eGFR 7(L) >=60 mL/min/1. 73m2 LAB CHEMISTRY METHOD 05/17/2024 11:32 AM [facility] Comment:Calculation based on the??Chronic Kidney Disease Epidemiology Collaboration (CKD-EPI) equation refit??without adjustment for race. BUN/Creatinine Ratio 7.0 LAB CHEMISTRY METHOD 05/17/2024 11:32 AM [facility] Calcium 9.0 8.5 - 10.5 mg/dL LAB CHEMISTRY METHOD 05/17/2024 11:32 AM EDT [facility] Blood Venous blood specimen / Unknown Venipuncture / Unknown 05/17/2024 5:37 AM EDT 05/17/2024 9:43 AM EDT Laurence Florence MD LAB BLOOD ORDERABLES Final Resu lt Performing Organization Address [facility] Co de Phone Number [facility] [address] [place] [address], [place] [phone] * (ABNORMAL) Hemoglobin A1c (05/17/2024 5:37 AM EDT) Hemoglobin A1C 7.1(H) <6.5 % LAB CHEMISTRY METHOD 05/17/2024 1:30 PM EDT [facility] Mean Bld Glu Estim. 157 mg/dL LAB CHEMISTRY METHOD 05/17/2024 1:30 PM EDT [facility] Blood Venous blood specimen / Unknown Venipuncture / Unknown 05/17/2024 5:37 AM EDT 05/17/2024 9:43 AM EDT Laurence Florence MD LAB BLOOD ORDERABLES Final Resu lt Performing Organization Address [facility] de Phone Number [facility] [address] [place] [address], [place] [phone] * (ABNORMAL) Complete blood count (05/17/2024 5:37 AM EDT) WBC 16.6(H) 4.8 - 10.8 K/[facility] LAB HEMETOLOGY METHOD 05/17/2024 10:40 AM EDT [facility] RBC 3.70(L) 4.50 - 5.50 M/[facility] LAB HEMETOLOGY METHOD 05/17/2024 10:40 AM EDT [facility] Hemoglobin 8.9(L) 13.5 - 17.5 g/dL LAB HEMETOLOGY METHOD 05/17/2024 10:40 AM [facility] Hematocrit 30.1(L) 42.0 - 54.0 % LAB HEMETOLOGY METHOD 05/17/2024 10:40 AM [facility] MCV 82.5 79.0 - 98.0 FL LAB HEMETOLOGY METHOD 05/17/2024 10:40 AM [facility] MCH 24.4(L) 27.0 - 32.0 pcg LAB HEMETOLOGY METHOD 05/17/2024 10:40 AM [facility] MCHC 29.6(L) 32.0 - 37.0 g/dL LAB HEMETOLOGY METHOD 05/17/2024 10:40 AM [facility] RDW 18.3(H) 11.0 - 15.0 % LAB HEMETOLOGY METHOD 05/17/2024 10:40 AM [facility] Platelets 431(H) 130 - 400 K/mcL LAB HEMETOLOGY METHOD 05/17/2024 10:40 AM [facility] MPV 10.6 7.0 - 11.0 FL LAB HEMETOLOGY METHOD 05/17/2024 10:40 AM [facility] NRBC 0.0 <1.0 % LAB HEMETOLOGY METHOD 05/17/2024 10:40 AM [facility] NRBC Absolute 0.00 <0.10 K/mcL LAB HEMETOLOGY METHOD 05/17/2024 10:40 AM [facility] Blood Venous blood specimen / Unknown Venipuncture / Unknown 05/17/2024 5:37 AM EDT 05/17/2024 9:43 AM EDT us Laurence Florence MD LAB BLOOD ORDERABLES Final Resu lt [facility] ([facility]) [facility] [address] [place] [address], documented in this encounter Visit Diagnoses Diagnosis Type 2 diabetes mellitus without complications End stage renal disease (CMS/HCC) End stage renal disease documented in this encounter Care Teams Deportation Officer Relationship Specialty Start Date End Date Cass Turcios MD [address] [place] [address] [address] [place] [address] PCP - General Geriatric Medicine 04/02/24 documented as of this encounter
--- OUTSIDE RECORDS SUMMARY | 2024-06-11 09:10 | XMS_ITS | Encounter Summary ---
Author Organization [facility] Address [address] [place] [address] Care Team Providers Care Trade Recruiter Name Role Phone Cass Turcios MD Primary Care Provider [phone] Encounter Details Date Type Department Care Team (Latest Contact Info) Description 05/24/2024 Lab Requisition [facility] - Main Lab 299 [facility] [place] [address] Laurence Florence MD [address] [place] [phone] Chronic combined systolic (congestive) and diastolic (congestive) [...] your loved ones. For example, child welfare social worker or elderly care for an older [...] mellitus without complications End stage renal disease ([facility]) CBC AND DIFFERENTIAL Routine 05/24/2024 5:56 AM [...] CBC auto differential (05/24/2024 5:56 AM EDT) [facility] WBC 9.3 4.8 - 10.8 K/mcL LAB HEMETOLOGY METHOD 05/24/2024 9:31 AM [facility] RBC 3.40(L) 4.50 - 5.50 M/mcL LAB HEMETOLOGY METHOD 05/24/2024 9:31 AM [facility] LAB Hemoglobin 8.5(L) 13.5 - 17.5 g/dL LAB HEMETOLOGY METHOD 05/24/2024 9:31 AM [facility] LAB Hematocrit 28.2(L) 42.0 - 54.0 % LAB HEMETOLOGY METHOD 05/24/2024 9:31 AM [facility] LAB MCV 82.0 79.0 - 98.0 FL LAB HEMETOLOGY METHOD 05/24/2024 9:31 AM [facility] LAB MCH 24.7(L) 27.0 - 32.0 pcg LAB HEMETOLOGY METHOD 05/24/2024 9:31 AM [facility] MCHC 30.1(L) 32.0 - 37.0 g/dL LAB HEMETOLOGY METHOD 05/24/2024 9:31 AM [facility] RDW 17.8(H) 11.0 - 15.0 % LAB HEMETOLOGY METHOD 05/24/2024 9:31 AM [facility] LAB Platelets 335 130 - 400 K/mcL LAB HEMETOLOGY METHOD 05/24/2024 9:31 AM [facility] LAB MPV 10.5 7.0 - 11.0 FL LAB HEMETOLOGY METHOD 05/24/2024 9:31 AM [facility] LAB NRBC 0.0 <1.0 % LAB HEMETOLOGY METHOD 05/24/2024 9:31 AM [facility] LAB NRBC Absolute 0.00 <0.10 K/mcL LAB HEMETOLOGY METHOD 05/24/2024 9:31 AM [facility] Neutrophils Relative 67.5 % LAB HEMETOLOGY METHOD 05/24/2024 9:31 AM [facility] Lymphocytes Relative 16.4 % LAB HEMETOLOGY METHOD 05/24/2024 9:31 AM [facility] Monocytes Relative 10.6 % LAB HEMETOLOGY METHOD 05/24/2024 9:31 AM [facility] Eosinophils Relative 4.5 % LAB HEMETOLOGY METHOD 05/24/2024 9:31 AM [facility] Basophils Relative 0.4 % LAB HEMETOLOGY METHOD 05/24/2024 9:31 AM [facility] Immature Granulocytes Relative 0.6 % LAB HEMETOLOGY METHOD 05/24/2024 9:31 AM [facility] Neutrophils Absolute 6.24 1.50 - 7.00 K/mcL LAB HEMETOLOGY METHOD 05/24/2024 9:31 AM [facility] Lymphocytes Absolute 1.52 1.00 - 5.00 K/mcL LAB HEMETOLOGY METHOD 05/24/2024 9:31 AM [facility] Monocytes Absolute 0.98 0.20 - 1.00 K/mcL LAB HEMETOLOGY METHOD 05/24/2024 9:31 AM [facility] LAB Eosinophils Absolute 0.42 0.00 - 0.50 K/[facility] LAB HEMETOLOGY METHOD 05/24/2024 9:31 AM EDT [facility] Basophils Absolute 0.04 0.00 - 0.20 K/[facility] LAB HEMETOLOGY METHOD 05/24/2024 9:31 AM EDT [facility] Immature Granulocytes Absolute 0.06(H) 0.00 - 0.03 K/[facility] LAB HEMETOLOGY METHOD 05/24/2024 9:31 AM EDT [facility] Blood Venous blood specimen / Unknown Venipuncture / Unknown 05/24/2024 5:56 AM EDT 05/24/2024 8:41 AM EDT us Laurence Florence MD LAB BLOOD ORDERABLES Final Resu lt [facility] [address] [place] [address], * (ABNORMAL) Basic metabolic panel (05/24/2024 5:56 AM EDT) Sodium 134 133 - 145 mmol/L LAB CHEMISTRY METHOD 05/24/2024 9:53 AM [facility] Potassium 4.8 3.5 - 5.5 mmol/L LAB CHEMISTRY METHOD 05/24/2024 9:53 AM [facility] Chloride 100 96 - 110 mmol/L LAB CHEMISTRY METHOD 05/24/2024 9:53 AM [facility] CO2 26 21 - 32 mmol/L LAB CHEMISTRY METHOD 05/24/2024 9:53 AM [facility] Anion Gap 8 3 - 11 LAB CHEMISTRY METHOD 05/24/2024 9:53 AM [facility] Glucose 131(H) 70 - 100 mg/dL LAB CHEMISTRY METHOD 05/24/2024 9:53 AM EDT [facility] BUN 67(H) 5 - 25 mg/dL LAB CHEMISTRY METHOD 05/24/2024 9:53 AM EDT [facility] Creatinine 7.92(H) 0.70 - 1.30 mg/dL LAB CHEMISTRY METHOD 05/24/2024 9:53 AM EDT [facility] eGFR 7(L) >=60 mL/min/1. 73m2 LAB CHEMISTRY METHOD 05/24/2024 9:53 AM EDT [facility] LAB Comment:Calculation based on the??Chronic Kidney Disease Epidemiology Collaboration (CKD-EPI) equation refit??without adjustment for race. BUN/Creatinine Ratio 8.5 LAB CHEMISTRY METHOD 05/24/2024 9:53 AM EDT [facility] Calcium 8.6 8.5 - 10.5 mg/dL LAB CHEMISTRY METHOD 05/24/2024 9:53 AM EDT [facility] Blood Venous blood specimen / Unknown Venipuncture / Unknown 05/24/2024 5:56 AM EDT 05/24/2024 8:41 AM EDT us Laurence Florence MD LAB BLOOD ORDERABLES Final Resu lt [facility] [address] [place] [address], documented in this encounter Visit Diagnoses Diagnosis Chronic combined systolic (congestive) and diastolic (congestive) heart failure Type 2 diabetes mellitus without complications End stage renal disease (CMS/HCC) End stage renal disease documented in this encounter Care Teams Trade Recruiter Relationship Specialty Start Date End Date Cass Turcios MD [address] [place] [address] [address] [place] [address] PCP - General Geriatric Medicine 04/02/24 documented as of this encounter
--- OUTSIDE RECORDS SUMMARY | 2024-06-11 09:10 | XMS_ITS | Encounter Summary ---
Author Organization [facility] Address [address] [place] [address] Phone Care Team Providers Care Director Advanced Name Role Phone Jade Lewis MD Primary Care Provider + [phone] Reason for Visit * Reason Comments Med Refill Encounter Details Date Type Department Care Team (Late st Contact Info) Description 07/23/2021 Refill [facility] [address] [place] [phone] Alejandro Santana MD [address] [place] [phone] Social History Tobacco Use Types Packs/Day Years [...] filedocumented in this encounter Care Teams Director Advanced Relationship Specialty Start Date End Date Jade Lewis MD [address] [place] [address] PCP - General Internal Medicine 04/25/22 documented as of this encounter
== END 2024-06-11 10:03 | disposition home or self-care (01) ==
PROVIDERS: PCP Nurse Practitioner; Visit Provider Orthopaedic Surgery
DX: I70.269 Atherosclerosis of native arteries of extremities with gangrene, unspecified extremity (principal); I50.43 Acute on chronic combined systolic (congestive) and diastolic (congestive) heart failure; N18.6 End stage renal disease; Z99.2 Dependence on renal dialysis; R20.0 Anesthesia of skin; R20.2 Paresthesia of skin; E11.9 Type 2 diabetes mellitus without complications
CPT/HCPCS: 99204

== ENCOUNTER → 2024-06-11 09:26 | Outpatient (BNV) | payer MEDICARE, MEDICAID, SELFPAY | PROVIDERS: Visit Provider Radiology Diagnostic Radiology | DX: M79.642 Pain in left hand (principal) | CPT/HCPCS: 73130 ==

== ENCOUNTER 2024-06-11 10:43 | Outpatient (REF) | payer MEDICARE, MEDICAID, SELFPAY ==
--- NOTE | ~2024-06-11 | XR_ITS ---
CLINICAL HISTORY: M79.642 - Pain in right hand 3 view right hand Comparison: None Findings: Bones intact. No dislocations. No significant arthritic change. No erosions. No radiopaque foreign body. 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 IMPRESSION: No acute abnormalities. 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 This document has been electronically signed by: Malcolm Madrid MD on 06/11/2024 14:32:56
--- OUTSIDE RECORDS SUMMARY | 2024-06-12 12:22 | XMS_ITS | Encounter Summary ---
Author Organization [facility], Address [address] [place] [address] Phone Care Team Providers Care Steam Service Inspector Name Role Phone Jade Lewis MD Primary Care Provider + [phone] Reason for Visit * Reason Comments Med Refill Encounter Details Date Type Department Care Team ([facility] st Contact Info) Description 06/25/2019 Refill [facility] [address] [place] [address] Mercedes Law MD Social History [...] on filedocumented in this encounter Care Teams Steam Service Inspector Relationship Specialty Start Date End Date Jade Lewis MD [address] [place], [place] [phone] PCP - General Internal Medicine 04/25/22 documented as of this encounter
--- OUTSIDE RECORDS SUMMARY | 2024-06-12 12:22 | XMS_ITS | Encounter Summary ---
Author Organization [facility] Address [address] [facility] [address] [place] [address] Phone Care Team Providers Care Steel Heater Name Role Phone Jade Lewis MD Primary Care Provider + [phone] Reason for Visit * Reason Onset Date Comments Med Refill 04/19/2022 Encounter Details Date Type Department Care Team (Late st Contact Info) Description 04/19/2022 Refill [facility] [address] [place] [phone] Loida Madsen Social History Tobacco Use Types [...] on filedocumented in this encounter Care Teams Steel Heater Relationship Specialty Start Date End Date Jade Lewis MD [address] [place] [address] PCP - General Internal Medicine 04/25/22 documented as of this encounter
--- OUTSIDE RECORDS SUMMARY | 2024-06-12 12:22 | XMS_ITS | Encounter Summary ---
Author Organization [facility], Address [address] [place] [address] Phone Care Team Providers Care Hydrate Control Tender Name Role Phone Jade Lewis MD Primary Care Provider + [phone] Reason for Visit * Reason Comments Med Refill Encounter Details Date Type Department Care Team (Late st Contact Info) Description 06/13/2023 Refill [facility] [address] [place] [phone] Malcolm Taylor MD [address] [place] [phone] Social History Tobacco Use Types Packs/Day Years [...] on filedocumented in this encounter Care Teams Hydrate Control Tender Relationship Specialty Start Date End Date Jade Lewis MD [address] [place] [address] PCP - General Internal Medicine 04/25/22 documented as of this encounter
--- OUTSIDE RECORDS SUMMARY | 2024-06-12 12:22 | XMS_ITS | Encounter Summary ---
Author Organization [facility], Address [address] [place] [address] Phone Care Team Providers Care Project Scheduler Name Role Phone Jade Lewis MD Primary Care Provider + [phone] Reason for Visit * Reason Comments Med Refill Encounter Details Date Type Department Care Team (Late st Contact Info) Description 10/27/2023 Refill [facility] [address] [place] [phone] Malcolm Taylor MD [address] [place] [address] [place] [address] Social History Tobacco Use Types Packs/Day Years [...] on filedocumented in this encounter Care Teams Project Scheduler Relationship Specialty Start Date End Date Jade Lewis MD [address] [place] [address] PCP - General Internal Medicine 04/25/22 documented as of this encounter
--- OUTSIDE RECORDS SUMMARY | 2024-06-12 12:22 | XMS_ITS | Encounter Summary ---
Author Organization [facility] Address [address] [place] [address] Care Team Providers Care Art Educator Name Role Phone Cass Turcios MD Primary Care Provider Encounter Details Date Type Department Care Team (Late st Contact Info) Description 06/06/[address] [facility] - Main Lab 299 [facility] [place] [address] Laurence Florence MD [address] [place] [address] Cellulitis of right lower limb; End stage [...] your loved ones. For example, director child or elderly care for an older [...] mmol/L LAB CHEMISTRY METHOD 06/06/2024 8:59 AM [facility] LAB Potassium 4.3 3.5 - 5.5 mmol/L LAB CHEMISTRY METHOD 06/06/2024 8:59 AM [facility] LAB Chloride 106 96 - 110 mmol/L LAB CHEMISTRY METHOD 06/06/2024 8:59 AM [facility] LAB CO2 27 21 - 32 mmol/L LAB CHEMISTRY METHOD 06/06/2024 8:59 AM [facility] LAB Anion Gap 6 3 - 11 LAB CHEMISTRY METHOD 06/06/2024 8:59 AM [facility] LAB Glucose 162(H) 70 - 100 mg/dL LAB CHEMISTRY METHOD 06/06/2024 8:59 AM [facility] LAB BUN 28(H) 5 - 25 mg/dL LAB CHEMISTRY METHOD 06/06/2024 8:59 AM [facility] LAB Creatinine 3.78(H) 0.70 - 1.30 mg/dL LAB CHEMISTRY METHOD 06/06/2024 8:59 AM [facility] LAB eGFR 17(L) >=60 mL/min/1. 73m2 LAB CHEMISTRY METHOD 06/06/2024 8:59 AM [facility] LAB Comment:Calculation based on the??Chronic Kidney Disease Epidemiology Collaboration (CKD-EPI) equation refit??without adjustment for race. BUN/Creatinine Ratio 7.4 LAB CHEMISTRY METHOD 06/06/2024 8:59 AM [facility] LAB Calcium 9.1 8.5 - 10.5 mg/dL LAB CHEMISTRY METHOD 06/06/2024 8:59 AM [facility] LAB Blood Venous blood specimen / Unknown Venipuncture / Unknown 06/06/2024 5:35 AM EDT 06/06/2024 8:10 AM EDT us Laurence Florence MD LAB BLOOD ORDERABLES Final Resu lt [facility] [address] [place] [address], [place] [phone] * (ABNORMAL) Complete blood count (06/06/2024 5:35 AM EDT) [facility] Signature WBC 9.3 4.8 - 10.8 K/mcL LAB HEMETOLOGY METHOD 06/06/2024 8:35 AM EDT [facility] RBC 3.20(L) 4.50 - 5.50 M/mcL LAB HEMETOLOGY METHOD 06/06/2024 8:35 AM EDT [facility] Hemoglobin 7.6(L) 13.5 - 17.5 g/dL LAB HEMETOLOGY METHOD 06/06/2024 8:35 AM EDT [facility] Hematocrit 26.2(L) 42.0 - 54.0 % LAB HEMETOLOGY METHOD 06/06/2024 8:35 AM EDT [facility] MCV 80.9 79.0 - 98.0 FL LAB HEMETOLOGY METHOD 06/06/2024 8:35 AM T [facility] MCH 23.5(L) 27.0 - 32.0 pcg LAB HEMETOLOGY METHOD 06/06/2024 8:35 AM EDT [facility] MCHC 29.0(L) 32.0 - 37.0 g/dL LAB HEMETOLOGY METHOD 06/06/2024 8:35 AM EDT [facility] RDW 16.8(H) 11.0 - 15.0 % LAB HEMETOLOGY METHOD 06/06/2024 8:35 AM EDT [facility] Platelets 264 130 - 400 K/mcL LAB HEMETOLOGY METHOD 06/06/2024 8:35 AM EDT [facility] MPV 12.3(H) 7.0 - 11.0 FL LAB HEMETOLOGY METHOD 06/06/2024 8:35 AM EDT [facility] NRBC 0.0 <1.0 % [facility] METHOD 06/06/2024 8:35 AM EDT [facility] NRBC Absolute 0.00 <0.10 K/mcL LAB HEMETOLOGY METHOD 06/06/2024 8:35 AM EDT [facility] Blood Venous blood specimen / Unknown Venipuncture / Unknown 06/06/2024 5:35 AM EDT 06/06/2024 8:10 AM EDT us Laurence Florence MD LAB BLOOD ORDERABLES Final Resu lt [facility] [address] [place] [address], documented in this encounter Visit Diagnoses Diagnosis Cellulitis of right lower limb End stage renal disease (CMS/HCC) End stage renal disease documented in this encounter Care Teams Art Educator Relationship Specialty Start Date End Date Cass Turcios MD [address] [place] [address] [address] [place] [address] PCP - General Geriatric Medicine 04/02/24 documented as of this encounter
--- OUTSIDE RECORDS SUMMARY | 2024-06-12 12:22 | XMS_ITS | Encounter Summary ---
Author Organization [facility] Address [address] [place] [address] Care Team Providers Care Engineering Technician Parking Name Role Phone Cass Turcios MD Primary Care Provider [phone] Encounter Details Date Type Department Care Team (Late st Contact Info) Description 05/31/2024 Lab Requisition [facility] - Main Lab 299 [facility] [place] [address] Laurence Florence MD [address] [place] [phone] End stage renal disease (CMS/HCC); Anemia, unspecified [...] care for your loved ones. For example, children teacher or elderly care for an older [...] K/mcL LAB HEMETOLOGY METHOD 05/31/2024 10:13 AM [facility] RBC 3.20(L) 4.50 - 5.50 M/mcL LAB HEMETOLOGY METHOD 05/31/2024 10:13 AM [facility] LAB Hemoglobin 7.7(L) 13.5 - 17.5 g/dL LAB HEMETOLOGY METHOD 05/31/2024 10:13 AM [facility] LAB Hematocrit 26.1(L) 42.0 - 54.0 % LAB HEMETOLOGY METHOD 05/31/2024 10:13 AM [facility] LAB MCV 81.8 79.0 - 98.0 FL LAB HEMETOLOGY METHOD 05/31/2024 10:13 AM [facility] LAB MCH 24.1(L) 27.0 - 32.0 pcg LAB HEMETOLOGY METHOD 05/31/2024 10:13 AM [facility] LAB MCHC 29.5(L) 32.0 - 37.0 g/dL LAB HEMETOLOGY METHOD 05/31/2024 10:13 AM [facility] LAB RDW 17.8(H) 11.0 - 15.0 % LAB HEMETOLOGY METHOD 05/31/2024 10:13 AM [facility] LAB Platelets 227 130 - 400 K/mcL LAB HEMETOLOGY METHOD 05/31/2024 10:13 AM [facility] LAB MPV 10.6 7.0 - 11.0 FL LAB HEMETOLOGY METHOD 05/31/2024 10:13 AM [facility] LAB NRBC 0.0 <1.0 % LAB HEMETOLOGY METHOD 05/31/2024 10:13 AM [facility] NRBC Absolute 0.00 <0.10 K/mcL LAB HEMETOLOGY METHOD 05/31/2024 10:13 AM [facility] Neutrophils Relative 69.5 % LAB HEMETOLOGY METHOD 05/31/2024 10:13 AM [facility] Lymphocytes Relative 19.2 % LAB HEMETOLOGY METHOD 05/31/2024 10:13 AM [facility] Monocytes Relative 8.4 % LAB HEMETOLOGY METHOD 05/31/2024 10:13 AM [facility] Eosinophils Relative 1.8 % LAB HEMETOLOGY METHOD 05/31/2024 10:13 AM [facility] Basophils Relative 0.5 % LAB HEMETOLOGY METHOD 05/31/2024 10:13 AM [facility] Immature Granulocytes Relative 0.6 % LAB HEMETOLOGY METHOD 05/31/2024 10:13 AM [facility] Neutrophils Absolute 7.60(H) 1.50 - 7.00 K/mcL LAB HEMETOLOGY METHOD 05/31/2024 10:13 AM [facility] Lymphocytes Absolute 2.10 1.00 - 5.00 K/mcL LAB HEMETOLOGY METHOD 05/31/2024 10:13 AM [facility] Monocytes Absolute 0.92 0.20 - 1.00 K/mcL LAB HEMETOLOGY METHOD 05/31/2024 10:13 AM [facility] Eosinophils Absolute 0.20 0.00 - 0.50 K/mcL LAB HEMETOLOGY METHOD 05/31/2024 10:13 AM [facility] Basophils Absolute 0.05 0.00 - 0.20 K/mcL LAB HEMETOLOGY METHOD 05/31/2024 10:13 AM [facility] Immature Granulocytes Absolute 0.07(H) 0.00 - 0.03 K/mcL LAB HEMETOLOGY METHOD 05/31/2024 10:13 AM [facility] Blood Venous blood specimen / Unknown Venipuncture / Unknown 05/31/2024 6:09 AM EDT 05/31/2024 9:24 AM EDT us Laurence Florence MD LAB BLOOD ORDERABLES Final Resu lt [facility] [address] [place] [address], [place] [phone] * (ABNORMAL) Basic metabolic panel (05/31/2024 6:09 AM EDT) Sodium 139 133 - 145 mmol/L LAB CHEMISTRY METHOD 05/31/2024 11:03 AM [facility] Potassium 4.6 3.5 - 5.5 mmol/L LAB CHEMISTRY METHOD 05/31/2024 11:03 AM [facility] Chloride 106 96 - 110 mmol/L LAB CHEMISTRY METHOD 05/31/2024 11:03 AM [facility] CO2 27 21 - 32 mmol/L LAB CHEMISTRY METHOD 05/31/2024 11:03 AM [facility] Anion Gap 6 3 - 11 LAB CHEMISTRY METHOD 05/31/2024 11:03 AM [facility] Glucose 24(LL) 70 - 100 mg/dL LAB CHEMISTRY METHOD 05/31/2024 11:03 AM [facility] BUN 52(H) 5 - 25 mg/dL LAB CHEMISTRY METHOD 05/31/2024 11:03 AM [facility] Creatinine 7.22(H) 0.70 - 1.30 mg/dL LAB CHEMISTRY METHOD 05/31/2024 11:03 AM EDT [facility] eGFR 8(L) >=60 mL/min/1. 73m2 LAB CHEMISTRY METHOD 05/31/2024 11:03 AM EDT [facility] Comment:Calculation based on the??Chronic Kidney Disease Epidemiology Collaboration (CKD-EPI) equation refit??without adjustment for race. BUN/Creatinine Ratio 7.2 LAB CHEMISTRY METHOD 05/31/2024 11:03 AM EDT [facility] Calcium 8.2(L) 8.5 - 10.5 mg/dL LAB CHEMISTRY METHOD 05/31/2024 11:03 AM EDT [facility] Blood Venous blood specimen / Unknown Venipuncture / Unknown 05/31/2024 6:09 AM EDT 05/31/2024 9:24 AM EDT us Laurence Florence MD LAB BLOOD ORDERABLES Final Resu lt [facility] [address] [place] [address], documented in this encounter Visit Diagnoses Diagnosis End stage renal disease (CMS/[facility]) End stage renal disease Anemia, unspecified documented in this encounter Care Teams Engineering Technician Parking Relationship Specialty Start Date End Date aCss Turcios MD [address] [place] [address] [address] [place] [address] PCP - General Geriatric Medicine 04/02/24 documented as of this encounter
--- OUTSIDE RECORDS SUMMARY | 2024-06-12 12:22 | XMS_ITS | Encounter Summary ---
Author Organization [facility] Address [address] [place] [address] Phone Care Team Providers Care Developer Advocate Name Role Phone Jade Lewis MD Primary Care Provider + [phone] Reason for Visit * Reason Comments Med Refill Encounter Details Date Type Department Care Team (Late st Contact Info) Description 07/23/2021 Refill [facility] [address] [place] [phone] Alejandro Santana MD [address] [place] [phone] Social History Tobacco Use Types Packs/Day Years [...] on filedocumented in this encounter Care Teams Developer Advocate Relationship Specialty Start Date End Date Jade Lewis MD [address] [place] [address] PCP - General Internal Medicine 04/25/22 documented as of this encounter
--- OUTSIDE RECORDS SUMMARY | 2024-06-12 12:22 | XMS_ITS | Encounter Summary ---
Author Organization [facility], Address [address] [place] [address] Phone Care Team Providers Care Ese Teacher Name Role Phone Jade Lewis MD Primary Care Provider + [phone] Reason for Visit * Reason Comments Med Refill Encounter Details Date Type Department Care Team ([facility] st Contact Info) Description 10/18/2023 Refill [facility] [address] [place] [phone] Malcolm Taylor MD [address] [place] [address] [place] [phone] Social History Tobacco Use Types Packs/Day Years [...] 10/19/2023 Unless otherwise specified, test(s) performed at: [facility], [address] [place] [address] TANDEM OPERATOR: Homero Garcia M.D. For any questions, please call customer service at FREQUENCY:OTHER Resulting Agency Comment Specimen source: Blood us Car Mcdonald MD LAB BLOOD ORDERABLES Final Re sult [facility] See order comments or contact performing lab Unknown, [place] documented in this encounter Visit Diagnoses Not on filedocumented in this encounter Care Teams Ese Teacher Relationship Specialty Start Date End Date Jade Lewis MD [address] [place] [address] PCP - General Internal Medicine 04/25/22 documented as of this encounter
--- OUTSIDE RECORDS SUMMARY | 2024-06-12 12:22 | XMS_ITS | Encounter Summary ---
Author Organization [facility] Address [address] [place] [address] Care Team Providers Care Corporate Operations Compliance Manager Name Role Phone Cass Turcios MD Primary Care Provider [phone] Encounter Details Date Type Department Care Team (Late st Contact Info) Description 04/02/2024 Lab Requisition [facility] - Main Lab [address] [facility] [place] [address] Cass Turcios MD [address] [place] [address] End stage renal disease (CMS/HCC) Social History [...] for your loved ones. For example, children's service supervisor or elderly care for an older adult? [...] mmol/L LAB CHEMISTRY METHOD 04/02/2024 10:35 AM [facility] Potassium 5.6(H) 3.5 - 5.5 mmol/L LAB CHEMISTRY METHOD 04/02/2024 10:35 AM [facility] Chloride 95(L) 96 - 110 mmol/L LAB CHEMISTRY METHOD 04/02/2024 10:35 AM [facility] CO2 32 21 - 32 mmol/L LAB CHEMISTRY METHOD 04/02/2024 10:35 AM [facility] Anion Gap 8 3 - 11 LAB CHEMISTRY METHOD 04/02/2024 10:35 AM [facility] Glucose 32(LL) 70 - 100 mg/dL LAB CHEMISTRY METHOD 04/02/2024 10:35 AM [facility] BUN 50(H) 5 - 25 mg/dL LAB CHEMISTRY METHOD 04/02/2024 10:35 AM [facility] Creatinine 7.72(H) 0.70 - 1.30 mg/dL LAB CHEMISTRY METHOD 04/02/2024 10:35 AM [facility] eGFR 7(L) >=60 mL/min/1. 73m2 LAB CHEMISTRY METHOD 04/02/2024 10:35 AM [facility] Comment:Calculation based on the??Chronic Kidney Disease Epidemiology Collaboration (CKD-EPI) equation refit??without adjustment for race. BUN/Creatinine Ratio 6.5 LAB CHEMISTRY METHOD 04/02/2024 10:35 AM [facility] Calcium 8.3(L) 8.5 - 10.5 mg/dL LAB CHEMISTRY METHOD 04/02/2024 10:35 AM [facility] Blood Venous blood specimen / Unknown Venipuncture / Unknown 04/02/2024 5:24 AM EST 04/02/2024 8:48 AM EST us Cass Turcios MD LAB BLOOD ORDERABLES Final Resul t [facility] [address] [place] [address], * (ABNORMAL) Complete blood count (04/02/2024 5:24 AM EST) WBC 26.2(H) 4.8 - 10.8 K/mcL LAB HEMETOLOGY METHOD 04/02/2024 9:47 AM [facility] RBC 4.10(L) 4.50 - 5.50 M/mcL LAB HEMETOLOGY METHOD 04/02/2024 9:47 AM [facility] Hemoglobin 9.4(L) 13.5 - 17.5 g/dL LAB HEMETOLOGY METHOD 04/02/2024 9:47 AM [facility] Hematocrit 31.2(L) 42.0 - 54.0 % LAB HEMETOLOGY METHOD 04/02/2024 9:47 AM [facility] MCV 76.1(L) 79.0 - 98.0 FL LAB HEMETOLOGY METHOD 04/02/2024 9:47 AM [facility] MCH 22.9(L) 27.0 - 32.0 pcg LAB HEMETOLOGY METHOD 04/02/2024 9:47 AM [facility] MCHC 30.1(L) 32.0 - 37.0 g/dL LAB HEMETOLOGY METHOD 04/02/2024 9:47 AM [facility] RDW 17.1(H) 11.0 - 15.0 % LAB HEMETOLOGY METHOD 04/02/2024 9:47 AM [facility] Platelets 349 130 - 400 K/mcL LAB HEMETOLOGY METHOD 04/02/2024 9:47 AM [facility] MPV 11.4(H) 7.0 - 11.0 FL LAB HEMETOLOGY METHOD 04/02/2024 9:47 AM EST [facility] NRBC 0.0 <1.0 % LAB HEMETOLOGY METHOD 04/02/2024 9:47 AM EST [facility] NRBC Absolute 0.00 <0.10 K/mcL LAB HEMETOLOGY METHOD 04/02/2024 9:47 AM EST [facility] Blood Venous blood specimen / Unknown Venipuncture / Unknown 04/02/2024 5:24 AM EST 04/02/2024 8:48 AM EST us Cass Turcios MD LAB BLOOD ORDERABLES Final Resul t [facility] [address] [place] [address], documented in this encounter Visit Diagnoses Diagnosis End stage renal disease (CMS/[facility]) End stage renal disease documented in this encounter Care Teams Corporate Operations Compliance Manager Relationship Specialty Start Date End Date Cass Turcios MD [address] [place] [address] [address] [place] [address] PCP - General Geriatric Medicine 04/02/24 documented as of this encounter
--- OUTSIDE RECORDS SUMMARY | 2024-06-12 12:22 | XMS_ITS | Encounter Summary ---
Author Organization [facility], Address [address] [place] [address] Phone Care Team Providers Care Gang Drill Operator Name Role Phone Jade Lewis MD Primary Care Provider [phone] Reason for Visit * Reason Comments Med Refill Encounter Details Date Type Department Care Team (Late st Contact Info) Description 05/22/2023 Refill [facility] [address] [place] [id number] Car Mcdonald MD [facility] [address] [place] [place] [address] Social History Tobacco Use Types Packs/Day Years [...] on filedocumented in this encounter Care Teams Gang Drill Operator Relationship Specialty Start Date End Date Jade Lewis MD [address] [place] [id number] PCP - General Internal Medicine 04/25/22 documented as of this encounter
--- OUTSIDE RECORDS SUMMARY | 2024-06-12 12:22 | XMS_ITS | Encounter Summary ---
Author Organization [facility] Address [address] [place] [address] Care Team Providers Care Accounts Receivable Administrator Name Role Phone Cass Turcios MD Primary Care Provider [phone] Encounter Details Date Type Department Care Team (Late st Contact Info) Description 03/25/2024 Lab Requisition [facility] - Main Lab [address] [facility] [place] [address] Cass Turcios MD [address] [place] [address] Anemia, unspecified; Chronic diastolic (congestive) heart failure [...] for your loved ones. For example, attendant child activity or elderly care for an older adult? [...] mmol/L LAB CHEMISTRY METHOD 03/25/2024 2:44 PM [facility] Potassium 7.3(HH) 3.5 - 5.5 mmol/L LAB CHEMISTRY METHOD 03/25/2024 2:44 PM [facility] Chloride 101 96 - 110 mmol/L LAB CHEMISTRY METHOD 03/25/2024 2:44 PM [facility] CO2 15(L) 21 - 32 mmol/L LAB CHEMISTRY METHOD 03/25/2024 2:44 PM [facility] Anion Gap 17(H) 3 - 11 LAB CHEMISTRY METHOD 03/25/2024 2:44 PM [facility] Glucose 62(L) 70 - 100 mg/dL LAB CHEMISTRY METHOD 03/25/2024 2:44 PM [facility] BUN 112(H) 5 - 25 mg/dL LAB CHEMISTRY METHOD 03/25/2024 2:44 PM [facility] Creatinine 12.80(HH) 0.70 - 1.30 mg/dL LAB CHEMISTRY METHOD 03/25/2024 2:44 PM [facility] eGFR 4(L) >=60 mL/min/1 .73m2 LAB CHEMISTRY METHOD 03/25/2024 2:44 PM [facility] Comment:Calculation based on the??Chronic Kidney Disease Epidemiology Collaboration (CKD-EPI) equation refit??without adjustment for race. BUN/Creatinine Ratio 8.8 LAB CHEMISTRY METHOD 03/25/2024 2:44 PM [facility] Calcium 8.8 8.5 - 10.5 mg/dL LAB CHEMISTRY METHOD 03/25/2024 2:44 PM [facility] AST (SGOT) 21 10 - 42 unit/L LAB CHEMISTRY METHOD 03/25/2024 2:44 PM [facility] ALT (SGPT) 9(L) 10 - 60 unit/L LAB CHEMISTRY METHOD 03/25/2024 2:44 PM [facility] Alkaline Phosphatase 172(H) 42 - 121 unit/L LAB CHEMISTRY METHOD 03/25/2024 2:44 PM [facility] Total Protein 6.9 6.0 - 8.0 g/dL LAB CHEMISTRY METHOD 03/25/2024 2:44 PM [facility] Albumin 2.7(L) 3.2 - 5.0 g/dL LAB CHEMISTRY METHOD 03/25/2024 2:44 PM [facility] Total Bilirubin 0.4 0.0 - 1.4 mg/dL LAB CHEMISTRY METHOD 03/25/2024 2:44 PM [facility] Blood Venous blood specimen / Unknown Venipuncture / Unknown 03/25/2024 5:09 AM EST 03/25/2024 11:52 AM EST us Cass Turcios MD LAB BLOOD ORDERABLES Final Resul t [facility] [address] [place] [address], * (ABNORMAL) Complete blood count (03/25/2024 5:09 AM EST) WBC 14.1(H) 4.8 - 10.8 K/mcL LAB HEMETOLOGY METHOD 03/25/2024 2:27 PM [facility] RBC 4.60 4.50 - 5.50 M/mcL LAB HEMETOLOGY METHOD 03/25/2024 2:27 PM [facility] Hemoglobin 10.5(L) 13.5 - 17.5 g/dL LAB HEMETOLOGY METHOD 03/25/2024 2:27 PM [facility] Hematocrit 35.9(L) 42.0 - 54.0 % LAB HEMETOLOGY METHOD 03/25/2024 2:27 PM [facility] MCV 77.7(L) 79.0 - 98.0 FL LAB HEMETOLOGY METHOD 03/25/2024 2:27 PM [facility] MCH 22.7(L) 27.0 - 32.0 pcg LAB HEMETOLOGY METHOD 03/25/2024 2:27 PM [facility] MCHC 29.2(L) 32.0 - 37.0 g/dL LAB HEMETOLOGY METHOD 03/25/2024 2:27 PM [facility] RDW 17.5(H) 11.0 - 15.0 % LAB HEMETOLOGY METHOD 03/25/2024 2:27 PM [facility] Platelets 254 130 - 400 K/mcL LAB HEMETOLOGY METHOD 03/25/2024 2:27 PM [facility] MPV LAB HEMETOLOGY METHOD 03/25/2024 2:27 PM [facility] Comment:Not Measured NRBC 0.0 <1.0 % LAB HEMETOLOGY METHOD 03/25/2024 2:27 PM [facility] NRBC Absolute 0.00 <0.10 K/mcL LAB HEMETOLOGY METHOD 03/25/2024 2:27 PM [facility] Blood Venous blood specimen / Unknown Venipuncture / Unknown 03/25/2024 5:09 AM EST 03/25/2024 11:52 AM EST us Cass Turcios MD LAB BLOOD ORDERABLES Final Resul t [facility] [address] [place] [address], documented in this encounter Visit Diagnoses Diagnosis Anemia, unspecified Chronic diastolic (congestive) heart failure Other pericardial effusion (noninflammatory) End stage renal disease (CMS/HCC) End stage renal disease documented in this encounter Additional Health Concerns Infection Onset Date Last Indicated Resolved Time Respiratory Rule-Out 03/25/2024 03/25/2024 025 8:14 PM EST documented as of this encounter Care Teams Accounts Receivable Administrator Relationship Specialty Start Date End Date Cass Turcios MD [address] [facility] [address] [place] [address] PCP - General Geriatric Medicine 04/02/24 documented as of this encounter
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
--- OUTSIDE RECORDS SUMMARY | 2024-06-12 12:22 | XMS_ITS | Clinical Summary ---
Author Organization [facility] Address [address] [place] [address] [address] [place] [address] Care Team Providers Care Patient Services Clerk Name Role Phone Unavailable Primary Care [...]
--- OUTSIDE RECORDS SUMMARY | 2024-06-12 12:22 | XMS_ITS | Clinical Summary ---
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 Name Role Phone Cass Turcios MD Primary Care Provider [phone] Allergies No known active allergies Medications Ventolin [...] Department Care Team Description 06/06/2024 Lab Requisition [facility] [address] [place] [address] Laurence Florence MD Cellulitis of right lower limb; End stage renal disease ([facility]/HCC) 05/31/2024 Lab Requisition [facility] [address] [place] [address] Laurence Florence MD End stage renal disease ([facility]); Anemia, unspecified 05/30/2024 Lab Requisition [facility] [address] [place] [address] Laurence Florence MD Chronic respiratory failure with hypoxia ([facility]); Encounter for orthopedic aftercare following surgical amputation; Encounter for surgical aftercare following surgery on the circulatory system; Peripheral vascular disease, unspecified ([facility]) 05/30/2024 Lab Requisition [facility] [address] [place] [phone] Laurence Florence MD Chronic respiratory failure with hypoxia ([facility]/HCC); Encounter for orthopedic aftercare following surgical amputation; Encounter for surgical aftercare following surgery on the circulatory system; Peripheral vascular disease, unspecified ([facility]/HCC) 05/28/2024 Lab Requisition [facility] [address] [place] [phone] Laurence Florence MD Anemia, unspecified; End stage renal disease ([facility]); Unspecified asthma, uncomplicated 05/24/2024 Lab Requisition [facility] [address] [place] [phone] Laurence Florence MD Chronic combined systolic (congestive) and diastolic (congestive) heart failure ([facility]/HCC); Type 2 diabetes mellitus without complications ([facility]); End stage renal disease ([facility]/HCC) 05/21/2024 Lab Requisition [facility] [address] [place] [phone] Laurence Florence MD Chronic combined systolic (congestive) and diastolic (congestive) heart failure ([facility]/HCC); End stage renal disease ([facility]/HCC) 05/20/2024 Lab Requisition [facility] [address] [place] [phone] Laurence Florence MD Elevated white blood cell count, unspecified 05/18/2024 Lab Requisition [facility] [address] [place] [address] Elsy Christina PA Unspecified systolic (congestive) heart failure ([facility]/HCC); Type 2 diabetes mellitus without complications ([facility]/HCC); End stage renal disease ([facility]/HCC) 05/17/2024 Lab Requisition [facility] [address] [place] [phone] Laurence Florence MD Type 2 diabetes mellitus without complications ([facility]/HCC); End stage renal disease ([facility]) 04/02/2024 Lab Requisition [facility] [address] [place] [address] Cass Turcios MD End stage renal disease ([facility]) 03/25/2024 7:29 AM EST - 03/27/2024 6:55 PM EST Hospital Encounter [facility] [address] [place] [phone] Noman Conteh MD Bukalo, Nermina, MD Japaridze, Anna, MD Acute kidney injury superimposed on chronic kidney disease ([facility]) (Primary Dx); Hyperkalemia; Urinary tract infection without hematuria, site unspecified Discharge Disposition: [facility] 03/25/2024 Lab Requisition [facility] [address] [place] [phone] Cass Turcios MD Anemia, unspecified; Chronic diastolic (congestive) heart failure ([facility]); Other pericardial effusion (noninflammatory); End stage renal disease ([facility]) from Last 3 Months Surgical History Surgery Date Site/Laterality Comments TOE AMPUTATION IR DIALYSIS CATH INSERT VASCULAR ACCESS Medical History Medical History Date Comments ESRD (end stage renal disease) on dialysis ([facility]/ [facility]) MWF Hypertension Hyperlipidemia Gouty arthritis Diabetes mellitus ([facility]) GERD (gastroesophageal reflux disease) COPD (chronic obstructive pulmonary disease) ([facility]) Social History Tobacco Use [...] your loved ones. For example, child care group leader or elderly care for an older [...] right lower limb End stage renal disease ([facility]/HCC) COMPLETE BLOOD COUNT Routine 06/06/2024 5:35 AM EDT Cellulitis of right lower limb End stage renal disease ([facility]/HCC) CBC WITH AUTO DIFFERENTIAL Routine 05/31/2024 6:09 AM EDT End stage renal disease ([facility]) Anemia, unspecified BASIC METABOLIC PANEL Routine 05/31/2024 6:09 AM EDT End stage renal disease ([facility]) Anemia, unspecified CBC AND DIFFERENTIAL Routine 05/31/2024 6:09 AM EDT End stage renal disease ([facility]) Anemia, unspecified CULTURE BLOOD Routine 05/30/2024 7:41 AM EDT Chronic respiratory failure with hypoxia Encounter for orthopedic aftercare following surgical amputation Encounter for surgical aftercare following surgery on the circulatory system Peripheral vascular disease, unspecified ([facility]) LACTATE Routine 05/30/2024 7:36 AM [...] K/mcL LAB HEMETOLOGY METHOD 06/06/2024 8:35 AM [facility] RBC 3.20(L) 4.50 - 5.50 M/mcL LAB HEMETOLOGY METHOD 06/06/2024 8:35 AM [facility] Hemoglobin 7.6(L) 13.5 - 17.5 g/dL LAB HEMETOLOGY METHOD 06/06/2024 8:35 AM [facility] Hematocrit 26.2(L) 42.0 - 54.0 % LAB HEMETOLOGY METHOD 06/06/2024 8:35 AM [facility] MCV 80.9 79.0 - 98.0 FL LAB HEMETOLOGY METHOD 06/06/2024 8:35 AM [facility] MCH 23.5(L) 27.0 - 32.0 pcg LAB HEMETOLOGY METHOD 06/06/2024 8:35 AM [facility] MCHC 29.0(L) 32.0 - 37.0 g/dL LAB HEMETOLOGY METHOD 06/06/2024 8:35 AM [facility] RDW 16.8(H) 11.0 - 15.0 % LAB HEMETOLOGY METHOD 06/06/2024 8:35 AM [facility] Platelets 264 130 - 400 K/mcL LAB HEMETOLOGY METHOD 06/06/2024 8:35 AM [facility] MPV 12.3(H) 7.0 - 11.0 FL LAB HEMETOLOGY METHOD 06/06/2024 8:35 AM EDT [facility] NRBC 0.0 <1.0 % [facility] 06/06/2024 8:35 AM EDT [facility] NRBC Absolute 0.00 <0.10 K/mcL LAB [facility] 06/06/2024 8:35 AM EDT [facility] Blood Venous blood specimen / Unknown Venipuncture / Unknown 06/06/2024 5:35 AM EDT 06/06/2024 8:10 AM EDT us Laurence Florence MD LAB BLOOD ORDERABLES Final Resu lt [facility] [address] [place] [address], [place] [phone] * (ABNORMAL) Basic metabolic panel (06/06/2024 5:35 AM EDT) Only the most recent of11 resultswithin the time period is included. Sodium 139 133 - 145 mmol/L LAB CHEMISTRY METHOD 06/06/2024 8:59 AM [facility] Potassium 4.3 3.5 - 5.5 mmol/L LAB CHEMISTRY METHOD 06/06/2024 8:59 AM [facility] Chloride 106 96 - 110 mmol/L LAB CHEMISTRY METHOD 06/06/2024 8:59 AM [facility] CO2 27 21 - 32 mmol/L LAB CHEMISTRY METHOD 06/06/2024 8:59 AM [facility] Anion Gap 6 3 - 11 LAB CHEMISTRY METHOD 06/06/2024 8:59 AM [facility] Glucose 162(H) 70 - 100 mg/dL LAB CHEMISTRY METHOD 06/06/2024 8:59 AM T [facility] BUN 28(H) 5 - 25 mg/dL LAB CHEMISTRY METHOD 06/06/2024 8:59 AM EDT [facility] Creatinine 3.78(H) 0.70 - 1.30 mg/dL LAB CHEMISTRY METHOD 06/06/2024 8:59 AM EDT [facility] eGFR 17(L) >=60 mL/min/1. 73m2 LAB CHEMISTRY METHOD 06/06/2024 8:59 AM EDT [facility] Comment:Calculation based on the??Chronic Kidney Disease Epidemiology Collaboration (CKD-EPI) equation refit??without adjustment for race. BUN/Creatinine Ratio 7.4 LAB CHEMISTRY METHOD 06/06/2024 8:59 AM EDT [facility] Calcium 9.1 8.5 - 10.5 mg/dL LAB CHEMISTRY METHOD 06/06/2024 8:59 AM EDT [facility] Blood Venous blood specimen / Unknown Venipuncture / Unknown 06/06/2024 5:35 AM EDT 06/06/2024 8:10 AM EDT us Laurence Florence MD LAB BLOOD ORDERABLES Final Resu lt [facility] [address] [place] [address], * (ABNORMAL) CBC auto differential (05/31/2024 6:09 AM EDT) Only the most recent of6 resultswithin the time period is included. WBC 10.9(H) 4.8 - 10.8 K/mcL LAB HEMETOLOGY METHOD 05/31/2024 10:13 AM EDT [facility] RBC 3.20(L) 4.50 - 5.50 M/mcL LAB HEMETOLOGY METHOD 05/31/2024 10:13 AM EDT [facility] Hemoglobin 7.7(L) 13.5 - 17.5 g/dL LAB HEMETOLOGY METHOD 05/31/2024 10:13 AM [facility] Hematocrit 26.1(L) 42.0 - 54.0 % LAB HEMETOLOGY METHOD 05/31/2024 10:13 AM [facility] MCV 81.8 79.0 - 98.0 FL LAB HEMETOLOGY METHOD 05/31/2024 10:13 AM [facility] MCH 24.1(L) 27.0 - 32.0 pcg LAB HEMETOLOGY METHOD 05/31/2024 10:13 AM [facility] MCHC 29.5(L) 32.0 - 37.0 g/dL LAB HEMETOLOGY METHOD 05/31/2024 10:13 AM [facility] RDW 17.8(H) 11.0 - 15.0 % LAB HEMETOLOGY METHOD 05/31/2024 10:13 AM [facility] Platelets 227 130 - 400 K/mcL LAB HEMETOLOGY METHOD 05/31/2024 10:13 AM [facility] MPV 10.6 7.0 - 11.0 FL LAB HEMETOLOGY METHOD 05/31/2024 10:13 AM [facility] NRBC 0.0 <1.0 % LAB HEMETOLOGY METHOD 05/31/2024 10:13 AM [facility] NRBC Absolute 0.00 <0.10 K/mcL LAB HEMETOLOGY METHOD 05/31/2024 10:13 AM [facility] Neutrophils Relative 69.5 % LAB HEMETOLOGY METHOD 05/31/2024 10:13 AM [facility] Lymphocytes Relative 19.2 % LAB HEMETOLOGY METHOD 05/31/2024 10:13 AM [facility] Monocytes Relative 8.4 % LAB HEMETOLOGY METHOD 05/31/2024 10:13 AM EDT [facility] Eosinophils Relative 1.8 % LAB HEMETOLOGY METHOD 05/31/2024 10:13 AM EDT [facility] Basophils Relative 0.5 % LAB HEMETOLOGY METHOD 05/31/2024 10:13 AM [facility] Immature Granulocytes Relative 0.6 % LAB HEMETOLOGY METHOD 05/31/2024 10:13 AM EDT [facility] Neutrophils Absolute 7.60(H) 1.50 - 7.00 K/mcL LAB HEMETOLOGY METHOD 05/31/2024 10:13 AM EDT [facility] Lymphocytes Absolute 2.10 1.00 - 5.00 K/mcL LAB HEMETOLOGY METHOD 05/31/2024 10:13 AM [facility] Monocytes Absolute 0.92 0.20 - 1.00 K/mcL LAB HEMETOLOGY METHOD 05/31/2024 10:13 AM T [facility] Eosinophils Absolute 0.20 0.00 - 0.50 K/mcL LAB HEMETOLOGY METHOD 05/31/2024 10:13 AM T [facility] Basophils Absolute 0.05 0.00 - 0.20 K/mcL LAB HEMETOLOGY METHOD 05/31/2024 10:13 AM T [facility] Immature Granulocytes Absolute 0.07(H) 0.00 - 0.03 K/mcL LAB HEMETOLOGY METHOD 05/31/2024 10:13 AM T [facility] Blood Venous blood specimen / Unknown Venipuncture / Unknown 05/31/2024 6:09 AM EDT 05/31/2024 9:24 AM EDT us Laurence Florence MD LAB BLOOD ORDERABLES Final Resu lt [facility] [address] [place] [address], [place] [phone] * Culture blood (05/30/2024 7:41 AM EDT) Only the most recent of3 resultswithin the time period is included. Culture, Blood No growth at 5 days LAB MICROBIOLOGY METHOD 06/04/2024 9:01 AM EDT [facility] Blood Venipuncture / Unknown 05/30/2024 7:41 AM EDT 05/30/2024 8:14 AM EDT us Laurence Florence MD LAB MICROBIOLOGY - GENERAL ORDE RABLES Final Result Performing Organization Address [facility]/ZIP Co de Phone Number [facility] [address] [place] [address], [place] [phone] * (ABNORMAL) Sedimentation rate (05/30/2024 7:36 AM EDT) [facility] Sed Rate >130(H) 0 - 20 mm/hr LAB HEMETOLOGY METHOD 05/30/2024 8:57 AM EDT [facility] Blood Venous blood specimen / Unknown Venipuncture / Unknown 05/30/2024 7:36 AM EDT 05/30/2024 8:11 AM EDT Narrative [facility] - 05/30/2024 8:57 AM EDT Rechecked. us Laurence Florence MD LAB BLOOD ORDERABLES Final Resu lt [facility] [address] [place] [address], [place] [phone] * (ABNORMAL) C-reactive protein (05/30/2024 7:36 AM EDT) [facility] C-Reactive Protein 11.60(H) <=0.50 mg/dL LAB CHEMISTRY METHOD 05/30/2024 8:51 AM EDT [facility] Blood Venous blood specimen / Unknown Venipuncture / Unknown 05/30/2024 7:36 AM EDT 05/30/2024 8:11 AM EDT us Laurence Florence MD LAB BLOOD ORDERABLES Final Resu lt Performing Organization Address [facility]/ZIP Co de Phone Number [facility] [address] [place] [address], [place] [phone] * Lactate (05/30/2024 7:36 AM EDT) Lactate 0.6 0.4 - 2.0 mmol/L LAB CHEMISTRY METHOD 05/30/2024 8:47 AM EDT [facility] Blood Venous blood specimen / Unknown Venipuncture / Unknown 05/30/2024 7:36 AM EDT 05/30/2024 8:11 AM EDT us Laurence Florence MD LAB BLOOD ORDERABLES Final Resu lt Performing Organization Address [facility] Co de Phone Number [facility] [address] [place] [address], [place] [phone] * (ABNORMAL) Comprehensive metabolic panel (05/30/2024 7:36 AM EDT) Only the most recent of4 resultswithin the time period is included. Sodium 140 133 - 145 mmol/L LAB CHEMISTRY METHOD 05/30/2024 9:08 AM EDT [facility] Potassium 4.2 3.5 - 5.5 mmol/L LAB CHEMISTRY METHOD 05/30/2024 9:08 AM EDT [facility] Chloride 104 96 - 110 mmol/L LAB CHEMISTRY METHOD 05/30/2024 9:08 AM EDT [facility] CO2 28 21 - 32 mmol/L LAB CHEMISTRY METHOD 05/30/2024 9:08 AM EDT [facility] Anion Gap 8 3 - 11 LAB CHEMISTRY METHOD 05/30/2024 9:08 AM [facility] Glucose 77 70 - 100 mg/dL LAB CHEMISTRY METHOD 05/30/2024 9:08 AM [facility] BUN 35(H) 5 - 25 mg/dL LAB CHEMISTRY METHOD 05/30/2024 9:08 AM [facility] Creatinine 5.30(H) 0.70 - 1.30 mg/dL LAB CHEMISTRY METHOD 05/30/2024 9:08 AM [facility] eGFR 11(L) >=60 mL/min/1. 73m2 LAB CHEMISTRY METHOD 05/30/2024 9:08 AM [facility] Comment:Calculation based on the??Chronic Kidney Disease Epidemiology Collaboration (CKD-EPI) equation refit??without adjustment for race. BUN/Creatinine Ratio 6.6 LAB CHEMISTRY METHOD 05/30/2024 9:08 AM [facility] Calcium 9.0 8.5 - 10.5 mg/dL LAB CHEMISTRY METHOD 05/30/2024 9:08 AM [facility] AST (SGOT) 10 10 - 42 unit/L LAB CHEMISTRY METHOD 05/30/2024 9:08 AM [facility] ALT (SGPT) 13 10 - 60 unit/L LAB CHEMISTRY METHOD 05/30/2024 9:08 AM [facility] Alkaline Phosphatase 141(H) 42 - 121 unit/L LAB CHEMISTRY METHOD 05/30/2024 9:08 AM [facility] Total Protein 6.3 6.0 - 8.0 g/dL LAB CHEMISTRY METHOD 05/30/2024 9:08 AM [facility] Albumin 2.5(L) 3.2 - 5.0 g/dL LAB CHEMISTRY METHOD 05/30/2024 9:08 AM [facility] Total Bilirubin 0.5 0.0 - 1.4 mg/dL LAB CHEMISTRY METHOD 05/30/2024 9:08 AM EDT [facility] Blood Venous blood specimen / Unknown Venipuncture / Unknown 05/30/2024 7:36 AM EDT 05/30/2024 8:11 AM EDT us Laurence Florence MD LAB BLOOD ORDERABLES Final Resu lt Performing Organization Address [facility]/ZIP Co de Phone Number [facility] [address] [place] [address], [place] [phone] * (ABNORMAL) Magnesium (05/29/2024 5:09 AM EDT) Only the most recent of3 resultswithin the time period is included. Pathologist [facility] [place] Magnesium 1.8(L) 1.9 - 2.6 mg/dL LAB CHEMISTRY METHOD 05/29/2024 9:20 AM EDT [facility] Blood Venous blood specimen / Unknown Venipuncture / Unknown 05/29/2024 5:09 AM EDT 05/29/2024 8:42 AM EDT us Laurence Florence MD LAB BLOOD ORDERABLES Final Resu lt Performing Organization Address [facility] de Phone Number [facility] [address] [place] [address], [place] [phone] * (ABNORMAL) Renal function panel (05/29/2024 5:09 AM EDT) Pathologist [facility] [place] Sodium 135 133 - 145 mmol/L LAB CHEMISTRY METHOD 05/29/2024 10:03 AM EDT [facility] Potassium 4.7 3.5 - 5.5 mmol/L LAB CHEMISTRY METHOD 05/29/2024 10:03 AM EDT [facility] Chloride 99 96 - 110 mmol/L LAB CHEMISTRY METHOD 05/29/2024 10:03 AM EDT [facility] CO2 27 21 - [...] MD LAB BLOOD ORDERABLES Final Resu lt [facility] [address] [place] [address], [place] [phone] * (ABNORMAL) Hemoglobin A1c (05/18/2024 7:20 AM EDT) Only the most recent of2 resultswithin the time period is included. [facility] Hemoglobin A1C 7.2(H) <6.5 % LAB CHEMISTRY METHOD 05/19/2024 12:06 PM EDT [facility] Mean Bld Glu Estim. 160 mg/dL LAB CHEMISTRY METHOD 05/19/2024 12:06 PM EDT [facility] Blood Venous blood specimen / Unknown Venipuncture / Unknown 05/18/2024 7:20 AM EDT 05/18/2024 9:58 AM EDT us Elsy MONTERO LAB BLOOD ORDERABLES Final Re sult Performing Organization Address City/[facility]/ZIP Co de Phone Number [facility] [address] [place] [address], * (ABNORMAL) POCT Glucose, blood (03/27/2024 4:55 PM EST) Only the most recent of10 resultswithin the time period is included. [facility] Glucose POCT 276(H) 70 - 100 mg/dL 03/27/2024 4:56 PM EST [facility] Blood Capillary blood specimen / Unknown 03/27/2024 4:55 PM EST 03/27/2024 4:57 PM EST us Marion Hernandez MD LAB POINT OF CARE TE ST DOCKED DEVICE UNSOLICITED RESULTS Final Result Performing Organization Address City/[facility]/ZIP Co de Phone Number [facility] [address] [place] [address], * Lavender tube (03/26/2024 6:50 AM EST) [facility] Extra Tube Hold for add-ons. 03/26/2024 9:01 AM EST [facility] Comment:Auto resulted. Blood Venous blood specimen / Unknown 03/26/2024 6:50 AM EST 03/26/2024 7:01 AM EST us Marion Hernandez MD LAB BLOOD ORDERABLES Final Res ult [facility] [address] [place] [address], * Respiratory virus panel molecular study (03/25/2024 [...] LAB MICROBIOLOGY METHOD 03/25/2024 8:14 PM EST [facility] RSV PCR Not Detected Not Detected LAB MICROBIOLOGY METHOD 03/25/2024 8:14 PM EST [facility] Human Metapneumovirus A and B Not Detected Not Detected LAB MICROBIOLOGY METHOD 03/25/2024 8:14 PM EST [facility] Rhinovirus/Entero virus Not Detected Not Detected LAB MICROBIOLOGY METHOD 03/25/2024 8:14 PM EST [facility] Bordetella pertussis Not Detected Not Detected LAB MICROBIOLOGY METHOD 03/25/2024 8:14 PM EST [facility] Bordetella parapertussis Not Detected Not Detected LAB MICROBIOLOGY METHOD 03/25/2024 8:14 PM EST [facility] Mycoplasma pneumo by PCR Not Detected Not Detected LAB MICROBIOLOGY METHOD 03/25/2024 8:14 PM EST [facility] Chlamydia pneumoniae Not Detected Not Detected LAB MICROBIOLOGY METHOD 03/25/2024 8:14 PM EST [facility] SARS COV-2 Not Detected Not Detected LAB MICROBIOLOGY METHOD 03/25/2024 8:14 PM [facility] Swab Both anterior nares / Unknown Non-blood Collection / Unknown 03/25/2024 6:49 PM EST 03/25/2024 6:59 PM EST [facility] - 03/25/2024 8:14 PM EST Testing was performed using the [employer] Respiratory Pathogen PCR Assay. All results must [...] MICROBIOLOGY - GENERAL MALAIKA HURD Final Result [facility] [address] [place] [address], [place] [phone] * Ethanol (03/25/2024 12:01 PM EST) [facility] Ethanol Level <3 0 - 10 mg/dL LAB CHEMISTRY METHOD 03/25/2024 1:57 PM [facility] Blood Venous blood specimen / Unknown Venipuncture / Unknown 03/25/2024 12:01 PM EST 03/25/2024 12:20 PM EST Radha MONTERO LAB BLOOD ORDERABLES Final Resu lt [facility] [address] [place] [address], [place] [phone] * (ABNORMAL) Urinalysis with reflex microscopic and culture (03/25/2024 8:26 AM EST) [facility] Specific [place] Urine 1.015 1.003 - 1.030 LAB URINALYSIS [...] MD LAB URINE ORDERABLES Monse l Result [facility] [address] [place] [address], * Lindsey urine culture tube (03/25/2024 8:26 AM EST) Extra Tube Hold for add-ons. 03/25/2024 10:01 AM [facility] Comment:Auto resulted. Urine Urine specimen obtained by clean catch procedure / Unknown Non-blood Collection / Unknown 03/25/2024 8:26 AM EST 03/25/2024 8:54 AM EST Noman Conteh MD LAB URINE ORDERABLES Monse l Result Performing Organization Address [facility]/ZIP Co de Phone Number [facility] [address] [place] [address], [place] [phone] * Culture urine (03/25/2024 8:26 AM EST) Pathologist [facility] [place] Culture, Urine No growth 03/26/2024 10:25 AM EST [facility] Urine Urine specimen obtained by clean catch procedure / Unknown Non-blood Collection / Unknown 03/25/2024 8:26 AM EST 03/25/2024 9:54 AM EST Noman Conteh MD LAB MICROBIOLOGY - GENERA L ORDERABLES Final Result Performing Organization Address [facility] de Phone Number [facility] [address] [place] [address], [place] [phone] * Hepatitis B surface antigen with reflex to confirmation (03/25/2024 8:17 AM EST) Pathologist [facility] [place] Hepatitis B Surface Ag Negative Negative LAB CHEMISTRY METHOD 03/25/2024 12:29 PM EST [facility] Blood Venous blood specimen / Unknown Venipuncture / Unknown 03/25/2024 8:17 AM EST 03/25/2024 8:57 AM EST Narrative [facility] - 03/25/2024 12:29 PM EST Over the counter supplements containing high doses of biotin may interfere with this assay. ??If interference is suspected, patients shoud be retested after refraining from biotin supplements for 72 hours. us Noman Conteh MD LAB BLOOD ORDERABLES Monse l Result Performing Organization Address City/[facility]/ZIP Co de Phone Number [facility] [address] [place] [address], * Hepatitis B surface antibody quantitative (03/25/2024 8:17 AM EST) Pathologist [facility] [place] Hepatitis B Surface Ab Negative Negative LAB CHEMISTRY METHOD 03/25/2024 12:18 PM EST [facility] Hepatitis B Surface Ab Quantitative 7.1 mIU/mL LAB CHEMISTRY METHOD 03/25/2024 12:18 PM [facility] Blood Venous blood specimen / Unknown Venipuncture / Unknown 03/25/2024 8:17 AM EST 03/25/2024 8:57 AM EST [facility] - 03/25/2024 12:18 PM EST >=10 mIU/mL is considered to be consistent with immunity. Noman Conteh MD LAB BLOOD ORDERABLES Monse l Result Performing Organization Address [facility] Co de Phone Number [facility] [address] [place] [address], * (ABNORMAL) Venous blood gas (03/25/2024 8:17 AM EST) Pathologist [facility] [place] pH, Parish 7.12(LL) 7.32 - 7.42 pH 03/25/2024 9:04 AM [facility] pCO2, Parish 48 41 - [...] - 2.0 mmol/L 03/25/2024 9:04 AM EST [facility] Blood Venous blood specimen / Unknown Venipuncture / Unknown 03/25/2024 8:17 AM EST 03/25/2024 8:56 AM EST Noman Conteh MD LAB BLOOD ORDERABLES Monse l Result Performing Organization Address [facility] Co de Phone Number [facility] [address] [place] [address], [place] [phone] * Ammonia (03/25/2024 8:17 AM EST) [facility] Ammonia 20 11 - 35 mcmol/L LAB CHEMISTRY METHOD 03/25/2024 9:17 AM EST [facility] Blood Venous blood specimen / Unknown Venipuncture / Unknown 03/25/2024 8:17 AM EST 03/25/2024 8:57 AM EST Noman Conteh MD LAB BLOOD ORDERABLES Monse l Result Performing Organization Address [facility] de Phone Number [facility] [address] [place] [address], [place] [phone] * ECG 12 lead (03/25/2024 7:58 AM EST) Ventricular Rate ECG 70 BPM GEMUSE Atrial Rate 70 BPM GEMUSE P-R Interval 174 ms GEMUSE QRS Duration 98 ms GEMUSE Q-T Interval 410 ms GEMUSE QTc 442 ms GEMUSE P Wave [place] 3 degrees GEMUSE R [place] 6 degrees GEMUSE T [place] 87 degrees GEMUSE ECG Interpretation Normal sinus rhythm Poor R wave progression When compared with ECG of 10-AUG-2020 02:25, No significant change was found Confirmed by Meena MACDONALD YUFENG ([id number]) on 03/25/2024 9:18:31 AM GEMUSE 03/25/2024 7:58 AM EST 03/25/2024 9:18 AM EST us Noman Cotneh MD ECG ORDERABLES Final Res ult GEMUSE * XR Chest 1 View (03/25/2024 7:46 AM EST) Anatomical Region Laterality Modality Body Radiographic Fawn ging 03/25/2024 8:45 AM EST Impressions 03/25/2024 8:46 AM EST Small right pleural effusion with underlying atelectasis and/or infiltrate. The left lung remains clear. Cardiomegaly, new since 08/10/2020. Code 82343 -------- FINAL REPORT -------- Dictated By: Daren Sol Dictated Date: 03/25/2024 08:45 ET Assigned Physician: Daren Sol Reviewed and Electronically Signed By: Daren Sol Signed Date: 03/25/2024 08:46 ET Workstation ID: [id number] Transcribed By: Self Edit Transcribed Date: 03/25/2024 [...] lung remains clear. Cardiomegaly, new since08/10/2020. Code 62171 -------- FINAL REPORT -------- Dictated By: Daren Sol Dictated Date: 03/25/2024 08:45 ET Assigned Physician: Daren Sol Reviewed and Electronically Signed By: Daren Sol Signed Date: 03/25/2024 08:46 ET Workstation ID: [id number] Transcribed By: Self Edit Transcribed Date: 03/25/2024 08:45 ET us Noman Conteh MD IMG XR PROCEDURES Final R esult * ECG-Annotated (03/25/2024) us Provider Onbase ECG ORDERABLES Final Result from Last 3 Months Insurance MEDICARE ADVANTAGE GENERIC MEDICARE MEDICAID - [place] Advance Directives Documents on File Type Date Recorded Patient Patient Financial Rep Expl anation Advance Directives and Living Will [...] Nestor Frank Health Care Agent Beau Frank 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
--- OUTSIDE RECORDS SUMMARY | 2024-06-12 12:22 | XMS_ITS | Encounter Summary ---
Author Organization [facility], Address [address] [place] [address] Phone Care Team Providers Care Supervisor Firearms Name Role Phone Jade Lewis MD Primary Care Provider [phone] Encounter Details Date Type Department Care Team (Late st Contact Info) Description 10/28/2019 Orders Only [facility] [address] [phone] [place] [address] [place] [phone] Social History Tobacco Use Types Packs/Day Years [...] filedocumented in this encounter Care Teams Supervisor Firearms Relationship Specialty Start Date End Date Jade Lewis MD [address] [place] [address] PCP - General Internal Medicine 04/25/22 documented as of this encounter
--- OUTSIDE RECORDS SUMMARY | 2024-06-12 12:22 | XMS_ITS | Encounter Summary ---
Author Organization [facility] Address [address] [place] [address] Phone Care Team Providers Care Reinforcing Iron Worker Helper Name Role Phone Jade Lewis MD Primary Care Provider + [phone] Reason for Visit * Reason Comments Med Refill Encounter Details Date Type Department Care Team (Late st Contact Info) Description 04/30/2021 Refill [facility] [address] [place] [phone] Alejandro Santana MD [address] [place] [phone] Social History Tobacco Use Types Packs/Day Years [...] on filedocumented in this encounter Care Teams Reinforcing Iron Worker Helper Relationship Specialty Start Date End Date Jade Lewis MD [address] [place] [address] PCP - General Internal Medicine 04/25/22 documented as of this encounter
--- OUTSIDE RECORDS SUMMARY | 2024-06-12 12:22 | XMS_ITS | Encounter Summary ---
Author Organization [facility], Address [address] [place] [address] Phone Care Team Providers Care Instructor Physical Name Role Phone Jade Lewis MD Primary Care Provider + [phone] Reason for Visit * Reason Comments Med Refill Encounter Details Date Type Department Care Team (Late st Contact Info) Description 04/27/2019 Refill [facility] [address] [place] [address] Mercedes Law MD Social History [...] filedocumented in this encounter Care Teams Instructor Physical Relationship Specialty Start Date End Date Jade Lewis MD [address] [place], [place] [address] PCP - General Internal Medicine 04/25/22 documented as of this encounter
--- OUTSIDE RECORDS SUMMARY | 2024-06-12 12:23 | XMS_ITS | Encounter Summary ---
Author Organization [facility] Address [address] [place] [address] Care Team Providers Care Speech Pathology Supervisor Name Role Phone Cass Turcios MD Primary Care Provider [phone] Encounter Details Date Type Department Care Team (Late st Contact Info) Description 05/30/2024 Lab Requisition [facility] - Main Lab [address] [facility] [place] [address] Laurence Florence MD [address] [place] [phone] Chronic respiratory failure with hypoxia (CMS/HCC); Encounter [...] care for your loved ones. For example, infant childcare provider or elderly care for an [...] the circulatory system Peripheral vascular disease, unspecified ([facility]/HCC) SEDIMENTATION RATE Routine 05/30/2024 7: 36 AM [...] MICROBIOLOGY - GENERAL ORDE VANNESSA Final Result [facility] [address] [place] [address], * Lactate (05/30/2024 7:36 AM EDT) Lactate 0.6 0.4 - 2.0 mmol/L LAB CHEMISTRY METHOD 05/30/2024 8:47 AM EDT [facility] Blood Venous blood specimen / Unknown Venipuncture / Unknown 05/30/2024 7:36 AM EDT 05/30/2024 8:11 AM EDT us Laurence Florence MD LAB BLOOD ORDERABLES Final Resu lt Performing Organization Address [facility]/ZIP Co de Phone Number [facility] [address] [place] [address], [place] [phone] * (ABNORMAL) C-reactive protein (05/30/2024 7:36 AM EDT) [facility] C-Reactive Protein 11.60(H) <=0.50 mg/dL LAB CHEMISTRY METHOD 05/30/2024 8:51 AM EDT [facility] Blood Venous blood specimen / Unknown Venipuncture / Unknown 05/30/2024 7:36 AM EDT 05/30/2024 8:11 AM EDT us Laurence Florence MD LAB BLOOD ORDERABLES Final Resu lt Performing Organization Address City/[facility]/ZIP Co de Phone Number [facility] [address] [place] [address], [place] [phone] * (ABNORMAL) Sedimentation rate (05/30/2024 7:36 AM EDT) [facility] Sed Rate >130(H) 0 - 20 mm/hr LAB HEMETOLOGY METHOD 05/30/2024 8:57 AM EDT [facility] Blood Venous blood specimen / Unknown Venipuncture / Unknown 05/30/2024 7:36 AM EDT 05/30/2024 8:11 AM EDT Narrative [facility] - 05/30/2024 8:57 AM EDT Rechecked. us Laurence Florence MD LAB BLOOD ORDERABLES Final Resu lt [facility] [address] [place] [address], [place] [phone] * (ABNORMAL) Comprehensive metabolic panel (05/30/2024 7:36 AM EDT) Sodium 140 133 - 145 mmol/L LAB CHEMISTRY METHOD 05/30/2024 9:08 AM [facility] Potassium 4.2 3.5 - 5.5 mmol/L LAB CHEMISTRY METHOD 05/30/2024 9:08 AM [facility] Chloride 104 96 - 110 mmol/L LAB CHEMISTRY METHOD 05/30/2024 9:08 AM [facility] CO2 28 21 - 32 mmol/L LAB CHEMISTRY METHOD 05/30/2024 9:08 AM [facility] Anion Gap 8 3 - 11 LAB CHEMISTRY METHOD 05/30/2024 9:08 AM [facility] Glucose 77 70 - 100 mg/dL LAB CHEMISTRY METHOD 05/30/2024 9:08 AM [facility] BUN 35(H) 5 - 25 mg/dL LAB CHEMISTRY METHOD 05/30/2024 9:08 AM [facility] Creatinine 5.30(H) 0.70 - 1.30 mg/dL LAB CHEMISTRY METHOD 05/30/2024 9:08 AM [facility] eGFR 11(L) >=60 mL/min/1. 73m2 LAB CHEMISTRY METHOD 05/30/2024 9:08 AM [facility] Comment:Calculation based on the??Chronic Kidney Disease Epidemiology Collaboration (CKD-EPI) equation refit??without adjustment for race. BUN/Creatinine Ratio 6.6 LAB CHEMISTRY METHOD 05/30/2024 9:08 AM [facility] Calcium 9.0 8.5 - 10.5 mg/dL LAB CHEMISTRY METHOD 05/30/2024 9:08 AM [facility] AST (SGOT) 10 10 - 42 unit/L LAB CHEMISTRY METHOD 05/30/2024 9:08 AM [facility] ALT (SGPT) 13 10 - 60 unit/L LAB CHEMISTRY METHOD 05/30/2024 9:08 AM [facility] Alkaline Phosphatase 141(H) 42 - 121 unit/L LAB CHEMISTRY METHOD 05/30/2024 9:08 AM [facility] Total Protein 6.3 6.0 - 8.0 g/dL LAB CHEMISTRY METHOD 05/30/2024 9:08 AM [facility] Albumin 2.5(L) 3.2 - 5.0 g/dL LAB CHEMISTRY METHOD 05/30/2024 9:08 AM [facility] Total Bilirubin 0.5 0.0 - 1.4 mg/dL LAB CHEMISTRY METHOD 05/30/2024 9:08 AM [facility] Blood Venous blood specimen / Unknown Venipuncture / Unknown 05/30/2024 7:36 AM EDT 05/30/2024 8:11 AM EDT us Laurence Florence MD LAB BLOOD ORDERABLES Final Resu lt [facility] [address] [place] [address], * (ABNORMAL) Complete blood count (05/30/2024 7:36 AM EDT) WBC 9.7 4.8 - 10.8 K/mcL LAB HEMETOLOGY METHOD 05/30/2024 8:29 AM T [facility] RBC 3.20(L) 4.50 - 5.50 M/mcL LAB HEMETOLOGY METHOD 05/30/2024 8:29 AM [facility] Hemoglobin 7.7(L) 13.5 - 17.5 g/dL LAB HEMETOLOGY METHOD 05/30/2024 8:29 AM [facility] Hematocrit 26.0(L) 42.0 - 54.0 % LAB HEMETOLOGY METHOD 05/30/2024 8:29 AM [facility] MCV 81.5 79.0 - 98.0 FL LAB HEMETOLOGY METHOD 05/30/2024 8:29 AM [facility] MCH 24.1(L) 27.0 - 32.0 pcg LAB HEMETOLOGY METHOD 05/30/2024 8:29 AM [facility] MCHC 29.6(L) 32.0 - 37.0 g/dL LAB HEMETOLOGY METHOD 05/30/2024 8:29 AM [facility] RDW 17.8(H) 11.0 - 15.0 % LAB HEMETOLOGY METHOD 05/30/2024 8:29 AM [facility] Platelets 244 130 - 400 K/mcL LAB HEMETOLOGY METHOD 05/30/2024 8:29 AM [facility] MPV 11.1(H) 7.0 - 11.0 FL LAB HEMETOLOGY METHOD 05/30/2024 8:29 AM [facility] NRBC 0.0 <1.0 % LAB HEMETOLOGY METHOD 05/30/2024 8:29 AM [facility] NRBC Absolute 0.00 <0.10 K/mcL LAB HEMETOLOGY METHOD 05/30/2024 8:29 AM [facility] Blood Venous blood specimen / Unknown Venipuncture / Unknown 05/30/2024 7:36 AM EDT 05/30/2024 8:11 AM EDT us Laurence Florence MD LAB BLOOD ORDERABLES Final Resu lt [facility] ([facility]) [facility] [address] [place] [address], documented in this encounter Visit Diagnoses Diagnosis Chronic respiratory failure with hypoxia Encounter for orthopedic aftercare following surgical amputation Encounter for surgical aftercare following surgery on the circulatory system Peripheral vascular disease, unspecified (CMS/HCC) Peripheral vascular disease, unspecified documented in this encounter Care Teams Speech Pathology Supervisor Relationship Specialty Start Date End Date Cass Turcios MD [address] [facility] [address] [place] [address] PCP - General Geriatric Medicine 04/02/24 documented as of this encounter
--- OUTSIDE RECORDS SUMMARY | 2024-06-12 12:23 | XMS_ITS | Encounter Summary ---
Author Organization [facility] Address [address] [place] [address] Care Team Providers Care Single Pointed Operator Name Role Phone Cass Turcios MD Primary Care Provider [phone] Encounter Details Date Type Department Care Team (Late st Contact Info) Description 05/30/2024 Lab Requisition [facility] - Main Lab [address] [facility] [place] [address] Laurence Florence MD [address] [place] [address] Chronic respiratory failure with hypoxia (CMS/HCC); Encounter [...] care for your loved ones. For example, registered nurse maternal child or elderly care for an [...] LAB MICROBIOLOGY METHOD 06/04/2024 9:01 AM EDT [facility] Blood Venipuncture / Unknown 05/30/2024 7:41 AM EDT 05/30/2024 8:14 AM EDT us Laurence Florence MD LAB MICROBIOLOGY - [facility] Final Result [facility] ([facility]) [facility] [address] [place] [address], documented in this encounter Visit Diagnoses Diagnosis Chronic respiratory failure with hypoxia Encounter for orthopedic aftercare following surgical amputation Encounter for surgical aftercare following surgery on the circulatory system Peripheral vascular disease, unspecified (CMS/[facility]) Peripheral vascular disease, unspecified documented in this encounter Care Teams Single Pointed Operator Relationship Specialty Start Date End Date Cass Turcios MD [address] [place] [address] [address] [place] [address] PCP - General Geriatric Medicine 04/02/24 documented as of this encounter
--- OUTSIDE RECORDS SUMMARY | 2024-06-12 12:23 | XMS_ITS | Encounter Summary ---
Author Organization [facility], Address [address] [place] [address] Phone Care Team Providers Care Post Anesthesia Room Nurse Name Role Phone Jade Lewis MD Primary Care Provider [phone] Reason for Visit * Reason Comments Med Refill Encounter Details Date Type Department Care Team (Late st Contact Info) Description 12/24/2022 Refill [facility] [place] [address] [place] [phone] Car Mcdonald MD [facility] [place] [address] Social History Tobacco Use Types Packs/Day Years [...] on filedocumented in this encounter Care Teams Post Anesthesia Room Nurse Relationship Specialty Start Date End Date Jade Lewis MD [address] [place] [address] PCP - General Internal Medicine 04/25/22 documented as of this encounter
--- OUTSIDE RECORDS SUMMARY | 2024-06-12 12:23 | XMS_ITS | Encounter Summary ---
Author Organization [facility] Address [address] [place] [address] Care Team Providers Care Grease Press Helper Name Role Phone Cass Turcios MD Primary Care Provider [phone] Encounter Details Date Type Department Care Team (Latest Contact Info) Description 05/17/2024 Lab Requisition [facility] - Main Lab [address] [facility] [place] [address] Laurence Florence MD [address] [place] [address] Type 2 diabetes mellitus without complications (CMS/HCC); [...] EDT Type 2 diabetes mellitus without complications ([facility]/HCC) End stage renal disease ([facility]/HCC) documented in this encounter Results * (ABNORMAL) Basic metabolic panel (05/17/2024 5:37 AM EDT) Sodium 135 133 - 145 mmol/L LAB CHEMISTRY METHOD 05/17/2024 11:[address] [facility] Potassium 5.5 3.5 - 5.5 mmol/L LAB CHEMISTRY METHOD 05/17/2024 11:[address] [facility] Chloride 95(L) 96 - 110 mmol/L LAB CHEMISTRY METHOD 05/17/2024 11:[address] [facility] CO2 29 21 - 32 mmol/L LAB CHEMISTRY METHOD 05/17/2024 11:[address] [facility] Anion Gap 11 3 - 11 LAB CHEMISTRY METHOD 05/17/2024 11:[address] [facility] Glucose 173(H) 70 - 100 mg/dL LAB CHEMISTRY METHOD 05/17/2024 11:[address] [facility] BUN 52(H) 5 - 25 mg/dL LAB CHEMISTRY METHOD 05/17/2024 11:[address] [facility] Creatinine 7.48(H) 0.70 - 1.30 mg/dL LAB CHEMISTRY METHOD 05/17/2024 11:[address] [facility] eGFR 7(L) >=60 mL/min/1. 73m2 LAB CHEMISTRY METHOD 05/17/2024 11:[address] [facility] Comment:Calculation based on the??Chronic Kidney Disease Epidemiology Collaboration (CKD-EPI) equation refit??without adjustment for race. BUN/Creatinine Ratio 7.0 LAB CHEMISTRY METHOD 05/17/2024 11:[address] [facility] Calcium 9.0 8.5 - 10.5 mg/dL LAB CHEMISTRY METHOD 05/17/2024 11:32 AM EDT [facility] Blood Venous blood specimen / Unknown Venipuncture / Unknown 05/17/2024 5:37 AM EDT 05/17/2024 9:43 AM EDT Laurence Florence MD LAB BLOOD ORDERABLES Final Resu lt Performing Organization Address [facility] Co de Phone Number [facility] [address] [place] [address], [place] [phone] * (ABNORMAL) Hemoglobin A1c (05/17/2024 5:37 AM EDT) Hemoglobin A1C 7.1(H) <6.5 % LAB CHEMISTRY METHOD 05/17/2024 1:30 PM EDT [facility] Mean Bld Glu Estim. 157 mg/dL LAB CHEMISTRY METHOD 05/17/2024 1:30 PM EDT [facility] Blood Venous blood specimen / Unknown Venipuncture / Unknown 05/17/2024 5:37 AM EDT 05/17/2024 9:43 AM EDT Laurence Florence MD LAB BLOOD ORDERABLES Final Resu lt Performing Organization Address [facility] de Phone Number [facility] [address] [place] [address], [place] [phone] * (ABNORMAL) Complete blood count (05/17/2024 5:37 AM EDT) WBC 16.6(H) 4.8 - 10.8 K/[facility] LAB HEMETOLOGY METHOD 05/17/2024 10:40 AM EDT [facility] RBC 3.70(L) 4.50 - 5.50 M/[facility] LAB HEMETOLOGY METHOD 05/17/2024 10:40 AM EDT [facility] Hemoglobin 8.9(L) 13.5 - 17.5 g/dL LAB HEMETOLOGY METHOD 05/17/2024 10:[address] [facility] Hematocrit 30.1(L) 42.0 - 54.0 % LAB HEMETOLOGY METHOD 05/17/2024 10:[address] [facility] MCV 82.5 79.0 - 98.0 FL LAB HEMETOLOGY METHOD 05/17/2024 10:[address] [facility] MCH 24.4(L) 27.0 - 32.0 pcg LAB HEMETOLOGY METHOD 05/17/2024 10:[address] [facility] MCHC 29.6(L) 32.0 - 37.0 g/dL LAB HEMETOLOGY METHOD 05/17/2024 10:[address] [facility] RDW 18.3(H) 11.0 - 15.0 % LAB HEMETOLOGY METHOD 05/17/2024 10:[address] [facility] Platelets 431(H) 130 - 400 K/mcL LAB HEMETOLOGY METHOD 05/17/2024 10:[address] [facility] MPV 10.6 7.0 - 11.0 FL LAB HEMETOLOGY METHOD 05/17/2024 10:[address] [facility] NRBC 0.0 <1.0 % LAB HEMETOLOGY METHOD 05/17/2024 10:[address] [facility] NRBC Absolute 0.00 <0.10 K/mcL LAB HEMETOLOGY METHOD 05/17/2024 10:[address] [facility] Blood Venous blood specimen / Unknown Venipuncture / Unknown 05/17/2024 5:37 AM EDT 05/17/2024 9:43 AM EDT us Laurence Florence MD LAB BLOOD ORDERABLES Final Resu lt [facility] ([facility]) [facility] [address] [place] [address], documented in this encounter Visit Diagnoses Diagnosis Type 2 diabetes mellitus without complications End stage renal disease (CMS/HCC) End stage renal disease documented in this encounter Care Teams Grease Press Helper Relationship Specialty Start Date End Date Cass Turcios MD [address] [place] [address] [address] [place] [address] PCP - General Geriatric Medicine 04/02/24 documented as of this encounter
--- OUTSIDE RECORDS SUMMARY | 2024-06-12 12:23 | XMS_ITS | Encounter Summary ---
Author Organization [facility] Address [address] [place] [address] Care Team Providers Care Photo Retoucher Name Role Phone Cass Turcios MD Primary Care Provider [phone] Encounter Details Date Type Department Care Team (Latest Contact Info) Description 05/28/2024 Lab Requisition [facility] - Main Lab [address] [facility] [place] [address] Laurence Florence MD [address] [place] [place] [address] Anemia, unspecified; End stage renal disease (CMS/HCC); [...] your loved ones. For example, child and adolescent therapist or elderly care for an older adult? [...] Magnesium (05/29/2024 5:09 AM EDT) Pathologist [facility] Magnesium 1.8(L) 1.9 - 2.6 mg/dL LAB CHEMISTRY METHOD 05/29/2024 9:20 AM EDT [facility] LAB Blood Venous blood specimen / Unknown Venipuncture / Unknown 05/29/2024 5:09 AM EDT 05/29/2024 8:42 AM EDT us Laurence Florence MD LAB BLOOD ORDERABLES Final Resu lt [facility] LAB [address] [place] [address], [place] [phone] * (ABNORMAL) Complete blood count (05/29/2024 5:09 AM EDT) [facility] WBC 10.8 4.8 - 10.8 K/mcL LAB HEMETOLOGY METHOD 05/29/2024 9:01 AM EDT [facility] LAB RBC 3.50(L) 4.50 - 5.50 M/mcL LAB HEMETOLOGY METHOD 05/29/2024 9:01 AM EDT [facility] LAB Hemoglobin 8.2(L) 13.5 - 17.5 g/dL LAB HEMETOLOGY METHOD 05/29/2024 9:01 AM EDT [facility] LAB Hematocrit 28.4(L) 42.0 - 54.0 % LAB HEMETOLOGY METHOD 05/29/2024 9:01 AM T [facility] LAB MCV 81.8 79.0 - 98.0 FL LAB HEMETOLOGY METHOD 05/29/2024 9:01 AM EDT [facility] LAB MCH 23.6(L) 27.0 - 32.0 pcg LAB HEMETOLOGY METHOD 05/29/2024 9:01 AM EDT [facility] LAB MCHC 28.9(L) 32.0 - 37.0 g/dL LAB HEMETOLOGY METHOD 05/29/2024 9:01 AM [facility] LAB RDW 18.2(H) 11.0 - 15.0 % LAB HEMETOLOGY METHOD 05/29/2024 9:01 AM EDT [facility] LAB Platelets 263 130 - 400 K/mcL LAB HEMETOLOGY METHOD 05/29/2024 9:01 AM [facility] LAB MPV 11.2(H) 7.0 - 11.0 FL LAB HEMETOLOGY METHOD 05/29/2024 9:01 AM [facility] LAB NRBC 0.0 <1.0 % LAB HEMETOLOGY METHOD 05/29/2024 9:01 AM [facility] LAB NRBC Absolute 0.00 <0.10 K/mcL LAB HEMETOLOGY METHOD 05/29/2024 9:01 AM [facility] LAB Blood Venous blood specimen / Unknown Venipuncture / Unknown 05/29/2024 5:09 AM EDT 05/29/2024 8:42 AM EDT us Laurence Florence MD LAB BLOOD ORDERABLES Final Resu lt [facility] LAB [address] [place] [address], * (ABNORMAL) Renal function panel (05/29/2024 5:09 AM EDT) Sodium 135 133 - 145 mmol/L LAB CHEMISTRY METHOD 05/29/2024 10:03 AM [facility] LAB Potassium 4.7 3.5 - 5.5 mmol/L LAB CHEMISTRY METHOD 05/29/2024 10:03 AM [facility] LAB Chloride 99 96 - 110 mmol/L LAB CHEMISTRY METHOD 05/29/2024 10:03 AM [facility] LAB CO2 27 21 - 32 mmol/L LAB CHEMISTRY METHOD 05/29/2024 10:03 AM [facility] LAB Anion Gap 9 3 - 11 LAB CHEMISTRY METHOD 05/29/2024 10:03 AM [facility] LAB Glucose 22(LL) 70 - 100 mg/dL LAB CHEMISTRY METHOD 05/29/2024 10:03 AM [facility] LAB BUN 60(H) 5 - 25 mg/dL LAB CHEMISTRY METHOD 05/29/2024 10:03 AM [facility] LAB Creatinine 7.71(H) 0.70 - 1.30 mg/dL LAB CHEMISTRY METHOD 05/29/2024 10:03 AM [facility] LAB eGFR 7(L) >=60 mL/min/1. 73m2 LAB CHEMISTRY METHOD 05/29/2024 10:03 AM [facility] LAB Comment:Calculation based on the??Chronic Kidney Disease Epidemiology Collaboration (CKD-EPI) equation refit??without adjustment for race. BUN/Creatinine Ratio 7.8 LAB CHEMISTRY METHOD 05/29/2024 10:03 AM [facility] LAB Albumin 2.4(L) 3.2 - 5.0 g/dL LAB CHEMISTRY METHOD 05/29/2024 10:03 AM [facility] LAB Calcium 8.7 8.5 - 10.5 mg/dL LAB CHEMISTRY METHOD 05/29/2024 10:03 AM [facility] LAB Phosphorus 4.7(H) 2.5 - 4.5 mg/dL LAB CHEMISTRY METHOD 05/29/2024 10:03 AM [facility] LAB Blood Venous blood specimen / Unknown Venipuncture / Unknown 05/29/2024 5:09 AM EDT 05/29/2024 8:42 AM EDT us Laurence Florence MD LAB BLOOD ORDERABLES Final Resu lt [facility] [address] [place] [address], documented in this encounter Visit Diagnoses Diagnosis Anemia, unspecified End stage renal disease (CMS/[facility]) End stage renal disease Unspecified asthma, uncomplicated documented in this encounter Care Teams Photo Retoucher Relationship Specialty Start Date End Date Cass Turcios MD [address] [place] [address] [address] [place] [address] PCP - General Geriatric Medicine 04/02/24 documented as of this encounter
--- OUTSIDE RECORDS SUMMARY | 2024-06-12 12:23 | XMS_ITS | Encounter Summary ---
Author Organization [facility] Address [address] [place] [address] Care Team Providers Care Food Service Representative Name Role Phone Cass Turcios MD Primary Care Provider [phone] Encounter Details Date Type Department Care Team (Latest Contact Info) Description 05/24/2024 Lab Requisition [facility] - Main Lab 299 [facility] [place] [address] Laurence Florence MD [address] [place] [id number] Chronic combined systolic (congestive) and diastolic (congestive) [...] for your loved ones. For example, child day care provider or elderly care for an older [...] mellitus without complications End stage renal disease ([facility]) CBC AND DIFFERENTIAL Routine 05/24/2024 5:56 AM [...] CBC auto differential (05/24/2024 5:56 AM EDT) [facility] WBC 9.3 4.8 - 10.8 K/mcL LAB HEMETOLOGY METHOD 05/24/2024 9:31 AM [facility] LAB RBC 3.40(L) 4.50 - 5.50 M/mcL LAB HEMETOLOGY METHOD 05/24/2024 9:31 AM [facility] LAB Hemoglobin 8.5(L) 13.5 - 17.5 g/dL LAB HEMETOLOGY METHOD 05/24/2024 9:31 AM [facility] LAB Hematocrit 28.2(L) 42.0 - 54.0 % LAB HEMETOLOGY METHOD 05/24/2024 9:31 AM [facility] LAB MCV 82.0 79.0 - 98.0 FL LAB HEMETOLOGY METHOD 05/24/2024 9:31 AM [facility] LAB MCH 24.7(L) 27.0 - 32.0 pcg LAB HEMETOLOGY METHOD 05/24/2024 9:31 AM [facility] LAB MCHC 30.1(L) 32.0 - 37.0 g/dL LAB HEMETOLOGY METHOD 05/24/2024 9:31 AM [facility] LAB RDW 17.8(H) 11.0 - 15.0 % LAB HEMETOLOGY METHOD 05/24/2024 9:31 AM [facility] LAB Platelets 335 130 - 400 K/mcL LAB HEMETOLOGY METHOD 05/24/2024 9:31 AM [facility] LAB MPV 10.5 7.0 - 11.0 FL LAB HEMETOLOGY METHOD 05/24/2024 9:31 AM [facility] LAB NRBC 0.0 <1.0 % LAB HEMETOLOGY METHOD 05/24/2024 9:31 AM [facility] LAB NRBC Absolute 0.00 <0.10 K/mcL LAB HEMETOLOGY METHOD 05/24/2024 9:31 AM [facility] LAB Neutrophils Relative 67.5 % LAB HEMETOLOGY METHOD 05/24/2024 9:31 AM [facility] LAB Lymphocytes Relative 16.4 % LAB HEMETOLOGY METHOD 05/24/2024 9:31 AM [facility] LAB Monocytes Relative 10.6 % LAB HEMETOLOGY METHOD 05/24/2024 9:31 AM [facility] LAB Eosinophils Relative 4.5 % LAB HEMETOLOGY METHOD 05/24/2024 9:31 AM [facility] LAB Basophils Relative 0.4 % LAB HEMETOLOGY METHOD 05/24/2024 9:31 AM [facility] LAB Immature Granulocytes Relative 0.6 % LAB HEMETOLOGY METHOD 05/24/2024 9:31 AM [facility] LAB Neutrophils Absolute 6.24 1.50 - 7.00 K/mcL LAB HEMETOLOGY METHOD 05/24/2024 9:31 AM [facility] LAB Lymphocytes Absolute 1.52 1.00 - 5.00 K/mcL LAB HEMETOLOGY METHOD 05/24/2024 9:31 AM [facility] LAB Monocytes Absolute 0.98 0.20 - 1.00 K/mcL LAB HEMETOLOGY METHOD 05/24/2024 9:31 AM [facility] LAB Eosinophils Absolute 0.42 0.00 - 0.50 K/Health system LAB HEMETOLOGY METHOD 05/24/2024 9:31 AM EDT [facility] LAB Basophils Absolute 0.04 0.00 - 0.20 K/Health system LAB HEMETOLOGY METHOD 05/24/2024 9:31 AM EDT [facility] LAB Immature Granulocytes Absolute 0.06(H) 0.00 - 0.03 K/Health system LAB HEMETOLOGY METHOD 05/24/2024 9:31 AM EDT [facility] LAB Blood Venous blood specimen / Unknown Venipuncture / Unknown 05/24/2024 5:56 AM EDT 05/24/2024 8:41 AM EDT us Laurence Florence MD LAB BLOOD ORDERABLES Final Resu lt [facility] LAB [address] [place] [address], * (ABNORMAL) Basic metabolic panel (05/24/2024 5:56 AM EDT) Sodium 134 133 - 145 mmol/L LAB CHEMISTRY METHOD 05/24/2024 9:53 AM [facility] LAB Potassium 4.8 3.5 - 5.5 mmol/L LAB CHEMISTRY METHOD 05/24/2024 9:53 AM [facility] LAB Chloride 100 96 - 110 mmol/L LAB CHEMISTRY METHOD 05/24/2024 9:53 AM [facility] LAB CO2 26 21 - 32 mmol/L LAB CHEMISTRY METHOD 05/24/2024 9:53 AM [facility] LAB Anion Gap 8 3 - 11 LAB CHEMISTRY METHOD 05/24/2024 9:53 AM [facility] LAB Glucose 131(H) 70 - 100 [...] Resu lt [facility] LAB [address] [place] [address], documented in this encounter Visit Diagnoses Diagnosis Chronic combined systolic (congestive) and diastolic (congestive) heart failure Type 2 diabetes mellitus without complications End stage renal disease (CMS/HCC) End stage renal disease documented in this encounter Care Teams Food Service Representative Relationship Specialty Start Date End Date Cass Turcios MD [address] [place] [address] [address] [place] [address] PCP - General Geriatric Medicine 04/02/24 documented as of this encounter
--- OUTSIDE RECORDS SUMMARY | 2024-06-12 12:23 | XMS_ITS | Encounter Summary ---
Author Organization [facility] Address [address] [place] [address] Care Team Providers Care Cylinder Machine Operator Pulp Drier Name Role Phone Cass Turcios MD Primary Care Provider [phone] Encounter Details Date Type Department Care Team (Late st Contact Info) Description 05/18/[address] [facility] - Main Lab [address] [facility] [place] [address] Elsy Christina PA [address] [facility] [address] [place] [address] Unspecified systolic (congestive) heart failure (CMS/HCC); [...] AM EDT Unspecified systolic (congestive) heart failure ([facility]/HCC) Type 2 diabetes mellitus without complications (CMS/HCC) End stage renal disease (CMS/HCC) BASIC METABOLIC PANEL Routine 05/18/2024 7:20 AM EDT Unspecified systolic (congestive) heart failure ([facility]/HCC) Type 2 diabetes mellitus without complications (CMS/HCC) End stage renal disease (CMS/HCC) documented in this encounter Results * (ABNORMAL) CBC auto differential (05/18/2024 7:20 AM EDT) WBC 14.7(H) 4.8 - 10.8 K/mcL LAB HEMETOLOGY METHOD 05/18/2024 10:27 AM [facility] LAB RBC 3.60(L) 4.50 - 5.50 M/mcL LAB HEMETOLOGY METHOD 05/18/2024 10:27 AM [facility] LAB Hemoglobin 8.8(L) 13.5 - 17.5 g/dL LAB HEMETOLOGY METHOD 05/18/2024 10:27 AM [facility] LAB Hematocrit 29.6(L) 42.0 - 54.0 % LAB HEMETOLOGY METHOD 05/18/2024 10:27 AM [facility] LAB MCV 83.1 79.0 - 98.0 FL LAB HEMETOLOGY METHOD 05/18/2024 10:27 AM [facility] LAB MCH 24.7(L) 27.0 - 32.0 pcg LAB HEMETOLOGY METHOD 05/18/2024 10:27 AM [facility] LAB MCHC 29.7(L) 32.0 - 37.0 g/dL LAB HEMETOLOGY METHOD 05/18/2024 10:27 AM [facility] LAB RDW 18.3(H) 11.0 - 15.0 % LAB HEMETOLOGY METHOD 05/18/2024 10:27 AM [facility] LAB Platelets 433(H) 130 - 400 K/mcL LAB HEMETOLOGY METHOD 05/18/2024 10:27 AM [facility] LAB MPV 10.5 7.0 - 11.0 FL LAB HEMETOLOGY METHOD 05/18/2024 10:27 AM [facility] LAB NRBC 0.0 <1.0 % LAB HEMETOLOGY METHOD 05/18/2024 10:27 AM [facility] LAB NRBC Absolute 0.00 <0.10 K/mcL LAB HEMETOLOGY METHOD 05/18/2024 10:27 AM [facility] LAB Neutrophils Relative 75.0 % LAB HEMETOLOGY METHOD 05/18/2024 10:27 AM [facility] LAB Lymphocytes Relative 15.7 % LAB HEMETOLOGY METHOD 05/18/2024 10:27 AM [facility] LAB Monocytes Relative 5.9 % LAB HEMETOLOGY METHOD 05/18/2024 10:27 AM [facility] LAB Eosinophils Relative 2.5 % LAB HEMETOLOGY METHOD 05/18/2024 10:27 AM [facility] LAB Basophils Relative 0.3 % LAB HEMETOLOGY METHOD 05/18/2024 10:27 AM [facility] LAB Immature Granulocytes Relative 0.6 % LAB HEMETOLOGY METHOD 05/18/2024 10:27 AM [facility] LAB Neutrophils Absolute 11.02(H) 1.50 - 7.00 K/mcL LAB HEMETOLOGY METHOD 05/18/2024 10:27 AM [facility] LAB Lymphocytes Absolute 2.30 1.00 - 5.00 K/[facility] LAB HEMETOLOGY METHOD 05/18/2024 10:27 AM EDT [facility] LAB Monocytes Absolute 0.87 0.20 - 1.00 K/[facility] LAB HEMETOLOGY METHOD 05/18/2024 10:27 AM EDT [facility] LAB Eosinophils Absolute 0.37 0.00 - 0.50 K/[facility] LAB HEMETOLOGY METHOD 05/18/2024 10:27 AM EDT [facility] LAB Basophils Absolute 0.04 0.00 - 0.20 K/[facility] LAB HEMETOLOGY METHOD 05/18/2024 10:27 AM EDT [facility] LAB Immature Granulocytes Absolute 0.09(H) 0.00 - 0.03 K/[facility] LAB HEMETOLOGY METHOD 05/18/2024 10:27 AM EDT [facility] LAB Blood Venous blood specimen / Unknown Venipuncture / Unknown 05/18/2024 7:20 AM EDT 05/18/2024 9:58 AM EDT us Elsy MONTERO LAB BLOOD ORDERABLES Final Re sult [facility] LAB [address] [place] [address], * (ABNORMAL) Hemoglobin A1c (05/18/2024 7:20 AM [...] MONTERO LAB BLOOD ORDERABLES Final Re sult [facility] [address] [place] [address], * (ABNORMAL) Basic metabolic panel (05/18/2024 7:20 AM EDT) Sodium 136 133 - 145 mmol/L LAB CHEMISTRY METHOD 05/18/2024 10:41 AM [facility] LAB Potassium 4.8 3.5 - 5.5 mmol/L LAB CHEMISTRY METHOD 05/18/2024 10:41 AM [facility] LAB Chloride 100 96 - 110 mmol/L LAB CHEMISTRY METHOD 05/18/2024 10:41 AM [facility] LAB CO2 28 21 - 32 mmol/L LAB CHEMISTRY METHOD 05/18/2024 10:41 AM [facility] LAB Anion Gap 8 3 - 11 LAB CHEMISTRY METHOD 05/18/2024 10:41 AM [facility] LAB Glucose 77 70 - 100 mg/dL LAB CHEMISTRY METHOD 05/18/2024 10:41 AM [facility] LAB BUN 43(H) 5 - 25 mg/dL LAB CHEMISTRY METHOD 05/18/2024 10:41 AM [facility] LAB Creatinine 6.49(H) 0.70 - 1.30 mg/dL LAB CHEMISTRY METHOD 05/18/2024 10:41 AM [facility] LAB eGFR 9(L) >=60 mL/min/1. 73m2 LAB CHEMISTRY METHOD 05/18/2024 10:41 AM [facility] LAB Comment:Calculation based on the??Chronic Kidney Disease Epidemiology Collaboration (CKD-EPI) equation refit??without adjustment for race. BUN/Creatinine Ratio 6.6 LAB CHEMISTRY METHOD 05/18/2024 10:41 AM [facility] LAB Calcium 9.0 8.5 - 10.5 mg/dL LAB CHEMISTRY METHOD 05/18/2024 10:41 AM EDT [facility] LAB Blood Venous blood specimen / Unknown Venipuncture / Unknown 05/18/2024 7:20 AM EDT 05/18/2024 9:58 AM EDT us Elsy MONTERO LAB BLOOD ORDERABLES Final Re sult [facility] [address] [place] [address], documented in this encounter Visit Diagnoses Diagnosis Unspecified systolic (congestive) heart failure (CMS/HCC) Type 2 diabetes mellitus without complications End stage renal disease (CMS/HCC) End stage renal disease documented in this encounter Care Teams Cylinder Machine Operator Pulp Drier Relationship Specialty Start Date End Date Cass Turcios MD [address] [place] [address] [address] [place] [address] PCP - General Geriatric Medicine 04/02/24 documented as of this encounter
--- OUTSIDE RECORDS SUMMARY | 2024-06-12 12:23 | XMS_ITS | Encounter Summary ---
Author Organization [facility] Address [address] [place] [address] Care Team Providers Care Surgery Consultant Name Role Phone Cass Turcios MD Primary Care Provider [phone] Encounter Details Date Type Department Care Team (Late st Contact Info) Description 05/20/2024 Lab Requisition [facility] - Main Lab [address] [facility] [place] [address] Laurence Florence MD [address] [place] [id number] Elevated white blood cell count, unspecified Social [...] mmol/L LAB CHEMISTRY METHOD 05/20/2024 1:59 PM [facility] LAB Potassium 5.8(H) 3.5 - 5.5 mmol/L LAB CHEMISTRY METHOD 05/20/2024 1:59 PM [facility] LAB Chloride 100 96 - 110 mmol/L LAB CHEMISTRY METHOD 05/20/2024 1:59 PM [facility] LAB CO2 26 21 - 32 mmol/L LAB CHEMISTRY METHOD 05/20/2024 1:59 PM [facility] LAB Anion Gap 12(H) 3 - 11 LAB CHEMISTRY METHOD 05/20/2024 1:59 PM [facility] LAB Glucose 130(H) 70 - 100 mg/dL LAB CHEMISTRY METHOD 05/20/2024 1:59 PM [facility] LAB BUN 76(H) 5 - 25 mg/dL LAB CHEMISTRY METHOD 05/20/2024 1:59 PM [facility] LAB Creatinine 9.66(H) 0.70 - 1.30 mg/dL LAB CHEMISTRY METHOD 05/20/2024 1:59 PM [facility] LAB eGFR 5(L) >=60 mL/min/1. 73m2 LAB CHEMISTRY METHOD 05/20/2024 1:59 PM [facility] LAB Comment:Calculation based on the??Chronic Kidney Disease Epidemiology Collaboration (CKD-EPI) equation refit??without adjustment for race. BUN/Creatinine Ratio 7.9 LAB CHEMISTRY METHOD 05/20/2024 1:59 PM [facility] LAB Calcium 9.2 8.5 - 10.5 mg/dL LAB CHEMISTRY METHOD 05/20/2024 1:59 PM [facility] LAB AST (SGOT) 9(L) 10 - 42 unit/L LAB CHEMISTRY METHOD 05/20/2024 1:59 PM [facility] LAB ALT (SGPT) 14 10 - 60 unit/L LAB CHEMISTRY METHOD 05/20/2024 1:59 PM EDT [facility] LAB Alkaline Phosphatase 142(H) 42 - 121 unit/L LAB CHEMISTRY METHOD 05/20/2024 1:59 PM EDT [facility] Total Protein 6.1 6.0 - 8.0 g/dL LAB CHEMISTRY METHOD 05/20/2024 1:59 PM EDT [facility] Albumin 2.5(L) 3.2 - 5.0 g/dL LAB CHEMISTRY METHOD 05/20/2024 1:59 PM EDT [facility] Total Bilirubin 0.4 0.0 - 1.4 mg/dL LAB CHEMISTRY METHOD 05/20/2024 1:59 PM EDT [facility] LAB Blood Venous blood specimen / Unknown Venipuncture / Unknown 05/20/2024 6:04 AM EDT 05/20/2024 11:40 AM EDT us Laurence Florence MD LAB BLOOD ORDERABLES Final Resu lt [facility] LAB [address] [place] [address], * (ABNORMAL) Complete blood count (05/20/2024 6:04 AM EDT) WBC 15.6(H) 4.8 - 10.8 K/mcL LAB HEMETOLOGY METHOD 05/20/2024 1:18 PM EDT [facility] RBC 3.50(L) 4.50 - 5.50 M/mcL LAB HEMETOLOGY METHOD 05/20/2024 1:18 PM EDT [facility] Hemoglobin 8.6(L) 13.5 - 17.5 g/dL LAB HEMETOLOGY METHOD 05/20/2024 1:18 PM EDT [facility] LAB Hematocrit 29.0(L) 42.0 - 54.0 % LAB HEMETOLOGY METHOD 05/20/2024 1:18 PM EDT [facility] LAB MCV 82.9 79.0 - 98.0 FL LAB HEMETOLOGY METHOD 05/20/2024 1:18 PM EDT [facility] LAB MCH 24.6(L) 27.0 - 32.0 pcg LAB HEMETOLOGY METHOD 05/20/2024 1:18 PM EDT [facility] LAB MCHC 29.7(L) 32.0 - 37.0 g/dL LAB HEMETOLOGY METHOD 05/20/2024 1:18 PM EDT [facility] LAB RDW 19.1(H) 11.0 - 15.0 % LAB HEMETOLOGY METHOD 05/20/2024 1:18 PM EDT [facility] Platelets 479(H) 130 - 400 K/mcL LAB HEMETOLOGY METHOD 05/20/2024 1:18 PM EDT [facility] LAB MPV 11.3(H) 7.0 - 11.0 FL LAB HEMETOLOGY METHOD 05/20/2024 1:18 PM EDT [facility] NRBC 0.0 <1.0 % LAB HEMETOLOGY METHOD 05/20/2024 1:18 PM EDT [facility] LAB NRBC Absolute 0.00 <0.10 K/mcL LAB HEMETOLOGY METHOD 05/20/2024 1:18 PM EDT [facility] LAB Blood Venous blood specimen / Unknown Venipuncture / Unknown 05/20/2024 6:04 AM EDT 05/20/2024 11:40 AM EDT us Laurence Florence MD LAB BLOOD ORDERABLES Final Resu lt [facility] [address] [place] [address], documented in this encounter Visit Diagnoses Diagnosis Elevated white blood cell count, unspecified documented in this encounter Care Teams Surgery Consultant Relationship Specialty Start Date End Date Cass Turcios MD [address] [place] [address] [address] [place] [address] PCP - General Geriatric Medicine 04/02/24 documented as of this encounter
--- OUTSIDE RECORDS SUMMARY | 2024-06-12 12:23 | XMS_ITS | Encounter Summary ---
Author Organization [facility] Address [address] [place] [address] Care Team Providers Care Hotel Or Motel Room Service Supervisor Name Role Phone Cass Turcios MD Primary Care Provider [phone] Encounter Details Date Type Department Care Team ([facility] st Contact Info) Description 05/21/2024 Lab Requisition [facility] - Main Lab [address] [facility] [place] [address] Laurence Florence MD [address] [place] [address] Chronic combined systolic (congestive) and diastolic (congestive) [...] your loved ones. For example, child welfare assistant or elderly care for an older [...] auto differential (05/21/2024 5:40 AM EDT) Pathologist [facility] WBC 14.4(H) 4.8 - 10.8 K/mcL LAB HEMETOLOGY [facility] RBC 3.80(L) 4.50 - 5.50 M/mcL LAB HEMETOLOGY METHOD 05/21/2024 12:49 PM [facility] Hemoglobin 9.5(L) 13.5 - 17.5 g/dL LAB HEMETOLOGY METHOD 05/21/2024 12:49 PM [facility] Hematocrit 33.1(L) 42.0 - 54.0 % LAB HEMETOLOGY METHOD 05/21/2024 12:49 PM [facility] MCV 87.1 79.0 - 98.0 FL LAB HEMETOLOGY METHOD 05/21/2024 12:49 PM [facility] MCH 25.0(L) 27.0 - 32.0 pcg LAB HEMETOLOGY METHOD 05/21/2024 12:49 PM [facility] MCHC 28.7(L) 32.0 - 37.0 g/dL LAB HEMETOLOGY METHOD 05/21/2024 12:49 PM [facility] RDW 19.6(H) 11.0 - 15.0 % LAB HEMETOLOGY METHOD 05/21/2024 12:49 PM [facility] Platelets 447(H) 130 - 400 K/mcL LAB HEMETOLOGY METHOD [facility] MPV 11.3(H) 7.0 - 11.0 FL LAB HEMETOLOGY METHOD 05/21/2024 12:49 PM [facility] NRBC 0.0 <1.0 % LAB HEMETOLOGY METHOD 05/21/2024 12:49 PM [facility] NRBC Absolute 0.00 <0.10 K/mcL LAB HEMETOLOGY METHOD 05/21/2024 12:49 PM [facility] Neutrophils Relative 76.8 % LAB HEMETOLOGY METHOD 05/21/2024 12:49 PM [facility] Lymphocytes Relative 13.0 % LAB HEMETOLOGY METHOD 05/21/2024 12:49 PM [facility] Monocytes Relative 7.0 % LAB HEMETOLOGY METHOD 05/21/2024 12:49 PM [facility] Eosinophils Relative 2.0 % LAB HEMETOLOGY METHOD 05/21/2024 12:49 PM [facility] Basophils Relative 0.4 % LAB HEMETOLOGY METHOD 05/21/2024 12:49 PM [facility] Immature Granulocytes Relative 0.8 % LAB HEMETOLOGY METHOD 05/21/2024 12:49 PM [facility] Neutrophils Absolute 11.05(H) 1.50 - 7.00 K/mcL LAB HEMETOLOGY METHOD 05/21/2024 12:49 PM [facility] Lymphocytes Absolute 1.87 1.00 - 5.00 K/mcL LAB HEMETOLOGY METHOD 05/21/2024 12:49 PM [facility] Monocytes Absolute 1.00 0.20 - 1.00 K/mcL LAB HEMETOLOGY METHOD 05/21/2024 12:49 PM [facility] Eosinophils Absolute 0.29 0.00 - 0.50 K/[facility] LAB HEMETOLOGY METHOD 05/21/2024 12:49 PM EDT [facility] Basophils Absolute 0.06 0.00 - 0.20 K/[facility] LAB HEMETOLOGY METHOD 05/21/2024 12:49 PM EDT [facility] Immature Granulocytes Absolute 0.11(H) 0.00 - 0.03 K/[facility] LAB HEMETOLOGY METHOD 05/21/2024 12:49 PM EDT [facility] Blood Venous blood specimen / Unknown Venipuncture / Unknown 05/21/2024 5:40 AM EDT 05/21/2024 11:19 AM EDT us Laurence Florence MD LAB BLOOD ORDERABLES Final Resu lt [facility] [address] [place] [address], * (ABNORMAL) Basic metabolic panel (05/21/2024 5:40 AM EDT) Sodium 137 133 - 145 mmol/L LAB CHEMISTRY METHOD 05/21/2024 2:38 PM [facility] Potassium 5.3 3.5 - 5.5 mmol/L LAB CHEMISTRY METHOD 05/21/2024 2:38 PM [facility] Comment:Hemolysis present Chloride 99 96 - 110 mmol/L LAB CHEMISTRY METHOD 05/21/2024 2:38 PM [facility] CO2 27 21 - 32 mmol/L LAB CHEMISTRY METHOD 05/21/2024 2:38 PM [facility] Anion Gap 11 3 - 11 LAB CHEMISTRY METHOD 05/21/2024 2:38 PM [facility] Glucose 76 70 - 100 mg/dL LAB CHEMISTRY METHOD 05/21/2024 2:38 PM [facility] BUN 58(H) 5 - 25 mg/dL LAB CHEMISTRY METHOD 05/21/2024 2:38 PM EDT [facility] Creatinine 7.10(H) 0.70 - 1.30 mg/dL LAB CHEMISTRY METHOD 05/21/2024 2:38 PM EDT [facility] eGFR 8(L) >=60 mL/min/1. 73m2 LAB CHEMISTRY METHOD 05/21/2024 2:38 PM EDT [facility] Comment:Calculation based on the??Chronic Kidney Disease Epidemiology Collaboration (CKD-EPI) equation refit??without adjustment for race. BUN/Creatinine Ratio 8.2 LAB CHEMISTRY METHOD 05/21/2024 2:38 PM EDT [facility] Calcium 8.6 8.5 - 10.5 mg/dL LAB CHEMISTRY METHOD 05/21/2024 2:38 PM EDT [facility] Blood Venous blood specimen / Unknown Venipuncture / Unknown 05/21/2024 5:40 AM EDT 05/21/2024 11:19 AM EDT us Laurence Florence MD LAB BLOOD ORDERABLES Final Resu lt [facility] [address] [place] [address], documented in this encounter Visit Diagnoses Diagnosis Chronic combined systolic (congestive) and diastolic (congestive) heart failure End stage renal disease (CMS/HCC) End stage renal disease documented in this encounter Care Teams Hotel Or Motel Room Service Supervisor Relationship Specialty Start Date End Date Cass Turcios MD [address] [place] [address] [address] [place] [address] PCP - General Geriatric Medicine 04/02/24 documented as of this encounter
--- OUTSIDE RECORDS SUMMARY | 2024-06-12 12:23 | XMS_ITS | Encounter Summary ---
Author Organization [facility], Address [address] [place] [address] Phone Care Team Providers Care Field Artillery Senior Sergeant Name Role Phone Jade Lewis MD Primary Care Provider + [phone] Reason for Visit * Reason Comments Med Refill Encounter Details Date Type Department Care Team ([facility] st Contact Info) Description 10/28/2020 Refill [facility] [address] [place] [phone] Alejandro Santana MD [address] [place] [phone] Social History Tobacco Use Types Packs/Day Years [...] on filedocumented in this encounter Care Teams Field Artillery Senior Sergeant Relationship Specialty Start Date End Date Jade Lewis MD [address] [place] [id number] PCP - General Internal Medicine 04/25/22 documented as of this encounter
--- OUTSIDE RECORDS SUMMARY | 2024-06-12 12:23 | XMS_ITS | Encounter Summary ---
Author Organization [facility], Address [address] [place] [address] Phone Care Team Providers Care Manufacturer'S Representative Name Role Phone Jade Lewis MD Primary Care Provider [phone] Reason for Visit * Reason Comments Med Refill Encounter Details Date Type Department Care Team (Late st Contact Info) Description 09/17/2022 Refill [facility] [address] [place] [phone] aMlcolm Taylor MD [address] [place] [address] [place] [address] Social History Tobacco Use Types Packs/Day Years [...] on filedocumented in this encounter Care Teams Manufacturer'S Representative Relationship Specialty Start Date End Date Jade Lewis MD [address] [place] [phone] PCP - General Internal Medicine 04/25/22 documented as of this encounter
--- OUTSIDE RECORDS SUMMARY | 2024-06-12 12:23 | XMS_ITS | Clinical Summary ---
Author Organization [facility] Address [address] [facility] [address] [place] [address] Phone Care Team Providers Care Lock Plater Name Role Phone Jade Lewis MD Primary Care Provider + [phone] Allergies Active Allergy Reactions Criticality Noted Date [...] FOR WHEEZING 1 Active ergocalciferol 1.25 MG (12299 UT) capsule Take 1 capsule (50,000 Units total) by mouth 1 (one) time per week 4 capsule 5 1 Active cetirizine (ZyrTEC) 10 MG tablet Take 10 mg by mouth 1 (one) time each day Active Fluticasone-Salm eterol 100-50 MCG/ACT aerosol powder [facility] [place], [place] - [id number] [place] [phone] 60.00 Each 5 30 INHALE 1 PUFF [...] mouth daily. Prescribed by Dr. Car Mcdonald (mdm developer). 2 Active aspirin (ST ANITRA) 81 [...] asthma 03/31/2022 Overview (09/15/2022): 08/19/21 Eval at [facility]. Increase Advair to 100/50 F/u 6 months. 05/24/22 Eval at [facility], Dr Funez. Recommends Trelegy once daily. Plan for sleep study to assess need for CPAP. Systemic inflammatory response syndrome 10/06/19 Acute mastoiditis of right ear with other compli cation 09/18/2021 Asthma 06/29/2021 Arthritis 06/29/2021 Dyslipidemia 06/28/2021 Obese class I 06/28/2021 Hypertensive disorder 06/28/2021 Near syncope 06/28/2021 Vascular disorder 06/28/2021 Superior vena cava syndrome 05/25/2021 Overview (06/28/2021): [place] [facility]-05[place]12[place]21 for facial swelling [...] 2 COVID-19 04/12/2021 Overview (06/28/2021): [place] [facility] [place]-03[place]18[place]21 for Covid-19 and [...] thrombosis 01/04/2021 Overview (01/26/2021): 12/13/20-12/19/20 [place] [facility] [place] non-occulsive thrombosis in R internal jugular vein. Acute embolism and thrombosis of left internal j ugular vein 12/21/2020 End stage renal failure on dialysis 11/19/2020 Overview (10/05/2021): [facility] Hypocalcemia 11/13/2020 Angina pectoris 11/09/2020 Coagulation defect 11/09/2020 Headache 11/09/2020 Type 2 diabetes mellitus with diabetic nephropat hy 11/09/2020 Edema 09/28/2020 Iron deficiency anemia 12/24/2019 Chronic kidney disease stage 4 02/19/2019 Anemia in chronic kidney disease 02/19/2019 History of colonoscopy 03/30/2016 Overview (01/26/2021): Approximately 2010 in [place] per Pt 11/24/20 Eval at [facility], recommend colonoscopy. Resolved Problems Problem [...] diabetes mellitus 06/12/2015 Overview (01/26/2021): Followed by [facility]. Last visit 06/23/15, HbA1c = 11.1%. Has diabetic nephropathy, retinopathy, and peripheral neuropathy. Switched to Novolin 70/30. Taking 23 units TID with meals, may titrate up/down depending on BG readings over the next few days. They are trying to submit PA for Lyrica. 04/27/16 F/u with Estefani Kaur, at [facility]. Titrate Novolog 70/30 to 22 units with breakfast, 30 units with dinner. If no improvement or if ongoing hypoglycemia will consider switchign to Levemir and Humalog; F/u 3 months 11/03/20 F/u [facility]. A1c > 12% Continue Lanuts 52 and Humalog 4-8 untsi with meals. Consider using NPH during peritoneal dialysis Encounters Date Type Department Care Team Description 05/01/2024 Orders Only [facility] [address] [address] Car Mcdonald MD 2024 Orders Only [facility] [address] [address] Car Mcdonald MD 2024 Treatment [facility] [address] [place] [address] Arely Hernández APRN 04/24/2024 Treatment [facility] [address] [place] [address] Malcolm Taylor MD End stage renal disease; Dependence on renal dialysis 04/24/2024 Orders Only [facility] [address] [address] Car Mcdonald MD 04/22/2024 Orders Only [facility] [address] [address] Car Mcdonald MD 04/19/2024 Orders Only [facility] [address] [address] Car Mcdonald MD 04/19/2024 Treatment [facility] [address] [place] [address] Arely Hernández, MANAGER COMMERCIAL 04/05/2024 Treatment [facility] [address] [place] [address] Arely Hernández, MANAGER COMMERCIAL 04/03/2024 Orders Only [facility] [address] [address] Car Mcdonald MD 04/01/2024 Treatment [facility] [address] [place] [address] Malcolm Taylor MD 03/29/2024 Orders Only [facility] [address] [address] Car Mcdonald MD 03/15/2024 Treatment [facility], [address] [place] [address] Malcolm Taylor MD from Last 3 Months Immunizations Name [...] 04/19/2024 HEMATOLOGY Routine 04/03/2024 HEMATOLOGY Routine 03/29/2024 SPECIAL CHEMISTRY Routine 03/08/2024 from Last 3 Months or Most Recently Relevant to Health Maintenance Results * (ABNORMAL) HD KINETICS (05/01/2024) Only the most recent of3 resultswithin the time period is included. % Urea Reduction 59(L) 65 - 80 % [facility] 05/01/2024 05/02/2024 8:3 0 AM EST Narrative Resulting Agency Comment Specimen source: Plasma Car Mcdonald MD LAB BLOOD ORDERABLES Final Re sul Performing Organization Address [facility] de Phone Number [facility] See order comments or contact performing lab Unknown, [place] * (ABNORMAL) POST CHEMISTRY (05/01/2024) Only the most recent of3 resultswithin the time period is included. BUN Post Dialysis 36(H) 6 - 19 mg/dL [facility] 05/01/2024 05/02/2024 8:3 0 AM EST Narrative [facility] - 05/02/2024 Unless otherwise specified, test(s) performed at: [facility], [address] [place] [id number] SPANISH LECTURER: Homero Garcia M.D. For any questions, please call customer service at FREQUENCY:OTHER Resulting Agency Comment Specimen source: Plasma Car Mcdonald MD LAB BLOOD ORDERABLES Final Re sul Performing Organization Address City/[facility] Co de Phone Number [facility] See order comments or contact performing lab Unknown, [place] * (ABNORMAL) HEMATOLOGY (05/01/2024) Only the most recent of5 resultswithin the time period is included. Hemoglobin 9.1(L) 14.0 - 18.0 g/dL [facility] Hemoglobin x 3 27.3(L) 42.0 - 54.0 % [facility] 05/01/2024 05/02/2024 8:3 7 AM EST Narrative [facility] - 05/02/2024 Unless otherwise specified, test(s) performed at: [facility], [address] [place], [place] [id number] SPANISH LECTURER: Homero Garcia M.D. For any questions, please call customer service at FREQUENCY:OTHER Resulting Agency Comment Specimen source: Blood Car Mcdonald MD LAB BLOOD ORDERABLES Final Re sult Performing Organization Address [facility] Co de Phone Number [email or web address] See order comments or contact performing lab Unknown, [place] * (ABNORMAL) [facility] Chemistry (05/01/2024) Only the most recent of5 resultswithin the time period is included. BUN 88(H) 6 - 19 mg/dL [facility] 05/01/2024 05/02/2024 8:5 4 AM EST Narrative [facility] - 05/02/2024 Unless otherwise specified, test(s) performed at: [facility], [address] [place], [place] [phone] SPANISH LECTURER: Homero Garcia M.D. For any questions, please call customer service at FREQUENCY:OTHER Resulting Agency Comment Specimen source: Serum Car Mcdonald MD LAB BLOOD ORDERABLES Final Re sult Performing Organization Address [facility]/ZIP Co de Phone Number [email or web address] See order comments or contact performing lab Unknown, [place] * [facility] Results (05/01/2024) Only the most recent of3 resultswithin the time period is included. eKt/V (Tattersall) 0.87 [facility] eKdrt/V 0.85 [facility] eNPCR 1.07 [facility] spKt/V Gotch 1.[address] [facility] PCR 74.63 [facility] nPCR_HD 1.23 [facility] eKt/V Gotch 0.85 [facility] spKt/V (Daugirdas II) 1.10 [facility] WSTDKT/V 2.0 [facility] 05/01/2024 05/01/[address] [facility] Ordering Provider LAB BLOOD ORDERABLES Final Result [facility] Contact Performing lab Unknown, [place] * IMMUNO CHEMISTRY (04/19/2024) Hep B Surface Ag Negative Negative [facility] 04/19/2024 04/20/2024 12: 30 PM EST Narrative [facility] - 04/20/2024 Unless otherwise specified, test(s) performed at: [facility], [address] [place] [address] SPANISH LECTURER: Homero Garcia M.D. For any questions, please call customer service at FREQUENCY:MONTHLY Resulting Agency Comment Specimen source: Serum Car Mcdonald MD LAB BLOOD ORDERABLES Final Re sult [facility] See order comments or contact performing lab Unknown, [place] * (ABNORMAL) SPECIAL CHEMISTRY (03/08/2024) Pathologist [facility] Hemoglobin A1C 7.9(H) 4.8 - 5.9 % [facility] 03/08/2024 03/09/2024 10: 45 AM EST Narrative Resulting Agency Comment Specimen source: Blood Car Mcdonald MD LAB BLOOD BANK TEST ORDERABLE S Final Result [facility] See order comments or contact performing lab Unknown, [place] from Last 3 Months or Most Recently Relevant to Health Maintenance Insurance [place]ICAID [place] [employer]IC[place] Care Teams Lock Plater Relationship Specialty Start Date End Date Jade Lewis MD [address] [place] [phone] PCP - General Internal Medicine 04/25/22
--- OUTSIDE RECORDS SUMMARY | 2024-06-12 12:23 | XMS_ITS | Encounter Summary ---
Author Organization [facility], Address [address] [place] [address] Phone Care Team Providers Care Hog Operator Name Role Phone Jade Lewis MD Primary Care Provider + [phone] Reason for Visit * Reason Comments Med Refill Encounter Details Date Type Department Care Team ([facility] st Contact Info) Description 11/27/2020 Refill [facility] [address] [place] [phone] Alejandro Santana MD [address] [place] [phone] Social History Tobacco Use Types Packs/Day Years [...] on filedocumented in this encounter Care Teams Hog Operator Relationship Specialty Start Date End Date Jade Lewis MD [address] [place] [address] PCP - General Internal Medicine 04/25/22 documented as of this encounter
== END 2024-06-11 10:44 | disposition home or self-care (01) ==
LOC: HO.HOSX 10:43
PROVIDERS: Visit Provider Orthopaedic Surgery
DX: I96 Gangrene, not elsewhere classified (principal); I50.43 Acute on chronic combined systolic (congestive) and diastolic (congestive) heart failure; I73.9 Peripheral vascular disease, unspecified; N18.6 End stage renal disease; Z99.2 Dependence on renal dialysis; R20.0 Anesthesia of skin; R20.2 Paresthesia of skin; E11.9 Type 2 diabetes mellitus without complications
CPT/HCPCS: 73130; 99202

== ENCOUNTER 2024-06-18 13:16 | Outpatient (AMB) | payer MEDICARE, MEDICAID, SELFPAY ==
--- NOTE | 2024-06-18 13:21 | MHC.OFFVIS ---
Intake Visit Reasons: follow up R leg check s/p AKA Intake Note: Patient presents for follow up amp. He also has red spots on his leg that his son believes happened last week as well Accompanied by: Son Allergies Iodinated Contrast Media [Contrast Dye] Allergy (Severe, Verified 06/18/24 13:25) Facial Swelling hydralazine Adverse Reaction (Severe, Verified 06/18/24 13:25) vasculitis HPI HPI follow up R leg check s/p AKA: Details: Beau is presenting today for a follow up to debridement of the AKA site on 06/06/24. Beau appears very agitated today. We initially utilized his son as an train reservation clerk but his son had to leave, so we used Melody. The pt states he is very irritated with the sutures and everything about the amputation site. He denies any pain but states it is uncomfortable, pointing to the areas where the sutures are still in place. He has concerns that the site is not clean. [facility] Medical History (Updated 06/11/24 @ 09:59 by Rolando Mosqueda) Type 2 diabetes mellitus Dry gangrene PVD (peripheral vascular disease) ESRD needing dialysis Above knee amputation of right lower extremity Left ventricular systolic dysfunction (LVSD) Postop check Acute pericardial effusion Right sided weakness Dehiscence of wound Peripheral arterial disease Cellulitis of right foot Hypertension HFrEF (heart failure with reduced ejection fraction) ESRD (end stage renal disease) Chronic combined systolic and diastolic CHF (congestive heart failure) Chronic pericardial effusion Arthritis Asthma Restless leg syndrome Acute on chronic systolic and diastolic heart failure, NYHA class 3 Anemia ESRD (end stage renal disease) Occlusive thrombus Pulmonary edema ROBERT (obstructive sleep apnea) Hyperlipidemia Hypertension A-V fistula ESRD on dialysis Falling Surgical History Status post creation of pericardial window Postop check Hx of right BKA Status post transmetatarsal amputation of right foot History of transmetatarsal amputation of foot History of surgery H/O colonoscopy Recurrent pleural effusion Pleural effusion on right (07/13/23) Family History Father No problems noted. Mother No problems noted. 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 Review of Systems Const Reports as per HPI and Denies weakness ENT Reports Normal hearing present and Denies dizziness Card Reports as per HPI, Denies chest pain, Denies chest pain at rest, Denies chest pain with activity, Denies dyspnea and Denies dyspnea on exertion Resp Reports as per HPI, Denies cough, Denies dyspnea and Denies dyspnea on exertion GI Reports as per HPI, Denies abdominal pain, Denies nausea and Denies vomiting Musc Denies numbness Skin/Breast Reports as per HPI, Denies erythema and Denies wounds Neuro Reports Normal hearing present, Denies dizziness, Denies numbness, Denies Sensory deficit (Neuro) and Denies weakness Psych Reports no additional complaints Endo Reports no additional complaints Physical Exam Const General: healthy appearing and no acute distress Orientation/consciousness: patient oriented x3 HEENT Head: Yes normal to inspection Ears: hearing grossly normal bilaterally Mouth: Normal oral and palatal mucosa present Resp Effort & Inspection: normal respiratory effort and able to speak in complete sentences Auscultation: clear to auscultation bilaterally Cardio Jugular venous distension: no JVD Rate: regular rate Rhythm: regular rhythm Heart sounds: S1 normal heart sound present and S2 normal heart sound present Bruits: no abdominal aortic bruits, no carotid bruits, no femoral bruits and no renal bruits Peripheral pulses: Peripheral pulses 2+ throughout GI Inspection: Yes normal to inspection Palpation (GI): No Abdominal aortic bruit present Skin General skin exam: no rashes or lesions noted Wounds: no wounds Hair: normal Neuro General: patient oriented x3 Cranial nerves: Yes Normal hearing present Cognition (Neuro): normal cognition Gait exam (Neuro): Normal gait present Motor exam (neuro): 5/5 motor strength present throughout Sensory Exam: No Sensory deficit (Neuro) Extrem Other: Right AKA site: sutures in place on the medial aspect, which has some dry eschar and scabbing noted. The lateral aspect has yellow slough in the open area of the debridement area, easily removed with forceps and scissors. There is beefy red and slight bleeding underneath the slough. General: Yes normal to inspection, Yes full ROM, Yes capillary refill normal and Yes normal gait Assessment & Plan Assessment & Plan (1) AKA stump complication: Code(s): T87.9 - Unspecified complications of amputation stump Category: Medical Plan: Beau is presenting today for a one week follow up s/p in office debridement of the right AKA stump on 06/[address] Cannon. The pt is very irritated today and did not tolerate the debridement of the slough well. He was very upset when we wouldn't clean the wound. He did not want us to cover the wound after the debridement. He stated he wanted to go to the ER, where they would put him to sleep to clean it. We discussed that they would not be able to do it there and that he will be fine, we cleaned the slough out and will wrap it to keep it clean. The pt wanted to leave without the wrap; however, Melody was able to talk with him to let me wrap it up prior to him leaving. We will have the pt follow up with us in 2 weeks. The pt stated that he would like to go somewhere else. We discussed the importance of consistent follow up care. If there are any questions or concerns, please do not hesitate to reach out to us. Coding Level of Care Code Est Pt Level 4 (52589) Diagnoses AKA stump complication T87.9
--- OUTSIDE RECORDS SUMMARY | 2024-06-18 16:11 | XMS_ITS | Encounter Summary ---
Author Organization [facility] Address [address] [facility] [address] [place] [address] Phone Care Team Providers Care Teachers Aide Name Role Phone Jade Lewis MD Primary Care Provider + [phone] Reason for Visit * Reason Onset Date Comments Med Refill 04/19/2022 Encounter Details Date Type Department Care Team (Late st Contact Info) Description 04/19/2022 Refill [facility] [address] [place] [id number] Loiad Madsen Social History Tobacco Use Types Packs/Day [...] on filedocumented in this encounter Care Teams Teachers Aide Relationship Specialty Start Date End Date Jade Lewis MD [address] [place] [id number] PCP - General Internal Medicine 04/25/22 documented as of this encounter
--- OUTSIDE RECORDS SUMMARY | 2024-06-18 16:11 | XMS_ITS | Clinical Summary ---
Author Organization [facility] Address [address] [place] [address] [address] [place] [address] Care Team Providers Care Mold Injector Name Role Phone Unavailable Primary Care Provider [...]
--- OUTSIDE RECORDS SUMMARY | 2024-06-18 16:11 | XMS_ITS | Clinical Summary ---
Author Organization [facility] Address [address] [place] [address] Phone Care Team Providers Care Beef Pusher Name Role Phone Cass Turcios MD Primary Care Provider [phone] Allergies No known active allergies Medications Ventolin [...] Department Care Team Description 06/06/2024 Lab Requisition [facility] [address] [place] [address] Laurence Florence MD Cellulitis of right lower limb; End stage renal disease ([facility] V24, [facility] V28) 05/31/2024 Lab Requisition [facility] [address] [facility] [place] [address] Laurence Florence MD End stage renal disease ([facility] V24, [facility] V28); Anemia, unspecified 05/30/2024 Lab Requisition [facility] [address] [place] [address] Laurence Florence MD Chronic respiratory failure with hypoxia ([facility] V24, [facility] V28); Encounter for orthopedic aftercare following surgical amputation; Encounter for surgical aftercare following surgery on the circulatory system; Peripheral vascular disease, unspecified ([facility] V24) 05/30/2024 Lab Requisition [facility] [address] [place] [phone] Laurence Florence MD Chronic respiratory failure with hypoxia ([facility] V24, [facility] V28); Encounter for orthopedic aftercare following surgical amputation; Encounter for surgical aftercare following surgery on the circulatory system; Peripheral vascular disease, unspecified ([facility] V24) 05/28/2024 Lab Requisition [facility] [address] [place] [phone] Laurence Florence MD Anemia, unspecified; End stage renal disease ([facility] V24, [facility] V28); Unspecified asthma, uncomplicated 05/24/2024 Lab Requisition [facility] [address] [place] [phone] Laurence Florence MD Chronic combined systolic (congestive) and diastolic (congestive) heart failure ([facility] V24, [facility] V28); Type 2 diabetes mellitus without complications ([facility] V24, [facility] V28); End stage renal disease ([facility] V24, [facility] V28) 05/21/2024 Lab Requisition [facility] [address] [place] [phone] Laurence Florence MD Chronic combined systolic (congestive) and diastolic (congestive) heart failure ([facility] V24, [facility] V28); End stage renal disease ([facility] V24, [facility] V28) 05/20/2024 Lab Requisition [facility] [address] [place] [phone] Laurence Florence MD Elevated white blood cell count, unspecified 05/18/2024 Lab Requisition [facility] [address] [place] [phone] Elsy Christina PA Unspecified systolic (congestive) heart failure ([facility] V24, [facility] V28); Type 2 diabetes mellitus without complications ([facility] V24, [facility] V28); End stage renal disease ([facility] V24, [facility] V28) 05/17/2024 Lab Requisition [facility] [address] [place] [address] Laurence Florence MD Type 2 diabetes mellitus without complications ([facility] V24, [facility] V28); End stage renal disease ([facility] V24, [facility] V28) 04/02/2024 Lab Requisition [facility] [address] [place] [address] Cass Turcios MD End stage renal disease ([facility] V24, [facility] V28) 03/25/2024 7:29 AM EST - 03/27/2024 6:55 PM EST Hospital Encounter [facility] [address] [place] [phone] Noman Conteh MD Bukalo, Nermina, MD Japaridze, Anna, MD Acute kidney injury superimposed on chronic kidney disease ([facility] V24) (Primary Dx); Hyperkalemia; Urinary tract infection without hematuria, site unspecified Discharge Disposition: [facility] Facility 03/25/2024 Lab Requisition [facility] [address] [place] [address] Cass Turcios MD Anemia, unspecified; Chronic diastolic (congestive) heart failure ([facility] V24, [facility] V28); Other pericardial effusion (noninflammatory); End stage renal disease ([facility] V24, [facility] V28) from Last 3 Months Surgical History Surgery Date Site/Laterality Comments TOE AMPUTATION IR DIALYSIS CATH INSERT VASCULAR ACCESS Medical History Medical History Date Comments ESRD (end stage renal disease) on dialysis ([facility] V24, [facility] V28) MWF Hypertension Hyperlipidemia Gouty arthritis Diabetes mellitus ([facility] V24, [facility] V28) GERD (gastroesophageal reflux disease) COPD (chronic obstructive pulmonary disease) ([facility] S/HCC V24, [facility] V28) Social History Tobacco Use Types Packs/Day Years [...] lower limb End stage renal disease (CMS/HCC) COMPLETE BLOOD COUNT Routine 06/06/2024 5:35 AM EDT Cellulitis of right lower limb End stage renal disease (CMS/HCC) CBC WITH AUTO DIFFERENTIAL Routine 05/31/2024 6:09 AM EDT End stage renal disease (CMS/HCC) Anemia, unspecified BASIC METABOLIC PANEL Routine 05/31/2024 6:09 AM EDT End stage renal disease (CMS/HCC) Anemia, unspecified CBC AND DIFFERENTIAL Routine 05/31/2024 6:09 AM EDT End stage renal disease (CMS/HCC) Anemia, unspecified CULTURE BLOOD Routine 05/30/2024 7:41 [...] K/mcL LAB HEMETOLOGY METHOD 06/06/2024 8:35 AM [facility] RBC 3.20(L) 4.50 - 5.50 M/mcL LAB HEMETOLOGY METHOD 06/06/2024 8:35 AM [facility] Hemoglobin 7.6(L) 13.5 - 17.5 g/dL LAB HEMETOLOGY METHOD 06/06/2024 8:35 AM [facility] Hematocrit 26.2(L) 42.0 - 54.0 % LAB HEMETOLOGY METHOD 06/06/2024 8:35 AM [facility] MCV 80.9 79.0 - 98.0 FL LAB HEMETOLOGY METHOD 06/06/2024 8:35 AM [facility] MCH 23.5(L) 27.0 - 32.0 pcg LAB HEMETOLOGY METHOD 06/06/2024 8:35 AM EDT [facility] MCHC 29.0(L) 32.0 - 37.0 g/dL LAB HEMETOLOGY METHOD 06/06/2024 8:35 AM EDT [facility] RDW 16.8(H) 11.0 - 15.0 % LAB HEMETOLOGY METHOD 06/06/2024 8:35 AM EDT [facility] Platelets 264 130 - 400 K/mcL LAB HEMETOLOGY METHOD 06/06/2024 8:35 AM EDT [facility] MPV 12.3(H) 7.0 - 11.0 FL LAB HEMETOLOGY METHOD 06/06/2024 8:35 AM EDT [facility] NRBC 0.0 <1.0 % LAB HEMETOLOGY METHOD 06/06/2024 8:35 AM EDT [facility] LAB NRBC Absolute 0.00 <0.10 K/mcL LAB HEMETOLOGY METHOD 06/06/2024 8:35 AM EDT [facility] Blood Venous blood specimen / Unknown Venipuncture / Unknown 06/06/2024 5:35 AM EDT 06/06/2024 8:10 AM EDT us Laurence Florence MD LAB BLOOD ORDERABLES Final Resu lt [facility] [address] [place] [address], [place] [phone] * (ABNORMAL) Basic metabolic panel (06/06/2024 5:35 AM EDT) Only the most recent of11 resultswithin the time period is included. Sodium 139 133 - 145 mmol/L LAB CHEMISTRY METHOD 06/06/2024 8:59 AM EDT [facility] Potassium 4.3 3.5 - 5.5 mmol/L LAB CHEMISTRY METHOD 06/06/2024 8:59 AM [facility] Chloride 106 96 - 110 mmol/L LAB CHEMISTRY METHOD 06/06/2024 8:59 AM [facility] CO2 27 21 - 32 mmol/L LAB CHEMISTRY METHOD 06/06/2024 8:59 AM [facility] Anion Gap 6 3 - 11 LAB CHEMISTRY METHOD 06/06/2024 8:59 AM [facility] Glucose 162(H) 70 - 100 mg/dL LAB CHEMISTRY METHOD 06/06/2024 8:59 AM [facility] BUN 28(H) 5 - 25 mg/dL LAB CHEMISTRY METHOD 06/06/2024 8:59 AM [facility] Creatinine 3.78(H) 0.70 - 1.30 mg/dL LAB CHEMISTRY METHOD 06/06/2024 8:59 AM [facility] eGFR 17(L) >=60 mL/min/1. 73m2 LAB CHEMISTRY METHOD 06/06/2024 8:59 AM [facility] Comment:Calculation based on the??Chronic Kidney Disease Epidemiology Collaboration (CKD-EPI) equation refit??without adjustment for race. BUN/Creatinine Ratio 7.4 LAB CHEMISTRY METHOD 06/06/2024 8:59 AM [facility] Calcium 9.1 8.5 - 10.5 mg/dL LAB CHEMISTRY METHOD 06/06/2024 8:59 AM [facility] Blood Venous blood specimen / Unknown Venipuncture / Unknown 06/06/2024 5:35 AM EDT 06/06/2024 8:10 AM EDT us Laurence Florence MD LAB BLOOD ORDERABLES Final Resu lt [facility] [address] [place] [address], * (ABNORMAL) CBC auto differential (05/31/2024 6:09 AM EDT) Only the most recent of6 resultswithin the time period is included. WBC 10.9(H) 4.8 - 10.8 K/mcL LAB HEMETOLOGY METHOD 05/31/2024 10:13 AM [facility] RBC 3.20(L) 4.50 - 5.50 M/mcL LAB HEMETOLOGY METHOD 05/31/2024 10:13 AM [facility] Hemoglobin 7.7(L) 13.5 - 17.5 g/dL LAB HEMETOLOGY METHOD 05/31/2024 10:13 AM [facility] Hematocrit 26.1(L) 42.0 - 54.0 % LAB HEMETOLOGY METHOD 05/31/2024 10:13 AM [facility] MCV 81.8 79.0 - 98.0 FL LAB HEMETOLOGY METHOD 05/31/2024 10:13 AM [facility] MCH 24.1(L) 27.0 - 32.0 pcg LAB HEMETOLOGY METHOD 05/31/2024 10:13 AM [facility] MCHC 29.5(L) 32.0 - 37.0 g/dL LAB HEMETOLOGY METHOD 05/31/2024 10:13 AM [facility] RDW 17.8(H) 11.0 - 15.0 % LAB HEMETOLOGY METHOD 05/31/2024 10:13 AM [facility] Platelets 227 130 - 400 K/mcL LAB HEMETOLOGY METHOD 05/31/2024 10:13 AM [facility] MPV 10.6 7.0 - 11.0 FL LAB HEMETOLOGY METHOD 05/31/2024 10:13 AM [facility] NRBC 0.0 <1.0 % LAB HEMETOLOGY METHOD 05/31/2024 10:13 AM [facility] NRBC Absolute 0.00 <0.10 K/mcL LAB HEMETOLOGY METHOD 05/31/2024 10:13 AM [facility] Neutrophils Relative 69.5 % LAB HEMETOLOGY METHOD 05/31/2024 10:13 AM [facility] Lymphocytes Relative 19.2 % LAB HEMETOLOGY METHOD 05/31/2024 10:13 AM [facility] Monocytes Relative 8.4 % LAB HEMETOLOGY METHOD 05/31/2024 10:13 AM [facility] Eosinophils Relative 1.8 % LAB HEMETOLOGY METHOD 05/31/2024 10:13 AM [facility] Basophils Relative 0.5 % LAB HEMETOLOGY METHOD 05/31/2024 10:13 AM [facility] Immature Granulocytes Relative 0.6 % LAB HEMETOLOGY METHOD 05/31/2024 10:13 AM [facility] Neutrophils Absolute 7.60(H) 1.50 - 7.00 K/mcL LAB HEMETOLOGY METHOD 05/31/2024 10:13 AM [facility] Lymphocytes Absolute 2.10 1.00 - 5.00 K/mcL LAB HEMETOLOGY METHOD 05/31/2024 10:13 AM [facility] Monocytes Absolute 0.92 0.20 - 1.00 K/mcL LAB HEMETOLOGY METHOD 05/31/2024 10:13 AM [facility] Eosinophils Absolute 0.20 0.00 - 0.50 K/mcL LAB HEMETOLOGY METHOD 05/31/2024 10:13 AM [facility] Basophils Absolute 0.05 0.00 - 0.20 K/mcL LAB HEMETOLOGY METHOD 05/31/2024 10:13 AM EDT [facility] Immature Granulocytes Absolute 0.07(H) 0.00 - 0.03 K/mcL LAB HEMETOLOGY METHOD 05/31/2024 10:13 AM EDT [facility] Blood Venous blood specimen / Unknown Venipuncture / Unknown 05/31/2024 6:09 AM EDT 05/31/2024 9:24 AM EDT us Laurence Florence MD LAB BLOOD ORDERABLES Final Resu lt Performing Organization Address [facility]/ZIP Co de Phone Number [facility] [address] [place] [address], [place] [phone] * Culture blood (05/30/2024 7:41 AM EDT) Only the most recent of3 resultswithin the time period is included. Culture, Blood No growth at 5 days LAB MICROBIOLOGY METHOD 06/04/2024 9:01 AM EDT [facility] Blood Venipuncture / Unknown 05/30/2024 7:41 AM EDT 05/30/2024 8:14 AM EDT us Laurence Florence MD LAB MICROBIOLOGY - GENERAL ORDE RABLES Final Result Performing Organization Address [facility]/ZIP Co de Phone Number [facility] [address] [place] [address], [place] [phone] * (ABNORMAL) Sedimentation rate (05/30/2024 7:36 AM EDT) Sed Rate >130(H) 0 - 20 mm/hr LAB HEMETOLOGY METHOD 05/30/2024 8:57 AM EDT [facility] Blood Venous blood specimen / Unknown Venipuncture / Unknown 05/30/2024 7:36 AM EDT 05/30/2024 8:11 AM EDT Narrative [facility] - 05/30/2024 8:57 AM EDT Rechecked. us Laurence Florence MD LAB BLOOD ORDERABLES Final Resu lt Performing Organization Address [facility] Co de Phone Number [facility] [address] [place] [address], [place] [phone] * (ABNORMAL) C-reactive protein (05/30/2024 7:36 AM EDT) [facility] C-Reactive Protein 11.60(H) <=0.50 mg/dL LAB CHEMISTRY METHOD 05/30/2024 8:51 AM EDT [facility] Blood Venous blood specimen / Unknown Venipuncture / Unknown 05/30/2024 7:36 AM EDT 05/30/2024 8:11 AM EDT us Laurence Florence MD LAB BLOOD ORDERABLES Final Resu lt Performing Organization Address [facility] de Phone Number [facility] [address] [place] [address], [place] [phone] * Lactate (05/30/2024 7:36 AM EDT) [facility] Lactate 0.6 0.4 - 2.0 mmol/L LAB CHEMISTRY METHOD 05/30/2024 8:47 AM EDT [facility] Blood Venous blood specimen / Unknown Venipuncture / Unknown 05/30/2024 7:36 AM EDT 05/30/2024 8:11 AM EDT us Laurence Florence MD LAB BLOOD ORDERABLES Final Resu lt Performing Organization Address City/[facility]/ZIP Co de Phone Number [facility] [address] [place] [address], [place] [phone] * (ABNORMAL) Comprehensive metabolic panel (05/30/2024 7:36 [...] LAB CHEMISTRY METHOD 05/30/2024 9:08 AM EDT [facility] Alkaline Phosphatase 141(H) 42 - 121 unit/L LAB CHEMISTRY METHOD 05/30/2024 9:08 AM EDT [facility] Total Protein 6.3 6.0 - 8.0 g/dL LAB CHEMISTRY METHOD 05/30/2024 9:08 AM EDT [facility] Albumin 2.5(L) 3.2 - 5.0 g/dL LAB CHEMISTRY METHOD 05/30/2024 9:08 AM EDT [facility] Total Bilirubin 0.5 0.0 - 1.4 mg/dL LAB CHEMISTRY METHOD 05/30/2024 9:08 AM EDT [facility] Blood Venous blood specimen / Unknown Venipuncture / Unknown 05/30/2024 7:36 AM EDT 05/30/2024 8:11 AM EDT us Laurence Florence MD LAB BLOOD ORDERABLES Final Resu lt [facility] [address] [place] [address], [place] [phone] * (ABNORMAL) Magnesium (05/29/2024 5:09 AM EDT) Only the most recent of3 resultswithin the time period is included. Magnesium 1.8(L) 1.9 - 2.6 mg/dL LAB CHEMISTRY METHOD 05/29/2024 9:20 AM EDT [facility] Blood Venous blood specimen / Unknown Venipuncture / Unknown 05/29/2024 5:09 AM EDT 05/29/2024 8:42 AM EDT us Laurence Florence MD LAB BLOOD ORDERABLES Final Resu lt [facility] [address] [place] [address], [place] [phone] * (ABNORMAL) Renal function panel (05/29/2024 5:09 AM EDT) Sodium 135 133 - 145 mmol/L LAB CHEMISTRY METHOD 05/29/2024 10:03 AM [facility] Potassium 4.7 3.5 - 5.5 mmol/L LAB CHEMISTRY METHOD 05/29/2024 10:03 AM [facility] Chloride 99 96 - 110 mmol/L LAB CHEMISTRY METHOD 05/29/2024 10:03 AM [facility] CO2 27 21 - 32 mmol/L LAB CHEMISTRY METHOD 05/29/2024 10:03 AM [facility] Anion Gap 9 3 - 11 LAB CHEMISTRY METHOD 05/29/2024 10:03 AM [facility] Glucose 22(LL) 70 - 100 mg/dL LAB CHEMISTRY METHOD 05/29/2024 10:03 AM [facility] BUN 60(H) 5 - 25 mg/dL LAB CHEMISTRY METHOD 05/29/2024 10:03 AM [facility] Creatinine 7.71(H) 0.70 - 1.30 mg/dL LAB CHEMISTRY METHOD 05/29/2024 10:03 AM [facility] eGFR 7(L) >=60 mL/min/1. 73m2 LAB CHEMISTRY METHOD 05/29/2024 10:03 AM [facility] Comment:Calculation based on the??Chronic Kidney Disease Epidemiology Collaboration (CKD-EPI) equation refit??without adjustment for race. BUN/Creatinine Ratio 7.8 LAB CHEMISTRY METHOD 05/29/2024 10:03 AM [facility] Albumin 2.4(L) 3.2 - 5.0 g/dL LAB CHEMISTRY METHOD 05/29/2024 10:03 AM [facility] Calcium 8.7 8.5 - 10.5 mg/dL LAB CHEMISTRY METHOD 05/29/2024 10:03 AM EDT [facility] Phosphorus 4.7(H) 2.5 - 4.5 mg/dL LAB CHEMISTRY METHOD 05/29/2024 10:03 AM EDT [facility] Blood Venous blood specimen / Unknown Venipuncture / Unknown 05/29/2024 5:09 AM EDT 05/29/2024 8:42 AM EDT Laurence Florence MD LAB BLOOD ORDERABLES Final Resu lt Performing Organization Address [facility]/ZIP Co de Phone Number [facility] [address] [place] [address], * (ABNORMAL) Hemoglobin A1c (05/18/2024 7:20 AM EDT) Only the most recent of2 resultswithin the time period is included. Hemoglobin A1C 7.2(H) <6.5 % LAB CHEMISTRY METHOD 05/19/2024 12:06 PM EDT [facility] Mean Bld Glu Estim. 160 mg/dL LAB CHEMISTRY METHOD 05/19/2024 12:06 PM EDT [facility] Blood Venous blood specimen / Unknown Venipuncture / Unknown 05/18/2024 7:20 AM EDT 05/18/2024 9:58 AM EDT Elsy MONTERO LAB BLOOD ORDERABLES Final Re sult Performing Organization Address City/[facility]/ZIP Co de Phone Number [facility] [address] [place] [address], [place] [phone] * (ABNORMAL) POCT Glucose, blood (03/27/2024 4:55 PM EST) Only the most recent of10 resultswithin the time period is included. Glucose POCT 276(H) 70 - 100 mg/dL 03/27/2024 4:56 PM EST [facility] Blood Capillary blood specimen / Unknown 03/27/2024 4:55 PM EST 03/27/2024 4:57 PM EST Marion Hernandez MD LAB POINT OF CARE TE ST DOCKED DEVICE UNSOLICITED RESULTS Final Result Performing Organization Address [facility]/ZIP Co de Phone Number [facility] [address] [place] [address], [place] [phone] * Lavender tube (03/26/2024 6:50 AM EST) [facility] Extra Tube Hold for add-ons. 03/26/2024 9:01 AM EST [facility] Comment:Auto resulted. Blood Venous blood specimen / Unknown 03/26/2024 6:50 AM EST 03/26/2024 7:01 AM EST Marion Hernandez MD LAB BLOOD ORDERABLES Final Res ult Performing Organization Address City/[facility]/ZIP Co de Phone Number [facility] [address] [place] [address], [place] [phone] * Respiratory virus panel molecular study (03/25/2024 6:49 PM EST) [facility] Adenovirus Detection by PCR Not Detected Not Detected LAB MICROBIOLOGY METHOD 03/25/2024 8:14 PM [facility] Influenza A PCR Not Detected Not Detected LAB MICROBIOLOGY METHOD 03/25/2024 8:14 PM [facility] Influenza B PCR Not Detected Not Detected LAB MICROBIOLOGY METHOD 03/25/2024 8:14 PM [facility] Coronavirus 229E Not Detected Not Detected LAB MICROBIOLOGY METHOD 03/25/2024 8:14 PM [facility] Coronavirus HKU1 Not Detected Not Detected LAB MICROBIOLOGY METHOD 03/25/2024 8:14 PM [facility] Coronavirus OC43 Not Detected Not Detected LAB MICROBIOLOGY METHOD 03/25/2024 8:14 PM [facility] Coronavirus NL63 Not Detected Not Detected LAB MICROBIOLOGY METHOD 03/25/2024 8:14 PM [facility] Parainfluenza Virus 1 Not Detected Not Detected LAB MICROBIOLOGY METHOD 03/25/2024 8:14 PM [facility] Parainfluenza Virus 2 Not Detected Not Detected LAB MICROBIOLOGY METHOD 03/25/2024 8:14 PM [facility] Parainfluenza Virus 3 Not Detected Not Detected LAB MICROBIOLOGY METHOD 03/25/2024 8:14 PM [facility] Parainfluenza Virus 4 Not Detected Not Detected LAB MICROBIOLOGY METHOD 03/25/2024 8:14 PM [facility] RSV PCR Not Detected Not Detected LAB MICROBIOLOGY METHOD 03/25/2024 8:14 PM [facility] Human Metapneumovirus A and B Not Detected Not Detected LAB MICROBIOLOGY METHOD 03/25/2024 8:14 PM [facility] Rhinovirus/Entero virus Not Detected Not Detected LAB MICROBIOLOGY METHOD 03/25/2024 8:14 PM [facility] Bordetella pertussis Not Detected Not Detected LAB MICROBIOLOGY METHOD 03/25/2024 8:14 PM [facility] Bordetella parapertussis Not Detected Not Detected LAB MICROBIOLOGY METHOD 03/25/2024 8:14 PM [facility] Mycoplasma pneumo by PCR Not Detected Not Detected LAB MICROBIOLOGY METHOD 03/25/2024 8:14 PM [facility] Chlamydia pneumoniae Not Detected Not Detected LAB MICROBIOLOGY METHOD 03/25/2024 8:14 PM [facility] SARS COV-2 Not Detected Not Detected LAB MICROBIOLOGY METHOD 03/25/2024 8:14 PM [facility] Swab Both anterior nares / Unknown Non-blood Collection / Unknown 03/25/2024 6:49 PM EST 03/25/2024 6:59 PM EST Narrative [facility] - 03/25/2024 8:14 PM EST Testing was performed using the [employer] Respiratory Pathogen PCR Assay. All results must [...] us Radha MONTERO LAB MICROBIOLOGY - GENERAL ORDE RABLES Final Result Performing Organization Address City/[facility]/ZIP Co de Phone Number [facility] [address] [place] [address], [place] [phone] * Ethanol (03/25/2024 12:01 PM EST) [facility] Ethanol Level <3 0 - 10 mg/dL LAB CHEMISTRY METHOD 03/25/2024 1:57 PM [facility] Blood Venous blood specimen / Unknown Venipuncture / Unknown 03/25/2024 12:01 PM EST 03/25/2024 12:20 PM EST Radha MONTERO LAB BLOOD ORDERABLES Final Resu lt Performing Organization Address [facility]/ZIP Co de Phone Number [facility] [address] [place] [address], [place] [phone] * (ABNORMAL) Urinalysis with reflex microscopic and culture (03/25/2024 8:26 AM EST) Specific Warner Urine 1.015 1.003 - 1.030 LAB URINALYSIS [...] MD LAB URINE ORDERABLES Monse l Result [facility] [address] [place] [address], [place] [phone] * Lindsey urine culture tube (03/25/2024 8:26 AM EST) Pathologist [facility] Extra Tube Hold for add-ons. 03/25/2024 10:01 AM EST [facility] Comment:Auto resulted. Urine Urine specimen obtained by clean catch procedure / Unknown Non-blood Collection / Unknown 03/25/2024 8:26 AM EST 03/25/2024 8:54 AM EST us Noman Conteh MD LAB URINE ORDERABLES Monse l Result Performing Organization Address [facility]/ZIP Co de Phone Number [facility] [address] [place] [address], [place] [phone] * Culture urine (03/25/2024 8:26 AM EST) Pathologist [facility] Culture, Urine No growth 03/26/2024 10:25 AM EST [facility] Urine Urine specimen obtained by clean catch procedure / Unknown Non-blood Collection / Unknown 03/25/2024 8:26 AM EST 03/25/2024 9:54 AM EST us Noman Conteh MD LAB MICROBIOLOGY - GENERA L ORDERABLES Final Result Performing Organization Address City/[facility]/ZIP Co de Phone Number [facility] [address] [place] [address], [place] [phone] * Hepatitis B surface antigen with reflex to confirmation (03/25/2024 8:17 AM EST) Hepatitis B Surface Ag Negative Negative LAB CHEMISTRY METHOD 03/25/2024 12:29 PM EST [facility] Blood Venous blood specimen / Unknown Venipuncture / Unknown 03/25/2024 8:17 AM EST 03/25/2024 8:57 AM EST [facility] - 03/25/2024 12:29 PM EST Over the counter supplements containing high doses of biotin may interfere with this assay. ??If interference is suspected, patients shoud be retested after refraining from biotin supplements for 72 hours. us Noman Conteh MD LAB BLOOD ORDERABLES Monse l Result Performing Organization Address [facility]/ZIP Co de Phone Number [facility] [address] [place] [address], * Hepatitis B surface antibody quantitative (03/25/2024 8:17 AM EST) [facility] Hepatitis B Surface Ab Negative Negative LAB CHEMISTRY METHOD 03/25/2024 12:18 PM EST [facility] Hepatitis B Surface Ab Quantitative 7.1 mIU/mL LAB CHEMISTRY METHOD 03/25/2024 12:18 PM EST [facility] Blood Venous blood specimen / Unknown Venipuncture / Unknown 03/25/2024 8:17 AM EST 03/25/2024 8:57 AM EST [facility] - 03/25/2024 12:18 PM EST >=10 mIU/mL is considered to be consistent with immunity. us Noman Conteh MD LAB BLOOD ORDERABLES Monse l Result Performing Organization Address City/[facility]/ZIP Co de Phone Number [facility] [address] [place] [address], [place] [phone] * (ABNORMAL) Venous blood gas (03/25/2024 8:17 [...] MD LAB BLOOD ORDERABLES Monse l Result [facility] [address] [place] [address], [place] [phone] * Ammonia (03/25/2024 8:17 AM EST) Ammonia 20 11 - 35 mcmol/L LAB CHEMISTRY METHOD 03/25/2024 9:17 AM [facility] Blood Venous blood specimen / Unknown Venipuncture / Unknown 03/25/2024 8:17 AM EST 03/25/2024 8:57 AM EST Noman Conteh MD LAB BLOOD ORDERABLES Monse l Result [facility] [address] [place] [address], [place] [phone] * ECG 12 lead (03/25/2024 7:58 AM EST) Ventricular Rate ECG 70 BPM GEMUSE Atrial Rate 70 BPM GEMUSE P-R Interval 174 ms GEMUSE QRS Duration 98 ms GEMUSE Q-T Interval 410 ms GEMUSE QTc 442 ms GEMUSE P Wave [place] 3 degrees GEMUSE R [place] 6 degrees GEMUSE T [place] 87 degrees GEMUSE ECG Interpretation Normal sinus [...] remains clear. Cardiomegaly, new since 08/10/2020. Code 77986 -------- FINAL REPORT -------- Dictated By: Daren Sol Dictated Date: 03/25/2024 08:45 ET Assigned Physician: Daren Sol Reviewed and Electronically Signed By: Daren Sol Signed Date: 03/25/2024 08:46 ET Workstation ID: [id number] Transcribed By: Self Edit Transcribed Date: 03/25/2024 [...] lung remains clear. Cardiomegaly, new since08/10/2020. 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
--- OUTSIDE RECORDS SUMMARY | 2024-06-18 16:11 | XMS_ITS | Encounter Summary ---
Author Organization [facility] Address [address] [place] [address] Care Team Providers Care Table Top Tile Setter Name Role Phone Cass Turcios MD Primary Care Provider [phone] Encounter Details Date Type Department Care Team (Late st Contact Info) Description 06/06/2024 Lab Requisition [facility] - Main Lab [address] [facility] [place] [address] Laurence Florence MD [address] [place] [address] Cellulitis of right lower limb; End stage renal disease (CMS/HCC V24, CMS/HCC V28) Social History Tobacco Use Types Packs/Day [...] care for your loved ones. For example, school child care attendant or elderly care for an older [...] mmol/L LAB CHEMISTRY METHOD 06/06/2024 8:59 AM [facility] Potassium 4.3 3.5 - 5.5 mmol/L LAB CHEMISTRY METHOD 06/06/2024 8:59 AM [facility] Chloride 106 96 - 110 mmol/L LAB CHEMISTRY METHOD 06/06/2024 8:59 AM [facility] CO2 27 21 - 32 mmol/L LAB CHEMISTRY METHOD 06/06/2024 8:59 AM [facility] Anion Gap 6 3 - 11 LAB CHEMISTRY METHOD 06/06/2024 8:59 AM [facility] Glucose 162(H) 70 - 100 mg/dL LAB CHEMISTRY METHOD 06/06/2024 8:59 AM [facility] BUN 28(H) 5 - 25 mg/dL LAB CHEMISTRY METHOD 06/06/2024 8:59 AM [facility] Creatinine 3.78(H) 0.70 - 1.30 mg/dL LAB CHEMISTRY METHOD 06/06/2024 8:59 AM [facility] eGFR 17(L) >=60 mL/min/1. 73m2 LAB CHEMISTRY METHOD 06/06/2024 8:59 AM [facility] Comment:Calculation based on the??Chronic Kidney Disease Epidemiology Collaboration (CKD-EPI) equation refit??without adjustment for race. BUN/Creatinine Ratio 7.4 LAB CHEMISTRY METHOD 06/06/2024 8:59 AM [facility] Calcium 9.1 8.5 - 10.5 mg/dL LAB CHEMISTRY METHOD 06/06/2024 8:59 AM [facility] Blood Venous blood specimen / Unknown Venipuncture / Unknown 06/06/2024 5:35 AM EDT 06/06/2024 8:10 AM EDT us Laurence Florence MD LAB BLOOD ORDERABLES Final Resu lt [facility] [address] [place] [address], [place] [phone] * (ABNORMAL) Complete blood count (06/06/2024 5:35 AM EDT) [facility] WBC 9.3 4.8 - 10.8 K/mcL [...] 06/06/2024 8:35 AM EDT [facility] MCH 23.5(L) 27.0 - [...] Final Resu lt [facility] [address] [place] [address], [place] [phone] documented in this encounter Visit Diagnoses Diagnosis Cellulitis of right lower limb End stage renal disease (CMS/HCC V24, CMS/HCC V28) End stage renal disease documented in this encounter Care Teams Table Top Tile Setter Relationship Specialty Start Date End Date Cass Turcios MD [address] [place] [address] [address] [place] [address] PCP - General Geriatric Medicine 04/02/24 documented as of this encounter
--- OUTSIDE RECORDS SUMMARY | 2024-06-18 16:12 | XMS_ITS | Encounter Summary ---
Author Organization [facility] Address [address] [place] [address] Care Team Providers Care Classroom Paraprofessional Name Role Phone Cass Turcios MD Primary Care Provider [phone] Encounter Details Date Type Department Care Team (Latest Contact Info) Description 05/17/2024 Lab Requisition [facility] - Main Lab [address] [facility] [place] [address] Laurence Florence MD [address] [place] [address] Type 2 diabetes mellitus without complications (CMS/HCC V24, CMS/HCC V28); End stage renal disease (CMS/HCC V24, CMS/HCC [...] your loved ones. For example, child care aide or elderly care for an older adult? [...] EDT Type 2 diabetes mellitus without complications ([facility]/HCC) End stage renal disease ([facility]) HEMOGLOBIN A1C Routine 05/17/2024 5:37 AM EDT Type 2 diabetes mellitus without complications (CMS/HCC) End stage renal disease ([facility]/HCC) BASIC METABOLIC PANEL Routine 05/17/2024 5:37 AM EDT Type 2 diabetes mellitus without complications ([facility]/HCC) End stage renal disease ([facility]/HCC) documented in this encounter Results * (ABNORMAL) Basic metabolic panel (05/17/2024 5:37 AM EDT) Sodium 135 133 - 145 mmol/L LAB CHEMISTRY METHOD 05/17/2024 11:32 AM [facility] Potassium 5.5 3.5 - 5.5 mmol/L LAB CHEMISTRY METHOD 05/17/2024 11:32 AM [facility] Chloride 95(L) 96 - 110 mmol/L LAB CHEMISTRY METHOD 05/17/2024 11:32 AM [facility] CO2 29 21 - 32 mmol/L LAB CHEMISTRY METHOD 05/17/2024 11:32 AM [facility] Anion Gap 11 3 - 11 LAB CHEMISTRY METHOD 05/17/2024 11:32 AM [facility] Glucose 173(H) 70 - 100 mg/dL LAB CHEMISTRY METHOD 05/17/2024 11:32 AM [facility] BUN 52(H) 5 - 25 mg/dL LAB CHEMISTRY METHOD 05/17/2024 11:32 AM [facility] Creatinine 7.48(H) 0.70 - 1.30 mg/dL LAB CHEMISTRY METHOD 05/17/2024 11:32 AM [facility] eGFR 7(L) >=60 mL/min/1. 73m2 LAB CHEMISTRY METHOD 05/17/2024 11:32 AM [facility] Comment:Calculation based on the??Chronic Kidney Disease Epidemiology Collaboration (CKD-EPI) equation refit??without adjustment for race. BUN/Creatinine Ratio 7.0 LAB CHEMISTRY METHOD 05/17/2024 11:32 AM EDT [facility] Calcium 9.0 8.5 - 10.5 mg/dL LAB CHEMISTRY METHOD 05/17/2024 11:32 AM EDT [facility] Blood Venous blood specimen / Unknown Venipuncture / Unknown 05/17/2024 5:37 AM EDT 05/17/2024 9:43 AM EDT us Laurence Florence MD LAB BLOOD ORDERABLES Final Resu lt Performing Organization Address [facility] de Phone Number [facility] [address] [place] [address], [place] [phone] * (ABNORMAL) Hemoglobin A1c (05/17/2024 5:37 AM EDT) Hemoglobin A1C 7.1(H) <6.5 % LAB CHEMISTRY METHOD 05/17/2024 1:30 PM EDT [facility] Mean Bld Glu Estim. 157 mg/dL LAB CHEMISTRY METHOD 05/17/2024 1:30 PM EDT [facility] Blood Venous blood specimen / Unknown Venipuncture / Unknown 05/17/2024 5:37 AM EDT 05/17/2024 9:43 AM EDT us Laurence Florence MD LAB BLOOD ORDERABLES Final Resu lt Performing Organization Address City/[facility]/ZIP Co de Phone Number [facility] [address] [place] [address], [place] [phone] * (ABNORMAL) Complete blood count (05/17/2024 5:37 AM EDT) WBC 16.6(H) 4.8 - 10.8 K/[facility] HEMETOLOGY METHOD 05/17/2024 10:40 AM EDT [facility] RBC 3.70(L) 4.50 - 5.50 M/[facility] HEMETOLOGY METHOD 05/17/2024 10:40 AM [facility] Hemoglobin 8.9(L) 13.5 - 17.5 g/dL LAB HEMETOLOGY METHOD 05/17/2024 10:40 AM [facility] Hematocrit 30.1(L) 42.0 - 54.0 % LAB HEMETOLOGY METHOD 05/17/2024 10:40 AM [facility] MCV 82.5 79.0 - 98.0 FL LAB HEMETOLOGY METHOD 05/17/2024 10:40 AM [facility] MCH 24.4(L) 27.0 - 32.0 pcg LAB HEMETOLOGY METHOD 05/17/2024 10:40 AM [facility] MCHC 29.6(L) 32.0 - 37.0 g/dL LAB HEMETOLOGY METHOD 05/17/2024 10:40 AM [facility] RDW 18.3(H) 11.0 - 15.0 % LAB HEMETOLOGY METHOD 05/17/2024 10:40 AM [facility] Platelets 431(H) 130 - 400 K/mcL LAB HEMETOLOGY METHOD 05/17/2024 10:40 AM [facility] MPV 10.6 7.0 - 11.0 FL LAB HEMETOLOGY METHOD 05/17/2024 10:40 AM [facility] NRBC 0.0 <1.0 % LAB HEMETOLOGY METHOD 05/17/2024 10:40 AM [facility] NRBC Absolute 0.00 <0.10 K/mcL LAB HEMETOLOGY METHOD 05/17/2024 10:40 AM [facility] Blood Venous blood specimen / Unknown Venipuncture / Unknown 05/17/2024 5:37 AM EDT 05/17/2024 9:43 AM EDT us Laurence Florence MD LAB BLOOD ORDERABLES Final Resu lt [facility] ([facility] [address] [place] [address], documented in this encounter Visit Diagnoses Diagnosis Type 2 diabetes mellitus without complications ([facility] V24, [facility] V28) End stage renal disease ([facility] V24, [facility] V28) End stage renal disease documented in this encounter Care Teams Classroom Paraprofessional Relationship Specialty Start Date End Date Cass Turcios MD [address] [facility] [address] [place] [address] PCP - General Geriatric Medicine 04/02/24 documented as of this encounter
--- OUTSIDE RECORDS SUMMARY | 2024-06-18 16:12 | XMS_ITS | Encounter Summary ---
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 For example, child support case officer or elderly care for an older [...] LAB MICROBIOLOGY METHOD 06/04/2024 9:01 AM EDT [facility] Blood Venipuncture / Unknown 05/30/2024 7:36 AM EDT 05/30/2024 8:11 AM EDT us Laurence Florence MD LAB MICROBIOLOGY - GENERAL MALAIKA HURD Final Result [facility] [address] [place] [address], [place] [phone] * Lactate (05/30/2024 7:36 AM EDT) [facility] Lactate 0.6 0.4 - 2.0 mmol/L LAB CHEMISTRY METHOD 05/30/2024 8:47 AM EDT [facility] Blood Venous blood specimen / Unknown Venipuncture / Unknown 05/30/2024 7:36 AM EDT 05/30/2024 8:11 AM EDT us Laurence Florence MD LAB BLOOD ORDERABLES Final Resu lt [facility] [address] [place] [address], [place] [phone] * (ABNORMAL) C-reactive protein (05/30/2024 7:36 AM EDT) [facility] C-Reactive Protein 11.60(H) <=0.50 mg/dL LAB CHEMISTRY METHOD 05/30/2024 8:51 AM EDT [facility] Blood Venous blood specimen / Unknown Venipuncture / Unknown 05/30/2024 7:36 AM EDT 05/30/2024 8:11 AM EDT us Laurence Florence MD LAB BLOOD ORDERABLES Final Resu lt [facility] [address] [place] [address], [place] [phone] * (ABNORMAL) Sedimentation rate (05/30/2024 7:36 AM EDT) [facility] Sed Rate >130(H) 0 - 20 mm/hr LAB HEMETOLOGY METHOD 05/30/2024 8:57 AM EDT [facility] Blood Venous blood specimen / Unknown Venipuncture / Unknown 05/30/2024 7:36 AM EDT 05/30/2024 8:11 AM EDT Narrative [facility] - 05/30/2024 8:57 AM EDT Rechecked. us Laurence Florence MD LAB BLOOD ORDERABLES Final Resu lt [facility] [address] [place] [address], [place] [phone] * (ABNORMAL) Comprehensive metabolic panel (05/30/2024 7:36 [...] 05/30/2024 9:08 AM [facility] Alkaline Phosphatase 141(H) 42 - 121 unit/L LAB CHEMISTRY METHOD 05/30/2024 9:08 AM [facility] Total Protein 6.3 6.0 - 8.0 g/dL LAB CHEMISTRY METHOD 05/30/2024 9:08 AM [facility] Albumin 2.5(L) 3.2 - 5.0 g/dL LAB CHEMISTRY METHOD 05/30/2024 9:08 AM [facility] Total Bilirubin 0.5 0.0 - 1.4 mg/dL LAB CHEMISTRY METHOD 05/30/2024 9:08 AM [facility] Blood Venous blood specimen / Unknown Venipuncture / Unknown 05/30/2024 7:36 AM EDT 05/30/2024 8:11 AM EDT us Laurence Florence MD LAB BLOOD ORDERABLES Final Resu lt [facility] [address] [place] [address], * (ABNORMAL) Complete blood count (05/30/2024 7:36 AM EDT) WBC 9.7 4.8 - 10.8 K/mcL LAB HEMETOLOGY METHOD 05/30/2024 8:29 AM EDT [facility] RBC 3.20(L) 4.50 - [...] MD LAB BLOOD ORDERABLES Final Resu lt [facility] ([facility] [address] [place] [address], documented in this encounter Visit Diagnoses Diagnosis Chronic respiratory failure with hypoxia (CMS/[facility] V24, CMS/[facility] V28) Encounter for orthopedic aftercare following surgical amputation Encounter for surgical aftercare following surgery on the circulatory system Peripheral vascular disease, unspecified ([facility] V24) Peripheral vascular disease, unspecified documented in this encounter Care Teams Track Liner Operator Relationship Specialty Start Date End Date Cass Turcios MD [address] [place] [address] [address] [place] [address] PCP - General Geriatric Medicine 04/02/24 documented as of this encounter
--- OUTSIDE RECORDS SUMMARY | 2024-06-18 16:12 | XMS_ITS | Encounter Summary ---
Author Organization [facility], Address [address] [place] [address] Phone Care Team Providers Care Guitar Maker Name Role Phone Jade Lewis MD Primary Care Provider [phone] Encounter Details Date Type Department Care Team (Late st Contact Info) Description 10/28/2019 Orders Only [facility] [address] [phone] [place] [address] [place] [phone] Social History Tobacco Use Types Packs/Day Years [...] filedocumented in this encounter Care Teams Guitar Maker Relationship Specialty Start Date End Date Jade Lewis MD [address] [place] [address] PCP - General Internal Medicine 04/25/22 documented as of this encounter
--- OUTSIDE RECORDS SUMMARY | 2024-06-18 16:12 | XMS_ITS | Encounter Summary ---
Author Organization [facility], Address [address] [place] [address] Phone Care Team Providers Care Procurement Assistant Name Role Phone Jade Lewis MD Primary Care Provider [phone] Reason for Visit * Reason Comments Med Refill Encounter Details Date Type Department Care Team (Late st Contact Info) Description 04/27/2019 Refill [facility] [address] [place] [address] Mercedes Law MD Social History [...] on filedocumented in this encounter Care Teams Procurement Assistant Relationship Specialty Start Date End Date Jade Lewis MD [address] [place], [place] [phone] PCP - General Internal Medicine 04/25/22 documented as of this encounter
--- OUTSIDE RECORDS SUMMARY | 2024-06-18 16:12 | XMS_ITS | Encounter Summary ---
Author Organization [facility], Address [address] [place] [address] Phone Care Team Providers Care Frit Burner Name Role Phone Jade Lewis MD Primary Care Provider [phone] Reason for Visit * Reason Comments Med Refill Encounter Details Date Type Department Care Team ([facility] st Contact Info) Description 10/28/2020 Refill [facility] [address] [place] [phone] Alejandro Santana MD [address] [place] [phone] Social History Tobacco Use Types Packs/Day Years [...] on filedocumented in this encounter Care Teams Frit Burner Relationship Specialty Start Date End Date Jade Lewis MD [address] [place] [address] PCP - General Internal Medicine 04/25/22 documented as of this encounter
--- OUTSIDE RECORDS SUMMARY | 2024-06-18 16:12 | XMS_ITS | Encounter Summary ---
Author Organization [facility], Address [address] [place] [address] Phone Care Team Providers Care Geomorphology Teacher Name Role Phone Jade Lewis MD Primary Care Provider [phone] Reason for Visit * Reason Comments Med Refill Encounter Details Date Type Department Care Team (Late st Contact Info) Description 10/27/2023 Refill [facility] [address] [place] [phone] Malcolm Taylor MD [address] [place] [address] [place] [address] Social History Tobacco Use Types Packs/Day Years [...] on filedocumented in this encounter Care Teams Geomorphology Teacher Relationship Specialty Start Date End Date Jade Lewis MD [address] [place] [address] PCP - General Internal Medicine 04/25/22 documented as of this encounter
--- OUTSIDE RECORDS SUMMARY | 2024-06-18 16:12 | XMS_ITS | Encounter Summary ---
Author Organization [facility] Address [address] [place] [address] Phone Care Team Providers Care Roller Printer Name Role Phone Jade Lewis MD Primary Care Provider [phone] Reason for Visit * Reason Comments Med Refill Encounter Details Date Type Department Care Team (Late st Contact Info) Description 07/23/2021 Refill [facility] [address] [place] [phone] Alejandro Santana MD [address] [place] [phone] Social History Tobacco Use Types Packs/Day Years [...] on filedocumented in this encounter Care Teams Roller Printer Relationship Specialty Start Date End Date Jade Lewis MD [address] [place] [address] PCP - General Internal Medicine 04/25/22 documented as of this encounter
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
--- OUTSIDE RECORDS SUMMARY | 2024-06-18 16:12 | XMS_ITS | Encounter Summary ---
Author Organization [facility] Address [address] [place] [address] Care Team Providers Care Comb Tender Name Role Phone Cass Turcios MD Primary Care Provider [phone] Encounter Details Date Type Department Care Team (Latest Contact Info) Description 05/24/2024 Lab Requisition [facility] - Main Lab [address] [facility] [place] [address] Laurence Florence MD [address] [place] [address] Chronic combined systolic (congestive) and diastolic (congestive) heart failure (CMS/HCC V24, CMS/HCC V28); Type 2 diabetes mellitus without complications (CMS/HCC [...] mellitus without complications End stage renal disease ([facility]/HCC) BASIC METABOLIC PANEL Routine 05/24/2024 5:56 AM EDT Chronic combined systolic (congestive) and diastolic (congestive) heart failure Type 2 diabetes mellitus without complications End stage renal disease ([facility]/HCC) documented in this encounter Results * (ABNORMAL) CBC auto differential (05/24/2024 5:56 AM EDT) [facility] WBC 9.3 4.8 - 10.8 K/mcL LAB HEMETOLOGY METHOD 05/24/2024 9:31 AM [facility] RBC 3.40(L) 4.50 - 5.50 M/mcL LAB HEMETOLOGY METHOD 05/24/2024 9:31 AM [facility] Hemoglobin 8.5(L) 13.5 - 17.5 g/dL LAB HEMETOLOGY METHOD 05/24/2024 9:31 AM [facility] LAB Hematocrit 28.2(L) 42.0 - 54.0 % LAB HEMETOLOGY METHOD 05/24/2024 9:31 AM [facility] MCV 82.0 79.0 - 98.0 FL LAB HEMETOLOGY METHOD 05/24/2024 9:31 AM [facility] LAB MCH 24.7(L) 27.0 - 32.0 pcg LAB HEMETOLOGY METHOD 05/24/2024 9:31 AM [facility] LAB MCHC 30.1(L) 32.0 - 37.0 g/dL LAB HEMETOLOGY METHOD 05/24/2024 9:31 AM [facility] LAB RDW 17.8(H) 11.0 - 15.0 % LAB HEMETOLOGY METHOD 05/24/2024 9:31 AM [facility] LAB Platelets 335 130 - 400 K/mcL LAB HEMETOLOGY METHOD 05/24/2024 9:31 AM [facility] LAB MPV 10.5 7.0 - 11.0 FL LAB HEMETOLOGY METHOD 05/24/2024 9:31 AM [facility] LAB NRBC 0.0 <1.0 % LAB HEMETOLOGY METHOD 05/24/2024 9:31 AM [facility] LAB NRBC Absolute 0.00 <0.10 K/mcL LAB HEMETOLOGY METHOD 05/24/2024 9:31 AM [facility] Neutrophils Relative 67.5 % LAB HEMETOLOGY METHOD 05/24/2024 9:31 AM [facility] Lymphocytes Relative 16.4 % LAB HEMETOLOGY METHOD 05/24/2024 9:31 AM [facility] Monocytes Relative 10.6 % LAB HEMETOLOGY METHOD 05/24/2024 9:31 AM [facility] Eosinophils Relative 4.5 % LAB HEMETOLOGY METHOD 05/24/2024 9:31 AM [facility] Basophils Relative 0.4 % LAB HEMETOLOGY METHOD 05/24/2024 9:31 AM [facility] Immature Granulocytes Relative 0.6 % LAB HEMETOLOGY METHOD 05/24/2024 9:31 AM [facility] Neutrophils Absolute 6.24 1.50 - 7.00 K/mcL LAB HEMETOLOGY METHOD 05/24/2024 9:31 AM [facility] Lymphocytes Absolute 1.52 1.00 - 5.00 K/mcL LAB HEMETOLOGY METHOD 05/24/2024 9:31 AM [facility] Monocytes Absolute 0.98 0.20 - 1.00 K/mcL LAB HEMETOLOGY METHOD 05/24/2024 9:31 AM EDT [facility] Eosinophils Absolute 0.42 0.00 - 0.50 K/mcL LAB HEMETOLOGY METHOD 05/24/2024 9:31 AM EDT [facility] Basophils Absolute 0.04 0.00 - 0.20 K/mcL LAB HEMETOLOGY METHOD 05/24/2024 9:31 AM EDT [facility] Immature Granulocytes Absolute 0.06(H) 0.00 - 0.03 K/mcL LAB HEMETOLOGY METHOD 05/24/2024 9:31 AM EDT [facility] Blood Venous blood specimen / Unknown Venipuncture / Unknown 05/24/2024 5:56 AM EDT 05/24/2024 8:41 AM EDT us Laurence Florence MD LAB BLOOD ORDERABLES Final Resu lt [facility] LAB [address] [place] [address], [place] [phone] * (ABNORMAL) Basic metabolic panel (05/24/2024 5:56 AM EDT) Sodium 134 133 - 145 mmol/L LAB CHEMISTRY METHOD 05/24/2024 9:53 AM [facility] Potassium 4.8 3.5 - 5.5 mmol/L LAB CHEMISTRY METHOD 05/24/2024 9:53 AM [facility] Chloride 100 96 - 110 mmol/L LAB CHEMISTRY METHOD 05/24/2024 9:53 AM [facility] CO2 26 21 - 32 mmol/L LAB CHEMISTRY METHOD 05/24/2024 9:53 AM [facility] Anion Gap 8 3 - 11 LAB CHEMISTRY METHOD 05/24/2024 9:53 AM [facility] Glucose 131(H) 70 - 100 mg/dL LAB CHEMISTRY METHOD 05/24/2024 9:53 AM EDT [facility] BUN 67(H) 5 - 25 mg/dL LAB CHEMISTRY METHOD 05/24/2024 9:53 AM EDT [facility] Creatinine 7.92(H) 0.70 - 1.30 mg/dL LAB CHEMISTRY METHOD 05/24/2024 9:53 AM EDT [facility] LAB eGFR 7(L) >=60 mL/min/1. 73m2 LAB CHEMISTRY METHOD 05/24/2024 9:53 AM EDT [facility] LAB Comment:Calculation based on the??Chronic Kidney Disease Epidemiology Collaboration (CKD-EPI) equation refit??without adjustment for race. BUN/Creatinine Ratio 8.5 LAB CHEMISTRY METHOD 05/24/2024 9:53 AM EDT [facility] Calcium 8.6 8.5 - 10.5 mg/dL LAB CHEMISTRY METHOD 05/24/2024 9:53 AM EDT [facility] Blood Venous blood specimen / Unknown Venipuncture / Unknown 05/24/2024 5:56 AM EDT 05/24/2024 8:41 AM EDT us Laurence Florence MD LAB BLOOD ORDERABLES Final Resu lt [facility] LAB [address] [place] [address], documented in this encounter Visit Diagnoses Diagnosis Chronic combined systolic (congestive) and diastolic (congestive) heart failure (CMS/HCC V24, CMS/HCC V28) Type 2 diabetes mellitus without complications (CMS/HCC V24, CMS/HCC V28) End stage renal disease (CMS/HCC V24, CMS/HCC V28) End stage renal disease documented in this encounter Care Teams Comb Tender Relationship Specialty Start Date End Date Cass Turcios MD [address] [place], [place] [id number] [place] [address] PCP - General Geriatric Medicine 04/02/24 documented as of this encounter
--- OUTSIDE RECORDS SUMMARY | 2024-06-18 16:12 | XMS_ITS | Encounter Summary ---
Author Organization [facility] Address [address] [place] [address] Care Team Providers Care Welt Maker Name Role Phone Cass Turcios MD Primary Care Provider [phone] Encounter Details Date Type Department Care Team (Late st Contact Info) Description 05/30/2024 Lab Requisition [facility] - Main Lab 299 [facility] [place] [address] Laurence Florence MD [address] [place] [address] Chronic respiratory failure with hypoxia (CMS/HCC V24, [...] ones. For example, child and family services specialist or elderly care for an [...] us Laurence Florence MD LAB MICROBIOLOGY - [facility]URD Final Result [facility] [address] [place] [address], documented in this encounter Visit Diagnoses Diagnosis Chronic respiratory failure with hypoxia (CMS/HCC V24, CMS/HCC V28) Encounter for orthopedic aftercare following surgical amputation Encounter for surgical aftercare following surgery on the circulatory system Peripheral vascular disease, unspecified ([facility] V24) Peripheral vascular disease, unspecified documented in this encounter Care Teams Welt Maker Relationship Specialty Start Date End Date Cass Turcios MD [address] [place] [address] [address] [place] [address] PCP - General Geriatric Medicine 04/02/24 documented as of this encounter
--- OUTSIDE RECORDS SUMMARY | 2024-06-18 16:12 | XMS_ITS | Encounter Summary ---
Author Organization [facility], Address [address] [place] [address] Phone Care Team Providers Care Severity Of Illness Coordinator Name Role Phone Jade Lewis MD Primary Care Provider [phone] Reason for Visit * Reason Comments Med Refill Encounter Details Date Type Department Care Team (Late st Contact Info) Description 12/24/2022 Refill [facility] [address] [place] [phone] Car Mcdonald MD [facility] [place] [place] [place] [address] Social History Tobacco Use Types Packs/Day Years [...] on filedocumented in this encounter Care Teams Severity Of Illness Coordinator Relationship Specialty Start Date End Date Jade Lewis MD [address] [place] [address] PCP - General Internal Medicine 04/25/22 documented as of this encounter
--- OUTSIDE RECORDS SUMMARY | 2024-06-18 16:12 | XMS_ITS | Encounter Summary ---
Author Organization [facility] Address [address] [place] [address] Care Team Providers Care Computer Engineer Name Role Phone Cass Turcios MD Primary Care Provider [phone] Encounter Details Date Type Department Care Team (Late st Contact Info) Description 05/31/2024 Lab Requisition [facility] - Main Lab [address] [facility] [place] [address] Laurence Florence MD [address] [place] [address] End stage renal disease (CMS/HCC V24, CMS/HCC V28); Anemia, unspecified Social History Tobacco Use Types [...] CBC auto differential (05/31/2024 6:09 AM EDT) [facility] Signature WBC 10.9(H) 4.8 - 10.8 K/mcL LAB HEMETOLOGY METHOD 05/31/2024 10:13 AM [facility] LAB RBC 3.20(L) 4.50 - 5.50 M/mcL LAB HEMETOLOGY METHOD 05/31/2024 10:13 AM [facility] LAB Hemoglobin 7.7(L) 13.5 - 17.5 g/dL LAB HEMETOLOGY METHOD 05/31/2024 10:13 AM [facility] LAB Hematocrit 26.1(L) 42.0 - 54.0 % LAB HEMETOLOGY METHOD 05/31/2024 10:13 AM [facility] LAB MCV 81.8 79.0 - 98.0 FL LAB HEMETOLOGY METHOD 05/31/2024 10:13 AM [facility] LAB MCH 24.1(L) 27.0 - 32.0 pcg LAB HEMETOLOGY METHOD 05/31/2024 10:13 AM [facility] LAB MCHC 29.5(L) 32.0 - 37.0 g/dL LAB HEMETOLOGY METHOD 05/31/2024 10:13 AM [facility] LAB RDW 17.8(H) 11.0 - 15.0 % LAB HEMETOLOGY METHOD 05/31/2024 10:13 AM [facility] LAB Platelets 227 130 - 400 K/mcL LAB HEMETOLOGY METHOD 05/31/2024 10:13 AM [facility] LAB MPV 10.6 7.0 - 11.0 FL LAB HEMETOLOGY METHOD 05/31/2024 10:13 AM [facility] LAB NRBC 0.0 <1.0 % LAB HEMETOLOGY METHOD 05/31/2024 10:13 AM [facility] LAB NRBC Absolute 0.00 <0.10 K/mcL LAB HEMETOLOGY METHOD 05/31/2024 10:13 AM [facility] Neutrophils Relative 69.5 % LAB HEMETOLOGY METHOD 05/31/2024 10:13 AM [facility] LAB Lymphocytes Relative 19.2 % LAB HEMETOLOGY METHOD 05/31/2024 10:13 AM [facility] Monocytes Relative 8.4 % LAB HEMETOLOGY METHOD 05/31/2024 10:13 AM [facility] Eosinophils Relative 1.8 % LAB HEMETOLOGY METHOD 05/31/2024 10:13 AM [facility] Basophils Relative 0.5 % LAB HEMETOLOGY METHOD 05/31/2024 10:13 AM [facility] LAB Immature Granulocytes Relative 0.6 % LAB HEMETOLOGY METHOD 05/31/2024 10:13 AM [facility] LAB Neutrophils Absolute 7.60(H) 1.50 - 7.00 K/mcL LAB HEMETOLOGY METHOD 05/31/2024 10:13 AM [facility] LAB Lymphocytes Absolute 2.10 1.00 - 5.00 K/mcL LAB HEMETOLOGY METHOD 05/31/2024 10:13 AM [facility] LAB Monocytes Absolute 0.92 0.20 - 1.00 K/mcL LAB HEMETOLOGY METHOD 05/31/2024 10:13 AM [facility] LAB Eosinophils Absolute 0.20 0.00 - 0.50 K/mcL LAB HEMETOLOGY METHOD 05/31/2024 10:13 AM [facility] LAB Basophils Absolute 0.05 0.00 - 0.20 K/mcL LAB HEMETOLOGY METHOD 05/31/2024 10:13 AM [facility] LAB Immature Granulocytes Absolute 0.07(H) 0.00 - 0.03 K/mcL LAB HEMETOLOGY METHOD 05/31/2024 10:13 AM [facility] LAB Blood Venous blood specimen / Unknown Venipuncture / Unknown 05/31/2024 6:09 AM EDT 05/31/2024 9:24 AM EDT us Laurence Florence MD LAB BLOOD ORDERABLES Final Resu lt [facility] LAB [address] [place] [address], * (ABNORMAL) Basic metabolic panel (05/31/2024 6:09 AM EDT) Sodium 139 133 - 145 mmol/L LAB CHEMISTRY METHOD 05/31/2024 11:03 AM [facility] LAB Potassium 4.6 3.5 - 5.5 mmol/L LAB CHEMISTRY METHOD 05/31/2024 11:03 AM [facility] LAB Chloride 106 96 - 110 mmol/L LAB CHEMISTRY METHOD 05/31/2024 11:03 AM [facility] CO2 27 21 - 32 mmol/L LAB CHEMISTRY METHOD 05/31/2024 11:03 AM [facility] LAB Anion Gap 6 3 - 11 LAB CHEMISTRY METHOD 05/31/2024 11:03 AM [facility] LAB Glucose 24(LL) 70 - 100 mg/dL LAB CHEMISTRY METHOD 05/31/2024 11:03 AM [facility] LAB BUN 52(H) 5 - 25 mg/dL LAB CHEMISTRY METHOD 05/31/2024 11:03 AM [facility] LAB Creatinine 7.22(H) 0.70 - 1.30 mg/dL LAB CHEMISTRY METHOD 05/31/2024 11:03 AM EDT [facility] LAB eGFR 8(L) >=60 mL/min/1. 73m2 LAB CHEMISTRY METHOD 05/31/2024 11:03 AM EDT [facility] LAB Comment:Calculation based on the??Chronic Kidney Disease Epidemiology Collaboration (CKD-EPI) equation refit??without adjustment for race. BUN/Creatinine Ratio 7.2 LAB CHEMISTRY METHOD 05/31/2024 11:03 AM EDT [facility] Calcium 8.2(L) 8.5 - 10.5 mg/dL LAB CHEMISTRY METHOD 05/31/2024 11:03 AM EDT [facility] Blood Venous blood specimen / Unknown Venipuncture / Unknown 05/31/2024 6:09 AM EDT 05/31/2024 9:24 AM EDT us Laurence Florence MD LAB BLOOD ORDERABLES Final Resu lt [facility] LAB [address] [place] [address], documented in this encounter Visit Diagnoses Diagnosis End stage renal disease (CMS/HCC V24, CMS/HCC V28) End stage renal disease Anemia, unspecified documented in this encounter Care Teams Computer Engineer Relationship Specialty Start Date End Date Cass Turcios MD [address] [place] [address] [address] [place] [address] PCP - General Geriatric Medicine 04/02/24 documented as of this encounter
--- OUTSIDE RECORDS SUMMARY | 2024-06-18 16:12 | XMS_ITS | Encounter Summary ---
Author Organization [facility], Address [address] [place] [address] Phone Care Team Providers Care Top Tile Decorator Name Role Phone Jade Lewis MD Primary Care Provider [phone] Reason for Visit * Reason Comments Med Refill Encounter Details Date Type Department Care Team (Late st Contact Info) Description 06/13/2023 Refill [facility] [address] [place] [phone] Malcolm Taylor MD [address] [place] [phone] Social History Tobacco Use Types Packs/Day Years [...] on filedocumented in this encounter Care Teams Top Tile Decorator Relationship Specialty Start Date End Date Jade Lewis MD [address] [place] [address] PCP - General Internal Medicine 04/25/22 documented as of this encounter
--- OUTSIDE RECORDS SUMMARY | 2024-06-18 16:12 | XMS_ITS | Encounter Summary ---
Author Organization [facility] Address [address] [place] [address] Care Team Providers Care Glove Turner And Former Name Role Phone Cass Turcios MD Primary Care Provider [phone] Encounter Details Date Type Department Care Team (Latest Contact Info) Description 05/28/2024 Lab Requisition [facility] - Main Lab [address] [facility] [place] [address] Laurence Florence MD [address] [place] [address] Anemia, unspecified; End stage renal disease (CMS/HCC V24, CMS/HCC V28); Unspecified asthma, uncomplicated Social History Tobacco Use [...] (ABNORMAL) Magnesium (05/29/2024 5:09 AM EDT) Pathologist [facility] Magnesium 1.8(L) 1.9 - 2.6 mg/dL LAB CHEMISTRY METHOD 05/29/2024 9:20 AM EDT [facility] LAB Blood Venous blood specimen / Unknown Venipuncture / Unknown 05/29/2024 5:09 AM EDT 05/29/2024 8:42 AM EDT us Laurence Florence MD LAB BLOOD ORDERABLES Final Resu lt [facility] LAB [address] [place] [address], * (ABNORMAL) Complete blood count (05/29/2024 5:09 AM EDT) [facility] WBC 10.8 4.8 - 10.8 K/mcL LAB HEMETOLOGY METHOD 05/29/2024 9:01 AM EDT [facility] LAB RBC 3.50(L) 4.50 - 5.50 M/mcL LAB HEMETOLOGY METHOD 05/29/2024 9:01 AM EDT [facility] LAB Hemoglobin 8.2(L) 13.5 - 17.5 g/dL LAB HEMETOLOGY METHOD 05/29/2024 9:01 AM EDT [facility] LAB Hematocrit 28.4(L) 42.0 - 54.0 % LAB HEMETOLOGY METHOD 05/29/2024 9:01 AM EDT [facility] LAB MCV 81.8 79.0 - 98.0 FL LAB [facility]OLOGY [facility] MCH 23.6(L) 27.0 - 32.0 pcg LAB HEMETOLOGY METHOD 05/29/2024 9:01 AM [facility] MCHC 28.9(L) 32.0 - 37.0 g/dL LAB HEMETOLOGY METHOD 05/29/2024 9:01 AM [facility] RDW 18.2(H) 11.0 - 15.0 % LAB HEMETOLOGY [facility] Platelets 263 130 - 400 K/mcL LAB HEMETOLOGY METHOD 05/29/2024 9:01 AM [facility] MPV 11.2(H) 7.0 - 11.0 FL LAB HEMETOLOGY METHOD [facility] NRBC 0.0 <1.0 % LAB HEMETOLOGY METHOD 05/29/2024 9:01 AM [facility] NRBC Absolute 0.00 <0.10 K/mcL LAB HEMETOLOGY METHOD 05/29/2024 9:01 AM [facility] LAB Blood Venous blood specimen / Unknown Venipuncture / Unknown 05/29/2024 5:09 AM EDT 05/29/2024 8:42 AM EDT us Laurence Florence MD LAB BLOOD ORDERABLES Final Resu lt [facility] LAB [address] [place] [address], * (ABNORMAL) Renal function panel (05/29/2024 5:09 AM EDT) Sodium 135 133 - 145 mmol/L LAB CHEMISTRY METHOD 05/29/2024 10:03 AM T [facility] LAB Potassium 4.7 3.5 - 5.5 mmol/L LAB CHEMISTRY METHOD 05/29/2024 10:03 AM [facility] Chloride 99 96 - 110 mmol/L LAB CHEMISTRY METHOD 05/29/2024 10:03 AM [facility] CO2 27 21 - 32 mmol/L LAB CHEMISTRY METHOD 05/29/2024 10:03 AM [facility] Anion Gap 9 3 - 11 LAB CHEMISTRY METHOD 05/29/2024 10:03 AM [facility] Glucose 22(LL) 70 - 100 mg/dL LAB CHEMISTRY METHOD 05/29/2024 10:03 AM [facility] BUN 60(H) 5 - 25 mg/dL LAB CHEMISTRY METHOD 05/29/2024 10:03 AM [facility] Creatinine 7.71(H) 0.70 - 1.30 mg/dL LAB CHEMISTRY METHOD 05/29/2024 10:03 AM [facility] eGFR 7(L) >=60 mL/min/1. 73m2 LAB CHEMISTRY METHOD 05/29/2024 10:03 AM [facility] Comment:Calculation based on the??Chronic Kidney Disease Epidemiology Collaboration (CKD-EPI) equation refit??without adjustment for race. BUN/Creatinine Ratio 7.8 LAB CHEMISTRY METHOD 05/29/2024 10:03 AM [facility] Albumin 2.4(L) 3.2 - 5.0 g/dL LAB CHEMISTRY METHOD 05/29/2024 10:03 AM [facility] Calcium 8.7 8.5 - 10.5 mg/dL LAB CHEMISTRY METHOD 05/29/2024 10:03 AM [facility] Phosphorus 4.7(H) 2.5 - 4.5 mg/dL LAB CHEMISTRY METHOD 05/29/2024 10:03 AM [facility] Blood Venous blood specimen / Unknown Venipuncture / Unknown 05/29/2024 5:09 AM EDT 05/29/2024 8:42 AM EDT us Laurence Florence MD LAB BLOOD ORDERABLES Final Resu lt [facility] LAB [address] [place] [address], documented in this encounter Visit Diagnoses Diagnosis Anemia, unspecified End stage renal disease (CMS/HCC V24, CMS/HCC V28) End stage renal disease Unspecified asthma, uncomplicated documented in this encounter Care Teams Glove Turner And Former Relationship Specialty Start Date End Date Cass Turcios MD [address] [facility] [address] [place] [address] PCP - General Geriatric Medicine 04/02/24 documented as of this encounter
--- OUTSIDE RECORDS SUMMARY | 2024-06-18 16:12 | XMS_ITS | Encounter Summary ---
Author Organization [facility] Address [address] [place] [address] Care Team Providers Care Central Office Frame Wirer Name Role Phone Cass Turcios MD Primary Care Provider [phone] Encounter Details Date Type Department Care Team (Late st Contact Info) Description 05/20/2024 Lab Requisition [facility] - Main Lab [address] [facility] [place] [address] Laurence Florence MD [address] [place] [address] Elevated white blood cell count, unspecified Social [...] loved ones. For example, child and adolescent psychiatrist or elderly care for an older adult? [...] lt [facility] [address] [place] [address], * (ABNORMAL) Complete blood count (05/20/2024 6:04 [...] lt [facility] [address] [place] [address], documented in this encounter Visit Diagnoses Diagnosis Elevated white blood cell count, unspecified documented in this encounter Care Teams Central Office Frame Wirer Relationship Specialty Start Date End Date Cass Turcios MD [address] [place] [address] [address] [place] [address] PCP - General Geriatric Medicine 04/02/24 documented as of this encounter
--- OUTSIDE RECORDS SUMMARY | 2024-06-18 16:12 | XMS_ITS | Encounter Summary ---
Author Organization [facility], Address [address] [place] [address] Phone Care Team Providers Care Tank Terminal Gauger Name Role Phone Jade Lewis MD Primary Care Provider [phone] Reason for Visit * Reason Comments Med Refill Encounter Details Date Type Department Care Team ([facility] st Contact Info) Description 06/25/2019 Refill [facility] [address] [place] [address] Mercedes Law MD Social History [...] on filedocumented in this encounter Care Teams Tank Terminal Gauger Relationship Specialty Start Date End Date Jade Lewis MD [address] [place], [place] [phone] PCP - General Internal Medicine 04/25/22 documented as of this encounter
--- OUTSIDE RECORDS SUMMARY | 2024-06-18 16:12 | XMS_ITS | Encounter Summary ---
Author Organization [facility], Address [address] [place] [address] Phone Care Team Providers Care Skiver Operator Name Role Phone Jade Lewis MD Primary Care Provider + [phone] Reason for Visit * Reason Comments Med Refill Encounter Details Date Type Department Care Team ([facility] st Contact Info) Description 10/18/2023 Refill [facility] [address] [place] [phone] Malcolm Taylor MD [address] [place] [address] [place] [phone] Social History Tobacco Use Types Packs/Day Years [...] 10/19/2023 Unless otherwise specified, test(s) performed at: [facility], [address] [place] [address] STEREOTYPER: Homero Garcia M.D. For any questions, please call customer service at FREQUENCY:OTHER Resulting Agency Comment Specimen source: Blood us Car Mcdonald MD LAB BLOOD ORDERABLES Final Re sult [facility] See order comments or contact performing lab Unknown, [place] documented in this encounter Visit Diagnoses Not on filedocumented in this encounter Care Teams Skiver Operator Relationship Specialty Start Date End Date Jade Lewis MD [address] [place] [address] PCP - General Internal Medicine 04/25/22 documented as of this encounter
--- OUTSIDE RECORDS SUMMARY | 2024-06-18 16:12 | XMS_ITS | Encounter Summary ---
Author Organization [facility], Address [address] [place] [address] Phone Care Team Providers Care Sample Taker Operator Name Role Phone Jade Lewis MD Primary Care Provider + [phone] Reason for Visit * Reason Comments Med Refill Encounter Details Date Type Department Care Team ([facility] st Contact Info) Description 11/27/2020 Refill [facility] [address] [place] [phone] Alejandro Santana MD [address] [place] [phone] Social History Tobacco Use Types Packs/Day Years [...] on filedocumented in this encounter Care Teams Sample Taker Operator Relationship Specialty Start Date End Date Jade Lewis MD [address] [place] [id number] PCP - General Internal Medicine 04/25/22 documented as of this encounter
--- OUTSIDE RECORDS SUMMARY | 2024-06-18 16:12 | XMS_ITS | Encounter Summary ---
Author Organization [facility] Address [address] [place] [address] Phone Care Team Providers Care Casing Crew Pusher Name Role Phone Jade Lewis MD Primary Care Provider + [phone] Reason for Visit * Reason Comments Med Refill Encounter Details Date Type Department Care Team (Late st Contact Info) Description 04/30/2021 Refill [facility] [address] [place] [phone] Alejandro Santana MD [address] [place] [phone] Social History Tobacco Use Types Packs/Day Years [...] on filedocumented in this encounter Care Teams Casing Crew Pusher Relationship Specialty Start Date End Date Jade Lewis MD [address] [place] [address] PCP - General Internal Medicine 04/25/22 documented as of this encounter
--- OUTSIDE RECORDS SUMMARY | 2024-06-18 16:12 | XMS_ITS | Encounter Summary ---
Author Organization [facility] Address [address] [place] [address] Care Team Providers Care Thread Marker Name Role Phone Cass Turcios MD Primary Care Provider [phone] Encounter Details Date Type Department Care Team (Late st Contact Info) Description 04/02/2024 Lab Requisition [facility] - Main Lab [address] [facility] [place] [address] Cass Turcios MD [address] [place] [address] End stage renal disease (CMS/HCC V24, CMS/HCC [...] for your loved ones. For example, children librarian or elderly care for an older adult? [...] mmol/L LAB CHEMISTRY METHOD 04/02/2024 10:35 AM [facility] Potassium 5.6(H) 3.5 - 5.5 mmol/L LAB CHEMISTRY METHOD 04/02/2024 10:35 AM [facility] Chloride 95(L) 96 - 110 mmol/L LAB CHEMISTRY METHOD 04/02/2024 10:35 AM [facility] CO2 32 21 - 32 mmol/L LAB CHEMISTRY METHOD 04/02/2024 10:35 AM [facility] Anion Gap 8 3 - 11 LAB CHEMISTRY METHOD 04/02/2024 10:35 AM [facility] Glucose 32(LL) 70 - 100 mg/dL LAB CHEMISTRY METHOD 04/02/2024 10:35 AM [facility] BUN 50(H) 5 - 25 mg/dL LAB CHEMISTRY METHOD 04/02/2024 10:35 AM [facility] Creatinine 7.72(H) 0.70 - 1.30 mg/dL LAB CHEMISTRY METHOD 04/02/2024 10:35 AM [facility] eGFR 7(L) >=60 mL/min/1. 73m2 LAB CHEMISTRY METHOD 04/02/2024 10:35 AM [facility] Comment:Calculation based on the??Chronic Kidney Disease Epidemiology Collaboration (CKD-EPI) equation refit??without adjustment for race. BUN/Creatinine Ratio 6.5 LAB CHEMISTRY METHOD 04/02/2024 10:35 AM [facility] Calcium 8.3(L) 8.5 - 10.5 mg/dL LAB CHEMISTRY METHOD 04/02/2024 10:35 AM [facility] Blood Venous blood specimen / Unknown Venipuncture / Unknown 04/02/2024 5:24 AM EST 04/02/2024 8:48 AM EST us Cass Turcios MD LAB BLOOD ORDERABLES Final Resul t [facility] [address] [place] [address], * (ABNORMAL) Complete blood count (04/02/2024 5:24 AM EST) WBC 26.2(H) 4.8 - 10.8 K/mcL LAB HEMETOLOGY METHOD 04/02/2024 9:47 AM [facility] RBC 4.10(L) 4.50 - 5.50 M/mcL LAB HEMETOLOGY METHOD 04/02/2024 9:47 AM [facility] Hemoglobin 9.4(L) 13.5 - 17.5 g/dL LAB HEMETOLOGY METHOD 04/02/2024 9:47 AM [facility] Hematocrit 31.2(L) 42.0 - 54.0 % LAB HEMETOLOGY METHOD 04/02/2024 9:47 AM [facility] MCV 76.1(L) 79.0 - 98.0 FL LAB HEMETOLOGY METHOD 04/02/2024 9:47 AM [facility] MCH 22.9(L) 27.0 - 32.0 pcg LAB HEMETOLOGY METHOD 04/02/2024 9:47 AM [facility] MCHC 30.1(L) 32.0 - 37.0 g/dL LAB HEMETOLOGY METHOD 04/02/2024 9:47 AM [facility] RDW 17.1(H) 11.0 - 15.0 % LAB HEMETOLOGY METHOD 04/02/2024 9:47 AM [facility] Platelets 349 130 - 400 K/mcL LAB HEMETOLOGY METHOD 04/02/2024 9:47 AM [facility] MPV 11.4(H) 7.0 - 11.0 FL LAB HEMETOLOGY METHOD 04/02/2024 9:47 AM EST [facility] NRBC 0.0 <1.0 % LAB HEMETOLOGY METHOD 04/02/2024 9:47 AM EST [facility] NRBC Absolute 0.00 <0.10 K/mcL LAB HEMETOLOGY METHOD 04/02/2024 9:47 AM EST [facility] Blood Venous blood specimen / Unknown Venipuncture / Unknown 04/02/2024 5:24 AM EST 04/02/2024 8:48 AM EST Cass Turcios MD LAB BLOOD ORDERABLES Final Resul t [facility] [address] [place] [address], documented in this encounter Visit Diagnoses Diagnosis End stage renal disease (CMS/HCC V24, CMS/HCC V28) End stage renal disease documented in this encounter Care Teams Thread Marker Relationship Specialty Start Date End Date Cass Turcios MD [address] [place] [address] [address] [place] [address] PCP - General Geriatric Medicine 04/02/24 documented as of this encounter
--- OUTSIDE RECORDS SUMMARY | 2024-06-18 16:12 | XMS_ITS | Encounter Summary ---
Author Organization [facility] Address [address] [place] [address] Care Team Providers Care Harvest Contractor Name Role Phone Cass Turcios MD Primary Care Provider [phone] Encounter Details Date Type Department Care Team (Late st Contact Info) Description 03/25/2024 Lab Requisition [facility] - Main Lab [address] [facility] [place] [address] Cass Turcios MD [address] [place] [address] Anemia, unspecified; Chronic diastolic (congestive) heart failure (CMS/HCC V24, CMS/HCC V28); Other pericardial effusion (noninflammatory); End stage renal disease (CMS/HCC V24, CMS/HCC [...] care for your loved ones. For example, housekeeper child care or elderly care for an older adult? [...] mg/dL LAB CHEMISTRY METHOD 03/25/2024 2:44 PM EST [facility] AST (SGOT) 21 10 - [...] Resul t [facility] [address] [place] [address], * (ABNORMAL) Complete blood count (03/25/2024 5:09 AM EST) WBC 14.1(H) 4.8 - 10.8 K/mcL LAB HEMETOLOGY METHOD 03/25/2024 2:27 PM EST [facility] RBC 4.60 4.50 - 5.50 [...] MD LAB BLOOD ORDERABLES Final Resul t [facility] [address] [place] [address], documented in this encounter Visit Diagnoses Diagnosis Anemia, unspecified Chronic diastolic (congestive) heart failure ([facility] V24, [facility] V28) Other pericardial effusion (noninflammatory) End stage renal disease ([facility] V24, [facility] V28) End stage renal disease documented in this encounter Additional Health Concerns Infection Onset Date Last Indicated Resolved Time Respiratory Rule-Out 03/25/2024 03/25/2024 025 8:14 PM EST documented as of this encounter Care Teams Harvest Contractor Relationship Specialty Start Date End Date Cass Turcios MD [address] [facility] [address] [place] [address] PCP - General Geriatric Medicine 04/02/24 documented as of this encounter
--- OUTSIDE RECORDS SUMMARY | 2024-06-18 16:12 | XMS_ITS | Encounter Summary ---
Author Organization [facility] Address [address] [place] [address] Care Team Providers Care Contact Centre Supervisor Name Role Phone Cass Turcios MD Primary Care Provider [phone] Encounter Details Date Type Department Care Team (Late st Contact Info) Description 05/18/[address] [facility] - Main Lab [address] [facility] [place] [address] Elsy Christina PA [address] [facility] [address] [place] [address] Unspecified systolic (congestive) heart failure ([facility] V24, CMS/HCC V28); Type 2 diabetes mellitus without complications (CMS/HCC V24, CMS/HCC V28); End stage renal disease (CMS/HCC V24, [facility] V28) Social History Tobacco Use Types Packs/Day [...] AM EDT Unspecified systolic (congestive) heart failure ([facility]/HCC) Type 2 diabetes mellitus without [...] K/mcL LAB HEMETOLOGY METHOD 05/18/2024 10:27 AM [facility] RBC 3.60(L) 4.50 - 5.50 M/mcL LAB HEMETOLOGY METHOD 05/18/2024 10:27 AM [facility] Hemoglobin 8.8(L) 13.5 - 17.5 g/dL LAB HEMETOLOGY METHOD 05/18/2024 10:27 AM [facility] Hematocrit 29.6(L) 42.0 - 54.0 % LAB HEMETOLOGY METHOD 05/18/2024 10:27 AM [facility] MCV 83.1 79.0 - 98.0 FL LAB HEMETOLOGY METHOD 05/18/2024 10:27 AM [facility] MCH 24.7(L) 27.0 - 32.0 pcg LAB HEMETOLOGY METHOD 05/18/2024 10:27 AM [facility] MCHC 29.7(L) 32.0 - 37.0 g/dL LAB HEMETOLOGY METHOD 05/18/2024 10:27 AM [facility] RDW 18.3(H) 11.0 - 15.0 % LAB HEMETOLOGY METHOD 05/18/2024 10:27 AM [facility] Platelets 433(H) 130 - 400 K/mcL LAB HEMETOLOGY METHOD 05/18/2024 10:27 AM [facility] MPV 10.5 7.0 - 11.0 FL LAB HEMETOLOGY METHOD 05/18/2024 10:27 AM [facility] NRBC 0.0 <1.0 % LAB HEMETOLOGY METHOD 05/18/2024 10:27 AM [facility] NRBC Absolute 0.00 <0.10 K/mcL LAB HEMETOLOGY METHOD 05/18/2024 10:27 AM [facility] Neutrophils Relative 75.0 % LAB HEMETOLOGY METHOD 05/18/2024 10:27 AM [facility] Lymphocytes Relative 15.7 % LAB HEMETOLOGY METHOD 05/18/2024 10:27 AM [facility] Monocytes Relative 5.9 % LAB HEMETOLOGY METHOD 05/18/2024 10:27 AM [facility] Eosinophils Relative 2.5 % LAB HEMETOLOGY METHOD 05/18/2024 10:27 AM [facility] Basophils Relative 0.3 % LAB HEMETOLOGY METHOD 05/18/2024 10:27 AM [facility] Immature Granulocytes Relative 0.6 % LAB HEMETOLOGY METHOD 05/18/2024 10:27 AM [facility] Neutrophils Absolute 11.02(H) 1.50 - 7.00 K/mcL LAB HEMETOLOGY METHOD 05/18/2024 10:27 AM EDT [facility] Lymphocytes Absolute 2.30 1.00 - 5.00 K/[facility] LAB HEMETOLOGY METHOD 05/18/2024 10:27 AM EDT [facility] Monocytes Absolute 0.87 0.20 - 1.00 K/[facility] LAB HEMETOLOGY METHOD 05/18/2024 10:27 AM EDT [facility] Eosinophils Absolute 0.37 0.00 - 0.50 K/[facility] LAB HEMETOLOGY METHOD 05/18/2024 10:27 AM EDT [facility] Basophils Absolute 0.04 0.00 - 0.20 K/[facility] LAB HEMETOLOGY METHOD 05/18/2024 10:27 AM EDT [facility] Immature Granulocytes Absolute 0.09(H) 0.00 - 0.03 K/[facility] LAB HEMETOLOGY METHOD 05/18/2024 10:27 AM EDT [facility] Blood Venous blood specimen / Unknown Venipuncture / Unknown 05/18/2024 7:20 AM EDT 05/18/2024 9:58 AM EDT us Elsy MONTERO LAB BLOOD ORDERABLES Final Re sult [facility] [address] [place] [address], * (ABNORMAL) Hemoglobin A1c (05/18/2024 7:20 AM EDT) Hemoglobin A1C 7.2(H) <6.5 % LAB CHEMISTRY METHOD 05/19/2024 12:06 PM EDT [facility] Mean Bld Glu Estim. 160 mg/dL LAB CHEMISTRY METHOD 05/19/2024 12:06 PM EDT [facility] Blood Venous blood specimen / Unknown Venipuncture / Unknown 05/18/2024 7:20 AM EDT 05/18/2024 9:58 AM EDT us Elsy MONTERO LAB BLOOD ORDERABLES Final Re sult [facility] [address] [place] [address], [place] [phone] * (ABNORMAL) Basic metabolic panel (05/18/2024 7:20 AM EDT) Sodium 136 133 - 145 mmol/L LAB CHEMISTRY METHOD 05/18/2024 10:41 AM [facility] Potassium 4.8 3.5 - 5.5 mmol/L LAB CHEMISTRY METHOD 05/18/2024 10:41 AM [facility] Chloride 100 96 - 110 mmol/L LAB CHEMISTRY METHOD 05/18/2024 10:41 AM [facility] CO2 28 21 - 32 mmol/L LAB CHEMISTRY METHOD 05/18/2024 10:41 AM [facility] Anion Gap 8 3 - 11 LAB CHEMISTRY METHOD 05/18/2024 10:41 AM [facility] Glucose 77 70 - 100 mg/dL LAB CHEMISTRY METHOD 05/18/2024 10:41 AM [facility] BUN 43(H) 5 - 25 mg/dL LAB CHEMISTRY METHOD 05/18/2024 10:41 AM [facility] Creatinine 6.49(H) 0.70 - 1.30 mg/dL LAB CHEMISTRY METHOD 05/18/2024 10:41 AM [facility] eGFR 9(L) >=60 mL/min/1. 73m2 LAB CHEMISTRY METHOD 05/18/2024 10:41 AM [facility] Comment:Calculation based on the??Chronic Kidney Disease Epidemiology Collaboration (CKD-EPI) equation refit??without adjustment for race. BUN/Creatinine Ratio 6.6 LAB CHEMISTRY METHOD 05/18/2024 10:41 AM [facility] Calcium 9.0 8.5 - 10.5 mg/dL LAB CHEMISTRY METHOD 05/18/2024 10:41 AM EDT [facility] Blood Venous blood specimen / Unknown Venipuncture / Unknown 05/18/2024 7:20 AM EDT 05/18/2024 9:58 AM EDT us Elsy MONTERO LAB BLOOD ORDERABLES Final Re sult [facility] [address] [place] [address], documented in this encounter Visit Diagnoses Diagnosis Unspecified systolic (congestive) heart failure ([facility] V24, [facility] V28[facility] Type 2 diabetes mellitus without complications ([facility] V24, [facility] V28) End stage renal disease ([facility] V24, [facility] V28) End stage renal disease documented in this encounter Care Teams Contact Centre Supervisor Relationship Specialty Start Date End Date Cass Turcios MD [address] [place] [address] [address] [place] [address] PCP - General Geriatric Medicine 04/02/24 documented as of this encounter
--- OUTSIDE RECORDS SUMMARY | 2024-06-18 16:12 | XMS_ITS | Encounter Summary ---
Author Organization [facility], Address [address] [place] [address] Phone Care Team Providers Care Equipment Validation Engineer Name Role Phone Jade Lewis MD Primary Care Provider [phone] Encounter Details Date Type Department Care Team (Late st Contact Info) Description 06/12/2024 Treatment [facility], [address] [place] [address] Vivi Griggs MD [facility] [place] [address] End stage renal disease; Dependence on renal [...] encounter Miscellaneous Notes * Dialysis Note - Vivi Griggs MD - 06/12/2024 12:00 AM EDT Patient: Beau Marie : 1955 Note Type: Dialysis Rounds-Comp Service Date: 06/12/2024 This patient was personally seen for a complete visit as part of routine monthly dialysis care for end stage renal disease. Attending Sergeant Of Corrections: DYLAN GRACE Dialysis Location: [facility] Schedule: Shift: 2 OVERVIEW Patient is not stable. COMMENTS: pain in right amp LE site HOME MEDICATIONS Medications reviewed. BP AND FLUID ASSESSMENT Acceptable blood pressure. Fluid status acceptable. ADEQUACY ASSESSMENT spKt/V (Daugirdas II) 1.10 (05/01/24) 1.12 (04/26/24) 1.46 (04/22/24) eKdrt/V 0.85 (05/01/24) 0.85 (04/26/24) 1.18 (04/22/24) % Urea Reduction 59 (05/01/24) 64 (04/26/24) 71 (04/22/24) BUN 88 (05/01/24) 83 (04/26/24) 91 (04/22/24) BUN Post Dialysis 36 (05/01/24) 30 (04/26/24) 26 (04/22/24) Creatinine 7.75 (04/19/24) 7.44 (03/08/24) 10.81 (02/12/24) Bicarbonate (CO2) 22 (04/19/24) 25 (03/08/24) 21 (02/12/24) Sodium 138 (04/19/24) 137 (03/08/24) 143 (02/12/24) Target met. Prescription compliance acceptable. ACCESS ASSESSMENT Vascular access examined. ANEMIA ASSESSMENT Hemoglobin 9.1 (05/01/24) 9.9 (04/24/24) 9.2 (04/19/24) Iron Saturation (TSat) 29 (04/19/24) 29 (03/08/24) 30 (02/21/24) Ferritin 1,172 (04/19/24) 1,289 (03/08/24) 800 (02/21/24) Iron 35 (04/19/24) 38 (03/08/24) 44 (02/21/24) TIBC 122 (04/19/24) 132 (03/08/24) 149 (02/21/24) Reticulocyte Hemoglobin 25.6 (03/08/24) 26.2 (12/08/23) 25.9 (09/06/23) MCV 80 (03/08/24) 82 (12/08/23) 85 (09/06/23) Anemia targets not met. NAYE adjusted per protocol. Iron adjusted per protocol. BMM ASSESSMENT Calcium 7.7 04/19/24 9.0 03/08/24 [...] 142 03/08/24 97 02/12/24 Aluminum <5 12/08/23 PTH within target. Phosphorus controlled. Calcium controlled. Bone and mineral metabolism parameters reviewed. NUTRITION ASSESSMENT Albumin 3.1 04/19/24 3.7 03/08/24 3.8 02/12/24 Potassium 4.9 04/19/24 5.1 03/08/24 5.5 02/12/24 eNPCR 1.07 05/01/24 1.05 04/26/24 1.12 04/22/24 Hemoglobin A1C 7.9 03/08/24 7.6 12/08/23 8.4 09/06/23 Albumin not at goal. Potassium controlled. PHYSICAL EXAM Exam performed. No edema. ADDITIONAL LABS WBC 10.55 (03/08/24) 8.53 (12/08/23) 9.07 (09/06/23) Cholesterol 103 (12/08/23) Triglycerides 72 (12/08/23) Hepatitis B Surface Ab 14 (12/08/23) ADDITIONAL COMMENT COMMENTS: 06/12/24: s/p amp right LE; ongoing pain; nutrition and hematologic parameters down due to surgery/infection/inflammation; dietary supplements; NAYE and consideration for transfusion if hemoglobin drops. Patient is stable Medications reviewed Physical Exam [...] reviewed. Dietary adjustments made in conjunction with energy projects lead. 7.Transplant: The patient is being evaluated for a kidney transplant. 8. Vascular issues: Has wound and is planned to go to [place] next week again for intervention. Signed by: VIVI GRIGGS MD on 06/13/2024 at 09:34:04 AM Transcribed by: VIVI GRIGGS MD on 06/13/2024 at 09:34:04 AM documented in this encounter Plan of Treatment Not on file documented as of this encounter Visit Diagnoses Diagnosis End stage renal disease Dependence on renal dialysis documented in this encounter Care Teams Equipment Validation Engineer Relationship Specialty Start Date End Date Jade Lewis MD [address] [place] [id number] PCP - General Internal Medicine 04/25/22 documented as of this encounter
--- OUTSIDE RECORDS SUMMARY | 2024-06-18 16:12 | XMS_ITS | Encounter Summary ---
Author Organization [facility], Address [address] [place] [address] Phone Care Team Providers Care Cranberry Sorter Name Role Phone Jade Lewis MD Primary Care Provider + [phone] Encounter Details Date Type Department Care Team (Late st Contact Info) Description 06/17/2024 Orders Only [facility] [address] [place] [address] Car Mcdonald MD [address] [place] [address] [place] [address] Social History Tobacco Use Types Packs/Day Years [...] Date/Time Associated Diagnosis Comments HD KINETICS Routine 06/17/2024 SPECIAL CHEMISTRY Routine 06/17/2024 POST CHEMISTRY Routine 06/17/2024 IMMUNO CHEMISTRY Routine 06/17/2024 HEMATOLOGY Routine 06/17/2024 CHEMISTRY Routine 06/17/2024 CHEMISTRY Routine 06/17/2024 documented in this encounter Results * (ABNORMAL) SPECIAL CHEMISTRY (06/17/2024) Hemoglobin A1C 6.9(H) 4.8 - 5.9 % [facility] 06/17/2024 06/18/2024 8:4 3 AM EDT Narrative [facility]24 Unless otherwise specified, test(s) performed at: [facility], [address] [place] [address] GUN WELDER: Homero Garcia M.D. For any questions, please call customer service at FREQUENCY:MONTHLY Resulting Agency Comment Specimen source: Blood Car Mcdonald MD LAB BLOOD BANK TEST ORDERABLE S Final Result [facility] See order comments or contact performing lab Unknown, [place] * HD KINETICS (06/17/2024) Pathologist [facility] [place] % Urea Reduction 79 65 - 80 % [facility] 06/17/2024 06/18/2024 8:2 7 AM EDT Narrative Resulting Agency Comment Specimen source: Plasma Car Mcdonald MD LAB BLOOD ORDERABLES Final Re sult [facility] See order comments or contact performing lab Unknown, [place] * POST CHEMISTRY (06/17/2024) BUN Post Dialysis 19 6 - 19 mg/dL [facility] 06/17/2024 06/18/2024 8:2 7 AM EDT Narrative [facility] - 06/18/2024 Unless otherwise specified, test(s) performed at: [facility], [address] [place] [id number] GUN WELDER: Homero Garcia M.D. For any questions, please call customer service at FREQUENCY:MONTHLY Resulting Agency Comment Specimen source: Plasma Car Mcdonald MD LAB BLOOD ORDERABLES Final Re sult Performing Organization Address [facility] Co de Phone Number [facility] See order comments or contact performing lab Unknown, [place] * (ABNORMAL) [facility] (06/17/2024) PTH 584(H) 16 - 80 pg/mL [facility] 06/17/2024 06/18/2024 8:3 9 AM EDT Narrative [facility] - 06/18/2024 Unless otherwise specified, test(s) performed at: [facility], [address] [place], [place] [id number] GUN WELDER: Homero Garcia M.D. For any questions, please call customer service at FREQUENCY:MONTHLY Resulting Agency Comment Specimen source: Plasma Car Mcdonald MD LAB BLOOD ORDERABLES Final Re sult Performing Organization Address [facility] Co de Phone Number [facility] See order comments or contact performing lab Unknown, [place] * IMMUNO CHEMISTRY (06/17/2024) Pathologist [facility] [place] Hep B Surface Ag Negative Negative [facility] 06/17/2024 06/18/2024 8:4 0 AM EDT Narrative Resulting Agency Comment Specimen source: Serum Car Mcdonald MD LAB BLOOD ORDERABLES Final Re sult Performing Organization Address [facility]/ZIP Co de Phone Number [facility] See order comments or contact performing lab Unknown, [place] * (ABNORMAL) [facility] (06/17/2024) Ferritin 1,096(H) 22 - 322 ng/mL [facility] BUN 92(H) 6 - 19 mg/dL [facility] Creatinine 11.07(H) 0.60 - 1.30 mg/dL [facility] BUN/Creatinine Ratio 8.3(L) 10.0 - 20.0 [facility] Sodium 143 136 - 145 mEq/L [facility] Potassium 5.6(H) 3.5 - 5.1 mEq/L [facility] Chloride 103 96 - 108 mEq/L [facility] Bicarbonate (CO2) 22 22 - 29 mEq/L [facility] Calcium 8.4 8.4 - 10.2 mg/dL [facility] Corrected Calcium 8.8 8.4 - 10.2 mg/dL [facility] Comment: Corrected Calcium is not equivalent to measured Ionized Calcium. Phosphorus 6.2(H) 2.6 - 4.5 mg/dL [facility] Calcium Phosphorus Product 52 0 - 54 [facility] Calcium Phosporus Product, Cor 55(H) 0 - 54 [facility] Alkaline Phosphatase 117 40 - 129 U/L [facility] ALT (SGPT) 11 7 - 52 U/L [facility] Albumin 3.5 3.5 - 5.2 g/dL [facility] Magnesium 1.8 1.6 - 2.6 mg/dL [facility] Iron 62 45 - 160 mcg/dL [facility] UIBC 113(L) 155 - 355 mcg/dL [facility] TIBC 175(L) 185 - 515 mcg/dL [facility] Iron Saturation (TSat) 35 20 - 55 % [facility] 06/17/2024 06/18/2024 8:4 0 AM EDT Narrative [facility] - 06/18/2024 Unless otherwise specified, test(s) performed at: [facility], [address] [place] [address] GUN WELDER: Homero Garcia M.D. For any questions, please call customer service at FREQUENCY:MONTHLY Resulting Agency Comment Specimen source: Serum us Car Mcdonald MD LAB BLOOD ORDERABLES Edited R esult - Final [facility] See order comments or contact performing lab Unknown, [place] * (ABNORMAL) HEMATOLOGY (06/17/2024) Hemoglobin 8.8(L) 14.0 - 18.0 g/dL [facility] Hemoglobin x 3 26.4(L) 42.0 - 54.0 % [facility] Hematocrit 30.8(L) 42.0 - 52.0 % [facility] Reticulocyte Hemoglobin 27.0 25.4 - 31.8 pg [facility] 06/17/2024 06/18/2024 8:4 3 AM EDT Narrative [facility] - 06/18/2024 Unless otherwise specified, test(s) performed at: [facility], [address] [place], [place] [phone] GUN WELDER: Homero Garcia M.D. For any questions, please call customer service at FREQUENCY:MONTHLY Resulting Agency Comment Specimen source: Blood us Car Mcdonald MD LAB BLOOD ORDERABLES Final Re sult [facility] See order comments or contact performing lab Unknown, [place] documented in this encounter Visit Diagnoses Not on filedocumented in this encounter Care Teams Cranberry Sorter Relationship Specialty Start Date End Date Jade Lewis MD [address] [place] [id number] PCP - General Internal Medicine 04/25/22 documented as of this encounter
--- OUTSIDE RECORDS SUMMARY | 2024-06-18 16:12 | XMS_ITS | Encounter Summary ---
Author Organization [facility] Address [address] [place] [address] Care Team Providers Care Secondary Market Manager Name Role Phone Cass Turcios MD Primary Care Provider [phone] Encounter Details Date Type Department Care Team (Late st Contact Info) Description 05/21/2024 Lab Requisition [facility] - Main Lab [address] [facility] [place] [address] Laurence Florence MD [address] [place] [id number] Chronic combined systolic (congestive) and diastolic (congestive) heart failure (CMS/HCC V24, CMS/HCC V28); End stage renal [...] loved ones. For example, child and family therapist or elderly care for an older [...] CBC auto differential (05/21/2024 5:40 AM EDT) [facility] WBC 14.4(H) 4.8 - 10.8 K/mcL LAB HEMETOLOGY METHOD 05/21/2024 12:49 PM [facility] RBC 3.80(L) 4.50 - 5.50 M/mcL LAB HEMETOLOGY METHOD 05/21/2024 12:49 PM [facility] Hemoglobin 9.5(L) 13.5 - 17.5 g/dL LAB HEMETOLOGY METHOD 05/21/2024 12:49 PM [facility] Hematocrit 33.1(L) 42.0 - 54.0 % LAB HEMETOLOGY METHOD 05/21/2024 12:49 PM [facility] MCV 87.1 79.0 - 98.0 FL LAB HEMETOLOGY METHOD 05/21/2024 12:49 PM [facility] MCH 25.0(L) 27.0 - 32.0 pcg LAB HEMETOLOGY METHOD 05/21/2024 12:49 PM [facility] MCHC 28.7(L) 32.0 - 37.0 g/dL LAB HEMETOLOGY METHOD 05/21/2024 12:49 PM [facility] RDW 19.6(H) 11.0 - 15.0 % LAB HEMETOLOGY METHOD 05/21/2024 12:49 PM [facility] Platelets 447(H) 130 - 400 K/mcL LAB HEMETOLOGY METHOD 05/21/2024 12:49 PM EDT [facility] MPV 11.3(H) 7.0 - 11.0 FL LAB HEMETOLOGY METHOD 05/21/2024 12:49 [facility] NRBC 0.0 <1.0 % LAB HEMETOLOGY METHOD 05/21/2024 12:49 [facility] NRBC Absolute 0.00 <0.10 K/mcL LAB HEMETOLOGY METHOD 05/21/2024 12:49 PM [facility] Neutrophils Relative 76.8 % LAB HEMETOLOGY METHOD 05/21/2024 12:49 PM [facility] Lymphocytes Relative 13.0 % LAB HEMETOLOGY METHOD 05/21/2024 12:49 PM [facility] Monocytes Relative 7.0 % LAB HEMETOLOGY METHOD 05/21/2024 12:49 PM [facility] Eosinophils Relative 2.0 % LAB HEMETOLOGY METHOD 05/21/2024 12:49 PM [facility] Basophils Relative 0.4 % LAB HEMETOLOGY METHOD 05/21/2024 12:49 PM [facility] Immature Granulocytes Relative 0.8 % LAB HEMETOLOGY METHOD 05/21/2024 12:49 PM [facility] Neutrophils Absolute 11.05(H) 1.50 - 7.00 K/mcL LAB HEMETOLOGY METHOD 05/21/2024 12:49 [facility] Lymphocytes Absolute 1.87 1.00 - 5.00 K/mcL LAB HEMETOLOGY METHOD 05/21/2024 12:49 PM [facility] Monocytes Absolute 1.00 0.20 - 1.00 K/mcL LAB HEMETOLOGY METHOD 05/21/2024 12:49 PM EDT [facility] Eosinophils Absolute 0.29 0.00 - 0.50 K/[facility] LAB HEMETOLOGY METHOD 05/21/2024 12:49 PM EDT [facility] Basophils Absolute 0.06 0.00 - 0.20 K/mcL LAB HEMETOLOGY METHOD 05/21/2024 12:49 PM EDT [facility] Immature Granulocytes Absolute 0.11(H) 0.00 - 0.03 K/[facility] LAB HEMETOLOGY METHOD 05/21/2024 12:49 PM EDT [facility] Blood Venous blood specimen / Unknown Venipuncture / Unknown 05/21/2024 5:40 AM EDT 05/21/2024 11:19 AM EDT us Laurence Florence MD LAB BLOOD ORDERABLES Final Resu lt [facility] [address] [place] [address], [place] [phone] * (ABNORMAL) Basic metabolic panel (05/21/2024 5:40 AM EDT) Sodium 137 133 - 145 mmol/L LAB CHEMISTRY METHOD 05/21/2024 2:38 PM [facility] Potassium 5.3 3.5 - 5.5 mmol/L LAB CHEMISTRY METHOD 05/21/2024 2:38 PM T [facility] Comment:Hemolysis present Chloride 99 96 - 110 mmol/L LAB CHEMISTRY METHOD 05/21/2024 2:38 PM [facility] CO2 27 21 - 32 mmol/L LAB CHEMISTRY METHOD 05/21/2024 2:38 PM [facility] Anion Gap 11 3 - 11 LAB CHEMISTRY METHOD 05/21/2024 2:38 PM [facility] Glucose 76 70 - 100 mg/dL LAB CHEMISTRY METHOD 05/21/2024 2:38 PM EDT [facility] BUN 58(H) 5 - 25 mg/dL LAB CHEMISTRY METHOD 05/21/2024 2:38 PM EDT [facility] Creatinine 7.10(H) 0.70 - 1.30 mg/dL LAB CHEMISTRY METHOD 05/21/2024 2:38 PM EDT [facility] eGFR 8(L) >=60 mL/min/1. 73m2 LAB CHEMISTRY METHOD 05/21/2024 2:38 PM EDT [facility] Comment:Calculation based on the??Chronic Kidney Disease Epidemiology Collaboration (CKD-EPI) equation refit??without adjustment for race. BUN/Creatinine Ratio 8.2 LAB CHEMISTRY METHOD 05/21/2024 2:38 PM EDT [facility] Calcium 8.6 8.5 - 10.5 mg/dL LAB CHEMISTRY METHOD 05/21/2024 2:38 PM EDT [facility] Blood Venous blood specimen / Unknown Venipuncture / Unknown 05/21/2024 5:40 AM EDT 05/21/2024 11:19 AM EDT us Laurence Florence MD LAB BLOOD ORDERABLES Final Resu lt [facility] [address] [place] [address], documented in this encounter Visit Diagnoses Diagnosis Chronic combined systolic (congestive) and diastolic (congestive) heart failure (CMS/HCC V24, CMS/HCC V28) End stage renal disease (CMS/HCC V24, CMS/HCC V28) End stage renal disease documented in this encounter Care Teams Secondary Market Manager Relationship Specialty Start Date End Date Cass Turcios MD [address] [place] [address] [address] [place] [address] PCP - General Geriatric Medicine 04/02/24 documented as of this encounter
--- OUTSIDE RECORDS SUMMARY | 2024-06-18 16:12 | XMS_ITS | Encounter Summary ---
Author Organization [facility], Address [address] [place] [address] Phone Care Team Providers Care Acquisition Professional Name Role Phone Jade Lewis MD Primary Care Provider [phone] Reason for Visit * Reason Comments Med Refill Encounter Details Date Type Department Care Team (Late st Contact Info) Description 05/22/2023 Refill [facility] [address] [place] [phone] Car Mcdonald MD [facility] [place] [address] Social History Tobacco Use Types Packs/Day Years [...] on filedocumented in this encounter Care Teams Acquisition Professional Relationship Specialty Start Date End Date Jade Lewis MD [address] [place] [id number] PCP - General Internal Medicine 04/25/22 documented as of this encounter
--- OUTSIDE RECORDS SUMMARY | 2024-06-18 16:12 | XMS_ITS | Clinical Summary ---
Author Organization [facility] Address [address] [place] [address] Phone Care Team Providers Care Product Trainer Name Role Phone Jade Lewis MD Primary Care Provider + [phone] Allergies Active Allergy Reactions Criticality Noted Date [...] FOR WHEEZING 1 Active ergocalciferol 1.25 MG (71489 UT) capsule Take 1 capsule (50,000 Units total) by mouth 1 (one) time per week 4 capsule 5 1 Active cetirizine (ZyrTEC) 10 MG tablet Take 10 mg by mouth 1 (one) time each day Active Fluticasone-Salm eterol 100-50 MCG/ACT aerosol powder [facility] - [place], [place] - [id number] [place] [phone] 60.00 Each 5 30 INHALE 1 PUFF [...] mouth daily. Prescribed by Dr. Car Mcdonald (pharmaceutical sales). 2 Active aspirin (ST ANITRA) 81 MG [...] asthma 03/31/2022 Overview (09/15/2022): 08/19/21 Eval at [facility]. Increase Advair to 100/50 F/u 6 months. 05/24/22 Eval at [facility], Dr Funez. Recommends Trelegy once daily. [...] Admitted to [facility] [place]-05/12/21 for facial swelling [...] Admitted to [facility] [place] 03/10/21-03/18/21 for Covid-19 and [...] Admitted to [facility] [place] for non-occulsive thrombosis in R internal jugular vein. Acute embolism and thrombosis of left internal j ugular vein 12/21/2020 End stage renal failure on dialysis 11/19/2020 Overview (10/05/2021): [facility] Hypocalcemia 11/13/2020 Angina pectoris 11/09/2020 Coagulation defect 11/09/2020 Headache 11/09/2020 Type 2 diabetes mellitus with diabetic nephropat hy 11/09/2020 Edema 09/28/2020 Iron deficiency anemia 12/24/2019 Chronic kidney disease stage 4 02/19/2019 Anemia in chronic kidney disease 02/19/2019 History of colonoscopy 03/30/2016 Overview (01/26/2021): Approximately 2010 in [place] per Pt 11/24/20 Eval at [facility], recommend colonoscopy. Resolved Problems Problem Noted [...] diabetes mellitus 06/12/2015 Overview (01/26/2021): Followed by [facility] Endocrinology. Last visit 06/23/15, HbA1c = 11.1%. Has diabetic nephropathy, retinopathy, and peripheral neuropathy. Switched to Novolin 70/30. Taking 23 units TID with meals, may titrate up/down depending on BG readings over the next few days. They are trying to submit PA for Lyrica. 04/27/16 F/u with Estefani Kaur, DO at [facility] Endocrine. Titrate Novolog 70/30 to 22 units with breakfast, 30 units with dinner. If no improvement or if ongoing hypoglycemia will consider switchign to Levemir and Humalog; F/u 3 months 11/03/20 F/u [facility]. A1c > 12% Continue Lanuts 52 and Humalog 4-8 untsi with meals. Consider using NPH during peritoneal dialysis Encounters Date Type Department Care Team Description 06/17/2024 Orders Only [facility] [address] [address] Car Mcdonald MD 06/12/2024 Treatment [facility], [address] [place] [address] Donny Griggs MD End stage renal disease; Dependence on renal dialysis 05/01/2024 Orders Only [facility] [address] [address] Car Mcdonald MD 2024 Orders Only [facility] [address] [address] Car Mcdonald MD 2024 Treatment [facility], [address] [place] [address] Arely Hernández, BRAND MARKETING MANAGER 04/24/2024 Treatment [facility] [address] [place] [address] Malcolm Taylor MD End stage renal disease; Dependence on renal dialysis 04/24/2024 Orders Only [facility] [address] [address] Car Mcdonald MD 04/22/2024 Orders Only [facility] [address] [address] Car Mcdonald MD 04/19/2024 Orders Only [facility] [address] [address] Car Mcdonald MD 04/19/2024 Treatment [facility] [address] [place] [address] Arely Hernández, BRAND MARKETING MANAGER 04/05/2024 Treatment [facility] [address] [place] [address] Arely Hernández, BRAND MARKETING MANAGER 04/03/2024 Orders Only [facility] [address] [address] Car Mcdonald MD 04/01/2024 Treatment [facility] [address] [place] [address] Malcolm Taylor MD 03/29/2024 Orders Only [facility] [address] [address] Car Mcdonald MD from Last 3 Months Immunizations Immunization Administration Dates Next Due Hepatitis B 04/13/2016, 2,11/01/2010,08/27 Influenza Split 02/10/2012 Influenza Split High Dose Pr eservative Free IM 12/13/2016 Influenza TIV (IM) 11/10/2015,02/18/2014 Influenza, MDCK, Quadrivalen t, with preservative 12/03/2019 Moderna SARS-COV-2 07/29/2020,07/01/2020 Pneumococcal Polysaccharide 04/13/2016, 3,04/25/1997 Shingrix 01/07/2020,07/27/2017 Td 04/25/1997 Tdap 08/27/2010 Family History Medical History Relation Comments Heart disease Father Myocardial infar ction, at 65 Diabetes Mother Heart disease Mother [place] Stroke Mother grandfather Hypertension Sibling 1 Kidney [...] Visual Foot Exam 02/18/2019 Diabetes: Hemoglobin A1C 09/16/2024 04/2 025, 03/08/2024, 12/08/2023, Additional history exists Pneumococcal Vaccine: 50+ Ye ars (4 of 4 - PCV20 or PCV21) 01/15/2026 01/15/2021, 11/13/2020, 01/04/2018, Additional history exists Colorectal Cancer Screening: Colonoscopy 03/30/2026 03/30/2016 Pneumococcal Vaccine: Peds ( 0 to 5 Years) and At-Risk Patients (6 to 49 Years) Discontinued 01/15/2021, 11/13/2020, 01/04/2018, Additional history exists Influenza Vaccine Completed 11/14/2023, , 12/24/2021, Additional history exists Procedures Procedure Name Priority Date/Time Associated Diagnosis Comments SPECIAL CHEMISTRY Routine 06/17/2024 HD KINETICS Routine 06/17/2024 POST CHEMISTRY Routine 06/17/2024 CHEMISTRY Routine 06/17/2024 IMMUNO CHEMISTRY Routine 06/17/2024 CHEMISTRY Routine 06/17/2024 HEMATOLOGY Routine 06/17/2024 [facility] RESULTS Routine 05/01/2024 HD [...] 04/19/2024 HEMATOLOGY Routine 04/03/2024 HEMATOLOGY Routine 03/29/2024 from Last 3 Months Results * HD KINETICS (06/17/2024) Only the most recent of4 resultswithin the time period is included. % Urea Reduction 79 65 - 80 % [facility] 06/17/2024 06/18/2024 8:2 7 AM EDT Narrative Resulting Agency Comment Specimen source: Plasma us Car Mcdonald MD LAB BLOOD ORDERABLES Final Re sult [facility] See order comments or contact performing lab Unknown, [place] * (ABNORMAL) SPECIAL CHEMISTRY (06/17/2024) Hemoglobin A1C 6.9(H) 4.8 - 5.9 % [facility] 06/17/2024 06/18/2024 8:4 3 AM EDT Narrative [facility] - 06/18/2024 Unless otherwise specified, test(s) performed at: [facility], [address] [place], [place] [id number] PAPER SUPERVISOR: Homero Garcia M.D. For any questions, please call customer service at FREQUENCY:MONTHLY Resulting Agency Comment Specimen source: Blood Car Mcdonald MD LAB BLOOD BANK TEST ORDERABLE S Final Result Performing Organization Address [facility] de Phone Number [email or web address] See order comments or contact performing lab Unknown, [place] * POST CHEMISTRY (06/17/2024) Only the most recent of4 resultswithin the time period is included. Pathologist [facility] BUN Post Dialysis 19 6 - 19 mg/dL [facility] 06/17/2024 06/18/2024 8:2 7 AM EDT Narrative [facility] - 06/18/2024 Unless otherwise specified, test(s) performed at: [facility], [address] [place] [address] PAPER SUPERVISOR: Homero Garcia M.D. For any questions, please call customer service at FREQUENCY:MONTHLY Resulting Agency Comment Specimen source: Plasma Car Mcdonald MD LAB BLOOD ORDERABLES Final Re sult Performing Organization Address [facility] de Phone Number [email or web address] See order comments or contact performing lab Unknown, [place] * IMMUNO CHEMISTRY (06/17/2024) Only the most recent of2 resultswithin the time period is included. Pathologist [facility] Hep B Surface Ag Negative Negative [facility] 06/17/2024 06/18/2024 8:4 0 AM EDT Narrative Resulting Agency Comment Specimen source: Serum Car Mcdonald MD LAB BLOOD ORDERABLES Final Re sult Performing Organization Address [facility] de Phone Number [email or web address] See order comments or contact performing lab Unknown, [place] * (ABNORMAL) HEMATOLOGY (06/17/2024) Only the most recent of6 resultswithin the time period is included. Hemoglobin 8.8(L) 14.0 - 18.0 g/dL [facility] Hemoglobin x 3 26.4(L) 42.0 - 54.0 % [facility] Hematocrit 30.8(L) 42.0 - 52.0 % [facility] Reticulocyte Hemoglobin 27.0 25.4 - 31.8 pg [facility] 06/17/2024 06/18/2024 8:4 3 AM EDT Narrative [facility] - 06/18/2024 Unless otherwise specified, test(s) performed at: [facility], [address] [place] [address] PAPER SUPERVISOR: Homero Garcia M.D. For any questions, please call customer service at FREQUENCY:MONTHLY Resulting Agency Comment Specimen source: Blood Car Mcdonald MD LAB BLOOD ORDERABLES Final Re sult Performing Organization Address [facility] de Phone Number [email or web address] See order comments or contact performing lab Unknown, [place] * (ABNORMAL) [facility] Chemistry (06/17/2024) Only the most recent of7 resultswithin the time period is included. PTH 584(H) 16 - 80 pg/mL [facility] 06/17/2024 06/18/2024 8:3 9 AM EDT Narrative [facility] - 06/18/2024 Unless otherwise specified, test(s) performed at: [facility], [address] [place] [address] PAPER SUPERVISOR: Homero Garcia M.D. For any questions, please call customer service at FREQUENCY:MONTHLY Resulting Agency Comment Specimen source: Plasma Car Mcdonald MD LAB BLOOD ORDERABLES Final Re sult Performing Organization Address [facility]/ZIP Co de Phone Number [email or web address] See order comments or contact performing lab Unknown, [place] * [facility] Results (05/01/2024) Only the most recent of3 resultswithin the time period is included. eKt/V (Tattersall) 0.87 [facility] eKdrt/V 0.85 [facility] eNPCR 1.07 [facility] spKt/V Gotch 1.12 [facility] ge [facility] PCR 74.63 [facility] nPCR_HD 1.23 [facility] eKt/V Gotch 0.85 [facility] spKt/V (Daugirdas II) 1.10 [facility] WSTDKT/V 2.0 [facility] 05/01/2024 05/01/2024 María Ordering Provider LAB BLOOD ORDERABLES Final Result Performing Organization Address City/State/[facility] Co de Phone Number [facility] Contact Performing lab Unknown, [place] from Last 3 Months Insurance [place] Member Subscriber Plan / Payer (Ef fective 2020-Present) Name:Beau Marie Relation to Subscriber:Self Name:Beau Marie Payer ID:Not on file Group ID:Not on file Type:Not on file Address: [address] [place] [address] UHC Medicare Medicaid [place] [facility] Medicare Member Subscriber Plan / Payer (Ef fective 2022-) Name:Nicko Mariero Relation to Subscriber:Self Name:Nicko Mariero Payer ID:[id number] (NAIC) Type:Not on file Address: [place] [phone] UHC Medicare Member Subscriber Plan / Payer (Ef fective 2022-Present) Name:Nicko Mariero Relation to Subscriber:Self Name:Beau Marie Payer ID:[id number] (NAIC) Type:Not on file Address: [place] [phone] Medicaid [place] Care Teams Product Trainer Relationship Specialty Start Date End Date Jade Lewis MD [address] [place] [address] PCP - General Internal Medicine 04/25/22
--- OUTSIDE RECORDS SUMMARY | 2024-06-18 16:12 | XMS_ITS | Encounter Summary ---
Author Organization [facility], Address [address] [place] [address] Phone Care Team Providers Care Radiosonde Specialist Name Role Phone Jade Lewis MD Primary Care Provider [phone] Reason for Visit * Reason Comments Med Refill Encounter Details Date Type Department Care Team (Late st Contact Info) Description 09/17/2022 Refill [facility] [address] [place] [address] Malcolm Taylor MD [address] [place] [address] [place] [address] Social History Tobacco Use Types Packs/Day Years [...] on filedocumented in this encounter Care Teams Radiosonde Specialist Relationship Specialty Start Date End Date Jade Lewis MD [address] [place] [address] PCP - General Internal Medicine 04/25/22 documented as of this encounter
== END 2024-06-18 14:24 | disposition home or self-care (01) ==
LOC: HO.HVS 13:16
PROVIDERS: PCP Internal Medicine; Visit Provider Physician Assistant Surgical
DX: T87.9 Unspecified complications of amputation stump (principal)
CPT/HCPCS: 99024

== ENCOUNTER → 2024-06-18 13:16 | Outpatient (BNVA) | payer MEDICARE, MEDICAID, SELFPAY | PROVIDERS: PCP Internal Medicine; Visit Provider Physician Assistant Surgical | DX: Z13.89 Encounter for screening for other disorder (principal) ==

== ENCOUNTER 2024-06-18 15:10 | Emergency (ER) | payer MEDICARE, MEDICAID, SELFPAY ==
--- NOTE | ~2024-06-18 | XR_ITS ---
EXAMINATION: XR KNEE, RIGHT CLINICAL INFORMATION: bka stump pain and redness. COMPARISON: None available. TECHNIQUE: Four views of the right knee. FINDINGS: There has been a right mhjnl-[id number]-[id number] amputation. The osteotomy site appears sharp, well marginated, without permeative bone changes to suggest radiographic changes of osteomyelitis. No bone lesions or fractures. Soft tissues demonstrate irregularity at the distal stump, possibly postsurgical change. There are diffuse, extensive vascular calcifications. XR/XR knee RT 2V IMPRESSION: 1. Ibhie-exm-uqti amputation with no definite radiographic changes of osteomyelitis. 2. Extensive soft tissue vascular calcification. Electronically signed by: Morro Van MD 06/18/2024 04:57 PM EDT RP
[2024-06-18 15:37] VITALS: BP 106/85; PULSE 66; RESP 16; TEMP 36.7; O2SAT 97; BMI 22.3
--- NOTE | 2024-06-18 15:49 | ED.GENADULT ---
HPI - General Adult General Chief complaint: Extremity Problem Stated complaint: Leg pain Time Seen by Provider: 06/18/24 17:47 Source: patient, family and EMS Mode of arrival: EMS Limitations: no limitations History of Present Illness ED Provider: SHAE HLIL narrative: 69 yo male with PMH of hydralazine vasculitis, ESRD on HD MWF, DM, PVD, CHF, HTN, HLD, ROBERT on CPAP, respiratory failure on 2L NC at home, s/p R BKA on 04/11/24 with Kassandra he has had a prolonged course of dehiscence and poor wound healing given his underlying medical issues. He has been maintained on doxycycline. He has been debrided in the office on 06/06 and today with Arslan VALENCIA. He comes in today after the visit for a second opinion and is upset as he has new wounds on the left leg and his 1st and 2nd fingers on R hand are now gangrene. He has never been told he has beurger's disease. He denies fevers. He does feel the wound smells. complaint: poor wound healing Onset (ago): month(s) (2) Location: right and lower extremity Radiation: non-radiation Severity: moderate Quality: aching Pain Consistency: intermittent Relieving factors: none Exacerbating factors: none Associated symptoms: denies other symptoms Treatments prior to arrival: other (just saw vascular surgery today) Related Data Home Medications ?Medication ?Instructions ?Recorded ?Confirmed allopurinol 100 mg tablet 100 mg PO MOWEFR@1600 04/19/22 05/26/24 atorvastatin 40 mg tablet 40 mg PO SUTUTHSA@0900 04/19/22 05/26/24 doxazosin 4 mg tablet 4 mg PO BEDTIME 04/19/22 05/26/24 furosemide 80 mg tablet 80 mg PO SUTUTHSA@0900 04/19/22 05/26/24 omeprazole 20 mg capsule,delayed 20 mg PO DAILY@0630 04/19/22 05/26/24 release insulin lispro 100 unit/mL See Rx Instructions .Route .COMPLEX 04/10/23 05/26/24 subcutaneous pen aspirin 81 mg tablet,delayed 81 mg PO SUTUTHSA@0900 06/20/23 05/26/24 release pregabalin 75 mg capsule 75 mg PO TID 06/20/23 05/26/24 sucroferric oxyhydroxide 500 mg 500 mg PO TIDWM 01/24/24 05/26/24 chewable tablet (Velphoro) aspirin 81 mg tablet,delayed 81 mg PO MOWEFR@1600 04/05/24 05/26/24 release atorvastatin 40 mg tablet 40 mg PO MOWEFR@1600 04/05/24 05/26/24 fluticasone fur. 100 mcg-umeclid 1 inh inhalation DAILY 04/05/24 05/26/24 62.5 mcg-vilant 25 mcg inhalat.powder (Trelegy Ellipta) furosemide 80 mg tablet 80 mg PO MOWEFR@1600 04/05/24 05/26/24 losartan 25 mg tablet 25 mg PO MOWEFR@1600 04/05/24 05/26/24 losartan 25 mg tablet 25 mg PO SUTUTHSA@0900 04/05/24 05/26/24 insulin glargine 100 unit/mL (3 22 unit subcut BEDTIME 05/01/24 05/26/24 mL) subcutaneous pen (Lantus Solostar U-100 Insulin) acetaminophen 500 mg tablet 1,000 mg PO Q8H PRN Pain 05/26/24 05/26/24 amlodipine 10 mg tablet 10 mg PO DAILY 05/26/24 05/26/24 calcium carbonate (Calcium 500) 500 mg PO TID 05/26/24 05/26/24 carvedilol 12.5 mg tablet 12.5 mg PO BID 05/26/24 05/26/24 docusate sodium 100 mg capsule 100 mg PO DAILY 05/26/24 05/26/24 doxycycline monohydrate 100 mg 100 mg PO BID 05/26/24 05/26/24 capsule insulin lispro 100 unit/mL See Rx Instructions .Route .COMPLEX 05/26/24 05/26/24 subcutaneous solution (Humalog U-100 Insulin) levetiracetam 1,000 mg tablet 1,000 mg PO BID 05/26/24 05/26/24 (Keppra) tramadol 25 mg tablet 25 mg PO Q6H PRN Severe Pain 05/26/24 05/26/24 (Scale Score 7-10) Previous Rx's ?Medication ?Instructions ?Recorded PleurX catheter drainage kits #10 ea 10/17/23 doxycycline monohydrate 100 mg 100 mg PO DAILY 10 days #10 caps 05/27/24 capsule Allergies Allergy/AdvReac Type Severity Reaction Status Date / Time Iodinated Contrast Media Allergy Severe Facial Verified 06/18/24 15:40 [Contrast Dye] Swelling hydralazine AdvReac Severe vasculitis Verified 06/18/24 15:40 Review of Systems Review of Systems: Constitutional : No Fever, No Chills ENT/Mouth : No sore throat, No Rhinorrhea Eyes: No Eye Pain, No Swelling, No Redness Cardiovascular : No Chest Pain, No SOB Respiratory : No Cough, No Sputum Gastrointestinal : No Nausea, No Vomiting, No Diarrhea, No abdominal Pain Genitourinary : No Dysuria, No Hematuria Musculoskeletal : pos joint pain, No Myalgias, No Joint Swelling Skin : pos Skin Lesions, positive skin rash Neuro : No Weakness, No Numbness, No Headache Psych : No Anxiety, No Depression Heme/Lymph: No Bruising, No Bleeding,No Lymphadenopathy Endocrine : No Polyuria, No Polydipsia All other systems reviewed and are negative PMFSH Past Medical History Attestation statement: The following information was validated with the patient. Source: old records reviewed Medical History Type 2 diabetes mellitus Dry gangrene PVD (peripheral vascular disease) ESRD needing dialysis Above knee amputation of right lower extremity Left ventricular systolic dysfunction (LVSD) Postop check Acute pericardial effusion Right sided weakness Dehiscence of wound Peripheral arterial disease Cellulitis of right foot Hypertension HFrEF (heart failure with reduced ejection fraction) ESRD (end stage renal disease) Chronic combined systolic and diastolic CHF (congestive heart failure) Chronic pericardial effusion Arthritis Asthma Restless leg syndrome Acute on chronic systolic and diastolic heart failure, NYHA class 3 Anemia ESRD (end stage renal disease) Occlusive thrombus Pulmonary edema ROBERT (obstructive sleep apnea) Hyperlipidemia Hypertension A-V fistula ESRD on dialysis Falling Surgical History Status post creation of pericardial window Postop check Hx of right BKA Status post transmetatarsal amputation of right foot History of transmetatarsal amputation of foot History of surgery H/O colonoscopy Recurrent pleural effusion Pleural effusion on right (07/13/23) Family History Family History Father No problems noted. Mother No problems noted. Social History Social History Household Members: Children Household Members Other:: son Housing: Apartment Are you a primary critical care cns to a significant other at home: No Do you presently have visiting nurse or other home services: No Alcohol intake: former Comment: n Patient Tobacco Use Status: Former Tobacco user Tobacco use type: Cigarette Second Hand Smoke Exposure: No Advance Directives: Yes Advance Directives on File: Yes Advance Directives Date on File: 10/04/23 service: No Current occupational status: disabled 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 Physical Exam ED Vital Signs: Vital Signs - 24 hr 06/18/24 15:37 06/18/24 17:50 06/18/24 17:51 Temperature 98.0 F 97.7 F Pulse Rate 66 67 68 Respiratory Rate 16 16 18 Blood Pressure 106/85 221/90 H 239/86 H Pulse Oximetry 97 96 96 Oxygen Delivery Method Room Air Room Air Room Air 06/18/24 19:08 06/18/24 19:27 Temperature 98.2 F 98.2 F Pulse Rate 72 72 Respiratory Rate 20 20 Blood Pressure 220/93 H 220/93 H Pulse Oximetry 94 94 Oxygen Delivery Method Room Air Room Air BMI result Body Mass Index 22.3 Appearance: Alert. Oriented X3. No acute distress. agitated but son is able to manage his symptoms Eyes: Pupils equal, round and reactive to light. ENT: Pharynx normal. Neck: Normal inspection. Neck supple. CVS: Normal heart rate and rhythm. Pulses normal. Respiratory: No respiratory distress. Breath sounds normal. Abdomen: Soft and nontender. Skin: Skin warm and dry. Normal skin color. Normal skin turgor. Extremities: No lower extremity edema. has dry gangrene of R 1st and 2nd digits, no signs of infection, chronic purple patches on L leg with dark ulcerated area but no edema/cellulitis/drainage there is a mild faint odor to the R stump but it is debrided down to viable tissue it is dehisced as well Neuro: Oriented X 3. No motor deficit. No sensory deficit. CN2-12 intact Course Course Course Narrative: RME: 69-year-old male ESRD status post right [id number] amputation presents to ED for right stump pain. Patient just left Dr. Valdes office where he had it drained but patient did not want wound closed. Exam patient has surrounding erythema incident drainage. Labs x-ray ordered. Medications Administered Discontinued Medications Generic Name Dose Route Start Last Admin Trade Name Veena PRN Reason Stop Dose Admin Oxycodone HCl 10 mg 06/18/24 18:09 06/18/24 18:24 Oxycodone Hcl Immed Release 5 Mg Tablet PO 06/18/24 18:10 10 mg ONCE ONE Administration Medical Decision Making Medical Decision Making [facility] Narrative: 69 yo male with PMH of hydralazine vasculitis, ESRD on HD MWF, DM, PVD, CHF, HTN, HLD, ROBERT on CPAP, respiratory failure on 2L NC at home, s/p R BKA on 04/11/24 with Kassandra he is on chronic doxy and has no fevers he c/o wanting 2nd opinion at this time I am going to order a wound culture, treat his pain and defer to vascular there is no obvious acute infection. He has chronic ds, poor wounds I did give him and son expectations that this will take a very long time to heal. Differential Diagnosis Differential Diagnoses: The differential diagnosis associated with the presentation includes poor wound healing, dehiscence Admission/Observation Consideration of admission/observation: Escalation of care including admission/observation considered improved stable for DC Consult Healthcare Provider Management of the patient was discussed with: Applications Analyst (deirdre notify Arslan VALENCIA from vascular of plan they will follow up outpatient) Lab Data [facility] Lab Attestation statement: I reviewed the patient's lab results. 06/18/24 15:57 06/18/24 15:57 Labs: Lab Results 06/18/24 Range/Units 15:57 WBC 8.9 (4.8-10.8) X10*3/uL RBC 4.05 L (4.60-5.80) X10*6/uL Hgb 9.5 L (14.0-18.0) g/dl Hct 31.3 L (42.0-52.0) % MCV 77.3 L (80.0-98.0) fL MCH 23.5 L (27.0-33.0) pg MCHC 30.4 L (31.0-36.0) g/dl RDW 17.2 H (11.0-16.0) % Plt Count 315 D (160-400) X10*3/uL MPV 11.6 (9.4-12.4) fL Immature Gran % (Auto) 0.3 (0.0-0.4) % Neut % (Auto) 72.0 (45-73) % Lymph % (Auto) 16.9 L (20-40) % [place] % (Auto) 8.5 (2-11) % Eos % (Auto) 1.9 (0-4) % Baso % (Auto) 0.4 (0-2) % Lymph # (Auto) 1.5 (1.2-4.9) X10*3/uL [place] # (Auto) 0.8 (0.1-1.2) X10*3/uL Eos # (Auto) 0.2 (0.0-0.4) X10*3/uL Baso # (Auto) 0.0 (0.0-0.2) X10*3/uL Abs Immat Gran (auto) 0.03 (0.00-0.03) X10*3/uL Absolute Neuts (auto) 6.4 (2.0-8.3) x10*3/uL Absolute Nucleated RBC 0.000 (0.0-0.012) X10*3/uL Nucleated RBC % (auto) 0.0 (0.0-0.2) /100WBC ESR 52 H (0-15) MM/HR Sodium 138 (135-145) mmol/L Potassium 4.5 (3.3-5.1) mmol/L Chloride 99 (96-108) mmol/L Carbon Dioxide 26 (22-29) mmol/L Anion Gap 18 (12-20) BUN 45 H (9-16) mg/dL Creatinine 5.89 H* (0.5-1.4) mg/dL Estim Creat Clear Calc 10.0 Estimated GFR 10 Random Glucose 374 H* (60-115) mg/dL Calcium 8.3 L D (8.4-10.2) mg/dL Total Bilirubin 0.4 (0.0-1.0) mg/dL AST 23 (5-37) U/L ALT 14 (0-40) U/L Alkaline Phosphatase 132 H (39-117) U/L C-Reactive Protein 5.88 H (< or = 0.50) mg/dL Total Protein 7.1 (6.5-8.0) g/dL Albumin 3.4 L (3.5-5.0) g/dL Independent Interpretation I performed an independent interpretation of an: Plain X-Ray (no change) Radiology Impression Discussion of test interpretation with radiology: I have reviewed the radiologist's reading. Independent Historian Clinical information obtained from an independent historian. History obtained from or confirmed by: Other (son) External Record Review External record reviewed: Inpatient record and Outpatient record Discharge Plan Discharge Clinical Impression: Dehiscence of wound Patient Disposition: Home, Self-Care Instructions: Below the Knee Amputation (DC) Additional Instructions: continue to follow up with frequent vascular visits for wound care we did send off a wound culture if positive we will call you i did notifiy the vascular team about your findings today return for any worsening symptoms or concerns. Prescriptions: No Action (DME) PleurX catheter drainage kits 1000cc kits See Rx Instructions .Route .MEDSUPPLY Qty: 10 6RF Rx Instructions: As directed atorvastatin 40 mg tablet 40 mg PO SUTUTHSA@0900 allopurinol 100 mg tablet 100 mg PO MOWEFR@1600 Rx Instructions: GIVE AFTER DIALYSIS furosemide 80 mg tablet 80 mg PO SUTUTHSA@0900 omeprazole 20 mg capsule,delayed release(DR/EC) 20 mg PO DAILY@0630 doxazosin 4 mg tablet 4 mg PO BEDTIME Velphoro 500 mg tablet,chewable 500 mg PO TIDWM insulin lispro 100 unit/mL insulin pen See Rx Instructions .ROUTE .COMPLEX Rx Instructions: 1 sliding scale dose subcutaneously TIDAC on SUTUTHSA;200-249 - 2 UNITS 250-299 4 UNITS, 300-349 6 UNITS 350-439 8 UNITS 400+ CALL aspirin 81 mg tablet,delayed release (DR/EC) 81 mg PO SUTUTHSA@0900 pregabalin 75 mg capsule 75 mg PO TID atorvastatin 40 mg tablet 40 mg PO MOWEFR@1600 aspirin 81 mg Tablet,Delayed Release (Dr/Ec) 81 mg PO MOWEFR@1600 furosemide 80 mg tablet 80 mg PO MOWEFR@1600 losartan 25 mg tablet 25 mg PO MOWEFR@1600 Trelegy Ellipta 100-62.5-25 mcg Blister With Device 1 inh INHALATION DAILY losartan 25 mg tablet 25 mg PO SUTUTHSA@0900 Protocol: Hold for SBP< HOLD for SBP < : 90 insulin glargine [Lantus Solostar U-100 Insulin] 100 unit/mL (3 mL) insulin pen 22 unit subcut BEDTIME carvedilol 12.5 mg Tablet 12.5 mg PO BID Rx Instructions: must administer with a meal/food acetaminophen 500 mg Tablet 1,000 mg PO Q8H PRN (Reason: Pain) amlodipine 10 mg Tablet 10 mg PO DAILY doxycycline monohydrate 100 mg Capsule 100 mg PO BID Rx Instructions: END DATE: 05/27/24 docusate sodium 100 mg Capsule 100 mg PO DAILY calcium carbonate [Calcium 500] 500 mg calcium (1,250 mg) Tablet,Chewable 500 mg PO TID insulin lispro [Humalog U-100 Insulin] 100 unit/mL Solution See Rx Instructions .ROUTE .COMPLEX Rx Instructions: 1 sliding scale dose subcutaneously twice daily with meals on MOWEFR; 200-249 - 2 UNITS 250-299 4 UNITS, 300-349 6 UNITS 350-439 8 UNITS 400+ CALL levetiracetam [Keppra] 1,000 mg Tablet 1,000 mg PO BID tramadol 25 mg Tablet 25 mg PO Q6H PRN (Reason: Severe Pain (Scale Score 7-10)) Rx Instructions: END DATE: 06/03/24 doxycycline monohydrate 100 mg capsule 100 mg PO DAILY 10 Days Qty: 10 0RF Interventions: ED Discharge Assessment Last Done: 06/18/24 19:27 Discharge Date/Time: 06/18/24 19:27 Print Language: Welsh
[2024-06-18 16:02] LABS: MANUAL DIFF FLAG NO
[2024-06-18 16:09] LABS: Basophils Percent Auto 0.4 % (0-2); Eosinophils Absolute Auto 0.2 X10*3/uL (0.0-0.4); Eosinophils Percent Auto 1.9 % (0-4); Hematocrit 31.3 % (42.0-52.0); Hemoglobin 9.5 g/dl (14.0-18.0); Imm Gran Abs Auto 0.03 X10*3/uL (0.00-0.03); Imm Gran Pct Auto 0.3 % (0.0-0.4); Lymphocytes Absolute Auto 1.5 X10*3/uL (1.2-4.9); Lymphocytes Percent Auto 16.9 % (20-40); Mean Corpuscular HGB Conc 30.4 g/dl (31.0-36.0); Mean Corpuscular Hemoglobin 23.5 pg (27.0-33.0); Mean Corpuscular Volume 77.3 fL (80.0-98.0); Mean Platelet Volume 11.6 fL (9.4-12.4); Monocytes Absolute Auto 0.8 X10*3/uL (0.1-1.2); Monocytes Percent Auto 8.5 % (2-11); Neutrophils Absolute Auto 6.4 x10*3/uL (2.0-8.3); Platelet Count 315 X10*3/uL (160-400); Red Blood Count 4.05 X10*6/uL (4.60-5.80); Red Cell Distribution Width 17.2 % (11.0-16.0); White Blood Count 8.9 X10*3/uL (4.8-10.8)
[2024-06-18 16:33] LABS: Alanine Aminotransferase 14 U/L (0-40); Albumin Level 3.4 g/dL (3.5-5.0); Anion Gap 18 (12-20); Aspartate Amino Transferase 23 U/L (5-37); Bilirubin Total 0.4 mg/dL (0.0-1.0); Blood Urea Nitrogen 45 mg/dL (9-16); C Reactive Protein 5.88 mg/dL (< or = 0.50); Calcium 8.3 mg/dL (8.4-10.2); Carbon Dioxide 26 mmol/L (22-29); Chloride 99 mmol/L (96-108); Estimated Glomerular Filt Rate 10; Glucose Random 374 mg/dL (60-115); Potassium 4.5 mmol/L (3.3-5.1); Sodium 138 mmol/L (135-145); Total Protein 7.1 g/dL (6.5-8.0)
[2024-06-18 16:57] LABS: Erythrocyte Sedimentation Rate 52 MM/HR (0-15)
[2024-06-18 17:50] VITALS: BP 221/90; PULSE 67; RESP 16; TEMP 36.5; O2SAT 96
[2024-06-18 17:51] VITALS: BP 239/86; PULSE 68; RESP 18; O2SAT 96
[2024-06-18 18:03] LABS: Alkaline Phosphatase 132 U/L (39-117)
[2024-06-18] MEDS: oxyCODONE HCl Immed Release 5 MG TABLET 10 MG PO (18:24)
[2024-06-18 19:08] VITALS: BP 220/93; PULSE 72; RESP 20; TEMP 36.8; O2SAT 94
--- OUTSIDE RECORDS SUMMARY | 2024-06-18 19:12 | XMS_ITS | Encounter Summary ---
Author Organization [facility], Address [address] [place] [address] Phone Care Team Providers Care Lockstitch Hemmer Name Role Phone Jade Lewis MD Primary Care Provider [phone] Reason for Visit * Reason Comments Med Refill Encounter Details Date Type Department Care Team (Late st Contact Info) Description 05/22/2023 Refill [facility] [address] [place] [phone] Car Mcdonald MD [facility] [place] [address] Social History Tobacco Use Types Packs/Day Years [...] on filedocumented in this encounter Care Teams Lockstitch Hemmer Relationship Specialty Start Date End Date Jade Lewis MD [address] [place] [address] PCP - General Internal Medicine 04/25/22 documented as of this encounter
--- OUTSIDE RECORDS SUMMARY | 2024-06-18 19:12 | XMS_ITS | Encounter Summary ---
Author Organization [facility] Address [address] [place] [address] Care Team Providers Care Heart Specialist Name Role Phone Cass Turcios MD Primary Care Provider [phone] Encounter Details Date Type Department Care Team (Late st Contact Info) Description 03/25/2024 Lab Requisition [facility] - Main Lab [address] [facility] [place] [address] Cass Turcios MD [address] [place] [address] Anemia, unspecified; Chronic diastolic (congestive) heart failure [...] mmol/L LAB CHEMISTRY METHOD 03/25/2024 2:44 PM [facility] Potassium 7.3(HH) 3.5 - 5.5 mmol/L LAB CHEMISTRY METHOD 03/25/2024 2:44 PM [facility] Chloride 101 96 - 110 mmol/L LAB CHEMISTRY METHOD 03/25/2024 2:44 PM [facility] CO2 15(L) 21 - 32 mmol/L LAB CHEMISTRY METHOD 03/25/2024 2:44 PM [facility] Anion Gap 17(H) 3 - 11 LAB CHEMISTRY METHOD 03/25/2024 2:44 PM [facility] Glucose 62(L) 70 - 100 mg/dL LAB CHEMISTRY METHOD 03/25/2024 2:44 PM [facility] BUN 112(H) 5 - 25 mg/dL LAB CHEMISTRY METHOD 03/25/2024 2:44 PM [facility] Creatinine 12.80(HH) 0.70 - 1.30 mg/dL LAB CHEMISTRY METHOD 03/25/2024 2:44 PM [facility] eGFR 4(L) >=60 mL/min/1 .73m2 LAB CHEMISTRY METHOD 03/25/2024 2:44 PM [facility] Comment:Calculation based on the??Chronic Kidney Disease Epidemiology Collaboration (CKD-EPI) equation refit??without adjustment for race. BUN/Creatinine Ratio 8.8 LAB CHEMISTRY METHOD 03/25/2024 2:44 PM [facility] Calcium 8.8 8.5 - 10.5 mg/dL LAB CHEMISTRY METHOD 03/25/2024 2:44 PM EST [facility] AST (SGOT) 21 10 - 42 unit/L LAB CHEMISTRY METHOD 03/25/2024 2:44 PM [facility] ALT (SGPT) 9(L) 10 - 60 unit/L LAB CHEMISTRY METHOD 03/25/2024 2:44 PM [facility] Alkaline Phosphatase 172(H) 42 - 121 unit/L LAB CHEMISTRY METHOD 03/25/2024 2:44 PM [facility] Total Protein 6.9 6.0 - 8.0 g/dL LAB CHEMISTRY METHOD 03/25/2024 2:44 PM [facility] Albumin 2.7(L) 3.2 - 5.0 g/dL LAB CHEMISTRY METHOD 03/25/2024 2:44 PM [facility] Total Bilirubin 0.4 0.0 - 1.4 mg/dL LAB CHEMISTRY METHOD 03/25/2024 2:44 PM [facility] Blood Venous blood specimen / Unknown Venipuncture / Unknown 03/25/2024 5:09 AM EST 03/25/2024 11:52 AM EST us Cass Turcios MD LAB BLOOD ORDERABLES Final Resul t [facility] [address] [place] [address], * (ABNORMAL) Complete blood count (03/25/2024 5:09 AM EST) WBC 14.1(H) 4.8 - 10.8 K/mcL LAB HEMETOLOGY METHOD 03/25/2024 2:27 PM EST [facility] RBC 4.60 4.50 - 5.50 M/mcL LAB HEMETOLOGY METHOD 03/25/2024 2:27 PM [facility] Hemoglobin 10.5(L) 13.5 - 17.5 g/dL LAB HEMETOLOGY METHOD 03/25/2024 2:27 PM [facility] Hematocrit 35.9(L) 42.0 - 54.0 % LAB HEMETOLOGY METHOD 03/25/2024 2:27 PM [facility] MCV 77.7(L) 79.0 - 98.0 FL LAB HEMETOLOGY METHOD 03/25/2024 2:27 PM [facility] MCH 22.7(L) 27.0 - 32.0 pcg LAB HEMETOLOGY METHOD 03/25/2024 2:27 PM [facility] MCHC 29.2(L) 32.0 - 37.0 g/dL LAB HEMETOLOGY METHOD 03/25/2024 2:27 PM [facility] RDW 17.5(H) 11.0 - 15.0 % LAB HEMETOLOGY METHOD 03/25/2024 2:27 PM [facility] Platelets 254 130 - 400 K/mcL LAB HEMETOLOGY METHOD 03/25/2024 2:27 PM [facility] MPV LAB HEMETOLOGY METHOD 03/25/2024 2:27 PM [facility] Comment:Not Measured NRBC 0.0 <1.0 % LAB HEMETOLOGY METHOD 03/25/2024 2:27 PM [facility] NRBC Absolute 0.00 <0.10 K/mcL LAB HEMETOLOGY METHOD 03/25/2024 2:27 PM [facility] Blood Venous blood specimen / Unknown Venipuncture / Unknown 03/25/2024 5:09 AM EST 03/25/2024 11:52 AM EST Cass Turcios MD LAB BLOOD ORDERABLES Final Resul t [facility] [address] [place] [address], documented in this encounter Visit Diagnoses Diagnosis Anemia, unspecified Chronic diastolic (congestive) heart failure ([facility] V24, [facility] V28) Other pericardial effusion (noninflammatory) End stage renal disease ([facility] V24, [facility] V28) End stage renal disease documented in this encounter Additional Health Concerns Infection Onset Date Last Indicated Resolved Time Respiratory Rule-Out 03/25/2024 03/25/2024 025 8:14 PM EST documented as of this encounter Care Teams Heart Specialist Relationship Specialty Start Date End Date Cass Turcios MD [address] [facility] [address] [place] [address] PCP - General Geriatric Medicine 04/02/24 documented as of this encounter
--- OUTSIDE RECORDS SUMMARY | 2024-06-18 19:12 | XMS_ITS | Encounter Summary ---
Author Organization [facility], Address [address] [place] [address] Phone Care Team Providers Care Plant Tender Name Role Phone Jade Lewis MD Primary Care Provider [phone] Encounter Details Date Type Department Care Team (Late st Contact Info) Description 06/17/2024 Orders Only [facility] [address] [place] [address] Car Mcdonald MD [address] [place] [address] [place] [address] Social History Tobacco Use Types Packs/Day Years [...] Hemoglobin A1C 6.9(H) 4.8 - 5.9 % [facility] 06/17/2024 06/18/2024 8:4 3 AM EDT Narrative [facility]24 Unless otherwise specified, test(s) performed at: [facility], [address] [place] [address] EYEGLASS FRAME TRUER: Homero Garcia M.D. For any questions, please call customer service at FREQUENCY:MONTHLY Resulting Agency Comment Specimen source: Blood Car Mcdonald MD LAB BLOOD BANK TEST ORDERABLE S Final Result [facility] See order comments or contact performing lab Unknown, [place] * HD KINETICS (06/17/2024) Pathologist [facility] % Urea Reduction 79 65 - 80 % [facility] [place] 06/17/2024 06/18/2024 8:2 7 AM EDT Narrative Resulting Agency Comment Specimen source: Plasma Car Mcdonald MD LAB BLOOD ORDERABLES Final Re sult [facility] See order comments or contact performing lab Unknown, [place] * POST CHEMISTRY (06/17/2024) BUN Post Dialysis 19 6 - 19 mg/dL [facility] 06/17/2024 06/18/2024 8:2 7 AM EDT Narrative [facility] - 06/18/2024 Unless otherwise specified, test(s) performed at: [facility], [address] [place] [address] EYEGLASS FRAME TRUER: Homero Garcia M.D. For any questions, please call customer service at FREQUENCY:MONTHLY Resulting Agency Comment Specimen source: Plasma Car Mcdonald MD LAB BLOOD ORDERABLES Final Re sult Performing Organization Address [facility] [address]/[facility] Co de Phone Number [facility] See order comments or contact performing lab Unknown, [place] * (ABNORMAL) [facility] (06/17/2024) PTH 584(H) 16 - 80 pg/mL [facility] 06/17/2024 06/18/2024 8:3 9 AM EDT Narrative [facility] - 06/18/2024 Unless otherwise specified, test(s) performed at: [facility], [address] [place], [place] [id number] EYEGLASS FRAME TRUER: Homero Garcia M.D. For any questions, please call customer service at FREQUENCY:MONTHLY Resulting Agency Comment Specimen source: Plasma Car Mcdonald MD LAB BLOOD ORDERABLES Final Re sult Performing Organization Address [facility] [address]/[facility] Co de Phone Number [facility] See order comments or contact performing lab Unknown, [place] * IMMUNO CHEMISTRY (06/17/2024) Pathologist [facility] Hep B Surface Ag Negative Negative [facility] 06/17/2024 06/18/2024 8:4 0 AM EDT Narrative Resulting Agency Comment Specimen source: Serum Car Mcdonald MD LAB BLOOD ORDERABLES Final Re sult Performing Organization Address [facility] [address]/ZIP Co de Phone Number [facility] See order comments or contact performing [...] 06/17/2024 06/18/2024 8:4 0 AM EDT Narrative [facility] - 06/18/2024 Unless otherwise specified, test(s) performed at: [facility], [address] [place] [address] EYEGLASS FRAME TRUER: Homero Garcia M.D. For any questions, please call customer service at FREQUENCY:MONTHLY Resulting Agency Comment Specimen source: Serum us Car Mcdonald MD LAB BLOOD ORDERABLES Edited R esult - Final [place] [place] See order comments or contact performing lab [...] 06/18/2024 Unless otherwise specified, test(s) performed at: [facility], [address] [place], [place] [id number] EYEGLASS FRAME TRUER: Homero Garcia M.D. For any questions, please call customer service at FREQUENCY:MONTHLY Resulting Agency Comment Specimen source: Blood us Car Mcdonald MD LAB BLOOD ORDERABLES Final Re sult [facility] [place] See order comments or contact performing lab Unknown, [place] documented in this encounter Visit Diagnoses Not on filedocumented in this encounter Care Teams Plant Tender Relationship Specialty Start Date End Date Jade Lewis MD [address] [place] [address] PCP - General Internal Medicine 04/25/22 documented as of this encounter
--- OUTSIDE RECORDS SUMMARY | 2024-06-18 19:12 | XMS_ITS | Clinical Summary ---
Author Organization [facility] Address [address] [place] [address] 7 [place] [address] Care Team Providers Care Pastoral Assistant Name Role Phone Unavailable Primary Care Provider [...]
--- OUTSIDE RECORDS SUMMARY | 2024-06-18 19:12 | XMS_ITS | Encounter Summary ---
Author Organization [facility], Address [address] [place] [address] Phone Care Team Providers Care Creative Guru Name Role Phone Jade Lewis MD Primary Care Provider + [phone] Reason for Visit * Reason Comments Med Refill Encounter Details Date Type Department Care Team (Late st Contact Info) Description 04/27/2019 Refill [facility] [address] [place] [address] Mercedes Law MD Social History [...] on filedocumented in this encounter Care Teams Creative Guru Relationship Specialty Start Date End Date Jade Lewis MD [address] [place], [place] [id number] PCP - General Internal Medicine 04/25/22 documented as of this encounter
--- OUTSIDE RECORDS SUMMARY | 2024-06-18 19:12 | XMS_ITS | Encounter Summary ---
Author Organization [facility] Address [address] [place] [address] Care Team Providers Care Wrapper Cashier Name Role Phone Cass Turcios MD Primary Care Provider [phone] Encounter Details Date Type Department Care Team (Late st Contact Info) Description 06/06/2024 Lab Requisition [facility] - Main Lab [address] [facility] [place] [address] Laurence Florence MD [address] [place] [address] Cellulitis of right lower limb; End stage [...] mmol/L LAB CHEMISTRY METHOD 06/06/2024 8:59 AM [facility] Potassium 4.3 3.5 - 5.5 mmol/L LAB CHEMISTRY METHOD 06/06/2024 8:59 AM [facility] Chloride 106 96 - 110 mmol/L LAB CHEMISTRY METHOD 06/06/2024 8:59 AM [facility] CO2 27 21 - 32 mmol/L LAB CHEMISTRY METHOD 06/06/2024 8:59 AM [facility] Anion Gap 6 3 - 11 LAB CHEMISTRY METHOD 06/06/2024 8:59 AM [facility] Glucose 162(H) 70 - 100 mg/dL LAB CHEMISTRY METHOD 06/06/2024 8:59 AM [facility] BUN 28(H) 5 - 25 mg/dL LAB CHEMISTRY METHOD 06/06/2024 8:59 AM [facility] Creatinine 3.78(H) 0.70 - 1.30 mg/dL LAB CHEMISTRY METHOD 06/06/2024 8:59 AM [facility] eGFR 17(L) >=60 mL/min/1. 73m2 LAB CHEMISTRY METHOD 06/06/2024 8:59 AM [facility] Comment:Calculation based on the??Chronic Kidney Disease Epidemiology Collaboration (CKD-EPI) equation refit??without adjustment for race. BUN/Creatinine Ratio 7.4 LAB CHEMISTRY METHOD 06/06/2024 8:59 AM [facility] Calcium 9.1 8.5 - 10.5 mg/dL LAB CHEMISTRY METHOD 06/06/2024 8:59 AM [facility] Blood Venous blood specimen / Unknown Venipuncture / Unknown 06/06/2024 5:35 AM EDT 06/06/2024 8:10 AM EDT us Laurence Florence MD LAB BLOOD ORDERABLES Final Resu lt [facility] [address] [place] [address], [place] [phone] * (ABNORMAL) Complete blood count (06/06/2024 5:35 AM EDT) [facility] WBC 9.3 4.8 - 10.8 K/mcL LAB HEMETOLOGY METHOD 06/06/2024 8:35 AM EDT [facility] RBC 3.20(L) 4.50 - 5.50 M/mcL LAB HEMETOLOGY METHOD 06/06/2024 8:35 AM EDT [facility] Hemoglobin 7.6(L) 13.5 - 17.5 g/dL LAB HEMETOLOGY METHOD 06/06/2024 8:35 AM EDT [facility] Hematocrit 26.2(L) 42.0 - 54.0 % LAB HEMETOLOGY METHOD 06/06/2024 8:35 AM EDT [facility] MCV 80.9 79.0 - 98.0 FL LAB HEMETOLOGY METHOD 06/06/2024 8:35 AM EDT [facility] MCH 23.5(L) 27.0 - 32.0 pcg LAB HEMETOLOGY METHOD 06/06/2024 8:35 AM EDT [facility] MCHC 29.0(L) 32.0 - 37.0 g/dL LAB HEMETOLOGY METHOD 06/06/2024 8:35 AM EDT [facility] RDW 16.8(H) 11.0 - 15.0 % LAB HEMETOLOGY METHOD 06/06/2024 8:35 AM EDT [facility] Platelets 264 130 - 400 K/mcL LAB HEMETOLOGY METHOD 06/06/2024 8:35 AM EDT [facility] MPV 12.3(H) 7.0 - 11.0 FL LAB HEMETOLOGY METHOD 06/06/2024 8:35 AM EDT [facility] NRBC 0.0 <1.0 % LAB HEMETOLOGY METHOD 06/06/2024 8:35 AM EDT [facility] NRBC Absolute 0.00 <0.10 K/mcL LAB HEMETOLOGY METHOD 06/06/2024 8:35 AM EDT [facility] Blood Venous blood specimen / Unknown Venipuncture / Unknown 06/06/2024 5:35 AM EDT 06/06/2024 8:10 AM EDT us Laurence Florence MD LAB BLOOD ORDERABLES Final Resu lt [facility] [address] [place] [address], [place] [phone] documented in this encounter Visit Diagnoses Diagnosis Cellulitis of right lower limb End stage renal disease (CMS/HCC V24, CMS/HCC V28) End stage renal disease documented in this encounter Care Teams Wrapper Cashier Relationship Specialty Start Date End Date Cass Turcios MD [address] [place] [address] [address] [place] [address] PCP - General Geriatric Medicine 04/02/24 documented as of this encounter
--- OUTSIDE RECORDS SUMMARY | 2024-06-18 19:12 | XMS_ITS | Encounter Summary ---
Author Organization [facility], Address [address] [place] [address] Phone Care Team Providers Care Almond Paste Molder Name Role Phone Jade Lewis MD Primary Care Provider + [phone] Reason for Visit * Reason Comments Med Refill Encounter Details Date Type Department Care Team ([facility] st Contact Info) Description 06/25/2019 Refill [facility] [address] [place] [address] Mercedes Law MD Social History [...] on filedocumented in this encounter Care Teams Almond Paste Molder Relationship Specialty Start Date End Date Jade Lewis MD [address] [place], [place] [id number] PCP - General Internal Medicine 04/25/22 documented as of this encounter
--- OUTSIDE RECORDS SUMMARY | 2024-06-18 19:12 | XMS_ITS | Clinical Summary ---
Author Organization [facility] Address [address] [facility] [address] [place] [address] Phone Care Team Providers Care Staff Radiologist Name Role Phone Jade Lewis MD Primary Care Provider + [phone] Allergies Active Allergy Reactions Criticality Noted Date [...] FOR WHEEZING 1 Active ergocalciferol 1.25 MG (88963 UT) capsule Take 1 capsule (50,000 Units total) by mouth 1 (one) time per week 4 capsule 5 1 Active cetirizine (ZyrTEC) 10 MG tablet Take 10 mg by mouth 1 (one) time each day Active Fluticasone-Salm eterol 100-50 MCG/ACT aerosol powder [facility] - [place], [place] - [id number] [place] [phone] 60.00 Each 5 30 INHALE 1 PUFF [...] mouth daily. Prescribed by Dr. Car Mcdonald (solar installation supervisor). 2 Active aspirin (ST ANITRA) 81 MG [...] asthma 03/31/2022 Overview (09/15/2022): 08/19/21 Eval at [facility]. Increase Advair to 100/50 F/u 6 months. 05/24/22 Eval at [facility], Dr Funez. Recommends Trelegy once daily. Plan for sleep study to assess need for CPAP. 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 Permacath for dialysis removed and a new one replaced. Will get cefazolin x 4 weeks after dialysis. Lantus decreased to 30 units. Pt to continue on Eliquis for the next few weeks until his AV fistula is ready for utilization. Abdominal pain 03/19/2021 Bacteremia 03/19/2021 Venous thrombosis 01/04/2021 Overview (01/26/2021): 12/13/20-12/19/20 Admitted to [facility] for non-occulsive thrombosis in R internal jugular vein. Acute embolism and thrombosis of left internal j ugular vein 12/21/2020 End stage renal failure on dialysis 11/19/2020 Overview (10/05/2021): [facility] Hypocalcemia 11/13/2020 Angina pectoris 11/09/2020 Coagulation defect 11/09/2020 Headache 11/09/2020 Type 2 diabetes mellitus with diabetic nephropat hy 11/09/2020 Edema 09/28/2020 Iron deficiency anemia 12/24/2019 Chronic kidney disease stage 4 02/19/2019 Anemia in chronic kidney disease 02/19/2019 History of colonoscopy 03/30/2016 Overview (01/26/2021): Approximately 2010 in [place] per Pt 11/24/20 Eval at [facility], recommend colonoscopy. Resolved Problems Problem Noted [...] diabetes mellitus 06/12/2015 Overview (01/26/2021): Followed by [facility]. Last visit 06/23/15, HbA1c = 11.1%. Has diabetic nephropathy, retinopathy, and peripheral neuropathy. Switched to Novolin 70/30. Taking 23 units TID with meals, may titrate up/down depending on BG readings over the next few days. They are trying to submit PA for Lyrica. 04/27/16 F/u with Estefani Kaur, DO at [facility]. Titrate Novolog 70/30 to 22 units with breakfast, 30 units with dinner. If no improvement or if ongoing hypoglycemia will consider switchign to Levemir and Humalog; F/u 3 months 11/03/20 F/u [facility]. A1c > 12% Continue Lanuts 52 and Humalog 4-8 untsi with meals. Consider using NPH during peritoneal dialysis Encounters Date Type Department Care Team Description 06/17/2024 Orders Only [facility] [address] [address] Car Mcdonald MD 06/12/2024 Treatment [facility], [address] [place] [address] Donny Griggs MD End stage renal disease; Dependence on renal dialysis 05/01/2024 Orders Only [facility] [address] [address] Car Mcdonald MD 2024 Orders Only [facility] [address] [address] Car Mcdonald MD 2024 Treatment [facility], [address] [place] [address] Arely Hernández, DIRECTOR OF MANUFACTURING 04/24/2024 Treatment [facility] [address] [place] [address] Malcolm Taylor MD End stage renal disease; Dependence on renal dialysis 04/24/2024 Orders Only [facility] [address] [address] Car Mcdonald MD 04/22/2024 Orders Only [facility] [address] [address] Car Mcdonald MD 04/19/2024 Orders Only [facility] [address] [address] Car Mcdonald MD 04/19/2024 Treatment [facility] [address] [place] [address] Arely Hernández, DIRECTOR OF MANUFACTURING 04/05/2024 Treatment [facility] [address] [place] [address] Arely Hernández, DIRECTOR OF MANUFACTURING 04/03/2024 Orders Only [facility] [address] [address] Car Mcdonald MD 04/01/2024 Treatment [facility] [address] [place] [address] Malcolm Taylor MD 03/29/2024 Orders Only [facility] [address] [address] Car Mcdonald MD from Last 3 Months [...] at 66 Diabetes Mother Heart disease Mother [place] Stroke Mother grandfather Hypertension Sibling 1 Kidney [...] LAB BLOOD ORDERABLES Final Re sult [facility] See order comments or contact performing lab Unknown, [place] * (ABNORMAL) SPECIAL CHEMISTRY (06/17/2024) Hemoglobin A1C 6.9(H) 4.8 - 5.9 % [facility] 06/17/2024 06/18/2024 8:4 3 AM EDT Narrative [facility] - 06/18/2024 Unless otherwise specified, test(s) performed at: [facility], [address] [place], [place] [id number] POT FIRER: Homero Garcia M.D. For any questions, please call customer service at FREQUENCY:MONTHLY Resulting Agency Comment Specimen source: Blood Car Mcdonald MD LAB BLOOD BANK TEST ORDERABLE S Final Result Performing Organization Address [facility] de Phone Number [facility] See order comments or contact performing lab Unknown, [place] * POST CHEMISTRY (06/17/2024) Only the most recent of4 resultswithin the time period is included. Pathologist [facility] BUN Post Dialysis 19 6 - 19 mg/dL [facility] 06/17/2024 06/18/2024 8:2 7 AM EDT Narrative [facility] - 06/18/2024 Unless otherwise specified, test(s) performed at: [facility], [address] [place] [id number] POT FIRER: Homero Garcia M.D. For any questions, please call customer service at FREQUENCY:MONTHLY Resulting Agency Comment Specimen source: Plasma Car Mcdonald MD LAB BLOOD ORDERABLES Final Re sult Performing Organization Address [facility] de Phone Number [facility] See order comments or contact performing lab Unknown, [place] * IMMUNO CHEMISTRY (06/17/2024) Only the most recent of2 resultswithin the time period is included. Pathologist [facility] Hep B Surface Ag Negative Negative [facility] 06/17/2024 06/18/2024 8:4 0 AM EDT Narrative Resulting Agency Comment Specimen source: Serum Car Mcdonald MD LAB BLOOD ORDERABLES Final Re sult Performing Organization Address [facility] de Phone Number [facility] See order comments or contact performing lab [...] 06/18/2024 Unless otherwise specified, test(s) performed at: [facility], [address] [place] [address] POT FIRER: Homero Garcia M.D. For any questions, please call customer service at FREQUENCY:MONTHLY Resulting Agency Comment Specimen source: Blood Car Mcdonald MD LAB BLOOD ORDERABLES Final Re sult Performing Organization Address [facility] de Phone Number [facility] See order comments or contact performing lab Unknown, [place] * (ABNORMAL) [facility] Chemistry (06/17/2024) Only the most recent of7 resultswithin the time period is included. PTH 584(H) 16 - 80 pg/mL [facility] 06/17/2024 06/18/2024 8:3 9 AM EDT Narrative [facility] - 06/18/2024 Unless otherwise specified, test(s) performed at: [facility], [address] [place] [id number] POT FIRER: Homero Garcia M.D. For any questions, please call customer service at FREQUENCY:MONTHLY Resulting Agency Comment Specimen source: Plasma Car Mcdonald MD LAB BLOOD ORDERABLES Final Re sult Performing Organization Address [facility]/ZIP Co de Phone Number [facility] See order comments or contact performing lab Unknown, [place] * [facility] Results (05/01/2024) Only the most recent of3 resultswithin the time period is included. eKt/V (Tattersall) 0.87 [facility] eKdrt/V 0.85 [facility] eNPCR 1.07 [facility] spKt/V Gotch 1.12 [facility] ge Center PCR 74.63 [facility] nPCR_HD 1.23 [facility] eKt/V Gotch 0.85 [facility] spKt/V (Daugirdas II) 1.10 [facility] WSTDKT/V 2.0 [facility] 05/01/2024 05/01/2024 María Ordering Provider LAB BLOOD ORDERABLES Final Result Performing Organization Address City/State/[facility] Co de Phone Number MARÍA [facility] Contact Performing lab Unknown, [place] from Last 3 Months Insurance Medicaid [place] Member Subscriber Plan / Payer (Ef fective 2020-Present) Name:Beau Marie Relation to Subscriber:Self Name:Beau Marie Payer ID:Not on file Group ID:Not on file Type:Not on file Address: [address] [place] [address] UHC Medicare Medicaid [place] [facility] Medicare Member Subscriber Plan / Payer (Ef fective 2022-) Name:Nicko Mariero Relation to Subscriber:Self Name:Nicko Mariero Payer ID:[id number] (NAIC) Type:Not on file Address: [place] [phone] UHC Medicare Member Subscriber Plan / Payer (Ef fective 2022-Present) Name:Nicko Mariero Relation to Subscriber:Self Name:Beau Marie Payer ID:[id number] (NAIC) Type:Not on file Address: [place] [phone] Medicaid [place] Care Teams Staff Radiologist Relationship Specialty Start Date End Date Jade Lewis MD [address] [place] [address] PCP - General Internal Medicine 04/25/22
--- OUTSIDE RECORDS SUMMARY | 2024-06-18 19:12 | XMS_ITS | Encounter Summary ---
Author Organization [facility] Address [address] [place] [address] Phone Care Team Providers Care Miter Sawyer Name Role Phone Jade Lewis MD Primary Care Provider + [phone] Reason for Visit * Reason Comments Med Refill Encounter Details Date Type Department Care Team (Late st Contact Info) Description 07/23/2021 Refill [facility] [address] [place] [phone] Alejandro Santana MD [address] [place] [phone] Social History Tobacco Use Types Packs/Day Years [...] on filedocumented in this encounter Care Teams Miter Sawyer Relationship Specialty Start Date End Date Jade Lewis MD [address] [place] [address] PCP - General Internal Medicine 04/25/22 documented as of this encounter
--- OUTSIDE RECORDS SUMMARY | 2024-06-18 19:12 | XMS_ITS | Encounter Summary ---
Author Organization [facility] Address [address] [place] [address] Phone Care Team Providers Care Tariff Compiling Clerk Name Role Phone Jade Lewis MD Primary Care Provider + [phone] Reason for Visit * Reason Comments Med Refill Encounter Details Date Type Department Care Team (Late st Contact Info) Description 04/30/2021 Refill [facility] [address] [place] [phone] Alejandro Santana MD [address] [place] [phone] Social History Tobacco Use Types Packs/Day Years [...] on filedocumented in this encounter Care Teams Tariff Compiling Clerk Relationship Specialty Start Date End Date Jade Lewis MD [address] [place] [address] PCP - General Internal Medicine 04/25/22 documented as of this encounter
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
--- OUTSIDE RECORDS SUMMARY | 2024-06-18 19:12 | XMS_ITS | Encounter Summary ---
Author Organization [facility], Address [address] [place] [address] Phone Care Team Providers Care Architectural Engineer Name Role Phone Jade Lewis MD Primary Care Provider [phone] Reason for Visit * Reason Comments Med Refill Encounter Details Date Type Department Care Team (Late st Contact Info) Description 06/13/2023 Refill [facility] [address] [place] [phone] Malcolm Taylor MD [address] [place] [phone] Social History Tobacco Use Types Packs/Day Years [...] on filedocumented in this encounter Care Teams Architectural Engineer Relationship Specialty Start Date End Date Jade Lewis MD [address] [place] [address] PCP - General Internal Medicine 04/25/22 documented as of this encounter
--- OUTSIDE RECORDS SUMMARY | 2024-06-18 19:12 | XMS_ITS | Encounter Summary ---
Author Organization [facility], Address [address] [place] [address] Phone Care Team Providers Care Real Estate Broker Associate Name Role Phone Jade Lewis MD Primary Care Provider [phone] Encounter Details Date Type Department Care Team (Late st Contact Info) Description 10/28/2019 Orders Only [facility] [address] [phone] [place] [address] [place] [phone] Social History Tobacco Use Types Packs/Day Years [...] on filedocumented in this encounter Care Teams Real Estate Broker Associate Relationship Specialty Start Date End Date Jade Lewis MD [address] [place] [address] PCP - General Internal Medicine 04/25/22 documented as of this encounter
--- OUTSIDE RECORDS SUMMARY | 2024-06-18 19:12 | XMS_ITS | Encounter Summary ---
Author Organization [facility] Address [address] [place] [address] Care Team Providers Care Web Administrator Name Role Phone Cass Turcios MD Primary Care Provider [phone] Encounter Details Date Type Department Care Team (Latest Contact Info) Description 05/24/[address] [facility] [address] [facility] [place] [address] Laurence Florence MD [address] [place] [address] Chronic combined systolic (congestive) and diastolic (congestive) [...] mellitus without complications End stage renal disease ([facility]) BASIC METABOLIC PANEL Routine 05/24/2024 5:56 AM EDT Chronic combined systolic (congestive) and diastolic (congestive) heart failure Type 2 diabetes mellitus without complications End stage renal disease ([facility]) documented in this encounter Results * (ABNORMAL) CBC auto differential (05/24/2024 5:56 AM EDT) [facility] WBC 9.3 4.8 - 10.8 K/mcL LAB HEMETOLOGY METHOD 05/24/2024 9:31 AM [facility] RBC 3.40(L) 4.50 - 5.50 M/mcL LAB HEMETOLOGY METHOD 05/24/2024 9:31 AM [facility] Hemoglobin 8.5(L) 13.5 - 17.5 g/dL LAB HEMETOLOGY METHOD 05/24/2024 9:31 AM [facility] Hematocrit 28.2(L) 42.0 - 54.0 % LAB HEMETOLOGY METHOD 05/24/2024 9:31 AM [facility] MCV 82.0 79.0 - 98.0 FL LAB HEMETOLOGY METHOD 05/24/2024 9:31 AM [facility] MCH 24.7(L) 27.0 - 32.0 pcg LAB HEMETOLOGY METHOD 05/24/2024 9:31 AM [facility] MCHC 30.1(L) 32.0 - 37.0 g/dL LAB HEMETOLOGY METHOD 05/24/2024 9:31 AM [facility] RDW 17.8(H) 11.0 - 15.0 % LAB HEMETOLOGY METHOD 05/24/2024 9:31 AM [facility] Platelets 335 130 - 400 K/mcL LAB HEMETOLOGY METHOD 05/24/2024 9:31 AM [facility] MPV 10.5 7.0 - 11.0 FL LAB HEMETOLOGY METHOD 05/24/2024 9:31 AM [facility] NRBC 0.0 <1.0 % LAB HEMETOLOGY METHOD 05/24/2024 9:31 AM [facility] NRBC Absolute 0.00 <0.10 K/mcL LAB HEMETOLOGY METHOD 05/24/2024 9:31 AM [facility] Neutrophils Relative 67.5 % LAB HEMETOLOGY METHOD 05/24/2024 9:31 AM [facility] Lymphocytes Relative 16.4 % LAB HEMETOLOGY METHOD 05/24/2024 9:31 AM [facility] Monocytes Relative 10.6 % LAB HEMETOLOGY METHOD 05/24/2024 9:31 AM [facility] Eosinophils Relative 4.5 % LAB HEMETOLOGY METHOD 05/24/2024 9:31 AM [facility] Basophils Relative 0.4 % LAB HEMETOLOGY METHOD 05/24/2024 9:31 AM [facility] Immature Granulocytes Relative 0.6 % LAB HEMETOLOGY METHOD 05/24/2024 9:31 AM [facility] Neutrophils Absolute 6.24 1.50 - 7.00 K/mcL LAB HEMETOLOGY METHOD 05/24/2024 9:31 AM [facility] Lymphocytes Absolute 1.52 1.00 - 5.00 K/mcL LAB HEMETOLOGY METHOD 05/24/2024 9:31 AM [facility] Monocytes Absolute 0.98 0.20 - 1.00 K/mcL LAB HEMETOLOGY METHOD 05/24/2024 9:31 AM EDT [facility] Eosinophils Absolute 0.42 0.00 - 0.50 K/mcL LAB HEMETOLOGY METHOD 05/24/2024 9:31 AM EDT [facility] Basophils Absolute 0.04 0.00 - 0.20 K/mcL LAB HEMETOLOGY METHOD 05/24/2024 9:31 AM EDT [facility] Immature Granulocytes Absolute 0.06(H) 0.00 - 0.03 K/mcL LAB HEMETOLOGY METHOD 05/24/2024 9:31 AM EDT [facility] Blood Venous blood specimen / Unknown Venipuncture / Unknown 05/24/2024 5:56 AM EDT 05/24/2024 8:41 AM EDT us Laurence Florence MD LAB BLOOD ORDERABLES Final Resu lt [facility] [address] [place] [address], [place] [phone] * (ABNORMAL) Basic metabolic panel (05/24/2024 5:56 AM EDT) Sodium 134 133 - 145 mmol/L LAB CHEMISTRY METHOD 05/24/2024 9:53 AM [facility] Potassium 4.8 3.5 - 5.5 mmol/L LAB CHEMISTRY METHOD 05/24/2024 9:53 AM [facility] Chloride 100 96 - 110 mmol/L LAB CHEMISTRY METHOD 05/24/2024 9:53 AM [facility] CO2 26 21 - 32 mmol/L LAB CHEMISTRY METHOD 05/24/2024 9:53 AM [facility] Anion Gap 8 3 - 11 LAB CHEMISTRY METHOD 05/24/2024 9:53 AM [facility] Glucose 131(H) 70 - 100 mg/dL LAB CHEMISTRY METHOD 05/24/2024 9:53 AM EDT [facility] BUN 67(H) 5 - 25 mg/dL LAB CHEMISTRY METHOD 05/24/2024 9:53 AM EDT [facility] Creatinine 7.92(H) 0.70 - 1.30 mg/dL LAB CHEMISTRY METHOD 05/24/2024 9:53 AM EDT [facility] eGFR 7(L) >=60 mL/min/1. 73m2 LAB CHEMISTRY METHOD 05/24/2024 9:53 AM EDT [facility] Comment:Calculation based on the??Chronic Kidney Disease Epidemiology Collaboration (CKD-EPI) equation refit??without adjustment for race. BUN/Creatinine Ratio 8.5 LAB CHEMISTRY METHOD 05/24/2024 9:53 AM EDT [facility] Calcium 8.6 8.5 - 10.5 mg/dL LAB CHEMISTRY METHOD 05/24/2024 9:53 AM EDT [facility] Blood Venous blood specimen / Unknown Venipuncture / Unknown 05/24/2024 5:56 AM EDT 05/24/2024 8:41 AM EDT us Laurence Florence MD LAB BLOOD ORDERABLES Final Resu lt [facility] [address] [place] [address], documented in this encounter Visit Diagnoses Diagnosis Chronic combined systolic (congestive) and diastolic (congestive) heart failure (CMS/HCC V24, CMS/HCC V28) Type 2 diabetes mellitus without complications (CMS/HCC V24, CMS/HCC V28) End stage renal disease (CMS/HCC V24, CMS/HCC V28) End stage renal disease documented in this encounter Care Teams Web Administrator Relationship Specialty Start Date End Date Cass Turcios MD [address] [place], [place] [id number] [place] [address] PCP - General Geriatric Medicine 04/02/24 documented as of this encounter
--- OUTSIDE RECORDS SUMMARY | 2024-06-18 19:12 | XMS_ITS | Encounter Summary ---
Author Organization [facility] Address [address] [place] [address] Care Team Providers Care Dumping Machine Operator Name Role Phone Cass Turcios MD Primary Care Provider [phone] Encounter Details Date Type Department Care Team (Late st Contact Info) Description 05/31/2024 Lab Requisition [facility] - Main Lab [address] [facility] [place] [address] Laurence Florence MD [address] [place] [id number] End stage renal disease (CMS/HCC V24, CMS/HCC [...] CBC auto differential (05/31/2024 6:09 AM EDT) [facility] Signature WBC 10.9(H) 4.8 - 10.8 K/mcL LAB HEMETOLOGY METHOD 05/31/2024 10:13 AM [facility] RBC 3.20(L) 4.50 - 5.50 M/mcL LAB HEMETOLOGY METHOD 05/31/2024 10:13 AM [facility] Hemoglobin 7.7(L) 13.5 - 17.5 g/dL LAB HEMETOLOGY METHOD 05/31/2024 10:13 AM [facility] Hematocrit 26.1(L) 42.0 - 54.0 % LAB HEMETOLOGY METHOD 05/31/2024 10:13 AM [facility] MCV 81.8 79.0 - 98.0 FL LAB HEMETOLOGY METHOD 05/31/2024 10:13 AM [facility] MCH 24.1(L) 27.0 - 32.0 pcg LAB HEMETOLOGY METHOD 05/31/2024 10:13 AM [facility] MCHC 29.5(L) 32.0 - 37.0 g/dL LAB HEMETOLOGY METHOD 05/31/2024 10:13 AM [facility] RDW 17.8(H) 11.0 - 15.0 % LAB HEMETOLOGY METHOD 05/31/2024 10:13 AM [facility] Platelets 227 130 - 400 K/mcL LAB HEMETOLOGY METHOD 05/31/2024 10:13 AM [facility] MPV 10.6 7.0 - 11.0 FL LAB HEMETOLOGY METHOD 05/31/2024 10:13 AM [facility] NRBC 0.0 <1.0 % LAB HEMETOLOGY METHOD 05/31/2024 10:13 AM [facility] NRBC Absolute 0.00 <0.10 K/mcL LAB HEMETOLOGY METHOD 05/31/2024 10:13 AM [facility] Neutrophils Relative 69.5 % LAB HEMETOLOGY METHOD 05/31/2024 10:13 AM [facility] Lymphocytes Relative 19.2 % LAB HEMETOLOGY METHOD 05/31/2024 10:13 AM [facility] Monocytes Relative 8.4 % LAB HEMETOLOGY METHOD 05/31/2024 10:13 AM [facility] Eosinophils Relative 1.8 % LAB HEMETOLOGY METHOD 05/31/2024 10:13 AM [facility] Basophils Relative 0.5 % LAB HEMETOLOGY METHOD 05/31/2024 10:13 AM [facility] Immature Granulocytes Relative 0.6 % LAB HEMETOLOGY METHOD 05/31/2024 10:13 AM [facility] Neutrophils Absolute 7.60(H) 1.50 - 7.00 K/mcL LAB HEMETOLOGY METHOD 05/31/2024 10:13 AM [facility] Lymphocytes Absolute 2.10 1.00 - 5.00 K/mcL LAB HEMETOLOGY METHOD 05/31/2024 10:13 AM [facility] Monocytes Absolute 0.92 0.20 - 1.00 K/mcL LAB HEMETOLOGY METHOD 05/31/2024 10:13 AM [facility] Eosinophils Absolute 0.20 0.00 - 0.50 K/mcL LAB HEMETOLOGY METHOD 05/31/2024 10:13 AM [facility] Basophils Absolute 0.05 0.00 - 0.20 K/mcL LAB HEMETOLOGY METHOD 05/31/2024 10:13 AM [facility] Immature Granulocytes Absolute 0.07(H) 0.00 - 0.03 K/mcL LAB HEMETOLOGY METHOD 05/31/2024 10:13 AM [facility] Blood Venous blood specimen / Unknown Venipuncture / Unknown 05/31/2024 6:09 AM EDT 05/31/2024 9:24 AM EDT us Laurence Florence MD LAB BLOOD ORDERABLES Final Resu lt [facility] [address] [place] [address], * (ABNORMAL) Basic metabolic panel (05/31/2024 6:09 AM EDT) Sodium 139 133 - 145 mmol/L LAB CHEMISTRY METHOD 05/31/2024 11:03 AM [facility] Potassium 4.6 3.5 - 5.5 mmol/L LAB CHEMISTRY METHOD 05/31/2024 11:03 AM [facility] Chloride 106 96 - 110 mmol/L LAB CHEMISTRY METHOD 05/31/2024 11:03 AM [facility] CO2 27 21 - 32 mmol/L LAB CHEMISTRY METHOD 05/31/2024 11:03 AM [facility] Anion Gap 6 3 - 11 LAB CHEMISTRY METHOD 05/31/2024 11:03 AM [facility] Glucose 24(LL) 70 - 100 mg/dL LAB CHEMISTRY METHOD 05/31/2024 11:03 AM [facility] BUN 52(H) 5 - 25 mg/dL LAB CHEMISTRY METHOD 05/31/2024 11:03 AM [facility] Creatinine 7.22(H) 0.70 - 1.30 mg/dL LAB CHEMISTRY METHOD 05/31/2024 11:03 AM EDT [facility] eGFR 8(L) >=60 mL/min/1. 73m2 LAB CHEMISTRY METHOD 05/31/2024 11:03 AM EDT [facility] Comment:Calculation based on the??Chronic Kidney Disease Epidemiology Collaboration (CKD-EPI) equation refit??without adjustment for race. BUN/Creatinine Ratio 7.2 LAB CHEMISTRY METHOD 05/31/2024 11:03 AM EDT [facility] Calcium 8.2(L) 8.5 - 10.5 mg/dL LAB CHEMISTRY METHOD 05/31/2024 11:03 AM EDT [facility] Blood Venous blood specimen / Unknown Venipuncture / Unknown 05/31/2024 6:09 AM EDT 05/31/2024 9:24 AM EDT us Laurence Florence MD LAB BLOOD ORDERABLES Final Resu lt [facility] [address] [place] [address], documented in this encounter Visit Diagnoses Diagnosis End stage renal disease (CMS/HCC V24, CMS/HCC V28) End stage renal disease Anemia, unspecified documented in this encounter Care Teams Dumping Machine Operator Relationship Specialty Start Date End Date Cass Turcios MD [address] [place] [address] [address] [place] [address] PCP - General Geriatric Medicine 04/02/24 documented as of this encounter
--- OUTSIDE RECORDS SUMMARY | 2024-06-18 19:12 | XMS_ITS | Encounter Summary ---
Author Organization [facility], Address [address] [place] [address] Phone Care Team Providers Care Travel Specialist Name Role Phone Jade Lewis MD Primary Care Provider [phone] Reason for Visit * Reason Comments Med Refill Encounter Details Date Type Department Care Team ([facility] st Contact Info) Description 10/18/2023 Refill [facility] [address] [place] [phone] Malcolm Taylor MD [address] [place] [address] [place] [phone] Social History Tobacco Use Types Packs/Day Years [...] 10/19/2023 Unless otherwise specified, test(s) performed at: [facility], [address] [place] [address] NUCLEAR SECURITY OFFICER: Homero Garcia M.D. For any questions, please call customer service at FREQUENCY:OTHER Resulting Agency Comment Specimen source: Blood us Car Mcdonald MD LAB BLOOD ORDERABLES Final Re sult [facility] See order comments or contact performing lab Unknown, [place] documented in this encounter Visit Diagnoses Not on filedocumented in this encounter Care Teams Travel Specialist Relationship Specialty Start Date End Date Jade Lewis MD [address] [place] [address] PCP - General Internal Medicine 04/25/22 documented as of this encounter
--- OUTSIDE RECORDS SUMMARY | 2024-06-18 19:12 | XMS_ITS | Encounter Summary ---
Author Organization [facility] Address [address] [facility] [address] [place] [address] Phone Care Team Providers Care Licensed Occupational Therapy Assistant Name Role Phone Jade Lewis MD Primary Care Provider [phone] Reason for Visit * Reason Onset Date Comments Med Refill 04/19/2022 Encounter Details Date Type Department Care Team (Late st Contact Info) Description 04/19/2022 Refill [facility] [address] [place] [phone] Loida Madsen Social History Tobacco Use Types [...] filedocumented in this encounter Care Teams Licensed Occupational Therapy Assistant Relationship Specialty Start Date End Date Jade Lewis MD [address] [place] [address] PCP - General Internal Medicine 04/25/22 documented as of this encounter
--- OUTSIDE RECORDS SUMMARY | 2024-06-18 19:12 | XMS_ITS | Encounter Summary ---
Author Organization [facility] Address [address] [place] [address] Care Team Providers Care Leaf Tinner Name Role Phone Cass Turcios MD Primary Care Provider [phone] Encounter Details Date Type Department Care Team (Late st Contact Info) Description 04/02/2024 Lab Requisition [facility] - Main Lab [address] [facility] [place] [address] Cass Turcios MD [address] [place] [address] End stage renal disease (CMS/HCC V24, CMS/HCC [...] your loved ones. For example, child care team lead or elderly care for an older adult? [...] mmol/L LAB CHEMISTRY METHOD 04/02/2024 10:[address] [facility] Potassium 5.6(H) 3.5 - 5.5 mmol/L LAB CHEMISTRY METHOD 04/02/2024 10:[address] [facility] Chloride 95(L) 96 - 110 mmol/L LAB CHEMISTRY METHOD 04/02/2024 10:[address] [facility] CO2 32 21 - 32 mmol/L LAB CHEMISTRY METHOD 04/02/2024 10:[address] [facility] Anion Gap 8 3 - 11 LAB CHEMISTRY METHOD 04/02/2024 10:[address] [facility] Glucose 32(LL) 70 - 100 mg/dL LAB CHEMISTRY METHOD 04/02/2024 10:[address] [facility] BUN 50(H) 5 - 25 mg/dL LAB CHEMISTRY METHOD 04/02/2024 10:[address] [facility] Creatinine 7.72(H) 0.70 - 1.30 mg/dL LAB CHEMISTRY METHOD 04/02/2024 10:[address] [facility] eGFR 7(L) >=60 mL/min/1. 73m2 LAB CHEMISTRY METHOD 04/02/2024 10:[address] [facility] Comment:Calculation based on the??Chronic Kidney Disease Epidemiology Collaboration (CKD-EPI) equation refit??without adjustment for race. BUN/Creatinine Ratio 6.5 LAB CHEMISTRY METHOD 04/02/2024 10:[address] [facility] Calcium 8.3(L) 8.5 - 10.5 mg/dL LAB CHEMISTRY METHOD 04/02/2024 10:[address] [facility] Blood Venous blood specimen / Unknown Venipuncture / Unknown 04/02/2024 5:24 AM EST 04/02/2024 8:48 AM EST us Cass Turcios MD LAB BLOOD ORDERABLES Final Resul t [facility] [address] [place] [address], * (ABNORMAL) Complete blood count (04/02/2024 5:24 AM EST) WBC 26.2(H) 4.8 - 10.8 K/mcL LAB HEMETOLOGY METHOD 04/02/2024 9:[address] [facility] RBC 4.10(L) 4.50 - 5.50 M/mcL LAB HEMETOLOGY METHOD 04/02/2024 9:[address] [facility] Hemoglobin 9.4(L) 13.5 - 17.5 g/dL LAB HEMETOLOGY METHOD 04/02/2024 9:[address] [facility] Hematocrit 31.2(L) 42.0 - 54.0 % LAB HEMETOLOGY METHOD 04/02/2024 9:[address] [facility] MCV 76.1(L) 79.0 - 98.0 FL LAB HEMETOLOGY METHOD 04/02/2024 9:[address] [facility] MCH 22.9(L) 27.0 - 32.0 pcg LAB HEMETOLOGY METHOD 04/02/2024 9:[address] [facility] MCHC 30.1(L) 32.0 - 37.0 g/dL LAB HEMETOLOGY METHOD 04/02/2024 9:[address] [facility] RDW 17.1(H) 11.0 - 15.0 % LAB HEMETOLOGY METHOD 04/02/2024 9:[address] [facility] Platelets 349 130 - 400 K/mcL LAB HEMETOLOGY METHOD 04/02/2024 9:[address] [facility] MPV 11.4(H) 7.0 - 11.0 FL LAB HEMETOLOGY METHOD 04/02/2024 9:47 AM EST [facility] NRBC 0.0 <1.0 % LAB HEMETOLOGY METHOD 04/02/2024 9:47 AM EST [facility] NRBC Absolute 0.00 <0.10 K/mcL LAB HEMETOLOGY METHOD 04/02/2024 9:47 AM EST [facility] Blood Venous blood specimen / Unknown Venipuncture / Unknown 04/02/2024 5:24 AM EST 04/02/2024 8:48 AM EST Cass Turcios MD LAB BLOOD ORDERABLES Final Resul t [facility] [address] [place] [address], documented in this encounter Visit Diagnoses Diagnosis End stage renal disease (CMS/HCC V24, CMS/HCC V28) End stage renal disease documented in this encounter Care Teams Leaf Tinner Relationship Specialty Start Date End Date Cass Turcios MD [address] [place] [address] [address] [place] [address] PCP - General Geriatric Medicine 04/02/24 documented as of this encounter
--- OUTSIDE RECORDS SUMMARY | 2024-06-18 19:12 | XMS_ITS | Clinical Summary ---
Author Organization [facility] Address [address] [place] [address] Phone Care Team Providers Care Rn Disease Management Name Role Phone Cass Turcios MD Primary Care Provider [phone] Allergies No known active allergies Medications Ventolin [...] Department Care Team Description 06/06/2024 Lab Requisition [facility] [address] [place] [address] Laurence Florence MD Cellulitis of right lower limb; End stage renal disease ([facility] V24, [facility] V28) 05/31/2024 Lab Requisition [facility] [address] [place] [address] Laurence Florence MD End stage renal disease ([facility] V24, [facility] V28); Anemia, unspecified 05/30/2024 Lab Requisition [facility] [address] [place] [address] Laurence Florence MD Chronic respiratory failure with hypoxia ([facility] V24, [facility] V28); Encounter for orthopedic aftercare following surgical amputation; Encounter for surgical aftercare following surgery on the circulatory system; Peripheral vascular disease, unspecified ([facility] V24) 05/30/2024 Lab Requisition [facility] [address] [place] [phone] Laurence Florence MD Chronic respiratory failure with hypoxia ([facility] V24, [facility] V28); Encounter for orthopedic aftercare following surgical amputation; Encounter for surgical aftercare following surgery on the circulatory system; Peripheral vascular disease, unspecified ([facility] V24) 05/28/2024 Lab Requisition [facility] [address] [place] [phone] Laurence Florence MD Anemia, unspecified; End stage renal disease ([facility] V24, [facility] V28); Unspecified asthma, uncomplicated 05/24/2024 Lab Requisition [facility] [address] [place] [phone] Laurence Florence MD Chronic combined systolic (congestive) and diastolic (congestive) heart failure ([facility] V24, [facility] V28); Type 2 diabetes mellitus without complications ([facility] V24, [facility] V28); End stage renal disease ([facility] V24, [facility] V28) 05/21/2024 Lab Requisition [facility] [address] [place] [phone] Laurence Florence MD Chronic combined systolic (congestive) and diastolic (congestive) heart failure ([facility] V24, [facility] V28); End stage renal disease ([facility] V24, [facility] V28) 05/20/2024 Lab Requisition [facility] [address] [place] [phone] Laurence Florence MD Elevated white blood cell count, unspecified 05/18/2024 Lab Requisition [facility] [address] [place] [phone] Elsy Christina PA Unspecified systolic (congestive) heart failure ([facility] V24, [facility] V28); Type 2 diabetes mellitus without complications ([facility], [facility] V28); End stage renal disease ([facility] V24, [facility] V28) 05/17/2024 Lab Requisition [facility] [address] [place] [address] Laurence Florence MD Type 2 diabetes mellitus without complications ([facility] V24, [facility] V28); End stage renal disease ([facility] V24, [facility] V28) 04/02/2024 Lab Requisition [facility] [address] [place] [address] Cass Turcios MD End stage renal disease ([facility] V24, [facility] V28) 03/25/2024 7:29 AM EST - 03/27/2024 6:55 PM EST Hospital Encounter [facility] [address] [place] [phone] Noman Conteh MD Bukalo, Nermina, MD Japaridze, Anna, MD Acute kidney injury superimposed on chronic kidney disease ([facility] V24) (Primary Dx); Hyperkalemia; Urinary tract infection without hematuria, site unspecified Discharge Disposition: Shelter Facility 03/25/2024 Lab Requisition [facility] [address] [place] [address] Cass Turcios MD Anemia, unspecified; Chronic diastolic (congestive) heart failure ([facility] V24, [facility] V28); Other pericardial effusion (noninflammatory); End stage renal disease ([facility] V24, [facility] V28) from Last 3 Months Surgical History Surgery Date Site/Laterality Comments TOE AMPUTATION IR DIALYSIS CATH INSERT VASCULAR ACCESS Medical History Medical History Date Comments ESRD (end stage renal disease) on dialysis ([facility] V24, [facility] V28) MWF Hypertension Hyperlipidemia Gouty arthritis Diabetes mellitus ([facility] V24, [facility] V28) GERD (gastroesophageal reflux disease) COPD (chronic obstructive pulmonary disease) ([facility]/HCC V24, [facility] V28) Social History Tobacco Use Types Packs/Day [...] for your loved ones. For example, childcare director or elderly care for an older [...] K/mcL LAB HEMETOLOGY METHOD 06/06/2024 8:35 AM [facility] RBC 3.20(L) 4.50 - 5.50 M/mcL LAB HEMETOLOGY METHOD 06/06/2024 8:35 AM [facility] Hemoglobin 7.6(L) 13.5 - 17.5 g/dL LAB HEMETOLOGY METHOD 06/06/2024 8:35 AM [facility] Hematocrit 26.2(L) 42.0 - 54.0 % LAB HEMETOLOGY METHOD 06/06/2024 8:35 AM [facility] MCV 80.9 79.0 - 98.0 FL LAB HEMETOLOGY METHOD 06/06/2024 8:35 AM [facility] MCH 23.5(L) 27.0 - 32.0 pcg LAB HEMETOLOGY METHOD 06/06/2024 8:35 AM EDT [facility] MCHC 29.0(L) 32.0 - 37.0 g/dL LAB HEMETOLOGY METHOD 06/06/2024 8:35 AM EDT [facility] RDW 16.8(H) 11.0 - 15.0 % LAB HEMETOLOGY METHOD 06/06/2024 8:35 AM EDT [facility] Platelets 264 130 - 400 K/mcL LAB HEMETOLOGY METHOD 06/06/2024 8:35 AM EDT [facility] MPV 12.3(H) 7.0 - 11.0 FL LAB HEMETOLOGY METHOD 06/06/2024 8:35 AM EDT [facility] NRBC 0.0 <1.0 % LAB HEMETOLOGY METHOD 06/06/2024 8:35 AM EDT [facility] NRBC Absolute 0.00 <0.10 K/mcL LAB HEMETOLOGY METHOD 06/06/2024 8:35 AM EDT [facility] Blood Venous blood specimen / Unknown Venipuncture / Unknown 06/06/2024 5:35 AM EDT 06/06/2024 8:10 AM EDT us Laurence Florence MD LAB BLOOD ORDERABLES Final Resu lt [facility] [address] [place] [address], [place] [phone] * (ABNORMAL) Basic metabolic panel (06/06/2024 5:35 AM EDT) Only the most recent of11 resultswithin the time period is included. Sodium 139 133 - 145 mmol/L LAB CHEMISTRY METHOD 06/06/2024 8:59 AM EDT [facility] Potassium 4.3 3.5 - 5.5 mmol/L LAB CHEMISTRY METHOD 06/06/2024 8:59 AM [facility] Chloride 106 96 - 110 mmol/L LAB CHEMISTRY METHOD 06/06/2024 8:59 AM [facility] CO2 27 21 - 32 mmol/L LAB CHEMISTRY METHOD 06/06/2024 8:59 AM [facility] Anion Gap 6 3 - 11 LAB CHEMISTRY METHOD 06/06/2024 8:59 AM [facility] Glucose 162(H) 70 - 100 mg/dL LAB CHEMISTRY METHOD 06/06/2024 8:59 AM [facility] BUN 28(H) 5 - 25 mg/dL LAB CHEMISTRY METHOD 06/06/2024 8:59 AM [facility] Creatinine 3.78(H) 0.70 - 1.30 mg/dL LAB CHEMISTRY METHOD 06/06/2024 8:59 AM [facility] eGFR 17(L) >=60 mL/min/1. 73m2 LAB CHEMISTRY METHOD 06/06/2024 8:59 AM [facility] Comment:Calculation based on the??Chronic Kidney Disease Epidemiology Collaboration (CKD-EPI) equation refit??without adjustment for race. BUN/Creatinine Ratio 7.4 LAB CHEMISTRY METHOD 06/06/2024 8:59 AM [facility] Calcium 9.1 8.5 - 10.5 mg/dL LAB CHEMISTRY METHOD 06/06/2024 8:59 AM [facility] Blood Venous blood specimen / Unknown Venipuncture / Unknown 06/06/2024 5:35 AM EDT 06/06/2024 8:10 AM EDT us Laurence Florence MD LAB BLOOD ORDERABLES Final Resu lt [facility] [address] [place] [address], * (ABNORMAL) CBC auto differential (05/31/2024 6:09 AM EDT) Only the most recent of6 resultswithin the time period is included. WBC 10.9(H) 4.8 - 10.8 K/mcL LAB HEMETOLOGY METHOD 05/31/2024 10:13 AM [facility] RBC 3.20(L) 4.50 - 5.50 M/mcL LAB HEMETOLOGY METHOD 05/31/2024 10:13 AM [facility] Hemoglobin 7.7(L) 13.5 - 17.5 g/dL LAB HEMETOLOGY METHOD 05/31/2024 10:13 AM [facility] Hematocrit 26.1(L) 42.0 - 54.0 % LAB HEMETOLOGY METHOD 05/31/2024 10:13 AM [facility] MCV 81.8 79.0 - 98.0 FL LAB HEMETOLOGY METHOD 05/31/2024 10:13 AM [facility] MCH 24.1(L) 27.0 - 32.0 pcg LAB HEMETOLOGY METHOD 05/31/2024 10:13 AM [facility] MCHC 29.5(L) 32.0 - 37.0 g/dL LAB HEMETOLOGY METHOD 05/31/2024 10:13 AM [facility] RDW 17.8(H) 11.0 - 15.0 % LAB HEMETOLOGY METHOD 05/31/2024 10:13 AM [facility] Platelets 227 130 - 400 K/mcL LAB HEMETOLOGY METHOD 05/31/2024 10:13 AM [facility] MPV 10.6 7.0 - 11.0 FL LAB HEMETOLOGY METHOD 05/31/2024 10:13 AM [facility] NRBC 0.0 <1.0 % LAB HEMETOLOGY METHOD 05/31/2024 10:13 AM [facility] NRBC Absolute 0.00 <0.10 K/mcL LAB HEMETOLOGY METHOD 05/31/2024 10:13 AM [facility] Neutrophils Relative 69.5 % LAB HEMETOLOGY METHOD 05/31/2024 10:13 AM [facility] Lymphocytes Relative 19.2 % LAB HEMETOLOGY METHOD 05/31/2024 10:13 AM [facility] Monocytes Relative 8.4 % LAB HEMETOLOGY METHOD 05/31/2024 10:13 AM [facility] Eosinophils Relative 1.8 % LAB HEMETOLOGY METHOD 05/31/2024 10:13 AM [facility] Basophils Relative 0.5 % LAB HEMETOLOGY METHOD 05/31/2024 10:13 AM [facility] Immature Granulocytes Relative 0.6 % LAB HEMETOLOGY METHOD 05/31/2024 10:13 AM [facility] Neutrophils Absolute 7.60(H) 1.50 - 7.00 K/mcL LAB HEMETOLOGY METHOD 05/31/2024 10:13 AM [facility] Lymphocytes Absolute 2.10 1.00 - 5.00 K/mcL LAB HEMETOLOGY METHOD 05/31/2024 10:13 AM [facility] Monocytes Absolute 0.92 0.20 - 1.00 K/mcL LAB HEMETOLOGY METHOD 05/31/2024 10:13 AM [facility] Eosinophils Absolute 0.20 0.00 - 0.50 K/mcL LAB HEMETOLOGY METHOD 05/31/2024 10:13 AM [facility] Basophils Absolute 0.05 0.00 - 0.20 K/mcL LAB HEMETOLOGY METHOD 05/31/2024 10:13 AM EDT [facility] Immature Granulocytes Absolute 0.07(H) 0.00 - 0.03 K/mcL LAB HEMETOLOGY METHOD 05/31/2024 10:13 AM EDT [facility] Blood Venous blood specimen / Unknown Venipuncture / Unknown 05/31/2024 6:09 AM EDT 05/31/2024 9:24 AM EDT us Laurence Florence MD LAB BLOOD ORDERABLES Final Resu lt Performing Organization Address [facility]/ZIP Co de Phone Number [facility] [address] [place] [address], [place] [phone] * Culture blood (05/30/2024 7:41 AM EDT) [...] RABLES Final Result Performing Organization Address [facility]/ZIP Co de Phone Number [facility] [address] [place] [address], [place] [phone] * (ABNORMAL) Sedimentation rate (05/30/2024 7:36 AM [...] Final Resu lt Performing Organization Address [facility] Co de Phone Number [facility] [address] [place] [address], [place] [phone] * (ABNORMAL) C-reactive protein (05/30/2024 7:36 AM EDT) [facility] C-Reactive Protein 11.60(H) <=0.50 mg/dL LAB CHEMISTRY METHOD 05/30/2024 8:51 AM EDT [facility] Blood Venous blood specimen / Unknown Venipuncture / Unknown 05/30/2024 7:36 AM EDT 05/30/2024 8:11 AM EDT us Laurence Florence MD LAB BLOOD ORDERABLES Final Resu lt Performing Organization Address [facility] de Phone Number [facility] [address] [place] [address], [place] [phone] * Lactate (05/30/2024 7:36 AM EDT) [facility] Lactate 0.6 0.4 - 2.0 mmol/L LAB CHEMISTRY METHOD 05/30/2024 8:47 AM EDT [facility] Blood Venous blood specimen / Unknown Venipuncture / Unknown 05/30/2024 7:36 AM EDT 05/30/2024 8:11 AM EDT us Laurence Florence MD LAB BLOOD ORDERABLES Final Resu lt Performing Organization Address City/[facility]/ZIP Co de Phone Number [facility] [address] [place] [address], [place] [phone] * (ABNORMAL) Comprehensive metabolic panel (05/30/2024 7:36 AM EDT) Only the most recent of4 resultswithin the time period is included. Sodium 140 133 - 145 mmol/L LAB CHEMISTRY METHOD 05/30/2024 9:08 AM [facility] Potassium 4.2 3.5 - 5.5 mmol/L LAB CHEMISTRY METHOD 05/30/2024 9:08 AM [facility] Chloride 104 96 - 110 mmol/L LAB CHEMISTRY METHOD 05/30/2024 9:08 AM [facility] CO2 28 21 - 32 mmol/L LAB CHEMISTRY METHOD 05/30/2024 9:08 AM [facility] Anion Gap 8 3 - 11 LAB CHEMISTRY METHOD 05/30/2024 9:08 AM [facility] Glucose 77 70 - 100 mg/dL LAB CHEMISTRY METHOD 05/30/2024 9:08 AM [facility] BUN 35(H) 5 - 25 mg/dL LAB CHEMISTRY METHOD 05/30/2024 9:08 AM [facility] Creatinine 5.30(H) 0.70 - 1.30 mg/dL LAB CHEMISTRY METHOD 05/30/2024 9:08 AM [facility] eGFR 11(L) >=60 mL/min/1. 73m2 LAB CHEMISTRY METHOD 05/30/2024 9:08 AM [facility] Comment:Calculation based on the??Chronic Kidney Disease Epidemiology Collaboration (CKD-EPI) equation refit??without adjustment for race. BUN/Creatinine Ratio 6.6 LAB CHEMISTRY METHOD 05/30/2024 9:08 AM [facility] Calcium 9.0 8.5 - 10.5 mg/dL LAB CHEMISTRY METHOD 05/30/2024 9:08 AM [facility] AST (SGOT) 10 10 - 42 unit/L LAB CHEMISTRY METHOD 05/30/2024 9:08 AM [facility] ALT (SGPT) 13 10 - 60 unit/L LAB CHEMISTRY METHOD 05/30/2024 9:08 AM EDT [facility] Alkaline Phosphatase 141(H) 42 - 121 unit/L LAB CHEMISTRY METHOD 05/30/2024 9:08 AM EDT [facility] Total Protein 6.3 6.0 - 8.0 g/dL LAB CHEMISTRY METHOD 05/30/2024 9:08 AM EDT [facility] Albumin 2.5(L) 3.2 - 5.0 g/dL LAB CHEMISTRY METHOD 05/30/2024 9:08 AM EDT [facility] Total Bilirubin 0.5 0.0 - 1.4 mg/dL LAB CHEMISTRY METHOD 05/30/2024 9:08 AM EDT [facility] Blood Venous blood specimen / Unknown Venipuncture / Unknown 05/30/2024 7:36 AM EDT 05/30/2024 8:11 AM EDT us Laurence Florence MD LAB BLOOD ORDERABLES Final Resu lt [facility] [address] [place] [address], [place] [phone] * (ABNORMAL) Magnesium (05/29/2024 5:09 AM EDT) [...] lt [facility] [address] [place] [address], [place] [phone] * (ABNORMAL) Renal function panel (05/29/2024 5:09 AM EDT) Sodium 135 133 - 145 mmol/L LAB CHEMISTRY METHOD 05/29/2024 10:03 AM [facility] Potassium 4.7 3.5 - 5.5 mmol/L LAB CHEMISTRY METHOD 05/29/2024 10:03 AM [facility] Chloride 99 96 - 110 mmol/L LAB CHEMISTRY METHOD 05/29/2024 10:03 AM [facility] CO2 27 21 - 32 mmol/L LAB CHEMISTRY METHOD 05/29/2024 10:03 AM [facility] Anion Gap 9 3 - 11 LAB CHEMISTRY METHOD 05/29/2024 10:03 AM [facility] Glucose 22(LL) 70 - 100 mg/dL LAB CHEMISTRY METHOD 05/29/2024 10:03 AM [facility] BUN 60(H) 5 - 25 mg/dL LAB CHEMISTRY METHOD 05/29/2024 10:03 AM [facility] Creatinine 7.71(H) 0.70 - 1.30 mg/dL LAB CHEMISTRY METHOD 05/29/2024 10:03 AM [facility] eGFR 7(L) >=60 mL/min/1. 73m2 LAB CHEMISTRY METHOD 05/29/2024 10:03 AM [facility] Comment:Calculation based on the??Chronic Kidney Disease Epidemiology Collaboration (CKD-EPI) equation refit??without adjustment for race. BUN/Creatinine Ratio 7.8 LAB CHEMISTRY METHOD 05/29/2024 10:03 AM [facility] Albumin 2.4(L) 3.2 - 5.0 g/dL LAB CHEMISTRY METHOD 05/29/2024 10:03 AM [facility] Calcium 8.7 8.5 - 10.5 mg/dL LAB CHEMISTRY METHOD 05/29/2024 10:03 AM EDT [facility] Phosphorus 4.7(H) 2.5 - 4.5 mg/dL LAB CHEMISTRY METHOD 05/29/2024 10:03 AM EDT [facility] Blood Venous blood specimen / Unknown Venipuncture / Unknown 05/29/2024 5:09 AM EDT 05/29/2024 8:42 AM EDT Laurence Florence MD LAB BLOOD ORDERABLES Final Resu lt Performing Organization Address [facility]/ZIP Co de Phone Number [facility] [address] [place] [address], * (ABNORMAL) Hemoglobin A1c (05/18/2024 7:20 AM [...] ORDERABLES Final Re sult Performing Organization Address City/[facility]/ZIP Co de Phone Number [facility] [address] [place] [address], [place] [phone] * (ABNORMAL) POCT Glucose, blood (03/27/2024 4:55 PM EST) Only the most recent of10 resultswithin the time period is included. Glucose POCT 276(H) 70 - 100 mg/dL 03/27/2024 4:56 PM EST [facility] Blood Capillary blood specimen / Unknown 03/27/2024 4:55 PM EST 03/27/2024 4:57 PM EST Marion Hernandez MD LAB POINT OF CARE TE ST DOCKED DEVICE UNSOLICITED RESULTS Final Result Performing Organization Address [facility]/ZIP Co de Phone Number [facility] [address] [place] [address], [place] [phone] * Lavender tube (03/26/2024 6:50 AM EST) [facility] Extra Tube Hold for add-ons. 03/26/2024 9:01 AM EST [facility] Comment:Auto resulted. Blood Venous blood specimen / Unknown 03/26/2024 6:50 AM EST 03/26/2024 7:01 AM EST Marion Hernandez MD LAB BLOOD ORDERABLES Final Res ult Performing Organization Address City/[facility]/ZIP Co de Phone Number [facility] [address] [place] [address], [place] [phone] * Respiratory virus panel molecular study (03/25/2024 6:49 PM EST) [facility] Adenovirus Detection by PCR Not Detected Not Detected LAB MICROBIOLOGY METHOD 03/25/2024 8:14 PM [facility] Influenza A PCR Not Detected Not Detected LAB MICROBIOLOGY METHOD 03/25/2024 8:14 PM [facility] Influenza B PCR Not Detected Not Detected LAB MICROBIOLOGY METHOD 03/25/2024 8:14 PM [facility] Coronavirus 229E Not Detected Not Detected LAB MICROBIOLOGY METHOD 03/25/2024 8:14 PM [facility] Coronavirus HKU1 Not Detected Not Detected LAB MICROBIOLOGY METHOD 03/25/2024 8:14 PM [facility] Coronavirus OC43 Not Detected Not Detected LAB MICROBIOLOGY METHOD 03/25/2024 8:14 PM [facility] Coronavirus NL63 Not Detected Not Detected LAB MICROBIOLOGY METHOD 03/25/2024 8:14 PM [facility] Parainfluenza Virus 1 Not Detected Not Detected LAB MICROBIOLOGY METHOD 03/25/2024 8:14 PM [facility] Parainfluenza Virus 2 Not Detected Not Detected LAB MICROBIOLOGY METHOD 03/25/2024 8:14 PM [facility] Parainfluenza Virus 3 Not Detected Not Detected LAB MICROBIOLOGY METHOD 03/25/2024 8:14 PM [facility] Parainfluenza Virus 4 Not Detected Not Detected LAB MICROBIOLOGY METHOD 03/25/2024 8:14 PM [facility] RSV PCR Not Detected Not Detected LAB MICROBIOLOGY METHOD 03/25/2024 8:14 PM [facility] Human Metapneumovirus A and B Not Detected Not Detected LAB MICROBIOLOGY METHOD 03/25/2024 8:14 PM [facility] Rhinovirus/Entero virus Not Detected Not Detected LAB MICROBIOLOGY METHOD 03/25/2024 8:14 PM [facility] Bordetella pertussis Not Detected Not Detected LAB MICROBIOLOGY METHOD 03/25/2024 8:14 PM [facility] Bordetella parapertussis Not Detected Not Detected LAB MICROBIOLOGY METHOD 03/25/2024 8:14 PM [facility] Mycoplasma pneumo by PCR Not Detected Not Detected LAB MICROBIOLOGY METHOD 03/25/2024 8:14 PM [facility] Chlamydia pneumoniae Not Detected Not Detected LAB MICROBIOLOGY METHOD 03/25/2024 8:14 PM [facility] SARS COV-2 Not Detected Not Detected LAB MICROBIOLOGY METHOD 03/25/2024 8:14 PM [facility] Swab Both anterior nares / Unknown Non-blood Collection / Unknown 03/25/2024 6:49 PM EST 03/25/2024 6:59 PM EST Narrative [facility] - 03/25/2024 8:14 PM EST Testing was performed using the Shot[employer] Respiratory Pathogen PCR Assay. All results must [...] ORDE RABLES Final Result Performing Organization Address City/[facility]/ZIP Co de Phone Number [facility] [address] [place] [address], [place] [phone] * Ethanol (03/25/2024 12:01 PM EST) [facility] Ethanol Level <3 0 - 10 mg/dL LAB CHEMISTRY METHOD 03/25/2024 1:57 PM [facility] Blood Venous blood specimen / Unknown Venipuncture / Unknown 03/25/2024 12:01 PM EST 03/25/2024 12:20 PM EST Radha MONTERO LAB BLOOD ORDERABLES Final Resu lt Performing Organization Address [facility]/ZIP Co de Phone Number [facility] [address] [place] [address], [place] [phone] * (ABNORMAL) Urinalysis with reflex microscopic and culture (03/25/2024 8:26 AM EST) Specific Brogue Urine 1.015 1.003 - 1.030 LAB URINALYSIS - AUTOMATED METHOD 03/25/2024 9:54 AM [facility] pH, Urine 6.5 5.0 - 8.0 pH LAB URINALYSIS - AUTOMATED METHOD 03/25/2024 9:54 AM [facility] Leukocytes, Urine Trace(A) Negative LAB URINALYSIS - AUTOMATED METHOD 03/25/2024 9:54 AM [facility] Nitrite, Urine Positive(A) Negative LAB URINALYSIS - AUTOMATED METHOD 03/25/2024 9:54 AM [facility] Protein, Urine >=300(A) <=Trace mg/dL LAB URINALYSIS - AUTOMATED METHOD 03/25/2024 9:54 AM [facility] Glucose, Urine 250(A) Negative mg/dL LAB URINALYSIS - AUTOMATED METHOD 03/25/2024 9:54 AM [facility] Ketones, Urine Negative Negative mg/dL LAB URINALYSIS - AUTOMATED METHOD 03/25/2024 9:54 AM [facility] Urobilinogen , Urine 0.2 0.2 - 1.0 mg/dL LAB URINALYSIS - AUTOMATED METHOD 03/25/2024 9:54 AM [facility] Bilirubin, Urine Negative Negative LAB URINALYSIS - AUTOMATED METHOD 03/25/2024 9:54 AM [facility] Blood, Urine Moderate(A) Negative LAB URINALYSIS - AUTOMATED METHOD 03/25/2024 9:54 AM [facility] RBC, Urine 10(H) 0 - 4 /HPF 03/25/2024 9:54 AM [facility] WBC, Urine 80(H) 0 - 4 /HPF 03/25/2024 9:54 AM [facility] Squamous Epithelial, Urine 100(H) 0 - 60 /LPF 03/25/2024 9:54 AM [facility] Crystals, Urine Moderate Amorphous Urate crystals. /LPF 03/25/2024 9:54 AM [facility] Bacteria, Urine Moderate(A) Negative /HPF 03/25/2024 9:54 AM [facility] Urine Urine specimen obtained by clean catch procedure / Unknown Non-blood Collection / Unknown 03/25/2024 8:26 AM EST 03/25/2024 8:54 AM EST us Noman Conteh MD LAB URINE ORDERABLES Monse l Result [facility] [address] [place] [address], [place] [phone] * Lindsey urine culture tube (03/25/2024 8:26 AM EST) Pathologist [facility] Extra Tube Hold for add-ons. 03/25/2024 10:01 AM EST [facility] Comment:Auto resulted. Urine Urine specimen obtained by clean catch procedure / Unknown Non-blood Collection / Unknown 03/25/2024 8:26 AM EST 03/25/2024 8:54 AM EST us Noman Conteh MD LAB URINE ORDERABLES Monse l Result Performing Organization Address [facility]/ZIP Co de Phone Number [facility] [address] [place] [address], [place] [phone] * Culture urine (03/25/2024 8:26 AM EST) Pathologist [facility] Culture, Urine No growth 03/26/2024 10:25 AM EST [facility] Urine Urine specimen obtained by clean catch procedure / Unknown Non-blood Collection / Unknown 03/25/2024 8:26 AM EST 03/25/2024 9:54 AM EST us Noman Conteh MD LAB MICROBIOLOGY - GENERA L ORDERABLES Final Result Performing Organization Address City/[facility]/ZIP Co de Phone Number [facility] [address] [place] [address], [place] [phone] * Hepatitis B surface antigen with reflex to confirmation (03/25/2024 8:17 AM EST) Hepatitis B Surface Ag Negative Negative LAB CHEMISTRY METHOD 03/25/2024 12:29 PM EST [facility] Blood Venous [...] Monse l Result Performing Organization Address [facility]/ZIP Co de Phone Number [facility] [address] [place] [address], * Hepatitis B surface antibody quantitative (03/25/2024 8:17 AM EST) [facility] Hepatitis B Surface Ab Negative Negative LAB CHEMISTRY METHOD 03/25/2024 12:18 PM EST [facility] Hepatitis B Surface Ab Quantitative 7.1 mIU/mL LAB CHEMISTRY METHOD 03/25/2024 12:18 PM EST [facility] Blood Venous blood specimen / Unknown Venipuncture / Unknown 03/25/2024 8:17 AM EST 03/25/2024 8:57 AM EST [facility] - 03/25/2024 12:18 PM EST >=10 mIU/mL is considered to be consistent with immunity. us Noman Conteh MD LAB BLOOD ORDERABLES Monse l Result Performing Organization Address City/[facility]/ZIP Co de Phone Number [facility] [address] [place] [address], [place] [phone] * (ABNORMAL) Venous blood gas (03/25/2024 8:17 AM EST) pH, Parish 7.12(LL) 7.32 - 7.42 pH 03/25/2024 9:04 AM [facility] pCO2, Parish 48 41 - 51 mmHg 03/25/2024 9:04 AM [facility] pO2, [place] 54(H) 25 - 40 mmHg 03/25/2024 9:04 AM [facility] HCO3, Venous 14.2(L) 22.0 - 26.0 mmol/L 03/25/2024 9:04 AM [facility] O2 Sat, Parish 82.3 % 03/25/2024 9:04 AM [facility] Base Excess, Parish -13.3(L) -2.0 - 2.0 mmol/L 03/25/2024 9:04 AM [facility] Blood Venous blood specimen / Unknown Venipuncture / Unknown 03/25/2024 8:17 AM EST 03/25/2024 8:56 AM EST Noman Conteh MD LAB BLOOD ORDERABLES Monse l Result [facility] [address] [place] [address], [place] [phone] * Ammonia (03/25/2024 8:17 AM EST) Ammonia 20 11 - 35 mcmol/L LAB CHEMISTRY METHOD 03/25/2024 9:17 AM [facility] Blood Venous blood specimen / Unknown Venipuncture / Unknown 03/25/2024 8:17 AM EST 03/25/2024 8:57 AM EST Noman Conteh MD LAB BLOOD ORDERABLES Monse l Result [facility] [address] [place] [address], [place] [phone] * ECG 12 lead (03/25/2024 7:58 AM EST) Ventricular Rate ECG 70 BPM GEMUSE Atrial Rate 70 BPM GEMUSE P-R Interval 174 ms GEMUSE QRS Duration 98 ms GEMUSE Q-T Interval 410 ms GEMUSE QTc 442 ms GEMUSE P Wave Vinton 3 degrees GEMUSE R Vinton 6 degrees GEMUSE T [place]inton 87 degrees GEMUSE ECG Interpretation Normal sinus [...] remains clear. Cardiomegaly, new since 08/10/2020. Code 76534 -------- FINAL REPORT -------- Dictated By: Daren Sol Dictated Date: 03/25/2024 08:45 ET Assigned Physician: Daren Sol Reviewed and Electronically Signed By: Daren Sol Signed Date: 03/25/2024 08:46 ET Workstation ID: [id number] Transcribed By: Self Edit Transcribed Date: 03/25/2024 [...] lung remains clear. Cardiomegaly, new since08/10/2020. Code 56356 -------- FINAL REPORT -------- Dictated By: Daren Sol Dictated Date: 03/25/2024 08:45 ET Assigned Physician: Daren Sol Reviewed and Electronically Signed By: Daren Sol Signed Date: 03/25/2024 08:46 ET Workstation ID: [id number] Transcribed By: Self Edit Transcribed Date: 03/25/2024 08:45 ET us oNman Conteh MD IMG XR PROCEDURES Final R esult * ECG-Annotated (03/25/2024) us Provider Onbase ECG ORDERABLES Final Result from Last 3 Months Insurance MEDICARE ADVANT[place] [address] MEDICA[place] Advance Directives Documents on File Type Date Recorded Patient Power Technician Expl anation Advance Directives and Living Will [...] Nestor Marie Health Care Agent Beau Marie [facility] re Agent Care Teams Rn Disease Management Relationship Specialty Start Date End Date Cass Turcios MD [address] [place] [address] [address] [place] [address] PCP - General Geriatric Medicine 04/02/24
--- OUTSIDE RECORDS SUMMARY | 2024-06-18 19:12 | XMS_ITS | Encounter Summary ---
Author Organization [facility], Address [address] [place] [address] Phone Care Team Providers Care Pickup Driver Name Role Phone Jade Lewis MD Primary Care Provider [phone] Reason for Visit * Reason Comments Med Refill Encounter Details Date Type Department Care Team (Late st Contact Info) Description 10/27/2023 Refill [facility] [address] [place] [phone] Malcolm Taylor MD [address] [place] [address] [place] [address] Social History Tobacco Use Types Packs/Day Years [...] on filedocumented in this encounter Care Teams Pickup Driver Relationship Specialty Start Date End Date Jade Lewis MD [address] [place] [address] PCP - General Internal Medicine 04/25/22 documented as of this encounter
--- OUTSIDE RECORDS SUMMARY | 2024-06-18 19:12 | XMS_ITS | Encounter Summary ---
Author Organization [facility], Address [address] [place] [address] Phone Care Team Providers Care Machine Tester Name Role Phone Jade Lewis MD Primary Care Provider [phone] Encounter Details Date Type Department Care Team (Late st Contact Info) Description 06/12/2024 Treatment [facility], [address] [place] [address] Vivi Griggs MD [facility] [address] [place] [address] End stage renal disease; Dependence on renal [...] care for end stage renal disease. Attending Manufacturing Executive: DYLAN GRACE Dialysis Location: [facility] Schedule: Shift: 2 OVERVIEW Patient is [...] reviewed. Dietary adjustments made in conjunction with communications technician. 7.Transplant: The patient is being evaluated for a kidney transplant. 8. Vascular issues: Has wound and is planned to go to [place] next week again for intervention. Signed by: VIVI GRIGGS MD on 06/13/2024 at 09:34:04 AM Transcribed by: VIVI GRIGGS MD on 06/13/2024 at 09:34:04 AM documented in this encounter Plan of Treatment Not on file documented as of this encounter Visit Diagnoses Diagnosis End stage renal disease Dependence on renal dialysis documented in this encounter Care Teams Machine Tester Relationship Specialty Start Date End Date Jade Lewis MD [address] [place] [address] PCP - General Internal Medicine 04/25/22 documented as of this encounter
--- OUTSIDE RECORDS SUMMARY | 2024-06-18 19:12 | XMS_ITS | Encounter Summary ---
Author Organization [facility], Address [address] [place] [address] Phone Care Team Providers Care Bus Aide Name Role Phone Jade Lewis MD Primary Care Provider [phone] Reason for Visit * Reason Comments Med Refill Encounter Details Date Type Department Care Team (Late st Contact Info) Description 12/24/2022 Refill [facility] [address] [place] [phone] Car Mcdonald MD [facility] [address] [place] [address] Social History Tobacco Use Types Packs/Day Years [...] on filedocumented in this encounter Care Teams Bus Aide Relationship Specialty Start Date End Date Jade Lewis MD [address] [place] [address] PCP - General Internal Medicine 04/25/22 documented as of this encounter
--- OUTSIDE RECORDS SUMMARY | 2024-06-18 19:12 | XMS_ITS | Encounter Summary ---
Author Organization [facility] Address [address] [place] [address] Care Team Providers Care Assembler For Puller Over Hand Name Role Phone Cass Turcios MD Primary Care Provider [phone] Encounter Details Date Type Department Care Team (Latest Contact Info) Description 05/28/2024 Lab Requisition [facility] - [facility] Lab [address] [facility] [place] [address] Laurence Florence MD [address] [place] [phone] Anemia, unspecified; End stage renal disease (CMS/HCC [...] Magnesium (05/29/2024 5:09 AM EDT) Pathologist [facility] Magnesium 1.8(L) 1.9 - 2.6 mg/dL LAB CHEMISTRY METHOD 05/29/2024 9:20 AM EDT [facility] Blood Venous blood specimen / Unknown Venipuncture / Unknown 05/29/2024 5:09 AM EDT 05/29/2024 8:42 AM EDT us Laurence Floernce MD LAB BLOOD ORDERABLES Final Resu lt [facility] [address] [place] [address], * (ABNORMAL) Complete blood count (05/29/2024 5:09 AM EDT) [facility] WBC 10.8 4.8 - 10.8 K/mcL LAB HEMETOLOGY METHOD 05/29/2024 9:01 AM EDT [facility] RBC 3.50(L) 4.50 - 5.50 M/mcL LAB HEMETOLOGY METHOD 05/29/2024 9:01 AM EDT [facility] Hemoglobin 8.2(L) 13.5 - 17.5 g/dL LAB HEMETOLOGY METHOD 05/29/2024 9:01 AM EDT [facility] Hematocrit 28.4(L) 42.0 - 54.0 % LAB HEMETOLOGY METHOD 05/29/2024 9:01 AM EDT [facility] MCV 81.8 79.0 - 98.0 FL LAB [facility]EMETOLOGY [facility]24 [facility] MCH 23.6(L) 27.0 - 32.0 pcg LAB HEMETOLOGY METHOD 05/29/2024 9:[address] [facility] MCHC 28.9(L) 32.0 - 37.0 g/dL LAB HEMETOLOGY METHOD 05/29/2024 9:[address] [facility] RDW 18.2(H) 11.0 - 15.0 % LAB HEMETOLOGY METHOD 05/29/2024 9:[facility] Platelets 263 130 - 400 K/mcL LAB HEMETOLOGY METHOD 05/29/2024 9:[address] [facility] MPV 11.2(H) 7.0 - 11.0 FL LAB HEMETOLOGY METHOD 05/29/2024 9:[facility] NRBC 0.0 <1.0 % LAB HEMETOLOGY METHOD 05/29/2024 9:[address] [facility] NRBC Absolute 0.00 <0.10 K/mcL LAB HEMETOLOGY METHOD 05/29/2024 9:[address] [facility] Blood Venous blood specimen / Unknown Venipuncture / Unknown 05/29/2024 5:09 AM EDT 05/29/2024 8:42 AM EDT us Laurence Florence MD LAB BLOOD ORDERABLES Final Resu lt [facility] [address] [place] [address], * (ABNORMAL) Renal function panel (05/29/2024 5:09 AM EDT) Sodium 135 133 - 145 mmol/L LAB CHEMISTRY METHOD 05/29/2024 10:03 AM T [facility] Potassium 4.7 3.5 - 5.5 mmol/L LAB CHEMISTRY METHOD 05/29/2024 10:[address] [facility] Chloride 99 96 - 110 mmol/L LAB CHEMISTRY METHOD 05/29/2024 10:[address] [facility] CO2 27 21 - 32 mmol/L LAB CHEMISTRY METHOD 05/29/2024 10:[address] [facility] Anion Gap 9 3 - 11 LAB CHEMISTRY METHOD 05/29/2024 10:[address] [facility] Glucose 22(LL) 70 - 100 mg/dL LAB CHEMISTRY METHOD 05/29/2024 10:[address] [facility] BUN 60(H) 5 - 25 mg/dL LAB CHEMISTRY METHOD 05/29/2024 10:[address] [facility] Creatinine 7.71(H) 0.70 - 1.30 mg/dL LAB CHEMISTRY METHOD 05/29/2024 10:[address] [facility] eGFR 7(L) >=60 mL/min/1. 73m2 LAB CHEMISTRY METHOD 05/29/2024 10:[address] [facility] Comment:Calculation based on the??Chronic Kidney Disease Epidemiology Collaboration (CKD-EPI) equation refit??without adjustment for race. BUN/Creatinine Ratio 7.8 LAB CHEMISTRY METHOD 05/29/2024 10:[address] [facility] Albumin 2.4(L) 3.2 - 5.0 g/dL LAB CHEMISTRY METHOD 05/29/2024 10:[address] [facility] Calcium 8.7 8.5 - 10.5 mg/dL LAB CHEMISTRY METHOD 05/29/2024 10:[address] [facility] Phosphorus 4.7(H) 2.5 - 4.5 mg/dL LAB CHEMISTRY METHOD 05/29/2024 10:[address] [facility] Blood Venous blood specimen / Unknown Venipuncture / Unknown 05/29/2024 5:09 AM EDT 05/29/2024 8:42 AM EDT us Laurence Florence MD LAB BLOOD ORDERABLES Final Resu lt [facility] [address] [place] [address], documented in this encounter Visit Diagnoses Diagnosis Anemia, unspecified End stage renal disease (CMS/HCC V24, CMS/HCC V28) End stage renal disease Unspecified asthma, uncomplicated documented in this encounter Care Teams Assembler For Puller Over Hand Relationship Specialty Start Date End Date Cass Turcios MD [address] [facility] [address] [place] [address] PCP - General Geriatric Medicine 04/02/24 documented as of this encounter
--- OUTSIDE RECORDS SUMMARY | 2024-06-18 19:13 | XMS_ITS | Encounter Summary ---
Author Organization [facility], Address [address] [place] [address] Phone Care Team Providers Care Electric Locomotive Firer/Fireman Name Role Phone Jade Lewis MD Primary Care Provider [phone] Reason for Visit * Reason Comments Med Refill Encounter Details Date Type Department Care Team ([facility] st Contact Info) Description 11/27/2020 Refill [facility] [address] [place] [phone] Alejandro Santana MD [address] [place] [phone] Social History Tobacco Use Types Packs/Day Years [...] on filedocumented in this encounter Care Teams Electric Locomotive Firer/Fireman Relationship Specialty Start Date End Date Jade Lewis MD [address] [place] [address] PCP - General Internal Medicine 04/25/22 documented as of this encounter
--- OUTSIDE RECORDS SUMMARY | 2024-06-18 19:13 | XMS_ITS | Encounter Summary ---
Author Organization [facility] Address [address] [place] [address] Care Team Providers Care Industrial Psychology Professor Name Role Phone Cass Turcios MD Primary Care Provider [phone] Encounter Details Date Type Department Care Team (Late st Contact Info) Description 05/21/2024 Lab Requisition [facility] - Main Lab [address] [facility] [place] [address] Laurence Florence MD [address] [place] [id number] Chronic combined systolic (congestive) and diastolic (congestive) [...] CBC auto differential (05/21/2024 5:40 AM EDT) [facility] WBC 14.4(H) 4.8 - 10.8 K/mcL LAB HEMETOLOGY METHOD 05/21/2024 12:49 PM [facility] RBC 3.80(L) 4.50 [...] LAB HEMETOLOGY METHOD 05/21/2024 12:49 PM EDT [facility] MPV 11.3(H) 7.0 - 11.0 FL LAB HEMETOLOGY METHOD 05/21/2024 12[facility] NRBC 0.0 <1.0 % LAB HEMETOLOGY METHOD 05/21/2024 12:49 [facility] NRBC Absolute 0.00 <0.10 [...] K/mcL LAB HEMETOLOGY METHOD 05/21/2024 12:49 [facility] Lymphocytes Absolute 1.87 1.00 - 5.00 K/mcL LAB HEMETOLOGY METHOD 05/21/2024 12:49 PM [facility] Monocytes Absolute 1.00 0.20 - 1.00 K/mcL LAB HEMETOLOGY METHOD 05/21/2024 12:49 PM EDT [facility] Eosinophils Absolute 0.29 0.00 - 0.50 K/[facility] LAB HEMETOLOGY METHOD 05/21/2024 12:49 PM EDT [facility] Basophils Absolute 0.06 0.00 - 0.20 K/mcL LAB HEMETOLOGY METHOD 05/21/2024 12:49 PM EDT [facility] Immature Granulocytes Absolute 0.11(H) 0.00 - 0.03 K/[facility] HEMETOLOGY METHOD 05/21/2024 12:49 PM EDT [facility] Blood Venous blood specimen / Unknown Venipuncture / Unknown 05/21/2024 5:40 AM EDT 05/21/2024 11:19 AM EDT us Laurence Florence MD LAB BLOOD ORDERABLES Final Resu lt [facility] [address] [place] [address], [place] [phone] * (ABNORMAL) Basic metabolic panel (05/21/2024 5:40 AM EDT) Sodium 137 133 - 145 mmol/L LAB CHEMISTRY METHOD 05/21/2024 2:38 PM [facility] Potassium 5.3 3.5 - 5.5 mmol/L LAB CHEMISTRY METHOD 05/21/2024 2:38 PM T [facility] Comment:Hemolysis present Chloride 99 96 [...] LAB CHEMISTRY METHOD 05/21/2024 2:38 PM EDT [facility] BUN 58(H) 5 - 25 mg/dL LAB CHEMISTRY METHOD 05/21/2024 2:38 PM EDT [facility] Creatinine 7.10(H) 0.70 - 1.30 mg/dL LAB CHEMISTRY METHOD 05/21/2024 2:38 PM EDT [facility] eGFR 8(L) >=60 mL/min/1. 73m2 LAB CHEMISTRY METHOD 05/21/2024 2:38 PM EDT [facility] Comment:Calculation based on the??Chronic Kidney Disease Epidemiology Collaboration (CKD-EPI) equation refit??without adjustment for race. BUN/Creatinine Ratio 8.2 LAB CHEMISTRY METHOD 05/21/2024 2:38 PM EDT [facility] Calcium 8.6 8.5 - 10.5 mg/dL LAB CHEMISTRY METHOD 05/21/2024 2:38 PM EDT [facility] Blood Venous blood specimen / Unknown Venipuncture / Unknown 05/21/2024 5:40 AM EDT 05/21/2024 11:19 AM EDT us Laurence Florence MD LAB BLOOD ORDERABLES Final Resu lt [facility] [address] [place] [address], documented in this encounter Visit Diagnoses Diagnosis Chronic combined systolic (congestive) and diastolic (congestive) heart failure (CMS/HCC V24, CMS/HCC V28) End stage renal disease (CMS/HCC V24, CMS/HCC V28) End stage renal disease documented in this encounter Care Teams Industrial Psychology Professor Relationship Specialty Start Date End Date Cass Turcios MD [address] [place] [address] [address] [place] [address] PCP - General Geriatric Medicine 04/02/24 documented as of this encounter
--- OUTSIDE RECORDS SUMMARY | 2024-06-18 19:13 | XMS_ITS | Encounter Summary ---
Author Organization [facility] Address [address] [place] [address] Care Team Providers Care Drug Safety Specialist Name Role Phone Cass Turcios MD Primary Care Provider [phone] Encounter Details Date Type Department Care Team (Latest Contact Info) Description 05/17/2024 Lab Requisition [facility] - Main Lab [address] [facility] [place] [address] Laurence Florence MD [address] [place] [id number] Type 2 diabetes mellitus without complications (CMS/HCC [...] for your loved ones. For example, child psychiatrist or elderly care for an older [...] EDT Type 2 diabetes mellitus without complications ([facility]/HCC) End stage renal disease ([facility]) HEMOGLOBIN A1C Routine 05/17/2024 5:37 AM EDT Type 2 diabetes mellitus without complications (CMS/HCC) End stage renal disease ([facility]/HCC) BASIC METABOLIC PANEL Routine 05/17/2024 5:37 AM EDT Type 2 diabetes mellitus without complications ([facility]/HCC) End stage renal disease ([facility]/HCC) documented in this encounter Results * (ABNORMAL) Basic metabolic panel (05/17/2024 5:37 AM EDT) Sodium 135 133 - 145 mmol/L LAB CHEMISTRY METHOD 05/17/2024 11:32 AM [facility] Potassium 5.5 3.5 - 5.5 mmol/L LAB CHEMISTRY METHOD 05/17/2024 11:32 AM [facility] Chloride 95(L) 96 - 110 mmol/L LAB CHEMISTRY METHOD 05/17/2024 11:32 AM [facility] CO2 29 21 - 32 mmol/L LAB CHEMISTRY METHOD 05/17/2024 11:32 AM [facility] Anion Gap 11 3 - 11 LAB CHEMISTRY METHOD 05/17/2024 11:32 AM [facility] Glucose 173(H) 70 - 100 mg/dL LAB CHEMISTRY METHOD 05/17/2024 11:32 AM [facility] BUN 52(H) 5 - 25 mg/dL LAB CHEMISTRY METHOD 05/17/2024 11:32 AM [facility] Creatinine 7.48(H) 0.70 - 1.30 mg/dL LAB CHEMISTRY METHOD 05/17/2024 11:32 AM [facility] eGFR 7(L) >=60 mL/min/1. 73m2 LAB CHEMISTRY METHOD 05/17/2024 11:32 AM [facility] Comment:Calculation based [...] ORDERABLES Final Resu lt Performing Organization Address [facility] de Phone Number [facility] [address] [place] [address], [place] [phone] * (ABNORMAL) Hemoglobin A1c (05/17/2024 5:37 AM [...] ORDERABLES Final Resu lt Performing Organization Address City/[facility]/ZIP Co de Phone Number [facility] [address] [place] [address], [place] [phone] * (ABNORMAL) Complete blood count (05/17/2024 5:37 AM EDT) WBC 16.6(H) 4.8 - 10.8 K/[facility] LAB HEMETOLOGY METHOD 05/17/2024 10:40 AM EDT [facility] RBC 3.70(L) 4.50 - 5.50 M/[facility] LAB HEMETOLOGY METHOD 05/17/2024 10:40 AM [facility] Hemoglobin 8.9(L) 13.5 - 17.5 g/dL LAB HEMETOLOGY METHOD 05/17/2024 10:40 AM [facility] Hematocrit 30.1(L) 42.0 - 54.0 % LAB HEMETOLOGY METHOD 05/17/2024 10:40 AM [facility] MCV 82.5 79.0 - 98.0 FL LAB HEMETOLOGY METHOD 05/17/2024 10:40 AM [facility] MCH 24.4(L) 27.0 - 32.0 pcg LAB HEMETOLOGY METHOD 05/17/2024 10:40 AM [facility] MCHC 29.6(L) 32.0 - 37.0 g/dL LAB HEMETOLOGY METHOD 05/17/2024 10:40 AM [facility] RDW 18.3(H) 11.0 - 15.0 % LAB HEMETOLOGY METHOD 05/17/2024 10:40 AM [facility] Platelets 431(H) 130 - 400 K/mcL LAB HEMETOLOGY METHOD 05/17/2024 10:40 AM [facility] MPV 10.6 7.0 - 11.0 FL LAB HEMETOLOGY METHOD 05/17/2024 10:40 AM [facility] NRBC 0.0 <1.0 % LAB HEMETOLOGY METHOD 05/17/2024 10:40 AM [facility] NRBC Absolute 0.00 <0.10 K/mcL LAB HEMETOLOGY METHOD 05/17/2024 10:40 AM [facility] Blood Venous blood specimen / Unknown Venipuncture / Unknown 05/17/2024 5:37 AM EDT 05/17/2024 9:43 AM EDT us Laurence Florence MD LAB BLOOD ORDERABLES Final Resu lt [facility] ([facility] [address] [place] [address], documented in this encounter Visit Diagnoses Diagnosis Type 2 diabetes mellitus without complications ([facility] V24, [facility] V28) End stage renal disease ([facility] V24, [facility] V28) End stage renal disease documented in this encounter Care Teams Drug Safety Specialist Relationship Specialty Start Date End Date Cass Turcios MD [address] [facility] [address] [place] [address] PCP - General Geriatric Medicine 04/02/24 documented as of this encounter
--- OUTSIDE RECORDS SUMMARY | 2024-06-18 19:13 | XMS_ITS | Encounter Summary ---
Author Organization [facility] Address [address] [place] [address] Care Team Providers Care Special Education Superintendent Name Role Phone Cass Turcios MD Primary Care Provider Encounter Details Date Type Department Care Team (Late st Contact Info) Description 05/18/2024 Lab Requisition [facility] - Main Lab [address] [facility] [place] [address] Elsy Christina PA [address] [facility] [address] [place] [address] Unspecified systolic (congestive) heart failure ([facility] V24, CMS/HCC V28); Type 2 diabetes mellitus without complications (CMS/HCC V24, CMS/HCC V28); End stage renal disease (CMS/HCC V24, CMS/[facility] V28) Social History Tobacco Use Types Packs/Day [...] AM EDT Unspecified systolic (congestive) heart failure ([facility]/HCC) Type 2 diabetes mellitus without complications [...] K/mcL LAB HEMETOLOGY METHOD 05/18/2024 10:[address] [facility] RBC 3.60(L) 4.50 - 5.50 M/mcL LAB HEMETOLOGY METHOD 05/18/2024 10:[address] [facility] Hemoglobin 8.8(L) 13.5 - 17.5 g/dL LAB HEMETOLOGY METHOD 05/18/2024 10:[address] [facility] Hematocrit 29.6(L) 42.0 - 54.0 % LAB HEMETOLOGY METHOD 05/18/2024 10:[address] [facility] MCV 83.1 79.0 - 98.0 FL LAB HEMETOLOGY METHOD 05/18/2024 10:[address] [facility] MCH 24.7(L) 27.0 - 32.0 pcg LAB HEMETOLOGY METHOD 05/18/2024 10:[address] [facility] MCHC 29.7(L) 32.0 - 37.0 g/dL LAB HEMETOLOGY METHOD 05/18/2024 10:[address] [facility] RDW 18.3(H) 11.0 - 15.0 % LAB HEMETOLOGY METHOD 05/18/2024 10:[address] [facility] Platelets 433(H) 130 - 400 K/mcL LAB HEMETOLOGY METHOD 05/18/2024 10:[address] [facility] MPV 10.5 7.0 - 11.0 FL LAB HEMETOLOGY METHOD 05/18/2024 10:[address] [facility] NRBC 0.0 <1.0 % LAB HEMETOLOGY METHOD 05/18/2024 10:[address] [facility] NRBC Absolute 0.00 <0.10 K/mcL LAB HEMETOLOGY METHOD 05/18/2024 10:[address] [facility] Neutrophils Relative 75.0 % LAB HEMETOLOGY METHOD 05/18/2024 10:[address] [facility] Lymphocytes Relative 15.7 % LAB HEMETOLOGY METHOD 05/18/2024 10:[address] [facility] Monocytes Relative 5.9 % LAB HEMETOLOGY METHOD 05/18/2024 10:[address] [facility] Eosinophils Relative 2.5 % LAB HEMETOLOGY METHOD 05/18/2024 10:[address] [facility] Basophils Relative 0.3 % LAB HEMETOLOGY METHOD 05/18/2024 10:[address] [facility] Immature Granulocytes Relative 0.6 % LAB HEMETOLOGY METHOD 05/18/2024 10:[address] [facility] Neutrophils Absolute 11.02(H) 1.50 - 7.00 K/mcL LAB HEMETOLOGY METHOD 05/18/2024 10:27 AM EDT [facility] Lymphocytes Absolute 2.30 1.00 - 5.00 K/[facility] LAB HEMETOLOGY METHOD 05/18/2024 10:27 AM EDT [facility] Monocytes Absolute 0.87 0.20 - 1.00 K/[facility] LAB HEMETOLOGY METHOD 05/18/2024 10:27 AM EDT [facility] Eosinophils Absolute 0.37 0.00 - 0.50 K/[facility] LAB HEMETOLOGY METHOD 05/18/2024 10:27 AM EDT [facility] Basophils Absolute 0.04 0.00 - 0.20 K/[facility] LAB HEMETOLOGY METHOD 05/18/2024 10:27 AM EDT [facility] Immature Granulocytes Absolute 0.09(H) 0.00 - 0.03 K/[facility] LAB HEMETOLOGY METHOD 05/18/2024 10:27 AM EDT [facility] Blood Venous blood specimen / Unknown Venipuncture / Unknown 05/18/2024 7:20 AM EDT 05/18/2024 9:58 AM EDT us Elsy MONTERO LAB BLOOD ORDERABLES Final Re sult [facility] [address] [place] [address], * (ABNORMAL) Hemoglobin A1c (05/18/2024 7:20 AM EDT) Hemoglobin A1C 7.2(H) <6.5 % LAB CHEMISTRY METHOD 05/19/2024 12:06 PM EDT [facility] Mean Bld Glu Estim. 160 mg/dL LAB CHEMISTRY METHOD 05/19/2024 12:06 PM EDT [facility] Blood Venous blood specimen / Unknown Venipuncture / Unknown 05/18/2024 7:20 AM EDT 05/18/2024 9:58 AM EDT us Elsy MONTERO LAB BLOOD ORDERABLES Final Re sult [facility] [address] [place] [address], [place] [phone] * (ABNORMAL) Basic metabolic panel (05/18/2024 7:20 AM EDT) Sodium 136 133 - 145 mmol/L LAB CHEMISTRY METHOD 05/18/2024 10:[address] [facility] Potassium 4.8 3.5 - 5.5 mmol/L LAB CHEMISTRY METHOD 05/18/2024 10:[address] [facility] Chloride 100 96 - 110 mmol/L LAB CHEMISTRY METHOD 05/18/2024 10:[address] [facility] CO2 28 21 - 32 mmol/L LAB CHEMISTRY METHOD 05/18/2024 10:[address] [facility] Anion Gap 8 3 - 11 LAB CHEMISTRY METHOD 05/18/2024 10:[address] [facility] Glucose 77 70 - 100 mg/dL LAB CHEMISTRY METHOD 05/18/2024 10:[address] [facility] BUN 43(H) 5 - 25 mg/dL LAB CHEMISTRY METHOD 05/18/2024 10:[address] [facility] Creatinine 6.49(H) 0.70 - 1.30 mg/dL LAB CHEMISTRY METHOD 05/18/2024 10:[address] [facility] eGFR 9(L) >=60 mL/min/1. 73m2 LAB CHEMISTRY METHOD 05/18/2024 10:[address] [facility] Comment:Calculation based on the??Chronic Kidney Disease Epidemiology Collaboration (CKD-EPI) equation refit??without adjustment for race. BUN/Creatinine Ratio 6.6 LAB CHEMISTRY METHOD 05/18/2024 10:[address] [facility] Calcium 9.0 8.5 - 10.5 mg/dL LAB CHEMISTRY METHOD 05/18/2024 10:41 AM EDT [facility] Blood Venous blood specimen / Unknown Venipuncture / Unknown 05/18/2024 7:20 AM EDT 05/18/2024 9:58 AM EDT us Elsy MONTERO LAB BLOOD ORDERABLES Final Re sult [facility] [address] [place] [address], documented in this encounter Visit Diagnoses Diagnosis Unspecified systolic (congestive) heart failure ([facility] V24, [facility] V28) Type 2 diabetes mellitus without complications ([facility] V24, [facility] V28) End stage renal disease ([facility] V24, [facility] V28) End stage renal disease documented in this encounter Care Teams Special Education Superintendent Relationship Specialty Start Date End Date Cass Turcios MD [address] [place] [address] [address] [place] [address] PCP - General Geriatric Medicine 04/02/24 documented as of this encounter
--- OUTSIDE RECORDS SUMMARY | 2024-06-18 19:13 | XMS_ITS | Encounter Summary ---
Author Organization [facility], Address [address] [place] [address] Phone Care Team Providers Care Garde Manger Name Role Phone Jade Lewis MD Primary Care Provider [phone] Reason for Visit * Reason Comments Med Refill Encounter Details Date Type Department Care Team ([facility] st Contact Info) Description 10/28/2020 Refill [facility] [address] [place] [phone] Alejandro Santana MD [address] [place] [id number] Social History Tobacco Use Types Packs/Day Years [...] on filedocumented in this encounter Care Teams Garde Manger Relationship Specialty Start Date End Date Jade Lewis MD [address] [place] [address] PCP - General Internal Medicine 04/25/22 documented as of this encounter
--- OUTSIDE RECORDS SUMMARY | 2024-06-18 19:13 | XMS_ITS | Encounter Summary ---
Author Organization [facility], Address [address] [place] [address] Phone Care Team Providers Care Escalator Installer Name Role Phone Jade Lewis MD Primary Care Provider [phone] Reason for Visit * Reason Comments Med Refill Encounter Details Date Type Department Care Team (Late st Contact Info) Description 09/17/2022 Refill [facility] [address] [place] [phone] Malcolm Taylor MD [address] [place] [address] [place] [address] Social History Tobacco Use Types Packs/Day Years [...] on filedocumented in this encounter Care Teams Escalator Installer Relationship Specialty Start Date End Date Jade Lewis MD [address] [place] [address] PCP - General Internal Medicine 04/25/22 documented as of this encounter
--- OUTSIDE RECORDS SUMMARY | 2024-06-18 19:13 | XMS_ITS | Encounter Summary ---
Author Organization [facility] Address [address] [place] [address] Care Team Providers Care Certified Low Vision Therapist Name Role Phone Cass Turcios MD Primary Care Provider [phone] Encounter Details Date Type Department Care Team (Late st Contact Info) Description 05/20/2024 Lab Requisition [facility] - Main Lab [address] [facility] [place] [address] Laurence Florence MD [address] [place] [phone] Elevated white blood cell count, unspecified Social [...] your loved ones. For example, child care attendant school or elderly care for an older adult? [...] LAB CHEMISTRY METHOD 05/20/2024 1:[address] [facility] Alkaline Phosphatase 142(H) 42 - 121 unit/L LAB CHEMISTRY METHOD 05/20/2024 1:[address] [facility] Total Protein 6.1 6.0 - 8.0 g/dL LAB CHEMISTRY METHOD 05/20/2024 1:[address] [facility] Albumin 2.5(L) 3.2 - 5.0 g/dL LAB CHEMISTRY METHOD 05/20/2024 1:[address] [facility] Total Bilirubin 0.4 0.0 - 1.4 mg/dL LAB CHEMISTRY METHOD 05/20/2024 1:[address] [facility] Blood Venous blood specimen / Unknown Venipuncture / Unknown 05/20/2024 6:04 AM EDT 05/20/2024 11:40 AM EDT us Laurence Florence MD LAB BLOOD ORDERABLES Final Resu lt [facility] [address] [place] [address], * (ABNORMAL) Complete blood count (05/20/2024 6:04 AM EDT) WBC 15.6(H) 4.8 - 10.8 K/mcL LAB HEMETOLOGY METHOD 05/20/2024 1:[address] [facility] RBC 3.50(L) 4.50 - 5.50 M/mcL LAB HEMETOLOGY METHOD 05/20/2024 1:[address] [facility] Hemoglobin 8.6(L) 13.5 - 17.5 g/dL LAB HEMETOLOGY METHOD 05/20/2024 1:[address] [facility] Hematocrit 29.0(L) 42.0 - 54.0 % LAB HEMETOLOGY METHOD 05/20/2024 1:[address] [facility] MCV 82.9 79.0 - 98.0 FL LAB HEMETOLOGY METHOD 05/20/2024 1:[address] [facility] MCH 24.6(L) 27.0 - 32.0 pcg LAB HEMETOLOGY METHOD 05/20/2024 1:[address] [facility] MCHC 29.7(L) 32.0 - 37.0 g/dL LAB HEMETOLOGY METHOD 05/20/2024 1:[address] [facility] RDW 19.1(H) 11.0 - 15.0 % LAB HEMETOLOGY METHOD 05/20/2024 1:[address] [facility] Platelets 479(H) 130 - 400 K/mcL LAB HEMETOLOGY METHOD 05/20/2024 1:[address] [facility] MPV 11.3(H) 7.0 - 11.0 FL LAB HEMETOLOGY METHOD 05/20/2024 1:[address] [facility] NRBC 0.0 <1.0 % LAB HEMETOLOGY METHOD 05/20/2024 1:[address] [facility] NRBC Absolute 0.00 <0.10 K/mcL LAB HEMETOLOGY METHOD 05/20/2024 1:[address] [facility] Blood Venous blood specimen / Unknown Venipuncture / Unknown 05/20/2024 6:04 AM EDT 05/20/2024 11:40 AM EDT us Laurence Florence MD LAB BLOOD ORDERABLES Final Resu lt [facility] [address] [place] [address], documented in this encounter Visit Diagnoses Diagnosis Elevated white blood cell count, unspecified documented in this encounter Care Teams Certified Low Vision Therapist Relationship Specialty Start Date End Date Cass Turcios MD [address] [place] [address] [address] [place] [address] PCP - General Geriatric Medicine 04/02/24 documented as of this encounter
--- OUTSIDE RECORDS SUMMARY | 2024-06-18 19:13 | XMS_ITS | Encounter Summary ---
Author Organization [facility] Address [address] [place] [address] Care Team Providers Care Cytotechnologist/Cytology Supervisor Name Role Phone Cass Turcios MD Primary Care Provider [phone] Encounter Details Date Type Department Care Team (Late st Contact Info) Description 05/30/2024 Lab Requisition [facility] - Main Lab [address] [facility] [place] [address] Laurence Florence MD [address] [place] [phone] Chronic respiratory failure with hypoxia (CMS/HCC V24, [...] for your loved ones. For example, director of early childhood education or elderly care for an older adult? [...] CENTER LAB Blood Venipuncture / Unknown 05/30/2024 7:36 AM EDT 05/30/2024 8:11 AM EDT us Laurence Florence MD LAB MICROBIOLOGY - GENERAL MALAIKA HURD Final Result [facility] [address] [place] [address], [place] [phone] * Lactate (05/30/2024 7:36 AM EDT) [facility] Lactate 0.6 0.4 - 2.0 mmol/L LAB CHEMISTRY METHOD 05/30/2024 8:47 AM EDT [facility] Blood Venous blood specimen / Unknown Venipuncture / Unknown 05/30/2024 7:36 AM EDT 05/30/2024 8:11 AM EDT us Laurence Florence MD LAB BLOOD ORDERABLES Final Resu lt [facility] [address] [place] [address], [place] [phone] * (ABNORMAL) C-reactive protein (05/30/2024 7:36 AM EDT) [facility] C-Reactive Protein 11.60(H) <=0.50 mg/dL LAB CHEMISTRY METHOD 05/30/2024 8:51 AM EDT [facility] Blood Venous blood specimen / Unknown Venipuncture / Unknown 05/30/2024 7:36 AM EDT 05/30/2024 8:11 AM EDT us Laurence Florence MD LAB BLOOD ORDERABLES Final Resu lt [facility] [address] [place] [address], [place] [phone] * (ABNORMAL) Sedimentation rate (05/30/2024 7:36 AM EDT) [facility] Sed Rate >130(H) 0 - 20 mm/hr LAB HEMETOLOGY METHOD 05/30/2024 8:57 AM EDT [facility] Blood Venous blood specimen / Unknown Venipuncture / Unknown 05/30/2024 7:36 AM EDT 05/30/2024 8:11 AM EDT Narrative [facility] - 05/30/2024 8:57 AM EDT Rechecked. us Laurence Florence MD LAB BLOOD ORDERABLES Final Resu lt [facility] [address] [place] [address], [place] [phone] * (ABNORMAL) Comprehensive metabolic panel (05/30/2024 7:36 AM EDT) Sodium 140 133 - 145 mmol/L LAB CHEMISTRY METHOD 05/30/2024 9:08 AM [facility] Potassium 4.2 3.5 - 5.5 mmol/L LAB CHEMISTRY METHOD 05/30/2024 9:08 AM [facility] Chloride 104 96 - 110 mmol/L LAB CHEMISTRY METHOD 05/30/2024 9:08 AM [facility] CO2 28 21 - 32 mmol/L LAB CHEMISTRY METHOD 05/30/2024 9:08 AM [facility] Anion Gap 8 3 - 11 LAB CHEMISTRY METHOD 05/30/2024 9:08 AM [facility] Glucose 77 70 - 100 mg/dL LAB CHEMISTRY METHOD 05/30/2024 9:08 AM [facility] BUN 35(H) 5 - 25 mg/dL LAB CHEMISTRY METHOD 05/30/2024 9:08 AM [facility] Creatinine 5.30(H) 0.70 - 1.30 mg/dL LAB CHEMISTRY METHOD 05/30/2024 9:08 AM [facility] eGFR 11(L) >=60 mL/min/1. 73m2 LAB CHEMISTRY METHOD 05/30/2024 9:08 AM [facility] Comment:Calculation based on the??Chronic Kidney Disease Epidemiology Collaboration (CKD-EPI) equation refit??without adjustment for race. BUN/Creatinine Ratio 6.6 LAB CHEMISTRY METHOD 05/30/2024 9:08 AM [facility] Calcium 9.0 8.5 - 10.5 mg/dL LAB CHEMISTRY METHOD 05/30/2024 9:08 AM [facility] AST (SGOT) 10 10 - 42 unit/L LAB CHEMISTRY METHOD 05/30/2024 9:08 AM [facility] ALT (SGPT) 13 10 - 60 unit/L LAB CHEMISTRY METHOD 05/30/2024 9:08 AM [facility] Alkaline Phosphatase 141(H) 42 - 121 unit/L LAB CHEMISTRY METHOD 05/30/2024 9:08 AM [facility] Total Protein 6.3 6.0 - 8.0 g/dL LAB CHEMISTRY METHOD 05/30/2024 9:08 AM [facility] Albumin 2.5(L) 3.2 - 5.0 g/dL LAB CHEMISTRY METHOD 05/30/2024 9:08 AM [facility] Total Bilirubin 0.5 0.0 - 1.4 mg/dL LAB CHEMISTRY METHOD 05/30/2024 9:08 AM [facility] Blood Venous blood specimen / Unknown Venipuncture / Unknown 05/30/2024 7:36 AM EDT 05/30/2024 8:11 AM EDT us Laurence Florence MD LAB BLOOD ORDERABLES Final Resu lt [facility] [address] [place] [address], * (ABNORMAL) Complete blood count (05/30/2024 7:36 AM EDT) WBC 9.7 4.8 - 10.8 K/mcL LAB HEMETOLOGY METHOD 05/30/2024 8:29 AM EDT [facility] RBC 3.20(L) 4.50 - 5.50 M/mcL LAB HEMETOLOGY METHOD 05/30/2024 8:29 AM [facility] Hemoglobin 7.7(L) 13.5 - 17.5 g/dL LAB HEMETOLOGY METHOD 05/30/2024 8:29 AM [facility] Hematocrit 26.0(L) 42.0 - 54.0 % LAB HEMETOLOGY METHOD 05/30/2024 8:29 AM [facility] MCV 81.5 79.0 - 98.0 FL LAB HEMETOLOGY METHOD 05/30/2024 8:29 AM [facility] MCH 24.1(L) 27.0 - 32.0 pcg LAB HEMETOLOGY METHOD 05/30/2024 8:29 AM [facility] MCHC 29.6(L) 32.0 - 37.0 g/dL LAB HEMETOLOGY METHOD 05/30/2024 8:29 AM [facility] RDW 17.8(H) 11.0 - 15.0 % LAB HEMETOLOGY METHOD 05/30/2024 8:29 AM [facility] Platelets 244 130 - 400 K/mcL LAB HEMETOLOGY METHOD 05/30/2024 8:29 AM [facility] MPV 11.1(H) 7.0 - 11.0 FL LAB HEMETOLOGY METHOD 05/30/2024 8:29 AM [facility] NRBC 0.0 <1.0 % LAB HEMETOLOGY METHOD 05/30/2024 8:29 AM [facility] NRBC Absolute 0.00 <0.10 K/mcL LAB HEMETOLOGY METHOD 05/30/2024 8:29 AM [facility] Blood Venous blood specimen / Unknown Venipuncture / Unknown 05/30/2024 7:36 AM EDT 05/30/2024 8:11 AM EDT us Laurence Florence MD LAB BLOOD ORDERABLES Final Resu lt [facility] [address] [place] [address], documented in this encounter Visit Diagnoses Diagnosis Chronic respiratory failure with hypoxia (CMS/[facility] V24, CMS/[facility] V28) Encounter for orthopedic aftercare following surgical amputation Encounter for surgical aftercare following surgery on the circulatory system Peripheral vascular disease, unspecified ([facility] V24) Peripheral vascular disease, unspecified documented in this encounter Care Teams Cytotechnologist/Cytology Supervisor Relationship Specialty Start Date End Date Cass Turcios MD [address] [place] [address] [address] [place] [address] PCP - General Geriatric Medicine 04/02/24 documented as of this encounter
--- OUTSIDE RECORDS SUMMARY | 2024-06-18 19:13 | XMS_ITS | Encounter Summary ---
Author Organization [facility] Address [address] [place] [address] Care Team Providers Care Senior Ui Designer Name Role Phone Cass Turcios MD Primary Care Provider [phone] Encounter Details Date Type Department Care Team (Late st Contact Info) Description 05/30/2024 Lab Requisition [facility] - Main Lab [address] [facility] [place] [address] Laurence Florence MD [address] [place] [id number] Chronic respiratory failure with hypoxia (CMS/HCC V24, [...] for your loved ones. For example, children's lunchroom supervisor or elderly care for an older [...] LAB MICROBIOLOGY METHOD 06/04/2024 9:01 AM EDT [facility] Blood Venipuncture / Unknown 05/30/2024 7:41 AM EDT 05/30/2024 8:14 AM EDT us Laurence Florence MD LAB MICROBIOLOGY - [facility]URD Final Result [facility] ([facility] [address] [place] [address], documented in this encounter Visit Diagnoses Diagnosis Chronic respiratory failure with hypoxia (CMS/HCC V24, CMS/HCC V28) Encounter for orthopedic aftercare following surgical amputation Encounter for surgical aftercare following surgery on the circulatory system Peripheral vascular disease, unspecified ([facility] V24) Peripheral vascular disease, unspecified documented in this encounter Care Teams Senior Ui Designer Relationship Specialty Start Date End Date Cass Turcios MD [address] [place] [phone] [id number] [place] [address] PCP - General Geriatric Medicine 04/02/24 documented as of this encounter
[2024-06-18 19:27] VITALS: BP 220/93; PULSE 72; RESP 20; TEMP 36.8; O2SAT 94
--- NOTE | 2024-06-18 19:30 | PC.NURSE ---
Dressing applied to right lower extremity, right above the knee amputation. Used pink Allevyn dressing, secured to wound. Wound was cultured earlier today by provider and sent for analysis. Results pending. Wound is unstageable with mixed depth to this RN. Minimal drainage noted. Additional supplies provided for home use. Instructed to follow up with vascular team. Dr. Alvarez spoke with vascular team regarding follow up.
== END 2024-06-18 19:27 | disposition home or self-care (01) ==
PROVIDERS: Physician Assistant; Emergency Provider Emergency Medicine
DX: T87.81 Dehiscence of amputation stump (principal); I77.6 Arteritis, unspecified; E11.22 Type 2 diabetes mellitus with diabetic chronic kidney disease; I13.2 Hypertensive heart and chronic kidney disease with heart failure and with stage 5 chronic kidney disease, or end stage renal disease; I50.9 Heart failure, unspecified; E11.52 Type 2 diabetes mellitus with diabetic peripheral angiopathy with gangrene; I96 Gangrene, not elsewhere classified; E11.622 Type 2 diabetes mellitus with other skin ulcer; L97.129 Non-pressure chronic ulcer of left thigh with unspecified severity; N18.6 End stage renal disease; E78.5 Hyperlipidemia, unspecified; J96.90 Respiratory failure, unspecified, unspecified whether with hypoxia or hypercapnia; G47.33 Obstructive sleep apnea (adult) (pediatric); Z99.2 Dependence on renal dialysis; Z89.611 Acquired absence of right leg above knee; Z99.81 Dependence on supplemental oxygen
CPT/HCPCS: 36415; 73560; 80053; 85025; 85652; 86140; 87070; 87077; 87186; 87205; 99212; 99283

== ENCOUNTER → 2024-06-18 15:48 | Outpatient (BNV) | payer MEDICARE, MEDICAID, SELFPAY | PROVIDERS: Visit Provider Radiology Diagnostic Radiology | DX: M79.89 Other specified soft tissue disorders (principal) | CPT/HCPCS: 73560 ==

== ENCOUNTER 2024-07-02 13:02 | Outpatient (AMB) | payer MEDICARE, MEDICAID, SELFPAY ==
--- NOTE | 2024-07-02 13:13 | A.OFFVIS_ITS ---
Intake Visit Reasons: Follow up wound check Intake Note: follow up Right AKA incision. Pt states heavy drainage and gets dressing changed daily with alginate and ABD pad Quill Machine Tender Required: No Accompanied by: Son Allergies Iodinated Contrast Media [Contrast Dye] Allergy (Severe, Verified 07/02/24 14:24) Facial Swelling hydralazine Adverse Reaction (Severe, Verified 07/02/24 14:24) vasculitis HPI HPI Follow up wound check: Details: Pleasant 69-year-old gentleman presents for follow-up regarding nonhealing right lower extremity stump. He had an AKA on 06/06/2024. He appears to be doing relatively better today. He is less agitated in in general much better spirits. He now presents for follow-up regarding his right stump. He has a nonhealing left great toe ulcer. In addition he has necrotic upper extremity digits as well. [facility] Medical History Type 2 diabetes mellitus Dry gangrene PVD (peripheral vascular disease) ESRD needing dialysis Above knee amputation of right lower extremity Left ventricular systolic dysfunction (LVSD) Postop check Acute pericardial effusion Right sided weakness Dehiscence of wound Peripheral arterial disease Cellulitis of right foot Hypertension HFrEF (heart failure with reduced ejection fraction) ESRD (end stage renal disease) Chronic combined systolic and diastolic CHF (congestive heart failure) Chronic pericardial effusion Arthritis Asthma Restless leg syndrome Acute on chronic systolic and diastolic heart failure, NYHA class 3 Anemia ESRD (end stage renal disease) Occlusive thrombus Pulmonary edema ROBERT (obstructive sleep apnea) Hyperlipidemia Hypertension A-V fistula ESRD on dialysis Falling Surgical History Status post creation of pericardial window Postop check Hx of right BKA Status post transmetatarsal amputation of right foot History of transmetatarsal amputation of foot History of surgery H/O colonoscopy Recurrent pleural effusion Pleural effusion on right (07/13/23) Family History Father No problems noted. Mother No problems noted. 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 Review of Systems Const All systems reviewed & are unremarkable except as noted in HPI and below Reports no additional complaints ENT Reports Normal hearing present Card Denies chest pain, Denies chest pain at rest, Denies chest pain with activity and Denies pedal edema Resp Denies cough GI Denies abdominal pain Musc Denies abnormal gait, Denies muscle cramps and Denies radiating pain into limb Skin/Breast Denies skin ulcer and Denies wounds Neuro Reports Normal hearing present and Denies abnormal gait Psych Reports no additional complaints Physical Exam Const General: cooperative, healthy appearing and comfortable Orientation/consciousness: oriented to person, oriented to place and oriented to time HEENT Head: Yes normal to inspection Neck Neck: Yes normal visual inspection Carotids: no bruits Chest Chest palpation & inspection: normal inspection of the chest Resp Effort & Inspection: normal respiratory effort and able to speak in complete sentences Auscultation: clear to auscultation bilaterally, no crackles, no rales, no rhonchi and no wheezes Cardio Rate: regular rate Rhythm: regular rhythm Heart sounds: S1 normal heart sound present and S2 normal heart sound present Bruits: no carotid bruits Peripheral pulses: Peripheral pulses 2+ throughout GI Inspection: Yes normal to inspection Skin Other: Right AKA stump has large ulcerated area on the lateral aspect measuring 4 x 5 x 1.5 cm. There is overlying fibrinous and necrotic tissue. Wounds: no wounds Hair: normal Neuro General: oriented to person, oriented to place and oriented to time Cranial nerves: Yes CN's II-XII intact bilaterally and Yes Normal hearing present Cognition (Neuro): normal cognition Motor exam (neuro): 5/5 motor strength present throughout Extrem Other: venous exam: No significant superficial varicosities or spider telangiectasias, minimal edema General: No clubbing, No cyanosis and No edema Psych Appearance: grossly normal Mental Status: mental status grossly normal Speech and movement: Normal speech and movement present Office Procedures Vascular Office Procedure Details Details: Wound debridement note: Preoperative diagnosis: Nonhealing right AKA stump Postoperative diagnosis: Same Procedure: Excisional debridement into muscle Anesthesia: None Estimated blood loss: Minimal Pre-procedure measurement and appearance: 4 x 5 x 1.5 with fibrinous necrotic material Postprocedure measurement and appearance: 4.5 x 5.5 x 1.7 cm with reasonable granulation base Procedure in detail: Excisional debridement of the muscle was carried out.. Necrotic devitalized and nonviable tissue was removed. We debrided into muscle using pickups Metzenbaum scissors and curette. Wound was thoroughly irrigated. At the conclusion wound appeared relatively clean with some residual fibrinous material underlying. Clean and sterile dressing was applied. Patient tolerated the procedure well. Instructions were given to the patient. Follow-up was suggested. This note is constructed using voice recognition software. While every effort has been made to ensure accuracy, prepared foods team leader errors may have been included. Thank you for allowing me to participate in the care of your patient. Yours sincerely, Baltazar Cannon MD, FACS, R.P.V.I. [id number] Debridement, muscle and or fascia (lst 20 sq cm or less) All charges added?: Procedure code (CPT) selection complete Assessment & Plan Assessment & Plan (1) PVD (peripheral vascular disease): Code(s): I73.9 - Peripheral vascular disease, unspecified Category: Medical Plan: In short patient has nonhealing right lower extremity stump. We will continue with local wound care and debridement. Due to his overall status would like to manage this as conservatively as possible. We did discuss the importance of continued risk factor modification and good nutrition. He will follow up with us in approximately 2 weeks time. Thank you for allowing us to assist in his care. Coding Level of Care Code Est Pt Level 4 (22381) Complex EM visit Add On G2211 Diagnoses PVD (peripheral vascular disease) I73.9
--- OUTSIDE RECORDS SUMMARY | 2024-07-02 14:59 | XMS_ITS | Encounter Summary ---
Author Organization [facility], Address [address] [place] [address] Phone Care Team Providers Care Frozen Meat Cutter Name Role Phone Jade Lewis MD Primary Care Provider + [phone] Encounter Details Date Type Department Care Team (Late st Contact Info) Description 06/26/2024 Orders Only [facility] [address] [place] [address] Car Mcdonald MD [address] [place] [address] [place] [address] Social History Tobacco Use Types Packs/Day Years [...] Priority Date/Time Associated Diagnosis Comments HEMATOLOGY Routine 06/26/2024 documented in this encounter Results * (ABNORMAL) HEMATOLOGY (06/26/2024) Hemoglobin 9.9(L) 14.0 - 18.0 g/dL [facility] Hemoglobin x 3 29.7(L) 42.0 - 54.0 % [facility] 06/26/2024 06/27/2024 8:1 1 AM EDT Narrative [facility] - 06/27/2024 Unless otherwise specified, test(s) performed at: [facility], [address] [place] [address] BICYCLE I ASSEMBLER: Homero Garcia M.D. For any questions, please call customer service at FREQUENCY:OTHER Resulting Agency Comment Specimen source: Blood us Car Mcdonald MD LAB BLOOD ORDERABLES Final Re sult [facility] See order comments or contact performing lab Unknown, [place] documented in this encounter Visit Diagnoses Not on filedocumented in this encounter Care Teams Frozen Meat Cutter Relationship Specialty Start Date End Date Jade Lewis MD [address] [place] [address] PCP - General Internal Medicine 04/25/22 documented as of this encounter
--- OUTSIDE RECORDS SUMMARY | 2024-07-02 15:00 | XMS_ITS | Encounter Summary ---
Author Organization [facility] Address [address] [place] [address] Care Team Providers Care Powerhouse Operator Name Role Phone Cass Turcios MD Primary Care Provider [phone] Encounter Details Date Type Department Care Team (Late st Contact Info) Description 05/31/2024 Lab Requisition [facility] - Main Lab [address] [facility] [place] [address] Laurence Florence MD [address] [place] [id number] End stage renal disease (CMS/HCC V24, CMS/HCC [...] CBC auto differential (05/31/2024 6:09 AM EDT) [facility] Signature WBC 10.9(H) 4.8 - 10.8 [...] lt [facility] [address] [place] [address], * (ABNORMAL) Basic metabolic panel (05/31/2024 6:09 [...] LAB CHEMISTRY METHOD 05/31/2024 11:03 AM EDT [facility] eGFR 8(L) >=60 mL/min/1. 73m2 LAB CHEMISTRY METHOD 05/31/2024 11:03 AM EDT [facility] Comment:Calculation based on the??Chronic Kidney Disease Epidemiology Collaboration (CKD-EPI) equation refit??without adjustment for race. BUN/Creatinine Ratio 7.2 LAB CHEMISTRY METHOD 05/31/2024 11:03 AM EDT [facility] Calcium 8.2(L) 8.5 - 10.5 mg/dL LAB CHEMISTRY METHOD 05/31/2024 11:03 AM EDT [facility] Blood Venous blood specimen / Unknown Venipuncture / Unknown 05/31/2024 6:09 AM EDT 05/31/2024 9:24 AM EDT us Laurence Florence MD LAB BLOOD ORDERABLES Final Resu lt [facility] [address] [place] [address], documented in this encounter Visit Diagnoses Diagnosis End stage renal disease (CMS/HCC V24, CMS/HCC V28) End stage renal disease Anemia, unspecified documented in this encounter Care Teams Powerhouse Operator Relationship Specialty Start Date End Date Cass Turcios MD [address] [place] [address] [address] [place] [address] PCP - General Geriatric Medicine 04/02/24 documented as of this encounter
--- OUTSIDE RECORDS SUMMARY | 2024-07-02 15:00 | XMS_ITS | Encounter Summary ---
Author Organization [facility] Address [address] [place] [address] Phone Care Team Providers Care Data Entry Processor Name Role Phone Jade Lewis MD Primary Care Provider + [phone] Reason for Visit * Reason Comments Med Refill Encounter Details Date Type Department Care Team (Late st Contact Info) Description 04/30/2021 Refill [facility] [address] [place] [id number] Alejandro Santana MD [address] [place] [phone] Social History Tobacco Use Types Packs/Day Years [...] on filedocumented in this encounter Care Teams Data Entry Processor Relationship Specialty Start Date End Date Jade Lewis MD [address] [place] [address] PCP - General Internal Medicine 04/25/22 documented as of this encounter
--- OUTSIDE RECORDS SUMMARY | 2024-07-02 15:00 | XMS_ITS | Clinical Summary ---
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 Name Role Phone Cass Turcios MD Primary Care Provider [phone] Allergies No known active allergies Medications Ventolin [...] Department Care Team Description 06/06/2024 Lab Requisition [facility] [address] [place] [address] Laurence Florence MD Cellulitis of right lower limb; End stage renal disease ([facility] V24, [facility] [place] 05/31/2024 Lab Requisition [facility] [address] [facility] [place] [address] Laurence Florence MD End stage renal disease ([facility] [place] [facility] Anemia, unspecified 05/30/2024 Lab Requisition [facility] [address] [place] [address] Laurence Florence MD Chronic respiratory failure with hypoxia ([facility] [place] [facility] Encounter for orthopedic aftercare following surgical amputation; Encounter for surgical aftercare following surgery on the circulatory system; Peripheral vascular disease, unspecified ([facility] [place] 05/30/2024 Lab Requisition [facility] [address] [place] [phone] Laurence Florence MD Chronic respiratory failure with hypoxia ([facility] [place], [facility] [place] Encounter for orthopedic aftercare following surgical amputation; Encounter for surgical aftercare following surgery on the circulatory system; Peripheral vascular disease, unspecified ([facility] [place] 05/28/2024 Lab Requisition [facility] [address] [place] [phone] Laurence Florence MD Anemia, unspecified; End stage renal disease ([facility] [place] [facility] Unspecified asthma, uncomplicated 05/24/2024 Lab Requisition [facility] [address] [place] [phone] Laurence Florence MD Chronic combined systolic (congestive) and diastolic (congestive) heart failure ([facility] [place], [facility] [place]); Type 2 diabetes mellitus without complications ([facility] [place], [facility]); End stage renal disease ([facility] [place], [facility]) 05/21/2024 Lab Requisition [facility] [address] [place] [phone] Laurence Florence MD Chronic combined systolic (congestive) and diastolic (congestive) heart failure ([facility]); End stage renal disease ([facility] [facility] [place]) 05/20/2024 Lab Requisition [facility] [address] [place] [phone] Laurence Florence MD Elevated white blood cell count, unspecified 05/18/2024 Lab Requisition [facility] [address] [place] [phone] Elsy Christina PA Unspecified systolic (congestive) heart failure ([facility] [place], [facility]); Type 2 diabetes mellitus without complications ([facility]); End stage renal disease ([facility], [facility] V28) 05/17/2024 Lab Requisition [facility] [address] [facility] [place] [address] Laurence Florence MD Type 2 diabetes mellitus without complications ([facility] [place]); End stage renal disease ([facility], [facility] V28) from Last 3 Months Surgical History Surgery Date Site/Laterality Comments TOE AMPUTATION IR DIALYSIS CATH INSERT VASCULAR ACCESS Medical History Medical History Date Comments ESRD (end stage renal disease) on dialysis ([facility] V24, [facility] MWF Hypertension Hyperlipidemia Gouty arthritis Diabetes mellitus ([facility], [facility] [place]) GERD (gastroesophageal reflux disease) COPD (chronic obstructive pulmonary disease) ([facility] V24, [facility] Social History Tobacco Use Types Packs/Day [...] care for your loved ones. 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 WBC 9.3 4.8 - 10.8 K/mcL LAB HEMETOLOGY METHOD 06/06/2024 8:35 AM [facility] RBC 3.20(L) 4.50 - 5.50 M/mcL LAB HEMETOLOGY METHOD 06/06/2024 8:35 AM [facility] Hemoglobin 7.6(L) 13.5 - 17.5 g/dL LAB HEMETOLOGY METHOD 06/06/2024 8:35 AM [facility] LAB Hematocrit 26.2(L) 42.0 - 54.0 % LAB HEMETOLOGY METHOD 06/06/2024 8:35 AM [facility] MCV 80.9 79.0 - 98.0 FL LAB HEMETOLOGY METHOD 06/06/2024 8:35 AM [facility] LAB MCH 23.5(L) 27.0 - 32.0 pcg LAB HEMETOLOGY METHOD 06/06/2024 8:[address] [facility] MCHC 29.0(L) 32.0 - 37.0 g/dL LAB HEMETOLOGY METHOD 06/06/2024 8:[address] [facility] RDW 16.8(H) 11.0 - 15.0 % LAB HEMETOLOGY METHOD 06/06/2024 8:[address] [facility] Platelets 264 130 - 400 K/mcL LAB HEMETOLOGY METHOD 06/06/2024 8:[address] [facility] MPV 12.3(H) 7.0 - 11.0 FL LAB HEMETOLOGY METHOD 06/06/2024 8:[address] [facility] NRBC 0.0 <1.0 % LAB HEMETOLOGY METHOD 06/06/2024 8:[address] [facility] NRBC Absolute 0.00 <0.10 K/mcL LAB HEMETOLOGY METHOD 06/06/2024 8:[address] [facility] Blood Venous blood specimen / Unknown Venipuncture / Unknown 06/06/2024 5:35 AM EDT 06/06/2024 8:10 AM EDT us Laurence Florence MD LAB BLOOD ORDERABLES Final Resu lt [facility] [address] [place] [address], * (ABNORMAL) Basic metabolic panel (06/06/2024 5:35 AM EDT) Only the most recent of6 resultswithin the time period is included. Sodium 139 133 - 145 mmol/L LAB CHEMISTRY METHOD 06/06/2024 8:[address] [facility] Potassium 4.3 3.5 - 5.5 [...] MD LAB BLOOD ORDERABLES Final Resu lt [facility] [address] [place] [address], [place] [phone] * (ABNORMAL) CBC auto differential (05/31/2024 6:09 AM EDT) Only the most recent of4 resultswithin the time period is included. WBC 10.9(H) 4.8 - 10.8 K/mcL LAB HEMETOLOGY METHOD 05/31/2024 10:13 AM [facility] RBC 3.20(L) 4.50 - 5.50 M/mcL LAB HEMETOLOGY METHOD 05/31/2024 10:13 AM [facility] Hemoglobin 7.7(L) 13.5 - 17.5 g/dL LAB HEMETOLOGY METHOD 05/31/2024 10:13 AM [facility] Hematocrit 26.1(L) 42.0 - 54.0 % LAB HEMETOLOGY METHOD 05/31/2024 10:13 AM [facility] MCV 81.8 79.0 - 98.0 FL LAB HEMETOLOGY METHOD 05/31/2024 10:13 AM [facility] MCH 24.1(L) 27.0 - 32.0 pcg LAB HEMETOLOGY METHOD 05/31/2024 10:13 AM [facility] MCHC 29.5(L) 32.0 - 37.0 g/dL LAB HEMETOLOGY METHOD 05/31/2024 10:13 AM [facility] RDW 17.8(H) 11.0 - 15.0 % LAB HEMETOLOGY METHOD 05/31/2024 10:13 AM [facility] Platelets 227 130 - 400 K/mcL LAB HEMETOLOGY METHOD 05/31/2024 10:13 AM [facility] LAB MPV 10.6 7.0 - 11.0 FL LAB HEMETOLOGY METHOD 05/31/2024 10:13 AM [facility] LAB NRBC 0.0 <1.0 % LAB HEMETOLOGY METHOD 05/31/2024 10:13 AM [facility] LAB NRBC Absolute 0.00 <0.10 K/mcL LAB HEMETOLOGY METHOD 05/31/2024 10:13 AM [facility] Neutrophils Relative 69.5 % LAB HEMETOLOGY METHOD 05/31/2024 10:13 AM [facility] Lymphocytes Relative 19.2 % LAB HEMETOLOGY METHOD 05/31/2024 10:13 AM [facility] Monocytes Relative 8.4 % LAB HEMETOLOGY METHOD 05/31/2024 10:13 AM [facility] Eosinophils Relative 1.8 % LAB HEMETOLOGY METHOD 05/31/2024 10:13 AM [facility] Basophils Relative 0.5 % LAB HEMETOLOGY METHOD 05/31/2024 10:13 AM [facility] Immature Granulocytes Relative 0.6 % LAB HEMETOLOGY METHOD 05/31/2024 10:13 AM [facility] Neutrophils Absolute 7.60(H) 1.50 - 7.00 K/mcL LAB HEMETOLOGY METHOD 05/31/2024 10:13 AM [facility] Lymphocytes Absolute 2.10 1.00 - 5.00 K/mcL LAB HEMETOLOGY METHOD 05/31/2024 10:13 AM [facility] Monocytes Absolute 0.92 0.20 - 1.00 K/mcL LAB HEMETOLOGY METHOD 05/31/2024 10:13 AM [facility] Eosinophils Absolute 0.20 0.00 - 0.50 K/mcL LAB HEMETOLOGY METHOD 05/31/2024 10:13 AM [facility] Basophils Absolute 0.05 0.00 - 0.20 K/mcL LAB HEMETOLOGY METHOD 05/31/2024 10:13 AM [facility] Immature Granulocytes Absolute 0.07(H) 0.00 - 0.03 K/mcL LAB HEMETOLOGY METHOD 05/31/2024 10:[address] [facility] Blood Venous blood specimen / Unknown Venipuncture / Unknown 05/31/2024 6:09 AM EDT 05/31/2024 9:24 AM EDT us Laurence Florence MD LAB BLOOD ORDERABLES Final Resu lt Performing Organization Address [facility]/ZIP Co de Phone Number [facility] [address] [place] [address], [place] [phone] * Culture blood (05/30/2024 7:41 AM EDT) Only the most recent of2 resultswithin the time period is included. Culture, Blood No growth at 5 days LAB MICROBIOLOGY METHOD 06/04/2024 9:[address] [facility] Blood Venipuncture / Unknown 05/30/2024 7:41 AM EDT 05/30/2024 8:14 AM EDT us Laurence Florence MD LAB MICROBIOLOGY - GENERAL ORDE RABLES Final Result Performing Organization Address [facility] de Phone Number [facility] [address] [place] [address], [place] [phone] * (ABNORMAL) Sedimentation rate (05/30/2024 7:36 AM EDT) Sed Rate >130(H) 0 - 20 mm/hr LAB HEMETOLOGY METHOD 05/30/2024 8:[address] [facility] Blood Venous blood specimen / Unknown Venipuncture / Unknown 05/30/2024 7:36 AM EDT 05/30/2024 8:[address] [facility] - 05/30/2024 8:57 AM EDT Rechecked. us Laurence Florence MD LAB BLOOD ORDERABLES Final Resu lt Performing Organization Address [facility]/ZIP Co de Phone Number [facility] [address] [place] [address], [place] [phone] * (ABNORMAL) C-reactive protein (05/30/2024 7:36 AM EDT) [facility] C-Reactive Protein 11.60(H) <=0.50 mg/dL LAB CHEMISTRY METHOD 05/30/2024 8:[address] [facility] Blood Venous blood specimen / Unknown Venipuncture / Unknown 05/30/2024 7:36 AM EDT 05/30/2024 8:11 AM EDT us Laurence Florence MD LAB BLOOD ORDERABLES Final Resu lt Performing Organization Address [facility] Co de Phone Number [facility] [address] [place] [address], [place] [phone] * Lactate (05/30/2024 7:36 AM EDT) [facility] Lactate 0.6 0.4 - 2.0 mmol/L LAB CHEMISTRY METHOD 05/30/2024 8:[address] [facility] Blood Venous blood specimen / Unknown Venipuncture / Unknown 05/30/2024 7:36 AM EDT 05/30/2024 8:11 AM EDT us Laurence Florence MD LAB BLOOD ORDERABLES Final Resu lt Performing Organization Address [facility]/ZIP Co de Phone Number [facility] [address] [place] [address], [place] [phone] * (ABNORMAL) Comprehensive metabolic panel (05/30/2024 7:36 AM EDT) Only the most recent of2 resultswithin the time period is included. [facility] Sodium 140 133 - 145 mmol/L LAB CHEMISTRY METHOD 05/30/2024 9:08 AM [facility] Potassium 4.2 3.5 - 5.5 mmol/L LAB CHEMISTRY METHOD 05/30/2024 9:08 AM [facility] Chloride 104 96 - 110 mmol/L LAB CHEMISTRY METHOD 05/30/2024 9:08 AM [facility] CO2 28 21 - 32 mmol/L LAB CHEMISTRY METHOD 05/30/2024 9:08 AM [facility] Anion Gap 8 3 - 11 LAB CHEMISTRY METHOD 05/30/2024 9:08 AM [facility] Glucose 77 70 - 100 mg/dL LAB CHEMISTRY METHOD 05/30/2024 9:08 AM [facility] BUN 35(H) 5 - 25 mg/dL LAB CHEMISTRY METHOD 05/30/2024 9:08 AM [facility] Creatinine 5.30(H) 0.70 - 1.30 mg/dL LAB CHEMISTRY METHOD 05/30/2024 9:08 AM [facility] LAB eGFR 11(L) >=60 mL/min/1. 73m2 LAB CHEMISTRY METHOD 05/30/2024 9:08 AM [facility] LAB Comment:Calculation based on the??Chronic Kidney Disease Epidemiology Collaboration (CKD-EPI) equation refit??without adjustment for race. BUN/Creatinine Ratio 6.6 LAB CHEMISTRY METHOD 05/30/2024 9:08 AM [facility] Calcium 9.0 8.5 - 10.5 mg/dL LAB CHEMISTRY METHOD 05/30/2024 9:08 AM [facility] AST (SGOT) 10 10 - 42 unit/L LAB CHEMISTRY METHOD 05/30/2024 9:08 AM [facility] ALT (SGPT) 13 10 - 60 unit/L LAB CHEMISTRY METHOD 05/30/2024 9:[address] [facility] Alkaline Phosphatase 141(H) 42 - 121 unit/L LAB CHEMISTRY METHOD 05/30/2024 9:[address] [facility] Total Protein 6.3 6.0 - 8.0 g/dL LAB CHEMISTRY METHOD 05/30/2024 9:[address] [facility] Albumin 2.5(L) 3.2 - 5.0 g/dL LAB CHEMISTRY METHOD 05/30/2024 9:[address] [facility] Total Bilirubin 0.5 0.0 - 1.4 mg/dL LAB CHEMISTRY METHOD 05/30/2024 9:[address] [facility] Blood Venous blood specimen / Unknown Venipuncture / Unknown 05/30/2024 7:36 AM EDT 05/30/2024 8:11 AM EDT us Laurence Florence MD LAB BLOOD ORDERABLES Final Resu lt Performing Organization Address City/[facility]/ZIP Co de Phone Number [facility] [address] [place] [address], [place] [phone] * (ABNORMAL) Magnesium (05/29/2024 5:09 AM EDT) Magnesium 1.8(L) 1.9 - 2.6 mg/dL LAB CHEMISTRY METHOD 05/29/2024 9:[address] [facility] Blood Venous blood specimen / Unknown Venipuncture / Unknown 05/29/2024 5:09 AM EDT 05/29/2024 8:42 AM EDT us Laurence Florence MD LAB BLOOD ORDERABLES Final Resu lt [facility] [address] [place] [address], [place] [phone] * (ABNORMAL) Renal function panel (05/29/2024 5:09 AM EDT) Sodium 135 133 - 145 mmol/L LAB CHEMISTRY METHOD 05/29/2024 10:03 AM [facility] Potassium 4.7 3.5 - 5.5 mmol/L LAB CHEMISTRY METHOD 05/29/2024 10:03 AM [facility] Chloride 99 96 - 110 mmol/L LAB CHEMISTRY METHOD 05/29/2024 10:03 AM [facility] CO2 27 21 - 32 mmol/L LAB CHEMISTRY METHOD 05/29/2024 10:03 AM [facility] Anion Gap 9 3 - 11 LAB CHEMISTRY METHOD 05/29/2024 10:03 AM [facility] Glucose 22(LL) 70 - 100 mg/dL LAB CHEMISTRY METHOD 05/29/2024 10:03 AM [facility] BUN 60(H) 5 - 25 mg/dL LAB CHEMISTRY METHOD 05/29/2024 10:03 AM [facility] Creatinine 7.71(H) 0.70 - 1.30 mg/dL LAB CHEMISTRY METHOD 05/29/2024 10:03 AM [facility] eGFR 7(L) >=60 mL/min/1. 73m2 LAB CHEMISTRY METHOD 05/29/2024 10:03 AM [facility] LAB Comment:Calculation based on the??Chronic Kidney Disease Epidemiology Collaboration (CKD-EPI) equation refit??without adjustment for race. BUN/Creatinine Ratio 7.8 LAB CHEMISTRY METHOD 05/29/2024 10:03 AM [facility] Albumin 2.4(L) 3.2 - 5.0 g/dL LAB CHEMISTRY METHOD 05/29/2024 10:03 AM [facility] Calcium 8.7 8.5 - 10.5 mg/dL LAB CHEMISTRY METHOD 05/29/2024 10:03 AM [facility] Phosphorus 4.7(H) 2.5 - 4.5 mg/dL LAB CHEMISTRY METHOD 05/29/2024 10:[address] [facility] Blood Venous blood specimen / Unknown Venipuncture / Unknown 05/29/2024 5:09 AM EDT 05/29/2024 8:42 AM EDT us Laurence Florence MD LAB BLOOD ORDERABLES Final Resu lt Performing Organization Address [facility] Co de Phone Number [facility] [address] [place] [address], [place] [phone] * (ABNORMAL) Hemoglobin A1c (05/18/2024 7:20 AM EDT) Only the most recent of2 resultswithin the time period is included. Hemoglobin A1C 7.2(H) <6.5 % LAB CHEMISTRY METHOD 05/19/2024 12:[address] [facility] Mean Bld Glu Estim. 160 mg/dL LAB CHEMISTRY METHOD 05/19/2024 12:[address] [facility] Blood Venous blood specimen / Unknown Venipuncture / Unknown 05/18/2024 7:20 AM EDT 05/18/2024 9:58 AM EDT us Elsy MONTERO LAB BLOOD ORDERABLES Final Re sult Performing Organization Address [facility] Co de Phone Number 

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
--- OUTSIDE RECORDS SUMMARY | 2024-07-02 15:00 | XMS_ITS | Encounter Summary ---
Author Organization [facility] Address [address] [facility] [address] [place] [address] Phone Care Team Providers Care Ed Physicians Name Role Phone Jade Lewis MD Primary Care Provider [phone] Reason for Visit * Reason Onset Date Comments Med Refill 04/19/2022 Encounter Details Date Type Department Care Team (Late st Contact Info) Description 04/19/2022 Refill [facility] [address] [place] [phone] Loida Madsen Social History Tobacco Use Types [...] on filedocumented in this encounter Care Teams Ed Physicians Relationship Specialty Start Date End Date Jade Lewis MD [address] [place] [phone] PCP - General Internal Medicine 04/25/22 documented as of this encounter
--- OUTSIDE RECORDS SUMMARY | 2024-07-02 15:00 | XMS_ITS | Encounter Summary ---
Author Organization [facility] Address [address] [place] [address] Care Team Providers Care Network Development Coordinator Name Role Phone Cass Turcios MD Primary Care Provider [phone] Encounter Details Date Type Department Care Team (Late st Contact Info) Description 04/02/2024 Lab Requisition [facility] - Main Lab [address] [facility] [place] [address] Cass Turcios MD [address] [place] [address] End stage renal disease (CMS/HCC V24, CMS/HCC [...] your loved ones. For example, child care specialist or elderly care for an older [...] mmol/L LAB CHEMISTRY METHOD 04/02/2024 10:35 AM [facility] Potassium 5.6(H) 3.5 - 5.5 mmol/L LAB CHEMISTRY METHOD 04/02/2024 10:35 AM [facility] Chloride 95(L) 96 - 110 mmol/L LAB CHEMISTRY METHOD 04/02/2024 10:35 AM [facility] CO2 32 21 - 32 mmol/L LAB CHEMISTRY METHOD 04/02/2024 10:35 AM [facility] Anion Gap 8 3 - 11 LAB CHEMISTRY METHOD 04/02/2024 10:35 AM [facility] Glucose 32(LL) 70 - 100 mg/dL LAB CHEMISTRY METHOD 04/02/2024 10:35 AM [facility] BUN 50(H) 5 - 25 mg/dL LAB CHEMISTRY METHOD 04/02/2024 10:35 AM [facility] Creatinine 7.72(H) 0.70 - 1.30 mg/dL LAB CHEMISTRY METHOD 04/02/2024 10:35 AM [facility] eGFR 7(L) >=60 mL/min/1. 73m2 LAB CHEMISTRY METHOD 04/02/2024 10:35 AM [facility] Comment:Calculation based on the??Chronic Kidney Disease Epidemiology Collaboration (CKD-EPI) equation refit??without adjustment for race. BUN/Creatinine Ratio 6.5 LAB CHEMISTRY METHOD 04/02/2024 10:35 AM [facility] Calcium 8.3(L) 8.5 - 10.5 mg/dL LAB CHEMISTRY METHOD 04/02/2024 10:35 AM [facility] Blood Venous blood specimen / Unknown Venipuncture / Unknown 04/02/2024 5:24 AM EST 04/02/2024 8:48 AM EST us Cass Turcios MD LAB BLOOD ORDERABLES Final Resul t [facility] [address] [place] [address], * (ABNORMAL) Complete blood count (04/02/2024 5:24 AM EST) WBC 26.2(H) 4.8 - 10.8 K/mcL LAB HEMETOLOGY METHOD 04/02/2024 9:47 AM [facility] RBC 4.10(L) 4.50 - 5.50 M/mcL LAB HEMETOLOGY METHOD 04/02/2024 9:47 AM [facility] Hemoglobin 9.4(L) 13.5 - 17.5 g/dL LAB HEMETOLOGY METHOD 04/02/2024 9:47 AM [facility] Hematocrit 31.2(L) 42.0 - 54.0 % LAB HEMETOLOGY METHOD 04/02/2024 9:47 AM [facility] MCV 76.1(L) 79.0 - 98.0 FL LAB HEMETOLOGY METHOD 04/02/2024 9:47 AM [facility] MCH 22.9(L) 27.0 - 32.0 pcg LAB HEMETOLOGY METHOD 04/02/2024 9:47 AM [facility] MCHC 30.1(L) 32.0 - 37.0 g/dL LAB HEMETOLOGY METHOD 04/02/2024 9:47 AM [facility] RDW 17.1(H) 11.0 - 15.0 % LAB HEMETOLOGY METHOD 04/02/2024 9:47 AM [facility] Platelets 349 130 - 400 K/mcL LAB HEMETOLOGY METHOD 04/02/2024 9:47 AM [facility] MPV 11.4(H) 7.0 - 11.0 FL LAB HEMETOLOGY METHOD 04/02/2024 9:47 AM EST [facility] NRBC 0.0 <1.0 % LAB HEMETOLOGY METHOD 04/02/2024 9:47 AM EST [facility] NRBC Absolute 0.00 <0.10 K/mcL LAB HEMETOLOGY METHOD 04/02/2024 9:47 AM EST [facility] Blood Venous blood specimen / Unknown Venipuncture / Unknown 04/02/2024 5:24 AM EST 04/02/2024 8:48 AM EST Cass Turcios MD LAB BLOOD ORDERABLES Final Resul t [facility] [address] [place] [address], documented in this encounter Visit Diagnoses Diagnosis End stage renal disease (CMS/HCC V24, CMS/HCC V28) End stage renal disease documented in this encounter Care Teams Network Development Coordinator Relationship Specialty Start Date End Date Cass Turcios MD [address] [place] [address] [address] [place] [address] PCP - General Geriatric Medicine 04/02/24 documented as of this encounter
--- OUTSIDE RECORDS SUMMARY | 2024-07-02 15:00 | XMS_ITS | Encounter Summary ---
Author Organization [facility] Address [address] [place] [address] Phone Care Team Providers Care Dulser Name Role Phone Jade Lewis MD Primary Care Provider [phone] Reason for Visit * Reason Comments Med Refill Encounter Details Date Type Department Care Team (Late st Contact Info) Description 07/23/2021 Refill [facility] [address] [place] [phone] Alejandro Santana MD [address] [place] [phone] Social History Tobacco Use Types Packs/Day Years [...] on filedocumented in this encounter Care Teams Dulser Relationship Specialty Start Date End Date Jade Lewis MD [address] [place] [address] PCP - General Internal Medicine 04/25/22 documented as of this encounter
--- OUTSIDE RECORDS SUMMARY | 2024-07-02 15:00 | XMS_ITS | Encounter Summary ---
Author Organization [facility] Address [address] [place] [address] Phone Care Team Providers Care Agricultural Pilot Name Role Phone Jade Lewis MD Primary Care Provider [phone] Encounter Details Date Type Department Care Team (Late st Contact Info) Description 10/28/2019 Orders Only [facility] [address] [phone] [place] [address] [place] [phone] Social History Tobacco Use Types Packs/Day Years [...] on filedocumented in this encounter Care Teams Agricultural Pilot Relationship Specialty Start Date End Date Jade Lewis MD [address] [place] [address] PCP - General Internal Medicine 04/25/22 documented as of this encounter
--- OUTSIDE RECORDS SUMMARY | 2024-07-02 15:00 | XMS_ITS | Encounter Summary ---
Author Organization [facility], Address [address] [place] [address] Phone Care Team Providers Care Black Mill Operator Name Role Phone Jade Lewis MD Primary Care Provider [phone] Reason for Visit * Reason Comments Med Refill Encounter Details Date Type Department Care Team (Late st Contact Info) Description 10/27/2023 Refill [facility] [address] [place] [phone] Malcolm Taylor MD [address] [place] [address] [place] [phone] Social History Tobacco Use Types Packs/Day Years [...] on filedocumented in this encounter Care Teams Black Mill Operator Relationship Specialty Start Date End Date Jade Lewis MD [address] [place] [address] PCP - General Internal Medicine 04/25/22 documented as of this encounter
--- OUTSIDE RECORDS SUMMARY | 2024-07-02 15:00 | XMS_ITS | Encounter Summary ---
Author Organization [facility], Address [address] [place] [address] Phone Care Team Providers Care Soda Room Operator Name Role Phone Jade Lewis MD Primary Care Provider + [phone] Encounter Details Date Type Department Care Team (Late st Contact Info) Description 06/26/2024 Treatment [facility], [address] [place] [phone] Arely Hernández, DIAL MAKER [address] [place] [phone] End stage renal disease; Dependence on renal [...] Dialysis Note - Arely Hernández APRN - 06/26/2024 12:00 AM EDT Patient: BEAU MARIE, 1955, 69y, M Dialysis Location: [facility] [place] Attending Laboratory Miller: Car Mcdonald Service Date: 06/26/2024 Service Provider: Arely Hernández NP I met face to face with the patient today. 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, right lower leg, subsequent encounter I31.39 Other pericardial effusion (noninflammatory) I31.4 Cardiac tamponade Admission Date 05/01/24 Discharge Date 05/15/24 DIALYSIS PRESCRIPTION IHD 3x Week Start date: 06/21/24 Dialyzer: 180NRe Optiflux BFR: 450 DFR: Manual 800 Potassium: 2.0 Sodium: 138 EDW: 60 Duration: 3:30 Calcium: 2.50 Bicarb: 38 Rx updated on: 06/21/2024 TREATMENT ASSESSMENT BP Sit Pre 06/24/2024: 229/165 06/21/2024: 219/102 06/19/2024: 219/104 BP Sit Post 06/24/2024: 137/116 06/21/2024: 174/90 06/19/2024: 152/84 Tx Duration 06/24/2024: 3:32 06/21/2024: 3:31 06/19/2024: 3:26 Missed Treatments 0 - last 30 days 0 - last 60 days FLUID ASSESSMENT EDW (kg) 06/24/2024: 60.0 06/21/2024: 61.5 06/19/2024: 61.5 Weight Pre (kg) 06/24/2024: 65.3 06/21/2024: 64.0 06/19/2024: 64.4 Weight Post (kg) 06/24/2024: 60.5 06/21/2024: 60.2 06/19/2024: 61.7 PWV (kg) 06/24/2024: 0.5 06/21/2024: -1.3 06/19/2024: 0.2 UF Rate (mL/kg/hr) 06/24/2024: 22.5 06/21/2024: 17.9 06/19/2024: 12.7 ADEQUACY ASSESSMENT spKt/V, URR 06/17/2024: 1.87, 79.0 05/01/2024: 1.1, 59.0 2024: 1.12, 64.0 ACCESS ASSESSMENT Access Type: CVCatheter Access SubType: Tunneled Access Status: Active (In Use) - 08/09/2023 Access Location: Neck Placed: 08/08/2023 ANEMIA ASSESSMENT HGB, TSAT 06/19/2024: 9.3, - 06/17/2024: 8.8, 35.0 05/01/2024: 9.1, - Ferritin 06/17/2024: 1096.0 04/19/2024: 1172.0 03/08/2024: 1289.0 Mircera, IVP (mcg) 06/19/2024: 150 05/01/2024: 100 04/19/2024: 75 Iron Sucrose (Venofer) (mg) 06/21/2024: 50 05/01/2024: 100 04/29/2024: 100 BMM ASSESSMENT PTH, Intact 06/17/2024: 584.0 04/19/2024: 773.0 03/08/2024: 826.0 Calcium, Phosphorus 06/17/2024: 8.4, 6.2 04/19/2024: 7.7, 7.9 03/08/2024: 9.0, 5.9 Vitamin D (Calcitriol) Oral (mcg) 06/24/2024: 1.50 06/21/2024: 1.50 06/19/2024: 1.50 Cinacalcet (Sensipar) (mg) 06/24/2024: 60 06/21/2024: 60 06/19/2024: 60 NUTRITION ASSESSMENT Potassium, Albumin 06/17/2024: 5.6, 3.5 04/19/2024: 4.9, 3.1 03/08/2024: 5.1, 3.7 eNPCR 05/01/2024: 1.07 2024: 1.05 04/22/2024: 1.12 DIAGNOSIS Chief Complaint: N18.6 End stage renal disease Comments: Patient seen and examined. VSS with no complaints to offer. S1, S2, RRR. LS CTA bilaterally. Access patent. Patient is stable. Patient data updated 06/26/2024 at 7:56 AM Signed By: Arely Hernández NP on 06/26/2024 7:56:20 AM documented in this encounter Plan of Treatment Not on file documented as of this encounter Visit Diagnoses Diagnosis End stage renal disease Dependence on renal dialysis documented in this encounter Care Teams Soda Room Operator Relationship Specialty Start Date End Date Jade Lewis MD [address] [place], [place] [id number] PCP - General Internal Medicine 04/25/22 documented as of this encounter
--- OUTSIDE RECORDS SUMMARY | 2024-07-02 15:00 | XMS_ITS | Encounter Summary ---
Author Organization [facility] Address [address] [place] [address] Care Team Providers Care Putty Tinter Maker Name Role Phone Cass Turcios MD Primary Care Provider [phone] Encounter Details Date Type Department Care Team (Late st Contact Info) Description 06/06/2024 Lab Requisition [facility] - Main Lab [address] [facility] [place] [address] Laurence Florence MD [address] [place] [address] Cellulitis of right lower limb; End stage [...] mmol/L LAB CHEMISTRY METHOD 06/06/2024 8:59 AM [facility] Potassium 4.3 3.5 - 5.5 mmol/L LAB CHEMISTRY METHOD 06/06/2024 8:59 AM [facility] Chloride 106 96 - 110 mmol/L LAB CHEMISTRY METHOD 06/06/2024 8:59 AM [facility] CO2 27 21 - 32 mmol/L LAB CHEMISTRY METHOD 06/06/2024 8:59 AM [facility] Anion Gap 6 3 - 11 LAB CHEMISTRY METHOD 06/06/2024 8:59 AM [facility] Glucose 162(H) 70 - 100 mg/dL LAB CHEMISTRY METHOD 06/06/2024 8:59 AM [facility] BUN 28(H) 5 - 25 mg/dL LAB CHEMISTRY METHOD 06/06/2024 8:59 AM [facility] Creatinine 3.78(H) 0.70 - 1.30 mg/dL LAB CHEMISTRY METHOD 06/06/2024 8:59 AM [facility] eGFR 17(L) >=60 mL/min/1. 73m2 LAB CHEMISTRY METHOD 06/06/2024 8:59 AM [facility] Comment:Calculation based on the??Chronic Kidney Disease Epidemiology Collaboration (CKD-EPI) equation refit??without adjustment for race. BUN/Creatinine Ratio 7.4 LAB CHEMISTRY METHOD 06/06/2024 8:59 AM [facility] Calcium 9.1 8.5 - 10.5 mg/dL LAB CHEMISTRY METHOD 06/06/2024 8:59 AM [facility] Blood Venous blood specimen / Unknown Venipuncture / Unknown 06/06/2024 5:35 AM EDT 06/06/2024 8:10 AM EDT us Laurence Florence MD LAB BLOOD ORDERABLES Final Resu lt [facility] [address] [place] [address], [place] [phone] * (ABNORMAL) Complete blood count (06/06/2024 5:35 AM EDT) [facility] WBC 9.3 4.8 - 10.8 K/mcL LAB HEMETOLOGY METHOD 06/06/2024 8:35 AM EDT [facility] RBC 3.20(L) 4.50 - 5.50 M/mcL LAB HEMETOLOGY METHOD 06/06/2024 8:35 AM EDT [facility] Hemoglobin 7.6(L) 13.5 - 17.5 g/dL LAB HEMETOLOGY METHOD 06/06/2024 8:35 AM EDT [facility] Hematocrit 26.2(L) 42.0 - 54.0 % LAB HEMETOLOGY METHOD 06/06/2024 8:35 AM EDT [facility] MCV 80.9 79.0 - 98.0 FL LAB HEMETOLOGY METHOD 06/06/2024 8:35 AM EDT [facility] MCH 23.5(L) 27.0 - 32.0 pcg LAB HEMETOLOGY METHOD 06/06/2024 8:35 AM EDT [facility] MCHC 29.0(L) 32.0 - 37.0 g/dL LAB HEMETOLOGY METHOD 06/06/2024 8:35 AM EDT [facility] RDW 16.8(H) 11.0 - 15.0 % LAB HEMETOLOGY METHOD 06/06/2024 8:35 AM EDT [facility] Platelets 264 130 - 400 K/mcL LAB HEMETOLOGY METHOD 06/06/2024 8:35 AM EDT [facility] MPV 12.3(H) 7.0 - 11.0 FL LAB HEMETOLOGY METHOD 06/06/2024 8:35 AM EDT [facility] NRBC 0.0 <1.0 % LAB HEMETOLOGY METHOD 06/06/2024 8:35 AM EDT [facility] NRBC Absolute 0.00 <0.10 K/mcL LAB HEMETOLOGY METHOD 06/06/2024 8:35 AM EDT [facility] Blood Venous blood specimen / Unknown Venipuncture / Unknown 06/06/2024 5:35 AM EDT 06/06/2024 8:10 AM EDT us Laurence Florence MD LAB BLOOD ORDERABLES Final Resu lt [facility] [address] [place] [address], [place] [phone] documented in this encounter Visit Diagnoses Diagnosis Cellulitis of right lower limb End stage renal disease (CMS/HCC V24, CMS/HCC V28) End stage renal disease documented in this encounter Care Teams Putty Tinter Maker Relationship Specialty Start Date End Date Cass Turcios MD [address] [place] [address] [address] [place] [address] PCP - General Geriatric Medicine 04/02/24 documented as of this encounter
--- OUTSIDE RECORDS SUMMARY | 2024-07-02 15:00 | XMS_ITS | Encounter Summary ---
Author Organization [facility], Address [address] [place] [address] Phone Care Team Providers Care Door Frame Assembler Machine Name Role Phone Jade Lewis MD Primary Care Provider + [phone] Reason for Visit * Reason Comments Med Refill Encounter Details Date Type Department Care Team ([facility] st Contact Info) Description 06/25/2019 Refill [facility] [address] [place] [address] Mercedes Law MD Social History [...] on filedocumented in this encounter Care Teams Door Frame Assembler Machine Relationship Specialty Start Date End Date Jade Lewis MD [address] [place], [place] [phone] PCP - General Internal Medicine 04/25/22 documented as of this encounter
--- OUTSIDE RECORDS SUMMARY | 2024-07-02 15:00 | XMS_ITS | Encounter Summary ---
Author Organization [facility] Address [address] [place] [address] Care Team Providers Care Android Architect Name Role Phone Cass Turcios MD Primary Care Provider [phone] Encounter Details Date Type Department Care Team (Late st Contact Info) Description 03/25/2024 Lab Requisition [facility] - Main Lab [address] [facility] [place] [address] Cass Turcios MD [address] [place] [address] Anemia, unspecified; Chronic diastolic (congestive) heart failure [...] loved ones. For example, child and family counselor or elderly care for an older [...] mmol/L LAB CHEMISTRY METHOD 03/25/2024 2:44 PM [facility] Potassium 7.3(HH) 3.5 - 5.5 mmol/L LAB CHEMISTRY METHOD 03/25/2024 2:44 PM [facility] Chloride 101 96 - 110 mmol/L LAB CHEMISTRY METHOD 03/25/2024 2:44 PM [facility] CO2 15(L) 21 - 32 mmol/L LAB CHEMISTRY METHOD 03/25/2024 2:44 PM [facility] Anion Gap 17(H) 3 - 11 LAB CHEMISTRY METHOD 03/25/2024 2:44 PM [facility] Glucose 62(L) 70 - 100 mg/dL LAB CHEMISTRY METHOD 03/25/2024 2:44 PM [facility] BUN 112(H) 5 - 25 mg/dL LAB CHEMISTRY METHOD 03/25/2024 2:44 PM [facility] Creatinine 12.80(HH) 0.70 - 1.30 mg/dL LAB CHEMISTRY METHOD 03/25/2024 2:44 PM [facility] eGFR 4(L) >=60 mL/min/1 .73m2 LAB CHEMISTRY METHOD 03/25/2024 2:44 PM [facility] Comment:Calculation based on the??Chronic Kidney Disease Epidemiology Collaboration (CKD-EPI) equation refit??without adjustment for race. BUN/Creatinine Ratio 8.8 LAB CHEMISTRY METHOD 03/25/2024 2:44 PM [facility] Calcium 8.8 8.5 - 10.5 mg/dL LAB CHEMISTRY METHOD 03/25/2024 2:44 PM EST [facility] AST (SGOT) 21 10 - 42 unit/L LAB CHEMISTRY METHOD 03/25/2024 2:44 PM [facility] ALT (SGPT) 9(L) 10 - 60 unit/L LAB CHEMISTRY METHOD 03/25/2024 2:44 PM [facility] Alkaline Phosphatase 172(H) 42 - 121 unit/L LAB CHEMISTRY METHOD 03/25/2024 2:44 PM [facility] Total Protein 6.9 6.0 - 8.0 g/dL LAB CHEMISTRY METHOD 03/25/2024 2:44 PM [facility] Albumin 2.7(L) 3.2 - 5.0 g/dL LAB CHEMISTRY METHOD 03/25/2024 2:44 PM [facility] Total Bilirubin 0.4 0.0 - 1.4 mg/dL LAB CHEMISTRY METHOD 03/25/2024 2:44 PM [facility] Blood Venous blood specimen / Unknown Venipuncture / Unknown 03/25/2024 5:09 AM EST 03/25/2024 11:52 AM EST us Cass Turcios MD LAB BLOOD ORDERABLES Final Resul t [facility] [address] [place] [address], * (ABNORMAL) Complete blood count (03/25/2024 5:09 AM EST) WBC 14.1(H) 4.8 - 10.8 K/mcL LAB HEMETOLOGY METHOD 03/25/2024 2:27 PM EST [facility] RBC 4.60 4.50 - 5.50 M/mcL LAB HEMETOLOGY METHOD 03/25/2024 2:27 PM [facility] Hemoglobin 10.5(L) 13.5 - 17.5 g/dL LAB HEMETOLOGY METHOD 03/25/2024 2:27 PM [facility] Hematocrit 35.9(L) 42.0 - 54.0 % LAB HEMETOLOGY METHOD 03/25/2024 2:27 PM [facility] MCV 77.7(L) 79.0 - 98.0 FL LAB HEMETOLOGY METHOD 03/25/2024 2:27 PM [facility] MCH 22.7(L) 27.0 - 32.0 pcg LAB HEMETOLOGY METHOD 03/25/2024 2:27 PM [facility] MCHC 29.2(L) 32.0 - 37.0 g/dL LAB HEMETOLOGY METHOD 03/25/2024 2:27 PM [facility] RDW 17.5(H) 11.0 - 15.0 % LAB HEMETOLOGY METHOD 03/25/2024 2:27 PM [facility] Platelets 254 130 - 400 K/mcL LAB HEMETOLOGY METHOD 03/25/2024 2:27 PM [facility] MPV LAB HEMETOLOGY METHOD 03/25/2024 2:27 PM [facility] Comment:Not Measured NRBC 0.0 <1.0 % LAB HEMETOLOGY METHOD 03/25/2024 2:27 PM [facility] NRBC Absolute 0.00 <0.10 K/mcL LAB HEMETOLOGY METHOD 03/25/2024 2:27 PM [facility] Blood Venous blood specimen / Unknown Venipuncture / Unknown 03/25/2024 5:09 AM EST 03/25/2024 11:52 AM EST Cass Turcios MD LAB BLOOD ORDERABLES Final Resul t [facility] LAB [address] [place] [address], documented in this encounter Visit Diagnoses Diagnosis Anemia, unspecified Chronic diastolic (congestive) heart failure ([facility] V24, [facility] V28) Other pericardial effusion (noninflammatory) End stage renal disease ([facility] V24, [facility] V28) End stage renal disease documented in this encounter Additional Health Concerns Infection Onset Date Last Indicated Resolved Time Respiratory Rule-Out 03/25/2024 03/25/2024 025 8:14 PM EST documented as of this encounter Care Teams Android Architect Relationship Specialty Start Date End Date Cass Turcios MD [address] [facility] [address] [place] [address] PCP - General Geriatric Medicine 04/02/24 documented as of this encounter
--- OUTSIDE RECORDS SUMMARY | 2024-07-02 15:00 | XMS_ITS | Encounter Summary ---
Author Organization [facility], Address [address] [place] [address] Phone Care Team Providers Care Studio Operations Manager Name Role Phone Jade Lewis MD Primary Care Provider + [phone] Reason for Visit * Reason Comments Med Refill Encounter Details Date Type Department Care Team (Late st Contact Info) Description 12/24/2022 Refill [facility] [address] [place] [phone] Car Mcdonald MD [facility] [address] [place] [address] Social History Tobacco Use Types Packs/Day Years [...] on filedocumented in this encounter Care Teams Studio Operations Manager Relationship Specialty Start Date End Date Jade Lewis MD [address] [place] [address] PCP - General Internal Medicine 04/25/22 documented as of this encounter
--- OUTSIDE RECORDS SUMMARY | 2024-07-02 15:00 | XMS_ITS | Encounter Summary ---
Author Organization [facility] Address [address] [place] [address] Care Team Providers Care Mandarin Tutor Name Role Phone Cass Turcios MD Primary Care Provider [phone] Encounter Details Date Type Department Care Team (Latest Contact Info) Description 05/28/2024 Lab Requisition [facility] - Main Lab [address] [facility] [place] [address] Laurence Florence MD [address] [place] [address] Anemia, unspecified; End stage renal disease (CMS/HCC [...] (ABNORMAL) Magnesium (05/29/2024 5:09 AM EDT) Pathologist [facility] Magnesium 1.8(L) 1.9 - 2.6 mg/dL LAB CHEMISTRY METHOD 05/29/2024 9:20 AM EDT [facility] Blood Venous blood specimen / Unknown Venipuncture / Unknown 05/29/2024 5:09 AM EDT 05/29/2024 8:42 AM EDT us Laurence Florence MD LAB BLOOD ORDERABLES Final Resu lt [facility] [address] [place] [address], * (ABNORMAL) Complete blood count (05/29/2024 5:09 AM EDT) [facility] WBC 10.8 4.8 - 10.8 K/mcL LAB HEMETOLOGY METHOD 05/29/2024 9:01 AM EDT [facility] RBC 3.50(L) 4.50 - 5.50 M/mcL LAB HEMETOLOGY METHOD 05/29/2024 9:01 AM EDT [facility] Hemoglobin 8.2(L) 13.5 - 17.5 g/dL LAB HEMETOLOGY METHOD 05/29/2024 9:01 AM EDT [facility] Hematocrit 28.4(L) 42.0 - 54.0 % LAB HEMETOLOGY METHOD 05/29/2024 9:01 AM EDT [facility] MCV 81.8 79.0 - 98.0 FL LAB [facility]EMETOLOGY [facility] MCH 23.6(L) 27.0 - 32.0 pcg LAB HEMETOLOGY METHOD 05/29/2024 9:01 AM [facility] MCHC 28.9(L) 32.0 - 37.0 [...] Resu lt [facility] [address] [place] [address], * (ABNORMAL) Renal function panel (05/29/2024 5:09 AM EDT) Sodium 135 133 - 145 mmol/L LAB CHEMISTRY METHOD 05/29/2024 10:03 AM T [facility] Potassium 4.7 3.5 - [...] LAB BLOOD ORDERABLES Final Resu lt [facility] [address] [place] [address], documented in this encounter Visit Diagnoses Diagnosis Anemia, unspecified End stage renal disease (CMS/HCC V24, CMS/HCC V28) End stage renal disease Unspecified asthma, uncomplicated documented in this encounter Care Teams Mandarin Tutor Relationship Specialty Start Date End Date Cass Turcios MD [address] [facility] [address] [place] [address] PCP - General Geriatric Medicine 04/02/24 documented as of this encounter
--- OUTSIDE RECORDS SUMMARY | 2024-07-02 15:00 | XMS_ITS | Encounter Summary ---
Author Organization [facility], Address [address] [place] [address] Phone Care Team Providers Care Region Manager Name Role Phone Jade Lewis MD Primary Care Provider + [phone] Reason for Visit * Reason Comments Med Refill Encounter Details Date Type Department Care Team (Late st Contact Info) Description 06/13/2023 Refill [facility] [address] [place] [phone] Malcolm Taylor MD [address] [place] [phone] Social History Tobacco Use Types Packs/Day Years [...] on filedocumented in this encounter Care Teams Region Manager Relationship Specialty Start Date End Date Jade Lewis MD [address] [place] [address] PCP - General Internal Medicine 04/25/22 documented as of this encounter
--- OUTSIDE RECORDS SUMMARY | 2024-07-02 15:00 | XMS_ITS | Clinical Summary ---
Author Organization [facility]. Address [address] [facility] [address] [place] [address] Phone Care Team Providers Care Strand And Binder Controller Name Role Phone Jade Lewis MD Primary Care Provider + [phone] Allergies Active Allergy Reactions Criticality Noted Date [...] FOR WHEEZING 1 Active ergocalciferol 1.25 MG (00153 UT) capsule Take 1 capsule (50,000 Units total) by mouth 1 (one) time per week 4 capsule 5 1 Active cetirizine (ZyrTEC) 10 MG tablet Take 10 mg by mouth 1 (one) time each day Active Fluticasone-Salm eterol 100-50 MCG/ACT aerosol powder [facility] [place], [place] - [id number] [place] [phone] 60.00 Each 5 30 INHALE 1 PUFF [...] mouth daily. Prescribed by Dr. Car Mcdonald (filler block inserter remover). 2 Active aspirin (ST ANITRA) 81 MG [...] asthma 03/31/2022 Overview (09/15/2022): 08/19/21 Eval at [facility]. Increase Advair to 100/50 F/u 6 months. 05/24/22 Eval at [facility], Dr Funez. Recommends Trelegy once daily. Plan for sleep study to assess need for CPAP. 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 Permacath for dialysis removed and a new one replaced. Will get cefazolin x 4 weeks after dialysis. Lantus decreased to 30 units. Pt to continue on Eliquis for the next few weeks until his AV fistula is ready for utilization. Abdominal pain 03/19/2021 Bacteremia 03/19/2021 Venous thrombosis 01/04/2021 Overview (01/26/2021): 12/13/20-12/19/20 Admitted to [facility] for non-occulsive thrombosis in R internal jugular vein. Acute embolism and thrombosis of left internal j ugular vein 12/21/2020 End stage renal failure on dialysis 11/19/2020 Overview (10/05/2021): [facility] Hypocalcemia 11/13/2020 Angina pectoris 11/09/2020 Coagulation defect 11/09/2020 Headache 11/09/2020 Type 2 diabetes mellitus with diabetic nephropat hy 11/09/2020 Edema 09/28/2020 Iron deficiency anemia 12/24/2019 Chronic kidney disease stage 4 02/19/2019 Anemia in chronic kidney disease 02/19/2019 History of colonoscopy 03/30/2016 Overview (01/26/2021): Approximately 2010 in [place] per Pt 11/24/20 Eval at [facility], recommend colonoscopy. Resolved Problems Problem [...] diabetes mellitus 06/12/2015 Overview (01/26/2021): Followed by [facility]. Last visit 06/23/15, HbA1c = 11.1%. Has diabetic nephropathy, retinopathy, and peripheral neuropathy. Switched to Novolin 70/30. Taking 23 units TID with meals, may titrate up/down depending on BG readings over the next few days. They are trying to submit PA for Lyrica. 04/27/16 F/u with Estefani Kaur, DO at [facility]. Titrate Novolog 70/30 to 22 units with breakfast, 30 units with dinner. If no improvement or if ongoing hypoglycemia will consider switchign to Levemir and Humalog; F/u 3 months 11/03/20 F/u [facility]. A1c > 12% Continue Lanuts 52 and Humalog 4-8 untsi with meals. Consider using NPH during peritoneal dialysis Encounters Date Type Department Care Team Description 06/26/2024 Orders Only [facility] [address] [address] Car Mcdonlad MD 06/26/2024 Treatment [facility], [address] [place] [address] Arely Hernández APRN End stage renal disease; Dependence on renal dialysis 06/19/2024 Orders Only [facility] [address] [address] Car Mcdonald MD 06/17/2024 Orders Only [facility] [address] [address] Car Mcdonald MD 06/12/2024 Treatment [facility] [place], [address] [place] [address] Donny Griggs MD End stage renal disease; Dependence on renal dialysis 05/01/2024 Orders Only [facility] [address] [address] Car Mcdonald MD 2024 Orders Only [facility] [address] [address] Car Mcdonald MD 2024 Treatment [facility] [place], [address] [place] [address] Arely Hernández DECK MOLDER 04/24/2024 Treatment [facility] [place], [address] [place] [address] Malcolm Taylor MD End stage renal disease; Dependence on renal dialysis 04/24/2024 Orders Only [facility] [address] [address] Car Mcdonald MD 04/22/2024 Orders Only [facility] [address] [address] Car Mcdonald MD 04/19/2024 Orders Only [facility] [address] [address] Car Mcdonald MD 04/19/2024 Treatment [facility] [place], [address] [place] [address] Arely Hernández DECK MOLDER 04/05/2024 Treatment [facility] [place], [address] [place] [address] Arely Hernández, DECK MOLDER 04/03/2024 Orders Only [facility] [address] [address] Car Mcdonald MD from Last 3 Months [...] at 66 Diabetes Mother Heart disease Mother VA Stroke Mother grandfather Hypertension Sibling 1 Kidney [...] Foot Exam 02/18/2019 Diabetes: Hemoglobin A1C 09/16/2024 025, 03/08/2024, 12/08/2023, Additional history exists Pneumococcal [...] Date/Time Associated Diagnosis Comments HEMATOLOGY Routine 06/26/2024 HEMATOLOGY Routine 06/19/2024 SPECIAL CHEMISTRY Routine 06/17/2024 HD KINETICS Routine [...] 04/19/2024 HEMATOLOGY Routine 04/19/2024 HEMATOLOGY Routine 04/03/2024 from Last 3 Months Results * (ABNORMAL) HEMATOLOGY (06/26/2024) Only the most recent of7 resultswithin the time period is included. Hemoglobin 9.9(L) 14.0 - 18.0 g/dL [facility] Hemoglobin x 3 29.7(L) 42.0 - 54.0 % [facility] 06/26/2024 06/27/2024 8:1 1 AM EDT Narrative [facility] - 06/27/2024 Unless otherwise specified, test(s) performed at: [facility], [address] [place] [id number] STEEL ERECTOR APPRENTICE: Homero Garcia M.D. For any questions, please call customer service at FREQUENCY:OTHER Resulting Agency Comment Specimen source: Blood Car Mcdonald MD LAB BLOOD ORDERABLES Final Re sult Performing Organization Address [facility] [[email or web address]] Co de Phone Number [facility] See order comments or contact performing lab Unknown, [place] * HD KINETICS (06/17/2024) Only the most recent of4 resultswithin the time period is included. % Urea Reduction 79 65 - 80 % [facility] 06/17/2024 06/18/2024 8:2 7 AM EDT Narrative Resulting Agency Comment Specimen source: Plasma Car Mcdonald MD LAB BLOOD ORDERABLES Final Re sult Performing Organization Address [facility] de Phone Number [facility] See order comments or contact performing lab Unknown, [place] * (ABNORMAL) SPECIAL CHEMISTRY (06/17/2024) Hemoglobin A1C 6.9(H) 4.8 - 5.9 % [facility] 06/17/2024 06/18/2024 8:4 3 AM EDT Narrative [facility] - 06/18/2024 Unless otherwise specified, test(s) performed at: [facility], [address] [place] [id number] STEEL ERECTOR APPRENTICE: Homero aGrcia M.D. For any questions, please call customer service at FREQUENCY:MONTHLY Resulting Agency Comment Specimen source: Blood Car Mcdonald MD LAB BLOOD BANK TEST ORDERABLE S Final Result Performing Organization Address [facility] de Phone Number [facility] See order comments or contact performing lab Unknown, [place] * POST CHEMISTRY (06/17/2024) Only the most recent of4 resultswithin the time period is included. BUN Post Dialysis 19 6 - 19 mg/dL [facility] 06/17/2024 06/18/2024 8:2 7 AM EDT Narrative [facility] - 06/18/2024 Unless otherwise specified, test(s) performed at: [facility], [address] [place], [place] [id number] STEEL ERECTOR APPRENTICE: Homero Garcia M.D. For any questions, please call customer service at FREQUENCY:MONTHLY Resulting Agency Comment Specimen source: Plasma Car Mcdonald MD LAB BLOOD ORDERABLES Final Re sult Performing Organization Address [facility] de Phone Number CAL [facility] [employer] [facility] [facility] See order comments or contact performing lab Unknown, [place] * IMMUNO CHEMISTRY (06/17/2024) Only the most recent of2 resultswithin the time period is included. Hep B Surface Ag Negative Negative [facility] 06/17/2024 06/18/2024 8:4 0 AM EDT Narrative Resulting Agency Comment Specimen source: Serum Car Mcdonald MD LAB BLOOD ORDERABLES Final Re sult Performing Organization Address [facility] de Phone Number [facility] See order comments or contact performing lab Unknown, [place] * (ABNORMAL) [facility] (06/17/2024) Only the most recent of7 resultswithin the time period is included. PTH 584(H) 16 - 80 pg/mL [facility] 06/17/2024 06/18/2024 8:3 9 AM EDT Narrative [facility] - 06/18/2024 Unless otherwise specified, test(s) performed at: [facility], [address] [place], [place] [phone] STEEL ERECTOR APPRENTICE: Homero Garcia M.D. For any questions, please call customer service at FREQUENCY:MONTHLY Resulting Agency Comment Specimen source: Plasma Car Mcdonald MD LAB BLOOD ORDERABLES Final Re sult Performing Organization Address [facility]/ZIP Co de Phone Number [facility] See order comments or contact performing lab Unknown, [place] * [facility] Results (05/01/2024) Only the most recent of3 resultswithin the time period is included. eKt/V ([place]all) 0.87 [facility] eKdrt/V 0.85 [facility] eNPCR 1.07 [facility] spKt/V Gotch 1.12 [facility] PCR 74.63 [facility] nPCR_HD 1.23 [facility] eKt/V Gotch 0.85 Knowledg e Center spKt/V (Daugirdas II) 1.10 [facility] WSTDKT/V 2.0 [facility] 05/01/2024 05/01/2024 [facility] Ordering Provider LAB BLOOD ORDERABLES Final Result [facility] Contact Performing lab Unknown, [place] from Last 3 Months Insurance [place] Medicaid [place] [facility] Medicare Medicaid [place] Care Teams Strand And Binder Controller Relationship Specialty Start Date End Date Jade Lewis MD [address] [place] [address] PCP - General Internal Medicine 04/25/22
--- OUTSIDE RECORDS SUMMARY | 2024-07-02 15:00 | XMS_ITS | Clinical Summary ---
Author Organization [facility] [employer] Address [address] [place] [address] 7 [place] [address] Care Team Providers Care Rocket Propellant Plant Supervisor Name Role Phone Unavailable Primary Care Provider [...]
--- OUTSIDE RECORDS SUMMARY | 2024-07-02 15:00 | XMS_ITS | Encounter Summary ---
Author Organization [facility], Address [address] [place] [address] Phone Care Team Providers Care Chop Saw Operator Name Role Phone Jade Lewis MD Primary Care Provider + [phone] Reason for Visit * Reason Comments Med Refill Encounter Details Date Type Department Care Team (Late st Contact Info) Description 04/27/2019 Refill [facility] [address] [place] [address] Mercedes Law MD Social History [...] on filedocumented in this encounter Care Teams Chop Saw Operator Relationship Specialty Start Date End Date Jade Lewis MD [address] [place], [place] [phone] PCP - General Internal Medicine 04/25/22 documented as of this encounter
--- OUTSIDE RECORDS SUMMARY | 2024-07-02 15:00 | XMS_ITS | Encounter Summary ---
Author Organization [facility], Address [address] [place] [address] Phone Care Team Providers Care Police Captain Name Role Phone Jade Lewis MD Primary Care Provider [phone] Reason for Visit * Reason Comments Med Refill Encounter Details Date Type Department Care Team (Late st Contact Info) Description 05/22/2023 Refill [facility] [address] [place] [phone] Car Mcdonald MD [facility] [place] [place] [address] Social History Tobacco Use Types Packs/Day Years [...] on filedocumented in this encounter Care Teams Police Captain Relationship Specialty Start Date End Date Jade Lewis MD [address] [place] [id number] PCP - General Internal Medicine 04/25/22 documented as of this encounter
--- OUTSIDE RECORDS SUMMARY | 2024-07-02 15:00 | XMS_ITS | Encounter Summary ---
Author Organization [facility], Address [address] [place] [address] Phone Care Team Providers Care Incident Engineer Name Role Phone Jade Lewis MD Primary Care Provider + [phone] Reason for Visit * Reason Comments Med Refill Encounter Details Date Type Department Care Team ([facility] st Contact Info) Description 10/18/2023 Refill [facility] [address] [place] [phone] Malcolm Taylor MD [address] [place] [address] [place] [phone] Social History Tobacco Use Types Packs/Day Years [...] 10/19/2023 Unless otherwise specified, test(s) performed at: [facility], [address] [place] [address] FRIED CAKE MAKER: Homero Garcia M.D. For any questions, please call customer service at FREQUENCY:OTHER Resulting Agency Comment Specimen source: Blood us Car Mcdonald MD LAB BLOOD ORDERABLES Final Re sult [facility] See order comments or contact performing lab Unknown, [place] documented in this encounter Visit Diagnoses Not on filedocumented in this encounter Care Teams Incident Engineer Relationship Specialty Start Date End Date Jade Lewis MD [address] [place] [address] PCP - General Internal Medicine 04/25/22 documented as of this encounter
--- OUTSIDE RECORDS SUMMARY | 2024-07-02 15:01 | XMS_ITS | Encounter Summary ---
Author Organization [facility] Address [address] [place] [address] Care Team Providers Care Claims Adjustor Name Role Phone Cass Turcios MD Primary Care Provider [phone] Encounter Details Date Type Department Care Team (Latest Contact Info) Description 05/17/2024 Lab Requisition [facility] - Main Lab [address] [facility] [place] [address] Laurence Florence MD [address] [place] [id number] Type 2 diabetes mellitus without complications (CMS/HCC [...] EDT Type 2 diabetes mellitus without complications ([facility]/HCC) End stage renal disease ([facility]) HEMOGLOBIN A1C Routine 05/17/2024 5:37 AM EDT Type 2 diabetes mellitus without complications (CMS/HCC) End stage renal disease ([facility]/HCC) BASIC METABOLIC PANEL Routine 05/17/2024 5:37 AM EDT Type 2 diabetes mellitus without complications ([facility]/HCC) End stage renal disease ([facility]/HCC) documented in this encounter Results * (ABNORMAL) Basic metabolic panel (05/17/2024 5:37 AM EDT) Sodium 135 133 - 145 mmol/L LAB CHEMISTRY METHOD 05/17/2024 11:32 AM [facility] Potassium 5.5 3.5 - 5.5 mmol/L LAB CHEMISTRY METHOD 05/17/2024 11:32 AM [facility] Chloride 95(L) 96 - 110 mmol/L LAB CHEMISTRY METHOD 05/17/2024 11:32 AM [facility] CO2 29 21 - 32 mmol/L LAB CHEMISTRY METHOD 05/17/2024 11:32 AM [facility] Anion Gap 11 3 - 11 LAB CHEMISTRY METHOD 05/17/2024 11:32 AM [facility] Glucose 173(H) 70 - 100 mg/dL LAB CHEMISTRY METHOD 05/17/2024 11:32 AM [facility] BUN 52(H) 5 - 25 mg/dL LAB CHEMISTRY METHOD 05/17/2024 11:32 AM [facility] Creatinine 7.48(H) 0.70 - 1.30 mg/dL LAB CHEMISTRY METHOD 05/17/2024 11:32 AM [facility] eGFR 7(L) >=60 mL/min/1. 73m2 LAB CHEMISTRY METHOD 05/17/2024 11:32 AM [facility] Comment:Calculation based on the??Chronic Kidney Disease Epidemiology Collaboration (CKD-EPI) equation refit??without adjustment for race. BUN/Creatinine Ratio 7.0 LAB CHEMISTRY METHOD 05/17/2024 11:32 AM EDT [facility] Calcium 9.0 8.5 - 10.5 mg/dL LAB CHEMISTRY METHOD 05/17/2024 11:32 AM EDT [facility] Blood Venous blood specimen / Unknown Venipuncture / Unknown 05/17/2024 5:37 AM EDT 05/17/2024 9:43 AM EDT us Laurence Florence MD LAB BLOOD ORDERABLES Final Resu lt Performing Organization Address [facility] de Phone Number [facility] [address] [place] [address], [place] [phone] * (ABNORMAL) Hemoglobin A1c (05/17/2024 5:37 AM EDT) Hemoglobin A1C 7.1(H) <6.5 % LAB CHEMISTRY METHOD 05/17/2024 1:30 PM EDT [facility] Mean Bld Glu Estim. 157 mg/dL LAB CHEMISTRY METHOD 05/17/2024 1:30 PM EDT [facility] Blood Venous blood specimen / Unknown Venipuncture / Unknown 05/17/2024 5:37 AM EDT 05/17/2024 9:43 AM EDT us Laurence Florence MD LAB BLOOD ORDERABLES Final Resu lt Performing Organization Address City/[facility]/ZIP Co de Phone Number [facility] [address] [place] [address], [place] [phone] * (ABNORMAL) Complete blood count (05/17/2024 5:37 AM EDT) WBC 16.6(H) 4.8 - 10.8 K/[facility] LAB HEMETOLOGY METHOD 05/17/2024 10:40 AM EDT [facility] RBC 3.70(L) 4.50 - 5.50 M/[facility] LAB HEMETOLOGY METHOD 05/17/2024 10:40 AM [facility] Hemoglobin 8.9(L) 13.5 - 17.5 g/dL LAB HEMETOLOGY METHOD 05/17/2024 10:40 AM [facility] Hematocrit 30.1(L) 42.0 - 54.0 % LAB HEMETOLOGY METHOD 05/17/2024 10:40 AM [facility] MCV 82.5 79.0 - 98.0 FL LAB HEMETOLOGY METHOD 05/17/2024 10:40 AM [facility] MCH 24.4(L) 27.0 - 32.0 pcg LAB HEMETOLOGY METHOD 05/17/2024 10:40 AM [facility] MCHC 29.6(L) 32.0 - 37.0 g/dL LAB HEMETOLOGY METHOD 05/17/2024 10:40 AM [facility] RDW 18.3(H) 11.0 - 15.0 % LAB HEMETOLOGY METHOD 05/17/2024 10:40 AM [facility] Platelets 431(H) 130 - 400 K/mcL LAB HEMETOLOGY METHOD 05/17/2024 10:40 AM [facility] MPV 10.6 7.0 - 11.0 FL LAB HEMETOLOGY METHOD 05/17/2024 10:40 AM [facility] NRBC 0.0 <1.0 % LAB HEMETOLOGY METHOD 05/17/2024 10:40 AM [facility] NRBC Absolute 0.00 <0.10 K/mcL LAB HEMETOLOGY METHOD 05/17/2024 10:40 AM [facility] Blood Venous blood specimen / Unknown Venipuncture / Unknown 05/17/2024 5:37 AM EDT 05/17/2024 9:43 AM EDT us Laurence Florence MD LAB BLOOD ORDERABLES Final Resu lt [facility] LAB [address] [place] [address], documented in this encounter Visit Diagnoses Diagnosis Type 2 diabetes mellitus without complications ([facility] V24, [facility] V28) End stage renal disease ([facility] V24, [facility] V28) End stage renal disease documented in this encounter Care Teams Claims Adjustor Relationship Specialty Start Date End Date Cass Turcios MD [address] [facility] [address] [place] [address] PCP - General Geriatric Medicine 04/02/24 documented as of this encounter
--- OUTSIDE RECORDS SUMMARY | 2024-07-02 15:01 | XMS_ITS | Encounter Summary ---
Author Organization [facility] Address [address] [place] [address] Care Team Providers Care Interpreter Translator Name Role Phone Cass Turcios MD Primary Care Provider [phone] Encounter Details Date Type Department Care Team (Late st Contact Info) Description 05/18/2024 Lab Requisition [facility] - Main Lab [address] [facility] [place] [address] Elsy Christina PA [address] [employer] [address] [place] [address] Unspecified systolic (congestive) heart failure ([facility] V24, CMS/HCC V28); Type 2 diabetes mellitus without complications (CMS/HCC V24, CMS/HCC V28); End stage renal disease (CMS/HCC V24, CMS/[facility] V28) Social History Tobacco Use [...] loved ones. For example, child and adolescent psychologist or elderly care for an older adult? [...] EDT Unspecified systolic (congestive) heart failure ([facility]/HCC) Type 2 diabetes mellitus without [...] 10:27 AM EDT [facility] Lymphocytes Absolute 2.30 1.00 - [...] Re sult [facility] [address] [place] [address], * (ABNORMAL) Hemoglobin A1c (05/18/2024 7:20 AM [...] Re sult [facility] [address] [place] [address], [place] [phone] * (ABNORMAL) Basic metabolic panel (05/18/2024 7:20 [...] Re sult [facility] [address] [place] [address], documented in this encounter Visit Diagnoses Diagnosis Unspecified systolic (congestive) heart failure ([facility] V24, [facility] V28) Type 2 diabetes mellitus without complications ([facility] V24, [facility] V28) End stage renal disease ([facility] V24, [facility] V28) End stage renal disease documented in this encounter Care Teams Interpreter Translator Relationship Specialty Start Date End Date Cass Turcios MD [address] [place] [address] [address] [place] [address] PCP - General Geriatric Medicine 04/02/24 documented as of this encounter
--- OUTSIDE RECORDS SUMMARY | 2024-07-02 15:01 | XMS_ITS | Encounter Summary ---
Author Organization [facility] Address [address] [place] [address] Care Team Providers Care Meat Wrapper Name Role Phone Cass Turcios MD Primary Care Provider [phone] Encounter Details Date Type Department Care Team (Late st Contact Info) Description 05/30/[address] [facility] - Main Lab 299 [facility] [place] [address] Laurence Florence MD [address] [place] [address] Chronic respiratory failure with hypoxia (CMS/HCC V24, [...] LAB MICROBIOLOGY METHOD 06/04/2024 9:01 AM EDT [facility] Blood Venipuncture / Unknown 05/30/2024 7:41 AM EDT 05/30/2024 8:14 AM EDT us Laurence Florence MD LAB MICROBIOLOGY - IRA [facility] MALAIKA HURD Final Result [facility] [address] [place] [address], documented in this encounter Visit Diagnoses Diagnosis Chronic respiratory failure with hypoxia (CMS/HCC V24, CMS/HCC V28) Encounter for orthopedic aftercare following surgical amputation Encounter for surgical aftercare following surgery on the circulatory system Peripheral vascular disease, unspecified ([facility] V24) Peripheral vascular disease, unspecified documented in this encounter Care Teams Meat Wrapper Relationship Specialty Start Date End Date Cass Turcios MD [address] [place] [address] [address] [place] [address] PCP - General Geriatric Medicine 04/02/24 documented as of this encounter
--- OUTSIDE RECORDS SUMMARY | 2024-07-02 15:01 | XMS_ITS | Encounter Summary ---
Author Organization [facility] Address [address] [place] [address] Care Team Providers Care Social Media Assistant Name Role Phone Cass Turcios MD Primary Care Provider [phone] Encounter Details Date Type Department Care Team (Late st Contact Info) Description 05/20/2024 Lab Requisition [facility] - Main Lab 299 [facility] [place] [address] Laurence Florence MD [address] [place] [address] Elevated white blood cell count, unspecified Social [...] loved ones. For example, child protective services social worker or elderly care for an [...] mmol/L LAB CHEMISTRY METHOD 05/20/2024 1:59 PM [facility] Potassium 5.8(H) 3.5 - 5.5 mmol/L LAB CHEMISTRY METHOD 05/20/2024 1:59 PM [facility] Chloride 100 96 - 110 mmol/L LAB CHEMISTRY METHOD 05/20/2024 1:59 PM [facility] CO2 26 21 - 32 mmol/L LAB CHEMISTRY METHOD 05/20/2024 1:59 PM [facility] Anion Gap 12(H) 3 - 11 LAB CHEMISTRY METHOD 05/20/2024 1:59 PM [facility] Glucose 130(H) 70 - 100 mg/dL LAB CHEMISTRY METHOD 05/20/2024 1:59 PM [facility] BUN 76(H) 5 - 25 mg/dL LAB CHEMISTRY METHOD 05/20/2024 1:59 PM [facility] Creatinine 9.66(H) 0.70 - 1.30 mg/dL LAB CHEMISTRY METHOD 05/20/2024 1:59 PM [facility] eGFR 5(L) >=60 mL/min/1. 73m2 LAB CHEMISTRY METHOD 05/20/2024 1:59 PM [facility] Comment:Calculation based on the??Chronic Kidney Disease Epidemiology Collaboration (CKD-EPI) equation refit??without adjustment for race. BUN/Creatinine Ratio 7.9 LAB CHEMISTRY METHOD 05/20/2024 1:59 PM [facility] Calcium 9.2 8.5 - 10.5 mg/dL LAB CHEMISTRY METHOD 05/20/2024 1:59 PM [facility] AST (SGOT) 9(L) 10 - 42 unit/L LAB CHEMISTRY METHOD 05/20/2024 1:59 PM [facility] ALT (SGPT) 14 10 - 60 unit/L LAB CHEMISTRY METHOD 05/20/2024 1:59 PM EDT [facility] Alkaline Phosphatase 142(H) 42 - 121 unit/L LAB CHEMISTRY METHOD 05/20/2024 1:59 PM EDT [facility] Total Protein 6.1 6.0 - 8.0 g/dL LAB CHEMISTRY METHOD 05/20/2024 1:59 PM EDT [facility] Albumin 2.5(L) 3.2 - 5.0 g/dL LAB CHEMISTRY METHOD 05/20/2024 1:59 PM EDT [facility] Total Bilirubin 0.4 0.0 - 1.4 mg/dL LAB CHEMISTRY METHOD 05/20/2024 1:59 PM EDT [facility] Blood Venous blood specimen / Unknown Venipuncture / Unknown 05/20/2024 6:04 AM EDT 05/20/2024 11:40 AM EDT us Laurence Florence MD LAB BLOOD ORDERABLES Final Resu lt [facility] [address] [place] [address], * (ABNORMAL) Complete blood count (05/20/2024 6:04 AM EDT) WBC 15.6(H) 4.8 - 10.8 K/mcL LAB HEMETOLOGY METHOD 05/20/2024 1:18 PM EDT [facility] RBC 3.50(L) 4.50 - 5.50 M/mcL LAB HEMETOLOGY METHOD 05/20/2024 1:18 PM EDT [facility] Hemoglobin 8.6(L) 13.5 - 17.5 g/dL LAB HEMETOLOGY METHOD 05/20/2024 1:18 PM EDT [facility] Hematocrit 29.0(L) 42.0 - 54.0 % LAB HEMETOLOGY METHOD 05/20/2024 1:18 PM EDT [facility] MCV 82.9 79.0 - 98.0 FL LAB HEMETOLOGY METHOD 05/20/2024 1:18 PM EDT [facility] MCH 24.6(L) 27.0 - 32.0 pcg LAB HEMETOLOGY METHOD 05/20/2024 1:18 PM EDT [facility] MCHC 29.7(L) 32.0 - 37.0 g/dL LAB HEMETOLOGY METHOD 05/20/2024 1:18 PM EDT [facility] RDW 19.1(H) 11.0 - 15.0 % LAB HEMETOLOGY METHOD 05/20/2024 1:18 PM EDT [facility] Platelets 479(H) 130 - 400 K/mcL LAB HEMETOLOGY METHOD 05/20/2024 1:18 PM EDT [facility] MPV 11.3(H) 7.0 - 11.0 FL LAB HEMETOLOGY METHOD 05/20/2024 1:18 PM EDT [facility] NRBC 0.0 <1.0 % LAB HEMETOLOGY METHOD 05/20/2024 1:18 PM EDT [facility] NRBC Absolute 0.00 <0.10 K/mcL LAB HEMETOLOGY METHOD 05/20/2024 1:18 PM EDT [facility] Blood Venous blood specimen / Unknown Venipuncture / Unknown 05/20/2024 6:04 AM EDT 05/20/2024 11:40 AM EDT us Laurence Florence MD LAB BLOOD ORDERABLES Final Resu lt [facility] [address] [place] [address], documented in this encounter Visit Diagnoses Diagnosis Elevated white blood cell count, unspecified documented in this encounter Care Teams Social Media Assistant Relationship Specialty Start Date End Date Cass Turcios MD [address] [place] [address] [address] [place] [address] PCP - General Geriatric Medicine 04/02/24 documented as of this encounter
--- OUTSIDE RECORDS SUMMARY | 2024-07-02 15:01 | XMS_ITS | Encounter Summary ---
Author Organization [facility], Address [address] [place] [address] Phone Care Team Providers Care Pathology Teacher Name Role Phone Jade Lewis MD Primary Care Provider [phone] Reason for Visit * Reason Comments Med Refill Encounter Details Date Type Department Care Team ([facility] st Contact Info) Description 11/27/2020 Refill [facility] [address] [place] [phone] Alejandro Santana MD [address] [place] [phone] Social History Tobacco Use Types Packs/Day Years [...] on filedocumented in this encounter Care Teams Pathology Teacher Relationship Specialty Start Date End Date Jade Lewis MD [address] [place] [address] PCP - General Internal Medicine 04/25/22 documented as of this encounter
--- OUTSIDE RECORDS SUMMARY | 2024-07-02 15:01 | XMS_ITS | Encounter Summary ---
Author Organization [facility], Address [address] [place] [address] Phone Care Team Providers Care Railcar Foreman Name Role Phone Jade Lewis MD Primary Care Provider [phone] Reason for Visit * Reason Comments Med Refill Encounter Details Date Type Department Care Team (Late st Contact Info) Description 09/17/2022 Refill [facility] [address] [place] [phone] Malcolm Taylor MD [address] [place] [address] [place] [address] Social History Tobacco Use Types Packs/Day Years [...] on filedocumented in this encounter Care Teams Railcar Foreman Relationship Specialty Start Date End Date Jade Lewis MD [address] [place] [address] PCP - General Internal Medicine 04/25/22 documented as of this encounter
--- OUTSIDE RECORDS SUMMARY | 2024-07-02 15:01 | XMS_ITS | Encounter Summary ---
Author Organization [facility] Address [address] [place] [address] Care Team Providers Care Farm Implement Engine Mechanic Name Role Phone Cass Turcios MD Primary Care Provider Encounter Details Date Type Department Care Team (Latest Contact Info) Description 05/24/2024 Lab Requisition [facility] - Main Lab 299 [facility] [place] [address] Laurence Florence MD [address] [place] [address] Chronic combined systolic (congestive) and diastolic (congestive) [...] for your loved ones. For example, childcare aide or elderly care for an older [...] mellitus without complications End stage renal disease ([facility]/HCC) BASIC METABOLIC PANEL Routine 05/24/2024 5:56 AM EDT Chronic combined systolic (congestive) and diastolic (congestive) heart failure Type 2 diabetes mellitus without complications End stage renal disease ([facility]/HCC) documented in this encounter Results * (ABNORMAL) CBC auto differential (05/24/2024 5:56 AM EDT) [facility] WBC 9.3 4.8 - 10.8 K/mcL LAB HEMETOLOGY METHOD 05/24/2024 9:31 AM [facility] RBC 3.40(L) 4.50 - 5.50 M/mcL LAB HEMETOLOGY METHOD 05/24/2024 9:31 AM [facility] Hemoglobin 8.5(L) 13.5 - 17.5 g/dL LAB HEMETOLOGY METHOD 05/24/2024 9:31 AM [facility] Hematocrit 28.2(L) 42.0 - 54.0 % LAB HEMETOLOGY METHOD 05/24/2024 9:31 AM [facility] MCV 82.0 79.0 - 98.0 FL LAB HEMETOLOGY METHOD 05/24/2024 9:31 AM [facility] MCH 24.7(L) 27.0 - 32.0 pcg LAB HEMETOLOGY METHOD 05/24/2024 9:31 AM [facility] MCHC 30.1(L) 32.0 - 37.0 g/dL LAB HEMETOLOGY METHOD 05/24/2024 9:31 AM [facility] RDW 17.8(H) 11.0 - 15.0 % LAB HEMETOLOGY METHOD 05/24/2024 9:31 AM [facility] Platelets 335 130 - 400 K/mcL LAB HEMETOLOGY METHOD 05/24/2024 9:31 AM [facility] MPV 10.5 7.0 - 11.0 FL LAB HEMETOLOGY METHOD 05/24/2024 9:31 AM [facility] NRBC 0.0 <1.0 % LAB HEMETOLOGY METHOD 05/24/2024 9:31 AM [facility] NRBC Absolute 0.00 <0.10 K/mcL LAB HEMETOLOGY METHOD 05/24/2024 9:31 AM [facility] Neutrophils Relative 67.5 % LAB HEMETOLOGY METHOD 05/24/2024 9:31 AM [facility] Lymphocytes Relative 16.4 % LAB HEMETOLOGY METHOD 05/24/2024 9:31 AM [facility] Monocytes Relative 10.6 % LAB HEMETOLOGY METHOD 05/24/2024 9:31 AM [facility] Eosinophils Relative 4.5 % LAB HEMETOLOGY METHOD 05/24/2024 9:31 AM [facility] Basophils Relative 0.4 % LAB HEMETOLOGY METHOD 05/24/2024 9:31 AM [facility] Immature Granulocytes Relative 0.6 % LAB HEMETOLOGY METHOD 05/24/2024 9:31 AM [facility] Neutrophils Absolute 6.24 1.50 - 7.00 K/mcL LAB HEMETOLOGY METHOD 05/24/2024 9:31 AM [facility] Lymphocytes Absolute 1.52 1.00 - 5.00 K/mcL LAB HEMETOLOGY METHOD 05/24/2024 9:31 AM [facility] Monocytes Absolute 0.98 0.20 - [...] Resu lt [facility] [address] [place] [address], [place] [phone] * (ABNORMAL) Basic metabolic panel (05/24/2024 5:56 AM EDT) Sodium 134 133 - 145 mmol/L LAB CHEMISTRY METHOD 05/24/2024 9:53 AM [facility] Potassium 4.8 3.5 - 5.5 mmol/L LAB CHEMISTRY METHOD 05/24/2024 9:53 AM [facility] Chloride 100 96 - 110 mmol/L LAB CHEMISTRY METHOD 05/24/2024 9:53 AM [facility] CO2 26 21 - 32 mmol/L LAB CHEMISTRY METHOD 05/24/2024 9:53 AM [facility] Anion Gap 8 3 - 11 LAB CHEMISTRY METHOD 05/24/2024 9:53 AM [facility] Glucose 131(H) 70 - 100 [...] Resu lt [facility] [address] [place] [address], documented in this encounter Visit Diagnoses Diagnosis Chronic combined systolic (congestive) and diastolic (congestive) heart failure (CMS/HCC V24, CMS/HCC V28) Type 2 diabetes mellitus without complications (CMS/HCC V24, CMS/HCC V28) End stage renal disease (CMS/HCC V24, CMS/HCC V28) End stage renal disease documented in this encounter Care Teams Farm Implement Engine Mechanic Relationship Specialty Start Date End Date Cass Turcios MD [address] [place], [place] [phone] [place] [address] PCP - General Geriatric Medicine 04/02/24 documented as of this encounter
--- OUTSIDE RECORDS SUMMARY | 2024-07-02 15:01 | XMS_ITS | Encounter Summary ---
Author Organization [facility], Address [address] [place] [address] Phone Care Team Providers Care Safety Officer Name Role Phone Jade Lewis MD Primary Care Provider [phone] Reason for Visit * Reason Comments Med Refill Encounter Details Date Type Department Care Team ([facility] st Contact Info) Description 10/28/2020 Refill [facility] [address] [place] [phone] Alejandro Santana MD [address] [place] [phone] Social History Tobacco Use Types Packs/Day Years [...] on filedocumented in this encounter Care Teams Safety Officer Relationship Specialty Start Date End Date Jade Lewis MD [address] [place] [address] PCP - General Internal Medicine 04/25/22 documented as of this encounter
--- OUTSIDE RECORDS SUMMARY | 2024-07-02 15:01 | XMS_ITS | Encounter Summary ---
Author Organization [facility] Address [address] [place] [address] Care Team Providers Care Behavioral Intervention Specialist Name Role Phone Cass Turcios MD Primary Care Provider [phone] Encounter Details Date Type Department Care Team (Late st Contact Info) Description 05/30/2024 Lab Requisition [facility] - Main Lab 299 [facility] [place] [address] Laurence Florence MD [address] [place] [address] Chronic respiratory failure with hypoxia (CMS/HCC V24, [...] LAB MICROBIOLOGY METHOD 06/04/2024 9:01 AM EDT [facility] Blood Venipuncture / Unknown 05/30/2024 7:36 AM EDT 05/30/2024 8:11 AM EDT us Laurence Florence MD LAB MICROBIOLOGY - GENERAL MALAIKA HURD Final Result [facility] LAB [address] [place] [address], [place] [phone] * Lactate (05/30/2024 7:36 AM EDT) [facility] Lactate 0.6 0.4 - 2.0 mmol/L LAB CHEMISTRY METHOD 05/30/2024 8:47 AM EDT [facility] LAB Blood Venous blood specimen / Unknown Venipuncture / Unknown 05/30/2024 7:36 AM EDT 05/30/2024 8:11 AM EDT us Laurence Florence MD LAB BLOOD ORDERABLES Final Resu lt [facility] [address] [place] [address], [place] [phone] * (ABNORMAL) C-reactive protein (05/30/2024 7:36 AM EDT) [facility] C-Reactive Protein 11.60(H) <=0.50 mg/dL LAB CHEMISTRY METHOD 05/30/2024 8:51 AM EDT [facility] LAB Blood Venous blood specimen / Unknown Venipuncture / Unknown 05/30/2024 7:36 AM EDT 05/30/2024 8:11 AM EDT us Laurence Florence MD LAB BLOOD ORDERABLES Final Resu lt [facility] [address] [place] [address], [place] [phone] * (ABNORMAL) Sedimentation rate (05/30/2024 7:36 AM EDT) [facility] Sed Rate >130(H) 0 - 20 mm/hr LAB HEMETOLOGY METHOD 05/30/2024 8:57 AM EDT [facility] Blood Venous blood specimen / Unknown Venipuncture / Unknown 05/30/2024 7:36 AM EDT 05/30/2024 8:11 AM EDT Narrative [facility] - 05/30/2024 8:57 AM EDT Rechecked. us Laurence Florence MD LAB BLOOD ORDERABLES Final Resu lt [facility] [address] [place] [address], [place] [phone] * (ABNORMAL) Comprehensive metabolic panel (05/30/2024 7:36 AM EDT) Sodium 140 133 - 145 mmol/L LAB CHEMISTRY METHOD 05/30/2024 9:08 AM [facility] Potassium 4.2 3.5 - 5.5 mmol/L LAB CHEMISTRY METHOD 05/30/2024 9:08 AM [facility] Chloride 104 96 - 110 mmol/L LAB CHEMISTRY METHOD 05/30/2024 9:08 AM [facility] CO2 28 21 - 32 mmol/L LAB CHEMISTRY METHOD 05/30/2024 9:08 AM [facility] Anion Gap 8 3 - 11 LAB CHEMISTRY METHOD 05/30/2024 9:08 AM [facility] Glucose 77 70 - 100 mg/dL LAB CHEMISTRY METHOD 05/30/2024 9:08 AM [facility] BUN 35(H) 5 - 25 mg/dL LAB CHEMISTRY METHOD 05/30/2024 9:08 AM [facility] Creatinine 5.30(H) 0.70 - 1.30 mg/dL LAB CHEMISTRY METHOD 05/30/2024 9:08 AM [facility] eGFR 11(L) >=60 mL/min/1. 73m2 LAB CHEMISTRY METHOD 05/30/2024 9:08 AM [facility] Comment:Calculation based on the??Chronic Kidney Disease Epidemiology Collaboration (CKD-EPI) equation refit??without adjustment for race. BUN/Creatinine Ratio 6.6 LAB CHEMISTRY METHOD 05/30/2024 9:08 AM [facility] Calcium 9.0 8.5 - 10.5 mg/dL LAB CHEMISTRY METHOD 05/30/2024 9:08 AM [facility] AST (SGOT) 10 10 - 42 unit/L LAB CHEMISTRY METHOD 05/30/2024 9:08 AM [facility] ALT (SGPT) 13 10 - 60 unit/L LAB CHEMISTRY METHOD 05/30/2024 9:08 AM [facility] Alkaline Phosphatase 141(H) 42 - 121 unit/L LAB CHEMISTRY METHOD 05/30/2024 9:08 AM [facility] Total Protein 6.3 6.0 - 8.0 g/dL LAB CHEMISTRY METHOD 05/30/2024 9:08 AM [facility] Albumin 2.5(L) 3.2 - 5.0 g/dL LAB CHEMISTRY METHOD 05/30/2024 9:08 AM [facility] Total Bilirubin 0.5 0.0 - 1.4 mg/dL LAB CHEMISTRY METHOD 05/30/2024 9:08 AM [facility] Blood Venous blood specimen / Unknown Venipuncture / Unknown 05/30/2024 7:36 AM EDT 05/30/2024 8:11 AM EDT us Laurence Florence MD LAB BLOOD ORDERABLES Final Resu lt [facility] [address] [place] [address], * (ABNORMAL) Complete blood count (05/30/2024 7:36 AM EDT) WBC 9.7 4.8 - 10.8 K/mcL LAB HEMETOLOGY METHOD 05/30/2024 8:29 AM EDT [facility] RBC 3.20(L) 4.50 - 5.50 M/mcL LAB HEMETOLOGY METHOD 05/30/2024 8:29 AM [facility] Hemoglobin 7.7(L) 13.5 - 17.5 g/dL LAB HEMETOLOGY METHOD 05/30/2024 8:29 AM [facility] Hematocrit 26.0(L) 42.0 - 54.0 % LAB HEMETOLOGY METHOD 05/30/2024 8:29 AM [facility] MCV 81.5 79.0 - 98.0 FL LAB HEMETOLOGY METHOD 05/30/2024 8:29 AM [facility] MCH 24.1(L) 27.0 - 32.0 pcg LAB HEMETOLOGY METHOD 05/30/2024 8:29 AM [facility] MCHC 29.6(L) 32.0 - 37.0 g/dL LAB HEMETOLOGY METHOD 05/30/2024 8:29 AM [facility] RDW 17.8(H) 11.0 - 15.0 % LAB HEMETOLOGY METHOD 05/30/2024 8:29 AM [facility] Platelets 244 130 - 400 K/mcL LAB HEMETOLOGY METHOD 05/30/2024 8:29 AM [facility] MPV 11.1(H) 7.0 - 11.0 FL LAB HEMETOLOGY METHOD 05/30/2024 8:29 AM [facility] NRBC 0.0 <1.0 % LAB HEMETOLOGY METHOD 05/30/2024 8:29 AM [facility] LAB NRBC Absolute 0.00 <0.10 K/mcL LAB HEMETOLOGY METHOD 05/30/2024 8:29 AM [facility] LAB Blood Venous blood specimen / Unknown Venipuncture / Unknown 05/30/2024 7:36 AM EDT 05/30/2024 8:11 AM EDT us Laurence Florence MD LAB BLOOD ORDERABLES Final Resu lt [facility] ([facility]) [facility] [address] [place] [address], documented in this encounter Visit Diagnoses Diagnosis Chronic respiratory failure with hypoxia (CMS/[facility] V24, CMS/[facility] V28) Encounter for orthopedic aftercare following surgical amputation Encounter for surgical aftercare following surgery on the circulatory system Peripheral vascular disease, unspecified ([facility] V24) Peripheral vascular disease, unspecified documented in this encounter Care Teams Behavioral Intervention Specialist Relationship Specialty Start Date End Date Cass Turcios MD [address] [place] [address] [address] [place] [address] PCP - General Geriatric Medicine 04/02/24 documented as of this encounter
--- OUTSIDE RECORDS SUMMARY | 2024-07-02 15:01 | XMS_ITS ---
[facility] Care Plan Created on: June 28, 2024 Beau Marie : 1955 Sex: Male Author Organization [email or web address] Address [address] [place] [address] [address] [place] [address] Phone Health Concerns Health Status [facility] Health Concerns None
--- OUTSIDE RECORDS SUMMARY | 2024-07-02 15:01 | XMS_ITS | Encounter Summary ---
Author Organization [facility] Address [address] [place] [address] Care Team Providers Care Soaking Pit Operator Name Role Phone Cass Turcios MD Primary Care Provider [phone] Encounter Details Date Type Department Care Team (Late st Contact Info) Description 05/21/2024 Lab Requisition [facility] - Main Lab [address] [facility] [place] [address] Laurence Florence MD [address] [place] [address] Chronic combined systolic (congestive) and diastolic (congestive) [...] your loved ones. For example, early childhood teacher assistant or elderly care for an [...] CBC auto differential (05/21/2024 5:40 AM EDT) [facility] WBC 14.4(H) 4.8 - 10.8 K/mcL LAB HEMETOLOGY METHOD 05/21/2024 12:[address] [facility] RBC 3.80(L) 4.50 - 5.50 M/mcL LAB HEMETOLOGY METHOD 05/21/2024 12:[address] [facility] Hemoglobin 9.5(L) 13.5 - 17.5 g/dL LAB HEMETOLOGY METHOD 05/21/2024 12:[address] [facility] Hematocrit 33.1(L) 42.0 - 54.0 % LAB HEMETOLOGY METHOD 05/21/2024 12:[address] [facility] MCV 87.1 79.0 - 98.0 FL LAB HEMETOLOGY METHOD 05/21/2024 12:[address] [facility] MCH 25.0(L) 27.0 - 32.0 pcg LAB HEMETOLOGY METHOD 05/21/2024 12:[address] [facility] MCHC 28.7(L) 32.0 - 37.0 g/dL LAB HEMETOLOGY METHOD 05/21/2024 12:[address] [facility] RDW 19.6(H) 11.0 - 15.0 % LAB HEMETOLOGY METHOD 05/21/2024 12:[address] [facility] Platelets 447(H) 130 - 400 K/mcL LAB HEMETOLOGY METHOD 05/21/2024 12:[address] [facility] MPV 11.3(H) 7.0 - 11.0 FL LAB HEMETOLOGY METHOD [facility] NRBC 0.0 <1.0 % LAB HEM[facility]OLOGY METHOD [facility]24 [facility] NRBC Absolute 0.00 <0.10 K/mcL LAB HEMETOLOGY METHOD 05/21/2024 12:[address] [facility] Neutrophils Relative 76.8 % LAB HEMETOLOGY METHOD 05/21/2024 12:[address] [facility] Lymphocytes Relative 13.0 % LAB HEMETOLOGY METHOD 05/21/2024 12:[address] [facility] Monocytes Relative 7.0 % LAB HEMETOLOGY METHOD 05/21/2024 12:[address] [facility] Eosinophils Relative 2.0 % LAB HEMETOLOGY METHOD 05/21/2024 12:[address] [facility] Basophils Relative 0.4 % LAB HEMETOLOGY METHOD 05/21/2024 12:[address] [facility] Immature Granulocytes Relative 0.8 % LAB HEMETOLOGY METHOD 05/21/2024 12:[address] [facility] Neutrophils Absolute 11.05(H) 1.50 - 7.00 K/mcL LAB HEMETOLOGY METHOD 05/21[facility]24 [facility] Lymphocytes Absolute 1.87 1.00 - 5.00 K/mcL LAB HEMETOLOGY METHOD 05/21/2024 12:[address] [facility] Monocytes Absolute 1.00 0.20 - 1.00 K/mcL LAB HEMETOLOGY METHOD 05/21/2024 12:[address] [facility] Eosinophils Absolute 0.29 0.00 - 0.50 K/[facility] LAB HEMETOLOGY METHOD 05/21/2024 12:[address] [facility] Basophils Absolute 0.06 0.00 - 0.20 K/mcL LAB HEMETOLOGY METHOD 05/21/2024 12:[address] [facility] Immature Granulocytes Absolute 0.11(H) 0.00 - 0.03 K/[facility] LAB HEMETOLOGY METHOD 05/21/2024 12:[address] [facility] Blood Venous blood specimen / Unknown Venipuncture / Unknown 05/21/2024 5:40 AM EDT 05/21/2024 11:19 AM EDT us Laurence Florence MD LAB BLOOD ORDERABLES Final Resu lt [facility] [address] [place] [address], [place] [phone] * (ABNORMAL) Basic metabolic panel (05/21/2024 5:40 AM EDT) Sodium 137 133 - 145 mmol/L LAB CHEMISTRY METHOD 05/21/2024 2:[address] [facility] Potassium 5.3 3.5 - 5.5 mmol/L LAB CHEMISTRY METHOD 05/21/2024 2:[address] [facility] Comment:Hemolysis present Chloride 99 96 - 110 mmol/L LAB CHEMISTRY METHOD 05/21/2024 2:[address] [facility] CO2 27 21 - 32 mmol/L LAB CHEMISTRY METHOD 05/21/2024 2:[address] [facility] Anion Gap 11 3 - 11 LAB CHEMISTRY METHOD 05/21/2024 2:[address] [facility] Glucose 76 70 - 100 mg/dL LAB CHEMISTRY METHOD 05/21/2024 2:[address] [facility] BUN 58(H) 5 - 25 mg/dL LAB CHEMISTRY METHOD 05/21/2024 2:[address] [facility] Creatinine 7.10(H) 0.70 - 1.30 mg/dL LAB CHEMISTRY METHOD 05/21/2024 2:[address] [facility] eGFR 8(L) >=60 mL/min/1. 73m2 LAB CHEMISTRY METHOD 05/21/2024 2:[address] [facility] Comment:Calculation based on the??Chronic Kidney Disease Epidemiology Collaboration (CKD-EPI) equation refit??without adjustment for race. BUN/Creatinine Ratio 8.2 LAB CHEMISTRY METHOD 05/21/2024 2:[address] [facility] Calcium 8.6 8.5 - 10.5 mg/dL LAB CHEMISTRY METHOD 05/21/2024 2:[address] [facility] Blood Venous blood specimen / Unknown Venipuncture / Unknown 05/21/2024 5:40 AM EDT 05/21/2024 11:19 AM EDT us Laurence Florence MD LAB BLOOD ORDERABLES Final Resu lt [facility] [address] [place] [address], documented in this encounter Visit Diagnoses Diagnosis Chronic combined systolic (congestive) and diastolic (congestive) heart failure (CMS/HCC V24, CMS/HCC V28) End stage renal disease (CMS/HCC V24, CMS/HCC V28) End stage renal disease documented in this encounter Care Teams Soaking Pit Operator Relationship Specialty Start Date End Date Cass Turcios MD [address] [place] [address] [address] [place] [address] PCP - General Geriatric Medicine 04/02/24 documented as of this encounter
== END 2024-07-02 13:55 | disposition home or self-care (01) ==
LOC: HO.HVS 13:03
PROVIDERS: Visit Provider Surgery Vascular Surgery
DX: I73.9 Peripheral vascular disease, unspecified (principal)
CPT/HCPCS: 99024

== ENCOUNTER → 2024-07-02 13:02 | Outpatient (BNVA) | payer MEDICARE, MEDICAID, SELFPAY | PROVIDERS: Visit Provider Surgery Vascular Surgery | DX: Z13.89 Encounter for screening for other disorder (principal) | CPT/HCPCS: 99212 ==

== ENCOUNTER 2024-07-02 14:04 | Emergency (ER) | payer MEDICARE, MEDICAID, SELFPAY ==
[2024-07-02] VITALS (10 sets, daily range): BP systolic 170–204; BP diastolic 79–97; PULSE 78–99; RESP 12–20; TEMP 36.8–37; O2SAT 92–100; BMI 28.3
--- NOTE | ~2024-07-02 | XR_ITS ---
EXAMINATION: XR CHEST CLINICAL INFORMATION: shortness of breath COMPARISON: 05/11/2024, 04/16/2024. CT chest 05/01/2024. TECHNIQUE: Frontal view of the chest was obtained. FINDINGS: Right-sided dialysis catheter in place with tip in the cavoatrial junction. There is cardiomegaly. Mediastinal and hilar contours appear normal. There is aortic mural calcification. Lungs demonstrate increased patchy opacity right base with a subtle right pleural effusion. The left lung is clear. No definite left effusion. Vascular stent in the left subclavian region. Diffuse vascular calcifications in the soft tissues. Degenerative changes in both shoulder joints and throughout the spine. XR/XR chest 1V IMPRESSION: 1. Well-positioned dialysis catheter. 2. Cardiomegaly with no overt CHF. 3. Small right pleural effusion with chronic appearing consolidative density right lower lung. Differential includes cicatrization atelectasis or persistent consolidative pneumonia. Electronically signed by: Morro Van MD 07/02/2024 03:19 PM EDT
--- NOTE | ~2024-07-02 | XR_ITS ---
CLINICAL HISTORY: infection 2 view right femur Comparison: CR/SR - XR KNEE RT 2V - 06/18/24 16:[address]/SR - CT FEMUR RT WO IV CON - 05/31/24 19:37 EDT Findings: Status post right brybi-fmo-tyje amputation with soft tissue defect/wound at the stump. Trace subcutaneous air near the wound without extension to the proximal soft tissues. No radiographic evidence of osteomyelitis. Right hip osteoarthritis. No acute fracture or dislocation. Vascular calcifications. IMPRESSION: 1. No acute osseous injury. 2. Status post right below-knee amputation with trace subcutaneous air near the stump wound. No extension to the proximal soft tissues. No radiographic evidence of osteomyelitis. This document has been electronically signed by: Tavon Pena MD on 07/02/2024 19:38:28
--- NOTE | 2024-07-02 14:25 | ECG_ITS ---
Test Reason : FALL Blood Pressure : */* mmHG Vent. Rate : 83 BPM Atrial Rate : 83 BPM P-R Int : 162 ms QRS Dur : 92 ms QT Int : 394 ms P-R-T Axes : 7 -44 113 degrees QTcB Int : 462 ms Normal sinus rhythm Left axis deviation Minimal voltage criteria for LVH, may be normal variant ( James product ) Anterior infarct T wave abnormality, consider lateral ischemia Abnormal ECG When compared with ECG of 10-May-2024 18:57, Significant changes have occurred Referred By: Generic ED Physician Electronically Signed By: Tim Lan
--- NOTE | 2024-07-02 14:27 | ED_ITS ---
HPI - General Adult General Chief complaint: Extremity Problem Stated complaint: Swelling both legs Time Seen by Provider: 07/02/24 18:03 Source: patient and family Limitations: language barrier History of Present Illness ED Provider: Rena Martinez PA-C HPI narrative: 69-year-old male with a history of end-stage renal disease on dialysis, acute on chronic systolic and diastolic heart failure, hypertension, hyperlipidemia, diabetes, seizure disorder, status post right AKA on 05/09/24 Dr. Cannon, who presents with chronic wound, concern for infection. Patient was just seen by Dr. Cannon today in the office, the wound was debrided. The son is concerned that his father may be volume overloaded secondary to mild pitting edema of the left lower extremity. Patient denies chest pain or shortness of breath. Related Data Home Medications ?Medication ?Instructions ?Recorded ?Confirmed allopurinol 100 mg tablet 100 mg PO MOWEFR@1600 04/19/22 05/26/24 atorvastatin 40 mg tablet 40 mg PO SUTUTHSA@0900 04/19/22 05/26/24 doxazosin 4 mg tablet 4 mg PO BEDTIME 04/19/22 05/26/24 furosemide 80 mg tablet 80 mg PO SUTUTHSA@0900 04/19/22 05/26/24 omeprazole 20 mg capsule,delayed 20 mg PO DAILY@0630 04/19/22 05/26/24 release insulin lispro 100 unit/mL See Rx Instructions .Route .COMPLEX 04/10/23 05/26/24 subcutaneous pen aspirin 81 mg tablet,delayed 81 mg PO SUTUTHSA@0900 06/20/23 05/26/24 release pregabalin 75 mg capsule 75 mg PO TID 06/20/23 05/26/24 sucroferric oxyhydroxide 500 mg 500 mg PO TIDWM 01/24/24 05/26/24 chewable tablet (Velphoro) aspirin 81 mg tablet,delayed 81 mg PO MOWEFR@1600 04/05/24 05/26/24 release atorvastatin 40 mg tablet 40 mg PO MOWEFR@1600 04/05/24 05/26/24 fluticasone fur. 100 mcg-umeclid 1 inh inhalation DAILY 04/05/24 05/26/24 62.5 mcg-vilant 25 mcg inhalat.powder (Trelegy Ellipta) furosemide 80 mg tablet 80 mg PO MOWEFR@1600 04/05/24 05/26/24 losartan 25 mg tablet 25 mg PO MOWEFR@1600 04/05/24 05/26/24 losartan 25 mg tablet 25 mg PO SUTUTHSA@0900 04/05/24 05/26/24 insulin glargine 100 unit/mL (3 22 unit subcut BEDTIME 05/01/24 05/26/24 mL) subcutaneous pen (Lantus Solostar U-100 Insulin) acetaminophen 500 mg tablet 1,000 mg PO Q8H PRN Pain 05/26/24 05/26/24 amlodipine 10 mg tablet 10 mg PO DAILY 05/26/24 05/26/24 calcium carbonate (Calcium 500) 500 mg PO TID 05/26/24 05/26/24 carvedilol 12.5 mg tablet 12.5 mg PO BID 05/26/24 05/26/24 docusate sodium 100 mg capsule 100 mg PO DAILY 05/26/24 05/26/24 doxycycline monohydrate 100 mg 100 mg PO BID 05/26/24 05/26/24 capsule insulin lispro 100 unit/mL See Rx Instructions .Route .COMPLEX 05/26/24 05/26/24 subcutaneous solution (Humalog U-100 Insulin) levetiracetam 1,000 mg tablet 1,000 mg PO BID 05/26/24 05/26/24 (Keppra) tramadol 25 mg tablet 25 mg PO Q6H PRN Severe Pain 05/26/24 05/26/24 (Scale Score 7-10) Previous Rx's ?Medication ?Instructions ?Recorded PleurX catheter drainage kits #10 ea 10/17/23 doxycycline monohydrate 100 mg 100 mg PO DAILY 10 days #10 caps 05/27/24 capsule doxycycline hyclate 100 mg capsule 100 mg PO BID #19 caps 07/02/24 Allergies Allergy/AdvReac Type Severity Reaction Status Date / Time Iodinated Contrast Media Allergy Severe Facial Verified 07/02/24 14:24 [Contrast Dye] Swelling hydralazine AdvReac Severe vasculitis Verified 07/02/24 14:24 Review of Systems 2 Review of Systems: Yes all other systems are reviewed and are negative Constitutional: Constitutional: Denies fatigue and Denies fever(s) Cardiovascular: Cardiovascular: Denies chest pain and Denies dyspnea Respiratory: Respiratory: Denies cough and Denies dyspnea Musculoskeletal: Musculoskeletal: Reports muscle cramps Endocrine: Endocrine: Denies fatigue PMFSH Past Medical History Attestation statement: The following information was validated with the patient. Medical History Type 2 diabetes mellitus Dry gangrene PVD (peripheral vascular disease) ESRD needing dialysis Above knee amputation of right lower extremity Left ventricular systolic dysfunction (LVSD) Postop check Acute pericardial effusion Right sided weakness Dehiscence of wound Peripheral arterial disease Cellulitis of right foot Hypertension HFrEF (heart failure with reduced ejection fraction) ESRD (end stage renal disease) Chronic combined systolic and diastolic CHF (congestive heart failure) Chronic pericardial effusion Arthritis Asthma Restless leg syndrome Acute on chronic systolic and diastolic heart failure, NYHA class 3 Anemia ESRD (end stage renal disease) Occlusive thrombus Pulmonary edema ROBERT (obstructive sleep apnea) Hyperlipidemia Hypertension A-V fistula ESRD on dialysis Falling Surgical History Status post creation of pericardial window Postop check Hx of right BKA Status post transmetatarsal amputation of right foot History of transmetatarsal amputation of foot History of surgery H/O colonoscopy Recurrent pleural effusion Pleural effusion on right (07/13/23) Family History Family History Father No problems noted. Mother No problems noted. Social History Social History Household Members: Children Household Members Other:: son Housing: Apartment Are you a primary healthcare applications analyst to a significant other at home: No Do you presently have visiting nurse or other home services: No Alcohol intake: former Comment: n Patient Tobacco Use Status: Former Tobacco user Tobacco use type: Cigarette Second Hand Smoke Exposure: No Use of substances other than those prescribed or required for medical reasons: No Advance Directives: Yes Advance Directives on File: Yes Advance Directives Date on File: 10/04/23 Do you have a plan to hurt others: No Plan service: No Current occupational status: disabled 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 Physical Exam ED Vital Signs: Vital Signs - 24 hr 07/02/24 14:22 07/02/24 18:11 07/02/24 18:44 Temperature 98.3 F 98.6 F Pulse Rate 89 80 Respiratory Rate 20 18 16 Blood Pressure 193/97 H 195/79 H Pulse Oximetry 92 94 Oxygen Delivery Method Room Air Room Air 07/02/24 18:45 07/02/24 19:01 07/02/24 19:14 Temperature Pulse Rate 79 80 99 Respiratory Rate 12 15 Blood Pressure 200/91 H 192/95 H 173/84 H Pulse Oximetry 100 100 Oxygen Delivery Method Room Air Room Air 07/02/24 19:40 07/02/24 19:58 07/02/24 20:36 Temperature 98.5 F Pulse Rate 81 79 Respiratory Rate 16 17 Blood Pressure 177/88 H 170/81 H 204/93 H Pulse Oximetry 94 95 Oxygen Delivery Method Room Air Room Air BMI result Body Mass Index 28.3 Const Other: Alert Orientation/consciousness: patient oriented x3 Resp Effort & Inspection: normal respiratory effort Cardio Other: Warm and perfusing Skin Other: Warm dry no rash Neuro General: patient oriented x3, gait normal, no focal motor deficits and CN's II- XI intact bilaterally Extrem Other: CPX of. Psych Other: Cooperative Course Course Course Narrative: RME, this is a rapid medical exam performed by Anup León please refer to primary provider for complete H&P- 69-year-old female with a past medical history significant for diabetes, end-stage renal disease on dialysis, hypertension, congestive heart failure presents for evaluation of leg swelling and shortness of breath. Plan for labs, EKG, chest x-ray. He was hypertensive in triage but well-appearing Medications Administered Generic Name Dose Route Start Last Admin Trade Name Freq PRN Reason Stop Dose Admin Nitroglycerin 0.4 mg 07/02/24 18:06 07/02/24 19:18 Nitroglycerin 0.4 Mg Tab.Subl SUBLINGUAL 0.4 mg [id number] PRN Administration heart failure Discontinued Medications Generic Name Dose Route Start Last Admin Trade Name Freq PRN Reason Stop Dose Admin Morphine Sulfate 4 mg 07/02/24 18:36 07/02/24 18:44 Morphine Sulfate 4 Mg/Ml Cartridge IVPUSH 07/02/24 18:37 4 mg ONCE ONE Administration Protocol Medical Decision Making Medical Decision Making MDM Narrative: 69-year-old male with a history of end-stage renal disease on dialysis, acute on chronic systolic and diastolic heart failure, hypertension, hyperlipidemia, diabetes, seizure disorder, status post right AKA on 05/09/24 Dr. Cannon, who presents with chronic wound, concern for infection. Patient was just seen by Dr. Cannon today in the office, the wound was debrided. The son is concerned that his father may be volume overloaded secondary to mild pitting edema of the left lower extremity. Patient denies chest pain or shortness of breath. Problem: End-stage renal, you diabetes, nonhealing wound, peripheral vascular disease History: Per patient's son I have considered the following differential diagnoses: Cellulitis, purulent cellulitis, osteomyelitis, heart failure exacerbation Plan: The patient was always hypertensive, this is chronic for him. He has trace edema of the left lower extremity, he is not hypoxic he is 95% on room air screening labs including troponin and BNP, chest x-ray and EKG have been obtained. We will obtain a delta trop, his BNP is elevated, however this is secured secondary to his end-stage renal disease. His chest x-ray reveals a small pleural effusion but there was no overt heart failure. We will give nitroglycerin. He can not have Lasix due to anuria. In regard to his leg, he just saw his vascular surgeon today, it was debrided, there was no evidence of cellulitis, his surgeon clearly felt he did not require antibiotics. We will err on the side of caution obtain blood cultures a lactic, inflammatory markers and obtain imaging. I have independently reviewed the following tests: Labs: Slight leukocytosis with left shift, stable anemia, lactic 0.9, creatinine as expected, no additional electrolyte abnormalities, troponin x2 flat, C-reactive protein elevated at 22.83, BNP 3199, ESR 70 EKG: Normal sinus rhythm, LVH noted ischemic changes anterolateral that are new, rate 83, QTC 462 Chest x-ray: XR/XR chest 1V IMPRESSION: 1. Well-positioned dialysis catheter. 2. Cardiomegaly with no overt CHF. 3. Small right pleural effusion with chronic appearing consolidative density right lower lung. Differential includes cicatrization atelectasis or persistent consolidative pneumonia. X-ray right stump:MPRESSION: 1. No acute osseous injury. 2. Status post right below-knee amputation with trace subcutaneous air near the stump wound. No extension to the proximal soft tissues. No radiographic evidence of osteomyelitis. Given there was a new leukocytosis with left shift in the inflammatory markers are elevated, we will place the patient on doxycycline. Lab Data 07/02/24 14:55 07/02/24 14:55 Labs: Lab Results 07/02/24 07/02/24 07/02/24 Range/Units 14:55 18:21 18:48 WBC 13.1 H (4.8-10.8) X10*3/uL RBC 4.10 L (4.60-5.80) X10*6/uL Hgb 9.8 L (14.0-18.0) g/dl Hct 31.6 L (42.0-52.0) % MCV 77.1 L (80.0-98.0) fL MCH 23.9 L (27.0-33.0) pg MCHC 31.0 (31.0-36.0) g/dl RDW 17.3 H (11.0-16.0) % Plt Count 224 D (160-400) X10*3/uL MPV 11.7 (9.4-12.4) fL Immature Gran % (Auto) 0.5 H (0.0-0.4) % Neut % (Auto) 76.5 H (45-73) % Lymph % (Auto) 11.4 L (20-40) % [place] % (Auto) 9.5 (2-11) % Eos % (Auto) 1.9 (0-4) % Baso % (Auto) 0.2 (0-2) % Lymph # (Auto) 1.5 (1.2-4.9) X10*3/uL [place] # (Auto) 1.3 H (0.1-1.2) X10*3/uL Eos # (Auto) 0.3 (0.0-0.4) X10*3/uL Baso # (Auto) 0.0 (0.0-0.2) X10*3/uL Abs Immat Gran (auto) 0.07 H (0.00-0.03) X10*3/uL Absolute Neuts (auto) 10.0 H (2.0-8.3) x10*3/uL Absolute Nucleated RBC 0.000 (0.0-0.012) X10*3/uL Nucleated RBC % (auto) 0.0 (0.0-0.2) /100WBC Smear Tech's Comments VERIFIED ESR 70 H (0-15) MM/HR Sodium 141 (135-145) mmol/L Potassium 4.8 (3.3-5.1) mmol/L Chloride 99 (96-108) mmol/L Carbon Dioxide 27 (22-29) mmol/L Anion Gap 20 (12-20) BUN 63 H (9-16) mg/dL Creatinine 6.24 H* (0.5-1.4) mg/dL Estim Creat Clear Calc 10.4 Estimated GFR 9 Random Glucose 275 H (60-115) mg/dL Lactic Acid 0.9 (0.5-2.0) mmol/L Calcium 9.1 D (8.4-10.2) mg/dL Magnesium 1.7 (1.6-2.6) mg/dL Total Bilirubin 0.4 (0.0-1.0) mg/dL AST 19 (5-37) U/L ALT 15 (0-40) U/L Alkaline Phosphatase 116 (39-117) U/L Troponin I High Sens 66.0 H D 69.6 H (<3.5-35.0) ng/L C-Reactive Protein 22.83 H (< or = 0.50) mg/dL B-Natriuretic Peptide 3199 H (<100) pg/mL Total Protein 7.0 (6.5-8.0) g/dL Albumin 3.3 L (3.5-5.0) g/dL Discharge Plan Discharge Clinical Impression: Cellulitis Patient Disposition: Home, Self-Care Instructions: Cellulitis (ED) Additional Instructions: The x-ray of the right lower extremity was negative for bone infection, overall the wound does not appear infected, however there was a slight elevation in the white blood cell count, we will treat for early cellulitis. Take the doxycycline as directed. The chest x-ray is at your baseline, your cardiac enzymes are flat, there were no concerning changes on your EKG. Be sure to attend dialysis as directed, continue to follow up with Dr. Cannon. Prescriptions: New doxycycline hyclate 100 mg capsule 100 mg PO BID Qty: 19 0RF No Action (DME) PleurX catheter drainage kits 1000cc kits See Rx Instructions .Route .MEDSUPPLY Qty: 10 6RF Rx Instructions: As directed atorvastatin 40 mg tablet 40 mg PO SUTUTHSA@0900 allopurinol 100 mg tablet 100 mg PO MOWEFR@1600 Rx Instructions: GIVE AFTER DIALYSIS furosemide 80 mg tablet 80 mg PO SUTUTHSA@0900 omeprazole 20 mg capsule,delayed release(DR/EC) 20 mg PO DAILY@0630 doxazosin 4 mg tablet 4 mg PO BEDTIME Velphoro 500 mg tablet,chewable 500 mg PO TIDWM insulin lispro 100 unit/mL insulin pen See Rx Instructions .ROUTE .COMPLEX Rx Instructions: 1 sliding scale dose subcutaneously TIDAC on ;200-249 - 2 UNITS 250- 299 4 UNITS, 300-349 6 UNITS 350-439 8 UNITS 400+ CALL DR aspirin 81 mg tablet,delayed release (DR/EC) 81 mg PO SUTUTHSA@0900 pregabalin 75 mg capsule 75 mg PO TID atorvastatin 40 mg tablet 40 mg PO MOWEFR@1600 aspirin 81 mg Tablet,Delayed Release (Dr/Ec) 81 mg PO MOWEFR@1600 furosemide 80 mg tablet 80 mg PO MOWEFR@1600 losartan 25 mg tablet 25 mg PO MOWEFR@1600 Trelegy Ellipta 100-62.5-25 mcg Blister With Device 1 inh INHALATION DAILY losartan 25 mg tablet 25 mg PO SUTUTHSA@0900 Protocol: Hold for SBP< HOLD for SBP < : 90 insulin glargine [Lantus Solostar U-100 Insulin] 100 unit/mL (3 mL) insulin pen 22 unit subcut BEDTIME carvedilol 12.5 mg Tablet 12.5 mg PO BID Rx Instructions: must administer with a meal/food acetaminophen 500 mg Tablet 1,000 mg PO Q8H PRN (Reason: Pain) amlodipine 10 mg Tablet 10 mg PO DAILY doxycycline monohydrate 100 mg Capsule 100 mg PO BID Rx Instructions: END DATE: 05/27/24 docusate sodium 100 mg Capsule 100 mg PO DAILY calcium carbonate [Calcium 500] 500 mg calcium (1,250 mg) Tablet,Chewable 500 mg PO TID insulin lispro [Humalog U-100 Insulin] 100 unit/mL Solution See Rx Instructions .ROUTE .COMPLEX Rx Instructions: 1 sliding scale dose subcutaneously twice daily with meals on ; 200-249 - 2 UNITS 250-299 4 UNITS, 300-349 6 UNITS 350-439 8 UNITS 400+ CALL levetiracetam [Keppra] 1,000 mg Tablet 1,000 mg PO BID tramadol 25 mg Tablet 25 mg PO Q6H PRN (Reason: Severe Pain (Scale Score 7-10)) Rx Instructions: END DATE: 06/03/24 doxycycline monohydrate 100 mg capsule 100 mg PO DAILY 10 Days Qty: 10 0RF Print Language: [place]
[2024-07-02 15:19] LABS: Basophils Percent Auto 0.2 % (0-2); Eosinophils Absolute Auto 0.3 X10*3/uL (0.0-0.4); Eosinophils Percent Auto 1.9 % (0-4); Hematocrit 31.6 % (42.0-52.0); Hemoglobin 9.8 g/dl (14.0-18.0); Imm Gran Abs Auto 0.07 X10*3/uL (0.00-0.03); Imm Gran Pct Auto 0.5 % (0.0-0.4); Lymphocytes Absolute Auto 1.5 X10*3/uL (1.2-4.9); Lymphocytes Percent Auto 11.4 % (20-40); MANUAL DIFF FLAG SCAN; Mean Corpuscular Hemoglobin 23.9 pg (27.0-33.0); Mean Corpuscular Volume 77.1 fL (80.0-98.0); Monocytes Absolute Auto 1.3 X10*3/uL (0.1-1.2); Monocytes Percent Auto 9.5 % (2-11); Neutrophils Percent Auto 76.5 % (45-73); Red Cell Distribution Width 17.3 % (11.0-16.0); SCAN SMEAR FLAG 1
[2024-07-02 15:20] LABS: PLT ABN DIST 1
[2024-07-02 15:26] LABS: Mean Platelet Volume 11.7 fL (9.4-12.4); Platelet Count 224 X10*3/uL (160-400); White Blood Count 13.1 X10*3/uL (4.8-10.8)
[2024-07-02 15:27] LABS: Alanine Aminotransferase 15 U/L (0-40); Albumin Level 3.3 g/dL (3.5-5.0); Anion Gap 20 (12-20); Aspartate Amino Transferase 19 U/L (5-37); B Type Natriuretic Peptide 3199 pg/mL (<100); Bilirubin Total 0.4 mg/dL (0.0-1.0); Blood Urea Nitrogen 63 mg/dL (9-16); Calcium 9.1 mg/dL (8.4-10.2); Carbon Dioxide 27 mmol/L (22-29); Chloride 99 mmol/L (96-108); Creatinine Clr Calc Pharmacy 10.4; Estimated Glomerular Filt Rate 9; Glucose Random 275 mg/dL (60-115); Potassium 4.8 mmol/L (3.3-5.1); SLIDE REVIEW VERIFIED; Sodium 141 mmol/L (135-145)
[2024-07-02 15:43] LABS: Alkaline Phosphatase 116 U/L (39-117)
[2024-07-02 18:24] LABS: Magnesium 1.7 mg/dL (1.6-2.6)
[2024-07-02] MEDS: Morphine Sulfate 4 MG/ML CARTRIDGE IVPUSH (18:44)
[2024-07-02 18:45] LABS: Troponin-I High Sensitivity 69.6 ng/L (<3.5-35.0)
[2024-07-02] MEDS: Nitroglycerin 0.4 MG TAB.SUBL SUBLINGUAL ×3 (18:45→19:18)
--- OUTSIDE RECORDS SUMMARY | 2024-07-02 18:48 | XMS_ITS | Encounter Summary ---
Author Organization [facility] Address [address] [place] [address] Care Team Providers Care Agronomy Professor Name Role Phone Cass Turcios MD Primary Care Provider Encounter Details Date Type Department Care Team (Late st Contact Info) Description 06/06/2024 Lab Requisition [facility] - Main Lab 299 [facility] [place] [address] Laurence Florence MD [address] [place] [address] Cellulitis of right lower limb; End stage [...] Resu lt [facility] [address] [place] [address], [place] [phone] * (ABNORMAL) Complete blood count (06/06/2024 5:35 AM EDT) [facility] WBC 9.3 4.8 - 10.8 K/mcL LAB [...] 8:35 AM EDT [facility] MCH 23.5(L) 27.0 [...] Resu lt [facility] [address] [place] [address], [place] [phone] documented in this encounter Visit Diagnoses Diagnosis Cellulitis of right lower limb End stage renal disease (CMS/HCC V24, CMS/HCC V28) End stage renal disease documented in this encounter Care Teams Agronomy Professor Relationship Specialty Start Date End Date Cass Turcios MD [address] [place] [address] [address] [place] [address] PCP - General Geriatric Medicine 04/02/24 documented as of this encounter
--- OUTSIDE RECORDS SUMMARY | 2024-07-02 18:48 | XMS_ITS | Encounter Summary ---
Author Organization [facility], Address [address] [place] [address] Phone Care Team Providers Care Backer Up Name Role Phone Jade Lewis MD Primary Care Provider + [phone] Encounter Details Date Type Department Care Team (Late st Contact Info) Description 06/26/2024 Orders Only [facility] [address] [place] [address] Car Mcdonald MD [address] [place] [address] [place] [address] Social History Tobacco Use Types Packs/Day Years [...] x 3 29.7(L) 42.0 - 54.0 % [facility] 06/26/2024 06/27/2024 8:1 1 AM EDT Narrative [facility] - 06/27/2024 Unless otherwise specified, test(s) performed at: [facility], [address] [place] [address] MILK TANKER DRIVER: Homero Garcia M.D. For any questions, please call customer service at FREQUENCY:OTHER Resulting Agency Comment Specimen source: Blood us Car Mcdonald MD LAB BLOOD ORDERABLES Final Re sult [facility] See order comments or contact performing lab Unknown, [place] documented in this encounter Visit Diagnoses Not on filedocumented in this encounter Care Teams Backer Up Relationship Specialty Start Date End Date Jade Lewis MD [address] [place] [address] PCP - General Internal Medicine 04/25/22 documented as of this encounter
--- OUTSIDE RECORDS SUMMARY | 2024-07-02 18:48 | XMS_ITS | Encounter Summary ---
Author Organization [facility] Address [address] [place] [address] Phone Care Team Providers Care Greenhouse Superintendent Name Role Phone Jade Lewis MD Primary Care Provider + [phone] Reason for Visit * Reason Comments Med Refill Encounter Details Date Type Department Care Team (Late st Contact Info) Description 07/23/2021 Refill [facility] [address] [place] [phone] Alejandro Santana MD [address] [place] [phone] Social History Tobacco Use Types Packs/Day Years [...] on filedocumented in this encounter Care Teams Greenhouse Superintendent Relationship Specialty Start Date End Date Jade Lewis MD [address] [place] [address] PCP - General Internal Medicine 04/25/22 documented as of this encounter
--- OUTSIDE RECORDS SUMMARY | 2024-07-02 18:48 | XMS_ITS | Encounter Summary ---
Author Organization [facility], Address [address] [place] [address] Phone Care Team Providers Care Circuit Manager Name Role Phone Jade Lewis MD Primary Care Provider + [phone] Encounter Details Date Type Department Care Team (Late st Contact Info) Description 06/26/2024 Treatment [facility], [address] [place] [phone] Arely Hernández, MESS COOK [address] [place] [address] End stage renal disease; Dependence on renal [...] BEAU MARIE, 1955, 69y, M Dialysis Location: [facility] Attending Wood Barrel Reconditioner: Car Mcdonald Service Date: 06/26/2024 Service Provider: [...] dialysis documented in this encounter Care Teams Circuit Manager Relationship Specialty Start Date End Date Jade Lewis MD [address] [place], [place] [id number] PCP - General Internal Medicine 04/25/22 documented as of this encounter
--- OUTSIDE RECORDS SUMMARY | 2024-07-02 18:49 | XMS_ITS | Encounter Summary ---
Author Organization [facility] Address [address] [place] [address] Care Team Providers Care Bilingual Teacher Name Role Phone Cass Turcios MD Primary Care Provider [phone] Encounter Details Date Type Department Care Team (Late st Contact Info) Description 05/30/2024 Lab Requisition [facility] - Main Lab 299 [facility] [place] [address] Laurence Florence MD [address] [place] [address] Chronic respiratory failure with hypoxia (CMS/HCC V24, [...] us Laurence Florence MD LAB MICROBIOLOGY - [facility] MALAIKA HURD Final Result [facility] [address] [place] [address], documented in this encounter Visit Diagnoses Diagnosis Chronic respiratory failure with hypoxia (CMS/HCC V24, CMS/HCC V28) Encounter for orthopedic aftercare following surgical amputation Encounter for surgical aftercare following surgery on the circulatory system Peripheral vascular disease, unspecified ([facility] V24) Peripheral vascular disease, unspecified documented in this encounter Care Teams Bilingual Teacher Relationship Specialty Start Date End Date Cass Turcios MD [address] [place] [address] [address] [place] [address] PCP - General Geriatric Medicine 04/02/24 documented as of this encounter
--- OUTSIDE RECORDS SUMMARY | 2024-07-02 18:49 | XMS_ITS | Encounter Summary ---
Author Organization [facility], Address [address] [place] [address] Phone Care Team Providers Care Bilingual Teacher Aide Name Role Phone Jade Lewis MD Primary Care Provider + [phone] Reason for Visit * Reason Comments Med Refill Encounter Details Date Type Department Care Team ([facility] st Contact Info) Description 10/18/2023 Refill [facility] [address] [place] [phone] Malcolm Taylor MD [address] [place] [address] [place] [phone] Social History Tobacco Use Types Packs/Day Years [...] 10/19/2023 Unless otherwise specified, test(s) performed at: [facility], [address] [place] [address] RAILWAY SWITCH OPERATOR: Homero Garcia M.D. For any questions, please call customer service at FREQUENCY:OTHER Resulting Agency Comment Specimen source: Blood us Car Mcdonald MD LAB BLOOD ORDERABLES Final Re sult [facility] See order comments or contact performing lab Unknown, [place] documented in this encounter Visit Diagnoses Not on filedocumented in this encounter Care Teams Bilingual Teacher Aide Relationship Specialty Start Date End Date Jade Lewis MD [address] [place] [address] PCP - General Internal Medicine 04/25/22 documented as of this encounter
--- OUTSIDE RECORDS SUMMARY | 2024-07-02 18:49 | XMS_ITS | Clinical Summary ---
Author Organization [facility] Address [address] [place] [address] Phone Care Team Providers Care Post Partum Nurse Name Role Phone Cass Turcios MD Primary Care Provider [phone] Allergies No known active allergies Medications Ventolin [...] Care Team Description 06/06/[address] [facility] [address] [place] [address] Laurence Florence MD Cellulitis of right lower limb; End stage renal disease ([facility] V24, [facility]) 05/31/[address] [facility] [address] [facility] [place] [address] Laurence Florence MD End stage renal disease ([facility], [facility] V[facility]); Anemia, unspecified 05/30/[address] [facility] [address] [place] [address] Laurence Florence MD Chronic respiratory failure with hypoxia ([facility], [facility] V[facility]); Encounter for orthopedic aftercare following surgical amputation; Encounter for surgical aftercare following surgery on the circulatory system; Peripheral vascular disease, unspecified ([facility]) 05/30/[address] [facility] [address] [place] [phone] Laurence Florence MD Chronic respiratory failure with hypoxia ([facility], [facility] V[facility]); Encounter for orthopedic aftercare following surgical amputation; Encounter for surgical aftercare following surgery on the circulatory system; Peripheral vascular disease, unspecified ([facility]) 05/28/[address] [facility] [address] [place] [phone] Laurence Florence MD Anemia, unspecified; End stage renal disease ([facility], [facility] V[facility]); Unspecified asthma, uncomplicated 05/24/[address] [facility] [address] [place] [phone] Laurence Florence MD Chronic combined systolic (congestive) and diastolic (congestive) heart failure ([facility], [facility] V28); Type 2 diabetes mellitus without complications ([facility], [facility] V28); End stage renal disease ([facility], [facility] V28) 05/21/[address] [facility] [address] [place] [phone] Laurence Florence MD Chronic combined systolic (congestive) and diastolic (congestive) heart failure ([facility], [facility] V28); End stage renal disease ([facility], [facility] V28) 05/20/[address] [facility] [address] [place] [phone] Laurence Florence MD Elevated white blood cell count, unspecified 05/18/[address] [facility] [address] [place] [phone] Elsy Christina PA Unspecified systolic (congestive) heart failure ([facility], [facility] V28); Type 2 diabetes mellitus without complications ([facility], [facility] V28); End stage renal disease ([facility], [facility] V28) 05/17/2024 Lab Requisition [facility] [address] [facility] [place] [address] Laurence Florence MD Type 2 diabetes mellitus without complications ([facility], [facility] V28); End stage renal disease ([facility], [facility] V28) from Last 3 Months Surgical History Surgery Date Site/Laterality Comments TOE AMPUTATION IR DIALYSIS CATH INSERT VASCULAR ACCESS Medical History Medical History Date Comments ESRD (end stage renal disease) on dialysis ([facility] V24, [facility]28) MWF Hypertension Hyperlipidemia Gouty arthritis Diabetes mellitus ([facility], [facility] V28) GERD (gastroesophageal reflux disease) COPD (chronic obstructive pulmonary disease) ([facility] V24, [facility] V28) Social History Tobacco Use Types Packs/Day [...] care for your loved ones. For example, special needs child caregiver or elderly care for an [...] EDT Type 2 diabetes mellitus without complications ([facility]/HCC) End stage renal disease (CMS/HCC) from Last 3 Months Results * (ABNORMAL) Complete blood count (06/06/2024 5:35 AM EDT) Only the most recent of5 resultswithin the time period is included. WBC 9.3 4.8 - 10.8 K/mcL LAB HEMETOLOGY METHOD 06/06/2024 8:35 AM [facility] RBC 3.20(L) 4.50 - 5.50 M/mcL LAB HEMETOLOGY METHOD 06/06/2024 8:35 AM [facility] Hemoglobin 7.6(L) 13.5 - 17.5 g/dL LAB HEMETOLOGY METHOD 06/06/2024 8:35 AM [facility] Hematocrit 26.2(L) 42.0 - 54.0 % LAB HEMETOLOGY METHOD 06/06/2024 8:35 AM [facility] MCV 80.9 79.0 - 98.0 FL LAB HEMETOLOGY METHOD 06/06/2024 8:35 AM [facility] MCH 23.5(L) 27.0 - 32.0 pcg LAB HEMETOLOGY METHOD 06/06/2024 8:35 AM EDT [facility] MCHC 29.0(L) 32.0 - 37.0 g/dL LAB HEMETOLOGY METHOD 06/06/2024 8:35 AM EDT [facility] RDW 16.8(H) 11.0 - 15.0 % LAB HEMETOLOGY METHOD 06/06/2024 8:35 AM EDT [facility] Platelets 264 130 - 400 K/mcL LAB HEMETOLOGY METHOD 06/06/2024 8:35 AM EDT [facility] MPV 12.3(H) 7.0 - 11.0 FL LAB HEMETOLOGY METHOD 06/06/2024 8:35 AM EDT [facility] NRBC 0.0 <1.0 % LAB HEMETOLOGY METHOD 06/06/2024 8:35 AM EDT [facility] NRBC Absolute 0.00 <0.10 K/mcL LAB HEMETOLOGY METHOD 06/06/2024 8:35 AM EDT [facility] Blood Venous blood specimen / Unknown Venipuncture / Unknown 06/06/2024 5:35 AM EDT 06/06/2024 8:10 AM EDT us Laurence Florence MD LAB BLOOD ORDERABLES Final Resu lt [facility] [address] [place] [address], * (ABNORMAL) Basic metabolic panel (06/06/2024 5:35 AM EDT) Only the most recent of6 resultswithin the time period is included. Sodium 139 133 - 145 mmol/L LAB CHEMISTRY METHOD 06/06/2024 8:59 AM EDT [facility] Potassium 4.3 3.5 - 5.5 mmol/L LAB CHEMISTRY METHOD 06/06/2024 8:59 AM [facility] Chloride 106 96 - 110 mmol/L LAB CHEMISTRY METHOD 06/06/2024 8:59 AM [facility] CO2 27 21 - 32 mmol/L LAB CHEMISTRY METHOD 06/06/2024 8:59 AM [facility] Anion Gap 6 3 - 11 LAB CHEMISTRY METHOD 06/06/2024 8:59 AM [facility] Glucose 162(H) 70 - 100 mg/dL LAB CHEMISTRY METHOD 06/06/2024 8:59 AM [facility] BUN 28(H) 5 - 25 mg/dL LAB CHEMISTRY METHOD 06/06/2024 8:59 AM [facility] Creatinine 3.78(H) 0.70 - 1.30 mg/dL LAB CHEMISTRY METHOD 06/06/2024 8:59 AM [facility] eGFR 17(L) >=60 mL/min/1. 73m2 LAB CHEMISTRY METHOD 06/06/2024 8:59 AM [facility] Comment:Calculation based on the??Chronic Kidney Disease Epidemiology Collaboration (CKD-EPI) equation refit??without adjustment for race. BUN/Creatinine Ratio 7.4 LAB CHEMISTRY METHOD 06/06/2024 8:59 AM [facility] Calcium 9.1 8.5 - 10.5 mg/dL LAB CHEMISTRY METHOD 06/06/2024 8:59 AM [facility] Blood Venous blood specimen / Unknown Venipuncture / Unknown 06/06/2024 5:35 AM EDT 06/06/2024 8:10 AM EDT us Laurence Florence MD LAB BLOOD ORDERABLES Final Resu lt [facility] [address] [place] [address], [place] [phone] * (ABNORMAL) CBC auto differential (05/31/2024 6:09 AM EDT) Only the most recent of4 resultswithin the time period is included. WBC 10.9(H) 4.8 - 10.8 K/mcL LAB HEMETOLOGY METHOD 05/31/2024 10:13 AM [facility] RBC 3.20(L) 4.50 - 5.50 M/mcL LAB HEMETOLOGY METHOD 05/31/2024 10:13 AM [facility] Hemoglobin 7.7(L) 13.5 - 17.5 g/dL LAB HEMETOLOGY METHOD 05/31/2024 10:13 AM [facility] Hematocrit 26.1(L) 42.0 - 54.0 % LAB HEMETOLOGY METHOD 05/31/2024 10:13 AM [facility] MCV 81.8 79.0 - 98.0 FL LAB HEMETOLOGY METHOD 05/31/2024 10:13 AM [facility] MCH 24.1(L) 27.0 - 32.0 pcg LAB HEMETOLOGY METHOD 05/31/2024 10:13 AM [facility] MCHC 29.5(L) 32.0 - 37.0 g/dL LAB HEMETOLOGY METHOD 05/31/2024 10:13 AM [facility] RDW 17.8(H) 11.0 - 15.0 % LAB HEMETOLOGY METHOD 05/31/2024 10:13 AM [facility] Platelets 227 130 - 400 K/mcL LAB HEMETOLOGY METHOD 05/31/2024 10:13 AM [facility] MPV 10.6 7.0 - 11.0 FL LAB HEMETOLOGY METHOD 05/31/2024 10:13 AM [facility] NRBC 0.0 <1.0 % LAB HEMETOLOGY METHOD 05/31/2024 10:13 AM [facility] NRBC Absolute 0.00 <0.10 K/mcL LAB HEMETOLOGY METHOD 05/31/2024 10:13 AM [facility] Neutrophils Relative 69.5 % LAB HEMETOLOGY METHOD 05/31/2024 10:13 AM [facility] Lymphocytes Relative 19.2 % LAB HEMETOLOGY METHOD 05/31/2024 10:13 AM [facility] Monocytes Relative 8.4 % LAB HEMETOLOGY METHOD 05/31/2024 10:13 AM [facility] Eosinophils Relative 1.8 % LAB HEMETOLOGY METHOD 05/31/2024 10:13 AM [facility] Basophils Relative 0.5 % LAB HEMETOLOGY METHOD 05/31/2024 10:13 AM [facility] Immature Granulocytes Relative 0.6 % LAB HEMETOLOGY METHOD 05/31/2024 10:13 AM [facility] Neutrophils Absolute 7.60(H) 1.50 - 7.00 K/mcL LAB HEMETOLOGY METHOD 05/31/2024 10:13 AM [facility] Lymphocytes Absolute 2.10 1.00 - 5.00 K/mcL LAB HEMETOLOGY METHOD 05/31/2024 10:13 AM [facility] Monocytes Absolute 0.92 0.20 - 1.00 K/mcL LAB HEMETOLOGY METHOD 05/31/2024 10:13 AM [facility] Eosinophils Absolute 0.20 0.00 - 0.50 K/mcL LAB HEMETOLOGY METHOD 05/31/2024 10:13 AM [facility] Basophils Absolute 0.05 0.00 - 0.20 K/mcL LAB HEMETOLOGY METHOD 05/31/2024 10:13 AM [facility] Immature Granulocytes Absolute 0.07(H) 0.00 - 0.03 K/mcL LAB HEMETOLOGY METHOD 05/31/2024 10:13 AM EDT [facility] Blood Venous blood specimen / Unknown Venipuncture / Unknown 05/31/2024 6:09 AM EDT 05/31/2024 9:24 AM EDT us Laurence Florence MD LAB BLOOD ORDERABLES Final Resu lt Performing Organization Address [facility]/ZIP Co de Phone Number [facility] [address] [place] [address], [place] [phone] * Culture blood (05/30/2024 7:41 AM EDT) Only the most recent of2 resultswithin the time period is included. Culture, Blood No growth at 5 days LAB MICROBIOLOGY METHOD 06/04/2024 9:01 AM EDT [facility] Blood Venipuncture / Unknown 05/30/2024 7:41 AM EDT 05/30/2024 8:14 AM EDT us Laurence Florence MD LAB MICROBIOLOGY - GENERAL ORDE RABLES Final Result Performing Organization Address [facility] de Phone Number [facility] [address] [place] [address], [place] [phone] * (ABNORMAL) Sedimentation rate (05/30/2024 7:36 AM EDT) Sed Rate >130(H) 0 - 20 mm/hr LAB HEMETOLOGY METHOD 05/30/2024 8:57 AM EDT [facility] Blood Venous blood specimen / Unknown Venipuncture / Unknown 05/30/2024 7:36 AM EDT 05/30/2024 8:11 AM EDT Narrative [facility] - 05/30/2024 8:57 AM EDT Rechecked. us Laurence Florence MD LAB BLOOD ORDERABLES Final Resu lt Performing Organization Address [facility]/ZIP Co de Phone Number [facility] [address] [place] [address], [place] [phone] * (ABNORMAL) C-reactive protein (05/30/2024 7:36 AM EDT) [facility] C-Reactive Protein 11.60(H) <=0.50 mg/dL LAB CHEMISTRY METHOD 05/30/2024 8:51 AM EDT [facility] Blood Venous blood specimen / Unknown Venipuncture / Unknown 05/30/2024 7:36 AM EDT 05/30/2024 8:11 AM EDT us Laurence Florence MD LAB BLOOD ORDERABLES Final Resu lt Performing Organization Address [facility] Co de Phone Number [facility] [address] [place] [address], [place] [phone] * Lactate (05/30/2024 7:36 AM EDT) [facility] Lactate 0.6 0.4 - 2.0 mmol/L LAB CHEMISTRY METHOD 05/30/2024 8:47 AM EDT [facility] Blood Venous blood specimen / Unknown Venipuncture / Unknown 05/30/2024 7:36 AM EDT 05/30/2024 8:11 AM EDT us Laurence Florence MD LAB BLOOD ORDERABLES Final Resu lt Performing Organization Address [facility]/ZIP Co de Phone Number [facility] [address] [place] [address], [place] [phone] * (ABNORMAL) Comprehensive metabolic panel (05/30/2024 7:36 AM EDT) Only the most recent of2 resultswithin the time period is included. [facility] Sodium 140 133 - 145 mmol/L LAB CHEMISTRY METHOD 05/30/2024 9:08 AM [facility] Potassium 4.2 3.5 - 5.5 mmol/L LAB CHEMISTRY METHOD 05/30/2024 9:08 AM [facility] Chloride 104 96 - 110 mmol/L LAB CHEMISTRY METHOD 05/30/2024 9:08 AM [facility] CO2 28 21 - 32 mmol/L LAB CHEMISTRY METHOD 05/30/2024 9:08 AM [facility] Anion Gap 8 3 - 11 LAB CHEMISTRY METHOD 05/30/2024 9:08 AM [facility] Glucose 77 70 - 100 mg/dL LAB CHEMISTRY METHOD 05/30/2024 9:08 AM [facility] BUN 35(H) 5 - 25 mg/dL LAB CHEMISTRY METHOD 05/30/2024 9:08 AM [facility] Creatinine 5.30(H) 0.70 - 1.30 mg/dL LAB CHEMISTRY METHOD 05/30/2024 9:08 AM [facility] eGFR 11(L) >=60 mL/min/1. 73m2 LAB CHEMISTRY METHOD 05/30/2024 9:08 AM [facility] Comment:Calculation based on the??Chronic Kidney Disease Epidemiology Collaboration (CKD-EPI) equation refit??without adjustment for race. BUN/Creatinine Ratio 6.6 LAB CHEMISTRY METHOD 05/30/2024 9:08 AM [facility] Calcium 9.0 8.5 - 10.5 mg/dL LAB CHEMISTRY METHOD 05/30/2024 9:08 AM [facility] AST (SGOT) 10 10 - 42 unit/L LAB CHEMISTRY METHOD 05/30/2024 9:08 AM [facility] ALT (SGPT) 13 10 - 60 unit/L LAB CHEMISTRY METHOD 05/30/2024 9:08 AM EDT [facility] Alkaline Phosphatase 141(H) 42 - 121 unit/L LAB CHEMISTRY METHOD 05/30/2024 9:08 AM EDT [facility] Total Protein 6.3 6.0 - 8.0 g/dL LAB CHEMISTRY METHOD 05/30/2024 9:08 AM EDT [facility] Albumin 2.5(L) 3.2 - 5.0 g/dL LAB CHEMISTRY METHOD 05/30/2024 9:08 AM EDT [facility] Total Bilirubin 0.5 0.0 - 1.4 mg/dL LAB CHEMISTRY METHOD 05/30/2024 9:08 AM EDT [facility] Blood Venous blood specimen / Unknown Venipuncture / Unknown 05/30/2024 7:36 AM EDT 05/30/2024 8:11 AM EDT us Laurence Florence MD LAB BLOOD ORDERABLES Final Resu lt Performing Organization Address City/[facility]/ZIP Co de Phone Number [facility] [address] [place] [address], [place] [phone] * (ABNORMAL) Magnesium (05/29/2024 5:09 AM EDT) Magnesium 1.8(L) 1.9 - 2.6 mg/dL LAB CHEMISTRY METHOD 05/29/2024 9:20 AM EDT [facility] Blood Venous blood specimen / Unknown Venipuncture / Unknown 05/29/2024 5:09 AM EDT 05/29/2024 8:42 AM EDT us Laurence Florence MD LAB BLOOD ORDERABLES Final Resu lt [facility] [address] [place] [address], [place] [phone] * (ABNORMAL) Renal function panel (05/29/2024 5:09 AM EDT) Sodium 135 133 - 145 mmol/L LAB CHEMISTRY METHOD 05/29/2024 10:03 AM [facility] Potassium 4.7 3.5 - 5.5 mmol/L LAB CHEMISTRY METHOD 05/29/2024 10:03 AM [facility] Chloride 99 96 - 110 mmol/L LAB CHEMISTRY METHOD 05/29/2024 10:03 AM [facility] CO2 27 21 - 32 mmol/L LAB CHEMISTRY METHOD 05/29/2024 10:03 AM [facility] Anion Gap 9 3 - 11 LAB CHEMISTRY METHOD 05/29/2024 10:03 AM [facility] Glucose 22(LL) 70 - 100 mg/dL LAB CHEMISTRY METHOD 05/29/2024 10:03 AM [facility] BUN 60(H) 5 - 25 mg/dL LAB CHEMISTRY METHOD 05/29/2024 10:03 AM [facility] Creatinine 7.71(H) 0.70 - 1.30 mg/dL LAB CHEMISTRY METHOD 05/29/2024 10:03 AM [facility] eGFR 7(L) >=60 mL/min/1. 73m2 LAB CHEMISTRY METHOD 05/29/2024 10:03 AM [facility] Comment:Calculation based on the??Chronic Kidney Disease Epidemiology Collaboration (CKD-EPI) equation refit??without adjustment for race. BUN/Creatinine Ratio 7.8 LAB CHEMISTRY METHOD 05/29/2024 10:03 AM [facility] Albumin 2.4(L) 3.2 - 5.0 g/dL LAB CHEMISTRY METHOD 05/29/2024 10:03 AM [facility] Calcium 8.7 8.5 - 10.5 mg/dL LAB CHEMISTRY METHOD 05/29/2024 10:03 AM [facility] Phosphorus 4.7(H) 2.5 - 4.5 mg/dL LAB CHEMISTRY METHOD 05/29/2024 10:03 AM EDT [facility] Blood Venous blood specimen / Unknown Venipuncture / Unknown 05/29/2024 5:09 AM EDT 05/29/2024 8:42 AM EDT us Laurence Florence MD LAB BLOOD ORDERABLES Final Resu lt Performing Organization Address [facility] Co de Phone Number [facility] [address] [place] [address], [place] [phone] * (ABNORMAL) Hemoglobin A1c (05/18/2024 7:20 AM EDT) Only the most recent of2 resultswithin the time period is included. Hemoglobin A1C 7.2(H) <6.5 % LAB CHEMISTRY METHOD 05/19/2024 12:06 PM EDT [facility] Mean Bld Glu Estim. 160 mg/dL LAB CHEMISTRY METHOD 05/19/2024 12:06 PM EDT [facility] Blood Venous blood specimen / Unknown Venipuncture / Unknown 05/18/2024 7:20 AM EDT 05/18/2024 9:58 AM EDT us Elsy MONTERO LAB BLOOD ORDERABLES Final Re sult Performing Organization Address [facility] Co de Phone Number [facility] [address] [place] [address], [place] [phone] from Last 3 Months Insurance MEDICARE ADVANTAGE [facility] MEDICARE MEDICAID - [place] Advance Directives Documents on File Type Date Recorded Patient Early Childhood Educator Aide Expl anation Advance Directives and Living Will 03/29/2024 1:25 PM PROXY Advance Directives and Living Will 03/29/2024 9:18 AM Nestor Garry [facility] Care Proxy Advance Directives and Living Will [...] Nestor Marie Health Care Agent Beau Marie [facility] re Agent Care Teams Post Partum Nurse Relationship Specialty Start Date End Date Cass Turcios MD [address] [place] [address] [address] [place] [address] PCP - General Geriatric Medicine 04/02/24
--- OUTSIDE RECORDS SUMMARY | 2024-07-02 18:49 | XMS_ITS | Encounter Summary ---
Author Organization [facility], Address [address] [place] [address] Phone Care Team Providers Care Field Human Resources Manager Name Role Phone Jade Lewis MD Primary Care Provider [phone] Encounter Details Date Type Department Care Team (Late st Contact Info) Description 10/28/2019 Orders Only [facility] [address] [phone] [place] [address] [place] [phone] Social History Tobacco Use Types Packs/Day Years [...] filedocumented in this encounter Care Teams Field Human Resources Manager Relationship Specialty Start Date End Date Jade Lewis MD [address] [place] [address] PCP - General Internal Medicine 04/25/22 documented as of this encounter
--- OUTSIDE RECORDS SUMMARY | 2024-07-02 18:49 | XMS_ITS | Encounter Summary ---
Author Organization [facility] Address [address] [facility] [facility] [place] [address] Phone Care Team Providers Care Specialized Language Instructor Name Role Phone Jade Lewis MD Primary Care Provider + [phone] Reason for Visit * Reason Onset Date Comments Med Refill 04/19/2022 Encounter Details Date Type Department Care Team (Late st Contact Info) Description 04/19/2022 Refill [facility] [address] [place] [phone] Loida Madsen Social History Tobacco Use Types [...] on filedocumented in this encounter Care Teams Specialized Language Instructor Relationship Specialty Start Date End Date Jade Lewis MD [address] [place] [id number] PCP - General Internal Medicine 04/25/22 documented as of this encounter
--- OUTSIDE RECORDS SUMMARY | 2024-07-02 18:49 | XMS_ITS | Encounter Summary ---
Author Organization [facility] Address [address] [place] [address] Care Team Providers Care Ethics Officer Name Role Phone Cass Turcios MD Primary Care Provider [phone] Encounter Details Date Type Department Care Team (Late st Contact Info) Description 03/25/2024 Lab Requisition [facility] - Main Lab 299 [facility] [place] [address] Cass Turcios MD [address] [place] [address] Anemia, unspecified; Chronic diastolic (congestive) heart failure [...] for your loved ones. For example, child nurse or elderly care for an older adult? [...] mmol/L LAB CHEMISTRY METHOD 03/25/2024 2:44 PM [facility] Potassium 7.3(HH) 3.5 - 5.5 mmol/L LAB CHEMISTRY METHOD 03/25/2024 2:44 PM [facility] Chloride 101 96 - 110 mmol/L LAB CHEMISTRY METHOD 03/25/2024 2:44 PM [facility] CO2 15(L) 21 - 32 mmol/L LAB CHEMISTRY METHOD 03/25/2024 2:44 PM [facility] Anion Gap 17(H) 3 - 11 LAB CHEMISTRY METHOD 03/25/2024 2:44 PM [facility] Glucose 62(L) 70 - 100 mg/dL LAB CHEMISTRY METHOD 03/25/2024 2:44 PM [facility] BUN 112(H) 5 - 25 mg/dL LAB CHEMISTRY METHOD 03/25/2024 2:44 PM [facility] Creatinine 12.80(HH) 0.70 - 1.30 mg/dL LAB CHEMISTRY METHOD 03/25/2024 2:44 PM [facility] eGFR 4(L) >=60 mL/min/1 .73m2 LAB CHEMISTRY METHOD 03/25/2024 2:44 PM [facility] Comment:Calculation based on the??Chronic Kidney Disease Epidemiology Collaboration (CKD-EPI) equation refit??without adjustment for race. BUN/Creatinine Ratio 8.8 LAB CHEMISTRY METHOD 03/25/2024 2:44 PM [facility] Calcium 8.8 8.5 - 10.5 mg/dL LAB CHEMISTRY METHOD 03/25/2024 2:44 PM EST [facility] AST (SGOT) 21 10 - 42 unit/L LAB CHEMISTRY METHOD 03/25/2024 2:44 PM [facility] ALT (SGPT) 9(L) 10 - 60 unit/L LAB CHEMISTRY METHOD 03/25/2024 2:44 PM [facility] Alkaline Phosphatase 172(H) 42 - 121 unit/L LAB CHEMISTRY METHOD 03/25/2024 2:44 PM [facility] Total Protein 6.9 6.0 - 8.0 g/dL LAB CHEMISTRY METHOD 03/25/2024 2:44 PM [facility] Albumin 2.7(L) 3.2 - 5.0 g/dL LAB CHEMISTRY METHOD 03/25/2024 2:44 PM [facility] Total Bilirubin 0.4 0.0 - 1.4 mg/dL LAB CHEMISTRY METHOD 03/25/2024 2:44 PM [facility] Blood Venous blood specimen / Unknown Venipuncture / Unknown 03/25/2024 5:09 AM EST 03/25/2024 11:52 AM EST us Cass Turcios MD LAB BLOOD ORDERABLES Final Resul t [facility] [address] [place] [address], * (ABNORMAL) Complete blood count (03/25/2024 5:09 AM EST) WBC 14.1(H) 4.8 - 10.8 K/mcL LAB HEMETOLOGY METHOD 03/25/2024 2:27 PM EST [facility] RBC 4.60 4.50 - 5.50 M/mcL LAB HEMETOLOGY METHOD 03/25/2024 2:27 PM [facility] Hemoglobin 10.5(L) 13.5 - 17.5 g/dL LAB HEMETOLOGY METHOD 03/25/2024 2:27 PM [facility] Hematocrit 35.9(L) 42.0 - 54.0 % LAB HEMETOLOGY METHOD 03/25/2024 2:27 PM [facility] MCV 77.7(L) 79.0 - 98.0 FL LAB HEMETOLOGY METHOD 03/25/2024 2:27 PM [facility] MCH 22.7(L) 27.0 - 32.0 pcg LAB HEMETOLOGY METHOD 03/25/2024 2:27 PM [facility] MCHC 29.2(L) 32.0 - 37.0 g/dL LAB HEMETOLOGY METHOD 03/25/2024 2:27 PM [facility] RDW 17.5(H) 11.0 - 15.0 % LAB HEMETOLOGY METHOD 03/25/2024 2:27 PM [facility] Platelets 254 130 - 400 K/mcL LAB HEMETOLOGY METHOD 03/25/2024 2:27 PM [facility] MPV LAB HEMETOLOGY METHOD 03/25/2024 2:27 PM [facility] Comment:Not Measured NRBC 0.0 <1.0 % LAB HEMETOLOGY METHOD 03/25/2024 2:27 PM [facility] NRBC Absolute 0.00 <0.10 K/mcL LAB HEMETOLOGY METHOD 03/25/2024 2:27 PM [facility] Blood Venous blood specimen / Unknown Venipuncture / Unknown 03/25/2024 5:09 AM EST 03/25/2024 11:52 AM EST Cass Turcios MD LAB BLOOD ORDERABLES Final Resul t [facility] LAB [address] [place] [address], documented in this encounter Visit Diagnoses Diagnosis Anemia, unspecified Chronic diastolic (congestive) heart failure ([facility] V24, [facility] V28) Other pericardial effusion (noninflammatory) End stage renal disease ([facility] V24, [facility] V28) End stage renal disease documented in this encounter Additional Health Concerns Infection Onset Date Last Indicated Resolved Time Respiratory Rule-Out 03/25/2024 03/25/2024 025 8:14 PM EST documented as of this encounter Care Teams Ethics Officer Relationship Specialty Start Date End Date Cass Turcios MD [address] [facility] [address] [place] [address] PCP - General Geriatric Medicine 04/02/24 documented as of this encounter
--- OUTSIDE RECORDS SUMMARY | 2024-07-02 18:49 | XMS_ITS | Encounter Summary ---
Author Organization [facility] Address [address] [place] [address] Care Team Providers Care Advanced Practice Rn Name Role Phone Cass Turcios MD Primary Care Provider [phone] Encounter Details Date Type Department Care Team (Latest Contact Info) Description 05/28/2024 Lab Requisition [facility] - Main Lab 299 [facility] [place] [address] Laurence Florence MD [address] [place] [address] Anemia, unspecified; End stage renal disease (CMS/HCC [...] care for your loved ones. For example, summer child caregiver or elderly care for an [...] (05/29/2024 5:09 AM EDT) Pathologist [facility] Magnesium 1.8(L) 1.9 - 2.6 mg/dL LAB CHEMISTRY METHOD 05/29/2024 9:20 AM EDT [facility] Blood Venous blood specimen / Unknown Venipuncture / Unknown 05/29/2024 5:09 AM EDT 05/29/2024 8:42 AM EDT us Laurence Florence MD LAB BLOOD ORDERABLES Final Resu lt [facility] [address] [place] [address], * (ABNORMAL) Complete blood count (05/29/2024 5:09 AM EDT) [facility] WBC 10.8 4.8 - 10.8 K/mcL [...] FL LAB HEMETOLOGY METHOD [facility] MCH 23.6(L) 27.0 - 32.0 pcg LAB HEMETOLOGY METHOD 05/29/2024 9:01 AM [facility] MCHC 28.9(L) 32.0 - 37.0 g/dL LAB HEMETOLOGY METHOD 05/29/2024 9:01 AM [facility] RDW 18.2(H) 11.0 - 15.0 % LAB HEMETOLOGY METHOD 05/29/2024 9:01 [facility] Platelets 263 130 - 400 K/mcL LAB HEMETOLOGY METHOD 05/29/2024 9:01 AM [facility] MPV 11.2(H) 7.0 - 11.0 FL LAB HEMETOLOGY METHOD 05/29/2024 9:01 [facility] NRBC 0.0 <1.0 % LAB HEMETOLOGY METHOD 05/29/2024 9:01 AM [facility] NRBC Absolute 0.00 <0.10 K/mcL LAB HEMETOLOGY METHOD 05/29/2024 9:01 AM [facility] Blood Venous blood specimen / Unknown Venipuncture / Unknown 05/29/2024 5:09 AM EDT 05/29/2024 8:42 AM EDT us Laurence Florence MD LAB BLOOD ORDERABLES Final Resu lt [facility] [address] [place] [address], * (ABNORMAL) Renal function panel (05/29/2024 5:09 AM EDT) Sodium 135 133 - 145 mmol/L LAB CHEMISTRY METHOD 05/29/2024 10:03 AM T [facility] Potassium 4.7 3.5 - 5.5 mmol/L LAB CHEMISTRY METHOD 05/29/2024 10:03 AM [facility] Chloride 99 96 - 110 mmol/L LAB CHEMISTRY METHOD 05/29/2024 10:03 AM [facility] CO2 [...] MD LAB BLOOD ORDERABLES Final Resu lt [facility] [address] [place] [address], documented in this encounter Visit Diagnoses Diagnosis Anemia, unspecified End stage renal disease (CMS/HCC V24, CMS/HCC V28) End stage renal disease Unspecified asthma, uncomplicated documented in this encounter Care Teams Advanced Practice Rn Relationship Specialty Start Date End Date Cass Turcios MD [address] [facility] [address] [place] [address] PCP - General Geriatric Medicine 04/02/24 documented as of this encounter
--- OUTSIDE RECORDS SUMMARY | 2024-07-02 18:49 | XMS_ITS | Encounter Summary ---
Author Organization [facility] Address [address] [place] [address] Care Team Providers Care Electronic Calibration Technician Name Role Phone Cass Turcios MD Primary Care Provider Encounter Details Date Type Department Care Team (Latest Contact Info) Description 05/24/2024 Lab Requisition [facility] - Main Lab 299 [facility] [place] [address] Laurence Florence MD [address] [place] [address] Chronic combined systolic (congestive) and diastolic (congestive) [...] for your loved ones. For example, child psychology teacher or elderly care for an older [...] mellitus without complications End stage renal disease ([facility]/HCC) BASIC METABOLIC PANEL Routine 05/24/2024 5:56 AM EDT Chronic combined systolic (congestive) and diastolic (congestive) heart failure Type 2 diabetes mellitus without complications End stage renal disease ([facility]/HCC) documented in this encounter Results * (ABNORMAL) CBC auto differential (05/24/2024 5:56 AM EDT) [facility] WBC 9.3 4.8 - 10.8 K/mcL LAB [...] LAB HEMETOLOGY METHOD 05/24/2024 9:31 AM EDT [facility] Eosinophils Absolute 0.42 0.00 - 0.50 K/mcL LAB HEMETOLOGY METHOD 05/24/2024 9:31 AM EDT [facility] Basophils Absolute 0.04 0.00 - 0.20 K/mcL LAB HEMETOLOGY METHOD 05/24/2024 9:31 AM EDT [facility] Immature Granulocytes Absolute 0.06(H) 0.00 - 0.03 K/mcL LAB HEMETOLOGY METHOD 05/24/2024 9:31 AM EDT [facility] Blood Venous blood specimen / Unknown Venipuncture / Unknown 05/24/2024 5:56 AM EDT 05/24/2024 8:41 AM EDT us Laurence Florence MD LAB BLOOD ORDERABLES Final Resu lt [facility] [address] [place] [address], [place] [phone] * (ABNORMAL) Basic metabolic panel (05/24/2024 5:56 [...] LAB CHEMISTRY METHOD 05/24/2024 9:53 AM EDT [facility] BUN 67(H) 5 - 25 mg/dL LAB CHEMISTRY METHOD 05/24/2024 9:53 AM EDT [facility] Creatinine 7.92(H) 0.70 - 1.30 mg/dL LAB CHEMISTRY METHOD 05/24/2024 9:53 AM EDT [facility] eGFR 7(L) >=60 mL/min/1. 73m2 LAB CHEMISTRY METHOD 05/24/2024 9:53 AM EDT [facility] Comment:Calculation based on the??Chronic Kidney Disease Epidemiology Collaboration (CKD-EPI) equation refit??without adjustment for race. BUN/Creatinine Ratio 8.5 LAB CHEMISTRY METHOD 05/24/2024 9:53 AM EDT [facility] Calcium 8.6 8.5 - 10.5 mg/dL LAB CHEMISTRY METHOD 05/24/2024 9:53 AM EDT [facility] Blood Venous blood specimen / Unknown Venipuncture / Unknown 05/24/2024 5:56 AM EDT 05/24/2024 8:41 AM EDT us Laurence Florence MD LAB BLOOD ORDERABLES Final Resu lt [facility] [address] [place] [address], documented in this encounter Visit Diagnoses Diagnosis Chronic combined systolic (congestive) and diastolic (congestive) heart failure (CMS/HCC V24, CMS/HCC V28) Type 2 diabetes mellitus without complications (CMS/HCC V24, CMS/HCC V28) End stage renal disease (CMS/HCC V24, CMS/HCC V28) End stage renal disease documented in this encounter Care Teams Electronic Calibration Technician Relationship Specialty Start Date End Date Cass Turcios MD [address] [place], [place] [id number] [place] [address] PCP - General Geriatric Medicine 04/02/24 documented as of this encounter
--- OUTSIDE RECORDS SUMMARY | 2024-07-02 18:49 | XMS_ITS | Encounter Summary ---
Author Organization [facility], Address [address] [place] [address] Phone Care Team Providers Care Sales Support Associate Name Role Phone Jade Lewis MD Primary Care Provider [phone] Reason for Visit * Reason Comments Med Refill Encounter Details Date Type Department Care Team (Late st Contact Info) Description 09/17/2022 Refill [facility] [address] [place] [phone] Malcolm Taylor MD [address] [place] [address] [place] [address] Social History Tobacco Use Types Packs/Day Years [...] on filedocumented in this encounter Care Teams Sales Support Associate Relationship Specialty Start Date End Date Jade Lewis MD [address] [place] [address] PCP - General Internal Medicine 04/25/22 documented as of this encounter
--- OUTSIDE RECORDS SUMMARY | 2024-07-02 18:49 | XMS_ITS | Encounter Summary ---
Author Organization [facility], Address [address] [place] [address] Phone Care Team Providers Care Radio Station Manager Name Role Phone Jade Lewis MD Primary Care Provider [phone] Reason for Visit * Reason Comments Med Refill Encounter Details Date Type Department Care Team (Late st Contact Info) Description 12/24/2022 Refill [facility] [address] [place] [phone] Car Mcdonald MD [facility] [place] [address] Social History Tobacco Use Types Packs/Day Years [...] on filedocumented in this encounter Care Teams Radio Station Manager Relationship Specialty Start Date End Date Jade Lewis MD [address] [place] [address] PCP - General Internal Medicine 04/25/22 documented as of this encounter
--- OUTSIDE RECORDS SUMMARY | 2024-07-02 18:49 | XMS_ITS | Encounter Summary ---
Author Organization [facility], Address [address] [place] [address] Phone Care Team Providers Care Citrus Fruit Packer Name Role Phone Jade Lewis MD Primary Care Provider [phone] Reason for Visit * Reason Comments Med Refill Encounter Details Date Type Department Care Team (Late st Contact Info) Description 10/27/2023 Refill [facility] [address] [place] [phone] Malcolm Taylor MD [address] [place] [address] [place] [address] Social History Tobacco Use Types Packs/Day Years [...] on filedocumented in this encounter Care Teams Citrus Fruit Packer Relationship Specialty Start Date End Date Jade Lewis MD [address] [place] [address] PCP - General Internal Medicine 04/25/22 documented as of this encounter
--- OUTSIDE RECORDS SUMMARY | 2024-07-02 18:49 | XMS_ITS | Clinical Summary ---
Author Organization [employer] Address [address] [place] [address] [address] [place] [address] Care Team Providers Care Belt Knife Feeder Name Role Phone Unavailable Primary Care Provider [...]
--- OUTSIDE RECORDS SUMMARY | 2024-07-02 18:49 | XMS_ITS | Encounter Summary ---
Author Organization [facility] Address [address] [place] [address] Care Team Providers Care Fisher Trap Name Role Phone Cass Turcios MD Primary Care Provider [phone] Encounter Details Date Type Department Care Team (Late st Contact Info) Description 05/30/2024 Lab Requisition [facility] - Main Lab [address] [facility] [place] [address] Laurence Florence MD [address] [place] [address] Chronic respiratory failure with hypoxia (CMS/HCC V24, [...] LAB MICROBIOLOGY METHOD 06/04/2024 9:01 AM EDT [facility] Blood Venipuncture / Unknown 05/30/2024 7:36 AM EDT 05/30/2024 8:11 AM EDT us Laurence Florence MD LAB MICROBIOLOGY - GENERAL MALAIKA HURD Final Result [facility] [address] [place] [address], [place] [phone] * Lactate (05/30/2024 7:36 AM EDT) [facility] Lactate 0.6 0.4 - 2.0 mmol/L LAB CHEMISTRY METHOD 05/30/2024 8:47 AM EDT [facility] Blood Venous blood specimen / Unknown Venipuncture / Unknown 05/30/2024 7:36 AM EDT 05/30/2024 8:11 AM EDT us Laurence Florence MD LAB BLOOD ORDERABLES Final Resu lt [facility] [address] [place] [address], [place] [phone] * (ABNORMAL) C-reactive protein (05/30/2024 7:36 AM EDT) [facility] C-Reactive Protein 11.60(H) <=0.50 mg/dL LAB CHEMISTRY METHOD 05/30/2024 8:51 AM EDT [facility] Blood Venous blood specimen / Unknown Venipuncture / Unknown 05/30/2024 7:36 AM EDT 05/30/2024 8:11 AM EDT us Laurenec Florence MD LAB BLOOD ORDERABLES Final Resu lt [facility] [address] [place] [address], [place] [phone] * (ABNORMAL) Sedimentation rate (05/30/2024 7:36 AM EDT) [facility] Sed Rate >130(H) 0 - 20 mm/hr LAB HEMETOLOGY METHOD 05/30/2024 8:57 AM EDT [facility] Blood Venous blood specimen / Unknown Venipuncture / Unknown 05/30/2024 7:36 AM EDT 05/30/2024 8:11 AM EDT Narrative [facility] - 05/30/2024 8:57 AM EDT Rechecked. us Laurence Florence MD LAB BLOOD ORDERABLES Final Resu lt [facility] [address] [place] [address], [place] [phone] * (ABNORMAL) Comprehensive metabolic panel (05/30/2024 7:36 [...] METHOD 05/30/2024 9:08 AM [facility] Alkaline Phosphatase 141(H) 42 - 121 unit/L LAB CHEMISTRY METHOD 05/30/2024 9:08 AM [facility] Total Protein 6.3 6.0 - 8.0 g/dL LAB CHEMISTRY METHOD 05/30/2024 9:08 AM [facility] Albumin 2.5(L) 3.2 - 5.0 g/dL LAB CHEMISTRY METHOD 05/30/2024 9:08 AM [facility] Total Bilirubin 0.5 0.0 - 1.4 mg/dL LAB CHEMISTRY METHOD 05/30/2024 9:08 AM [facility] Blood Venous blood specimen / Unknown Venipuncture / Unknown 05/30/2024 7:36 AM EDT 05/30/2024 8:11 AM EDT us Laurence Florence MD LAB BLOOD ORDERABLES Final Resu lt [facility] [address] [place] [address], * (ABNORMAL) Complete blood count (05/30/2024 7:36 AM EDT) WBC 9.7 4.8 - 10.8 K/mcL LAB HEMETOLOGY METHOD 05/30/2024 8:29 AM EDT [facility] RBC 3.20(L) 4.50 - 5.50 M/mcL LAB HEMETOLOGY METHOD 05/30/2024 8:29 AM [facility] Hemoglobin 7.7(L) 13.5 - 17.5 g/dL LAB HEMETOLOGY METHOD 05/30/2024 8:29 AM [facility] Hematocrit 26.0(L) 42.0 - 54.0 % LAB HEMETOLOGY METHOD 05/30/2024 8:29 AM [facility] MCV 81.5 79.0 - 98.0 FL LAB HEMETOLOGY METHOD 05/30/2024 8:29 AM [facility] MCH 24.1(L) 27.0 - 32.0 pcg LAB HEMETOLOGY METHOD 05/30/2024 8:29 AM [facility] MCHC 29.6(L) 32.0 - 37.0 g/dL LAB HEMETOLOGY METHOD 05/30/2024 8:29 AM [facility] RDW 17.8(H) 11.0 - 15.0 % LAB HEMETOLOGY METHOD 05/30/2024 8:29 AM [facility] Platelets 244 130 - 400 K/mcL LAB HEMETOLOGY METHOD 05/30/2024 8:29 AM [facility] MPV 11.1(H) 7.0 - 11.0 FL LAB HEMETOLOGY METHOD 05/30/2024 8:29 AM [facility] NRBC 0.0 <1.0 % LAB HEMETOLOGY METHOD 05/30/2024 8:29 AM [facility] NRBC Absolute 0.00 <0.10 K/mcL LAB HEMETOLOGY METHOD 05/30/2024 8:29 AM [facility] Blood Venous blood specimen / Unknown Venipuncture / Unknown 05/30/2024 7:36 AM EDT 05/30/2024 8:11 AM EDT us Laurence Florence MD LAB BLOOD ORDERABLES Final Resu lt [facility] ([email or web address] [address] [place] [address], documented in this encounter Visit Diagnoses Diagnosis Chronic respiratory failure with hypoxia (CMS/[facility] V24, CMS/[facility] V28) Encounter for orthopedic aftercare following surgical amputation Encounter for surgical aftercare following surgery on the circulatory system Peripheral vascular disease, unspecified ([facility] V24) Peripheral vascular disease, unspecified documented in this encounter Care Teams Fisher Trap Relationship Specialty Start Date End Date Cass Turcios MD [address] [place] [address] [address] [place] [address] PCP - General Geriatric Medicine 04/02/24 documented as of this encounter
--- OUTSIDE RECORDS SUMMARY | 2024-07-02 18:49 | XMS_ITS | Encounter Summary ---
Author Organization [facility], Address [address] [place] [address] Phone Care Team Providers Care Electric Scoop Operator Name Role Phone Jade Lewis MD Primary Care Provider [phone] Reason for Visit * Reason Comments Med Refill Encounter Details Date Type Department Care Team ([facility] st Contact Info) Description 11/27/2020 Refill [facility] [address] [place] [phone] Alejandro Santana MD [address] [place] [phone] Social History Tobacco Use Types Packs/Day Years [...] filedocumented in this encounter Care Teams Electric Scoop Operator Relationship Specialty Start Date End Date Jade Lewis MD [address] [place] [address] PCP - General Internal Medicine 04/25/22 documented as of this encounter
--- OUTSIDE RECORDS SUMMARY | 2024-07-02 18:49 | XMS_ITS | Encounter Summary ---
Author Organization [facility] Address [address] [place] [address] Care Team Providers Care Inspector Rough Castings Name Role Phone Cass Turcios MD Primary Care Provider [phone] Encounter Details Date Type Department Care Team (Late st Contact Info) Description 04/02/2024 Lab Requisition [facility] - Main Lab 299 [facility] [place] [address] Cass Turcios MD [address] [place] [address] End stage renal disease (CMS/HCC V24, CMS/HCC [...] loved ones. For example, early childhood education specialist or elderly care for an older [...] 6.5 LAB CHEMISTRY METHOD 04/02/2024 10:[address] [facility] Calcium 8.3(L) 8.5 - 10.5 mg/dL LAB CHEMISTRY METHOD 04/02/2024 10:[address] [facility] Blood Venous blood specimen / Unknown Venipuncture / Unknown 04/02/2024 5:24 AM EST 04/02/2024 8:48 AM EST us Cass Turcios MD LAB BLOOD ORDERABLES Final Resul t [facility] [address] [place] [address], * (ABNORMAL) Complete blood count (04/02/2024 5:24 AM EST) WBC 26.2(H) 4.8 - 10.8 K/mcL LAB HEMETOLOGY METHOD 04/02/2024 9:[address] [facility] RBC 4.10(L) 4.50 - 5.50 [...] LAB HEMETOLOGY METHOD 04/02/2024 9:47 AM EST [facility] NRBC 0.0 <1.0 % LAB HEMETOLOGY METHOD 04/02/2024 9:47 AM EST [facility] NRBC Absolute 0.00 <0.10 K/mcL LAB HEMETOLOGY METHOD 04/02/2024 9:47 AM EST [facility] Blood Venous blood specimen / Unknown Venipuncture / Unknown 04/02/2024 5:24 AM EST 04/02/2024 8:48 AM EST Cass Turcios MD LAB BLOOD ORDERABLES Final Resul t [facility] [address] [place] [address], documented in this encounter Visit Diagnoses Diagnosis End stage renal disease (CMS/HCC V24, CMS/HCC V28) End stage renal disease documented in this encounter Care Teams Inspector Rough Castings Relationship Specialty Start Date End Date Cass Turcios MD [address] [place] [address] [address] [place] [address] PCP - General Geriatric Medicine 04/02/24 documented as of this encounter
--- OUTSIDE RECORDS SUMMARY | 2024-07-02 18:49 | XMS_ITS | Clinical Summary ---
Author Organization [facility] Address [address] [facility] [address] [place] [address] Phone Care Team Providers Care Car Salter Name Role Phone Jade Lewis MD Primary Care Provider + [phone] Allergies Active Allergy Reactions Criticality Noted Date [...] FOR WHEEZING 1 Active ergocalciferol 1.25 MG (12643 UT) capsule Take 1 capsule (50,000 Units total) by mouth 1 (one) time per week 4 capsule 5 1 Active cetirizine (ZyrTEC) 10 MG tablet Take 10 mg by mouth 1 (one) time each day Active Fluticasone-Salm eterol 100-50 MCG/ACT aerosol powder [facility] [place] - [phone] [place] [phone] 60.00 Each 5 30 INHALE 1 PUFF [...] mouth daily. Prescribed by Dr. Car Mcdonald (dynamometer tester engine). 2 Active aspirin (ST ANITRA) 81 MG [...] asthma 03/31/2022 Overview (09/15/2022): 08/19/21 Eval at [facility]. Increase Advair to 100/50 F/u 6 months. 05/24/22 Eval at [facility], Dr Funez. Recommends Trelegy once daily. Plan for sleep study to assess need for CPAP. 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 Permacath for dialysis removed and a new one replaced. Will get cefazolin x 4 weeks after dialysis. Lantus decreased to 30 units. Pt to continue on Eliquis for the next few weeks until his AV fistula is ready for utilization. Abdominal pain 03/19/2021 Bacteremia 03/19/2021 Venous thrombosis 01/04/2021 Overview (01/26/2021): 12/13/20-12/19/20 Admitted [place] [facility] for non-occulsive thrombosis in R internal jugular vein. Acute embolism and thrombosis of left internal j ugular vein 12/21/2020 End stage renal failure on dialysis 11/19/2020 Overview (10/05/2021): [facility] Hypocalcemia 11/13/2020 Angina pectoris 11/09/2020 Coagulation defect 11/09/2020 Headache 11/09/2020 Type 2 diabetes mellitus with diabetic nephropat hy 11/09/2020 Edema 09/28/2020 Iron deficiency anemia 12/24/2019 Chronic kidney disease stage 4 02/19/2019 Anemia in chronic kidney disease 02/19/2019 History of colonoscopy 03/30/2016 Overview (01/26/2021): Approximately 2010 in [place] per Pt 11/24/20 Eval at [facility] GI, recommend colonoscopy. Resolved Problems Problem Noted [...] diabetes mellitus 06/12/2015 Overview (01/26/2021): Followed by [facility] Endocrinology. Last visit 06/23/15, HbA1c = 11.1%. Has diabetic nephropathy, retinopathy, and peripheral neuropathy. Switched to Novolin 70/30. Taking 23 units TID with meals, may titrate up/down depending on BG readings over the next few days. They are trying to submit PA for Lyrica. 04/27/16 F/u with Estefani Kaur, DO at [facility] Endocrine. Titrate Novolog 70/30 to 22 units with breakfast, 30 units with dinner. If no improvement or if ongoing hypoglycemia will consider switchign to Levemir and Humalog; F/u 3 months 11/03/20 F/u [facility]. A1c > 12% Continue Lanuts 52 and Humalog 4-8 untsi with meals. Consider using NPH during peritoneal dialysis Encounters Date Type Department Care Team Description 06/26/2024 Orders Only [facility] [address] [address] Car Mcdonald MD 06/26/2024 Treatment [facility], [address] [place] [address] Arely Hernández APRN End stage renal disease; Dependence on renal dialysis 06/19/2024 Orders Only [facility] [address] [address] Car Mcdonald MD 06/17/2024 Orders Only [facility] [address] [address] Car Mcdonald MD 06/12/2024 Treatment [facility] [place], [address] [place] [address] Donny Griggs MD End stage renal disease; Dependence on renal dialysis 05/01/2024 Orders Only [facility] [address] [address] Car Mcdonald MD 2024 Orders Only [facility] [address] [address] Car Mcdonald MD 2024 Treatment [facility] [place], [address] [place] [address] Arely Hernández BRUSH WORKER 04/24/2024 Treatment [facility] [place], [address] [place] [address] Malcolm Taylor MD End stage renal disease; Dependence on renal dialysis 04/24/2024 Orders Only [facility] [address] [address] Car Mcdonald MD 04/22/2024 Orders Only [facility] [address] [address] Car Mcdonald MD 04/19/2024 Orders Only [facility] [address] [address] Car Mcdonald MD 04/19/2024 Treatment [facility] [place], [address] [place] [address] Arely Hernández BRUSH WORKER 04/05/2024 Treatment [facility] [place], [address] [place] [address] Arely Hernández, BRUSH WORKER 04/03/2024 Orders Only [facility] [address] [address] Car Mcdonald MD from Last 3 Months [...] at 66 Diabetes Mother Heart disease Mother ID Stroke Mother grandfather Hypertension Sibling 1 Kidney [...] included. Hemoglobin 9.9(L) 14.0 - 18.0 g/dL [facility] Hemoglobin x 3 29.7(L) 42.0 - 54.0 % [facility] 06/26/2024 06/27/2024 8:1 1 AM EDT Narrative [facility] - 06/27/2024 Unless otherwise specified, test(s) performed at: [facility], [address] [place] [id number] BOTTOM PRESSER: Homero Garcia M.D. For any questions, please call customer service at FREQUENCY:OTHER Resulting Agency Comment Specimen source: Blood Car Mcdonald MD LAB BLOOD ORDERABLES Final Re sult Performing Organization Address [facility] Co de Phone Number [facility] See order comments or contact performing lab Unknown, [place] * HD KINETICS (06/17/2024) Only the most recent of4 resultswithin the time period is included. % Urea Reduction 79 65 - 80 % [facility] 06/17/2024 06/18/2024 8:2 7 AM EDT Narrative Resulting Agency Comment Specimen source: Plasma Car Mcdonald MD LAB BLOOD ORDERABLES Final Re sult Performing Organization Address [facility] de Phone Number [facility] See order comments or contact performing lab Unknown, [place] * (ABNORMAL) SPECIAL CHEMISTRY (06/17/2024) Hemoglobin A1C 6.9(H) 4.8 - 5.9 % [facility] 06/17/2024 06/18/2024 8:4 3 AM EDT Narrative [facility] - 06/18/2024 Unless otherwise specified, test(s) performed at: [facility], [address] [place] [id number] BOTTOM PRESSER: Homero Garcia M.D. For any questions, please call customer service at FREQUENCY:MONTHLY Resulting Agency Comment Specimen source: Blood Car Mcdonald MD LAB BLOOD BANK TEST ORDERABLE S Final Result Performing Organization Address [facility] de Phone Number [facility] See order comments or contact performing lab Unknown, [place] * POST CHEMISTRY (06/17/2024) Only the most recent of4 resultswithin the time period is included. BUN Post Dialysis 19 6 - 19 mg/dL [facility] 06/17/2024 06/18/2024 8:2 7 AM EDT Narrative [facility] - 06/18/2024 Unless otherwise specified, test(s) performed at: [facility], [address] [place], [place] [id number] BOTTOM PRESSER: Homero Garcia M.D. For any questions, please call customer service at FREQUENCY:MONTHLY Resulting Agency Comment Specimen source: Plasma Car Mcdonald MD LAB BLOOD ORDERABLES Final Re sult Performing Organization Address [facility] de Phone Number [employer] [facility] See order comments or contact performing lab Unknown, [place] * IMMUNO CHEMISTRY (06/17/2024) Only the most recent of2 resultswithin the time period is included. Hep B Surface Ag Negative Negative [facility] 06/17/2024 06/18/2024 8:4 0 AM EDT Narrative Resulting Agency Comment Specimen source: Serum Car Mcdonald MD LAB BLOOD ORDERABLES Final Re sult Performing Organization Address [facility] de Phone Number [facility] See order comments or contact performing lab Unknown, [place] * (ABNORMAL) [facility] Chemistry (06/17/2024) Only the most recent of7 resultswithin the time period is included. PTH 584(H) 16 - 80 pg/mL [facility] 06/17/2024 06/18/2024 8:3 9 AM EDT Narrative [facility] - 06/18/2024 Unless otherwise specified, test(s) performed at: [facility], [address] [place], [place] [id number] BOTTOM PRESSER: Homero Garcia M.D. For any questions, please call customer service at FREQUENCY:MONTHLY Resulting Agency Comment Specimen source: Plasma Car Mcdonald MD LAB BLOOD ORDERABLES Final Re sult Performing Organization Address [facility]/ZIP Co de Phone Number [facility] See order comments or contact performing lab Unknown, [place] * [facility] Lab Results (05/01/2024) Only the most recent of3 resultswithin the time period is included. eKt/V (Tattersall) 0.87 Knowledge Center eKdrt/V 0.85 Knowledge Center eNPCR 1.07 Knowledge Center spKt/V Gotch [facility] PCR 74.63 Knowledge Center nPCR_HD 1.23 Knowledge Center eKt/V Gotch 0.85 Knowledg e Center spKt/V (Daugirdas II) 1.10 Knowledge Center WSTDKT/V 2.0 Knowledge Center 05/01/2024 05/01/2024 [place] Ordering Provider LAB BLOOD ORDERABLES Final Result [facility] Center Contact Performing lab Unknown, [place] from Last 3 Months Insurance [place] Medicare Medicaid [place] [facility] Medicare Medicaid [place] Care Teams Car Salter Relationship Specialty Start Date End Date Jade Lewis MD [address] [place] [address] PCP - General Internal Medicine 04/25/22
--- OUTSIDE RECORDS SUMMARY | 2024-07-02 18:49 | XMS_ITS | Encounter Summary ---
Author Organization [facility], Address [address] [place] [address] Phone Care Team Providers Care Print Developer Automatic Name Role Phone aJde Lewis MD Primary Care Provider + [phone] Reason for Visit * Reason Comments Med Refill Encounter Details Date Type Department Care Team ([facility] st Contact Info) Description 10/28/2020 Refill [facility] [address] [place] [phone] Alejandro Santana MD [address] [place] [phone] Social History Tobacco Use Types Packs/Day Years [...] filedocumented in this encounter Care Teams Print Developer Automatic Relationship Specialty Start Date End Date Jade Lewis MD [address] [place] [address] PCP - General Internal Medicine 04/25/22 documented as of this encounter
--- OUTSIDE RECORDS SUMMARY | 2024-07-02 18:49 | XMS_ITS | Encounter Summary ---
Author Organization [facility], Address [address] [place] [address] Phone Care Team Providers Care Electric Solderer Name Role Phone Jade Lewis MD Primary Care Provider + [phone] Reason for Visit * Reason Comments Med Refill Encounter Details Date Type Department Care Team (Late st Contact Info) Description 04/27/2019 Refill [facility] [address] [place] [address] Mercedes Law MD Social History [...] filedocumented in this encounter Care Teams Electric Solderer Relationship Specialty Start Date End Date Jade Lewis MD [address] [place], [place] [phone] PCP - General Internal Medicine 04/25/22 documented as of this encounter
--- OUTSIDE RECORDS SUMMARY | 2024-07-02 18:49 | XMS_ITS | Encounter Summary ---
Author Organization [facility], Address [address] [place] [address] Phone Care Team Providers Care Respiratory Care Practitioner Name Role Phone Jade Lewis MD Primary Care Provider [phone] Reason for Visit * Reason Comments Med Refill Encounter Details Date Type Department Care Team (Late st Contact Info) Description 05/22/2023 Refill [facility] [address] [place] [phone] Car Mcdonald MD [facility] [place] [address] Social History Tobacco Use Types Packs/Day Years [...] on filedocumented in this encounter Care Teams Respiratory Care Practitioner Relationship Specialty Start Date End Date Jade Lewis MD [address] [place] [address] PCP - General Internal Medicine 04/25/22 documented as of this encounter
--- OUTSIDE RECORDS SUMMARY | 2024-07-02 18:49 | XMS_ITS | Encounter Summary ---
Author Organization [facility] Address [address] [place] [address] Care Team Providers Care Environmental Services Worker Name Role Phone Cass Turcios MD Primary Care Provider [phone] Encounter Details Date Type Department Care Team (Late st Contact Info) Description 05/31/2024 Lab Requisition [facility] - Main Lab [address] [facility] [place] [address] Laurence Florence MD [address] [place] [address] End stage renal disease (CMS/HCC V24, CMS/HCC [...] for your loved ones. For example, childcare center administrator or elderly care for an [...] CBC auto differential (05/31/2024 6:09 AM EDT) [facility] Signature WBC 10.9(H) 4.8 - 10.8 K/mcL LAB HEMETOLOGY METHOD 05/31/2024 10:13 AM [facility] RBC 3.20(L) 4.50 - 5.50 M/mcL LAB HEMETOLOGY METHOD 05/31/2024 10:13 AM [facility] Hemoglobin 7.7(L) 13.5 - 17.5 [...] METHOD 05/31/2024 10:13 AM [facility] Eosinophils Relative 1.8 % LAB HEMETOLOGY METHOD 05/31/2024 10:13 AM [facility] Basophils Relative 0.5 % LAB HEMETOLOGY METHOD 05/31/2024 10:13 AM [facility] Immature Granulocytes Relative 0.6 % LAB HEMETOLOGY METHOD 05/31/2024 10:13 AM [facility] Neutrophils Absolute 7.60(H) 1.50 - 7.00 K/mcL LAB HEMETOLOGY METHOD 05/31/2024 10:13 AM [facility] Lymphocytes Absolute 2.10 1.00 - 5.00 K/mcL LAB HEMETOLOGY METHOD 05/31/2024 10:13 AM [facility] Monocytes Absolute 0.92 0.20 - 1.00 K/mcL LAB HEMETOLOGY METHOD 05/31/2024 10:13 AM [facility] Eosinophils Absolute 0.20 0.00 - 0.50 K/mcL LAB HEMETOLOGY METHOD 05/31/2024 10:13 AM [facility] Basophils Absolute 0.05 0.00 - 0.20 K/mcL LAB HEMETOLOGY METHOD 05/31/2024 10:13 AM [facility] Immature Granulocytes Absolute 0.07(H) 0.00 - 0.03 K/mcL LAB HEMETOLOGY METHOD 05/31/2024 10:13 AM [facility] Blood Venous blood specimen / Unknown Venipuncture / Unknown 05/31/2024 6:09 AM EDT 05/31/2024 9:24 AM EDT us Laurence Florence MD LAB BLOOD ORDERABLES Final Resu lt [facility] [address] [place] [address], * (ABNORMAL) Basic metabolic panel (05/31/2024 6:09 AM EDT) Sodium 139 133 - 145 mmol/L LAB CHEMISTRY METHOD 05/31/2024 11:03 AM [facility] Potassium 4.6 3.5 - 5.5 mmol/L LAB CHEMISTRY METHOD 05/31/2024 11:03 AM [facility] Chloride 106 96 - 110 mmol/L LAB CHEMISTRY METHOD 05/31/2024 11:03 AM [facility] CO2 27 21 - 32 mmol/L LAB CHEMISTRY METHOD 05/31/2024 11:03 AM [facility] Anion Gap 6 3 - 11 LAB CHEMISTRY METHOD 05/31/2024 11:03 AM [facility] Glucose 24(LL) 70 - 100 mg/dL LAB CHEMISTRY METHOD 05/31/2024 11:03 AM [facility] BUN 52(H) 5 - 25 mg/dL LAB CHEMISTRY METHOD 05/31/2024 11:03 AM [facility] Creatinine 7.22(H) 0.70 - 1.30 mg/dL LAB CHEMISTRY METHOD 05/31/2024 11:[address] [facility] eGFR 8(L) >=60 mL/min/1. 73m2 LAB CHEMISTRY METHOD 05/31/2024 11:[address] [facility] Comment:Calculation based on the??Chronic Kidney Disease Epidemiology Collaboration (CKD-EPI) equation refit??without adjustment for race. BUN/Creatinine Ratio 7.2 LAB CHEMISTRY METHOD 05/31/2024 11:[address] [facility] Calcium 8.2(L) 8.5 - 10.5 mg/dL LAB CHEMISTRY METHOD 05/31/2024 11:[address] [facility] Blood Venous blood specimen / Unknown Venipuncture / Unknown 05/31/2024 6:09 AM EDT 05/31/2024 9:24 AM EDT us Laurence Florence MD LAB BLOOD ORDERABLES Final Resu lt [facility] [address] [place] [address], documented in this encounter Visit Diagnoses Diagnosis End stage renal disease (CMS/HCC V24, CMS/HCC V28) End stage renal disease Anemia, unspecified documented in this encounter Care Teams Environmental Services Worker Relationship Specialty Start Date End Date Cass Turcios MD [address] [place] [address] [address] [place] [address] PCP - General Geriatric Medicine 04/02/24 documented as of this encounter
--- OUTSIDE RECORDS SUMMARY | 2024-07-02 18:49 | XMS_ITS | Encounter Summary ---
Author Organization [facility] Address [address] [place] [address] Care Team Providers Care Erp Analyst Name Role Phone Cass Turcios MD Primary Care Provider [phone] Encounter Details Date Type Department Care Team (Late st Contact Info) Description 05/20/[address] [facility] - Main Lab [address] [facility] [place] [address] Laurence Florence MD [address] [place] [address] Elevated white blood cell count, unspecified Social [...] for your loved ones. For example, child custody evaluator or elderly care for an older adult? [...] mmol/L LAB CHEMISTRY METHOD 05/20/2024 1:59 PM [facility] Potassium 5.8(H) 3.5 - 5.5 mmol/L LAB CHEMISTRY METHOD 05/20/2024 1:59 PM [facility] Chloride 100 96 - 110 mmol/L LAB CHEMISTRY METHOD 05/20/2024 1:59 PM [facility] CO2 26 21 - 32 mmol/L LAB CHEMISTRY METHOD 05/20/2024 1:59 PM [facility] Anion Gap 12(H) 3 - 11 LAB CHEMISTRY METHOD 05/20/2024 1:59 PM [facility] Glucose 130(H) 70 - 100 mg/dL LAB CHEMISTRY METHOD 05/20/2024 1:59 PM [facility] BUN 76(H) 5 - 25 mg/dL LAB CHEMISTRY METHOD 05/20/2024 1:59 PM [facility] Creatinine 9.66(H) 0.70 - 1.30 mg/dL LAB CHEMISTRY METHOD 05/20/2024 1:59 PM [facility] eGFR 5(L) >=60 mL/min/1. 73m2 LAB CHEMISTRY METHOD 05/20/2024 1:59 PM [facility] Comment:Calculation based on the??Chronic Kidney Disease Epidemiology Collaboration (CKD-EPI) equation refit??without adjustment for race. BUN/Creatinine Ratio 7.9 LAB CHEMISTRY METHOD 05/20/2024 1:59 PM [facility] Calcium 9.2 8.5 - 10.5 mg/dL LAB CHEMISTRY METHOD 05/20/2024 1:59 PM [facility] AST (SGOT) 9(L) 10 - 42 unit/L LAB CHEMISTRY METHOD 05/20/2024 1:59 PM [facility] ALT (SGPT) 14 10 - 60 unit/L LAB CHEMISTRY METHOD 05/20/2024 1:59 PM EDT [facility] Alkaline Phosphatase 142(H) 42 - 121 unit/L LAB CHEMISTRY METHOD 05/20/2024 1:59 PM EDT [facility] Total Protein 6.1 6.0 - 8.0 g/dL LAB CHEMISTRY METHOD 05/20/2024 1:59 PM EDT [facility] Albumin 2.5(L) 3.2 - 5.0 g/dL LAB CHEMISTRY METHOD 05/20/2024 1:59 PM EDT [facility] Total Bilirubin 0.4 0.0 - 1.4 mg/dL LAB CHEMISTRY METHOD 05/20/2024 1:59 PM EDT [facility] Blood Venous blood specimen / Unknown Venipuncture / Unknown 05/20/2024 6:04 AM EDT 05/20/2024 11:40 AM EDT us Laurence Florence MD LAB BLOOD ORDERABLES Final Resu lt [facility] [address] [place] [address], * (ABNORMAL) Complete blood count (05/20/2024 6:04 AM EDT) WBC 15.6(H) 4.8 - 10.8 K/mcL LAB HEMETOLOGY METHOD 05/20/2024 1:18 PM EDT [facility] RBC 3.50(L) 4.50 - 5.50 M/mcL LAB HEMETOLOGY METHOD 05/20/2024 1:18 PM EDT [facility] Hemoglobin 8.6(L) 13.5 - 17.5 g/dL LAB HEMETOLOGY METHOD 05/20/2024 1:18 PM EDT [facility] Hematocrit 29.0(L) 42.0 - 54.0 % LAB HEMETOLOGY METHOD 05/20/2024 1:18 PM EDT [facility] MCV 82.9 79.0 - 98.0 FL LAB HEMETOLOGY METHOD 05/20/2024 1:18 PM EDT [facility] MCH 24.6(L) 27.0 - 32.0 pcg LAB HEMETOLOGY METHOD 05/20/2024 1:18 PM EDT [facility] MCHC 29.7(L) 32.0 - 37.0 g/dL LAB HEMETOLOGY METHOD 05/20/2024 1:18 PM EDT [facility] RDW 19.1(H) 11.0 - 15.0 % LAB HEMETOLOGY METHOD 05/20/2024 1:18 PM EDT [facility] Platelets 479(H) 130 - 400 K/mcL LAB HEMETOLOGY METHOD 05/20/2024 1:18 PM EDT [facility] MPV 11.3(H) 7.0 - 11.0 FL LAB HEMETOLOGY METHOD 05/20/2024 1:18 PM EDT [facility] NRBC 0.0 <1.0 % LAB HEMETOLOGY METHOD 05/20/2024 1:18 PM EDT [facility] NRBC Absolute 0.00 <0.10 K/mcL LAB HEMETOLOGY METHOD 05/20/2024 1:18 PM EDT [facility] Blood Venous blood specimen / Unknown Venipuncture / Unknown 05/20/2024 6:04 AM EDT 05/20/2024 11:40 AM EDT us Laurence Florence MD LAB BLOOD ORDERABLES Final Resu lt [facility] [address] [place] [address], documented in this encounter Visit Diagnoses Diagnosis Elevated white blood cell count, unspecified documented in this encounter Care Teams Erp Analyst Relationship Specialty Start Date End Date Cass Turcios MD [address] [place] [address] [address] [place] [address] PCP - General Geriatric Medicine 04/02/24 documented as of this encounter
--- OUTSIDE RECORDS SUMMARY | 2024-07-02 18:49 | XMS_ITS | Encounter Summary ---
Author Organization [facility] Address [address] [place] [address] Care Team Providers Care Service Station Attendant Name Role Phone Cass Turcios MD Primary Care Provider [phone] Encounter Details Date Type Department Care Team (Latest Contact Info) Description 05/17/2024 Lab Requisition [facility] - Main Lab [address] [facility] [place] [address] Laurence Florence MD [address] [place] [id number] Type 2 diabetes mellitus without complications (CMS/HCC [...] your loved ones. For example, child care worker or elderly care for an older [...] EDT Type 2 diabetes mellitus without complications ([facility]/HCC) End stage renal disease ([facility]) HEMOGLOBIN A1C Routine 05/17/2024 5:37 AM EDT Type 2 diabetes mellitus without complications (CMS/HCC) End stage renal disease ([facility]/HCC) BASIC METABOLIC PANEL Routine 05/17/2024 5:37 AM EDT Type 2 diabetes mellitus without complications ([facility]/HCC) End stage renal disease ([facility]/HCC) documented in this encounter Results * (ABNORMAL) Basic metabolic panel (05/17/2024 5:37 AM EDT) Sodium 135 133 - 145 mmol/L LAB CHEMISTRY METHOD 05/17/2024 11:32 AM [facility] Potassium 5.5 3.5 - 5.5 mmol/L LAB CHEMISTRY METHOD 05/17/2024 11:32 AM [facility] Chloride 95(L) 96 - 110 mmol/L LAB CHEMISTRY METHOD 05/17/2024 11:32 AM [facility] CO2 29 21 - 32 mmol/L LAB CHEMISTRY METHOD 05/17/2024 11:32 AM [facility] Anion Gap 11 3 - 11 LAB CHEMISTRY METHOD 05/17/2024 11:32 AM [facility] Glucose 173(H) 70 - 100 mg/dL LAB CHEMISTRY METHOD 05/17/2024 11:32 AM [facility] BUN 52(H) 5 - 25 mg/dL LAB CHEMISTRY METHOD 05/17/2024 11:32 AM [facility] Creatinine 7.48(H) 0.70 - 1.30 mg/dL LAB CHEMISTRY METHOD 05/17/2024 11:32 AM [facility] eGFR 7(L) >=60 mL/min/1. 73m2 LAB CHEMISTRY METHOD 05/17/2024 11:32 AM [facility] Comment:Calculation based on the??Chronic Kidney Disease Epidemiology Collaboration (CKD-EPI) equation refit??without adjustment for race. BUN/Creatinine Ratio 7.0 LAB CHEMISTRY METHOD 05/17/2024 11:32 AM EDT [facility] Calcium 9.0 8.5 - 10.5 mg/dL LAB CHEMISTRY METHOD 05/17/2024 11:32 AM EDT [facility] Blood Venous blood specimen / Unknown Venipuncture / Unknown 05/17/2024 5:37 AM EDT 05/17/2024 9:43 AM EDT us Laurence Florence MD LAB BLOOD ORDERABLES Final Resu lt Performing Organization Address [facility] de Phone Number [facility] [address] [place] [address], [place] [phone] * (ABNORMAL) Hemoglobin A1c (05/17/2024 5:37 AM EDT) Hemoglobin A1C 7.1(H) <6.5 % LAB CHEMISTRY METHOD 05/17/2024 1:30 PM EDT [facility] Mean Bld Glu Estim. 157 mg/dL LAB CHEMISTRY METHOD 05/17/2024 1:30 PM EDT [facility] Blood Venous blood specimen / Unknown Venipuncture / Unknown 05/17/2024 5:37 AM EDT 05/17/2024 9:43 AM EDT us Laurence Florence MD LAB BLOOD ORDERABLES Final Resu lt Performing Organization Address City/[facility]/ZIP Co de Phone Number [facility] [address] [place] [address], [place] [phone] * (ABNORMAL) Complete blood count (05/17/2024 5:37 AM EDT) WBC 16.6(H) 4.8 - 10.8 K/[facility] LAB HEMETOLOGY METHOD 05/17/2024 10:40 AM EDT [facility] RBC 3.70(L) 4.50 - 5.50 M/[facility] LAB HEMETOLOGY METHOD 05/17/2024 10:40 AM [facility] Hemoglobin 8.9(L) 13.5 - 17.5 g/dL LAB HEMETOLOGY METHOD 05/17/2024 10:40 AM [facility] Hematocrit 30.1(L) 42.0 - 54.0 % LAB HEMETOLOGY METHOD 05/17/2024 10:40 AM [facility] MCV 82.5 79.0 - 98.0 FL LAB HEMETOLOGY METHOD 05/17/2024 10:40 AM [facility] MCH 24.4(L) 27.0 - 32.0 pcg LAB HEMETOLOGY METHOD 05/17/2024 10:40 AM [facility] MCHC 29.6(L) 32.0 - 37.0 g/dL LAB HEMETOLOGY METHOD 05/17/2024 10:40 AM [facility] RDW 18.3(H) 11.0 - 15.0 % LAB HEMETOLOGY METHOD 05/17/2024 10:40 AM [facility] Platelets 431(H) 130 - 400 K/mcL LAB HEMETOLOGY METHOD 05/17/2024 10:40 AM [facility] MPV 10.6 7.0 - 11.0 FL LAB HEMETOLOGY METHOD 05/17/2024 10:40 AM [facility] NRBC 0.0 <1.0 % LAB HEMETOLOGY METHOD 05/17/2024 10:40 AM [facility] NRBC Absolute 0.00 <0.10 K/mcL LAB HEMETOLOGY METHOD 05/17/2024 10:40 AM [facility] Blood Venous blood specimen / Unknown Venipuncture / Unknown 05/17/2024 5:37 AM EDT 05/17/2024 9:43 AM EDT us Laurence Florence MD LAB BLOOD ORDERABLES Final Resu lt [facility] [address] [place] [address], documented in this encounter Visit Diagnoses Diagnosis Type 2 diabetes mellitus without complications ([facility] V24, [facility] V28) End stage renal disease ([facility] V24, [facility] V28) End stage renal disease documented in this encounter Care Teams Service Station Attendant Relationship Specialty Start Date End Date Cass Turcios MD [address] [facility] [address] [place] [address] PCP - General Geriatric Medicine 04/02/24 documented as of this encounter
--- OUTSIDE RECORDS SUMMARY | 2024-07-02 18:49 | XMS_ITS | Encounter Summary ---
Author Organization [facility], Address [address] [place] [address] Phone Care Team Providers Care Video Network Engineer Name Role Phone Jade Lewis MD Primary Care Provider + [phone] Reason for Visit * Reason Comments Med Refill Encounter Details Date Type Department Care Team ([facility] st Contact Info) Description 06/25/2019 Refill [facility] [address] [place] [address] Mercedes Law MD Social History [...] on filedocumented in this encounter Care Teams Video Network Engineer Relationship Specialty Start Date End Date Jade Lewis MD [address] [place], [place] [phone] PCP - General Internal Medicine 04/25/22 documented as of this encounter
--- OUTSIDE RECORDS SUMMARY | 2024-07-02 18:49 | XMS_ITS | Encounter Summary ---
Author Organization [facility] Address [address] [place] [address] Care Team Providers Care Occupational Health Physiotherapist Name Role Phone Cass Turcios MD Primary Care Provider [phone] Encounter Details Date Type Department Care Team (Late st Contact Info) Description 05/21/2024 Lab Requisition [facility] - Main Lab [address] [facility] [place] [address] Laurence Florence MD [address] [place] [address] Chronic combined systolic (congestive) and diastolic (congestive) [...] your loved ones. For example, child development associate teacher or elderly care for an [...] CBC auto differential (05/21/2024 5:40 AM EDT) [facility] WBC 14.4(H) 4.8 - 10.8 K/mcL LAB HEMETOLOGY METHOD 05/21/2024 12:49 PM [facility] RBC 3.80(L) 4.50 - 5.50 M/mcL LAB HEMETOLOGY METHOD 05/21/2024 12:49 PM [facility] Hemoglobin 9.5(L) 13.5 - 17.5 g/dL LAB HEMETOLOGY METHOD 05/21/2024 12:49 PM [facility] Hematocrit 33.1(L) 42.0 - 54.0 % LAB HEMETOLOGY METHOD 05/21/2024 12:49 PM [facility] MCV 87.1 79.0 - 98.0 FL LAB HEMETOLOGY METHOD 05/21/2024 12:49 PM [facility] MCH 25.0(L) 27.0 - 32.0 pcg LAB HEMETOLOGY METHOD 05/21/2024 12:49 PM [facility] MCHC 28.7(L) 32.0 - 37.0 g/dL LAB HEMETOLOGY METHOD 05/21/2024 12:49 PM [facility] RDW 19.6(H) 11.0 - 15.0 % LAB HEMETOLOGY METHOD 05/21/2024 12:49 PM [facility] Platelets 447(H) 130 - 400 K/mcL LAB HEMETOLOGY METHOD 05/21/2024 12:49 PM EDT [facility] MPV 11.3(H) 7.0 - 11.0 FL LAB HEMETOLOGY METHOD 05/21/2024 12:49 [facility] NRBC 0.0 <1.0 % LAB HEMETOLOGY METHOD 05/21/2024 12:49 PM [facility] NRBC Absolute 0.00 <0.10 K/mcL LAB HEMETOLOGY METHOD 05/21/2024 12:49 PM [facility] Neutrophils Relative 76.8 % LAB HEMETOLOGY METHOD 05/21/2024 12:49 PM [facility] Lymphocytes Relative 13.0 % LAB HEMETOLOGY METHOD 05/21/2024 12:49 PM [facility] Monocytes Relative 7.0 % LAB HEMETOLOGY METHOD 05/21/2024 12:49 PM [facility] Eosinophils Relative 2.0 % LAB HEMETOLOGY METHOD 05/21/2024 12:49 PM [facility] Basophils Relative 0.4 % LAB HEMETOLOGY METHOD 05/21/2024 12:49 PM [facility] Immature Granulocytes Relative 0.8 % LAB HEMETOLOGY METHOD 05/21/2024 12:49 PM [facility] Neutrophils Absolute 11.05(H) 1.50 - 7.00 K/mcL LAB HEMETOLOGY METHOD 05/21/2024 12:49 PM [facility] Lymphocytes Absolute 1.87 1.00 - 5.00 K/mcL LAB HEMETOLOGY METHOD 05/21/2024 12:49 PM [facility] Monocytes Absolute 1.00 0.20 - 1.00 K/mcL LAB HEMETOLOGY METHOD 05/21/2024 12:49 PM EDT [facility] Eosinophils Absolute 0.29 0.00 - 0.50 K/[facility] LAB HEMETOLOGY METHOD 05/21/2024 12:49 PM EDT [facility] Basophils Absolute 0.06 0.00 - 0.20 K/mcL LAB HEMETOLOGY METHOD 05/21/2024 12:49 PM EDT [facility] Immature Granulocytes Absolute 0.11(H) 0.00 - 0.03 K/[facility] LAB HEMETOLOGY METHOD 05/21/2024 12:49 PM EDT [facility] Blood Venous blood specimen / Unknown Venipuncture / Unknown 05/21/2024 5:40 AM EDT 05/21/2024 11:19 AM EDT us Laurence Florence MD LAB BLOOD ORDERABLES Final Resu lt [facility] [address] [place] [address], [place] [phone] * (ABNORMAL) Basic metabolic panel (05/21/2024 5:40 AM EDT) Sodium 137 133 - 145 mmol/L LAB CHEMISTRY METHOD 05/21/2024 2:38 PM [facility] Potassium 5.3 3.5 - 5.5 mmol/L LAB CHEMISTRY METHOD 05/21/2024 2:38 PM T [facility] Comment:Hemolysis present Chloride 99 96 - 110 mmol/L LAB CHEMISTRY METHOD 05/21/2024 2:38 PM [facility] CO2 27 21 - 32 mmol/L LAB CHEMISTRY METHOD 05/21/2024 2:38 PM [facility] Anion Gap 11 3 - 11 LAB CHEMISTRY METHOD 05/21/2024 2:38 PM [facility] Glucose 76 70 - 100 mg/dL LAB CHEMISTRY METHOD 05/21/2024 2:38 PM EDT [facility] BUN 58(H) 5 - 25 mg/dL LAB CHEMISTRY METHOD 05/21/2024 2:38 PM EDT [facility] Creatinine 7.10(H) 0.70 - 1.30 mg/dL LAB CHEMISTRY METHOD 05/21/2024 2:38 PM EDT [facility] eGFR 8(L) >=60 mL/min/1. 73m2 LAB CHEMISTRY METHOD 05/21/2024 2:38 PM EDT [facility] Comment:Calculation based on the??Chronic Kidney Disease Epidemiology Collaboration (CKD-EPI) equation refit??without adjustment for race. BUN/Creatinine Ratio 8.2 LAB CHEMISTRY METHOD 05/21/2024 2:38 PM EDT [facility] Calcium 8.6 8.5 - 10.5 mg/dL LAB CHEMISTRY METHOD 05/21/2024 2:38 PM EDT [facility] Blood Venous blood specimen / Unknown Venipuncture / Unknown 05/21/2024 5:40 AM EDT 05/21/2024 11:19 AM EDT us Laurence Floernce MD LAB BLOOD ORDERABLES Final Resu lt [facility] [address] [place] [address], documented in this encounter Visit Diagnoses Diagnosis Chronic combined systolic (congestive) and diastolic (congestive) heart failure (CMS/HCC V24, CMS/HCC V28) End stage renal disease (CMS/HCC V24, CMS/HCC V28) End stage renal disease documented in this encounter Care Teams Occupational Health Physiotherapist Relationship Specialty Start Date End Date Cass Turcios MD [address] [place] [address] [address] [place] [address] PCP - General Geriatric Medicine 04/02/24 documented as of this encounter
--- OUTSIDE RECORDS SUMMARY | 2024-07-02 18:49 | XMS_ITS | Encounter Summary ---
Author Organization [facility], Address [address] [place] [address] Phone Care Team Providers Care Cement Finisher Helper Name Role Phone Jade Lewis MD Primary Care Provider + [phone] Reason for Visit * Reason Comments Med Refill Encounter Details Date Type Department Care Team (Late st Contact Info) Description 06/13/2023 Refill [facility] [address] [place] [phone] Malcolm Taylor MD [address] [place] [phone] Social History Tobacco Use Types Packs/Day Years [...] on filedocumented in this encounter Care Teams Cement Finisher Helper Relationship Specialty Start Date End Date Jade Lewis MD [address] [place] [address] PCP - General Internal Medicine 04/25/22 documented as of this encounter
--- OUTSIDE RECORDS SUMMARY | 2024-07-02 18:49 | XMS_ITS | Encounter Summary ---
Author Organization [facility] Address [address] [place] [address] Phone Care Team Providers Care Power Line Installer Name Role Phone Jade Lewis MD Primary Care Provider + [phone] Reason for Visit * Reason Comments Med Refill Encounter Details Date Type Department Care Team (Late st Contact Info) Description 04/30/2021 Refill [facility] [address] [place] [phone] Alejandro Santana MD [address] [place] [place] [phone] Social History Tobacco Use Types Packs/Day Years [...] on filedocumented in this encounter Care Teams Power Line Installer Relationship Specialty Start Date End Date Jade Lewis MD [address] [place] [address] PCP - General Internal Medicine 04/25/22 documented as of this encounter
--- OUTSIDE RECORDS SUMMARY | 2024-07-02 18:49 | XMS_ITS | Encounter Summary ---
Author Organization [facility] Address [address] [place] [address] Care Team Providers Care Barrel Turner Name Role Phone Cass Turcios MD Primary Care Provider [phone] Encounter Details Date Type Department Care Team (Late st Contact Info) Description 05/18/2024 Lab Requisition [facility] - Main Lab [address] [facility] [place] [address] Elsy Christina PA [address] [facility] [address] [place] [address] Unspecified systolic (congestive) heart failure ([facility] V24, CMS/HCC V28); Type 2 diabetes mellitus without complications (CMS/HCC V24, CMS/HCC V28); End stage renal disease (CMS/HCC V24, CMS/[facility] V28) Social History Tobacco Use Types [...] for your loved ones. For example, child psychologist or elderly care for an older [...] AM EDT Unspecified systolic (congestive) heart failure ([facility]/HCC) Type 2 diabetes mellitus without [...] LAB HEMETOLOGY METHOD 05/18/2024 10:27 AM EDT [facility] Lymphocytes Absolute 2.30 1.00 - 5.00 K/[facility] LAB HEMETOLOGY METHOD 05/18/2024 10:27 AM EDT [facility] Monocytes Absolute 0.87 0.20 - 1.00 K/[facility] LAB HEMETOLOGY METHOD 05/18/2024 10:27 AM EDT [facility] Eosinophils Absolute 0.37 0.00 - 0.50 K/[facility] LAB HEMETOLOGY METHOD 05/18/2024 10:27 AM EDT [facility] Basophils Absolute 0.04 0.00 - 0.20 K/[facility] LAB HEMETOLOGY METHOD 05/18/2024 10:27 AM EDT [facility] Immature Granulocytes Absolute 0.09(H) 0.00 - 0.03 K/[facility] LAB HEMETOLOGY METHOD 05/18/2024 10:27 AM EDT [facility] Blood Venous blood specimen / Unknown Venipuncture / Unknown 05/18/2024 7:20 AM EDT 05/18/2024 9:58 AM EDT us Elsy MONTERO LAB BLOOD ORDERABLES Final Re sult [facility] [address] [place] [address], * (ABNORMAL) Hemoglobin A1c (05/18/2024 7:20 AM [...] Re sult [facility] [address] [place] [address], [place] [phone] * (ABNORMAL) Basic metabolic panel (05/18/2024 7:20 [...] LAB CHEMISTRY METHOD 05/18/2024 10:41 AM EDT [facility] Blood Venous blood specimen / Unknown Venipuncture / Unknown 05/18/2024 7:20 AM EDT 05/18/2024 9:58 AM EDT us Elsy MONTERO LAB BLOOD ORDERABLES Final Re sult [facility] [address] [place] [address], documented in this encounter Visit Diagnoses Diagnosis Unspecified systolic (congestive) heart failure ([facility] V24, [facility] V28) Type 2 diabetes mellitus without complications ([facility] V24, [facility] V28) End stage renal disease ([facility] V24, [facility] V28) End stage renal disease documented in this encounter Care Teams Barrel Turner Relationship Specialty Start Date End Date Cass Turcios MD [address] [place] [address] [address] [place] [address] PCP - General Geriatric Medicine 04/02/24 documented as of this encounter
[2024-07-02 18:52] LABS: C Reactive Protein 22.83 mg/dL (< or = 0.50)
[2024-07-02 19:24] LABS: Lactic Acid 0.9 mmol/L (0.5-2.0)
[2024-07-02 20:05] LABS: Erythrocyte Sedimentation Rate 70 MM/HR (0-15)
--- NOTE | 2024-07-02 20:21 | PC.NURSE ---
Rena Martinez notified of BP remaining in 170s and states she is okay with that BP.
--- NOTE | 2024-07-02 20:52 | PC.NURSE ---
ED provider Juan informed of B 204/93, P 81, no new orders at this time. Patient denies chest pain, headache, SOB, changes in vision.
[2024-07-02] MEDS: Doxycycline Monohydrate 100 MG CAPSULE PO (22:50)
== END 2024-07-02 23:28 | disposition home or self-care (01) ==
PROVIDERS: Physician Assistant Medical; Emergency Provider Emergency Medicine Emergency Medical Services
DX: L03.115 Cellulitis of right lower limb (principal); R06.02 Shortness of breath; I13.2 Hypertensive heart and chronic kidney disease with heart failure and with stage 5 chronic kidney disease, or end stage renal disease; I50.43 Acute on chronic combined systolic (congestive) and diastolic (congestive) heart failure; N18.6 End stage renal disease; E11.22 Type 2 diabetes mellitus with diabetic chronic kidney disease; G40.909 Epilepsy, unspecified, not intractable, without status epilepticus; Z79.4 Long term (current) use of insulin; Z99.2 Dependence on renal dialysis; Z79.899 Other long term (current) drug therapy; Z89.511 Acquired absence of right leg below knee
CPT/HCPCS: 36415; 71045; 73552; 80053; 83605; 83735; 83880; 84484; 85025; 85652; 86140; 87040; 93005; 96374; 99212; 99284; 99285; J2270

== ENCOUNTER → 2024-07-02 14:25 | Outpatient (BNV) | payer MEDICARE, MEDICAID, SELFPAY | PROVIDERS: Emergency Provider Emergency Medicine Emergency Medical Services; Visit Provider Internal Medicine Cardiovascular Disease | DX: R94.31 Abnormal electrocardiogram [ECG] [EKG] (principal); W19.XXXA Unspecified fall, initial encounter | CPT/HCPCS: 93010 ==

== ENCOUNTER → 2024-07-02 14:27 | Outpatient (BNV) | payer MEDICARE, MEDICAID, SELFPAY | PROVIDERS: Visit Provider Radiology Diagnostic Radiology | DX: J90 Pleural effusion, not elsewhere classified (principal); I51.7 Cardiomegaly; L08.9 Local infection of the skin and subcutaneous tissue, unspecified | CPT/HCPCS: 71045; 73552 ==

== ENCOUNTER 2024-07-09 11:30 | Outpatient (REF) | payer MEDICARE, MEDICAID, SELFPAY ==
--- OUTSIDE RECORDS SUMMARY | 2024-07-10 12:55 | XMS_ITS | Encounter Summary ---
Author Organization [facility] Address [address] [place] [address] Care Team Providers Care Gearcase Assembler Name Role Phone Cass Turcios MD Primary Care Provider [phone] Encounter Details Date Type Department Care Team (Late st Contact Info) Description 05/31/2024 Lab Requisition [facility] - Main Lab [address] [facility] [place] [address] Laurence Florence MD [address] [place] [address] End stage renal disease (CMS/HCC V24, CMS/HCC [...] CBC auto differential (05/31/2024 6:09 AM EDT) [facility] WBC 10.9(H) 4.8 - 10.8 K/mcL [...] Final Resu lt [facility] [address] [place] [address], * (ABNORMAL) Basic metabolic panel (05/31/2024 6:09 [...] LAB CHEMISTRY METHOD 05/31/2024 11:03 AM EDT [facility] eGFR 8(L) >=60 mL/min/1. 73m2 LAB CHEMISTRY METHOD 05/31/2024 11:03 AM EDT [facility] Comment:Calculation based on the??Chronic Kidney Disease Epidemiology Collaboration (CKD-EPI) equation refit??without adjustment for race. BUN/Creatinine Ratio 7.2 LAB CHEMISTRY METHOD 05/31/2024 11:03 AM EDT [facility] Calcium 8.2(L) 8.5 - 10.5 mg/dL LAB CHEMISTRY METHOD 05/31/2024 11:03 AM EDT [facility] Blood Venous blood specimen / Unknown Venipuncture / Unknown 05/31/2024 6:09 AM EDT 05/31/2024 9:24 AM EDT us Laurence Florence MD LAB BLOOD ORDERABLES Final Resu lt [facility] [address] [place] [address], documented in this encounter Visit Diagnoses Diagnosis End stage renal disease (CMS/HCC V24, CMS/HCC V28) End stage renal disease Anemia, unspecified documented in this encounter Care Teams Gearcase Assembler Relationship Specialty Start Date End Date Cass Turcios MD [address] [place] [address] [address] [place] [address] PCP - General Geriatric Medicine 04/02/24 documented as of this encounter
--- OUTSIDE RECORDS SUMMARY | 2024-07-10 12:55 | XMS_ITS | Encounter Summary ---
Author Organization [facility], Address [address] [place] [address] Phone Care Team Providers Care Vice Provost Name Role Phone Jade Lewis MD Primary Care Provider [phone] Encounter Details Date Type Department Care Team (Late st Contact Info) Description 10/28/2019 Orders Only [facility] [address] [phone] [place] [address] [place] [phone] Social History Tobacco Use Types Packs/Day Years [...] filedocumented in this encounter Care Teams Vice Provost Relationship Specialty Start Date End Date Jade Lewis MD [address] [place] [address] PCP - General Internal Medicine 04/25/22 documented as of this encounter
--- OUTSIDE RECORDS SUMMARY | 2024-07-10 12:55 | XMS_ITS | Encounter Summary ---
Author Organization [facility], Address [address] [place] [address] Phone Care Team Providers Care Hogshead Builder Name Role Phone Jade Lewis MD Primary Care Provider + [phone] Reason for Visit * Reason Comments Med Refill Encounter Details Date Type Department Care Team ([facility] st Contact Info) Description 06/25/2019 Refill [facility] [address] [place] [address] Mercedes Law MD Social History [...] on filedocumented in this encounter Care Teams Hogshead Builder Relationship Specialty Start Date End Date Jade Lewis MD [address] [place], [place] [phone] PCP - General Internal Medicine 04/25/22 documented as of this encounter
--- OUTSIDE RECORDS SUMMARY | 2024-07-10 12:55 | XMS_ITS | Encounter Summary ---
Author Organization [facility], Address [address] [place] [address] Phone Care Team Providers Care Manager Entry Name Role Phone Jade Lewis MD Primary Care Provider + [phone] Reason for Visit * Reason Comments Med Refill Encounter Details Date Type Department Care Team (Late st Contact Info) Description 06/13/2023 Refill [facility] [address] [place] [phone] Malcolm Taylor MD [address] [place] [id number] Social History Tobacco Use Types Packs/Day Years [...] filedocumented in this encounter Care Teams Manager Entry Relationship Specialty Start Date End Date Jade Lewis MD [address] [place] [address] PCP - General Internal Medicine 04/25/22 documented as of this encounter
--- OUTSIDE RECORDS SUMMARY | 2024-07-10 12:55 | XMS_ITS | Encounter Summary ---
Author Organization [facility] Address [address] [facility] [address] [place] [address] Phone Care Team Providers Care Reinsurance Accountant Name Role Phone Jade Lewis MD Primary Care Provider + [phone] Reason for Visit * Reason Onset Date Comments Med Refill 04/19/2022 Encounter Details Date Type Department Care Team (Late st Contact Info) Description 04/19/2022 Refill [facility] [address] [place] [phone] Loida Madsen Social History Tobacco Use Types [...] on filedocumented in this encounter Care Teams Reinsurance Accountant Relationship Specialty Start Date End Date Jade Lewis MD [address] [place] [address] PCP - General Internal Medicine 04/25/22 documented as of this encounter
--- OUTSIDE RECORDS SUMMARY | 2024-07-10 12:55 | XMS_ITS | Encounter Summary ---
Author Organization [facility] Address [address] [place] [address] Care Team Providers Care Acid Washer Operator Name Role Phone Cass Turcios MD Primary Care Provider [phone] Encounter Details Date Type Department Care Team (Late st Contact Info) Description 03/25/2024 Lab Requisition [facility] - Main Lab [address] [facility] [place] [address] Cass Turcios MD [address] [place] [address] Anemia, unspecified; Chronic diastolic (congestive) heart failure [...] your loved ones. For example, director of child welfare services or elderly care for an older adult? [...] LAB CHEMISTRY METHOD 03/25/2024 2:44 PM EST [facility] AST (SGOT) 21 10 [...] Resul t [facility] [address] [place] [address], * (ABNORMAL) Complete blood count (03/25/2024 5:09 AM EST) WBC 14.1(H) 4.8 - 10.8 K/mcL LAB HEMETOLOGY METHOD 03/25/2024 2:27 PM EST [facility] RBC 4.60 4.50 - [...] LAB BLOOD ORDERABLES Final Resul t [facility] [address] [place] [address], documented in this encounter Visit Diagnoses Diagnosis Anemia, unspecified Chronic diastolic (congestive) heart failure ([facility] V24, [facility] V28) Other pericardial effusion (noninflammatory) End stage renal disease ([facility] V24, [facility] V28) End stage renal disease documented in this encounter Additional Health Concerns Infection Onset Date Last Indicated Resolved Time Respiratory Rule-Out 03/25/2024 03/25/2024 025 8:14 PM EST documented as of this encounter Care Teams Acid Washer Operator Relationship Specialty Start Date End Date Cass Turcios MD [address] [facility] [address] [place] [address] PCP - General Geriatric Medicine 04/02/24 documented as of this encounter
--- OUTSIDE RECORDS SUMMARY | 2024-07-10 12:55 | XMS_ITS | Clinical Summary ---
Author Organization [employer] [facility] Address [address] [place] [address] 7 [place] [address] Care Team Providers Care Engineering Consultant Name Role Phone Unavailable Primary Care Provider [...] 60-74 years 1-dose series) 2016 COVID-19 Vaccine (2023- season) 2023 08/20/2021, 01/08/2021, 07/29/2020, Additional history [...] patient's age to complete this topic [place] [address] [place] [address] STANDARD
--- OUTSIDE RECORDS SUMMARY | 2024-07-10 12:55 | XMS_ITS | Encounter Summary ---
Author Organization [facility] Address [address] [place] [address] Care Team Providers Care Cotton Dispatcher Name Role Phone Lainey Cody ESTUARDO Primary Care Provider [phone] Encounter Details Date Type Department Care Team ([facility] st Contact Info) Description 07/05/2024 Interim Notes [address] [address] [place] [address] [place] [address] Social History Tobacco Use Types Packs/Day Years Used Date Smoking Tobacco: Former Passive Smoke Exposure: Never Smokeless Tobacco: Never Comments:quit yrs ago Alcohol Use Standard Drinks/Week Comments Never 0 (1 standard drink = 0.6 oz pur e alcohol) Social Connections Answer Date Recorded Connectedness 1 [...] as of this encounter Progress Notes * Diane Barrett [place] - 07/05/2024 8:56 AM EDT Rx form for glucerna has been faxed to [facility] [address] [place] [address] phone number [phone] Fax number [phone] Rx sent to medical records with conformation for scanned documented in this encounter Plan of Treatment Upcoming Encounters Date Type Department Care Team (Late st Contact Info) Description 08/13/2024 11:00 AM EDT Office Visit [facility] [address] [place] [address] Pedro Ng, LaciD [address] [place] [address] documented as of this encounter Visit Diagnoses Not on filedocumented in this encounter Additional Health Concerns Assessment Noted Time PHQ-9 Depression Total Score: 16 025 9:58 AM PDT documented as of this encounter Care Teams Cotton Dispatcher Relationship Specialty Start Date End Date Lainey Cody FNP [address] [place] [address] PCP - General Internal Medicine 12/11/23 documented as of this encounter
--- OUTSIDE RECORDS SUMMARY | 2024-07-10 12:55 | XMS_ITS | Encounter Summary ---
Author Organization [facility], Address [address] [place] [address] Phone Care Team Providers Care Farm Planner Name Role Phone Jade Lewis MD Primary Care Provider [phone] Reason for Visit * Reason Comments Med Refill Encounter Details Date Type Department Care Team (Late st Contact Info) Description 05/22/2023 Refill [facility] [address] [place] [phone] Car Mcdonald MD [facility] [place] [address] [place] [address] Social History Tobacco Use Types Packs/Day Years [...] on filedocumented in this encounter Care Teams Farm Planner Relationship Specialty Start Date End Date Jade Lewis MD [address] [place] [address] PCP - General Internal Medicine 04/25/22 documented as of this encounter
--- OUTSIDE RECORDS SUMMARY | 2024-07-10 12:55 | XMS_ITS | Encounter Summary ---
Author Organization Address [address] [place] [address] Care Team Providers Care School Standards Coach Name Role Phone Cass Turcios MD Primary Care Provider [phone] Encounter Details Date Type Department Care Team (Late st Contact Info) Description 06/06/2024 Lab Requisition [facility] - Main Lab [address] [facility] [place] [address] Laurence Florence MD [address] [place] [address] Cellulitis of right lower limb; End stage [...] your loved ones. For example, child support agent or elderly care for an older adult? [...] mmol/L LAB CHEMISTRY METHOD 06/06/2024 8:59 AM [facility] Potassium 4.3 3.5 - 5.5 mmol/L LAB CHEMISTRY METHOD 06/06/2024 8:59 AM [facility] Chloride 106 96 - 110 mmol/L LAB CHEMISTRY METHOD 06/06/2024 8:59 AM [facility] CO2 27 21 - 32 mmol/L LAB CHEMISTRY METHOD 06/06/2024 8:59 AM [facility] Anion Gap 6 3 - 11 LAB CHEMISTRY METHOD 06/06/2024 8:59 AM [facility] Glucose 162(H) 70 - 100 mg/dL LAB CHEMISTRY METHOD 06/06/2024 8:59 AM [facility] BUN 28(H) 5 - 25 mg/dL LAB CHEMISTRY METHOD 06/06/2024 8:59 AM [facility] Creatinine 3.78(H) 0.70 - 1.30 mg/dL LAB CHEMISTRY METHOD 06/06/2024 8:59 AM [facility] eGFR 17(L) >=60 mL/min/1. 73m2 LAB CHEMISTRY METHOD 06/06/2024 8:59 AM [facility] Comment:Calculation based on the??Chronic Kidney Disease Epidemiology Collaboration (CKD-EPI) equation refit??without adjustment for race. BUN/Creatinine Ratio 7.4 LAB CHEMISTRY METHOD 06/06/2024 8:59 AM [facility] Calcium 9.1 8.5 - 10.5 mg/dL LAB CHEMISTRY METHOD 06/06/2024 8:59 AM [facility] Blood Venous blood specimen / Unknown Venipuncture / Unknown 06/06/2024 5:35 AM EDT 06/06/2024 8:10 AM EDT us Laurence Florence MD LAB BLOOD ORDERABLES Final Resu lt [facility] [address] [place] [address], [place] [phone] * (ABNORMAL) Complete blood count (06/06/2024 5:35 AM EDT) [facility] WBC 9.3 4.8 - 10.8 K/mcL LAB HEMETOLOGY METHOD 06/06/2024 8:35 AM EDT [facility] RBC 3.20(L) 4.50 - 5.50 M/mcL LAB HEMETOLOGY METHOD 06/06/2024 8:35 AM EDT [facility] Hemoglobin 7.6(L) 13.5 - 17.5 g/dL LAB HEMETOLOGY METHOD 06/06/2024 8:35 AM EDT [facility] Hematocrit 26.2(L) 42.0 - 54.0 % LAB HEMETOLOGY METHOD 06/06/2024 8:35 AM EDT [facility] MCV 80.9 79.0 - 98.0 FL LAB HEMETOLOGY METHOD 06/06/2024 8:35 AM EDT [facility] MCH 23.5(L) 27.0 - 32.0 pcg LAB HEMETOLOGY METHOD 06/06/2024 8:35 AM EDT [facility] MCHC 29.0(L) 32.0 - 37.0 g/dL LAB HEMETOLOGY METHOD 06/06/2024 8:35 AM EDT [facility] RDW 16.8(H) 11.0 - 15.0 % LAB HEMETOLOGY METHOD 06/06/2024 8:35 AM EDT [facility] Platelets 264 130 - 400 K/mcL LAB HEMETOLOGY METHOD 06/06/2024 8:35 AM EDT [facility] MPV 12.3(H) 7.0 - 11.0 FL LAB HEMETOLOGY METHOD 06/06/2024 8:35 AM EDT [facility] NRBC 0.0 <1.0 % LAB HEMETOLOGY METHOD 06/06/2024 8:35 AM EDT [facility] NRBC Absolute 0.00 <0.10 K/mcL LAB HEMETOLOGY METHOD 06/06/2024 8:35 AM EDT [facility] Blood Venous blood specimen / Unknown Venipuncture / Unknown 06/06/2024 5:35 AM EDT 06/06/2024 8:10 AM EDT us Laurence Florence MD LAB BLOOD ORDERABLES Final Resu lt [facility] [address] [place] [address], [place] [phone] documented in this encounter Visit Diagnoses Diagnosis Cellulitis of right lower limb End stage renal disease (CMS/HCC V24, CMS/HCC V28) End stage renal disease documented in this encounter Care Teams School Standards Coach Relationship Specialty Start Date End Date Cass Turcios MD [address] [place] [address] [address] [place] [address] PCP - General Geriatric Medicine 04/02/24 documented as of this encounter
--- OUTSIDE RECORDS SUMMARY | 2024-07-10 12:55 | XMS_ITS | Encounter Summary ---
Author Organization [facility], Address [address] [place] [address] Phone Care Team Providers Care Stone Sandblaster Name Role Phone Jade Lewis MD Primary Care Provider [phone] Reason for Visit * Reason Comments Med Refill Encounter Details Date Type Department Care Team (Late st Contact Info) Description 04/27/2019 Refill [facility] [address] [place] [address] Mercedes Law MD Social History [...] on filedocumented in this encounter Care Teams Stone Sandblaster Relationship Specialty Start Date End Date Jade Lewis MD [address] [place], [place] [phone] PCP - General Internal Medicine 04/25/22 documented as of this encounter
--- OUTSIDE RECORDS SUMMARY | 2024-07-10 12:56 | XMS_ITS | Clinical Summary ---
Author Organization [facility] Address [address] [facility] [address] [place] [address] Phone Care Team Providers Care House Worker Name Role Phone Jade Lewis MD Primary Care Provider + [phone] Allergies Active Allergy Reactions Criticality Noted Date [...] FOR WHEEZING 1 Active ergocalciferol 1.25 MG (98958 UT) capsule Take 1 capsule (50,000 Units total) by mouth 1 (one) time per week 4 capsule 5 1 Active cetirizine (ZyrTEC) 10 MG tablet Take 10 mg by mouth 1 (one) time each day Active Fluticasone-Salm eterol 100-50 MCG/ACT aerosol powder [facility] - [place], [place] - [id number] - [place], [place] [phone] 60.00 Each 5 30 INHALE 1 PUFF [...] mouth daily. Prescribed by Dr. Car Mcdonald (real estate clerk). 2 Active aspirin (ST ANITRA) 81 MG [...] asthma 03/31/2022 Overview (09/15/2022): 08/19/21 Eval at [facility]. Increase Advair to 100/50 F/u 6 months. 05/24/22 Eval at [facility], Dr Funez. Recommends Trelegy once daily. Plan for sleep study to assess need for CPAP. 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 Resolved Problems Problem [...] diabetes mellitus 06/12/2015 Overview (01/26/2021): Followed by [facility]. Last visit 06/23/15, HbA1c = 11.1%. Has diabetic nephropathy, retinopathy, and peripheral neuropathy. Switched to Novolin 70/30. Taking 23 units TID with meals, may titrate up/down depending on BG readings over the next few days. They are trying to submit PA for Lyrica. 04/27/16 F/u with Estefani Kaur, DO at [facility]. Titrate Novolog 70/30 to 22 units with breakfast, 30 units with dinner. If no improvement or if ongoing hypoglycemia will consider switchign to Levemir and Humalog; F/u 3 months 11/03/20 F/u [facility]. A1c > 12% Continue Lanuts 52 and Humalog 4-8 untsi with meals. Consider using NPH during peritoneal dialysis Encounters Date Type Department Care Team Description 07/03/2024 Orders Only [facility] [address] [address] Car Mcdonald MD 06/26/2024 Orders Only [facility] [address] [address] Car Mcdonald MD 06/26/2024 Treatment [facility] [address] [place] [address] Arely Hernández APRN End stage renal disease; Dependence on renal dialysis 06/19/2024 Orders Only [facility] [address] [address] Car Mcdonald MD 06/17/2024 Orders Only [facility] [address] [address] Car Mcdonald MD 06/12/2024 Treatment [facility] [address] [place] [address] Donny Griggs MD End stage renal disease; Dependence on renal dialysis 05/01/2024 Orders Only [facility] [address] [address] Car Mcdonald MD 2024 Orders Only [facility] [address] [address] Car Mcdonald MD 2024 Treatment [facility], [address] [place] [address] Arely Hernández, [employer] CUSTOM PROTECTION OFFICER 04/24/2024 Treatment [facility], [address] [place] [address] Malcolm Taylor MD End stage renal disease; Dependence on renal dialysis 04/24/2024 Orders Only [facility] [address] [address] Car Mcdonald MD 04/22/2024 Orders Only [facility] [address] [address] Car Mcdonald MD 04/19/2024 Orders Only [facility] [address] [address] Car Mcdonald MD 04/19/2024 Treatment [facility] [address] [place] [address] Arely Hernández, [employer] CUSTOM PROTECTION OFFICER from Last 3 Months Immunizations Immunization Administration [...] Visual Foot Exam 02/18/2019 Diabetes: Hemoglobin A1C 09/16/202406/17/ 025, 05/18/2024, 05/17/2024, Additional history exists Pneumococcal Vaccine: 50+ Ye [...] Priority Date/Time Associated Diagnosis Comments HEMATOLOGY Routine 07/03/2024 HEMATOLOGY Routine 06/26/2024 HEMATOLOGY Routine 06/19/2024 SPECIAL [...] 04/19/2024 CHEMISTRY Routine 04/19/2024 HEMATOLOGY Routine 04/19/2024 from Last 3 Months Results * (ABNORMAL) HEMATOLOGY (07/03/2024) Only the most recent of7 resultswithin the time period is included. Hemoglobin 10.2(L) 14.0 - 18.0 g/dL [facility] Hemoglobin x 3 30.6(L) 42.0 - 54.0 % [facility] 07/03/2024 07/04/2024 8:5 3 AM EDT Narrative [facility] - 07/04/2024 Unless otherwise specified, test(s) performed at: [facility], [address] [place] [id number] CLIP RIVETER: Homero Garcia M.D. For any questions, please call customer service at FREQUENCY:OTHER Resulting Agency Comment Specimen source: Blood Car Mcdonald MD LAB BLOOD ORDERABLES Final Re sult Performing Organization Address [facility] de Phone Number [facility] See order comments or contact performing lab Unknown, [place] * [facility]ET[facility] (06/17/2024) Only the most recent of4 resultswithin the time period is included. % Urea Reduction 79 65 - 80 % [facility] 06/17/2024 06/18/2024 8:2 7 AM EDT Narrative Resulting Agency Comment Specimen source: Plasma Car Mcdonald MD LAB BLOOD ORDERABLES Final Re sult Performing Organization Address [facility] de Phone Number [facility] See order comments or contact performing lab Unknown, [place] * (ABNORMAL) SPECIAL CHEMISTRY (06/17/2024) Hemoglobin A1C 6.9(H) 4.8 - 5.9 % [facility] 06/17/2024 06/18/2024 8:4 3 AM EDT Narrative [facility] - 06/18/2024 Unless otherwise specified, test(s) performed at: [facility], [address] [place] [address] CLIP RIVETER: Homero Garcia M.D. For any questions, please call customer service at FREQUENCY:MONTHLY Resulting Agency Comment Specimen source: Blood Car Mcdonald MD LAB BLOOD BANK TEST ORDERABLE S Final Result Performing Organization Address [facility] de Phone Number [facility] See order comments or contact performing lab Unknown, [place] * POST CHEMISTRY (06/17/2024) Only the most recent of4 resultswithin the time period is included. BUN Post Dialysis 19 6 - 19 mg/dL [facility] 06/17/2024 06/18/2024 8:2 7 AM EDT Narrative [facility] - 06/18/2024 Unless otherwise specified, test(s) performed at: [facility], [address] [place], [place] [id number] CLIP RIVETER: Homero Garcia M.D. For any questions, please call customer service at FREQUENCY:MONTHLY Resulting Agency Comment Specimen source: Plasma Car Mcdonald MD LAB BLOOD ORDERABLES Final Re sult Performing Organization Address [facility] de Phone Number [facility] See order comments or contact performing lab Unknown, [place] * IMMUNO CHEMISTRY (06/17/2024) Only the most recent of2 resultswithin the time period is included. Hep B Surface Ag Negative Negative [facility] 06/17/2024 06/18/2024 8:4 0 AM EDT Narrative Resulting Agency Comment Specimen source: Serum Car Mcdonald MD LAB BLOOD ORDERABLES Final Re sult Performing Organization Address [facility] de Phone Number [facility] See order comments or contact performing lab Unknown, [place] * (ABNORMAL) [facility] Chemistry (06/17/2024) Only the most recent of7 resultswithin the time period is included. PTH 584(H) 16 - 80 pg/mL [facility] 06/17/2024 06/18/2024 8:3 9 AM EDT Narrative [facility] - 06/18/2024 Unless otherwise specified, test(s) performed at: [facility], [address] [place], [place] [id number] CLIP RIVETER: Homero Garcia M.D. For any questions, please call customer service at FREQUENCY:MONTHLY Resulting Agency Comment Specimen source: Plasma Car Mcdonald MD LAB BLOOD ORDERABLES Final Re sult Performing Organization Address [facility] de Phone Number [facility] See order comments or contact performing lab Unknown, [place] * [facility] Lab Results (05/01/2024) Only the most recent of3 resultswithin the time period is included. eKt/V (Tattersall) 0.87 [facility] eKdrt/V 0.85 [facility] eNPCR 1.07 [facility] spKt/V Gotch 1.12 [facility] ge Center PCR 74.63 [facility] Center nPCR_HD 1.23 [facility] eKt/V [facility] sp[facility]t/V (Daugirdas II) 1.10 [facility] WSTDKT/V 2.0 [facility] 05/01/2024 05/01/2024 [facility] [place] Provider LAB BLOOD ORDERABLES Final Result Performing Organization Address City/State/[facility] Co de Phone Number [facility] Contact Performing lab Unknown, [place] from Last 3 Months Insurance [place] [facility] Medicare Medicaid [place] Care Teams House Worker Relationship Specialty Start Date End Date Jade Lewis MD [address] [place] [address] PCP - General Internal Medicine 04/25/22
--- OUTSIDE RECORDS SUMMARY | 2024-07-10 12:56 | XMS_ITS | Encounter Summary ---
Author Organization [facility] Address [address] [place] [address] Care Team Providers Care Demo Coordinator Name Role Phone Cass Turcios MD Primary Care Provider [phone] Encounter Details Date Type Department Care Team (Latest Contact Info) Description 05/17/2024 Lab Requisition [facility] - Main Lab [address] [facility] [place] [address] Laurence Florence MD [address] [place] [id number] Type 2 diabetes mellitus without complications (CMS/HCC [...] EDT Type 2 diabetes mellitus without complications ([facility]/HCC) End stage renal disease ([facility]) HEMOGLOBIN A1C Routine 05/17/2024 5:37 AM EDT Type 2 diabetes mellitus without complications (CMS/HCC) End stage renal disease ([facility]/HCC) BASIC METABOLIC PANEL Routine 05/17/2024 5:37 AM EDT Type 2 diabetes mellitus without complications ([facility]/HCC) End stage renal disease ([facility]/HCC) documented in this encounter Results * (ABNORMAL) Basic metabolic panel (05/17/2024 5:37 AM EDT) Sodium 135 133 - 145 mmol/L LAB CHEMISTRY METHOD 05/17/2024 11:32 AM [facility] Potassium 5.5 3.5 - 5.5 mmol/L LAB CHEMISTRY METHOD 05/17/2024 11:32 AM [facility] Chloride 95(L) 96 - 110 mmol/L LAB CHEMISTRY METHOD 05/17/2024 11:32 AM [facility] CO2 29 21 - 32 mmol/L LAB CHEMISTRY METHOD 05/17/2024 11:32 AM [facility] Anion Gap 11 3 - 11 LAB CHEMISTRY METHOD 05/17/2024 11:32 AM [facility] Glucose 173(H) 70 - 100 mg/dL LAB CHEMISTRY METHOD 05/17/2024 11:32 AM [facility] BUN 52(H) 5 - 25 mg/dL LAB CHEMISTRY METHOD 05/17/2024 11:32 AM [facility] Creatinine 7.48(H) 0.70 - 1.30 mg/dL LAB CHEMISTRY METHOD 05/17/2024 11:32 AM [facility] eGFR 7(L) >=60 mL/min/1. 73m2 LAB CHEMISTRY METHOD 05/17/2024 11:32 AM [facility] Comment:Calculation based on the??Chronic Kidney Disease Epidemiology Collaboration (CKD-EPI) equation refit??without adjustment for race. BUN/Creatinine Ratio 7.0 LAB CHEMISTRY METHOD 05/17/2024 11:32 AM EDT [facility] Calcium 9.0 8.5 - 10.5 mg/dL LAB CHEMISTRY METHOD 05/17/2024 11:32 AM EDT [facility] Blood Venous blood specimen / Unknown Venipuncture / Unknown 05/17/2024 5:37 AM EDT 05/17/2024 9:43 AM EDT us Laurence Florence MD LAB BLOOD ORDERABLES Final Resu lt Performing Organization Address [facility] de Phone Number [facility] [address] [place] [address], [place] [phone] * (ABNORMAL) Hemoglobin A1c (05/17/2024 5:37 AM EDT) Hemoglobin A1C 7.1(H) <6.5 % LAB CHEMISTRY METHOD 05/17/2024 1:30 PM EDT [facility] Mean Bld Glu Estim. 157 mg/dL LAB CHEMISTRY METHOD 05/17/2024 1:30 PM EDT [facility] Blood Venous blood specimen / Unknown Venipuncture / Unknown 05/17/2024 5:37 AM EDT 05/17/2024 9:43 AM EDT us Laurence Florence MD LAB BLOOD ORDERABLES Final Resu lt Performing Organization Address City/[facility]/ZIP Co de Phone Number [facility] [address] [place] [address], [place] [phone] * (ABNORMAL) Complete blood count (05/17/2024 5:37 AM EDT) WBC 16.6(H) 4.8 - 10.8 K/[facility] LAB HEMETOLOGY METHOD 05/17/2024 10:40 AM EDT [facility] RBC 3.70(L) 4.50 - 5.50 M/[facility] LAB HEMETOLOGY METHOD 05/17/2024 10:40 AM [facility] Hemoglobin 8.9(L) 13.5 - 17.5 g/dL LAB HEMETOLOGY METHOD 05/17/2024 10:40 AM [facility] Hematocrit 30.1(L) 42.0 - 54.0 % LAB HEMETOLOGY METHOD 05/17/2024 10:40 AM [facility] MCV 82.5 79.0 - 98.0 FL LAB HEMETOLOGY METHOD 05/17/2024 10:40 AM [facility] MCH 24.4(L) 27.0 - 32.0 pcg LAB HEMETOLOGY METHOD 05/17/2024 10:40 AM [facility] MCHC 29.6(L) 32.0 - 37.0 g/dL LAB HEMETOLOGY METHOD 05/17/2024 10:40 AM [facility] RDW 18.3(H) 11.0 - 15.0 % LAB HEMETOLOGY METHOD 05/17/2024 10:40 AM [facility] Platelets 431(H) 130 - 400 K/mcL LAB HEMETOLOGY METHOD 05/17/2024 10:40 AM [facility] MPV 10.6 7.0 - 11.0 FL LAB HEMETOLOGY METHOD 05/17/2024 10:40 AM [facility] NRBC 0.0 <1.0 % LAB HEMETOLOGY METHOD 05/17/2024 10:40 AM [facility] NRBC Absolute 0.00 <0.10 K/mcL LAB HEMETOLOGY METHOD 05/17/2024 10:40 AM [facility] Blood Venous blood specimen / Unknown Venipuncture / Unknown 05/17/2024 5:37 AM EDT 05/17/2024 9:43 AM EDT us Laurence Florence MD LAB BLOOD ORDERABLES Final Resu lt [facility] [address] [place] [address], documented in this encounter Visit Diagnoses Diagnosis Type 2 diabetes mellitus without complications ([facility] V24, [facility] V28) End stage renal disease ([facility] V24, [facility] V28) End stage renal disease documented in this encounter Care Teams Demo Coordinator Relationship Specialty Start Date End Date Cass Turcios MD [address] [facility] [address] [place] [address] PCP - General Geriatric Medicine 04/02/24 documented as of this encounter
--- OUTSIDE RECORDS SUMMARY | 2024-07-10 12:56 | XMS_ITS | Encounter Summary ---
Author Organization [facility], Address [address] [place] [address] Phone Care Team Providers Care Master Control Operator Name Role Phone Jade Lewis MD Primary Care Provider [phone] Reason for Visit * Reason Comments Med Refill Encounter Details Date Type Department Care Team (Late st Contact Info) Description 10/27/2023 Refill [facility] [address] [place] [phone] Malcolm Taylor MD [address] [place] [address] [place] [address] Social History Tobacco Use Types Packs/Day Years [...] on filedocumented in this encounter Care Teams Master Control Operator Relationship Specialty Start Date End Date Jade Lewis MD [address] [place] [address] PCP - General Internal Medicine 04/25/22 documented as of this encounter
--- OUTSIDE RECORDS SUMMARY | 2024-07-10 12:56 | XMS_ITS | Encounter Summary ---
Author Organization [facility] Address [address] [place] [address] Care Team Providers Care Manager Program Management Name Role Phone Cass Turcios MD Primary Care Provider [phone] Encounter Details Date Type Department Care Team (Late st Contact Info) Description 05/18/2024 Lab Requisition [facility] - Main Lab 299 [facility] [place] [address] Elsy Christina PA [address] [address] Unspecified systolic (congestive) heart failure ([facility] V24, CMS/HCC V28); Type 2 diabetes mellitus without complications (CMS/HCC V24, CMS/HCC V28); End stage renal disease (CMS/HCC V24, CMS/[facility] V28) Social History Tobacco Use Types Packs/Day [...] AM EDT Unspecified systolic (congestive) heart failure ([facility]/HCC) Type 2 diabetes mellitus without complications (CMS/HCC) [...] K/mcL LAB HEMETOLOGY METHOD 05/18/2024 10:27 AM [facility] RBC 3.60(L) 4.50 - 5.50 M/mcL LAB HEMETOLOGY METHOD 05/18/2024 10:27 AM [facility] Hemoglobin 8.8(L) 13.5 - 17.5 g/dL LAB HEMETOLOGY METHOD 05/18/2024 10:27 AM [facility] Hematocrit 29.6(L) 42.0 - 54.0 % LAB HEMETOLOGY METHOD 05/18/2024 10:27 AM [facility] MCV 83.1 79.0 - 98.0 FL LAB HEMETOLOGY METHOD 05/18/2024 10:27 AM [facility] MCH 24.7(L) 27.0 - 32.0 pcg LAB HEMETOLOGY METHOD 05/18/2024 10:27 AM [facility] MCHC 29.7(L) 32.0 - 37.0 g/dL LAB HEMETOLOGY METHOD 05/18/2024 10:27 AM [facility] RDW 18.3(H) 11.0 - 15.0 % LAB HEMETOLOGY METHOD 05/18/2024 10:27 AM [facility] Platelets 433(H) 130 - 400 K/mcL LAB HEMETOLOGY METHOD 05/18/2024 10:27 AM [facility] MPV 10.5 7.0 - 11.0 FL LAB HEMETOLOGY METHOD 05/18/2024 10:27 AM [facility] NRBC 0.0 <1.0 % LAB HEMETOLOGY METHOD 05/18/2024 10:27 AM [facility] NRBC Absolute 0.00 <0.10 K/mcL LAB HEMETOLOGY METHOD 05/18/2024 10:27 AM [facility] Neutrophils Relative 75.0 % LAB HEMETOLOGY METHOD 05/18/2024 10:27 AM [facility] Lymphocytes Relative 15.7 % LAB HEMETOLOGY METHOD 05/18/2024 10:27 AM [facility] Monocytes Relative 5.9 % LAB HEMETOLOGY METHOD 05/18/2024 10:27 AM [facility] Eosinophils Relative 2.5 % LAB HEMETOLOGY METHOD 05/18/2024 10:27 AM [facility] Basophils Relative 0.3 % LAB HEMETOLOGY METHOD 05/18/2024 10:27 AM [facility] Immature Granulocytes Relative 0.6 % LAB HEMETOLOGY METHOD 05/18/2024 10:27 AM [facility] Neutrophils Absolute 11.02(H) 1.50 - 7.00 K/mcL LAB HEMETOLOGY METHOD 05/18/2024 10:27 AM EDT [facility] Lymphocytes Absolute 2.30 1.00 - 5.00 K/[facility] LAB HEMETOLOGY METHOD 05/18/2024 10:27 AM EDT [facility] Monocytes Absolute 0.87 0.20 - 1.00 K/[facility] LAB HEMETOLOGY METHOD 05/18/2024 10:27 AM EDT [facility] Eosinophils Absolute 0.37 0.00 - 0.50 K/[facility] LAB HEMETOLOGY METHOD 05/18/2024 10:27 AM EDT [facility] Basophils Absolute 0.04 0.00 - 0.20 K/[facility] LAB HEMETOLOGY METHOD 05/18/2024 10:27 AM EDT [facility] Immature Granulocytes Absolute 0.09(H) 0.00 - 0.03 K/[facility] LAB HEMETOLOGY METHOD 05/18/2024 10:27 AM EDT [facility] Blood Venous blood specimen / Unknown Venipuncture / Unknown 05/18/2024 7:20 AM EDT 05/18/2024 9:58 AM EDT us Elsy MONTERO LAB BLOOD ORDERABLES Final Re sult [facility] [address] [place] [address], * (ABNORMAL) Hemoglobin A1c (05/18/2024 7:20 AM EDT) Hemoglobin A1C 7.2(H) <6.5 % LAB CHEMISTRY METHOD 05/19/2024 12:06 PM EDT [facility] Mean Bld Glu Estim. 160 mg/dL LAB CHEMISTRY METHOD 05/19/2024 12:06 PM EDT [facility] Blood Venous blood specimen / Unknown Venipuncture / Unknown 05/18/2024 7:20 AM EDT 05/18/2024 9:58 AM EDT us Elsy MONTERO LAB BLOOD ORDERABLES Final Re sult [facility] [address] [place] [address], [place] [phone] * (ABNORMAL) Basic metabolic panel (05/18/2024 7:20 AM EDT) Sodium 136 133 - 145 mmol/L LAB CHEMISTRY METHOD 05/18/2024 10:41 AM [facility] Potassium 4.8 3.5 - 5.5 mmol/L LAB CHEMISTRY METHOD 05/18/2024 10:41 AM [facility] Chloride 100 96 - 110 mmol/L LAB CHEMISTRY METHOD 05/18/2024 10:41 AM [facility] CO2 28 21 - 32 mmol/L LAB CHEMISTRY METHOD 05/18/2024 10:41 AM [facility] Anion Gap 8 3 - 11 LAB CHEMISTRY METHOD 05/18/2024 10:41 AM [facility] Glucose 77 70 - 100 mg/dL LAB CHEMISTRY METHOD 05/18/2024 10:41 AM [facility] BUN 43(H) 5 - 25 mg/dL LAB CHEMISTRY METHOD 05/18/2024 10:41 AM [facility] Creatinine 6.49(H) 0.70 - 1.30 mg/dL LAB CHEMISTRY METHOD 05/18/2024 10:41 AM [facility] eGFR 9(L) >=60 mL/min/1. 73m2 LAB CHEMISTRY METHOD 05/18/2024 10:41 AM [facility] Comment:Calculation based on the??Chronic Kidney Disease Epidemiology Collaboration (CKD-EPI) equation refit??without adjustment for race. BUN/Creatinine Ratio 6.6 LAB CHEMISTRY METHOD 05/18/2024 10:41 AM [facility] Calcium 9.0 8.5 - 10.5 mg/dL LAB CHEMISTRY METHOD 05/18/2024 10:41 AM EDT [facility] Blood Venous blood specimen / Unknown Venipuncture / Unknown 05/18/2024 7:20 AM EDT 05/18/2024 9:58 AM EDT us Elsy MONTERO LAB BLOOD ORDERABLES Final Re sult [facility] [address] [place] [address], documented in this encounter Visit Diagnoses Diagnosis Unspecified systolic (congestive) heart failure ([facility] V24, [facility] V28) Type 2 diabetes mellitus without complications ([facility] V24, [facility] V28) End stage renal disease ([facility] V24, [facility] V28) End stage renal disease documented in this encounter Care Teams Manager Program Management Relationship Specialty Start Date End Date Cass Turcios MD [address] [place] [address] [address] [place] [address] PCP - General Geriatric Medicine 04/02/24 documented as of this encounter
--- OUTSIDE RECORDS SUMMARY | 2024-07-10 12:56 | XMS_ITS | Encounter Summary ---
Author Organization [facility], Address [address] [place] [address] Phone Care Team Providers Care Passenger Car Upholsterer Apprentice Name Role Phone Jade Lewis MD Primary Care Provider [phone] Reason for Visit * Reason Comments Med Refill Encounter Details Date Type Department Care Team ([facility] st Contact Info) Description 11/27/2020 Refill [facility] [address] [place] [phone] Alejandro Santana MD [address] [place] [phone] Social History Tobacco Use Types Packs/Day Years [...] on filedocumented in this encounter Care Teams Passenger Car Upholsterer Apprentice Relationship Specialty Start Date End Date Jade Lewis MD [address] [place] [address] PCP - General Internal Medicine 04/25/22 documented as of this encounter
--- OUTSIDE RECORDS SUMMARY | 2024-07-10 12:56 | XMS_ITS | Encounter Summary ---
Author Organization [facility], Address [address] [place] [address] Phone Care Team Providers Care Flask Pusher Name Role Phone Jade Lewis MD Primary Care Provider [phone] Reason for Visit * Reason Comments Med Refill Encounter Details Date Type Department Care Team (Late st Contact Info) Description 09/17/2022 Refill [facility] [address] [place] [phone] Malcolm Taylor MD [address] [place] [address] [place] [address] Social History Tobacco Use Types Packs/Day Years [...] on filedocumented in this encounter Care Teams Flask Pusher Relationship Specialty Start Date End Date Jade Lewis MD [address] [place] [address] PCP - General Internal Medicine 04/25/22 documented as of this encounter
--- OUTSIDE RECORDS SUMMARY | 2024-07-10 12:56 | XMS_ITS | Encounter Summary ---
Author Organization [facility] Address [address] [place] [address] Care Team Providers Care Senior Policy Analyst Name Role Phone Cass Turcios MD Primary Care Provider [phone] Encounter Details Date Type Department Care Team (Late st Contact Info) Description 05/20/2024 Lab Requisition [facility] - Main Lab 299 [facility] [place] [address] Laurence Florence MD [address] [place] [address] Elevated white blood cell count, unspecified Social [...] LAB CHEMISTRY METHOD 05/20/2024 1:59 PM EDT [facility] Alkaline Phosphatase 142(H) 42 - 121 unit/L LAB CHEMISTRY METHOD 05/20/2024 1:59 PM EDT [facility] Total Protein 6.1 6.0 - 8.0 g/dL LAB CHEMISTRY METHOD 05/20/2024 1:59 PM EDT [facility] Albumin 2.5(L) 3.2 - 5.0 g/dL LAB CHEMISTRY METHOD 05/20/2024 1:59 PM EDT [facility] Total Bilirubin 0.4 0.0 - 1.4 mg/dL LAB CHEMISTRY METHOD 05/20/2024 1:59 PM EDT [facility] Blood Venous blood specimen / Unknown Venipuncture / Unknown 05/20/2024 6:04 AM EDT 05/20/2024 11:40 AM EDT us Laurence Florence MD LAB BLOOD ORDERABLES Final Resu lt [facility] [address] [place] [address], * (ABNORMAL) Complete blood count (05/20/2024 6:04 AM EDT) WBC 15.6(H) 4.8 - 10.8 K/mcL LAB HEMETOLOGY METHOD 05/20/2024 1:18 PM EDT [facility] RBC 3.50(L) 4.50 - 5.50 M/mcL LAB HEMETOLOGY METHOD 05/20/2024 1:18 PM EDT [facility] Hemoglobin 8.6(L) 13.5 - 17.5 g/dL LAB HEMETOLOGY METHOD 05/20/2024 1:18 PM EDT [facility] Hematocrit 29.0(L) 42.0 - 54.0 % LAB HEMETOLOGY METHOD 05/20/2024 1:18 PM EDT [facility] MCV 82.9 79.0 - 98.0 FL LAB HEMETOLOGY METHOD 05/20/2024 1:18 PM EDT [facility] MCH 24.6(L) 27.0 - 32.0 pcg LAB HEMETOLOGY METHOD 05/20/2024 1:18 PM EDT [facility] MCHC 29.7(L) 32.0 - 37.0 g/dL LAB HEMETOLOGY METHOD 05/20/2024 1:18 PM EDT [facility] RDW 19.1(H) 11.0 - 15.0 % LAB HEMETOLOGY METHOD 05/20/2024 1:18 PM EDT [facility] Platelets 479(H) 130 - 400 K/mcL LAB HEMETOLOGY METHOD 05/20/2024 1:18 PM EDT [facility] MPV 11.3(H) 7.0 - 11.0 FL LAB HEMETOLOGY METHOD 05/20/2024 1:18 PM EDT [facility] NRBC 0.0 <1.0 % LAB HEMETOLOGY METHOD 05/20/2024 1:18 PM EDT [facility] NRBC Absolute 0.00 <0.10 K/mcL LAB HEMETOLOGY METHOD 05/20/2024 1:18 PM EDT [facility] Blood Venous blood specimen / Unknown Venipuncture / Unknown 05/20/2024 6:04 AM EDT 05/20/2024 11:40 AM EDT us Laurence Florence MD LAB BLOOD ORDERABLES Final Resu lt [facility] [address] [place] [address], documented in this encounter Visit Diagnoses Diagnosis Elevated white blood cell count, unspecified documented in this encounter Care Teams Senior Policy Analyst Relationship Specialty Start Date End Date Cass Turcios MD [address] [place] [address] [address] [place] [address] PCP - General Geriatric Medicine 04/02/24 documented as of this encounter
--- OUTSIDE RECORDS SUMMARY | 2024-07-10 12:56 | XMS_ITS | Encounter Summary ---
Author Organization [facility], Address [address] [place] [address] Phone Care Team Providers Care Visitor Use Assistant Name Role Phone Jade Lewis MD Primary Care Provider [phone] Reason for Visit * Reason Comments Med Refill Encounter Details Date Type Department Care Team (Late st Contact Info) Description 12/24/2022 Refill [facility] [address] [place] [phone] Car Mcdonlad MD [facility] [address] [place] [address] Social History Tobacco Use Types Packs/Day Years [...] on filedocumented in this encounter Care Teams Visitor Use Assistant Relationship Specialty Start Date End Date Jade Lewis MD [address] [place] [address] PCP - General Internal Medicine 04/25/22 documented as of this encounter
--- OUTSIDE RECORDS SUMMARY | 2024-07-10 12:56 | XMS_ITS | Encounter Summary ---
Author Organization [facility] Address [address] [place] [address] Care Team Providers Care Insurance Claims Adjuster Name Role Phone Cass Turcios MD Primary Care Provider [phone] Encounter Details Date Type Department Care Team (Late st Contact Info) Description 05/30/2024 Lab Requisition [facility] - Main Lab [address] [facility] [place] [address] Laurence Florence MD [address] [place] [address] Chronic respiratory failure with hypoxia (CMS/HCC V24, [...] LAB MICROBIOLOGY METHOD 06/04/2024 9:01 AM EDT [facility] Blood Venipuncture / Unknown 05/30/2024 7:41 AM EDT 05/30/2024 8:14 AM EDT us Laurence Florence MD LAB MICROBIOLOGY - [facility] MALAIKA HURD Final Result 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
--- OUTSIDE RECORDS SUMMARY | 2024-07-10 12:56 | XMS_ITS | Encounter Summary ---
Author Organization [facility], Address [address] [place] [address] Phone Care Team Providers Care Air Traffic Supervisor Name Role Phone Jade Lewis MD Primary Care Provider [phone] Reason for Visit * Reason Comments Med Refill Encounter Details Date Type Department Care Team ([facility] st Contact Info) Description 10/18/2023 Refill [facility] [address] [place] [phone] Malcolm Taylor MD [address] [place] [address] [place] [phone] Social History Tobacco Use Types Packs/Day Years [...] 10/19/2023 Unless otherwise specified, test(s) performed at: [facility], [address] [place] [address] PHARMACY TECHNICIAN: Homero Garcia M.D. For any questions, please call customer service at FREQUENCY:OTHER Resulting Agency Comment Specimen source: Blood us Car Mcdonald MD LAB BLOOD ORDERABLES Final Re sult [facility] See order comments or contact performing lab Unknown, [place] documented in this encounter Visit Diagnoses Not on filedocumented in this encounter Care Teams Air Traffic Supervisor Relationship Specialty Start Date End Date Jade Lewis MD [address] [place] [address] PCP - General Internal Medicine 04/25/22 documented as of this encounter
--- OUTSIDE RECORDS SUMMARY | 2024-07-10 12:56 | XMS_ITS | Encounter Summary ---
Author Organization [facility] Address [address] [place] [address] Phone Care Team Providers Care Bonding Equipment Operator Name Role Phone Jade Lewis MD Primary Care Provider [phone] Reason for Visit * Reason Comments Med Refill Encounter Details Date Type Department Care Team (Late st Contact Info) Description 07/23/2021 Refill [facility] [address] [place] [phone] Alejandro Santana MD [address] [place] [phone] Social History Tobacco Use Types Packs/Day Years [...] on filedocumented in this encounter Care Teams Bonding Equipment Operator Relationship Specialty Start Date End Date Jade Lewis MD [address] [place] [address] PCP - General Internal Medicine 04/25/22 documented as of this encounter
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
--- OUTSIDE RECORDS SUMMARY | 2024-07-10 12:56 | XMS_ITS | Encounter Summary ---
Author Organization [facility], Address [address] [place] [address] Phone Care Team Providers Care Machine Setter Name Role Phone Jade Lewis MD Primary Care Provider [phone] Reason for Visit * Reason Comments Med Refill Encounter Details Date Type Department Care Team ([facility] st Contact Info) Description 10/28/2020 Refill [facility] [address] [place] [phone] Alejandro Santana MD [address] [place] [phone] Social History Tobacco Use Types Packs/Day Years [...] on filedocumented in this encounter Care Teams Machine Setter Relationship Specialty Start Date End Date Jade Lewis MD [address] [place] [id number] PCP - General Internal Medicine 04/25/22 documented as of this encounter
--- OUTSIDE RECORDS SUMMARY | 2024-07-10 12:56 | XMS_ITS | Encounter Summary ---
Author Organization [facility] Address [address] [place] [address] Care Team Providers Care Hearing Aid Specialist Name Role Phone Cass Turcios MD Primary Care Provider [phone] Encounter Details Date Type Department Care Team (Latest Contact Info) Description 05/28/2024 Lab Requisition [facility] - Main Lab [address] [facility] [place] [address] Laurence Florence MD [address] [place] [id number] Anemia, unspecified; End stage renal disease (CMS/HCC [...] (ABNORMAL) Magnesium (05/29/2024 5:09 AM EDT) Pathologist [facility] Magnesium 1.8(L) 1.9 - 2.6 mg/dL LAB CHEMISTRY METHOD 05/29/2024 9:20 AM EDT [facility] Blood Venous blood specimen / Unknown Venipuncture / Unknown 05/29/2024 5:09 AM EDT 05/29/2024 8:42 AM EDT us Laurence Florence MD LAB BLOOD ORDERABLES Final Resu lt [facility] [address] [place] [address], * (ABNORMAL) Complete blood count (05/29/2024 5:09 AM EDT) [facility] WBC 10.8 4.8 - 10.8 K/mcL LAB HEMETOLOGY METHOD 05/29/2024 9:01 AM EDT [facility] RBC 3.50(L) 4.50 - 5.50 M/mcL LAB HEMETOLOGY METHOD 05/29/2024 9:01 AM EDT [facility] Hemoglobin 8.2(L) 13.5 - 17.5 g/dL LAB HEMETOLOGY METHOD 05/29/2024 9:01 AM EDT [facility] Hematocrit 28.4(L) 42.0 - 54.0 % LAB HEMETOLOGY METHOD 05/29/2024 9:01 AM EDT [facility] MCV 81.8 79.0 - 98.0 FL LAB HEMETOLOGY METHOD 05/[facility]24 [facility] MCH 23.6(L) 27.0 - 32.0 pcg LAB HEMETOLOGY METHOD 05/29/2024 9:01 AM [facility] MCHC 28.9(L) 32.0 - 37.0 g/dL LAB HEMETOLOGY METHOD 05/29/2024 9:01 AM [facility] RDW 18.2(H) 11.0 - 15.0 % LAB HEMETOLOGY METHOD 05/29/2024 9:[facility] Platelets 263 130 - 400 K/mcL LAB HEMETOLOGY METHOD 05/29/2024 9:01 AM [facility] MPV 11.2(H) 7.0 - 11.0 FL LAB HEMETOLOGY METHOD 05/29/2024 9:[facility] NRBC 0.0 <1.0 % LAB HEMETOLOGY METHOD 05/29/2024 9:01 AM [facility] NRBC Absolute 0.00 <0.10 K/mcL LAB HEMETOLOGY METHOD 05/29/2024 9:01 AM [facility] Blood Venous blood specimen / Unknown Venipuncture / Unknown 05/29/2024 5:09 AM EDT 05/29/2024 8:42 AM EDT us Laurence Florence MD LAB BLOOD ORDERABLES Final Resu lt [facility] [address] [place] [address], * (ABNORMAL) Renal function panel (05/29/2024 5:09 AM EDT) Sodium 135 133 - 145 mmol/L LAB CHEMISTRY METHOD 05/29/2024 10:03 AM T [facility] Potassium 4.7 3.5 - 5.5 [...] 05/29/2024 10:03 AM [facility] Blood Venous blood specimen / Unknown Venipuncture / Unknown 05/29/2024 5:09 AM EDT 05/29/2024 8:42 AM EDT us Laurence Florence MD LAB BLOOD ORDERABLES Final Resu lt [facility] [address] [place] [address], documented in this encounter Visit Diagnoses Diagnosis Anemia, unspecified End stage renal disease (CMS/HCC V24, CMS/HCC V28) End stage renal disease Unspecified asthma, uncomplicated documented in this encounter Care Teams Hearing Aid Specialist Relationship Specialty Start Date End Date Cass Turcios MD [address] [facility] [address] [place] [address] PCP - General Geriatric Medicine 04/02/24 documented as of this encounter
--- OUTSIDE RECORDS SUMMARY | 2024-07-10 12:56 | XMS_ITS | Encounter Summary ---
Author Organization [facility] Address [address] [place] [address] Care Team Providers Care Sex Crimes Detective Name Role Phone Cass Turcios MD Primary Care Provider [phone] Encounter Details Date Type Department Care Team (Late st Contact Info) Description 05/21/2024 Lab Requisition [facility] - Main Lab [address] [facility] [place] [address] Laurence Florence MD [address] [place] [id number] Chronic combined systolic (congestive) and diastolic (congestive) [...] your loved ones. For example, child development director or elderly care for an older [...] CBC auto differential (05/21/2024 5:40 AM EDT) [facility] WBC 14.4(H) 4.8 - 10.8 K/mcL LAB HEMETOLOGY METHOD 05/21/2024 12:49 PM [facility] RBC 3.80(L) 4.50 - 5.50 M/mcL LAB HEMETOLOGY METHOD 05/21/2024 12:49 PM [facility] Hemoglobin 9.5(L) 13.5 - 17.5 g/dL LAB HEMETOLOGY METHOD 05/21/2024 12:49 PM [facility] Hematocrit 33.1(L) 42.0 - 54.0 % LAB HEMETOLOGY METHOD 05/21/2024 12:49 PM [facility] MCV 87.1 79.0 - 98.0 FL LAB HEMETOLOGY METHOD 05/21/2024 12:49 PM [facility] MCH 25.0(L) 27.0 - 32.0 pcg LAB HEMETOLOGY METHOD 05/21/2024 12:49 PM [facility] MCHC 28.7(L) 32.0 - 37.0 g/dL LAB HEMETOLOGY METHOD 05/21/2024 12:49 PM [facility] RDW 19.6(H) 11.0 - 15.0 % LAB HEMETOLOGY METHOD 05/21/2024 12:49 PM [facility] Platelets 447(H) 130 - 400 K/mcL LAB HEMETOLOGY METHOD 05/21/2024 12:49 PM EDT [facility] MPV 11.3(H) 7.0 - 11.0 FL LAB HEMETOLOGY [facility]24 12[facility] NRBC 0.0 <1.0 % LAB HEMETOLOGY METHOD 05/21/2024 12:[facility] NRBC Absolute 0.00 <0.10 K/mcL LAB HEMETOLOGY METHOD 05/21/2024 12:49 PM [facility] Neutrophils Relative 76.8 % LAB HEMETOLOGY METHOD 05/21/2024 12:49 PM [facility] Lymphocytes Relative 13.0 % LAB HEMETOLOGY METHOD 05/21/2024 12:49 PM [facility] Monocytes Relative 7.0 % LAB HEMETOLOGY METHOD 05/21/2024 12:49 PM [facility] Eosinophils Relative 2.0 % LAB HEMETOLOGY METHOD 05/21/2024 12:49 PM [facility] Basophils Relative 0.4 % LAB HEMETOLOGY METHOD 05/21/2024 12:49 PM [facility] Immature Granulocytes Relative 0.8 % LAB HEMETOLOGY METHOD 05/21/2024 12:49 PM [facility] Neutrophils Absolute 11.05(H) 1.50 - 7.00 K/mcL LAB HEMETOLOGY METHOD 05/21/2024 12:[facility] Lymphocytes Absolute 1.87 1.00 - 5.00 K/mcL LAB HEMETOLOGY METHOD 05/21/2024 12:49 PM [facility] Monocytes Absolute 1.00 0.20 - 1.00 K/mcL LAB HEMETOLOGY METHOD 05/21/2024 12:49 PM EDT [facility] Eosinophils Absolute 0.29 0.00 - 0.50 K/[facility] LAB HEMETOLOGY METHOD 05/21/2024 12:49 PM EDT [facility] Basophils Absolute 0.06 0.00 - 0.20 K/mcL LAB HEMETOLOGY METHOD 05/21/2024 12:49 PM EDT [facility] Immature Granulocytes Absolute 0.11(H) 0.00 - 0.03 K/[facility] LAB HEMETOLOGY METHOD 05/21/2024 12:49 PM EDT [facility] Blood Venous blood specimen / Unknown Venipuncture / Unknown 05/21/2024 5:40 AM EDT 05/21/2024 11:19 AM EDT us Laurence Florence MD LAB BLOOD ORDERABLES Final Resu lt [facility] [address] [place] [address], [place] [phone] * (ABNORMAL) Basic metabolic panel (05/21/2024 5:40 AM EDT) Sodium 137 133 - 145 mmol/L LAB CHEMISTRY METHOD 05/21/2024 2:38 PM [facility] Potassium 5.3 3.5 - 5.5 mmol/L LAB CHEMISTRY METHOD 05/21/2024 2:38 PM T [facility] Comment:Hemolysis present Chloride 99 96 - 110 mmol/L LAB CHEMISTRY METHOD 05/21/2024 2:38 PM [facility] CO2 27 21 - 32 mmol/L LAB CHEMISTRY METHOD 05/21/2024 2:38 PM [facility] Anion Gap 11 3 - 11 LAB CHEMISTRY METHOD 05/21/2024 2:38 PM [facility] Glucose 76 70 - 100 [...] Resu lt [facility] [address] [place] [address], documented in this encounter Visit Diagnoses Diagnosis Chronic combined systolic (congestive) and diastolic (congestive) heart failure (CMS/HCC V24, CMS/HCC V28) End stage renal disease (CMS/HCC V24, CMS/HCC V28) End stage renal disease documented in this encounter Care Teams Sex Crimes Detective Relationship Specialty Start Date End Date Cass Turcios MD [address] [place] [address] [address] [place] [address] PCP - General Geriatric Medicine 04/02/24 documented as of this encounter
--- OUTSIDE RECORDS SUMMARY | 2024-07-10 12:56 | XMS_ITS | Encounter Summary ---
Author Organization [facility] Address [address] [place] [address] Care Team Providers Care Glass Laminating Operator Name Role Phone Cass Turcios MD Primary Care Provider [phone] Encounter Details Date Type Department Care Team (Latest Contact Info) Description 05/24/2024 Lab Requisition [facility] - Main Lab [address] [facility] [place] [address] Laurence Florence MD [address] [place] [address] Chronic combined systolic (congestive) and diastolic (congestive) [...] your loved ones. For example, children's tutor or elderly care for an older adult? [...] mellitus without complications End stage renal disease ([facility]/HCC) BASIC METABOLIC PANEL Routine 05/24/2024 5:56 AM EDT Chronic combined systolic (congestive) and diastolic (congestive) heart failure Type 2 diabetes mellitus without complications End stage renal disease ([facility]/HCC) documented in this encounter Results * (ABNORMAL) CBC auto differential (05/24/2024 5:56 AM EDT) [facility] WBC 9.3 4.8 - 10.8 K/mcL LAB HEMETOLOGY METHOD 05/24/2024 9:31 AM [facility] RBC 3.40(L) 4.50 - 5.50 M/mcL LAB HEMETOLOGY METHOD 05/24/2024 9:31 AM [facility] Hemoglobin 8.5(L) 13.5 - 17.5 g/dL LAB HEMETOLOGY METHOD 05/24/2024 9:31 AM [facility] Hematocrit 28.2(L) 42.0 - 54.0 % LAB HEMETOLOGY METHOD 05/24/2024 9:31 AM [facility] MCV 82.0 79.0 - 98.0 FL LAB HEMETOLOGY METHOD 05/24/2024 9:31 AM [facility] MCH 24.7(L) 27.0 - 32.0 pcg LAB HEMETOLOGY METHOD 05/24/2024 9:31 AM [facility] MCHC 30.1(L) 32.0 - 37.0 g/dL LAB HEMETOLOGY METHOD 05/24/2024 9:31 AM [facility] RDW 17.8(H) 11.0 - 15.0 % LAB HEMETOLOGY METHOD 05/24/2024 9:31 AM [facility] Platelets 335 130 - 400 K/mcL LAB HEMETOLOGY METHOD 05/24/2024 9:31 AM [facility] MPV 10.5 7.0 - 11.0 FL LAB HEMETOLOGY METHOD 05/24/2024 9:31 AM [facility] NRBC 0.0 <1.0 % LAB HEMETOLOGY METHOD 05/24/2024 9:31 AM [facility] NRBC Absolute 0.00 <0.10 K/mcL LAB HEMETOLOGY METHOD 05/24/2024 9:31 AM [facility] Neutrophils Relative 67.5 % LAB HEMETOLOGY METHOD 05/24/2024 9:31 AM [facility] Lymphocytes Relative 16.4 % LAB HEMETOLOGY METHOD 05/24/2024 9:31 AM [facility] Monocytes Relative 10.6 % LAB HEMETOLOGY METHOD 05/24/2024 9:31 AM [facility] Eosinophils Relative 4.5 % LAB HEMETOLOGY METHOD 05/24/2024 9:31 AM [facility] Basophils Relative 0.4 % LAB HEMETOLOGY METHOD 05/24/2024 9:31 AM [facility] Immature Granulocytes Relative 0.6 % LAB HEMETOLOGY METHOD 05/24/2024 9:31 AM [facility] Neutrophils Absolute 6.24 1.50 - 7.00 K/mcL LAB HEMETOLOGY METHOD 05/24/2024 9:31 AM [facility] Lymphocytes Absolute 1.52 1.00 - 5.00 K/mcL LAB HEMETOLOGY METHOD 05/24/2024 9:31 AM [facility] Monocytes Absolute 0.98 0.20 - 1.00 K/mcL LAB HEMETOLOGY METHOD 05/24/2024 9:31 AM EDT [facility] Eosinophils Absolute 0.42 0.00 - [...] Resu lt [facility] [address] [place] [address], [place] [phone] * (ABNORMAL) Basic metabolic panel (05/24/2024 5:56 AM EDT) Sodium 134 133 - 145 mmol/L LAB CHEMISTRY METHOD 05/24/2024 9:53 AM [facility] Potassium 4.8 3.5 - 5.5 mmol/L LAB CHEMISTRY METHOD 05/24/2024 9:53 AM [facility] Chloride 100 96 - 110 mmol/L LAB CHEMISTRY METHOD 05/24/2024 9:53 AM [facility] CO2 26 21 - 32 mmol/L LAB CHEMISTRY METHOD 05/24/2024 9:53 AM [facility] Anion Gap 8 3 - 11 LAB CHEMISTRY METHOD 05/24/2024 9:53 AM [facility] Glucose 131(H) 70 - 100 mg/dL LAB CHEMISTRY METHOD 05/24/2024 9:53 AM EDT [facility] BUN 67(H) 5 - 25 [...] Resu lt [facility] [address] [place] [address], documented in this encounter Visit Diagnoses Diagnosis Chronic combined systolic (congestive) and diastolic (congestive) heart failure (CMS/HCC V24, CMS/HCC V28) Type 2 diabetes mellitus without complications (CMS/HCC V24, CMS/HCC V28) End stage renal disease (CMS/HCC V24, CMS/HCC V28) End stage renal disease documented in this encounter Care Teams Glass Laminating Operator Relationship Specialty Start Date End Date Cass Turcios MD [address] [place], [place] [id number] [place] [address] PCP - General Geriatric Medicine 04/02/24 documented as of this encounter
--- OUTSIDE RECORDS SUMMARY | 2024-07-10 12:56 | XMS_ITS | Encounter Summary ---
Author Organization [facility] Address [address] [place] [address] Phone Care Team Providers Care Front End Developer Javascript Html Css Name Role Phone Jade Lewis MD Primary Care Provider [phone] Reason for Visit * Reason Comments Med Refill Encounter Details Date Type Department Care Team (Late st Contact Info) Description 04/30/2021 Refill [facility] [address] [place] [phone] Alejandro Santana MD [address] [place] [phone] Social History Tobacco Use Types Packs/Day Years [...] on filedocumented in this encounter Care Teams Front End Developer Javascript Html Css Relationship Specialty Start Date End Date Jade Lewis MD [address] [place] [address] PCP - General Internal Medicine 04/25/22 documented as of this encounter
== END 2024-07-09 11:31 | disposition home or self-care (01) ==
LOC: HO.HOSX 11:30
PROVIDERS: Visit Provider Orthopaedic Surgery
DX: Z13.89 Encounter for screening for other disorder (principal)

== ENCOUNTER 2024-07-16 10:22 | Outpatient (REF) | payer MEDICARE, MEDICAID, SELFPAY ==
--- NOTE | ~2024-07-16 | XR_ITS ---
EXAMINATION: XR HAND 3 OR MORE VIEWS RIGHT HISTORY: M79.642 - Pain in left hand COMPARISON: Comparison is made with the prior examination dated 06/11/2024. FINDINGS: Three views of the right hand are submitted. The bones are osteopenic. There is no fracture or dislocation. The joint spaces are preserved. Again seen is extensive vascular calcification. XR/XR hand RT min 3V IMPRESSION: Osteopenia. Extensive vascular calcifications. Otherwise unremarkable examination of the right hand. Electronically signed by: Mj Hager MD 07/17/2024 08:38 AM EDT
--- OUTSIDE RECORDS SUMMARY | 2024-07-17 11:22 | XMS_ITS | Encounter Summary ---
Author Organization [facility] Address [address] [facility] [address] [place] [address] Phone Care Team Providers Care Senior Clinical Consultant Name Role Phone Jade Lewis MD Primary Care Provider + [phone] Reason for Visit * Reason Onset Date Comments Med Refill 04/19/2022 Encounter Details Date Type Department Care Team (Late st Contact Info) Description 04/19/2022 Refill [facility] [address] [place] [phone] Loida Madsen Social History Tobacco Use Types [...] filedocumented in this encounter Care Teams Senior Clinical Consultant Relationship Specialty Start Date End Date Jade Lewis MD [address] [place] [address] PCP - General Internal Medicine 04/25/22 documented as of this encounter
--- OUTSIDE RECORDS SUMMARY | 2024-07-17 11:22 | XMS_ITS | Encounter Summary ---
Author Organization [facility], Address [address] [place] [address] Phone Care Team Providers Care Electronic Video Games Servicer Name Role Phone Jade Lewis MD Primary Care Provider + [phone] Encounter Details Date Type Department Care Team (Late st Contact Info) Description 07/17/2024 Treatment [facility], [address] [place] [phone] Arely Hernández, SOLID WASTE MANAGER [address] [place] [address] End stage renal disease; Dependence on renal [...] Dialysis Note - Arely Hernández APRN - 07/17/2024 12:00 AM EDT Patient: BEAU MARIE, 1955, 69y, M Dialysis Location: [facility] Attending Cylinder Honer: Car Mcdonald Service Date: 07/17/2024 Service Provider: Arely Hernández NP I met [...] DIALYSIS PRESCRIPTION IHD 3x Week Start date: 06/28/24 Dialyzer: 180NRe Optiflux BFR: 450 DFR: Manual 800 Potassium: 2.0 Sodium: 138 EDW: 61 Duration: 3:30 Calcium: 2.50 Bicarb: 38 Rx updated on: 06/28/2024 TREATMENT ASSESSMENT BP Sit Pre 07/15/2024: 209/101 07/12/2024: 197/118 07/10/2024: 210/137 BP Sit Post 07/15/2024: 162/93 07/12/2024: 176/96 07/10/2024: 160/100 Tx Duration 07/15/2024: 3:25 07/12/2024: 3:49 07/10/2024: 3:32 Missed Treatments 0 - last 30 days 0 - last 60 days FLUID ASSESSMENT EDW (kg) 07/15/2024: 61.0 07/12/2024: 61.0 07/10/2024: 61.0 Weight Pre (kg) 07/15/2024: 64.4 07/12/2024: 63.6 07/10/2024: 65.4 Weight Post (kg) 07/15/2024: 62.1 07/12/2024: 60.0 07/10/2024: 62.0 PWV (kg) 07/15/2024: 1.1 07/12/2024: -1.0 07/10/2024: 1.0 UF Rate (mL/kg/hr) 07/15/2024: 10.8 07/12/2024: 15.7 07/10/2024: 15.5 ADEQUACY ASSESSMENT spKt/V, URR 07/10/2024: 1.26, 63.0 06/17/2024: 1.87, 79.0 05/01/2024: 1.1, 59.0 ACCESS ASSESSMENT Access Type: CVCatheter Access SubType: Tunneled Access Status: Active (In Use) - 08/09/2023 Access Location: Neck Placed: 08/08/2023 ANEMIA ASSESSMENT HGB, TSAT 07/10/2024: 10.5, 21.0 07/03/2024: 10.2, - 06/26/2024: 9.9, - Ferritin 07/10/2024: 753.0 06/17/2024: 1096.0 04/19/2024: 1172.0 Mircera, IVP (mcg) 07/03/2024: 200 06/19/2024: 150 05/01/2024: 100 Iron Sucrose (Venofer) (mg) 07/15/2024: 100 07/12/2024: 50 07/05/2024: 50 BMM ASSESSMENT PTH, Intact 07/10/2024: 451.0 06/17/2024: 584.0 04/19/2024: 773.0 Calcium, Phosphorus 07/10/2024: 8.6, 7.5 06/17/2024: 8.4, 6.2 04/19/2024: 7.7, 7.9 Vitamin D (Calcitriol) Oral (mcg) 07/15/2024: 1.50 07/12/2024: 1.50 07/10/2024: 1.50 Cinacalcet (Sensipar) (mg) 07/15/2024: 60 07/12/2024: 60 07/10/2024: 60 NUTRITION ASSESSMENT Potassium, Albumin 07/10/2024: 5.4, 3.6 06/17/2024: 5.6, 3.5 04/19/2024: 4.9, 3.1 eNPCR 07/10/2024: 1.01 05/01/2024: 1.07 2024: 1.05 DIAGNOSIS Chief Complaint: N18.6 End stage renal disease Comments: Patient seen and examined. VSS with no complaints to offer. S1, S2, RRR. LS CTA bilaterally. Access patent. Patient is stable. Patient data updated 07/17/2024 at 8:06 AM Signed By: Arely Hernández NP on 07/17/2024 8:06:33 AM documented in this encounter Plan of Treatment Not on file documented as of this encounter Visit Diagnoses Diagnosis End stage renal disease Dependence on renal dialysis documented in this encounter Care Teams Electronic Video Games Servicer Relationship Specialty Start Date End Date Jade Lewis MD [address] [place], [place] [id number] PCP - General Internal Medicine 04/25/22 documented as of this encounter
--- OUTSIDE RECORDS SUMMARY | 2024-07-17 11:22 | XMS_ITS | Encounter Summary ---
Author Organization [facility] Address [address] [place] [address] Care Team Providers Care Votator Machine Operator Name Role Phone Cass Turcios MD Primary Care Provider [phone] Encounter Details Date Type Department Care Team (Late st Contact Info) Description 05/31/2024 Lab Requisition [facility] - Main Lab [address] [facility] [place] [address] Laurence Florence MD [address] [place] [address] End stage renal disease (CMS/HCC V24, CMS/HCC [...] CBC auto differential (05/31/2024 6:09 AM EDT) [facility] Signature WBC 10.9(H) 4.8 - 10.8 [...] Resu lt [facility] [address] [place] [address], * (ABNORMAL) Basic metabolic panel (05/31/2024 6:09 AM EDT) Sodium 139 133 - 145 mmol/L LAB CHEMISTRY METHOD 05/31/2024 11:03 AM [facility] Potassium 4.6 3.5 - 5.5 mmol/L LAB CHEMISTRY METHOD 05/31/2024 11:03 AM [facility] Chloride 106 96 - 110 mmol/L LAB CHEMISTRY METHOD 05/31/2024 11:03 AM [facility] CO2 27 21 - 32 mmol/L LAB CHEMISTRY METHOD 05/31/2024 11:03 AM [facility] Anion Gap 6 3 - 11 LAB CHEMISTRY METHOD 05/31/2024 11:03 AM [facility] Glucose 24(LL) 70 - 100 mg/dL LAB CHEMISTRY METHOD 05/31/2024 11:03 AM [facility] BUN 52(H) 5 - 25 mg/dL LAB CHEMISTRY METHOD 05/31/2024 11:03 AM [facility] Creatinine 7.22(H) 0.70 - 1.30 mg/dL LAB CHEMISTRY METHOD 05/31/2024 11:03 AM EDT [facility] eGFR 8(L) >=60 mL/min/1. 73m2 LAB CHEMISTRY METHOD 05/31/2024 11:03 AM EDT [facility] Comment:Calculation based on the??Chronic Kidney Disease Epidemiology Collaboration (CKD-EPI) equation refit??without adjustment for race. BUN/Creatinine Ratio 7.2 LAB CHEMISTRY METHOD 05/31/2024 11:03 AM EDT [facility] Calcium 8.2(L) 8.5 - 10.5 mg/dL LAB CHEMISTRY METHOD 05/31/2024 11:03 AM EDT [facility] Blood Venous blood specimen / Unknown Venipuncture / Unknown 05/31/2024 6:09 AM EDT 05/31/2024 9:24 AM EDT us Laurence Florence MD LAB BLOOD ORDERABLES Final Resu lt [facility] [address] [place] [address], documented in this encounter Visit Diagnoses Diagnosis End stage renal disease (CMS/HCC V24, CMS/HCC V28) End stage renal disease Anemia, unspecified documented in this encounter Care Teams Votator Machine Operator Relationship Specialty Start Date End Date Cass Turicos MD [address] [place] [address] [address] [place] [address] PCP - General Geriatric Medicine 04/02/24 documented as of this encounter
--- OUTSIDE RECORDS SUMMARY | 2024-07-17 11:22 | XMS_ITS | Encounter Summary ---
Author Organization [facility] Address [address] [place] [address] Care Team Providers Care Cellular Biologist Name Role Phone Cass Turcios MD Primary Care Provider [phone] Encounter Details Date Type Department Care Team (Late st Contact Info) Description 06/06/2024 Lab Requisition [facility] - Main Lab [address] [facility] [place] [address] Laurence Florence MD [address] [place] [address] Cellulitis of right lower limb; End stage [...] mmol/L LAB CHEMISTRY METHOD 06/06/2024 8:59 AM [facility] Potassium 4.3 3.5 - 5.5 mmol/L LAB CHEMISTRY METHOD 06/06/2024 8:59 AM [facility] Chloride 106 96 - 110 mmol/L LAB CHEMISTRY METHOD 06/06/2024 8:59 AM [facility] CO2 27 21 - 32 mmol/L LAB CHEMISTRY METHOD 06/06/2024 8:59 AM [facility] Anion Gap 6 3 - 11 LAB CHEMISTRY METHOD 06/06/2024 8:59 AM [facility] Glucose 162(H) 70 - 100 mg/dL LAB CHEMISTRY METHOD 06/06/2024 8:59 AM [facility] BUN 28(H) 5 - 25 mg/dL LAB CHEMISTRY METHOD 06/06/2024 8:59 AM [facility] Creatinine 3.78(H) 0.70 - 1.30 mg/dL LAB CHEMISTRY METHOD 06/06/2024 8:59 AM [facility] eGFR 17(L) >=60 mL/min/1. 73m2 LAB CHEMISTRY METHOD 06/06/2024 8:59 AM [facility] Comment:Calculation based on the??Chronic Kidney Disease Epidemiology Collaboration (CKD-EPI) equation refit??without adjustment for race. BUN/Creatinine Ratio 7.4 LAB CHEMISTRY METHOD 06/06/2024 8:59 AM [facility] Calcium 9.1 8.5 - 10.5 mg/dL LAB CHEMISTRY METHOD 06/06/2024 8:59 AM [facility] Blood Venous blood specimen / Unknown Venipuncture / Unknown 06/06/2024 5:35 AM EDT 06/06/2024 8:10 AM EDT us Laurence Florence MD LAB BLOOD ORDERABLES Final Resu lt [facility] [address] [place] [address], [place] [phone] * (ABNORMAL) Complete blood count (06/06/2024 5:35 AM EDT) [facility] WBC 9.3 4.8 - 10.8 K/mcL LAB HEMETOLOGY METHOD 06/06/2024 8:35 AM EDT [facility] RBC 3.20(L) 4.50 - 5.50 M/mcL LAB HEMETOLOGY METHOD 06/06/2024 8:35 AM EDT [facility] Hemoglobin 7.6(L) 13.5 - 17.5 g/dL LAB HEMETOLOGY METHOD 06/06/2024 8:35 AM EDT [facility] Hematocrit 26.2(L) 42.0 - 54.0 % LAB HEMETOLOGY METHOD 06/06/2024 8:35 AM EDT [facility] MCV 80.9 79.0 - 98.0 FL LAB HEMETOLOGY METHOD 06/06/2024 8:35 AM EDT [facility] MCH 23.5(L) 27.0 - 32.0 pcg LAB HEMETOLOGY METHOD 06/06/2024 8:35 AM EDT [facility] MCHC 29.0(L) 32.0 - 37.0 g/dL LAB HEMETOLOGY METHOD 06/06/2024 8:35 AM EDT [facility] RDW 16.8(H) 11.0 - 15.0 % LAB HEMETOLOGY METHOD 06/06/2024 8:35 AM EDT [facility] Platelets 264 130 - 400 K/mcL LAB HEMETOLOGY METHOD 06/06/2024 8:35 AM EDT [facility] MPV 12.3(H) 7.0 - 11.0 FL LAB HEMETOLOGY METHOD 06/06/2024 8:35 AM EDT [facility] NRBC 0.0 <1.0 % LAB HEMETOLOGY METHOD 06/06/2024 8:35 AM EDT [facility] NRBC Absolute 0.00 <0.10 K/mcL LAB HEMETOLOGY METHOD 06/06/2024 8:35 AM EDT [facility] Blood Venous blood specimen / Unknown Venipuncture / Unknown 06/06/2024 5:35 AM EDT 06/06/2024 8:10 AM EDT us Laurence Florence MD LAB BLOOD ORDERABLES Final Resu lt [facility] [address] [place] [address], [place] [phone] documented in this encounter Visit Diagnoses Diagnosis Cellulitis of right lower limb End stage renal disease (CMS/HCC V24, CMS/HCC V28) End stage renal disease documented in this encounter Care Teams Cellular Biologist Relationship Specialty Start Date End Date Cass Turcios MD [address] [place] [address] [address] [place] [address] PCP - General Geriatric Medicine 04/02/24 documented as of this encounter
--- OUTSIDE RECORDS SUMMARY | 2024-07-17 11:22 | XMS_ITS | Clinical Summary ---
Author Organization [facility] Address [address] [place] [address] Phone Care Team Providers Care Director Auto Name Role Phone Cass Turcios MD Primary Care Provider [phone] Allergies No known active allergies Medications Ventolin [...] Department Care Team Description 06/06/2024 Lab Requisition [facility] [address] [place] [address] Laurence Florence MD Cellulitis of right lower limb; End stage renal disease ([facility] V24, [facility] V28) 05/31/2024 Lab Requisition [facility] [address] [facility] [place] [place] [address] Laurence Florence MD End stage renal disease ([facility] V24, [facility] V28); Anemia, unspecified 05/30/2024 Lab Requisition [facility] [address] [place] [address] Laurence Florence MD Chronic respiratory failure with hypoxia ([facility] V24, [facility] V28); Encounter for orthopedic aftercare following surgical amputation; Encounter for surgical aftercare following surgery on the circulatory system; Peripheral vascular disease, unspecified ([facility] V24) 05/30/2024 Lab Requisition [facility] [address] [place] [phone] Laurence Florence MD Chronic respiratory failure with hypoxia ([facility] V24, [facility] V28); Encounter for orthopedic aftercare following surgical amputation; Encounter for surgical aftercare following surgery on the circulatory system; Peripheral vascular disease, unspecified ([facility] V24) 05/28/2024 Lab Requisition [facility] [address] [place] [phone] Laurence Florence MD Anemia, unspecified; End stage renal disease ([facility] V24, [facility] V28); Unspecified asthma, uncomplicated 05/24/2024 Lab Requisition [facility] [address] [place] [phone] Laurence Florence MD Chronic combined systolic (congestive) and diastolic (congestive) heart failure ([facility] V24, [facility] V28); Type 2 diabetes mellitus without complications ([facility] V24, [facility] V28); End stage renal disease ([facility] V24, [facility] V28) 05/21/2024 Lab Requisition [facility] [address] [place] [phone] Laurence Florence MD Chronic combined systolic (congestive) and diastolic (congestive) heart failure ([facility] V24, [facility] V28); End stage renal disease ([facility] V24, [facility] V28) 05/20/2024 Lab Requisition [facility] [address] [place] [phone] Laurence Florence MD Elevated white blood cell count, unspecified 05/18/2024 Lab Requisition [facility] [address] [place] [phone] Elsy Christina PA Unspecified systolic (congestive) heart failure ([facility] V24, [facility] V28); Type 2 diabetes mellitus without complications ([facility] V24, [facility] V28); End stage renal disease ([facility] V24, [facility] V28) 05/17/2024 Lab Requisition [facility] [address] [facility] [place] [address] Laurence Florence MD Type 2 diabetes mellitus without complications ([facility] V24, [facility] V28); End stage renal disease ([facility] V24, [facility] V28) from Last 3 Months Surgical History Surgery Date Site/Laterality Comments TOE AMPUTATION IR DIALYSIS CATH INSERT VASCULAR ACCESS Medical History Medical History Date Comments ESRD (end stage renal disease) on dialysis ([facility] V24, [facility] V28) MWF Hypertension Hyperlipidemia Gouty arthritis Diabetes mellitus ([facility] V24, [facility] V28) GERD (gastroesophageal reflux disease) COPD (chronic obstructive pulmonary disease) ([facility] V24, [facility] V28) Social History Tobacco Use Types Packs/Day [...] EDT Type 2 diabetes mellitus without complications ([facility]/HCC) End stage renal disease (CMS/HCC) [...] LAB HEMETOLOGY METHOD 06/06/2024 8:35 AM EDT [facility] MCHC 29.0(L) 32.0 - 37.0 g/dL LAB HEMETOLOGY METHOD 06/06/2024 8:35 AM EDT [facility] RDW 16.8(H) 11.0 - 15.0 % LAB HEMETOLOGY METHOD 06/06/2024 8:35 AM EDT [facility] Platelets 264 130 - 400 K/mcL LAB HEMETOLOGY METHOD 06/06/2024 8:35 AM EDT [facility] MPV 12.3(H) 7.0 - 11.0 FL LAB HEMETOLOGY METHOD 06/06/2024 8:35 AM EDT [facility] NRBC 0.0 <1.0 % LAB HEMETOLOGY METHOD 06/06/2024 8:35 AM EDT [facility] NRBC Absolute 0.00 <0.10 K/mcL LAB HEMETOLOGY METHOD 06/06/2024 8:35 AM EDT [facility] Blood Venous blood specimen / Unknown Venipuncture / Unknown 06/06/2024 5:35 AM EDT 06/06/2024 8:10 AM EDT us Laurence Florence MD LAB BLOOD ORDERABLES Final Resu lt [facility] [address] [place] [address], * (ABNORMAL) Basic metabolic panel (06/06/2024 5:35 AM EDT) Only the most recent of6 resultswithin the time period is included. Sodium 139 133 - 145 mmol/L LAB CHEMISTRY METHOD 06/06/2024 8:59 AM EDT [facility] Potassium 4.3 3.5 - [...] Resu lt [facility] [address] [place] [address], [place] [phone] * (ABNORMAL) CBC auto differential (05/31/2024 6:09 [...] LAB HEMETOLOGY METHOD 05/31/2024 10:13 AM EDT [facility] Blood Venous blood specimen / Unknown Venipuncture / Unknown 05/31/2024 6:09 AM EDT 05/31/2024 9:24 AM EDT us Laurence Florence MD LAB BLOOD ORDERABLES Final Resu lt Performing Organization Address [facility]/ZIP Co de Phone Number [facility] [address] [place] [address], [place] [phone] * Culture blood (05/30/2024 7:41 AM EDT) Only the most recent of2 resultswithin the time period is included. Culture, Blood No growth at 5 days LAB MICROBIOLOGY METHOD 06/04/2024 9:01 AM EDT [facility] Blood Venipuncture / Unknown 05/30/2024 7:41 AM EDT 05/30/2024 8:14 AM EDT us Laurence Florence MD LAB MICROBIOLOGY - GENERAL ORDE RABLES Final Result Performing Organization Address [facility] de Phone Number [facility] [address] [place] [address], [place] [phone] * (ABNORMAL) Sedimentation rate (05/30/2024 7:36 AM EDT) Sed Rate >130(H) 0 - 20 mm/hr LAB HEMETOLOGY METHOD 05/30/2024 8:57 AM EDT [facility] Blood Venous blood specimen / Unknown Venipuncture / Unknown 05/30/2024 7:36 AM EDT 05/30/2024 8:11 AM EDT Narrative [facility] - 05/30/2024 8:57 AM EDT Rechecked. us Laurence Florence MD LAB BLOOD ORDERABLES Final Resu lt Performing Organization Address [facility]/ZIP Co de Phone Number [facility] [address] [place] [address], [place] [phone] * (ABNORMAL) C-reactive protein (05/30/2024 7:36 AM EDT) [facility] C-Reactive Protein 11.60(H) <=0.50 mg/dL LAB CHEMISTRY METHOD 05/30/2024 8:51 AM EDT [facility] Blood Venous blood specimen / Unknown Venipuncture / Unknown 05/30/2024 7:36 AM EDT 05/30/2024 8:11 AM EDT us Laurence Florence MD LAB BLOOD ORDERABLES Final Resu lt Performing Organization Address [facility] Co de Phone Number [facility] [address] [place] [address], [place] [phone] * Lactate (05/30/2024 7:36 AM EDT) [facility] Lactate 0.6 0.4 - 2.0 mmol/L LAB CHEMISTRY METHOD 05/30/2024 8:47 AM EDT [facility] Blood Venous blood specimen / Unknown Venipuncture / Unknown 05/30/2024 7:36 AM EDT 05/30/2024 8:11 AM EDT us Laurence Florence MD LAB BLOOD ORDERABLES Final Resu lt Performing Organization Address [facility]/ZIP Co de Phone Number [facility] [address] [place] [address], [place] [phone] * (ABNORMAL) Comprehensive metabolic panel (05/30/2024 7:36 AM EDT) Only the most recent of2 resultswithin the time period is included. [facility] Sodium 140 133 - 145 mmol/L LAB [...] LAB CHEMISTRY METHOD 05/30/2024 9:08 AM EDT [facility] Alkaline Phosphatase 141(H) 42 - 121 unit/L LAB CHEMISTRY METHOD 05/30/2024 9:08 AM EDT [facility] Total Protein 6.3 6.0 - 8.0 g/dL LAB CHEMISTRY METHOD 05/30/2024 9:08 AM EDT [facility] Albumin 2.5(L) 3.2 - 5.0 g/dL LAB CHEMISTRY METHOD 05/30/2024 9:08 AM EDT [facility] Total Bilirubin 0.5 0.0 - 1.4 mg/dL LAB CHEMISTRY METHOD 05/30/2024 9:08 AM EDT [facility] Blood Venous blood specimen / Unknown Venipuncture / Unknown 05/30/2024 7:36 AM EDT 05/30/2024 8:11 AM EDT us Laurence Florence MD LAB BLOOD ORDERABLES Final Resu lt Performing Organization Address City/[facility]/ZIP Co de Phone Number [facility] [address] [place] [address], [place] [phone] * (ABNORMAL) Magnesium (05/29/2024 5:09 AM EDT) Magnesium 1.8(L) 1.9 - 2.6 mg/dL LAB CHEMISTRY METHOD 05/29/2024 9:20 AM EDT [facility] Blood Venous blood specimen / Unknown Venipuncture / Unknown 05/29/2024 5:09 AM EDT 05/29/2024 8:42 AM EDT us Laurence Florence MD LAB BLOOD ORDERABLES Final Resu lt [facility] [address] [place] [address], [place] [phone] * (ABNORMAL) Renal function panel (05/29/2024 5:09 [...] LAB CHEMISTRY METHOD 05/29/2024 10:03 AM EDT [facility] Blood Venous blood specimen / Unknown Venipuncture / Unknown 05/29/2024 5:09 AM EDT 05/29/2024 8:42 AM EDT us Laurence Florence MD LAB BLOOD ORDERABLES Final Resu lt Performing Organization Address [facility] Co de Phone Number [facility] [address] [place] [address], [place] [phone] * (ABNORMAL) Hemoglobin A1c (05/18/2024 7:20 AM [...] ORDERABLES Final Re sult Performing Organization Address [facility] Co de Phone Number [facility] [address] [place] [address], [place] [phone] from Last 3 Months Insurance MEDICARE ADVANTAGE [facility] MEDICARE MEDICAID - [place] Advance Directives Documents on File Type Date Recorded Patient Baby Stroller Rental Clerk Expl anation Advance Directives and Living Will 03/29/2024 1:25 PM PROXY Advance Directives and Living Will 03/29/2024 9:18 AM Nestor Garry Marie [facility] Care Proxy Advance Directives and Living [...] Nestor Marie Health Care Agent Beau Marie [facility] re Agent Care Teams Director Auto Relationship Specialty Start Date End Date Cass Turcios MD [address] [place] [address] [address] [place] [address] PCP - General Geriatric Medicine 04/02/24
--- OUTSIDE RECORDS SUMMARY | 2024-07-17 11:22 | XMS_ITS | Encounter Summary ---
Author Organization [facility] Address [address] [place] [address] Phone Care Team Providers Care Site Foreman Name Role Phone Jade Lewis MD Primary Care Provider + [phone] Reason for Visit * Reason Comments Med Refill Encounter Details Date Type Department Care Team (Late st Contact Info) Description 07/23/2021 Refill [facility] [address] [place] [phone] Alejandro Santana MD [address] [place] [phone] Social History Tobacco Use Types Packs/Day Years [...] on filedocumented in this encounter Care Teams Site Foreman Relationship Specialty Start Date End Date Jade Lewis MD [address] [place] [address] PCP - General Internal Medicine 04/25/22 documented as of this encounter
--- OUTSIDE RECORDS SUMMARY | 2024-07-17 11:22 | XMS_ITS | Clinical Summary ---
Author Organization [employer] Address [address] [place] [address] 7 [place] [address] Care Team Providers Care Clinic Nurse Name Role Phone Unavailable Primary Care Provider [...] patient's age to complete this topic [place] [address] [place] [address] STANDARD
--- OUTSIDE RECORDS SUMMARY | 2024-07-17 11:23 | XMS_ITS | Encounter Summary ---
Author Organization [facility] Address [address] [place] [address] Care Team Providers Care Hand Roller Engraver Name Role Phone Cass Turcios MD Primary Care Provider Encounter Details Date Type Department Care Team (Latest Contact Info) Description 05/28/2024 Lab Requisition [facility] Lab [address] [facility] [place] [address] Laurence Florence MD [address] [place] [address] Anemia, unspecified; End stage renal disease (CMS/HCC [...] Magnesium (05/29/2024 5:09 AM EDT) Pathologist [facility] Magnesium 1.8(L) 1.9 - 2.6 mg/dL LAB CHEMISTRY METHOD 05/29/2024 9:[address] [facility] Blood Venous blood specimen / Unknown Venipuncture / Unknown 05/29/2024 5:09 AM EDT 05/29/2024 8:42 AM EDT us Laurence Florence MD LAB BLOOD ORDERABLES Final Resu lt [facility] [address] [place] [address], * (ABNORMAL) Complete blood count (05/29/2024 5:09 AM EDT) [facility] WBC 10.8 4.8 - 10.8 [...] 9:[address] [facility] MCV 81.8 79.0 - 98.0 FL LAB HEMETOLOGY METHOD [facility] MCH 23.6(L) 27.0 - 32.0 pcg LAB HEMETOLOGY METHOD 05/29/2024 9:01 AM [facility] MCHC 28.9(L) 32.0 - 37.0 g/dL LAB HEMETOLOGY METHOD 05/29/2024 9:01 AM [facility] RDW 18.2(H) 11.0 - 15.0 % LAB HEMETOLOGY METHOD 05/29/2024 [facility] Platelets 263 130 - 400 K/mcL LAB HEMETOLOGY METHOD 05/29/2024 9:01 AM [facility] MPV 11.2(H) 7.0 - 11.0 FL LAB HEMETOLOGY METHOD 05/29/2024 [facility] NRBC 0.0 <1.0 % LAB HEMETOLOGY METHOD 05/29/2024 9:01 AM [facility] NRBC Absolute 0.00 <0.10 K/mcL LAB HEMETOLOGY METHOD 05/29/2024 9:01 AM [facility] Blood Venous blood specimen / Unknown Venipuncture / Unknown 05/29/2024 5:09 AM EDT 05/29/2024 8:42 AM EDT us Laurence Florence MD LAB BLOOD ORDERABLES Final Resu lt [facility] [address] [place] [address], * (ABNORMAL) Renal function panel (05/29/2024 5:09 AM EDT) Sodium 135 133 - 145 mmol/L LAB CHEMISTRY METHOD 05/29/2024 10:[address] [facility] Potassium 4.7 3.5 - 5.5 mmol/L LAB CHEMISTRY METHOD 05/29/2024 10:03 AM [facility] Chloride 99 96 - 110 mmol/L LAB CHEMISTRY METHOD 05/29/2024 10:03 AM [facility] CO2 27 21 - 32 mmol/L LAB CHEMISTRY METHOD 05/29/2024 10:03 AM [facility] Anion Gap 9 3 - 11 LAB CHEMISTRY METHOD 05/29/2024 10:03 AM [facility] Glucose 22(LL) 70 - 100 mg/dL LAB CHEMISTRY METHOD 05/29/2024 10:03 AM [facility] BUN 60(H) 5 - 25 mg/dL LAB CHEMISTRY METHOD 05/29/2024 10:03 AM [facility] Creatinine 7.71(H) 0.70 - 1.30 mg/dL LAB CHEMISTRY METHOD 05/29/2024 10:03 AM [facility] eGFR 7(L) >=60 mL/min/1. 73m2 LAB CHEMISTRY METHOD 05/29/2024 10:03 AM [facility] Comment:Calculation based on the??Chronic Kidney Disease Epidemiology Collaboration (CKD-EPI) equation refit??without adjustment for race. BUN/Creatinine Ratio 7.8 LAB CHEMISTRY METHOD 05/29/2024 10:03 AM [facility] Albumin 2.4(L) 3.2 - 5.0 g/dL LAB CHEMISTRY METHOD 05/29/2024 10:03 AM [facility] Calcium 8.7 8.5 - 10.5 mg/dL LAB CHEMISTRY METHOD 05/29/2024 10:03 AM [facility] Phosphorus 4.7(H) 2.5 - 4.5 mg/dL LAB CHEMISTRY METHOD 05/29/2024 10:03 AM [facility] Blood Venous blood specimen / Unknown Venipuncture / Unknown 05/29/2024 5:09 AM EDT 05/29/2024 8:42 AM EDT us Laurence Florence MD LAB BLOOD ORDERABLES Final Resu lt [facility] ([facility] [address] [place] [address], documented in this encounter Visit Diagnoses Diagnosis Anemia, unspecified End stage renal disease (CMS/HCC V24, CMS/HCC V28) End stage renal disease Unspecified asthma, uncomplicated documented in this encounter Care Teams Hand Roller Engraver Relationship Specialty Start Date End Date Cass Turcios MD [address] [facility] [address] [place] [address] PCP - General Geriatric Medicine 04/02/24 documented as of this encounter
--- OUTSIDE RECORDS SUMMARY | 2024-07-17 11:23 | XMS_ITS | Encounter Summary ---
Author Organization [facility], Address [address] [place] [address] Phone Care Team Providers Care Communications Station Manager Name Role Phone Jade Lewis MD Primary Care Provider + [phone] Reason for Visit * Reason Comments Med Refill Encounter Details Date Type Department Care Team ([facility] st Contact Info) Description 10/18/2023 Refill [facility] [address] [place] [phone] Malcolm Taylor MD [address] [place] [address] [place] [phone] Social History Tobacco Use Types Packs/Day Years [...] 10/19/2023 Unless otherwise specified, test(s) performed at: [facility], [address] [place] [address] PERINATAL TECHNICIAN: Homero Garcia M.D. For any questions, please call customer service at FREQUENCY:OTHER Resulting Agency Comment Specimen source: Blood us Car Mcdonald MD LAB BLOOD ORDERABLES Final Re sult [facility] See order comments or contact performing lab Unknown, [place] documented in this encounter Visit Diagnoses Not on filedocumented in this encounter Care Teams Communications Station Manager Relationship Specialty Start Date End Date Jade Lewis MD [address] [place] [address] PCP - General Internal Medicine 04/25/22 documented as of this encounter
--- OUTSIDE RECORDS SUMMARY | 2024-07-17 11:23 | XMS_ITS | Encounter Summary ---
Author Organization [facility] Address [address] [place] [address] Care Team Providers Care Double End Sewer Name Role Phone Cass Turcios MD Primary Care Provider [phone] Encounter Details Date Type Department Care Team (Late st Contact Info) Description 04/02/2024 Lab Requisition [facility] Lab [address] [facility] [place] [address] Cass Turcios MD [address] [place] [address] End stage renal disease (CMS/HCC V24, CMS/HCC [...] mmol/L LAB CHEMISTRY METHOD 04/02/2024 10:35 AM [facility] Potassium 5.6(H) 3.5 - 5.5 mmol/L LAB CHEMISTRY METHOD 04/02/2024 10:35 AM [facility] Chloride 95(L) 96 - 110 mmol/L LAB CHEMISTRY METHOD 04/02/2024 10:35 AM [facility] CO2 32 21 - 32 mmol/L LAB CHEMISTRY METHOD 04/02/2024 10:35 AM [facility] Anion Gap 8 3 - 11 LAB CHEMISTRY METHOD 04/02/2024 10:35 AM [facility] Glucose 32(LL) 70 - 100 mg/dL LAB CHEMISTRY METHOD 04/02/2024 10:35 AM [facility] BUN 50(H) 5 - 25 mg/dL LAB CHEMISTRY METHOD 04/02/2024 10:35 AM [facility] Creatinine 7.72(H) 0.70 - 1.30 mg/dL LAB CHEMISTRY METHOD 04/02/2024 10:35 AM [facility] eGFR 7(L) >=60 mL/min/1. 73m2 LAB CHEMISTRY METHOD 04/02/2024 10:35 AM [facility] Comment:Calculation based on the??Chronic Kidney Disease Epidemiology Collaboration (CKD-EPI) equation refit??without adjustment for race. BUN/Creatinine Ratio 6.5 LAB CHEMISTRY METHOD 04/02/2024 10:35 AM [facility] Calcium 8.3(L) 8.5 - 10.5 mg/dL LAB CHEMISTRY METHOD 04/02/2024 10:35 AM [facility] Blood Venous blood specimen / Unknown Venipuncture / Unknown 04/02/2024 5:24 AM EST 04/02/2024 8:48 AM EST us Cass Turcios MD LAB BLOOD ORDERABLES Final Resul t [facility] [address] [place] [address], * (ABNORMAL) Complete blood count (04/02/2024 5:24 AM EST) WBC 26.2(H) 4.8 - 10.8 K/mcL LAB HEMETOLOGY METHOD 04/02/2024 9:47 AM [facility] RBC 4.10(L) 4.50 - 5.50 M/mcL LAB HEMETOLOGY METHOD 04/02/2024 9:47 AM [facility] Hemoglobin 9.4(L) 13.5 - 17.5 g/dL LAB HEMETOLOGY METHOD 04/02/2024 9:47 AM [facility] Hematocrit 31.2(L) 42.0 - 54.0 % LAB HEMETOLOGY METHOD 04/02/2024 9:47 AM [facility] MCV 76.1(L) 79.0 - 98.0 FL LAB HEMETOLOGY METHOD 04/02/2024 9:47 AM [facility] MCH 22.9(L) 27.0 - 32.0 pcg LAB HEMETOLOGY METHOD 04/02/2024 9:47 AM [facility] MCHC 30.1(L) 32.0 - 37.0 g/dL LAB HEMETOLOGY METHOD 04/02/2024 9:47 AM [facility] RDW 17.1(H) 11.0 - 15.0 % LAB HEMETOLOGY METHOD 04/02/2024 9:47 AM [facility] Platelets 349 130 - 400 K/mcL LAB HEMETOLOGY METHOD 04/02/2024 9:47 AM [facility] MPV 11.4(H) 7.0 - 11.0 FL LAB HEMETOLOGY METHOD 04/02/2024 9:47 AM EST [facility] NRBC 0.0 <1.0 % LAB HEMETOLOGY METHOD 04/02/2024 9:47 AM EST [facility] NRBC Absolute 0.00 <0.10 K/mcL LAB HEMETOLOGY METHOD 04/02/2024 9:47 AM EST [facility] Blood Venous blood specimen / Unknown Venipuncture / Unknown 04/02/2024 5:24 AM EST 04/02/2024 8:48 AM EST Cass Turcios MD LAB BLOOD ORDERABLES Final Resul t [facility] [address] [place] [address], documented in this encounter Visit Diagnoses Diagnosis End stage renal disease (CMS/HCC V24, CMS/HCC V28) End stage renal disease documented in this encounter Care Teams Double End Sewer Relationship Specialty Start Date End Date Cass Turcios MD [address] [place] [address] [address] [place] [address] PCP - General Geriatric Medicine 04/02/24 documented as of this encounter
--- OUTSIDE RECORDS SUMMARY | 2024-07-17 11:23 | XMS_ITS | Encounter Summary ---
Author Organization [facility] Address [address] [place] [address] Care Team Providers Care Urology Physician Assistant Name Role Phone Cass Turcios MD Primary Care Provider [phone] Encounter Details Date Type Department Care Team (Late st Contact Info) Description 05/18/2024 Lab Requisition [facility] - Main Lab [address] [facility] [place] [address] Elsy Christina PA [address] [address] Unspecified systolic (congestive) heart failure ([facility] V24, CMS/HCC V28); Type 2 diabetes mellitus without complications (CMS/HCC V24, CMS/HCC V28); End stage renal disease (CMS/HCC V24, CMS/[facility] V28) Social History Tobacco Use Types [...] for your loved ones. For example, child therapist or elderly care for an older [...] AM EDT Unspecified systolic (congestive) heart failure ([facility]/HCC) Type 2 diabetes mellitus without complications [...] K/mcL LAB HEMETOLOGY METHOD 05/18/2024 10:27 AM [facility] RBC 3.60(L) 4.50 - 5.50 M/mcL LAB HEMETOLOGY METHOD 05/18/2024 10:27 AM [facility] Hemoglobin 8.8(L) 13.5 - 17.5 g/dL LAB HEMETOLOGY METHOD 05/18/2024 10:27 AM [facility] Hematocrit 29.6(L) 42.0 - 54.0 % LAB HEMETOLOGY METHOD 05/18/2024 10:27 AM [facility] MCV 83.1 79.0 - 98.0 FL LAB HEMETOLOGY METHOD 05/18/2024 10:27 AM [facility] MCH 24.7(L) 27.0 - 32.0 pcg LAB HEMETOLOGY METHOD 05/18/2024 10:27 AM [facility] MCHC 29.7(L) 32.0 - 37.0 g/dL LAB HEMETOLOGY METHOD 05/18/2024 10:27 AM [facility] RDW 18.3(H) 11.0 - 15.0 % LAB HEMETOLOGY METHOD 05/18/2024 10:27 AM [facility] Platelets 433(H) 130 - 400 K/mcL LAB HEMETOLOGY METHOD 05/18/2024 10:27 AM [facility] MPV 10.5 7.0 - 11.0 FL LAB HEMETOLOGY METHOD 05/18/2024 10:27 AM [facility] NRBC 0.0 <1.0 % LAB HEMETOLOGY METHOD 05/18/2024 10:27 AM [facility] NRBC Absolute 0.00 <0.10 K/mcL LAB HEMETOLOGY METHOD 05/18/2024 10:27 AM [facility] Neutrophils Relative 75.0 % LAB HEMETOLOGY METHOD 05/18/2024 10:27 AM [facility] Lymphocytes Relative 15.7 % LAB HEMETOLOGY METHOD 05/18/2024 10:27 AM [facility] Monocytes Relative 5.9 % LAB HEMETOLOGY METHOD 05/18/2024 10:27 AM [facility] Eosinophils Relative 2.5 % LAB HEMETOLOGY METHOD 05/18/2024 10:27 AM [facility] Basophils Relative 0.3 % LAB HEMETOLOGY METHOD 05/18/2024 10:27 AM [facility] Immature Granulocytes Relative 0.6 % LAB HEMETOLOGY METHOD 05/18/2024 10:27 AM [facility] Neutrophils Absolute 11.02(H) 1.50 - 7.00 K/mcL LAB HEMETOLOGY METHOD 05/18/2024 10:27 AM EDT [facility] Lymphocytes Absolute 2.30 1.00 - 5.00 K/[facility] LAB HEMETOLOGY METHOD 05/18/2024 10:27 AM EDT [facility] Monocytes Absolute 0.87 0.20 - 1.00 K/[facility] LAB HEMETOLOGY METHOD 05/18/2024 10:27 AM EDT [facility] Eosinophils Absolute 0.37 0.00 - 0.50 K/[facility] LAB HEMETOLOGY METHOD 05/18/2024 10:27 AM EDT [facility] Basophils Absolute 0.04 0.00 - 0.20 K/[facility] LAB HEMETOLOGY METHOD 05/18/2024 10:27 AM EDT [facility] Immature Granulocytes Absolute 0.09(H) 0.00 - 0.03 K/[facility] LAB HEMETOLOGY METHOD 05/18/2024 10:27 AM EDT [facility] Blood Venous blood specimen / Unknown Venipuncture / Unknown 05/18/2024 7:20 AM EDT 05/18/2024 9:58 AM EDT us Elsy MONTERO LAB BLOOD ORDERABLES Final Re sult [facility] [address] [place] [address], * (ABNORMAL) Hemoglobin A1c (05/18/2024 7:20 AM [...] Re sult [facility] [address] [place] [address], [place] [phone] * (ABNORMAL) Basic metabolic panel (05/18/2024 7:20 AM EDT) Sodium 136 133 - 145 mmol/L LAB CHEMISTRY METHOD 05/18/2024 10:41 AM [facility] Potassium 4.8 3.5 - 5.5 mmol/L LAB CHEMISTRY METHOD 05/18/2024 10:41 AM [facility] Chloride 100 96 - 110 mmol/L LAB CHEMISTRY METHOD 05/18/2024 10:41 AM [facility] CO2 28 21 - 32 mmol/L LAB CHEMISTRY METHOD 05/18/2024 10:41 AM [facility] Anion Gap 8 3 - 11 LAB CHEMISTRY METHOD 05/18/2024 10:41 AM [facility] Glucose 77 70 - 100 mg/dL LAB CHEMISTRY METHOD 05/18/2024 10:41 AM [facility] BUN 43(H) 5 - 25 mg/dL LAB CHEMISTRY METHOD 05/18/2024 10:41 AM [facility] Creatinine 6.49(H) 0.70 - 1.30 mg/dL LAB CHEMISTRY METHOD 05/18/2024 10:41 AM [facility] eGFR 9(L) >=60 mL/min/1. 73m2 LAB CHEMISTRY METHOD 05/18/2024 10:41 AM [facility] Comment:Calculation based on the??Chronic Kidney Disease Epidemiology Collaboration (CKD-EPI) equation refit??without adjustment for race. BUN/Creatinine Ratio 6.6 LAB CHEMISTRY METHOD 05/18/2024 10:41 AM [facility] Calcium 9.0 8.5 - 10.5 mg/dL LAB CHEMISTRY METHOD 05/18/2024 10:41 AM EDT [facility] Blood Venous blood specimen / Unknown Venipuncture / Unknown 05/18/2024 7:20 AM EDT 05/18/2024 9:58 AM EDT us Elsy MONTERO LAB BLOOD ORDERABLES Final Re sult [facility] [address] [place] [address], documented in this encounter Visit Diagnoses Diagnosis Unspecified systolic (congestive) heart failure ([facility] V24, [facility] V28[facility] Type 2 diabetes mellitus without complications ([facility] V24, [facility] V28) End stage renal disease ([facility] V24, [facility] V28) End stage renal disease documented in this encounter Care Teams Urology Physician Assistant Relationship Specialty Start Date End Date Cass Turcios MD [address] [place] [address] [address] [place] [address] PCP - General Geriatric Medicine 04/02/24 documented as of this encounter
--- OUTSIDE RECORDS SUMMARY | 2024-07-17 11:23 | XMS_ITS | Encounter Summary ---
Author Organization [facility] Address [address] [place] [address] Care Team Providers Care Senior Solutions Engineer Name Role Phone Cass Turcios MD Primary Care Provider [phone] Encounter Details Date Type Department Care Team (Latest Contact Info) Description 05/17/2024 Lab Requisition [facility] - Main Lab [address] [facility] [place] [address] Laurence Florence MD [address] [place] [id number] Type 2 diabetes mellitus without complications (CMS/HCC [...] your loved ones. For example, early childhood or elderly care for an older adult? [...] EDT Type 2 diabetes mellitus without complications ([facility]/HCC) End stage renal disease ([facility]) HEMOGLOBIN A1C Routine 05/17/2024 5:37 AM EDT Type 2 diabetes mellitus without complications (CMS/HCC) End stage renal disease ([facility]/HCC) BASIC METABOLIC PANEL Routine 05/17/2024 5:37 AM EDT Type 2 diabetes mellitus without complications ([facility]/HCC) End stage renal disease ([facility]/HCC) documented in this encounter Results [...] LAB CHEMISTRY METHOD 05/17/2024 11:32 AM EDT [facility] Calcium 9.0 8.5 - 10.5 mg/dL LAB CHEMISTRY METHOD 05/17/2024 11:32 AM EDT [facility] Blood Venous blood specimen / Unknown Venipuncture / Unknown 05/17/2024 5:37 AM EDT 05/17/2024 9:43 AM EDT us Laurence Florence MD LAB BLOOD ORDERABLES Final Resu lt Performing Organization Address [facility] de Phone Number [facility] [address] [place] [address], [place] [phone] * (ABNORMAL) Hemoglobin A1c (05/17/2024 5:37 AM EDT) Hemoglobin A1C 7.1(H) <6.5 % LAB CHEMISTRY METHOD 05/17/2024 1:30 PM EDT [facility] Mean Bld Glu Estim. 157 mg/dL LAB CHEMISTRY METHOD 05/17/2024 1:30 PM EDT [facility] Blood Venous blood specimen / Unknown Venipuncture / Unknown 05/17/2024 5:37 AM EDT 05/17/2024 9:43 AM EDT us Laurence Florence MD LAB BLOOD ORDERABLES Final Resu lt Performing Organization Address City/[facility]/ZIP Co de Phone Number [facility] [address] [place] [address], [place] [phone] * (ABNORMAL) Complete blood count (05/17/2024 5:37 AM EDT) WBC 16.6(H) 4.8 - 10.8 K/[facility] LAB HEMETOLOGY METHOD 05/17/2024 10:40 AM EDT [facility] RBC 3.70(L) 4.50 - 5.50 M/[facility] LAB HEMETOLOGY METHOD 05/17/2024 10:40 AM [...] Resu lt [facility] ([facility] H[facility] LAB [address] [place] [address], documented in this encounter Visit Diagnoses Diagnosis Type 2 diabetes mellitus without complications ([facility] V24, [facility] V28) End stage renal disease ([facility] V24, [facility] V28) End stage renal disease documented in this encounter Care Teams Senior Solutions Engineer Relationship Specialty Start Date End Date Cass Turcios MD [address] [facility] [address] [place] [address] PCP - General Geriatric Medicine 04/02/24 documented as of this encounter
--- OUTSIDE RECORDS SUMMARY | 2024-07-17 11:23 | XMS_ITS | Encounter Summary ---
Author Organization [facility], Address [address] [place] [address] Phone Care Team Providers Care Communications Agent Name Role Phone Jade Lewis MD Primary Care Provider [phone] Encounter Details Date Type Department Care Team (Late st Contact Info) Description 10/28/2019 Orders Only [facility] [address] [phone] [place] [address] [place] [phone] Social History Tobacco Use Types Packs/Day Years [...] filedocumented in this encounter Care Teams Communications Agent Relationship Specialty Start Date End Date Jade Lewis MD [address] [place] [address] PCP - General Internal Medicine 04/25/22 documented as of this encounter
--- OUTSIDE RECORDS SUMMARY | 2024-07-17 11:23 | XMS_ITS | Encounter Summary ---
Author Organization [facility], Address [address] [place] [address] Phone Care Team Providers Care Electronic Field Service Engineer Name Role Phone Jade Lewis MD Primary Care Provider [phone] Reason for Visit * Reason Comments Med Refill Encounter Details Date Type Department Care Team (Late st Contact Info) Description 04/27/2019 Refill [facility] [address] [place] [address] Mercedes Law MD Social History [...] on filedocumented in this encounter Care Teams Electronic Field Service Engineer Relationship Specialty Start Date End Date Jade Lewis MD [address] [place], [place] [phone] PCP - General Internal Medicine 04/25/22 documented as of this encounter
--- OUTSIDE RECORDS SUMMARY | 2024-07-17 11:23 | XMS_ITS | Encounter Summary ---
Author Organization [facility] Address [address] [place] [address] Care Team Providers Care Manager Planning Name Role Phone Cass Turcios MD Primary Care Provider [phone] Encounter Details Date Type Department Care Team (Latest Contact Info) Description 05/24/2024 Lab Requisition [facility] - Main Lab [address] [facility] [place] [address] Laurence Florence MD [address] [place] [id number] Chronic combined systolic (congestive) and diastolic (congestive) [...] without complications End stage renal disease ([facility]/HCC) BASIC METABOLIC PANEL Routine 05/24/2024 5:56 AM EDT Chronic combined systolic (congestive) and diastolic (congestive) heart failure Type 2 diabetes mellitus without complications End stage renal disease ([facility]/HCC) documented in this encounter Results * (ABNORMAL) CBC auto differential (05/24/2024 5:56 AM EDT) [facility] WBC 9.3 4.8 - 10.8 K/mcL LAB HEMETOLOGY METHOD 05/24/2024 9:31 AM [facility] RBC 3.40(L) 4.50 - 5.50 M/mcL LAB HEMETOLOGY METHOD 05/24/2024 9:31 AM [facility] Hemoglobin 8.5(L) 13.5 - 17.5 g/dL LAB HEMETOLOGY METHOD 05/24/2024 9:31 AM [facility] Hematocrit 28.2(L) 42.0 - 54.0 % LAB HEMETOLOGY METHOD 05/24/2024 9:31 AM [facility] MCV 82.0 79.0 - 98.0 FL LAB HEMETOLOGY METHOD 05/24/2024 9:31 AM [facility] MCH 24.7(L) 27.0 - 32.0 pcg LAB HEMETOLOGY METHOD 05/24/2024 9:31 AM [facility] MCHC 30.1(L) 32.0 - 37.0 g/dL LAB HEMETOLOGY METHOD 05/24/2024 9:31 AM [facility] RDW 17.8(H) 11.0 - 15.0 % LAB HEMETOLOGY METHOD 05/24/2024 9:31 AM [facility] Platelets 335 130 - 400 K/mcL LAB HEMETOLOGY METHOD 05/24/2024 9:31 AM [facility] MPV 10.5 7.0 - 11.0 FL LAB HEMETOLOGY METHOD 05/24/2024 9:31 AM [facility] NRBC 0.0 <1.0 % LAB HEMETOLOGY METHOD 05/24/2024 9:31 AM [facility] NRBC Absolute 0.00 <0.10 K/mcL LAB HEMETOLOGY METHOD 05/24/2024 9:31 AM [facility] Neutrophils Relative 67.5 % LAB HEMETOLOGY METHOD 05/24/2024 9:31 AM [facility] Lymphocytes Relative 16.4 % LAB HEMETOLOGY METHOD 05/24/2024 9:31 AM [facility] Monocytes Relative 10.6 % LAB HEMETOLOGY METHOD 05/24/2024 9:31 AM [facility] Eosinophils Relative 4.5 % LAB HEMETOLOGY METHOD 05/24/2024 9:31 AM [facility] Basophils Relative 0.4 % LAB HEMETOLOGY METHOD 05/24/2024 9:31 AM [facility] Immature Granulocytes Relative 0.6 % LAB HEMETOLOGY METHOD 05/24/2024 9:31 AM [facility] Neutrophils Absolute 6.24 1.50 - 7.00 K/mcL LAB HEMETOLOGY METHOD 05/24/2024 9:31 AM [facility] Lymphocytes Absolute 1.52 1.00 - 5.00 K/mcL LAB HEMETOLOGY METHOD 05/24/2024 9:31 AM [facility] Monocytes Absolute 0.98 0.20 - 1.00 K/mcL LAB HEMETOLOGY METHOD 05/24/2024 9:31 AM EDT [facility] Eosinophils Absolute 0.42 0.00 - 0.50 K/mcL LAB HEMETOLOGY METHOD 05/24/2024 9:31 AM EDT [facility] Basophils Absolute 0.04 0.00 - 0.20 K/mcL LAB HEMETOLOGY METHOD 05/24/2024 9:31 AM EDT [facility] Immature Granulocytes Absolute 0.06(H) 0.00 - 0.03 K/mcL LAB HEMETOLOGY METHOD 05/24/2024 9:31 AM EDT [facility] Blood Venous blood specimen / Unknown Venipuncture / Unknown 05/24/2024 5:56 AM EDT 05/24/2024 8:41 AM EDT us Laurence Florence MD LAB BLOOD ORDERABLES Final Resu lt [facility] [address] [place] [address], [place] [phone] * (ABNORMAL) Basic metabolic panel (05/24/2024 5:56 AM EDT) Sodium 134 133 - 145 mmol/L LAB CHEMISTRY METHOD 05/24/2024 9:53 AM [facility] Potassium 4.8 3.5 - 5.5 mmol/L LAB CHEMISTRY METHOD 05/24/2024 9:53 AM [facility] Chloride 100 96 - 110 mmol/L LAB CHEMISTRY METHOD 05/24/2024 9:53 AM [facility] CO2 26 21 - 32 mmol/L LAB CHEMISTRY METHOD 05/24/2024 9:53 AM [facility] Anion Gap 8 3 - 11 LAB CHEMISTRY METHOD 05/24/2024 9:53 AM [facility] Glucose 131(H) 70 - 100 mg/dL LAB CHEMISTRY METHOD 05/24/2024 9:53 AM EDT [facility] BUN 67(H) 5 - 25 mg/dL LAB CHEMISTRY METHOD 05/24/2024 9:53 AM EDT [facility] Creatinine 7.92(H) 0.70 - 1.30 mg/dL LAB CHEMISTRY METHOD 05/24/2024 9:53 AM EDT [facility] eGFR 7(L) >=60 mL/min/1. 73m2 LAB CHEMISTRY METHOD 05/24/2024 9:53 AM EDT [facility] Comment:Calculation based on the??Chronic Kidney Disease Epidemiology Collaboration (CKD-EPI) equation refit??without adjustment for race. BUN/Creatinine Ratio 8.5 LAB CHEMISTRY METHOD 05/24/2024 9:53 AM EDT [facility] Calcium 8.6 8.5 - 10.5 mg/dL LAB CHEMISTRY METHOD 05/24/2024 9:53 AM EDT [facility] Blood Venous blood specimen / Unknown Venipuncture / Unknown 05/24/2024 5:56 AM EDT 05/24/2024 8:41 AM EDT us Laurence Florence MD LAB BLOOD ORDERABLES Final Resu lt [facility] [address] [place] [address], documented in this encounter Visit Diagnoses Diagnosis Chronic combined systolic (congestive) and diastolic (congestive) heart failure (CMS/HCC V24, CMS/HCC V28) Type 2 diabetes mellitus without complications (CMS/HCC V24, CMS/HCC V28) End stage renal disease (CMS/HCC V24, CMS/HCC V28) End stage renal disease documented in this encounter Care Teams Manager Planning Relationship Specialty Start Date End Date Cass Turcios MD [address] [place], [place] [id number] [place] [address] PCP - General Geriatric Medicine 04/02/24 documented as of this encounter
--- OUTSIDE RECORDS SUMMARY | 2024-07-17 11:23 | XMS_ITS | Encounter Summary ---
Author Organization [facility] Address [address] [place] [address] Care Team Providers Care Marble Cutter Operator Name Role Phone Cass Turcios MD Primary Care Provider [phone] Encounter Details Date Type Department Care Team (Late st Contact Info) Description 03/25/2024 Lab Requisition [facility] - Main Lab [address] [facility] [place] [address] Cass Turcios MD [address] [place] [address] Anemia, unspecified; Chronic diastolic (congestive) heart failure [...] for your loved ones. For example, child advocate or elderly care for an older adult? [...] mmol/L LAB CHEMISTRY METHOD 03/25/2024 2:[address] [facility] Potassium 7.3(HH) 3.5 - 5.5 mmol/L LAB CHEMISTRY METHOD 03/25/2024 2:[address] [facility] Chloride 101 96 - 110 mmol/L LAB CHEMISTRY METHOD 03/25/2024 2:[address] [facility] CO2 15(L) 21 - 32 mmol/L LAB CHEMISTRY METHOD 03/25/2024 2:[address] [facility] Anion Gap 17(H) 3 - 11 LAB CHEMISTRY METHOD 03/25/2024 2:[address] [facility] Glucose 62(L) 70 - 100 mg/dL LAB CHEMISTRY METHOD 03/25/2024 2:[address] [facility] BUN 112(H) 5 - 25 mg/dL LAB CHEMISTRY METHOD 03/25/2024 2:[address] [facility] Creatinine 12.80(HH) 0.70 - 1.30 mg/dL LAB CHEMISTRY METHOD 03/25/2024 2:[address] [facility] eGFR 4(L) >=60 mL/min/1 .73m2 LAB CHEMISTRY METHOD 03/25/2024 2:[address] [facility] Comment:Calculation based on the??Chronic Kidney Disease Epidemiology Collaboration (CKD-EPI) equation refit??without adjustment for race. BUN/Creatinine Ratio 8.8 LAB CHEMISTRY METHOD 03/25/2024 2:[address] [facility] Calcium 8.8 8.5 - 10.5 mg/dL LAB CHEMISTRY METHOD 03/25/2024 2:44 PM EST [facility] AST (SGOT) 21 10 - 42 unit/L LAB CHEMISTRY METHOD 03/25/2024 2:[address] [facility] ALT (SGPT) 9(L) 10 - 60 unit/L LAB CHEMISTRY METHOD 03/25/2024 2:[address] [facility] Alkaline Phosphatase 172(H) 42 - 121 unit/L LAB CHEMISTRY METHOD 03/25/2024 2:[address] [facility] Total Protein 6.9 6.0 - 8.0 g/dL LAB CHEMISTRY METHOD 03/25/2024 2:[address] [facility] Albumin 2.7(L) 3.2 - 5.0 g/dL LAB CHEMISTRY METHOD 03/25/2024 2:[address] [facility] Total Bilirubin 0.4 0.0 - 1.4 mg/dL LAB CHEMISTRY METHOD 03/25/2024 2:[address] [facility] Blood Venous blood specimen / Unknown Venipuncture / Unknown 03/25/2024 5:09 AM EST 03/25/2024 11:52 AM EST us Cass Turcios MD LAB BLOOD ORDERABLES Final Resul t [facility] [address] [place] [address], * (ABNORMAL) Complete blood count (03/25/2024 5:09 AM EST) WBC 14.1(H) 4.8 - 10.8 K/mcL LAB HEMETOLOGY METHOD 03/25/2024 2:27 PM EST [facility] RBC 4.60 4.50 - 5.50 M/mcL LAB HEMETOLOGY METHOD 03/25/2024 2:[address] [facility] Hemoglobin 10.5(L) 13.5 - 17.5 g/dL LAB HEMETOLOGY METHOD 03/25/2024 2:[address] [facility] Hematocrit 35.9(L) 42.0 - 54.0 % LAB HEMETOLOGY METHOD 03/25/2024 2:[address] [facility] MCV 77.7(L) 79.0 - 98.0 FL LAB HEMETOLOGY METHOD 03/25/2024 2:[address] [facility] MCH 22.7(L) 27.0 - 32.0 pcg LAB HEMETOLOGY METHOD 03/25/2024 2:[address] [facility] MCHC 29.2(L) 32.0 - 37.0 g/dL LAB HEMETOLOGY METHOD 03/25/2024 2:[address] [facility] RDW 17.5(H) 11.0 - 15.0 % LAB HEMETOLOGY METHOD 03/25/2024 2:[address] [facility] Platelets 254 130 - 400 K/mcL LAB HEMETOLOGY METHOD 03/25/2024 2:[address] [facility] MPV LAB HEMETOLOGY METHOD 03/25/2024 2:[address] [facility] Comment:Not Measured NRBC 0.0 <1.0 % LAB HEMETOLOGY METHOD 03/25/2024 2:[address] [facility] NRBC Absolute 0.00 <0.10 K/mcL LAB HEMETOLOGY METHOD 03/25/2024 2:[address] [facility] Blood Venous blood specimen / Unknown Venipuncture / Unknown 03/25/2024 5:09 AM EST 03/25/2024 11:52 AM EST Cass Turcios MD LAB BLOOD ORDERABLES Final Resul t [facility] ([facility] HOSPITAL LAB [address] [place] [address], documented in this encounter Visit Diagnoses Diagnosis Anemia, unspecified Chronic diastolic (congestive) heart failure ([facility] V24, [facility] V28) Other pericardial effusion (noninflammatory) End stage renal disease ([facility] V24, [facility] V28) End stage renal disease documented in this encounter Additional Health Concerns Infection Onset Date Last Indicated Resolved Time Respiratory Rule-Out 03/25/2024 03/25/2024 025 8:14 PM EST documented as of this encounter Care Teams Marble Cutter Operator Relationship Specialty Start Date End Date Cass Turcios MD [address] [facility] [address] [place] [address] PCP - General Geriatric Medicine 04/02/24 documented as of this encounter
--- OUTSIDE RECORDS SUMMARY | 2024-07-17 11:23 | XMS_ITS | Encounter Summary ---
Author Organization [facility], Address [address] [place] [address] Phone Care Team Providers Care Parachute Packer Name Role Phone Jade Lewis MD Primary Care Provider [phone] Reason for Visit * Reason Comments Med Refill Encounter Details Date Type Department Care Team ([facility] st Contact Info) Description 10/28/2020 Refill [facility] [address] [place] [phone] Alejandro Santana MD [address] [place] [phone] Social History Tobacco Use Types Packs/Day Years [...] on filedocumented in this encounter Care Teams Parachute Packer Relationship Specialty Start Date End Date Jade Lewis MD [address] [place] [address] PCP - General Internal Medicine 04/25/22 documented as of this encounter
--- OUTSIDE RECORDS SUMMARY | 2024-07-17 11:23 | XMS_ITS | Encounter Summary ---
Author Organization [facility] Address [address] [place] [address] Phone Care Team Providers Care Carbon Sequestration Plant Operator Name Role Phone Jade Lewis MD Primary Care Provider + [phone] Reason for Visit * Reason Comments Med Refill Encounter Details Date Type Department Care Team ([facility] st Contact Info) Description 04/30/2021 Refill [facility] [address] [place] [phone] Alejandro Santana MD [address] [place] [phone] Social History Tobacco Use Types Packs/Day Years [...] on filedocumented in this encounter Care Teams Carbon Sequestration Plant Operator Relationship Specialty Start Date End Date Jade Lewis MD [address] [place] [address] PCP - General Internal Medicine 04/25/22 documented as of this encounter
--- OUTSIDE RECORDS SUMMARY | 2024-07-17 11:23 | XMS_ITS | Encounter Summary ---
Author Organization [facility], Address [address] [place] [address] Phone Care Team Providers Care Sustainment Logistics Analyst Name Role Phone Jade Lewis MD Primary Care Provider [phone] Reason for Visit * Reason Comments Med Refill Encounter Details Date Type Department Care Team (Late st Contact Info) Description 05/22/2023 Refill [facility] [address] [place] [phone] [facility] [place] [address] Social History Tobacco Use Types Packs/Day Years [...] on filedocumented in this encounter Care Teams Sustainment Logistics Analyst Relationship Specialty Start Date End Date Jade Lewis MD [address] [place] [address] PCP - General Internal Medicine 04/25/22 documented as of this encounter
--- OUTSIDE RECORDS SUMMARY | 2024-07-17 11:23 | XMS_ITS | Encounter Summary ---
Author Organization [facility], Address [address] [place] [address] Phone Care Team Providers Care Nurses Director Name Role Phone Jade Lewis MD Primary Care Provider [phone] Reason for Visit * Reason Comments Med Refill Encounter Details Date Type Department Care Team (Late st Contact Info) Description 09/17/2022 Refill [facility] [address] [place] [phone] Malcolm Taylor MD [address] [place] [address] [place] [address] Social History Tobacco Use Types Packs/Day Years [...] on filedocumented in this encounter Care Teams Nurses Director Relationship Specialty Start Date End Date Jade Lewis MD [address] [place] [address] PCP - General Internal Medicine 04/25/22 documented as of this encounter
--- OUTSIDE RECORDS SUMMARY | 2024-07-17 11:23 | XMS_ITS | Encounter Summary ---
Author Organization [facility], Address [address] [place] [address] Phone Care Team Providers Care Police Artist Name Role Phone Jade Lewis MD Primary Care Provider [phone] Reason for Visit * Reason Comments Med Refill Encounter Details Date Type Department Care Team (Late st Contact Info) Description 10/27/2023 Refill [facility] [address] [place] [phone] Malcolm Taylor MD [address] [place] [address] [place] [address] Social History Tobacco Use Types Packs/Day Years [...] filedocumented in this encounter Care Teams Police Artist Relationship Specialty Start Date End Date Jade Lewis MD [address] [place] [address] PCP - General Internal Medicine 04/25/22 documented as of this encounter
--- OUTSIDE RECORDS SUMMARY | 2024-07-17 11:23 | XMS_ITS | Encounter Summary ---
Author Organization [facility] Address [address] [place] [address] Care Team Providers Care Young Adult Librarian Name Role Phone Cass Turcios MD Primary Care Provider [phone] Encounter Details Date Type Department Care Team (Late st Contact Info) Description 05/21/2024 Lab Requisition [facility] - Main Lab [address] [facility] [place] [place] [address] Laurence Florence MD [address] [place] [address] Chronic combined systolic (congestive) and diastolic (congestive) [...] loved ones. For example, child care centre manager or elderly care for an older adult? [...] CBC auto differential (05/21/2024 5:40 AM EDT) [facility] WBC 14.4(H) 4.8 - 10.8 K/mcL LAB HEMETOLOGY METHOD 05/21/2024 12:49 PM [facility] RBC 3.80(L) 4.50 - 5.50 M/mcL LAB HEMETOLOGY METHOD 05/21/2024 12:49 PM [facility] Hemoglobin 9.5(L) 13.5 - 17.5 g/dL LAB HEMETOLOGY METHOD 05/21/2024 12:49 PM [facility] Hematocrit 33.1(L) 42.0 - 54.0 % LAB HEMETOLOGY METHOD 05/21/2024 12:49 PM [facility] MCV 87.1 79.0 - 98.0 FL LAB HEMETOLOGY METHOD 05/21/2024 12:49 PM [facility] MCH 25.0(L) 27.0 - 32.0 pcg LAB HEMETOLOGY METHOD 05/21/2024 12:49 PM [facility] MCHC 28.7(L) 32.0 - 37.0 g/dL LAB HEMETOLOGY METHOD 05/21/2024 12:49 PM [facility] RDW 19.6(H) 11.0 - 15.0 % LAB HEMETOLOGY METHOD 05/21/2024 12:49 PM [facility] Platelets 447(H) 130 - 400 K/mcL LAB HEMETOLOGY METHOD 05/21/2024 12:49 PM EDT [facility] MPV 11.3(H) 7.0 - 11.0 FL LAB [facility]OLOGY [facility]24 [facility] NRBC 0.0 <1.0 % LAB [facility]OLOGY [facility]2024 12[facility] NRBC Absolute 0.00 <0.10 K/mcL LAB HEMETOLOGY METHOD 05/21/2024 12:49 PM [facility] Neutrophils Relative 76.8 % LAB HEMETOLOGY METHOD 05/21/2024 12:49 PM [facility] Lymphocytes Relative 13.0 % LAB HEMETOLOGY METHOD 05/21/2024 12:49 PM [facility] Monocytes Relative 7.0 % LAB HEMETOLOGY METHOD 05/21/2024 12:49 PM [facility] Eosinophils Relative 2.0 % LAB HEMETOLOGY METHOD 05/21/2024 12:49 PM [facility] Basophils Relative 0.4 % LAB HEMETOLOGY METHOD 05/21/2024 12:49 PM [facility] Immature Granulocytes Relative 0.8 % LAB HEMETOLOGY METHOD 05/21/2024 12:49 PM [facility] Neutrophils Absolute 11.05(H) 1.50 - 7.00 K/mcL LAB HEMETOLOGY METHOD [facility]/21[facility]2024 12[facility] Lymphocytes Absolute 1.87 1.00 - 5.00 K/mcL LAB HEMETOLOGY METHOD 05/21/2024 12:49 PM [facility] Monocytes Absolute 1.00 0.20 - 1.00 K/mcL LAB HEMETOLOGY METHOD 05/21/2024 12:49 PM EDT [facility] Eosinophils Absolute 0.29 0.00 - 0.50 K/[facility] LAB HEMETOLOGY METHOD 05/21/2024 12:49 PM EDT [facility] Basophils Absolute 0.06 0.00 - 0.20 K/mcL LAB HEMETOLOGY METHOD 05/21/2024 12:49 PM EDT [facility] Immature Granulocytes Absolute 0.11(H) 0.00 - 0.03 K/[facility] LAB HEMETOLOGY METHOD 05/21/2024 12:49 PM EDT [facility] Blood Venous blood specimen / Unknown Venipuncture / Unknown 05/21/2024 5:40 AM EDT 05/21/2024 11:19 AM EDT us Laurence Florence MD LAB BLOOD ORDERABLES Final Resu lt [facility] [address] [place] [address], [place] [phone] * (ABNORMAL) Basic metabolic panel (05/21/2024 5:40 AM EDT) Sodium 137 133 - 145 mmol/L LAB CHEMISTRY METHOD 05/21/2024 2:38 PM [facility] Potassium 5.3 3.5 - 5.5 mmol/L LAB CHEMISTRY METHOD 05/21/2024 2:38 PM T [facility] Comment:Hemolysis present Chloride 99 96 - 110 mmol/L LAB CHEMISTRY METHOD 05/21/2024 2:38 PM [facility] CO2 27 21 - 32 mmol/L LAB CHEMISTRY METHOD 05/21/2024 2:38 PM [facility] Anion Gap 11 3 - 11 LAB CHEMISTRY METHOD 05/21/2024 2:38 PM [facility] Glucose 76 70 - 100 mg/dL LAB CHEMISTRY METHOD 05/21/2024 2:38 PM EDT [facility] BUN 58(H) 5 - 25 mg/dL LAB CHEMISTRY METHOD 05/21/2024 2:38 PM EDT [facility] Creatinine 7.10(H) 0.70 - 1.30 mg/dL LAB CHEMISTRY METHOD 05/21/2024 2:38 PM EDT [facility] eGFR 8(L) >=60 mL/min/1. 73m2 LAB CHEMISTRY METHOD 05/21/2024 2:38 PM EDT [facility] Comment:Calculation based on the??Chronic Kidney Disease Epidemiology Collaboration (CKD-EPI) equation refit??without adjustment for race. BUN/Creatinine Ratio 8.2 LAB CHEMISTRY METHOD 05/21/2024 2:38 PM EDT [facility] Calcium 8.6 8.5 - 10.5 mg/dL LAB CHEMISTRY METHOD 05/21/2024 2:38 PM EDT [facility] Blood Venous blood specimen / Unknown Venipuncture / Unknown 05/21/2024 5:40 AM EDT 05/21/2024 11:19 AM EDT us Laurence Flroence MD LAB BLOOD ORDERABLES Final Resu lt [facility] [address] [place] [address], documented in this encounter Visit Diagnoses Diagnosis Chronic combined systolic (congestive) and diastolic (congestive) heart failure (CMS/HCC V24, CMS/HCC V28) End stage renal disease (CMS/HCC V24, CMS/HCC V28) End stage renal disease documented in this encounter Care Teams Young Adult Librarian Relationship Specialty Start Date End Date Cass Turcios MD [address] [place] [address] [address] [place] [address] PCP - General Geriatric Medicine 04/02/24 documented as of this encounter
--- OUTSIDE RECORDS SUMMARY | 2024-07-17 11:23 | XMS_ITS | Clinical Summary ---
Author Organization [facility] Address [address] [facility] [address] [place] [address] Phone Care Team Providers Care Breakfast Attendant Name Role Phone Jade Lewis MD Primary Care Provider + [phone] Allergies Active Allergy Reactions Criticality Noted Date [...] FOR WHEEZING 1 Active ergocalciferol 1.25 MG (20368 UT) capsule Take 1 capsule (50,000 Units total) by mouth 1 (one) time per week 4 capsule 5 1 Active cetirizine (ZyrTEC) 10 MG tablet Take 10 mg by mouth 1 (one) time each day Active Fluticasone-Salm eterol 100-50 MCG/ACT aerosol powder [facility] [place] - [id number] [place] [phone] 60.00 Each 5 30 INHALE 1 PUFF [...] mouth daily. Prescribed by Dr. Car Mcdonald (rouge mixer). 2 Active aspirin (ST ANITRA) 81 MG [...] asthma 03/31/2022 Overview (09/15/2022): 08/19/21 Eval at [facility]. Increase Advair to 100/50 F/u 6 months. 05/24/22 Eval at [facility], Dr Funez. Recommends Trelegy once daily. Plan for sleep study to assess need for CPAP. 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 Permacath for dialysis removed and a new one replaced. Will get cefazolin x 4 weeks after dialysis. Lantus decreased to 30 units. Pt to continue on Eliquis for the next few weeks until his AV fistula is ready for utilization. Abdominal pain 03/19/2021 Bacteremia 03/19/2021 Venous thrombosis 01/04/2021 Overview (01/26/2021): 12/13/20-12/19/20 Admitted to [facility] for non-occulsive thrombosis in R internal jugular vein. Acute embolism and thrombosis of left internal j ugular vein 12/21/2020 End stage renal failure on dialysis 11/19/2020 Overview (10/05/2021): [facility] Hypocalcemia 11/13/2020 Angina pectoris 11/09/2020 Coagulation defect 11/09/2020 Headache 11/09/2020 Type 2 diabetes mellitus with diabetic nephropat hy 11/09/2020 Edema 09/28/2020 Iron deficiency anemia 12/24/2019 Chronic kidney disease stage 4 02/19/2019 Anemia in chronic kidney disease 02/19/2019 History of colonoscopy 03/30/2016 Overview (01/26/2021): Approximately 2010 in [place] per Pt 11/24/20 Eval at [facility] GI, recommend colonoscopy. Resolved Problems [...] diabetes mellitus 06/12/2015 Overview (01/26/2021): Followed by [facility] Endocrinology. Last visit 06/23/15, HbA1c = 11.1%. Has diabetic nephropathy, retinopathy, and peripheral neuropathy. Switched to Novolin 70/30. Taking 23 units TID with meals, may titrate up/down depending on BG readings over the next few days. They are trying to submit PA for Lyrica. 04/27/16 F/u with Estefani Kaur, DO at [facility] Endocrine. Titrate Novolog 70/30 to 22 units with breakfast, 30 units with dinner. If no improvement or if ongoing hypoglycemia will consider switchign to Levemir and Humalog; F/u 3 months 11/03/20 F/u [facility] Endocrine. A1c > 12% Continue Lanuts 52 and Humalog 4-8 untsi with meals. Consider using NPH during peritoneal dialysis Encounters Date Type Department Care Team Description 07/17/2024 Treatment [facility], [address] [place] [address] Arely Hernández APRN End stage renal disease; Dependence on renal dialysis 07/10/2024 Orders Only [facility] [address] [address] Car Mcdonald MD 07/03/2024 Orders Only [facility] [address] [address] Car Mcdonald MD 06/26/2024 Orders Only [facility] [address] [address] Car Mcdonald MD 06/26/2024 Treatment [facility], [address] [place] [address] Arely Hernández APRN End stage renal disease; Dependence on renal dialysis 06/19/2024 Orders Only [facility] [address] [address] Car Mcdonald MD 06/17/2024 Orders Only [facility] [address] [address] Car Mcdonald MD 06/12/2024 Treatment [facility] [address] [place] [address] Donny Griggs MD End stage renal disease; Dependence on renal dialysis 05/01/2024 Orders Only [facility] [address] [address] Car Mcdonald MD 2024 Orders Only [facility] [address] [address] Car Mcdonald MD 2024 Treatment [facility] [address] [place] [address] Arely Hernández APRN 04/24/2024 Treatment [facility] [address] [place] [address] Malcolm Taylor MD End stage renal disease; Dependence on renal dialysis 04/24/2024 Orders Only [facility] [address] [address] Car Mcdonald MD 04/22/2024 Orders Only [facility] [address] [address] Car Mcdonald MD 04/19/2024 Orders Only [facility] [address] [address] Car Mcdonald MD 04/19/2024 Treatment [facility] [address] [place] [address] Arely Hernández, WILLIE from Last 3 Months Immunizations Immunization Administration [...] Urea Reduction 63(L) 65 - 80 % [facility] 07/10/2024 07/11/2024 9:4 5 AM EDT Narrative Resulting Agency Comment Specimen source: Plasma Car Mcdonald MD LAB BLOOD ORDERABLES Final Re sult Performing Organization Address [facility] Co de Phone Number [facility] See order comments or contact performing lab Unknown, [place] * (ABNORMAL) POST CHEMISTRY (07/10/2024) Only the most recent of5 resultswithin the time period is included. BUN Post Dialysis 26(H) 6 - 19 mg/dL [facility] 07/10/2024 07/11/2024 9:4 5 AM EDT Narrative [facility] - 07/12/2024 Unless otherwise specified, test(s) performed at: [facility], [address] [place], [place] [id number] MARKETING AND PROMOTIONS MANAGER: Homero Garcia M.D. For any questions, please call customer service at FREQUENCY:MONTHLY Resulting Agency Comment Specimen source: Plasma Car Mcdonald MD LAB BLOOD ORDERABLES Final Re sult Performing Organization Address City/[facility]/ZIP Co de Phone Number [facility] See order comments or contact performing lab Unknown, [place] * IMMUNO CHEMISTRY (07/10/2024) Only the most recent of3 resultswithin the time period is included. Hep B Surface Ag Negative Negative [facility] 07/10/2024 07/11/2024 11: 02 AM EDT Narrative Resulting Agency Comment Specimen source: Serum Car Mcdonald MD LAB BLOOD ORDERABLES Final Re sult Performing Organization Address [facility] Co de Phone Number [id number] [facility] See order comments or contact performing lab Unknown, [place] * (ABNORMAL) HEMATOLOGY (07/10/2024) Only the most recent of8 resultswithin the time period is included. Hemoglobin 10.5(L) 14.0 - 18.0 g/dL [facility] Hemoglobin x 3 31.5(L) 42.0 - 54.0 % [facility] 07/10/2024 07/11/2024 9:4 9 AM EDT Narrative [facility] - 07/11/2024 Unless otherwise specified, test(s) performed at: [facility], [address] [place] [address] MARKETING AND PROMOTIONS MANAGER: Homero Garcia M.D. For any questions, please call customer service at FREQUENCY:MONTHLY Resulting Agency Comment Specimen source: Blood Car Mcdonald MD LAB BLOOD ORDERABLES Final Re sult Performing Organization Address [facility] de Phone Number [employer] [facility] See order comments or contact performing [...] 07/10/2024 07/11/2024 11: 02 AM EDT Narrative [facility] - 07/11/2024 Unless otherwise specified, test(s) performed at: [facility], [address] [place] [address] MARKETING AND PROMOTIONS MANAGER: Homero Garcia M.D. For any questions, please call customer service at FREQUENCY:MONTHLY Resulting Agency Comment Specimen source: Serum us Car Mcdonald MD LAB BLOOD ORDERABLES Edited R esult - Final [employer] [email or web address] See order comments or contact performing lab Unknown, [place] * (ABNORMAL) SPECIAL CHEMISTRY (06/17/2024) Hemoglobin A1C 6.9(H) 4.8 - 5.9 % [email or web address] 06/17/2024 06/18/2024 8:4 3 AM EDT Narrative [facility] - 06/18/2024 Unless otherwise specified, test(s) performed at: [facility], [address] [place] [address] MARKETING AND PROMOTIONS MANAGER: Homero Garcia M.D. For any questions, please call customer service at FREQUENCY:MONTHLY Resulting Agency Comment Specimen source: Blood us Car Mcdonald MD LAB BLOOD BANK TEST ORDERABLE S Final Result [facility] See order comments or contact performing lab Unknown, [place] * [facility] Results (05/01/2024) Only the most recent of3 resultswithin the time period is included. eKt/V (Tattersall) 0.87 [facility] eKdrt/V 0.85 [facility] eNPCR 1.07 [facility] Center spKt/V Gotch 1.12 [facility] PCR 74.63 [facility] nPCR_HD 1.23 [facility] eKt/V Gotch 0.85 Knowledg e Center spKt/V (Daugirdas II) 1.10 [facility] WSTDKT/V 2.0 [facility] 05/01/2024 05/01/2024 María Ordering Provider LAB BLOOD ORDERABLES Final Result [facility] Contact Performing lab Unknown, [place] from Last 3 Months [place] Sub[place] Plan / Payer (Ef fective 2022-Present) Name:Beau Marie Relation to Subscriber:Self Name:Beau Marie Payer ID:[id number] (NAIC) Type:Not on file Address: [address] [place] [address] [phone] Medicaid [place] Care Teams Breakfast Attendant Relationship Specialty Start Date End Date Jade Lewis MD [address] [place] [address] PCP - General Internal Medicine 04/25/22
--- OUTSIDE RECORDS SUMMARY | 2024-07-17 11:23 | XMS_ITS | Encounter Summary ---
Author Organization [facility], Address [address] [place] [address] Phone Care Team Providers Care Cordwainer Name Role Phone Jade Lewis MD Primary Care Provider [phone] Reason for Visit * Reason Comments Med Refill Encounter Details Date Type Department Care Team (Late st Contact Info) Description 12/24/2022 Refill [facility] [address] [place] [phone] Car Mcdonald MD [facility] [place] [address] Social History Tobacco Use Types Packs/Day Years [...] on filedocumented in this encounter Care Teams Cordwainer Relationship Specialty Start Date End Date Jade Lewis MD [address] [place] [address] PCP - General Internal Medicine 04/25/22 documented as of this encounter
--- OUTSIDE RECORDS SUMMARY | 2024-07-17 11:23 | XMS_ITS | Encounter Summary ---
Author Organization [facility] Address [address] [place] [address] Care Team Providers Care Chairlift Operator Name Role Phone Cass Turcios MD Primary Care Provider Encounter Details Date Type Department Care Team (Late st Contact Info) Description 05/20/2024 Lab Requisition [facility] - Main Lab [address] [facility] [place] [address] Laurence Florence MD [address] [place] [address] Elevated white blood cell count, unspecified Social [...] mmol/L LAB CHEMISTRY METHOD 05/20/2024 1:59 PM [facility] Potassium 5.8(H) 3.5 - 5.5 mmol/L LAB CHEMISTRY METHOD 05/20/2024 1:59 PM [facility] Chloride 100 96 - 110 mmol/L LAB CHEMISTRY METHOD 05/20/2024 1:59 PM [facility] CO2 26 21 - 32 mmol/L LAB CHEMISTRY METHOD 05/20/2024 1:59 PM [facility] Anion Gap 12(H) 3 - 11 LAB CHEMISTRY METHOD 05/20/2024 1:59 PM [facility] Glucose 130(H) 70 - 100 mg/dL LAB CHEMISTRY METHOD 05/20/2024 1:59 PM [facility] BUN 76(H) 5 - 25 mg/dL LAB CHEMISTRY METHOD 05/20/2024 1:59 PM [facility] Creatinine 9.66(H) 0.70 - 1.30 mg/dL LAB CHEMISTRY METHOD 05/20/2024 1:59 PM [facility] eGFR 5(L) >=60 mL/min/1. 73m2 LAB CHEMISTRY METHOD 05/20/2024 1:59 PM [facility] Comment:Calculation based on the??Chronic Kidney Disease Epidemiology Collaboration (CKD-EPI) equation refit??without adjustment for race. BUN/Creatinine Ratio 7.9 LAB CHEMISTRY METHOD 05/20/2024 1:59 PM [facility] Calcium 9.2 8.5 - 10.5 mg/dL LAB CHEMISTRY METHOD 05/20/2024 1:59 PM [facility] AST (SGOT) 9(L) 10 - 42 unit/L LAB CHEMISTRY METHOD 05/20/2024 1:59 PM [facility] ALT (SGPT) 14 10 - [...] Final Resu lt [facility] [address] [place] [address], * (ABNORMAL) Complete blood count (05/20/2024 6:04 [...] Final Resu lt [facility] [address] [place] [address], documented in this encounter Visit Diagnoses Diagnosis Elevated white blood cell count, unspecified documented in this encounter Care Teams Chairlift Operator Relationship Specialty Start Date End Date Cass Turcios MD [address] [place] [address] [address] [place] [address] PCP - General Geriatric Medicine 04/02/24 documented as of this encounter
--- OUTSIDE RECORDS SUMMARY | 2024-07-17 11:23 | XMS_ITS | Encounter Summary ---
Author Organization [facility] Address [address] [place] [address] Care Team Providers Care Outboard Motorboat Operator Name Role Phone Cass Turcios MD Primary Care Provider [phone] Encounter Details Date Type Department Care Team (Late st Contact Info) Description 05/30/2024 Lab Requisition [facility] - Main Lab 299 [facility] [place] [address] Laurence Florence MD [address] [place] [address] Chronic respiratory failure with hypoxia (CMS/HCC V24, [...] MICROBIOLOGY - GENERAL MALAIKA HURD Final Result [facility] [address] [place] [address], [place] [phone] * Lactate (05/30/2024 7:36 AM EDT) [facility] Lactate 0.6 0.4 - 2.0 mmol/L LAB CHEMISTRY METHOD 05/30/2024 8:47 AM EDT [facility] Blood Venous blood specimen / Unknown Venipuncture / Unknown 05/30/2024 7:36 AM EDT 05/30/2024 8:11 AM EDT us Laurence Florence MD LAB BLOOD ORDERABLES Final Resu lt [facility] [address] [place] [address], [place] [phone] * (ABNORMAL) C-reactive protein (05/30/2024 7:36 AM EDT) [facility] C-Reactive Protein 11.60(H) <=0.50 mg/dL LAB CHEMISTRY METHOD 05/30/2024 8:51 AM EDT [facility] Blood Venous blood specimen / Unknown Venipuncture / Unknown 05/30/2024 7:36 AM EDT 05/30/2024 8:11 AM EDT us Laurence Florence MD LAB BLOOD ORDERABLES Final Resu lt [facility] [address] [place] [address], [place] [phone] * (ABNORMAL) Sedimentation rate (05/30/2024 7:36 AM EDT) [facility] Sed Rate >130(H) 0 - [...] [facility] [address] [place] [address], [place] [phone] * (ABNORMAL) Comprehensive metabolic panel (05/30/2024 7:36 AM EDT) Sodium 140 133 - 145 mmol/L LAB CHEMISTRY METHOD 05/30/2024 9:08 AM [facility] Potassium 4.2 3.5 - 5.5 mmol/L LAB CHEMISTRY METHOD 05/30/2024 9:08 AM [facility] Chloride 104 96 - 110 mmol/L LAB CHEMISTRY METHOD 05/30/2024 9:08 AM [facility] CO2 28 21 - 32 mmol/L LAB CHEMISTRY METHOD 05/30/2024 9:08 AM [facility] Anion Gap 8 3 - 11 LAB CHEMISTRY METHOD 05/30/2024 9:08 AM [facility] Glucose 77 70 - 100 mg/dL LAB CHEMISTRY METHOD 05/30/2024 9:08 AM [facility] BUN 35(H) 5 - 25 mg/dL LAB CHEMISTRY METHOD 05/30/2024 9:08 AM [facility] Creatinine 5.30(H) 0.70 - 1.30 mg/dL LAB CHEMISTRY METHOD 05/30/2024 9:08 AM [facility] eGFR 11(L) >=60 mL/min/1. 73m2 LAB CHEMISTRY METHOD 05/30/2024 9:08 AM [facility] Comment:Calculation based on the??Chronic Kidney Disease Epidemiology Collaboration (CKD-EPI) equation refit??without adjustment for race. BUN/Creatinine Ratio 6.6 LAB CHEMISTRY METHOD 05/30/2024 9:08 AM [facility] Calcium 9.0 8.5 - 10.5 mg/dL LAB CHEMISTRY METHOD 05/30/2024 9:08 AM [facility] AST (SGOT) 10 10 - 42 unit/L LAB CHEMISTRY METHOD 05/30/2024 9:08 AM [facility] ALT (SGPT) 13 10 - 60 unit/L LAB CHEMISTRY METHOD 05/30/2024 9:08 AM [facility] Alkaline Phosphatase 141(H) 42 - 121 unit/L LAB CHEMISTRY METHOD 05/30/2024 9:08 AM [facility] Total Protein 6.3 6.0 - 8.0 g/dL LAB CHEMISTRY METHOD 05/30/2024 9:08 AM [facility] Albumin 2.5(L) 3.2 - 5.0 g/dL LAB CHEMISTRY METHOD 05/30/2024 9:08 AM [facility] Total Bilirubin 0.5 0.0 - 1.4 mg/dL LAB CHEMISTRY METHOD 05/30/2024 9:08 AM [facility] Blood Venous blood specimen / Unknown Venipuncture / Unknown 05/30/2024 7:36 AM EDT 05/30/2024 8:11 AM EDT us Laurence Florence MD LAB BLOOD ORDERABLES Final Resu lt [facility] [address] [place] [address], * (ABNORMAL) Complete blood count (05/30/2024 7:36 AM EDT) WBC 9.7 4.8 - 10.8 K/mcL LAB HEMETOLOGY METHOD 05/30/2024 8:29 AM EDT [facility] RBC 3.20(L) 4.50 - 5.50 M/mcL LAB HEMETOLOGY METHOD 05/30/2024 8:29 AM [facility] Hemoglobin 7.7(L) 13.5 - 17.5 g/dL LAB HEMETOLOGY METHOD 05/30/2024 8:29 AM [facility] Hematocrit 26.0(L) 42.0 - 54.0 % LAB HEMETOLOGY METHOD 05/30/2024 8:29 AM [facility] MCV 81.5 79.0 - 98.0 FL LAB HEMETOLOGY METHOD 05/30/2024 8:29 AM [facility] MCH 24.1(L) 27.0 - 32.0 pcg LAB HEMETOLOGY METHOD 05/30/2024 8:29 AM [facility] MCHC 29.6(L) 32.0 - 37.0 g/dL LAB HEMETOLOGY METHOD 05/30/2024 8:29 AM [facility] RDW 17.8(H) 11.0 - 15.0 % LAB HEMETOLOGY METHOD 05/30/2024 8:29 AM [facility] Platelets 244 130 - 400 K/mcL LAB HEMETOLOGY METHOD 05/30/2024 8:29 AM [facility] MPV 11.1(H) 7.0 - 11.0 FL LAB HEMETOLOGY METHOD 05/30/2024 8:29 AM [facility] NRBC 0.0 <1.0 % LAB HEMETOLOGY METHOD 05/30/2024 8:29 AM [facility] NRBC Absolute 0.00 <0.10 K/mcL LAB HEMETOLOGY METHOD 05/30/2024 8:29 AM [facility] Blood Venous blood specimen / Unknown Venipuncture / Unknown 05/30/2024 7:36 AM EDT 05/30/2024 8:11 AM EDT us Laurence Florence MD LAB BLOOD ORDERABLES Final Resu lt [facility] [address] [place] [address], documented in this encounter Visit Diagnoses Diagnosis Chronic respiratory failure with hypoxia (CMS/[facility] V24, CMS/[facility] V28) Encounter for orthopedic aftercare following surgical amputation Encounter for surgical aftercare following surgery on the circulatory system Peripheral vascular disease, unspecified ([facility] V24) Peripheral vascular disease, unspecified documented in this encounter Care Teams Outboard Motorboat Operator Relationship Specialty Start Date End Date Cass Turcios MD [address] [place] [address] [address] [place] [address] PCP - General Geriatric Medicine 04/02/24 documented as of this encounter
--- OUTSIDE RECORDS SUMMARY | 2024-07-17 11:23 | XMS_ITS | Encounter Summary ---
Author Organization [facility], Address [address] [place] [address] Phone Care Team Providers Care Compo Conveyor Operator Name Role Phone Jade Lewis MD Primary Care Provider + [phone] Reason for Visit * Reason Comments Med Refill Encounter Details Date Type Department Care Team ([facility] st Contact Info) Description 06/25/2019 Refill [facility] [address] [place] [address] Mercedes Law MD Social History [...] on filedocumented in this encounter Care Teams Compo Conveyor Operator Relationship Specialty Start Date End Date Jade Lewis MD [address] [place], [place] [phone] PCP - General Internal Medicine 04/25/22 documented as of this encounter
--- OUTSIDE RECORDS SUMMARY | 2024-07-17 11:23 | XMS_ITS | Encounter Summary ---
Author Organization [facility] Address [address] [place] [address] Care Team Providers Care Tractor Sweeper Operator Name Role Phone Cass Turcios MD Primary Care Provider [phone] Encounter Details Date Type Department Care Team (Late st Contact Info) Description 05/30/[address] [facility] - Main Lab 299 [facility] [place] [address] Laurence Florence MD [address] [place] [address] Chronic respiratory failure with hypoxia (CMS/HCC V24, [...] for your loved ones. For example, children's book author or elderly care for an older adult? [...] us Laurence Florence MD LAB MICROBIOLOGY - [facility] MALAIKA HURD Final Result [facility] [address] [place] [address], documented in this encounter Visit Diagnoses Diagnosis Chronic respiratory failure with hypoxia (CMS/HCC V24, CMS/HCC V28) Encounter for orthopedic aftercare following surgical amputation Encounter for surgical aftercare following surgery on the circulatory system Peripheral vascular disease, unspecified ([facility] V24) Peripheral vascular disease, unspecified documented in this encounter Care Teams Tractor Sweeper Operator Relationship Specialty Start Date End Date Cass Turcios MD [address] [place] [address] [address] [place] [address] PCP - General Geriatric Medicine 04/02/24 documented as of this encounter
--- OUTSIDE RECORDS SUMMARY | 2024-07-17 11:23 | XMS_ITS | Encounter Summary ---
Author Organization [facility], Address [address] [place] [address] Phone Care Team Providers Care Shell Freezing Machine Operator Name Role Phone Jade Lewis MD Primary Care Provider + [phone] Reason for Visit * Reason Comments Med Refill Encounter Details Date Type Department Care Team (Late st Contact Info) Description 06/13/2023 Refill [facility] [address] [place] [phone] Malcolm Taylor MD [address] [place] [phone] Social History Tobacco Use Types Packs/Day Years [...] on filedocumented in this encounter Care Teams Shell Freezing Machine Operator Relationship Specialty Start Date End Date Jade Lewis MD [address] [place] [address] PCP - General Internal Medicine 04/25/22 documented as of this encounter
--- OUTSIDE RECORDS SUMMARY | 2024-07-17 11:23 | XMS_ITS | Encounter Summary ---
Author Organization [facility], Address [address] [place] [address] Phone Care Team Providers Care Data Entry Operator Name Role Phone Jade Lewis MD Primary Care Provider + [phone] Reason for Visit * Reason Comments Med Refill Encounter Details Date Type Department Care Team ([facility] st Contact Info) Description 11/27/2020 Refill [facility] [address] [place] [phone] Alejandro Santana MD [address] [place] [phone] Social History Tobacco Use Types Packs/Day Years [...] in this encounter Care Teams Data Entry Operator Relationship Specialty Start Date End Date Jade Lewis MD [address] [place] [address] PCP - General Internal Medicine 04/25/22 documented as of this encounter
== END 2024-07-16 10:23 | disposition home or self-care (01) ==
LOC: HO.HOSX 10:22
PROVIDERS: Visit Provider Orthopaedic Surgery
DX: I96 Gangrene, not elsewhere classified (principal); E11.9 Type 2 diabetes mellitus without complications; I50.43 Acute on chronic combined systolic (congestive) and diastolic (congestive) heart failure; N18.6 End stage renal disease; Z99.2 Dependence on renal dialysis; R20.0 Anesthesia of skin; R20.2 Paresthesia of skin; T87.9 Unspecified complications of amputation stump
CPT/HCPCS: 73130; 99212

== ENCOUNTER 2024-07-16 13:52 | Outpatient (AMB) | payer MEDICARE, MEDICAID, SELFPAY ==
--- NOTE | 2024-07-16 13:59 | A.OFFVIS_ITS ---
Intake Visit Reasons: 2w wound check follow up Intake Note: Patient presents for follow up wound check. Accompanied by: Son Allergies Iodinated Contrast Media [Contrast Dye] Allergy (Severe, Verified 07/16/24 15:34) Facial Swelling hydralazine Adverse Reaction (Severe, Verified 07/16/24 15:34) vasculitis HPI HPI 2w wound check follow up: Details: Very pleasant 69-year-old gentleman presents for follow-up regarding nonhealing right AKA stump. He has been doing fairly well. He actually looks better today. He appears to have more energy and appears to be in good spirits. He has this nonhealing right AKA stump which was done on 06/06/2024. In addition he has ulcer on the right 3rd finger. Left great toe nail has fallen off. He now presents for routine follow-up. [facility] Medical History Type 2 diabetes mellitus Dry gangrene PVD (peripheral vascular disease) ESRD needing dialysis Above knee amputation of right lower extremity Left ventricular systolic dysfunction (LVSD) Postop check Acute pericardial effusion Right sided weakness Dehiscence of wound Peripheral arterial disease Cellulitis of right foot Hypertension HFrEF (heart failure with reduced ejection fraction) ESRD (end stage renal disease) Chronic combined systolic and diastolic CHF (congestive heart failure) Chronic pericardial effusion Arthritis Asthma Restless leg syndrome Acute on chronic systolic and diastolic heart failure, NYHA class 3 Anemia ESRD (end stage renal disease) Occlusive thrombus Pulmonary edema ROBERT (obstructive sleep apnea) Hyperlipidemia Hypertension A-V fistula ESRD on dialysis Falling Surgical History Status post creation of pericardial window Postop check Hx of right BKA Status post transmetatarsal amputation of right foot History of transmetatarsal amputation of foot History of surgery H/O colonoscopy Recurrent pleural effusion Pleural effusion on right (07/13/23) Family History Father No problems noted. Mother No problems noted. 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 Review of Systems Const All systems reviewed & are unremarkable except as noted in HPI and below Reports no additional complaints ENT Reports Normal hearing present Card Denies chest pain, Denies chest pain at rest, Denies chest pain with activity and Denies pedal edema Resp Denies cough GI Denies abdominal pain Musc Denies abnormal gait, Denies muscle cramps and Denies radiating pain into limb Skin/Breast Denies skin ulcer and Denies wounds Neuro Reports Normal hearing present and Denies abnormal gait Psych Reports no additional complaints Physical Exam Const General: cooperative, healthy appearing and comfortable Orientation/consciousness: oriented to person, oriented to place and oriented to time HEENT Head: Yes normal to inspection Neck Neck: Yes normal visual inspection Carotids: no bruits Chest Chest palpation & inspection: normal inspection of the chest Resp Effort & Inspection: normal respiratory effort and able to speak in complete sentences Auscultation: clear to auscultation bilaterally, no crackles, no rales, no rhonchi and no wheezes Cardio Other: Left DP signals Rate: regular rate Rhythm: regular rhythm Heart sounds: S1 normal heart sound present and S2 normal heart sound present Bruits: no carotid bruits GI Inspection: Yes normal to inspection Skin Wounds: amputation site (Right AKA stump wound measures 4 x 4 x 2.5 cm.) Hair: normal Neuro General: oriented to person, oriented to place and oriented to time Cranial nerves: Yes CN's II-XII intact bilaterally and Yes Normal hearing present Cognition (Neuro): normal cognition Motor exam (neuro): 5/5 motor strength present throughout Extrem Other: venous exam: No significant superficial varicosities or spider tel angiectasias, minimal edema General: No clubbing, No cyanosis and No edema Psych Appearance: grossly normal Mental Status: mental status grossly normal Speech and movement: Normal speech and movement present Office Procedures Vascular Office Procedure Details Details: Wound debridement note: Preoperative diagnosis: Nonhealing right AKA stump Postoperative diagnosis: Same Procedure: Excisional debridement into muscle Anesthesia: None Estimated blood loss: Minimal Pre-procedure measurement and appearance: 4 x 4 x 2.5 cm. Fibrinous necrotic material Postprocedure measurement and appearance: 4.2 x 4.2 x 3 cm. Clear base. Procedure in detail: Excisional debridement of the lateral portion of the right AKA stump with nonhealing incision line was carried out.. Necrotic devitalized and nonviable tissue was removed. We debrided into muscle using pickups iris scissors and curette. Wound was thoroughly irrigated. At the conclusion wound appeared clean with a good granulation base bleeding well.. Clean and sterile dressing was applied. Patient tolerated the procedure well. Instructions were given to the patient. Follow-up was suggested. This note is constructed using voice recognition software. While every effort has been made to ensure accuracy, systems development manager errors may have been included. Thank you for allowing me to participate in the care of your patient. Yours sincerely, Baltazar Cannon MD, FACS, R.P.V.I. [id number] Debridement, muscle and or fascia (lst 20 sq cm or less) All charges added?: Procedure code (CPT) selection complete Assessment & Plan Assessment & Plan (1) AKA stump complication: Code(s): T87.9 - Unspecified complications of amputation stump Category: Medical Plan: In short patient has nonhealing right AKA stump. We continued to debride this and it appears to be doing somewhat better. We did discuss routine risk factor modification in addition to good nutrition. We will continue with foam dressings and he will follow up with us in approximately 2 weeks time. Thank you for allowing us to assist in his care. Coding Level of Care Code Est Pt Level 4 (51842) Diagnoses AKA stump complication T87.9
--- OUTSIDE RECORDS SUMMARY | 2024-07-16 15:02 | XMS_ITS | Clinical Summary ---
Author Organization [employer] Address [address] [place] [address] 7 [place] [address] Care Team Providers Care Occupational Health Physician Name Role Phone Unavailable Primary Care Provider [...] patient's age to complete this topic [place] [place] [address] STANDARD
--- OUTSIDE RECORDS SUMMARY | 2024-07-16 15:02 | XMS_ITS | Encounter Summary ---
Author Organization [facility] Address [address] [place] [address] Care Team Providers Care In House Cra Name Role Phone Cass Turcios MD Primary Care Provider [phone] Encounter Details Date Type Department Care Team (Latest Contact Info) Description 05/24/2024 Lab Requisition [facility] - Main Lab [address] [facility] [place] [address] Laurence Florence MD [address] [place] [phone] Chronic combined systolic (congestive) and diastolic (congestive) [...] your loved ones. For example, child care assistant or elderly care for an older [...] mellitus without complications End stage renal disease ([facility]/HCC) BASIC METABOLIC PANEL Routine 05/24/2024 5:56 AM EDT Chronic combined systolic (congestive) and diastolic (congestive) heart failure Type 2 diabetes mellitus without complications End stage renal disease ([facility]/HCC) documented in this encounter Results * (ABNORMAL) CBC auto differential (05/24/2024 5:56 AM EDT) [facility] WBC 9.3 4.8 - 10.8 K/mcL LAB [...] 9:31 AM [facility] Lymphocytes Absolute 1.52 1.00 - 5.00 K/mcL LAB HEMETOLOGY METHOD 05/24/2024 9:31 AM [facility] Monocytes Absolute 0.98 0.20 - 1.00 K/mcL LAB HEMETOLOGY METHOD 05/24/2024 9:31 AM EDT [facility] Eosinophils Absolute 0.42 0.00 - 0.50 K/mcL LAB HEMETOLOGY METHOD 05/24/2024 9:31 AM EDT [facility] Basophils Absolute 0.04 0.00 - 0.20 K/mcL LAB HEMETOLOGY METHOD 05/24/2024 9:31 AM EDT [facility] Immature Granulocytes Absolute 0.06(H) 0.00 - 0.03 K/mcL LAB HEMETOLOGY METHOD 05/24/2024 9:31 AM EDT [facility] Blood Venous blood specimen / Unknown Venipuncture / Unknown 05/24/2024 5:56 AM EDT 05/24/2024 8:41 AM EDT us Laurence Florence MD LAB BLOOD ORDERABLES Final Resu lt [facility] [address] [place] [address], [place] [phone] * (ABNORMAL) Basic metabolic panel (05/24/2024 5:56 AM EDT) Sodium 134 133 - 145 mmol/L LAB CHEMISTRY METHOD 05/24/2024 9:53 AM [facility] Potassium 4.8 3.5 - 5.5 mmol/L LAB CHEMISTRY METHOD 05/24/2024 9:53 AM [facility] Chloride 100 96 - 110 mmol/L LAB CHEMISTRY METHOD 05/24/2024 9:53 AM [facility] CO2 26 21 - 32 mmol/L LAB CHEMISTRY METHOD 05/24/2024 9:53 AM [facility] Anion Gap 8 3 - 11 LAB CHEMISTRY METHOD 05/24/2024 9:53 AM [facility] Glucose 131(H) 70 - 100 mg/dL LAB CHEMISTRY METHOD 05/24/2024 9:53 AM EDT [facility] BUN 67(H) 5 - 25 mg/dL LAB CHEMISTRY METHOD 05/24/2024 9:53 AM EDT [facility] Creatinine 7.92(H) 0.70 - 1.30 mg/dL LAB CHEMISTRY METHOD 05/24/2024 9:53 AM EDT [facility] eGFR 7(L) >=60 mL/min/1. 73m2 LAB CHEMISTRY METHOD 05/24/2024 9:53 AM EDT [facility] Comment:Calculation based on the??Chronic Kidney Disease Epidemiology Collaboration (CKD-EPI) equation refit??without adjustment for race. BUN/Creatinine Ratio 8.5 LAB CHEMISTRY METHOD 05/24/2024 9:53 AM EDT [facility] Calcium 8.6 8.5 - 10.5 mg/dL LAB CHEMISTRY METHOD 05/24/2024 9:53 AM EDT [facility] Blood Venous blood specimen / Unknown Venipuncture / Unknown 05/24/2024 5:56 AM EDT 05/24/2024 8:41 AM EDT us Laurence Florence MD LAB BLOOD ORDERABLES Final Resu lt [facility] [address] [place] [address], documented in this encounter Visit Diagnoses Diagnosis Chronic combined systolic (congestive) and diastolic (congestive) heart failure (CMS/HCC V24, CMS/HCC V28) Type 2 diabetes mellitus without complications (CMS/HCC V24, CMS/HCC V28) End stage renal disease (CMS/HCC V24, CMS/HCC V28) End stage renal disease documented in this encounter Care Teams In House Cra Relationship Specialty Start Date End Date Cass Turicos MD [address] [place], [place] [id number] [place] [address] PCP - General Geriatric Medicine 04/02/24 documented as of this encounter
--- OUTSIDE RECORDS SUMMARY | 2024-07-16 15:02 | XMS_ITS ---
[facility] Care Plan Created on: July 12, 2024 Beau Marie : 1955 Sex: Male Author Organization [employer]. Address [address] [place] [address] [address] [place] [address] Phone Health Concerns Health Status [facility] Health Concerns None
--- OUTSIDE RECORDS SUMMARY | 2024-07-16 15:02 | XMS_ITS | Encounter Summary ---
Author Organization [facility], Address [address] [place] [address] Phone Care Team Providers Care Junior Media Buyer Name Role Phone Jade Lewis MD Primary Care Provider [phone] Encounter Details Date Type Department Care Team (Late st Contact Info) Description 07/10/2024 Orders Only [facility] [address] [place] [address] Car Mcdonald MD [address] [place] [address] [place] [address] Social History Tobacco Use Types Packs/Day Years [...] Date/Time Associated Diagnosis Comments HD KINETICS Routine 07/10/2024 POST CHEMISTRY Routine 07/10/2024 IMMUNO CHEMISTRY Routine 07/10/2024 HEMATOLOGY Routine 07/10/2024 CHEMISTRY Routine 07/10/2024 CHEMISTRY Routine 07/10/2024 documented in this encounter Results * (ABNORMAL) HD KINETICS (07/10/2024) % Urea Reduction 63(L) 65 - 80 % [facility] 07/10/2024 07/11/2024 9:4 5 AM EDT Narrative Resulting Agency Comment Specimen source: Plasma Car Mcdonald MD LAB BLOOD ORDERABLES Final Re sult Performing Organization Address [facility] de Phone Number [employer] See order comments or contact performing lab Unknown, [place] * (ABNORMAL) POST CHEMISTRY (07/10/2024) BUN Post Dialysis 26(H) 6 - 19 mg/dL [facility] 07/10/2024 07/11/2024 9:4 5 AM EDT Narrative [facility] - 07/12/2024 Unless otherwise specified, test(s) performed at: [facility], [address] [place], [place] [id number] CASE FINISHING MACHINE ADJUSTER: Homero Garcia M.D. For any questions, please call customer service at FREQUENCY:MONTHLY Resulting Agency Comment Specimen source: Plasma Car Mcdonald MD LAB BLOOD ORDERABLES Final Re sult Performing Organization Address [facility] de Phone Number [employer] See order comments or contact performing lab Unknown, [place] * IMMUNO CHEMISTRY (07/10/2024) Hep B Surface Ag Negative Negative [facility] 07/10/2024 07/11/2024 11: 02 AM EDT Narrative Resulting Agency Comment Specimen source: Serum Car Mcdonald MD LAB BLOOD ORDERABLES Final Re sult Performing Organization Address [facility]/ZIP Co de Phone Number [facility] See order comments or contact performing lab Unknown, [place] * (ABNORMAL) [facility] Chemistry (07/10/2024) BUN 71(H) 6 - 19 mg/dL [facility] Sodium 142 136 - 145 mEq/L [facility] Potassium 5.4(H) 3.5 - 5.1 mEq/L [facility] Chloride 100 96 - 108 mEq/L [facility] Magnesium 1.6 1.6 - 2.6 mg/dL [facility] Comment: Custom Exception Creatinine 8.78(H) 0.60 - 1.30 mg/dL [facility] Comment: Verified by repeat analysis. BUN/Creatinine Ratio 8.1(L) 10.0 - 20.0 [facility] Bicarbonate (CO2) 18(L) 22 - 29 mEq/L [facility] Comment: Verified by repeat analysis. Calcium 8.6 8.4 - 10.2 mg/dL [facility] Comment: Verified by repeat analysis. Corrected Calcium 8.9 8.4 - 10.2 mg/dL [facility] Comment: Corrected Calcium is not equivalent to measured Ionized Calcium. Phosphorus 7.5(H) 2.6 - 4.5 mg/dL [facility] Comment: Verified by repeat analysis. Calcium Phosphorus Product 65(H) 0 - 54 [facility] Calcium Phosporus Product, Cor 67(H) 0 - 54 [facility] Alkaline Phosphatase 113 40 - 129 U/L [facility] Comment: Verified by repeat analysis. ALT (SGPT) 11 7 - 52 U/L [facility] Comment: Verified by repeat analysis. Albumin 3.6 3.5 - 5.2 g/dL [facility] Comment: Verified by repeat analysis. Ferritin 753(H) 22 - 322 ng/mL [facility] Iron 33(L) 45 - 160 mcg/dL [facility] Comment: Verified by repeat analysis. UIBC 126(L) 155 - 355 mcg/dL [facility] Comment: Verified by repeat analysis. TIBC 159(L) 185 - 515 mcg/dL [facility] Iron Saturation (TSat) 21 20 - 55 % [facility] 07/10/2024 07/11/2024 11: 02 AM EDT Narrative [facility] - 07/11/2024 Unless otherwise specified, test(s) performed at: [facility], [address] [place] [id number] CASE FINISHING MACHINE ADJUSTER: Homero Garcia M.D. For any questions, please call customer service at FREQUENCY:MONTHLY Resulting Agency Comment Specimen source: Serum Car Mcdonald MD LAB BLOOD ORDERABLES Edited R esult - Final Performing Organization Address [facility] Co de Phone Number [facility] See order comments or contact performing lab Unknown, [place] * (ABNORMAL) [facility] (07/10/2024) Pathologist [facility] PTH 451(H) 16 - 80 pg/mL [facility] 07/10/2024 07/11/2024 10: 05 AM EDT Narrative [facility] - 07/11/2024 Unless otherwise specified, test(s) performed at: [facility], [address] [place], [place] [id number] CASE FINISHING MACHINE ADJUSTER: Homero Garcia M.D. For any questions, please call customer service at FREQUENCY:MONTHLY Resulting Agency Comment Specimen source: Plasma Car Mcdonald MD LAB BLOOD ORDERABLES Final Re sult Performing Organization Address [facility] de Phone Number [employer] See order comments or contact performing lab Unknown, [place] * (ABNORMAL) HEMATOLOGY (07/10/2024) [facility] Hemoglobin 10.5(L) 14.0 - 18.0 g/dL [facility] Hemoglobin x 3 31.5(L) 42.0 - 54.0 % [facility] 07/10/2024 07/11/2024 9:4 9 AM EDT Narrative [facility] - 07/11/2024 Unless otherwise specified, test(s) performed at: [facility], [address] [place], [place] [id number] CASE FINISHING MACHINE ADJUSTER: Homero Garcia M.D. For any questions, please call customer service at FREQUENCY:MONTHLY Resulting Agency Comment Specimen source: Blood Car Mcdonald MD LAB BLOOD ORDERABLES Final Re sult Performing Organization Address [facility]/ZIP Co de Phone Number [facility] See order comments or contact performing lab Unknown, [place] documented in this encounter Visit Diagnoses Not on filedocumented in this encounter Care Teams Junior Media Buyer Relationship Specialty Start Date End Date Jade Lewis MD [address] [place] [address] PCP - General Internal Medicine 04/25/22 documented as of this encounter
--- OUTSIDE RECORDS SUMMARY | 2024-07-16 15:02 | XMS_ITS | Encounter Summary ---
Author Organization [facility], Address [address] [place] [address] Phone Care Team Providers Care Pan Operator Name Role Phone Jade Lewis MD Primary Care Provider [phone] Encounter Details Date Type Department Care Team (Late st Contact Info) Description 10/28/2019 Orders Only [facility] [address] [phone] [place] [address] [place] [phone] Social History Tobacco Use Types Packs/Day Years [...] on filedocumented in this encounter Care Teams Pan Operator Relationship Specialty Start Date End Date Jade Lewis MD [address] [place] [address] PCP - General Internal Medicine 04/25/22 documented as of this encounter
--- OUTSIDE RECORDS SUMMARY | 2024-07-16 15:02 | XMS_ITS | Encounter Summary ---
Author Organization [facility] Address [address] [place] [address] Care Team Providers Care Associate Manager Affiliate Marketing Name Role Phone Lainey Cody ESTUARDO Primary Care Provider [phone] Encounter Details Date Type Department Care Team ([facility] st Contact Info) Description 07/05/2024 Interim Notes [address] [phone] [place], [place] [address] [place] [address] Social History Tobacco Use Types Packs/Day Years [...] of this encounter Progress Notes * ESTUARDO Salas - 07/12/2024 5:30 PM EDTAddended by: MAUREEN SANTIZO on: 07/12/2024 05:30 PM Modules accepted: Orders * Diane Barrett [place] - 07/05/2024 8:56 AM EDT Rx form for glucerna has been faxed to [facility] [address] [place] [address] phone number [phone] Fax number [phone] Rx sent to medical records with conformation for scanned documented in this encounter Plan of Treatment Upcoming Encounters Date Type Department Care Team (Late st Contact Info) Description 08/13/2024 11:00 AM EDT Office Visit [facility] Main [address] [place] [address] Pedro Ng PharmD [address] [place] [address] documented as of this encounter Visit Diagnoses Not on filedocumented in this encounter Additional Health Concerns Assessment Noted Time PHQ-9 Depression Total Score: 16 025 9:58 AM PDT documented as of this encounter Care Teams Associate Manager Affiliate Marketing Relationship Specialty Start Date End Date Lainey Cody FNP [address] [place] [address] PCP - General Internal Medicine 12/11/23 documented as of this encounter
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
--- OUTSIDE RECORDS SUMMARY | 2024-07-16 15:02 | XMS_ITS | Encounter Summary ---
Author Organization [facility] Address [address] [place] [address] Care Team Providers Care International Coordinator Name Role Phone Cass Turcios MD Primary Care Provider [phone] Encounter Details Date Type Department Care Team (Late st Contact Info) Description 06/06/[address] [facility] [address] [facility] [place] [address] Laurence Florence MD [address] [place] [address] Cellulitis of right lower limb; End stage [...] Final Resu lt [facility] [address] [place] [address], [place] [phone] * (ABNORMAL) Complete blood count (06/06/2024 5:35 AM EDT) [facility] WBC 9.3 4.8 - 10.8 K/mcL LAB [...] Final Resu lt [facility] [address] [place] [address], [place] [phone] documented in this encounter Visit Diagnoses Diagnosis Cellulitis of right lower limb End stage renal disease (CMS/HCC V24, CMS/HCC V28) End stage renal disease documented in this encounter Care Teams International Coordinator Relationship Specialty Start Date End Date Cass Turcios MD [address] [place] [address] [address] [place] [address] PCP - General Geriatric Medicine 04/02/24 documented as of this encounter
--- OUTSIDE RECORDS SUMMARY | 2024-07-16 15:02 | XMS_ITS | Encounter Summary ---
Author Organization [facility], Address [address] [place] [address] Phone Care Team Providers Care Manager Recruitment Name Role Phone Jade Lewis MD Primary Care Provider [phone] Reason for Visit * Reason Comments Med Refill Encounter Details Date Type Department Care Team (Late st Contact Info) Description 12/24/2022 Refill [facility] [address] [place] [phone] Car Mcdonald MD [facility] [place] [address] Social History Tobacco Use Types Packs/Day Years [...] filedocumented in this encounter Care Teams Manager Recruitment Relationship Specialty Start Date End Date Jade Lewis MD [address] [place] [address] PCP - General Internal Medicine 04/25/22 documented as of this encounter
--- OUTSIDE RECORDS SUMMARY | 2024-07-16 15:02 | XMS_ITS | Encounter Summary ---
Author Organization [facility], Address [address] [place] [address] Phone Care Team Providers Care Tube Coverer Name Role Phone Jade Lewis MD Primary Care Provider [phone] Reason for Visit * Reason Comments Med Refill Encounter Details Date Type Department Care Team (Late st Contact Info) Description 05/22/2023 Refill [facility] [address] [place] [phone] Car Mcdonald MD [facility] [address] [place] [address] Social History Tobacco Use Types Packs/Day Years [...] on filedocumented in this encounter Care Teams Tube Coverer Relationship Specialty Start Date End Date Jade Lewis MD [address] [place] [address] PCP - General Internal Medicine 04/25/22 documented as of this encounter
--- OUTSIDE RECORDS SUMMARY | 2024-07-16 15:02 | XMS_ITS | Clinical Summary ---
Author Organization [facility] Address [address] [place] [address] Phone Care Team Providers Care Residential Life Director Name Role Phone Jade Lewis MD Primary Care Provider + [phone] Allergies Active Allergy Reactions Criticality Noted Date [...] FOR WHEEZING 1 Active ergocalciferol 1.25 MG (64493 UT) capsule Take 1 capsule (50,000 Units total) by mouth 1 (one) time per week 4 capsule 5 1 Active cetirizine (ZyrTEC) 10 MG tablet Take 10 mg by mouth 1 (one) time each day Active Fluticasone-Salm eterol 100-50 MCG/ACT aerosol powder [facility] - [place], [place] - [id number] - [place], [place] [phone] 60.00 Each 5 30 INHALE 1 PUFF [...] mouth daily. Prescribed by Dr. Car Mcdonald (youth advocate). 2 Active aspirin (ST ANITRA) 81 MG [...] asthma 03/31/2022 Overview (09/15/2022): 08/19/21 Eval at [facility]. Increase Advair to 100/50 F/u 6 months. 05/24/22 Eval at [facility], Dr Funez. Recommends Trelegy once daily. Plan for sleep study to assess need for CPAP. 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 Permacath for dialysis removed and a new one replaced. Will get cefazolin x 4 weeks after dialysis. Lantus decreased to 30 units. Pt to continue on Eliquis for the next few weeks until his AV fistula is ready for utilization. Abdominal pain 03/19/2021 Bacteremia 03/19/2021 Venous thrombosis 01/04/2021 Overview (01/26/2021): 12/13/20-12/19/20 Admitted to [facility] for non-occulsive thrombosis in R internal jugular vein. 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 Resolved Problems Problem [...] diabetes mellitus 06/12/2015 Overview (01/26/2021): Followed by [facility]. Last visit 06/23/15, HbA1c = 11.1%. Has diabetic nephropathy, retinopathy, and peripheral neuropathy. Switched to Novolin 70/30. Taking 23 units TID with meals, may titrate up/down depending on BG readings over the next few days. They are trying to submit PA for Lyrica. 04/27/16 F/u with Estefani Kaur, DO at [facility]. Titrate Novolog 70/30 to 22 units with breakfast, 30 units with dinner. If no improvement or if ongoing hypoglycemia will consider switchign to Levemir and Humalog; F/u 3 months 11/03/20 F/u [facility]. A1c > 12% Continue Lanuts 52 and Humalog 4-8 untsi with meals. Consider using NPH during peritoneal dialysis Encounters Date Type Department Care Team Description 07/10/2024 Orders Only [facility] [address] [address] Car Mcdonald MD 07/03/2024 Orders Only [facility] [address] [address] Car Mcdonald MD 06/26/2024 Orders Only [facility] [address] [address] Car Mcdonald MD 06/26/2024 Treatment [facility] [place], [address] [place] [address] Arely Hernández APRN End stage renal disease; Dependence on renal dialysis 06/19/2024 Orders Only [facility] [address] [address] Car Mcdonald MD 06/17/2024 Orders Only [facility] [address] [address] Car Mcdonald MD 06/12/2024 Treatment [facility] [place] [address] [place] [address] Donny Griggs MD End stage renal disease; Dependence on renal dialysis 05/01/2024 Orders Only [facility] [address] [address] Car Mcdonald MD 2024 Orders Only [facility] [address] [address] Car Mcdonald MD 2024 Treatment [facility] [place] [address] [place] [address] Arely Hernández, RUBBER GASKET INSPECTOR TRIMMER 04/24/2024 Treatment [facility] [address] [place] [address] Malcolm Taylor MD End stage renal disease; Dependence on renal dialysis 04/24/2024 Orders Only [facility] [address] [address] Car Mcdonald MD 04/22/2024 Orders Only [facility] [address] [address] Car Mcdonald MD 04/19/2024 Orders Only [facility] [address] [address] Car Mcdonald MD 04/19/2024 Treatment [facility] [place] [address] [place] [address] Arely Hernández, RUBBER GASKET INSPECTOR TRIMMER from Last 3 Months Immunizations Immunization Administration [...] at 66 Diabetes Mother Heart disease Mother [place] Stroke Mother grandfather Hypertension Sibling 1 Kidney [...] Exam 02/18/2019 Diabetes: Hemoglobin A1C 09/16/2024 025, 05/18/2024, 05/17/2024, Additional history exists Pneumococcal [...] CHEMISTRY Routine 07/10/2024 IMMUNO CHEMISTRY Routine 07/10/2024 CHEMISTRY Routine 07/10/2024 CHEMISTRY Routine 07/10/2024 HEMATOLOGY Routine 07/10/2024 HEMATOLOGY Routine 07/03/2024 HEMATOLOGY Routine 06/26/2024 HEMATOLOGY [...] 3 Months Results * (ABNORMAL) HD KINETICS (07/10/2024) Only the most recent of5 resultswithin the time period is included. % Urea Reduction 63(L) 65 - 80 % [facility] 07/10/2024 07/11/2024 9:4 5 AM EDT Narrative Resulting Agency Comment Specimen source: Plasma Car Mcdonald MD LAB BLOOD ORDERABLES Final Re sult Performing Organization Address [facility] Co de Phone Number [facility] See order comments or contact performing lab Unknown, [place] * (ABNORMAL) POST CHEMISTRY (07/10/2024) Only the most recent of5 resultswithin the time period is included. BUN Post Dialysis 26(H) 6 - 19 mg/dL [facility] 07/10/2024 07/11/2024 9:4 5 AM EDT Narrative [facility] - 07/12/2024 Unless otherwise specified, test(s) performed at: [facility], [address] [place] [address] UNLOADING CHECKER: Homero Garcia M.D. For any questions, please call customer service at FREQUENCY:MONTHLY Resulting Agency Comment Specimen source: Plasma Car Mcdonald MD LAB BLOOD ORDERABLES Final Re sult Performing Organization Address [facility] Co de Phone Number [employer] [facility] See order comments or contact performing lab Unknown, [place] * IMMUNO CHEMISTRY (07/10/2024) Only the most recent of3 resultswithin the time period is included. Hep B Surface Ag Negative Negative [facility] 07/10/2024 07/11/2024 11: 02 AM EDT Narrative Resulting Agency Comment Specimen source: Serum Car Mcdonald MD LAB BLOOD ORDERABLES Final Re sult Performing Organization Address City/[facility]/ZIP Co de Phone Number [facility] See order comments or contact performing lab Unknown, [place] * (ABNORMAL) HEMATOLOGY (07/10/2024) Only the most recent of8 resultswithin the time period is included. Hemoglobin 10.5(L) 14.0 - 18.0 g/dL [facility] Hemoglobin x 3 31.5(L) 42.0 - 54.0 % [facility] 07/10/2024 07/11/2024 9:4 9 AM EDT Narrative [facility] - 07/11/2024 Unless otherwise specified, test(s) performed at: [facility], [address] [place], [place] [id number] UNLOADING CHECKER: Homero Garcia M.D. For any questions, please call customer service at FREQUENCY:MONTHLY Resulting Agency Comment Specimen source: Blood Car Mcdonald MD LAB BLOOD ORDERABLES Final Re sult [facility] See order comments or contact performing lab Unknown, [place] * (ABNORMAL) [facility] (07/10/2024) Only the most recent of9 resultswithin the time period is included. BUN 71(H) 6 - 19 mg/dL [facility] [...] 07/11/2024 Unless otherwise specified, test(s) performed at: [place] [address] UNLOADING CHECKER: Homero Garcia M.D. For any questions, please call customer service at FREQUENCY:MONTHLY Resulting Agency Comment Specimen source: Serum Car Mcdonald MD LAB BLOOD ORDERABLES Edited R esult - Final Performing Organization Address City/[facility]/ZIP Co de Phone Number [facility] See order comments or contact performing lab Unknown, [place] * (ABNORMAL) SPECIAL CHEMISTRY (06/17/2024) Hemoglobin A1C 6.9(H) 4.8 - 5.9 % [facility] 06/17/2024 06/18/2024 8:4 3 AM EDT Narrative [facility] - 06/18/2024 Unless otherwise specified, test(s) performed at: [facility], [address] [place] [address] UNLOADING CHECKER: Homero Garcia M.D. For any questions, please [...] eNPCR 1.07 Knowledge Center spKt/V Gotch 1.12 [facility] PCR 74.63 Knowledge Center nPCR_HD 1.23 Knowledge Center eKt/V Gotch 0.85 Knowledg e Center spKt/V (Daugirdas II) 1.10 Knowledge Center WSTDKT/V 2.0 Knowledge Center 05/01/2024 05/01/2024 [facility] [place] LAB BLOOD ORDERABLES Final Result Performing Organization Address City/[facility]/ZIP Co de Phone Number [facility] Contact Performing lab Unknown, [place] from Last 3 Months [place] Care Teams Residential Life Director Relationship Specialty Start Date End Date Jade Lewis MD [address] [place] [address] PCP - General Internal Medicine 04/25/22
--- OUTSIDE RECORDS SUMMARY | 2024-07-16 15:02 | XMS_ITS | Encounter Summary ---
Author Organization [facility] Address [address] [facility] [address] [place] [address] Phone Care Team Providers Care Degree Clerk Name Role Phone Jade Lewis MD Primary Care Provider + [phone] Reason for Visit * Reason Onset Date Comments Med Refill 04/19/2022 Encounter Details Date Type Department Care Team (Late st Contact Info) Description 04/19/2022 Refill [facility] [address] [place] [phone] Loida Madsen Social History Tobacco Use Types [...] on filedocumented in this encounter Care Teams Degree Clerk Relationship Specialty Start Date End Date Jade Lewis MD [address] [place] [address] PCP - General Internal Medicine 04/25/22 documented as of this encounter
--- OUTSIDE RECORDS SUMMARY | 2024-07-16 15:02 | XMS_ITS | Encounter Summary ---
Author Organization [facility] [place], Address [address] [place] [address] Phone Care Team Providers Care Bead Maker Name Role Phone Jade Lewis MD Primary Care Provider + [phone] Reason for Visit * Reason Comments Med Refill Encounter Details Date Type Department Care Team (Late st Contact Info) Description 06/13/2023 Refill [facility] [address] [place] [phone] Malcolm Taylor MD [address] [place] [phone] Social History Tobacco Use Types Packs/Day Years [...] on filedocumented in this encounter Care Teams Bead Maker Relationship Specialty Start Date End Date Jade Lewis MD [address] [place] [address] PCP - General Internal Medicine 04/25/22 documented as of this encounter
--- OUTSIDE RECORDS SUMMARY | 2024-07-16 15:02 | XMS_ITS | Encounter Summary ---
Author Organization [facility] Address [address] [place] [address] Care Team Providers Care Real Estate Branch Manager Name Role Phone Cass Turcios MD Primary Care Provider [phone] Encounter Details Date Type Department Care Team (Late st Contact Info) Description 04/02/2024 Lab Requisition [facility] - Main Lab [address] [facility] [place] [address] Cass Turcios MD [address] [place] [address] End stage renal disease (CMS/HCC V24, CMS/HCC [...] Resul t [facility] [address] [place] [address], * (ABNORMAL) Complete blood count (04/02/2024 5:24 [...] Resul t [facility] [address] [place] [address], documented in this encounter Visit Diagnoses Diagnosis End stage renal disease (CMS/HCC V24, CMS/HCC V28) End stage renal disease documented in this encounter Care Teams Real Estate Branch Manager Relationship Specialty Start Date End Date Cass Turcios MD [address] [place] [address] [address] [place] [address] PCP - General Geriatric Medicine 04/02/24 documented as of this encounter
--- OUTSIDE RECORDS SUMMARY | 2024-07-16 15:02 | XMS_ITS | Encounter Summary ---
Author Organization [facility] Address [address] [place] [address] Care Team Providers Care Ward Nurse Name Role Phone Cass Turcios MD Primary Care Provider Encounter Details Date Type Department Care Team (Latest Contact Info) Description 05/28/2024 Lab Requisition [facility] - Main Lab [address] [facility] [place] [address] Laurence Florence MD [address] [place] [address] Anemia, unspecified; End stage renal disease (CMS/HCC [...] LAB CHEMISTRY METHOD 05/29/2024 9:20 AM EDT [facility] Blood Venous blood specimen / Unknown Venipuncture / Unknown 05/29/2024 5:09 AM EDT 05/29/2024 8:42 AM EDT us Laurence Florence MD LAB BLOOD ORDERABLES Final Resu lt [facility] [address] [place] [address], * (ABNORMAL) Complete blood count (05/29/2024 5:09 AM EDT) [facility] WBC 10.8 4.8 - 10.8 K/mcL LAB HEMETOLOGY METHOD 05/29/2024 9:01 AM EDT [facility] RBC 3.50(L) 4.50 - 5.50 M/mcL LAB HEMETOLOGY METHOD 05/29/2024 9:01 AM EDT [facility] Hemoglobin 8.2(L) 13.5 - 17.5 g/dL LAB HEMETOLOGY METHOD 05/29/2024 9:01 AM EDT [facility] Hematocrit 28.4(L) 42.0 - 54.0 % LAB HEMETOLOGY METHOD 05/29/2024 9:01 AM EDT [facility] MCV 81.8 79.0 - 98.0 FL LAB HEMETOLOGY METHOD [facility] MCH 23.6(L) 27.0 - 32.0 pcg LAB HEMETOLOGY METHOD 05/29/2024 9:01 AM [facility] MCHC 28.9(L) 32.0 - 37.0 g/dL LAB HEMETOLOGY METHOD 05/29/2024 9:01 AM [facility] RDW 18.2(H) 11.0 - 15.0 % LAB HEMETOLOGY METHOD 05/29/2024 [facility] Platelets 263 130 - 400 K/mcL LAB HEMETOLOGY METHOD 05/29/2024 9:01 AM [facility] MPV 11.2(H) 7.0 - 11.0 FL LAB HEMETOLOGY METHOD 05/29/2024 9:[facility] NRBC 0.0 <1.0 % LAB HEMETOLOGY METHOD 05/29/2024 9:01 AM [facility] NRBC Absolute 0.00 <0.10 K/mcL LAB HEMETOLOGY METHOD 05/29/2024 9:01 AM [facility] Blood Venous blood specimen / Unknown Venipuncture / Unknown 05/29/2024 5:09 AM EDT 05/29/2024 8:42 AM EDT us Laurence Florence MD LAB BLOOD ORDERABLES Final Resu lt [facility] [address] [place] [address], * (ABNORMAL) Renal function panel (05/29/2024 5:09 AM EDT) Sodium 135 133 - 145 mmol/L LAB CHEMISTRY METHOD 05/29/2024 10:03 AM T [facility] Potassium 4.7 3.5 - 5.5 mmol/L LAB CHEMISTRY METHOD 05/29/2024 10:03 AM [facility] Chloride 99 96 - 110 mmol/L LAB CHEMISTRY METHOD 05/29/2024 10:03 AM [facility] CO2 27 21 - 32 mmol/L LAB CHEMISTRY METHOD 05/29/2024 10:03 AM [facility] Anion Gap 9 3 - 11 LAB CHEMISTRY METHOD 05/29/2024 10:03 AM [facility] Glucose 22(LL) 70 - 100 mg/dL LAB CHEMISTRY METHOD 05/29/2024 10:03 AM [facility] BUN 60(H) 5 - 25 mg/dL LAB CHEMISTRY METHOD 05/29/2024 10:03 AM [facility] Creatinine 7.71(H) 0.70 - 1.30 mg/dL LAB CHEMISTRY METHOD 05/29/2024 10:03 AM [facility] eGFR 7(L) >=60 mL/min/1. 73m2 LAB CHEMISTRY METHOD 05/29/2024 10:03 AM [facility] Comment:Calculation based on the??Chronic Kidney Disease Epidemiology Collaboration (CKD-EPI) equation refit??without adjustment for race. BUN/Creatinine Ratio 7.8 LAB CHEMISTRY METHOD 05/29/2024 10:03 AM [facility] Albumin 2.4(L) 3.2 - 5.0 g/dL LAB CHEMISTRY METHOD 05/29/2024 10:03 AM [facility] Calcium 8.7 8.5 - 10.5 mg/dL LAB CHEMISTRY METHOD 05/29/2024 10:03 AM [facility] Phosphorus 4.7(H) 2.5 - 4.5 mg/dL LAB CHEMISTRY METHOD 05/29/2024 10:03 AM [facility] Blood Venous blood specimen / Unknown Venipuncture / Unknown 05/29/2024 5:09 AM EDT 05/29/2024 8:42 AM EDT us Laurence Florence MD LAB BLOOD ORDERABLES Final Resu lt [facility] [address] [place] [address], documented in this encounter Visit Diagnoses Diagnosis Anemia, unspecified End stage renal disease (CMS/HCC V24, CMS/HCC V28) End stage renal disease Unspecified asthma, uncomplicated documented in this encounter Care Teams Ward Nurse Relationship Specialty Start Date End Date Cass Turcios MD [address] [facility] [address] [place] [address] PCP - General Geriatric Medicine 04/02/24 documented as of this encounter
--- OUTSIDE RECORDS SUMMARY | 2024-07-16 15:02 | XMS_ITS | Encounter Summary ---
Author Organization [facility] [place], Address [address] [place] [address] Phone Care Team Providers Care Disease Case Manager Name Role Phone Jade Lewis MD Primary Care Provider + [phone] Reason for Visit * Reason Comments Med Refill Encounter Details Date Type Department Care Team ([facility] st Contact Info) Description 10/18/2023 Refill [facility] [address] [place] [phone] Malcolm Taylor MD [address] [place] [address] [place] [phone] Social History Tobacco Use Types Packs/Day Years [...] 10/19/2023 Unless otherwise specified, test(s) performed at: [facility], [address] [place] [address] GUEST RELATIONS RECEPTIONIST: Homero Garcia M.D. For any questions, please call customer service at FREQUENCY:OTHER Resulting Agency Comment Specimen source: Blood us Car Mcdonald MD LAB BLOOD ORDERABLES Final Re sult [facility] See order comments or contact performing lab Unknown, [place] documented in this encounter Visit Diagnoses Not on filedocumented in this encounter Care Teams Disease Case Manager Relationship Specialty Start Date End Date Jade Lewis MD [address] [place] [address] PCP - General Internal Medicine 04/25/22 documented as of this encounter
--- OUTSIDE RECORDS SUMMARY | 2024-07-16 15:02 | XMS_ITS | Encounter Summary ---
Author Organization [facility] Address [address] [place] [address] Phone Care Team Providers Care Public Health Program Manager Name Role Phone Jade Lewis MD Primary Care Provider + [phone] Reason for Visit * Reason Comments Med Refill Encounter Details Date Type Department Care Team (Late st Contact Info) Description 07/23/2021 Refill [facility] [address] [place] [phone] Alejandro Santana MD [address] [place] [phone] Social History Tobacco Use Types Packs/Day Years [...] in this encounter Care Teams Public Health Program Manager Relationship Specialty Start Date End Date Jade Lewis MD [address] [place] [address] PCP - General Internal Medicine 04/25/22 documented as of this encounter
--- OUTSIDE RECORDS SUMMARY | 2024-07-16 15:02 | XMS_ITS | Encounter Summary ---
Author Organization [facility] Address [address] [place] [address] Care Team Providers Care Metal Hardener Name Role Phone Cass Turcios MD Primary Care Provider [phone] Encounter Details Date Type Department Care Team (Late st Contact Info) Description 05/31/2024 Lab Requisition [facility] - Main Lab [address] [facility] [place] [address] Laurence Florence MD [address] [place] [address] End stage renal disease (CMS/HCC V24, CMS/HCC [...] for your loved ones. For example, child abuse worker or elderly care for an older [...] CBC auto differential (05/31/2024 6:09 AM EDT) [facility] Signature WBC 10.9(H) 4.8 - 10.8 [...] 10:13 AM [facility] Immature Granulocytes Absolute 0.07(H) 0.00 - 0.03 K/mcL LAB HEMETOLOGY METHOD 05/31/2024 10:13 AM [facility] Blood Venous blood specimen / Unknown Venipuncture / Unknown 05/31/2024 6:09 AM EDT 05/31/2024 9:24 AM EDT us Laurence Florence MD LAB BLOOD ORDERABLES Final Resu lt [facility] [address] [place] [address], * (ABNORMAL) Basic metabolic panel (05/31/2024 6:09 AM EDT) Sodium 139 133 - 145 mmol/L LAB CHEMISTRY METHOD 05/31/2024 11:03 AM [facility] Potassium 4.6 3.5 - 5.5 mmol/L LAB CHEMISTRY METHOD 05/31/2024 11:03 AM [facility] Chloride 106 96 - 110 mmol/L LAB CHEMISTRY METHOD 05/31/2024 11:03 AM [facility] CO2 27 21 - 32 mmol/L LAB CHEMISTRY METHOD 05/31/2024 11:03 AM [facility] Anion Gap 6 3 - 11 LAB CHEMISTRY METHOD 05/31/2024 11:03 AM [facility] Glucose 24(LL) 70 - 100 mg/dL LAB CHEMISTRY METHOD 05/31/2024 11:03 AM [facility] BUN 52(H) 5 - 25 mg/dL LAB CHEMISTRY METHOD 05/31/2024 11:03 AM [facility] Creatinine 7.22(H) 0.70 - 1.30 mg/dL LAB CHEMISTRY METHOD 05/31/2024 11:03 AM EDT [facility] eGFR 8(L) >=60 mL/min/1. 73m2 LAB CHEMISTRY METHOD 05/31/2024 11:03 AM EDT [facility] Comment:Calculation based on the??Chronic Kidney Disease Epidemiology Collaboration (CKD-EPI) equation refit??without adjustment for race. BUN/Creatinine Ratio 7.2 LAB CHEMISTRY METHOD 05/31/2024 11:03 AM EDT [facility] Calcium 8.2(L) 8.5 - 10.5 mg/dL LAB CHEMISTRY METHOD 05/31/2024 11:03 AM EDT [facility] Blood Venous blood specimen / Unknown Venipuncture / Unknown 05/31/2024 6:09 AM EDT 05/31/2024 9:24 AM EDT us Laurence Florence MD LAB BLOOD ORDERABLES Final Resu lt [facility] [address] [place] [address], documented in this encounter Visit Diagnoses Diagnosis End stage renal disease (CMS/HCC V24, CMS/HCC V28) End stage renal disease Anemia, unspecified documented in this encounter Care Teams Metal Hardener Relationship Specialty Start Date End Date Cass Turcios MD [address] [place] [address] [address] [place] [address] PCP - General Geriatric Medicine 04/02/24 documented as of this encounter
--- OUTSIDE RECORDS SUMMARY | 2024-07-16 15:02 | XMS_ITS | Encounter Summary ---
Author Organization [facility], Address [address] [place] [address] Phone Care Team Providers Care Shuttle Preparation Supervisor Name Role Phone Jade Lewis MD Primary Care Provider + [phone] Reason for Visit * Reason Comments Med Refill Encounter Details Date Type Department Care Team (Late st Contact Info) Description 04/27/2019 [facility]ill [facility] [address] [place] [address] Mercedes Law MD Social History [...] on filedocumented in this encounter Care Teams Shuttle Preparation Supervisor Relationship Specialty Start Date End Date Jade Lewis MD [address] [place], [place] [phone] PCP - General Internal Medicine 04/25/22 documented as of this encounter
--- OUTSIDE RECORDS SUMMARY | 2024-07-16 15:02 | XMS_ITS | Encounter Summary ---
Author Organization [facility], Address [address] [place] [address] Phone Care Team Providers Care Welding Machine Tender Name Role Phone Jade Lewis MD Primary Care Provider [phone] Reason for Visit * Reason Comments Med Refill Encounter Details Date Type Department Care Team (Late st Contact Info) Description 10/27/2023 Refill [facility] [address] [place] [phone] Malcolm Taylor MD [address] [place] [address] [place] [address] Social History Tobacco Use Types Packs/Day Years [...] on filedocumented in this encounter Care Teams Welding Machine Tender Relationship Specialty Start Date End Date Jade Lewis MD [address] [place] [address] PCP - General Internal Medicine 04/25/22 documented as of this encounter
--- OUTSIDE RECORDS SUMMARY | 2024-07-16 15:02 | XMS_ITS | Encounter Summary ---
Author Organization [facility] Address [address] [place] [address] Phone Care Team Providers Care Athletic Team Physician Name Role Phone Jade Lewis MD Primary Care Provider + [phone] Reason for Visit * Reason Comments Med Refill Encounter Details Date Type Department Care Team (Late st Contact Info) Description 04/30/2021 Refill [facility] [address] [place] [phone] Alejandro Santana MD [address] [place] [phone] Social History Tobacco Use Types Packs/Day Years [...] on filedocumented in this encounter Care Teams Athletic Team Physician Relationship Specialty Start Date End Date Jade Lewis MD [address] [place] [address] PCP - General Internal Medicine 04/25/22 documented as of this encounter
--- OUTSIDE RECORDS SUMMARY | 2024-07-16 15:02 | XMS_ITS | Encounter Summary ---
Author Organization [facility], Address [address] [place] [address] Phone Care Team Providers Care Water Quality Analyst Name Role Phone Jade Lewis MD Primary Care Provider + [phone] Reason for Visit * Reason Comments Med Refill Encounter Details Date Type Department Care Team ([facility] st Contact Info) Description 06/25/2019 Refill [facility] [address] [place] [address] Mercedes Law MD Social History [...] filedocumented in this encounter Care Teams Water Quality Analyst Relationship Specialty Start Date End Date Jade Lewis MD [address] [place], [place] [phone] PCP - General Internal Medicine 04/25/22 documented as of this encounter
--- OUTSIDE RECORDS SUMMARY | 2024-07-16 15:03 | XMS_ITS | Encounter Summary ---
Author Organization [facility] Address [address] [place] [address] Care Team Providers Care Donkey Ride Operator Name Role Phone Cass Turcios MD Primary Care Provider [phone] Encounter Details Date Type Department Care Team (Late st Contact Info) Description 05/20/2024 Lab Requisition [facility] - Main Lab [address] [facility] [place] [address] Laurence Florence MD [address] [place] [address] Elevated white blood cell count, unspecified Social [...] loved ones. For example, child day care teacher or elderly care for an [...] mmol/L LAB CHEMISTRY METHOD 05/20/2024 1:59 PM [facility] Potassium 5.8(H) 3.5 - 5.5 mmol/L LAB CHEMISTRY METHOD 05/20/2024 1:59 PM [facility] Chloride 100 96 - 110 mmol/L LAB CHEMISTRY METHOD 05/20/2024 1:59 PM [facility] CO2 26 21 - 32 mmol/L LAB CHEMISTRY METHOD 05/20/2024 1:59 PM [facility] Anion Gap 12(H) 3 - 11 LAB CHEMISTRY METHOD 05/20/2024 1:59 PM [facility] Glucose 130(H) 70 - 100 mg/dL LAB CHEMISTRY METHOD 05/20/2024 1:59 PM [facility] BUN 76(H) 5 - 25 mg/dL LAB CHEMISTRY METHOD 05/20/2024 1:59 PM [facility] Creatinine 9.66(H) 0.70 - 1.30 mg/dL LAB CHEMISTRY METHOD 05/20/2024 1:59 PM [facility] eGFR 5(L) >=60 mL/min/1. 73m2 LAB CHEMISTRY METHOD 05/20/2024 1:59 PM [facility] Comment:Calculation based on the??Chronic Kidney Disease Epidemiology Collaboration (CKD-EPI) equation refit??without adjustment for race. BUN/Creatinine Ratio 7.9 LAB CHEMISTRY METHOD 05/20/2024 1:59 PM [facility] Calcium 9.2 8.5 - 10.5 mg/dL LAB CHEMISTRY METHOD 05/20/2024 1:59 PM [facility] AST (SGOT) 9(L) 10 - 42 unit/L LAB CHEMISTRY METHOD 05/20/2024 1:59 PM [facility] ALT (SGPT) 14 10 - 60 unit/L LAB CHEMISTRY METHOD 05/20/2024 1:59 PM EDT [facility] Alkaline Phosphatase 142(H) 42 - 121 unit/L LAB CHEMISTRY METHOD 05/20/2024 1:59 PM EDT [facility] Total Protein 6.1 6.0 - 8.0 g/dL LAB CHEMISTRY METHOD 05/20/2024 1:59 PM EDT [facility] Albumin 2.5(L) 3.2 - 5.0 g/dL LAB CHEMISTRY METHOD 05/20/2024 1:59 PM EDT [facility] Total Bilirubin 0.4 0.0 - 1.4 mg/dL LAB CHEMISTRY METHOD 05/20/2024 1:59 PM EDT [facility] Blood Venous blood specimen / Unknown Venipuncture / Unknown 05/20/2024 6:04 AM EDT 05/20/2024 11:40 AM EDT us Laurence Florence MD LAB BLOOD ORDERABLES Final Resu lt [facility] [address] [place] [address], * (ABNORMAL) Complete blood count (05/20/2024 6:04 AM EDT) WBC 15.6(H) 4.8 - 10.8 K/mcL LAB HEMETOLOGY METHOD 05/20/2024 1:18 PM EDT [facility] RBC 3.50(L) 4.50 - 5.50 M/mcL LAB HEMETOLOGY METHOD 05/20/2024 1:18 PM EDT [facility] Hemoglobin 8.6(L) 13.5 - 17.5 g/dL LAB HEMETOLOGY METHOD 05/20/2024 1:18 PM EDT [facility] Hematocrit 29.0(L) 42.0 - 54.0 % LAB HEMETOLOGY METHOD 05/20/2024 1:18 PM EDT [facility] MCV 82.9 79.0 - 98.0 FL LAB HEMETOLOGY METHOD 05/20/2024 1:18 PM EDT [facility] MCH 24.6(L) 27.0 - 32.0 pcg LAB HEMETOLOGY METHOD 05/20/2024 1:18 PM EDT [facility] MCHC 29.7(L) 32.0 - 37.0 g/dL LAB HEMETOLOGY METHOD 05/20/2024 1:18 PM EDT [facility] RDW 19.1(H) 11.0 - 15.0 % LAB HEMETOLOGY METHOD 05/20/2024 1:18 PM EDT [facility] Platelets 479(H) 130 - 400 K/mcL LAB HEMETOLOGY METHOD 05/20/2024 1:18 PM EDT [facility] MPV 11.3(H) 7.0 - 11.0 FL LAB HEMETOLOGY METHOD 05/20/2024 1:18 PM EDT [facility] NRBC 0.0 <1.0 % LAB HEMETOLOGY METHOD 05/20/2024 1:18 PM EDT [facility] NRBC Absolute 0.00 <0.10 K/mcL LAB HEMETOLOGY METHOD 05/20/2024 1:18 PM EDT [facility] Blood Venous blood specimen / Unknown Venipuncture / Unknown 05/20/2024 6:04 AM EDT 05/20/2024 11:40 AM EDT us Laurence Florence MD LAB BLOOD ORDERABLES Final Resu lt [facility] [address] [place] [address], documented in this encounter Visit Diagnoses Diagnosis Elevated white blood cell count, unspecified documented in this encounter Care Teams Donkey Ride Operator Relationship Specialty Start Date End Date Cass Turcios MD [address] [place] [address] [address] [place] [address] PCP - General Geriatric Medicine 04/02/24 documented as of this encounter
--- OUTSIDE RECORDS SUMMARY | 2024-07-16 15:03 | XMS_ITS | Encounter Summary ---
Author Organization [facility], Address [address] [place] [address] Phone Care Team Providers Care Drain Layer Name Role Phone Jade Lewis MD Primary Care Provider [phone] Reason for Visit * Reason Comments Med Refill Encounter Details Date Type Department Care Team (Late st Contact Info) Description 09/17/2022 Refill [facility] [address] [place] [phone] Malcolm Taylor MD [address] [place] [address] [place] [address] Social History Tobacco Use Types Packs/Day Years [...] on filedocumented in this encounter Care Teams Drain Layer Relationship Specialty Start Date End Date Jade Lewis MD [address] [place] [address] PCP - General Internal Medicine 04/25/22 documented as of this encounter
--- OUTSIDE RECORDS SUMMARY | 2024-07-16 15:03 | XMS_ITS | Encounter Summary ---
Author Organization [facility] Address [address] [place] [address] Care Team Providers Care Auxiliary Plant Operator Name Role Phone Cass Turcios MD Primary Care Provider [phone] Encounter Details Date Type Department Care Team (Latest Contact Info) Description 05/17/2024 Lab Requisition [facility] - Main Lab [address] [facility] [place] [address] Laurence Florence MD [address] [place] [address] Type 2 diabetes mellitus without complications (CMS/HCC [...] care for your loved ones. For example, assistant child care teacher or elderly care for an [...] EDT Type 2 diabetes mellitus without complications ([facility]/HCC) End stage renal disease ([facility]) HEMOGLOBIN A1C Routine 05/17/2024 5:37 AM EDT Type 2 diabetes mellitus without complications (CMS/HCC) End stage renal disease ([facility]/HCC) BASIC METABOLIC PANEL Routine 05/17/2024 5:37 AM EDT Type 2 diabetes mellitus without complications ([facility]/HCC) End stage renal disease ([facility]/HCC) documented in this encounter Results * (ABNORMAL) Basic metabolic panel (05/17/2024 5:37 AM EDT) Sodium 135 133 - 145 mmol/L LAB CHEMISTRY METHOD 05/17/2024 11:32 AM [facility] Potassium 5.5 3.5 - 5.5 mmol/L LAB CHEMISTRY METHOD 05/17/2024 11:32 AM [facility] Chloride 95(L) 96 - 110 mmol/L LAB CHEMISTRY METHOD 05/17/2024 11:32 AM [facility] CO2 29 21 - 32 mmol/L LAB CHEMISTRY METHOD 05/17/2024 11:32 AM [facility] Anion Gap 11 3 - 11 LAB CHEMISTRY METHOD 05/17/2024 11:32 AM [facility] Glucose 173(H) 70 - 100 mg/dL LAB CHEMISTRY METHOD 05/17/2024 11:32 AM [facility] BUN 52(H) 5 - 25 mg/dL LAB CHEMISTRY METHOD 05/17/2024 11:32 AM [facility] Creatinine 7.48(H) 0.70 - 1.30 mg/dL LAB CHEMISTRY METHOD 05/17/2024 11:32 AM [facility] eGFR 7(L) >=60 mL/min/1. 73m2 LAB CHEMISTRY METHOD 05/17/2024 11:32 AM [facility] Comment:Calculation based on the??Chronic Kidney Disease Epidemiology Collaboration (CKD-EPI) equation refit??without adjustment for race. BUN/Creatinine Ratio 7.0 LAB CHEMISTRY METHOD 05/17/2024 11:32 AM EDT [facility] Calcium 9.0 8.5 - 10.5 mg/dL LAB CHEMISTRY METHOD 05/17/2024 11:32 AM EDT [facility] Blood Venous blood specimen / Unknown Venipuncture / Unknown 05/17/2024 5:37 AM EDT 05/17/2024 9:43 AM EDT us Laurence Florence MD LAB BLOOD ORDERABLES Final Resu lt Performing Organization Address [facility] de Phone Number [facility] [address] [place] [address], [place] [phone] * (ABNORMAL) Hemoglobin A1c (05/17/2024 5:37 AM EDT) Hemoglobin A1C 7.1(H) <6.5 % LAB CHEMISTRY METHOD 05/17/2024 1:30 PM EDT [facility] Mean Bld Glu Estim. 157 mg/dL LAB CHEMISTRY METHOD 05/17/2024 1:30 PM EDT [facility] Blood Venous blood specimen / Unknown Venipuncture / Unknown 05/17/2024 5:37 AM EDT 05/17/2024 9:43 AM EDT us Laurence Florence MD LAB BLOOD ORDERABLES Final Resu lt Performing Organization Address City/[facility]/ZIP Co de Phone Number [facility] [address] [place] [address], [place] [phone] * (ABNORMAL) Complete blood count (05/17/2024 5:37 AM EDT) WBC 16.6(H) 4.8 - 10.8 K/[facility] HEMETOLOGY METHOD 05/17/2024 10:40 AM EDT [facility] RBC 3.70(L) 4.50 - 5.50 M/[facility] HEMETOLOGY METHOD 05/17/2024 10:40 AM [facility] Hemoglobin 8.9(L) 13.5 - 17.5 g/dL LAB HEMETOLOGY METHOD 05/17/2024 10:40 AM [facility] Hematocrit 30.1(L) 42.0 - 54.0 % LAB HEMETOLOGY METHOD 05/17/2024 10:40 AM [facility] MCV 82.5 79.0 - 98.0 FL LAB HEMETOLOGY METHOD 05/17/2024 10:40 AM [facility] MCH 24.4(L) 27.0 - 32.0 pcg LAB HEMETOLOGY METHOD 05/17/2024 10:40 AM [facility] MCHC 29.6(L) 32.0 - 37.0 g/dL LAB HEMETOLOGY METHOD 05/17/2024 10:40 AM [facility] RDW 18.3(H) 11.0 - 15.0 % LAB HEMETOLOGY METHOD 05/17/2024 10:40 AM [facility] Platelets 431(H) 130 - 400 K/mcL LAB HEMETOLOGY METHOD 05/17/2024 10:40 AM [facility] MPV 10.6 7.0 - 11.0 FL LAB HEMETOLOGY METHOD 05/17/2024 10:40 AM [facility] NRBC 0.0 <1.0 % LAB HEMETOLOGY METHOD 05/17/2024 10:40 AM [facility] NRBC Absolute 0.00 <0.10 K/mcL LAB HEMETOLOGY METHOD 05/17/2024 10:40 AM [facility] Blood Venous blood specimen / Unknown Venipuncture / Unknown 05/17/2024 5:37 AM EDT 05/17/2024 9:43 AM EDT us Laurence Florence MD LAB BLOOD ORDERABLES Final Resu lt [facility] [address] [place] [address], documented in this encounter Visit Diagnoses Diagnosis Type 2 diabetes mellitus without complications ([facility] V24, [facility] V28[facility] End stage renal disease ([facility] V24, [facility] V28) End stage renal disease documented in this encounter Care Teams Auxiliary Plant Operator Relationship Specialty Start Date End Date Cass Turcios MD [address] [facility] [address] [place] [address] PCP - General Geriatric Medicine 04/02/24 documented as of this encounter
--- OUTSIDE RECORDS SUMMARY | 2024-07-16 15:03 | XMS_ITS | Encounter Summary ---
Author Organization [facility] Address [address] [place] [address] Care Team Providers Care Production Control Pegboard Clerk Name Role Phone Cass Turcios MD Primary Care Provider [phone] Encounter Details Date Type Department Care Team (Late st Contact Info) Description 05/30/2024 Lab Requisition [facility] - Main Lab 299 [facility] [place] [address] Laurence Florence MD [address] [place] [address] Chronic respiratory failure with hypoxia (CMS/HCC V24, [...] your loved ones. For example, child care coordinator or elderly care for an older adult? [...] us Laurence Florence MD LAB MICROBIOLOGY - [facility] MALAIKA HURD Final Result [facility] [address] [place] [address], documented in this encounter Visit Diagnoses Diagnosis Chronic respiratory failure with hypoxia (CMS/HCC V24, CMS/HCC V28) Encounter for orthopedic aftercare following surgical amputation Encounter for surgical aftercare following surgery on the circulatory system Peripheral vascular disease, unspecified ([facility] V24) Peripheral vascular disease, unspecified documented in this encounter Care Teams Production Control Pegboard Clerk Relationship Specialty Start Date End Date Cass Turcios MD [address] [place] [address] [address] [place] [address] PCP - General Geriatric Medicine 04/02/24 documented as of this encounter
--- OUTSIDE RECORDS SUMMARY | 2024-07-16 15:03 | XMS_ITS | Encounter Summary ---
Author Organization [facility], Address [address] [place] [address] Phone Care Team Providers Care Location Manager Name Role Phone Jade Lewis MD Primary Care Provider + [phone] Reason for Visit * Reason Comments Med Refill Encounter Details Date Type Department Care Team ([facility] st Contact Info) Description 10/28/2020 Refill [facility] [place] [address] [place] [phone] Alejandro Santana MD [address] [place] [phone] Social History Tobacco Use Types Packs/Day Years [...] on filedocumented in this encounter Care Teams Location Manager Relationship Specialty Start Date End Date Jade Lewis MD [address] [place] [address] PCP - General Internal Medicine 04/25/22 documented as of this encounter
--- OUTSIDE RECORDS SUMMARY | 2024-07-16 15:03 | XMS_ITS | Encounter Summary ---
Author Organization [facility] Address [address] [place] [address] Care Team Providers Care Switch Technician Name Role Phone Cass Turcios MD Primary Care Provider [phone] Encounter Details Date Type Department Care Team (Late st Contact Info) Description 05/18/2024 Lab Requisition [facility] - Main Lab [address] [facility] [place] [address] Elsy Christina PA [address] [facility] [address] [place] [address] Unspecified systolic (congestive) heart failure ([facility] V24, CMS/HCC V28); Type 2 diabetes mellitus without complications (CMS/HCC V24, CMS/HCC V28); End stage renal disease (CMS/HCC V24, [facility] V28) Social History Tobacco Use [...] AM EDT Unspecified systolic (congestive) heart failure ([facility]/HCC) Type 2 diabetes mellitus without [...] LAB HEMETOLOGY METHOD 05/18/2024 10:27 AM EDT [facility] Lymphocytes Absolute 2.30 1.00 - 5.00 K/[facility] LAB HEMETOLOGY METHOD 05/18/2024 10:27 AM EDT [facility] Monocytes Absolute 0.87 0.20 - 1.00 K/[facility] LAB HEMETOLOGY METHOD 05/18/2024 10:27 AM EDT [facility] Eosinophils Absolute 0.37 0.00 - 0.50 K/[facility] LAB HEMETOLOGY METHOD 05/18/2024 10:27 AM EDT [facility] Basophils Absolute 0.04 0.00 - 0.20 K/[facility] LAB HEMETOLOGY METHOD 05/18/2024 10:27 AM EDT [facility] Immature Granulocytes Absolute 0.09(H) 0.00 - 0.03 K/[facility] LAB HEMETOLOGY METHOD 05/18/2024 10:27 AM EDT [facility] Blood Venous blood specimen / Unknown Venipuncture / Unknown 05/18/2024 7:20 AM EDT 05/18/2024 9:58 AM EDT us Elsy MONTERO LAB BLOOD ORDERABLES Final Re sult [facility] [address] [place] [address], * (ABNORMAL) Hemoglobin A1c (05/18/2024 7:20 AM EDT) Hemoglobin A1C 7.2(H) <6.5 % LAB CHEMISTRY METHOD 05/19/2024 12:06 PM EDT [facility] Mean Bld Glu Estim. 160 mg/dL LAB CHEMISTRY METHOD 05/19/2024 12:06 PM EDT [facility] Blood Venous blood specimen / Unknown Venipuncture / Unknown 05/18/2024 7:20 AM EDT 05/18/2024 9:58 AM EDT us Elsy MONTERO LAB BLOOD ORDERABLES Final Re sult [facility] [address] [place] [address], [place] [phone] * (ABNORMAL) Basic metabolic panel (05/18/2024 7:20 [...] LAB CHEMISTRY METHOD 05/18/2024 10:41 AM EDT [facility] Blood Venous blood specimen / Unknown Venipuncture / Unknown 05/18/2024 7:20 AM EDT 05/18/2024 9:58 AM EDT us Elsy MONTERO LAB BLOOD ORDERABLES Final Re sult [facility] [address] [place] [address], documented in this encounter Visit Diagnoses Diagnosis Unspecified systolic (congestive) heart failure ([facility] V24, [facility] V28) Type 2 diabetes mellitus without complications ([facility] V24, [facility] V28) End stage renal disease ([facility] V24, [facility] V28) End stage renal disease documented in this encounter Care Teams Switch Technician Relationship Specialty Start Date End Date Cass Turcios MD [address] [place] [address] [address] [place] [address] PCP - General Geriatric Medicine 04/02/24 documented as of this encounter
--- OUTSIDE RECORDS SUMMARY | 2024-07-16 15:03 | XMS_ITS | Encounter Summary ---
Author Organization [facility] Address [address] [place] [address] Care Team Providers Care Ship'S Officer Name Role Phone Cass Turcios MD Primary Care Provider [phone] Encounter Details Date Type Department Care Team (Late st Contact Info) Description 05/30/2024 Lab Requisition [facility] - Main Lab [address] [facility] [place] [address] Laurence Florence MD [address] [place] [address] Chronic respiratory failure with hypoxia (CMS/HCC V24, [...] your loved ones. For example, child development professor or elderly care for an older adult? [...] Final Result [facility] [address] [place] [address], [place] [phone] * Lactate (05/30/2024 7:36 AM EDT) [facility] Lactate 0.6 0.4 - 2.0 mmol/L LAB CHEMISTRY METHOD 05/30/2024 8:47 AM EDT [facility] Blood Venous blood specimen / Unknown Venipuncture / Unknown 05/30/2024 7:36 AM EDT 05/30/2024 8:11 AM EDT us Laurence Florence MD LAB BLOOD ORDERABLES Final Resu lt [facility] [address] [place] [address], [place] [phone] * (ABNORMAL) C-reactive protein (05/30/2024 7:36 AM EDT) [facility] C-Reactive Protein 11.60(H) <=0.50 mg/dL LAB CHEMISTRY METHOD 05/30/2024 8:51 AM EDT [facility] Blood Venous blood specimen / Unknown Venipuncture / Unknown 05/30/2024 7:36 AM EDT 05/30/2024 8:11 AM EDT us Laurence Florence MD LAB BLOOD ORDERABLES Final Resu lt [facility] [address] [place] [address], [place] [phone] * (ABNORMAL) Sedimentation rate (05/30/2024 7:36 AM EDT) [facility] Sed Rate >130(H) 0 - 20 mm/hr LAB HEMETOLOGY METHOD 05/30/2024 8:57 AM EDT [facility] Blood Venous blood specimen / Unknown Venipuncture / Unknown 05/30/2024 7:36 AM EDT 05/30/2024 8:11 AM EDT Narrative [facility] - 05/30/2024 8:57 AM EDT Rechecked. us Laurence Florence MD LAB BLOOD ORDERABLES Final Resu lt [facility] [address] [place] [address], [place] [phone] * (ABNORMAL) Comprehensive metabolic panel (05/30/2024 7:36 [...] Resu lt [facility] [address] [place] [address], * (ABNORMAL) Complete blood count (05/30/2024 7:36 [...] MD LAB BLOOD ORDERABLES Final Resu lt [facility] [address] [place] [address], documented in this encounter Visit Diagnoses Diagnosis Chronic respiratory failure with hypoxia (CMS/[facility] V24, CMS/[facility] V28) Encounter for orthopedic aftercare following surgical amputation Encounter for surgical aftercare following surgery on the circulatory system Peripheral vascular disease, unspecified ([facility] V24) Peripheral vascular disease, unspecified documented in this encounter Care Teams Ship'S Officer Relationship Specialty Start Date End Date Cass Turcios MD [address] [place] [address] [address] [place] [address] PCP - General Geriatric Medicine 04/02/24 documented as of this encounter
--- OUTSIDE RECORDS SUMMARY | 2024-07-16 15:03 | XMS_ITS | Encounter Summary ---
Author Organization [facility], Address [address] [place] [address] Phone Care Team Providers Care Editor Sound Name Role Phone Jade Lewis MD Primary Care Provider + [phone] Reason for Visit * Reason Comments Med Refill Encounter Details Date Type Department Care Team ([facility] st Contact Info) Description 11/27/2020 Refill [facility] [address] [place] [phone] Alejandro Santana MD [address] [place] [phone] Social History Tobacco Use Types Packs/Day Years [...] on filedocumented in this encounter Care Teams Editor Sound Relationship Specialty Start Date End Date Jade Lewis MD [address] [place] [address] PCP - General Internal Medicine 04/25/22 documented as of this encounter
--- OUTSIDE RECORDS SUMMARY | 2024-07-16 15:03 | XMS_ITS | Encounter Summary ---
Author Organization [facility] Address [address] [place] [address] Care Team Providers Care Supervisor Sound Technician Name Role Phone Cass Turcios MD Primary Care Provider [phone] Encounter Details Date Type Department Care Team (Late st Contact Info) Description 05/21/[address] [facility] - Main Lab 299 [facility] [place] [address] Laurence Florence MD [address] [place] [address] Chronic combined systolic (congestive) and diastolic (congestive) [...] CBC auto differential (05/21/2024 5:40 AM EDT) [facility] WBC 14.4(H) 4.8 - 10.8 K/mcL LAB HEMETOLOGY METHOD 05/21/2024 12:49 PM [facility] RBC 3.80(L) 4.50 - 5.50 M/mcL LAB HEMETOLOGY METHOD 05/21/2024 12:49 PM [facility] Hemoglobin 9.5(L) 13.5 - 17.5 g/dL LAB HEMETOLOGY METHOD 05/21/2024 12:49 PM [facility] Hematocrit 33.1(L) 42.0 - 54.0 % LAB HEMETOLOGY METHOD 05/21/2024 12:49 PM [facility] MCV 87.1 79.0 - 98.0 FL LAB HEMETOLOGY METHOD 05/21/2024 12:49 PM [facility] MCH 25.0(L) 27.0 - 32.0 pcg LAB HEMETOLOGY METHOD 05/21/2024 12:49 PM [facility] MCHC 28.7(L) 32.0 - 37.0 g/dL LAB HEMETOLOGY METHOD 05/21/2024 12:49 PM [facility] RDW 19.6(H) 11.0 - 15.0 % LAB HEMETOLOGY METHOD 05/21/2024 12:49 PM [facility] Platelets 447(H) 130 - 400 K/mcL LAB HEMETOLOGY METHOD 05/21/2024 12:49 PM EDT [facility] MPV 11.3(H) 7.0 - 11.0 FL LAB HEMETOLOGY METHOD 05/21[facility]2024 12[facility]49 [facility] NRBC 0.0 <1.0 % LAB HEMETOLOGY METHOD 05/21/2024 12:49 [facility] NRBC Absolute 0.00 <0.10 K/mcL LAB HEMETOLOGY METHOD 05/21/2024 12:49 PM [facility] Neutrophils Relative 76.8 % LAB HEMETOLOGY METHOD 05/21/2024 12:49 PM [facility] Lymphocytes Relative 13.0 % LAB HEMETOLOGY METHOD 05/21/2024 12:49 PM [facility] Monocytes Relative 7.0 % LAB HEMETOLOGY METHOD 05/21/2024 12:49 PM [facility] Eosinophils Relative 2.0 % LAB HEMETOLOGY METHOD 05/21/2024 12:49 PM [facility] Basophils Relative 0.4 % LAB HEMETOLOGY METHOD 05/21/2024 12:49 PM [facility] Immature Granulocytes Relative 0.8 % LAB HEMETOLOGY METHOD 05/21/2024 12:49 PM [facility] Neutrophils Absolute 11.05(H) 1.50 - 7.00 K/mcL LAB HEMETOLOGY METHOD 05/21/2024 12:49 [facility] Lymphocytes Absolute 1.87 1.00 - 5.00 K/mcL LAB HEMETOLOGY METHOD 05/21/2024 12:49 PM [facility] Monocytes Absolute 1.00 0.20 - 1.00 K/mcL LAB HEMETOLOGY METHOD 05/21/2024 12:49 PM EDT [facility] Eosinophils Absolute 0.29 0.00 - 0.50 K/[facility] LAB HEMETOLOGY METHOD 05/21/2024 12:49 PM EDT [facility] Basophils Absolute 0.06 0.00 - 0.20 K/mcL LAB HEMETOLOGY METHOD 05/21/2024 12:49 PM EDT [facility] Immature Granulocytes Absolute 0.11(H) 0.00 - 0.03 K/[facility] LAB HEMETOLOGY METHOD 05/21/2024 12:49 PM EDT [facility] Blood Venous blood specimen / Unknown Venipuncture / Unknown 05/21/2024 5:40 AM EDT 05/21/2024 11:19 AM EDT us Laurence Florence MD LAB BLOOD ORDERABLES Final Resu lt [facility] [address] [place] [address], [place] [phone] * (ABNORMAL) Basic metabolic panel (05/21/2024 5:40 AM EDT) Sodium 137 133 - 145 mmol/L LAB CHEMISTRY METHOD 05/21/2024 2:38 PM [facility] Potassium 5.3 3.5 - 5.5 mmol/L LAB CHEMISTRY METHOD 05/21/2024 2:38 PM T [facility] Comment:Hemolysis present Chloride 99 96 - 110 mmol/L LAB CHEMISTRY METHOD 05/21/2024 2:38 PM [facility] CO2 27 21 - 32 mmol/L LAB CHEMISTRY METHOD 05/21/2024 2:38 PM [facility] Anion Gap 11 3 - 11 LAB CHEMISTRY METHOD 05/21/2024 2:38 PM [facility] Glucose 76 70 - 100 mg/dL LAB CHEMISTRY METHOD 05/21/2024 2:38 PM EDT [facility] BUN 58(H) 5 - 25 mg/dL LAB CHEMISTRY METHOD 05/21/2024 2:38 PM EDT [facility] Creatinine 7.10(H) 0.70 - 1.30 mg/dL LAB CHEMISTRY METHOD 05/21/2024 2:38 PM EDT [facility] eGFR 8(L) >=60 mL/min/1. 73m2 LAB CHEMISTRY METHOD 05/21/2024 2:38 PM EDT [facility] Comment:Calculation based on the??Chronic Kidney Disease Epidemiology Collaboration (CKD-EPI) equation refit??without adjustment for race. BUN/Creatinine Ratio 8.2 LAB CHEMISTRY METHOD 05/21/2024 2:38 PM EDT [facility] Calcium 8.6 8.5 - 10.5 mg/dL LAB CHEMISTRY METHOD 05/21/2024 2:38 PM EDT [facility] Blood Venous blood specimen / Unknown Venipuncture / Unknown 05/21/2024 5:40 AM EDT 05/21/2024 11:19 AM EDT us Laurence Florence MD LAB BLOOD ORDERABLES Final Resu lt [facility] [address] [place] [address], documented in this encounter Visit Diagnoses Diagnosis Chronic combined systolic (congestive) and diastolic (congestive) heart failure (CMS/HCC V24, CMS/HCC V28) End stage renal disease (CMS/HCC V24, CMS/HCC V28) End stage renal disease documented in this encounter Care Teams Supervisor Sound Technician Relationship Specialty Start Date End Date Cass Turcios MD [address] [place] [address] [address] [place] [address] PCP - General Geriatric Medicine 04/02/24 documented as of this encounter
== END 2024-07-16 16:07 | disposition home or self-care (01) ==
LOC: HO.HVS 13:52
PROVIDERS: Visit Provider Surgery Vascular Surgery
DX: T87.9 Unspecified complications of amputation stump (principal)
CPT/HCPCS: 99024

== ENCOUNTER 2024-07-16 15:01 | Outpatient (AMB) | payer MEDICARE, MEDICAID, SELFPAY ==
--- NOTE | 2024-07-16 15:27 | A.OFFVIS_ITS ---
Intake Visit Reasons: OV- Left MF necrosis/pain-Limited ROM Intake Note: Beau 69 yr old male presents today with his son Nestor for a follow up visit for his left necrosis of his middle finger. States about 1 week ago his pain increase and swelling. States he has been washing his hands with soap and water daily. Currently stats his pain has improved and is doing better. States his finger is growing health skin and he is now able to bend at his PIP. Allergies Iodinated Contrast Media [Contrast Dye] Allergy (Severe, Verified 07/16/24 15:34) Facial Swelling hydralazine Adverse Reaction (Severe, Verified 07/16/24 15:34) vasculitis HPI HPI OV- Left MF necrosis/pain-Limited ROM: Details: Beau is a 69 year old right hand dominant Diabetic Uzbek speaking man, here with his son acting as a journeyman operator assistant, for a follow up of his right middle finger necrosis. He resides in a rehab center at this time. He complains of pain & limited use of his right index & middle fingers for ~6 months now. He says this was much worse ~1-2 weeks ago, but has improved in the last few days. He feels his fingertips are drying up . He also says he has no sensation in these fingers. 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 Cannon. He continues to follow with vascular for wound care of his AKA. He says he continues to have drainage from his surgical site, but feels this is improving. He has ESRD, CHF, PVD, and Diabetes. He is on Dialysis 3x weekly. He is a Diabetic, which is poorly controlled. He has not had a recent HgA1c checked but his daily sugars range from ~90's-150's on average. [facility] Medical History Type 2 diabetes mellitus Dry gangrene PVD (peripheral vascular disease) ESRD needing dialysis Above knee amputation of right lower extremity Left ventricular systolic dysfunction (LVSD) Postop check Acute pericardial effusion Right sided weakness Dehiscence of wound Peripheral arterial disease Cellulitis of right foot Hypertension HFrEF (heart failure with reduced ejection fraction) ESRD (end stage renal disease) Chronic combined systolic and diastolic CHF (congestive heart failure) Chronic pericardial effusion Arthritis Asthma Restless leg syndrome Acute on chronic systolic and diastolic heart failure, NYHA class 3 Anemia ESRD (end stage renal disease) Occlusive thrombus Pulmonary edema ROBERT (obstructive sleep apnea) Hyperlipidemia Hypertension A-V fistula ESRD on dialysis Falling Surgical History Status post creation of pericardial window Postop check Hx of right BKA Status post transmetatarsal amputation of right foot History of transmetatarsal amputation of foot History of surgery H/O colonoscopy Recurrent pleural effusion Pleural effusion on right (07/13/23) Family History Father No problems noted. Mother No problems noted. 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 He is seen today with his adult son who speaks Uzbek and German in axis and drug inspector. ROM: With encouragement he could bring his fingertips ~2cm from his palm, with his middle fingertip ~3cm from his palm He was able to bend at the middle finger PIP joint today Finger necrosis: Index finger: ~1cm diameter area of necrotic skin just proximal to the nail. Middle finger: black mummification of the distal aspect of the finger, extending from the middle of the middle phalanx distally Radiographs: 3 views of the right hand were taken and viewed by me today in clinic. They show calcified outlines of all blood vessels of his hand, extending into his forearm. There is also evidence of soft tissue loss from the tip of the middle finger. Assessment & Plan Assessment & Plan (1) Necrosis of finger: Comment: R IF & MF Code(s): I96 - Gangrene, not elsewhere classified Category: Medical (2) Dry gangrene: Comment: R IF & MF Code(s): I96 - Gangrene, not elsewhere classified Category: Medical (3) Type 2 diabetes mellitus: Comment: taking insulin-no oral Rx Code(s): E11.9 - Type 2 diabetes mellitus without complications Category: Medical (4) Acute on chronic systolic and diastolic heart failure, NYHA class 3: Code(s): I50.43 - Acute on chronic combined systolic (congestive) and diastolic (congestive) heart failure Category: Medical (5) ESRD needing dialysis: Code(s): N18.6 - End stage renal disease; Z99.2 - Dependence on renal dialysis Category: Medical (6) Numbness and tingling in right hand: Code(s): R20.0 - Anesthesia of skin; R20.2 - Paresthesia of skin Category: Medical (7) PVD (peripheral vascular disease): Code(s): I73.9 - Peripheral vascular disease, unspecified Category: Medical Plan Assessment & Plan: 1. Right middle finger necrosis involving the pad from the tip to proximal to the DIP joint Secondary to PVD 2. Right Index finger tip necrosis Dorsal aspect at distal phalanx level I educated him and his son about this condition I discussed operative and non-operative treatment options I recommend amputation surgery, and he is in agreement. He is currently recovering from a right AKA by Dr. Cannon, DOS: 05/09/24, and he is working on better managing his Diabetes. He would benefit from a Middle finger middle phalanx level amputation, and an index finger middle phalanx/DIP joint level amputation He should work on gentle ROM exercises He has PVD, CHF, and ESRD. He is on Dialysis 3X weekly, and follows with Dr. Canonn. He is a Diabetic, and does not know his most recent HgA1c. They will need an updated HgA1c that is hopefully <8.1%, or at least close, to proceed with surgery, and they expressed understanding At present there is no evidence of infection, the fingertips are not particularly painful and this condition appears relatively stable for the time being. He will follow up in 3 weeks for a wound check. He should have an updated HgA1c if possible so we can consider scheduling a right middle finger middle phalanx level amputation at that time Scribed for Beatriz Rosales MD by Rolando Mosqueda, medical territory manager, on 07/16/24 at 4:00 PM, EST. Coding Level of Care Code Est Pt Level 4 (83730) Diagnoses Necrosis of finger I96 Dry gangrene I96 Type 2 diabetes mellitus E11.9 Acute on chronic systolic and diastolic heart failure, NYHA class 3 I50.43 ESRD needing dialysis N18.6; Z99.2 Numbness and tingling in right hand R20.0; R20.2 PVD (peripheral vascular disease) I73.9
--- OUTSIDE RECORDS SUMMARY | 2024-07-16 16:01 | XMS_ITS | Encounter Summary ---
Author Organization [facility] Address [address] [place] [address] Care Team Providers Care Mink Slicer Name Role Phone Cass Turcios MD Primary Care Provider [phone] Encounter Details Date Type Department Care Team (Late st Contact Info) Description 06/06/2024 Lab Requisition [facility] - Main Lab [address] [facility] [place] [address] Laurence Florence MD [address] [place] [address] Cellulitis of right lower limb; End stage [...] mg/dL LAB CHEMISTRY METHOD 06/06/2024 8:59 AM [facility] BUN 28(H) 5 - 25 mg/dL LAB CHEMISTRY METHOD 06/06/2024 8:59 AM [facility] Creatinine 3.78(H) 0.70 - 1.30 mg/dL LAB CHEMISTRY METHOD 06/06/2024 8:59 AM [facility] eGFR 17(L) >=60 mL/min/1. 73m2 LAB CHEMISTRY METHOD 06/06/2024 8:59 AM [facility] Comment:Calculation based on the??Chronic Kidney Disease Epidemiology Collaboration (CKD-EPI) equation refit??without adjustment for race. BUN/Creatinine Ratio 7.4 LAB CHEMISTRY METHOD 06/06/2024 8:59 AM [facility] Calcium 9.1 8.5 - 10.5 mg/dL LAB CHEMISTRY METHOD 06/06/2024 8:59 AM [facility] Blood Venous blood specimen / Unknown Venipuncture / Unknown 06/06/2024 5:35 AM EDT 06/06/2024 8:10 AM EDT us Laurence Florence MD LAB BLOOD ORDERABLES Final Resu lt [facility] [address] [place] [address], [place] [phone] * (ABNORMAL) Complete blood count (06/06/2024 5:35 AM EDT) [facility] WBC 9.3 4.8 - 10.8 K/mcL LAB [...] Final Resu lt [facility] [address] [place] [address], [place] [phone] documented in this encounter Visit Diagnoses Diagnosis Cellulitis of right lower limb End stage renal disease (CMS/HCC V24, CMS/HCC V28) End stage renal disease documented in this encounter Care Teams Mink Slicer Relationship Specialty Start Date End Date Cass Turcios MD [address] [place] [address] [address] [place] [address] PCP - General Geriatric Medicine 04/02/24 documented as of this encounter
--- OUTSIDE RECORDS SUMMARY | 2024-07-16 16:01 | XMS_ITS | Encounter Summary ---
Author Organization [facility] Address [address] [facility] [address] [address] [place] [address] Phone Care Team Providers Care Certified Pharmacy Technician Name Role Phone Jade Lewis MD Primary Care Provider + [phone] Reason for Visit * Reason Onset Date Comments Med Refill 04/19/2022 Encounter Details Date Type Department Care Team (Late st Contact Info) Description 04/19/2022 Refill [facility] [address] [place] [phone] Loida Madsen Social History Tobacco Use Types [...] filedocumented in this encounter Care Teams Certified Pharmacy Technician Relationship Specialty Start Date End Date Jade Lewis MD [address] [place] [address] PCP - General Internal Medicine 04/25/22 documented as of this encounter
--- OUTSIDE RECORDS SUMMARY | 2024-07-16 16:01 | XMS_ITS | Encounter Summary ---
Author Organization [facility], Address [address] [place] [address] Phone Care Team Providers Care Instrument And Electrical Technician Name Role Phone Jade Lewis MD Primary Care Provider [phone] Reason for Visit * Reason Comments Med Refill Encounter Details Date Type Department Care Team (Late st Contact Info) Description 05/22/2023 Refill [facility] [address] [place] [phone] Car Mcdonald MD [facility] [place] [address] Social History Tobacco Use Types Packs/Day Years [...] on filedocumented in this encounter Care Teams Instrument And Electrical Technician Relationship Specialty Start Date End Date Jade Lewis MD [address] [place] [address] PCP - General Internal Medicine 04/25/22 documented as of this encounter
--- OUTSIDE RECORDS SUMMARY | 2024-07-16 16:01 | XMS_ITS | Encounter Summary ---
Author Organization [facility] Address [address] [place] [address] Care Team Providers Care Bowl Topper Name Role Phone Cass Turcios MD Primary Care Provider [phone] Encounter Details Date Type Department Care Team (Late st Contact Info) Description 05/31/2024 Lab Requisition [facility] - Main Lab [address] [facility] [place] [address] Laurence Florence MD [address] [place] [address] End stage renal disease (CMS/HCC V24, CMS/HCC [...] CBC auto differential (05/31/2024 6:09 AM EDT) [facility] Signature WBC 10.9(H) 4.8 - 10.8 [...] lt [facility] [address] [place] [address], * (ABNORMAL) Basic metabolic panel (05/31/2024 6:09 [...] lt [facility] [address] [place] [address], documented in this encounter Visit Diagnoses Diagnosis End stage renal disease (CMS/HCC V24, CMS/HCC V28) End stage renal disease Anemia, unspecified documented in this encounter Care Teams Bowl Topper Relationship Specialty Start Date End Date Cass Turcios MD [address] [place] [address] [address] [place] [address] PCP - General Geriatric Medicine 04/02/24 documented as of this encounter
--- OUTSIDE RECORDS SUMMARY | 2024-07-16 16:01 | XMS_ITS | Encounter Summary ---
Author Organization [facility], Address [address] [place] [address] Phone Care Team Providers Care Drawing Supervisor Name Role Phone Jade Lewis MD Primary Care Provider + [phone] Reason for Visit * Reason Comments Med Refill Encounter Details Date Type Department Care Team (Late st Contact Info) Description 06/13/2023 Refill [facility] [address] [place] [phone] Malcolm Taylor MD [address] [place] [phone] Social History Tobacco Use Types Packs/Day Years [...] on filedocumented in this encounter Care Teams Drawing Supervisor Relationship Specialty Start Date End Date Jade Lewis MD [address] [place] [address] PCP - General Internal Medicine 04/25/22 documented as of this encounter
--- OUTSIDE RECORDS SUMMARY | 2024-07-16 16:01 | XMS_ITS | Clinical Summary ---
Author Organization [facility] Address [address] [place] [address] Phone Care Team Providers Care Assistant Commissioner Name Role Phone Cass Turcios MD Primary Care Provider [phone] Allergies No known active allergies Medications Ventolin [...] Department Care Team Description 06/06/2024 Lab Requisition [facility] Lab [address] [place] [address] Laurence Florence MD Cellulitis of right lower limb; End stage renal disease ([facility] V24, [facility] V28) 05/31/2024 Lab Requisition [facility] Lab [address] [facility] [place] [address] Laurence Florence MD End stage renal disease ([facility] V24, [facility] V28); Anemia, unspecified 05/30/2024 Lab Requisition [facility] Lab [address] [place] [address] Laurence Florence MD Chronic respiratory failure with hypoxia ([facility] V24, [facility] V28); Encounter for orthopedic aftercare following surgical amputation; Encounter for surgical aftercare following surgery on the circulatory system; Peripheral vascular disease, unspecified ([facility] V24) 05/30/2024 Lab Requisition [facility] Lab [address] [place] [phone] Laurence Florence MD Chronic respiratory failure with hypoxia ([facility] V24, [facility] V28); Encounter for orthopedic aftercare following surgical amputation; Encounter for surgical aftercare following surgery on the circulatory system; Peripheral vascular disease, unspecified ([facility] V24) 05/28/2024 Lab Requisition [facility] Lab [address] [place] [phone] Laurence Florence MD Anemia, unspecified; End stage renal disease ([facility] V24, [facility] V28); Unspecified asthma, uncomplicated 05/24/2024 Lab Requisition [facility] Lab [address] [place] [phone] Laurence Florence MD Chronic combined systolic (congestive) and diastolic (congestive) heart failure ([facility] V24, [facility] V28); Type 2 diabetes mellitus without complications ([facility] V24, [facility] V28); End stage renal disease ([facility] V24, [facility] V28) 05/21/2024 Lab Requisition [facility] Lab [address] [place] [phone] Laurence Florence MD Chronic combined systolic (congestive) and diastolic (congestive) heart failure ([facility] V24, [facility] V28); End stage renal disease ([facility] V24, [facility] V28) 05/20/2024 Lab Requisition [facility] Lab [address] [place] [phone] Laurence Florence MD Elevated white blood cell count, unspecified 05/18/2024 Lab Requisition [facility] Lab [address] [place] [phone] Elsy Christina PA Unspecified systolic (congestive) heart failure ([facility] V24, [facility] V28); Type 2 diabetes mellitus without complications ([facility] V24, [facility] V28); End stage renal disease ([facility] V24, [facility] V28) 05/17/2024 Lab Requisition [facility] Lab [address] [facility] [place] [address] Laurence Florence MD Type 2 diabetes mellitus without complications ([facility] V24, [facility] V28); End stage renal disease ([facility] V24, [facility] V28) from Last 3 Months Surgical History Surgery Date Site/Laterality Comments TOE AMPUTATION IR DIALYSIS CATH INSERT VASCULAR ACCESS Medical History Medical History Date Comments ESRD (end stage renal disease) on dialysis ([facility] V24, [facility] V28) MWF Hypertension Hyperlipidemia Gouty arthritis Diabetes mellitus ([facility] V24, [facility] V28) GERD (gastroesophageal reflux disease) COPD (chronic obstructive pulmonary disease) ([facility] V24, [facility] V28) Social History Tobacco Use Types Packs/Day [...] Control Test (HGBA1C) 11/18/2024 05/18/2024, 05/17/2024, 09/14/2023 Social Influencers of Health Screening 03/25/2025 03/25/2024 Falls Risk Assessment 03/27/2025 03/27/2024 Hypertension/CHF/CAD Annual BMP Blood Test 06/06/2025 06/06/2024, 05/31/2024, 05/30/2024, Additional history exists Depression Screening 07/04/2025 07/04/2024 Cholesterol Screening (Lipid Panel) 09/13/2028 09/14/2023, 09/14/2023, [...] EDT Type 2 diabetes mellitus without complications ([facility]/HCC) End stage renal disease (CMS/HCC) from Last 3 Months Results * (ABNORMAL) Complete blood count (06/06/2024 5:35 AM EDT) Only the most recent of5 resultswithin the time period is included. WBC 9.3 4.8 - 10.8 K/mcL LAB HEMETOLOGY METHOD 06/06/2024 8:35 AM [facility] RBC 3.20(L) 4.50 - 5.50 M/mcL LAB HEMETOLOGY METHOD 06/06/2024 8:35 AM [facility] Hemoglobin 7.6(L) 13.5 - 17.5 g/dL LAB HEMETOLOGY METHOD 06/06/2024 8:35 AM [facility] Hematocrit 26.2(L) 42.0 - 54.0 % LAB HEMETOLOGY METHOD 06/06/2024 8:35 AM [facility] MCV 80.9 79.0 - 98.0 FL LAB HEMETOLOGY METHOD 06/06/2024 8:35 AM [facility] MCH 23.5(L) 27.0 - [...] Final Resu lt [facility] [address] [place] [address], * (ABNORMAL) Basic metabolic panel (06/06/2024 5:35 AM EDT) Only the most recent of6 resultswithin the time period is included. Sodium 139 133 - 145 mmol/L LAB CHEMISTRY METHOD 06/06/2024 8:59 AM EDT [facility] Potassium 4.3 3.5 - 5.5 [...] Final Resu lt [facility] [address] [place] [address], [place] [phone] * (ABNORMAL) CBC auto differential (05/31/2024 6:09 AM EDT) Only the most recent of4 resultswithin the time period is included. WBC 10.9(H) 4.8 - 10.8 K/mcL LAB HEMETOLOGY METHOD 05/31/2024 10:13 AM [facility] RBC 3.20(L) 4.50 - 5.50 M/mcL LAB HEMETOLOGY METHOD 05/31/2024 10:13 AM [facility] Hemoglobin 7.7(L) 13.5 - 17.5 g/dL LAB HEMETOLOGY METHOD 05/31/2024 10:13 AM [facility] Hematocrit 26.1(L) 42.0 - 54.0 % LAB HEMETOLOGY METHOD 05/31/2024 10:13 AM [facility] MCV 81.8 79.0 - 98.0 FL LAB HEMETOLOGY METHOD 05/31/2024 10:13 AM [facility] MCH 24.1(L) 27.0 - 32.0 pcg LAB HEMETOLOGY METHOD 05/31/2024 10:13 AM [facility] MCHC 29.5(L) 32.0 - 37.0 g/dL LAB HEMETOLOGY METHOD 05/31/2024 10:13 AM [facility] RDW 17.8(H) 11.0 - 15.0 % LAB HEMETOLOGY METHOD 05/31/2024 10:13 AM [facility] Platelets 227 130 - 400 K/mcL LAB HEMETOLOGY METHOD 05/31/2024 10:13 AM [facility] MPV 10.6 7.0 - 11.0 FL LAB HEMETOLOGY METHOD 05/31/2024 10:13 AM [facility] NRBC 0.0 <1.0 % LAB HEMETOLOGY METHOD 05/31/2024 10:13 AM [facility] NRBC Absolute 0.00 <0.10 K/mcL LAB HEMETOLOGY METHOD 05/31/2024 10:13 AM [facility] Neutrophils Relative 69.5 % LAB HEMETOLOGY METHOD 05/31/2024 10:13 AM [facility] Lymphocytes Relative 19.2 % LAB HEMETOLOGY METHOD 05/31/2024 10:13 AM [facility] Monocytes Relative 8.4 % LAB HEMETOLOGY METHOD 05/31/2024 10:13 AM [facility] Eosinophils Relative 1.8 % LAB HEMETOLOGY METHOD 05/31/2024 10:13 AM [facility] Basophils Relative 0.5 % LAB HEMETOLOGY METHOD 05/31/2024 10:13 AM [facility] Immature Granulocytes Relative 0.6 % LAB HEMETOLOGY METHOD 05/31/2024 10:13 AM [facility] Neutrophils Absolute 7.60(H) 1.50 - 7.00 K/mcL LAB HEMETOLOGY METHOD 05/31/2024 10:13 AM [facility] Lymphocytes Absolute 2.10 1.00 - 5.00 K/mcL LAB HEMETOLOGY METHOD 05/31/2024 10:13 AM [facility] Monocytes Absolute 0.92 0.20 - 1.00 K/mcL LAB HEMETOLOGY METHOD 05/31/2024 10:13 AM [facility] Eosinophils Absolute 0.20 0.00 - 0.50 K/mcL LAB HEMETOLOGY METHOD 05/31/2024 10:13 AM [facility] Basophils Absolute 0.05 0.00 - 0.20 K/mcL LAB HEMETOLOGY METHOD 05/31/2024 10:13 AM [facility] Immature Granulocytes Absolute 0.07(H) 0.00 - 0.03 K/mcL LAB HEMETOLOGY METHOD 05/31/2024 10:13 AM EDT [facility] Blood Venous blood specimen / Unknown Venipuncture / Unknown 05/31/2024 6:09 AM EDT 05/31/2024 9:24 AM EDT us Laurence Florence MD LAB BLOOD ORDERABLES Final Resu lt Performing Organization Address [facility]/ZIP Co de Phone Number [facility] [address] [place] [address], [place] [phone] * Culture blood (05/30/2024 7:41 AM EDT) Only the most recent of2 resultswithin the time period is included. Culture, Blood No growth at 5 days LAB MICROBIOLOGY METHOD 06/04/2024 9:01 AM EDT [facility] Blood Venipuncture / Unknown 05/30/2024 7:41 AM EDT 05/30/2024 8:14 AM EDT us Laurence Florence MD LAB MICROBIOLOGY - GENERAL ORDE RABLES Final Result Performing Organization Address [facility] de Phone Number [facility] [address] [place] [address], [place] [phone] * (ABNORMAL) Sedimentation rate (05/30/2024 7:36 AM EDT) Sed Rate >130(H) 0 - 20 mm/hr LAB HEMETOLOGY METHOD 05/30/2024 8:57 AM EDT [facility] Blood Venous blood specimen / Unknown Venipuncture / Unknown 05/30/2024 7:36 AM EDT 05/30/2024 8:11 AM EDT Narrative [facility] - 05/30/2024 8:57 AM EDT Rechecked. us Laurence Florence MD LAB BLOOD ORDERABLES Final Resu lt Performing Organization Address [facility]/ZIP Co de Phone Number [facility] [address] [place] [address], [place] [phone] * (ABNORMAL) C-reactive protein (05/30/2024 7:36 AM EDT) [facility] C-Reactive Protein 11.60(H) <=0.50 mg/dL LAB CHEMISTRY METHOD 05/30/2024 8:51 AM EDT [facility] Blood Venous blood specimen / Unknown Venipuncture / Unknown 05/30/2024 7:36 AM EDT 05/30/2024 8:11 AM EDT us Laurence Florence MD LAB BLOOD ORDERABLES Final Resu lt Performing Organization Address [facility] Co de Phone Number [facility] [address] [place] [address], [place] [phone] * Lactate (05/30/2024 7:36 AM EDT) [facility] Lactate 0.6 0.4 - 2.0 mmol/L LAB CHEMISTRY METHOD 05/30/2024 8:47 AM EDT [facility] Blood Venous blood specimen / Unknown Venipuncture / Unknown 05/30/2024 7:36 AM EDT 05/30/2024 8:11 AM EDT us Laurence Florence MD LAB BLOOD ORDERABLES Final Resu lt Performing Organization Address [facility]/ZIP Co de Phone Number [facility] [address] [place] [address], [place] [phone] * (ABNORMAL) Comprehensive metabolic panel (05/30/2024 7:36 AM EDT) Only the most recent of2 resultswithin the time period is included. [facility] Sodium 140 133 - 145 mmol/L LAB [...] LAB CHEMISTRY METHOD 05/30/2024 9:08 AM EDT [facility] Alkaline Phosphatase 141(H) 42 - 121 unit/L LAB CHEMISTRY METHOD 05/30/2024 9:08 AM EDT [facility] Total Protein 6.3 6.0 - 8.0 g/dL LAB CHEMISTRY METHOD 05/30/2024 9:08 AM EDT [facility] Albumin 2.5(L) 3.2 - 5.0 g/dL LAB CHEMISTRY METHOD 05/30/2024 9:08 AM EDT [facility] Total Bilirubin 0.5 0.0 - 1.4 mg/dL LAB CHEMISTRY METHOD 05/30/2024 9:08 AM EDT [facility] Blood Venous blood specimen / Unknown Venipuncture / Unknown 05/30/2024 7:36 AM EDT 05/30/2024 8:11 AM EDT us Laurence Florence MD LAB BLOOD ORDERABLES Final Resu lt Performing Organization Address City/[facility]/ZIP Co de Phone Number [facility] [address] [place] [address], [place] [phone] * (ABNORMAL) Magnesium (05/29/2024 5:09 AM EDT) Magnesium 1.8(L) 1.9 - 2.6 mg/dL LAB CHEMISTRY METHOD 05/29/2024 9:20 AM EDT [facility] Blood Venous blood specimen / Unknown Venipuncture / Unknown 05/29/2024 5:09 AM EDT 05/29/2024 8:42 AM EDT us Laurence Florence MD LAB BLOOD ORDERABLES Final Resu lt [facility] [address] [place] [address], [place] [phone] * (ABNORMAL) Renal function panel (05/29/2024 5:09 [...] LAB CHEMISTRY METHOD 05/29/2024 10:03 AM EDT [facility] Blood Venous blood specimen / Unknown Venipuncture / Unknown 05/29/2024 5:09 AM EDT 05/29/2024 8:42 AM EDT us Laurence Florence MD LAB BLOOD ORDERABLES Final Resu lt Performing Organization Address [facility] Co de Phone Number [facility] [address] [place] [address], [place] [phone] * (ABNORMAL) Hemoglobin A1c (05/18/2024 7:20 AM EDT) Only the most recent of2 resultswithin the time period is included. Hemoglobin A1C 7.2(H) <6.5 % LAB CHEMISTRY METHOD 05/19/2024 12:06 PM EDT [facility] Mean Bld Glu Estim. 160 mg/dL LAB CHEMISTRY METHOD 05/19/2024 12:06 PM EDT [facility] Blood Venous blood specimen / Unknown Venipuncture / Unknown 05/18/2024 7:20 AM EDT 05/18/2024 9:58 AM EDT us Elsy MONTERO LAB BLOOD ORDERABLES Final Re sult Performing Organization Address [facility] Co de Phone Number [facility] [address] [place] [address], [place] [phone] from Last 3 Months Insurance MEDICARE ADVANTAGE [facility] MEDICARE MEDICAID - [place] Advance Directives Documents on File Type Date Recorded Patient Medical Office Technology Instructor Expl anation Advance Directives and Living Will 03/29/2024 1:25 PM PROXY Advance Directives and Living Will 03/29/2024 9:18 AM Nestor Garry Marie [facility] Care Proxy Advance Directives and Living Will [...] Nestor Marie Health Care Agent Beau Marie [facility] re Agent Care Teams Assistant Commissioner Relationship Specialty Start Date End Date Cass Turcios MD [address] [place] [address] [address] [place] [address] PCP - General Geriatric Medicine 04/02/24
--- OUTSIDE RECORDS SUMMARY | 2024-07-16 16:01 | XMS_ITS | Clinical Summary ---
Author Organization [employer] Address [address] [place] [address] [address] [place] [address] Care Team Providers Care Senior Ui Ux Designer Name Role Phone Unavailable Primary Care Provider [...] patient's age to complete this topic Insurance [place] [address] [address] STANDARD
--- OUTSIDE RECORDS SUMMARY | 2024-07-16 16:01 | XMS_ITS | Encounter Summary ---
Author Organization [facility] Address [address] [place] [address] Care Team Providers Care Door Cutter Name Role Phone Lainey Cody ESTUARDO Primary Care Provider [phone] Encounter Details Date Type Department Care Team ([facility] st Contact Info) Description 07/05/2024 Interim Notes [address] [address] [place], [place] [address] [place] [address] Social History Tobacco Use Types Packs/Day Years [...] been faxed to [facility] [address] [place] [address] phone number [phone] Fax number [phone] Rx sent to medical records with conformation for scanned documented in this encounter Plan of Treatment Upcoming Encounters Date Type Department Care Team (Late st Contact Info) Description 08/13/2024 11:00 AM EDT Office Visit [facility] Main [address] [place] [address] Pedro Ng PharmD [address] [place] [address] documented as of this encounter Visit Diagnoses Not on filedocumented in this encounter Additional Health Concerns Assessment Noted Time PHQ-9 Depression Total Score: 16 025 9:58 AM PDT documented as of this encounter Care Teams Door Cutter Relationship Specialty Start Date End Date Lainey Cody FNP [address] [place] [address] PCP - General Internal Medicine 12/11/23 documented as of this encounter
--- OUTSIDE RECORDS SUMMARY | 2024-07-16 16:02 | XMS_ITS | Clinical Summary ---
Author Organization [facility]. Address [address] [place] [address] Phone Care Team Providers Care Automatic Bandsaw Tender Name Role Phone Jade Lewis MD Primary Care Provider + [phone] Allergies Active Allergy Reactions Criticality Noted Date [...] FOR WHEEZING 1 Active ergocalciferol 1.25 MG (16121 UT) capsule Take 1 capsule (50,000 Units total) by mouth 1 (one) time per week 4 capsule 5 1 Active cetirizine (ZyrTEC) 10 MG tablet Take 10 mg by mouth 1 (one) time each day Active Fluticasone-Salm eterol 100-50 MCG/ACT aerosol powder [facility] - [place], [place] - [phone] [place] [phone] 60.00 Each 5 30 INHALE 1 PUFF [...] mouth daily. Prescribed by Dr. Car Mcdonald (primary teacher). 2 Active aspirin (ST ANITRA) 81 MG [...] asthma 03/31/2022 Overview (09/15/2022): 08/19/21 Eval at [facility]. Increase Advair to 100/50 F/u 6 months. 05/24/22 Eval at [facility], Dr Funez. Recommends Trelegy once daily. Plan for sleep study to assess need for CPAP. 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 Permacath for dialysis removed and a new one replaced. Will get cefazolin x 4 weeks after dialysis. Lantus decreased to 30 units. Pt to continue on Eliquis for the next few weeks until his AV fistula is ready for utilization. Abdominal pain 03/19/2021 Bacteremia 03/19/2021 Venous thrombosis 01/04/2021 Overview (01/26/2021): 12/13/20-12/19/20 Admitted to [facility] for non-occulsive thrombosis in R internal jugular vein. Acute embolism and thrombosis of left internal j ugular vein 12/21/2020 End stage renal failure on dialysis 11/19/2020 Overview (10/05/2021): [facility] Hypocalcemia 11/13/2020 Angina pectoris 11/09/2020 Coagulation defect 11/09/2020 Headache 11/09/2020 Type 2 diabetes mellitus with diabetic nephropat hy 11/09/2020 Edema 09/28/2020 Iron deficiency anemia 12/24/2019 Chronic kidney disease stage 4 02/19/2019 Anemia in chronic kidney disease 02/19/2019 History of colonoscopy 03/30/2016 Overview (01/26/2021): Approximately 2010 in [place] per Pt 11/24/20 Eval at [facility] GI, recommend colonoscopy. Resolved Problems [...] diabetes mellitus 06/12/2015 Overview (01/26/2021): Followed by [facility] Endocrinology. Last visit 06/23/15, HbA1c = 11.1%. Has diabetic nephropathy, retinopathy, and peripheral neuropathy. Switched to Novolin 70/30. Taking 23 units TID with meals, may titrate up/down depending on BG readings over the next few days. They are trying to submit PA for Lyrica. 04/27/16 F/u with Estefani Kaur, DO at [facility] Endocrine. [...] Only [facility] [address] [address] Car Mcdonald MD 07/03/2024 Orders Only [facility] [address] [address] Car Mcdonald MD 06/26/2024 Orders Only [facility] [address] [address] Car Mcdonald MD 06/26/2024 Treatment [facility] [place], [address] [place] [address] Arely Hernández APRN End stage renal disease; Dependence on renal dialysis 06/19/2024 Orders Only [facility] [address] [address] Car Mcdonald MD 06/17/2024 Orders Only [facility] [address] [address] Car Mcdonald MD 06/12/2024 Treatment [facility] [place] [address] [place] [address] Donny Griggs MD End stage renal disease; Dependence on renal dialysis 05/01/2024 Orders Only [facility] [address] [address] Car Mcdonald MD 2024 Orders Only [facility] [address] [address] Car Mcdonald MD 2024 Treatment [facility] [place] [address] [place] [address] Arely Hernández, CONDUCTOR/ENGINEER 04/24/2024 Treatment [facility] [address] [place] [address] Malcolm Taylor MD End stage renal disease; Dependence on renal dialysis 04/24/2024 Orders Only [facility] [address] [address] Car Mcdonald MD 04/22/2024 Orders Only [facility] [address] [address] Car Mcdonald MD 04/19/2024 Orders Only [facility] [address] [address] Car Mcdonald MD 04/19/2024 Treatment [facility] [place] [address] [place] [address] Arely Hernández, CONDUCTOR/ENGINEER from Last 3 Months Immunizations Immunization Administration [...] at 65 Diabetes Mother Heart disease Mother [place] Stroke Mother grandfather Hypertension Sibling 1 Kidney [...] ORDERABLES Final Re sult Performing Organization Address [facility] Co de Phone Number [facility] See order comments or contact performing lab Unknown, [place] * (ABNORMAL) POST CHEMISTRY (07/10/2024) Only the most recent of5 resultswithin the time period is included. BUN Post Dialysis 26(H) 6 - 19 mg/dL [facility] 07/10/2024 07/11/2024 9:4 5 AM EDT Narrative [facility] - 07/12/2024 Unless otherwise specified, test(s) performed at: [facility], [address] [place] [address] COMPOSITE BOND TECHNICIAN: Homero Garcia M.D. For any questions, please call customer service at FREQUENCY:MONTHLY Resulting Agency Comment Specimen source: Plasma Car Mcdonald MD LAB BLOOD ORDERABLES Final Re sult Performing Organization Address [facility] Co de Phone Number [facility] See order comments or contact performing lab Unknown, [place] * IMMUNO CHEMISTRY (07/10/2024) Only the most recent of3 resultswithin the time period is included. Hep B Surface Ag Negative Negative [facility] 07/10/2024 07/11/2024 11: 02 AM EDT Narrative Resulting Agency Comment Specimen source: Serum Car Mcdonald MD LAB BLOOD ORDERABLES Final Re sult Performing Organization Address City/[facility]/ZIP Co de Phone Number [facility] See order comments or contact performing lab Unknown, [place] * (ABNORMAL) HEMATOLOGY (07/10/2024) Only the most recent of8 resultswithin the time period is included. Hemoglobin 10.5(L) 14.0 - 18.0 g/dL [facility] Hemoglobin x 3 31.5(L) 42.0 - 54.0 % [facility] 07/10/2024 07/11/2024 9:4 9 AM EDT Narrative [facility] - 07/11/2024 Unless otherwise specified, test(s) performed at: [facility], [address] [place], [place] [id number] COMPOSITE BOND TECHNICIAN: Homero Garcia M.D. For any questions, please call customer service at FREQUENCY:MONTHLY Resulting Agency Comment Specimen source: Blood Car Mcdonald MD LAB BLOOD ORDERABLES Final Re sult [facility] See order comments or contact performing [...] 07/11/2024 Unless otherwise specified, test(s) performed at: [place] [address] COMPOSITE BOND TECHNICIAN: Homero Garcia M.D. For any questions, please call customer service at FREQUENCY:MONTHLY Resulting Agency Comment Specimen source: Serum Car Mcdonald MD LAB BLOOD ORDERABLES Edited R esult - Final Performing Organization Address City/[facility]/ZIP Co de Phone Number [facility] See order comments or contact performing lab Unknown, [place] * (ABNORMAL) SPECIAL CHEMISTRY (06/17/2024) Hemoglobin A1C 6.9(H) 4.8 - 5.9 % [facility] 06/17/2024 06/18/2024 8:4 3 AM EDT Narrative [facility] - 06/18/2024 Unless otherwise specified, test(s) performed at: [facility], [address] [place] [address] COMPOSITE BOND TECHNICIAN: Homero Garcia M.D. For any questions, [...] eNPCR 1.07 [facility] spKt/V Gotch 1.12 [facility] PCR 74.63 [facility] nPCR_HD 1.23 [facility] eKt/V Gotch 0.85 [facility] spKt/V (Daugirdas II) 1.10 [facility] WSTDKT/V 2.0 [facility] 05/01/2024 05/01/2024 [facility] Ordering Provider LAB BLOOD ORDERABLES Final Result Performing Organization Address City/[facility]/ZIP Co de Phone Number [facility] Contact Performing lab Unknown, [place] from Last 3 Months [place] Care Teams Automatic Bandsaw Tender Relationship Specialty Start Date End Date Jade Lewis MD [address] [place] [address] PCP - General Internal Medicine 04/25/22
--- OUTSIDE RECORDS SUMMARY | 2024-07-16 16:02 | XMS_ITS | Encounter Summary ---
Author Organization [facility] [place], Address [address] [place] [address] Phone Care Team Providers Care Bid Clerk Name Role Phone Jade Lewis MD Primary Care Provider + [phone] Reason for Visit * Reason Comments Med Refill Encounter Details Date Type Department Care Team ([facility] st Contact Info) Description 06/25/2019 Refill [facility] [address] [place] [address] Mercedes Law MD Social History [...] on filedocumented in this encounter Care Teams Bid Clerk Relationship Specialty Start Date End Date Jade Lewis MD [address] [place], [place] [phone] PCP - General Internal Medicine 04/25/22 documented as of this encounter
--- OUTSIDE RECORDS SUMMARY | 2024-07-16 16:02 | XMS_ITS | Encounter Summary ---
Author Organization [facility] [place], Address [address] [place] [address] Phone Care Team Providers Care Plastic Molder Name Role Phone Jade Lewis MD Primary Care Provider + [phone] Reason for Visit * Reason Comments Med Refill Encounter Details Date Type Department Care Team (Late st Contact Info) Description 04/27/2019 Refill [facility] [address] [place] [address] Mercedes Law MD Social History [...] on filedocumented in this encounter Care Teams Plastic Molder Relationship Specialty Start Date End Date Jade Lewis MD [address] [place], [place] [phone] PCP - General Internal Medicine 04/25/22 documented as of this encounter
--- OUTSIDE RECORDS SUMMARY | 2024-07-16 16:02 | XMS_ITS | Encounter Summary ---
Author Organization [facility] Address [address] [place] [address] Care Team Providers Care Cleater Name Role Phone Cass Turcios MD Primary Care Provider [phone] Encounter Details Date Type Department Care Team (Late st Contact Info) Description 05/21/2024 Lab Requisition [facility] - Main Lab [address] [facility] [place] [address] Laurence Florence MD [address] [place] [address] Chronic combined systolic (congestive) and diastolic (congestive) [...] [facility] RBC 3.80(L) 4.50 - [...] HEMETOLOGY METHOD 05/21/2024 12:49 PM EDT [facility] MPV 11.3(H) 7.0 - 11.0 [place] LAB HEM[facility]OLOGY [facility]24 [facility] NRBC 0.0 <1.0 % LAB HEMETOLOGY METHOD 05/21/2024 12:[facility] NRBC Absolute 0.00 <0.10 K/mcL [...] K/mcL LAB HEMETOLOGY METHOD 05/21/2024 12:[facility] Lymphocytes Absolute 1.87 1.00 - 5.00 K/mcL LAB HEMETOLOGY METHOD 05/21/2024 12:49 PM [facility] Monocytes Absolute 1.00 0.20 - 1.00 K/mcL LAB HEMETOLOGY METHOD 05/21/2024 12:49 PM EDT [facility] Eosinophils Absolute 0.29 0.00 - 0.50 K/[facility] LAB HEMETOLOGY METHOD 05/21/2024 12:49 PM EDT [facility] Basophils Absolute 0.06 0.00 - 0.20 K/mcL LAB HEMETOLOGY METHOD 05/21/2024 12:49 PM EDT [facility] Immature Granulocytes Absolute 0.11(H) 0.00 - 0.03 K/[facility] LAB HEMETOLOGY METHOD 05/21/2024 12:49 PM EDT [facility] Blood Venous blood specimen / Unknown Venipuncture / Unknown 05/21/2024 5:40 AM EDT 05/21/2024 11:19 AM EDT us Laurence Florence MD LAB BLOOD ORDERABLES Final Resu lt [facility] [address] [place] [address], [place] [phone] * (ABNORMAL) Basic metabolic panel (05/21/2024 5:40 AM EDT) Sodium 137 133 - 145 mmol/L LAB CHEMISTRY METHOD 05/21/2024 2:38 PM [facility] Potassium 5.3 3.5 - 5.5 mmol/L LAB CHEMISTRY METHOD 05/21/2024 2:38 PM T [facility] Comment:Hemolysis present Chloride 99 96 [...] CHEMISTRY METHOD 05/21/2024 2:38 PM EDT [facility] BUN 58(H) 5 - 25 mg/dL LAB CHEMISTRY METHOD 05/21/2024 2:38 PM EDT [facility] Creatinine 7.10(H) 0.70 - 1.30 mg/dL LAB CHEMISTRY METHOD 05/21/2024 2:38 PM EDT [facility] eGFR 8(L) >=60 mL/min/1. 73m2 LAB CHEMISTRY METHOD 05/21/2024 2:38 PM EDT [facility] Comment:Calculation based on the??Chronic Kidney Disease Epidemiology Collaboration (CKD-EPI) equation refit??without adjustment for race. BUN/Creatinine Ratio 8.2 LAB CHEMISTRY METHOD 05/21/2024 2:38 PM EDT [facility] Calcium 8.6 8.5 - 10.5 mg/dL LAB CHEMISTRY METHOD 05/21/2024 2:38 PM EDT [facility] Blood Venous blood specimen / Unknown Venipuncture / Unknown 05/21/2024 5:40 AM EDT 05/21/2024 11:19 AM EDT us Laurence Florence MD LAB BLOOD ORDERABLES Final Resu lt [facility] [address] [place] [address], documented in this encounter Visit Diagnoses Diagnosis Chronic combined systolic (congestive) and diastolic (congestive) heart failure (CMS/HCC V24, CMS/HCC V28) End stage renal disease (CMS/HCC V24, CMS/HCC V28) End stage renal disease documented in this encounter Care Teams Cleater Relationship Specialty Start Date End Date Cass Turcios MD [address] [place] [address] [address] [place] [address] PCP - General Geriatric Medicine 04/02/24 documented as of this encounter
--- OUTSIDE RECORDS SUMMARY | 2024-07-16 16:02 | XMS_ITS | Encounter Summary ---
Author Organization [facility] [place], Address [address] [place] [address] Phone Care Team Providers Care Malt Liquors Sales Representative Name Role Phone Jade Lewis MD Primary Care Provider [phone] Reason for Visit * Reason Comments Med Refill Encounter Details Date Type Department Care Team (Late st Contact Info) Description 10/27/2023 Refill [facility] [address] [place] [phone] Malcolm Taylor MD [address] [place] [address] [place] [address] Social History Tobacco Use Types Packs/Day Years [...] on filedocumented in this encounter Care Teams Malt Liquors Sales Representative Relationship Specialty Start Date End Date Jade Lewis MD [address] [place] [address] PCP - General Internal Medicine 04/25/22 documented as of this encounter
--- OUTSIDE RECORDS SUMMARY | 2024-07-16 16:02 | XMS_ITS | Encounter Summary ---
Author Organization [facility] [place], Address [address] [place] [address] Phone Care Team Providers Care Sheet Metal Layout Mechanic Name Role Phone Jaed Lewis MD Primary Care Provider + [phone] Encounter Details Date Type Department Care Team (Late st Contact Info) Description 07/10/2024 Orders Only [facility] [address] [place] [address] Car Mcdonald MD [address] [place] [address] [place] [address] Social History Tobacco Use Types Packs/Day Years [...] Re sult Performing Organization Address [facility] de Phone Number [facility] See order comments or contact performing lab Unknown, [place] * (ABNORMAL) POST CHEMISTRY (07/10/2024) BUN Post Dialysis 26(H) 6 - 19 mg/dL [facility] 07/10/2024 07/11/2024 9:4 5 AM EDT Narrative [facility] - 07/12/2024 Unless otherwise specified, test(s) performed at: [facility], [address] [place], [place] [id number] EMERGENCY SPILL RESPONSE TECHNICIAN: Homero Garcia M.D. For any questions, please call customer service at FREQUENCY:MONTHLY Resulting Agency Comment Specimen source: Plasma Car Mcdonald MD LAB BLOOD ORDERABLES Final Re sult Performing Organization Address [facility] de Phone Number [facility] See order comments or contact performing lab Unknown, [place] * IMMUNO CHEMISTRY (07/10/2024) Hep B Surface Ag Negative Negative [facility] 07/10/2024 07/11/2024 11: 02 AM EDT Narrative Resulting Agency Comment Specimen source: Serum Car Mcdonald MD LAB BLOOD ORDERABLES Final Re sult Performing Organization Address [facility]/ZIP Co de Phone Number [facility] See order comments or contact performing lab Unknown, [place] * (ABNORMAL) [facility] Chemistry (07/10/2024) BUN 71(H) 6 - 19 [...] 07/11/2024 Unless otherwise specified, test(s) performed at: [facility], [address] [place] [address] EMERGENCY SPILL RESPONSE TECHNICIAN: Homero Garcia M.D. For any questions, please call customer service at FREQUENCY:MONTHLY Resulting Agency Comment Specimen source: Serum Car Mcdonald MD LAB BLOOD ORDERABLES Edited R esult - Final Performing Organization Address [facility] Co de Phone Number [facility] See order comments or contact performing lab Unknown, [place] * (ABNORMAL) [facility] (07/10/2024) Pathologist [facility] PTH 451(H) 16 - 80 pg/mL [facility] 07/10/2024 07/11/2024 10: 05 AM EDT Narrative [facility] - 07/11/2024 Unless otherwise specified, test(s) performed at: [facility], [address] [place], [place] [id number] EMERGENCY SPILL RESPONSE TECHNICIAN: Homero Garcia M.D. For any questions, please call customer service at FREQUENCY:MONTHLY Resulting Agency Comment Specimen source: Plasma Car Mcdonald MD LAB BLOOD ORDERABLES Final Re sult Performing Organization Address [facility] de Phone Number [facility] See order comments or contact performing lab Unknown, [place] * (ABNORMAL) HEMATOLOGY (07/10/2024) [facility] Hemoglobin 10.5(L) 14.0 - 18.0 g/dL [facility] Hemoglobin x 3 31.5(L) 42.0 - 54.0 % [facility] 07/10/2024 07/11/2024 9:4 9 AM EDT Narrative [facility] - 07/11/2024 Unless otherwise specified, test(s) performed at: [facility], [address] [place], [place] [id number] EMERGENCY SPILL RESPONSE TECHNICIAN: Homero Garcia M.D. For any questions, please call customer service at FREQUENCY:MONTHLY Resulting Agency Comment Specimen source: Blood Car Mcdonald MD LAB BLOOD ORDERABLES Final Re sult Performing Organization Address [facility]/ZIP Co de Phone Number [facility] See order comments or contact performing lab Unknown, [place] documented in this encounter Visit Diagnoses Not on filedocumented in this encounter Care Teams Sheet Metal Layout Mechanic Relationship Specialty Start Date End Date Jade Lewis MD [address] [place] [address] PCP - General Internal Medicine 04/25/22 documented as of this encounter
--- OUTSIDE RECORDS SUMMARY | 2024-07-16 16:02 | XMS_ITS | Encounter Summary ---
Author Organization [facility] Address [address] [place] [address] Care Team Providers Care Agricultural Services Director Name Role Phone Cass Turcios MD Primary Care Provider [phone] Encounter Details Date Type Department Care Team (Late st Contact Info) Description 03/25/2024 Lab Requisition [facility] - Main Lab [address] [facility] [place] [address] Cass Turcios MD [address] [place] [address] Anemia, unspecified; Chronic diastolic (congestive) heart failure [...] your loved ones. For example, early childhood special educator or elderly care for an older adult? [...] LAB CHEMISTRY METHOD 03/25/2024 2:44 PM EST [facility] AST (SGOT) 21 [...] Resul t [facility] [address] [place] [address], * (ABNORMAL) Complete blood count (03/25/2024 5:09 AM EST) WBC 14.1(H) 4.8 - 10.8 K/mcL LAB HEMETOLOGY METHOD 03/25/2024 2:27 PM EST [facility] RBC 4.60 4.50 [...] LAB BLOOD ORDERABLES Final Resul t [facility] [address] [place] [address], documented in this encounter Visit Diagnoses Diagnosis Anemia, unspecified Chronic diastolic (congestive) heart failure ([facility] V24, [facility] V28) Other pericardial effusion (noninflammatory) End stage renal disease ([facility] V24, [facility] V28) End stage renal disease documented in this encounter Additional Health Concerns Infection Onset Date Last Indicated Resolved Time Respiratory Rule-Out 03/25/2024 03/25/2024 025 8:14 PM EST documented as of this encounter Care Teams Agricultural Services Director Relationship Specialty Start Date End Date Cass Turcios MD [address] [facility] [address] [place] [address] PCP - General Geriatric Medicine 04/02/24 documented as of this encounter
--- OUTSIDE RECORDS SUMMARY | 2024-07-16 16:02 | XMS_ITS | Encounter Summary ---
Author Organization [facility] [place], Address [address] [place] [address] Phone Care Team Providers Care Clinical Admissions Manager Name Role Phone Jade Lewis MD Primary Care Provider [phone] Reason for Visit * Reason Comments Med Refill Encounter Details Date Type Department Care Team (Late st Contact Info) Description 12/24/2022 Refill [facility] [address] [place] [phone] Car Mcdonald MD [facility] [place] [address] Social History Tobacco Use Types Packs/Day Years [...] on filedocumented in this encounter Care Teams Clinical Admissions Manager Relationship Specialty Start Date End Date Jade Lewis MD [address] [place] [address] PCP - General Internal Medicine 04/25/22 documented as of this encounter
--- OUTSIDE RECORDS SUMMARY | 2024-07-16 16:02 | XMS_ITS | Encounter Summary ---
Author Organization [facility] Address [address] [place] [address] Phone Care Team Providers Care Baggage Smasher Name Role Phone Jade Lewis MD Primary Care Provider [phone] Reason for Visit * Reason Comments Med Refill Encounter Details Date Type Department Care Team (Late st Contact Info) Description 07/23/2021 Refill [facility] [address] [place] [phone] Alejandro Santana MD [address] [place] [phone] Social History Tobacco Use Types Packs/Day Years [...] on filedocumented in this encounter Care Teams Baggage Smasher Relationship Specialty Start Date End Date Jade Lewis MD [address] [place] [address] PCP - General Internal Medicine 04/25/22 documented as of this encounter
--- OUTSIDE RECORDS SUMMARY | 2024-07-16 16:02 | XMS_ITS | Encounter Summary ---
Author Organization [facility], Address [address] [place] [address] Phone Care Team Providers Care Welding Machine Operator/Tender Name Role Phone Jade Lewis MD Primary Care Provider [phone] Encounter Details Date Type Department Care Team (Late st Contact Info) Description 10/28/2019 Orders Only [facility] [address] [phone] [place] [address] [place] [phone] Social History Tobacco Use Types Packs/Day Years [...] in this encounter Care Teams Welding Machine Operator/Tender Relationship Specialty Start Date End Date Jade Lewis MD [address] [place] [address] PCP - General Internal Medicine 04/25/22 documented as of this encounter
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
--- OUTSIDE RECORDS SUMMARY | 2024-07-16 16:02 | XMS_ITS | Encounter Summary ---
Author Organization [facility] Address [address] [place] [address] Care Team Providers Care It Risk Advisor Name Role Phone Cass Turcios MD Primary Care Provider [phone] Encounter Details Date Type Department Care Team (Late st Contact Info) Description 04/02/[address] [facility] - Main Lab [address] [facility] [place] [address] Cass Turcios MD [address] [place] [address] End stage renal disease (CMS/HCC V24, CMS/HCC [...] loved ones. For example, early childhood teacher or elderly care for an older [...] mmol/L LAB CHEMISTRY METHOD 04/02/2024 10:35 AM [facility] Potassium 5.6(H) 3.5 - 5.5 mmol/L LAB CHEMISTRY METHOD 04/02/2024 10:35 AM [facility] Chloride 95(L) 96 - 110 mmol/L LAB CHEMISTRY METHOD 04/02/2024 10:35 AM [facility] CO2 32 21 - 32 mmol/L LAB CHEMISTRY METHOD 04/02/2024 10:35 AM [facility] Anion Gap 8 3 - 11 LAB CHEMISTRY METHOD 04/02/2024 10:35 AM [facility] Glucose 32(LL) 70 - 100 mg/dL LAB CHEMISTRY METHOD 04/02/2024 10:35 AM [facility] BUN 50(H) 5 - 25 mg/dL LAB CHEMISTRY METHOD 04/02/2024 10:35 AM [facility] Creatinine 7.72(H) 0.70 - 1.30 mg/dL LAB CHEMISTRY METHOD 04/02/2024 10:35 AM [facility] eGFR 7(L) >=60 mL/min/1. 73m2 LAB CHEMISTRY METHOD 04/02/2024 10:35 AM [facility] Comment:Calculation based on the??Chronic Kidney Disease Epidemiology Collaboration (CKD-EPI) equation refit??without adjustment for race. BUN/Creatinine Ratio 6.5 LAB CHEMISTRY METHOD 04/02/2024 10:35 AM [facility] Calcium 8.3(L) 8.5 - 10.5 mg/dL LAB CHEMISTRY METHOD 04/02/2024 10:35 AM [facility] Blood Venous blood specimen / Unknown Venipuncture / Unknown 04/02/2024 5:24 AM EST 04/02/2024 8:48 AM EST us Cass Turcios MD LAB BLOOD ORDERABLES Final Resul t [facility] [address] [place] [address], * (ABNORMAL) Complete blood count (04/02/2024 5:24 AM EST) WBC 26.2(H) 4.8 - 10.8 K/mcL LAB HEMETOLOGY METHOD 04/02/2024 9:47 AM [facility] RBC 4.10(L) 4.50 - 5.50 M/mcL LAB HEMETOLOGY METHOD 04/02/2024 9:47 AM [facility] Hemoglobin 9.4(L) 13.5 - 17.5 g/dL LAB HEMETOLOGY METHOD 04/02/2024 9:47 AM [facility] Hematocrit 31.2(L) 42.0 - 54.0 % LAB HEMETOLOGY METHOD 04/02/2024 9:47 AM [facility] MCV 76.1(L) 79.0 - 98.0 FL LAB HEMETOLOGY METHOD 04/02/2024 9:47 AM [facility] MCH 22.9(L) 27.0 - 32.0 pcg LAB HEMETOLOGY METHOD 04/02/2024 9:47 AM [facility] MCHC 30.1(L) 32.0 - 37.0 g/dL LAB HEMETOLOGY METHOD 04/02/2024 9:47 AM [facility] RDW 17.1(H) 11.0 - 15.0 % LAB HEMETOLOGY METHOD 04/02/2024 9:47 AM [facility] Platelets 349 130 - 400 K/mcL LAB HEMETOLOGY METHOD 04/02/2024 9:47 AM [facility] MPV 11.4(H) 7.0 - [...] t [facility] [address] [place] [address], documented in this encounter Visit Diagnoses Diagnosis End stage renal disease (CMS/HCC V24, CMS/HCC V28) End stage renal disease documented in this encounter Care Teams It Risk Advisor Relationship Specialty Start Date End Date Cass Turcios MD [address] [place] [address] [address] [place] [address] PCP - General Geriatric Medicine 04/02/24 documented as of this encounter
--- OUTSIDE RECORDS SUMMARY | 2024-07-16 16:02 | XMS_ITS | Encounter Summary ---
Author Organization [facility], Address [address] [place] [address] Phone Care Team Providers Care Upholsterer Apprentice Name Role Phone Jade Lewis MD Primary Care Provider [phone] Reason for Visit * Reason Comments Med Refill Encounter Details Date Type Department Care Team ([facility] st Contact Info) Description 10/18/2023 Refill [facility] [address] [place] [phone] Malcolm Taylor MD [address] [place] [address] [place] [phone] Social History Tobacco Use Types Packs/Day Years [...] 10/19/2023 Unless otherwise specified, test(s) performed at: [facility], [address] [place] [address] BUSINESS DEVELOPMENT DIRECTOR: Homero Garcia M.D. For any questions, please call customer service at FREQUENCY:OTHER Resulting Agency Comment Specimen source: Blood us Car Mcdonald MD LAB BLOOD ORDERABLES Final Re sult [facility] See order comments or contact performing lab Unknown, [place] documented in this encounter Visit Diagnoses Not on filedocumented in this encounter Care Teams Upholsterer Apprentice Relationship Specialty Start Date End Date Jade Lewis MD [address] [place] [address] PCP - General Internal Medicine 04/25/22 documented as of this encounter
--- OUTSIDE RECORDS SUMMARY | 2024-07-16 16:02 | XMS_ITS | Encounter Summary ---
Author Organization [facility] Address [address] [place] [address] Care Team Providers Care Manganese Wheeler Name Role Phone Cass Turcios MD Primary Care Provider [phone] Encounter Details Date Type Department Care Team (Latest Contact Info) Description 05/24/2024 Lab Requisition [facility] - Main Lab [address] [facility] [place] [address] Laurence Florence MD [address] [place] [phone] Chronic combined systolic (congestive) and diastolic (congestive) [...] care for your loved ones. For example, home child care provider or elderly care for an [...] mellitus without complications End stage renal disease ([facility]/HCC) BASIC METABOLIC PANEL Routine 05/24/2024 5:56 AM EDT Chronic combined systolic (congestive) and diastolic (congestive) heart failure Type 2 diabetes mellitus without complications End stage renal disease ([facility]/HCC) documented in this encounter Results * (ABNORMAL) CBC auto differential (05/24/2024 5:56 AM EDT) [facility] WBC 9.3 4.8 - 10.8 K/mcL LAB HEMETOLOGY METHOD 05/24/2024 9:31 AM [facility] LAB RBC 3.40(L) 4.50 - 5.50 M/mcL LAB HEMETOLOGY METHOD 05/24/2024 9:31 AM [facility] LAB Hemoglobin 8.5(L) 13.5 - 17.5 g/dL LAB HEMETOLOGY METHOD 05/24/2024 9:31 AM [facility] LAB Hematocrit 28.2(L) 42.0 - 54.0 % LAB HEMETOLOGY METHOD 05/24/2024 9:31 AM [facility] LAB MCV 82.0 79.0 - 98.0 FL LAB HEMETOLOGY METHOD 05/24/2024 9:31 AM [facility] LAB MCH 24.7(L) 27.0 - 32.0 pcg LAB HEMETOLOGY METHOD 05/24/2024 9:31 AM [facility] LAB MCHC 30.1(L) 32.0 - 37.0 g/dL LAB HEMETOLOGY METHOD 05/24/2024 9:31 AM [facility] LAB RDW 17.8(H) 11.0 - 15.0 % LAB HEMETOLOGY METHOD 05/24/2024 9:31 AM [facility] LAB Platelets 335 130 - 400 K/mcL LAB HEMETOLOGY METHOD 05/24/2024 9:31 AM [facility] LAB MPV 10.5 7.0 - 11.0 FL LAB HEMETOLOGY METHOD 05/24/2024 9:31 AM [facility] LAB NRBC 0.0 <1.0 % LAB HEMETOLOGY METHOD 05/24/2024 9:31 AM [facility] LAB NRBC Absolute 0.00 <0.10 K/mcL LAB HEMETOLOGY METHOD 05/24/2024 9:31 AM [facility] Neutrophils Relative 67.5 % LAB HEMETOLOGY METHOD 05/24/2024 9:31 AM [facility] LAB Lymphocytes Relative 16.4 % LAB HEMETOLOGY METHOD 05/24/2024 9:31 AM [facility] Monocytes Relative 10.6 % LAB HEMETOLOGY METHOD 05/24/2024 9:31 AM [facility] Eosinophils Relative 4.5 % LAB HEMETOLOGY METHOD 05/24/2024 9:31 AM [facility] Basophils Relative 0.4 % LAB HEMETOLOGY METHOD 05/24/2024 9:31 AM [facility] Immature Granulocytes Relative 0.6 % LAB HEMETOLOGY METHOD 05/24/2024 9:31 AM [facility] Neutrophils Absolute 6.24 1.50 - 7.00 K/mcL LAB HEMETOLOGY METHOD 05/24/2024 9:31 AM [facility] Lymphocytes Absolute 1.52 1.00 - 5.00 K/mcL LAB HEMETOLOGY METHOD 05/24/2024 9:31 AM [facility] Monocytes Absolute 0.98 0.20 [...] Resu lt [facility] LAB [address] [place] [address], [place] [phone] * (ABNORMAL) Basic metabolic panel (05/24/2024 5:56 AM EDT) Sodium 134 133 - 145 mmol/L LAB CHEMISTRY METHOD 05/24/2024 9:53 AM [facility] Potassium 4.8 3.5 - 5.5 mmol/L LAB CHEMISTRY METHOD 05/24/2024 9:53 AM [facility] Chloride 100 96 - 110 mmol/L LAB CHEMISTRY METHOD 05/24/2024 9:53 AM [facility] CO2 26 21 - 32 mmol/L LAB CHEMISTRY METHOD 05/24/2024 9:53 AM [facility] Anion Gap 8 3 - 11 LAB CHEMISTRY METHOD 05/24/2024 9:53 AM [facility] Glucose 131(H) 70 - [...] Resu lt [facility] [address] [place] [address], documented in this encounter Visit Diagnoses Diagnosis Chronic combined systolic (congestive) and diastolic (congestive) heart failure (CMS/HCC V24, CMS/HCC V28) Type 2 diabetes mellitus without complications (CMS/HCC V24, CMS/HCC V28) End stage renal disease (CMS/HCC V24, CMS/HCC V28) End stage renal disease documented in this encounter Care Teams Manganese Wheeler Relationship Specialty Start Date End Date Cass Turcios MD [address] [place], [place] [id number] [place] [address] PCP - General Geriatric Medicine 04/02/24 documented as of this encounter
--- OUTSIDE RECORDS SUMMARY | 2024-07-16 16:02 | XMS_ITS | Encounter Summary ---
Author Organization [facility] Address [address] [place] [address] Phone Care Team Providers Care Group Managing Director Name Role Phone Jade Lewis MD Primary Care Provider [phone] Reason for Visit * Reason Comments Med Refill Encounter Details Date Type Department Care Team (Late st Contact Info) Description 04/30/2021 Refill [facility] [address] [place] [phone] Alejandro Santana MD [address] [place] [phone] Social History Tobacco Use Types Packs/Day Years [...] on filedocumented in this encounter Care Teams Group Managing Director Relationship Specialty Start Date End Date Jade Lewis MD [address] [place] [address] PCP - General Internal Medicine 04/25/22 documented as of this encounter
--- OUTSIDE RECORDS SUMMARY | 2024-07-16 16:02 | XMS_ITS | Encounter Summary ---
Author Organization [facility] Address [address] [place] [address] Care Team Providers Care News Assistant Name Role Phone Cass Turcios MD Primary Care Provider [phone] Encounter Details Date Type Department Care Team (Late st Contact Info) Description 05/18/2024 Lab Requisition [facility] - Main Lab [address] [facility] [place] [address] Elsy Christina PA [address] [facility] [address] [place] [address] Unspecified systolic (congestive) heart failure ([facility] V24, CMS/HCC V28); Type 2 diabetes mellitus without complications (CMS/HCC V24, CMS/HCC V28); End stage renal disease (CMS/HCC V24, [facility] V28) Social History Tobacco Use Types Packs/Day [...] for your loved ones. For example, children's ministry director or elderly care for an older [...] AM EDT Unspecified systolic (congestive) heart failure ([facility]/HCC) Type 2 diabetes mellitus without complications [...] LAB HEMETOLOGY METHOD 05/18/2024 10:27 AM [facility] RBC 3.60(L) 4.50 - 5.50 M/mcL LAB HEMETOLOGY METHOD 05/18/2024 10:27 AM [facility] Hemoglobin 8.8(L) 13.5 - 17.5 g/dL LAB HEMETOLOGY METHOD 05/18/2024 10:27 AM [facility] LAB Hematocrit 29.6(L) 42.0 - 54.0 % LAB HEMETOLOGY METHOD 05/18/2024 10:27 AM [facility] LAB MCV 83.1 79.0 - 98.0 FL LAB HEMETOLOGY METHOD 05/18/2024 10:27 AM [facility] MCH 24.7(L) 27.0 - 32.0 pcg LAB HEMETOLOGY METHOD 05/18/2024 10:27 AM [facility] MCHC 29.7(L) 32.0 - 37.0 g/dL LAB HEMETOLOGY METHOD 05/18/2024 10:27 AM [facility] RDW 18.3(H) 11.0 - 15.0 % LAB HEMETOLOGY METHOD 05/18/2024 10:27 AM [facility] LAB Platelets 433(H) 130 - 400 K/mcL LAB HEMETOLOGY METHOD 05/18/2024 10:27 AM [facility] MPV 10.5 7.0 - 11.0 FL LAB HEMETOLOGY METHOD 05/18/2024 10:27 AM [facility] NRBC 0.0 <1.0 % LAB HEMETOLOGY METHOD 05/18/2024 10:27 AM [facility] NRBC Absolute 0.00 <0.10 K/mcL LAB HEMETOLOGY METHOD 05/18/2024 10:27 AM [facility] Neutrophils Relative 75.0 % LAB HEMETOLOGY METHOD 05/18/2024 10:27 AM [facility] Lymphocytes Relative 15.7 % LAB HEMETOLOGY METHOD 05/18/2024 10:27 AM [facility] Monocytes Relative 5.9 % LAB HEMETOLOGY METHOD 05/18/2024 10:27 AM [facility] Eosinophils Relative 2.5 % LAB HEMETOLOGY METHOD 05/18/2024 10:27 AM [facility] Basophils Relative 0.3 % LAB HEMETOLOGY METHOD 05/18/2024 10:27 AM [facility] Immature Granulocytes Relative 0.6 % LAB HEMETOLOGY METHOD 05/18/2024 10:27 AM [facility] Neutrophils Absolute 11.02(H) 1.50 - 7.00 K/mcL LAB HEMETOLOGY METHOD 05/18/2024 10:27 AM EDT [facility] LAB Lymphocytes Absolute 2.30 1.00 - 5.00 K/[facility] LAB HEMETOLOGY METHOD 05/18/2024 10:27 AM EDT [facility] Monocytes Absolute 0.87 0.20 - 1.00 K/[facility] LAB HEMETOLOGY METHOD 05/18/2024 10:27 AM EDT [facility] Eosinophils Absolute 0.37 0.00 - 0.50 K/[facility] LAB HEMETOLOGY METHOD 05/18/2024 10:27 AM EDT [facility] Basophils Absolute 0.04 0.00 - 0.20 K/[facility] LAB HEMETOLOGY METHOD 05/18/2024 10:27 AM EDT [facility] LAB Immature Granulocytes Absolute 0.09(H) 0.00 - 0.03 K/[facility] LAB HEMETOLOGY METHOD 05/18/2024 10:27 AM EDT [facility] Blood Venous blood specimen / Unknown Venipuncture / Unknown 05/18/2024 7:20 AM EDT 05/18/2024 9:58 AM EDT us Elsy MONTERO LAB BLOOD ORDERABLES Final Re sult [facility] [address] [place] [address], * (ABNORMAL) Hemoglobin A1c (05/18/2024 7:20 AM [...] MONTERO LAB BLOOD ORDERABLES Final Re sult [facility] [address] [place] [address], [place] [phone] * (ABNORMAL) Basic metabolic panel (05/18/2024 7:20 AM EDT) Sodium 136 133 - 145 mmol/L LAB CHEMISTRY METHOD 05/18/2024 10:41 AM [facility] Potassium 4.8 3.5 - 5.5 mmol/L LAB CHEMISTRY METHOD 05/18/2024 10:41 AM [facility] Chloride 100 96 - 110 mmol/L LAB CHEMISTRY METHOD 05/18/2024 10:41 AM [facility] CO2 28 21 - 32 mmol/L LAB CHEMISTRY METHOD 05/18/2024 10:41 AM [facility] Anion Gap 8 3 - 11 LAB CHEMISTRY METHOD 05/18/2024 10:41 AM [facility] Glucose 77 70 - 100 mg/dL LAB CHEMISTRY METHOD 05/18/2024 10:41 AM [facility] BUN 43(H) 5 - 25 mg/dL LAB CHEMISTRY METHOD 05/18/2024 10:41 AM [facility] Creatinine 6.49(H) 0.70 - 1.30 mg/dL LAB CHEMISTRY METHOD 05/18/2024 10:41 AM [facility] eGFR 9(L) >=60 mL/min/1. 73m2 LAB CHEMISTRY METHOD 05/18/2024 10:41 AM [facility] LAB Comment:Calculation based on the??Chronic Kidney Disease Epidemiology Collaboration (CKD-EPI) equation refit??without adjustment for race. BUN/Creatinine Ratio 6.6 LAB CHEMISTRY METHOD 05/18/2024 10:41 AM [facility] Calcium 9.0 8.5 - 10.5 mg/dL LAB CHEMISTRY METHOD 05/18/2024 10:41 AM EDT [facility] Blood Venous blood specimen / Unknown Venipuncture / Unknown 05/18/2024 7:20 AM EDT 05/18/2024 9:58 AM EDT us Elsy MONTERO LAB BLOOD ORDERABLES Final Re sult [facility] [address] [place] [address], documented in this encounter Visit Diagnoses Diagnosis Unspecified systolic (congestive) heart failure ([facility] V24, [facility] V28) Type 2 diabetes mellitus without complications ([facility] V24, [facility] V28) End stage renal disease ([facility] V24, [facility] V28) End stage renal disease documented in this encounter Care Teams News Assistant Relationship Specialty Start Date End Date Cass Turcios MD [address] [place] [address] [address] [place] [address] PCP - General Geriatric Medicine 04/02/24 documented as of this encounter
--- OUTSIDE RECORDS SUMMARY | 2024-07-16 16:02 | XMS_ITS | Encounter Summary ---
Author Organization [facility] [address] Address [address] [place] [address] Care Team Providers Care Pipe Cleaner Name Role Phone Cass Turcios MD Primary Care Provider [phone] Encounter Details Date Type Department Care Team (Latest Contact Info) Description 05/28/2024 Lab Requisition [facility] - Main Lab [address] [facility] [place] [address] Laurence Florence MD [address] [place] [address] Anemia, unspecified; End stage renal disease (CMS/HCC [...] (ABNORMAL) Magnesium (05/29/2024 5:09 AM EDT) Pathologist [facility] Magnesium 1.8(L) 1.9 - 2.6 mg/dL LAB CHEMISTRY METHOD 05/29/2024 9:20 AM EDT [facility] Blood Venous blood specimen / Unknown Venipuncture / Unknown 05/29/2024 5:09 AM EDT 05/29/2024 8:42 AM EDT us Laurence Florence MD LAB BLOOD ORDERABLES Final Resu lt [facility] [address] [place] [address], * (ABNORMAL) Complete blood count (05/29/2024 5:09 AM EDT) [facility] WBC 10.8 4.8 - 10.8 K/mcL LAB HEMETOLOGY METHOD 05/29/2024 9:01 AM EDT [facility] RBC 3.50(L) 4.50 - 5.50 M/mcL LAB HEMETOLOGY METHOD 05/29/2024 9:01 AM EDT [facility] Hemoglobin 8.2(L) 13.5 - 17.5 g/dL LAB HEMETOLOGY METHOD 05/29/2024 9:01 AM EDT [facility] Hematocrit 28.4(L) 42.0 - 54.0 % LAB HEMETOLOGY METHOD 05/29/2024 9:01 AM EDT [facility] MCV 81.8 79.0 - 98.0 FL LAB HEMETOLOGY METHOD [facility]24 [facility] MCH 23.6(L) 27.0 - 32.0 pcg LAB HEMETOLOGY METHOD 05/29/2024 9:01 AM [facility] MCHC 28.9(L) 32.0 - 37.0 g/dL LAB HEMETOLOGY METHOD 05/29/2024 9:01 AM [facility] RDW 18.2(H) 11.0 - 15.0 % LAB HEMETOLOGY METHOD 05/29/2024 [facility] Platelets 263 130 - 400 K/mcL LAB HEMETOLOGY METHOD 05/29/2024 9:01 AM [facility] MPV 11.2(H) 7.0 - 11.0 FL LAB HEMETOLOGY METHOD 05/29/2024 9[facility] NRBC 0.0 <1.0 % LAB HEMETOLOGY METHOD 05/29/2024 9:01 AM [facility] NRBC Absolute 0.00 <0.10 K/mcL LAB HEMETOLOGY METHOD 05/29/2024 9:01 AM [facility] Blood Venous blood specimen / Unknown Venipuncture / Unknown 05/29/2024 5:09 AM EDT 05/29/2024 8:42 AM EDT us Laurence Florence MD LAB BLOOD ORDERABLES Final Resu lt [facility] [address] [place] [address], * (ABNORMAL) Renal function panel (05/29/2024 5:09 AM EDT) Sodium 135 133 - 145 mmol/L LAB CHEMISTRY METHOD 05/29/2024 10:03 AM T [facility] Potassium 4.7 3.5 - [...] AM [facility] Phosphorus 4.7(H) 2.5 - 4.5 mg/dL LAB CHEMISTRY METHOD 05/29/2024 10:03 AM [facility] Blood Venous blood specimen / Unknown Venipuncture / Unknown 05/29/2024 5:09 AM EDT 05/29/2024 8:42 AM EDT us Laurence Florence MD LAB BLOOD ORDERABLES Final Resu lt [facility] ([facility] [address] [place] [address], documented in this encounter Visit Diagnoses Diagnosis Anemia, unspecified End stage renal disease (CMS/HCC V24, CMS/HCC V28) End stage renal disease Unspecified asthma, uncomplicated documented in this encounter Care Teams Pipe Cleaner Relationship Specialty Start Date End Date Cass Turcios MD [address] [facility] [address] [place] [address] PCP - General Geriatric Medicine 04/02/24 documented as of this encounter
--- OUTSIDE RECORDS SUMMARY | 2024-07-16 16:02 | XMS_ITS | Encounter Summary ---
Author Organization [facility] Address [address] [place] [address] Care Team Providers Care Technology Methodology Consultant Name Role Phone Cass Turcios MD Primary Care Provider [phone] Encounter Details Date Type Department Care Team (Latest Contact Info) Description 05/17/2024 Lab Requisition [facility] - Main Lab [address] [facility] [place] [address] Laurence Florence MD [address] [place] [phone] Type 2 diabetes mellitus without complications (CMS/HCC [...] ([facility]/HCC) End stage renal disease ([facility]) HEMOGLOBIN A1C Routine 05/17/2024 5:37 AM EDT Type 2 diabetes mellitus without complications (CMS/HCC) End stage renal disease ([facility]/HCC) BASIC METABOLIC PANEL Routine 05/17/2024 5:37 AM [...] 05/17/2024 11:32 AM EDT [facility] Calcium 9.0 8.5 - 10.5 mg/dL LAB CHEMISTRY METHOD 05/17/2024 11:32 AM EDT [facility] Blood Venous blood specimen / Unknown Venipuncture / Unknown 05/17/2024 5:37 AM EDT 05/17/2024 9:43 AM EDT us Laurence Florence MD LAB BLOOD ORDERABLES Final Resu lt Performing Organization Address [facility] de Phone Number [facility] [address] [place] [address], [place] [phone] * (ABNORMAL) Hemoglobin A1c (05/17/2024 5:37 AM [...] City/[facility]/ZIP Co de Phone Number [facility] [address] [place] [address], [place] [phone] * (ABNORMAL) Complete blood count (05/17/2024 5:37 AM EDT) WBC 16.6(H) 4.8 - 10.8 K/[facility] LAB HEMETOLOGY METHOD 05/17/2024 10:40 AM EDT [facility] RBC 3.70(L) 4.50 - 5.50 M/[facility] LAB HEMETOLOGY METHOD 05/17/2024 10:40 [...] LAB BLOOD ORDERABLES Final Resu lt [facility] ([facility] HOSPITAL LAB [address] [place] [address], documented in this encounter Visit Diagnoses Diagnosis Type 2 diabetes mellitus without complications ([facility] V24, [facility] V28) End stage renal disease ([facility] V24, [facility] V28) End stage renal disease documented in this encounter Care Teams Technology Methodology Consultant Relationship Specialty Start Date End Date Cass Turcios MD [address] [facility] [address] [place] [address] PCP - General Geriatric Medicine 04/02/24 documented as of this encounter
--- OUTSIDE RECORDS SUMMARY | 2024-07-16 16:03 | XMS_ITS | Encounter Summary ---
Author Organization [facility] Address [address] [place] [address] Care Team Providers Care Life Science Teacher Name Role Phone Cass Turcios MD Primary Care Provider [phone] Encounter Details Date Type Department Care Team (Late st Contact Info) Description 05/30/2024 Lab Requisition [facility] - Main Lab 299 [facility] [place] [address] Laurence Florence MD [address] [place] [phone] Chronic respiratory failure with hypoxia (CMS/HCC V24, [...] for your loved ones. 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
--- OUTSIDE RECORDS SUMMARY | 2024-07-16 16:03 | XMS_ITS | Encounter Summary ---
Author Organization [facility], Address [address] [place] [address] Phone Care Team Providers Care Gmat Instructor Name Role Phone Jade Lewis MD Primary Care Provider [phone] Reason for Visit * Reason Comments Med Refill Encounter Details Date Type Department Care Team (Late st Contact Info) Description 09/17/2022 Refill [facility] [address] [place] [phone] Malcolm Taylor MD [address] [place] [address] [place] [address] Social History Tobacco Use Types Packs/Day Years [...] on filedocumented in this encounter Care Teams Gmat Instructor Relationship Specialty Start Date End Date Jade Lewis MD [address] [place] [address] PCP - General Internal Medicine 04/25/22 documented as of this encounter
--- OUTSIDE RECORDS SUMMARY | 2024-07-16 16:03 | XMS_ITS | Encounter Summary ---
Author Organization [facility] Address [address] [place] [address] Care Team Providers Care Route Salesman Name Role Phone Cass Turcios MD Primary Care Provider [phone] Encounter Details Date Type Department Care Team (Late st Contact Info) Description 05/30/2024 Lab Requisition [facility] - Main Lab [address] [facility] [place] [address] Laurence Florence MD [address] [place] [address] Chronic respiratory failure with hypoxia (CMS/HCC V24, [...] for your loved ones. For example, children's choir director or elderly care for an older [...] MICROBIOLOGY - GENERAL MALAIKA HURD Final Result [facility] [address] [place] [address], [place] [phone] * Lactate (05/30/2024 7:36 AM EDT) [facility] Lactate 0.6 0.4 - 2.0 mmol/L LAB CHEMISTRY METHOD 05/30/2024 8:[address] [facility] Blood Venous blood specimen / Unknown Venipuncture / Unknown 05/30/2024 7:36 AM EDT 05/30/2024 8:11 AM EDT us Laurence Florence MD LAB BLOOD ORDERABLES Final Resu lt [facility] [address] [place] [address], [place] [phone] * (ABNORMAL) C-reactive protein (05/30/2024 7:36 AM EDT) [facility] C-Reactive Protein 11.60(H) <=0.50 mg/dL LAB CHEMISTRY METHOD 05/30/2024 8:[address] [facility] Blood Venous blood specimen / Unknown Venipuncture / Unknown 05/30/2024 7:36 AM EDT 05/30/2024 8:11 AM EDT us Laurence Florence MD LAB BLOOD ORDERABLES Final Resu lt [facility] [address] [place] [address], [place] [phone] * (ABNORMAL) Sedimentation rate (05/30/2024 7:36 AM EDT) [facility] Sed Rate >130(H) 0 - 20 mm/hr LAB HEMETOLOGY METHOD 05/30/2024 8:[address] [facility] Blood Venous blood specimen / Unknown Venipuncture / Unknown 05/30/2024 7:36 AM EDT 05/30/2024 8:[address] [facility] - 05/30/2024 8:57 AM EDT Rechecked. us Laurence Florence MD LAB BLOOD ORDERABLES Final Resu lt [facility] [address] [place] [address], [place] [phone] * (ABNORMAL) Comprehensive metabolic panel (05/30/2024 7:36 AM EDT) Sodium 140 133 - 145 mmol/L LAB CHEMISTRY METHOD 05/30/2024 9:08 AM [facility] Potassium 4.2 3.5 - 5.5 mmol/L LAB CHEMISTRY METHOD 05/30/2024 9:08 AM [facility] Chloride 104 96 - 110 mmol/L LAB CHEMISTRY METHOD 05/30/2024 9:08 AM [facility] CO2 28 21 - 32 mmol/L LAB CHEMISTRY METHOD 05/30/2024 9:08 AM [facility] Anion Gap 8 3 - 11 LAB CHEMISTRY METHOD 05/30/2024 9:08 AM [facility] Glucose 77 70 - 100 mg/dL LAB CHEMISTRY METHOD 05/30/2024 9:08 AM [facility] BUN 35(H) 5 - 25 mg/dL LAB CHEMISTRY METHOD 05/30/2024 9:08 AM [facility] Creatinine 5.30(H) 0.70 - 1.30 mg/dL LAB CHEMISTRY METHOD 05/30/2024 9:08 AM [facility] eGFR 11(L) >=60 mL/min/1. 73m2 LAB CHEMISTRY METHOD 05/30/2024 9:08 AM [facility] Comment:Calculation based on the??Chronic Kidney Disease Epidemiology Collaboration (CKD-EPI) equation refit??without adjustment for race. BUN/Creatinine Ratio 6.6 LAB CHEMISTRY METHOD 05/30/2024 9:08 AM [facility] Calcium 9.0 8.5 - 10.5 mg/dL LAB CHEMISTRY METHOD 05/30/2024 9:08 AM [facility] AST (SGOT) 10 10 - 42 unit/L LAB CHEMISTRY METHOD 05/30/2024 9:08 AM [facility] ALT (SGPT) 13 10 - 60 unit/L LAB CHEMISTRY METHOD 05/30/2024 9:08 AM [facility] Alkaline Phosphatase 141(H) 42 - 121 unit/L LAB CHEMISTRY METHOD 05/30/2024 9:08 AM [facility] Total Protein 6.3 6.0 - 8.0 g/dL LAB CHEMISTRY METHOD 05/30/2024 9:08 AM [facility] Albumin 2.5(L) 3.2 - 5.0 g/dL LAB CHEMISTRY METHOD 05/30/2024 9:08 AM [facility] Total Bilirubin 0.5 0.0 - 1.4 mg/dL LAB CHEMISTRY METHOD 05/30/2024 9:08 AM [facility] Blood Venous blood specimen / Unknown Venipuncture / Unknown 05/30/2024 7:36 AM EDT 05/30/2024 8:11 AM EDT us Laurence Florence MD LAB BLOOD ORDERABLES Final Resu lt [facility] [address] [place] [address], * (ABNORMAL) Complete blood count (05/30/2024 7:36 AM EDT) WBC 9.7 4.8 - 10.8 K/mcL LAB HEMETOLOGY METHOD 05/30/2024 8:[address] [facility] RBC 3.20(L) 4.50 - 5.50 M/mcL LAB HEMETOLOGY METHOD 05/30/2024 8:29 AM [facility] Hemoglobin 7.7(L) 13.5 - 17.5 g/dL LAB HEMETOLOGY METHOD 05/30/2024 8:29 AM [facility] Hematocrit 26.0(L) 42.0 - 54.0 % LAB HEMETOLOGY METHOD 05/30/2024 8:29 AM [facility] MCV 81.5 79.0 - 98.0 FL LAB HEMETOLOGY METHOD 05/30/2024 8:29 AM [facility] MCH 24.1(L) 27.0 - 32.0 pcg LAB HEMETOLOGY METHOD 05/30/2024 8:29 AM [facility] MCHC 29.6(L) 32.0 - 37.0 g/dL LAB HEMETOLOGY METHOD 05/30/2024 8:29 AM [facility] RDW 17.8(H) 11.0 - 15.0 % LAB HEMETOLOGY METHOD 05/30/2024 8:29 AM [facility] Platelets 244 130 - 400 K/mcL LAB HEMETOLOGY METHOD 05/30/2024 8:29 AM [facility] MPV 11.1(H) 7.0 - 11.0 FL LAB HEMETOLOGY METHOD 05/30/2024 8:29 AM [facility] NRBC 0.0 <1.0 % LAB HEMETOLOGY METHOD 05/30/2024 8:29 AM [facility] NRBC Absolute 0.00 <0.10 K/mcL LAB HEMETOLOGY METHOD 05/30/2024 8:29 AM [facility] Blood Venous blood specimen / Unknown Venipuncture / Unknown 05/30/2024 7:36 AM EDT 05/30/2024 8:11 AM EDT us Laurence Florence MD LAB BLOOD ORDERABLES Final Resu lt [facility] [address] [place] [address], documented in this encounter Visit Diagnoses Diagnosis Chronic respiratory failure with hypoxia (CMS/[facility] V24, CMS/[facility] V28) Encounter for orthopedic aftercare following surgical amputation Encounter for surgical aftercare following surgery on the circulatory system Peripheral vascular disease, unspecified ([facility] V24) Peripheral vascular disease, unspecified documented in this encounter Care Teams Route Salesman Relationship Specialty Start Date End Date Cass Turcios MD [address] [place] [address] [address] [place] [address] PCP - General Geriatric Medicine 04/02/24 documented as of this encounter
--- OUTSIDE RECORDS SUMMARY | 2024-07-16 16:03 | XMS_ITS | Encounter Summary ---
Author Organization [facility], Address [address] [place] [address] Phone Care Team Providers Care Crossing Watchman Name Role Phone Jade Lewis MD Primary Care Provider + [phone] Reason for Visit * Reason Comments Med Refill Encounter Details Date Type Department Care Team ([facility] st Contact Info) Description 10/28/2020 Refill [facility] [address] [place] [phone] Alejandro Santana MD [address] [place] [phone] Social History Tobacco Use Types Packs/Day Years [...] on filedocumented in this encounter Care Teams Crossing Watchman Relationship Specialty Start Date End Date Jade Lewis MD [address] [place] [address] PCP - General Internal Medicine 04/25/22 documented as of this encounter
--- OUTSIDE RECORDS SUMMARY | 2024-07-16 16:03 | XMS_ITS | Encounter Summary ---
Author Organization [facility], Address [address] [place] [address] Phone Care Team Providers Care Apartment Locator Name Role Phone Jade Lewis MD Primary Care Provider + [phone] Reason for Visit * Reason Comments Med Refill Encounter Details Date Type Department Care Team ([facility] st Contact Info) Description 11/27/2020 Refill [facility] [address] [place] [phone] Alejandro Santana MD [address] [place] [phone] Social History Tobacco Use Types Packs/Day Years [...] on filedocumented in this encounter Care Teams Apartment Locator Relationship Specialty Start Date End Date Jade Lewis MD [address] [place] [address] PCP - General Internal Medicine 04/25/22 documented as of this encounter
== END 2024-07-16 16:17 | disposition home or self-care (01) ==
LOC: HO.HOS 15:01
PROVIDERS: Visit Provider Orthopaedic Surgery
DX: I96 Gangrene, not elsewhere classified (principal); E11.9 Type 2 diabetes mellitus without complications; I50.43 Acute on chronic combined systolic (congestive) and diastolic (congestive) heart failure; N18.6 End stage renal disease; Z99.2 Dependence on renal dialysis; R20.0 Anesthesia of skin; R20.2 Paresthesia of skin; I73.9 Peripheral vascular disease, unspecified
CPT/HCPCS: 99214

== ENCOUNTER → 2024-07-16 15:07 | Outpatient (BNV) | payer MEDICARE, MEDICAID, SELFPAY | PROVIDERS: Visit Provider Radiology Diagnostic Radiology | DX: M79.642 Pain in left hand (principal); M85.841 Other specified disorders of bone density and structure, right hand | CPT/HCPCS: 73130 ==

== ENCOUNTER 2024-07-30 09:48 | Outpatient (AMB) | payer MEDICARE, MEDICAID, SELFPAY ==
--- NOTE | 2024-07-30 09:46 | A.OFFVIS_ITS ---
Intake Visit Reasons: 2 week wound check follow up Intake Note: 2 week follow up Right AKA 06/06/24. Pt states dressing is changed daily. Enamel Applier Required: No Allergies Iodinated Contrast Media [Contrast Dye] Allergy (Severe, Verified 07/30/24 09:50) Facial Swelling hydralazine Adverse Reaction (Severe, Verified 07/30/24 09:50) vasculitis HPI HPI 2 week wound check follow up: Details: The patient is a 69-year-old male presenting nonhealing right AKA stump and left great toe and posterior calf dry ulceration. Consistent daily cleansing is practiced, contributing to its managed state. Routine assessment continues, ensuring progressive recovery. In addition we did discuss the fact that he is on a good diet with high-protein intake. Now presents for routine vascular follow-up. [facility] Medical History Type 2 diabetes mellitus Dry gangrene PVD (peripheral vascular disease) ESRD needing dialysis Above knee amputation of right lower extremity Left ventricular systolic dysfunction (LVSD) Postop check Acute pericardial effusion Right sided weakness Dehiscence of wound Peripheral arterial disease Cellulitis of right foot Hypertension HFrEF (heart failure with reduced ejection fraction) ESRD (end stage renal disease) Chronic combined systolic and diastolic CHF (congestive heart failure) Chronic pericardial effusion Arthritis Asthma Restless leg syndrome Acute on chronic systolic and diastolic heart failure, NYHA class 3 Anemia ESRD (end stage renal disease) Occlusive thrombus Pulmonary edema ROBERT (obstructive sleep apnea) Hyperlipidemia Hypertension A-V fistula ESRD on dialysis Falling Surgical History Status post creation of pericardial window Postop check Hx of right BKA Status post transmetatarsal amputation of right foot History of transmetatarsal amputation of foot History of surgery H/O colonoscopy Recurrent pleural effusion Pleural effusion on right (07/13/23) Family History Father No problems noted. Mother No problems noted. 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 Review of Systems Const All systems reviewed & are unremarkable except as noted in HPI and below Reports no additional complaints ENT Reports Normal hearing present Card Denies chest pain, Denies chest pain at rest, Denies chest pain with activity and Denies pedal edema Resp Denies cough GI Denies abdominal pain Musc Denies abnormal gait, Denies muscle cramps and Denies radiating pain into limb Skin/Breast Denies skin ulcer and Denies wounds Neuro Reports Normal hearing present and Denies abnormal gait Psych Reports no additional complaints Physical Exam Const General: cooperative, healthy appearing and comfortable Orientation/consciousness: oriented to person, oriented to place and oriented to time HEENT Head: Yes normal to inspection Neck Neck: Yes normal visual inspection Carotids: no bruits Chest Chest palpation & inspection: normal inspection of the chest Resp Effort & Inspection: normal respiratory effort and able to speak in complete sentences Auscultation: clear to auscultation bilaterally, no crackles, no rales, no rhonchi and no wheezes Cardio Rate: regular rate Rhythm: regular rhythm Heart sounds: S1 normal heart sound present and S2 normal heart sound present Bruits: no carotid bruits Peripheral pulses: Peripheral pulses 2+ throughout GI Inspection: Yes normal to inspection Skin Other: Right AKA stump wound measuring 4 x 4 x 0.3 cm Left great toe and posterior calf both with dry eschars. Wounds: amputation site and wounds noted Hair: normal Neuro General: oriented to person, oriented to place and oriented to time Cranial nerves: Yes CN's II-XII intact bilaterally and Yes Normal hearing present Cognition (Neuro): normal cognition Motor exam (neuro): 5/5 motor strength present throughout Extrem Other: venous exam: No significant superficial varicosities or spider telangiectasias, minimal edema General: No clubbing, No cyanosis and No edema Psych Appearance: grossly normal Mental Status: mental status grossly normal Speech and movement: Normal speech and movement present Assessment & Plan Assessment & Plan (1) AKA stump complication: Code(s): T87.9 - Unspecified complications of amputation stump Category: Medical Plan: In short AKA stump continues to improve nicely. Continue with current wound regimen. Will address left great toe and posterior calf ulceration once the stump heals. He is being followed by orthopedics regarding his nonhealing hand ulcer. Thank you for allowing us to assist in his care. If there are any questions or concerns please do not hesitate to contact us. Coding Level of Care Code Est Pt Level 4 (90814) Diagnoses AKA stump complication T87.9
--- OUTSIDE RECORDS SUMMARY | 2024-07-30 10:25 | XMS_ITS | Encounter Summary ---
Author Organization [facility] Address [address] [place] [address] Care Team Providers Care Rating Specialist Name Role Phone Cass Turcios MD Primary Care Provider [phone] Encounter Details Date Type Department Care Team (Late st Contact Info) Description 06/06/2024 Lab Requisition [facility] - Main Lab [address] [facility] [place] [address] Laurecne Florence MD [address] [place] [address] Cellulitis of right lower limb; End stage [...] your loved ones. For example, child development teacher or elderly care for an older [...] mmol/L LAB CHEMISTRY METHOD 06/06/2024 8:59 AM [facility] Potassium 4.3 3.5 - 5.5 mmol/L LAB CHEMISTRY METHOD 06/06/2024 8:59 AM [facility] Chloride 106 96 - 110 mmol/L LAB CHEMISTRY METHOD 06/06/2024 8:59 AM [facility] CO2 27 21 - 32 mmol/L LAB CHEMISTRY METHOD 06/06/2024 8:59 AM [facility] Anion Gap 6 3 - 11 LAB CHEMISTRY METHOD 06/06/2024 8:59 AM [facility] Glucose 162(H) 70 - 100 mg/dL LAB CHEMISTRY METHOD 06/06/2024 8:59 AM [facility] BUN 28(H) 5 - 25 mg/dL LAB CHEMISTRY METHOD 06/06/2024 8:59 AM [facility] Creatinine 3.78(H) 0.70 - 1.30 mg/dL LAB CHEMISTRY METHOD 06/06/2024 8:59 AM [facility] eGFR 17(L) >=60 mL/min/1. 73m2 LAB CHEMISTRY METHOD 06/06/2024 8:59 AM [facility] Comment:Calculation based on the??Chronic Kidney Disease Epidemiology Collaboration (CKD-EPI) equation refit??without adjustment for race. BUN/Creatinine Ratio 7.4 LAB CHEMISTRY METHOD 06/06/2024 8:59 AM [facility] Calcium 9.1 8.5 - 10.5 mg/dL LAB CHEMISTRY METHOD 06/06/2024 8:59 AM [facility] Blood Venous blood specimen / Unknown Venipuncture / Unknown 06/06/2024 5:35 AM EDT 06/06/2024 8:10 AM EDT us Laurence Florence MD LAB BLOOD ORDERABLES Final Resu lt [facility] [address] [place] [address], [place] [phone] * (ABNORMAL) Complete blood count (06/06/2024 5:35 AM EDT) [facility] WBC 9.3 4.8 - 10.8 K/mcL LAB HEMETOLOGY METHOD 06/06/2024 8:35 AM EDT [facility] RBC 3.20(L) 4.50 - 5.50 M/mcL LAB HEMETOLOGY METHOD 06/06/2024 8:35 AM EDT [facility] Hemoglobin 7.6(L) 13.5 - 17.5 g/dL LAB HEMETOLOGY METHOD 06/06/2024 8:35 AM EDT [facility] Hematocrit 26.2(L) 42.0 - 54.0 % LAB HEMETOLOGY METHOD 06/06/2024 8:35 AM EDT [facility] MCV 80.9 79.0 - 98.0 FL LAB HEMETOLOGY METHOD 06/06/2024 8:35 AM EDT [facility] MCH 23.5(L) 27.0 - 32.0 pcg LAB HEMETOLOGY METHOD 06/06/2024 8:35 AM EDT [facility] MCHC 29.0(L) 32.0 - 37.0 g/dL LAB HEMETOLOGY METHOD 06/06/2024 8:35 AM EDT [facility] RDW 16.8(H) 11.0 - 15.0 % LAB HEMETOLOGY METHOD 06/06/2024 8:35 AM EDT [facility] Platelets 264 130 - 400 K/mcL LAB HEMETOLOGY METHOD 06/06/2024 8:35 AM EDT [facility] MPV 12.3(H) 7.0 - 11.0 FL LAB HEMETOLOGY METHOD 06/06/2024 8:35 AM EDT [facility] NRBC 0.0 <1.0 % LAB HEMETOLOGY METHOD 06/06/2024 8:35 AM EDT [facility] NRBC Absolute 0.00 <0.10 K/mcL LAB HEMETOLOGY METHOD 06/06/2024 8:35 AM EDT [facility] Blood Venous blood specimen / Unknown Venipuncture / Unknown 06/06/2024 5:35 AM EDT 06/06/2024 8:10 AM EDT us Laurence Florence MD LAB BLOOD ORDERABLES Final Resu lt [facility] [address] [place] [address], [place] [phone] documented in this encounter Visit Diagnoses Diagnosis Cellulitis of right lower limb End stage renal disease (CMS/HCC V24, CMS/HCC V28) End stage renal disease documented in this encounter Care Teams Rating Specialist Relationship Specialty Start Date End Date Cass Turcios MD [address] [place] [address] [address] [place] [address] PCP - General Geriatric Medicine 04/02/24 documented as of this encounter
== END 2024-07-30 10:07 | disposition home or self-care (01) ==
LOC: HO.HVS 09:48
PROVIDERS: Visit Provider Surgery Vascular Surgery
DX: T87.9 Unspecified complications of amputation stump (principal)
CPT/HCPCS: 99024

== ENCOUNTER → 2024-07-30 09:48 | Outpatient (BNVA) | payer MEDICARE, MEDICAID, SELFPAY | PROVIDERS: Visit Provider Surgery Vascular Surgery | DX: T87.89 Other complications of amputation stump (principal); Z89.511 Acquired absence of right leg below knee | CPT/HCPCS: 99212 ==

== ENCOUNTER 2024-08-06 07:27 | Outpatient (AMB) | payer MEDICARE, MEDICAID, SELFPAY ==
--- OUTSIDE RECORDS SUMMARY | 2024-08-06 07:30 | XMS_ITS | Encounter Summary ---
Author Organization [facility] Address [address] [place] [address] Care Team Providers Care Sprinkler Fitter Apprentice Name Role Phone Cass Turcios MD Primary Care Provider [phone] Encounter Details Date Type Department Care Team (Late st Contact Info) Description 06/06/2024 Lab Requisition [facility] - Main Lab 299 [facility] [place] [address] Laurence Florence MD [address] [place] [address] Cellulitis of right lower limb; End stage [...] loved ones. For example, child care center assistant director or elderly care for an older [...] Resu lt [facility] [address] [place] [address], [place] [phone] * (ABNORMAL) Complete blood count (06/06/2024 5:35 AM EDT) [facility] WBC 9.3 4.8 - 10.8 K/mcL [...] Resu lt [facility] [address] [place] [address], [place] [phone] documented in this encounter Visit Diagnoses Diagnosis Cellulitis of right lower limb End stage renal disease (CMS/HCC V24, CMS/HCC V28) End stage renal disease documented in this encounter Care Teams Sprinkler Fitter Apprentice Relationship Specialty Start Date End Date Cass Turcios MD [address] [place] [address] [address] [place] [address] PCP - General Geriatric Medicine 04/02/24 documented as of this encounter
--- NOTE | 2024-08-06 08:16 | MHC.OFFVIS ---
Intake Visit Reasons: OV- Left MF necrosis/pain Intake Note: Beau 69 yr old male presents today with his son Beau for a follow up visit for his left necrosis of his middle finger. At his last visit he was advise he needs to work on lowering his A1C. States his sugars are well controlled, however he is having increase pain, swelling and is not able to get a good night sleep due to pain. Allergies Iodinated Contrast Media [Contrast Dye] Allergy (Severe, Verified 08/06/24 08:23) Facial Swelling hydralazine Adverse Reaction (Severe, Verified 08/06/24 08:23) vasculitis HPI HPI OV- Left MF necrosis/pain: Details: Beau is a 69 year old right hand dominant Diabetic New Zealander speaking man, here with his son acting as a taper/finisher, for a follow up of his right middle finger necrosis. He resides in a rehab center at this time. He complains of pain & limited use of his right index & middle fingers, along with an increase in swelling, which he finds bothersome. He says this is preventing him from sleeping comfortably at night. He feels his fingertips are drying up . He also says he has no sensation in these fingers. He has been working hard to keep them clean. 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 Cannon. He continues to follow with vascular for wound care of his AKA. His son reports that this wound is finally starting to heal well.. He has ESRD, CHF, PVD, and Diabetes. He is on Dialysis 3x weekly. He is a Diabetic, which is poorly controlled. He has not had a recent HgA1c checked but his daily sugars range from ~90's-150's on average, according to his son. [facility] Medical History Type 2 diabetes mellitus Dry gangrene PVD (peripheral vascular disease) ESRD needing dialysis Above knee amputation of right lower extremity Left ventricular systolic dysfunction (LVSD) Postop check Acute pericardial effusion Right sided weakness Dehiscence of wound Peripheral arterial disease Cellulitis of right foot Hypertension HFrEF (heart failure with reduced ejection fraction) ESRD (end stage renal disease) Chronic combined systolic and diastolic CHF (congestive heart failure) Chronic pericardial effusion Arthritis Asthma Restless leg syndrome Acute on chronic systolic and diastolic heart failure, NYHA class 3 Anemia ESRD (end stage renal disease) Occlusive thrombus Pulmonary edema ROBERT (obstructive sleep apnea) Hyperlipidemia Hypertension A-V fistula ESRD on dialysis Falling Surgical History Status post creation of pericardial window Postop check Hx of right BKA Status post transmetatarsal amputation of right foot History of transmetatarsal amputation of foot History of surgery H/O colonoscopy Recurrent pleural effusion Pleural effusion on right (07/13/23) Family History Father No problems noted. Mother No problems noted. 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 He is seen today with his adult son who speaks [place]ander and [place] and also was able to act as an quality control representative. A needle was also present act as an quality control representative. ROM: With encouragement he could bring his fingertips ~2cm from his palm, with his middle fingertip ~3cm from his palm He was able to bend at the middle finger PIP joint today Finger necrosis: Index finger: ~1x 1.5 cm diameter area of necrotic skin just proximal to the nail. No evidence of healing. I do not believe he has the capability to heal this wound. He finds the finger to be painful. Middle finger: black mummification of the distal aspect of the finger, extending from the middle of the middle phalanx distally. There is also an area of necrotic skin on the dorsal aspect of the distal phalanx which does not appear to be healing No evidence of active infection. Radiographs: 3 views of the right hand from 07/16/24 were reviewed by me today in clinic. They show calcified outlines of all blood vessels of his hand, extending into his forearm. There is also evidence of soft tissue loss from the tip of the middle finger. Assessment & Plan Assessment & Plan (1) Necrosis of finger: Comment: R IF & MF Code(s): I96 - Gangrene, not elsewhere classified Category: Medical (2) Dry gangrene: Comment: R IF & MF Code(s): I96 - Gangrene, not elsewhere classified Category: Medical (3) Type 2 diabetes mellitus: Comment: taking insulin-no oral Rx Code(s): E11.9 - Type 2 diabetes mellitus without complications Category: Medical (4) Acute on chronic systolic and diastolic heart failure, NYHA class 3: Code(s): I50.43 - Acute on chronic combined systolic (congestive) and diastolic (congestive) heart failure Category: Medical (5) ESRD needing dialysis: Code(s): N18.6 - End stage renal disease; Z99.2 - Dependence on renal dialysis Category: Medical (6) Numbness and tingling in right hand: Code(s): R20.0 - Anesthesia of skin; R20.2 - Paresthesia of skin Category: Medical (7) PVD (peripheral vascular disease): Code(s): I73.9 - Peripheral vascular disease, unspecified Category: Medical Plan Assessment & Plan: 1. Right middle finger necrosis involving the pad from the tip to proximal to the DIP joint Secondary to PVD 2. Right Index finger tip necrosis Dorsal aspect at distal phalanx level I educated him and his son about this condition I discussed operative and non-operative treatment options I recommend amputation surgery, and he is in agreement. He is currently recovering from a right AKA by Dr. Cannon, DOS: 05/09/24, and he is working on better managing his Diabetes. He would benefit from a Middle finger middle phalanx level amputation, and an index finger middle phalanx/DIP joint level amputation, and the patient is in agreement The risks and benefits of operative treatment were discussed with the patient and the patient wishes to proceed with surgery. These risks include, but are not limited to risk of damage to blood vessels, nerves, tendons, infection, recurrence, incomplete relief of preoperative symptoms, persistent pain, possible need for further surgery and the risks associated with regional blocks and anesthesia. The plan is to take the patient to the operating room sometime on 08/15/24 for the following procedures: 1. Right index finger DIP joint level partial amputation, under general 2. Right middle finger middle phalanx level partial amputation, under general All of the preoperative paperwork including the consent was reviewed today. All the patient's questions were answered. The patient understands that they will be contacted by our fruit thinner soon to schedule this procedure He has PVD, CHF, and ESRD. He is on Dialysis 3X weekly, and follows with Dr. Cannon. He is a Diabetic, and does not know his most recent HgA1c. They will need an updated HgA1c that is hopefully <8.1%, or at least close, to proceed with surgery, and they expressed understanding. The son says his diabetes is now well-controlled and his leg wound is beginning to heal now. At present there is no evidence of infection, the fingertips are not particularly painful and this condition appears relatively stable for the time being. Scribed for Beatriz Rosales MD by Rolando Mosqueda, medical appointment clerk, on 08/06/24 at 8:40 AM, EST. Coding Level of Care Code Est Pt Level 4 (85254) Diagnoses Necrosis of finger I96 Dry gangrene I96 Type 2 diabetes mellitus E11.9 Acute on chronic systolic and diastolic heart failure, NYHA class 3 I50.43 ESRD needing dialysis N18.6; Z99.2 Numbness and tingling in right hand R20.0; R20.2 PVD (peripheral vascular disease) I73.9
== END 2024-08-06 08:56 | disposition home or self-care (01) ==
LOC: HO.HOS 07:28
PROVIDERS: Visit Provider Orthopaedic Surgery
DX: I96 Gangrene, not elsewhere classified (principal); E11.9 Type 2 diabetes mellitus without complications; I50.43 Acute on chronic combined systolic (congestive) and diastolic (congestive) heart failure; N18.6 End stage renal disease; Z99.2 Dependence on renal dialysis; R20.0 Anesthesia of skin; R20.2 Paresthesia of skin; I73.9 Peripheral vascular disease, unspecified
CPT/HCPCS: 99214

== ENCOUNTER → 2024-08-06 07:27 | Outpatient (BNVA) | payer MEDICARE, MEDICAID, SELFPAY | PROVIDERS: Visit Provider Orthopaedic Surgery | DX: E11.52 Type 2 diabetes mellitus with diabetic peripheral angiopathy with gangrene (principal); I96 Gangrene, not elsewhere classified; E11.22 Type 2 diabetes mellitus with diabetic chronic kidney disease; I13.0 Hypertensive heart and chronic kidney disease with heart failure and stage 1 through stage 4 chronic kidney disease, or unspecified chronic kidney disease; I50.43 Acute on chronic combined systolic (congestive) and diastolic (congestive) heart failure; N18.6 End stage renal disease; R20.0 Anesthesia of skin; R20.2 Paresthesia of skin; Z99.2 Dependence on renal dialysis | CPT/HCPCS: 99212 ==

== ENCOUNTER 2024-08-20 09:35 | Outpatient (AMB) | payer MEDICARE, MEDICAID, SELFPAY ==
--- NOTE | 2024-08-20 09:44 | MHC.OFFVIS ---
Intake Visit Reasons: 3w wound check Intake Note: 2 week follow up Right AKA 06/06/24. Pt son changes dressing daily. Accompanied by: Self / Same As Patient Allergies Iodinated Contrast Media [Contrast Dye] Allergy (Severe, Verified 08/20/24 09:46) Facial Swelling hydralazine Adverse Reaction (Severe, Verified 08/20/24 09:46) vasculitis HPI HPI 3w wound check: Details: 69-year-old gentleman presents for evaluation regarding his nonhealing right AKA stump. In addition he does have a left great toe and left posterior calf dry ulcer. He has been doing fairly well. His biggest concern is his upper extremity digits at the current time. He now presents for routine follow-up. [facility] Medical History Above knee amputation of right lower extremity Left ventricular systolic dysfunction (LVSD) PVD (peripheral vascular disease) Postop check Acute pericardial effusion Right sided weakness Dehiscence of wound Peripheral arterial disease Dry gangrene Cellulitis of right foot HFrEF (heart failure with reduced ejection fraction) Chronic combined systolic and diastolic CHF (congestive heart failure) Chronic pericardial effusion Arthritis Asthma Restless leg syndrome Acute on chronic systolic and diastolic heart failure, NYHA class 3 Anemia Occlusive thrombus Pulmonary edema ROBERT (obstructive sleep apnea) Type 2 diabetes mellitus Hyperlipidemia Hypertension A-V fistula ESRD on dialysis Falling Surgical History Status post creation of pericardial window 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 Mother No problems noted. 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 Review of Systems Const All systems reviewed & are unremarkable except as noted in HPI and below Reports no additional complaints ENT Reports Normal hearing present Card Denies chest pain, Denies chest pain at rest, Denies chest pain with activity and Denies pedal edema Resp Denies cough GI Denies abdominal pain Musc Denies abnormal gait, Denies muscle cramps and Denies radiating pain into limb Skin/Breast Denies skin ulcer and Denies wounds Neuro Reports Normal hearing present and Denies abnormal gait Psych Reports no additional complaints Physical Exam Const General: cooperative, healthy appearing and comfortable Orientation/consciousness: oriented to person, oriented to place and oriented to time HEENT Head: Yes normal to inspection Neck Neck: Yes normal visual inspection Carotids: no bruits Chest Chest palpation & inspection: normal inspection of the chest Resp Effort & Inspection: normal respiratory effort and able to speak in complete sentences Auscultation: clear to auscultation bilaterally, no crackles, no rales, no rhonchi and no wheezes Cardio Other: Left-sided DP signals Rate: regular rate Rhythm: regular rhythm Heart sounds: S1 normal heart sound present and S2 normal heart sound present Bruits: no carotid bruits GI Inspection: Yes normal to inspection Skin Other: Left great toe and left posterior calf dry eschar. Wounds: amputation site (Right AKA stump ulcer down to 2.5 x 1.5 x 0.2 cm with clean granulation bas) and wounds noted Hair: normal Neuro General: oriented to person, oriented to place and oriented to time Cranial nerves: Yes CN's II-XII intact bilaterally and Yes Normal hearing present Cognition (Neuro): normal cognition Motor exam (neuro): 5/5 motor strength present throughout Extrem Other: venous exam: No significant superficial varicosities or spider telangiectasias, minimal edema General: No clubbing, No cyanosis and No edema Psych Appearance: grossly normal Mental Status: mental status grossly normal Speech and movement: Normal speech and movement present Assessment & Plan Assessment & Plan (1) PVD (peripheral vascular disease): Code(s): I73.9 - Peripheral vascular disease, unspecified Category: Medical Plan: In short the above knee amputation stump appears to be doing significantly better. Continue with local wound care. In terms of his left great toe and left posterior calf I have prescribed Silvadene dressings for that. He will follow up with [facility] regarding his upper extremity digits. He will follow up with us in approximately 4 weeks time for routine wound check. Thank you for allowing us to assist in his care. If there are any questions or concerns please do not hesitate to contact us. Coding Level of Care Code Est Pt Level 3 (85794) Complex EM visit Add On G2211 Diagnoses PVD (peripheral vascular disease) I73.9
--- OUTSIDE RECORDS SUMMARY | 2024-08-20 10:24 | XMS_ITS | Encounter Summary ---
Author Organization [facility] Address [address] [place] [address] Care Team Providers Care Sand Drier Name Role Phone Cass Turcios MD Primary Care Provider [phone] Encounter Details Date Type Department Care Team (Late st Contact Info) Description 06/06/2024 Lab Requisition [facility] - Main Lab [address] [facility] [place] [place] [address] Laurence Florence MD [address] [place] [id number] Cellulitis of right lower limb; End stage [...] Final Resu lt [facility] [address] [place] [address], [place] [phone] * (ABNORMAL) Complete blood count (06/06/2024 5:35 AM EDT) [facility] WBC 9.3 4.8 - 10.8 K/mcL LAB HEMETOLOGY METHOD 06/06/2024 8:35 AM EDT [facility] RBC 3.20(L) 4.50 - 5.50 M/mcL LAB HEMETOLOGY METHOD 06/06/2024 8:35 AM EDT [facility] Hemoglobin 7.6(L) 13.5 - 17.5 g/dL LAB HEMETOLOGY METHOD 06/06/2024 8:35 AM EDT [facility] Hematocrit 26.2(L) 42.0 - 54.0 % LAB HEMETOLOGY METHOD 06/06/2024 8:35 AM EDT [facility] MCV 80.9 79.0 - 98.0 FL LAB HEMETOLOGY METHOD 06/06/2024 8:35 AM EDT [facility] MCH 23.5(L) 27.0 - 32.0 pcg LAB HEMETOLOGY METHOD 06/06/2024 8:35 AM EDT [facility] MCHC 29.0(L) 32.0 - 37.0 g/dL LAB HEMETOLOGY METHOD 06/06/2024 8:35 AM EDT [facility] RDW 16.8(H) 11.0 - 15.0 % LAB HEMETOLOGY METHOD 06/06/2024 8:35 AM EDT [facility] Platelets 264 130 - 400 K/mcL LAB HEMETOLOGY METHOD 06/06/2024 8:35 AM EDT [facility] MPV 12.3(H) 7.0 - 11.0 FL LAB HEMETOLOGY METHOD 06/06/2024 8:35 AM EDT [facility] NRBC 0.0 <1.0 % LAB HEMETOLOGY METHOD 06/06/2024 8:35 AM EDT [facility] NRBC Absolute 0.00 <0.10 K/mcL LAB HEMETOLOGY METHOD 06/06/2024 8:35 AM EDT [facility] Blood Venous blood specimen / Unknown Venipuncture / Unknown 06/06/2024 5:35 AM EDT 06/06/2024 8:10 AM EDT us Laurence Florence MD LAB BLOOD ORDERABLES Final Resu lt [facility] [address] [place] [address], [place] [phone] documented in this encounter Visit Diagnoses Diagnosis Cellulitis of right lower limb End stage renal disease (CMS/HCC V24, CMS/HCC V28) End stage renal disease documented in this encounter Care Teams Sand Drier Relationship Specialty Start Date End Date Cass Turcios MD [address] [place] [address] [address] [place] [address] PCP - General Geriatric Medicine 04/02/24 documented as of this encounter
== END 2024-08-20 09:57 | disposition home or self-care (01) ==
LOC: HO.HVS 09:35
PROVIDERS: Visit Provider Surgery Vascular Surgery
DX: I73.9 Peripheral vascular disease, unspecified (principal)
CPT/HCPCS: 99213; G2211

== ENCOUNTER → 2024-08-20 09:35 | Outpatient (BNVA) | payer MEDICARE, MEDICAID, SELFPAY | PROVIDERS: Visit Provider Surgery Vascular Surgery | DX: I73.9 Peripheral vascular disease, unspecified (principal) | CPT/HCPCS: 99212 ==

== ENCOUNTER 2024-08-22 11:02 | Inpatient (IN) | payer MEDICARE, MEDICAID, SELFPAY ==
[2024-08-22] VITALS (10 sets, daily range): BP systolic 120–180; BP diastolic 56–114; PULSE 69–83; RESP 12–20; TEMP 36.3–36.9; O2SAT 93–98; BMI 28.3
--- NOTE | ~2024-08-22 | CT_ITS ---
EXAMINATION: CT HEAD WITHOUT CONTRAST CLINICAL INFORMATION: Significant twitching COMPARISON: August 24, 2024. TECHNIQUE: Contiguous axial imaging was performed from the skull base to vertex without intravenous administration of contrast. This CT examination was performed using dose optimization techniques as appropriate, variously including the following: *Automated exposure control *Adjustment of mA and/or kV according to patient size (this includes techniques or standardized protocols for targeted exams where dose is matched to indication/reason for exam; i.e. extremities or head) *Use of iterative reconstruction technique DLP: 802 mGy-cm FINDINGS: No acute intracranial hemorrhage, mass effect, midline shift, hydrocephalus or herniation. Bilateral multifocal patchy deep periventricular white matter hypodensities involving centrum semiovale and douglas radiata. Old lacunar infarcts, basal ganglia and extracapsular. Posterior cranial fossa contents demonstrated no acute hemorrhage or mass effect. Sellar/suprasellar region demonstrated no gross masses. Normal position of the cerebellar tonsils. There is extensive calcified plaques throughout the extracranial and intracranial arteries. Tympanic cavities are aerated. Air-fluid levels in the mastoid tips. No air-fluid levels in the paranasal sinuses. CT/CT head/brain wo IV con IMPRESSION: Small vessel occlusive disease. Extensive atherosclerosis disease, consider medical renal disease and more diabetes. No acute intracranial hemorrhage Electronically signed by: Douglas Lundberg MD 09/17/2024 09:33 AM EDT
--- NOTE | ~2024-08-22 | XR_ITS ---
EXAMINATION: XR HAND, RIGHT CLINICAL INFORMATION: infection to 2nd/3rd digits COMPARISON: June 11, 2024 TECHNIQUE: PA, lateral, and oblique views of the right hand. FINDINGS: There is diffuse low bone mineral density. There are extensive vascular arterial calcifications. There is amputation the third digit through the proximal metaphysis of the distal phalanx, new since the prior. There are rounded lucencies in the distal end of the remaining distal phalanx. There is partial loss or degloving of soft tissues distal to the PIP joint, greater on the radial side. There is soft tissue swelling involving the second and third digits. XR/XR hand RT min 3V IMPRESSION: Amputation through the distal phalanx of the third digit near the metaphysis. Lucency in the anterior distal end of the remaining bone could be related to osteomyelitis or trauma. Soft tissue swelling of the second third digits Osteopenia Extensive vascular calcifications. Electronically signed by: Braulio Ordoñez MD 08/22/2024 12:02 PM EDT
--- NOTE | ~2024-08-22 | XR_ITS ---
EXAMINATION: XR HAND, RIGHT CLINICAL INFORMATION: necrosis, pre-op COMPARISON: August 22, 2024 TECHNIQUE: PA, lateral, and oblique views of the right hand. FINDINGS: Since prior examination, there is been amputation of the third ray at the neck of the metacarpal. There has also been amputation of the second ray at the neck of the proximal phalanx. There is diffuse osteopenia and extensive vascular calcification. There is likely soft tissue swelling of the remaining fingers and hand. XR/XR hand RT min 3V IMPRESSION: Soft tissue swelling and interval amputation at the neck of the second proximal phalanx and neck of third metacarpal. Electronically signed by: Braulio Ordoñez MD 09/09/2024 12:30 PM EDT
--- NOTE | ~2024-08-22 | CT_ITS ---
CLINICAL HISTORY: encephalopathy CT head without contrast. COMPARISON: CT head dated 03/07/24 at 21:49 EST FINDINGS: The visualized paranasal sinuses are clear. Small amount of fluid present within the mastoid air cells bilaterally, [id number], similar to prior imaging. No calvarial fracture. Atherosclerotic intracranial vasculature. No evidence for mass or mass effect. No intracranial hemorrhage or abnormal extra-axial fluid collection. No CT evidence of acute infarct. The ventricles are proportional with the degree of mild global cerebral volume loss without evidence of hydrocephalus. Basilar cisterns are patent. There are periventricular areas of low attenuation compatible with mild white matter small vessel disease. Posterior fossa appears unremarkable. IMPRESSION: 1. No acute intracranial findings. This document has been electronically signed by: Gonzalo Senior MD on 08/24/2024 13:56:06
--- NOTE | 2024-08-22 11:18 | ED.GENADULT ---
HPI - General Adult General Chief complaint: General Medical Stated complaint: Pain in fingers Time Seen by Provider: 08/22/24 13:03 Source: patient and RN notes reviewed Mode of arrival: ambulatory Limitations: no limitations History of Present Illness ED Provider: Rahel Howard PA-C HPI narrative: This is a 69-year-old Togolese-speaking male, with a past medical history of hemo pericardium, hydralazine vasculitis, right BKA requiring AK, new diagnosis of seizure disorder, ESRD (dialysis Monday), diabetes, heart failure, hypertension, hyperlipidemia, chronic hypoxic respiratory failure on 2 L home O2, ROBERT on CPAP, who presents emergency department with concerns of 2nd and 3rd right digit pain. It was seen by Dr. Rosales, hand surgeon due to left necrosis of his middle finger, and was advised that amputation surgery this is likely the best course of action. There are awaiting that his hemoglobin A1c is less than 8.1 for better wound healing. He is scheduled to have amputation surgery on September 12. Patient reports that over the last several days he has had worsening pain. He does endorse subjective fevers, no chills. Denies any chest pain, shortness of breath, abdominal pain, nausea, vomiting or diarrhea. Denies taking any medications at home to treat his current symptoms. MD complaint: Right 2nd and 3rd digit pain Onset (ago): day(s) Severity: moderate Relieving factors: none Exacerbating factors: none Associated symptoms: denies other symptoms Treatments prior to arrival: none Related Data Home Medications ?Medication ?Instructions ?Recorded ?Confirmed allopurinol 100 mg tablet 100 mg PO MOWEFR@1600 04/19/22 08/22/24 atorvastatin 40 mg tablet 40 mg PO SUTUTHSA@0900 04/19/22 08/22/24 doxazosin 4 mg tablet 4 mg PO BEDTIME 04/19/22 08/22/24 furosemide 80 mg tablet 80 mg PO SUTUTHSA@0900 04/19/22 08/22/24 omeprazole 20 mg capsule,delayed 20 mg PO DAILY@0630 04/19/22 08/22/24 release aspirin 81 mg tablet,delayed 81 mg PO SUTUTHSA@0900 06/20/23 08/22/24 release pregabalin 75 mg capsule 75 mg PO TID 06/20/23 08/22/24 aspirin 81 mg tablet,delayed 81 mg PO MOWEFR@1600 04/05/24 08/22/24 release atorvastatin 40 mg tablet 40 mg PO MOWEFR@1600 04/05/24 08/22/24 fluticasone fur. 100 mcg-umeclid 1 inh inhalation DAILY 04/05/24 08/22/24 62.5 mcg-vilant 25 mcg inhalat.powder (Trelegy Ellipta) furosemide 80 mg tablet 80 mg PO MOWEFR@159904/05/24 08/22/24 losartan 25 mg tablet 25 mg PO MOWEFR@1600 04/05/24 08/22/24 losartan 25 mg tablet 25 mg PO SUTUTHSA@0900 04/05/24 08/22/24 insulin glargine 100 unit/mL (3 22 unit subcut BEDTIME 05/01/24 08/22/24 mL) subcutaneous pen (Lantus Solostar U-100 Insulin) acetaminophen 500 mg tablet 1,000 mg PO Q8H PRN Pain 05/26/24 08/22/24 amlodipine 10 mg tablet 10 mg PO DAILY 05/26/24 08/22/24 calcium carbonate (Calcium 500) 500 mg PO TID 05/26/24 08/22/24 carvedilol 12.5 mg tablet 12.5 mg PO BID 05/26/24 08/22/24 docusate sodium 100 mg capsule 100 mg PO DAILY 05/26/24 08/22/24 insulin lispro 100 unit/mL See Rx Instructions .Route .COMPLEX 05/26/24 08/22/24 subcutaneous solution (Humalog U-100 Insulin) albuterol sulfate 90 mcg/actuation 2 puff inhalation Q4H PRN wheezing 08/22/24 08/22/24 aerosol inhaler (Ventolin HFA) ipratropium 0.5 mg-albuterol 3 mg 3 ml inhalation QID PRN Shortness 08/22/24 08/22/24 (2.5 mg base)/3 mL nebulization Of Breath soln sucroferric oxyhydroxide 500 mg 500 mg PO TID 08/22/24 08/22/24 chewable tablet (Velphoro) Previous Rx's ?Medication ?Instructions ?Recorded PleurX catheter drainage kits #10 ea 10/17/23 Allergies Allergy/AdvReac Type Severity Reaction Status Date / Time Iodinated Contrast Media Allergy Severe Facial Verified 08/22/24 11:22 (Contrast Dye) Swelling hydralazine AdvReac Severe vasculitis Verified 08/22/24 11:22 Review of Systems Review of Systems: Yes all other systems are reviewed and are negative Constitutional: Constitutional: Reports as per [facility] Past Medical History Attestation statement: The following information was validated with the patient. Medical History Above knee amputation of right lower extremity Left ventricular systolic dysfunction (LVSD) PVD (peripheral vascular disease) Postop check Acute pericardial effusion Right sided weakness Dehiscence of wound Peripheral arterial disease Dry gangrene Cellulitis of right foot HFrEF (heart failure with reduced ejection fraction) Chronic combined systolic and diastolic CHF (congestive heart failure) Chronic pericardial effusion Arthritis Asthma Restless leg syndrome Acute on chronic systolic and diastolic heart failure, NYHA class 3 Anemia Occlusive thrombus Pulmonary edema ROBERT (obstructive sleep apnea) Type 2 diabetes mellitus Hyperlipidemia Hypertension A-V fistula ESRD on dialysis Falling Surgical History Status post creation of pericardial window Hx of right BKA History of transmetatarsal amputation of foot Status post transmetatarsal amputation of right foot Postop check History of surgery H/O colonoscopy Recurrent pleural effusion Pleural effusion on right (07/13/23) Family History Family History Father No problems noted. Mother No problems noted. Social History Social History Household Members: Children Household Members Other:: son Housing: Apartment Are you a primary care professional to a significant other at home: No Do you presently have visiting nurse or other home services: No Unable to assess alcohol history related to: Unknown Alcohol intake: former Comment: n Patient Tobacco Use Status: Former Tobacco user Tobacco use type: Cigarette Smoked in Last 30 Days: No Second Hand Smoke Exposure: No Use of substances other than those prescribed or required for medical reasons: No Advance Directives: Yes Advance Directives on File: Yes Advance Directives Date on File: 10/04/23 Do you have a plan to hurt others: No Plan service: No Current occupational status: disabled 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 Physical Exam ED Vital Signs: Vital Signs - 24 hr 08/22/24 11:19 08/22/24 14:23 08/22/24 15:05 Temperature 98.5 F 98.0 F Pulse Rate 82 83 82 Respiratory Rate 19 16 19 Blood Pressure 170/72 H 180/98 H 178/114 H Pulse Oximetry 93 94 97 Oxygen Delivery Method Room Air Room Air Nasal Cannula Oxygen Flow Rate 2 BMI result Body Mass Index 28.3 Const General: cooperative, comfortable and no acute distress Orientation/consciousness: patient oriented x3 Limitations: no limitations HENMT Head: Yes normal to inspection, Yes normocephalic and Yes atraumatic Ears: hearing grossly normal bilaterally General nose exam: Normal external nose present Face and sinus: Yes normal facial exam Mouth: Normal oral and palatal mucosa present, oropharynx normal and moist mucous membranes Throat: Yes posterior oropharynx normal Eyes General: appearance normal, both eyes and all related structures Eyelids: Yes eyelids normal Conjunctivae: conjunctivae normal Sclerae: sclerae normal Pupils: Equal, round and reactive pupils present EOM: EOMs intact bilaterally Neck Neck: Yes normal visual inspection, Yes full ROM and Yes no lymphadenopathy Lymphatic: no lymphadenopathy noted Chest Chest palpation & inspection: normal inspection of the chest Resp Effort & Inspection: normal respiratory effort and able to speak in complete sentences Auscultation: clear to auscultation bilaterally, no crackles, no rales, no rhonchi and no wheezes Cardio Rate: regular rate Rhythm: regular rhythm Heart sounds: S1 normal heart sound present and S2 normal heart sound present GI Inspection: Yes normal to inspection Skin General skin exam: no rashes or lesions noted Trauma: no lacerations or abrasions Wounds: no wounds Neuro General: patient oriented x3 and moves all extremities Cranial nerves: Yes Equal, round and reactive pupils present Extrem Other: Right 2nd and 3rd digit, with dry gangrene noted, at the DIP, faint erythema extending into the 4th and 5th digit, as well as the dorsum of the right hand. Strong radial pulse. General: Yes normal to inspection Right upper extremity: normal to inspection Left upper extremity: normal to inspection Right lower extremity: normal to inspection Left lower extremity: normal to inspection Course Course Course Narrative: 08/22/24 1120 KYLAH Caruso This is a Rapid Medical Examination (RME) performed by Sarah Winn PA-C in triage. Full HPI, ROS, assessment and treatment plan per primary provider in the Main ED. Hx: 69 yo M hx hydralazine vasculitis, ESRD on HD MWF, DM, PVD, CHF, HTN, HLD, ROBERT on CPAP, respiratory failure on 2L NC at home, s/p R BKA on 04/11/24 here w/ son/[employer] for eval of worsening infection to right 2nd/3rd digits. has surgery scheduled on 09/12/24. pt reports increasing pain extending to wrist, necrotic tissue, swelling. PE/vitals: +see photo below. no streaking. FROM intact to wrist. Plan: labs, inflammatory markers, xr Medications Administered Discontinued Medications Generic Name Dose Route Start Last Admin Trade Name Freq PRN Reason Stop Dose Admin Vancomycin HCl 2,000 mg in 500 mls @ 250 mls/hr 08/22/24 13:08 08/22/24 15:56 Vancomycin/Ns IV 08/22/24 15:07 250 mls/hr ONCE ONE Administration Piperacillin Sod/Tazobactam 100 mls @ 200 mls/hr 08/22/24 13:38 08/22/24 15:56 Sod 4.5 gm/ Sodium Chloride IV 08/22/24 14:07 Infused ONCE ONE Infusion Acetaminophen 1,000 mg in 100 mls @ 400 mls/hr 08/22/24 14:38 08/22/24 15:55 Ofirmev IV 08/22/24 14:52 Infused ONCE ONE Infusion Medical Decision Making Medical Decision Making MDM Narrative: This is a 69-year-old Togolese-speaking male, with a past medical history of hemo pericardium, hydralazine vasculitis, right BKA requiring AK, new diagnosis of seizure disorder, ESRD, diabetes, failure, hypertension, hyperlipidemia, chronic hypoxic respiratory failure on 2 L home O2, ROBERT on CPAP, who presents emergency department with concerns of 2nd and 3rd right digit pain. On arrival, patient hypertensive at 170/72, all other vital signs within normal limits. He is nontoxic appearing. Speaking in full sentences. Patient with obvious dry gangrene, requiring admission as patient is starting to have increased cellulitis and pain. Will obtain labs, x-ray. Lactic and blood cultures also ordered. Plan: Labs, Xray, IV ABX Course: Discussed case with orthopedic PAJazzmine - they will follow during admission. Given patient having worsening cellulitis, and dry gangrene, patient needs to be admitted for IV antibiotics with close follow-up. He also is on dialysis therefore this needs to be arranged as well. Discussed with pharmacist for coverage of osteomyelitis and concern for end-stage renal disease, they still recommend Zosyn, and vancomycin, they will adjust accordingly. Will admit to the medical service for IV antibiotics and further treatment. Differential Diagnosis Differential Diagnoses: The differential diagnosis associated with the presentation includes Osteomyelitis, cellulitis, gangrene Admission/Observation Consideration of admission/observation: Escalation of care including admission/observation considered Consult Healthcare Provider Management of the patient was discussed with: Therapy Site Coordinator tamara Cardona PA-C Lab Data MDM Lab Attestation statement: I reviewed the patient's lab results. See MDM and course 08/22/24 11:41 08/22/24 11:41 Labs: Lab Results 08/22/24 08/22/24 Range/Units 11:41 14:20 WBC 16.3 H (4.8-10.8) X10*3/uL RBC 4.98 D (4.60-5.80) X10*6/uL Hgb 11.4 L (14.0-18.0) g/dl Hct 37.1 L (42.0-52.0) % MCV 74.5 L (80.0-98.0) fL MCH 22.9 L (27.0-33.0) pg MCHC 30.7 L (31.0-36.0) g/dl RDW 19.9 H (11.0-16.0) % Plt Count 194 (160-400) X10*3/uL MPV Not Reportable Immature Gran % (Auto) 0.4 (0.0-0.4) % Neut % (Auto) 86.4 H (45-73) % Lymph % (Auto) 7.2 L (20-40) % Hanson % (Auto) 5.5 (2-11) % Eos % (Auto) 0.3 (0-4) % Baso % (Auto) 0.2 (0-2) % Lymph # (Auto) 1.2 (1.2-4.9) X10*3/uL Hanson # (Auto) 0.9 (0.1-1.2) X10*3/uL Eos # (Auto) 0.1 (0.0-0.4) X10*3/uL Baso # (Auto) 0.0 (0.0-0.2) X10*3/uL Abs Immat Gran (auto) 0.07 H (0.00-0.03) X10*3/uL Absolute Neuts (auto) 14.1 H (2.0-8.3) x10*3/uL Absolute Nucleated RBC 0.030 H (0.0-0.012) X10*3/uL Nucleated RBC % (auto) 0.2 (0.0-0.2) /100WBC Sodium 137 (135-145) mmol/L Potassium 5.0 (3.3-5.1) mmol/L Chloride 96 (96-108) mmol/L Carbon Dioxide 27 (22-29) mmol/L Anion Gap 19 (12-20) BUN 54 H (9-16) mg/dL Creatinine 6.03 H* (0.5-1.4) mg/dL Estim Creat Clear Calc 10.8 Estimated GFR 9 Random Glucose 392 H* (60-115) mg/dL Lactic Acid 1.6 (0.5-2.0) mmol/L Calcium 8.6 (8.4-10.2) mg/dL Magnesium 1.6 (1.6-2.6) mg/dL Total Bilirubin 0.5 (0.0-1.0) mg/dL AST 23 (5-37) U/L ALT 24 (0-40) U/L Alkaline Phosphatase 159 H (39-117) U/L C-Reactive Protein 16.41 H (< or = 0.50) mg/dL Total Protein 7.1 (6.5-8.0) g/dL Albumin 3.5 (3.5-5.0) g/dL Radiology Impression Discussion of test interpretation with radiology: I have reviewed the radiologist's reading. Radiologist Impression: [address] [address] XRay Report Signed Patient: Beau Marie MR#: [id number] : 1955 Acct:[id number] Age/Sex: 69 / M ADM Date: 08/22/24 Loc: HO.ED Attending Dr: Ordering Physician: Carrie Winn Date of Service: 08/22/24 Procedure(s): XR hand RT min 3V Accession Number(s): [id number] cc: Carrie Winn~ EXAMINATION: XR HAND, RIGHT CLINICAL INFORMATION: infection to 2nd/3rd digits COMPARISON: June 11, 2024 TECHNIQUE: PA, lateral, and oblique views of the right hand. FINDINGS: There is diffuse low bone mineral density. There are extensive vascular arterial calcifications. There is amputation the third digit through the proximal metaphysis of the distal phalanx, new since the prior. There are rounded lucencies in the distal end of the remaining distal phalanx. There is partial loss or degloving of soft tissues distal to the PIP joint, greater on the radial side. There is soft tissue swelling involving the second and third digits. XR/XR hand RT min 3V IMPRESSION: Amputation through the distal phalanx of the third digit near the metaphysis. Lucency in the anterior distal end of the remaining bone could be related to osteomyelitis or trauma. Soft tissue swelling of the second third digits Osteopenia Extensive vascular calcifications. Electronically signed by: Braulio Ordoñez MD 08/22/2024 12:02 PM EDT Dictated By: Braulio Ordoñez MD Critical Care Time Critical Care Time Critical Care Time: Yes Total Critical Care Time: 32 Attestation: I have personally provided critical care time exclusive of time spent on separately billable procedures. Time includes review of lab data, radiology results, discussion with consultants, and monitoring for potential decompensation. Intervention performed as documented. Discharge Plan Discharge Clinical Impression: Dry gangrene, Cellulitis
[2024-08-22 11:45] LABS: MANUAL DIFF FLAG NO
[2024-08-22 11:50] LABS: Hematocrit 37.1 % (42.0-52.0); Hemoglobin 11.4 g/dl (14.0-18.0); Imm Gran Abs Auto 0.07 X10*3/uL (0.00-0.03); Imm Gran Pct Auto 0.4 % (0.0-0.4); Lymphocytes Absolute Auto 1.2 X10*3/uL (1.2-4.9); Mean Corpuscular HGB Conc 30.7 g/dl (31.0-36.0); Mean Corpuscular Hemoglobin 22.9 pg (27.0-33.0); Mean Corpuscular Volume 74.5 fL (80.0-98.0); NRBC Abs Auto 0.030 X10*3/uL (0.0-0.012); NRBC Pct Auto 0.2 /100WBC (0.0-0.2); Platelet Count 194 X10*3/uL (160-400); Red Blood Count 4.98 X10*6/uL (4.60-5.80); White Blood Count 16.3 X10*3/uL (4.8-10.8)
[2024-08-22 12:07] LABS: Alanine Aminotransferase 24 U/L (0-40); Albumin Level 3.5 g/dL (3.5-5.0); Alkaline Phosphatase 159 U/L (39-117); Anion Gap 19 (12-20); Aspartate Amino Transferase 23 U/L (5-37); Blood Urea Nitrogen 54 mg/dL (9-16); Calcium 8.6 mg/dL (8.4-10.2); Carbon Dioxide 27 mmol/L (22-29); Chloride 96 mmol/L (96-108); Creatinine Clr Calc Pharmacy 10.8; Estimated Glomerular Filt Rate 9; Magnesium 1.6 mg/dL (1.6-2.6); Potassium 5.0 mmol/L (3.3-5.1); Sodium 137 mmol/L (135-145); Total Protein 7.1 g/dL (6.5-8.0)
--- OUTSIDE RECORDS SUMMARY | 2024-08-22 13:11 | XMS_ITS | Encounter Summary ---
Author Organization [facility] Address [address] [place] [address] Care Team Providers Care Software Developer Name Role Phone Cass Turcios MD Primary Care Provider [phone] Encounter Details Date Type Department Care Team (Late st Contact Info) Description 06/06/2024 Lab Requisition [facility] - Main Lab [address] [facility] [place] [address] Laurence Florence MD [address] [place] [id number] Cellulitis of right lower limb; End stage [...] mmol/L LAB CHEMISTRY METHOD 06/06/2024 8:59 AM [facility] Potassium 4.3 3.5 - 5.5 mmol/L LAB CHEMISTRY METHOD 06/06/2024 8:59 AM [facility] Chloride 106 96 - 110 mmol/L LAB CHEMISTRY METHOD 06/06/2024 8:59 AM [facility] CO2 27 21 - 32 mmol/L LAB CHEMISTRY METHOD 06/06/2024 8:59 AM [facility] Anion Gap 6 3 - 11 LAB CHEMISTRY METHOD 06/06/2024 8:59 AM [facility] Glucose 162(H) 70 - 100 mg/dL LAB CHEMISTRY METHOD 06/06/2024 8:59 AM [facility] BUN 28(H) 5 - 25 mg/dL LAB CHEMISTRY METHOD 06/06/2024 8:59 AM [facility] Creatinine 3.78(H) 0.70 - 1.30 mg/dL LAB CHEMISTRY METHOD 06/06/2024 8:59 AM [facility] eGFR 17(L) >=60 mL/min/1. 73m2 LAB CHEMISTRY METHOD 06/06/2024 8:59 AM [facility] Comment:Calculation based on the Chronic Kidney Disease Epidemiology Collaboration (CKD-EPI) equation refit without adjustment for race. BUN/Creatinine Ratio 7.4 LAB CHEMISTRY METHOD 06/06/2024 8:59 AM [facility] Calcium 9.1 8.5 - 10.5 mg/dL LAB CHEMISTRY METHOD 06/06/2024 8:59 AM [facility] Blood Venous blood specimen / Unknown Venipuncture / Unknown 06/06/2024 5:35 AM EDT 06/06/2024 8:10 AM EDT us Laurence Florence MD LAB BLOOD ORDERABLES Final Resu lt [facility] [address] [place] [address], [place] [phone] * (ABNORMAL) Complete blood count (06/06/2024 5:35 AM EDT) WBC 9.3 4.8 - 10.8 K/mcL LAB HEMETOLOGY METHOD 06/06/2024 8:35 AM EDT [facility] RBC 3.20(L) 4.50 - 5.50 M/mcL LAB HEMETOLOGY METHOD 06/06/2024 8:35 AM EDT [facility] Hemoglobin 7.6(L) 13.5 - 17.5 g/dL LAB HEMETOLOGY METHOD 06/06/2024 8:35 AM EDT [facility] Hematocrit 26.2(L) 42.0 - 54.0 % LAB HEMETOLOGY METHOD 06/06/2024 8:35 AM EDT [facility] MCV 80.9 79.0 - 98.0 FL LAB HEMETOLOGY METHOD 06/06/2024 8:35 AM EDT [facility] MCH 23.5(L) 27.0 - 32.0 pcg LAB HEMETOLOGY METHOD 06/06/2024 8:35 AM EDT [facility] MCHC 29.0(L) 32.0 - 37.0 g/dL LAB HEMETOLOGY METHOD 06/06/2024 8:35 AM EDT [facility] RDW 16.8(H) 11.0 - 15.0 % LAB HEMETOLOGY METHOD 06/06/2024 8:35 AM EDT [facility] Platelets 264 130 - 400 K/mcL LAB HEMETOLOGY METHOD 06/06/2024 8:35 AM EDT [facility] MPV 12.3(H) 7.0 - 11.0 FL LAB HEMETOLOGY METHOD 06/06/2024 8:35 AM EDT [facility] NRBC 0.0 <1.0 % LAB HEMETOLOG METHOD 06/06/2024 8:35 AM EDT [facility] NRBC Absolute 0.00 <0.10 K/mcL LAB HEMETOLOGY METHOD 06/06/2024 8:35 AM EDT [facility] Blood Venous blood specimen / Unknown Venipuncture / Unknown 06/06/2024 5:35 AM EDT 06/06/2024 8:10 AM EDT us Laurence Florence MD LAB BLOOD ORDERABLES Final Resu lt [facility] [address] [place] [address], documented in this encounter Visit Diagnoses Diagnosis Cellulitis of right lower limb End stage renal disease (CMS/HCC V24, CMS/HCC V28) End stage renal disease documented in this encounter Care Teams Software Developer Relationship Specialty Start Date End Date Cass Turcios MD [address] [place] [id number] [address] [place] [address] PCP - General Geriatric Medicine 04/02/24 documented as of this encounter
--- NOTE | 2024-08-22 15:52 | PM.IMHP ---
History of Present Illness Date of Service: 08/23/24 Chief Complaint: Fingers necrosis 69M PMH significant for?ESRD on HD M/W/F, insulin-dependent type 2 diabetes, peripheral vascular disease, s/p right BKA 2/ by Dr. Cannon, seizure disorder, HFrEF, HTN, HLD, chronically on 2L home O2, GERD, and ROBERT on CPAP who presented to the ED with?worsening pain in his left hand with 3rd and index fingers dry gangrene. patient reporting worsening pain and extending gangrene in both of the fingers. he was supposed to get amputation 2 weeks ago but could not get it done. No chest pain, palpitations, SOB, nausea, vomiting, diarrhea or urinary symptoms. Admitted for IV antibiotics per Hand surgeon and close monitoring Review of Systems Review of Systems: No fever, chills or weakness No chest pain, palpitation No shortness of breath or coughing No abdominal pain, nausea or vomiting No urinary symptoms No any rash or wounds Pain in fingers PMFSH Medical History Above knee amputation of right lower extremity Left ventricular systolic dysfunction (LVSD) PVD (peripheral vascular disease) Postop check Acute pericardial effusion Right sided weakness Dehiscence of wound Peripheral arterial disease Dry gangrene Cellulitis of right foot HFrEF (heart failure with reduced ejection fraction) Chronic combined systolic and diastolic CHF (congestive heart failure) Chronic pericardial effusion Arthritis Asthma Restless leg syndrome Acute on chronic systolic and diastolic heart failure, NYHA class 3 Anemia Occlusive thrombus Pulmonary edema ROBERT (obstructive sleep apnea) Type 2 diabetes mellitus Hyperlipidemia Hypertension A-V fistula ESRD on dialysis Falling Family History Father No problems noted. Mother No problems noted. Surgical History Status post creation of pericardial window Hx of right BKA History of transmetatarsal amputation of foot Status post transmetatarsal amputation of right foot Postop check History of surgery H/O colonoscopy Recurrent pleural effusion Pleural effusion on right (07/13/23) Social History Household Members: Family Household Members Other:: son Housing: House Are you a primary point of care technician to a significant other at home: No Do you presently have visiting nurse or other home services: Yes ([facility] and [employer] (son) everyday) Unable to assess alcohol history related to: Unknown Alcohol intake: former Comment: n Patient Tobacco Use Status: Former Tobacco user Tobacco use type: Cigarette Second Hand Smoke Exposure: No Advance Directives Date on File: 10/04/23 service: No Current occupational status: disabled 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 Meds Allergies Allergy/AdvReac Type Severity Reaction Status Date / Time Iodinated Contrast Media Allergy Severe Facial Verified 08/22/24 11:22 (Contrast Dye) Swelling hydralazine AdvReac Severe vasculitis Verified 08/22/24 11:22 Home Medications ?Medication ?Instructions ?Recorded ?Confirmed ?Last Taken ?Type allopurinol 100 mg tablet 100 mg PO MOWEFR@1600 04/19/22 08/22/24 08/21/24 History atorvastatin 40 mg tablet 40 mg PO SUTUTHSA@0900 04/19/22 08/22/24 08/21/24 History doxazosin 4 mg tablet 4 mg PO BEDTIME 04/19/22 08/22/24 08/21/24 History furosemide 80 mg tablet 80 mg PO SUTUTHSA@0900 04/19/22 08/22/24 08/21/24 History omeprazole 20 mg capsule,delayed 20 mg PO DAILY@0630 04/19/22 08/22/24 08/21/24 History release aspirin 81 mg tablet,delayed 81 mg PO SUTUTHSA@0900 06/20/23 08/22/24 08/21/24 History release pregabalin 75 mg capsule 75 mg PO DAILY 06/20/23 08/22/24 08/21/24 History aspirin 81 mg tablet,delayed 81 mg PO MOWEFR@1600 04/05/24 08/22/24 08/21/24 History release atorvastatin 40 mg tablet 40 mg PO MOWEFR@159904/05/24 08/22/24 08/21/24 History fluticasone fur. 100 mcg-umeclid 1 inh inhalation DAILY 04/05/24 08/22/24 08/21/24 History 62.5 mcg-vilant 25 mcg inhalat.powder (Trelegy Ellipta) furosemide 80 mg tablet 80 mg PO MOWEFR@1600 04/05/24 08/22/24 08/21/24 History losartan 25 mg tablet 25 mg PO MOWEFR@1600 04/05/24 08/22/24 08/21/24 History losartan 25 mg tablet 25 mg PO SUTUTHSA@0900 04/05/24 08/22/24 08/21/24 History insulin glargine 100 unit/mL (3 22 unit subcut BEDTIME 05/01/24 08/22/24 08/21/24 History mL) subcutaneous pen (Lantus Solostar U-100 Insulin) acetaminophen 500 mg tablet 1,000 mg PO Q8H PRN Pain 05/26/24 08/22/24 Unknown History amlodipine 10 mg tablet 10 mg PO DAILY 05/26/24 08/22/24 08/21/24 History calcium carbonate (Calcium 500) 500 mg PO TID 05/26/24 08/22/24 08/21/24 History docusate sodium 100 mg capsule 100 mg PO DAILY 05/26/24 08/22/24 08/21/24 History insulin lispro 100 unit/mL See Rx Instructions .Route .COMPLEX 05/26/24 08/22/24 08/21/24 History subcutaneous solution (Humalog U-100 Insulin) albuterol sulfate 90 mcg/actuation 2 puff inhalation Q4H PRN wheezing 08/22/24 08/22/24 Unknown History aerosol inhaler (Ventolin HFA) carvedilol 6.25 mg tablet 6.25 mg PO BID 08/22/24 08/22/24 Unknown History ipratropium 0.5 mg-albuterol 3 mg 3 ml inhalation QID PRN Shortness 08/22/24 08/22/24 08/21/24 History (2.5 mg base)/3 mL nebulization Of Breath soln sucroferric oxyhydroxide 500 mg 500 mg PO TID 08/22/24 08/22/24 08/21/24 History chewable tablet (Velphoro) Physical Exam Vital Signs and Narrative: Vital Signs: Last Vital Signs Temp 98.0 F 08/22/24 15:05 Pulse 82 08/22/24 15:05 Resp 19 08/22/24 15:05 BP 178/114 H 08/22/24 15:05 Pulse Ox 97 08/22/24 15:05 O2 Del Method Nasal Cannula 08/22/24 15:05 O2 Flow Rate 2 08/22/24 15:05 BMI result Body Mass Index 28.3 Const: Other: General resting in bed,in no acute distress. Neck supple no JVD, no distended neck veins. CVS regular rate rhythm, Respiratory lungs clear to auscultation, diminished, no respiratory distress, no wheeze, no rhonchi. Gastrointestinal abdomen soft, non tender, bowel sounds audible Extremities right and left BKA , left index and 3rd toe necrosis on tip of fingers extending to MIP with cold fingers. no significant erythema Neuro non focal , speech clear Results Labs 08/23/24 06:33 08/22/24 11:41 Labs: Laboratory Results - last 24 hr 08/22/24 08/22/24 11:41 14:20 MCV 74.5 L MCH 22.9 L MCHC 30.7 L RDW 19.9 H Plt Count 194 MPV Not Reportable Immature Gran % (Auto) 0.4 Neut % (Auto) 86.4 H Lymph % (Auto) 7.2 L [place] % (Auto) 5.5 Eos % (Auto) 0.3 Baso % (Auto) 0.2 Lymph # (Auto) 1.2 [place] # (Auto) 0.9 Eos # (Auto) 0.1 Baso # (Auto) 0.0 Abs Immat Gran (auto) 0.07 H Absolute Neuts (auto) 14.1 H Absolute Nucleated RBC 0.030 H Nucleated RBC % (auto) 0.2 Anion Gap 19 Estim Creat Clear Calc 10.8 Estimated GFR 9 Random Glucose 392 H* Lactic Acid 1.6 Calcium 8.6 Magnesium 1.6 Total Bilirubin 0.5 AST 23 ALT 24 Alkaline Phosphatase 159 H C-Reactive Protein 16.41 H Total Protein 7.1 Albumin 3.5 Imaging Radiologist's Impressions: Impressions Hand X-Ray 08/22/24 10:47 IMPRESSION: Amputation through the distal phalanx of the third digit near the metaphysis. Lucency in the anterior distal end of the remaining bone could be related to osteomyelitis or trauma. Soft tissue swelling of the second third digits Osteopenia Extensive vascular calcifications. Electronically signed by: Braulio Ordoñez MD 08/22/2024 12:02 PM EDT Assessment and Plan (1) Necrosis of finger: Status: Acute (2) Numbness and tingling in right hand: Status: Acute (3) ESRD needing dialysis: Status: Acute Plan 69M PMH significant for?ESRD on HD M/W/F, insulin-dependent type 2 diabetes, peripheral vascular disease, s/p right BKA 04/[address] Cannon, seizure disorder, HFrEF, HTN, HLD, chronically on 2L home O2, GERD, and ROBERT on CPAP who presented to the ED with?worsening pain in his right hand with 3rd and 4th fingers dry gangrene. Right hand ischemic changes, 3rd and 4th fingers not septic Hand XR showing Amputation through the distal phalanx of the third digit near the metaphysis. Lucency in the anterior distal end of the remaining bone could be related to osteomyelitis or trauma. suspected infection per hand surgery and OM IV Vancomycin Orthopedic evaluation recommend next week ambutation Mon\Mon after discussing with Dr Witt vancomycin trough Uncontrolled HTN Continue losartan, Amlodipine Doxazosin Chronic hypoxic respiratory failure on 2 L of home oxygen/obstructive sleep apnea on CPAP No acute hypoxia. ESRD on HD M/W/F Continue Velphoro, Lasix nephro consulted Insulin-dependent type 2 diabetes continue Sliding-scale insulin, Lantus 20 units at bedtime Diabetic diet Seizure disorder Continue Keppra HLD/PAD aspirin Peripheral neuropathy Continue pregabalin DVT Prophylaxis: hep sq reason for continued hospitalization: Finger ischemia and infection ORthopedic surgery intervention early next week and continue IV antibiotics Quality Stroke Does the patient have a stroke diagnosis?: No VTE Prior VTE?: No VTE Risk Level:: Medical - moderate - high VTE Device Contraindication: Treatment Not Indicated VTE Drug Contraindication: N/A - Med Ordered
[2024-08-22] MEDS: vancomycin/NS 2,000 MG/500 ML PLAST..BAG 250 MG IV (15:56)
[2024-08-22 16:11] LABS: Glucose, Whole Blood 381 mg/dL (60-115)
--- NOTE | 2024-08-22 16:32 | PHA.MEDREC ---
Addendum entered by Lily Perez RPh 08/22/24 17:18: [facility] Original Note: Pharmacy Consult ? Medication Reconciliation Pharmacy has completed the medication reconciliation. Patient is a poor historian. Spoke to patient lorena Baez over the phone to confirm med list. Son was able to confirm all of patients medications. Son confirmed Lantus 22 unitsat bedtime and Humalog is TID per sliding scale. Patient last had his medications yesterday.
[2024-08-22 17:16] LABS: Glucose, Whole Blood 405 mg/dL (60-115)
[2024-08-22 18:54] LABS: Glucose, Whole Blood 179 mg/dL (60-115)
[2024-08-22 21:09] LABS: Glucose, Whole Blood 82 mg/dL (60-115)
--- NOTE | 2024-08-22 21:13 | MHC.EDTECH ---
Ray RN made aware of Pts POC (82) and stated to offer Pt some food. I offered Pt a sandwich and juice. Pt declined sandwich, had 2 crackers and 2 cups of juice before stating he did not want anymore.
[2024-08-23] VITALS (10 sets, daily range): BP systolic 116–176; BP diastolic 57–90; PULSE 68–88; RESP 14–20; TEMP 36.3–37.2; O2SAT 92–100; BMI 27.3
--- NOTE | 2024-08-23 00:16 | PC.NURSE ---
both insulins held per KYLAH Vinson
[2024-08-23 02:51] LABS: Glucose, Whole Blood 184 mg/dL (60-115)
--- NOTE | 2024-08-23 04:31 | HO.SKINPHOTO ---
Location: L posterior calf Location: L great toe
[2024-08-23 07:03] LABS: Glucose, Whole Blood 192 mg/dL (60-115)
[2024-08-23] MEDS: 0.9 % Sodium Chloride Flush 3 ML SYRINGE IVFLUSH ×3 (07:11→20:00)
[2024-08-23] MEDS: oxyCODONE HCl Immed Release 5 MG TABLET PO (07:14)
[2024-08-23 07:16] LABS: Hematocrit 35.1 % (42.0-52.0); Hemoglobin 11.0 g/dl (14.0-18.0); Mean Corpuscular HGB Conc 31.3 g/dl (31.0-36.0); Mean Corpuscular Hemoglobin 23.1 pg (27.0-33.0); Mean Corpuscular Volume 73.6 fL (80.0-98.0); NRBC Abs Auto 0.020 X10*3/uL (0.0-0.012); NRBC Pct Auto 0.1 /100WBC (0.0-0.2); Platelet Count 183 X10*3/uL (160-400); Red Blood Count 4.77 X10*6/uL (4.60-5.80); White Blood Count 15.8 X10*3/uL (4.8-10.8)
[2024-08-23] MEDS: oxyCODONE HCl Immed Release 5 MG TABLET 10 MG PO ×4 (08:16→20:49)
[2024-08-23] MEDS: Fluticasone/Umeclidinium/Vilanterol 100/62.5/25 BLST.W.DEV 1 PUFF INHALE (08:23)
--- NOTE | 2024-08-23 08:53 | PM.CNOR ---
History of Present Illness HPI Consult date: 08/23/24 Chief complaint: gangrene Narrative: Patient is a 69-year-old male admitted to the hospital for necrosis of the left index and middle fingers Patient reports that these areas are painful, and frequently states, just cut them off? Patient reports that the necrosis has been worsening significantly from previous evaluations Denies any discharge No significant tenderness per the patient No significant redness No other acute complaints or concerns at this time Review of Systems Review of Systems: Yes all other systems are reviewed and are negative [facility] Past Medical History Medical History Above knee amputation of right lower extremity Left ventricular systolic dysfunction (LVSD) PVD (peripheral vascular disease) Postop check Acute pericardial effusion Right sided weakness Dehiscence of wound Peripheral arterial disease Dry gangrene Cellulitis of right foot HFrEF (heart failure with reduced ejection fraction) Chronic combined systolic and diastolic CHF (congestive heart failure) Chronic pericardial effusion Arthritis Asthma Restless leg syndrome Acute on chronic systolic and diastolic heart failure, NYHA class 3 Anemia Occlusive thrombus Pulmonary edema ROBERT (obstructive sleep apnea) Type 2 diabetes mellitus Hyperlipidemia Hypertension A-V fistula ESRD on dialysis Falling Family History Family History Father No problems noted. Mother No problems noted. Surgical History Surgical History Status post creation of pericardial window Hx of right BKA History of transmetatarsal amputation of foot Status post transmetatarsal amputation of right foot Postop check History of surgery H/O colonoscopy Recurrent pleural effusion Pleural effusion on right (07/13/23) Social History Social History Household Members: Family Household Members Other:: son Housing: House Are you a primary healthcare administrator to a significant other at home: No Do you presently have visiting nurse or other home services: Yes (VNA and [employer] (son) everyday) Unable to assess alcohol history related to: Unknown Alcohol intake: former Comment: n Patient Tobacco Use Status: Former Tobacco user Tobacco use type: Cigarette Second Hand Smoke Exposure: No Advance Directives Date on File: 10/04/23 service: No Current occupational status: disabled 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 Meds Allergies Allergy/AdvReac Type Severity Reaction Status Date / Time Iodinated Contrast Media Allergy Severe Facial Verified 08/22/24 11:22 (Contrast Dye) Swelling hydralazine AdvReac Severe vasculitis Verified 08/22/24 11:22 Active Medications: Current Medications Acetaminophen (Acetaminophen 325 Mg Tablet) 650 mg PO Q6H PRN PRN Reason: Pain, Mild 1-3,fever,headache Albuterol Sulfate (Albuterol Sulfate 90 Mcg 8 Gm Inhaler) 2 puff INHALE Q4H PRN PRN Reason: Wheezing Albuterol/Ipratropium (Albuterol/Iprat 2.5/0.5mg 3 Ml Ampul.Neb) 3 ml INHALE QID PRN PRN Reason: Shortness of Breath Allopurinol (Allopurinol 100 Mg Tablet) 100 mg PO MOWEFR@1600 [facility] Amlodipine Besylate (Amlodipine Besylate 10 Mg Tablet) 10 mg PO DAILY [facility]; Protocol Last Admin: 08/23/24 07:16 Dose: 10 mg Aspirin (Aspirin Enteric Coated 81 Mg Tablet.) 81 mg PO MOWEFR@1600 [facility] Aspirin (Aspirin Enteric Coated 81 Mg Tablet.) 81 mg PO SUTUTHSA@0900 [facility] Atorvastatin Calcium (Atorvastatin Calcium 40 Mg Tablet) 40 mg PO MOWEFR@1600 [facility] Atorvastatin Calcium (Atorvastatin Calcium 40 Mg Tablet) 40 mg PO SUTUTHSA@0900 [facility] Calcium Carbonate (Calcium Carbonate 750 Mg Tab.Chew) 750 mg PO Q4H PRN PRN Reason: Heartburn Carvedilol (Carvedilol 6.25 Mg Tablet) 6.25 mg PO BID [facility]; Protocol Last Admin: 08/23/24 08:16 Dose: 6.25 mg Docusate Sodium (Docusate Sodium 100 Mg Capsule) 100 mg PO DAILY [facility] Last Admin: 08/23/24 07:16 Dose: 100 mg Doxazosin Mesylate (Doxazosin Mesylate 2 Mg Tablet) 4 mg PO BEDTIME [facility]; Protocol Last Admin: 08/22/24 23:39 Dose: 4 mg Fluticasone/Umeclidinium/Vilanterol (Fluticasone/Umeclidinium/Vilanterol 100/62.5/25 Blst.W.Dev) 1 puff INHALE RDAILY [facility] Last Admin: 08/23/24 08:23 Dose: 1 puff Furosemide (Furosemide 40 Mg Tablet) 80 mg PO MOWEFR@1600 [facility]; Protocol Furosemide (Furosemide 40 Mg Tablet) 80 mg PO SUTUTHSA@0900 [facility]; Protocol Heparin Sodium (Porcine) (Heparin Sodium,Porcine 5,000 Unit/Ml Vial) 5,000 unit SUBCUT Q12H [facility] Last Admin: 08/23/24 05:48 Dose: 5,000 unit Vancomycin HCl 500 mg/ Sodium (Chloride) 110 mls @ 110 mls/hr IV ONCE ONE Stop: 08/23/24 20:59 Insulin Glargine (Insulin Glargine,Hum.Rec.Anlog 100 Unit/Ml 10 Ml Vial) 20 unit SUBCUT BEDTIME [facility] Last Admin: 08/23/24 00:16 Dose: Not Given Insulin Human Lispro (Insulin Lispro 100 Unit/Ml 3 Ml Vial) 0 unit SUBCUT QIDACHS [facility]; Protocol Last Admin: 08/23/24 07:15 Dose: 2 unit Levetiracetam (Levetiracetam 1,000 Mg Tablet) 1,000 mg PO BID [facility] Last Admin: 08/23/24 07:16 Dose: 1,000 mg Losartan Potassium (Losartan Potassium 25 Mg Tablet) 25 mg PO MOWEFR@1600 [facility]; Protocol Losartan Potassium (Losartan Potassium 25 Mg Tablet) 25 mg PO SUTUTHSA@0900 [facility]; Protocol Magnesium Hydroxide (Milk Of Magnesia 30 Ml Oral.Susp) 30 ml PO DAILY PRN PRN Reason: Constipation Melatonin (Melatonin 3 Mg Tablet) 6 mg PO BEDTIME PRN PRN Reason: Insomnia Morphine Sulfate (Morphine Sulfate 4 Mg/Ml Cartridge) 2 mg IVPUSH Q4H PRN; Protocol PRN Reason: Pain, Severe (Pain Scale 7-10) Last Admin: 08/23/24 04:36 Dose: 2 mg Omeprazole (Omeprazole 20 Mg Capsule.Dr) 20 mg PO DAILY@0630 [facility] Last Admin: 08/23/24 05:49 Dose: 20 mg Ondansetron HCl (Ondansetron Hcl 4 Mg/2 Ml Vial) 4 mg IVPUSH Q8H PRN PRN Reason: Nausea and Vomiting Oxycodone HCl (Oxycodone Hcl Immed Release 5 Mg Tablet) 10 mg PO Q6H PRN PRN Reason: Pain, Severe (Pain Scale 7-10) Pharmacy Consult (Consult Rx Vancomycin Dosing) 1 each MISCELLANE DAILY PRN PRN Reason: Consult order Pregabalin (Pregabalin 75 Mg Capsule) 75 mg PO DAILY [facility] Last Admin: 08/23/24 07:16 Dose: 75 mg Sodium Chloride (0.9 % Sodium Chloride Flush 3 Ml Syringe) 3 ml IVFLUSH [facility] Last Admin: 08/23/24 07:11 Dose: 3 ml Home Medications ?Medication ?Instructions ?Recorded ?Confirmed ?Last Taken ?Type allopurinol 100 mg tablet 100 mg PO MOWEFR@159904/19/22 08/22/24 08/21/24 History atorvastatin 40 mg tablet 40 mg PO SUTUTHSA@0900 04/19/22 08/22/24 08/21/24 History doxazosin 4 mg tablet 4 mg PO BEDTIME 04/19/22 08/22/24 08/21/24 History furosemide 80 mg tablet 80 mg PO SUTUTHSA@0900 04/19/22 08/22/24 08/21/24 History omeprazole 20 mg capsule,delayed 20 mg PO DAILY@0604/19/22 08/22/24 08/21/24 History release aspirin 81 mg tablet,delayed 81 mg PO SUTUTHSA@0900 06/20/23 08/22/24 08/21/24 History release pregabalin 75 mg capsule 75 mg PO DAILY 06/20/23 08/22/24 08/21/24 History aspirin 81 mg tablet,delayed 81 mg PO MOWEFR@159904/05/24 08/22/24 08/21/24 History release atorvastatin 40 mg tablet 40 mg PO MOWEFR@159904/05/24 08/22/24 08/21/24 History fluticasone fur. 100 mcg-umeclid 1 inh inhalation DAILY 04/05/24 08/22/24 08/21/24 History 62.5 mcg-vilant 25 mcg inhalat.powder (Trelegy Ellipta) furosemide 80 mg tablet 80 mg PO MOWEFR@159904/05/24 08/22/24 08/21/24 History losartan 25 mg tablet 25 mg PO MOWEFR@159904/05/24 08/22/24 08/21/24 History losartan 25 mg tablet 25 mg PO SUTUTHSA@0900 04/05/24 08/22/24 08/21/24 History insulin glargine 100 unit/mL (3 22 unit subcut BEDTIME 05/01/24 08/22/24 08/21/24 History mL) subcutaneous pen (Lantus Solostar U-100 Insulin) acetaminophen 500 mg tablet 1,000 mg PO Q8H PRN Pain 05/26/24 08/22/24 Unknown History amlodipine 10 mg tablet 10 mg PO DAILY 05/26/24 08/22/24 08/21/24 History calcium carbonate (Calcium 500) 500 mg PO TID 05/26/24 08/22/24 08/21/24 History docusate sodium 100 mg capsule 100 mg PO DAILY 05/26/24 08/22/24 08/21/24 History insulin lispro 100 unit/mL See Rx Instructions .Route .COMPLEX 05/26/24 08/22/24 08/21/24 History subcutaneous solution (Humalog U-100 Insulin) albuterol sulfate 90 mcg/actuation 2 puff inhalation Q4H PRN wheezing 08/22/24 08/22/24 Unknown History aerosol inhaler (Ventolin HFA) carvedilol 6.25 mg tablet 6.25 mg PO BID 08/22/24 08/22/24 Unknown History ipratropium 0.5 mg-albuterol 3 mg 3 ml inhalation QID PRN Shortness 08/22/24 08/22/24 08/21/24 History (2.5 mg base)/3 mL nebulization Of Breath soln sucroferric oxyhydroxide 500 mg 500 mg PO TID 08/22/24 08/22/24 08/21/24 History chewable tablet (Velphoro) Physical Exam Vital Signs: Vital Signs: Last Vital Signs Temp 98.4 F 08/23/24 07:00 Pulse 74 08/23/24 08:25 Resp 18 08/23/24 08:25 BP 170/86 H 08/23/24 07:00 Pulse Ox 95 08/23/24 07:00 O2 Del Method Nasal Cannula 08/23/24 07:00 O2 Flow Rate 2 08/23/24 07:00 BMI result Body Mass Index 27.3 Extrem: Other: Evaluation of Right Upper Extremity: The patient is alert, oriented, and in no acute distress Patient is resting comfortably med He is seen today with his adult son who speaks Bulgarian and Nepali and also was able to act as an director experimental medicine. A needle was also present act as an director experimental medicine. ROM: With encouragement he could bring his fingertips ~2cm from his palm, with his middle fingertip ~3cm from his palm He was able to bend at the middle finger PIP joint today Finger necrosis: Index finger: There has been significant increase in necrotic tissue since previous evaluation in our office. No evidence of healing. I do not believe he has the capability to heal this wound. He finds the finger to be painful. Middle finger: black mummification of the distal aspect of the finger, extending from the middle of the middle phalanx distally. There is also an area of necrotic skin on the dorsal aspect of the distal phalanx which does not appear to be healing. There is exposed bone noted that also appears to be necrotic No evidence of active infection. Results Labs 08/23/24 06:33 08/22/24 11:41 Labs: Abnormal lab results 08/22/24 08/22/24 08/22/24 Range/Units 11:41 16:08 17:11 WBC 16.3 H (4.8-10.8) X10*3/uL Hgb 11.4 L (14.0-18.0) g/dl Hct 37.1 L (42.0-52.0) % MCV 74.5 L (80.0-98.0) fL MCH 22.9 L (27.0-33.0) pg MCHC 30.7 L (31.0-36.0) g/dl RDW 19.9 H (11.0-16.0) % Neut % (Auto) 86.4 H (45-73) % Lymph % (Auto) 7.2 L (20-40) % Abs Immat Gran (auto) 0.07 H (0.00-0.03) X10*3/uL Absolute Neuts (auto) 14.1 H (2.0-8.3) x10*3/uL Absolute Nucleated RBC 0.030 H (0.0-0.012) X10*3/uL BUN 54 H (9-16) mg/dL Creatinine 6.03 H* (0.5-1.4) mg/dL POC Glucose 381 H* 405 H* (60-115) mg/dL Random Glucose 392 H* (60-115) mg/dL Alkaline Phosphatase 159 H (39-117) U/L C-Reactive Protein 16.41 H (< or = 0.50) mg/dL 08/22/24 08/23/24 08/23/24 Range/Units 18:49 02:46 06:33 WBC 15.8 H (4.8-10.8) X10*3/uL Hgb 11.0 L (14.0-18.0) g/dl Hct 35.1 L (42.0-52.0) % MCV 73.6 L (80.0-98.0) fL MCH 23.1 L (27.0-33.0) pg MCHC (31.0-36.0) g/dl RDW 19.4 H (11.0-16.0) % Neut % (Auto) (45-73) % Lymph % (Auto) (20-40) % Abs Immat Gran (auto) (0.00-0.03) X10*3/uL Absolute Neuts (auto) (2.0-8.3) x10*3/uL Absolute Nucleated RBC 0.020 H (0.0-0.012) X10*3/uL BUN (9-16) mg/dL Creatinine (0.5-1.4) mg/dL POC Glucose 179 H 184 H (60-115) mg/dL Random Glucose (60-115) mg/dL Alkaline Phosphatase (39-117) U/L C-Reactive Protein (< or = 0.50) mg/dL 08/23/24 Range/Units 06:55 WBC (4.8-10.8) X10*3/uL Hgb (14.0-18.0) g/dl Hct (42.0-52.0) % MCV (80.0-98.0) fL MCH (27.0-33.0) pg MCHC (31.0-36.0) g/dl RDW (11.0-16.0) % Neut % (Auto) (45-73) % Lymph % (Auto) (20-40) % Abs Immat Gran (auto) (0.00-0.03) X10*3/uL Absolute Neuts (auto) (2.0-8.3) x10*3/uL Absolute Nucleated RBC (0.0-0.012) X10*3/uL BUN (9-16) mg/dL Creatinine (0.5-1.4) mg/dL POC Glucose 192 H (60-115) mg/dL Random Glucose (60-115) mg/dL Alkaline Phosphatase (39-117) U/L C-Reactive Protein (< or = 0.50) mg/dL H & H 08/22/24 08/23/24 Range/Units 11:41 06:33 Hgb 11.4 L 11.0 L (14.0-18.0) g/dl Hct 37.1 L 35.1 L (42.0-52.0) % All other labs normal. Assessment and Plan (1) Necrosis of finger: Status: Acute Plan 1. Necrosis of left index and middle fingers No evidence of active ongoing infection No redness, minimal swelling, no discharge No acute orthopedic intervention indicated at this time Patient already follows up with our office, should follow-up upon discharge Patient states understanding of this Please re-consult with any further concerns Procedures Date of Service Date of Service: 08/23/24
[2024-08-23 10:55] LABS: Glucose, Whole Blood 174 mg/dL (60-115)
--- NOTE | 2024-08-23 11:55 | PM.CNNEP ---
History of Present Illness Reason for Consult Consult date: 08/23/24 Chief Complaint Chief complaint: gangrene History of Present Illness Narrative: 69 y/o male with a medical history of ESRD on HD M/W/F, insulin-dependent type 2 diabetes, peripheral vascular disease, s/p right BKA 04/[address] Cannon, seizure disorder, HFrEF, HTN, HLD, chronically on 2L home O2, GERD, and ROBERT on CPAP. Presented 08/22 with right digit pain- admitted for abx treatment of presumptive dry gangere of 2nd and 3rd digits on right hand. Nephrology consulted for dialysis management while inpatient. Patient reports he is tired but otherwise feeling well at bedside. Reports he has not missed any HD session and had his last session on Monday as scheduled Denies chest pain, shortness of breath, abdominal pain, nausea/vomiting, pruritus, tremors. Reports he is tired. Review of Systems Constitutional: Reports fatigue Cardiovascular: Denies chest pain, Denies leg edema, Denies lightheadedness and Denies dyspnea Respiratory: Denies dyspnea Gastrointestinal: Denies abdominal pain, Denies diarrhea, Denies nausea and Denies vomiting Genitourinary: Denies oliguria and Denies dysuria Musculoskeletal: Denies joint swelling Comments: pain in first and second digits of right hand Comments: 2nd and third digits of right upper extremity black/necrotic Denies tremor(s) Comments: no asterixis Endocrine: Reports fatigue PMFSH Past Medical History Medical History Above knee amputation of right lower extremity Left ventricular systolic dysfunction (LVSD) PVD (peripheral vascular disease) Postop check Acute pericardial effusion Right sided weakness Dehiscence of wound Peripheral arterial disease Dry gangrene Cellulitis of right foot HFrEF (heart failure with reduced ejection fraction) Chronic combined systolic and diastolic CHF (congestive heart failure) Chronic pericardial effusion Arthritis Asthma Restless leg syndrome Acute on chronic systolic and diastolic heart failure, NYHA class 3 Anemia Occlusive thrombus Pulmonary edema ROBERT (obstructive sleep apnea) Type 2 diabetes mellitus Hyperlipidemia Hypertension A-V fistula ESRD on dialysis Falling Family History Family History Father No problems noted. Mother No problems noted. Surgical History Surgical History Status post creation of pericardial window Hx of right BKA History of transmetatarsal amputation of foot Status post transmetatarsal amputation of right foot Postop check History of surgery H/O colonoscopy Recurrent pleural effusion Pleural effusion on right (07/13/23) Social History Social History Household Members: Family Household Members Other:: son Housing: House Are you a primary career representative to a significant other at home: No Do you presently have visiting nurse or other home services: Yes ([facility]NA and OFFICE PROFESSIONAL (son) everyday) Unable to assess alcohol history related to: Unknown Alcohol intake: former Comment: n Patient Tobacco Use Status: Former Tobacco user Tobacco use type: Cigarette Second Hand Smoke Exposure: No Advance Directives Date on File: 10/04/23 service: No Current occupational status: disabled 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 Meds Allergies Allergy/AdvReac Type Severity Reaction Status Date / Time Iodinated Contrast Media Allergy Severe Facial Verified 08/22/24 11:22 (Contrast Dye) Swelling hydralazine AdvReac Severe vasculitis Verified 08/22/24 11:22 Active Medications: Current Medications Acetaminophen (Acetaminophen 325 Mg Tablet) 650 mg PO Q6H PRN PRN Reason: Pain, Mild 1-3,fever,headache Albuterol Sulfate (Albuterol Sulfate 90 Mcg 8 Gm Inhaler) 2 puff INHALE Q4H PRN PRN Reason: Wheezing Albuterol/Ipratropium (Albuterol/Iprat 2.5/0.5mg 3 Ml Ampul.Neb) 3 ml INHALE QID PRN PRN Reason: Shortness of Breath Allopurinol (Allopurinol 100 Mg Tablet) 100 mg PO MOWEFR@1600 [facility] Amlodipine Besylate (Amlodipine Besylate 10 Mg Tablet) 10 mg PO DAILY [facility]; Protocol Last Admin: 08/23/24 07:16 Dose: 10 mg Aspirin (Aspirin Enteric Coated 81 Mg Tablet.) 81 mg PO MOWEFR@1600 [facility] Aspirin (Aspirin Enteric Coated 81 Mg Tablet.) 81 mg PO SUTUTHSA@0900 [facility] Atorvastatin Calcium (Atorvastatin Calcium 40 Mg Tablet) 40 mg PO MOWEFR@1600 [facility] Atorvastatin Calcium (Atorvastatin Calcium 40 Mg Tablet) 40 mg PO SUTUTHSA@0900 [facility] Calcium Carbonate (Calcium Carbonate 750 Mg Tab.Chew) 750 mg PO Q4H PRN PRN Reason: Heartburn Carvedilol (Carvedilol 6.25 Mg Tablet) 6.25 mg PO BID [facility]; Protocol Last Admin: 08/23/24 08:16 Dose: 6.25 mg Docusate Sodium (Docusate Sodium 100 Mg Capsule) 100 mg PO DAILY [facility] Last Admin: 08/23/24 07:16 Dose: 100 mg Doxazosin Mesylate (Doxazosin Mesylate 2 Mg Tablet) 4 mg PO BEDTIME [facility]; Protocol Last Admin: 08/22/24 23:39 Dose: 4 mg Fluticasone/Umeclidinium/Vilanterol (Fluticasone/Umeclidinium/Vilanterol 100/62.5/ Blst.W.Dev) 1 puff INHALE RDAILY [facility] Last Admin: 08/23/24 08:23 Dose: 1 puff Furosemide (Furosemide 40 Mg Tablet) 80 mg PO MOWEFR@1600 [facility]; Protocol Furosemide (Furosemide 40 Mg Tablet) 80 mg PO SUTUTHSA@0900 [facility]; Protocol Heparin Sodium (Porcine) (Heparin Sodium,Porcine 5,000 Unit/Ml Vial) 5,000 unit SUBCUT Q12H [facility] Last Admin: 08/23/24 05:48 Dose: 5,000 unit Vancomycin HCl 500 mg/ Sodium (Chloride) 110 mls @ 110 mls/hr IV ONCE ONE Stop: 08/23/24 20:59 Insulin Glargine (Insulin Glargine,Hum.Rec.Anlog 100 Unit/Ml 10 Ml Vial) 20 unit SUBCUT BEDTIME [facility] Last Admin: 08/23/24 00:16 Dose: Not Given Insulin Human Lispro (Insulin Lispro 100 Unit/Ml 3 Ml Vial) 0 unit SUBCUT QIDACHS [facility]; Protocol Last Admin: 08/23/24 11:44 Dose: 2 unit Levetiracetam (Levetiracetam 1,000 Mg Tablet) 1,000 mg PO BID [facility] Last Admin: 08/23/24 07:16 Dose: 1,000 mg Losartan Potassium (Losartan Potassium 25 Mg Tablet) 25 mg PO MOWEFR@1600 [facility]; Protocol Losartan Potassium (Losartan Potassium 25 Mg Tablet) 25 mg PO SUTUTHSA@0900 [facility]; Protocol Magnesium Hydroxide (Milk Of Magnesia 30 Ml Oral.Susp) 30 ml PO DAILY PRN PRN Reason: Constipation Melatonin (Melatonin 3 Mg Tablet) 6 mg PO BEDTIME PRN PRN Reason: Insomnia Morphine Sulfate (Morphine Sulfate 4 Mg/Ml Cartridge) 2 mg IVPUSH Q4H PRN; Protocol PRN Reason: Pain, Severe (Pain Scale 7-10) Last Admin: 08/23/24 04:36 Dose: 2 mg Omeprazole (Omeprazole 20 Mg Capsule.Dr) 20 mg PO DAILY@629 [facility] Last Admin: 08/23/24 05:49 Dose: 20 mg Ondansetron HCl (Ondansetron Hcl 4 Mg/2 Ml Vial) 4 mg IVPUSH Q8H PRN PRN Reason: Nausea and Vomiting Oxycodone HCl (Oxycodone Hcl Immed Release 5 Mg Tablet) 10 mg PO Q6H PRN PRN Reason: Pain, Severe (Pain Scale 7-10) Last Admin: 08/23/24 09:26 Dose: 10 mg Pharmacy Consult (Consult Rx Vancomycin Dosing) 1 each MISCELLANE DAILY PRN PRN Reason: Consult order Pregabalin (Pregabalin 75 Mg Capsule) 75 mg PO DAILY [facility] Last Admin: 08/23/24 07:16 Dose: 75 mg Sodium Chloride (0.9 % Sodium Chloride Flush 3 Ml Syringe) 3 ml IVFLUSH [facility] Last Admin: 08/23/24 07:11 Dose: 3 ml Home Medications ?Medication ?Instructions ?Recorded ?Confirmed ?Last Taken ?Type allopurinol 100 mg tablet 100 mg PO MOWEFR@1600 04/19/22 08/22/24 08/21/24 History atorvastatin 40 mg tablet 40 mg PO SUTUTHSA@89904/19/22 08/22/24 08/21/24 History doxazosin 4 mg tablet 4 mg PO BEDTIME 04/19/22 08/22/24 08/21/24 History furosemide 80 mg tablet 80 mg PO SUTUTHSA@89904/19/22 08/22/24 08/21/24 History omeprazole 20 mg capsule,delayed 20 mg PO DAILY@0630 04/19/22 08/22/24 08/21/24 History release aspirin 81 mg tablet,delayed 81 mg PO SUTUTHSA@0906/20/23 08/22/24 08/21/24 History release pregabalin 75 mg capsule 75 mg PO DAILY 06/20/23 08/22/24 08/21/24 History aspirin 81 mg tablet,delayed 81 mg PO MOWEFR@1600 04/05/24 08/22/24 08/21/24 History release atorvastatin 40 mg tablet 40 mg PO MOWEFR@1600 04/05/24 08/22/24 08/21/24 History fluticasone fur. 100 mcg-umeclid 1 inh inhalation DAILY 04/05/24 08/22/24 08/21/24 History 62.5 mcg-vilant 25 mcg inhalat.powder (Trelegy Ellipta) furosemide 80 mg tablet 80 mg PO MOWEFR@1600 04/05/24 08/22/24 08/21/24 History losartan 25 mg tablet 25 mg PO MOWEFR@1600 04/05/24 08/22/24 08/21/24 History losartan 25 mg tablet 25 mg PO SUTUTHSA@0900 04/05/24 08/22/24 08/21/24 History insulin glargine 100 unit/mL (3 22 unit subcut BEDTIME 05/01/24 08/22/24 08/21/24 History mL) subcutaneous pen (Lantus Solostar U-100 Insulin) acetaminophen 500 mg tablet 1,000 mg PO Q8H PRN Pain 05/26/24 08/22/24 Unknown History amlodipine 10 mg tablet 10 mg PO DAILY 05/26/24 08/22/24 08/21/24 History calcium carbonate (Calcium 500) 500 mg PO TID 05/26/24 08/22/24 08/21/24 History docusate sodium 100 mg capsule 100 mg PO DAILY 05/26/24 08/22/24 08/21/24 History insulin lispro 100 unit/mL See Rx Instructions .Route .COMPLEX 05/26/24 08/22/24 08/21/24 History subcutaneous solution (Humalog U-100 Insulin) albuterol sulfate 90 mcg/actuation 2 puff inhalation Q4H PRN wheezing 08/22/24 08/22/24 Unknown History aerosol inhaler (Ventolin HFA) carvedilol 6.25 mg tablet 6.25 mg PO BID 08/22/24 08/22/24 Unknown History ipratropium 0.5 mg-albuterol 3 mg 3 ml inhalation QID PRN Shortness 08/22/24 08/22/24 08/21/24 History (2.5 mg base)/3 mL nebulization Of Breath soln sucroferric oxyhydroxide 500 mg 500 mg PO TID 08/22/24 08/22/24 08/21/24 History chewable tablet (Velphoro) Physical Exam Vital Signs: Last Vital Signs Temp 99.0 F 08/23/24 10:59 Pulse 74 08/23/24 10:59 Resp 16 08/23/24 10:59 BP 142/68 H 08/23/24 10:59 Pulse Ox 92 08/23/24 10:59 O2 Del Method Nasal Cannula 08/23/24 10:59 O2 Flow Rate 2 08/23/24 10:59 BMI result Body Mass Index 27.3 Const General: alert and awake Resp Effort & Inspection: normal respiratory effort and able to speak in complete sentences Auscultation: clear to auscultation bilaterally Cardio Rate: regular rate Rhythm: regular rhythm Heart sounds: S1 normal heart sound present and S2 normal heart sound present GI Palpation (GI): Soft to palpation and nontender Skin Wounds: wounds noted (right necrotic 2nd and 3rd digits ) Extrem General: No edema and No pedal edema Results Lab Results 08/23/24 06:33 08/23/24 11:49 Lab results: Chemistry 08/22/24 11:41 Sodium 137 Potassium 5.0 Carbon Dioxide 27 BUN 54 H Creatinine 6.03 H* Calcium 8.6 Hematology 08/22/24 08/23/24 11:41 06:33 WBC 16.3 H 15.8 H Hgb 11.4 L 11.0 L Plt Count 194 183 Assessment and Plan (1) ESRD needing dialysis: Status: Acute Plan ESRD on HD pt will get HD tomorrow a.m. as this is earliest available slot with HD clinic cma: Right permcath appears slightly hypervolemic H&H 11 & 35- no indication for procrit at this time phos is 7.7, start sevelamer 800mg TID with meals. Calcium 8.6. low potassium, phosphorous, and sodium diet fluid restriction 1.5L continue to monitor electrolytes renal function studies daily regular blood pressure checks will continue to follow Procedures Date of Service Date of Service: 08/23/24
--- NOTE | 2024-08-23 11:59 | MHC.CM.PN ---
Addendum entered by Desire Ye 08/23/24 15:42: PT IS ACTIVE WITH [facility] Original Note: CM MET WITH PT WITH A TAX FORM PREPARER PT PROVIDED SOME ANSWERS, BUT FELL ASLEEP BETWEEN EACH QUESTION PT GOES TO [facility] IN [facility]) FOR HD MWF HE ALSO HAS DAILY [employer] AND A VNA HE IS UNABLE TO PROVIDE NAME OF VNA AGENCY HE HAS HOME O2 (DOES NOT KNOW PROVIDER) AND A W/C HCP ON FILE PCP: SHELBI NAJERA [employer]MM DELIVERED CM ATTEMPTED TO CONTACT PTS SON/HCP, ALYSSA [phone], MSG LEFT REQUESTING A RETURN CALL PER RECORDS, PT WAS LAST ACTIVE WITH [facility][NOTE 3] AND [facility] SHORTLY BEFORE THAT REFERRALS SENT TO BOTH DCP: [facility] [employer] SON TYPICALLY TRANSPORTS
[2024-08-23 12:27] LABS: Anion Gap 22 (12-20); Blood Urea Nitrogen 70 mg/dL (9-16); Calcium 8.6 mg/dL (8.4-10.2); Carbon Dioxide 25 mmol/L (22-29); Chloride 95 mmol/L (96-108); Creatinine Clr Calc Pharmacy 8.2; Estimated Glomerular Filt Rate 7; Potassium 5.6 mmol/L (3.3-5.1); Sodium 136 mmol/L (135-145)
--- NOTE | 2024-08-23 12:48 | P.PNIM_ITS ---
Subjective Subjective Date of Service: 08/23/24 Review of Systems No fever, chills or weakness No chest pain, palpitation No shortness of breath or coughing No abdominal pain, nausea or vomiting No urinary symptoms No any rash or wounds Pain in fingers Physical Exam 2 Vital Signs: Vital Signs: Last Vital Signs Temp 99.0 F 08/23/24 10:59 Pulse 74 08/23/24 10:59 Resp 16 08/23/24 10:59 BP 142/68 H 08/23/24 10:59 Pulse Ox 92 08/23/24 10:59 O2 Del Method Nasal Cannula 08/23/24 10:59 O2 Flow Rate 2 08/23/24 10:59 BMI result Body Mass Index 27.3 Const: Other: General resting in bed,in no acute distress. Neck supple no JVD, no distended neck veins. CVS regular rate rhythm, Respiratory lungs clear to auscultation, diminished, no respiratory distress, no wheeze, no rhonchi. Gastrointestinal abdomen soft, non tender, bowel sounds audible Extremities right and left BKA , left index and 3rd toe necrosis on tip of fingers extending to MIP with cold fingers. no significant erythema Neuro non focal , speech clear Objective Data Active Medications Acetaminophen (Acetaminophen 325 Mg Tablet) 650 mg PO Q6H PRN PRN Reason: Pain, Mild 1-3,fever,headache Albuterol Sulfate (Albuterol Sulfate 90 Mcg 8 Gm Inhaler) 2 puff INHALE Q4H PRN PRN Reason: Wheezing Albuterol/Ipratropium (Albuterol/Iprat 2.5/0.5mg 3 Ml Ampul.Neb) 3 ml INHALE QID PRN PRN Reason: Shortness of Breath Allopurinol (Allopurinol 100 Mg Tablet) 100 mg PO MOWEFR@1600 [facility] Amlodipine Besylate (Amlodipine Besylate 10 Mg Tablet) 10 mg PO DAILY [facility]; Protocol Last Admin: 08/23/24 07:16 Dose: 10 mg Documented By: JAYME Aspirin (Aspirin Enteric Coated 81 Mg Tablet.) 81 mg PO MOWEFR@1600 [facility] Aspirin (Aspirin Enteric Coated 81 Mg Tablet.) 81 mg PO SUTUTHSA@0900 [facility] Atorvastatin Calcium (Atorvastatin Calcium 40 Mg Tablet) 40 mg PO MOWEFR@1600 [facility] Atorvastatin Calcium (Atorvastatin Calcium 40 Mg Tablet) 40 mg PO SUTUTHSA@0900 [facility] Calcium Carbonate (Calcium Carbonate 750 Mg Tab.Chew) 750 mg PO Q4H PRN PRN Reason: Heartburn Carvedilol (Carvedilol 6.25 Mg Tablet) 6.25 mg PO BID [facility]; Protocol Last Admin: 08/23/24 08:16 Dose: 6.25 mg Documented By: JAYME Docusate Sodium (Docusate Sodium 100 Mg Capsule) 100 mg PO DAILY [facility] Last Admin: 08/23/24 07:16 Dose: 100 mg Documented By: JAYME Doxazosin Mesylate (Doxazosin Mesylate 2 Mg Tablet) 4 mg PO BEDTIME [facility]; Protocol Last Admin: 08/22/24 23:39 Dose: 4 mg Documented By: JOSE JUAN Fluticasone/Umeclidinium/Vilanterol (Fluticasone/Umeclidinium/Vilanterol 100/62.5/ Blst.W.Dev) 1 puff INHALE RDAILY [facility] Last Admin: 08/23/24 08:23 Dose: 1 puff Documented By: EVENS Furosemide (Furosemide 40 Mg Tablet) 80 mg PO MOWEFR@1600 [facility]; Protocol Furosemide (Furosemide 40 Mg Tablet) 80 mg PO SUTUTHSA@0900 [facility]; Protocol Heparin Sodium (Porcine) (Heparin Sodium,Porcine 5,000 Unit/Ml Vial) 5,000 unit SUBCUT Q12H [facility] Last Admin: 08/23/24 05:48 Dose: 5,000 unit Documented By: NORM Vancomycin HCl 500 mg/ Sodium (Chloride) 110 mls @ 110 mls/hr IV ONCE ONE Stop: 08/23/24 20:59 Insulin Glargine (Insulin Glargine,Hum.Rec.Anlog 100 Unit/Ml 10 Ml Vial) 20 unit SUBCUT BEDTIME [facility] Last Admin: 08/23/24 00:16 Dose: Not Given Documented By: JOSE JUAN Non-Admin Reason: per KYLAH Cheryl Insulin Human Lispro (Insulin Lispro 100 Unit/Ml 3 Ml Vial) 0 unit SUBCUT QIDACHS [facility]; Protocol Last Admin: 08/23/24 11:44 Dose: 2 unit Documented By: JAYME Levetiracetam (Levetiracetam 1,000 Mg Tablet) 1,000 mg PO BID [facility] Last Admin: 08/23/24 07:16 Dose: 1,000 mg Documented By: JAYME Losartan Potassium (Losartan Potassium 25 Mg Tablet) 25 mg PO MOWEFR@1600 [facility]; Protocol Losartan Potassium (Losartan Potassium 25 Mg Tablet) 25 mg PO SUTUTHSA@0900 [facility]; Protocol Magnesium Hydroxide (Milk Of Magnesia 30 Ml Oral.Susp) 30 ml PO DAILY PRN PRN Reason: Constipation Melatonin (Melatonin 3 Mg Tablet) 6 mg PO BEDTIME PRN PRN Reason: Insomnia Morphine Sulfate (Morphine Sulfate 4 Mg/Ml Cartridge) 2 mg IVPUSH Q4H PRN; Protocol PRN Reason: Pain, Severe (Pain Scale 7-10) Last Admin: 08/23/24 04:36 Dose: 2 mg Documented By: NORM Omeprazole (Omeprazole 20 Mg Capsule.Dr) 20 mg PO DAILY@0630 [facility] Last Admin: 08/23/24 05:49 Dose: 20 mg Documented By: NORM Ondansetron HCl (Ondansetron Hcl 4 Mg/2 Ml Vial) 4 mg IVPUSH Q8H PRN PRN Reason: Nausea and Vomiting Oxycodone HCl (Oxycodone Hcl Immed Release 5 Mg Tablet) 10 mg PO Q6H PRN PRN Reason: Pain, Severe (Pain Scale 7-10) Last Admin: 08/23/24 09:26 Dose: 10 mg Documented By: JAYME Pharmacy Consult (Consult Rx Vancomycin Dosing) 1 each MISCELLANE DAILY PRN PRN Reason: Consult order Pregabalin (Pregabalin 75 Mg Capsule) 75 mg PO DAILY [facility] Last Admin: 08/23/24 07:16 Dose: 75 mg Documented By: JAYME Sevelamer Carbonate (Sevelamer Carbonate Tablet 800 Mg Tablet) 800 mg PO TIDWM [facility] Sodium Chloride (0.9 % Sodium Chloride Flush 3 Ml Syringe) 3 ml IVFLUSH QSHIFT [facility] Last Admin: 08/23/24 07:11 Dose: 3 ml Documented By: JAYME Labs 08/23/24 06:33 08/23/24 11:49 Labs: Laboratory Results - last 24 hr 08/22/24 08/22/24 08/22/24 14:20 16:08 17:11 MCV MCH MCHC RDW Plt Count MPV Absolute Nucleated RBC Nucleated RBC % (auto) Anion Gap Estim Creat Clear Calc Estimated GFR POC Glucose 381 H* 405 H* Random Glucose Lactic Acid 1.6 Calcium Phosphorus 08/22/24 08/22/24 08/23/24 18:49 21:05 02:46 MCV MCH MCHC RDW Plt Count MPV Absolute Nucleated RBC Nucleated RBC % (auto) Anion Gap Estim Creat Clear Calc Estimated GFR POC Glucose 179 H 82 184 H Random Glucose Lactic Acid Calcium Phosphorus 08/23/24 08/23/24 08/23/24 06:33 06:55 10:48 MCV 73.6 L MCH 23.1 L MCHC 31.3 RDW 19.4 H Plt Count 183 MPV Not Reportable Absolute Nucleated RBC 0.020 H Nucleated RBC % (auto) 0.1 Anion Gap Estim Creat Clear Calc Estimated GFR POC Glucose 192 H 174 H Random Glucose Lactic Acid Calcium Phosphorus 08/23/24 11:49 MCV MCH MCHC RDW Plt Count MPV Absolute Nucleated RBC Nucleated RBC % (auto) Anion Gap 22 H Estim Creat Clear Calc 8.2 Estimated GFR 7 POC Glucose Random Glucose 183 H Lactic Acid Calcium 8.6 Phosphorus 7.7 H Assessment and Plan (1) PVD (peripheral vascular disease): Status: Acute (2) ESRD needing dialysis: Status: Acute (3) Osteomyelitis: Status: Acute (4) Necrosis of finger: Status: Acute Plan 69M PMH significant for?ESRD on HD M/W/F, insulin-dependent type 2 diabetes, peripheral vascular disease, s/p right BKA 04/[address] Cannon, seizure disorder, HFrEF, HTN, HLD, chronically on 2L home O2, GERD, and ROBERT on CPAP who presented to the ED with?worsening pain in his right hand with 3rd and 4th fingers dry gangrene. Right hand ischemic changes, 3rd and 4th fingers not septic Hand XR showing Amputation through the distal phalanx of the third digit near the metaphysis. Lucency in the anterior distal end of the remaining bone could be related to osteomyelitis or trauma. suspected infection per hand surgery and OM IV Vancomycin Orthopedic evaluation recommend next week ambutation Mon\Mon after discussing with Dr Witt vancomycin trough Uncontrolled HTN Continue losartan, Amlodipine Doxazosin Chronic hypoxic respiratory failure on 2 L of home oxygen/obstructive sleep apnea on CPAP No acute hypoxia. ESRD on HD M/W/F Continue Jessica Villalobos nephro consulted, to do HD tomorrow morning (Monday) Insulin-dependent type 2 diabetes continue Sliding-scale insulin, Lantus 20 units at bedtime Diabetic diet Seizure disorder Continue Keppra HLD/PAD aspirin Peripheral neuropathy Continue pregabalin DVT Prophylaxis: hep sq reason for continued hospitalization: Finger ischemia and infection ORthopedic surgery intervention early next week and continue IV antibiotics Quality Stroke Does the patient have a stroke diagnosis?: No VTE Prior VTE?: No VTE Risk Level:: Medical - moderate - high VTE Device Contraindication: Treatment Not Indicated VTE Drug Contraindication: N/A - Med Ordered
--- NOTE | 2024-08-23 13:39 | HO.WOUND ---
Wound Consult: Initial 69yr old?[place] [facility] See progress notes and H&P for detailed history.? Wound consult placed for Fingers, Toe, calf and Right AKA.? Patient agreeable to assessment and photo documentation.? TT to provider regarding left posterior calf. Right 2nd and 3rd Fingers Etiology: Arterial Wounds??Present on Admission Wound Bed: dried mummified gangrene Drainage / Odor: no drainage mal odor noted Edges: ? dried and stable Mariela wound: ?swelling and erythema noted - No Induration, Fluctuance or Warmth noted Pain: reports pain Goals of Treatment: ? [place] with Betadine and defer to providers for surgical interventions. Left Great Toe Etiology: Arterial Wounds vs Diabetic wound??Present on Admission Wound Bed: dried mummified gangrene Drainage / Odor: no drainage mal odor noted Edges: ? dried and stable Mariela wound: ?mild erythema noted - No Induration, Fluctuance or Warmth noted Pain: denies pain Goals of Treatment: ? [place] with Betadine Right AKA Etiology: Diabetic wound ??Present on Admission Wound Bed: full thickness tissue loss marbled wound bed wit pink and moist slough noted Drainage / Odor: huang drainage no odor noted Edges: irregular and unattached Mariela wound: ?intact No Induration, Fluctuance or Warmth noted Pain: denies pain Goals of Treatment: ? durafiber for moisture management Left Posterior Calf Etiology: Diabetic Wound??Present on Admission Wound Bed: moist necrotic loosely attached tissue Drainage / Odor: mal odor noted huang drainage Edges: ? irregular and hyperpigmented Mariela wound: ? No Induration, Fluctuance or Warmth noted Pain: reports pain Goals of Treatment: ? Durafiber for moisture management and defer to providers for surgical interventions. Right heel intact no injury noted - preventative foam applied Recommendations: 1. Turn and Reposition every 2 hours and as needed for patient comfort.? Use pillows or wedges to support off loading positions. 2. Off Load all bony prominences with use of pillows and heel boots if needed.? Apply Preventative foams where needed. ? 3. Monitor for incontinence and moisture control, use barrier creams when needed for prevention and treatment. 4. Provide adequate and supplemental nutrition.? 5. Continue low air loss mattress. 6. When applicable maintain blood glucose levels per Providers order. Left Posterior Calf and Right AKA site - Cleanse with NS pat dry. Apply skin prep or barrier to wound bed cover wound bed with durfiber AG, cover with dry gauze and wrap or Foam dressing. Change every other day. Left Great Toe and Right Fingers - [place] with Betadine allow to dry. May leave JARROD- if drainage occurs cover with dry gauze. [place] Daily. Re-consult wound care Nurse for wound deterioration or wound changes.
[2024-08-23] MEDS: Aspirin Enteric Coated 81 MG TABLET.DR PO (15:19)
[2024-08-23 16:11] LABS: Glucose, Whole Blood 190 mg/dL (60-115)
[2024-08-23] MEDS: Sevelamer Carbonate Tablet 800 MG TABLET PO (16:13)
[2024-08-23] MEDS: Insulin Glargine,Hum.rec.anlog 100 UNIT/ML 10 ML VIAL 20 UNIT SUBCUT (19:52)
[2024-08-23 20:43] LABS: Glucose, Whole Blood 200 mg/dL (60-115)
[2024-08-24] VITALS (9 sets, daily range): BP systolic 119–167; BP diastolic 59–80; PULSE 59–85; RESP 18–20; TEMP 36.2–37.1; O2SAT 92–96
[2024-08-24] MEDS: oxyCODONE HCl Immed Release 5 MG TABLET 10 MG PO (03:46)
[2024-08-24 07:21] LABS: MANUAL DIFF FLAG NO
[2024-08-24 07:25] LABS: Hematocrit 33.8 % (42.0-52.0); Hemoglobin 10.5 g/dl (14.0-18.0); Imm Gran Abs Auto 0.08 X10*3/uL (0.00-0.03); Imm Gran Pct Auto 0.5 % (0.0-0.4); Lymphocytes Absolute Auto 0.8 X10*3/uL (1.2-4.9); Mean Corpuscular HGB Conc 31.1 g/dl (31.0-36.0); Mean Corpuscular Hemoglobin 22.9 pg (27.0-33.0); Mean Corpuscular Volume 73.6 fL (80.0-98.0); NRBC Abs Auto 0.030 X10*3/uL (0.0-0.012); NRBC Pct Auto 0.2 /100WBC (0.0-0.2); Platelet Count 180 X10*3/uL (160-400); Red Blood Count 4.59 X10*6/uL (4.60-5.80); White Blood Count 15.9 X10*3/uL (4.8-10.8)
[2024-08-24 07:38] LABS: Anion Gap 19 (12-20); Blood Urea Nitrogen 56 mg/dL (9-16); Calcium 8.6 mg/dL (8.4-10.2); Carbon Dioxide 27 mmol/L (22-29); Chloride 97 mmol/L (96-108); Creatinine Clr Calc Pharmacy 10.6; Estimated Glomerular Filt Rate 9; Potassium 4.5 mmol/L (3.3-5.1); Sodium 138 mmol/L (135-145)
--- NOTE | 2024-08-24 08:15 | HO.PM.IMPN ---
Subjective Subjective Date of Service: 08/24/24 Interval History: Seen in follow up for dry gangrene Interval history: Confused, not answering questions appropriately. HD this morning and was sleeping the entire time. Upon return, RN noted encephalopathy. Complaining of body wide pruritus, per his report normal after HD. No distress Review of Systems Review of Systems: Yes Unobtainable due to mental status Physical Exam Vital Signs: Vital Signs: Last Vital Signs Temp 97.9 F 08/24/24 03:56 Pulse 79 08/24/24 03:56 Resp 20 08/24/24 03:56 BP 167/80 H 08/24/24 03:56 Pulse Ox 94 08/24/24 03:56 O2 Del Method Nasal Cannula 08/24/24 03:56 O2 Flow Rate 2 08/24/24 03:56 BMI result Body Mass Index 27.3 Constitutional - Awake and Alert, No apparent distress Eyes - PERRLA, EOMI. Mild swelling upper lids bilaterally Cardiovascular - S1S2, RRR, No edema Respiratory - Normal lung expansion, Normal respiratory effort, No respiratory distress, CTA bilaterally Gastrointestinal - NT / ND; +BS; No rebound or guarding. +asterixis Extremities - no calf tenderness bilaterally, no swelling Musculoskeletal - Normal inspection, normal ROM Skin - Warm/Dry Neurological - Alert & oriented x3, unable to consistently follow commands. No facial droop or slurred speech. Tongue midline with appropriate rise of soft palate. PERRL, inconsistent positive arm drift of each upper extremity but normalizes on recheck. 4/5 strength BLE (R AKA). Psychological - Appropriate affect Objective Data Active Medications Acetaminophen (Acetaminophen 325 Mg Tablet) 650 mg PO Q6H PRN PRN Reason: Pain, Mild 1-3,fever,headache Albuterol Sulfate (Albuterol Sulfate 90 Mcg 8 Gm Inhaler) 2 puff INHALE Q4H PRN PRN Reason: Wheezing Albuterol/Ipratropium (Albuterol/Iprat 2.5/0.5mg 3 Ml Ampul.Neb) 3 ml INHALE QID PRN PRN Reason: Shortness of Breath Allopurinol (Allopurinol 100 Mg Tablet) 100 mg PO MOWEFR@1600 [facility] Last Admin: 08/23/24 15:20 Dose: 100 mg Documented By: HADLEY Amlodipine Besylate (Amlodipine Besylate 10 Mg Tablet) 10 mg PO DAILY [facility]; Protocol Last Admin: 08/23/24 07:16 Dose: 10 mg Documented By: JAYME Aspirin (Aspirin Enteric Coated 81 Mg Tablet.) 81 mg PO MOWEFR@1600 [facility] Last Admin: 08/23/24 15:19 Dose: 81 mg Documented By: HADLEY Aspirin (Aspirin Enteric Coated 81 Mg Tablet.) 81 mg PO SUTUTHSA@0900 [facility] Atorvastatin Calcium (Atorvastatin Calcium 40 Mg Tablet) 40 mg PO MOWEFR@1600 [facility] Last Admin: 08/23/24 15:20 Dose: 40 mg Documented By: HADLEY Atorvastatin Calcium (Atorvastatin Calcium 40 Mg Tablet) 40 mg PO SUTUTHSA@0900 [facility] Calcium Carbonate (Calcium Carbonate 750 Mg Tab.Chew) 750 mg PO Q4H PRN PRN Reason: Heartburn Carvedilol (Carvedilol 6.25 Mg Tablet) 6.25 mg PO BID [facility]; Protocol Last Admin: 08/23/24 19:51 Dose: 6.25 mg Documented By: HENRIETTA Docusate Sodium (Docusate Sodium 100 Mg Capsule) 100 mg PO DAILY [facility] Last Admin: 08/23/24 07:16 Dose: 100 mg Documented By: JAYME Doxazosin Mesylate (Doxazosin Mesylate 2 Mg Tablet) 4 mg PO BEDTIME [facility]; Protocol Last Admin: 08/23/24 21:32 Dose: 4 mg Documented By: HENRIETTA Fluticasone/Umeclidinium/Vilanterol (Fluticasone/Umeclidinium/Vilanterol 100/62.5/25 Blst.W.Dev) 1 puff INHALE RDAILY [facility] Last Admin: 08/24/24 07:55 Dose: Not Given Documented By: EMELIA Non-Admin Reason: See Note Furosemide (Furosemide 40 Mg Tablet) 80 mg PO MOWEFR@1600 [facility]; Protocol Last Admin: 08/23/24 15:19 Dose: 80 mg Documented By: HADLEY Furosemide (Furosemide 40 Mg Tablet) 80 mg PO SUTUTHSA@0900 [facility]; Protocol Heparin Sodium (Porcine) (Heparin Sodium,Porcine 5,000 Unit/Ml Vial) 5,000 unit SUBCUT Q12H [facility] Last Admin: 08/23/24 18:28 Dose: 5,000 unit Documented By: HADLEY Vancomycin HCl 500 mg/ Sodium (Chloride) 110 mls @ 110 mls/hr IV ONCE ONE Stop: 08/23/24 20:59 Insulin Glargine (Insulin Glargine,Hum.Rec.Anlog 100 Unit/Ml 10 Ml Vial) 20 unit SUBCUT BEDTIME [facility] Last Admin: 08/23/24 19:52 Dose: 20 unit Documented By: HENRIETTA Insulin Human Lispro (Insulin Lispro 100 Unit/Ml 3 Ml Vial) 0 unit SUBCUT QIDACHS [facility]; Protocol Last Admin: 08/23/24 20:49 Dose: 2 unit Documented By: HENRIETTA Levetiracetam (Levetiracetam 1,000 Mg Tablet) 1,000 mg PO BID [facility] Last Admin: 08/23/24 19:52 Dose: 1,000 mg Documented By: HENRIETTA Losartan Potassium (Losartan Potassium 25 Mg Tablet) 25 mg PO MOWEFR@1600 [facility]; Protocol Last Admin: 08/23/24 15:20 Dose: 25 mg Documented By: HADLEY Losartan Potassium (Losartan Potassium 25 Mg Tablet) 25 mg PO SUTUTHSA@0900 [facility]; Protocol Magnesium Hydroxide (Milk Of Magnesia 30 Ml Oral.Susp) 30 ml PO DAILY PRN PRN Reason: Constipation Melatonin (Melatonin 3 Mg Tablet) 6 mg PO BEDTIME PRN PRN Reason: Insomnia Morphine Sulfate (Morphine Sulfate 4 Mg/Ml Cartridge) 2 mg IVPUSH Q4H PRN; Protocol PRN Reason: Pain, Severe (Pain Scale 7-10) Last Admin: 08/24/24 01:13 Dose: 2 mg Documented By: HENRIETTA Omeprazole (Omeprazole 20 Mg Capsule.Dr) 20 mg PO DAILY@0630 [facility] Last Admin: 08/23/24 05:49 Dose: 20 mg Documented By: NORM Ondansetron HCl (Ondansetron Hcl 4 Mg/2 Ml Vial) 4 mg IVPUSH Q8H PRN PRN Reason: Nausea and Vomiting Oxycodone HCl (Oxycodone Hcl Immed Release 5 Mg Tablet) 10 mg PO Q6H PRN PRN Reason: Pain, Severe (Pain Scale 7-10) Last Admin: 08/24/24 03:46 Dose: 10 mg Documented By: HENRIETTA Pharmacy Consult (Consult Rx Vancomycin Dosing) 1 each MISCELLANE DAILY PRN PRN Reason: Consult order Pregabalin (Pregabalin 75 Mg Capsule) 75 mg PO DAILY [facility] Last Admin: 08/23/24 07:16 Dose: 75 mg Documented By: JAYME Sevelamer Carbonate (Sevelamer Carbonate Tablet 800 Mg Tablet) 800 mg PO TIDWM [facility] Last Admin: 08/23/24 16:13 Dose: 800 mg Documented By: HADLEY Sodium Chloride (0.9 % Sodium Chloride Flush 3 Ml Syringe) 3 ml IVFLUSH QSHIFT [facility] Last Admin: 08/23/24 20:00 Dose: 3 ml Documented By: HENRIETTA Labs 08/24/24 06:33 08/24/24 06:33 Labs: Laboratory Results - last 24 hr 08/23/24 08/23/24 08/23/24 10:48 11:49 16:05 MCV MCH MCHC RDW Plt Count MPV Immature Gran % (Auto) Neut % (Auto) Lymph % (Auto) [place] % (Auto) Eos % (Auto) Baso % (Auto) Lymph # (Auto) [place] # (Auto) Eos # (Auto) Baso # (Auto) Abs Immat Gran (auto) Absolute Neuts (auto) Absolute Nucleated RBC Nucleated RBC % (auto) Anion Gap 22 H Estim Creat Clear Calc 8.2 Estimated GFR 7 POC Glucose 174 H 190 H Random Glucose 183 H Calcium 8.6 Phosphorus 7.7 H 08/23/24 08/24/24 20:34 06:33 MCV 73.6 L MCH 22.9 L MCHC 31.1 RDW 19.4 H Plt Count 180 MPV Not Reportable Immature Gran % (Auto) 0.5 H Neut % (Auto) 85.0 H Lymph % (Auto) 5.2 L [place] % (Auto) 7.3 Eos % (Auto) 1.8 Baso % (Auto) 0.2 Lymph # (Auto) 0.8 L [place] # (Auto) 1.2 Eos # (Auto) 0.3 Baso # (Auto) 0.0 Abs Immat Gran (auto) 0.08 H Absolute Neuts (auto) 13.5 H Absolute Nucleated RBC 0.030 H Nucleated RBC % (auto) 0.2 Anion Gap 19 Estim Creat Clear Calc 10.6 Estimated GFR 9 POC Glucose 200 H Random Glucose 84 Calcium 8.6 Phosphorus Microbiology Microbiology Results: Microbiology 08/22/24 14:52 Blood Culture - Preliminary Blood - Venous No growth after 24 hours. 08/22/24 14:20 Blood Culture - Preliminary Blood - Venous No growth after 24 hours. Assessment and Plan (1) PVD (peripheral vascular disease): Status: Acute (2) ESRD needing dialysis: Status: Acute (3) Osteomyelitis: Status: Acute (4) Necrosis of finger: Status: Acute (5) Encephalopathy: Status: Acute Plan 69M PMH significant for?ESRD on HD M/W/F, insulin-dependent type 2 diabetes, peripheral vascular disease, s/p right BKA 04/[address] Cannon, seizure disorder, HFrEF, HTN, HLD, chronically on 2L home O2, GERD, and ROBERT on CPAP who presented to the ED with?worsening pain in his right hand with 3rd and 4th fingers dry gangrene. Acute encephalopathy Unknown last well time. No consistent focal neuro deficits on exam Hypoglycemic at 50 this am, recovered, now 110 persists Possibly toxic r/t morphine/oxycodone administration overnight Asterixis noted on exam. No hx cirrhosis. Ammonia level and Liver panel ordered Check BMP, VBG Anuric. UA not indicated Head CT ordered Monitor mentation Right hand ischemic changes, 3rd and 4th fingers not septic Hand XR showing Amputation through the distal phalanx of the third digit near the metaphysis. Lucency in the anterior distal end of the remaining bone could be related to osteomyelitis or trauma. suspected infection per hand surgery and OM IV Vancomycin Orthopedic evaluation recommend next week ambutation Mon\Mon after discussing with Dr Eduar CHAMBERLAIN morphine, lower dose oxy to 5mg due to above. Pain reasonably controlled per patient vancomycin trough Uncontrolled HTN Continue losartan, Amlodipine Doxazosin Chronic hypoxic respiratory failure on 2 L of home oxygen/obstructive sleep apnea on CPAP No acute hypoxia. ESRD on HD M/W/F Continue Jessica Villalobos nephro consulted, to do HD tomorrow morning (Monday) Insulin-dependent type 2 diabetes with hypoglycemia continue Sliding-scale insulin, Lantus 20 units at bedtime Diabetic diet Seizure disorder Continue Keppra HLD/PAD aspirin Peripheral neuropathy Continue pregabalin DVT Prophylaxis: hep sq reason for continued hospitalization: Finger ischemia and infection ORthopedic surgery intervention early next week and continue IV antibiotics Quality Stroke Does the patient have a stroke diagnosis?: No VTE Prior VTE?: No VTE Risk Level:: Medical - moderate - high VTE Device Contraindication: Treatment Not Indicated VTE Drug Contraindication: N/A - Med Ordered
[2024-08-24 10:13] LABS: Glucose, Whole Blood 50 mg/dL (60-115)
[2024-08-24] MEDS: Aspirin Enteric Coated 81 MG TABLET.DR PO (10:15)
[2024-08-24 10:41] LABS: Glucose, Whole Blood 88 mg/dL (60-115)
[2024-08-24] MEDS: Sevelamer Carbonate Tablet 800 MG TABLET PO (10:44)
[2024-08-24 11:15] LABS: Glucose, Whole Blood 101 mg/dL (60-115)
[2024-08-24 11:50] LABS: Venous Blood Gas Refer to POC result
[2024-08-24 11:51] LABS: VBG HCO3 36 mmol/L (22-26); VBG O2 % Saturation 83.0 %
[2024-08-24 11:54] LABS: Ammonia 32 umol/L (13-55)
[2024-08-24 12:01] LABS: Alanine Aminotransferase 19 U/L (0-40); Albumin Level 3.4 g/dL (3.5-5.0); Alkaline Phosphatase 143 U/L (39-117); Anion Gap 17 (12-20); Aspartate Amino Transferase 18 U/L (5-37); Blood Urea Nitrogen 35 mg/dL (9-16); Calcium 9.0 mg/dL (8.4-10.2); Carbon Dioxide 30 mmol/L (22-29); Chloride 97 mmol/L (96-108); Creatinine Clr Calc Pharmacy 13.9; Estimated Glomerular Filt Rate 13; Potassium 4.1 mmol/L (3.3-5.1); Sodium 140 mmol/L (135-145); Total Protein 7.0 g/dL (6.5-8.0)
[2024-08-24 15:29] LABS: Glucose, Whole Blood 63 mg/dL (60-115)
[2024-08-24 15:36] LABS: Glucose, Whole Blood 59 mg/dL (60-115)
[2024-08-24] MEDS: Glucose Gel 15 GM GEL..GRAM. PO (15:37)
[2024-08-24 16:00] LABS: Glucose, Whole Blood 85 mg/dL (60-115)
[2024-08-24] MEDS: 0.9 % Sodium Chloride Flush 3 ML SYRINGE IVFLUSH ×2 (17:44→20:21)
--- NOTE | 2024-08-24 18:43 | PM.EVENT ---
Event Note Date of Service: 08/24/24 Event Note: 6:35 AM - I was asked to evaluate patient as he has been confused and sleepy. He was lethargic but easy to arouse. Nasal cannula in place 2 L/min. No focal deficit note. Normal speech. Patient has been hypoglycemic. Venous blood gas remarkable for elevated pCO2 60 (baseline 40s). Plan: -Titrate oxygen if possible (however, on home oxygen) -Avoid sedatives or narcotics, patient has been receiving morphine and oxycodone. We want to avoid narcotics inpatient with renal disease. -Start IV fluid with D5 low rate to avoid to avoid Time Spent With Patient Time: Total time managing care of this patient today ____ minutes.
[2024-08-24 20:30] LABS: Glucose, Whole Blood 100 mg/dL (60-115)
[2024-08-25] VITALS (8 sets, daily range): BP systolic 126–145; BP diastolic 62–75; PULSE 72–76; RESP 17–20; TEMP 36.8–37.3; O2SAT 91–100
--- NOTE | 2024-08-25 00:50 | PC.NURSE ---
Patient sleepy but responsive, confused at change of shift. MD here to assess patient. He is alert to person and place, asking staff why he is here. MD concerned about CO2 retention after VBG results and AMS. Order in to titrate oxygen down as able. Patient on chronic 2L, took off oxygen yesterday in Dialysis and was at 78% on room air. RN titrated oxygen to 1L and is currently at 92%. Patient has severe ROBERT and is non compliant with Bipap. Bipap trialed tonight. Patient kept bipap on for approx 2 hours, took it off and refused to put it back on. He is more awake wether it be from bipap or increased blood sugar d/t D5 iv fluids. Remains confused but calm with 1L oxygen in place.
[2024-08-25 01:13] LABS: Glucose, Whole Blood 69 mg/dL (60-115)
[2024-08-25 04:24] LABS: Glucose, Whole Blood 58 mg/dL (60-115)
[2024-08-25] MEDS: Glucose Gel 15 GM GEL..GRAM. PO (04:50)
[2024-08-25 06:03] LABS: Glucose, Whole Blood 102 mg/dL (60-115)
[2024-08-25 07:18] LABS: Venous Blood Gas Refer to POC result
[2024-08-25 07:19] LABS: VBG HCO3 31 mmol/L (22-26); VBG O2 % Saturation 88.0 %
[2024-08-25 07:30] LABS: MANUAL DIFF FLAG NO
--- NOTE | 2024-08-25 07:39 | P.PNIM_ITS ---
Subjective Subjective Date of Service: 08/25/24 Interval History: Seen in follow up for dry gangrene Interval history: Mentation improved. Glucose levels low normal. He has no complaints. Disoriented to time but otherwise answering questions appropriately Review of Systems Review of Systems: Yes all other systems are reviewed and are negative Physical Exam 2 Vital Signs: Vital Signs: Last Vital Signs Temp 98.3 F 08/25/24 07:18 Pulse 74 08/25/24 07:18 Resp 20 08/25/24 07:18 BP 138/68 08/25/24 07:18 Pulse Ox 91 L 08/25/24 07:18 O2 Del Method Nasal Cannula 08/25/24 07:18 O2 Flow Rate 1 08/25/24 07:18 BMI result Body Mass Index 27.3 Constitutional - Awake and Alert, No apparent distress Eyes - PERRLA, EOMI. Mild swelling upper lids bilaterally Cardiovascular - S1S2, RRR, No edema Respiratory - Normal lung expansion, Normal respiratory effort, No respiratory distress, CTA bilaterally Gastrointestinal - NT / ND; +BS; No rebound or guarding. Extremities - no calf tenderness bilaterally, no swelling Musculoskeletal - Normal inspection, normal ROM Skin - Warm/Dry. Dry gangrene of the R 2nd and 3rd fingers Neurological - Alert & oriented x2. 5/5 strength bue and ble Psychological - Appropriate affect Objective Data Active Medications Acetaminophen (Acetaminophen 325 Mg Tablet) 650 mg PO Q6H PRN PRN Reason: Pain, Mild 1-3,fever,headache Albuterol Sulfate (Albuterol Sulfate 90 Mcg 8 Gm Inhaler) 2 puff INHALE Q4H PRN PRN Reason: Wheezing Albuterol/Ipratropium (Albuterol/Iprat 2.5/0.5mg 3 Ml Ampul.Neb) 3 ml INHALE QID PRN PRN Reason: Shortness of Breath Allopurinol (Allopurinol 100 Mg Tablet) 100 mg PO MOWEFR@1600 [facility] Last Admin: 08/23/24 15:20 Dose: 100 mg Documented By: HADLEY Amlodipine Besylate (Amlodipine Besylate 10 Mg Tablet) 10 mg PO DAILY [facility]; Protocol Last Admin: 08/24/24 10:15 Dose: 10 mg Documented By: SHAHZAD Aspirin (Aspirin Enteric Coated 81 Mg Tablet.) 81 mg PO MOWEFR@1600 [facility] Last Admin: 08/23/24 15:19 Dose: 81 mg Documented By: HADLEY Aspirin (Aspirin Enteric Coated 81 Mg Tablet.) 81 mg PO SUTUTHSA@0900 [facility] Last Admin: 08/24/24 10:15 Dose: 81 mg Documented By: SHAHZAD Atorvastatin Calcium (Atorvastatin Calcium 40 Mg Tablet) 40 mg PO MOWEFR@1600 [facility] Last Admin: 08/23/24 15:20 Dose: 40 mg Documented By: HADLEY Atorvastatin Calcium (Atorvastatin Calcium 40 Mg Tablet) 40 mg PO SUTUTHSA@0900 [facility] Last Admin: 08/24/24 10:15 Dose: 40 mg Documented By: SHAHZAD Calcium Carbonate (Calcium Carbonate 750 Mg Tab.Chew) 750 mg PO Q4H PRN PRN Reason: Heartburn Carvedilol (Carvedilol 6.25 Mg Tablet) 6.25 mg PO BID [facility]; Protocol Last Admin: 08/24/24 20:21 Dose: 6.25 mg Documented By: HENRIETTA Docusate Sodium (Docusate Sodium 100 Mg Capsule) 100 mg PO DAILY [facility] Last Admin: 08/24/24 10:17 Dose: 100 mg Documented By: SHAHZAD Doxazosin Mesylate (Doxazosin Mesylate 2 Mg Tablet) 4 mg PO BEDTIME [facility]; Protocol Last Admin: 08/24/24 20:20 Dose: 4 mg Documented By: HENRIETTA Fluticasone/Umeclidinium/Vilanterol (Fluticasone/Umeclidinium/Vilanterol 100/62.5/25 Blst.W.Dev) 1 puff INHALE RDAILY [facility] Last Admin: 08/24/24 07:55 Dose: Not Given Documented By: EMELIA Non-Admin Reason: See Note Furosemide (Furosemide 40 Mg Tablet) 80 mg PO MOWEFR@1600 [facility]; Protocol Last Admin: 08/23/24 15:19 Dose: 80 mg Documented By: HADLEY Furosemide (Furosemide 40 Mg Tablet) 80 mg PO SUTUTHSA@0900 [facility]; Protocol Last Admin: 08/24/24 10:16 Dose: 80 mg Documented By: SHAHZAD Glucose (Glucose Gel 15 Gm Gel..Gram.) 15 gm PO Q15M PRN PRN Reason: per Hypoglycemia Standing Ord. Last Admin: 08/25/24 04:50 Dose: 15 gm Documented By: HENRIETTA Heparin Sodium (Porcine) (Heparin Sodium,Porcine 5,000 Unit/Ml Vial) 5,000 unit SUBCUT Q12H [facility] Last Admin: 08/24/24 17:43 Dose: 5,000 unit Documented By: SHAHZAD Vancomycin HCl 500 mg/ Sodium (Chloride) 110 mls @ 110 mls/hr IV ONCE ONE Stop: 08/23/24 20:59 Insulin Glargine (Insulin Glargine,Hum.Rec.Anlog 100 Unit/Ml 10 Ml Vial) 20 unit SUBCUT BEDTIME [facility] On Hold: 08/24/24 18:51 Last Admin: 08/23/24 19:52 Dose: 20 unit Documented By: HENRIETTA Insulin Human Lispro (Insulin Lispro 100 Unit/Ml 3 Ml Vial) 0 unit SUBCUT QIDACHS [facility]; Protocol On Hold: 08/24/24 18:51 Last Admin: 08/24/24 16:28 Dose: Not Given Documented By: SHAHZAD Non-Admin Reason: No Insulin Coverage Levetiracetam (Levetiracetam 1,000 Mg Tablet) 1,000 mg PO BID [facility] Last Admin: 08/24/24 20:21 Dose: 1,000 mg Documented By: HENRIETTA Losartan Potassium (Losartan Potassium 25 Mg Tablet) 25 mg PO MOWEFR@1600 [facility]; Protocol Last Admin: 08/23/24 15:20 Dose: 25 mg Documented By: HADLEY Losartan Potassium (Losartan Potassium 25 Mg Tablet) 25 mg PO SUTUTHSA@0900 [facility]; Protocol Last Admin: 08/24/24 10:16 Dose: 25 mg Documented By: SHAHZAD Magnesium Hydroxide (Milk Of Magnesia 30 Ml Oral.Susp) 30 ml PO DAILY PRN PRN Reason: Constipation Melatonin (Melatonin 3 Mg Tablet) 6 mg PO BEDTIME PRN PRN Reason: Insomnia Omeprazole (Omeprazole 20 Mg Capsule.Dr) 20 mg PO DAILY@0630 [facility] Last Admin: 08/25/24 05:27 Dose: 20 mg Documented By: HENRIETTA Ondansetron HCl (Ondansetron Hcl 4 Mg/2 Ml Vial) 4 mg IVPUSH Q8H PRN PRN Reason: Nausea and Vomiting Oxycodone HCl (Oxycodone Hcl Immed Release 5 Mg Tablet) 5 mg PO Q6H PRN On Hold: 08/24/24 18:53 PRN Reason: Pain, Severe (Pain Scale 7-10) Pharmacy Consult (Consult Rx Vancomycin Dosing) 1 each MISCELLANE DAILY PRN PRN Reason: Consult order Pregabalin (Pregabalin 75 Mg Capsule) 75 mg PO DAILY [facility] Last Admin: 08/24/24 10:15 Dose: 75 mg Documented By: SHAHZAD Sevelamer Carbonate (Sevelamer Carbonate Tablet 800 Mg Tablet) 800 mg PO TIDWM [facility] Last Admin: 08/24/24 17:43 Dose: Not Given Documented By: SHAHZAD Non-Admin Reason: Patient Condition Contraindication Comments: too drowsy Sodium Chloride (0.9 % Sodium Chloride Flush 3 Ml Syringe) 3 ml IVFLUSH QSHIFT [facility] Last Admin: 08/24/24 20:21 Dose: 3 ml Documented By: HENRIETTA Labs 08/25/24 07:11 08/25/24 07:11 Labs: Laboratory Results - last 24 hr 08/24/24 08/24/24 08/24/24 06:33 10:09 10:37 VBG pH VBG pCO2 VBG pO2 VBG HCO3 VBG O2 Saturation VBG Base Excess Anion Gap 19 Estim Creat Clear Calc 10.6 Estimated GFR 9 POC Glucose 50 L* 88 Random Glucose 84 Calcium 8.6 Total Bilirubin Direct Bilirubin AST ALT Alkaline Phosphatase Ammonia Total Protein Albumin Random Vancomycin 08/24/24 08/24/24 08/24/24 10:47 10:58 11:38 VBG pH VBG pCO2 VBG pO2 VBG HCO3 VBG O2 Saturation VBG Base Excess Anion Gap 17 Estim Creat Clear Calc 13.9 Estimated GFR 13 POC Glucose 101 Random Glucose 101 Calcium 9.0 Total Bilirubin 0.5 Direct Bilirubin 0.3 AST 18 ALT 19 Alkaline Phosphatase 143 H Ammonia 32 Total Protein 7.0 Albumin 3.4 L Random Vancomycin 16.7 08/24/24 08/24/24 08/24/24 11:47 15:12 15:31 VBG pH 7.38 VBG pCO2 60 VBG pO2 58 VBG HCO3 36 H VBG O2 Saturation 83.0 VBG Base Excess 9.0 Anion Gap Estim Creat Clear Calc Estimated GFR POC Glucose 63 59 L* Random Glucose Calcium Total Bilirubin Direct Bilirubin AST ALT Alkaline Phosphatase Ammonia Total Protein Albumin Random Vancomycin 08/24/24 08/24/24 08/25/24 15:54 20:26 01:09 VBG pH VBG pCO2 VBG pO2 VBG HCO3 VBG O2 Saturation VBG Base Excess Anion Gap Estim Creat Clear Calc Estimated GFR POC Glucose 85 100 69 Random Glucose Calcium Total Bilirubin Direct Bilirubin AST ALT Alkaline Phosphatase Ammonia Total Protein Albumin Random Vancomycin 08/25/24 08/25/24 08/25/24 04:20 06:00 07:15 VBG pH 7.43 VBG pCO2 47 VBG pO2 64 VBG HCO3 31 H VBG O2 Saturation 88.0 VBG Base Excess 6.3 Anion Gap Estim Creat Clear Calc Estimated GFR POC Glucose 58 L* 102 Random Glucose Calcium Total Bilirubin Direct Bilirubin AST ALT Alkaline Phosphatase Ammonia Total Protein Albumin Random Vancomycin Microbiology Microbiology Results: Microbiology 08/22/24 14:52 Blood Culture - Preliminary Blood - Venous No growth after 48 hours. 08/22/24 14:20 Blood Culture - Preliminary Blood - Venous No growth after 48 hours. Assessment and Plan (1) PVD (peripheral vascular disease): Status: Acute (2) ESRD needing dialysis: Status: Acute (3) Osteomyelitis: Status: Acute (4) Necrosis of finger: Status: Acute (5) Encephalopathy: Status: Acute Plan 69M PMH significant for?ESRD on HD M/W/F, insulin-dependent type 2 diabetes, peripheral vascular disease, s/p right BKA 04/[address] Cannon, seizure disorder, HFrEF, HTN, HLD, chronically on 2L home O2, GERD, and ROBERT on CPAP who presented to the ED with?worsening pain in his right hand with 3rd and 4th fingers dry gangrene. Acute encephalopathy- resolved possibly r/t hypoglyemia thoguh sx persisted despite glucose levels in low 100s- continue poc and hold insulin VBG with mild hypercapnia with pCO2 60, possibly elevated given collected shortly after dialysis. This morning pCO2 47 Cannot r/o toxic r/t morphine/oxycodone administration overnight Head CT and labs otherwise without exaplanation for encephalopathy Monitor mentation Right hand ischemic changes, 3rd and 4th fingers not septic Hand XR showing Amputation through the distal phalanx of the third digit near the metaphysis. Lucency in the anterior distal end of the remaining bone could be related to osteomyelitis or trauma. suspected infection per hand surgery and OM IV Vancomycin Orthopedic evaluation recommend next week ambutation Mon\Mon after discussing with Dr Edura CHAMBERLAIN morphine, lower dose oxy to 5mg due to above. Pain reasonably controlled per patient vancomycin trough Uncontrolled HTN Continue losartan, Amlodipine Doxazosin Chronic hypoxic respiratory failure on 2 L of home oxygen/obstructive sleep apnea on CPAP No acute hypoxia. ESRD on HD M// Continue Jessica Villalobos nephro consulted, to do HD tomorrow morning (Monday) Insulin-dependent type 2 diabetes with hypoglycemia continue Sliding-scale insulin, Lantus 20 units at bedtime Diabetic diet Seizure disorder Continue Keppra HLD/PAD aspirin Peripheral neuropathy Continue pregabalin DVT Prophylaxis: hep sq reason for continued hospitalization: Finger ischemia and infection ORthopedic surgery intervention early next week and continue IV antibiotics Quality Stroke Does the patient have a stroke diagnosis?: No VTE Prior VTE?: No VTE Risk Level:: Medical - moderate - high VTE Device Contraindication: Treatment Not Indicated VTE Drug Contraindication: N/A - Med Ordered
[2024-08-25 07:40] LABS: Hematocrit 34.0 % (42.0-52.0); Hemoglobin 10.6 g/dl (14.0-18.0); Imm Gran Abs Auto 0.11 X10*3/uL (0.00-0.03); Imm Gran Pct Auto 0.8 % (0.0-0.4); Lymphocytes Absolute Auto 1.2 X10*3/uL (1.2-4.9); Mean Corpuscular HGB Conc 31.2 g/dl (31.0-36.0); Mean Corpuscular Hemoglobin 23.2 pg (27.0-33.0); Mean Corpuscular Volume 74.4 fL (80.0-98.0); NRBC Abs Auto 0.030 X10*3/uL (0.0-0.012); NRBC Pct Auto 0.2 /100WBC (0.0-0.2); Platelet Count 164 X10*3/uL (160-400); Red Blood Count 4.57 X10*6/uL (4.60-5.80); White Blood Count 13.7 X10*3/uL (4.8-10.8)
[2024-08-25 07:51] LABS: Blood Urea Nitrogen 49 mg/dL (9-16); Calcium 8.8 mg/dL (8.4-10.2); Creatinine Clr Calc Pharmacy 10.8; Estimated Glomerular Filt Rate 9
[2024-08-25 07:52] LABS: Glucose, Whole Blood 95 mg/dL (60-115)
[2024-08-25 08:01] LABS: Anion Gap 18 (12-20); Carbon Dioxide 27 mmol/L (22-29); Chloride 94 mmol/L (96-108); Potassium 5.3 mmol/L (3.3-5.1); Sodium 134 mmol/L (135-145)
[2024-08-25] MEDS: Fluticasone/Umeclidinium/Vilanterol 100/62.5/25 BLST.W.DEV 1 PUFF INHALE (08:15)
[2024-08-25] MEDS: Sevelamer Carbonate Tablet 800 MG TABLET PO ×3 (09:36→16:56)
[2024-08-25] MEDS: Aspirin Enteric Coated 81 MG TABLET.DR PO (09:41)
[2024-08-25 10:59] LABS: Glucose, Whole Blood 180 mg/dL (60-115)
[2024-08-25 13:54] LABS: Glucose, Whole Blood 168 mg/dL (60-115)
[2024-08-25 16:34] LABS: Glucose, Whole Blood 165 mg/dL (60-115)
[2024-08-25 20:02] LABS: Glucose, Whole Blood 134 mg/dL (60-115)
[2024-08-25] MEDS: levETIRAcetam in NaCl (iso-os) 1,000 MG/100 ML PIGGYBACK 400 MG IV (21:46)
[2024-08-25] MEDS: 0.9 % Sodium Chloride Flush 3 ML SYRINGE IVFLUSH (21:55)
[2024-08-26] VITALS (8 sets, daily range): BP systolic 135–160; BP diastolic 56–78; PULSE 71–79; RESP 14–21; TEMP 36.5–37.1; O2SAT 89–99
[2024-08-26 01:22] LABS: Glucose, Whole Blood 114 mg/dL (60-115)
[2024-08-26 04:47] LABS: Glucose, Whole Blood 88 mg/dL (60-115)
[2024-08-26 07:16] LABS: Glucose, Whole Blood 80 mg/dL (60-115)
[2024-08-26] MEDS: Fluticasone/Umeclidinium/Vilanterol 100/62.5/25 BLST.W.DEV 1 PUFF INHALE (07:38)
[2024-08-26] MEDS: levETIRAcetam in NaCl (iso-os) 1,000 MG/100 ML PIGGYBACK 400 MG IV ×2 (08:08→21:24)
[2024-08-26] MEDS: Sevelamer Carbonate Tablet 800 MG TABLET PO ×2 (08:09→17:50)
[2024-08-26] MEDS: 0.9 % Sodium Chloride Flush 3 ML SYRINGE IVFLUSH ×3 (08:14→21:31)
[2024-08-26 09:16] LABS: MANUAL DIFF FLAG NO
[2024-08-26 09:23] LABS: Hematocrit 33.6 % (42.0-52.0); Hemoglobin 10.7 g/dl (14.0-18.0); Imm Gran Abs Auto 0.12 X10*3/uL (0.00-0.03); Imm Gran Pct Auto 0.7 % (0.0-0.4); Lymphocytes Absolute Auto 1.1 X10*3/uL (1.2-4.9); Mean Corpuscular HGB Conc 31.8 g/dl (31.0-36.0); Mean Corpuscular Hemoglobin 23.2 pg (27.0-33.0); Mean Corpuscular Volume 72.7 fL (80.0-98.0); NRBC Abs Auto 0.000 X10*3/uL (0.0-0.012); NRBC Pct Auto 0.0 /100WBC (0.0-0.2); Platelet Count 178 X10*3/uL (160-400); Red Blood Count 4.62 X10*6/uL (4.60-5.80); White Blood Count 16.4 X10*3/uL (4.8-10.8)
[2024-08-26 09:58] LABS: Anion Gap 23 (12-20); Blood Urea Nitrogen 64 mg/dL (9-16); Calcium 8.9 mg/dL (8.4-10.2); Carbon Dioxide 24 mmol/L (22-29); Chloride 91 mmol/L (96-108); Creatinine Clr Calc Pharmacy 8.1; Estimated Glomerular Filt Rate 7; Potassium 6.1 mmol/L (3.3-5.1); Sodium 132 mmol/L (135-145)
[2024-08-26 10:12] LABS: Glucose, Whole Blood 97 mg/dL (60-115)
--- NOTE | 2024-08-26 12:38 | HO.PM.IMPN ---
Subjective Subjective Date of Service: 08/26/24 Interval History: Follow-up for dry gangrene Mentation labile, improved yesterday however night staff mentioned confused again. Glucose levels normal Complains of pain in the right hand Answering questions appropriately Patient seen bedside with Dr. Rai Constitutional Constitutional: Reports fatigue, Denies fever(s) and Denies headache(s) Eyes Eyes: Denies change in vision ENT Ears, Nose, Mouth, and Throat: Denies headache(s) Cardiovascular Cardiovascular: Denies chest pain and Reports dyspnea Respiratory Respiratory: Reports dyspnea and Denies wheezing Gastrointestinal Gastrointestinal: Denies nausea and Denies vomiting Genitourinary Genitourinary: Denies dysuria Integumentary/Breasts Skin/Breast: Denies rash Neurologic Neurologic: Reports confusion and Denies headache(s) Psychiatric Psychiatric: Reports confusion Endocrine Endocrine: Reports fatigue Allergic/Immunologic Allergic/Immunologic: Denies wheezing Physical Exam Vital Signs: Vital Signs: Last Vital Signs Temp 97.7 F 08/26/24 07:24 Pulse 72 08/26/24 07:38 Resp 14 08/26/24 07:38 BP 157/56 H 08/26/24 07:24 Pulse Ox 96 08/26/24 07:24 O2 Del Method Nasal Cannula 08/26/24 07:24 O2 Flow Rate 2 08/26/24 07:24 BMI result Body Mass Index 27.3 General: Alert, initially somnolent however improved throughout exam. Oriented to person place and time Resp: Diminished throughout, no wheezing CVS: S1, S2, RRR GI: +BS, NT, no distention Skin: Warm, dry Neuro: Cranial nerves II-XII grossly intact bilaterally. Motor grossly intact bilaterally Extremities: No LE edema. dry gangrene R 2nd and 3rd digits. Psych: Appropriate affect Const: General: confusion Orientation/consciousness: confusion Neuro: General: confusion Objective Data Active Medications Acetaminophen (Acetaminophen 325 Mg Tablet) 650 mg PO Q6H PRN PRN Reason: Pain, Mild 1-3,fever,headache Last Admin: 08/25/24 12:20 Dose: 650 mg Documented By: SHAHZAD Albuterol Sulfate (Albuterol Sulfate 90 Mcg 8 Gm Inhaler) 2 puff INHALE Q4H PRN PRN Reason: Wheezing Albuterol/Ipratropium (Albuterol/Iprat 2.5/0.5mg 3 Ml Ampul.Neb) 3 ml INHALE QID PRN PRN Reason: Shortness of Breath Allopurinol (Allopurinol 100 Mg Tablet) 100 mg PO MOWEFR@1600 [facility] Last Admin: 08/23/24 15:20 Dose: 100 mg Documented By: HADLEY Amlodipine Besylate (Amlodipine Besylate 10 Mg Tablet) 10 mg PO DAILY [facility]; Protocol Last Admin: 08/26/24 08:09 Dose: 10 mg Documented By: TRUDY Aspirin (Aspirin Enteric Coated 81 Mg Tablet.) 81 mg PO MOWEFR@1600 [facility] Last Admin: 08/23/24 15:19 Dose: 81 mg Documented By: HADLEY Aspirin (Aspirin Enteric Coated 81 Mg Tablet.) 81 mg PO SUTUTHSA@0900 [facility] Last Admin: 08/25/24 09:41 Dose: 81 mg Documented By: STEPHIE Atorvastatin Calcium (Atorvastatin Calcium 40 Mg Tablet) 40 mg PO MOWEFR@1600 [facility] Last Admin: 08/23/24 15:20 Dose: 40 mg Documented By: HADLEY Atorvastatin Calcium (Atorvastatin Calcium 40 Mg Tablet) 40 mg PO SUTUTHSA@0900 [facility] Last Admin: 08/25/24 09:40 Dose: 40 mg Documented By: STEPHIE Calcium Carbonate (Calcium Carbonate 750 Mg Tab.Chew) 750 mg PO Q4H PRN PRN Reason: Heartburn Carvedilol (Carvedilol 6.25 Mg Tablet) 6.25 mg PO BID [facility]; Protocol Last Admin: 08/26/24 08:09 Dose: 6.25 mg Documented By: TRUDY Docusate Sodium (Docusate Sodium 100 Mg Capsule) 100 mg PO DAILY [facility] Last Admin: 08/26/24 08:09 Dose: 100 mg Documented By: TRUDY Doxazosin Mesylate (Doxazosin Mesylate 2 Mg Tablet) 4 mg PO BEDTIME [facility]; Protocol Last Admin: 08/25/24 21:00 Dose: Not Given Documented By: DAVID Non-Admin Reason: pt too drowsy to take PO meds. notified Fluticasone/Umeclidinium/Vilanterol (Fluticasone/Umeclidinium/Vilanterol 100/62.5/25 Blst.W.Dev) 1 puff INHALE RDAILY [facility] Last Admin: 08/26/24 07:38 Dose: 1 puff Documented By: JESSICA Furosemide (Furosemide 40 Mg Tablet) 80 mg PO MOWEFR@1600 [facility]; Protocol Last Admin: 08/23/24 15:19 Dose: 80 mg Documented By: HADLEY Furosemide (Furosemide 40 Mg Tablet) 80 mg PO SUTUTHSA@0900 [facility]; Protocol Last Admin: 08/25/24 10:20 Dose: 80 mg Documented By: SHAHZAD Glucose (Glucose Gel 15 Gm Gel..Gram.) 15 gm PO Q15M PRN PRN Reason: per Hypoglycemia Standing Ord. Last Admin: 08/25/24 04:50 Dose: 15 gm Documented By: HENRIETTA Heparin Sodium (Porcine) (Heparin Sodium,Porcine 5,000 Unit/Ml Vial) 5,000 unit SUBCUT Q12H [facility] Last Admin: 08/25/24 21:54 Dose: 5,000 unit Documented By: DAVID Vancomycin HCl 500 mg/ Sodium (Chloride) 110 mls @ 110 mls/hr IV ONCE ONE Stop: 08/23/24 20:59 Levetiracetam (Keppra) 1,000 mg in 100 mls @ 400 mls/hr IV Q12H [facility] Last Infusion: 08/26/24 08:30 Dose: Infused Documented By: TRUDY Insulin Glargine (Insulin Glargine,Hum.Rec.Anlog 100 Unit/Ml 10 Ml Vial) 20 unit SUBCUT BEDTIME [facility] On Hold: 08/24/24 18:51 Last Admin: 08/23/24 19:52 Dose: 20 unit Documented By: HENRIETTA Insulin Human Lispro (Insulin Lispro 100 Unit/Ml 3 Ml Vial) 0 unit SUBCUT QIDACHS [facility]; Protocol Last Admin: 08/26/24 07:55 Dose: Not Given Documented By: TRUDY Non-Admin Reason: No Insulin Coverage Losartan Potassium (Losartan Potassium 25 Mg Tablet) 25 mg PO MOWEFR@1600 [facility]; Protocol Last Admin: 08/23/24 15:20 Dose: 25 mg Documented By: HADLEY Losartan Potassium (Losartan Potassium 25 Mg Tablet) 25 mg PO SUTUTHSA@0900 [facility]; Protocol Last Admin: 08/25/24 10:12 Dose: 25 mg Documented By: SHAHZAD Magnesium Hydroxide (Milk Of Magnesia 30 Ml Oral.Susp) 30 ml PO DAILY PRN PRN Reason: Constipation Melatonin (Melatonin 3 Mg Tablet) 6 mg PO BEDTIME PRN PRN Reason: Insomnia Omeprazole (Omeprazole 20 Mg Capsule.Dr) 20 mg PO DAILY@0630 [facility] Last Admin: 08/26/24 05:05 Dose: 20 mg Documented By: DAVID Ondansetron HCl (Ondansetron Hcl 4 Mg/2 Ml Vial) 4 mg IVPUSH Q8H PRN PRN Reason: Nausea and Vomiting Oxycodone HCl (Oxycodone Hcl Immed Release 5 Mg Tablet) 5 mg PO Q6H PRN On Hold: 08/24/24 18:53 PRN Reason: Pain, Severe (Pain Scale 7-10) Pharmacy Consult (Consult Rx Vancomycin Dosing) 1 each MISCELLANE DAILY PRN PRN Reason: Consult order Pregabalin (Pregabalin 75 Mg Capsule) 75 mg PO DAILY [facility] Last Admin: 08/26/24 08:09 Dose: 75 mg Documented By: TRUDY Sevelamer Carbonate (Sevelamer Carbonate Tablet 800 Mg Tablet) 800 mg PO TIDWM [facility] Last Admin: 08/26/24 08:09 Dose: 800 mg Documented By: TRUDY Sodium Chloride (0.9 % Sodium Chloride Flush 3 Ml Syringe) 3 ml IVFLUSH QSHIFT [facility] Last Admin: 08/26/24 08:14 Dose: 3 ml Documented By: TRUDY Labs 08/26/24 08:49 08/26/24 08:49 Labs: Laboratory Results - last 24 hr 08/25/24 08/25/24 08/25/24 13:44 16:31 19:56 MCV MCH MCHC RDW Plt Count MPV Immature Gran % (Auto) Neut % (Auto) Lymph % (Auto) [place] % (Auto) Eos % (Auto) Baso % (Auto) Lymph # (Auto) [place] # (Auto) Eos # (Auto) Baso # (Auto) Abs Immat Gran (auto) Absolute Neuts (auto) Absolute Nucleated RBC Nucleated RBC % (auto) Anion Gap Estim Creat Clear Calc Estimated GFR POC Glucose 168 H 165 H 134 H Random Glucose Calcium Phosphorus 08/26/24 08/26/24 08/26/24 01:18 04:41 07:00 MCV MCH MCHC RDW Plt Count MPV Immature Gran % (Auto) Neut % (Auto) Lymph % (Auto) [place] % (Auto) Eos % (Auto) Baso % (Auto) Lymph # (Auto) [place] # (Auto) Eos # (Auto) Baso # (Auto) Abs Immat Gran (auto) Absolute Neuts (auto) Absolute Nucleated RBC Nucleated RBC % (auto) Anion Gap Estim Creat Clear Calc Estimated GFR POC Glucose 114 88 80 Random Glucose Calcium Phosphorus 08/26/24 08/26/24 08:49 10:06 MCV 72.7 L MCH 23.2 L MCHC 31.8 RDW 18.8 H Plt Count 178 MPV Not Reportable Immature Gran % (Auto) 0.7 H Neut % (Auto) 82.8 H Lymph % (Auto) 6.[address] % (Auto) 8.6 Eos % (Auto) 1.0 Baso % (Auto) 0.2 Lymph # (Auto) 1.[address] # (Auto) 1.4 H Eos # (Auto) 0.2 Baso # (Auto) 0.0 Abs Immat Gran (auto) 0.12 H Absolute Neuts (auto) 13.5 H Absolute Nucleated RBC 0.000 Nucleated RBC % (auto) 0.0 Anion Gap 23 H Estim Creat Clear Calc 8.1 Estimated GFR 7 POC Glucose 97 Random Glucose 66 Calcium 8.9 Phosphorus 8.9 H Assessment and Plan (1) PVD (peripheral vascular disease): Status: Acute (2) ESRD needing dialysis: Status: Acute (3) Osteomyelitis: Status: Acute (4) Necrosis of finger: Status: Acute (5) Encephalopathy: Status: Acute Plan 69M PMH significant for?ESRD on HD M/W/F, insulin-dependent type 2 diabetes, peripheral vascular disease, s/p right BKA 2/ by Dr. Cannon, seizure disorder, HFrEF, HTN, HLD, chronically on 2L home O2, GERD, and ROBERT on CPAP who presented to the ED with?worsening pain in his right hand with 3rd and 4th fingers dry gangrene. Acute encephalopathy possibly r/t hypoglyemia thog sx persisted despite glucose levels in low 100s- continue poc and hold insulin VBG with mild hypercapnia with pCO2 60, possibly elevated given collected shortly after dialysis. Repeat pCO2 47 yesterday Unlikely toxic as patient did not receive morphine or oxycodone overnight and continued to have encephalopathy Head CT and labs otherwise without explanation for encephalopathy Monitor mentation Right hand ischemic changes, 3rd and 4th fingers - not septic Hand XR showing Amputation through the distal phalanx of the third digit near the metaphysis. Lucency in the anterior distal end of the remaining bone could be related to osteomyelitis or trauma. suspected infection per hand surgery and OM IV Vancomycin Orthopedic plan for amputation Monday morning vancomycin trough Uncontrolled HTN Continue losartan, Amlodipine Doxazosin Chronic hypoxic respiratory failure on 2 L of home oxygen/obstructive sleep apnea on CPAP No acute hypoxia. ESRD on HD // Continue Jessica Villalobos nephro consulted hyperkalemia today, due to dialysis this morning Insulin-dependent type 2 diabetes with hypoglycemia continue Sliding-scale insulin, Lantus 20 units at bedtime Diabetic diet Seizure disorder Continue Keppra HLD/PAD aspirin Peripheral neuropathy Continue pregabalin DVT Prophylaxis: hep sq reason for continued hospitalization: Finger ischemia and infection Orthopedic surgery intervention tomorrow and continue IV antibiotics Quality Stroke Does the patient have a stroke diagnosis?: No VTE Prior VTE?: No VTE Risk Level:: Medical - moderate - high VTE Device Contraindication: Treatment Not Indicated VTE Drug Contraindication: N/A - Med Ordered
--- NOTE | 2024-08-26 13:10 | W.PM.DNNEP ---
Subjective Subjective Date of Service: 08/26/24 This patient was seen during dialysis. Interval history: following for management of ESRD on HD while here for treatment of dry gangrene right hand digits Patient reports continued fatigue at bedside today. Denies new concerns. Denies chest pain, shortness of breath, abdominal pain, nausea/vomiting, pruritus, tremors. Reports he is tired. Physical Exam Vital Signs: Vital Signs: Last Vital Signs Temp 97.7 F 08/26/24 07:24 Pulse 72 08/26/24 07:38 Resp 14 08/26/24 07:38 BP 157/56 H 08/26/24 07:24 Pulse Ox 96 08/26/24 07:24 O2 Del Method Nasal Cannula 08/26/24 07:24 O2 Flow Rate 2 08/26/24 07:24 BMI result Body Mass Index 27.3 Const: General: alert and awake Resp: Effort & Inspection: normal respiratory effort and able to speak in complete sentences Auscultation: clear to auscultation bilaterally Cardio: Rate: regular rate Rhythm: regular rhythm Heart sounds: S1 normal heart sound present and S2 normal heart sound present GI: Palpation (GI): Soft to palpation and nontender Skin: Wounds: wounds noted (right necrotic 2nd and 3rd digits ) Extrem: General: No edema and No pedal edema Assessment & Plan Assessment and plan (1) ESRD needing dialysis: Status: Acute Plan ESRD on HD MWF access: Right permcath appears slightly hypervolemic H&H 10.7 & 33.6- no indication for procrit at this time phos is 8.9, sevelamer 800mg TID with meals. Calcium 8.9. low potassium, phosphorous, and sodium diet fluid restriction 1.5L continue to monitor electrolytes renal function studies daily regular blood pressure checks will continue to follow Discussed with Dr Cowart. Time Spent With Patient Time: Total time managing care of this patient today ____ minutes. Procedures Date of Service Date of Service: 08/26/24
[2024-08-26 15:32] LABS: Glucose, Whole Blood 127 mg/dL (60-115)
--- NOTE | 2024-08-26 17:03 | P.PNOP_ITS ---
Subjective Subjective Date of Service: 08/26/24 Interval history: 69-year-old male with necrotic right middle and index fingers Patient reports significant pain in these digits Patient is arousable but falls asleep multiple times during course of interview No other acute complaints or concerns Physical Exam Vital Signs: Vital Signs: Last Vital Signs Temp 97.9 F 08/26/24 15:42 Pulse 79 08/26/24 15:42 Resp 18 08/26/24 15:42 BP 160/77 H 08/26/24 15:42 Pulse Ox 95 08/26/24 15:42 O2 Del Method Nasal Cannula 08/26/24 15:42 O2 Flow Rate 2 08/26/24 15:42 BMI result Body Mass Index 27.3 Extrem: Other: Evaluation of Right Upper Extremity: The patient is alert, oriented, and in no acute distress Patient is resting comfortably med He is seen today with his adult son who speaks [place] and Citizen Of [place] and also was able to act as an stage set up worker. A needle was also present act as an stage set up worker. ROM: With encouragement he could bring his fingertips ~2cm from his palm, with his middle fingertip ~3cm from his palm He was able to bend at the middle finger PIP joint today Finger necrosis: Index finger: There has been significant increase in necrotic tissue since previous evaluation in our office. No evidence of healing. I do not believe he has the capability to heal this wound. He finds the finger to be painful. Middle finger: black mummification of the distal aspect of the finger, extending from the MCP joint distally. There is also an area of necrotic skin on the dorsal aspect of the distal phalanx which does not appear to be healing. There is exposed bone noted that also appears to be necrotic No evidence of active infection. Procedures Date of Service Date of Service: 08/26/24 Progress Note: A&P Assessment and plan (1) Necrosis of finger: Status: Acute (2) Dry gangrene: Status: Acute Plan Necrotic index and middle fingers of right hand Plan of care as discussed with both the patient and his son Nestor, who is also his healthcare proxy I educated the patient about the condition. I discussed both operative and nonoperative treatment options. The patient would like to proceed with surgery. The risks and benefits of operative treatment were discussed with the patient and the patient wishes to proceed with surgery. These risks include, but are not limited to, risk of damage to blood vessels, nerves, tendons, infection, recurrence, incomplete relief of preoperative symptoms, persistent pain, possible need for further surgery, and the risks associated with regional blocks and/or anesthesia. Plan is to take the patient to the operating room at some point in the next few weeks for the following procedures: 1. Amputation of right middle and index fingers with Dr. Witt NPO at midnight Continue with all other recommendations per Medicine and other consulting services Time Spent With Patient Time: Total time managing care of this patient today ____ minutes. Quality Stroke Does the patient have a stroke diagnosis?: No VTE Prior VTE?: No VTE Risk Level:: Medical - moderate - high VTE Device Contraindication: Treatment Not Indicated VTE Drug Contraindication: N/A - Med Ordered
[2024-08-26] MEDS: Aspirin Enteric Coated 81 MG TABLET.DR PO (17:49)
--- NOTE | 2024-08-26 18:24 | PC.NURSE ---
patient. remains somewhat lethargic and this RN crushed his meds and he ate with pudding, had to double check that he wasn't pocketing his food as he did this with dinner which was a poor amount per [employer]. messaged the provider but unavailable. will pass on to nurse taking over tonight
[2024-08-26 19:29] LABS: Glucose, Whole Blood 131 mg/dL (60-115)
[2024-08-26 20:11] LABS: Venous Blood Gas Refer to POC result
[2024-08-26 20:11] LABS: VBG HCO3 33 mmol/L (22-26); VBG O2 % Saturation 92.0 %
[2024-08-26 23:07] LABS: Glucose, Whole Blood 121 mg/dL (60-115)
[2024-08-27] VITALS (12 sets, daily range): BP systolic 130–172; BP diastolic 43–80; PULSE 56–75; RESP 12–18; TEMP 36.1–37.6; O2SAT 93–100
[2024-08-27 01:24] LABS: Glucose, Whole Blood 95 mg/dL (60-115)
[2024-08-27 03:16] LABS: Glucose, Whole Blood 90 mg/dL (60-115)
[2024-08-27 06:44] LABS: Hematocrit 33.1 % (42.0-52.0); Hemoglobin 10.4 g/dl (14.0-18.0); Mean Corpuscular HGB Conc 31.4 g/dl (31.0-36.0); Mean Corpuscular Hemoglobin 22.9 pg (27.0-33.0); Mean Corpuscular Volume 72.7 fL (80.0-98.0); NRBC Abs Auto 0.000 X10*3/uL (0.0-0.012); NRBC Pct Auto 0.0 /100WBC (0.0-0.2); Platelet Count 189 X10*3/uL (160-400); Red Blood Count 4.55 X10*6/uL (4.60-5.80); White Blood Count 14.6 X10*3/uL (4.8-10.8)
[2024-08-27 06:56] LABS: Anion Gap 20 (12-20); Blood Urea Nitrogen 37 mg/dL (9-16); Calcium 9.2 mg/dL (8.4-10.2); Carbon Dioxide 25 mmol/L (22-29); Chloride 96 mmol/L (96-108); Creatinine Clr Calc Pharmacy 12.4; Estimated Glomerular Filt Rate 11; Potassium 4.5 mmol/L (3.3-5.1); Sodium 136 mmol/L (135-145)
[2024-08-27 07:22] LABS: Glucose, Whole Blood 75 mg/dL (60-115)
[2024-08-27] MEDS: levETIRAcetam in NaCl (iso-os) 1,000 MG/100 ML PIGGYBACK 400 MG IV ×2 (08:02→20:58)
[2024-08-27] MEDS: 0.9 % Sodium Chloride Flush 3 ML SYRINGE IVFLUSH (08:04)
[2024-08-27 08:40] LABS: Glucose, Whole Blood 166 mg/dL (60-115)
--- NOTE | 2024-08-27 09:38 | P.PNNP_ITS ---
Subjective Subjective Date of Service: 08/27/24 Interval history: following for management of ESRD on HD while here for treatment of dry gangrene right hand digits Patient states he is feeling good, but tired. Denies new concerns. Physical Exam 2 Vital Signs: Vital Signs: Last Vital Signs Temp 97.6 F 08/27/24 07:21 Pulse 73 08/27/24 07:21 Resp 16 08/27/24 07:21 BP 172/78 H 08/27/24 07:21 Pulse Ox 93 08/27/24 07:21 O2 Del Method Nasal Cannula 08/27/24 07:21 O2 Flow Rate 1 08/27/24 07:21 BMI result Body Mass Index 27.3 Const: General: lethargic Orientation/consciousness: lethargic Resp: Effort & Inspection: normal respiratory effort and able to speak in complete sentences Auscultation: clear to auscultation bilaterally Cardio: Rate: regular rate Rhythm: regular rhythm Heart sounds: S1 normal heart sound present and S2 normal heart sound present GI: Palpation (GI): Soft to palpation and nontender Skin: Wounds: wounds noted (right necrotic 2nd and 3rd digits ) Extrem: General: No edema and No pedal edema Objective Data Labs 08/27/24 06:07 08/27/24 06:07 Labs: Laboratory Results - last 24 hr 08/26/24 08/26/24 08/26/24 08:49 10:06 15:25 WBC RBC Hgb Hct MCV MCH MCHC RDW Plt Count MPV Absolute Nucleated RBC Nucleated RBC % (auto) VBG pH VBG pCO2 VBG pO2 VBG HCO3 VBG O2 Saturation VBG Base Excess Sodium 132 L Potassium 6.1 H* Chloride 91 L Carbon Dioxide 24 Anion Gap 23 H BUN 64 H Creatinine 7.92 H* Estim Creat Clear Calc 8.1 Estimated GFR 7 POC Glucose 97 127 H Random Glucose 66 Calcium 8.9 Phosphorus 8.9 H Random Vancomycin 08/26/24 08/26/24 08/26/24 16:57 19:16 20:07 WBC RBC Hgb Hct MCV MCH MCHC RDW Plt Count MPV Absolute Nucleated RBC Nucleated RBC % (auto) VBG pH 7.41 VBG pCO2 51 VBG pO2 73 VBG HCO3 33 H VBG O2 Saturation 92.0 VBG Base Excess 7.1 Sodium Potassium Chloride Carbon Dioxide Anion Gap BUN Creatinine Estim Creat Clear Calc Estimated GFR POC Glucose 131 H Random Glucose Calcium Phosphorus Random Vancomycin 12.3 L 08/26/24 08/27/24 08/27/24 22:56 01:20 03:11 WBC RBC Hgb Hct MCV MCH MCHC RDW Plt Count MPV Absolute Nucleated RBC Nucleated RBC % (auto) VBG pH VBG pCO2 VBG pO2 VBG HCO3 VBG O2 Saturation VBG Base Excess Sodium Potassium Chloride Carbon Dioxide Anion Gap BUN Creatinine Estim Creat Clear Calc Estimated GFR POC Glucose 121 H 95 90 Random Glucose Calcium Phosphorus Random Vancomycin 08/27/24 08/27/24 08/27/24 06:07 07:02 08:36 WBC 14.6 H RBC 4.55 L Hgb 10.4 L Hct 33.1 L MCV 72.7 L MCH 22.9 L MCHC 31.4 RDW 18.8 H Plt Count 189 MPV Not Reportable Absolute Nucleated RBC 0.000 Nucleated RBC % (auto) 0.0 VBG pH VBG pCO2 VBG pO2 VBG HCO3 VBG O2 Saturation VBG Base Excess Sodium 136 Potassium 4.5 D Chloride 96 Carbon Dioxide 25 Anion Gap 20 BUN 37 H Creatinine 5.19 H* Estim Creat Clear Calc 12.4 Estimated GFR 11 POC Glucose 75 166 H Random Glucose 76 Calcium 9.2 Phosphorus Random Vancomycin Microbiology Microbiology Results: Microbiology 08/22/24 14:52 Blood - Venous Blood Culture - Preliminary No growth after 48 hours. 08/22/24 14:20 Blood - Venous Blood Culture - Preliminary No growth after 48 hours. Procedures Date of Service Date of Service: 08/27/24 Assessment & Plan Assessment and plan (1) ESRD needing dialysis: Status: Acute Plan ESRD on HD MWF access: Right permcath appears slightly euvolemic H&H 10.4 & 33.1- no indication for procrit at this time phos is 8.9, ensure sevelamer 800mg TID with meals. Calcium 8.9. low potassium, phosphorous, and sodium diet fluid restriction 1.5L continue to monitor electrolytes renal function studies daily blood pressure soboptimal- increase carvedilol to 12.5mg BID. will continue to follow Discussed with Dr Cowart. Time Spent With Patient Time: Total time managing care of this patient today ____ minutes. Progress Note: Quality Stroke Does the patient have a stroke diagnosis?: No
--- NOTE | 2024-08-27 11:57 | MHC.SHP ---
Pre-Procedural Eval Section A - 24 Hr Update-Section A only Date of Service: 08/27/24 The patient is an INPATIENT: Yes Changes since office visit: No Cold of Flu in the past 2 weeks, No New Medical Problems, No Changes in Medication and No Patient answered all questions The patient has been examined within 24 hours of the surgical procedure. The History & Physical has been completed within 30 days and I have reviewed it.: Yes Section B - Complete if H&P > 30 days Chief Complaint: gangrene Allergies: Allergies Allergy/AdvReac Type Severity Reaction Status Date / Time Iodinated Contrast Media Allergy Severe Facial Verified 08/22/24 11:22 (Contrast Dye) Swelling hydralazine AdvReac Severe vasculitis Verified 08/22/24 11:22 Plan I have reviewed the history and physical and performed a pertinent physical examination on my patient. No changes have occurred unless specified. Time Spent With Patient Time: Total time managing care of this patient today ____ minutes.
--- NOTE | 2024-08-27 12:28 | PC.NURSE ---
20g left wrist removed. leaking. new iv started lennie well
[2024-08-27 12:35] LABS: Glucose, Whole Blood 101 mg/dL (60-115)
--- NOTE | 2024-08-27 12:50 | P.CONAN_ITS ---
HPI - Anesthesia Eval Consult details Narrative: 69 yo M presenting for right hand middle and index finger amputation. ESRD on HD. O2 dependent. [facility] Active Problems Active Problems: All Active Problems (Updated 08/24/24 @ 11:47 by KYLAH Morales) Encephalopathy (Acute) Necrosis of finger (Acute) Numbness and tingling in right hand (Acute) AKA stump complication (Acute) Cellulitis (Acute) ESRD needing dialysis (Acute) Infection of toe (Acute) Pleural effusion (Acute) Acute hypokalemia (Acute) Osteomyelitis (Acute) Somatization disorder (Acute) Trapped lung (Acute) Recurrent pleural effusion on right (Chronic) Exudative pleural effusion (Acute) Hyponatremia (Acute) Hyperkalemia (Acute) Type 2 diabetes mellitus (Acute) Dry gangrene (Acute) PVD (peripheral vascular disease) (Acute) Postop check (Acute) Acute on chronic systolic and diastolic heart failure, NYHA class 3 (Chronic) Past Medical History Medical History Above knee amputation of right lower extremity Left ventricular systolic dysfunction (LVSD) PVD (peripheral vascular disease) Postop check Acute pericardial effusion Right sided weakness Dehiscence of wound Peripheral arterial disease Dry gangrene Cellulitis of right foot HFrEF (heart failure with reduced ejection fraction) Chronic combined systolic and diastolic CHF (congestive heart failure) Chronic pericardial effusion Arthritis Asthma Restless leg syndrome Acute on chronic systolic and diastolic heart failure, NYHA class 3 Anemia Occlusive thrombus Pulmonary edema ROBERT (obstructive sleep apnea) Type 2 diabetes mellitus Hyperlipidemia Hypertension A-V fistula ESRD on dialysis Falling Family History Family History Father No problems noted. Mother No problems noted. Family history of problems with anesthesia: No Surgical History Surgical History Status post creation of pericardial window Hx of right BKA History of transmetatarsal amputation of foot Status post transmetatarsal amputation of right foot Postop check History of surgery H/O colonoscopy Recurrent pleural effusion Pleural effusion on right (07/13/23) History of Problems with Anesthesia: No Social History Social History Household Members: Family Household Members Other:: son Housing: House Are you a primary cardiac care unit nurse to a significant other at home: No Do you presently have visiting nurse or other home services: Yes ([facility] and [employer] (son) everyday) Unable to assess alcohol history related to: Unknown Alcohol intake: former Comment: n Patient Tobacco Use Status: Former Tobacco user Tobacco use type: Cigarette Second Hand Smoke Exposure: No Advance Directives Date on File: 10/04/23 service: No Current occupational status: disabled 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 Meds Allergies Allergy/AdvReac Type Severity Reaction Status Date / Time Iodinated Contrast Media Allergy Severe Facial Verified 08/22/24 11:22 (Contrast Dye) Swelling hydralazine AdvReac Severe vasculitis Verified 08/22/24 11:22 Active Medications: Current Medications Acetaminophen (Acetaminophen 325 Mg Tablet) 650 mg PO Q6H PRN PRN Reason: Pain, Mild 1-3,fever,headache Last Admin: 08/25/24 12:20 Dose: 650 mg Albuterol Sulfate (Albuterol Sulfate 90 Mcg 8 Gm Inhaler) 2 puff INHALE Q4H PRN PRN Reason: Wheezing Albuterol/Ipratropium (Albuterol/Iprat 2.5/0.5mg 3 Ml Ampul.Neb) 3 ml INHALE QID PRN PRN Reason: Shortness of Breath Allopurinol (Allopurinol 100 Mg Tablet) 100 mg PO MOWEFR@1600 [facility] Last Admin: 08/26/24 17:51 Dose: 100 mg Amlodipine Besylate (Amlodipine Besylate 10 Mg Tablet) 10 mg PO DAILY [facility]; Protocol Last Admin: 08/27/24 08:02 Dose: 10 mg Aspirin (Aspirin Enteric Coated 81 Mg Tablet.) 81 mg PO MOWEFR@1600 [facility] Last Admin: 08/26/24 17:49 Dose: 81 mg Aspirin (Aspirin Enteric Coated 81 Mg Tablet.) 81 mg PO SUTUTHSA@0900 [facility] Last Admin: 08/27/24 07:36 Dose: Not Given Atorvastatin Calcium (Atorvastatin Calcium 40 Mg Tablet) 40 mg PO MOWEFR@1600 [facility] Last Admin: 08/26/24 17:51 Dose: 40 mg Atorvastatin Calcium (Atorvastatin Calcium 40 Mg Tablet) 40 mg PO SUTUTHSA@0900 [facility] Last Admin: 08/27/24 08:04 Dose: 40 mg Calcium Carbonate (Calcium Carbonate 750 Mg Tab.Chew) 750 mg PO Q4H PRN PRN Reason: Heartburn Carvedilol (Carvedilol 12.5 Mg Tablet) 12.5 mg PO BID [facility]; Protocol Dextrose (Dextrose 50 % 25 Gm/50 Ml Syringe) 25 gm IVPUSH Q15M PRN; Protocol PRN Reason: per Hypoglycemia Standing Ord. Last Admin: 08/27/24 07:59 Dose: 25 gm Docusate Sodium (Docusate Sodium 100 Mg Capsule) 100 mg PO DAILY [facility] Last Admin: 08/27/24 08:52 Dose: Not Given Doxazosin Mesylate (Doxazosin Mesylate 2 Mg Tablet) 4 mg PO BEDTIME [facility]; Protocol Last Admin: 08/26/24 21:30 Dose: 4 mg Fentanyl (Fentanyl Citrate/Pf 100 Mcg/2 Ml Vial) 25 mcg IVPUSH Q5M PRN PRN Reason: Pain, Moderate to Severe (Pain Scale 4-10) Stop: 08/27/24 19:29 Fluticasone/Umeclidinium/Vilanterol (Fluticasone/Umeclidinium/Vilanterol 100/62.5/25 Blst.W.Dev) 1 puff INHALE RDAILY [facility] Last Admin: 08/27/24 08:18 Dose: Not Given Furosemide (Furosemide 40 Mg Tablet) 80 mg PO MOWEFR@1600 [facility]; Protocol Last Admin: 08/26/24 17:50 Dose: 80 mg Furosemide (Furosemide 40 Mg Tablet) 80 mg PO SUTUTHSA@0900 [facility]; Protocol Last Admin: 08/27/24 08:03 Dose: 80 mg Glucose (Glucose Gel 15 Gm Gel..Gram.) 15 gm PO Q15M PRN PRN Reason: per Hypoglycemia Standing Ord. Last Admin: 08/25/24 04:50 Dose: 15 gm Heparin Sodium (Porcine) (Heparin Sodium,Porcine 5,000 Unit/Ml Vial) 5,000 unit SUBCUT Q12H [facility] On Hold: 08/27/24 00:00 Last Admin: 08/26/24 21:26 Dose: 5,000 unit Vancomycin HCl 500 mg/ Sodium (Chloride) 110 mls @ 110 mls/hr IV ONCE ONE Stop: 08/23/24 20:59 Levetiracetam (Keppra) 1,000 mg in 100 mls @ 400 mls/hr IV Q12H [facility] Last Infusion: 08/27/24 08:45 Dose: Infused Dextrose/Sodium Chloride (D5ns) 1,000 mls @ 50 mls/hr IVCONT .Q20H [facility] Stop: 08/28/24 03:59 Last Admin: 08/27/24 08:18 Dose: 50 mls/hr Insulin Glargine (Insulin Glargine,Hum.Rec.Anlog 100 Unit/Ml 10 Ml Vial) 20 unit SUBCUT BEDTIME [facility] On Hold: 08/24/24 18:51 Last Admin: 08/23/24 19:52 Dose: 20 unit Insulin Human Lispro (Insulin Lispro 100 Unit/Ml 3 Ml Vial) 0 unit SUBCUT QIDACHS [facility]; Protocol Last Admin: 08/27/24 12:31 Dose: Not Given Losartan Potassium (Losartan Potassium 25 Mg Tablet) 25 mg PO MOWEFR@1600 [facility]; Protocol Last Admin: 08/26/24 17:49 Dose: 25 mg Losartan Potassium (Losartan Potassium 25 Mg Tablet) 25 mg PO SUTUTHSA@0900 [facility]; Protocol Last Admin: 08/27/24 08:53 Dose: 25 mg Magnesium Hydroxide (Milk Of Magnesia 30 Ml Oral.Susp) 30 ml PO DAILY PRN PRN Reason: Constipation Melatonin (Melatonin 3 Mg Tablet) 6 mg PO BEDTIME PRN PRN Reason: Insomnia Naloxone HCl (Naloxone Hcl 0.4 Mg/Ml Vial) 0.04 mg IVPUSH Q5M PRN PRN Reason: Excessive sedation or RR < 8 Omeprazole (Omeprazole 20 Mg Capsule.) 20 mg PO DAILY@0630 [facility] Last Admin: 08/27/24 07:32 Dose: Not Given Ondansetron HCl (Ondansetron Hcl 4 Mg/2 Ml Vial) 4 mg IVPUSH Q8H PRN PRN Reason: Nausea and Vomiting Oxycodone HCl (Oxycodone Hcl Immed Release 5 Mg Tablet) 5 mg PO Q6H PRN On Hold: 08/24/24 18:53 PRN Reason: Pain, Severe (Pain Scale 7-10) Pharmacy Consult (Consult Rx Vancomycin Dosing) 1 each MISCELLANE DAILY PRN PRN Reason: Consult order Pregabalin (Pregabalin 75 Mg Capsule) 75 mg PO DAILY [facility] Last Admin: 08/27/24 08:05 Dose: Not Given Sevelamer Carbonate (Sevelamer Carbonate Tablet 800 Mg Tablet) 800 mg PO TIDWM [facility] Last Admin: 08/27/24 12:31 Dose: Not Given Sodium Chloride (0.9 % Sodium Chloride Flush 3 Ml Syringe) 3 ml IVFLUSH QSIDFT [facility] Last Admin: 08/27/24 08:04 Dose: 3 ml Home Medications ?Medication ?Instructions ?Recorded ?Confirmed ?Last Taken ?Type allopurinol 100 mg tablet 100 mg PO MOWEFR@159908/22/24 08/21/24 History atorvastatin 40 mg tablet 40 mg PO SUTUTHSA@0900 04/1908/22/24 08/21/24 History doxazosin 4 mg tablet 4 mg PO BEDTIME 04/19/2208/21/24 History furosemide 80 mg tablet 80 mg PO SUTUTHSA@0900 04/1908/22/24 08/21/24 History omeprazole 20 mg capsule,delayed 20 mg PO DAILY@0630 0 04/19/22 08/22/24 08/21/24 History release aspirin 81 mg tablet,delayed 81 mg PO SUTUTHSA@0900 08/22/24 08/21/24 History release pregabalin 75 mg capsule 75 mg PO DAILY 06/20/2308/0408/21/24 History aspirin 81 mg tablet,delayed 81 mg PO MOWEFR@03/0808/22/24 08/21/24 History release atorvastatin 40 mg tablet 40 mg PO MOWEFR@159908/22/24 08/21/24 History fluticasone fur. 100 mcg-umeclid 1 inh inhalation FELICIA Y 04/05/24 08/22/24 08/21/24 History 62.5 mcg-vilant 25 mcg inhalat.powder (Trelegy Ellipta) furosemide 80 mg tablet 80 mg PO MOWEFR@159908/22/24 08/21/24 History losartan 25 mg tablet 25 mg PO MOWEFR@159908/22/24 08/21/24 History losartan 25 mg tablet 25 mg PO SUTUTHSA@0900 04/0508/22/24 08/21/24 History insulin glargine 100 unit/mL (3 22 unit subcut BEDTIME 05/01/24 08/22/24 08/21/24 History mL) subcutaneous pen (Lantus Solostar U-100 Insulin) acetaminophen 500 mg tablet 1,000 mg PO Q8H PRN Pain 0 05/26/24 08/22/24 Unknown History amlodipine 10 mg tablet 10 mg PO DAILY 05/26/2408/0408/21/24 History calcium carbonate (Calcium 500) 500 mg PO TID 05/26/24 08/22/24 08/21/24 History docusate sodium 100 mg capsule 100 mg PO DAILY 5 08/22/24 08/21/24 History insulin lispro 100 unit/mL See Rx Instructions .Route .COMPLEX 05/26/24 08/22/24 08/21/24 History subcutaneous solution (Humalog U-100 Insulin) albuterol sulfate 90 mcg/actuation 2 puff inhalation Q 4H PRN wheezing 08/22/24 08/22/24 Unknown History aerosol inhaler (Ventolin HFA) carvedilol 6.25 mg tablet 6.25 mg PO BID 08/22/2408/04 Unknown History ipratropium 0.5 mg-albuterol 3 mg 3 ml inhalation QID PRN Shortness 08/22/24 08/22/24 08/21/24 History (2.5 mg base)/3 mL nebulization Of Breath soln sucroferric oxyhydroxide 500 mg 500 mg PO TID 08/22/24 08/22/24 08/21/24 History chewable tablet (Velphoro) Exam Exam Date and Time: 08/27/24 1250 Height,Weight and Vital Signs: Height 5 ft 4 in Weight 72.2 kg Last Vital Signs Temp 98.6 F 08/27/24 12:22 Pulse 68 08/27/24 12:22 Resp 16 08/27/24 12:22 BP 167/77 H 08/27/24 12:22 Pulse Ox 95 08/27/24 12:22 O2 Del Method Nasal Cannula 08/27/24 12:22 O2 Flow Rate 4 08/27/24 12:22 Pertinent Lab Results Pertinent Lab Results: Laboratory Tests 08/22/24 08/22/24 08/22/24 11:41 14:20 16:08 WBC 16.3 H RBC 4.98 D Hgb 11.4 L Hct 37.1 L MCV 74.5 L MCH 22.9 L MCHC 30.7 L RDW 19.9 H Plt Count 194 MPV Not Reportable Immature Gran % (Auto) 0.4 Neut % (Auto) 86.4 H Lymph % (Auto) 7.2 L Ness % (Auto) 5.5 Eos % (Auto) 0.3 Baso % (Auto) 0.2 Lymph # (Auto) 1.2 Ness # (Auto) 0.9 Eos # (Auto) 0.1 Baso # (Auto) 0.0 Abs Immat Gran (auto) 0.07 H Absolute Neuts (auto) 14.1 H Absolute Nucleated RBC 0.030 H Nucleated RBC % (auto) 0.2 VBG pH VBG pCO2 VBG pO2 VBG HCO3 VBG O2 Saturation VBG Base Excess Sodium 137 Potassium 5.0 Chloride 96 Carbon Dioxide 27 Anion Gap 19 BUN 54 H Creatinine 6.03 H* Estim Creat Clear Calc 10.8 Estimated GFR 9 POC Glucose 381 H* Random Glucose 392 H* Lactic Acid 1.6 Calcium 8.6 Phosphorus Magnesium 1.6 Total Bilirubin 0.5 Direct Bilirubin AST 23 ALT 24 Alkaline Phosphatase 159 H Ammonia C-Reactive Protein 16.41 H Total Protein 7.1 Albumin 3.5 Random Vancomycin 08/22/24 08/22/24 08/22/24 17:11 18:49 21:05 WBC RBC Hgb Hct MCV MCH MCHC RDW Plt Count MPV Immature Gran % (Auto) Neut % (Auto) Lymph % (Auto) Ness % (Auto) Eos % (Auto) Baso % (Auto) Lymph # (Auto) Ness # (Auto) Eos # (Auto) Baso # (Auto) Abs Immat Gran (auto) Absolute Neuts (auto) Absolute Nucleated RBC Nucleated RBC % (auto) VBG pH VBG pCO2 VBG pO2 VBG HCO3 VBG O2 Saturation VBG Base Excess Sodium Potassium Chloride Carbon Dioxide Anion Gap BUN Creatinine Estim Creat Clear Calc Estimated GFR POC Glucose 405 H* 179 H 82 Random Glucose Lactic Acid Calcium Phosphorus Magnesium Total Bilirubin Direct Bilirubin AST ALT Alkaline Phosphatase Ammonia C-Reactive Protein Total Protein Albumin Random Vancomycin 08/23/24 08/23/24 08/23/24 02:46 06:33 06:55 WBC 15.8 H RBC 4.77 Hgb 11.0 L Hct 35.1 L MCV 73.6 L MCH 23.1 L MCHC 31.3 RDW 19.4 H Plt Count 183 MPV Not Reportable Immature Gran % (Auto) Neut % (Auto) Lymph % (Auto) Ness % (Auto) Eos % (Auto) Baso % (Auto) Lymph # (Auto) Ness # (Auto) Eos # (Auto) Baso # (Auto) Abs Immat Gran (auto) Absolute Neuts (auto) Absolute Nucleated RBC 0.020 H Nucleated RBC % (auto) 0.1 VBG pH VBG pCO2 VBG pO2 VBG HCO3 VBG O2 Saturation VBG Base Excess Sodium Potassium Chloride Carbon Dioxide Anion Gap BUN Creatinine Estim Creat Clear Calc Estimated GFR POC Glucose 184 H 192 H Random Glucose Lactic Acid Calcium Phosphorus Magnesium Total Bilirubin Direct Bilirubin AST ALT Alkaline Phosphatase Ammonia C-Reactive Protein Total Protein Albumin Random Vancomycin 08/23/24 08/23/24 08/23/24 10:48 11:49 16:05 WBC RBC Hgb Hct MCV MCH MCHC RDW Plt Count MPV Immature Gran % (Auto) Neut % (Auto) Lymph % (Auto) Ness % (Auto) Eos % (Auto) Baso % (Auto) Lymph # (Auto) Ness # (Auto) Eos # (Auto) Baso # (Auto) Abs Immat Gran (auto) Absolute Neuts (auto) Absolute Nucleated RBC Nucleated RBC % (auto) VBG pH VBG pCO2 VBG pO2 VBG HCO3 VBG O2 Saturation VBG Base Excess Sodium 136 Potassium 5.6 H Chloride 95 L Carbon Dioxide 25 Anion Gap 22 H BUN 70 H Creatinine 7.76 H* Estim Creat Clear Calc 8.2 Estimated GFR 7 POC Glucose 174 H 190 H Random Glucose 183 H Lactic Acid Calcium 8.6 Phosphorus 7.7 H Magnesium Total Bilirubin Direct Bilirubin AST ALT Alkaline Phosphatase Ammonia C-Reactive Protein Total Protein Albumin Random Vancomycin 08/23/24 08/24/24 08/24/24 20:34 06:33 10:09 WBC 15.9 H RBC 4.59 L Hgb 10.5 L Hct 33.8 L MCV 73.6 L MCH 22.9 L MCHC 31.1 RDW 19.4 H Plt Count 180 MPV Not Reportable Immature Gran % (Auto) 0.5 H Neut % (Auto) 85.0 H Lymph % (Auto) 5.2 L Ness % (Auto) 7.3 Eos % (Auto) 1.8 Baso % (Auto) 0.2 Lymph # (Auto) 0.8 L Ness # (Auto) 1.2 Eos # (Auto) 0.3 Baso # (Auto) 0.0 Abs Immat Gran (auto) 0.08 H Absolute Neuts (auto) 13.5 H Absolute Nucleated RBC 0.030 H Nucleated RBC % (auto) 0.2 VBG pH VBG pCO2 VBG pO2 VBG HCO3 VBG O2 Saturation VBG Base Excess Sodium 138 Potassium 4.5 Chloride 97 Carbon Dioxide 27 Anion Gap 19 BUN 56 H Creatinine 6.06 H* Estim Creat Clear Calc 10.6 Estimated GFR 9 POC Glucose 200 H 50 L* Random Glucose 84 Lactic Acid Calcium 8.6 Phosphorus Magnesium Total Bilirubin Direct Bilirubin AST ALT Alkaline Phosphatase Ammonia C-Reactive Protein Total Protein Albumin Random Vancomycin 08/24/24 08/24/24 08/24/24 10:37 10:47 10:58 WBC RBC Hgb Hct MCV MCH MCHC RDW Plt Count MPV Immature Gran % (Auto) Neut % (Auto) Lymph % (Auto) Ness % (Auto) Eos % (Auto) Baso % (Auto) Lymph # (Auto) Ness # (Auto) Eos # (Auto) Baso # (Auto) Abs Immat Gran (auto) Absolute Neuts (auto) Absolute Nucleated RBC Nucleated RBC % (auto) VBG pH VBG pCO2 VBG pO2 VBG HCO3 VBG O2 Saturation VBG Base Excess Sodium Potassium Chloride Carbon Dioxide Anion Gap BUN Creatinine Estim Creat Clear Calc Estimated GFR POC Glucose 88 101 Random Glucose Lactic Acid Calcium Phosphorus Magnesium Total Bilirubin Direct Bilirubin AST ALT Alkaline Phosphatase Ammonia C-Reactive Protein Total Protein Albumin Random Vancomycin 16.7 08/24/24 08/24/24 08/24/24 11:38 11:47 15:12 WBC RBC Hgb Hct MCV MCH MCHC RDW Plt Count MPV Immature Gran % (Auto) Neut % (Auto) Lymph % (Auto) Ness % (Auto) Eos % (Auto) Baso % (Auto) Lymph # (Auto) Ness # (Auto) Eos # (Auto) Baso # (Auto) Abs Immat Gran (auto) Absolute Neuts (auto) Absolute Nucleated RBC Nucleated RBC % (auto) VBG pH 7.38 VBG pCO2 60 VBG pO2 58 VBG HCO3 36 H VBG O2 Saturation 83.0 VBG Base Excess 9.0 Sodium 140 Potassium 4.1 Chloride 97 Carbon Dioxide 30 H Anion Gap 17 BUN 35 H Creatinine 4.61 H* Estim Creat Clear Calc 13.9 Estimated GFR 13 POC Glucose 63 Random Glucose 101 Lactic Acid Calcium 9.0 Phosphorus Magnesium Total Bilirubin 0.5 Direct Bilirubin 0.3 AST 18 ALT 19 Alkaline Phosphatase 143 H Ammonia 32 C-Reactive Protein Total Protein 7.0 Albumin 3.4 L Random Vancomycin 08/24/24 08/24/24 08/24/24 15:31 15:54 20:26 WBC RBC Hgb Hct MCV MCH MCHC RDW Plt Count MPV Immature Gran % (Auto) Neut % (Auto) Lymph % (Auto) Ness % (Auto) Eos % (Auto) Baso % (Auto) Lymph # (Auto) Ness # (Auto) Eos # (Auto) Baso # (Auto) Abs Immat Gran (auto) Absolute Neuts (auto) Absolute Nucleated RBC Nucleated RBC % (auto) VBG pH VBG pCO2 VBG pO2 VBG HCO3 VBG O2 Saturation VBG Base Excess Sodium Potassium Chloride Carbon Dioxide Anion Gap BUN Creatinine Estim Creat Clear Calc Estimated GFR POC Glucose 59 L* 85 100 Random Glucose Lactic Acid Calcium Phosphorus Magnesium Total Bilirubin Direct Bilirubin AST ALT Alkaline Phosphatase Ammonia C-Reactive Protein Total Protein Albumin Random Vancomycin 08/25/24 08/25/24 08/25/24 01:09 04:20 06:00 WBC RBC Hgb Hct MCV MCH MCHC RDW Plt Count MPV Immature Gran % (Auto) Neut % (Auto) Lymph % (Auto) Ness % (Auto) Eos % (Auto) Baso % (Auto) Lymph # (Auto) Ness # (Auto) Eos # (Auto) Baso # (Auto) Abs Immat Gran (auto) Absolute Neuts (auto) Absolute Nucleated RBC Nucleated RBC % (auto) VBG pH VBG pCO2 VBG pO2 VBG HCO3 VBG O2 Saturation VBG Base Excess Sodium Potassium Chloride Carbon Dioxide Anion Gap BUN Creatinine Estim Creat Clear Calc Estimated GFR POC Glucose 69 58 L* 102 Random Glucose Lactic Acid Calcium Phosphorus Magnesium Total Bilirubin Direct Bilirubin AST ALT Alkaline Phosphatase Ammonia C-Reactive Protein Total Protein Albumin Random Vancomycin 08/25/24 08/25/24 08/25/24 07:11 07:15 07:40 WBC 13.7 H RBC 4.57 L Hgb 10.6 L Hct 34.0 L MCV 74.4 L MCH 23.2 L MCHC 31.2 RDW 19.3 H Plt Count 164 MPV TNP Immature Gran % (Auto) 0.8 H Neut % (Auto) 81.0 H Lymph % (Auto) 8.6 L Ness % (Auto) 8.4 Eos % (Auto) 1.1 Baso % (Auto) 0.1 Lymph # (Auto) 1.2 Ness # (Auto) 1.2 Eos # (Auto) 0.2 Baso # (Auto) 0.0 Abs Immat Gran (auto) 0.11 H Absolute Neuts (auto) 11.1 H Absolute Nucleated RBC 0.030 H Nucleated RBC % (auto) 0.2 VBG pH 7.43 VBG pCO2 47 VBG pO2 64 VBG HCO3 31 H VBG O2 Saturation 88.0 VBG Base Excess 6.3 Sodium 134 L Potassium 5.3 H D Chloride 94 L Carbon Dioxide 27 Anion Gap 18 BUN 49 H Creatinine 5.96 H* Estim Creat Clear Calc 10.8 Estimated GFR 9 POC Glucose 95 Random Glucose 90 Lactic Acid Calcium 8.8 Phosphorus Magnesium Total Bilirubin Direct Bilirubin AST ALT Alkaline Phosphatase Ammonia C-Reactive Protein Total Protein Albumin Random Vancomycin 08/25/24 08/25/24 08/25/24 10:25 13:44 16:31 WBC RBC Hgb Hct MCV MCH MCHC RDW Plt Count MPV Immature Gran % (Auto) Neut % (Auto) Lymph % (Auto) Ness % (Auto) Eos % (Auto) Baso % (Auto) Lymph # (Auto) Ness # (Auto) Eos # (Auto) Baso # (Auto) Abs Immat Gran (auto) Absolute Neuts (auto) Absolute Nucleated RBC Nucleated RBC % (auto) VBG pH VBG pCO2 VBG pO2 VBG HCO3 VBG O2 Saturation VBG Base Excess Sodium Potassium Chloride Carbon Dioxide Anion Gap BUN Creatinine Estim Creat Clear Calc Estimated GFR POC Glucose 180 H 168 H 165 H Random Glucose Lactic Acid Calcium Phosphorus Magnesium Total Bilirubin Direct Bilirubin AST ALT Alkaline Phosphatase Ammonia C-Reactive Protein Total Protein Albumin Random Vancomycin 08/25/24 08/26/24 08/26/24 19:56 01:18 04:41 WBC RBC Hgb Hct MCV MCH MCHC RDW Plt Count MPV Immature Gran % (Auto) Neut % (Auto) Lymph % (Auto) Ness % (Auto) Eos % (Auto) Baso % (Auto) Lymph # (Auto) Ness # (Auto) Eos # (Auto) Baso # (Auto) Abs Immat Gran (auto) Absolute Neuts (auto) Absolute Nucleated RBC Nucleated RBC % (auto) VBG pH VBG pCO2 VBG pO2 VBG HCO3 VBG O2 Saturation VBG Base Excess Sodium Potassium Chloride Carbon Dioxide Anion Gap BUN Creatinine Estim Creat Clear Calc Estimated GFR POC Glucose 134 H 114 88 Random Glucose Lactic Acid Calcium Phosphorus Magnesium Total Bilirubin Direct Bilirubin AST ALT Alkaline Phosphatase Ammonia C-Reactive Protein Total Protein Albumin Random Vancomycin 08/26/24 08/26/24 08/26/24 07:00 08:49 10:06 WBC 16.4 H RBC 4.62 Hgb 10.7 L Hct 33.6 L MCV 72.7 L MCH 23.2 L MCHC 31.8 RDW 18.8 H Plt Count 178 MPV Not Reportable Immature Gran % (Auto) 0.7 H Neut % (Auto) 82.8 H Lymph % (Auto) 6.7 L Ness % (Auto) 8.6 Eos % (Auto) 1.0 Baso % (Auto) 0.2 Lymph # (Auto) 1.1 L Ness # (Auto) 1.4 H Eos # (Auto) 0.2 Baso # (Auto) 0.0 Abs Immat Gran (auto) 0.12 H Absolute Neuts (auto) 13.5 H Absolute Nucleated RBC 0.000 Nucleated RBC % (auto) 0.0 VBG pH VBG pCO2 VBG pO2 VBG HCO3 VBG O2 Saturation VBG Base Excess Sodium 132 L Potassium 6.1 H* Chloride 91 L Carbon Dioxide 24 Anion Gap 23 H BUN 64 H Creatinine 7.92 H* Estim Creat Clear Calc 8.1 Estimated GFR 7 POC Glucose 80 97 Random Glucose 66 Lactic Acid Calcium 8.9 Phosphorus 8.9 H Magnesium Total Bilirubin Direct Bilirubin AST ALT Alkaline Phosphatase Ammonia C-Reactive Protein Total Protein Albumin Random Vancomycin 08/26/24 08/26/24 08/26/24 15:25 16:57 19:16 WBC RBC Hgb Hct MCV MCH MCHC RDW Plt Count MPV Immature Gran % (Auto) Neut % (Auto) Lymph % (Auto) Ness % (Auto) Eos % (Auto) Baso % (Auto) Lymph # (Auto) Ness # (Auto) Eos # (Auto) Baso # (Auto) Abs Immat Gran (auto) Absolute Neuts (auto) Absolute Nucleated RBC Nucleated RBC % (auto) VBG pH VBG pCO2 VBG pO2 VBG HCO3 VBG O2 Saturation VBG Base Excess Sodium Potassium Chloride Carbon Dioxide Anion Gap BUN Creatinine Estim Creat Clear Calc Estimated GFR POC Glucose 127 H 131 H Random Glucose Lactic Acid Calcium Phosphorus Magnesium Total Bilirubin Direct Bilirubin AST ALT Alkaline Phosphatase Ammonia C-Reactive Protein Total Protein Albumin Random Vancomycin 12.3 L 08/26/24 08/26/24 08/27/24 20:07 22:56 01:20 WBC RBC Hgb Hct MCV MCH MCHC RDW Plt Count MPV Immature Gran % (Auto) Neut % (Auto) Lymph % (Auto) Ness % (Auto) Eos % (Auto) Baso % (Auto) Lymph # (Auto) Ness # (Auto) Eos # (Auto) Baso # (Auto) Abs Immat Gran (auto) Absolute Neuts (auto) Absolute Nucleated RBC Nucleated RBC % (auto) VBG pH 7.41 VBG pCO2 51 VBG pO2 73 VBG HCO3 33 H VBG O2 Saturation 92.0 VBG Base Excess 7.1 Sodium Potassium Chloride Carbon Dioxide Anion Gap BUN Creatinine Estim Creat Clear Calc Estimated GFR POC Glucose 121 H 95 Random Glucose Lactic Acid Calcium Phosphorus Magnesium Total Bilirubin Direct Bilirubin AST ALT Alkaline Phosphatase Ammonia C-Reactive Protein Total Protein Albumin Random Vancomycin 08/27/24 08/27/24 08/27/24 03:11 06:07 07:02 WBC 14.6 H RBC 4.55 L Hgb 10.4 L Hct 33.1 L MCV 72.7 L MCH 22.9 L MCHC 31.4 RDW 18.8 H Plt Count 189 MPV Not Reportable Immature Gran % (Auto) Neut % (Auto) Lymph % (Auto) Ness % (Auto) Eos % (Auto) Baso % (Auto) Lymph # (Auto) Ness # (Auto) Eos # (Auto) Baso # (Auto) Abs Immat Gran (auto) Absolute Neuts (auto) Absolute Nucleated RBC 0.000 Nucleated RBC % (auto) 0.0 VBG pH VBG pCO2 VBG pO2 VBG HCO3 VBG O2 Saturation VBG Base Excess Sodium 136 Potassium 4.5 D Chloride 96 Carbon Dioxide 25 Anion Gap 20 BUN 37 H Creatinine 5.19 H* Estim Creat Clear Calc 12.4 Estimated GFR 11 POC Glucose 90 75 Random Glucose 76 Lactic Acid Calcium 9.2 Phosphorus Magnesium Total Bilirubin Direct Bilirubin AST ALT Alkaline Phosphatase Ammonia C-Reactive Protein Total Protein Albumin Random Vancomycin 08/27/24 08/27/24 08:36 12:31 WBC RBC Hgb Hct MCV MCH MCHC RDW Plt Count MPV Immature Gran % (Auto) Neut % (Auto) Lymph % (Auto) Ness % (Auto) Eos % (Auto) Baso % (Auto) Lymph # (Auto) Ness # (Auto) Eos # (Auto) Baso # (Auto) Abs Immat Gran (auto) Absolute Neuts (auto) Absolute Nucleated RBC Nucleated RBC % (auto) VBG pH VBG pCO2 VBG pO2 VBG HCO3 VBG O2 Saturation VBG Base Excess Sodium Potassium Chloride Carbon Dioxide Anion Gap BUN Creatinine Estim Creat Clear Calc Estimated GFR POC Glucose 166 H 101 Random Glucose Lactic Acid Calcium Phosphorus Magnesium Total Bilirubin Direct Bilirubin AST ALT Alkaline Phosphatase Ammonia C-Reactive Protein Total Protein Albumin Random Vancomycin Airway Mallampati Class: Patient Non-Cooperative TM Dist: >3cm Heart: S1S2 Lungs: Diminished bilaterally Assessment and Plan Assessment Anesthesia Assessment: Anesthesia Plan Discussed and Chart Reviewed Final Anesthetic Review Family History of Problems with Anesthesia: No History of Problems with Anesthesia: No NPO: Yes ASA Class: IV Final Preanesthetic Review: No Changes in Pt Med Stat, Meds/Allgs Chart Reviewed, Consent Obtained/Reviewed (with son and HCP, Nestor Marie) and Anes Risks/Benef Reviewed Patient Risk: High Procedure Risk: Low Anesthetic Plan Anesthetic Plan: MAC:, Regional Block (right brachial plexus block) and Agree w/ Assess. and Plan Disposition: Standard PACU
--- NOTE | 2024-08-27 14:50 | P.BOP_ITS ---
Brief Operative Note Date of Service: 08/27/24 Pre-op diagnosis: Necrotic index finger and long finger right hand Post-op diagnosis: same Procedure: Right middle finger amputation at MCP Right index finger amputation at PIP Surgeon: Baldemar Witt MD Anesthesia: MAC and regional Was an Scrub Woman used for this Procedure?: Yes Scrub Woman: Jazzmine Santana Estimated blood loss (mL): 10 IV fluids (mL): 250 Pathology: other Condition: stable Disposition: PACU
--- NOTE | 2024-08-27 15:28 | P.PNIM_ITS ---
Subjective Subjective Date of Service: 08/27/24 Interval History: f/u dry gangrene Mentation better today Glucose levels low normal, currently NPO due to pending surgery today Denies chest pain, shortness of breath, nausea, vomiting Still having pain in right digits Review of Systems Review of Systems: Yes all other systems are reviewed and are negative Physical Exam 2 Vital Signs: Vital Signs: Last Vital Signs Temp 99.7 F 08/27/24 15:09 Pulse 56 08/27/24 15:09 Resp 14 08/27/24 15:09 BP 159/43 H 08/27/24 15:09 Pulse Ox 100 08/27/24 15:09 O2 Del Method Nasal Cannula 08/27/24 15:09 O2 Flow Rate 2 08/27/24 15:09 BMI result Body Mass Index 27.3 General: Alert, and oriented x3, mentation better today, no acute distress Resp: Diminished throughout, no wheezing CVS: S1, S2, RRR GI: +BS, NT, no distention Skin: Warm, dry Neuro: Cranial nerves II-XII grossly intact bilaterally. Motor grossly intact bilaterally Extremities: No LE edema. dry gangrene R 2nd and 3rd digits. Psych: Appropriate affect Objective Data Active Medications Acetaminophen (Acetaminophen 325 Mg Tablet) 650 mg PO Q6H PRN PRN Reason: Pain, Mild 1-3,fever,headache Last Admin: 08/25/24 12:20 Dose: 650 mg Documented By: SHAHZAD Albuterol Sulfate (Albuterol Sulfate 90 Mcg 8 Gm Inhaler) 2 puff INHALE Q4H PRN PRN Reason: Wheezing Albuterol/Ipratropium (Albuterol/Iprat 2.5/0.5mg 3 Ml Ampul.Neb) 3 ml INHALE QID PRN PRN Reason: Shortness of Breath Allopurinol (Allopurinol 100 Mg Tablet) 100 mg PO MOWEFR@1600 [facility] Last Admin: 08/26/24 17:51 Dose: 100 mg Documented By: TRUDY Amlodipine Besylate (Amlodipine Besylate 10 Mg Tablet) 10 mg PO DAILY [facility]; Protocol Last Admin: 08/27/24 08:02 Dose: 10 mg Documented By: TRUDY Aspirin (Aspirin Enteric Coated 81 Mg Tablet.) 81 mg PO MOWEFR@1600 [facility] [place] Last Admin: 08/26/24 17:49 Dose: 81 mg Documented By: TRUDY Aspirin (Aspirin Enteric Coated 81 Mg Tablet.) 81 mg PO SUTUTHSA@0900 [facility] [place] Last Admin: 08/27/24 07:36 Dose: Not Given Documented By: TRUDY Non-Admin Reason: Hold per MD, having surgery Atorvastatin Calcium (Atorvastatin Calcium 40 Mg Tablet) 40 mg PO MOWEFR@1600 [facility] [place] Last Admin: 08/26/24 17:51 Dose: 40 mg Documented By: TRUDY Atorvastatin Calcium (Atorvastatin Calcium 40 Mg Tablet) 40 mg PO SUTUTHSA@0900 [facility] [place] Last Admin: 08/27/24 08:04 Dose: 40 mg Documented By: TRUDY Calcium Carbonate (Calcium Carbonate 750 Mg Tab.Chew) 750 mg PO Q4H PRN PRN Reason: Heartburn Carvedilol (Carvedilol 12.5 Mg Tablet) 12.5 mg PO BID [facility]; Protocol Dextrose (Dextrose 50 % 25 Gm/50 Ml Syringe) 25 gm IVPUSH Q15M PRN; Protocol PRN Reason: per Hypoglycemia Standing Ord. Last Admin: 08/27/24 07:59 Dose: 25 gm Documented By: TRUDY Docusate Sodium (Docusate Sodium 100 Mg Capsule) 100 mg PO DAILY [facility] [place] Last Admin: 08/27/24 08:52 Dose: Not Given Documented By: TRUDY Non-Admin Reason: NPO Doxazosin Mesylate (Doxazosin Mesylate 2 Mg Tablet) 4 mg PO BEDTIME [facility]; Protocol Last Admin: 08/26/24 21:30 Dose: 4 mg Documented By: ELISEO Fentanyl (Fentanyl Citrate/Pf 100 Mcg/2 Ml Vial) 25 mcg IVPUSH Q5M PRN PRN Reason: Pain, Moderate to Severe (Pain Scale 4-10) Stop: 08/27/24 19:29 Fluticasone/Umeclidinium/Vilanterol (Fluticasone/Umeclidinium/Vilanterol 100/62.5/25 Blst.W.Dev) 1 puff INHALE RDAILY [facility] [place] Last Admin: 08/27/24 08:18 Dose: Not Given Documented By: EVENS Non-Admin Reason: Patient Condition Contraindication Furosemide (Furosemide 40 Mg Tablet) 80 mg PO MOWEFR@1600 [facility] [place]; Protocol Last Admin: 08/26/24 17:50 Dose: 80 mg Documented By: TRUDY Furosemide (Furosemide 40 Mg Tablet) 80 mg PO SUTUTHSA@0900 [facility]; Protocol Last Admin: 08/27/24 08:03 Dose: 80 mg Documented By: TRUDY Glucose (Glucose Gel 15 Gm Gel..Gram.) 15 gm PO Q15M PRN PRN Reason: per Hypoglycemia Standing Ord. Last Admin: 08/25/24 04:50 Dose: 15 gm Documented By: HENRIETTA Heparin Sodium (Porcine) (Heparin Sodium,Porcine 5,000 Unit/Ml Vial) 5,000 unit SUBCUT Q12H [facility] On Hold: 08/27/24 00:00 Last Admin: 08/26/24 21:26 Dose: 5,000 unit Documented By: ELISEO Vancomycin HCl 500 mg/ Sodium (Chloride) 110 mls @ 110 mls/hr IV ONCE ONE Stop: 08/23/24 20:59 Levetiracetam (Keppra) 1,000 mg in 100 mls @ 400 mls/hr IV Q12H [facility] Last Infusion: 08/27/24 08:45 Dose: Infused Documented By: TRUDY Dextrose/Sodium Chloride (D5ns) 1,000 mls @ 50 mls/hr IVCONT .Q20H [facility] Stop: 08/28/24 03:59 Last Admin: 08/27/24 08:18 Dose: 50 mls/hr Documented By: TRUDY Insulin Glargine (Insulin Glargine,Hum.Rec.Anlog 100 Unit/Ml 10 Ml Vial) 20 unit SUBCUT BEDTIME [facility] On Hold: 08/24/24 18:51 Last Admin: 08/23/24 19:52 Dose: 20 unit Documented By: HENRIETTA Insulin Human Lispro (Insulin Lispro 100 Unit/Ml 3 Ml Vial) 0 unit SUBCUT QIDACHS [facility]; Protocol Last Admin: 08/27/24 12:31 Dose: Not Given Documented By: TRUDY Non-Admin Reason: Off Unit: Surgery Losartan Potassium (Losartan Potassium 25 Mg Tablet) 25 mg PO MOWEFR@1600 [facility]; Protocol Last Admin: 08/26/24 17:49 Dose: 25 mg Documented By: TRUDY Losartan Potassium (Losartan Potassium 25 Mg Tablet) 25 mg PO SUTUTHSA@0900 [facility]; Protocol Last Admin: 08/27/24 08:53 Dose: 25 mg Documented By: TRUDY Magnesium Hydroxide (Milk Of Magnesia 30 Ml Oral.Susp) 30 ml PO DAILY PRN PRN Reason: Constipation Melatonin (Melatonin 3 Mg Tablet) 6 mg PO BEDTIME PRN PRN Reason: Insomnia Naloxone HCl (Naloxone Hcl 0.4 Mg/Ml Vial) 0.04 mg IVPUSH Q5M PRN PRN Reason: Excessive sedation or RR < 8 Omeprazole (Omeprazole 20 Mg Capsule.Dr) 20 mg PO DAILY@0630 [facility] Last Admin: 08/27/24 07:32 Dose: Not Given Documented By: TRUDY Non-Admin Reason: NPO Ondansetron HCl (Ondansetron Hcl 4 Mg/2 Ml Vial) 4 mg IVPUSH Q8H PRN PRN Reason: Nausea and Vomiting Oxycodone HCl (Oxycodone Hcl Immed Release 5 Mg Tablet) 5 mg PO Q6H PRN On Hold: 08/24/24 18:53 PRN Reason: Pain, Severe (Pain Scale 7-10) Pharmacy Consult (Consult Rx Vancomycin Dosing) 1 each MISCELLANE DAILY PRN PRN Reason: Consult order Pregabalin (Pregabalin 75 Mg Capsule) 75 mg PO DAILY [facility] [place] Last Admin: 08/27/24 08:05 Dose: Not Given Documented By: TRUDY Non-Admin Reason: NPO Sevelamer Carbonate (Sevelamer Carbonate Tablet 800 Mg Tablet) 800 mg PO TIDWM [facility] [place] Last Admin: 08/27/24 12:31 Dose: Not Given Documented By: TRUDY Non-Admin Reason: Off Unit: Surgery Sodium Chloride (0.9 % Sodium Chloride Flush 3 Ml Syringe) 3 ml IVFLUSH QSHIFT [facility] Last Admin: 08/27/24 08:04 Dose: 3 ml Documented By: TRUDY Labs 08/27/24 06:07 08/27/24 06:07 Labs: Laboratory Results - last 24 hr 08/26/24 08/26/24 08/26/24 15:25 16:57 19:16 MCV MCH MCHC RDW Plt Count MPV Absolute Nucleated RBC Nucleated RBC % (auto) VBG pH VBG pCO2 VBG pO2 VBG HCO3 VBG O2 Saturation VBG Base Excess Anion Gap Estim Creat Clear Calc Estimated GFR POC Glucose 127 H 131 H Random Glucose Calcium Random Vancomycin 12.3 L 08/26/24 08/26/24 08/27/24 20:07 22:56 01:20 MCV MCH MCHC RDW Plt Count MPV Absolute Nucleated RBC Nucleated RBC % (auto) VBG pH 7.41 VBG pCO2 51 VBG pO2 73 VBG HCO3 33 H VBG O2 Saturation 92.0 VBG Base Excess 7.1 Anion Gap Estim Creat Clear Calc Estimated GFR POC Glucose 121 H 95 Random Glucose Calcium Random Vancomycin 08/27/24 08/27/24 08/27/24 03:11 06:07 07:02 MCV 72.7 L MCH 22.9 L MCHC 31.4 RDW 18.8 H Plt Count 189 MPV Not Reportable Absolute Nucleated RBC 0.000 Nucleated RBC % (auto) 0.0 VBG pH VBG pCO2 VBG pO2 VBG HCO3 VBG O2 Saturation VBG Base Excess Anion Gap 20 Estim Creat Clear Calc 12.4 Estimated GFR 11 POC Glucose 90 75 Random Glucose 76 Calcium 9.2 Random Vancomycin 08/27/24 08/27/24 08:36 12:31 MCV MCH MCHC RDW Plt Count MPV Absolute Nucleated RBC Nucleated RBC % (auto) VBG pH VBG pCO2 VBG pO2 VBG HCO3 VBG O2 Saturation VBG Base Excess Anion Gap Estim Creat Clear Calc Estimated GFR POC Glucose 166 H 101 Random Glucose Calcium Random Vancomycin Assessment and Plan (1) PVD (peripheral vascular disease): Status: Acute (2) ESRD needing dialysis: Status: Acute (3) Osteomyelitis: Status: Acute (4) Necrosis of finger: Status: Acute (5) Encephalopathy: Status: Acute Plan 69M PMH significant for?ESRD on HD M/W/F, insulin-dependent type 2 diabetes, peripheral vascular disease, s/p right BKA 04/[address] Cannon, seizure disorder, HFrEF, HTN, HLD, chronically on 2L home O2, GERD, and ROBERT on CPAP who presented to the ED with?worsening pain in his right hand with 3rd and 4th fingers dry gangrene. Acute encephalopathy, improving Possibly due to hypoglycemia Head CT and labs otherwise without explanation for encephalopathy Monitor mentation Right hand ischemic changes, 3rd and 4th fingers - not septic, dry gangrene with necrosis IV Vancomycin Orthopedic amputation today vancomycin trough Uncontrolled HTN Continue losartan, Amlodipine Doxazosin Chronic hypoxic respiratory failure on 2 L of home oxygen/obstructive sleep apnea on CPAP No acute hypoxia. ESRD on HD M// Continue Velphoro, Lasix nephro- entries Levemir 800 mg t.i.d. with meals, fluid restriction 1.5 L, low potassium, phosphorus and sodium diet. Increase the carvedilol to 12.5 mg b.i.d. hyperkalemia improved Insulin-dependent type 2 diabetes with hypoglycemia continue Sliding-scale insulin, Lantus 20 units at bedtime Diabetic diet Seizure disorder Continue Keppra HLD/PAD aspirin Peripheral neuropathy Continue pregabalin DVT Prophylaxis: hep sq reason for continued hospitalization: Dry gangrene scheduled for amputation today Quality Stroke Does the patient have a stroke diagnosis?: No VTE Prior VTE?: No VTE Risk Level:: Medical - moderate - high VTE Device Contraindication: Treatment Not Indicated VTE Drug Contraindication: N/A - Med Ordered
[2024-08-27 16:18] LABS: Glucose, Whole Blood 118 mg/dL (60-115)
[2024-08-27 20:50] LABS: Glucose, Whole Blood 224 mg/dL (60-115)
[2024-08-27 21:01] LABS: Glucose, Whole Blood 222 mg/dL (60-115)
[2024-08-28] MEDS: 0.9 % Sodium Chloride Flush 3 ML SYRINGE IVFLUSH ×4 (00:17→20:05)
[2024-08-28 01:24] LABS: Glucose, Whole Blood 278 mg/dL (60-115)
[2024-08-28 01:42] LABS: Glucose, Whole Blood 267 mg/dL (60-115)
[2024-08-28 03:57] VITALS: BP 158/70; PULSE 60; RESP 16; TEMP 36.2; O2SAT 93
[2024-08-28 04:33] LABS: Glucose, Whole Blood 209 mg/dL (60-115)
[2024-08-28] MEDS: oxyCODONE HCl Immed Release 5 MG TABLET PO (05:14)
[2024-08-28 07:25] LABS: Hematocrit 33.8 % (42.0-52.0); Hemoglobin 10.5 g/dl (14.0-18.0); Mean Corpuscular HGB Conc 31.1 g/dl (31.0-36.0); Mean Corpuscular Hemoglobin 22.9 pg (27.0-33.0); Mean Corpuscular Volume 73.6 fL (80.0-98.0); NRBC Abs Auto 0.000 X10*3/uL (0.0-0.012); NRBC Pct Auto 0.0 /100WBC (0.0-0.2); Platelet Count 218 X10*3/uL (160-400); Red Blood Count 4.59 X10*6/uL (4.60-5.80); White Blood Count 15.0 X10*3/uL (4.8-10.8)
[2024-08-28 07:26] VITALS: BP 146/64; PULSE 56; RESP 17; TEMP 36.6; O2SAT 92
[2024-08-28 07:32] LABS: Glucose, Whole Blood 230 mg/dL (60-115)
[2024-08-28 07:41] LABS: Anion Gap 22 (12-20); Blood Urea Nitrogen 56 mg/dL (9-16); Calcium 8.9 mg/dL (8.4-10.2); Carbon Dioxide 23 mmol/L (22-29); Chloride 97 mmol/L (96-108); Creatinine Clr Calc Pharmacy 9.1; Estimated Glomerular Filt Rate 8; Potassium 5.0 mmol/L (3.3-5.1); Sodium 137 mmol/L (135-145)
--- NOTE | 2024-08-28 08:45 | P.PNNP_ITS ---
Subjective Subjective Date of Service: 08/28/24 Interval history: following for management of ESRD on HD while here for treatment of dry gangrene right hand digits Patient states he is feeling good, states he is tired. Sleeping but easily awakens to voice. Physical Exam 2 Vital Signs: Vital Signs: Last Vital Signs Temp 98.9 F 08/28/24 19:04 Pulse 64 08/28/24 19:04 Resp 14 08/28/24 19:04 BP 120/70 08/28/24 19:04 Pulse Ox 87 L 08/28/24 19:04 O2 Del Method Room Air 08/28/24 19:04 O2 Flow Rate 2 08/28/24 11:01 BMI result Body Mass Index 27.3 Const: General: lethargic Orientation/consciousness: lethargic Resp: Effort & Inspection: normal respiratory effort and able to speak in complete sentences Auscultation: clear to auscultation bilaterally Cardio: Rate: regular rate Rhythm: regular rhythm Heart sounds: S1 normal heart sound present and S2 normal heart sound present GI: Palpation (GI): Soft to palpation and nontender Skin: Wounds: wounds noted (right necrotic 2nd and 3rd digits ) Extrem: General: No edema and No pedal edema Objective Data Labs 08/28/24 07:05 08/28/24 07:05 Labs: Laboratory Results - last 24 hr 08/27/24 08/27/24 08/28/24 19:41 20:57 01:19 WBC RBC Hgb Hct MCV MCH MCHC RDW Plt Count MPV Absolute Nucleated RBC Nucleated RBC % (auto) Sodium Potassium Chloride Carbon Dioxide Anion Gap BUN Creatinine Estim Creat Clear Calc Estimated GFR POC Glucose 224 H 222 H 278 H Random Glucose Calcium Phosphorus Random Vancomycin 08/28/24 08/28/24 08/28/24 01:39 04:28 07:05 WBC 15.0 H RBC 4.59 L Hgb 10.5 L Hct 33.8 L MCV 73.6 L MCH 22.9 L MCHC 31.1 RDW 18.8 H Plt Count 218 MPV Not Reportable Absolute Nucleated RBC 0.000 Nucleated RBC % (auto) 0.0 Sodium 137 Potassium 5.0 Chloride 97 Carbon Dioxide 23 Anion Gap 22 H BUN 56 H Creatinine 7.02 H* Estim Creat Clear Calc 9.1 Estimated GFR 8 POC Glucose 267 H 209 H Random Glucose 243 H Calcium 8.9 Phosphorus 10.4 H Random Vancomycin 08/28/24 08/28/24 08/28/24 07:29 11:23 16:15 WBC RBC Hgb Hct MCV MCH MCHC RDW Plt Count MPV Absolute Nucleated RBC Nucleated RBC % (auto) Sodium Potassium Chloride Carbon Dioxide Anion Gap BUN Creatinine Estim Creat Clear Calc Estimated GFR POC Glucose 230 H 224 H 170 H Random Glucose Calcium Phosphorus Random Vancomycin 08/28/24 08/28/24 18:16 20:08 WBC RBC Hgb Hct MCV MCH MCHC RDW Plt Count MPV Absolute Nucleated RBC Nucleated RBC % (auto) Sodium Potassium Chloride Carbon Dioxide Anion Gap BUN Creatinine Estim Creat Clear Calc Estimated GFR POC Glucose 268 H Random Glucose Calcium Phosphorus Random Vancomycin 12.7 L Microbiology Microbiology Results: Microbiology 08/22/24 14:52 Blood - Venous Blood Culture - Final No growth after 5 days. 08/22/24 14:20 Blood - Venous Blood Culture - Final No growth after 5 days. Procedures Date of Service Date of Service: 08/28/24 Assessment & Plan Assessment and plan (1) ESRD needing dialysis: Status: Acute Plan ESRD on HD MWF access: Right permcath appears slightly euvolemic H&H 10.5 & 33- will administer 10,000 units procrit to maintain adequate hemoglobin phos is 10.4, ensure sevelamer 800mg TID with meals. Calcium 8.9. low potassium, phosphorous, and sodium diet fluid restriction 1.5L continue to monitor electrolytes renal function studies daily blood pressures acceptable will continue to follow Discussed with Dr Rao Time Spent With Patient Time: Total time managing care of this patient today ____ minutes. Progress Note: Quality Stroke Does the patient have a stroke diagnosis?: No
--- NOTE | 2024-08-28 09:09 | HO.POSTANES ---
Post Anesthesia Evaluation Post Anesthesia Evaluation Date of Service: 08/28/24 Vital Signs: Vital Signs Temp Pulse Resp BP Pulse Ox O2 Del Method O2 Flow Rate 08/28/24 07:26 97.8 F 56 17 146/64 H 92 Room Air 08/28/24 03:57 97.1 F 60 16 158/70 H 93 Nasal Cannula 2 08/27/24 23:59 62 160/74 H 08/27/24 23:59 160/74 H 08/27/24 23:17 97.9 F 66 18 154/70 H 96 CPAP Anesthesia: Monitored Mental Status: Awake Pain Control: Satisfactory Nausea/Vomiting: None Hydration: Adequate Anesthesia-Related Issues: No Anes. Related Issues
[2024-08-28] MEDS: levETIRAcetam in NaCl (iso-os) 1,000 MG/100 ML PIGGYBACK 400 MG IV ×2 (09:24→21:01)
--- NOTE | 2024-08-28 10:05 | PM.PNORT ---
Subjective Subjective Date of Service: 08/28/24 Interval history: Postop day 1 status post right middle and index finger amputations Resting comfortably in bed this morning Pain appears well managed Interview limited, as patient does repeatedly fall asleep over course of evaluation No acute complaints or concerns at this time Physical Exam Vital Signs: Vital Signs: Last Vital Signs Temp 97.8 F 08/28/24 07:26 Pulse 56 08/28/24 07:26 Resp 17 08/28/24 07:26 BP 146/64 H 08/28/24 07:26 Pulse Ox 92 08/28/24 07:26 O2 Del Method Room Air 08/28/24 07:26 O2 Flow Rate 2 08/28/24 03:57 BMI result Body Mass Index 27.3 Extrem: Other: Patient is alert, oriented, and in no acute distress. Pain: No active pain response noted with dressing change Patient demonstrates range of motion of remaining fingers ROM: Patient is able to flex and extend ring, small fingers of the right hand over the course of interview Skin: Well-approximated incision noted at PIP level of right index finger Open wound noted at level of MCP joint of right middle finger There does appear to be blood from the incision on the index finger, no bleeding or evidence of discharge from wound on middle finger Skin immediately surrounding wound at base of where middle finger was appears dusky, however skin just proximal to wound does appear to be perfused General: Wound on middle finger is noted to be malodorous Psych: Appears grossly normal Affect normal Attitude cooperative Procedures Date of Service Date of Service: 08/28/24 Progress Note: A&P Assessment and plan (1) 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: Status: Acute (2) Status post amputation of finger of right hand: Status: Acute Plan 1. Status post right index and middle finger amputations DOS 08/27/2024 Patient is discussed with Dr. Witt, and a collaborative treatment plan was formed: At this time, dressing is changed without issue or complication Daily dressing changes Patient will likely require further operative treatment this week to obtain skin coverage over wound from middle finger amputation Continue antibiotics Packing pulled today Continue with all other recommendations per Medicine and other specialists consulting Time Spent With Patient Time: Total time managing care of this patient today ____ minutes. Quality Stroke Does the patient have a stroke diagnosis?: No VTE Prior VTE?: No VTE Risk Level:: Medical - moderate - high VTE Device Contraindication: Treatment Not Indicated VTE Drug Contraindication: N/A - Med Ordered
[2024-08-28 11:01] VITALS: BP 113/56; PULSE 59; RESP 18; TEMP 36.6; O2SAT 95
[2024-08-28 11:30] LABS: Glucose, Whole Blood 224 mg/dL (60-115)
--- NOTE | 2024-08-28 15:07 | MHC.CM.PN ---
EMR reviewed and per MD rounds, pt is not medically cleared for discharge due to management of post-op care, pt POD1 s/p right middle and index finger amputations.
--- NOTE | 2024-08-28 15:19 | P.PNIM_ITS ---
Subjective Subjective Date of Service: 08/28/24 Interval History: Follow-up dry gangrene Mentation improved however patient is drowsy. Once awake mentation is normal. Denies chest pain, shortness breath, nausea or vomiting. No acute concerns at this time Pain well-controlled currently. S/p right middle finger and index finger amputations yesterday Blood sugar improving Review of Systems Review of Systems: Yes all other systems are reviewed and are negative Physical Exam 2 Vital Signs: Vital Signs: Last Vital Signs Temp 97.9 F 08/28/24 11:01 Pulse 59 08/28/24 11:01 Resp 18 08/28/24 11:01 BP 113/56 L 08/28/24 11:01 Pulse Ox 95 08/28/24 11:01 O2 Del Method Nasal Cannula 08/28/24 11:01 O2 Flow Rate 2 08/28/24 11:01 BMI result Body Mass Index 27.3 General: AOx3, no acute distress, drowsy. Seen with translator interpreter Resp: CTA bilaterally CVS: S1, S2, RRR GI: +BS, NT, no distention Skin: Warm, dry Neuro: Cranial nerves II-XII grossly intact bilaterally. Motor grossly intact bilaterally Extremities: No LE edema s/p R BKA. right hand wrapped. Psych: Appropriate affect Objective Data Active Medications Acetaminophen (Acetaminophen 325 Mg Tablet) 650 mg PO Q6H PRN PRN Reason: Pain, Mild 1-3,fever,headache Last Admin: 08/25/24 12:20 Dose: 650 mg Documented By: SHAHZAD Albuterol Sulfate (Albuterol Sulfate 90 Mcg 8 Gm Inhaler) 2 puff INHALE Q4H PRN PRN Reason: Wheezing Albuterol/Ipratropium (Albuterol/Iprat 2.5/0.5mg 3 Ml Ampul.Neb) 3 ml INHALE QID PRN PRN Reason: Shortness of Breath Allopurinol (Allopurinol 100 Mg Tablet) 100 mg PO MOWEFR@1600 [facility] Last Admin: 08/26/24 17:51 Dose: 100 mg Documented By: TRUDY Amlodipine Besylate (Amlodipine Besylate 10 Mg Tablet) 10 mg PO DAILY [facility]; Protocol Last Admin: 08/28/24 09:23 Dose: 10 mg Documented By: RAY Aspirin (Aspirin Enteric Coated 81 Mg Tablet.) 81 mg PO MOWEFR@1600 [facility] Last Admin: 08/26/24 17:49 Dose: 81 mg Documented By: TRUDY Aspirin (Aspirin Enteric Coated 81 Mg Tablet.) 81 mg PO SUTUTHSA@0900 [facility] Last Admin: 08/27/24 07:36 Dose: Not Given Documented By: TRUDY Non-Admin Reason: Hold per MD, having surgery Atorvastatin Calcium (Atorvastatin Calcium 40 Mg Tablet) 40 mg PO MOWEFR@1600 [facility] Last Admin: 08/26/24 17:51 Dose: 40 mg Documented By: TRUDY Atorvastatin Calcium (Atorvastatin Calcium 40 Mg Tablet) 40 mg PO SUTUTHSA@0900 [facility] Last Admin: 08/27/24 08:04 Dose: 40 mg Documented By: TRUDY Calcium Carbonate (Calcium Carbonate 750 Mg Tab.Chew) 750 mg PO Q4H PRN PRN Reason: Heartburn Carvedilol (Carvedilol 12.5 Mg Tablet) 12.5 mg PO BID [facility]; Protocol Last Admin: 08/28/24 09:23 Dose: 12.5 mg Documented By: RAY Dextrose (Dextrose 50 % 25 Gm/50 Ml Syringe) 25 gm IVPUSH Q15M PRN; Protocol PRN Reason: per Hypoglycemia Standing Ord. Last Admin: 08/27/24 07:59 Dose: 25 gm Documented By: TRUDY Docusate Sodium (Docusate Sodium 100 Mg Capsule) 100 mg PO DAILY [facility] Last Admin: 08/28/24 09:24 Dose: 100 mg Documented By: RAY Doxazosin Mesylate (Doxazosin Mesylate 2 Mg Tablet) 4 mg PO BEDTIME [facility]; Protocol Last Admin: 08/27/24 23:59 Dose: 4 mg Documented By: HENRIETTA Fluticasone/Umeclidinium/Vilanterol (Fluticasone/Umeclidinium/Vilanterol 100/62.5/25 Blst.W.Dev) 1 puff INHALE RDAILY [facility] Last Admin: 08/28/24 07:57 Dose: Not Given Documented By: BEAR Non-Admin Reason: Patient Condition Contraindication Furosemide (Furosemide 40 Mg Tablet) 80 mg PO MOWEFR@1600 [facility]; Protocol Last Admin: 08/26/24 17:50 Dose: 80 mg Documented By: TRUDY Furosemide (Furosemide 40 Mg Tablet) 80 mg PO SUTUTHSA@0900 [facility]; Protocol Last Admin: 08/27/24 08:03 Dose: 80 mg Documented By: TRUDY Glucose (Glucose Gel 15 Gm Gel..Gram.) 15 gm PO Q15M PRN PRN Reason: per Hypoglycemia Standing Ord. Last Admin: 08/25/24 04:50 Dose: 15 gm Documented By: HENRIETTA Heparin Sodium (Porcine) (Heparin Sodium,Porcine 5,000 Unit/Ml Vial) 5,000 unit SUBCUT Q12H [facility] Last Admin: 08/28/24 09:24 Dose: 5,000 unit Documented By: RAY Vancomycin HCl 500 mg/ Sodium (Chloride) 110 mls @ 110 mls/hr IV ONCE ONE Stop: 08/23/24 20:59 Levetiracetam (Keppra) 1,000 mg in 100 mls @ 400 mls/hr IV Q12H [facility] Last Infusion: 08/28/24 09:40 Dose: Infused Documented By: RAY Insulin Glargine (Insulin Glargine,Hum.Rec.Anlog 100 Unit/Ml 10 Ml Vial) 10 unit SUBCUT BEDTIME [facility] Insulin Human Lispro (Insulin Lispro 100 Unit/Ml 3 Ml Vial) 0 unit SUBCUT QIDACHS [facility]; Protocol Last Admin: 08/28/24 12:03 Dose: 4 unit Documented By: RAY Losartan Potassium (Losartan Potassium 25 Mg Tablet) 25 mg PO MOWEFR@1600 [facility]; Protocol Last Admin: 08/26/24 17:49 Dose: 25 mg Documented By: TRUDY Losartan Potassium (Losartan Potassium 25 Mg Tablet) 25 mg PO SUTUTHSA@0900 [facility]; Protocol Last Admin: 08/27/24 08:53 Dose: 25 mg Documented By: TRUDY Magnesium Hydroxide (Milk Of Magnesia 30 Ml Oral.Susp) 30 ml PO DAILY PRN PRN Reason: Constipation Melatonin (Melatonin 3 Mg Tablet) 6 mg PO BEDTIME PRN PRN Reason: Insomnia Naloxone HCl (Naloxone Hcl 0.4 Mg/Ml Vial) 0.04 mg IVPUSH Q5M PRN PRN Reason: Excessive sedation or RR < 8 Omeprazole (Omeprazole 20 Mg Capsule.Dr) 20 mg PO DAILY@0630 [facility] Last Admin: 08/28/24 05:14 Dose: 20 mg Documented By: HENRIETTA Ondansetron HCl (Ondansetron Hcl 4 Mg/2 Ml Vial) 4 mg IVPUSH Q8H PRN PRN Reason: Nausea and Vomiting Oxycodone HCl (Oxycodone Hcl Immed Release 5 Mg Tablet) 5 mg PO Q6H PRN PRN Reason: Pain, Severe (Pain Scale 7-10) Last Admin: 08/28/24 05:14 Dose: 5 mg Documented By: HENRIETTA Pharmacy Consult (Consult Rx Vancomycin Dosing) 1 each MISCELLANE DAILY PRN PRN Reason: Consult order Pregabalin (Pregabalin 75 Mg Capsule) 75 mg PO DAILY [facility] Last Admin: 08/28/24 09:23 Dose: 75 mg Documented By: RAY Sevelamer Carbonate (Sevelamer Carbonate Tablet 800 Mg Tablet) 800 mg PO TIDWM [facility] Last Admin: 08/28/24 12:06 Dose: Not Given Documented By: RAY Non-Admin Reason: pt unable to swallow pills whole Sodium Chloride (0.9 % Sodium Chloride Flush 3 Ml Syringe) 3 ml IVFLUSH QSHIFT [facility] Last Admin: 08/28/24 09:25 Dose: 3 ml Documented By: RAY Labs 08/28/24 07:05 08/28/24 07:05 Labs: Laboratory Results - last 24 hr 08/27/24 08/27/24 08/27/24 16:15 19:41 20:57 MCV MCH MCHC RDW Plt Count MPV Absolute Nucleated RBC Nucleated RBC % (auto) Anion Gap Estim Creat Clear Calc Estimated GFR POC Glucose 118 H 224 H 222 H Random Glucose Calcium Phosphorus 08/28/24 08/28/24 08/28/24 01:19 01:39 04:28 MCV MCH MCHC RDW Plt Count MPV Absolute Nucleated RBC Nucleated RBC % (auto) Anion Gap Estim Creat Clear Calc Estimated GFR POC Glucose 278 H 267 H 209 H Random Glucose Calcium Phosphorus 08/28/24 08/28/24 08/28/24 07:05 07:29 11:23 MCV 73.6 L MCH 22.9 L MCHC 31.1 RDW 18.8 H Plt Count 218 MPV Not Reportable Absolute Nucleated RBC 0.000 Nucleated RBC % (auto) 0.0 Anion Gap 22 H Estim Creat Clear Calc 9.1 Estimated GFR 8 POC Glucose 230 H 224 H Random Glucose 243 H Calcium 8.9 Phosphorus 10.4 H Microbiology Microbiology Results: Microbiology 08/22/24 14:52 Blood Culture - Final Blood - Venous No growth after 5 days. 08/22/24 14:20 Blood Culture - Final Blood - Venous No growth after 5 days. Assessment and Plan (1) 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: Status: Acute (2) Status post amputation of finger of right hand: Status: Acute (3) Dry gangrene: Status: Acute (4) Encephalopathy: Status: Acute (5) ESRD needing dialysis: Status: Acute (6) Type 2 diabetes mellitus: Status: Acute (7) PVD (peripheral vascular disease): Status: Acute Plan 69M PMH significant for?ESRD on HD M/W/F, insulin-dependent type 2 diabetes, peripheral vascular disease, s/p right BKA 04/[address] Cannon, seizure disorder, HFrEF, HTN, HLD, chronically on 2L home O2, GERD, and ROBERT on CPAP who presented to the ED with?worsening pain in his right hand with 3rd and 4th fingers dry gangrene. Acute encephalopathy, improving Possibly due to hypoglycemia, blood sugars improving Head CT and labs otherwise without explanation for encephalopathy Monitor mentation Right hand ischemic changes,s/p amputation 3rd and 4th fingers - not septic, dry gangrene with necrosis s/p amputation right 3rd and 4th fingers yesterday Followed by ortho, possible further resection in OR on Monday continue IV Vancomycin vancomycin trough Uncontrolled HTN Continue losartan, Amlodipine Doxazosin Chronic hypoxic respiratory failure on 2 L of home oxygen/obstructive sleep apnea on CPAP No acute hypoxia. ESRD on HD M/W/F Continue Velphoro, Lasix nephro- recs Levemir 800 mg t.i.d. with meals, fluid restriction 1.5 L, low potassium, phosphorus and sodium diet. Increase the carvedilol to 12.5 mg b.i.d. hyperkalemia improved follow BMP Insulin-dependent type 2 diabetes with hypoglycemia continue Sliding-scale insulin Lantus 10 units at bedtime - restarting at lower dose Seizure disorder Continue Keppra HLD/PAD aspirin Peripheral neuropathy Continue pregabalin DVT Prophylaxis: hep sq reason for continued hospitalization: Dry gangrene s/p amputation yesterday Quality Stroke Does the patient have a stroke diagnosis?: No VTE Prior VTE?: No VTE Risk Level:: Medical - moderate - high VTE Device Contraindication: Treatment Not Indicated VTE Drug Contraindication: N/A - Med Ordered
[2024-08-28 16:18] LABS: Glucose, Whole Blood 170 mg/dL (60-115)
[2024-08-28] MEDS: Aspirin Enteric Coated 81 MG TABLET.DR PO (17:57)
[2024-08-28 19:04] VITALS: BP 120/70; PULSE 64; RESP 14; TEMP 37.2; O2SAT 87
[2024-08-28 20:18] LABS: Glucose, Whole Blood 268 mg/dL (60-115)
[2024-08-28 23:27] VITALS: BP 152/70; PULSE 66; RESP 18; TEMP 37.6; O2SAT 90
[2024-08-28 23:40] LABS: Glucose, Whole Blood 181 mg/dL (60-115)
[2024-08-29] VITALS (7 sets, daily range): BP systolic 115–166; BP diastolic 67–76; PULSE 55–65; RESP 14–20; TEMP 36.1–36.9; O2SAT 92–97
[2024-08-29] MEDS: oxyCODONE HCl Immed Release 5 MG TABLET PO ×3 (01:26→22:26)
[2024-08-29 03:42] LABS: Glucose, Whole Blood 186 mg/dL (60-115)
[2024-08-29 06:49] LABS: Hematocrit 34.3 % (42.0-52.0); Hemoglobin 10.4 g/dl (14.0-18.0); Mean Corpuscular HGB Conc 30.3 g/dl (31.0-36.0); Mean Corpuscular Hemoglobin 22.4 pg (27.0-33.0); Mean Corpuscular Volume 73.9 fL (80.0-98.0); NRBC Abs Auto 0.000 X10*3/uL (0.0-0.012); NRBC Pct Auto 0.0 /100WBC (0.0-0.2); Platelet Count 241 X10*3/uL (160-400); Red Blood Count 4.64 X10*6/uL (4.60-5.80); White Blood Count 13.7 X10*3/uL (4.8-10.8)
--- NOTE | 2024-08-29 06:51 | W.PM.OPN ---
Operative Note Operative Note Date of Service: 08/29/24 Narrative: Date of Service: 08/27/24 Pre-op diagnosis: Necrotic index finger and long finger right hand Post-op diagnosis: same Procedure: Right middle finger amputation at MCP Right index finger amputation at PIP Surgeon: Baldemar Witt MD Anesthesia: MAC and regional Was an Manager Of Housekeeping used for this Procedure?: Yes Manager Of Housekeeping: Jazzmine Santana Estimated blood loss (mL): 10 IV fluids (mL): 250 Pathology: other Condition: stable Disposition: PACU Procedure in detail: Patient was brought to supine on table standard sterile fashion. A time-out was called to identify proper site, proper procedure and proper surgeon. IV antibiotics per weight were administered. Immediately evident was a necrotic index and middle finger. I began with the index finger. There was desiccation and necrosis of the phalanx distal to the PIP. A towel clip was used to stabilize the necrotic portion of the distal phalanx and a mid axial incision was taken on either side down to healthy bleeding skin just distal to the PIP. At this point subperiosteal dissection was taken down to the PIP joint and the joint was disarticulated. The extensor and flexor tendons were preserved at this level. The neurovascular bundles were dissected and were necrotic with no flow up to the level of the PIP. The nerve was dissected and buried in the volar soft tissues on both sides. There was a proximally 1 cm of volar skin remaining that allowed me to bring this dorsally for adequate skin coverage. The cartilage of the proximal phalanx was removed with a rongeur. The flexor tendon was sutured loosely to the volar soft tissues. I then irrigated copiously. I ensured that there was bleeding skin at all levels and use nylon to create a dorsally based skin coverage. I was satisfied with the stump and with the viability of the skin. I then turned my attention to the middle phalanx. Again a mid axial incision was made on either side and taken down through necrotic skin to viable tissue. Unfortunately this was at the level of the metacarpal phalangeal joint. The skin and soft tissues up to the level of the MCP were necrotic and odiferous. They viable volar skin was at the distal aspect of the palm but unfortunately the dorsal skin was less healthy and was questionably viable at the level of the MCP. I removed the skin and disarticulated the metacarpal phalangeal joint removing all distal tissue. The flexor tendon was visualized and I let this retract. Extensor tendon was also visible and not treated. The neurovascular bundles on either side did not appear viable and were removed up until there was normal-appearing tissue. The nerves were dissected, cauterized and buried into the soft tissues. I irrigated copiously and was able to close a bout 80% of the soft tissue but there was a small area over the ulnar aspect of the webspace and which there was no skin coverage. There was soft tissue covering the bone but there was an absence of skin. The bone was not exposed. I irrigated copiously and closed this with nylon suture using the remaining soft tissues. My goal was to reassess the viability of the soft tissues and perform a limited ray resection in the next several days if the tissue did not appear healthy enough to heal this wound. At this point the index finger was bleeding. There was limited blood flow around the level of the MCP resection. I covered this with Xeroform and sterile dressing. Patient was awakened from anesthesia and brought to recovery room in stable condition. There were no known complications.
[2024-08-29 07:08] LABS: Anion Gap 19 (12-20); Blood Urea Nitrogen 35 mg/dL (9-16); Calcium 8.8 mg/dL (8.4-10.2); Carbon Dioxide 24 mmol/L (22-29); Chloride 99 mmol/L (96-108); Creatinine Clr Calc Pharmacy 13.0; Estimated Glomerular Filt Rate 12; Potassium 4.3 mmol/L (3.3-5.1); Sodium 138 mmol/L (135-145)
[2024-08-29 07:27] LABS: Glucose, Whole Blood 137 mg/dL (60-115)
[2024-08-29] MEDS: Fluticasone/Umeclidinium/Vilanterol 100/62.5/25 BLST.W.DEV 1 PUFF INHALE (08:08)
[2024-08-29] MEDS: levETIRAcetam in NaCl (iso-os) 1,000 MG/100 ML PIGGYBACK 400 MG IV ×2 (09:04→20:48)
[2024-08-29] MEDS: Sevelamer Carbonate Tablet 800 MG TABLET PO ×2 (09:05→12:20)
[2024-08-29] MEDS: Aspirin Enteric Coated 81 MG TABLET.DR PO (09:05)
[2024-08-29] MEDS: 0.9 % Sodium Chloride Flush 3 ML SYRINGE IVFLUSH (09:06)
--- NOTE | 2024-08-29 09:10 | PM.PNORT ---
Subjective Subjective Date of Service: 08/29/24 Interval history: Postop day 2 status post right middle and index finger amputations Resting comfortably in bed this morning Pain appears well managed Interview limited, as patient does repeatedly fall asleep over course of evaluation No acute complaints or concerns at this time Physical Exam Vital Signs: Vital Signs: Last Vital Signs Temp 98.3 F 08/29/24 07:45 Pulse 62 08/29/24 08:09 Resp 20 08/29/24 08:09 BP 156/72 H 08/29/24 07:45 Pulse Ox 97 08/29/24 07:45 O2 Del Method Nasal Cannula 08/29/24 07:45 O2 Flow Rate 1.5 08/29/24 07:45 BMI result Body Mass Index 27.3 Extrem: Other: Patient is alert, oriented, and in no acute distress. Pain: No active pain response noted with dressing change Patient demonstrates range of motion of remaining fingers ROM: Patient is able to flex and extend ring, small fingers of the right hand over the course of interview Skin: Well-approximated incision noted at PIP level of right index finger Open wound noted at level of MCP joint of right middle finger There does appear to be blood from the incision on the index finger, no bleeding or evidence of discharge from wound on middle finger Skin immediately surrounding wound at base of where middle finger was appears dusky, however skin just proximal to wound does appear to be perfused General: Wound on middle finger is noted to be malodorous Psych: Appears grossly normal Affect normal Attitude cooperative Procedures Date of Service Date of Service: 08/29/24 Progress Note: A&P Assessment and plan (1) 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: Status: Acute (2) Status post amputation of finger of right hand: Status: Acute (3) Necrosis of finger: Status: Acute Plan 1. Status post right index and middle finger amputations DOS 08/27/2024 Patient is discussed with Dr. Witt, and a collaborative treatment plan was formed: At this time, dressing is changed without issue or complication Daily dressing changes Plan to bring the patient to the OR tomorrow for irrigation and wound closure of right middle finger amputation site NPO at midnight for OR tomorrow Continue antibiotics Packing pulled today Continue with all other recommendations per Medicine and other specialists consulting Time Spent With Patient Time: Total time managing care of this patient today ____ minutes. Quality Stroke Does the patient have a stroke diagnosis?: No VTE Prior VTE?: No VTE Risk Level:: Medical - moderate - high VTE Device Contraindication: Treatment Not Indicated VTE Drug Contraindication: N/A - Med Ordered
--- NOTE | 2024-08-29 12:00 | PC.NURSE ---
at 1200 pt states he is unable to find cell phone he came in with. Hamper was checked to make sure it did not get put in there with sheets. Room was checked and it was unable to be located at this time.
[2024-08-29 12:02] LABS: Glucose, Whole Blood 236 mg/dL (60-115)
--- NOTE | 2024-08-29 12:49 | HO.PM.IMPN ---
Subjective Subjective Date of Service: 08/29/24 Interval History: Follow-up dry gangrene Mentation improved, much more awake today Denies chest pain, shortness breath, nausea or vomiting. No acute concerns at this time Pain well-controlled currently. S/p right middle finger and index finger amputations POD2 Blood sugar improving, back on lantus reduced dose Review of Systems Review of Systems: Yes all other systems are reviewed and are negative Physical Exam Vital Signs: Vital Signs: Last Vital Signs Temp 97.0 F 08/29/24 12:00 Pulse 61 08/29/24 12:00 Resp 20 08/29/24 12:00 BP 115/76 08/29/24 12:00 Pulse Ox 95 08/29/24 12:00 O2 Del Method Nasal Cannula 08/29/24 12:00 O2 Flow Rate 2 08/29/24 12:00 BMI result Body Mass Index 27.3 General: AOx3, no acute distress, seen with software administrator Resp: CTA bilaterally CVS: S1, S2, RRR GI: +BS, NT, no distention Skin: Warm, dry. s/p R 3rd and 4th digit amputation, bandage replaced by ortho today Neuro: Cranial nerves II-XII grossly intact bilaterally. Motor grossly intact bilaterally Extremities: No lower extremity edema Psych: Appropriate affect Objective Data Active Medications Acetaminophen (Acetaminophen 325 Mg Tablet) 650 mg PO Q6H PRN PRN Reason: Pain, Mild 1-3,fever,headache Last Admin: 08/25/24 12:20 Dose: 650 mg Documented By: SHAHZAD Albuterol Sulfate (Albuterol Sulfate 90 Mcg 8 Gm Inhaler) 2 puff INHALE Q4H PRN PRN Reason: Wheezing Albuterol/Ipratropium (Albuterol/Iprat 2.5/0.5mg 3 Ml Ampul.Neb) 3 ml INHALE QID PRN PRN Reason: Shortness of Breath Allopurinol (Allopurinol 100 Mg Tablet) 100 mg PO MOWEFR@1600 [facility] Last Admin: 08/28/24 17:58 Dose: 100 mg Documented By: RAY Amlodipine Besylate (Amlodipine Besylate 10 Mg Tablet) 10 mg PO DAILY [facility]; Protocol Last Admin: 08/29/24 09:04 Dose: 10 mg Documented By: FRANCISCO Aspirin (Aspirin Enteric Coated 81 Mg Tablet.) 81 mg PO MOWEFR@1600 [facility] Last Admin: 08/28/24 17:57 Dose: 81 mg Documented By: RAY Aspirin (Aspirin Enteric Coated 81 Mg Tablet.) 81 mg PO SUTUTHSA@0900 [facility] Last Admin: 08/29/24 09:05 Dose: 81 mg Documented By: FRANCISCO Atorvastatin Calcium (Atorvastatin Calcium 40 Mg Tablet) 40 mg PO MOWEFR@1600 [facility] Last Admin: 08/28/24 17:58 Dose: 40 mg Documented By: RAY Atorvastatin Calcium (Atorvastatin Calcium 40 Mg Tablet) 40 mg PO SUTUTHSA@0900 [facility] Last Admin: 08/29/24 09:06 Dose: 40 mg Documented By: FRANCISCO Calcium Carbonate (Calcium Carbonate 750 Mg Tab.Chew) 750 mg PO Q4H PRN PRN Reason: Heartburn Carvedilol (Carvedilol 12.5 Mg Tablet) 12.5 mg PO BID [facility]; Protocol Last Admin: 08/29/24 09:05 Dose: 12.5 mg Documented By: FRANCISCO Dextrose (Dextrose 50 % 25 Gm/50 Ml Syringe) 25 gm IVPUSH Q15M PRN; Protocol PRN Reason: per Hypoglycemia Standing Ord. Last Admin: 08/27/24 07:59 Dose: 25 gm Documented By: TRUDY Docusate Sodium (Docusate Sodium 100 Mg Capsule) 100 mg PO DAILY [facility] Last Admin: 08/29/24 09:04 Dose: 100 mg Documented By: FRANCISCO Doxazosin Mesylate (Doxazosin Mesylate 2 Mg Tablet) 4 mg PO BEDTIME [facility]; Protocol Last Admin: 08/28/24 19:55 Dose: 4 mg Documented By: KEREN Fluticasone/Umeclidinium/Vilanterol (Fluticasone/Umeclidinium/Vilanterol 100/62.5/25 Blst.W.Dev) 1 puff INHALE RDAILY [facility] Last Admin: 08/29/24 08:08 Dose: 1 puff Documented By: ANNE Furosemide (Furosemide 40 Mg Tablet) 80 mg PO MOWEFR@1600 [facility]; Protocol Last Admin: 08/28/24 17:57 Dose: 80 mg Documented By: RAY Furosemide (Furosemide 40 Mg Tablet) 80 mg PO SUTUTHSA@0900 [facility]; Protocol Last Admin: 08/29/24 09:05 Dose: 80 mg Documented By: FRANCISCO Glucose (Glucose Gel 15 Gm Gel..Gram.) 15 gm PO Q15M PRN PRN Reason: per Hypoglycemia Standing Ord. Last Admin: 08/25/24 04:50 Dose: 15 gm Documented By: HENRIETTA Heparin Sodium (Porcine) (Heparin Sodium,Porcine 5,000 Unit/Ml Vial) 5,000 unit SUBCUT Q12H [facility] Last Admin: 08/29/24 09:03 Dose: 5,000 unit Documented By: FRANCISCO Vancomycin HCl 500 mg/ Sodium (Chloride) 110 mls @ 110 mls/hr IV ONCE ONE Stop: 08/23/24 20:59 Levetiracetam (Keppra) 1,000 mg in 100 mls @ 400 mls/hr IV Q12H [facility] Last Infusion: 08/29/24 09:44 Dose: Infused Documented By: FRANCISCO Insulin Glargine (Insulin Glargine,Hum.Rec.Anlog 100 Unit/Ml 10 Ml Vial) 10 unit SUBCUT BEDTIME [facility] On Hold: 08/28/24 21:00 Insulin Human Lispro (Insulin Lispro 100 Unit/Ml 3 Ml Vial) 0 unit SUBCUT QIDAS [facility]; Protocol Last Admin: 08/29/24 12:20 Dose: 4 unit Documented By: FRANCISCO Losartan Potassium (Losartan Potassium 25 Mg Tablet) 25 mg PO MOWEFR@1600 [facility]; Protocol Last Admin: 08/28/24 17:57 Dose: 25 mg Documented By: RAY Losartan Potassium (Losartan Potassium 25 Mg Tablet) 25 mg PO SUTUTHSA@0900 [facility]; Protocol Last Admin: 08/29/24 09:05 Dose: 25 mg Documented By: FRANCISCO Magnesium Hydroxide (Milk Of Magnesia 30 Ml Oral.Susp) 30 ml PO DAILY PRN PRN Reason: Constipation Melatonin (Melatonin 3 Mg Tablet) 6 mg PO BEDTIME PRN PRN Reason: Insomnia Last Admin: 08/28/24 22:00 Dose: 6 mg Documented By: KEREN Naloxone HCl (Naloxone Hcl 0.4 Mg/Ml Vial) 0.04 mg IVPUSH Q5M PRN PRN Reason: Excessive sedation or RR < 8 Omeprazole (Omeprazole 20 Mg Capsule.) 20 mg PO DAILY@0630 [facility] Last Admin: 08/29/24 06:00 Dose: 20 mg Documented By: KEREN Ondansetron HCl (Ondansetron Hcl 4 Mg/2 Ml Vial) 4 mg IVPUSH Q8H PRN PRN Reason: Nausea and Vomiting Oxycodone HCl (Oxycodone Hcl Immed Release 5 Mg Tablet) 5 mg PO Q6H PRN PRN Reason: Pain, Severe (Pain Scale 7-10) Last Admin: 08/29/24 11:42 Dose: 5 mg Documented By: FRANCISCO Pharmacy Consult (Consult Rx Vancomycin Dosing) 1 each MISCELLANE DAILY PRN PRN Reason: Consult order Pregabalin (Pregabalin 75 Mg Capsule) 75 mg PO DAILY [facility] Last Admin: 08/29/24 09:04 Dose: 75 mg Documented By: FRANCISCO Sevelamer Carbonate (Sevelamer Carbonate Tablet 800 Mg Tablet) 800 mg PO TIDWM [facility] Last Admin: 08/29/24 12:20 Dose: 800 mg Documented By: FRANCISCO Sodium Chloride (0.9 % Sodium Chloride Flush 3 Ml Syringe) 3 ml IVFLUSH QSHIFT [facility] Last Admin: 08/29/24 09:06 Dose: 3 ml Documented By: FRANCISCO Labs 08/29/24 06:17 08/29/24 06:17 Labs: Laboratory Results - last 24 hr 08/28/24 08/28/24 08/28/24 16:15 18:16 20:08 MCV MCH MCHC RDW Plt Count MPV Absolute Nucleated RBC Nucleated RBC % (auto) Anion Gap Estim Creat Clear Calc Estimated GFR POC Glucose 170 H 268 H Random Glucose Calcium Random Vancomycin 12.7 L 08/28/24 08/29/24 08/29/24 23:34 03:37 06:17 MCV 73.9 L MCH 22.4 L MCHC 30.3 L RDW 18.8 H Plt Count 241 MPV Not Reportable Absolute Nucleated RBC 0.000 Nucleated RBC % (auto) 0.0 Anion Gap 19 Estim Creat Clear Calc 13.0 Estimated GFR 12 POC Glucose 181 H 186 H Random Glucose 152 H Calcium 8.8 Random Vancomycin 08/29/24 08/29/24 07:22 11:56 MCV MCH MCHC RDW Plt Count MPV Absolute Nucleated RBC Nucleated RBC % (auto) Anion Gap Estim Creat Clear Calc Estimated GFR POC Glucose 137 H 236 H Random Glucose Calcium Random Vancomycin Assessment and Plan (1) 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 Cannon, seizure disorder, HFrEF, HTN, HLD, chronically on 2L home O2, GERD, and ROBERT on CPAP who presented to the ED with?worsening pain in his right hand with 3rd and 4th fingers dry gangrene. Acute encephalopathy, improving Possibly due to hypoglycemia, blood sugars improving and mentation better Head CT and labs otherwise without explanation for encephalopathy Monitor mentation Right hand ischemic changes,s/p amputation 3rd and 4th fingers - not septic, dry gangrene with necrosis s/p amputation right 3rd and 4th fingers, POD2 Followed by ortho, digital for further resection tomorrow with ortho continue IV Vancomycin vancomycin trough Uncontrolled HTN Continue losartan, Amlodipine Doxazosin Chronic hypoxic respiratory failure on 2 L of home oxygen/obstructive sleep apnea on CPAP No acute hypoxia. ESRD on HD M/W/ Continue Velphoro, Lasix nephro- recs Levemir 800 mg t.i.d. with meals, fluid restriction 1.5 L, low potassium, phosphorus and sodium diet. carvedilol to 12.5 mg b.i.d. hyperkalemia improved follow BMP Insulin-dependent type 2 diabetes with hypoglycemia continue Sliding-scale insulin Lantus 10 units at bedtime - restarting at lower dose Seizure disorder Continue Keppra HLD/PAD aspirin Peripheral neuropathy Continue pregabalin DVT Prophylaxis: hep sq reason for continued hospitalization: Dry gangrene s/p amputation, scheduled for further amputation tomorrow Quality Stroke Does the patient have a stroke diagnosis?: No VTE Prior VTE?: No VTE Risk Level:: Medical - moderate - high VTE Device Contraindication: Treatment Not Indicated VTE Drug Contraindication: N/A - Med Ordered
[2024-08-29 15:35] LABS: Glucose, Whole Blood 161 mg/dL (60-115)
[2024-08-29 19:49] LABS: Glucose, Whole Blood 204 mg/dL (60-115)
[2024-08-30] VITALS (11 sets, daily range): BP systolic 129–173; BP diastolic 62–78; PULSE 59–71; RESP 16–18; TEMP 36.7–37.6; O2SAT 91–98
[2024-08-30 03:21] LABS: Glucose, Whole Blood 167 mg/dL (60-115)
--- NOTE | 2024-08-30 05:47 | PC.RT ---
pt has been reusing to wear bipap at night. therefore the order will be dc'd per policy.
[2024-08-30 06:59] LABS: Hematocrit 35.5 % (42.0-52.0); Hemoglobin 11.1 g/dl (14.0-18.0); Mean Corpuscular HGB Conc 31.3 g/dl (31.0-36.0); Mean Corpuscular Hemoglobin 22.9 pg (27.0-33.0); Mean Corpuscular Volume 73.3 fL (80.0-98.0); NRBC Abs Auto 0.000 X10*3/uL (0.0-0.012); NRBC Pct Auto 0.0 /100WBC (0.0-0.2); Platelet Count 261 X10*3/uL (160-400); Red Blood Count 4.84 X10*6/uL (4.60-5.80); White Blood Count 14.5 X10*3/uL (4.8-10.8)
[2024-08-30 07:21] LABS: Anion Gap 18 (12-20); Blood Urea Nitrogen 51 mg/dL (9-16); Calcium 8.6 mg/dL (8.4-10.2); Carbon Dioxide 24 mmol/L (22-29); Chloride 97 mmol/L (96-108); Creatinine Clr Calc Pharmacy 10.1; Estimated Glomerular Filt Rate 9; Potassium 4.4 mmol/L (3.3-5.1); Sodium 135 mmol/L (135-145)
[2024-08-30 08:15] LABS: Glucose, Whole Blood 127 mg/dL (60-115)
--- NOTE | 2024-08-30 08:15 | W.PM.DNNEP ---
Subjective Subjective Date of Service: 08/30/24 This patient was seen during dialysis. Interval history: following for management of ESRD on HD while here for treatment of dry gangrene right hand digits Pt sleeping comfortable during dialysis. Physical Exam Vital Signs: Vital Signs: Last Vital Signs Temp 98.2 F 08/30/24 11:03 Pulse 67 08/30/24 11:03 Resp 17 08/30/24 11:03 BP 173/70 H 08/30/24 11:03 Pulse Ox 97 08/30/24 11:03 O2 Del Method Nasal Cannula 08/30/24 11:03 O2 Flow Rate 2 08/30/24 11:03 BMI result Body Mass Index 27.3 Const: General: lethargic Orientation/consciousness: lethargic Resp: Effort & Inspection: normal respiratory effort and able to speak in complete sentences Auscultation: clear to auscultation bilaterally Cardio: Rate: regular rate Rhythm: regular rhythm Heart sounds: S1 normal heart sound present and S2 normal heart sound present GI: Palpation (GI): Soft to palpation and nontender Skin: Wounds: wounds noted (right necrotic 2nd and 3rd digits ) Extrem: General: No edema and No pedal edema Assessment & Plan Assessment and plan (1) ESRD needing dialysis: Status: Acute Plan ESRD on HD MWF access: Right permcath appears slightly euvolemic H&H 11.1 & 35.5- 10,000 units procrit administered 08/28 phos is 10.4, ensure sevelamer 800mg TID with meals. Calcium 8.9. low potassium, phosphorous, and sodium diet fluid restriction 1.5L continue to monitor electrolytes renal function studies daily blood pressures elevated- oral BP meds held this a.m. due to HD today. will continue to follow Discussed with Dr Rao Time Spent With Patient Time: Total time managing care of this patient today ____ minutes. Procedures Date of Service Date of Service: 08/30/24
[2024-08-30] MEDS: Fluticasone/Umeclidinium/Vilanterol 100/62.5/25 BLST.W.DEV 1 PUFF INHALE (08:22)
[2024-08-30] MEDS: oxyCODONE HCl Immed Release 5 MG TABLET PO (09:32)
--- NOTE | 2024-08-30 10:16 | HO.ANESPROP2 ---
[facility] Active Problems Active Problems: All Active Problems (Updated 08/24/24 @ 11:47 by KYLAH Morales) Status post amputation of finger of right hand (Acute) 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 (Acute) Encephalopathy (Acute) Necrosis of finger (Acute) Numbness and tingling in right hand (Acute) AKA stump complication (Acute) Cellulitis (Acute) ESRD needing dialysis (Acute) Infection of toe (Acute) Pleural effusion (Acute) Acute hypokalemia (Acute) Osteomyelitis (Acute) Somatization disorder (Acute) Trapped lung (Acute) Recurrent pleural effusion on right (Chronic) Exudative pleural effusion (Acute) Hyponatremia (Acute) Hyperkalemia (Acute) Type 2 diabetes mellitus (Acute) Dry gangrene (Acute) PVD (peripheral vascular disease) (Acute) Postop check (Acute) Acute on chronic systolic and diastolic heart failure, NYHA class 3 (Chronic) Past Medical History Medical History Above knee amputation of right lower extremity Left ventricular systolic dysfunction (LVSD) PVD (peripheral vascular disease) Postop check Acute pericardial effusion Right sided weakness Dehiscence of wound Peripheral arterial disease Dry gangrene Cellulitis of right foot HFrEF (heart failure with reduced ejection fraction) Chronic combined systolic and diastolic CHF (congestive heart failure) Chronic pericardial effusion Arthritis Asthma Restless leg syndrome Acute on chronic systolic and diastolic heart failure, NYHA class 3 Anemia Occlusive thrombus Pulmonary edema ROBERT (obstructive sleep apnea) Type 2 diabetes mellitus Hyperlipidemia Hypertension A-V fistula ESRD on dialysis Falling Family History Family History Father No problems noted. Mother No problems noted. Family history of problems with anesthesia: No Surgical History Surgical History Status post creation of pericardial window Hx of right BKA History of transmetatarsal amputation of foot Status post transmetatarsal amputation of right foot Postop check History of surgery H/O colonoscopy Recurrent pleural effusion Pleural effusion on right (07/13/23) History of Problems with Anesthesia: No Social History Social History Household Members: Family Household Members Other:: son Housing: House Are you a primary child care assistant to a significant other at home: No Do you presently have visiting nurse or other home services: No Unable to assess alcohol history related to: Unknown Alcohol intake: former Comment: n Patient Tobacco Use Status: Former Tobacco user Tobacco use type: Cigarette Second Hand Smoke Exposure: No Advance Directives Date on File: 10/04/23 service: No Current occupational status: disabled 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 Meds Allergies Allergy/AdvReac Type Severity Reaction Status Date / Time Iodinated Contrast Media Allergy Severe Facial Verified 08/22/24 11:22 (Contrast Dye) Swelling hydralazine AdvReac Severe vasculitis Verified 08/22/24 11:22 Active Medications: Current Medications Acetaminophen (Acetaminophen 325 Mg Tablet) 650 mg PO Q6H PRN PRN Reason: Pain, Mild 1-3,fever,headache Last Admin: 08/25/24 12:20 Dose: 650 mg Albuterol Sulfate (Albuterol Sulfate 90 Mcg 8 Gm Inhaler) 2 puff INHALE Q4H PRN PRN Reason: Wheezing Allopurinol (Allopurinol 100 Mg Tablet) 100 mg PO MOWEFR@1600 [facility] Last Admin: 08/28/24 17:58 Dose: 100 mg Amlodipine Besylate (Amlodipine Besylate 10 Mg Tablet) 10 mg PO DAILY [facility]; Protocol Last Admin: 08/29/24 09:04 Dose: 10 mg Aspirin (Aspirin Enteric Coated 81 Mg Tablet.) 81 mg PO MOWEFR@1600 [facility] Last Admin: 08/28/24 17:57 Dose: 81 mg Aspirin (Aspirin Enteric Coated 81 Mg Tablet.) 81 mg PO SUTUTHSA@0900 [facility] Last Admin: 08/29/24 09:05 Dose: 81 mg Atorvastatin Calcium (Atorvastatin Calcium 40 Mg Tablet) 40 mg PO MOWEFR@1600 [facility] Last Admin: 08/28/24 17:58 Dose: 40 mg Atorvastatin Calcium (Atorvastatin Calcium 40 Mg Tablet) 40 mg PO SUTUTHSA@0900 [facility] Last Admin: 08/29/24 09:06 Dose: 40 mg Calcium Carbonate (Calcium Carbonate 750 Mg Tab.Chew) 750 mg PO Q4H PRN PRN Reason: Heartburn Carvedilol (Carvedilol 12.5 Mg Tablet) 12.5 mg PO BID [facility]; Protocol Last Admin: 08/29/24 20:48 Dose: 12.5 mg Dextrose (Dextrose 50 % 25 Gm/50 Ml Syringe) 25 gm IVPUSH Q15M PRN; Protocol PRN Reason: per Hypoglycemia Standing Ord. Last Admin: 08/27/24 07:59 Dose: 25 gm Docusate Sodium (Docusate Sodium 100 Mg Capsule) 100 mg PO DAILY [facility] Last Admin: 08/29/24 09:04 Dose: 100 mg Doxazosin Mesylate (Doxazosin Mesylate 2 Mg Tablet) 4 mg PO BEDTIME [facility]; Protocol Last Admin: 08/29/24 20:47 Dose: 4 mg Fluticasone/Umeclidinium/Vilanterol (Fluticasone/Umeclidinium/Vilanterol 100/62.5/25 Blst.W.Dev) 1 puff INHALE RDAILY [facility] Last Admin: 08/30/24 08:22 Dose: 1 puff Furosemide (Furosemide 40 Mg Tablet) 80 mg PO MOWEFR@1600 [facility]; Protocol Last Admin: 08/28/24 17:57 Dose: 80 mg Furosemide (Furosemide 40 Mg Tablet) 80 mg PO SUTUTHSA@0900 [facility]; Protocol Last Admin: 08/29/24 09:05 Dose: 80 mg Glucose (Glucose Gel 15 Gm Gel..Gram.) 15 gm PO Q15M PRN PRN Reason: per Hypoglycemia Standing Ord. Last Admin: 08/25/24 04:50 Dose: 15 gm Heparin Sodium (Porcine) (Heparin Sodium,Porcine 5,000 Unit/Ml Vial) 5,000 unit SUBCUT Q12H [facility] On Hold: 08/30/24 00:00 Last Admin: 08/29/24 21:04 Dose: 5,000 unit Vancomycin HCl 500 mg/ Sodium (Chloride) 110 mls @ 110 mls/hr IV ONCE ONE Stop: 08/23/24 20:59 Levetiracetam (Keppra) 1,000 mg in 100 mls @ 400 mls/hr IV Q12H [facility] Last Infusion: 08/29/24 21:05 Dose: Infused Insulin Glargine (Insulin Glargine,Hum.Rec.Anlog 100 Unit/Ml 10 Ml Vial) 10 unit SUBCUT BEDTIME [facility] On Hold: 08/28/24 21:00 Insulin Human Lispro (Insulin Lispro 100 Unit/Ml 3 Ml Vial) 0 unit SUBCUT QIDACHS [facility]; Protocol Last Admin: 08/30/24 08:14 Dose: Not Given Losartan Potassium (Losartan Potassium 25 Mg Tablet) 25 mg PO MOWEFR@1600 [facility]; Protocol Last Admin: 08/28/24 17:57 Dose: 25 mg Losartan Potassium (Losartan Potassium 25 Mg Tablet) 25 mg PO SUTUTHSA@0900 [facility]; Protocol Last Admin: 08/29/24 09:05 Dose: 25 mg Magnesium Hydroxide (Milk Of Magnesia 30 Ml Oral.Susp) 30 ml PO DAILY PRN PRN Reason: Constipation Melatonin (Melatonin 3 Mg Tablet) 6 mg PO BEDTIME PRN PRN Reason: Insomnia Last Admin: 08/28/24 22:00 Dose: 6 mg Naloxone HCl (Naloxone Hcl 0.4 Mg/Ml Vial) 0.04 mg IVPUSH Q5M PRN PRN Reason: Excessive sedation or RR < 8 Omeprazole (Omeprazole 20 Mg Capsule.Dr) 20 mg PO DAILY@0630 [facility] Last Admin: 08/30/24 06:15 Dose: Not Given Ondansetron HCl (Ondansetron Hcl 4 Mg/2 Ml Vial) 4 mg IVPUSH Q8H PRN PRN Reason: Nausea and Vomiting Oxycodone HCl (Oxycodone Hcl Immed Release 5 Mg Tablet) 5 mg PO Q6H PRN PRN Reason: Pain, Severe (Pain Scale 7-10) Last Admin: 08/30/24 09:32 Dose: 5 mg Pharmacy Consult (Consult Rx Vancomycin Dosing) 1 each MISCELLANE DAILY PRN PRN Reason: Consult order Pregabalin (Pregabalin 75 Mg Capsule) 75 mg PO DAILY [facility] Last Admin: 08/29/24 09:04 Dose: 75 mg Sevelamer Carbonate (Sevelamer Carbonate Tablet 800 Mg Tablet) 800 mg PO TIDWM [facility] Last Admin: 08/30/24 09:14 Dose: Not Given Sodium Chloride (0.9 % Sodium Chloride Flush 3 Ml Syringe) 3 ml IVFLUSH [facility] Last Admin: 08/30/24 09:14 Dose: Not Given Home Medications ?Medication ?Instructions ?Recorded ?Confirmed ?Last Taken ?Type allopurinol 100 mg tablet 100 mg PO MOWEFR@1600 04/19/22 08/22/24 08/21/24 History atorvastatin 40 mg tablet 40 mg PO SUTUTHSA@0900 04/19/22 08/22/24 08/21/24 History doxazosin 4 mg tablet 4 mg PO BEDTIME 04/19/22 08/22/24 08/21/24 History furosemide 80 mg tablet 80 mg PO SUTUTHSA@0900 04/19/22 08/22/24 08/21/24 History omeprazole 20 mg capsule,delayed 20 mg PO DAILY@0630 04/19/22 08/22/24 08/21/24 History release aspirin 81 mg tablet,delayed 81 mg PO SUTUTHSA@0900 06/20/23 08/22/24 08/21/24 History release pregabalin 75 mg capsule 75 mg PO DAILY 06/20/23 08/22/24 08/21/24 History aspirin 81 mg tablet,delayed 81 mg PO MOWEFR@1600 04/05/24 08/22/24 08/21/24 History release atorvastatin 40 mg tablet 40 mg PO MOWEFR@1600 04/05/24 08/22/24 08/21/24 History fluticasone fur. 100 mcg-umeclid 1 inh inhalation DAILY 04/05/24 08/22/24 08/21/24 History 62.5 mcg-vilant 25 mcg inhalat.powder (Trelegy Ellipta) furosemide 80 mg tablet 80 mg PO MOWEFR@1600 04/05/24 08/22/24 08/21/24 History losartan 25 mg tablet 25 mg PO MOWEFR@1600 04/05/24 08/22/24 08/21/24 History losartan 25 mg tablet 25 mg PO SUTUTHSA@0900 04/05/24 08/22/24 08/21/24 History insulin glargine 100 unit/mL (3 22 unit subcut BEDTIME 05/01/24 08/22/24 08/21/24 History mL) subcutaneous pen (Lantus Solostar U-100 Insulin) acetaminophen 500 mg tablet 1,000 mg PO Q8H PRN Pain 05/26/24 08/22/24 Unknown History amlodipine 10 mg tablet 10 mg PO DAILY 05/26/24 08/22/24 08/21/24 History calcium carbonate (Calcium 500) 500 mg PO TID 05/26/24 08/22/24 08/21/24 History docusate sodium 100 mg capsule 100 mg PO DAILY 05/26/24 08/22/24 08/21/24 History insulin lispro 100 unit/mL See Rx Instructions .Route .COMPLEX 05/26/24 08/22/24 08/21/24 History subcutaneous solution (Humalog U-100 Insulin) albuterol sulfate 90 mcg/actuation 2 puff inhalation Q4H PRN wheezing 08/22/24 08/22/24 Unknown History aerosol inhaler (Ventolin HFA) carvedilol 6.25 mg tablet 6.25 mg PO BID 08/22/24 08/22/24 Unknown History ipratropium 0.5 mg-albuterol 3 mg 3 ml inhalation QID PRN Shortness 08/22/24 08/22/24 08/21/24 History (2.5 mg base)/3 mL nebulization Of Breath soln sucroferric oxyhydroxide 500 mg 500 mg PO TID 08/22/24 08/22/24 08/21/24 History chewable tablet (Velphoro) Exam Height,Weight and Vital Signs: Height 5 ft 4 in Weight 72.2 kg Last Vital Signs Temp 98.0 F 08/30/24 03:24 Pulse 69 08/30/24 08:22 Resp 18 08/30/24 08:22 BP 160/72 H 08/30/24 03:24 Pulse Ox 96 08/30/24 03:24 O2 Del Method Nasal Cannula 08/30/24 03:24 O2 Flow Rate 2 08/30/24 03:24 Pertinent Lab Results Pertinent Lab Results: Laboratory Tests 08/22/24 08/22/24 08/22/24 11:41 14:20 16:08 WBC 16.3 H RBC 4.98 D Hgb 11.4 L Hct 37.1 L MCV 74.5 L MCH 22.9 L MCHC 30.7 L RDW 19.9 H Plt Count 194 MPV Not Reportable Immature Gran % (Auto) 0.4 Neut % (Auto) 86.4 H Lymph % (Auto) 7.2 L [place] % (Auto) 5.5 Eos % (Auto) 0.3 Baso % (Auto) 0.2 Lymph # (Auto) 1.2 [place] # (Auto) 0.9 Eos # (Auto) 0.1 Baso # (Auto) 0.0 Abs Immat Gran (auto) 0.07 H Absolute Neuts (auto) 14.1 H Absolute Nucleated RBC 0.030 H Nucleated RBC % (auto) 0.2 VBG pH VBG pCO2 VBG pO2 VBG HCO3 VBG O2 Saturation VBG Base Excess Sodium 137 Potassium 5.0 Chloride 96 Carbon Dioxide 27 Anion Gap 19 BUN 54 H Creatinine 6.03 H* Estim Creat Clear Calc 10.8 Estimated GFR 9 POC Glucose 381 H* Random Glucose 392 H* Lactic Acid 1.6 Calcium 8.6 Phosphorus Magnesium 1.6 Total Bilirubin 0.5 Direct Bilirubin AST 23 ALT 24 Alkaline Phosphatase 159 H Ammonia C-Reactive Protein 16.41 H Total Protein 7.1 Albumin 3.5 Random Vancomycin 08/22/24 08/22/24 08/22/24 17:11 18:49 21:05 WBC RBC Hgb Hct MCV MCH MCHC RDW Plt Count MPV Immature Gran % (Auto) Neut % (Auto) Lymph % (Auto) [place] % (Auto) Eos % (Auto) Baso % (Auto) Lymph # (Auto) [place] # (Auto) Eos # (Auto) Baso # (Auto) Abs Immat Gran (auto) Absolute Neuts (auto) Absolute Nucleated RBC Nucleated RBC % (auto) VBG pH VBG pCO2 VBG pO2 VBG HCO3 VBG O2 Saturation VBG Base Excess Sodium Potassium Chloride Carbon Dioxide Anion Gap BUN Creatinine Estim Creat Clear Calc Estimated GFR POC Glucose 405 H* 179 H 82 Random Glucose Lactic Acid Calcium Phosphorus Magnesium Total Bilirubin Direct Bilirubin AST ALT Alkaline Phosphatase Ammonia C-Reactive Protein Total Protein Albumin Random Vancomycin 08/23/24 08/23/24 08/23/24 02:46 06:33 06:55 WBC 15.8 H RBC 4.77 Hgb 11.0 L Hct 35.1 L MCV 73.6 L MCH 23.1 L MCHC 31.3 RDW 19.4 H Plt Count 183 MPV Not Reportable Immature Gran % (Auto) Neut % (Auto) Lymph % (Auto) [place] % (Auto) Eos % (Auto) Baso % (Auto) Lymph # (Auto) [place] # (Auto) Eos # (Auto) Baso # (Auto) Abs Immat Gran (auto) Absolute Neuts (auto) Absolute Nucleated RBC 0.020 H Nucleated RBC % (auto) 0.1 VBG pH VBG pCO2 VBG pO2 VBG HCO3 VBG O2 Saturation VBG Base Excess Sodium Potassium Chloride Carbon Dioxide Anion Gap BUN Creatinine Estim Creat Clear Calc Estimated GFR POC Glucose 184 H 192 H Random Glucose Lactic Acid Calcium Phosphorus Magnesium Total Bilirubin Direct Bilirubin AST ALT Alkaline Phosphatase Ammonia C-Reactive Protein Total Protein Albumin Random Vancomycin 08/23/24 08/23/24 08/23/24 10:48 11:49 16:05 WBC RBC Hgb Hct MCV MCH MCHC RDW Plt Count MPV Immature Gran % (Auto) Neut % (Auto) Lymph % (Auto) [place] % (Auto) Eos % (Auto) Baso % (Auto) Lymph # (Auto) [place] # (Auto) Eos # (Auto) Baso # (Auto) Abs Immat Gran (auto) Absolute Neuts (auto) Absolute Nucleated RBC Nucleated RBC % (auto) VBG pH VBG pCO2 VBG pO2 VBG HCO3 VBG O2 Saturation VBG Base Excess Sodium 136 Potassium 5.6 H Chloride 95 L Carbon Dioxide 25 Anion Gap 22 H BUN 70 H Creatinine 7.76 H* Estim Creat Clear Calc 8.2 Estimated GFR 7 POC Glucose 174 H 190 H Random Glucose 183 H Lactic Acid Calcium 8.6 Phosphorus 7.7 H Magnesium Total Bilirubin Direct Bilirubin AST ALT Alkaline Phosphatase Ammonia C-Reactive Protein Total Protein Albumin Random Vancomycin 08/23/24 08/24/24 08/24/24 20:34 06:33 10:09 WBC 15.9 H RBC 4.59 L Hgb 10.5 L Hct 33.8 L MCV 73.6 L MCH 22.9 L MCHC 31.1 RDW 19.4 H Plt Count 180 MPV Not Reportable Immature Gran % (Auto) 0.5 H Neut % (Auto) 85.0 H Lymph % (Auto) 5.2 L [place] % (Auto) 7.3 Eos % (Auto) 1.8 Baso % (Auto) 0.2 Lymph # (Auto) 0.8 L [place] # (Auto) 1.2 Eos # (Auto) 0.3 Baso # (Auto) 0.0 Abs Immat Gran (auto) 0.08 H Absolute Neuts (auto) 13.5 H Absolute Nucleated RBC 0.030 H Nucleated RBC % (auto) 0.2 VBG pH VBG pCO2 VBG pO2 VBG HCO3 VBG O2 Saturation VBG Base Excess Sodium 138 Potassium 4.5 Chloride 97 Carbon Dioxide 27 Anion Gap 19 BUN 56 H Creatinine 6.06 H* Estim Creat Clear Calc 10.6 Estimated GFR 9 POC Glucose 200 H 50 L* Random Glucose 84 Lactic Acid Calcium 8.6 Phosphorus Magnesium Total Bilirubin Direct Bilirubin AST ALT Alkaline Phosphatase Ammonia C-Reactive Protein Total Protein Albumin Random Vancomycin 08/24/24 08/24/24 08/24/24 10:37 10:47 10:58 WBC RBC Hgb Hct MCV MCH MCHC RDW Plt Count MPV Immature Gran % (Auto) Neut % (Auto) Lymph % (Auto) [place] % (Auto) Eos % (Auto) Baso % (Auto) Lymph # (Auto) [place] # (Auto) Eos # (Auto) Baso # (Auto) Abs Immat Gran (auto) Absolute Neuts (auto) Absolute Nucleated RBC Nucleated RBC % (auto) VBG pH VBG pCO2 VBG pO2 VBG HCO3 VBG O2 Saturation VBG Base Excess Sodium Potassium Chloride Carbon Dioxide Anion Gap BUN Creatinine Estim Creat Clear Calc Estimated GFR POC Glucose 88 101 Random Glucose Lactic Acid Calcium Phosphorus Magnesium Total Bilirubin Direct Bilirubin AST ALT Alkaline Phosphatase Ammonia C-Reactive Protein Total Protein Albumin Random Vancomycin 16.7 08/24/24 08/24/24 08/24/24 11:38 11:47 15:12 WBC RBC Hgb Hct MCV MCH MCHC RDW Plt Count MPV Immature Gran % (Auto) Neut % (Auto) Lymph % (Auto) [place] % (Auto) Eos % (Auto) Baso % (Auto) Lymph # (Auto) [place] # (Auto) Eos # (Auto) Baso # (Auto) Abs Immat Gran (auto) Absolute Neuts (auto) Absolute Nucleated RBC Nucleated RBC % (auto) VBG pH 7.38 VBG pCO2 60 VBG pO2 58 VBG HCO3 36 H VBG O2 Saturation 83.0 VBG Base Excess 9.0 Sodium 140 Potassium 4.1 Chloride 97 Carbon Dioxide 30 H Anion Gap 17 BUN 35 H Creatinine 4.61 H* Estim Creat Clear Calc 13.9 Estimated GFR 13 POC Glucose 63 Random Glucose 101 Lactic Acid Calcium 9.0 Phosphorus Magnesium Total Bilirubin 0.5 Direct Bilirubin 0.3 AST 18 ALT 19 Alkaline Phosphatase 143 H Ammonia 32 C-Reactive Protein Total Protein 7.0 Albumin 3.4 L Random Vancomycin 08/24/24 08/24/24 08/24/24 15:31 15:54 20:26 WBC RBC Hgb Hct MCV MCH MCHC RDW Plt Count MPV Immature Gran % (Auto) Neut % (Auto) Lymph % (Auto) [place] % (Auto) Eos % (Auto) Baso % (Auto) Lymph # (Auto) [place] # (Auto) Eos # (Auto) Baso # (Auto) Abs Immat Gran (auto) Absolute Neuts (auto) Absolute Nucleated RBC Nucleated RBC % (auto) VBG pH VBG pCO2 VBG pO2 VBG HCO3 VBG O2 Saturation VBG Base Excess Sodium Potassium Chloride Carbon Dioxide Anion Gap BUN Creatinine Estim Creat Clear Calc Estimated GFR POC Glucose 59 L* 85 100 Random Glucose Lactic Acid Calcium Phosphorus Magnesium Total Bilirubin Direct Bilirubin AST ALT Alkaline Phosphatase Ammonia C-Reactive Protein Total Protein Albumin Random Vancomycin 08/25/24 08/25/24 08/25/24 01:09 04:20 06:00 WBC RBC Hgb Hct MCV MCH MCHC RDW Plt Count MPV Immature Gran % (Auto) Neut % (Auto) Lymph % (Auto) [place] % (Auto) Eos % (Auto) Baso % (Auto) Lymph # (Auto) [place] # (Auto) Eos # (Auto) Baso # (Auto) Abs Immat Gran (auto) Absolute Neuts (auto) Absolute Nucleated RBC Nucleated RBC % (auto) VBG pH VBG pCO2 VBG pO2 VBG HCO3 VBG O2 Saturation VBG Base Excess Sodium Potassium Chloride Carbon Dioxide Anion Gap BUN Creatinine Estim Creat Clear Calc Estimated GFR POC Glucose 69 58 L* 102 Random Glucose Lactic Acid Calcium Phosphorus Magnesium Total Bilirubin Direct Bilirubin AST ALT Alkaline Phosphatase Ammonia C-Reactive Protein Total Protein Albumin Random Vancomycin 08/25/24 08/25/24 08/25/24 07:11 07:15 07:40 WBC 13.7 H RBC 4.57 L Hgb 10.6 L Hct 34.0 L MCV 74.4 L MCH 23.2 L MCHC 31.2 RDW 19.3 H Plt Count 164 MPV TNP Immature Gran % (Auto) 0.8 H Neut % (Auto) 81.0 H Lymph % (Auto) 8.6 L [place] % (Auto) 8.4 Eos % (Auto) 1.1 Baso % (Auto) 0.1 Lymph # (Auto) 1.2 [place] # (Auto) 1.2 Eos # (Auto) 0.2 Baso # (Auto) 0.0 Abs Immat Gran (auto) 0.11 H Absolute Neuts (auto) 11.1 H Absolute Nucleated RBC 0.030 H Nucleated RBC % (auto) 0.2 VBG pH 7.43 VBG pCO2 47 VBG pO2 64 VBG HCO3 31 H VBG O2 Saturation 88.0 VBG Base Excess 6.3 Sodium 134 L Potassium 5.3 H D Chloride 94 L Carbon Dioxide 27 Anion Gap 18 BUN 49 H Creatinine 5.96 H* Estim Creat Clear Calc 10.8 Estimated GFR 9 POC Glucose 95 Random Glucose 90 Lactic Acid Calcium 8.8 Phosphorus Magnesium Total Bilirubin Direct Bilirubin AST ALT Alkaline Phosphatase Ammonia C-Reactive Protein Total Protein Albumin Random Vancomycin 08/25/24 08/25/24 08/25/24 10:25 13:44 16:31 WBC RBC Hgb Hct MCV MCH MCHC RDW Plt Count MPV Immature Gran % (Auto) Neut % (Auto) Lymph % (Auto) [place] % (Auto) Eos % (Auto) Baso % (Auto) Lymph # (Auto) [place] # (Auto) Eos # (Auto) Baso # (Auto) Abs Immat Gran (auto) Absolute Neuts (auto) Absolute Nucleated RBC Nucleated RBC % (auto) VBG pH VBG pCO2 VBG pO2 VBG HCO3 VBG O2 Saturation VBG Base Excess Sodium Potassium Chloride Carbon Dioxide Anion Gap BUN Creatinine Estim Creat Clear Calc Estimated GFR POC Glucose 180 H 168 H 165 H Random Glucose Lactic Acid Calcium Phosphorus Magnesium Total Bilirubin Direct Bilirubin AST ALT Alkaline Phosphatase Ammonia C-Reactive Protein Total Protein Albumin Random Vancomycin 08/25/24 08/26/24 08/26/24 19:56 01:18 04:41 WBC RBC Hgb Hct MCV MCH MCHC RDW Plt Count MPV Immature Gran % (Auto) Neut % (Auto) Lymph % (Auto) [place] % (Auto) Eos % (Auto) Baso % (Auto) Lymph # (Auto) [place] # (Auto) Eos # (Auto) Baso # (Auto) Abs Immat Gran (auto) Absolute Neuts (auto) Absolute Nucleated RBC Nucleated RBC % (auto) VBG pH VBG pCO2 VBG pO2 VBG HCO3 VBG O2 Saturation VBG Base Excess Sodium Potassium Chloride Carbon Dioxide Anion Gap BUN Creatinine Estim Creat Clear Calc Estimated GFR POC Glucose 134 H 114 88 Random Glucose Lactic Acid Calcium Phosphorus Magnesium Total Bilirubin Direct Bilirubin AST ALT Alkaline Phosphatase Ammonia C-Reactive Protein Total Protein Albumin Random Vancomycin 08/26/24 08/26/24 08/26/24 07:00 08:49 10:06 WBC 16.4 H RBC 4.62 Hgb 10.7 L Hct 33.6 L MCV 72.7 L MCH 23.2 L MCHC 31.8 RDW 18.8 H Plt Count 178 MPV Not Reportable Immature Gran % (Auto) 0.7 H Neut % (Auto) 82.8 H Lymph % (Auto) 6.7 L [place] % (Auto) 8.6 Eos % (Auto) 1.0 Baso % (Auto) 0.2 Lymph # (Auto) 1.1 L [place] # (Auto) 1.4 H Eos # (Auto) 0.2 Baso # (Auto) 0.0 Abs Immat Gran (auto) 0.12 H Absolute Neuts (auto) 13.5 H Absolute Nucleated RBC 0.000 Nucleated RBC % (auto) 0.0 VBG pH VBG pCO2 VBG pO2 VBG HCO3 VBG O2 Saturation VBG Base Excess Sodium 132 L Potassium 6.1 H* Chloride 91 L Carbon Dioxide 24 Anion Gap 23 H BUN 64 H Creatinine 7.92 H* Estim Creat Clear Calc 8.1 Estimated GFR 7 POC Glucose 80 97 Random Glucose 66 Lactic Acid Calcium 8.9 Phosphorus 8.9 H Magnesium Total Bilirubin Direct Bilirubin AST ALT Alkaline Phosphatase Ammonia C-Reactive Protein Total Protein Albumin Random Vancomycin 08/26/24 08/26/24 08/26/24 15:25 16:57 19:16 WBC RBC Hgb Hct MCV MCH MCHC RDW Plt Count MPV Immature Gran % (Auto) Neut % (Auto) Lymph % (Auto) [place] % (Auto) Eos % (Auto) Baso % (Auto) Lymph # (Auto) [place] # (Auto) Eos # (Auto) Baso # (Auto) Abs Immat Gran (auto) Absolute Neuts (auto) Absolute Nucleated RBC Nucleated RBC % (auto) VBG pH VBG pCO2 VBG pO2 VBG HCO3 VBG O2 Saturation VBG Base Excess Sodium Potassium Chloride Carbon Dioxide Anion Gap BUN Creatinine Estim Creat Clear Calc Estimated GFR POC Glucose 127 H 131 H Random Glucose Lactic Acid Calcium Phosphorus Magnesium Total Bilirubin Direct Bilirubin AST ALT Alkaline Phosphatase Ammonia C-Reactive Protein Total Protein Albumin Random Vancomycin 12.3 L 08/26/24 08/26/24 08/27/24 20:07 22:56 01:20 WBC RBC Hgb Hct MCV MCH MCHC RDW Plt Count MPV Immature Gran % (Auto) Neut % (Auto) Lymph % (Auto) [place] % (Auto) Eos % (Auto) Baso % (Auto) Lymph # (Auto) [place] # (Auto) Eos # (Auto) Baso # (Auto) Abs Immat Gran (auto) Absolute Neuts (auto) Absolute Nucleated RBC Nucleated RBC % (auto) VBG pH 7.41 VBG pCO2 51 VBG pO2 73 VBG HCO3 33 H VBG O2 Saturation 92.0 VBG Base Excess 7.1 Sodium Potassium Chloride Carbon Dioxide Anion Gap BUN Creatinine Estim Creat Clear Calc Estimated GFR POC Glucose 121 H 95 Random Glucose Lactic Acid Calcium Phosphorus Magnesium Total Bilirubin Direct Bilirubin AST ALT Alkaline Phosphatase Ammonia C-Reactive Protein Total Protein Albumin Random Vancomycin 08/27/24 08/27/24 08/27/24 03:11 06:07 07:02 WBC 14.6 H RBC 4.55 L Hgb 10.4 L Hct 33.1 L MCV 72.7 L MCH 22.9 L MCHC 31.4 RDW 18.8 H Plt Count 189 MPV Not Reportable Immature Gran % (Auto) Neut % (Auto) Lymph % (Auto) [place] % (Auto) Eos % (Auto) Baso % (Auto) Lymph # (Auto) [place] # (Auto) Eos # (Auto) Baso # (Auto) Abs Immat Gran (auto) Absolute Neuts (auto) Absolute Nucleated RBC 0.000 Nucleated RBC % (auto) 0.0 VBG pH VBG pCO2 VBG pO2 VBG HCO3 VBG O2 Saturation VBG Base Excess Sodium 136 Potassium 4.5 D Chloride 96 Carbon Dioxide 25 Anion Gap 20 BUN 37 H Creatinine 5.19 H* Estim Creat Clear Calc 12.4 Estimated GFR 11 POC Glucose 90 75 Random Glucose 76 Lactic Acid Calcium 9.2 Phosphorus Magnesium Total Bilirubin Direct Bilirubin AST ALT Alkaline Phosphatase Ammonia C-Reactive Protein Total Protein Albumin Random Vancomycin 08/27/24 08/27/24 08/27/24 08:36 12:31 16:15 WBC RBC Hgb Hct MCV MCH MCHC RDW Plt Count MPV Immature Gran % (Auto) Neut % (Auto) Lymph % (Auto) [place] % (Auto) Eos % (Auto) Baso % (Auto) Lymph # (Auto) [place] # (Auto) Eos # (Auto) Baso # (Auto) Abs Immat Gran (auto) Absolute Neuts (auto) Absolute Nucleated RBC Nucleated RBC % (auto) VBG pH VBG pCO2 VBG pO2 VBG HCO3 VBG O2 Saturation VBG Base Excess Sodium Potassium Chloride Carbon Dioxide Anion Gap BUN Creatinine Estim Creat Clear Calc Estimated GFR POC Glucose 166 H 101 118 H Random Glucose Lactic Acid Calcium Phosphorus Magnesium Total Bilirubin Direct Bilirubin AST ALT Alkaline Phosphatase Ammonia C-Reactive Protein Total Protein Albumin Random Vancomycin 08/27/24 08/27/24 08/28/24 19:41 20:57 01:19 WBC RBC Hgb Hct MCV MCH MCHC RDW Plt Count MPV Immature Gran % (Auto) Neut % (Auto) Lymph % (Auto) [place] % (Auto) Eos % (Auto) Baso % (Auto) Lymph # (Auto) [place] # (Auto) Eos # (Auto) Baso # (Auto) Abs Immat Gran (auto) Absolute Neuts (auto) Absolute Nucleated RBC Nucleated RBC % (auto) VBG pH VBG pCO2 VBG pO2 VBG HCO3 VBG O2 Saturation VBG Base Excess Sodium Potassium Chloride Carbon Dioxide Anion Gap BUN Creatinine Estim Creat Clear Calc Estimated GFR POC Glucose 224 H 222 H 278 H Random Glucose Lactic Acid Calcium Phosphorus Magnesium Total Bilirubin Direct Bilirubin AST ALT Alkaline Phosphatase Ammonia C-Reactive Protein Total Protein Albumin Random Vancomycin 08/28/24 08/28/24 08/28/24 01:39 04:28 07:05 WBC 15.0 H RBC 4.59 L Hgb 10.5 L Hct 33.8 L MCV 73.6 L MCH 22.9 L MCHC 31.1 RDW 18.8 H Plt Count 218 MPV Not Reportable Immature Gran % (Auto) Neut % (Auto) Lymph % (Auto) [place] % (Auto) Eos % (Auto) Baso % (Auto) Lymph # (Auto) [place] # (Auto) Eos # (Auto) Baso # (Auto) Abs Immat Gran (auto) Absolute Neuts (auto) Absolute Nucleated RBC 0.000 Nucleated RBC % (auto) 0.0 VBG pH VBG pCO2 VBG pO2 VBG HCO3 VBG O2 Saturation VBG Base Excess Sodium 137 Potassium 5.0 Chloride 97 Carbon Dioxide 23 Anion Gap 22 H BUN 56 H Creatinine 7.02 H* Estim Creat Clear Calc 9.1 Estimated GFR 8 POC Glucose 267 H 209 H Random Glucose 243 H Lactic Acid Calcium 8.9 Phosphorus 10.4 H Magnesium Total Bilirubin Direct Bilirubin AST ALT Alkaline Phosphatase Ammonia C-Reactive Protein Total Protein Albumin Random Vancomycin 08/28/24 08/28/24 08/28/24 07:29 11:23 16:15 WBC RBC Hgb Hct MCV MCH MCHC RDW Plt Count MPV Immature Gran % (Auto) Neut % (Auto) Lymph % (Auto) [place] % (Auto) Eos % (Auto) Baso % (Auto) Lymph # (Auto) [place] # (Auto) Eos # (Auto) Baso # (Auto) Abs Immat Gran (auto) Absolute Neuts (auto) Absolute Nucleated RBC Nucleated RBC % (auto) VBG pH VBG pCO2 VBG pO2 VBG HCO3 VBG O2 Saturation VBG Base Excess Sodium Potassium Chloride Carbon Dioxide Anion Gap BUN Creatinine Estim Creat Clear Calc Estimated GFR POC Glucose 230 H 224 H 170 H Random Glucose Lactic Acid Calcium Phosphorus Magnesium Total Bilirubin Direct Bilirubin AST ALT Alkaline Phosphatase Ammonia C-Reactive Protein Total Protein Albumin Random Vancomycin 08/28/24 08/28/24 08/28/24 18:16 20:08 23:34 WBC RBC Hgb Hct MCV MCH MCHC RDW Plt Count MPV Immature Gran % (Auto) Neut % (Auto) Lymph % (Auto) [place] % (Auto) Eos % (Auto) Baso % (Auto) Lymph # (Auto) [place] # (Auto) Eos # (Auto) Baso # (Auto) Abs Immat Gran (auto) Absolute Neuts (auto) Absolute Nucleated RBC Nucleated RBC % (auto) VBG pH VBG pCO2 VBG pO2 VBG HCO3 VBG O2 Saturation VBG Base Excess Sodium Potassium Chloride Carbon Dioxide Anion Gap BUN Creatinine Estim Creat Clear Calc Estimated GFR POC Glucose 268 H 181 H Random Glucose Lactic Acid Calcium Phosphorus Magnesium Total Bilirubin Direct Bilirubin AST ALT Alkaline Phosphatase Ammonia C-Reactive Protein Total Protein Albumin Random Vancomycin 12.7 L 08/29/24 08/29/24 08/29/24 03:37 06:17 07:22 WBC 13.7 H RBC 4.64 Hgb 10.4 L Hct 34.3 L MCV 73.9 L MCH 22.4 L MCHC 30.3 L RDW 18.8 H Plt Count 241 MPV Not Reportable Immature Gran % (Auto) Neut % (Auto) Lymph % (Auto) [place] % (Auto) Eos % (Auto) Baso % (Auto) Lymph # (Auto) [place] # (Auto) Eos # (Auto) Baso # (Auto) Abs Immat Gran (auto) Absolute Neuts (auto) Absolute Nucleated RBC 0.000 Nucleated RBC % (auto) 0.0 VBG pH VBG pCO2 VBG pO2 VBG HCO3 VBG O2 Saturation VBG Base Excess Sodium 138 Potassium 4.3 Chloride 99 Carbon Dioxide 24 Anion Gap 19 BUN 35 H Creatinine 4.94 H* Estim Creat Clear Calc 13.0 Estimated GFR 12 POC Glucose 186 H 137 H Random Glucose 152 H Lactic Acid Calcium 8.8 Phosphorus Magnesium Total Bilirubin Direct Bilirubin AST ALT Alkaline Phosphatase Ammonia C-Reactive Protein Total Protein Albumin Random Vancomycin 08/29/24 08/29/24 08/29/24 11:56 15:31 19:46 WBC RBC Hgb Hct MCV MCH MCHC RDW Plt Count MPV Immature Gran % (Auto) Neut % (Auto) Lymph % (Auto) [place] % (Auto) Eos % (Auto) Baso % (Auto) Lymph # (Auto) [place] # (Auto) Eos # (Auto) Baso # (Auto) Abs Immat Gran (auto) Absolute Neuts (auto) Absolute Nucleated RBC Nucleated RBC % (auto) VBG pH VBG pCO2 VBG pO2 VBG HCO3 VBG O2 Saturation VBG Base Excess Sodium Potassium Chloride Carbon Dioxide Anion Gap BUN Creatinine Estim Creat Clear Calc Estimated GFR POC Glucose 236 H 161 H 204 H Random Glucose Lactic Acid Calcium Phosphorus Magnesium Total Bilirubin Direct Bilirubin AST ALT Alkaline Phosphatase Ammonia C-Reactive Protein Total Protein Albumin Random Vancomycin 08/30/24 08/30/24 08/30/24 03:14 06:26 08:10 WBC 14.5 H RBC 4.84 Hgb 11.1 L Hct 35.5 L MCV 73.3 L MCH 22.9 L MCHC 31.3 RDW 18.4 H Plt Count 261 MPV Not Reportable Immature Gran % (Auto) Neut % (Auto) Lymph % (Auto) [place] % (Auto) Eos % (Auto) Baso % (Auto) Lymph # (Auto) [place] # (Auto) Eos # (Auto) Baso # (Auto) Abs Immat Gran (auto) Absolute Neuts (auto) Absolute Nucleated RBC 0.000 Nucleated RBC % (auto) 0.0 VBG pH VBG pCO2 VBG pO2 VBG HCO3 VBG O2 Saturation VBG Base Excess Sodium 135 Potassium 4.4 Chloride 97 Carbon Dioxide 24 Anion Gap 18 BUN 51 H Creatinine 6.37 H* Estim Creat Clear Calc 10.1 Estimated GFR 9 POC Glucose 167 H 127 H Random Glucose 145 H Lactic Acid Calcium 8.6 Phosphorus Magnesium Total Bilirubin Direct Bilirubin AST ALT Alkaline Phosphatase Ammonia C-Reactive Protein Total Protein Albumin Random Vancomycin Airway Mallampati Class: III TM Dist: >3cm Neck ROM: Limited Loose/Missing/Broken Teeth: Yes, Upper and Lower Heart: RRR Lungs: CTA Assessment and Plan Assessment Anesthesia Assessment: Anesthesia Plan Discussed and Chart Reviewed Final Anesthetic Review Family History of Problems with Anesthesia: No History of Problems with Anesthesia: No NPO: Yes ASA Class: IV Final Preanesthetic Review: Meds/Allgs Chart Reviewed, Consent Obtained/Reviewed and Anes Risks/Benef Reviewed Patient Risk: High Procedure Risk: Low Anesthetic Plan Anesthetic Plan: MAC: and Regional Block Disposition: Standard PACU
--- NOTE | 2024-08-30 11:37 | HO.ANESPROP2 ---
HPI - Anesthesia Eval Consult details Narrative: amputation finger right hand Iand D PMFSH Active Problems Active Problems: All Active Problems Status post amputation of finger of right hand (Acute) 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 (Acute) Encephalopathy (Acute) Necrosis of finger (Acute) Numbness and tingling in right hand (Acute) AKA stump complication (Acute) Cellulitis (Acute) ESRD needing dialysis (Acute) Infection of toe (Acute) Pleural effusion (Acute) Acute hypokalemia (Acute) Osteomyelitis (Acute) Somatization disorder (Acute) Trapped lung (Acute) Recurrent pleural effusion on right (Chronic) Exudative pleural effusion (Acute) Hyponatremia (Acute) Hyperkalemia (Acute) Type 2 diabetes mellitus (Acute) Dry gangrene (Acute) PVD (peripheral vascular disease) (Acute) Postop check (Acute) Acute on chronic systolic and diastolic heart failure, NYHA class 3 (Chronic) Past Medical History Medical History Above knee amputation of right lower extremity Left ventricular systolic dysfunction (LVSD) PVD (peripheral vascular disease) Postop check Acute pericardial effusion Right sided weakness Dehiscence of wound Peripheral arterial disease Dry gangrene Cellulitis of right foot HFrEF (heart failure with reduced ejection fraction) Chronic combined systolic and diastolic CHF (congestive heart failure) Chronic pericardial effusion Arthritis Asthma Restless leg syndrome Acute on chronic systolic and diastolic heart failure, NYHA class 3 Anemia Occlusive thrombus Pulmonary edema ROBERT (obstructive sleep apnea) Type 2 diabetes mellitus Hyperlipidemia Hypertension A-V fistula ESRD on dialysis Falling Family History Family History Father No problems noted. Mother No problems noted. Family history of problems with anesthesia: No Surgical History Surgical History Status post creation of pericardial window Hx of right BKA History of transmetatarsal amputation of foot Status post transmetatarsal amputation of right foot Postop check History of surgery H/O colonoscopy Recurrent pleural effusion Pleural effusion on right (07/13/23) History of Problems with Anesthesia: No Social History Social History Household Members: Family Household Members Other:: son Housing: House Are you a primary spiritual care coordinator to a significant other at home: No Do you presently have visiting nurse or other home services: No Unable to assess alcohol history related to: Unknown Alcohol intake: former Comment: n Patient Tobacco Use Status: Former Tobacco user Tobacco use type: Cigarette Second Hand Smoke Exposure: No Advance Directives Date on File: 10/04/23 service: No Current occupational status: disabled 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 Meds Allergies Allergy/AdvReac Type Severity Reaction Status Date / Time Iodinated Contrast Media Allergy Severe Facial Verified 08/22/24 11:22 (Contrast Dye) Swelling hydralazine AdvReac Severe vasculitis Verified 08/22/24 11:22 Active Medications: Current Medications Acetaminophen (Acetaminophen 325 Mg Tablet) 650 mg PO Q6H PRN PRN Reason: Pain, Mild 1-3,fever,headache Last Admin: 08/25/24 12:20 Dose: 650 mg Albuterol Sulfate (Albuterol Sulfate 90 Mcg 8 Gm Inhaler) 2 puff INHALE Q4H PRN PRN Reason: Wheezing Allopurinol (Allopurinol 100 Mg Tablet) 100 mg PO MOWEFR@1600 [facility] Last Admin: 08/28/24 17:58 Dose: 100 mg Amlodipine Besylate (Amlodipine Besylate 10 Mg Tablet) 10 mg PO DAILY [facility]; Protocol Last Admin: 08/29/24 09:04 Dose: 10 mg Aspirin (Aspirin Enteric Coated 81 Mg Tablet.) 81 mg PO MOWEFR@1600 [facility] Last Admin: 08/28/24 17:57 Dose: 81 mg Aspirin (Aspirin Enteric Coated 81 Mg Tablet.) 81 mg PO SUTUTHSA@0900 [facility] Last Admin: 08/29/24 09:05 Dose: 81 mg Atorvastatin Calcium (Atorvastatin Calcium 40 Mg Tablet) 40 mg PO MOWEFR@1600 [facility] Last Admin: 08/28/24 17:58 Dose: 40 mg Atorvastatin Calcium (Atorvastatin Calcium 40 Mg Tablet) 40 mg PO SUTUTHSA@0900 [facility] Last Admin: 08/29/24 09:06 Dose: 40 mg Calcium Carbonate (Calcium Carbonate 750 Mg Tab.Chew) 750 mg PO Q4H PRN PRN Reason: Heartburn Carvedilol (Carvedilol 12.5 Mg Tablet) 12.5 mg PO BID [facility]; Protocol Last Admin: 08/29/24 20:48 Dose: 12.5 mg Dextrose (Dextrose 50 % 25 Gm/50 Ml Syringe) 25 gm IVPUSH Q15M PRN; Protocol PRN Reason: per Hypoglycemia Standing Ord. Last Admin: 08/27/24 07:59 Dose: 25 gm Docusate Sodium (Docusate Sodium 100 Mg Capsule) 100 mg PO DAILY [facility] Last Admin: 08/29/24 09:04 Dose: 100 mg Doxazosin Mesylate (Doxazosin Mesylate 2 Mg Tablet) 4 mg PO BEDTIME [facility]; Protocol Last Admin: 08/29/24 20:47 Dose: 4 mg Fluticasone/Umeclidinium/Vilanterol (Fluticasone/Umeclidinium/Vilanterol 100/62.5/ Blst.W.Dev) 1 puff INHALE RDAILY [facility] Last Admin: 08/30/24 08:22 Dose: 1 puff Furosemide (Furosemide 40 Mg Tablet) 80 mg PO MOWEFR@1600 [facility]; Protocol Last Admin: 08/28/24 17:57 Dose: 80 mg Furosemide (Furosemide 40 Mg Tablet) 80 mg PO SUTUTHSA@0900 [facility]; Protocol Last Admin: 08/29/24 09:05 Dose: 80 mg Glucose (Glucose Gel 15 Gm Gel..Gram.) 15 gm PO Q15M PRN PRN Reason: per Hypoglycemia Standing Ord. Last Admin: 08/25/24 04:50 Dose: 15 gm Heparin Sodium (Porcine) (Heparin Sodium,Porcine 5,000 Unit/Ml Vial) 5,000 unit SUBCUT Q12H [facility] On Hold: 08/30/24 00:00 Last Admin: 08/29/24 21:04 Dose: 5,000 unit Vancomycin HCl 500 mg/ Sodium (Chloride) 110 mls @ 110 mls/hr IV ONCE ONE Stop: 08/23/24 20:59 Levetiracetam (Keppra) 1,000 mg in 100 mls @ 400 mls/hr IV Q12H [facility] Last Infusion: 08/29/24 21:05 Dose: Infused Insulin Glargine (Insulin Glargine,Hum.Rec.Anlog 100 Unit/Ml 10 Ml Vial) 10 unit SUBCUT BEDTIME [facility] On Hold: 08/28/24 21:00 Insulin Human Lispro (Insulin Lispro 100 Unit/Ml 3 Ml Vial) 0 unit SUBCUT QIDACHS [facility]; Protocol Last Admin: 08/30/24 08:14 Dose: Not Given Losartan Potassium (Losartan Potassium 25 Mg Tablet) 25 mg PO MOWEFR@1600 [facility]; Protocol Last Admin: 08/28/24 17:57 Dose: 25 mg Losartan Potassium (Losartan Potassium 25 Mg Tablet) 25 mg PO SUTUTHSA@0900 [facility]; Protocol Last Admin: 08/29/24 09:05 Dose: 25 mg Magnesium Hydroxide (Milk Of Magnesia 30 Ml Oral.Susp) 30 ml PO DAILY PRN PRN Reason: Constipation Melatonin (Melatonin 3 Mg Tablet) 6 mg PO BEDTIME PRN PRN Reason: Insomnia Last Admin: 08/28/24 22:00 Dose: 6 mg Naloxone HCl (Naloxone Hcl 0.4 Mg/Ml Vial) 0.04 mg IVPUSH Q5M PRN PRN Reason: Excessive sedation or RR < 8 Omeprazole (Omeprazole 20 Mg Capsule.Dr) 20 mg PO DAILY@06 [facility] Last Admin: 08/30/24 06:15 Dose: Not Given Ondansetron HCl (Ondansetron Hcl 4 Mg/2 Ml Vial) 4 mg IVPUSH Q8H PRN PRN Reason: Nausea and Vomiting Oxycodone HCl (Oxycodone Hcl Immed Release 5 Mg Tablet) 5 mg PO Q6H PRN PRN Reason: Pain, Severe (Pain Scale 7-10) Last Admin: 08/30/24 09:32 Dose: 5 mg Pharmacy Consult (Consult Rx Vancomycin Dosing) 1 each MISCELLANE DAILY PRN PRN Reason: Consult order Pregabalin (Pregabalin 75 Mg Capsule) 75 mg PO DAILY [facility] Last Admin: 08/29/24 09:04 Dose: 75 mg Sevelamer Carbonate (Sevelamer Carbonate Tablet 800 Mg Tablet) 800 mg PO TIDWM [facility] Last Admin: 08/30/24 09:14 Dose: Not Given Sodium Chloride (0.9 % Sodium Chloride Flush 3 Ml Syringe) 3 ml IVFLUSH [facility] Last Admin: 08/30/24 09:14 Dose: Not Given Home Medications ?Medication ?Instructions ?Recorded ?Confirmed ?Last Taken ?Type allopurinol 100 mg tablet 100 mg PO MOWEFR@1600 04/19/22 08/22/24 08/21/24 History atorvastatin 40 mg tablet 40 mg PO SUTUTHSA@0900 02/14/23 06/19/25 06/18/25 History doxazosin 4 mg tablet 4 mg PO BEDTIME 04/19/22 08/22/24 08/21/24 History furosemide 80 mg tablet 80 mg PO SUTUTHSA@0900 04/19/22 08/22/24 08/21/24 History omeprazole 20 mg capsule,delayed 20 mg PO DAILY@0630 04/19/22 08/22/24 08/21/24 History release aspirin 81 mg tablet,delayed 81 mg PO SUTUTHSA@0906/20/23 08/22/24 08/21/24 History release pregabalin 75 mg capsule 75 mg PO DAILY 06/20/23 08/22/24 08/21/24 History aspirin 81 mg tablet,delayed 81 mg PO MOWEFR@1600 04/05/24 08/22/24 08/21/24 History release atorvastatin 40 mg tablet 40 mg PO MOWEFR@1600 04/05/24 08/22/24 08/21/24 History fluticasone fur. 100 mcg-umeclid 1 inh inhalation DAILY 04/05/24 08/22/24 08/21/24 History 62.5 mcg-vilant 25 mcg inhalat.powder (Trelegy Ellipta) furosemide 80 mg tablet 80 mg PO MOWEFR@1600 04/05/24 08/22/24 08/21/24 History losartan 25 mg tablet 25 mg PO MOWEFR@1600 04/05/24 08/22/24 08/21/24 History losartan 25 mg tablet 25 mg PO SUTUTHSA@0904/05/24 08/22/24 08/21/24 History insulin glargine 100 unit/mL (3 22 unit subcut BEDTIME 05/01/24 08/22/24 08/21/24 History mL) subcutaneous pen (Lantus Solostar U-100 Insulin) acetaminophen 500 mg tablet 1,000 mg PO Q8H PRN Pain 05/26/24 08/22/24 Unknown History amlodipine 10 mg tablet 10 mg PO DAILY 05/26/24 08/22/24 08/21/24 History calcium carbonate (Calcium 500) 500 mg PO TID 05/26/24 08/22/24 08/21/24 History docusate sodium 100 mg capsule 100 mg PO DAILY 05/26/24 08/22/24 08/21/24 History insulin lispro 100 unit/mL See Rx Instructions .Route .COMPLEX 05/26/24 08/22/24 08/21/24 History subcutaneous solution (Humalog U-100 Insulin) albuterol sulfate 90 mcg/actuation 2 puff inhalation Q4H PRN wheezing 08/22/24 08/22/24 Unknown History aerosol inhaler (Ventolin HFA) carvedilol 6.25 mg tablet 6.25 mg PO BID 08/22/24 08/22/24 Unknown History ipratropium 0.5 mg-albuterol 3 mg 3 ml inhalation QID PRN Shortness 08/22/24 08/22/24 08/21/24 History (2.5 mg base)/3 mL nebulization Of Breath soln sucroferric oxyhydroxide 500 mg 500 mg PO TID 08/22/24 08/22/24 08/21/24 History chewable tablet (Velphoro) Exam Height,Weight and Vital Signs: Height 5 ft 4 in Weight 72.2 kg Last Vital Signs Temp 98.2 F 08/30/24 11:03 Pulse 67 08/30/24 11:03 Resp 17 08/30/24 11:03 BP 173/70 H 08/30/24 11:03 Pulse Ox 97 08/30/24 11:03 O2 Del Method Nasal Cannula 08/30/24 11:03 O2 Flow Rate 2 08/30/24 11:03 Pertinent Lab Results Pertinent Lab Results: Laboratory Tests 08/22/24 08/22/24 08/22/24 11:41 14:20 16:08 WBC 16.3 H RBC 4.98 D Hgb 11.4 L Hct 37.1 L MCV 74.5 L MCH 22.9 L MCHC 30.7 L RDW 19.9 H Plt Count 194 MPV Not Reportable Immature Gran % (Auto) 0.4 Neut % (Auto) 86.4 H Lymph % (Auto) 7.2 L [place] % (Auto) 5.5 Eos % (Auto) 0.3 Baso % (Auto) 0.2 Lymph # (Auto) 1.2 [place] # (Auto) 0.9 Eos # (Auto) 0.1 Baso # (Auto) 0.0 Abs Immat Gran (auto) 0.07 H Absolute Neuts (auto) 14.1 H Absolute Nucleated RBC 0.030 H Nucleated RBC % (auto) 0.2 VBG pH VBG pCO2 VBG pO2 VBG HCO3 VBG O2 Saturation VBG Base Excess Sodium 137 Potassium 5.0 Chloride 96 Carbon Dioxide 27 Anion Gap 19 BUN 54 H Creatinine 6.03 H* Estim Creat Clear Calc 10.8 Estimated GFR 9 POC Glucose 381 H* Random Glucose 392 H* Lactic Acid 1.6 Calcium 8.6 Phosphorus Magnesium 1.6 Total Bilirubin 0.5 Direct Bilirubin AST 23 ALT 24 Alkaline Phosphatase 159 H Ammonia C-Reactive Protein 16.41 H Total Protein 7.1 Albumin 3.5 Random Vancomycin 08/22/24 08/22/24 08/22/24 17:11 18:49 21:05 WBC RBC Hgb Hct MCV MCH MCHC RDW Plt Count MPV Immature Gran % (Auto) Neut % (Auto) Lymph % (Auto) [place] % (Auto) Eos % (Auto) Baso % (Auto) Lymph # (Auto) [place] # (Auto) Eos # (Auto) Baso # (Auto) Abs Immat Gran (auto) Absolute Neuts (auto) Absolute Nucleated RBC Nucleated RBC % (auto) VBG pH VBG pCO2 VBG pO2 VBG HCO3 VBG O2 Saturation VBG Base Excess Sodium Potassium Chloride Carbon Dioxide Anion Gap BUN Creatinine Estim Creat Clear Calc Estimated GFR POC Glucose 405 H* 179 H 82 Random Glucose Lactic Acid Calcium Phosphorus Magnesium Total Bilirubin Direct Bilirubin AST ALT Alkaline Phosphatase Ammonia C-Reactive Protein Total Protein Albumin Random Vancomycin 08/23/24 08/23/24 08/23/24 02:46 06:33 06:55 WBC 15.8 H RBC 4.77 Hgb 11.0 L Hct 35.1 L MCV 73.6 L MCH 23.1 L MCHC 31.3 RDW 19.4 H Plt Count 183 MPV Not Reportable Immature Gran % (Auto) Neut % (Auto) Lymph % (Auto) [place] % (Auto) Eos % (Auto) Baso % (Auto) Lymph # (Auto) [place] # (Auto) Eos # (Auto) Baso # (Auto) Abs Immat Gran (auto) Absolute Neuts (auto) Absolute Nucleated RBC 0.020 H Nucleated RBC % (auto) 0.1 VBG pH VBG pCO2 VBG pO2 VBG HCO3 VBG O2 Saturation VBG Base Excess Sodium Potassium Chloride Carbon Dioxide Anion Gap BUN Creatinine Estim Creat Clear Calc Estimated GFR POC Glucose 184 H 192 H Random Glucose Lactic Acid Calcium Phosphorus Magnesium Total Bilirubin Direct Bilirubin AST ALT Alkaline Phosphatase Ammonia C-Reactive Protein Total Protein Albumin Random Vancomycin 08/23/24 08/23/24 08/23/24 10:48 11:49 16:05 WBC RBC Hgb Hct MCV MCH MCHC RDW Plt Count MPV Immature Gran % (Auto) Neut % (Auto) Lymph % (Auto) [place] % (Auto) Eos % (Auto) Baso % (Auto) Lymph # (Auto) [place] # (Auto) Eos # (Auto) Baso # (Auto) Abs Immat Gran (auto) Absolute Neuts (auto) Absolute Nucleated RBC Nucleated RBC % (auto) VBG pH VBG pCO2 VBG pO2 VBG HCO3 VBG O2 Saturation VBG Base Excess Sodium 136 Potassium 5.6 H Chloride 95 L Carbon Dioxide 25 Anion Gap 22 H BUN 70 H Creatinine 7.76 H* Estim Creat Clear Calc 8.2 Estimated GFR 7 POC Glucose 174 H 190 H Random Glucose 183 H Lactic Acid Calcium 8.6 Phosphorus 7.7 H Magnesium Total Bilirubin Direct Bilirubin AST ALT Alkaline Phosphatase Ammonia C-Reactive Protein Total Protein Albumin Random Vancomycin 08/23/24 08/24/24 08/24/24 20:34 06:33 10:09 WBC 15.9 H RBC 4.59 L Hgb 10.5 L Hct 33.8 L MCV 73.6 L MCH 22.9 L MCHC 31.1 RDW 19.4 H Plt Count 180 MPV Not Reportable Immature Gran % (Auto) 0.5 H Neut % (Auto) 85.0 H Lymph % (Auto) 5.2 L [place] % (Auto) 7.3 Eos % (Auto) 1.8 Baso % (Auto) 0.2 Lymph # (Auto) 0.8 L [place] # (Auto) 1.2 Eos # (Auto) 0.3 Baso # (Auto) 0.0 Abs Immat Gran (auto) 0.08 H Absolute Neuts (auto) 13.5 H Absolute Nucleated RBC 0.030 H Nucleated RBC % (auto) 0.2 VBG pH VBG pCO2 VBG pO2 VBG HCO3 VBG O2 Saturation VBG Base Excess Sodium 138 Potassium 4.5 Chloride 97 Carbon Dioxide 27 Anion Gap 19 BUN 56 H Creatinine 6.06 H* Estim Creat Clear Calc 10.6 Estimated GFR 9 POC Glucose 200 H 50 L* Random Glucose 84 Lactic Acid Calcium 8.6 Phosphorus Magnesium Total Bilirubin Direct Bilirubin AST ALT Alkaline Phosphatase Ammonia C-Reactive Protein Total Protein Albumin Random Vancomycin 08/24/24 08/24/24 08/24/24 10:37 10:47 10:58 WBC RBC Hgb Hct MCV MCH MCHC RDW Plt Count MPV Immature Gran % (Auto) Neut % (Auto) Lymph % (Auto) [place] % (Auto) Eos % (Auto) Baso % (Auto) Lymph # (Auto) [place] # (Auto) Eos # (Auto) Baso # (Auto) Abs Immat Gran (auto) Absolute Neuts (auto) Absolute Nucleated RBC Nucleated RBC % (auto) VBG pH VBG pCO2 VBG pO2 VBG HCO3 VBG O2 Saturation VBG Base Excess Sodium Potassium Chloride Carbon Dioxide Anion Gap BUN Creatinine Estim Creat Clear Calc Estimated GFR POC Glucose 88 101 Random Glucose Lactic Acid Calcium Phosphorus Magnesium Total Bilirubin Direct Bilirubin AST ALT Alkaline Phosphatase Ammonia C-Reactive Protein Total Protein Albumin Random Vancomycin 16.7 08/24/24 08/24/24 08/24/24 11:38 11:47 15:12 WBC RBC Hgb Hct MCV MCH MCHC RDW Plt Count MPV Immature Gran % (Auto) Neut % (Auto) Lymph % (Auto) [place] % (Auto) Eos % (Auto) Baso % (Auto) Lymph # (Auto) [place] # (Auto) Eos # (Auto) Baso # (Auto) Abs Immat Gran (auto) Absolute Neuts (auto) Absolute Nucleated RBC Nucleated RBC % (auto) VBG pH 7.38 VBG pCO2 60 VBG pO2 58 VBG HCO3 36 H VBG O2 Saturation 83.0 VBG Base Excess 9.0 Sodium 140 Potassium 4.1 Chloride 97 Carbon Dioxide 30 H Anion Gap 17 BUN 35 H Creatinine 4.61 H* Estim Creat Clear Calc 13.9 Estimated GFR 13 POC Glucose 63 Random Glucose 101 Lactic Acid Calcium 9.0 Phosphorus Magnesium Total Bilirubin 0.5 Direct Bilirubin 0.3 AST 18 ALT 19 Alkaline Phosphatase 143 H Ammonia 32 C-Reactive Protein Total Protein 7.0 Albumin 3.4 L Random Vancomycin 08/24/24 08/24/24 08/24/24 15:31 15:54 20:26 WBC RBC Hgb Hct MCV MCH MCHC RDW Plt Count MPV Immature Gran % (Auto) Neut % (Auto) Lymph % (Auto) [place] % (Auto) Eos % (Auto) Baso % (Auto) Lymph # (Auto) [place] # (Auto) Eos # (Auto) Baso # (Auto) Abs Immat Gran (auto) Absolute Neuts (auto) Absolute Nucleated RBC Nucleated RBC % (auto) VBG pH VBG pCO2 VBG pO2 VBG HCO3 VBG O2 Saturation VBG Base Excess Sodium Potassium Chloride Carbon Dioxide Anion Gap BUN Creatinine Estim Creat Clear Calc Estimated GFR POC Glucose 59 L* 85 100 Random Glucose Lactic Acid Calcium Phosphorus Magnesium Total Bilirubin Direct Bilirubin AST ALT Alkaline Phosphatase Ammonia C-Reactive Protein Total Protein Albumin Random Vancomycin 08/25/24 08/25/24 08/25/24 01:09 04:20 06:00 WBC RBC Hgb Hct MCV MCH MCHC RDW Plt Count MPV Immature Gran % (Auto) Neut % (Auto) Lymph % (Auto) [place] % (Auto) Eos % (Auto) Baso % (Auto) Lymph # (Auto) [place] # (Auto) Eos # (Auto) Baso # (Auto) Abs Immat Gran (auto) Absolute Neuts (auto) Absolute Nucleated RBC Nucleated RBC % (auto) VBG pH VBG pCO2 VBG pO2 VBG HCO3 VBG O2 Saturation VBG Base Excess Sodium Potassium Chloride Carbon Dioxide Anion Gap BUN Creatinine Estim Creat Clear Calc Estimated GFR POC Glucose 69 58 L* 102 Random Glucose Lactic Acid Calcium Phosphorus Magnesium Total Bilirubin Direct Bilirubin AST ALT Alkaline Phosphatase Ammonia C-Reactive Protein Total Protein Albumin Random Vancomycin 08/25/24 08/25/24 08/25/24 07:11 07:15 07:40 WBC 13.7 H RBC 4.57 L Hgb 10.6 L Hct 34.0 L MCV 74.4 L MCH 23.2 L MCHC 31.2 RDW 19.3 H Plt Count 164 MPV TNP Immature Gran % (Auto) 0.8 H Neut % (Auto) 81.0 H Lymph % (Auto) 8.6 L [place] % (Auto) 8.4 Eos % (Auto) 1.1 Baso % (Auto) 0.1 Lymph # (Auto) 1.2 [place] # (Auto) 1.2 Eos # (Auto) 0.2 Baso # (Auto) 0.0 Abs Immat Gran (auto) 0.11 H Absolute Neuts (auto) 11.1 H Absolute Nucleated RBC 0.030 H Nucleated RBC % (auto) 0.2 VBG pH 7.43 VBG pCO2 47 VBG pO2 64 VBG HCO3 31 H VBG O2 Saturation 88.0 VBG Base Excess 6.3 Sodium 134 L Potassium 5.3 H D Chloride 94 L Carbon Dioxide 27 Anion Gap 18 BUN 49 H Creatinine 5.96 H* Estim Creat Clear Calc 10.8 Estimated GFR 9 POC Glucose 95 Random Glucose 90 Lactic Acid Calcium 8.8 Phosphorus Magnesium Total Bilirubin Direct Bilirubin AST ALT Alkaline Phosphatase Ammonia C-Reactive Protein Total Protein Albumin Random Vancomycin 08/25/24 08/25/24 08/25/24 10:25 13:44 16:31 WBC RBC Hgb Hct MCV MCH MCHC RDW Plt Count MPV Immature Gran % (Auto) Neut % (Auto) Lymph % (Auto) [place] % (Auto) Eos % (Auto) Baso % (Auto) Lymph # (Auto) [place] # (Auto) Eos # (Auto) Baso # (Auto) Abs Immat Gran (auto) Absolute Neuts (auto) Absolute Nucleated RBC Nucleated RBC % (auto) VBG pH VBG pCO2 VBG pO2 VBG HCO3 VBG O2 Saturation VBG Base Excess Sodium Potassium Chloride Carbon Dioxide Anion Gap BUN Creatinine Estim Creat Clear Calc Estimated GFR POC Glucose 180 H 168 H 165 H Random Glucose Lactic Acid Calcium Phosphorus Magnesium Total Bilirubin Direct Bilirubin AST ALT Alkaline Phosphatase Ammonia C-Reactive Protein Total Protein Albumin Random Vancomycin 08/25/24 08/26/24 08/26/24 19:56 01:18 04:41 WBC RBC Hgb Hct MCV MCH MCHC RDW Plt Count MPV Immature Gran % (Auto) Neut % (Auto) Lymph % (Auto) [place] % (Auto) Eos % (Auto) Baso % (Auto) Lymph # (Auto) [place] # (Auto) Eos # (Auto) Baso # (Auto) Abs Immat Gran (auto) Absolute Neuts (auto) Absolute Nucleated RBC Nucleated RBC % (auto) VBG pH VBG pCO2 VBG pO2 VBG HCO3 VBG O2 Saturation VBG Base Excess Sodium Potassium Chloride Carbon Dioxide Anion Gap BUN Creatinine Estim Creat Clear Calc Estimated GFR POC Glucose 134 H 114 88 Random Glucose Lactic Acid Calcium Phosphorus Magnesium Total Bilirubin Direct Bilirubin AST ALT Alkaline Phosphatase Ammonia C-Reactive Protein Total Protein Albumin Random Vancomycin 08/26/24 08/26/24 08/26/24 07:00 08:49 10:06 WBC 16.4 H RBC 4.62 Hgb 10.7 L Hct 33.6 L MCV 72.7 L MCH 23.2 L MCHC 31.8 RDW 18.8 H Plt Count 178 MPV Not Reportable Immature Gran % (Auto) 0.7 H Neut % (Auto) 82.8 H Lymph % (Auto) 6.7 L [place] % (Auto) 8.6 Eos % (Auto) 1.0 Baso % (Auto) 0.2 Lymph # (Auto) 1.1 L [place] # (Auto) 1.4 H Eos # (Auto) 0.2 Baso # (Auto) 0.0 Abs Immat Gran (auto) 0.12 H Absolute Neuts (auto) 13.5 H Absolute Nucleated RBC 0.000 Nucleated RBC % (auto) 0.0 VBG pH VBG pCO2 VBG pO2 VBG HCO3 VBG O2 Saturation VBG Base Excess Sodium 132 L Potassium 6.1 H* Chloride 91 L Carbon Dioxide 24 Anion Gap 23 H BUN 64 H Creatinine 7.92 H* Estim Creat Clear Calc 8.1 Estimated GFR 7 POC Glucose 80 97 Random Glucose 66 Lactic Acid Calcium 8.9 Phosphorus 8.9 H Magnesium Total Bilirubin Direct Bilirubin AST ALT Alkaline Phosphatase Ammonia C-Reactive Protein Total Protein Albumin Random Vancomycin 08/26/24 08/26/24 08/26/24 15:25 16:57 19:16 WBC RBC Hgb Hct MCV MCH MCHC RDW Plt Count MPV Immature Gran % (Auto) Neut % (Auto) Lymph % (Auto) [place] % (Auto) Eos % (Auto) Baso % (Auto) Lymph # (Auto) [place] # (Auto) Eos # (Auto) Baso # (Auto) Abs Immat Gran (auto) Absolute Neuts (auto) Absolute Nucleated RBC Nucleated RBC % (auto) VBG pH VBG pCO2 VBG pO2 VBG HCO3 VBG O2 Saturation VBG Base Excess Sodium Potassium Chloride Carbon Dioxide Anion Gap BUN Creatinine Estim Creat Clear Calc Estimated GFR POC Glucose 127 H 131 H Random Glucose Lactic Acid Calcium Phosphorus Magnesium Total Bilirubin Direct Bilirubin AST ALT Alkaline Phosphatase Ammonia C-Reactive Protein Total Protein Albumin Random Vancomycin 12.3 L 08/26/24 08/26/24 08/27/24 20:07 22:56 01:20 WBC RBC Hgb Hct MCV MCH MCHC RDW Plt Count MPV Immature Gran % (Auto) Neut % (Auto) Lymph % (Auto) [place] % (Auto) Eos % (Auto) Baso % (Auto) Lymph # (Auto) [place] # (Auto) Eos # (Auto) Baso # (Auto) Abs Immat Gran (auto) Absolute Neuts (auto) Absolute Nucleated RBC Nucleated RBC % (auto) VBG pH 7.41 VBG pCO2 51 VBG pO2 73 VBG HCO3 33 H VBG O2 Saturation 92.0 VBG Base Excess 7.1 Sodium Potassium Chloride Carbon Dioxide Anion Gap BUN Creatinine Estim Creat Clear Calc Estimated GFR POC Glucose 121 H 95 Random Glucose Lactic Acid Calcium Phosphorus Magnesium Total Bilirubin Direct Bilirubin AST ALT Alkaline Phosphatase Ammonia C-Reactive Protein Total Protein Albumin Random Vancomycin 08/27/24 08/27/24 08/27/24 03:11 06:07 07:02 WBC 14.6 H RBC 4.55 L Hgb 10.4 L Hct 33.1 L MCV 72.7 L MCH 22.9 L MCHC 31.4 RDW 18.8 H Plt Count 189 MPV Not Reportable Immature Gran % (Auto) Neut % (Auto) Lymph % (Auto) [place] % (Auto) Eos % (Auto) Baso % (Auto) Lymph # (Auto) [place] # (Auto) Eos # (Auto) Baso # (Auto) Abs Immat Gran (auto) Absolute Neuts (auto) Absolute Nucleated RBC 0.000 Nucleated RBC % (auto) 0.0 VBG pH VBG pCO2 VBG pO2 VBG HCO3 VBG O2 Saturation VBG Base Excess Sodium 136 Potassium 4.5 D Chloride 96 Carbon Dioxide 25 Anion Gap 20 BUN 37 H Creatinine 5.19 H* Estim Creat Clear Calc 12.4 Estimated GFR 11 POC Glucose 90 75 Random Glucose 76 Lactic Acid Calcium 9.2 Phosphorus Magnesium Total Bilirubin Direct Bilirubin AST ALT Alkaline Phosphatase Ammonia C-Reactive Protein Total Protein Albumin Random Vancomycin 08/27/24 08/27/24 08/27/24 08:36 12:31 16:15 WBC RBC Hgb Hct MCV MCH MCHC RDW Plt Count MPV Immature Gran % (Auto) Neut % (Auto) Lymph % (Auto) [place] % (Auto) Eos % (Auto) Baso % (Auto) Lymph # (Auto) [place] # (Auto) Eos # (Auto) Baso # (Auto) Abs Immat Gran (auto) Absolute Neuts (auto) Absolute Nucleated RBC Nucleated RBC % (auto) VBG pH VBG pCO2 VBG pO2 VBG HCO3 VBG O2 Saturation VBG Base Excess Sodium Potassium Chloride Carbon Dioxide Anion Gap BUN Creatinine Estim Creat Clear Calc Estimated GFR POC Glucose 166 H 101 118 H Random Glucose Lactic Acid Calcium Phosphorus Magnesium Total Bilirubin Direct Bilirubin AST ALT Alkaline Phosphatase Ammonia C-Reactive Protein Total Protein Albumin Random Vancomycin 08/27/24 08/27/24 08/28/24 19:41 20:57 01:19 WBC RBC Hgb Hct MCV MCH MCHC RDW Plt Count MPV Immature Gran % (Auto) Neut % (Auto) Lymph % (Auto) [place] % (Auto) Eos % (Auto) Baso % (Auto) Lymph # (Auto) [place] # (Auto) Eos # (Auto) Baso # (Auto) Abs Immat Gran (auto) Absolute Neuts (auto) Absolute Nucleated RBC Nucleated RBC % (auto) VBG pH VBG pCO2 VBG pO2 VBG HCO3 VBG O2 Saturation VBG Base Excess Sodium Potassium Chloride Carbon Dioxide Anion Gap BUN Creatinine Estim Creat Clear Calc Estimated GFR POC Glucose 224 H 222 H 278 H Random Glucose Lactic Acid Calcium Phosphorus Magnesium Total Bilirubin Direct Bilirubin AST ALT Alkaline Phosphatase Ammonia C-Reactive Protein Total Protein Albumin Random Vancomycin 08/28/24 08/28/24 08/28/24 01:39 04:28 07:05 WBC 15.0 H RBC 4.59 L Hgb 10.5 L Hct 33.8 L MCV 73.6 L MCH 22.9 L MCHC 31.1 RDW 18.8 H Plt Count 218 MPV Not Reportable Immature Gran % (Auto) Neut % (Auto) Lymph % (Auto) [place] % (Auto) Eos % (Auto) Baso % (Auto) Lymph # (Auto) [place] # (Auto) Eos # (Auto) Baso # (Auto) Abs Immat Gran (auto) Absolute Neuts (auto) Absolute Nucleated RBC 0.000 Nucleated RBC % (auto) 0.0 VBG pH VBG pCO2 VBG pO2 VBG HCO3 VBG O2 Saturation VBG Base Excess Sodium 137 Potassium 5.0 Chloride 97 Carbon Dioxide 23 Anion Gap 22 H BUN 56 H Creatinine 7.02 H* Estim Creat Clear Calc 9.1 Estimated GFR 8 POC Glucose 267 H 209 H Random Glucose 243 H Lactic Acid Calcium 8.9 Phosphorus 10.4 H Magnesium Total Bilirubin Direct Bilirubin AST ALT Alkaline Phosphatase Ammonia C-Reactive Protein Total Protein Albumin Random Vancomycin 08/28/24 08/28/24 08/28/24 07:29 11:23 16:15 WBC RBC Hgb Hct MCV MCH MCHC RDW Plt Count MPV Immature Gran % (Auto) Neut % (Auto) Lymph % (Auto) [place] % (Auto) Eos % (Auto) Baso % (Auto) Lymph # (Auto) [place] # (Auto) Eos # (Auto) Baso # (Auto) Abs Immat Gran (auto) Absolute Neuts (auto) Absolute Nucleated RBC Nucleated RBC % (auto) VBG pH VBG pCO2 VBG pO2 VBG HCO3 VBG O2 Saturation VBG Base Excess Sodium Potassium Chloride Carbon Dioxide Anion Gap BUN Creatinine Estim Creat Clear Calc Estimated GFR POC Glucose 230 H 224 H 170 H Random Glucose Lactic Acid Calcium Phosphorus Magnesium Total Bilirubin Direct Bilirubin AST ALT Alkaline Phosphatase Ammonia C-Reactive Protein Total Protein Albumin Random Vancomycin 08/28/24 08/28/24 08/28/24 18:16 20:08 23:34 WBC RBC Hgb Hct MCV MCH MCHC RDW Plt Count MPV Immature Gran % (Auto) Neut % (Auto) Lymph % (Auto) [place] % (Auto) Eos % (Auto) Baso % (Auto) Lymph # (Auto) [place] # (Auto) Eos # (Auto) Baso # (Auto) Abs Immat Gran (auto) Absolute Neuts (auto) Absolute Nucleated RBC Nucleated RBC % (auto) VBG pH VBG pCO2 VBG pO2 VBG HCO3 VBG O2 Saturation VBG Base Excess Sodium Potassium Chloride Carbon Dioxide Anion Gap BUN Creatinine Estim Creat Clear Calc Estimated GFR POC Glucose 268 H 181 H Random Glucose Lactic Acid Calcium Phosphorus Magnesium Total Bilirubin Direct Bilirubin AST ALT Alkaline Phosphatase Ammonia C-Reactive Protein Total Protein Albumin Random Vancomycin 12.7 L 08/29/24 08/29/24 08/29/24 03:37 06:17 07:22 WBC 13.7 H RBC 4.64 Hgb 10.4 L Hct 34.3 L MCV 73.9 L MCH 22.4 L MCHC 30.3 L RDW 18.8 H Plt Count 241 MPV Not Reportable Immature Gran % (Auto) Neut % (Auto) Lymph % (Auto) [place] % (Auto) Eos % (Auto) Baso % (Auto) Lymph # (Auto) [place] # (Auto) Eos # (Auto) Baso # (Auto) Abs Immat Gran (auto) Absolute Neuts (auto) Absolute Nucleated RBC 0.000 Nucleated RBC % (auto) 0.0 VBG pH VBG pCO2 VBG pO2 VBG HCO3 VBG O2 Saturation VBG Base Excess Sodium 138 Potassium 4.3 Chloride 99 Carbon Dioxide 24 Anion Gap 19 BUN 35 H Creatinine 4.94 H* Estim Creat Clear Calc 13.0 Estimated GFR 12 POC Glucose 186 H 137 H Random Glucose 152 H Lactic Acid Calcium 8.8 Phosphorus Magnesium Total Bilirubin Direct Bilirubin AST ALT Alkaline Phosphatase Ammonia C-Reactive Protein Total Protein Albumin Random Vancomycin 08/29/24 08/29/24 08/29/24 11:56 15:31 19:46 WBC RBC Hgb Hct MCV MCH MCHC RDW Plt Count MPV Immature Gran % (Auto) Neut % (Auto) Lymph % (Auto) [place] % (Auto) Eos % (Auto) Baso % (Auto) Lymph # (Auto) [place] # (Auto) Eos # (Auto) Baso # (Auto) Abs Immat Gran (auto) Absolute Neuts (auto) Absolute Nucleated RBC Nucleated RBC % (auto) VBG pH VBG pCO2 VBG pO2 VBG HCO3 VBG O2 Saturation VBG Base Excess Sodium Potassium Chloride Carbon Dioxide Anion Gap BUN Creatinine Estim Creat Clear Calc Estimated GFR POC Glucose 236 H 161 H 204 H Random Glucose Lactic Acid Calcium Phosphorus Magnesium Total Bilirubin Direct Bilirubin AST ALT Alkaline Phosphatase Ammonia C-Reactive Protein Total Protein Albumin Random Vancomycin 08/30/24 08/30/24 08/30/24 03:14 06:26 08:10 WBC 14.5 H RBC 4.84 Hgb 11.1 L Hct 35.5 L MCV 73.3 L MCH 22.9 L MCHC 31.3 RDW 18.4 H Plt Count 261 MPV Not Reportable Immature Gran % (Auto) Neut % (Auto) Lymph % (Auto) [place] % (Auto) Eos % (Auto) Baso % (Auto) Lymph # (Auto) [place] # (Auto) Eos # (Auto) Baso # (Auto) Abs Immat Gran (auto) Absolute Neuts (auto) Absolute Nucleated RBC 0.000 Nucleated RBC % (auto) 0.0 VBG pH VBG pCO2 VBG pO2 VBG HCO3 VBG O2 Saturation VBG Base Excess Sodium 135 Potassium 4.4 Chloride 97 Carbon Dioxide 24 Anion Gap 18 BUN 51 H Creatinine 6.37 H* Estim Creat Clear Calc 10.1 Estimated GFR 9 POC Glucose 167 H 127 H Random Glucose 145 H Lactic Acid Calcium 8.6 Phosphorus Magnesium Total Bilirubin Direct Bilirubin AST ALT Alkaline Phosphatase Ammonia C-Reactive Protein Total Protein Albumin Random Vancomycin Airway Mallampati Class: III TM Dist: <=3cm Neck ROM: Limited Heart: rrr Lungs: cta Assessment and Plan Assessment Anesthesia Assessment: Anesthesia Plan Discussed and Chart Reviewed Final Anesthetic Review Family History of Problems with Anesthesia: No History of Problems with Anesthesia: No NPO: Yes ASA Class: IV Final Preanesthetic Review: No Changes in Pt Med Stat, Meds/Allgs Chart Reviewed, Consent Obtained/Reviewed and Anes Risks/Benef Reviewed Patient Risk: High Procedure Risk: Low Anesthetic Plan Anesthetic Plan: MAC: Disposition: Standard PACU
--- NOTE | 2024-08-30 12:12 | MHC.CM.PN ---
EMR REVIEWED, PT RETURNING TO OR FOR FURTHER AMP, NO PLAN FOR DC AT THIS TIME, ANTIC PT WILL DC HOME W/RESUMP OF [facility] VNA, VNA UPDATED AND CM WILL CONT TO FOLLOW DC NEEDS.
--- NOTE | 2024-08-30 12:16 | MHC.SHP ---
Pre-Procedural Eval Section A - 24 Hr Update-Section A only Date of Service: 08/30/24 The patient is an INPATIENT: Yes Changes since office visit: No Cold of Flu in the past 2 weeks, No New Medical Problems, No Changes in Medication and No Patient answered all questions The patient has been examined within 24 hours of the surgical procedure. The History & Physical has been completed within 30 days and I have reviewed it.: Yes Section B - Complete if H&P > 30 days Chief Complaint: gangrene Allergies: Allergies Allergy/AdvReac Type Severity Reaction Status Date / Time Iodinated Contrast Media Allergy Severe Facial Verified 08/22/24 11:22 (Contrast Dye) Swelling hydralazine AdvReac Severe vasculitis Verified 08/22/24 11:22 Plan I have reviewed the history and physical and performed a pertinent physical examination on my patient. No changes have occurred unless specified. Time Spent With Patient Time: Total time managing care of this patient today ____ minutes.
[2024-08-30 14:58] LABS: Glucose, Whole Blood 126 mg/dL (60-115)
--- NOTE | 2024-08-30 18:42 | HO.PM.IMPN ---
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, and pt calmed down Reports right hand pain, though does not want any opioids due to hx of substance use Otherwise no acute medical complaints Review of Systems Review of Systems: Yes all other systems are reviewed and are negative Physical Exam Vital Signs: Vital Signs: Last Vital Signs Temp 98.8 F 08/30/24 14:58 Pulse 64 08/30/24 14:58 Resp 17 08/30/24 14:58 BP 162/72 H 08/30/24 14:58 Pulse Ox 91 L 08/30/24 14:58 O2 Del Method Room Air 08/30/24 14:58 O2 Flow Rate 2 08/30/24 14:15 BMI result Body Mass Index 27.3 General: AOx3, agitated, in no acute distress Resp: CTA bilaterally CVS: S1, S2, RRR GI: +BS, NT, no distention Skin: Warm, dry Neuro: Cranial nerves II-XII grossly intact bilaterally. Motor grossly intact bilaterally Extremities: No edema. Right hand wrapped in clean dressing Psych: Agitated, combative Objective Data Active Medications Acetaminophen (Acetaminophen 325 Mg Tablet) 650 mg PO Q6H PRN PRN Reason: Pain, Mild 1-3,fever,headache Last Admin: 08/25/24 12:20 Dose: 650 mg Documented By: SHAHZAD Albuterol Sulfate (Albuterol Sulfate 90 Mcg 8 Gm Inhaler) 2 puff INHALE Q4H PRN PRN Reason: Wheezing Allopurinol (Allopurinol 100 Mg Tablet) 100 mg PO MOWEFR@1600 [facility] [place] Last Admin: 08/30/24 17:04 Dose: Not Given Documented By: WENDY Non-Admin Reason: NPO Amlodipine Besylate (Amlodipine Besylate 10 Mg Tablet) 10 mg PO DAILY [facility] [place]; Protocol Last Admin: 08/30/24 13:53 Dose: Not Given Documented By: WENDY Non-Admin Reason: Off unit: Dialysis Aspirin (Aspirin Enteric Coated 81 Mg Tablet.) 81 mg PO MOWEFR@1600 [facility] Last Admin: 08/30/24 17:04 Dose: Not Given Documented By: WENDY Non-Admin Reason: NPO Aspirin (Aspirin Enteric Coated 81 Mg Tablet.Dr) 81 mg PO SUTUTHSA@0900 [facility] [place] Last Admin: 08/29/24 09:05 Dose: 81 mg Documented By: FRANCISCO Atorvastatin Calcium (Atorvastatin Calcium 40 Mg Tablet) 40 mg PO MOWEFR@1600 [facility] [place] Last Admin: 08/30/24 17:04 Dose: Not Given Documented By: WENDY Non-Admin Reason: NPO Atorvastatin Calcium (Atorvastatin Calcium 40 Mg Tablet) 40 mg PO SUTUTHSA@0900 [facility] [place] Last Admin: 08/29/24 09:06 Dose: 40 mg Documented By: FRANCISCO Calcium Carbonate (Calcium Carbonate 750 Mg Tab.Chew) 750 mg PO Q4H PRN PRN Reason: Heartburn Carvedilol (Carvedilol 12.5 Mg Tablet) 12.5 mg PO BID [facility] [place]; Protocol Last Admin: 08/30/24 13:54 Dose: Not Given Documented By: WENDY Non-Admin Reason: Off Unit: Surgery Dextrose (Dextrose 50 % 25 Gm/50 Ml Syringe) 25 gm IVPUSH Q15M PRN; Protocol PRN Reason: per Hypoglycemia Standing Ord. Last Admin: 08/27/24 07:59 Dose: 25 gm Documented By: TRUDY Docusate Sodium (Docusate Sodium 100 Mg Capsule) 100 mg PO DAILY [facility] Last Admin: 08/30/24 13:54 Dose: Not Given Documented By: WENDY Non-Admin Reason: Off Unit: Surgery Doxazosin Mesylate (Doxazosin Mesylate 2 Mg Tablet) 4 mg PO BEDTIME [facility]; Protocol Last Admin: 08/29/24 20:47 Dose: 4 mg Documented By: SYED Fluticasone/Umeclidinium/Vilanterol (Fluticasone/Umeclidinium/Vilanterol 100/62.5/25 Blst.W.Dev) 1 puff INHALE RDAILY [facility] [place] Last Admin: 08/30/24 08:22 Dose: 1 puff Documented By: JESSICA Furosemide (Furosemide 40 Mg Tablet) 80 mg PO MOWEFR@1600 [facility] [place]; Protocol Last Admin: 08/30/24 17:04 Dose: Not Given Documented By: WENDY Non-Admin Reason: NPO Furosemide (Furosemide 40 Mg Tablet) 80 mg PO SUTUTHSA@0900 [facility]; Protocol Last Admin: 08/29/24 09:05 Dose: 80 mg Documented By: FRANCISCO Glucose (Glucose Gel 15 Gm Gel..Gram.) 15 gm PO Q15M PRN PRN Reason: per Hypoglycemia Standing Ord. Last Admin: 08/25/24 04:50 Dose: 15 gm Documented By: HENRIETTA Heparin Sodium (Porcine) (Heparin Sodium,Porcine 5,000 Unit/Ml Vial) 5,000 unit SUBCUT Q12H [facility] On Hold: 08/30/24 00:00 Last Admin: 08/29/24 21:04 Dose: 5,000 unit Documented By: SYED Vancomycin HCl 500 mg/ Sodium (Chloride) 110 mls @ 110 mls/hr IV ONCE ONE Stop: 08/23/24 20:59 Levetiracetam (Keppra) 1,000 mg in 100 mls @ 400 mls/hr IV Q12H [facility] [place] Last Admin: 08/30/24 13:55 Dose: Not Given Documented By: WENDY Non-Admin Reason: Off Unit: Surgery Insulin Glargine (Insulin Glargine,Hum.Rec.Anlog 100 Unit/Ml 10 Ml Vial) 10 unit SUBCUT BEDTIME [facility] On Hold: 08/28/24 21:00 Insulin Human Lispro (Insulin Lispro 100 Unit/Ml 3 Ml Vial) 0 unit SUBCUT QIDACHS [facility] [place]; Protocol Last Admin: 08/30/24 16:50 Dose: Not Given Documented By: WENDY Non-Admin Reason: No Insulin Coverage Losartan Potassium (Losartan Potassium 25 Mg Tablet) 25 mg PO MOWEFR@1600 [facility]; Protocol Last Admin: 08/30/24 17:05 Dose: Not Given Documented By: WENDY Non-Admin Reason: NPO Losartan Potassium (Losartan Potassium 25 Mg Tablet) 25 mg PO SUTUTHSA@0900 [facility] [place]; Protocol Last Admin: 08/29/24 09:05 Dose: 25 mg Documented By: FRANCISCO Magnesium Hydroxide (Milk Of Magnesia 30 Ml Oral.Susp) 30 ml PO DAILY PRN PRN Reason: Constipation Melatonin (Melatonin 3 Mg Tablet) 6 mg PO BEDTIME PRN PRN Reason: Insomnia Last Admin: 08/28/24 22:00 Dose: 6 mg Documented By: KEREN Omeprazole (Omeprazole 20 Mg Capsule.) 20 mg PO DAILY@0630 [facility] Last Admin: 08/30/24 06:15 Dose: Not Given Documented By: RITIKA Non-Admin Reason: Patient Refused Ondansetron HCl (Ondansetron Hcl 4 Mg/2 Ml Vial) 4 mg IVPUSH Q8H PRN PRN Reason: Nausea and Vomiting Oxycodone HCl (Oxycodone Hcl Immed Release 5 Mg Tablet) 5 mg PO Q6H PRN PRN Reason: Pain, Severe (Pain Scale 7-10) Last Admin: 08/30/24 09:32 Dose: 5 mg Documented By: WENDY Pharmacy Consult (Consult Rx Vancomycin Dosing) 1 each MISCELLANE DAILY PRN PRN Reason: Consult order Pregabalin (Pregabalin 75 Mg Capsule) 75 mg PO DAILY [facility] Last Admin: 08/30/24 13:55 Dose: Not Given Documented By: WENDY Non-Admin Reason: Off Unit: Surgery Sevelamer Carbonate (Sevelamer Carbonate Tablet 800 Mg Tablet) 800 mg PO TIDWM [facility] [place] Last Admin: 08/30/24 17:05 Dose: Not Given Documented By: WENDY Non-Admin Reason: NPO Sodium Chloride (0.9 % Sodium Chloride Flush 3 Ml Syringe) 3 ml IVFLUSH QSHIFT [facility] Last Admin: 08/30/24 17:05 Dose: Not Given Documented By: WENDY Non-Admin Reason: Previously Administered Labs 08/30/24 06:26 08/30/24 06:26 Labs: Laboratory Results - last 24 hr 08/29/24 08/30/24 08/30/24 19:46 03:14 06:26 MCV 73.3 L MCH 22.9 L MCHC 31.3 RDW 18.4 H Plt Count 261 MPV Not Reportable Absolute Nucleated RBC 0.000 Nucleated RBC % (auto) 0.0 Anion Gap 18 Estim Creat Clear Calc 10.1 Estimated GFR 9 POC Glucose 204 H 167 H Random Glucose 145 H Calcium 8.6 08/30/24 08/30/24 08:10 14:50 MCV MCH MCHC RDW Plt Count MPV Absolute Nucleated RBC Nucleated RBC % (auto) Anion Gap Estim Creat Clear Calc Estimated GFR POC Glucose 127 H 126 H Random Glucose Calcium Assessment and Plan (1) Dry gangrene: Status: Acute Assessment and Plan: 69M PMH significant for?ESRD on HD M/W/F, insulin-dependent type 2 diabetes, peripheral vascular disease, s/p right BKA 04/[address] Cannon, seizure disorder, HFrEF, HTN, HLD, chronically on 2L home O2, GERD, and ROBERT on CPAP who presented to the ED with?worsening pain in his right hand with 3rd and 4th fingers dry gangrene. Right hand ischemic changes,s/p amputation 3rd and 4th fingers - not septic, dry gangrene with necrosis s/p amputation right 3rd and 4th fingers, POD3 s/p additional debridement and ray resection of 3rd metacarpal Followed by ortho, plan for further resection/debridement on Monday with ortho Continue IV Vancomycin Acute encephalopathy, improving Agitated and combative post-surgical debridement this afternoon, though since calmed down Possibly due to hypoglycemia, blood sugars improving and mentation better Head CT and labs otherwise without explanation for encephalopathy Monitor mentation Uncontrolled HTN Continue losartan, Amlodipine Doxazosin Chronic hypoxic respiratory failure On 2 L of home oxygen/obstructive sleep apnea on CPAP No acute hypoxia. ESRD on HD // Continue Velphoro, Lasix Nephro- recs Levemir 800 mg t.i.d. with meals, fluid restriction 1.5 L, low potassium, phosphorus and sodium diet. carvedilol to 12.5 mg b.i.d. hyperkalemia improved follow BMP Insulin-dependent type 2 diabetes with hypoglycemia continue Sliding-scale insulin Lantus 10 units at bedtime - restarting at lower dose Seizure disorder Continue Keppra HLD/PAD aspirin Peripheral neuropathy Continue pregabalin DVT Prophylaxis: Pneumatic compression; heparin subQ being held due to surgery on Monday and additional surgery on Monday reason for continued hospitalization: Dry gangrene s/p amputation, scheduled for further amputation tomorrow Quality Stroke Does the patient have a stroke diagnosis?: No VTE Prior VTE?: No VTE Risk Level:: Medical - moderate - high VTE Device Contraindication: Treatment Not Indicated VTE Drug Contraindication: N/A - Med Ordered
[2024-08-30 20:59] LABS: Glucose, Whole Blood 415 mg/dL (60-115)
[2024-08-30] MEDS: Insulin Glargine,Hum.rec.anlog 100 UNIT/ML 10 ML VIAL 10 UNIT SUBCUT (21:16)
[2024-08-30] MEDS: levETIRAcetam in NaCl (iso-os) 1,000 MG/100 ML PIGGYBACK 400 MG IV (21:17)
[2024-08-30] MEDS: 0.9 % Sodium Chloride Flush 3 ML SYRINGE IVFLUSH (23:59)
[2024-08-31] VITALS (7 sets, daily range): BP systolic 115–178; BP diastolic 57–83; PULSE 55–76; RESP 16–18; TEMP 36.7–37.7; O2SAT 92–97
[2024-08-31 00:07] LABS: Glucose, Whole Blood 276 mg/dL (60-115)
[2024-08-31 03:47] LABS: Glucose, Whole Blood 281 mg/dL (60-115)
[2024-08-31 07:08] LABS: Hematocrit 34.8 % (42.0-52.0); Hemoglobin 10.9 g/dl (14.0-18.0); Mean Corpuscular HGB Conc 31.3 g/dl (31.0-36.0); Mean Corpuscular Hemoglobin 22.9 pg (27.0-33.0); Mean Corpuscular Volume 73.0 fL (80.0-98.0); NRBC Abs Auto 0.000 X10*3/uL (0.0-0.012); NRBC Pct Auto 0.0 /100WBC (0.0-0.2); Platelet Count 296 X10*3/uL (160-400); Red Blood Count 4.77 X10*6/uL (4.60-5.80); White Blood Count 18.1 X10*3/uL (4.8-10.8)
[2024-08-31 07:32] LABS: Glucose, Whole Blood 296 mg/dL (60-115)
[2024-08-31 07:37] LABS: Anion Gap 20 (12-20); Blood Urea Nitrogen 54 mg/dL (9-16); Calcium 8.6 mg/dL (8.4-10.2); Carbon Dioxide 23 mmol/L (22-29); Chloride 102 mmol/L (96-108); Creatinine Clr Calc Pharmacy 10.8; Estimated Glomerular Filt Rate 10; Potassium 4.9 mmol/L (3.3-5.1); Sodium 140 mmol/L (135-145)
[2024-08-31] MEDS: 0.9 % Sodium Chloride Flush 3 ML SYRINGE IVFLUSH ×3 (07:53→20:19)
[2024-08-31] MEDS: Sevelamer Carbonate Tablet 800 MG TABLET PO ×3 (07:58→16:28)
[2024-08-31] MEDS: Aspirin Enteric Coated 81 MG TABLET.DR PO (08:05)
[2024-08-31] MEDS: Fluticasone/Umeclidinium/Vilanterol 100/62.5/25 BLST.W.DEV 1 PUFF INHALE (08:19)
--- NOTE | 2024-08-31 10:37 | P.BOP_ITS ---
Brief Operative Note Date of Service: 08/30/24 Pre-op diagnosis: Right Long finger Wet Gangrene Post-op diagnosis: same Procedure: Incision and debridement with long finger metacarpal head resection Surgeon: Baldemar Witt MD Anesthesia: regional Was an Health Information Internship used for this Procedure?: No Estimated blood loss (mL): 10 IV fluids (mL): 250 Pathology: none sent Condition: stable Disposition: PACU
--- NOTE | 2024-08-31 10:41 | W.PM.OPN ---
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 This resulted in loss of skin over the 2nd/3rd webspace. He was taken back to the operating room to undergo further irrigation debridement with attempts at wound closure. I discussed these findings with the HCP and consent was given. Procedure in detail: Patient was brought to the operating room and placed supine with a hand table. He was prepped and draped in standard sterile fashion IV antibiotics were administered. I began by examining the wound. There was malodorous necrotic tissue in the webspace and involving the volar aspect of the Bernard space overlying the long finger metacarpal head. I extended the dorsal incision from the level of the webspace down 3 cm obliquely across the metacarpal head. This tissue appeared healthy and was bleeding. The volar tissues however were not bleeding and the flexor tendon appeared involved and was covered in purulent material. The digital neurovascular bundles were identified. There was no flow in either of these and it was difficult to assess where the flow blockage was whether or not it was proximal or distal to the bifurcation of the tissue was severely compromised. I tried to avoid dissecting these rather dissected the soft tissue volar to the metacarpal head. The skin of the palm here had a necrotic delineation in a watershed pattern. The flexor tendons were cut and left to retract. The metacarpal head was exposed and there was no healthy tissue for coverage so I took a rongeur and remove the head of the metacarpal. The collateral soft tissues were dissected off the head. Extensor lopez was also dissected and the extensor tendon was left overlying the resected remaining metacarpal. I then irrigated copiously with saline. There was no skin for closure and I did not want to dissect more of the volar skin. The ulnar aspect of the index proximal phalangeal stump was intact but there was proximally 1 cm necrosis involving the radial aspect of the ring finger skin at the level of the webspace/proximal phalangeal shaft. This was also debrided down and resulted in additional loss of skin. I removed all non viable tissue and necrotic skin. The dorsal skin was bleeding but the volar skin edges were not. After copious irrigation I cloed the dorsal incision and tried to close the skin at the borders of the web space but this would not hold a stitch. The area of skin loss was approximately 2 cm circumferentially. I placed a sterile dressing over the wound with xeroform. Patient was awake and brought to the recovery room in stable condition. There were no known complications.
[2024-08-31 11:32] LABS: Glucose, Whole Blood 169 mg/dL (60-115)
[2024-08-31] MEDS: cefEPime HCl/D5W 2 GM/50 ML PIGGYBACK IV (11:46)
--- NOTE | 2024-08-31 12:39 | PM.PNORT ---
Subjective Subjective Date of Service: 08/31/24 Interval history: Postop day 3 status post right middle and index finger amputations and postop day 1 status post ray resection of right 3rd metacarpal Resting comfortably in bed this morning Pain appears well managed Patient states ?cut it off? when pointing to his hand over the course of interview No acute complaints or concerns at this time Physical Exam Vital Signs: Vital Signs: Last Vital Signs Temp 98.2 F 08/31/24 11:31 Pulse 61 08/31/24 11:31 Resp 17 08/31/24 11:31 BP 115/57 L 08/31/24 11:31 Pulse Ox 92 08/31/24 11:31 O2 Del Method Room Air 08/31/24 11:31 O2 Flow Rate 2 08/31/24 04:00 BMI result Body Mass Index 27.3 Extrem: Other: Patient is alert, oriented, and in no acute distress. Pain: No active pain response noted with dressing change Patient demonstrates range of motion of remaining fingers ROM: Patient is able to flex and extend ring, small fingers of the right hand over the course of interview Skin: Well-approximated incision noted at PIP level of right index finger Open wound proximal to where the MCP joint was There does appear to be blood from the incision on the index finger, no bleeding or evidence of discharge from wound on middle finger Skin immediately surrounding wound at base of where middle finger was appears dusky, duskiness appears to be extending into the palm of the hand General: Wound on middle finger is noted to be malodorous Psych: Appears grossly normal Affect normal Attitude cooperative Procedures Date of Service Date of Service: 08/31/24 Progress Note: A&P Assessment and plan (1) Necrosis of finger: Status: Acute (2) Status post amputation of finger of right hand: Status: Acute (3) 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: Status: Acute (4) Dry gangrene: Status: Acute Plan Status post right middle finger amputation and ray resection Status post right index finger amputation at PIP joint Case was discussed with Dr. Witt, who was available to see the patient with me today, and a collaborative treatment plan was formed: I educated the patient about the condition. I discussed both operative and nonoperative treatment options. The patient would like to proceed with surgery. The risks and benefits of operative treatment were discussed with the patient and the patient wishes to proceed with surgery. These risks include, but are not limited to, risk of damage to blood vessels, nerves, tendons, infection, recurrence, incomplete relief of preoperative symptoms, persistent pain, possible need for further surgery, and the risks associated with regional blocks and/or anesthesia. Plan is to take the patient to the operating room on 09/01/2024 for the following procedures: 1. I and D of right hand NPO at midnight for surgery tomorrow Begin exploring hospital to hospital transfer for further care in a tertiary care setting Add cefepime for broad-spectrum antibiotic coverage per Dr. Hu Continue with all other recommendations per Medicine Dressing changed today Time Spent With Patient Time: Total time managing care of this patient today ____ minutes. Quality Stroke Does the patient have a stroke diagnosis?: No VTE Prior VTE?: No VTE Risk Level:: Medical - moderate - high VTE Device Contraindication: Treatment Not Indicated VTE Drug Contraindication: N/A - Med Ordered
--- NOTE | 2024-08-31 15:09 | HO.POSTANES ---
Post Anesthesia Evaluation Post Anesthesia Evaluation Date of Service: 08/31/24 Vital Signs: Vital Signs Temp Pulse Resp BP Pulse Ox O2 Del Method O2 Flow Rate 08/31/24 11:31 98.2 F 61 17 115/57 L 92 Room Air 08/31/24 08:20 64 18 08/31/24 07:31 99.4 F 62 18 178/77 H 95 Room Air 08/31/24 04:00 98.7 F 76 18 148/58 H 97 Nasal Cannula 2 Anesthesia: General Mental Status: Sedated Pain Control: Satisfactory Nausea/Vomiting: None Hydration: Adequate Anesthesia-Related Issues: No Anes. Related Issues
[2024-08-31 15:47] LABS: Glucose, Whole Blood 197 mg/dL (60-115)
--- NOTE | 2024-08-31 16:04 | P.PNIM_ITS ---
Subjective Subjective Date of Service: 08/31/24 Interval History: This history was taken in Hebrew from the patient. Pain controlled. Pt frustrated at progression of infection despite 2 surgeries Review of Systems Review of Systems: Yes all other systems are reviewed and are negative Physical Exam 2 Vital Signs: Vital Signs: Last Vital Signs Temp 99.0 F 08/31/24 15:36 Pulse 55 08/31/24 15:36 Resp 17 08/31/24 15:36 BP 164/75 H 08/31/24 15:36 Pulse Ox 92 08/31/24 15:36 O2 Del Method Room Air 08/31/24 15:36 O2 Flow Rate 2 08/31/24 04:00 BMI result Body Mass Index 27.3 Gen: in no acute distress HEENT: sclera anicteric, moist mucus membranes Neck: supple Lungs: clear to auscultation bilaterally Heart: regular rate and rhythm, no murmurs Abd: soft, non-tender, non-distended Ext: no edema, R index finger amputation site with well-approximated incision, open wound at MCP site with discoloration/necrosis extending proximally Skin: warm/well-perfused Neuro: alert and oriented x3, no focal findings Psych: appropriate affect Objective Data Active Medications Acetaminophen (Acetaminophen 325 Mg Tablet) 650 mg PO Q6H PRN PRN Reason: Pain, Mild 1-3,fever,headache Last Admin: 08/25/24 12:20 Dose: 650 mg Documented By: SHAHZAD Albuterol Sulfate (Albuterol Sulfate 90 Mcg 8 Gm Inhaler) 2 puff INHALE Q4H PRN PRN Reason: Wheezing Allopurinol (Allopurinol 100 Mg Tablet) 100 mg PO MOWEFR@1600 [facility] Last Admin: 08/30/24 17:04 Dose: Not Given Documented By: WENDY Non-Admin Reason: NPO Amlodipine Besylate (Amlodipine Besylate 10 Mg Tablet) 10 mg PO DAILY [facility]; Protocol Last Admin: 08/31/24 08:00 Dose: 10 mg Documented By: CHAU Aspirin (Aspirin Enteric Coated 81 Mg Tablet.) 81 mg PO MOWEFR@1600 [facility] Last Admin: 08/30/24 17:04 Dose: Not Given Documented By: WENDY Non-Admin Reason: NPO Aspirin (Aspirin Enteric Coated 81 Mg Tablet.) 81 mg PO SUTUTHSA@0900 [facility] Last Admin: 08/31/24 08:05 Dose: 81 mg Documented By: CHAU Atorvastatin Calcium (Atorvastatin Calcium 40 Mg Tablet) 40 mg PO MOWEFR@1600 [facility] Last Admin: 08/30/24 17:04 Dose: Not Given Documented By: WENDY Non-Admin Reason: NPO Atorvastatin Calcium (Atorvastatin Calcium 40 Mg Tablet) 40 mg PO SUTUTHSA@0900 [facility] Last Admin: 08/31/24 08:04 Dose: 40 mg Documented By: CHAU Calcium Carbonate (Calcium Carbonate 750 Mg Tab.Chew) 750 mg PO Q4H PRN PRN Reason: Heartburn Carvedilol (Carvedilol 12.5 Mg Tablet) 12.5 mg PO BID [facility]; Protocol Last Admin: 08/31/24 08:05 Dose: 12.5 mg Documented By: CHAU Dextrose (Dextrose 50 % 25 Gm/50 Ml Syringe) 25 gm IVPUSH Q15M PRN; Protocol PRN Reason: per Hypoglycemia Standing Ord. Last Admin: 08/27/24 07:59 Dose: 25 gm Documented By: TRUDY Docusate Sodium (Docusate Sodium 100 Mg Capsule) 100 mg PO DAILY [facility] Last Admin: 08/31/24 08:01 Dose: 100 mg Documented By: CHAU Doxazosin Mesylate (Doxazosin Mesylate 2 Mg Tablet) 4 mg PO BEDTIME [facility]; Protocol Last Admin: 08/30/24 21:17 Dose: Not Given Documented By: MARLEN Non-Admin Reason: Patient Refused Fluticasone/Umeclidinium/Vilanterol (Fluticasone/Umeclidinium/Vilanterol 100/62.5/25 Blst.W.Dev) 1 puff INHALE RDAILY [facility] Last Admin: 08/31/24 08:19 Dose: 1 puff Documented By: ELVA Furosemide (Furosemide 40 Mg Tablet) 80 mg PO MOWEFR@1600 [facility]; Protocol Last Admin: 08/30/24 17:04 Dose: Not Given Documented By: WENDY Non-Admin Reason: NPO Furosemide (Furosemide 40 Mg Tablet) 80 mg PO SUTUTHSA@0900 [facility]; Protocol Last Admin: 08/31/24 08:02 Dose: 80 mg Documented By: CHAU Glucose (Glucose Gel 15 Gm Gel..Gram.) 15 gm PO Q15M PRN PRN Reason: per Hypoglycemia Standing Ord. Last Admin: 08/25/24 04:50 Dose: 15 gm Documented By: HENRIETTA Heparin Sodium (Porcine) (Heparin Sodium,Porcine 5,000 Unit/Ml Vial) 5,000 unit SUBCUT Q12H [facility] On Hold: 08/30/24 00:00 Last Admin: 08/29/24 21:04 Dose: 5,000 unit Documented By: SYED Hydrocortisone (Hydrocortisone 1 % Ointment 28.35 Gm Tube) 1 appl TOPICAL BID PRN; Protocol PRN Reason: itching Vancomycin HCl 500 mg/ Sodium (Chloride) 110 mls @ 110 mls/hr IV ONCE ONE Stop: 08/23/24 20:59 Cefepime HCl 1 gm/ Sodium (Chloride) 50 mls @ 100 mls/hr IV Q24H [facility] Insulin Glargine (Insulin Glargine,Hum.Rec.Anlog 100 Unit/Ml 10 Ml Vial) 10 unit SUBCUT BEDTIME [facility] Last Admin: 08/30/24 21:16 Dose: 10 unit Documented By: MARLEN Insulin Human Lispro (Insulin Lispro 100 Unit/Ml 3 Ml Vial) 0 unit SUBCUT QIDACHS [facility]; Protocol Last Admin: 08/31/24 15:39 Dose: 2 unit Documented By: CHAU Levetiracetam (Levetiracetam 1,000 Mg Tablet) 1,000 mg PO BID [facility] Last Admin: 08/31/24 09:54 Dose: 1,000 mg Documented By: CHAU Losartan Potassium (Losartan Potassium 25 Mg Tablet) 25 mg PO MOWEFR@1600 [facility]; Protocol Last Admin: 08/30/24 17:05 Dose: Not Given Documented By: WENDY Non-Admin Reason: NPO Losartan Potassium (Losartan Potassium 25 Mg Tablet) 25 mg PO SUTUTHSA@0900 [facility]; Protocol Last Admin: 08/31/24 08:06 Dose: 25 mg Documented By: CHAU Magnesium Hydroxide (Milk Of Magnesia 30 Ml Oral.Susp) 30 ml PO DAILY PRN PRN Reason: Constipation Melatonin (Melatonin 3 Mg Tablet) 6 mg PO BEDTIME PRN PRN Reason: Insomnia Last Admin: 08/28/24 22:00 Dose: 6 mg Documented By: KEREN Omeprazole (Omeprazole 20 Mg Capsule.) 20 mg PO DAILY@0630 [facility] Last Admin: 08/31/24 06:46 Dose: Not Given Documented By: BALDEMAR Non-Admin Reason: Patient Refused Ondansetron HCl (Ondansetron Hcl 4 Mg/2 Ml Vial) 4 mg IVPUSH Q8H PRN PRN Reason: Nausea and Vomiting Oxycodone HCl (Oxycodone Hcl Immed Release 5 Mg Tablet) 5 mg PO Q6H PRN PRN Reason: Pain, Severe (Pain Scale 7-10) Last Admin: 08/30/24 09:32 Dose: 5 mg Documented By: WENDY Pharmacy Consult (Consult Rx Vancomycin Dosing) 1 each MISCELLANE DAILY PRN PRN Reason: Consult order Pregabalin (Pregabalin 75 Mg Capsule) 75 mg PO DAILY [facility] Last Admin: 08/31/24 08:01 Dose: 75 mg Documented By: CHAU Sevelamer Carbonate (Sevelamer Carbonate Tablet 800 Mg Tablet) 800 mg PO TIDWM [facility] Last Admin: 08/31/24 11:46 Dose: 800 mg Documented By: CHAU Sodium Chloride (0.9 % Sodium Chloride Flush 3 Ml Syringe) 3 ml IVFLUSH QSHIFT [facility] Last Admin: 08/31/24 07:53 Dose: 3 ml Documented By: CHAU Labs 08/31/24 06:39 08/31/24 06:39 Labs: Laboratory Results - last 24 hr 08/30/24 08/30/24 08/31/24 18:18 20:39 00:03 MCV MCH MCHC RDW Plt Count MPV Absolute Nucleated RBC Nucleated RBC % (auto) Anion Gap Estim Creat Clear Calc Estimated GFR POC Glucose 415 H* 276 H Random Glucose Calcium Random Vancomycin 16.6 08/31/24 08/31/24 08/31/24 03:41 06:39 07:26 MCV 73.0 L MCH 22.9 L MCHC 31.3 RDW 18.5 H Plt Count 296 MPV 10.8 Absolute Nucleated RBC 0.000 Nucleated RBC % (auto) 0.0 Anion Gap 20 Estim Creat Clear Calc 10.8 Estimated GFR 10 POC Glucose 281 H 296 H Random Glucose 334 H Calcium 8.6 Random Vancomycin 08/31/24 08/31/24 11:20 15:32 MCV MCH MCHC RDW Plt Count MPV Absolute Nucleated RBC Nucleated RBC % (auto) Anion Gap Estim Creat Clear Calc Estimated GFR POC Glucose 169 H 197 H Random Glucose Calcium Random Vancomycin Assessment and Plan (1) Dry gangrene: Status: Acute Assessment and Plan: d10 for 69yo M with DM2, ESRD on HD MWF, PVD, 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 Recommend transfer to tertiary care center with hand surgeon as our hand surgeon is out for the next 1 week. - has been on IV vancomycin since 08/22- and will add cefepime 08/31- acute encephalopathy due to infection vs hypoglycemia - improving, hypoglycemia resolved, CT head negative HTN - losartan, amlodipine, doxazosin, carvedilol ESRD on HD with hyperkalemia - HD MWF, sevelamer, furosemide - K now normal chronic hypoxic resp failure ROBERT - 2L home O2, CPAP at night DM2 with hypoglycemia - basal-bolus insulin; hypoglycemia resolved seizure disorder - levetiracetam PVD - aspirin, atorvastatin neuropathy - pregabalin VTE ppx - SCDs; heparin on hold for surgery In my clinical judgment, the patient requires continued inpatient hospitalization for the following reasons: IV ABX, surgical management dispo - possible transfer to tertiary care Total time managing care of this patient today: 55 minutes. Quality Stroke Does the patient have a stroke diagnosis?: No VTE Prior VTE?: No VTE Risk Level:: Medical - moderate - high VTE Device Contraindication: Treatment Not Indicated VTE Drug Contraindication: N/A - Med Ordered
[2024-08-31 21:17] LABS: Glucose, Whole Blood 228 mg/dL (60-115)
[2024-08-31] MEDS: Insulin Glargine,Hum.rec.anlog 100 UNIT/ML 10 ML VIAL 10 UNIT SUBCUT (21:35)
[2024-09-01] VITALS (11 sets, daily range): BP systolic 99–161; BP diastolic 59–75; PULSE 53–64; RESP 16–20; TEMP 36.2–36.7; O2SAT 93–100
[2024-09-01 07:07] LABS: NRBC Abs Auto 0.000 X10*3/uL (0.0-0.012); NRBC Pct Auto 0.0 /100WBC (0.0-0.2)
[2024-09-01 07:08] LABS: Hematocrit 33.8 % (42.0-52.0); Hemoglobin 10.7 g/dl (14.0-18.0); Mean Corpuscular HGB Conc 31.7 g/dl (31.0-36.0); Mean Corpuscular Hemoglobin 23.0 pg (27.0-33.0); Mean Corpuscular Volume 72.5 fL (80.0-98.0); Platelet Count 314 X10*3/uL (160-400); Red Blood Count 4.66 X10*6/uL (4.60-5.80); White Blood Count 15.9 X10*3/uL (4.8-10.8)
[2024-09-01 07:14] LABS: PLT ABN DIST 1
[2024-09-01 07:46] LABS: Glucose, Whole Blood 102 mg/dL (60-115)
[2024-09-01] MEDS: Fluticasone/Umeclidinium/Vilanterol 100/62.5/25 BLST.W.DEV 1 PUFF INHALE (08:12)
[2024-09-01 08:23] LABS: Anion Gap 21 (12-20); Blood Urea Nitrogen 74 mg/dL (9-16); Calcium 8.8 mg/dL (8.4-10.2); Carbon Dioxide 20 mmol/L (22-29); Chloride 101 mmol/L (96-108); Creatinine Clr Calc Pharmacy 8.9; Estimated Glomerular Filt Rate 8; Potassium 4.7 mmol/L (3.3-5.1); Sodium 137 mmol/L (135-145)
--- NOTE | 2024-09-01 08:45 | MHC.SHP ---
Pre-Procedural Eval Section A - 24 Hr Update-Section A only Date of Service: 09/01/24 The patient is an INPATIENT: Yes Changes since office visit: No Cold of Flu in the past 2 weeks, No New Medical Problems, No Changes in Medication and No Patient answered all questions The patient has been examined within 24 hours of the surgical procedure. The History & Physical has been completed within 30 days and I have reviewed it.: Yes Section B - Complete if H&P > 30 days Chief Complaint: gangrene Allergies: Allergies Allergy/AdvReac Type Severity Reaction Status Date / Time Iodinated Contrast Media Allergy Severe Facial Verified 08/22/24 11:22 (Contrast Dye) Swelling hydralazine AdvReac Severe vasculitis Verified 08/22/24 11:22 Plan I have reviewed the history and physical and performed a pertinent physical examination on my patient. No changes have occurred unless specified. Time Spent With Patient Time: Total time managing care of this patient today ____ minutes.
[2024-09-01] MEDS: 0.9 % Sodium Chloride Flush 3 ML SYRINGE IVFLUSH ×3 (09:45→20:27)
--- NOTE | 2024-09-01 09:49 | P.BOP_ITS ---
Brief Operative Note Date of Service: 09/01/24 Pre-op diagnosis: Wet Gangrene right long finger Post-op diagnosis: same Procedure: Debridement right hand Surgeon: Baldemar Witt MD Anesthesia: MAC Was an Cloth Printing Back Tender used for this Procedure?: No Estimated blood loss (mL): 1 IV fluids (mL): 200 Pathology: none sent Condition: stable Disposition: PACU
[2024-09-01] MEDS: Sevelamer Carbonate Tablet 800 MG TABLET PO ×2 (09:51→16:49)
--- NOTE | 2024-09-01 10:37 | HO.ANESPROP2 ---
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 (Acute) Encephalopathy (Acute) Necrosis of finger (Acute) Numbness and tingling in right hand (Acute) AKA stump complication (Acute) Cellulitis (Acute) ESRD needing dialysis (Acute) Infection of toe (Acute) Pleural effusion (Acute) Acute hypokalemia (Acute) Osteomyelitis (Acute) Somatization disorder (Acute) Trapped lung (Acute) Recurrent pleural effusion on right (Chronic) Exudative pleural effusion (Acute) Hyponatremia (Acute) Hyperkalemia (Acute) Type 2 diabetes mellitus (Acute) Dry gangrene (Acute) PVD (peripheral vascular disease) (Acute) Postop check (Acute) Acute on chronic systolic and diastolic heart failure, NYHA class 3 (Chronic) Past Medical History Medical History Above knee amputation of right lower extremity Left ventricular systolic dysfunction (LVSD) PVD (peripheral vascular disease) Postop check Acute pericardial effusion Right sided weakness Dehiscence of wound Peripheral arterial disease Dry gangrene Cellulitis of right foot HFrEF (heart failure with reduced ejection fraction) Chronic combined systolic and diastolic CHF (congestive heart failure) Chronic pericardial effusion Arthritis Asthma Restless leg syndrome Acute on chronic systolic and diastolic heart failure, NYHA class 3 Anemia Occlusive thrombus Pulmonary edema ROBERT (obstructive sleep apnea) Type 2 diabetes mellitus Hyperlipidemia Hypertension A-V fistula ESRD on dialysis Falling Family History Family History Father No problems noted. Mother No problems noted. Family history of problems with anesthesia: No Surgical History Surgical History Status post creation of pericardial window Hx of right BKA History of transmetatarsal amputation of foot Status post transmetatarsal amputation of right foot Postop check History of surgery H/O colonoscopy Recurrent pleural effusion Pleural effusion on right (07/13/23) History of Problems with Anesthesia: No Social History Social History Household Members: Family Household Members Other:: son Housing: House Are you a primary resident care aid to a significant other at home: No Do you presently have visiting nurse or other home services: No Unable to assess alcohol history related to: Unknown Alcohol intake: former Comment: 1:1 for SI Patient Tobacco Use Status: Former Tobacco user Tobacco use type: Cigarette Second Hand Smoke Exposure: No Advance Directives Date on File: 10/04/23 service: No Current occupational status: disabled 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 Meds Allergies Allergy/AdvReac Type Severity Reaction Status Date / Time Iodinated Contrast Media Allergy Severe Facial Verified 08/22/24 11:22 (Contrast Dye) Swelling hydralazine AdvReac Severe vasculitis Verified 08/22/24 11:22 Active Medications: Current Medications Acetaminophen (Acetaminophen 325 Mg Tablet) 650 mg PO Q6H PRN PRN Reason: Pain, Mild 1-3,fever,headache Last Admin: 08/25/24 12:20 Dose: 650 mg Albuterol Sulfate (Albuterol Sulfate 90 Mcg 8 Gm Inhaler) 2 puff INHALE Q4H PRN PRN Reason: Wheezing Allopurinol (Allopurinol 100 Mg Tablet) 100 mg PO MOWEFR@1600 [facility] Last Admin: 08/30/24 17:04 Dose: Not Given Amlodipine Besylate (Amlodipine Besylate 10 Mg Tablet) 10 mg PO DAILY [facility]; Protocol Last Admin: 09/01/24 09:49 Dose: 10 mg Aspirin (Aspirin Enteric Coated 81 Mg Tablet.) 81 mg PO MOWEFR@1600 [facility] Last Admin: 08/30/24 17:04 Dose: Not Given Aspirin (Aspirin Enteric Coated 81 Mg Tablet.) 81 mg PO SUTUTHSA@0900 [facility] Last Admin: 09/01/24 08:29 Dose: Not Given Atorvastatin Calcium (Atorvastatin Calcium 40 Mg Tablet) 40 mg PO MOWEFR@1600 [facility] Last Admin: 08/30/24 17:04 Dose: Not Given Atorvastatin Calcium (Atorvastatin Calcium 40 Mg Tablet) 40 mg PO SUTUTHSA@0900 [facility] Last Admin: 09/01/24 08:29 Dose: Not Given Calcium Carbonate (Calcium Carbonate 750 Mg Tab.Chew) 750 mg PO Q4H PRN PRN Reason: Heartburn Carvedilol (Carvedilol 12.5 Mg Tablet) 12.5 mg PO BID [facility]; Protocol Last Admin: 09/01/24 08:29 Dose: Not Given Dextrose (Dextrose 50 % 25 Gm/50 Ml Syringe) 25 gm IVPUSH Q15M PRN; Protocol PRN Reason: per Hypoglycemia Standing Ord. Last Admin: 08/27/24 07:59 Dose: 25 gm Docusate Sodium (Docusate Sodium 100 Mg Capsule) 100 mg PO DAILY [facility] Last Admin: 09/01/24 09:49 Dose: 100 mg Doxazosin Mesylate (Doxazosin Mesylate 2 Mg Tablet) 4 mg PO BEDTIME [facility]; Protocol Last Admin: 08/31/24 20:18 Dose: 4 mg Fluticasone/Umeclidinium/Vilanterol (Fluticasone/Umeclidinium/Vilanterol 100/62.5 Blst.W.Dev) 1 puff INHALE RDAILY [facility] Last Admin: 09/01/24 08:12 Dose: 1 puff Furosemide (Furosemide 40 Mg Tablet) 80 mg PO MOWEFR@1600 [facility]; Protocol Last Admin: 08/30/24 17:04 Dose: Not Given Furosemide (Furosemide 40 Mg Tablet) 80 mg PO SUTUTHSA@0900 [facility]; Protocol Last Admin: 09/01/24 08:30 Dose: Not Given Glucose (Glucose Gel 15 Gm Gel..Gram.) 15 gm PO Q15M PRN PRN Reason: per Hypoglycemia Standing Ord. Last Admin: 08/25/24 04:50 Dose: 15 gm Heparin Sodium (Porcine) (Heparin Sodium,Porcine 5,000 Unit/Ml Vial) 5,000 unit SUBCUT Q12H [facility] On Hold: 08/30/24 00:00 Last Admin: 08/29/24 21:04 Dose: 5,000 unit Hydrocortisone (Hydrocortisone 1 % Ointment 28.35 Gm Tube) 1 appl TOPICAL BID PRN; Protocol PRN Reason: itching Vancomycin HCl 500 mg/ Sodium (Chloride) 110 mls @ 110 mls/hr IV ONCE ONE Stop: 08/23/24 20:59 Cefepime HCl 1 gm/ Sodium (Chloride) 50 mls @ 100 mls/hr IV Q24H [facility] Insulin Glargine (Insulin Glargine,Hum.Rec.Anlog 100 Unit/Ml 10 Ml Vial) 10 unit SUBCUT BEDTIME [facility] Last Admin: 08/31/24 21:35 Dose: 10 unit Insulin Human Lispro (Insulin Lispro 100 Unit/Ml 3 Ml Vial) 0 unit SUBCUT QIDACHS [facility]; Protocol Last Admin: 09/01/24 08:16 Dose: Not Given Levetiracetam (Levetiracetam 1,000 Mg Tablet) 1,000 mg PO BID [facility] Last Admin: 09/01/24 09:49 Dose: 1,000 mg Losartan Potassium (Losartan Potassium 25 Mg Tablet) 25 mg PO MOWEFR@1600 [facility]; Protocol Last Admin: 08/30/24 17:05 Dose: Not Given Losartan Potassium (Losartan Potassium 25 Mg Tablet) 25 mg PO SUTUTHSA@0900 [facility]; Protocol Last Admin: 09/01/24 08:30 Dose: Not Given Magnesium Hydroxide (Milk Of Magnesia 30 Ml Oral.Susp) 30 ml PO DAILY PRN PRN Reason: Constipation Melatonin (Melatonin 3 Mg Tablet) 6 mg PO BEDTIME PRN PRN Reason: Insomnia Last Admin: 08/28/24 22:00 Dose: 6 mg Omeprazole (Omeprazole 20 Mg Capsule.Dr) 20 mg PO DAILY@0630 [facility] Last Admin: 09/01/24 05:00 Dose: Not Given Ondansetron HCl (Ondansetron Hcl 4 Mg/2 Ml Vial) 4 mg IVPUSH Q8H PRN PRN Reason: Nausea and Vomiting Oxycodone HCl (Oxycodone Hcl Immed Release 5 Mg Tablet) 5 mg PO Q6H PRN PRN Reason: Pain, Severe (Pain Scale 7-10) Last Admin: 08/30/24 09:32 Dose: 5 mg Pharmacy Consult (Consult Rx Vancomycin Dosing) 1 each MISCELLANE DAILY PRN PRN Reason: Consult order Pregabalin (Pregabalin 75 Mg Capsule) 75 mg PO DAILY [facility] Last Admin: 09/01/24 09:49 Dose: 75 mg Sevelamer Carbonate (Sevelamer Carbonate Tablet 800 Mg Tablet) 800 mg PO TIDWM [facility] Last Admin: 09/01/24 09:51 Dose: 800 mg Sodium Chloride (0.9 % Sodium Chloride Flush 3 Ml Syringe) 3 ml [facility]FLUSH [facility] Last Admin: 09/01/24 09:45 Dose: 3 ml Home Medications ?Medication ?Instructions ?Recorded ?Confirmed ?Last Taken ?Type allopurinol 100 mg tablet 100 mg PO MOWEFR@1600 04/19/22 08/22/24 08/21/24 History atorvastatin 40 mg tablet 40 mg PO SUTUTHSA@0900 04/19/22 08/22/2425 History doxazosin 4 mg tablet 4 mg PO BEDTIME 04/19/22 08/22/24 08/21/24 History furosemide 80 mg tablet 80 mg PO SUTUTHSA@0900 04/19/22 08/22/24 08/21/24 History omeprazole 20 mg capsule,delayed 20 mg PO DAILY@0630 04/19/22 08/22/24 08/21/24 History release aspirin 81 mg tablet,delayed 81 mg PO SUTUTHSA@0900 06/20/23 08/22/24 08/21/24 History release pregabalin 75 mg capsule 75 mg PO DAILY 06/20/23 08/22/24 08/21/24 History aspirin 81 mg tablet,delayed 81 mg PO MOWEFR@1600 04/05/24 08/22/24 08/21/24 History release atorvastatin 40 mg tablet 40 mg PO MOWEFR@1600 04/05/24 08/22/24 08/21/24 History fluticasone fur. 100 mcg-umeclid 1 inh inhalation DAILY 04/05/24 08/22/24 08/21/24 History 62.5 mcg-vilant 25 mcg inhalat.powder (Trelegy Ellipta) furosemide 80 mg tablet 80 mg PO MOWEFR@1600 04/05/24 08/22/24 08/21/24 History losartan 25 mg tablet 25 mg PO MOWEFR@1600 04/05/24 08/22/24 08/21/24 History losartan 25 mg tablet 25 mg PO SUTUTHSA@0900 04/05/24 08/22/24 08/21/24 History insulin glargine 100 unit/mL (3 22 unit subcut BEDTIME 05/01/24 08/22/24 08/21/24 History mL) subcutaneous pen (Lantus Solostar U-100 Insulin) acetaminophen 500 mg tablet 1,000 mg PO Q8H PRN Pain 05/26/24 08/22/24 Unknown History amlodipine 10 mg tablet 10 mg PO DAILY 05/26/24 08/22/24 08/21/24 History calcium carbonate (Calcium 500) 500 mg PO TID 05/26/24 08/22/24 08/21/24 History docusate sodium 100 mg capsule 100 mg PO DAILY 05/26/24 08/22/24 08/21/24 History insulin lispro 100 unit/mL See Rx Instructions .Route .COMPLEX 05/26/24 08/22/24 08/21/24 History subcutaneous solution (Humalog U-100 Insulin) albuterol sulfate 90 mcg/actuation 2 puff inhalation Q4H PRN wheezing 08/22/24 08/22/24 Unknown History aerosol inhaler (Ventolin HFA) carvedilol 6.25 mg tablet 6.25 mg PO BID 08/22/24 08/22/24 Unknown History ipratropium 0.5 mg-albuterol 3 mg 3 ml inhalation QID PRN Shortness 08/22/24 08/22/24 08/21/24 History (2.5 mg base)/3 mL nebulization Of Breath soln sucroferric oxyhydroxide 500 mg 500 mg PO TID 08/22/24 08/22/24 08/21/24 History chewable tablet (Velphoro) Exam Height,Weight and Vital Signs: Height 5 ft 4 in Weight 72.2 kg Last Vital Signs Temp 97.5 F 09/01/24 09:44 Pulse 64 09/01/24 09:44 Resp 16 09/01/24 09:44 BP 141/66 H 09/01/24 09:44 Pulse Ox 98 09/01/24 09:44 O2 Del Method Room Air 09/01/24 09:44 O2 Flow Rate 2 09/01/24 09:28 Pertinent Lab Results Pertinent Lab Results: Laboratory Tests 08/22/24 08/22/24 08/22/24 11:41 14:20 16:08 WBC 16.3 H RBC 4.98 D Hgb 11.4 L Hct 37.1 L MCV 74.5 L MCH 22.9 L MCHC 30.7 L RDW 19.9 H Plt Count 194 MPV Not Reportable Immature Gran % (Auto) 0.4 Neut % (Auto) 86.4 H Lymph % (Auto) 7.2 L [place] % (Auto) 5.5 Eos % (Auto) 0.3 Baso % (Auto) 0.2 Lymph # (Auto) 1.2 [place] # (Auto) 0.9 Eos # (Auto) 0.1 Baso # (Auto) 0.0 Abs Immat Gran (auto) 0.07 H Absolute Neuts (auto) 14.1 H Absolute Nucleated RBC 0.030 H Nucleated RBC % (auto) 0.2 VBG pH VBG pCO2 VBG pO2 VBG HCO3 VBG O2 Saturation VBG Base Excess Sodium 137 Potassium 5.0 Chloride 96 Carbon Dioxide 27 Anion Gap 19 BUN 54 H Creatinine 6.03 H* Estim Creat Clear Calc 10.8 Estimated GFR 9 POC Glucose 381 H* Random Glucose 392 H* Lactic Acid 1.6 Calcium 8.6 Phosphorus Magnesium 1.6 Total Bilirubin 0.5 Direct Bilirubin AST 23 ALT 24 Alkaline Phosphatase 159 H Ammonia C-Reactive Protein 16.41 H Total Protein 7.1 Albumin 3.5 Random Vancomycin 08/22/24 08/22/24 08/22/24 17:11 18:49 21:05 WBC RBC Hgb Hct MCV MCH MCHC RDW Plt Count MPV Immature Gran % (Auto) Neut % (Auto) Lymph % (Auto) [place] % (Auto) Eos % (Auto) Baso % (Auto) Lymph # (Auto) [place] # (Auto) Eos # (Auto) Baso # (Auto) Abs Immat Gran (auto) Absolute Neuts (auto) Absolute Nucleated RBC Nucleated RBC % (auto) VBG pH VBG pCO2 VBG pO2 VBG HCO3 VBG O2 Saturation VBG Base Excess Sodium Potassium Chloride Carbon Dioxide Anion Gap BUN Creatinine Estim Creat Clear Calc Estimated GFR POC Glucose 405 H* 179 H 82 Random Glucose Lactic Acid Calcium Phosphorus Magnesium Total Bilirubin Direct Bilirubin AST ALT Alkaline Phosphatase Ammonia C-Reactive Protein Total Protein Albumin Random Vancomycin 08/23/24 08/23/24 08/23/24 02:46 06:33 06:55 WBC 15.8 H RBC 4.77 Hgb 11.0 L Hct 35.1 L MCV 73.6 L MCH 23.1 L MCHC 31.3 RDW 19.4 H Plt Count 183 MPV Not Reportable Immature Gran % (Auto) Neut % (Auto) Lymph % (Auto) [place] % (Auto) Eos % (Auto) Baso % (Auto) Lymph # (Auto) [place] # (Auto) Eos # (Auto) Baso # (Auto) Abs Immat Gran (auto) Absolute Neuts (auto) Absolute Nucleated RBC 0.020 H Nucleated RBC % (auto) 0.1 VBG pH VBG pCO2 VBG pO2 VBG HCO3 VBG O2 Saturation VBG Base Excess Sodium Potassium Chloride Carbon Dioxide Anion Gap BUN Creatinine Estim Creat Clear Calc Estimated GFR POC Glucose 184 H 192 H Random Glucose Lactic Acid Calcium Phosphorus Magnesium Total Bilirubin Direct Bilirubin AST ALT Alkaline Phosphatase Ammonia C-Reactive Protein Total Protein Albumin Random Vancomycin 08/23/24 08/23/24 08/23/24 10:48 11:49 16:05 WBC RBC Hgb Hct MCV MCH MCHC RDW Plt Count MPV Immature Gran % (Auto) Neut % (Auto) Lymph % (Auto) [place] % (Auto) Eos % (Auto) Baso % (Auto) Lymph # (Auto) [place] # (Auto) Eos # (Auto) Baso # (Auto) Abs Immat Gran (auto) Absolute Neuts (auto) Absolute Nucleated RBC Nucleated RBC % (auto) VBG pH VBG pCO2 VBG pO2 VBG HCO3 VBG O2 Saturation VBG Base Excess Sodium 136 Potassium 5.6 H Chloride 95 L Carbon Dioxide 25 Anion Gap 22 H BUN 70 H Creatinine 7.76 H* Estim Creat Clear Calc 8.2 Estimated GFR 7 POC Glucose 174 H 190 H Random Glucose 183 H Lactic Acid Calcium 8.6 Phosphorus 7.7 H Magnesium Total Bilirubin Direct Bilirubin AST ALT Alkaline Phosphatase Ammonia C-Reactive Protein Total Protein Albumin Random Vancomycin 08/23/24 08/24/24 08/24/24 20:34 06:33 10:09 WBC 15.9 H RBC 4.59 L Hgb 10.5 L Hct 33.8 L MCV 73.6 L MCH 22.9 L MCHC 31.1 RDW 19.4 H Plt Count 180 MPV Not Reportable Immature Gran % (Auto) 0.5 H Neut % (Auto) 85.0 H Lymph % (Auto) 5.2 L [place] % (Auto) 7.3 Eos % (Auto) 1.8 Baso % (Auto) 0.2 Lymph # (Auto) 0.8 L [place] # (Auto) 1.2 Eos # (Auto) 0.3 Baso # (Auto) 0.0 Abs Immat Gran (auto) 0.08 H Absolute Neuts (auto) 13.5 H Absolute Nucleated RBC 0.030 H Nucleated RBC % (auto) 0.2 VBG pH VBG pCO2 VBG pO2 VBG HCO3 VBG O2 Saturation VBG Base Excess Sodium 138 Potassium 4.5 Chloride 97 Carbon Dioxide 27 Anion Gap 19 BUN 56 H Creatinine 6.06 H* Estim Creat Clear Calc 10.6 Estimated GFR 9 POC Glucose 200 H 50 L* Random Glucose 84 Lactic Acid Calcium 8.6 Phosphorus Magnesium Total Bilirubin Direct Bilirubin AST ALT Alkaline Phosphatase Ammonia C-Reactive Protein Total Protein Albumin Random Vancomycin 08/24/24 08/24/24 08/24/24 10:37 10:47 10:58 WBC RBC Hgb Hct MCV MCH MCHC RDW Plt Count MPV Immature Gran % (Auto) Neut % (Auto) Lymph % (Auto) [place] % (Auto) Eos % (Auto) Baso % (Auto) Lymph # (Auto) [place] # (Auto) Eos # (Auto) Baso # (Auto) Abs Immat Gran (auto) Absolute Neuts (auto) Absolute Nucleated RBC Nucleated RBC % (auto) VBG pH VBG pCO2 VBG pO2 VBG HCO3 VBG O2 Saturation VBG Base Excess Sodium Potassium Chloride Carbon Dioxide Anion Gap BUN Creatinine Estim Creat Clear Calc Estimated GFR POC Glucose 88 101 Random Glucose Lactic Acid Calcium Phosphorus Magnesium Total Bilirubin Direct Bilirubin AST ALT Alkaline Phosphatase Ammonia C-Reactive Protein Total Protein Albumin Random Vancomycin 16.7 08/24/24 08/24/24 08/24/24 11:38 11:47 15:12 WBC RBC Hgb Hct MCV MCH MCHC RDW Plt Count MPV Immature Gran % (Auto) Neut % (Auto) Lymph % (Auto) [place] % (Auto) Eos % (Auto) Baso % (Auto) Lymph # (Auto) [place] # (Auto) Eos # (Auto) Baso # (Auto) Abs Immat Gran (auto) Absolute Neuts (auto) Absolute Nucleated RBC Nucleated RBC % (auto) VBG pH 7.38 VBG pCO2 60 VBG pO2 58 VBG HCO3 36 H VBG O2 Saturation 83.0 VBG Base Excess 9.0 Sodium 140 Potassium 4.1 Chloride 97 Carbon Dioxide 30 H Anion Gap 17 BUN 35 H Creatinine 4.61 H* Estim Creat Clear Calc 13.9 Estimated GFR 13 POC Glucose 63 Random Glucose 101 Lactic Acid Calcium 9.0 Phosphorus Magnesium Total Bilirubin 0.5 Direct Bilirubin 0.3 AST 18 ALT 19 Alkaline Phosphatase 143 H Ammonia 32 C-Reactive Protein Total Protein 7.0 Albumin 3.4 L Random Vancomycin 08/24/24 08/24/24 08/24/24 15:31 15:54 20:26 WBC RBC Hgb Hct MCV MCH MCHC RDW Plt Count MPV Immature Gran % (Auto) Neut % (Auto) Lymph % (Auto) [place] % (Auto) Eos % (Auto) Baso % (Auto) Lymph # (Auto) [place] # (Auto) Eos # (Auto) Baso # (Auto) Abs Immat Gran (auto) Absolute Neuts (auto) Absolute Nucleated RBC Nucleated RBC % (auto) VBG pH VBG pCO2 VBG pO2 VBG HCO3 VBG O2 Saturation VBG Base Excess Sodium Potassium Chloride Carbon Dioxide Anion Gap BUN Creatinine Estim Creat Clear Calc Estimated GFR POC Glucose 59 L* 85 100 Random Glucose Lactic Acid Calcium Phosphorus Magnesium Total Bilirubin Direct Bilirubin AST ALT Alkaline Phosphatase Ammonia C-Reactive Protein Total Protein Albumin Random Vancomycin 08/25/24 08/25/24 08/25/24 01:09 04:20 06:00 WBC RBC Hgb Hct MCV MCH MCHC RDW Plt Count MPV Immature Gran % (Auto) Neut % (Auto) Lymph % (Auto) [place] % (Auto) Eos % (Auto) Baso % (Auto) Lymph # (Auto) [place] # (Auto) Eos # (Auto) Baso # (Auto) Abs Immat Gran (auto) Absolute Neuts (auto) Absolute Nucleated RBC Nucleated RBC % (auto) VBG pH VBG pCO2 VBG pO2 VBG HCO3 VBG O2 Saturation VBG Base Excess Sodium Potassium Chloride Carbon Dioxide Anion Gap BUN Creatinine Estim Creat Clear Calc Estimated GFR POC Glucose 69 58 L* 102 Random Glucose Lactic Acid Calcium Phosphorus Magnesium Total Bilirubin Direct Bilirubin AST ALT Alkaline Phosphatase Ammonia C-Reactive Protein Total Protein Albumin Random Vancomycin 08/25/24 08/25/24 08/25/24 07:11 07:15 07:40 WBC 13.7 H RBC 4.57 L Hgb 10.6 L Hct 34.0 L MCV 74.4 L MCH 23.2 L MCHC 31.2 RDW 19.3 H Plt Count 164 MPV TNP Immature Gran % (Auto) 0.8 H Neut % (Auto) 81.0 H Lymph % (Auto) 8.6 L [place] % (Auto) 8.4 Eos % (Auto) 1.1 Baso % (Auto) 0.1 Lymph # (Auto) 1.2 [place] # (Auto) 1.2 Eos # (Auto) 0.2 Baso # (Auto) 0.0 Abs Immat Gran (auto) 0.11 H Absolute Neuts (auto) 11.1 H Absolute Nucleated RBC 0.030 H Nucleated RBC % (auto) 0.2 VBG pH 7.43 VBG pCO2 47 VBG pO2 64 VBG HCO3 31 H VBG O2 Saturation 88.0 VBG Base Excess 6.3 Sodium 134 L Potassium 5.3 H D Chloride 94 L Carbon Dioxide 27 Anion Gap 18 BUN 49 H Creatinine 5.96 H* Estim Creat Clear Calc 10.8 Estimated GFR 9 POC Glucose 95 Random Glucose 90 Lactic Acid Calcium 8.8 Phosphorus Magnesium Total Bilirubin Direct Bilirubin AST ALT Alkaline Phosphatase Ammonia C-Reactive Protein Total Protein Albumin Random Vancomycin 08/25/24 08/25/24 08/25/24 10:25 13:44 16:31 WBC RBC Hgb Hct MCV MCH MCHC RDW Plt Count MPV Immature Gran % (Auto) Neut % (Auto) Lymph % (Auto) [place] % (Auto) Eos % (Auto) Baso % (Auto) Lymph # (Auto) [place] # (Auto) Eos # (Auto) Baso # (Auto) Abs Immat Gran (auto) Absolute Neuts (auto) Absolute Nucleated RBC Nucleated RBC % (auto) VBG pH VBG pCO2 VBG pO2 VBG HCO3 VBG O2 Saturation VBG Base Excess Sodium Potassium Chloride Carbon Dioxide Anion Gap BUN Creatinine Estim Creat Clear Calc Estimated GFR POC Glucose 180 H 168 H 165 H Random Glucose Lactic Acid Calcium Phosphorus Magnesium Total Bilirubin Direct Bilirubin AST ALT Alkaline Phosphatase Ammonia C-Reactive Protein Total Protein Albumin Random Vancomycin 08/25/24 08/26/24 08/26/24 19:56 01:18 04:41 WBC RBC Hgb Hct MCV MCH MCHC RDW Plt Count MPV Immature Gran % (Auto) Neut % (Auto) Lymph % (Auto) [place] % (Auto) Eos % (Auto) Baso % (Auto) Lymph # (Auto) [place] # (Auto) Eos # (Auto) Baso # (Auto) Abs Immat Gran (auto) Absolute Neuts (auto) Absolute Nucleated RBC Nucleated RBC % (auto) VBG pH VBG pCO2 VBG pO2 VBG HCO3 VBG O2 Saturation VBG Base Excess Sodium Potassium Chloride Carbon Dioxide Anion Gap BUN Creatinine Estim Creat Clear Calc Estimated GFR POC Glucose 134 H 114 88 Random Glucose Lactic Acid Calcium Phosphorus Magnesium Total Bilirubin Direct Bilirubin AST ALT Alkaline Phosphatase Ammonia C-Reactive Protein Total Protein Albumin Random Vancomycin 08/26/24 08/26/24 08/26/24 07:00 08:49 10:06 WBC 16.4 H RBC 4.62 Hgb 10.7 L Hct 33.6 L MCV 72.7 L MCH 23.2 L MCHC 31.8 RDW 18.8 H Plt Count 178 MPV Not Reportable Immature Gran % (Auto) 0.7 H Neut % (Auto) 82.8 H Lymph % (Auto) 6.7 L [place] % (Auto) 8.6 Eos % (Auto) 1.0 Baso % (Auto) 0.2 Lymph # (Auto) 1.1 L [place] # (Auto) 1.4 H Eos # (Auto) 0.2 Baso # (Auto) 0.0 Abs Immat Gran (auto) 0.12 H Absolute Neuts (auto) 13.5 H Absolute Nucleated RBC 0.000 Nucleated RBC % (auto) 0.0 VBG pH VBG pCO2 VBG pO2 VBG HCO3 VBG O2 Saturation VBG Base Excess Sodium 132 L Potassium 6.1 H* Chloride 91 L Carbon Dioxide 24 Anion Gap 23 H BUN 64 H Creatinine 7.92 H* Estim Creat Clear Calc 8.1 Estimated GFR 7 POC Glucose 80 97 Random Glucose 66 Lactic Acid Calcium 8.9 Phosphorus 8.9 H Magnesium Total Bilirubin Direct Bilirubin AST ALT Alkaline Phosphatase Ammonia C-Reactive Protein Total Protein Albumin Random Vancomycin 08/26/24 08/26/24 08/26/24 15:25 16:57 19:16 WBC RBC Hgb Hct MCV MCH MCHC RDW Plt Count MPV Immature Gran % (Auto) Neut % (Auto) Lymph % (Auto) [place] % (Auto) Eos % (Auto) Baso % (Auto) Lymph # (Auto) [place] # (Auto) Eos # (Auto) Baso # (Auto) Abs Immat Gran (auto) Absolute Neuts (auto) Absolute Nucleated RBC Nucleated RBC % (auto) VBG pH VBG pCO2 VBG pO2 VBG HCO3 VBG O2 Saturation VBG Base Excess Sodium Potassium Chloride Carbon Dioxide Anion Gap BUN Creatinine Estim Creat Clear Calc Estimated GFR POC Glucose 127 H 131 H Random Glucose Lactic Acid Calcium Phosphorus Magnesium Total Bilirubin Direct Bilirubin AST ALT Alkaline Phosphatase Ammonia C-Reactive Protein Total Protein Albumin Random Vancomycin 12.3 L 08/26/24 08/26/24 08/27/24 20:07 22:56 01:20 WBC RBC Hgb Hct MCV MCH MCHC RDW Plt Count MPV Immature Gran % (Auto) Neut % (Auto) Lymph % (Auto) [place] % (Auto) Eos % (Auto) Baso % (Auto) Lymph # (Auto) [place] # (Auto) Eos # (Auto) Baso # (Auto) Abs Immat Gran (auto) Absolute Neuts (auto) Absolute Nucleated RBC Nucleated RBC % (auto) VBG pH 7.41 VBG pCO2 51 VBG pO2 73 VBG HCO3 33 H VBG O2 Saturation 92.0 VBG Base Excess 7.1 Sodium Potassium Chloride Carbon Dioxide Anion Gap BUN Creatinine Estim Creat Clear Calc Estimated GFR POC Glucose 121 H 95 Random Glucose Lactic Acid Calcium Phosphorus Magnesium Total Bilirubin Direct Bilirubin AST ALT Alkaline Phosphatase Ammonia C-Reactive Protein Total Protein Albumin Random Vancomycin 08/27/24 08/27/24 08/27/24 03:11 06:07 07:02 WBC 14.6 H RBC 4.55 L Hgb 10.4 L Hct 33.1 L MCV 72.7 L MCH 22.9 L MCHC 31.4 RDW 18.8 H Plt Count 189 MPV Not Reportable Immature Gran % (Auto) Neut % (Auto) Lymph % (Auto) [place] % (Auto) Eos % (Auto) Baso % (Auto) Lymph # (Auto) [place] # (Auto) Eos # (Auto) Baso # (Auto) Abs Immat Gran (auto) Absolute Neuts (auto) Absolute Nucleated RBC 0.000 Nucleated RBC % (auto) 0.0 VBG pH VBG pCO2 VBG pO2 VBG HCO3 VBG O2 Saturation VBG Base Excess Sodium 136 Potassium 4.5 D Chloride 96 Carbon Dioxide 25 Anion Gap 20 BUN 37 H Creatinine 5.19 H* Estim Creat Clear Calc 12.4 Estimated GFR 11 POC Glucose 90 75 Random Glucose 76 Lactic Acid Calcium 9.2 Phosphorus Magnesium Total Bilirubin Direct Bilirubin AST ALT Alkaline Phosphatase Ammonia C-Reactive Protein Total Protein Albumin Random Vancomycin 08/27/24 08/27/24 08/27/24 08:36 12:31 16:15 WBC RBC Hgb Hct MCV MCH MCHC RDW Plt Count MPV Immature Gran % (Auto) Neut % (Auto) Lymph % (Auto) [place] % (Auto) Eos % (Auto) Baso % (Auto) Lymph # (Auto) [place] # (Auto) Eos # (Auto) Baso # (Auto) Abs Immat Gran (auto) Absolute Neuts (auto) Absolute Nucleated RBC Nucleated RBC % (auto) VBG pH VBG pCO2 VBG pO2 VBG HCO3 VBG O2 Saturation VBG Base Excess Sodium Potassium Chloride Carbon Dioxide Anion Gap BUN Creatinine Estim Creat Clear Calc Estimated GFR POC Glucose 166 H 101 118 H Random Glucose Lactic Acid Calcium Phosphorus Magnesium Total Bilirubin Direct Bilirubin AST ALT Alkaline Phosphatase Ammonia C-Reactive Protein Total Protein Albumin Random Vancomycin 08/27/24 08/27/24 08/28/24 19:41 20:57 01:19 WBC RBC Hgb Hct MCV MCH MCHC RDW Plt Count MPV Immature Gran % (Auto) Neut % (Auto) Lymph % (Auto) [place] % (Auto) Eos % (Auto) Baso % (Auto) Lymph # (Auto) [place] # (Auto) Eos # (Auto) Baso # (Auto) Abs Immat Gran (auto) Absolute Neuts (auto) Absolute Nucleated RBC Nucleated RBC % (auto) VBG pH VBG pCO2 VBG pO2 VBG HCO3 VBG O2 Saturation VBG Base Excess Sodium Potassium Chloride Carbon Dioxide Anion Gap BUN Creatinine Estim Creat Clear Calc Estimated GFR POC Glucose 224 H 222 H 278 H Random Glucose Lactic Acid Calcium Phosphorus Magnesium Total Bilirubin Direct Bilirubin AST ALT Alkaline Phosphatase Ammonia C-Reactive Protein Total Protein Albumin Random Vancomycin 08/28/24 08/28/24 08/28/24 01:39 04:28 07:05 WBC 15.0 H RBC 4.59 L Hgb 10.5 L Hct 33.8 L MCV 73.6 L MCH 22.9 L MCHC 31.1 RDW 18.8 H Plt Count 218 MPV Not Reportable Immature Gran % (Auto) Neut % (Auto) Lymph % (Auto) [place] % (Auto) Eos % (Auto) Baso % (Auto) Lymph # (Auto) [place] # (Auto) Eos # (Auto) Baso # (Auto) Abs Immat Gran (auto) Absolute Neuts (auto) Absolute Nucleated RBC 0.000 Nucleated RBC % (auto) 0.0 VBG pH VBG pCO2 VBG pO2 VBG HCO3 VBG O2 Saturation VBG Base Excess Sodium 137 Potassium 5.0 Chloride 97 Carbon Dioxide 23 Anion Gap 22 H BUN 56 H Creatinine 7.02 H* Estim Creat Clear Calc 9.1 Estimated GFR 8 POC Glucose 267 H 209 H Random Glucose 243 H Lactic Acid Calcium 8.9 Phosphorus 10.4 H Magnesium Total Bilirubin Direct Bilirubin AST ALT Alkaline Phosphatase Ammonia C-Reactive Protein Total Protein Albumin Random Vancomycin 08/28/24 08/28/24 08/28/24 07:29 11:23 16:15 WBC RBC Hgb Hct MCV MCH MCHC RDW Plt Count MPV Immature Gran % (Auto) Neut % (Auto) Lymph % (Auto) [place] % (Auto) Eos % (Auto) Baso % (Auto) Lymph # (Auto) [place] # (Auto) Eos # (Auto) Baso # (Auto) Abs Immat Gran (auto) Absolute Neuts (auto) Absolute Nucleated RBC Nucleated RBC % (auto) VBG pH VBG pCO2 VBG pO2 VBG HCO3 VBG O2 Saturation VBG Base Excess Sodium Potassium Chloride Carbon Dioxide Anion Gap BUN Creatinine Estim Creat Clear Calc Estimated GFR POC Glucose 230 H 224 H 170 H Random Glucose Lactic Acid Calcium Phosphorus Magnesium Total Bilirubin Direct Bilirubin AST ALT Alkaline Phosphatase Ammonia C-Reactive Protein Total Protein Albumin Random Vancomycin 08/28/24 08/28/24 08/28/24 18:16 20:08 23:34 WBC RBC Hgb Hct MCV MCH MCHC RDW Plt Count MPV Immature Gran % (Auto) Neut % (Auto) Lymph % (Auto) [place] % (Auto) Eos % (Auto) Baso % (Auto) Lymph # (Auto) [place] # (Auto) Eos # (Auto) Baso # (Auto) Abs Immat Gran (auto) Absolute Neuts (auto) Absolute Nucleated RBC Nucleated RBC % (auto) VBG pH VBG pCO2 VBG pO2 VBG HCO3 VBG O2 Saturation VBG Base Excess Sodium Potassium Chloride Carbon Dioxide Anion Gap BUN Creatinine Estim Creat Clear Calc Estimated GFR POC Glucose 268 H 181 H Random Glucose Lactic Acid Calcium Phosphorus Magnesium Total Bilirubin Direct Bilirubin AST ALT Alkaline Phosphatase Ammonia C-Reactive Protein Total Protein Albumin Random Vancomycin 12.7 L 08/29/24 08/29/24 08/29/24 03:37 06:17 07:22 WBC 13.7 H RBC 4.64 Hgb 10.4 L Hct 34.3 L MCV 73.9 L MCH 22.4 L MCHC 30.3 L RDW 18.8 H Plt Count 241 MPV Not Reportable Immature Gran % (Auto) Neut % (Auto) Lymph % (Auto) [place] % (Auto) Eos % (Auto) Baso % (Auto) Lymph # (Auto) [place] # (Auto) Eos # (Auto) Baso # (Auto) Abs Immat Gran (auto) Absolute Neuts (auto) Absolute Nucleated RBC 0.000 Nucleated RBC % (auto) 0.0 VBG pH VBG pCO2 VBG pO2 VBG HCO3 VBG O2 Saturation VBG Base Excess Sodium 138 Potassium 4.3 Chloride 99 Carbon Dioxide 24 Anion Gap 19 BUN 35 H Creatinine 4.94 H* Estim Creat Clear Calc 13.0 Estimated GFR 12 POC Glucose 186 H 137 H Random Glucose 152 H Lactic Acid Calcium 8.8 Phosphorus Magnesium Total Bilirubin Direct Bilirubin AST ALT Alkaline Phosphatase Ammonia C-Reactive Protein Total Protein Albumin Random Vancomycin 08/29/24 08/29/24 08/29/24 11:56 15:31 19:46 WBC RBC Hgb Hct MCV MCH MCHC RDW Plt Count MPV Immature Gran % (Auto) Neut % (Auto) Lymph % (Auto) [place] % (Auto) Eos % (Auto) Baso % (Auto) Lymph # (Auto) [place] # (Auto) Eos # (Auto) Baso # (Auto) Abs Immat Gran (auto) Absolute Neuts (auto) Absolute Nucleated RBC Nucleated RBC % (auto) VBG pH VBG pCO2 VBG pO2 VBG HCO3 VBG O2 Saturation VBG Base Excess Sodium Potassium Chloride Carbon Dioxide Anion Gap BUN Creatinine Estim Creat Clear Calc Estimated GFR POC Glucose 236 H 161 H 204 H Random Glucose Lactic Acid Calcium Phosphorus Magnesium Total Bilirubin Direct Bilirubin AST ALT Alkaline Phosphatase Ammonia C-Reactive Protein Total Protein Albumin Random Vancomycin 08/30/24 08/30/24 08/30/24 03:14 06:26 08:10 WBC 14.5 H RBC 4.84 Hgb 11.1 L Hct 35.5 L MCV 73.3 L MCH 22.9 L MCHC 31.3 RDW 18.4 H Plt Count 261 MPV Not Reportable Immature Gran % (Auto) Neut % (Auto) Lymph % (Auto) [place] % (Auto) Eos % (Auto) Baso % (Auto) Lymph # (Auto) [place] # (Auto) Eos # (Auto) Baso # (Auto) Abs Immat Gran (auto) Absolute Neuts (auto) Absolute Nucleated RBC 0.000 Nucleated RBC % (auto) 0.0 VBG pH VBG pCO2 VBG pO2 VBG HCO3 VBG O2 Saturation VBG Base Excess Sodium 135 Potassium 4.4 Chloride 97 Carbon Dioxide 24 Anion Gap 18 BUN 51 H Creatinine 6.37 H* Estim Creat Clear Calc 10.1 Estimated GFR 9 POC Glucose 167 H 127 H Random Glucose 145 H Lactic Acid Calcium 8.6 Phosphorus Magnesium Total Bilirubin Direct Bilirubin AST ALT Alkaline Phosphatase Ammonia C-Reactive Protein Total Protein Albumin Random Vancomycin 08/30/24 08/30/24 08/30/24 14:50 18:18 20:39 WBC RBC Hgb Hct MCV MCH MCHC RDW Plt Count MPV Immature Gran % (Auto) Neut % (Auto) Lymph % (Auto) [place] % (Auto) Eos % (Auto) Baso % (Auto) Lymph # (Auto) [place] # (Auto) Eos # (Auto) Baso # (Auto) Abs Immat Gran (auto) Absolute Neuts (auto) Absolute Nucleated RBC Nucleated RBC % (auto) VBG pH VBG pCO2 VBG pO2 VBG HCO3 VBG O2 Saturation VBG Base Excess Sodium Potassium Chloride Carbon Dioxide Anion Gap BUN Creatinine Estim Creat Clear Calc Estimated GFR POC Glucose 126 H 415 H* Random Glucose Lactic Acid Calcium Phosphorus Magnesium Total Bilirubin Direct Bilirubin AST ALT Alkaline Phosphatase Ammonia C-Reactive Protein Total Protein Albumin Random Vancomycin 16.6 08/31/24 08/31/24 08/31/24 00:03 03:41 06:39 WBC 18.1 H RBC 4.77 Hgb 10.9 L Hct 34.8 L MCV 73.0 L MCH 22.9 L MCHC 31.3 RDW 18.5 H Plt Count 296 MPV 10.8 Immature Gran % (Auto) Neut % (Auto) Lymph % (Auto) [place] % (Auto) Eos % (Auto) Baso % (Auto) Lymph # (Auto) [place] # (Auto) Eos # (Auto) Baso # (Auto) Abs Immat Gran (auto) Absolute Neuts (auto) Absolute Nucleated RBC 0.000 Nucleated RBC % (auto) 0.0 VBG pH VBG pCO2 VBG pO2 VBG HCO3 VBG O2 Saturation VBG Base Excess Sodium 140 Potassium 4.9 Chloride 102 Carbon Dioxide 23 Anion Gap 20 BUN 54 H Creatinine 5.94 H* Estim Creat Clear Calc 10.8 Estimated GFR 10 POC Glucose 276 H 281 H Random Glucose 334 H Lactic Acid Calcium 8.6 Phosphorus Magnesium Total Bilirubin Direct Bilirubin AST ALT Alkaline Phosphatase Ammonia C-Reactive Protein Total Protein Albumin Random Vancomycin 08/31/24 08/31/24 08/31/24 07:26 11:20 15:32 WBC RBC Hgb Hct MCV MCH MCHC RDW Plt Count MPV Immature Gran % (Auto) Neut % (Auto) Lymph % (Auto) [place] % (Auto) Eos % (Auto) Baso % (Auto) Lymph # (Auto) [place] # (Auto) Eos # (Auto) Baso # (Auto) Abs Immat Gran (auto) Absolute Neuts (auto) Absolute Nucleated RBC Nucleated RBC % (auto) VBG pH VBG pCO2 VBG pO2 VBG HCO3 VBG O2 Saturation VBG Base Excess Sodium Potassium Chloride Carbon Dioxide Anion Gap BUN Creatinine Estim Creat Clear Calc Estimated GFR POC Glucose 296 H 169 H 197 H Random Glucose Lactic Acid Calcium Phosphorus Magnesium Total Bilirubin Direct Bilirubin AST ALT Alkaline Phosphatase Ammonia C-Reactive Protein Total Protein Albumin Random Vancomycin 08/31/24 09/01/24 09/01/24 21:11 06:23 07:37 WBC 15.9 H RBC 4.66 Hgb 10.7 L Hct 33.8 L MCV 72.5 L MCH 23.0 L MCHC 31.7 RDW 18.2 H Plt Count 314 MPV 10.5 Immature Gran % (Auto) Neut % (Auto) Lymph % (Auto) [place] % (Auto) Eos % (Auto) Baso % (Auto) Lymph # (Auto) [place] # (Auto) Eos # (Auto) Baso # (Auto) Abs Immat Gran (auto) Absolute Neuts (auto) Absolute Nucleated RBC 0.000 Nucleated RBC % (auto) 0.0 VBG pH VBG pCO2 VBG pO2 VBG HCO3 VBG O2 Saturation VBG Base Excess Sodium 137 Potassium 4.7 Chloride 101 Carbon Dioxide 20 L Anion Gap 21 H BUN 74 H Creatinine 7.21 H* Estim Creat Clear Calc 8.9 Estimated GFR 8 POC Glucose 228 H 102 Random Glucose 119 H Lactic Acid Calcium 8.8 Phosphorus Magnesium Total Bilirubin Direct Bilirubin AST ALT Alkaline Phosphatase Ammonia C-Reactive Protein Total Protein Albumin Random Vancomycin Airway Mallampati Class: III TM Dist: >3cm Neck ROM: Full Assessment and Plan Assessment Anesthesia Assessment: Anesthesia Plan Discussed and Chart Reviewed Final Anesthetic Review Family History of Problems with Anesthesia: No History of Problems with Anesthesia: No NPO: Yes ASA Class: IV Final Preanesthetic Review: No Changes in Pt Med Stat, Meds/Allgs Chart Reviewed, Consent Obtained/Reviewed and Anes Risks/Benef Reviewed Patient Risk: High Procedure Risk: Low Anesthetic Plan Anesthetic Plan: MAC: and Regional Block Disposition: Standard PACU
--- NOTE | 2024-09-01 10:49 | P.CONAN_ITS ---
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 (Acute) Encephalopathy (Acute) Necrosis of finger (Acute) Numbness and tingling in right hand (Acute) AKA stump complication (Acute) Cellulitis (Acute) ESRD needing dialysis (Acute) Infection of toe (Acute) Pleural effusion (Acute) Acute hypokalemia (Acute) Osteomyelitis (Acute) Somatization disorder (Acute) Trapped lung (Acute) Recurrent pleural effusion on right (Chronic) Exudative pleural effusion (Acute) Hyponatremia (Acute) Hyperkalemia (Acute) Type 2 diabetes mellitus (Acute) Dry gangrene (Acute) PVD (peripheral vascular disease) (Acute) Postop check (Acute) Acute on chronic systolic and diastolic heart failure, NYHA class 3 (Chronic) Past Medical History Medical History Above knee amputation of right lower extremity Left ventricular systolic dysfunction (LVSD) PVD (peripheral vascular disease) Postop check Acute pericardial effusion Right sided weakness Dehiscence of wound Peripheral arterial disease Dry gangrene Cellulitis of right foot HFrEF (heart failure with reduced ejection fraction) Chronic combined systolic and diastolic CHF (congestive heart failure) Chronic pericardial effusion Arthritis Asthma Restless leg syndrome Acute on chronic systolic and diastolic heart failure, NYHA class 3 Anemia Occlusive thrombus Pulmonary edema ROBERT (obstructive sleep apnea) Type 2 diabetes mellitus Hyperlipidemia Hypertension A-V fistula ESRD on dialysis Falling Family History Family History Father No problems noted. Mother No problems noted. Family history of problems with anesthesia: No Surgical History Surgical History Status post creation of pericardial window Hx of right BKA History of transmetatarsal amputation of foot Status post transmetatarsal amputation of right foot Postop check History of surgery H/O colonoscopy Recurrent pleural effusion Pleural effusion on right (07/13/23) History of Problems with Anesthesia: No Social History Social History Household Members: Family Household Members Other:: son Housing: House Are you a primary healthcare consulting manager to a significant other at home: No Do you presently have visiting nurse or other home services: No Unable to assess alcohol history related to: Unknown Alcohol intake: former Comment: COUNTS CORRECT Patient Tobacco Use Status: Former Tobacco user Tobacco use type: Cigarette Second Hand Smoke Exposure: No Advance Directives Date on File: 10/04/23 service: No Current occupational status: disabled 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 Meds Allergies Allergy/AdvReac Type Severity Reaction Status Date / Time Iodinated Contrast Media Allergy Severe Facial Verified 08/22/24 11:22 (Contrast Dye) Swelling hydralazine AdvReac Severe vasculitis Verified 08/22/24 11:22 Active Medications: Current Medications Acetaminophen (Acetaminophen 325 Mg Tablet) 650 mg PO Q6H PRN PRN Reason: Pain, Mild 1-3,fever,headache Last Admin: 08/25/24 12:20 Dose: 650 mg Albuterol Sulfate (Albuterol Sulfate 90 Mcg 8 Gm Inhaler) 2 puff INHALE Q4H PRN PRN Reason: Wheezing Allopurinol (Allopurinol 100 Mg Tablet) 100 mg PO MOWEFR@1600 [facility] Last Admin: 08/30/24 17:04 Dose: Not Given Amlodipine Besylate (Amlodipine Besylate 10 Mg Tablet) 10 mg PO DAILY [facility]; Protocol Last Admin: 09/01/24 09:49 Dose: 10 mg Aspirin (Aspirin Enteric Coated 81 Mg Tablet.) 81 mg PO MOWEFR@1600 [facility] Last Admin: 08/30/24 17:04 Dose: Not Given Aspirin (Aspirin Enteric Coated 81 Mg Tablet.) 81 mg PO SUTUTHSA@0900 [facility] Last Admin: 09/01/24 08:29 Dose: Not Given Atorvastatin Calcium (Atorvastatin Calcium 40 Mg Tablet) 40 mg PO MOWEFR@1600 [facility] Last Admin: 08/30/24 17:04 Dose: Not Given Atorvastatin Calcium (Atorvastatin Calcium 40 Mg Tablet) 40 mg PO SUTUTHSA@0900 [facility] Last Admin: 09/01/24 08:29 Dose: Not Given Calcium Carbonate (Calcium Carbonate 750 Mg Tab.Chew) 750 mg PO Q4H PRN PRN Reason: Heartburn Carvedilol (Carvedilol 12.5 Mg Tablet) 12.5 mg PO BID [facility]; Protocol Last Admin: 09/01/24 08:29 Dose: Not Given Dextrose (Dextrose 50 % 25 Gm/50 Ml Syringe) 25 gm IVPUSH Q15M PRN; Protocol PRN Reason: per Hypoglycemia Standing Ord. Last Admin: 08/27/24 07:59 Dose: 25 gm Docusate Sodium (Docusate Sodium 100 Mg Capsule) 100 mg PO DAILY [facility] Last Admin: 09/01/24 09:49 Dose: 100 mg Doxazosin Mesylate (Doxazosin Mesylate 2 Mg Tablet) 4 mg PO BEDTIME [facility]; Protocol Last Admin: 08/31/24 20:18 Dose: 4 mg Fluticasone/Umeclidinium/Vilanterol (Fluticasone/Umeclidinium/Vilanterol 100/62.5 Blst.W.Dev) 1 puff INHALE RDAILY [facility] Last Admin: 09/01/24 08:12 Dose: 1 puff Furosemide (Furosemide 40 Mg Tablet) 80 mg PO MOWEFR@1600 [facility]; Protocol Last Admin: 08/30/24 17:04 Dose: Not Given Furosemide (Furosemide 40 Mg Tablet) 80 mg PO SUTUTHSA@0900 [facility]; Protocol Last Admin: 09/01/24 08:30 Dose: Not Given Glucose (Glucose Gel 15 Gm Gel..Gram.) 15 gm PO Q15M PRN PRN Reason: per Hypoglycemia Standing Ord. Last Admin: 08/25/24 04:50 Dose: 15 gm Heparin Sodium (Porcine) (Heparin Sodium,Porcine 5,000 Unit/Ml Vial) 5,000 unit SUBCUT Q12H [facility] On Hold: 08/30/24 00:00 Last Admin: 08/29/24 21:04 Dose: 5,000 unit Heparin Sodium (Porcine) (Heparin Sodium,Porcine 5,000 Unit/Ml Vial) 5,000 unit SUBCUT Q12H [facility] Hydrocortisone (Hydrocortisone 1 % Ointment 28.35 Gm Tube) 1 appl TOPICAL BID PRN; Protocol PRN Reason: itching Vancomycin HCl 500 mg/ Sodium (Chloride) 110 mls @ 110 mls/hr IV ONCE ONE Stop: 08/23/24 20:59 Cefepime HCl 1 gm/ Sodium (Chloride) 50 mls @ 100 mls/hr IV Q24H [facility] Insulin Glargine (Insulin Glargine,Hum.Rec.Anlog 100 Unit/Ml 10 Ml Vial) 10 unit SUBCUT BEDTIME [facility] Last Admin: 08/31/24 21:35 Dose: 10 unit Insulin Human Lispro (Insulin Lispro 100 Unit/Ml 3 Ml Vial) 0 unit SUBCUT QIDACHS [facility]; Protocol Last Admin: 09/01/24 08:16 Dose: Not Given Levetiracetam (Levetiracetam 1,000 Mg Tablet) 1,000 mg PO BID [facility] Last Admin: 09/01/24 09:49 Dose: 1,000 mg Losartan Potassium (Losartan Potassium 25 Mg Tablet) 25 mg PO MOWEFR@1600 [facility]; Protocol Last Admin: 08/30/24 17:05 Dose: Not Given Losartan Potassium (Losartan Potassium 25 Mg Tablet) 25 mg PO SUTUTHSA@0900 [facility]; Protocol Last Admin: 09/01/24 08:30 Dose: Not Given Magnesium Hydroxide (Milk Of Magnesia 30 Ml Oral.Susp) 30 ml PO DAILY PRN PRN Reason: Constipation Melatonin (Melatonin 3 Mg Tablet) 6 mg PO BEDTIME PRN PRN Reason: Insomnia Last Admin: 08/28/24 22:00 Dose: 6 mg Omeprazole (Omeprazole 20 Mg Capsule.Dr) 20 mg PO DAILY@0630 [facility] Last Admin: 09/01/24 05:00 Dose: Not Given Ondansetron HCl (Ondansetron Hcl 4 Mg/2 Ml Vial) 4 mg IVPUSH Q8H PRN PRN Reason: Nausea and Vomiting Oxycodone HCl (Oxycodone Hcl Immed Release 5 Mg Tablet) 5 mg PO Q6H PRN PRN Reason: Pain, Severe (Pain Scale 7-10) Last Admin: 08/30/24 09:32 Dose: 5 mg Pharmacy Consult (Consult Rx Vancomycin Dosing) 1 each MISCELLANE DAILY PRN PRN Reason: Consult order Pregabalin (Pregabalin 75 Mg Capsule) 75 mg PO DAILY [facility] Last Admin: 09/01/24 09:49 Dose: 75 mg Sevelamer Carbonate (Sevelamer Carbonate Tablet 800 Mg Tablet) 800 mg PO TIDWM [facility] Last Admin: 09/01/24 09:51 Dose: 800 mg Sodium Chloride (0.9 % Sodium Chloride Flush 3 Ml Syringe) [facility] Last Admin: 09/01/24 09:45 Dose: 3 ml Home Medications ?Medication ?Instructions ?Recorded ?Confirmed ?Last Taken ?Type allopurinol 100 mg tablet 100 mg PO MOWEFR@1600 08/22/24 08/21/24 History atorvastatin 40 mg tablet 40 mg PO SUTUTHSA@0900 04/1908/22/24 08/21/24 History doxazosin 4 mg tablet 4 mg PO BEDTIME 04/19/2208/21/24 History furosemide 80 mg tablet 80 mg PO SUTUTHSA@0900 04/1908/22/24 08/21/24 History omeprazole 20 mg capsule,delayed 20 mg PO DAILY@0630 0 04/19/22 08/22/24 08/21/24 History release aspirin 81 mg tablet,delayed 81 mg PO SUTUTHSA@0900 08/22/24 08/21/24 History release pregabalin 75 mg capsule 75 mg PO DAILY 06/20/2308/0408/21/24 History aspirin 81 mg tablet,delayed 81 mg PO MOWEFR@1600 03/0808/22/24 08/21/24 History release atorvastatin 40 mg tablet 40 mg PO MOWEFR@159908/22/24 08/21/24 Histor y fluticasone fur. 100 mcg-umeclid 1 inh inhalation FELICIA Y 04/05/24 08/22/24 08/21/24 History 62.5 mcg-vilant 25 mcg inhalat.powder (Trelegy Ellipta) furosemide 80 mg tablet 80 mg PO MOWEFR@1600 5 08/22/24 08/21/24 History losartan 25 mg tablet 25 mg PO MOWEFR@159908/22/24 08/21/24 History losartan 25 mg tablet 25 mg PO SUTUTHSA@0900 04/0508/22/24 08/21/24 History insulin glargine 100 unit/mL (3 22 unit subcut BEDTIME 05/01/24 08/22/24 08/21/24 History mL) subcutaneous pen (Lantus Solostar U-100 Insulin) acetaminophen 500 mg tablet 1,000 mg PO Q8H PRN Pain 0 05/26/24 08/22/24 Unknown History amlodipine 10 mg tablet 10 mg PO DAILY 05/26/2408/0408/21/24 History calcium carbonate (Calcium 500) 500 mg PO TID 05/26/24 08/22/24 08/21/24 History docusate sodium 100 mg capsule 100 mg PO DAILY 5 08/22/24 08/21/24 History insulin lispro 100 unit/mL See Rx Instructions .Route .COMPLEX 05/26/24 08/22/24 08/21/24 History subcutaneous solution (Humalog U-100 Insulin) albuterol sulfate 90 mcg/actuation 2 puff inhalation Q 4H PRN wheezing 08/22/24 08/22/24 Unknown History aerosol inhaler (Ventolin HFA) carvedilol 6.25 mg tablet 6.25 mg PO BID 08/22/2408/04 Unknown History ipratropium 0.5 mg-albuterol 3 mg 3 ml inhalation QID PRN Shortness 08/22/24 08/22/24 08/21/24 History (2.5 mg base)/3 mL nebulization Of Breath soln sucroferric oxyhydroxide 500 mg 500 mg PO TID 08/22/24 08/22/24 08/21/24 History chewable tablet (Velphoro) Exam Height,Weight and Vital Signs: Height 5 ft 4 in Weight 72.2 kg Last Vital Signs Temp 97.5 F 09/01/24 09:44 Pulse 64 09/01/24 09:44 Resp 16 09/01/24 09:44 BP 141/66 H 09/01/24 09:44 Pulse Ox 98 09/01/24 09:44 O2 Del Method Room Air 09/01/24 09:44 O2 Flow Rate 2 09/01/24 09:28 Pertinent Lab Results Pertinent Lab Results: Laboratory Tests 08/22/24 08/22/24 08/22/24 11:41 14:20 16:08 WBC 16.3 H RBC 4.98 D Hgb 11.4 L Hct 37.1 L MCV 74.5 L MCH 22.9 L MCHC 30.7 L RDW 19.9 H Plt Count 194 MPV Not Reportable Immature Gran % (Auto) 0.4 Neut % (Auto) 86.4 H Lymph % (Auto) 7.2 L [place] % (Auto) 5.5 Eos % (Auto) 0.3 Baso % (Auto) 0.2 Lymph # (Auto) 1.2 [place] # (Auto) 0.9 Eos # (Auto) 0.1 Baso # (Auto) 0.0 Abs Immat Gran (auto) 0.07 H Absolute Neuts (auto) 14.1 H Absolute Nucleated RBC 0.030 H Nucleated RBC % (auto) 0.2 VBG pH VBG pCO2 VBG pO2 VBG HCO3 VBG O2 Saturation VBG Base Excess Sodium 137 Potassium 5.0 Chloride 96 Carbon Dioxide 27 Anion Gap 19 BUN 54 H Creatinine 6.03 H* Estim Creat Clear Calc 10.8 Estimated GFR 9 POC Glucose 381 H* Random Glucose 392 H* Lactic Acid 1.6 Calcium 8.6 Phosphorus Magnesium 1.6 Total Bilirubin 0.5 Direct Bilirubin AST 23 ALT 24 Alkaline Phosphatase 159 H Ammonia C-Reactive Protein 16.41 H Total Protein 7.1 Albumin 3.5 Random Vancomycin 08/22/24 08/22/24 08/22/24 17:11 18:49 21:05 WBC RBC Hgb Hct MCV MCH MCHC RDW Plt Count MPV Immature Gran % (Auto) Neut % (Auto) Lymph % (Auto) [place] % (Auto) Eos % (Auto) Baso % (Auto) Lymph # (Auto) [place] # (Auto) Eos # (Auto) Baso # (Auto) Abs Immat Gran (auto) Absolute Neuts (auto) Absolute Nucleated RBC Nucleated RBC % (auto) VBG pH VBG pCO2 VBG pO2 VBG HCO3 VBG O2 Saturation VBG Base Excess Sodium Potassium Chloride Carbon Dioxide Anion Gap BUN Creatinine Estim Creat Clear Calc Estimated GFR POC Glucose 405 H* 179 H 82 Random Glucose Lactic Acid Calcium Phosphorus Magnesium Total Bilirubin Direct Bilirubin AST ALT Alkaline Phosphatase Ammonia C-Reactive Protein Total Protein Albumin Random Vancomycin 08/23/24 08/23/24 08/23/24 02:46 06:33 06:55 WBC 15.8 H RBC 4.77 Hgb 11.0 L Hct 35.1 L MCV 73.6 L MCH 23.1 L MCHC 31.3 RDW 19.4 H Plt Count 183 MPV Not Reportable Immature Gran % (Auto) Neut % (Auto) Lymph % (Auto) [place] % (Auto) Eos % (Auto) Baso % (Auto) Lymph # (Auto) [place] # (Auto) Eos # (Auto) Baso # (Auto) Abs Immat Gran (auto) Absolute Neuts (auto) Absolute Nucleated RBC 0.020 H Nucleated RBC % (auto) 0.1 VBG pH VBG pCO2 VBG pO2 VBG HCO3 VBG O2 Saturation VBG Base Excess Sodium Potassium Chloride Carbon Dioxide Anion Gap BUN Creatinine Estim Creat Clear Calc Estimated GFR POC Glucose 184 H 192 H Random Glucose Lactic Acid Calcium Phosphorus Magnesium Total Bilirubin Direct Bilirubin AST ALT Alkaline Phosphatase Ammonia C-Reactive Protein Total Protein Albumin Random Vancomycin 08/23/24 08/23/24 08/23/24 10:48 11:49 16:05 WBC RBC Hgb Hct MCV MCH MCHC RDW Plt Count MPV Immature Gran % (Auto) Neut % (Auto) Lymph % (Auto) [place] % (Auto) Eos % (Auto) Baso % (Auto) Lymph # (Auto) [place] # (Auto) Eos # (Auto) Baso # (Auto) Abs Immat Gran (auto) Absolute Neuts (auto) Absolute Nucleated RBC Nucleated RBC % (auto) VBG pH VBG pCO2 VBG pO2 VBG HCO3 VBG O2 Saturation VBG Base Excess Sodium 136 Potassium 5.6 H Chloride 95 L Carbon Dioxide 25 Anion Gap 22 H BUN 70 H Creatinine 7.76 H* Estim Creat Clear Calc 8.2 Estimated GFR 7 POC Glucose 174 H 190 H Random Glucose 183 H Lactic Acid Calcium 8.6 Phosphorus 7.7 H Magnesium Total Bilirubin Direct Bilirubin AST ALT Alkaline Phosphatase Ammonia C-Reactive Protein Total Protein Albumin Random Vancomycin 08/23/24 08/24/24 08/24/24 20:34 06:33 10:09 WBC 15.9 H RBC 4.59 L Hgb 10.5 L Hct 33.8 L MCV 73.6 L MCH 22.9 L MCHC 31.1 RDW 19.4 H Plt Count 180 MPV Not Reportable Immature Gran % (Auto) 0.5 H Neut % (Auto) 85.0 H Lymph % (Auto) 5.2 L [place] % (Auto) 7.3 Eos % (Auto) 1.8 Baso % (Auto) 0.2 Lymph # (Auto) 0.8 L [place] # (Auto) 1.2 Eos # (Auto) 0.3 Baso # (Auto) 0.0 Abs Immat Gran (auto) 0.08 H Absolute Neuts (auto) 13.5 H Absolute Nucleated RBC 0.030 H Nucleated RBC % (auto) 0.2 VBG pH VBG pCO2 VBG pO2 VBG HCO3 VBG O2 Saturation VBG Base Excess Sodium 138 Potassium 4.5 Chloride 97 Carbon Dioxide 27 Anion Gap 19 BUN 56 H Creatinine 6.06 H* Estim Creat Clear Calc 10.6 Estimated GFR 9 POC Glucose 200 H 50 L* Random Glucose 84 Lactic Acid Calcium 8.6 Phosphorus Magnesium Total Bilirubin Direct Bilirubin AST ALT Alkaline Phosphatase Ammonia C-Reactive Protein Total Protein Albumin Random Vancomycin 08/24/24 08/24/24 08/24/24 10:37 10:47 10:58 WBC RBC Hgb Hct MCV MCH MCHC RDW Plt Count MPV Immature Gran % (Auto) Neut % (Auto) Lymph % (Auto) [place] % (Auto) Eos % (Auto) Baso % (Auto) Lymph # (Auto) [place] # (Auto) Eos # (Auto) Baso # (Auto) Abs Immat Gran (auto) Absolute Neuts (auto) Absolute Nucleated RBC Nucleated RBC % (auto) VBG pH VBG pCO2 VBG pO2 VBG HCO3 VBG O2 Saturation VBG Base Excess Sodium Potassium Chloride Carbon Dioxide Anion Gap BUN Creatinine Estim Creat Clear Calc Estimated GFR POC Glucose 88 101 Random Glucose Lactic Acid Calcium Phosphorus Magnesium Total Bilirubin Direct Bilirubin AST ALT Alkaline Phosphatase Ammonia C-Reactive Protein Total Protein Albumin Random Vancomycin 16.7 08/24/24 08/24/24 08/24/24 11:38 11:47 15:12 WBC RBC Hgb Hct MCV MCH MCHC RDW Plt Count MPV Immature Gran % (Auto) Neut % (Auto) Lymph % (Auto) [place] % (Auto) Eos % (Auto) Baso % (Auto) Lymph # (Auto) [place] # (Auto) Eos # (Auto) Baso # (Auto) Abs Immat Gran (auto) Absolute Neuts (auto) Absolute Nucleated RBC Nucleated RBC % (auto) VBG pH 7.38 VBG pCO2 60 VBG pO2 58 VBG HCO3 36 H VBG O2 Saturation 83.0 VBG Base Excess 9.0 Sodium 140 Potassium 4.1 Chloride 97 Carbon Dioxide 30 H Anion Gap 17 BUN 35 H Creatinine 4.61 H* Estim Creat Clear Calc 13.9 Estimated GFR 13 POC Glucose 63 Random Glucose 101 Lactic Acid Calcium 9.0 Phosphorus Magnesium Total Bilirubin 0.5 Direct Bilirubin 0.3 AST 18 ALT 19 Alkaline Phosphatase 143 H Ammonia 32 C-Reactive Protein Total Protein 7.0 Albumin 3.4 L Random Vancomycin 08/24/24 08/24/24 08/24/24 15:31 15:54 20:26 WBC RBC Hgb Hct MCV MCH MCHC RDW Plt Count MPV Immature Gran % (Auto) Neut % (Auto) Lymph % (Auto) [place] % (Auto) Eos % (Auto) Baso % (Auto) Lymph # (Auto) [place] # (Auto) Eos # (Auto) Baso # (Auto) Abs Immat Gran (auto) Absolute Neuts (auto) Absolute Nucleated RBC Nucleated RBC % (auto) VBG pH VBG pCO2 VBG pO2 VBG HCO3 VBG O2 Saturation VBG Base Excess Sodium Potassium Chloride Carbon Dioxide Anion Gap BUN Creatinine Estim Creat Clear Calc Estimated GFR POC Glucose 59 L* 85 100 Random Glucose Lactic Acid Calcium Phosphorus Magnesium Total Bilirubin Direct Bilirubin AST ALT Alkaline Phosphatase Ammonia C-Reactive Protein Total Protein Albumin Random Vancomycin 08/25/24 08/25/24 08/25/24 01:09 04:20 06:00 WBC RBC Hgb Hct MCV MCH MCHC RDW Plt Count MPV Immature Gran % (Auto) Neut % (Auto) Lymph % (Auto) [place] % (Auto) Eos % (Auto) Baso % (Auto) Lymph # (Auto) [place] # (Auto) Eos # (Auto) Baso # (Auto) Abs Immat Gran (auto) Absolute Neuts (auto) Absolute Nucleated RBC Nucleated RBC % (auto) VBG pH VBG pCO2 VBG pO2 VBG HCO3 VBG O2 Saturation VBG Base Excess Sodium Potassium Chloride Carbon Dioxide Anion Gap BUN Creatinine Estim Creat Clear Calc Estimated GFR POC Glucose 69 58 L* 102 Random Glucose Lactic Acid Calcium Phosphorus Magnesium Total Bilirubin Direct Bilirubin AST ALT Alkaline Phosphatase Ammonia C-Reactive Protein Total Protein Albumin Random Vancomycin 08/25/24 08/25/24 08/25/24 07:11 07:15 07:40 WBC 13.7 H RBC 4.57 L Hgb 10.6 L Hct 34.0 L MCV 74.4 L MCH 23.2 L MCHC 31.2 RDW 19.3 H Plt Count 164 MPV TNP Immature Gran % (Auto) 0.8 H Neut % (Auto) 81.0 H Lymph % (Auto) 8.6 L [place] % (Auto) 8.4 Eos % (Auto) 1.1 Baso % (Auto) 0.1 Lymph # (Auto) 1.2 [place] # (Auto) 1.2 Eos # (Auto) 0.2 Baso # (Auto) 0.0 Abs Immat Gran (auto) 0.11 H Absolute Neuts (auto) 11.1 H Absolute Nucleated RBC 0.030 H Nucleated RBC % (auto) 0.2 VBG pH 7.43 VBG pCO2 47 VBG pO2 64 VBG HCO3 31 H VBG O2 Saturation 88.0 VBG Base Excess 6.3 Sodium 134 L Potassium 5.3 H D Chloride 94 L Carbon Dioxide 27 Anion Gap 18 BUN 49 H Creatinine 5.96 H* Estim Creat Clear Calc 10.8 Estimated GFR 9 POC Glucose 95 Random Glucose 90 Lactic Acid Calcium 8.8 Phosphorus Magnesium Total Bilirubin Direct Bilirubin AST ALT Alkaline Phosphatase Ammonia C-Reactive Protein Total Protein Albumin Random Vancomycin 08/25/24 08/25/24 08/25/24 10:25 13:44 16:31 WBC RBC Hgb Hct MCV MCH MCHC RDW Plt Count MPV Immature Gran % (Auto) Neut % (Auto) Lymph % (Auto) [place] % (Auto) Eos % (Auto) Baso % (Auto) Lymph # (Auto) [place] # (Auto) Eos # (Auto) Baso # (Auto) Abs Immat Gran (auto) Absolute Neuts (auto) Absolute Nucleated RBC Nucleated RBC % (auto) VBG pH VBG pCO2 VBG pO2 VBG HCO3 VBG O2 Saturation VBG Base Excess Sodium Potassium Chloride Carbon Dioxide Anion Gap BUN Creatinine Estim Creat Clear Calc Estimated GFR POC Glucose 180 H 168 H 165 H Random Glucose Lactic Acid Calcium Phosphorus Magnesium Total Bilirubin Direct Bilirubin AST ALT Alkaline Phosphatase Ammonia C-Reactive Protein Total Protein Albumin Random Vancomycin 08/25/24 08/26/24 08/26/24 19:56 01:18 04:41 WBC RBC Hgb Hct MCV MCH MCHC RDW Plt Count MPV Immature Gran % (Auto) Neut % (Auto) Lymph % (Auto) [place] % (Auto) Eos % (Auto) Baso % (Auto) Lymph # (Auto) [place] # (Auto) Eos # (Auto) Baso # (Auto) Abs Immat Gran (auto) Absolute Neuts (auto) Absolute Nucleated RBC Nucleated RBC % (auto) VBG pH VBG pCO2 VBG pO2 VBG HCO3 VBG O2 Saturation VBG Base Excess Sodium Potassium Chloride Carbon Dioxide Anion Gap BUN Creatinine Estim Creat Clear Calc Estimated GFR POC Glucose 134 H 114 88 Random Glucose Lactic Acid Calcium Phosphorus Magnesium Total Bilirubin Direct Bilirubin AST ALT Alkaline Phosphatase Ammonia C-Reactive Protein Total Protein Albumin Random Vancomycin 08/26/24 08/26/24 08/26/24 07:00 08:49 10:06 WBC 16.4 H RBC 4.62 Hgb 10.7 L Hct 33.6 L MCV 72.7 L MCH 23.2 L MCHC 31.8 RDW 18.8 H Plt Count 178 MPV Not Reportable Immature Gran % (Auto) 0.7 H Neut % (Auto) 82.8 H Lymph % (Auto) 6.7 L [place] % (Auto) 8.6 Eos % (Auto) 1.0 Baso % (Auto) 0.2 Lymph # (Auto) 1.1 L [place] # (Auto) 1.4 H Eos # (Auto) 0.2 Baso # (Auto) 0.0 Abs Immat Gran (auto) 0.12 H Absolute Neuts (auto) 13.5 H Absolute Nucleated RBC 0.000 Nucleated RBC % (auto) 0.0 VBG pH VBG pCO2 VBG pO2 VBG HCO3 VBG O2 Saturation VBG Base Excess Sodium 132 L Potassium 6.1 H* Chloride 91 L Carbon Dioxide 24 Anion Gap 23 H BUN 64 H Creatinine 7.92 H* Estim Creat Clear Calc 8.1 Estimated GFR 7 POC Glucose 80 97 Random Glucose 66 Lactic Acid Calcium 8.9 Phosphorus 8.9 H Magnesium Total Bilirubin Direct Bilirubin AST ALT Alkaline Phosphatase Ammonia C-Reactive Protein Total Protein Albumin Random Vancomycin 08/26/24 08/26/24 08/26/24 15:25 16:57 19:16 WBC RBC Hgb Hct MCV MCH MCHC RDW Plt Count MPV Immature Gran % (Auto) Neut % (Auto) Lymph % (Auto) [place] % (Auto) Eos % (Auto) Baso % (Auto) Lymph # (Auto) [place] # (Auto) Eos # (Auto) Baso # (Auto) Abs Immat Gran (auto) Absolute Neuts (auto) Absolute Nucleated RBC Nucleated RBC % (auto) VBG pH VBG pCO2 VBG pO2 VBG HCO3 VBG O2 Saturation VBG Base Excess Sodium Potassium Chloride Carbon Dioxide Anion Gap BUN Creatinine Estim Creat Clear Calc Estimated GFR POC Glucose 127 H 131 H Random Glucose Lactic Acid Calcium Phosphorus Magnesium Total Bilirubin Direct Bilirubin AST ALT Alkaline Phosphatase Ammonia C-Reactive Protein Total Protein Albumin Random Vancomycin 12.3 L 08/26/24 08/26/24 08/27/24 20:07 22:56 01:20 WBC RBC Hgb Hct MCV MCH MCHC RDW Plt Count MPV Immature Gran % (Auto) Neut % (Auto) Lymph % (Auto) [place] % (Auto) Eos % (Auto) Baso % (Auto) Lymph # (Auto) [place] # (Auto) Eos # (Auto) Baso # (Auto) Abs Immat Gran (auto) Absolute Neuts (auto) Absolute Nucleated RBC Nucleated RBC % (auto) VBG pH 7.41 VBG pCO2 51 VBG pO2 73 VBG HCO3 33 H VBG O2 Saturation 92.0 VBG Base Excess 7.1 Sodium Potassium Chloride Carbon Dioxide Anion Gap BUN Creatinine Estim Creat Clear Calc Estimated GFR POC Glucose 121 H 95 Random Glucose Lactic Acid Calcium Phosphorus Magnesium Total Bilirubin Direct Bilirubin AST ALT Alkaline Phosphatase Ammonia C-Reactive Protein Total Protein Albumin Random Vancomycin 08/27/24 08/27/24 08/27/24 03:11 06:07 07:02 WBC 14.6 H RBC 4.55 L Hgb 10.4 L Hct 33.1 L MCV 72.7 L MCH 22.9 L MCHC 31.4 RDW 18.8 H Plt Count 189 MPV Not Reportable Immature Gran % (Auto) Neut % (Auto) Lymph % (Auto) [place] % (Auto) Eos % (Auto) Baso % (Auto) Lymph # (Auto) [place] # (Auto) Eos # (Auto) Baso # (Auto) Abs Immat Gran (auto) Absolute Neuts (auto) Absolute Nucleated RBC 0.000 Nucleated RBC % (auto) 0.0 VBG pH VBG pCO2 VBG pO2 VBG HCO3 VBG O2 Saturation VBG Base Excess Sodium 136 Potassium 4.5 D Chloride 96 Carbon Dioxide 25 Anion Gap 20 BUN 37 H Creatinine 5.19 H* Estim Creat Clear Calc 12.4 Estimated GFR 11 POC Glucose 90 75 Random Glucose 76 Lactic Acid Calcium 9.2 Phosphorus Magnesium Total Bilirubin Direct Bilirubin AST ALT Alkaline Phosphatase Ammonia C-Reactive Protein Total Protein Albumin Random Vancomycin 08/27/24 08/27/24 08/27/24 08:36 12:31 16:15 WBC RBC Hgb Hct MCV MCH MCHC RDW Plt Count MPV Immature Gran % (Auto) Neut % (Auto) Lymph % (Auto) [place] % (Auto) Eos % (Auto) Baso % (Auto) Lymph # (Auto) [place] # (Auto) Eos # (Auto) Baso # (Auto) Abs Immat Gran (auto) Absolute Neuts (auto) Absolute Nucleated RBC Nucleated RBC % (auto) VBG pH VBG pCO2 VBG pO2 VBG HCO3 VBG O2 Saturation VBG Base Excess Sodium Potassium Chloride Carbon Dioxide Anion Gap BUN Creatinine Estim Creat Clear Calc Estimated GFR POC Glucose 166 H 101 118 H Random Glucose Lactic Acid Calcium Phosphorus Magnesium Total Bilirubin Direct Bilirubin AST ALT Alkaline Phosphatase Ammonia C-Reactive Protein Total Protein Albumin Random Vancomycin 08/27/24 08/27/24 08/28/24 19:41 20:57 01:19 WBC RBC Hgb Hct MCV MCH MCHC RDW Plt Count MPV Immature Gran % (Auto) Neut % (Auto) Lymph % (Auto) [place] % (Auto) Eos % (Auto) Baso % (Auto) Lymph # (Auto) [place] # (Auto) Eos # (Auto) Baso # (Auto) Abs Immat Gran (auto) Absolute Neuts (auto) Absolute Nucleated RBC Nucleated RBC % (auto) VBG pH VBG pCO2 VBG pO2 VBG HCO3 VBG O2 Saturation VBG Base Excess Sodium Potassium Chloride Carbon Dioxide Anion Gap BUN Creatinine Estim Creat Clear Calc Estimated GFR POC Glucose 224 H 222 H 278 H Random Glucose Lactic Acid Calcium Phosphorus Magnesium Total Bilirubin Direct Bilirubin AST ALT Alkaline Phosphatase Ammonia C-Reactive Protein Total Protein Albumin Random Vancomycin 08/28/24 08/28/24 08/28/24 01:39 04:28 07:05 WBC 15.0 H RBC 4.59 L Hgb 10.5 L Hct 33.8 L MCV 73.6 L MCH 22.9 L MCHC 31.1 RDW 18.8 H Plt Count 218 MPV Not Reportable Immature Gran % (Auto) Neut % (Auto) Lymph % (Auto) [place] % (Auto) Eos % (Auto) Baso % (Auto) Lymph # (Auto) [place] # (Auto) Eos # (Auto) Baso # (Auto) Abs Immat Gran (auto) Absolute Neuts (auto) Absolute Nucleated RBC 0.000 Nucleated RBC % (auto) 0.0 VBG pH VBG pCO2 VBG pO2 VBG HCO3 VBG O2 Saturation VBG Base Excess Sodium 137 Potassium 5.0 Chloride 97 Carbon Dioxide 23 Anion Gap 22 H BUN 56 H Creatinine 7.02 H* Estim Creat Clear Calc 9.1 Estimated GFR 8 POC Glucose 267 H 209 H Random Glucose 243 H Lactic Acid Calcium 8.9 Phosphorus 10.4 H Magnesium Total Bilirubin Direct Bilirubin AST ALT Alkaline Phosphatase Ammonia C-Reactive Protein Total Protein Albumin Random Vancomycin 08/28/24 08/28/24 08/28/24 07:29 11:23 16:15 WBC RBC Hgb Hct MCV MCH MCHC RDW Plt Count MPV Immature Gran % (Auto) Neut % (Auto) Lymph % (Auto) [place] % (Auto) Eos % (Auto) Baso % (Auto) Lymph # (Auto) [place] # (Auto) Eos # (Auto) Baso # (Auto) Abs Immat Gran (auto) Absolute Neuts (auto) Absolute Nucleated RBC Nucleated RBC % (auto) VBG pH VBG pCO2 VBG pO2 VBG HCO3 VBG O2 Saturation VBG Base Excess Sodium Potassium Chloride Carbon Dioxide Anion Gap BUN Creatinine Estim Creat Clear Calc Estimated GFR POC Glucose 230 H 224 H 170 H Random Glucose Lactic Acid Calcium Phosphorus Magnesium Total Bilirubin Direct Bilirubin AST ALT Alkaline Phosphatase Ammonia C-Reactive Protein Total Protein Albumin Random Vancomycin 08/28/24 08/28/24 08/28/24 18:16 20:08 23:34 WBC RBC Hgb Hct MCV MCH MCHC RDW Plt Count MPV Immature Gran % (Auto) Neut % (Auto) Lymph % (Auto) [place] % (Auto) Eos % (Auto) Baso % (Auto) Lymph # (Auto) [place] # (Auto) Eos # (Auto) Baso # (Auto) Abs Immat Gran (auto) Absolute Neuts (auto) Absolute Nucleated RBC Nucleated RBC % (auto) VBG pH VBG pCO2 VBG pO2 VBG HCO3 VBG O2 Saturation VBG Base Excess Sodium Potassium Chloride Carbon Dioxide Anion Gap BUN Creatinine Estim Creat Clear Calc Estimated GFR POC Glucose 268 H 181 H Random Glucose Lactic Acid Calcium Phosphorus Magnesium Total Bilirubin Direct Bilirubin AST ALT Alkaline Phosphatase Ammonia C-Reactive Protein Total Protein Albumin Random Vancomycin 12.7 L 08/29/24 08/29/24 08/29/24 03:37 06:17 07:22 WBC 13.7 H RBC 4.64 Hgb 10.4 L Hct 34.3 L MCV 73.9 L MCH 22.4 L MCHC 30.3 L RDW 18.8 H Plt Count 241 MPV Not Reportable Immature Gran % (Auto) Neut % (Auto) Lymph % (Auto) [place] % (Auto) Eos % (Auto) Baso % (Auto) Lymph # (Auto) [place] # (Auto) Eos # (Auto) Baso # (Auto) Abs Immat Gran (auto) Absolute Neuts (auto) Absolute Nucleated RBC 0.000 Nucleated RBC % (auto) 0.0 VBG pH VBG pCO2 VBG pO2 VBG HCO3 VBG O2 Saturation VBG Base Excess Sodium 138 Potassium 4.3 Chloride 99 Carbon Dioxide 24 Anion Gap 19 BUN 35 H Creatinine 4.94 H* Estim Creat Clear Calc 13.0 Estimated GFR 12 POC Glucose 186 H 137 H Random Glucose 152 H Lactic Acid Calcium 8.8 Phosphorus Magnesium Total Bilirubin Direct Bilirubin AST ALT Alkaline Phosphatase Ammonia C-Reactive Protein Total Protein Albumin Random Vancomycin 08/29/24 08/29/24 08/29/24 11:56 15:31 19:46 WBC RBC Hgb Hct MCV MCH MCHC RDW Plt Count MPV Immature Gran % (Auto) Neut % (Auto) Lymph % (Auto) [place] % (Auto) Eos % (Auto) Baso % (Auto) Lymph # (Auto) [place] # (Auto) Eos # (Auto) Baso # (Auto) Abs Immat Gran (auto) Absolute Neuts (auto) Absolute Nucleated RBC Nucleated RBC % (auto) VBG pH VBG pCO2 VBG pO2 VBG HCO3 VBG O2 Saturation VBG Base Excess Sodium Potassium Chloride Carbon Dioxide Anion Gap BUN Creatinine Estim Creat Clear Calc Estimated GFR POC Glucose 236 H 161 H 204 H Random Glucose Lactic Acid Calcium Phosphorus Magnesium Total Bilirubin Direct Bilirubin AST ALT Alkaline Phosphatase Ammonia C-Reactive Protein Total Protein Albumin Random Vancomycin 08/30/24 08/30/24 08/30/24 03:14 06:26 08:10 WBC 14.5 H RBC 4.84 Hgb 11.1 L Hct 35.5 L MCV 73.3 L MCH 22.9 L MCHC 31.3 RDW 18.4 H Plt Count 261 MPV Not Reportable Immature Gran % (Auto) Neut % (Auto) Lymph % (Auto) [place] % (Auto) Eos % (Auto) Baso % (Auto) Lymph # (Auto) [place] # (Auto) Eos # (Auto) Baso # (Auto) Abs Immat Gran (auto) Absolute Neuts (auto) Absolute Nucleated RBC 0.000 Nucleated RBC % (auto) 0.0 VBG pH VBG pCO2 VBG pO2 VBG HCO3 VBG O2 Saturation VBG Base Excess Sodium 135 Potassium 4.4 Chloride 97 Carbon Dioxide 24 Anion Gap 18 BUN 51 H Creatinine 6.37 H* Estim Creat Clear Calc 10.1 Estimated GFR 9 POC Glucose 167 H 127 H Random Glucose 145 H Lactic Acid Calcium 8.6 Phosphorus Magnesium Total Bilirubin Direct Bilirubin AST ALT Alkaline Phosphatase Ammonia C-Reactive Protein Total Protein Albumin Random Vancomycin 08/30/24 08/30/24 08/30/24 14:50 18:18 20:39 WBC RBC Hgb Hct MCV MCH MCHC RDW Plt Count MPV Immature Gran % (Auto) Neut % (Auto) Lymph % (Auto) [place] % (Auto) Eos % (Auto) Baso % (Auto) Lymph # (Auto) [place] # (Auto) Eos # (Auto) Baso # (Auto) Abs Immat Gran (auto) Absolute Neuts (auto) Absolute Nucleated RBC Nucleated RBC % (auto) VBG pH VBG pCO2 VBG pO2 VBG HCO3 VBG O2 Saturation VBG Base Excess Sodium Potassium Chloride Carbon Dioxide Anion Gap BUN Creatinine Estim Creat Clear Calc Estimated GFR POC Glucose 126 H 415 H* Random Glucose Lactic Acid Calcium Phosphorus Magnesium Total Bilirubin Direct Bilirubin AST ALT Alkaline Phosphatase Ammonia C-Reactive Protein Total Protein Albumin Random Vancomycin 16.6 08/31/24 08/31/24 08/31/24 00:03 03:41 06:39 WBC 18.1 H RBC 4.77 Hgb 10.9 L Hct 34.8 L MCV 73.0 L MCH 22.9 L MCHC 31.3 RDW 18.5 H Plt Count 296 MPV 10.8 Immature Gran % (Auto) Neut % (Auto) Lymph % (Auto) [place] % (Auto) Eos % (Auto) Baso % (Auto) Lymph # (Auto) [place] # (Auto) Eos # (Auto) Baso # (Auto) Abs Immat Gran (auto) Absolute Neuts (auto) Absolute Nucleated RBC 0.000 Nucleated RBC % (auto) 0.0 VBG pH VBG pCO2 VBG pO2 VBG HCO3 VBG O2 Saturation VBG Base Excess Sodium 140 Potassium 4.9 Chloride 102 Carbon Dioxide 23 Anion Gap 20 BUN 54 H Creatinine 5.94 H* Estim Creat Clear Calc 10.8 Estimated GFR 10 POC Glucose 276 H 281 H Random Glucose 334 H Lactic Acid Calcium 8.6 Phosphorus Magnesium Total Bilirubin Direct Bilirubin AST ALT Alkaline Phosphatase Ammonia C-Reactive Protein Total Protein Albumin Random Vancomycin 08/31/24 08/31/24 08/31/24 07:26 11:20 15:32 WBC RBC Hgb Hct MCV MCH MCHC RDW Plt Count MPV Immature Gran % (Auto) Neut % (Auto) Lymph % (Auto) [place] % (Auto) Eos % (Auto) Baso % (Auto) Lymph # (Auto) [place] # (Auto) Eos # (Auto) Baso # (Auto) Abs Immat Gran (auto) Absolute Neuts (auto) Absolute Nucleated RBC Nucleated RBC % (auto) VBG pH VBG pCO2 VBG pO2 VBG HCO3 VBG O2 Saturation VBG Base Excess Sodium Potassium Chloride Carbon Dioxide Anion Gap BUN Creatinine Estim Creat Clear Calc Estimated GFR POC Glucose 296 H 169 H 197 H Random Glucose Lactic Acid Calcium Phosphorus Magnesium Total Bilirubin Direct Bilirubin AST ALT Alkaline Phosphatase Ammonia C-Reactive Protein Total Protein Albumin Random Vancomycin 08/31/24 09/01/24 09/01/24 21:11 06:23 07:37 WBC 15.9 H RBC 4.66 Hgb 10.7 L Hct 33.8 L MCV 72.5 L MCH 23.0 L MCHC 31.7 RDW 18.2 H Plt Count 314 MPV 10.5 Immature Gran % (Auto) Neut % (Auto) Lymph % (Auto) [place] % (Auto) Eos % (Auto) Baso % (Auto) Lymph # (Auto) [place] # (Auto) Eos # (Auto) Baso # (Auto) Abs Immat Gran (auto) Absolute Neuts (auto) Absolute Nucleated RBC 0.000 Nucleated RBC % (auto) 0.0 VBG pH VBG pCO2 VBG pO2 VBG HCO3 VBG O2 Saturation VBG Base Excess Sodium 137 Potassium 4.7 Chloride 101 Carbon Dioxide 20 L Anion Gap 21 H BUN 74 H Creatinine 7.21 H* Estim Creat Clear Calc 8.9 Estimated GFR 8 POC Glucose 228 H 102 Random Glucose 119 H Lactic Acid Calcium 8.8 Phosphorus Magnesium Total Bilirubin Direct Bilirubin AST ALT Alkaline Phosphatase Ammonia C-Reactive Protein Total Protein Albumin Random Vancomycin Airway Mallampati Class: III TM Dist: >3cm Neck ROM: Limited Loose/Missing/Broken Teeth: Yes, Upper and Lower Assessment and Plan Assessment Anesthesia Assessment: Anesthesia Plan Discussed and Chart Reviewed Final Anesthetic Review Family History of Problems with Anesthesia: No History of Problems with Anesthesia: No NPO: Yes ASA Class: IV and Emergency Final Preanesthetic Review: No Changes in Pt Med Stat, Meds/Allgs Chart Reviewed, Consent Obtained/Reviewed and Anes Risks/Benef Reviewed Patient Risk: High Procedure Risk: Low Anesthetic Plan Anesthetic Plan: TIVA Disposition: Standard PACU
[2024-09-01 10:59] LABS: Glucose, Whole Blood 157 mg/dL (60-115)
--- NOTE | 2024-09-01 11:25 | W.PM.OPN ---
Operative Note Operative Note Date of Service: 09/01/24 Narrative: Date of Service: 09/01/24 Pre-op diagnosis: Wet Gangrene right long finger Post-op diagnosis: same Procedure: Debridement right hand Surgeon: Baldemar Witt MD Anesthesia: MAC Was an Pest Control Worker Helper used for this Procedure?: No Estimated blood loss (mL): 1 IV fluids (mL): 200 Pathology: none sent Condition: stable Disposition: PACU Procedure in detail: Patient was brought to the operating placed supine on the hand table. He was prepped and draped in standard sterile fashion. Time-out was called to NH for purpose hyper procedure proper surgeon. Began by examining the wound. The wound was open without drainage and minimally malodorous. The dorsum of the skin appeared healthy and viable with necrotic demarcation extending up approximately 5 mm of the ring finger and extending along the volar surface of the palm approximately 3 to 4 mm past the level of the palmar distal crease. The volar skin was more necrotic than the dorsal skin but stable and improved from prior. I debrided some of the nonviable volar tissue but minimally and irrigated copiously. I then packed the volar aspect of the wound with a silver dressing and then covered this with additional silver dressing and sterile kerlex. Additional sterile dressings were applied and the patient was awakened from sedation and brought to the recovery room in stable condition. There were no known complications.
--- NOTE | 2024-09-01 11:59 | HO.PM.IMPN ---
Subjective Subjective Date of Service: 09/01/24 Interval History: repeat washout done today pain controlled, pt is hungry This history was taken in [place]ian from the patient. Review of Systems Review of Systems: Yes all other systems are reviewed and are negative Physical Exam Vital Signs: Vital Signs: Last Vital Signs Temp 98.1 F 09/01/24 11:14 Pulse 60 09/01/24 11:14 Resp 17 09/01/24 11:14 BP 160/75 H 09/01/24 11:14 Pulse Ox 98 09/01/24 11:14 O2 Del Method Nasal Cannula 09/01/24 11:14 O2 Flow Rate 2 09/01/24 11:14 BMI result Body Mass Index 27.3 Gen: in no acute distress HEENT: sclera anicteric, moist mucus membranes Neck: supple Lungs: clear to auscultation bilaterally Heart: regular rate and rhythm, no murmurs Abd: soft, non-tender, non-distended Ext: no edema, R hand in dry dressing; exam per Ortho operative note from this morning; s/p R BKA Skin: warm/well-perfused Neuro: alert and oriented x3, no focal findings Psych: appropriate affect Objective Data Active Medications Acetaminophen (Acetaminophen 325 Mg Tablet) 650 mg PO Q6H PRN PRN Reason: Pain, Mild 1-3,fever,headache Last Admin: 08/25/24 12:20 Dose: 650 mg Documented By: SHAHZAD Albuterol Sulfate (Albuterol Sulfate 90 Mcg 8 Gm Inhaler) 2 puff INHALE Q4H PRN PRN Reason: Wheezing Allopurinol (Allopurinol 100 Mg Tablet) 100 mg PO MOWEFR@1600 [facility] Last Admin: 08/30/24 17:04 Dose: Not Given Documented By: WENDY Non-Admin Reason: NPO Amlodipine Besylate (Amlodipine Besylate 10 Mg Tablet) 10 mg PO DAILY [facility]; Protocol Last Admin: 09/01/24 09:49 Dose: 10 mg Documented By: CHAU Aspirin (Aspirin Enteric Coated 81 Mg Tablet.) 81 mg PO MOWEFR@1600 [facility] Last Admin: 08/30/24 17:04 Dose: Not Given Documented By: WENDY Non-Admin Reason: NPO Aspirin (Aspirin Enteric Coated 81 Mg Tablet.) 81 mg PO SUTUTHSA@0900 [facility] Last Admin: 09/01/24 08:29 Dose: Not Given Documented By: CHAU Non-Admin Reason: Off Unit: Surgery Atorvastatin Calcium (Atorvastatin Calcium 40 Mg Tablet) 40 mg PO MOWEFR@1600 [facility] Last Admin: 08/30/24 17:04 Dose: Not Given Documented By: WENDY Non-Admin Reason: NPO Atorvastatin Calcium (Atorvastatin Calcium 40 Mg Tablet) 40 mg PO SUTUTHSA@0900 [facility] Last Admin: 09/01/24 08:29 Dose: Not Given Documented By: CHAU Non-Mt Reason: Off Unit: Surgery Calcium Carbonate (Calcium Carbonate 750 Mg Tab.Chew) 750 mg PO Q4H PRN PRN Reason: Heartburn Carvedilol (Carvedilol 12.5 Mg Tablet) 12.5 mg PO BID [facility]; Protocol Last Admin: 09/01/24 08:29 Dose: Not Given Documented By: CHAU Non-Mt Reason: Off Unit: Surgery Dextrose (Dextrose 50 % 25 Gm/50 Ml Syringe) 25 gm IVPUSH Q15M PRN; Protocol PRN Reason: per Hypoglycemia Standing Ord. Last Admin: 08/27/24 07:59 Dose: 25 gm Documented By: TRUDY Docusate Sodium (Docusate Sodium 100 Mg Capsule) 100 mg PO DAILY [facility] Last Admin: 09/01/24 09:49 Dose: 100 mg Documented By: CHAU Doxazosin Mesylate (Doxazosin Mesylate 2 Mg Tablet) 4 mg PO BEDTIME [facility]; Protocol Last Admin: 08/31/24 20:18 Dose: 4 mg Documented By: HIRAL Fluticasone/Umeclidinium/Vilanterol (Fluticasone/Umeclidinium/Vilanterol 100/62.5/25 Blst.W.Dev) 1 puff INHALE RDAILY [facility] Last Admin: 09/01/24 08:12 Dose: 1 puff Documented By: EVENS Furosemide (Furosemide 40 Mg Tablet) 80 mg PO MOWEFR@1600 [facility]; Protocol Last Admin: 08/30/24 17:04 Dose: Not Given Documented By: WENDY Non-Admin Reason: NPO Furosemide (Furosemide 40 Mg Tablet) 80 mg PO SUTUTHSA@0900 [facility]; Protocol Last Admin: 09/01/24 08:30 Dose: Not Given Documented By: CHAU Non-Admin Reason: Off Unit: Surgery Glucose (Glucose Gel 15 Gm Gel..Gram.) 15 gm PO Q15M PRN PRN Reason: per Hypoglycemia Standing Ord. Last Admin: 08/25/24 04:50 Dose: 15 gm Documented By: HENRIETTA Heparin Sodium (Porcine) (Heparin Sodium,Porcine 5,000 Unit/Ml Vial) 5,000 unit SUBCUT Q12H [facility] Last Admin: 09/01/24 11:25 Dose: 5,000 unit Documented By: CHAU Hydrocortisone (Hydrocortisone 1 % Ointment 28.35 Gm Tube) 1 appl TOPICAL BID PRN; Protocol PRN Reason: itching Vancomycin HCl 500 mg/ Sodium (Chloride) 110 mls @ 110 mls/hr IV ONCE ONE Stop: 08/23/24 20:59 Cefepime HCl 1 gm/ Sodium (Chloride) 50 mls @ 100 mls/hr IV Q24H [facility] Insulin Glargine (Insulin Glargine,Hum.Rec.Anlog 100 Unit/Ml 10 Ml Vial) 10 unit SUBCUT BEDTIME [facility] Last Admin: 08/31/24 21:35 Dose: 10 unit Documented By: HIRAL Insulin Human Lispro (Insulin Lispro 100 Unit/Ml 3 Ml Vial) 0 unit SUBCUT QIDACHS [facility]; Protocol Last Admin: 09/01/24 11:26 Dose: 2 unit Documented By: CHAU Levetiracetam (Levetiracetam 1,000 Mg Tablet) 1,000 mg PO BID [facility] Last Admin: 09/01/24 09:49 Dose: 1,000 mg Documented By: CHAU Losartan Potassium (Losartan Potassium 25 Mg Tablet) 25 mg PO MOWEFR@1600 [facility]; Protocol Last Admin: 08/30/24 17:05 Dose: Not Given Documented By: WENDY Non-Admin Reason: NPO Losartan Potassium (Losartan Potassium 25 Mg Tablet) 25 mg PO SUTUTHSA@0900 [facility]; Protocol Last Admin: 09/01/24 08:30 Dose: Not Given Documented By: CHAU Non-Mt Reason: Off Unit: Surgery Magnesium Hydroxide (Milk Of Magnesia 30 Ml Oral.Susp) 30 ml PO DAILY PRN PRN Reason: Constipation Melatonin (Melatonin 3 Mg Tablet) 6 mg PO BEDTIME PRN PRN Reason: Insomnia Last Admin: 08/28/24 22:00 Dose: 6 mg Documented By: KEREN Omeprazole (Omeprazole 20 Mg Capsule.Dr) 20 mg PO DAILY@0630 [facility] Last Admin: 09/01/24 05:00 Dose: Not Given Documented By: ANTOIC Non-Admin Reason: NPO Ondansetron HCl (Ondansetron Hcl 4 Mg/2 Ml Vial) 4 mg IVPUSH Q8H PRN PRN Reason: Nausea and Vomiting Oxycodone HCl (Oxycodone Hcl Immed Release 5 Mg Tablet) 5 mg PO Q6H PRN PRN Reason: Pain, Severe (Pain Scale 7-10) Last Admin: 08/30/24 09:32 Dose: 5 mg Documented By: WENDY Pharmacy Consult (Consult Rx Vancomycin Dosing) 1 each MISCELLANE DAILY PRN PRN Reason: Consult order Pregabalin (Pregabalin 75 Mg Capsule) 75 mg PO DAILY [facility] Last Admin: 09/01/24 09:49 Dose: 75 mg Documented By: CHAU Sevelamer Carbonate (Sevelamer Carbonate Tablet 800 Mg Tablet) 800 mg PO TIDWM [facility] Last Admin: 09/01/24 09:51 Dose: 800 mg Documented By: CHAU Sodium Chloride (0.9 % Sodium Chloride Flush 3 Ml Syringe) 3 ml IVFLUSH QSHIFT [facility] Last Admin: 09/01/24 09:45 Dose: 3 ml Documented By: CHAU Labs 09/01/24 06:23 09/01/24 06:23 Labs: Laboratory Results - last 24 hr 08/31/24 08/31/24 09/01/24 15:32 21:11 06:23 MCV 72.5 L MCH 23.0 L MCHC 31.7 RDW 18.2 H Plt Count 314 MPV 10.5 Absolute Nucleated RBC 0.000 Nucleated RBC % (auto) 0.0 Anion Gap 21 H Estim Creat Clear Calc 8.9 Estimated GFR 8 POC Glucose 197 H 228 H Random Glucose 119 H Calcium 8.8 09/01/24 09/01/24 07:37 10:51 MCV MCH MCHC RDW Plt Count MPV Absolute Nucleated RBC Nucleated RBC % (auto) Anion Gap Estim Creat Clear Calc Estimated GFR POC Glucose 102 157 H Random Glucose Calcium Assessment and Plan (1) Dry gangrene: Status: Acute Assessment and Plan: d11 for 69yo M with DM2, ESRD on HD MWF, PVD, 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 He did not think he had anything to offer specifically, and just recommended ongoing source control until we reach viable tissue- whether debridement or ultimately amputation. He suspects major issue is ischemia from vasculopathy rather than infection. Discussed with Dr Witt and we will continue to manage the pt here - has been on IV vancomycin since 08/22- and started cefepime 08/31- acute encephalopathy due to infection vs hypoglycemia- improving, hypoglycemia resolved, CT head negative HTN- losartan, amlodipine, doxazosin, carvedilol ESRD on HD with hyperkalemia- HD MWF, sevelamer, furosemide; K now normal chronic hypoxic resp failure/ROBERT - 2L home O2, CPAP at night DM2 with hypoglycemia- basal-bolus insulin; hypoglycemia resolved seizure disorder- levetiracetam PVD- aspirin, atorvastatin neuropathy- pregabalin VTE ppx- resume heparin In my clinical judgment, the patient requires continued inpatient hospitalization for the following reasons: IV ABX, surgical management dispo- suspect will need STR for wound care Total time managing care of this patient today: 50 minutes. Quality Stroke Does the patient have a stroke diagnosis?: No VTE Prior VTE?: No VTE Risk Level:: Medical - moderate - high VTE Device Contraindication: Treatment Not Indicated VTE Drug Contraindication: N/A - Med Ordered
[2024-09-01 15:48] LABS: Glucose, Whole Blood 285 mg/dL (60-115)
--- NOTE | 2024-09-01 17:04 | PC.NURSE ---
pt unable to tolerate sequentials due to painful diabetic ulcer to left calf,Dr. Hu notified
[2024-09-01 20:05] LABS: Glucose, Whole Blood 239 mg/dL (60-115)
[2024-09-01] MEDS: Insulin Glargine,Hum.rec.anlog 100 UNIT/ML 10 ML VIAL 10 UNIT SUBCUT (20:27)
[2024-09-02] VITALS (8 sets, daily range): BP systolic 155–189; BP diastolic 70–98; PULSE 57–87; RESP 14–20; TEMP 36.2–37.1; O2SAT 93–98
[2024-09-02 06:16] LABS: Hematocrit 34.0 % (42.0-52.0); Hemoglobin 10.7 g/dl (14.0-18.0); Mean Corpuscular HGB Conc 31.5 g/dl (31.0-36.0); Mean Corpuscular Hemoglobin 23.2 pg (27.0-33.0); Mean Corpuscular Volume 73.6 fL (80.0-98.0); NRBC Abs Auto 0.000 X10*3/uL (0.0-0.012); NRBC Pct Auto 0.0 /100WBC (0.0-0.2); Platelet Count 396 X10*3/uL (160-400); Red Blood Count 4.62 X10*6/uL (4.60-5.80); White Blood Count 16.4 X10*3/uL (4.8-10.8)
[2024-09-02 06:25] LABS: Anion Gap 19 (12-20); Blood Urea Nitrogen 93 mg/dL (9-16); Calcium 8.7 mg/dL (8.4-10.2); Carbon Dioxide 23 mmol/L (22-29); Chloride 98 mmol/L (96-108); Creatinine Clr Calc Pharmacy 7.5; Estimated Glomerular Filt Rate 6; Potassium 5.4 mmol/L (3.3-5.1); Sodium 135 mmol/L (135-145)
[2024-09-02 07:15] LABS: Glucose, Whole Blood 92 mg/dL (60-115)
--- NOTE | 2024-09-02 08:23 | PM.PNORT ---
Subjective Subjective Date of Service: 09/02/24 Interval history: Postop day 5 status post right middle and index finger amputations and postop day 3 status post ray resection of right 3rd metacarpal, status post I and D on 09/01/2024 Resting comfortably in bed this morning Pain appears well managed No acute complaints or concerns at this time Physical Exam Vital Signs: Vital Signs: Last Vital Signs Temp 97.2 F 09/02/24 07:09 Pulse 59 09/02/24 07:09 Resp 16 09/02/24 07:09 BP 159/98 H 09/02/24 07:09 Pulse Ox 96 09/02/24 07:09 O2 Del Method Room Air 09/02/24 07:09 O2 Flow Rate 2 09/02/24 03:48 BMI result Body Mass Index 27.3 Extrem: Other: Dressing on right hand clean, dry, intact No evidence of surrounding erythema, ecchymosis No evidence of infection Patient is able to flex and extend the remaining digits of the right hand without difficulty Compartments soft, nontender Distal sensation intact Capillary refill brisk Procedures Date of Service Date of Service: 09/02/24 Progress Note: A&P Assessment and plan (1) 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: Status: Acute (2) Status post amputation of finger of right hand: Status: Acute (3) Dry gangrene: Status: Acute (4) Necrosis of finger: Status: Acute Plan Continue pain management Continue IV antibiotics Plan to change dressing later today, with silver to encourage wound to dry out Continue with all other recommendations per Medicine Time Spent With Patient Time: Total time managing care of this patient today ____ minutes. Quality Stroke Does the patient have a stroke diagnosis?: No VTE Prior VTE?: No VTE Risk Level:: Medical - moderate - high VTE Device Contraindication: Treatment Not Indicated VTE Drug Contraindication: N/A - Med Ordered
--- NOTE | 2024-09-02 08:40 | P.PNNP_ITS ---
Subjective Subjective Date of Service: 09/02/24 Interval history: following for management of ESRD on HD while here for treatment of dry gangrene right hand digits Patient states he is feeling good ok, tired. Physical Exam 2 Vital Signs: Vital Signs: Last Vital Signs Temp 97.3 F 09/02/24 12:00 Pulse 87 09/02/24 12:00 Resp 16 09/02/24 12:00 BP 159/98 H 09/02/24 12:00 Pulse Ox 96 09/02/24 12:00 O2 Del Method Nasal Cannula 09/02/24 12:00 O2 Flow Rate 2 09/02/24 12:00 BMI result Body Mass Index 27.3 Const: General: lethargic Orientation/consciousness: lethargic Resp: Effort & Inspection: normal respiratory effort and able to speak in complete sentences Auscultation: clear to auscultation bilaterally Cardio: Rate: regular rate Rhythm: regular rhythm Heart sounds: S1 normal heart sound present and S2 normal heart sound present GI: Palpation (GI): Soft to palpation and nontender Skin: Wounds: wounds noted (right necrotic 2nd and 3rd digits ) Extrem: General: No edema and No pedal edema Objective Data Labs 09/02/24 05:46 09/02/24 05:46 Labs: Laboratory Results - last 24 hr 09/01/24 09/01/24 09/02/24 15:39 20:01 05:46 WBC 16.4 H RBC 4.62 Hgb 10.7 L Hct 34.0 L MCV 73.6 L MCH 23.2 L MCHC 31.5 RDW 18.2 H Plt Count 396 D MPV 11.5 Absolute Nucleated RBC 0.000 Nucleated RBC % (auto) 0.0 ESR 36 H Sodium 135 Potassium 5.4 H Chloride 98 Carbon Dioxide 23 Anion Gap 19 BUN 93 H Creatinine 8.51 H* Estim Creat Clear Calc 7.5 Estimated GFR 6 POC Glucose 285 H 239 H Random Glucose 95 Calcium 8.7 C-Reactive Protein 8.23 H 09/02/24 09/02/24 07:11 10:59 WBC RBC Hgb Hct MCV MCH MCHC RDW Plt Count MPV Absolute Nucleated RBC Nucleated RBC % (auto) ESR Sodium Potassium Chloride Carbon Dioxide Anion Gap BUN Creatinine Estim Creat Clear Calc Estimated GFR POC Glucose 92 171 H Random Glucose Calcium C-Reactive Protein Microbiology Microbiology Results: Microbiology 08/22/24 14:52 Blood - Venous Blood Culture - Final No growth after 5 days. 08/22/24 14:20 Blood - Venous Blood Culture - Final No growth after 5 days. Procedures Date of Service Date of Service: 09/02/24 Assessment & Plan Assessment and plan (1) ESRD needing dialysis: Status: Acute Plan ESRD on HD MWF access: Right permcath appears slightly euvolemic H&H 10.7 & 34- no indication for procrit at this time phos is 10.4, ensure sevelamer 800mg TID with meals. Calcium 8.7. low potassium, phosphorous, and sodium diet fluid restriction 1.5L continue to monitor electrolytes renal function studies daily blood pressures elevated- oral BP meds held this a.m. due to HD today. will continue to follow Discussed with Dr Rao Time Spent With Patient Time: Total time managing care of this patient today ____ minutes. Progress Note: Quality Stroke Does the patient have a stroke diagnosis?: No
--- NOTE | 2024-09-02 10:23 | HO.PM.IMPN ---
Subjective Subjective Date of Service: 09/02/24 Interval History: This history was taken in Arabic from the patient. No fever Hand pain controlled to HD today Review of Systems Review of Systems: Yes all other systems are reviewed and are negative Physical Exam Vital Signs: Vital Signs: Last Vital Signs Temp 97.2 F 09/02/24 07:09 Pulse 59 09/02/24 07:09 Resp 16 09/02/24 07:09 BP 159/98 H 09/02/24 07:09 Pulse Ox 96 09/02/24 07:09 O2 Del Method Room Air 09/02/24 07:09 O2 Flow Rate 2 09/02/24 03:48 BMI result Body Mass Index 27.3 Gen: in no acute distress HEENT: sclera anicteric, moist mucus membranes Neck: supple Lungs: clear to auscultation bilaterally Heart: regular rate and rhythm, no murmurs Abd: soft, non-tender, non-distended Ext: no edema, R hand s/p 2nd + 3rd finger amputations and in dry dressing; s/p R BKA Skin: warm/well-perfused Neuro: alert and oriented x3, no focal findings Psych: appropriate affect Objective Data Active Medications Acetaminophen (Acetaminophen 325 Mg Tablet) 650 mg PO Q6H PRN PRN Reason: Pain, Mild 1-3,fever,headache Last Admin: 09/02/24 01:25 Dose: 650 mg Documented By: ANAM Albuterol Sulfate (Albuterol Sulfate 90 Mcg 8 Gm Inhaler) 2 puff INHALE Q4H PRN PRN Reason: Wheezing Allopurinol (Allopurinol 100 Mg Tablet) 100 mg PO MOWEFR@1600 [facility] Last Admin: 08/30/24 17:04 Dose: Not Given Documented By: WENDY Non-Admin Reason: NPO Amlodipine Besylate (Amlodipine Besylate 10 Mg Tablet) 10 mg PO DAILY [facility]; Protocol Last Admin: 09/01/24 09:49 Dose: 10 mg Documented By: CAHU Aspirin (Aspirin Enteric Coated 81 Mg Tablet.) 81 mg PO MOWEFR@1600 [facility] Last Admin: 08/30/24 17:04 Dose: Not Given Documented By: WENDY Non-Admin Reason: NPO Aspirin (Aspirin Enteric Coated 81 Mg Tablet.) 81 mg PO SUTUTHSA@0900 [facility] Last Admin: 09/01/24 08:29 Dose: Not Given Documented By: CHAU Non-Admin Reason: Off Unit: Surgery Atorvastatin Calcium (Atorvastatin Calcium 40 Mg Tablet) 40 mg PO MOWEFR@1600 [facility] Last Admin: 08/30/24 17:04 Dose: Not Given Documented By: WENDY Non-Admin Reason: NPO Atorvastatin Calcium (Atorvastatin Calcium 40 Mg Tablet) 40 mg PO SUTUTHSA@0900 [facility] Last Admin: 09/01/24 08:29 Dose: Not Given Documented By: CHAU Non-Admin Reason: Off Unit: Surgery Calcium Carbonate (Calcium Carbonate 750 Mg Tab.Chew) 750 mg PO Q4H PRN PRN Reason: Heartburn Carvedilol (Carvedilol 12.5 Mg Tablet) 12.5 mg PO BID [facility]; Protocol Last Admin: 09/01/24 20:28 Dose: 12.5 mg Documented By: ANAM Dextrose (Dextrose 50 % 25 Gm/50 Ml Syringe) 25 gm IVPUSH Q15M PRN; Protocol PRN Reason: per Hypoglycemia Standing Ord. Last Admin: 08/27/24 07:59 Dose: 25 gm Documented By: TRUDY Docusate Sodium (Docusate Sodium 100 Mg Capsule) 100 mg PO DAILY [facility] Last Admin: 09/01/24 09:49 Dose: 100 mg Documented By: CHAU Doxazosin Mesylate (Doxazosin Mesylate 2 Mg Tablet) 4 mg PO BEDTIME [facility]; Protocol Last Admin: 09/01/24 20:28 Dose: 4 mg Documented By: ANAM Fluticasone/Umeclidinium/Vilanterol (Fluticasone/Umeclidinium/Vilanterol 100/62.5/25 Blst.W.Dev) 1 puff INHALE RDAILY [facility] Last Admin: 09/01/24 08:12 Dose: 1 puff Documented By: EVENS Furosemide (Furosemide 40 Mg Tablet) 80 mg PO MOWEFR@1600 [facility]; Protocol Last Admin: 08/30/24 17:04 Dose: Not Given Documented By: WENDY Non-Admin Reason: NPO Furosemide (Furosemide 40 Mg Tablet) 80 mg PO SUTUTHSA@0900 [facility]; Protocol Last Admin: 09/01/24 08:30 Dose: Not Given Documented By: CHAU Non-Admin Reason: Off Unit: Surgery Glucose (Glucose Gel 15 Gm Gel..Gram.) 15 gm PO Q15M PRN PRN Reason: per Hypoglycemia Standing Ord. Last Admin: 08/25/24 04:50 Dose: 15 gm Documented By: HENRIETTA Heparin Sodium (Porcine) (Heparin Sodium,Porcine 5,000 Unit/Ml Vial) 5,000 unit SUBCUT Q12H [facility] Last Admin: 09/01/24 23:06 Dose: 5,000 unit Documented By: ANAM Hydrocortisone (Hydrocortisone 1 % Ointment 28.35 Gm Tube) 1 appl TOPICAL BID PRN; Protocol PRN Reason: itching Vancomycin HCl 500 mg/ Sodium (Chloride) 110 mls @ 110 mls/hr IV ONCE ONE Stop: 08/23/24 20:59 Cefepime HCl 1 gm/ Sodium (Chloride) 50 mls @ 100 mls/hr IV Q24H [facility] Last Infusion: 09/01/24 17:36 Dose: Infused Documented By: SANJUANA Insulin Glargine (Insulin Glargine,Hum.Rec.Anlog 100 Unit/Ml 10 Ml Vial) 10 unit SUBCUT BEDTIME [facility] Last Admin: 09/01/24 20:27 Dose: 10 unit Documented By: ANAM Insulin Human Lispro (Insulin Lispro 100 Unit/Ml 3 Ml Vial) 0 unit SUBCUT QIDACHS [facility]; Protocol Last Admin: 09/02/24 07:20 Dose: Not Given Documented By: DESTINY Non-Admin Reason: No Insulin Coverage Levetiracetam (Levetiracetam 1,000 Mg Tablet) 1,000 mg PO BID [facility] Last Admin: 09/01/24 20:28 Dose: 1,000 mg Documented By: ANAM Losartan Potassium (Losartan Potassium 25 Mg Tablet) 25 mg PO MOWEFR@1600 [facility]; Protocol Last Admin: 08/30/24 17:05 Dose: Not Given Documented By: WENDY Non-Admin Reason: NPO Losartan Potassium (Losartan Potassium 25 Mg Tablet) 25 mg PO SUTUTHSA@0900 [facility]; Protocol Last Admin: 09/01/24 08:30 Dose: Not Given Documented By: CHAU Non-Admin Reason: Off Unit: Surgery Magnesium Hydroxide (Milk Of Magnesia 30 Ml Oral.Susp) 30 ml PO DAILY PRN PRN Reason: Constipation Melatonin (Melatonin 3 Mg Tablet) 6 mg PO BEDTIME PRN PRN Reason: Insomnia Last Admin: 08/28/24 22:00 Dose: 6 mg Documented By: KEREN Omeprazole (Omeprazole 20 Mg Capsule.) 20 mg PO DAILY@0630 [facility] Last Admin: 09/02/24 05:49 Dose: 20 mg Documented By: ANAM Ondansetron HCl (Ondansetron Hcl 4 Mg/2 Ml Vial) 4 mg IVPUSH Q8H PRN PRN Reason: Nausea and Vomiting Pregabalin (Pregabalin 75 Mg Capsule) 75 mg PO DAILY [facility] Last Admin: 09/01/24 09:49 Dose: 75 mg Documented By: CHAU Sevelamer Carbonate (Sevelamer Carbonate Tablet 800 Mg Tablet) 800 mg PO TIDWM [facility] Last Admin: 09/02/24 09:59 Dose: Not Given Documented By: DESTINY Non-Admin Reason: Physician Approved Sodium Chloride (0.9 % Sodium Chloride Flush 3 Ml Syringe) 3 ml IVFLUSH QSHIFT [facility] Last Admin: 09/02/24 09:58 Dose: Not Given Documented By: DESTINY Non-Admin Reason: Previously Administered Labs 09/02/24 05:46 09/02/24 05:46 Labs: Laboratory Results - last 24 hr 09/01/24 09/01/24 09/01/24 10:51 15:39 20:01 MCV MCH MCHC RDW Plt Count MPV Absolute Nucleated RBC Nucleated RBC % (auto) ESR Anion Gap Estim Creat Clear Calc Estimated GFR POC Glucose 157 H 285 H 239 H Random Glucose Calcium C-Reactive Protein 09/02/24 09/02/24 05:46 07:11 MCV 73.6 L MCH 23.2 L MCHC 31.5 RDW 18.2 H Plt Count 396 D MPV 11.5 Absolute Nucleated RBC 0.000 Nucleated RBC % (auto) 0.0 ESR 36 H Anion Gap 19 Estim Creat Clear Calc 7.5 Estimated GFR 6 POC Glucose 92 Random Glucose 95 Calcium 8.7 C-Reactive Protein 8.23 H Assessment and Plan (1) Dry gangrene: Status: Acute Assessment and Plan: d12 for 69yo M with DM2, ESRD on HD MWF, PVD, 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 He did not think he had anything to offer specifically, and just recommended ongoing source control until we reach viable tissue- whether debridement or ultimately amputation. He suspects major issue is ischemia from vasculopathy rather than infection. Discussed with Dr Witt and we will continue to manage the pt here. If worsening infection, will need transmetacarpal or even transradial amputation - daily dressing changes per Ortho - has been on IV vancomycin since 08/22- and started cefepime 08/31- ESRD on HD with hyperkalemia - HD MWF, sevelamer, furosemide; give dose of Lokelma today for K 5.4 acute encephalopathy due to infection vs hypoglycemia- resolved, hypoglycemia resolved, CT head negative HTN- losartan, amlodipine, doxazosin, carvedilol chronic hypoxic resp failure/ROBERT - 2L home O2, CPAP at night DM2 with hypoglycemia- basal-bolus insulin; hypoglycemia resolved seizure disorder- levetiracetam PVD- aspirin, atorvastatin neuropathy- pregabalin VTE ppx- heparin dispo- suspect will need STR for wound care In my clinical judgment, the patient requires continued inpatient hospitalization for the following reasons: IV ABX, surgical management Total time managing care of this patient today: 40 minutes. Quality Stroke Does the patient have a stroke diagnosis?: No VTE Prior VTE?: No VTE Risk Level:: Medical - moderate - high VTE Device Contraindication: Treatment Not Indicated VTE Drug Contraindication: N/A - Med Ordered
--- NOTE | 2024-09-02 10:56 | HO.POSTANES ---
Post Anesthesia Evaluation Post Anesthesia Evaluation Date of Service: 09/02/24 Vital Signs: Vital Signs Temp Pulse Resp BP Pulse Ox O2 Del Method O2 Flow Rate 09/02/24 07:09 97.2 F 59 16 159/98 H 96 Room Air 09/02/24 03:48 97.8 F 60 20 155/71 H 97 Nasal Cannula 2 09/01/24 23:56 97.9 F 58 20 126/62 93 Nasal Cannula 2 Anesthesia: TIVA Mental Status: Awake Pain Control: Satisfactory Nausea/Vomiting: None Hydration: Adequate Anesthesia-Related Issues: No Anes. Related Issues
[2024-09-02 11:03] LABS: Glucose, Whole Blood 171 mg/dL (60-115)
[2024-09-02] MEDS: Sevelamer Carbonate Tablet 800 MG TABLET PO ×2 (11:12→16:52)
--- NOTE | 2024-09-02 14:26 | MHC.CM.PN ---
PT NOT MEDICALLY CLEARED, RECEIVING IV ABX AND SURGICAL MANAGEMENT DCP IS EXPECTED TO BE STR VIA BLS CM FOLLOWING
[2024-09-02 16:19] LABS: Glucose, Whole Blood 160 mg/dL (60-115)
[2024-09-02] MEDS: Aspirin Enteric Coated 81 MG TABLET.DR PO (16:52)
--- NOTE | 2024-09-02 17:41 | PC.NURSE ---
Patient reports moderate to severe pain to right hand. Medications reviewed with patient. Patient declining medication for pain at this time.
[2024-09-02] MEDS: 0.9 % Sodium Chloride Flush 3 ML SYRINGE IVFLUSH (19:28)
[2024-09-02 20:37] LABS: Glucose, Whole Blood 229 mg/dL (60-115)
[2024-09-02] MEDS: Insulin Glargine,Hum.rec.anlog 100 UNIT/ML 10 ML VIAL 10 UNIT SUBCUT (20:38)
[2024-09-02] MEDS: oxyCODONE HCl Immed Release 5 MG TABLET PO (20:44)
[2024-09-03] VITALS (7 sets, daily range): BP systolic 138–176; BP diastolic 66–82; PULSE 55–65; RESP 12–20; TEMP 36.4–37.3; O2SAT 93–100
[2024-09-03 06:07] LABS: Anion Gap 18 (12-20); Blood Urea Nitrogen 59 mg/dL (9-16); Calcium 8.4 mg/dL (8.4-10.2); Carbon Dioxide 24 mmol/L (22-29); Chloride 100 mmol/L (96-108); Creatinine Clr Calc Pharmacy 10.4; Estimated Glomerular Filt Rate 9; Potassium 4.7 mmol/L (3.3-5.1); Sodium 137 mmol/L (135-145)
[2024-09-03 07:37] LABS: Glucose, Whole Blood 150 mg/dL (60-115)
[2024-09-03] MEDS: Sevelamer Carbonate Tablet 800 MG TABLET PO ×3 (08:47→16:26)
[2024-09-03] MEDS: Aspirin Enteric Coated 81 MG TABLET.DR PO (08:47)
[2024-09-03] MEDS: 0.9 % Sodium Chloride Flush 3 ML SYRINGE IVFLUSH ×3 (08:49→20:19)
[2024-09-03] MEDS: Fluticasone/Umeclidinium/Vilanterol 100/62.5/25 BLST.W.DEV 1 PUFF INHALE (10:25)
[2024-09-03 11:17] LABS: Glucose, Whole Blood 211 mg/dL (60-115)
[2024-09-03] MEDS: oxyCODONE HCl Immed Release 5 MG TABLET PO (11:56)
--- NOTE | 2024-09-03 12:49 | HO.PM.IMPN ---
Subjective Subjective Date of Service: 09/03/24 Interval History: No acute issues overnight. Info via port purser Review of Systems Denies chest pain Denies shortness of breath Denies nausea vomiting diarrhea Denies fever chills. Physical Exam Vital Signs: Vital Signs: Last Vital Signs Temp 97.8 F 09/03/24 11:26 Pulse 59 09/03/24 11:26 Resp 12 09/03/24 11:26 BP 169/72 H 09/03/24 11:26 Pulse Ox 96 09/03/24 11:26 O2 Del Method Nasal Cannula 09/03/24 11:26 O2 Flow Rate 2 09/03/24 11:26 BMI result Body Mass Index 27.3 Const: Other: Awake alert no acute distress Resp: Other: Clear to auscultation bilaterally no rales rhonchi or wheezes Cardio: Other: No S4; positive S1-S2; no S3 murmurs rubs or gallops GI: Other: Soft nontender nondistended normoactive bowel sounds Extrem: Other: Right hand dressing clean dry and intact. Objective Data Active Medications Acetaminophen (Acetaminophen 325 Mg Tablet) 650 mg PO Q6H PRN PRN Reason: Pain, Mild 1-3,fever,headache Last Admin: 09/02/24 22:48 Dose: 650 mg Documented By: ANAM Albuterol Sulfate (Albuterol Sulfate 90 Mcg 8 Gm Inhaler) 2 puff INHALE Q4H PRN PRN Reason: Wheezing Allopurinol (Allopurinol 100 Mg Tablet) 100 mg PO MOWEFR@1600 [facility] Last Admin: 09/02/24 16:52 Dose: 100 mg Documented By: DESTINY Amlodipine Besylate (Amlodipine Besylate 10 Mg Tablet) 10 mg PO DAILY [facility]; Protocol Last Admin: 09/03/24 08:47 Dose: 10 mg Documented By: KUMAR Aspirin (Aspirin Enteric Coated 81 Mg Tablet.) 81 mg PO MOWEFR@1600 [facility] Last Admin: 09/02/24 16:52 Dose: 81 mg Documented By: DESTINY Aspirin (Aspirin Enteric Coated 81 Mg Tablet.) 81 mg PO SUTUTHSA@0900 [facility] Last Admin: 09/03/24 08:47 Dose: 81 mg Documented By: KUMAR Atorvastatin Calcium (Atorvastatin Calcium 40 Mg Tablet) 40 mg PO MOWEFR@1600 [facility] Last Admin: 09/02/24 16:52 Dose: 40 mg Documented By: DESTINY Atorvastatin Calcium (Atorvastatin Calcium 40 Mg Tablet) 40 mg PO SUTUTHSA@0900 [facility] Last Admin: 09/03/24 08:47 Dose: 40 mg Documented By: KUMAR Calcium Carbonate (Calcium Carbonate 750 Mg Tab.Chew) 750 mg PO Q4H PRN PRN Reason: Heartburn Carvedilol (Carvedilol 12.5 Mg Tablet) 12.5 mg PO BID [facility]; Protocol Last Admin: 09/03/24 08:47 Dose: 12.5 mg Documented By: KUMAR Dextrose (Dextrose 50 % 25 Gm/50 Ml Syringe) 25 gm IVPUSH Q15M PRN; Protocol PRN Reason: per Hypoglycemia Standing Ord. Last Admin: 08/27/24 07:59 Dose: 25 gm Documented By: TRUDY Docusate Sodium (Docusate Sodium 100 Mg Capsule) 100 mg PO DAILY [facility] Last Admin: 09/03/24 08:44 Dose: 100 mg Documented By: KUMAR Doxazosin Mesylate (Doxazosin Mesylate 2 Mg Tablet) 4 mg PO BEDTIME [facility]; Protocol Last Admin: 09/02/24 20:37 Dose: 4 mg Documented By: ODRISLashay Fluticasone/Umeclidinium/Vilanterol (Fluticasone/Umeclidinium/Vilanterol 100/62.5/25 Blst.W.Dev) 1 puff INHALE AILY [facility] Last Admin: 09/03/24 10:25 Dose: 1 puff Documented By: PATTIE Furosemide (Furosemide 40 Mg Tablet) 80 mg PO MOWEFR@1600 [facility]; Protocol Last Admin: 09/02/24 16:52 Dose: 80 mg Documented By: DESTINY Furosemide (Furosemide 40 Mg Tablet) 80 mg PO SUTUTHSA@0900 [facility]; Protocol Last Admin: 09/03/24 08:44 Dose: 80 mg Documented By: KUMAR Glucose (Glucose Gel 15 Gm Gel..Gram.) 15 gm PO Q15M PRN PRN Reason: per Hypoglycemia Standing Ord. Last Admin: 08/25/24 04:50 Dose: 15 gm Documented By: HENRIETTA Heparin Sodium (Porcine) (Heparin Sodium,Porcine 5,000 Unit/Ml Vial) 5,000 unit SUBCUT Q12H [facility] Last Admin: 09/03/24 11:38 Dose: 5,000 unit Documented By: KUMAR Hydrocortisone (Hydrocortisone 1 % Ointment 28.35 Gm Tube) 1 appl TOPICAL BID PRN; Protocol PRN Reason: itching Vancomycin HCl 500 mg/ Sodium (Chloride) 110 mls @ 110 mls/hr IV ONCE ONE Stop: 08/23/24 20:59 Cefepime HCl 1 gm/ Sodium (Chloride) 50 mls @ 100 mls/hr IV Q24H [facility] Last Infusion: 09/02/24 17:35 Dose: Infused Documented By: DESTINY Insulin Glargine (Insulin Glargine,Hum.Rec.Anlog 100 Unit/Ml 10 Ml Vial) 10 unit SUBCUT BEDTIME [facility] Last Admin: 09/02/24 20:38 Dose: 10 unit Documented By: ANAM Insulin Human Lispro (Insulin Lispro 100 Unit/Ml 3 Ml Vial) 0 unit SUBCUT QIDACHS [facility]; Protocol Last Admin: 09/03/24 11:39 Dose: 4 unit Documented By: KUMAR Levetiracetam (Levetiracetam 1,000 Mg Tablet) 1,000 mg PO BID [facility] Last Admin: 09/03/24 08:47 Dose: 1,000 mg Documented By: KUMAR Losartan Potassium (Losartan Potassium 50 Mg Tablet) 50 mg PO SUTUTHSA@0900 [facility]; Protocol Last Admin: 09/03/24 08:48 Dose: 50 mg Documented By: KUMAR Losartan Potassium (Losartan Potassium 50 Mg Tablet) 50 mg PO MOWEFR@1600 [facility]; Protocol Magnesium Hydroxide (Milk Of Magnesia 30 Ml Oral.Susp) 30 ml PO DAILY PRN PRN Reason: Constipation Melatonin (Melatonin 3 Mg Tablet) 6 mg PO BEDTIME PRN PRN Reason: Insomnia Last Admin: 09/02/24 22:47 Dose: 6 mg Documented By: ANAM Omeprazole (Omeprazole 20 Mg Capsule.) 20 mg PO DAILY@0630 [facility] Last Admin: 09/03/24 05:40 Dose: Not Given Documented By: ANAM Non-Admin Reason: Patient Refused Ondansetron HCl (Ondansetron Hcl 4 Mg/2 Ml Vial) 4 mg IVPUSH Q8H PRN PRN Reason: Nausea and Vomiting Oxycodone HCl (Oxycodone Hcl Immed Release 5 Mg Tablet) 5 mg PO Q4H PRN PRN Reason: pain, sev Last Admin: 09/03/24 11:56 Dose: 5 mg Documented By: KUMAR Pharmacy Consult (Consult Rx Vancomycin Dosing) 1 each MISCELLANE DAILY PRN PRN Reason: Consult order Pregabalin (Pregabalin 75 Mg Capsule) 75 mg PO DAILY [facility] Last Admin: 09/03/24 08:47 Dose: 75 mg Documented By: KUMAR Sevelamer Carbonate (Sevelamer Carbonate Tablet 800 Mg Tablet) 800 mg PO TIDWM [facility] Last Admin: 09/03/24 11:38 Dose: 800 mg Documented By: KUMAR Sodium Chloride (0.9 % Sodium Chloride Flush 3 Ml Syringe) 3 ml IVFLUSH QSHIFT [facility] Last Admin: 09/03/24 08:49 Dose: 3 ml Documented By: KUMAR Labs 09/02/24 05:46 09/03/24 05:35 Labs: Laboratory Results - last 24 hr 09/02/24 09/02/24 09/02/24 16:15 18:12 20:31 Hold Purple Top Anion Gap Estim Creat Clear Calc Estimated GFR POC Glucose 160 H 229 H Random Glucose Calcium Random Vancomycin 11.7 L 09/03/24 09/03/24 09/03/24 05:35 07:33 11:13 Hold Purple Top SEE NOTE Anion Gap 18 Estim Creat Clear Calc 10.4 Estimated GFR 9 POC Glucose 150 H 211 H Random Glucose 175 H Calcium 8.4 Random Vancomycin Assessment and Plan (1) Dry gangrene: Status: Acute Assessment and Plan: 69yo M with DM2, ESRD on HD MWF, PVD, hx R BKA for limb ischemia 04/11/24, seizure disorder, HFrEF, HTN, HLD, chronic hypoxia on 2L O2, GERD, and ROBERT on CPAP presenting with pain/dry gangrene of R 2nd and 3rd fingers 1.Dry gangrene/ischemia of R 2nd + 3rd fingers - s/p R middle finger amputation at MCP and R index finger amputation at PIP 08/27/24 - s/p additional debridement and ray resection of R 3rd metacarpal head on 08/30/24 - s/p additional debridement 09/01 - discussed with Dr Osvaldo Lawler, hand surgeon at [facility] [place], on 08/31. He did not think he had anything to offer specifically, and just recommended ongoing source control until we reach viable tissue- whether debridement or ultimately amputation. He suspects major issue is ischemia from vasculopathy rather than infection. Discussed with Dr Witt and we will continue to manage the pt here. If worsening infection, will need transmetacarpal or even transradial amputation - daily dressing changes per Ortho - vancomycin since 08/22(12)... cefepime 08/31(4) 2.ESRD on HD with hyperkalemia - HD MWF, -follow renals and divalent 3.HTN -Acceptable control on current therapies -adjust as indicated 4.DM2 -acceptable control on current therapies. No further hypoglycemia -lispro correctional scale... Adjust as indicated heparin In my clinical judgment, the patient requires continued inpatient hospitalization for the following reasons: IV ABX, surgical management (2) ESRD needing dialysis: Status: Acute (3) Type 2 diabetes mellitus: Status: Acute Quality Stroke Does the patient have a stroke diagnosis?: No VTE Prior VTE?: No VTE Risk Level:: Medical - moderate - high VTE Device Contraindication: Treatment Not Indicated VTE Drug Contraindication: N/A - Med Ordered
--- NOTE | 2024-09-03 14:21 | PM.PNORT ---
Subjective Subjective Date of Service: 09/03/24 Interval history: Postop day 6 status post right middle and index finger amputations and postop day 4 status post ray resection of right 3rd metacarpal, status post I and D on 09/01/2024 Resting comfortably in bed this morning Pain appears well managed No acute complaints or concerns at this time Physical Exam Vital Signs: Vital Signs: Last Vital Signs Temp 97.8 F 09/03/24 11:26 Pulse 59 09/03/24 11:26 Resp 12 09/03/24 11:26 BP 169/72 H 09/03/24 11:26 Pulse Ox 96 09/03/24 11:26 O2 Del Method Nasal Cannula 09/03/24 11:26 O2 Flow Rate 2 09/03/24 11:26 BMI result Body Mass Index 27.3 Extrem: Other: Dressing on right hand clean, dry, intact Once dressing is removed, wound appears to be drying out with the aid of silver alginate dressing, but there is some erythema spreading down into the palm of the hand. No evidence of surrounding erythema, ecchymosis No evidence of infection Patient is able to flex and extend the remaining digits of the right hand without difficulty Compartments soft, nontender Distal sensation intact Capillary refill brisk Procedures Date of Service Date of Service: 09/03/24 Progress Note: A&P Assessment and plan (1) 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: Status: Acute (2) Status post amputation of finger of right hand: Status: Acute (3) Dry gangrene: Status: Acute (4) Necrosis of finger: Status: Acute Plan Continue pain management Continue IV antibiotics Silver alginate dressing changed today Continue to stabilize patient for hand surgery eval early next week Continue with all other recommendations per Medicine Time Spent With Patient Time: Total time managing care of this patient today ____ minutes. Quality Stroke Does the patient have a stroke diagnosis?: No VTE Prior VTE?: No VTE Risk Level:: Medical - moderate - high VTE Device Contraindication: Treatment Not Indicated VTE Drug Contraindication: N/A - Med Ordered
[2024-09-03 16:17] LABS: Glucose, Whole Blood 191 mg/dL (60-115)
[2024-09-03 19:23] LABS: Glucose, Whole Blood 183 mg/dL (60-115)
[2024-09-03] MEDS: Insulin Glargine,Hum.rec.anlog 100 UNIT/ML 10 ML VIAL 10 UNIT SUBCUT (20:12)
[2024-09-04 03:34] VITALS: BP 162/84; PULSE 61; RESP 18; TEMP 36.9; O2SAT 96
[2024-09-04] MEDS: oxyCODONE HCl Immed Release 5 MG TABLET PO (05:43)
[2024-09-04 07:12] LABS: Anion Gap 19 (12-20); Blood Urea Nitrogen 77 mg/dL (9-16); Calcium 9.0 mg/dL (8.4-10.2); Carbon Dioxide 23 mmol/L (22-29); Chloride 99 mmol/L (96-108); Creatinine Clr Calc Pharmacy 8.2; Estimated Glomerular Filt Rate 7; Potassium 6.0 mmol/L (3.3-5.1); Sodium 135 mmol/L (135-145)
[2024-09-04 07:39] LABS: Glucose, Whole Blood 146 mg/dL (60-115)
[2024-09-04 07:43] VITALS: BP 162/71; PULSE 68; RESP 18
--- NOTE | 2024-09-04 10:32 | W.PM.DNNEP ---
Subjective Subjective Date of Service: 09/04/24 This patient was seen during dialysis. Interval history: following for management of ESRD on HD while here for treatment of dry gangrene and ischemia of right 2nd and third digits. Pt reports pain in right hand (s/p right middle and index finger amputation, s/p debriedment 08/30 and 09/01). Suspect ischemia rather than infection is primary issue. reports outside of finger pain he has no complaints/concerns. Physical Exam Vital Signs: Vital Signs: Last Vital Signs Temp 98.4 F 09/04/24 03:34 Pulse 68 09/04/24 07:43 Resp 18 09/04/24 07:43 BP 162/71 H 09/04/24 07:43 Pulse Ox 96 09/04/24 03:34 O2 Del Method Nasal Cannula 09/04/24 03:34 O2 Flow Rate 2 09/04/24 03:34 BMI result Body Mass Index 27.3 Const: General: lethargic Orientation/consciousness: lethargic Resp: Effort & Inspection: normal respiratory effort and able to speak in complete sentences Auscultation: clear to auscultation bilaterally Cardio: Rate: regular rate Rhythm: regular rhythm Heart sounds: S1 normal heart sound present and S2 normal heart sound present GI: Palpation (GI): Soft to palpation and nontender Skin: Wounds: wounds noted (right hand dressing- s/p amp debridement of 2nd/3rd digits. ) Extrem: General: No edema and No pedal edema Assessment & Plan Assessment and plan (1) ESRD needing dialysis: Status: Acute Plan ESRD on HD MWF access: Right permcath appears euvolemic H&H 10.7 & 34- no indication for procrit at this time phos is 4.9, ensure sevelamer 800mg TID with meals. Calcium 9.0. K elevated this a.m. to 6.0- HD this a.m. will address. low potassium, phosphorous, and sodium diet fluid restriction 1.5L continue to monitor electrolytes renal function studies daily blood pressures elevated- oral BP meds held this a.m. due to HD today. will continue to follow Discussed with Dr Cowart. Time Spent With Patient Time: Total time managing care of this patient today ____ minutes. Procedures Date of Service Date of Service: 09/04/24
[2024-09-04] MEDS: 0.9 % Sodium Chloride Flush 3 ML SYRINGE IVFLUSH ×3 (10:48→19:01)
[2024-09-04 10:55] VITALS: BP 134/94; PULSE 68; RESP 17; TEMP 36.3; O2SAT 95
[2024-09-04 11:12] LABS: Glucose, Whole Blood 170 mg/dL (60-115)
[2024-09-04] MEDS: Sevelamer Carbonate Tablet 800 MG TABLET PO ×2 (11:37→16:22)
--- NOTE | 2024-09-04 13:26 | PM.PNORT ---
Subjective Subjective Date of Service: 09/04/24 Interval history: Postop day 7 status post right middle and index finger amputations and postop day 5 status post ray resection of right 3rd metacarpal, status post I and D on 09/01/2024 Resting comfortably in bed this morning Pain appears well managed Patient expresses dissatisfaction with his current course of treatment, and states that he would like to speak to a surgeon as soon as possible to discuss further surgical intervention Patient repeatedly gestures to his right wrist stating ?cut it off? Patient also reports that he has noticed a foul odor in his right hand Physical Exam Vital Signs: Vital Signs: Last Vital Signs Temp 97.3 F 09/04/24 10:55 Pulse 68 09/04/24 10:55 Resp 17 09/04/24 10:55 BP 134/94 H 09/04/24 10:55 Pulse Ox 95 09/04/24 10:55 O2 Del Method Room Air 09/04/24 10:55 O2 Flow Rate 2 09/04/24 03:34 BMI result Body Mass Index 27.3 Extrem: Other: Dressing on right hand clean, dry, intact Once dressing is removed, there is significant drainage from the dorsal aspect of the wound, and eschar appears to have formed more in the volar aspect There does appear to be some additional skin loss on the dorsal aspect There is erythema noted on the palm of the hand extending proximally from the wound Patient is able to flex and extend the remaining digits of the right hand without difficulty Compartments soft, nontender Distal sensation intact Capillary refill brisk Procedures Date of Service Date of Service: 09/04/24 Progress Note: A&P Assessment and plan (1) 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: Status: Acute (2) Status post amputation of finger of right hand: Status: Acute (3) Dry gangrene: Status: Acute (4) Necrosis of finger: Status: Acute Plan Continue pain management Continue IV antibiotics Silver alginate dressing changed today Patient is educated that we do not have a hand surgeon available right now to be able to discuss further surgical intervention with him Patient is upset by this I feel that if the patient would like to discuss surgical intervention as soon as possible, especially given the fact that his wound appears to be draining more and necrosis appears to be spreading, it might be most feasible to transfer the patient to a hospital with hand surgery service available Continue with all other recommendations per Medicine Time Spent With Patient Time: Total time managing care of this patient today ____ minutes. Quality Stroke Does the patient have a stroke diagnosis?: No VTE Prior VTE?: No VTE Risk Level:: Medical - moderate - high VTE Device Contraindication: Treatment Not Indicated VTE Drug Contraindication: N/A - Med Ordered
[2024-09-04 13:33] VITALS: RESP 20
[2024-09-04 15:14] VITALS: BP 145/65; PULSE 62; RESP 16; TEMP 36.6; O2SAT 96
--- NOTE | 2024-09-04 15:29 | HO.PM.IMPN ---
Subjective Subjective Date of Service: 09/04/24 Interval History: Continues to have significant pain with demarcation. Appreciate ortho input Review of Systems Denies chest pain Denies shortness of breath Denies nausea vomiting diarrhea Denies fever chills. Physical Exam Vital Signs: Vital Signs: Last Vital Signs Temp 97.9 F 09/04/24 15:14 Pulse 62 09/04/24 15:14 Resp 16 09/04/24 15:14 BP 145/65 H 09/04/24 15:14 Pulse Ox 96 09/04/24 15:14 O2 Del Method Room Air 09/04/24 15:14 O2 Flow Rate 2 09/04/24 03:34 BMI result Body Mass Index 27.3 Const: Other: Awake alert no acute distress Resp: Other: Clear to auscultation bilaterally no rales rhonchi or wheezes Cardio: Other: No S4; positive S1-S2; no S3 murmurs rubs or gallops GI: Other: Soft nontender nondistended normoactive bowel sounds Extrem: Other: Right hand dressing clean dry and intact. Objective Data Active Medications Acetaminophen (Acetaminophen 325 Mg Tablet) 650 mg PO Q6H PRN PRN Reason: Pain, Mild 1-3,fever,headache Last Admin: 09/02/24 22:48 Dose: 650 mg Documented By: ANAM Albuterol Sulfate (Albuterol Sulfate 90 Mcg 8 Gm Inhaler) 2 puff INHALE Q4H PRN PRN Reason: Wheezing Allopurinol (Allopurinol 100 Mg Tablet) 100 mg PO MOWEFR@1600 [facility] Last Admin: 09/02/24 16:52 Dose: 100 mg Documented By: DESTINY Amlodipine Besylate (Amlodipine Besylate 10 Mg Tablet) 10 mg PO DAILY [facility]; Protocol Last Admin: 09/04/24 10:48 Dose: 10 mg Documented By: KUMAR Aspirin (Aspirin Enteric Coated 81 Mg Tablet.) 81 mg PO MOWEFR@1600 [facility] Last Admin: 09/02/24 16:52 Dose: 81 mg Documented By: DESTINY Aspirin (Aspirin Enteric Coated 81 Mg Tablet.) 81 mg PO SUTUTHSA@0900 [facility] Last Admin: 09/03/24 08:47 Dose: 81 mg Documented By: KUMAR Atorvastatin Calcium (Atorvastatin Calcium 40 Mg Tablet) 40 mg PO MOWEFR@1600 [facility] Last Admin: 09/02/24 16:52 Dose: 40 mg Documented By: DESTINY Atorvastatin Calcium (Atorvastatin Calcium 40 Mg Tablet) 40 mg PO SUTUTHSA@0900 [facility] Last Admin: 09/03/24 08:47 Dose: 40 mg Documented By: KUMAR Calcium Carbonate (Calcium Carbonate 750 Mg Tab.Chew) 750 mg PO Q4H PRN PRN Reason: Heartburn Carvedilol (Carvedilol 12.5 Mg Tablet) 12.5 mg PO BID [facility]; Protocol Last Admin: 09/04/24 10:48 Dose: 12.5 mg Documented By: KUMAR Dextrose (Dextrose 50 % 25 Gm/50 Ml Syringe) 25 gm IVPUSH Q15M PRN; Protocol PRN Reason: per Hypoglycemia Standing Ord. Last Admin: 08/27/24 07:59 Dose: 25 gm Documented By: TRUDY Docusate Sodium (Docusate Sodium 100 Mg Capsule) 100 mg PO DAILY [facility] Last Admin: 09/04/24 10:47 Dose: 100 mg Documented By: KUMAR Doxazosin Mesylate (Doxazosin Mesylate 2 Mg Tablet) 4 mg PO BEDTIME [facility]; Protocol Last Admin: 09/03/24 20:11 Dose: 4 mg Documented By: YAKOV-HEIDI Fluticasone/Umeclidinium/Vilanterol (Fluticasone/Umeclidinium/Vilanterol 100/62.5/25 Blst.W.Dev) 1 puff INHALE RDAILY [facility] Last Admin: 09/04/24 08:47 Dose: Not Given Documented By: MINNA Non-Admin Reason: in dilaysis Furosemide (Furosemide 40 Mg Tablet) 80 mg PO MOWEFR@1600 [facility]; Protocol Last Admin: 09/02/24 16:52 Dose: 80 mg Documented By: DESTINY Furosemide (Furosemide 40 Mg Tablet) 80 mg PO SUTUTHSA@0900 [facility]; Protocol Last Admin: 09/03/24 08:44 Dose: 80 mg Documented By: KUMAR Glucose (Glucose Gel 15 Gm Gel..Gram.) 15 gm PO Q15M PRN PRN Reason: per Hypoglycemia Standing Ord. Last Admin: 08/25/24 04:50 Dose: 15 gm Documented By: HENRIETTA Heparin Sodium (Porcine) (Heparin Sodium,Porcine 5,000 Unit/Ml Vial) 5,000 unit SUBCUT Q12H [facility] Last Admin: 09/04/24 10:46 Dose: 5,000 unit Documented By: KUMAR Hydrocortisone (Hydrocortisone 1 % Ointment 28.35 Gm Tube) 1 appl TOPICAL BID PRN; Protocol PRN Reason: itching Vancomycin HCl 500 mg/ Sodium (Chloride) 110 mls @ 110 mls/hr IV ONCE ONE Stop: 08/23/24 20:59 Cefepime HCl 1 gm/ Sodium (Chloride) 50 mls @ 100 mls/hr IV Q24H [facility] Last Infusion: 09/03/24 17:27 Dose: Infused Documented By: KUMAR Insulin Glargine (Insulin Glargine,Hum.Rec.Anlog 100 Unit/Ml 10 Ml Vial) 10 unit SUBCUT BEDTIME [facility] Last Admin: 09/03/24 20:12 Dose: 10 unit Documented By: N-DESSK Insulin Human Lispro (Insulin Lispro 100 Unit/Ml 3 Ml Vial) 0 unit SUBCUT QIDACHS [facility]; Protocol Last Admin: 09/04/24 11:37 Dose: 2 unit Documented By: KUMAR Levetiracetam (Levetiracetam 1,000 Mg Tablet) 1,000 mg PO BID [facility] Last Admin: 09/04/24 10:48 Dose: 1,000 mg Documented By: KUMAR Losartan Potassium (Losartan Potassium 50 Mg Tablet) 50 mg PO SUTUTHSA@0900 [facility]; Protocol Last Admin: 09/03/24 08:48 Dose: 50 mg Documented By: KUMAR Losartan Potassium (Losartan Potassium 50 Mg Tablet) 50 mg PO MOWEFR@1600 [facility]; Protocol Magnesium Hydroxide (Milk Of Magnesia 30 Ml Oral.Susp) 30 ml PO DAILY PRN PRN Reason: Constipation Melatonin (Melatonin 3 Mg Tablet) 6 mg PO BEDTIME PRN PRN Reason: Insomnia Last Admin: 09/02/24 22:47 Dose: 6 mg Documented By: ODRISM Morphine Sulfate (Morphine Sulfate 4 Mg/Ml Cartridge) 4 mg IVPUSH Q3H PRN; Protocol PRN Reason: Pain, Severe (Pain Scale 7-10) Last Admin: 09/04/24 13:33 Dose: 4 mg Documented By: KUMAR Omeprazole (Omeprazole 20 Mg Capsule.) 20 mg PO DAILY@0630 [facility] Last Admin: 09/04/24 05:36 Dose: 20 mg Documented By: RAY Ondansetron HCl (Ondansetron Hcl 4 Mg/2 Ml Vial) 4 mg IVPUSH Q8H PRN PRN Reason: Nausea and Vomiting Oxycodone HCl (Oxycodone Hcl Immed Release 5 Mg Tablet) 5 mg PO Q4H PRN PRN Reason: pain, sev Last Admin: 09/04/24 05:43 Dose: 5 mg Documented By: RAY Pharmacy Consult (Consult Rx Vancomycin Dosing) 1 each MISCELLANE DAILY PRN PRN Reason: Consult order Pregabalin (Pregabalin 75 Mg Capsule) 75 mg PO DAILY [facility] Last Admin: 09/04/24 10:48 Dose: 75 mg Documented By: KUMAR Sevelamer Carbonate (Sevelamer Carbonate Tablet 800 Mg Tablet) 800 mg PO TIDWM [facility] Last Admin: 09/04/24 11:37 Dose: 800 mg Documented By: KUMAR Sodium Chloride (0.9 % Sodium Chloride Flush 3 Ml Syringe) 3 ml IVFLUSH QSHIFT [facility] Last Admin: 09/04/24 10:48 Dose: 3 ml Documented By: KUMAR Labs 09/02/24 05:46 09/04/24 05:40 Labs: Laboratory Results - last 24 hr 09/03/24 09/03/24 09/04/24 16:13 19:19 05:40 Anion Gap 19 Estim Creat Clear Calc 8.2 Estimated GFR 7 POC Glucose 191 H 183 H Random Glucose 187 H Calcium 9.0 D Phosphorus 4.9 H 09/04/24 09/04/24 07:30 11:04 Anion Gap Estim Creat Clear Calc Estimated GFR POC Glucose 146 H 170 H Random Glucose Calcium Phosphorus Assessment and Plan (1) Dry gangrene: Status: Acute Assessment and Plan: 69yo M with DM2, ESRD on HD MWF, PVD, 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 He did not think he had anything to offer specifically, and just recommended ongoing source control until we reach viable tissue- whether debridement or ultimately amputation. He suspects major issue is ischemia from vasculopathy rather than infection. Discussed with Dr Witt and we will continue to manage the pt here. If worsening infection, will need transmetacarpal or even transradial amputation - daily dressing changes per Ortho - vancomycin since 08/22(13)... cefepime 08/31(5 -requested input from ID and vascular surgery... Further plans based on input. [facility] with no available surgical beds; requested updated vascular input 2.ESRD on HD with hyperkalemia - HD MWF, -follow renals and divalent 3.HTN -Acceptable control on current therapies -adjust as indicated 4.DM2 -acceptable control on current therapies. No further hypoglycemia -lispro correctional scale... Adjust as indicated heparin In my clinical judgment, the patient requires continued inpatient hospitalization for the following reasons: IV ABX, surgical management (2) ESRD needing dialysis: Status: Acute Quality Stroke Does the patient have a stroke diagnosis?: No VTE Prior VTE?: No VTE Risk Level:: Medical - moderate - high VTE Device Contraindication: Treatment Not Indicated VTE Drug Contraindication: N/A - Med Ordered
[2024-09-04] MEDS: Aspirin Enteric Coated 81 MG TABLET.DR PO (15:31)
[2024-09-04 16:15] LABS: Glucose, Whole Blood 310 mg/dL (60-115)
[2024-09-04 19:12] VITALS: BP 152/70; PULSE 68; RESP 18; TEMP 37; O2SAT 94
[2024-09-04 19:20] LABS: Glucose, Whole Blood 275 mg/dL (60-115)
[2024-09-04] MEDS: Insulin Glargine,Hum.rec.anlog 100 UNIT/ML 10 ML VIAL 10 UNIT SUBCUT (19:30)
[2024-09-05] VITALS (7 sets, daily range): BP systolic 127–177; BP diastolic 70–81; PULSE 58–64; RESP 16–20; TEMP 36.3–36.7; O2SAT 93–97
[2024-09-05] MEDS: oxyCODONE HCl Immed Release 5 MG TABLET PO ×2 (05:21→12:13)
[2024-09-05 07:30] LABS: Glucose, Whole Blood 166 mg/dL (60-115)
[2024-09-05] MEDS: Aspirin Enteric Coated 81 MG TABLET.DR PO (07:58)
[2024-09-05] MEDS: Sevelamer Carbonate Tablet 800 MG TABLET PO ×3 (07:58→16:32)
[2024-09-05] MEDS: 0.9 % Sodium Chloride Flush 3 ML SYRINGE IVFLUSH ×3 (08:01→23:55)
[2024-09-05] MEDS: Fluticasone/Umeclidinium/Vilanterol 100/62.5/25 BLST.W.DEV 1 PUFF INHALE (08:19)
[2024-09-05 11:44] LABS: Glucose, Whole Blood 171 mg/dL (60-115)
[2024-09-05 15:27] LABS: Glucose, Whole Blood 206 mg/dL (60-115)
--- NOTE | 2024-09-05 15:59 | PM.PNORT ---
Subjective Subjective Date of Service: 09/05/24 Interval history: Postop day 7 status post right middle and index finger amputations and postop day 5 status post ray resection of right 3rd metacarpal, status post I and D on 09/01/2024 Resting comfortably in bed this morning Pain appears well managed Patient appears much more comfortable today, and is markedly less agitated upon interview No other acute complaints Physical Exam Vital Signs: Vital Signs: Last Vital Signs Temp 97.5 F 09/05/24 15:02 Pulse 58 09/05/24 15:02 Resp 18 09/05/24 15:02 BP 157/72 H 09/05/24 15:02 Pulse Ox 94 09/05/24 15:02 O2 Del Method Room Air 09/05/24 15:02 O2 Flow Rate 2 09/04/24 03:34 BMI result Body Mass Index 27.3 Extrem: Other: Dressing on right hand clean, dry, intact Once dressing is removed, there is significant drainage from the dorsal aspect of the wound, and eschar appears to have formed more in the volar aspect There does appear to be some additional skin loss on the dorsal aspect There is erythema noted on the palm of the hand extending proximally from the wound Patient is able to flex and extend the remaining digits of the right hand without difficulty Compartments soft, nontender Distal sensation intact Capillary refill brisk Procedures Date of Service Date of Service: 09/05/24 Progress Note: A&P Assessment and plan (1) 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: Status: Acute (2) Status post amputation of finger of right hand: Status: Acute (3) Dry gangrene: Status: Acute (4) Necrosis of finger: Status: Acute Plan Continue pain management Continue IV antibiotics Silver alginate dressing changed today Patient has been seen by vascular surgery, who feels that the patient is stable enough to remain here pending hand surgery eval on Monday Patient understands this and is amenable to this plan Continue with all other recommendations per Medicine Time Spent With Patient Time: Total time managing care of this patient today ____ minutes. Quality Stroke Does the patient have a stroke diagnosis?: No VTE Prior VTE?: No VTE Risk Level:: Medical - moderate - high VTE Device Contraindication: Treatment Not Indicated VTE Drug Contraindication: N/A - Med Ordered
--- NOTE | 2024-09-05 16:11 | P.PNIM_ITS ---
Subjective Subjective Date of Service: 09/05/24 Interval History: Appears much more comfortable today. Pain control adequate. Discussed with son as executive community planning Review of Systems Denies chest pain Denies shortness of breath Denies nausea vomiting diarrhea Denies fever chills. Physical Exam 2 Vital Signs: Vital Signs: Last Vital Signs Temp 97.5 F 09/05/24 15:02 Pulse 58 09/05/24 15:02 Resp 18 09/05/24 15:02 BP 157/72 H 09/05/24 15:02 Pulse Ox 94 09/05/24 15:02 O2 Del Method Room Air 09/05/24 15:02 O2 Flow Rate 2 09/04/24 03:34 BMI result Body Mass Index 27.3 Const: Other: Awake alert no acute distress Resp: Other: Clear to auscultation bilaterally no rales rhonchi or wheezes Cardio: Other: No S4; positive S1-S2; no S3 murmurs rubs or gallops GI: Other: Soft nontender nondistended normoactive bowel sounds Extrem: Other: Right hand dressing clean dry and intact. Objective Data Active Medications Acetaminophen (Acetaminophen 325 Mg Tablet) 650 mg PO Q6H PRN PRN Reason: Pain, Mild 1-3,fever,headache Last Admin: 09/04/24 19:29 Dose: 650 mg Documented By: PATRICIA Albuterol Sulfate (Albuterol Sulfate 90 Mcg 8 Gm Inhaler) 2 puff INHALE Q4H PRN PRN Reason: Wheezing Allopurinol (Allopurinol 100 Mg Tablet) 100 mg PO MOWEFR@1600 [facility] Last Admin: 09/04/24 15:31 Dose: 100 mg Documented By: KUMAR Amlodipine Besylate (Amlodipine Besylate 10 Mg Tablet) 10 mg PO DAILY [facility]; Protocol Last Admin: 09/05/24 07:58 Dose: 10 mg Documented By: KUMAR Aspirin (Aspirin Enteric Coated 81 Mg Tablet.) 81 mg PO MOWEFR@1600 [facility] Last Admin: 09/04/24 15:31 Dose: 81 mg Documented By: KUMAR Aspirin (Aspirin Enteric Coated 81 Mg Tablet.) 81 mg PO SUTUTHSA@0900 [facility] Last Admin: 09/05/24 07:58 Dose: 81 mg Documented By: KUAMR Atorvastatin Calcium (Atorvastatin Calcium 40 Mg Tablet) 40 mg PO MOWEFR@1600 [facility] Last Admin: 09/04/24 15:31 Dose: 40 mg Documented By: KUMAR Atorvastatin Calcium (Atorvastatin Calcium 40 Mg Tablet) 40 mg PO SUTUTHSA@0900 [facility] Last Admin: 09/05/24 07:59 Dose: 40 mg Documented By: KUMAR Calcium Carbonate (Calcium Carbonate 750 Mg Tab.Chew) 750 mg PO Q4H PRN PRN Reason: Heartburn Carvedilol (Carvedilol 12.5 Mg Tablet) 12.5 mg PO BID [facility]; Protocol Last Admin: 09/05/24 07:59 Dose: 12.5 mg Documented By: KUMAR Dextrose (Dextrose 50 % 25 Gm/50 Ml Syringe) 25 gm IVPUSH Q15M PRN; Protocol PRN Reason: per Hypoglycemia Standing Ord. Last Admin: 08/27/24 07:59 Dose: 25 gm Documented By: TRUDY Docusate Sodium (Docusate Sodium 100 Mg Capsule) 100 mg PO DAILY [facility] Last Admin: 09/05/24 07:59 Dose: 100 mg Documented By: KUMAR Doxazosin Mesylate (Doxazosin Mesylate 2 Mg Tablet) 4 mg PO BEDTIME [facility]; Protocol Last Admin: 09/04/24 19:29 Dose: 4 mg Documented By: PATRICIA Fluticasone/Umeclidinium/Vilanterol (Fluticasone/Umeclidinium/Vilanterol 100/62.5/25 Blst.W.Dev) 1 puff INHALE [facility] Last Admin: 09/05/24 08:19 Dose: 1 puff Documented By: LEYDI Furosemide (Furosemide 40 Mg Tablet) 80 mg PO MOWEFR@1600 [facility]; Protocol Last Admin: 09/04/24 15:31 Dose: 80 mg Documented By: KUMAR Furosemide (Furosemide 40 Mg Tablet) 80 mg PO SUTUTHSA@0900 [facility]; Protocol Last Admin: 09/05/24 08:00 Dose: 80 mg Documented By: KUMAR Glucose (Glucose Gel 15 Gm Gel..Gram.) 15 gm PO Q15M PRN PRN Reason: per Hypoglycemia Standing Ord. Last Admin: 08/25/24 04:50 Dose: 15 gm Documented By: HENRIETTA Heparin Sodium (Porcine) (Heparin Sodium,Porcine 5,000 Unit/Ml Vial) 5,000 unit SUBCUT Q12H [facility] Last Admin: 09/05/24 12:10 Dose: 5,000 unit Documented By: KUMAR Hydrocortisone (Hydrocortisone 1 % Ointment 28.35 Gm Tube) 1 appl TOPICAL BID PRN; Protocol PRN Reason: itching Vancomycin HCl 500 mg/ Sodium (Chloride) 110 mls @ 110 mls/hr IV ONCE ONE Stop: 08/23/24 20:59 Cefepime HCl 1 gm/ Sodium (Chloride) 50 mls @ 100 mls/hr IV Q24H [facility] Last Infusion: 09/04/24 16:00 Dose: Infused Documented By: KUMAR Insulin Glargine (Insulin Glargine,Hum.Rec.Anlog 100 Unit/Ml 10 Ml Vial) 10 unit SUBCUT BEDTIME [facility] Last Admin: 09/04/24 19:30 Dose: 10 unit Documented By: PATRICIA Insulin Human Lispro (Insulin Lispro 100 Unit/Ml 3 Ml Vial) 0 unit SUBCUT QIDACHS [facility]; Protocol Last Admin: 09/05/24 12:10 Dose: 2 unit Documented By: KUMAR Levetiracetam (Levetiracetam 1,000 Mg Tablet) 1,000 mg PO BID [facility] Last Admin: 09/05/24 07:58 Dose: 1,000 mg Documented By: KUMAR Losartan Potassium (Losartan Potassium 50 Mg Tablet) 50 mg PO SUTUTHSA@0900 [facility]; Protocol Last Admin: 09/05/24 07:59 Dose: 50 mg Documented By: KUMAR Losartan Potassium (Losartan Potassium 50 Mg Tablet) 50 mg PO MOWEFR@1600 [facility]; Protocol Last Admin: 09/04/24 15:32 Dose: 50 mg Documented By: KUMAR Magnesium Hydroxide (Milk Of Magnesia 30 Ml Oral.Susp) 30 ml PO DAILY PRN PRN Reason: Constipation Melatonin (Melatonin 3 Mg Tablet) 6 mg PO BEDTIME PRN PRN Reason: Insomnia Last Admin: 09/04/24 19:29 Dose: 6 mg Documented By: PATRICIA Morphine Sulfate (Morphine Sulfate 4 Mg/Ml Cartridge) 4 mg IVPUSH Q3H PRN; Protocol PRN Reason: Pain, Severe (Pain Scale 7-10) Last Admin: 09/05/24 09:45 Dose: 4 mg Documented By: KUMAR Omeprazole (Omeprazole 20 Mg Capsule.) 20 mg PO DAILY@0630 [facility] Last Admin: 09/05/24 05:18 Dose: 20 mg Documented By: JOSEQC Ondansetron HCl (Ondansetron Hcl 4 Mg/2 Ml Vial) 4 mg IVPUSH Q8H PRN PRN Reason: Nausea and Vomiting Oxycodone HCl (Oxycodone Hcl Immed Release 5 Mg Tablet) 5 mg PO Q4H PRN PRN Reason: pain, sev Last Admin: 09/05/24 12:13 Dose: 5 mg Documented By: KUMAR Pharmacy Consult (Consult Rx Vancomycin Dosing) 1 each MISCELLANE DAILY PRN PRN Reason: Consult order Pregabalin (Pregabalin 75 Mg Capsule) 75 mg PO DAILY [facility] Last Admin: 09/05/24 07:59 Dose: 75 mg Documented By: KUMAR Sevelamer Carbonate (Sevelamer Carbonate Tablet 800 Mg Tablet) 800 mg PO TIDWM [facility] Last Admin: 09/05/24 12:11 Dose: 800 mg Documented By: KUMAR Sodium Chloride (0.9 % Sodium Chloride Flush 3 Ml Syringe) 3 ml IVFLUSH QSHIFT [facility] Last Admin: 09/05/24 08:01 Dose: 3 ml Documented By: KUMAR Labs 09/02/24 05:46 09/04/24 05:40 Labs: Laboratory Results - last 24 hr 09/04/24 09/04/24 09/04/24 16:11 18:04 19:12 POC Glucose 310 H 275 H Random Vancomycin 12.1 L 09/05/24 09/05/24 09/05/24 07:25 11:39 15:23 POC Glucose 166 H 171 H 206 H Random Vancomycin Assessment and Plan (1) Dry gangrene: Status: Acute Assessment and Plan: 69yo M with DM2, ESRD on HD MWF, PVD, 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 Seen by vascular surgery who states remains dry gangrene and treatment currently is sufficient. Can wait for return of Orthopedics on Monday - vancomycin since 08/22(14)... cefepime 08/31(6) -pain control adjusted; adequate 2.ESRD on HD with hyperkalemia - HD MWF, -follow renals and divalent 3.HTN -Acceptable control on current therapies -adjust as indicated 4.DM2 -acceptable control on current therapies. No further hypoglycemia -lispro correctional scale... Adjust as indicated heparin In my clinical judgment, the patient requires continued inpatient hospitalization for the following reasons: IV ABX, surgical management (2) ESRD needing dialysis: Status: Acute (3) Type 2 diabetes mellitus: Status: Acute Quality Stroke Does the patient have a stroke diagnosis?: No VTE Prior VTE?: No VTE Risk Level:: Medical - moderate - high VTE Device Contraindication: Treatment Not Indicated VTE Drug Contraindication: N/A - Med Ordered
[2024-09-05 19:53] LABS: Glucose, Whole Blood 152 mg/dL (60-115)
[2024-09-05] MEDS: Insulin Glargine,Hum.rec.anlog 100 UNIT/ML 10 ML VIAL 10 UNIT SUBCUT (20:26)
[2024-09-06] VITALS (11 sets, daily range): BP systolic 129–179; BP diastolic 60–97; PULSE 62–82; RESP 18–20; TEMP 36.2–36.9; O2SAT 92–98
[2024-09-06 07:23] LABS: Glucose, Whole Blood 146 mg/dL (60-115)
[2024-09-06] MEDS: oxyCODONE HCl Immed Release 5 MG TABLET PO (07:25)
--- NOTE | 2024-09-06 07:40 | PC.NURSE ---
patient off unit at dialysis
[2024-09-06 11:28] LABS: Glucose, Whole Blood 133 mg/dL (60-115)
--- NOTE | 2024-09-06 12:00 | PC.NURSE ---
Patient returned to unit from dialysis.
[2024-09-06] MEDS: Sevelamer Carbonate Tablet 800 MG TABLET PO ×2 (12:12→16:59)
[2024-09-06] MEDS: 0.9 % Sodium Chloride Flush 3 ML SYRINGE IVFLUSH ×3 (12:12→21:22)
--- NOTE | 2024-09-06 12:45 | HO.PM.IMPN ---
Subjective Subjective Date of Service: 09/06/24 Interval History: No acute issues overnight. Pain control adequate. Appears comfortable Review of Systems Denies chest pain Denies shortness of breath Denies nausea vomiting diarrhea Denies fever chills. Physical Exam Vital Signs: Vital Signs: Last Vital Signs Temp 97.5 F 09/06/24 12:00 Pulse 74 09/06/24 12:10 Resp 18 09/06/24 12:00 BP 179/88 H 09/06/24 12:11 Pulse Ox 98 09/06/24 12:00 O2 Del Method Room Air 09/06/24 12:00 O2 Flow Rate 2 09/04/24 03:34 BMI result Body Mass Index 27.3 Const: Other: Awake alert no acute distress Resp: Other: Clear to auscultation bilaterally no rales rhonchi or wheezes Cardio: Other: No S4; positive S1-S2; no S3 murmurs rubs or gallops GI: Other: Soft nontender nondistended normoactive bowel sounds Extrem: Other: Right hand dressing clean dry and intact. Objective Data Active Medications Acetaminophen (Acetaminophen 325 Mg Tablet) 650 mg PO Q6H PRN PRN Reason: Pain, Mild 1-3,fever,headache Last Admin: 09/06/24 12:09 Dose: 650 mg Documented By: JAGRUTI Albuterol Sulfate (Albuterol Sulfate 90 Mcg 8 Gm Inhaler) 2 puff INHALE Q4H PRN PRN Reason: Wheezing Allopurinol (Allopurinol 100 Mg Tablet) 100 mg PO MOWEFR@1600 [facility] Last Admin: 09/04/24 15:31 Dose: 100 mg Documented By: KUMAR Amlodipine Besylate (Amlodipine Besylate 10 Mg Tablet) 10 mg PO DAILY [facility]; Protocol Last Admin: 09/06/24 12:11 Dose: 10 mg Documented By: JAGRUTI Comments: patient off unit at dialysis at scheduled time. Aspirin (Aspirin Enteric Coated 81 Mg Tablet.) 81 mg PO MOWEFR@1600 [facility] Last Admin: 09/04/24 15:31 Dose: 81 mg Documented By: KUMAR Aspirin (Aspirin Enteric Coated 81 Mg Tablet.) 81 mg PO SUTUTHSA@0900 [facility] Last Admin: 09/05/24 07:58 Dose: 81 mg Documented By: KUMAR Atorvastatin Calcium (Atorvastatin Calcium 40 Mg Tablet) 40 mg PO MOWEFR@1600 [facility] Last Admin: 09/04/24 15:31 Dose: 40 mg Documented By: KUMAR Atorvastatin Calcium (Atorvastatin Calcium 40 Mg Tablet) 40 mg PO SUTUTHSA@0900 [facility] Last Admin: 09/05/24 07:59 Dose: 40 mg Documented By: KUMAR Calcium Carbonate (Calcium Carbonate 750 Mg Tab.Chew) 750 mg PO Q4H PRN PRN Reason: Heartburn Carvedilol (Carvedilol 12.5 Mg Tablet) 12.5 mg PO BID [facility]; Protocol Last Admin: 09/06/24 12:10 Dose: 12.5 mg Documented By: JAGRUTI Comments: patient off unit at dialysis at scheduled time. Dextrose (Dextrose 50 % 25 Gm/50 Ml Syringe) 25 gm IVPUSH Q15M PRN; Protocol PRN Reason: per Hypoglycemia Standing Ord. Last Admin: 08/27/24 07:59 Dose: 25 gm Documented By: TRUDY Docusate Sodium (Docusate Sodium 100 Mg Capsule) 100 mg PO DAILY [facility] Last Admin: 09/06/24 12:11 Dose: 100 mg Documented By: JAGRUTI Comments: patient off unit at dialysis at scheduled time. Doxazosin Mesylate (Doxazosin Mesylate 2 Mg Tablet) 4 mg PO BEDTIME [facility]; Protocol Last Admin: 09/05/24 20:25 Dose: 4 mg Documented By: DOMINIQUE Fluticasone/Umeclidinium/Vilanterol (Fluticasone/Umeclidinium/Vilanterol 100/62.5/25 Blst.W.Dev) 1 puff INHALE RDAILY [facility] Last Admin: 09/06/24 07:57 Dose: Not Given Documented By: EMELIA Non-Admin Reason: See Note Furosemide (Furosemide 40 Mg Tablet) 80 mg PO MOWEFR@1600 [facility]; Protocol Last Admin: 09/04/24 15:31 Dose: 80 mg Documented By: KUMAR Furosemide (Furosemide 40 Mg Tablet) 80 mg PO SUTUTHSA@0900 [facility]; Protocol Last Admin: 09/05/24 08:00 Dose: 80 mg Documented By: KUMAR Glucose (Glucose Gel 15 Gm Gel..Gram.) 15 gm PO Q15M PRN PRN Reason: per Hypoglycemia Standing Ord. Last Admin: 08/25/24 04:50 Dose: 15 gm Documented By: HENRIETTA Heparin Sodium (Porcine) (Heparin Sodium,Porcine 5,000 Unit/Ml Vial) 5,000 unit SUBCUT Q12H [facility] Last Admin: 09/06/24 12:11 Dose: 5,000 unit Documented By: JAGRUTI Comments: patient off unit at dialysis at scheduled time. Hydrocortisone (Hydrocortisone 1 % Ointment 28.35 Gm Tube) 1 appl TOPICAL BID PRN; Protocol PRN Reason: itching Vancomycin HCl 500 mg/ Sodium (Chloride) 110 mls @ 110 mls/hr IV ONCE ONE Stop: 08/23/24 20:59 Cefepime HCl 1 gm/ Sodium (Chloride) 50 mls @ 100 mls/hr IV Q24H [facility] Last Infusion: 09/05/24 17:24 Dose: Infused Documented By: KUMAR Insulin Glargine (Insulin Glargine,Hum.Rec.Anlog 100 Unit/Ml 10 Ml Vial) 10 unit SUBCUT BEDTIME [facility] Last Admin: 09/05/24 20:26 Dose: 10 unit Documented By: DOMINIQUE Insulin Human Lispro (Insulin Lispro 100 Unit/Ml 3 Ml Vial) 0 unit SUBCUT QIDACHS [facility]; Protocol Last Admin: 09/06/24 11:57 Dose: Not Given Documented By: JAGRUTI Non-Admin Reason: No Insulin Coverage Levetiracetam (Levetiracetam 1,000 Mg Tablet) 1,000 mg PO BID [facility] Last Admin: 09/06/24 12:10 Dose: 1,000 mg Documented By: JAGRUTI Comments: patient off unit at dialysis at scheduled time. Losartan Potassium (Losartan Potassium 50 Mg Tablet) 50 mg PO SUTUTHSA@0900 [facility]; Protocol Last Admin: 09/05/24 07:59 Dose: 50 mg Documented By: KUMAR Losartan Potassium (Losartan Potassium 50 Mg Tablet) 50 mg PO MOWEFR@1600 [facility]; Protocol Last Admin: 09/04/24 15:32 Dose: 50 mg Documented By: KUMAR Magnesium Hydroxide (Milk Of Magnesia 30 Ml Oral.Susp) 30 ml PO DAILY PRN PRN Reason: Constipation Melatonin (Melatonin 3 Mg Tablet) 6 mg PO BEDTIME PRN PRN Reason: Insomnia Last Admin: 09/04/24 19:29 Dose: 6 mg Documented By: PATRICIA Morphine Sulfate (Morphine Sulfate 4 Mg/Ml Cartridge) 4 mg IVPUSH Q3H PRN; Protocol PRN Reason: Pain, Severe (Pain Scale 7-10) Last Admin: 09/06/24 04:22 Dose: 4 mg Documented By: DOMINIQUE Omeprazole (Omeprazole 20 Mg Capsule.Dr) 20 mg PO DAILY@0630 [facility] Last Admin: 09/06/24 06:06 Dose: 20 mg Documented By: DOMINIQUE Ondansetron HCl (Ondansetron Hcl 4 Mg/2 Ml Vial) 4 mg IVPUSH Q8H PRN PRN Reason: Nausea and Vomiting Oxycodone HCl (Oxycodone Hcl Immed Release 5 Mg Tablet) 5 mg PO Q4H PRN PRN Reason: pain, sev Last Admin: 09/06/24 07:25 Dose: 5 mg Documented By: JAYME Pharmacy Consult (Consult Rx Vancomycin Dosing) 1 each MISCELLANE DAILY PRN PRN Reason: Consult order Pregabalin (Pregabalin 75 Mg Capsule) 75 mg PO DAILY [facility] Last Admin: 09/06/24 07:25 Dose: 75 mg Documented By: JAYME Sevelamer Carbonate (Sevelamer Carbonate Tablet 800 Mg Tablet) 800 mg PO TIDWM [facility] Last Admin: 09/06/24 12:12 Dose: 800 mg Documented By: JAGRUTI Sodium Chloride (0.9 % Sodium Chloride Flush 3 Ml Syringe) [facility] Last Admin: 09/06/24 12:12 Dose: 3 ml Documented By: JAGRUTI Comments: patient off unit at dialysis at scheduled time. 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 cefepime 08/31(7) -pain control adjusted; adequate 2.ESRD on HD with hyperkalemia - HD MWF, -follow renals and divalent 3.HTN -Acceptable control on current therapies -adjust as indicated 4.DM2 -acceptable control on current therapies. No further hypoglycemia -lispro correctional scale... Adjust as indicated heparin In my clinical judgment, the patient requires continued inpatient hospitalization for the following reasons: IV ABX, surgical management (2) Osteomyelitis: Status: Acute (3) Type 2 diabetes mellitus: Status: Acute Quality Stroke Does the patient have a stroke diagnosis?: No VTE Prior VTE?: No VTE Risk Level:: Medical - moderate - high VTE Device Contraindication: Treatment Not Indicated VTE Drug Contraindication: N/A - Med Ordered
--- NOTE | 2024-09-06 16:00 | HO.SKINPHOTO ---
Location: Right AKA Location: Posterior Left Lower Leg Location: Left Big Toe Dressing changed per order. After changing left lower leg dressing, patient had an increase in pain and discomfort - raising voice to nurse, constantly moving, trying to take dressing off. Athletic Scout called to bedside, patient expressed squeezing of wound. Gauze dressing loosened, PRN pain medication administered, patient continued to appear in discomfort, patient repositioned, leg elevated. After about 20 minutes patient calmed down and appears to be resting comfortably in bed. Inerpreter used to complete 16:00 assessment.
[2024-09-06 16:16] LABS: Glucose, Whole Blood 187 mg/dL (60-115)
[2024-09-06] MEDS: Aspirin Enteric Coated 81 MG TABLET.DR PO (17:00)
[2024-09-06] MEDS: Milk of Magnesia 30 ML ORAL.SUSP PO (17:00)
--- NOTE | 2024-09-06 18:22 | P.PNOP_ITS ---
Subjective Subjective Date of Service: 09/06/24 Interval history: Postop day 8 status post right middle and index finger amputations and postop day 6 status post ray resection of right 3rd metacarpal, status post I and D on 09/01/2024 Patient is at dialysis this moring He is sleeping but arousable Pain appears well managed No other acute complaints Physical Exam 2 Vital Signs: Vital Signs: Last Vital Signs Temp 97.1 F 09/06/24 15:09 Pulse 69 09/06/24 15:09 Resp 18 09/06/24 15:09 BP 158/74 H 09/06/24 17:00 Pulse Ox 93 09/06/24 15:09 O2 Del Method Room Air 09/06/24 15:09 O2 Flow Rate 2 09/04/24 03:34 BMI result Body Mass Index 27.3 Extrem: Other: Wound appears dry, no active drainge or moisture surrounding the demarcated areas. 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 * Patient has been seen by vascular surgery, who feels that the patient is stable enough to remain here pending hand surgery eval on Monday-->patient is on the Add on List for the OR for Monday with AR * Patient understands this and is amenable to this plan * Continue with all other recommendations per Medicine * Make NPO after midnight monday Time Spent With Patient Time: Total time managing care of this patient today ____ minutes. Quality Stroke Does the patient have a stroke diagnosis?: No VTE Prior VTE?: No VTE Risk Level:: Medical - moderate - high VTE Device Contraindication: Treatment Not Indicated VTE Drug Contraindication: N/A - Med Ordered
[2024-09-06 20:07] LABS: Glucose, Whole Blood 91 mg/dL (60-115)
[2024-09-06] MEDS: Insulin Glargine,Hum.rec.anlog 100 UNIT/ML 10 ML VIAL 10 UNIT SUBCUT (21:18)
[2024-09-07] VITALS (7 sets, daily range): BP systolic 120–170; BP diastolic 56–77; PULSE 65–72; RESP 17–20; TEMP 36.4–36.8; O2SAT 92–98
[2024-09-07 07:27] LABS: Glucose, Whole Blood 75 mg/dL (60-115)
[2024-09-07] MEDS: Sevelamer Carbonate Tablet 800 MG TABLET PO ×3 (08:17→17:11)
[2024-09-07] MEDS: Aspirin Enteric Coated 81 MG TABLET.DR PO (08:18)
[2024-09-07] MEDS: 0.9 % Sodium Chloride Flush 3 ML SYRINGE IVFLUSH ×3 (08:21→20:25)
[2024-09-07] MEDS: Fluticasone/Umeclidinium/Vilanterol 100/62.5/25 BLST.W.DEV 1 PUFF INHALE (08:38)
[2024-09-07 11:22] LABS: Glucose, Whole Blood 194 mg/dL (60-115)
--- NOTE | 2024-09-07 11:39 | P.PNOP_ITS ---
Subjective Subjective Date of Service: 09/07/24 Interval history: Postop day 9 status post right middle and index finger amputations and postop day 7 status post ray resection of right 3rd metacarpal, status post I and D on 09/01/2024 Patient is asleep resting comfortably in bed He is sleeping but arousable Pain appears well managed No other acute complaints Physical Exam 2 Vital Signs: Vital Signs: Last Vital Signs Temp 98.2 F 09/07/24 07:39 Pulse 72 09/07/24 08:43 Resp 20 09/07/24 08:43 BP 170/77 H 09/07/24 07:39 Pulse Ox 95 09/07/24 07:39 O2 Del Method Room Air 09/07/24 07:39 O2 Flow Rate 2 09/04/24 03:34 BMI result Body Mass Index 27.3 Extrem: Other: Wound itself has some moisture with foul odor, no active drainage or moisture surrounding the demarcated areas. The patient does have good pulses proximally (pictures from 09/06/24) Procedures Date of Service Date of Service: 09/07/24 Progress Note: A&P Assessment and plan (1) 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: Status: Acute (2) Status post amputation of finger of right hand: Status: Acute (3) Dry gangrene: Status: Acute (4) Necrosis of finger: Status: Acute Plan * Continue pain management * Continue IV antibiotics * Silver alginate dressing changed today * Patient has been seen by vascular surgery, who feels that the patient is stable enough to remain here pending hand surgery eval on Monday-->patient is on the Add on List for the OR for Monday with AR * Patient understands this and is amenable to this plan * Continue with all other recommendations per Medicine * Make NPO after midnight monday Time Spent With Patient Time: Total time managing care of this patient today ____ minutes. Quality Stroke Does the patient have a stroke diagnosis?: No VTE Prior VTE?: No VTE Risk Level:: Medical - moderate - high VTE Device Contraindication: Treatment Not Indicated VTE Drug Contraindication: N/A - Med Ordered
--- NOTE | 2024-09-07 13:59 | P.PNIM_ITS ---
Subjective Subjective Date of Service: 09/07/24 Interval History: No acute issues overnight. Pain control adequate Review of Systems Denies chest pain Denies shortness of breath Denies nausea vomiting diarrhea Denies fever chills. Physical Exam 2 Vital Signs: Vital Signs: Last Vital Signs Temp 97.5 F 09/07/24 12:00 Pulse 66 09/07/24 12:00 Resp 18 09/07/24 12:00 BP 124/65 09/07/24 12:00 Pulse Ox 93 09/07/24 12:00 O2 Del Method Room Air 09/07/24 12:00 O2 Flow Rate 2 09/04/24 03:34 BMI result Body Mass Index 27.3 Const: Other: Awake alert no acute distress Resp: Other: Clear to auscultation bilaterally no rales rhonchi or wheezes Cardio: Other: No S4; positive S1-S2; no S3 murmurs rubs or gallops GI: Other: Soft nontender nondistended normoactive bowel sounds Extrem: Other: Right hand dressing clean dry and intact. Objective Data Active Medications Acetaminophen (Acetaminophen 325 Mg Tablet) 650 mg PO Q6H PRN PRN Reason: Pain, Mild 1-3,fever,headache Last Admin: 09/06/24 12:09 Dose: 650 mg Documented By: JAGRUTI Albuterol Sulfate (Albuterol Sulfate 90 Mcg 8 Gm Inhaler) 2 puff INHALE Q4H PRN PRN Reason: Wheezing Allopurinol (Allopurinol 100 Mg Tablet) 100 mg PO MOWEFR@1600 [facility] Last Admin: 09/06/24 17:00 Dose: 100 mg Documented By: JAGRUTI Amlodipine Besylate (Amlodipine Besylate 10 Mg Tablet) 10 mg PO DAILY [facility]; Protocol Last Admin: 09/07/24 08:17 Dose: 10 mg Documented By: YESENIA Aspirin (Aspirin Enteric Coated 81 Mg Tablet.) 81 mg PO MOWEFR@1600 [facility] Last Admin: 09/06/24 17:00 Dose: 81 mg Documented By: JAGRUTI Aspirin (Aspirin Enteric Coated 81 Mg Tablet.) 81 mg PO SUTUTHSA@0900 [facility] Last Admin: 09/07/24 08:18 Dose: 81 mg Documented By: YESENIA Atorvastatin Calcium (Atorvastatin Calcium 40 Mg Tablet) 40 mg PO MOWEFR@1600 [facility] Last Admin: 09/06/24 16:59 Dose: 40 mg Documented By: JAGRUTI Atorvastatin Calcium (Atorvastatin Calcium 40 Mg Tablet) 40 mg PO SUTUTHSA@0900 [facility] Last Admin: 09/07/24 08:16 Dose: 40 mg Documented By: YESENIA Calcium Carbonate (Calcium Carbonate 750 Mg Tab.Chew) 750 mg PO Q4H PRN PRN Reason: Heartburn Carvedilol (Carvedilol 12.5 Mg Tablet) 12.5 mg PO BID [facility]; Protocol Last Admin: 09/07/24 08:17 Dose: 12.5 mg Documented By: YESENIA Dextrose (Dextrose 50 % 25 Gm/50 Ml Syringe) 25 gm IVPUSH Q15M PRN; Protocol PRN Reason: per Hypoglycemia Standing Ord. Last Admin: 08/27/24 07:59 Dose: 25 gm Documented By: TRUDY Docusate Sodium (Docusate Sodium 100 Mg Capsule) 100 mg PO DAILY [facility] Last Admin: 09/07/24 08:18 Dose: 100 mg Documented By: YESENIA Doxazosin Mesylate (Doxazosin Mesylate 2 Mg Tablet) 4 mg PO BEDTIME [facility]; Protocol Last Admin: 09/06/24 21:18 Dose: 4 mg Documented By: DOMINIQUE Fluticasone/Umeclidinium/Vilanterol (Fluticasone/Umeclidinium/Vilanterol 100/62.5/25 Blst.W.Dev) 1 puff INHALE AILY [facility] Last Admin: 09/07/24 08:38 Dose: 1 puff Documented By: LEYDI Furosemide (Furosemide 40 Mg Tablet) 80 mg PO MOWEFR@1600 [facility]; Protocol Last Admin: 09/06/24 17:00 Dose: 80 mg Documented By: JAGRUTI Furosemide (Furosemide 40 Mg Tablet) 80 mg PO SUTUTHSA@0900 [facility]; Protocol Last Admin: 09/07/24 08:17 Dose: 80 mg Documented By: YESENIA Glucose (Glucose Gel 15 Gm Gel..Gram.) 15 gm PO Q15M PRN PRN Reason: per Hypoglycemia Standing Ord. Last Admin: 08/25/24 04:50 Dose: 15 gm Documented By: HENRIETTA Heparin Sodium (Porcine) (Heparin Sodium,Porcine 5,000 Unit/Ml Vial) 5,000 unit SUBCUT Q12H [facility] Last Admin: 09/07/24 11:30 Dose: 5,000 unit Documented By: YESENIA Hydrocortisone (Hydrocortisone 1 % Ointment 28.35 Gm Tube) 1 appl TOPICAL BID PRN; Protocol PRN Reason: itching Vancomycin HCl 500 mg/ Sodium (Chloride) 110 mls @ 110 mls/hr IV ONCE ONE Stop: 08/23/24 20:59 Cefepime HCl 1 gm/ Sodium (Chloride) 50 mls @ 100 mls/hr IV Q24H [facility] Last Infusion: 09/06/24 17:57 Dose: Infused Documented By: JAGRUTI Insulin Glargine (Insulin Glargine,Hum.Rec.Anlog 100 Unit/Ml 10 Ml Vial) 10 unit SUBCUT BEDTIME [facility] Last Admin: 09/06/24 21:18 Dose: 10 unit Documented By: DOMINIQUE Insulin Human Lispro (Insulin Lispro 100 Unit/Ml 3 Ml Vial) 0 unit SUBCUT QIDACHS [facility]; Protocol Last Admin: 09/07/24 11:30 Dose: 2 unit Documented By: YESENIA Levetiracetam (Levetiracetam 1,000 Mg Tablet) 1,000 mg PO BID [facility] Last Admin: 09/07/24 08:17 Dose: 1,000 mg Documented By: YESENIA Losartan Potassium (Losartan Potassium 50 Mg Tablet) 50 mg PO SUTUTHSA@0900 [facility]; Protocol Last Admin: 09/07/24 08:16 Dose: 50 mg Documented By: YESENIA Losartan Potassium (Losartan Potassium 50 Mg Tablet) 50 mg PO MOWEFR@1600 [facility]; Protocol Last Admin: 09/06/24 16:59 Dose: 50 mg Documented By: JAGRUTI Magnesium Hydroxide (Milk Of Magnesia 30 Ml Oral.Susp) 30 ml PO DAILY PRN PRN Reason: Constipation Last Admin: 09/06/24 17:00 Dose: 30 ml Documented By: JAGRUTI Melatonin (Melatonin 3 Mg Tablet) 6 mg PO BEDTIME PRN PRN Reason: Insomnia Last Admin: 09/04/24 19:29 Dose: 6 mg Documented By: PATRICIA Morphine Sulfate (Morphine Sulfate 4 Mg/Ml Cartridge) 4 mg IVPUSH Q3H PRN; Protocol PRN Reason: Pain, Severe (Pain Scale 7-10) Last Admin: 09/06/24 14:26 Dose: 4 mg Documented By: JAGRUTI Omeprazole (Omeprazole 20 Mg Capsule.) 20 mg PO DAILY@0630 [facility] Last Admin: 09/07/24 05:57 Dose: 20 mg Documented By: DOMINIQUE Ondansetron HCl (Ondansetron Hcl 4 Mg/2 Ml Vial) 4 mg IVPUSH Q8H PRN PRN Reason: Nausea and Vomiting Pharmacy Consult (Consult Rx Vancomycin Dosing) 1 each MISCELLANE DAILY PRN PRN Reason: Consult order Pregabalin (Pregabalin 75 Mg Capsule) 75 mg PO DAILY [facility] Last Admin: 09/07/24 08:17 Dose: 75 mg Documented By: YESENIA Sevelamer Carbonate (Sevelamer Carbonate Tablet 800 Mg Tablet) 800 mg PO TIDWM [facility] Last Admin: 09/07/24 11:31 Dose: 800 mg Documented By: YESENIA Sodium Chloride (0.9 % Sodium Chloride Flush 3 Ml Syringe) 3 ml IVFLUSH QSHIFT [facility] Last Admin: 09/07/24 08:21 Dose: 3 ml Documented By: YESENIA Labs 09/02/24 05:46 09/04/24 05:40 Labs: Laboratory Results - last 24 hr 09/06/24 09/06/24 09/06/24 16:11 18:01 20:02 POC Glucose 187 H 91 Random Vancomycin 15.8 09/07/24 09/07/24 07:12 11:18 POC Glucose 75 194 H Random Vancomycin Assessment and Plan (1) Dry gangrene: Status: Acute Assessment and Plan: 69yo M with DM2, ESRD on HD MWF, PVD, hx R BKA for limb ischemia 04/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 cefepime 08/31(8) -pain control adjusted; adequate 2.ESRD on HD with hyperkalemia - HD MWF, -follow renals and divalent 3.HTN -Acceptable control on current therapies -adjust as indicated 4.DM2 -acceptable control on current therapies. No further hypoglycemia -lispro correctional scale... Adjust as indicated heparin In my clinical judgment, the patient requires continued inpatient hospitalization for the following reasons: IV ABX, surgical management (2) 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: Status: Acute Quality Stroke Does the patient have a stroke diagnosis?: No VTE Prior VTE?: No VTE Risk Level:: Medical - moderate - high VTE Device Contraindication: Treatment Not Indicated VTE Drug Contraindication: N/A - Med Ordered
[2024-09-07 16:35] LABS: Glucose, Whole Blood 138 mg/dL (60-115)
[2024-09-07 20:12] LABS: Glucose, Whole Blood 159 mg/dL (60-115)
[2024-09-07] MEDS: Insulin Glargine,Hum.rec.anlog 100 UNIT/ML 10 ML VIAL 10 UNIT SUBCUT (20:23)
[2024-09-08] VITALS (7 sets, daily range): BP systolic 135–175; BP diastolic 68–77; PULSE 55–98; RESP 16–18; TEMP 36.1–37.1; O2SAT 90–96
[2024-09-08 07:37] LABS: Glucose, Whole Blood 111 mg/dL (60-115)
[2024-09-08] MEDS: Fluticasone/Umeclidinium/Vilanterol 100/62.5/25 BLST.W.DEV 1 PUFF INHALE (08:11)
[2024-09-08] MEDS: Aspirin Enteric Coated 81 MG TABLET.DR PO (08:17)
[2024-09-08] MEDS: Sevelamer Carbonate Tablet 800 MG TABLET PO ×3 (08:18→16:45)
[2024-09-08] MEDS: 0.9 % Sodium Chloride Flush 3 ML SYRINGE IVFLUSH ×3 (08:47→19:55)
[2024-09-08 11:35] LABS: Glucose, Whole Blood 147 mg/dL (60-115)
--- NOTE | 2024-09-08 13:01 | P.PNIM_ITS ---
Subjective Subjective Date of Service: 09/08/24 Interval History: No acute issues overnight. Pain control adequate. Discussed at length with son Review of Systems Denies chest pain Denies shortness of breath Denies nausea vomiting diarrhea Denies fever chills. Physical Exam 2 Vital Signs: Vital Signs: Last Vital Signs Temp 97.3 F 09/08/24 12:00 Pulse 98 09/08/24 12:00 Resp 18 09/08/24 12:00 BP 135/68 09/08/24 12:00 Pulse Ox 94 09/08/24 12:00 O2 Del Method Room Air 09/08/24 12:00 O2 Flow Rate 2 09/04/24 03:34 BMI result Body Mass Index 27.3 Const: Other: Awake alert no acute distress Resp: Other: Clear to auscultation bilaterally no rales rhonchi or wheezes Cardio: Other: No S4; positive S1-S2; no S3 murmurs rubs or gallops GI: Other: Soft nontender nondistended normoactive bowel sounds Extrem: Other: Right hand dressing clean dry and intact. Objective Data Active Medications Acetaminophen (Acetaminophen 325 Mg Tablet) 650 mg PO Q6H PRN PRN Reason: Pain, Mild 1-3,fever,headache Last Admin: 09/06/24 12:09 Dose: 650 mg Documented By: JAGRUTI Albuterol Sulfate (Albuterol Sulfate 90 Mcg 8 Gm Inhaler) 2 puff INHALE Q4H PRN PRN Reason: Wheezing Allopurinol (Allopurinol 100 Mg Tablet) 100 mg PO MOWEFR@1600 [facility] Last Admin: 09/06/24 17:00 Dose: 100 mg Documented By: JAGRUTI Amlodipine Besylate (Amlodipine Besylate 10 Mg Tablet) 10 mg PO DAILY [facility]; Protocol Last Admin: 09/08/24 08:17 Dose: 10 mg Documented By: YESENIA Aspirin (Aspirin Enteric Coated 81 Mg Tablet.) 81 mg PO MOWEFR@1600 [facility] Last Admin: 09/06/24 17:00 Dose: 81 mg Documented By: JAGRUTI Aspirin (Aspirin Enteric Coated 81 Mg Tablet.) 81 mg PO SUTUTHSA@0900 [facility] Last Admin: 09/08/24 08:17 Dose: 81 mg Documented By: YESENIA Atorvastatin Calcium (Atorvastatin Calcium 40 Mg Tablet) 40 mg PO MOWEFR@1600 [facility] Last Admin: 09/06/24 16:59 Dose: 40 mg Documented By: JAGRUTI Atorvastatin Calcium (Atorvastatin Calcium 40 Mg Tablet) 40 mg PO SUTUTHSA@0900 [facility] Last Admin: 09/08/24 08:18 Dose: 40 mg Documented By: YESENIA Calcium Carbonate (Calcium Carbonate 750 Mg Tab.Chew) 750 mg PO Q4H PRN PRN Reason: Heartburn Carvedilol (Carvedilol 12.5 Mg Tablet) 12.5 mg PO BID [facility]; Protocol Last Admin: 09/08/24 08:16 Dose: 12.5 mg Documented By: YESENIA Dextrose (Dextrose 50 % 25 Gm/50 Ml Syringe) 25 gm IVPUSH Q15M PRN; Protocol PRN Reason: per Hypoglycemia Standing Ord. Last Admin: 08/27/24 07:59 Dose: 25 gm Documented By: TRUDY Docusate Sodium (Docusate Sodium 100 Mg Capsule) 100 mg PO DAILY [facility] Last Admin: 09/08/24 08:17 Dose: 100 mg Documented By: YESENIA Doxazosin Mesylate (Doxazosin Mesylate 2 Mg Tablet) 4 mg PO BEDTIME [facility]; Protocol Last Admin: 09/07/24 20:19 Dose: 4 mg Documented By: DOMINIQUE Fluticasone/Umeclidinium/Vilanterol (Fluticasone/Umeclidinium/Vilanterol 100/62.5/25 Blst.W.Dev) 1 puff INHALE AILY [facility] Last Admin: 09/08/24 08:11 Dose: 1 puff Documented By: EVENS Furosemide (Furosemide 40 Mg Tablet) 80 mg PO MOWEFR@1600 [facility]; Protocol Last Admin: 09/06/24 17:00 Dose: 80 mg Documented By: JAGRUTI Furosemide (Furosemide 40 Mg Tablet) 80 mg PO SUTUTHSA@0900 [facility]; Protocol Last Admin: 09/08/24 08:17 Dose: 80 mg Documented By: YESENIA Glucose (Glucose Gel 15 Gm Gel..Gram.) 15 gm PO Q15M PRN PRN Reason: per Hypoglycemia Standing Ord. Last Admin: 08/25/24 04:50 Dose: 15 gm Documented By: HENRIETTA Heparin Sodium (Porcine) (Heparin Sodium,Porcine 5,000 Unit/Ml Vial) 5,000 unit SUBCUT Q12H [facility] Last Admin: 09/08/24 11:43 Dose: 5,000 unit Documented By: YESENIA Hydrocortisone (Hydrocortisone 1 % Ointment 28.35 Gm Tube) 1 appl TOPICAL BID PRN; Protocol PRN Reason: itching Vancomycin HCl 500 mg/ Sodium (Chloride) 110 mls @ 110 mls/hr IV ONCE ONE Stop: 08/23/24 20:59 Cefepime HCl 1 gm/ Sodium (Chloride) 50 mls @ 100 mls/hr IV Q24H [facility] Last Infusion: 09/07/24 17:57 Dose: Infused Documented By: YESENIA Insulin Glargine (Insulin Glargine,Hum.Rec.Anlog 100 Unit/Ml 10 Ml Vial) 10 unit SUBCUT BEDTIME [facility] Last Admin: 09/07/24 20:23 Dose: 10 unit Documented By: DOMINIQUE Insulin Human Lispro (Insulin Lispro 100 Unit/Ml 3 Ml Vial) 0 unit SUBCUT QIDACHS [facility]; Protocol Last Admin: 09/08/24 11:38 Dose: Not Given Documented By: YESENIA Non-Admin Reason: No Insulin Coverage Levetiracetam (Levetiracetam 1,000 Mg Tablet) 1,000 mg PO BID [facility] Last Admin: 09/08/24 08:16 Dose: 1,000 mg Documented By: YESENIA Losartan Potassium (Losartan Potassium 50 Mg Tablet) 50 mg PO SUTUTHSA@0900 [facility]; Protocol Last Admin: 09/08/24 08:16 Dose: 50 mg Documented By: YESENIA Losartan Potassium (Losartan Potassium 50 Mg Tablet) 50 mg PO MOWEFR@1600 [facility]; Protocol Last Admin: 09/06/24 16:59 Dose: 50 mg Documented By: JAGRUTI Magnesium Hydroxide (Milk Of Magnesia 30 Ml Oral.Susp) 30 ml PO DAILY PRN PRN Reason: Constipation Last Admin: 09/06/24 17:00 Dose: 30 ml Documented By: JAGRUTI Melatonin (Melatonin 3 Mg Tablet) 6 mg PO BEDTIME PRN PRN Reason: Insomnia Last Admin: 09/04/24 19:29 Dose: 6 mg Documented By: PATRICIA Morphine Sulfate (Morphine Sulfate 4 Mg/Ml Cartridge) 4 mg IVPUSH Q3H PRN; Protocol PRN Reason: Pain, Severe (Pain Scale 7-10) Last Admin: 09/06/24 14:26 Dose: 4 mg Documented By: JAGRUTI Omeprazole (Omeprazole 20 Mg Capsule.) 20 mg PO DAILY@0630 [facility] Last Admin: 09/08/24 06:15 Dose: Not Given Documented By: DOMINIQUE Non-Admin Reason: pt is too lethargic Ondansetron HCl (Ondansetron Hcl 4 Mg/2 Ml Vial) 4 mg IVPUSH Q8H PRN PRN Reason: Nausea and Vomiting Pharmacy Consult (Consult Rx Vancomycin Dosing) 1 each MISCELLANE DAILY PRN PRN Reason: Consult order Pregabalin (Pregabalin 75 Mg Capsule) 75 mg PO DAILY [facility] Last Admin: 09/08/24 08:17 Dose: 75 mg Documented By: YESENIA Sevelamer Carbonate (Sevelamer Carbonate Tablet 800 Mg Tablet) 800 mg PO TIDWM [facility] Last Admin: 09/08/24 11:44 Dose: 800 mg Documented By: YESENIA Sodium Chloride (0.9 % Sodium Chloride Flush 3 Ml Syringe) 3 ml IVFLUSH QSHIFT [facility] Last Admin: 09/08/24 08:47 Dose: 3 ml Documented By: YESENIA Labs 09/02/24 05:46 09/04/24 05:40 Labs: Laboratory Results - last 24 hr 09/07/24 09/07/24 09/08/24 16:31 20:08 07:33 POC Glucose 138 H 159 H 111 09/08/24 11:28 POC Glucose 147 H Assessment and Plan (1) Dry gangrene: Status: Acute Assessment and Plan: 69yo M with DM2, ESRD on HD MWF, PVD, 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 cefepime 08/31(9).... Would wait till hand surgery re-evaluate in a.m. before DC antibiotics. -pain control adjusted; adequate 2.ESRD on HD with hyperkalemia - HD MWF, -follow renals and divalent 3.HTN -Acceptable control on current therapies -adjust as indicated 4.DM2 -acceptable control on current therapies. No further hypoglycemia -lispro correctional scale... Adjust as indicated heparin In my clinical judgment, the patient requires continued inpatient hospitalization for the following reasons: IV ABX, surgical management Quality Stroke Does the patient have a stroke diagnosis?: No VTE Prior VTE?: No VTE Risk Level:: Medical - moderate - high VTE Device Contraindication: Treatment Not Indicated VTE Drug Contraindication: N/A - Med Ordered
--- NOTE | 2024-09-08 15:51 | P.PNOP_ITS ---
Subjective Subjective Date of Service: 09/08/24 Interval history: Postop day 10 status post right middle and index finger amputations and postop day 8 status post ray resection of right 3rd metacarpal, status post I and D on 09/01/2024 Patient is asleep resting comfortably in bed He is sleeping but arousable Pain appears well managed No other acute complaints Physical Exam 2 Vital Signs: Vital Signs: Last Vital Signs Temp 98.7 F 09/08/24 15:46 Pulse 55 09/08/24 15:46 Resp 18 09/08/24 15:46 BP 155/70 H 09/08/24 15:46 Pulse Ox 92 09/08/24 15:46 O2 Del Method Room Air 09/08/24 15:46 O2 Flow Rate 2 09/04/24 03:34 BMI result Body Mass Index 27.3 Extrem: Other: Pictures taken 09/08/24 area of necrotic tissue seems to be extending in to the ring and small finger odor still present Procedures Date of Service Date of Service: 09/08/24 Progress Note: A&P Assessment and plan (1) 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: Status: Acute (2) Status post amputation of finger of right hand: Status: Acute (3) Dry gangrene: Status: Acute (4) Necrosis of finger: Status: Acute Plan * Continue pain management * Continue IV antibiotics * Silver alginate dressing changed today * Patient has been seen by vascular surgery, who feels that the patient is stable enough to remain here pending hand surgery eval on Monday-->patient is on the Add on List for the OR for Monday with AR * Patient understands this and is amenable to this plan * Continue with all other recommendations per Medicine * NPO after midnight pending eval by Dr Rosales in the morning to determine need for further surgical intervention Time Spent With Patient Time: Total time managing care of this patient today ____ minutes. Quality Stroke Does the patient have a stroke diagnosis?: No VTE Prior VTE?: No VTE Risk Level:: Medical - moderate - high VTE Device Contraindication: Treatment Not Indicated VTE Drug Contraindication: N/A - Med Ordered
--- NOTE | 2024-09-08 15:59 | MHC.CM.PN ---
PT NOT MEDICALLY CLEARED, PENDING EVAL FROM HAND SURGEON TOMORROW DCP TBD: STR EXPECTED, REFERRALS OUT
[2024-09-08 16:17] LABS: Glucose, Whole Blood 154 mg/dL (60-115)
[2024-09-08 20:35] LABS: Glucose, Whole Blood 122 mg/dL (60-115)
[2024-09-09] VITALS (12 sets, daily range): BP systolic 124–175; BP diastolic 63–84; PULSE 58–71; RESP 12–20; TEMP 36.1–37.1; O2SAT 92–100
[2024-09-09] MEDS: 0.9 % Sodium Chloride Flush 3 ML SYRINGE IVFLUSH ×2 (07:24→22:58)
[2024-09-09 07:27] LABS: Glucose, Whole Blood 144 mg/dL (60-115)
--- NOTE | 2024-09-09 07:30 | PC.NURSE ---
07:30 - Patient off unit at dialysis.
--- NOTE | 2024-09-09 11:37 | PC.NURSE ---
Patient returned from dialysis
[2024-09-09 11:47] LABS: Glucose, Whole Blood 138 mg/dL (60-115)
--- NOTE | 2024-09-09 13:20 | P.PNIM_ITS ---
Subjective Subjective Date of Service: 09/09/24 Interval History: Seen and evaluated this morning while in dialysis reports pain in hand at surgery site continues to have ischemic changes no other events Review of Systems Review of Systems: Yes all other systems are reviewed and are negative Physical Exam 2 Vital Signs: Vital Signs: Last Vital Signs Temp 97.3 F 09/09/24 11:45 Pulse 70 09/09/24 11:45 Resp 20 09/09/24 11:45 BP 158/73 H 09/09/24 11:45 Pulse Ox 93 09/09/24 11:45 O2 Del Method Room Air 09/09/24 11:45 O2 Flow Rate 2 09/04/24 03:34 BMI result Body Mass Index 27.3 Const: Other: General resting in bed,in no acute distress. Neck supple no JVD, no distended neck veins. CVS regular rate rhythm, Respiratory lungs clear to auscultation, diminished, no respiratory distress, no wheeze, no rhonchi. Gastrointestinal abdomen soft, non tender, bowel sounds audible Extremities right BKA , left LE wound covered with dressing, left hand post MCP amputation with ischemic changes Neuro non focal , speech clear Objective Data Active Medications Acetaminophen (Acetaminophen 325 Mg Tablet) 650 mg PO Q6H PRN PRN Reason: Pain, Mild 1-3,fever,headache Last Admin: 09/06/24 12:09 Dose: 650 mg Documented By: JAGRUTI Albuterol Sulfate (Albuterol Sulfate 90 Mcg 8 Gm Inhaler) 2 puff INHALE Q4H PRN PRN Reason: Wheezing Allopurinol (Allopurinol 100 Mg Tablet) 100 mg PO MOWEFR@1600 [facility] Last Admin: 09/06/24 17:00 Dose: 100 mg Documented By: JAGRUTI Amlodipine Besylate (Amlodipine Besylate 10 Mg Tablet) 10 mg PO DAILY [facility]; Protocol Last Admin: 09/09/24 11:43 Dose: 10 mg Documented By: JAGRUTI Comments: patient at dialysis at scheduled time. Aspirin (Aspirin Enteric Coated 81 Mg Tablet.) 81 mg PO MOWEFR@1600 [facility] Last Admin: 09/06/24 17:00 Dose: 81 mg Documented By: JAGRUTI Aspirin (Aspirin Enteric Coated 81 Mg Tablet.) 81 mg PO SUTUTHSA@0900 [facility] Last Admin: 09/08/24 08:17 Dose: 81 mg Documented By: YESENIA Atorvastatin Calcium (Atorvastatin Calcium 40 Mg Tablet) 40 mg PO MOWEFR@1600 [facility] Last Admin: 09/06/24 16:59 Dose: 40 mg Documented By: JAGRUTI Atorvastatin Calcium (Atorvastatin Calcium 40 Mg Tablet) 40 mg PO SUTUTHSA@0900 [facility] Last Admin: 09/08/24 08:18 Dose: 40 mg Documented By: YESENIA Calcium Carbonate (Calcium Carbonate 750 Mg Tab.Chew) 750 mg PO Q4H PRN PRN Reason: Heartburn Carvedilol (Carvedilol 12.5 Mg Tablet) 12.5 mg PO BID [facility]; Protocol Last Admin: 09/09/24 11:44 Dose: 12.5 mg Documented By: JAGRUTI Comments: patient at dialysis at scheduled time. Dextrose (Dextrose 50 % 25 Gm/50 Ml Syringe) 25 gm IVPUSH Q15M PRN; Protocol PRN Reason: per Hypoglycemia Standing Ord. Last Admin: 08/27/24 07:59 Dose: 25 gm Documented By: TRUDY Docusate Sodium (Docusate Sodium 100 Mg Capsule) 100 mg PO DAILY [facility] Last Admin: 09/09/24 11:46 Dose: 100 mg Documented By: JAGRUTI Comments: patient at dialysis at scheduled time. Doxazosin Mesylate (Doxazosin Mesylate 2 Mg Tablet) 4 mg PO BEDTIME [facility]; Protocol Last Admin: 09/08/24 19:51 Dose: 4 mg Documented By: SINDHU Fluticasone/Umeclidinium/Vilanterol (Fluticasone/Umeclidinium/Vilanterol 100/62.5/25 Blst.W.Dev) 1 puff INHALE RDAILY [facility] Last Admin: 09/09/24 08:05 Dose: Not Given Documented By: PATTIE Non-Admin Reason: Off unit: Dialysis Furosemide (Furosemide 40 Mg Tablet) 80 mg PO MOWEFR@1600 [facility]; Protocol Last Admin: 09/06/24 17:00 Dose: 80 mg Documented By: JAGRUTI Furosemide (Furosemide 40 Mg Tablet) 80 mg PO SUTUTHSA@0900 [facility]; Protocol Last Admin: 09/08/24 08:17 Dose: 80 mg Documented By: YESENIA Glucose (Glucose Gel 15 Gm Gel..Gram.) 15 gm PO Q15M PRN PRN Reason: per Hypoglycemia Standing Ord. Last Admin: 08/25/24 04:50 Dose: 15 gm Documented By: HENRIETTA Heparin Sodium (Porcine) (Heparin Sodium,Porcine 5,000 Unit/Ml Vial) 5,000 unit SUBCUT Q12H [facility] Last Admin: 09/09/24 11:45 Dose: Not Given Documented By: JAGRUTI Non-Admin Reason: hold for OR Hydrocortisone (Hydrocortisone 1 % Ointment 28.35 Gm Tube) 1 appl TOPICAL BID PRN; Protocol PRN Reason: itching Vancomycin HCl 500 mg/ Sodium (Chloride) 110 mls @ 110 mls/hr IV ONCE ONE Stop: 08/23/24 20:59 Cefepime HCl 1 gm/ Sodium (Chloride) 50 mls @ 100 mls/hr IV Q24H [facility] Last Infusion: 09/08/24 18:05 Dose: Infused Documented By: YESENIA Insulin Glargine (Insulin Glargine,Hum.Rec.Anlog 100 Unit/Ml 10 Ml Vial) 10 unit SUBCUT BEDTIME [facility] Last Admin: 09/08/24 20:59 Dose: Not Given Documented By: SINDHU Non-Admin Reason: poc 122, hold lantus per md, too sleepy for s Insulin Human Lispro (Insulin Lispro 100 Unit/Ml 3 Ml Vial) 0 unit SUBCUT QIDACHS [facility]; Protocol Last Admin: 09/09/24 11:46 Dose: Not Given Documented By: JAGRUTI Non-Admin Reason: No Insulin Coverage Levetiracetam (Levetiracetam 1,000 Mg Tablet) 1,000 mg PO BID [facility] Last Admin: 09/09/24 11:45 Dose: 1,000 mg Documented By: JAGRUTI Comments: patient at dialysis at scheduled time. Losartan Potassium (Losartan Potassium 50 Mg Tablet) 50 mg PO SUTUTHSA@0900 [facility]; Protocol Last Admin: 09/08/24 08:16 Dose: 50 mg Documented By: YESENIA Losartan Potassium (Losartan Potassium 50 Mg Tablet) 50 mg PO MOWEFR@1600 [facility]; Protocol Last Admin: 09/06/24 16:59 Dose: 50 mg Documented By: JAGRUTI Magnesium Hydroxide (Milk Of Magnesia 30 Ml Oral.Susp) 30 ml PO DAILY PRN PRN Reason: Constipation Last Admin: 09/06/24 17:00 Dose: 30 ml Documented By: JAGRUTI Melatonin (Melatonin 3 Mg Tablet) 6 mg PO BEDTIME PRN PRN Reason: Insomnia Last Admin: 09/04/24 19:29 Dose: 6 mg Documented By: PATRICIA Omeprazole (Omeprazole 20 Mg Capsule.Dr) 20 mg PO DAILY@0630 [facility] Last Admin: 09/09/24 06:19 Dose: Not Given Documented By: SINDHU Non-Admin Reason: NPO Ondansetron HCl (Ondansetron Hcl 4 Mg/2 Ml Vial) 4 mg IVPUSH Q8H PRN PRN Reason: Nausea and Vomiting Pharmacy Consult (Consult Rx Vancomycin Dosing) 1 each MISCELLANE DAILY PRN PRN Reason: Consult order Pregabalin (Pregabalin 75 Mg Capsule) 75 mg PO DAILY [facility] Last Admin: 09/09/24 11:45 Dose: 75 mg Documented By: JAGRUTI Comments: patient at dialysis at scheduled time. Sevelamer Carbonate (Sevelamer Carbonate Tablet 800 Mg Tablet) 800 mg PO TIDWM [facility] Last Admin: 09/09/24 11:51 Dose: Not Given Documented By: JAGRUTI Non-Admin Reason: NPO Sodium Chloride (0.9 % Sodium Chloride Flush 3 Ml Syringe) 3 ml IVFLUSH QSHIFT [facility] Last Admin: 09/09/24 07:24 Dose: 3 ml Documented By: JAGRUTI Labs 09/02/24 05:46 09/04/24 05:40 Labs: Laboratory Results - last 24 hr 09/08/24 09/08/24 09/09/24 16:04 20:32 07:13 POC Glucose 154 H 122 H 144 H 09/09/24 11:42 POC Glucose 138 H Assessment and Plan (1) Dry gangrene: Status: Acute Assessment and Plan: 69yo M with DM2, ESRD on HD MWF, PVD, 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 day 9 status post ray resection of right 3rd metacarpal afebrile pain control adequate On vancomycin since 08/22 and cefepime 08/31 hand surgery doing another operation today; details to follow # ESRD on HD with hyperkalemia HD MWF, follow renals and divalent # HTN Acceptable control on current therapies adjust as indicated DM2 No further hypoglycemia. Control ok lispro correctional scale... Adjust as indicated DVT PPx SC heparin In my clinical judgment, the patient requires continued inpatient hospitalization for the following reasons: IV ABX, surgical management (2) Status post amputation of finger of right hand: Status: Acute (3) 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: Status: Acute (4) ESRD needing dialysis: Status: Acute Quality Stroke Does the patient have a stroke diagnosis?: No VTE Prior VTE?: No VTE Risk Level:: Medical - moderate - high VTE Device Contraindication: Treatment Not Indicated VTE Drug Contraindication: N/A - Med Ordered
--- NOTE | 2024-09-09 13:23 | PC.NURSE ---
13:23 - patient being brought down to OR.
[2024-09-09 14:03] LABS: Glucose, Whole Blood 130 mg/dL (60-115)
--- NOTE | 2024-09-09 14:13 | HO.ANESPROP2 ---
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 (Acute) Encephalopathy (Acute) Necrosis of finger (Acute) Numbness and tingling in right hand (Acute) AKA stump complication (Acute) Cellulitis (Acute) ESRD needing dialysis (Acute) Infection of toe (Acute) Pleural effusion (Acute) Acute hypokalemia (Acute) Osteomyelitis (Acute) Somatization disorder (Acute) Trapped lung (Acute) Recurrent pleural effusion on right (Chronic) Exudative pleural effusion (Acute) Hyponatremia (Acute) Hyperkalemia (Acute) Type 2 diabetes mellitus (Acute) Dry gangrene (Acute) PVD (peripheral vascular disease) (Acute) Postop check (Acute) Acute on chronic systolic and diastolic heart failure, NYHA class 3 (Chronic) Past Medical History Medical History Above knee amputation of right lower extremity Left ventricular systolic dysfunction (LVSD) PVD (peripheral vascular disease) Postop check Acute pericardial effusion Right sided weakness Dehiscence of wound Peripheral arterial disease Dry gangrene Cellulitis of right foot HFrEF (heart failure with reduced ejection fraction) Chronic combined systolic and diastolic CHF (congestive heart failure) Chronic pericardial effusion Arthritis Asthma Restless leg syndrome Acute on chronic systolic and diastolic heart failure, NYHA class 3 Anemia Occlusive thrombus Pulmonary edema ROBERT (obstructive sleep apnea) Type 2 diabetes mellitus Hyperlipidemia Hypertension A-V fistula ESRD on dialysis Falling Family History Family History Father No problems noted. Mother No problems noted. Family history of problems with anesthesia: No Surgical History Surgical History Status post creation of pericardial window Hx of right BKA History of transmetatarsal amputation of foot Status post transmetatarsal amputation of right foot Postop check History of surgery H/O colonoscopy Recurrent pleural effusion Pleural effusion on right (07/13/23) History of Problems with Anesthesia: No Social History Social History Household Members: Family Household Members Other:: son Housing: House Are you a primary skin care specialist to a significant other at home: No Do you presently have visiting nurse or other home services: No Unable to assess alcohol history related to: Unknown Alcohol intake: former Comment: COUNTS CORRECT Patient Tobacco Use Status: Former Tobacco user Tobacco use type: Cigarette Second Hand Smoke Exposure: No Advance Directives Date on File: 10/04/23 service: No Current occupational status: disabled 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 Meds Allergies Allergy/AdvReac Type Severity Reaction Status Date / Time Iodinated Contrast Media Allergy Severe Facial Verified 08/22/24 11:22 (Contrast Dye) Swelling hydralazine AdvReac Severe vasculitis Verified 08/22/24 11:22 Active Medications: Current Medications Acetaminophen (Acetaminophen 325 Mg Tablet) 650 mg PO Q6H PRN PRN Reason: Pain, Mild 1-3,fever,headache Last Admin: 09/06/24 12:09 Dose: 650 mg Albuterol Sulfate (Albuterol Sulfate 90 Mcg 8 Gm Inhaler) 2 puff INHALE Q4H PRN PRN Reason: Wheezing Allopurinol (Allopurinol 100 Mg Tablet) 100 mg PO MOWEFR@1600 [facility] Last Admin: 09/06/24 17:00 Dose: 100 mg Amlodipine Besylate (Amlodipine Besylate 10 Mg Tablet) 10 mg PO DAILY [facility]; Protocol Last Admin: 09/09/24 11:43 Dose: 10 mg Aspirin (Aspirin Enteric Coated 81 Mg Tablet.) 81 mg PO MOWEFR@1600 [facility] Last Admin: 09/06/24 17:00 Dose: 81 mg Aspirin (Aspirin Enteric Coated 81 Mg Tablet.) 81 mg PO SUTUTHSA@0900 [facility] Last Admin: 09/08/24 08:17 Dose: 81 mg Atorvastatin Calcium (Atorvastatin Calcium 40 Mg Tablet) 40 mg PO MOWEFR@1600 [facility] Last Admin: 09/06/24 16:59 Dose: 40 mg Atorvastatin Calcium (Atorvastatin Calcium 40 Mg Tablet) 40 mg PO SUTUTHSA@0900 [facility] Last Admin: 09/08/24 08:18 Dose: 40 mg Calcium Carbonate (Calcium Carbonate 750 Mg Tab.Chew) 750 mg PO Q4H PRN PRN Reason: Heartburn Carvedilol (Carvedilol 12.5 Mg Tablet) 12.5 mg PO BID [facility]; Protocol Last Admin: 09/09/24 11:44 Dose: 12.5 mg Dextrose (Dextrose 50 % 25 Gm/50 Ml Syringe) 25 gm IVPUSH Q15M PRN; Protocol PRN Reason: per Hypoglycemia Standing Ord. Last Admin: 08/27/24 07:59 Dose: 25 gm Docusate Sodium (Docusate Sodium 100 Mg Capsule) 100 mg PO DAILY [facility] Last Admin: 09/09/24 11:46 Dose: 100 mg Doxazosin Mesylate (Doxazosin Mesylate 2 Mg Tablet) 4 mg PO BEDTIME [facility]; Protocol Last Admin: 09/08/24 19:51 Dose: 4 mg Fluticasone/Umeclidinium/Vilanterol (Fluticasone/Umeclidinium/Vilanterol 100/62.5/25 Blst.W.Dev) 1 puff INHALE RDAILY [facility] Last Admin: 09/09/24 08:05 Dose: Not Given Furosemide (Furosemide 40 Mg Tablet) 80 mg PO MOWEFR@1600 [facility]; Protocol Last Admin: 09/06/24 17:00 Dose: 80 mg Furosemide (Furosemide 40 Mg Tablet) 80 mg PO SUTUTHSA@0900 [facility]; Protocol Last Admin: 09/08/24 08:17 Dose: 80 mg Glucose (Glucose Gel 15 Gm Gel..Gram.) 15 gm PO Q15M PRN PRN Reason: per Hypoglycemia Standing Ord. Last Admin: 08/25/24 04:50 Dose: 15 gm Heparin Sodium (Porcine) (Heparin Sodium,Porcine 5,000 Unit/Ml Vial) 5,000 unit SUBCUT Q12H [facility] Last Admin: 09/09/24 11:45 Dose: Not Given Hydrocortisone (Hydrocortisone 1 % Ointment 28.35 Gm Tube) 1 appl TOPICAL BID PRN; Protocol PRN Reason: itching Vancomycin HCl 500 mg/ Sodium (Chloride) 110 mls @ 110 mls/hr IV ONCE ONE Stop: 08/23/24 20:59 Cefepime HCl 1 gm/ Sodium (Chloride) 50 mls @ 100 mls/hr IV Q24H [facility] Last Infusion: 09/08/24 18:05 Dose: Infused Insulin Glargine (Insulin Glargine,Hum.Rec.Anlog 100 Unit/Ml 10 Ml Vial) 10 unit SUBCUT BEDTIME [facility] Last Admin: 09/08/24 20:59 Dose: Not Given Insulin Human Lispro (Insulin Lispro 100 Unit/Ml 3 Ml Vial) 0 unit SUBCUT QIDACHS [facility]; Protocol Last Admin: 09/09/24 11:46 Dose: Not Given Levetiracetam (Levetiracetam 1,000 Mg Tablet) 1,000 mg PO BID [facility] Last Admin: 09/09/24 11:45 Dose: 1,000 mg Losartan Potassium (Losartan Potassium 50 Mg Tablet) 50 mg PO SUTUTHSA@0900 [facility]; Protocol Last Admin: 09/08/24 08:16 Dose: 50 mg Losartan Potassium (Losartan Potassium 50 Mg Tablet) 50 mg PO MOWEFR@1600 [facility]; Protocol Last Admin: 09/06/24 16:59 Dose: 50 mg Magnesium Hydroxide (Milk Of Magnesia 30 Ml Oral.Susp) 30 ml PO DAILY PRN PRN Reason: Constipation Last Admin: 09/06/24 17:00 Dose: 30 ml Melatonin (Melatonin 3 Mg Tablet) 6 mg PO BEDTIME PRN PRN Reason: Insomnia Last Admin: 09/04/24 19:29 Dose: 6 mg Omeprazole (Omeprazole 20 Mg Capsule.Dr) 20 mg PO DAILY@0630 [facility] Last Admin: 09/09/24 06:19 Dose: Not Given Ondansetron HCl (Ondansetron Hcl 4 Mg/2 Ml Vial) 4 mg IVPUSH Q8H PRN PRN Reason: Nausea and Vomiting Pharmacy Consult (Consult Rx Vancomycin Dosing) 1 each MISCELLANE DAILY PRN PRN Reason: Consult order Pregabalin (Pregabalin 75 Mg Capsule) 75 mg PO DAILY [facility] Last Admin: 09/09/24 11:45 Dose: 75 mg Sevelamer Carbonate (Sevelamer Carbonate Tablet 800 Mg Tablet) 800 mg PO TIDWM [facility] Last Admin: 09/09/24 11:51 Dose: Not Given Sodium Chloride (0.9 % Sodium Chloride Flush 3 Ml Syringe) 3 ml IVFLUSH QSHIFT [facility] Last Admin: 09/09/24 07:24 Dose: 3 ml Home Medications ?Medication ?Instructions ?Recorded ?Confirmed ?Last Taken ?Type allopurinol 100 mg tablet 100 mg PO MOWEFR@1600 04/19/22 08/22/24 08/21/24 History atorvastatin 40 mg tablet 40 mg PO SUTUTHSA@0900 04/19/22 08/22/24 08/21/24 History doxazosin 4 mg tablet 4 mg PO BEDTIME 04/19/22 08/22/24 08/21/24 History furosemide 80 mg tablet 80 mg PO SUTUTHSA@0900 04/19/22 08/22/24 08/21/24 History omeprazole 20 mg capsule,delayed 20 mg PO DAILY@0630 04/19/22 08/22/24 08/21/24 History release aspirin 81 mg tablet,delayed 81 mg PO SUTUTHSA@0900 06/20/23 08/22/24 08/21/24 History release pregabalin 75 mg capsule 75 mg PO DAILY 06/20/23 08/22/24 08/21/24 History aspirin 81 mg tablet,delayed 81 mg PO MOWEFR@1600 04/05/24 08/22/24 08/21/24 History release atorvastatin 40 mg tablet 40 mg PO MOWEFR@1600 04/05/24 08/22/24 08/21/24 History fluticasone fur. 100 mcg-umeclid 1 inh inhalation DAILY 04/05/24 08/22/24 08/21/24 History 62.5 mcg-vilant 25 mcg inhalat.powder (Trelegy Ellipta) furosemide 80 mg tablet 80 mg PO MOWEFR@1600 04/05/24 08/22/24 08/21/24 History losartan 25 mg tablet 25 mg PO MOWEFR@1600 04/05/24 08/22/24 08/21/24 History losartan 25 mg tablet 25 mg PO SUTUTHSA@0900 04/05/24 08/22/24 08/21/24 History insulin glargine 100 unit/mL (3 22 unit subcut BEDTIME 05/01/24 08/22/24 08/21/24 History mL) subcutaneous pen (Lantus Solostar U-100 Insulin) acetaminophen 500 mg tablet 1,000 mg PO Q8H PRN Pain 05/26/24 08/22/24 Unknown History amlodipine 10 mg tablet 10 mg PO DAILY 05/26/24 08/22/24 08/21/24 History calcium carbonate (Calcium 500) 500 mg PO TID 05/26/24 08/22/24 08/21/24 History docusate sodium 100 mg capsule 100 mg PO DAILY 05/26/24 08/22/24 08/21/24 History insulin lispro 100 unit/mL See Rx Instructions .Route .COMPLEX 05/26/24 08/22/24 08/21/24 History subcutaneous solution (Humalog U-100 Insulin) albuterol sulfate 90 mcg/actuation 2 puff inhalation Q4H PRN wheezing 08/22/24 08/22/24 Unknown History aerosol inhaler (Ventolin HFA) carvedilol 6.25 mg tablet 6.25 mg PO BID 08/22/24 08/22/24 Unknown History ipratropium 0.5 mg-albuterol 3 mg 3 ml inhalation QID PRN Shortness 08/22/24 08/22/24 08/21/24 History (2.5 mg base)/3 mL nebulization Of Breath soln sucroferric oxyhydroxide 500 mg 500 mg PO TID 08/22/24 08/22/24 08/21/24 History chewable tablet (Velphoro) Exam Height,Weight and Vital Signs: Height 5 ft 4 in Weight 72.2 kg Last Vital Signs Temp 97.9 F 09/09/24 13:42 Pulse 64 09/09/24 13:42 Resp 15 09/09/24 13:42 BP 132/71 09/09/24 13:42 Pulse Ox 99 09/09/24 13:42 O2 Del Method Room Air 09/09/24 13:42 O2 Flow Rate 2 09/04/24 03:34 Pertinent Lab Results Pertinent Lab Results: Laboratory Tests 08/22/24 08/22/24 08/22/24 11:41 14:20 16:08 WBC 16.3 H RBC 4.98 D Hgb 11.4 L Hct 37.1 L MCV 74.5 L MCH 22.9 L MCHC 30.7 L RDW 19.9 H Plt Count 194 MPV Not Reportable Immature Gran % (Auto) 0.4 Neut % (Auto) 86.4 H Lymph % (Auto) 7.2 L [place] % (Auto) 5.5 Eos % (Auto) 0.3 Baso % (Auto) 0.2 Lymph # (Auto) 1.2 [place] # (Auto) 0.9 Eos # (Auto) 0.1 Baso # (Auto) 0.0 Abs Immat Gran (auto) 0.07 H Absolute Neuts (auto) 14.1 H Absolute Nucleated RBC 0.030 H Nucleated RBC % (auto) 0.2 ESR Hold Purple Top VBG pH VBG pCO2 VBG pO2 VBG HCO3 VBG O2 Saturation VBG Base Excess Sodium 137 Potassium 5.0 Chloride 96 Carbon Dioxide 27 Anion Gap 19 BUN 54 H Creatinine 6.03 H* Estim Creat Clear Calc 10.8 Estimated GFR 9 POC Glucose 381 H* Random Glucose 392 H* Lactic Acid 1.6 Calcium 8.6 Phosphorus Magnesium 1.6 Total Bilirubin 0.5 Direct Bilirubin AST 23 ALT 24 Alkaline Phosphatase 159 H Ammonia C-Reactive Protein 16.41 H Total Protein 7.1 Albumin 3.5 Random Vancomycin 08/22/24 08/22/24 08/22/24 17:11 18:49 21:05 WBC RBC Hgb Hct MCV MCH MCHC RDW Plt Count MPV Immature Gran % (Auto) Neut % (Auto) Lymph % (Auto) [place] % (Auto) Eos % (Auto) Baso % (Auto) Lymph # (Auto) [place] # (Auto) Eos # (Auto) Baso # (Auto) Abs Immat Gran (auto) Absolute Neuts (auto) Absolute Nucleated RBC Nucleated RBC % (auto) ESR Hold Purple Top VBG pH VBG pCO2 VBG pO2 VBG HCO3 VBG O2 Saturation VBG Base Excess Sodium Potassium Chloride Carbon Dioxide Anion Gap BUN Creatinine Estim Creat Clear Calc Estimated GFR POC Glucose 405 H* 179 H 82 Random Glucose Lactic Acid Calcium Phosphorus Magnesium Total Bilirubin Direct Bilirubin AST ALT Alkaline Phosphatase Ammonia C-Reactive Protein Total Protein Albumin Random Vancomycin 08/23/24 08/23/24 08/23/24 02:46 06:33 06:55 WBC 15.8 H RBC 4.77 Hgb 11.0 L Hct 35.1 L MCV 73.6 L MCH 23.1 L MCHC 31.3 RDW 19.4 H Plt Count 183 MPV Not Reportable Immature Gran % (Auto) Neut % (Auto) Lymph % (Auto) [place] % (Auto) Eos % (Auto) Baso % (Auto) Lymph # (Auto) [place] # (Auto) Eos # (Auto) Baso # (Auto) Abs Immat Gran (auto) Absolute Neuts (auto) Absolute Nucleated RBC 0.020 H Nucleated RBC % (auto) 0.1 ESR Hold Purple Top VBG pH VBG pCO2 VBG pO2 VBG HCO3 VBG O2 Saturation VBG Base Excess Sodium Potassium Chloride Carbon Dioxide Anion Gap BUN Creatinine Estim Creat Clear Calc Estimated GFR POC Glucose 184 H 192 H Random Glucose Lactic Acid Calcium Phosphorus Magnesium Total Bilirubin Direct Bilirubin AST ALT Alkaline Phosphatase Ammonia C-Reactive Protein Total Protein Albumin Random Vancomycin 08/23/24 08/23/24 08/23/24 10:48 11:49 16:05 WBC RBC Hgb Hct MCV MCH MCHC RDW Plt Count MPV Immature Gran % (Auto) Neut % (Auto) Lymph % (Auto) [place] % (Auto) Eos % (Auto) Baso % (Auto) Lymph # (Auto) [place] # (Auto) Eos # (Auto) Baso # (Auto) Abs Immat Gran (auto) Absolute Neuts (auto) Absolute Nucleated RBC Nucleated RBC % (auto) ESR Hold Purple Top VBG pH VBG pCO2 VBG pO2 VBG HCO3 VBG O2 Saturation VBG Base Excess Sodium 136 Potassium 5.6 H Chloride 95 L Carbon Dioxide 25 Anion Gap 22 H BUN 70 H Creatinine 7.76 H* Estim Creat Clear Calc 8.2 Estimated GFR 7 POC Glucose 174 H 190 H Random Glucose 183 H Lactic Acid Calcium 8.6 Phosphorus 7.7 H Magnesium Total Bilirubin Direct Bilirubin AST ALT Alkaline Phosphatase Ammonia C-Reactive Protein Total Protein Albumin Random Vancomycin 08/23/24 08/24/24 08/24/24 20:34 06:33 10:09 WBC 15.9 H RBC 4.59 L Hgb 10.5 L Hct 33.8 L MCV 73.6 L MCH 22.9 L MCHC 31.1 RDW 19.4 H Plt Count 180 MPV Not Reportable Immature Gran % (Auto) 0.5 H Neut % (Auto) 85.0 H Lymph % (Auto) 5.2 L [place] % (Auto) 7.3 Eos % (Auto) 1.8 Baso % (Auto) 0.2 Lymph # (Auto) 0.8 L [place] # (Auto) 1.2 Eos # (Auto) 0.3 Baso # (Auto) 0.0 Abs Immat Gran (auto) 0.08 H Absolute Neuts (auto) 13.5 H Absolute Nucleated RBC 0.030 H Nucleated RBC % (auto) 0.2 ESR Hold Purple Top VBG pH VBG pCO2 VBG pO2 VBG HCO3 VBG O2 Saturation VBG Base Excess Sodium 138 Potassium 4.5 Chloride 97 Carbon Dioxide 27 Anion Gap 19 BUN 56 H Creatinine 6.06 H* Estim Creat Clear Calc 10.6 Estimated GFR 9 POC Glucose 200 H 50 L* Random Glucose 84 Lactic Acid Calcium 8.6 Phosphorus Magnesium Total Bilirubin Direct Bilirubin AST ALT Alkaline Phosphatase Ammonia C-Reactive Protein Total Protein Albumin Random Vancomycin 08/24/24 08/24/24 08/24/24 10:37 10:47 10:58 WBC RBC Hgb Hct MCV MCH MCHC RDW Plt Count MPV Immature Gran % (Auto) Neut % (Auto) Lymph % (Auto) [place] % (Auto) Eos % (Auto) Baso % (Auto) Lymph # (Auto) [place] # (Auto) Eos # (Auto) Baso # (Auto) Abs Immat Gran (auto) Absolute Neuts (auto) Absolute Nucleated RBC Nucleated RBC % (auto) ESR Hold Purple Top VBG pH VBG pCO2 VBG pO2 VBG HCO3 VBG O2 Saturation VBG Base Excess Sodium Potassium Chloride Carbon Dioxide Anion Gap BUN Creatinine Estim Creat Clear Calc Estimated GFR POC Glucose 88 101 Random Glucose Lactic Acid Calcium Phosphorus Magnesium Total Bilirubin Direct Bilirubin AST ALT Alkaline Phosphatase Ammonia C-Reactive Protein Total Protein Albumin Random Vancomycin 16.7 08/24/24 08/24/24 08/24/24 11:38 11:47 15:12 WBC RBC Hgb Hct MCV MCH MCHC RDW Plt Count MPV Immature Gran % (Auto) Neut % (Auto) Lymph % (Auto) [place] % (Auto) Eos % (Auto) Baso % (Auto) Lymph # (Auto) [place] # (Auto) Eos # (Auto) Baso # (Auto) Abs Immat Gran (auto) Absolute Neuts (auto) Absolute Nucleated RBC Nucleated RBC % (auto) ESR Hold Purple Top VBG pH 7.38 VBG pCO2 60 VBG pO2 58 VBG HCO3 36 H VBG O2 Saturation 83.0 VBG Base Excess 9.0 Sodium 140 Potassium 4.1 Chloride 97 Carbon Dioxide 30 H Anion Gap 17 BUN 35 H Creatinine 4.61 H* Estim Creat Clear Calc 13.9 Estimated GFR 13 POC Glucose 63 Random Glucose 101 Lactic Acid Calcium 9.0 Phosphorus Magnesium Total Bilirubin 0.5 Direct Bilirubin 0.3 AST 18 ALT 19 Alkaline Phosphatase 143 H Ammonia 32 C-Reactive Protein Total Protein 7.0 Albumin 3.4 L Random Vancomycin 08/24/24 08/24/24 08/24/24 15:31 15:54 20:26 WBC RBC Hgb Hct MCV MCH MCHC RDW Plt Count MPV Immature Gran % (Auto) Neut % (Auto) Lymph % (Auto) [place] % (Auto) Eos % (Auto) Baso % (Auto) Lymph # (Auto) [place] # (Auto) Eos # (Auto) Baso # (Auto) Abs Immat Gran (auto) Absolute Neuts (auto) Absolute Nucleated RBC Nucleated RBC % (auto) ESR Hold Purple Top VBG pH VBG pCO2 VBG pO2 VBG HCO3 VBG O2 Saturation VBG Base Excess Sodium Potassium Chloride Carbon Dioxide Anion Gap BUN Creatinine Estim Creat Clear Calc Estimated GFR POC Glucose 59 L* 85 100 Random Glucose Lactic Acid Calcium Phosphorus Magnesium Total Bilirubin Direct Bilirubin AST ALT Alkaline Phosphatase Ammonia C-Reactive Protein Total Protein Albumin Random Vancomycin 08/25/24 08/25/24 08/25/24 01:09 04:20 06:00 WBC RBC Hgb Hct MCV MCH MCHC RDW Plt Count MPV Immature Gran % (Auto) Neut % (Auto) Lymph % (Auto) [place] % (Auto) Eos % (Auto) Baso % (Auto) Lymph # (Auto) [place] # (Auto) Eos # (Auto) Baso # (Auto) Abs Immat Gran (auto) Absolute Neuts (auto) Absolute Nucleated RBC Nucleated RBC % (auto) ESR Hold Purple Top VBG pH VBG pCO2 VBG pO2 VBG HCO3 VBG O2 Saturation VBG Base Excess Sodium Potassium Chloride Carbon Dioxide Anion Gap BUN Creatinine Estim Creat Clear Calc Estimated GFR POC Glucose 69 58 L* 102 Random Glucose Lactic Acid Calcium Phosphorus Magnesium Total Bilirubin Direct Bilirubin AST ALT Alkaline Phosphatase Ammonia C-Reactive Protein Total Protein Albumin Random Vancomycin 08/25/24 08/25/24 08/25/24 07:11 07:15 07:40 WBC 13.7 H RBC 4.57 L Hgb 10.6 L Hct 34.0 L MCV 74.4 L MCH 23.2 L MCHC 31.2 RDW 19.3 H Plt Count 164 MPV TNP Immature Gran % (Auto) 0.8 H Neut % (Auto) 81.0 H Lymph % (Auto) 8.6 L [place] % (Auto) 8.4 Eos % (Auto) 1.1 Baso % (Auto) 0.1 Lymph # (Auto) 1.2 [place] # (Auto) 1.2 Eos # (Auto) 0.2 Baso # (Auto) 0.0 Abs Immat Gran (auto) 0.11 H Absolute Neuts (auto) 11.1 H Absolute Nucleated RBC 0.030 H Nucleated RBC % (auto) 0.2 ESR Hold Purple Top VBG pH 7.43 VBG pCO2 47 VBG pO2 64 VBG HCO3 31 H VBG O2 Saturation 88.0 VBG Base Excess 6.3 Sodium 134 L Potassium 5.3 H D Chloride 94 L Carbon Dioxide 27 Anion Gap 18 BUN 49 H Creatinine 5.96 H* Estim Creat Clear Calc 10.8 Estimated GFR 9 POC Glucose 95 Random Glucose 90 Lactic Acid Calcium 8.8 Phosphorus Magnesium Total Bilirubin Direct Bilirubin AST ALT Alkaline Phosphatase Ammonia C-Reactive Protein Total Protein Albumin Random Vancomycin 08/25/24 08/25/24 08/25/24 10:25 13:44 16:31 WBC RBC Hgb Hct MCV MCH MCHC RDW Plt Count MPV Immature Gran % (Auto) Neut % (Auto) Lymph % (Auto) [place] % (Auto) Eos % (Auto) Baso % (Auto) Lymph # (Auto) [place] # (Auto) Eos # (Auto) Baso # (Auto) Abs Immat Gran (auto) Absolute Neuts (auto) Absolute Nucleated RBC Nucleated RBC % (auto) ESR Hold Purple Top VBG pH VBG pCO2 VBG pO2 VBG HCO3 VBG O2 Saturation VBG Base Excess Sodium Potassium Chloride Carbon Dioxide Anion Gap BUN Creatinine Estim Creat Clear Calc Estimated GFR POC Glucose 180 H 168 H 165 H Random Glucose Lactic Acid Calcium Phosphorus Magnesium Total Bilirubin Direct Bilirubin AST ALT Alkaline Phosphatase Ammonia C-Reactive Protein Total Protein Albumin Random Vancomycin 08/25/24 08/26/24 08/26/24 19:56 01:18 04:41 WBC RBC Hgb Hct MCV MCH MCHC RDW Plt Count MPV Immature Gran % (Auto) Neut % (Auto) Lymph % (Auto) [place] % (Auto) Eos % (Auto) Baso % (Auto) Lymph # (Auto) [place] # (Auto) Eos # (Auto) Baso # (Auto) Abs Immat Gran (auto) Absolute Neuts (auto) Absolute Nucleated RBC Nucleated RBC % (auto) ESR Hold Purple Top VBG pH VBG pCO2 VBG pO2 VBG HCO3 VBG O2 Saturation VBG Base Excess Sodium Potassium Chloride Carbon Dioxide Anion Gap BUN Creatinine Estim Creat Clear Calc Estimated GFR POC Glucose 134 H 114 88 Random Glucose Lactic Acid Calcium Phosphorus Magnesium Total Bilirubin Direct Bilirubin AST ALT Alkaline Phosphatase Ammonia C-Reactive Protein Total Protein Albumin Random Vancomycin 08/26/24 08/26/24 08/26/24 07:00 08:49 10:06 WBC 16.4 H RBC 4.62 Hgb 10.7 L Hct 33.6 L MCV 72.7 L MCH 23.2 L MCHC 31.8 RDW 18.8 H Plt Count 178 MPV Not Reportable Immature Gran % (Auto) 0.7 H Neut % (Auto) 82.8 H Lymph % (Auto) 6.7 L [place] % (Auto) 8.6 Eos % (Auto) 1.0 Baso % (Auto) 0.2 Lymph # (Auto) 1.1 L [place] # (Auto) 1.4 H Eos # (Auto) 0.2 Baso # (Auto) 0.0 Abs Immat Gran (auto) 0.12 H Absolute Neuts (auto) 13.5 H Absolute Nucleated RBC 0.000 Nucleated RBC % (auto) 0.0 ESR Hold Purple Top VBG pH VBG pCO2 VBG pO2 VBG HCO3 VBG O2 Saturation VBG Base Excess Sodium 132 L Potassium 6.1 H* Chloride 91 L Carbon Dioxide 24 Anion Gap 23 H BUN 64 H Creatinine 7.92 H* Estim Creat Clear Calc 8.1 Estimated GFR 7 POC Glucose 80 97 Random Glucose 66 Lactic Acid Calcium 8.9 Phosphorus 8.9 H Magnesium Total Bilirubin Direct Bilirubin AST ALT Alkaline Phosphatase Ammonia C-Reactive Protein Total Protein Albumin Random Vancomycin 08/26/24 08/26/24 08/26/24 15:25 16:57 19:16 WBC RBC Hgb Hct MCV MCH MCHC RDW Plt Count MPV Immature Gran % (Auto) Neut % (Auto) Lymph % (Auto) [place] % (Auto) Eos % (Auto) Baso % (Auto) Lymph # (Auto) [place] # (Auto) Eos # (Auto) Baso # (Auto) Abs Immat Gran (auto) Absolute Neuts (auto) Absolute Nucleated RBC Nucleated RBC % (auto) ESR Hold Purple Top VBG pH VBG pCO2 VBG pO2 VBG HCO3 VBG O2 Saturation VBG Base Excess Sodium Potassium Chloride Carbon Dioxide Anion Gap BUN Creatinine Estim Creat Clear Calc Estimated GFR POC Glucose 127 H 131 H Random Glucose Lactic Acid Calcium Phosphorus Magnesium Total Bilirubin Direct Bilirubin AST ALT Alkaline Phosphatase Ammonia C-Reactive Protein Total Protein Albumin Random Vancomycin 12.3 L 08/26/24 08/26/24 08/27/24 20:07 22:56 01:20 WBC RBC Hgb Hct MCV MCH MCHC RDW Plt Count MPV Immature Gran % (Auto) Neut % (Auto) Lymph % (Auto) [place] % (Auto) Eos % (Auto) Baso % (Auto) Lymph # (Auto) [place] # (Auto) Eos # (Auto) Baso # (Auto) Abs Immat Gran (auto) Absolute Neuts (auto) Absolute Nucleated RBC Nucleated RBC % (auto) ESR Hold Purple Top VBG pH 7.41 VBG pCO2 51 VBG pO2 73 VBG HCO3 33 H VBG O2 Saturation 92.0 VBG Base Excess 7.1 Sodium Potassium Chloride Carbon Dioxide Anion Gap BUN Creatinine Estim Creat Clear Calc Estimated GFR POC Glucose 121 H 95 Random Glucose Lactic Acid Calcium Phosphorus Magnesium Total Bilirubin Direct Bilirubin AST ALT Alkaline Phosphatase Ammonia C-Reactive Protein Total Protein Albumin Random Vancomycin 08/27/24 08/27/24 08/27/24 03:11 06:07 07:02 WBC 14.6 H RBC 4.55 L Hgb 10.4 L Hct 33.1 L MCV 72.7 L MCH 22.9 L MCHC 31.4 RDW 18.8 H Plt Count 189 MPV Not Reportable Immature Gran % (Auto) Neut % (Auto) Lymph % (Auto) [place] % (Auto) Eos % (Auto) Baso % (Auto) Lymph # (Auto) [place] # (Auto) Eos # (Auto) Baso # (Auto) Abs Immat Gran (auto) Absolute Neuts (auto) Absolute Nucleated RBC 0.000 Nucleated RBC % (auto) 0.0 ESR Hold Purple Top VBG pH VBG pCO2 VBG pO2 VBG HCO3 VBG O2 Saturation VBG Base Excess Sodium 136 Potassium 4.5 D Chloride 96 Carbon Dioxide 25 Anion Gap 20 BUN 37 H Creatinine 5.19 H* Estim Creat Clear Calc 12.4 Estimated GFR 11 POC Glucose 90 75 Random Glucose 76 Lactic Acid Calcium 9.2 Phosphorus Magnesium Total Bilirubin Direct Bilirubin AST ALT Alkaline Phosphatase Ammonia C-Reactive Protein Total Protein Albumin Random Vancomycin 08/27/24 08/27/24 08/27/24 08:36 12:31 16:15 WBC RBC Hgb Hct MCV MCH MCHC RDW Plt Count MPV Immature Gran % (Auto) Neut % (Auto) Lymph % (Auto) [place] % (Auto) Eos % (Auto) Baso % (Auto) Lymph # (Auto) [place] # (Auto) Eos # (Auto) Baso # (Auto) Abs Immat Gran (auto) Absolute Neuts (auto) Absolute Nucleated RBC Nucleated RBC % (auto) ESR Hold Purple Top VBG pH VBG pCO2 VBG pO2 VBG HCO3 VBG O2 Saturation VBG Base Excess Sodium Potassium Chloride Carbon Dioxide Anion Gap BUN Creatinine Estim Creat Clear Calc Estimated GFR POC Glucose 166 H 101 118 H Random Glucose Lactic Acid Calcium Phosphorus Magnesium Total Bilirubin Direct Bilirubin AST ALT Alkaline Phosphatase Ammonia C-Reactive Protein Total Protein Albumin Random Vancomycin 08/27/24 08/27/24 08/28/24 19:41 20:57 01:19 WBC RBC Hgb Hct MCV MCH MCHC RDW Plt Count MPV Immature Gran % (Auto) Neut % (Auto) Lymph % (Auto) [place] % (Auto) Eos % (Auto) Baso % (Auto) Lymph # (Auto) [place] # (Auto) Eos # (Auto) Baso # (Auto) Abs Immat Gran (auto) Absolute Neuts (auto) Absolute Nucleated RBC Nucleated RBC % (auto) ESR Hold Purple Top VBG pH VBG pCO2 VBG pO2 VBG HCO3 VBG O2 Saturation VBG Base Excess Sodium Potassium Chloride Carbon Dioxide Anion Gap BUN Creatinine Estim Creat Clear Calc Estimated GFR POC Glucose 224 H 222 H 278 H Random Glucose Lactic Acid Calcium Phosphorus Magnesium Total Bilirubin Direct Bilirubin AST ALT Alkaline Phosphatase Ammonia C-Reactive Protein Total Protein Albumin Random Vancomycin 08/28/24 08/28/24 08/28/24 01:39 04:28 07:05 WBC 15.0 H RBC 4.59 L Hgb 10.5 L Hct 33.8 L MCV 73.6 L MCH 22.9 L MCHC 31.1 RDW 18.8 H Plt Count 218 MPV Not Reportable Immature Gran % (Auto) Neut % (Auto) Lymph % (Auto) [place] % (Auto) Eos % (Auto) Baso % (Auto) Lymph # (Auto) [place] # (Auto) Eos # (Auto) Baso # (Auto) Abs Immat Gran (auto) Absolute Neuts (auto) Absolute Nucleated RBC 0.000 Nucleated RBC % (auto) 0.0 ESR Hold Purple Top VBG pH VBG pCO2 VBG pO2 VBG HCO3 VBG O2 Saturation VBG Base Excess Sodium 137 Potassium 5.0 Chloride 97 Carbon Dioxide 23 Anion Gap 22 H BUN 56 H Creatinine 7.02 H* Estim Creat Clear Calc 9.1 Estimated GFR 8 POC Glucose 267 H 209 H Random Glucose 243 H Lactic Acid Calcium 8.9 Phosphorus 10.4 H Magnesium Total Bilirubin Direct Bilirubin AST ALT Alkaline Phosphatase Ammonia C-Reactive Protein Total Protein Albumin Random Vancomycin 08/28/24 08/28/24 08/28/24 07:29 11:23 16:15 WBC RBC Hgb Hct MCV MCH MCHC RDW Plt Count MPV Immature Gran % (Auto) Neut % (Auto) Lymph % (Auto) [place] % (Auto) Eos % (Auto) Baso % (Auto) Lymph # (Auto) [place] # (Auto) Eos # (Auto) Baso # (Auto) Abs Immat Gran (auto) Absolute Neuts (auto) Absolute Nucleated RBC Nucleated RBC % (auto) ESR Hold Purple Top VBG pH VBG pCO2 VBG pO2 VBG HCO3 VBG O2 Saturation VBG Base Excess Sodium Potassium Chloride Carbon Dioxide Anion Gap BUN Creatinine Estim Creat Clear Calc Estimated GFR POC Glucose 230 H 224 H 170 H Random Glucose Lactic Acid Calcium Phosphorus Magnesium Total Bilirubin Direct Bilirubin AST ALT Alkaline Phosphatase Ammonia C-Reactive Protein Total Protein Albumin Random Vancomycin 08/28/24 08/28/24 08/28/24 18:16 20:08 23:34 WBC RBC Hgb Hct MCV MCH MCHC RDW Plt Count MPV Immature Gran % (Auto) Neut % (Auto) Lymph % (Auto) [place] % (Auto) Eos % (Auto) Baso % (Auto) Lymph # (Auto) [place] # (Auto) Eos # (Auto) Baso # (Auto) Abs Immat Gran (auto) Absolute Neuts (auto) Absolute Nucleated RBC Nucleated RBC % (auto) ESR Hold Purple Top VBG pH VBG pCO2 VBG pO2 VBG HCO3 VBG O2 Saturation VBG Base Excess Sodium Potassium Chloride Carbon Dioxide Anion Gap BUN Creatinine Estim Creat Clear Calc Estimated GFR POC Glucose 268 H 181 H Random Glucose Lactic Acid Calcium Phosphorus Magnesium Total Bilirubin Direct Bilirubin AST ALT Alkaline Phosphatase Ammonia C-Reactive Protein Total Protein Albumin Random Vancomycin 12.7 L 08/29/24 08/29/24 08/29/24 03:37 06:17 07:22 WBC 13.7 H RBC 4.64 Hgb 10.4 L Hct 34.3 L MCV 73.9 L MCH 22.4 L MCHC 30.3 L RDW 18.8 H Plt Count 241 MPV Not Reportable Immature Gran % (Auto) Neut % (Auto) Lymph % (Auto) [place] % (Auto) Eos % (Auto) Baso % (Auto) Lymph # (Auto) [place] # (Auto) Eos # (Auto) Baso # (Auto) Abs Immat Gran (auto) Absolute Neuts (auto) Absolute Nucleated RBC 0.000 Nucleated RBC % (auto) 0.0 ESR Hold Purple Top VBG pH VBG pCO2 VBG pO2 VBG HCO3 VBG O2 Saturation VBG Base Excess Sodium 138 Potassium 4.3 Chloride 99 Carbon Dioxide 24 Anion Gap 19 BUN 35 H Creatinine 4.94 H* Estim Creat Clear Calc 13.0 Estimated GFR 12 POC Glucose 186 H 137 H Random Glucose 152 H Lactic Acid Calcium 8.8 Phosphorus Magnesium Total Bilirubin Direct Bilirubin AST ALT Alkaline Phosphatase Ammonia C-Reactive Protein Total Protein Albumin Random Vancomycin 08/29/24 08/29/24 08/29/24 11:56 15:31 19:46 WBC RBC Hgb Hct MCV MCH MCHC RDW Plt Count MPV Immature Gran % (Auto) Neut % (Auto) Lymph % (Auto) [place] % (Auto) Eos % (Auto) Baso % (Auto) Lymph # (Auto) [place] # (Auto) Eos # (Auto) Baso # (Auto) Abs Immat Gran (auto) Absolute Neuts (auto) Absolute Nucleated RBC Nucleated RBC % (auto) ESR Hold Purple Top VBG pH VBG pCO2 VBG pO2 VBG HCO3 VBG O2 Saturation VBG Base Excess Sodium Potassium Chloride Carbon Dioxide Anion Gap BUN Creatinine Estim Creat Clear Calc Estimated GFR POC Glucose 236 H 161 H 204 H Random Glucose Lactic Acid Calcium Phosphorus Magnesium Total Bilirubin Direct Bilirubin AST ALT Alkaline Phosphatase Ammonia C-Reactive Protein Total Protein Albumin Random Vancomycin 08/30/24 08/30/24 08/30/24 03:14 06:26 08:10 WBC 14.5 H RBC 4.84 Hgb 11.1 L Hct 35.5 L MCV 73.3 L MCH 22.9 L MCHC 31.3 RDW 18.4 H Plt Count 261 MPV Not Reportable Immature Gran % (Auto) Neut % (Auto) Lymph % (Auto) [place] % (Auto) Eos % (Auto) Baso % (Auto) Lymph # (Auto) [place] # (Auto) Eos # (Auto) Baso # (Auto) Abs Immat Gran (auto) Absolute Neuts (auto) Absolute Nucleated RBC 0.000 Nucleated RBC % (auto) 0.0 ESR Hold Purple Top VBG pH VBG pCO2 VBG pO2 VBG HCO3 VBG O2 Saturation VBG Base Excess Sodium 135 Potassium 4.4 Chloride 97 Carbon Dioxide 24 Anion Gap 18 BUN 51 H Creatinine 6.37 H* Estim Creat Clear Calc 10.1 Estimated GFR 9 POC Glucose 167 H 127 H Random Glucose 145 H Lactic Acid Calcium 8.6 Phosphorus Magnesium Total Bilirubin Direct Bilirubin AST ALT Alkaline Phosphatase Ammonia C-Reactive Protein Total Protein Albumin Random Vancomycin 08/30/24 08/30/24 08/30/24 14:50 18:18 20:39 WBC RBC Hgb Hct MCV MCH MCHC RDW Plt Count MPV Immature Gran % (Auto) Neut % (Auto) Lymph % (Auto) [place] % (Auto) Eos % (Auto) Baso % (Auto) Lymph # (Auto) [place] # (Auto) Eos # (Auto) Baso # (Auto) Abs Immat Gran (auto) Absolute Neuts (auto) Absolute Nucleated RBC Nucleated RBC % (auto) ESR Hold Purple Top VBG pH VBG pCO2 VBG pO2 VBG HCO3 VBG O2 Saturation VBG Base Excess Sodium Potassium Chloride Carbon Dioxide Anion Gap BUN Creatinine Estim Creat Clear Calc Estimated GFR POC Glucose 126 H 415 H* Random Glucose Lactic Acid Calcium Phosphorus Magnesium Total Bilirubin Direct Bilirubin AST ALT Alkaline Phosphatase Ammonia C-Reactive Protein Total Protein Albumin Random Vancomycin 16.6 08/31/24 08/31/24 08/31/24 00:03 03:41 06:39 WBC 18.1 H RBC 4.77 Hgb 10.9 L Hct 34.8 L MCV 73.0 L MCH 22.9 L MCHC 31.3 RDW 18.5 H Plt Count 296 MPV 10.8 Immature Gran % (Auto) Neut % (Auto) Lymph % (Auto) [place] % (Auto) Eos % (Auto) Baso % (Auto) Lymph # (Auto) [place] # (Auto) Eos # (Auto) Baso # (Auto) Abs Immat Gran (auto) Absolute Neuts (auto) Absolute Nucleated RBC 0.000 Nucleated RBC % (auto) 0.0 ESR Hold Purple Top VBG pH VBG pCO2 VBG pO2 VBG HCO3 VBG O2 Saturation VBG Base Excess Sodium 140 Potassium 4.9 Chloride 102 Carbon Dioxide 23 Anion Gap 20 BUN 54 H Creatinine 5.94 H* Estim Creat Clear Calc 10.8 Estimated GFR 10 POC Glucose 276 H 281 H Random Glucose 334 H Lactic Acid Calcium 8.6 Phosphorus Magnesium Total Bilirubin Direct Bilirubin AST ALT Alkaline Phosphatase Ammonia C-Reactive Protein Total Protein Albumin Random Vancomycin 08/31/24 08/31/24 08/31/24 07:26 11:20 15:32 WBC RBC Hgb Hct MCV MCH MCHC RDW Plt Count MPV Immature Gran % (Auto) Neut % (Auto) Lymph % (Auto) [place] % (Auto) Eos % (Auto) Baso % (Auto) Lymph # (Auto) [place] # (Auto) Eos # (Auto) Baso # (Auto) Abs Immat Gran (auto) Absolute Neuts (auto) Absolute Nucleated RBC Nucleated RBC % (auto) ESR Hold Purple Top VBG pH VBG pCO2 VBG pO2 VBG HCO3 VBG O2 Saturation VBG Base Excess Sodium Potassium Chloride Carbon Dioxide Anion Gap BUN Creatinine Estim Creat Clear Calc Estimated GFR POC Glucose 296 H 169 H 197 H Random Glucose Lactic Acid Calcium Phosphorus Magnesium Total Bilirubin Direct Bilirubin AST ALT Alkaline Phosphatase Ammonia C-Reactive Protein Total Protein Albumin Random Vancomycin 08/31/24 09/01/24 09/01/24 21:11 06:23 07:37 WBC 15.9 H RBC 4.66 Hgb 10.7 L Hct 33.8 L MCV 72.5 L MCH 23.0 L MCHC 31.7 RDW 18.2 H Plt Count 314 MPV 10.5 Immature Gran % (Auto) Neut % (Auto) Lymph % (Auto) [place] % (Auto) Eos % (Auto) Baso % (Auto) Lymph # (Auto) [place] # (Auto) Eos # (Auto) Baso # (Auto) Abs Immat Gran (auto) Absolute Neuts (auto) Absolute Nucleated RBC 0.000 Nucleated RBC % (auto) 0.0 ESR Hold Purple Top VBG pH VBG pCO2 VBG pO2 VBG HCO3 VBG O2 Saturation VBG Base Excess Sodium 137 Potassium 4.7 Chloride 101 Carbon Dioxide 20 L Anion Gap 21 H BUN 74 H Creatinine 7.21 H* Estim Creat Clear Calc 8.9 Estimated GFR 8 POC Glucose 228 H 102 Random Glucose 119 H Lactic Acid Calcium 8.8 Phosphorus Magnesium Total Bilirubin Direct Bilirubin AST ALT Alkaline Phosphatase Ammonia C-Reactive Protein Total Protein Albumin Random Vancomycin 09/01/24 09/01/24 09/01/24 10:51 15:39 20:01 WBC RBC Hgb Hct MCV MCH MCHC RDW Plt Count MPV Immature Gran % (Auto) Neut % (Auto) Lymph % (Auto) [place] % (Auto) Eos % (Auto) Baso % (Auto) Lymph # (Auto) [place] # (Auto) Eos # (Auto) Baso # (Auto) Abs Immat Gran (auto) Absolute Neuts (auto) Absolute Nucleated RBC Nucleated RBC % (auto) ESR Hold Purple Top VBG pH VBG pCO2 VBG pO2 VBG HCO3 VBG O2 Saturation VBG Base Excess Sodium Potassium Chloride Carbon Dioxide Anion Gap BUN Creatinine Estim Creat Clear Calc Estimated GFR POC Glucose 157 H 285 H 239 H Random Glucose Lactic Acid Calcium Phosphorus Magnesium Total Bilirubin Direct Bilirubin AST ALT Alkaline Phosphatase Ammonia C-Reactive Protein Total Protein Albumin Random Vancomycin 09/02/24 09/02/24 09/02/24 05:46 07:11 10:59 WBC 16.4 H RBC 4.62 Hgb 10.7 L Hct 34.0 L MCV 73.6 L MCH 23.2 L MCHC 31.5 RDW 18.2 H Plt Count 396 D MPV 11.5 Immature Gran % (Auto) Neut % (Auto) Lymph % (Auto) [place] % (Auto) Eos % (Auto) Baso % (Auto) Lymph # (Auto) [place] # (Auto) Eos # (Auto) Baso # (Auto) Abs Immat Gran (auto) Absolute Neuts (auto) Absolute Nucleated RBC 0.000 Nucleated RBC % (auto) 0.0 ESR 36 H Hold Purple Top VBG pH VBG pCO2 VBG pO2 VBG HCO3 VBG O2 Saturation VBG Base Excess Sodium 135 Potassium 5.4 H Chloride 98 Carbon Dioxide 23 Anion Gap 19 BUN 93 H Creatinine 8.51 H* Estim Creat Clear Calc 7.5 Estimated GFR 6 POC Glucose 92 171 H Random Glucose 95 Lactic Acid Calcium 8.7 Phosphorus Magnesium Total Bilirubin Direct Bilirubin AST ALT Alkaline Phosphatase Ammonia C-Reactive Protein 8.23 H Total Protein Albumin Random Vancomycin 09/02/24 09/02/24 09/02/24 16:15 18:12 20:31 WBC RBC Hgb Hct MCV MCH MCHC RDW Plt Count MPV Immature Gran % (Auto) Neut % (Auto) Lymph % (Auto) [place] % (Auto) Eos % (Auto) Baso % (Auto) Lymph # (Auto) [place] # (Auto) Eos # (Auto) Baso # (Auto) Abs Immat Gran (auto) Absolute Neuts (auto) Absolute Nucleated RBC Nucleated RBC % (auto) ESR Hold Purple Top VBG pH VBG pCO2 VBG pO2 VBG HCO3 VBG O2 Saturation VBG Base Excess Sodium Potassium Chloride Carbon Dioxide Anion Gap BUN Creatinine Estim Creat Clear Calc Estimated GFR POC Glucose 160 H 229 H Random Glucose Lactic Acid Calcium Phosphorus Magnesium Total Bilirubin Direct Bilirubin AST ALT Alkaline Phosphatase Ammonia C-Reactive Protein Total Protein Albumin Random Vancomycin 11.7 L 09/03/24 09/03/24 09/03/24 05:35 07:33 11:13 WBC RBC Hgb Hct MCV MCH MCHC RDW Plt Count MPV Immature Gran % (Auto) Neut % (Auto) Lymph % (Auto) [place] % (Auto) Eos % (Auto) Baso % (Auto) Lymph # (Auto) [place] # (Auto) Eos # (Auto) Baso # (Auto) Abs Immat Gran (auto) Absolute Neuts (auto) Absolute Nucleated RBC Nucleated RBC % (auto) ESR Hold Purple Top SEE NOTE VBG pH VBG pCO2 VBG pO2 VBG HCO3 VBG O2 Saturation VBG Base Excess Sodium 137 Potassium 4.7 Chloride 100 Carbon Dioxide 24 Anion Gap 18 BUN 59 H Creatinine 6.15 H* Estim Creat Clear Calc 10.4 Estimated GFR 9 POC Glucose 150 H 211 H Random Glucose 175 H Lactic Acid Calcium 8.4 Phosphorus Magnesium Total Bilirubin Direct Bilirubin AST ALT Alkaline Phosphatase Ammonia C-Reactive Protein Total Protein Albumin Random Vancomycin 09/03/24 09/03/24 09/04/24 16:13 19:19 05:40 WBC RBC Hgb Hct MCV MCH MCHC RDW Plt Count MPV Immature Gran % (Auto) Neut % (Auto) Lymph % (Auto) [place] % (Auto) Eos % (Auto) Baso % (Auto) Lymph # (Auto) [place] # (Auto) Eos # (Auto) Baso # (Auto) Abs Immat Gran (auto) Absolute Neuts (auto) Absolute Nucleated RBC Nucleated RBC % (auto) ESR Hold Purple Top VBG pH VBG pCO2 VBG pO2 VBG HCO3 VBG O2 Saturation VBG Base Excess Sodium 135 Potassium 6.0 H* D Chloride 99 Carbon Dioxide 23 Anion Gap 19 BUN 77 H Creatinine 7.79 H* Estim Creat Clear Calc 8.2 Estimated GFR 7 POC Glucose 191 H 183 H Random Glucose 187 H Lactic Acid Calcium 9.0 D Phosphorus 4.9 H Magnesium Total Bilirubin Direct Bilirubin AST ALT Alkaline Phosphatase Ammonia C-Reactive Protein Total Protein Albumin Random Vancomycin 09/04/24 09/04/24 09/04/24 07:30 11:04 16:11 WBC RBC Hgb Hct MCV MCH MCHC RDW Plt Count MPV Immature Gran % (Auto) Neut % (Auto) Lymph % (Auto) [place] % (Auto) Eos % (Auto) Baso % (Auto) Lymph # (Auto) [place] # (Auto) Eos # (Auto) Baso # (Auto) Abs Immat Gran (auto) Absolute Neuts (auto) Absolute Nucleated RBC Nucleated RBC % (auto) ESR Hold Purple Top VBG pH VBG pCO2 VBG pO2 VBG HCO3 VBG O2 Saturation VBG Base Excess Sodium Potassium Chloride Carbon Dioxide Anion Gap BUN Creatinine Estim Creat Clear Calc Estimated GFR POC Glucose 146 H 170 H 310 H Random Glucose Lactic Acid Calcium Phosphorus Magnesium Total Bilirubin Direct Bilirubin AST ALT Alkaline Phosphatase Ammonia C-Reactive Protein Total Protein Albumin Random Vancomycin 09/04/24 09/04/24 09/05/24 18:04 19:12 07:25 WBC RBC Hgb Hct MCV MCH MCHC RDW Plt Count MPV Immature Gran % (Auto) Neut % (Auto) Lymph % (Auto) [place] % (Auto) Eos % (Auto) Baso % (Auto) Lymph # (Auto) [place] # (Auto) Eos # (Auto) Baso # (Auto) Abs Immat Gran (auto) Absolute Neuts (auto) Absolute Nucleated RBC Nucleated RBC % (auto) ESR Hold Purple Top VBG pH VBG pCO2 VBG pO2 VBG HCO3 VBG O2 Saturation VBG Base Excess Sodium Potassium Chloride Carbon Dioxide Anion Gap BUN Creatinine Estim Creat Clear Calc Estimated GFR POC Glucose 275 H 166 H Random Glucose Lactic Acid Calcium Phosphorus Magnesium Total Bilirubin Direct Bilirubin AST ALT Alkaline Phosphatase Ammonia C-Reactive Protein Total Protein Albumin Random Vancomycin 12.1 L 09/05/24 09/05/24 09/05/24 11:39 15:23 19:49 WBC RBC Hgb Hct MCV MCH MCHC RDW Plt Count MPV Immature Gran % (Auto) Neut % (Auto) Lymph % (Auto) [place] % (Auto) Eos % (Auto) Baso % (Auto) Lymph # (Auto) [place] # (Auto) Eos # (Auto) Baso # (Auto) Abs Immat Gran (auto) Absolute Neuts (auto) Absolute Nucleated RBC Nucleated RBC % (auto) ESR Hold Purple Top VBG pH VBG pCO2 VBG pO2 VBG HCO3 VBG O2 Saturation VBG Base Excess Sodium Potassium Chloride Carbon Dioxide Anion Gap BUN Creatinine Estim Creat Clear Calc Estimated GFR POC Glucose 171 H 206 H 152 H Random Glucose Lactic Acid Calcium Phosphorus Magnesium Total Bilirubin Direct Bilirubin AST ALT Alkaline Phosphatase Ammonia C-Reactive Protein Total Protein Albumin Random Vancomycin 09/06/24 09/06/24 09/06/24 07:18 11:11 16:11 WBC RBC Hgb Hct MCV MCH MCHC RDW Plt Count MPV Immature Gran % (Auto) Neut % (Auto) Lymph % (Auto) [place] % (Auto) Eos % (Auto) Baso % (Auto) Lymph # (Auto) [place] # (Auto) Eos # (Auto) Baso # (Auto) Abs Immat Gran (auto) Absolute Neuts (auto) Absolute Nucleated RBC Nucleated RBC % (auto) ESR Hold Purple Top VBG pH VBG pCO2 VBG pO2 VBG HCO3 VBG O2 Saturation VBG Base Excess Sodium Potassium Chloride Carbon Dioxide Anion Gap BUN Creatinine Estim Creat Clear Calc Estimated GFR POC Glucose 146 H 133 H 187 H Random Glucose Lactic Acid Calcium Phosphorus Magnesium Total Bilirubin Direct Bilirubin AST ALT Alkaline Phosphatase Ammonia C-Reactive Protein Total Protein Albumin Random Vancomycin 09/06/24 09/06/24 09/07/24 18:01 20:02 07:12 WBC RBC Hgb Hct MCV MCH MCHC RDW Plt Count MPV Immature Gran % (Auto) Neut % (Auto) Lymph % (Auto) [place] % (Auto) Eos % (Auto) Baso % (Auto) Lymph # (Auto) [place] # (Auto) Eos # (Auto) Baso # (Auto) Abs Immat Gran (auto) Absolute Neuts (auto) Absolute Nucleated RBC Nucleated RBC % (auto) ESR Hold Purple Top VBG pH VBG pCO2 VBG pO2 VBG HCO3 VBG O2 Saturation VBG Base Excess Sodium Potassium Chloride Carbon Dioxide Anion Gap BUN Creatinine Estim Creat Clear Calc Estimated GFR POC Glucose 91 75 Random Glucose Lactic Acid Calcium Phosphorus Magnesium Total Bilirubin Direct Bilirubin AST ALT Alkaline Phosphatase Ammonia C-Reactive Protein Total Protein Albumin Random Vancomycin 15.8 09/07/24 09/07/24 09/07/24 11:18 16:31 20:08 WBC RBC Hgb Hct MCV MCH MCHC RDW Plt Count MPV Immature Gran % (Auto) Neut % (Auto) Lymph % (Auto) [place] % (Auto) Eos % (Auto) Baso % (Auto) Lymph # (Auto) [place] # (Auto) Eos # (Auto) Baso # (Auto) Abs Immat Gran (auto) Absolute Neuts (auto) Absolute Nucleated RBC Nucleated RBC % (auto) ESR Hold Purple Top VBG pH VBG pCO2 VBG pO2 VBG HCO3 VBG O2 Saturation VBG Base Excess Sodium Potassium Chloride Carbon Dioxide Anion Gap BUN Creatinine Estim Creat Clear Calc Estimated GFR POC Glucose 194 H 138 H 159 H Random Glucose Lactic Acid Calcium Phosphorus Magnesium Total Bilirubin Direct Bilirubin AST ALT Alkaline Phosphatase Ammonia C-Reactive Protein Total Protein Albumin Random Vancomycin 09/08/24 09/08/24 09/08/24 07:33 11:28 16:04 WBC RBC Hgb Hct MCV MCH MCHC RDW Plt Count MPV Immature Gran % (Auto) Neut % (Auto) Lymph % (Auto) [place] % (Auto) Eos % (Auto) Baso % (Auto) Lymph # (Auto) [place] # (Auto) Eos # (Auto) Baso # (Auto) Abs Immat Gran (auto) Absolute Neuts (auto) Absolute Nucleated RBC Nucleated RBC % (auto) ESR Hold Purple Top VBG pH VBG pCO2 VBG pO2 VBG HCO3 VBG O2 Saturation VBG Base Excess Sodium Potassium Chloride Carbon Dioxide Anion Gap BUN Creatinine Estim Creat Clear Calc Estimated GFR POC Glucose 111 147 H 154 H Random Glucose Lactic Acid Calcium Phosphorus Magnesium Total Bilirubin Direct Bilirubin AST ALT Alkaline Phosphatase Ammonia C-Reactive Protein Total Protein Albumin Random Vancomycin 09/08/24 09/09/24 09/09/24 20:32 07:13 11:42 WBC RBC Hgb Hct MCV MCH MCHC RDW Plt Count MPV Immature Gran % (Auto) Neut % (Auto) Lymph % (Auto) [place] % (Auto) Eos % (Auto) Baso % (Auto) Lymph # (Auto) [place] # (Auto) Eos # (Auto) Baso # (Auto) Abs Immat Gran (auto) Absolute Neuts (auto) Absolute Nucleated RBC Nucleated RBC % (auto) ESR Hold Purple Top VBG pH VBG pCO2 VBG pO2 VBG HCO3 VBG O2 Saturation VBG Base Excess Sodium Potassium Chloride Carbon Dioxide Anion Gap BUN Creatinine Estim Creat Clear Calc Estimated GFR POC Glucose 122 H 144 H 138 H Random Glucose Lactic Acid Calcium Phosphorus Magnesium Total Bilirubin Direct Bilirubin AST ALT Alkaline Phosphatase Ammonia C-Reactive Protein Total Protein Albumin Random Vancomycin 09/09/24 13:54 WBC RBC Hgb Hct MCV MCH MCHC RDW Plt Count MPV Immature Gran % (Auto) Neut % (Auto) Lymph % (Auto) [place] % (Auto) Eos % (Auto) Baso % (Auto) Lymph # (Auto) [place] # (Auto) Eos # (Auto) Baso # (Auto) Abs Immat Gran (auto) Absolute Neuts (auto) Absolute Nucleated RBC Nucleated RBC % (auto) ESR Hold Purple Top VBG pH VBG pCO2 VBG pO2 VBG HCO3 VBG O2 Saturation VBG Base Excess Sodium Potassium Chloride Carbon Dioxide Anion Gap BUN Creatinine Estim Creat Clear Calc Estimated GFR POC Glucose 130 H Random Glucose Lactic Acid Calcium Phosphorus Magnesium Total Bilirubin Direct Bilirubin AST ALT Alkaline Phosphatase Ammonia C-Reactive Protein Total Protein Albumin Random Vancomycin Airway Mallampati Class: II TM Dist: >3cm Neck ROM: Full Partial: Upper Heart: rrr Lungs: cta b/L Assessment and Plan Assessment Anesthesia Assessment: Anesthesia Plan Discussed and Chart Reviewed Final Anesthetic Review Family History of Problems with Anesthesia: No History of Problems with Anesthesia: No NPO: Yes ASA Class: IV Final Preanesthetic Review: No Changes in Pt Med Stat, Meds/Allgs Chart Reviewed, Consent Obtained/Reviewed and Anes Risks/Benef Reviewed Patient Risk: High Procedure Risk: Low Anesthetic Plan Anesthetic Plan: MAC: Disposition: Standard PACU
--- NOTE | 2024-09-09 14:38 | P.OP_ITS ---
Operative Note Operative Note Date of Service: 09/09/24 Narrative: Operative Note Narrative: Preop diagnosis: 1. Right hand severe peripheral vascular disease and necrosis status post right middle finger ray amputation , and right index finger PIP amputation with worsening necrosis and possible infection Postop diagnosis: Same Procedure: 1. Right hand I&D including I and D of 3rd metacarpal bone, and index finger proximal phalanx bone 2. Right index finger revision amputation at the proximal phalanx level Surgeon: Beatriz Rosales MD Cash Shortage Investigator: None Anesthesia: Regional block plus sedation Findings: The patient still has some cap refill to the ring and small fingers though it is very slow. The patient has developed necrosis of the radial tissues of the right ring finger at the proximal phalanx and 3rd webspace levels. There was also necrosis of the tissues at the distal aspect of the index finger amputation site with some evidence of worsening of the vascularities to the tissues on the ulnar aspect of the remaining index finger proximal phalanx and 2nd webspace areas. No appreciable bleeding even at the index finger new amputation site Implants: None Tourniquet time: 0 minutes EBL: 5.0 ml Specimen: Cultures taken from within the wound at the depth of the 3rd metacarpal. The the bone and tissue from the new index finger amputation site were sent to pathology Drains: None Complications: None Disposition: Brought to the recovery room in stable condition Plan: Admit back to floor for IV antibiotics Wound check and dressing change by ortho in 1-2 days. Check cultures and adjust antibiotics as indicated Anticipate return to the operating room 3 days for likely transmetacarpal amputations of the index finger, and likely transmetacarpal amputation of the ring finger depending on soft tissue changes in the next few days. If the soft tissues on the radial aspect of the base of the index finger remained viable, I am hoping to use that for soft tissue coverage. Similarly, we may be able to use some of the ulnar-sided tissue from the ring finger to allow for adequate soft tissue coverage if it remains viable. Indications: The patient is a 69 year old man with severe peripheral vascular disease, necrosis and infection involving the right hand as noted above status post PIP level amputation of the index finger and transmit a carpal ray resection of the middle finger in addition to previous I&D. The risks and b enefits of operative treatment, including but not limited to risk of damage to blood vessels, nerves, tendons, infection, recurrence, persistent pain or numbness, incomplete resolution of preoperative symptoms, or need for further surgery were discussed with the patient and his son and they wished to proceed with surgery. Procedure: Once consent was obtained patient was brought back to the operating suite and placed in the operating table in a supine position. A regional block was performed by the anesthesia team. Anesthesia was administered by the anesthesia team. A tourniquet was applied to the proximal aspect of the right upper extremity and this was not inflated during the case. Patient has developed necrosis in the distal aspect of the right index finger amputation site. There also appears to be some increasing necrosis within the tissues in the area where the 3rd metacarpal neck amputation site. Also in the last few days it appears that he has developed rather newer necrosis involving the ulnar soft tissues of the ring finger from about the PIP joint extending into the 3rd webspace. He still has some cap refill to the ring and small fingers though it is not optimal. No gross purulence observed, though we did obtain cultures from within the wound at the 3rd metacarpal. A revision amputation was performed on the index finger through the proximal phalanx shaft level. This was done by cutting circumferentially about the shaft level of the index finger down to the level of bone. This was done with a 15. Blade. This then allowed me to use a bone biter to cut through the proximal phalanx shaft. The distal aspect of the index finger was removed and sent to pathology. I used a rongeur to smooth up the ends of the bone. I will note that there was not any appreciable bleeding, in this digit will likely require a more proximally amputation. The more radial tissues across the MCP joint at this point appeared to be viable wears the more ulnar tissues appeared to be less viable. The tissues at the 3rd metacarpal amputation site were debrided of nonviable tissue using a 15. Blade and iris scissors. This involved tissue down to the 3rd metacarpal at the shaft amputation site. Some of the superficial tissues along the radial aspect of the ring finger from the PIP joint down to the 3rd webspace were also debrided, extending to deeper tissues as we get into the 3rd webspace. These tissue certainly appear to have developed more vascular compromise over the last few days in comparison with radiographs taken. At present the soft tissues on the ulnar half of the ring finger appeared to be more viable. All wounds were copiously irrigated with normal saline. Again only very minimal bleeding was seen. The skin edges of the index finger amputation site and also of the dorsal tissues over the 3rd metacarpal amputation site were loosely reapproximated with 4-0 nylon suture. A sterile dressing was then loosely applied so as not to constrict or apply significant pressure.. The patient appears to have tolerated the procedure well and with no complications.
--- NOTE | 2024-09-09 15:06 | MHC.SHP ---
Pre-Procedural Eval Section A - 24 Hr Update-Section A only Date of Service: 09/09/24 The patient is an INPATIENT: Yes Changes since office visit: Yes Cold of Flu in the past 2 weeks, Yes New Medical Problems, Yes Changes in Medication and Yes Patient answered all questions The patient has been examined within 24 hours of the surgical procedure. The History & Physical has been completed within 30 days and I have reviewed it.: Yes Section B - Complete if H&P > 30 days Chief Complaint: Right hand necrosis and infection Allergies: Allergies Allergy/AdvReac Type Severity Reaction Status Date / Time Iodinated Contrast Media Allergy Severe Facial Verified 08/22/24 11:22 (Contrast Dye) Swelling hydralazine AdvReac Severe vasculitis Verified 08/22/24 11:22 Plan Diagnosis/Plan: Unchanged (Assessment and plan:) I have reviewed the history and physical and performed a pertinent physical examination on my patient. No changes have occurred unless specified. Assessment and plan: 1. Right hand severe peripheral vascular disease and necrosis status post repeat I&Ds, right middle finger ray amputation to the middle of the 3rd metacarpal, and status post right index finger amputation to the PIP joint with infection and worsening of necrosis. I had a discussion with the patient's son and the patient in preop hold. We discussed operative and non operative treatment options at length. We certainly need to proceed with another I&D. He is starting to have some new evidence of necrosis in the radial aspect of the ring finger that may jeopardize this digit. We are also seeing necrosis at the amputation site of the index finger, and further necrosis in the distal aspect of the 3rd metacarpal area in the hand. My plan today is for repeat I and D to further assess the viability of tissues at present and progression of necrosis. It is possible that we may proceed with a revision amputation or amputation of the index middle and or ring finger today, though I think it is more likely that more definitive treatment is anticipated 3 days from now. The risks and benefits of operative treatment were discussed with the patient and the patient wishes to proceed with surgery. These risks include, but are not limited to risk of damage to blood vessels, nerves, tendons, infection, recurrence, incomplete relief of preoperative symptoms, persistent pain, possible need for further surgery and the risks associated with regional blocks and anesthesia. The plan is to take the patient to the operating room today for the following procedures: 1. Right hand repeat I&D 2. Possible amputation/revision amputation of the right index, middle and or ring fingers as indicated All of the preoperative paperwork including the consent was filled out today. All the patient's questions were answered. Time Spent With Patient Time: Total time managing care of this patient today ____ minutes.
--- NOTE | 2024-09-09 16:10 | P.PNNP_ITS ---
Subjective Subjective Date of Service: 09/09/24 Interval history: Seen and evaluated this morning while in dialysis Blood pressure is improving after dialysis no other events Physical Exam 2 Vital Signs: Vital Signs: Last Vital Signs Temp 97.9 F 09/09/24 13:42 Pulse 64 09/09/24 13:42 Resp 15 09/09/24 13:42 BP 132/71 09/09/24 13:42 Pulse Ox 99 09/09/24 13:42 O2 Del Method Room Air 09/09/24 13:42 O2 Flow Rate 2 09/04/24 03:34 BMI result Body Mass Index 27.3 General: Chronic ill appearing and tired appearing Nutritional Appearance: well nourished and normal weight Eyes: appearance normal, both eyes and all related structures; Alignment and Position: alignment normal and position normal Neck: No lymphadenopathy, no thyromegaly Resp: bilateral air entry equal, occasional added sounds present Cardio: Regular rate, regular rhythm; Heart sounds: S1 normal heart sound present and S2 normal heart sound present, no edema GI: soft, nontender, no guarding, no hepatosplenomegaly : bladder normal to inspection, bladder normal to palpation, no renal angle tenderness Skin: no rashes or lesions noted and elasticity normal Neuro: oriented to person, oriented to place, oriented to time and moves all extremities Objective Data Labs 09/02/24 05:46 09/04/24 05:40 Labs: Laboratory Results - last 24 hr 09/08/24 09/08/24 09/09/24 16:04 20:32 07:13 POC Glucose 154 H 122 H 144 H 09/09/24 09/09/24 11:42 13:54 POC Glucose 138 H 130 H Microbiology Microbiology Results: Microbiology 08/22/24 14:52 Blood - Venous Blood Culture - Final No growth after 5 days. 08/22/24 14:20 Blood - Venous Blood Culture - Final No growth after 5 days. Procedures Date of Service Date of Service: 09/09/24 Assessment & Plan Assessment and plan (1) ESRD needing dialysis: Status: Acute (2) Hyperkalemia: Status: Acute Plan Seen and examined the patient during dialysis Tolerating hemodialysis sessions well, continue with Monday/Monday/Monday schedule Blood pressure is better after dialysis, continue amlodipine 10 mg, losartan 50 mg and Doxazocin; if needed can increase carvedilol to 25 mg b.i.d. Continue sevelamer 800 mg TID with meals for the management of hyperphosphatemia Vancomycin dosing as per pre dialysis levels Time Spent With Patient Time: Total time managing care of this patient today ____ minutes. Progress Note: Quality Stroke Does the patient have a stroke diagnosis?: No
--- NOTE | 2024-09-09 18:11 | PC.NURSE ---
17:50 - patient returned from OR - patient very sleepy, falls back to sleep mid conversation. Concern for aspiration, as with PO medications administered earlier patient was coughing and clearing throat. Concern for aspiration at this time due to patient unable to stay awake. MD Winkler aware of held medications and speech consult ordered. Patient unable to lift left arm off the bed at this time post OR procedure, but reports having sensation, positive right radial pulse. Javy bandage in place on right hand, clean, dry and intact. Discussed with family concern for aspiration at this time due to patient's sleepiness. Seizure pads remains on bed, bed alarm on, call montilla within reach.
[2024-09-09 18:18] LABS: Glucose, Whole Blood 127 mg/dL (60-115)
[2024-09-09 20:51] LABS: Glucose, Whole Blood 148 mg/dL (60-115)
[2024-09-10] VITALS (7 sets, daily range): BP systolic 124–198; BP diastolic 58–93; PULSE 57–65; RESP 12–20; TEMP 36.5–37.3; O2SAT 92–98
[2024-09-10 05:29] LABS: MANUAL DIFF FLAG NO
[2024-09-10 05:36] LABS: Hematocrit 37.8 % (42.0-52.0); Hemoglobin 11.8 g/dl (14.0-18.0); Imm Gran Abs Auto 0.08 X10*3/uL (0.00-0.03); Imm Gran Pct Auto 0.6 % (0.0-0.4); Lymphocytes Absolute Auto 1.4 X10*3/uL (1.2-4.9); Mean Corpuscular HGB Conc 31.2 g/dl (31.0-36.0); Mean Corpuscular Hemoglobin 22.6 pg (27.0-33.0); Mean Corpuscular Volume 72.4 fL (80.0-98.0); NRBC Abs Auto 0.000 X10*3/uL (0.0-0.012); NRBC Pct Auto 0.0 /100WBC (0.0-0.2); Platelet Count 262 X10*3/uL (160-400); Red Blood Count 5.22 X10*6/uL (4.60-5.80); White Blood Count 14.1 X10*3/uL (4.8-10.8)
[2024-09-10 05:58] LABS: Anion Gap 24 (12-20); Blood Urea Nitrogen 59 mg/dL (9-16); Calcium 9.7 mg/dL (8.4-10.2); Carbon Dioxide 20 mmol/L (22-29); Chloride 97 mmol/L (96-108); Creatinine Clr Calc Pharmacy 9.1; Estimated Glomerular Filt Rate 8; Potassium 6.3 mmol/L (3.3-5.1); Sodium 135 mmol/L (135-145)
[2024-09-10] MEDS: Calcium Gluconate/NaCl,Iso-Osm 1 GM/50 ML PLAST..BAG IV (06:45)
--- NOTE | 2024-09-10 07:26 | PC.NURSE ---
0600- critical lab values received of potassium of 6.3 and creatine level of 7.07. Hospitalist on duty also received theses critical values and new orders were placed to patients Mar. charge nurse assisted to obtain Insulin R ordered in ICU Dept and all orders given, noted did have to wait on calc gluconate to be delivered from pharmacy. no status changes to patient, report given to day RN on labs and medications given.
[2024-09-10 07:46] LABS: Glucose, Whole Blood 153 mg/dL (60-115)
[2024-09-10] MEDS: Fluticasone/Umeclidinium/Vilanterol 100/62.5/25 BLST.W.DEV 1 PUFF INHALE (08:03)
[2024-09-10] MEDS: Aspirin Enteric Coated 81 MG TABLET.DR PO (08:21)
[2024-09-10] MEDS: Sevelamer Carbonate Tablet 800 MG TABLET PO ×2 (08:22→12:17)
[2024-09-10] MEDS: 0.9 % Sodium Chloride Flush 3 ML SYRINGE IVFLUSH ×3 (08:30→20:15)
--- NOTE | 2024-09-10 09:39 | HO.POSTANES ---
Post Anesthesia Evaluation Post Anesthesia Evaluation Date of Service: 09/10/24 Vital Signs: Vital Signs Temp Pulse Resp BP Pulse Ox O2 Del Method 09/10/24 08:06 97.7 F 57 12 198/93 H 96 Room Air 09/10/24 08:05 60 18 09/10/24 03:39 98.2 F 58 18 163/73 H 94 Room Air 09/09/24 23:54 98.8 F 61 18 163/77 H 93 Room Air Anesthesia: Regional and Nerve Block Mental Status: Awake Pain Control: Satisfactory Nausea/Vomiting: None Hydration: Adequate Anesthesia-Related Issues: No Anes. Related Issues
--- NOTE | 2024-09-10 10:10 | P.PNNP_ITS ---
Subjective Subjective Date of Service: 09/10/24 Interval history: Blood pressures elevated / repeat I&D of 3rd metacarpal bone and index finger, right index finger revision amputation. patient denies concerns/new complaints Physical Exam 2 Vital Signs: Vital Signs: Last Vital Signs Temp 98.3 F 09/10/24 11:57 Pulse 62 09/10/24 11:57 Resp 20 09/10/24 11:57 BP 129/65 09/10/24 11:57 Pulse Ox 94 09/10/24 11:57 O2 Del Method Room Air 09/10/24 11:57 O2 Flow Rate 2 09/04/24 03:34 BMI result Body Mass Index 27.3 Const: General: alert and awake Resp: Effort & Inspection: normal respiratory effort and able to speak in complete sentences Auscultation: clear to auscultation bilaterally Cardio: Rate: regular rate Rhythm: regular rhythm Heart sounds: S1 normal heart sound present and S2 normal heart sound present GI: Palpation (GI): Soft to palpation and nontender Skin: Wounds: wounds noted (right hand dressing- s/p amp debridement of 2nd/3rd digits. ) Extrem: General: No edema and No pedal edema Objective Data Labs 09/10/24 05:16 09/10/24 10:12 Labs: Laboratory Results - last 24 hr 09/09/24 09/09/24 09/09/24 13:54 17:54 17:59 WBC RBC Hgb Hct MCV MCH MCHC RDW Plt Count MPV Immature Gran % (Auto) Neut % (Auto) Lymph % (Auto) Gonzales % (Auto) Eos % (Auto) Baso % (Auto) Lymph # (Auto) Gonzales # (Auto) Eos # (Auto) Baso # (Auto) Abs Immat Gran (auto) Absolute Neuts (auto) Absolute Nucleated RBC Nucleated RBC % (auto) Sodium Potassium Chloride Carbon Dioxide Anion Gap BUN Creatinine Estim Creat Clear Calc Estimated GFR POC Glucose 130 H 127 H Random Glucose Calcium Phosphorus Random Vancomycin 11.7 L 09/09/24 09/10/24 09/10/24 20:20 05:16 07:35 WBC 14.1 H RBC 5.22 Hgb 11.8 L Hct 37.8 L MCV 72.4 L MCH 22.6 L MCHC 31.2 RDW 19.0 H Plt Count 262 D MPV Not Reportable Immature Gran % (Auto) 0.6 H Neut % (Auto) 83.5 H Lymph % (Auto) 10.0 L Gonzales % (Auto) 5.8 Eos % (Auto) 0.0 Baso % (Auto) 0.1 Lymph # (Auto) 1.4 Gonzales # (Auto) 0.8 Eos # (Auto) 0.0 Baso # (Auto) 0.0 Abs Immat Gran (auto) 0.08 H Absolute Neuts (auto) 11.8 H Absolute Nucleated RBC 0.000 Nucleated RBC % (auto) 0.0 Sodium 135 Potassium 6.3 H* Chloride 97 Carbon Dioxide 20 L Anion Gap 24 H BUN 59 H Creatinine 7.07 H* Estim Creat Clear Calc 9.1 Estimated GFR 8 POC Glucose 148 H 153 H Random Glucose 117 H Calcium 9.7 D Phosphorus 8.0 H Random Vancomycin 09/10/24 09/10/24 10:12 11:23 WBC RBC Hgb Hct MCV MCH MCHC RDW Plt Count MPV Immature Gran % (Auto) Neut % (Auto) Lymph % (Auto) Gonzales % (Auto) Eos % (Auto) Baso % (Auto) Lymph # (Auto) Gonzales # (Auto) Eos # (Auto) Baso # (Auto) Abs Immat Gran (auto) Absolute Neuts (auto) Absolute Nucleated RBC Nucleated RBC % (auto) Sodium Potassium 5.8 H Chloride Carbon Dioxide Anion Gap BUN Creatinine Estim Creat Clear Calc Estimated GFR POC Glucose 271 H Random Glucose Calcium Phosphorus Random Vancomycin Microbiology Microbiology Results: Microbiology 09/09/24 13:00 Finger Gram Stain - Final 09/09/24 13:00 Finger Routine Culture - Preliminary Culture in progress. 08/22/24 14:52 Blood - Venous Blood Culture - Final No growth after 5 days. 08/22/24 14:20 Blood - Venous Blood Culture - Final No growth after 5 days. Procedures Date of Service Date of Service: 09/10/24 Assessment & Plan Assessment and plan (1) ESRD needing dialysis: Status: Acute Plan ESRD on HD MWF access: Right permcath appears euvolemic H&H 11.8 & 37.8- no indication for procrit at this time phos is 8.0- ensure sevelamer 800mg TID with meals. Calcium 9.7. K elevated this a.m. to 6.3- may give lokelma given no HD until tomorrow low potassium, phosphorous, and sodium diet fluid restriction 1.5L continue to monitor electrolytes renal function studies daily blood pressures elevated- will consider lowering dry weight if persistent will continue to follow Discussed with Dr Jimenez Time Spent With Patient Time: Total time managing care of this patient today ____ minutes. Progress Note: Quality Stroke Does the patient have a stroke diagnosis?: No
--- NOTE | 2024-09-10 10:29 | MHC.IC ---
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
[2024-09-10 10:42] LABS: Potassium 5.8 mmol/L (3.3-5.1)
[2024-09-10 11:56] LABS: Glucose, Whole Blood 271 mg/dL (60-115)
--- NOTE | 2024-09-10 14:59 | MHC.SL.SWA ---
Speech Pathologist Impression: Risk of Aspiration Due to: hx aspiration PNA limited ambulation Dysphasia Diet Status: no change Liquid Consistency and Strategies for Safe Swallow: Liquid Intake Recommendation: Thin Liquid Intake Strategies: Solid Food Consistency: Dietary Recommendations: Regular Oral Medication Intake: Whole with Liquid Please contact the pharmacy regarding appropriate crushable or liquid drug formulations that are available whenever modified delivery is recommended. Compensatory Strategies and Precautions to be Taken for Safe Swallow: upright small bites/sips slow rate Supervision While Eating and Drinking for Safe Swallow: Total Assistance (1:1) Recommendation for Speech: Inpatient Speech Therapy Comment: Recommend pt continue w/ regular solids, thin liquids, pills whole w/ liquid and 1-1 assistance feeding. Recommend 1-2 f/u to ensure toleration of diet. Insurance Claims Representative Clinican/Clinical Fellow: No Supervisory Statement: I have reviewed and agree with the student/clinical fellow's documentation: N/A Speech Language Pathologist: Janae Seaman M.A., CCC-HAZARDOUS MATERIALS DRIVER
[2024-09-10 16:33] LABS: Glucose, Whole Blood 248 mg/dL (60-115)
--- NOTE | 2024-09-10 18:14 | HO.PM.IMPN ---
Subjective Subjective Date of Service: 09/10/24 Interval History: esrd,hyperkalemia Review of Systems no new c/o no sob hand infection- Right hand I&D including I and D of 3rd metacarpal bone, and index finger proximal phalanx bone. Physical Exam Vital Signs: Vital Signs: Last Vital Signs Temp 98.4 F 09/10/24 15:42 Pulse 61 09/10/24 15:42 Resp 18 09/10/24 15:42 BP 124/58 L 09/10/24 15:42 Pulse Ox 93 09/10/24 15:42 O2 Del Method Room Air 09/10/24 15:42 O2 Flow Rate 2 09/04/24 03:34 BMI result Body Mass Index 27.3 General resting in bed,in no acute distress. Neck supple no JVD, no distended neck veins. CVS regular rate rhythm, Respiratory lungs clear to auscultation, diminished, no respiratory distress, no wheeze, no rhonchi. Gastrointestinal abdomen soft, non tender, bowel sounds audible Extremities right BKA , left LE wound covered with dressing. Neuro non focal , speech juan Objective Data Active Medications Acetaminophen (Acetaminophen 325 Mg Tablet) 650 mg PO Q6H PRN PRN Reason: Pain, Mild 1-3,fever,headache Last Admin: 09/06/24 12:09 Dose: 650 mg Documented By: JAGRUTI Albuterol Sulfate (Albuterol Sulfate 90 Mcg 8 Gm Inhaler) 2 puff INHALE Q4H PRN PRN Reason: Wheezing Allopurinol (Allopurinol 100 Mg Tablet) 100 mg PO MOWEFR@1600 COUNT INCLUDES THE [facility] Last Admin: 09/09/24 18:10 Dose: Not Given Documented By: JAGRUTI Non-Admin Reason: Patient Asleep Amlodipine Besylate (Amlodipine Besylate 10 Mg Tablet) 10 mg PO DAILY COUNT INCLUDES THE [facility]; Protocol Last Admin: 09/10/24 08:21 Dose: 10 mg Documented By: KUMAR Aspirin (Aspirin Enteric Coated 81 Mg Tablet.) 81 mg PO MOWEFR@1600 COUNT INCLUDES THE [facility] Last Admin: 09/09/24 18:10 Dose: Not Given Documented By: JAGRUTI Non-Admin Reason: Patient Asleep Aspirin (Aspirin Enteric Coated 81 Mg Tablet.) 81 mg PO SUTUTHSA@0900 COUNT INCLUDES THE [facility] Last Admin: 09/10/24 08:21 Dose: 81 mg Documented By: KUMAR Atorvastatin Calcium (Atorvastatin Calcium 40 Mg Tablet) 40 mg PO MOWEFR@1600 COUNT INCLUDES THE [facility] Last Admin: 09/09/24 18:10 Dose: Not Given Documented By: JAGRUTI Non-Admin Reason: Patient Asleep Atorvastatin Calcium (Atorvastatin Calcium 40 Mg Tablet) 40 mg PO SUTUTHSA@0900 COUNT INCLUDES THE [facility] Last Admin: 09/10/24 08:22 Dose: 40 mg Documented By: KUMAR Calcium Carbonate (Calcium Carbonate 750 Mg Tab.Chew) 750 mg PO Q4H PRN PRN Reason: Heartburn Carvedilol (Carvedilol 25 Mg Tablet) 25 mg PO BID COUNT INCLUDES THE [facility]; Protocol Last Admin: 09/10/24 08:21 Dose: 25 mg Documented By: KUMAR Dextrose (Dextrose 50 % 25 Gm/50 Ml Syringe) 25 gm IVPUSH Q15M PRN; Protocol PRN Reason: per Hypoglycemia Standing Ord. Last Admin: 08/27/24 07:59 Dose: 25 gm Documented By: TRUDY Docusate Sodium (Docusate Sodium 100 Mg Capsule) 100 mg PO DAILY COUNT INCLUDES THE [facility] Last Admin: 09/10/24 08:22 Dose: 100 mg Documented By: KUMAR Doxazosin Mesylate (Doxazosin Mesylate 2 Mg Tablet) 4 mg PO BEDTIME COUNT INCLUDES THE [facility]; Protocol Last Admin: 09/09/24 20:03 Dose: 4 mg Documented By: SINDHU Fluticasone/Umeclidinium/Vilanterol (Fluticasone/Umeclidinium/Vilanterol 100/62.5/25 Blst.W.Dev) 1 puff INHALE RDAILY COUNT INCLUDES THE [facility] Last Admin: 09/10/24 08:03 Dose: 1 puff Documented By: EVENS Furosemide (Furosemide 40 Mg Tablet) 80 mg PO MOWEFR@1600 COUNT INCLUDES THE [facility]; Protocol Last Admin: 09/09/24 18:11 Dose: Not Given Documented By: JAGRUTI Non-Admin Reason: Patient Asleep Furosemide (Furosemide 40 Mg Tablet) 80 mg PO SUTUTHSA@0900 COUNT INCLUDES THE [facility]; Protocol Last Admin: 09/10/24 08:22 Dose: 80 mg Documented By: KUMAR Glucose (Glucose Gel 15 Gm Gel..Gram.) 15 gm PO Q15M PRN PRN Reason: per Hypoglycemia Standing Ord. Last Admin: 08/25/24 04:50 Dose: 15 gm Documented By: HENRIETTA Heparin Sodium (Porcine) (Heparin Sodium,Porcine 5,000 Unit/Ml Vial) 5,000 unit SUBCUT Q12H COUNT INCLUDES THE [facility] Last Admin: 09/10/24 12:18 Dose: 5,000 unit Documented By: BREANNE Hydrocortisone (Hydrocortisone 1 % Ointment 28.35 Gm Tube) 1 appl TOPICAL BID PRN; Protocol PRN Reason: itching Vancomycin HCl 500 mg/ Sodium (Chloride) 110 mls @ 110 mls/hr IV ONCE ONE Stop: 08/23/24 20:59 Cefepime HCl 1 gm/ Sodium (Chloride) 50 mls @ 100 mls/hr IV Q24H COUNT INCLUDES THE [facility] Last Infusion: 09/10/24 17:41 Dose: Infused Documented By: BREANNE Insulin Glargine (Insulin Glargine,Hum.Rec.Anlog 100 Unit/Ml 10 Ml Vial) 10 unit SUBCUT BEDTIME COUNT INCLUDES THE [facility] Last Admin: 09/09/24 22:01 Dose: Not Given Documented By: SINDHU Non-Admin Reason: help per hospitalist order, pt NPO Insulin Human Lispro (Insulin Lispro 100 Unit/Ml 3 Ml Vial) 0 unit SUBCUT QIDACHS COUNT INCLUDES THE [facility]; Protocol Last Admin: 09/10/24 17:02 Dose: 4 unit Documented By: BREANNE Levetiracetam (Levetiracetam 1,000 Mg Tablet) 1,000 mg PO BID COUNT INCLUDES THE [facility] Last Admin: 09/10/24 08:22 Dose: 1,000 mg Documented By: KUMAR Losartan Potassium (Losartan Potassium 50 Mg Tablet) 50 mg PO SUTUTHSA@0900 COUNT INCLUDES THE [facility]; Protocol Last Admin: 09/10/24 08:22 Dose: 50 mg Documented By: KUMAR Losartan Potassium (Losartan Potassium 50 Mg Tablet) 50 mg PO MOWEFR@1600 COUNT INCLUDES THE [facility]; Protocol Last Admin: 09/09/24 18:11 Dose: Not Given Documented By: JAGRUTI Non-Admin Reason: Patient Asleep Magnesium Hydroxide (Milk Of Magnesia 30 Ml Oral.Susp) 30 ml PO DAILY PRN PRN Reason: Constipation Last Admin: 09/06/24 17:00 Dose: 30 ml Documented By: JAGRUTI Melatonin (Melatonin 3 Mg Tablet) 6 mg PO BEDTIME PRN PRN Reason: Insomnia Last Admin: 09/04/24 19:29 Dose: 6 mg Documented By: PATRICIA Naloxone HCl (Naloxone Hcl 0.4 Mg/Ml Vial) 0.04 mg IVPUSH Q5M PRN PRN Reason: Excessive sedation or RR < 8 Omeprazole (Omeprazole 20 Mg Capsule.Dr) 20 mg PO DAILY@0630 COUNT INCLUDES THE [facility] Last Admin: 09/10/24 05:33 Dose: Not Given Documented By: SINDHU Non-Admin Reason: NPO Ondansetron HCl (Ondansetron Hcl 4 Mg/2 Ml Vial) 4 mg IVPUSH Q8H PRN PRN Reason: Nausea and Vomiting Pharmacy Consult (Consult Rx Vancomycin Dosing) 1 each MISCELLANE DAILY PRN PRN Reason: Consult order Pregabalin (Pregabalin 75 Mg Capsule) 75 mg PO DAILY COUNT INCLUDES THE [facility] Last Admin: 09/10/24 08:22 Dose: 75 mg Documented By: KUMAR Sevelamer Carbonate (Sevelamer Carbonate Tablet 800 Mg Tablet) 800 mg PO TIDWM COUNT INCLUDES THE [facility] Last Admin: 09/10/24 17:37 Dose: Not Given Documented By: BREANNE Non-Admin Reason: unable to crush med, pt sleepy Sodium Chloride (0.9 % Sodium Chloride Flush 3 Ml Syringe) 3 ml IVFLUSH QSHIFT COUNT INCLUDES THE [facility] Last Admin: 09/10/24 17:07 Dose: 3 ml Documented By: BREANNE Labs 09/10/24 05:16 09/10/24 10:12 Labs: Laboratory Results - last 24 hr 09/09/24 09/09/24 09/09/24 17:54 17:59 20:20 MCV MCH MCHC RDW Plt Count MPV Immature Gran % (Auto) Neut % (Auto) Lymph % (Auto) [place] % (Auto) Eos % (Auto) Baso % (Auto) Lymph # (Auto) [place] # (Auto) Eos # (Auto) Baso # (Auto) Abs Immat Gran (auto) Absolute Neuts (auto) Absolute Nucleated RBC Nucleated RBC % (auto) Anion Gap Estim Creat Clear Calc Estimated GFR POC Glucose 127 H 148 H Random Glucose Calcium Phosphorus Random Vancomycin 11.7 L 09/10/24 09/10/24 09/10/24 05:16 07:35 11:23 MCV 72.4 L MCH 22.6 L MCHC 31.2 RDW 19.0 H Plt Count 262 D MPV Not Reportable Immature Gran % (Auto) 0.6 H Neut % (Auto) 83.5 H Lymph % (Auto) 10.0 L [place] % (Auto) 5.8 Eos % (Auto) 0.0 Baso % (Auto) 0.1 Lymph # (Auto) 1.4 [place] # (Auto) 0.8 Eos # (Auto) 0.0 Baso # (Auto) 0.0 Abs Immat Gran (auto) 0.08 H Absolute Neuts (auto) 11.8 H Absolute Nucleated RBC 0.000 Nucleated RBC % (auto) 0.0 Anion Gap 24 H Estim Creat Clear Calc 9.1 Estimated GFR 8 POC Glucose 153 H 271 H Random Glucose 117 H Calcium 9.7 D Phosphorus 8.0 H Random Vancomycin 09/10/24 16:17 MCV MCH MCHC RDW Plt Count MPV Immature Gran % (Auto) Neut % (Auto) Lymph % (Auto) [place] % (Auto) Eos % (Auto) Baso % (Auto) Lymph # (Auto) [place] # (Auto) Eos # (Auto) Baso # (Auto) Abs Immat Gran (auto) Absolute Neuts (auto) Absolute Nucleated RBC Nucleated RBC % (auto) Anion Gap Estim Creat Clear Calc Estimated GFR POC Glucose 248 H Random Glucose Calcium Phosphorus Random Vancomycin Microbiology Microbiology Results: Microbiology 09/09/24 13:00 Gram Stain - Final Finger Routine Culture - Preliminary Culture in progress. Assessment and Plan (1) Hyperkalemia: Status: Acute (2) ESRD needing dialysis: Status: Acute Plan 69yo M with DM2, ESRD on HD MWF, PVD, 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 day 9 status post ray resection of right 3rd metacarpal afebrile pain control adequate On vancomycin since 08/22 and cefepime 08/31 hand surgery s/p i&D yetserday-plan for possible amputation on 09/12 surgery is aware to follow up on patient today. ESRD on HD with hyperkalemia HD MWF, given loklema ,hold losartan ,low potassium/phos diet potassium improving from 6.3 -5.8 ,will give another dose of loklemia moniter bmp closely nephrology following HTN Acceptable control on current therapies adjust as indicated DM2 No further hypoglycemia. Control ok lispro correctional scale... Adjust as indicated DVT PPx SC heparin In my clinical judgment, the patient requires continued inpatient hospitalization for the following reasons: IV ABX, surgical management Quality Stroke Does the patient have a stroke diagnosis?: No VTE Prior VTE?: No VTE Risk Level:: Medical - moderate - high VTE Device Contraindication: Treatment Not Indicated VTE Drug Contraindication: N/A - Med Ordered
--- NOTE | 2024-09-10 19:10 | P.PNOP_ITS ---
Subjective Subjective Date of Service: 09/10/24 Interval history: 69-year-old male status post multiple surgeries over the last 2 weeks for necrotic digits of right hand, most recent revision I and D and revision amputation 09/09/[address] Rosales Patient is resting comfortably in bed No acute events overnight Pain appears well managed No other acute complaints Physical Exam Vital Signs: Vital Signs: Last Vital Signs Temp 98.4 F 09/10/24 15:42 Pulse 61 09/10/24 15:42 Resp 18 09/10/24 15:42 BP 124/58 L 09/10/24 15:42 Pulse Ox 93 09/10/24 15:42 O2 Del Method Room Air 09/10/24 15:42 O2 Flow Rate 2 09/04/24 03:34 BMI result Body Mass Index 27.3 Extrem: Other: Dressing on right hand clean, dry, intact No surrounding erythema noted Patient is able to flex and extend the remaining digits of the right hand without difficulty Compartments soft, nontender Distal sensation intact Capillary refill brisk Procedures Date of Service Date of Service: 09/10/24 Progress Note: A&P Assessment and plan (1) 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: Status: Acute (2) Status post amputation of finger of right hand: Status: Acute (3) Dry gangrene: Status: Acute (4) Necrosis of finger: Status: Acute Plan * Continue pain management * Continue IV antibiotics * Dressing is not changed today per instructions of Dr. Rosales * Dressing will be changed tomorrow * Patient understands this and is amenable to this plan * Continue with all other recommendations per Medicine * Plan for further surgery on , 09/12/[address] Rosales * NPO after midnight Monday night * Continue with all other recommendations per Medicine Time Spent With Patient Time: Total time managing care of this patient today ____ minutes. Quality Stroke Does the patient have a stroke diagnosis?: No VTE Prior VTE?: No VTE Risk Level:: Medical - moderate - high VTE Device Contraindication: Treatment Not Indicated VTE Drug Contraindication: N/A - Med Ordered
[2024-09-10 19:43] LABS: Anion Gap 24 (12-20); Blood Urea Nitrogen 75 mg/dL (9-16); Calcium 9.4 mg/dL (8.4-10.2); Carbon Dioxide 21 mmol/L (22-29); Chloride 98 mmol/L (96-108); Creatinine Clr Calc Pharmacy 7.6; Estimated Glomerular Filt Rate 6; Potassium 6.1 mmol/L (3.3-5.1); Sodium 137 mmol/L (135-145)
[2024-09-10 20:22] LABS: Glucose, Whole Blood 197 mg/dL (60-115)
[2024-09-10] MEDS: Insulin Glargine,Hum.rec.anlog 100 UNIT/ML 10 ML VIAL 10 UNIT SUBCUT (20:30)
[2024-09-10] MEDS: Calcium Gluconate/NaCl,Iso-Osm 2 GM/100 ML PLAST..BAG IV (21:21)
[2024-09-11 03:47] VITALS: BP 123/57; PULSE 59; RESP 18; TEMP 37.3; O2SAT 93
[2024-09-11 07:28] LABS: Anion Gap 22 (12-20); Blood Urea Nitrogen 63 mg/dL (9-16); Calcium 9.5 mg/dL (8.4-10.2); Carbon Dioxide 22 mmol/L (22-29); Chloride 100 mmol/L (96-108); Creatinine Clr Calc Pharmacy 9.2; Estimated Glomerular Filt Rate 8; Potassium 4.5 mmol/L (3.3-5.1); Sodium 139 mmol/L (135-145)
[2024-09-11 10:37] LABS: Glucose, Whole Blood 114 mg/dL (60-115)
[2024-09-11 10:38] VITALS: BP 114/57; PULSE 56; RESP 17; TEMP 36.4; O2SAT 92
[2024-09-11] MEDS: 0.9 % Sodium Chloride Flush 3 ML SYRINGE IVFLUSH ×3 (10:49→23:23)
[2024-09-11 11:20] LABS: Glucose, Whole Blood 112 mg/dL (60-115)
[2024-09-11 11:30] VITALS: BP 120/70; PULSE 64; RESP 17; TEMP 36.6; O2SAT 95
[2024-09-11] MEDS: Sevelamer Carbonate Tablet 800 MG TABLET PO ×2 (13:08→17:04)
--- NOTE | 2024-09-11 13:37 | W.PM.DNNEP ---
Subjective Subjective Date of Service: 09/11/24 This patient was seen during dialysis. Interval history: following for management of ESRD on HD while here for treatment of dry gangrene and ischemia of right 2nd and third digits. Pt reports pain in right hand (s/p right middle and index finger amputation, s/p debriedment 08/30 and 09/01). Plan for possible amputation of 09/12. reports outside of finger pain he has no complaints/concerns. Physical Exam Vital Signs: Vital Signs: Last Vital Signs Temp 97.8 F 09/11/24 11:30 Pulse 64 09/11/24 11:30 Resp 17 09/11/24 11:30 BP 120/70 09/11/24 11:30 Pulse Ox 95 09/11/24 11:30 O2 Del Method Room Air 09/11/24 11:30 O2 Flow Rate 2 09/04/24 03:34 BMI result Body Mass Index 27.3 Const: General: alert and awake Resp: Effort & Inspection: normal respiratory effort and able to speak in complete sentences Auscultation: clear to auscultation bilaterally Cardio: Rate: regular rate Rhythm: regular rhythm Heart sounds: S1 normal heart sound present and S2 normal heart sound present GI: Palpation (GI): Soft to palpation and nontender Skin: Wounds: wounds noted (right hand dressing- s/p amp debridement of 2nd/3rd digits. ) Extrem: General: No edema and No pedal edema Assessment & Plan Assessment and plan (1) ESRD needing dialysis: Status: Acute Plan ESRD on HD MWF access: Right permcath appears euvolemic H&H 11.8 & 37.8- no indication for procrit at this time phos is 8.0- ensure sevelamer 800mg TID with meals. Calcium 9.5. Potassium 4.5- ensure low potassium diet. low potassium, phosphorous, and sodium diet fluid restriction 1.5L continue to monitor electrolytes renal function studies daily blood pressures elevated- will consider lowering dry weight if persistent will continue to follow Discussed with Dr Jimenez Time Spent With Patient Time: Total time managing care of this patient today ____ minutes. Procedures Date of Service Date of Service: 09/11/24
--- NOTE | 2024-09-11 14:06 | PM.PNORT ---
Subjective Subjective Date of Service: 09/11/24 Interval history: 69-year-old male status post multiple surgeries over the last 2 weeks for necrotic digits of right hand, most recent revision I and D and revision amputation 09/09/[address] Rosales Patient is resting comfortably in bed No acute events overnight Pain appears well managed No other acute complaints Physical Exam Vital Signs: Vital Signs: Last Vital Signs Temp 97.8 F 09/11/24 11:30 Pulse 64 09/11/24 11:30 Resp 17 09/11/24 11:30 BP 120/70 09/11/24 11:30 Pulse Ox 95 09/11/24 11:30 O2 Del Method Room Air 09/11/24 11:30 O2 Flow Rate 2 09/04/24 03:34 BMI result Body Mass Index 27.3 Extrem: Other: Dressing on right hand clean, dry, intact Once dressing is removed, necrosis appears to be spreading up the ring finger No surrounding erythema noted Patient is able to flex and extend the remaining digits of the right hand without difficulty Compartments soft, nontender Distal sensation intact Capillary refill brisk Procedures Date of Service Date of Service: 09/11/24 Progress Note: A&P Assessment and plan (1) Necrosis of finger: Status: Acute (2) Dry gangrene: Status: Acute Plan Necrotic index and middle fingers of right hand Plan of care as discussed with both the patient and his son Nestor, who is also his healthcare proxy I educated the patient about the condition. I discussed both operative and nonoperative treatment options. The patient would like to proceed with surgery. The risks and benefits of operative treatment were discussed with the patient and the patient wishes to proceed with surgery. These risks include, but are not limited to, risk of damage to blood vessels, nerves, tendons, infection, recurrence, incomplete relief of preoperative symptoms, persistent pain, possible need for further surgery, and the risks associated with regional blocks and/or anesthesia. Plan is to take the patient to the operating room at some point in the next few weeks for the following procedures: 1. Revision amputation of right hand NPO at midnight Continue with all other recommendations per Medicine and other consulting services Time Spent With Patient Time: Total time managing care of this patient today ____ minutes. Quality Stroke Does the patient have a stroke diagnosis?: No VTE Prior VTE?: No VTE Risk Level:: Medical - moderate - high VTE Device Contraindication: Treatment Not Indicated VTE Drug Contraindication: N/A - Med Ordered
--- NOTE | 2024-09-11 14:16 | MHC.CM.PN ---
Per MD rounds no dc today. The patient is planned for O.R. tomorrow. DP resume VNA services. Patient's son will provide transportation home.
--- NOTE | 2024-09-11 14:17 | HO.PM.IMPN ---
Subjective Subjective Date of Service: 09/11/24 Interval History: esrd,hyperkalemia Dry gangrene/ischemia of R 2nd + 3rd fingers Review of Systems no new c/o. no new overnight events Review of Systems: Yes all other systems are reviewed and are negative Physical Exam Vital Signs: Vital Signs: Last Vital Signs Temp 97.8 F 09/11/24 11:30 Pulse 64 09/11/24 11:30 Resp 17 09/11/24 11:30 BP 120/70 09/11/24 11:30 Pulse Ox 95 09/11/24 11:30 O2 Del Method Room Air 09/11/24 11:30 O2 Flow Rate 2 09/04/24 03:34 BMI result Body Mass Index 27.3 General resting in bed,in no acute distress. Neck supple no JVD, no distended neck veins. CVS regular rate rhythm, Respiratory lungs clear to auscultation, diminished, no respiratory distress, no wheeze, no rhonchi. Gastrointestinal abdomen soft, non tender, bowel sounds audible Extremities right BKA , left LE wound covered with dressing. Neuro non focal , speech juan Objective Data Active Medications Acetaminophen (Acetaminophen 325 Mg Tablet) 650 mg PO Q6H PRN PRN Reason: Pain, Mild 1-3,fever,headache Last Admin: 09/06/24 12:09 Dose: 650 mg Documented By: JAGRUTI Albuterol Sulfate (Albuterol Sulfate 90 Mcg 8 Gm Inhaler) 2 puff INHALE Q4H PRN PRN Reason: Wheezing Allopurinol (Allopurinol 100 Mg Tablet) 100 mg PO MOWEFR@1600 [facility] [place] Last Admin: 09/09/24 18:10 Dose: Not Given Documented By: JAGRUTI Non-Admin Reason: Patient Asleep Amlodipine Besylate (Amlodipine Besylate 10 Mg Tablet) 10 mg PO DAILY [facility] [place]; Protocol Last Admin: 09/11/24 10:47 Dose: 10 mg Documented By: BREANNE Aspirin (Aspirin Enteric Coated 81 Mg Tablet.) 81 mg PO MOWEFR@1600 [facility] [place] Last Admin: 09/09/24 18:10 Dose: Not Given Documented By: JAGRUTI Non-Admin Reason: Patient Asleep Aspirin (Aspirin Enteric Coated 81 Mg Tablet.) 81 mg PO SUTUTHSA@0900 [facility] [place] Last Admin: 09/10/24 08:21 Dose: 81 mg Documented By: KUMAR Atorvastatin Calcium (Atorvastatin Calcium 40 Mg Tablet) 40 mg PO MOWEFR@1600 [facility] [place] Last Admin: 09/09/24 18:10 Dose: Not Given Documented By: JAGRUTI Non-Admin Reason: Patient Asleep Atorvastatin Calcium (Atorvastatin Calcium 40 Mg Tablet) 40 mg PO SUTUTHSA@0900 [facility] [place] Last Admin: 09/10/24 08:22 Dose: 40 mg Documented By: KUMAR Calcium Carbonate (Calcium Carbonate 750 Mg Tab.Chew) 750 mg PO Q4H PRN PRN Reason: Heartburn Carvedilol (Carvedilol 25 Mg Tablet) 25 mg PO BID [facility] [place]; Protocol Last Admin: 09/11/24 10:49 Dose: Not Given Documented By: BREANNE Non-Admin Reason: Decreased Heart Rate Dextrose (Dextrose 50 % 25 Gm/50 Ml Syringe) 25 gm IVPUSH Q15M PRN; Protocol PRN Reason: per Hypoglycemia Standing Ord. Last Admin: 08/27/24 07:59 Dose: 25 gm Documented By: TRUDY Docusate Sodium (Docusate Sodium 100 Mg Capsule) 100 mg PO DAILY [facility] [place] Last Admin: 09/11/24 10:47 Dose: 100 mg Documented By: BREANNE Doxazosin Mesylate (Doxazosin Mesylate 2 Mg Tablet) 4 mg PO BEDTIME [facility] [place]; Protocol Last Admin: 09/10/24 20:14 Dose: 4 mg Documented By: ODRISLashay Fluticasone/Umeclidinium/Vilanterol (Fluticasone/Umeclidinium/Vilanterol 100/62.5/25 Blst.W.Dev) 1 puff INHALE RDAILY [facility] [place] Last Admin: 09/11/24 07:59 Dose: Not Given Documented By: LEYDI Non-Admin Reason: Not In Room Furosemide (Furosemide 40 Mg Tablet) 80 mg PO MOWEFR@1600 [facility] [place]; Protocol Last Admin: 09/09/24 18:11 Dose: Not Given Documented By: JAGRUTI Non-Admin Reason: Patient Asleep Furosemide (Furosemide 40 Mg Tablet) 80 mg PO SUTUTHSA@0900 [facility] [place]; Protocol Last Admin: 09/10/24 08:22 Dose: 80 mg Documented By: KUMAR Glucose (Glucose Gel 15 Gm Gel..Gram.) 15 gm PO Q15M PRN PRN Reason: per Hypoglycemia Standing Ord. Last Admin: 08/25/24 04:50 Dose: 15 gm Documented By: HENRIETTA Heparin Sodium (Porcine) (Heparin Sodium,Porcine 5,000 Unit/Ml Vial) 5,000 unit SUBCUT Q12H [facility] [place] Last Admin: 09/11/24 10:48 Dose: 5,000 unit Documented By: BREANNE Hydrocortisone (Hydrocortisone 1 % Ointment 28.35 Gm Tube) 1 appl TOPICAL BID PRN; Protocol PRN Reason: itching Vancomycin HCl 500 mg/ Sodium (Chloride) 110 mls @ 110 mls/hr IV ONCE ONE Stop: 08/23/24 20:59 Cefepime HCl 1 gm/ Sodium (Chloride) 50 mls @ 100 mls/hr IV Q24H [facility] [place] Last Infusion: 09/10/24 17:41 Dose: Infused Documented By: BREANNE Insulin Glargine (Insulin Glargine,Hum.Rec.Anlog 100 Unit/Ml 10 Ml Vial) 10 unit SUBCUT BEDTIME [facility] [place] Last Admin: 09/10/24 20:30 Dose: 10 unit Documented By: ODRISLashay Insulin Human Lispro (Insulin Lispro 100 Unit/Ml 3 Ml Vial) 0 unit SUBCUT QIDACHS [facility] [place]; Protocol Last Admin: 09/11/24 11:57 Dose: Not Given Documented By: BREANNE Non-Admin Reason: No Insulin Coverage Levetiracetam (Levetiracetam 1,000 Mg Tablet) 1,000 mg PO BID [facility] [place] Last Admin: 09/11/24 10:48 Dose: 1,000 mg Documented By: BREANNE Losartan Potassium (Losartan Potassium 50 Mg Tablet) 50 mg PO SUTUTHSA@0900 [facility] [place]; Protocol On Hold: 09/10/24 18:15 Last Admin: 09/10/24 08:22 Dose: 50 mg Documented By: KUMAR Losartan Potassium (Losartan Potassium 50 Mg Tablet) 50 mg PO MOWEFR@1600 [facility]; Protocol On Hold: 09/10/24 18:15 Last Admin: 09/09/24 18:11 Dose: Not Given Documented By: JAGRUTI Non-Admin Reason: Patient Asleep Magnesium Hydroxide (Milk Of Magnesia 30 Ml Oral.Susp) 30 ml PO DAILY PRN PRN Reason: Constipation Last Admin: 09/06/24 17:00 Dose: 30 ml Documented By: JAGRUTI Melatonin (Melatonin 3 Mg Tablet) 6 mg PO BEDTIME PRN PRN Reason: Insomnia Last Admin: 09/04/24 19:29 Dose: 6 mg Documented By: PATRICIA Naloxone HCl (Naloxone Hcl 0.4 Mg/Ml Vial) 0.04 mg IVPUSH Q5M PRN PRN Reason: Excessive sedation or RR < 8 Omeprazole (Omeprazole 20 Mg Capsule.Dr) 20 mg PO DAILY@0630 [facility] [place] Last Admin: 09/11/24 06:00 Dose: Not Given Documented By: ODRISLashay Non-Admin Reason: pt too sleepy Ondansetron HCl (Ondansetron Hcl 4 Mg/2 Ml Vial) 4 mg IVPUSH Q8H PRN PRN Reason: Nausea and Vomiting Pharmacy Consult (Consult Rx Vancomycin Dosing) 1 each MISCELLANE DAILY PRN PRN Reason: Consult order Pregabalin (Pregabalin 75 Mg Capsule) 75 mg PO DAILY [facility] [place] Last Admin: 09/11/24 10:47 Dose: 75 mg Documented By: BREANNE Sevelamer Carbonate (Sevelamer Carbonate Tablet 800 Mg Tablet) 800 mg PO TIDWM [facility] [place] Last Admin: 09/11/24 13:08 Dose: 800 mg Documented By: BREANNE Sodium Chloride (0.9 % Sodium Chloride Flush 3 Ml Syringe) 3 ml IVFLUSH QSHIFT [facility] [place] Last Admin: 09/11/24 10:49 Dose: 3 ml Documented By: BREANNE Labs 09/10/24 05:16 09/11/24 06:49 Labs: Laboratory Results - last 24 hr 09/10/24 09/10/24 09/10/24 16:17 19:08 20:18 Hold Purple Top Anion Gap 24 H Estim Creat Clear Calc 7.6 Estimated GFR 6 POC Glucose 248 H 197 H Random Glucose 151 H Calcium 9.4 09/11/24 09/11/24 09/11/24 06:49 10:34 11:10 Hold Purple Top SEE NOTE Anion Gap 22 H Estim Creat Clear Calc 9.2 Estimated GFR 8 POC Glucose 114 112 Random Glucose 131 H Calcium 9.5 Microbiology Microbiology Results: Microbiology 09/09/24 13:00 Gram Stain - Final Finger Routine Culture - Final Assessment and Plan (1) Hyperkalemia: Status: Acute (2) ESRD needing dialysis: Status: Acute Plan 69yo M with DM2, ESRD on HD MWF, PVD, 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 day 9 status post ray resection of right 3rd metacarpal afebrile pain control adequate On vancomycin since 08/22 and cefepime 08/31 hand surgery s/p i&D yetserday-plan for possible surgery on 09/12 surgery following ESRD on HD with hyperkalemia HD MWF, given loklema ,hold losartan ,low potassium/phos diet potassium improving from 6.3 -5.8 ,will give another dose of loklemia moniter bmp closely nephrology following HTN Acceptable control on current therapies adjust as indicated DM2 No further hypoglycemia. Control ok lispro correctional scale... Adjust as indicated DVT PPx SC heparin In my clinical judgment, the patient requires continued inpatient hospitalization for the following reasons: IV ABX, surgical management Quality Stroke Does the patient have a stroke diagnosis?: No VTE Prior VTE?: No VTE Risk Level:: Medical - moderate - high VTE Device Contraindication: Treatment Not Indicated VTE Drug Contraindication: N/A - Med Ordered
[2024-09-11 15:29] VITALS: BP 122/69; PULSE 65; RESP 16; TEMP 36.8; O2SAT 93
[2024-09-11] MEDS: Aspirin Enteric Coated 81 MG TABLET.DR PO (15:50)
[2024-09-11 16:16] LABS: Glucose, Whole Blood 333 mg/dL (60-115)
--- NOTE | 2024-09-11 16:46 | HO.WOUND ---
Wound Consult: Follow up 69yr old?[place] [facility] [place] See progress notes and H&P for detailed history.? Wound consult folow up for calf and Right AKA.? Finger are followed and managed by Ortho Surgery Team - defer topical orders to them for right hand / fingers. Patient agreeable to assessment and photo documentation.? New topical recommendations made below. Right 2nd and 3rd Fingers Etiology: Arterial Wounds??Present on Admission Defer to Orthopedic Surgery Team Left Great Toe Etiology: Arterial Wounds vs Diabetic wound??Present on Admission Wound Bed: worsening dried mummified gangrene Drainage / Odor: no drainage mal odor noted Edges: ? dried and stable Erin wound: ?mild erythema noted - No Induration, Fluctuance or Warmth noted Pain: denies pain Goals of Treatment: ? [place] with Betadine Prior assessment 09/11/24 Right AKA Etiology: Healing Diabetic wound ??Present on Admission Wound Bed: Resurfacing dry tissue noted - almost full resurfaced Drainage / Odor: None Edges: irregular and attached Erin wound: ?intact No Induration, Fluctuance or Warmth noted Pain: denies pain Goals of Treatment: ? [place] with Betadine and dry dressing Left Posterior Calf Etiology: Diabetic Wound??Present on Admission Wound Bed: moist necrotic loosely attached tissue Drainage / Odor: mal odor noted huang drainage Edges: ? irregular and hyperpigmented Erin wound: FLuctuance under eschar noted - No Induration or Warmth noted Pain: reports pain Goals of Treatment: ? Wet to dry dressing TT to provider to order Rosa - Dr. Reid Recommendations: 1. Turn and Reposition every 2 hours and as needed for patient comfort.? Use pillows or wedges to support off loading positions. 2. Off Load all bony prominences with use of pillows and heel boots if needed.? Apply Preventative foams where needed. ? 3. Monitor for incontinence and moisture control, use barrier creams when needed for prevention and treatment. 4. Provide adequate and supplemental nutrition.? 5. Continue low air loss mattress. 6. When applicable maintain blood glucose levels per Providers order. Left Posterior Calf - Cleanse with normal saline, pat dry. ?Apply barrier to the immediate erin wound, apply thick layer of Santyl to entire wound bed, cover with saline moist gauze, cover with dry gauze, ABD pad and gauze wrap, change Daily. Right AKA site - Cleanse with NS pat dry. Apply skin prep cover wound bed with dry gauze dressing. change every 3 days. Left Great Toe - [place] with Betadine allow to dry. May leave JARROD- if drainage occurs cover with dry gauze. [place] Daily. Right Fingers Defer to Surgery team for topical orders. Re-consult wound care Nurse for wound deterioration or wound changes.
--- NOTE | 2024-09-11 17:05 | MHC.SL.SWA ---
Risk of Aspiration Due to: varying cognitive status Dysphasia Diet Status:no change Liquid Consistency and Strategies for Safe Swallow: Liquid Intake Recommendation: Thin Solid Food Consistency: Dietary Recommendations: Regular Oral Medication Intake: Whole with Liquid Please contact the pharmacy regarding appropriate crushable or liquid drug formulations that are available whenever modified delivery is recommended. Compensatory Strategies and Precautions to be Taken for Safe Swallow: Sitting Upright (90 deg) Small Bites and Sips Alternate Liquids/Solids Oral Check Supervision While Eating and Drinking for Safe Swallow: Total Assistance (1:1) Recommendation for Speech: Inpatient Speech Therapy Comment: Recommend pt continue w/ regular solids, thin liquids, pills whole w/ liquid and 1-1 assistance feeding. Do not leave tray w/ pt w/o supervision d/t varying confusion and alertness. Message sent to fast food attendant supervisors and internet project manager regarding this. During times of increased confusion, consider crushing pills if possible to prevent pt from chewing pills. Do not feed pt if he is not alert and engaged with staff/PO. Expansion Joint Finisher Clinican/Clinical Fellow: No Supervisory Statement: I have reviewed and agree with the student/clinical fellow's documentation: N/A Speech Language Pathologist: Janae Seaman M.A., CCC-ROLL CLAMP OPERATOR
[2024-09-11 19:55] LABS: Glucose, Whole Blood 240 mg/dL (60-115)
[2024-09-11 20:00] VITALS: BP 122/60; PULSE 66; RESP 18; TEMP 37.2; O2SAT 92
[2024-09-11] MEDS: Insulin Glargine,Hum.rec.anlog 100 UNIT/ML 10 ML VIAL 10 UNIT SUBCUT (20:40)
[2024-09-11 23:24] VITALS: BP 128/60; PULSE 67; RESP 18; TEMP 37.3; O2SAT 93
[2024-09-12] VITALS (12 sets, daily range): BP systolic 127–180; BP diastolic 63–90; PULSE 57–67; RESP 14–18; TEMP 36.3–36.8; O2SAT 92–100
[2024-09-12 07:24] LABS: Glucose, Whole Blood 138 mg/dL (60-115)
[2024-09-12] MEDS: 0.9 % Sodium Chloride Flush 3 ML SYRINGE IVFLUSH ×3 (08:12→21:33)
--- NOTE | 2024-09-12 08:27 | PC.NURSE ---
Attempted morning med pass, pt too lethargic to swallow pills. Morning meds held at this time.
[2024-09-12 09:35] LABS: Hematocrit 36.3 % (42.0-52.0); Hemoglobin 11.3 g/dl (14.0-18.0); Mean Corpuscular HGB Conc 31.1 g/dl (31.0-36.0); Mean Corpuscular Hemoglobin 22.7 pg (27.0-33.0); Mean Corpuscular Volume 72.9 fL (80.0-98.0); NRBC Abs Auto 0.000 X10*3/uL (0.0-0.012); NRBC Pct Auto 0.0 /100WBC (0.0-0.2); Platelet Count 252 X10*3/uL (160-400); Red Blood Count 4.98 X10*6/uL (4.60-5.80); White Blood Count 14.5 X10*3/uL (4.8-10.8)
[2024-09-12 09:44] LABS: Anion Gap 20 (12-20); Blood Urea Nitrogen 49 mg/dL (9-16); Calcium 9.3 mg/dL (8.4-10.2); Carbon Dioxide 25 mmol/L (22-29); Chloride 97 mmol/L (96-108); Creatinine Clr Calc Pharmacy 9.9; Estimated Glomerular Filt Rate 9; Potassium 4.4 mmol/L (3.3-5.1); Sodium 138 mmol/L (135-145)
--- NOTE | 2024-09-12 11:28 | MHC.SLORD ---
Speech Language Pathology Order Status: Patient NPO today (09/12/24) for surgery, not seen by FABRICATING MACHINE OPERATOR on this date.
[2024-09-12 11:32] LABS: Glucose, Whole Blood 119 mg/dL (60-115)
--- NOTE | 2024-09-12 12:12 | P.OP_ITS ---
Operative Note Operative Note Date of Service: 09/12/24 Narrative: Operative Note Narrative: Preop diagnosis: 1. Left hand necrosis secondary to severe peripheral vascular disease 2. Left hand infection Postop diagnosis: Same Procedure: 1. Left hand ray amputation index finger 2. Left hand ray amputation ring finger 3. Left hand ray amputation small finger 4. . I and D left hand, deep mid palmar space infection Surgeon: Beatriz Rosales MD Cardiopulmonary Supervisor: Bala MONTERO Anesthesia: Regional block plus sedation Findings: Lindsey purulent fluid found within middle finger flexor tendon sheath extending deep to the mid palmar deep space of the hand Most vessels in the palm were calcified. Some small amount of bleeding noted at the edge of all tissues, at the palmar digital crease level of the index and small finger levels and closer to the distal mid palmar crease level for the middle and ring finger levels. Implants: None Tourniquet time: 0 minutes EBL: 5.0 ml Specimen: Cultures taken, x2 of the deep mid palmar space purulence Drains: Iodoform gauze strip x1 Complications: None Disposition: Brought to the recovery room in stable condition Plan: Admit back to floor to continue IV antibiotics. Check cultures and adjust antibiotics accordingly Wound check and dressing change with ortho in 1-2 days Return to the OR in 2 days on Monday at 09:00 for repeat I and D, possible wound closure Indications: The patient is a 69 year old man with with diabetes and severe peripheral vascular disease who was status post multiple procedures to the right hand including amputation of the index finger through the proximal phalanx, and amputation as a ray resection of the middle phalanx. Unfortunately, he has had further necrosis of the index digit, tissues about the 3rd metacarpal, and the ring finger is now necrotic. The patient and family adamantly request that the small finger also be amputated at this time in hopes of avoiding additional procedures for what they feel is inevitable. . The risks and benefits of operative treatment, including but not limited to risk of damage to blood vessels, nerves, tendons, infection, recurrence, persistent pain or numbness, incomplete resolution of preoperative symptoms, or need for further surgery were discussed with the patient and they wished to proceed with surgery. Procedure: Once consent was obtained patient was brought back to the operating suite and placed in the operating table in a supine position. A regional block was performed by the anesthesia team. Anesthesia was administered by the anesthesia team. A tourniquet was applied to the proximal aspect of the right upper extremity and the limb was prepped and draped in a standard surgical fashion. The tourniquet was not inflated during the case. I made a fishmouth type incision starting at the radial aspect of the hand and 2nd MCP joint. I then extended the incision dorsally and somewhat proximally at the 3rd metacarpal to remove necrotic tissue in this area. This extended ulnarly across the 4th and 5th MCP joints with a fish mouth incision on the ulnar border of the hand. I then continued this palmarly across the palmar digital crease of the small finger and then taking out some of the more proximal necrotic tissues at about the distal mid palmar crease level for the ring and middle fingers extending slightly distally to the palmar digital crease of the index finger completing the fish mouth incision on the radial aspect of the hand. These incisions were made using a 15. And a 10. Blade. The incision was made down to bone. Beginning on the radial side of the hand the index finger was 1st disarticulated at the MCP joint and the remnant of the index finger proximal phalanx was removed with the soft tissues. The nonviable tissues were removed from the palmar and dorsal aspect of the middle finger where the metacarpal head had been previously. The ring finger and then the small finger were both disarticulated at the MCP joints and both the index finger and small finger were removed with these tissues and placed on the back table. Please note that the radial half of the ring finger was noted to have increased necrosis. My attention was then turned to the 2nd metacarpal head. Once freeing the 2nd metacarpal neck of soft tissue I used a bone saw to make a transverse cut in the 2nd metacarpal neck removing the 2nd metacarpal head. Similarly I removed the 4th and 5th metacarpal heads using a bone saw. These were all roughly in line with the previously amputated 3rd metacarpal head. We did have bleeding, though perhaps only a small amount, at the distal edges of all remaining tissues. Please note that the vessels were palpably calcified. I observed a small amount of purulence just volar to the 3rd metacarpal head. I explored this and found the FDP and FDS tendons had withdrawn. I pulled these tendons out to length and found a copious amount of lindsey purulent fluid that extended deep into the palm and the mid palmar space. The mid palmar space was copiously irrigated with normal saline. Both the FDP and FDS tendons were pulled out to length and transected. The wound including the opening to the mid palmar space were copiously irrigated with normal saline at this point. Bleeding was controlled with a brief period of pressure and some bipolar electrocautery. I placed a single looped piece of half-inch iodoform gauze deep into the palmar space to facilitate drainage. The skin edges were then loosely reapproximated allowing for drainage primarily in the area of the distal 3rd metacarpal. Sterile dressing was then carefully and loosely applied with care being taken not to allow any constriction of the hand or the thumb. The patient appears to have tolerated the procedure well and with no complications.
--- NOTE | 2024-09-12 12:12 | MHC.SHP ---
Pre-Procedural Eval Section A - 24 Hr Update-Section A only Date of Service: 09/12/24 The patient is an INPATIENT: No Changes since office visit: No Cold of Flu in the past 2 weeks, No New Medical Problems, No Changes in Medication and No Patient answered all questions The patient has been examined within 24 hours of the surgical procedure. The History & Physical has been completed within 30 days and I have reviewed it.: Yes Section B - Complete if H&P > 30 days Chief Complaint: Right hand necrosis and infection Allergies: Allergies Allergy/AdvReac Type Severity Reaction Status Date / Time Iodinated Contrast Media Allergy Severe Facial Verified 08/22/24 11:22 (Contrast Dye) Swelling hydralazine AdvReac Severe vasculitis Verified 08/22/24 11:22 Plan Diagnosis/Plan: Unchanged I have reviewed the history and physical and performed a pertinent physical examination on my patient. No changes have occurred unless specified. Time Spent With Patient Time: Total time managing care of this patient today ____ minutes.
--- NOTE | 2024-09-12 13:03 | PM.CNGS ---
History of Present Illness Consult details Consult date: 09/12/24 Reason for consult: wound care Narrative: Complex 69-year-old diabetic gentleman well known to me. Prior history of significant peripheral vascular disease. He end-stage renal disease on dialysis through a PermCath via the right internal jugular. He has undergone previous right lower extremity amputations by me and subsequently underwent an AKA. That did take a significant time to heal. At the current time he is undergoing treatment of the right upper extremity. Slow to heal and he is undergone amputations and recurrent debridements regarding this. We were called back in to re-evaluate the left lower extremity. Review of Systems Review of Systems: Yes all other systems are reviewed and are negative Constitutional: Constitutional: Reports no additional constitutional complaints ENT: Reports Normal hearing present Cardiovascular: Cardiovascular: Denies chest pain, Denies chest pain at rest, Denies chest pain with activity and Denies pedal edema Respiratory: Respiratory: Denies cough Gastrointestinal: Gastrointestinal: Denies abdominal pain Musculoskeletal: Musculoskeletal: Denies abnormal gait, Denies muscle cramps and Denies radiating pain into limb Integumentary/Breasts: Skin/Breast: Denies skin ulcer and Denies wounds Neurologic: Reports Normal hearing present and Denies abnormal gait Psychiatric: Psychiatric: Reports no additional psychiatric complaints PMFSH Past Medical History Medical History Above knee amputation of right lower extremity Left ventricular systolic dysfunction (LVSD) PVD (peripheral vascular disease) Postop check Acute pericardial effusion Right sided weakness Dehiscence of wound Peripheral arterial disease Dry gangrene Cellulitis of right foot HFrEF (heart failure with reduced ejection fraction) Chronic combined systolic and diastolic CHF (congestive heart failure) Chronic pericardial effusion Arthritis Asthma Restless leg syndrome Acute on chronic systolic and diastolic heart failure, NYHA class 3 Anemia Occlusive thrombus Pulmonary edema ROBERT (obstructive sleep apnea) Type 2 diabetes mellitus Hyperlipidemia Hypertension A-V fistula ESRD on dialysis Falling Family History Family History Father No problems noted. Mother No problems noted. Surgical History Surgical History Status post creation of pericardial window Hx of right BKA History of transmetatarsal amputation of foot Status post transmetatarsal amputation of right foot Postop check History of surgery H/O colonoscopy Recurrent pleural effusion Pleural effusion on right (07/13/23) Social History Social History Household Members: Family Household Members Other:: son Housing: House Are you a primary medicare sales representative to a significant other at home: No Do you presently have visiting nurse or other home services: No Unable to assess alcohol history related to: Unknown Alcohol intake: former Comment: 1:1 sitter for SI Patient Tobacco Use Status: Former Tobacco user Tobacco use type: Cigarette Second Hand Smoke Exposure: No Advance Directives Date on File: 10/04/23 service: No Current occupational status: disabled 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 Meds Allergies Allergy/AdvReac Type Severity Reaction Status Date / Time Iodinated Contrast Media Allergy Severe Facial Verified 08/22/24 11:22 (Contrast Dye) Swelling hydralazine AdvReac Severe vasculitis Verified 08/22/24 11:22 Active Medications: Current Medications Acetaminophen (Acetaminophen 325 Mg Tablet) 650 mg PO Q6H PRN PRN Reason: Pain, Mild 1-3,fever,headache Last Admin: 09/12/24 03:34 Dose: 650 mg Albuterol Sulfate (Albuterol Sulfate 90 Mcg 8 Gm Inhaler) 2 puff INHALE Q4H PRN PRN Reason: Wheezing Allopurinol (Allopurinol 100 Mg Tablet) 100 mg PO MOWEFR@1600 [facility] Last Admin: 09/11/24 15:51 Dose: 100 mg Amlodipine Besylate (Amlodipine Besylate 10 Mg Tablet) 10 mg PO DAILY [facility]; Protocol Last Admin: 09/12/24 08:13 Dose: Not Given Aspirin (Aspirin Enteric Coated 81 Mg Tablet.) 81 mg PO MOWEFR@1600 [facility] Last Admin: 09/11/24 15:50 Dose: 81 mg Aspirin (Aspirin Enteric Coated 81 Mg Tablet.) 81 mg PO SUTUTHSA@0900 [facility] Last Admin: 09/12/24 08:13 Dose: Not Given Atorvastatin Calcium (Atorvastatin Calcium 40 Mg Tablet) 40 mg PO MOWEFR@1600 [facility] Last Admin: 09/11/24 15:51 Dose: 40 mg Atorvastatin Calcium (Atorvastatin Calcium 40 Mg Tablet) 40 mg PO SUTUTHSA@0900 [facility] Last Admin: 09/12/24 08:13 Dose: Not Given Calcium Carbonate (Calcium Carbonate 750 Mg Tab.Chew) 750 mg PO Q4H PRN PRN Reason: Heartburn Carvedilol (Carvedilol 25 Mg Tablet) 25 mg PO BID [facility]; Protocol Last Admin: 09/12/24 08:14 Dose: Not Given Dextrose (Dextrose 50 % 25 Gm/50 Ml Syringe) 25 gm IVPUSH Q15M PRN; Protocol PRN Reason: per Hypoglycemia Standing Ord. Last Admin: 08/27/24 07:59 Dose: 25 gm Docusate Sodium (Docusate Sodium 100 Mg Capsule) 100 mg PO DAILY [facility] Last Admin: 09/12/24 08:14 Dose: Not Given Doxazosin Mesylate (Doxazosin Mesylate 2 Mg Tablet) 4 mg PO BEDTIME [facility]; Protocol Last Admin: 09/11/24 20:40 Dose: 4 mg Fluticasone/Umeclidinium/Vilanterol (Fluticasone/Umeclidinium/Vilanterol 100/62.5/25 Blst.W.Dev) 1 puff INHALE RDAILY [facility] Last Admin: 09/12/24 08:16 Dose: Not Given Furosemide (Furosemide 40 Mg Tablet) 80 mg PO MOWEFR@1600 [facility]; Protocol Last Admin: 09/11/24 15:51 Dose: 80 mg Furosemide (Furosemide 40 Mg Tablet) 80 mg PO SUTUTHSA@0900 [facility]; Protocol Last Admin: 09/12/24 08:14 Dose: Not Given Glucose (Glucose Gel 15 Gm Gel..Gram.) 15 gm PO Q15M PRN PRN Reason: per Hypoglycemia Standing Ord. Last Admin: 08/25/24 04:50 Dose: 15 gm Heparin Sodium (Porcine) (Heparin Sodium,Porcine 5,000 Unit/Ml Vial) 5,000 unit SUBCUT Q12H [facility] Last Admin: 09/12/24 08:15 Dose: Not Given Hydrocortisone (Hydrocortisone 1 % Ointment 28.35 Gm Tube) 1 appl TOPICAL BID PRN; Protocol PRN Reason: itching Vancomycin HCl 500 mg/ Sodium (Chloride) 110 mls @ 110 mls/hr IV ONCE ONE Stop: 08/23/24 20:59 Cefepime HCl 1 gm/ Sodium (Chloride) 50 mls @ 100 mls/hr IV Q24H [facility] Last Infusion: 09/11/24 17:21 Dose: Infused Insulin Glargine (Insulin Glargine,Hum.Rec.Anlog 100 Unit/Ml 10 Ml Vial) 10 unit SUBCUT BEDTIME [facility] Last Admin: 09/11/24 20:40 Dose: 10 unit Insulin Human Lispro (Insulin Lispro 100 Unit/Ml 3 Ml Vial) 0 unit SUBCUT QIDACHS [facility]; Protocol Last Admin: 09/12/24 11:50 Dose: Not Given Levetiracetam (Levetiracetam 1,000 Mg Tablet) 1,000 mg PO BID [facility] Last Admin: 09/12/24 08:14 Dose: Not Given Losartan Potassium (Losartan Potassium 50 Mg Tablet) 50 mg PO SUTUTHSA@0900 [facility]; Protocol On Hold: 09/10/24 18:15 Last Admin: 09/10/24 08:22 Dose: 50 mg Losartan Potassium (Losartan Potassium 50 Mg Tablet) 50 mg PO MOWEFR@1600 [facility]; Protocol On Hold: 09/10/24 18:15 Last Admin: 09/09/24 18:11 Dose: Not Given Magnesium Hydroxide (Milk Of Magnesia 30 Ml Oral.Susp) 30 ml PO DAILY PRN PRN Reason: Constipation Last Admin: 09/06/24 17:00 Dose: 30 ml Melatonin (Melatonin 3 Mg Tablet) 6 mg PO BEDTIME PRN PRN Reason: Insomnia Last Admin: 09/04/24 19:29 Dose: 6 mg Naloxone HCl (Naloxone Hcl 0.4 Mg/Ml Vial) 0.04 mg IVPUSH Q5M PRN PRN Reason: Excessive sedation or RR < 8 Omeprazole (Omeprazole 20 Mg Capsule.Dr) 20 mg PO DAILY@0630 [facility] Last Admin: 09/12/24 05:35 Dose: 20 mg Ondansetron HCl (Ondansetron Hcl 4 Mg/2 Ml Vial) 4 mg IVPUSH Q8H PRN PRN Reason: Nausea and Vomiting Pharmacy Consult (Consult Rx Vancomycin Dosing) 1 each MISCELLANE DAILY PRN PRN Reason: Consult order Pregabalin (Pregabalin 75 Mg Capsule) 75 mg PO DAILY [facility] Last Admin: 09/12/24 08:14 Dose: Not Given Sevelamer Carbonate (Sevelamer Carbonate Tablet 800 Mg Tablet) 800 mg PO TIDWM [facility] Last Admin: 09/12/24 11:55 Dose: Not Given Sodium Chloride (0.9 % Sodium Chloride Flush 3 Ml Syringe) 3 ml IVFLUSH QSHIFT [facility] Last Admin: 09/12/24 08:12 Dose: 3 ml Home Medications ?Medication ?Instructions ?Recorded ?Confirmed ?Last Taken ?Type allopurinol 100 mg tablet 100 mg PO MOWEFR@1600 04/19/22 08/22/24 08/21/24 History atorvastatin 40 mg tablet 40 mg PO SUTUTHSA@0900 04/19/22 08/22/24 08/21/24 History doxazosin 4 mg tablet 4 mg PO BEDTIME 04/19/22 08/22/24 08/21/24 History furosemide 80 mg tablet 80 mg PO SUTUTHSA@0900 04/19/22 08/22/24 08/21/24 History omeprazole 20 mg capsule,delayed 20 mg PO DAILY@62904/19/22 08/22/24 08/21/24 History release aspirin 81 mg tablet,delayed 81 mg PO SUTUTHSA@0900 06/20/23 08/22/24 08/21/24 History release pregabalin 75 mg capsule 75 mg PO DAILY 06/20/23 08/22/24 08/21/24 History aspirin 81 mg tablet,delayed 81 mg PO MOWEFR@159904/05/24 08/22/24 08/21/24 History release atorvastatin 40 mg tablet 40 mg PO MOWEFR@159904/05/24 08/22/24 08/21/24 History fluticasone fur. 100 mcg-umeclid 1 inh inhalation DAILY 04/05/24 08/22/24 08/21/24 History 62.5 mcg-vilant 25 mcg inhalat.powder (Trelegy Ellipta) furosemide 80 mg tablet 80 mg PO MOWEFR@159904/05/24 08/22/24 08/21/24 History losartan 25 mg tablet 25 mg PO MOWEFR@159904/05/24 08/22/24 08/21/24 History losartan 25 mg tablet 25 mg PO SUTUTHSA@0900 04/05/24 08/22/24 08/21/24 History insulin glargine 100 unit/mL (3 22 unit subcut BEDTIME 05/01/24 08/22/24 08/21/24 History mL) subcutaneous pen (Lantus Solostar U-100 Insulin) acetaminophen 500 mg tablet 1,000 mg PO Q8H PRN Pain 05/26/24 08/22/24 Unknown History amlodipine 10 mg tablet 10 mg PO DAILY 05/26/24 08/22/24 08/21/24 History calcium carbonate (Calcium 500) 500 mg PO TID 05/26/24 08/22/24 08/21/24 History docusate sodium 100 mg capsule 100 mg PO DAILY 05/26/24 08/22/24 08/21/24 History insulin lispro 100 unit/mL See Rx Instructions .Route .COMPLEX 05/26/24 08/22/24 08/21/24 History subcutaneous solution (Humalog U-100 Insulin) albuterol sulfate 90 mcg/actuation 2 puff inhalation Q4H PRN wheezing 08/22/24 08/22/24 Unknown History aerosol inhaler (Ventolin HFA) carvedilol 6.25 mg tablet 6.25 mg PO BID 08/22/24 08/22/24 Unknown History ipratropium 0.5 mg-albuterol 3 mg 3 ml inhalation QID PRN Shortness 08/22/24 08/22/24 08/21/24 History (2.5 mg base)/3 mL nebulization Of Breath soln sucroferric oxyhydroxide 500 mg 500 mg PO TID 08/22/24 08/22/24 08/21/24 History chewable tablet (Velphoro) Physical Exam Vital Signs: Vital Signs: Last Vital Signs Temp 97.9 F 09/12/24 12:00 Pulse 60 09/12/24 12:00 Resp 18 09/12/24 12:00 BP 147/90 H 09/12/24 12:00 Pulse Ox 92 09/12/24 12:00 O2 Del Method Room Air 09/12/24 12:00 O2 Flow Rate 2 09/04/24 03:34 BMI result Body Mass Index 27.3 Const: General: cooperative, healthy appearing and comfortable Orientation/consciousness: oriented to person, oriented to place and oriented to time HEENT: Head: Yes normal to inspection Neck: Neck: Yes normal visual inspection Carotids: no bruits Chest: Chest palpation & inspection: normal inspection of the chest Resp: Effort & Inspection: normal respiratory effort and able to speak in complete sentences Auscultation: clear to auscultation bilaterally, no crackles, no rales, no rhonchi and no wheezes Cardio: Rate: regular rate Rhythm: regular rhythm Heart sounds: S1 normal heart sound present and S2 normal heart sound present Bruits: no carotid bruits Peripheral pulses: Peripheral pulses 2+ throughout GI: Inspection: Yes normal to inspection Skin: Other: Right AKA well healed Left lower extremity dry gangrene of digits 2,3,4 Wounds: amputation site and wounds noted Hair: normal Neuro: General: oriented to person, oriented to place and oriented to time Cranial nerves: Yes CN's II-XII intact bilaterally and Yes Normal hearing present Cognition (Neuro): normal cognition Motor exam (neuro): 5/5 motor strength present throughout Extrem: Other: venous exam: No significant superficial varicosities or spider telangiectasias, minimal edema General: No clubbing, No cyanosis and No edema Psych: Appearance: grossly normal Mental Status: mental status grossly normal Speech and movement: Normal speech and movement present Results Labs 09/12/24 08:34 09/12/24 08:34 Labs: Abnormal lab results 09/11/24 09/11/24 09/11/24 Range/Units 16:12 18:07 19:51 WBC (4.8-10.8) X10*3/uL Hgb (14.0-18.0) g/dl Hct (42.0-52.0) % MCV (80.0-98.0) fL MCH (27.0-33.0) pg RDW (11.0-16.0) % BUN (9-16) mg/dL Creatinine (0.5-1.4) mg/dL POC Glucose 333 H 240 H (60-115) mg/dL Random Glucose (60-115) mg/dL Random Vancomycin 13.3 L (15-20) mcg/mL 09/12/24 09/12/24 09/12/24 Range/Units 07:14 08:34 11:28 WBC 14.5 H (4.8-10.8) X10*3/uL Hgb 11.3 L (14.0-18.0) g/dl Hct 36.3 L (42.0-52.0) % MCV 72.9 L (80.0-98.0) fL MCH 22.7 L (27.0-33.0) pg RDW 18.7 H (11.0-16.0) % BUN 49 H (9-16) mg/dL Creatinine 6.49 H* (0.5-1.4) mg/dL POC Glucose 138 H 119 H (60-115) mg/dL Random Glucose 117 H (60-115) mg/dL Random Vancomycin (15-20) mcg/mL Short CBC 09/12/24 Range/Units 08:34 WBC 14.5 H (4.8-10.8) X10*3/uL Hgb 11.3 L (14.0-18.0) g/dl Hct 36.3 L (42.0-52.0) % Plt Count 252 (160-400) X10*3/uL BMP 09/12/24 08:34 Sodium 138 Potassium 4.4 Chloride 97 Carbon Dioxide 25 BUN 49 H Creatinine 6.49 H* Calcium 9.3 All other labs normal. Assessment and Plan (1) PVD (peripheral vascular disease): Status: Acute Plan At the current time left lower extremity appears to be stable. It is dry gangrene. I would like the hand to be taken care of an resolved prior to consideration of any sort of intervention on the left lower extremity. My fear is that as we intervene we will have a similar situation as the right and may eventually end up with an above-knee amputation. At the current time no signs of infection appears to be dry gangrene. Continued medical workup and care of the right upper extremity per Orthopedics. We will follow on an as-needed basis. Procedures Date of Service Date of Service: 09/12/24
--- NOTE | 2024-09-12 13:06 | HO.ANESPROP2 ---
HPI - Anesthesia Eval Consult details Narrative: For I&D/amputation revision, right hand Anesthesia Pre-Procedure Meds If yes to any meds - educate patient: Pt education - increased risk of aspiration and/or euvolemic DKA PMFSH Active Problems Active Problems: All Active Problems Status post amputation of finger of right hand (Acute) 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 (Acute) Encephalopathy (Acute) Necrosis of finger (Acute) Numbness and tingling in right hand (Acute) AKA stump complication (Acute) Cellulitis (Acute) ESRD needing dialysis (Acute) Infection of toe (Acute) Pleural effusion (Acute) Acute hypokalemia (Acute) Osteomyelitis (Acute) Somatization disorder (Acute) Trapped lung (Acute) Recurrent pleural effusion on right (Chronic) Exudative pleural effusion (Acute) Hyponatremia (Acute) Hyperkalemia (Acute) Type 2 diabetes mellitus (Acute) Dry gangrene (Acute) PVD (peripheral vascular disease) (Acute) Postop check (Acute) Acute on chronic systolic and diastolic heart failure, NYHA class 3 (Chronic) Past Medical History Medical History Above knee amputation of right lower extremity Left ventricular systolic dysfunction (LVSD) PVD (peripheral vascular disease) Postop check Acute pericardial effusion Right sided weakness Dehiscence of wound Peripheral arterial disease Dry gangrene Cellulitis of right foot HFrEF (heart failure with reduced ejection fraction) Chronic combined systolic and diastolic CHF (congestive heart failure) Chronic pericardial effusion Arthritis Asthma Restless leg syndrome Acute on chronic systolic and diastolic heart failure, NYHA class 3 Anemia Occlusive thrombus Pulmonary edema ROBERT (obstructive sleep apnea) Type 2 diabetes mellitus Hyperlipidemia Hypertension A-V fistula ESRD on dialysis Falling Family History Family History Father No problems noted. Mother No problems noted. Family history of problems with anesthesia: No Surgical History Surgical History Status post creation of pericardial window Hx of right BKA History of transmetatarsal amputation of foot Status post transmetatarsal amputation of right foot Postop check History of surgery H/O colonoscopy Recurrent pleural effusion Pleural effusion on right (07/13/23) History of Problems with Anesthesia: No Social History Social History Household Members: Family Household Members Other:: son Housing: House Are you a primary children's zoo caretaker to a significant other at home: No Do you presently have visiting nurse or other home services: No Unable to assess alcohol history related to: Unknown Alcohol intake: former Comment: 1:1 sitter for SI Patient Tobacco Use Status: Former Tobacco user Tobacco use type: Cigarette Second Hand Smoke Exposure: No Advance Directives Date on File: 10/04/23 service: No Current occupational status: disabled 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 Meds Allergies Allergy/AdvReac Type Severity Reaction Status Date / Time Iodinated Contrast Media Allergy Severe Facial Verified 08/22/24 11:22 (Contrast Dye) Swelling hydralazine AdvReac Severe vasculitis Verified 08/22/24 11:22 Active Medications: Current Medications Acetaminophen (Acetaminophen 325 Mg Tablet) 650 mg PO Q6H PRN PRN Reason: Pain, Mild 1-3,fever,headache Last Admin: 09/12/24 03:34 Dose: 650 mg Albuterol Sulfate (Albuterol Sulfate 90 Mcg 8 Gm Inhaler) 2 puff INHALE Q4H PRN PRN Reason: Wheezing Allopurinol (Allopurinol 100 Mg Tablet) 100 mg PO MOWEFR@1600 [facility] Last Admin: 09/11/24 15:51 Dose: 100 mg Amlodipine Besylate (Amlodipine Besylate 10 Mg Tablet) 10 mg PO DAILY [facility]; Protocol Last Admin: 09/12/24 08:13 Dose: Not Given Aspirin (Aspirin Enteric Coated 81 Mg Tablet.) 81 mg PO MOWEFR@1600 [facility] Last Admin: 09/11/24 15:50 Dose: 81 mg Aspirin (Aspirin Enteric Coated 81 Mg Tablet.) 81 mg PO SUTUTHSA@0900 [facility] Last Admin: 09/12/24 08:13 Dose: Not Given Atorvastatin Calcium (Atorvastatin Calcium 40 Mg Tablet) 40 mg PO MOWEFR@1600 [facility] Last Admin: 09/11/24 15:51 Dose: 40 mg Atorvastatin Calcium (Atorvastatin Calcium 40 Mg Tablet) 40 mg PO SUTUTHSA@0900 [facility] Last Admin: 09/12/24 08:13 Dose: Not Given Calcium Carbonate (Calcium Carbonate 750 Mg Tab.Chew) 750 mg PO Q4H PRN PRN Reason: Heartburn Carvedilol (Carvedilol 25 Mg Tablet) 25 mg PO BID [facility]; Protocol Last Admin: 09/12/24 08:14 Dose: Not Given Dextrose (Dextrose 50 % 25 Gm/50 Ml Syringe) 25 gm IVPUSH Q15M PRN; Protocol PRN Reason: per Hypoglycemia Standing Ord. Last Admin: 08/27/24 07:59 Dose: 25 gm Docusate Sodium (Docusate Sodium 100 Mg Capsule) 100 mg PO DAILY [facility] Last Admin: 09/12/24 08:14 Dose: Not Given Doxazosin Mesylate (Doxazosin Mesylate 2 Mg Tablet) 4 mg PO BEDTIME [facility]; Protocol Last Admin: 09/11/24 20:40 Dose: 4 mg Fluticasone/Umeclidinium/Vilanterol (Fluticasone/Umeclidinium/Vilanterol 100/62.5/25 Blst.W.Dev) 1 puff INHALE RDAILY [facility] Last Admin: 09/12/24 08:16 Dose: Not Given Furosemide (Furosemide 40 Mg Tablet) 80 mg PO MOWEFR@1600 [facility]; Protocol Last Admin: 09/11/24 15:51 Dose: 80 mg Furosemide (Furosemide 40 Mg Tablet) 80 mg PO SUTUTHSA@0900 [facility]; Protocol Last Admin: 09/12/24 08:14 Dose: Not Given Glucose (Glucose Gel 15 Gm Gel..Gram.) 15 gm PO Q15M PRN PRN Reason: per Hypoglycemia Standing Ord. Last Admin: 08/25/24 04:50 Dose: 15 gm Heparin Sodium (Porcine) (Heparin Sodium,Porcine 5,000 Unit/Ml Vial) 5,000 unit SUBCUT Q12H [facility] Last Admin: 09/12/24 08:15 Dose: Not Given Hydrocortisone (Hydrocortisone 1 % Ointment 28.35 Gm Tube) 1 appl TOPICAL BID PRN; Protocol PRN Reason: itching Vancomycin HCl 500 mg/ Sodium (Chloride) 110 mls @ 110 mls/hr IV ONCE ONE Stop: 08/23/24 20:59 Cefepime HCl 1 gm/ Sodium (Chloride) 50 mls @ 100 mls/hr IV Q24H [facility] Last Infusion: 09/11/24 17:21 Dose: Infused Insulin Glargine (Insulin Glargine,Hum.Rec.Anlog 100 Unit/Ml 10 Ml Vial) 10 unit SUBCUT BEDTIME [facility] Last Admin: 09/11/24 20:40 Dose: 10 unit Insulin Human Lispro (Insulin Lispro 100 Unit/Ml 3 Ml Vial) 0 unit SUBCUT QIDACHS [facility]; Protocol Last Admin: 09/12/24 11:50 Dose: Not Given Levetiracetam (Levetiracetam 1,000 Mg Tablet) 1,000 mg PO BID [facility] Last Admin: 09/12/24 08:14 Dose: Not Given Losartan Potassium (Losartan Potassium 50 Mg Tablet) 50 mg PO SUTUTHSA@0900 [facility]; Protocol On Hold: 09/10/24 18:15 Last Admin: 09/10/24 08:22 Dose: 50 mg Losartan Potassium (Losartan Potassium 50 Mg Tablet) 50 mg PO MOWEFR@1600 [facility]; Protocol On Hold: 09/10/24 18:15 Last Admin: 09/09/24 18:11 Dose: Not Given Magnesium Hydroxide (Milk Of Magnesia 30 Ml Oral.Susp) 30 ml PO DAILY PRN PRN Reason: Constipation Last Admin: 09/06/24 17:00 Dose: 30 ml Melatonin (Melatonin 3 Mg Tablet) 6 mg PO BEDTIME PRN PRN Reason: Insomnia Last Admin: 09/04/24 19:29 Dose: 6 mg Naloxone HCl (Naloxone Hcl 0.4 Mg/Ml Vial) 0.04 mg IVPUSH Q5M PRN PRN Reason: Excessive sedation or RR < 8 Omeprazole (Omeprazole 20 Mg Capsule.Dr) 20 mg PO DAILY@0630 [facility] Last Admin: 09/12/24 05:35 Dose: 20 mg Ondansetron HCl (Ondansetron Hcl 4 Mg/2 Ml Vial) 4 mg IVPUSH Q8H PRN PRN Reason: Nausea and Vomiting Pharmacy Consult (Consult Rx Vancomycin Dosing) 1 each MISCELLANE DAILY PRN PRN Reason: Consult order Pregabalin (Pregabalin 75 Mg Capsule) 75 mg PO DAILY [facility] Last Admin: 09/12/24 08:14 Dose: Not Given Sevelamer Carbonate (Sevelamer Carbonate Tablet 800 Mg Tablet) 800 mg PO TIDWM [facility] Last Admin: 09/12/24 11:55 Dose: Not Given Sodium Chloride (0.9 % Sodium Chloride Flush 3 Ml Syringe) [facility] Admin: 09/12/24 08:12 Dose: 3 ml Home Medications ?Medication ?Instructions ?Recorded ?Confirmed ?Last Taken ?Type allopurinol 100 mg tablet 100 mg PO MOWEFR@1600 04/19/22 08/22/24 08/21/24 History atorvastatin 40 mg tablet 40 mg PO SUTUTHSA@0900 04/19/22 08/22/24 08/21/24 History doxazosin 4 mg tablet 4 mg PO BEDTIME 04/19/22 08/22/24 08/21/24 History furosemide 80 mg tablet 80 mg PO SUTUTHSA@0900 04/19/22 08/22/24 08/21/24 History omeprazole 20 mg capsule,delayed 20 mg PO DAILY@0630 04/19/22 08/22/24 08/21/24 History release aspirin 81 mg tablet,delayed 81 mg PO SUTUTHSA@0900 06/20/23 08/22/24 08/21/24 History release pregabalin 75 mg capsule 75 mg PO DAILY 06/20/23 08/22/24 08/21/24 History aspirin 81 mg tablet,delayed 81 mg PO MOWEFR@159904/05/24 08/22/24 08/21/24 History release atorvastatin 40 mg tablet 40 mg PO MOWEFR@1600 04/05/24 08/22/24 08/21/24 History fluticasone fur. 100 mcg-umeclid 1 inh inhalation DAILY 04/05/24 08/22/24 08/21/24 History 62.5 mcg-vilant 25 mcg inhalat.powder (Trelegy Ellipta) furosemide 80 mg tablet 80 mg PO MOWEFR@159904/05/24 08/22/24 08/21/24 History losartan 25 mg tablet 25 mg PO MOWEFR@159904/05/24 08/22/24 08/21/24 History losartan 25 mg tablet 25 mg PO SUTUTHSA@0900 04/05/24 08/22/24 08/21/24 History insulin glargine 100 unit/mL (3 22 unit subcut BEDTIME 05/01/24 08/22/24 08/21/24 History mL) subcutaneous pen (Lantus Solostar U-100 Insulin) acetaminophen 500 mg tablet 1,000 mg PO Q8H PRN Pain 05/26/24 08/22/24 Unknown History amlodipine 10 mg tablet 10 mg PO DAILY 05/26/24 08/22/24 08/21/24 History calcium carbonate (Calcium 500) 500 mg PO TID 05/26/24 08/22/24 08/21/24 History docusate sodium 100 mg capsule 100 mg PO DAILY 05/26/24 08/22/24 08/21/24 History insulin lispro 100 unit/mL See Rx Instructions .Route .COMPLEX 05/26/24 08/22/24 08/21/24 History subcutaneous solution (Humalog U-100 Insulin) albuterol sulfate 90 mcg/actuation 2 puff inhalation Q4H PRN wheezing 08/22/24 08/22/24 Unknown History aerosol inhaler (Ventolin HFA) carvedilol 6.25 mg tablet 6.25 mg PO BID 08/22/24 08/22/24 Unknown History ipratropium 0.5 mg-albuterol 3 mg 3 ml inhalation QID PRN Shortness 08/22/24 08/22/24 08/21/24 History (2.5 mg base)/3 mL nebulization Of Breath soln sucroferric oxyhydroxide 500 mg 500 mg PO TID 08/22/24 08/22/24 08/21/24 History chewable tablet (Velphoro) Exam Height,Weight and Vital Signs: Height 5 ft 4 in Weight 72.2 kg Last Vital Signs Temp 97.9 F 09/12/24 12:00 Pulse 60 09/12/24 12:00 Resp 18 09/12/24 12:00 BP 147/90 H 09/12/24 12:00 Pulse Ox 92 09/12/24 12:00 O2 Del Method Room Air 09/12/24 12:00 O2 Flow Rate 2 09/04/24 03:34 Pertinent Lab Results Pertinent Lab Results: Laboratory Tests 08/22/24 08/22/24 08/22/24 11:41 14:20 16:08 WBC 16.3 H RBC 4.98 D Hgb 11.4 L Hct 37.1 L MCV 74.5 L MCH 22.9 L MCHC 30.7 L RDW 19.9 H Plt Count 194 MPV Not Reportable Immature Gran % (Auto) 0.4 Neut % (Auto) 86.4 H Lymph % (Auto) 7.[address] % (Auto) 5.5 Eos % (Auto) 0.3 Baso % (Auto) 0.2 Lymph # (Auto) 1.2 [place] # (Auto) 0.9 Eos # (Auto) 0.1 Baso # (Auto) 0.0 Abs Immat Gran (auto) 0.07 H Absolute Neuts (auto) 14.1 H Absolute Nucleated RBC 0.030 H Nucleated RBC % (auto) 0.2 ESR Hold Purple Top VBG pH VBG pCO2 VBG pO2 VBG HCO3 VBG O2 Saturation VBG Base Excess Sodium 137 Potassium 5.0 Chloride 96 Carbon Dioxide 27 Anion Gap 19 BUN 54 H Creatinine 6.03 H* Estim Creat Clear Calc 10.8 Estimated GFR 9 POC Glucose 381 H* Random Glucose 392 H* Lactic Acid 1.6 Calcium 8.6 Phosphorus Magnesium 1.6 Total Bilirubin 0.5 Direct Bilirubin AST 23 ALT 24 Alkaline Phosphatase 159 H Ammonia C-Reactive Protein 16.41 H Total Protein 7.1 Albumin 3.5 Random Vancomycin 08/22/24 08/22/24 08/22/24 17:11 18:49 21:05 WBC RBC Hgb Hct MCV MCH MCHC RDW Plt Count MPV Immature Gran % (Auto) Neut % (Auto) Lymph % (Auto) [place] % (Auto) Eos % (Auto) Baso % (Auto) Lymph # (Auto) [place] # (Auto) Eos # (Auto) Baso # (Auto) Abs Immat Gran (auto) Absolute Neuts (auto) Absolute Nucleated RBC Nucleated RBC % (auto) ESR Hold Purple Top VBG pH VBG pCO2 VBG pO2 VBG HCO3 VBG O2 Saturation VBG Base Excess Sodium Potassium Chloride Carbon Dioxide Anion Gap BUN Creatinine Estim Creat Clear Calc Estimated GFR POC Glucose 405 H* 179 H 82 Random Glucose Lactic Acid Calcium Phosphorus Magnesium Total Bilirubin Direct Bilirubin AST ALT Alkaline Phosphatase Ammonia C-Reactive Protein Total Protein Albumin Random Vancomycin 08/23/24 08/23/24 08/23/24 02:46 06:33 06:55 WBC 15.8 H RBC 4.77 Hgb 11.0 L Hct 35.1 L MCV 73.6 L MCH 23.1 L MCHC 31.3 RDW 19.4 H Plt Count 183 MPV Not Reportable Immature Gran % (Auto) Neut % (Auto) Lymph % (Auto) [place] % (Auto) Eos % (Auto) Baso % (Auto) Lymph # (Auto) [place] # (Auto) Eos # (Auto) Baso # (Auto) Abs Immat Gran (auto) Absolute Neuts (auto) Absolute Nucleated RBC 0.020 H Nucleated RBC % (auto) 0.1 ESR Hold Purple Top VBG pH VBG pCO2 VBG pO2 VBG HCO3 VBG O2 Saturation VBG Base Excess Sodium Potassium Chloride Carbon Dioxide Anion Gap BUN Creatinine Estim Creat Clear Calc Estimated GFR POC Glucose 184 H 192 H Random Glucose Lactic Acid Calcium Phosphorus Magnesium Total Bilirubin Direct Bilirubin AST ALT Alkaline Phosphatase Ammonia C-Reactive Protein Total Protein Albumin Random Vancomycin 08/23/24 08/23/24 08/23/24 10:48 11:49 16:05 WBC RBC Hgb Hct MCV MCH MCHC RDW Plt Count MPV Immature Gran % (Auto) Neut % (Auto) Lymph % (Auto) [place] % (Auto) Eos % (Auto) Baso % (Auto) Lymph # (Auto) [place] # (Auto) Eos # (Auto) Baso # (Auto) Abs Immat Gran (auto) Absolute Neuts (auto) Absolute Nucleated RBC Nucleated RBC % (auto) ESR Hold Purple Top VBG pH VBG pCO2 VBG pO2 VBG HCO3 VBG O2 Saturation VBG Base Excess Sodium 136 Potassium 5.6 H Chloride 95 L Carbon Dioxide 25 Anion Gap 22 H BUN 70 H Creatinine 7.76 H* Estim Creat Clear Calc 8.2 Estimated GFR 7 POC Glucose 174 H 190 H Random Glucose 183 H Lactic Acid Calcium 8.6 Phosphorus 7.7 H Magnesium Total Bilirubin Direct Bilirubin AST ALT Alkaline Phosphatase Ammonia C-Reactive Protein Total Protein Albumin Random Vancomycin 08/23/24 08/24/24 08/24/24 20:34 06:33 10:09 WBC 15.9 H RBC 4.59 L Hgb 10.5 L Hct 33.8 L MCV 73.6 L MCH 22.9 L MCHC 31.1 RDW 19.4 H Plt Count 180 MPV Not Reportable Immature Gran % (Auto) 0.5 H Neut % (Auto) 85.0 H Lymph % (Auto) 5.[address] % (Auto) 7.3 Eos % (Auto) 1.8 Baso % (Auto) 0.2 Lymph # (Auto) 0.[address] # (Auto) 1.2 Eos # (Auto) 0.3 Baso # (Auto) 0.0 Abs Immat Gran (auto) 0.08 H Absolute Neuts (auto) 13.5 H Absolute Nucleated RBC 0.030 H Nucleated RBC % (auto) 0.2 ESR Hold Purple Top VBG pH VBG pCO2 VBG pO2 VBG HCO3 VBG O2 Saturation VBG Base Excess Sodium 138 Potassium 4.5 Chloride 97 Carbon Dioxide 27 Anion Gap 19 BUN 56 H Creatinine 6.06 H* Estim Creat Clear Calc 10.6 Estimated GFR 9 POC Glucose 200 H 50 L* Random Glucose 84 Lactic Acid Calcium 8.6 Phosphorus Magnesium Total Bilirubin Direct Bilirubin AST ALT Alkaline Phosphatase Ammonia C-Reactive Protein Total Protein Albumin Random Vancomycin 08/24/24 08/24/24 08/24/24 10:37 10:47 10:58 WBC RBC Hgb Hct MCV MCH MCHC RDW Plt Count MPV Immature Gran % (Auto) Neut % (Auto) Lymph % (Auto) [place] % (Auto) Eos % (Auto) Baso % (Auto) Lymph # (Auto) [place] # (Auto) Eos # (Auto) Baso # (Auto) Abs Immat Gran (auto) Absolute Neuts (auto) Absolute Nucleated RBC Nucleated RBC % (auto) ESR Hold Purple Top VBG pH VBG pCO2 VBG pO2 VBG HCO3 VBG O2 Saturation VBG Base Excess Sodium Potassium Chloride Carbon Dioxide Anion Gap BUN Creatinine Estim Creat Clear Calc Estimated GFR POC Glucose 88 101 Random Glucose Lactic Acid Calcium Phosphorus Magnesium Total Bilirubin Direct Bilirubin AST ALT Alkaline Phosphatase Ammonia C-Reactive Protein Total Protein Albumin Random Vancomycin 16.7 08/24/24 08/24/24 08/24/24 11:38 11:47 15:12 WBC RBC Hgb Hct MCV MCH MCHC RDW Plt Count MPV Immature Gran % (Auto) Neut % (Auto) Lymph % (Auto) [place] % (Auto) Eos % (Auto) Baso % (Auto) Lymph # (Auto) [place] # (Auto) Eos # (Auto) Baso # (Auto) Abs Immat Gran (auto) Absolute Neuts (auto) Absolute Nucleated RBC Nucleated RBC % (auto) ESR Hold Purple Top VBG pH 7.38 VBG pCO2 60 VBG pO2 58 VBG HCO3 36 H VBG O2 Saturation 83.0 VBG Base Excess 9.0 Sodium 140 Potassium 4.1 Chloride 97 Carbon Dioxide 30 H Anion Gap 17 BUN 35 H Creatinine 4.61 H* Estim Creat Clear Calc 13.9 Estimated GFR 13 POC Glucose 63 Random Glucose 101 Lactic Acid Calcium 9.0 Phosphorus Magnesium Total Bilirubin 0.5 Direct Bilirubin 0.3 AST 18 ALT 19 Alkaline Phosphatase 143 H Ammonia 32 C-Reactive Protein Total Protein 7.0 Albumin 3.4 L Random Vancomycin 08/24/24 08/24/24 08/24/24 15:31 15:54 20:26 WBC RBC Hgb Hct MCV MCH MCHC RDW Plt Count MPV Immature Gran % (Auto) Neut % (Auto) Lymph % (Auto) [place] % (Auto) Eos % (Auto) Baso % (Auto) Lymph # (Auto) [place] # (Auto) Eos # (Auto) Baso # (Auto) Abs Immat Gran (auto) Absolute Neuts (auto) Absolute Nucleated RBC Nucleated RBC % (auto) ESR Hold Purple Top VBG pH VBG pCO2 VBG pO2 VBG HCO3 VBG O2 Saturation VBG Base Excess Sodium Potassium Chloride Carbon Dioxide Anion Gap BUN Creatinine Estim Creat Clear Calc Estimated GFR POC Glucose 59 L* 85 100 Random Glucose Lactic Acid Calcium Phosphorus Magnesium Total Bilirubin Direct Bilirubin AST ALT Alkaline Phosphatase Ammonia C-Reactive Protein Total Protein Albumin Random Vancomycin 08/25/24 08/25/24 08/25/24 01:09 04:20 06:00 WBC RBC Hgb Hct MCV MCH MCHC RDW Plt Count MPV Immature Gran % (Auto) Neut % (Auto) Lymph % (Auto) [place] % (Auto) Eos % (Auto) Baso % (Auto) Lymph # (Auto) [place] # (Auto) Eos # (Auto) Baso # (Auto) Abs Immat Gran (auto) Absolute Neuts (auto) Absolute Nucleated RBC Nucleated RBC % (auto) ESR Hold Purple Top VBG pH VBG pCO2 VBG pO2 VBG HCO3 VBG O2 Saturation VBG Base Excess Sodium Potassium Chloride Carbon Dioxide Anion Gap BUN Creatinine Estim Creat Clear Calc Estimated GFR POC Glucose 69 58 L* 102 Random Glucose Lactic Acid Calcium Phosphorus Magnesium Total Bilirubin Direct Bilirubin AST ALT Alkaline Phosphatase Ammonia C-Reactive Protein Total Protein Albumin Random Vancomycin 08/25/24 08/25/24 08/25/24 07:11 07:15 07:40 WBC 13.7 H RBC 4.57 L Hgb 10.6 L Hct 34.0 L MCV 74.4 L MCH 23.2 L MCHC 31.2 RDW 19.3 H Plt Count 164 MPV TNP Immature Gran % (Auto) 0.8 H Neut % (Auto) 81.0 H Lymph % (Auto) 8.[address] % (Auto) 8.4 Eos % (Auto) 1.1 Baso % (Auto) 0.1 Lymph # (Auto) 1.2 [place] # (Auto) 1.2 Eos # (Auto) 0.2 Baso # (Auto) 0.0 Abs Immat Gran (auto) 0.11 H Absolute Neuts (auto) 11.1 H Absolute Nucleated RBC 0.030 H Nucleated RBC % (auto) 0.2 ESR Hold Purple Top VBG pH 7.43 VBG pCO2 47 VBG pO2 64 VBG HCO3 31 H VBG O2 Saturation 88.0 VBG Base Excess 6.3 Sodium 134 L Potassium 5.3 H D Chloride 94 L Carbon Dioxide 27 Anion Gap 18 BUN 49 H Creatinine 5.96 H* Estim Creat Clear Calc 10.8 Estimated GFR 9 POC Glucose 95 Random Glucose 90 Lactic Acid Calcium 8.8 Phosphorus Magnesium Total Bilirubin Direct Bilirubin AST ALT Alkaline Phosphatase Ammonia C-Reactive Protein Total Protein Albumin Random Vancomycin 08/25/24 08/25/24 08/25/24 10:25 13:44 16:31 WBC RBC Hgb Hct MCV MCH MCHC RDW Plt Count MPV Immature Gran % (Auto) Neut % (Auto) Lymph % (Auto) [place] % (Auto) Eos % (Auto) Baso % (Auto) Lymph # (Auto) [place] # (Auto) Eos # (Auto) Baso # (Auto) Abs Immat Gran (auto) Absolute Neuts (auto) Absolute Nucleated RBC Nucleated RBC % (auto) ESR Hold Purple Top VBG pH VBG pCO2 VBG pO2 VBG HCO3 VBG O2 Saturation VBG Base Excess Sodium Potassium Chloride Carbon Dioxide Anion Gap BUN Creatinine Estim Creat Clear Calc Estimated GFR POC Glucose 180 H 168 H 165 H Random Glucose Lactic Acid Calcium Phosphorus Magnesium Total Bilirubin Direct Bilirubin AST ALT Alkaline Phosphatase Ammonia C-Reactive Protein Total Protein Albumin Random Vancomycin 08/25/24 08/26/24 08/26/24 19:56 01:18 04:41 WBC RBC Hgb Hct MCV MCH MCHC RDW Plt Count MPV Immature Gran % (Auto) Neut % (Auto) Lymph % (Auto) [facility] % (Auto) Eos % (Auto) Baso % (Auto) Lymph # (Auto) [place] # (Auto) Eos # (Auto) Baso # (Auto) Abs Immat Gran (auto) Absolute Neuts (auto) Absolute Nucleated RBC Nucleated RBC % (auto) ESR Hold Purple Top VBG pH VBG pCO2 VBG pO2 VBG HCO3 VBG O2 Saturation VBG Base Excess Sodium Potassium Chloride Carbon Dioxide Anion Gap BUN Creatinine Estim Creat Clear Calc Estimated GFR POC Glucose 134 H 114 88 Random Glucose Lactic Acid Calcium Phosphorus Magnesium Total Bilirubin Direct Bilirubin AST ALT Alkaline Phosphatase Ammonia C-Reactive Protein Total Protein Albumin Random Vancomycin 08/26/24 08/26/24 08/26/24 07:00 08:49 10:06 WBC 16.4 H RBC 4.62 Hgb 10.7 L Hct 33.6 L MCV 72.7 L MCH 23.2 L MCHC 31.8 RDW 18.8 H Plt Count 178 MPV Not Reportable Immature Gran % (Auto) 0.7 H Neut % (Auto) 82.8 H Lymph % (Auto) 6.[address] % (Auto) 8.6 Eos % (Auto) 1.0 Baso % (Auto) 0.2 Lymph # (Auto) 1.[address] # (Auto) 1.4 H Eos # (Auto) 0.2 Baso # (Auto) 0.0 Abs Immat Gran (auto) 0.12 H Absolute Neuts (auto) 13.5 H Absolute Nucleated RBC 0.000 Nucleated RBC % (auto) 0.0 ESR Hold Purple Top VBG pH VBG pCO2 VBG pO2 VBG HCO3 VBG O2 Saturation VBG Base Excess Sodium 132 L Potassium 6.1 H* Chloride 91 L Carbon Dioxide 24 Anion Gap 23 H BUN 64 H Creatinine 7.92 H* Estim Creat Clear Calc 8.1 Estimated GFR 7 POC Glucose 80 97 Random Glucose 66 Lactic Acid Calcium 8.9 Phosphorus 8.9 H Magnesium Total Bilirubin Direct Bilirubin AST ALT Alkaline Phosphatase Ammonia C-Reactive Protein Total Protein Albumin Random Vancomycin 08/26/24 08/26/24 08/26/24 15:25 16:57 19:16 WBC RBC Hgb Hct MCV MCH MCHC RDW Plt Count MPV Immature Gran % (Auto) Neut % (Auto) Lymph % (Auto) [place] % (Auto) Eos % (Auto) Baso % (Auto) Lymph # (Auto) [place] # (Auto) Eos # (Auto) Baso # (Auto) Abs Immat Gran (auto) Absolute Neuts (auto) Absolute Nucleated RBC Nucleated RBC % (auto) ESR Hold Purple Top VBG pH VBG pCO2 VBG pO2 VBG HCO3 VBG O2 Saturation VBG Base Excess Sodium Potassium Chloride Carbon Dioxide Anion Gap BUN Creatinine Estim Creat Clear Calc Estimated GFR POC Glucose 127 H 131 H Random Glucose Lactic Acid Calcium Phosphorus Magnesium Total Bilirubin Direct Bilirubin AST ALT Alkaline Phosphatase Ammonia C-Reactive Protein Total Protein Albumin Random Vancomycin 12.3 L 08/26/24 08/26/24 08/27/24 20:07 22:56 01:20 WBC RBC Hgb Hct MCV MCH MCHC RDW Plt Count MPV Immature Gran % (Auto) Neut % (Auto) Lymph % (Auto) [facility] % (Auto) Eos % (Auto) Baso % (Auto) Lymph # (Auto) [facility] # (Auto) Eos # (Auto) Baso # (Auto) Abs Immat Gran (auto) Absolute Neuts (auto) Absolute Nucleated RBC Nucleated RBC % (auto) ESR Hold Purple Top VBG pH 7.41 VBG pCO2 51 VBG pO2 73 VBG HCO3 33 H VBG O2 Saturation 92.0 VBG Base Excess 7.1 Sodium Potassium Chloride Carbon Dioxide Anion Gap BUN Creatinine Estim Creat Clear Calc Estimated GFR POC Glucose 121 H 95 Random Glucose Lactic Acid Calcium Phosphorus Magnesium Total Bilirubin Direct Bilirubin AST ALT Alkaline Phosphatase Ammonia C-Reactive Protein Total Protein Albumin Random Vancomycin 08/27/24 08/27/24 08/27/24 03:11 06:07 07:02 WBC 14.6 H RBC 4.55 L Hgb 10.4 L Hct 33.1 L MCV 72.7 L MCH 22.9 L MCHC 31.4 RDW 18.8 H Plt Count 189 MPV Not Reportable Immature Gran % (Auto) Neut % (Auto) Lymph % (Auto) [place] % (Auto) Eos % (Auto) Baso % (Auto) Lymph # (Auto) [place] # (Auto) Eos # (Auto) Baso # (Auto) Abs Immat Gran (auto) Absolute Neuts (auto) Absolute Nucleated RBC 0.000 Nucleated RBC % (auto) 0.0 ESR Hold Purple Top VBG pH VBG pCO2 VBG pO2 VBG HCO3 VBG O2 Saturation VBG Base Excess Sodium 136 Potassium 4.5 D Chloride 96 Carbon Dioxide 25 Anion Gap 20 BUN 37 H Creatinine 5.19 H* Estim Creat Clear Calc 12.4 Estimated GFR 11 POC Glucose 90 75 Random Glucose 76 Lactic Acid Calcium 9.2 Phosphorus Magnesium Total Bilirubin Direct Bilirubin AST ALT Alkaline Phosphatase Ammonia C-Reactive Protein Total Protein Albumin Random Vancomycin 08/27/24 08/27/24 08/27/24 08:36 12:31 16:15 WBC RBC Hgb Hct MCV MCH MCHC RDW Plt Count MPV Immature Gran % (Auto) Neut % (Auto) Lymph % (Auto) [facility] % (Auto) Eos % (Auto) Baso % (Auto) Lymph # (Auto) [facility] # (Auto) Eos # (Auto) Baso # (Auto) Abs Immat Gran (auto) Absolute Neuts (auto) Absolute Nucleated RBC Nucleated RBC % (auto) ESR Hold Purple Top VBG pH VBG pCO2 VBG pO2 VBG HCO3 VBG O2 Saturation VBG Base Excess Sodium Potassium Chloride Carbon Dioxide Anion Gap BUN Creatinine Estim Creat Clear Calc Estimated GFR POC Glucose 166 H 101 118 H Random Glucose Lactic Acid Calcium Phosphorus Magnesium Total Bilirubin Direct Bilirubin AST ALT Alkaline Phosphatase Ammonia C-Reactive Protein Total Protein Albumin Random Vancomycin 08/27/24 08/27/24 08/28/24 19:41 20:57 01:19 WBC RBC Hgb Hct MCV MCH MCHC RDW Plt Count MPV Immature Gran % (Auto) Neut % (Auto) Lymph % (Auto) [place] % (Auto) Eos % (Auto) Baso % (Auto) Lymph # (Auto) [place] # (Auto) Eos # (Auto) Baso # (Auto) Abs Immat Gran (auto) Absolute Neuts (auto) Absolute Nucleated RBC Nucleated RBC % (auto) ESR Hold Purple Top VBG pH VBG pCO2 VBG pO2 VBG HCO3 VBG O2 Saturation VBG Base Excess Sodium Potassium Chloride Carbon Dioxide Anion Gap BUN Creatinine Estim Creat Clear Calc Estimated GFR POC Glucose 224 H 222 H 278 H Random Glucose Lactic Acid Calcium Phosphorus Magnesium Total Bilirubin Direct Bilirubin AST ALT Alkaline Phosphatase Ammonia C-Reactive Protein Total Protein Albumin Random Vancomycin 08/28/24 08/28/24 08/28/24 01:39 04:28 07:05 WBC 15.0 H RBC 4.59 L Hgb 10.5 L Hct 33.8 L MCV 73.6 L MCH 22.9 L MCHC 31.1 RDW 18.8 H Plt Count 218 MPV Not Reportable Immature Gran % (Auto) Neut % (Auto) Lymph % (Auto) [place] % (Auto) Eos % (Auto) Baso % (Auto) Lymph # (Auto) [place] # (Auto) Eos # (Auto) Baso # (Auto) Abs Immat Gran (auto) Absolute Neuts (auto) Absolute Nucleated RBC 0.000 Nucleated RBC % (auto) 0.0 ESR Hold Purple Top VBG pH VBG pCO2 VBG pO2 VBG HCO3 VBG O2 Saturation VBG Base Excess Sodium 137 Potassium 5.0 Chloride 97 Carbon Dioxide 23 Anion Gap 22 H BUN 56 H Creatinine 7.02 H* Estim Creat Clear Calc 9.1 Estimated GFR 8 POC Glucose 267 H 209 H Random Glucose 243 H Lactic Acid Calcium 8.9 Phosphorus 10.4 H Magnesium Total Bilirubin Direct Bilirubin AST ALT Alkaline Phosphatase Ammonia C-Reactive Protein Total Protein Albumin Random Vancomycin 08/28/24 08/28/24 08/28/24 07:29 11:23 16:15 WBC RBC Hgb Hct MCV MCH MCHC RDW Plt Count MPV Immature Gran % (Auto) Neut % (Auto) Lymph % (Auto) [place] % (Auto) Eos % (Auto) Baso % (Auto) Lymph # (Auto) [place] # (Auto) Eos # (Auto) Baso # (Auto) Abs Immat Gran (auto) Absolute Neuts (auto) Absolute Nucleated RBC Nucleated RBC % (auto) ESR Hold Purple Top VBG pH VBG pCO2 VBG pO2 VBG HCO3 VBG O2 Saturation VBG Base Excess Sodium Potassium Chloride Carbon Dioxide Anion Gap BUN Creatinine Estim Creat Clear Calc Estimated GFR POC Glucose 230 H 224 H 170 H Random Glucose Lactic Acid Calcium Phosphorus Magnesium Total Bilirubin Direct Bilirubin AST ALT Alkaline Phosphatase Ammonia C-Reactive Protein Total Protein Albumin Random Vancomycin 08/28/24 08/28/24 08/28/24 18:16 20:08 23:34 WBC RBC Hgb Hct MCV MCH MCHC RDW Plt Count MPV Immature Gran % (Auto) Neut % (Auto) Lymph % (Auto) [place] % (Auto) Eos % (Auto) Baso % (Auto) Lymph # (Auto) [place] # (Auto) Eos # (Auto) Baso # (Auto) Abs Immat Gran (auto) Absolute Neuts (auto) Absolute Nucleated RBC Nucleated RBC % (auto) ESR Hold Purple Top VBG pH VBG pCO2 VBG pO2 VBG HCO3 VBG O2 Saturation VBG Base Excess Sodium Potassium Chloride Carbon Dioxide Anion Gap BUN Creatinine Estim Creat Clear Calc Estimated GFR POC Glucose 268 H 181 H Random Glucose Lactic Acid Calcium Phosphorus Magnesium Total Bilirubin Direct Bilirubin AST ALT Alkaline Phosphatase Ammonia C-Reactive Protein Total Protein Albumin Random Vancomycin 12.7 L 08/29/24 08/29/24 08/29/24 03:37 06:17 07:22 WBC 13.7 H RBC 4.64 Hgb 10.4 L Hct 34.3 L MCV 73.9 L MCH 22.4 L MCHC 30.3 L RDW 18.8 H Plt Count 241 MPV Not Reportable Immature Gran % (Auto) Neut % (Auto) Lymph % (Auto) [place] % (Auto) Eos % (Auto) Baso % (Auto) Lymph # (Auto) [place] # (Auto) Eos # (Auto) Baso # (Auto) Abs Immat Gran (auto) Absolute Neuts (auto) Absolute Nucleated RBC 0.000 Nucleated RBC % (auto) 0.0 ESR Hold Purple Top VBG pH VBG pCO2 VBG pO2 VBG HCO3 VBG O2 Saturation VBG Base Excess Sodium 138 Potassium 4.3 Chloride 99 Carbon Dioxide 24 Anion Gap 19 BUN 35 H Creatinine 4.94 H* Estim Creat Clear Calc 13.0 Estimated GFR 12 POC Glucose 186 H 137 H Random Glucose 152 H Lactic Acid Calcium 8.8 Phosphorus Magnesium Total Bilirubin Direct Bilirubin AST ALT Alkaline Phosphatase Ammonia C-Reactive Protein Total Protein Albumin Random Vancomycin 08/29/24 08/29/24 08/29/24 11:56 15:31 19:46 WBC RBC Hgb Hct MCV MCH MCHC RDW Plt Count MPV Immature Gran % (Auto) Neut % (Auto) Lymph % (Auto) [place] % (Auto) Eos % (Auto) Baso % (Auto) Lymph # (Auto) [facility] # (Auto) Eos # (Auto) Baso # (Auto) Abs Immat Gran (auto) Absolute Neuts (auto) Absolute Nucleated RBC Nucleated RBC % (auto) ESR Hold Purple Top VBG pH VBG pCO2 VBG pO2 VBG HCO3 VBG O2 Saturation VBG Base Excess Sodium Potassium Chloride Carbon Dioxide Anion Gap BUN Creatinine Estim Creat Clear Calc Estimated GFR POC Glucose 236 H 161 H 204 H Random Glucose Lactic Acid Calcium Phosphorus Magnesium Total Bilirubin Direct Bilirubin AST ALT Alkaline Phosphatase Ammonia C-Reactive Protein Total Protein Albumin Random Vancomycin 08/30/24 08/30/24 08/30/24 03:14 06:26 08:10 WBC 14.5 H RBC 4.84 Hgb 11.1 L Hct 35.5 L MCV 73.3 L MCH 22.9 L MCHC 31.3 RDW 18.4 H Plt Count 261 MPV Not Reportable Immature Gran % (Auto) Neut % (Auto) Lymph % (Auto) [place] % (Auto) Eos % (Auto) Baso % (Auto) Lymph # (Auto) [facility] # (Auto) Eos # (Auto) Baso # (Auto) Abs Immat Gran (auto) Absolute Neuts (auto) Absolute Nucleated RBC 0.000 Nucleated RBC % (auto) 0.0 ESR Hold Purple Top VBG pH VBG pCO2 VBG pO2 VBG HCO3 VBG O2 Saturation VBG Base Excess Sodium 135 Potassium 4.4 Chloride 97 Carbon Dioxide 24 Anion Gap 18 BUN 51 H Creatinine 6.37 H* Estim Creat Clear Calc 10.1 Estimated GFR 9 POC Glucose 167 H 127 H Random Glucose 145 H Lactic Acid Calcium 8.6 Phosphorus Magnesium Total Bilirubin Direct Bilirubin AST ALT Alkaline Phosphatase Ammonia C-Reactive Protein Total Protein Albumin Random Vancomycin 08/30/24 08/30/24 08/30/24 14:50 18:18 20:39 WBC RBC Hgb Hct MCV MCH MCHC RDW Plt Count MPV Immature Gran % (Auto) Neut % (Auto) Lymph % (Auto) [place] % (Auto) Eos % (Auto) Baso % (Auto) Lymph # (Auto) [place] # (Auto) Eos # (Auto) Baso # (Auto) Abs Immat Gran (auto) Absolute Neuts (auto) Absolute Nucleated RBC Nucleated RBC % (auto) ESR Hold Purple Top VBG pH VBG pCO2 VBG pO2 VBG HCO3 VBG O2 Saturation VBG Base Excess Sodium Potassium Chloride Carbon Dioxide Anion Gap BUN Creatinine Estim Creat Clear Calc Estimated GFR POC Glucose 126 H 415 H* Random Glucose Lactic Acid Calcium Phosphorus Magnesium Total Bilirubin Direct Bilirubin AST ALT Alkaline Phosphatase Ammonia C-Reactive Protein Total Protein Albumin Random Vancomycin 16.6 08/31/24 08/31/24 08/31/24 00:03 03:41 06:39 WBC 18.1 H RBC 4.77 Hgb 10.9 L Hct 34.8 L MCV 73.0 L MCH 22.9 L MCHC 31.3 RDW 18.5 H Plt Count 296 MPV 10.8 Immature Gran % (Auto) Neut % (Auto) Lymph % (Auto) [place] % (Auto) Eos % (Auto) Baso % (Auto) Lymph # (Auto) [facility] # (Auto) Eos # (Auto) Baso # (Auto) Abs Immat Gran (auto) Absolute Neuts (auto) Absolute Nucleated RBC 0.000 Nucleated RBC % (auto) 0.0 ESR Hold Purple Top VBG pH VBG pCO2 VBG pO2 VBG HCO3 VBG O2 Saturation VBG Base Excess Sodium 140 Potassium 4.9 Chloride 102 Carbon Dioxide 23 Anion Gap 20 BUN 54 H Creatinine 5.94 H* Estim Creat Clear Calc 10.8 Estimated GFR 10 POC Glucose 276 H 281 H Random Glucose 334 H Lactic Acid Calcium 8.6 Phosphorus Magnesium Total Bilirubin Direct Bilirubin AST ALT Alkaline Phosphatase Ammonia C-Reactive Protein Total Protein Albumin Random Vancomycin 08/31/24 08/31/24 08/31/24 07:26 11:20 15:32 WBC RBC Hgb Hct MCV MCH MCHC RDW Plt Count MPV Immature Gran % (Auto) Neut % (Auto) Lymph % (Auto) [facility] % (Auto) Eos % (Auto) Baso % (Auto) Lymph # (Auto) [facility] # (Auto) Eos # (Auto) Baso # (Auto) Abs Immat Gran (auto) Absolute Neuts (auto) Absolute Nucleated RBC Nucleated RBC % (auto) ESR Hold Purple Top VBG pH VBG pCO2 VBG pO2 VBG HCO3 VBG O2 Saturation VBG Base Excess Sodium Potassium Chloride Carbon Dioxide Anion Gap BUN Creatinine Estim Creat Clear Calc Estimated GFR POC Glucose 296 H 169 H 197 H Random Glucose Lactic Acid Calcium Phosphorus Magnesium Total Bilirubin Direct Bilirubin AST ALT Alkaline Phosphatase Ammonia C-Reactive Protein Total Protein Albumin Random Vancomycin 08/31/24 09/01/24 09/01/24 21:11 06:23 07:37 WBC 15.9 H RBC 4.66 Hgb 10.7 L Hct 33.8 L MCV 72.5 L MCH 23.0 L MCHC 31.7 RDW 18.2 H Plt Count 314 MPV 10.5 Immature Gran % (Auto) Neut % (Auto) Lymph % (Auto) [place] % (Auto) Eos % (Auto) Baso % (Auto) Lymph # (Auto) [facility] # (Auto) Eos # (Auto) Baso # (Auto) Abs Immat Gran (auto) Absolute Neuts (auto) Absolute Nucleated RBC 0.000 Nucleated RBC % (auto) 0.0 ESR Hold Purple Top VBG pH VBG pCO2 VBG pO2 VBG HCO3 VBG O2 Saturation VBG Base Excess Sodium 137 Potassium 4.7 Chloride 101 Carbon Dioxide 20 L Anion Gap 21 H BUN 74 H Creatinine 7.21 H* Estim Creat Clear Calc 8.9 Estimated GFR 8 POC Glucose 228 H 102 Random Glucose 119 H Lactic Acid Calcium 8.8 Phosphorus Magnesium Total Bilirubin Direct Bilirubin AST ALT Alkaline Phosphatase Ammonia C-Reactive Protein Total Protein Albumin Random Vancomycin 09/01/24 09/01/24 09/01/24 10:51 15:39 20:01 WBC RBC Hgb Hct MCV MCH MCHC RDW Plt Count MPV Immature Gran % (Auto) Neut % (Auto) Lymph % (Auto) [facility] % (Auto) Eos % (Auto) Baso % (Auto) Lymph # (Auto) [facility] # (Auto) Eos # (Auto) Baso # (Auto) Abs Immat Gran (auto) Absolute Neuts (auto) Absolute Nucleated RBC Nucleated RBC % (auto) ESR Hold Purple Top VBG pH VBG pCO2 VBG pO2 VBG HCO3 VBG O2 Saturation VBG Base Excess Sodium Potassium Chloride Carbon Dioxide Anion Gap BUN Creatinine Estim Creat Clear Calc Estimated GFR POC Glucose 157 H 285 H 239 H Random Glucose Lactic Acid Calcium Phosphorus Magnesium Total Bilirubin Direct Bilirubin AST ALT Alkaline Phosphatase Ammonia C-Reactive Protein Total Protein Albumin Random Vancomycin 09/02/24 09/02/24 09/02/24 05:46 07:11 10:59 WBC 16.4 H RBC 4.62 Hgb 10.7 L Hct 34.0 L MCV 73.6 L MCH 23.2 L MCHC 31.5 RDW 18.2 H Plt Count 396 D MPV 11.5 Immature Gran % (Auto) Neut % (Auto) Lymph % (Auto) [facility] % (Auto) Eos % (Auto) Baso % (Auto) Lymph # (Auto) [facility] # (Auto) Eos # (Auto) Baso # (Auto) Abs Immat Gran (auto) Absolute Neuts (auto) Absolute Nucleated RBC 0.000 Nucleated RBC % (auto) 0.0 ESR 36 H Hold Purple Top VBG pH VBG pCO2 VBG pO2 VBG HCO3 VBG O2 Saturation VBG Base Excess Sodium 135 Potassium 5.4 H Chloride 98 Carbon Dioxide 23 Anion Gap 19 BUN 93 H Creatinine 8.51 H* Estim Creat Clear Calc 7.5 Estimated GFR 6 POC Glucose 92 171 H Random Glucose 95 Lactic Acid Calcium 8.7 Phosphorus Magnesium Total Bilirubin Direct Bilirubin AST ALT Alkaline Phosphatase Ammonia C-Reactive Protein 8.23 H Total Protein Albumin Random Vancomycin 09/02/24 09/02/24 09/02/24 16:15 18:12 20:31 WBC RBC Hgb Hct MCV MCH MCHC RDW Plt Count MPV Immature Gran % (Auto) Neut % (Auto) Lymph % (Auto) [facility] % (Auto) Eos % (Auto) Baso % (Auto) Lymph # (Auto) [facility] # (Auto) Eos # (Auto) Baso # (Auto) Abs Immat Gran (auto) Absolute Neuts (auto) Absolute Nucleated RBC Nucleated RBC % (auto) ESR Hold Purple Top VBG pH VBG pCO2 VBG pO2 VBG HCO3 VBG O2 Saturation VBG Base Excess Sodium Potassium Chloride Carbon Dioxide Anion Gap BUN Creatinine Estim Creat Clear Calc Estimated GFR POC Glucose 160 H 229 H Random Glucose Lactic Acid Calcium Phosphorus Magnesium Total Bilirubin Direct Bilirubin AST ALT Alkaline Phosphatase Ammonia C-Reactive Protein Total Protein Albumin Random Vancomycin 11.7 L 09/03/24 09/03/24 09/03/24 05:35 07:33 11:13 WBC RBC Hgb Hct MCV MCH MCHC RDW Plt Count MPV Immature Gran % (Auto) Neut % (Auto) Lymph % (Auto) [facility] % (Auto) Eos % (Auto) Baso % (Auto) Lymph # (Auto) [facility] # (Auto) Eos # (Auto) Baso # (Auto) Abs Immat Gran (auto) Absolute Neuts (auto) Absolute Nucleated RBC Nucleated RBC % (auto) ESR Hold Purple Top SEE NOTE VBG pH VBG pCO2 VBG pO2 VBG HCO3 VBG O2 Saturation VBG Base Excess Sodium 137 Potassium 4.7 Chloride 100 Carbon Dioxide 24 Anion Gap 18 BUN 59 H Creatinine 6.15 H* Estim Creat Clear Calc 10.4 Estimated GFR 9 POC Glucose 150 H 211 H Random Glucose 175 H Lactic Acid Calcium 8.4 Phosphorus Magnesium Total Bilirubin Direct Bilirubin AST ALT Alkaline Phosphatase Ammonia C-Reactive Protein Total Protein Albumin Random Vancomycin 09/03/24 09/03/24 09/04/24 16:13 19:19 05:40 WBC RBC Hgb Hct MCV MCH MCHC RDW Plt Count MPV Immature Gran % (Auto) Neut % (Auto) Lymph % (Auto) [facility] % (Auto) Eos % (Auto) Baso % (Auto) Lymph # (Auto) [facility] # (Auto) Eos # (Auto) Baso # (Auto) Abs Immat Gran (auto) Absolute Neuts (auto) Absolute Nucleated RBC Nucleated RBC % (auto) ESR Hold Purple Top VBG pH VBG pCO2 VBG pO2 VBG HCO3 VBG O2 Saturation VBG Base Excess Sodium 135 Potassium 6.0 H* D Chloride 99 Carbon Dioxide 23 Anion Gap 19 BUN 77 H Creatinine 7.79 H* Estim Creat Clear Calc 8.2 Estimated GFR 7 POC Glucose 191 H 183 H Random Glucose 187 H Lactic Acid Calcium 9.0 D Phosphorus 4.9 H Magnesium Total Bilirubin Direct Bilirubin AST ALT Alkaline Phosphatase Ammonia C-Reactive Protein Total Protein Albumin Random Vancomycin 09/04/24 09/04/24 09/04/24 07:30 11:04 16:11 WBC RBC Hgb Hct MCV MCH MCHC RDW Plt Count MPV Immature Gran % (Auto) Neut % (Auto) Lymph % (Auto) [facility] % (Auto) Eos % (Auto) Baso % (Auto) Lymph # (Auto) [facility] # (Auto) Eos # (Auto) Baso # (Auto) Abs Immat Gran (auto) Absolute Neuts (auto) Absolute Nucleated RBC Nucleated RBC % (auto) ESR Hold Purple Top VBG pH VBG pCO2 VBG pO2 VBG HCO3 VBG O2 Saturation VBG Base Excess Sodium Potassium Chloride Carbon Dioxide Anion Gap BUN Creatinine Estim Creat Clear Calc Estimated GFR POC Glucose 146 H 170 H 310 H Random Glucose Lactic Acid Calcium Phosphorus Magnesium Total Bilirubin Direct Bilirubin AST ALT Alkaline Phosphatase Ammonia C-Reactive Protein Total Protein Albumin Random Vancomycin 09/04/24 09/04/24 09/05/24 18:04 19:12 07:25 WBC RBC Hgb Hct MCV MCH MCHC RDW Plt Count MPV Immature Gran % (Auto) Neut % (Auto) Lymph % (Auto) [facility] % (Auto) Eos % (Auto) Baso % (Auto) Lymph # (Auto) [facility] # (Auto) Eos # (Auto) Baso # (Auto) Abs Immat Gran (auto) Absolute Neuts (auto) Absolute Nucleated RBC Nucleated RBC % (auto) ESR Hold Purple Top VBG pH VBG pCO2 VBG pO2 VBG HCO3 VBG O2 Saturation VBG Base Excess Sodium Potassium Chloride Carbon Dioxide Anion Gap BUN Creatinine Estim Creat Clear Calc Estimated GFR POC Glucose 275 H 166 H Random Glucose Lactic Acid Calcium Phosphorus Magnesium Total Bilirubin Direct Bilirubin AST ALT Alkaline Phosphatase Ammonia C-Reactive Protein Total Protein Albumin Random Vancomycin 12.1 L 09/05/24 09/05/24 09/05/24 11:39 15:23 19:49 WBC RBC Hgb Hct MCV MCH MCHC RDW Plt Count MPV Immature Gran % (Auto) Neut % (Auto) Lymph % (Auto) [facility] % (Auto) Eos % (Auto) Baso % (Auto) Lymph # (Auto) [facility] # (Auto) Eos # (Auto) Baso # (Auto) Abs Immat Gran (auto) Absolute Neuts (auto) Absolute Nucleated RBC Nucleated RBC % (auto) ESR Hold Purple Top VBG pH VBG pCO2 VBG pO2 VBG HCO3 VBG O2 Saturation VBG Base Excess Sodium Potassium Chloride Carbon Dioxide Anion Gap BUN Creatinine Estim Creat Clear Calc Estimated GFR POC Glucose 171 H 206 H 152 H Random Glucose Lactic Acid Calcium Phosphorus Magnesium Total Bilirubin Direct Bilirubin AST ALT Alkaline Phosphatase Ammonia C-Reactive Protein Total Protein Albumin Random Vancomycin 09/06/24 09/06/24 09/06/24 07:18 11:11 16:11 WBC RBC Hgb Hct MCV MCH MCHC RDW Plt Count MPV Immature Gran % (Auto) Neut % (Auto) Lymph % (Auto) [facility] % (Auto) Eos % (Auto) Baso % (Auto) Lymph # (Auto) [facility] # (Auto) Eos # (Auto) Baso # (Auto) Abs Immat Gran (auto) Absolute Neuts (auto) Absolute Nucleated RBC Nucleated RBC % (auto) ESR Hold Purple Top VBG pH VBG pCO2 VBG pO2 VBG HCO3 VBG O2 Saturation VBG Base Excess Sodium Potassium Chloride Carbon Dioxide Anion Gap BUN Creatinine Estim Creat Clear Calc Estimated GFR POC Glucose 146 H 133 H 187 H Random Glucose Lactic Acid Calcium Phosphorus Magnesium Total Bilirubin Direct Bilirubin AST ALT Alkaline Phosphatase Ammonia C-Reactive Protein Total Protein Albumin Random Vancomycin 09/06/24 09/06/24 09/07/24 18:01 20:02 07:12 WBC RBC Hgb Hct MCV MCH MCHC RDW Plt Count MPV Immature Gran % (Auto) Neut % (Auto) Lymph % (Auto) [facility] % (Auto) Eos % (Auto) Baso % (Auto) Lymph # (Auto) [facility] # (Auto) Eos # (Auto) Baso # (Auto) Abs Immat Gran (auto) Absolute Neuts (auto) Absolute Nucleated RBC Nucleated RBC % (auto) ESR Hold Purple Top VBG pH VBG pCO2 VBG pO2 VBG HCO3 VBG O2 Saturation VBG Base Excess Sodium Potassium Chloride Carbon Dioxide Anion Gap BUN Creatinine Estim Creat Clear Calc Estimated GFR POC Glucose 91 75 Random Glucose Lactic Acid Calcium Phosphorus Magnesium Total Bilirubin Direct Bilirubin AST ALT Alkaline Phosphatase Ammonia C-Reactive Protein Total Protein Albumin Random Vancomycin 15.8 09/07/24 09/07/24 09/07/24 11:18 16:31 20:08 WBC RBC Hgb Hct MCV MCH MCHC RDW Plt Count MPV Immature Gran % (Auto) Neut % (Auto) Lymph % (Auto) [facility] % (Auto) Eos % (Auto) Baso % (Auto) Lymph # (Auto) [facility] # (Auto) Eos # (Auto) Baso # (Auto) Abs Immat Gran (auto) Absolute Neuts (auto) Absolute Nucleated RBC Nucleated RBC % (auto) ESR Hold Purple Top VBG pH VBG pCO2 VBG pO2 VBG HCO3 VBG O2 Saturation VBG Base Excess Sodium Potassium Chloride Carbon Dioxide Anion Gap BUN Creatinine Estim Creat Clear Calc Estimated GFR POC Glucose 194 H 138 H 159 H Random Glucose Lactic Acid Calcium Phosphorus Magnesium Total Bilirubin Direct Bilirubin AST ALT Alkaline Phosphatase Ammonia C-Reactive Protein Total Protein Albumin Random Vancomycin 09/08/24 09/08/24 09/08/24 07:33 11:28 16:04 WBC RBC Hgb Hct MCV MCH MCHC RDW Plt Count MPV Immature Gran % (Auto) Neut % (Auto) Lymph % (Auto) [facility] % (Auto) Eos % (Auto) Baso % (Auto) Lymph # (Auto) [facility] # (Auto) Eos # (Auto) Baso # (Auto) Abs Immat Gran (auto) Absolute Neuts (auto) Absolute Nucleated RBC Nucleated RBC % (auto) ESR Hold Purple Top VBG pH VBG pCO2 VBG pO2 VBG HCO3 VBG O2 Saturation VBG Base Excess Sodium Potassium Chloride Carbon Dioxide Anion Gap BUN Creatinine Estim Creat Clear Calc Estimated GFR POC Glucose 111 147 H 154 H Random Glucose Lactic Acid Calcium Phosphorus Magnesium Total Bilirubin Direct Bilirubin AST ALT Alkaline Phosphatase Ammonia C-Reactive Protein Total Protein Albumin Random Vancomycin 09/08/24 09/09/24 09/09/24 20:32 07:13 11:42 WBC RBC Hgb Hct MCV MCH MCHC RDW Plt Count MPV Immature Gran % (Auto) Neut % (Auto) Lymph % (Auto) [facility] % (Auto) Eos % (Auto) Baso % (Auto) Lymph # (Auto) [facility] # (Auto) Eos # (Auto) Baso # (Auto) Abs Immat Gran (auto) Absolute Neuts (auto) Absolute Nucleated RBC Nucleated RBC % (auto) ESR Hold Purple Top VBG pH VBG pCO2 VBG pO2 VBG HCO3 VBG O2 Saturation VBG Base Excess Sodium Potassium Chloride Carbon Dioxide Anion Gap BUN Creatinine Estim Creat Clear Calc Estimated GFR POC Glucose 122 H 144 H 138 H Random Glucose Lactic Acid Calcium Phosphorus Magnesium Total Bilirubin Direct Bilirubin AST ALT Alkaline Phosphatase Ammonia C-Reactive Protein Total Protein Albumin Random Vancomycin 09/09/24 09/09/24 09/09/24 13:54 17:54 17:59 WBC RBC Hgb Hct MCV MCH MCHC RDW Plt Count MPV Immature Gran % (Auto) Neut % (Auto) Lymph % (Auto) [facility] % (Auto) Eos % (Auto) Baso % (Auto) Lymph # (Auto) [facility] # (Auto) Eos # (Auto) Baso # (Auto) Abs Immat Gran (auto) Absolute Neuts (auto) Absolute Nucleated RBC Nucleated RBC % (auto) ESR Hold Purple Top VBG pH VBG pCO2 VBG pO2 VBG HCO3 VBG O2 Saturation VBG Base Excess Sodium Potassium Chloride Carbon Dioxide Anion Gap BUN Creatinine Estim Creat Clear Calc Estimated GFR POC Glucose 130 H 127 H Random Glucose Lactic Acid Calcium Phosphorus Magnesium Total Bilirubin Direct Bilirubin AST ALT Alkaline Phosphatase Ammonia C-Reactive Protein Total Protein Albumin Random Vancomycin 11.7 L 09/09/24 09/10/24 09/10/24 20:20 05:16 07:35 WBC 14.1 H RBC 5.22 Hgb 11.8 L Hct 37.8 L MCV 72.4 L MCH 22.6 L MCHC 31.2 RDW 19.0 H Plt Count 262 D MPV Not Reportable Immature Gran % (Auto) 0.6 H Neut % (Auto) 83.5 H Lymph % (Auto) 10.[address] % (Auto) 5.8 Eos % (Auto) 0.0 Baso % (Auto) 0.1 Lymph # (Auto) 1.4 [place] # (Auto) 0.8 Eos # (Auto) 0.0 Baso # (Auto) 0.0 Abs Immat Gran (auto) 0.08 H Absolute Neuts (auto) 11.8 H Absolute Nucleated RBC 0.000 Nucleated RBC % (auto) 0.0 ESR Hold Purple Top VBG pH VBG pCO2 VBG pO2 VBG HCO3 VBG O2 Saturation VBG Base Excess Sodium 135 Potassium 6.3 H* Chloride 97 Carbon Dioxide 20 L Anion Gap 24 H BUN 59 H Creatinine 7.07 H* Estim Creat Clear Calc 9.1 Estimated GFR 8 POC Glucose 148 H 153 H Random Glucose 117 H Lactic Acid Calcium 9.7 D Phosphorus 8.0 H Magnesium Total Bilirubin Direct Bilirubin AST ALT Alkaline Phosphatase Ammonia C-Reactive Protein Total Protein Albumin Random Vancomycin 09/10/24 09/10/24 09/10/24 10:12 11:23 16:17 WBC RBC Hgb Hct MCV MCH MCHC RDW Plt Count MPV Immature Gran % (Auto) Neut % (Auto) Lymph % (Auto) [facility] % (Auto) Eos % (Auto) Baso % (Auto) Lymph # (Auto) [facility] # (Auto) Eos # (Auto) Baso # (Auto) Abs Immat Gran (auto) Absolute Neuts (auto) Absolute Nucleated RBC Nucleated RBC % (auto) ESR Hold Purple Top VBG pH VBG pCO2 VBG pO2 VBG HCO3 VBG O2 Saturation VBG Base Excess Sodium Potassium 5.8 H Chloride Carbon Dioxide Anion Gap BUN Creatinine Estim Creat Clear Calc Estimated GFR POC Glucose 271 H 248 H Random Glucose Lactic Acid Calcium Phosphorus Magnesium Total Bilirubin Direct Bilirubin AST ALT Alkaline Phosphatase Ammonia C-Reactive Protein Total Protein Albumin Random Vancomycin 09/10/24 09/10/24 09/11/24 19:08 20:18 06:49 WBC RBC Hgb Hct MCV MCH MCHC RDW Plt Count MPV Immature Gran % (Auto) Neut % (Auto) Lymph % (Auto) [facility] % (Auto) Eos % (Auto) Baso % (Auto) Lymph # (Auto) [facility] # (Auto) Eos # (Auto) Baso # (Auto) Abs Immat Gran (auto) Absolute Neuts (auto) Absolute Nucleated RBC Nucleated RBC % (auto) ESR Hold Purple Top SEE NOTE VBG pH VBG pCO2 VBG pO2 VBG HCO3 VBG O2 Saturation VBG Base Excess Sodium 137 139 Potassium 6.1 H* 4.5 D Chloride 98 100 Carbon Dioxide 21 L 22 Anion Gap 24 H 22 H BUN 75 H 63 H Creatinine 8.43 H* 6.96 H* Estim Creat Clear Calc 7.6 9.2 Estimated GFR 6 8 POC Glucose 197 H Random Glucose 151 H 131 H Lactic Acid Calcium 9.4 9.5 Phosphorus Magnesium Total Bilirubin Direct Bilirubin AST ALT Alkaline Phosphatase Ammonia C-Reactive Protein Total Protein Albumin Random Vancomycin 09/11/24 09/11/24 09/11/24 10:34 11:10 16:12 WBC RBC Hgb Hct MCV MCH MCHC RDW Plt Count MPV Immature Gran % (Auto) Neut % (Auto) Lymph % (Auto) [facility] % (Auto) Eos % (Auto) Baso % (Auto) Lymph # (Auto) [facility] # (Auto) Eos # (Auto) Baso # (Auto) Abs Immat Gran (auto) Absolute Neuts (auto) Absolute Nucleated RBC Nucleated RBC % (auto) ESR Hold Purple Top VBG pH VBG pCO2 VBG pO2 VBG HCO3 VBG O2 Saturation VBG Base Excess Sodium Potassium Chloride Carbon Dioxide Anion Gap BUN Creatinine Estim Creat Clear Calc Estimated GFR POC Glucose 114 112 333 H Random Glucose Lactic Acid Calcium Phosphorus Magnesium Total Bilirubin Direct Bilirubin AST ALT Alkaline Phosphatase Ammonia C-Reactive Protein Total Protein Albumin Random Vancomycin 09/11/24 09/11/24 09/12/24 18:07 19:51 07:14 WBC RBC Hgb Hct MCV MCH MCHC RDW Plt Count MPV Immature Gran % (Auto) Neut % (Auto) Lymph % (Auto) [facility] % (Auto) Eos % (Auto) Baso % (Auto) Lymph # (Auto) [facility] # (Auto) Eos # (Auto) Baso # (Auto) Abs Immat Gran (auto) Absolute Neuts (auto) Absolute Nucleated RBC Nucleated RBC % (auto) ESR Hold Purple Top VBG pH VBG pCO2 VBG pO2 VBG HCO3 VBG O2 Saturation VBG Base Excess Sodium Potassium Chloride Carbon Dioxide Anion Gap BUN Creatinine Estim Creat Clear Calc Estimated GFR POC Glucose 240 H 138 H Random Glucose Lactic Acid Calcium Phosphorus Magnesium Total Bilirubin Direct Bilirubin AST ALT Alkaline Phosphatase Ammonia C-Reactive Protein Total Protein Albumin Random Vancomycin 13.3 L 09/12/24 09/12/24 08:34 11:28 WBC 14.5 H RBC 4.98 Hgb 11.3 L Hct 36.3 L MCV 72.9 L MCH 22.7 L MCHC 31.1 RDW 18.7 H Plt Count 252 MPV Not Reportable Immature Gran % (Auto) Neut % (Auto) Lymph % (Auto) [place] % (Auto) Eos % (Auto) Baso % (Auto) Lymph # (Auto) [place] # (Auto) Eos # (Auto) Baso # (Auto) Abs Immat Gran (auto) Absolute Neuts (auto) Absolute Nucleated RBC 0.000 Nucleated RBC % (auto) 0.0 ESR Hold Purple Top VBG pH VBG pCO2 VBG pO2 VBG HCO3 VBG O2 Saturation VBG Base Excess Sodium 138 Potassium 4.4 Chloride 97 Carbon Dioxide 25 Anion Gap 20 BUN 49 H Creatinine 6.49 H* Estim Creat Clear Calc 9.9 Estimated GFR 9 POC Glucose 119 H Random Glucose 117 H Lactic Acid Calcium 9.3 Phosphorus Magnesium Total Bilirubin Direct Bilirubin AST ALT Alkaline Phosphatase Ammonia C-Reactive Protein Total Protein Albumin Random Vancomycin Airway Mallampati Class: II TM Dist: >3cm Neck ROM: Full Loose/Missing/Broken Teeth: Yes, Upper and Lower Heart: Severe biventricular systolic dysfxn, EF 25-30% Lungs: Sat 92% on room air Assessment and Plan Assessment Anesthesia Assessment: Anesthesia Plan Discussed Final Anesthetic Review Family History of Problems with Anesthesia: No History of Problems with Anesthesia: No NPO: Yes ASA Class: IV Final Preanesthetic Review: No Changes in Pt Med Stat, Meds/Allgs Chart Reviewed, Consent Obtained/Reviewed and Anes Risks/Benef Reviewed Patient Risk: High Procedure Risk: Low Assessment/Block/Sedation in SS: Assess/Block/Sedation-SS Anesthetic Plan Anesthetic Plan: Regional Block and Agree w/ Assess. and Plan Disposition: Standard PACU
--- NOTE | 2024-09-12 13:36 | MHC.SHP ---
Pre-Procedural Eval Section A - 24 Hr Update-Section A only Date of Service: 09/12/24 The patient is an INPATIENT: Yes Changes since office visit: No Cold of Flu in the past 2 weeks, No New Medical Problems, No Changes in Medication and No Patient answered all questions The patient has been examined within 24 hours of the surgical procedure. The History & Physical has been completed within 30 days and I have reviewed it.: Yes Section B - Complete if H&P > 30 days Chief Complaint: Right hand necrosis and infection Allergies: Allergies Allergy/AdvReac Type Severity Reaction Status Date / Time Iodinated Contrast Media Allergy Severe Facial Verified 08/22/24 11:22 (Contrast Dye) Swelling hydralazine AdvReac Severe vasculitis Verified 08/22/24 11:22 Exam Exam Comment: Patient with severe peripheral vascular disease and worsening necrosis of the right hand. Worsening necrosis of the index finger, the area over the 3rd metacarpal and now the ring finger. Plan I have reviewed the history and physical and performed a pertinent physical examination on my patient. No changes have occurred unless specified. Assessment and plan: 1. Severe peripheral vascular disease with necrosis involving the right hand status post multiple I and D and middle and index finger amputations. The necrosis is worsening in his moving more proximal at the index finger amputation site , and worsening necrosis now extending to the ring finger. In talking with the patient in the family they are adamant that they very much would like us to also remove the small finger in an attempt to decrease the likelihood of yet another operative procedure. This is not unreasonable. I also had a talk with the family about the importance of stopping family members from bringing in junk food like fruit pies cookies cakes candy soda etc. which is contributing to elevations in his blood glucose. I let them know that with elevated blood glucoses can be extremely difficult for him to get wound healing, and that this would likely lead to further surgeries and higher level amputations. The family members I spoke with are in agreement. The risks and benefits of operative treatment were discussed with the patient and his son and they wishes to proceed with surgery. These risks include, but are not limited to risk of damage to blood vessels, nerves, tendons, infection, recurrence, incomplete relief of preoperative symptoms, persistent pain, possible need for further surgery and the risks associated with regional blocks and anesthesia. The plan is to take the patient to the operating room today for the following procedures: 1. Right hand transmetacarpal amputations including the index, middle, ring and small fingers. 2. I&D of right hand All of the preoperative paperwork including the consent was filled out today. All the patient's questions were answered. Time Spent With Patient Time: Total time managing care of this patient today ____ minutes.
--- NOTE | 2024-09-12 15:27 | HO.PM.IMPN ---
Subjective Subjective Date of Service: 09/12/24 Interval History: esrd,hyperkalemia Dry gangrene/ischemia of R 2nd + 3rd fingers Review of Systems feels sad/depressed ,?si Physical Exam Vital Signs: Vital Signs: Last Vital Signs Temp 97.9 F 09/12/24 12:00 Pulse 60 09/12/24 12:00 Resp 18 09/12/24 12:00 BP 147/90 H 09/12/24 12:00 Pulse Ox 92 09/12/24 12:00 O2 Del Method Room Air 09/12/24 12:00 O2 Flow Rate 2 09/04/24 03:34 BMI result Body Mass Index 27.3 Appearance: Alert.? Oriented X3.? . cvs: rrr, [id number]. res: clear to auscultation ,no rhonchii or wheezing abd: no rebound or guarding ,nt, bs present. ext :Extremities right BKA ,left lower ext -changes -please see wound care note /pic:has toe bluish discolration. neuro: axo3 , nonfocal. Objective Data Active Medications Acetaminophen (Acetaminophen 325 Mg Tablet) 650 mg PO Q6H PRN PRN Reason: Pain, Mild 1-3,fever,headache Last Admin: 09/12/24 03:34 Dose: 650 mg Documented By: DOMINIQUE Albuterol Sulfate (Albuterol Sulfate 90 Mcg 8 Gm Inhaler) 2 puff INHALE Q4H PRN PRN Reason: Wheezing Allopurinol (Allopurinol 100 Mg Tablet) 100 mg PO MOWEFR@1600 [facility] Last Admin: 09/11/24 15:51 Dose: 100 mg Documented By: BREANNE Amlodipine Besylate (Amlodipine Besylate 10 Mg Tablet) 10 mg PO DAILY [facility]; Protocol Last Admin: 09/12/24 08:13 Dose: Not Given Documented By: BREANNE Non-Admin Reason: lethargic Aspirin (Aspirin Enteric Coated 81 Mg Tablet.) 81 mg PO MOWEFR@1600 [facility] Last Admin: 09/11/24 15:50 Dose: 81 mg Documented By: BREANNE Aspirin (Aspirin Enteric Coated 81 Mg Tablet.) 81 mg PO SUTUTHSA@0900 [facility] Last Admin: 09/12/24 08:13 Dose: Not Given Documented By: BREANNE Non-Admin Reason: NPO Atorvastatin Calcium (Atorvastatin Calcium 40 Mg Tablet) 40 mg PO MOWEFR@1600 [facility] Last Admin: 09/11/24 15:51 Dose: 40 mg Documented By: BREANNE Atorvastatin Calcium (Atorvastatin Calcium 40 Mg Tablet) 40 mg PO SUTUTHSA@0900 [facility] Last Admin: 09/12/24 08:13 Dose: Not Given Documented By: BREANNE Non-Admin Reason: NPO Calcium Carbonate (Calcium Carbonate 750 Mg Tab.Chew) 750 mg PO Q4H PRN PRN Reason: Heartburn Carvedilol (Carvedilol 25 Mg Tablet) 25 mg PO BID [facility]; Protocol Last Admin: 09/12/24 08:14 Dose: Not Given Documented By: BREANNE Non-Admin Reason: lethargic Dextrose (Dextrose 50 % 25 Gm/50 Ml Syringe) 25 gm IVPUSH Q15M PRN; Protocol PRN Reason: per Hypoglycemia Standing Ord. Last Admin: 08/27/24 07:59 Dose: 25 gm Documented By: TRUDY Docusate Sodium (Docusate Sodium 100 Mg Capsule) 100 mg PO DAILY [facility] Last Admin: 09/12/24 08:14 Dose: Not Given Documented By: BREANNE Non-Admin Reason: NPO Doxazosin Mesylate (Doxazosin Mesylate 2 Mg Tablet) 4 mg PO BEDTIME [facility]; Protocol Last Admin: 09/11/24 20:40 Dose: 4 mg Documented By: DOMINIQUE Fluticasone/Umeclidinium/Vilanterol (Fluticasone/Umeclidinium/Vilanterol 100/62.5/25 Blst.W.Dev) 1 puff INHALE RDAILY [facility] Last Admin: 09/12/24 08:16 Dose: Not Given Documented By: EMELIA Non-Admin Reason: See Note Furosemide (Furosemide 40 Mg Tablet) 80 mg PO MOWEFR@1600 [facility]; Protocol Last Admin: 09/11/24 15:51 Dose: 80 mg Documented By: BREANNE Furosemide (Furosemide 40 Mg Tablet) 80 mg PO SUTUTHSA@0900 [facility]; Protocol Last Admin: 09/12/24 08:14 Dose: Not Given Documented By: BREANNE Non-Admin Reason: lethargic Glucose (Glucose Gel 15 Gm Gel..Gram.) 15 gm PO Q15M PRN PRN Reason: per Hypoglycemia Standing Ord. Last Admin: 08/25/24 04:50 Dose: 15 gm Documented By: HENRIETTA Heparin Sodium (Porcine) (Heparin Sodium,Porcine 5,000 Unit/Ml Vial) 5,000 unit SUBCUT Q12H [facility] Last Admin: 09/12/24 08:15 Dose: Not Given Documented By: BREANNE Non-Admin Reason: surgery today Hydrocortisone (Hydrocortisone 1 % Ointment 28.35 Gm Tube) 1 appl TOPICAL BID PRN; Protocol PRN Reason: itching Vancomycin HCl 500 mg/ Sodium (Chloride) 110 mls @ 110 mls/hr IV ONCE ONE Stop: 08/23/24 20:59 Cefepime HCl 1 gm/ Sodium (Chloride) 50 mls @ 100 mls/hr IV Q24H [facility] Last Infusion: 09/11/24 17:21 Dose: Infused Documented By: BREANNE Insulin Glargine (Insulin Glargine,Hum.Rec.Anlog 100 Unit/Ml 10 Ml Vial) 10 unit SUBCUT BEDTIME [facility] Last Admin: 09/11/24 20:40 Dose: 10 unit Documented By: DOMINIQUE Insulin Human Lispro (Insulin Lispro 100 Unit/Ml 3 Ml Vial) 0 unit SUBCUT QIDACHS [facility]; Protocol Last Admin: 09/12/24 11:50 Dose: Not Given Documented By: BREANNE Non-Admin Reason: pt NPO, no insulin coverage needed Levetiracetam (Levetiracetam 1,000 Mg Tablet) 1,000 mg PO BID [facility] Last Admin: 09/12/24 08:14 Dose: Not Given Documented By: BREANNE Non-Admin Reason: lethargic Losartan Potassium (Losartan Potassium 50 Mg Tablet) 50 mg PO SUTUTHSA@0900 [facility]; Protocol On Hold: 09/10/24 18:15 Last Admin: 09/10/24 08:22 Dose: 50 mg Documented By: KUMAR Losartan Potassium (Losartan Potassium 50 Mg Tablet) 50 mg PO MOWEFR@1600 [facility]; Protocol On Hold: 09/10/24 18:15 Last Admin: 09/09/24 18:11 Dose: Not Given Documented By: JAGRUTI Non-Admin Reason: Patient Asleep Magnesium Hydroxide (Milk Of Magnesia 30 Ml Oral.Susp) 30 ml PO DAILY PRN PRN Reason: Constipation Last Admin: 09/06/24 17:00 Dose: 30 ml Documented By: JAGRUTI Melatonin (Melatonin 3 Mg Tablet) 6 mg PO BEDTIME PRN PRN Reason: Insomnia Last Admin: 09/04/24 19:29 Dose: 6 mg Documented By: PATRICIA Naloxone HCl (Naloxone Hcl 0.4 Mg/Ml Vial) 0.04 mg IVPUSH Q5M PRN PRN Reason: Excessive sedation or RR < 8 Naloxone HCl (Naloxone Hcl 0.4 Mg/Ml Vial) 0.04 mg IVPUSH Q5M PRN PRN Reason: Excessive sedation or RR < 8 Omeprazole (Omeprazole 20 Mg Capsule.) 20 mg PO DAILY@0630 [facility] Last Admin: 09/12/24 05:35 Dose: 20 mg Documented By: DOMINIQUE Ondansetron HCl (Ondansetron Hcl 4 Mg/2 Ml Vial) 4 mg IVPUSH Q8H PRN PRN Reason: Nausea and Vomiting Pharmacy Consult (Consult Rx Vancomycin Dosing) 1 each MISCELLANE DAILY PRN PRN Reason: Consult order Pregabalin (Pregabalin 75 Mg Capsule) 75 mg PO DAILY [facility] Last Admin: 09/12/24 08:14 Dose: Not Given Documented By: BREANNE Non-Admin Reason: lethargic Sevelamer Carbonate (Sevelamer Carbonate Tablet 800 Mg Tablet) 800 mg PO TIDWM [facility] Last Admin: 09/12/24 11:55 Dose: Not Given Documented By: BREANNE Non-Admin Reason: lethargic Sodium Chloride (0.9 % Sodium Chloride Flush 3 Ml Syringe) 3 ml IVFLUSH QSHIFT [facility] Last Admin: 09/12/24 08:12 Dose: 3 ml Documented By: BREANNE Labs 09/12/24 08:34 09/12/24 08:34 Labs: Laboratory Results - last 24 hr 09/11/24 09/11/24 09/11/24 16:12 18:07 19:51 MCV MCH MCHC RDW Plt Count MPV Absolute Nucleated RBC Nucleated RBC % (auto) Anion Gap Estim Creat Clear Calc Estimated GFR POC Glucose 333 H 240 H Random Glucose Calcium Random Vancomycin 13.3 L 09/12/24 09/12/2409/12/25 07:14 08:34 11:28 MCV 72.9 L MCH 22.7 L MCHC 31.1 RDW 18.7 H Plt Count 252 MPV Not Reportable Absolute Nucleated RBC 0.000 Nucleated RBC % (auto) 0.0 Anion Gap 20 Estim Creat Clear Calc 9.9 Estimated GFR 9 POC Glucose 138 H 119 H Random Glucose 117 H Calcium 9.3 Random Vancomycin Assessment and Plan (1) ESRD needing dialysis: Status: Acute (2) PVD (peripheral vascular disease): Status: Acute Plan 69yo M with DM2, ESRD on HD MWF, PVD, 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 day 9 status post ray resection of right 3rd metacarpal afebrile pain control adequate On vancomycin since 08/22 and cefepime 08/31 hand surgery s/p i&D yetserday-plan [facility] dr grajeda:At the current time left lower extremity appears to be stable. It is dry gangrene. vascular would like the hand to be taken care of an resolved prior to consideration of any sort of intervention on the left lower extremity. as per vascular -patient might have a similar situation as the right and may eventually end up with an above-knee amputation. At the current time no signs of infection appears to be dry gangrene. surgery following ESRD on HD with hyperkalemia HD MWF, given loklema ,hold losartan ,low potassium/phos diet potassium improving from 6.3 -5.8 ,will give another dose of loklemia moniter bmp closely nephrology following HTN Acceptable control on current therapies adjust as indicated DM2 No further hypoglycemia. Control ok lispro correctional scale... Adjust as indicated Family was strongly suggested not to bring outside food because that causing fluctuation in the fingersticks. ? Depression with suicidal ideation: Added psych evaluation Sitter Wound care: Turn and Reposition every 2 hours and as needed for patient comfort.? Use pillows or wedges to support off loading positions. Off Load all bony prominences with use of pillows and heel boots if needed.? Apply Preventative foams where needed. ? Monitor for incontinence and moisture control, use barrier creams when needed for prevention and treatment. Provide adequate and supplemental nutrition.? Continue low air loss mattress. When applicable maintain blood glucose levels per Providers order. Left Posterior Calf - Cleanse with normal saline, pat dry. ?Apply barrier to the immediate erin wound, apply thick layer of Santyl to entire wound bed, cover with saline moist gauze, cover with dry gauze, ABD pad and gauze wrap, change Daily. Right AKA site - Cleanse with NS pat dry. Apply skin prep cover wound bed with dry gauze dressing. change every 3 days. Left Great Toe - Zavalla with Betadine allow to dry. May leave MACHINE SEWER- if drainage occurs cover with dry gauze. Zavalla Daily. Right Fingers Defer to Surgery team for topical orders. DVT PPx SC heparin In my clinical judgment, the patient requires continued inpatient hospitalization for the following reasons: IV ABX, surgical management Quality Stroke Does the patient have a stroke diagnosis?: No VTE Prior VTE?: No VTE Risk Level:: Medical - moderate - high VTE Device Contraindication: Treatment Not Indicated VTE Drug Contraindication: N/A - Med Ordered
[2024-09-12 20:32] LABS: Glucose, Whole Blood 158 mg/dL (60-115)
[2024-09-12] MEDS: Insulin Glargine,Hum.rec.anlog 100 UNIT/ML 10 ML VIAL 10 UNIT SUBCUT (21:27)
[2024-09-13] VITALS (7 sets, daily range): BP systolic 136–174; BP diastolic 65–110; PULSE 57–98; RESP 16–18; TEMP 36.4–36.8; O2SAT 93–97
[2024-09-13 07:11] LABS: Glucose, Whole Blood 256 mg/dL (60-115)
[2024-09-13] MEDS: Fluticasone/Umeclidinium/Vilanterol 100/62.5/25 BLST.W.DEV 1 PUFF INHALE (07:57)
[2024-09-13] MEDS: Sevelamer Carbonate Tablet 800 MG TABLET PO ×2 (08:07→16:59)
[2024-09-13] MEDS: oxyCODONE HCl Immed Release 5 MG TABLET PO ×4 (09:26→21:04)
[2024-09-13] MEDS: 0.9 % Sodium Chloride Flush 3 ML SYRINGE IVFLUSH ×3 (09:27→20:03)
--- NOTE | 2024-09-13 11:29 | HO.POSTANES ---
Post Anesthesia Evaluation Post Anesthesia Evaluation Date of Service: 09/13/24 Vital Signs: Vital Signs Temp Pulse Resp BP Pulse Ox O2 Del Method 09/13/24 07:58 58 18 09/13/24 07:43 97.5 F 57 18 174/110 H 97 Room Air 09/13/24 03:36 98.3 F 59 16 142/77 H 95 Anesthesia: Nerve Block Mental Status: Awake Pain Control: Satisfactory Nausea/Vomiting: None Hydration: Adequate Anesthesia-Related Issues: No Anes. Related Issues
[2024-09-13 11:32] LABS: Glucose, Whole Blood 205 mg/dL (60-115)
--- NOTE | 2024-09-13 11:37 | MHC.CM.PN ---
Per MD rounds patient not medically cleared for dc at this time. Updates sent to [facility] referrals.
--- NOTE | 2024-09-13 11:41 | P.PNVS_ITS ---
Subjective Subjective Date of Service: 09/13/24 Patient reports: no new complaints and feels better Interval history: Patient seen and examined while in dialysis. He has undergone repeat debridement of the right upper extremity yesterday. Appears to be doing rela tively well. He does complain of a fair amount of pain from the hand. Otherwise seems to be doing fairly well. Physical Exam Vital Signs: Vital Signs: Last Vital Signs Temp 97.5 F 09/13/24 07:43 Pulse 58 09/13/24 07:58 Resp 18 09/13/24 07:58 BP 174/110 H 09/13/24 07:43 Pulse Ox 97 09/13/24 07:43 O2 Del Method Room Air 09/13/24 07:43 O2 Flow Rate 2 09/12/24 16:55 BMI result Body Mass Index 27.3 Const: General: cooperative, healthy appearing and comfortable Orientation/consciousness: oriented to person, oriented to place and oriented to time HEENT: Head: Yes normal to inspection Neck: Neck: Yes normal visual inspection Carotids: no bruits Chest: Chest palpation & inspection: normal inspection of the chest Resp: Effort & Inspection: normal respiratory effort and able to speak in complete sentences Auscultation: clear to auscultation bilaterally, no crackles, no rales, no rhonchi and no wheezes Cardio: Rate: regular rate Rhythm: regular rhythm Heart sounds: S1 normal heart sound present and S2 normal heart sound present Bruits: no carotid bruits Peripheral pulses: Peripheral pulses 2+ throughout GI: Inspection: Yes normal to inspection Skin: Other: Right AKA site - stable and healed Left great toe dry eschar. No underlying fluctuance. Digits 2 3 and 4 minimal ischemia Wounds: amputation site and wounds noted Hair: normal Neuro: General: oriented to person, oriented to place and oriented to time Cranial nerves: Yes CN's II-XII intact bilaterally and Yes Normal hearing present Cognition (Neuro): normal cognition Motor exam (neuro): 5/5 motor strength present throughout Extrem: Other: venous exam: No significant superficial varicosities or spider telangiectasias, minimal edema General: No clubbing, No cyanosis and No edema Psych: Appearance: grossly normal Mental Status: mental status grossly normal Speech and movement: Normal speech and movement present Progress Note: A&P Assessment and plan (1) PVD (peripheral vascular disease): Status: Acute Assessment and Plan: In short patient has significant peripheral vascular disease. At the current time the biggest concern is his right upper extremity which is being taken care of by Orthopedics. I would like that to improve or resolve prior to addressing his left lower extremity. At the current time the right great toe does have an ulcer but it is dry and clean. No evidence of infection. We will manage this as conservatively as possible. We can most likely address this as an outpatient. Thank you for allowing us to assist in his care. If there are any questions or concerns please do not hesitate to contact us. Time Spent With Patient Time: Total time managing care of this patient today ____ minutes. Procedures Date of Service Date of Service: 09/13/24 Quality Stroke Does the patient have a stroke diagnosis?: No VTE Prior VTE?: No VTE Risk Level:: Medical - moderate - high VTE Device Contraindication: Treatment Not Indicated VTE Drug Contraindication: N/A - Med Ordered
--- NOTE | 2024-09-13 11:50 | W.PM.DNNEP ---
Subjective Subjective Date of Service: 09/13/24 This patient was seen during dialysis. Interval history: following for management of ESRD on HD while here for treatment of dry gangrene and ischemia of right 2nd and third digits. Pt reports pain in right hand- ongoing surgical interventions for ischemia. reports outside of finger pain he has no complaints/concerns. Physical Exam Vital Signs: Vital Signs: Last Vital Signs Temp 97.5 F 09/13/24 07:43 Pulse 58 09/13/24 07:58 Resp 18 09/13/24 07:58 BP 174/110 H 09/13/24 07:43 Pulse Ox 97 09/13/24 07:43 O2 Del Method Room Air 09/13/24 07:43 O2 Flow Rate 2 09/12/24 16:55 BMI result Body Mass Index 27.3 Const: General: alert and awake Resp: Effort & Inspection: normal respiratory effort and able to speak in complete sentences Auscultation: clear to auscultation bilaterally Cardio: Rate: regular rate Rhythm: regular rhythm Heart sounds: S1 normal heart sound present and S2 normal heart sound present GI: Palpation (GI): Soft to palpation and nontender Skin: Wounds: wounds noted (right hand dressing- s/p amp debridement of 2nd/3rd digits. ) Extrem: General: No edema and No pedal edema Assessment & Plan Assessment and plan (1) ESRD needing dialysis: Status: Acute Plan ESRD on HD MWF access: Right permcath appears euvolemic H&H 11.3 & 36- no indication for procrit at this time phos is 8.0- ensure sevelamer 800mg TID with meals. Calcium 9.3. Potassium 4.4 low potassium, phosphorous, and sodium diet fluid restriction 1.5L continue to monitor electrolytes renal function studies daily blood pressures elevated- will consider lowering dry weight if persistent will continue to follow Discussed with Dr Jimenez Time Spent With Patient Time: Total time managing care of this patient today ____ minutes. Procedures Date of Service Date of Service: 09/13/24
--- NOTE | 2024-09-13 13:49 | HO.PM.IMPN ---
Subjective Subjective Date of Service: 09/13/24 Interval History: Dry gangrene/ischemia of R 2nd + 3rd fingers Review of Systems has some pain/soarness surgery area no new c/o Physical Exam Vital Signs: Vital Signs: Last Vital Signs Temp 97.5 F 09/13/24 07:43 Pulse 58 09/13/24 07:58 Resp 18 09/13/24 07:58 BP 174/110 H 09/13/24 07:43 Pulse Ox 97 09/13/24 07:43 O2 Del Method Room Air 09/13/24 07:43 O2 Flow Rate 2 09/12/24 16:55 BMI result Body Mass Index 27.3 Appearance: Alert.? Oriented X3.? . cvs: rrr, [id number]. res: clear to auscultation ,no rhonchii or wheezing abd: no rebound or guarding ,nt, bs present. ext :Extremities right BKA ,left lower ext -changes similar(please see vascular and wound care note) neuro: axo3 , nonfocal. Objective Data Active Medications Acetaminophen (Acetaminophen 325 Mg Tablet) 650 mg PO Q6H PRN PRN Reason: Pain, Mild 1-3,fever,headache Last Admin: 09/13/24 01:58 Dose: 650 mg Documented By: DOMINIQUE Albuterol Sulfate (Albuterol Sulfate 90 Mcg 8 Gm Inhaler) 2 puff INHALE Q4H PRN PRN Reason: Wheezing Allopurinol (Allopurinol 100 Mg Tablet) 100 mg PO MOWEFR@1600 [facility] Last Admin: 09/11/24 15:51 Dose: 100 mg Documented By: BREANNE Amlodipine Besylate (Amlodipine Besylate 10 Mg Tablet) 10 mg PO DAILY [facility]; Protocol Last Admin: 09/12/24 08:13 Dose: Not Given Documented By: BREANNE Non-Admin Reason: lethargic Aspirin (Aspirin Enteric Coated 81 Mg Tablet.) 81 mg PO MOWEFR@1600 [facility] Last Admin: 09/11/24 15:50 Dose: 81 mg Documented By: BREANNE Aspirin (Aspirin Enteric Coated 81 Mg Tablet.) 81 mg PO SUTUTHSA@0900 [facility] Last Admin: 09/12/24 08:13 Dose: Not Given Documented By: BREANNE Non-Admin Reason: NPO Atorvastatin Calcium (Atorvastatin Calcium 40 Mg Tablet) 40 mg PO MOWEFR@1600 [facility] Last Admin: 09/11/24 15:51 Dose: 40 mg Documented By: BREANNE Atorvastatin Calcium (Atorvastatin Calcium 40 Mg Tablet) 40 mg PO SUTUTHSA@0900 [facility] Last Admin: 09/12/24 08:13 Dose: Not Given Documented By: BREANNE Non-Admin Reason: NPO Calcium Carbonate (Calcium Carbonate 750 Mg Tab.Chew) 750 mg PO Q4H PRN PRN Reason: Heartburn Carvedilol (Carvedilol 25 Mg Tablet) 25 mg PO BID [facility]; Protocol Last Admin: 09/12/24 22:31 Dose: 25 mg Documented By: DOMINIQUE Dextrose (Dextrose 50 % 25 Gm/50 Ml Syringe) 25 gm IVPUSH Q15M PRN; Protocol PRN Reason: per Hypoglycemia Standing Ord. Last Admin: 08/27/24 07:59 Dose: 25 gm Documented By: TRUDY Docusate Sodium (Docusate Sodium 100 Mg Capsule) 100 mg PO DAILY [facility] Last Admin: 09/12/24 08:14 Dose: Not Given Documented By: BREANNE Non-Admin Reason: NPO Doxazosin Mesylate (Doxazosin Mesylate 2 Mg Tablet) 4 mg PO BEDTIME [facility]; Protocol Last Admin: 09/12/24 22:31 Dose: 4 mg Documented By: DOMINIQUE Fluticasone/Umeclidinium/Vilanterol (Fluticasone/Umeclidinium/Vilanterol 100/62.5/25 Blst.W.Dev) 1 puff INHALE RDAILY [facility] Last Admin: 09/13/24 07:57 Dose: 1 puff Documented By: EVENS Furosemide (Furosemide 40 Mg Tablet) 80 mg PO MOWEFR@1600 [facility]; Protocol Last Admin: 09/11/24 15:51 Dose: 80 mg Documented By: BREANNE Furosemide (Furosemide 40 Mg Tablet) 80 mg PO SUTUTHSA@0900 [facility]; Protocol Last Admin: 09/12/24 08:14 Dose: Not Given Documented By: BREANNE Non-Admin Reason: lethargic Glucose (Glucose Gel 15 Gm Gel..Gram.) 15 gm PO Q15M PRN PRN Reason: per Hypoglycemia Standing Ord. Last Admin: 08/25/24 04:50 Dose: 15 gm Documented By: HENRIETTA Heparin Sodium (Porcine) (Heparin Sodium,Porcine 5,000 Unit/Ml Vial) 5,000 unit SUBCUT Q12H [facility] Last Admin: 09/12/24 21:27 Dose: 5,000 unit Documented By: DOMINIQUE Hydrocortisone (Hydrocortisone 1 % Ointment 28.35 Gm Tube) 1 appl TOPICAL BID PRN; Protocol PRN Reason: itching Vancomycin HCl 500 mg/ Sodium (Chloride) 110 mls @ 110 mls/hr IV ONCE ONE Stop: 08/23/24 20:59 Cefepime HCl 1 gm/ Sodium (Chloride) 50 mls @ 100 mls/hr IV Q24H [facility] Last Infusion: 09/12/24 18:26 Dose: Infused Documented By: KUMAR Insulin Glargine (Insulin Glargine,Hum.Rec.Anlog 100 Unit/Ml 10 Ml Vial) 10 unit SUBCUT BEDTIME [facility] Last Admin: 09/12/24 21:27 Dose: 10 unit Documented By: DOMINIQUE Insulin Human Lispro (Insulin Lispro 100 Unit/Ml 3 Ml Vial) 0 unit SUBCUT QIDACHS [facility]; Protocol Last Admin: 09/13/24 12:11 Dose: Not Given Documented By: FOREST Non-Admin Reason: Off unit: Dialysis Levetiracetam (Levetiracetam 1,000 Mg Tablet) 1,000 mg PO BID [facility] Last Admin: 09/13/24 09:04 Dose: Not Given Documented By: FOREST Non-Admin Reason: dialysis Losartan Potassium (Losartan Potassium 50 Mg Tablet) 50 mg PO SUTUTHSA@0900 [facility]; Protocol On Hold: 09/10/24 18:15 Last Admin: 09/10/24 08:22 Dose: 50 mg Documented By: KUMAR Losartan Potassium (Losartan Potassium 50 Mg Tablet) 50 mg PO MOWEFR@1600 [facility]; Protocol On Hold: 09/10/24 18:15 Last Admin: 09/09/24 18:11 Dose: Not Given Documented By: JAGRUTI Non-Admin Reason: Patient Asleep Magnesium Hydroxide (Milk Of Magnesia 30 Ml Oral.Susp) 30 ml PO DAILY PRN PRN Reason: Constipation Last Admin: 09/06/24 17:00 Dose: 30 ml Documented By: JAGRUTI Melatonin (Melatonin 3 Mg Tablet) 6 mg PO BEDTIME PRN PRN Reason: Insomnia Last Admin: 09/12/24 22:31 Dose: 6 mg Documented By: DOMINIQUE Naloxone HCl (Naloxone Hcl 0.4 Mg/Ml Vial) 0.04 mg IVPUSH Q5M PRN PRN Reason: Excessive sedation or RR < 8 Naloxone HCl (Naloxone Hcl 0.4 Mg/Ml Vial) 0.04 mg IVPUSH Q5M PRN PRN Reason: Excessive sedation or RR < 8 Omeprazole (Omeprazole 20 Mg Capsule.) 20 mg PO DAILY@0630 [facility] Last Admin: 09/13/24 05:53 Dose: 20 mg Documented By: DOMINIQUE Ondansetron HCl (Ondansetron Hcl 4 Mg/2 Ml Vial) 4 mg IVPUSH Q8H PRN PRN Reason: Nausea and Vomiting Pharmacy Consult (Consult Rx Vancomycin Dosing) 1 each MISCELLANE DAILY PRN PRN Reason: Consult order Pregabalin (Pregabalin 75 Mg Capsule) 75 mg PO DAILY [facility] Last Admin: 09/12/24 08:14 Dose: Not Given Documented By: RBEANNE Non-Admin Reason: lethargic Sevelamer Carbonate (Sevelamer Carbonate Tablet 800 Mg Tablet) 800 mg PO TIDWM [facility] Last Admin: 09/13/24 08:07 Dose: 800 mg Documented By: FORETS Sodium Chloride (0.9 % Sodium Chloride Flush 3 Ml Syringe) 3 ml IVFLUSH QSHIFT [facility] Last Admin: 09/13/24 09:27 Dose: 3 ml Documented By: JAYME Labs 09/12/24 08:34 09/12/24 08:34 Labs: Laboratory Results - last 24 hr 09/12/24 09/13/24 09/13/24 20:27 07:09 11:22 POC Glucose 158 H 256 H 205 H Microbiology Microbiology Results: Microbiology 09/12/24 15:30 Routine Culture - Preliminary Hand Right Culture in progress. 09/12/24 15:28 Routine Culture - Preliminary Hand Right Culture in progress. 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 day 9 status post ray resection of right 3rd metacarpal afebrile pain control adequate On vancomycin since 08/22 and cefepime 08/31 ,added oxycodone for pain control. hand surgery s/p i&D. surgery on 09/12 in [facility] seen by dr grajeda:At the current time left lower extremity appears to be stable. It is dry gangrene. vascular would like the hand to be taken care of an resolved prior to consideration of any sort of intervention on the left lower extremity. as per vascular -patient might have a similar situation as the right and may eventually end up with an above-knee amputation. At the current time no signs of infection appears to be dry gangrene. surgery following ESRD on HD with hyperkalemia HD MWF, given loklema ,hold losartan ,low potassium/phos diet potassium improving from 6.3 -5.8 ,will give another dose of loklemia moniter bmp closely nephrology following HTN Acceptable control on current therapies adjust as indicated DM2 No further hypoglycemia. Control ok lispro correctional scale... Adjust as indicated Family was strongly suggested not to bring outside food because that causing fluctuation in the fingersticks as well as its effect on patient care. ? Depression with suicidal ideation: Added psych evaluation Sitter Wound care: Turn and Reposition every 2 hours and as needed for patient comfort.? Use pillows or wedges to support off loading positions. Off Load all bony prominences with use of pillows and heel boots if needed.? Apply Preventative foams where needed. ? Monitor for incontinence and moisture control, use barrier creams when needed for prevention and treatment. Provide adequate and supplemental nutrition.? Continue low air loss mattress. When applicable maintain blood glucose levels per Providers order. Left Posterior Calf - Cleanse with normal saline, pat dry. ?Apply barrier to the immediate erin wound, apply thick layer of Santyl to entire wound bed, cover with saline moist gauze, cover with dry gauze, ABD pad and gauze wrap, change Daily. Right AKA site - Cleanse with NS pat dry. Apply skin prep cover wound bed with dry gauze dressing. change every 3 days. Left Great Toe - Scofield with Betadine allow to dry. 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 Scofield Daily. Right Fingers Defer to Surgery team for topical orders. DVT PPx SC heparin In my clinical judgment, the patient requires continued inpatient hospitalization for the following reasons: IV ABX, surgical management Quality Stroke Does the patient have a stroke diagnosis?: No VTE Prior VTE?: No VTE Risk Level:: Medical - moderate - high VTE Device Contraindication: Treatment Not Indicated VTE Drug Contraindication: N/A - Med Ordered
--- NOTE | 2024-09-13 15:16 | MHC.SPEECHCO ---
When CORRESPONDENT arrived to unit, patient was receiving nursing care w/ upsetter services. Patient is on a regular texture diet and thin liquids, CORRESPONDENT will continue to follow to monitor PO tolerance.
--- NOTE | 2024-09-13 15:23 | PM.PSYCN ---
History of Present Illness Date of Service: 09/13/24 Chief Complaint: Right hand necrosis and infection Reason for Consult: depression/SI Requesting physician: Mya Reid Discussed with referring provider: Yes Sources of Information: patient interviewed and chart reviewed HPI Narrative: Patient is a 69 year old male with hx of ESRD, diabetes, peripheral vascular disease, s/p right BKA 04/11, seizure disorder, HFrEF, HTN, HLD, chronically on 2L home O2, GERD, who presented to the ED with worsening pain in his left hand with 3rd and index fingers dry gangrene. Psychiatric consult placed for: depression/SI During psychiatric assessment, clock repairer present. Pt presents alert and oriented x3. Calm and cooperative. Patient reports feeling sad d/t medical problems. Patient stated, all the problems I've had it's been here at the hospital. If they plan on cutting off something just do it completely rather than little by little. I'm sad but I'm not feeling depressed or like I want to kill myself. If I wanted to kill myself I would have done it a long time ago. I force myself to move forward . denies psychiatric hx. denies hx of inpatient psychiatric hospitalizations. denies hx of psychiatric medications. denies hx of SA/SIB. denies HI/VH/AH. Patient reports he is not interested in starting any medications for mood; however he would be open to having a therapist to speak to when discharged. Past Psychiatric History: denies hx of IPLOC denies hx of SA/SIB denies hx of psychiatric medications Medical Evaluation Reviewed: Yes [facility] Medical History Above knee amputation of right lower extremity Left ventricular systolic dysfunction (LVSD) PVD (peripheral vascular disease) Postop check Acute pericardial effusion Right sided weakness Dehiscence of wound Peripheral arterial disease Dry gangrene Cellulitis of right foot HFrEF (heart failure with reduced ejection fraction) Chronic combined systolic and diastolic CHF (congestive heart failure) Chronic pericardial effusion Arthritis Asthma Restless leg syndrome Acute on chronic systolic and diastolic heart failure, NYHA class 3 Anemia Occlusive thrombus Pulmonary edema ROBERT (obstructive sleep apnea) Type 2 diabetes mellitus Hyperlipidemia Hypertension A-V fistula ESRD on dialysis Falling Surgical History Status post creation of pericardial window Hx of right BKA History of transmetatarsal amputation of foot Status post transmetatarsal amputation of right foot Postop check History of surgery H/O colonoscopy Recurrent pleural effusion Pleural effusion on right (07/13/23) Family History: denies Diagnostics Vital Signs (24Hr): Vital Signs - 24 hr 09/12/24 16:10 09/12/24 16:15 09/12/24 16:20 Temperature 98.0 F Pulse Rate 60 60 59 Respiratory Rate 16 16 15 Blood Pressure 148/66 H 136/65 127/65 Pulse Oximetry 98 98 97 Oxygen Delivery Method Nasal Cannula Nasal Cannula Nasal Cannula Oxygen Flow Rate 2 2 2 09/12/24 16:25 09/12/24 16:40 09/12/24 16:55 Temperature 98.1 F Pulse Rate 58 58 60 Respiratory Rate 16 14 14 Blood Pressure 131/66 152/69 H 135/75 Pulse Oximetry 98 98 100 Oxygen Delivery Method Nasal Cannula Nasal Cannula Nasal Cannula Oxygen Flow Rate 2 2 2 09/12/24 18:03 09/12/24 19:21 09/12/24 23:12 Temperature 98.1 F 97.3 F 97.5 F Pulse Rate 57 62 63 Respiratory Rate 16 16 17 Blood Pressure 180/82 H 159/63 H 139/67 Pulse Oximetry 94 96 94 Oxygen Delivery Method Room Air Room Air Room Air Oxygen Flow Rate 09/13/24 03:36 09/13/24 07:43 09/13/24 07:58 Temperature 98.3 F 97.5 F Pulse Rate 59 57 58 Respiratory Rate 16 18 18 Blood Pressure 142/77 H 174/110 H Pulse Oximetry 95 97 Oxygen Delivery Method Room Air Oxygen Flow Rate 09/13/24 14:12 Temperature 97.6 F Pulse Rate 60 Respiratory Rate 18 Blood Pressure 161/81 H Pulse Oximetry 97 Oxygen Delivery Method Room Air Oxygen Flow Rate BMI result Body Mass Index 27.3 Labs 09/12/24 08:34 09/12/24 08:34 Labs: Laboratory Results - last 48 hr 09/11/24 09/11/24 09/11/24 16:12 18:07 19:51 WBC RBC Hgb Hct MCV MCH MCHC RDW Plt Count MPV Absolute Nucleated RBC Nucleated RBC % (auto) Sodium Potassium Chloride Carbon Dioxide Anion Gap BUN Creatinine Estim Creat Clear Calc Estimated GFR POC Glucose 333 H 240 H Random Glucose Calcium Random Vancomycin 13.3 L 09/12/24 09/12/24 09/12/24 07:14 08:34 11:28 WBC 14.5 H RBC 4.98 Hgb 11.3 L Hct 36.3 L MCV 72.9 L MCH 22.7 L MCHC 31.1 RDW 18.7 H Plt Count 252 MPV Not Reportable Absolute Nucleated RBC 0.000 Nucleated RBC % (auto) 0.0 Sodium 138 Potassium 4.4 Chloride 97 Carbon Dioxide 25 Anion Gap 20 BUN 49 H Creatinine 6.49 H* Estim Creat Clear Calc 9.9 Estimated GFR 9 POC Glucose 138 H 119 H Random Glucose 117 H Calcium 9.3 Random Vancomycin 09/12/24 09/13/24 09/13/24 20:27 07:09 11:22 WBC RBC Hgb Hct MCV MCH MCHC RDW Plt Count MPV Absolute Nucleated RBC Nucleated RBC % (auto) Sodium Potassium Chloride Carbon Dioxide Anion Gap BUN Creatinine Estim Creat Clear Calc Estimated GFR POC Glucose 158 H 256 H 205 H Random Glucose Calcium Random Vancomycin Imaging Radiology Impressions: ITS Impressions Hand X-Ray 08/22/24 10:47 IMPRESSION: Amputation through the distal phalanx of the third digit near the metaphysis. Lucency in the anterior distal end of the remaining bone could be related to osteomyelitis or trauma. Soft tissue swelling of the second third digits Osteopenia Extensive vascular calcifications. Electronically signed by: Braulio Odroñez MD 08/22/2024 12:02 PM EDT RP Hand X-Ray 09/09/24 11:19 IMPRESSION: Soft tissue swelling and interval amputation at the neck of the second proximal phalanx and neck of third metacarpal. Electronically signed by: Braulio Ordoñez MD 09/09/2024 12:30 PM EDT RP Mental Status Exam Mental Status Exam Patient Appearance: Appropriate Patient Orientation: Person, Place, Time and Situation Level of Consciousness: Awake and Alert Patient Behavior: Appropriate, Cooperative and Good Eye Contact Mood Description: Sad Affect Description: Calm Ability to Follow Directions: Good Speech Pattern: Clear Hallucinations: None Delusions: Not Present Thought Process: Intact Thought Content: positive for Intact Medications Medications Current Medications Acetaminophen (Acetaminophen 325 Mg Tablet) 650 mg PO Q6H PRN PRN Reason: Pain, Mild 1-3,fever,headache Last Admin: 09/13/24 14:55 Dose: 650 mg Albuterol Sulfate (Albuterol Sulfate 90 Mcg 8 Gm Inhaler) 2 puff INHALE Q4H PRN PRN Reason: Wheezing Allopurinol (Allopurinol 100 Mg Tablet) 100 mg PO MOWEFR@1600 [facility] Last Admin: 09/11/24 15:51 Dose: 100 mg Amlodipine Besylate (Amlodipine Besylate 10 Mg Tablet) 10 mg PO DAILY [facility]; Protocol Last Admin: 09/13/24 14:54 Dose: 10 mg Aspirin (Aspirin Enteric Coated 81 Mg Tablet.) 81 mg PO MOWEFR@1600 [facility] Last Admin: 09/11/24 15:50 Dose: 81 mg Aspirin (Aspirin Enteric Coated 81 Mg Tablet.) 81 mg PO SUTUTHSA@0900 [facility] Last Admin: 09/12/24 08:13 Dose: Not Given Atorvastatin Calcium (Atorvastatin Calcium 40 Mg Tablet) 40 mg PO MOWEFR@1600 [facility] Last Admin: 09/11/24 15:51 Dose: 40 mg Atorvastatin Calcium (Atorvastatin Calcium 40 Mg Tablet) 40 mg PO SUTUTHSA@0900 [facility] Last Admin: 09/12/24 08:13 Dose: Not Given Calcium Carbonate (Calcium Carbonate 750 Mg Tab.Chew) 750 mg PO Q4H PRN PRN Reason: Heartburn Carvedilol (Carvedilol 25 Mg Tablet) 25 mg PO BID [facility]; Protocol Last Admin: 09/13/24 14:55 Dose: 25 mg Collagenase (Collagenase Clostridium Hist. 30 Gm Tube) 1 appl TOPICAL DAILY [facility] Dextrose (Dextrose 50 % 25 Gm/50 Ml Syringe) 25 gm IVPUSH Q15M PRN; Protocol PRN Reason: per Hypoglycemia Standing Ord. Last Admin: 08/27/24 07:59 Dose: 25 gm Docusate Sodium (Docusate Sodium 100 Mg Capsule) 100 mg PO DAILY [facility] Last Admin: 09/13/24 14:56 Dose: Not Given Doxazosin Mesylate (Doxazosin Mesylate 2 Mg Tablet) 4 mg PO BEDTIME [facility]; Protocol Last Admin: 09/13/24 15:01 Dose: 4 mg Fluticasone/Umeclidinium/Vilanterol (Fluticasone/Umeclidinium/Vilanterol 100/62.5/25 Blst.W.Dev) 1 puff INHALE RDAILY [facility] Last Admin: 09/13/24 07:57 Dose: 1 puff Furosemide (Furosemide 40 Mg Tablet) 80 mg PO MOWEFR@1600 [facility]; Protocol Last Admin: 09/11/24 15:51 Dose: 80 mg Furosemide (Furosemide 40 Mg Tablet) 80 mg PO SUTUTHSA@0900 [facility]; Protocol Last Admin: 09/12/24 08:14 Dose: Not Given Glucose (Glucose Gel 15 Gm Gel..Gram.) 15 gm PO Q15M PRN PRN Reason: per Hypoglycemia Standing Ord. Last Admin: 08/25/24 04:50 Dose: 15 gm Heparin Sodium (Porcine) (Heparin Sodium,Porcine 5,000 Unit/Ml Vial) 5,000 unit SUBCUT Q12H [facility] Last Admin: 09/13/24 14:37 Dose: Not Given Hydrocortisone (Hydrocortisone 1 % Ointment 28.35 Gm Tube) 1 appl TOPICAL BID PRN; Protocol PRN Reason: itching Vancomycin HCl 500 mg/ Sodium (Chloride) 110 mls @ 110 mls/hr IV ONCE ONE Stop: 08/23/24 20:59 Cefepime HCl 1 gm/ Sodium (Chloride) 50 mls @ 100 mls/hr IV Q24H [facility] Last Infusion: 09/12/24 18:26 Dose: Infused Insulin Glargine (Insulin Glargine,Hum.Rec.Anlog 100 Unit/Ml 10 Ml Vial) 10 unit SUBCUT BEDTIME [facility] Last Admin: 09/12/24 21:27 Dose: 10 unit Insulin Human Lispro (Insulin Lispro 100 Unit/Ml 3 Ml Vial) 0 unit SUBCUT QIDACHS [facility]; Protocol Last Admin: 09/13/24 12:11 Dose: Not Given Levetiracetam (Levetiracetam 1,000 Mg Tablet) 1,000 mg PO BID [facility] Last Admin: 09/13/24 14:54 Dose: 1,000 mg Losartan Potassium (Losartan Potassium 50 Mg Tablet) 50 mg PO SUTUTHSA@0900 [facility]; Protocol On Hold: 09/10/24 18:15 Last Admin: 09/10/24 08:22 Dose: 50 mg Losartan Potassium (Losartan Potassium 50 Mg Tablet) 50 mg PO MOWEFR@1600 [facility]; Protocol On Hold: 09/10/24 18:15 Last Admin: 09/09/24 18:11 Dose: Not Given Magnesium Hydroxide (Milk Of Magnesia 30 Ml Oral.Susp) 30 ml PO DAILY PRN PRN Reason: Constipation Last Admin: 09/06/24 17:00 Dose: 30 ml Melatonin (Melatonin 3 Mg Tablet) 6 mg PO BEDTIME PRN PRN Reason: Insomnia Last Admin: 09/12/24 22:31 Dose: 6 mg Naloxone HCl (Naloxone Hcl 0.4 Mg/Ml Vial) 0.04 mg IVPUSH Q5M PRN PRN Reason: Excessive sedation or RR < 8 Naloxone HCl (Naloxone Hcl 0.4 Mg/Ml Vial) 0.04 mg IVPUSH Q5M PRN PRN Reason: Excessive sedation or RR < 8 Omeprazole (Omeprazole 20 Mg Capsule.Dr) 20 mg PO DAILY@0630 [facility] Last Admin: 09/13/24 05:53 Dose: 20 mg Ondansetron HCl (Ondansetron Hcl 4 Mg/2 Ml Vial) 4 mg IVPUSH Q8H PRN PRN Reason: Nausea and Vomiting Oxycodone HCl (Oxycodone Hcl Immed Release 5 Mg Tablet) 5 mg PO Q4H PRN PRN Reason: Pain, Severe (Pain Scale 7-10) Last Admin: 09/13/24 14:16 Dose: 5 mg Pharmacy Consult (Consult Rx Vancomycin Dosing) 1 each MISCELLANE DAILY PRN PRN Reason: Consult order Pregabalin (Pregabalin 75 Mg Capsule) 75 mg PO DAILY [facility] Last Admin: 09/12/24 08:14 Dose: Not Given Sevelamer Carbonate (Sevelamer Carbonate Tablet 800 Mg Tablet) 800 mg PO TIDWM [facility] Last Admin: 09/13/24 14:56 Dose: Not Given Sodium Chloride (0.9 % Sodium Chloride Flush 3 Ml Syringe) 3 ml IVFLUSH QSHIFT [facility] Last Admin: 09/13/24 09:27 Dose: 3 ml Allergies Allergies Allergy/AdvReac Type Severity Reaction Status Date / Time Iodinated Contrast Media Allergy Severe Facial Verified 08/22/24 11:22 (Contrast Dye) Swelling hydralazine AdvReac Severe vasculitis Verified 08/22/24 11:22 Assessment & Plan Assessment & Plan (1) Encounter for consultation: Status: Acute Code(s): Z71.9 - Counseling, unspecified Plan Recommendation: -Case management referral to outpatient therapy when discharged -Pt is currently not interested in starting any psychiatric medications -Re-consult if mood changes. Total time managing care of this patient today _30___ minutes. Patient educated on: medication risk/benefits
[2024-09-13 16:06] LABS: Glucose, Whole Blood 226 mg/dL (60-115)
[2024-09-13] MEDS: Aspirin Enteric Coated 81 MG TABLET.DR PO (16:59)
[2024-09-13 20:32] LABS: Glucose, Whole Blood 220 mg/dL (60-115)
[2024-09-13] MEDS: Insulin Glargine,Hum.rec.anlog 100 UNIT/ML 10 ML VIAL 10 UNIT SUBCUT (21:04)
[2024-09-14] VITALS (14 sets, daily range): BP systolic 91–192; BP diastolic 51–81; PULSE 58–67; RESP 14–16; TEMP 36.1–36.9; O2SAT 90–100
[2024-09-14] MEDS: oxyCODONE HCl Immed Release 5 MG TABLET PO ×4 (00:22→20:40)
[2024-09-14 07:31] LABS: Glucose, Whole Blood 92 mg/dL (60-115)
[2024-09-14] MEDS: Fluticasone/Umeclidinium/Vilanterol 100/62.5/25 BLST.W.DEV 1 PUFF INHALE (07:56)
[2024-09-14] MEDS: 0.9 % Sodium Chloride Flush 3 ML SYRINGE IVFLUSH ×3 (08:02→20:41)
--- NOTE | 2024-09-14 08:50 | HO.ANESPROP2 ---
HPI - Anesthesia Eval Consult details Narrative: Right hand celullitis PMFSH Active Problems Active Problems: All Active Problems (Updated 09/13/24 @ 16:19 by Eliana Bush NP) Encounter for consultation (Acute) Status post amputation of finger of right hand (Acute) 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 (Acute) Encephalopathy (Acute) Necrosis of finger (Acute) Numbness and tingling in right hand (Acute) AKA stump complication (Acute) Cellulitis (Acute) ESRD needing dialysis (Acute) Infection of toe (Acute) Pleural effusion (Acute) Acute hypokalemia (Acute) Osteomyelitis (Acute) Somatization disorder (Acute) Trapped lung (Acute) Recurrent pleural effusion on right (Chronic) Exudative pleural effusion (Acute) Hyponatremia (Acute) Hyperkalemia (Acute) Type 2 diabetes mellitus (Acute) Dry gangrene (Acute) PVD (peripheral vascular disease) (Acute) Postop check (Acute) Acute on chronic systolic and diastolic heart failure, NYHA class 3 (Chronic) Past Medical History Medical History Above knee amputation of right lower extremity Left ventricular systolic dysfunction (LVSD) PVD (peripheral vascular disease) Postop check Acute pericardial effusion Right sided weakness Dehiscence of wound Peripheral arterial disease Dry gangrene Cellulitis of right foot HFrEF (heart failure with reduced ejection fraction) Chronic combined systolic and diastolic CHF (congestive heart failure) Chronic pericardial effusion Arthritis Asthma Restless leg syndrome Acute on chronic systolic and diastolic heart failure, NYHA class 3 Anemia Occlusive thrombus Pulmonary edema ROBERT (obstructive sleep apnea) Type 2 diabetes mellitus Hyperlipidemia Hypertension A-V fistula ESRD on dialysis Falling Family History Family History Father No problems noted. Mother No problems noted. Family history of problems with anesthesia: No Surgical History Surgical History Status post creation of pericardial window Hx of right BKA History of transmetatarsal amputation of foot Status post transmetatarsal amputation of right foot Postop check History of surgery H/O colonoscopy Recurrent pleural effusion Pleural effusion on right (07/13/23) History of Problems with Anesthesia: No Social History Social History Household Members: Family Household Members Other:: son Housing: House Are you a primary personal care service provider to a significant other at home: No Do you presently have visiting nurse or other home services: No Unable to assess alcohol history related to: Unknown Alcohol intake: former Comment: 1:1 for SI Patient Tobacco Use Status: Former Tobacco user Tobacco use type: Cigarette Second Hand Smoke Exposure: No Advance Directives Date on File: 10/04/23 service: No Current occupational status: disabled 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 Meds Allergies Allergy/AdvReac Type Severity Reaction Status Date / Time Iodinated Contrast Media Allergy Severe Facial Verified 08/22/24 11:22 (Contrast Dye) Swelling hydralazine AdvReac Severe vasculitis Verified 08/22/24 11:22 Active Medications: Current Medications Acetaminophen (Acetaminophen 325 Mg Tablet) 650 mg PO Q6H PRN PRN Reason: Pain, Mild 1-3,fever,headache Last Admin: 09/13/24 14:55 Dose: 650 mg Albuterol Sulfate (Albuterol Sulfate 90 Mcg 8 Gm Inhaler) 2 puff INHALE Q4H PRN PRN Reason: Wheezing Allopurinol (Allopurinol 100 Mg Tablet) 100 mg PO MOWEFR@1600 [facility] Last Admin: 09/13/24 17:00 Dose: 100 mg Amlodipine Besylate (Amlodipine Besylate 10 Mg Tablet) 10 mg PO DAILY [facility]; Protocol Last Admin: 09/14/24 07:58 Dose: 10 mg Aspirin (Aspirin Enteric Coated 81 Mg Tablet.) 81 mg PO MOWEFR@1600 [facility] Last Admin: 09/13/24 16:59 Dose: 81 mg Aspirin (Aspirin Enteric Coated 81 Mg Tablet.) 81 mg PO SUTUTHSA@0900 [facility] Last Admin: 09/14/24 07:55 Dose: Not Given Atorvastatin Calcium (Atorvastatin Calcium 40 Mg Tablet) 40 mg PO MOWEFR@1600 [facility] Last Admin: 09/13/24 17:00 Dose: 40 mg Atorvastatin Calcium (Atorvastatin Calcium 40 Mg Tablet) 40 mg PO SUTUTHSA@0900 [facility] Last Admin: 09/14/24 07:55 Dose: Not Given Calcium Carbonate (Calcium Carbonate 750 Mg Tab.Chew) 750 mg PO Q4H PRN PRN Reason: Heartburn Carvedilol (Carvedilol 25 Mg Tablet) 25 mg PO BID [facility]; Protocol Last Admin: 09/14/24 07:58 Dose: 25 mg Collagenase (Collagenase Clostridium Hist. 30 Gm Tube) 1 appl TOPICAL DAILY [facility] Last Admin: 09/13/24 17:00 Dose: 1 appl Dextrose (Dextrose 50 % 25 Gm/50 Ml Syringe) 25 gm IVPUSH Q15M PRN; Protocol PRN Reason: per Hypoglycemia Standing Ord. Last Admin: 08/27/24 07:59 Dose: 25 gm Docusate Sodium (Docusate Sodium 100 Mg Capsule) 100 mg PO DAILY [facility] Last Admin: 09/14/24 07:56 Dose: Not Given Doxazosin Mesylate (Doxazosin Mesylate 2 Mg Tablet) 4 mg PO BEDTIME [facility]; Protocol Last Admin: 09/13/24 20:05 Dose: 4 mg Fluticasone/Umeclidinium/Vilanterol (Fluticasone/Umeclidinium/Vilanterol 100/62.5/ Blst.W.Dev) 1 puff INHALE RDAILY [facility] Last Admin: 09/14/24 07:56 Dose: 1 puff Furosemide (Furosemide 40 Mg Tablet) 80 mg PO MOWEFR@1600 [facility]; Protocol Last Admin: 09/13/24 16:59 Dose: 80 mg Furosemide (Furosemide 40 Mg Tablet) 80 mg PO SUTUTHSA@0900 [facility]; Protocol Last Admin: 09/14/24 07:58 Dose: 80 mg Glucose (Glucose Gel 15 Gm Gel..Gram.) 15 gm PO Q15M PRN PRN Reason: per Hypoglycemia Standing Ord. Last Admin: 08/25/24 04:50 Dose: 15 gm Heparin Sodium (Porcine) (Heparin Sodium,Porcine 5,000 Unit/Ml Vial) 5,000 unit SUBCUT Q12H [facility] Last Admin: 09/13/24 22:31 Dose: 5,000 unit Hydrocortisone (Hydrocortisone 1 % Ointment 28.35 Gm Tube) 1 appl TOPICAL BID PRN; Protocol PRN Reason: itching Vancomycin HCl 500 mg/ Sodium (Chloride) 110 mls @ 110 mls/hr IV ONCE ONE Stop: 08/23/24 20:59 Cefepime HCl 1 gm/ Sodium (Chloride) 50 mls @ 100 mls/hr IV Q24H [facility] Last Infusion: 09/13/24 17:38 Dose: Infused Insulin Glargine (Insulin Glargine,Hum.Rec.Anlog 100 Unit/Ml 10 Ml Vial) 10 unit SUBCUT BEDTIME [facility] Last Admin: 09/13/24 21:04 Dose: 10 unit Insulin Human Lispro (Insulin Lispro 100 Unit/Ml 3 Ml Vial) 0 unit SUBCUT QIDACHS [facility]; Protocol Last Admin: 09/14/24 07:35 Dose: Not Given Levetiracetam (Levetiracetam 1,000 Mg Tablet) 1,000 mg PO BID [facility] Last Admin: 09/14/24 07:58 Dose: 1,000 mg Losartan Potassium (Losartan Potassium 50 Mg Tablet) 50 mg PO SUTUTHSA@0900 [facility]; Protocol On Hold: 09/10/24 18:15 Last Admin: 09/10/24 08:22 Dose: 50 mg Losartan Potassium (Losartan Potassium 50 Mg Tablet) 50 mg PO MOWEFR@1600 [facility]; Protocol On Hold: 09/10/24 18:15 Last Admin: 09/09/24 18:11 Dose: Not Given Magnesium Hydroxide (Milk Of Magnesia 30 Ml Oral.Susp) 30 ml PO DAILY PRN PRN Reason: Constipation Last Admin: 09/06/24 17:00 Dose: 30 ml Melatonin (Melatonin 3 Mg Tablet) 6 mg PO BEDTIME PRN PRN Reason: Insomnia Last Admin: 09/13/24 22:31 Dose: 6 mg Naloxone HCl (Naloxone Hcl 0.4 Mg/Ml Vial) 0.04 mg IVPUSH Q5M PRN PRN Reason: Excessive sedation or RR < 8 Naloxone HCl (Naloxone Hcl 0.4 Mg/Ml Vial) 0.04 mg IVPUSH Q5M PRN PRN Reason: Excessive sedation or RR < 8 Omeprazole (Omeprazole 20 Mg Capsule.Dr) 20 mg PO DAILY@0630 [facility] Last Admin: 09/14/24 05:38 Dose: Not Given Ondansetron HCl (Ondansetron Hcl 4 Mg/2 Ml Vial) 4 mg IVPUSH Q8H PRN PRN Reason: Nausea and Vomiting Oxycodone HCl (Oxycodone Hcl Immed Release 5 Mg Tablet) 5 mg PO Q3H PRN PRN Reason: Pain, Severe (Pain Scale 7-10) Last Admin: 09/14/24 08:04 Dose: 5 mg Pharmacy Consult (Consult Rx Vancomycin Dosing) 1 each MISCELLANE DAILY PRN PRN Reason: Consult order Pregabalin (Pregabalin 75 Mg Capsule) 75 mg PO DAILY [facility] Last Admin: 09/14/24 07:56 Dose: Not Given Sevelamer Carbonate (Sevelamer Carbonate Tablet 800 Mg Tablet) 800 mg PO TIDWM [facility] Last Admin: 09/14/24 07:55 Dose: Not Given Sodium Chloride (0.9 % Sodium Chloride Flush 3 Ml Syringe) 3 ml IVFLUSH QSHIFT [facility] Last Admin: 09/14/24 08:02 Dose: 3 ml Home Medications ?Medication ?Instructions ?Recorded ?Confirmed ?Last Taken ?Type allopurinol 100 mg tablet 100 mg PO MOWEFR@159904/19/22 08/22/24 08/21/24 History atorvastatin 40 mg tablet 40 mg PO SUTUTHSA@0904/19/22 08/22/24 08/21/24 History doxazosin 4 mg tablet 4 mg PO BEDTIME 04/19/22 08/22/24 08/21/24 History furosemide 80 mg tablet 80 mg PO SUTUTHSA@0904/19/22 08/22/24 08/21/24 History omeprazole 20 mg capsule,delayed 20 mg PO DAILY@0630 04/19/22 08/22/24 08/21/24 History release aspirin 81 mg tablet,delayed 81 mg PO SUTUTHSA@0906/20/23 08/22/24 08/21/24 History release pregabalin 75 mg capsule 75 mg PO DAILY 06/20/23 08/22/24 08/21/24 History aspirin 81 mg tablet,delayed 81 mg PO MOWEFR@159904/05/24 08/22/24 08/21/24 History release atorvastatin 40 mg tablet 40 mg PO MOWEFR@159904/05/24 08/22/24 08/21/24 History fluticasone fur. 100 mcg-umeclid 1 inh inhalation DAILY 04/05/24 08/22/24 08/21/24 History 62.5 mcg-vilant 25 mcg inhalat.powder (Trelegy Ellipta) furosemide 80 mg tablet 80 mg PO MOWEFR@159904/05/24 08/22/24 08/21/24 History losartan 25 mg tablet 25 mg PO MOWEFR@159904/05/24 08/22/24 08/21/24 History losartan 25 mg tablet 25 mg PO SUTUTHSA@0900 04/05/24 08/22/24 08/21/24 History insulin glargine 100 unit/mL (3 22 unit subcut BEDTIME 05/01/24 08/22/24 08/21/24 History mL) subcutaneous pen (Lantus Solostar U-100 Insulin) acetaminophen 500 mg tablet 1,000 mg PO Q8H PRN Pain 05/26/24 08/22/24 Unknown History amlodipine 10 mg tablet 10 mg PO DAILY 05/26/24 08/22/24 08/21/24 History calcium carbonate (Calcium 500) 500 mg PO TID 05/26/24 08/22/24 08/21/24 History docusate sodium 100 mg capsule 100 mg PO DAILY 05/26/24 08/22/24 08/21/24 History insulin lispro 100 unit/mL See Rx Instructions .Route .COMPLEX 05/26/24 08/22/24 08/21/24 History subcutaneous solution (Humalog U-100 Insulin) albuterol sulfate 90 mcg/actuation 2 puff inhalation Q4H PRN wheezing 08/22/24 08/22/24 Unknown History aerosol inhaler (Ventolin HFA) carvedilol 6.25 mg tablet 6.25 mg PO BID 08/22/24 08/22/24 Unknown History ipratropium 0.5 mg-albuterol 3 mg 3 ml inhalation QID PRN Shortness 08/22/24 08/22/24 08/21/24 History (2.5 mg base)/3 mL nebulization Of Breath soln sucroferric oxyhydroxide 500 mg 500 mg PO TID 08/22/24 08/22/24 08/21/24 History chewable tablet (Velphoro) Exam Height,Weight and Vital Signs: Height 5 ft 4 in Weight 72.2 kg Last Vital Signs Temp 98.1 F 09/14/24 07:21 Pulse 59 09/14/24 07:57 Resp 16 09/14/24 07:57 BP 192/81 H 09/14/24 07:21 Pulse Ox 98 09/14/24 07:21 O2 Del Method Room Air 09/14/24 07:21 O2 Flow Rate 2 09/12/24 16:55 Pertinent Lab Results Pertinent Lab Results: Laboratory Tests 06/08/22/24 08/22/24 11:41 14:20 16:08 WBC 16.3 H RBC 4.98 D Hgb 11.4 L Hct 37.1 L MCV 74.5 L MCH 22.9 L MCHC 30.7 L RDW 19.9 H Plt Count 194 MPV Not Reportable Immature Gran % (Auto) 0.4 Neut % (Auto) 86.4 H Lymph % (Auto) 7.2 L [place] % (Auto) 5.5 Eos % (Auto) 0.3 Baso % (Auto) 0.2 Lymph # (Auto) 1.2 [place] # (Auto) 0.9 Eos # (Auto) 0.1 Baso # (Auto) 0.0 Abs Immat Gran (auto) 0.07 H Absolute Neuts (auto) 14.1 H Absolute Nucleated RBC 0.030 H Nucleated RBC % (auto) 0.2 ESR Hold Purple Top VBG pH VBG pCO2 VBG pO2 VBG HCO3 VBG O2 Saturation VBG Base Excess Sodium 137 Potassium 5.0 Chloride 96 Carbon Dioxide 27 Anion Gap 19 BUN 54 H Creatinine 6.03 H* Estim Creat Clear Calc 10.8 Estimated GFR 9 POC Glucose 381 H* Random Glucose 392 H* Lactic Acid 1.6 Calcium 8.6 Phosphorus Magnesium 1.6 Total Bilirubin 0.5 Direct Bilirubin AST 23 ALT 24 Alkaline Phosphatase 159 H Ammonia C-Reactive Protein 16.41 H Total Protein 7.1 Albumin 3.5 Random Vancomycin 08/22/24 08/22/24 08/22/24 17:11 18:49 21:05 WBC RBC Hgb Hct MCV MCH MCHC RDW Plt Count MPV Immature Gran % (Auto) Neut % (Auto) Lymph % (Auto) [place] % (Auto) Eos % (Auto) Baso % (Auto) Lymph # (Auto) [place] # (Auto) Eos # (Auto) Baso # (Auto) Abs Immat Gran (auto) Absolute Neuts (auto) Absolute Nucleated RBC Nucleated RBC % (auto) ESR Hold Purple Top VBG pH VBG pCO2 VBG pO2 VBG HCO3 VBG O2 Saturation VBG Base Excess Sodium Potassium Chloride Carbon Dioxide Anion Gap BUN Creatinine Estim Creat Clear Calc Estimated GFR POC Glucose 405 H* 179 H 82 Random Glucose Lactic Acid Calcium Phosphorus Magnesium Total Bilirubin Direct Bilirubin AST ALT Alkaline Phosphatase Ammonia C-Reactive Protein Total Protein Albumin Random Vancomycin 0608/23/24 08/23/24 02:46 06:33 06:55 WBC 15.8 H RBC 4.77 Hgb 11.0 L Hct 35.1 L MCV 73.6 L MCH 23.1 L MCHC 31.3 RDW 19.4 H Plt Count 183 MPV Not Reportable Immature Gran % (Auto) Neut % (Auto) Lymph % (Auto) [place] % (Auto) Eos % (Auto) Baso % (Auto) Lymph # (Auto) [place] # (Auto) Eos # (Auto) Baso # (Auto) Abs Immat Gran (auto) Absolute Neuts (auto) Absolute Nucleated RBC 0.020 H Nucleated RBC % (auto) 0.1 ESR Hold Purple Top VBG pH VBG pCO2 VBG pO2 VBG HCO3 VBG O2 Saturation VBG Base Excess Sodium Potassium Chloride Carbon Dioxide Anion Gap BUN Creatinine Estim Creat Clear Calc Estimated GFR POC Glucose 184 H 192 H Random Glucose Lactic Acid Calcium Phosphorus Magnesium Total Bilirubin Direct Bilirubin AST ALT Alkaline Phosphatase Ammonia C-Reactive Protein Total Protein Albumin Random Vancomycin 08/23/24 08/23/24 08/23/24 10:48 11:49 16:05 WBC RBC Hgb Hct MCV MCH MCHC RDW Plt Count MPV Immature Gran % (Auto) Neut % (Auto) Lymph % (Auto) [place] % (Auto) Eos % (Auto) Baso % (Auto) Lymph # (Auto) [place] # (Auto) Eos # (Auto) Baso # (Auto) Abs Immat Gran (auto) Absolute Neuts (auto) Absolute Nucleated RBC Nucleated RBC % (auto) ESR Hold Purple Top VBG pH VBG pCO2 VBG pO2 VBG HCO3 VBG O2 Saturation VBG Base Excess Sodium 136 Potassium 5.6 H Chloride 95 L Carbon Dioxide 25 Anion Gap 22 H BUN 70 H Creatinine 7.76 H* Estim Creat Clear Calc 8.2 Estimated GFR 7 POC Glucose 174 H 190 H Random Glucose 183 H Lactic Acid Calcium 8.6 Phosphorus 7.7 H Magnesium Total Bilirubin Direct Bilirubin AST ALT Alkaline Phosphatase Ammonia C-Reactive Protein Total Protein Albumin Random Vancomycin 08/23/24 08/24/24 08/24/24 20:34 06:33 10:09 WBC 15.9 H RBC 4.59 L Hgb 10.5 L Hct 33.8 L MCV 73.6 L MCH 22.9 L MCHC 31.1 RDW 19.4 H Plt Count 180 MPV Not Reportable Immature Gran % (Auto) 0.5 H Neut % (Auto) 85.0 H Lymph % (Auto) 5.2 L [place] % (Auto) 7.3 Eos % (Auto) 1.8 Baso % (Auto) 0.2 Lymph # (Auto) 0.8 L [place] # (Auto) 1.2 Eos # (Auto) 0.3 Baso # (Auto) 0.0 Abs Immat Gran (auto) 0.08 H Absolute Neuts (auto) 13.5 H Absolute Nucleated RBC 0.030 H Nucleated RBC % (auto) 0.2 ESR Hold Purple Top VBG pH VBG pCO2 VBG pO2 VBG HCO3 VBG O2 Saturation VBG Base Excess Sodium 138 Potassium 4.5 Chloride 97 Carbon Dioxide 27 Anion Gap 19 BUN 56 H Creatinine 6.06 H* Estim Creat Clear Calc 10.6 Estimated GFR 9 POC Glucose 200 H 50 L* Random Glucose 84 Lactic Acid Calcium 8.6 Phosphorus Magnesium Total Bilirubin Direct Bilirubin AST ALT Alkaline Phosphatase Ammonia C-Reactive Protein Total Protein Albumin Random Vancomycin 08/24/24 08/24/24 08/24/24 10:37 10:47 10:58 WBC RBC Hgb Hct MCV MCH MCHC RDW Plt Count MPV Immature Gran % (Auto) Neut % (Auto) Lymph % (Auto) [place] % (Auto) Eos % (Auto) Baso % (Auto) Lymph # (Auto) [place] # (Auto) Eos # (Auto) Baso # (Auto) Abs Immat Gran (auto) Absolute Neuts (auto) Absolute Nucleated RBC Nucleated RBC % (auto) ESR Hold Purple Top VBG pH VBG pCO2 VBG pO2 VBG HCO3 VBG O2 Saturation VBG Base Excess Sodium Potassium Chloride Carbon Dioxide Anion Gap BUN Creatinine Estim Creat Clear Calc Estimated GFR POC Glucose 88 101 Random Glucose Lactic Acid Calcium Phosphorus Magnesium Total Bilirubin Direct Bilirubin AST ALT Alkaline Phosphatase Ammonia C-Reactive Protein Total Protein Albumin Random Vancomycin 16.7 08/24/24 08/24/24 08/24/24 11:38 11:47 15:12 WBC RBC Hgb Hct MCV MCH MCHC RDW Plt Count MPV Immature Gran % (Auto) Neut % (Auto) Lymph % (Auto) [place] % (Auto) Eos % (Auto) Baso % (Auto) Lymph # (Auto) [place] # (Auto) Eos # (Auto) Baso # (Auto) Abs Immat Gran (auto) Absolute Neuts (auto) Absolute Nucleated RBC Nucleated RBC % (auto) ESR Hold Purple Top VBG pH 7.38 VBG pCO2 60 VBG pO2 58 VBG HCO3 36 H VBG O2 Saturation 83.0 VBG Base Excess 9.0 Sodium 140 Potassium 4.1 Chloride 97 Carbon Dioxide 30 H Anion Gap 17 BUN 35 H Creatinine 4.61 H* Estim Creat Clear Calc 13.9 Estimated GFR 13 POC Glucose 63 Random Glucose 101 Lactic Acid Calcium 9.0 Phosphorus Magnesium Total Bilirubin 0.5 Direct Bilirubin 0.3 AST 18 ALT 19 Alkaline Phosphatase 143 H Ammonia 32 C-Reactive Protein Total Protein 7.0 Albumin 3.4 L Random Vancomycin 08/24/24 08/24/24 08/24/24 15:31 15:54 20:26 WBC RBC Hgb Hct MCV MCH MCHC RDW Plt Count MPV Immature Gran % (Auto) Neut % (Auto) Lymph % (Auto) [place] % (Auto) Eos % (Auto) Baso % (Auto) Lymph # (Auto) [place] # (Auto) Eos # (Auto) Baso # (Auto) Abs Immat Gran (auto) Absolute Neuts (auto) Absolute Nucleated RBC Nucleated RBC % (auto) ESR Hold Purple Top VBG pH VBG pCO2 VBG pO2 VBG HCO3 VBG O2 Saturation VBG Base Excess Sodium Potassium Chloride Carbon Dioxide Anion Gap BUN Creatinine Estim Creat Clear Calc Estimated GFR POC Glucose 59 L* 85 100 Random Glucose Lactic Acid Calcium Phosphorus Magnesium Total Bilirubin Direct Bilirubin AST ALT Alkaline Phosphatase Ammonia C-Reactive Protein Total Protein Albumin Random Vancomycin 08/25/24 08/25/24 08/25/24 01:09 04:20 06:00 WBC RBC Hgb Hct MCV MCH MCHC RDW Plt Count MPV Immature Gran % (Auto) Neut % (Auto) Lymph % (Auto) [place] % (Auto) Eos % (Auto) Baso % (Auto) Lymph # (Auto) [place] # (Auto) Eos # (Auto) Baso # (Auto) Abs Immat Gran (auto) Absolute Neuts (auto) Absolute Nucleated RBC Nucleated RBC % (auto) ESR Hold Purple Top VBG pH VBG pCO2 VBG pO2 VBG HCO3 VBG O2 Saturation VBG Base Excess Sodium Potassium Chloride Carbon Dioxide Anion Gap BUN Creatinine Estim Creat Clear Calc Estimated GFR POC Glucose 69 58 L* 102 Random Glucose Lactic Acid Calcium Phosphorus Magnesium Total Bilirubin Direct Bilirubin AST ALT Alkaline Phosphatase Ammonia C-Reactive Protein Total Protein Albumin Random Vancomycin 08/25/24 08/25/24 08/25/24 07:11 07:15 07:40 WBC 13.7 H RBC 4.57 L Hgb 10.6 L Hct 34.0 L MCV 74.4 L MCH 23.2 L MCHC 31.2 RDW 19.3 H Plt Count 164 MPV TNP Immature Gran % (Auto) 0.8 H Neut % (Auto) 81.0 H Lymph % (Auto) 8.6 L [place] % (Auto) 8.4 Eos % (Auto) 1.1 Baso % (Auto) 0.1 Lymph # (Auto) 1.2 [place] # (Auto) 1.2 Eos # (Auto) 0.2 Baso # (Auto) 0.0 Abs Immat Gran (auto) 0.11 H Absolute Neuts (auto) 11.1 H Absolute Nucleated RBC 0.030 H Nucleated RBC % (auto) 0.2 ESR Hold Purple Top VBG pH 7.43 VBG pCO2 47 VBG pO2 64 VBG HCO3 31 H VBG O2 Saturation 88.0 VBG Base Excess 6.3 Sodium 134 L Potassium 5.3 H D Chloride 94 L Carbon Dioxide 27 Anion Gap 18 BUN 49 H Creatinine 5.96 H* Estim Creat Clear Calc 10.8 Estimated GFR 9 POC Glucose 95 Random Glucose 90 Lactic Acid Calcium 8.8 Phosphorus Magnesium Total Bilirubin Direct Bilirubin AST ALT Alkaline Phosphatase Ammonia C-Reactive Protein Total Protein Albumin Random Vancomycin 08/25/24 08/25/24 08/25/24 10:25 13:44 16:31 WBC RBC Hgb Hct MCV MCH MCHC RDW Plt Count MPV Immature Gran % (Auto) Neut % (Auto) Lymph % (Auto) [place] % (Auto) Eos % (Auto) Baso % (Auto) Lymph # (Auto) [place] # (Auto) Eos # (Auto) Baso # (Auto) Abs Immat Gran (auto) Absolute Neuts (auto) Absolute Nucleated RBC Nucleated RBC % (auto) ESR Hold Purple Top VBG pH VBG pCO2 VBG pO2 VBG HCO3 VBG O2 Saturation VBG Base Excess Sodium Potassium Chloride Carbon Dioxide Anion Gap BUN Creatinine Estim Creat Clear Calc Estimated GFR POC Glucose 180 H 168 H 165 H Random Glucose Lactic Acid Calcium Phosphorus Magnesium Total Bilirubin Direct Bilirubin AST ALT Alkaline Phosphatase Ammonia C-Reactive Protein Total Protein Albumin Random Vancomycin 08/25/24 08/26/24 08/26/24 19:56 01:18 04:41 WBC RBC Hgb Hct MCV MCH MCHC RDW Plt Count MPV Immature Gran % (Auto) Neut % (Auto) Lymph % (Auto) [place] % (Auto) Eos % (Auto) Baso % (Auto) Lymph # (Auto) [place] # (Auto) Eos # (Auto) Baso # (Auto) Abs Immat Gran (auto) Absolute Neuts (auto) Absolute Nucleated RBC Nucleated RBC % (auto) ESR Hold Purple Top VBG pH VBG pCO2 VBG pO2 VBG HCO3 VBG O2 Saturation VBG Base Excess Sodium Potassium Chloride Carbon Dioxide Anion Gap BUN Creatinine Estim Creat Clear Calc Estimated GFR POC Glucose 134 H 114 88 Random Glucose Lactic Acid Calcium Phosphorus Magnesium Total Bilirubin Direct Bilirubin AST ALT Alkaline Phosphatase Ammonia C-Reactive Protein Total Protein Albumin Random Vancomycin 08/26/24 08/26/24 08/26/24 07:00 08:49 10:06 WBC 16.4 H RBC 4.62 Hgb 10.7 L Hct 33.6 L MCV 72.7 L MCH 23.2 L MCHC 31.8 RDW 18.8 H Plt Count 178 MPV Not Reportable Immature Gran % (Auto) 0.7 H Neut % (Auto) 82.8 H Lymph % (Auto) 6.7 L [place] % (Auto) 8.6 Eos % (Auto) 1.0 Baso % (Auto) 0.2 Lymph # (Auto) 1.1 L [place] # (Auto) 1.4 H Eos # (Auto) 0.2 Baso # (Auto) 0.0 Abs Immat Gran (auto) 0.12 H Absolute Neuts (auto) 13.5 H Absolute Nucleated RBC 0.000 Nucleated RBC % (auto) 0.0 ESR Hold Purple Top VBG pH VBG pCO2 VBG pO2 VBG HCO3 VBG O2 Saturation VBG Base Excess Sodium 132 L Potassium 6.1 H* Chloride 91 L Carbon Dioxide 24 Anion Gap 23 H BUN 64 H Creatinine 7.92 H* Estim Creat Clear Calc 8.1 Estimated GFR 7 POC Glucose 80 97 Random Glucose 66 Lactic Acid Calcium 8.9 Phosphorus 8.9 H Magnesium Total Bilirubin Direct Bilirubin AST ALT Alkaline Phosphatase Ammonia C-Reactive Protein Total Protein Albumin Random Vancomycin 06/08/26/24 08/26/24 15:25 16:57 19:16 WBC RBC Hgb Hct MCV MCH MCHC RDW Plt Count MPV Immature Gran % (Auto) Neut % (Auto) Lymph % (Auto) [place] % (Auto) Eos % (Auto) Baso % (Auto) Lymph # (Auto) [place] # (Auto) Eos # (Auto) Baso # (Auto) Abs Immat Gran (auto) Absolute Neuts (auto) Absolute Nucleated RBC Nucleated RBC % (auto) ESR Hold Purple Top VBG pH VBG pCO2 VBG pO2 VBG HCO3 VBG O2 Saturation VBG Base Excess Sodium Potassium Chloride Carbon Dioxide Anion Gap BUN Creatinine Estim Creat Clear Calc Estimated GFR POC Glucose 127 H 131 H Random Glucose Lactic Acid Calcium Phosphorus Magnesium Total Bilirubin Direct Bilirubin AST ALT Alkaline Phosphatase Ammonia C-Reactive Protein Total Protein Albumin Random Vancomycin 12.3 L 08/26/24 08/26/24 08/27/24 20:07 22:56 01:20 WBC RBC Hgb Hct MCV MCH MCHC RDW Plt Count MPV Immature Gran % (Auto) Neut % (Auto) Lymph % (Auto) [place] % (Auto) Eos % (Auto) Baso % (Auto) Lymph # (Auto) [place] # (Auto) Eos # (Auto) Baso # (Auto) Abs Immat Gran (auto) Absolute Neuts (auto) Absolute Nucleated RBC Nucleated RBC % (auto) ESR Hold Purple Top VBG pH 7.41 VBG pCO2 51 VBG pO2 73 VBG HCO3 33 H VBG O2 Saturation 92.0 VBG Base Excess 7.1 Sodium Potassium Chloride Carbon Dioxide Anion Gap BUN Creatinine Estim Creat Clear Calc Estimated GFR POC Glucose 121 H 95 Random Glucose Lactic Acid Calcium Phosphorus Magnesium Total Bilirubin Direct Bilirubin AST ALT Alkaline Phosphatase Ammonia C-Reactive Protein Total Protein Albumin Random Vancomycin 08/27/24 08/27/24 08/27/24 03:11 06:07 07:02 WBC 14.6 H RBC 4.55 L Hgb 10.4 L Hct 33.1 L MCV 72.7 L MCH 22.9 L MCHC 31.4 RDW 18.8 H Plt Count 189 MPV Not Reportable Immature Gran % (Auto) Neut % (Auto) Lymph % (Auto) [place] % (Auto) Eos % (Auto) Baso % (Auto) Lymph # (Auto) [place] # (Auto) Eos # (Auto) Baso # (Auto) Abs Immat Gran (auto) Absolute Neuts (auto) Absolute Nucleated RBC 0.000 Nucleated RBC % (auto) 0.0 ESR Hold Purple Top VBG pH VBG pCO2 VBG pO2 VBG HCO3 VBG O2 Saturation VBG Base Excess Sodium 136 Potassium 4.5 D Chloride 96 Carbon Dioxide 25 Anion Gap 20 BUN 37 H Creatinine 5.19 H* Estim Creat Clear Calc 12.4 Estimated GFR 11 POC Glucose 90 75 Random Glucose 76 Lactic Acid Calcium 9.2 Phosphorus Magnesium Total Bilirubin Direct Bilirubin AST ALT Alkaline Phosphatase Ammonia C-Reactive Protein Total Protein Albumin Random Vancomycin 08/27/24 08/27/24 08/27/24 08:36 12:31 16:15 WBC RBC Hgb Hct MCV MCH MCHC RDW Plt Count MPV Immature Gran % (Auto) Neut % (Auto) Lymph % (Auto) [place] % (Auto) Eos % (Auto) Baso % (Auto) Lymph # (Auto) [place] # (Auto) Eos # (Auto) Baso # (Auto) Abs Immat Gran (auto) Absolute Neuts (auto) Absolute Nucleated RBC Nucleated RBC % (auto) ESR Hold Purple Top VBG pH VBG pCO2 VBG pO2 VBG HCO3 VBG O2 Saturation VBG Base Excess Sodium Potassium Chloride Carbon Dioxide Anion Gap BUN Creatinine Estim Creat Clear Calc Estimated GFR POC Glucose 166 H 101 118 H Random Glucose Lactic Acid Calcium Phosphorus Magnesium Total Bilirubin Direct Bilirubin AST ALT Alkaline Phosphatase Ammonia C-Reactive Protein Total Protein Albumin Random Vancomycin 08/27/24 08/27/24 08/28/24 19:41 20:57 01:19 WBC RBC Hgb Hct MCV MCH MCHC RDW Plt Count MPV Immature Gran % (Auto) Neut % (Auto) Lymph % (Auto) [place] % (Auto) Eos % (Auto) Baso % (Auto) Lymph # (Auto) [place] # (Auto) Eos # (Auto) Baso # (Auto) Abs Immat Gran (auto) Absolute Neuts (auto) Absolute Nucleated RBC Nucleated RBC % (auto) ESR Hold Purple Top VBG pH VBG pCO2 VBG pO2 VBG HCO3 VBG O2 Saturation VBG Base Excess Sodium Potassium Chloride Carbon Dioxide Anion Gap BUN Creatinine Estim Creat Clear Calc Estimated GFR POC Glucose 224 H 222 H 278 H Random Glucose Lactic Acid Calcium Phosphorus Magnesium Total Bilirubin Direct Bilirubin AST ALT Alkaline Phosphatase Ammonia C-Reactive Protein Total Protein Albumin Random Vancomycin 08/28/24 08/28/24 08/28/24 01:39 04:28 07:05 WBC 15.0 H RBC 4.59 L Hgb 10.5 L Hct 33.8 L MCV 73.6 L MCH 22.9 L MCHC 31.1 RDW 18.8 H Plt Count 218 MPV Not Reportable Immature Gran % (Auto) Neut % (Auto) Lymph % (Auto) [place] % (Auto) Eos % (Auto) Baso % (Auto) Lymph # (Auto) [place] # (Auto) Eos # (Auto) Baso # (Auto) Abs Immat Gran (auto) Absolute Neuts (auto) Absolute Nucleated RBC 0.000 Nucleated RBC % (auto) 0.0 ESR Hold Purple Top VBG pH VBG pCO2 VBG pO2 VBG HCO3 VBG O2 Saturation VBG Base Excess Sodium 137 Potassium 5.0 Chloride 97 Carbon Dioxide 23 Anion Gap 22 H BUN 56 H Creatinine 7.02 H* Estim Creat Clear Calc 9.1 Estimated GFR 8 POC Glucose 267 H 209 H Random Glucose 243 H Lactic Acid Calcium 8.9 Phosphorus 10.4 H Magnesium Total Bilirubin Direct Bilirubin AST ALT Alkaline Phosphatase Ammonia C-Reactive Protein Total Protein Albumin Random Vancomycin 08/28/24 08/28/24 08/28/24 07:29 11:23 16:15 WBC RBC Hgb Hct MCV MCH MCHC RDW Plt Count MPV Immature Gran % (Auto) Neut % (Auto) Lymph % (Auto) [place] % (Auto) Eos % (Auto) Baso % (Auto) Lymph # (Auto) [place] # (Auto) Eos # (Auto) Baso # (Auto) Abs Immat Gran (auto) Absolute Neuts (auto) Absolute Nucleated RBC Nucleated RBC % (auto) ESR Hold Purple Top VBG pH VBG pCO2 VBG pO2 VBG HCO3 VBG O2 Saturation VBG Base Excess Sodium Potassium Chloride Carbon Dioxide Anion Gap BUN Creatinine Estim Creat Clear Calc Estimated GFR POC Glucose 230 H 224 H 170 H Random Glucose Lactic Acid Calcium Phosphorus Magnesium Total Bilirubin Direct Bilirubin AST ALT Alkaline Phosphatase Ammonia C-Reactive Protein Total Protein Albumin Random Vancomycin 08/28/24 08/28/24 08/28/24 18:16 20:08 23:34 WBC RBC Hgb Hct MCV MCH MCHC RDW Plt Count MPV Immature Gran % (Auto) Neut % (Auto) Lymph % (Auto) [place] % (Auto) Eos % (Auto) Baso % (Auto) Lymph # (Auto) [place] # (Auto) Eos # (Auto) Baso # (Auto) Abs Immat Gran (auto) Absolute Neuts (auto) Absolute Nucleated RBC Nucleated RBC % (auto) ESR Hold Purple Top VBG pH VBG pCO2 VBG pO2 VBG HCO3 VBG O2 Saturation VBG Base Excess Sodium Potassium Chloride Carbon Dioxide Anion Gap BUN Creatinine Estim Creat Clear Calc Estimated GFR POC Glucose 268 H 181 H Random Glucose Lactic Acid Calcium Phosphorus Magnesium Total Bilirubin Direct Bilirubin AST ALT Alkaline Phosphatase Ammonia C-Reactive Protein Total Protein Albumin Random Vancomycin 12.7 L 08/29/24 08/29/24 08/29/24 03:37 06:17 07:22 WBC 13.7 H RBC 4.64 Hgb 10.4 L Hct 34.3 L MCV 73.9 L MCH 22.4 L MCHC 30.3 L RDW 18.8 H Plt Count 241 MPV Not Reportable Immature Gran % (Auto) Neut % (Auto) Lymph % (Auto) [place] % (Auto) Eos % (Auto) Baso % (Auto) Lymph # (Auto) [place] # (Auto) Eos # (Auto) Baso # (Auto) Abs Immat Gran (auto) Absolute Neuts (auto) Absolute Nucleated RBC 0.000 Nucleated RBC % (auto) 0.0 ESR Hold Purple Top VBG pH VBG pCO2 VBG pO2 VBG HCO3 VBG O2 Saturation VBG Base Excess Sodium 138 Potassium 4.3 Chloride 99 Carbon Dioxide 24 Anion Gap 19 BUN 35 H Creatinine 4.94 H* Estim Creat Clear Calc 13.0 Estimated GFR 12 POC Glucose 186 H 137 H Random Glucose 152 H Lactic Acid Calcium 8.8 Phosphorus Magnesium Total Bilirubin Direct Bilirubin AST ALT Alkaline Phosphatase Ammonia C-Reactive Protein Total Protein Albumin Random Vancomycin 08/29/24 08/29/24 08/29/24 11:56 15:31 19:46 WBC RBC Hgb Hct MCV MCH MCHC RDW Plt Count MPV Immature Gran % (Auto) Neut % (Auto) Lymph % (Auto) [place] % (Auto) Eos % (Auto) Baso % (Auto) Lymph # (Auto) [place] # (Auto) Eos # (Auto) Baso # (Auto) Abs Immat Gran (auto) Absolute Neuts (auto) Absolute Nucleated RBC Nucleated RBC % (auto) ESR Hold Purple Top VBG pH VBG pCO2 VBG pO2 VBG HCO3 VBG O2 Saturation VBG Base Excess Sodium Potassium Chloride Carbon Dioxide Anion Gap BUN Creatinine Estim Creat Clear Calc Estimated GFR POC Glucose 236 H 161 H 204 H Random Glucose Lactic Acid Calcium Phosphorus Magnesium Total Bilirubin Direct Bilirubin AST ALT Alkaline Phosphatase Ammonia C-Reactive Protein Total Protein Albumin Random Vancomycin 08/30/24 08/30/24 08/30/24 03:14 06:26 08:10 WBC 14.5 H RBC 4.84 Hgb 11.1 L Hct 35.5 L MCV 73.3 L MCH 22.9 L MCHC 31.3 RDW 18.4 H Plt Count 261 MPV Not Reportable Immature Gran % (Auto) Neut % (Auto) Lymph % (Auto) [place] % (Auto) Eos % (Auto) Baso % (Auto) Lymph # (Auto) [place] # (Auto) Eos # (Auto) Baso # (Auto) Abs Immat Gran (auto) Absolute Neuts (auto) Absolute Nucleated RBC 0.000 Nucleated RBC % (auto) 0.0 ESR Hold Purple Top VBG pH VBG pCO2 VBG pO2 VBG HCO3 VBG O2 Saturation VBG Base Excess Sodium 135 Potassium 4.4 Chloride 97 Carbon Dioxide 24 Anion Gap 18 BUN 51 H Creatinine 6.37 H* Estim Creat Clear Calc 10.1 Estimated GFR 9 POC Glucose 167 H 127 H Random Glucose 145 H Lactic Acid Calcium 8.6 Phosphorus Magnesium Total Bilirubin Direct Bilirubin AST ALT Alkaline Phosphatase Ammonia C-Reactive Protein Total Protein Albumin Random Vancomycin 08/30/24 08/30/24 08/30/24 14:50 18:18 20:39 WBC RBC Hgb Hct MCV MCH MCHC RDW Plt Count MPV Immature Gran % (Auto) Neut % (Auto) Lymph % (Auto) [place] % (Auto) Eos % (Auto) Baso % (Auto) Lymph # (Auto) [place] # (Auto) Eos # (Auto) Baso # (Auto) Abs Immat Gran (auto) Absolute Neuts (auto) Absolute Nucleated RBC Nucleated RBC % (auto) ESR Hold Purple Top VBG pH VBG pCO2 VBG pO2 VBG HCO3 VBG O2 Saturation VBG Base Excess Sodium Potassium Chloride Carbon Dioxide Anion Gap BUN Creatinine Estim Creat Clear Calc Estimated GFR POC Glucose 126 H 415 H* Random Glucose Lactic Acid Calcium Phosphorus Magnesium Total Bilirubin Direct Bilirubin AST ALT Alkaline Phosphatase Ammonia C-Reactive Protein Total Protein Albumin Random Vancomycin 16.6 08/31/24 08/31/24 08/31/24 00:03 03:41 06:39 WBC 18.1 H RBC 4.77 Hgb 10.9 L Hct 34.8 L MCV 73.0 L MCH 22.9 L MCHC 31.3 RDW 18.5 H Plt Count 296 MPV 10.8 Immature Gran % (Auto) Neut % (Auto) Lymph % (Auto) [place] % (Auto) Eos % (Auto) Baso % (Auto) Lymph # (Auto) [place] # (Auto) Eos # (Auto) Baso # (Auto) Abs Immat Gran (auto) Absolute Neuts (auto) Absolute Nucleated RBC 0.000 Nucleated RBC % (auto) 0.0 ESR Hold Purple Top VBG pH VBG pCO2 VBG pO2 VBG HCO3 VBG O2 Saturation VBG Base Excess Sodium 140 Potassium 4.9 Chloride 102 Carbon Dioxide 23 Anion Gap 20 BUN 54 H Creatinine 5.94 H* Estim Creat Clear Calc 10.8 Estimated GFR 10 POC Glucose 276 H 281 H Random Glucose 334 H Lactic Acid Calcium 8.6 Phosphorus Magnesium Total Bilirubin Direct Bilirubin AST ALT Alkaline Phosphatase Ammonia C-Reactive Protein Total Protein Albumin Random Vancomycin 08/31/24 08/31/24 08/31/24 07:26 11:20 15:32 WBC RBC Hgb Hct MCV MCH MCHC RDW Plt Count MPV Immature Gran % (Auto) Neut % (Auto) Lymph % (Auto) [place] % (Auto) Eos % (Auto) Baso % (Auto) Lymph # (Auto) [place] # (Auto) Eos # (Auto) Baso # (Auto) Abs Immat Gran (auto) Absolute Neuts (auto) Absolute Nucleated RBC Nucleated RBC % (auto) ESR Hold Purple Top VBG pH VBG pCO2 VBG pO2 VBG HCO3 VBG O2 Saturation VBG Base Excess Sodium Potassium Chloride Carbon Dioxide Anion Gap BUN Creatinine Estim Creat Clear Calc Estimated GFR POC Glucose 296 H 169 H 197 H Random Glucose Lactic Acid Calcium Phosphorus Magnesium Total Bilirubin Direct Bilirubin AST ALT Alkaline Phosphatase Ammonia C-Reactive Protein Total Protein Albumin Random Vancomycin 08/31/24 09/01/24 09/01/24 21:11 06:23 07:37 WBC 15.9 H RBC 4.66 Hgb 10.7 L Hct 33.8 L MCV 72.5 L MCH 23.0 L MCHC 31.7 RDW 18.2 H Plt Count 314 MPV 10.5 Immature Gran % (Auto) Neut % (Auto) Lymph % (Auto) [place] % (Auto) Eos % (Auto) Baso % (Auto) Lymph # (Auto) [place] # (Auto) Eos # (Auto) Baso # (Auto) Abs Immat Gran (auto) Absolute Neuts (auto) Absolute Nucleated RBC 0.000 Nucleated RBC % (auto) 0.0 ESR Hold Purple Top VBG pH VBG pCO2 VBG pO2 VBG HCO3 VBG O2 Saturation VBG Base Excess Sodium 137 Potassium 4.7 Chloride 101 Carbon Dioxide 20 L Anion Gap 21 H BUN 74 H Creatinine 7.21 H* Estim Creat Clear Calc 8.9 Estimated GFR 8 POC Glucose 228 H 102 Random Glucose 119 H Lactic Acid Calcium 8.8 Phosphorus Magnesium Total Bilirubin Direct Bilirubin AST ALT Alkaline Phosphatase Ammonia C-Reactive Protein Total Protein Albumin Random Vancomycin 09/01/24 09/01/24 09/01/24 10:51 15:39 20:01 WBC RBC Hgb Hct MCV MCH MCHC RDW Plt Count MPV Immature Gran % (Auto) Neut % (Auto) Lymph % (Auto) [place] % (Auto) Eos % (Auto) Baso % (Auto) Lymph # (Auto) [place] # (Auto) Eos # (Auto) Baso # (Auto) Abs Immat Gran (auto) Absolute Neuts (auto) Absolute Nucleated RBC Nucleated RBC % (auto) ESR Hold Purple Top VBG pH VBG pCO2 VBG pO2 VBG HCO3 VBG O2 Saturation VBG Base Excess Sodium Potassium Chloride Carbon Dioxide Anion Gap BUN Creatinine Estim Creat Clear Calc Estimated GFR POC Glucose 157 H 285 H 239 H Random Glucose Lactic Acid Calcium Phosphorus Magnesium Total Bilirubin Direct Bilirubin AST ALT Alkaline Phosphatase Ammonia C-Reactive Protein Total Protein Albumin Random Vancomycin 09/02/24 09/02/24 09/02/24 05:46 07:11 10:59 WBC 16.4 H RBC 4.62 Hgb 10.7 L Hct 34.0 L MCV 73.6 L MCH 23.2 L MCHC 31.5 RDW 18.2 H Plt Count 396 D MPV 11.5 Immature Gran % (Auto) Neut % (Auto) Lymph % (Auto) [place] % (Auto) Eos % (Auto) Baso % (Auto) Lymph # (Auto) [place] # (Auto) Eos # (Auto) Baso # (Auto) Abs Immat Gran (auto) Absolute Neuts (auto) Absolute Nucleated RBC 0.000 Nucleated RBC % (auto) 0.0 ESR 36 H Hold Purple Top VBG pH VBG pCO2 VBG pO2 VBG HCO3 VBG O2 Saturation VBG Base Excess Sodium 135 Potassium 5.4 H Chloride 98 Carbon Dioxide 23 Anion Gap 19 BUN 93 H Creatinine 8.51 H* Estim Creat Clear Calc 7.5 Estimated GFR 6 POC Glucose 92 171 H Random Glucose 95 Lactic Acid Calcium 8.7 Phosphorus Magnesium Total Bilirubin Direct Bilirubin AST ALT Alkaline Phosphatase Ammonia C-Reactive Protein 8.23 H Total Protein Albumin Random Vancomycin 09/02/24 09/02/24 09/02/24 16:15 18:12 20:31 WBC RBC Hgb Hct MCV MCH MCHC RDW Plt Count MPV Immature Gran % (Auto) Neut % (Auto) Lymph % (Auto) [place] % (Auto) Eos % (Auto) Baso % (Auto) Lymph # (Auto) [place] # (Auto) Eos # (Auto) Baso # (Auto) Abs Immat Gran (auto) Absolute Neuts (auto) Absolute Nucleated RBC Nucleated RBC % (auto) ESR Hold Purple Top VBG pH VBG pCO2 VBG pO2 VBG HCO3 VBG O2 Saturation VBG Base Excess Sodium Potassium Chloride Carbon Dioxide Anion Gap BUN Creatinine Estim Creat Clear Calc Estimated GFR POC Glucose 160 H 229 H Random Glucose Lactic Acid Calcium Phosphorus Magnesium Total Bilirubin Direct Bilirubin AST ALT Alkaline Phosphatase Ammonia C-Reactive Protein Total Protein Albumin Random Vancomycin 11.7 L 09/03/24 09/03/24 09/03/24 05:35 07:33 11:13 WBC RBC Hgb Hct MCV MCH MCHC RDW Plt Count MPV Immature Gran % (Auto) Neut % (Auto) Lymph % (Auto) [place] % (Auto) Eos % (Auto) Baso % (Auto) Lymph # (Auto) [place] # (Auto) Eos # (Auto) Baso # (Auto) Abs Immat Gran (auto) Absolute Neuts (auto) Absolute Nucleated RBC Nucleated RBC % (auto) ESR Hold Purple Top SEE NOTE VBG pH VBG pCO2 VBG pO2 VBG HCO3 VBG O2 Saturation VBG Base Excess Sodium 137 Potassium 4.7 Chloride 100 Carbon Dioxide 24 Anion Gap 18 BUN 59 H Creatinine 6.15 H* Estim Creat Clear Calc 10.4 Estimated GFR 9 POC Glucose 150 H 211 H Random Glucose 175 H Lactic Acid Calcium 8.4 Phosphorus Magnesium Total Bilirubin Direct Bilirubin AST ALT Alkaline Phosphatase Ammonia C-Reactive Protein Total Protein Albumin Random Vancomycin 09/03/24 09/03/24 09/04/24 16:13 19:19 05:40 WBC RBC Hgb Hct MCV MCH MCHC RDW Plt Count MPV Immature Gran % (Auto) Neut % (Auto) Lymph % (Auto) [place] % (Auto) Eos % (Auto) Baso % (Auto) Lymph # (Auto) [place] # (Auto) Eos # (Auto) Baso # (Auto) Abs Immat Gran (auto) Absolute Neuts (auto) Absolute Nucleated RBC Nucleated RBC % (auto) ESR Hold Purple Top VBG pH VBG pCO2 VBG pO2 VBG HCO3 VBG O2 Saturation VBG Base Excess Sodium 135 Potassium 6.0 H* D Chloride 99 Carbon Dioxide 23 Anion Gap 19 BUN 77 H Creatinine 7.79 H* Estim Creat Clear Calc 8.2 Estimated GFR 7 POC Glucose 191 H 183 H Random Glucose 187 H Lactic Acid Calcium 9.0 D Phosphorus 4.9 H Magnesium Total Bilirubin Direct Bilirubin AST ALT Alkaline Phosphatase Ammonia C-Reactive Protein Total Protein Albumin Random Vancomycin 09/04/24 09/04/24 09/04/24 07:30 11:04 16:11 WBC RBC Hgb Hct MCV MCH MCHC RDW Plt Count MPV Immature Gran % (Auto) Neut % (Auto) Lymph % (Auto) [place] % (Auto) Eos % (Auto) Baso % (Auto) Lymph # (Auto) [place] # (Auto) Eos # (Auto) Baso # (Auto) Abs Immat Gran (auto) Absolute Neuts (auto) Absolute Nucleated RBC Nucleated RBC % (auto) ESR Hold Purple Top VBG pH VBG pCO2 VBG pO2 VBG HCO3 VBG O2 Saturation VBG Base Excess Sodium Potassium Chloride Carbon Dioxide Anion Gap BUN Creatinine Estim Creat Clear Calc Estimated GFR POC Glucose 146 H 170 H 310 H Random Glucose Lactic Acid Calcium Phosphorus Magnesium Total Bilirubin Direct Bilirubin AST ALT Alkaline Phosphatase Ammonia C-Reactive Protein Total Protein Albumin Random Vancomycin 09/04/24 09/04/24 09/05/24 18:04 19:12 07:25 WBC RBC Hgb Hct MCV MCH MCHC RDW Plt Count MPV Immature Gran % (Auto) Neut % (Auto) Lymph % (Auto) [place] % (Auto) Eos % (Auto) Baso % (Auto) Lymph # (Auto) [place] # (Auto) Eos # (Auto) Baso # (Auto) Abs Immat Gran (auto) Absolute Neuts (auto) Absolute Nucleated RBC Nucleated RBC % (auto) ESR Hold Purple Top VBG pH VBG pCO2 VBG pO2 VBG HCO3 VBG O2 Saturation VBG Base Excess Sodium Potassium Chloride Carbon Dioxide Anion Gap BUN Creatinine Estim Creat Clear Calc Estimated GFR POC Glucose 275 H 166 H Random Glucose Lactic Acid Calcium Phosphorus Magnesium Total Bilirubin Direct Bilirubin AST ALT Alkaline Phosphatase Ammonia C-Reactive Protein Total Protein Albumin Random Vancomycin 12.1 L 09/05/24 09/05/24 09/05/24 11:39 15:23 19:49 WBC RBC Hgb Hct MCV MCH MCHC RDW Plt Count MPV Immature Gran % (Auto) Neut % (Auto) Lymph % (Auto) [place] % (Auto) Eos % (Auto) Baso % (Auto) Lymph # (Auto) [place] # (Auto) Eos # (Auto) Baso # (Auto) Abs Immat Gran (auto) Absolute Neuts (auto) Absolute Nucleated RBC Nucleated RBC % (auto) ESR Hold Purple Top VBG pH VBG pCO2 VBG pO2 VBG HCO3 VBG O2 Saturation VBG Base Excess Sodium Potassium Chloride Carbon Dioxide Anion Gap BUN Creatinine Estim Creat Clear Calc Estimated GFR POC Glucose 171 H 206 H 152 H Random Glucose Lactic Acid Calcium Phosphorus Magnesium Total Bilirubin Direct Bilirubin AST ALT Alkaline Phosphatase Ammonia C-Reactive Protein Total Protein Albumin Random Vancomycin 09/06/24 09/06/24 09/06/24 07:18 11:11 16:11 WBC RBC Hgb Hct MCV MCH MCHC RDW Plt Count MPV Immature Gran % (Auto) Neut % (Auto) Lymph % (Auto) [place] % (Auto) Eos % (Auto) Baso % (Auto) Lymph # (Auto) [place] # (Auto) Eos # (Auto) Baso # (Auto) Abs Immat Gran (auto) Absolute Neuts (auto) Absolute Nucleated RBC Nucleated RBC % (auto) ESR Hold Purple Top VBG pH VBG pCO2 VBG pO2 VBG HCO3 VBG O2 Saturation VBG Base Excess Sodium Potassium Chloride Carbon Dioxide Anion Gap BUN Creatinine Estim Creat Clear Calc Estimated GFR POC Glucose 146 H 133 H 187 H Random Glucose Lactic Acid Calcium Phosphorus Magnesium Total Bilirubin Direct Bilirubin AST ALT Alkaline Phosphatase Ammonia C-Reactive Protein Total Protein Albumin Random Vancomycin 09/06/24 09/06/2409/07/25 18:01 20:02 07:12 WBC RBC Hgb Hct MCV MCH MCHC RDW Plt Count MPV Immature Gran % (Auto) Neut % (Auto) Lymph % (Auto) [place] % (Auto) Eos % (Auto) Baso % (Auto) Lymph # (Auto) [place] # (Auto) Eos # (Auto) Baso # (Auto) Abs Immat Gran (auto) Absolute Neuts (auto) Absolute Nucleated RBC Nucleated RBC % (auto) ESR Hold Purple Top VBG pH VBG pCO2 VBG pO2 VBG HCO3 VBG O2 Saturation VBG Base Excess Sodium Potassium Chloride Carbon Dioxide Anion Gap BUN Creatinine Estim Creat Clear Calc Estimated GFR POC Glucose 91 75 Random Glucose Lactic Acid Calcium Phosphorus Magnesium Total Bilirubin Direct Bilirubin AST ALT Alkaline Phosphatase Ammonia C-Reactive Protein Total Protein Albumin Random Vancomycin 15.8 09/07/24 09/07/24 09/07/24 11:18 16:31 20:08 WBC RBC Hgb Hct MCV MCH MCHC RDW Plt Count MPV Immature Gran % (Auto) Neut % (Auto) Lymph % (Auto) [place] % (Auto) Eos % (Auto) Baso % (Auto) Lymph # (Auto) [place] # (Auto) Eos # (Auto) Baso # (Auto) Abs Immat Gran (auto) Absolute Neuts (auto) Absolute Nucleated RBC Nucleated RBC % (auto) ESR Hold Purple Top VBG pH VBG pCO2 VBG pO2 VBG HCO3 VBG O2 Saturation VBG Base Excess Sodium Potassium Chloride Carbon Dioxide Anion Gap BUN Creatinine Estim Creat Clear Calc Estimated GFR POC Glucose 194 H 138 H 159 H Random Glucose Lactic Acid Calcium Phosphorus Magnesium Total Bilirubin Direct Bilirubin AST ALT Alkaline Phosphatase Ammonia C-Reactive Protein Total Protein Albumin Random Vancomycin 09/08/24 09/08/24 09/08/24 07:33 11:28 16:04 WBC RBC Hgb Hct MCV MCH MCHC RDW Plt Count MPV Immature Gran % (Auto) Neut % (Auto) Lymph % (Auto) [place] % (Auto) Eos % (Auto) Baso % (Auto) Lymph # (Auto) [place] # (Auto) Eos # (Auto) Baso # (Auto) Abs Immat Gran (auto) Absolute Neuts (auto) Absolute Nucleated RBC Nucleated RBC % (auto) ESR Hold Purple Top VBG pH VBG pCO2 VBG pO2 VBG HCO3 VBG O2 Saturation VBG Base Excess Sodium Potassium Chloride Carbon Dioxide Anion Gap BUN Creatinine Estim Creat Clear Calc Estimated GFR POC Glucose 111 147 H 154 H Random Glucose Lactic Acid Calcium Phosphorus Magnesium Total Bilirubin Direct Bilirubin AST ALT Alkaline Phosphatase Ammonia C-Reactive Protein Total Protein Albumin Random Vancomycin 09/08/24 09/09/24 09/09/24 20:32 07:13 11:42 WBC RBC Hgb Hct MCV MCH MCHC RDW Plt Count MPV Immature Gran % (Auto) Neut % (Auto) Lymph % (Auto) [place] % (Auto) Eos % (Auto) Baso % (Auto) Lymph # (Auto) [place] # (Auto) Eos # (Auto) Baso # (Auto) Abs Immat Gran (auto) Absolute Neuts (auto) Absolute Nucleated RBC Nucleated RBC % (auto) ESR Hold Purple Top VBG pH VBG pCO2 VBG pO2 VBG HCO3 VBG O2 Saturation VBG Base Excess Sodium Potassium Chloride Carbon Dioxide Anion Gap BUN Creatinine Estim Creat Clear Calc Estimated GFR POC Glucose 122 H 144 H 138 H Random Glucose Lactic Acid Calcium Phosphorus Magnesium Total Bilirubin Direct Bilirubin AST ALT Alkaline Phosphatase Ammonia C-Reactive Protein Total Protein Albumin Random Vancomycin 09/09/24 09/09/24 09/09/24 13:54 17:54 17:59 WBC RBC Hgb Hct MCV MCH MCHC RDW Plt Count MPV Immature Gran % (Auto) Neut % (Auto) Lymph % (Auto) [place] % (Auto) Eos % (Auto) Baso % (Auto) Lymph # (Auto) [place] # (Auto) Eos # (Auto) Baso # (Auto) Abs Immat Gran (auto) Absolute Neuts (auto) Absolute Nucleated RBC Nucleated RBC % (auto) ESR Hold Purple Top VBG pH VBG pCO2 VBG pO2 VBG HCO3 VBG O2 Saturation VBG Base Excess Sodium Potassium Chloride Carbon Dioxide Anion Gap BUN Creatinine Estim Creat Clear Calc Estimated GFR POC Glucose 130 H 127 H Random Glucose Lactic Acid Calcium Phosphorus Magnesium Total Bilirubin Direct Bilirubin AST ALT Alkaline Phosphatase Ammonia C-Reactive Protein Total Protein Albumin Random Vancomycin 11.7 L 09/09/24 09/10/24 09/10/24 20:20 05:16 07:35 WBC 14.1 H RBC 5.22 Hgb 11.8 L Hct 37.8 L MCV 72.4 L MCH 22.6 L MCHC 31.2 RDW 19.0 H Plt Count 262 D MPV Not Reportable Immature Gran % (Auto) 0.6 H Neut % (Auto) 83.5 H Lymph % (Auto) 10.0 L [place] % (Auto) 5.8 Eos % (Auto) 0.0 Baso % (Auto) 0.1 Lymph # (Auto) 1.4 [place] # (Auto) 0.8 Eos # (Auto) 0.0 Baso # (Auto) 0.0 Abs Immat Gran (auto) 0.08 H Absolute Neuts (auto) 11.8 H Absolute Nucleated RBC 0.000 Nucleated RBC % (auto) 0.0 ESR Hold Purple Top VBG pH VBG pCO2 VBG pO2 VBG HCO3 VBG O2 Saturation VBG Base Excess Sodium 135 Potassium 6.3 H* Chloride 97 Carbon Dioxide 20 L Anion Gap 24 H BUN 59 H Creatinine 7.07 H* Estim Creat Clear Calc 9.1 Estimated GFR 8 POC Glucose 148 H 153 H Random Glucose 117 H Lactic Acid Calcium 9.7 D Phosphorus 8.0 H Magnesium Total Bilirubin Direct Bilirubin AST ALT Alkaline Phosphatase Ammonia C-Reactive Protein Total Protein Albumin Random Vancomycin 09/10/24 09/10/24 09/10/24 10:12 11:23 16:17 WBC RBC Hgb Hct MCV MCH MCHC RDW Plt Count MPV Immature Gran % (Auto) Neut % (Auto) Lymph % (Auto) [place] % (Auto) Eos % (Auto) Baso % (Auto) Lymph # (Auto) [place] # (Auto) Eos # (Auto) Baso # (Auto) Abs Immat Gran (auto) Absolute Neuts (auto) Absolute Nucleated RBC Nucleated RBC % (auto) ESR Hold Purple Top VBG pH VBG pCO2 VBG pO2 VBG HCO3 VBG O2 Saturation VBG Base Excess Sodium Potassium 5.8 H Chloride Carbon Dioxide Anion Gap BUN Creatinine Estim Creat Clear Calc Estimated GFR POC Glucose 271 H 248 H Random Glucose Lactic Acid Calcium Phosphorus Magnesium Total Bilirubin Direct Bilirubin AST ALT Alkaline Phosphatase Ammonia C-Reactive Protein Total Protein Albumin Random Vancomycin 09/10/24 09/10/24 09/11/24 19:08 20:18 06:49 WBC RBC Hgb Hct MCV MCH MCHC RDW Plt Count MPV Immature Gran % (Auto) Neut % (Auto) Lymph % (Auto) [place] % (Auto) Eos % (Auto) Baso % (Auto) Lymph # (Auto) [place] # (Auto) Eos # (Auto) Baso # (Auto) Abs Immat Gran (auto) Absolute Neuts (auto) Absolute Nucleated RBC Nucleated RBC % (auto) ESR Hold Purple Top SEE NOTE VBG pH VBG pCO2 VBG pO2 VBG HCO3 VBG O2 Saturation VBG Base Excess Sodium 137 139 Potassium 6.1 H* 4.5 D Chloride 98 100 Carbon Dioxide 21 L 22 Anion Gap 24 H 22 H BUN 75 H 63 H Creatinine 8.43 H* 6.96 H* Estim Creat Clear Calc 7.6 9.2 Estimated GFR 6 8 POC Glucose 197 H Random Glucose 151 H 131 H Lactic Acid Calcium 9.4 9.5 Phosphorus Magnesium Total Bilirubin Direct Bilirubin AST ALT Alkaline Phosphatase Ammonia C-Reactive Protein Total Protein Albumin Random Vancomycin 09/11/24 09/11/24 09/11/24 10:34 11:10 16:12 WBC RBC Hgb Hct MCV MCH MCHC RDW Plt Count MPV Immature Gran % (Auto) Neut % (Auto) Lymph % (Auto) [place] % (Auto) Eos % (Auto) Baso % (Auto) Lymph # (Auto) [place] # (Auto) Eos # (Auto) Baso # (Auto) Abs Immat Gran (auto) Absolute Neuts (auto) Absolute Nucleated RBC Nucleated RBC % (auto) ESR Hold Purple Top VBG pH VBG pCO2 VBG pO2 VBG HCO3 VBG O2 Saturation VBG Base Excess Sodium Potassium Chloride Carbon Dioxide Anion Gap BUN Creatinine Estim Creat Clear Calc Estimated GFR POC Glucose 114 112 333 H Random Glucose Lactic Acid Calcium Phosphorus Magnesium Total Bilirubin Direct Bilirubin AST ALT Alkaline Phosphatase Ammonia C-Reactive Protein Total Protein Albumin Random Vancomycin 09/11/24 09/11/24 09/12/24 18:07 19:51 07:14 WBC RBC Hgb Hct MCV MCH MCHC RDW Plt Count MPV Immature Gran % (Auto) Neut % (Auto) Lymph % (Auto) [place] % (Auto) Eos % (Auto) Baso % (Auto) Lymph # (Auto) [place] # (Auto) Eos # (Auto) Baso # (Auto) Abs Immat Gran (auto) Absolute Neuts (auto) Absolute Nucleated RBC Nucleated RBC % (auto) ESR Hold Purple Top VBG pH VBG pCO2 VBG pO2 VBG HCO3 VBG O2 Saturation VBG Base Excess Sodium Potassium Chloride Carbon Dioxide Anion Gap BUN Creatinine Estim Creat Clear Calc Estimated GFR POC Glucose 240 H 138 H Random Glucose Lactic Acid Calcium Phosphorus Magnesium Total Bilirubin Direct Bilirubin AST ALT Alkaline Phosphatase Ammonia C-Reactive Protein Total Protein Albumin Random Vancomycin 13.3 L 09/12/24 09/12/24 09/12/24 08:34 11:28 20:27 WBC 14.5 H RBC 4.98 Hgb 11.3 L Hct 36.3 L MCV 72.9 L MCH 22.7 L MCHC 31.1 RDW 18.7 H Plt Count 252 MPV Not Reportable Immature Gran % (Auto) Neut % (Auto) Lymph % (Auto) [place] % (Auto) Eos % (Auto) Baso % (Auto) Lymph # (Auto) [place] # (Auto) Eos # (Auto) Baso # (Auto) Abs Immat Gran (auto) Absolute Neuts (auto) Absolute Nucleated RBC 0.000 Nucleated RBC % (auto) 0.0 ESR Hold Purple Top VBG pH VBG pCO2 VBG pO2 VBG HCO3 VBG O2 Saturation VBG Base Excess Sodium 138 Potassium 4.4 Chloride 97 Carbon Dioxide 25 Anion Gap 20 BUN 49 H Creatinine 6.49 H* Estim Creat Clear Calc 9.9 Estimated GFR 9 POC Glucose 119 H 158 H Random Glucose 117 H Lactic Acid Calcium 9.3 Phosphorus Magnesium Total Bilirubin Direct Bilirubin AST ALT Alkaline Phosphatase Ammonia C-Reactive Protein Total Protein Albumin Random Vancomycin 09/13/24 09/13/24 09/13/24 07:09 11:22 16:02 WBC RBC Hgb Hct MCV MCH MCHC RDW Plt Count MPV Immature Gran % (Auto) Neut % (Auto) Lymph % (Auto) [place] % (Auto) Eos % (Auto) Baso % (Auto) Lymph # (Auto) [place] # (Auto) Eos # (Auto) Baso # (Auto) Abs Immat Gran (auto) Absolute Neuts (auto) Absolute Nucleated RBC Nucleated RBC % (auto) ESR Hold Purple Top VBG pH VBG pCO2 VBG pO2 VBG HCO3 VBG O2 Saturation VBG Base Excess Sodium Potassium Chloride Carbon Dioxide Anion Gap BUN Creatinine Estim Creat Clear Calc Estimated GFR POC Glucose 256 H 205 H 226 H Random Glucose Lactic Acid Calcium Phosphorus Magnesium Total Bilirubin Direct Bilirubin AST ALT Alkaline Phosphatase Ammonia C-Reactive Protein Total Protein Albumin Random Vancomycin 09/13/24 09/13/24 09/14/24 18:05 20:28 07:24 WBC RBC Hgb Hct MCV MCH MCHC RDW Plt Count MPV Immature Gran % (Auto) Neut % (Auto) Lymph % (Auto) [place] % (Auto) Eos % (Auto) Baso % (Auto) Lymph # (Auto) [place] # (Auto) Eos # (Auto) Baso # (Auto) Abs Immat Gran (auto) Absolute Neuts (auto) Absolute Nucleated RBC Nucleated RBC % (auto) ESR Hold Purple Top VBG pH VBG pCO2 VBG pO2 VBG HCO3 VBG O2 Saturation VBG Base Excess Sodium Potassium Chloride Carbon Dioxide Anion Gap BUN Creatinine Estim Creat Clear Calc Estimated GFR POC Glucose 220 H 92 Random Glucose Lactic Acid Calcium Phosphorus Magnesium Total Bilirubin Direct Bilirubin AST ALT Alkaline Phosphatase Ammonia C-Reactive Protein Total Protein Albumin Random Vancomycin 13.8 L Airway Mallampati Class: II TM Dist: >3cm Neck ROM: Full Loose/Missing/Broken Teeth: Upper and Lower Heart: RRR Lungs: CTA Assessment and Plan Final Anesthetic Review Family History of Problems with Anesthesia: No History of Problems with Anesthesia: No NPO: Yes ASA Class: IV Final Preanesthetic Review: No Changes in Pt Med Stat Patient Risk: High Procedure Risk: Low Anesthetic Plan Anesthetic Plan: GA Disposition: Standard PACU
--- NOTE | 2024-09-14 09:17 | P.OP_ITS ---
Operative Note Operative Note Date of Service: 09/14/24 Narrative: Operative Note Narrative: Preop diagnosis: 1. Right hand severe peripheral vascular disease and infection now status post transmetacarpal level amputations of the index through small fingers. Postop diagnosis: Same Procedure: 1. Right hand I&D including deep palmar space 2. Shortening of the 3rd and 4th metacarpal shafts to facilitate closure Surgeon: Beatriz Rosales MD Community Living Coach: Bala MONTERO Anesthesia: General Anesthesia Findings: Debridement only of a small amount of nonviable tissue in the palmar aspect of the 3rd metacarpal area. Some fluid came out of the deep palmar space where we had had a significant abscess 2 days ago, but no longer an odor and fluid was much less and much more watery. No evidence of further skin necrosis at this time. Only very minimal bleeding even without the tourniquet up. Implants: None Tourniquet time: 0 minutes EBL: 5.0 ml Specimen: None Drains: None Complications: None Disposition: Brought to the recovery room in stable condition Plan: Admit back to floor to continue IV antibiotics I spoke with family in efforts to help control his diabetes. They will make an effort to stop bringing sugary snacks. Check cultures and adjust antibiotics as necessary. Wound check by ortho on Monday morning. We have him on the OR schedule for Monday for repeat I and D if felt to be necessary for final closure. Indications: The patient is a 69 year old man with severe peripheral vascular disease with necrosis involving the right hand as well as an infection. He is status post trans metacarpal level amputations of the index middle ring and small fingers. . The risks and benefits of operative treatment, including but not limited to risk of damage to blood vessels, nerves, tendons, infection, recurrence, persistent pain or numbness, incomplete resolution of preoperative symptoms, or need for further surgery were discussed with the patient and his son and they wished to proceed with surgery. Procedure: Once consent was obtained patient was brought back to the operating suite and placed in the operating table in a supine position. Anesthesia was administered by the anesthesia team. A tourniquet was applied to the proximal aspect of the right upper extremity and the limb was prepped and draped in a standard surgical fashion. The tourniquet was not inflated The sutures were removed from the amputation site. No further necrosis of skin occurred in the last few days. There was a small amount of devitalized tissue in the volar flap of tissues at about the 3rd metacarpal level and this was sharply debrided with a 15. Blade and tenotomy scissors. There was a small amount of watery purulent fluid coming from the deep palmar space. This is a significant improvement from last time. There was also no odor. I felt that we needed to shorten the 3rd and 4th metacarpals to facilitate closure. I used a bone saw and removed perhaps 8-10 mm from each of these metacarpals while protecting the surrounding soft tissues. The wound was then copiously irrigated with normal saline. In particular we made sure we flushed out the deep palmar space with copious amounts of normal saline. Hemostasis obtained with a brief period of local pressure and bipolar electrocautery. The wound was copiously irrigated with normal saline. The skin edges were reapproximated with 3-0 Prolene suture. The wound was infiltrated with some 0.5% plain Marcaine for postop pain control and a sterile dressing was loosely applied. The patient appears to have tolerated the procedure well and with no complications. The thumb and tissues appeared vascularized conclusion of the case.
--- NOTE | 2024-09-14 09:21 | MHC.SHP ---
Pre-Procedural Eval Section A - 24 Hr Update-Section A only Date of Service: 09/14/24 The patient is an INPATIENT: Yes Changes since office visit: No Cold of Flu in the past 2 weeks, No New Medical Problems, No Changes in Medication and No Patient answered all questions The patient has been examined within 24 hours of the surgical procedure. The History & Physical has been completed within 30 days and I have reviewed it.: Yes Section B - Complete if H&P > 30 days Chief Complaint: Right hand necrosis and infection Allergies: Allergies Allergy/AdvReac Type Severity Reaction Status Date / Time Iodinated Contrast Media Allergy Severe Facial Verified 08/22/24 11:22 (Contrast Dye) Swelling hydralazine AdvReac Severe vasculitis Verified 08/22/24 11:22 Plan I have reviewed the history and physical and performed a pertinent physical examination on my patient. No changes have occurred unless specified. Time Spent With Patient Time: Total time managing care of this patient today ____ minutes.
[2024-09-14 11:34] LABS: Glucose, Whole Blood 65 mg/dL (60-115)
[2024-09-14 12:21] LABS: Glucose, Whole Blood 162 mg/dL (60-115)
[2024-09-14 16:11] LABS: Glucose, Whole Blood 77 mg/dL (60-115)
[2024-09-14] MEDS: Sevelamer Carbonate Tablet 800 MG TABLET PO (17:56)
[2024-09-14 20:47] LABS: Glucose, Whole Blood 255 mg/dL (60-115)
[2024-09-14] MEDS: Insulin Glargine,Hum.rec.anlog 100 UNIT/ML 10 ML VIAL 10 UNIT SUBCUT (20:54)
[2024-09-15] VITALS (8 sets, daily range): BP systolic 130–180; BP diastolic 61–86; PULSE 54–68; RESP 14–18; TEMP 36–36.9; O2SAT 94–100
--- NOTE | 2024-09-15 01:30 | PC.NURSE ---
Pt seen on bed at shift change with family members in room, pt alert and oriented with no complaints presented. right hand seen with bulky dressing CDI. Family left around 1999, pt called for pain meds, previous RN reported giving OXycodone at 1800, ice packs provided for pt, revisited pt at 2030 with 10/10 right hand pain, prn Oxycodone 5 mg po given with good effect, O2 sats noted at routine vitals at 88-91 % RA, pt claimed that he uses O2 a t home at 2L/min via NC, order in, O2at 2L/min via NC placed, O2 ats went to low to mid 90s after.
[2024-09-15] MEDS: oxyCODONE HCl Immed Release 5 MG TABLET PO ×2 (02:55→06:19)
[2024-09-15 07:30] LABS: Glucose, Whole Blood 86 mg/dL (60-115)
[2024-09-15] MEDS: Sevelamer Carbonate Tablet 800 MG TABLET PO ×3 (07:34→16:05)
[2024-09-15] MEDS: 0.9 % Sodium Chloride Flush 3 ML SYRINGE IVFLUSH ×3 (07:37→20:25)
[2024-09-15 07:58] LABS: Hematocrit 36.1 % (42.0-52.0); Hemoglobin 11.2 g/dl (14.0-18.0); Mean Corpuscular HGB Conc 31.0 g/dl (31.0-36.0); Mean Corpuscular Hemoglobin 22.6 pg (27.0-33.0); Mean Corpuscular Volume 72.9 fL (80.0-98.0); NRBC Abs Auto 0.000 X10*3/uL (0.0-0.012); NRBC Pct Auto 0.0 /100WBC (0.0-0.2); Platelet Count 241 X10*3/uL (160-400); Red Blood Count 4.95 X10*6/uL (4.60-5.80); White Blood Count 15.3 X10*3/uL (4.8-10.8)
[2024-09-15 08:15] LABS: Anion Gap 23 (12-20); Blood Urea Nitrogen 77 mg/dL (9-16); Calcium 9.1 mg/dL (8.4-10.2); Carbon Dioxide 21 mmol/L (22-29); Chloride 98 mmol/L (96-108); Creatinine Clr Calc Pharmacy 7.7; Estimated Glomerular Filt Rate 6; Potassium 5.8 mmol/L (3.3-5.1); Sodium 136 mmol/L (135-145)
[2024-09-15] MEDS: Fluticasone/Umeclidinium/Vilanterol 100/62.5/25 BLST.W.DEV 1 PUFF INHALE (08:21)
[2024-09-15] MEDS: Aspirin Enteric Coated 81 MG TABLET.DR PO (08:28)
[2024-09-15] MEDS: oxyCODONE HCl Immed Release 5 MG TABLET 10 MG PO ×2 (09:31→20:24)
--- NOTE | 2024-09-15 10:18 | PM.PNORT ---
Subjective Subjective Date of Service: 09/15/24 Interval history: 69-year-old male status post multiple surgeries over the last 2 weeks for necrotic digits of right hand, most recent revision I and D and revision amputation 09/14/[address] Rosales Patient is resting comfortably in bed No acute events overnight Pain appears well managed No other acute complaints Physical Exam Vital Signs: Vital Signs: Last Vital Signs Temp 97.2 F 09/15/24 07:13 Pulse 68 09/15/24 08:22 Resp 16 09/15/24 08:22 BP 180/77 H 09/15/24 07:13 Pulse Ox 98 09/15/24 07:13 O2 Del Method Nasal Cannula 09/15/24 03:36 O2 Flow Rate 2 09/15/24 03:36 BMI result Body Mass Index 27.3 Extrem: Other: Dressing on right hand clean, dry, intact No surrounding erythema noted Patient is able to flex and extend the remaining digits of the right hand without difficulty Compartments soft, nontender Distal sensation intact Capillary refill brisk Procedures Date of Service Date of Service: 09/15/24 Progress Note: A&P Assessment and plan (1) Necrosis of finger: Status: Acute (2) Dry gangrene: Status: Acute Plan Necrotic index and middle fingers of right hand Plan of care as discussed with both the patient and his son Nestor, who is also his healthcare proxy I educated the patient about the condition. I discussed both operative and nonoperative treatment options. The patient would like to proceed with surgery. The risks and benefits of operative treatment were discussed with the patient and the patient wishes to proceed with surgery. These risks include, but are not limited to, risk of damage to blood vessels, nerves, tendons, infection, recurrence, incomplete relief of preoperative symptoms, persistent pain, possible need for further surgery, and the risks associated with regional blocks and/or anesthesia. Plan is to take the patient to the operating room at some point in the next few weeks for the following procedures: 1. Irrigation and debridement of right hand NPO at midnight Patient will be evaluated tomorrow morning prior to surgery, we will consider potential cancellation of surgery if tissue continues to look viable Continue with all other recommendations per Medicine and other consulting services Time Spent With Patient Time: Total time managing care of this patient today ____ minutes. Quality Stroke Does the patient have a stroke diagnosis?: No VTE Prior VTE?: No VTE Risk Level:: Medical - moderate - high VTE Device Contraindication: Treatment Not Indicated VTE Drug Contraindication: N/A - Med Ordered
[2024-09-15 11:27] LABS: Glucose, Whole Blood 152 mg/dL (60-115)
--- NOTE | 2024-09-15 12:03 | PC.NURSE ---
late entry-744 Pt c/o pain to right hand not relieved by 5mg po oxycodone. Po tylenol given to pt per MAY. Dr Reid notified and will evaluate. 09- Hospital diplomatic interpreter Ed in tro see pt with this RN, Dr Reid and Bala Gtz to discuss pt plan of care. Son present at bedside and all questions answered with diplomatic interpreter. Both pt and son verbalize understanding
--- NOTE | 2024-09-15 14:35 | HO.PM.IMPN ---
Subjective Subjective Date of Service: 09/15/24 Interval History: Dry gangrene/ischemia of R 2nd + 3rd fingers Review of Systems has some pain/soarness surgery area no new c/o Review of Systems: Yes all other systems are reviewed and are negative Physical Exam Vital Signs: Vital Signs: Last Vital Signs Temp 97.4 F 09/15/24 11:34 Pulse 54 09/15/24 11:34 Resp 14 09/15/24 11:34 BP 139/66 09/15/24 11:34 Pulse Ox 94 09/15/24 11:34 O2 Del Method Nasal Cannula 09/15/24 11:34 O2 Flow Rate 2 09/15/24 11:34 BMI result Body Mass Index 27.3 Appearance: Alert.? Oriented X3.? . cvs: rrr, [id number]. res: clear to auscultation ,no rhonchii or wheezing abd: no rebound or guarding ,nt, bs present. ext :Extremities right BKA ,left lower ext -changes similar(please see vascular and wound care note) neuro: axo3 , nonfocal. Objective Data Active Medications Acetaminophen (Acetaminophen 325 Mg Tablet) 975 mg PO Q6H PRN PRN Reason: Pain, Mild 1-3,fever,headache Albuterol Sulfate (Albuterol Sulfate 90 Mcg 8 Gm Inhaler) 2 puff INHALE Q4H PRN PRN Reason: Wheezing Allopurinol (Allopurinol 100 Mg Tablet) 100 mg PO MOWEFR@1600 [facility] Last Admin: 09/13/24 17:00 Dose: 100 mg Documented By: FOREST Amlodipine Besylate (Amlodipine Besylate 10 Mg Tablet) 10 mg PO DAILY [facility]; Protocol Last Admin: 09/15/24 07:34 Dose: 10 mg Documented By: SKYE Aspirin (Aspirin Enteric Coated 81 Mg Tablet.) 81 mg PO MOWEFR@1600 [facility] Last Admin: 09/13/24 16:59 Dose: 81 mg Documented By: FOREST Aspirin (Aspirin Enteric Coated 81 Mg Tablet.) 81 mg PO SUTUTHSA@0900 [facility] Last Admin: 09/15/24 08:28 Dose: 81 mg Documented By: SKYE Atorvastatin Calcium (Atorvastatin Calcium 40 Mg Tablet) 40 mg PO MOWEFR@1600 [facility] Last Admin: 09/13/24 17:00 Dose: 40 mg Documented By: FOREST Atorvastatin Calcium (Atorvastatin Calcium 40 Mg Tablet) 40 mg PO SUTUTHSA@0900 [facility] Last Admin: 09/15/24 08:28 Dose: 40 mg Documented By: SKYE Calcium Carbonate (Calcium Carbonate 750 Mg Tab.Chew) 750 mg PO Q4H PRN PRN Reason: Heartburn Carvedilol (Carvedilol 25 Mg Tablet) 25 mg PO BID [facility]; Protocol Last Admin: 09/15/24 07:33 Dose: 25 mg Documented By: SKYE Collagenase (Collagenase Clostridium Hist. 30 Gm Tube) 1 appl TOPICAL DAILY [facility] Last Admin: 09/15/24 10:13 Dose: 1 appl Documented By: SKYE Dextrose (Dextrose 50 % 25 Gm/50 Ml Syringe) 25 gm IVPUSH Q15M PRN; Protocol PRN Reason: per Hypoglycemia Standing Ord. Last Admin: 09/14/24 11:34 Dose: 25 gm Documented By: JOHN Docusate Sodium (Docusate Sodium 100 Mg Capsule) 100 mg PO DAILY [facility] Last Admin: 09/15/24 07:33 Dose: 100 mg Documented By: SKYE Doxazosin Mesylate (Doxazosin Mesylate 2 Mg Tablet) 4 mg PO BEDTIME [facility]; Protocol Last Admin: 09/14/24 20:39 Dose: 4 mg Documented By: CASTILLashay Fluticasone/Umeclidinium/Vilanterol (Fluticasone/Umeclidinium/Vilanterol 100/62.5/25 Blst.W.Dev) 1 puff INHALE RDAILY [facility] Last Admin: 09/15/24 08:21 Dose: 1 puff Documented By: PATTIE Furosemide (Furosemide 40 Mg Tablet) 80 mg PO MOWEFR@1600 [facility]; Protocol Last Admin: 09/13/24 16:59 Dose: 80 mg Documented By: FOREST Furosemide (Furosemide 40 Mg Tablet) 80 mg PO SUTUTHSA@0900 [facility]; Protocol Last Admin: 09/15/24 08:29 Dose: 80 mg Documented By: SKYE Glucose (Glucose Gel 15 Gm Gel..Gram.) 15 gm PO Q15M PRN PRN Reason: per Hypoglycemia Standing Ord. Last Admin: 08/25/24 04:50 Dose: 15 gm Documented By: HENRIETTA Heparin Sodium (Porcine) (Heparin Sodium,Porcine 5,000 Unit/Ml Vial) 5,000 unit SUBCUT Q12H [facility] Last Admin: 09/15/24 11:46 Dose: 5,000 unit Documented By: SKYE Hydrocortisone (Hydrocortisone 1 % Ointment 28.35 Gm Tube) 1 appl TOPICAL BID PRN; Protocol PRN Reason: itching Vancomycin HCl 500 mg/ Sodium (Chloride) 110 mls @ 110 mls/hr IV ONCE ONE Stop: 08/23/24 20:59 Cefepime HCl 1 gm/ Sodium (Chloride) 50 mls @ 100 mls/hr IV Q24H [facility] Last Infusion: 09/14/24 19:13 Dose: Infused Documented By: TEAGAN Insulin Glargine (Insulin Glargine,Hum.Rec.Anlog 100 Unit/Ml 10 Ml Vial) 10 unit SUBCUT BEDTIME [facility] Last Admin: 09/14/24 20:54 Dose: 10 unit Documented By: TEAGAN Insulin Human Lispro (Insulin Lispro 100 Unit/Ml 3 Ml Vial) 0 unit SUBCUT QIDACHS [facility]; Protocol Last Admin: 09/15/24 11:46 Dose: 2 unit Documented By: SKYE Levetiracetam (Levetiracetam 1,000 Mg Tablet) 1,000 mg PO BID [facility] Last Admin: 09/15/24 07:33 Dose: 1,000 mg Documented By: SKYE Magnesium Hydroxide (Milk Of Magnesia 30 Ml Oral.Susp) 30 ml PO DAILY PRN PRN Reason: Constipation Last Admin: 09/06/24 17:00 Dose: 30 ml Documented By: JAGRUTI Melatonin (Melatonin 3 Mg Tablet) 6 mg PO BEDTIME PRN PRN Reason: Insomnia Last Admin: 09/14/24 23:12 Dose: 6 mg Documented By: TEAGAN Omeprazole (Omeprazole 20 Mg Capsule.) 20 mg PO DAILY@0630 [facility] Last Admin: 09/15/24 05:31 Dose: 20 mg Documented By: TEAGAN Ondansetron HCl (Ondansetron Hcl 4 Mg/2 Ml Vial) 4 mg IVPUSH Q8H PRN PRN Reason: Nausea and Vomiting Oxycodone HCl (Oxycodone Hcl Immed Release 5 Mg Tablet) 10 mg PO Q3H PRN PRN Reason: Pain, Severe (Pain Scale 7-10) Last Admin: 09/15/24 09:31 Dose: 10 mg Documented By: SKYE Pharmacy Consult (Consult Rx Vancomycin Dosing) 1 each MISCELLANE DAILY PRN PRN Reason: Consult order Pregabalin (Pregabalin 75 Mg Capsule) 75 mg PO DAILY [facility] Last Admin: 09/15/24 07:34 Dose: 75 mg Documented By: SKYE Sevelamer Carbonate (Sevelamer Carbonate Tablet 800 Mg Tablet) 800 mg PO TIDWM [facility] Last Admin: 09/15/24 11:46 Dose: 800 mg Documented By: SKYE Sodium Chloride (0.9 % Sodium Chloride Flush 3 Ml Syringe) 3 ml IVFLUSH QSHIFT [facility] Last Admin: 09/15/24 07:37 Dose: 3 ml Documented By: SKYE Labs 09/15/24 07:45 09/15/24 07:45 Labs: Laboratory Results - last 24 hr 09/14/24 09/14/24 09/15/24 16:00 20:38 07:07 MCV MCH MCHC RDW Plt Count MPV Absolute Nucleated RBC Nucleated RBC % (auto) Anion Gap Estim Creat Clear Calc Estimated GFR POC Glucose 77 255 H 86 Random Glucose Calcium 09/15/24 09/15/24 07:45 11:10 MCV 72.9 L MCH 22.6 L MCHC 31.0 RDW 18.4 H Plt Count 241 MPV Not Reportable Absolute Nucleated RBC 0.000 Nucleated RBC % (auto) 0.0 Anion Gap 23 H Estim Creat Clear Calc 7.7 Estimated GFR 6 POC Glucose 152 H Random Glucose 76 Calcium 9.1 Microbiology Microbiology Results: Microbiology 09/12/24 15:30 Gram Stain - Final Hand Right Routine Culture - Preliminary Proteus mirabilis 09/12/24 15:28 Gram Stain - Final Hand Right Routine Culture - Preliminary Proteus mirabilis Gram negative jim Assessment and Plan (1) ESRD needing dialysis: Status: Acute (2) PVD (peripheral vascular disease): Status: Acute Plan 69yo M with DM2, ESRD on HD MWF, PVD, 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 day 9 status post ray resection of right 3rd metacarpal afebrile hand surgery s/p [id number]. also procedures on : surgery on 09/12:1. Left hand necrosis secondary to severe peripheral vascular disease2. Left hand infection 09/14:1. Right hand I&D including deep palmar space, 2. Shortening of the 3rd and 4th metacarpal shafts to facilitate closure . wound culture proteus mirabilis senstive to ceftriaxone plan: pain control adequate vanco trough 13.8 on 09/13. On vancomycin since 08/22 and cefepime 08/31 ,added oxycodone for pain control. in additon seen by dr grajeda:At the current time left lower extremity appears to be stable. It is dry gangrene. vascular would like the hand to be taken care of an resolved prior to consideration of any sort of intervention on the left lower extremity. as per vascular -patient might have a similar situation as the right and may eventually end up with an above-knee amputation. At the current time no signs of infection appears to be dry gangrene. surgery following ESRD on HD with hyperkalemia HD MWF, potassium 5.8 ,given dose of loklemia ,low potassium/phos diet moniter bmp closely nephrology following HTN Acceptable control on current therapies adjust as indicated DM2 No further hypoglycemia. Control ok lispro correctional scale... Adjust as indicated Family was strongly suggested not to bring outside food because that causing fluctuation in the fingersticks as well as its effect on patient care. ? Depression with suicidal ideation: psych eval noted-denies si feels sad , not depressed( refer to psych note from 09/13) Wound care: Turn and Reposition every 2 hours and as needed for patient comfort.? Use pillows or wedges to support off loading positions. Off Load all bony prominences with use of pillows and heel boots if needed.? Apply Preventative foams where needed. ? Monitor for incontinence and moisture control, use barrier creams when needed for prevention and treatment. Provide adequate and supplemental nutrition.? Continue low air loss mattress. When applicable maintain blood glucose levels per Providers order. Left Posterior Calf - Cleanse with normal saline, pat dry. ?Apply barrier to the immediate erin wound, apply thick layer of Santyl to entire wound bed, cover with saline moist gauze, cover with dry gauze, ABD pad and gauze wrap, change Daily. Right AKA site - Cleanse with NS pat dry. Apply skin prep cover wound bed with dry gauze dressing. change every 3 days. Left Great Toe - [place] with Betadine allow to dry. May leave MANGA ARTIST- if drainage occurs cover with dry gauze. [place] Daily. Right Fingers Defer to Surgery team for topical orders. DVT PPx SC heparin In my clinical judgment, the patient requires continued inpatient hospitalization for the following reasons: IV ABX, surgical management Quality Stroke Does the patient have a stroke diagnosis?: No VTE Prior VTE?: No VTE Risk Level:: Medical - moderate - high VTE Device Contraindication: Treatment Not Indicated VTE Drug Contraindication: N/A - Med Ordered
[2024-09-15 15:18] LABS: Potassium 5.1 mmol/L (3.3-5.1)
--- NOTE | 2024-09-15 15:54 | HO.POSTANES ---
Post Anesthesia Evaluation Post Anesthesia Evaluation Date of Service: 09/15/24 Vital Signs: Vital Signs Temp Pulse Resp BP Pulse Ox O2 Del Method O2 Flow Rate 09/15/24 15:21 96.8 F 54 16 130/61 99 Nasal Cannula, Humidified O2 09/15/24 11:34 97.4 F 54 14 139/66 94 Nasal Cannula 2 09/15/24 08:22 68 16 09/15/24 07:13 97.2 F 63 18 180/77 H 98 Nasal Cannula 2 Anesthesia: General LMA Mental Status: Awake Pain Control: Satisfactory Nausea/Vomiting: None Hydration: Adequate Anesthesia-Related Issues: No Anes. Related Issues
[2024-09-15 16:10] LABS: Glucose, Whole Blood 120 mg/dL (60-115)
[2024-09-15 20:36] LABS: Glucose, Whole Blood 203 mg/dL (60-115)
[2024-09-15] MEDS: Insulin Glargine,Hum.rec.anlog 100 UNIT/ML 10 ML VIAL 10 UNIT SUBCUT (20:52)
[2024-09-16] VITALS (9 sets, daily range): BP systolic 131–169; BP diastolic 55–77; PULSE 56–82; RESP 12–18; TEMP 36.4–36.9; O2SAT 93–100
[2024-09-16] MEDS: oxyCODONE HCl Immed Release 5 MG TABLET 10 MG PO ×5 (05:55→22:29)
[2024-09-16 06:18] LABS: Anion Gap 25 (12-20); Blood Urea Nitrogen 89 mg/dL (9-16); Calcium 9.0 mg/dL (8.4-10.2); Carbon Dioxide 21 mmol/L (22-29); Chloride 94 mmol/L (96-108); Creatinine Clr Calc Pharmacy 6.6; Estimated Glomerular Filt Rate 5; Potassium 6.3 mmol/L (3.3-5.1); Sodium 134 mmol/L (135-145)
--- NOTE | 2024-09-16 06:18 | PM.EVENT ---
Event Note Date of Service: 09/16/24 Event Note: Lab reported hyperkalemia: Potassium 6.3. Will order temporizing measures and Lokelma. Also ordered calcium gluconate. Time Spent With Patient Time: Total time managing care of this patient today ____ minutes.
[2024-09-16] MEDS: Calcium Gluconate/NaCl,Iso-Osm 2 GM/100 ML PLAST..BAG IV (06:44)
--- NOTE | 2024-09-16 07:12 | PC.NURSE ---
Pt had a critical K+=6.3, Dr. Junior aware with orders, Lokelma 1 pack given po, D50 25 gm IVP given, RI 5 units IV given, Calcium Gluconate 2 gms IV started. Pt wheeled up to dialysis unit after at 0650.
[2024-09-16 08:06] LABS: Glucose, Whole Blood 61 mg/dL (60-115)
[2024-09-16] MEDS: 0.9 % Sodium Chloride Flush 3 ML SYRINGE IVFLUSH ×3 (08:22→20:42)
--- NOTE | 2024-09-16 08:29 | PC.NURSE ---
Dr Reid made aware that pt received dose of Lokelma nd is currently in dialysis. Dose of Lokelma that he ordered will be held at this time
[2024-09-16 08:49] LABS: Glucose, Whole Blood 109 mg/dL (60-115)
[2024-09-16] MEDS: Fluticasone/Umeclidinium/Vilanterol 100/62.5/25 BLST.W.DEV 1 PUFF INHALE (09:52)
--- NOTE | 2024-09-16 10:08 | W.PM.DNNEP ---
Subjective Subjective Date of Service: 09/16/24 This patient was seen during dialysis. Interval history: This patient was seen during dialysis. following for management of ESRD on HD while here for treatment of dry gangrene and ischemia of right 2nd and third digits. Pt reports pain in right hand- ongoing surgical interventions for ischemia. patient is resting comfortably during treatment. Physical Exam Vital Signs: Vital Signs: Last Vital Signs Temp 98.2 F 09/16/24 03:39 Pulse 81 09/16/24 09:53 Resp 16 09/16/24 09:53 BP 136/66 09/16/24 03:39 Pulse Ox 99 09/16/24 03:39 O2 Del Method Nasal Cannula 09/16/24 03:39 O2 Flow Rate 1 09/16/24 03:39 BMI result Body Mass Index 27.3 Const: General: alert and awake Resp: Effort & Inspection: normal respiratory effort and able to speak in complete sentences Auscultation: clear to auscultation bilaterally Cardio: Rate: regular rate Rhythm: regular rhythm Heart sounds: S1 normal heart sound present and S2 normal heart sound present GI: Palpation (GI): Soft to palpation and nontender Skin: Wounds: wounds noted (right hand dressing- s/p amp debridement of 2nd/3rd digits. ) Extrem: General: No edema and No pedal edema Assessment & Plan Assessment and plan (1) ESRD needing dialysis: Status: Acute Plan ESRD on HD MWF access: Right permcath appears euvolemic H&H 11.2 & 36- no indication for procrit at this time phos is 8.0- ensure sevelamer 800mg TID with meals. Calcium 9.3. Potassium 6.3 prior to HD- patient has low potassium diet ordered but is also eating food brought in by family, should maintain strict low K diet. low potassium, phosphorous, and sodium diet fluid restriction 1.5L continue to monitor electrolytes renal function studies daily blood pressures elevated- will consider lowering dry weight if persistent will continue to follow Discussed with Dr Jimenez Time Spent With Patient Time: Total time managing care of this patient today ____ minutes. Procedures Date of Service Date of Service: 09/16/24
--- NOTE | 2024-09-16 10:49 | PC.NURSE ---
late entry- 816- Pt seen in dialysis. Drowsy but arousable. Able to answer questions about mentation. Denied pain at this time. POC 61- amp D50 IV given per hypoglycemia protocol. Pt NPO at this time. POC recheck at [address] Reid aware. Javy dressing to right hand intact. Dressing to LLE and r stump intact. Will continue to monitor
[2024-09-16 11:51] LABS: Glucose, Whole Blood 93 mg/dL (60-115)
--- NOTE | 2024-09-16 13:47 | MHC.SHP ---
Pre-Procedural Eval Section A - 24 Hr Update-Section A only Date of Service: 09/16/24 The patient is an INPATIENT: Yes Changes since office visit: No Cold of Flu in the past 2 weeks, No New Medical Problems, No Changes in Medication and No Patient answered all questions The patient has been examined within 24 hours of the surgical procedure. The History & Physical has been completed within 30 days and I have reviewed it.: Yes Section B - Complete if H&P > 30 days Chief Complaint: Right hand necrosis and infection Allergies: Allergies Allergy/AdvReac Type Severity Reaction Status Date / Time Iodinated Contrast Media Allergy Severe Facial Verified 08/22/24 11:22 (Contrast Dye) Swelling hydralazine AdvReac Severe vasculitis Verified 08/22/24 11:22 Plan I have reviewed the history and physical and performed a pertinent physical examination on my patient. No changes have occurred unless specified. Time Spent With Patient Time: Total time managing care of this patient today ____ minutes.
--- NOTE | 2024-09-16 13:48 | W.PM.OPN ---
Operative Note Operative Note Date of Service: 09/16/24 Narrative: Operative Note Narrative: Preop diagnosis: 1. Right hand severe peripheral vascular disease status post I and D and trans metacarpal level amputations at the index middle ring and small fingers Postop diagnosis: Same Procedure: 1. Right hand I&D of soft tissue and bone 2. Revision amputation of the right 2nd and 3rd metacarpal legs to facilitate closure without tension Surgeon: Beatriz Rosales MD Associate Professor Of Biology: Bala MONTERO Anesthesia: General Anesthesia [plus regional block] Findings: Small amount of watery cloudy fluid from deep palmar space. Small amount of nonviable tissue in the volar flap in line with the 3rd metacarpal Implants: None Tourniquet time: 0 minutes EBL: 5.0 ml Specimen: Cultures taken of cloudy fluid from deep palmar space Drains: 1 loop of half-inch iodoform gauze Complications: None Disposition: Brought to the recovery room in stable condition Plan: Admit back to floor for continued IV antibiotics Check cultures and adjust as indicated Wound check by ortho in 1-2 days I talked with the patient's son about the patient being a full code. I asked him to talk with Dr. Reid or the hospitalist team about under what circumstances the patient in his family would want him to be resuscitated. Indications: The patient is a 69 year old man with severe peripheral vascular disease, status post multiple I and D's and most recently an amputation through the metacarpal shafts of the 2nd 3rd 4th and 5th metacarpals. . The risks and benefits of operative treatment, including but not limited to risk of damage to blood vessels, nerves, tendons, infection, recurrence, persistent pain or numbness, incomplete resolution of preoperative symptoms, or need for further surgery were discussed with the patient and his son and they wished to proceed with surgery. Procedure: Once consent was obtained patient was brought back to the operating suite and placed in the operating table in a supine position. A regional block was performed by the anesthesia team. Anesthesia was administered by the anesthesia team. A tourniquet was applied to the proximal aspect of the right upper extremity and the limb was prepped and draped in a standard surgical fashion. The tourniquet was not inflated. The sutures were removed and the wound thoroughly inspected. There was a small amount of watery cloudy fluid that came out of the deep palmar space. There was also a small amount of new nonviable tissue in the volar flap in line with the 3rd metacarpal. Otherwise, the tissues appeared to be viable upon evaluation today. I placed a culture swab into the deep palmar space and sent it for cultures. I copiously irrigated the wound include deep palmar space. I then revised the amputation levels of the 2nd and 3rd metacarpals shortening each of them about a cm to decrease tension upon closing the wound. This was done with a bone saw under direct visualization. A 15. Blade and some small Metzenbaum scissors were used to debride the volar flap of nonviable tissue. The skin edges were also freshened up using a 15. Blade and iris scissors where deemed necessary to facilitate wound healing. Again the small arteries were noted to be calcified. Hemostasis obtained with a brief period of local pressure and bipolar electrocautery. The wound was again copiously irrigated with normal saline. I placed 1 loop of half-inch iodoform gauze into the deep palmar space. The skin edges were reapproximated with 3-0 nylon suture, leaving a small opening for the iodoform gauze to allow drainage and for removal of the iodoform gauze. A sterile dressing was loosely applied. The patient appears to have tolerated the procedure well and with no complications.
--- NOTE | 2024-09-16 13:49 | MHC.CM.PN ---
Per MD rounds patient is not cleared for discharge today. He received HD this am. He was transferred to the O.R. when he returned from HD. He is scheduled for a 2nd Washout today. DP Home with resumption of [facility] services. Patient son will provide transportation home.
--- NOTE | 2024-09-16 14:08 | HO.PM.IMPN ---
Subjective Subjective Date of Service: 09/16/24 Interval History: Dry gangrene/ischemia of R 2nd + 3rd fingers, hyperkalemia Review of Systems has some pain/soarness surgery area no new c/o Physical Exam Vital Signs: Vital Signs: Last Vital Signs Temp 98.3 F 09/16/24 12:00 Pulse 67 09/16/24 12:00 Resp 16 09/16/24 12:00 BP 131/55 L 09/16/24 12:00 Pulse Ox 94 09/16/24 12:00 O2 Del Method Room Air 09/16/24 12:00 O2 Flow Rate 1 09/16/24 03:39 BMI result Body Mass Index 27.3 Appearance: Alert.? Oriented X3.? . cvs: rrr, [id number]. res: clear to auscultation ,no rhonchii or wheezing abd: no rebound or guarding ,nt, bs present. ext :Extremities right BKA ,left lower ext -changes similar(please see vascular and wound care note) neuro: axo3 , nonfocal. Objective Data Active Medications Acetaminophen (Acetaminophen 325 Mg Tablet) 975 mg PO Q6H PRN PRN Reason: Pain, Mild 1-3,fever,headache Albuterol Sulfate (Albuterol Sulfate 90 Mcg 8 Gm Inhaler) 2 puff INHALE Q4H PRN PRN Reason: Wheezing Allopurinol (Allopurinol 100 Mg Tablet) 100 mg PO MOWEFR@1600 [facility] Last Admin: 09/13/24 17:00 Dose: 100 mg Documented By: FOREST Amlodipine Besylate (Amlodipine Besylate 10 Mg Tablet) 10 mg PO DAILY [facility]; Protocol Last Admin: 09/16/24 11:57 Dose: Not Given Documented By: ROXANNE Non-Admin Reason: NPO Aspirin (Aspirin Enteric Coated 81 Mg Tablet.) 81 mg PO MOWEFR@1600 [facility] Last Admin: 09/13/24 16:59 Dose: 81 mg Documented By: FOREST Aspirin (Aspirin Enteric Coated 81 Mg Tablet.) 81 mg PO SUTUTHSA@0900 [facility] Last Admin: 09/15/24 08:28 Dose: 81 mg Documented By: SKYE Atorvastatin Calcium (Atorvastatin Calcium 40 Mg Tablet) 40 mg PO MOWEFR@1600 [facility] Last Admin: 09/13/24 17:00 Dose: 40 mg Documented By: FOREST Atorvastatin Calcium (Atorvastatin Calcium 40 Mg Tablet) 40 mg PO SUTUTHSA@0900 [facility] Last Admin: 09/15/24 08:28 Dose: 40 mg Documented By: SKYE Calcium Carbonate (Calcium Carbonate 750 Mg Tab.Chew) 750 mg PO Q4H PRN PRN Reason: Heartburn Carvedilol (Carvedilol 25 Mg Tablet) 25 mg PO BID [facility]; Protocol Last Admin: 09/16/24 11:57 Dose: Not Given Documented By: ROXANNE Non-Admin Reason: NPO Ceftriaxone Sodium (Ceftriaxone Sodium 1 Gm Vial) 1 gm IVPUSH Q24H [facility] Last Admin: 09/16/24 12:02 Dose: 1 gm Documented By: ROXANNE Collagenase (Collagenase Clostridium Hist. 30 Gm Tube) 1 appl TOPICAL DAILY [facility] Last Admin: 09/16/24 12:03 Dose: 1 appl Documented By: ROXANNE Dextrose (Dextrose 50 % 25 Gm/50 Ml Syringe) 25 gm IVPUSH Q15M PRN; Protocol PRN Reason: per Hypoglycemia Standing Ord. Last Admin: 09/16/24 08:17 Dose: 25 gm Documented By: SKYE Docusate Sodium (Docusate Sodium 100 Mg Capsule) 100 mg PO DAILY [facility] Last Admin: 09/16/24 08:37 Dose: Not Given Documented By: SKYE Non-Admin Reason: NPO Doxazosin Mesylate (Doxazosin Mesylate 2 Mg Tablet) 4 mg PO BEDTIME [facility]; Protocol Last Admin: 09/15/24 20:25 Dose: 4 mg Documented By: CASTSUKHI Droperidol (Droperidol 5 Mg/2 Ml Vial) 0.625 mg IVPUSH ONCE PRN PRN Reason: intractable nausea Stop: 09/16/24 19:02 Fentanyl (Fentanyl Citrate/Pf 100 Mcg/2 Ml Vial) 25 mcg IVPUSH Q5M PRN PRN Reason: Pain, Moderate to Severe (Pain Scale 4-10) Stop: 09/16/24 19:02 Fluticasone/Umeclidinium/Vilanterol (Fluticasone/Umeclidinium/Vilanterol 100/62.5/25 Blst.W.Dev) 1 puff INHALE RDAILY [facility] Last Admin: 09/16/24 09:52 Dose: 1 puff Documented By: MINNA Furosemide (Furosemide 40 Mg Tablet) 80 mg PO MOWEFR@1600 [facility]; Protocol Last Admin: 09/13/24 16:59 Dose: 80 mg Documented By: FOREST Furosemide (Furosemide 40 Mg Tablet) 80 mg PO SUTUTHSA@0900 [facility]; Protocol Last Admin: 09/15/24 08:29 Dose: 80 mg Documented By: SKYE Glucose (Glucose Gel 15 Gm Gel..Gram.) 15 gm PO Q15M PRN PRN Reason: per Hypoglycemia Standing Ord. Last Admin: 08/25/24 04:50 Dose: 15 gm Documented By: HENRIETTA Heparin Sodium (Porcine) (Heparin Sodium,Porcine 5,000 Unit/Ml Vial) 5,000 unit SUBCUT Q12H [facility] Last Admin: 09/16/24 12:02 Dose: 5,000 unit Documented By: ROXANNE Hydrocortisone (Hydrocortisone 1 % Ointment 28.35 Gm Tube) 1 appl TOPICAL BID PRN; Protocol PRN Reason: itching Vancomycin HCl 500 mg/ Sodium (Chloride) 110 mls @ 110 mls/hr IV ONCE ONE Stop: 08/23/24 20:59 Insulin Glargine (Insulin Glargine,Hum.Rec.Anlog 100 Unit/Ml 10 Ml Vial) 10 unit SUBCUT BEDTIME [facility] Last Admin: 09/15/24 20:52 Dose: 10 unit Documented By: KELBYILLashay Insulin Human Lispro (Insulin Lispro 100 Unit/Ml 3 Ml Vial) 0 unit SUBCUT QIDACHS [facility]; Protocol Last Admin: 09/16/24 11:48 Dose: Not Given Documented By: JAYME Non-Admin Reason: No Insulin Coverage Levetiracetam (Levetiracetam 1,000 Mg Tablet) 1,000 mg PO BID [facility] Last Admin: 09/16/24 12:03 Dose: 1,000 mg Documented By: ROXANNE Magnesium Hydroxide (Milk Of Magnesia 30 Ml Oral.Susp) 30 ml PO DAILY PRN PRN Reason: Constipation Last Admin: 09/06/24 17:00 Dose: 30 ml Documented By: COLBURJoey Melatonin (Melatonin 3 Mg Tablet) 6 mg PO BEDTIME PRN PRN Reason: Insomnia Last Admin: 09/15/24 22:21 Dose: 6 mg Documented By: TEAGAN Naloxone HCl (Naloxone Hcl 0.4 Mg/Ml Vial) 0.04 mg IVPUSH Q5M PRN PRN Reason: Excessive sedation or RR < 8 Omeprazole (Omeprazole 20 Mg Capsule.Dr) 20 mg PO DAILY@0630 [facility] Last Admin: 09/16/24 05:34 Dose: Not Given Documented By: TEAGAN Non-Admin Reason: NPO Ondansetron HCl (Ondansetron Hcl 4 Mg/2 Ml Vial) 4 mg IVPUSH Q8H PRN PRN Reason: Nausea and Vomiting Oxycodone HCl (Oxycodone Hcl Immed Release 5 Mg Tablet) 10 mg PO Q3H PRN PRN Reason: Pain, Severe (Pain Scale 7-10) Last Admin: 09/16/24 11:49 Dose: 10 mg Documented By: JAYME Pharmacy Consult (Consult Rx Vancomycin Dosing) 1 each MISCELLANE DAILY PRN PRN Reason: Consult order Pregabalin (Pregabalin 75 Mg Capsule) 75 mg PO DAILY [facility] Last Admin: 09/16/24 12:02 Dose: 75 mg Documented By: ROXANNE Sevelamer Carbonate (Sevelamer Carbonate Tablet 800 Mg Tablet) 800 mg PO TIDWM [facility] Last Admin: 09/16/24 11:58 Dose: Not Given Documented By: ROXANNE Non-Admin Reason: NPO Sodium Chloride (0.9 % Sodium Chloride Flush 3 Ml Syringe) 3 ml IVFLUSH QSHIFT [facility] Last Admin: 09/16/24 08:22 Dose: 3 ml Documented By: SKYE Labs 09/15/24 07:45 09/16/24 05:42 Labs: Laboratory Results - last 24 hr 09/15/24 09/15/24 09/15/24 15:05 16:06 20:33 Hold Purple Top SEE NOTE Anion Gap Estim Creat Clear Calc Estimated GFR POC Glucose 120 H 203 H Random Glucose Calcium Phosphorus 09/16/24 09/16/24 09/16/24 05:42 08:01 08:45 Hold Purple Top SEE NOTE Anion Gap 25 H Estim Creat Clear Calc 6.6 Estimated GFR 5 POC Glucose 61 109 Random Glucose 86 Calcium 9.0 Phosphorus 8.0 H 09/16/24 11:47 Hold Purple Top Anion Gap Estim Creat Clear Calc Estimated GFR POC Glucose 93 Random Glucose Calcium Phosphorus Microbiology Microbiology Results: Microbiology 09/12/24 15:30 Gram Stain - Final Hand Right Routine Culture - Preliminary Proteus mirabilis 09/12/24 15:28 Gram Stain - Final Hand Right Routine Culture - Final Proteus mirabilis Klebsiella oxytoca Assessment and Plan (1) ESRD needing dialysis: Status: Acute (2) PVD (peripheral vascular disease): Status: Acute Plan 69yo M with DM2, ESRD on HD MWF, PVD, 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 day 9 status post ray resection of right 3rd metacarpal afebrile hand surgery s/p i&D009/09:1. Right hand I&D including I and D of 3rd metacarpal bone, and index finger proximal phalanx bone2. Right index finger revision amputation at the proximal phalanx level. also procedures on :surgery on 09/12:1. Left hand necrosis secondary to severe peripheral vascular disease2. Left hand infection 09/14:1. Right hand I&D including deep palmar space, 2. Shortening of the 3rd and 4th metacarpal shafts to facilitate closure . 09/16 -possible Irrigation and debridement of right hand wound culture proteus mirabilis senstive to ceftriaxone plan: pain control adequate vanco trough 13.8 on 09/13. On vancomycin since 08/22 and cefepime 08/31 changed to ceftriaxone 1 gmm q24 ( per wound cultures klebsiella /proteus -both senstive to ceftriaxone), oxycodone for pain control. in additon seen by dr grajeda:At the current time left lower extremity appears to be stable. It is dry gangrene. vascular would like the hand to be taken care of an resolved prior to consideration of any sort of intervention on the left lower extremity. as per vascular -patient might have a similar situation as the right and may eventually end up with an above-knee amputation. At the current time no signs of infection appears to be dry gangrene. surgery following-possible possible Irrigation and debridement of right hand today ESRD on HD with hyperkalemia HD MWF, potassium 6.2 ,given dose of loklemia ,calcium gluconate, getting Hd:moniter vadim closely nephrology following HTN Acceptable control on current therapies Off losartan due to reccurent hyperkalemia DM2 No further hypoglycemia. Control ok lispro correctional scale... Adjust as indicated Family was strongly suggested not to bring outside food because that causing fluctuation in the fingersticks as well as its effect on patient care. ? Depression with suicidal ideation: psych eval noted-denies si feels sad , not depressed( refer to psych note from 09/13) Wound care: Turn and Reposition every 2 hours and as needed for patient comfort.? Use pillows or wedges to support off loading positions. Off Load all bony prominences with use of pillows and heel boots if needed.? Apply Preventative foams where needed. ? Monitor for incontinence and moisture control, use barrier creams when needed for prevention and treatment. Provide adequate and supplemental nutrition.? Continue low air loss mattress. When applicable maintain blood glucose levels per Providers order. Left Posterior Calf - Cleanse with normal saline, pat dry. ?Apply barrier to the immediate erin wound, apply thick layer of Santyl to entire wound bed, cover with saline moist gauze, cover with dry gauze, ABD pad and gauze wrap, change Daily. Right AKA site - Cleanse with NS pat dry. Apply skin prep cover wound bed with dry gauze dressing. change every 3 days. Left Great Toe - [place] with Betadine allow to dry. May leave JARROD- if drainage occurs cover with dry gauze. [place] Daily. Right Fingers Defer to Surgery team for topical orders. DVT PPx SC heparin In my clinical judgment, the patient requires continued inpatient hospitalization for the following reasons: IV ABX, surgical management Quality Stroke Does the patient have a stroke diagnosis?: No VTE Prior VTE?: No VTE Risk Level:: Medical - moderate - high VTE Device Contraindication: Treatment Not Indicated VTE Drug Contraindication: N/A - Med Ordered
--- NOTE | 2024-09-16 15:14 | MHC.SLORD ---
Speech Language Pathology Order Status: Pt transferred to O.R. after HD, GAMEMASTER to see 09/17/24.
[2024-09-16 16:28] LABS: Glucose, Whole Blood 62 mg/dL (60-115)
[2024-09-16 16:56] LABS: Glucose, Whole Blood 155 mg/dL (60-115)
--- NOTE | 2024-09-16 18:57 | HE.PHANOTE ---
VANCO DOSE ADJUSTMENT BASED ON 16.4 DOSE HELD UNTIL NEXT DIALYSIS. NEXT LEVEL 17/ POST DIALYSIS AT 1800
[2024-09-16 20:07] LABS: Glucose, Whole Blood 315 mg/dL (60-115)
[2024-09-16] MEDS: Insulin Glargine,Hum.rec.anlog 100 UNIT/ML 10 ML VIAL 10 UNIT SUBCUT (20:37)
[2024-09-17] VITALS (9 sets, daily range): BP systolic 138–186; BP diastolic 60–84; PULSE 58–72; RESP 16–20; TEMP 36.5–37.2; O2SAT 91–99
[2024-09-17 06:30] LABS: Hematocrit 29.5 % (42.0-52.0); Hemoglobin 9.1 g/dl (14.0-18.0); Mean Corpuscular HGB Conc 30.8 g/dl (31.0-36.0); Mean Corpuscular Hemoglobin 22.6 pg (27.0-33.0); Mean Corpuscular Volume 73.2 fL (80.0-98.0); NRBC Abs Auto 0.000 X10*3/uL (0.0-0.012); NRBC Pct Auto 0.0 /100WBC (0.0-0.2); Platelet Count 237 X10*3/uL (160-400); Red Blood Count 4.03 X10*6/uL (4.60-5.80); White Blood Count 13.8 X10*3/uL (4.8-10.8)
[2024-09-17 07:22] LABS: Glucose, Whole Blood 252 mg/dL (60-115)
[2024-09-17 07:32] LABS: Anion Gap 22 (12-20); Blood Urea Nitrogen 68 mg/dL (9-16); Calcium 8.7 mg/dL (8.4-10.2); Carbon Dioxide 23 mmol/L (22-29); Chloride 96 mmol/L (96-108); Creatinine Clr Calc Pharmacy 8.1; Estimated Glomerular Filt Rate 7; Potassium 6.3 mmol/L (3.3-5.1); Sodium 135 mmol/L (135-145)
--- NOTE | 2024-09-17 08:17 | PC.NURSE ---
BP elevated 186/84 pulse 65 Patient c/o weakness in left hand,occasional twitchin noted left arm, Dr. Reid at bedside aware
--- NOTE | 2024-09-17 08:35 | HO.POSTANES ---
Post Anesthesia Evaluation Post Anesthesia Evaluation Date of Service: 09/17/24 Vital Signs: Vital Signs Temp Pulse Resp BP Pulse Ox O2 Del Method 09/17/24 08:16 65 186/84 H 09/17/24 07:03 98.4 F 67 18 172/79 H 94 Room Air 09/17/24 03:35 98.3 F 67 18 138/68 99 Room Air 09/16/24 23:28 97.6 F 64 18 151/66 H 94 Room Air Anesthesia: Monitored and Nerve Block Mental Status: Awake Pain Control: Satisfactory Nausea/Vomiting: None Hydration: Adequate Anesthesia-Related Issues: No Anes. Related Issues
--- NOTE | 2024-09-17 09:31 | P.PNNP_ITS ---
Subjective Subjective Date of Service: 09/17/24 Interval history: Blood pressures elevated Has had multiple I&D as well as revision amputation of second and third digit of right hand. patient denies concerns/new complaints. Reports he is aware his potassium is high. Reports ongoing hand pain. Denies other new complaints/symptoms. Physical Exam 2 Vital Signs: Vital Signs: Last Vital Signs Temp 98.4 F 09/17/24 07:03 Pulse 67 09/17/24 09:24 Resp 18 09/17/24 07:03 BP 183/79 H 09/17/24 09:24 Pulse Ox 94 09/17/24 07:03 O2 Del Method Room Air 09/17/24 07:03 O2 Flow Rate 1 09/16/24 03:39 BMI result Body Mass Index 27.3 Const: General: alert and awake Resp: Effort & Inspection: normal respiratory effort and able to speak in complete sentences Auscultation: clear to auscultation bilaterally Cardio: Rate: regular rate Rhythm: regular rhythm Heart sounds: S1 normal heart sound present and S2 normal heart sound present GI: Palpation (GI): Soft to palpation and nontender Skin: Wounds: wounds noted (right hand dressing- s/p amp, debridement of 2nd/3rd digits. ) Extrem: General: No edema and No pedal edema Objective Data Labs 09/17/24 05:47 09/17/24 11:13 Labs: Laboratory Results - last 24 hr 09/16/24 09/16/24 09/16/24 11:47 16:18 16:52 WBC RBC Hgb Hct MCV MCH MCHC RDW Plt Count MPV Absolute Nucleated RBC Nucleated RBC % (auto) Sodium Potassium Chloride Carbon Dioxide Anion Gap BUN Creatinine Estim Creat Clear Calc Estimated GFR POC Glucose 93 62 155 H Random Glucose Calcium Random Vancomycin 09/16/24 09/16/24 09/17/24 18:21 20:02 05:47 WBC 13.8 H RBC 4.03 L Hgb 9.1 L Hct 29.5 L MCV 73.2 L MCH 22.6 L MCHC 30.8 L RDW 17.8 H Plt Count 237 MPV TNP Absolute Nucleated RBC 0.000 Nucleated RBC % (auto) 0.0 Sodium 135 Potassium 6.3 H* Chloride 96 Carbon Dioxide 23 Anion Gap 22 H BUN 68 H Creatinine 7.87 H* Estim Creat Clear Calc 8.1 Estimated GFR 7 POC Glucose 315 H Random Glucose 278 H Calcium 8.7 Random Vancomycin 16.4 09/17/24 07:08 WBC RBC Hgb Hct MCV MCH MCHC RDW Plt Count MPV Absolute Nucleated RBC Nucleated RBC % (auto) Sodium Potassium Chloride Carbon Dioxide Anion Gap BUN Creatinine Estim Creat Clear Calc Estimated GFR POC Glucose 252 H Random Glucose Calcium Random Vancomycin Microbiology Microbiology Results: Microbiology 09/16/24 14:26 Hand Right Gram Stain - Final 09/16/24 14:26 Hand Right Routine Culture - Preliminary Culture in progress. 09/12/24 15:30 Hand Right Gram Stain - Final 09/12/24 15:30 Hand Right Routine Culture - Preliminary Proteus mirabilis Citrobacter freundii 09/12/24 15:28 Hand Right Gram Stain - Final 09/12/24 15:28 Hand Right Routine Culture - Final Proteus mirabilis Klebsiella oxytoca 09/09/24 13:00 Finger Gram Stain - Final 09/09/24 13:00 Finger Routine Culture - Final 08/22/24 14:52 Blood - Venous Blood Culture - Final No growth after 5 days. 08/22/24 14:20 Blood - Venous Blood Culture - Final No growth after 5 days. Procedures Date of Service Date of Service: 09/17/24 Assessment & Plan Assessment and plan (1) ESRD needing dialysis: Status: Acute Plan ESRD on HD MWF access: Right permcath appears euvolemic H&H 9.1 & 29.5- had hand surgery yesterday, continue to monitor. phos is 8.0- ensure sevelamer 800mg TID with meals. Calcium 9.3. Potassium 6.3 this a.m. (HD yesterday)- may give lokelma today to lower serum potassium. Discussed adjusting dialysate to 2K for first half of dialysis and 1K for second half of dialysis with HD RN. low potassium, phosphorous, and sodium diet fluid restriction 1.5L continue to monitor electrolytes renal function studies daily blood pressures elevated- will consider lowering dry weight if persistent will continue to follow Discussed with Dr Jimenez Time Spent With Patient Time: Total time managing care of this patient today ____ minutes. Progress Note: Quality Stroke Does the patient have a stroke diagnosis?: No
--- NOTE | 2024-09-17 09:31 | PC.NURSE ---
ok to give coreg and amlodipine now per Dr. Reid
[2024-09-17] MEDS: Sevelamer Carbonate Tablet 800 MG TABLET PO ×3 (10:23→16:42)
[2024-09-17] MEDS: Aspirin Enteric Coated 81 MG TABLET.DR PO (10:24)
[2024-09-17] MEDS: Sodium Bicarbonate 8.4% 50 MEQ in Dextrose 5 % 950 ML IV (10:24)
[2024-09-17] MEDS: Calcium Gluconate/NaCl,Iso-Osm 2 GM/100 ML PLAST..BAG IV (10:31)
[2024-09-17 11:18] LABS: Glucose, Whole Blood 197 mg/dL (60-115)
[2024-09-17 11:35] LABS: Potassium 5.6 mmol/L (3.3-5.1)
--- NOTE | 2024-09-17 13:12 | W.PM.IDCN ---
History of Present Illness Data of Consult Service Date: 09/16/24 Requesting physician: Mya Reid Primary Care Provider: Nonstaff Physician HPI Reason for consult: right hand 2,3 dry gangrene He presents with necrotic areas 2,3 finger right hand. He had revision amputation with Hand Surgery. He has proteus and citrobacter growing from deep wound. Review of Systems Review of Systems: Yes all other systems are reviewed and are negative COUNTS INCLUDE 234 BEDS AT THE [facility] Past Medical History Medical History Above knee amputation of right lower extremity Left ventricular systolic dysfunction (LVSD) PVD (peripheral vascular disease) Postop check Acute pericardial effusion Right sided weakness Dehiscence of wound Peripheral arterial disease Dry gangrene Cellulitis of right foot HFrEF (heart failure with reduced ejection fraction) Chronic combined systolic and diastolic CHF (congestive heart failure) Chronic pericardial effusion Arthritis Asthma Restless leg syndrome Acute on chronic systolic and diastolic heart failure, NYHA class 3 Anemia Occlusive thrombus Pulmonary edema ROBERT (obstructive sleep apnea) Type 2 diabetes mellitus Hyperlipidemia Hypertension A-V fistula ESRD on dialysis Falling Family History Family History Father No problems noted. Mother No problems noted. Family history: reviewed and not pertinent Surgical History Surgical History Status post creation of pericardial window Hx of right BKA History of transmetatarsal amputation of foot Status post transmetatarsal amputation of right foot Postop check History of surgery H/O colonoscopy Recurrent pleural effusion Pleural effusion on right (07/13/23) Social History Social History Household Members: Family Household Members Other:: son Housing: House Are you a primary child care aide to a significant other at home: No Do you presently have visiting nurse or other home services: No Unable to assess alcohol history related to: Unknown Alcohol intake: former Comment: 1:1 for SI Patient Tobacco Use Status: Former Tobacco user Tobacco use type: Cigarette Second Hand Smoke Exposure: No Advance Directives Date on File: 10/04/23 service: No Current occupational status: disabled 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 Meds Allergies Allergy/AdvReac Type Severity Reaction Status Date / Time Iodinated Contrast Media Allergy Severe Facial Verified 08/22/24 11:22 (Contrast Dye) Swelling hydralazine AdvReac Severe vasculitis Verified 08/22/24 11:22 Active Medications: Current Medications Acetaminophen (Acetaminophen 325 Mg Tablet) 975 mg PO Q6H PRN PRN Reason: Pain, Mild 1-3,fever,headache Last Admin: 09/17/24 09:36 Dose: 975 mg Albuterol Sulfate (Albuterol Sulfate 90 Mcg 8 Gm Inhaler) 2 puff INHALE Q4H PRN PRN Reason: Wheezing Allopurinol (Allopurinol 100 Mg Tablet) 100 mg PO MOWEFR@1600 [facility] Last Admin: 09/16/24 17:20 Dose: Not Given Amlodipine Besylate (Amlodipine Besylate 10 Mg Tablet) 10 mg PO DAILY [facility]; Protocol Last Admin: 09/17/24 09:29 Dose: 10 mg Aspirin (Aspirin Enteric Coated 81 Mg Tablet.) 81 mg PO MOWEFR@1600 [facility] Last Admin: 09/16/24 17:20 Dose: Not Given Aspirin (Aspirin Enteric Coated 81 Mg Tablet.) 81 mg PO SUTUTHSA@0900 [facility] Last Admin: 09/17/24 10:24 Dose: 81 mg Atorvastatin Calcium (Atorvastatin Calcium 40 Mg Tablet) 40 mg PO MOWEFR@1600 [facility] Last Admin: 09/16/24 17:20 Dose: Not Given Atorvastatin Calcium (Atorvastatin Calcium 40 Mg Tablet) 40 mg PO SUTUTHSA@0900 [facility] Last Admin: 09/17/24 10:22 Dose: 40 mg Calcium Carbonate (Calcium Carbonate 750 Mg Tab.Chew) 750 mg PO Q4H PRN PRN Reason: Heartburn Carvedilol (Carvedilol 25 Mg Tablet) 25 mg PO BID [facility]; Protocol Last Admin: 09/17/24 09:24 Dose: 25 mg Ceftriaxone Sodium (Ceftriaxone Sodium 1 Gm Vial) 1 gm IVPUSH Q24H [facility] Collagenase (Collagenase Clostridium Hist. 30 Gm Tube) 1 appl TOPICAL DAILY [facility] Last Admin: 09/16/24 12:03 Dose: 1 appl Dextrose (Dextrose 50 % 25 Gm/50 Ml Syringe) 25 gm IVPUSH Q15M PRN; Protocol PRN Reason: per Hypoglycemia Standing Ord. Last Admin: 09/16/24 16:22 Dose: 25 gm Docusate Sodium (Docusate Sodium 100 Mg Capsule) 100 mg PO DAILY [facility] Last Admin: 09/17/24 10:23 Dose: 100 mg Doxazosin Mesylate (Doxazosin Mesylate 2 Mg Tablet) 4 mg PO BEDTIME [facility]; Protocol Last Admin: 09/16/24 20:40 Dose: 4 mg Fluticasone/Umeclidinium/Vilanterol (Fluticasone/Umeclidinium/Vilanterol 100/62.5/25 Blst.W.Dev) 1 puff INHALE RDAILY [facility] Last Admin: 09/17/24 09:06 Dose: Not Given Furosemide (Furosemide 40 Mg Tablet) 80 mg PO MOWEFR@1600 [facility]; Protocol Last Admin: 09/16/24 17:20 Dose: Not Given Furosemide (Furosemide 40 Mg Tablet) 80 mg PO SUTUTHSA@0900 [facility]; Protocol Last Admin: 09/17/24 10:23 Dose: 80 mg Glucose (Glucose Gel 15 Gm Gel..Gram.) 15 gm PO Q15M PRN PRN Reason: per Hypoglycemia Standing Ord. Last Admin: 08/25/24 04:50 Dose: 15 gm Heparin Sodium (Porcine) (Heparin Sodium,Porcine 5,000 Unit/Ml Vial) 5,000 unit SUBCUT Q12H [facility] Last Admin: 09/17/24 11:44 Dose: 5,000 unit Hydrocortisone (Hydrocortisone 1 % Ointment 28.35 Gm Tube) 1 appl TOPICAL BID PRN; Protocol PRN Reason: itching Vancomycin HCl 500 mg/ Sodium (Chloride) 110 mls @ 110 mls/hr IV ONCE ONE Stop: 08/23/24 20:59 Sodium Bicarbonate 50 meq/ (Dextrose) 1,000 mls @ 50 mls/hr IV .Q20H [facility] Last Infusion: 09/17/24 10:32 Dose: 0 mls/hr Insulin Glargine (Insulin Glargine,Hum.Rec.Anlog 100 Unit/Ml 10 Ml Vial) 10 unit SUBCUT BEDTIME [facility] Last Admin: 09/16/24 20:37 Dose: 10 unit Insulin Human Lispro (Insulin Lispro 100 Unit/Ml 3 Ml Vial) 0 unit SUBCUT QIDACHS [facility]; Protocol Last Admin: 09/17/24 11:45 Dose: 2 unit Levetiracetam (Levetiracetam 1,000 Mg Tablet) 1,000 mg PO BID [facility] Last Admin: 09/17/24 10:21 Dose: 1,000 mg Magnesium Hydroxide (Milk Of Magnesia 30 Ml Oral.Susp) 30 ml PO DAILY PRN PRN Reason: Constipation Last Admin: 09/06/24 17:00 Dose: 30 ml Melatonin (Melatonin 3 Mg Tablet) 6 mg PO BEDTIME PRN PRN Reason: Insomnia Last Admin: 09/15/24 22:21 Dose: 6 mg Omeprazole (Omeprazole 20 Mg Capsule.Dr) 20 mg PO DAILY@629 [facility] Last Admin: 09/17/24 06:14 Dose: 20 mg Ondansetron HCl (Ondansetron Hcl 4 Mg/2 Ml Vial) 4 mg IVPUSH Q8H PRN PRN Reason: Nausea and Vomiting Oxycodone HCl (Oxycodone Hcl Immed Release 5 Mg Tablet) 10 mg PO Q3H PRN PRN Reason: Pain, Severe (Pain Scale 7-10) Last Admin: 09/16/24 22:29 Dose: 10 mg Pharmacy Consult (Consult Rx Vancomycin Dosing) 1 each MISCELLANE DAILY PRN PRN Reason: Consult order Pregabalin (Pregabalin 75 Mg Capsule) 75 mg PO DAILY [facility] Last Admin: 09/17/24 10:22 Dose: 75 mg Sevelamer Carbonate (Sevelamer Carbonate Tablet 800 Mg Tablet) 800 mg PO TIDWM [facility] Last Admin: 09/17/24 11:45 Dose: 800 mg Sodium Chloride (0.9 % Sodium Chloride Flush 3 Ml Syringe) 3 ml IVFLUSH QSHIFT [facility] Last Admin: 09/17/24 09:33 Dose: Not Given Home Medications ?Medication ?Instructions ?Recorded ?Confirmed ?Last Taken ?Type allopurinol 100 mg tablet 100 mg PO MOWEFR@1600 04/19/22 08/22/24 08/21/24 History atorvastatin 40 mg tablet 40 mg PO SUTUTHSA@89904/19/22 08/22/24 08/21/24 History doxazosin 4 mg tablet 4 mg PO BEDTIME 04/19/22 08/22/24 08/21/24 History furosemide 80 mg tablet 80 mg PO SUTUTHSA@0904/19/22 08/22/24 08/21/24 History omeprazole 20 mg capsule,delayed 20 mg PO DAILY@30 04/19/22 08/22/24 08/21/24 History release aspirin 81 mg tablet,delayed 81 mg PO SUTUTHSA@0900 06/20/23 08/22/24 08/21/24 History release pregabalin 75 mg capsule 75 mg PO DAILY 06/20/23 08/22/24 08/21/24 History aspirin 81 mg tablet,delayed 81 mg PO MOWEFR@1600 04/05/24 08/22/24 08/21/24 History release atorvastatin 40 mg tablet 40 mg PO MOWEFR@1600 04/05/24 08/22/24 08/21/24 History fluticasone fur. 100 mcg-umeclid 1 inh inhalation DAILY 04/05/24 08/22/24 08/21/24 History 62.5 mcg-vilant 25 mcg inhalat.powder (Trelegy Ellipta) furosemide 80 mg tablet 80 mg PO MOWEFR@1600 04/05/24 08/22/24 08/21/24 History losartan 25 mg tablet 25 mg PO MOWEFR@1600 04/05/24 08/22/24 08/21/24 History losartan 25 mg tablet 25 mg PO SUTUTHSA@0900 04/05/24 08/22/24 08/21/24 History insulin glargine 100 unit/mL (3 22 unit subcut BEDTIME 05/01/24 08/22/24 08/21/24 History mL) subcutaneous pen (Lantus Solostar U-100 Insulin) acetaminophen 500 mg tablet 1,000 mg PO Q8H PRN Pain 05/26/24 08/22/24 Unknown History amlodipine 10 mg tablet 10 mg PO DAILY 05/26/24 08/22/24 08/21/24 History calcium carbonate (Calcium 500) 500 mg PO TID 05/26/24 08/22/24 08/21/24 History docusate sodium 100 mg capsule 100 mg PO DAILY 05/26/24 08/22/24 08/21/24 History insulin lispro 100 unit/mL See Rx Instructions .Route .COMPLEX 05/26/24 08/22/24 08/21/24 History subcutaneous solution (Humalog U-100 Insulin) albuterol sulfate 90 mcg/actuation 2 puff inhalation Q4H PRN wheezing 08/22/24 08/22/24 Unknown History aerosol inhaler (Ventolin HFA) carvedilol 6.25 mg tablet 6.25 mg PO BID 08/22/24 08/22/24 Unknown History ipratropium 0.5 mg-albuterol 3 mg 3 ml inhalation QID PRN Shortness 08/22/24 08/22/24 08/21/24 History (2.5 mg base)/3 mL nebulization Of Breath soln sucroferric oxyhydroxide 500 mg 500 mg PO TID 08/22/24 08/22/24 08/21/24 History chewable tablet (Velphoro) Physical Exam Vital Signs: Vital Signs: Last Vital Signs Temp 99.0 F 09/17/24 13:01 Pulse 64 09/17/24 13:01 Resp 18 09/17/24 13:01 BP 146/72 H 09/17/24 13:01 Pulse Ox 92 09/17/24 13:01 O2 Del Method Room Air 09/17/24 13:01 O2 Flow Rate 1 09/16/24 03:39 BMI result Body Mass Index 27.3 Extrem: Other: wrapped right hand ,right stump BKA wrapped. left leg midshin eschars wrapped Results Labs 09/17/24 05:47 09/17/24 11:13 Labs: Short CBC 09/17/24 Range/Units 05:47 WBC 13.8 H (4.8-10.8) X10*3/uL Hgb 9.1 L (14.0-18.0) g/dl Hct 29.5 L (42.0-52.0) % Plt Count 237 (160-400) X10*3/uL BMP 09/17/24 09/17/24 05:47 11:13 Sodium 135 Potassium 6.3 H* 5.6 H Chloride 96 Carbon Dioxide 23 BUN 68 H Creatinine 7.87 H* Calcium 8.7 Microbiology Microbiology Results: Microbiology 09/16/24 14:26 Hand Right Gram Stain - Final 09/16/24 14:26 Hand Right Routine Culture - Preliminary Culture in progress. 09/12/24 15:30 Hand Right Gram Stain - Final 09/12/24 15:30 Hand Right Routine Culture - Preliminary Proteus mirabilis Citrobacter freundii 09/12/24 15:28 Hand Right Gram Stain - Final 09/12/24 15:28 Hand Right Routine Culture - Final Proteus mirabilis Klebsiella oxytoca 09/09/24 13:00 Finger Gram Stain - Final 09/09/24 13:00 Finger Routine Culture - Final 08/22/24 14:52 Blood - Venous Blood Culture - Final No growth after 5 days. 08/22/24 14:20 Blood - Venous Blood Culture - Final No growth after 5 days. 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 Prognosis guarded.
--- NOTE | 2024-09-17 14:39 | PM.NEUROCN ---
History of Present Illness Data of Consult Service Date: 09/17/24 Primary Care Provider: Nonstaff Physician HPI Reason for consult: Twitching and weakness of left upper extremity This is a 69 yr old male woth h/o ESRD on hemodialysis M/W/F, insulin-dependent type 2 diabetes, peripheral vascular disease, s/p right BKA 04/[address] Cannon, seizure disorder, HFrEF, HTN, HLD, chronically on 2L home O2, GERD, and ROBERT on CPAP who presented to the ED with?worsening pain in his left hand with 3rd and index fingers dry gangrene. I was asked to see him because of significant twitching and weakness in the left upper extremity. He had previously been evaluated by Dr. Mckeon on an earlier admission when he presented with some twitching. EEG at that time showed some left cerebral irritability but no clinical seizures. [facility] Past Medical History Medical History Above knee amputation of right lower extremity Left ventricular systolic dysfunction (LVSD) PVD (peripheral vascular disease) Postop check Acute pericardial effusion Right sided weakness Dehiscence of wound Peripheral arterial disease Dry gangrene Cellulitis of right foot HFrEF (heart failure with reduced ejection fraction) Chronic combined systolic and diastolic CHF (congestive heart failure) Chronic pericardial effusion Arthritis Asthma Restless leg syndrome Acute on chronic systolic and diastolic heart failure, NYHA class 3 Anemia Occlusive thrombus Pulmonary edema ROBERT (obstructive sleep apnea) Type 2 diabetes mellitus Hyperlipidemia Hypertension A-V fistula ESRD on dialysis Falling Family History Family History Father No problems noted. Mother No problems noted. Family history: reviewed and not pertinent Surgical History Surgical History Status post creation of pericardial window Hx of right BKA History of transmetatarsal amputation of foot Status post transmetatarsal amputation of right foot Postop check History of surgery H/O colonoscopy Recurrent pleural effusion Pleural effusion on right (07/13/23) Social History Social History Household Members: Family Household Members Other:: son Housing: House Are you a primary clinical care manager to a significant other at home: No Do you presently have visiting nurse or other home services: No Unable to assess alcohol history related to: Unknown Alcohol intake: former Comment: 1:1 for SI Patient Tobacco Use Status: Former Tobacco user Tobacco use type: Cigarette Second Hand Smoke Exposure: No Advance Directives Date on File: 10/04/23 service: No Current occupational status: disabled 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 Meds Allergies Allergy/AdvReac Type Severity Reaction Status Date / Time Iodinated Contrast Media Allergy Severe Facial Verified 08/22/24 11:22 (Contrast Dye) Swelling hydralazine AdvReac Severe vasculitis Verified 08/22/24 11:22 Active Medications: Current Medications Acetaminophen (Acetaminophen 325 Mg Tablet) 975 mg PO Q6H PRN PRN Reason: Pain, Mild 1-3,fever,headache Last Admin: 09/17/24 09:36 Dose: 975 mg Albuterol Sulfate (Albuterol Sulfate 90 Mcg 8 Gm Inhaler) 2 puff INHALE Q4H PRN PRN Reason: Wheezing Allopurinol (Allopurinol 100 Mg Tablet) 100 mg PO MOWEFR@1600 [facility] Last Admin: 09/16/24 17:20 Dose: Not Given Amlodipine Besylate (Amlodipine Besylate 10 Mg Tablet) 10 mg PO DAILY [facility]; Protocol Last Admin: 09/17/24 09:29 Dose: 10 mg Aspirin (Aspirin Enteric Coated 81 Mg Tablet.) 81 mg PO MOWEFR@1600 [facility] Last Admin: 09/16/24 17:20 Dose: Not Given Aspirin (Aspirin Enteric Coated 81 Mg Tablet.) 81 mg PO SUTUTHSA@0900 [facility] Last Admin: 09/17/24 10:24 Dose: 81 mg Atorvastatin Calcium (Atorvastatin Calcium 40 Mg Tablet) 40 mg PO MOWEFR@1600 [facility] Last Admin: 09/16/24 17:20 Dose: Not Given Atorvastatin Calcium (Atorvastatin Calcium 40 Mg Tablet) 40 mg PO SUTUTHSA@0900 [facility] Last Admin: 09/17/24 10:22 Dose: 40 mg Calcium Carbonate (Calcium Carbonate 750 Mg Tab.Chew) 750 mg PO Q4H PRN PRN Reason: Heartburn Carvedilol (Carvedilol 25 Mg Tablet) 25 mg PO BID [facility]; Protocol Last Admin: 09/17/24 09:24 Dose: 25 mg Ceftriaxone Sodium (Ceftriaxone Sodium 1 Gm Vial) 1 gm IVPUSH Q24H [facility] Last Admin: 09/17/24 13:39 Dose: Not Given Collagenase (Collagenase Clostridium Hist. 30 Gm Tube) 1 appl TOPICAL DAILY [facility] Last Admin: 09/17/24 13:49 Dose: 1 appl Dextrose (Dextrose 50 % 25 Gm/50 Ml Syringe) 25 gm IVPUSH Q15M PRN; Protocol PRN Reason: per Hypoglycemia Standing Ord. Last Admin: 09/16/24 16:22 Dose: 25 gm Docusate Sodium (Docusate Sodium 100 Mg Capsule) 100 mg PO DAILY [facility] Last Admin: 09/17/24 10:23 Dose: 100 mg Doxazosin Mesylate (Doxazosin Mesylate 2 Mg Tablet) 4 mg PO BEDTIME [facility]; Protocol Last Admin: 09/16/24 20:40 Dose: 4 mg Fluticasone/Umeclidinium/Vilanterol (Fluticasone/Umeclidinium/Vilanterol 100/62.5/ Blst.W.Dev) 1 puff INHALE RDAILY [facility] Last Admin: 09/17/24 09:06 Dose: Not Given Furosemide (Furosemide 40 Mg Tablet) 80 mg PO MOWEFR@1600 [facility]; Protocol Last Admin: 09/16/24 17:20 Dose: Not Given Furosemide (Furosemide 40 Mg Tablet) 80 mg PO SUTUTHSA@0900 [facility]; Protocol Last Admin: 09/17/24 10:23 Dose: 80 mg Glucose (Glucose Gel 15 Gm Gel..Gram.) 15 gm PO Q15M PRN PRN Reason: per Hypoglycemia Standing Ord. Last Admin: 08/25/24 04:50 Dose: 15 gm Heparin Sodium (Porcine) (Heparin Sodium,Porcine 5,000 Unit/Ml Vial) 5,000 unit SUBCUT Q12H [facility] Last Admin: 09/17/24 11:44 Dose: 5,000 unit Hydrocortisone (Hydrocortisone 1 % Ointment 28.35 Gm Tube) 1 appl TOPICAL BID PRN; Protocol PRN Reason: itching Vancomycin HCl 500 mg/ Sodium (Chloride) 110 mls @ 110 mls/hr IV ONCE ONE Stop: 08/23/24 20:59 Sodium Bicarbonate 50 meq/ (Dextrose) 1,000 mls @ 50 mls/hr IV .Q20H [facility] Last Infusion: 09/17/24 13:37 Dose: 50 mls/hr Insulin Glargine (Insulin Glargine,Hum.Rec.Anlog 100 Unit/Ml 10 Ml Vial) 10 unit SUBCUT BEDTIME [facility] Last Admin: 09/16/24 20:37 Dose: 10 unit Insulin Human Lispro (Insulin Lispro 100 Unit/Ml 3 Ml Vial) 0 unit SUBCUT QIDACHS [facility]; Protocol Last Admin: 09/17/24 11:45 Dose: 2 unit Levetiracetam (Levetiracetam 1,000 Mg Tablet) 1,000 mg PO BID [facility] Last Admin: 09/17/24 10:21 Dose: 1,000 mg Magnesium Hydroxide (Milk Of Magnesia 30 Ml Oral.Susp) 30 ml PO DAILY PRN PRN Reason: Constipation Last Admin: 09/06/24 17:00 Dose: 30 ml Melatonin (Melatonin 3 Mg Tablet) 6 mg PO BEDTIME PRN PRN Reason: Insomnia Last Admin: 09/15/24 22:21 Dose: 6 mg Omeprazole (Omeprazole 20 Mg Capsule.Dr) 20 mg PO DAILY@0630 [facility] Last Admin: 09/17/24 06:14 Dose: 20 mg Ondansetron HCl (Ondansetron Hcl 4 Mg/2 Ml Vial) 4 mg IVPUSH Q8H PRN PRN Reason: Nausea and Vomiting Oxycodone HCl (Oxycodone Hcl Immed Release 5 Mg Tablet) 10 mg PO Q3H PRN PRN Reason: Pain, Severe (Pain Scale 7-10) Last Admin: 09/16/24 22:29 Dose: 10 mg Pharmacy Consult (Consult Rx Vancomycin Dosing) 1 each MISCELLANE DAILY PRN PRN Reason: Consult order Pregabalin (Pregabalin 75 Mg Capsule) 75 mg PO DAILY [facility] Last Admin: 09/17/24 10:22 Dose: 75 mg Sevelamer Carbonate (Sevelamer Carbonate Tablet 800 Mg Tablet) 800 mg PO TIDWM [facility] Last Admin: 09/17/24 11:45 Dose: 800 mg Sodium Chloride (0.9 % Sodium Chloride Flush 3 Ml Syringe) 3 ml IVFLUSH QSHIFT [facility] Last Admin: 09/17/24 09:33 Dose: Not Given Home Medications ?Medication ?Instructions ?Recorded ?Confirmed ?Last Taken ?Type allopurinol 100 mg tablet 100 mg PO MOWEFR@1600 04/19/22 08/22/24 08/21/24 History atorvastatin 40 mg tablet 40 mg PO SUTUTHSA@0900 04/19/22 08/22/24 08/21/24 History doxazosin 4 mg tablet 4 mg PO BEDTIME 04/19/22 08/22/24 08/21/24 History furosemide 80 mg tablet 80 mg PO SUTUTHSA@0904/19/22 08/22/24 08/21/24 History omeprazole 20 mg capsule,delayed 20 mg PO DAILY@0630 04/19/22 08/22/24 08/21/24 History release aspirin 81 mg tablet,delayed 81 mg PO SUTUTHSA@0906/20/23 08/22/24 08/21/24 History release pregabalin 75 mg capsule 75 mg PO DAILY 06/20/23 08/22/24 08/21/24 History aspirin 81 mg tablet,delayed 81 mg PO MOWEFR@1600 04/05/24 08/22/24 08/21/24 History release atorvastatin 40 mg tablet 40 mg PO MOWEFR@1600 04/05/24 08/22/24 08/21/24 History fluticasone fur. 100 mcg-umeclid 1 inh inhalation DAILY 04/05/24 08/22/24 08/21/24 History 62.5 mcg-vilant 25 mcg inhalat.powder (Trelegy Ellipta) furosemide 80 mg tablet 80 mg PO MOWEFR@1600 04/05/24 08/22/24 08/21/24 History losartan 25 mg tablet 25 mg PO MOWEFR@1600 04/05/24 08/22/24 08/21/24 History losartan 25 mg tablet 25 mg PO SUTUTHSA@0904/05/24 08/22/24 08/21/24 History insulin glargine 100 unit/mL (3 22 unit subcut BEDTIME 05/01/24 08/22/24 08/21/24 History mL) subcutaneous pen (Lantus Solostar U-100 Insulin) acetaminophen 500 mg tablet 1,000 mg PO Q8H PRN Pain 05/26/24 08/22/24 Unknown History amlodipine 10 mg tablet 10 mg PO DAILY 05/26/24 08/22/24 08/21/24 History calcium carbonate (Calcium 500) 500 mg PO TID 05/26/24 08/22/24 08/21/24 History docusate sodium 100 mg capsule 100 mg PO DAILY 05/26/24 08/22/24 08/21/24 History insulin lispro 100 unit/mL See Rx Instructions .Route .COMPLEX 05/26/24 08/22/24 08/21/24 History subcutaneous solution (Humalog U-100 Insulin) albuterol sulfate 90 mcg/actuation 2 puff inhalation Q4H PRN wheezing 08/22/24 08/22/24 Unknown History aerosol inhaler (Ventolin HFA) carvedilol 6.25 mg tablet 6.25 mg PO BID 08/22/24 08/22/24 Unknown History ipratropium 0.5 mg-albuterol 3 mg 3 ml inhalation QID PRN Shortness 08/22/24 08/22/24 08/21/24 History (2.5 mg base)/3 mL nebulization Of Breath soln sucroferric oxyhydroxide 500 mg 500 mg PO TID 08/22/24 08/22/24 08/21/24 History chewable tablet (Velphoro) Physical Exam Vital Signs: Vital Signs: Last Vital Signs Temp 99.0 F 09/17/24 13:01 Pulse 64 09/17/24 13:01 Resp 18 09/17/24 13:01 BP 146/72 H 09/17/24 13:01 Pulse Ox 92 09/17/24 13:01 O2 Del Method Room Air 09/17/24 13:01 O2 Flow Rate 1 09/16/24 03:39 BMI result Body Mass Index 27.3 Neuro: Other: He is alert and oriented. He has asterixis of all 4 limbs when held up against gravity but no twitching or any other involuntary movements at rest. This was confirmed by his son also who was at bedside. Results Labs 09/17/24 05:47 09/17/24 11:13 Labs: Short CBC 09/17/24 Range/Units 05:47 WBC 13.8 H (4.8-10.8) X10*3/uL Hgb 9.1 L (14.0-18.0) g/dl Hct 29.5 L (42.0-52.0) % Plt Count 237 (160-400) X10*3/uL BMP 09/17/24 09/17/24 05:47 11:13 Sodium 135 Potassium 6.3 H* 5.6 H Chloride 96 Carbon Dioxide 23 BUN 68 H Creatinine 7.87 H* Calcium 8.7 Microbiology Microbiology Results: Microbiology 09/16/24 14:26 Hand Right Gram Stain - Final 09/16/24 14:26 Hand Right Routine Culture - Preliminary Culture in progress. 09/12/24 15:30 Hand Right Gram Stain - Final 09/12/24 15:30 Hand Right Routine Culture - Preliminary Proteus mirabilis Citrobacter freundii 09/12/24 15:28 Hand Right Gram Stain - Final 09/12/24 15:28 Hand Right Routine Culture - Final Proteus mirabilis Klebsiella oxytoca 09/09/24 13:00 Finger Gram Stain - Final 09/09/24 13:00 Finger Routine Culture - Final 08/22/24 14:52 Blood - Venous Blood Culture - Final No growth after 5 days. 08/22/24 14:20 Blood - Venous Blood Culture - Final No growth after 5 days. Assessment and Plan (1) Encephalopathy: Status: Acute (2) Asterixis: Status: Acute Plan His involuntary movements are asterixis and only appear when the limb is held against gravity and they are seen in all 4 extremities, including lower extremities. They are related to his encephalopathy from chronic kidney disease. These do not appear to be seizures. If there is any clinical concern of seizures follow-up EEG can be done. I would not start him on any antiepileptic medication at this time. Procedures Date of Service Date of Service: 09/17/24
--- NOTE | 2024-09-17 14:39 | HO.WOUND ---
Wound Consult: Follow up 69yr old?male admitted [place] [facility] [place]- See progress notes and H&P for detailed history.? Wound consult follow up for calf and Right AKA.? Finger are followed and managed by Ortho Surgery Team - defer topical orders to them for right hand / fingers. Patient agreeable to assessment and photo documentation.? No new topical recommendations needed at this time. Right 2nd and 3rd Fingers Etiology: Arterial Wounds??Present on Admission Defer to Orthopedic Surgery Team Left Great Toe Etiology: Arterial Wounds vs Diabetic wound??Present on Admission Wound Bed: worsening dried mummified gangrene Drainage / Odor: no drainage mal odor noted Edges: ? dried and stable Erin wound: ?mild erythema noted - No Induration, Fluctuance or Warmth noted Pain: denies pain Goals of Treatment: ? [place] with Betadine Right AKA Etiology: Healing Diabetic wound ??Present on Admission Wound Bed: Resurfacing dry tissue noted - almost full resurfaced Drainage / Odor: None Edges: irregular and attached Erin wound: ?intact No Induration, Fluctuance or Warmth noted Pain: denies pain Goals of Treatment: ? [place] with Betadine and dry dressing Left Posterior Calf - unchanged continues to need debridement Etiology: Diabetic Wound??Present on Admission Wound Bed: moist necrotic loosely attached tissue Drainage / Odor: mal odor noted huang drainage Edges: ? irregular and hyperpigmented Erin wound: FLuctuance under eschar noted - No Induration or Warmth noted Pain: reports pain Goals of Treatment: ? Santyl for enzymatic debridement Recommendations: 1. Turn and Reposition every 2 hours and as needed for patient comfort.? Use pillows or wedges to support off loading positions. 2. Off Load all bony prominences with use of pillows and heel boots if needed.? Apply Preventative foams where needed. ? 3. Monitor for incontinence and moisture control, use barrier creams when needed for prevention and treatment. 4. Provide adequate and supplemental nutrition.? 5. Continue low air loss mattress. 6. When applicable maintain blood glucose levels per Providers order. Left Posterior Calf - Cleanse with normal saline, pat dry. ?Apply barrier to the immediate erin wound, apply thick layer of Santyl to entire wound bed, cover with saline moist gauze, cover with dry gauze, ABD pad and gauze wrap, change Daily. Right AKA site - Cleanse with NS pat dry. Apply skin prep cover wound bed with dry gauze dressing. change every 3 days. Left Great Toe - Meyersdale with Betadine allow to dry. May leave GRAB SETTER- if drainage occurs cover with dry gauze. Meyersdale Daily. Right Fingers Defer to Surgery team for topical orders. Re-consult wound care Nurse for wound deterioration or wound changes.
--- NOTE | 2024-09-17 14:49 | MHC.SL.SWA ---
Dysphasia Diet Status: regular solids/thin liquids Liquid Consistency and Strategies for Safe Swallow: Liquid Intake Recommendation: Thin Solid Food Consistency: Dietary Recommendations: Regular Additional Modifications to Solid Foods: Mastication is mildly prolonged in setting of missing teeth, with mild oral residue post-swallow, which cleared with liquid wash. Oral Medication Intake: Whole with Liquid Please contact the pharmacy regarding appropriate crushable or liquid drug formulations that are available whenever modified delivery is recommended. Compensatory Strategies and Precautions to be Taken for Safe Swallow: Sitting Upright (90 deg) Small Bites and Sips Alternate Liquids/Solids Oral Check Supervision While Eating and Drinking for Safe Swallow: Total Assistance (1:1) Recommendation for Speech: Inpatient Speech Therapy Comment: Mastication is mildly prolonged in setting of missing teeth, with mild oral residue post-swallow, which cleared with liquid wash. Recommend pt continue w/ regular solids, thin liquids, pills whole w/ liquid and 1-1 assistance feeding. Do not leave tray w/ pt w/o supervision d/t varying confusion and alertness. During times of increased confusion, consider crushing pills if possible to prevent pt from chewing pills. Do not feed pt if he is not alert and engaged with staff/PO. Recommend f/u 1-2x to ensure toleration of regular solids. Fitter Placer Clinican/Clinical Fellow: No Supervisory Statement: I have reviewed and agree with the student/clinical fellow's documentation: N/A Speech Language Pathologist: Janae Seaman M.A., CCC-AIRCRAFT PART ASSEMBLER
--- NOTE | 2024-09-17 15:35 | HO.PM.IMPN ---
Subjective Subjective Date of Service: 09/17/24 Interval History: hyperkalemia Review of Systems some generlaised weak,hand shakiness /tremer /twiching?,some confusion in morning rounds afterwards in afternoon seems to be inmproving -able to drink po liquid own his own and able to hold the shania cane while sipping /son present son also says patient has these symptoms after (hd/suregery /pain meds ) then improves aftrewards. Review of Systems: Yes all other systems are reviewed and are negative Physical Exam Vital Signs: Vital Signs: Last Vital Signs Temp 99.0 F 09/17/24 13:01 Pulse 64 09/17/24 13:01 Resp 18 09/17/24 13:01 BP 146/72 H 09/17/24 13:01 Pulse Ox 92 09/17/24 13:01 O2 Del Method Room Air 09/17/24 13:01 O2 Flow Rate 1 09/16/24 03:39 BMI result Body Mass Index 27.3 Appearance: Alert.? Oriented . cvs: rrr, [id number]. res: clear to auscultation ,no rhonchii or wheezing abd: no rebound or guarding ,nt, bs present. ext :Extremities right BKA ,left lower ext -changes similar(please see vascular and wound care note) neuro: nonfocal. Objective Data Active Medications Acetaminophen (Acetaminophen 325 Mg Tablet) 975 mg PO Q6H PRN PRN Reason: Pain, Mild 1-3,fever,headache Last Admin: 09/17/24 09:36 Dose: 975 mg Documented By: SANJUANA Albuterol Sulfate (Albuterol Sulfate 90 Mcg 8 Gm Inhaler) 2 puff INHALE Q4H PRN PRN Reason: Wheezing Allopurinol (Allopurinol 100 Mg Tablet) 100 mg PO MOWEFR@1600 NASREEN Last Admin: 09/16/24 17:20 Dose: Not Given Documented By: ROXANNE Non-Admin Reason: Patient Refused Amlodipine Besylate (Amlodipine Besylate 10 Mg Tablet) 10 mg PO DAILY [facility]; Protocol Last Admin: 09/17/24 09:29 Dose: 10 mg Documented By: SANJUANA Aspirin (Aspirin Enteric Coated 81 Mg Tablet.) 81 mg PO MOWEFR@1600 NASREEN Last Admin: 09/16/24 17:20 Dose: Not Given Documented By: ROXANNE Non-Admin Reason: Patient Refused Aspirin (Aspirin Enteric Coated 81 Mg Tablet.) 81 mg PO SUTUTHSA@0900 [facility] Last Admin: 09/17/24 10:24 Dose: 81 mg Documented By: SANJUANA Atorvastatin Calcium (Atorvastatin Calcium 40 Mg Tablet) 40 mg PO MOWEFR@1600 [facility] Last Admin: 09/16/24 17:20 Dose: Not Given Documented By: ROXANNE Non-Admin Reason: Patient Refused Atorvastatin Calcium (Atorvastatin Calcium 40 Mg Tablet) 40 mg PO SUTUTHSA@0900 [facility] Last Admin: 09/17/24 10:22 Dose: 40 mg Documented By: SANJUANA Calcium Carbonate (Calcium Carbonate 750 Mg Tab.Chew) 750 mg PO Q4H PRN PRN Reason: Heartburn Carvedilol (Carvedilol 25 Mg Tablet) 25 mg PO BID [facility]; Protocol Last Admin: 09/17/24 09:24 Dose: 25 mg Documented By: SANJUANA Ceftriaxone Sodium (Ceftriaxone Sodium 1 Gm Vial) 1 gm IVPUSH Q24H [facility] Last Admin: 09/17/24 13:39 Dose: Not Given Documented By: SANJUANA Non-Admin Reason: Previously Administered Collagenase (Collagenase Clostridium Hist. 30 Gm Tube) 1 appl TOPICAL DAILY [facility] Last Admin: 09/17/24 13:49 Dose: 1 appl Documented By: SANJUANA Dextrose (Dextrose 50 % 25 Gm/50 Ml Syringe) 25 gm IVPUSH Q15M PRN; Protocol PRN Reason: per Hypoglycemia Standing Ord. Last Admin: 09/16/24 16:22 Dose: 25 gm Documented By: ROXANNE Docusate Sodium (Docusate Sodium 100 Mg Capsule) 100 mg PO DAILY [facility] Last Admin: 09/17/24 10:23 Dose: 100 mg Documented By: SANJUANA Doxazosin Mesylate (Doxazosin Mesylate 2 Mg Tablet) 4 mg PO BEDTIME [facility]; Protocol Last Admin: 09/16/24 20:40 Dose: 4 mg Documented By: SABA Fluticasone/Umeclidinium/Vilanterol (Fluticasone/Umeclidinium/Vilanterol 100/62.5/25 Blst.W.Dev) 1 puff INHALE RDAILY [facility] Last Admin: 09/17/24 09:06 Dose: Not Given Documented By: SHRUTHI Non-Admin Reason: pt confused, unable to lennie Furosemide (Furosemide 40 Mg Tablet) 80 mg PO MOWEFR@1600 NASREEN; Protocol Last Admin: 09/16/24 17:20 Dose: Not Given Documented By: ROXANNE Non-Admin Reason: Patient Refused Furosemide (Furosemide 40 Mg Tablet) 80 mg PO SUTUTHSA@0900 NASREEN; Protocol Last Admin: 09/17/24 10:23 Dose: 80 mg Documented By: SANJUANA Glucose (Glucose Gel 15 Gm Gel..Gram.) 15 gm PO Q15M PRN PRN Reason: per Hypoglycemia Standing Ord. Last Admin: 08/25/24 04:50 Dose: 15 gm Documented By: HENRIETTA Heparin Sodium (Porcine) (Heparin Sodium,Porcine 5,000 Unit/Ml Vial) 5,000 unit SUBCUT Q12H [facility] Last Admin: 09/17/24 11:44 Dose: 5,000 unit Documented By: SANJUANA Hydrocortisone (Hydrocortisone 1 % Ointment 28.35 Gm Tube) 1 appl TOPICAL BID PRN; Protocol PRN Reason: itching Vancomycin HCl 500 mg/ Sodium (Chloride) 110 mls @ 110 mls/hr IV ONCE ONE Stop: 08/23/24 20:59 Sodium Bicarbonate 50 meq/ (Dextrose) 1,000 mls @ 50 mls/hr IV .Q20H NASREEN Last Infusion: 09/17/24 13:37 Dose: 50 mls/hr Documented By: SANJUANA Insulin Glargine (Insulin Glargine,Hum.Rec.Anlog 100 Unit/Ml 10 Ml Vial) 10 unit SUBCUT BEDTIME [facility] Last Admin: 09/16/24 20:37 Dose: 10 unit Documented By: SABA Insulin Human Lispro (Insulin Lispro 100 Unit/Ml 3 Ml Vial) 0 unit SUBCUT QIDACHS [facility]; Protocol Last Admin: 09/17/24 11:45 Dose: 2 unit Documented By: SANJUANA Levetiracetam (Levetiracetam 1,000 Mg Tablet) 1,000 mg PO BID [facility] Last Admin: 09/17/24 10:21 Dose: 1,000 mg Documented By: SANJUANA Magnesium Hydroxide (Milk Of Magnesia 30 Ml Oral.Susp) 30 ml PO DAILY PRN PRN Reason: Constipation Last Admin: 09/06/24 17:00 Dose: 30 ml Documented By: COLBURJoey Melatonin (Melatonin 3 Mg Tablet) 6 mg PO BEDTIME PRN PRN Reason: Insomnia Last Admin: 09/15/24 22:21 Dose: 6 mg Documented By: TEAGAN Omeprazole (Omeprazole 20 Mg Capsule.Dr) 20 mg PO DAILY@0630 [facility] Last Admin: 09/17/24 06:14 Dose: 20 mg Documented By: SABA Ondansetron HCl (Ondansetron Hcl 4 Mg/2 Ml Vial) 4 mg IVPUSH Q8H PRN PRN Reason: Nausea and Vomiting Oxycodone HCl (Oxycodone Hcl Immed Release 5 Mg Tablet) 10 mg PO Q3H PRN PRN Reason: Pain, Severe (Pain Scale 7-10) Last Admin: 09/16/24 22:29 Dose: 10 mg Documented By: SABA Pharmacy Consult (Consult Rx Vancomycin Dosing) 1 each MISCELLANE DAILY PRN PRN Reason: Consult order Pregabalin (Pregabalin 75 Mg Capsule) 75 mg PO DAILY [facility] Last Admin: 09/17/24 10:22 Dose: 75 mg Documented By: SANJUANA Sevelamer Carbonate (Sevelamer Carbonate Tablet 800 Mg Tablet) 800 mg PO TIDWM [facility] Last Admin: 09/17/24 11:45 Dose: 800 mg Documented By: SANJUANA Sodium Chloride (0.9 % Sodium Chloride Flush 3 Ml Syringe) 3 ml IVFLUSH QSHIFT [facility] Last Admin: 09/17/24 09:33 Dose: Not Given Documented By: SANJUANA Non-Admin Reason: IV Running Labs 09/17/24 05:47 09/17/24 11:13 Labs: Laboratory Results - last 24 hr 09/16/24 09/16/24 09/16/24 16:18 16:52 18:21 MCV MCH MCHC RDW Plt Count MPV Absolute Nucleated RBC Nucleated RBC % (auto) Hold Purple Top Anion Gap Estim Creat Clear Calc Estimated GFR POC Glucose 62 155 H Random Glucose Calcium Random Vancomycin 16.4 09/16/24 09/17/24 09/17/24 20:02 05:47 07:08 MCV 73.2 L MCH 22.6 L MCHC 30.8 L RDW 17.8 H Plt Count 237 MPV TNP Absolute Nucleated RBC 0.000 Nucleated RBC % (auto) 0.0 Hold Purple Top Anion Gap 22 H Estim Creat Clear Calc 8.1 Estimated GFR 7 POC Glucose 315 H 252 H Random Glucose 278 H Calcium 8.7 Random Vancomycin 09/17/24 09/17/24 11:12 11:13 MCV MCH MCHC RDW Plt Count MPV Absolute Nucleated RBC Nucleated RBC % (auto) Hold Purple Top SEE NOTE Anion Gap Estim Creat Clear Calc Estimated GFR POC Glucose 197 H Random Glucose Calcium Random Vancomycin Microbiology Microbiology Results: Microbiology 09/16/24 14:26 Gram Stain - Final Hand Right Routine Culture - Preliminary Culture in progress. 09/12/24 15:30 Gram Stain - Final Hand Right Routine Culture - Preliminary Proteus mirabilis Citrobacter freundii Assessment and Plan (1) ESRD needing dialysis: Status: Acute (2) PVD (peripheral vascular disease): Status: Acute Plan 69yo M with DM2, ESRD on HD MWF, PVD, 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 day 9 status post ray resection of right 3rd metacarpal afebrile hand surgery s/p i&[id number]/09:1. Right hand I&D including I and D of 3rd metacarpal bone, and index finger proximal phalanx bone2. Right index finger revision amputation at the proximal phalanx level. also procedures on :surgery on 09/12:1. Left hand necrosis secondary to severe peripheral vascular disease2. Left hand infection 09/14:1. Right hand I&D including deep palmar space, 2. Shortening of the 3rd and 4th metacarpal shafts to facilitate closure . 09/16 -possible Irrigation and debridement of right hand wound culture proteus mirabilis senstive to ceftriaxone plan: pain control adequate vanco trough 16.4 on 09/13. On vancomycin since 08/22 and cefepime 08/31 changed to ceftriaxone 1 gm q24(09/16) ( per wound cultures klebsiella /proteus -both senstive to ceftriaxone), oxycodone for pain control. in additon seen by dr grajeda:At the current time left lower extremity appears to be stable. It is dry gangrene. vascular would like the hand to be taken care of an resolved prior to consideration of any sort of intervention on the left lower extremity. as per vascular -patient might have a similar situation as the right and may eventually end up with an above-knee amputation. At the current time no signs of infection appears to be dry gangrene. surgery following-possible possible Irrigation and debridement of right hand today ESRD on HD with hyperkalemia HD MWF, potassium 6.3 ,given dose of loklemia ,calcium gluconate,bicarb:potassium improved to 5.8 ,given another loklema dose moniter bmp closely nephrology following toxic meatbolic encephalopathy-mulifactorial electrolytic abnormalities ,esrd. multiple surgery procedures and overall general condition ,also hold oxycodone might be contributing ct -head negative patient seem improving,neurochecks, seen by neuro-less likely seizure ,added eeg. plan: neurochecks HTN Acceptable control on current therapies Off losartan due to reccurent hyperkalemia DM2 No further hypoglycemia. Control ok lispro correctional scale... Adjust as indicated Family was strongly suggested not to bring outside food because that causing fluctuation in the fingersticks as well as its effect on patient care. ? Depression with suicidal ideation: psych eval noted-denies si feels sad , not depressed( refer to psych note from 09/13) Wound care: Turn and Reposition every 2 hours and as needed for patient comfort.? Use pillows or wedges to support off loading positions. Off Load all bony prominences with use of pillows and heel boots if needed.? Apply Preventative foams where needed. ? Monitor for incontinence and moisture control, use barrier creams when needed for prevention and treatment. Provide adequate and supplemental nutrition.? Continue low air loss mattress. When applicable maintain blood glucose levels per Providers order. Left Posterior Calf - Cleanse with normal saline, pat dry. ?Apply barrier to the immediate erin wound, apply thick layer of Santyl to entire wound bed, cover with saline moist gauze, cover with dry gauze, ABD pad and gauze wrap, change Daily. Right AKA site - Cleanse with NS pat dry. Apply skin prep cover wound bed with dry gauze dressing. change every 3 days. Left Great Toe - Garber with Betadine allow to dry. May leave JARROD- if drainage occurs cover with dry gauze. Garber Daily. Right Fingers Defer to Surgery team for topical orders. DVT PPx SC heparin In my clinical judgment, the patient requires continued inpatient hospitalization for the following reasons: IV ABX, surgical management Quality Stroke Does the patient have a stroke diagnosis?: No VTE Prior VTE?: No VTE Risk Level:: Medical - moderate - high VTE Device Contraindication: Treatment Not Indicated VTE Drug Contraindication: N/A - Med Ordered
[2024-09-17 16:38] LABS: Glucose, Whole Blood 299 mg/dL (60-115)
[2024-09-17 19:42] LABS: Anion Gap 23 (12-20); Blood Urea Nitrogen 76 mg/dL (9-16); Calcium 9.2 mg/dL (8.4-10.2); Carbon Dioxide 21 mmol/L (22-29); Chloride 97 mmol/L (96-108); Creatinine Clr Calc Pharmacy 7.4; Estimated Glomerular Filt Rate 6; Potassium 5.9 mmol/L (3.3-5.1); Sodium 135 mmol/L (135-145)
[2024-09-17 20:48] LABS: Glucose, Whole Blood 192 mg/dL (60-115)
[2024-09-17] MEDS: Insulin Glargine,Hum.rec.anlog 100 UNIT/ML 10 ML VIAL 10 UNIT SUBCUT (21:46)
--- NOTE | 2024-09-17 23:46 | PC.NURSE ---
Pt's HR at bedtime was 58. NASREEN carvedilol was held due to decreased HR, see MAR. MD Junior made aware. Will continue to monitor pt's HR.
[2024-09-18] VITALS (9 sets, daily range): BP systolic 130–189; BP diastolic 55–81; PULSE 52–74; RESP 16–18; TEMP 36.8–37.1; O2SAT 92–98
--- NOTE | 2024-09-18 | ECG_ITS ---
Test Reason : elevated k Blood Pressure : */* mmHG Vent. Rate : 57 BPM Atrial Rate : 57 BPM P-R Int : 188 ms QRS Dur : 114 ms QT Int : 436 ms P-R-T Axes : 32 -17 75 degrees QTcB Int : 424 ms Sinus bradycardia Incomplete left bundle branch block Minimal voltage criteria for LVH, may be normal variant ( [place] product ) Nonspecific T wave abnormality Abnormal ECG When compared with ECG of 02-Jul-2024 14:50, No significant change was found Referred By: Bennett Hu Electronically Signed By: SHEEBA GRIFFITHS
[2024-09-18 00:49] LABS: Glucose, Whole Blood 165 mg/dL (60-115)
[2024-09-18] MEDS: Calcium Gluconate/NaCl,Iso-Osm 2 GM/100 ML PLAST..BAG IV (01:57)
[2024-09-18 02:12] LABS: Glucose, Whole Blood 166 mg/dL (60-115)
[2024-09-18] MEDS: oxyCODONE HCl Immed Release 5 MG TABLET 10 MG PO (03:20)
[2024-09-18 07:10] LABS: Anion Gap 20 (12-20); Blood Urea Nitrogen 83 mg/dL (9-16); Calcium 9.3 mg/dL (8.4-10.2); Carbon Dioxide 23 mmol/L (22-29); Chloride 96 mmol/L (96-108); Sodium 133 mmol/L (135-145)
[2024-09-18 07:42] LABS: Creatinine Clr Calc Pharmacy 7.1; Estimated Glomerular Filt Rate 6; Potassium 6.4 mmol/L (3.3-5.1)
[2024-09-18 08:09] LABS: Glucose, Whole Blood 128 mg/dL (60-115)
--- NOTE | 2024-09-18 08:10 | PC.NURSE ---
stat EKG completed ,results sent to Dr. SOSA
[2024-09-18] MEDS: Fluticasone/Umeclidinium/Vilanterol 100/62.5/25 BLST.W.DEV 1 PUFF INHALE ×2 (09:15)
--- NOTE | 2024-09-18 09:25 | PM.PNORT ---
Subjective Subjective Date of Service: 09/18/24 Interval history: 69-year-old male status post multiple surgeries over the last 2 weeks for necrotic digits of right hand, most recent revision I and D and revision amputation 09/16/[address] Rosales Patient is resting comfortably in bed No acute events overnight Pain appears well managed No other acute complaints Physical Exam Vital Signs: Vital Signs: Last Vital Signs Temp 98.3 F 09/18/24 04:00 Pulse 69 09/18/24 09:15 Resp 18 09/18/24 04:00 BP 189/81 H 09/18/24 04:00 Pulse Ox 95 09/18/24 04:00 O2 Del Method Room Air 09/18/24 04:00 O2 Flow Rate 1 09/16/24 03:39 BMI result Body Mass Index 27.3 Extrem: Other: Dressing on right hand clean, dry, intact Once dressing is removed, there is some drainage noted about the iodoform gauze placed during surgery and No surrounding erythema noted Patient is able to flex and extend the remaining digits of the right hand without difficulty Compartments soft, nontender Distal sensation intact Capillary refill brisk Procedures Date of Service Date of Service: 09/18/24 Progress Note: A&P Assessment and plan (1) Necrosis of finger: Status: Acute (2) Dry gangrene: Status: Acute Plan Continue pain management Dressing changed in packing pulled today without issue Case was discussed with Dr. Rosales, and Dr. Rosales feels that no further operative intervention is indicated for now Patient can eat, no longer NPO Daily dressing changes Dressings should always be loose, applying minimal if any pressure to the wound, to prevent blood flow restriction and to try to mitigate risk of any further necrosis Continue antibiotics Continue with all other recommendations per Medicine Hand surgery will continue to follow Time Spent With Patient Time: Total time managing care of this patient today ____ minutes. Quality Stroke Does the patient have a stroke diagnosis?: No VTE Prior VTE?: No VTE Risk Level:: Medical - moderate - high VTE Device Contraindication: Treatment Not Indicated VTE Drug Contraindication: N/A - Med Ordered
--- NOTE | 2024-09-18 10:23 | W.PM.DNNEP ---
Subjective Subjective Date of Service: 09/18/24 This patient was seen during dialysis. Interval history: This patient was seen during dialysis. following for management of ESRD on HD while here for treatment of dry gangrene and ischemia of right 2nd and third digits. Pt continues to report pain in right hand- ongoing surgical interventions for ischemia. patient is resting comfortably during treatment. Physical Exam Vital Signs: Vital Signs: Last Vital Signs Temp 98.3 F 09/18/24 04:00 Pulse 69 09/18/24 09:15 Resp 18 09/18/24 04:00 BP 189/81 H 09/18/24 04:00 Pulse Ox 95 09/18/24 04:00 O2 Del Method Room Air 09/18/24 04:00 O2 Flow Rate 1 09/16/24 03:39 BMI result Body Mass Index 27.3 Const: General: alert and awake Resp: Effort & Inspection: normal respiratory effort and able to speak in complete sentences Auscultation: clear to auscultation bilaterally Cardio: Rate: regular rate Rhythm: regular rhythm Heart sounds: S1 normal heart sound present and S2 normal heart sound present GI: Palpation (GI): Soft to palpation and nontender Skin: Wounds: wounds noted (right hand dressing- s/p amp, debridement of 2nd/3rd digits. ) Extrem: General: No edema and No pedal edema Assessment & Plan Assessment and plan (1) ESRD needing dialysis: Status: Acute Plan ESRD on HD MWF access: Right permcath appears euvolemic H&H 9.1 & 29.5- had hand surgery on Monday, will re-check H&H. phos is 8.0- ensure sevelamer 800mg TID with meals. Calcium 9.3. Potassium 6.4 this a.m.- will give 2K first half of dialysis and 1K second half of dialysis today. low potassium, phosphorous, and sodium diet fluid restriction 1.5L continue to monitor electrolytes renal function studies daily blood pressures elevated- will consider lowering dry weight if persistent will continue to follow Discussed with Dr Jimenez Time Spent With Patient Time: Total time managing care of this patient today ____ minutes. Procedures Date of Service Date of Service: 09/18/24
--- NOTE | 2024-09-18 11:24 | PC.NURSE ---
Dialysis nurse called ,patient c/o right hand pain,RN went up to dialysis but patient refused Tylenol asking for stronger medication,Dr. Hu notified
[2024-09-18 11:30] LABS: Glucose, Whole Blood 92 mg/dL (60-115)
[2024-09-18] MEDS: 0.9 % Sodium Chloride Flush 3 ML SYRINGE IVFLUSH ×3 (12:18→22:18)
[2024-09-18] MEDS: Sevelamer Carbonate Tablet 800 MG TABLET PO ×3 (12:20→16:48)
[2024-09-18 12:57] LABS: Anion Gap 16 (12-20); Blood Urea Nitrogen 23 mg/dL (9-16); Calcium 9.2 mg/dL (8.4-10.2); Carbon Dioxide 30 mmol/L (22-29); Chloride 96 mmol/L (96-108); Creatinine Clr Calc Pharmacy 18.9; Estimated Glomerular Filt Rate 18; Potassium 3.3 mmol/L (3.3-5.1); Sodium 139 mmol/L (135-145)
--- NOTE | 2024-09-18 13:04 | MHC.CM.PN ---
Per MD rounds patient not medically cleared for dc. Will likely need PT eval. Updates sent to [facility]/SNFs following. CM will continue to follow.
--- NOTE | 2024-09-18 13:11 | P.PNIM_ITS ---
Subjective Subjective Date of Service: 09/18/24 Interval History: c/o R hand pain K 6.4 but now in HD Review of Systems Review of Systems: Yes all other systems are reviewed and are negative Physical Exam 2 Vital Signs: Vital Signs: Last Vital Signs Temp 98.3 F 09/18/24 04:00 Pulse 74 09/18/24 12:20 Resp 18 09/18/24 04:00 BP 185/79 H 09/18/24 12:20 Pulse Ox 95 09/18/24 04:00 O2 Del Method Room Air 09/18/24 04:00 O2 Flow Rate 1 09/16/24 03:39 BMI result Body Mass Index 27.3 Gen: in no acute distress HEENT: sclera anicteric, moist mucus membranes Neck: supple Lungs: clear to auscultation bilaterally Heart: regular rate and rhythm, no murmurs Abd: soft, non-tender, non-distended Ext: no edema, R hand s/p 2nd + 3rd finger amputations and in dry dressing; s/p R BKA Skin: warm/well-perfused Neuro: alert and oriented x3, no focal findings Psych: appropriate affect Objective Data Active Medications Acetaminophen (Acetaminophen 325 Mg Tablet) 975 mg PO Q6H PRN PRN Reason: Pain, Mild 1-3,fever,headache Last Admin: 09/17/24 17:39 Dose: 975 mg Albuterol Sulfate (Albuterol Sulfate 90 Mcg 8 Gm Inhaler) 2 puff INHALE Q4H PRN PRN Reason: Wheezing Allopurinol (Allopurinol 100 Mg Tablet) 100 mg PO MOWEFR@1600 [facility] Last Admin: 09/16/24 17:20 Dose: Not Given Documented By: ROXANNE Non-Admin Reason: Patient Refused Amlodipine Besylate (Amlodipine Besylate 10 Mg Tablet) 10 mg PO DAILY [facility]; Protocol Last Admin: 09/18/24 12:23 Dose: 10 mg Documented By: SANJUANA Aspirin (Aspirin Enteric Coated 81 Mg Tablet.) 81 mg PO MOWEFR@1600 [facility] Last Admin: 09/16/24 17:20 Dose: Not Given Documented By: ROXANNE Non-Admin Reason: Patient Refused Aspirin (Aspirin Enteric Coated 81 Mg Tablet.) 81 mg PO SUTUTHSA@0900 [facility] Last Admin: 09/17/24 10:24 Dose: 81 mg Documented By: SANJUANA Atorvastatin Calcium (Atorvastatin Calcium 40 Mg Tablet) 40 mg PO MOWEFR@1600 [facility] Last Admin: 09/16/24 17:20 Dose: Not Given Documented By: ROXANNE Non-Admin Reason: Patient Refused Atorvastatin Calcium (Atorvastatin Calcium 40 Mg Tablet) 40 mg PO SUTUTHSA@0900 [facility] Last Admin: 09/17/24 10:22 Dose: 40 mg Documented By: SANJUANA Calcium Carbonate (Calcium Carbonate 750 Mg Tab.Chew) 750 mg PO Q4H PRN PRN Reason: Heartburn Carvedilol (Carvedilol 25 Mg Tablet) 25 mg PO BID [facility]; Protocol Last Admin: 09/18/24 12:20 Dose: 25 mg Documented By: SANJUANA Collagenase (Collagenase Clostridium Hist. 30 Gm Tube) 1 appl TOPICAL DAILY [facility] Last Admin: 09/18/24 12:52 Dose: Not Given Documented By: SANJUANA Non-Admin Reason: Patient Refused Dextrose (Dextrose 50 % 25 Gm/50 Ml Syringe) 25 gm IVPUSH Q15M PRN; Protocol PRN Reason: per Hypoglycemia Standing Ord. Last Admin: 09/16/24 16:22 Dose: 25 gm Documented By: ROXANNE Docusate Sodium (Docusate Sodium 100 Mg Capsule) 100 mg PO DAILY [facility] Last Admin: 09/18/24 12:21 Dose: 100 mg Documented By: SANJUANA Doxazosin Mesylate (Doxazosin Mesylate 2 Mg Tablet) 4 mg PO BEDTIME [facility]; Protocol Last Admin: 09/17/24 21:46 Dose: 4 mg Documented By: SABA Fluticasone/Umeclidinium/Vilanterol (Fluticasone/Umeclidinium/Vilanterol 100/62.5/25 Blst.W.Dev) 1 puff INHALE RDAILY [facility] Last Admin: 09/18/24 09:15 Dose: 1 puff Documented By: OSCAR Furosemide (Furosemide 40 Mg Tablet) 80 mg PO MOWEFR@1600 [facility]; Protocol Last Admin: 09/16/24 17:20 Dose: Not Given Documented By: ROXANNE Non-Admin Reason: Patient Refused Furosemide (Furosemide 40 Mg Tablet) 80 mg PO SUTUTHSA@0900 [facility]; Protocol Last Admin: 09/17/24 10:23 Dose: 80 mg Documented By: SANJUANA Glucose (Glucose Gel 15 Gm Gel..Gram.) 15 gm PO Q15M PRN PRN Reason: per Hypoglycemia Standing Ord. Last Admin: 08/25/24 04:50 Dose: 15 gm Documented By: HENRIETTA Heparin Sodium (Porcine) (Heparin Sodium,Porcine 5,000 Unit/Ml Vial) 5,000 unit SUBCUT Q12H [facility] Last Admin: 09/18/24 12:18 Dose: 5,000 unit Documented By: SANJUANA Hydrocortisone (Hydrocortisone 1 % Ointment 28.35 Gm Tube) 1 appl TOPICAL BID PRN; Protocol PRN Reason: itching Hydromorphone HCl (Hydromorphone Hcl 0.5 Mg/0.5 Ml Syringe) 0.5 mg IVPUSH Q4H PRN; Protocol PRN Reason: Pain, Severe (Pain Scale 7-10) Last Admin: 09/18/24 13:04 Dose: 0.5 mg Documented By: SANJUANA Insulin Glargine (Insulin Glargine,Hum.Rec.Anlog 100 Unit/Ml 10 Ml Vial) 10 unit SUBCUT BEDTIME [facility] Last Admin: 09/17/24 21:46 Dose: 10 unit Documented By: SABA Insulin Human Lispro (Insulin Lispro 100 Unit/Ml 3 Ml Vial) 0 unit SUBCUT QIDACHS [facility]; Protocol Last Admin: 09/18/24 12:24 Dose: Not Given Documented By: SANJUANA Non-Admin Reason: No Insulin Coverage Levetiracetam (Levetiracetam 1,000 Mg Tablet) 1,000 mg PO BID [facility] Last Admin: 09/18/24 12:19 Dose: 1,000 mg Documented By: SANJUANA Levofloxacin (Levofloxacin 500 Mg Tablet) 500 mg PO Q48H [facility] Magnesium Hydroxide (Milk Of Magnesia 30 Ml Oral.Susp) 30 ml PO DAILY PRN PRN Reason: Constipation Last Admin: 09/06/24 17:00 Dose: 30 ml Documented By: COLBURK Melatonin (Melatonin 3 Mg Tablet) 6 mg PO BEDTIME PRN PRN Reason: Insomnia Last Admin: 09/15/24 22:21 Dose: 6 mg Documented By: CASTILM Metronidazole (Metronidazole 500 Mg Tablet) 500 mg PO Q12H [facility] Last Admin: 09/18/24 12:20 Dose: 500 mg Documented By: SANJUANA Omeprazole (Omeprazole 20 Mg Capsule.) 20 mg PO DAILY@0630 [facility] Last Admin: 09/18/24 03:20 Dose: 20 mg Documented By: JAYME Ondansetron HCl (Ondansetron Hcl 4 Mg/2 Ml Vial) 4 mg IVPUSH Q8H PRN PRN Reason: Nausea and Vomiting Oxycodone HCl (Oxycodone Hcl Immed Release 5 Mg Tablet) 10 mg PO Q3H PRN On Hold: 09/17/24 17:20 PRN Reason: Pain, Severe (Pain Scale 7-10) Last Admin: 09/16/24 22:29 Dose: 10 mg Documented By: SABA Pregabalin (Pregabalin 75 Mg Capsule) 75 mg PO DAILY [facility] Last Admin: 09/18/24 12:21 Dose: 75 mg Documented By: SANJUANA Sevelamer Carbonate (Sevelamer Carbonate Tablet 800 Mg Tablet) 800 mg PO TIDWM [facility] Last Admin: 09/18/24 12:21 Dose: 800 mg Documented By: SANJUANA Sodium Chloride (0.9 % Sodium Chloride Flush 3 Ml Syringe) 3 ml IVFLUSH QSHIFT [facility] Last Admin: 09/18/24 12:18 Dose: 3 ml Documented By: SANJUANA Sodium Zirconium Cyclosilicate (Sodium Zirconium Cyclosilicate 10 Gm Powd.Pack) 10 gm PO DAILY [facility] Last Admin: 09/18/24 08:29 Dose: 10 gm Documented By: GINLEYM Labs 09/17/24 05:47 09/18/24 12:29 Labs: Laboratory Results - last 24 hr 09/17/24 09/17/24 09/17/24 16:01 19:07 20:45 Anion Gap 23 H Estim Creat Clear Calc 7.4 Estimated GFR 6 POC Glucose 299 H 192 H Random Glucose 244 H Calcium 9.2 09/18/24 09/18/24 09/18/24 00:45 02:07 05:46 Anion Gap 20 Estim Creat Clear Calc 7.1 Estimated GFR 6 POC Glucose 165 H 166 H Random Glucose 115 Calcium 9.3 09/18/24 09/18/24 09/18/24 08:04 11:24 12:29 Anion Gap 16 Estim Creat Clear Calc 18.9 Estimated GFR 18 POC Glucose 128 H 92 Random Glucose 79 Calcium 9.2 Microbiology Microbiology Results: Microbiology 09/16/24 14:26 Gram Stain - Final Hand Right Routine Culture - Preliminary Gram negative jim 09/12/24 15:30 Gram Stain - Final Hand Right Routine Culture - Preliminary Proteus mirabilis Citrobacter freundii Gram negative jim Assessment and Plan (1) ESRD needing dialysis: Status: Acute (2) PVD (peripheral vascular disease): Status: Acute Plan d28 for 69yo M with DM2, ESRD on HD MWF, PVD, hx R BKA for limb ischemia 04/11/24, seizure disorder, HFrEF, HTN, HLD, chronic hypoxia on 2L O2, GERD, and ROBERT on CPAP presenting with pain/dry gangrene of R 2nd and 3rd fingers dry gangrene/ischemia of R 2nd + 3rd fingers - s/p R middle finger amputation at MCP and R index finger amputation at PIP 08/27/24 - s/p additional debridement and ray resection of R 3rd metacarpal head on 08/30/24 - s/p additional debridement 09/01 - s/p I+D and revision of amputation 09/09 - s/p transmetacarpal amputation of R 2nd, 4th, and 5th fingers 09/12 - s/p I+D and shortening of the 3rd and 4th metacarpal shafts to facilitate closure 09/14 - s/p I+D and revision amputation of the right 2nd and 3rd metacarpal legs to facilitate closure 09/16 - daily evaluation by Orthopedics - wound cultures grew Citrobacter freundii, Klebsiella oxytoca, and Proteus mirabilis - per ID will change to PO levofloxacin x 6 wk and metronidazole x 2 wk LLE dry gangrene - per Vascular Surgery; LLE with stable dry gangrene; no intervention at this time - per Wound Care: Left Posterior Calf - Cleanse with normal saline, pat dry. ?Apply barrier to the immediate erin wound, apply thick layer of Santyl to entire wound bed, cover with saline moist gauze, cover with dry gauze, ABD pad and gauze wrap, change Daily. Right AKA site - Cleanse with NS pat dry. Apply skin prep cover wound bed with dry gauze dressing. change every 3 days. Left [place] with Betadine allow to dry. May leave JARROD- if drainage occurs cover with dry gauze. [place] Daily. Right Fingers Defer to Surgery team for topical orders. ESRD on HD with hyperkalemia - HD MWF, sevelamer, furosemide; daily [place] acute encephalopathy due to infection vs hypoglycemia- resolved, hypoglycemia resolved, CT head negative HTN- losartan, amlodipine, doxazosin, carvedilol chronic hypoxic resp failure/ROBERT - 2L home O2, CPAP at night DM2 with hypoglycemia- basal-bolus insulin; hypoglycemia resolved seizure disorder- levetiracetam PVD- aspirin, atorvastatin neuropathy- pregabalin gout- allopurinol VTE ppx- heparin dispo- suspect will need STR for wound care In my clinical judgment, the patient requires continued inpatient hospitalization for the following reasons: IV ABX, surgical management Total time managing care of this patient today: 55 minutes. Quality Stroke Does the patient have a stroke diagnosis?: No VTE Prior VTE?: No VTE Risk Level:: Medical - moderate - high VTE Device Contraindication: Treatment Not Indicated VTE Drug Contraindication: N/A - Med Ordered
--- NOTE | 2024-09-18 14:28 | MHC.SLORD ---
Speech Language Pathology Order Status: Video And Sound Recorder services present to translate. Pt resting in bed, alert but fatigued. SEX CRIMES DETECTIVE reviewed recent note from prior SEX CRIMES DETECTIVE treatment, pt denied persisting dysphagia and refused any today as he is s/p surgery.
[2024-09-18] MEDS: Aspirin Enteric Coated 81 MG TABLET.DR PO (15:03)
[2024-09-18 16:32] LABS: Glucose, Whole Blood 152 mg/dL (60-115)
[2024-09-18 20:36] LABS: Glucose, Whole Blood 75 mg/dL (60-115)
--- NOTE | 2024-09-18 21:00 | PC.NURSE ---
2100: Insulin held for Blood sugar of 75, pt was given OJ with a packet of sugar in it, pt slept most of the night. 0500: blood sugar rechecked this AM at 65, pt was given more OJ and some annie crackers with jelly. Dr. Junior made aware, Will reassess. 0630: Rechecked at 96
[2024-09-19 03:03] VITALS: BP 156/80; PULSE 68; RESP 16; TEMP 37.4; O2SAT 94
[2024-09-19 05:49] LABS: Glucose, Whole Blood 65 mg/dL (60-115)
[2024-09-19 06:30] LABS: Hematocrit 30.0 % (42.0-52.0); Hemoglobin 9.1 g/dl (14.0-18.0); Mean Corpuscular HGB Conc 30.3 g/dl (31.0-36.0); Mean Corpuscular Hemoglobin 22.5 pg (27.0-33.0); Mean Corpuscular Volume 74.3 fL (80.0-98.0); NRBC Abs Auto 0.000 X10*3/uL (0.0-0.012); NRBC Pct Auto 0.0 /100WBC (0.0-0.2); Platelet Count 301 X10*3/uL (160-400); Red Blood Count 4.04 X10*6/uL (4.60-5.80); White Blood Count 12.4 X10*3/uL (4.8-10.8)
[2024-09-19 06:33] LABS: Glucose, Whole Blood 96 mg/dL (60-115)
[2024-09-19 06:38] LABS: Parathyroid Hormone Intact 205.0 pg/mL (8.7-77.1)
[2024-09-19 06:51] LABS: Anion Gap 18 (12-20); Blood Urea Nitrogen 45 mg/dL (9-16); Calcium 9.1 mg/dL (8.4-10.2); Carbon Dioxide 28 mmol/L (22-29); Chloride 96 mmol/L (96-108); Creatinine Clr Calc Pharmacy 10.8; Estimated Glomerular Filt Rate 10; Potassium 4.5 mmol/L (3.3-5.1); Sodium 137 mmol/L (135-145)
[2024-09-19 07:38] VITALS: BP 176/72; PULSE 64; RESP 18; TEMP 36.9; O2SAT 94
[2024-09-19 07:43] LABS: Glucose, Whole Blood 269 mg/dL (60-115)
[2024-09-19] MEDS: Aspirin Enteric Coated 81 MG TABLET.DR PO (08:02)
[2024-09-19] MEDS: Sevelamer Carbonate Tablet 800 MG TABLET PO ×3 (08:02→16:00)
--- NOTE | 2024-09-19 09:41 | P.PNNP_ITS ---
Subjective Subjective Date of Service: 09/19/24 Interval history: Blood pressures elevated Has had multiple I&D as well as revision amputation of second and third digit of right hand. patient denies concerns/new complaints. Reports he is aware his potassium was high and that he is no longer eating food brought in by family (has low K diet ordered). Reports ongoing hand pain. Denies other new complaints/symptoms. Physical Exam 2 Vital Signs: Vital Signs: Last Vital Signs Temp 98.5 F 09/19/24 07:38 Pulse 64 09/19/24 07:38 Resp 18 09/19/24 07:38 BP 176/72 H 09/19/24 07:38 Pulse Ox 94 09/19/24 07:38 O2 Del Method Room Air 09/19/24 07:38 O2 Flow Rate 2 09/18/24 19:28 BMI result Body Mass Index 27.3 Const: General: alert and awake Resp: Effort & Inspection: normal respiratory effort and able to speak in complete sentences Auscultation: clear to auscultation bilaterally Cardio: Rate: regular rate Rhythm: regular rhythm Heart sounds: S1 normal heart sound present and S2 normal heart sound present GI: Palpation (GI): Soft to palpation and nontender Skin: Wounds: wounds noted (right hand dressing- s/p amp, debridement of 2nd/3rd digits. ) Extrem: General: No edema and No pedal edema Objective Data Labs 09/19/24 05:59 09/19/24 05:59 Labs: Laboratory Results - last 24 hr 09/18/24 09/18/24 09/18/24 11:24 12:29 16:28 WBC RBC Hgb Hct MCV MCH MCHC RDW Plt Count MPV Absolute Nucleated RBC Nucleated RBC % (auto) Sodium 139 Potassium 3.3 D Chloride 96 Carbon Dioxide 30 H Anion Gap 16 BUN 23 H Creatinine 3.40 H Estim Creat Clear Calc 18.9 Estimated GFR 18 POC Glucose 92 152 H Random Glucose 79 Calcium 9.2 Phosphorus PTH Intact 09/18/24 09/19/24 09/19/24 20:22 05:44 05:59 WBC 12.4 H RBC 4.04 L Hgb 9.1 L Hct 30.0 L MCV 74.3 L MCH 22.5 L MCHC 30.3 L RDW 18.0 H Plt Count 301 D MPV 11.1 Absolute Nucleated RBC 0.000 Nucleated RBC % (auto) 0.0 Sodium 137 Potassium 4.5 D Chloride 96 Carbon Dioxide 28 Anion Gap 18 BUN 45 H Creatinine 5.91 H* Estim Creat Clear Calc 10.8 Estimated GFR 10 POC Glucose 75 65 Random Glucose 65 Calcium 9.1 Phosphorus 4.4 PTH Intact 205.0 H 09/19/24 09/19/24 06:29 07:30 WBC RBC Hgb Hct MCV MCH MCHC RDW Plt Count MPV Absolute Nucleated RBC Nucleated RBC % (auto) Sodium Potassium Chloride Carbon Dioxide Anion Gap BUN Creatinine Estim Creat Clear Calc Estimated GFR POC Glucose 96 269 H Random Glucose Calcium Phosphorus PTH Intact Microbiology Microbiology Results: Microbiology 09/16/24 14:26 Hand Right Gram Stain - Final 09/16/24 14:26 Hand Right Routine Culture - Final Citrobacter freundii 09/12/24 15:30 Hand Right Gram Stain - Final 09/12/24 15:30 Hand Right Routine Culture - Final Proteus mirabilis Citrobacter freundii Klebsiella oxytoca 09/12/24 15:28 Hand Right Gram Stain - Final 09/12/24 15:28 Hand Right Routine Culture - Final Proteus mirabilis Klebsiella oxytoca 09/09/24 13:00 Finger Gram Stain - Final 09/09/24 13:00 Finger Routine Culture - Final 08/22/24 14:52 Blood - Venous Blood Culture - Final No growth after 5 days. 08/22/24 14:20 Blood - Venous Blood Culture - Final No growth after 5 days. Procedures Date of Service Date of Service: 09/19/24 Assessment & Plan Assessment and plan (1) ESRD needing dialysis: Status: Acute Plan ESRD on HD MWF access: Right permcath appears euvolemic H&H 9.1 & 30- likely blood loss anemia from surgery, if persistent or Hgb drops will consider procrit injection phos is 4.4- continue sevelamer 800mg TID with meals. Calcium 9.1. PTH 205. Potassium 4.5 this a.m. low potassium, phosphorous, and sodium diet fluid restriction 1.5L continue to monitor electrolytes renal function studies daily blood pressures elevated- will consider lowering dry weight if persistent will continue to follow Discussed with Dr Jimenez Time Spent With Patient Time: Total time managing care of this patient today ____ minutes. Progress Note: Quality Stroke Does the patient have a stroke diagnosis?: No
--- NOTE | 2024-09-19 10:01 | PM.PNORT ---
Subjective Subjective Date of Service: 09/19/24 Interval history: 69-year-old male status post multiple surgeries over the last 3 weeks for necrotic digits of right hand, most recent revision I and D and revision amputation 09/16/[address] Rosales Patient is resting comfortably in bed No acute events overnight Pain appears well managed No other acute complaints Physical Exam Vital Signs: Vital Signs: Last Vital Signs Temp 98.5 F 09/19/24 07:38 Pulse 64 09/19/24 07:38 Resp 18 09/19/24 07:38 BP 176/72 H 09/19/24 07:38 Pulse Ox 94 09/19/24 07:38 O2 Del Method Room Air 09/19/24 07:38 O2 Flow Rate 2 09/18/24 19:28 BMI result Body Mass Index 27.3 Extrem: Other: Dressing on right hand clean, dry, intact Once dressing is removed, there is some drainage noted about the remaining open area of the incision No surrounding erythema noted Patient is able to flex and extend the remaining digits of the right hand without difficulty Compartments soft, nontender Distal sensation intact Capillary refill brisk Procedures Date of Service Date of Service: 09/19/24 Progress Note: A&P Assessment and plan (1) Necrosis of finger: Status: Acute (2) Dry gangrene: Status: Acute Plan Continue pain management Dressing changed in packing pulled today without issue Daily dressing changes per nursing with Xeroform, fluffs, Kerlix, Javy bandage Dressings should always be loose, applying as little pressure as possible to the wound, to prevent blood flow restriction and to try to mitigate risk of any further necrosis Continue antibiotics Continue with all other recommendations per Medicine Orthopedics will continue to follow Time Spent With Patient Time: Total time managing care of this patient today ____ minutes. Quality Stroke Does the patient have a stroke diagnosis?: No VTE Prior VTE?: No VTE Risk Level:: Medical - moderate - high VTE Device Contraindication: Treatment Not Indicated VTE Drug Contraindication: N/A - Med Ordered
[2024-09-19 11:09] VITALS: BP 156/71; PULSE 64; RESP 16; TEMP 36.7; O2SAT 95
[2024-09-19 11:10] LABS: Glucose, Whole Blood 68 mg/dL (60-115)
--- NOTE | 2024-09-19 11:13 | PC.NURSE ---
Addendum entered by Hao Barron RN 09/19/24 12:05: adjusted sliding scale dose by decrease the amt of insulin required for blood sugar level Original Note: pt poc 68, asymptomatic, pt eating at this time. will recheck poc afterwards
--- NOTE | 2024-09-19 11:43 | HO.PM.IMPN ---
Subjective Subjective Date of Service: 09/19/24 Interval History: This history was taken in Irish from the patient. Pain controlled. K normalized after HD. Review of Systems Review of Systems: Yes all other systems are reviewed and are negative Physical Exam Vital Signs: Vital Signs: Last Vital Signs Temp 98.1 F 09/19/24 11:09 Pulse 64 09/19/24 11:09 Resp 16 09/19/24 11:09 BP 156/71 H 09/19/24 11:09 Pulse Ox 95 09/19/24 11:09 O2 Del Method Room Air 09/19/24 11:09 O2 Flow Rate 2 09/18/24 19:28 BMI result Body Mass Index 27.3 Gen: in no acute distress HEENT: sclera anicteric, moist mucus membranes Neck: supple Lungs: clear to auscultation bilaterally Heart: regular rate and rhythm, no murmurs Abd: soft, non-tender, non-distended Ext: no edema, R hand s/p 2nd + 3rd finger amputations and in dry dressing; s/p R BKA Skin: warm/well-perfused Neuro: alert and oriented x3, no focal findings Psych: appropriate affect Objective Data Active Medications Acetaminophen (Acetaminophen 325 Mg Tablet) 975 mg PO Q6H PRN PRN Reason: Pain, Mild 1-3,fever,headache Last Admin: 09/17/24 17:39 Dose: 975 mg Albuterol Sulfate (Albuterol Sulfate 90 Mcg 8 Gm Inhaler) 2 puff INHALE Q4H PRN PRN Reason: Wheezing Allopurinol (Allopurinol 100 Mg Tablet) 100 mg PO MOWEFR@1600 [facility] Last Admin: 09/18/24 15:03 Dose: 100 mg Documented By: SANJUANA Amlodipine Besylate (Amlodipine Besylate 10 Mg Tablet) 10 mg PO DAILY [facility]; Protocol Last Admin: 09/19/24 08:01 Dose: 10 mg Documented By: SHITAL Aspirin (Aspirin Enteric Coated 81 Mg Tablet.) 81 mg PO MOWEFR@1600 [facility] Last Admin: 09/18/24 15:03 Dose: 81 mg Documented By: SANJUANA Aspirin (Aspirin Enteric Coated 81 Mg Tablet.) 81 mg PO SUTUTHSA@0900 [facility] Last Admin: 09/19/24 08:02 Dose: 81 mg Documented By: SHITAL Atorvastatin Calcium (Atorvastatin Calcium 40 Mg Tablet) 40 mg PO MOWEFR@1600 [facility] Last Admin: 09/18/24 15:03 Dose: 40 mg Documented By: SANJUANA Atorvastatin Calcium (Atorvastatin Calcium 40 Mg Tablet) 40 mg PO SUTUTHSA@0900 [facility] Last Admin: 09/19/24 08:02 Dose: 40 mg Documented By: SHITAL Calcium Carbonate (Calcium Carbonate 750 Mg Tab.Chew) 750 mg PO Q4H PRN PRN Reason: Heartburn Carvedilol (Carvedilol 25 Mg Tablet) 25 mg PO BID [facility]; Protocol Last Admin: 09/19/24 08:02 Dose: 25 mg Documented By: SHITAL Collagenase (Collagenase Clostridium Hist. 30 Gm Tube) 1 appl TOPICAL DAILY [facility] Last Admin: 09/19/24 08:03 Dose: 1 appl Documented By: SHITAL Dextrose (Dextrose 50 % 25 Gm/50 Ml Syringe) 25 gm IVPUSH Q15M PRN; Protocol PRN Reason: per Hypoglycemia Standing Ord. Last Admin: 09/16/24 16:22 Dose: 25 gm Documented By: ROXANNE Docusate Sodium (Docusate Sodium 100 Mg Capsule) 100 mg PO DAILY [facility] Last Admin: 09/19/24 08:02 Dose: 100 mg Documented By: SHITAL Doxazosin Mesylate (Doxazosin Mesylate 2 Mg Tablet) 4 mg PO BEDTIME [facility]; Protocol Last Admin: 09/18/24 21:08 Dose: 4 mg Documented By: OWEN Fluticasone/Umeclidinium/Vilanterol (Fluticasone/Umeclidinium/Vilanterol 100/62.5/25 Blst.W.Dev) 1 puff INHALE RDAILY [facility] Last Admin: 09/18/24 09:15 Dose: 1 puff Documented By: OSCAR Furosemide (Furosemide 40 Mg Tablet) 80 mg PO MOWEFR@1600 [facility]; Protocol Last Admin: 09/18/24 15:02 Dose: 80 mg Documented By: SANJUANA Furosemide (Furosemide 40 Mg Tablet) 80 mg PO SUTUTHSA@0900 [facility]; Protocol Last Admin: 09/19/24 08:02 Dose: 80 mg Documented By: SHITAL Glucose (Glucose Gel 15 Gm Gel..Gram.) 15 gm PO Q15M PRN PRN Reason: per Hypoglycemia Standing Ord. Last Admin: 08/25/24 04:50 Dose: 15 gm Documented By: HENRIETTA Heparin Sodium (Porcine) (Heparin Sodium,Porcine 5,000 Unit/Ml Vial) 5,000 unit SUBCUT Q12H [facility] Last Admin: 09/19/24 10:00 Dose: 5,000 unit Documented By: SHITAL Hydrocortisone (Hydrocortisone 1 % Ointment 28.35 Gm Tube) 1 appl TOPICAL BID PRN; Protocol PRN Reason: itching Hydromorphone HCl (Hydromorphone Hcl 0.5 Mg/0.5 Ml Syringe) 0.5 mg IVPUSH Q4H PRN; Protocol PRN Reason: Pain, Severe (Pain Scale 7-10) Last Admin: 09/19/24 09:58 Dose: 0.5 mg Documented By: SHITAL Insulin Glargine (Insulin Glargine,Hum.Rec.Anlog 100 Unit/Ml 10 Ml Vial) 10 unit SUBCUT BEDTIME [facility] Last Admin: 09/18/24 21:00 Dose: Not Given Documented By: OWEN Non-Admin Reason: POC 75 Insulin Human Lispro (Insulin Lispro 100 Unit/Ml 3 Ml Vial) 0 unit SUBCUT QIDACHS [facility]; Protocol Last Admin: 09/19/24 11:12 Dose: Not Given Documented By: SHITAL Non-Admin Reason: low poc Levetiracetam (Levetiracetam 1,000 Mg Tablet) 1,000 mg PO BID [facility] Last Admin: 09/19/24 08:02 Dose: 1,000 mg Documented By: SHITAL Levofloxacin (Levofloxacin 500 Mg Tablet) 500 mg PO Q48H [facility] Magnesium Hydroxide (Milk Of Magnesia 30 Ml Oral.Susp) 30 ml PO DAILY PRN PRN Reason: Constipation Last Admin: 09/06/24 17:00 Dose: 30 ml Documented By: COLBURJoey Melatonin (Melatonin 3 Mg Tablet) 6 mg PO BEDTIME PRN PRN Reason: Insomnia Last Admin: 09/18/24 21:07 Dose: 6 mg Documented By: OWEN Metronidazole (Metronidazole 500 Mg Tablet) 500 mg PO Q12H [facility] Last Admin: 09/19/24 08:02 Dose: 500 mg Documented By: SHITAL Omeprazole (Omeprazole 20 Mg Capsule.) 20 mg PO DAILY@0630 [facility] Last Admin: 09/19/24 05:33 Dose: 20 mg Documented By: OWEN Ondansetron HCl (Ondansetron Hcl 4 Mg/2 Ml Vial) 4 mg IVPUSH Q8H PRN PRN Reason: Nausea and Vomiting Oxycodone HCl (Oxycodone Hcl Immed Release 5 Mg Tablet) 10 mg PO Q3H PRN On Hold: 09/17/24 17:20 PRN Reason: Pain, Severe (Pain Scale 7-10) Last Admin: 09/16/24 22:29 Dose: 10 mg Documented By: SABA Pregabalin (Pregabalin 75 Mg Capsule) 75 mg PO DAILY [facility] Last Admin: 09/19/24 08:02 Dose: 75 mg Documented By: SHTIAL Sevelamer Carbonate (Sevelamer Carbonate Tablet 800 Mg Tablet) 800 mg PO TIDWM [facility] Last Admin: 09/19/24 08:02 Dose: 800 mg Documented By: SHITAL Sodium Chloride (0.9 % Sodium Chloride Flush 3 Ml Syringe) 3 ml IVFLUSH QSHIFT [facility] Last Admin: 09/19/24 07:10 Dose: Not Given Documented By: SHITAL Non-Admin Reason: Previously Administered Sodium Zirconium Cyclosilicate (Sodium Zirconium Cyclosilicate 10 Gm Powd.Pack) 10 gm PO DAILY [facility] Last Admin: 09/19/24 08:02 Dose: 10 gm Documented By: SHITAL Labs 09/19/24 05:59 09/19/24 05:59 Labs: Laboratory Results - last 24 hr 09/18/24 09/18/24 09/18/24 12:29 16:28 20:22 MCV MCH MCHC RDW Plt Count MPV Absolute Nucleated RBC Nucleated RBC % (auto) Anion Gap 16 Estim Creat Clear Calc 18.9 Estimated GFR 18 POC Glucose 152 H 75 Random Glucose 79 Calcium 9.2 Phosphorus PTH Intact 09/19/24 09/19/24 09/19/24 05:44 05:59 06:29 MCV 74.3 L MCH 22.5 L MCHC 30.3 L RDW 18.0 H Plt Count 301 D MPV 11.1 Absolute Nucleated RBC 0.000 Nucleated RBC % (auto) 0.0 Anion Gap 18 Estim Creat Clear Calc 10.8 Estimated GFR 10 POC Glucose 65 96 Random Glucose 65 Calcium 9.1 Phosphorus 4.4 PTH Intact 205.0 H 09/19/24 09/19/24 07:30 11:04 MCV MCH MCHC RDW Plt Count MPV Absolute Nucleated RBC Nucleated RBC % (auto) Anion Gap Estim Creat Clear Calc Estimated GFR POC Glucose 269 H 68 Random Glucose Calcium Phosphorus PTH Intact Microbiology Microbiology Results: Microbiology 09/16/24 14:26 Gram Stain - Final Hand Right Routine Culture - Final Citrobacter freundii 09/12/24 15:30 Gram Stain - Final Hand Right Routine Culture - Final Proteus mirabilis Citrobacter freundii Klebsiella oxytoca Assessment and Plan (1) ESRD needing dialysis: Status: Acute (2) PVD (peripheral vascular disease): Status: Acute Plan d29 for 69yo M with DM2, ESRD on HD MWF, PVD, hx R BKA for limb ischemia 04/11/24, seizure disorder, HFrEF, HTN, HLD, chronic hypoxia on 2L O2, GERD, and ROBERT on CPAP presenting with pain/dry gangrene of R 2nd and 3rd fingers dry gangrene/ischemia of R 2nd + 3rd fingers - s/p R middle finger amputation at MCP and R index finger amputation at PIP 08/27/24 - s/p additional debridement and ray resection of R 3rd metacarpal head on 08/30/24 - s/p additional debridement 09/01 - s/p I+D and revision of amputation 09/09 - s/p transmetacarpal amputation of R 2nd, 4th, and 5th fingers 09/12 - s/p I+D and shortening of the 3rd and 4th metacarpal shafts to facilitate closure 09/14 - s/p I+D and revision amputation of the right 2nd and 3rd metacarpal legs to facilitate closure 09/16 - daily evaluation by Orthopedics; dressing changes per nursing with Xeroform, fluffs, Kerlix, Javy bandage; no further operative intervention planend at this time - wound cultures grew Citrobacter freundii, Klebsiella oxytoca, and Proteus mirabilis - per ID will change to PO levofloxacin x 6 wk and metronidazole x 2 wk, change made 09/18 LLE dry gangrene - per Vascular Surgery; LLE with stable dry gangrene; no intervention at this time - per Wound Care: Left Posterior Calf - Cleanse with normal saline, pat dry. ?Apply barrier to the immediate erin wound, apply thick layer of Santyl to entire wound bed, cover with saline moist gauze, cover with dry gauze, ABD pad and gauze wrap, change Daily. Right AKA site - Cleanse with NS pat dry. Apply skin prep cover wound bed with dry gauze dressing. change every 3 days. Left Great Toe - [place] with Betadine allow to dry. May leave JARROD- if drainage occurs cover with dry gauze. [place] Daily. Right Fingers Defer to Surgery team for topical orders. ESRD on HD with hyperkalemia - HD MWF, sevelamer, furosemide; daily Lokelma Resolved issues acute encephalopathy due to infection vs hypoglycemia- resolved, hypoglycemia resolved, CT head negative Chronic issues HTN- losartan, amlodipine, doxazosin, carvedilol chronic hypoxic resp failure/ROBERT - 2L home O2, CPAP at night DM2 with hypoglycemia- basal-bolus insulin; hypoglycemia resolved seizure disorder- levetiracetam PVD- aspirin, atorvastatin neuropathy- pregabalin gout- allopurinol VTE ppx- heparin dispo- PT/OT for dispo planning In my clinical judgment, the patient requires continued inpatient hospitalization for the following reasons: postoperative care Total time managing care of this patient today: 45 minutes. Quality Stroke Does the patient have a stroke diagnosis?: No VTE Prior VTE?: No VTE Risk Level:: Medical - moderate - high VTE Device Contraindication: Treatment Not Indicated VTE Drug Contraindication: N/A - Med Ordered
[2024-09-19 11:52] LABS: Glucose, Whole Blood 156 mg/dL (60-115)
--- NOTE | 2024-09-19 14:10 | MHC.SL.SWA ---
Risk of Aspiration Due to: altered mental status/confusion Dysphasia Diet Status: regular/thin Liquid Consistency and Strategies for Safe Swallow: Liquid Intake Recommendation: Thin Solid Food Consistency: Dietary Recommendations: Regular Additional Modifications to Solid Foods: Mastication is mildly prolonged in setting of missing teeth, with mild oral residue post-swallow, which cleared with liquid wash. Otherwise oral and pharyngeal phase of the swallow is functional. No overt s/s of aspiration seen. Oral Medication Intake: Whole with Liquid Please contact the pharmacy regarding appropriate crushable or liquid drug formulations that are available whenever modified delivery is recommended. Compensatory Strategies and Precautions to be Taken for Safe Swallow: Sitting Upright (90 deg) Small Bites and Sips Alternate Liquids/Solids Oral Check Recommendation for Speech: D/c Inpatient Speech Therapy Comment: Recommend pt continue w/ regular solids, thin liquids, pills whole w/ liquid and 1-1 assistance feeding. Do not leave tray w/ pt w/o supervision d/t varying confusion and alertness. During times of increased confusion, consider crushing pills if possible to prevent pt from chewing pills. Do not feed pt if he is not alert and engaged with staff/PO. No further DOOR TENDER tx warranted at this time. Please re-refer if needed. Optical Model Maker And Tester Clinican/Clinical Fellow: No Supervisory Statement: I have reviewed and agree with the student/clinical fellow's documentation: N/A Speech Language Pathologist: Janae Seaman M.A., CCC-DOOR TENDER
[2024-09-19 15:24] VITALS: BP 133/68; PULSE 61; RESP 18; TEMP 36.9; O2SAT 100
[2024-09-19 15:46] LABS: Glucose, Whole Blood 166 mg/dL (60-115)
[2024-09-19 19:20] VITALS: BP 140/80; PULSE 60; RESP 18; TEMP 36.4; O2SAT 99
[2024-09-19 20:13] LABS: Glucose, Whole Blood 133 mg/dL (60-115)
[2024-09-19] MEDS: Insulin Glargine,Hum.rec.anlog 100 UNIT/ML 10 ML VIAL 10 UNIT SUBCUT (20:55)
[2024-09-19 23:40] VITALS: BP 162/68; PULSE 60; RESP 16; TEMP 36.9; O2SAT 96
[2024-09-19] MEDS: 0.9 % Sodium Chloride Flush 3 ML SYRINGE IVFLUSH (23:40)
[2024-09-20] VITALS (7 sets, daily range): BP systolic 151–178; BP diastolic 67–98; PULSE 57–68; RESP 14–18; TEMP 36.5–37.1; O2SAT 94–100
[2024-09-20] MEDS: oxyCODONE HCl Immed Release 5 MG TABLET 10 MG PO ×4 (07:37→22:08)
[2024-09-20 08:07] LABS: Glucose, Whole Blood 84 mg/dL (60-115)
--- NOTE | 2024-09-20 08:29 | PM.PNORT ---
Subjective Subjective Date of Service: 09/20/24 Interval history: 69-year-old male status post multiple surgeries over the last 3 weeks for necrotic digits of right hand, most recent revision I and D and revision amputation 09/16/[address] Rosales Patient is resting comfortably in bed in dialysis No acute events overnight Pain appears well managed No other acute complaints Physical Exam Vital Signs: Vital Signs: Last Vital Signs Temp 97.7 F 09/20/24 05:15 Pulse 59 09/20/24 05:15 Resp 18 09/20/24 05:15 BP 151/98 H 09/20/24 05:15 Pulse Ox 98 09/20/24 05:15 O2 Del Method Nasal Cannula 09/20/24 05:15 O2 Flow Rate 2 09/20/24 05:15 BMI result Body Mass Index 27.3 Extrem: Other: right hand dressing is clean, dry and intact. Procedures Date of Service Date of Service: 09/20/24 Progress Note: A&P Assessment and plan (1) Necrosis of finger: Status: Acute (2) Dry gangrene: Status: Acute Plan Continue pain management Daily dressing changes per nursing with Xeroform, fluffs, Kerlix, Javy bandage Dressings should always be loose, applying as little pressure as possible to the wound, to prevent blood flow restriction and to try to mitigate risk of any further necrosis Continue antibiotics Continue with all other recommendations per Medicine Orthopedics will continue to follow Time Spent With Patient Time: Total time managing care of this patient today ____ minutes. Quality Stroke Does the patient have a stroke diagnosis?: No VTE Prior VTE?: No VTE Risk Level:: Medical - moderate - high VTE Device Contraindication: Treatment Not Indicated VTE Drug Contraindication: N/A - Med Ordered
[2024-09-20 08:50] LABS: Hematocrit 28.5 % (42.0-52.0); Hemoglobin 8.9 g/dl (14.0-18.0); Mean Corpuscular HGB Conc 31.2 g/dl (31.0-36.0); Mean Corpuscular Hemoglobin 22.6 pg (27.0-33.0); Mean Corpuscular Volume 72.5 fL (80.0-98.0); NRBC Abs Auto 0.000 X10*3/uL (0.0-0.012); NRBC Pct Auto 0.0 /100WBC (0.0-0.2); Platelet Count 258 X10*3/uL (160-400); Red Blood Count 3.93 X10*6/uL (4.60-5.80); White Blood Count 11.2 X10*3/uL (4.8-10.8)
--- NOTE | 2024-09-20 09:06 | W.PM.DNNEP ---
Subjective Subjective Date of Service: 09/20/24 This patient was seen during dialysis. Interval history: following for management of ESRD on HD while here for treatment of dry gangrene and ischemia of right 2nd and third digits; ongoing surgical interventions for ischemia. patient is resting comfortably during treatment. Physical Exam Vital Signs: Vital Signs: Last Vital Signs Temp 97.7 F 09/20/24 05:15 Pulse 59 09/20/24 05:15 Resp 18 09/20/24 05:15 BP 151/98 H 09/20/24 05:15 Pulse Ox 98 09/20/24 05:15 O2 Del Method Nasal Cannula 09/20/24 05:15 O2 Flow Rate 2 09/20/24 05:15 BMI result Body Mass Index 27.3 Const: General: alert and awake Resp: Effort & Inspection: normal respiratory effort and able to speak in complete sentences Auscultation: clear to auscultation bilaterally Cardio: Rate: regular rate Rhythm: regular rhythm Heart sounds: S1 normal heart sound present and S2 normal heart sound present GI: Palpation (GI): Soft to palpation and nontender Skin: Wounds: wounds noted (right hand dressing- s/p amp, debridement of 2nd/3rd digits. ) Extrem: General: No edema and No pedal edema Assessment & Plan Assessment and plan (1) ESRD needing dialysis: Status: Acute Plan ESRD on HD MWF access: Right permcath appears euvolemic H&H 9.1 & 30- likely blood loss anemia from surgery, if persistent or Hgb drops will consider procrit injection phos is 4.4- continue sevelamer 800mg TID with meals. Calcium 9.1. PTH 205. Given ongoing hyperkalemia, patient was switched to 2K bath for first 2 hours of treatment and 1K bath for remaining 1.5 hours; first trial on 09/18 controlled potassium, will continue going forward and continue to monitor potassium. May d/c [place]. low potassium, phosphorous, and sodium diet fluid restriction 1.5L continue to monitor electrolytes renal function studies daily blood pressures elevated- will consider lowering dry weight if persistent will continue to follow Discussed with Dr Jimenez Time Spent With Patient Time: Total time managing care of this patient today ____ minutes. Procedures Date of Service Date of Service: 09/20/24
[2024-09-20 09:11] LABS: Anion Gap 21 (12-20); Blood Urea Nitrogen 60 mg/dL (9-16); Calcium 8.6 mg/dL (8.4-10.2); Carbon Dioxide 23 mmol/L (22-29); Chloride 95 mmol/L (96-108); Creatinine Clr Calc Pharmacy 9.2; Estimated Glomerular Filt Rate 8; Potassium 4.8 mmol/L (3.3-5.1); Sodium 134 mmol/L (135-145)
--- NOTE | 2024-09-20 10:13 | P.PNVS_ITS ---
Subjective Subjective Date of Service: 09/20/24 Patient reports: no new complaints and still having pain Interval history: Patient seen and examined. He was in dialysis at the time of my exam. No interval issues. He does appear to be somewhat lethargic but complaining of pain. He now presents for vascular follow-up. Physical Exam Vital Signs: Vital Signs: Last Vital Signs Temp 97.7 F 09/20/24 05:15 Pulse 59 09/20/24 05:15 Resp 18 09/20/24 05:15 BP 151/98 H 09/20/24 05:15 Pulse Ox 98 09/20/24 05:15 O2 Del Method Nasal Cannula 09/20/24 05:15 O2 Flow Rate 2 09/20/24 05:15 BMI result Body Mass Index 27.3 Const: General: cooperative, healthy appearing and comfortable Orientation/consciousness: oriented to person, oriented to place and oriented to time HEENT: Head: Yes normal to inspection Neck: Neck: Yes normal visual inspection Carotids: no bruits Chest: Chest palpation & inspection: normal inspection of the chest Resp: Effort & Inspection: normal respiratory effort and able to speak in c omplete sentences Auscultation: clear to auscultation bilaterally, no crackles, no rales, no rhonchi and no wheezes Cardio: Rate: regular rate Rhythm: regular rhythm Heart sounds: S1 normal heart sound present and S2 normal heart sound present Bruits: no carotid bruits Peripheral pulses: Peripheral pulses 2+ throughout GI: Inspection: Yes normal to inspection Skin: Other: Left calf dressing intact. Left great toe dry gangrene. Right upper extremity dressing clean dry intact with Javy wrap Wounds: no wounds Hair: normal Neuro: General: oriented to person, oriented to place and oriented to time Cranial nerves: Yes CN's II-XII intact bilaterally and Yes Normal hearing present Cognition (Neuro): normal cognition Motor exam (neuro): 5/5 motor strength present throughout Extrem: Other: venous exam: No significant superficial varicosities or spider telangiectasias, minimal edema General: No clubbing, No cyanosis and No edema Psych: Appearance: grossly normal Mental Status: mental status grossly normal Speech and movement: Normal speech and movement present Progress Note: A&P Assessment and plan (1) PVD (peripheral vascular disease): Status: Acute Assessment and Plan: In short patient has nonhealing ulcer of left great toe and left posterior calf. I would like to hand to heal up 1st. I do recognize it may be a source of pain. Unfortunately we may be committing him to an amputation here but due to his overall condition may be the best option. We will see how his hand progresses. In terms of his leg and foot this can all be addressed as an outpatient once he is discharged. Thank you for allowing us to assist in his care. If there are any questions or concerns please do not hesitate to contact us. Time Spent With Patient Time: Total time managing care of this patient today ____ minutes. Procedures Date of Service Date of Service: 09/20/24 Quality Stroke Does the patient have a stroke diagnosis?: No VTE Prior VTE?: No VTE Risk Level:: Medical - moderate - high VTE Device Contraindication: Treatment Not Indicated VTE Drug Contraindication: N/A - Med Ordered
--- NOTE | 2024-09-20 10:48 | MHC.CLN ---
NUTRITION PATIENT WITH ESRD RECEIVING HEMODIALYSIS. PER NEPHROLOGY NOTE 1500 ML FLUID RESTRICTION. DIET=DIABETIC 2000 KCALS, LOW POTASSIUM, LOW PHOSPHORUS, 2 GRAM SODIUM, 1500 ML FR.
--- NOTE | 2024-09-20 11:18 | HO.PM.IMPN ---
Subjective Subjective Date of Service: 09/20/24 Interval History: in HD today hand pain controlled Review of Systems Review of Systems: Yes all other systems are reviewed and are negative Physical Exam Vital Signs: Vital Signs: Last Vital Signs Temp 97.7 F 09/20/24 05:15 Pulse 59 09/20/24 05:15 Resp 18 09/20/24 05:15 BP 151/98 H 09/20/24 05:15 Pulse Ox 98 09/20/24 05:15 O2 Del Method Nasal Cannula 09/20/24 05:15 O2 Flow Rate 2 09/20/24 05:15 BMI result Body Mass Index 27.3 Gen: in no acute distress HEENT: sclera anicteric, moist mucus membranes Neck: supple Lungs: clear to auscultation bilaterally Heart: regular rate and rhythm, no murmurs Abd: soft, non-tender, non-distended Ext: no edema, R hand transmetacarpal amputations of 2nd-5th fingers; s/p R BKA Skin: warm/well-perfused Neuro: alert and oriented x3, no focal findings Psych: appropriate affect Objective Data Active Medications Acetaminophen (Acetaminophen 325 Mg Tablet) 975 mg PO Q6H PRN PRN Reason: Pain, Mild 1-3,fever,headache Last Admin: 09/17/24 17:39 Dose: 975 mg Albuterol Sulfate (Albuterol Sulfate 90 Mcg 8 Gm Inhaler) 2 puff INHALE Q4H PRN PRN Reason: Wheezing Allopurinol (Allopurinol 100 Mg Tablet) 100 mg PO MOWEFR@1600 [facility], [facility] Last Admin: 09/18/24 15:03 Dose: 100 mg Documented By: SANJUANA Amlodipine Besylate (Amlodipine Besylate 10 Mg Tablet) 10 mg PO DAILY [facility], [facility]; Protocol Last Admin: 09/20/24 07:43 Dose: Not Given Documented By: JAYME Non-Admin Reason: Off unit: Dialysis Aspirin (Aspirin Enteric Coated 81 Mg Tablet.) 81 mg PO MOWEFR@1600 [facility], [facility]1983 Last Admin: 09/18/24 15:03 Dose: 81 mg Documented By: SANJUANA Aspirin (Aspirin Enteric Coated 81 Mg Tablet.) 81 mg PO SUTUTHSA@0900 [facility], [facility]1983 Last Admin: 09/19/24 08:02 Dose: 81 mg Documented By: SHITAL Atorvastatin Calcium (Atorvastatin Calcium 40 Mg Tablet) 40 mg PO MOWEFR@1600 NASREEN Last Admin: 09/18/24 15:03 Dose: 40 mg Documented By: SANJUANA Atorvastatin Calcium (Atorvastatin Calcium 40 Mg Tablet) 40 mg PO SUTUTHSA@0900 [facility], [facility]1983 Last Admin: 09/19/24 08:02 Dose: 40 mg Documented By: SHITAL Calcium Carbonate (Calcium Carbonate 750 Mg Tab.Chew) 750 mg PO Q4H PRN PRN Reason: Heartburn Carvedilol (Carvedilol 25 Mg Tablet) 25 mg PO BID NASREEN; Protocol Last Admin: 09/20/24 07:43 Dose: Not Given Documented By: JAYME Non-Admin Reason: Off unit: Dialysis Collagenase (Collagenase Clostridium Hist. 30 Gm Tube) 1 appl TOPICAL DAILY [facility], [facility] Last Admin: 09/19/24 08:03 Dose: 1 appl Documented By: SHITAL Dextrose (Dextrose 50 % 25 Gm/50 Ml Syringe) 25 gm IVPUSH Q15M PRN; Protocol PRN Reason: per Hypoglycemia Standing Ord. Last Admin: 09/16/24 16:22 Dose: 25 gm Documented By: ROXANNE Docusate Sodium (Docusate Sodium 100 Mg Capsule) 100 mg PO DAILY [facility], [facility] Last Admin: 09/20/24 07:43 Dose: Not Given Documented By: JAYME Non-Mt Reason: Off unit: Dialysis Doxazosin Mesylate (Doxazosin Mesylate 2 Mg Tablet) 8 mg PO BEDTIME [facility], [facility]1983; Protocol Last Admin: 09/19/24 20:55 Dose: 8 mg Documented By: PATRICIA Fluticasone/Umeclidinium/Vilanterol (Fluticasone/Umeclidinium/Vilanterol 100/62.5/25 Blst.W.Dev) 1 puff INHALE RDAILY [facility], [facility]1983 Last Admin: 09/20/24 08:02 Dose: Not Given Documented By: LEYDI Non-Admin Reason: Not In Room Furosemide (Furosemide 40 Mg Tablet) 80 mg PO MOWEFR@1600 NASREEN; Protocol Last Admin: 09/18/24 15:02 Dose: 80 mg Documented By: SANJUANA Furosemide (Furosemide 40 Mg Tablet) 80 mg PO SUTUTHSA@0900 [facility], [facility]1983; Protocol Last Admin: 09/19/24 08:02 Dose: 80 mg Documented By: SHITAL Glucose (Glucose Gel 15 Gm Gel..Gram.) 15 gm PO Q15M PRN PRN Reason: per Hypoglycemia Standing Ord. Last Admin: 08/25/24 04:50 Dose: 15 gm Documented By: HENRIETTA Heparin Sodium (Porcine) (Heparin Sodium,Porcine 5,000 Unit/Ml Vial) 5,000 unit SUBCUT Q12H [facility], [facility] Last Admin: 09/20/24 10:50 Dose: 5,000 unit Documented By: JAYME Hydrocortisone (Hydrocortisone 1 % Ointment 28.35 Gm Tube) 1 appl TOPICAL BID PRN; Protocol PRN Reason: itching Insulin Glargine (Insulin Glargine,Hum.Rec.Anlog 100 Unit/Ml 10 Ml Vial) 10 unit SUBCUT BEDTIME [facility], [facility] Last Admin: 09/19/24 20:55 Dose: 10 unit Documented By: PATRICIA Insulin Human Lispro (Insulin Lispro 100 Unit/Ml 3 Ml Vial) 0 unit SUBCUT QIDACHS [facility], [facility]; Protocol Last Admin: 09/20/24 08:21 Dose: Not Given Documented By: JAYME Non-Admin Reason: No Insulin Coverage Levetiracetam (Levetiracetam 1,000 Mg Tablet) 1,000 mg PO BID [facility], [facility] Last Admin: 09/20/24 07:43 Dose: Not Given Documented By: JAYME Non-Admin Reason: Off unit: Dialysis Levofloxacin (Levofloxacin 500 Mg Tablet) 500 mg PO Q48H [facility], [facility] Last Admin: 09/20/24 07:38 Dose: 500 mg Documented By: JAYME Magnesium Hydroxide (Milk Of Magnesia 30 Ml Oral.Susp) 30 ml PO DAILY PRN PRN Reason: Constipation Last Admin: 09/06/24 17:00 Dose: 30 ml Documented By: COLBURJoey Melatonin (Melatonin 3 Mg Tablet) 6 mg PO BEDTIME PRN PRN Reason: Insomnia Last Admin: 09/19/24 20:55 Dose: 6 mg Documented By: PATRICIA Metronidazole (Metronidazole 500 Mg Tablet) 500 mg PO Q12H [facility], [facility] Last Admin: 09/20/24 07:43 Dose: Not Given Documented By: JAYME Non-Admin Reason: Off unit: Dialysis Omeprazole (Omeprazole 20 Mg Marilyn.) 20 mg PO DAILY@0630 [facility], [facility] Last Admin: 09/20/24 05:30 Dose: 20 mg Documented By: OWEN Ondansetron HCl (Ondansetron Hcl 4 Mg/2 Ml Vial) 4 mg IVPUSH Q8H PRN PRN Reason: Nausea and Vomiting Oxycodone HCl (Oxycodone Hcl Immed Release 5 Mg Tablet) 10 mg PO Q4H PRN PRN Reason: Pain, Severe (Pain Scale 7-10) Last Admin: 09/20/24 10:50 Dose: 10 mg Documented By: JAYME Pregabalin (Pregabalin 75 Mg Capsule) 75 mg PO DAILY [facility] Last Admin: 09/20/24 07:43 Dose: Not Given Documented By: JAYME Non-Admin Reason: Off unit: Dialysis Sevelamer Carbonate (Sevelamer Carbonate Tablet 800 Mg Tablet) 800 mg PO TIDWM [facility], [facility] Last Admin: 09/20/24 07:43 Dose: Not Given Documented By: JAYME Non-Admin Reason: Off unit: Dialysis Sodium Chloride (0.9 % Sodium Chloride Flush 3 Ml Syringe) 3 ml IVFLUSH QSHIFT [facility] Last Admin: 09/20/24 07:42 Dose: Not Given Documented By: JAYME Non-Admin Reason: Off unit: Dialysis Sodium Zirconium Cyclosilicate (Sodium Zirconium Cyclosilicate 10 Gm Powd.Pack) 10 gm PO DAILY [facility]1983 On Hold: 09/19/24 13:48 Last Admin: 09/19/24 08:02 Dose: 10 gm Documented By: SCOTTFAA Labs 09/20/24 08:36 09/20/24 08:36 Labs: Laboratory Results - last 24 hr 09/19/24 09/19/24 09/19/24 11:48 15:42 19:58 MCV MCH MCHC RDW Plt Count MPV Absolute Nucleated RBC Nucleated RBC % (auto) Anion Gap Estim Creat Clear Calc Estimated GFR POC Glucose 156 H 166 H 133 H Random Glucose Calcium 09/20/24 09/20/24 08:02 08:36 MCV 72.5 L MCH 22.6 L MCHC 31.2 RDW 17.7 H Plt Count 258 MPV 10.2 Absolute Nucleated RBC 0.000 Nucleated RBC % (auto) 0.0 Anion Gap 21 H Estim Creat Clear Calc 9.2 Estimated GFR 8 POC Glucose 84 Random Glucose 89 Calcium 8.6 Microbiology Microbiology Results: Microbiology 09/16/24 14:26 Gram Stain - Final Hand Right Routine Culture - Final Citrobacter freundii 09/12/24 15:30 Gram Stain - Final Hand Right Routine Culture - Final Proteus mirabilis Citrobacter freundii Klebsiella oxytoca Assessment and Plan (1) ESRD needing dialysis: Status: Acute (2) PVD (peripheral vascular disease): Status: Acute Plan d30 for 69yo M with DM2, ESRD on HD MWF, PVD, hx R BKA for limb ischemia 04/11/24, seizure disorder, HFrEF, HTN, HLD, chronic hypoxia on 2L O2, GERD, and ROBERT on CPAP presenting with pain/dry gangrene of R 2nd and 3rd fingers dry gangrene/ischemia of R 2nd + 3rd fingers - s/p R middle finger amputation at MCP and R index finger amputation at PIP 08/27/24 - s/p additional debridement and ray resection of R 3rd metacarpal head on 08/30/24 - s/p additional debridement 09/01 - s/p I+D and revision of amputation 09/09 - s/p transmetacarpal amputation of R 2nd, 4th, and 5th fingers 09/12 - s/p I+D and shortening of the 3rd and 4th metacarpal shafts to facilitate closure 09/14 - s/p I+D and revision amputation of the right 2nd and 3rd metacarpal legs to facilitate closure 09/16 - daily evaluation by Orthopedics; dressing changes per nursing with Xeroform, fluffs, Kerlix, Javy bandage; no further operative intervention planned at this time - wound cultures grew Citrobacter freundii, Klebsiella oxytoca, and Proteus mirabilis - per ID will change to PO levofloxacin x 6 wk and metronidazole x 2 wk, change made 09/18, end date for levofloxacin 10/30 and end date for metronidazole 10/02 LLE dry gangrene - per Vascular Surgery; LLE with stable dry gangrene; no intervention at this time - per Wound Care: Left Posterior Calf - Cleanse with normal saline, pat dry. ?Apply barrier to the immediate erin wound, apply thick layer of Santyl to entire wound bed, cover with saline moist gauze, cover with dry gauze, ABD pad and gauze wrap, change Daily. Right AKA site - Cleanse with NS pat dry. Apply skin prep cover wound bed with dry gauze dressing. change every 3 days. Left Great Toe - Kamiah with Betadine allow to dry. May leave [employer]- if drainage occurs cover with dry gauze. Kamiah Daily. Right Fingers Defer to Surgery team for topical orders. ESRD on HD with hyperkalemia - HD MWF, sevelamer, furosemide; daily Lokelma Resolved issues acute encephalopathy due to infection vs hypoglycemia- resolved, hypoglycemia resolved, CT head negative Chronic issues HTN- losartan, amlodipine, doxazosin, carvedilol chronic hypoxic resp failure/ROBERT - 2L home O2, CPAP at night DM2 with hypoglycemia- basal-bolus insulin; hypoglycemia resolved seizure disorder- levetiracetam PVD- aspirin, atorvastatin neuropathy- pregabalin gout- allopurinol VTE ppx- heparin dispo- PT/OT for dispo planning In my clinical judgment, the patient requires continued inpatient hospitalization for the following reasons: postoperative care Total time managing care of this patient today: 35 minutes. Quality Stroke Does the patient have a stroke diagnosis?: No VTE Prior VTE?: No VTE Risk Level:: Medical - moderate - high VTE Device Contraindication: Treatment Not Indicated VTE Drug Contraindication: N/A - Med Ordered
[2024-09-20 11:46] LABS: Glucose, Whole Blood 92 mg/dL (60-115)
[2024-09-20] MEDS: Sevelamer Carbonate Tablet 800 MG TABLET PO ×2 (12:22→15:37)
--- NOTE | 2024-09-20 12:51 | MHC.CM.PN ---
DP: EMR REVIEWED AND PER MD ROUNDS, PT IS NOT YET MEDICALLY CLEARED FOR DC. PT/SON ARE DECLINING STR AND SON WILL BE CARING FOR HIM AT HOME. [facility] WILL RESUME SERVICES ON DC, UPDATED VIA [facility]. CM WILL CONTINUE TO FOLLOW FOR ANY CHANGE TO DC PLAN/NEEDS.
[2024-09-20] MEDS: Aspirin Enteric Coated 81 MG TABLET.DR PO (15:37)
[2024-09-20] MEDS: 0.9 % Sodium Chloride Flush 3 ML SYRINGE IVFLUSH (15:40)
[2024-09-20 15:50] LABS: Glucose, Whole Blood 182 mg/dL (60-115)
[2024-09-20 20:13] LABS: Glucose, Whole Blood 136 mg/dL (60-115)
[2024-09-20] MEDS: Insulin Glargine,Hum.rec.anlog 100 UNIT/ML 10 ML VIAL 10 UNIT SUBCUT (22:11)
[2024-09-21] VITALS: BP 148/67; PULSE 99; RESP 17; TEMP 36.4; O2SAT 94
[2024-09-21 03:38] VITALS: BP 136/55; PULSE 56; RESP 16; TEMP 36.2; O2SAT 93
[2024-09-21 07:42] VITALS: PULSE 56; RESP 16; O2SAT 96
[2024-09-21] MEDS: Fluticasone/Umeclidinium/Vilanterol 100/62.5/25 BLST.W.DEV 1 PUFF INHALE (07:42)
[2024-09-21 07:46] LABS: Glucose, Whole Blood 93 mg/dL (60-115)
[2024-09-21 07:52] VITALS: BP 180/81; PULSE 58; RESP 12; TEMP 36.7; O2SAT 98
[2024-09-21] MEDS: Sevelamer Carbonate Tablet 800 MG TABLET PO ×2 (08:38→12:30)
[2024-09-21] MEDS: Aspirin Enteric Coated 81 MG TABLET.DR PO (08:39)
[2024-09-21] MEDS: 0.9 % Sodium Chloride Flush 3 ML SYRINGE IVFLUSH (08:42)
[2024-09-21] MEDS: oxyCODONE HCl Immed Release 5 MG TABLET 10 MG PO (10:21)
--- NOTE | 2024-09-21 11:34 | P.DS_ITS ---
DS: Providers Provider Date of Service: 09/21/24 Date of admission: 08/22/24 15:37 Date of discharge: 09/21/24 Primary care physician: Nonstaff Physician Consults: 08/22/24 15:58 Consult to Nephrology Routine Consulting Provider: [facility] Reason for consultation: Need of dialysis 08/23/24 03:35 Consult to Wound Care Routine Reason for consultation: Gangrene fingers and toe, posterior calf unstageable 08/23/24 07:30 Consult to Orthopedics Routine Consulting Provider: [facility] Reason for consultation: necrotic fingers 09/04/24 14:27 Consult to Infectious Diseases Routine Consulting Provider: ELVIS ABARCA Reason for consultation: Gale Has provider been notified: Yes 09/11/24 09:28 Consult to Wound Care Routine Reason for consultation: Leg wound 09/11/24 14:02 Consult to Vascular Surgery Routine Consulting Provider: [facility] Reason for consultation: Necrosis of left great toe 09/12/24 09:04 Consult to Psychiatry Routine Consulting Provider: [facility] Psych Covering Reason for consultation: Depressed / SI Has provider been notified: No 09/12/24 09:09 Consult for Sitter Routine Reason for consultation: Si 09/15/24 07:38 Consult to Infectious Diseases Routine Consulting Provider: [facility] Reason for consultation: hand infection/pvd/diabetic Has provider been notified: No 09/17/24 08:18 Consult to Neurology Routine Consulting Provider: [facility] Reason for consultation: significant twitchin /left upper ext weakness - unclear etiology Has provider been notified: No DS: Diagnosis Discharge Diagnosis (1) ESRD needing dialysis: Status: Acute (2) PVD (peripheral vascular disease): Status: Acute (3) Necrotic wound of right hand: Status: Acute (4) Osteomyelitis of right hand: Status: Acute (5) Hyperkalemia: Status: Acute (6) Dry gangrene: Status: Acute (7) Necrosis of finger: Status: Acute (8) Encephalopathy: Status: Acute DS: Summary Hospital Course Hospital Course: From the history and physical by the admitting hospitalist, Edgardo Winkler MD, 08/22/24: 69M PMH significant for?ESRD on HD M/W/F, insulin-dependent type 2 diabetes, peripheral vascular disease, s/p right BKA [address] Cannon, seizure disorder, HFrEF, HTN, HLD, chronically on 2L home O2, GERD, and ROBERT on CPAP who presented to the ED with?worsening pain in his left hand with 3rd and index fingers dry gangrene. patient reporting worsening pain and extending gangrene in both of the fingers. he was supposed to get amputation 2 weeks ago but could not get it done. No chest pain, palpitations, SOB, nausea, vomiting, diarrhea or urinary symptoms. Admitted for IV antibiotics per Hand surgeon and close monitoring 69yo M with DM2, ESRD on HD MWF, PVD, hx R BKA for limb ischemia 04/11/24, seizure disorder, HFrEF, HTN, HLD, chronic hypoxia on 2L O2, GERD, and ROBERT on CPAP; presenting with pain/dry gangrene of R 2nd and 3rd fingers; admitted to the hospitalist service with consultations from Orthopedics, Infectious Disease, and Vascular Surgery. Hospital course by problem: dry gangrene/ischemia of R 2nd + 3rd fingers - s/p R middle finger amputation at MCP and R index finger amputation at PIP 08/27/24 - s/p additional debridement and ray resection of R 3rd metacarpal head on 08/30/24 - s/p additional debridement 09/01 - s/p I+D and revision of amputation 09/09 - s/p transmetacarpal amputation of R 2nd, 4th, and 5th fingers 09/12 - s/p I+D and shortening of the 3rd and 4th metacarpal shafts to facilitate closure 09/14 - s/p I+D and revision amputation of the right 2nd and 3rd metacarpal legs to facilitate closure 09/16 - dressing changes per nursing with Xeroform, fluffs, Kerlix, Javy bandage; keep dressings loose to avoid further necrosis - initially treated with vancomycin and cefepime; wound cultures grew Citrobacter freundii, Klebsiella oxytoca, and Proteus mirabilis; per ID changed to PO levofloxacin x 6 wk and metronidazole x 2 wk, change made 09/18, end date for levofloxacin 10/30 and end date for metronidazole 10/02 LLE dry gangrene - per Vascular Surgery; LLE with stable dry gangrene; no intervention at this time - per Wound Care: Left Posterior Calf - Cleanse with normal saline, pat dry. ?Apply barrier to the immediate erin wound, apply thick layer of Santyl to entire wound bed, cover with saline moist gauze, cover with dry gauze, ABD pad and gauze wrap, change Daily. Right AKA site - Cleanse with NS pat dry. Apply skin prep cover wound bed with dry gauze dressing. change every 3 days. Left Great Toe - [place] with Betadine allow to dry. May leave JARROD- if drainage occurs cover with dry gauze. [place] Daily. Right Fingers Defer to Surgery team for topical orders. ESRD on HD with hyperkalemia - Nephrology consulted and pt underwent HD MWF. Started Lokelma. To continue HD MWF. acute encephalopathy due to infection vs hypoglycemia- Resolved, hypoglycemia resolved; Lantus dose decreased from 22 to 10 units daily He was seen by PT/OT. Discharge to SNF for STR for wound care/PT/OT recommended but the patient and his family declined. He was discharged home with VNA services/home PT and OT. He will be followed closely by [facility] Orthoped[facility] [next appointment 09/24/24] and should also see [facility] Wound Care in 1 week and [facility] Vascular Surgery in 2 weeks for the left leg. Time Attestation Discharge Coordination Time (in mins): 55 Quality: Safe Use of Opioids Does Pt have an Active Cancer Diagnosis on the Problem List?: No Quality: Stroke Does the patient have a stroke diagnosis?: No Physical Exam Vital Signs: Vital Signs: Last Vital Signs Temp 98.0 F 09/21/24 07:52 Pulse 58 09/21/24 07:52 Resp 12 09/21/24 07:52 BP 180/81 H 09/21/24 07:52 Pulse Ox 98 09/21/24 07:52 O2 Del Method Room Air 09/21/24 07:52 O2 Flow Rate 2 09/20/24 21:35 BMI result Body Mass Index 27.3 Gen: in no acute distress HEENT: sclera anicteric, moist mucus membranes Neck: supple Lungs: clear to auscultation bilaterally Heart: regular rate and rhythm, no murmurs Abd: soft, non-tender, non-distended Ext: no edema, R hand transmetacarpal amputations of 2nd-5th fingers; wound without any necrosis or purulence; s/p old R BKA Skin: warm/well-perfused Neuro: alert and oriented x3, no focal findings Psych: appropriate affect DS: Data Data Completed and Pending Completed studies during hospitalization [Text1]: Laboratory Results WBC 11.2 X10*3/uL (4.8-10.8) H 09/20/24 08:36 RBC 3.93 X10*6/uL (4.60-5.80) L 09/20/24 08:36 Hgb 8.9 g/dl (14.0-18.0) L 09/20/24 08:36 Hct 28.5 % (42.0-52.0) L 09/20/24 08:36 MCV 72.5 fL (80.0-98.0) L 09/20/24 08:36 MCH 22.6 pg (27.0-33.0) L 09/20/24 08:36 MCHC 31.2 g/dl (31.0-36.0) 09/20/24 08:36 RDW 17.7 % (11.0-16.0) H 09/20/24 08:36 Plt Count 258 X10*3/uL (160-400) 09/20/24 08:36 MPV 10.2 fL (9.4-12.4) 09/20/24 08:36 Immature Gran % (Auto) 0.6 % (0.0-0.4) H 09/10/24 05:16 Neut % (Auto) 83.5 % (45-73) H 09/10/24 05:16 Lymph % (Auto) 10.0 % (20-40) L 09/10/24 05:16 [place] % (Auto) 5.8 % (2-11) 09/10/24 05:16 Eos % (Auto) 0.0 % (0-4) 09/10/24 05:16 Baso % (Auto) 0.1 % (0-2) 09/10/24 05:16 Lymph # (Auto) 1.4 X10*3/uL (1.2-4.9) 09/10/24 05:16 [place] # (Auto) 0.8 X10*3/uL (0.1-1.2) 09/10/24 05:16 Eos # (Auto) 0.0 X10*3/uL (0.0-0.4) 09/10/24 05:16 Baso # (Auto) 0.0 X10*3/uL (0.0-0.2) 09/10/24 05:16 Abs Immat Gran (auto) 0.08 X10*3/uL (0.00-0.03) H 09/10/24 05:16 Absolute Neuts (auto) 11.8 x10*3/uL (2.0-8.3) H 09/10/24 05:16 Absolute Nucleated RBC 0.000 X10*3/uL (0.0-0.012) 09/20/24 08:36 Nucleated RBC % (auto) 0.0 /100WBC (0.0-0.2) 09/20/24 08:36 ESR 36 MM/HR (0-15) H 09/02/24 05:46 Hold Purple Top SEE NOTE 09/17/24 11:13 VBG pH 7.41 (7.32-7.43) 08/26/24 20:07 VBG pCO2 51 mmHg 08/26/24 20:07 VBG pO2 73 mmHg 08/26/24 20:07 VBG HCO3 33 mmol/L (22-26) H 08/26/24 20:07 VBG O2 Saturation 92.0 % 08/26/24 20:07 VBG Base Excess 7.1 mmol/L 08/26/24 20:07 Sodium 134 mmol/L (135-145) L 09/20/24 08:36 Potassium 4.8 mmol/L (3.3-5.1) 09/20/24 08:36 Chloride 95 mmol/L (96-108) L 09/20/24 08:36 Carbon Dioxide 23 mmol/L (22-29) 09/20/24 08:36 Anion Gap 21 (12-20) H 09/20/24 08:36 BUN 60 mg/dL (9-16) H 09/20/24 08:36 Creatinine 6.95 mg/dL (0.5-1.4) H* 09/20/24 08:36 Estim Creat Clear Calc 9.2 09/20/24 08:36 Estimated GFR 8 09/20/24 08:36 POC Glucose 93 mg/dL (60-115) 09/21/24 07:39 Random Glucose 89 mg/dL (60-115) 09/20/24 08:36 Lactic Acid 1.6 mmol/L (0.5-2.0) 08/22/24 14:20 Calcium 8.6 mg/dL (8.4-10.2) 09/20/24 08:36 Phosphorus 4.4 mg/dL (2.7-4.5) 09/19/24 05:59 Magnesium 1.6 mg/dL (1.6-2.6) 08/22/24 11:41 Total Bilirubin 0.5 mg/dL (0.0-1.0) 08/24/24 11:38 Direct Bilirubin 0.3 mg/dL (0.0-0.5) 08/24/24 11:38 AST 18 U/L (5-37) 08/24/24 11:38 ALT 19 U/L (0-40) 08/24/24 11:38 Alkaline Phosphatase 143 U/L (39-117) H 08/24/24 11:38 Ammonia 32 umol/L (13-55) 08/24/24 11:38 C-Reactive Protein 8.23 mg/dL (< or = 0.50) H 09/02/24 05:46 Total Protein 7.0 g/dL (6.5-8.0) 08/24/24 11:38 Albumin 3.4 g/dL (3.5-5.0) L 08/24/24 11:38 PTH Intact 205.0 pg/mL (8.7-77.1) H 09/19/24 05:59 Random Vancomycin 16.4 mcg/mL (15-20) 09/16/24 18:21 Impressions Hand X-Ray 09/09/24 11:19 IMPRESSION: Soft tissue swelling and interval amputation at the neck of the second proximal phalanx and neck of third metacarpal. Electronically signed by: Braulio Ordoñez MD 09/09/2024 12:30 PM EDT RP Head CT 09/17/24 08:50 IMPRESSION: Small vessel occlusive disease. Extensive atherosclerosis disease, consider medical renal disease and more diabetes. No acute intracranial hemorrhage Electronically signed by: Douglas Lundberg MD 09/17/2024 09:33 AM EDT RP Discharge Plan Discharge Anticipated Discharge Date/Time: 09/21/24 11:23 Patient Disposition: Home Health Service Discharge Diagnosis: gangrene/necrosis/osteomyelitis of R 2nd-5th fingers dry gangrene of LLE ESRD on HD with hyperkalemia Referrals: [facility] [Provider Group] - 09/24/24 [facility] Wound Care Management [Provider Group] - 1 Week Physician,Nonstaff [Primary Care Provider, Medical] - 1 Week Shayla Augustine NP [Nurse Practitioner, Internal Medicine] - 1 Week Baltazar Cannon MD [Physician, Vascular Surgery] - 2 Weeks Discharge Medications: New insulin glargine [Lantus U-100 Insulin] 100 unit/mL Solution 10 unit subcut BEDTIME Qty: 10 0RF metronidazole 500 mg Tablet 500 mg PO Q12H Qty: 22 0RF levofloxacin 500 mg Tablet 500 mg PO Q48H Qty: 19 0RF Santyl 250 unit/gram Ointment 1 appl topical DAILY Qty: 90 0RF oxycodone 5 mg Tablet 5 mg PO Q4H PRN (Reason: Pain, Severe (Pain Scale 7-10)) Qty: 18 0RF Rx Instructions: Partial Fill upon patient request. levetiracetam 1,000 mg Tablet 1,000 mg PO BID Qty: 60 0RF Lokelma 5 gram powder in packet 5 g PO DAILY Qty: 30 0RF Continued atorvastatin 40 mg tablet 40 mg PO SUTUTHSA@0900 allopurinol 100 mg tablet 100 mg PO MOWEFR@1600 Rx Instructions: GIVE AFTER DIALYSIS furosemide 80 mg tablet 80 mg PO SUTUTHSA@0900 omeprazole 20 mg capsule,delayed release(DR/EC) 20 mg PO DAILY@0630 ipratropium-albuterol 0.5 mg-3 mg(2.5 mg base)/3 mL solution for nebulization 3 ml inhalation QID PRN (Reason: Shortness Of Breath) albuterol sulfate [Ventolin HFA] 90 mcg/actuation HFA aerosol inhaler 2 puff INHALATION Q4H PRN (Reason: wheezing) carvedilol 6.25 mg Tablet 6.25 mg PO BID Rx Instructions: must administer with a meal/food aspirin 81 mg tablet,delayed release (DR/EC) 81 mg PO SUTUTHSA@0900 pregabalin 75 mg capsule 75 mg PO DAILY atorvastatin 40 mg tablet 40 mg PO MOWEFR@1600 aspirin 81 mg Tablet,Delayed Release (Dr/Ec) 81 mg PO MOWEFR@1600 furosemide 80 mg tablet 80 mg PO MOWEFR@1600 losartan 25 mg tablet 25 mg PO MOWEFR@1600 Melissa Ellipta 100-62.5-25 mcg Blister With Device 1 inh INHALATION DAILY losartan 25 mg tablet 25 mg PO SUTUTHSA@0900 Protocol: Hold for SBP< HOLD for SBP < : 90 docusate sodium 100 mg Capsule 100 mg PO DAILY No Action (DME) PleurX catheter drainage kits 1000cc kits See Rx Instructions .Route .MEDSUPPLY Qty: 10 6RF Rx Instructions: As directed doxazosin 4 mg tablet 4 mg PO BEDTIME Velphoro 500 mg tablet,chewable 500 mg PO TID insulin glargine [Lantus Solostar U-100 Insulin] 100 unit/mL (3 mL) insulin pen 22 unit subcut BEDTIME acetaminophen 500 mg Tablet 1,000 mg PO Q8H PRN (Reason: Pain) amlodipine 10 mg Tablet 10 mg PO DAILY calcium carbonate [Calcium 500] 500 mg calcium (1,250 mg) Tablet,Chewable 500 mg PO TID insulin lispro [Humalog U-100 Insulin] 100 unit/mL Solution See Rx Instructions .ROUTE .COMPLEX Rx Instructions: 1 sliding scale dose subcutaneously twice daily with meals on MOWEFR; 200-249 - 2 UNITS 250-299 4 UNITS, 300-349 6 UNITS 350-439 8 UNITS 400+ CALL DR Discharge Orders: Discharge Order (Routine); Ordered 09/21/24 Ordered By: Bennett Hu Diet: Diabetic diet Activity on Discharge: As tolerated Stand Alone Forms: Patient Portal Discharge page Print Language: Beninese Activity Restrictions/Additional Instructions: Topical Wound Care Recommendations: Left Posterior Calf - Cleanse with normal saline, pat dry. ?Apply barrier to the immediate erin wound, apply thick layer of Santyl to entire wound bed, cover with saline moist gauze, cover with dry gauze, ABD pad and gauze wrap, change Daily. Right AKA site - Cleanse with NS pat dry. Apply skin prep cover wound bed with dry gauze dressing. change every 3 days. Left Great Toe - [place] with Betadine allow to dry. May leave JARROD- if drainage occurs cover with dry gauze. [place] Daily. Right Hand - Daily dressing changes per nursing with Xeroform, fluffs, Kerlix, Javy bandage; Dressings should always be loose, applying as little pressure as possible to the wound, to prevent blood flow restriction and to try to mitigate risk of any further necrosis Care Plan Goals: cure of R hand necrosis/infection Health Concerns: gangrene/necrosis/osteomyelitis of R 2nd-5th fingers dry gangrene of LLE ESRD on HD with hyperkalemia Plan of Treatment: levofloxacin 500 mg EVERY OTHER DAY, end date 10/30/24 metronidazole 500 mg twice daily, end date 10/02/24 FOLLOW UP WITH [facility] ON Monday09/24/24 follow up with [facility] Wound Care in 1 week follow up with [facility] Vascular Surgery in 2 weeks continue dialysis MWF and take Lokelma 5 grams daily Please follow up with your primary care doctor within 1 week. Return to the hospital if you experience recurrent or worsening symptoms. Assessment: See Discharge Summary.
--- NOTE | 2024-09-21 11:34 | W.MHC.F2F ---
Service Date Service Date: 09/21/24 Encounter Date of encounter: 09/21/24 Reasons for Services Signs and symptoms assessed: wound care, medication management attach PT/OT evaluations from 09/19-09/20/24 Reason for [facility]: wound care, diabetic teaching, monitoring of unstable blood sugar, medication management, medication treatment and teach disease management Reason for physical therapy: home safety and mobility, therapeutic exercises, restore joint function, gait/transfer training, assess need for DME, ADL training and energy conservation Reason for occupational therapy: home safety and mobility, therapeutic exercises, restore joint function, gait/transfer training, assess need for DME, ADL training and energy conservation MD Overseeing Care: Shayla Augustine Homebound: Leaving the home is medically contraindicated at this time without the asist of a device and/or another person due th the listed conditions above and below. Reason homebound: unsteady gait / fall risk and immunosuppression / infection risk Certification: Based on the above findings, I certify that this patient is confined to the home and needs intermittent [facility] care, physical therapy and/or speech therapy, or continues to need occupational therapy. The patient is under my care, and I have initiated the establishment of the plan of care. The patient will be followed by a physician who will periodically review the plan of care. Time Spent With Patient Time: Total time managing care of this patient today ____ minutes.
[2024-09-21 11:44] LABS: Glucose, Whole Blood 249 mg/dL (60-115)
[2024-09-21 12:29] VITALS: BP 150/73; PULSE 54; RESP 20; TEMP 36.4; O2SAT 93
--- NOTE | 2024-09-21 12:35 | MHC.CM.PN ---
PT CLEARED TO DC TODAY, CM SPOKE TO SON, ALYSSA [phone] ALYSSA REPORTS HE CAN BRING THE PT TO ORTHO FOR F/U BETWEEN 0800 AND 0830 [facility] PA AWARE [facility] NOTIFIED OF DC VIA [facility] SON WILL TRANSPORT
--- NOTE | 2024-10-04 12:20 | P.CDIM_ITS ---
PROVIDER RESPONSE TEXT: To clarify, the appropriate diagnosis supported by the clinical indicators: Excisional debridement: Full-thickness skin wound and I excised the necrotic tissue at the wound edges. This was mostly in the volar tissue and overall minimal. A tenotomy scissor and a sharp blade were used to perform the excisional debridement QUERY TEXT: PHYSICIAN'S DOCUMENTATION REQUEST Date of Query: 09/02/2024 10:07 AM EDT Patient Name: Beau Marie Admit Date: 08/22/2024 Dear Baldemar Witt MD, A review of the medical record indicates additional documentation may be needed. Please review below and update the documentation accordingly. Clinical Indicators: per Operative Note 09/01/24: debridement right hand debrided some of the nonviable volar tissue but minimally and irrigated copiously Could you provide, in the Progress Notes, further clarification regarding the type and depth of the debridement? Excisional debridement Please also address the Type of instrument used, What was excised, Depth of debridement, and Size and appearance of the wound as able Non-excisional debridement Please also address the Depth of debridement, and Size and appearance of the wound as able Other (explain) Clinically unable to determine (explain) Thank you, Carmen Carvajal RN Use of terms such as suspected, likely, concern for, or probable (associated with a specific diagnosis that is being evaluated, monitored, or treated as if it exists) are acceptable and can be coded in the inpatient setting, when documented at the time of discharge. Please use your independent medical judgment in providing your response. THIS QUERY IS PART OF THE PERMANENT MEDICAL RECORD
== END 2024-09-21 14:20 | disposition home health service (06) | DRG 255 ==
LOC: HO.ED 13:03 → HO.EDOVER 15:52 → HO.S3 19:40 → HO.EDOVER 19:47 → HO.IMC 08-23 01:22 → HO.S3 09-01 15:47
PROVIDERS: Hospitalist; Internal Medicine; Nurse Practitioner Family; Orthopaedic Surgery; Physician Assistant; Physician Assistant Medical; Student in an Organized Health Care Education/Training Program; Emergency Provider Emergency Medicine; Visit Provider Family Medicine
PROC: 0X6N0Z1 Detachment at Right Index Finger, High, Open Approach (ICD-10-PCS; CPT 26951; principal; 2024-08-27 15:20)
PROC: 0PBT0ZZ Excision of Right Finger Phalanx, Open Approach (ICD-10-PCS; principal; 2024-09-09 13:50)
PROC: 0X6N0Z0 Detachment at Right Index Finger, Complete, Open Approach (ICD-10-PCS; principal; 2024-09-12 13:00)
PROC: 0PBP0ZZ Excision of Right Metacarpal, Open Approach (ICD-10-PCS; principal; 2024-09-14 09:00)
DX: E11.52 Type 2 diabetes mellitus with diabetic peripheral angiopathy with gangrene (principal); G92.8 Other toxic encephalopathy; N18.6 End stage renal disease; I13.2 Hypertensive heart and chronic kidney disease with heart failure and with stage 5 chronic kidney disease, or end stage renal disease; J96.11 Chronic respiratory failure with hypoxia; I50.22 Chronic systolic (congestive) heart failure; E78.5 Hyperlipidemia, unspecified; G40.909 Epilepsy, unspecified, not intractable, without status epilepticus; G47.33 Obstructive sleep apnea (adult) (pediatric); E11.22 Type 2 diabetes mellitus with diabetic chronic kidney disease; G89.18 Other acute postprocedural pain; E11.649 Type 2 diabetes mellitus with hypoglycemia without coma; E11.42 Type 2 diabetes mellitus with diabetic polyneuropathy; B96.4 Proteus (mirabilis) (morganii) as the cause of diseases classified elsewhere; Z89.611 Acquired absence of right leg above knee; M10.9 Gout, unspecified; E87.5 Hyperkalemia; Z99.2 Dependence on renal dialysis; Z87.891 Personal history of nicotine dependence; Z99.81 Dependence on supplemental oxygen; Z79.4 Long term (current) use of insulin; Z79.82 Long term (current) use of aspirin; Z79.899 Other long term (current) drug therapy
CPT/HCPCS: 36415; 70450; 73130; 80048; 80053; 80076; 80202; 82140; 82803; 82947; 83605; 83735; 83970; 84100; 84132; 85025; 85027; 85652; 86140; 87040; 87070; 87077; 87186; 87205; 88305; 88311; 90999; 92526; 92610; 93005; 94640; 94660; 97162; 97167; 97530; 99285; J0131; J0613; J0665; J0690; J0692; J0696; J1100; J1171; J1644; J1953; J2003; J2004; J2250; J2270; J2371; J2405; J2543; J2704; J2795; J2997; J3010; J3370; J3374; Q5106

== ENCOUNTER → 2024-08-22 11:19 | Outpatient (BNV) | payer MEDICARE, MEDICAID, SELFPAY | PROVIDERS: Visit Provider Radiology Diagnostic Radiology | DX: M85.841 Other specified disorders of bone density and structure, right hand (principal); R22.31 Localized swelling, mass and lump, right upper limb; I70.201 Unspecified atherosclerosis of native arteries of extremities, right leg | CPT/HCPCS: 73130 ==

== ENCOUNTER 2024-08-22 15:37 | Outpatient (BNV) | payer MEDICARE, MEDICAID, SELFPAY | END 2024-09-09 11:42 | PROVIDERS: Admitting Provider Physician Assistant Medical; Emergency Provider Emergency Medicine; Visit Provider Radiology Diagnostic Radiology | DX: M79.641 Pain in right hand (principal) | CPT/HCPCS: 73130 ==

== ENCOUNTER 2024-08-22 15:37 | Outpatient (BNV) | payer MEDICARE, MEDICAID, SELFPAY | END 2024-08-24 11:41 | PROVIDERS: Admitting Provider Physician Assistant Medical; Emergency Provider Emergency Medicine; Visit Provider Radiology Diagnostic Radiology | DX: G93.40 Encephalopathy, unspecified (principal) | CPT/HCPCS: 70450 ==

== ENCOUNTER 2024-08-22 15:37 | Outpatient (BNV) | payer MEDICARE, MEDICAID, SELFPAY | END 2024-09-17 08:50 | PROVIDERS: Emergency Provider Emergency Medicine; Visit Provider Radiology Diagnostic Radiology | DX: R90.82 White matter disease, unspecified (principal) | CPT/HCPCS: 70450 ==

== ENCOUNTER 2024-08-22 15:37 | Outpatient (BNV) | payer MEDICARE, MEDICAID, SELFPAY | END 2024-09-18 07:42 | PROVIDERS: Emergency Provider Emergency Medicine; Visit Provider Internal Medicine | DX: I44.7 Left bundle-branch block, unspecified (principal); R00.1 Bradycardia, unspecified | CPT/HCPCS: 93010 ==

== ENCOUNTER → 2024-08-22 15:37 | Outpatient (BNV) | payer MEDICARE, MEDICAID, SELFPAY | PROVIDERS: Emergency Provider Emergency Medicine; Visit Provider Registered Nurse | DX: F32.1 Major depressive disorder, single episode, moderate (principal); Z71.9 Counseling, unspecified | CPT/HCPCS: 99232 ==

== ENCOUNTER → 2024-08-22 15:37 | Outpatient (BNV) | payer MEDICARE, MEDICAID, SELFPAY | PROVIDERS: Emergency Provider Emergency Medicine; Visit Provider Psychiatry & Neurology Neurology | DX: G93.40 Encephalopathy, unspecified (principal); R27.8 Other lack of coordination | CPT/HCPCS: 99222 ==

== ENCOUNTER → 2024-08-22 15:37 | Outpatient (BNV) | payer MEDICARE, MEDICAID, SELFPAY | PROVIDERS: Emergency Provider Emergency Medicine; Visit Provider Internal Medicine | DX: I96 Gangrene, not elsewhere classified (principal); L03.90 Cellulitis, unspecified; Z89.021 Acquired absence of right finger(s) | CPT/HCPCS: 99232 ==

== ENCOUNTER → 2024-08-22 15:37 | Outpatient (BNV) | payer MEDICARE, MEDICAID, SELFPAY | PROVIDERS: Admitting Provider Physician Assistant Medical; Emergency Provider Emergency Medicine | DX: I96 Gangrene, not elsewhere classified (principal) | CPT/HCPCS: 99222 ==

== ENCOUNTER → 2024-08-22 15:37 | Outpatient (BNV) | payer MEDICARE, MEDICAID, SELFPAY | PROVIDERS: Admitting Provider Physician Assistant Medical; Emergency Provider Emergency Medicine; Visit Provider Student in an Organized Health Care Education/Training Program | DX: I96 Gangrene, not elsewhere classified (principal) | CPT/HCPCS: 99223; 99232; 99233; 99499 ==

== ENCOUNTER → 2024-08-22 15:37 | Outpatient (BNV) | payer MEDICARE, MEDICAID, SELFPAY | PROVIDERS: Admitting Provider Physician Assistant Medical; Emergency Provider Emergency Medicine; Visit Provider Internal Medicine Critical Care Medicine | DX: N18.6 End stage renal disease (principal); Z99.2 Dependence on renal dialysis; E87.5 Hyperkalemia | CPT/HCPCS: 99232 ==

== ENCOUNTER → 2024-08-22 15:37 | Outpatient (BNV) | payer MEDICARE, MEDICAID, SELFPAY | PROVIDERS: Admitting Provider Physician Assistant Medical; Emergency Provider Emergency Medicine; Visit Provider Surgery Vascular Surgery | DX: I73.9 Peripheral vascular disease, unspecified (principal) | CPT/HCPCS: 99222 ==

== ENCOUNTER → 2024-08-22 15:37 | Outpatient (BNV) | payer MEDICARE, MEDICAID, SELFPAY | PROVIDERS: Admitting Provider Physician Assistant Medical; Emergency Provider Emergency Medicine; Visit Provider Nurse Practitioner Family | DX: N18.6 End stage renal disease (principal); Z99.2 Dependence on renal dialysis | CPT/HCPCS: 90935; 99221; 99231 ==

== ENCOUNTER 2024-09-24 09:57 | Outpatient (AMB) | payer MEDICARE, MEDICAID, SELFPAY ==
--- NOTE | 2024-09-24 10:23 | A.OFFVIS_ITS ---
Intake Visit Reasons: PO 3 wk RT MF/IF amp 09/12/24 AR-wound check Intake Note: Beau 69 yr old male presents today for his P/O visit forhis most recent revision I and D and revision amputation for his right middle and index finger done on 09/16/[address] Rosales. He is here for a wound check. He presents today with his son. 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 He complains of some pain, but says this is improved from prior to his surgery. He is residing with his son, who says that his family is not providing the patient any sweets while he is healing. 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 Cannon. He continues to follow with vascular for wound care of his AKA. He was most recently referred back to Dr. Cannon for necrosis of his left great toe. He has ESRD, CHF, PVD, and Diabetes. He is on Dialysis 3x weekly. He is a Diabetic, which is poorly controlled. He has not had a recent HgA1c checked but his daily sugars range from ~90's-150's on average, according to his son. During his several week stay in the hospital we noticed that some days his blood sugars were as noted above, and other days they were over 300. We also found fruit pie and other junk food wrappers, and talked to the family about the importance of not bringing him these foods so that he can control his diabetes while his bodies healing the infections and wounds. [facility] Medical History (Updated 09/21/24 @ 11:36 by Bennett Hu MD) Gangrene of hand Above knee amputation of right lower extremity Left ventricular systolic dysfunction (LVSD) PVD (peripheral vascular disease) Postop check Acute pericardial effusion Right sided weakness Dehiscence of wound Peripheral arterial disease Dry gangrene Cellulitis of right foot HFrEF (heart failure with reduced ejection fraction) Chronic combined systolic and diastolic CHF (congestive heart failure) Chronic pericardial effusion Arthritis Asthma Restless leg syndrome Acute on chronic systolic and diastolic heart failure, NYHA class 3 Anemia Occlusive thrombus Pulmonary edema ROBERT (obstructive sleep apnea) Type 2 diabetes mellitus Hyperlipidemia Hypertension A-V fistula ESRD on dialysis Falling Surgical History Status post creation of pericardial window 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 Mother No problems noted. 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 We did not suture the skin edges tightly in line with the 3rd metacarpal, as he had had an infection that tracked along the flexor tendons to the middle finger back to the carpal tunnel area. This was washed out a couple of times. This part of the wound was left open to facilitate any drainage that might be necessary. The area appears moist but I do not appreciate any drainage. I palpated along the line of the flexor tendons to the middle finger and he was not particularly tender in that area or elsewhere in the hand. He said that all in all his pain is better. Importantly there is no odor appreciated today in clinic. The rest of his hand wound is sutured closed in appears to be healing well, and with no further necrosis. He has good sensation and good motion of the thumb and of the wrist joint. Sensation is intact Cap refill is brisk Microbiology report: Routine Culture Final 09/19/24 Organism 1 Proteus mirabilis Quantity 2+ Organism 2 Citrobacter freundii Quantity 1+ Organism 3 Klebsiella oxytoca Quantity 2+ Refer to the other culture collected on 09/12/2024 for susceptibility results of Proteus mirabilis and Klebsiella oxytoca. (CULTURE # [id number]) C freundii M.I.C. RX --------- --- Cefazolin >=32 R Cefepime 0.5 S Ceftriaxone >=64 R Ciprofloxacin <=0.06 S Gentamicin <=1 S Trimethoprim/Sulfamethoxazole <=20 S Psych Appearance: grossly normal Affect: normal affect Attitude: cooperative Assessment & Plan Assessment & Plan (1) Status post amputation of finger of right hand: Code(s): Z89.021 - Acquired absence of right finger(s) Category: Surgical (2) 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: Code(s): Z89.021 - Acquired absence of right finger(s) Category: Surgical (3) Osteomyelitis of right hand: Code(s): M86.9 - Osteomyelitis, unspecified Category: Medical (4) Type 2 diabetes mellitus: Comment: taking insulin-no oral Rx Code(s): E11.9 - Type 2 diabetes mellitus without complications Category: Medical (5) Acute on chronic systolic and diastolic heart failure, NYHA class 3: Code(s): I50.43 - Acute on chronic combined systolic (congestive) and diastolic (congestive) heart failure Category: Medical (6) ESRD needing dialysis: Code(s): N18.6 - End stage renal disease; Z99.2 - Dependence on renal dialysis Category: Medical (7) Numbness and tingling in right hand: Code(s): R20.0 - Anesthesia of skin; R20.2 - Paresthesia of skin Category: Medical (8) PVD (peripheral vascular disease): Code(s): I73.9 - Peripheral vascular disease, unspecified Category: Medical (9) Necrotic wound of right hand: Code(s): S61.401A - Unspecified open wound of right hand, initial encounter; I96 - Gangrene, not elsewhere classified Category: Medical Plan Assessment & Plan: 1. Right middle finger necrosis 2. Right Index finger necrosis S/P multiple procedures performed by Dr. Witt: A) Right middle finger MCP joint level amputation Right index finger PIP joint level amputation DOS: 08/27/24 B) Right middle finger I&D with metacarpal head resection DOS: 08/30/24 C) Right middle finger debridement DOS: 09/01/24 3. Worsening necrosis of the right index finger 4. Necrosis of the right ring finger 5. Impending necrosis of the right small finger 6. Deep palmar space hand infection extending from middle finger flexor tendons to deep palmar space Status post multiple procedures performed by Dr. Rosales: D) Right hand I&D including I&D of 3rd metacarpal bone, and index finger proximal phalanx bone Right index finger revision amputation at the proximal phalanx level DOS: 09/09/24 E) Right hand ray amputations of the index finger, ring finger and small finger Right hand I and D of deep mid palmar space infection DOS: 09/12/2024 F) Right hand I&D of necrotic soft tissue and deep palmar space infection Shortening of the 3rd and 4th metacarpal shafts to facilitate closure DOS: 09/14/24 G) Right hand I&D of necrotic soft tissue and bone Revision amputation of the right 2nd and 3rd metacarpals to facilitate closure without tension DOS: 09/16/24 The patient appears to be doing well post-operatively I educated him and his son about the post-operative course I explained the signs and symptoms of infection, if the patient develops any new or worsening erythema, drainage, pain, or warmth they should contact the clinic or attend the ED. It sounds like he is currently receiving outpatient wound care. He will continue to take his PO levofloxacin x 6 wk and metronidazole x 2 wk, which began on 09/18/24 per ID I discussed activity modifications, he is to lift nothing heavier than a cellphone for the next 8 weeks He will follow up weekly for a wound check, anticipate suture removal no sooner than 3 weeks from his final surgery, ~10/07/24 Please note that greater than 50 minutes was spent with this patient going over the history, evaluating the patient and radiographs, formulating possible treatment options, discussing them with the patient, and documenting the visit. Scribed for Beatriz Rosales MD by Rolando Mosqueda medical office manager, on 09/24/24 at 10:50 AM, EST. Scribe Plan - Not visible on output: Scribed for Beatriz Rosales MD by howie Mendosa scribe, on [ ] at [ ], EST. Coding Level of Care Code Global (75360) Diagnoses Status post amputation of finger of right hand Z89.021 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 Z89.021 Osteomyelitis of right hand M86.9 Type 2 diabetes mellitus E11.9 Acute on chronic systolic and diastolic heart failure, NYHA class 3 I50.43 ESRD needing dialysis N18.6; Z99.2 Numbness and tingling in right hand R20.0; R20.2 PVD (peripheral vascular disease) I73.9 Necrotic wound of right hand S61.401A; I96
--- OUTSIDE RECORDS SUMMARY | 2024-09-24 10:48 | XMS_ITS | Clinical Summary ---
Author Organization [facility] Address [address] [place] [address] [address] [place] [address] Care Team Providers Care Revenue Coordinator Name Role Phone Unavailable Primary Care Provider [...] 2023 08/20/2021, 01/08/2021, 07/29/2020, Additional history exists Influenza Vaccine (#1) 2024 , 02/15/2022, 12/21/2020, Additional history exists DTaP/Tdap/Td Vaccines (5 - Td or Tdap) 08/02/2033 08/03/2023, 09/21/2020, 09/21/2020, Additional history exists Hepatitis B Vaccines Completed 04/13/2016, 06/16/2011, 11/01/2010, Additional history exists Zoster Vaccines Completed 01/07/2020, 07/27/2017 Pneumococcal Vaccine: 50+ Years Completed 09/14/2023, 04/13/2016, 11/02/2015, Additional history exists HIB Vaccines Aged Out [...]
--- OUTSIDE RECORDS SUMMARY | 2024-09-24 10:48 | XMS_ITS | Encounter Summary ---
Author Organization [facility] Address [address] [facility] [address] [place] [address] Phone Care Team Providers Care Sanding Machine Operator Name Role Phone Jade Lewis MD Primary Care Provider + [phone] Reason for Visit * Reason Onset Date Comments Med Refill 04/19/2022 Encounter Details Date Type Department Care Team (Late st Contact Info) Description 04/19/2022 Refill [facility] [address] [place] [id number] Loida Madsen Social History Tobacco Use Types [...] on filedocumented in this encounter Care Teams Sanding Machine Operator Relationship Specialty Start Date End Date Jade Lewis MD [address] [place] [id number] PCP - General Internal Medicine 04/25/22 documented as of this encounter
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
--- OUTSIDE RECORDS SUMMARY | 2024-09-24 10:48 | XMS_ITS | Encounter Summary ---
Author Organization [facility] Address [address] [place] [address] Care Team Providers Care Africana Studies Professor Name Role Phone Cass Turcios MD Primary Care Provider [phone] Encounter Details Date Type Department Care Team (Late st Contact Info) Description 06/06/2024 Lab Requisition [facility] - Main Lab [address] [facility] [place] [address] Laurence Florence MD [address] [place] [id number] Cellulitis of right lower limb; End stage [...] mg/dL LAB CHEMISTRY METHOD 06/06/2024 8:59 AM [facility] BUN 28(H) 5 - 25 mg/dL LAB CHEMISTRY METHOD 06/06/2024 8:59 AM [facility] Creatinine 3.78(H) 0.70 - 1.30 mg/dL LAB CHEMISTRY METHOD 06/06/2024 8:59 AM [facility] eGFR 17(L) >=60 mL/min/1. 73m2 LAB CHEMISTRY METHOD 06/06/2024 8:59 AM [facility] Comment:Calculation based on the Chronic Kidney Disease Epidemiology Collaboration (CKD-EPI) equation refit without adjustment for race. BUN/Creatinine Ratio 7.4 LAB CHEMISTRY METHOD 06/06/2024 8:59 AM [facility] Calcium 9.1 8.5 - 10.5 mg/dL LAB CHEMISTRY METHOD 06/06/2024 8:59 AM [facility] Blood Venous blood specimen / Unknown Venipuncture / Unknown 06/06/2024 5:35 AM EDT 06/06/2024 8:10 AM EDT us Laurence Florence MD LAB BLOOD ORDERABLES Final Resu lt [facility] [address] [place] [address], [place] [phone] * (ABNORMAL) Complete blood count (06/06/2024 5:35 AM EDT) WBC 9.3 4.8 - 10.8 K/mcL LAB HEMETOLOGY METHOD 06/06/2024 8:35 AM EDT [facility] RBC 3.20(L) 4.50 - 5.50 M/mcL LAB HEMETOLOGY METHOD 06/06/2024 8:35 AM EDT [facility] Hemoglobin 7.6(L) 13.5 - 17.5 g/dL LAB HEMETOLOGY METHOD 06/06/2024 8:35 AM EDT [facility] Hematocrit 26.2(L) 42.0 - 54.0 % LAB HEMETOLOGY METHOD 06/06/2024 8:35 AM EDT [facility] MCV 80.9 79.0 - 98.0 FL LAB HEMETOLOGY METHOD 06/06/2024 8:35 AM EDT [facility] MCH 23.5(L) 27.0 - [...] HOSPITAL LAB NRBC 0.0 <1.0 % LAB HEMETOLOG METHOD 06/06/2024 8:35 AM EDT [facility] NRBC Absolute 0.00 <0.10 K/mcL LAB HEMETOLOGY METHOD 06/06/2024 8:35 AM EDT [facility] Blood Venous blood specimen / Unknown Venipuncture / Unknown 06/06/2024 5:35 AM EDT 06/06/2024 8:10 AM EDT us Laurence Florence MD LAB BLOOD ORDERABLES Final Resu lt [facility] [address] [place] [address], documented in this encounter Visit Diagnoses Diagnosis Cellulitis of right lower limb End stage renal disease (CMS/HCC V24, CMS/HCC V28) End stage renal disease documented in this encounter Care Teams Africana Studies Professor Relationship Specialty Start Date End Date Cass Turcios MD [address] [place] [address] [address] [place] [address] PCP - General Geriatric Medicine 04/02/24 documented as of this encounter
== END 2024-09-24 11:28 | disposition home or self-care (01) ==
LOC: HO.HOS 09:57
PROVIDERS: Visit Provider Orthopaedic Surgery
DX: Z89.021 Acquired absence of right finger(s) (principal); M86.9 Osteomyelitis, unspecified; E11.9 Type 2 diabetes mellitus without complications; I50.43 Acute on chronic combined systolic (congestive) and diastolic (congestive) heart failure; N18.6 End stage renal disease; Z99.2 Dependence on renal dialysis; R20.0 Anesthesia of skin; R20.2 Paresthesia of skin; I73.9 Peripheral vascular disease, unspecified; S61.401A Unspecified open wound of right hand, initial encounter; I96 Gangrene, not elsewhere classified
CPT/HCPCS: 99024

== ENCOUNTER → 2024-09-24 09:57 | Outpatient (BNVA) | payer MEDICARE, MEDICAID, SELFPAY | PROVIDERS: Visit Provider Orthopaedic Surgery | DX: Z47.81 Encounter for orthopedic aftercare following surgical amputation (principal); Z89.021 Acquired absence of right finger(s); S61.401A Unspecified open wound of right hand, initial encounter; E11.69 Type 2 diabetes mellitus with other specified complication; M86.8X4 Other osteomyelitis, hand; E11.52 Type 2 diabetes mellitus with diabetic peripheral angiopathy with gangrene; I96 Gangrene, not elsewhere classified; E11.22 Type 2 diabetes mellitus with diabetic chronic kidney disease; I13.0 Hypertensive heart and chronic kidney disease with heart failure and stage 1 through stage 4 chronic kidney disease, or unspecified chronic kidney disease; I50.43 Acute on chronic combined systolic (congestive) and diastolic (congestive) heart failure; N18.6 End stage renal disease; R20.2 Paresthesia of skin; Z99.2 Dependence on renal dialysis; Z79.4 Long term (current) use of insulin; Z79.2 Long term (current) use of antibiotics; Z79.891 Long term (current) use of opiate analgesic | CPT/HCPCS: 99212 ==

== ENCOUNTER 2024-10-02 10:49 | Outpatient (AMB) | payer MEDICARE, MEDICAID, SELFPAY ==
--- NOTE | 2024-10-02 10:54 | MHC.OFFVIS ---
Intake Visit Reasons: PO 3 wk RT MF/IF amp 09/12/24 AR-wound check Intake Note: Beau is a 69 year old male who presents today post-operatively status post right repeat I&D & revision amputation, final level mid metacarpal of the 2nd through 5th metacarpals, DOS: 09/16/24. Presents today for a wound check. Patient reports he is doing well. He complains of hand pain during the night time. He states he takes oxycodone for his pain and it offers some relief. REports feeling cramping and tingling sensations throughout the right hand. Director Of Individual Giving Required: Yes Director Of Individual Giving Language: Boxing Trainer Services: Director Of Individual Giving Present Director Of Individual Giving Name: Brianna REID/KANWAL Allergies Iodinated Contrast Media (Contrast Dye) Allergy (Severe, Verified 10/02/24 10:59) Facial Swelling hydralazine Adverse Reaction (Severe, Verified 10/02/24 10:59) vasculitis HPI HPI PO 3 wk RT MF/IF amp 09/12/24 AR-wound check: Details: Beau is a 69 year old male who presents today post-operatively status post right repeat I&D & revision amputation, final level mid metacarpal of the 2nd through 5th metacarpals, DOS: 09/16/24. Presents today for a wound check. Patient reports he is doing well. He complains of hand pain during the night time. He states he takes oxycodone for his pain and it offers some relief. Reports feeling cramping and tingling sensations throughout the right hand. [facility] Medical History Gangrene of hand Above knee amputation of right lower extremity Left ventricular systolic dysfunction (LVSD) PVD (peripheral vascular disease) Postop check Acute pericardial effusion Right sided weakness Dehiscence of wound Peripheral arterial disease Dry gangrene Cellulitis of right foot HFrEF (heart failure with reduced ejection fraction) Chronic combined systolic and diastolic CHF (congestive heart failure) Chronic pericardial effusion Arthritis Asthma Restless leg syndrome Acute on chronic systolic and diastolic heart failure, NYHA class 3 Anemia Occlusive thrombus Pulmonary edema ROBERT (obstructive sleep apnea) Type 2 diabetes mellitus Hyperlipidemia Hypertension A-V fistula ESRD on dialysis Falling Surgical History Status post creation of pericardial window 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 Mother No problems noted. 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 We did not suture the skin edges tightly in line with the 3rd metacarpal, as he had had an infection that tracked along the flexor tendons to the middle finger back to the carpal tunnel area. This was washed out a couple of times. This part of the wound was left open to facilitate any drainage that might be necessary. The area appears moist but I do not appreciate any drainage. I palpated along the line of the flexor tendons to the middle finger and he was not particularly tender in that area or elsewhere in the hand. He said that all in all his pain is better. Importantly there is no odor appreciated today in clinic. There appears to be some dehiscence along the middle aspect of the wound, however the most radial and ulnar aspects of the wound are still sutured closed tightly He has good sensation and good motion of the thumb and of the wrist joint. Sensation is intact Cap refill is brisk Microbiology report: Routine Culture Final 09/19/24-725 Organism 1 Proteus mirabilis Quantity 2+ Organism 2 Citrobacter freundii Quantity 1+ Organism 3 Klebsiella oxytoca Quantity 2+ Refer to the other culture collected on 09/12/2024 for susceptibility results of Proteus mirabilis and Klebsiella oxytoca. (CULTURE # [id number]) C freundii M.I.C. RX --------- --- Cefazolin >=32 R Cefepime 0.5 S Ceftriaxone >=64 R Ciprofloxacin <=0.06 S Gentamicin <=1 S Trimethoprim/Sulfamethoxazole <=20 S Psych Appearance: grossly normal Affect: normal affect Attitude: cooperative Assessment & Plan Assessment & Plan (1) Status post amputation of finger of right hand: Code(s): Z89.021 - Acquired absence of right finger(s) Category: Surgical (2) 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: Code(s): Z89.021 - Acquired absence of right finger(s) Category: Surgical (3) Osteomyelitis of right hand: Code(s): M86.9 - Osteomyelitis, unspecified Category: Medical (4) Type 2 diabetes mellitus: Comment: taking insulin-no oral Rx Code(s): E11.9 - Type 2 diabetes mellitus without complications Category: Medical (5) Acute on chronic systolic and diastolic heart failure, NYHA class 3: Code(s): I50.43 - Acute on chronic combined systolic (congestive) and diastolic (congestive) heart failure Category: Medical (6) ESRD needing dialysis: Code(s): N18.6 - End stage renal disease; Z99.2 - Dependence on renal dialysis Category: Medical (7) Numbness and tingling in right hand: Code(s): R20.0 - Anesthesia of skin; R20.2 - Paresthesia of skin Category: Medical (8) PVD (peripheral vascular disease): Code(s): I73.9 - Peripheral vascular disease, unspecified Category: Medical (9) Necrotic wound of right hand: Code(s): S61.401A - Unspecified open wound of right hand, initial encounter; I96 - Gangrene, not elsewhere classified Category: Medical Plan Assessment & Plan: 1. Right middle finger necrosis 2. Right Index finger necrosis S/P multiple procedures performed by Dr. Witt: A) Right middle finger MCP joint level amputation Right index finger PIP joint level amputation DOS: 08/27/24 B) Right middle finger I&D with metacarpal head resection DOS: 08/30/24 C) Right middle finger debridement DOS: 09/01/24 3. Worsening necrosis of the right index finger 4. Necrosis of the right ring finger 5. Impending necrosis of the right small finger 6. Deep palmar space hand infection extending from middle finger flexor tendons to deep palmar space Status post multiple procedures performed by Dr. Rosales: D) Right hand I&D including I&D of 3rd metacarpal bone, and index finger proximal phalanx bone Right index finger revision amputation at the proximal phalanx level DOS: 09/09/24 E) Right hand ray amputations of the index finger, ring finger and small finger Right hand I and D of deep mid palmar space infection DOS: 09/12/2024 F) Right hand I&D of necrotic soft tissue and deep palmar space infection Shortening of the 3rd and 4th metacarpal shafts to facilitate closure DOS: 09/14/24 G) Right hand I&D of necrotic soft tissue and bone Revision amputation of the right 2nd and 3rd metacarpals to facilitate closure without tension DOS: 09/16/24 The patient appears to be doing well post-operatively I educated him and his son about the post-operative course I explained the signs and symptoms of infection, if the patient develops any new or worsening erythema, drainage, pain, or warmth they should contact the clinic or attend the ED. It sounds like he is currently receiving outpatient wound care. He will continue to take his PO levofloxacin x 6 wk and metronidazole x 2 wk, which began on 09/18/24 per ID I discussed activity modifications, he is to lift nothing heavier than a cellphone for the next 8 weeks He will follow up in 2 weeks for a wound check, anticipate suture removal at that time Scribe Plan - Not visible on output: Scribed for Beatriz Rosales MD by Rolando Mosqueda, medical surgical tech, on [ ] at [ ], EST. Coding Level of Care Code Global (24056) Diagnoses Status post amputation of finger of right hand Z89.021 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 Z89.021 Osteomyelitis of right hand M86.9 Type 2 diabetes mellitus E11.9 Acute on chronic systolic and diastolic heart failure, NYHA class 3 I50.43 ESRD needing dialysis N18.6; Z99.2 Numbness and tingling in right hand R20.0; R20.2 PVD (peripheral vascular disease) I73.9 Necrotic wound of right hand S61.401A; I96
--- OUTSIDE RECORDS SUMMARY | 2024-10-02 11:48 | XMS_ITS | Clinical Summary ---
Author Organization [facility] Address [address] [place] [address] [address] [place] [address] Care Team Providers Care Tar Chaser Name Role Phone Unavailable Primary Care Provider [...]
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
--- OUTSIDE RECORDS SUMMARY | 2024-10-02 11:48 | XMS_ITS | Encounter Summary ---
Author Organization [facility] Address [address] [facility] [address] [facility] [address] [place] [address] Phone Care Team Providers Care Printing Sign Machine Operator Name Role Phone Jade Lewis MD Primary Care Provider [phone] Reason for Visit * Reason Onset Date Comments Med Refill 04/19/2022 Encounter Details Date Type Department Care Team (Late st Contact Info) Description 04/19/2022 Refill [facility] [address] [facility] [address] [place] [phone] Loida Madsen Social History Tobacco Use Types [...] as of this encounter Plan of Treatment Upcoming Encounters Date Type Department Care Team (Late st Contact Info) Description 10/15/2024 7:30 AM EDT Scheduled Only [facility] [address] [place] [address] [place] [phone] documented as of this encounter Visit Diagnoses Not on filedocumented in this encounter Care Teams Printing Sign Machine Operator Relationship Specialty Start Date End Date Jade Lewis MD [address] [place] [address] PCP - General Internal Medicine 04/25/22 documented as of this encounter
--- OUTSIDE RECORDS SUMMARY | 2024-10-02 11:48 | XMS_ITS | Encounter Summary ---
Author Organization [facility] Address [address] [place] [address] Care Team Providers Care Process Artist Name Role Phone Cass Turcios MD Primary Care Provider [phone] Encounter Details Date Type Department Care Team (Late st Contact Info) Description 06/06/2024 Lab Requisition [facility] [address] [facility] [place] [address] Laurence Florence MD [address] [place] [phone] Cellulitis of right lower limb; End stage [...] mmol/L LAB CHEMISTRY METHOD 06/06/2024 8:59 AM [facility] Potassium 4.3 3.5 - 5.5 mmol/L LAB CHEMISTRY METHOD 06/06/2024 8:59 AM [facility] Chloride 106 96 - 110 mmol/L LAB CHEMISTRY METHOD 06/06/2024 8:59 AM [facility] CO2 27 21 - 32 mmol/L LAB CHEMISTRY METHOD 06/06/2024 8:59 AM [facility] Anion Gap 6 3 - 11 LAB CHEMISTRY METHOD 06/06/2024 8:59 AM [facility] Glucose 162(H) 70 - 100 mg/dL LAB CHEMISTRY METHOD 06/06/2024 8:59 AM [facility] BUN 28(H) 5 - 25 mg/dL LAB CHEMISTRY METHOD 06/06/2024 8:59 AM [facility] Creatinine 3.78(H) 0.70 - 1.30 mg/dL LAB CHEMISTRY METHOD 06/06/2024 8:59 AM [facility] eGFR 17(L) >=60 mL/min/1. 73m2 LAB CHEMISTRY METHOD 06/06/2024 8:59 AM [facility] Comment:Calculation based on the Chronic Kidney Disease Epidemiology Collaboration (CKD-EPI) equation refit without adjustment for race. BUN/Creatinine Ratio 7.4 LAB CHEMISTRY METHOD 06/06/2024 8:59 AM [facility] Calcium 9.1 8.5 - 10.5 mg/dL LAB CHEMISTRY METHOD 06/06/2024 8:59 AM [facility] Blood Venous blood specimen / Unknown Venipuncture / Unknown 06/06/2024 5:35 AM EDT 06/06/2024 8:10 AM EDT us Laurence Florence MD LAB BLOOD ORDERABLES Final Resu lt [facility] [address] [place] [address], [place] [phone] * (ABNORMAL) Complete blood count (06/06/2024 5:35 AM EDT) WBC 9.3 4.8 - 10.8 K/mcL LAB HEMETOLOGY METHOD 06/06/2024 8:[address] [facility] RBC 3.20(L) 4.50 - 5.50 M/mcL LAB HEMETOLOGY METHOD 06/06/2024 8:[address] [facility] Hemoglobin 7.6(L) 13.5 - 17.5 g/dL LAB HEMETOLOGY METHOD 06/06/2024 8:[address] [facility] Hematocrit 26.2(L) 42.0 - 54.0 % LAB HEMETOLOGY METHOD 06/06/2024 8:[address] [facility] MCV 80.9 79.0 - 98.0 FL LAB HEMETOLOGY METHOD 06/06/2024 8:[address] [facility] MCH 23.5(L) 27.0 - 32.0 pcg LAB HEMETOLOGY METHOD 06/06/2024 8:[address] [facility] MCHC 29.0(L) 32.0 - 37.0 g/dL LAB HEMETOLOGY METHOD 06/06/2024 8:[address] [facility] RDW 16.8(H) 11.0 - 15.0 % LAB HEMETOLOGY METHOD 06/06/2024 8:[address] [facility] Platelets 264 130 - 400 K/mcL LAB HEMETOLOGY METHOD 06/06/2024 8:[address] [facility] MPV 12.3(H) 7.0 - 11.0 FL LAB HEMETOLOGY METHOD 06/06/2024 8:[address] [facility] NRBC 0.0 <1.0 % LAB HEMETOLOG METHOD 06/06/2024 8:[address] [facility] NRBC Absolute 0.00 <0.10 K/mcL LAB HEMETOLOGY METHOD 06/06/2024 8:[address] [facility] Blood Venous blood specimen / Unknown Venipuncture / Unknown 06/06/2024 5:35 AM EDT 06/06/2024 8:10 AM EDT us Laurence Florence MD LAB BLOOD ORDERABLES Final Resu lt [facility] [address] [place] [address], documented in this encounter Visit Diagnoses Diagnosis Cellulitis of right lower limb End stage renal disease (CMS/HCC V24, CMS/HCC V28) End stage renal disease documented in this encounter Care Teams Process Artist Relationship Specialty Start Date End Date Cass Turcios MD [address] [place] [address] [address] [place] [address] PCP - General Geriatric Medicine 04/02/24 documented as of this encounter
== END 2024-10-02 11:44 | disposition home or self-care (01) ==
LOC: HO.HOS 10:49
DX: E11.51 Type 2 diabetes mellitus with diabetic peripheral angiopathy without gangrene (principal); M86.9 Osteomyelitis, unspecified; I50.43 Acute on chronic combined systolic (congestive) and diastolic (congestive) heart failure; N18.6 End stage renal disease; I96 Gangrene, not elsewhere classified; Z89.021 Acquired absence of right finger(s); Z99.2 Dependence on renal dialysis; R20.0 Anesthesia of skin; R20.2 Paresthesia of skin; I73.9 Peripheral vascular disease, unspecified; S61.401A Unspecified open wound of right hand, initial encounter
CPT/HCPCS: 99024

== ENCOUNTER → 2024-10-02 10:49 | Outpatient (BNVA) | payer MEDICARE, MEDICAID, SELFPAY | DX: Z47.81 Encounter for orthopedic aftercare following surgical amputation (principal); Z89.021 Acquired absence of right finger(s); S61.401D Unspecified open wound of right hand, subsequent encounter; E11.69 Type 2 diabetes mellitus with other specified complication; M86.8X4 Other osteomyelitis, hand; E11.52 Type 2 diabetes mellitus with diabetic peripheral angiopathy with gangrene; I96 Gangrene, not elsewhere classified; E11.22 Type 2 diabetes mellitus with diabetic chronic kidney disease; I13.0 Hypertensive heart and chronic kidney disease with heart failure and stage 1 through stage 4 chronic kidney disease, or unspecified chronic kidney disease; I50.43 Acute on chronic combined systolic (congestive) and diastolic (congestive) heart failure; N18.6 End stage renal disease; Z99.2 Dependence on renal dialysis; Z79.4 Long term (current) use of insulin; Z79.2 Long term (current) use of antibiotics; Z79.891 Long term (current) use of opiate analgesic | CPT/HCPCS: 99212 ==

== ENCOUNTER 2024-10-15 09:52 | Outpatient (REF) | payer MEDICARE, MEDICAID, SELFPAY ==
--- NOTE | ~2024-10-15 | XR_ITS ---
EXAMINATION: XR HAND, RIGHT CLINICAL INFORMATION: M79.641 - Pain in right hand COMPARISON: September 09, 2024. TECHNIQUE: PA of the right and lateral views of the right hand stump. FINDINGS: The right thumb demonstrates no osteolysis. Status post amputation of the digits and transverse metacarpal amputation. Vascular calcifications. No subcutaneous emphysema. XR/XR hand RT min 3V IMPRESSION: Status post metacarpal amputation. Atherosclerosis disease, peripheral. No gross osteomyelitis on x-ray. Electronically signed by: Douglas Lundberg MD 10/15/2024 03:34 PM EDT
== END 2024-10-15 09:53 | disposition home or self-care (01) ==
LOC: HO.HOSX 09:52
PROVIDERS: Visit Provider Surgery Vascular Surgery
DX: I73.9 Peripheral vascular disease, unspecified (principal); S61.401A Unspecified open wound of right hand, initial encounter; M79.641 Pain in right hand; M86.9 Osteomyelitis, unspecified; I50.43 Acute on chronic combined systolic (congestive) and diastolic (congestive) heart failure; E11.22 Type 2 diabetes mellitus with diabetic chronic kidney disease; N18.6 End stage renal disease; R20.0 Anesthesia of skin; R20.2 Paresthesia of skin; Z89.021 Acquired absence of right finger(s); Z99.2 Dependence on renal dialysis
CPT/HCPCS: 73130; 99212

== ENCOUNTER 2024-10-15 09:52 | Outpatient (AMB) | payer MEDICARE, MEDICAID, SELFPAY ==
--- NOTE | 2024-10-15 10:27 | A.OFFVIS_ITS ---
Int[place] [facility] [place] Intake Note: Hospital follow up for Left great toe ulcer and calf ulcer w/ hx of Right AKA which is now healed per son. Pt has VNA daily and is changing dressing along with his son. Also does to woundcare Rehabilitation Nurse Required: No Accompanied by: Son Allergies Iodinated Contrast Media (Contrast Dye) Allergy (Severe, Verified 10/15/24 10:29) Facial Swelling hydralazine Adverse Reaction (Severe, Verified 10/15/24 10:29) vasculitis HPI [place] [facility] [place]: Details: Very pleasant 61-year-old gentleman presents for hospital follow-up. He had undergone right AKA by us. He subsequently ended up in the hospital with necrosis of the right upper extremity digits. He underwent intervention and reintervention by Orthopedics. He reports he is doing fairly well. He continues to have left great toe and left posterior calf nonhealing ulcers. He now presents for routine follow-up. [facility] Medical History Gangrene of hand Above knee amputation of right lower extremity Left ventricular systolic dysfunction (LVSD) PVD (peripheral vascular disease) Postop check Acute pericardial effusion Right sided weakness Dehiscence of wound Peripheral arterial disease Dry gangrene Cellulitis of right foot HFrEF (heart failure with reduced ejection fraction) Chronic combined systolic and diastolic CHF (congestive heart failure) Chronic pericardial effusion Arthritis Asthma Restless leg syndrome Acute on chronic systolic and diastolic heart failure, NYHA class 3 Anemia Occlusive thrombus Pulmonary edema ROBERT (obstructive sleep apnea) Type 2 diabetes mellitus Hyperlipidemia Hypertension A-V fistula ESRD on dialysis Falling Surgical History Status post creation of pericardial window 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 Mother No problems noted. 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 Review of Systems Const All systems reviewed & are unremarkable except as noted in HPI and below Reports no additional complaints ENT Reports Normal hearing present Card Denies chest pain, Denies chest pain at rest, Denies chest pain with activity and Denies pedal edema Resp Denies cough GI Denies abdominal pain Musc Denies abnormal gait, Denies muscle cramps and Denies radiating pain into limb Skin/Breast Denies skin ulcer and Denies wounds Neuro Reports Normal hearing present and Denies abnormal gait Psych Reports no additional complaints Physical Exam Const General: cooperative, healthy appearing and comfortable Orientation/consciousness: oriented to person, oriented to place and oriented to time HEENT Head: Yes normal to inspection Neck Neck: Yes normal visual inspection Carotids: no bruits Chest Chest palpation & inspection: normal inspection of the chest Resp Effort & Inspection: normal respiratory effort and able to speak in complete sentences Auscultation: clear to auscultation bilaterally, no crackles, no rales, no rhonchi and no wheezes Cardio Rate: regular rate Rhythm: regular rhythm Heart sounds: S1 normal heart sound present and S2 normal heart sound present Bruits: no carotid bruits Peripheral pulses: Peripheral pulses 2+ throughout GI Inspection: Yes normal to inspection Skin Other: Left great toe dry gangrene left posterior calf 10 x 5 x 0.1 cm with some dry eschar overlying this wound. But in general appears to be relatively clean. Wounds: no wounds Hair: normal Neuro General: oriented to person, oriented to place and oriented to time Cranial nerves: Yes CN's II-XII intact bilaterally and Yes Normal hearing present Cognition (Neuro): normal cognition Motor exam (neuro): 5/5 motor strength present throughout Extrem Other: venous exam: No significant superficial varicosities or spider telangiectasias, minimal edema General: No clubbing, No cyanosis and No edema Psych Appearance: grossly normal Mental Status: mental status grossly normal Speech and movement: Normal speech and movement present Assessment & Plan Assessment & Plan (1) PVD (peripheral vascular disease): Code(s): I73.9 - Peripheral vascular disease, unspecified Category: Medical Plan: In short Beau has nonhealing left leg ulcers. At the current time I would like the hand to heal. In addition it is slowly improving with wound care. Concern here is there may be underlying tertiary hyperparathyroidism secondary to his dialysis. He will follow up with us on an as-needed basis. He will continue his current regimen with [facility]. He can follow up with us in approximately 1 months time. Thank you for allowing us to assist in his care. Coding Level of Care Code Est Pt Level 4 (40151) Diagnoses PVD (peripheral vascular disease) I73.9
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
--- OUTSIDE RECORDS SUMMARY | 2024-10-15 10:39 | XMS_ITS | Clinical Summary ---
Author Organization [facility] Address [address] [place] [address] [address] [place] [address] Care Team Providers Care Otorhinolaryngologist Name Role Phone Unavailable Primary Care Provider [...]
== END 2024-10-15 11:20 | disposition home or self-care (01) ==
LOC: HO.HVS 09:53
PROVIDERS: Visit Provider Surgery Vascular Surgery
DX: I73.9 Peripheral vascular disease, unspecified (principal)
CPT/HCPCS: 99214

== ENCOUNTER 2024-10-15 14:50 | Outpatient (AMB) | payer MEDICARE, MEDICAID, SELFPAY ==
--- NOTE | 2024-10-15 14:55 | A.OFFVIS_ITS ---
Vital Signs 10/15/24 14:56 Height 5 ft 4 in Weight 159 lb BMI 27.3 Intake Visit Reasons: PO-RT MF/IF amp 09/12/24 AR-wound check Intake Note: Beau is a 69 year old hand dominant male who presents today post-operatively for a wound check status post right repeat I&D & revision amputation, final level mid metacarpal of the 2nd through 5th metacarpals, DOS: 09/16/[address] Rosales. At their last post-operative visit patient was instructed to continue taking his levofloxacin and metronidazole. He was further instructed to not lift anything heavier than a cellphone for the upcoming 8 weeks. Today patient complains of tingling, feels like the fingers are still there . He complains of pain, no pain meds currently. Patient continues taking antibiocs as prescribed, requesting refill. Front End Web Designer Required: No Allergies Iodinated Contrast Media (Contrast Dye) Allergy (Severe, Verified 10/15/24 10:29) Facial Swelling hydralazine Adverse Reaction (Severe, Verified 10/15/24 10:29) vasculitis HPI HPI PO-RT MF/IF amp 09/12/24 AR-wound check: Details: Beau is a 69 year old hand dominant male who presents today post-operatively for a wound check status post right repeat I&D & revision amputation, final level mid metacarpal of the 2nd through 5th metacarpals, DOS: 09/16/[address] Rosales. At their last post-operative visit patient was instructed to continue taking his levofloxacin and metronidazole. He was further instructed to not lift anything heavier than a cellphone for the upcoming 8 weeks. Today patient complains of tingling, feels like the fingers are still there . He complains of pain, no pain meds currently. Patient continues taking antibiocs as prescribed. [facility] Medical History Gangrene of hand Above knee amputation of right lower extremity Left ventricular systolic dysfunction (LVSD) PVD (peripheral vascular disease) Postop check Acute pericardial effusion Right sided weakness Dehiscence of wound Peripheral arterial disease Dry gangrene Cellulitis of right foot HFrEF (heart failure with reduced ejection fraction) Chronic combined systolic and diastolic CHF (congestive heart failure) Chronic pericardial effusion Arthritis Asthma Restless leg syndrome Acute on chronic systolic and diastolic heart failure, NYHA class 3 Anemia Occlusive thrombus Pulmonary edema ROBERT (obstructive sleep apnea) Type 2 diabetes mellitus Hyperlipidemia Hypertension A-V fistula ESRD on dialysis Falling Surgical History Status post creation of pericardial window 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 Mother No problems noted. 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 We did not suture the skin edges tightly in line with the 3rd metacarpal, as he had had an infection that tracked along the flexor tendons to the middle finger back to the carpal tunnel area. This was washed out a couple of times. This part of the wound was left open to facilitate any drainage that might be necessary. The area appears moist but I do not appreciate any drainage. I palpated along the line of the flexor tendons to the middle finger and he was not particularly tender in that area or elsewhere in the hand. He said that all in all his pain is better. Importantly there is no odor appreciated today in clinic. There appears to be some dehiscence along the middle aspect of the wound, however the most radial and ulnar aspects of the wound are still sutured closed tightly He has good sensation and good motion of the thumb and of the wrist joint. Sensation is intact Cap refill is brisk Microbiology report: Routine Culture Final 09/19/24 Organism 1 Proteus mirabilis Quantity 2+ Organism 2 Citrobacter freundii Quantity 1+ Organism 3 Klebsiella oxytoca Quantity 2+ Refer to the other culture collected on 09/12/2024 for susceptibility results of Proteus mirabilis and Klebsiella oxytoca. (CULTURE # [id number]) C freundii M.I.C. RX --------- --- Cefazolin >=32 R Cefepime 0.5 S Ceftriaxone >=64 R Ciprofloxacin <=0.06 S Gentamicin <=1 S Trimethoprim/Sulfamethoxazole <=20 S Psych Appearance: grossly normal Affect: normal affect Attitude: cooperative Results Reviewed Results Reviewed: X-rays obtained in the office today and independently reviewed by me, Bala Gtz PA-C, demonstrate status post metacarpal shaft level amputations of the 2nd through 5th metacarpals of the right hand with no evidence of osteomyelitis. Assessment & Plan Assessment & Plan (1) Status post amputation of finger of right hand: Code(s): Z89.021 - Acquired absence of right finger(s) Category: Surgical (2) 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: Code(s): Z89.021 - Acquired absence of right finger(s) Category: Surgical (3) Osteomyelitis of right hand: Code(s): M86.9 - Osteomyelitis, unspecified Category: Medical (4) Type 2 diabetes mellitus: Comment: taking insulin-no oral Rx Code(s): E11.9 - Type 2 diabetes mellitus without complications Category: Medical (5) Acute on chronic systolic and diastolic heart failure, NYHA class 3: Code(s): I50.43 - Acute on chronic combined systolic (congestive) and diastolic (congestive) heart failure Category: Medical (6) ESRD needing dialysis: Code(s): N18.6 - End stage renal disease; Z99.2 - Dependence on renal dialysis Category: Medical (7) Numbness and tingling in right hand: Code(s): R20.0 - Anesthesia of skin; R20.2 - Paresthesia of skin Category: Medical (8) PVD (peripheral vascular disease): Code(s): I73.9 - Peripheral vascular disease, unspecified Category: Medical (9) Necrotic wound of right hand: Code(s): S61.401A - Unspecified open wound of right hand, initial encounter; I96 - Gangrene, not elsewhere classified Category: Medical Plan Assessment & Plan: 1. Right middle finger necrosis 2. Right Index finger necrosis S/P multiple procedures performed by Dr. Witt: A) Right middle finger MCP joint level amputation Right index finger PIP joint level amputation DOS: 08/27/24 B) Right middle finger I&D with metacarpal head resection DOS: 08/30/24 C) Right middle finger debridement DOS: 09/01/24 3. Worsening necrosis of the right index finger 4. Necrosis of the right ring finger 5. Impending necrosis of the right small finger 6. Deep palmar space hand infection extending from middle finger flexor tendons to deep palmar space Status post multiple procedures performed by Dr. Rosales: D) Right hand I&D including I&D of 3rd metacarpal bone, and index finger proximal phalanx bone Right index finger revision amputation at the proximal phalanx level DOS: 09/09/24 E) Right hand ray amputations of the index finger, ring finger and small finger Right hand I and D of deep mid palmar space infection DOS: 09/12/2024 F) Right hand I&D of necrotic soft tissue and deep palmar space infection Shortening of the 3rd and 4th metacarpal shafts to facilitate closure DOS: 09/14/24 G) Right hand I&D of necrotic soft tissue and bone Revision amputation of the right 2nd and 3rd metacarpals to facilitate closure without tension DOS: 09/16/24 The patient appears to be doing well post-operatively I educated him and his son about the post-operative course I explained the signs and symptoms of infection, if the patient develops any new or worsening erythema, drainage, pain, or warmth they should contact the clinic or attend the ED. It sounds like he is currently receiving outpatient wound care. He will continue to take his PO levofloxacin x 6 wk and metronidazole x 2 wk, which began on 09/18/24 per ID I discussed activity modifications, he is to lift nothing heavier than a cellphone for the next 8 weeks Every other suture removed today, we will remove other sutures in 1-2 weeks Continue with daily dressing changes and lightly washing the area with soap and water in the sink of the shower, only avoiding open area Patient should continue to follow-up with wound care No evidence of ongoing necrosis at this time Follow-up in 1-2 weeks for remaining suture removal, sooner with any acute concerns Orders: Orders XR hand RT min 3V Today M79.641 - Pain in right hand Scribe Plan - Not visible on output: Scribed for Beatriz Rosales MD by Rolando Mosqueda, medical underwriter, on [ ] at [ ], EST. Coding Level of Care Code Global (02545) Diagnoses Status post amputation of finger of right hand Z89.021 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 Z89.021 Osteomyelitis of right hand M86.9 Type 2 diabetes mellitus E11.9 Acute on chronic systolic and diastolic heart failure, NYHA class 3 I50.43 ESRD needing dialysis N18.6; Z99.2 Numbness and tingling in right hand R20.0; R20.2 PVD (peripheral vascular disease) I73.9 Necrotic wound of right hand S61.401A; I96
[2024-10-15 14:56] VITALS: BMI 27.3
== END 2024-10-15 15:45 | disposition home or self-care (01) ==
LOC: HO.HOS 14:51
DX: Z89.021 Acquired absence of right finger(s) (principal); M86.9 Osteomyelitis, unspecified; E11.9 Type 2 diabetes mellitus without complications; I50.43 Acute on chronic combined systolic (congestive) and diastolic (congestive) heart failure; N18.6 End stage renal disease; Z99.2 Dependence on renal dialysis; R20.0 Anesthesia of skin; R20.2 Paresthesia of skin; I73.9 Peripheral vascular disease, unspecified; S61.401A Unspecified open wound of right hand, initial encounter; I96 Gangrene, not elsewhere classified
CPT/HCPCS: 99024

== ENCOUNTER → 2024-10-15 14:52 | Outpatient (BNV) | payer MEDICARE, MEDICAID, SELFPAY | PROVIDERS: Visit Provider Radiology Diagnostic Radiology | DX: M79.641 Pain in right hand (principal); I70.90 Unspecified atherosclerosis | CPT/HCPCS: 73130 ==

== ENCOUNTER 2024-10-23 13:20 | Outpatient (AMB) | payer MEDICARE, MEDICAID, SELFPAY ==
--- NOTE | 2024-10-23 13:29 | MHC.OFFVIS ---
Vital Signs 10/23/24 13:43 Height 5 ft 4 in Weight 159 lb BMI 27.3 Intake Visit Reasons: PO: rt repeat I&D & revision ampu 09/16/24 Intake Note: Beau is a 69 year old hand dominant male who presents today post-operatively for a wound check status post right repeat I&D & revision amputation, final level mid metacarpal of the 2nd through 5th metacarpals, DOS: 09/16/[address] Rosales. At his last visit he was advised to continue taking levofloxacin and metronidazole. He was further advised to not lift anything heavier than a cellphone for the next 8 weeks and to continue daily dressing changes, washing the area with soap and water. Allergies Iodinated Contrast Media (Contrast Dye) Allergy (Severe, Verified 10/23/24 13:30) Facial Swelling hydralazine Adverse Reaction (Severe, Verified 10/23/24 13:30) vasculitis HPI HPI PO: rt repeat I&D & revision ampu 09/16/24: Details: Beau is a 69 year old hand dominant male who presents today post-operatively for a wound check status post right repeat I&D & revision amputation, final level mid metacarpal of the 2nd through 5th metacarpals, DOS: 09/16/[address] Rosales. At his last visit he was advised to continue taking levofloxacin and metronidazole. He was further advised to not lift anything heavier than a cellphone for the next 8 weeks and to continue daily dressing changes, washing the area with soap and water. The patient and his son both report that they are satisfied with how his hand looks, stating that they feel it is healing very well, however there is still a fairly large open area. Patient reports that he has been seen by wound care, and they feel his wound is healing very well. [facility] Medical History Gangrene of hand Above knee amputation of right lower extremity Left ventricular systolic dysfunction (LVSD) PVD (peripheral vascular disease) Postop check Acute pericardial effusion Right sided weakness Dehiscence of wound Peripheral arterial disease Dry gangrene Cellulitis of right foot HFrEF (heart failure with reduced ejection fraction) Chronic combined systolic and diastolic CHF (congestive heart failure) Chronic pericardial effusion Arthritis Asthma Restless leg syndrome Acute on chronic systolic and diastolic heart failure, NYHA class 3 Anemia Occlusive thrombus Pulmonary edema ROBERT (obstructive sleep apnea) Type 2 diabetes mellitus Hyperlipidemia Hypertension A-V fistula ESRD on dialysis Falling Surgical History Status post creation of pericardial window 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 Mother No problems noted. 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 We did not suture the skin edges tightly in line with the 3rd metacarpal, as he had had an infection that tracked along the flexor tendons to the middle finger back to the carpal tunnel area. This was washed out a couple of times. This part of the wound was left open to facilitate any drainage that might be necessary. The area appears moist but I do not appreciate any drainage. I palpated along the line of the flexor tendons to the middle finger and he was not particularly tender in that area or elsewhere in the hand. He said that all in all his pain is better. Importantly there is no odor appreciated today in clinic. There appears to be some dehiscence along the middle aspect of the wound, however the most radial and ulnar aspects of the wound are still well healing and closed He has good sensation and good motion of the thumb and of the wrist joint. Sensation is intact Cap refill is brisk Microbiology report: Routine Culture Final 09/19/24 Organism 1 Proteus mirabilis Quantity 2+ Organism 2 Citrobacter freundii Quantity 1+ Organism 3 Klebsiella oxytoca Quantity 2+ Refer to the other culture collected on 09/12/2024 for susceptibility results of Proteus mirabilis and Klebsiella oxytoca. (CULTURE # [id number]) C freundii M.I.C. RX --------- --- Cefazolin >=32 R Cefepime 0.5 S Ceftriaxone >=64 R Ciprofloxacin <=0.06 S Gentamicin <=1 S Trimethoprim/Sulfamethoxazole <=20 S Psych Appearance: grossly normal Affect: normal affect Attitude: cooperative Assessment & Plan Assessment & Plan (1) PVD (peripheral vascular disease): Code(s): I73.9 - Peripheral vascular disease, unspecified Category: Medical (2) Type 2 diabetes mellitus: Comment: taking insulin-no oral Rx Code(s): E11.9 - Type 2 diabetes mellitus without complications Category: Medical (3) Osteomyelitis: Code(s): M86.9 - Osteomyelitis, unspecified Category: Medical Qualifiers: Laterality: right Osteomyelitis location: foot Osteomyelitis type: other acute Qualified Code(s): M86.171 - Other acute osteomyelitis, right ankle and foot (4) Cellulitis: Code(s): L03.90 - Cellulitis, unspecified Category: Medical (5) Osteomyelitis of right hand: Code(s): M86.9 - Osteomyelitis, unspecified Category: Medical (6) Status post amputation of finger of right hand: Code(s): Z89.021 - Acquired absence of right finger(s) Category: Surgical (7) 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: Code(s): Z89.021 - Acquired absence of right finger(s) Category: Surgical (8) Necrotic wound of right hand: Code(s): S61.401A - Unspecified open wound of right hand, initial encounter; I96 - Gangrene, not elsewhere classified Category: Medical (9) Dry gangrene: Comment: R IF & MF Code(s): I96 - Gangrene, not elsewhere classified Category: Medical (10) Acute on chronic systolic and diastolic heart failure, NYHA class 3: Code(s): I50.43 - Acute on chronic combined systolic (congestive) and diastolic (congestive) heart failure Category: Medical (11) ESRD needing dialysis: Code(s): N18.6 - End stage renal disease; Z99.2 - Dependence on renal dialysis Category: Medical (12) Numbness and tingling in right hand: Code(s): R20.0 - Anesthesia of skin; R20.2 - Paresthesia of skin Category: Medical Plan Assessment & Plan: 1. Right middle finger necrosis 2. Right Index finger necrosis S/P multiple procedures performed by Dr. Witt: A) Right middle finger MCP joint level amputation Right index finger PIP joint level amputation DOS: 08/27/24 B) Right middle finger I&D with metacarpal head resection DOS: 08/30/24 C) Right middle finger debridement DOS: 09/01/24 3. Worsening necrosis of the right index finger 4. Necrosis of the right ring finger 5. Impending necrosis of the right small finger 6. Deep palmar space hand infection extending from middle finger flexor tendons to deep palmar space Status post multiple procedures performed by Dr. Rosales: D) Right hand I&D including I&D of 3rd metacarpal bone, and index finger proximal phalanx bone Right index finger revision amputation at the proximal phalanx level DOS: 09/09/24 E) Right hand ray amputations of the index finger, ring finger and small finger Right hand I and D of deep mid palmar space infection DOS: 09/12/2024 F) Right hand I&D of necrotic soft tissue and deep palmar space infection Shortening of the 3rd and 4th metacarpal shafts to facilitate closure DOS: 09/14/24 G) Right hand I&D of necrotic soft tissue and bone Revision amputation of the right 2nd and 3rd metacarpals to facilitate closure without tension DOS: 09/16/24 The patient appears to be doing well post-operatively I educated him and his son about the post-operative course I explained the signs and symptoms of infection, if the patient develops any new or worsening erythema, drainage, pain, or warmth they should contact the clinic or attend the ED. Stat referral to wound care placed, as the patient will require nursing and wound care at least once to twice a week to ensure proper healing of the wound of his right hand, given the patient's significant peripheral vascular disease and diabetes. He will continue to take his PO levofloxacin x 6 wk and metronidazole x 2 wk, which began on 09/18/24 per ID I discussed activity modifications, he is to lift nothing heavier than a cellphone for the next 8 weeks Remaining sutures removed today without issue Continue with daily dressing changes and lightly washing the area with soap and water in the sink of the shower, only avoiding open area Patient should continue to follow-up with wound care No evidence of ongoing necrosis at this time Follow-up in 2 weeks for reassessment , sooner with any acute concerns Orders: Referrals Wound Care Referral E11.9 - Type 2 diabetes mellitus without complications, I73.9 - Peripheral vascular disease, unspecified, I96 - Gangrene, not elsewhere classified, L03.90 - Cellulitis, unspecified, M86.171 - Other acute osteomyelitis, right ankle and foot, M86.9 - Osteomyelitis, unspecified, S61.401A - Unspecified open wound of right hand, initial encounter, Z89.021 - Acquired absence of right finger(s) Scribe Plan - Not visible on output: Scribed for Beatriz Rosales MD by Rolando Mosqueda, medical staff specialist, on [ ] at [ ], EST. Coding Level of Care Code Global (29080) Diagnoses PVD (peripheral vascular disease) I73.9 Type 2 diabetes mellitus E11.9 Other acute osteomyelitis of right foot M86.171 Laterality: right Osteomyelitis location: foot Osteomyelitis type: other acute Cellulitis L03.90 Osteomyelitis of right hand M86.9 Status post amputation of finger of right hand Z89.021 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 Z89.021 Necrotic wound of right hand S61.401A; I96 Dry gangrene I96 Acute on chronic systolic and diastolic heart failure, NYHA class 3 I50.43 ESRD needing dialysis N18.6; Z99.2 Numbness and tingling in right hand R20.0; R20.2
[2024-10-23 13:43] VITALS: BMI 27.3
--- OUTSIDE RECORDS SUMMARY | 2024-10-23 14:15 | XMS_ITS | Clinical Summary ---
Author Organization [employer] Address [address] [place] [address] [address] [place] [address] Care Team Providers Care Bundle Cutter Name Role Phone Unavailable Primary Care Provider [...]
== END 2024-10-23 14:05 | disposition home or self-care (01) ==
LOC: HO.HOS 13:21
DX: I73.9 Peripheral vascular disease, unspecified (principal); E11.9 Type 2 diabetes mellitus without complications; M86.171 Other acute osteomyelitis, right ankle and foot; L03.90 Cellulitis, unspecified; M86.9 Osteomyelitis, unspecified; Z89.021 Acquired absence of right finger(s); S61.401A Unspecified open wound of right hand, initial encounter; I96 Gangrene, not elsewhere classified; I50.43 Acute on chronic combined systolic (congestive) and diastolic (congestive) heart failure; N18.6 End stage renal disease; Z99.2 Dependence on renal dialysis; R20.0 Anesthesia of skin; R20.2 Paresthesia of skin
CPT/HCPCS: 99024

== ENCOUNTER → 2024-10-23 13:20 | Outpatient (BNVA) | payer MEDICARE, MEDICAID, SELFPAY | DX: Z47.81 Encounter for orthopedic aftercare following surgical amputation (principal); S61.401D Unspecified open wound of right hand, subsequent encounter; Z89.021 Acquired absence of right finger(s); M86.171 Other acute osteomyelitis, right ankle and foot; I96 Gangrene, not elsewhere classified; E11.22 Type 2 diabetes mellitus with diabetic chronic kidney disease; N18.6 End stage renal disease; I13.2 Hypertensive heart and chronic kidney disease with heart failure and with stage 5 chronic kidney disease, or end stage renal disease; Z99.2 Dependence on renal dialysis; I50.43 Acute on chronic combined systolic (congestive) and diastolic (congestive) heart failure; R20.0 Anesthesia of skin; R20.2 Paresthesia of skin; Z79.4 Long term (current) use of insulin | CPT/HCPCS: 99212 ==

== ENCOUNTER 2024-11-12 10:18 | Outpatient (AMB) | payer MEDICARE, MEDICAID, SELFPAY ==
--- NOTE | 2024-11-12 10:24 | MHC.OFFVIS ---
Intake Visit Reasons: 1m follow up Intake Note: Patient presents for one month follow up. Patient states he has no new complaints. Patient has dressing changes daily, from either the visiting nurse or his son. He has a wound on his left calf that he states is healing. He also has a necrotic left great toe. Accompanied by: Son Allergies Iodinated Contrast Media (Contrast Dye) Allergy (Severe, Verified 11/12/24 10:25) Facial Swelling hydralazine Adverse Reaction (Severe, Verified 11/12/24 10:25) vasculitis HPI HPI 1m follow up: Details: Very complex 61-year-old gentleman presents for follow-up. He had undergone right above knee amputation by us. In addition he has orthopedics deal with his right hand which has had all the digits amputated as well except the thumb. He is now concerned about his left lower extremity nonhealing ulcer. [facility] Of note he is on hemodialysis regimen of Monday. He now presents to us for routine follow-up. 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 Left ventricular systolic dysfunction (LVSD) PVD (peripheral vascular disease) Postop check Acute pericardial effusion Right sided weakness Dehiscence of wound Peripheral arterial disease Dry gangrene Cellulitis of right foot HFrEF (heart failure with reduced ejection fraction) Chronic combined systolic and diastolic CHF (congestive heart failure) Chronic pericardial effusion Arthritis Asthma Restless leg syndrome Acute on chronic systolic and diastolic heart failure, NYHA class 3 Anemia Occlusive thrombus Pulmonary edema ROBERT (obstructive sleep apnea) Type 2 diabetes mellitus Hyperlipidemia Hypertension A-V fistula ESRD on dialysis Falling Surgical History Status post creation of pericardial window 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 Mother No problems noted. 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 Review of Systems Const All systems reviewed & are unremarkable except as noted in HPI and below Reports no additional complaints ENT Reports Normal hearing present Card Denies chest pain, Denies chest pain at rest, Denies chest pain with activity and Denies pedal edema Resp Denies cough GI Denies abdominal pain Musc Denies abnormal gait, Denies muscle cramps and Denies radiating pain into limb Skin/Breast Denies skin ulcer and Denies wounds Neuro Reports Normal hearing present and Denies abnormal gait Psych Reports no additional complaints Physical Exam Const General: cooperative, healthy appearing and comfortable Orientation/consciousness: oriented to person, oriented to place and oriented to time HEENT Head: Yes normal to inspection Neck Neck: Yes normal visual inspection Carotids: no bruits Chest Chest palpation & inspection: normal inspection of the chest Resp Effort & Inspection: normal respiratory effort and able to speak in complete sentences Auscultation: clear to auscultation bilaterally, no crackles, no rales, no rhonchi and no wheezes Cardio Rate: regular rate Rhythm: regular rhythm Heart sounds: S1 normal heart sound present and S2 normal heart sound present Bruits: no carotid bruits Peripheral pulses: Peripheral pulses 2+ throughout GI Inspection: Yes normal to inspection Skin Wounds: amputation site (Right leg healed well) and wounds noted (Left foot great toe) Hair: normal Neuro General: oriented to person, oriented to place and oriented to time Cranial nerves: Yes CN's II-XII intact bilaterally and Yes Normal hearing present Cognition (Neuro): normal cognition Motor exam (neuro): 5/5 motor strength present throughout Extrem Other: venous exam: No significant superficial varicosities or spider telangiectasias, minimal edema General: No clubbing, No cyanosis and No edema Psych Appearance: grossly normal Mental Status: mental status grossly normal Speech and movement: Normal speech and movement present Assessment & Plan Assessment & Plan (1) PVD (peripheral vascular disease): Code(s): I73.9 - Peripheral vascular disease, unspecified Category: Medical Plan: In short patient has a nonhealing left lower extremity ulcer. It has been sometime since we have had arterial surveillance on that. I have taken the liberty of ordering noninvasive arterial testing and he will follow up with us after that. Thank you for allowing us to assist in his care Orders: Orders US arterial duplex LE LT Today I73.9 - Peripheral vascular disease, unspecified Coding Level of Care Code Est Pt Level 4 (85407) Complex EM visit Add On G2211 Diagnoses PVD (peripheral vascular disease) I73.9
--- OUTSIDE RECORDS SUMMARY | 2024-11-12 12:05 | XMS_ITS | Clinical Summary ---
Author Organization [facility] Address [address] [place] [address] [address] [place] [address] Care Team Providers Care Blending Coordinator Name Role Phone Unavailable Primary Care [...] years 1-dose series) 2016 COVID-19 Vaccine ( - 2024- season) 2024 08/20/2021, 01/08/2021, 07/29/2020, Additional history exists Influenza [...]
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
== END 2024-11-12 11:02 | disposition home or self-care (01) ==
LOC: HO.HVS 10:18
PROVIDERS: Visit Provider Surgery Vascular Surgery
DX: I73.9 Peripheral vascular disease, unspecified (principal)
CPT/HCPCS: 99214; G2211

== ENCOUNTER → 2024-11-12 10:18 | Outpatient (BNVA) | payer MEDICARE, MEDICAID, SELFPAY | PROVIDERS: Visit Provider Surgery Vascular Surgery | DX: I73.9 Peripheral vascular disease, unspecified (principal); S78.111D Complete traumatic amputation at level between right hip and knee, subsequent encounter; Z98.890 Other specified postprocedural states | CPT/HCPCS: 99212 ==

== ENCOUNTER 2024-11-27 11:00 | Inpatient (IN) | payer MEDICARE, MEDICAID, SELFPAY ==
--- NOTE | ~2024-11-27 | CT_ITS ---
Examination: CT Foot Lt Wo Iv Con TECHNIQUE: Axial CT was performed through the left foot without contrast. Coronal and sagittal reformatted images were generated from the original axial data set. ALARA: The examination used one or more of the following radiation dose reduction techniques: Automated exposure control, iterative reconstruction, and/or adjustment of mA and/or KV. INDICATION: Evaluate for osteomyelitis Comparison 11/27/2024 x-ray FINDINGS: Extensive vascular calcifications are present throughout the lower leg, ankle, foot. There is diffuse osteopenia. Prior amputation is noted through the base of the distal phalanx of the great toe. There is gas in the soft tissues of the remaining great toe and also gas infiltrating the bone of the distal phalanx, and tracking dorsal to the head and neck of the proximal phalanx. There is also the cortical white line of the junction of the base of the first and second metatarsals and medial cuneiform. There is loss of the cortical white line lateral base of the second metatarsal. There is loss of the cortical white line at the lateral base of the fourth metatarsal and adjacent cuboid. Achilles tendon is intact. There is thickening of plantar fascia. There is reticulation of the subcutaneous soft tissues There is moderate fatty replacement of foot musculature and edema. CT/CT foot LT wo IV con IMPRESSION: There is also the cortical white line at along the intermetatarsal joint of the base of the first second metatarsals and adjacent medial cuneiform, lateral base of the second metatarsal, and the lateral base of the fourth metatarsal and adjacent cuboid. This can be related to inflammatory arthropathy such as rheumatoid arthritis, but other etiologies such as septic arthritis or osteomyelitis is not ruled out. There is soft tissue ulceration over the area of amputation involving the great toe with gas tracking into the bone marrow of the amputated distal phalanx and adjacent soft tissues. Osteomyelitis of the remaining base of the distal phalanx of the great toe cannot be ruled in or out. There is diffuse osteopenia. There is extensive vascular calcification. There is deep and superficial edema which could represent bland edema but cellulitis/myositis is not ruled out. There is thickening of plantar fascia. Electronically signed by: Braulio Ordoñez MD 12/09/2024 04:53 PM EDT
--- NOTE | ~2024-11-27 | US_ITS ---
EXAMINATION: US SUPERIOR MESENTERIC ARTERY WITH DOPPLER CLINICAL INFORMATION: Abdominal pain. COMPARISON: None available. TECHNIQUE: Ultrasound along with color Doppler imaging and spectral analysis was performed of the superior mesenteric artery, abdominal aorta proximal and distal to the origin of the superior mesenteric artery, celiac trunk, hepatic artery and splenic artery.. FINDINGS: Abdominal aorta peak systolic velocity as follow: Proximal to SMA: 45 cm/s. Distal to estimate: 35 cm/s. SMA peak systolic velocities as follow: Proximal segment: 378 cm/s. Midsegment: 201 cm/s. Mesenteric/ aortic ratio: 8.4. Splenic artery peak systolic velocity: 201 cm/s. Hepatic artery peak systolic velocity: 121 cm/s. US/US SMA IMPRESSION: Hemodynamically high degree stenosis, SMA. Positive exam. Electronically signed by: Douglas Lundberg MD 11/29/2024 10:57 AM EDT
--- NOTE | ~2024-11-27 | XR_ITS ---
EXAMINATION: XR CHEST CLINICAL INFORMATION: check NGT placement COMPARISON: 11/27/2024 TECHNIQUE: Frontal view of the chest was obtained. FINDINGS: An NG tube is been placed since the prior examination. The distal end of the tube is not on the x-ray. Side port appears to be in the stomach. There is increased opacity in the right lower lung and stable right pleural scarring/effusion. There is increasing linear density in the left lung base contacting the hemidiaphragm just lateral to the apex. No other changes are noted. XR/XR chest 1V IMPRESSION: Well positioned NG tube, although the tip is not seen, the side-port is visible in the region of the upper stomach body. Increasing density in the right lung base could be related to increasing atelectasis or pneumonia. Stable blunting of the right costophrenic angle. Increasing linear density in the left lung base probably represents increasing atelectasis, but a developing pneumonia is not ruled out. Electronically signed by: Braulio Ordoñez MD 11/28/2024 05:09 PM EDT
--- NOTE | ~2024-11-27 | XR_ITS ---
CLINICAL HISTORY: Vomiting 1 view abdomen Comparison: CT/SR - CT ABDOMEN PELVIS WO IV CON - 05/01/24 19:07 EST Findings: Dilated loops of proximal and mid small bowel consider distal small bowel obstruction.Air is noted in the colon. No pneumoperitoneum or pneumatosis. No urinary tract calculi are present. No organomegaly. No acute fracture. Osteopenia. Impression: 1. Possible distal small bowel obstruction pattern. Equivocal mural thickening of the small bowel. Correlate with CT of the abdomen and pelvis with IV contrast. This document has been electronically signed by: Mor Cantrell MD on 12/01/2024 10:43:35
--- NOTE | ~2024-11-27 | CT_ITS ---
EXAMINATION: CT ABDOMEN AND PELVIS WITHOUT CONTRAST CLINICAL INFORMATION: Abdominal pain. COMPARISON: 05/01/2024. TECHNIQUE: Multidetector volumetric imaging was performed from the superior aspect of the liver through the pubic symphysis. Sagittal and coronal reformatted images were obtained on the technologist's workstation. This CT examination was performed using dose optimization techniques as appropriate, variously including the following: *Automated exposure control *Adjustment of mA and/or kV according to patient size (this includes techniques or standardized protocols for targeted exams where dose is matched to indication/reason for exam; i.e. extremities or head) *Use of iterative reconstruction technique FINDINGS: LUNG BASES: Moderate cardiomegaly. Heavy coronary calcifications. No pericardial effusion. Small layering right pleural effusion, appears chronic, with associated right lower lobe consolidative component with air bronchograms and peripheral calcification suggestive of round atelectasis. Associated pleural thickening on the right unchanged from priors, presumably chronic. Right middle lobe subsegmental consolidative opacity, likely atelectasis or scarring. Reticular lines in the left lung base, likely scarring. LIVER, GALLBLADDER, AND BILIARY TREE: The unenhanced liver is normal in size, shape, and attenuation. Diffuse arterial calcifications. No focal hepatic lesion or biliary ductal dilatation is present. Nodular contour suggestive of underlying cirrhosis. The gallbladder is distended with no evidence of radiopaque gallstones, gallbladder wall thickening, or obvious pericholecystic inflammatory changes. PANCREAS: Unenhanced pancreas appears normal although there are diffuse arterial vascular calcifications. SPLEEN: Normal. Arterial vascular calcifications in the hilum. ADRENAL GLANDS: Mild left hyperplasia. The right is normal. KIDNEYS AND URETERS: The unenhanced kidneys are normal in size, shape, and attenuation. No hydronephrosis, hydroureter, or calculi seen. No perinephric stranding. Diffuse vascular calcifications in the hilar regions. Bilateral mild perirenal stranding, nonspecific. BLADDER: Near completely collapsed, limiting evaluation for wall thickening. GASTROINTESTINAL TRACT: Mild wall thickening of the distal gastric body and antrum suggesting changes of gastritis. Mild small bowel dilatation diffusely, without focal transition point, findings which are nonspecific. Suggestion of some mild wall thickening of a distal segment of ileum. Focal enteritis is a possibility. No CT evidence of appendicitis. Normal appendix. The colon is normal in caliber and course. No wall thickening or inflammatory change evident. Mild sigmoid muscularis hypertrophy. No rectal abnormality. ABDOMINAL WALL: Severe bilateral male gynecomastia. Mild anasarca. LYMPH NODES: No abnormal lymphadenopathy. VASCULAR: Severe, diffuse arterial calcification throughout the abdomen and pelvis. No aortic aneurysm. PELVIC VISCERA: Prostate enlargement measuring up to 5.0 cm diameter. OSSEOUS STRUCTURES: No suspicious lytic or blastic bone lesions. Mild to moderate degenerative spinal changes present. Mild bilateral hip joint degenerative changes. Degenerative changes of the SI joints right greater than left, with partial ankylosis on the right. CT/CT abdomen pelvis wo IV con IMPRESSION: 1. Predominant abnormality is mild diffuse dilatation of the small bowel, with a short segment of suspected distal small bowel wall thickening suggesting enteritis. Consider infectious and/or inflammatory or ischemic etiology. Low-grade small bowel obstruction is not excluded. 2. Moderate cardiomegaly. Chronic right lung base consolidation with chronic small effusion present. This may be on the basis of cicatrization atelectasis. 3. Mild wall thickening of the distal body and antrum of the stomach. Gastritis is favored. 4. Cirrhotic morphology of the liver. No definite suspicious liver lesion on this noncontrast exam. 5. Severe calcific atheromatous disease of the arterial structures. No aneurysm. 6. Numerous ancillary findings as discussed in the body of the report. Electronically signed by: Morro Van MD 11/28/2024 02:10 PM EDT
--- NOTE | ~2024-11-27 | CT_ITS ---
CLINICAL HISTORY: concern of bowel obstruction CT ABDOMEN AND PELVIS WITHOUT CONTRAST Comparison: CT/MA/SR - CT ABDOMEN PELVIS WITHOUT IV CONTRAST - 11/28/24 13:34 EDT Findings: Persistent loculated appearing small right pleural effusion with subpleural consolidation and/or rounded atelectasis in the right middle and lower lobes. Increasing atelectasis and/or infiltrates in the left lower lobe. Cardiomegaly. Cirrhotic liver morphology. Normal spleen size. No peripancreatic edema or fluid collection. No large calcified gallstone. No adrenal mass. No hydronephrosis. Nonspecific bilateral perinephric edema. Extensive aortic and arterial calcifications. No AAA. Progressive air and fluid distention of multiple small bowel loops. Exact point of transition is difficult to identify however there are multiple decompressed central and right-sided small bowel loops. New mild abdominal ascites. New diffuse mesenteric edema. No free air or pneumatosis. Multiple diverticula in the sigmoid colon with persistent diffuse wall thickening. Diffuse body wall edema. The appendix is identified. No acute appendicitis. Nonspecific hyperdense intraluminal contents. Redemonstration of prostatomegaly. New mild pelvic ascites. Diffuse wall thickening in the urinary bladder which is poorly distended. The bones are intact. IMPRESSION: 1. Small-bowel obstruction. Transition point is not definitively identified. No perforation or ischemia. 2. Mild abdominal and pelvic ascites with diffuse mesenteric edema. 3. Sigmoid diverticulosis. Wall thickening likely hypertrophy in the setting of chronic diverticulitis. 4. Liver cirrhosis. Anasarca. 5. Additional findings as above. This document has been electronically signed by: Mily Cornejo DO on 12/01/2024 15:59:28
--- NOTE | ~2024-11-27 | US_ITS ---
EXAMINATION: Noninvasive assessment of the left lower extremity with ARTERIAL DUPLEX, ANKLE BRACHIAL INDICES (ABIs), and PULSE VOLUME RECORDINGS (PVRs). CLINICAL INFORMATION: Status post above-knee amputation the right lower extremity. Nonhealing ulcer. TECHNIQUE: Duplex Doppler techniques with waveform analysis and measurement of velocities in the left common femoral, profunda femoris, superficial femoral, popliteal and tibial arteries were performed. Additionally, ankle pulse volume recordings, ankle pressure measurements and ankle brachial indices were obtained of the lower extremity arterial system left lower extremity. The study was performed only at rest. COMPARISON: None FINDINGS: DIRECT DUPLEX DOPPLER FINDINGS: LEFT LEG: Common femoral artery: 94 cm/s, phasicity: Biphasic/triphasic. Profunda femoris artery: 50 cm/s, phasicity: Biphasic. Spectral broadening. Superficial femoral artery (proximal): 58 cm/s, phasicity: Monophasic. Superficial femoral artery (mid): 54 cm/s, phasicity: Monophasic. Spectral broadening. Superficial femoral artery (distal): 70 cm/s, phasicity: Monophasic. Spectral broadening. Popliteal artery: 64 cm/s, phasicity: Monophasic. Spectral broadening. Posterior tibial artery: 102 cm/s, phasicity: Monophasic. Spectral broadening. Peroneal artery: No color Doppler flow. Anterior tibial artery: 42 cm/s, phasicity: Monophasic. Spectral broadening. Dorsalis pedis artery: 36 cm/s, phasicity: Monophasic. Spectral broadening. BRACHIAL PRESSURES: Right: 172 Left: 154 ANKLE PRESSURES: Left: PT more than 200, DP more than 200 ANKLE-BRACHIAL INDEX: Left: No recorded ANKLE PVR WAVEFORMS: Left: Abnormal US/US STACEY complete IMPRESSION: Left leg: Severe inflow disease throughout the interrogated arteries. Questionable occluded left peroneal artery. STACEY Reference: - >1.4 = calcified vessels - 0.9 - 1.4 = normal - no significant arterial disease - 0.7 - 0.89 = mild peripheral arterial disease - 0.51 - 0.69 = moderate peripheral arterial disease - 0.50 = severe peripheral arterial disease - < .30 = critical arterial disease Electronically signed by: Douglas Lundberg MD 11/29/2024 11:49 AM EDT
--- NOTE | ~2024-11-27 | XR_ITS ---
EXAMINATION: CR Xr Acute Abdomen Series CLINICAL INDICATION: vomiting COMPARISON: CT abdomen and pelvis May 01, 2024 TECHNIQUE: 2 views of the abdomen. AP chest x-ray FINDINGS: Chest x-ray: Again demonstrated is cardiomegaly. There is mild fullness of pulmonary vascularity. There is stable chronic blunting of the right costophrenic angle. Right IJ central line terminates in the right atrium. Abdomen demonstrates extensive vascular calcifications. There is small and large bowel gas without air-fluid levels or gross distention. XR/XR acute abdomen series IMPRESSION: Cardiomegaly with stable right basilar effusion/scarring. Right IJ central line terminates in the right atrium. Nonspecific bowel gas pattern. Extensive vascular calcifications. Electronically signed by: Braulio Ordoñez MD 11/27/2024 01:45 PM EDT
--- NOTE | ~2024-11-27 | XR_ITS ---
EXAMINATION: XR FOOT, LEFT CLINICAL INFORMATION: worsening infx, chad 2nd toe COMPARISON: None available. TECHNIQUE: AP, lateral, and oblique views of the left foot. FINDINGS: There is diffuse profound osteopenia, limiting sensitivity for subtle changes. There is no fracture, dislocation, or suspicious bone lesion. There has been amputation of the hallux at the level of the proximal metaphysis of the distal phalanx. There is normal alignment. There is no region of permeative bony change to suggest radiographic changes of osteomyelitis. Joint spaces appear largely preserved. Soft tissues demonstrate extensive vascular calcification. XR/XR foot LT min 3V IMPRESSION: 1. No definite acute bony findings of the left foot. Specifically, no radiographic evidence of osteomyelitis. 2. Extensive osteopenia. 3. Prior amputation of the hallux at the level of the proximal metaphysis of the distal phalanx. 4. Extensive vascular calcifications. Electronically signed by: Morro Van MD 11/27/2024 01:44 PM EDT
--- NOTE | ~2024-11-27 | FL_ITS ---
EXAMINATION: FL SMALL BOWEL SERIES CLINICAL INFORMATION: SBO, continued nausea and vomiting COMPARISON: None available. TECHNIQUE: Following a septic tank installer image of the abdomen, 50/50 diluted Gastrografin contrast was administered orally, and interval abdominal radiographs were performed to assess for contrast progression through the small bowel. No spot images obtained.. FINDINGS: Rehabilitation Services Counselor image of the abdomen demonstrates small bowel obstructive pattern. Following oral administration of dilated gas grafting the stomach is distended with contrast. There are multiple mildly dilated small bowel loops opacified with oral contrast. No small bowel thickening seen. At 120 minutes oral contrast is visualized within the colon and the rectum consistent with patent GI tract. FLUOROSCOPY TIME: None DOSE AREA PRODUCT: None uGy-m2 (microgray-meter squared) FL/FL small bowel follow through IMPRESSION: Mildly dilated multiple small bowel loops essentially jejunal and proximal radial loops. There is normal passage of small bowel forms a distended stomach prominent small bowel loops into the colon and rectum. The findings are suspicious for ileus nonspecific small bowel ileus. No site of obstruction seen. Electronically signed by: Sai Perez MD 12/02/2024 04:18 PM EDT
--- NOTE | ~2024-11-27 | CT_ITS ---
CLINICAL HISTORY: Abdominal distention, altered mental status CT abdomen and pelvis without contrast Comparison: CT/SR - CT ABDOMEN PELVIS WO IV CON - 12/01/24 13:33 EDT Findings: Redemonstration of right lower lobe consolidation and layering effusion. Calcified pleural plaque likely reflects prior asbestos exposure. The heart is enlarged. Liver has a nodular contour, cirrhotic change. Gallstones in the dependent gallbladder. Pancreas, spleen and adrenal glands are within normal limits. The kidneys are non hydronephrotic. Central mesenteric fat stranding is present with contained extraluminal gas in the adjacent mesentery ( axial series 6, image 54 ). Inflammatory changes are associated with a dilated fluid-filled loop of bowel measuring up to 4.3 cm. Fluid in the distal large bowel suggesting abnormal motility. Extensive atherosclerotic vascular calcifications are present. Pelvic contents unremarkable. Normal appendix. No acute fracture. IMPRESSION: Redemonstration of small-bowel obstruction. Contained extraluminal gas in the adjacent mesentery with associated mesenteric edema. Finding may reflect contained perforation versus mesenteric venous gas concerning for ischemic bowel. Please correlate clinically. Stable ancillary CT findings detailed above. This document has been electronically signed by: Richard Brown MD, PHD on 12/08/2024 03:13:41
--- NOTE | ~2024-11-27 | US_ITS ---
EXAMINATION: Noninvasive assessment of the left lower extremity with ARTERIAL DUPLEX, ANKLE BRACHIAL INDICES (ABIs), and PULSE VOLUME RECORDINGS (PVRs). CLINICAL INFORMATION: Status post above-knee amputation the right lower extremity. Nonhealing ulcer. TECHNIQUE: Duplex Doppler techniques with waveform analysis and measurement of velocities in the left common femoral, profunda femoris, superficial femoral, popliteal and tibial arteries were performed. Additionally, ankle pulse volume recordings, ankle pressure measurements and ankle brachial indices were obtained of the lower extremity arterial system left lower extremity. The study was performed only at rest. COMPARISON: None FINDINGS: DIRECT DUPLEX DOPPLER FINDINGS: LEFT LEG: Common femoral artery: 94 cm/s, phasicity: Biphasic/triphasic. Profunda femoris artery: 50 cm/s, phasicity: Biphasic. Spectral broadening. Superficial femoral artery (proximal): 58 cm/s, phasicity: Monophasic. Superficial femoral artery (mid): 54 cm/s, phasicity: Monophasic. Spectral broadening. Superficial femoral artery (distal): 70 cm/s, phasicity: Monophasic. Spectral broadening. Popliteal artery: 64 cm/s, phasicity: Monophasic. Spectral broadening. Posterior tibial artery: 102 cm/s, phasicity: Monophasic. Spectral broadening. Peroneal artery: No color Doppler flow. Anterior tibial artery: 42 cm/s, phasicity: Monophasic. Spectral broadening. Dorsalis pedis artery: 36 cm/s, phasicity: Monophasic. Spectral broadening. BRACHIAL PRESSURES: Right: 172 Left: 154 ANKLE PRESSURES: Left: PT more than 200, DP more than 200 ANKLE-BRACHIAL INDEX: Left: No recorded ANKLE PVR WAVEFORMS: Left: Abnormal US/US arterial duplex LE LT IMPRESSION: Left leg: Severe inflow disease throughout the interrogated arteries. Questionable occluded left peroneal artery. STACEY Reference: - >1.4 = calcified vessels - 0.9 - 1.4 = normal - no significant arterial disease - 0.7 - 0.89 = mild peripheral arterial disease - 0.51 - 0.69 = moderate peripheral arterial disease - 0.50 = severe peripheral arterial disease - < .30 = critical arterial disease Electronically signed by: Douglas Lundberg MD 11/29/2024 11:49 AM EDT
--- NOTE | ~2024-11-27 | CT_ITS ---
CLINICAL HISTORY: Lethargy CT head without contrast Comparison: CT/SR - CT HEAD WITHOUT IV CONTRAST - 09/17/24 08:58 EDT Findings: No intra-axial mass, midline shift, hydrocephalus, or acute hemorrhage. Nonspecific white matter hypodensity with mild volume loss. The visualized paranasal sinuses and mastoid air cells are normal. The orbits are within normal limits. There is no acute fracture. IMPRESSION: 1. No acute intracranial findings. This document has been electronically signed by: Richard Brown MD, PHD on 12/08/2024 03:11:00
[2024-11-27 11:06] VITALS: BP 126/70; PULSE 78; RESP 18; TEMP 37; O2SAT 96; BMI 25.0
--- NOTE | 2024-11-27 11:06 | ED_ITS ---
HPI - General Adult General Chief complaint: Extremity Problem Stated complaint: legs are turning black, painful Time Seen by Provider: 11/27/24 11:46 History of Present Illness ED Provider: Evan HILL narrative: The patient is a 69-year-old male with a history of type 2 diabetes and chronic renal failure on dialysis. He has had a chronic infection to his left great toe. He has been seeing Dr. Cannon of vascular surgery. He was last seen in the office 2 weeks ago on November 12 with the plan for noninvasive vascular studies. However over the last 2 days he has had worsening pain in the foot and his son feels that the 2nd toe was looking infected. There has been no fever. There has been vomiting. The patient is a dialysis patient. He had dialysis earlier this morning and then came to the emergency room after dialysis. The patient had a new dialysis catheter placed yesterday. This is in his right upper chest. Apparently this replaced a dialysis catheter in the same location. The procedure was done at [facility]. Related Data Home Medications ?Medication ?Instructions ?Recorded ?Confirmed allopurinol 100 mg tablet 100 mg PO MOWEFR 04/19/22 doxazosin 4 mg tablet 4 mg PO BEDTIME 04/19/22 omeprazole 20 mg capsule,delayed 20 mg PO DAILY@0630 0 04/19/22 08/22/24 release pregabalin 75 mg capsule 75 mg PO DAILY 06/20/2308/04 aspirin 81 mg tablet,delayed 81 mg PO DAILY 04/05/24 0 08/22/24 release fluticasone fur. 100 mcg-umeclid 1 inh inhalation FELICIA Y 04/05/24 08/22/24 62.5 mcg-vilant 25 mcg inhalat.powder (Trelegy Ellipta) losartan 25 mg tablet 25 mg PO DAILY 04/05/2408/04 insulin glargine 100 unit/mL (3 22 unit subcut BEDTIME 05/01/24 08/22/24 mL) subcutaneous pen (Lantus Solostar U-100 Insulin) amlodipine 10 mg tablet 10 mg PO DAILY 05/26/2408/04 calcium carbonate (Calcium 500) 500 mg PO TID 05/26/24 08/22/24 docusate sodium 100 mg capsule 100 mg PO DAILY 5 08/22/24 insulin lispro 100 unit/mL See Rx Instructions .Route .COMPLEX 05/26/24 08/22/24 subcutaneous solution (Humalog U-100 Insulin) albuterol sulfate 90 mcg/actuation 2 puff inhalation Q 4H PRN wheezing 08/22/24 08/22/24 aerosol inhaler (Ventolin HFA) carvedilol 6.25 mg tablet 6.25 mg PO BID 08/22/2408/04 ipratropium 0.5 mg-albuterol 3 mg 3 ml inhalation QID PRN Shortness 08/22/24 08/22/24 (2.5 mg base)/3 mL nebulization Of Breath soln sucroferric oxyhydroxide 500 mg 500 mg PO TIDWM 08/22/24 chewable tablet (Velphoro) Previous Rx's ?Medication ?Instructions ?Recorded PleurX catheter drainage kits #10 ea 10/17/23 collagenase clostridium histo. 250 1 appl topical FELICIA Y #90 grams 09/21/24 unit/gram topical ointment (Santyl) levetiracetam 1,000 mg tablet 1,000 mg PO BID #60 tabs 09/21/24 oxycodone 5 mg tablet 5 mg PO Q4H PRN Pain, Severe (Pain 09/21/24 Scale 7-10) #18 tabs sodium zirconium cyclosilicate 5 5 g PO DAILY #30 ea 0 09/21/24 gram oral powder packet (Lokelma) Allergies Allergy/AdvReac Type Severity Reaction Status Date / Time Iodinated Contrast Media Allergy Severe Facial Verified 11/27/24 11:09 (Contrast Dye) Swelling hydralazine AdvReac Severe vasculitis Verified 11/27/24 11:09 Review of Systems 2 Review of Systems: Yes all other systems are reviewed and are negative [facility] Past Medical History Medical History Gangrene of hand Above knee amputation of right lower extremity Left ventricular systolic dysfunction (LVSD) PVD (peripheral vascular disease) Postop check Acute pericardial effusion Right sided weakness Dehiscence of wound Peripheral arterial disease Dry gangrene Cellulitis of right foot HFrEF (heart failure with reduced ejection fraction) Chronic combined systolic and diastolic CHF (congestive heart failure) Chronic pericardial effusion Arthritis Asthma Restless leg syndrome Acute on chronic systolic and diastolic heart failure, NYHA class 3 Anemia Occlusive thrombus Pulmonary edema ROBERT (obstructive sleep apnea) Type 2 diabetes mellitus Hyperlipidemia Hypertension A-V fistula ESRD on dialysis Falling Surgical History Status post creation of pericardial window Hx of right BKA History of transmetatarsal amputation of foot Status post transmetatarsal amputation of right foot Postop check History of surgery H/O colonoscopy Recurrent pleural effusion Pleural effusion on right (07/13/23) Family History Family History Father No problems noted. Mother No problems noted. Social History Social History Household Members: Family Household Members Other:: son Housing: House Are you a primary health care liaison to a significant other at home: No Do you presently have visiting nurse or other home services: No Alcohol intake: former Comment: 1:1 for SI Patient Tobacco Use Status: Former Tobacco user Tobacco use type: Cigarette Smoked in Last 30 Days: No Second Hand Smoke Exposure: No Use of substances other than those prescribed or required for medical reasons: No Advance Directives: Yes Advance Directives on File: Yes Advance Directives Date on File: 10/04/23 service: No Current occupational status: disabled 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 He does not look acutely toxic however. HENMT Other: The face is symmetrical. ?Mucous membranes moist. Eyes Other: Pupils are round equal, conjunctivae are clear, extraocular movements intact Neck Neck: Yes normal visual inspection, Yes full ROM and Yes no JVD Resp Effort & Inspection: normal respiratory effort Auscultation: clear to auscultation bilaterally Cardio Other: No murmur heard Rate: regular rate Rhythm: regular rhythm Heart sounds: S1 normal heart sound present and S2 normal heart sound present GI Other: No pronounced abdominal distention or tenderness. Skin Other: The patient has a blackened stump of his left great toe. The skin at the base of the toe is somewhat erythematous. There is some mild swelling to the adjacent left 2nd toe with a very small area of blackness at the tip of the toe and some mild erythema to the toe itself. Neuro Other: The patient is awake and alert with a normal mental status. Cranial nerves are grossly intact. He seems to move his extremities symmetrically and appropriately. Extrem Other: Patient has a blackened stump of a left great toe. The 2nd toe is somewhat swollen and erythematous with a black and spot of the tip of the toe. Please see pictures above. The foot feels well-perfused. There is a dressing on the left calf which I have not taken down. The patient has amputated fingers of the right hand with a dressing on the hand. Course Course Course Narrative: This is a rapid medical exam performed by Jessica Gee NP: Additional HPI, ROS, PE not included below will be deferred to primary provider. Patient is a 69y/o Citizen [place] speaking male pmhx ESRD requiring dialysis, T2DM, HF class 3, PVD referred to the ED for evaluation of left toe necrosis, is already supposed to have amputation. Complains of severe pain. Great toe is black. Had full dialysis treatment today. Plan: labs Medications Administered Discontinued Medications Generic Name Dose Route Start Last Admin Trade Name Freq PRN Reason Stop Dose Admin Piperacillin Sod/Tazobactam 100 mls @ 200 mls/hr 11/27/24 12:58 11/27/24 14:17 Sod 4.5 gm/ Sodium Chloride IV 11/27/24 13:27 Infused ONCE ONE Infusion Vancomycin HCl 1,000 mg/ 535 mls @ 267.5 mls/hr 11/27/24 12:58 11/27/24 14:17 Vancomycin HCl 750 mg/ Sodium IV 11/27/24 14:57 267.5 mls/hr Chloride ONCE ONE Administration Morphine Sulfate 4 mg 11/27/24 12:08 11/27/24 12:31 Morphine Sulfate 4 Mg/Ml Cartridge IVPUSH 11/27/24 12:09 4 mg ONCE ONE Administration Protocol Morphine Sulfate 4 mg 11/27/24 14:37 11/27/24 14:46 Morphine Sulfate 4 Mg/Ml Cartridge IVPUSH 11/27/24 14:38 4 mg ONCE ONE Administration Protocol Ondansetron HCl 4 mg 11/27/24 12:08 11/27/24 12:32 Ondansetron Hcl 4 Mg/2 Ml Vial IVPUSH 11/27/24 12:09 4 mg ONCE ONE Administration Medical Decision Making Medical Decision Making [facility] Narrative: The patient is a 69-year-old male with multiple medical problems including type 2 diabetes and chronic renal failure on dialysis who presents with a worsening of a chronic left foot wound. I think he has an acute cellulitis on top of a chronically necrotic stump of a left great toe. He has a white count elevation of 16,000 and a rise in his sed rate and his CRP. No definite osteomyelitis seen on plain films. There was also a complaint of vomiting at home. An abdominal series was done that shows no acute findings to suggest a bowel obstruction. The patient was started on broad-spectrum antibiotics for the left foot infection with piperacillin/tazobactam and vancomycin. He will be admitted to the hospitalist service. He was given morphine for pain. Lab Data 11/27/24 12:20 11/27/24 12:20 Labs: Lab Results 11/27/24 Range/Units 12:20 WBC 16.2 H (4.8-10.8) X10*3/uL RBC 4.15 L (4.60-5.80) X10*6/uL Hgb 9.5 L (14.0-18.0) g/dl Hct 30.7 L (42.0-52.0) % MCV 74.0 L (80.0-98.0) fL MCH 22.9 L (27.0-33.0) pg MCHC 30.9 L (31.0-36.0) g/dl RDW 17.5 H (11.0-16.0) % Plt Count 224 (160-400) X10*3/uL MPV 10.4 (9.4-12.4) fL Immature Gran % (Auto) 1.0 H (0.0-0.4) % Neut % (Auto) 86.0 H (45-73) % Lymph % (Auto) 7.2 L (20-40) % [place] % (Auto) 5.2 (2-11) % Eos % (Auto) 0.4 (0-4) % Baso % (Auto) 0.2 (0-2) % Lymph # (Auto) 1.2 (1.2-4.9) X10*3/uL [place] # (Auto) 0.8 (0.1-1.2) X10*3/uL Eos # (Auto) 0.1 (0.0-0.4) X10*3/uL Baso # (Auto) 0.0 (0.0-0.2) X10*3/uL Abs Immat Gran (auto) 0.16 H (0.00-0.03) X10*3/uL Absolute Neuts (auto) 14.0 H (2.0-8.3) x10*3/uL Absolute Nucleated RBC 0.070 H (0.0-0.012) X10*3/uL Nucleated RBC % (auto) 0.4 H (0.0-0.2) /100WBC ESR 45 H (0-15) MM/HR Sodium 138 (135-145) mmol/L Potassium 3.8 D (3.3-5.1) mmol/L Chloride 100 (96-108) mmol/L Carbon Dioxide 27 (22-29) mmol/L Anion Gap 15 (12-20) BUN 34 H (9-16) mg/dL Creatinine 5.39 H* (0.5-1.4) mg/dL Estim Creat Clear Calc 11.4 Estimated GFR 11 Random Glucose 165 H (60-115) mg/dL Lactic Acid 1.7 (0.5-2.0) mmol/L Calcium 8.7 (8.4-10.2) mg/dL Total Bilirubin 0.3 (0.0-1.0) mg/dL AST 16 (5-37) U/L ALT < 6 (0-40) U/L Alkaline Phosphatase 122 H (39-117) U/L C-Reactive Protein 14.79 H (< or = 0.50) mg/dL Total Protein 6.8 (6.5-8.0) g/dL Albumin 3.4 L (3.5-5.0) g/dL Discharge Plan Discharge Clinical Impression: Diabetic infection of left foot Patient Disposition: Admitted As Inpatient Interventions: Admission Worksheet (ED) Last Done: 11/27/24 15:38 Discharge Date/Time: 11/27/24 16:15
[2024-11-27 11:18] VITALS: BP 126/70; PULSE 78; RESP 18; TEMP 37; O2SAT 96
--- NOTE | 2024-11-27 11:50 | PC.NURSE ---
69 M here for L big toe pain/L foot pain, ongoing. Pt has a necrotic L big toe, toe next to it started turning black as well, ran out of pain medication, awaiting surgery for removal. Pt sts 10/10 pain in Left foot. Pt had a total R leg amputation, R fingers amputed leaving only the thumb. Pt is a dialysis patient. A+Ox4, calm, cooperative. Pt uses a wheelchair to get around.
--- NOTE | 2024-11-27 12:09 | ECG_ITS ---
Test Reason : EXTREMITY Blood Pressure : */* mmHG Vent. Rate : 78 BPM Atrial Rate : 78 BPM P-R Int : 154 ms QRS Dur : 106 ms QT Int : 418 ms P-R-T Axes : 4 -36 140 degrees QTcB Int : 476 ms Sinus rhythm with Premature supraventricular complexes Left axis deviation Left ventricular hypertrophy with repolarization abnormality ( R in aVL , [place] product ) Cannot rule out Septal infarct , age undetermined Abnormal ECG When compared with ECG of 18-Sep-2024 07:42, Premature supraventricular complexes are now Present ST now depressed in Lateral leads QT has lengthened Referred By: Yasir Gordon Electronically Signed By: Tim Lan
[2024-11-27 12:28] LABS: MANUAL DIFF FLAG NO
[2024-11-27 12:39] LABS: Hematocrit 30.7 % (42.0-52.0); Hemoglobin 9.5 g/dl (14.0-18.0); Imm Gran Abs Auto 0.16 X10*3/uL (0.00-0.03); Imm Gran Pct Auto 1.0 % (0.0-0.4); Lymphocytes Absolute Auto 1.2 X10*3/uL (1.2-4.9); Mean Corpuscular HGB Conc 30.9 g/dl (31.0-36.0); Mean Corpuscular Hemoglobin 22.9 pg (27.0-33.0); Mean Corpuscular Volume 74.0 fL (80.0-98.0); NRBC Abs Auto 0.070 X10*3/uL (0.0-0.012); NRBC Pct Auto 0.4 /100WBC (0.0-0.2); Platelet Count 224 X10*3/uL (160-400); Red Blood Count 4.15 X10*6/uL (4.60-5.80); White Blood Count 16.2 X10*3/uL (4.8-10.8)
[2024-11-27 12:46] LABS: Alanine Aminotransferase < 6 U/L (0-40); Albumin Level 3.4 g/dL (3.5-5.0); Alkaline Phosphatase 122 U/L (39-117); Anion Gap 15 (12-20); Aspartate Amino Transferase 16 U/L (5-37); Blood Urea Nitrogen 34 mg/dL (9-16); Calcium 8.7 mg/dL (8.4-10.2); Carbon Dioxide 27 mmol/L (22-29); Chloride 100 mmol/L (96-108); Potassium 3.8 mmol/L (3.3-5.1); Sodium 138 mmol/L (135-145); Total Protein 6.8 g/dL (6.5-8.0)
[2024-11-27 12:48] LABS: Creatinine Clr Calc Pharmacy 11.4; Estimated Glomerular Filt Rate 11
[2024-11-27 12:49] VITALS: BP 157/81; PULSE 77; RESP 17; O2SAT 97
--- NOTE | 2024-11-27 13:36 | PC.NURSE ---
delay in the abx because the pt was in cat scan
[2024-11-27] MEDS: vancomycin HCL 1,000 MG, vancomycin HCL 750 MG in 0.9 % Sodium Chloride 500 ML 267.5 MG IV (14:17)
--- OUTSIDE RECORDS SUMMARY | 2024-11-27 14:35 | XMS_ITS | Clinical Summary ---
Author Organization [facility] Address [address] [place] [address] Care Team Providers Care Rickshaw Driver Name Role Phone Lainey Cody ESTUARDO Primary Care Provider [phone] Source Comments PLEASE NOTE, if this patient is a minor, it may be UNLAWFUL to discuss sensitive information that is contained in these records (such as FAMILY PLANNING, MENTAL HEALTH or SUBSTANCE ABUSE) with the minor patient's parent or other person without the patient's specific authorization.[facility] Allergies No known active allergies Medications nebulizer accessoriesIndi cations:Chronic bronchitis, unspecified chronic bronchitis type ([facility]) Use as needed for cough, wheeze, SOB. Lifetime need. Dx: J42 1 Device 0 016 Active caneIndications :Osteomyelitis of other site, unspecified type ([facility] & [facility]) Use daily as needed. Lifetime need. M86.9 [...] disease, with long-term current use of insulin ([facility]) Use to test BG with Freestyle Radha when prompted 1-2X/D UD Dx. E11.22 Freestyle Chuck Strips 100 Each Active compress.stocki ng,knee,reg,med Indications:Sta ge 5 chronic kidney disease not on chronic dialysis ([facility]),Periph eral edema Compression stockings 20-30 mmHg, Lifetime need. Wear daily as needed for swelling in legs. 2 Each 2 Active TRELEGY ELLIPTA 200-62.5-25 mcg dsdv INHALE 1 PUFF BY MOUTH ONCE DAILY. use at the same time every day Active VELPHORO 500 mg chew TAKE 1 TABLET BY MOUTH 3 (THREE) TIMES A DAY Active ACETAMINOPHEN 500 mg tabletIndicatio ns:Chronic midline low back pain without sciatica TAKE 1 TABLET BY MOUTH EVERY 4 HOURS NEEDED 120 Tablet Active MISCELLANEOUS MEDICAL SUPPLY MISCIndications :Wound of left upper extremity, sequela Xeroform; change bandage to finger wound once daily. 6 month need. 30 Each Active insulin lispro 100 unit/mL injection pen BS <149 0 units, 150-199 2 units, 200-249 4 units, 250-299 6 units, 300-359 8 units, 350-399 10 units > 400 call PCP. TDD 30 units. 15 mL Active atorvastatin (LIPITOR) 40 mg tabletIndicatio ns:Type 2 diabetes mellitus with complication, with long-term current use of insulin ([facility]) TAKE 1 TABLET BY MOUTH ONCE DAILY 30 Tablet Active pen needle, diabetic (COMFORT EZ PEN NEEDLES) 32 gauge x 32 ndleIndications :Type 2 diabetes mellitus with stage 4 chronic kidney disease, with long-term current use of insulin ([facility]) USE TO INJECT insulin 4 (FOUR) TIMES DAILY 150 Each Active FREESTYLE RADHA 2 SENSOR kitIndications: Type 2 diabetes mellitus with stage 4 chronic kidney disease, with long-term current use of insulin ([facility]) USE DIRECTED. replace EVERY 14 DAYS 2 Kit Active aspirin [address] tablet TAKE 1 TABLET BY MOUTH ONCE DAILY 30 Tablet 11 024 Active nebulizer and compressorIndic ations:Chronic obstructive pulmonary disease, unspecified COPD type ([facility]) Order nebulizer machine and supplies, Use as needed for cough, wheeze, SOB. Lifetime need. 1 Each 024 Active SENNA PLUS 8.6-50 mg per tabletIndicatio ns:Chronic idiopathic constipation TAKE 1 TABLET BY MOUTH ONCE DAILY NEEDED FOR CONSTIPATION 90 Tablet 024 Active MISCELLANEOUS MEDICAL SUPPLY MISCIndications :Gangrene of toe of right foot ([facility]),Diffic ulty walking Crutch x99 years to use [...] RD (end stage renal disease) on dialysis ([facility]) Take 1 Tablet by mouth once daily (Refilled this time, but needs to see extrusion die coordinator for refill for this med) 30 Tablet 025 Active MISCELLANEOUS MEDICAL SUPPLY MISCIndications :Bilateral leg weakness,Chroni c bilateral low back pain with bilateral sciatica by miscellaneous route once daily Bedside Commode. Room level confined. Lifetime need. 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 1 Each 025 Active LANTUS SOLOSTAR U-100 INSULIN 100 unit/mL (3 mL) pen INJECT 22 UNITS SUBCUTANEOUSLY EVERY NIGHT AT BEDTIME 6 mL 4 025 Active ipratropium-alb uteroL (DUONEB) 0.5 mg-3 mg(2.5 mg base)/3 mL nebulizer solutionIndicat ions:Unspecifie d chronic bronchitis ([facility]) INHALE THE CONTENT OF 1 VIAL (3mls) VIA NEBULIZER 4 (FOUR) TIMES DAILY NEEDED 90 mL 5 025 Active pregabalin (LYRICA) 75 mg capsuleIndicati ons:Chronic bilateral low back pain with bilateral sciatica TAKE 1 CAPSULE BY MOUTH ONCE DAILY 30 Capsule 2 025 Active levETIRAcetam (KEPPRA) 1,000 mg tablet TAKE 1 TABLET ORALLY 2 TIMES A DAY Authorized by: JOSELIN SOSA. 025 Active LOKELMA 5 gram pwpk TAKE 1 PACKET MIXED DIRECTED BY MOUTH EVERY DAY Authorized by: JOSELIN SOSA. 025 Active SANTYL 250 unit/gram ointment APPLY TOPICALLY ONCE DAILYSource: Surescripts (Fill History, Ambulatory)Author ized by: JOSELIN SOSA. 025 Active MISCELLANEOUS MEDICAL SUPPLY MISCIndications :Diabetic gangrene ([facility]) Order gauze and dressing, use daily, need lifetime.. 30 Each 5 025 Active blood-glucose,r eceiver,cont (FREESTYLE RADHA 3 READER) miscIndications :Type 2 diabetes mellitus with diabetic nephropathy, with long-term current use of insulin ([facility]) Use to test blood glucose at least 3x daily (FreeStyle Radha 3 [place]). 1 Each 025 Active blood-glucose sensor (FREESTYLE RADHA 3 PLUS SENSOR) deviIndications :Type 2 diabetes mellitus with diabetic nephropathy, with long-term current use of insulin ([facility]) Apply 1 sensor to back of upper arm every 15 days. Use to continuously monitor glucose. ( FreeStyle Radha 3 Plus Sensor). 2 Each Active losartan (COZAAR) 25 mg tablet TAKE 1 TABLET BY MOUTH ONCE DAILY 30 Tablet 2 025 Active doxazosin (CARDURA) 4 mg tablet TAKE 1 TABLET BY MOUTH AT BEDTIME 30 Tablet 3 025 Active omeprazole (PRILOSEC) [address] capsuleIndicati ons:Epigastric abdominal pain TAKE 1 CAPSULE BY MOUTH EVERY MORNING BEFORE BREAKFAST 30 Capsule 5 025 Active VENTOLIN HFA 90 mcg/actuation inhaler INHALE 2 PUFFS BY MOUTH EVERY 4 HOURS NEEDED FOR SHORTNESS OF BREATH OR FOR WHEEZING 18 g 5 025 Active carvediloL (COREG) 6.25 mg tabletIndicatio ns:Essential hypertension Take 1 Tablet by mouth twice a day. 180 Tablet 1 025 Active alcohol swabs (ALCOHOL PADS)Indication s:Type 2 diabetes mellitus with stage 4 chronic kidney disease, with long-term current use of insulin ([facility]) USE UP TO 5 X ONCE DAILY 100 Each 025 Active oxyCODONE (ROXICODONE) 5 mg tabletIndicatio ns:Gangrene of toe of right foot ([facility]) Take 0.5-1 Tablets by mouth every 6 (six) hours as needed for pain. Max Daily Amount: 4 Tablets 24 Tablet 025 Active alcohol swabs (ALCOHOL PADS)Indication s:Type 2 diabetes mellitus with stage 4 chronic kidney disease, with long-term current use of insulin ([facility]) USE UP TO FIVE TIMES DAILY 100 Each 024 2024 Discontinued albuterol HFA 90 mcg/actuation inhaler INHALE 2 PUFF BY MOUTH EVERY 4 HOURS NEEDED FOR SHORTNESS OF BREATH OR FOR WHEEZING 8.5 g 5 024 2024 Discontinued omeprazole (PRILOSEC) [address] Teran ons:Epigastric abdominal pain TAKE 1 CAPSULE BY MOUTH EVERY MORNING BEFORE BREAKFAST 30 Capsule 5 024 2024 Discontinued doxazosin (CARDURA) 4 mg tablet TAKE 1 TABLET BY MOUTH EVERY NIGHT AT BEDTIME 30 Tablet 2 025 2024 Discontinued carvediloL (COREG) 6.25 mg tablet TAKE 1 TABLET BY MOUTH two (2) times a day take with food 90 Tablet 025 2024 Discontinued(R eorder (E-Cancel Not Sent)) losartan (COZAAR) 25 mg tablet Take 1 Tablet by mouth once daily. 30 Tablet 2 025 2024 Discontinued oxyCODONE (ROXICODONE) 5 mg tabletIndicatio ns:Gangrene of toe of right foot ([facility]) Take 0.5-1 Tablets by mouth every 6 (six) hours as needed for pain. 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 Referral to retina specialist. F/u 1 month Pleural effusion, right 06/29/2023 Overview (08/30/2023): 06/16/[address] Griggs. Recommends get records from [facility]; Coordinte for thoracentesis next week and do pleural fluid studies. Consider pulmonary rehab in the future. F/u 2-3 months. 08/25/23 F/u Dr Griggs. Pt is s/o Pleurx catheter and thoracentesis. Pleural effusion with unclear etiology. He is feeling much better re: dyspnea since fluid is off. Pleurx catheter can be removed. F/u 6 months. Cont Trelegy for asthma. Mild intermittent asthma without complication ([facility]) 03/31/2022 Overview (06/27/2022): 08/19/21 Eval at [facility] Pul. Increase Advair to 100/50 F/u 6 months. 05/24/22 Eval at [facility], Dr Cody. Recommends Trelegy once daily. Plan for sleep study to assess need for CPAP. Peripheral vascular disease ([facility] V24) 2022 Overview (05/25/2022): 09/10/21 Eval at [facility] Vascular. PVD of bilateral lower extremities. Advised conservative treatment, f/u 6 months for repeat STACEY and to assess if angioplasty/angiography needed. 05/11/22 F/u [facility] Vacular. No changes. History of mastoiditis 03/31/2022 Overview (03/31/2022): [place] [facility] [place] with sepsis / acute mastoiditis SVC syndrome 05/25/2021 Overview (05/25/2021): [place] [facility] [place]-05[place]12[place]21 for facial swelling thought to be caused by thombosis in internal jugular vein / right internal jugular permacath (through which he receives dialysis). He has fistula but it is not yet mature enough to use. Advised to continue Eliquis 5 mg BID> COVID-19 04/12/2021 Overview (04/12/2021): [place] [facility] [place]-03[place]18[place]21 for Covid-19 and MSSA Bacteremia of his Permacath. Permacath for dialysis removed and a new one replaced. Will get cefazolin x 4 weeks after dialysis. Lantus decreased to 30 units. Pt to continue on Eliquis for the next few weeks until his AV fistula is ready for utilization. Thrombosis of right internal jugular vein ([facility]) 01/04/2021 Overview (01/04/2021): 12/13/20-12/19/20 [place] [facility] [place] [...] asso ciated with type 2 diabetes mellitus ([facility]) 01/09/2020 Iron deficiency anemia 12/24/2019 Anemia in chronic kidney disease 02/19/2019 Fatty food intolerance 04/11/2018 Overview (04/11/2018): Saw [facility] on 04-09-18 will order HIDA scan. Vertebral osteomyelitis ([facility]) 02/09/20 18 Overview (03/24/2018): Saw [facility] ID - --[id number] [...] at [facility] 03/13/15. MRI ordered 03/23/16 MRI of abdomen w/ and w/o contrast 04/07/16 shows multiple cavernous hemagiomas On liver, unchanged from prior study in 2013. DNKA at [facility] GI 05/15/16 Olecranon bursitis of right elbow 02/10/2016 Overview (02/10/2016): 01/20/16 Eval by KYLAH Gill at [facility]. Offered aspiration and injection and accepted. [...] 12/04/2015 Overview (12/04/2015): 11/29/15 [place] [facility] [place] [...] (06/24/2016): 01/26/16 Sleep study consult at [facility] by Omayra Delarosa Recommends split >5 study. F/u after starts on treatment. 02/03/16 PSG at [facility]- split study. Dx: ROBERT, moderate, REM dominant. Order placed to [facility] for CPAP 7 with heated humidifier. 05/08/16 [facility] [place] [facility], active care coordination 07/06 Overview (07/07/2015): Has VNA and PUBLIC BATH ATTENDANT through [facility] H/o Imprisonment and other incarceration 016 Overview (07/01/2015): x12 years in [facility] ESRD (end stage renal disease) on dialysis ([facility]) 06/12/2015 Overview (09/14/2023): Managed by Alejandro [...] Santana at [facility]. Advised continue lisinopril 40 mg QD< Doxazosin [...] with bump in Cr. Advised f/u with extrusion die coordinator. U/S of gallbladder shows nodular liver, hepatic [...] - continue amlodipine 10 mg daily and [id number] 25mg TID, carvedilol 3.125mg BID, doxazosin 4mg [...] placement. I relayed this to his primary [place] Dr. Santana and he agrees with the [...] peritoneal hemodialysis catheter. 04/19/22 Admitted to [facility] for fluid overload, hyperkalemia 08/27/23 [place] [facility] [place] catheter fell out; Chronic obstructive pulmonary disease ([facility]) 06/12/2015 Type 2 diabetes mellitus wit h diabetic nephropathy, with long-term current use of insulin ([facility]) 06/12/2015 Overview (11/16/2020): Followed by [facility] Endocr[facility]ology. Last visit 06/23/15, HbA1c = 11.1%. Has diabetic nephropathy, retinopathy, and peripheral neuropathy. Switched to Novolin 70/30. Taking 23 units TID with meals, may titrate up/down depending on BG readings over the next few days. They are trying to submit PA for Lyrica. 04/27/16 F/u with Estefani Kaur, DO at [facility]. Titrate [...] Resolved Date Peritoneal dialysis catheter in place ([facility] V24) 11/04/2020 03/31/2022 Overview (11/04/2020): Placed 10/02/20 Liver hemangioma 04/18/2016 04/18/2016 Epigastric pain 04/18/2016 11/04/2020 Overview (04/18/2016): Admitted 03/13/16-03/14/16 at for epigastric abd pain, no source of pain determined Encounters Date Type Department Care Team Description 10/28/2024 1:20 PM EDT Telemedicine Visit [address] [phone] Andressa Campos NP Lopez, Iris 10/18/2024 Interim Notes [address] [phone] Frances Lind [place] 10/18/2024 Interim Notes [address] [phone] Lainey Cody FNP 10/17/2024 1:40 PM EDT Office Visit [address] [phone] Pedro Ng, PharmD Alicia Gutierrez from Last 3 Months Immunizations Immunization Administration Dates Next Due Flu, High Dose, 65y+, Fluzon e High Dose 02/15/2022 HEP B,ADULT 06/16/2011,11/01/2010,08/27/2010 Hep B, Adult/Adol ([id number]-ITSLF/RECOMBIVAX-ADULT) 04/13/2016,06/16/2011,11/01/2010,08/27 INFLUENZA, SEASONAL, INJECTABLE 12/22/19,12/03/2019,11/10/2015,02/18 Influenza (FLUZONE), high-do se, trivalent, PF 11/14/2023,12/13/2016 Moderna COVID-19 Vaccine, re d cap blue label, 12+ Primary Series 08/20/2021,01/08/2021,07/29/2020,07/01 PNEUMOCOCCAL CONJUGATE PCV 2 0 (Prevnar 20) 09/14/2023 PNEUMOCOCCAL POLYSACCHARIDE PPV23 (Pneumovax 23) 04/13/2016,11/02/2015,11/05/2012,04/25 [facility] State Funded Flu Vaccine 02/10/2012 TDAP [...] Description 12/04/2024 3:20 PM EDT Office Visit [facility] [address] [place] [address] Lainey Cody FNP [address] [place] [address] Health Maintenance Due Date Last Done Comments [...] Additional history exists Lipid Screening 09/13/2024 09/14/2023, 04/, 05/29/2021, Additional history exists Depression Monitoring 10/04/2024 07/04/2024 , 03/14/2024, 05/18/2023, Additional history exists [id number] ( season) 2024 12/17/2021, 08/20/2021, 01/08/2021, Additional [...] , 10/07/2020, 06/12/2015 Imm-Hepatitis B Completed 01/07/2022, 09/2021, 10/06/2021, Additional history exists Imm-Pneumococcal 50+ Completed 09/14/2023, 01/15/2021, 11/13/2020, Additional history exists Alcohol and Drug Screen Completed 03/14/19, 05/18/2023, 03/31/2022, Additional history exists Procedures Procedure Name Priority Date/Time Associated Diagnosis Comments LIPID PANEL Routine 09/14/2023 12:01 PM EDT Type 2 diabetes mellitus with stage 4 chronic kidney disease, with long-term current use of insulin ([facility]) ESRD (end stage renal disease) on dialysis ([facility]) Essential hypertension HEMOGLOBIN GLYCOSYLATED A1C Routine 09/14/2023 12:01 PM EDT Type 2 diabetes mellitus with stage 4 chronic kidney disease, with long-term current use of insulin ([facility]) ESRD (end stage renal disease) on dialysis ([facility]) Essential hypertension EYE EXAM 08/11/2023 3:00 [...] A1C 8.5(H) <5.7 % of total Hgb [employer] Comment: For someone without known diabetes, a [...] PM EDT 09/14/2023 12:02 PM EDT Narrative [employer] - 09/15/2023 2:52 AM EDT FASTING:NO us Shayla MARTE LAB - BLOOD DRAW Edited R esult - Final [employer] [address] [place] [phone], [place] [address] [phone] * LIPID PANEL (09/14/2023 12:01 PM EDT) CHOLESTEROL, TOTAL 107 <200 mg/dL [place] [facility] HDL CHOLESTEROL 54 > OR = 40 mg/dL [place] [facility] TRIGLYCERIDES 83 <150 mg/dL [place] [facility] LDL-CHOLESTEROL 36 99 mg/dL (calc) [place] [facility] Comment: Reference range: <100 Desirable range <100 mg/dL for primary prevention; <70 mg/dL for patients with CHD or diabetic patients with > or = 2 CHD risk factors. LDL-C is now calculated using the Thais calculation, which is a validated novel method providing better accuracy than the Friedewald equation in the estimation of LDL-C. Ricky SS et al. SUZY. 2013;310(19): 3773-1943 (http://education.[employer]/faq/SBK324) CHOL/HDLC RATIO 2.0 <5.0 (calc) [place] [facility] NON-HDL CHOLESTEROL 53 <130 mg/dL (calc) [place] [facility] Comment: For patients with diabetes plus 1 major ASCVD risk factor, treating to a non-HDL-C goal of <100 mg/dL (LDL-C of <70 mg/dL) is considered a therapeutic option. Blood Blood / Unknown 09/14/2023 1 2:01 PM EDT 09/14/2023 12:02 PM EDT Narrative [employer] - 09/15/2023 2:52 AM EDT FASTING:NO Shayla [facility] - BLOOD DRAW Final Re sult [facility] [address] [place] [phone], [employer] [address] [place] [phone] * EYE EXAM (08/11/2023 3:00 AM EDT) 08/11/2023 3:00 AM EDT Shayla MARTE OTHER Final Res ult * HISTORIC COLONOSCOPY (2022 3:00 AM EST) 2022 3:00 AM EST Shayla Augustine COUNSELLING PSYCHOLOGIST PROCEDURES Final Res ult * (ABNORMAL) HEPATITIS A,B,C PANEL (06/12/2015 3:55 PM EDT) HEPATITIS B SURFACE ANTIBODY NEGATIVE NEGATIVE [facility] HEPATITIS B SURFACE ANTIGEN NEGATIVE NEGATIVE [facility] HEPATITIS C VIRUS DIAGNOSTIC NEGATIVE NEGATIVE [facility] HEPATITIS A ANTIBODY TOTAL POSITIVE(A) NEGATIVE [facility] HEPATITIS B CORE ANTIBODY NEGATIVE NEGATIVE [facility] Blood specimen (specimen) Blood / Unknown 06/12/2015 3:55 PM EDT 06/12/2015 4:00 PM EDT Narrative [facility] - 06/12/2015 8:00 PM EDT [employer] [address] [place] [address] PT ID [id number] ORD# [id number] Shayla Augustine COUNSELLING PSYCHOLOGIST LAB - BLOOD DRAW Delmis R rogerio - Final [facility] [address] [place] [address], [place] [phone] from Last 3 Months or Most Recently Relevant to Health Maintenance [place] D[place] [facility] SAFETY NET DENTAL [employer] MEDICARE COM[place]TE [place] Care Teams Rickshaw Driver Relationship Specialty Start Date End Date Lainey Cody FNP [address] [place] [id number] PCP - General Internal Medicine 12/11/23
--- OUTSIDE RECORDS SUMMARY | 2024-11-27 14:35 | XMS_ITS | Clinical Summary ---
Author Organization [employer] Address [address] [place] [address] [address] [place] [address] Care Team Providers Care Research Instrumentation Technician Name Role Phone Unavailable Primary Care Provider [...]
--- NOTE | 2024-11-27 15:53 | PM.IMHP ---
History of Present Illness Date of Service: 11/27/24 Attending physician on admission: Conor Islas Chief Complaint: Left foot swelling Beau Marie is a 69 years old man with past medical history significant for ESRD on HD (MWF), type 2 diabetes mellitus, gout, essential hypertension, PVD, 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 He denied any fever, dizziness, nausea, vomiting or diarrhea. He denied any acute cardiopulmonary, gastrointestinal or genitourinary symptoms. He is a former tobacco smoker and denied tobacco abuse. Patient mentioned that he has been receiving hemodialysis through a right supraclavicular IV catheters. He also mentioned that the catheter was malfunctioning to the and he missed the last 20 minutes of sees hemodialysis. In the ED, he was found to have stable vital signs. Blood workup was remarkable for leukocytosis of 16.2 hemoglobin 9.5, MCV 74 platelets 224. There is no lactic acidosis. There are no electrolyte imbalances. BUN is 34 and creatinine 5.39. Glucose 165. LFTs are normal except for elevated alk-phos. CRP is 14.74. Albumin is 3.4. Rest foot x-ray showed no finding osteomyelitis. Abdominal and chest x-ray showed cardiomegaly with stable right basilar effusions scaring, right IJ central line terminates in the right atrial and extensive vascular calcification. ECG showed sinus rhythm with premature supraventricular complex and no acute ischemic changes. ED tx: Morphine 8 mg IV total, Zofran 4 mg IV, Zosyn 4.5 mg IV, vancomycin 1 g IV Review of Systems Review of Systems: All 12 systems were reviewed and normal except as noted in HPI. [facility] Medical History (Updated 11/28/24 @ 18:11 by Lindsay Carranza MD) Peripheral arterial disease Gangrene of hand Above knee amputation of right lower extremity Left ventricular systolic dysfunction (LVSD) PVD (peripheral vascular disease) Postop check Acute pericardial effusion Right sided weakness Dehiscence of wound Dry gangrene Cellulitis of right foot HFrEF (heart failure with reduced ejection fraction) Chronic combined systolic and diastolic CHF (congestive heart failure) Chronic pericardial effusion Arthritis Asthma Restless leg syndrome Acute on chronic systolic and diastolic heart failure, NYHA class 3 Anemia Occlusive thrombus Pulmonary edema ROBERT (obstructive sleep apnea) Type 2 diabetes mellitus Hyperlipidemia Hypertension A-V fistula ESRD on dialysis Falling Family History Father No problems noted. Mother No problems noted. Surgical History Status post creation of pericardial window Hx of right BKA History of transmetatarsal amputation of foot Status post transmetatarsal amputation of right foot Postop check History of surgery H/O colonoscopy Recurrent pleural effusion Pleural effusion on right (07/13/23) Social History Household Members: Children Household Members Other:: son Housing: House Are you a primary customer care manager to a significant other at home: No Do you presently have visiting nurse or other home services: Yes Alcohol intake: former Comment: 1:1 for SI Patient Tobacco Use Status: Former Tobacco user Tobacco use type: Cigarette Smoked in Last 30 Days: No Second Hand Smoke Exposure: No Use of substances other than those prescribed or required for medical reasons: No Currently Displaying Signs/Symptoms of Drug Intoxication Withdrawal: No Have you been hit, kicked, punched, or otherwise hurt by someone within the past year? 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 Meds Allergies Allergy/AdvReac Type Severity Reaction Status Date / Time Iodinated Contrast Media Allergy Severe Facial Verified 11/27/24 11:09 (Contrast Dye) Swelling hydralazine AdvReac Severe vasculitis Verified 11/27/24 11:09 Home Medications ?Medication ?Instructions ?Recorded ?Confirmed ?Last Taken ?Type allopurinol 100 mg tablet 100 mg PO MOWEFR 04/19/22 11/27/24 11/25/24 History doxazosin 4 mg tablet 4 mg PO BEDTIME 04/19/22 11/27/24 11/26/24 History omeprazole 20 mg capsule,delayed 20 mg PO DAILY@0630 04/19/22 11/27/24 11/26/24 History release pregabalin 75 mg capsule 75 mg PO DAILY 06/20/23 11/27/24 11/26/24 History aspirin 81 mg tablet,delayed 81 mg PO DAILY 04/05/24 11/27/24 11/26/24 History release fluticasone fur. 100 mcg-umeclid 1 inh inhalation DAILY 04/05/24 11/27/24 11/26/24 History 62.5 mcg-vilant 25 mcg inhalat.powder (Trelegy Ellipta) losartan 25 mg tablet 25 mg PO DAILY 04/05/24 11/27/24 11/26/24 History insulin glargine 100 unit/mL (3 22 unit subcut BEDTIME 05/01/24 11/27/24 11/26/24 History mL) subcutaneous pen (Lantus Solostar U-100 Insulin) amlodipine 10 mg tablet 10 mg PO DAILY 05/26/24 11/27/24 11/26/24 History insulin lispro 100 unit/mL See Protocol subcut TIDAC PRN 05/26/24 11/27/24 08/21/24 History subcutaneous solution (Humalog Hyperglycemia U-100 Insulin) albuterol sulfate 90 mcg/actuation 2 puff inhalation Q4H PRN wheezing 08/22/24 11/27/24 Unknown History aerosol inhaler (Ventolin HFA) carvedilol 6.25 mg tablet 6.25 mg PO BID 08/22/24 11/27/24 11/26/24 History ipratropium 0.5 mg-albuterol 3 mg 3 ml inhalation QID PRN Shortness 08/22/24 11/27/24 08/21/24 History (2.5 mg base)/3 mL nebulization Of Breath soln sucroferric oxyhydroxide 500 mg 500 mg PO TIDWM 08/22/24 11/27/24 11/26/24 History chewable tablet (Velphoro) Physical Exam Vital Signs and Narrative: Vital Signs: Last Vital Signs Temp 98.6 F 11/27/24 11:18 Pulse 77 11/27/24 12:49 Resp 17 11/27/24 12:49 BP 157/81 H 11/27/24 12:49 Pulse Ox 97 11/27/24 12:49 O2 Del Method Room Air 11/27/24 12:49 BMI result Body Mass Index 25.0 Constitutional - Awake and Alert, No apparent distress HEENT - PER, EOMI Heart - RRR, No murmurs Lungs - Normal lung expansion, Normal respiratory effort, No respiratory distress, CTA bilaterally Abdomen- NT / ND; +BS; No rebound or guarding Extremities - Right BKA. Left lower extremity: Left foot: 1st and 2nd toe necrosis. Right hand: 2-5 digits amputation Musculoskeletal - Normal inspection, normal ROM Skin - Warm/Dry Neurological - Alert & oriented x3. Moving all extremities spontaneously. Psychological - Appropriate affect Results Labs 11/29/24 06:05 11/30/24 11:13 Labs: Laboratory Results - last 24 hr 11/27/24 12:20 MCV 74.0 L MCH 22.9 L MCHC 30.9 L RDW 17.5 H Plt Count 224 MPV 10.4 Immature Gran % (Auto) 1.0 H Neut % (Auto) 86.0 H Lymph % (Auto) 7.2 L Mchenry % (Auto) 5.2 Eos % (Auto) 0.4 Baso % (Auto) 0.2 Lymph # (Auto) 1.2 Mchenry # (Auto) 0.8 Eos # (Auto) 0.1 Baso # (Auto) 0.0 Abs Immat Gran (auto) 0.16 H Absolute Neuts (auto) 14.0 H Absolute Nucleated RBC 0.070 H Nucleated RBC % (auto) 0.4 H ESR 45 H Anion Gap 15 Estim Creat Clear Calc 11.4 Estimated GFR 11 Random Glucose 165 H Lactic Acid 1.7 Calcium 8.7 Total Bilirubin 0.3 AST 16 ALT < 6 Alkaline Phosphatase 122 H C-Reactive Protein 14.79 H Total Protein 6.8 Albumin 3.4 L Imaging Radiologist's Impressions: Impressions Foot X-Ray 11/27/24 13:21 IMPRESSION: 1. No definite acute bony findings of the left foot. Specifically, no radiographic evidence of osteomyelitis. 2. Extensive osteopenia. 3. Prior amputation of the hallux at the level of the proximal metaphysis of the distal phalanx. 4. Extensive vascular calcifications. Electronically signed by: Morro Van MD 11/27/2024 01:44 PM EDT RP Chest/Abdomen X-ray 11/27/24 13:24 IMPRESSION: Cardiomegaly with stable right basilar effusion/scarring. Right IJ central line terminates in the right atrium. Nonspecific bowel gas pattern. Extensive vascular calcifications. Electronically signed by: Braulio Ordoñez MD 11/27/2024 01:45 PM EDT RP Assessment and Plan (1) Left foot pain: Status: Acute (2) Gangrene due to arterial insufficiency: Status: Acute Plan Beau Marie is a 69 y/o man with a PMHx significant for PVD s/p right transmetacarpal amputation (2nd-5th digits) and right BKA who presents with: Left first toe dry gangrene + 2nd toe dark discoloration likely ischemia; intractable pain. Leukocytosis and elevated CRP. We will cover him with vancomycin and ceftriaxone empirically. Pain control with Dilaudid 1 mg IV q.4 hours as needed. Continue aspirin and atorvastatin. Vascular surgery consult. End-stage renal disease on hemodialysis; MWF. No hyperkalemia or acidosis. Had hemodialysis today. Patient mentioned that hemodialysis catheter is malfunctioning. Continue Velphoro. Type 2 diabetes mellitus. BG checks before meals at bedtime. Continue Lantus. Insulin sliding scale. Diabetic diet. Diabetic neuropathy. Continue pregabalin. Essential hypertension. Continue losartan, amlodipine, doxazosin and carvedilol. Seizure disorder. Continue levetiracetam. Hyperlipidemia. Continue statin. Obstructive sleep apnea. Nocturnal CPAP. Chronic hypoxic respiratory failure. Continue home oxygen 2 L/min via nasal cannula. Continue home meds. Gout. Continue allopurinol. Code status: Full DVT prophylaxis: Heparin Patient will need hospitalization for at least 2 midnights for severe left 1st toe pain secondary to gangrene treatment with IV pain meds Quality Stroke Does the patient have a stroke diagnosis?: No VTE Prior VTE?: No VTE Risk Level:: Medical - moderate - high VTE Device Contraindication: Treatment Not Indicated VTE Drug Contraindication: N/A - Med Ordered
[2024-11-27 16:31] LABS: Glucose, Whole Blood 152 mg/dL (60-115)
[2024-11-27 16:42] VITALS: BP 171/85; PULSE 72; RESP 18; TEMP 36.4; O2SAT 95
[2024-11-27] MEDS: 0.9 % Sodium Chloride Flush 3 ML SYRINGE IVFLUSH ×2 (17:48→20:43)
--- NOTE | 2024-11-27 18:26 | HO.SKINPHOTO ---
Location:right hand Category: Stage: Length: Width: Depth: cm Location:left calf Category: Stage: Length: Width: Depth: cm Location: Category: Stage: Length: Width: Depth: cm Location: Category: Stage: Length: Width: Depth: cm Location: Category: Stage: Length: Width: Depth: cm Location: Category: Stage: Length: Width: Depth: cm
[2024-11-27 19:06] VITALS: BP 136/78; PULSE 79; RESP 18; TEMP 36.7; O2SAT 99
--- NOTE | 2024-11-27 20:05 | PHA.MEDREC ---
Addendum entered by Cele Atkinson RP 11/27/24 20:44: Reviewed by [facility] Original Note: Pharmacy Consult ? Medication Reconciliation Pharmacy has completed the medication reconciliation. Spoke with pt and he was a poor historian; pt was able to confirm his Lantus insulin, taking 23 units at bedtime and he states he uses Humalog TIDAC per sliding scale as needed for hyperglycemia, pt was not able to confirm anything else and states his son was able to confirm his meds with us. I called pt son and he was able to confirm some of pt medications but was not sure on all of them. Pt son confirmed the pt still taking Amlodipine 5mg QD tabs and Levetiracetam 1000mg BID and getting those filled at [facility] pharmacy (along with all pt other medications). Got a list from [facility] and utilized list and what pt son confirmed with me.
[2024-11-27 20:15] LABS: Glucose, Whole Blood 204 mg/dL (60-115)
[2024-11-27] MEDS: Insulin Glargine,Hum.rec.anlog 100 UNIT/ML 10 ML VIAL 22 UNIT SUBCUT (20:42)
--- NOTE | 2024-11-27 20:49 | PC.NURSE ---
Patient states is using O2 at 2 Liters at night for sleep apnea. No CPAP, respiratory aware. O2 applied.
[2024-11-27] MEDS: Milk of Magnesia 30 ML ORAL.SUSP PO (22:26)
[2024-11-28] MEDS: oxyCODONE HCl Immed Release 5 MG TABLET PO ×3 (00:15→12:31)
[2024-11-28 03:25] VITALS: BP 152/63; PULSE 53; RESP 18; TEMP 37; O2SAT 100
[2024-11-28 03:38] LABS: Glucose, Whole Blood 35 mg/dL (60-115)
[2024-11-28 03:53] LABS: Glucose, Whole Blood 137 mg/dL (60-115)
--- NOTE | 2024-11-28 04:15 | PC.NURSE ---
at 0330 noticed patient very diaphoretic, pale skin, very sleepy and weak. Blood sugar checked and was 35, immediately an amp of D50 administered. Blood sugar rechecked at [address] Romero made aware. Patient awake, states feeling better. Earlier was reporting left sided abdominal discomfort , stated had a very small BM yesterday and not remember when he moved his bowels prior to that. Assessment, positive BS, abdomen semi-firm. MOM given, awaiting results. Patient is burping a lot. Also one time dose of Oxycodone ordered and given for left foot pain with positive effect.
[2024-11-28 07:37] VITALS: BP 139/67; PULSE 64; RESP 16; O2SAT 98
[2024-11-28 07:44] LABS: Glucose, Whole Blood 104 mg/dL (60-115)
[2024-11-28] MEDS: Fluticasone/Umeclidinium/Vilanterol 100/62.5/25 BLST.W.DEV 1 PUFF INHALE (08:06)
[2024-11-28 08:09] VITALS: PULSE 64; RESP 16
[2024-11-28] MEDS: Aspirin Enteric Coated 81 MG TABLET.DR PO (08:24)
[2024-11-28] MEDS: 0.9 % Sodium Chloride Flush 3 ML SYRINGE IVFLUSH ×2 (09:36→17:22)
--- NOTE | 2024-11-28 10:51 | P.PNIM_ITS ---
Subjective Subjective Date of Service: 11/28/24 Interval History: seen and examined this morning follow up for foot gangrene low blood sugar overnight history obtained with the assistance of a office services assistant pt reporting abdominal pain, attempted to evaluate abdomen, pt reporting pain even with gentle palpation denies n/v//diarrhea, fever or chills lab work still done drawn Review of Systems Review of Systems: Yes all other systems are reviewed and are negative Constitutional Constitutional: Denies chills and Denies fever(s) Cardiovascular Cardiovascular: Denies chest pain and Denies dyspnea Respiratory Respiratory: Denies dyspnea Gastrointestinal Gastrointestinal: Reports abdominal pain, Denies nausea and Denies vomiting Physical Exam 2 Vital Signs: Vital Signs: Last Vital Signs Temp 98.6 F 11/28/24 03:25 Pulse 64 11/28/24 08:09 Resp 16 11/28/24 08:09 BP 139/67 11/28/24 07:37 Pulse Ox 98 11/28/24 07:37 O2 Del Method Nasal Cannula 11/28/24 07:37 O2 Flow Rate 2 11/28/24 07:37 BMI result Body Mass Index 25.0 Const: General: alert and awake Nutritional Appearance: average body habitus Orientation/consciousness: patient oriented x3 Resp: Effort & Inspection: normal respiratory effort, no respiratory distress and no use of accessory muscles Cardio: Rate: regular rate GI: Other: reporting pain even with soft palpation so unable to deeply palpate, but abdomen is soft, non-distended, no guarding or rigidity Inspection: No distended Palpation (GI): Soft to palpation Neuro: General: patient oriented x3, moves all extremities and CN's II-XI intact bilaterally Extrem: Other: left great toe necrotic; right hand s/p multiple finger amputations with clean/dry/dressing; s/p right AKA Objective Data Active Medications Acetaminophen (Acetaminophen 325 Mg Tablet) 975 mg PO Q6H PRN PRN Reason: Pain, Mild 1-3,fever,headache Last Admin: 11/27/24 22:11 Dose: 975 mg Documented By: MYLENE Albuterol Sulfate (Albuterol Sulfate 90 Mcg 8 Gm Inhaler) 2 puff INHALE Q4H PRN PRN Reason: Wheezing Albuterol/Ipratropium (Albuterol/Iprat 2.5/0.5mg 3 Ml Ampul.Neb) 3 ml INHALE QID PRN PRN Reason: Shortness of Breath Allopurinol (Allopurinol 100 Mg Tablet) 100 mg PO MOWEFR [facility] Amlodipine Besylate (Amlodipine Besylate 10 Mg Tablet) 10 mg PO DAILY [facility]; Protocol Last Admin: 11/28/24 08:24 Dose: 10 mg Documented By: KUMAR Aspirin (Aspirin Enteric Coated 81 Mg Tablet.Dr) 81 mg PO DAILY [facility] Last Admin: 11/28/24 08:24 Dose: 81 mg Documented By: KUMAR Calcium Carbonate (Calcium Carbonate 750 Mg Tab.Chew) 750 mg PO Q4H PRN PRN Reason: Heartburn Carvedilol (Carvedilol 6.25 Mg Tablet) 6.25 mg PO BID [facility]; Protocol Last Admin: 11/28/24 08:24 Dose: 6.25 mg Documented By: KUMAR Dextrose (Dextrose 50 % 25 Gm/50 Ml Syringe) 25 gm IVPUSH Q15M PRN; Protocol PRN Reason: per Hypoglycemia Standing Ord. Last Admin: 11/28/24 03:34 Dose: 25 gm Documented By: MYLENE Doxazosin Mesylate (Doxazosin Mesylate 2 Mg Tablet) 4 mg PO BEDTIME [facility]; Protocol Last Admin: 11/27/24 20:41 Dose: 4 mg Documented By: MYLENE Fluticasone/Umeclidinium/Vilanterol (Fluticasone/Umeclidinium/Vilanterol 100/62.5/25 Blst.W.Dev) 1 puff INHALE RDAILY [facility] Last Admin: 11/28/24 08:06 Dose: 1 puff Documented By: PATTIE Glucose (Glucose Gel 15 Gm Gel..Gram.) 15 gm PO Q15M PRN; Protocol PRN Reason: per Hypoglycemia Standing Ord. Heparin Sodium (Porcine) (Heparin Sodium,Porcine 5,000 Unit/Ml Vial) 5,000 unit SUBCUT Q12H [facility] Last Admin: 11/28/24 08:26 Dose: 5,000 unit Documented By: KUMAR Piperacillin Sod/Tazobactam (Sod 2.25 gm/ Sodium Chloride) 50 mls @ 100 mls/hr IV Q6H [facility] Last Infusion: 11/28/24 07:07 Dose: Infused Documented By: SARIAH Vancomycin HCl 500 mg/ Sodium (Chloride) 110 mls @ 110 mls/hr IV MoWeFr [facility] Insulin Glargine (Insulin Glargine,Hum.Rec.Anlog 100 Unit/Ml 10 Ml Vial) 22 unit SUBCUT BEDTIME [facility] Last Admin: 11/27/24 20:42 Dose: 22 unit Documented By: MYLENE Insulin Human Lispro (Insulin Lispro 100 Unit/Ml 3 Ml Vial) 0 unit SUBCUT QIDACHS [facility]; Protocol Last Admin: 11/28/24 07:45 Dose: Not Given Documented By: KUMAR Non-Admin Reason: No Insulin Coverage Levetiracetam (Levetiracetam 1,000 Mg Tablet) 1,000 mg PO BID [facility] Last Admin: 11/28/24 08:24 Dose: 1,000 mg Documented By: KUMAR Losartan Potassium (Losartan Potassium 25 Mg Tablet) 25 mg PO DAILY [facility]; Protocol Last Admin: 11/28/24 08:24 Dose: 25 mg Documented By: KUMAR Magnesium Hydroxide (Milk Of Magnesia 30 Ml Oral.Susp) 30 ml PO DAILY PRN PRN Reason: Constipation Last Admin: 11/27/24 22:26 Dose: 30 ml Documented By: MYLENE Melatonin (Melatonin 3 Mg Tablet) 6 mg PO BEDTIME PRN PRN Reason: Insomnia Non-Formulary Medication (Sucroferric Oxyhydroxide [Velphoro]) 500 mg PO TIDWM [facility] Omeprazole (Omeprazole 20 Mg Capsule.Dr) 20 mg PO DAILY@0630 [facility] Oxycodone HCl (Oxycodone Hcl Immed Release 5 Mg Tablet) 5 mg PO Q4H PRN PRN Reason: Pain, Severe (Pain Scale 7-10) Last Admin: 11/28/24 08:24 Dose: 5 mg Documented By: KUMAR Pharmacy Consult (Consult Rx Vancomycin Dosing) 1 each MISCELLANE DAILY PRN PRN Reason: Consult order Pregabalin (Pregabalin 75 Mg Capsule) 75 mg PO DAILY [facility] Last Admin: 11/28/24 08:24 Dose: 75 mg Documented By: KUMAR Sodium Chloride (0.9 % Sodium Chloride Flush 3 Ml Syringe) 3 ml IVFLUSH QSHIFT [facility] Last Admin: 11/28/24 09:36 Dose: 3 ml Documented By: KUMAR Labs 11/27/24 12:20 11/27/24 12:20 Labs: Laboratory Results - last 24 hr 11/27/24 11/27/24 11/27/24 12:20 16:27 20:06 MCV 74.0 L MCH 22.9 L MCHC 30.9 L RDW 17.5 H Plt Count 224 MPV 10.4 Immature Gran % (Auto) 1.0 H Neut % (Auto) 86.0 H Lymph % (Auto) 7.2 L Dunn % (Auto) 5.2 Eos % (Auto) 0.4 Baso % (Auto) 0.2 Lymph # (Auto) 1.2 Dunn # (Auto) 0.8 Eos # (Auto) 0.1 Baso # (Auto) 0.0 Abs Immat Gran (auto) 0.16 H Absolute Neuts (auto) 14.0 H Absolute Nucleated RBC 0.070 H Nucleated RBC % (auto) 0.4 H ESR 45 H Anion Gap 15 Estim Creat Clear Calc 11.4 Estimated GFR 11 POC Glucose 152 H 204 H Random Glucose 165 H Lactic Acid 1.7 Calcium 8.7 Total Bilirubin 0.3 AST 16 ALT < 6 Alkaline Phosphatase 122 H C-Reactive Protein 14.79 H Total Protein 6.8 Albumin 3.4 L 11/28/24 11/28/24 11/28/24 03:32 03:49 07:40 MCV MCH MCHC RDW Plt Count MPV Immature Gran % (Auto) Neut % (Auto) Lymph % (Auto) Dunn % (Auto) Eos % (Auto) Baso % (Auto) Lymph # (Auto) Dunn # (Auto) Eos # (Auto) Baso # (Auto) Abs Immat Gran (auto) Absolute Neuts (auto) Absolute Nucleated RBC Nucleated RBC % (auto) ESR Anion Gap Estim Creat Clear Calc Estimated GFR POC Glucose 35 L* 137 H 104 Random Glucose Lactic Acid Calcium Total Bilirubin AST ALT Alkaline Phosphatase C-Reactive Protein Total Protein Albumin Assessment and Plan (1) Gangrene due to arterial insufficiency: Status: Acute Plan This is a 69 y/o man with a PMHx significant for PVD s/p right transmetacarpal amputation (2nd-5th digits) and right BKA who presents with: Left first toe dry gangrene + 2nd toe dark discoloration likely ischemia; intractable pain. Leukocytosis and elevated CRP vancomycin and zosyn empirically Continue aspirin and atorvastatin Vascular surgery consult. trend CBC abdominal pain nonspecific bowel gas pattern abdomen soft, non-distended LFTs pending End-stage renal disease on hemodialysis; MWF. No hyperkalemia or acidosis. Had hemodialysis today. Patient mentioned that hemodialysis catheter is malfunctioning. nephrology consult for ongoing HD Type 2 diabetes mellitus. BG checks before meals at bedtime. hypoglycemia overnight, reduce dose of Lantus. Insulin sliding scale. Diabetic diet Diabetic neuropathy. Continue pregabalin. Essential hypertension. Continue losartan, amlodipine, doxazosin and carvedilol. Seizure disorder. Continue levetiracetam. Hyperlipidemia. Continue statin. Obstructive sleep apnea. Continue CPAP. Chronic hypoxic respiratory failure. Continue home oxygen 2 L/min via nasal cannula at night. Bronchodilator therapy as needed. Gout. Continue allopurinol. Code status: Full DVT prophylaxis: Heparin Requires ongoing inpatient stay for severe left 1st toe pain secondary to gangrene treatment and possible surgical intervention Quality Stroke Does the patient have a stroke diagnosis?: No VTE Prior VTE?: No VTE Risk Level:: Medical - moderate - high VTE Device Contraindication: Treatment Not Indicated VTE Drug Contraindication: N/A - Med Ordered
[2024-11-28 11:32] LABS: NRBC Abs Auto 0.040 X10*3/uL (0.0-0.012); NRBC Pct Auto 0.2 /100WBC (0.0-0.2); SCAN SMEAR FLAG 1
[2024-11-28 11:34] LABS: Hematocrit 35.4 % (42.0-52.0); Hemoglobin 11.1 g/dl (14.0-18.0); Imm Gran Abs Auto 0.18 X10*3/uL (0.00-0.03); Imm Gran Pct Auto 0.9 % (0.0-0.4); Lymphocytes Absolute Auto 0.6 X10*3/uL (1.2-4.9); MANUAL DIFF FLAG SCAN; Mean Corpuscular HGB Conc 31.4 g/dl (31.0-36.0); Mean Corpuscular Hemoglobin 23.6 pg (27.0-33.0); Mean Corpuscular Volume 75.2 fL (80.0-98.0); Red Blood Count 4.71 X10*6/uL (4.60-5.80)
[2024-11-28 11:35] LABS: PLT ABN DIST 1
[2024-11-28 11:45] LABS: Glucose, Whole Blood 81 mg/dL (60-115)
[2024-11-28 12:36] LABS: White Blood Count 19.6 X10*3/uL (4.8-10.8)
[2024-11-28 12:37] LABS: Alanine Aminotransferase < 6 U/L (0-40); Albumin Level 3.3 g/dL (3.5-5.0); Alkaline Phosphatase 104 U/L (39-117); Anion Gap 19 (12-20); Aspartate Amino Transferase 20 U/L (5-37); Blood Urea Nitrogen 47 mg/dL (9-16); Calcium 8.2 mg/dL (8.4-10.2); Carbon Dioxide 27 mmol/L (22-29); Chloride 100 mmol/L (96-108); Creatinine Clr Calc Pharmacy 9.1; Estimated Glomerular Filt Rate 8; Magnesium 2.0 mg/dL (1.6-2.6); Potassium 5.6 mmol/L (3.3-5.1); Sodium 140 mmol/L (135-145); Total Protein 6.9 g/dL (6.5-8.0)
--- NOTE | 2024-11-28 12:59 | PM.CNNEP ---
History of Present Illness Reason for Consult Consult date: 11/28/24 Reason for consult: End stage renal disease Chief Complaint Chief complaint: Left Foot Cellulitis History of Present Illness Narrative: 69 years old man with past medical history significant for ESRD on HD (MWF), type 2 diabetes mellitus, gout, essential hypertension, PVD, 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 Review of Systems Review of Systems Abdominal pain. No nausea or vomiting. No fever. [facility] Past Medical History Medical History Gangrene of hand Above knee amputation of right lower extremity Left ventricular systolic dysfunction (LVSD) PVD (peripheral vascular disease) Postop check Acute pericardial effusion Right sided weakness Dehiscence of wound Peripheral arterial disease Dry gangrene Cellulitis of right foot HFrEF (heart failure with reduced ejection fraction) Chronic combined systolic and diastolic CHF (congestive heart failure) Chronic pericardial effusion Arthritis Asthma Restless leg syndrome Acute on chronic systolic and diastolic heart failure, NYHA class 3 Anemia Occlusive thrombus Pulmonary edema ROBERT (obstructive sleep apnea) Type 2 diabetes mellitus Hyperlipidemia Hypertension A-V fistula ESRD on dialysis Falling Family History Family History Father No problems noted. Mother No problems noted. Surgical History Surgical History Status post creation of pericardial window Hx of right BKA History of transmetatarsal amputation of foot Status post transmetatarsal amputation of right foot Postop check History of surgery H/O colonoscopy Recurrent pleural effusion Pleural effusion on right (07/13/23) Social History Social History Household Members: Children Household Members Other:: son Housing: House Are you a primary healthcare associate to a significant other at home: No Do you presently have visiting nurse or other home services: Yes Alcohol intake: former Comment: 1:1 for SI Patient Tobacco Use Status: Former Tobacco user Tobacco use type: Cigarette Smoked in Last 30 Days: No Second Hand Smoke Exposure: No Use of substances other than those prescribed or required for medical reasons: No Currently Displaying Signs/Symptoms of Drug Intoxication Withdrawal: No Have you been hit, kicked, punched, or otherwise hurt by someone within the past year? 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 Meds Allergies Allergy/AdvReac Type Severity Reaction Status Date / Time Iodinated Contrast Media Allergy Severe Facial Verified 11/27/24 11:09 (Contrast Dye) Swelling hydralazine AdvReac Severe vasculitis Verified 11/27/24 11:09 Active Medications: Current Medications Acetaminophen (Acetaminophen 325 Mg Tablet) 975 mg PO Q6H PRN PRN Reason: Pain, Mild 1-3,fever,headache Last Admin: 11/27/24 22:11 Dose: 975 mg Albuterol Sulfate (Albuterol Sulfate 90 Mcg 8 Gm Inhaler) 2 puff INHALE Q4H PRN PRN Reason: Wheezing Albuterol/Ipratropium (Albuterol/Iprat 2.5/0.5mg 3 Ml Ampul.Neb) 3 ml INHALE QID PRN PRN Reason: Shortness of Breath Allopurinol (Allopurinol 100 Mg Tablet) 100 mg PO MOWEFR [facility] Amlodipine Besylate (Amlodipine Besylate 10 Mg Tablet) 10 mg PO DAILY [facility]; Protocol Last Admin: 11/28/24 08:24 Dose: 10 mg Aspirin (Aspirin Enteric Coated 81 Mg Tablet.Dr) 81 mg PO DAILY [facility] Last Admin: 11/28/24 08:24 Dose: 81 mg Calcium Carbonate (Calcium Carbonate 750 Mg Tab.Chew) 750 mg PO Q4H PRN PRN Reason: Heartburn Carvedilol (Carvedilol 6.25 Mg Tablet) 6.25 mg PO BID [facility]; Protocol Last Admin: 11/28/24 08:24 Dose: 6.25 mg Dextrose (Dextrose 50 % 25 Gm/50 Ml Syringe) 25 gm IVPUSH Q15M PRN; Protocol PRN Reason: per Hypoglycemia Standing Ord. Last Admin: 11/28/24 03:34 Dose: 25 gm Doxazosin Mesylate (Doxazosin Mesylate 2 Mg Tablet) 4 mg PO BEDTIME [facility]; Protocol Last Admin: 11/27/24 20:41 Dose: 4 mg Fluticasone/Umeclidinium/Vilanterol (Fluticasone/Umeclidinium/Vilanterol 100/62.5/25 Blst.W.Dev) 1 puff INHALE RDAILY [facility] Last Admin: 11/28/24 08:06 Dose: 1 puff Glucose (Glucose Gel 15 Gm Gel..Gram.) 15 gm PO Q15M PRN; Protocol PRN Reason: per Hypoglycemia Standing Ord. Heparin Sodium (Porcine) (Heparin Sodium,Porcine 5,000 Unit/Ml Vial) 5,000 unit SUBCUT Q12H [facility] Last Admin: 11/28/24 08:26 Dose: 5,000 unit Piperacillin Sod/Tazobactam (Sod 2.25 gm/ Sodium Chloride) 50 mls @ 100 mls/hr IV Q6H [facility] Last Admin: 11/28/24 12:34 Dose: 100 mls/hr Vancomycin HCl 500 mg/ Sodium (Chloride) 110 mls @ 110 mls/hr IV MoWeFr [facility] Insulin Glargine (Insulin Glargine,Hum.Rec.Anlog 100 Unit/Ml 10 Ml Vial) 15 unit SUBCUT BEDTIME [facility] Insulin Human Lispro (Insulin Lispro 100 Unit/Ml 3 Ml Vial) 0 unit SUBCUT QIDACHS [facility]; Protocol Last Admin: 11/28/24 11:53 Dose: Not Given Levetiracetam (Levetiracetam 1,000 Mg Tablet) 1,000 mg PO BID [facility] Last Admin: 11/28/24 08:24 Dose: 1,000 mg Losartan Potassium (Losartan Potassium 25 Mg Tablet) 25 mg PO DAILY [facility]; Protocol Last Admin: 11/28/24 08:24 Dose: 25 mg Magnesium Hydroxide (Milk Of Magnesia 30 Ml Oral.Susp) 30 ml PO DAILY PRN PRN Reason: Constipation Last Admin: 11/27/24 22:26 Dose: 30 ml Melatonin (Melatonin 3 Mg Tablet) 6 mg PO BEDTIME PRN PRN Reason: Insomnia Non-Formulary Medication (Sucroferric Oxyhydroxide [Velphoro]) 500 mg PO TIDWM [facility] Omeprazole (Omeprazole 20 Mg Capsule.Dr) 20 mg PO DAILY@06 [facility] Oxycodone HCl (Oxycodone Hcl Immed Release 5 Mg Tablet) 5 mg PO Q4H PRN PRN Reason: Pain, Severe (Pain Scale 7-10) Last Admin: 11/28/24 12:31 Dose: 5 mg Pharmacy Consult (Consult Rx Vancomycin Dosing) 1 each MISCELLANE DAILY PRN PRN Reason: Consult order Pregabalin (Pregabalin 75 Mg Capsule) 75 mg PO DAILY [facility] Last Admin: 11/28/24 08:24 Dose: 75 mg Sodium Chloride (0.9 % Sodium Chloride Flush 3 Ml Syringe) [facility] Last Admin: 11/28/24 09:36 Dose: 3 ml Home Medications ?Medication ?Instructions ?Recorded ?Confirmed ?Last Taken ?Type allopurinol 100 mg tablet 100 mg PO MOWEFR 04/19/22 11/27/24 11/25/24 History doxazosin 4 mg tablet 4 mg PO BEDTIME 04/19/22 11/27/24 11/26/24 History omeprazole 20 mg capsule,delayed 20 mg PO DAILY@30 04/19/22 11/27/24 11/26/24 History release pregabalin 75 mg capsule 75 mg PO DAILY 06/20/23 11/27/24 11/26/24 History aspirin 81 mg tablet,delayed 81 mg PO DAILY 04/05/24 11/27/24 11/26/24 History release fluticasone fur. 100 mcg-umeclid 1 inh inhalation DAILY 04/05/24 11/27/24 11/26/24 History 62.5 mcg-vilant 25 mcg inhalat.powder (Trelegy Ellipta) losartan 25 mg tablet 25 mg PO DAILY 04/05/24 11/27/24 11/26/24 History insulin glargine 100 unit/mL (3 22 unit subcut BEDTIME 05/01/24 11/27/24 11/26/24 History mL) subcutaneous pen (Lantus Solostar U-100 Insulin) amlodipine 10 mg tablet 10 mg PO DAILY 05/26/24 11/27/24 11/26/24 History insulin lispro 100 unit/mL See Protocol subcut TIDAC PRN 05/26/24 11/27/24 08/21/24 History subcutaneous solution (Humalog Hyperglycemia U-100 Insulin) albuterol sulfate 90 mcg/actuation 2 puff inhalation Q4H PRN wheezing 08/22/24 11/27/24 Unknown History aerosol inhaler (Ventolin HFA) carvedilol 6.25 mg tablet 6.25 mg PO BID 08/22/24 11/27/24 11/26/24 History ipratropium 0.5 mg-albuterol 3 mg 3 ml inhalation QID PRN Shortness 08/22/24 11/27/24 08/21/24 History (2.5 mg base)/3 mL nebulization Of Breath soln sucroferric oxyhydroxide 500 mg 500 mg PO TIDWM 08/22/24 11/27/24 11/26/24 History chewable tablet (Velphoro) Physical Exam Vital Signs: Last Vital Signs Temp 98.6 F 11/28/24 03:25 Pulse 64 11/28/24 08:09 Resp 16 11/28/24 08:09 BP 139/67 11/28/24 07:37 Pulse Ox 98 11/28/24 07:37 O2 Del Method Nasal Cannula 11/28/24 07:37 O2 Flow Rate 2 11/28/24 07:37 BMI result Body Mass Index 25.0 Comfortable Neck supple no JVD. Lungs entry equal no rales. Heart S1-S2 heard no gallop or rub. Abdomen soft left lower quadrant tenderness. Neuro alert awake oriented. No asterixis. Extremities no edema. Status post amputation Results Lab Results 11/28/24 11:19 11/28/24 12:12 Lab results: Chemistry 11/27/24 11/28/24 12:20 12:12 Sodium 138 140 Potassium 3.8 D 5.6 H D Carbon Dioxide 27 27 BUN 34 H 47 H Creatinine 5.39 H* 6.73 H* Calcium 8.7 8.2 L Hematology 11/27/24 11/28/24 12:20 11:19 WBC 16.2 H 19.6 H Hgb 9.5 L 11.1 L Plt Count 224 TNP Assessment and Plan (1) ESRD needing dialysis: Status: Acute Plan No signs or symptoms of uremia. Fluid status acceptable Mild hyperkalemia We will arrange for hemodialysis on Monday schedule. Keep on low potassium bath. Keep on low-potassium diet. Addressed abdominal issues Concur with other management. Procedures Date of Service Date of Service: 11/28/24
--- NOTE | 2024-11-28 14:41 | MHC.CM.PN ---
CM assessment completed with son/HCP Nestor at bedside. Patient sleeping. Per chart, patient japanese speaking. Son speaks Vietnamese, so no aircraft inspector needed. IMM delivered. Patient lives in an apartment w/ a family member. Nestor is patient's daily STORE DELI MANAGER, providing all care and transportation. Uses w/c, 1 assist for transfers. 2L home O2 via [employer]. Active w/ [facility] for SN. HD M/W/F @ [facility], 7am chair time, son transports. DP: Home, resume services, son to transport. CM will continue to follow.
--- NOTE | 2024-11-28 14:53 | P.CNGI_ITS ---
History of Present Illness Data of Consult Service Date: 11/28/24 Requesting physician: Dara Mcfadden Primary Care Provider: [facility] Reason for consult: Abdominal pain 69 year old Irish-speaking male with ESRD on HD (MWF), type 2 diabetes mellitus, gout, essential hypertension, PVD, right BKA for limb ischemia April 2024, seizure disorder, HFeEF, essential hypertension, hyperlipidemia, chronic hypoxic on 2 L/min supplemental oxygen via nasal cannula and ROBERT on CPAP [place] [facility] [place] complaining of severe left foot pain that has been getting worse over the days associated with dark discoloration of the 1st and 2nd toe. GI consulted today for evaluation of abdominal pain. History obtained with the help of an [facility] [place] speech language pathologist travel, Zhanna. Pt reports 10 periumblical stinging abd pain starting around 11 am today. per pt the pain started when his blood sugar was low Pt denies association fo abd pain with eating. He complains of nausea, dry heaves and bloating. He reports that he has been passing small amounts of flatus and had a small bowel movement yesterday. Pt denied any fever, dizziness, nausea, vomiting or diarrhea. Pt admits to being a former tobacco smoker and denied ETOH abuse. Patient mentioned that he has been receiving hemodialysis through a right supraclavicular IV catheters. He also mentioned that the catheter was malfunctioning and he missed the last 20 minutes of hemodialysis. In the ED, he was found to have stable vital signs. Labs showed leukocytosis of 16.2 hemoglobin 9.5, MCV 74 platelets 224. There is no lactic acidosis. BUN is 34 and creatinine 5.39. Glucose 165. LFTs were normal except for elevated alk-phos. CRP is 14.74. Albumin is 3.4. Abdominal and chest x-ray showed cardiomegaly with stable right basilar effusions scaring, right IJ central line terminates in the right atrial and extensive vascular calcification. ECG showed sinus rhythm with premature supraventricular complex and no acute ischemic changes. ED tx: Morphine 8 mg IV total, Zofran 4 mg IV, Zosyn 4.5 mg IV, vancomycin 1 g IV 11/28/[address] SCAN SHOWED: 1. Predominant abnormality is mild diffuse dilatation of the small bowel, with a short segment of suspected distal small bowel wall thickening suggesting enteritis. Consider infectious and/or inflammatory or ischemic etiology. Low-grade small bowel obstruction is not excluded. 2. Moderate cardiomegaly. Chronic right lung base consolidation with chronic small effusion present. This may be on the basis of cicatrization atelectasis. 3. Mild wall thickening of the distal body and antrum of the stomach. Gastritis is favored. 4. Cirrhotic morphology of the liver. No definite suspicious liver lesion on this noncontrast exam. 5. Severe calcific atheromatous disease of the arterial structures. No aneurysm. 6. Numerous ancillary findings as discussed in the body of the report. Review of Systems 2 Review of Systems: Yes all other systems are reviewed and are negative Constitutional: Constitutional: Reports no additional constitutional complaints ENT: Reports Normal hearing present Cardiovascular: Cardiovascular: Denies chest pain, Denies chest pain at rest, Denies chest pain with activity and Denies pedal edema Respiratory: Respiratory: Denies cough Gastrointestinal: Gastrointestinal: Denies abdominal pain Musculoskeletal: Musculoskeletal: Denies abnormal gait, Denies muscle cramps and Denies radiating pain into limb Integumentary/Breasts: Skin/Breast: Denies skin ulcer and Denies wounds Neurologic: Reports Normal hearing present and Denies abnormal gait Psychiatric: Psychiatric: Reports no additional psychiatric complaints [facility] Past Medical History Medical History (Updated 11/28/24 @ 18:11 by Lindsay Carranza MD) Peripheral arterial disease Gangrene of hand Above knee amputation of right lower extremity Left ventricular systolic dysfunction (LVSD) PVD (peripheral vascular disease) Postop check Acute pericardial effusion Right sided weakness Dehiscence of wound Dry gangrene Cellulitis of right foot HFrEF (heart failure with reduced ejection fraction) Chronic combined systolic and diastolic CHF (congestive heart failure) Chronic pericardial effusion Arthritis Asthma Restless leg syndrome Acute on chronic systolic and diastolic heart failure, NYHA class 3 Anemia Occlusive thrombus Pulmonary edema ROBERT (obstructive sleep apnea) Type 2 diabetes mellitus Hyperlipidemia Hypertension A-V fistula ESRD on dialysis Falling Family History Family History Father No problems noted. Mother No problems noted. Surgical History Surgical History Status post creation of pericardial window Hx of right BKA History of transmetatarsal amputation of foot Status post transmetatarsal amputation of right foot Postop check History of surgery H/O colonoscopy Recurrent pleural effusion Pleural effusion on right (07/13/23) Social History Social History Household Members: Children Household Members Other:: son Housing: House Are you a primary skin care consultant to a significant other at home: No Do you presently have visiting nurse or other home services: Yes Alcohol intake: former Comment: 1:1 for SI Patient Tobacco Use Status: Former Tobacco user Tobacco use type: Cigarette Smoked in Last 30 Days: No Second Hand Smoke Exposure: No Use of substances other than those prescribed or required for medical reasons: No Currently Displaying Signs/Symptoms of Drug Intoxication Withdrawal: No Have you been hit, kicked, punched, or otherwise hurt by someone within the past year? 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 Meds Allergies Allergy/AdvReac Type Severity Reaction Status Date / Time Iodinated Contrast Media Allergy Severe Facial Verified 11/27/24 11:09 (Contrast Dye) Swelling hydralazine AdvReac Severe vasculitis Verified 11/27/24 11:09 Active Medications: Current Medications Acetaminophen (Acetaminophen 325 Mg Tablet) 975 mg PO Q6H PRN PRN Reason: Pain, Mild 1-3,fever,headache Last Admin: 11/28/24 14:21 Dose: 975 mg Albuterol Sulfate (Albuterol Sulfate 90 Mcg 8 Gm Inhaler) 2 puff INHALE Q4H PRN PRN Reason: Wheezing Albuterol/Ipratropium (Albuterol/Iprat 2.5/0.5mg 3 Ml Ampul.Neb) 3 ml INHALE QID PRN PRN Reason: Shortness of Breath Allopurinol (Allopurinol 100 Mg Tablet) 100 mg PO MOWEFR [facility] Amlodipine Besylate (Amlodipine Besylate 10 Mg Tablet) 10 mg PO DAILY [facility]; Protocol Last Admin: 11/28/24 08:24 Dose: 10 mg Aspirin (Aspirin Enteric Coated 81 Mg Tablet.Dr) 81 mg PO DAILY [facility] Last Admin: 11/28/24 08:24 Dose: 81 mg Calcium Carbonate (Calcium Carbonate 750 Mg Tab.Chew) 750 mg PO Q4H PRN PRN Reason: Heartburn Last Admin: 11/28/24 14:21 Dose: 750 mg Carvedilol (Carvedilol 6.25 Mg Tablet) 6.25 mg PO BID NASREEN; Protocol Last Admin: 11/28/24 08:24 Dose: 6.25 mg Dextrose (Dextrose 50 % 25 Gm/50 Ml Syringe) 25 gm IVPUSH Q15M PRN; Protocol PRN Reason: per Hypoglycemia Standing Ord. Last Admin: 11/28/24 03:34 Dose: 25 gm Doxazosin Mesylate (Doxazosin Mesylate 2 Mg Tablet) 4 mg PO BEDTIME [facility]; Protocol Last Admin: 11/27/24 20:41 Dose: 4 mg Fluticasone/Umeclidinium/Vilanterol (Fluticasone/Umeclidinium/Vilanterol 100/62.5/25 Blst.W.Dev) 1 puff INHALE RDAILY [facility] Last Admin: 11/28/24 08:06 Dose: 1 puff Glucose (Glucose Gel 15 Gm Gel..Gram.) 15 gm PO Q15M PRN; Protocol PRN Reason: per Hypoglycemia Standing Ord. Heparin Sodium (Porcine) (Heparin Sodium,Porcine 5,000 Unit/Ml Vial) 5,000 unit SUBCUT Q12H [facility] Last Admin: 11/28/24 08:26 Dose: 5,000 unit Piperacillin Sod/Tazobactam (Sod 2.25 gm/ Sodium Chloride) 50 mls @ 100 mls/hr IV Q6H [facility] Last Infusion: 11/28/24 13:28 Dose: Infused Vancomycin HCl 500 mg/ Sodium (Chloride) 110 mls @ 110 mls/hr IV MoWeFr [facility] Insulin Glargine (Insulin Glargine,Hum.Rec.Anlog 100 Unit/Ml 10 Ml Vial) 15 unit SUBCUT BEDTIME [facility] Insulin Human Lispro (Insulin Lispro 100 Unit/Ml 3 Ml Vial) 0 unit SUBCUT QIDACHS [facility]; Protocol Last Admin: 11/28/24 11:53 Dose: Not Given Levetiracetam (Levetiracetam 1,000 Mg Tablet) 1,000 mg PO BID [facility] Last Admin: 11/28/24 08:24 Dose: 1,000 mg Losartan Potassium (Losartan Potassium 25 Mg Tablet) 25 mg PO DAILY [facility]; Protocol Last Admin: 11/28/24 08:24 Dose: 25 mg Magnesium Hydroxide (Milk Of Magnesia 30 Ml Oral.Susp) 30 ml PO DAILY PRN PRN Reason: Constipation Last Admin: 11/27/24 22:26 Dose: 30 ml Melatonin (Melatonin 3 Mg Tablet) 6 mg PO BEDTIME PRN PRN Reason: Insomnia Non-Formulary Medication (Sucroferric Oxyhydroxide [Velphoro]) 500 mg PO TIDWM [facility] Oxycodone HCl (Oxycodone Hcl Immed Release 5 Mg Tablet) 5 mg PO Q4H PRN PRN Reason: Pain, Severe (Pain Scale 7-10) Last Admin: 11/28/24 12:31 Dose: 5 mg Pantoprazole Sodium (Pantoprazole Sodium 40 Mg/10 Ml Vial) 40 mg IVPUSH DAILY@0630 [facility] Pharmacy Consult (Consult Rx Vancomycin Dosing) 1 each MISCELLANE DAILY PRN PRN Reason: Consult order Pregabalin (Pregabalin 75 Mg Capsule) 75 mg PO DAILY [facility] Last Admin: 11/28/24 08:24 Dose: 75 mg Sodium Chloride (0.9 % Sodium Chloride Flush 3 Ml Syringe) [facility] Last Admin: 11/28/24 09:36 Dose: 3 ml Home Medications ?Medication ?Instructions ?Recorded ?Confirmed ?Last Taken ?Type allopurinol 100 mg tablet 100 mg PO MOWEFR 04/19/2211/25/24 History doxazosin 4 mg tablet 4 mg PO BEDTIME 04/19/2211/26/24 History omeprazole 20 mg capsule,delayed 20 mg PO DAILY@0630 0 04/19/22 11/27/24 11/26/24 History release pregabalin 75 mg capsule 75 mg PO DAILY 06/20/2311/0511/26/24 History aspirin 81 mg tablet,delayed 81 mg PO DAILY 04/05/24 0 11/27/24 11/26/24 History release fluticasone fur. 100 mcg-umeclid 1 inh inhalation FELICIA Y 04/05/24 11/27/24 11/26/24 History 62.5 mcg-vilant 25 mcg inhalat.powder (Trelegy Ellipta) losartan 25 mg tablet 25 mg PO DAILY 04/05/2411/0511/26/24 History insulin glargine 100 unit/mL (3 22 unit subcut BEDTIME 05/01/24 11/27/24 11/26/24 History mL) subcutaneous pen (Lantus Solostar U-100 Insulin) amlodipine 10 mg tablet 10 mg PO DAILY 05/26/2411/0511/26/24 History insulin lispro 100 unit/mL See Protocol subcut TIDAC P RN 05/26/24 11/27/24 08/21/24 History subcutaneous solution (Humalog Hyperglycemia U-100 Insulin) albuterol sulfate 90 mcg/actuation 2 puff inhalation Q 4H PRN wheezing 08/22/24 11/27/24 Unknown History aerosol inhaler (Ventolin HFA) carvedilol 6.25 mg tablet 6.25 mg PO BID 08/22/2411/0511/26/24 History ipratropium 0.5 mg-albuterol 3 mg 3 ml inhalation QID PRN Shortness 08/22/24 11/27/24 08/21/24 History (2.5 mg base)/3 mL nebulization Of Breath soln sucroferric oxyhydroxide 500 mg 500 mg PO TIDWM 11/27/24 11/26/24 History chewable tablet (Velphoro) Physical Exam 2 Vital Signs: Vital Signs: Last Vital Signs Temp 98.6 F 11/28/24 03:25 Pulse 64 11/28/24 08:09 Resp 16 11/28/24 08:09 BP 139/67 11/28/24 07:37 Pulse Ox 98 11/28/24 07:37 O2 Del Method Nasal Cannula 11/28/24 07:37 O2 Flow Rate 2 11/28/24 07:37 BMI result Body Mass Index 25.0 Const: General: in distress Nutritional Appearance: average body habitus Orientation/consciousness: patient oriented x3 Limitations: language barrier HEENT: Head: Yes normal to inspection Ears: hearing grossly normal bilaterally Eyes: Sclerae: sclerae normal Pupils: Equal, round and reactive pupils present Neck: Neck: Yes normal visual inspection Chest: Chest palpation & inspection: normal inspection of the chest Resp: Effort & Inspection: normal respiratory effort Auscultation: clear to auscultation bilaterally Cardio: Palpation: normal PMI Rate: regular rate Rhythm: regular rhythm Heart sounds: S1 normal heart sound present, S2 normal heart sound present and no murmurs GI: Palpation (GI): Soft to palpation, Tenderness to palpation present (GI) (Moderate diffuse abdominal tenderness) and No hepatosplenomegaly present A uscultation: normal bowel sounds Rectal Exam - Male: Yes deferred Skin: General skin exam: no rashes or lesions noted Neuro: General: patient oriented x3, gait normal and moves all extremities Cranial nerves: Yes Equal, round and reactive pupils present and Yes Normal hearing present Extrem: General: Yes other (Status post right BKA) Psych: Appearance: grossly normal Mental Status: mental status grossly normal Results Labs 12/04/24 07:40 12/04/24 07:40 Labs: Short CBC 11/28/24 Range/Units 11:19 WBC 19.6 H (4.8-10.8) X10*3/uL Hgb 11.1 L (14.0-18.0) g/dl Hct 35.4 L (42.0-52.0) % Plt Count TNP BMP 11/28/24 12:12 Sodium 140 Potassium 5.6 H D Chloride 100 Carbon Dioxide 27 BUN 47 H Creatinine 6.73 H* Calcium 8.2 L Liver Function 11/28/24 Range/Units 12:12 Total Bilirubin 0.4 (0.0-1.0) mg/dL Direct Bilirubin 0.2 (0.0-0.5) mg/dL AST 20 (5-37) U/L ALT < 6 (0-40) U/L Alkaline Phosphatase 104 (39-117) U/L Albumin 3.3 L (3.5-5.0) g/dL Microbiology Microbiology Results: Microbiology 11/27/24 12:20 Blood - Venous Blood Culture - Preliminary No growth after 24 hours. 11/27/24 12:20 Blood - Venous Blood Culture - Preliminary No growth after 24 hours. Assessment and Plan (1) Abdominal pain: Status: Acute Plan 69 year old Irish-speaking male with ESRD on HD (MWF), type 2 diabetes mellitus, gout, essential hypertension, PVD, right BKA for limb ischemia April 2024, seizure disorder, HFeEF, essential hypertension, hyperlipidemia, chronic hypoxic on 2 L/min supplemental oxygen via nasal cannula and ROBERT on CPAP [place] [facility] [place] complaining of severe left foot pain. GI consulted today for evaluation of abdominal pain. Abdominal and chest x-ray showed cardiomegaly with stable right basilar effusions scaring, right IJ central line terminates in the right atrial and extensive vascular calcification. Abdominal CT scan showed mild diffuse dilation of the small bowel with short- segment of suspected distal small bowel wall thickening suggesting enteritis. Severe calcific atheromatous disease of the arterial structures was noted on the CT scan. Pt is at high risk of small bowel ischemia. Changes on Abd CT scan can be due to gastrointestinal infection or ileus RECOMMENDATIONS: 1. Check lactic acid and duplex US to rule out SMA stenosis. 2. NPO with bowel rest and NG suction 3. Serial abdominal exam 5. FU KUB in the am 12/02/24 UGISBFT SHOWED: Mildly dilated multiple small bowel loops essentially jejunal and proximal radial loops. There is normal passage of small bowel forms a distended stomach prominent small bowel loops into the colon and rectum. The findings are suspicious for ileus nonspecific small bowel ileus. No site of obstruction seen. Procedures Date of Service Date of Service: 12/04/24
[2024-11-28 16:00] VITALS: BP 117/63; PULSE 71; RESP 18; TEMP 36.7; O2SAT 92
--- NOTE | 2024-11-28 16:13 | P.CONGS_ITS ---
History of Present Illness Consult details Consult date: 11/28/24 <Karthikeyan Huerta PA-C - Last Filed: 11/28/24 16:49> Reason for consult: abdominal pain (SBO on Ct scan) <Karthikeyan Huerta PA-C - Last Filed: 11/28/24 16:49> Narrative: 69 year old male with multiple comorbidities including PVD s/p right transmetacarpal amputation (2nd-5th digits) and right BKA, ESRD on hemodialysis admitted for left foot wound, seen in consult for abdominal pain with possible SBO on CT scan. Patient states he began having abdominal pain this morning which has gotten worse throughout the day. He reports associated nausea and dry heaving. He feels bloated. He reports that he has been passing small amounts of flatus. Last bowel movement was yesterday, small. CT scan this morning showing mild diffuse dilation of the small bowel, with short segment of suspected distal bowel wall thickening suggesting enteritis. There is no focal transition point noted. There is also mild wall thickening of the distal body and antrum of the stomach. The stomach appears dilated. Per radiologist, the findings are suggestive of gastroenteritis but cannot rule out SBO. Labs today showing leukocytosis 19.6, hyperkalemia, 5.6, creatinine 6.73. surgical history significant for pericardial window, states that the multiple scars on his abdomen are from hemodialysis. <Karthikeyan Huerta PA-C - Last Filed: 11/28/24 16:49> [facility] Past Medical History Medical History: Medical History (Updated 11/28/24 @ 18:11 by Lindsay Carranza MD) Peripheral arterial disease Gangrene of hand Above knee amputation of right lower extremity Left ventricular systolic dysfunction (LVSD) PVD (peripheral vascular disease) Postop check Acute pericardial effusion Right sided weakness Dehiscence of wound Dry gangrene Cellulitis of right foot HFrEF (heart failure with reduced ejection fraction) Chronic combined systolic and diastolic CHF (congestive heart failure) Chronic pericardial effusion Arthritis Asthma Restless leg syndrome Acute on chronic systolic and diastolic heart failure, NYHA class 3 Anemia Occlusive thrombus Pulmonary edema ROBERT (obstructive sleep apnea) Type 2 diabetes mellitus Hyperlipidemia Hypertension A-V fistula ESRD on dialysis Falling <Karthikeyan Huerta PA-C - Last Filed: 11/28/24 16:49> Family History Family History: Family History Father No problems noted. Mother No problems noted. <Karthikeyan Huerta PA-C - Last Filed: 11/28/24 16:49> Surgical History Surgical History: Surgical History Status post creation of pericardial window Hx of right BKA History of transmetatarsal amputation of foot Status post transmetatarsal amputation of right foot Postop check History of surgery H/O colonoscopy Recurrent pleural effusion Pleural effusion on right (07/13/23) <Karthikeyan Huerta PA-C - Last Filed: 11/28/24 16:49> Social History Social History: Social History Household Members: Children Household Members Other:: son Housing: House Are you a primary cattle care worker to a significant other at home: No Do you presently have visiting nurse or other home services: Yes Alcohol intake: former Comment: 1:1 for SI Patient Tobacco Use Status: Former Tobacco user Tobacco use type: Cigarette Smoked in Last 30 Days: No Second Hand Smoke Exposure: No Use of substances other than those prescribed or required for medical reasons: No Currently Displaying Signs/Symptoms of Drug Intoxication Withdrawal: No Have you been hit, kicked, punched, or otherwise hurt by someone within the past year? 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 <SOPHIE Styles Last Filed: 11/28/24 16:49> Meds Allergies/Adverse reactions: Allergies Allergy/AdvReac Type Severity Reaction Status Date / Time Iodinated Contrast Media Allergy Severe Facial Verified 11/27/24 11:09 (Contrast Dye) Swelling hydralazine AdvReac Severe vasculitis Verified 11/27/24 11:09 <SOPHIE Styles Last Filed: 11/28/24 16:49> Active Medications: Current Medications Acetaminophen (Acetaminophen 325 Mg Tablet) 975 mg PO Q6H PRN PRN Reason: Pain, Mild 1-3,fever,headache Last Admin: 11/28/24 14:21 Dose: 975 mg Albuterol Sulfate (Albuterol Sulfate 90 Mcg 8 Gm Inhaler) 2 puff INHALE Q4H PRN PRN Reason: Wheezing Albuterol/Ipratropium (Albuterol/Iprat 2.5/0.5mg 3 Ml Ampul.Neb) 3 ml INHALE QID PRN PRN Reason: Shortness of Breath Allopurinol (Allopurinol 100 Mg Tablet) 100 mg PO MOWEFR NASREEN Amlodipine Besylate (Amlodipine Besylate 10 Mg Tablet) 10 mg PO DAILY NASREEN; Protocol Last Admin: 11/28/24 08:24 Dose: 10 mg Aspirin (Aspirin Enteric Coated 81 Mg Tablet.Dr) 81 mg PO DAILY [facility] Last Admin: 11/28/24 08:24 Dose: 81 mg Calcium Carbonate (Calcium Carbonate 750 Mg Tab.Chew) 750 mg PO Q4H PRN PRN Reason: Heartburn Last Admin: 11/28/24 14:21 Dose: 750 mg Carvedilol (Carvedilol 6.25 Mg Tablet) 6.25 mg PO BID NASREEN; Protocol Last Admin: 11/28/24 08:24 Dose: 6.25 mg Dextrose (Dextrose 50 % 25 Gm/50 Ml Syringe) 25 gm IVPUSH Q15M PRN; Protocol PRN Reason: per Hypoglycemia Standing Ord. Last Admin: 11/28/24 03:34 Dose: 25 gm Doxazosin Mesylate (Doxazosin Mesylate 2 Mg Tablet) 4 mg PO BEDTIME NASREEN; Protocol Last Admin: 11/27/24 20:41 Dose: 4 mg Fluticasone/Umeclidinium/Vilanterol (Fluticasone/Umeclidinium/Vilanterol 100/62.5/25 Blst.W.Dev) 1 puff INHALE RDAILY NASREEN Last Admin: 11/28/24 08:06 Dose: 1 puff Glucose (Glucose Gel 15 Gm Gel..Gram.) 15 gm PO Q15M PRN; Protocol PRN Reason: per Hypoglycemia Standing Ord. Heparin Sodium (Porcine) (Heparin Sodium,Porcine 5,000 Unit/Ml Vial) 5,000 unit SUBCUT Q12H [facility] Last Admin: 11/28/24 08:26 Dose: 5,000 unit Piperacillin Sod/Tazobactam (Sod 2.25 gm/ Sodium Chloride) 50 mls @ 100 mls/hr IV Q6H [facility] Last Infusion: 11/28/24 13:28 Dose: Infused Vancomycin HCl 500 mg/ Sodium (Chloride) 110 mls @ 110 mls/hr IV MoWeFr [facility] Insulin Glargine (Insulin Glargine,Hum.Rec.Anlog 100 Unit/Ml 10 Ml Vial) 15 unit SUBCUT BEDTIME [facility] Insulin Human Lispro (Insulin Lispro 100 Unit/Ml 3 Ml Vial) 0 unit SUBCUT QIDACHS [facility]; Protocol Last Admin: 11/28/24 11:53 Dose: Not Given Levetiracetam (Levetiracetam 1,000 Mg Tablet) 1,000 mg PO BID [facility] Last Admin: 11/28/24 08:24 Dose: 1,000 mg Losartan Potassium (Losartan Potassium 25 Mg Tablet) 25 mg PO DAILY [facility]; Protocol Last Admin: 11/28/24 08:24 Dose: 25 mg Magnesium Hydroxide (Milk Of Magnesia 30 Ml Oral.Susp) 30 ml PO DAILY PRN PRN Reason: Constipation Last Admin: 11/27/24 22:26 Dose: 30 ml Melatonin (Melatonin 3 Mg Tablet) 6 mg PO BEDTIME PRN PRN Reason: Insomnia Morphine Sulfate (Morphine Sulfate 2 Mg/Ml Cartridge) 2 mg IVPUSH Q3H PRN; Protocol PRN Reason: Pain, Severe (Pain Scale 7-10) Non-Formulary Medication (Sucroferric Oxyhydroxide [Velphoro]) 500 mg PO TIDWM [facility] Oxycodone HCl (Oxycodone Hcl Immed Release 5 Mg Tablet) 5 mg PO Q4H PRN PRN Reason: Pain, Severe (Pain Scale 7-10) Last Admin: 11/28/24 12:31 Dose: 5 mg Pantoprazole Sodium (Pantoprazole Sodium 40 Mg/10 Ml Vial) 40 mg IVPUSH DAILY@0630 [facility] Last Admin: 11/28/24 15:01 Dose: 40 mg Pharmacy Consult (Consult Rx Vancomycin Dosing) 1 each MISCELLANE DAILY PRN PRN Reason: Consult order Pregabalin (Pregabalin 75 Mg Capsule) 75 mg PO DAILY [facility] Last Admin: 11/28/24 08:24 Dose: 75 mg Sodium Chloride (0.9 % Sodium Chloride Flush 3 Ml Syringe) 3 ml IVFLUSH QSHIFT [facility] Last Admin: 11/28/24 09:36 Dose: 3 ml <Karthikeyan Huerta PA-C - Last Filed: 11/28/24 16:49> Home medications: Home Medications ?Medication ?Instructions ?Recorded ?Confirmed ?Last Taken ?Type allopurinol 100 mg tablet 100 mg PO MOWEFR 04/19/2211/25/24 History doxazosin 4 mg tablet 4 mg PO BEDTIME 04/19/2211/26/24 History omeprazole 20 mg capsule,delayed 20 mg PO DAILY@0630 0 04/19/22 11/27/24 11/26/24 History release pregabalin 75 mg capsule 75 mg PO DAILY 06/20/2311/0511/26/24 History aspirin 81 mg tablet,delayed 81 mg PO DAILY 04/05/24 0 11/27/24 11/26/24 History release fluticasone fur. 100 mcg-umeclid 1 inh inhalation FELICIA Y 04/05/24 11/27/24 11/26/24 History 62.5 mcg-vilant 25 mcg inhalat.powder (Trelegy Ellipta) losartan 25 mg tablet 25 mg PO DAILY 04/05/2411/0511/26/24 History insulin glargine 100 unit/mL (3 22 unit subcut BEDTIME 05/01/24 11/27/24 11/26/24 History mL) subcutaneous pen (Lantus Solostar U-100 Insulin) amlodipine 10 mg tablet 10 mg PO DAILY 05/26/2411/0511/26/24 History insulin lispro 100 unit/mL See Protocol subcut TIDAC P RN 05/26/24 11/27/24 08/21/24 History subcutaneous solution (Humalog Hyperglycemia U-100 Insulin) albuterol sulfate 90 mcg/actuation 2 puff inhalation Q 4H PRN wheezing 08/22/24 11/27/24 Unknown History aerosol inhaler (Ventolin HFA) carvedilol 6.25 mg tablet 6.25 mg PO BID 08/22/24 092 06/2811/26/24 History ipratropium 0.5 mg-albuterol 3 mg 3 ml inhalation QID PRN Shortness 08/22/24 11/27/24 08/21/24 History (2.5 mg base)/3 mL nebulization Of Breath soln sucroferric oxyhydroxide 500 mg 500 mg PO TIDWM 11/27/24 11/26/24 History chewable tablet (Velphoro) <Karthikeyan Huerta PA-C - Last Filed: 11/28/24 16:49> Physical Exam 2 Vital Signs: Vital Signs: Last Vital Signs Temp 98.1 F 11/28/24 16:00 Pulse 71 11/28/24 16:00 Resp 18 11/28/24 16:00 BP 117/63 11/28/24 16:00 Pulse Ox 92 11/28/24 16:00 O2 Del Method Room Air 11/28/24 16:00 O2 Flow Rate 2 11/28/24 07:37 BMI result Body Mass Index 25.0 <Karthikeyan Huerta PA-C - Last Filed: 11/28/24 16:49> Const: General: no acute distress; No comfortable <Karthikeyan Huerta PA-C - Last Filed: 11/28/24 16:49> Orientation/consciousness: patient oriented x3 <Karthikeyan Huerta PA-C - Last Filed: 11/28/24 16:49> GI: Inspection: Yes distended and Yes scar (multiple small scars throughout the abdomen, pt states from hemodialysis) <Karthikeyan Huerta PA-C - Last Filed: 11/28/24 16:49> Palpation (GI): Soft to palpation, Tenderness to palpation present (GI) (exquisitely tender to palpation throughout) and Guarding due to palpation present (GI) (voluntary) <SOPHIE Styles Last Filed: 11/28/24 16:49> Percussion: Yes normal to percussion <SOPHIE Styles Last Filed: 11/28/24 16:49> Auscultation: Absent bowel sounds (upper abdomen) and Hypoactive bowel sounds present (lower abdomen) <Karthikeyan Huerta PA-C - Last Filed: 11/28/24 16:49> Neuro: General: patient oriented x3 <Karthikeyan Huerta PA-C - Last Filed: 11/28/24 16:49> Extrem: Other: right high aka <Karthikeyan Huerta PA-C - Last Filed: 11/28/24 16:49> Results Labs Result diagrams: 11/28/24 11:19 11/28/24 12:12 <SOPHIE Styles Last Filed: 11/28/24 16:49> Labs: Abnormal lab results 11/27/24 11/27/24 11/28/24 Range/Units 16:27 20:06 03:32 WBC (4.8-10.8) X10*3/uL Hgb (14.0-18.0) g/dl Hct (42.0-52.0) % MCV (80.0-98.0) fL MCH (27.0-33.0) pg RDW (11.0-16.0) % Immature Gran % (Auto) (0.0-0.4) % Neut % (Auto) (45-73) % Lymph % (Auto) (20-40) % Lymph # (Auto) (1.2-4.9) X10*3/uL Abs Immat Gran (auto) (0.00-0.03) X10*3/uL Absolute Neuts (auto) (2.0-8.3) x10*3/uL Absolute Nucleated RBC (0.0-0.012) X10*3/uL Potassium (3.3-5.1) mmol/L BUN (9-16) mg/dL Creatinine (0.5-1.4) mg/dL POC Glucose 152 H 204 H 35 L* (60-115) mg/dL Calcium (8.4-10.2) mg/dL Albumin (3.5-5.0) g/dL 11/28/24 11/28/24 11/28/24 Range/Units 03:49 11:19 12:12 WBC 19.6 H (4.8-10.8) X10*3/uL Hgb 11.1 L (14.0-18.0) g/dl Hct 35.4 L (42.0-52.0) % MCV 75.2 L (80.0-98.0) fL MCH 23.6 L (27.0-33.0) pg RDW 17.9 H (11.0-16.0) % Immature Gran % (Auto) 0.9 H (0.0-0.4) % Neut % (Auto) 90.9 H (45-73) % Lymph % (Auto) 2.9 L (20-40) % Lymph # (Auto) 0.6 L (1.2-4.9) X10*3/uL Abs Immat Gran (auto) 0.18 H (0.00-0.03) X10*3/uL Absolute Neuts (auto) 17.8 H (2.0-8.3) x10*3/uL Absolute Nucleated RBC 0.040 H (0.0-0.012) X10*3/uL Potassium 5.6 H D (3.3-5.1) mmol/L BUN 47 H (9-16) mg/dL Creatinine 6.73 H* (0.5-1.4) mg/dL POC Glucose 137 H (60-115) mg/dL Calcium 8.2 L (8.4-10.2) mg/dL Albumin 3.3 L (3.5-5.0) g/dL Short CBC 11/28/24 Range/Units 11:19 WBC 19.6 H (4.8-10.8) X10*3/uL Hgb 11.1 L (14.0-18.0) g/dl Hct 35.4 L (42.0-52.0) % Plt Count TNP BMP 11/28/24 12:12 Sodium 140 Potassium 5.6 H D Chloride 100 Carbon Dioxide 27 BUN 47 H Creatinine 6.73 H* Calcium 8.2 L Liver Function 11/28/24 Range/Units 12:12 Total Bilirubin 0.4 (0.0-1.0) mg/dL Direct Bilirubin 0.2 (0.0-0.5) mg/dL AST 20 (5-37) U/L ALT < 6 (0-40) U/L Alkaline Phosphatase 104 (39-117) U/L Albumin 3.3 L (3.5-5.0) g/dL All other labs normal. <Karthikeyan Huerta PA-C - Last Filed: 11/28/24 16:49> Assessment and Plan (1) Ileus: Status: Acute <Karthikeyan Huerta PA-C - Last Filed: 11/28/24 16:49> 69-year-old male with multiple medical problems as above Had complain of abdominal pain so CAT scan was done showing dilatation of the small bowel diffusely with question of enteritis No obvious transition point NG tube was inserted Abdomen is soft and benign Overall picture seems to be more suggestive of ileus We will follow Seen and examined independently <Sonny Holder MD - Last Filed: 11/28/24 18:55> 69 year old male with multiple comorbidities including PVD s/p right transmetacarpal amputation (2nd-5th digits) and right BKA, ESRD on hemodialysis admitted for left foot wound, seen in consult for abdominal pain with possible SBO on imaging. He reports abdominal pain started this morning, worsening throughout the day. he has associated bloating, nausea and dry heaving, has not vomited yet. CT scan this morning showing mild diffuse dilation of the small bowel, with short segment of suspected distal bowel wall thickening suggesting enteritis. There is no focal transition point noted. There is also mild wall thickening of the distal body and antrum of the stomach. The stomach appears dilated. After reviewing the images, there is air in the colon which is more suggestive of ileus at this time. On exam there he is moderately distended, exquisitely tender throughout the abdomen with voluntary guarding in the epigastric and periumbilical areas. He had hypoactive bowel sounds in the lower abdomen and absent bowel sounds in the upper abdomen. We will treat this conservatively for now, with bowel rest, he is already NPO, will place NG tube, low intermittent suction. will need PO meds changed to IV, i notified the medicine team of this. Will continue to follow NG tube, low intermittent suction, will monitor output. NPO <Karthikeyan Huerta PA-C - Last Filed: 11/28/24 16:49> Procedures Date of Service Date of Service: 11/28/24 <Karthikeyan Huerta PA-C - Last Filed: 11/28/24 16:49> 11/28/24 <Sonny Holder MD - Last Filed: 11/28/24 18:55>
[2024-11-28 16:19] LABS: Glucose, Whole Blood 66 mg/dL (60-115)
--- NOTE | 2024-11-28 16:23 | PM.CNGS ---
History of Present Illness Consult details Consult date: 11/28/24 Reason for consult: wound care Narrative: 69-year-old gentleman well known to me for prior history of peripheral vascular disease. He has undergone right lower extremity amputation. In addition he has undergone right upper extremity digital amputation and only has a thumb. At the current time he had some foot pain in the left lower extremity with some gangrene but also complained of some abdominal pain. Was subsequently brought into the hospital for further workup. Review of Systems Review of Systems: Yes all other systems are reviewed and are negative Constitutional: Constitutional: Reports no additional constitutional complaints ENT: Reports Normal hearing present Cardiovascular: Cardiovascular: Denies chest pain, Denies chest pain at rest, Denies chest pain with activity and Denies pedal edema Respiratory: Respiratory: Denies cough Gastrointestinal: Gastrointestinal: Denies abdominal pain Musculoskeletal: Musculoskeletal: Denies abnormal gait, Denies muscle cramps and Denies radiating pain into limb Integumentary/Breasts: Skin/Breast: Denies skin ulcer and Denies wounds Neurologic: Reports Normal hearing present and Denies abnormal gait Psychiatric: Psychiatric: Reports no additional psychiatric complaints [facility] Past Medical History Medical History (Updated 11/28/24 @ 16:24 by Baltazar Cannon MD) Peripheral arterial disease Gangrene of hand Above knee amputation of right lower extremity Left ventricular systolic dysfunction (LVSD) PVD (peripheral vascular disease) Postop check Acute pericardial effusion Right sided weakness Dehiscence of wound Dry gangrene Cellulitis of right foot HFrEF (heart failure with reduced ejection fraction) Chronic combined systolic and diastolic CHF (congestive heart failure) Chronic pericardial effusion Arthritis Asthma Restless leg syndrome Acute on chronic systolic and diastolic heart failure, NYHA class 3 Anemia Occlusive thrombus Pulmonary edema ROBERT (obstructive sleep apnea) Type 2 diabetes mellitus Hyperlipidemia Hypertension A-V fistula ESRD on dialysis Falling Family History Family History Father No problems noted. Mother No problems noted. Surgical History Surgical History Status post creation of pericardial window Hx of right BKA History of transmetatarsal amputation of foot Status post transmetatarsal amputation of right foot Postop check History of surgery H/O colonoscopy Recurrent pleural effusion Pleural effusion on right (07/13/23) Social History Social History Household Members: Children Household Members Other:: son Housing: House Are you a primary care team coordinator scheduler to a significant other at home: No Do you presently have visiting nurse or other home services: Yes Alcohol intake: former Comment: 1:1 for SI Patient Tobacco Use Status: Former Tobacco user Tobacco use type: Cigarette Smoked in Last 30 Days: No Second Hand Smoke Exposure: No Use of substances other than those prescribed or required for medical reasons: No Currently Displaying Signs/Symptoms of Drug Intoxication Withdrawal: No Have you been hit, kicked, punched, or otherwise hurt by someone within the past year? 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 Meds Allergies Allergy/AdvReac Type Severity Reaction Status Date / Time Iodinated Contrast Media Allergy Severe Facial Verified 11/27/24 11:09 (Contrast Dye) Swelling hydralazine AdvReac Severe vasculitis Verified 11/27/24 11:09 Active Medications: Current Medications Acetaminophen (Acetaminophen 325 Mg Tablet) 975 mg PO Q6H PRN PRN Reason: Pain, Mild 1-3,fever,headache Last Admin: 11/28/24 14:21 Dose: 975 mg Albuterol Sulfate (Albuterol Sulfate 90 Mcg 8 Gm Inhaler) 2 puff INHALE Q4H PRN PRN Reason: Wheezing Albuterol/Ipratropium (Albuterol/Iprat 2.5/0.5mg 3 Ml Ampul.Neb) 3 ml INHALE QID PRN PRN Reason: Shortness of Breath Allopurinol (Allopurinol 100 Mg Tablet) 100 mg PO MOWEFR [facility] Amlodipine Besylate (Amlodipine Besylate 10 Mg Tablet) 10 mg PO DAILY [facility]; Protocol Last Admin: 11/28/24 08:24 Dose: 10 mg Aspirin (Aspirin Enteric Coated 81 Mg Tablet.Dr) 81 mg PO DAILY [facility] Last Admin: 11/28/24 08:24 Dose: 81 mg Calcium Carbonate (Calcium Carbonate 750 Mg Tab.Chew) 750 mg PO Q4H PRN PRN Reason: Heartburn Last Admin: 11/28/24 14:21 Dose: 750 mg Carvedilol (Carvedilol 6.25 Mg Tablet) 6.25 mg PO BID [facility]; Protocol Last Admin: 11/28/24 08:24 Dose: 6.25 mg Dextrose (Dextrose 50 % 25 Gm/50 Ml Syringe) 25 gm IVPUSH Q15M PRN; Protocol PRN Reason: per Hypoglycemia Standing Ord. Last Admin: 11/28/24 03:34 Dose: 25 gm Doxazosin Mesylate (Doxazosin Mesylate 2 Mg Tablet) 4 mg PO BEDTIME [facility]; Protocol Last Admin: 11/27/24 20:41 Dose: 4 mg Fluticasone/Umeclidinium/Vilanterol (Fluticasone/Umeclidinium/Vilanterol 100/62.5/25 Blst.W.Dev) 1 puff INHALE RDAILY [facility] Last Admin: 11/28/24 08:06 Dose: 1 puff Glucose (Glucose Gel 15 Gm Gel..Gram.) 15 gm PO Q15M PRN; Protocol PRN Reason: per Hypoglycemia Standing Ord. Heparin Sodium (Porcine) (Heparin Sodium,Porcine 5,000 Unit/Ml Vial) 5,000 unit SUBCUT Q12H [facility] Last Admin: 11/28/24 08:26 Dose: 5,000 unit Piperacillin Sod/Tazobactam (Sod 2.25 gm/ Sodium Chloride) 50 mls @ 100 mls/hr IV Q6H [facility] Last Infusion: 11/28/24 13:28 Dose: Infused Vancomycin HCl 500 mg/ Sodium (Chloride) 110 mls @ 110 mls/hr IV MoWeFr [facility] Insulin Glargine (Insulin Glargine,Hum.Rec.Anlog 100 Unit/Ml 10 Ml Vial) 15 unit SUBCUT BEDTIME [facility] Insulin Human Lispro (Insulin Lispro 100 Unit/Ml 3 Ml Vial) 0 unit SUBCUT QIDACHS [facility]; Protocol Last Admin: 11/28/24 11:53 Dose: Not Given Levetiracetam (Levetiracetam 1,000 Mg Tablet) 1,000 mg PO BID [facility] Last Admin: 11/28/24 08:24 Dose: 1,000 mg Losartan Potassium (Losartan Potassium 25 Mg Tablet) 25 mg PO DAILY [facility]; Protocol Last Admin: 11/28/24 08:24 Dose: 25 mg Magnesium Hydroxide (Milk Of Magnesia 30 Ml Oral.Susp) 30 ml PO DAILY PRN PRN Reason: Constipation Last Admin: 11/27/24 22:26 Dose: 30 ml Melatonin (Melatonin 3 Mg Tablet) 6 mg PO BEDTIME PRN PRN Reason: Insomnia Morphine Sulfate (Morphine Sulfate 2 Mg/Ml Cartridge) 2 mg IVPUSH Q3H PRN; Protocol PRN Reason: Pain, Severe (Pain Scale 7-10) Non-Formulary Medication (Sucroferric Oxyhydroxide [Velphoro]) 500 mg PO TIDWM [facility] Oxycodone HCl (Oxycodone Hcl Immed Release 5 Mg Tablet) 5 mg PO Q4H PRN PRN Reason: Pain, Severe (Pain Scale 7-10) Last Admin: 11/28/24 12:31 Dose: 5 mg Pantoprazole Sodium (Pantoprazole Sodium 40 Mg/10 Ml Vial) 40 mg IVPUSH DAILY@629 [facility] Last Admin: 11/28/24 15:01 Dose: 40 mg Pharmacy Consult (Consult Rx Vancomycin Dosing) 1 each MISCELLANE DAILY PRN PRN Reason: Consult order Pregabalin (Pregabalin 75 Mg Capsule) 75 mg PO DAILY [facility] Last Admin: 11/28/24 08:24 Dose: 75 mg Sodium Chloride (0.9 % Sodium Chloride Flush 3 Ml Syringe) 3 ml IVFLUSH [facility] Last Admin: 11/28/24 09:36 Dose: 3 ml Home Medications ?Medication ?Instructions ?Recorded ?Confirmed ?Last Taken ?Type allopurinol 100 mg tablet 100 mg PO MOWEFR 04/19/22 11/27/24 11/25/24 History doxazosin 4 mg tablet 4 mg PO BEDTIME 04/19/22 11/27/24 11/26/24 History omeprazole 20 mg capsule,delayed 20 mg PO DAILY@0630 04/19/22 11/27/24 11/26/24 History release pregabalin 75 mg capsule 75 mg PO DAILY 06/20/23 11/27/24 11/26/24 History aspirin 81 mg tablet,delayed 81 mg PO DAILY 04/05/24 11/27/24 11/26/24 History release fluticasone fur. 100 mcg-umeclid 1 inh inhalation DAILY 04/05/24 11/27/24 11/26/24 History 62.5 mcg-vilant 25 mcg inhalat.powder (Trelegy Ellipta) losartan 25 mg tablet 25 mg PO DAILY 04/05/24 11/27/24 11/26/24 History insulin glargine 100 unit/mL (3 22 unit subcut BEDTIME 05/01/24 11/27/24 11/26/24 History mL) subcutaneous pen (Lantus Solostar U-100 Insulin) amlodipine 10 mg tablet 10 mg PO DAILY 05/26/24 11/27/24 11/26/24 History insulin lispro 100 unit/mL See Protocol subcut TIDAC PRN 05/26/24 11/27/24 08/21/24 History subcutaneous solution (Humalog Hyperglycemia U-100 Insulin) albuterol sulfate 90 mcg/actuation 2 puff inhalation Q4H PRN wheezing 08/22/24 11/27/24 Unknown History aerosol inhaler (Ventolin HFA) carvedilol 6.25 mg tablet 6.25 mg PO BID 08/22/24 11/27/24 11/26/24 History ipratropium 0.5 mg-albuterol 3 mg 3 ml inhalation QID PRN Shortness 08/22/24 11/27/24 08/21/24 History (2.5 mg base)/3 mL nebulization Of Breath soln sucroferric oxyhydroxide 500 mg 500 mg PO TIDWM 08/22/24 11/27/24 11/26/24 History chewable tablet (Velphoro) Physical Exam Vital Signs: Vital Signs: Last Vital Signs Temp 98.1 F 11/28/24 16:00 Pulse 71 11/28/24 16:00 Resp 18 11/28/24 16:00 BP 117/63 11/28/24 16:00 Pulse Ox 92 11/28/24 16:00 O2 Del Method Room Air 11/28/24 16:00 O2 Flow Rate 2 11/28/24 07:37 BMI result Body Mass Index 25.0 Const: General: cooperative, healthy appearing and comfortable Orientation/consciousness: oriented to person, oriented to place and oriented to time HEENT: Head: Yes normal to inspection Neck: Neck: Yes normal visual inspection Carotids: no bruits Chest: Chest palpation & inspection: normal inspection of the chest Resp: Effort & Inspection: normal respiratory effort and able to speak in complete sentences Auscultation: clear to auscultation bilaterally, no crackles, no rales, no rhonchi and no wheezes Cardio: Rate: regular rate Rhythm: regular rhythm Heart sounds: S1 normal heart sound present and S2 normal heart sound present Bruits: no carotid bruits Peripheral pulses: Peripheral pulses 2+ throughout GI: Inspection: Yes normal to inspection Skin: Wounds: amputation site (Right leg amp healing well) and wounds noted (Left foot dry gangrene) Hair: normal Neuro: General: oriented to person, oriented to place and oriented to time Cranial nerves: Yes CN's II-XII intact bilaterally and Yes Normal hearing present Cognition (Neuro): normal cognition Motor exam (neuro): 5/5 motor strength present throughout Extrem: Other: venous exam: No significant superficial varicosities or spider telangiectasias, minimal edema General: No clubbing, No cyanosis and No edema Psych: Appearance: grossly normal Mental Status: mental status grossly normal Speech and movement: Normal speech and movement present Results Labs 11/28/24 11:19 11/28/24 12:12 Labs: Abnormal lab results 11/27/24 11/27/24 11/28/24 Range/Units 16:27 20:06 03:32 WBC (4.8-10.8) X10*3/uL Hgb (14.0-18.0) g/dl Hct (42.0-52.0) % MCV (80.0-98.0) fL MCH (27.0-33.0) pg RDW (11.0-16.0) % Immature Gran % (Auto) (0.0-0.4) % Neut % (Auto) (45-73) % Lymph % (Auto) (20-40) % Lymph # (Auto) (1.2-4.9) X10*3/uL Abs Immat Gran (auto) (0.00-0.03) X10*3/uL Absolute Neuts (auto) (2.0-8.3) x10*3/uL Absolute Nucleated RBC (0.0-0.012) X10*3/uL Potassium (3.3-5.1) mmol/L BUN (9-16) mg/dL Creatinine (0.5-1.4) mg/dL POC Glucose 152 H 204 H 35 L* (60-115) mg/dL Calcium (8.4-10.2) mg/dL Albumin (3.5-5.0) g/dL 11/28/24 11/28/24 11/28/24 Range/Units 03:49 11:19 12:12 WBC 19.6 H (4.8-10.8) X10*3/uL Hgb 11.1 L (14.0-18.0) g/dl Hct 35.4 L (42.0-52.0) % MCV 75.2 L (80.0-98.0) fL MCH 23.6 L (27.0-33.0) pg RDW 17.9 H (11.0-16.0) % Immature Gran % (Auto) 0.9 H (0.0-0.4) % Neut % (Auto) 90.9 H (45-73) % Lymph % (Auto) 2.9 L (20-40) % Lymph # (Auto) 0.6 L (1.2-4.9) X10*3/uL Abs Immat Gran (auto) 0.18 H (0.00-0.03) X10*3/uL Absolute Neuts (auto) 17.8 H (2.0-8.3) x10*3/uL Absolute Nucleated RBC 0.040 H (0.0-0.012) X10*3/uL Potassium 5.6 H D (3.3-5.1) mmol/L BUN 47 H (9-16) mg/dL Creatinine 6.73 H* (0.5-1.4) mg/dL POC Glucose 137 H (60-115) mg/dL Calcium 8.2 L (8.4-10.2) mg/dL Albumin 3.3 L (3.5-5.0) g/dL Short CBC 11/28/24 Range/Units 11:19 WBC 19.6 H (4.8-10.8) X10*3/uL Hgb 11.1 L (14.0-18.0) g/dl Hct 35.4 L (42.0-52.0) % Plt Count TNP BMP 11/28/24 12:12 Sodium 140 Potassium 5.6 H D Chloride 100 Carbon Dioxide 27 BUN 47 H Creatinine 6.73 H* Calcium 8.2 L Liver Function 11/28/24 Range/Units 12:12 Total Bilirubin 0.4 (0.0-1.0) mg/dL Direct Bilirubin 0.2 (0.0-0.5) mg/dL AST 20 (5-37) U/L ALT < 6 (0-40) U/L Alkaline Phosphatase 104 (39-117) U/L Albumin 3.3 L (3.5-5.0) g/dL All other labs normal. Assessment and Plan (1) Peripheral arterial disease: Status: Acute Plan In short patient has left lower extremity arterial disease. At the current time it does appear to be stable. He does have dry gangrene. Fear is should we intervene the level of amputation that may be required due to his overall arterial status. Would do pain control and manage him as conservatively as possible. Once again we will await arterial status. This was discussed all with his son who was at bedside. Procedures Date of Service Date of Service: 11/28/24
[2024-11-28] MEDS: Dextrose 5 % and Lactated Ring 1,000 ML 80 ML IVCONT (17:18)
[2024-11-28 18:13] LABS: Glucose, Whole Blood 149 mg/dL (60-115)
[2024-11-28 18:32] VITALS: RESP 18
--- NOTE | 2024-11-28 18:53 | PM.EVENT ---
Event Note Date of Service: 11/29/24 Event Note: Seen on evening rounds NG tube in place - output clear, not bilious Abdomen very soft, benign, guarding He does state that he has lower abdominal pain CAT scan reviewed - he has good amounts of the air distally into the colon No obvious transition point seen We will monitor output of the NG tube tonight Son at bedside Time Spent With Patient Time: Total time managing care of this patient today ____ minutes.
[2024-11-28 19:46] VITALS: BP 129/53; PULSE 70; RESP 18; TEMP 36.7; O2SAT 92
[2024-11-28 20:40] LABS: Glucose, Whole Blood 114 mg/dL (60-115)
[2024-11-29 04:00] VITALS: BP 135/63; PULSE 69; RESP 18; TEMP 36.8; O2SAT 92
[2024-11-29] MEDS: Dextrose 5 % and Lactated Ring 1,000 ML 80 ML IVCONT ×2 (05:12→20:31)
[2024-11-29 06:54] LABS: Hematocrit 32.1 % (42.0-52.0); Hemoglobin 9.8 g/dl (14.0-18.0); Mean Corpuscular HGB Conc 30.5 g/dl (31.0-36.0); Mean Corpuscular Hemoglobin 22.6 pg (27.0-33.0); Mean Corpuscular Volume 74.1 fL (80.0-98.0); NRBC Abs Auto 0.070 X10*3/uL (0.0-0.012); NRBC Pct Auto 0.4 /100WBC (0.0-0.2); Platelet Count 190 X10*3/uL (160-400); Red Blood Count 4.33 X10*6/uL (4.60-5.80); White Blood Count 18.9 X10*3/uL (4.8-10.8)
[2024-11-29 06:56] LABS: Anion Gap 21 (12-20); Blood Urea Nitrogen 51 mg/dL (9-16); Calcium 8.4 mg/dL (8.4-10.2); Carbon Dioxide 24 mmol/L (22-29); Chloride 99 mmol/L (96-108); Creatinine Clr Calc Pharmacy 8.3; Estimated Glomerular Filt Rate 7; Potassium 5.5 mmol/L (3.3-5.1); Sodium 138 mmol/L (135-145)
[2024-11-29] MEDS: Fluticasone/Umeclidinium/Vilanterol 100/62.5/25 BLST.W.DEV 1 PUFF INHALE (07:40)
[2024-11-29 07:41] VITALS: PULSE 69; RESP 18; O2SAT 92
[2024-11-29 07:43] LABS: Glucose, Whole Blood 91 mg/dL (60-115)
--- NOTE | 2024-11-29 07:50 | HO.PM.IMPN ---
Subjective Subjective Date of Service: 11/29/24 Interval History: seen and examined this morning follow up for foot gangrene NGT inserted yesterday d/t concern for sbo reporting some abd pain, no n/v, nothing from ngt Physical Exam Vital Signs: Vital Signs: Last Vital Signs Temp 98.3 F 11/29/24 04:00 Pulse 69 11/29/24 07:41 Resp 18 11/29/24 07:41 BP 135/63 11/29/24 04:00 Pulse Ox 92 11/29/24 04:00 O2 Del Method Room Air 11/29/24 04:00 O2 Flow Rate 2 11/28/24 07:37 BMI result Body Mass Index 25.0 Const: General: alert and awake Nutritional Appearance: average body habitus Orientation/consciousness: patient oriented x3 Resp: Effort & Inspection: normal respiratory effort, no respiratory distress and no use of accessory muscles Cardio: Rate: regular rate GI: Other: reporting pain even with soft palpation so unable to deeply palpate, but abdomen is soft, non-distended, no guarding or rigidity Inspection: No distended Palpation (GI): Soft to palpation Neuro: General: patient oriented x3, moves all extremities and CN's II-XI intact bilaterally Extrem: Other: left great toe necrotic; right hand s/p multiple finger amputations with clean/dry/dressing; s/p right AKA Objective Data Active Medications Acetaminophen (Acetaminophen 325 Mg Tablet) 975 mg PO Q6H PRN PRN Reason: Pain, Mild 1-3,fever,headache Last Admin: 11/28/24 14:21 Dose: 975 mg Documented By: SARIAH Albuterol Sulfate (Albuterol Sulfate 90 Mcg 8 Gm Inhaler) 2 puff INHALE Q4H PRN PRN Reason: Wheezing Albuterol/Ipratropium (Albuterol/Iprat 2.5/0.5mg 3 Ml Ampul.Neb) 3 ml INHALE QID PRN PRN Reason: Shortness of Breath Allopurinol (Allopurinol 100 Mg Tablet) 100 mg PO MOWEFR [facility] Amlodipine Besylate (Amlodipine Besylate 10 Mg Tablet) 10 mg PO DAILY [facility]; Protocol Last Admin: 11/28/24 08:24 Dose: 10 mg Documented By: DABKartik Aspirin (Aspirin Enteric Coated 81 Mg Tablet.) 81 mg PO DAILY [facility] Last Admin: 11/28/24 08:24 Dose: 81 mg Documented By: KUMAR Calcium Carbonate (Calcium Carbonate 750 Mg Tab.Chew) 750 mg PO Q4H PRN PRN Reason: Heartburn Last Admin: 11/28/24 14:21 Dose: 750 mg Documented By: SARIAH Carvedilol (Carvedilol 6.25 Mg Tablet) 6.25 mg PO BID [facility]; Protocol Last Admin: 11/28/24 21:10 Dose: 6.25 mg Documented By: BOZENA Dextrose (Dextrose 50 % 25 Gm/50 Ml Syringe) 25 gm IVPUSH Q15M PRN; Protocol PRN Reason: per Hypoglycemia Standing Ord. Last Admin: 11/28/24 17:09 Dose: 25 gm Documented By: SARIAH Doxazosin Mesylate (Doxazosin Mesylate 2 Mg Tablet) 4 mg PO BEDTIME [facility]; Protocol Last Admin: 11/28/24 21:10 Dose: 4 mg Documented By: BOZENA Fluticasone/Umeclidinium/Vilanterol (Fluticasone/Umeclidinium/Vilanterol 100/62.5/25 Blst.W.Dev) 1 puff INHALE RDAILY [facility] Last Admin: 11/29/24 07:40 Dose: 1 puff Documented By: JESSICA Glucose (Glucose Gel 15 Gm Gel..Gram.) 15 gm PO Q15M PRN; Protocol PRN Reason: per Hypoglycemia Standing Ord. Heparin Sodium (Porcine) (Heparin Sodium,Porcine 5,000 Unit/Ml Vial) 5,000 unit SUBCUT Q12H [facility] Last Admin: 11/28/24 21:09 Dose: 5,000 unit Documented By: BOZENA Piperacillin Sod/Tazobactam (Sod 2.25 gm/ Sodium Chloride) 50 mls @ 100 mls/hr IV Q6H [facility] Last Infusion: 11/29/24 07:21 Dose: Infused Documented By: FRANCISCO Vancomycin HCl 500 mg/ Sodium (Chloride) 110 mls @ 110 mls/hr IV MoWeFr [facility] Dextrose/Lactated Ringer's (D5lr) 1,000 mls @ 80 mls/hr IVCONT .[id number] [facility] Last Admin: 11/29/24 05:12 Dose: 80 mls/hr Documented By: BOZENA Insulin Glargine (Insulin Glargine,Hum.Rec.Anlog 100 Unit/Ml 10 Ml Vial) 15 unit SUBCUT BEDTIME [facility] On Hold: 11/28/24 21:00 Insulin Human Lispro (Insulin Lispro 100 Unit/Ml 3 Ml Vial) 0 unit SUBCUT QIDACHS [facility]; Protocol Last Admin: 11/28/24 20:42 Dose: Not Given Documented By: BOZENA Non-Admin Reason: No Insulin Coverage Levetiracetam (Levetiracetam 1,000 Mg Tablet) 1,000 mg PO BID [facility] Last Admin: 11/28/24 21:10 Dose: 1,000 mg Documented By: BOZENA Losartan Potassium (Losartan Potassium 25 Mg Tablet) 25 mg PO DAILY [facility]; Protocol Last Admin: 11/28/24 08:24 Dose: 25 mg Documented By: KUMAR Magnesium Hydroxide (Milk Of Magnesia 30 Ml Oral.Susp) 30 ml PO DAILY PRN PRN Reason: Constipation Last Admin: 11/27/24 22:26 Dose: 30 ml Documented By: LYSAndrea Melatonin (Melatonin 3 Mg Tablet) 6 mg PO BEDTIME PRN PRN Reason: Insomnia Morphine Sulfate (Morphine Sulfate 2 Mg/Ml Cartridge) 2 mg IVPUSH Q3H PRN; Protocol PRN Reason: Pain, Severe (Pain Scale 7-10) Last Admin: 11/29/24 04:01 Dose: 2 mg Documented By: BOZENA Non-Formulary Medication (Sucroferric Oxyhydroxide [Velphoro]) 500 mg PO TIDWM [facility] Oxycodone HCl (Oxycodone Hcl Immed Release 5 Mg Tablet) 5 mg PO Q4H PRN PRN Reason: Pain, Severe (Pain Scale 7-10) Last Admin: 11/28/24 12:31 Dose: 5 mg Documented By: SARIAH Pantoprazole Sodium (Pantoprazole Sodium 40 Mg/10 Ml Vial) 40 mg IVPUSH DAILY@0630 [facility] Last Admin: 11/29/24 05:39 Dose: 40 mg Documented By: BOZENA Pharmacy Consult (Consult Rx Vancomycin Dosing) 1 each MISCELLANE DAILY PRN PRN Reason: Consult order Pregabalin (Pregabalin 75 Mg Capsule) 75 mg PO DAILY [facility] Last Admin: 11/28/24 08:24 Dose: 75 mg Documented By: KUMAR Sodium Chloride (0.9 % Sodium Chloride Flush 3 Ml Syringe) 3 ml IVFLUSH QSHIFT [facility] Last Admin: 11/28/24 20:44 Dose: Not Given Documented By: BOZENA Non-Admin Reason: IV Running Labs 11/29/24 06:05 11/29/24 06:05 Labs: Laboratory Results - last 24 hr 11/28/24 11/28/24 11/28/24 11:19 11:38 12:12 MCV 75.2 L MCH 23.6 L MCHC 31.4 RDW 17.9 H Plt Count TNP MPV TNP Immature Gran % (Auto) 0.9 H Neut % (Auto) 90.9 H Lymph % (Auto) 2.9 L [place] % (Auto) 5.0 Eos % (Auto) 0.1 Baso % (Auto) 0.2 Lymph # (Auto) 0.6 L [place] # (Auto) 1.0 Eos # (Auto) 0.0 Baso # (Auto) 0.0 Abs Immat Gran (auto) 0.18 H Absolute Neuts (auto) 17.8 H Absolute Nucleated RBC 0.040 H Nucleated RBC % (auto) 0.2 Smear Tech's Comments VERIFIED Anion Gap 19 Estim Creat Clear Calc 9.1 Estimated GFR 8 POC Glucose 81 Random Glucose 74 Lactic Acid Calcium 8.2 L Magnesium 2.0 Total Bilirubin 0.4 Direct Bilirubin 0.2 AST 20 ALT < 6 Alkaline Phosphatase 104 Total Protein 6.9 Albumin 3.3 L 11/28/24 11/28/24 11/28/24 15:19 16:12 18:07 MCV MCH MCHC RDW Plt Count MPV Immature Gran % (Auto) Neut % (Auto) Lymph % (Auto) [place] % (Auto) Eos % (Auto) Baso % (Auto) Lymph # (Auto) [place] # (Auto) Eos # (Auto) Baso # (Auto) Abs Immat Gran (auto) Absolute Neuts (auto) Absolute Nucleated RBC Nucleated RBC % (auto) Smear Tech's Comments Anion Gap Estim Creat Clear Calc Estimated GFR POC Glucose 66 149 H Random Glucose Lactic Acid 1.1 Calcium Magnesium Total Bilirubin Direct Bilirubin AST ALT Alkaline Phosphatase Total Protein Albumin 11/28/24 11/29/24 11/29/24 20:37 06:05 07:39 MCV 74.1 L MCH 22.6 L MCHC 30.5 L RDW 17.3 H Plt Count 190 MPV Not Reportable Immature Gran % (Auto) Neut % (Auto) Lymph % (Auto) [place] % (Auto) Eos % (Auto) Baso % (Auto) Lymph # (Auto) [place] # (Auto) Eos # (Auto) Baso # (Auto) Abs Immat Gran (auto) Absolute Neuts (auto) Absolute Nucleated RBC 0.070 H Nucleated RBC % (auto) 0.4 H Smear Tech's Comments Anion Gap 21 H Estim Creat Clear Calc 8.3 Estimated GFR 7 POC Glucose 114 91 Random Glucose 97 Lactic Acid 1.1 Calcium 8.4 Magnesium Total Bilirubin Direct Bilirubin AST ALT Alkaline Phosphatase Total Protein Albumin Microbiology Microbiology Results: Microbiology 11/27/24 12:20 Blood Culture - Preliminary Blood - Venous No growth after 24 hours. 11/27/24 12:20 Blood Culture - Preliminary Blood - Venous No growth after 24 hours. Assessment and Plan (1) Gangrene due to arterial insufficiency: Status: Acute Plan This is a 69 y/o man with a PMHx significant for PVD s/p right transmetacarpal amputation (2nd-5th digits) and right BKA who presents with: Left first toe dry gangrene + 2nd toe dark discoloration likely ischemia; intractable pain. Leukocytosis and elevated CRP vancomycin and zosyn empirically Continue aspirin and atorvastatin Vascular surgery consult holding intervention at this time trend CBC abdominal pain nonspecific bowel gas pattern, concern for SBO abdomen soft, non-distended Surgery following: conservative management for now End-stage renal disease on hemodialysis; MWF. No hyperkalemia or acidosis. Had hemodialysis today. Patient mentioned that hemodialysis catheter is malfunctioning. nephrology consult for ongoing HD Type 2 diabetes mellitus. BG checks before meals at bedtime. SSI while NPO Diabetic neuropathy. Continue pregabalin. Essential hypertension. Continue losartan, amlodipine, doxazosin and carvedilol. Seizure disorder. Continue levetiracetam. Hyperlipidemia. Continue statin. Obstructive sleep apnea. Continue CPAP. Chronic hypoxic respiratory failure. Continue home oxygen 2 L/min via nasal cannula at night. Bronchodilator therapy as needed. Gout. Continue allopurinol. Code status: Full DVT prophylaxis: Heparin Requires ongoing inpatient stay for severe left 1st toe pain secondary to gangrene treatment and possible surgical intervention Quality Stroke Does the patient have a stroke diagnosis?: No VTE Prior VTE?: No VTE Risk Level:: Medical - moderate - high VTE Device Contraindication: Treatment Not Indicated VTE Drug Contraindication: N/A - Med Ordered
[2024-11-29 08:00] VITALS: BP 136/65; PULSE 74; RESP 16; TEMP 36.4; O2SAT 94
--- NOTE | 2024-11-29 08:02 | PM.PNGS ---
Subjective Subjective Date of Service: 11/29/24 <Karthikeyan Huerta PA-C - Last Filed: 11/29/24 08:10> 11/29/24 <Sonny Holder MD - Last Filed: 11/29/24 15:50> Interval history: NG tube in place, 600 cc since placement. Appears mostly clear, nonbilious. Passing small amounts of flatus, no bowel movement. Remains NPO. Still experiencing abdominal pain and nausea, although this is improved from yesterday <Karthikeyan Huerta PA-C - Last Filed: 11/29/24 08:10> Physical Exam Vital Signs: Vital Signs: Last Vital Signs Temp 98.3 F 11/29/24 04:00 Pulse 69 11/29/24 07:41 Resp 18 11/29/24 07:41 BP 135/63 11/29/24 04:00 Pulse Ox 92 11/29/24 04:00 O2 Del Method Room Air 11/29/24 04:00 O2 Flow Rate 2 11/28/24 07:37 BMI result Body Mass Index 25.0 <Karthikeyan Huerta PA-C - Last Filed: 11/29/24 08:10> Const: General: no acute distress; No comfortable <Karthikeyan Huerta PA-C - Last Filed: 11/29/24 08:10> Orientation/consciousness: patient oriented x3 <SOPHIE Styles Last Filed: 11/29/24 08:10> GI: Inspection: Yes distended (Mild) <Karthikeyan Huerta PA-C - Last Filed: 11/29/24 08:10> Palpation (GI): Soft to palpation, not firm, Tenderness to palpation present (GI) (Throughout, more tender on left) and Guarding due to palpation present (GI) (Voluntary) <Karthikeyan Huerta PA-C - Last Filed: 11/29/24 08:10> Percussion: Yes normal to percussion <SOPHIE Styles Last Filed: 11/29/24 08:10> Neuro: General: patient oriented x3 <SOPHIE Styles Last Filed: 11/29/24 08:10> Objective Data Active Medications Acetaminophen (Acetaminophen 325 Mg Tablet) 975 mg PO Q6H PRN PRN Reason: Pain, Mild 1-3,fever,headache Last Admin: 11/28/24 14:21 Dose: 975 mg Documented By: SARIAH Albuterol Sulfate (Albuterol Sulfate 90 Mcg 8 Gm Inhaler) 2 puff INHALE Q4H PRN PRN Reason: Wheezing Albuterol/Ipratropium (Albuterol/Iprat 2.5/0.5mg 3 Ml Ampul.Neb) 3 ml INHALE QID PRN PRN Reason: Shortness of Breath Allopurinol (Allopurinol 100 Mg Tablet) 100 mg PO MOWEFR [facility] Amlodipine Besylate (Amlodipine Besylate 10 Mg Tablet) 10 mg PO DAILY [facility]; Protocol Last Admin: 11/28/24 08:24 Dose: 10 mg Documented By: KUMAR Aspirin (Aspirin Enteric Coated 81 Mg Tablet.Dr) 81 mg PO DAILY [facility] Last Admin: 11/28/24 08:24 Dose: 81 mg Documented By: KUMAR Calcium Carbonate (Calcium Carbonate 750 Mg Tab.Chew) 750 mg PO Q4H PRN PRN Reason: Heartburn Last Admin: 11/28/24 14:21 Dose: 750 mg Documented By: SARIAH Carvedilol (Carvedilol 6.25 Mg Tablet) 6.25 mg PO BID [facility]; Protocol Last Admin: 11/28/24 21:10 Dose: 6.25 mg Documented By: BOZENA Dextrose (Dextrose 50 % 25 Gm/50 Ml Syringe) 25 gm IVPUSH Q15M PRN; Protocol PRN Reason: per Hypoglycemia Standing Ord. Last Admin: 11/28/24 17:09 Dose: 25 gm Documented By: SARIAH Doxazosin Mesylate (Doxazosin Mesylate 2 Mg Tablet) 4 mg PO BEDTIME [facility]; Protocol Last Admin: 11/28/24 21:10 Dose: 4 mg Documented By: BOZENA Fluticasone/Umeclidinium/Vilanterol (Fluticasone/Umeclidinium/Vilanterol 100/62.5/25 Blst.W.Dev) 1 puff INHALE RDAILY [facility] Last Admin: 11/29/24 07:40 Dose: 1 puff Documented By: JESSICA Glucose (Glucose Gel 15 Gm Gel..Gram.) 15 gm PO Q15M PRN; Protocol PRN Reason: per Hypoglycemia Standing Ord. Heparin Sodium (Porcine) (Heparin Sodium,Porcine 5,000 Unit/Ml Vial) 5,000 unit SUBCUT Q12H [facility] Last Admin: 11/28/24 21:09 Dose: 5,000 unit Documented By: BOZENA Piperacillin Sod/Tazobactam (Sod 2.25 gm/ Sodium Chloride) 50 mls @ 100 mls/hr IV Q6H [facility] Last Infusion: 11/29/24 07:21 Dose: Infused Documented By: FRANCISCO Vancomycin HCl 500 mg/ Sodium (Chloride) 110 mls @ 110 mls/hr IV MoWeFr [facility] Dextrose/Lactated Ringer's (D5lr) 1,000 mls @ 80 mls/hr IVCONT .[id number] [facility] Last Admin: 11/29/24 05:12 Dose: 80 mls/hr Documented By: BOZENA Insulin Glargine (Insulin Glargine,Hum.Rec.Anlog 100 Unit/Ml 10 Ml Vial) 15 unit SUBCUT BEDTIME [facility] On Hold: 11/28/24 21:00 Insulin Human Lispro (Insulin Lispro 100 Unit/Ml 3 Ml Vial) 0 unit SUBCUT QIDACHS [facility]; Protocol Last Admin: 11/28/24 20:42 Dose: Not Given Documented By: BOZENA Non-Admin Reason: No Insulin Coverage Levetiracetam (Levetiracetam 1,000 Mg Tablet) 1,000 mg PO BID [facility] Last Admin: 11/28/24 21:10 Dose: 1,000 mg Documented By: BOZENA Losartan Potassium (Losartan Potassium 25 Mg Tablet) 25 mg PO DAILY [facility]; Protocol Last Admin: 11/28/24 08:24 Dose: 25 mg Documented By: DABA Magnesium Hydroxide (Milk Of Magnesia 30 Ml Oral.Susp) 30 ml PO DAILY PRN PRN Reason: Constipation Last Admin: 11/27/24 22:26 Dose: 30 ml Documented By: LYSZ Melatonin (Melatonin 3 Mg Tablet) 6 mg PO BEDTIME PRN PRN Reason: Insomnia Morphine Sulfate (Morphine Sulfate 2 Mg/Ml Cartridge) 2 mg IVPUSH Q3H PRN; Protocol PRN Reason: Pain, Severe (Pain Scale 7-10) Last Admin: 11/29/24 04:01 Dose: 2 mg Documented By: BOZENA Non-Formulary Medication (Sucroferric Oxyhydroxide [Velphoro]) 500 mg PO TIDWM [facility] Oxycodone HCl (Oxycodone Hcl Immed Release 5 Mg Tablet) 5 mg PO Q4H PRN PRN Reason: Pain, Severe (Pain Scale 7-10) Last Admin: 11/28/24 12:31 Dose: 5 mg Documented By: SARIAH Pantoprazole Sodium (Pantoprazole Sodium 40 Mg/10 Ml Vial) 40 mg IVPUSH DAILY@0630 [facility] Last Admin: 11/29/24 05:39 Dose: 40 mg Documented By: BOZENA Pharmacy Consult (Consult Rx Vancomycin Dosing) 1 each MISCELLANE DAILY PRN PRN Reason: Consult order Pregabalin (Pregabalin 75 Mg Capsule) 75 mg PO DAILY [facility] Last Admin: 11/28/24 08:24 Dose: 75 mg Documented By: KUMAR Sodium Chloride (0.9 % Sodium Chloride Flush 3 Ml Syringe) 3 ml IVFLUSH QSHIFT [facility] Last Admin: 11/28/24 20:44 Dose: Not Given Documented By: BOZENA Non-Admin Reason: IV Running <Karthikeyan Huerta PA-C - Last Filed: 11/29/24 08:10> Labs CBC & Chem 7: 11/29/24 06:05 11/29/24 06:05 <Karthikeyan Huerta PA-C - Last Filed: 11/29/24 08:10> Labs: Laboratory Results - last 24 hr 11/28/24 11/28/24 11/28/24 11:19 11:38 12:12 MCV 75.2 L MCH 23.6 L MCHC 31.4 RDW 17.9 H Plt Count TNP MPV TNP Immature Gran % (Auto) 0.9 H Neut % (Auto) 90.9 H Lymph % (Auto) 2.9 L Hamilton % (Auto) 5.0 Eos % (Auto) 0.1 Baso % (Auto) 0.2 Lymph # (Auto) 0.6 L Hamilton # (Auto) 1.0 Eos # (Auto) 0.0 Baso # (Auto) 0.0 Abs Immat Gran (auto) 0.18 H Absolute Neuts (auto) 17.8 H Absolute Nucleated RBC 0.040 H Nucleated RBC % (auto) 0.2 Smear Tech's Comments VERIFIED Anion Gap 19 Estim Creat Clear Calc 9.1 Estimated GFR 8 POC Glucose 81 Random Glucose 74 Lactic Acid Calcium 8.2 L Magnesium 2.0 Total Bilirubin 0.4 Direct Bilirubin 0.2 AST 20 ALT < 6 Alkaline Phosphatase 104 Total Protein 6.9 Albumin 3.3 L 11/28/24 11/28/24 11/28/24 15:19 16:12 18:07 MCV MCH MCHC RDW Plt Count MPV Immature Gran % (Auto) Neut % (Auto) Lymph % (Auto) Hamilton % (Auto) Eos % (Auto) Baso % (Auto) Lymph # (Auto) Hamilton # (Auto) Eos # (Auto) Baso # (Auto) Abs Immat Gran (auto) Absolute Neuts (auto) Absolute Nucleated RBC Nucleated RBC % (auto) Smear Tech's Comments Anion Gap Estim Creat Clear Calc Estimated GFR POC Glucose 66 149 H Random Glucose Lactic Acid 1.1 Calcium Magnesium Total Bilirubin Direct Bilirubin AST ALT Alkaline Phosphatase Total Protein Albumin 11/28/24 11/29/24 11/29/24 20:37 06:05 07:39 MCV 74.1 L MCH 22.6 L MCHC 30.5 L RDW 17.3 H Plt Count 190 MPV Not Reportable Immature Gran % (Auto) Neut % (Auto) Lymph % (Auto) Hamilton % (Auto) Eos % (Auto) Baso % (Auto) Lymph # (Auto) Hamilton # (Auto) Eos # (Auto) Baso # (Auto) Abs Immat Gran (auto) Absolute Neuts (auto) Absolute Nucleated RBC 0.070 H Nucleated RBC % (auto) 0.4 H Smear Tech's Comments Anion Gap 21 H Estim Creat Clear Calc 8.3 Estimated GFR 7 POC Glucose 114 91 Random Glucose 97 Lactic Acid 1.1 Calcium 8.4 Magnesium Total Bilirubin Direct Bilirubin AST ALT Alkaline Phosphatase Total Protein Albumin <Karthikeyan Huerta PA-C - Last Filed: 11/29/24 08:10> Microbiology Microbiology Results: Microbiology 11/27/24 12:20 Blood Culture - Preliminary Blood - Venous No growth after 24 hours. 11/27/24 12:20 Blood Culture - Preliminary Blood - Venous No growth after 24 hours. <Karthikeyan Huerta PA-C - Last Filed: 11/29/24 08:10> Procedures Date of Service Date of Service: 11/29/24 <Karthikeyan Huerta PA-C - Last Filed: 11/29/24 08:10> 11/29/24 <Sonny Holder MD - Last Filed: 11/29/24 15:50> Progress Note: A&P Assessment and plan (1) Ileus: Status: Acute <Karthikeyan Huerta PA-C - Last Filed: 11/29/24 08:10> Assessment and Plan: Abdominal exam remains very benign He is passing flatus Seems to have had BMs yesterday Clinically not obstructed We will monitor NG tube output today Seen and examined independently <Sonny Holder MD - Last Filed: 11/29/24 15:50> Assessment and Plan: 69 year old male with multiple comorbidities including PVD s/p right transmetacarpal amputation (2nd-5th digits) and right BKA, ESRD on hemodialysis admitted for left foot wound, followed by surgery for likely ileus. Now with NG tube, ouput since placement 600 cc largely clear, nonbilious. It does feel a little bit improved since the NG tube was placed however still experiencing nausea lower abdominal pain. He is still passing flatus, has not had any additional bowel movements. On exam he is less distended today, abdomen soft tender mostly in the left-sided the abdomen, voluntary guarding. Keep NG tube for now, continue to monitor output NG tube maintenance NPO Serial abdominal exams <Karthikeyan Huerta PA-C - Last Filed: 11/29/24 08:10> Time Spent With Patient Time: Total time managing care of this patient today ____ minutes. <Karthikeyan Huerta PA-C - Last Filed: 11/29/24 08:10> Quality Stroke Does the patient have a stroke diagnosis?: No <Karthikeyan Huerta PA-C - Last Filed: 11/29/24 08:10> VTE Prior VTE?: No <Karthikeyan Huerta PA-C - Last Filed: 11/29/24 08:10> VTE Risk Level:: Medical - moderate - high <Karthikeyan Huerta PA-C - Last Filed: 11/29/24 08:10> VTE Device Contraindication: Treatment Not Indicated <Karthikeyan Huerta PA-C - Last Filed: 11/29/24 08:10> VTE Drug Contraindication: N/A - Med Ordered <Karthikeyan Huerta PA-C - Last Filed: 11/29/24 08:10>
--- NOTE | 2024-11-29 09:50 | P.PNNPD_ITS ---
Subjective Subjective Date of Service: 11/29/24 This patient was seen during dialysis. Interval history: Here with abdominal pain and left toe gangrene and ischemia, intractable pain. Following for management of ESRD on HD MWF (sees Dr Santana, [facility]) while hospitalized. Patient reports left lower quadrant abdominal pain and toe pain. Denies shortness of breath, chest pain, other new concerns. Physical Exam Vital Signs: Vital Signs: Last Vital Signs Temp 97.6 F 11/29/24 08:00 Pulse 74 11/29/24 08:00 Resp 16 11/29/24 08:00 BP 136/65 11/29/24 08:00 Pulse Ox 94 11/29/24 08:00 O2 Del Method Room Air 11/29/24 08:00 O2 Flow Rate 2 11/28/24 07:37 BMI result Body Mass Index 25.0 Const: General: no acute distress and tired appearing Resp: Effort & Inspection: normal respiratory effort and able to speak in complete sentences Auscultation: clear to auscultation bilaterally Cardio: Rate: regular rate Rhythm: regular rhythm Heart sounds: S1 normal heart sound present and S2 normal heart sound present GI: Palpation (GI): Soft to palpation and Tenderness to palpation present (GI) Skin: Wounds: wounds noted Extrem: General: No edema Assessment & Plan Assessment and plan (1) ESRD needing dialysis: Status: Acute Plan ESRD on HD MWF - diaylsis today. access: Right permcath appears euvolemic Hgb 9.8- no indication for procrit at this time phos is 7.1- continue velphoro 500mg TID with meals. Calcium 8.4. potassium mildly elevated at 5.5- no need for lokelma, dialysis today Blood pressures acceptable low potassium, phosphorous, and sodium diet fluid restriction 1.5L continue to monitor electrolytes renal function studies on dialysis days Discussed with Dr Rao Time Spent With Patient Time: Total time managing care of this patient today ____ minutes. Procedures Date of Service Date of Service: 11/29/24
[2024-11-29 11:29] LABS: Glucose, Whole Blood 69 mg/dL (60-115)
[2024-11-29 12:02] LABS: Glucose, Whole Blood 143 mg/dL (60-115)
--- NOTE | 2024-11-29 12:54 | MHC.CM.PN ---
EMR REVIEWED AND PER MD ROUNDS, PT IS NOT YET MEDICALLY CLEARED FOR DC. CM WILL CONTINUE TO FOLLOW. ASS HC [facility]NA UPDATED VIA [id number]
--- NOTE | 2024-11-29 13:11 | HO.VASCPN ---
Subjective Subjective Date of Service: 11/29/24 Patient reports: no new complaints and pain is less Interval history: Patient seen and examined while he was up in hemodialysis today. He appears to be doing significantly better. In general his pain has decreased. He continues to have this nonhealing left toe ulcer. Right hand appears to be doing better as well. Now for follow-up. Physical Exam Vital Signs: Vital Signs: Last Vital Signs Temp 97.6 F 11/29/24 08:00 Pulse 74 11/29/24 08:00 Resp 16 11/29/24 08:00 BP 136/65 11/29/24 08:00 Pulse Ox 94 11/29/24 08:00 O2 Del Method Room Air 11/29/24 08:00 O2 Flow Rate 2 11/28/24 07:37 BMI result Body Mass Index 25.0 Const: General: cooperative, healthy appearing and comfortable Orientation/consciousness: oriented to person, oriented to place and oriented to time HEENT: Head: Yes normal to inspection Neck: Neck: Yes normal visual inspection Carotids: no bruits Chest: Chest palpation & inspection: normal inspection of the chest Resp: Effort & Inspection: normal respiratory effort and able to speak in complete sentences Auscultation: clear to auscultation bilaterally, no crackles, no rales, no rhonchi and no wheezes Cardio: Rate: regular rate Rhythm: regular rhythm Heart sounds: S1 normal heart sound present and S2 normal heart sound present Bruits: no carotid bruits Peripheral pulses: Peripheral pulses 2+ throughout GI: Inspection: Yes normal to inspection Skin: Other: Left great toe gangrene Wounds: no wounds Hair: normal Neuro: General: oriented to person, oriented to place and oriented to time Cranial nerves: Yes CN's II-XII intact bilaterally and Yes Normal hearing present Cognition (Neuro): normal cognition Motor exam (neuro): 5/5 motor strength present throughout Extrem: Other: venous exam: No significant superficial varicosities or spider telangiectasias, minimal edema General: No clubbing, No cyanosis and No edema Psych: Appearance: grossly normal Mental Status: mental status grossly normal Speech and movement: Normal speech and movement present Progress Note: A&P Assessment and plan (1) Peripheral arterial disease: Status: Acute Assessment and Plan: In short appears to be doing relatively well with his left leg. Would continue medical workup in terms of his pain. Noninvasive testing was reviewed in his concerning for inflow disease. Again due to his overall status and multiple comorbidities would like to manage this as conservatively as possible. Would get his pain better under controlled and can schedule as an outpatient elective angiogram. Thank you for allowing us to assist in his care. If there are any questions or concerns please do not hesitate to contact us. Time Spent With Patient Time: Total time managing care of this patient today ____ minutes. Procedures Date of Service Date of Service: 11/29/24 Quality Stroke Does the patient have a stroke diagnosis?: No VTE Prior VTE?: No VTE Risk Level:: Medical - moderate - high VTE Device Contraindication: Treatment Not Indicated VTE Drug Contraindication: N/A - Med Ordered
--- NOTE | 2024-11-29 15:49 | PM.EVENT ---
Event Note Date of Service: 11/29/24 Event Note: Seen on afternoon rounds Ongoing dialysis Poor historian Abdomen is soft and benign Says he has some lower abdominal pain NG tube output very scanty past 4 hours We will DC NG tube May start on sips of clear liquids and advance slowly Continue current care by hospitalist service Time Spent With Patient Time: Total time managing care of this patient today ____ minutes.
[2024-11-29 16:00] VITALS: BP 156/94; RESP 18; TEMP 36.1; O2SAT 90
--- NOTE | 2024-11-29 16:15 | PC.NURSE ---
16:00 - Patient returned to unit from dialysis - order in place by Provider Bradley to discontinue NG tube - NG tube removed with ease.
[2024-11-29 16:24] LABS: Glucose, Whole Blood 103 mg/dL (60-115)
[2024-11-29] MEDS: oxyCODONE HCl Immed Release 5 MG TABLET PO (17:58)
[2024-11-29] MEDS: 0.9 % Sodium Chloride Flush 3 ML SYRINGE IVFLUSH (18:01)
--- NOTE | 2024-11-29 18:22 | HE.PHANOTE ---
RE: VANCO DOSING Trough post dialysis came back as 16.9 mg/L. Hold dose. Next dialysis is on monday12/02/24, trough is scheduled for 12/02/24@1800.
[2024-11-29 19:11] VITALS: BP 134/65; PULSE 85; RESP 18; TEMP 37.2; O2SAT 95
[2024-11-29 20:58] LABS: Glucose, Whole Blood 92 mg/dL (60-115)
--- NOTE | 2024-11-29 23:15 | PC.NURSE ---
2044 Pt had 10 beat vtach notified no new orders at this time.
[2024-11-30 03:41] VITALS: BP 126/62; PULSE 68; RESP 17; TEMP 36; O2SAT 96
[2024-11-30 07:27] VITALS: BP 145/70; PULSE 71; RESP 16; TEMP 36.3; O2SAT 95
[2024-11-30 07:48] LABS: Glucose, Whole Blood 90 mg/dL (60-115)
[2024-11-30 07:56] VITALS: PULSE 71; RESP 16; O2SAT 95
[2024-11-30] MEDS: Fluticasone/Umeclidinium/Vilanterol 100/62.5/25 BLST.W.DEV 1 PUFF INHALE (07:56)
[2024-11-30] MEDS: Aspirin Enteric Coated 81 MG TABLET.DR PO (08:23)
--- NOTE | 2024-11-30 08:49 | P.PNGS_ITS ---
Subjective Subjective Date of Service: 11/30/24 Interval history: Reports some abdominal pain especially in the left upper quadrant but denies nausea or vomiting. He is passing flatus but no BM. NG tube removed yesterday and started on clear liquids but reports not taking much. Physical Exam 2 Vital Signs: Vital Signs: Last Vital Signs Temp 97.4 F 11/30/24 07:27 Pulse 71 11/30/24 07:56 Resp 16 11/30/24 07:56 BP 145/70 H 11/30/24 07:27 Pulse Ox 95 11/30/24 07:27 O2 Del Method Nasal Cannula 11/30/24 07:27 O2 Flow Rate 1.5 11/30/24 07:27 BMI result Body Mass Index 25.0 Const: General: no acute distress; No comfortable O rientation/consciousness: patient oriented x3 GI: Inspection: Yes distended (Mild) Palpation (GI): Soft to palpation, Tenderness to palpation present (GI) in the LUQ; with no rebound tenderness, Guarding due to palpation present (GI) (Voluntary) and not rigid Percussion: Yes normal to percussion Rectal Exam - Male: Yes deferred Skin: General skin exam: dry skin Neuro: General: patient oriented x3 Objective Data Active Medications Acetaminophen (Acetaminophen 325 Mg Tablet) 975 mg PO Q6H PRN PRN Reason: Pain, Mild 1-3,fever,headache Last Admin: 11/28/24 14:21 Dose: 975 mg Documented By: SARIAH Albuterol Sulfate (Albuterol Sulfate 90 Mcg 8 Gm Inhaler) 2 puff INHALE Q4H PRN PRN Reason: Wheezing Albuterol/Ipratropium (Albuterol/Iprat 2.5/0.5mg 3 Ml Ampul.Neb) 3 ml INHALE QID PRN PRN Reason: Shortness of Breath Allopurinol (Allopurinol 100 Mg Tablet) 100 mg PO MOWEFR [facility] Last Admin: 11/29/24 08:21 Dose: Not Given Documented By: FRANCISCO Non-Admin Reason: NPO Amlodipine Besylate (Amlodipine Besylate 10 Mg Tablet) 10 mg PO DAILY [facility]; Protocol Last Admin: 11/30/24 08:23 Dose: 10 mg Documented By: DESTINY Aspirin (Aspirin Enteric Coated 81 Mg Tablet.) 81 mg PO DAILY [facility] Last Admin: 11/30/24 08:23 Dose: 81 mg Documented By: DESTINY Calcium Carbonate (Calcium Carbonate 750 Mg Tab.Chew) 750 mg PO Q4H PRN PRN Reason: Heartburn Last Admin: 11/28/24 14:21 Dose: 750 mg Documented By: SARIAH Carvedilol (Carvedilol 6.25 Mg Tablet) 6.25 mg PO BID [facility]; Protocol Last Admin: 11/30/24 08:23 Dose: 6.25 mg Documented By: DESTINY Dextrose (Dextrose 50 % 25 Gm/50 Ml Syringe) 25 gm IVPUSH Q15M PRN; Protocol PRN Reason: per Hypoglycemia Standing Ord. Last Admin: 11/29/24 11:38 Dose: 25 gm Documented By: FRANCISCO Doxazosin Mesylate (Doxazosin Mesylate 2 Mg Tablet) 4 mg PO BEDTIME [facility]; Protocol Last Admin: 11/29/24 20:33 Dose: 4 mg Documented By: DAVID Fluticasone/Umeclidinium/Vilanterol (Fluticasone/Umeclidinium/Vilanterol 100/62.5/25 Blst.W.Dev) 1 puff INHALE RDAILY [facility] Last Admin: 11/30/24 07:56 Dose: 1 puff Documented By: BEAR Glucose (Glucose Gel 15 Gm Gel..Gram.) 15 gm PO Q15M PRN; Protocol PRN Reason: per Hypoglycemia Standing Ord. Heparin Sodium (Porcine) (Heparin Sodium,Porcine 5,000 Unit/Ml Vial) 5,000 unit SUBCUT Q12H [facility] Last Admin: 11/30/24 08:24 Dose: 5,000 unit Documented By: DESTINY Heparin Sodium (Porcine) (Heparin Sodium,Porcine 5,000 Unit/Ml Vial) 5,000 unit INTRACATH MOWEFR@1645 [facility] Last Admin: 11/29/24 18:01 Dose: Not Given Documented By: JAGRUTI Non-Admin Reason: Given in Dialysis Piperacillin Sod/Tazobactam (Sod 2.25 gm/ Sodium Chloride) 50 mls @ 100 mls/hr IV Q6H [facility] Last Infusion: 11/30/24 06:41 Dose: Infused Documented By: DAVID Vancomycin HCl 500 mg/ Sodium (Chloride) 110 mls @ 110 mls/hr IV MoWeFr [facility] Dextrose/Lactated Ringer's (D5lr) 1,000 mls @ 80 mls/hr IVCONT .[id number] [facility] Last Admin: 11/29/24 20:31 Dose: 80 mls/hr Documented By: DAVID Insulin Glargine (Insulin Glargine,Hum.Rec.Anlog 100 Unit/Ml 10 Ml Vial) 15 unit SUBCUT BEDTIME [facility] On Hold: 11/28/24 21:00 Insulin Human Lispro (Insulin Lispro 100 Unit/Ml 3 Ml Vial) 0 unit SUBCUT QIDACHS [facility]; Protocol Last Admin: 11/30/24 08:13 Dose: Not Given Documented By: DESTINY Non-Admin Reason: No Insulin Coverage Levetiracetam (Levetiracetam 1,000 Mg Tablet) 1,000 mg PO BID [facility] Last Admin: 11/30/24 08:23 Dose: 1,000 mg Documented By: DESTINY Losartan Potassium (Losartan Potassium 25 Mg Tablet) 25 mg PO DAILY [facility]; Protocol Last Admin: 11/30/24 08:23 Dose: 25 mg Documented By: DESTINY Magnesium Hydroxide (Milk Of Magnesia 30 Ml Oral.Susp) 30 ml PO DAILY PRN PRN Reason: Constipation Last Admin: 11/27/24 22:26 Dose: 30 ml Documented By: MYLENE Melatonin (Melatonin 3 Mg Tablet) 6 mg PO BEDTIME PRN PRN Reason: Insomnia Morphine Sulfate (Morphine Sulfate 2 Mg/Ml Cartridge) 2 mg IVPUSH Q3H PRN; Protocol PRN Reason: Pain, Severe (Pain Scale 7-10) Last Admin: 11/29/24 22:50 Dose: 2 mg Documented By: DAVID Non-Formulary Medication (Sucroferric Oxyhydroxide [Velphoro]) 500 mg PO TIDWM [facility] Oxycodone HCl (Oxycodone Hcl Immed Release 5 Mg Tablet) 5 mg PO Q4H PRN PRN Reason: Pain, Severe (Pain Scale 7-10) Last Admin: 11/29/24 17:58 Dose: 5 mg Documented By: JAGRUTI Pantoprazole Sodium (Pantoprazole Sodium 40 Mg/10 Ml Vial) 40 mg IVPUSH DAILY@0630 [facility] Last Admin: 11/30/24 06:01 Dose: 40 mg Documented By: DAVID Pharmacy Consult (Consult Rx Vancomycin Dosing) 1 each MISCELLANE DAILY PRN PRN Reason: Consult order Pregabalin (Pregabalin 75 Mg Capsule) 75 mg PO DAILY [facility] Last Admin: 11/30/24 08:23 Dose: 75 mg Documented By: DESTINY Sodium Chloride (0.9 % Sodium Chloride Flush 3 Ml Syringe) 3 ml IVFLUSH QSHIFT [facility] Last Admin: 11/30/24 08:24 Dose: Not Given Documented By: DESTINY Non-Admin Reason: IV Running Labs 11/29/24 06:05 11/29/24 06:05 Labs: Laboratory Results - last 24 hr 11/29/24 11/29/24 11/29/24 11:26 11:58 16:17 POC Glucose 69 143 H 103 Random Vancomycin 11/29/24 11/29/24 11/30/24 17:44 20:37 07:25 POC Glucose 92 90 Random Vancomycin 16.9 Microbiology Microbiology Results: Microbiology 11/27/24 12:20 Blood Culture - Preliminary Blood - Venous No growth after 48 hours. 11/27/24 12:20 Blood Culture - Preliminary Blood - Venous No growth after 48 hours. Procedures Date of Service Date of Service: 11/30/24 Progress Note: A&P Assessment and plan (1) Ileus: Status: Acute Plan 69-year-old male with a history of PVD, s/p right transmetacarpal amputation (2nd-5th digits) and right BKA, ESRD on hemodialysis admitted for left foot wound, found to have possible ileus. A NG tube was placed but subsequently removed yesterday. Patient started on clear liquids yesterday. He is passing some flatus but denies a bowel movement. He denies any further nausea or vomiting. Overnight the patient does report some abdominal pain mainly left upper quadrant is noted to be tender in the left upper quadrant. He is mildly distended but otherwise soft without peritoneal signs. We will continue with clear liquids and monitor abdominal examination. Time Spent With Patient Time: Total time managing care of this patient today ____ minutes. Quality Stroke Does the patient have a stroke diagnosis?: No VTE Prior VTE?: No VTE Risk Level:: Medical - moderate - high VTE Device Contraindication: Treatment Not Indicated VTE Drug Contraindication: N/A - Med Ordered
[2024-11-30] MEDS: Dextrose 5 % and Lactated Ring 1,000 ML 80 ML IVCONT (09:20)
[2024-11-30] MEDS: Milk of Magnesia 30 ML ORAL.SUSP PO (09:40)
--- NOTE | 2024-11-30 10:32 | P.PNIM_ITS ---
Subjective Subjective Date of Service: 11/30/24 Interval History: seen and examined this morning follow up for foot gangrene NGT removed yesterday, abdominal pain is better Physical Exam 2 Vital Signs: Vital Signs: Last Vital Signs Temp 97.4 F 11/30/24 07:27 Pulse 71 11/30/24 07:56 Resp 16 11/30/24 07:56 BP 145/70 H 11/30/24 07:27 Pulse Ox 95 11/30/24 07:27 O2 Del Method Nasal Cannula 11/30/24 07:27 O2 Flow Rate 1.5 11/30/24 07:27 BMI result Body Mass Index 25.0 General: AO X 3, no acute distress Resp: CTA bilateral CVS: S1,S2,RRR GI: +BS, hs tenderness in LLq, no distention Skin: No rash Neuro: motor grossly intact Psych: appropriate affect Objective Data Active Medications Acetaminophen (Acetaminophen 325 Mg Tablet) 975 mg PO Q6H PRN PRN Reason: Pain, Mild 1-3,fever,headache Last Admin: 11/28/24 14:21 Dose: 975 mg Documented By: SARIAH Albuterol Sulfate (Albuterol Sulfate 90 Mcg 8 Gm Inhaler) 2 puff INHALE Q4H PRN PRN Reason: Wheezing Albuterol/Ipratropium (Albuterol/Iprat 2.5/0.5mg 3 Ml Ampul.Neb) 3 ml INHALE QID PRN PRN Reason: Shortness of Breath Allopurinol (Allopurinol 100 Mg Tablet) 100 mg PO MOWEFR [facility] Last Admin: 11/29/24 08:21 Dose: Not Given Documented By: FRANCISCO Non-Admin Reason: NPO Amlodipine Besylate (Amlodipine Besylate 10 Mg Tablet) 10 mg PO DAILY [facility]; Protocol Last Admin: 11/30/24 08:23 Dose: 10 mg Documented By: DESTINY Aspirin (Aspirin Enteric Coated 81 Mg Tablet.) 81 mg PO DAILY [facility] Last Admin: 11/30/24 08:23 Dose: 81 mg Documented By: DESTINY Calcium Carbonate (Calcium Carbonate 750 Mg Tab.Chew) 750 mg PO Q4H PRN PRN Reason: Heartburn Last Admin: 11/28/24 14:21 Dose: 750 mg Documented By: SARIAH Carvedilol (Carvedilol 6.25 Mg Tablet) 6.25 mg PO BID [facility]; Protocol Last Admin: 11/30/24 08:23 Dose: 6.25 mg Documented By: DESTINY Dextrose (Dextrose 50 % 25 Gm/50 Ml Syringe) 25 gm IVPUSH Q15M PRN; Protocol PRN Reason: per Hypoglycemia Standing Ord. Last Admin: 11/29/24 11:38 Dose: 25 gm Documented By: FRANCISCO Doxazosin Mesylate (Doxazosin Mesylate 2 Mg Tablet) 4 mg PO BEDTIME [facility]; Protocol Last Admin: 11/29/24 20:33 Dose: 4 mg Documented By: DAVID Fluticasone/Umeclidinium/Vilanterol (Fluticasone/Umeclidinium/Vilanterol 100/62.5/ Blst.W.Dev) 1 puff INHALE RDAILY [facility] Last Admin: 11/30/24 07:56 Dose: 1 puff Documented By: BEAR Glucose (Glucose Gel 15 Gm Gel..Gram.) 15 gm PO Q15M PRN; Protocol PRN Reason: per Hypoglycemia Standing Ord. Heparin Sodium (Porcine) (Heparin Sodium,Porcine 5,000 Unit/Ml Vial) 5,000 unit SUBCUT Q12H [facility] Last Admin: 11/30/24 08:24 Dose: 5,000 unit Documented By: DESTINY Heparin Sodium (Porcine) (Heparin Sodium,Porcine 5,000 Unit/Ml Vial) 5,000 unit INTRACATH MOWEFR@1645 [facility] Last Admin: 11/29/24 18:01 Dose: Not Given Documented By: JAGRUTI Non-Admin Reason: Given in Dialysis Piperacillin Sod/Tazobactam (Sod 2.25 gm/ Sodium Chloride) 50 mls @ 100 mls/hr IV Q6H [facility] Last Infusion: 11/30/24 06:41 Dose: Infused Documented By: DAVID Vancomycin HCl 500 mg/ Sodium (Chloride) 110 mls @ 110 mls/hr IV MoWeFr [facility] Dextrose/Lactated Ringer's (D5lr) 1,000 mls @ 80 mls/hr IVCONT .[id number] [facility] Last Admin: 11/30/24 09:20 Dose: 80 mls/hr Documented By: DESTINY Insulin Glargine (Insulin Glargine,Hum.Rec.Anlog 100 Unit/Ml 10 Ml Vial) 15 unit SUBCUT BEDTIME [facility] On Hold: 11/28/24 21:00 Insulin Human Lispro (Insulin Lispro 100 Unit/Ml 3 Ml Vial) 0 unit SUBCUT QIDACHS [facility]; Protocol Last Admin: 11/30/24 08:13 Dose: Not Given Documented By: DESTINY Non-Admin Reason: No Insulin Coverage Levetiracetam (Levetiracetam 1,000 Mg Tablet) 1,000 mg PO BID [facility] Last Admin: 11/30/24 08:23 Dose: 1,000 mg Documented By: DESTINY Losartan Potassium (Losartan Potassium 25 Mg Tablet) 25 mg PO DAILY [facility]; Protocol Last Admin: 11/30/24 08:23 Dose: 25 mg Documented By: DESTINY Magnesium Hydroxide (Milk Of Magnesia 30 Ml Oral.Susp) 30 ml PO DAILY PRN PRN Reason: Constipation Last Admin: 11/30/24 09:40 Dose: 30 ml Documented By: DESTINY Melatonin (Melatonin 3 Mg Tablet) 6 mg PO BEDTIME PRN PRN Reason: Insomnia Morphine Sulfate (Morphine Sulfate 2 Mg/Ml Cartridge) 2 mg IVPUSH Q3H PRN; Protocol PRN Reason: Pain, Severe (Pain Scale 7-10) Last Admin: 11/30/24 09:20 Dose: 2 mg Documented By: DESTINY Non-Formulary Medication (Sucroferric Oxyhydroxide [Velphoro]) 500 mg PO TIDWM [facility] Oxycodone HCl (Oxycodone Hcl Immed Release 5 Mg Tablet) 5 mg PO Q4H PRN PRN Reason: Pain, Severe (Pain Scale 7-10) Last Admin: 11/29/24 17:58 Dose: 5 mg Documented By: JAGRUTI Pantoprazole Sodium (Pantoprazole Sodium 40 Mg/10 Ml Vial) 40 mg IVPUSH DAILY@0630 [facility] Last Admin: 11/30/24 06:01 Dose: 40 mg Documented By: DAVID Pharmacy Consult (Consult Rx Vancomycin Dosing) 1 each MISCELLANE DAILY PRN PRN Reason: Consult order Pregabalin (Pregabalin 75 Mg Capsule) 75 mg PO DAILY [facility] Last Admin: 11/30/24 08:23 Dose: 75 mg Documented By: DESTINY Sodium Chloride (0.9 % Sodium Chloride Flush 3 Ml Syringe) 3 ml IVFLUSH QSHIFT [facility] Last Admin: 11/30/24 08:24 Dose: Not Given Documented By: DESTINY Non-Admin Reason: IV Running Labs 11/29/24 06:05 11/29/24 06:05 Labs: Laboratory Results - last 24 hr 11/29/24 11/29/24 11/29/24 11:26 11:58 16:17 POC Glucose 69 143 H 103 Random Vancomycin 11/29/24 11/29/24 11/30/24 17:44 20:37 07:25 POC Glucose 92 90 Random Vancomycin 16.9 Microbiology Microbiology Results: Microbiology 11/27/24 12:20 Blood Culture - Preliminary Blood - Venous No growth after 48 hours. 11/27/24 12:20 Blood Culture - Preliminary Blood - Venous No growth after 48 hours. Assessment and Plan (1) Gangrene due to arterial insufficiency: Status: Acute Plan This is a 69 y/o man with a PMHx significant for PVD s/p right transmetacarpal amputation (2nd-5th digits) and right BKA who presents with: Left first toe dry gangrene + 2nd toe dark discoloration likely ischemia; intractable pain. Leukocytosis and elevated CRP vancomycin and zosyn empirically Continue aspirin and atorvastatin Vascular surgery consult holding intervention at this time trend CBC abdominal pain nonspecific bowel gas pattern, concern for SBO abdomen soft, non-distended, NGT removed yesterday Surgery following: conservative management for now Liquid diet End-stage renal disease on hemodialysis; MWF. hyperkalemia, but got dialysis yesterday, check labs today nephrology consult for ongoing HD Type 2 diabetes mellitus. BG checks before meals at bedtime. SSI while NPO Diabetic neuropathy. Continue pregabalin. Essential hypertension. Continue losartan, amlodipine, doxazosin and carvedilol. Seizure disorder. Continue levetiracetam. Hyperlipidemia. Continue statin. Obstructive sleep apnea. Continue CPAP. Chronic hypoxic respiratory failure. Continue home oxygen 2 L/min via nasal cannula at night. Bronchodilator therapy as needed. Gout. Continue allopurinol. Code status: Full DVT prophylaxis: Heparin Requires ongoing inpatient stay for severe left 1st toe pain secondary to gangrene treatment and possible surgical intervention Quality Stroke Does the patient have a stroke diagnosis?: No VTE Prior VTE?: No VTE Risk Level:: Medical - moderate - high VTE Device Contraindication: Treatment Not Indicated VTE Drug Contraindication: N/A - Med Ordered
[2024-11-30 11:36] LABS: Glucose, Whole Blood 115 mg/dL (60-115)
[2024-11-30 12:12] LABS: Anion Gap 19 (12-20); Blood Urea Nitrogen 29 mg/dL (9-16); Calcium 8.8 mg/dL (8.4-10.2); Carbon Dioxide 24 mmol/L (22-29); Chloride 101 mmol/L (96-108); Creatinine Clr Calc Pharmacy 11.5; Estimated Glomerular Filt Rate 11; Potassium 4.8 mmol/L (3.3-5.1); Sodium 139 mmol/L (135-145)
[2024-11-30 15:27] VITALS: BP 124/57; PULSE 65; RESP 19; TEMP 36.8; O2SAT 97
[2024-11-30] MEDS: 0.9 % Sodium Chloride Flush 3 ML SYRINGE IVFLUSH (15:51)
[2024-11-30 16:09] LABS: Glucose, Whole Blood 154 mg/dL (60-115)
[2024-11-30 19:50] VITALS: BP 130/66; PULSE 62; RESP 19; TEMP 36.7; O2SAT 93
[2024-11-30 20:25] LABS: Glucose, Whole Blood 176 mg/dL (60-115)
[2024-12-01 04:00] VITALS: BP 134/58; PULSE 63; RESP 16; TEMP 36; O2SAT 99
[2024-12-01 07:32] VITALS: BP 140/68; PULSE 54; RESP 18; TEMP 36.2; O2SAT 100
[2024-12-01 07:43] LABS: Glucose, Whole Blood 131 mg/dL (60-115)
[2024-12-01] MEDS: Milk of Magnesia 30 ML ORAL.SUSP PO (07:59)
[2024-12-01] MEDS: 0.9 % Sodium Chloride Flush 3 ML SYRINGE IVFLUSH ×2 (07:59→18:04)
[2024-12-01] MEDS: Aspirin Enteric Coated 81 MG TABLET.DR PO (07:59)
--- NOTE | 2024-12-01 10:51 | HO.PM.IMPN ---
Subjective Subjective Date of Service: 12/01/24 Interval History: Still c/o some abdominal pain nausea and vomiting this morning going back NPO Physical Exam Vital Signs: Vital Signs: Last Vital Signs Temp 97.1 F 12/01/24 07:32 Pulse 54 12/01/24 07:32 Resp 18 12/01/24 07:32 BP 140/68 H 12/01/24 07:32 Pulse Ox 100 12/01/24 07:32 O2 Del Method Nasal Cannula 12/01/24 07:32 O2 Flow Rate 2.0 12/01/24 07:32 BMI result Body Mass Index 25.0 General: AO X 3, no acute distress Resp: CTA bilateral CVS: S1,S2,RRR GI: +BS, hs tenderness in LLq, no distention Skin: No rash Neuro: motor grossly intact Psych: appropriate affect Const: Other: General: AO X 3, no acute distress Resp: CTA bilateral CVS: S1,S2,RRR GI: +BS, NT, no distention Skin: No rash Neuro: motor grossly intact Psych: appropriate affect Objective Data Active Medications Acetaminophen (Acetaminophen 325 Mg Tablet) 975 mg PO Q6H PRN PRN Reason: Pain, Mild 1-3,fever,headache Last Admin: 11/28/24 14:21 Dose: 975 mg Documented By: SARIAH Albuterol Sulfate (Albuterol Sulfate 90 Mcg 8 Gm Inhaler) 2 puff INHALE Q4H PRN PRN Reason: Wheezing Albuterol/Ipratropium (Albuterol/Iprat 2.5/0.5mg 3 Ml Ampul.Neb) 3 ml INHALE QID PRN PRN Reason: Shortness of Breath Allopurinol (Allopurinol 100 Mg Tablet) 100 mg PO MOWEFR [facility] Last Admin: 11/29/24 08:21 Dose: Not Given Documented By: FRANCISCO Non-Admin Reason: NPO Amlodipine Besylate (Amlodipine Besylate 10 Mg Tablet) 10 mg PO DAILY [facility]; Protocol Last Admin: 12/01/24 07:58 Dose: 10 mg Documented By: RABIA Aspirin (Aspirin Enteric Coated 81 Mg Tablet.Dr) 81 mg PO DAILY [facility] Last Admin: 12/01/24 07:59 Dose: 81 mg Documented By: RABIA Calcium Carbonate (Calcium Carbonate 750 Mg Tab.Chew) 750 mg PO Q4H PRN PRN Reason: Heartburn Last Admin: 12/01/24 07:49 Dose: 750 mg Documented By: RABIA Carvedilol (Carvedilol 6.25 Mg Tablet) 6.25 mg PO BID [facility]; Protocol Last Admin: 12/01/24 07:59 Dose: 6.25 mg Documented By: RABIA Dextrose (Dextrose 50 % 25 Gm/50 Ml Syringe) 25 gm IVPUSH Q15M PRN; Protocol PRN Reason: per Hypoglycemia Standing Ord. Last Admin: 11/29/24 11:38 Dose: 25 gm Documented By: FRANCISCO Doxazosin Mesylate (Doxazosin Mesylate 2 Mg Tablet) 4 mg PO BEDTIME [facility]; Protocol Last Admin: 11/30/24 20:21 Dose: 4 mg Documented By: DAVID Fluticasone/Umeclidinium/Vilanterol (Fluticasone/Umeclidinium/Vilanterol 100/62.5/25 Blst.W.Dev) 1 puff INHALE RDAILY [facility] Last Admin: 12/01/24 07:43 Dose: Not Given Documented By: SHRUTHI Non-Admin Reason: Nausea Glucose (Glucose Gel 15 Gm Gel..Gram.) 15 gm PO Q15M PRN; Protocol PRN Reason: per Hypoglycemia Standing Ord. Heparin Sodium (Porcine) (Heparin Sodium,Porcine 5,000 Unit/Ml Vial) 5,000 unit SUBCUT Q12H [facility] Last Admin: 12/01/24 07:59 Dose: 5,000 unit Documented By: RABIA Heparin Sodium (Porcine) (Heparin Sodium,Porcine 5,000 Unit/Ml Vial) 5,000 unit INTRACATH MOWEFR@1645 [facility] Last Admin: 11/29/24 18:01 Dose: Not Given Documented By: JAGRUTI Non-Admin Reason: Given in Dialysis Piperacillin Sod/Tazobactam (Sod 2.25 gm/ Sodium Chloride) 50 mls @ 100 mls/hr IV Q6H [facility] Last Infusion: 12/01/24 06:43 Dose: Infused Documented By: DAVID Vancomycin HCl 500 mg/ Sodium (Chloride) 110 mls @ 110 mls/hr IV MoWeFr [facility] Insulin Glargine (Insulin Glargine,Hum.Rec.Anlog 100 Unit/Ml 10 Ml Vial) 15 unit SUBCUT BEDTIME [facility] On Hold: 11/28/24 21:00 Insulin Human Lispro (Insulin Lispro 100 Unit/Ml 3 Ml Vial) 0 unit SUBCUT QIDACHS [facility]; Protocol Last Admin: 12/01/24 07:51 Dose: Not Given Documented By: RABIA Non-Admin Reason: No Insulin Coverage Levetiracetam (Levetiracetam 1,000 Mg Tablet) 1,000 mg PO BID [facility] Last Admin: 12/01/24 07:58 Dose: 1,000 mg Documented By: RABIA Losartan Potassium (Losartan Potassium 25 Mg Tablet) 25 mg PO DAILY [facility]; Protocol Last Admin: 12/01/24 07:59 Dose: 25 mg Documented By: RABIA Magnesium Hydroxide (Milk Of Magnesia 30 Ml Oral.Susp) 30 ml PO DAILY PRN PRN Reason: Constipation Last Admin: 12/01/24 07:59 Dose: 30 ml Documented By: RABIA Melatonin (Melatonin 3 Mg Tablet) 6 mg PO BEDTIME PRN PRN Reason: Insomnia Morphine Sulfate (Morphine Sulfate 2 Mg/Ml Cartridge) 2 mg IVPUSH Q3H PRN; Protocol PRN Reason: Pain, Severe (Pain Scale 7-10) Last Admin: 11/30/24 15:49 Dose: 2 mg Documented By: DESTINY Non-Formulary Medication (Sucroferric Oxyhydroxide [Velphoro]) 500 mg PO TIDWM [facility] Ondansetron HCl (Ondansetron Hcl 4 Mg/2 Ml Vial) 4 mg IVPUSH Q8H PRN PRN Reason: Nausea and Vomiting Last Admin: 12/01/24 08:36 Dose: 4 mg Documented By: RABIA Oxycodone HCl (Oxycodone Hcl Immed Release 5 Mg Tablet) 5 mg PO Q4H PRN PRN Reason: Pain, Severe (Pain Scale 7-10) Last Admin: 11/29/24 17:58 Dose: 5 mg Documented By: JAGRUTI Pantoprazole Sodium (Pantoprazole Sodium 40 Mg/10 Ml Vial) 40 mg IVPUSH DAILY@0630 [facility] Last Admin: 12/01/24 06:03 Dose: 40 mg Documented By: DAVID Pharmacy Consult (Consult Rx Vancomycin Dosing) 1 each MISCELLANE DAILY PRN PRN Reason: Consult order Pregabalin (Pregabalin 75 Mg Capsule) 75 mg PO DAILY [facility] Last Admin: 12/01/24 07:59 Dose: 75 mg Documented By: RABIA Sodium Chloride (0.9 % Sodium Chloride Flush 3 Ml Syringe) 3 ml IVFLUSH QSHIFT [facility] Last Admin: 12/01/24 07:59 Dose: 3 ml Documented By: RABIA Labs 11/29/24 06:05 11/30/24 11:13 Labs: Laboratory Results - last 24 hr 11/30/24 11/30/24 11/30/24 11:13 11:24 11:31 Hold Purple Top SEE NOTE Anion Gap 19 Estim Creat Clear Calc 11.5 Estimated GFR 11 POC Glucose 115 Random Glucose 115 Calcium 8.8 11/30/24 11/30/24 12/01/24 16:03 20:21 07:34 Hold Purple Top Anion Gap Estim Creat Clear Calc Estimated GFR POC Glucose 154 H 176 H 131 H Random Glucose Calcium Microbiology Microbiology Results: Microbiology 11/27/24 12:20 Blood Culture - Preliminary Blood - Venous No growth after 48 hours. 11/27/24 12:20 Blood Culture - Preliminary Blood - Venous No growth after 48 hours. Assessment and Plan (1) Gangrene due to arterial insufficiency: Status: Acute Plan 69-year-old man with significant past medical history of: Peripheral vascular disease (PVD) with prior right transmetacarpal amputation (2nd?5th digits) and right below-knee amputation (BKA) End-stage renal disease (ESRD) on hemodialysis (MWF) Type 2 diabetes mellitus Diabetic neuropathy Hypertension Seizure disorder Hyperlipidemia Obstructive sleep apnea Chronic hypoxic respiratory failure Gout Active Issues: 1. Left Foot Ischemia and Gangrene Left first toe: dry gangrene; left second toe: dark discoloration, likely ischemic Intractable pain Leukocytosis and elevated CRP Empiric antibiotics: vancomycin and zosyn Continue aspirin and atorvastatin Vascular surgery consulted; intervention deferred for now Monitor CBC for trends 2. Abdominal Pain / Possible Small Bowel Obstruction (SBO) Nonspecific bowel gas pattern on imaging; concern for SBO Abdomen soft, non-distended; NGT removed yesterday still with N/V, KUB still suggest SBO, will get CT with contrast if ok with nephrology Surgery following; conservative management at this time hold liquid diet, npo, and discuss with surgery 3. End-Stage Renal Disease (ESRD) on Hemodialysis Hemodialysis on Monday, Monday, Monday Recent hyperkalemia, but received dialysis yesterday Check labs today Nephrology consulted for ongoing dialysis management 4. Type 2 Diabetes Mellitus Blood glucose checks before meals and at bedtime Sliding scale insulin while NPO 5. Diabetic Neuropathy Continue pregabalin 6. Hypertension Continue losartan, amlodipine, doxazosin, and carvedilol 7. Seizure Disorder Continue levetiracetam 8. Hyperlipidemia Continue statin therapy 9. Obstructive Sleep Apnea Continue CPAP at night 10. Chronic Hypoxic Respiratory Failure Continue home oxygen at 2 L/min via nasal cannula at night Bronchodilator therapy as needed 11. Gout Continue allopurinol Other Orders: Code status: Full DVT prophylaxis: Heparin Disposition: Requires ongoing inpatient care for management of severe left first toe pain due to gangrene, monitoring for infection, and possible surgical intervention. Plan to continue close monitoring and multidisciplinary management. Quality Stroke Does the patient have a stroke diagnosis?: No VTE Prior VTE?: No VTE Risk Level:: Medical - moderate - high VTE Device Contraindication: Treatment Not Indicated VTE Drug Contraindication: N/A - Med Ordered
[2024-12-01 11:53] LABS: Glucose, Whole Blood 148 mg/dL (60-115)
[2024-12-01 15:48] VITALS: BP 137/65; PULSE 59; RESP 18; TEMP 36.4; O2SAT 93
[2024-12-01 16:40] LABS: Glucose, Whole Blood 117 mg/dL (60-115)
[2024-12-01 20:00] VITALS: BP 146/67; PULSE 63; RESP 18; TEMP 36.3; O2SAT 91
[2024-12-01 20:22] LABS: Glucose, Whole Blood 107 mg/dL (60-115)
--- NOTE | 2024-12-01 20:58 | PC.NURSE ---
In morning administered AM PO meds to patient- patient then began complaining of increased nausea and abdominal pain. Pt preceded to vomit - unsure of what meds pt was able to hold down. Provider notified. KUB XR and CT scan ordered. Provider stated will reach back out so Gen sx due to results. NPO diet initiated again. Pt didnt have any more vomiting episodes but still complains of abd pain - prn morphine admin with good effect
[2024-12-02] VITALS (8 sets, daily range): BP systolic 118–170; BP diastolic 56–79; PULSE 61–74; RESP 16–18; TEMP 36.1–36.6; O2SAT 90–94
[2024-12-02] MEDS: 0.9 % Sodium Chloride Flush 3 ML SYRINGE IVFLUSH ×3 (01:34→20:03)
[2024-12-02] MEDS: Fluticasone/Umeclidinium/Vilanterol 100/62.5/25 BLST.W.DEV 1 PUFF INHALE (07:41)
[2024-12-02 07:57] LABS: Glucose, Whole Blood 87 mg/dL (60-115)
[2024-12-02] MEDS: Aspirin Enteric Coated 81 MG TABLET.DR PO (08:00)
--- NOTE | 2024-12-02 09:31 | P.PNGS_ITS ---
Subjective Subjective Date of Service: 12/02/24 <Karthikeyan Huerta PA-C - Last Filed: 12/02/24 10:58> 12/02/24 <Sonny Holder MD - Last Filed: 12/02/24 10:52> Interval history: Yesterday developed nausea or vomiting, was made NPO. Continues to complain of pain in the left side of the abdomen <Karthikeyan Huerta PA-C - Last Filed: 12/02/24 10:58> Physical Exam 2 Vital Signs: Vital Signs: Last Vital Signs Temp 97.9 F 12/02/24 07:39 Pulse 74 12/02/24 07:43 Resp 16 12/02/24 07:43 BP 170/71 H 12/02/24 07:39 Pulse Ox 93 12/02/24 07:39 O2 Del Method Room Air 12/02/24 07:39 O2 Flow Rate 2.0 12/01/24 15:48 BMI result Body Mass Index 25.0 <Karthikeyan Huerta PA-C - Last Filed: 12/02/24 10:58> Objective Data Active Medications Acetaminophen (Acetaminophen 325 Mg Tablet) 975 mg PO Q6H PRN PRN Reason: Pain, Mild 1-3,fever,headache Last Admin: 11/28/24 14:21 Dose: 975 mg Documented By: SARIAH Albuterol Sulfate (Albuterol Sulfate 90 Mcg 8 Gm Inhaler) 2 puff INHALE Q4H PRN PRN Reason: Wheezing Albuterol/Ipratropium (Albuterol/Iprat 2.5/0.5mg 3 Ml Ampul.Neb) 3 ml INHALE QID PRN PRN Reason: Shortness of Breath Allopurinol (Allopurinol 100 Mg Tablet) 100 mg PO MOWEFR [facility] Last Admin: 11/29/24 08:21 Dose: Not Given Documented By: FRANCISCO Non-Admin Reason: NPO Amlodipine Besylate (Amlodipine Besylate 10 Mg Tablet) 10 mg PO DAILY [facility]; Protocol Last Admin: 12/02/24 08:01 Dose: 10 mg Documented By: ERIC Aspirin (Aspirin Enteric Coated 81 Mg Tablet.Dr) 81 mg PO DAILY [facility] Last Admin: 12/01/24 07:59 Dose: 81 mg Documented By: RABIA Calcium Carbonate (Calcium Carbonate 750 Mg Tab.Chew) 750 mg PO Q4H PRN PRN Reason: Heartburn Last Admin: 12/01/24 07:49 Dose: 750 mg Documented By: RABIA Carvedilol (Carvedilol 6.25 Mg Tablet) 6.25 mg PO BID [facility]; Protocol Last Admin: 12/02/24 08:01 Dose: 6.25 mg Documented By: ERIC Dextrose (Dextrose 50 % 25 Gm/50 Ml Syringe) 25 gm IVPUSH Q15M PRN; Protocol PRN Reason: per Hypoglycemia Standing Ord. Last Admin: 11/29/24 11:38 Dose: 25 gm Documented By: FRANCISCO Doxazosin Mesylate (Doxazosin Mesylate 2 Mg Tablet) 4 mg PO BEDTIME [facility]; Protocol Last Admin: 12/01/24 19:38 Dose: Not Given Documented By: RABIA Non-Admin Reason: NPO Fluticasone/Umeclidinium/Vilanterol (Fluticasone/Umeclidinium/Vilanterol 100/62.5/25 Blst.W.Dev) 1 puff INHALE RDAILY [facility] Last Admin: 12/02/24 07:41 Dose: 1 puff Documented By: EVENS Glucose (Glucose Gel 15 Gm Gel..Gram.) 15 gm PO Q15M PRN; Protocol PRN Reason: per Hypoglycemia Standing Ord. Heparin Sodium (Porcine) (Heparin Sodium,Porcine 5,000 Unit/Ml Vial) 5,000 unit SUBCUT Q12H [facility] Last Admin: 12/02/24 08:05 Dose: 5,000 unit Documented By: ERIC Heparin Sodium (Porcine) (Heparin Sodium,Porcine 5,000 Unit/Ml Vial) 5,000 unit INTRACATH MOWEFR@1645 [facility] Last Admin: 11/29/24 18:01 Dose: Not Given Documented By: COLBURK Non-Admin Reason: Given in Dialysis Piperacillin Sod/Tazobactam (Sod 2.25 gm/ Sodium Chloride) 50 mls @ 100 mls/hr IV Q6H [facility] Last Infusion: 12/02/24 08:13 Dose: Infused Documented By: ERIC Vancomycin HCl 500 mg/ Sodium (Chloride) 110 mls @ 110 mls/hr IV MoWeFr [facility] Insulin Glargine (Insulin Glargine,Hum.Rec.Anlog 100 Unit/Ml 10 Ml Vial) 15 unit SUBCUT BEDTIME [facility] On Hold: 11/28/24 21:00 Insulin Human Lispro (Insulin Lispro 100 Unit/Ml 3 Ml Vial) 0 unit SUBCUT QIDACHS [facility]; Protocol Last Admin: 12/02/24 08:05 Dose: Not Given Documented By: ERIC Non-Admin Reason: No Insulin Coverage Levetiracetam (Levetiracetam 1,000 Mg Tablet) 1,000 mg PO BID [facility] Last Admin: 12/01/24 19:37 Dose: Not Given Documented By: RABIA Non-Admin Reason: NPO Losartan Potassium (Losartan Potassium 25 Mg Tablet) 25 mg PO DAILY [facility]; Protocol Last Admin: 12/02/24 08:01 Dose: 25 mg Documented By: ERIC Magnesium Hydroxide (Milk Of Magnesia 30 Ml Oral.Susp) 30 ml PO DAILY PRN PRN Reason: Constipation Last Admin: 12/01/24 07:59 Dose: 30 ml Documented By: RABIA Melatonin (Melatonin 3 Mg Tablet) 6 mg PO BEDTIME PRN PRN Reason: Insomnia Morphine Sulfate (Morphine Sulfate 2 Mg/Ml Cartridge) 2 mg IVPUSH Q3H PRN; Protocol PRN Reason: Pain, Severe (Pain Scale 7-10) Last Admin: 12/02/24 08:03 Dose: 2 mg Documented By: ERIC Non-Formulary Medication (Sucroferric Oxyhydroxide [Velphoro]) 500 mg PO TIDWM [facility] Ondansetron HCl (Ondansetron Hcl 4 Mg/2 Ml Vial) 4 mg IVPUSH Q8H PRN PRN Reason: Nausea and Vomiting Last Admin: 12/01/24 08:36 Dose: 4 mg Documented By: RABIA Oxycodone HCl (Oxycodone Hcl Immed Release 5 Mg Tablet) 5 mg PO Q4H PRN PRN Reason: Pain, Severe (Pain Scale 7-10) Last Admin: 11/29/24 17:58 Dose: 5 mg Documented By: JAGRUTI Pharmacy Consult (Consult Rx Vancomycin Dosing) 1 each MISCELLANE DAILY PRN PRN Reason: Consult order Pregabalin (Pregabalin 75 Mg Capsule) 75 mg PO DAILY [facility] Last Admin: 12/02/24 08:01 Dose: 75 mg Documented By: ERIC Sodium Chloride (0.9 % Sodium Chloride Flush 3 Ml Syringe) [facility] Last Admin: 12/02/24 01:34 Dose: 3 ml Documented By: BALDEMAR <Karthikeyan Huerta PA-C - Last Filed: 12/02/24 10:58> Labs CBC & Chem 7: 11/29/24 06:05 11/30/24 11:13 <Karthikeyan Huerta PA-C - Last Filed: 12/02/24 10:58> Labs: Laboratory Results - last 24 hr 12/01/24 12/01/24 12/01/24 11:48 16:35 20:11 POC Glucose 148 H 117 H 107 12/02/24 07:53 POC Glucose 87 <Karthikeyan Huerta PA-C - Last Filed: 12/02/24 10:58> Procedures Date of Service Date of Service: 12/02/24 <Karthikeyan Huerta PA-C - Last Filed: 12/02/24 10:58> 12/02/24 <Sonny Holder MD - Last Filed: 12/02/24 10:52> Progress Note: A&P Assessment and plan (1) Ileus: Status: Acute <Karthikeyan Huerta PA-C - Last Filed: 12/02/24 10:58> Assessment and Plan: Says he has been having episodes of the same pain, points to the epigastric area Passing flatus Abdomen is soft, benign, not distended Some tenderness in the epigastric area We will schedule for small bowel series with Gastrografin Seen and examined independently Currently in dialysis <Sonny Holder MD - Last Filed: 12/02/24 10:52> Assessment and Plan: 69 year old male with multiple comorbidities including PVD s/p right transmetacarpal amputation (2nd-5th digits) and right BKA, ESRD on hemodialysis admitted for left foot wound, followed by surgery for likely ileus. Now NPO due to developing nausea and vomiting yesterday. CT scan showing some dilated loops of bowel. There is some air in the colon, no obvious transition point. He is still passing small amounts of flatus, has not had any additional bowel movements. Complaining of pain on the left side of the abdomen. On exam abdomen tender in the left side of the abdomen Small-bowel follow-through with Gastrografin NPO Serial abdominal exams <Karthikeyan Huerta PA-C - Last Filed: 12/02/24 10:58> Time Spent With Patient Time: Total time managing care of this patient today ____ minutes. <Karthikeyan Huerta PA-C - Last Filed: 12/02/24 10:58> Quality Stroke Does the patient have a stroke diagnosis?: No <Karthikeyan Huerta PA-C - Last Filed: 12/02/24 10:58> VTE Prior VTE?: No <Karthikeyan Huerta PA-C - Last Filed: 12/02/24 10:58> VTE Risk Level:: Medical - moderate - high <Karthikeyan Huerta PA-C - Last Filed: 12/02/24 10:58> VTE Device Contraindication: Treatment Not Indicated <Karthikeyan Huerta PA-C - Last Filed: 12/02/24 10:58> VTE Drug Contraindication: N/A - Med Ordered <Karthikeyan Huerta PA-C - Last Filed: 12/02/24 10:58>
--- NOTE | 2024-12-02 09:46 | P.PNIM_ITS ---
Subjective Subjective Date of Service: 12/02/24 Interval History: Still c/o some abdominal pain, no nause or vomiting, she also has lot of pain in the foot. CT of abdomen yesterday showed SBO but no transition point, exam is beinging but has been NPO Physical Exam 2 Vital Signs: Vital Signs: Last Vital Signs Temp 97.9 F 12/02/24 07:39 Pulse 74 12/02/24 07:43 Resp 16 12/02/24 07:43 BP 170/71 H 12/02/24 07:39 Pulse Ox 93 12/02/24 07:39 O2 Del Method Room Air 12/02/24 07:39 O2 Flow Rate 2.0 12/01/24 15:48 BMI result Body Mass Index 25.0 General: AO X 3, no acute distress Resp: CTA bilateral CVS: S1,S2,RRR GI: +BS, hs tenderness in LLq, no distention Skin: No rash Neuro: motor grossly intact Psych: appropriate affect Const: Other: General: AO X 3, no acute distress Resp: CTA bilateral CVS: S1,S2,RRR GI: +BS, NT, no distention Skin: No rash Neuro: motor grossly intact Psych: appropriate affect Objective Data Active Medications Acetaminophen (Acetaminophen 325 Mg Tablet) 975 mg PO Q6H PRN PRN Reason: Pain, Mild 1-3,fever,headache Last Admin: 11/28/24 14:21 Dose: 975 mg Documented By: SARIAH Albuterol Sulfate (Albuterol Sulfate 90 Mcg 8 Gm Inhaler) 2 puff INHALE Q4H PRN PRN Reason: Wheezing Albuterol/Ipratropium (Albuterol/Iprat 2.5/0.5mg 3 Ml Ampul.Neb) 3 ml INHALE QID PRN PRN Reason: Shortness of Breath Allopurinol (Allopurinol 100 Mg Tablet) 100 mg PO MOWEFR [facility] Last Admin: 11/29/24 08:21 Dose: Not Given Documented By: FRANCISCO Non-Admin Reason: NPO Amlodipine Besylate (Amlodipine Besylate 10 Mg Tablet) 10 mg PO DAILY [facility]; Protocol Last Admin: 12/02/24 08:01 Dose: 10 mg Documented By: ERIC Aspirin (Aspirin Enteric Coated 81 Mg Tablet.) 81 mg PO DAILY [facility] Last Admin: 12/01/24 07:59 Dose: 81 mg Documented By: RABIA Calcium Carbonate (Calcium Carbonate 750 Mg Tab.Chew) 750 mg PO Q4H PRN PRN Reason: Heartburn Last Admin: 12/01/24 07:49 Dose: 750 mg Documented By: RABIA Carvedilol (Carvedilol 6.25 Mg Tablet) 6.25 mg PO BID [facility]; Protocol Last Admin: 12/02/24 08:01 Dose: 6.25 mg Documented By: ERIC Dextrose (Dextrose 50 % 25 Gm/50 Ml Syringe) 25 gm IVPUSH Q15M PRN; Protocol PRN Reason: per Hypoglycemia Standing Ord. Last Admin: 11/29/24 11:38 Dose: 25 gm Documented By: FRANCISCO Doxazosin Mesylate (Doxazosin Mesylate 2 Mg Tablet) 4 mg PO BEDTIME [facility]; Protocol Last Admin: 12/01/24 19:38 Dose: Not Given Documented By: RABAI Non-Admin Reason: NPO Fluticasone/Umeclidinium/Vilanterol (Fluticasone/Umeclidinium/Vilanterol 100/62.5/25 Blst.W.Dev) 1 puff INHALE RDAILY [facility] Last Admin: 12/02/24 07:41 Dose: 1 puff Documented By: EVENS Glucose (Glucose Gel 15 Gm Gel..Gram.) 15 gm PO Q15M PRN; Protocol PRN Reason: per Hypoglycemia Standing Ord. Heparin Sodium (Porcine) (Heparin Sodium,Porcine 5,000 Unit/Ml Vial) 5,000 unit SUBCUT Q12H [facility] Last Admin: 12/02/24 08:05 Dose: 5,000 unit Documented By: ERIC Heparin Sodium (Porcine) (Heparin Sodium,Porcine 5,000 Unit/Ml Vial) 5,000 unit INTRACATH MOWEFR@1645 [facility] Last Admin: 11/29/24 18:01 Dose: Not Given Documented By: JAGRUTI Non-Admin Reason: Given in Dialysis Piperacillin Sod/Tazobactam (Sod 2.25 gm/ Sodium Chloride) 50 mls @ 100 mls/hr IV Q6H [facility] Last Infusion: 12/02/24 08:13 Dose: Infused Documented By: ERIC Vancomycin HCl 500 mg/ Sodium (Chloride) 110 mls @ 110 mls/hr IV MoWeFr [facility] Insulin Glargine (Insulin Glargine,Hum.Rec.Anlog 100 Unit/Ml 10 Ml Vial) 15 unit SUBCUT BEDTIME [facility] On Hold: 11/28/24 21:00 Insulin Human Lispro (Insulin Lispro 100 Unit/Ml 3 Ml Vial) 0 unit SUBCUT QIDACHS [facility]; Protocol Last Admin: 12/02/24 08:05 Dose: Not Given Documented By: ERIC Non-Admin Reason: No Insulin Coverage Levetiracetam (Levetiracetam 1,000 Mg Tablet) 1,000 mg PO BID [facility] Last Admin: 12/01/24 19:37 Dose: Not Given Documented By: RABIA Non-Admin Reason: NPO Losartan Potassium (Losartan Potassium 25 Mg Tablet) 25 mg PO DAILY [facility]; Protocol Last Admin: 12/02/24 08:01 Dose: 25 mg Documented By: ERIC Magnesium Hydroxide (Milk Of Magnesia 30 Ml Oral.Susp) 30 ml PO DAILY PRN PRN Reason: Constipation Last Admin: 12/01/24 07:59 Dose: 30 ml Documented By: RABIA Melatonin (Melatonin 3 Mg Tablet) 6 mg PO BEDTIME PRN PRN Reason: Insomnia Morphine Sulfate (Morphine Sulfate 2 Mg/Ml Cartridge) 2 mg IVPUSH Q3H PRN; Protocol PRN Reason: Pain, Severe (Pain Scale 7-10) Last Admin: 12/02/24 08:03 Dose: 2 mg Documented By: ERIC Non-Formulary Medication (Sucroferric Oxyhydroxide [Velphoro]) 500 mg PO TIDWM [facility] Ondansetron HCl (Ondansetron Hcl 4 Mg/2 Ml Vial) 4 mg IVPUSH Q8H PRN PRN Reason: Nausea and Vomiting Last Admin: 12/01/24 08:36 Dose: 4 mg Documented By: RABIA Oxycodone HCl (Oxycodone Hcl Immed Release 5 Mg Tablet) 5 mg PO Q4H PRN PRN Reason: Pain, Severe (Pain Scale 7-10) Last Admin: 11/29/24 17:58 Dose: 5 mg Documented By: JAGRUTI Pharmacy Consult (Consult Rx Vancomycin Dosing) 1 each MISCELLANE DAILY PRN PRN Reason: Consult order Pregabalin (Pregabalin 75 Mg Capsule) 75 mg PO DAILY [facility] Last Admin: 12/02/24 08:01 Dose: 75 mg Documented By: ERIC Sodium Chloride (0.9 % Sodium Chloride Flush 3 Ml Syringe) 3 ml IVFLUSH QSHIFT [facility] Last Admin: 12/02/24 01:34 Dose: 3 ml Documented By: BALDEMAR Labs 11/29/24 06:05 11/30/24 11:13 Labs: Laboratory Results - last 24 hr 12/01/24 12/01/24 12/01/24 11:48 16:35 20:11 POC Glucose 148 H 117 H 107 12/02/24 07:53 POC Glucose 87 Microbiology Microbiology Results: Microbiology 11/27/24 12:20 Blood Culture - Preliminary Blood - Venous No growth after 48 hours. 11/27/24 12:20 Blood Culture - Preliminary Blood - Venous No growth after 48 hours. Assessment and Plan (1) Gangrene due to arterial insufficiency: Status: Acute Plan 69-year-old man with significant past medical history of: * Peripheral vascular disease (PVD) with prior right transmetacarpal amputation (2nd?5th digits) and right below-knee amputation (BKA) * End-stage renal disease (ESRD) on hemodialysis (MWF) * Type 2 diabetes mellitus * Diabetic neuropathy * HypERtension * Seizure disorder * Hyperlipidemia * Obstructive sleep apnea * Chronic hypoxic respiratory failure * Gout Active Issues: 1. Left Foot Ischemia and Gangrene * Left first toe: dry gangrene; left second toe: dark discoloration, likely ischemic * Intractable pain * Leukocytosis and elevated CRP * Empiric antibiotics: vancomycin and zosyn * Continue aspirin and atorvastatin * Vascular surgery consulted; intervention deferred for now * Monitor CBC for trends * Morphine for pain 2. Abdominal Pain / Possible Small Bowel Obstruction (SBO) * Nonspecific bowel gas pattern on imaging; concern for SBO * Abdomen soft, non-distended; NGT removed yesterday * still with N/V, KUB still suggest SBO, * CT 12/01, SBO no transition point * Surgery following; conservative management at this time * NPO * Surgery to make further recommendation 3. End-Stage Renal Disease (ESRD) on Hemodialysis * Hemodialysis on Monday, Monday, Monday * Recent hyperkalemia, but received dialysis yesterday * Check labs today * Nephrology consulted for ongoing dialysis management 4. Type 2 Diabetes Mellitus * Blood glucose checks before meals and at bedtime * Sliding scale insulin while NPO 5. Diabetic Neuropathy * Continue pregabalin 6. Hypertension * Continue losartan, amlodipine, doxazosin, and carvedilol 7. Seizure Disorder * Continue levetiracetam 8. Hyperlipidemia * Continue statin therapy 9. Obstructive Sleep Apnea * Continue CPAP at night 10. Chronic Hypoxic Respiratory Failure * Continue home oxygen at 2 L/min via nasal cannula at night * Bronchodilator therapy as needed 11. Gout * Continue allopurinol Other Orders: * Code status: Full * DVT prophylaxis: Heparin Disposition: * Requires ongoing inpatient care for management of severe left first toe pain due to gangrene, monitoring for infection, and possible surgical intervention. Plan to continue close monitoring and multidisciplinary management. Quality Stroke Does the patient have a stroke diagnosis?: No VTE Prior VTE?: No VTE Risk Level:: Medical - moderate - high VTE Device Contraindication: Treatment Not Indicated VTE Drug Contraindication: N/A - Med Ordered
--- NOTE | 2024-12-02 09:46 | HO.PM.IMPN ---
Subjective Subjective Date of Service: 12/02/24 Interval History: Still c/o some abdominal pain, no nause or vomiting, she also has lot of pain in the foot. CT of abdomen yesterday showed SBO but no transition point, exam is beinging but has been NPO Physical Exam Vital Signs: Vital Signs: Last Vital Signs Temp 97.9 F 12/02/24 07:39 Pulse 74 12/02/24 07:43 Resp 16 12/02/24 07:43 BP 170/71 H 12/02/24 07:39 Pulse Ox 93 12/02/24 07:39 O2 Del Method Room Air 12/02/24 07:39 O2 Flow Rate 2.0 12/01/24 15:48 BMI result Body Mass Index 25.0 General: AO X 3, no acute distress Resp: CTA bilateral CVS: S1,S2,RRR GI: +BS, hs tenderness in LLq, no distention Skin: No rash Neuro: motor grossly intact Psych: appropriate affect Const: Other: General: AO X 3, no acute distress Resp: CTA bilateral CVS: S1,S2,RRR GI: +BS, NT, no distention Skin: No rash Neuro: motor grossly intact Psych: appropriate affect Objective Data Active Medications Acetaminophen (Acetaminophen 325 Mg Tablet) 975 mg PO Q6H PRN PRN Reason: Pain, Mild 1-3,fever,headache Last Admin: 11/28/24 14:21 Dose: 975 mg Documented By: SARIAH Albuterol Sulfate (Albuterol Sulfate 90 Mcg 8 Gm Inhaler) 2 puff INHALE Q4H PRN PRN Reason: Wheezing Albuterol/Ipratropium (Albuterol/Iprat 2.5/0.5mg 3 Ml Ampul.Neb) 3 ml INHALE QID PRN PRN Reason: Shortness of Breath Allopurinol (Allopurinol 100 Mg Tablet) 100 mg PO MOWEFR [facility] Last Admin: 11/29/24 08:21 Dose: Not Given Documented By: FRANCISCO Non-Admin Reason: NPO Amlodipine Besylate (Amlodipine Besylate 10 Mg Tablet) 10 mg PO DAILY [facility]; Protocol Last Admin: 12/02/24 08:01 Dose: 10 mg Documented By: ERIC Aspirin (Aspirin Enteric Coated 81 Mg Tablet.) 81 mg PO DAILY [facility] Last Admin: 12/01/24 07:59 Dose: 81 mg Documented By: RABIA Calcium Carbonate (Calcium Carbonate 750 Mg Tab.Chew) 750 mg PO Q4H PRN PRN Reason: Heartburn Last Admin: 12/01/24 07:49 Dose: 750 mg Documented By: RABIA Carvedilol (Carvedilol 6.25 Mg Tablet) 6.25 mg PO BID [facility]; Protocol Last Admin: 12/02/24 08:01 Dose: 6.25 mg Documented By: ERIC Dextrose (Dextrose 50 % 25 Gm/50 Ml Syringe) 25 gm IVPUSH Q15M PRN; Protocol PRN Reason: per Hypoglycemia Standing Ord. Last Admin: 11/29/24 11:38 Dose: 25 gm Documented By: FRANCISCO Doxazosin Mesylate (Doxazosin Mesylate 2 Mg Tablet) 4 mg PO BEDTIME [facility]; Protocol Last Admin: 12/01/24 19:38 Dose: Not Given Documented By: RABIA Non-Admin Reason: NPO Fluticasone/Umeclidinium/Vilanterol (Fluticasone/Umeclidinium/Vilanterol 100/62.5/25 Blst.W.Dev) 1 puff INHALE RDAILY [facility] Last Admin: 12/02/24 07:41 Dose: 1 puff Documented By: EVENS Glucose (Glucose Gel 15 Gm Gel..Gram.) 15 gm PO Q15M PRN; Protocol PRN Reason: per Hypoglycemia Standing Ord. Heparin Sodium (Porcine) (Heparin Sodium,Porcine 5,000 Unit/Ml Vial) 5,000 unit SUBCUT Q12H [facility] Last Admin: 12/02/24 08:05 Dose: 5,000 unit Documented By: ERIC Heparin Sodium (Porcine) (Heparin Sodium,Porcine 5,000 Unit/Ml Vial) 5,000 unit INTRACATH MOWEFR@1645 [facility] Last Admin: 11/29/24 18:01 Dose: Not Given Documented By: JAGRUTI Non-Admin Reason: Given in Dialysis Piperacillin Sod/Tazobactam (Sod 2.25 gm/ Sodium Chloride) 50 mls @ 100 mls/hr IV Q6H [facility] Last Infusion: 12/02/24 08:13 Dose: Infused Documented By: ERIC Vancomycin HCl 500 mg/ Sodium (Chloride) 110 mls @ 110 mls/hr IV MoWeFr [facility] Insulin Glargine (Insulin Glargine,Hum.Rec.Anlog 100 Unit/Ml 10 Ml Vial) 15 unit SUBCUT BEDTIME [facility] On Hold: 11/28/24 21:00 Insulin Human Lispro (Insulin Lispro 100 Unit/Ml 3 Ml Vial) 0 unit SUBCUT QIDACHS [facility]; Protocol Last Admin: 12/02/24 08:05 Dose: Not Given Documented By: ERIC Non-Admin Reason: No Insulin Coverage Levetiracetam (Levetiracetam 1,000 Mg Tablet) 1,000 mg PO BID [facility] Last Admin: 12/01/24 19:37 Dose: Not Given Documented By: RABIA Non-Admin Reason: NPO Losartan Potassium (Losartan Potassium 25 Mg Tablet) 25 mg PO DAILY [facility]; Protocol Last Admin: 12/02/24 08:01 Dose: 25 mg Documented By: ERIC Magnesium Hydroxide (Milk Of Magnesia 30 Ml Oral.Susp) 30 ml PO DAILY PRN PRN Reason: Constipation Last Admin: 12/01/24 07:59 Dose: 30 ml Documented By: RABIA Melatonin (Melatonin 3 Mg Tablet) 6 mg PO BEDTIME PRN PRN Reason: Insomnia Morphine Sulfate (Morphine Sulfate 2 Mg/Ml Cartridge) 2 mg IVPUSH Q3H PRN; Protocol PRN Reason: Pain, Severe (Pain Scale 7-10) Last Admin: 12/02/24 08:03 Dose: 2 mg Documented By: ERIC Non-Formulary Medication (Sucroferric Oxyhydroxide [Velphoro]) 500 mg PO TIDWM [facility] Ondansetron HCl (Ondansetron Hcl 4 Mg/2 Ml Vial) 4 mg IVPUSH Q8H PRN PRN Reason: Nausea and Vomiting Last Admin: 12/01/24 08:36 Dose: 4 mg Documented By: RABIA Oxycodone HCl (Oxycodone Hcl Immed Release 5 Mg Tablet) 5 mg PO Q4H PRN PRN Reason: Pain, Severe (Pain Scale 7-10) Last Admin: 11/29/24 17:58 Dose: 5 mg Documented By: JAGRUTI Pharmacy Consult (Consult Rx Vancomycin Dosing) 1 each MISCELLANE DAILY PRN PRN Reason: Consult order Pregabalin (Pregabalin 75 Mg Capsule) 75 mg PO DAILY [facility] Last Admin: 12/02/24 08:01 Dose: 75 mg Documented By: ERIC Sodium Chloride (0.9 % Sodium Chloride Flush 3 Ml Syringe) 3 ml IVFLUSH QSHIFT [facility] Last Admin: 12/02/24 01:34 Dose: 3 ml Documented By: BALDEMAR Labs 11/29/24 06:05 11/30/24 11:13 Labs: Laboratory Results - last 24 hr 12/01/24 12/01/24 12/01/24 11:48 16:35 20:11 POC Glucose 148 H 117 H 107 12/02/24 07:53 POC Glucose 87 Microbiology Microbiology Results: Microbiology 11/27/24 12:20 Blood Culture - Preliminary Blood - Venous No growth after 48 hours. 11/27/24 12:20 Blood Culture - Preliminary Blood - Venous No growth after 48 hours. Assessment and Plan (1) Gangrene due to arterial insufficiency: Status: Acute Plan 69-year-old man with significant past medical history of: Peripheral vascular disease (PVD) with prior right transmetacarpal amputation (2nd?5th digits) and right below-knee amputation (BKA) End-stage renal disease (ESRD) on hemodialysis (MWF) Type 2 diabetes mellitus Diabetic neuropathy HypERtension Seizure disorder Hyperlipidemia Obstructive sleep apnea Chronic hypoxic respiratory failure Gout Active Issues: 1. Left Foot Ischemia and Gangrene Left first toe: dry gangrene; left second toe: dark discoloration, likely ischemic Intractable pain Leukocytosis and elevated CRP Empiric antibiotics: vancomycin and zosyn Continue aspirin and atorvastatin Vascular surgery consulted; intervention deferred for now Monitor CBC for trends Morphine for pain 2. Abdominal Pain / Possible Small Bowel Obstruction (SBO) Nonspecific bowel gas pattern on imaging; concern for SBO Abdomen soft, non-distended; NGT removed yesterday still with N/V, KUB still suggest SBO, CT 12/01, SBO no transition point Surgery following; conservative management at this time NPO Surgery to make further recommendation 3. End-Stage Renal Disease (ESRD) on Hemodialysis Hemodialysis on Monday, Monday, Monday Recent hyperkalemia, but received dialysis yesterday Check labs today Nephrology consulted for ongoing dialysis management 4. Type 2 Diabetes Mellitus Blood glucose checks before meals and at bedtime Sliding scale insulin while NPO 5. Diabetic Neuropathy Continue pregabalin 6. Hypertension Continue losartan, amlodipine, doxazosin, and carvedilol 7. Seizure Disorder Continue levetiracetam 8. Hyperlipidemia Continue statin therapy 9. Obstructive Sleep Apnea Continue CPAP at night 10. Chronic Hypoxic Respiratory Failure Continue home oxygen at 2 L/min via nasal cannula at night Bronchodilator therapy as needed 11. Gout Continue allopurinol Other Orders: Code status: Full DVT prophylaxis: Heparin Disposition: Requires ongoing inpatient care for management of severe left first toe pain due to gangrene, monitoring for infection, and possible surgical intervention. Plan to continue close monitoring and multidisciplinary management. Quality Stroke Does the patient have a stroke diagnosis?: No VTE Prior VTE?: No VTE Risk Level:: Medical - moderate - high VTE Device Contraindication: Treatment Not Indicated VTE Drug Contraindication: N/A - Med Ordered
--- NOTE | 2024-12-02 10:29 | MHC.CM.PN ---
Per MD rounds patient not medically cleared for dc. CM will continue to follow.
--- NOTE | 2024-12-02 11:06 | HO.VASCPN ---
Subjective Subjective Date of Service: 12/02/24 Patient reports: no new complaints and still having pain Interval history: 61-year-old gentleman presents for follow-up regarding his lower extremities. His right-sided AKA and gangrenous left great toe. The current time I believe his biggest complaint is his abdominal discomfort. Although he does have some lower extremity pain is abdominal pain has been significant. He has been continuously asking for pain medications throughout his hospital stay. He now presents for routine follow-up. Physical Exam Vital Signs: Vital Signs: Last Vital Signs Temp 97.9 F 12/02/24 07:39 Pulse 74 12/02/24 07:43 Resp 16 12/02/24 07:43 BP 170/71 H 12/02/24 07:39 Pulse Ox 93 12/02/24 07:39 O2 Del Method Room Air 12/02/24 07:39 O2 Flow Rate 2.0 12/01/24 15:48 BMI result Body Mass Index 25.0 Const: General: cooperative, healthy appearing and comfortable Orientation/consciousness: oriented to person, oriented to place and oriented to time HEENT: Head: Yes normal to inspection Neck: Neck: Yes normal visual inspection Carotids: no bruits Chest: Chest palpation & inspection: normal inspection of the chest Resp: Effort & Inspection: normal respiratory effort and able to speak in complete sentences Auscultation: clear to auscultation bilaterally, no crackles, no rales, no rhonchi and no wheezes Cardio: Rate: regular rate Rhythm: regular rhythm Heart sounds: S1 normal heart sound present and S2 normal heart sound present Bruits: no carotid bruits Peripheral pulses: Peripheral pulses 2+ throughout GI: Inspection: Yes normal to inspection Skin: Other: Left great toe dry gangrene Wounds: no wounds Hair: normal Neuro: General: oriented to person, oriented to place and oriented to time Cranial nerves: Yes CN's II-XII intact bilaterally and Yes Normal hearing present Cognition (Neuro): normal cognition Motor exam (neuro): 5/5 motor strength present throughout Extrem: Other: venous exam: No significant superficial varicosities or spider telangiectasias, minimal edema General: No clubbing, No cyanosis and No edema Psych: Appearance: grossly normal Mental Status: mental status grossly normal Speech and movement: Normal speech and movement present Progress Note: A&P Assessment and plan (1) Peripheral arterial disease: Status: Acute Assessment and Plan: In short patient has dry gangrene of the left great toe. Eventually this will need to be amputated. I did review his arterial testing which did demonstrate significant arterial disease this may need to be addressed. Due to his multiple comorbidities in addition to current abdominal pain would like to manage this as conservatively as possible. Would like to have his abdominal pain and other pain better controlled. We can work him up electively as an outpatient in terms of his lower extremities. It does not appear to be acutely infected and has only dry gangrene at the current time. We will continue to monitor with you. Thank you for allowing us to assist in his care. Time Spent With Patient Time: Total time managing care of this patient today ____ minutes. Procedures Date of Service Date of Service: 12/02/24 Quality Stroke Does the patient have a stroke diagnosis?: No VTE Prior VTE?: No VTE Risk Level:: Medical - moderate - high VTE Device Contraindication: Treatment Not Indicated VTE Drug Contraindication: N/A - Med Ordered
--- NOTE | 2024-12-02 11:15 | P.PNNPD_ITS ---
Subjective Subjective Date of Service: 12/02/24 This patient was seen during dialysis. Interval history: Here with abdominal pain and left toe gangrene and ischemia, intractable pain. Following for management of ESRD on HD MWF (sees Dr Santana, [facility]) while hospitalized. Patient reports left lower quadrant abdominal pain (has SBO) and left toe pain. Denies shortness of breath, chest pain, other new concerns. Physical Exam Vital Signs: Vital Signs: Last Vital Signs Temp 97.9 F 12/02/24 07:39 Pulse 74 12/02/24 07:43 Resp 16 12/02/24 07:43 BP 170/71 H 12/02/24 07:39 Pulse Ox 93 12/02/24 07:39 O2 Del Method Room Air 12/02/24 07:39 O2 Flow Rate 2.0 12/01/24 15:48 BMI result Body Mass Index 25.0 Const: General: no acute distress and tired appearing Resp: Effort & Inspection: normal respiratory effort and able to speak in complete sentences Auscultation: clear to auscultation bilaterally Cardio: Rate: regular rate Rhythm: regular rhythm Heart sounds: S1 normal heart sound present and S2 normal heart sound present GI: Palpation (GI): Soft to palpation and Tenderness to palpation present (GI) Skin: Wounds: wounds noted Extrem: General: No edema Assessment & Plan Assessment and plan (1) ESRD needing dialysis: Status: Acute Plan ESRD on HD MWF - diaylsis today. access: Right permcath appears euvolemic Hgb 9.8- no indication for procrit at this time phos is 7.1- continue velphoro 500mg TID with meals. Calcium 8.8. potassium 4.8 no metabolic acidosis at this time Blood pressures acceptable low potassium, low phosphorous, and low sodium diet fluid restriction 1.5L/24 hours continue to monitor electrolytes renal function studies on dialysis days Discussed with Dr Jimenez. Time Spent With Patient Time: Total time managing care of this patient today ____ minutes. Procedures Date of Service Date of Service: 12/02/24
[2024-12-02 11:57] LABS: Glucose, Whole Blood 82 mg/dL (60-115)
--- NOTE | 2024-12-02 11:57 | PC.RT ---
pt has been refusing to wear cpap at night. prefers to wear 02. therefore order will be dc'd per policy.
--- NOTE | 2024-12-02 13:28 | MHC.CLN ---
CONSULT PATIENT IS NPO WITH ILEUS. ESRD ON HEMODIALYSIS. WHEN ABLE TO ADVANCE DIET, PER STAMPING B[employer]CH DIE [employer]KER, 2 GRAM SODIUM, LOW POTASSIUM, LOW PHOSPHORUS, 1500 ML FR. ALSO, DIABETIC 2000 KCALS. MONITOR FOR DIET ADVANCEMENT.
--- NOTE | 2024-12-02 15:07 | HO.WOUND ---
Wound Consult: Initial Consult 69yr old?[place] [facility]- See progress notes and H&P for detailed history.? Wound consult placed for Left calf and Right Hand.?Patient agreeable to assessment and photo documentation.? Right Hand - site of 2-4 finger amputations Etiology: Nonhealing surgical sites - Arterial Wounds?? Wound beds: dry adherent black necrotic tissue with soft yellow slough under scab / necrotic tissue Medial site 1.5cm x 1.2cm x 0.4cm Lateral site 0.2cm x 1cm x 0.2cm Irregular edges No induration no fluctance and no warmth noted Treatment - Durafiber for moisture management and autolytic debridement Left Great Toe Etiology: Arterial Wounds Wound Bed: dried mummified gangrene Drainage / Odor: no drainage no odor noted Edges: ? dried and stable Erin wound: ?No erythema noted - No Induration, Fluctuance or Warmth noted Pain: denies pain Goals of Treatment: ? [place] with Betadine Prior assessment Right AKA Etiology: Healed diabetic wound Wound Bed: Resurfacing intact scar tissue noted - May leave JARROD. Left Posterior Calf Etiology: Diabetic Wound?? Wound Bed: dry yellow slough 3.6cm x 2.5cm x x0.5cm Drainage / Odor: scant yellow drainage noted on dressing Edges: ? irregular and hyperpigmented Erin wound: scar tissue noted no flutuance and No Induration or Warmth noted Pain: reports pain Goals of Treatment: ? Durafiber for antimicrobial properties Recommendations: 1. Turn and Reposition every 2 hours and as needed for patient comfort.? Use pillows or wedges to support off loading positions. 2. Off Load all bony prominences with use of pillows and heel boots if needed.? Apply Preventative foams where needed. ? 3. Monitor for incontinence and moisture control, use barrier creams when needed for prevention and treatment. 4. Provide adequate and supplemental nutrition.? 5. Order low air loss mattress. 6. When applicable maintain blood glucose levels per Providers order. Left Posterior Calf - Cleanse with normal saline, pat dry. ?Apply barrier to the immediate erin wound, apply durafiber to wound bed cover with dry gauze, ABD pad and gauze wrap, change every other day. 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 Left Great Toe - [place] with Betadine allow to dry. May leave JARROD- if drainage occurs cover with dry gauze. [place] Daily. Right Fingers - Cleanse with saline moist gauze, pat dry. Apply skin prep to periwound, Apply Durafiber AG, followed by gauze and wrap. Change every other day. Re-consult wound care Nurse for wound deterioration or wound changes.
[2024-12-02 16:01] LABS: Glucose, Whole Blood 76 mg/dL (60-115)
[2024-12-02 20:38] LABS: Glucose, Whole Blood 89 mg/dL (60-115)
[2024-12-03 03:37] VITALS: BP 120/61; PULSE 64; RESP 16; TEMP 36.2; O2SAT 93
[2024-12-03] MEDS: Fluticasone/Umeclidinium/Vilanterol 100/62.5/25 BLST.W.DEV 1 PUFF INHALE (07:40)
[2024-12-03 07:42] VITALS: PULSE 64; RESP 16; O2SAT 93
[2024-12-03 07:42] LABS: Glucose, Whole Blood 87 mg/dL (60-115)
[2024-12-03 08:00] VITALS: BP 149/65; PULSE 63; RESP 16; TEMP 36.4
--- NOTE | 2024-12-03 08:01 | P.PNGS_ITS ---
Subjective Subjective Date of Service: 12/03/24 <Karthikeyan Huerta PA-C - Last Filed: 12/03/24 08:13> 12/03/24 <Sonny Holder MD - Last Filed: 12/03/24 10:08> Interval history: no new complaints. Passed lots of liquid stools yesterday. No further episodes of vomiting. he was minimally responsive during evaluation today, sleeping <Karthikeyan Huerta PA-C - Last Filed: 12/03/24 08:13> Physical Exam 2 Vital Signs: Vital Signs: Last Vital Signs Temp 97.2 F 12/03/24 03:37 Pulse 64 12/03/24 07:42 Resp 16 12/03/24 07:42 BP 120/61 12/03/24 03:37 Pulse Ox 93 12/03/24 03:37 O2 Del Method Room Air 12/03/24 03:37 O2 Flow Rate 2.0 12/01/24 15:48 BMI result Body Mass Index 25.0 <Karthikeyan Huerta PA-C - Last Filed: 12/03/24 08:13> Const: General: comfortable <Karthikeyan Huerta PA-C - Last Filed: 12/03/24 08:13> Orientation/consciousness: patient oriented x3 <Karthikeyan Huerta PA-C - Last Filed: 12/03/24 08:13> GI: Inspection: Yes distended (mild) <Karthikeyan Huerta PA-C - Last Filed: 12/03/24 08:13> Palpation (GI): Soft to palpation, Tenderness to palpation present (GI) (generalized ) and no guarding <Karthikeyan Huerta PA-C - Last Filed: 12/03/24 08:13> Neuro: General: patient oriented x3 <Karthikeyan Huerta PA-C - Last Filed: 12/03/24 08:13> Objective Data Active Medications Acetaminophen (Acetaminophen 325 Mg Tablet) 975 mg PO Q6H PRN PRN Reason: Pain, Mild 1-3,fever,headache Last Admin: 11/28/24 14:21 Dose: 975 mg Documented By: SARIAH Albuterol Sulfate (Albuterol Sulfate 90 Mcg 8 Gm Inhaler) 2 puff INHALE Q4H PRN PRN Reason: Wheezing Albuterol/Ipratropium (Albuterol/Iprat 2.5/0.5mg 3 Ml Ampul.Neb) 3 ml INHALE QID PRN PRN Reason: Shortness of Breath Allopurinol (Allopurinol 100 Mg Tablet) 100 mg PO MOWEFR [facility] Last Admin: 12/02/24 14:22 Dose: 100 mg Documented By: ERIC Amlodipine Besylate (Amlodipine Besylate 10 Mg Tablet) 10 mg PO DAILY [facility]; Protocol Last Admin: 12/02/24 08:01 Dose: 10 mg Documented By: ERIC Aspirin (Aspirin Enteric Coated 81 Mg Tablet.Dr) 81 mg PO DAILY [facility] Last Admin: 12/02/24 08:00 Dose: 81 mg Documented By: ERIC Calcium Carbonate (Calcium Carbonate 750 Mg Tab.Chew) 750 mg PO Q4H PRN PRN Reason: Heartburn Last Admin: 12/01/24 07:49 Dose: 750 mg Documented By: RABIA Carvedilol (Carvedilol 6.25 Mg Tablet) 6.25 mg PO BID [facility]; Protocol Last Admin: 12/02/24 20:15 Dose: 6.25 mg Documented By: OWEN Dextrose (Dextrose 50 % 25 Gm/50 Ml Syringe) 25 gm IVPUSH Q15M PRN; Protocol PRN Reason: per Hypoglycemia Standing Ord. Last Admin: 11/29/24 11:38 Dose: 25 gm Documented By: FRANCISCO Doxazosin Mesylate (Doxazosin Mesylate 2 Mg Tablet) 4 mg PO BEDTIME [facility]; Protocol Last Admin: 12/02/24 20:14 Dose: 4 mg Documented By: OWEN Fluticasone/Umeclidinium/Vilanterol (Fluticasone/Umeclidinium/Vilanterol 100/62.5/25 Blst.W.Dev) 1 puff INHALE RDAILY [facility] Last Admin: 12/03/24 07:40 Dose: 1 puff Documented By: SHRUTHI Glucose (Glucose Gel 15 Gm Gel..Gram.) 15 gm PO Q15M PRN; Protocol PRN Reason: per Hypoglycemia Standing Ord. Heparin Sodium (Porcine) (Heparin Sodium,Porcine 5,000 Unit/Ml Vial) 5,000 unit SUBCUT Q12H [facility] Last Admin: 12/02/24 20:16 Dose: 5,000 unit Documented By: OWEN Heparin Sodium (Porcine) (Heparin Sodium,Porcine 5,000 Unit/Ml Vial) 5,000 unit INTRACATH MOWEFR@1645 [facility] Last Admin: 12/02/24 17:05 Dose: Not Given Documented By: ROXANNE Non-Admin Reason: Given in Dialysis Piperacillin Sod/Tazobactam (Sod 2.25 gm/ Sodium Chloride) 50 mls @ 100 mls/hr IV Q6H [facility] Last Infusion: 12/03/24 06:34 Dose: Infused Documented By: OWEN Vancomycin HCl 500 mg/ Sodium (Chloride) 110 mls @ 110 mls/hr IV MoWeFr [facility] Insulin Glargine (Insulin Glargine,Hum.Rec.Anlog 100 Unit/Ml 10 Ml Vial) 15 unit SUBCUT BEDTIME [facility] On Hold: 11/28/24 21:00 Insulin Human Lispro (Insulin Lispro 100 Unit/Ml 3 Ml Vial) 0 unit SUBCUT QIDACHS [facility]; Protocol Last Admin: 12/03/24 07:47 Dose: Not Given Documented By: ROXANNE Non-Admin Reason: No Insulin Coverage Levetiracetam (Levetiracetam 1,000 Mg Tablet) 1,000 mg PO BID [facility] Last Admin: 12/02/24 20:14 Dose: 1,000 mg Documented By: OWEN Losartan Potassium (Losartan Potassium 25 Mg Tablet) 25 mg PO DAILY [facility]; Protocol Last Admin: 12/02/24 08:01 Dose: 25 mg Documented By: ERIC Magnesium Hydroxide (Milk Of Magnesia 30 Ml Oral.Susp) 30 ml PO DAILY PRN PRN Reason: Constipation Last Admin: 12/01/24 07:59 Dose: 30 ml Documented By: RABIA Melatonin (Melatonin 3 Mg Tablet) 6 mg PO BEDTIME PRN PRN Reason: Insomnia Morphine Sulfate (Morphine Sulfate 2 Mg/Ml Cartridge) 2 mg IVPUSH Q3H PRN; Protocol PRN Reason: Pain, Severe (Pain Scale 7-10) Last Admin: 12/03/24 01:02 Dose: 2 mg Documented By: OWEN Non-Formulary Medication (Sucroferric Oxyhydroxide [Velphoro]) 500 mg PO TIDWM [facility] Ondansetron HCl (Ondansetron Hcl 4 Mg/2 Ml Vial) 4 mg IVPUSH Q8H PRN PRN Reason: Nausea and Vomiting Last Admin: 12/01/24 08:36 Dose: 4 mg Documented By: RABIA Pharmacy Consult (Consult Rx Vancomycin Dosing) 1 each MISCELLANE DAILY PRN PRN Reason: Consult order Pregabalin (Pregabalin 75 Mg Capsule) 75 mg PO DAILY [facility] Last Admin: 12/02/24 08:01 Dose: 75 mg Documented By: ERIC Sodium Chloride (0.9 % Sodium Chloride Flush 3 Ml Syringe) 3 ml IVFLUSH QSHIFT [facility] Last Admin: 12/02/24 20:03 Dose: 3 ml Documented By: STEVEV <Karthikeyan Huerta PA-C - Last Filed: 12/03/24 08:13> Labs CBC & Chem 7: 11/29/24 06:05 11/30/24 11:13 <Karthikeyan Huerta PA-C - Last Filed: 12/03/24 08:13> Labs: Laboratory Results - last 24 hr 12/02/24 12/02/24 12/02/24 11:44 13:47 15:58 POC Glucose 82 76 Random Vancomycin 11.6 L 12/02/24 12/03/24 20:35 07:26 POC Glucose 89 87 Random Vancomycin <Karthikeyan Huerta PA-C - Last Filed: 12/03/24 08:13> Microbiology Microbiology Results: Microbiology 11/27/24 12:20 Blood Culture - Final Blood - Venous No growth after 5 days. 11/27/24 12:20 Blood Culture - Final Blood - Venous No growth after 5 days. <Karthikeyan Huerta PA-C - Last Filed: 12/03/24 08:13> Procedures Date of Service Date of Service: 12/03/24 <Karthikeyan Huerta PA-C - Last Filed: 12/03/24 08:13> 12/03/24 <Sonny Holder MD - Last Filed: 12/03/24 10:08> Progress Note: A&P Assessment and plan (1) Ileus: Status: Acute <Karthikeyan Huerta PA-C - Last Filed: 12/03/24 08:13> Assessment and Plan: The patient asking for food, says he is very hungry Small bowel series reviewed yesterday - more ileus pattern, no signs of obstruction Patient having several bowel movements due to the contrast from yesterday Okay to start clear liquids Treat any acute medical issue Abdomen is soft and benign Seen and examined independently <Sonny Holder MD - Last Filed: 12/03/24 10:08> Assessment and Plan: 69 year old male with multiple comorbidities including PVD s/p right transmetacarpal amputation (2nd-5th digits) and right BKA, ESRD on hemodialysis admitted for left foot wound, followed by surgery for likely ileus. Ordered small bowel follow through with gastrografin yesterday. Results showing ileus, no obvious obstruction. Gastrografin in the colon. He actually passed lots of liquid stool which is likely the gastrografin. He is still passing small amounts of flatus. Complaining of pain on the left side of the abdomen. On exam abdomen tender throughout the abdomen. Okay to have clears today Serial abdominal exams reduce narctoic load as tolerated will continue to follow <Karthikeyan Huerta PA-C - Last Filed: 12/03/24 08:13> Time Spent With Patient Time: Total time managing care of this patient today ____ minutes. <Karthikeyan Huerta PA-C - Last Filed: 12/03/24 08:13> Quality Stroke Does the patient have a stroke diagnosis?: No <Karthikeyan Huerta PA-C - Last Filed: 12/03/24 08:13> VTE Prior VTE?: No <Karthikeyan Huerta PA-C - Last Filed: 12/03/24 08:13> VTE Risk Level:: Medical - moderate - high <Karthikeyan Huerta PA-C - Last Filed: 12/03/24 08:13> VTE Device Contraindication: Treatment Not Indicated <Karthikeyan Huerta PA-C - Last Filed: 12/03/24 08:13> VTE Drug Contraindication: N/A - Med Ordered <Karthikeyan Huerta PA-C - Last Filed: 12/03/24 08:13>
[2024-12-03 08:51] LABS: Glucose, Whole Blood 95 mg/dL (60-115)
[2024-12-03] MEDS: Aspirin Enteric Coated 81 MG TABLET.DR PO (09:18)
[2024-12-03] MEDS: 0.9 % Sodium Chloride Flush 3 ML SYRINGE IVFLUSH ×3 (09:18→21:58)
[2024-12-03 10:49] LABS: CDiff Gene PCR NEGATIVE (Negative)
[2024-12-03 11:35] LABS: Glucose, Whole Blood 169 mg/dL (60-115)
--- NOTE | 2024-12-03 11:57 | P.PNIM_ITS ---
Subjective Subjective Date of Service: 12/03/24 Interval History: Abdominal pain is better, and tolerating liquid, GI serries showed ileus Physical Exam 2 Vital Signs: Vital Signs: Last Vital Signs Temp 97.5 F 12/03/24 08:00 Pulse 63 12/03/24 08:00 Resp 16 12/03/24 08:00 BP 149/65 H 12/03/24 08:00 Pulse Ox 93 12/03/24 03:37 O2 Del Method Room Air 12/03/24 03:37 O2 Flow Rate 2.0 12/01/24 15:48 BMI result Body Mass Index 25.0 General: AO X 3, no acute distress Resp: CTA bilateral CVS: S1,S2,RRR GI: +BS, hs tenderness in LLq, no distention Skin: No rash Neuro: motor grossly intact Psych: appropriate affect Const: Other: General: AO X 3, no acute distress Resp: CTA bilateral CVS: S1,S2,RRR GI: +BS, NT, no distention Skin: No rash, gangrenous toe see detail elsewhere Neuro: motor grossly intact Psych: appropriate affect Objective Data Active Medications Acetaminophen (Acetaminophen 325 Mg Tablet) 975 mg PO Q6H PRN PRN Reason: Pain, Mild 1-3,fever,headache Last Admin: 11/28/24 14:21 Dose: 975 mg Documented By: SARIAH Albuterol Sulfate (Albuterol Sulfate 90 Mcg 8 Gm Inhaler) 2 puff INHALE Q4H PRN PRN Reason: Wheezing Albuterol/Ipratropium (Albuterol/Iprat 2.5/0.5mg 3 Ml Ampul.Neb) 3 ml INHALE QID PRN PRN Reason: Shortness of Breath Allopurinol (Allopurinol 100 Mg Tablet) 100 mg PO MOWEFR [facility] Last Admin: 12/02/24 14:22 Dose: 100 mg Documented By: ERIC Amlodipine Besylate (Amlodipine Besylate 10 Mg Tablet) 10 mg PO DAILY [facility]; Protocol Last Admin: 12/03/24 09:18 Dose: 10 mg Documented By: ROXANNE Aspirin (Aspirin Enteric Coated 81 Mg Tablet.Dr) 81 mg PO DAILY [facility] Last Admin: 12/03/24 09:18 Dose: 81 mg Documented By: ROXANNE Calcium Carbonate (Calcium Carbonate 750 Mg Tab.Chew) 750 mg PO Q4H PRN PRN Reason: Heartburn Last Admin: 12/01/24 07:49 Dose: 750 mg Documented By: RABIA Carvedilol (Carvedilol 6.25 Mg Tablet) 6.25 mg PO BID [facility]; Protocol Last Admin: 12/03/24 09:18 Dose: 6.25 mg Documented By: ROXANNE Dextrose (Dextrose 50 % 25 Gm/50 Ml Syringe) 25 gm IVPUSH Q15M PRN; Protocol PRN Reason: per Hypoglycemia Standing Ord. Last Admin: 11/29/24 11:38 Dose: 25 gm Documented By: FRANCISCO Doxazosin Mesylate (Doxazosin Mesylate 2 Mg Tablet) 4 mg PO BEDTIME [facility]; Protocol Last Admin: 12/02/24 20:14 Dose: 4 mg Documented By: OWEN Fluticasone/Umeclidinium/Vilanterol (Fluticasone/Umeclidinium/Vilanterol 100/62.5/25 Blst.W.Dev) 1 puff INHALE RDAILY [facility] Last Admin: 12/03/24 07:40 Dose: 1 puff Documented By: SHRUTHI Glucose (Glucose Gel 15 Gm Gel..Gram.) 15 gm PO Q15M PRN; Protocol PRN Reason: per Hypoglycemia Standing Ord. Heparin Sodium (Porcine) (Heparin Sodium,Porcine 5,000 Unit/Ml Vial) 5,000 unit SUBCUT Q12H [facility] Last Admin: 12/03/24 09:18 Dose: 5,000 unit Documented By: ROXANNE Heparin Sodium (Porcine) (Heparin Sodium,Porcine 5,000 Unit/Ml Vial) 5,000 unit INTRACATH MOWEFR@1645 [facility] Last Admin: 12/02/24 17:05 Dose: Not Given Documented By: ROXANNE Non-Admin Reason: Given in Dialysis Piperacillin Sod/Tazobactam (Sod 2.25 gm/ Sodium Chloride) 50 mls @ 100 mls/hr IV Q6H [facility] Last Infusion: 12/03/24 06:34 Dose: Infused Documented By: OWEN Vancomycin HCl 500 mg/ Sodium (Chloride) 110 mls @ 110 mls/hr IV MoWeFr [facility] Insulin Glargine (Insulin Glargine,Hum.Rec.Anlog 100 Unit/Ml 10 Ml Vial) 15 unit SUBCUT BEDTIME [facility] On Hold: 11/28/24 21:00 Insulin Human Lispro (Insulin Lispro 100 Unit/Ml 3 Ml Vial) 0 unit SUBCUT QIDACHS [facility]; Protocol Last Admin: 12/03/24 07:47 Dose: Not Given Documented By: ROXANNE Non-Admin Reason: No Insulin Coverage Levetiracetam (Levetiracetam 1,000 Mg Tablet) 1,000 mg PO BID [facility] Last Admin: 12/03/24 09:18 Dose: 1,000 mg Documented By: ROXANNE Losartan Potassium (Losartan Potassium 25 Mg Tablet) 25 mg PO DAILY [facility]; Protocol Last Admin: 12/03/24 09:18 Dose: 25 mg Documented By: ROXANNE Magnesium Hydroxide (Milk Of Magnesia 30 Ml Oral.Susp) 30 ml PO DAILY PRN PRN Reason: Constipation Last Admin: 12/01/24 07:59 Dose: 30 ml Documented By: RABIA Melatonin (Melatonin 3 Mg Tablet) 6 mg PO BEDTIME PRN PRN Reason: Insomnia Morphine Sulfate (Morphine Sulfate 2 Mg/Ml Cartridge) 2 mg IVPUSH Q3H PRN; Protocol PRN Reason: Pain, Severe (Pain Scale 7-10) Last Admin: 12/03/24 01:02 Dose: 2 mg Documented By: OWEN Non-Formulary Medication (Sucroferric Oxyhydroxide [Velphoro]) 500 mg PO TIDWM [facility] Ondansetron HCl (Ondansetron Hcl 4 Mg/2 Ml Vial) 4 mg IVPUSH Q8H PRN PRN Reason: Nausea and Vomiting Last Admin: 12/01/24 08:36 Dose: 4 mg Documented By: RABIA Pharmacy Consult (Consult Rx Vancomycin Dosing) 1 each MISCELLANE DAILY PRN PRN Reason: Consult order Pregabalin (Pregabalin 75 Mg Capsule) 75 mg PO DAILY [facility] Last Admin: 12/03/24 09:18 Dose: 75 mg Documented By: ROXANNE Sevelamer Carbonate (Sevelamer Carbonate Tablet 800 Mg Tablet) 800 mg PO TIDWM [facility] Sodium Chloride (0.9 % Sodium Chloride Flush 3 Ml Syringe) 3 ml IVFLUSH QSHIFT [facility] Last Admin: 12/03/24 09:18 Dose: 3 ml Documented By: ROXANNE Labs 11/29/24 06:05 11/30/24 11:13 Labs: Laboratory Results - last 24 hr 12/02/24 12/02/24 12/02/24 11:44 13:47 15:58 POC Glucose 82 76 Random Vancomycin 11.6 L C. difficile Tox B Gene 12/02/24 12/03/24 12/03/24 20:35 07:26 08:48 POC Glucose 89 87 95 Random Vancomycin C. difficile Tox B Gene 12/03/24 12/03/24 09:16 11:31 POC Glucose 169 H Random Vancomycin C. difficile Tox B Gene NEGATIVE Microbiology Microbiology Results: Microbiology 11/27/24 12:20 Blood Culture - Final Blood - Venous No growth after 5 days. 11/27/24 12:20 Blood Culture - Final Blood - Venous No growth after 5 days. Assessment and Plan (1) Gangrene due to arterial insufficiency: Status: Acute Plan 69-year-old man with significant past medical history of: * Peripheral vascular disease (PVD) with prior right transmetacarpal amputation (2nd?5th digits) and right below-knee amputation (BKA) * End-stage renal disease (ESRD) on hemodialysis (MWF) * Type 2 diabetes mellitus * Diabetic neuropathy * HypERtension * Seizure disorder * Hyperlipidemia * Obstructive sleep apnea * Chronic hypoxic respiratory failure * Gout Active Issues: 1. Left Foot Ischemia and Gangrene * Left first toe: dry gangrene; left second toe: dark discoloration, likely ischemic * Intractable pain * Leukocytosis and elevated CRP * Empiric antibiotics: vancomycin and zosyn * Continue aspirin and atorvastatin * Vascular surgery consulted; intervention deferred for now * Monitor CBC for trends * Morphine for pain 2. Abdominal Pain / Possible Small Bowel Obstruction (SBO) * Nonspecific bowel gas pattern on imaging; concern for SBO * Abdomen soft, non-distended; NGT removed yesterday * still with N/V, KUB still suggest SBO, * CT 12/01, SBO no transition point * Upper GI and Small bowel series--show ileus * Surgery following; conservative management at this time * Liquid diet and advance as lennie * Surgery to make further recommendation 3. End-Stage Renal Disease (ESRD) on Hemodialysis * Hemodialysis on Monday, Wednesday, [facility] * Recent hyperkalemia, but received dialysis yesterday * Check labs today * Nephrology consulted for ongoing dialysis management 4. Type 2 Diabetes Mellitus * Blood glucose checks before meals and at bedtime * Sliding scale insulin while NPO 5. Diabetic Neuropathy * Continue pregabalin 6. Hypertension * Continue losartan, amlodipine, doxazosin, and carvedilol 7. Seizure Disorder * Continue levetiracetam 8. Hyperlipidemia * Continue statin therapy 9. Obstructive Sleep Apnea * Continue CPAP at night 10. Chronic Hypoxic Respiratory Failure * Continue home oxygen at 2 L/min via nasal cannula at night * Bronchodilator therapy as needed 11. Gout * Continue allopurinol Other Orders: * Code status: Full * DVT prophylaxis: Heparin Disposition: Discharge when tolerating regular Plan to continue close monitoring and multidisciplinary management. Quality Stroke Does the patient have a stroke diagnosis?: No VTE Prior VTE?: No VTE Risk Level:: Medical - moderate - high VTE Device Contraindication: Treatment Not Indicated VTE Drug Contraindication: N/A - Med Ordered
--- NOTE | 2024-12-03 11:57 | HO.PM.IMPN ---
Subjective Subjective Date of Service: 12/03/24 Interval History: Abdominal pain is better, and tolerating liquid, GI serries showed ileus Physical Exam Vital Signs: Vital Signs: Last Vital Signs Temp 97.5 F 12/03/24 08:00 Pulse 63 12/03/24 08:00 Resp 16 12/03/24 08:00 BP 149/65 H 12/03/24 08:00 Pulse Ox 93 12/03/24 03:37 O2 Del Method Room Air 12/03/24 03:37 O2 Flow Rate 2.0 12/01/24 15:48 BMI result Body Mass Index 25.0 General: AO X 3, no acute distress Resp: CTA bilateral CVS: S1,S2,RRR GI: +BS, hs tenderness in LLq, no distention Skin: No rash Neuro: motor grossly intact Psych: appropriate affect Const: Other: General: AO X 3, no acute distress Resp: CTA bilateral CVS: S1,S2,RRR GI: +BS, NT, no distention Skin: No rash, gangrenous toe see detail elsewhere Neuro: motor grossly intact Psych: appropriate affect Objective Data Active Medications Acetaminophen (Acetaminophen 325 Mg Tablet) 975 mg PO Q6H PRN PRN Reason: Pain, Mild 1-3,fever,headache Last Admin: 11/28/24 14:21 Dose: 975 mg Documented By: SARIAH Albuterol Sulfate (Albuterol Sulfate 90 Mcg 8 Gm Inhaler) 2 puff INHALE Q4H PRN PRN Reason: Wheezing Albuterol/Ipratropium (Albuterol/Iprat 2.5/0.5mg 3 Ml Ampul.Neb) 3 ml INHALE QID PRN PRN Reason: Shortness of Breath Allopurinol (Allopurinol 100 Mg Tablet) 100 mg PO MOWEFR ON LICENSE OF [facility] Last Admin: 12/02/24 14:22 Dose: 100 mg Documented By: ERIC Amlodipine Besylate (Amlodipine Besylate 10 Mg Tablet) 10 mg PO DAILY ON LICENSE OF [facility]; Protocol Last Admin: 12/03/24 09:18 Dose: 10 mg Documented By: ROXANNE Aspirin (Aspirin Enteric Coated 81 Mg Tablet.) 81 mg PO DAILY ON LICENSE OF [facility] Last Admin: 12/03/24 09:18 Dose: 81 mg Documented By: ROXANNE Calcium Carbonate (Calcium Carbonate 750 Mg Tab.Chew) 750 mg PO Q4H PRN PRN Reason: Heartburn Last Admin: 12/01/24 07:49 Dose: 750 mg Documented By: RABIA Carvedilol (Carvedilol 6.25 Mg Tablet) 6.25 mg PO BID ON LICENSE OF [facility]; Protocol Last Admin: 12/03/24 09:18 Dose: 6.25 mg Documented By: ROXANNE Dextrose (Dextrose 50 % 25 Gm/50 Ml Syringe) 25 gm IVPUSH Q15M PRN; Protocol PRN Reason: per Hypoglycemia Standing Ord. Last Admin: 11/29/24 11:38 Dose: 25 gm Documented By: FRANCISCO Doxazosin Mesylate (Doxazosin Mesylate 2 Mg Tablet) 4 mg PO BEDTIME ON LICENSE OF [facility]; Protocol Last Admin: 12/02/24 20:14 Dose: 4 mg Documented By: OWEN Fluticasone/Umeclidinium/Vilanterol (Fluticasone/Umeclidinium/Vilanterol 100/62.5/25 Blst.W.Dev) 1 puff INHALE RDAILY ON LICENSE OF [facility] Last Admin: 12/03/24 07:40 Dose: 1 puff Documented By: SHRUTHI Glucose (Glucose Gel 15 Gm Gel..Gram.) 15 gm PO Q15M PRN; Protocol PRN Reason: per Hypoglycemia Standing Ord. Heparin Sodium (Porcine) (Heparin Sodium,Porcine 5,000 Unit/Ml Vial) 5,000 unit SUBCUT Q12H ON LICENSE OF [facility] Last Admin: 12/03/24 09:18 Dose: 5,000 unit Documented By: ROXANNE Heparin Sodium (Porcine) (Heparin Sodium,Porcine 5,000 Unit/Ml Vial) 5,000 unit INTRACATH MOWEFR@1645 ON LICENSE OF [facility] Last Admin: 12/02/24 17:05 Dose: Not Given Documented By: ROXANNE Non-Admin Reason: Given in Dialysis Piperacillin Sod/Tazobactam (Sod 2.25 gm/ Sodium Chloride) 50 mls @ 100 mls/hr IV Q6H ON LICENSE OF [facility] Last Infusion: 12/03/24 06:34 Dose: Infused Documented By: OWEN Vancomycin HCl 500 mg/ Sodium (Chloride) 110 mls @ 110 mls/hr IV MoWeFr ON LICENSE OF [facility] Insulin Glargine (Insulin Glargine,Hum.Rec.Anlog 100 Unit/Ml 10 Ml Vial) 15 unit SUBCUT BEDTIME ON LICENSE OF [facility] On Hold: 11/28/24 21:00 Insulin Human Lispro (Insulin Lispro 100 Unit/Ml 3 Ml Vial) 0 unit SUBCUT QIDACHS ON LICENSE OF [facility]; Protocol Last Admin: 12/03/24 07:47 Dose: Not Given Documented By: ROXANNE Non-Admin Reason: No Insulin Coverage Levetiracetam (Levetiracetam 1,000 Mg Tablet) 1,000 mg PO BID ON LICENSE OF [facility] Last Admin: 12/03/24 09:18 Dose: 1,000 mg Documented By: ROXANNE Losartan Potassium (Losartan Potassium 25 Mg Tablet) 25 mg PO DAILY ON LICENSE OF [facility]; Protocol Last Admin: 12/03/24 09:18 Dose: 25 mg Documented By: ROXANNE Magnesium Hydroxide (Milk Of Magnesia 30 Ml Oral.Susp) 30 ml PO DAILY PRN PRN Reason: Constipation Last Admin: 12/01/24 07:59 Dose: 30 ml Documented By: RABIA Melatonin (Melatonin 3 Mg Tablet) 6 mg PO BEDTIME PRN PRN Reason: Insomnia Morphine Sulfate (Morphine Sulfate 2 Mg/Ml Cartridge) 2 mg IVPUSH Q3H PRN; Protocol PRN Reason: Pain, Severe (Pain Scale 7-10) Last Admin: 12/03/24 01:02 Dose: 2 mg Documented By: OWEN Non-Formulary Medication (Sucroferric Oxyhydroxide [Velphoro]) 500 mg PO TIDWM ON LICENSE OF [facility] Ondansetron HCl (Ondansetron Hcl 4 Mg/2 Ml Vial) 4 mg IVPUSH Q8H PRN PRN Reason: Nausea and Vomiting Last Admin: 12/01/24 08:36 Dose: 4 mg Documented By: RABIA Pharmacy Consult (Consult Rx Vancomycin Dosing) 1 each MISCELLANE DAILY PRN PRN Reason: Consult order Pregabalin (Pregabalin 75 Mg Capsule) 75 mg PO DAILY ON LICENSE OF [facility] Last Admin: 12/03/24 09:18 Dose: 75 mg Documented By: ROXANNE Sevelamer Carbonate (Sevelamer Carbonate Tablet 800 Mg Tablet) 800 mg PO TIDWM ON LICENSE OF [facility] Sodium Chloride (0.9 % Sodium Chloride Flush 3 Ml Syringe) [address] [facility] Last Admin: 12/03/24 09:18 Dose: 3 ml Documented By: ROXANNE Labs 11/29/24 06:05 11/30/24 11:13 Labs: Laboratory Results - last 24 hr 12/02/24 12/02/24 12/02/24 11:44 13:47 15:58 POC Glucose 82 76 Random Vancomycin 11.6 L C. difficile Tox B Gene 12/02/24 12/03/24 12/03/24 20:35 07:26 08:48 POC Glucose 89 87 95 Random Vancomycin C. difficile Tox B Gene 12/03/24 12/03/24 09:16 11:31 POC Glucose 169 H Random Vancomycin C. difficile Tox B Gene NEGATIVE Microbiology Microbiology Results: Microbiology 11/27/24 12:20 Blood Culture - Final Blood - Venous No growth after 5 days. 11/27/24 12:20 Blood Culture - Final Blood - Venous No growth after 5 days. Assessment and Plan (1) Gangrene due to arterial insufficiency: Status: Acute Plan 69-year-old man with significant past medical history of: Peripheral vascular disease (PVD) with prior right transmetacarpal amputation (2nd?5th digits) and right below-knee amputation (BKA) End-stage renal disease (ESRD) on hemodialysis (MWF) Type 2 diabetes mellitus Diabetic neuropathy HypERtension Seizure disorder Hyperlipidemia Obstructive sleep apnea Chronic hypoxic respiratory failure Gout Active Issues: 1. Left Foot Ischemia and Gangrene Left first toe: dry gangrene; left second toe: dark discoloration, likely ischemic Intractable pain Leukocytosis and elevated CRP Empiric antibiotics: vancomycin and zosyn Continue aspirin and atorvastatin Vascular surgery consulted; intervention deferred for now Monitor CBC for trends Morphine for pain 2. Abdominal Pain / Possible Small Bowel Obstruction (SBO) Nonspecific bowel gas pattern on imaging; concern for SBO Abdomen soft, non-distended; NGT removed yesterday still with N/V, KUB still suggest SBO, CT 12/01, SBO no transition point Upper GI and Small bowel series--show ileus Surgery following; conservative management at this time Liquid diet and advance as lennie Surgery to make further recommendation 3. End-Stage Renal Disease (ESRD) on Hemodialysis Hemodialysis on Monday, Monday, Monday Recent hyperkalemia, but received dialysis yesterday Check labs today Nephrology consulted for ongoing dialysis management 4. Type 2 Diabetes Mellitus Blood glucose checks before meals and at bedtime Sliding scale insulin while NPO 5. Diabetic Neuropathy Continue pregabalin 6. Hypertension Continue losartan, amlodipine, doxazosin, and carvedilol 7. Seizure Disorder Continue levetiracetam 8. Hyperlipidemia Continue statin therapy 9. Obstructive Sleep Apnea Continue CPAP at night 10. Chronic Hypoxic Respiratory Failure Continue home oxygen at 2 L/min via nasal cannula at night Bronchodilator therapy as needed 11. Gout Continue allopurinol Other Orders: Code status: Full DVT prophylaxis: Heparin Disposition: Discharge when tolerating regular Plan to continue close monitoring and multidisciplinary management. Quality Stroke Does the patient have a stroke diagnosis?: No VTE Prior VTE?: No VTE Risk Level:: Medical - moderate - high VTE Device Contraindication: Treatment Not Indicated VTE Drug Contraindication: N/A - Med Ordered
[2024-12-03] MEDS: Sevelamer Carbonate Tablet 800 MG TABLET PO ×2 (13:24→16:37)
[2024-12-03 15:08] VITALS: BP 125/59; PULSE 59; RESP 18; TEMP 36.1; O2SAT 95
[2024-12-03 16:04] LABS: Glucose, Whole Blood 217 mg/dL (60-115)
--- NOTE | 2024-12-03 17:27 | P.CDIM_ITS ---
PROVIDER RESPONSE TEXT: To clarify, the appropriate diagnosis supported by the clinical indicators: Diabetic neuropathy: peripheral QUERY TEXT: PHYSICIAN'S DOCUMENTATION REQUEST Date of Query: 12/02/2024 10:58 AM EDT Patient Name: Beau Marie Admit Date: 11/27/2024 Dear Hamlet Rai MD, A review of the medical record indicates additional documentation may be needed. Please review below and update the documentation accordingly. Clinical Indicators: Progress notes: Diabetic neuropathy Continue pregabalin. DM Type 2 Please clarify the following regarding further specifics to the noted Diabetic neuropathy, if known: Diabetic neuropathy Peripheral, Autonomic, Polyneuropathy, Mononeuropathy etc. Other specified Other (explain) Clinically unable to determine (explain) Thank you, Alberta Parikh, CCS, CDIS Use of terms such as suspected, likely, concern for, or probable (associated with a specific diagnosis that is being evaluated, monitored, or treated as if it exists) are acceptable and can be coded in the inpatient setting, when documented at the time of discharge. Please use your independent medical judgment in providing your response. THIS QUERY IS PART OF THE PERMANENT MEDICAL RECORD
--- NOTE | 2024-12-03 17:27 | P.CDIM_ITS ---
PROVIDER RESPONSE TEXT: To clarify, the appropriate diagnosis supported by the clinical indicators: Small bowel obstruction: adynamic QUERY TEXT: PHYSICIAN'S DOCUMENTATION REQUEST Date of Query: 12/02/2024 11:07 AM EDT Patient Name: Beau Marie Admit Date: 11/27/2024 Dear Hamlet Rai MD, A review of the medical record indicates additional documentation may be needed. Please review below and update the documentation accordingly. Clinical Indicators: Progress note 12/01/24 - Abdominal pain/Possible Small bowel obstruction (SBO) Nonspecific bowel gas pattern on imaging; concern for SBO Still with N/V, KUB still suggest SBO Conservative management at this time. Hold Liquid , NPO. Based on the above, could you clarify any further specificity to the noted SBO for this patient? Small bowel obstruction Partial, incomplete, complete, reflex, adynamic, due to specific condition etc. Other specifics Other (explain) Clinically unable to determine (explain) Thank you, Alberta Parikh, CCS, CDIS Use of terms such as suspected, likely, concern for, or probable (associated with a specific diagnosis that is being evaluated, monitored, or treated as if it exists) are acceptable and can be coded in the inpatient setting, when documented at the time of discharge. Please use your independent medical judgment in providing your response. THIS QUERY IS PART OF THE PERMANENT MEDICAL RECORD
[2024-12-03 19:31] VITALS: BP 105/57; PULSE 61; RESP 18; TEMP 37.2; O2SAT 100
[2024-12-03 20:41] LABS: Glucose, Whole Blood 92 mg/dL (60-115)
[2024-12-03 21:57] VITALS: BP 110/57; PULSE 60
[2024-12-04 03:13] VITALS: BP 117/54; PULSE 58; RESP 16; TEMP 36; O2SAT 93
--- NOTE | 2024-12-04 04:25 | PC.NURSE ---
Patient alert oriented x1-[address] otherwise with [facility] warehouse receiving supervisor Pedro being utilized. Patient restless in be bed at times as frequently changing positions from one side to another but denying pain. Linens changed, patient repositioned with pillows for comfort and care is ongoing.
[2024-12-04 06:36] LABS: Glucose, Whole Blood 121 mg/dL (60-115)
[2024-12-04 08:12] LABS: Hematocrit 28.8 % (42.0-52.0); Hemoglobin 8.8 g/dl (14.0-18.0); Mean Corpuscular HGB Conc 30.6 g/dl (31.0-36.0); Mean Corpuscular Hemoglobin 23.0 pg (27.0-33.0); Mean Corpuscular Volume 75.2 fL (80.0-98.0); NRBC Abs Auto 0.000 X10*3/uL (0.0-0.012); NRBC Pct Auto 0.0 /100WBC (0.0-0.2); Platelet Count 185 X10*3/uL (160-400); Red Blood Count 3.83 X10*6/uL (4.60-5.80); White Blood Count 19.6 X10*3/uL (4.8-10.8)
[2024-12-04 08:30] LABS: Anion Gap 20 (12-20); Blood Urea Nitrogen 36 mg/dL (9-16); Calcium 8.8 mg/dL (8.4-10.2); Carbon Dioxide 26 mmol/L (22-29); Chloride 102 mmol/L (96-108); Creatinine Clr Calc Pharmacy 9.7; Estimated Glomerular Filt Rate 9; Potassium 3.8 mmol/L (3.3-5.1); Sodium 144 mmol/L (135-145)
--- NOTE | 2024-12-04 09:21 | HO.VASCPN ---
Subjective Subjective Date of Service: 12/04/24 Patient reports: no new complaints and still having pain Interval history: Patient seen and examined this morning while he was on hemodialysis. He continues to complain of significant pain in his abdomen and left lower extremity. Think his abdomen is his biggest concern at the current time. Now for routine follow-up. Physical Exam Vital Signs: Vital Signs: Last Vital Signs Temp 96.8 F 12/04/24 03:13 Pulse 58 12/04/24 03:13 Resp 16 12/04/24 03:13 BP 117/54 L 12/04/24 03:13 Pulse Ox 93 12/04/24 03:13 O2 Del Method Room Air 12/04/24 03:13 O2 Flow Rate 2.0 12/01/24 15:48 BMI result Body Mass Index 25.0 Const: General: cooperative, healthy appearing and comfortable Orientation/consciousness: oriented to person, oriented to place and oriented to time HEENT: Head: Yes normal to inspection Neck: Neck: Yes normal visual inspection Carotids: no bruits Chest: Chest palpation & inspection: normal inspection of the chest Resp: Effort & Inspection: normal respiratory effort and able to speak in complete sentences Auscultation: clear to auscultation bilaterally, no crackles, no rales, no rhonchi and no wheezes Cardio: Rate: regular rate Rhythm: regular rhythm Heart sounds: S1 normal heart sound present and S2 normal heart sound present Bruits: no carotid bruits Peripheral pulses: Peripheral pulses 2+ throughout GI: Inspection: Yes normal to inspection Skin: Other: Left leg great toe has dry gangrene. No evidence of acute infection. No erythema or cellulitis noted. In addition he has this posterior calf ulceration as well. That in also appears to be relatively clean. Wounds: amputation site (Right AKA healed well) and wounds noted Hair: normal Neuro: General: oriented to person, oriented to place and oriented to time Cranial nerves: Yes CN's II-XII intact bilaterally and Yes Normal hearing present Cognition (Neuro): normal cognition Motor exam (neuro): 5/5 motor strength present throughout Extrem: Other: venous exam: No significant superficial varicosities or spider telangiectasias, minimal edema General: No clubbing, No cyanosis and No edema Psych: Appearance: grossly normal Mental Status: mental status grossly normal Speech and movement: Normal speech and movement present Progress Note: A&P Assessment and plan (1) Peripheral arterial disease: Status: Acute Assessment and Plan: In short patient has left leg appears to be stable. Unfortunately he has multiple issues going on right now. Bigger concern is his abdominal pain. Would like that to resolve prior to me addressing his left lower extremity. Although he does have ulcers they appear to be stable and not progressing. Once his current acute issues resolve happy to address his left lower extremity as an outpatient. He will require endovascular intervention and possible great toe amputation. Fear is the amount of disease he may have he may require further amputation possibly as high as an AKA similar to the other side. Once again we can see him as an outpatient happy to assist in his care. Thank you for allowing us to participate in his care. Time Spent With Patient Time: Total time managing care of this patient today ____ minutes. Procedures Date of Service Date of Service: 12/04/24 Quality Stroke Does the patient have a stroke diagnosis?: No VTE Prior VTE?: No VTE Risk Level:: Medical - moderate - high VTE Device Contraindication: Treatment Not Indicated VTE Drug Contraindication: N/A - Med Ordered
--- NOTE | 2024-12-04 10:49 | MHC.CM.PN ---
Patient not medically cleared for dc. CM will continue to follow.
--- NOTE | 2024-12-04 10:56 | P.PNNPD_ITS ---
Subjective Subjective Date of Service: 12/04/24 This patient was seen during dialysis. Interval history: Here with abdominal pain and left toe gangrene and ischemia, intractable pain. Following for management of ESRD on HD MWF (sees Dr Santana, [facility]) while hospitalized. Patient asleep on dialysis. Has small bowel obstruction, diet has been advanced to clears as tolerated. No other new events noted. Physical Exam Vital Signs: Vital Signs: Last Vital Signs Temp 96.8 F 12/04/24 03:13 Pulse 58 12/04/24 03:13 Resp 16 12/04/24 03:13 BP 117/54 L 12/04/24 03:13 Pulse Ox 93 12/04/24 03:13 O2 Del Method Room Air 12/04/24 03:13 O2 Flow Rate 2.0 12/01/24 15:48 BMI result Body Mass Index 25.0 Const: General: no acute distress and tired appearing Resp: Effort & Inspection: normal respiratory effort and able to speak in complete sentences Auscultation: clear to auscultation bilaterally Cardio: Rate: regular rate Rhythm: regular rhythm Heart sounds: S1 normal heart sound present and S2 normal heart sound present GI: Palpation (GI): Soft to palpation and Tenderness to palpation present (GI) Skin: Wounds: wounds noted Extrem: General: No edema Assessment & Plan Assessment and plan (1) ESRD needing dialysis: Status: Acute Plan ESRD on HD MWF - diaylsis today. access: Right permcath appears euvolemic Hgb 8.8- will start procrit 10,000 units MWF. phos is 6.6- continue velphoro 500mg TID with meals, sevelamer 800mg TID with meals given extensive vascular calcifications on imaging. Calcium 8.8. potassium 3.8 no metabolic acidosis at this time Blood pressures acceptable low potassium, low phosphorous, and low sodium diet fluid restriction 1.5L/24 hours continue to monitor electrolytes renal function studies on dialysis days Discussed with Dr Jimenez. Time Spent With Patient Time: Total time managing care of this patient today ____ minutes. Procedures Date of Service Date of Service: 12/04/24
--- NOTE | 2024-12-04 11:36 | MHC.CLN ---
NUTRITION TODAY IS DAY 7 OF NPO OR CLEAR LIQUID DIET PATIENT WITH LIMITED PO INTAKE DUE TO ILEUS NUTRITIONAL STATUS COMPLICATED WITH ESRD RECEIVING DIALYSIS M, W, F START PPN PER PROVIDER RECOMMEND PPN POST DIALYSIS AND RUN WHEN NOT RECEIVING HD START PPN AT 45 ML PER HOUR TO PROVIDE 46 G PROTEIN, 108 G DEXTROSE, 551 KCALS PPN TO RUN STARTING IN PM ON MONDAY, MONDAY, MONDAY AND MONDAY IN CONSIDERATION OF DIALYSIS ON MONDAY, MONDAY, MONDAY REPLETE LYTES NEEDED, CHECK TRIGLYCERIDES MONITOR LABS, PPN TOLERANCE AND PO INTAKE
[2024-12-04 11:49] LABS: Glucose, Whole Blood 119 mg/dL (60-115)
[2024-12-04] MEDS: Aspirin Enteric Coated 81 MG TABLET.DR PO (11:54)
[2024-12-04] MEDS: Sevelamer Carbonate Tablet 800 MG TABLET PO (11:55)
[2024-12-04 12:06] VITALS: BMI 25.0
--- NOTE | 2024-12-04 12:55 | P.PNGS_ITS ---
Subjective Subjective Date of Service: 12/04/24 <Karthikeyan Huerta PA-C - Last Filed: 12/04/24 12:57> 12/04/24 <Sonny Holder MD - Last Filed: 12/04/24 15:47> Interval history: No new complaints, states he feels his abdominal pain is improving. Tolerating clear liquid diet. He is hungry. Denies nausea or vomiting. Past another bowel movement yesterday, 1 today during dialysis. <Karthikeyan Huerta PA-C - Last Filed: 12/04/24 12:57> Physical Exam 2 Vital Signs: Vital Signs: Last Vital Signs Temp 96.8 F 12/04/24 03:13 Pulse 58 12/04/24 03:13 Resp 16 12/04/24 03:13 BP 117/54 L 12/04/24 03:13 Pulse Ox 93 12/04/24 03:13 O2 Del Method Room Air 12/04/24 03:13 O2 Flow Rate 2.0 12/01/24 15:48 BMI result Body Mass Index 25.0 <Karthikeyan Huerta PA-C - Last Filed: 12/04/24 12:57> Const: General: comfortable and no acute distress <Karthikeyan Huerta PA-C - Last Filed: 12/04/24 12:57> Orientation/consciousness: patient oriented x3 <SOPHIE Styles Last Filed: 12/04/24 12:57> Resp: Effort & Inspection: normal respiratory effort and able to speak in complete sentences <Karthikeyan Huerta PA-C - Last Filed: 12/04/24 12:57> GI: Inspection: No distended <SOPHIE Styles Last Filed: 12/04/24 12:57> Palpation (GI): Soft to palpation and nontender <Karthikeyan Huerta PA-C - Last Filed: 12/04/24 12:57> Percussion: Yes normal to percussion <SOPHIE Styles Last Filed: 12/04/24 12:57> Neuro: General: patient oriented x3 <SOPHIE Styles Last Filed: 12/04/24 12:57> Objective Data Active Medications Acetaminophen (Acetaminophen 325 Mg Tablet) 975 mg PO Q6H PRN PRN Reason: Pain, Mild 1-3,fever,headache Last Admin: 11/28/24 14:21 Dose: 975 mg Albuterol Sulfate (Albuterol Sulfate 90 Mcg 8 Gm Inhaler) 2 puff INHALE Q4H PRN PRN Reason: Wheezing Albuterol/Ipratropium (Albuterol/Iprat 2.5/0.5mg 3 Ml Ampul.Neb) 3 ml INHALE QID PRN PRN Reason: Shortness of Breath Allopurinol (Allopurinol 100 Mg Tablet) 100 mg PO MOWEFR [facility] Last Admin: 12/04/24 11:58 Dose: 100 mg Documented By: ROXANNE Amlodipine Besylate (Amlodipine Besylate 10 Mg Tablet) 10 mg PO DAILY [facility]; Protocol Last Admin: 12/04/24 11:55 Dose: 10 mg Documented By: ROXANNE Aspirin (Aspirin Enteric Coated 81 Mg Tablet.Dr) 81 mg PO DAILY [facility] Last Admin: 12/04/24 11:54 Dose: 81 mg Documented By: ROXANNE Calcium Carbonate (Calcium Carbonate 750 Mg Tab.Chew) 750 mg PO Q4H PRN PRN Reason: Heartburn Last Admin: 12/01/24 07:49 Dose: 750 mg Documented By: RABIA Carvedilol (Carvedilol 6.25 Mg Tablet) 6.25 mg PO BID [facility]; Protocol Last Admin: 12/04/24 11:55 Dose: 6.25 mg Documented By: ROXANNE Dextrose (Dextrose 50 % 25 Gm/50 Ml Syringe) 25 gm IVPUSH Q15M PRN; Protocol PRN Reason: per Hypoglycemia Standing Ord. Last Admin: 11/29/24 11:38 Dose: 25 gm Documented By: FRANCISCO Doxazosin Mesylate (Doxazosin Mesylate 2 Mg Tablet) 4 mg PO BEDTIME [facility]; Protocol Last Admin: 12/03/24 21:57 Dose: 4 mg Documented By: ELISEO Epoetin Keegan-epbx (Epoetin Keegan-Epbx 10,000 Unit/Ml Vial) 10,000 unit SUBCUT MoWeFr@1645 [facility] Fluticasone/Umeclidinium/Vilanterol (Fluticasone/Umeclidinium/Vilanterol 100/62.5/25 Blst.W.Dev) 1 puff INHALE RDAILY [facility] Last Admin: 12/04/24 08:08 Dose: Not Given Documented By: SHRUTHI Non-Admin Reason: Not In Room Glucose (Glucose Gel 15 Gm Gel..Gram.) 15 gm PO Q15M PRN; Protocol PRN Reason: per Hypoglycemia Standing Ord. Heparin Sodium (Porcine) (Heparin Sodium,Porcine 5,000 Unit/Ml Vial) 5,000 unit SUBCUT Q12H [facility] Last Admin: 12/04/24 11:55 Dose: 5,000 unit Documented By: ROXANNE Heparin Sodium (Porcine) (Heparin Sodium,Porcine 5,000 Unit/Ml Vial) 5,000 unit INTRACATH MOWEFR@1645 [facility] Last Admin: 12/02/24 17:05 Dose: Not Given Documented By: ROXANNE Non-Admin Reason: Given in Dialysis Piperacillin Sod/Tazobactam (Sod 2.25 gm/ Sodium Chloride) 50 mls @ 100 mls/hr IV Q6H [facility] Last Admin: 12/04/24 12:38 Dose: 100 mls/hr Documented By: ROXANNE Vancomycin HCl 500 mg/ Sodium (Chloride) 110 mls @ 110 mls/hr IV MoWeFr [facility] Nutrition (Parenteral) (Parenteral Nutrition) 1,080 mls @ 45 mls/hr IV .Q24H [facility]; Protocol Stop: 12/05/24 20:59 Insulin Glargine (Insulin Glargine,Hum.Rec.Anlog 100 Unit/Ml 10 Ml Vial) 15 unit SUBCUT BEDTIME [facility] On Hold: 11/28/24 21:00 Insulin Human Lispro (Insulin Lispro 100 Unit/Ml 3 Ml Vial) 0 unit SUBCUT QIDACHS [facility]; Protocol Last Admin: 12/04/24 11:50 Dose: Not Given Documented By: ROXANNE Non-Admin Reason: No Insulin Coverage Levetiracetam (Levetiracetam 1,000 Mg Tablet) 1,000 mg PO BID [facility] Last Admin: 12/04/24 11:55 Dose: 1,000 mg Documented By: ROXANNE Losartan Potassium (Losartan Potassium 25 Mg Tablet) 25 mg PO DAILY [facility]; Protocol Last Admin: 12/04/24 11:54 Dose: 25 mg Documented By: ROXANNE Magnesium Hydroxide (Milk Of Magnesia 30 Ml Oral.Susp) 30 ml PO DAILY PRN PRN Reason: Constipation Last Admin: 12/01/24 07:59 Dose: 30 ml Documented By: RABIA Melatonin (Melatonin 3 Mg Tablet) 6 mg PO BEDTIME PRN PRN Reason: Insomnia Ondansetron HCl (Ondansetron Hcl 4 Mg/2 Ml Vial) 4 mg IVPUSH Q8H PRN PRN Reason: Nausea and Vomiting Last Admin: 12/01/24 08:36 Dose: 4 mg Documented By: ARBIA Pharmacy Consult (Consult Rx Vancomycin Dosing) 1 each MISCELLANE DAILY PRN PRN Reason: Consult order Pregabalin (Pregabalin 75 Mg Capsule) 75 mg PO DAILY [facility] Last Admin: 12/04/24 11:55 Dose: 75 mg Documented By: ROXANNE Sevelamer Carbonate (Sevelamer Carbonate Tablet 800 Mg Tablet) 800 mg PO TIDWM [facility] Last Admin: 12/04/24 11:55 Dose: 800 mg Documented By: ROXANNE Sodium Chloride (0.9 % Sodium Chloride Flush 3 Ml Syringe) 3 ml IVFLUSH QSHIFT [facility] Last Admin: 12/04/24 09:52 Dose: Not Given Documented By: ROXANNE Non-Admin Reason: Off unit: Dialysis <Karthikeyan Huerta PA-C - Last Filed: 12/04/24 12:57> Labs CBC & Chem 7: 12/04/24 07:40 12/04/24 07:40 <Karthikeyan Huerta PA-C - Last Filed: 12/04/24 12:57> Labs: Laboratory Results - last 24 hr 12/03/24 12/03/24 12/04/24 15:59 19:57 06:32 MCV MCH MCHC RDW Plt Count MPV Absolute Nucleated RBC Nucleated RBC % (auto) Anion Gap Estim Creat Clear Calc Estimated GFR POC Glucose 217 H 92 121 H Random Glucose Calcium Phosphorus 12/04/24 12/04/24 07:40 11:39 MCV 75.2 L MCH 23.0 L MCHC 30.6 L RDW 17.4 H Plt Count 185 MPV Not Reportable Absolute Nucleated RBC 0.000 Nucleated RBC % (auto) 0.0 Anion Gap 20 Estim Creat Clear Calc 9.7 Estimated GFR 9 POC Glucose 119 H Random Glucose 171 H Calcium 8.8 Phosphorus 6.6 H <Karthikeyan Huerta PA-C - Last Filed: 12/04/24 12:57> Procedures Date of Service Date of Service: 12/04/24 <Karthikeyan Huerta PA-C - Last Filed: 12/04/24 12:57> 12/04/24 <Sonny Holder MD - Last Filed: 12/04/24 15:47> Progress Note: A&P Assessment and plan (1) Ileus: Status: Acute <Karthikeyan Huerta PA-C - Last Filed: 12/04/24 12:57> Assessment and Plan: He says his abdominal pain has improved significantly He tolerating clear liquids well Abdomen remained soft and benign Okay to advance to full liquids and slowly advance further as tolerated Seen and examined independently <Sonny Holder MD - Last Filed: 12/04/24 15:47> Assessment and Plan: 69 year old male with multiple comorbidities including PVD s/p right transmetacarpal amputation (2nd-5th digits) and right BKA, ESRD on hemodialysis admitted for left foot wound, followed by surgery for likely ileus. Feeling improved today. Denies abdominal pain. Denies nausea or vomiting. He is passing gas, also passed multiple bowel movements. On exam abdomen is nondistended, nontender to palpation. Overall he looks well, ileus likely resolving, we will continue to follow during this admission Advance diet to full liquid Serial abdominal exams reduce narctoic load as tolerated <Karthikeyan Huerta PA-C - Last Filed: 12/04/24 12:57> Time Spent With Patient Time: Total time managing care of this patient today ____ minutes. <Karthikeyan Huerta PA-C - Last Filed: 12/04/24 12:57> Quality Stroke Does the patient have a stroke diagnosis?: No <Karthikeyan Huerta PA-C - Last Filed: 12/04/24 12:57> VTE Prior VTE?: No <SOPHIE Styles Last Filed: 12/04/24 12:57> VTE Risk Level:: Medical - moderate - high <SOPHIE Styles Last Filed: 12/04/24 12:57> VTE Device Contraindication: Treatment Not Indicated <Karthikeyan Huerta PA-C - Last Filed: 12/04/24 12:57> VTE Drug Contraindication: N/A - Med Ordered <Karthikeyan Huerta PA-C - Last Filed: 12/04/24 12:57>
[2024-12-04 14:53] VITALS: BP 138/64; PULSE 58; RESP 16; TEMP 36.2; O2SAT 94
[2024-12-04 15:11] VITALS: BP 143/65; PULSE 58; RESP 18; TEMP 36.3; O2SAT 94
[2024-12-04 16:27] LABS: Glucose, Whole Blood 141 mg/dL (60-115)
[2024-12-04] MEDS: 0.9 % Sodium Chloride Flush 3 ML SYRINGE IVFLUSH ×2 (17:02→20:17)
--- NOTE | 2024-12-04 17:24 | P.PNIM_ITS ---
Subjective Subjective Date of Service: 12/05/24 Interval History: Abdominal pain is better, and tolerating liquid, GI serries showed ileus Review of Systems some abd pain Review of Systems: Yes all other systems are reviewed and are negative Physical Exam 2 Exam: Exam: general: AO X 3, no acute distress Resp: CTA bilateral CVS: S1,S2,RRR GI: +BS, mild tenderness in LLq, no distention Skin: No rash Neuro: motor grossly intact Psych: appropriate affect Vital Signs: Vital Signs: Last Vital Signs Temp 97.3 F 12/04/24 15:11 Pulse 58 12/04/24 15:11 Resp 18 12/04/24 15:11 BP 143/65 H 12/04/24 15:11 Pulse Ox 94 12/04/24 15:11 O2 Del Method Room Air 12/04/24 15:11 O2 Flow Rate 2.0 12/01/24 15:48 BMI result Body Mass Index 25.0 Objective Data Active Medications Acetaminophen (Acetaminophen 325 Mg Tablet) 975 mg PO Q6H PRN PRN Reason: Pain, Mild 1-3,fever,headache Last Admin: 11/28/24 14:21 Dose: 975 mg Albuterol Sulfate (Albuterol Sulfate 90 Mcg 8 Gm Inhaler) 2 puff INHALE Q4H PRN PRN Reason: Wheezing Albuterol/Ipratropium (Albuterol/Iprat 2.5/0.5mg 3 Ml Ampul.Neb) 3 ml INHALE QID PRN PRN Reason: Shortness of Breath Allopurinol (Allopurinol 100 Mg Tablet) 100 mg PO MOWEFR [facility] Last Admin: 12/04/24 11:58 Dose: 100 mg Documented By: ROXANNE Amlodipine Besylate (Amlodipine Besylate 10 Mg Tablet) 10 mg PO DAILY [facility]; Protocol Last Admin: 12/04/24 11:55 Dose: 10 mg Documented By: ROXANNE Aspirin (Aspirin Enteric Coated 81 Mg Tablet.) 81 mg PO DAILY [facility] Last Admin: 12/04/24 11:54 Dose: 81 mg Documented By: ROXANNE Calcium Carbonate (Calcium Carbonate 750 Mg Tab.Chew) 750 mg PO Q4H PRN PRN Reason: Heartburn Last Admin: 12/01/24 07:49 Dose: 750 mg Documented By: RABIA Carvedilol (Carvedilol 6.25 Mg Tablet) 6.25 mg PO BID [facility]; Protocol Last Admin: 12/04/24 11:55 Dose: 6.25 mg Documented By: ROXANNE Dextrose (Dextrose 50 % 25 Gm/50 Ml Syringe) 25 gm IVPUSH Q15M PRN; Protocol PRN Reason: per Hypoglycemia Standing Ord. Last Admin: 11/29/24 11:38 Dose: 25 gm Documented By: FRANCISCO Doxazosin Mesylate (Doxazosin Mesylate 2 Mg Tablet) 4 mg PO BEDTIME [facility]; Protocol Last Admin: 12/03/24 21:57 Dose: 4 mg Documented By: ELISEO Epoetin Keegan-epbx (Epoetin Keegan-Epbx 10,000 Unit/Ml Vial) 10,000 unit SUBCUT MoWeFr@1645 [facility] Fluticasone/Umeclidinium/Vilanterol (Fluticasone/Umeclidinium/Vilanterol 100/62.5/25 Blst.W.Dev) 1 puff INHALE RDAILY [facility] Last Admin: 12/04/24 08:08 Dose: Not Given Documented By: SHRUTHI Non-Admin Reason: Not In Room Glucose (Glucose Gel 15 Gm Gel..Gram.) 15 gm PO Q15M PRN; Protocol PRN Reason: per Hypoglycemia Standing Ord. Heparin Sodium (Porcine) (Heparin Sodium,Porcine 5,000 Unit/Ml Vial) 5,000 unit SUBCUT Q12H [facility] Last Admin: 12/04/24 17:00 Dose: 5,000 unit Documented By: POLLO Comments: Medication given early MD Reid made aware. Heparin Sodium (Porcine) (Heparin Sodium,Porcine 5,000 Unit/Ml Vial) 5,000 unit INTRACATH MOWEFR@1645 [facility] Last Admin: 12/04/24 17:07 Dose: Not Given Documented By: POLLO Non-Admin Reason: given in HD Piperacillin Sod/Tazobactam (Sod 2.25 gm/ Sodium Chloride) 50 mls @ 100 mls/hr IV Q6H [facility] Last Infusion: 12/04/24 13:12 Dose: Infused Documented By: ROXANNE Vancomycin HCl 500 mg/ Sodium (Chloride) 110 mls @ 110 mls/hr IV MoWeFr [facility] Nutrition (Parenteral) (Parenteral Nutrition) 1,080 mls @ 45 mls/hr IV .Q24H [facility]; Protocol Stop: 12/05/24 20:59 Insulin Glargine (Insulin Glargine,Hum.Rec.Anlog 100 Unit/Ml 10 Ml Vial) 15 unit SUBCUT BEDTIME [facility] On Hold: 11/28/24 21:00 Insulin Human Lispro (Insulin Lispro 100 Unit/Ml 3 Ml Vial) 0 unit SUBCUT QIDACHS [facility]; Protocol Last Admin: 12/04/24 17:03 Dose: Not Given Documented By: POLLO Non-Admin Reason: No Insulin Coverage Levetiracetam (Levetiracetam 1,000 Mg Tablet) 1,000 mg PO BID [facility] Last Admin: 12/04/24 11:55 Dose: 1,000 mg Documented By: ROXANNE Losartan Potassium (Losartan Potassium 25 Mg Tablet) 25 mg PO DAILY [facility]; Protocol Last Admin: 12/04/24 11:54 Dose: 25 mg Documented By: ROXANNE Magnesium Hydroxide (Milk Of Magnesia 30 Ml Oral.Susp) 30 ml PO DAILY PRN PRN Reason: Constipation Last Admin: 12/01/24 07:59 Dose: 30 ml Documented By: RABIA Melatonin (Melatonin 3 Mg Tablet) 6 mg PO BEDTIME PRN PRN Reason: Insomnia Ondansetron HCl (Ondansetron Hcl 4 Mg/2 Ml Vial) 4 mg IVPUSH Q8H PRN PRN Reason: Nausea and Vomiting Last Admin: 12/01/24 08:36 Dose: 4 mg Documented By: RABIA Pharmacy Consult (Consult Rx Vancomycin Dosing) 1 each MISCELLANE DAILY PRN PRN Reason: Consult order Pregabalin (Pregabalin 75 Mg Capsule) 75 mg PO DAILY [facility] Last Admin: 12/04/24 11:55 Dose: 75 mg Documented By: ROXANNE Sevelamer Carbonate (Sevelamer Carbonate Tablet 800 Mg Tablet) 800 mg PO TIDWM [facility] Last Admin: 12/04/24 16:58 Dose: Not Given Documented By: POLLO Non-Admin Reason: Patient Refused Sodium Chloride (0.9 % Sodium Chloride Flush 3 Ml Syringe) 3 ml IVFLUSH QSHIFT [facility] Last Admin: 12/04/24 17:02 Dose: 3 ml Documented By: POLLO Labs 12/04/24 07:40 12/05/24 06:20 Labs: Laboratory Results - last 24 hr 12/03/24 12/04/24 12/04/24 19:57 06:32 07:40 MCV 75.2 L MCH 23.0 L MCHC 30.6 L RDW 17.4 H Plt Count 185 MPV Not Reportable Absolute Nucleated RBC 0.000 Nucleated RBC % (auto) 0.0 Anion Gap 20 Estim Creat Clear Calc 9.7 Estimated GFR 9 POC Glucose 92 121 H Random Glucose 171 H Calcium 8.8 Phosphorus 6.6 H Random Vancomycin 12/04/24 12/04/24 12/04/24 11:39 12:51 16:23 MCV MCH MCHC RDW Plt Count MPV Absolute Nucleated RBC Nucleated RBC % (auto) Anion Gap Estim Creat Clear Calc Estimated GFR POC Glucose 119 H 141 H Random Glucose Calcium Phosphorus Random Vancomycin 12.1 L Assessment and Plan (1) Gangrene due to arterial insufficiency: Status: Acute Plan 69-year-old man with significant past medical history of: * Peripheral vascular disease (PVD) with prior right transmetacarpal amputation (2nd?5th digits) and right below-knee amputation (BKA) * End-stage renal disease (ESRD) on hemodialysis (MWF) * Type 2 diabetes mellitus * Diabetic neuropathy * HypERtension * Seizure disorder * Hyperlipidemia * Obstructive sleep apnea * Chronic hypoxic respiratory failure * Gout Active Issues: 1. Left Foot Ischemia and Gangrene * Left first toe: dry gangrene; left second toe: dark discoloration, likely ischemic * Intractable pain * Leukocytosis and elevated CRP * Empiric antibiotics: vancomycin and zosyn * Continue aspirin and atorvastatin * Vascular surgery consulted; intervention deferred for now * Monitor CBC for trends * Morphine for pain 2. Abdominal Pain / Possible Small Bowel Obstruction (SBO) * Nonspecific bowel gas pattern on imaging; concern for SBO * Abdomen soft, non-distended; NGT removed yesterday * still with N/V, KUB still suggest SBO, * CT 12/01, SBO no transition point * Upper GI and Small bowel series--show ileus * passes small bm this afternoon * Surgery following; conservative management at this time * Liquid diet and advance as lennie * Surgery to make further recommendation 3. End-Stage Renal Disease (ESRD) on Hemodialysis * Hemodialysis on Monday, Monday, Monday * Recent hyperkalemia, but received dialysis yesterday * Check labs today * Nephrology consulted for ongoing dialysis management 4. Type 2 Diabetes Mellitus * Blood glucose checks before meals and at bedtime * Sliding scale insulin while NPO 5. Diabetic Neuropathy * Continue pregabalin 6. Hypertension * Continue losartan, amlodipine, doxazosin, and carvedilol 7. Seizure Disorder * Continue levetiracetam 8. Hyperlipidemia * Continue statin therapy 9. Obstructive Sleep Apnea * Continue CPAP at night 10. Chronic Hypoxic Respiratory Failure * Continue home oxygen at 2 L/min via nasal cannula at night * Bronchodilator therapy as needed 11. Gout * Continue allopurinol Other Orders: * Code status: Full * DVT prophylaxis: Heparin Disposition: Discharge when tolerating regular Plan to continue close monitoring and multidisciplinary management, abd pain/sbo-still has abd pain ,diet not tolerating ,moniter closely ,surgery following Quality Stroke Does the patient have a stroke diagnosis?: No VTE Prior VTE?: No VTE Risk Level:: Medical - moderate - high VTE Device Contraindication: Treatment Not Indicated VTE Drug Contraindication: N/A - Med Ordered
--- NOTE | 2024-12-04 17:24 | HO.PM.IMPN ---
Subjective Subjective Date of Service: 12/05/24 Interval History: Abdominal pain is better, and tolerating liquid, GI serries showed ileus Review of Systems some abd pain Review of Systems: Yes all other systems are reviewed and are negative Physical Exam Exam: Exam: general: AO X 3, no acute distress Resp: CTA bilateral CVS: S1,S2,RRR GI: +BS, mild tenderness in LLq, no distention Skin: No rash Neuro: motor grossly intact Psych: appropriate affect Vital Signs: Vital Signs: Last Vital Signs Temp 97.3 F 12/04/24 15:11 Pulse 58 12/04/24 15:11 Resp 18 12/04/24 15:11 BP 143/65 H 12/04/24 15:11 Pulse Ox 94 12/04/24 15:11 O2 Del Method Room Air 12/04/24 15:11 O2 Flow Rate 2.0 12/01/24 15:48 BMI result Body Mass Index 25.0 Objective Data Active Medications Acetaminophen (Acetaminophen 325 Mg Tablet) 975 mg PO Q6H PRN PRN Reason: Pain, Mild 1-3,fever,headache Last Admin: 11/28/24 14:21 Dose: 975 mg Albuterol Sulfate (Albuterol Sulfate 90 Mcg 8 Gm Inhaler) 2 puff INHALE Q4H PRN PRN Reason: Wheezing Albuterol/Ipratropium (Albuterol/Iprat 2.5/0.5mg 3 Ml Ampul.Neb) 3 ml INHALE QID PRN PRN Reason: Shortness of Breath Allopurinol (Allopurinol 100 Mg Tablet) 100 mg PO MOWEFR REPLACED BY [facility] Last Admin: 12/04/24 11:58 Dose: 100 mg Documented By: ROXANNE Amlodipine Besylate (Amlodipine Besylate 10 Mg Tablet) 10 mg PO DAILY REPLACED BY [facility]; Protocol Last Admin: 12/04/24 11:55 Dose: 10 mg Documented By: ROXANNE Aspirin (Aspirin Enteric Coated 81 Mg Tablet.) 81 mg PO DAILY REPLACED BY [facility] Last Admin: 12/04/24 11:54 Dose: 81 mg Documented By: ROXANNE Calcium Carbonate (Calcium Carbonate 750 Mg Tab.Chew) 750 mg PO Q4H PRN PRN Reason: Heartburn Last Admin: 12/01/24 07:49 Dose: 750 mg Documented By: RABIA Carvedilol (Carvedilol 6.25 Mg Tablet) 6.25 mg PO BID NASRE[facility]; Protocol Last Admin: 12/04/24 11:55 Dose: 6.25 mg Documented By: ROXANNE Dextrose (Dextrose 50 % 25 Gm/50 Ml Syringe) 25 gm IVPUSH Q15M PRN; Protocol PRN Reason: per Hypoglycemia Standing Ord. Last Admin: 11/29/24 11:38 Dose: 25 gm Documented By: FRANCISCO Doxazosin Mesylate (Doxazosin Mesylate 2 Mg Tablet) 4 mg PO BEDTIME [facility]; Protocol Last Admin: 12/03/24 21:57 Dose: 4 mg Documented By: ELISEO Epoetin Keegan-epbx (Epoetin Keegan-Epbx 10,000 Unit/Ml Vial) 10,000 unit SUBCUT MoWeFr@1645 REPLACED BY [facility] Fluticasone/Umeclidinium/Vilanterol (Fluticasone/Umeclidinium/Vilanterol 100/62.5/25 Blst.W.Dev) 1 puff INHALE RDAILY REPLACED BY [facility] Last Admin: 12/04/24 08:08 Dose: Not Given Documented By: SHRUTHI Non-Admin Reason: Not In Room Glucose (Glucose Gel 15 Gm Gel..Gram.) 15 gm PO Q15M PRN; Protocol PRN Reason: per Hypoglycemia Standing Ord. Heparin Sodium (Porcine) (Heparin Sodium,Porcine 5,000 Unit/Ml Vial) 5,000 unit SUBCUT Q12H REPLACED BY [facility] Last Admin: 12/04/24 17:00 Dose: 5,000 unit Documented By: POLLO Comments: Medication given early MD Reid made aware. Heparin Sodium (Porcine) (Heparin Sodium,Porcine 5,000 Unit/Ml Vial) 5,000 unit INTRACATH MOWEFR@1645 REPLACED BY [facility] Last Admin: 12/04/24 17:07 Dose: Not Given Documented By: POLLO Non-Admin Reason: given in HD Piperacillin Sod/Tazobactam (Sod 2.25 gm/ Sodium Chloride) 50 mls @ 100 mls/hr IV Q6H REPLACED BY [facility] Last Infusion: 12/04/24 13:12 Dose: Infused Documented By: ROXANNE Vancomycin HCl 500 mg/ Sodium (Chloride) 110 mls @ 110 mls/hr IV MoWeFr REPLACED BY [facility] Nutrition (Parenteral) (Parenteral Nutrition) 1,080 mls @ 45 mls/hr IV .Q24H REPLACED BY [facility]; Protocol Stop: 12/05/24 20:59 Insulin Glargine (Insulin Glargine,Hum.Rec.Anlog 100 Unit/Ml 10 Ml Vial) 15 unit SUBCUT BEDTIME NASREEN On Hold: 11/28/24 21:00 Insulin Human Lispro (Insulin Lispro 100 Unit/Ml 3 Ml Vial) 0 unit SUBCUT QIDACHS REPLACED BY [facility]; Protocol Last Admin: 12/04/24 17:03 Dose: Not Given Documented By: POLLO Non-Admin Reason: No Insulin Coverage Levetiracetam (Levetiracetam 1,000 Mg Tablet) 1,000 mg PO BID REPLACED BY [facility] Last Admin: 12/04/24 11:55 Dose: 1,000 mg Documented By: ROXANNE Losartan Potassium (Losartan Potassium 25 Mg Tablet) 25 mg PO DAILY REPLACED BY [facility]; Protocol Last Admin: 12/04/24 11:54 Dose: 25 mg Documented By: ROXANNE Magnesium Hydroxide (Milk Of Magnesia 30 Ml Oral.Susp) 30 ml PO DAILY PRN PRN Reason: Constipation Last Admin: 12/01/24 07:59 Dose: 30 ml Documented By: RABIA Melatonin (Melatonin 3 Mg Tablet) 6 mg PO BEDTIME PRN PRN Reason: Insomnia Ondansetron HCl (Ondansetron Hcl 4 Mg/2 Ml Vial) 4 mg IVPUSH Q8H PRN PRN Reason: Nausea and Vomiting Last Admin: 12/01/24 08:36 Dose: 4 mg Documented By: RABIA Pharmacy Consult (Consult Rx Vancomycin Dosing) 1 each MISCELLANE DAILY PRN PRN Reason: Consult order Pregabalin (Pregabalin 75 Mg Capsule) 75 mg PO DAILY REPLACED BY [facility] Last Admin: 12/04/24 11:55 Dose: 75 mg Documented By: ROXANNE Sevelamer Carbonate (Sevelamer Carbonate Tablet 800 Mg Tablet) 800 mg PO TIDWM REPLACED BY [facility] Last Admin: 12/04/24 16:58 Dose: Not Given Documented By: POLLO Non-Admin Reason: Patient Refused Sodium Chloride (0.9 % Sodium Chloride Flush 3 Ml Syringe) 3 ml IVFLUSH QSHIFT REPLACED BY [facility] Last Admin: 12/04/24 17:02 Dose: 3 ml Documented By: POLLO Labs 12/04/24 07:40 12/05/24 06:20 Labs: Laboratory Results - last 24 hr 12/03/24 12/04/24 12/04/24 19:57 06:32 07:40 MCV 75.2 L MCH 23.0 L MCHC 30.6 L RDW 17.4 H Plt Count 185 MPV Not Reportable Absolute Nucleated RBC 0.000 Nucleated RBC % (auto) 0.0 Anion Gap 20 Estim Creat Clear Calc 9.7 Estimated GFR 9 POC Glucose 92 121 H Random Glucose 171 H Calcium 8.8 Phosphorus 6.6 H Random Vancomycin 12/04/24 12/04/24 12/04/24 11:39 12:51 16:23 MCV MCH MCHC RDW Plt Count MPV Absolute Nucleated RBC Nucleated RBC % (auto) Anion Gap Estim Creat Clear Calc Estimated GFR POC Glucose 119 H 141 H Random Glucose Calcium Phosphorus Random Vancomycin 12.1 L Assessment and Plan (1) Gangrene due to arterial insufficiency: Status: Acute Plan 69-year-old man with significant past medical history of: Peripheral vascular disease (PVD) with prior right transmetacarpal amputation (2nd?5th digits) and right below-knee amputation (BKA) End-stage renal disease (ESRD) on hemodialysis (MWF) Type 2 diabetes mellitus Diabetic neuropathy HypERtension Seizure disorder Hyperlipidemia Obstructive sleep apnea Chronic hypoxic respiratory failure Gout Active Issues: 1. Left Foot Ischemia and Gangrene Left first toe: dry gangrene; left second toe: dark discoloration, likely ischemic Intractable pain Leukocytosis and elevated CRP Empiric antibiotics: vancomycin and zosyn Continue aspirin and atorvastatin Vascular surgery consulted; intervention deferred for now Monitor CBC for trends Morphine for pain 2. Abdominal Pain / Possible Small Bowel Obstruction (SBO) Nonspecific bowel gas pattern on imaging; concern for SBO Abdomen soft, non-distended; NGT removed yesterday still with N/V, KUB still suggest SBO, CT 12/01, SBO no transition point Upper GI and Small bowel series--show ileus passes small bm this afternoon Surgery following; conservative management at this time Liquid diet and advance as lennie Surgery to make further recommendation 3. End-Stage Renal Disease (ESRD) on Hemodialysis Hemodialysis on Monday, Monday, Monday Recent hyperkalemia, but received dialysis yesterday Check labs today Nephrology consulted for ongoing dialysis management 4. Type 2 Diabetes Mellitus Blood glucose checks before meals and at bedtime Sliding scale insulin while NPO 5. Diabetic Neuropathy Continue pregabalin 6. Hypertension Continue losartan, amlodipine, doxazosin, and carvedilol 7. Seizure Disorder Continue levetiracetam 8. Hyperlipidemia Continue statin therapy 9. Obstructive Sleep Apnea Continue CPAP at night 10. Chronic Hypoxic Respiratory Failure Continue home oxygen at 2 L/min via nasal cannula at night Bronchodilator therapy as needed 11. Gout Continue allopurinol Other Orders: Code status: Full DVT prophylaxis: Heparin Disposition: Discharge when tolerating regular Plan to continue close monitoring and multidisciplinary management, abd pain/sbo-still has abd pain ,diet not tolerating ,moniter closely ,surgery following Quality Stroke Does the patient have a stroke diagnosis?: No VTE Prior VTE?: No VTE Risk Level:: Medical - moderate - high VTE Device Contraindication: Treatment Not Indicated VTE Drug Contraindication: N/A - Med Ordered
--- NOTE | 2024-12-04 17:51 | PC.NURSE ---
MD Reid made aware pt refusing full liquid diet requesting to eat real food , general surgery made aware. Pt also refusing PO meds and SQ Retacrit at this time. 2100 SQH injection given at 1700, MD Reid and Pharmacy made aware, medication re-timed to 0500 and 1700.
--- NOTE | 2024-12-04 18:20 | PC.NURSE ---
Pt noted to have 1 soft/loose BM incontinent in the bed, positive BS all 4 quads.
--- NOTE | 2024-12-04 18:24 | HO.SKINPHOTO ---
Pt noted to have two areas to left foot. Site directly bellow left great toe is boggy and blister like. Area below that appears to be blister that ruptured. Dr. Reid, Dr. Cannon, and Wound care Nurse made aware via tiger text. Heel offloaded with pillows, all other wounds changed by previous day shift RN. Left foot
[2024-12-04 19:57] VITALS: BP 116/62; PULSE 62; RESP 18; TEMP 36.2; O2SAT 92
[2024-12-04 20:20] LABS: Glucose, Whole Blood 161 mg/dL (60-115)
[2024-12-04] MEDS: Parenteral Nutrition 1,080 ML 45 ML IV (21:14)
[2024-12-05 03:34] VITALS: BP 114/64; PULSE 58; RESP 18; TEMP 36.3; O2SAT 93
[2024-12-05 07:17] LABS: Glucose, Whole Blood 284 mg/dL (60-115)
[2024-12-05] MEDS: Sevelamer Carbonate Tablet 800 MG TABLET PO ×3 (07:32→16:43)
[2024-12-05] MEDS: Aspirin Enteric Coated 81 MG TABLET.DR PO (07:33)
[2024-12-05] MEDS: 0.9 % Sodium Chloride Flush 3 ML SYRINGE IVFLUSH ×3 (07:33→20:56)
[2024-12-05 07:43] LABS: Albumin Level 3.3 g/dL (3.5-5.0); Anion Gap 20 (12-20); Blood Urea Nitrogen 30 mg/dL (9-16); Calcium 9.2 mg/dL (8.4-10.2); Carbon Dioxide 21 mmol/L (22-29); Chloride 101 mmol/L (96-108); Creatinine Clr Calc Pharmacy 12.7; Estimated Glomerular Filt Rate 12; Magnesium 2.5 mg/dL (1.6-2.6); Potassium 3.9 mmol/L (3.3-5.1); Sodium 138 mmol/L (135-145); Triglycerides 139 mg/dL (<150)
[2024-12-05 07:59] VITALS: BP 148/68; PULSE 59; RESP 18; TEMP 36.1; O2SAT 93
[2024-12-05] MEDS: Fluticasone/Umeclidinium/Vilanterol 100/62.5/25 BLST.W.DEV 1 PUFF INHALE (08:29)
[2024-12-05 08:31] VITALS: PULSE 60; RESP 18; O2SAT 96
--- NOTE | 2024-12-05 08:33 | PM.PNGS ---
Subjective Subjective Date of Service: 12/05/24 Interval history: feels somewhat improved today, mild pain in the LLQ. occasional mild nausea. Tolerated full liquid diet last night. Physical Exam Vital Signs: Vital Signs: Last Vital Signs Temp 97.0 F 12/05/24 07:59 Pulse 60 12/05/24 08:31 Resp 18 12/05/24 08:31 BP 148/68 H 12/05/24 07:59 Pulse Ox 93 12/05/24 07:59 O2 Del Method Room Air 12/05/24 07:59 O2 Flow Rate 2.0 12/01/24 15:48 BMI result Body Mass Index 25.0 Const: General: comfortable and no acute distress Orientation/consciousness: patient oriented x3 Resp: Effort & Inspection: normal respiratory effort and able to speak in complete sentences GI: Inspection: No distended Palpation (GI): Soft to palpation and Tenderness to palpation present (GI) in the LLQ Neuro: General: patient oriented x3 Objective Data Active Medications Acetaminophen (Acetaminophen 325 Mg Tablet) 975 mg PO Q6H PRN PRN Reason: Pain, Mild 1-3,fever,headache Last Admin: 12/04/24 20:26 Dose: 975 mg Documented By: ANAM Albuterol Sulfate (Albuterol Sulfate 90 Mcg 8 Gm Inhaler) 2 puff INHALE Q4H PRN PRN Reason: Wheezing Allopurinol (Allopurinol 100 Mg Tablet) 100 mg PO MOWEFR [facility] Last Admin: 12/04/24 11:58 Dose: 100 mg Documented By: ROXANNE Amlodipine Besylate (Amlodipine Besylate 10 Mg Tablet) 10 mg PO DAILY [facility]; Protocol Last Admin: 12/05/24 07:33 Dose: 10 mg Documented By: LISA Aspirin (Aspirin Enteric Coated 81 Mg Tablet.Dr) 81 mg PO DAILY [facility] Last Admin: 12/05/24 07:33 Dose: 81 mg Documented By: LISA Calcium Carbonate (Calcium Carbonate 750 Mg Tab.Chew) 750 mg PO Q4H PRN PRN Reason: Heartburn Last Admin: 12/01/24 07:49 Dose: 750 mg Documented By: RABIA Carvedilol (Carvedilol 6.25 Mg Tablet) 6.25 mg PO BID [facility]; Protocol Last Admin: 12/05/24 07:33 Dose: 6.25 mg Documented By: LISA Dextrose (Dextrose 50 % 25 Gm/50 Ml Syringe) 25 gm IVPUSH Q15M PRN; Protocol PRN Reason: per Hypoglycemia Standing Ord. Last Admin: 11/29/24 11:38 Dose: 25 gm Documented By: FRANCISCO Doxazosin Mesylate (Doxazosin Mesylate 2 Mg Tablet) 4 mg PO BEDTIME [facility]; Protocol Last Admin: 12/04/24 20:16 Dose: 4 mg Documented By: ANAM Epoetin Keegan-epbx (Epoetin Keegan-Epbx 10,000 Unit/Ml Vial) 10,000 unit SUBCUT MoWeFr@1645 [facility] Last Admin: 12/04/24 17:43 Dose: Not Given Documented By: POLLO Non-Admin Reason: Pt refused Fluticasone/Umeclidinium/Vilanterol (Fluticasone/Umeclidinium/Vilanterol 100/62.5/25 Blst.W.Dev) 1 puff INHALE RDAILY [facility] Last Admin: 12/05/24 08:29 Dose: 1 puff Documented By: EVENS Glucose (Glucose Gel 15 Gm Gel..Gram.) 15 gm PO Q15M PRN; Protocol PRN Reason: per Hypoglycemia Standing Ord. Heparin Sodium (Porcine) (Heparin Sodium,Porcine 5,000 Unit/Ml Vial) 5,000 unit INTRACATH MOWEFR@1645 [facility] Last Admin: 12/04/24 17:07 Dose: Not Given Documented By: POLLO Non-Admin Reason: given in HD Heparin Sodium (Porcine) (Heparin Sodium,Porcine 5,000 Unit/Ml Vial) 5,000 unit SUBCUT Q12H [facility] Last Admin: 12/05/24 04:50 Dose: 5,000 unit Documented By: ANAM Piperacillin Sod/Tazobactam (Sod 2.25 gm/ Sodium Chloride) 50 mls @ 100 mls/hr IV Q6H [facility] Last Infusion: 12/05/24 07:38 Dose: Infused Documented By: LISA Vancomycin HCl 500 mg/ Sodium (Chloride) 110 mls @ 110 mls/hr IV MoWeFr [facility] Nutrition (Parenteral) (Parenteral Nutrition) 1,080 mls @ 45 mls/hr IV .Q24H [facility]RE[facility]; Protocol Stop: 12/05/24 20:59 Last Admin: 12/04/24 21:14 Dose: 45 mls/hr Documented By: ANAM Insulin Glargine (Insulin Glargine,Hum.Rec.Anlog 100 Unit/Ml 10 Ml Vial) 15 unit SUBCUT BEDTIME NASREEN On Hold: 11/28/24 21:00 Insulin Human Lispro (Insulin Lispro 100 Unit/Ml 3 Ml Vial) 0 unit SUBCUT QIDACHS [facility]; Protocol Last Admin: 12/05/24 07:32 Dose: 6 unit Documented By: LISA Levetiracetam (Levetiracetam 1,000 Mg Tablet) 1,000 mg PO BID [facility] Last Admin: 12/05/24 07:33 Dose: 1,000 mg Documented By: LISA Losartan Potassium (Losartan Potassium 25 Mg Tablet) 25 mg PO DAILY [facility]; Protocol Last Admin: 12/05/24 07:33 Dose: 25 mg Documented By: LISA Magnesium Hydroxide (Milk Of Magnesia 30 Ml Oral.Susp) 30 ml PO DAILY PRN PRN Reason: Constipation Last Admin: 12/01/24 07:59 Dose: 30 ml Documented By: RABIA Melatonin (Melatonin 3 Mg Tablet) 6 mg PO BEDTIME PRN PRN Reason: Insomnia Ondansetron HCl (Ondansetron Hcl 4 Mg/2 Ml Vial) 4 mg IVPUSH Q8H PRN PRN Reason: Nausea and Vomiting Last Admin: 12/01/24 08:36 Dose: 4 mg Documented By: RABIA Pharmacy Consult (Consult Rx Vancomycin Dosing) 1 each MISCELLANE DAILY PRN PRN Reason: Consult order Pregabalin (Pregabalin 75 Mg Capsule) 75 mg PO DAILY [facility] Last Admin: 12/05/24 07:32 Dose: 75 mg Documented By: LISA Sevelamer Carbonate (Sevelamer Carbonate Tablet 800 Mg Tablet) 800 mg PO TIDWM [facility] Last Admin: 12/05/24 07:32 Dose: 800 mg Documented By: LISA Sodium Chloride (0.9 % Sodium Chloride Flush 3 Ml Syringe) 3 ml IVFLUSH QSHIFT [facility] Last Admin: 12/05/24 07:33 Dose: 3 ml Documented By: LISA Labs 12/04/24 07:40 12/05/24 06:20 Labs: Laboratory Results - last 24 hr 12/04/24 12/04/24 12/04/24 11:39 12:51 16:23 Hold Purple Top Anion Gap Estim Creat Clear Calc Estimated GFR POC Glucose 119 H 141 H Random Glucose Calcium Phosphorus Magnesium Albumin Triglycerides Random Vancomycin 12.1 L 12/04/24 12/05/24 12/05/24 19:56 06:20 07:14 Hold Purple Top SEE NOTE Anion Gap 20 Estim Creat Clear Calc 12.7 Estimated GFR 12 POC Glucose 161 H 284 H Random Glucose 262 H Calcium 9.2 Phosphorus 4.5 Magnesium 2.5 Albumin 3.3 L Triglycerides 139 Random Vancomycin Procedures Date of Service Date of Service: 12/05/24 Progress Note: A&P Assessment and plan (1) Ileus: Status: Acute Plan 69 year old male with multiple comorbidities including PVD s/p right transmetacarpal amputation (2nd-5th digits) and right BKA, ESRD on hemodialysis admitted for left foot wound, followed by surgery for likely ileus. Feeling improved today. Experiencing mild LLQ pain today. endorses some intermittent nausea, no vomiting. Was tolerating full liquid diet although refusing because he wanted to eat solid food. He is passing gas, also passed multiple bowel movements. On exam abdomen is nondistended, mildly tender in the lower left quadrant to palpation. Overall he looks well, ileus likely resolving, we will continue to follow during this admission Advance diet solids, diabetic diet Serial abdominal exams reduce narctoic load as tolerated Time Spent With Patient Time: Total time managing care of this patient today ____ minutes. Quality Stroke Does the patient have a stroke diagnosis?: No VTE Prior VTE?: No VTE Risk Level:: Medical - moderate - high VTE Device Contraindication: Treatment Not Indicated VTE Drug Contraindication: N/A - Med Ordered
--- NOTE | 2024-12-05 10:49 | MHC.CLN ---
F/U DIET ADVANCED TO 1800DM WITH 1500ML FLUID RESTRICTION (PER HD) KITCHEN INSTRUCTED NOT TO GIVE FLUIDS WITH MEALS R/T FLUID RESTRICTION PT TOLERATED F/L DIET 12/04 PER MD REVIEWED LABS DISCUSSED WITH PHARMACY RECOMMEND PPN AT 55ML/HR WITH 72G LIPIDS TO PROVIDE 1393 TOTAL KCALS, 132G DEXTROSE, 56G PROTEIN (1320ML TOTAL VOLUME R/T F.R. FROM PPN) NURSING TO GIVE REMAINING 180ML FLUIDS R/T FLUID RESTRICTION PPN TO BE TURNED OFF DURING DIALYSIS REPLETE LYTES NEEDED MONITOR PO INTAKE CLOSELY GOAL TO REDUCE PPN PO INTAKE IMPROVES
[2024-12-05 11:38] LABS: Glucose, Whole Blood 269 mg/dL (60-115)
--- NOTE | 2024-12-05 13:57 | HO.WOUND ---
Wound Consult Follow up Consult 69yr old?male admitted to [facility] on 11/27/24- See progress notes and H&P for detailed history.? Wound consult follow up for Left calf, Left foot and Right Hand.?Patient agreeable to assessment and photo documentation.? 12/02/24 12/05/24 - Overall improving - drying out Right Hand - site of 2-4 finger amputations Etiology: Nonhealing surgical sites - Arterial Wounds?? Wound beds: dry adherent black necrotic tissue with soft yellow slough under scab / necrotic tissue Medial site 1cm x 1cm x 0.2cm Lateral site no open area noted Irregular edges No induration no fluctance and no warmth noted Treatment - Durafiber for moisture management and autolytic debridement 12/02/24 12/05/24 - Left Foot with new plantar areas of fluctance - TT to provider Dr Reid to re-consult Vascular surgery given new fluctuant sites. Left Great Toe Etiology: Arterial Wounds Wound Bed: dried mummified gangrene plantar areas with soft fluctuant purple pigmentation changes noted - epidermal layer intact - concern for collection. 3.5cm x 2cm x 0cm and 1.4cm x 2cm x 0cm Drainage / Odor: no drainage no odor noted Edges: ? dried and stable Erin wound: mild plantar erythema noted - No Induration, Fluctuance or Warmth noted Pain: denies pain Goals of Treatment: ? [place] with Betadine Prior assessment Right AKA Etiology: Healed diabetic wound Wound Bed: Resurfacing intact scar tissue noted - May leave JARROD. 12/02/24 12/05/24 Left Posterior Calf Etiology: Diabetic Wound?? Wound Bed: improving wound bed pink moist wound bed 2.5cm x 2cm x x0.5cm Drainage / Odor: scant yellow drainage noted on dressing Edges: ? irregular and hyperpigmented Erin wound: scar tissue noted no flutuance and No Induration or Warmth noted Pain: reports pain Goals of Treatment: ? Durafiber for antimicrobial properties No new topical recommendations needed at this time - defer to surgery for plantar assessment and evaluation. Recommendations: 1. Turn and Reposition every 2 hours and as needed for patient comfort.? Use pillows or wedges to support off loading positions. 2. Off Load all bony prominences with use of pillows and heel boots if needed.? Apply Preventative foams where needed. ? 3. Monitor for incontinence and moisture control, use barrier creams when needed for prevention and treatment. 4. Provide adequate and supplemental nutrition.? 5. Order low air loss mattress. 6. When applicable maintain blood glucose levels per Providers order. Left Posterior Calf - Cleanse with normal saline, pat dry. ?Apply barrier to the immediate erin wound, apply durafiber to wound bed cover with dry gauze, ABD pad and gauze wrap, change every other day. Right AKA site - May leave JARROD. Left Great Toe - [place] with Betadine allow to dry. May leave JARROD- if drainage occurs cover with dry gauze. [place] Daily. Right Fingers - Cleanse with saline moist gauze, pat dry. Apply skin prep to periwound, Apply Durafiber AG, followed by gauze and wrap. Change every other day. Re-consult wound care Nurse for wound deterioration or wound changes.
[2024-12-05 15:50] VITALS: BP 101/59; PULSE 60; RESP 16; TEMP 36.2; O2SAT 95
[2024-12-05 16:28] LABS: Glucose, Whole Blood 167 mg/dL (60-115)
--- NOTE | 2024-12-05 16:49 | HO.PM.IMPN ---
Subjective Subjective Date of Service: 12/05/24 Interval History: abd pain Review of Systems Abdominal pain improving, still has occasional nausea, and p.o. intake not yet improving Still feels very weak Physical Exam Exam: Exam: General: AO X 3, no acute distress Resp: CTA bilateral CVS: S1,S2,RRR GI: +BS, hs tenderness in LLq, no distention Skin: No rash Neuro: motor grossly intact Psych: appropriate affect Vital Signs: Vital Signs: Last Vital Signs Temp 97.1 F 12/05/24 15:50 Pulse 60 12/05/24 15:50 Resp 16 12/05/24 15:50 BP 101/59 L 12/05/24 15:50 Pulse Ox 95 12/05/24 15:50 O2 Del Method Nasal Cannula 12/05/24 15:50 O2 Flow Rate 2 12/05/24 15:50 BMI result Body Mass Index 25.0 Objective Data Active Medications Acetaminophen (Acetaminophen 325 Mg Tablet) 975 mg PO Q6H PRN PRN Reason: Pain, Mild 1-3,fever,headache Last Admin: 12/04/24 20:26 Dose: 975 mg Documented By: ANAM Albuterol Sulfate (Albuterol Sulfate 90 Mcg 8 Gm Inhaler) 2 puff INHALE Q4H PRN PRN Reason: Wheezing Allopurinol (Allopurinol 100 Mg Tablet) 100 mg PO MOWEFR [facility] Last Admin: 12/04/24 11:58 Dose: 100 mg Documented By: ROXANNE Amlodipine Besylate (Amlodipine Besylate 10 Mg Tablet) 10 mg PO DAILY [facility]; Protocol Last Admin: 12/05/24 07:33 Dose: 10 mg Documented By: LISA Aspirin (Aspirin Enteric Coated 81 Mg Tablet.Dr) 81 mg PO DAILY [facility] Last Admin: 12/05/24 07:33 Dose: 81 mg Documented By: LISA Calcium Carbonate (Calcium Carbonate 750 Mg Tab.Chew) 750 mg PO Q4H PRN PRN Reason: Heartburn Last Admin: 12/01/24 07:49 Dose: 750 mg Documented By: RABIA Carvedilol (Carvedilol 6.25 Mg Tablet) 6.25 mg PO BID [facility]; Protocol Last Admin: 12/05/24 07:33 Dose: 6.25 mg Documented By: LISA Dextrose (Dextrose 50 % 25 Gm/50 Ml Syringe) 25 gm IVPUSH Q15M PRN; Protocol PRN Reason: per Hypoglycemia Standing Ord. Last Admin: 11/29/24 11:38 Dose: 25 gm Documented By: FRANCISCO Doxazosin Mesylate (Doxazosin Mesylate 2 Mg Tablet) 4 mg PO BEDTIME [facility]; Protocol Last Admin: 12/04/24 20:16 Dose: 4 mg Documented By: ANAM Epoetin Keegan-epbx (Epoetin Keegan-Epbx 10,000 Unit/Ml Vial) 10,000 unit SUBCUT MoWeFr@1645 [facility] Last Admin: 12/04/24 17:43 Dose: Not Given Documented By: POLLO Non-Admin Reason: Pt refused Fluticasone/Umeclidinium/Vilanterol (Fluticasone/Umeclidinium/Vilanterol 100/62.5/25 Blst.W.Dev) 1 puff INHALE RDAILY [facility] Last Admin: 12/05/24 08:29 Dose: 1 puff Documented By: EVENS Glucose (Glucose Gel 15 Gm Gel..Gram.) 15 gm PO Q15M PRN; Protocol PRN Reason: per Hypoglycemia Standing Ord. Heparin Sodium (Porcine) (Heparin Sodium,Porcine 5,000 Unit/Ml Vial) 5,000 unit INTRACATH MOWEFR@1645 [facility] Last Admin: 12/04/24 17:07 Dose: Not Given Documented By: POLLO Non-Admin Reason: given in HD Heparin Sodium (Porcine) (Heparin Sodium,Porcine 5,000 Unit/Ml Vial) 5,000 unit SUBCUT Q12H [facility] Last Admin: 12/05/24 16:43 Dose: 5,000 unit Documented By: LISA Piperacillin Sod/Tazobactam (Sod 2.25 gm/ Sodium Chloride) 50 mls @ 100 mls/hr IV Q6H [facility] Last Infusion: 12/05/24 13:24 Dose: Infused Documented By: LISA Vancomycin HCl 500 mg/ Sodium (Chloride) 110 mls @ 110 mls/hr IV MoWeFr [facility] Nutrition (Parenteral) (Parenteral Nutrition) 1,080 mls @ 45 mls/hr IV .Q24H [facility]; Protocol Stop: 12/05/24 20:59 Last Admin: 12/04/24 21:14 Dose: 45 mls/hr Documented By: ANAM Nutrition (Parenteral) (Parenteral Nutrition) 1,320 mls @ 55 mls/hr IV .Q24H [facility]; Protocol Stop: 12/06/24 20:59 Insulin Glargine (Insulin Glargine,Hum.Rec.Anlog 100 Unit/Ml 10 Ml Vial) 15 unit SUBCUT BEDTIME [facility] On Hold: 11/28/24 21:00 Insulin Human Lispro (Insulin Lispro 100 Unit/Ml 3 Ml Vial) 0 unit SUBCUT QIDACHS [facility]; Protocol Last Admin: 12/05/24 16:41 Dose: 2 unit Documented By: LISA Levetiracetam (Levetiracetam 1,000 Mg Tablet) 1,000 mg PO BID [facility] Last Admin: 12/05/24 07:33 Dose: 1,000 mg Documented By: LISA Losartan Potassium (Losartan Potassium 25 Mg Tablet) 25 mg PO DAILY [facility]; Protocol Last Admin: 12/05/24 07:33 Dose: 25 mg Documented By: LISA Magnesium Hydroxide (Milk Of Magnesia 30 Ml Oral.Susp) 30 ml PO DAILY PRN PRN Reason: Constipation Last Admin: 12/01/24 07:59 Dose: 30 ml Documented By: RABIA Melatonin (Melatonin 3 Mg Tablet) 6 mg PO BEDTIME PRN PRN Reason: Insomnia Ondansetron HCl (Ondansetron Hcl 4 Mg/2 Ml Vial) 4 mg IVPUSH Q8H PRN PRN Reason: Nausea and Vomiting Last Admin: 12/01/24 08:36 Dose: 4 mg Documented By: RABIA Pharmacy Consult (Consult Rx Vancomycin Dosing) 1 each MISCELLANE DAILY PRN PRN Reason: Consult order Pregabalin (Pregabalin 75 Mg Capsule) 75 mg PO DAILY [facility] Last Admin: 12/05/24 07:32 Dose: 75 mg Documented By: LISA Sevelamer Carbonate (Sevelamer Carbonate Tablet 800 Mg Tablet) 800 mg PO TIDWM [facility] Last Admin: 12/05/24 16:43 Dose: 800 mg Documented By: LISA Sodium Chloride (0.9 % Sodium Chloride Flush 3 Ml Syringe) 3 ml IVFLUSH QSHIFT [facility] Last Admin: 12/05/24 16:43 Dose: 3 ml Documented By: LISA Labs 12/04/24 07:40 12/05/24 06:20 Labs: Laboratory Results - last 24 hr 12/04/24 12/05/24 12/05/24 19:56 06:20 07:14 Hold Purple Top SEE NOTE Anion Gap 20 Estim Creat Clear Calc 12.7 Estimated GFR 12 POC Glucose 161 H 284 H Random Glucose 262 H Calcium 9.2 Phosphorus 4.5 Magnesium 2.5 Albumin 3.3 L Triglycerides 139 12/05/24 12/05/24 11:31 16:20 Hold Purple Top Anion Gap Estim Creat Clear Calc Estimated GFR POC Glucose 269 H 167 H Random Glucose Calcium Phosphorus Magnesium Albumin Triglycerides Assessment and Plan (1) Gangrene due to arterial insufficiency: Status: Acute Plan 69-year-old man with significant past medical history of: Peripheral vascular disease (PVD) with prior right transmetacarpal amputation (2nd?5th digits) and right below-knee amputation (BKA) End-stage renal disease (ESRD) on hemodialysis (MWF) Type 2 diabetes mellitus Diabetic neuropathy HypERtension Seizure disorder Hyperlipidemia Obstructive sleep apnea Chronic hypoxic respiratory failure Gout Active Issues: 1. Left Foot Ischemia and Gangrene Left first toe: dry gangrene; left second toe: dark discoloration, likely ischemic Intractable pain Leukocytosis and elevated CRP Empiric antibiotics: vancomycin and zosyn Continue aspirin and atorvastatin Vascular surgery consulted; intervention deferred for now Monitor CBC for trends Morphine for pain 2. Abdominal Pain / Possible Small Bowel Obstruction (SBO) CT 12/01, SBO no transition point,Upper GI and Small bowel series--show ileus Nonspecific bowel gas pattern on imaging; concern for SBO plan: Followed by surgery-Abdomen soft, non-distended; NGT removed still has nausea ,abd pain improving, passing bm's Diet advanced to full liquid. We will advance further as tolerated 3. End-Stage Renal Disease (ESRD) on Hemodialysis Hemodialysis on Monday, Monday, Monday Recent hyperkalemia, but received dialysis yesterday Check labs today Nephrology consulted for ongoing dialysis management 4. Type 2 Diabetes Mellitus Blood glucose checks before meals and at bedtime Sliding scale insulin while NPO 5. Diabetic Neuropathy Continue pregabalin 6. Hypertension Continue losartan, amlodipine, doxazosin, and carvedilol 7. Seizure Disorder Continue levetiracetam 8. Hyperlipidemia Continue statin therapy 9. Obstructive Sleep Apnea Continue CPAP at night 10. Chronic Hypoxic Respiratory Failure Continue home oxygen at 2 L/min via nasal cannula at night Bronchodilator therapy as needed 11. Gout Continue allopurinol Other Orders: Code status: Full DVT prophylaxis: Heparin Wound care: Left posterior calf wound/Left Foot with new plantar areas of fluctance,Left Foot with new plantar areas of fluctance: 1. Turn and Reposition every 2 hours and as needed for patient comfort.? Use pillows or wedges to support off loading positions. 2. Off Load all bony prominences with use of pillows and heel boots if needed.? Apply Preventative foams where needed. ? 3. Monitor for incontinence and moisture control, use barrier creams when needed for prevention and treatment. 4. Provide adequate and supplemental nutrition.? 5. Order low air loss mattress. 6. When applicable maintain blood glucose levels per Providers order. Left Posterior Calf - Cleanse with normal saline, pat dry. ?Apply barrier to the immediate erin wound, apply durafiber to wound bed cover with dry gauze, ABD pad and gauze wrap, change every other day. 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 Left Great Toe - [place] with Betadine allow to dry. May leave JARROD- if drainage occurs cover with dry gauze. [place] Daily. Right Fingers - Cleanse with saline moist gauze, pat dry. Apply skin prep to periwound, Apply Durafiber AG, followed by gauze and wrap. Change every other day. Above was discussed with the vascular mostly dry gangrene area, we will continue to monitor. Disposition: Discharge when tolerating regular Plan to continue close monitoring and multidisciplinary management, abd pain/sbo-still has abd pain ,diet not tolerating ,moniter closely ,surgery following, in addition patient's overall condition discussed with the family in detail length. Quality Stroke Does the patient have a stroke diagnosis?: No VTE Prior VTE?: No VTE Risk Level:: Medical - moderate - high VTE Device Contraindication: Treatment Not Indicated VTE Drug Contraindication: N/A - Med Ordered
--- NOTE | 2024-12-05 17:06 | W.MHC.ACPN ---
Advanced Care Planning Note Advanced Care Planning Note Time spent (in minutes): 30 Narrative: Patient with multiple medical comorbidities including ESRD, PVD, diabetic neuropathy, diabetes, seizure disorder, chronic hypoxemic respiratory failure, obstructive sleep apnea-patient has multiple medical issues including left foot gangrene, also SBO-patient is somewhat improving SBO gee, still p.o. intake is not much better, also has multiple admissions and amputation and progressively declining-discussed with the family in detail-to decide about goal of care, currently patient is full code, we will continue to monitor and family will let us know in next day or so. Problems Discussed (1) Gangrene due to arterial insufficiency:
[2024-12-05] MEDS: traZODone HCL 25 MG HALFTAB PO (18:28)
[2024-12-05 19:03] VITALS: BP 113/56; PULSE 60; RESP 16; TEMP 36.4; O2SAT 94
[2024-12-05 20:20] LABS: Glucose, Whole Blood 200 mg/dL (60-115)
[2024-12-05] MEDS: Parenteral Nutrition 1,320 ML 55 ML IV (20:56)
[2024-12-06 03:44] VITALS: BP 115/59; PULSE 67; RESP 18; TEMP 36.5; O2SAT 95
[2024-12-06 07:27] LABS: Glucose, Whole Blood 244 mg/dL (60-115)
--- NOTE | 2024-12-06 07:55 | HO.PM.IMPN ---
Subjective Subjective Date of Service: 12/06/24 Interval History: abd pain Review of Systems abd pain improving Review of Systems: Yes all other systems are reviewed and are negative Physical Exam Exam: Exam: General: AO X 3, no acute distress Resp: CTA bilateral CVS: S1,S2,RRR GI: +BS, hs tenderness in LLq, no distention Skin: No rash Neuro: motor grossly intact Psych: appropriate affect Vital Signs: Vital Signs: Last Vital Signs Temp 97.7 F 12/06/24 03:44 Pulse 67 12/06/24 03:44 Resp 18 12/06/24 03:44 BP 115/59 L 12/06/24 03:44 Pulse Ox 95 12/06/24 03:44 O2 Del Method Room Air 12/06/24 03:44 O2 Flow Rate 2 12/05/24 15:50 BMI result Body Mass Index 25.0 Objective Data Active Medications Acetaminophen (Acetaminophen 325 Mg Tablet) 975 mg PO Q6H PRN PRN Reason: Pain, Mild 1-3,fever,headache Last Admin: 12/05/24 16:59 Dose: 975 mg Documented By: LISA Albuterol Sulfate (Albuterol Sulfate 90 Mcg 8 Gm Inhaler) 2 puff INHALE Q4H PRN PRN Reason: Wheezing Allopurinol (Allopurinol 100 Mg Tablet) 100 mg PO MOWEFR [facility] Last Admin: 12/04/24 11:58 Dose: 100 mg Documented By: ROXANNE Amlodipine Besylate (Amlodipine Besylate 10 Mg Tablet) 10 mg PO DAILY [facility]; Protocol Last Admin: 12/05/24 07:33 Dose: 10 mg Documented By: LISA Aspirin (Aspirin Enteric Coated 81 Mg Tablet.Dr) 81 mg PO DAILY [facility] Last Admin: 12/05/24 07:33 Dose: 81 mg Documented By: LISA Calcium Carbonate (Calcium Carbonate 750 Mg Tab.Chew) 750 mg PO Q4H PRN PRN Reason: Heartburn Last Admin: 12/01/24 07:49 Dose: 750 mg Documented By: RABIA Carvedilol (Carvedilol 6.25 Mg Tablet) 6.25 mg PO BID [facility]; Protocol Last Admin: 12/05/24 20:57 Dose: 6.25 mg Documented By: ANAM Dextrose (Dextrose 50 % 25 Gm/50 Ml Syringe) 25 gm IVPUSH Q15M PRN; Protocol PRN Reason: per Hypoglycemia Standing Ord. Last Admin: 11/29/24 11:38 Dose: 25 gm Documented By: FRANCISCO Doxazosin Mesylate (Doxazosin Mesylate 2 Mg Tablet) 4 mg PO BEDTIME [facility]; Protocol Last Admin: 12/05/24 20:56 Dose: 4 mg Documented By: ANAM Epoetin Keegan-epbx (Epoetin Keegan-Epbx 10,000 Unit/Ml Vial) 10,000 unit SUBCUT MoWeFr@1645 [facility] Last Admin: 12/04/24 17:43 Dose: Not Given Documented By: POLLO Non-Admin Reason: Pt refused Fluticasone/Umeclidinium/Vilanterol (Fluticasone/Umeclidinium/Vilanterol 100/62.5/ Blst.W.Dev) 1 puff INHALE RDAILY [facility] Last Admin: 12/05/24 08:29 Dose: 1 puff Documented By: EVENS Glucose (Glucose Gel 15 Gm Gel..Gram.) 15 gm PO Q15M PRN; Protocol PRN Reason: per Hypoglycemia Standing Ord. Heparin Sodium (Porcine) (Heparin Sodium,Porcine 5,000 Unit/Ml Vial) 5,000 unit INTRACATH MOWEFR@1645 [facility] Last Admin: 12/04/24 17:07 Dose: Not Given Documented By: POLLO Non-Admin Reason: given in HD Heparin Sodium (Porcine) (Heparin Sodium,Porcine 5,000 Unit/Ml Vial) 5,000 unit SUBCUT Q12H [facility] Last Admin: 12/06/24 04:46 Dose: 5,000 unit Documented By: ANAM Piperacillin Sod/Tazobactam (Sod 2.25 gm/ Sodium Chloride) 50 mls @ 100 mls/hr IV Q6H [facility] Last Infusion: 12/06/24 06:48 Dose: Infused Documented By: ANAM Vancomycin HCl 500 mg/ Sodium (Chloride) 110 mls @ 110 mls/hr IV MoWeFr [facility] Nutrition (Parenteral) (Parenteral Nutrition) 1,320 mls @ 55 mls/hr IV .Q24H [facility]; Protocol Stop: 12/06/24 20:59 Last Admin: 12/05/24 20:56 Dose: 55 mls/hr Documented By: ANAM Insulin Glargine (Insulin Glargine,Hum.Rec.Anlog 100 Unit/Ml 10 Ml Vial) 15 unit SUBCUT BEDTIME [facility] On Hold: 11/28/24 21:00 Insulin Human Lispro (Insulin Lispro 100 Unit/Ml 3 Ml Vial) 0 unit SUBCUT QIDACHS [facility]; Protocol Last Admin: 12/06/24 07:26 Dose: Not Given Documented By: LISA Non-Admin Reason: not eating bfast. in dialysis Levetiracetam (Levetiracetam 1,000 Mg Tablet) 1,000 mg PO BID [facility] Last Admin: 12/05/24 20:56 Dose: 1,000 mg Documented By: ANAM Losartan Potassium (Losartan Potassium 25 Mg Tablet) 25 mg PO DAILY [facility]; Protocol Last Admin: 12/05/24 07:33 Dose: 25 mg Documented By: LISA Magnesium Hydroxide (Milk Of Magnesia 30 Ml Oral.Susp) 30 ml PO DAILY PRN PRN Reason: Constipation Last Admin: 12/01/24 07:59 Dose: 30 ml Documented By: RABIA Melatonin (Melatonin 3 Mg Tablet) 6 mg PO BEDTIME PRN PRN Reason: Insomnia Ondansetron HCl (Ondansetron Hcl 4 Mg/2 Ml Vial) 4 mg IVPUSH Q8H PRN PRN Reason: Nausea and Vomiting Last Admin: 12/01/24 08:36 Dose: 4 mg Documented By: RABIA Pharmacy Consult (Consult Rx Vancomycin Dosing) 1 each MISCELLANE DAILY PRN PRN Reason: Consult order Pharmacy Consult (Consult Rx Parenteral Nutrition Ordering) 1 each MISCELLANE DAILY PRN PRN Reason: Consult order Pregabalin (Pregabalin 75 Mg Capsule) 75 mg PO DAILY [facility] Last Admin: 12/05/24 07:32 Dose: 75 mg Documented By: LISA Sevelamer Carbonate (Sevelamer Carbonate Tablet 800 Mg Tablet) 800 mg PO TIDWM [facility] Last Admin: 12/05/24 16:43 Dose: 800 mg Documented By: LISA Sodium Chloride (0.9 % Sodium Chloride Flush 3 Ml Syringe) 3 ml IVFLUSH QSHIFT [facility] Last Admin: 12/05/24 20:56 Dose: 3 ml Documented By: ANAM Labs 12/04/24 07:40 12/06/24 12:51 Labs: Laboratory Results - last 24 hr 12/05/24 12/05/24 12/05/24 11:31 16:20 20:12 POC Glucose 269 H 167 H 200 H 12/06/24 07:22 POC Glucose 244 H Assessment and Plan (1) Gangrene due to arterial insufficiency: Status: Acute Plan 69-year-old man with significant past medical history of: Peripheral vascular disease (PVD) with prior right transmetacarpal amputation (2nd?5th digits) and right below-knee amputation (BKA) End-stage renal disease (ESRD) on hemodialysis (MWF) Type 2 diabetes mellitus Diabetic neuropathy HypERtension Seizure disorder Hyperlipidemia Obstructive sleep apnea Chronic hypoxic respiratory failure Gout Active Issues: 1. Left Foot Ischemia and Gangrene Left first toe: dry gangrene; left second toe: dark discoloration, likely ischemic Intractable pain Leukocytosis and elevated CRP Empiric antibiotics: vancomycin and zosyn Continue aspirin and atorvastatin Vascular surgery consulted; intervention deferred for now Monitor CBC for trends Morphine for pain 2. Abdominal Pain / Possible Small Bowel Obstruction (SBO) CT 12/01, SBO no transition point,Upper GI and Small bowel series--show ileus Nonspecific bowel gas pattern on imaging; concern for SBO plan: Followed by surgery-Abdomen soft, non-distended; NGT removed still has nausea ,abd pain improving, passing bm's Diet advanced to full liquid. We will advance further as tolerated 3. End-Stage Renal Disease (ESRD) on Hemodialysis Hemodialysis on Monday, Monday, Monday Recent hyperkalemia, but received dialysis yesterday Check labs today Nephrology consulted for ongoing dialysis management 4. Type 2 Diabetes Mellitus Blood glucose checks before meals and at bedtime Sliding scale insulin while NPO 5. Diabetic Neuropathy Continue pregabalin 6. Hypertension Continue losartan, amlodipine, doxazosin, and carvedilol 7. Seizure Disorder Continue levetiracetam 8. Hyperlipidemia Continue statin therapy 9. Obstructive Sleep Apnea Continue CPAP at night 10. Chronic Hypoxic Respiratory Failure Continue home oxygen at 2 L/min via nasal cannula at night Bronchodilator therapy as needed 11. Gout Continue allopurinol Other Orders: Code status: Full DVT prophylaxis: Heparin Wound care: Left posterior calf wound/Left Foot with new plantar areas of fluctance,Left Foot with new plantar areas of fluctance: 1. Turn and Reposition every 2 hours and as needed for patient comfort.? Use pillows or wedges to support off loading positions. 2. Off Load all bony prominences with use of pillows and heel boots if needed.? Apply Preventative foams where needed. ? 3. Monitor for incontinence and moisture control, use barrier creams when needed for prevention and treatment. 4. Provide adequate and supplemental nutrition.? 5. Order low air loss mattress. 6. When applicable maintain blood glucose levels per Providers order. Left Posterior Calf - Cleanse with normal saline, pat dry. ?Apply barrier to the immediate erin wound, apply durafiber to wound bed cover with dry gauze, ABD pad and gauze wrap, change every other day. 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 Left Great Toe - [place] with Betadine allow to dry. May leave JARROD- if drainage occurs cover with dry gauze. [place] Daily. Right Fingers - Cleanse with saline moist gauze, pat dry. Apply skin prep to periwound, Apply Durafiber AG, followed by gauze and wrap. Change every other day. Above was discussed with the vascular mostly dry gangrene area, we will continue to monitor. Disposition: Discharge when tolerating regular Plan to continue close monitoring and multidisciplinary management, abd pain/sbo-moniter abd closely ,surgery following, in addition patient's overall condition discussed with the family in detail length. Quality Stroke Does the patient have a stroke diagnosis?: No VTE Prior VTE?: No VTE Risk Level:: Medical - moderate - high VTE Device Contraindication: Treatment Not Indicated VTE Drug Contraindication: N/A - Med Ordered
--- NOTE | 2024-12-06 10:03 | HO.VASCPN ---
Subjective Subjective Date of Service: 12/06/24 Patient reports: no new complaints and feels better Interval history: Patient seen and examined. No significant events overnight. Appears to be doing somewhat better actually his abdominal pain seems to have improved. He continues to complain of lower extremity pain. He is seen on dialysis this morning. He is on a Monday regimen. Physical Exam Vital Signs: Vital Signs: Last Vital Signs Temp 97.7 F 12/06/24 03:44 Pulse 67 12/06/24 03:44 Resp 18 12/06/24 03:44 BP 115/59 L 12/06/24 03:44 Pulse Ox 95 12/06/24 03:44 O2 Del Method Room Air 12/06/24 03:44 O2 Flow Rate 2 12/05/24 15:50 BMI result Body Mass Index 25.0 Const: General: cooperative, healthy appearing and no acute distress Orientation/consciousness: oriented to person, oriented to place and oriented to time HEENT: Head: Yes normal to inspection Neck: Carotids: no bruits Chest: Chest palpation & inspection: normal inspection of the chest Resp: Effort & Inspection: normal respiratory effort and able to speak in complete sentences Auscultation: clear to auscultation bilaterally Cardio: Rate: regular rate Heart sounds: S1 normal heart sound present and S2 normal heart sound present GI: Inspection: Yes normal to inspection Skin: Other: Left great toe and 2nd toe dry gangrene. Ulcerations noted on the plantar surface as well. General skin exam: no rashes or lesions noted Wounds: no wounds Neuro: General: oriented to person, oriented to place, oriented to time and CN's II-XI intact bilaterally Extrem: General: Yes normal to inspection, Yes full ROM and Yes no clubbing, cyanosis or edema Psych: Appearance: grossly normal and well kempt Speech and movement: Normal speech and movement present Affect: normal affect Progress Note: A&P Assessment and plan (1) Peripheral arterial disease: Status: Acute Assessment and Plan: In short patient has severe peripheral vascular disease. Unfortunately he has multiple comorbidities and has been doing poorly. In terms of his vascular disease and nonhealing ulcers the only thing I would offer him would be an above knee amputation should it reach that point. I do think magalys discussion needs to be had with the family regarding level of care and potential hospice. We will peripherally follow with you. Thank you for allowing us to assist in his care. If there are any questions or concerns please do not hesitate to contact us. Time Spent With Patient Time: Total time managing care of this patient today ____ minutes. Procedures Date of Service Date of Service: 12/06/24 Quality Stroke Does the patient have a stroke diagnosis?: No VTE Prior VTE?: No VTE Risk Level:: Medical - moderate - high VTE Device Contraindication: Treatment Not Indicated VTE Drug Contraindication: N/A - Med Ordered
--- NOTE | 2024-12-06 10:44 | P.PNGS_ITS ---
Subjective Subjective Date of Service: 12/06/24 Interval history: No new complaints, doing okay. Mild pain in the abdomen, complaining more about pain in his foot. Tolerating diet Physical Exam 2 Vital Signs: Vital Signs: Last Vital Signs Temp 97.7 F 12/06/24 03:44 Pulse 67 12/06/24 03:44 Resp 18 12/06/24 03:44 BP 115/59 L 12/06/24 03:44 Pulse Ox 95 12/06/24 03:44 O2 Del Method Room Air 12/06/24 03:44 O2 Flow Rate 2 12/05/24 15:50 BMI result Body Mass Index 25.0 Const: General: comfortable and no acute distress O rientation/consciousness: patient oriented x3 Resp: Effort & Inspection: normal respiratory effort and able to speak in complete sentences GI: Inspection: No distended Palpation (GI): Soft to palpation and nontender Neuro: General: patient oriented x3 Objective Data Active Medications Acetaminophen (Acetaminophen 325 Mg Tablet) 975 mg PO Q6H PRN PRN Reason: Pain, Mild 1-3,fever,headache Last Admin: 12/05/24 16:59 Dose: 975 mg Documented By: LISA Albuterol Sulfate (Albuterol Sulfate 90 Mcg 8 Gm Inhaler) 2 puff INHALE Q4H PRN PRN Reason: Wheezing Allopurinol (Allopurinol 100 Mg Tablet) 100 mg PO MOWEFR [facility] Last Admin: 12/04/24 11:58 Dose: 100 mg Documented By: ROXANNE Amlodipine Besylate (Amlodipine Besylate 10 Mg Tablet) 10 mg PO DAILY [facility]; Protocol Last Admin: 12/05/24 07:33 Dose: 10 mg Documented By: LISA Aspirin (Aspirin Enteric Coated 81 Mg Tablet.Dr) 81 mg PO DAILY [facility] Last Admin: 12/05/24 07:33 Dose: 81 mg Documented By: LISA Calcium Carbonate (Calcium Carbonate 750 Mg Tab.Chew) 750 mg PO Q4H PRN PRN Reason: Heartburn Last Admin: 12/01/24 07:49 Dose: 750 mg Documented By: RABIA Carvedilol (Carvedilol 6.25 Mg Tablet) 6.25 mg PO BID [facility]; Protocol Last Admin: 12/05/24 20:57 Dose: 6.25 mg Documented By: ANAM Dextrose (Dextrose 50 % 25 Gm/50 Ml Syringe) 25 gm IVPUSH Q15M PRN; Protocol PRN Reason: per Hypoglycemia Standing Ord. Last Admin: 11/29/24 11:38 Dose: 25 gm Documented By: FRANCISCO Doxazosin Mesylate (Doxazosin Mesylate 2 Mg Tablet) 4 mg PO BEDTIME [facility]; Protocol Last Admin: 12/05/24 20:56 Dose: 4 mg Documented By: ANAM Epoetin Keegan-epbx (Epoetin Keegan-Epbx 10,000 Unit/Ml Vial) 10,000 unit SUBCUT MoWeFr@1645 [facility] Last Admin: 12/04/24 17:43 Dose: Not Given Documented By: POLLO Non-Admin Reason: Pt refused Fluticasone/Umeclidinium/Vilanterol (Fluticasone/Umeclidinium/Vilanterol 100/62.5/25 Blst.W.Dev) 1 puff INHALE RDAILY [facility] Last Admin: 12/06/24 07:58 Dose: Not Given Documented By: MINNA Non-Admin Reason: Off unit: Dialysis Glucose (Glucose Gel 15 Gm Gel..Gram.) 15 gm PO Q15M PRN; Protocol PRN Reason: per Hypoglycemia Standing Ord. Heparin Sodium (Porcine) (Heparin Sodium,Porcine 5,000 Unit/Ml Vial) 5,000 unit INTRACATH MOWEFR@1645 [facility] Last Admin: 12/04/24 17:07 Dose: Not Given Documented By: POLLO Non-Admin Reason: given in HD Heparin Sodium (Porcine) (Heparin Sodium,Porcine 5,000 Unit/Ml Vial) 5,000 unit SUBCUT Q12H [facility] Last Admin: 12/06/24 04:46 Dose: 5,000 unit Documented By: ANAM Piperacillin Sod/Tazobactam (Sod 2.25 gm/ Sodium Chloride) 50 mls @ 100 mls/hr IV Q6H [facility] Last Infusion: 12/06/24 06:48 Dose: Infused Documented By: ANAM Vancomycin HCl 500 mg/ Sodium (Chloride) 110 mls @ 110 mls/hr IV MoWeFr [facility] Nutrition (Parenteral) (Parenteral Nutrition) 1,320 mls @ 55 mls/hr IV .Q24H [facility]; Protocol Stop: 12/06/24 20:59 Last Admin: 12/05/24 20:56 Dose: 55 mls/hr Documented By: ANAM Insulin Glargine (Insulin Glargine,Hum.Rec.Anlog 100 Unit/Ml 10 Ml Vial) 15 unit SUBCUT BEDTIME [facility] On Hold: 11/28/24 21:00 Insulin Human Lispro (Insulin Lispro 100 Unit/Ml 3 Ml Vial) 0 unit SUBCUT QIDACHS [facility]; Protocol Last Admin: 12/06/24 07:26 Dose: Not Given Documented By: LISA Non-Admin Reason: not eating bfast. in dialysis Levetiracetam (Levetiracetam 1,000 Mg Tablet) 1,000 mg PO BID [facility] Last Admin: 12/05/24 20:56 Dose: 1,000 mg Documented By: ANAM Losartan Potassium (Losartan Potassium 25 Mg Tablet) 25 mg PO DAILY [facility]; Protocol Last Admin: 12/05/24 07:33 Dose: 25 mg Documented By: LISA Magnesium Hydroxide (Milk Of Magnesia 30 Ml Oral.Susp) 30 ml PO DAILY PRN PRN Reason: Constipation Last Admin: 12/01/24 07:59 Dose: 30 ml Documented By: RABIA Melatonin (Melatonin 3 Mg Tablet) 6 mg PO BEDTIME PRN PRN Reason: Insomnia Ondansetron HCl (Ondansetron Hcl 4 Mg/2 Ml Vial) 4 mg IVPUSH Q8H PRN PRN Reason: Nausea and Vomiting Last Admin: 12/01/24 08:36 Dose: 4 mg Documented By: RABIA Pharmacy Consult (Consult Rx Vancomycin Dosing) 1 each MISCELLANE DAILY PRN PRN Reason: Consult order Pharmacy Consult (Consult Rx Parenteral Nutrition Ordering) 1 each MISCELLANE DAILY PRN PRN Reason: Consult order Pregabalin (Pregabalin 75 Mg Capsule) 75 mg PO DAILY [facility] Last Admin: 12/05/24 07:32 Dose: 75 mg Documented By: LISA Sevelamer Carbonate (Sevelamer Carbonate Tablet 800 Mg Tablet) 800 mg PO TIDWM [facility] Last Admin: 12/05/24 16:43 Dose: 800 mg Documented By: LISA Sodium Chloride (0.9 % Sodium Chloride Flush 3 Ml Syringe) 3 ml IVFLUSH QSHIFT [facility] Last Admin: 12/05/24 20:56 Dose: 3 ml Documented By: ANAM Labs 12/04/24 07:40 12/05/24 06:20 Labs: Laboratory Results - last 24 hr 12/05/24 12/05/24 12/05/24 11:31 16:20 20:12 POC Glucose 269 H 167 H 200 H 12/06/24 07:22 POC Glucose 244 H Procedures Date of Service Date of Service: 12/06/24 Progress Note: A&P Assessment and plan (1) Ileus: Status: Acute Plan 69 year old male with multiple comorbidities including PVD s/p right transmetacarpal amputation (2nd-5th digits) and right BKA, ESRD on hemodialysis admitted for left foot wound, followed by surgery for likely ileus. Feeling improved today. Experiencing mild nonspecific pain today. Was tolerating regular diet. He is passing gas, continues to pass daily bowel movements. On exam abdomen is nondistended, mildly tender in the lower left quadrant to palpation. Overall he looks well, ileus appears resolved. we will continue to follow during this admission. General surgery will sign off please can reconsult as needed Continue diabetic diet reduce narctoic load as tolerated Time Spent With Patient Time: Total time managing care of this patient today ____ minutes. Quality Stroke Does the patient have a stroke diagnosis?: No VTE Prior VTE?: No VTE Risk Level:: Medical - moderate - high VTE Device Contraindication: Treatment Not Indicated VTE Drug Contraindication: N/A - Med Ordered
[2024-12-06] MEDS: Aspirin Enteric Coated 81 MG TABLET.DR PO (11:01)
--- NOTE | 2024-12-06 11:13 | MHC.CM.PN ---
Per MD, not medically cleared for dc. Goals of care conversation 12/05. Family is considering and will f/u w/ MD. CM will continue to follow.
[2024-12-06 11:15] LABS: Glucose, Whole Blood 203 mg/dL (60-115)
--- NOTE | 2024-12-06 11:26 | MHC.CLN ---
F/U DIET RX DIABETIC 1800 KCALS WITH 1500 ML FR (PER NEPHROLOGY). PO INTAKE 1 MEAL X 75%, 2 MEALS X 100%. PER PROVIDER, HOLD PPN. PHARMACY AWARE. PATIENT WITH DM AND ESRD ON HEMODIALYSIS. CONTINUE TO FOLLOW FOR PO INTAKE AND LABS. PPN CAN BE DISCONTINUED WITH GOOD PO INTAKE.
[2024-12-06] MEDS: Sevelamer Carbonate Tablet 800 MG TABLET PO ×2 (11:41→16:39)
[2024-12-06] MEDS: traZODone HCL 25 MG HALFTAB PO (12:53)
[2024-12-06 13:15] LABS: Albumin Level 3.1 g/dL (3.5-5.0); Anion Gap 16 (12-20); Blood Urea Nitrogen 20 mg/dL (9-16); Calcium 9.3 mg/dL (8.4-10.2); Carbon Dioxide 27 mmol/L (22-29); Chloride 97 mmol/L (96-108); Creatinine Clr Calc Pharmacy 19.9; Estimated Glomerular Filt Rate 20; Magnesium 2.0 mg/dL (1.6-2.6); Potassium 3.4 mmol/L (3.3-5.1); Sodium 137 mmol/L (135-145)
[2024-12-06 15:45] VITALS: BP 120/61; PULSE 63; RESP 20; TEMP 36.8; O2SAT 92
[2024-12-06 16:37] LABS: Glucose, Whole Blood 314 mg/dL (60-115)
[2024-12-06] MEDS: 0.9 % Sodium Chloride Flush 3 ML SYRINGE IVFLUSH ×2 (16:42→21:41)
[2024-12-06 18:27] VITALS: BP 114/58; PULSE 63; RESP 18; O2SAT 96
[2024-12-06 20:00] VITALS: BP 128/60; PULSE 69; RESP 18; TEMP 36.2; O2SAT 97
[2024-12-06 20:53] LABS: Glucose, Whole Blood 244 mg/dL (60-115)
[2024-12-07 04:00] VITALS: BP 116/54; PULSE 68; RESP 18; TEMP 36.3; O2SAT 95
[2024-12-07 06:49] LABS: Albumin Level 3.0 g/dL (3.5-5.0); Anion Gap 18 (12-20); Blood Urea Nitrogen 37 mg/dL (9-16); Calcium 9.3 mg/dL (8.4-10.2); Carbon Dioxide 23 mmol/L (22-29); Chloride 98 mmol/L (96-108); Creatinine Clr Calc Pharmacy 14.5; Estimated Glomerular Filt Rate 14; Magnesium 1.9 mg/dL (1.6-2.6); Potassium 3.4 mmol/L (3.3-5.1); Sodium 136 mmol/L (135-145)
[2024-12-07 07:24] VITALS: BP 143/65; PULSE 68; RESP 20; TEMP 36.5; O2SAT 96
[2024-12-07 07:25] LABS: Glucose, Whole Blood 202 mg/dL (60-115)
--- NOTE | 2024-12-07 07:58 | P.PNIM_ITS ---
Subjective Subjective Date of Service: 12/07/24 Interval History: abd pain Review of Systems abd pain imrpoved ,seems more awake , po intake improving Review of Systems: Yes all other systems are reviewed and are negative Physical Exam 2 Exam: Exam: General:more awake and alert Resp: CTA bilateral CVS: S1,S2,RRR GI: +BS,, no distention Skin: No rash Neuro: motor grossly intact Psych: appropriate affect Vital Signs: Vital Signs: Last Vital Signs Temp 97.7 F 12/07/24 07:24 Pulse 68 12/07/24 07:24 Resp 20 12/07/24 07:24 BP 143/65 H 12/07/24 07:24 Pulse Ox 96 12/07/24 07:24 O2 Del Method Nasal Cannula 12/07/24 07:24 O2 Flow Rate 2 12/07/24 07:24 BMI result Body Mass Index 25.0 Objective Data Active Medications Acetaminophen (Acetaminophen 325 Mg Tablet) 975 mg PO Q6H PRN PRN Reason: Pain, Mild 1-3,fever,headache Last Admin: 12/05/24 16:59 Dose: 975 mg Documented By: LISA Albuterol Sulfate (Albuterol Sulfate 90 Mcg 8 Gm Inhaler) 2 puff INHALE Q4H PRN PRN Reason: Wheezing Allopurinol (Allopurinol 100 Mg Tablet) 100 mg PO MOWEFR [facility] Last Admin: 12/06/24 11:01 Dose: 100 mg Documented By: LISA Amlodipine Besylate (Amlodipine Besylate 10 Mg Tablet) 10 mg PO DAILY [facility]; Protocol Last Admin: 12/06/24 11:00 Dose: 10 mg Documented By: LISA Aspirin (Aspirin Enteric Coated 81 Mg Tablet.Dr) 81 mg PO DAILY [facility] Last Admin: 12/06/24 11:01 Dose: 81 mg Documented By: LISA Calcium Carbonate (Calcium Carbonate 750 Mg Tab.Chew) 750 mg PO Q4H PRN PRN Reason: Heartburn Last Admin: 12/01/24 07:49 Dose: 750 mg Documented By: RABIA Carvedilol (Carvedilol 6.25 Mg Tablet) 6.25 mg PO BID [facility]; Protocol Last Admin: 12/06/24 21:41 Dose: 6.25 mg Documented By: MYLENE Dextrose (Dextrose 50 % 25 Gm/50 Ml Syringe) 25 gm IVPUSH Q15M PRN; Protocol PRN Reason: per Hypoglycemia Standing Ord. Last Admin: 11/29/24 11:38 Dose: 25 gm Documented By: FRANCISCO Doxazosin Mesylate (Doxazosin Mesylate 2 Mg Tablet) 4 mg PO BEDTIME [facility]; Protocol Last Admin: 12/06/24 21:41 Dose: 4 mg Documented By: MYLENE Epoetin Keegan-epbx (Epoetin Keegan-Epbx 10,000 Unit/Ml Vial) 10,000 unit SUBCUT MoWeFr@1645 [facility] Last Admin: 12/06/24 17:07 Dose: 10,000 unit Documented By: LISA Fluticasone/Umeclidinium/Vilanterol (Fluticasone/Umeclidinium/Vilanterol 100/62.07/28 Blst.W.Dev) 1 puff INHALE RDAILY [facility] Last Admin: 12/06/24 07:58 Dose: Not Given Documented By: MINNA Non-Admin Reason: Off unit: Dialysis Glucose (Glucose Gel 15 Gm Gel..Gram.) 15 gm PO Q15M PRN; Protocol PRN Reason: per Hypoglycemia Standing Ord. Heparin Sodium (Porcine) (Heparin Sodium,Porcine 5,000 Unit/Ml Vial) 5,000 unit INTRACATH MOWEFR@1645 [facility] Last Admin: 12/06/24 12:31 Dose: Not Given Documented By: LISA Non-Admin Reason: Off unit: Dialysis Heparin Sodium (Porcine) (Heparin Sodium,Porcine 5,000 Unit/Ml Vial) 5,000 unit SUBCUT Q12H [facility] Last Admin: 12/07/24 06:09 Dose: 5,000 unit Documented By: SARIAH Piperacillin Sod/Tazobactam (Sod 2.25 gm/ Sodium Chloride) 50 mls @ 100 mls/hr IV Q6H [facility] Last Infusion: 12/07/24 06:41 Dose: Infused Documented By: SARIAH Vancomycin HCl 500 mg/ Sodium (Chloride) 110 mls @ 110 mls/hr IV MoWeFr [facility] Insulin Glargine (Insulin Glargine,Hum.Rec.Anlog 100 Unit/Ml 10 Ml Vial) 15 unit SUBCUT BEDTIME [facility] On Hold: 11/28/24 21:00 Insulin Human Lispro (Insulin Lispro 100 Unit/Ml 3 Ml Vial) 0 unit SUBCUT QIDACHS [facility]; Protocol Last Admin: 12/06/24 21:41 Dose: 4 unit Documented By: MYLENE Levetiracetam (Levetiracetam 1,000 Mg Tablet) 1,000 mg PO BID [facility] Last Admin: 12/06/24 21:41 Dose: 1,000 mg Documented By: MYLENE Losartan Potassium (Losartan Potassium 25 Mg Tablet) 25 mg PO DAILY [facility]; Protocol Last Admin: 12/06/24 11:00 Dose: 25 mg Documented By: LISA Magnesium Hydroxide (Milk Of Magnesia 30 Ml Oral.Susp) 30 ml PO DAILY PRN PRN Reason: Constipation Last Admin: 12/01/24 07:59 Dose: 30 ml Documented By: RABIA Melatonin (Melatonin 3 Mg Tablet) 6 mg PO BEDTIME PRN PRN Reason: Insomnia Ondansetron HCl (Ondansetron Hcl 4 Mg/2 Ml Vial) 4 mg IVPUSH Q8H PRN PRN Reason: Nausea and Vomiting Last Admin: 12/01/24 08:36 Dose: 4 mg Documented By: RABIA Pharmacy Consult (Consult Rx Vancomycin Dosing) 1 each MISCELLANE DAILY PRN PRN Reason: Consult order Pharmacy Consult (Consult Rx Parenteral Nutrition Ordering) 1 each MISCELLANE DAILY PRN PRN Reason: Consult order Pregabalin (Pregabalin 75 Mg Capsule) 75 mg PO DAILY [facility] Last Admin: 12/06/24 11:05 Dose: 75 mg Documented By: LISA Sevelamer Carbonate (Sevelamer Carbonate Tablet 800 Mg Tablet) 800 mg PO TIDWM [facility] Last Admin: 12/06/24 16:39 Dose: 800 mg Documented By: LISA Sodium Chloride (0.9 % Sodium Chloride Flush 3 Ml Syringe) 3 ml IVFLUSH QSHIFT [facility] Last Admin: 12/06/24 21:41 Dose: 3 ml Documented By: MYLENE Trazodone HCl (Trazodone Hcl 25 Mg Halftab) 12.5 mg PO Q6H PRN PRN Reason: Pain, Severe (Pain Scale 7-10) Labs 12/04/24 07:40 12/07/24 05:31 Labs: Laboratory Results - last 24 hr 12/06/24 12/06/24 12/06/24 11:08 12:51 16:29 Hold Purple Top Anion Gap 16 Estim Creat Clear Calc 19.9 Estimated GFR 20 POC Glucose 203 H 314 H Random Glucose 237 H Calcium 9.3 Phosphorus 2.5 L Magnesium 2.0 Albumin 3.1 L Random Vancomycin 12/06/24 12/06/24 12/07/24 17:49 20:49 05:31 Hold Purple Top SEE NOTE Anion Gap 18 Estim Creat Clear Calc 14.5 Estimated GFR 14 POC Glucose 244 H Random Glucose 235 H Calcium 9.3 Phosphorus 3.2 Magnesium 1.9 Albumin 3.0 L Random Vancomycin 13.9 L 12/07/24 07:16 Hold Purple Top Anion Gap Estim Creat Clear Calc Estimated GFR POC Glucose 202 H Random Glucose Calcium Phosphorus Magnesium Albumin Random Vancomycin Assessment and Plan (1) Gangrene due to arterial insufficiency: Status: Acute Plan 69-year-old man with significant past medical history of: * Peripheral vascular disease (PVD) with prior right transmetacarpal amputation (2nd?5th digits) and right below-knee amputation (BKA) * End-stage renal disease (ESRD) on hemodialysis (MWF) * Type 2 diabetes mellitus * Diabetic neuropathy * HypERtension * Seizure disorder * Hyperlipidemia * Obstructive sleep apnea * Chronic hypoxic respiratory failure * Gout Active Issues: 1. Left Foot Ischemia and Gangrene * Left first toe: dry gangrene; left second toe: dark discoloration, likely ischemic * Intractable pain * Leukocytosis and elevated CRP * Empiric antibiotics: vancomycin and zosyn * Continue aspirin and atorvastatin * Vascular surgery consulted; intervention deferred for now * Monitor CBC for trends * Morphine for pain 2. Abdominal Pain / Possible Small Bowel Obstruction (SBO) CT 12/01, SBO no transition point,Upper GI and Small bowel series--show ileus Nonspecific bowel gas pattern on imaging; concern for SBO plan: Followed by surgery-Abdomen soft, non-distended; NGT removed still has nausea ,abd pain improving, passing bm's Diet advanced to full liquid. We will advance further as tolerated 3. End-Stage Renal Disease (ESRD) on Hemodialysis * Hemodialysis on Monday, Monday, Monday * Recent hyperkalemia, but received dialysis yesterday * Check labs today * Nephrology consulted for ongoing dialysis management 4. Type 2 Diabetes Mellitus * Blood glucose checks before meals and at bedtime * Sliding scale insulin while NPO 5. Diabetic Neuropathy * Continue pregabalin 6. Hypertension * Continue losartan, amlodipine, doxazosin, and carvedilol 7. Seizure Disorder * Continue levetiracetam 8. Hyperlipidemia * Continue statin therapy 9. Obstructive Sleep Apnea * Continue CPAP at night 10. Chronic Hypoxic Respiratory Failure * Continue home oxygen at 2 L/min via nasal cannula at night * Bronchodilator therapy as needed 11. Gout * Continue allopurinol Other Orders: * Code status: Full * DVT prophylaxis: Heparin Wound care: Left posterior calf wound/Left Foot with new plantar areas of fluctance,Left Foot with new plantar areas of fluctance: 1. Turn and Reposition every 2 hours and as needed for patient comfort.? Use pillows or wedges to support off loading positions. 2. Off Load all bony prominences with use of pillows and heel boots if needed.? Apply Preventative foams where needed. ? 3. Monitor for incontinence and moisture control, use barrier creams when needed for prevention and treatment. 4. Provide adequate and supplemental nutrition.? 5. Order low air loss mattress. 6. When applicable maintain blood glucose levels per Providers order. Left Posterior Calf - Cleanse with normal saline, pat dry. ?Apply barrier to the immediate erin wound, apply durafiber to wound bed cover with dry gauze, ABD pad and gauze wrap, change every other day. Right AKA site - May leave JARROD. Left Great Toe - [place] with Betadine allow to dry. May leave LINER MAN- if drainage occurs cover with dry gauze. [place] Daily. Right Fingers - Cleanse with saline moist gauze, pat dry. Apply skin prep to periwound, Apply Durafiber AG, followed by gauze and wrap. Change every other day. Above was discussed with the vascular mostly dry gangrene area, we will continue to monitor. Disposition: Discharge when tolerating regular Plan to continue close monitoring and multidisciplinary management, abd pain/sbo-moniter abd closely ,surgery following, in addition patient's overall condition discussed with the family in detail length. Quality Stroke Does the patient have a stroke diagnosis?: No VTE Prior VTE?: No VTE Risk Level:: Medical - moderate - high VTE Device Contraindication: Treatment Not Indicated VTE Drug Contraindication: N/A - Med Ordered
[2024-12-07] MEDS: Fluticasone/Umeclidinium/Vilanterol 100/62.5/25 BLST.W.DEV 1 PUFF INHALE (08:20)
[2024-12-07 08:22] VITALS: PULSE 66; RESP 16
[2024-12-07] MEDS: 0.9 % Sodium Chloride Flush 3 ML SYRINGE IVFLUSH ×3 (08:47→22:19)
[2024-12-07] MEDS: Sevelamer Carbonate Tablet 800 MG TABLET PO (08:50)
[2024-12-07] MEDS: Aspirin Enteric Coated 81 MG TABLET.DR PO (08:50)
[2024-12-07 11:27] LABS: Glucose, Whole Blood 203 mg/dL (60-115)
[2024-12-07 15:51] VITALS: BP 136/63; PULSE 62; RESP 20; TEMP 36.3; O2SAT 98
[2024-12-07 16:14] LABS: Glucose, Whole Blood 234 mg/dL (60-115)
[2024-12-07 20:00] VITALS: BP 102/57; PULSE 62; RESP 19; TEMP 36; O2SAT 95
[2024-12-07 20:39] LABS: Glucose, Whole Blood 217 mg/dL (60-115)
--- NOTE | 2024-12-07 23:05 | PM.EVENT ---
Event Note Date of Service: 12/07/24 Event Note: 10:37 pm - contacted to notify that patient has been more drowsy tonight and disoriented. His vital signs are stable. Blood glucose is 253. 10:50 pm - patient is lethargic, open eyes upon calling his name but closes them quickly. He was continually saying that he is pooping on himself. Pupils equally round. His abdomen looks mildly distended but depressible. Increased bowel sounds in all quadrants. Cardiopulmonary exam is unremarkable. He has hx of ROBERT and on oxygen at nighttime. We will hold supplemental oxygen for now unless patient desires below 90% in case patient has been CO2 retention. We will obtain stat labs including VBG, ammonia, CBC, CMP and lactic acid. Time Spent With Patient Time: Total time managing care of this patient today ____ minutes.
[2024-12-07 23:22] LABS: Venous Blood Gas Refer to POC result
[2024-12-07 23:23] LABS: Hematocrit 33.1 % (42.0-52.0); Hemoglobin 10.4 g/dl (14.0-18.0); Imm Gran Abs Auto 0.15 X10*3/uL (0.00-0.03); Imm Gran Pct Auto 0.8 % (0.0-0.4); Lymphocytes Absolute Auto 1.0 X10*3/uL (1.2-4.9); MANUAL DIFF FLAG NO; Mean Corpuscular HGB Conc 31.4 g/dl (31.0-36.0); Mean Corpuscular Hemoglobin 23.0 pg (27.0-33.0); Mean Corpuscular Volume 73.2 fL (80.0-98.0); NRBC Abs Auto 0.000 X10*3/uL (0.0-0.012); NRBC Pct Auto 0.0 /100WBC (0.0-0.2); PLT CLUMP 1; Red Blood Count 4.52 X10*6/uL (4.60-5.80); SCAN SMEAR FLAG 1; White Blood Count 19.0 X10*3/uL (4.8-10.8)
[2024-12-07 23:25] LABS: VBG HCO3 24 mmol/L (22-26); VBG O2 % Saturation 79.0 %
[2024-12-07 23:30] LABS: Ammonia 18 umol/L (13-55)
[2024-12-07 23:39] LABS: Alanine Aminotransferase < 6 U/L (0-40); Albumin Level 2.9 g/dL (3.5-5.0); Alkaline Phosphatase 155 U/L (39-117); Anion Gap 19 (12-20); Aspartate Amino Transferase 17 U/L (5-37); Blood Urea Nitrogen 49 mg/dL (9-16); Calcium 9.7 mg/dL (8.4-10.2); Carbon Dioxide 24 mmol/L (22-29); Chloride 99 mmol/L (96-108); Creatinine Clr Calc Pharmacy 10.7; Estimated Glomerular Filt Rate 10; Potassium 3.9 mmol/L (3.3-5.1); Sodium 138 mmol/L (135-145); Total Protein 7.1 g/dL (6.5-8.0)
[2024-12-07 23:42] LABS: Platelet Count 235 X10*3/uL (160-400)
[2024-12-07 23:50] LABS: Glucose, Whole Blood 253 mg/dL (60-115)
[2024-12-07 23:51] LABS: Troponin-I High Sensitivity 391.3 ng/L (<3.5-35.0)
--- NOTE | 2024-12-07 23:54 | PC.NURSE ---
On assessment pt was very drowsy and disoriented with a decreasing BP and poor PO intake Dr at bedside to assess, transfer orders obtained to transfer pt to [facility] for further care. Message left for HCP Nestor regarding change of status
[2024-12-08] VITALS (7 sets, daily range): BP systolic 122–138; BP diastolic 60–69; PULSE 59–66; RESP 16–20; TEMP 36.1–37.1; O2SAT 93–100; BMI 22.2
[2024-12-08 07:18] LABS: Glucose, Whole Blood 267 mg/dL (60-115)
[2024-12-08 07:46] LABS: NRBC Abs Auto 0.000 X10*3/uL (0.0-0.012); NRBC Pct Auto 0.0 /100WBC (0.0-0.2)
[2024-12-08 07:48] LABS: Hematocrit 32.5 % (42.0-52.0); Hemoglobin 10.3 g/dl (14.0-18.0); Mean Corpuscular HGB Conc 31.7 g/dl (31.0-36.0); Mean Corpuscular Hemoglobin 23.0 pg (27.0-33.0); Mean Corpuscular Volume 72.7 fL (80.0-98.0); Platelet Count 228 X10*3/uL (160-400); Red Blood Count 4.47 X10*6/uL (4.60-5.80); White Blood Count 18.4 X10*3/uL (4.8-10.8)
[2024-12-08 07:49] LABS: PLT ABN DIST 1
--- NOTE | 2024-12-08 08:13 | P.PNIM_ITS ---
Subjective Subjective Date of Service: 12/09/24 Interval History: abnormal abd ct -extraluminal gas in the adjacent mesentery with associated mesenteric edema. Review of Systems seems similar to yesterday more awake this morning no chest pain does not say any significant pain Review of Systems: Yes all other systems are reviewed and are negative Physical Exam 2 Exam: Exam: General:more awake and alert Resp: CTA bilateral CVS: S1,S2,RRR GI: some distended ( similar abd Skin: No rash Neuro: motor grossly intact Psych: appropriate affect Vital Signs: Vital Signs: Last Vital Signs Temp 98.6 F 12/08/24 07:18 Pulse 65 12/08/24 07:18 Resp 18 12/08/24 07:18 BP 133/65 12/08/24 07:18 Pulse Ox 98 12/08/24 07:18 O2 Del Method Room Air 12/08/24 07:18 O2 Flow Rate 2 12/07/24 15:51 BMI result Body Mass Index 22.2 Objective Data Active Medications Acetaminophen (Acetaminophen 325 Mg Tablet) 975 mg PO Q6H PRN PRN Reason: Pain, Mild 1-3,fever,headache Last Admin: 12/05/24 16:59 Dose: 975 mg Documented By: LISA Albuterol Sulfate (Albuterol Sulfate 90 Mcg 8 Gm Inhaler) 2 puff INHALE Q4H PRN PRN Reason: Wheezing Allopurinol (Allopurinol 100 Mg Tablet) 100 mg PO MOWEFR [facility] Last Admin: 12/06/24 11:01 Dose: 100 mg Documented By: LISA Amlodipine Besylate (Amlodipine Besylate 10 Mg Tablet) 10 mg PO DAILY [facility]; Protocol Last Admin: 12/07/24 08:49 Dose: 10 mg Documented By: LEORA Aspirin (Aspirin Enteric Coated 81 Mg Tablet.Dr) 81 mg PO DAILY [facility] Last Admin: 12/07/24 08:50 Dose: 81 mg Documented By: LEORA Calcium Carbonate (Calcium Carbonate 750 Mg Tab.Chew) 750 mg PO Q4H PRN PRN Reason: Heartburn Last Admin: 12/01/24 07:49 Dose: 750 mg Documented By: RABIA Carvedilol (Carvedilol 6.25 Mg Tablet) 6.25 mg PO BID [facility]; Protocol Last Admin: 12/07/24 21:21 Dose: Not Given Documented By: SARIAH Non-Admin Reason: Decreased Blood Pressure Comments: held per DR Edmonds Dextrose (Dextrose 50 % 25 Gm/50 Ml Syringe) 25 gm IVPUSH Q15M PRN; Protocol PRN Reason: per Hypoglycemia Standing Ord. Last Admin: 11/29/24 11:38 Dose: 25 gm Documented By: FRANCISCO Doxazosin Mesylate (Doxazosin Mesylate 2 Mg Tablet) 4 mg PO BEDTIME [facility]; Protocol Last Admin: 12/07/24 21:22 Dose: Not Given Documented By: SARIAH Non-Admin Reason: Decreased Blood Pressure Comments: Held per DR Edmonds Epoetin Keegan-epbx (Epoetin Keegan-Epbx 10,000 Unit/Ml Vial) 10,000 unit SUBCUT MoWeFr@1645 [facility] Last Admin: 12/06/24 17:07 Dose: 10,000 unit Documented By: LISA Fluticasone/Umeclidinium/Vilanterol (Fluticasone/Umeclidinium/Vilanterol 100/62.5/25 Blst.W.Dev) 1 puff INHALE RDAILY [facility] Last Admin: 12/07/24 08:20 Dose: 1 puff Documented By: PATTIE Glucose (Glucose Gel 15 Gm Gel..Gram.) 15 gm PO Q15M PRN; Protocol PRN Reason: per Hypoglycemia Standing Ord. Heparin Sodium (Porcine) (Heparin Sodium,Porcine 5,000 Unit/Ml Vial) 5,000 unit INTRACATH MOWEFR@1645 [facility] Last Admin: 12/06/24 12:31 Dose: Not Given Documented By: LISA Non-Admin Reason: Off unit: Dialysis Heparin Sodium (Porcine) (Heparin Sodium,Porcine 5,000 Unit/Ml Vial) 5,000 unit SUBCUT Q12H [facility] Last Admin: 12/08/24 05:46 Dose: 5,000 unit Documented By: HIRAL Vancomycin HCl 500 mg/ Sodium (Chloride) 110 mls @ 110 mls/hr IV MoWeFr [facility] Piperacillin Sod/Tazobactam (Sod 2.25 gm/ Sodium Chloride) 50 mls @ 100 mls/hr IV Q8H [facility] Last Infusion: 12/08/24 05:55 Dose: Infused Documented By: HIRAL Sodium Chloride (Ns) 1,000 mls @ 75 mls/hr IVCONT .[id number] [facility] Stop: 12/08/24 16:29 Last Admin: 12/08/24 05:30 Dose: 75 mls/hr Documented By: HIRAL Insulin Glargine (Insulin Glargine,Hum.Rec.Anlog 100 Unit/Ml 10 Ml Vial) 15 unit SUBCUT BEDTIME [facility] Last Admin: 12/07/24 23:02 Dose: Not Given Documented By: SARIAH Non-Admin Reason: per DR Edmonds Insulin Human Lispro (Insulin Lispro 100 Unit/Ml 3 Ml Vial) 0 unit SUBCUT QIDACHS [facility]; Protocol Last Admin: 12/07/24 21:22 Dose: Not Given Documented By: SARIAH Non-Admin Reason: Held per DR Edmonds Levetiracetam (Levetiracetam 1,000 Mg Tablet) 1,000 mg PO BID [facility] Last Admin: 12/07/24 22:17 Dose: 1,000 mg Documented By: SARIAH Losartan Potassium (Losartan Potassium 25 Mg Tablet) 25 mg PO DAILY [facility]; Protocol Last Admin: 12/07/24 08:49 Dose: 25 mg Documented By: LEORA Magnesium Hydroxide (Milk Of Magnesia 30 Ml Oral.Susp) 30 ml PO DAILY PRN PRN Reason: Constipation Last Admin: 12/01/24 07:59 Dose: 30 ml Documented By: RABIA Melatonin (Melatonin 3 Mg Tablet) 6 mg PO BEDTIME PRN PRN Reason: Insomnia Ondansetron HCl (Ondansetron Hcl 4 Mg/2 Ml Vial) 4 mg IVPUSH Q8H PRN PRN Reason: Nausea and Vomiting Last Admin: 12/01/24 08:36 Dose: 4 mg Documented By: RABIA Pharmacy Consult (Consult Rx Parenteral Nutrition Ordering) 1 each MISCELLANE DAILY PRN PRN Reason: Consult order Pregabalin (Pregabalin 75 Mg Capsule) 75 mg PO DAILY [facility] Last Admin: 12/07/24 08:50 Dose: 75 mg Documented By: LEORA Sevelamer Carbonate (Sevelamer Carbonate Tablet 800 Mg Tablet) 800 mg PO TIDWM [facility] Last Admin: 12/07/24 18:06 Dose: Not Given Documented By: LEORA Non-Admin Reason: Patient Refused Sodium Chloride (0.9 % Sodium Chloride Flush 3 Ml Syringe) 3 ml IVFLUSH QSHIFT [facility] Last Admin: 12/07/24 22:19 Dose: 3 ml Documented By: SARIAH Trazodone HCl (Trazodone Hcl 25 Mg Halftab) 12.5 mg PO Q6H PRN PRN Reason: Pain, Severe (Pain Scale 7-10) Labs 12/08/24 06:59 12/08/24 06:59 Labs: Laboratory Results - last 24 hr 12/07/24 12/07/24 12/07/24 11:22 16:10 20:35 MCV MCH MCHC RDW Plt Count MPV Immature Gran % (Auto) Neut % (Auto) Lymph % (Auto) Cassia % (Auto) Eos % (Auto) Baso % (Auto) Lymph # (Auto) Cassia # (Auto) Eos # (Auto) Baso # (Auto) Abs Immat Gran (auto) Absolute Neuts (auto) Absolute Nucleated RBC Nucleated RBC % (auto) VBG pH VBG pCO2 VBG pO2 VBG HCO3 VBG O2 Saturation VBG Base Excess Anion Gap Estim Creat Clear Calc Estimated GFR POC Glucose 203 H 234 H 217 H Random Glucose Lactic Acid Calcium Total Bilirubin AST ALT Alkaline Phosphatase Ammonia Troponin I High Sens Total Protein Albumin 12/07/24 12/07/24 12/07/24 22:48 23:14 23:20 MCV 73.2 L MCH 23.0 L MCHC 31.4 RDW 17.4 H Plt Count 235 D MPV Not Reportable Immature Gran % (Auto) 0.8 H Neut % (Auto) 88.3 H Lymph % (Auto) 5.5 L Cassia % (Auto) 5.0 Eos % (Auto) 0.3 Baso % (Auto) 0.1 Lymph # (Auto) 1.0 L Cassia # (Auto) 0.9 Eos # (Auto) 0.1 Baso # (Auto) 0.0 Abs Immat Gran (auto) 0.15 H Absolute Neuts (auto) 16.8 H Absolute Nucleated RBC 0.000 Nucleated RBC % (auto) 0.0 VBG pH 7.36 VBG pCO2 42 VBG pO2 56 VBG HCO3 24 VBG O2 Saturation 79.0 VBG Base Excess -0.8 Anion Gap 19 Estim Creat Clear Calc 10.7 Estimated GFR 10 POC Glucose 253 H Random Glucose 267 H Lactic Acid 1.3 Calcium 9.7 Total Bilirubin 0.3 AST 17 ALT < 6 Alkaline Phosphatase 155 H Ammonia 18 Troponin I High Sens 391.3 H* D Total Protein 7.1 Albumin 2.9 L 12/08/24 12/08/24 06:59 07:14 MCV 72.7 L MCH 23.0 L MCHC 31.7 RDW 17.3 H Plt Count 228 MPV Not Reportable Immature Gran % (Auto) Neut % (Auto) Lymph % (Auto) Cassia % (Auto) Eos % (Auto) Baso % (Auto) Lymph # (Auto) Cassia # (Auto) Eos # (Auto) Baso # (Auto) Abs Immat Gran (auto) Absolute Neuts (auto) Absolute Nucleated RBC 0.000 Nucleated RBC % (auto) 0.0 VBG pH VBG pCO2 VBG pO2 VBG HCO3 VBG O2 Saturation VBG Base Excess Anion Gap Estim Creat Clear Calc Estimated GFR POC Glucose 267 H Random Glucose Lactic Acid Calcium Total Bilirubin AST ALT Alkaline Phosphatase Ammonia Troponin I High Sens Total Protein Albumin Assessment and Plan (1) Gangrene due to arterial insufficiency: Status: Acute Plan 69-year-old man with significant past medical history of: * Peripheral vascular disease (PVD) with prior right transmetacarpal amputation (2nd?5th digits) and right below-knee amputation (BKA) * End-stage renal disease (ESRD) on hemodialysis (MWF) * Type 2 diabetes mellitus * Diabetic neuropathy * HypERtension * Seizure disorder * Hyperlipidemia * Obstructive sleep apnea * Chronic hypoxic respiratory failure * Gout Active Issues: Abdominal Pain / Possible Small Bowel Obstruction (SBO) CT 12/01, SBO no transition point,Upper GI and Small bowel series--show ileus Nonspecific bowel gas pattern on imaging; concern for SBO ct abd last night- extraluminal gas in the adjacent mesentery with associated mesenteric edema. Finding may reflect contained perforation versus mesenteric venous gas concerning for ischemic bowel last night events notded. plan: denies abd pain,more awake this afternoon no nausea or vomiting Followed by surgery-ct abd noted . clear liquid diet elevated troponins :flat, though to be demand/esrd. denies any chest pain elevated trop ekg seems similar to prior added echo. Left Foot Ischemia and Gangrene Left first toe: dry gangrene; left second toe: dark discoloration, likely ischemic Intractable pain Leukocytosis and elevated CRP Empiric antibiotics: vancomycin and zosyn Continue aspirin and atorvastatin Vascular surgery consulted; intervention deferred for now Monitor CBC for trends End-Stage Renal Disease (ESRD) on Hemodialysis Hemodialysis on Monday, Monday, Monday Recent hyperkalemia, but received dialysis yesterday Check labs today Nephrology consulted for ongoing dialysis management Type 2 Diabetes Mellitus Blood glucose checks before meals and at bedtime. hold lantus until on clears Sliding scale insulin while NPO Diabetic Neuropathy hold pregabalin -avoid sedating meds. Hypertension hold losartan, amlodipine, doxazosin, and carvedilol-bp running 100-120's Seizure Disorder changed to iv levetiracetam Hyperlipidemia Continue statin therapy Obstructive Sleep Apnea Continue CPAP at night Chronic Hypoxic Respiratory Failure Continue home oxygen at 2 L/min via nasal cannula at night Bronchodilator therapy as needed Gout Continue allopurinol Other Orders: Code status: Full. DVT prophylaxis: Heparin Wound care: Left posterior calf wound/Left Foot with new plantar areas of fluctance,Left Foot with new plantar areas of fluctance: 1. Turn and Reposition every 2 hours and as needed for patient comfort.? Use pillows or wedges to support off loading positions. 2. Off Load all bony prominences with use of pillows and heel boots if needed.? Apply Preventative foams where needed. ? 3. Monitor for incontinence and moisture control, use barrier creams when needed for prevention and treatment. 4. Provide adequate and supplemental nutrition.? 5. Order low air loss mattress. 6. When applicable maintain blood glucose levels per Providers order. Left Posterior Calf - Cleanse with normal saline, pat dry. ?Apply barrier to the immediate erin wound, apply durafiber to wound bed cover with dry gauze, ABD pad and gauze wrap, change every other day. Right AKA site - May leave [employer]. Left Great Toe - [place]rall with Betadine allow to dry. May leave JARROD- if drainage occurs cover with dry gauze. [place] Daily. Right Fingers - Cleanse with saline moist gauze, pat dry. Apply skin prep to periwound, Apply Durafiber AG, followed by gauze and wrap. Change every other day. Above was discussed with the vascular mostly dry gangrene area, we will continue to monitor. Above management discussed with the family in detail length overall prognosis is poor, they understand-leaning towards more conservative care but would able to decide by tomorrow. Quality Stroke Does the patient have a stroke diagnosis?: No VTE Prior VTE?: No VTE Risk Level:: Medical - moderate - high VTE Device Contraindication: Treatment Not Indicated VTE Drug Contraindication: N/A - Med Ordered
[2024-12-08 08:26] LABS: Albumin Level 2.8 g/dL (3.5-5.0); Anion Gap 20 (12-20); Blood Urea Nitrogen 54 mg/dL (9-16); Calcium 9.6 mg/dL (8.4-10.2); Carbon Dioxide 21 mmol/L (22-29); Chloride 100 mmol/L (96-108); Creatinine Clr Calc Pharmacy 9.7; Estimated Glomerular Filt Rate 9; Magnesium 2.0 mg/dL (1.6-2.6); Potassium 3.7 mmol/L (3.3-5.1); Sodium 137 mmol/L (135-145)
[2024-12-08 08:27] LABS: Troponin-I High Sensitivity 317.0 ng/L (<3.5-35.0)
--- NOTE | 2024-12-08 08:59 | MHC.CLN ---
F/U PT RETURNED TO NPO PER MD REVIEWED LABS DISCUSSED WITH PHARMACY AND PROVIDER-PLAN TO RE-START PPN RECOMMEND PPN AT 55ML/HR WITH 72G LIPIDS TO PROVIDE 1393 TOTAL KCALS, 132G DEXTROSE, 56G PROTEIN (1320ML TOTAL VOLUME R/T F.R. FROM PPN) PPN TO BE TURNED OFF DURING DIALYSIS REPLETE LYTES NEEDED FOLLOWING WITH TEAM
[2024-12-08 11:03] LABS: Glucose, Whole Blood 275 mg/dL (60-115)
[2024-12-08] MEDS: levETIRAcetam in NaCl (iso-os) 1,000 MG/100 ML PIGGYBACK 400 MG IV ×2 (11:15→21:56)
[2024-12-08] MEDS: 0.9 % Sodium Chloride Flush 3 ML SYRINGE IVFLUSH ×3 (11:27→20:46)
[2024-12-08 11:39] LABS: Troponin-I High Sensitivity 293.5 ng/L (<3.5-35.0)
[2024-12-08 13:23] LABS: Anion Gap 21 (12-20); Blood Urea Nitrogen 54 mg/dL (9-16); Calcium 9.5 mg/dL (8.4-10.2); Carbon Dioxide 20 mmol/L (22-29); Chloride 100 mmol/L (96-108); Creatinine Clr Calc Pharmacy 9.8; Estimated Glomerular Filt Rate 9; Potassium 3.8 mmol/L (3.3-5.1); Sodium 137 mmol/L (135-145)
--- NOTE | 2024-12-08 15:20 | P.PNGS_ITS ---
Subjective Subjective Date of Service: 12/08/24 Interval history: Overnight the patient became more lethargic and confused and hospitalist carried out repeat labs and CT scan of his abdomen and pelvis. White count remained stable at [address] scan concerning for potential mesenteric ischemic bowel possible contained perforation continue the obstruction. Patient had small-bowel follow-through about 3 days ago which did not reveal any obstruction.. Patient however not looking sick and doing better in the morning. Patient has been difficult not allowing nursing staff to hang his meds start IVs and help with the basic care that he needs. He is tired of living this way in really does not want any further interventions. Denies any significant abdominal pain is hungry and thirsty and wants to eat Physical Exam 2 Vital Signs: Vital Signs: Last Vital Signs Temp 97.7 F 12/08/24 11:04 Pulse 65 12/08/24 11:04 Resp 20 12/08/24 11:04 BP 138/68 12/08/24 11:04 Pulse Ox 93 12/08/24 11:04 O2 Del Method Room Air 12/08/24 11:04 O2 Flow Rate 2 12/07/24 15:51 BMI result Body Mass Index 22.2 GI: Other: Abdomen is soft nondistended he is tender in the midabdomen mild guarding no rebound no peritoneal signs present bowel sounds Objective Data Active Medications Acetaminophen (Acetaminophen 325 Mg Tablet) 975 mg PO Q6H PRN PRN Reason: Pain, Mild 1-3,fever,headache Last Admin: 12/05/24 16:59 Dose: 975 mg Documented By: LISA Albuterol Sulfate (Albuterol Sulfate 90 Mcg 8 Gm Inhaler) 2 puff INHALE Q4H PRN PRN Reason: Wheezing Allopurinol (Allopurinol 100 Mg Tablet) 100 mg PO MOWEFR [facility] Last Admin: 12/06/24 11:01 Dose: 100 mg Documented By: LISA Amlodipine Besylate (Amlodipine Besylate 10 Mg Tablet) 10 mg PO DAILY [facility]; Protocol Last Admin: 12/08/24 11:37 Dose: Not Given Documented By: RODRI Non-Admin Reason: NPO Aspirin (Aspirin Enteric Coated 81 Mg Tablet.) 81 mg PO DAILY [facility] Last Admin: 12/08/24 11:37 Dose: Not Given Documented By: RODRI Non-Admin Reason: NPO Calcium Carbonate (Calcium Carbonate 750 Mg Tab.Chew) 750 mg PO Q4H PRN PRN Reason: Heartburn Last Admin: 12/01/24 07:49 Dose: 750 mg Documented By: RABIA Carvedilol (Carvedilol 6.25 Mg Tablet) 6.25 mg PO BID [facility]; Protocol Last Admin: 12/08/24 11:37 Dose: Not Given Documented By: RODRI Non-Admin Reason: NPO Dextrose (Dextrose 50 % 25 Gm/50 Ml Syringe) 25 gm IVPUSH Q15M PRN; Protocol PRN Reason: per Hypoglycemia Standing Ord. Last Admin: 11/29/24 11:38 Dose: 25 gm Documented By: FRANCISCO Doxazosin Mesylate (Doxazosin Mesylate 2 Mg Tablet) 4 mg PO BEDTIME [facility]; Protocol Last Admin: 12/07/24 21:22 Dose: Not Given Documented By: SARIAH Non-Admin Reason: Decreased Blood Pressure Comments: Held per DR Edmonds Epoetin Keegan-epbx (Epoetin Keegan-Epbx 10,000 Unit/Ml Vial) 10,000 unit SUBCUT MoWeFr@1645 [facility] Last Admin: 12/06/24 17:07 Dose: 10,000 unit Documented By: LISA Fluticasone/Umeclidinium/Vilanterol (Fluticasone/Umeclidinium/Vilanterol 100/62.5/25 Blst.W.Dev) 1 puff INHALE RDAILY [facility] Last Admin: 12/08/24 11:09 Dose: Not Given Documented By: JESSICA Non-Admin Reason: Med Not Available Glucose (Glucose Gel 15 Gm Gel..Gram.) 15 gm PO Q15M PRN; Protocol PRN Reason: per Hypoglycemia Standing Ord. Heparin Sodium (Porcine) (Heparin Sodium,Porcine 5,000 Unit/Ml Vial) 5,000 unit INTRACATH MOWEFR@1645 [facility] Last Admin: 12/06/24 12:31 Dose: Not Given Documented By: LISA Non-Admin Reason: Off unit: Dialysis Heparin Sodium (Porcine) (Heparin Sodium,Porcine 5,000 Unit/Ml Vial) 5,000 unit SUBCUT Q12H [facility] Last Admin: 12/08/24 05:46 Dose: 5,000 unit Documented By: HIRAL Vancomycin HCl 500 mg/ Sodium (Chloride) 110 mls @ 110 mls/hr IV MoWeFr [facility] Piperacillin Sod/Tazobactam (Sod 2.25 gm/ Sodium Chloride) 50 mls @ 100 mls/hr IV Q8H [facility] Last Infusion: 12/08/24 12:35 Dose: Infused Documented By: RODRI Sodium Chloride (Ns) 1,000 mls @ 75 mls/hr IVCONT .[id number] [facility] Stop: 12/08/24 16:29 Last Admin: 12/08/24 05:30 Dose: 75 mls/hr Documented By: HIRAL Nutrition (Parenteral) (Parenteral Nutrition) 1,320 mls @ 55 mls/hr IV .Q24H [facility]; Protocol Stop: 12/09/24 20:59 Levetiracetam (Keppra) 1,000 mg in 100 mls @ 400 mls/hr IV BID [facility] Last Infusion: 12/08/24 11:38 Dose: Infused Documented By: RODRI Insulin Glargine (Insulin Glargine,Hum.Rec.Anlog 100 Unit/Ml 10 Ml Vial) 15 unit SUBCUT BEDTIME [facility] Last Admin: 12/07/24 23:02 Dose: Not Given Documented By: SARIAH Non-Admin Reason: per DR Edmonds Insulin Human Lispro (Insulin Lispro 100 Unit/Ml 3 Ml Vial) 0 unit SUBCUT QIDACHS [facility]; Protocol Last Admin: 12/08/24 11:28 Dose: 6 unit Documented By: RODRI Levetiracetam (Levetiracetam 1,000 Mg Tablet) 1,000 mg PO BID [facility] Last Admin: 12/08/24 11:37 Dose: Not Given Documented By: RODRI Non-Admin Reason: NPO Losartan Potassium (Losartan Potassium 25 Mg Tablet) 25 mg PO DAILY [facility]; Protocol Last Admin: 12/08/24 11:37 Dose: Not Given Documented By: RODRI Non-Admin Reason: NPO Magnesium Hydroxide (Milk Of Magnesia 30 Ml Oral.Susp) 30 ml PO DAILY PRN PRN Reason: Constipation Last Admin: 12/01/24 07:59 Dose: 30 ml Documented By: RABIA Melatonin (Melatonin 3 Mg Tablet) 6 mg PO BEDTIME PRN PRN Reason: Insomnia Ondansetron HCl (Ondansetron Hcl 4 Mg/2 Ml Vial) 4 mg IVPUSH Q8H PRN PRN Reason: Nausea and Vomiting Last Admin: 12/01/24 08:36 Dose: 4 mg Documented By: RABIA Pharmacy Consult (Consult Rx Parenteral Nutrition Ordering) 1 each MISCELLANE DAILY PRN PRN Reason: Consult order Pregabalin (Pregabalin 75 Mg Capsule) 75 mg PO DAILY [facility] Last Admin: 12/08/24 11:37 Dose: Not Given Documented By: RODRI Non-Admin Reason: NPO Sevelamer Carbonate (Sevelamer Carbonate Tablet 800 Mg Tablet) 800 mg PO TIDWM [facility] Last Admin: 12/08/24 12:35 Dose: Not Given Documented By: RODRI Non-Admin Reason: NPO Sodium Chloride (0.9 % Sodium Chloride Flush 3 Ml Syringe) 3 ml IVFLUSH QSHIFT [facility] Last Admin: 12/08/24 11:27 Dose: 3 ml Documented By: RODRI Trazodone HCl (Trazodone Hcl 25 Mg Halftab) 12.5 mg PO Q6H PRN PRN Reason: Pain, Severe (Pain Scale 7-10) Labs 12/08/24 06:59 12/08/24 06:59 Labs: Laboratory Results - last 24 hr 12/07/24 12/07/24 12/07/24 16:10 20:35 22:48 MCV MCH MCHC RDW Plt Count MPV Immature Gran % (Auto) Neut % (Auto) Lymph % (Auto) Vernon % (Auto) Eos % (Auto) Baso % (Auto) Lymph # (Auto) Vernon # (Auto) Eos # (Auto) Baso # (Auto) Abs Immat Gran (auto) Absolute Neuts (auto) Absolute Nucleated RBC Nucleated RBC % (auto) VBG pH VBG pCO2 VBG pO2 VBG HCO3 VBG O2 Saturation VBG Base Excess Anion Gap Estim Creat Clear Calc Estimated GFR POC Glucose 234 H 217 H 253 H Random Glucose Lactic Acid Calcium Phosphorus Magnesium Total Bilirubin AST ALT Alkaline Phosphatase Ammonia Troponin I High Sens Total Protein Albumin 12/07/24 12/07/24 12/08/24 23:14 23:20 06:59 MCV 73.2 L 72.7 L MCH 23.0 L 23.0 L MCHC 31.4 31.7 RDW 17.4 H 17.3 H Plt Count 235 D 228 MPV Not Reportable Not Reportable Immature Gran % (Auto) 0.8 H Neut % (Auto) 88.3 H Lymph % (Auto) 5.5 L Vernon % (Auto) 5.0 Eos % (Auto) 0.3 Baso % (Auto) 0.1 Lymph # (Auto) 1.0 L Vernon # (Auto) 0.9 Eos # (Auto) 0.1 Baso # (Auto) 0.0 Abs Immat Gran (auto) 0.15 H Absolute Neuts (auto) 16.8 H Absolute Nucleated RBC 0.000 0.000 Nucleated RBC % (auto) 0.0 0.0 VBG pH 7.36 VBG pCO2 42 VBG pO2 56 VBG HCO3 24 VBG O2 Saturation 79.0 VBG Base Excess -0.8 Anion Gap 19 20 Estim Creat Clear Calc 10.7 Estimated GFR 10 POC Glucose Random Glucose 267 H Lactic Acid 1.3 Calcium 9.7 Phosphorus Magnesium Total Bilirubin 0.3 AST 17 ALT < 6 Alkaline Phosphatase 155 H Ammonia 18 Troponin I High Sens 391.3 H* D Total Protein 7.1 Albumin 2.9 L 12/08/24 12/08/24 12/08/24 06:59 06:59 06:59 MCV MCH MCHC RDW Plt Count MPV Immature Gran % (Auto) Neut % (Auto) Lymph % (Auto) Vernon % (Auto) Eos % (Auto) Baso % (Auto) Lymph # (Auto) Vernon # (Auto) Eos # (Auto) Baso # (Auto) Abs Immat Gran (auto) Absolute Neuts (auto) Absolute Nucleated RBC Nucleated RBC % (auto) VBG pH VBG pCO2 VBG pO2 VBG HCO3 VBG O2 Saturation VBG Base Excess Anion Gap 21 H Estim Creat Clear Calc 9.7 9.8 Estimated GFR 9 9 POC Glucose Random Glucose 262 H Lactic Acid Calcium Phosphorus Magnesium Total Bilirubin AST ALT Alkaline Phosphatase Ammonia Troponin I High Sens Total Protein Albumin 12/08/24 12/08/24 12/08/24 06:59 06:59 07:14 MCV MCH MCHC RDW Plt Count MPV Immature Gran % (Auto) Neut % (Auto) Lymph % (Auto) Vernon % (Auto) Eos % (Auto) Baso % (Auto) Lymph # (Auto) Vernon # (Auto) Eos # (Auto) Baso # (Auto) Abs Immat Gran (auto) Absolute Neuts (auto) Absolute Nucleated RBC Nucleated RBC % (auto) VBG pH VBG pCO2 VBG pO2 VBG HCO3 VBG O2 Saturation VBG Base Excess Anion Gap Estim Creat Clear Calc Estimated GFR POC Glucose 267 H Random Glucose 259 H Lactic Acid Calcium 9.6 9.5 Phosphorus 4.4 Magnesium 2.0 Total Bilirubin AST ALT Alkaline Phosphatase Ammonia Troponin I High Sens 317.0 H* Total Protein Albumin 2.8 L 12/08/24 12/08/24 10:51 10:53 MCV MCH MCHC RDW Plt Count MPV Immature Gran % (Auto) Neut % (Auto) Lymph % (Auto) Vernon % (Auto) Eos % (Auto) Baso % (Auto) Lymph # (Auto) Vernon # (Auto) Eos # (Auto) Baso # (Auto) Abs Immat Gran (auto) Absolute Neuts (auto) Absolute Nucleated RBC Nucleated RBC % (auto) VBG pH VBG pCO2 VBG pO2 VBG HCO3 VBG O2 Saturation VBG Base Excess Anion Gap Estim Creat Clear Calc Estimated GFR POC Glucose 275 H Random Glucose Lactic Acid Calcium Phosphorus Magnesium Total Bilirubin AST ALT Alkaline Phosphatase Ammonia Troponin I High Sens 293.5 H* Total Protein Albumin Echocardiogram Interpretation: Patient: Beau Marie MR#: [id number] : 1955 Acct:[id number] Age/Sex: 69 / M ADM Date: 11/27/24 Loc: [facility] 443-[address]: Mya Reid MD Ordering Physician: Conor Perez MD Date of Service: 12/08/24 Procedure(s): CT abdomen pelvis wo IV con Accession Number(s): [id number] cc: [facility]; Conor Perez MD~ Report Number: [id number]: Total DLP = 0.00 mGy-cm Reason for Exam: Abdominal distention, altered mental status ADDENDUMThis document has been electronically signed by: Richard Brown MD, PHD on 12/08/2024 03:13:41 ADDENDUM: This report was discussed with Neris Wong RN on Dec 08, 2024 03:23:00 EDT. This document has been electronically signed by: Deana Barnes on 12/08/2024 03:23:50 Addendum Dictated By: Richard Brown MD Addendum Signed By: <Electronically signed by Richard Brown MD in OV> 12/08/24323 Addendum Cosigned By: DD/ /28/312 TD/TT: 12/08/2407/28/322 CLINICAL HISTORY: Abdominal distention, altered mental status CT abdomen and pelvis without contrast Comparison: CT/SR - CT ABDOMEN PELVIS WO IV CON - 12/01/24 13:33 EDT Findings: Redemonstration of right lower lobe consolidation and layering effusion. Calcified pleural plaque likely reflects prior asbestos exposure. The heart is enlarged. Liver has a nodular contour, cirrhotic change. Gallstones in the dependent gallbladder. Pancreas, spleen and adrenal glands are within normal limits. The kidneys are non hydronephrotic. Central mesenteric fat stranding is present with contained extraluminal gas in the adjacent mesentery ( axial series 6, image 54 ). Inflammatory changes are associated with a dilated fluid-filled loop of bowel measuring up to 4.3 cm. Fluid in the distal large bowel suggesting abnormal motility. Extensive atherosclerotic vascular calcifications are present. Pelvic contents unremarkable. Normal appendix. No acute fracture. IMPRESSION: Redemonstration of small-bowel obstruction. Contained extraluminal gas in the adjacent mesentery with associated mesenteric edema. Finding may reflect contained perforation versus mesenteric venous gas concerning for ischemic bowel. Please correlate clinically. Stable ancillary CT findings detailed above. This document has been electronically signed by: Richard Brown MD, PHD on 12/08/2024 03:13:41 Dictated By: Richard Brown MD Signed By: <Electronically signed by Richard Brown MD in OV> 12/08/24314 DD/ 2 TD/TT: 12/08/24312 Grain Elevator Agent: Procedures Date of Service Date of Service: 12/09/24 Progress Note: A&P Assessment and plan (1) Abdominal pain: Status: Acute Assessment and Plan: The patient is a 69-year-old male with multiple medical problems noncompliance which makes him physiologically much older than his 69 years of age. He is being treated for gangrene of his foot and his vasculature is very concerning this multiple calcifications throughout almost every vessel in his body. Despite the concerning read on the CT scan of his abdomen and pelvis he does not look ill in his abdominal exam while tender does not reflect significant acute ischemia or perforation. Any surgical intervention would put him in a very high-risk. And extends into discussion was had with the medical team and with the patient and he really does not wish to have all these interventions and testing and treatment carried out. From here we had conversation with the patient's son who referred us to speak to his brother Sp. Who has a lives in the [facility] area and is a nurse who worked as a medic and an ICU nurse. He knows is brothers situation pretty well and is encouraging the family to make Beau DNR DNI and pretty much just hospice care. Patient does not follow recommendations for the basic treatment not taking his meds etc.. This is putting a toll on his entire family. If it is his wishes not to do these interventions then we should change his status and document plan for him. At this moment patient looks not bad and there is no clinical need to urgently operate on him. He is not in agreement to this anyway. Patient's brother we will talk with his sons and come up with a plan to change his code status tomorrow as well as make him hospice. This was discussed with the patient's medical team particularly Dr. Reid who also had this conversation with the family. Between Dr. Reid and myself I think that this would be a very appropriate plan for this patient. Time Spent With Patient Time: Total time managing care of this patient today ____ minutes. Quality Stroke Does the patient have a stroke diagnosis?: No VTE Prior VTE?: No VTE Risk Level:: Medical - moderate - high VTE Device Contraindication: Treatment Not Indicated VTE Drug Contraindication: N/A - Med Ordered
[2024-12-08 16:34] LABS: Glucose, Whole Blood 200 mg/dL (60-115)
--- NOTE | 2024-12-08 17:33 | W.MHC.ACPN ---
Advanced Care Planning Note Advanced Care Planning Note Time spent (in minutes): 35 Narrative: Patient with multiple medical comorbidities including ESRD, PVD, diabetic neuropathy, diabetes, seizure disorder, chronic hypoxemic respiratory failure, obstructive sleep apnea-patient has multiple medical issues including left foot gangrene, metabolic encephalopathy, also SBO-patient is somewhat improving SBO gee, still p.o. intake is not much better, also has multiple admissions and amputation and progressively declining, also progressively Question developing of bowel ischemia: Above management discussed with the patient family in detail length-they understand that patient prognosis is extremely poor. They have not decided yet about goal of care but leaning towards more conservative management including DNR DNI/hospice-they would decide by tomorrow. Problems Discussed (1) Gangrene due to arterial insufficiency:
[2024-12-08 20:01] LABS: Glucose, Whole Blood 128 mg/dL (60-115)
[2024-12-08] MEDS: Parenteral Nutrition 1,320 ML 55 ML IV (20:46)
[2024-12-09] VITALS (7 sets, daily range): BP systolic 106–144; BP diastolic 49–69; PULSE 65–80; RESP 14–18; TEMP 36.2–36.9; O2SAT 94–96; BMI 22.2
--- NOTE | 2024-12-09 07:00 | CA_ITS ---
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 Moderate to severely reduced LV ejection fraction of 30-35% with mild LVH with grade 2 diastolic dysfunction 2. Mild aortic stenosis Findings Left Ventricle Normal left ventricular cavity size. There is mildly increased left ventricular wall thickness. The left ventricular systolic function is moderate to severely decreased. The visually estimated ejection fraction is between 30-35%. There is evidence of regional wall motion abnormalities. Spectral Doppler is indicative of a pseudonormal filling pattern. E/E prime ratio is >15, consistent with elevated filling pressures. Evidence suggests grade II (moderate) diastolic dysfunction. Right Ventricle Normal right ventricular cavity size. Atria The left atrium is likely dilated. Interatrial shunt cannot be excluded. The right atrium is normal in size. Aortic Valve There is mild calcification of the aortic valve. There is mild aortic valve stenosis. There is no aortic valve regurgitation. Mitral Valve There is mild anterior and posterior mitral leaflet thickening. There is mild anterior and mild posterior mitral annular calcification. There is trace mitral valve regurgitation. There is no mitral valve stenosis. Pulmonic Valve The pulmonic valve was not well visualized. Tricuspid Valve Likely normal tricuspid valve structure and function. Tricuspid regurgitation envelope is inadequate for calculation of right ventricular systolic pressure. Indeterminate right atrial pressure. Great Vessels All visible segments of the aorta are normal in size. The pulmonary artery was not well visualized. Venous The inferior vena cava was not well visualized. Pericardium/Pleural The pericardium was not well visualized. Prior Study Comparison No significant change compared to prior study dated: 05/06/2024. Measurements 2D Linear Measurements IVSd: 1.18 0.6-0.9/0.6-1.0 cm LVIDd: 6.27 3.9-5.3/4.2-5.9 cm LVIDd Index: 3.78 2.4-3.2/2.2-3.1 cm/m2 LVIDs: 5.22 2.0-3.6 cm LVPWd: 1.25 0.7-1.1 cm LA Diam: 3.60 2.7-3.8/3.0-4.0 cm LAIDs Index: 2.17 1.5-2.3 cm/m2 LV Mass: 428.49 67-162/88-224 g LV Mass Index: 258.13 43-95/49-115 g/m2 LVOT Diam: 2.10 3.0+(-)1.3 cm 2D Systolic Function EF 4C: 31.20 >55% EF 2C: 36.00 >55% EF BiP: 33.50 >55% Mitral Valve MV Pk E: 0.65 MV PK A: 0.70 MV Decel Time: 193.00 E/A: 0.90 E'Lateral: 3.16 E'Medial: 2.89 E/E' Med: 22.40 E/E' Lat: 20.50 PHT: 56.00 MVA PHT: 3.93 Decel [place]: 3.36 Aortic Valve AoV Pk Shayan: 1.69 AoV Mn Shayan: 0.97 AoV VTI: 0.27 AoV Pk Grad: 11.00 Aov Mn Grad: 5.00 MERI Cont.VTI: 1.58 LVOT LVOT Pk Shayan: 0.76 LVOT Mn Shayan: 0.46 LVOT VTI: 0.12 LVOT Pk Grad: 2.00 LVOT Mn Grad: 1.00 LVOT Diam: 2.10 LVOT Area: 3.46 Diastolic Function MV Pk E: 0.65 MV Pk A: 0.70 E/A: 0.90 E'Medial: 2.89 E/E' Med: 22.40 E' Laterial: 3.16 E/E' Lat: 20.50 Right Ventricle TAPSE (mm): 6.00 TVS' Shayan: 9.37 Great Vessels Aorta Sinus of Valsalva: 2.90 2.0-3.5 cm Ao Asc: 3.20 2.1-3.4 cm Pulmonary Veins Pulm Vein S/D 1.80 Pulmonary Valve PV Pk Shayan: 0.73 Peak PV Grad: 2.00 Updated in Other Vendor System with Status of Final Ko England MD electronically signed on 12/09/2024 12:17:35 PM with status of Final
[2024-12-09 07:32] LABS: Glucose, Whole Blood 165 mg/dL (60-115)
[2024-12-09] MEDS: levETIRAcetam in NaCl (iso-os) 1,000 MG/100 ML PIGGYBACK 400 MG IV ×2 (08:43→22:30)
[2024-12-09] MEDS: 0.9 % Sodium Chloride Flush 3 ML SYRINGE IVFLUSH ×3 (08:54→21:18)
--- NOTE | 2024-12-09 09:37 | W.PM.DNNEP ---
Subjective Subjective Date of Service: 12/09/24 This patient was seen during dialysis. Interval history: Chart reviewed Surgical note appreciated abnormal abd ct -extraluminal gas in the adjacent mesentery with associated mesenteric edema. Physical Exam Vital Signs: Vital Signs: Last Vital Signs Temp 97.3 F 12/09/24 07:31 Pulse 66 12/09/24 07:31 Resp 17 12/09/24 07:31 BP 130/49 L 12/09/24 07:31 Pulse Ox 96 12/09/24 07:31 O2 Del Method Room Air 12/09/24 07:31 O2 Flow Rate 2 12/07/24 15:51 BMI result Body Mass Index 22.2 Const: General: ill appearing Neck: Neck: Yes supple Resp: Auscultation: clear to auscultation bilaterally Cardio: Palpation: no palpable S3 Heart sounds: no rubs GI: Palpation (GI): Tenderness to palpation present (GI) Neuro: Motor exam (neuro): no asterixis Assessment & Plan Assessment and plan (1) ESRD needing dialysis: Status: Acute Plan Fluid status is acceptable. We will proceed with dialysis per protocol on Monday. Hemoglobin noted. No absolute indication for Epogen today. Concur with other medical management She will follow along with the team Time Spent With Patient Time: Total time managing care of this patient today ____ minutes. Procedures Date of Service Date of Service: 12/09/24
--- NOTE | 2024-12-09 10:06 | MHC.CLN ---
PT RETURNED TO NPO PER MD OVER WEEKEND NOW ADVANCED TO C/L REVIEWED LABS DISCUSSED WITH PHARMACY AND PROVIDER CONTINUE PPN AT 55ML/HR WITH 72G LIPIDS PROVIDES 1393 TOTAL KCALS, 132G DEXTROSE, 56G PROTEIN (1320ML TOTAL VOLUME R/T F.R. FROM PPN) PPN TO BE TURNED OFF DURING DIALYSIS REPLETE LYTES NEEDED FOLLOWING WITH TEAM SEE FULL ASSESSMENT
[2024-12-09 11:59] LABS: Glucose, Whole Blood 232 mg/dL (60-115)
--- NOTE | 2024-12-09 12:20 | MHC.CM.PN ---
Addendum entered by Nette Vickers 12/09/24 14:56: PTS DONNA SHAH STATES HE LOST HIS PHONE, THE CURRENT NUMBER HE CAN BE REACHED AT IS [phone]. Addendum entered by Nette Vickers 12/09/24 14:08: THIS CM MET WITH PT AND HIS SON ALYSSA PRESENT AT BEDSIDE ALONG WITH HOSPITALIST, PTS RN, AND RADIO RIGGER TO DISCUSS DISCHARGE PLAN/HOSPICE. PT AND HIS SON ARE IN AGREEMENT WITH A HOSPICE INFO SESSION, AND HOSPICE IS AVAILABLE TO MEET WITH THE PT AND FAMILY TODAY. PT AND HIS SON ARE IN AGREEMENT WITH CHANGING TO DNR/DNI STATUS, NEW MOLST FORM COMPLETED WITH FAMILY AND MD, NOW ON FILE. PT AND HIS SON STATE THEY WISH TO CONTINUE HD AT THIS TIME. Original Note: EMR REVIEWED AND PER MD ROUNDS, PTS CONDITION POOR, GOALS OF CARE DISCUSSION HAVE BEEN ONGOING. THIS CM MET WITH PT WITH THE ASSISTANCE OF A RADIO RIGGER TO DISCUSS ARRANGING A HOSPICE INFORMATIONAL. PT STATES HE WOULD LIKE HOSPICE SERVICES, PT IS REPORTING PAIN, AND STATES HE WANTS TO GO HOME TO . THIS CM PLACED CALL TO PTS DONNA SHAH, VOICEMAIL LEFT, AWAITING RETURN CALL.
[2024-12-09] MEDS: oxyCODONE HCl Immed Release 5 MG TABLET PO (13:34)
[2024-12-09] MEDS: Sevelamer Carbonate Tablet 800 MG TABLET PO ×2 (13:34→17:34)
--- NOTE | 2024-12-09 13:50 | P.PNIM_ITS ---
Subjective Subjective Date of Service: 12/09/24 Interval History: ct -extraluminal gas in the adjacent mesentery with associated mesenteric edema. Review of Systems has diarrhae per staff denies abd pain or chest pain Physical Exam 2 Exam: Exam: General:more awake and alert Resp: CTA bilateral CVS: S1,S2,RRR GI: some distended ( similar abd Skin: No rash Neuro: motor grossly intact Psych: appropriate affect Vital Signs: Vital Signs: Last Vital Signs Temp 98.5 F 12/09/24 11:36 Pulse 78 12/09/24 11:36 Resp 17 12/09/24 11:36 BP 121/61 12/09/24 11:36 Pulse Ox 95 12/09/24 11:36 O2 Del Method Room Air 12/09/24 11:36 O2 Flow Rate 2 12/07/24 15:51 BMI result Body Mass Index 22.2 Objective Data Active Medications Acetaminophen (Acetaminophen 325 Mg Tablet) 975 mg PO Q6H PRN PRN Reason: Pain, Mild 1-3,fever,headache Last Admin: 12/09/24 13:34 Dose: 975 mg Documented By: RODRI Albuterol Sulfate (Albuterol Sulfate 90 Mcg 8 Gm Inhaler) 2 puff INHALE Q4H PRN PRN Reason: Wheezing Allopurinol (Allopurinol 100 Mg Tablet) 100 mg PO MOWEFR [facility] On Hold: 12/08/24 17:25 Last Admin: 12/06/24 11:01 Dose: 100 mg Documented By: LISA Amlodipine Besylate (Amlodipine Besylate 10 Mg Tablet) 10 mg PO DAILY [facility]; Protocol On Hold: 12/08/24 17:25 Last Admin: 12/08/24 11:37 Dose: Not Given Documented By: RODRI Non-Admin Reason: NPO Aspirin (Aspirin Enteric Coated 81 Mg Tablet.Dr) 81 mg PO DAILY [facility] Last Admin: 12/09/24 09:00 Dose: Not Given Documented By: RODRI Non-Admin Reason: Patient Refused Calcium Carbonate (Calcium Carbonate 750 Mg Tab.Chew) 750 mg PO Q4H PRN PRN Reason: Heartburn Last Admin: 12/01/24 07:49 Dose: 750 mg Documented By: RABIA Carvedilol (Carvedilol 6.25 Mg Tablet) 6.25 mg PO BID [facility]; Protocol Last Admin: 12/08/24 11:37 Dose: Not Given Documented By: RODRI Non-Admin Reason: NPO Dextrose (Dextrose 50 % 25 Gm/50 Ml Syringe) 25 gm IVPUSH Q15M PRN; Protocol PRN Reason: per Hypoglycemia Standing Ord. Last Admin: 11/29/24 11:38 Dose: 25 gm Documented By: FRANCISCO Doxazosin Mesylate (Doxazosin Mesylate 2 Mg Tablet) 4 mg PO BEDTIME [facility]; Protocol On Hold: 12/08/24 17:25 Last Admin: 12/07/24 21:22 Dose: Not Given Documented By: SARIAH Non-Admin Reason: Decreased Blood Pressure Comments: Held per DR Edmonds Epoetin Keegan-epbx (Epoetin Keegan-Epbx 10,000 Unit/Ml Vial) 10,000 unit SUBCUT MoWeFr@1645 [facility] Last Admin: 12/06/24 17:07 Dose: 10,000 unit Documented By: LISA Fluticasone/Umeclidinium/Vilanterol (Fluticasone/Umeclidinium/Vilanterol 100/62.5/25 Blst.W.Dev) 1 puff INHALE RDAILY [facility] Last Admin: 12/09/24 08:43 Dose: Not Given Documented By: EMELIA Non-Admin Reason: See Note Glucose (Glucose Gel 15 Gm Gel..Gram.) 15 gm PO Q15M PRN; Protocol PRN Reason: per Hypoglycemia Standing Ord. Heparin Sodium (Porcine) (Heparin Sodium,Porcine 5,000 Unit/Ml Vial) 5,000 unit INTRACATH MOWEFR@1645 [facility] Last Admin: 12/06/24 12:31 Dose: Not Given Documented By: LISA Non-Admin Reason: Off unit: Dialysis Heparin Sodium (Porcine) (Heparin Sodium,Porcine 5,000 Unit/Ml Vial) 5,000 unit SUBCUT Q12H [facility] Last Admin: 12/09/24 04:36 Dose: 5,000 unit Documented By: MAYA Vancomycin HCl 500 mg/ Sodium (Chloride) 110 mls @ 110 mls/hr IV MoWeFr [facility] Piperacillin Sod/Tazobactam (Sod 2.25 gm/ Sodium Chloride) 50 mls @ 100 mls/hr IV Q8H [facility] Last Admin: 12/09/24 12:05 Dose: 100 mls/hr Documented By: RODRI Nutrition (Parenteral) (Parenteral Nutrition) 1,320 mls @ 55 mls/hr IV .Q24H [facility]; Protocol Stop: 12/09/24 20:59 Last Admin: 12/08/24 20:46 Dose: 55 mls/hr Documented By: MAYA Levetiracetam (Keppra) 1,000 mg in 100 mls @ 400 mls/hr IV BID [facility] Last Infusion: 12/09/24 09:08 Dose: Infused Documented By: RODRI Nutrition (Parenteral) (Parenteral Nutrition) 1,320 mls @ 55 mls/hr IV .Q24H [facility]; Protocol Stop: 12/10/24 20:59 Insulin Glargine (Insulin Glargine,Hum.Rec.Anlog 100 Unit/Ml 10 Ml Vial) 15 unit SUBCUT BEDTIME [facility] On Hold: 12/08/24 17:24 Last Admin: 12/07/24 23:02 Dose: Not Given Documented By: SARIAH Non-Admin Reason: per DR Edmonds Insulin Human Lispro (Insulin Lispro 100 Unit/Ml 3 Ml Vial) 0 unit SUBCUT QIDACHS [facility]; Protocol Last Admin: 12/09/24 12:10 Dose: 4 unit Documented By: RODRI Levetiracetam (Levetiracetam 1,000 Mg Tablet) 1,000 mg PO BID [facility] On Hold: 12/08/24 17:24 Last Admin: 12/08/24 11:37 Dose: Not Given Documented By: RODRI Non-Admin Reason: NPO Losartan Potassium (Losartan Potassium 25 Mg Tablet) 25 mg PO DAILY [facility]; Protocol On Hold: 12/08/24 17:26 Last Admin: 12/08/24 11:37 Dose: Not Given Documented By: RODRI Non-Admin Reason: NPO Magnesium Hydroxide (Milk Of Magnesia 30 Ml Oral.Susp) 30 ml PO DAILY PRN PRN Reason: Constipation Last Admin: 12/01/24 07:59 Dose: 30 ml Documented By: RABIA Melatonin (Melatonin 3 Mg Tablet) 6 mg PO BEDTIME PRN PRN Reason: Insomnia Ondansetron HCl (Ondansetron Hcl 4 Mg/2 Ml Vial) 4 mg IVPUSH Q8H PRN PRN Reason: Nausea and Vomiting Last Admin: 12/01/24 08:36 Dose: 4 mg Documented By: RABIA Pharmacy Consult (Consult Rx Parenteral Nutrition Ordering) 1 each MISCELLANE DAILY PRN PRN Reason: Consult order Pregabalin (Pregabalin 75 Mg Capsule) 75 mg PO DAILY [facility] On Hold: 12/08/24 17:24 Last Admin: 12/08/24 11:37 Dose: Not Given Documented By: RODRI Non-Admin Reason: NPO Sevelamer Carbonate (Sevelamer Carbonate Tablet 800 Mg Tablet) 800 mg PO TIDWM [facility] Last Admin: 12/09/24 13:34 Dose: 800 mg Documented By: RODRI Sodium Chloride (0.9 % Sodium Chloride Flush 3 Ml Syringe) [facility] Last Admin: 12/09/24 08:54 Dose: 3 ml Documented By: RODRI Trazodone HCl (Trazodone Hcl 25 Mg Halftab) 12.5 mg PO Q6H PRN On Hold: 12/08/24 17:24 PRN Reason: Pain, Severe (Pain Scale 7-10) Labs 12/08/24 06:59 12/09/24 13:48 Labs: Laboratory Results - last 24 hr 12/08/24 12/08/24 12/09/24 16:29 19:57 07:28 POC Glucose 200 H 128 H 165 H 12/09/24 11:52 POC Glucose 232 H Assessment and Plan (1) PVD (peripheral vascular disease): Status: Acute Plan 69-year-old man with significant past medical history of: * Peripheral vascular disease (PVD) with prior right transmetacarpal amputation (2nd?5th digits) and right below-knee amputation (BKA) * End-stage renal disease (ESRD) on hemodialysis (MWF) * Type 2 diabetes mellitus * Diabetic neuropathy * HypERtension * Seizure disorder * Hyperlipidemia * Obstructive sleep apnea * Chronic hypoxic respiratory failure * Gout Active Issues: Abdominal Pain / Possible Small Bowel Obstruction (SBO) CT 12/01, SBO no transition point,Upper GI and Small bowel series--show ileus Nonspecific bowel gas pattern on imaging; concern for SBO ct abd last night- extraluminal gas in the adjacent mesentery with associated mesenteric edema. Finding may reflect contained perforation versus mesenteric venous gas concerning for ischemic bowel last night events notded. plan: denies abd pain,more awake this afternoon no nausea or vomiting Followed by surgery-ct abd noted:Redemonstration of small-bowel obstruction.Contained extraluminal gas in the adjacent mesentery with associated mesenteric edema. Finding may reflect contained perforation versus mesenteric venous gas concerning for ischemic bowel. Please correlate clinically. family does not want surgery clear liquid diet elevated troponins :flat, though to be demand/esrd. denies any chest pain elevated trop ekg seems similar to prior one episode of nsvt (10 beats ) echo-30% similar to previous study. Left Foot Ischemia and Gangrene Left first toe: dry gangrene; left second toe: dark discoloration, likely ischemic Intractable pain Leukocytosis and elevated CRP Empiric antibiotics: vancomycin and zosyn Continue aspirin and atorvastatin Vascular surgery consulted; intervention deferred for now Monitor CBC for trends End-Stage Renal Disease (ESRD) on Hemodialysis Hemodialysis on Monday, Monday, Monday Recent hyperkalemia, but received dialysis yesterday Check labs today Nephrology consulted for ongoing dialysis management Type 2 Diabetes Mellitus Blood glucose checks before meals and at bedtime. hold lantus until on clears Sliding scale insulin while NPO Diabetic Neuropathy hold pregabalin -avoid sedating meds. Hypertension hold losartan, amlodipine, doxazosin, and carvedilol-bp running 100-120's Seizure Disorder changed to iv levetiracetam Hyperlipidemia Continue statin therapy Obstructive Sleep Apnea Continue CPAP at night Chronic Hypoxic Respiratory Failure Continue home oxygen at 2 L/min via nasal cannula at night Bronchodilator therapy as needed Gout Continue allopurinol Other Orders: Code status: Full. DVT prophylaxis: Heparin Wound care: Left posterior calf wound/Left Foot with new plantar areas of fluctance,Left Foot with new plantar areas of fluctance: 1. Turn and Reposition every 2 hours and as needed for patient comfort.? Use pillows or wedges to support off loading positions. 2. Off Load all bony prominences with use of pillows and heel boots if needed.? Apply Preventative foams where needed. ? 3. Monitor for incontinence and moisture control, use barrier creams when needed for prevention and treatment. 4. Provide adequate and supplemental nutrition.? 5. Order low air loss mattress. 6. When applicable maintain blood glucose levels per Providers order. Left Posterior Calf - Cleanse with normal saline, pat dry. ?Apply barrier to the immediate erin wound, apply durafiber to wound bed cover with dry gauze, ABD pad and gauze wrap, change every other day. Right AKA site - May leave JARROD. Left Great Toe - Summer Shade with Betadine allow to dry. May leave JARROD- if drainage occurs cover with dry gauze. Summer Shade Daily. Right Fingers - Cleanse with saline moist gauze, pat dry. Apply skin prep to periwound, Apply Durafiber AG, followed by gauze and wrap. Change every other day. Above was discussed with the vascular mostly dry gangrene area, we will continue to monitor. Above management discussed with the family in detail length overall prognosis is exteremly poor, spoke to son carri /brother pia : dnr/dni ,son also agreeable for palliative care eval info. Quality Stroke Does the patient have a stroke diagnosis?: No VTE Prior VTE?: No VTE Risk Level:: Medical - moderate - high VTE Device Contraindication: Treatment Not Indicated VTE Drug Contraindication: N/A - Med Ordered
--- NOTE | 2024-12-09 13:53 | P.PNGS_ITS ---
Subjective Subjective Date of Service: 12/09/24 <Karthikeyan Huerta PA-C - Last Filed: 12/09/24 14:03> 12/09/24 <Sonny Holder MD - Last Filed: 12/09/24 14:12> Interval history: Discussed goals of care with patient's son Carri <Karthikeyan Huerta PA-C - Last Filed: 12/09/24 14:03> Physical Exam 2 Vital Signs: Vital Signs: Last Vital Signs Temp 98.5 F 12/09/24 11:36 Pulse 78 12/09/24 11:36 Resp 17 12/09/24 11:36 BP 121/61 12/09/24 11:36 Pulse Ox 95 12/09/24 11:36 O2 Del Method Room Air 12/09/24 11:36 O2 Flow Rate 2 12/07/24 15:51 BMI result Body Mass Index 22.2 <Karthikeyan Huerta PA-C - Last Filed: 12/09/24 14:03> Const: General: comfortable and no acute distress <Karthikeyan Huerta PA-C - Last Filed: 12/09/24 14:03> Orientation/consciousness: patient oriented x3 <Karthikeyan Huerta PA-C - Last Filed: 12/09/24 14:03> GI: Inspection: No distended <SOPHIE Styles Last Filed: 12/09/24 14:03> Neuro: General: patient oriented x3 <SOPHIE Styles Last Filed: 12/09/24 14:03> Objective Data Active Medications Acetaminophen (Acetaminophen 325 Mg Tablet) 975 mg PO Q6H PRN PRN Reason: Pain, Mild 1-3,fever,headache Last Admin: 12/09/24 13:34 Dose: 975 mg Documented By: RODRI Albuterol Sulfate (Albuterol Sulfate 90 Mcg 8 Gm Inhaler) 2 puff INHALE Q4H PRN PRN Reason: Wheezing Allopurinol (Allopurinol 100 Mg Tablet) 100 mg PO MOWEFR [facility] On Hold: 12/08/24 17:25 Last Admin: 12/06/24 11:01 Dose: 100 mg Documented By: LISA Amlodipine Besylate (Amlodipine Besylate 10 Mg Tablet) 10 mg PO DAILY [facility]; Protocol On Hold: 12/08/24 17:25 Last Admin: 12/08/24 11:37 Dose: Not Given Documented By: RODRI Non-Admin Reason: NPO Aspirin (Aspirin Enteric Coated 81 Mg Tablet.) 81 mg PO DAILY [facility] Last Admin: 12/09/24 09:00 Dose: Not Given Documented By: RODRI Non-Admin Reason: Patient Refused Calcium Carbonate (Calcium Carbonate 750 Mg Tab.Chew) 750 mg PO Q4H PRN PRN Reason: Heartburn Last Admin: 12/01/24 07:49 Dose: 750 mg Documented By: RABIA Carvedilol (Carvedilol 6.25 Mg Tablet) 6.25 mg PO BID [facility]; Protocol Last Admin: 12/08/24 11:37 Dose: Not Given Documented By: RODRI Non-Admin Reason: NPO Dextrose (Dextrose 50 % 25 Gm/50 Ml Syringe) 25 gm IVPUSH Q15M PRN; Protocol PRN Reason: per Hypoglycemia Standing Ord. Last Admin: 11/29/24 11:38 Dose: 25 gm Documented By: FRANCISCO Doxazosin Mesylate (Doxazosin Mesylate 2 Mg Tablet) 4 mg PO BEDTIME [facility]; Protocol On Hold: 12/08/24 17:25 Last Admin: 12/07/24 21:22 Dose: Not Given Documented By: SARIAH Non-Admin Reason: Decreased Blood Pressure Comments: Held per DR Edmonds Epoetin Keegan-epbx (Epoetin Keegan-Epbx 10,000 Unit/Ml Vial) 10,000 unit SUBCUT MoWeFr@2235 [facility] Last Admin: 12/06/24 17:07 Dose: 10,000 unit Documented By: LISA Fluticasone/Umeclidinium/Vilanterol (Fluticasone/Umeclidinium/Vilanterol 100/62.5/25 Blst.W.Dev) 1 puff INHALE RDAILY [facility] Last Admin: 12/09/24 08:43 Dose: Not Given Documented By: EMELIA Non-Admin Reason: See Note Glucose (Glucose Gel 15 Gm Gel..Gram.) 15 gm PO Q15M PRN; Protocol PRN Reason: per Hypoglycemia Standing Ord. Heparin Sodium (Porcine) (Heparin Sodium,Porcine 5,000 Unit/Ml Vial) 5,000 unit INTRACATH MOWEFR@1645 [facility] Last Admin: 12/06/24 12:31 Dose: Not Given Documented By: LISA Non-Admin Reason: Off unit: Dialysis Heparin Sodium (Porcine) (Heparin Sodium,Porcine 5,000 Unit/Ml Vial) 5,000 unit SUBCUT Q12H [facility] Last Admin: 12/09/24 04:36 Dose: 5,000 unit Documented By: MAYA Vancomycin HCl 500 mg/ Sodium (Chloride) 110 mls @ 110 mls/hr IV MoWeFr [facility] Piperacillin Sod/Tazobactam (Sod 2.25 gm/ Sodium Chloride) 50 mls @ 100 mls/hr IV Q8H [facility] Last Admin: 12/09/24 12:05 Dose: 100 mls/hr Documented By: RODRI Nutrition (Parenteral) (Parenteral Nutrition) 1,320 mls @ 55 mls/hr IV .Q24H [facility]; Protocol Stop: 12/09/24 20:59 Last Admin: 12/08/24 20:46 Dose: 55 mls/hr Documented By: MAYA Levetiracetam (Keppra) 1,000 mg in 100 mls @ 400 mls/hr IV BID [facility] Last Infusion: 12/09/24 09:08 Dose: Infused Documented By: RODRI Nutrition (Parenteral) (Parenteral Nutrition) 1,320 mls @ 55 mls/hr IV .Q24H [facility]; Protocol Stop: 12/10/24 20:59 Insulin Glargine (Insulin Glargine,Hum.Rec.Anlog 100 Unit/Ml 10 Ml Vial) 15 unit SUBCUT BEDTIME [facility] On Hold: 12/08/24 17:24 Last Admin: 12/07/24 23:02 Dose: Not Given Documented By: SARIAH Non-Admin Reason: per DR Edmonds Insulin Human Lispro (Insulin Lispro 100 Unit/Ml 3 Ml Vial) 0 unit SUBCUT QIDACHS [facility]; Protocol Last Admin: 12/09/24 12:10 Dose: 4 unit Documented By: RODRI Levetiracetam (Levetiracetam 1,000 Mg Tablet) 1,000 mg PO BID [facility] On Hold: 12/08/24 17:24 Last Admin: 12/08/24 11:37 Dose: Not Given Documented By: RODRI Non-Admin Reason: NPO Losartan Potassium (Losartan Potassium 25 Mg Tablet) 25 mg PO DAILY [facility]; Protocol On Hold: 12/08/24 17:26 Last Admin: 12/08/24 11:37 Dose: Not Given Documented By: RODRI Non-Admin Reason: NPO Magnesium Hydroxide (Milk Of Magnesia 30 Ml Oral.Susp) 30 ml PO DAILY PRN PRN Reason: Constipation Last Admin: 12/01/24 07:59 Dose: 30 ml Documented By: RABIA Melatonin (Melatonin 3 Mg Tablet) 6 mg PO BEDTIME PRN PRN Reason: Insomnia Ondansetron HCl (Ondansetron Hcl 4 Mg/2 Ml Vial) 4 mg IVPUSH Q8H PRN PRN Reason: Nausea and Vomiting Last Admin: 12/01/24 08:36 Dose: 4 mg Documented By: RABIA Pharmacy Consult (Consult Rx Parenteral Nutrition Ordering) 1 each MISCELLANE DAILY PRN PRN Reason: Consult order Pregabalin (Pregabalin 75 Mg Capsule) 75 mg PO DAILY [facility] On Hold: 12/08/24 17:24 Last Admin: 12/08/24 11:37 Dose: Not Given Documented By: RODRI Non-Admin Reason: NPO Sevelamer Carbonate (Sevelamer Carbonate Tablet 800 Mg Tablet) 800 mg PO TIDWM [facility] Last Admin: 12/09/24 13:34 Dose: 800 mg Documented By: RODRI Sodium Chloride (0.9 % Sodium Chloride Flush 3 Ml Syringe) 3 ml IVFLUSH QSHIFT [facility] Last Admin: 12/09/24 08:54 Dose: 3 ml Documented By: RODRI Trazodone HCl (Trazodone Hcl 25 Mg Halftab) 12.5 mg PO Q6H PRN On Hold: 12/08/24 17:24 PRN Reason: Pain, Severe (Pain Scale 7-10) <Karthikeyan Huerta PA-C - Last Filed: 12/09/24 14:03> Labs CBC & Chem 7: 12/08/24 06:59 12/08/24 06:59 <Karthikeyan Huerta PA-C - Last Filed: 12/09/24 14:03> Labs: Laboratory Results - last 24 hr 12/08/24 12/08/24 12/09/24 16:29 19:57 07:28 POC Glucose 200 H 128 H 165 H 12/09/24 11:52 POC Glucose 232 H <Karthikeyan Huerta PA-C - Last Filed: 12/09/24 14:03> Procedures Date of Service Date of Service: 12/09/24 <Karthikeyan Huerta PA-C - Last Filed: 12/09/24 14:03> 12/09/24 <Sonny Holder MD - Last Filed: 12/09/24 14:12> Progress Note: A&P Assessment and plan (1) Ileus: Status: Acute <Karthikeyan Huerta PA-C - Last Filed: 12/09/24 14:03> (2) Bowel perforation: Status: Acute <Karthikeyan Huerta PA-C - Last Filed: 12/09/24 14:03> Assessment and Plan: Question of microperforation on a CAT scan of the weekend I had a long discussion with the patient as well as the healthcare proxy Carri who is his son at bedside They do not want any surgical intervention The understand that the patient presents with significant and perioperative risks with any major surgery His abdomen is otherwise soft and benign currently His son wants to just be able to bring him home The patient also wants to eat Long-term prognosis poor seen and examined with KYLAH Huerta <Sonny Holder MD - Last Filed: 12/09/24 14:12> Assessment and Plan: 69-year-old male followed by General surgery for ileus. Over the weekend he deteriorated, with increased confusion. He had a cat scan showing possible ischemia. Dr. Reid asked us to re-evaluate the patient today because they were initially thinking of discharging on the hospice. However there was some confusion between he and the family about this. State they do not want hospice however after discussion with the patient and his son carri we came to a decision that they do not want to pursue any surgical intervention. Additionally this patient has many other medical problems including significant vascular disease making him a very poor surgical candidate, for which he would likely not tolerate a big procedure. The son believes that it would be best for the patient to be discharged as he is much more comfortable at home and often feels much better after being discharge. We are in agreement on this plan, he is okay to have diet as tolerated. No surgical intervention planned. Further medical management per the hospitalist team. Please reconsult as needed <Karthikeyan Huerta PA-C - Last Filed: 12/09/24 14:03> Time Spent With Patient Time: Total time managing care of this patient today ____ minutes. <Karthikeyan Huerta PA-C - Last Filed: 12/09/24 14:03> Quality Stroke Does the patient have a stroke diagnosis?: No <Karthikeyan Huerta PA-C - Last Filed: 12/09/24 14:03> VTE Prior VTE?: No <Karthikeyan Huerta PA-C - Last Filed: 12/09/24 14:03> VTE Risk Level:: Medical - moderate - high <Karthikeyan Huerta PA-C - Last Filed: 12/09/24 14:03> VTE Device Contraindication: Treatment Not Indicated <Karthikeyan Huerta PA-C - Last Filed: 12/09/24 14:03> VTE Drug Contraindication: N/A - Med Ordered <SOPHIE Styles Last Filed: 12/09/24 14:03>
[2024-12-09 14:12] LABS: Albumin Level 3.3 g/dL (3.5-5.0); Anion Gap 18 (12-20); Blood Urea Nitrogen 32 mg/dL (9-16); Calcium 10.3 mg/dL (8.4-10.2); Carbon Dioxide 24 mmol/L (22-29); Chloride 98 mmol/L (96-108); Creatinine Clr Calc Pharmacy 13.8; Estimated Glomerular Filt Rate 14; Magnesium 1.9 mg/dL (1.6-2.6); Potassium 3.3 mmol/L (3.3-5.1); Sodium 137 mmol/L (135-145)
[2024-12-09 16:30] LABS: Glucose, Whole Blood 342 mg/dL (60-115)
--- NOTE | 2024-12-09 16:41 | W.PM.IDCN ---
History of Present Illness Data of Consult Service Date: 12/09/24 Requesting physician: Mya Reid Primary Care Provider: [facility] Reason for consult: left foot ulcers/lesion He presents with left foot redness toes for a week. He did see Dr Cannon of Vascular. He has leukocytosis Review of Systems Review of Systems: Yes all other systems are reviewed and are negative [facility] Past Medical History Medical History Peripheral arterial disease Gangrene of hand Above knee amputation of right lower extremity Left ventricular systolic dysfunction (LVSD) PVD (peripheral vascular disease) Postop check Acute pericardial effusion Right sided weakness Dehiscence of wound Dry gangrene Cellulitis of right foot HFrEF (heart failure with reduced ejection fraction) Chronic combined systolic and diastolic CHF (congestive heart failure) Chronic pericardial effusion Arthritis Asthma Restless leg syndrome Acute on chronic systolic and diastolic heart failure, NYHA class 3 Anemia Occlusive thrombus Pulmonary edema ROBERT (obstructive sleep apnea) Type 2 diabetes mellitus Hyperlipidemia Hypertension A-V fistula ESRD on dialysis Falling Family History Family History Father No problems noted. Mother No problems noted. Family history: reviewed and not pertinent Surgical History Surgical History Status post creation of pericardial window Hx of right BKA History of transmetatarsal amputation of foot Status post transmetatarsal amputation of right foot Postop check History of surgery H/O colonoscopy Recurrent pleural effusion Pleural effusion on right (07/13/23) Social History Social History Household Members: Children Household Members Other:: son Housing: House Are you a primary home care coordinator to a significant other at home: No Do you presently have visiting nurse or other home services: Yes Unable to assess alcohol history related to: Unknown Alcohol intake: former Comment: 1:1 for SI Patient Tobacco Use Status: Former Tobacco user Tobacco use type: Cigarette Second Hand Smoke Exposure: No Advance Directives Date on File: 10/04/23 service: No Current occupational status: disabled 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 Meds Allergies Allergy/AdvReac Type Severity Reaction Status Date / Time Iodinated Contrast Media Allergy Severe Facial Verified 11/27/24 11:09 (Contrast Dye) Swelling hydralazine AdvReac Severe vasculitis Verified 11/27/24 11:09 Active Medications: Current Medications Acetaminophen (Acetaminophen 325 Mg Tablet) 975 mg PO Q6H PRN PRN Reason: Pain, Mild 1-3,fever,headache Last Admin: 12/09/24 13:34 Dose: 975 mg Albuterol Sulfate (Albuterol Sulfate 90 Mcg 8 Gm Inhaler) 2 puff INHALE Q4H PRN PRN Reason: Wheezing Allopurinol (Allopurinol 100 Mg Tablet) 100 mg PO MOWEFR [facility] On Hold: 12/08/24 17:25 Last Admin: 12/06/24 11:01 Dose: 100 mg Amlodipine Besylate (Amlodipine Besylate 10 Mg Tablet) 10 mg PO DAILY [facility]; Protocol On Hold: 12/08/24 17:25 Last Admin: 12/08/24 11:37 Dose: Not Given Aspirin (Aspirin Enteric Coated 81 Mg Tablet.Dr) 81 mg PO DAILY [facility] Last Admin: 12/09/24 09:00 Dose: Not Given Calcium Carbonate (Calcium Carbonate 750 Mg Tab.Chew) 750 mg PO Q4H PRN PRN Reason: Heartburn Last Admin: 12/01/24 07:49 Dose: 750 mg Carvedilol (Carvedilol 6.25 Mg Tablet) 6.25 mg PO BID [facility]; Protocol Last Admin: 12/08/24 11:37 Dose: Not Given Dextrose (Dextrose 50 % 25 Gm/50 Ml Syringe) 25 gm IVPUSH Q15M PRN; Protocol PRN Reason: per Hypoglycemia Standing Ord. Last Admin: 11/29/24 11:38 Dose: 25 gm Doxazosin Mesylate (Doxazosin Mesylate 2 Mg Tablet) 4 mg PO BEDTIME [facility]; Protocol On Hold: 12/08/24 17:25 Last Admin: 12/07/24 21:22 Dose: Not Given Epoetin Ekegan-epbx (Epoetin Keegan-Epbx 10,000 Unit/Ml Vial) 10,000 unit SUBCUT MoWeFr@1645 [facility] Last Admin: 12/06/24 17:07 Dose: 10,000 unit Fluticasone/Umeclidinium/Vilanterol (Fluticasone/Umeclidinium/Vilanterol 100/62.5/25 Blst.W.Dev) 1 puff INHALE RDAILY [facility] Last Admin: 12/09/24 08:43 Dose: Not Given Glucose (Glucose Gel 15 Gm Gel..Gram.) 15 gm PO Q15M PRN; Protocol PRN Reason: per Hypoglycemia Standing Ord. Heparin Sodium (Porcine) (Heparin Sodium,Porcine 5,000 Unit/Ml Vial) 5,000 unit INTRACATH [id number]@1645 [facility] Last Admin: 12/06/24 12:31 Dose: Not Given Heparin Sodium (Porcine) (Heparin Sodium,Porcine 5,000 Unit/Ml Vial) 5,000 unit SUBCUT Q12H [facility] Last Admin: 12/09/24 04:36 Dose: 5,000 unit Vancomycin HCl 500 mg/ Sodium (Chloride) 110 mls @ 110 mls/hr IV MoWeFr [facility] Piperacillin Sod/Tazobactam (Sod 2.25 gm/ Sodium Chloride) 50 mls @ 100 mls/hr IV Q8H [facility] Last Infusion: 12/09/24 14:48 Dose: Infused Nutrition (Parenteral) (Parenteral Nutrition) 1,320 mls @ 55 mls/hr IV .Q24H [facility]; Protocol Stop: 12/09/24 20:59 Last Admin: 12/08/24 20:46 Dose: 55 mls/hr Levetiracetam (Keppra) 1,000 mg in 100 mls @ 400 mls/hr IV BID [facility] Last Infusion: 12/09/24 09:08 Dose: Infused Nutrition (Parenteral) (Parenteral Nutrition) 1,320 mls @ 55 mls/hr IV .Q24H [facility]; Protocol Stop: 12/10/24 20:59 Insulin Glargine (Insulin Glargine,Hum.Rec.Anlog 100 Unit/Ml 10 Ml Vial) 15 unit SUBCUT BEDTIME [facility] On Hold: 12/08/24 17:24 Last Admin: 12/07/24 23:02 Dose: Not Given Insulin Human Lispro (Insulin Lispro 100 Unit/Ml 3 Ml Vial) 0 unit SUBCUT QIDACHS [facility]; Protocol Last Admin: 12/09/24 12:10 Dose: 4 unit Levetiracetam (Levetiracetam 1,000 Mg Tablet) 1,000 mg PO BID [facility] On Hold: 12/08/24 17:24 Last Admin: 12/08/24 11:37 Dose: Not Given Losartan Potassium (Losartan Potassium 25 Mg Tablet) 25 mg PO DAILY [facility]; Protocol On Hold: 12/08/24 17:26 Last Admin: 12/08/24 11:37 Dose: Not Given Magnesium Hydroxide (Milk Of Magnesia 30 Ml Oral.Susp) 30 ml PO DAILY PRN PRN Reason: Constipation Last Admin: 12/01/24 07:59 Dose: 30 ml Melatonin (Melatonin 3 Mg Tablet) 6 mg PO BEDTIME PRN PRN Reason: Insomnia Ondansetron HCl (Ondansetron Hcl 4 Mg/2 Ml Vial) 4 mg IVPUSH Q8H PRN PRN Reason: Nausea and Vomiting Last Admin: 12/01/24 08:36 Dose: 4 mg Pharmacy Consult (Consult Rx Parenteral Nutrition Ordering) 1 each MISCELLANE DAILY PRN PRN Reason: Consult order Pregabalin (Pregabalin 75 Mg Capsule) 75 mg PO DAILY [facility] On Hold: 12/08/24 17:24 Last Admin: 12/08/24 11:37 Dose: Not Given Sevelamer Carbonate (Sevelamer Carbonate Tablet 800 Mg Tablet) 800 mg PO TIDWM [facility] Last Admin: 12/09/24 13:34 Dose: 800 mg Sodium Chloride (0.9 % Sodium Chloride Flush 3 Ml Syringe) 3 ml IVFLUSH [facility] Last Admin: 12/09/24 08:54 Dose: 3 ml Trazodone HCl (Trazodone Hcl 25 Mg Halftab) 12.5 mg PO Q6H PRN On Hold: 12/08/24 17:24 PRN Reason: Pain, Severe (Pain Scale 7-10) Home Medications ?Medication ?Instructions ?Recorded ?Confirmed ?Last Taken ?Type allopurinol 100 mg tablet 100 mg PO MOWEFR 04/19/22 11/27/24 11/25/24 History doxazosin 4 mg tablet 4 mg PO BEDTIME 04/19/22 11/27/24 11/26/24 History omeprazole 20 mg capsule,delayed 20 mg PO DAILY@0630 04/19/22 11/27/24 11/26/24 History release pregabalin 75 mg capsule 75 mg PO DAILY 06/20/23 11/27/24 11/26/24 History aspirin 81 mg tablet,delayed 81 mg PO DAILY 04/05/24 11/27/2411/26/25 History release fluticasone fur. 100 mcg-umeclid 1 inh inhalation DAILY 04/05/24 11/27/24 11/26/24 History 62.5 mcg-vilant 25 mcg inhalat.powder (Trelegy Ellipta) losartan 25 mg tablet 25 mg PO DAILY 04/05/24 11/27/24 11/26/24 History insulin glargine 100 unit/mL (3 22 unit subcut BEDTIME 05/01/24 11/27/24 11/26/24 History mL) subcutaneous pen (Lantus Solostar U-100 Insulin) amlodipine 10 mg tablet 10 mg PO DAILY 05/26/24 11/27/24 11/26/24 History insulin lispro 100 unit/mL See Protocol subcut TIDAC PRN 05/26/24 11/27/24 08/21/24 History subcutaneous solution (Humalog Hyperglycemia U-100 Insulin) albuterol sulfate 90 mcg/actuation 2 puff inhalation Q4H PRN wheezing 08/22/24 11/27/24 Unknown History aerosol inhaler (Ventolin HFA) carvedilol 6.25 mg tablet 6.25 mg PO BID 08/22/24 11/27/24 11/26/24 History ipratropium 0.5 mg-albuterol 3 mg 3 ml inhalation QID PRN Shortness 08/22/24 11/27/24 08/21/24 History (2.5 mg base)/3 mL nebulization Of Breath soln sucroferric oxyhydroxide 500 mg 500 mg PO TIDWM 08/22/24 11/27/24 11/26/24 History chewable tablet (Velphoro) Physical Exam Vital Signs: Vital Signs: Last Vital Signs Temp 97.6 F 12/09/24 15:00 Pulse 72 12/09/24 15:00 Resp 15 12/09/24 15:00 BP 106/62 12/09/24 15:00 Pulse Ox 94 12/09/24 15:00 O2 Del Method Room Air 12/09/24 15:00 O2 Flow Rate 2 12/07/24 15:51 BMI result Body Mass Index 22.2 Const: General: cooperative HEENT: Head: Yes normal to inspection Face and sinus: Yes normal facial exam Mouth: Normal oral and palatal mucosa present Teeth and gingiva: dentition normal Eyes: General: appearance normal, both eyes and all related structures Pupils: Equal, round and reactive pupils present Resp: Effort & Inspection: normal respiratory effort Cardio: Rate: regular rate Rhythm: regular rhythm GI: Palpation (GI): Soft to palpation and nontender : General: Yes no CVA tenderness Back/Spine/Pelvis: Back: no CVA tenderness Skin: General skin exam: no rashes or lesions noted Neuro: General: moves all extremities Cranial nerves: Yes Equal, round and reactive pupils present Extrem: Other: reddened areas left toes ,swollen digits General: Yes normal to inspection Psych: Appearance: grossly normal Results Labs 12/08/24 06:59 12/09/24 13:48 Labs: BMP 12/09/24 12/09/24 12/09/24 13:48 13:48 13:48 Sodium 137 Cancelled Potassium 3.3 Cancelled Chloride 98 Carbon Dioxide BUN Creatinine Calcium 12/09/24 12/09/24 12/09/24 13:48 13:48 13:48 Sodium Potassium Chloride Cancelled Carbon Dioxide 24 Cancelled BUN 32 H Cancelled Creatinine 4.36 H* Calcium 12/09/24 12/09/24 13:48 13:48 Sodium Potassium Chloride Carbon Dioxide BUN Creatinine Cancelled Calcium 10.3 H D Cancelled Liver Function 12/09/24 Range/Units 13:48 Albumin 3.3 L (3.5-5.0) g/dL Microbiology Microbiology Results: Microbiology 11/27/24 12:20 Blood - Venous Blood Culture - Final No growth after 5 days. 11/27/24 12:20 Blood - Venous Blood Culture - Final No growth after 5 days. Assessment and Plan (1) PVD (peripheral vascular disease): Status: Acute (2) Gangrene due to arterial insufficiency: Status: Acute Plan Continue antibiotics for now. Check CT evaluate OM. If CT negative po Augmentin and Doxycycline for two weeks.
[2024-12-09 20:45] LABS: Glucose, Whole Blood 290 mg/dL (60-115)
[2024-12-09] MEDS: Parenteral Nutrition 1,320 ML 55 ML IV (22:52)
[2024-12-10 01:26] LABS: Glucose, Whole Blood 428 mg/dL (60-115)
[2024-12-10 03:17] VITALS: BP 151/85; PULSE 68; RESP 18; TEMP 36.2; O2SAT 99
[2024-12-10 04:19] LABS: Glucose, Whole Blood 386 mg/dL (60-115)
[2024-12-10 07:12] VITALS: BP 132/63; PULSE 73; RESP 18; TEMP 37.5; O2SAT 95
[2024-12-10 07:28] LABS: Glucose, Whole Blood 380 mg/dL (60-115)
[2024-12-10] MEDS: Fluticasone/Umeclidinium/Vilanterol 100/62.5/25 BLST.W.DEV 1 PUFF INHALE (07:30)
[2024-12-10 07:31] LABS: Albumin Level 2.9 g/dL (3.5-5.0); Anion Gap 20 (12-20); Blood Urea Nitrogen 53 mg/dL (9-16); Carbon Dioxide 21 mmol/L (22-29); Chloride 98 mmol/L (96-108); Creatinine Clr Calc Pharmacy 11.3; Estimated Glomerular Filt Rate 11; Magnesium 1.9 mg/dL (1.6-2.6); Potassium 3.4 mmol/L (3.3-5.1); Sodium 136 mmol/L (135-145)
[2024-12-10 07:32] VITALS: PULSE 71; RESP 20; O2SAT 95
[2024-12-10 07:37] LABS: Calcium 9.2 mg/dL (8.4-10.2)
[2024-12-10] MEDS: Aspirin Enteric Coated 81 MG TABLET.DR PO (08:22)
[2024-12-10] MEDS: Sevelamer Carbonate Tablet 800 MG TABLET PO ×2 (08:22→11:56)
[2024-12-10] MEDS: 0.9 % Sodium Chloride Flush 3 ML SYRINGE IVFLUSH (08:23)
[2024-12-10] MEDS: Insulin Glargine,Hum.rec.anlog 100 UNIT/ML 10 ML VIAL SUBCUT (08:23)
[2024-12-10] MEDS: levETIRAcetam in NaCl (iso-os) 1,000 MG/100 ML PIGGYBACK 400 MG IV (08:23)
[2024-12-10 10:01] LABS: CDiff Gene PCR NEGATIVE (Negative)
--- NOTE | 2024-12-10 10:14 | MHC.CLN ---
F/U DIET ADVANCED TO CLEARS PO 25% X2 MEALS OF CLEAR LIQUID HOWEVER PT'S FAMILY BRINGING IN FOOD FROM HOME-PT CONSUMING RICE PT IS NOW DNR/DNI AND POSSIBLE TRANSITION TO HOSPICE; PT REQUESTING TO GO HOME REVIEWED LABS DISCUSSED WITH PHARMACY AND PROVIDER CONTINUE PPN PER MD AT 55ML/HR WITH 72G LIPIDS PROVIDES 1393 TOTAL KCALS, 132G DEXTROSE, 56G PROTEIN (1320ML TOTAL VOLUME R/T F.R. FROM PPN) PPN TO BE TURNED OFF DURING DIALYSIS REPLETE LYTES NEEDED FOLLOWING WITH TEAM FOR PLAN OF CARE
[2024-12-10 11:22] LABS: E. coli EAEC Not Detected (Not Detect.); E. coli EPEC Not Detected (Not Detect.); E. coli ETEC Not Detected (Not Detect.); E. coli STEC Not Detected (Not Detect.); Shigella sp./EIEC Not Detected (Not Detect.)
[2024-12-10 11:51] VITALS: BP 138/66; PULSE 68; RESP 18; TEMP 36.7; O2SAT 95
[2024-12-10 11:53] LABS: Glucose, Whole Blood 218 mg/dL (60-115)
[2024-12-10] MEDS: oxyCODONE HCl Immed Release 5 MG TABLET 2.5 MG PO (11:57)
--- NOTE | 2024-12-10 14:23 | P.DS_ITS ---
DS: Providers Provider Date of Service: 12/10/24 Date of admission: 11/27/24 13:56 Date of discharge: 12/10/24 Primary care physician: [facility] Consults: 11/27/24 16:13 Consult to Vascular Surgery Routine Consulting Provider: [facility] Reason for consultation: Left 1st and 2nd toes necrosis Has provider been notified: No 11/28/24 07:38 Consult to Nephrology Routine Consulting Provider: [facility] Reason for consultation: ESRD on HD Has provider been notified: No 11/28/24 14:26 Consult to Gastroenterology Routine Consulting Provider: Lindsay Carranza Reason for consultation: abdominal pain Has provider been notified: No Consult to General Surgery Routine Consulting Provider: [facility] General Sur[facility] Reason for consultation: abdominal pain? sbo Has provider been notified: No 12/01/24 21:52 Consult to Wound Care Routine Reason for consultation: R hand L leg 12/09/24 13:36 Consult to Infectious Diseases Routine Consulting Provider: [facility] Reason for consultation: foot infecation Has provider been notified: No Attending physician on discharge: Mya Reid Discharging clinician: Mya Reid DS: Diagnosis Discharge Diagnosis (1) PVD (peripheral vascular disease): Status: Acute (2) Gangrene due to arterial insufficiency: Status: Acute DS: Summary Hospital Course Hospital Course: HPI:69 years old man with past medical history significant for ESRD on HD (MWF), type 2 diabetes mellitus, gout, essential hypertension, PVD, 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 He denied any fever, dizziness, nausea, vomiting or diarrhea. He denied any acute cardiopulmonary, gastrointestinal or genitourinary symptoms. He is a former tobacco smoker and denied tobacco abuse. Patient mentioned that he has been receiving hemodialysis through a right supraclavicular IV catheters. He also mentioned that the catheter was malfunctioning to the and he missed the last 20 minutes of sees hemodialysis. In the ED, he was found to have stable vital signs. Blood workup was remarkable for leukocytosis of 16.2 hemoglobin 9.5, MCV 74 platelets 224. There is no lactic acidosis. There are no electrolyte imbalances. BUN is 34 and creatinine 5.39. Glucose 165. LFTs are normal except for elevated alk-phos. CRP is 14.74. Albumin is 3.4. Rest foot x-ray showed no finding osteomyelitis. Abdominal and chest x-ray showed cardiomegaly with stable right basilar effusions scaring, right IJ central line terminates in the right atrial and extensive vascular calcification. ECG showed sinus rhythm with premature supraventricular complex and no acute ischemic changes. ED tx: Morphine 8 mg IV total, Zofran 4 mg IV, Zosyn 4.5 mg IV, vancomycin 1 g IV. Hospital course:69 y/o man with a PMHx significant for PVD s/p right transmetacarpal amputation (2nd-5th digits) and right BKA who presents with: Left first toe: dry gangrene; left second toe: dark discoloration, likely ischemic Intractable pain Leukocytosis and elevated CRP Started on IV antibiotics, seen by Vascular surgery consulted-intervention deferred. Ct foot to reviewed with ID: Recommended-6 weeks of vanco with dialysis-and it will be January 20. Furthermore: Over the hospital stay patient has Abdominal Pain / Possible Small Bowel Obstruction (SBO) CT 12/01, SBO no transition point,Upper GI and Small bowel series--show ileus Nonspecific bowel gas pattern on imaging; concern for SBO. Patient was initially somewhat improving and starting tolerating some diet but on 12/07 : Patient was more lethargic-subsequently had workup including CTA abdomen which showed extraluminal gas in the adjacent mesentery with associated mesenteric edema. Finding may reflect contained perforation versus mesenteric venous gas concerning for ischemic bowel Patient was seen by surgery: Possible question of microperforation/ischemia: Additionally this patient has many other medical problems including significant vascular disease making him a very poor surgical candidate, for which he would likely not tolerate a big procedure. The son believes that it would be best for the patient to be discharged as he is much more comfortable at home . elevated troponins :flat, though to be demand/esrd. denies any chest pain elevated trop ekg seems similar to prior one episode of nsvt (10 beats ),No new episodes Afterwards. echo-30% similar to previous study. Wound care: Left posterior calf wound/Left Foot with new plantar areas of fluctance,Left Foot with new plantar areas of fluctance: 1. Turn and Reposition every 2 hours and as needed for patient comfort. Use pillows or wedges to support off loading positions. 2. Off Load all bony prominences with use of pillows and heel boots if needed. Apply Preventative foams where needed. 3. Monitor for incontinence and moisture control, use barrier creams when needed for prevention and treatment. 4. Provide adequate and supplemental nutrition. 6. When applicable maintain blood glucose levels per Providers order. Left Posterior Calf - Cleanse with normal saline, pat dry. Apply barrier to the immediate erin wound, apply durafiber to wound bed cover with dry gauze, ABD pad and gauze wrap, change every other day. Right AKA site - May leave WOOLEN TESTER. Left Great Toe - [place] with Betadine allow to dry. May leave JARROD- if drainage occurs cover with dry gauze. [place] Daily. Right Fingers - Cleanse with saline moist gauze, pat dry. Apply skin prep to periwound, Apply Durafiber AG, followed by gauze and wrap. Change every other day. Above management discussed with vascular, Nephro, general surgery: Overall prognosis is very poor. Discussed with the family multiple times- many other medical problems including significant vascular disease making him a very poor surgical candidate, for which he would likely not tolerate a big procedure. The son believes that it would be best for the patient to be discharged as he is much more comfortable at home . He also decided for DNR DNI, also saying that he went to his father to be comfortable but having some conservative management along with it and want to take him home. He wants him to be comfortable. Currently not interested in hospice but understands his prognosis is extremely poor and he can pass at home. Assessment and plan coordination time in total discussion and patient discharge plan spent is 50 minutes. Time Attestation Total time managing care of this patient today: 45 mintues. Discharge Coordination Time (in mins): 45 min Quality: Safe Use of Opioids Does Pt have an Active Cancer Diagnosis on the Problem List?: No Quality: Stroke Does the patient have a stroke diagnosis?: No Physical Exam Exam: Exam: General:more awake and alert Resp: CTA bilateral CVS: S1,S2,RRR GI: not distended,nt. Skin: No rash Neuro: motor grossly intact Psych: appropriate affect Vital Signs: Vital Signs: Last Vital Signs Temp 98.0 F 12/10/24 11:51 Pulse 68 12/10/24 11:51 Resp 18 12/10/24 11:51 BP 138/66 12/10/24 11:51 Pulse Ox 95 12/10/24 11:51 O2 Del Method Room Air 12/10/24 11:51 O2 Flow Rate 2 12/07/24 15:51 BMI result Body Mass Index 22.2 DS: Data Data Completed and Pending Completed studies during hospitalization [Text1]: Procedures Detachment at Right 1st Toe, Complete, Open Approach (03/19/24) Detachment at Right 2nd Toe, Complete, Open Approach (03/19/24) Detachment at Right 3rd Toe, Complete, Open Approach (03/19/24) Detachment at Right 4th Toe, Complete, Open Approach (03/19/24) Detachment at Right 5th Toe, Complete, Open Approach (03/19/24) Detachment at Right Index Finger, Complete, Open Approach (08/22/24) Detachment at Right Index Finger, High, Open Approach (08/22/24) Detachment at Right Little Finger, Complete, Open Approach (08/22/24) Detachment at Right Lower Leg, Mid, Open Approach (04/05/24) Detachment at Right Middle Finger, Complete, Open Approach (08/22/24) Detachment at Right Ring Finger, Complete, Open Approach (08/22/24) Detachment at Right Upper Leg, Mid, Open Approach (05/01/24) Drainage of Pericardial Cavity with Drainage Device, Open Approach (05/01/24) Drainage of Right Pleural Cavity with Drainage Device, Percutaneous Approach (11/28/23) Drainage of Right Pleural Cavity, Percutaneous Approach (04/10/23) Excision of Left Lower Leg Subcutaneous Tissue and Fascia, Open Approach, Diagnostic (05/01/24) Excision of Right Finger Phalanx, Open Approach (08/22/24) Excision of Right Metacarpal, Open Approach (08/22/24) Excision of Right Metatarsal, Open Approach (04/05/24) Insertion of Monitoring Device into Lower Artery, Percutaneous Approach (05/01/24) Introduction of Anesthetic Agent into Peripheral Nerves and Plexi, Percutaneous Approach (08/22/24) Introduction of Other Therapeutic Substance into Pleural Cavity, Percutaneous Approach (09/30/23) Introduction of Other Thrombolytic into Pleural Cavity, Percutaneous Approach (09/30/23) Monitoring of Arterial Pressure, Peripheral, Percutaneous Approach (05/01/24) Monitoring of Arterial Pulse, Peripheral, Percutaneous Approach (05/01/24) Performance of Urinary Filtration, Intermittent, Less than 6 Hours Per Day (08/22/24) Transfusion of Nonautologous Red Blood Cells into Peripheral Vein, Percutaneous Approach (05/01/24) Labs on day of discharge: Laboratory Results - last 24 hr 12/09/24 12/09/24 12/09/24 16:26 17:55 20:39 Sodium Potassium Chloride Carbon Dioxide Anion Gap BUN Creatinine Estim Creat Clear Calc Estimated GFR POC Glucose 342 H 290 H Random Glucose Calcium Phosphorus Magnesium Albumin Stl C. cayetanensis PCR Stool Rotavirus A PCR Stl Adenov F PCR Stool Astrovirus (PCR) Stool Campylobacter PCR Stool Cryptosporidium PCR Stl Sh Tox Pr E STEC PCR Stool E coli O157 PCR Stl Enterotoxigenic E PCR Stool EPEC (PCR) Stool EAEC (PCR) Stl E. histolytica PCR Stool Giardia Lamblia PCR Stl P. shigelloides PCR Stool Salmonella PCR Stool Sapovirus (PCR) Stl Shigella/EIEC PCR St Y.enterocolitica PCR Stool Vibrio (PCR) Stl Vibrio cholerae PCR Stl Norovirus GI/GII PCR Random Vancomycin 16.4 C. difficile Tox B Gene 12/10/24 12/10/24 12/10/24 01:21 04:15 06:08 Sodium 136 Potassium 3.4 Chloride 98 Carbon Dioxide 21 L Anion Gap 20 BUN 53 H Creatinine 5.36 H* Estim Creat Clear Calc 11.3 Estimated GFR 11 POC Glucose 428 H* 386 H* Random Glucose 437 H* Calcium 9.2 D Phosphorus 4.1 Magnesium 1.9 Albumin 2.9 L Stl C. cayetanensis PCR Stool Rotavirus A PCR Stl Adenov F PCR Stool Astrovirus (PCR) Stool Campylobacter PCR Stool Cryptosporidium PCR Stl Sh Tox Pr E STEC PCR Stool E coli O157 PCR Stl Enterotoxigenic E PCR Stool EPEC (PCR) Stool EAEC (PCR) Stl E. histolytica PCR Stool Giardia Lamblia PCR Stl P. shigelloides PCR Stool Salmonella PCR Stool Sapovirus (PCR) Stl Shigella/EIEC PCR St Y.enterocolitica PCR Stool Vibrio (PCR) Stl Vibrio cholerae PCR Stl Norovirus GI/GII PCR Random Vancomycin C. difficile Tox B Gene 12/10/24 12/10/24 12/10/24 07:13 08:56 11:44 Sodium Potassium Chloride Carbon Dioxide Anion Gap BUN Creatinine Estim Creat Clear Calc Estimated GFR POC Glucose 380 H* 218 H Random Glucose Calcium Phosphorus Magnesium Albumin Stl C. cayetanensis PCR Not Detected Stool Rotavirus A PCR Not Detected Stl Adenov F 40/41 PCR Not Detected Stool Astrovirus (PCR) Not Detected Stool Campylobacter PCR Not Detected Stool Cryptosporidium PCR Not Detected Stl Sh Tox Pr E STEC PCR Not Detected Stool E coli O157 PCR Not applicable Stl Enterotoxigenic E PCR Not Detected Stool EPEC (PCR) Not Detected Stool EAEC (PCR) Not Detected Stl E. histolytica PCR Not Detected Stool Giardia Lamblia PCR Not Detected Stl P. shigelloides PCR Not Detected Stool Salmonella PCR Not Detected Stool Sapovirus (PCR) Not Detected Stl Shigella/EIEC PCR Not Detected St Y.enterocolitica PCR Not Detected Stool Vibrio (PCR) Not Detected Stl Vibrio cholerae PCR Not Detected Stl Norovirus GI/GII PCR Not Detected Random Vancomycin C. difficile Tox B Gene NEGATIVE Discharge Plan Discharge Anticipated Discharge Date/Time: 12/10/24 13:42 Patient Disposition: Home Health Service Discharge Diagnosis: possible bowel microperforation/ischemia , foot infection ulcers Referrals: [facility] [Outside] - 1 Week Center,On License Of [facility] [Primary Care Provider, Primary Care] - 1 Week Discharge Medications: New oxycodone 5 mg capsule 2.5 mg PO BID PRN (Reason: pain (scale score 7-10)) Qty: 10 0RF Rx Instructions: Partial Fill upon patient request. vancomycin 1,000 mg recon soln 500 mg IV .3xweek Qty: 1 0RF Continued (DME) PleurX catheter drainage kits 1000cc kits See Rx Instructions .Route .MEDSUPPLY Qty: 10 6RF Rx Instructions: As directed allopurinol 100 mg tablet 100 mg PO MOWEFR Rx Instructions: GIVE AFTER DIALYSIS omeprazole 20 mg capsule,delayed release(DR/EC) 20 mg PO DAILY@0630 doxazosin 4 mg tablet 4 mg PO BEDTIME ipratropium-albuterol 0.5 mg-3 mg(2.5 mg base)/3 mL solution for nebulization 3 ml inhalation QID PRN (Reason: Shortness Of Breath) albuterol sulfate [Ventolin HFA] 90 mcg/actuation HFA aerosol inhaler 2 puff INHALATION Q4H PRN (Reason: wheezing) Velphoro 500 mg tablet,chewable 500 mg PO TIDWM carvedilol 6.25 mg Tablet 6.25 mg PO BID Rx Instructions: must administer with a meal/food oxycodone 5 mg Tablet 5 mg PO Q4H PRN (Reason: Pain, Severe (Pain Scale 7-10)) Qty: 18 0RF Rx Instructions: Partial Fill upon patient request. levetiracetam 1,000 mg Tablet 1,000 mg PO BID Qty: 60 0RF pregabalin 75 mg capsule 75 mg PO DAILY aspirin 81 mg Tablet,Delayed Release (Dr/Ec) 81 mg PO DAILY losartan 25 mg tablet 25 mg PO DAILY Trelegy Ellipta 100-62.5-25 mcg Blister With Device 1 inh INHALATION DAILY insulin glargine [Lantus Solostar U-100 Insulin] 100 unit/mL (3 mL) insulin pen 22 unit subcut BEDTIME amlodipine 10 mg Tablet 10 mg PO DAILY insulin lispro [Humalog U-100 Insulin] 100 unit/mL Solution See Protocol subcut TIDAC PRN (Reason: Hyperglycemia) Protocol: Insulin Correction Scale Less than or equal to 110 ---- Give (units): 0 111 to 150 Give (units): 0 151 to 200 Give (units): 2 201 to 250 Give (units): 4 251 to 300 Give (units): 6 301 to 350 Give (units): 8 Greater than 350 Give (units): 10 Call MD if Blood Glucose > : 350 Discharge Orders: Discharge Order (Routine); Ordered 12/10/24 Ordered By: Mya Reid Diet: Advance to usual diet Activity on Discharge: As tolerated Stand Alone Forms: Patient Portal Discharge page Print Language: [place] Care Plan Goals: As above. Continue vancomycin-for 6 weeks until 01/20/25. Health Concerns: as above. Plan of Treatment: as above. Assessment: as above.
--- NOTE | 2024-12-10 16:06 | MHC.CM.PN ---
PT IS MEDICALLY CLEARED FOR DISCHARGE HOME WITH RESUMPTION OF PREVIOUS [facility], [employer] PROVIDED BY HIS SON ALYSSA, AND OUTPT HD AT [facility] IN [place] ON . SECOND IMM GIVEN 12/10. PTS SON ALYSSA WILL TRANSPORT HIM HOME TODAY.
== END 2024-12-10 15:30 | disposition home health service (06) | DRG 299 ==
LOC: HO.ED 14:08 → HO.EDOVER 14:20 → HO.S3 15:03 → HO.IMC 12-07 23:33
PROVIDERS: Internal Medicine; Internal Medicine Critical Care Medicine; Nurse Practitioner Family; Physician Assistant Medical; Registered Nurse Emergency; Admitting Provider Internal Medicine; Emergency Provider Emergency Medicine; PCP Dentist General Practice; Visit Provider Internal Medicine
DX: E11.52 Type 2 diabetes mellitus with diabetic peripheral angiopathy with gangrene (principal); K63.1 Perforation of intestine (nontraumatic); N18.6 End stage renal disease; I70.262 Atherosclerosis of native arteries of extremities with gangrene, left leg; J96.11 Chronic respiratory failure with hypoxia; K56.0 Paralytic ileus; K55.9 Vascular disorder of intestine, unspecified; I12.0 Hypertensive chronic kidney disease with stage 5 chronic kidney disease or end stage renal disease; L97.529 Non-pressure chronic ulcer of other part of left foot with unspecified severity; E11.22 Type 2 diabetes mellitus with diabetic chronic kidney disease; G40.909 Epilepsy, unspecified, not intractable, without status epilepticus; E11.42 Type 2 diabetes mellitus with diabetic polyneuropathy; E78.5 Hyperlipidemia, unspecified; M10.9 Gout, unspecified; G47.33 Obstructive sleep apnea (adult) (pediatric); Z99.2 Dependence on renal dialysis; E87.5 Hyperkalemia; Z87.891 Personal history of nicotine dependence; Z89.511 Acquired absence of right leg below knee; Z79.4 Long term (current) use of insulin; Z79.82 Long term (current) use of aspirin; Z79.899 Other long term (current) drug therapy
CPT/HCPCS: 36415; 70450; 71045; 73630; 73700; 74018; 74022; 74176; 74250; 80048; 80053; 80076; 80202; 82040; 82140; 82803; 82947; 83605; 83735; 84100; 84478; 84484; 85025; 85027; 85652; 86140; 87040; 87493; 87507; 90999; 93005; 93306; 93923; 93926; 93976; 94640; 99285; J1171; J1644; J1953; J2270; J2405; J2470; J2543; J3374; Q5106

== ENCOUNTER → 2024-11-27 12:07 | Outpatient (BNV) | payer MEDICARE, MEDICAID, SELFPAY | PROVIDERS: Emergency Provider Emergency Medicine; PCP Dentist General Practice; Visit Provider Radiology Diagnostic Radiology | DX: R11.10 Vomiting, unspecified (principal); I51.7 Cardiomegaly; M85.872 Other specified disorders of bone density and structure, left ankle and foot; I70.202 Unspecified atherosclerosis of native arteries of extremities, left leg; Z95.9 Presence of cardiac and vascular implant and graft, unspecified; Z98.890 Other specified postprocedural states | CPT/HCPCS: 73630; 74022 ==

== ENCOUNTER → 2024-11-27 12:09 | Outpatient (BNV) | payer MEDICARE, MEDICAID, SELFPAY | PROVIDERS: Admitting Provider Internal Medicine; Emergency Provider Emergency Medicine; PCP Dentist General Practice; Visit Provider Internal Medicine Cardiovascular Disease | DX: I49.1 Atrial premature depolarization (principal); I51.7 Cardiomegaly | CPT/HCPCS: 93010 ==

== ENCOUNTER 2024-11-27 13:56 | Outpatient (BNV) | payer MEDICARE, MEDICAID, SELFPAY | END 2024-12-08 00:52 | PROVIDERS: Admitting Provider Internal Medicine; Emergency Provider Emergency Medicine; PCP Dentist General Practice; Visit Provider General Practice | DX: K56.609 Unspecified intestinal obstruction, unspecified as to partial versus complete obstruction (principal); R53.83 Other fatigue | CPT/HCPCS: 70450; 74176 ==

== ENCOUNTER 2024-11-27 13:56 | Outpatient (BNV) | payer MEDICARE, MEDICAID, SELFPAY | END 2024-11-29 07:00 | PROVIDERS: Admitting Provider Internal Medicine; Emergency Provider Emergency Medicine; PCP Dentist General Practice; Visit Provider Radiology Diagnostic Radiology | DX: I73.9 Peripheral vascular disease, unspecified (principal); K55.1 Chronic vascular disorders of intestine | CPT/HCPCS: 93923; 93926; 93976 ==

== ENCOUNTER 2024-11-27 13:56 | Outpatient (BNV) | payer MEDICARE, MEDICAID, SELFPAY | END 2024-12-01 10:15 | PROVIDERS: Admitting Provider Internal Medicine; Emergency Provider Emergency Medicine; PCP Dentist General Practice; Visit Provider Radiology Diagnostic Radiology | DX: K57.30 Diverticulosis of large intestine without perforation or abscess without bleeding (principal); K74.60 Unspecified cirrhosis of liver; R60.1 Generalized edema; K56.609 Unspecified intestinal obstruction, unspecified as to partial versus complete obstruction; R11.10 Vomiting, unspecified | CPT/HCPCS: 74018; 74176 ==

== ENCOUNTER 2024-11-27 13:56 | Outpatient (BNV) | payer MEDICARE, MEDICAID, SELFPAY | END 2024-12-09 07:00 | PROVIDERS: Admitting Provider Internal Medicine; Emergency Provider Emergency Medicine; PCP Dentist General Practice; Visit Provider Internal Medicine Cardiovascular Disease | DX: I50.20 Unspecified systolic (congestive) heart failure (principal) | CPT/HCPCS: 93306 ==

== ENCOUNTER 2024-11-27 13:56 | Outpatient (BNV) | payer MEDICARE, MEDICAID, SELFPAY | END 2024-12-02 12:40 | PROVIDERS: Admitting Provider Internal Medicine; Emergency Provider Emergency Medicine; PCP Dentist General Practice; Visit Provider Radiology Diagnostic Radiology | DX: K56.609 Unspecified intestinal obstruction, unspecified as to partial versus complete obstruction (principal) | CPT/HCPCS: 74250 ==

== ENCOUNTER 2024-11-27 13:56 | Outpatient (BNV) | payer MEDICARE, MEDICAID, SELFPAY | END 2024-11-28 13:34 | PROVIDERS: Admitting Provider Internal Medicine; Emergency Provider Emergency Medicine; PCP Dentist General Practice; Visit Provider Radiology Diagnostic Radiology | DX: K52.9 Noninfective gastroenteritis and colitis, unspecified (principal); I51.7 Cardiomegaly | CPT/HCPCS: 71045; 74176 ==

== ENCOUNTER 2024-11-27 13:56 | Outpatient (BNV) | payer MEDICARE, MEDICAID, SELFPAY | END 2024-12-09 16:09 | PROVIDERS: Admitting Provider Internal Medicine; Emergency Provider Emergency Medicine; PCP Dentist General Practice; Visit Provider Radiology Diagnostic Radiology | DX: L97.529 Non-pressure chronic ulcer of other part of left foot with unspecified severity (principal); M85.872 Other specified disorders of bone density and structure, left ankle and foot; I70.202 Unspecified atherosclerosis of native arteries of extremities, left leg; R60.0 Localized edema | CPT/HCPCS: 73700 ==

== ENCOUNTER → 2024-11-27 13:56 | Outpatient (BNV) | payer MEDICARE, MEDICAID, SELFPAY | PROVIDERS: Admitting Provider Internal Medicine; Emergency Provider Emergency Medicine; PCP Dentist General Practice; Visit Provider Internal Medicine Hypertension Specialist | DX: N18.6 End stage renal disease (principal); Z99.2 Dependence on renal dialysis | CPT/HCPCS: 90935 ==

== ENCOUNTER → 2024-11-27 13:56 | Outpatient (BNV) | payer MEDICARE, MEDICAID, SELFPAY | PROVIDERS: Admitting Provider Internal Medicine; Emergency Provider Emergency Medicine; PCP Dentist General Practice; Visit Provider Internal Medicine Gastroenterology | DX: R10.9 Unspecified abdominal pain (principal) | CPT/HCPCS: 99222 ==

== ENCOUNTER → 2024-11-27 13:56 | Outpatient (BNV) | payer MEDICARE, MEDICAID, SELFPAY | PROVIDERS: Admitting Provider Internal Medicine; Emergency Provider Emergency Medicine; PCP Dentist General Practice; Visit Provider Internal Medicine | DX: I96 Gangrene, not elsewhere classified (principal) | CPT/HCPCS: 99222 ==

== ENCOUNTER → 2024-11-27 13:56 | Outpatient (BNV) | payer MEDICARE, MEDICAID, SELFPAY | PROVIDERS: Admitting Provider Internal Medicine; Emergency Provider Emergency Medicine; PCP Dentist General Practice; Visit Provider Surgery Vascular Surgery | DX: I73.9 Peripheral vascular disease, unspecified (principal) | CPT/HCPCS: 99222 ==

== ENCOUNTER → 2024-11-27 13:56 | Outpatient (BNV) | payer MEDICARE, MEDICAID, SELFPAY | PROVIDERS: Admitting Provider Internal Medicine; Emergency Provider Emergency Medicine; PCP Dentist General Practice | DX: K56.7 Ileus, unspecified (principal) | CPT/HCPCS: 99222; 99232; 99499 ==

== ENCOUNTER → 2024-11-27 13:56 | Outpatient (BNV) | payer MEDICARE, MEDICAID, SELFPAY | PROVIDERS: Admitting Provider Internal Medicine; Emergency Provider Emergency Medicine; PCP Dentist General Practice; Visit Provider Physician Assistant Medical | DX: I77.1 Stricture of artery (principal); I96 Gangrene, not elsewhere classified | CPT/HCPCS: 99232; 99233 ==